=== PATIENT | female | born 1970 | race Caucasian/White ===

== ENCOUNTER 2016-06-10 16:37 | Emergency (ER) | payer OTHER ==
[~2016-06-10] VITALS: Ht 162.6 cm; Wt 97.0 kg
[~2016-06-10 16:37] MED LIST: ATV5X PO; GABA-112 PO; INSPMPNVLG SQ; MAGN400T6 PO; ONDA4TAB46 PO; OXYC-57 PO; PRLSR20 PO; SRQ400 PO; TRAM-10 PO
[2016-06-10 16:44] VITALS: TEMP 37.4; Ht 162.6 cm; Wt 97.0 kg
[2016-06-10] MEDS ORDERED: SODIUM CHLORIDE 0.9% 1000ML 1,000 ML IV STA (17:43)
[2016-06-10] MEDS ORDERED: METOCLOPRAMIDE HCL INJ 5 MG/ML 2 ML VIAL IM STA (17:48)
--- NOTE | 2016-06-10 17:48 | EMERGENCY ROOM VISIT NOTE ---
History Report prepared by Ingridibsharon: Aida Fry Under the Supervision of: Dr. Raoul Ayala D.O. First contact with patient: 17:39 Chief Complaint: URINARY SYMPTOMS Stated Complaint: BACK PAIN, CRAMPING, TROUBLE URINATING Nursing Triage Summary: Possible UTI. Has alot of pain in lower back, cramping, and trouble urinating. History of kidney stones. History of Present Illness The patient is a 45 year old female who presents to the Emergency Room with complaints of persistent urinary symptoms that started last night. She complains of increased urinary frequency, difficulty urinating and a feeling of incomplete emptying. She also complains of pain in her lower abdomen and bilateral low back. She rates her discomfort as a 9/10. She admits to a history of previous kidney stones, but states she has not had one in about 20 years. The patient also complains of nausea but has not vomited or experienced diarrhea. She has a history of cirrhosis and states that has been causing her pain recently as well. She has not noticed any gross hematuria. Source of History: patient Onset: last night Position: other (urinary system) Symptom Intensity: 9/10 Timing: other (persistent) Associated Symptoms: + nausea, No diarrhea, No vomiting Review of Systems See HPI for pertinent positives and negatives. A total of ten systems were reviewed and were otherwise negative. Past Medical & Surgical Medical Problems: [phone] [id number] (2) Abdominal pain (3) Abdominal pain (4) Abdominal pain (5) Abdominal pain (6) Abdominal pain (7) Back pain (8) Bipolar Disorder, Unspecified (9) Bronchitis (10) Change in mental status (11) Cirrhosis of liver (12) Diab Estelita Wo Compl, Type Ii Or Unspec Type, Not Uncntrld (13) Dizziness (14) Dysmetabolic Syndrome X (15) Dysthymic Disorder (16) Head ache (17) Headache (18) Hyperglycemia (19) Hyperglycemia (20) Hypertension Nos (21) Hypokalemia (22) Irritable Bowel Syndrome (23) Migraine (24) Migraine (25) Migraine Unspecified W/O Intractable Migraine (26) MENDEZ (27) Palpitations (28) Pancreatitis (29) Pneumonia (30) Reflux Esophagitis (31) right kidney fibrosis (32) Slurred speech (33) Syncopal episodes (34) Syncope (35) Vaginal spotting (36) Weakness Surgical Problems: (1) Port catheter in place (2) Tubal Ligation Status Family History Diabetes mellitus Hypertension Kidney disease Social History Smoking Status: Never Smoker Alcohol Use: none Drug Use: none Marital Status: Housing Status: lives with family Occupation Status: unemployed Current/Historical Medications Scheduled Atenolol (Tenormin), 100 MG PO BID Atorvastatin (Atorvastatin Calcium), 40 MG PO HS Gabapentin (Neurontin), 100 MG PO TID Insulin Aspart (novoLOG INSULIN PUMP ), UNITS SQ UD Lisinopril (Lisinopril), 10 MG PO HS Magnesium Oxide (Mag-Ox), 400 MG PO HS Meloxicam (Mobic), 7.5 MG PO HS Metformin Hcl (Glucophage), 1,000 MG PO BIDM Omeprazole (Prilosec), 20 MG PO BID Potassium Chloride (Micro-K Ext Rel), 10 MEQ PO BID Quetiapine Fumarate (Quetiapine Fumarate), 400 MG PO HS Quetiapine Fumarate (Seroquel), 50 MG PO HS Ranitidine Hcl (Zantac), 150 MG PO BID Sulfa/Trimethoprim (Bactrim Ds 800MG/160MG), 1 TAB PO BID Tramadol (Ultram), 200 MG PO HS Trazodone Hcl (Trazodone), 200 MG PO HS Scheduled PRN Furosemide (Lasix), 40 MG PO DAILY PRN for Fluid Retention Glucagon (Glucagon Emergency Kit), 1 MG INJ UD PRN for HYPOGLYCEMIA PROTOCOL Ibuprofen (Advil), 600 MG PO Q6H PRN for Pain Loratadine (Claritin), 10 MG PO DAILY PRN for Allergies Ondansetron (Ondansetron HCl), 4 MG PO Q6H PRN for Nausea Oxycodone/Acetaminophen 5MG/325MG (Percocet 5MG/325MG), 1-2 TABLETS PO Q4H PRN for Pain Polyethylene Glycol 3350 (Miralax), 1 TBS PO HS PRN for Severe constipation Allergies Coded Allergies: Naproxen (Verified Allergy, Unknown, BLEEDING, 06/10/16) Physical Exam Vital Signs Date Time Temp Pulse Resp B/P Pulse Ox O2 Delivery O2 Flow Rate FiO2 06/10/16 19:40 103 19 145/89 96 Room Air 06/10/16 18:16 104 14 136/90 96 Room Air 1/3/17 16:44 37.4 116 18 148/97 95 Room Air Physical Exam GENERAL: Awake, alert, well-appearing, in no acute distress HENT: Normocephalic, atraumatic. Oropharynx unremarkable. EYES: Normal conjunctiva. Sclera non-icteric. NECK: Supple. No nuchal rigidity. FROM. No JVD. RESPIRATORY: Clear to auscultation. CARDIAC: Regular rate, normal rhythm. Extremities warm and well perfused. Pulses equal. ABDOMEN: Soft, non-distended. Diffusely tender throughout entire abdomen. No rebound or guarding. No masses. Normo active bowel sounds. RECTAL: Deferred. MUSCULOSKELETAL: Chest examination reveals no tenderness. The back is symmetrical on inspection without obvious abnormality. CVA tenderness to palpation bilaterally. No joint edema. LOWER EXTREMITIES: Calves are equal size bilaterally and non-tender. No edema. No discoloration. NEURO: Normal sensorium. No sensory or motor deficits noted. SKIN: No rash or jaundice noted. Medical Decision & Procedures ER Provider Diagnostic Interpretation: This CT scan was reviewed and interpreted by the radiologist and reviewed by myself. ABDOMEN AND PELVIS CT WITHOUT CONTRAST IMPRESSION: 1. Left-sided nephrolithiasis. No right renal calculi. No hydronephrosis. 2. No definite bowel wall thickening or obstruction. 3. Normal appendix. 4. Cirrhotic liver is again noted. Electronically signed by: Rudy Borden M.D. 06/10/2016 6:49 PM Laboratory Results 06/10/16 18:20 Red Blood Count 4.62, Mean Corpuscular Volume 82.9, Mean Corpuscular Hemoglobin 28.6, Mean Corpuscular Hemoglobin Concent 34.5, Mean Platelet Volume 9.6, Neutrophils (%) (Auto) 72.9, Lymphocytes (%) (Auto) 18.1, Monocytes (%) (Auto) 6.7, Eosinophils (%) (Auto) 1.7, Basophils (%) (Auto) 0.3, Neutrophils # (Auto) 8.56, Lymphocytes # (Auto) 2.12, Monocytes # (Auto) 0.79, Eosinophils # (Auto) 0.20, Basophils # (Auto) 0.03 06/10/16 18:20 Test 06/10/16 18:15 06/10/16 18:20 Urine Color YELLOW Urine Appearance CLOUDY (CLEAR) Urine pH 5.5 (4.5-7.5) Urine Specific [place] 1.011 (1.000-1.030) Urine Protein TRACE (NEG) Urine Glucose (UA) NEG (NEG) Urine Ketones NEG (NEG) Urine Occult Blood 2+ (NEG) Urine Nitrite NEG (NEG) Urine Bilirubin NEG (NEG) Urine Urobilinogen NEG (NEG) Urine Leukocyte Esterase LARGE (NEG) Urine WBC (Auto) >30 /hpf (0-5) Urine RBC (Auto) 10-30 /hpf (0-4) Urine Hyaline Casts (Auto) 1-5 /lpf (0-5) Urine Epithelial Cells (Auto) 20-30 /lpf (0-5) Urine Bacteria (Auto) NEG (NEG) White Blood Count 11.73 K/uL (4.8-10.8) Red Blood Count 4.62 M/uL (4.2-5.4) Hemoglobin 13.2 g/dL (12.0-16.0) Hematocrit 38.3 % (37-47) Mean Corpuscular Volume 82.9 fL (80-100) Mean Corpuscular Hemoglobin 28.6 pg (25-34) Mean Corpuscular Hemoglobin Concent 34.5 g/dl (32-36) Platelet Count 163 K/uL (130-400) Mean Platelet Volume 9.6 fL (7.4-10.4) Neutrophils (%) (Auto) 72.9 % Lymphocytes (%) (Auto) 18.1 % Monocytes (%) (Auto) 6.7 % Eosinophils (%) (Auto) 1.7 % Basophils (%) (Auto) 0.3 % Neutrophils # (Auto) 8.56 K/uL (1.4-6.5) Lymphocytes # (Auto) 2.12 K/uL (1.2-3.4) Monocytes # (Auto) 0.79 K/uL (0.11-0.59) Eosinophils # (Auto) 0.20 K/uL (0-0.5) Basophils # (Auto) 0.03 K/uL (0-0.2) RDW Standard Deviation 42.6 fL (36.4-46.3) RDW Coefficient of Variation 14.2 % (11.5-14.5) Immature Granulocyte % (Auto) 0.3 % Immature Granulocyte # (Auto) 0.03 K/uL (0.00-0.02) Anion Gap 10.0 mmol/L (3-11) Est Creatinine Clear Calc Drug Dose 94.3 ml/min Estimated GFR () 94.6 Estimated GFR (Non- 81.6 BUN/Creatinine Ratio 11.6 (10-20) Calcium Level 9.2 mg/dl (8.5-10.1) Total Bilirubin 0.4 mg/dl (0.2-1) Direct Bilirubin 0.1 mg/dl (0-0.2) Aspartate Amino Transf (AST/SGOT) 42 U/L (15-37) Alanine Aminotransferase (ALT/SGPT) 28 U/L (12-78) Alkaline Phosphatase 143 U/L (45-117) Total Protein 8.1 gm/dl (6.4-8.2) Albumin 3.8 gm/dl (3.4-5.0) Laboratory results reviewed by me Medications Administered Medications (Trade) Dose Ordered Sig/Farzad Route Start Time Stop Time Status Last Admin Dose Admin Sodium Chloride (Nss 1000ml) 1,000 ml @ 999 mls/hr Q1H1M STAT IV 06/10/16 17:43 06/10/16 18:43 DC 06/10/16 18:13 999 MLS/HR Morphine Sulfate (MoRPHine SULFATE INJ) 8 mg Q1H PRN IV 06/10/16 18:00 06/10/16 20:31 DC 06/10/16 18:14 8 MG Metoclopramide HCl (Reglan Inj) 10 mg NOW STAT IV 06/10/16 18:14 06/10/16 18:16 DC 06/10/16 18:29 10 MG Morphine Sulfate (MoRPHine SULFATE INJ) 10 mg NOW STAT IV 06/10/16 19:10 06/10/16 19:11 DC 06/10/16 19:36 10 MG Trimethoprim/ Sulfamethoxazole (Septra Ds 800/ 160MG Tab) 1 tab NOW STAT PO 06/10/16 19:19 06/10/16 19:20 DC 06/10/16 19:36 1 TAB Trimethoprim/ Sulfamethoxazole (Sulfameth/ Trimeth Ds 800/ 160MG Home Pack) 1 homepack UD ONCE PO 06/10/16 19:30 06/10/16 19:31 DC 06/10/16 19:37 1 HOMEPACK Phenazopyridine HCl (Phenazopyridine HCl 200MG Home Pack) 1 homepack UD ONCE PO 06/10/16 19:30 06/10/16 19:31 DC 06/10/16 19:37 1 HOMEPACK Phenazopyridine HCl (Pyridium Tab) 200 mg NOW STAT PO 06/10/16 19:19 06/10/16 19:20 DC 06/10/16 19:37 200 MG ED Course 174: The patient was evaluated in room B8. A complete history and physical exam was performed. 1743: NSS 1000 ml @ 999 mls/hr IV. 174: Reglan 10 mg IV. 1800: Morphine Sulfate 8 mg IV. 1813: Reglan 10 mg IV. 1899: I reevaluated the patient. She states her pain is slightly better. I will order more medication. 1909: Morphine Sulfate 10 mg IV. 1918: Pyridium 200 mg PO, Septra Ds 800/160 mg 1 tab PO. 1929: Phenazopyridine 200 mg 1 home pack PO, Trimethoprim/Sulfamethoxazole 800/ 10 mg 1 home pack PO. 1934: I reevaluated the patient. She is feeling much better. I discussed her results and discharge instructions and she verbalized complete understanding and agreement. Medical Decision Prior records/ancillary studies reviewed. Triage Nursing notes reviewed and agree them. The patient's history was concerning for abdominal pain. Differential diagnosis: Etiologies such as appendicitis, diverticulitis, PUD, biliary pathology, UTI, pancreatitis, obstruction, mesenteric ischemia, aortic pathology, infections, inflammatory bowel disease, renal colic, as well as others were entertained. MDM: Patient is a 45-year-old female with a history of cirrhosis secondary to an MENDEZ. She comes in with a complaint of dysuria. Hesitancy and urinary frequency with abdominal pain. Patient was concern for a kidney stone. Lab CT scan and urinalysis review stable cirrhosis and a UTI. Pain was treated with morphine. She was made comfortable. She remained stable and was comfortable in the emergency room under my care she understands instructions take all of her medications as directed. She'll return to emergency department as needed and follow up with her primary care provider 2 days. The patient's presentation and history is c/w the impression provided. A partial list of DDx that has been considered is listed above. By the evaluation outlined above other emergent etiologies such as those listed in the differential, as well as others, were deemed relatively unlikely. The patient has been informed about today's findings. All questions were answered to satisfaction and understanding. They are pleased with the care provided. Patient education and return instructions were discussed as per my usual and the patient was discharged in stable condition as agreed upon by the patient. The patient was referred for close follow-up and informed that they will need to call to schedule appointment during the next business hours. The chart was completed utilizing a scribe and [employer] Speech voice recognition software. Utilizing these services results in errors at time as they are imperfect. Grammatical errors, random word insertions, pronoun errors, and incomplete sentences are an occasional consequence of this system due to software limitations, ambient noise, and hardware issues. Any formal questions or concerns about the content, text, or information contained within the body of this dictation should be directly addressed to the physician for clarification. Impression Primary Impression: Urinary tract infection Additional Impressions: Hemorrhagic cystitis, Symptoms of urinary tract infection, MENDEZ (nonalcoholic steatohepatitis), Liver cirrhosis secondary to MENDEZ, Abdominal pain Scribe Attestation The scribe's documentation has been prepared under my direction and personally reviewed by me in its entirety. I confirm that the note above accurately reflects all work, treatment, procedures, and medical decision making performed by me. Departure Information Dispostion Home / Self-Care Prescriptions Sulfa/Trimethoprim (Bactrim Ds 800MG/160MG) Tab 1 TAB PO BID, #14 TAB Prov: Raoul Ayala JR., DO 06/10/16 Referrals Scott Weldon M.D. (PCP) Patient Instructions A Signature Page, ED Abd Pain Cause Unkn Fem Ch, ED Hematuria, ED UTI Cystitis Female, My [facility] Additional Instructions Please take all medications as directed to completion. Please drink plenty of fluids. Return to the emergency department in 12 hours if pain is uncontrolled with medications or with vomiting and unable to keep medications in. CT scan shows stable cirrhosis.
[2016-06-10] MEDS ORDERED: MELO7.5T5 PO (17:56)
[2016-06-10] MEDS ORDERED: MoRPHine SULFATE 10 MG/ML CARP/VIAL IV PRN (18:00)
[2016-06-10] MEDS ORDERED: METOCLOPRAMIDE HCL INJ 5 MG/ML 2 ML VIAL IV STA (18:14)
[2016-06-10 18:38] LABS: BASO % 0.3 %; BASO ABS # 0.03 K/uL (0-0.2); COMPLETE YES; EOS % 1.7 %; HEMATOCRIT 38.3 % (37-47); IG% 0.3 %; LYMPH % 18.1 %; LYMPH ABS # 2.12 K/uL (1.2-3.4); MEAN CELL VOLUME 82.9 fL (80-100); MEAN CORPUSCULAR HEMOGLOBIN 28.6 pg (25-34); MEAN CORPUSCULAR HGB CONC 34.5 g/dl (32-36); MEAN PLATELET VOLUME 9.6 fL (7.4-10.4); MONO % 6.7 %; NEUT % 72.9 %; PLATELET COUNT 163 K/uL (130-400); RED BLOOD COUNT 4.62 M/uL (4.2-5.4); WHITE BLOOD COUNT 11.73 K/uL (4.8-10.8)
--- NOTE | 2016-06-10 18:51 | DIAGNOSTIC IMAGING REPORT ---
ABDOMEN AND PELVIS CT WITHOUT CONTRAST CT DOSE: 1668.16 mGy.cm HISTORY: Back pain. Difficulty urinating. ? Kidney stone, h/o stones and MENDEZ w/ cirrhosis TECHNIQUE: Multiaxial CT images of the abdomen and pelvis were performed without the use of intravenous and oral contrast according to the standard department stone protocol. COMPARISON STUDY: Abdomen and pelvis CT 11/22/2015. FINDINGS: The lung bases are clear. Calcified disc fragment at L4-L5 with mild central canal narrowing. This remains unchanged. The liver is mildly enlarged and diffusely heterogeneous. The liver demonstrates a nodular contour consistent with cirrhosis. There is a 5 mm hypodense lesion within the right hepatic lobe which is too small to characterize. The unenhanced spleen, gallbladder, adrenal glands, pancreas, and right kidney are unremarkable. There is a punctate stone within the upper pole of the left kidney. No hydronephrosis. The bladder is unremarkable. No ureteral calculi. No retroperitoneal lymphadenopathy. The uterus and bilateral adnexa are unremarkable. Suboptimal evaluation for bowel pathology due to the lack of intravenous and oral contrast. However, there is no definite bowel wall thickening or obstruction. Normal appendix. IMPRESSION: 1. Left-sided nephrolithiasis. No right renal calculi. No hydronephrosis. 2. No definite bowel wall thickening or obstruction. 3. Normal appendix. 4. Cirrhotic liver is again noted. Electronically signed by: Rudy Borden M.D. 06/10/2016 6:49 PM
[2016-06-10 19:00] LABS: BUN/CREATININE RATIO 11.6 (10-20); CALCIUM 9.2 mg/dl (8.5-10.1); CREATININE 0.87 mg/dl (0.60-1.20); POTASSIUM 4.1 mmol/L (3.5-5.1)
[2016-06-10 19:04] LABS: URINE APPEARANCE CLOUDY (CLEAR); URINE BILIRUBIN NEG (NEG); URINE COLOR YELLOW; URINE EPITHELIAL CELL AUTO 20-30 /lpf (0-5); URINE NITRITE NEG (NEG); URINE PH 5.5 (4.5-7.5); URINE SPECIFIC GRAVITY 1.011 (1.000-1.030); UROBILINOGEN NEG (NEG)
[2016-06-10 19:06] LABS: MANUAL MICROSCOPIC REQUIRED? NO; REVIEW REQ? NO
[2016-06-10] MEDS ORDERED: MoRPHine SULFATE 10 MG/ML CARP/VIAL IV STA (19:10)
[2016-06-10] MEDS ORDERED: PHENAZOPYRIDINE HCL 200 MG TAB PO STA (19:19)
[2016-06-10] MEDS ORDERED: SULFAMETHOXAZOLE/TRIMETHOPRIM DS 800/160MG TAB PO STA (19:19)
[2016-06-10] MEDS ORDERED: SULF800T23 PO (19:24)
[2016-06-10] MEDS ORDERED: PHENAZOPYRIDINE HOME PACK 200 MG VIAL PO ONE (19:30)
[2016-06-10] MEDS ORDERED: SEPTRA DS HOME PACK 1 EA VIAL PO ONE (19:30)
[2016-06-10 19:40] VITALS: BP 145/89; PULSE 103; O2SAT 96
[2016-07-02] MEDS ORDERED: TRAZ100T29 PO (11:23)
[2016-11-12] MEDS ORDERED: VITA400C3 PO (20:34)
[2016-11-12] MEDS ORDERED: ALBI1INJ2 INJ (20:34)
[2016-11-12] MEDS ORDERED: LORA-741 PO (20:34)
[2016-11-12] MEDS ORDERED: MILK250C PO (20:34)
[2016-11-13] MEDS ORDERED: CYCL10TA7 PO (15:43)
[2016-11-13] MEDS ORDERED: QUET1TAB13 PO (15:43)
[2016-12-04] MEDS ORDERED: POTA10CA28 PO (08:23)
== END 2016-06-10 19:59 | disposition home or self-care (01) ==
LOC: C.EDB 16:39
DX: N39.0 Urinary tract infection, site not specified (principal); K75.81 Nonalcoholic steatohepatitis (NASH); Z87.442 Personal history of urinary calculi; F31.9 Bipolar disorder, unspecified; K74.60 Unspecified cirrhosis of liver; E11.9 Type 2 diabetes mellitus without complications; K21.0 Gastro-esophageal reflux disease with esophagitis; I10 Essential (primary) hypertension; Z83.3 Family history of diabetes mellitus; Z79.4 Long term (current) use of insulin; Z79.899 Other long term (current) drug therapy; Z87.01 Personal history of pneumonia (recurrent); K58.9 Irritable bowel syndrome, unspecified; Z98.51 Tubal ligation status; Z82.49 Family history of ischemic heart disease and other diseases of the circulatory system

== ENCOUNTER 2016-06-19 18:55 | Emergency (ER) | payer OTHER ==
[~2016-06-19] VITALS: Ht 162.6 cm; Wt 98.0 kg
[~2016-06-19 18:55] MED LIST changes: -ATV5X PO; +MELO7.5T5 PO; -ONDA4TAB46 PO; +SULF800T23 PO
[2016-06-19 18:57] VITALS: Ht 162.6 cm; Wt 98.0 kg
[2016-06-19] MEDS ORDERED: MoRPHine SULFATE 10 MG/ML CARP/VIAL IV STA (19:18)
[2016-06-19] MEDS ORDERED: ONDANSETRON INJ 2 MG/ML 2 ML VIAL IV STA (19:18)
[2016-06-19 19:47] LABS: BASO % 0.4 %; BASO ABS # 0.05 K/uL (0-0.2); COMPLETE YES; EOS % 2.7 %; HEMATOCRIT 37.8 % (37-47); IG% 0.3 %; LYMPH % 22.9 %; LYMPH ABS # 2.84 K/uL (1.2-3.4); MEAN CELL VOLUME 82.4 fL (80-100); MEAN CORPUSCULAR HEMOGLOBIN 28.3 pg (25-34); MEAN CORPUSCULAR HGB CONC 34.4 g/dl (32-36); MEAN PLATELET VOLUME 9.4 fL (7.4-10.4); MONO % 7.6 %; NEUT % 66.1 %; PLATELET COUNT 191 K/uL (130-400); RED BLOOD COUNT 4.59 M/uL (4.2-5.4); WHITE BLOOD COUNT 12.39 K/uL (4.8-10.8)
[2016-06-19 20:05] LABS: BUN/CREATININE RATIO 11.7 (10-20); CALCIUM 8.8 mg/dl (8.5-10.1); CREATININE 0.88 mg/dl (0.60-1.20)
[2016-06-19 20:14] LABS: URINE APPEARANCE TURBID (CLEAR); URINE BILIRUBIN NEG (NEG); URINE COLOR YELLOW; URINE EPITHELIAL CELL AUTO 0-5 /lpf (0-5); URINE NITRITE NEG (NEG); URINE SPECIFIC GRAVITY 1.016 (1.000-1.030); UROBILINOGEN NEG (NEG); ZZUR CULT IF INDIC CLEAN CATCH YES
[2016-06-19 20:29] LABS: MANUAL MICROSCOPIC REQUIRED? NO; REVIEW REQ? YES
[2016-06-19] MEDS ORDERED: MoRPHine SULFATE 4 MG/ML 1 ML CARP\\VIAL IV STA (20:48)
[2016-06-19] MEDS ORDERED: CEFDINIR 250 MG/5 ML 60 ML PO STA ×2 (21:34→21:47)
[2016-06-19] MEDS ORDERED: CEFD250S3 PO (21:41)
--- NOTE | 2016-06-19 21:42 | EMERGENCY ROOM VISIT NOTE ---
History First contact with patient: 19:08 Chief Complaint: URINARY SYMPTOMS Stated Complaint: UTI, BLADDER Nursing Triage Summary: UTI symptoms since last Thursday despite being on antibiotics; cold History of Present Illness The patient is a 45 year old female who presents to the Emergency Room via private vehicle with complaints of "UTI, bladder". The patient states that she was here last Thursday and diagnosed with a UTI/bladder infection and took her last antibiotic pill last night. She states that she had resolution of her symptoms until around 10 AM today they begun to return. She states that the symptoms she has now are exactly the same that she had when she was here Thursday. Patient states she has cramping in the right lower quadrant region as well as morning when she is in cramping in the low back. She does have a history of 2 herniated discs of which cause her chronic pain. She states that she try to drink lots of water when the symptoms began again around 10 AM but that since she started with the dysuria. She states that she does not feel well. The pain in cramping in the pelvic region radiating into the back of which she rates the pain as a 9/10 in the pelvic region. There is urinary hesitancy. Patient again notes these are the same symptoms that she had on Thursday. She denies any chest pain, shortness of breath, fevers, chills, vaginal discharge, vaginal bleeding, lower extremity weakness, lower bladder incontinence, numbness or tingling in genital region Review of Systems A complete 10-point Review of Systems was discussed with the patient, with pertinent positives and negatives listed in the History of Present Illness. All remaining Review of Systems questions can be considered negative unless otherwise specified. Past Medical/Surgical History Medical Problems: (1) [address] (2) Abdominal pain (3) Abdominal pain (4) Abdominal pain (5) Abdominal pain (6) Abdominal pain (7) Back pain (8) Bipolar Disorder, Unspecified (9) Bronchitis (10) Change in mental status (11) Cirrhosis of liver (12) Diab Estelita Wo Compl, Type Ii Or Unspec Type, Not Uncntrld (13) Dizziness (14) Dysmetabolic Syndrome X (15) Dysthymic Disorder (16) Head ache (17) Headache (18) Hyperglycemia (19) Hyperglycemia (20) Hypertension Nos (21) Hypokalemia (22) Irritable Bowel Syndrome (23) Migraine (24) Migraine (25) Migraine Unspecified W/O Intractable Migraine (26) MENDEZ (27) Palpitations (28) Pancreatitis (29) Pneumonia (30) Reflux Esophagitis (31) right kidney fibrosis (32) Slurred speech (33) Syncopal episodes (34) Syncope (35) Vaginal spotting (36) Weakness Surgical Problems: (1) Port catheter in place (2) Tubal Ligation Status Family History Diabetes mellitus Hypertension Kidney disease Social History Smoking Status: Never Smoker Alcohol Use: none Drug Use: none Marital Status: Housing Status: lives with family Occupation Status: unemployed Current/Historical Medications Scheduled Atenolol (Tenormin), 100 MG PO BID Atorvastatin (Atorvastatin Calcium), 40 MG PO HS Cefdinir (Omnicef), 300 MG PO Q12H Gabapentin (Neurontin), 100 MG PO TID Insulin Aspart (novoLOG INSULIN PUMP ), UNITS SQ UD Lisinopril (Lisinopril), 10 MG PO HS Magnesium Oxide (Mag-Ox), 400 MG PO HS Meloxicam (Mobic), 7.5 MG PO HS Metformin Hcl (Glucophage), 1,000 MG PO BIDM Omeprazole (Prilosec), 20 MG PO BID Potassium Chloride (Micro-K Ext Rel), 10 MEQ PO BID Quetiapine Fumarate (Quetiapine Fumarate), 400 MG PO HS Quetiapine Fumarate (Seroquel), 50 MG PO HS Ranitidine Hcl (Zantac), 150 MG PO BID Sulfa/Trimethoprim (Bactrim Ds 800MG/160MG), 1 TAB PO BID Tramadol (Ultram), 200 MG PO HS Trazodone Hcl (Trazodone), 200 MG PO HS Scheduled PRN Furosemide (Lasix), 40 MG PO DAILY PRN for Fluid Retention Glucagon (Glucagon Emergency Kit), 1 MG INJ UD PRN for HYPOGLYCEMIA PROTOCOL Ibuprofen (Advil), 600 MG PO Q6H PRN for Pain Loratadine (Claritin), 10 MG PO DAILY PRN for Allergies Ondansetron (Ondansetron HCl), 4 MG PO Q6H PRN for Nausea Oxycodone/Acetaminophen 5MG/325MG (Percocet 5MG/325MG), 1-2 TABLETS PO Q4H PRN for Pain Polyethylene Glycol 3350 (Miralax), 1 TBS PO HS PRN for Severe constipation Allergies Coded Allergies: Naproxen (Verified Allergy, Unknown, BLEEDING, 06/19/16) Physical Exam Vital Signs Date Time Temp Pulse Resp B/P Pulse Ox O2 Delivery O2 Flow Rate FiO2 06/19/16 21:58 36.8 97 18 133/81 98 06/19/16 21:36 97 18 133/81 98 Room Air 06/19/16 18:57 36.8 114 20 137/85 96 Room Air Physical Exam VITAL SIGNS - Vital signs and nursing notes were reviewed. Patient is afebrile , normotensive, she is tachycardic and is saturating well on room air 96%. GENERAL -45-year-old female appearing her stated age who is in no acute distress. Communicates well with provider and answers questions appropriately. SKIN - Without rashes. HEAD - NC/AT. EYES - Sclera anicteric. Palpebral conjunctiva pink and moist with no injection noted. EARS - No deformities of external structures noted on gross examination bilaterally. NOSE - Midline and without cyanosis. MOUTH/OROPHARYNX - Without perioral cyanosis. LUNGS - Chest wall symmetric without accessory muscle use, intercostals retractions, or central cyanosis. Normal vesicular breath sounds CTA B/L. No wheezes, rales, or rhonchi appreciated. CARDIAC - RRR with S1/S2. No murmur, rubs, or gallops appreciated. ABDOMEN - Abdominal contour without pulsations or visible masses. BS normoactive all four quadrants. No identifiable tenderness, palpable masses, splenomegaly, or ascites noted. There is hepatomegaly noted this is chronic. EXTREMITIES - No clubbing or peripheral cyanosis. No pretibial edema present. +5 /5 strength noted in UE/LE bilaterally. NEUROLOGIC - Cranial nerves II through XII grossly intact. Sensory intact to light touch throughout. PSYCH - A&Ox3 and cooperates fully with examiner. Pt is very pleasant and interacts well with examiner. Patient respectfully declined pelvic exam. Medical Decision & Procedures Laboratory Results 06/19/16 19:37 Red Blood Count 4.59, Mean Corpuscular Volume 82.4, Mean Corpuscular Hemoglobin 28.3, Mean Corpuscular Hemoglobin Concent 34.4, Mean Platelet Volume 9.4, Neutrophils (%) (Auto) 66.1, Lymphocytes (%) (Auto) 22.9, Monocytes (%) (Auto) 7.6, Eosinophils (%) (Auto) 2.7, Basophils (%) (Auto) 0.4, Neutrophils # (Auto) 8.19, Lymphocytes # (Auto) 2.84, Monocytes # (Auto) 0.94, Eosinophils # (Auto) 0.33, Basophils # (Auto) 0.05 06/19/16 19:37 Test 06/19/16 19:37 06/19/16 19:51 White Blood Count 12.39 K/uL (4.8-10.8) Red Blood Count 4.59 M/uL (4.2-5.4) Hemoglobin 13.0 g/dL (12.0-16.0) Hematocrit 37.8 % (37-47) Mean Corpuscular Volume 82.4 fL (80-100) Mean Corpuscular Hemoglobin 28.3 pg (25-34) Mean Corpuscular Hemoglobin Concent 34.4 g/dl (32-36) Platelet Count 191 K/uL (130-400) Mean Platelet Volume 9.4 fL (7.4-10.4) Neutrophils (%) (Auto) 66.1 % Lymphocytes (%) (Auto) 22.9 % Monocytes (%) (Auto) 7.6 % Eosinophils (%) (Auto) 2.7 % Basophils (%) (Auto) 0.4 % Neutrophils # (Auto) 8.19 K/uL (1.4-6.5) Lymphocytes # (Auto) 2.84 K/uL (1.2-3.4) Monocytes # (Auto) 0.94 K/uL (0.11-0.59) Eosinophils # (Auto) 0.33 K/uL (0-0.5) Basophils # (Auto) 0.05 K/uL (0-0.2) RDW Standard Deviation 42.4 fL (36.4-46.3) RDW Coefficient of Variation 14.2 % (11.5-14.5) Immature Granulocyte % (Auto) 0.3 % Immature Granulocyte # (Auto) 0.04 K/uL (0.00-0.02) Anion Gap 10.0 mmol/L (3-11) Est Creatinine Clear Calc Drug Dose 93.7 ml/min Estimated GFR () 93.3 Estimated GFR (Non- 80.5 BUN/Creatinine Ratio 11.7 (10-20) Calcium Level 8.8 mg/dl (8.5-10.1) Urine Color YELLOW Urine Appearance TURBID (CLEAR) Urine pH 6.0 (4.5-7.5) Urine Specific [place] 1.016 (1.000-1.030) Urine Protein NEG (NEG) Urine Glucose (UA) 2+ (NEG) Urine Ketones NEG (NEG) Urine Occult Blood 3+ (NEG) Urine Nitrite NEG (NEG) Urine Bilirubin NEG (NEG) Urine Urobilinogen NEG (NEG) Urine Leukocyte Esterase LARGE (NEG) Urine WBC (Auto) >30 /hpf (0-5) Urine RBC (Auto) >30 /hpf (0-4) Urine Hyaline Casts (Auto) 1-5 /lpf (0-5) Urine Epithelial Cells (Auto) 0-5 /lpf (0-5) Urine Bacteria (Auto) 1+ (NEG) Medications Administered Medications (Trade) Dose Ordered Sig/Farzad Route Start Time Stop Time Status Last Admin Dose Admin Morphine Sulfate (MoRPHine SULFATE INJ) 6 mg NOW STAT IV 06/19/16 19:18 06/19/16 19:35 DC 06/19/16 19:46 6 MG Ondansetron HCl (Zofran Inj) 4 mg NOW STAT IV 06/19/16 19:18 06/19/16 19:35 DC 06/19/16 19:45 4 MG Morphine Sulfate (MoRPHine SULFATE INJ) 4 mg NOW STAT IV 06/19/16 20:48 06/19/16 20:49 DC 06/19/16 21:11 4 MG Cefdinir (Omnicef Susp) 300 mg NOW STAT PO 06/19/16 21:47 06/19/16 21:48 DC 06/19/16 21:50 300 MG Medical Decision Patient was seen and evaluated as above. I thoroughly reviewed the patient's previous visit to include the CT scan. The patient appears to have the same symptoms as when she was seen before and had a thorough workup. I did not feel that at this time benefits outweighed the risks of obtaining a new CT scan as there are no worsening of symptoms there just appeared to be a period of cessation and then return. She was noted to have slight leukocytosis last time. The CT scan did not reveal any emergent findings. I did elect to obtain IV access in order a CBC, PRP and UA clean catch culture if indicated. I unfortunately was unable to find a culture result from her previous visit as it appears she has failed upon Bactrim. In review the patient's blood work it appears that her glucose has been elevated above 200 but she notes this is normal for her. I'm concerned that she may develop recurrent UTIs secondary to this. The history I was concerned that there may be other abdominal etiologies however the exam reveals a non-distended, nontender abdomen that is not acute. I believe the pain is likely secondary to urethral burning from the UTI and cystitis. It is possible she is experiencing an early pyelonephritis however in the absence of fever, vomiting or any CVA tenderness this is unlikely. However, because the patient is felt upon one treatment I did find it important to identify the patient's urinalysis at this given time as well as CBC and PRP. The CBC reveals a leukocytosis of 12.39 with elevation of neutrophils which is slightly higher than when she was seen here before. PRP reveals random glucose of 260 and UA reveals 3+ occult blood, large leukocyte esterase, greater than 30 white blood cells and red blood cells and 1+ urine bacteria. This appears to be slightly progressed from the prior sample and believe that further antibiotic therapy is warranted for longer duration. I discussed the case with the in-house pharmacist who will provide recommendations and it was decided to treat the patient with Omnicef 300 mg twice a day for 14 days. I believe this is appropriate this time and do not feel that at this time the patient warrants admission. I do with leukocytosis at this time is minimal and does not represent a larger systemic infection. The patient appears likely stable and was instructed upon management and is to return if persistent or worsening. She was instructed that this medication may also not work well and that if she was to worsen anyway she is to return immediately and may need IV antibiotics at that time. She verbalizes understanding. The patient did request something for pain and was given morphine which I did see and she was given previously. This was given with Zofran as well. She did have good relief of her pain. Pelvic exam was respectfully declined. I did discuss the CT scan findings from previous visit and gave her report that she may discuss with her family doctor regarding the incidental findings. The patient was given the first dose of the antibiotic here with the remainder sent to her pharmacy. Initially was sent as a suspension but after talking with her was decided to do this via pill form. A new prescription was sent to the pharmacy for the pills. The patient was educated upon management and potential severity of the situation if she would worsen. She verbalizes understanding. She was instructed upon management of today's findings, had questions answered prior to discharge and was discharged home in good condition. I this time feel the patient is likely experiencing pain secondary to UTI however given that she is failed the first round of antibiotics do feel that a longer course is warranted from a different medication class. I believe that pyelonephritis is unlikely at this time as she states the pain is at the urethral region and she is getting slight pelvic cramping that radiates into her back. There was a mention of small kidney stone on the CT scan performed week ago but I do not feel that this is causing the patient's symptoms. The patient's symptoms are exactly the same as her previous visit and do agree that she likely is experiencing a UTI. I believe she was managed appropriately at this time patient and the patient seen With plan of care. I do not suspect any emergent or surgical nature to the patient's symptoms at this time. She is to follow-up with her family doctor regarding today's visit. In evaluation treatment this patient the following differential diagnoses were entertained: Appendicitis, UTI, pyelonephritis, sepsis, among others. Impression Primary Impression: UTI (urinary tract infection) Departure Information Dispostion Home / Self-Care Condition GOOD Prescriptions Cefdinir (OMNICEF) 300 Mg Cap 300 MG PO Q12H for 14 Days, #28 CAP Prov: Bert Barnes PA-C 06/19/16 Referrals Scott Weldon M.D. (PCP) Patient Instructions My [facility] Additional Instructions You were seen in the emergency Department for a urinary tract infection. This may be early onset pyelonephritis however I feel that this is unlikely at this time. You've been prescribed Omnicef. This is 300mg twice daily for 14 days. You were given you first dose here. This is to be 300 mg twice daily for 14 days. Please follow-up with your family doctor regarding today's visit. If you develop any worsening pain, fevers, chills, vomiting or any new/ concerning symptoms please return immediately.
[2016-06-19] MEDS ORDERED: CEFD300C2 PO (21:51)
[2016-06-19 21:58] VITALS: BP 133/81; PULSE 97; TEMP 36.8; O2SAT 98
[2016-07-02] MEDS ORDERED: TRAZ100T29 PO (11:23)
[2016-11-12] MEDS ORDERED: ALBI1INJ2 INJ (20:34)
[2016-11-12] MEDS ORDERED: LORA-741 PO (20:34)
[2016-11-12] MEDS ORDERED: VITA400C3 PO (20:34)
[2016-11-12] MEDS ORDERED: MILK250C PO (20:34)
[2016-11-13] MEDS ORDERED: CYCL10TA7 PO (15:43)
[2016-11-13] MEDS ORDERED: QUET1TAB13 PO (15:43)
[2016-12-04] MEDS ORDERED: POTA10CA28 PO (08:23)
== END 2016-06-19 21:58 | disposition home or self-care (01) ==
LOC: C.EDB 18:56 → C.EDD 21:58
DX: N39.0 Urinary tract infection, site not specified (principal); F31.9 Bipolar disorder, unspecified; E11.9 Type 2 diabetes mellitus without complications; I10 Essential (primary) hypertension; Z87.01 Personal history of pneumonia (recurrent); K21.0 Gastro-esophageal reflux disease with esophagitis; Z98.51 Tubal ligation status; Z83.3 Family history of diabetes mellitus; Z82.49 Family history of ischemic heart disease and other diseases of the circulatory system; Z79.4 Long term (current) use of insulin

== ENCOUNTER 2016-07-02 17:36 | Emergency (ER) | payer OTHER ==
[~2016-07-02] VITALS: Ht 162.6 cm; Wt 96.0 kg
[~2016-07-02 17:36] MED LIST changes: +CEFD300C2 PO; +TRAZ100T29 PO
[2016-07-02 17:39] VITALS: TEMP 37.1; Ht 162.6 cm; Wt 96.0 kg
[2016-07-02] MEDS ORDERED: ONDANSETRON INJ 2 MG/ML 2 ML VIAL IV STA ×2 (18:06→19:26)
[2016-07-02] MEDS ORDERED: TRAMADOL HCL 50 MG TAB PO STA (18:06)
[2016-07-02] MEDS ORDERED: ACETAMINOPHEN 500 MG TAB PO STA (18:06)
--- NOTE | 2016-07-02 18:11 | EMERGENCY ROOM VISIT NOTE ---
History Report prepared by Jaime: Jesse Sheth Under the Supervision of: Dr. Geovanni uCeto M.D. First contact with patient: 17:54 Chief Complaint: URINARY SYMPTOMS Stated Complaint: UTI,BLADDER/KIDNEY INFECTION, HEADACHE Nursing Triage Summary: see note History of Present Illness The patient is a 45 year old female who presents to the Emergency Room with complaints of persistent urinary tract infection symptoms that started around 3 weeks ago. The patient has been here 3 times this month for these symptoms. The first time she was here, she was diagnosed with a urinary tract infection and bladder infection. She was put on Bactrim. The patient was then here a couple weeks later with the same issues. Her white count was up and she was put on Cefprozil. The patient is continuing to be in discomfort, with bad back pain and a headache. She rates the pain as a 9 out of 10 in severity. She wants something for the pain. Source of History: patient, family Onset: Around 3 weeks ago Position: other (global - urinary tract infection symptoms) Symptom Intensity: 9 out of 10 in severity Timing: other (persistent) Associated Symptoms: + back pain, + headache Note: Associated symptoms: no other associated symptoms noted. Review of Systems See HPI for pertinent positives & negatives. A total of 10 systems reviewed and were otherwise negative. Past Medical & Surgical Medical Problems: (1) [id number] (2) Abdominal pain (3) Abdominal pain (4) Abdominal pain (5) Abdominal pain (6) Abdominal pain (7) Back pain (8) Bipolar Disorder, Unspecified (9) Bronchitis (10) Change in mental status (11) Cirrhosis of liver (12) Diab Estelita Wo Compl, Type Ii Or Unspec Type, Not Uncntrld (13) Dizziness (14) Dysmetabolic Syndrome X (15) Dysthymic Disorder (16) Head ache (17) Headache (18) Hyperglycemia (19) Hyperglycemia (20) Hypertension Nos (21) Hypokalemia (22) Irritable Bowel Syndrome (23) Migraine (24) Migraine (25) Migraine Unspecified W/O Intractable Migraine (26) MENDEZ (27) Palpitations (28) Pancreatitis (29) Pneumonia (30) Reflux Esophagitis (31) right kidney fibrosis (32) Slurred speech (33) Syncopal episodes (34) Syncope (35) Vaginal spotting (36) Weakness Surgical Problems: (1) Port catheter in place (2) Tubal Ligation Status Family History Diabetes mellitus Hypertension Kidney disease Social History Smoking Status: Never Smoker Alcohol Use: none Drug Use: none Marital Status: Housing Status: lives with family Occupation Status: unemployed Current/Historical Medications Scheduled Atenolol (Tenormin), 100 MG PO BID Atorvastatin (Atorvastatin Calcium), 40 MG PO HS Cefdinir (Omnicef), 300 MG PO Q12H Cyclobenzaprine HCl (Cyclobenzaprine HCl), 5-10 MG PO HS Gabapentin (Gabapentin), 100 MG PO TID Insulin Aspart (Novolog), 1 DOSE INJ UD Lisinopril (Lisinopril), 10 MG PO HS Magnesium Oxide (Mg Supplement (Magnesium Oxide), 241.3 MG PO HS Metformin Hcl (Glucophage), 1,000 MG PO BIDM Omeprazole (Prilosec), 20 MG PO BID Potassium Chloride (Micro-K Ext Rel), 10 MEQ PO BID Quetiapine Fumarate (Seroquel), 50 MG PO HS Quetiapine Fumarate (Seroquel), 400 MG PO HS Ranitidine Hcl (Zantac), 150 MG PO BID Tramadol HCl (Tramadol HCl), 100 MG PO HS Trazodone Hcl (Trazodone), 200 MG PO HS Scheduled PRN Furosemide (Lasix), 40 MG PO DAILY PRN for Fluid Retention Glucagon (Glucagon Emergency Kit), 1 MG INJ UD PRN for HYPOGLYCEMIA PROTOCOL Ibuprofen (Advil), 600 MG PO Q6H PRN for Pain Loratadine (Claritin), 10 MG PO DAILY PRN for Allergy Symptoms Ondansetron (Ondansetron HCl), 4 MG PO Q6H PRN for Nausea Polyethylene Glycol 3350 (Miralax), 1 TBS PO HS PRN for Severe constipation Allergies Coded Allergies: Naproxen (Verified Allergy, Unknown, BLEEDING, 06/19/16) Physical Exam Vital Signs Date Time Temp Pulse Resp B/P Pulse Ox O2 Delivery O2 Flow Rate FiO2 07/02/16 20:34 87 16 149/98 95 Room Air 07/02/16 19:07 104 16 180/108 95 Room Air 07/02/16 17:39 37.1 103 18 170/78 94 Room Air Physical Exam CONSTITUTIONAL: Mild painful distress. HEENT: No icterus, moist mucous membranes NECK: No meningismus, trachea is midline. CARDIOVASCULAR: Regular rate, normal perfusion RESPIRATORY: Unlabored breathing. Clear to auscultation. GASTROINTESTINAL: Non-tender GENITOURINARY: Mild bilateral flank tenderness. MUSCULOSKELETAL: Full range of motion NEUROLOGIC: No acute gross focal deficits. PSYCHIATRIC: Normal affect SKIN: Normal for ethnicity. Medical Decision & Procedures ER Provider Diagnostic Interpretation: CT results as stated below per my review and radiologist interpretation. CT SCAN OF THE ABDOMEN AND PELVIS WITH IV CONTRAST CLINICAL HISTORY: Generalized abdominal pain. Back pain. Urinary tract infection. COMPARISON STUDY: Multiple prior abdominal CT scans, most recently dated 06/10/2016. TECHNIQUE: Following the IV administration of 91 cc of Optiray 320, CT scan of the abdomen and pelvis is performed from the lung bases to the proximal femora. Images are reviewed in the axial, sagittal, and coronal planes. IV contrast was administered without complication. Automated dose control exposure was utilized. CT DOSE: 854.10 mGy.cm FINDINGS: Lung bases: The heart is normal in size and without pericardial effusion. The lung bases are clear. Liver: The contrast-enhanced liver is enlarged, measuring 22 cm in length. The liver demonstrates diffuse significant attenuation consistent with hepatic steatosis. There is nodularity of the hepatic surface contour suggesting early changes of cirrhosis. There is no intrahepatic biliary ductal dilatation. The hepatic veins and portal veins are patent. Gallbladder: Unremarkable. Spleen: Mildly enlarged, measuring 13.3 cm in length. Pancreas: Unremarkable. Adrenal glands: Unremarkable. Kidneys: The contrast enhanced kidneys are normal in size and without hydronephrosis. The kidneys enhance symmetrically. A punctate nonobstructing calculus is again seen in the upper pole of the left kidney on image #169 Abdominal vasculature: The abdominal aorta is normal in course and caliber. Bowel: The small bowel and colon are normal in course and caliber. There is mild colonic fecal retention. The appendix is well-visualized and normal. Peritoneum: There is no intraperitoneal free air or abdominal ascites. There is a fat-containing umbilical hernia. Lymphadenopathy: None. Pelvic viscera: The bladder, uterus, and adnexa are normal as visualized. There are small ovarian follicles. Numerous calcified phleboliths are noted in the pelvis. Skeletal structures: No lytic or blastic lesions are seen. A posterior disc osteophyte complex is noted at L4-L5. IMPRESSION: 1. There are no acute infectious or inflammatory findings in the abdomen or pelvis. 2. Hepatomegaly and hepatic steatosis with evidence of cirrhosis. 3. Mild splenomegaly. 4. Additional findings as above. Electronically signed by: Rickey Candelaria M.D. 07/02/2016 8:20 PM Dictated Date/Time: 07/02/2016 8:10 PM Laboratory Results 07/02/16 18:30 Red Blood Count 4.44, Mean Corpuscular Volume 83.1, Mean Corpuscular Hemoglobin 28.8, Mean Corpuscular Hemoglobin Concent 34.7, Mean Platelet Volume 9.7, Neutrophils (%) (Auto) 60.4, Lymphocytes (%) (Auto) 29.5, Monocytes (%) (Auto) 6.5, Eosinophils (%) (Auto) 2.9, Basophils (%) (Auto) 0.5, Neutrophils # (Auto) 5.06, Lymphocytes # (Auto) 2.47, Monocytes # (Auto) 0.54, Eosinophils # (Auto) 0.24, Basophils # (Auto) 0.04 07/02/16 18:30 Test 07/02/16 18:00 07/02/16 18:30 Urine Color YELLOW Urine Appearance CLEAR (CLEAR) Urine pH 6.5 (4.5-7.5) Urine Specific [place] 1.008 (1.000-1.030) Urine Protein NEG (NEG) Urine Glucose (UA) NEG (NEG) Urine Ketones NEG (NEG) Urine Occult Blood NEG (NEG) Urine Nitrite NEG (NEG) Urine Bilirubin NEG (NEG) Urine Urobilinogen NEG (NEG) Urine Leukocyte Esterase TRACE (NEG) Urine WBC (Auto) 1-5 /hpf (0-5) Urine RBC (Auto) 0-4 /hpf (0-4) Urine Hyaline Casts (Auto) 0 /lpf (0-5) Urine Epithelial Cells (Auto) >30 /lpf (0-5) Urine Bacteria (Auto) NEG (NEG) Urine Opiates Screen NEG (NEG) Urine Methadone, Qualitative NEG (NEG) Urine Barbiturates NEG (NEG) Urine Phencyclidine (PCP) Level NEG (NEG) Ur Amphetamine/Methamphetamine NEG (NEG) MDMA (Ecstasy) Screen NEG (NEG) Urine Benzodiazepines Screen NEG (NEG) Urine Cocaine Metabolite NEG (NEG) Urine Marijuana (THC) NEG (NEG) White Blood Count 8.37 K/uL (4.8-10.8) Red Blood Count 4.44 M/uL (4.2-5.4) Hemoglobin 12.8 g/dL (12.0-16.0) Hematocrit 36.9 % (37-47) Mean Corpuscular Volume 83.1 fL (80-100) Mean Corpuscular Hemoglobin 28.8 pg (25-34) Mean Corpuscular Hemoglobin Concent 34.7 g/dl (32-36) Platelet Count 161 K/uL (130-400) Mean Platelet Volume 9.7 fL (7.4-10.4) Neutrophils (%) (Auto) 60.4 % Lymphocytes (%) (Auto) 29.5 % Monocytes (%) (Auto) 6.5 % Eosinophils (%) (Auto) 2.9 % Basophils (%) (Auto) 0.5 % Neutrophils # (Auto) 5.06 K/uL (1.4-6.5) Lymphocytes # (Auto) 2.47 K/uL (1.2-3.4) Monocytes # (Auto) 0.54 K/uL (0.11-0.59) Eosinophils # (Auto) 0.24 K/uL (0-0.5) Basophils # (Auto) 0.04 K/uL (0-0.2) RDW Standard Deviation 42.9 fL (36.4-46.3) RDW Coefficient of Variation 14.3 % (11.5-14.5) Immature Granulocyte % (Auto) 0.2 % Immature Granulocyte # (Auto) 0.02 K/uL (0.00-0.02) Anion Gap 10.0 mmol/L (3-11) Est Creatinine Clear Calc Drug Dose 87.7 ml/min Estimated GFR () 87.2 Estimated GFR (Non- 75.3 BUN/Creatinine Ratio 11.9 (10-20) Calcium Level 9.1 mg/dl (8.5-10.1) Labs reviewed by ED physician. Medications Administered Medications (Trade) Dose Ordered Sig/Farzad Route Start Time Stop Time Status Last Admin Dose Admin Acetaminophen (Tylenol Tab) 1,000 mg NOW STAT PO 07/02/16 18:06 07/02/16 18:09 DC 07/02/16 18:42 1,000 MG Ondansetron HCl (Zofran Inj) 4 mg NOW STAT IV 07/02/16 18:06 07/02/16 18:09 DC 07/02/16 18:42 4 MG Tramadol HCl (Ultram Tab) 50 mg NOW STAT PO 07/02/16 18:06 07/02/16 18:09 DC 07/02/16 18:42 50 MG Hydromorphone HCl (Dilaudid Inj) 1 mg PRN STAT IV 07/02/16 18:58 07/02/16 18:59 DC 07/02/16 19:08 1 MG Ondansetron HCl (Zofran Inj) 4 mg NOW STAT IV 07/02/16 19:26 07/02/16 19:27 DC 07/02/16 19:56 4 MG Metoclopramide HCl (Reglan Inj) 10 mg Q6H IV 07/02/16 19:30 08/01/16 19:29 07/02/16 19:56 10 MG ED Course 1800: Past medical records reviewed. The patient was evaluated in room C10. A complete history and physical examination was performed. 1805: Ordered Ultram Tab 50 mg PO, Zofran Inj 4 mg IV, Tylenol Tab 1000 mg PO. 1857: Ordered Dilaudid Inj 1 mg IV PRN. 1925: Ordered Zofran Inj 4 mg IV. 1929: Ordered Reglan Inj 10 mg IV. 2039: I reevaluated the patient and she is resting comfortably. The patient verbally expressed agreement and understanding of the treatment plan. The patient will be discharged. 2044: Ordered Zofran ODT 4MG Home Pack 1 homepack PO. Medical Decision Differential diagnoses include: pyelonephritis, back pain, UTI. 45-year-old presented to the emergency department for concern over recurrent UTI and kidney infection. CAT scan was unremarkable and urine negative for signs of infectious processes. Prior to discharge patient appeared comfortable after analgesics and antiemetics at which time she noted a history of chronic back pain and herniated disks. Entertained the diagnosis of musculoskeletal etiologies and she understands to follow-up with her primary doctor tomorrow morning for analgesic needs. Impression Primary Impression: Flank pain Scribe Attestation The scribe's documentation has been prepared under my direction and personally reviewed by me in its entirety. I confirm that the note above accurately reflects all work, treatment, procedures, and medical decision making performed by me. Departure Information Dispostion Home / Self-Care Referrals Scott Weldon M.D. (PCP) Forms HOME CARE DOCUMENTATION FORM, IMPORTANT VISIT INFORMATION Patient Instructions ED Flank Pain Uncertain Cause, [facility]
[2016-07-02 18:45] LABS: BASO % 0.5 %; BASO ABS # 0.04 K/uL (0-0.2); COMPLETE YES; EOS % 2.9 %; HEMATOCRIT 36.9 % (37-47); IG% 0.2 %; LYMPH % 29.5 %; LYMPH ABS # 2.47 K/uL (1.2-3.4); MEAN CELL VOLUME 83.1 fL (80-100); MEAN CORPUSCULAR HEMOGLOBIN 28.8 pg (25-34); MEAN CORPUSCULAR HGB CONC 34.7 g/dl (32-36); MEAN PLATELET VOLUME 9.7 fL (7.4-10.4); MONO % 6.5 %; NEUT % 60.4 %; PLATELET COUNT 161 K/uL (130-400); RED BLOOD COUNT 4.44 M/uL (4.2-5.4); WHITE BLOOD COUNT 8.37 K/uL (4.8-10.8)
[2016-07-02 18:48] LABS: URINE APPEARANCE CLEAR (CLEAR); URINE BILIRUBIN NEG (NEG); URINE COLOR YELLOW; URINE EPITHELIAL CELL AUTO >30 /lpf (0-5); URINE NITRITE NEG (NEG); URINE PH 6.5 (4.5-7.5); URINE SPECIFIC GRAVITY 1.008 (1.000-1.030); UROBILINOGEN NEG (NEG); ZZUR CULT IF INDIC CLEAN CATCH NO
[2016-07-02 18:51] LABS: MANUAL MICROSCOPIC REQUIRED? NO; REVIEW REQ? NO
[2016-07-02] MEDS ORDERED: HYDROmorphone INJ 1 MG/ML SYR IV STA (18:58)
[2016-07-02] MEDS ORDERED: CYCL10TA7 PO (19:01)
[2016-07-02] MEDS ORDERED: QUET1TAB13 PO (19:01)
[2016-07-02] MEDS ORDERED: MAGN400T7 PO (19:08)
[2016-07-02 19:10] LABS: BUN/CREATININE RATIO 11.9 (10-20); CALCIUM 9.1 mg/dl (8.5-10.1); CREATININE 0.93 mg/dl (0.60-1.20); POTASSIUM 3.6 mmol/L (3.5-5.1)
[2016-07-02 19:12] LABS: BENZODIAZEPINE, URINE NEG (NEG); COCAINE,URINE NEG (NEG); PHENCYCLIDINE, URINE NEG (NEG)
[2016-07-02] MEDS ORDERED: METOCLOPRAMIDE HCL INJ 5 MG/ML 2 ML VIAL IV SCH (19:30)
[2016-07-02] MEDS ORDERED: OPTIRAY 320 IV PRN (19:45)
--- NOTE | 2016-07-02 20:22 | DIAGNOSTIC IMAGING REPORT ---
CT SCAN OF THE ABDOMEN AND PELVIS WITH IV CONTRAST CLINICAL HISTORY: Generalized abdominal pain. Back pain. Urinary tract infection. COMPARISON STUDY: Multiple prior abdominal CT scans, most recently dated 06/10/2016. TECHNIQUE: Following the IV administration of 91 cc of Optiray 320, CT scan of the abdomen and pelvis is performed from the lung bases to the proximal femora. Images are reviewed in the axial, sagittal, and coronal planes. IV contrast was administered without complication. Automated dose control exposure was utilized. CT DOSE: 854.10 mGy.cm FINDINGS: Lung bases: The heart is normal in size and without pericardial effusion. The lung bases are clear. Liver: The contrast-enhanced liver is enlarged, measuring 22 cm in length. The liver demonstrates diffuse significant attenuation consistent with hepatic steatosis. There is nodularity of the hepatic surface contour suggesting early changes of cirrhosis. There is no intrahepatic biliary ductal dilatation. The hepatic veins and portal veins are patent. Gallbladder: Unremarkable. Spleen: Mildly enlarged, measuring 13.3 cm in length. Pancreas: Unremarkable. Adrenal glands: Unremarkable. Kidneys: The contrast enhanced kidneys are normal in size and without hydronephrosis. The kidneys enhance symmetrically. A punctate nonobstructing calculus is again seen in the upper pole of the left kidney on image #169 Abdominal vasculature: The abdominal aorta is normal in course and caliber. Bowel: The small bowel and colon are normal in course and caliber. There is mild colonic fecal retention. The appendix is well-visualized and normal. Peritoneum: There is no intraperitoneal free air or abdominal ascites. There is a fat-containing umbilical hernia. Lymphadenopathy: None. Pelvic viscera: The bladder, uterus, and adnexa are normal as visualized. There are small ovarian follicles. Numerous calcified phleboliths are noted in the pelvis. Skeletal structures: No lytic or blastic lesions are seen. A posterior disc osteophyte complex is noted at L4-L5. IMPRESSION: 1. There are no acute infectious or inflammatory findings in the abdomen or pelvis. 2. Hepatomegaly and hepatic steatosis with evidence of cirrhosis. 3. Mild splenomegaly. 4. Additional findings as above. Electronically signed by: Rickey Candelaria M.D. 07/02/2016 8:20 PM Dictated Date/Time: 07/02/2016 8:10 PM
[2016-07-02] MEDS ORDERED: ONDANSETRON HOME PACK 4MG OD TAB PO ONE (20:45)
[2016-07-02] MEDS ORDERED: RANI150T3 PO (20:54)
[2016-07-02 21:02] VITALS: BP 149/98; PULSE 87; O2SAT 95
[2016-07-02] MEDS ORDERED: FURO40TA3 PO (21:27)
[2016-11-12] MEDS ORDERED: ALBI1INJ2 INJ (20:34)
[2016-11-12] MEDS ORDERED: LORA-741 PO (20:34)
[2016-11-12] MEDS ORDERED: MILK250C PO (20:34)
[2016-11-12] MEDS ORDERED: VITA400C3 PO (20:34)
[2016-11-13] MEDS ORDERED: CYCL10TA7 PO (15:43)
[2016-11-13] MEDS ORDERED: QUET1TAB13 PO (15:43)
[2016-12-04] MEDS ORDERED: POTA10CA28 PO (08:23)
== END 2016-07-02 21:00 | disposition home or self-care (01) ==
LOC: C.EDB 17:38 → C.EDC 21:00
DX: R10.9 Unspecified abdominal pain (principal); F31.9 Bipolar disorder, unspecified; E11.9 Type 2 diabetes mellitus without complications; I10 Essential (primary) hypertension; K58.9 Irritable bowel syndrome, unspecified; Z98.51 Tubal ligation status; Z79.4 Long term (current) use of insulin

== ENCOUNTER → 2016-07-16 | Outpatient (CLI) | payer OTHER ==
[~2016-07-16] MED LIST changes: +ALBI1INJ2 INJ; +ATEN100T PO; -CEFD300C2 PO; +CEPH500C PO; +CYCL10TA7 PO; +FURO40TA3 PO; -GABA-112 PO; +GADAVIST IV PRN; +GLGKIT INJ; +IBUP-1050 PO; +INSDGIPEN SC; -INSPMPNVLG SQ; +LISI-461 PO; +LORA-741 PO; +LORA10TA5 PO; +LPT40 PO; +MAGN400T7 PO; +MECL1TAB42 PO; -MELO7.5T5 PO; +METF-384 PO; +MILK250C PO; +NRN100 PO; +NVLG INJ; +OMEP20CA9 PO; +ONDA4TAB9 PO; -OXYC-57 PO; +OXYC1TAB3 PO; +POLY335025 PO; +POTA10CA28 PO; -PRLSR20 PO; +QUET1TAB13 PO; +QUET400T PO; +QUET5TAB PO; +RANI150T3 PO; -SRQ400 PO; -SULF800T23 PO; -TRAM-10 PO; +ULT50 PO; +VITA400C3 PO
--- NOTE | 2016-07-16 12:09 | DIAGNOSTIC IMAGING REPORT ---
MRI OF THE BRAIN WITHOUT AND WITH IV CONTRAST CLINICAL HISTORY: MIGRAINE headache COMPARISON STUDY: 10/21/2013 TECHNIQUE: Utilizing a 1.5 Maggie magnet and dedicated coil, multiplanar, multiecho imaging of the brain was performed pre and postcontrast administration. IV administration of 8 mL of Gadavist contrast was uneventful. FINDINGS: Diffusion-weighted images are unremarkable. Signal characteristics of the cerebellar as well as cerebral hemispheres are within normal limits. There is a described foci of increased signal within the deep white matter regions are no longer present. No evidence for abnormal postcontrast enhancement. IMPRESSION: Normal study. Electronically signed by: Clarence Taylor M.D. 07/16/2016 12:07 PM Dictated Date/Time: 07/16/2016 12:04 PM
== END | disposition home or self-care (01) ==
LOC: C.OPENMRI 10:40
PROVIDERS: ATTEND Psychiatry & Neurology Neurology
DX: G43.909 Migraine, unspecified, not intractable, without status migrainosus (principal)

== ENCOUNTER 2016-12-04 15:20 | Emergency (ER) | payer OTHER ==
[~2016-12-04] VITALS: Ht 162.6 cm; Wt 103.6 kg
[~2016-12-04 15:20] MED LIST changes: -ATEN100T PO; -CEPH500C PO; -GADAVIST IV PRN; -GLGKIT INJ; -IBUP-1050 PO; -INSDGIPEN SC; -LISI-461 PO; -LORA10TA5 PO; -LPT40 PO; -MAGN400T6 PO; -MAGN400T7 PO; -MECL1TAB42 PO; -METF-384 PO; -NRN100 PO; -NVLG INJ; -OMEP20CA9 PO; -ONDA4TAB9 PO; -OXYC1TAB3 PO; -POLY335025 PO; -QUET400T PO; -QUET5TAB PO; -ULT50 PO
[2016-12-04 15:22] VITALS: TEMP 36.9; Ht 162.6 cm; Wt 103.6 kg
[2016-12-04] MEDS ORDERED: HYDROmorphone INJ 1 MG/ML SYR IV STA ×2 (15:42→18:24)
[2016-12-04] MEDS ORDERED: ONDANSETRON INJ 2 MG/ML 2 ML VIAL IV STA ×2 (15:42→18:43)
[2016-12-04] MEDS ORDERED: OPTIRAY 320 IV PRN (16:00)
[2016-12-04] MEDS ORDERED: QUET400T PO (16:09)
--- NOTE | 2016-12-04 16:20 | DIAGNOSTIC IMAGING REPORT ---
CHEST ONE VIEW PORTABLE HISTORY: Generalized abdominal pain. COMPARISON: Chest 11/12/2016. FINDINGS: The lungs are clear. The heart remains top normal in size. No pleural effusions. No pneumothorax. Left subclavian Port-A-Cath terminates in the SVC. IMPRESSION: No acute process. Electronically signed by: Rudy Borden M.D. 12/04/2016 4:18 PM Dictated Date/Time: 12/04/2016 4:17 PM
[2016-12-04 16:55] LABS: BASO % 0.5 %; BASO ABS # 0.05 K/uL (0-0.2); COMPLETE YES; EOS % 7.1 %; HEMATOCRIT 34.7 % (37-47); IG% 0.4 %; LYMPH % 24.8 %; MEAN CELL VOLUME 86.8 fL (80-100); MEAN CORPUSCULAR HEMOGLOBIN 28.5 pg (25-34); MEAN CORPUSCULAR HGB CONC 32.9 g/dl (32-36); MEAN PLATELET VOLUME 9.8 fL (7.4-10.4); MONO % 6.2 %; PLATELET COUNT 135 K/uL (130-400); WHITE BLOOD COUNT 9.29 K/uL (4.8-10.8)
[2016-12-04 17:03] LABS: URINE APPEARANCE CLOUDY (CLEAR); URINE BILIRUBIN NEG (NEG); URINE COLOR YELLOW; URINE EPITHELIAL CELL AUTO >30 /lpf (0-5); URINE NITRITE NEG (NEG); URINE PH 6.5 (4.5-7.5); URINE SPECIFIC GRAVITY 1.024 (1.000-1.030); UROBILINOGEN NEG (NEG); ZZUR CULT IF INDIC CLEAN CATCH YES
[2016-12-04] MEDS ORDERED: METF-384 PO (17:03)
[2016-12-04 17:05] LABS: MANUAL MICROSCOPIC REQUIRED? NO; REVIEW REQ? NO
[2016-12-04] MEDS ORDERED: POLY335025 PO (17:12)
[2016-12-04] MEDS ORDERED: GLGKIT INJ (17:13)
[2016-12-04 17:18] LABS: ALT/SGPT 21 U/L (12-78); BLOOD UREA NITROGEN 8 mg/dl (7-18); BUN/CREATININE RATIO 10.1 (10-20); CARBON DIOXIDE 27 mmol/L (21-32); CHLORIDE 105 mmol/L (98-107); CREATININE 0.79 mg/dl (0.60-1.20); GLUCOSE 114 mg/dl (70-99); POTASSIUM 3.9 mmol/L (3.5-5.1); SODIUM 141 mmol/L (136-145)
[2016-12-04 17:21] LABS: ALKALINE PHOSPHATASE 121 U/L (45-117); AST/SGOT 37 U/L (15-37)
--- NOTE | 2016-12-04 17:28 | EMERGENCY ROOM VISIT NOTE ---
History First contact with patient: 15:28 Chief Complaint: EDEMA TO EXTREMITY Stated Complaint: EDEMA, PAIN History of Present Illness The patient is a 46 year old female who presents to the Emergency Room with complaints of abdominal pain, bloating and swelling of her legs. The patient states that for the past 6 days, she has had intermittent swelling of her legs and ankles. She does occasionally have swelling of her lower extremities and takes Lasix as needed. She states that the legs were swollen up to the knees and she took Lasix and has been elevating the legs with relief of the swelling. She states that yesterday, she developed abdominal pain and bloating. She does have a history of cirrhosis and chronic right upper quadrant pain, but states this pain is different. The pain is located across the center of her abdomen. She states her LFTs have been stable. She sees a gastrologist in [place] every 6 months. She also has routine MRIs for a lesion on her liver. She called her primary care provider who sent her here. She reports some nausea with no vomiting. She denies urinary symptoms, changes in bowel movements, chest pain or shortness of breath. She rates her discomfort a 7/10. Review of Systems A complete 10 point review of systems was reviewed with the patient with pertinent positives and negatives as per history of present illness. All else were negative. Past Medical/Surgical History Medical Problems: (1) [id number] (2) Abdominal pain (3) Abdominal pain (4) Abdominal pain (5) Abdominal pain (6) Abdominal pain (7) Back pain (8) Bipolar Disorder, Unspecified (9) Bronchitis (10) Change in mental status (11) Cirrhosis of liver (12) Diab Estelita Wo Compl, Type Ii Or Unspec Type, Not Uncntrld (13) Dizziness (14) Dysmetabolic Syndrome X (15) Dysthymic Disorder (16) Head ache (17) Headache (18) Hyperglycemia (19) Hyperglycemia (20) Hypertension Nos (21) Hypokalemia (22) Irritable Bowel Syndrome (23) Migraine (24) Migraine (25) Migraine Unspecified W/O Intractable Migraine (26) MENDEZ (27) Palpitations (28) Pancreatitis (29) Pneumonia (30) Reflux Esophagitis (31) right kidney fibrosis (32) Slurred speech (33) Syncopal episodes (34) Syncope (35) Vaginal spotting (36) Weakness Surgical Problems: (1) Port catheter in place (2) Tubal Ligation Status Family History Diabetes mellitus Hypertension Kidney disease Social History Smoking Status: Never Smoker Alcohol Use: none Drug Use: none Marital Status: Housing Status: lives with family Occupation Status: unemployed Current/Historical Medications Scheduled Albiglutide (Tanzeum), 50 MG INJ WK Atenolol (Tenormin), 100 MG PO BID Atorvastatin (Atorvastatin Calcium), 40 MG PO HS Cephalexin Monohydrate (Keflex), 500 MG PO TID Cyclobenzaprine HCl (Cyclobenzaprine HCl), 5 MG PO HS Gabapentin (Gabapentin), 100 MG PO TID Insulin Aspart (Novolog), 1 DOSE INJ UD Insulin Glargine (Lantus Solostar), 50 UNITS SC DAILY Lisinopril (Lisinopril), 10 MG PO HS Magnesium Oxide (Mag-Ox), 400 MG PO DAILY Metformin Hcl (Glucophage), 1,000 MG PO BIDM Omeprazole (Prilosec), 20 MG PO BID Potassium Chloride (Micro-K Ext Rel), 10 MEQ PO BID Quetiapine Fumarate (Seroquel), 50 MG PO HS Quetiapine Fumarate Xr (Seroquel Xr Tab), 400 MG PO DAILY Tramadol HCl (Tramadol HCl), 1 TAB PO BID Trazodone Hcl (Trazodone), 200 MG PO HS Scheduled PRN Furosemide (Lasix), 40 MG PO DAILY PRN for EDEMA Glucagon (Glucagon Emergency Kit), 1 MG INJ UD PRN for HYPOGLYCEMIA PROTOCOL Ibuprofen (Advil), 600 MG PO Q6H PRN for Pain Loratadine (Claritin), 10 MG PO DAILY PRN for Allergy Symptoms Meclizine Hcl (Meclizine Hcl), 1 TAB PO TID PRN for Dizziness or Vertigo Ondansetron (Ondansetron HCl), 4 MG PO Q6H PRN for Nausea Polyethylene Glycol 3350 (Miralax), 1 TBS PO HS PRN for Severe constipation Allergies Coded Allergies: Naproxen (Verified Allergy, Unknown, BLEEDING, 12/04/16) Physical Exam Vital Signs Date Time Temp Pulse Resp B/P (MAP) Pulse Ox O2 Delivery O2 Flow Rate FiO2 12/04/16 18:42 97 16 148/91 100 12/04/16 17:19 84 14 136/87 98 12/04/16 15:22 36.9 110 18 148/92 95 Room Air Physical Exam VITALS: Vitals are noted on the nurse's note and reviewed by myself. Vital signs stable. GENERAL: This is a 46-year-old female, in no acute distress, nondiaphoretic, well-developed well-nourished. SKIN: Capillary reflex less than 2 seconds. HEENT: Normocephalic. PERRLA. EOMI. Nares patent. Mucous membranes moist. Neck is supple without nuchal rigidity. HEART: Regular rate and rhythm without murmurs gallops or rubs. LUNGS: Clear to auscultation bilaterally without wheezes, rales or rhonchi. ABDOMEN: Positive bowel sounds x 4. Abdomen is moderately distended. There is tenderness to palpation throughout. No guarding or rebound tenderness. EXTREMITIES: No pitting edema noted to the lower extremities. NEURO: Patient was alert and oriented to person place and time. Medical Decision & Procedures ER Provider Diagnostic Interpretation: CHEST ONE VIEW PORTABLE FINDINGS: The lungs are clear. The heart remains top normal in size. No pleural effusions. No pneumothorax. Left subclavian Port-A-Cath terminates in the SVC. IMPRESSION: No acute process. CT OF THE ABDOMEN AND PELVIS WITH CONTRAST FINDINGS: Mild hepatosplenomegaly is unchanged. There is fatty infiltration liver. Nodularity of the liver surface is indicative of cirrhosis. No hepatic lesions are identified. Sensitivity for detection of hypervascular lesions is diminished on this portal venous study. The spleen, adrenal glands and kidneys are unremarkable with exception of a punctate left renal calculus. Hyperdensities within the right collecting system could reflect excreted contrast or tiny calculi. There are no ureteral calculi. There is no hydronephrosis. There is no evidence for a bowel obstruction. The appendix is normal. A 3 cm hypodense left ovarian lesion could reflect a cyst or dominant follicle. There is no suspicious skeletal lesions. Caliber and wall thickness of small and large bowel are normal. A small fat-containing umbilical hernia is noted. IMPRESSION: 1. No acute process within the abdomen or pelvis. 2. Cirrhosis with stable mild hepatosplenomegaly. 3. 3 cm left ovarian lesion which could reflect a cyst or dominant follicle. A follow-up pelvic ultrasound in 6 weeks to ensure resolution is recommended. Laboratory Results 12/04/16 16:20 Red Blood Count 4.00, Mean Corpuscular Volume 86.8, Mean Corpuscular Hemoglobin 28.5, Mean Corpuscular Hemoglobin Concent 32.9, Mean Platelet Volume 9.8, Neutrophils (%) (Auto) 61.0, Lymphocytes (%) (Auto) 24.8, Monocytes (%) (Auto) 6.2, Eosinophils (%) (Auto) 7.1, Basophils (%) (Auto) 0.5, Neutrophils # (Auto) 5.66, Lymphocytes # (Auto) 2.30, Monocytes # (Auto) 0.58, Eosinophils # (Auto) 0.66, Basophils # (Auto) 0.05 12/04/16 16:20 Test 12/04/16 00:00 12/04/16 16:20 Urine Color YELLOW Urine Appearance CLOUDY (CLEAR) Urine pH 6.5 (4.5-7.5) Urine Specific Beaver 1.024 (1.000-1.030) Urine Protein NEG (NEG) Urine Glucose (UA) NEG (NEG) Urine Ketones NEG (NEG) Urine Occult Blood NEG (NEG) Urine Nitrite NEG (NEG) Urine Bilirubin NEG (NEG) Urine Urobilinogen NEG (NEG) Urine Leukocyte Esterase MODERATE (NEG) Urine WBC (Auto) 10-30 /hpf (0-5) Urine RBC (Auto) 0-4 /hpf (0-4) Urine Hyaline Casts (Auto) 1-5 /lpf (0-5) Urine Epithelial Cells (Auto) >30 /lpf (0-5) Urine Bacteria (Auto) 2+ (NEG) Urine Test NEG (NEG) White Blood Count 9.29 K/uL (4.8-10.8) Red Blood Count 4.00 M/uL (4.2-5.4) Hemoglobin 11.4 g/dL (12.0-16.0) Hematocrit 34.7 % (37-47) Mean Corpuscular Volume 86.8 fL (80-100) Mean Corpuscular Hemoglobin 28.5 pg (25-34) Mean Corpuscular Hemoglobin Concent 32.9 g/dl (32-36) Platelet Count 135 K/uL (130-400) Mean Platelet Volume 9.8 fL (7.4-10.4) Neutrophils (%) (Auto) 61.0 % Lymphocytes (%) (Auto) 24.8 % Monocytes (%) (Auto) 6.2 % Eosinophils (%) (Auto) 7.1 % Basophils (%) (Auto) 0.5 % Neutrophils # (Auto) 5.66 K/uL (1.4-6.5) Lymphocytes # (Auto) 2.30 K/uL (1.2-3.4) Monocytes # (Auto) 0.58 K/uL (0.11-0.59) Eosinophils # (Auto) 0.66 K/uL (0-0.5) Basophils # (Auto) 0.05 K/uL (0-0.2) RDW Standard Deviation 45.5 fL (36.4-46.3) RDW Coefficient of Variation 14.4 % (11.5-14.5) Immature Granulocyte % (Auto) 0.4 % Immature Granulocyte # (Auto) 0.04 K/uL (0.00-0.02) Anion Gap 9.0 mmol/L (3-11) Est Creatinine Clear Calc Drug Dose 106.6 ml/min Estimated GFR () 105.5 Estimated GFR (Non- 91.0 BUN/Creatinine Ratio 10.1 (10-20) Calcium Level 9.0 mg/dl (8.5-10.1) Total Bilirubin 0.3 mg/dl (0.2-1) Direct Bilirubin < 0.1 mg/dl (0-0.2) Aspartate Amino Transf (AST/SGOT) 37 U/L (15-37) Alanine Aminotransferase (ALT/SGPT) 21 U/L (12-78) Alkaline Phosphatase 121 U/L (45-117) Total Protein 7.0 gm/dl (6.4-8.2) Albumin 3.2 gm/dl (3.4-5.0) Lipase 173 U/L (73-393) Medications Administered Medications (Trade) Dose Ordered Sig/Farzad Route Start Time Stop Time Status Last Admin Dose Admin Hydromorphone HCl (Dilaudid Inj) 1 mg NOW STAT IV 12/04/16 15:42 12/04/16 15:46 DC 12/04/16 16:37 1 MG Ondansetron HCl (Zofran Inj) 4 mg NOW STAT IV 12/04/16 15:42 12/04/16 15:46 DC 12/04/16 16:37 4 MG Hydromorphone HCl (Dilaudid Inj) 1 mg NOW STAT IV 12/04/16 18:24 12/04/16 18:25 DC 12/04/16 18:42 1 MG Ondansetron HCl (Zofran Inj) 4 mg NOW STAT IV 12/04/16 18:43 12/04/16 18:45 DC 12/04/16 18:52 4 MG Heparin Sodium (Porcine) (Heparin 100 Unit/ml 5ml Flush) 5 ml STK-MED ONCE .ROUTE 12/04/16 18:54 12/04/16 18:55 DC 12/04/16 18:57 5 ML ED Course The patient was evaluated as above. Labs were drawn and IV access was obtained. Patient was medicated with 1 mg Dilaudid IV and [address] scan of the abdomen and pelvis was performed and read by radiology as above. Patient was reevaluated and findings were discussed. The patient did have continued pain and was given additional doses of Dilaudid and Zofran. Discharge instructions were reviewed with the patient. The patient verbalized understanding of my assessment and treatment plan and was discharged home in good condition. Medical Decision Differential diagnosis includes ascites, cirrhosis, cholecystitis, pancreatitis , bowel obstruction, colitis, urinary tract infection, pyelonephritis, among others. The patient is a 46-year-old female who presents today complaining of with abdominal pain and bloating. Labs revealed no leukocytosis or concerning anemia. LFTs are mildly elevated and stable for the patient. Urinalysis was suggestive of possible infection. The patient will be placed on antibiotics pending the culture results. A CT scan shows no acute findings within the abdomen. I am unsure the cause of the patient's symptoms. She may have a UTI. She will need to follow-up with both her primary care provider and her direct care counselor for further evaluation of her symptoms. The patient's case was reviewed with Dr. Gaspar, ED attending physician, who agreed with my assessment and treatment plan. Based on the patient's presentation and work up, I feel the patient is stable for outpatient treatment. The patient was educated to return to the emergency department for any worsening of their current condition or new/concerning symptoms. She will follow up with her PCP and GI specialist. Medication reconciliation: I attest that I have personally reviewed the patient 's current medication list. Blood Pressure Screening: Patient was found to have a slightly elevated blood pressure due to circumstances. I do not believe that the patient requires hypertension monitoring. Impression Primary Impression: Abdominal pain Departure Information Dispostion Home / Self-Care Condition GOOD Prescriptions Cephalexin Monohydrate (Keflex) 500 Mg Cap 500 MG PO TID for 7 Days, #21 CAP Prov: Elina Young ., MARLON 12/04/16 Referrals Scott Weldon M.D. (PCP) Patient Instructions My [facility] Additional Instructions You were prescribed Keflex to be taken as prescribed. This is an antibiotic. All antibiotics have the potential to cause diarrhea. Stop this medication and contact a medical provider if you were to develop any significant adverse side effects including: wheezing, shortness of breath, passing out, vomiting, or a diffuse rash. Always take antibiotics as directed and COMPLETE the ENTIRE course regardless of the improvement of your symptoms. Call your primary care provider to schedule a follow-up appointment within 48 hours. Call your direct care counselor to schedule follow-up. Continue to elevate the legs and take Lasix as needed for swelling. Return to the emergency room with any worsening or new/concerning symptoms. Problem Qualifiers Primary Impression: Abdominal pain Abdominal location: generalized Qualified Codes: R10.84 - Generalized abdominal pain
--- NOTE | 2016-12-04 18:11 | DIAGNOSTIC IMAGING REPORT ---
CT OF THE ABDOMEN AND PELVIS WITH CONTRAST CLINICAL HISTORY: Abdominal pain. Cirrhosis. COMPARISON STUDY: CT of the abdomen and pelvis July 02, 2016. TECHNIQUE: Following IV administration of 94 mL of Optiray-320, axial images of the abdomen and pelvis were obtained from the lung bases to the proximal femurs. Images were reviewed in the axial, sagittal, and coronal planes. IV contrast was administered without complication. CT DOSE: 1253.80 mGy.cm FINDINGS: Mild hepatosplenomegaly is unchanged. There is fatty infiltration liver. Nodularity of the liver surface is indicative of cirrhosis. No hepatic lesions are identified. Sensitivity for detection of hypervascular lesions is diminished on this portal venous study. The spleen, adrenal glands and kidneys are unremarkable with exception of a punctate left renal calculus. Hyperdensities within the right collecting system could reflect excreted contrast or tiny calculi. There are no ureteral calculi. There is no hydronephrosis. There is no evidence for a bowel obstruction. The appendix is normal. A 3 cm hypodense left ovarian lesion could reflect a cyst or dominant follicle. There is no suspicious skeletal lesions. Caliber and wall thickness of small and large bowel are normal. A small fat-containing umbilical hernia is noted. IMPRESSION: 1. No acute process within the abdomen or pelvis. 2. Cirrhosis with stable mild hepatosplenomegaly. 3. 3 cm left ovarian lesion which could reflect a cyst or dominant follicle. A follow-up pelvic ultrasound in 6 weeks to ensure resolution is recommended. Electronically signed by: Pieter Garcia M.D. 12/04/2016 6:10 PM Dictated Date/Time: 12/04/2016 6:02 PM
[2016-12-04 18:42] VITALS: BP 148/91; PULSE 97; O2SAT 100
[2016-12-04] MEDS ORDERED: LISI-461 PO (18:43)
[2016-12-04] MEDS ORDERED: LPT40 PO (18:43)
[2016-12-04] MEDS ORDERED: ATEN100T PO (18:43)
[2016-12-04] MEDS ORDERED: QUET5TAB PO (18:43)
[2016-12-04] MEDS ORDERED: CEPH500C PO (18:46)
[2016-12-04] MEDS ORDERED: ULT50 PO (19:01)
[2016-12-04] MEDS ORDERED: OMEP20CA9 PO (19:01)
[2016-12-04] MEDS ORDERED: NRN100 PO (19:01)
[2016-12-04] MEDS ORDERED: NVLG INJ (19:03)
[2016-12-04] MEDS ORDERED: IBUP-1050 PO (19:23)
[2016-12-04] MEDS ORDERED: MECL1TAB42 PO (20:34)
[2016-12-04] MEDS ORDERED: INSDGIPEN SC (20:34)
[2016-12-04] MEDS ORDERED: MAGN400T6 PO (20:34)
[2016-12-04] MEDS ORDERED: LORA10TA5 PO (20:49)
[2016-12-04] MEDS ORDERED: ONDA4TAB9 PO (20:54)
== END 2016-12-04 19:00 | disposition home or self-care (01) ==
LOC: C.EDB 15:21
DX: R10.84 Generalized abdominal pain (principal); F31.9 Bipolar disorder, unspecified; E11.9 Type 2 diabetes mellitus without complications; F34.1 Dysthymic disorder; R73.9 Hyperglycemia, unspecified; I10 Essential (primary) hypertension; E87.6 Hypokalemia; Z83.3 Family history of diabetes mellitus; Z82.49 Family history of ischemic heart disease and other diseases of the circulatory system; Z79.4 Long term (current) use of insulin; K21.9 Gastro-esophageal reflux disease without esophagitis

== ENCOUNTER 2017-01-28 12:44 | Emergency (ER) | payer OTHER ==
[~2017-01-28] VITALS: Ht 162.6 cm; Wt 104.0 kg
[~2017-01-28 12:44] MED LIST changes: +ATEN100T PO; +GLGKIT INJ; +IBUP-1050 PO; +INSDGIPEN SC; +LISI-461 PO; -LORA-741 PO; +LORA10TA5 PO; +LPT40 PO; +MAGN400T6 PO; +MECL1TAB42 PO; +METF-384 PO; -MILK250C PO; +NRN100 PO; +NVLG INJ; +OMEP20CA9 PO; +ONDA4TAB9 PO; +POLY335025 PO; -QUET1TAB13 PO; +QUET400T PO; +QUET5TAB PO; -RANI150T3 PO; +ULT50 PO; -VITA400C3 PO
[2017-01-28 12:50] VITALS: TEMP 36.8; Ht 162.6 cm; Wt 104.0 kg
[2017-01-28] MEDS ORDERED: ONDANSETRON INJ 2 MG/ML 2 ML VIAL IV STA (13:02)
[2017-01-28] MEDS ORDERED: MoRPHine SULFATE 4 MG/ML 1 ML CARP\\VIAL IV STA (13:02)
--- NOTE | 2017-01-28 13:12 | EMERGENCY ROOM VISIT NOTE ---
History First contact with patient: 12:52 Chief Complaint: ABDOMINAL PAIN Stated Complaint: PAIN AND FLUID IN ABD AREA History of Present Illness The patient is a 46 year old female who presents to the Emergency Room via private vehicle with complaints of "pain and fluid in abdominal area". The patient states that she has a history of hypertension, as well as nonalcoholic liver cirrhosis. She follows in [place] with serial MRIs performed every 6 months to evaluate her liver. She states that over the past week she has been experiencing lower leg edema, as well as a sensation of abdominal distention. She felt as if she had a fever last week, found her temperature to be 101F orally. She notes pain in the abdomen radiating to the back. She is also gained 7 pounds over the past week. She points to the left upper and right upper quadrant as a location of pain that she currently rates as an 8/10. She also notes an insulin pump on the left side of the abdomen. Her sugars today have been in the 260 region. Her last A1c was 7.2. Today her abdominal pain acutely worsened, prompting her visit here to the emergency department. She follows with Dr. Morocho, who performed injections into her spine today for chronic low back pain. She notes that she does take Lasix for fluid retention, but did not take any today. She also has an indwelling port which she's had for 3 years secondary to poor intravenous access. Associated with the symptoms she has diarrhea and nausea. There is also associated shortness of breath. She denies any vomiting, urinary symptoms, chest pain or vaginal discharge. Review of Systems A complete 10-point Review of Systems was discussed with the patient, with pertinent positives and negatives listed in the History of Present Illness. All remaining Review of Systems questions can be considered negative unless otherwise specified. Past Medical/Surgical History Medical Problems: (1) [id number] (2) Abdominal pain (3) Abdominal pain (4) Abdominal pain (5) Abdominal pain (6) Abdominal pain (7) Back pain (8) Bipolar Disorder, Unspecified (9) Bronchitis (10) Change in mental status (11) Cirrhosis of liver (12) Diab Estelita Wo Compl, Type Ii Or Unspec Type, Not Uncntrld (13) Dizziness (14) Dysmetabolic Syndrome X (15) Dysthymic Disorder (16) Head ache (17) Headache (18) Hyperglycemia (19) Hyperglycemia (20) Hypertension Nos (21) Hypokalemia (22) Irritable Bowel Syndrome (23) Migraine (24) Migraine (25) Migraine Unspecified W/O Intractable Migraine (26) MENDEZ (27) Palpitations (28) Pancreatitis (29) Pneumonia (30) Reflux Esophagitis (31) right kidney fibrosis (32) Slurred speech (33) Syncopal episodes (34) Syncope (35) Vaginal spotting (36) Weakness Surgical Problems: (1) Port catheter in place (2) Tubal Ligation Status Family History Diabetes mellitus Hypertension Kidney disease Social History Smoking Status: Never Smoker Alcohol Use: none Drug Use: none Marital Status: Housing Status: lives with family Occupation Status: unemployed Current/Historical Medications Scheduled Albiglutide (Tanzeum), 50 MG INJ WK Atenolol (Tenormin), 100 MG PO BID Atorvastatin (Atorvastatin Calcium), 40 MG PO HS Cyclobenzaprine HCl (Cyclobenzaprine HCl), 5 MG PO HS Gabapentin (Gabapentin), 100 MG PO TID Insulin Aspart (Novolog), 1 DOSE INJ UD Insulin Glargine (Lantus Solostar), 50 UNITS SC DAILY Lisinopril (Lisinopril), 10 MG PO HS Magnesium Oxide (Mag-Ox), 400 MG PO DAILY Metformin Hcl (Glucophage), 1,000 MG PO BIDM Omeprazole (Prilosec), 20 MG PO BID Potassium Chloride (Micro-K Ext Rel), 10 MEQ PO BID Quetiapine Fumarate (Seroquel), 50 MG PO HS Quetiapine Fumarate Xr (Seroquel Xr Tab), 400 MG PO DAILY Tramadol HCl (Tramadol HCl), 1 TAB PO BID Trazodone Hcl (Trazodone), 200 MG PO HS Scheduled PRN Furosemide (Lasix), 40 MG PO DAILY PRN for EDEMA Glucagon (Glucagon Emergency Kit), 1 MG INJ UD PRN for HYPOGLYCEMIA PROTOCOL Ibuprofen (Advil), 600 MG PO Q6H PRN for Pain Loratadine (Claritin), 10 MG PO DAILY PRN for Allergy Symptoms Meclizine Hcl (Meclizine Hcl), 1 TAB PO TID PRN for Dizziness or Vertigo Ondansetron (Ondansetron HCl), 4 MG PO Q6H PRN for Nausea Oxycodone Ir (Roxicodone Ir), 1-2 TAB PO Q4H PRN for Pain Polyethylene Glycol 3350 (Miralax), 1 TBS PO HS PRN for Severe constipation Allergies Coded Allergies: Naproxen (Verified Allergy, Unknown, BLEEDING, 01/28/17) Physical Exam Vital Signs Date Time Temp Pulse Resp B/P (MAP) Pulse Ox O2 Delivery O2 Flow Rate FiO2 01/28/17 16:12 85 18 149/99 95 01/28/17 15:03 88 16 148/85 97 Room Air 01/28/17 13:39 87 01/28/17 13:35 Room Air 01/28/17 12:50 36.8 93 20 161/101 96 Room Air Physical Exam VITAL SIGNS - Vital signs and nursing notes were reviewed. Afebrile, hypertensive at 161/101, non-tachycardic and is saturating on room air 96%. GENERAL -46-year-old female appearing her stated age who is in no acute distress. Communicates well with provider and answers questions appropriately. SKIN - Without rashes. No petechial rashes. HEAD - NC/AT. EYES -Sclera anicteric. Palpebral conjunctiva pink and moist with no injection noted. EARS - No deformities of external structures noted on gross examination bilaterally. NOSE - Midline and without cyanosis. No epistaxis or purulent drainage noted. MOUTH/OROPHARYNX - Without perioral cyanosis. Buccal mucosa pink and moist and without leukoplakia. Tongue midline with equal elevation of palate bilaterally. No tonsillar hypertrophy, erythema, or exudates noted. Fair dentition noted. NECK - Neck with FROM. Supple to palpation. No lymphadenopathy noted. No nuchal rigidity. LUNGS - Chest wall symmetric without accessory muscle use, intercostals retractions, or central cyanosis. Normal vesicular breath sounds CTA B/L. No wheezes, rales, or rhonchi appreciated. CARDIAC - RRR with S1/S2. No murmur, rubs, or gallops appreciated. ABDOMEN - Abdominal contour without pulsations or visible masses. BS normoactive all four quadrants. The upper quadrants are distended, tense to palpation. The abdomen is not rigid. There is tenderness diffusely, but noted to be worsening of quadrants. EXTREMITIES - No clubbing or peripheral cyanosis. Edema noted to the lower extremity. +5/5 strength noted in UE/LE bilaterally. NEUROLOGIC - Cranial nerves II through XII grossly intact. Sensory intact to light touch throughout. PSYCH - Pt is very pleasant and interacts well with examiner. Medical Decision & Procedures ER Provider Diagnostic Interpretation: CHEST AND ABDOMEN 2 VIEWS HISTORY: Dyspnea, weight gain with fluid retention COMPARISON: Chest x-ray and abdomen and pelvis CT 12/04/2016. FINDINGS: The lungs are clear. The heart remains top normal in size. No pleural effusions. No pneumothorax. Left subclavian Port-A-Cath terminates in the SVC. No pneumoperitoneum. No pneumatosis. No renal or ureteral calculi. Calcifications in the deep pelvis likely represent phleboliths. A 1.3 cm oval-shaped density overlying the left sacroiliac joint likely represents ingested medication. The bowel gas pattern is unremarkable. No dilated loops of bowel to suggest an obstruction. IMPRESSION: No acute cardiopulmonary process. No evidence for bowel obstruction. Electronically signed by: Rudy Borden M.D. 01/28/2017 2:13 PM Dictated Date/Time: 01/28/2017 2:11 PM ABDOMINAL ULTRASOUND, RIGHT UPPER QUADRANT HISTORY: Right Upper quadrant abdominal pain. COMPARISON: Abdomen and pelvis CT 12/04/2016. FINDINGS: Pancreas: The pancreatic head and tail are obscured by overlying bowel gas. The remaining portions of the pancreas are within normal limits. Liver: Coarse echotexture. The liver is enlarged measuring 21 cm in length. No hepatic masses. Gallbladder: Borderline gallbladder wall thickening at 3 mm. No gallstones. CBD: 5 mm. Right kidney: No hydronephrosis. Spleen: Mildly enlarged measuring 13.5 cm in length. IMPRESSION: 1. Borderline gallbladder wall thickening. No gallstones. 2. Hepatosplenomegaly is again noted. 3. The pancreas was not well visualized. Electronically signed by: Rudy Borden M.D. 01/28/2017 2:23 PM Dictated Date/Time: 01/28/2017 2:21 PM Laboratory Results 01/28/17 13:17 Red Blood Count 4.17, Mean Corpuscular Volume 86.1, Mean Corpuscular Hemoglobin 28.1, Mean Corpuscular Hemoglobin Concent 32.6, Mean Platelet Volume 9.3, Neutrophils (%) (Auto) 59.5, Lymphocytes (%) (Auto) 28.9, Monocytes (%) (Auto) 7.1, Eosinophils (%) (Auto) 3.5, Basophils (%) (Auto) 0.6, Neutrophils # (Auto) 4.87, Lymphocytes # (Auto) 2.37, Monocytes # (Auto) 0.58, Eosinophils # (Auto) 0.29, Basophils # (Auto) 0.05 01/28/17 13:17 Test 01/28/17 13:17 01/28/17 13:20 White Blood Count 8.19 K/uL (4.8-10.8) Red Blood Count 4.17 M/uL (4.2-5.4) Hemoglobin 11.7 g/dL (12.0-16.0) Hematocrit 35.9 % (37-47) Mean Corpuscular Volume 86.1 fL (80-100) Mean Corpuscular Hemoglobin 28.1 pg (25-34) Mean Corpuscular Hemoglobin Concent 32.6 g/dl (32-36) Platelet Count 156 K/uL (130-400) Mean Platelet Volume 9.3 fL (7.4-10.4) Neutrophils (%) (Auto) 59.5 % Lymphocytes (%) (Auto) 28.9 % Monocytes (%) (Auto) 7.1 % Eosinophils (%) (Auto) 3.5 % Basophils (%) (Auto) 0.6 % Neutrophils # (Auto) 4.87 K/uL (1.4-6.5) Lymphocytes # (Auto) 2.37 K/uL (1.2-3.4) Monocytes # (Auto) 0.58 K/uL (0.11-0.59) Eosinophils # (Auto) 0.29 K/uL (0-0.5) Basophils # (Auto) 0.05 K/uL (0-0.2) RDW Standard Deviation 42.8 fL (36.4-46.3) RDW Coefficient of Variation 13.6 % (11.5-14.5) Immature Granulocyte % (Auto) 0.4 % Immature Granulocyte # (Auto) 0.03 K/uL (0.00-0.02) Prothrombin Time 11.2 SECONDS (9.0-12.0) Prothromb Time International Ratio 1.0 (0.9-1.1) Activated Partial Thromboplast Time 23.8 SECONDS (21.0-31.0) Partial Thromboplastin Ratio 0.9 Venous Blood pH 7.44 (7.36-7.41) Venous Blood Partial Pressure CO2 40 mmHg (38.0-50.0) Venous Blood Partial Pressure O2 47 mmHg Venous Blood HCO3 27 mmol/L Venous Blood Oxygen Saturation 82.1 % Venous Blood Base Excess 2.4 mEq/L Anion Gap 7.0 mmol/L (3-11) Est Creatinine Clear Calc Drug Dose 92.7 ml/min Estimated GFR () 88.9 Estimated GFR (Non- 76.7 BUN/Creatinine Ratio 13.4 (10-20) Lactic Acid Level 2.0 mmol/L (0.4-2.0) Calcium Level 8.6 mg/dl (8.5-10.1) Magnesium Level 1.7 mg/dl (1.8-2.4) Total Bilirubin 0.4 mg/dl (0.2-1) Aspartate Amino Transf (AST/SGOT) 65 U/L (15-37) Alanine Aminotransferase (ALT/SGPT) 35 U/L (12-78) Alkaline Phosphatase 152 U/L (45-117) Troponin I < 0.015 ng/ml (0-0.045) Pro-B-Type Natriuretic Peptide 210 pg/ml (0-450) Total Protein 7.3 gm/dl (6.4-8.2) Albumin 3.3 gm/dl (3.4-5.0) Globulin 4.0 gm/dl (2.5-4.0) Albumin/Globulin Ratio 0.8 (0.9-2) Lipase 186 U/L (73-393) Urine Color YELLOW Urine Appearance CLEAR (CLEAR) Urine pH 5.5 (4.5-7.5) Urine Specific [place] 1.022 (1.000-1.030) Urine Protein NEG (NEG) Urine Glucose (UA) NEG (NEG) Urine Ketones NEG (NEG) Urine Occult Blood NEG (NEG) Urine Nitrite NEG (NEG) Urine Bilirubin NEG (NEG) Urine Urobilinogen NEG (NEG) Urine Leukocyte Esterase SMALL (NEG) Urine WBC (Auto) 5-10 /hpf (0-5) Urine RBC (Auto) 0-4 /hpf (0-4) Urine Hyaline Casts (Auto) 1-5 /lpf (0-5) Urine Epithelial Cells (Auto) 20-30 /lpf (0-5) Urine Bacteria (Auto) NEG (NEG) Urine Test NEG (NEG) Medications Administered Medications (Trade) Dose Ordered Sig/Farzad Route Start Time Stop Time Status Last Admin Dose Admin Morphine Sulfate (MoRPHine SULFATE INJ) 4 mg NOW STAT IV 01/28/17 13:02 01/28/17 13:05 DC 01/28/17 13:36 4 MG Ondansetron HCl (Zofran Inj) 4 mg NOW STAT IV 01/28/17 13:02 01/28/17 13:05 DC 01/28/17 13:36 4 MG Hydromorphone HCl (Dilaudid Inj) 1 mg NOW STAT IV 01/28/17 14:25 01/28/17 14:26 DC 01/28/17 15:03 1 MG Heparin Sodium (Porcine) (Heparin 100 Unit/ml 5ml Flush) 5 ml STK-MED ONCE .ROUTE 01/28/17 15:38 01/28/17 15:39 DC 01/28/17 16:11 5 ML Medical Decision Patient was seen and evaluated as above. After obtaining a thorough history and physical examination previous visits were excessively reviewed. The patient has been here numerous times for similar complaint, and has had numerous CAT scans this year alone. Workup will begin with laboratory studies, as well as plain radiograph and ultrasound. Patient has documented history of nonalcoholic liver cirrhosis, a potential lesion on the liver, diabetes as well as previous history of stroke. At this time she has abdominal pain, fatigue, lower cavity swelling followed by shortness of breath. She has no chest pain. No history of blood clots. She denies chance of . Ultrasound is essentially negative for any emergent change in her previous imaging study. Chest x-ray with abdomen series is also essentially negative change compared to previous. There is slight gallbladder wall thickening. Bedside ultrasound reveals no ascites. She was given morphine for her pain, and Dilaudid. It is understood by myself that the patient was sent here by her family doctor and by GI. I did consult [facility], and spoke with Kajal COHEN. We reviewed the patient case, and it appears that at this time there is no emergent cause. Patient was offered inpatient management for further evaluation , pain management. She declined, noting that she would prefer to go home. She' ll be discharged home with a short course of pain medication. At this time the exact etiology of her pain is unclear, however this could be an acute exacerbation of her chronic pain, however this certainly or other nonemergent causes of which I recommend she follows up with her family doctor and GI specialist for. She is to return if worsening. She was educated upon worrisome symptoms which to return, had questions prior to discharge, and was discharged home in good condition. I personally reviewed the patient's medication list. Patient is hypertensive, I believe this is likely secondary to pain. In evaluation treatment this patient following differential diagnoses were entertained: Acute cholecystitis, ascites, peritonitis, among others. Impression Primary Impression: Abdominal pain Departure Information Dispostion Home / Self-Care Condition GOOD Prescriptions Oxycodone Ir (Roxicodone Ir) 5 Mg Tab 1-2 TAB PO Q4H Y for Pain, #15 TAB For Initial Treatment Prov: Bert Barnes PA-C 01/28/17 Referrals Scott Weldon M.D. (PCP) Patient Instructions My [facility] Additional Instructions You have been treated in the Emergency Department your Abdominal Pain. Laboratory results and imaging studies have ruled out any emergent causes for your abdominal pain which would warrant admission or surgery. You have been prescribed oxycodone to be used for pain control. This is a narcotic medication. You cannot drive or consume alcohol while on this medicine. This medicine should only be used for pain that cannot be controlled with [id number] pain medicines. Drink plenty of water and stay well hydrated. As with any trip to the Emergency Department, you should follow-up with your Primary Care Provider from today's visit. Please also follow-up with your GI specialist. Return to the emergency department if your symptoms persist despite treatment plan outlined above or if the following symptoms occur: increased fevers, chills , worsening nausea/vomiting, blood in your stool or urine. Thank you for your time. Problem Qualifiers Primary Impression: Abdominal pain Abdominal location: generalized Qualified Codes: R10.84 - Generalized abdominal pain
[2017-01-28 13:42] LABS: VEN BLD GAS O2 SATURATION 82.1 %; VEN BLOOD GAS BASE EXCESS 2.4 mEq/L
[2017-01-28 13:45] LABS: BASO % 0.6 %; BASO ABS # 0.05 K/uL (0-0.2); COMPLETE YES; EOS % 3.5 %; HEMATOCRIT 35.9 % (37-47); IG% 0.4 %; LYMPH % 28.9 %; LYMPH ABS # 2.37 K/uL (1.2-3.4); MEAN CELL VOLUME 86.1 fL (80-100); MEAN CORPUSCULAR HEMOGLOBIN 28.1 pg (25-34); MEAN CORPUSCULAR HGB CONC 32.6 g/dl (32-36); MEAN PLATELET VOLUME 9.3 fL (7.4-10.4); MONO % 7.1 %; NEUT % 59.5 %; PLATELET COUNT 156 K/uL (130-400); RED BLOOD COUNT 4.17 M/uL (4.2-5.4); WHITE BLOOD COUNT 8.19 K/uL (4.8-10.8)
[2017-01-28 13:58] LABS: URINE APPEARANCE CLEAR (CLEAR); URINE BILIRUBIN NEG (NEG); URINE COLOR YELLOW; URINE EPITHELIAL CELL AUTO 20-30 /lpf (0-5); URINE NITRITE NEG (NEG); URINE PH 5.5 (4.5-7.5); URINE SPECIFIC GRAVITY 1.022 (1.000-1.030); UROBILINOGEN NEG (NEG); ZZUR CULT IF INDIC CLEAN CATCH NO
[2017-01-28 14:01] LABS: PARTIAL THROMBOPLASTIN RATIO 0.9; PROTHROMBIN TIME (PATIENT) 11.2 SECONDS (9.0-12.0)
[2017-01-28 14:04] LABS: ALT/SGPT 35 U/L (12-78); AST/SGOT 65 U/L (15-37); BLOOD UREA NITROGEN 12 mg/dl (7-18); BUN/CREATININE RATIO 13.4 (10-20); CALCIUM 8.6 mg/dl (8.5-10.1); CARBON DIOXIDE 27 mmol/L (21-32); CHLORIDE 105 mmol/L (98-107); CREATININE 0.91 mg/dl (0.60-1.20); GLUCOSE 119 mg/dl (70-99); MAGNESIUM 1.7 mg/dl (1.8-2.4); POTASSIUM 3.9 mmol/L (3.5-5.1); SODIUM 139 mmol/L (136-145)
[2017-01-28 14:05] LABS: MANUAL MICROSCOPIC REQUIRED? NO; REVIEW REQ? NO
[2017-01-28 14:09] LABS: ALB/GLOB RATIO 0.8 (0.9-2); ALKALINE PHOSPHATASE 152 U/L (45-117)
--- NOTE | 2017-01-28 14:15 | DIAGNOSTIC IMAGING REPORT ---
CHEST AND ABDOMEN 2 VIEWS HISTORY: Dyspnea, weight gain with fluid retention COMPARISON: Chest x-ray and abdomen and pelvis CT 12/04/2016. FINDINGS: The lungs are clear. The heart remains top normal in size. No pleural effusions. No pneumothorax. Left subclavian Port-A-Cath terminates in the SVC. No pneumoperitoneum. No pneumatosis. No renal or ureteral calculi. Calcifications in the deep pelvis likely represent phleboliths. A 1.3 cm oval-shaped density overlying the left sacroiliac joint likely represents ingested medication. The bowel gas pattern is unremarkable. No dilated loops of bowel to suggest an obstruction. IMPRESSION: No acute cardiopulmonary process. No evidence for bowel obstruction. Electronically signed by: Rudy Borden M.D. 01/28/2017 2:13 PM Dictated Date/Time: 01/28/2017 2:11 PM
--- NOTE | 2017-01-28 14:24 | DIAGNOSTIC IMAGING REPORT ---
ABDOMINAL ULTRASOUND, RIGHT UPPER QUADRANT HISTORY: Right Upper quadrant abdominal pain. COMPARISON: Abdomen and pelvis CT 12/04/2016. FINDINGS: Pancreas: The pancreatic head and tail are obscured by overlying bowel gas. The remaining portions of the pancreas are within normal limits. Liver: Coarse echotexture. The liver is enlarged measuring 21 cm in length. No hepatic masses. Gallbladder: Borderline gallbladder wall thickening at 3 mm. No gallstones. CBD: 5 mm. Right kidney: No hydronephrosis. Spleen: Mildly enlarged measuring 13.5 cm in length. IMPRESSION: 1. Borderline gallbladder wall thickening. No gallstones. 2. Hepatosplenomegaly is again noted. 3. The pancreas was not well visualized. Electronically signed by: Rudy Borden M.D. 01/28/2017 2:23 PM Dictated Date/Time: 01/28/2017 2:21 PM
[2017-01-28] MEDS ORDERED: HYDROmorphone INJ 1 MG/ML SYR IV STA (14:25)
--- NOTE | 2017-01-28 14:42 | EMERGENCY ROOM VISIT NOTE ---
ED Visit Note First contact with patient: 12:52 HPI: PMHX of NALD p/w ABD distension/pain and SOB. PE: AFVSS, NAD NC/AT RRR, no murmurs CTAB Abd distended but soft mild upper ttp. Ext: 1+ edema, no erythema Neuro: grossly intact Plan: Labs unremarkable including INR wnl. US unchanged. Bedside US negative for appreciable ascites. PA d/w GI, recs for outpatient f/u. Patient agreeable. I reviewed the patient's past medical history, medications, and visit nursing notes. I discussed the case with the physician product safety technical assistant, examined the patient, and agree with the findings and plan as documented in the physician assistants note.
[2017-01-28] MEDS ORDERED: OXYC1TAB3 PO (15:49)
[2017-01-28 16:12] VITALS: BP 149/99; PULSE 85; O2SAT 95
== END 2017-01-28 16:13 | disposition home or self-care (01) ==
LOC: C.EDB 12:45
DX: R10.84 Generalized abdominal pain (principal); F31.9 Bipolar disorder, unspecified; K74.60 Unspecified cirrhosis of liver; E11.9 Type 2 diabetes mellitus without complications; E88.81 Metabolic syndrome and other insulin resistance; R73.9 Hyperglycemia, unspecified; I10 Essential (primary) hypertension; E87.6 Hypokalemia; K58.9 Irritable bowel syndrome, unspecified; Z83.3 Family history of diabetes mellitus; Z82.49 Family history of ischemic heart disease and other diseases of the circulatory system; Z79.4 Long term (current) use of insulin; K21.9 Gastro-esophageal reflux disease without esophagitis

== ENCOUNTER → 2017-04-26 | Outpatient (CLI) | payer OTHER ==
[~2017-04-26] MED LIST changes: +OXYC1TAB3 PO
--- NOTE | 2017-04-27 07:41 | SPLIT NIGHT TECHNICIAN REPORT ---
[facility] Split Night Polysomnogram - Product Transfer Pumper Report Study date: 04/26/2017 Referring Physician: Zaida Horan Name: JUDY TYSON Product Transfer Pumper: Nuha Welch, PSGT. Date of : 1970 Height: 46 years, Height 5' 4" Sex: Female Weight: 230 lbs Age: 46 Neck Circum: BMI: Medications: 39.48 SEE LIST OF 20 MEDICATIONS IN CHART. Patient History 46-YEAR-OLD FEMALE HERE FOR A TITRATION SLEEP STUDY IF AHI IS > 5 IN THE FIRST TWO HOURS OF SLEEP.PATIENT HAS A COMPLEX MEDICAL HISTORY, SEE CHART. SHE HAS USED C-PAP IN THE ON AND OFF FOR 6-7 YEARS.SHE ISNT ABLE TO TOLERATE A FULL-FACE MASK, EVEN THOUGH SHE KNOWS THAT SHE IS A MOUTH BREATHER.MERLIN IS WILLING TO TRY A FULL FACE TONIGHT, SINCE I TOLD HER THAT THEY HAVE COME ALONG WAY SINCE SHE FIRST TRIED ONE.ESS= 9, NECK = 17.25 INCHES. Parameters Monitored NPSG: E1-M2, E2-M1, Fp1-M2, Fp2-M1, F3-M2, F4-M2, F4-M1, C3-M2, C4-M2, C4-M1, O1-M2, O2-M2, O2-M1, T3-M2, T4-M1, P3-M2, P4-M1, CHIN1, CHIN2, HR, EKG, Legs, PFLOW, SNOR, FLOW, CFLOW, Tidal Volume, THOR, ABDO, SpO2, PLTH, CPRESS, ETCO2 Wave, ETCO2, pH SLEEP SUMMARY DATA DIAGNOSTIC TREATMENT Lights Out: 10:36:41 PM 1:40:11 AM Lights On: 1:33:41 AM 6:08:11 AM Total Recording Time (TRT): 177.4 min. 268.1 min. Total Sleep Time (TST): 145.0 min. 256.0 min. NREM Time: 130.0 min. 198.5 min. REM Time: 15.0 min. 57.5 min. Sleep Period Time (SPT): 145.0 min. 264.0 min. Sleep Efficiency (SE): 82 % 96 % Sleep Latency: 32.0 min. 4.0 min. Arousal Index: 43.4 4.5 PAP Treatment Levels: 4, 5, 6, 7, 8, 9 * Optimal Pressure(s) SLEEP STAGING DATA DIAGNOSTIC TREATMENT Duration (min) TST % Duration (min) TST % Stage Wake: 32.4 min. -- 11.6 min. -- WASO: 0.0 min. -- 8.0 min. -- NREM: 130.0 min. 90 % 198.5 min. 78 % Stage N1: 2.0 min. 1 % 5.5 min. 2 % Stage N2: 128.0 min. 88 % 150.0 min. 59 % Stage N3: 0.0 min. 0 % 43.0 min. 17 % REM: 15.0 min. 10 % 57.5 min. 22 % POSITIONAL DATA Event Count Index Event Count Index Supine: N/A N/A N/A N/A Supine NREM: N/A N/A N/A N/A Supine REM: N/A N/A N/A N/A Non-Supine: 107 44.3 1 0.2 Non-Supine NREM: 94 43.4 0 0.0 Non-Supine REM: 13 52.0 1 1.0 AROUSAL SUMMARY DATA: Event Count Index Event Count Index Apnea Arousals: 0 0.0 0 0.0 Hypopnea Arousals: 28 11.6 1 0.2 Snore Arousals: 16 6.6 3 0.7 PLM Arousals: 12 5.0 1 0.2 Non-Specific Arousals: 45 18.6 9 2.1 Total Arousals: 105 43.4 19 4.5 MYOCLONUS (PLM) Event Count Index Event Count Index PLM: 82 33.9 20 4.7 PLM AROUSAL: 12 5.0 1 0.2 PLM W/O AROUSAL 82 33.9 19 4.5 PLM W/RESP EVENT 10 0.0 0 0.0 MYOCLONUS (PLM) Event Count Index Event Count Index LM: 6 36.0 39 9.1 LM AROUSAL: 6 2.5 5 1.2 LM W/O AROUSAL LM W/RESP EVENT LM NON SPECIFIC 110 45.5 53 12.4 HEART RATE DATA DIAGNOSTIC TREATMENT Sleep (bpm): 83 81 REM (bpm): 91 93 NREM (bpm): 91 94 Tachycardia Count: 0 0 Tachycardia Duration: 0.00 0 Bradycardia Count: 0 0 Bradycardia Duration: 0.00 0 DIAGNOSTIC PORTION TREATMENT PORTION RESPIRATORY DATA Event Count Index Event Count Index AHI: -- 44.3 -- 0.2 RDI: -- 44.3 -- 0 Obstructive Apnea: 0 0.0 0 0.0 Central Apnea: 0 0.0 0 0.0 Mixed Apnea: 0 0.0 0 0.0 Hypopnea: 107 44.3 1 0.2 RERA: 0 0.0 0 0.0 Total Apneas: 0 0.0 0 0.0 RESPIRATORY DATA REM NREM SLEEP REM NREM SLEEP Supine Position: Obstructive Apneas: N/A N/A N/A N/A N/A N/A Central Apneas: N/A N/A N/A N/A N/A N/A Mixed Apneas: N/A N/A N/A N/A N/A N/A Hypopneas: N/A N/A N/A N/A N/A N/A RERA N/A N/A N/A N/A N/A N/A Total Supine Events: N/A N/A N/A N/A N/A N/A Supine AHI: N/A N/A N/A N/A N/A N/A Supine RDI: N/A N/A N/A N/A N/A N/A REM NREM SLEEP REM NREM SLEEP Non-Supine Position: Obstructive Apneas: 0 0 0 0 0 0 Central Apneas: 0 0 0 0 0 0 Mixed Apneas: 0 0 0 0 0 0 Hypopneas: 13 94 107 1 0 1 RERA 0 0 0 0 0 0 Total Supine Events: 13 94 107 1 0 1 Supine AHI: 52.0 43.4 44.3 1.0 0.0 0.2 Supine RDI: 52.0 43.4 44.3 1.0 0.0 0.2 OXYGEN DESTAURATION DATA: Event Count Index Event Count Index REM Desaturations: 32 128.0 8 8.3 NREM Desaturations: 175 80.8 0 0.0 SNORE DATA DIAGNOSTIC TREATMENT Snore Time: 14.3 1:44:11 AM Snore TST%: 4 14 Snore Arousal Count: 16 3 Snore Arousal Index: 6.6 0.7 Desaturation Event Summary: Minimum %SpO2 Event Count Mean/Min/Max Duration(sec.) Desaturation Index % Time In Bed > 90 215 21.2 / 6.3 / 60.0 34.0 85.6 86 - 90 13 14.5 / 8.0 / 30.5 12.3 14.4 81 - 85 0 N/A 0.0 0.0 76 - 80 0 N/A 0.0 0.0 71 - 75 0 N/A 0.0 0.0 66 - 70 0 N/A 0.0 0.0 61 - 65 0 N/A 0.0 0.0 56 - 60 0 N/A 0.0 0.0 51 - 55 0 N/A 0.0 0.0 < 50 0 N/A 0.0 0.0 OXYGEN SATURATION DATA DIAGNOSTIC TREATMENT SpO2 Mean Sleep: 91 % 94 % SpO2 Mean REM: 91 % 93 % SpO2 Mean NREM: 91 % 94 % SpO2 Minimum Sleep: 85 % 86 % SpO2 Minimum REM: 86 % 86 % SpO2 Minimum NREM: 85 % 90 % Time Below 90% (TST): 32.0 2.8 Time Below 88% (TST): 5.0 0.2 Total REM NREM Awake <50% 0.0 min. 0.0 min. 0.0 min. 0.0 min. 51 - 60% 0.0 min. 0.0 min. 0.0 min. 0.0 min. 61 - 70% 0.0 min. 0.0 min. 0.0 min. 0.0 min. 71 - 80% 0.0 min. 0.0 min. 0.0 min. 0.0 min. 81 - 90% 63.7 min. 12.1 min. 50.7 min. 0.8 min. 91 - 100% 378.9 min. 58.7 min. 277.7 min. 42.5 min. Average 93 93 93 93 Minimum SpO2 85 86 85 89 Desaturation Event Index 29.0 33.1 32.0 0.0 # Desat. Events below 89% 100 23 77 N/A Time(%) with Saturation below 89% 3.6 0.8 2.7 0.0 Time(min.) with Saturation below 89% 15.7 3.6 12.1 0.0 Recording Product Transfer Pumper Comments: Split -Night: MS. Tyson slept in the right, left, and supine positions. No cardiac arrhythmia . PLM's noted. No bruxism noted. Snoring was noted and scored as a 5 on a scale of 1 through 5. (0=no snoring, 5=snoring loud enough to be heard through a closed door or down the [address]raiza way) At 1:33 am, MS. Tyson has met specific Split-Night criteria during the diagnostic portion of this study. CPAP was initiated at +4 CMH2O and up-titrated to an optimal level of +8 CMH2O, which nearly eliminated all respiratory events and snoring. A small Res Med mirage quattro, was used during titration Ms. Tyson awoke to use the restroom zero times during the night. Ms. Tyson stated, I have a lot of nasal congestion this morning. The final report will be interpreted and signed by a sleep physician. The completed physician report will then be placed in the patient medical record. Patient was a split night, she is a mouth breather and loud snorer. She did agree to use a full-face mask after I explained to her that the nasal pillows would not work for a mouth breather. She tolerated the full-face mask well. Increases were made for respiratory events and snoring. Therapy Event: Therapy (cm H20) 0 4 5 6 7 8 9 Total Time at Pressure (min.) 177.0 22.0 60.4 80.5 42.0 30.3 32.4 TST at Pressure (min.) 145.0 18.0 59.9 80.5 35.0 30.3 32.4 # Periods 1 1 1 1 1 1 1 Sleep Onset (min.) 32.0 4.0 0.0 0.0 0.0 0.0 0.0 REM Onset (min.) 64.5 N/A 33.5 77.6 0.0 N/A 7.4 Sleep Efficiency % 81 81 99 100 83 100 100 Wakefulness (%) 18.1 18.2 0.8 0.0 16.7 0.0 0.0 Wakefulness (min.) 32.0 4.0 0.5 0.0 7.0 0.0 0.0 NREM 1 (%) 1.1 11.4 2.5 0.0 3.6 0.0 0.0 NREM 1 (min.) 2.0 2.5 1.5 0.0 1.5 0.0 0.0 NREM 2 (%) 72.3 56.9 13.1 80.2 65.2 100.0 22.7 NREM 2 (min.) 128.0 12.5 7.9 64.6 27.4 30.3 7.4 NREM 3 (%) 0.0 13.5 44.7 16.1 0.0 0.0 0.0 NREM 3 (min.) 0.0 3.0 27.0 13.0 0.0 0.0 0.0 REM (%) 8.5 0.0 38.9 3.6 14.5 0.0 77.3 REM (min.) 15.0 0.0 23.5 2.9 6.1 0.0 25.0 # Arousals 105 1 10 1 3 0 4 Arousal Index 43.4 3.3 10.0 0.7 5.1 0.0 7.4 # Snore 602 266 247 595 326 286 131 Snore Index 249.1 887.9 247.3 443.4 559.5 566.7 243.0 AHI 44.3 0.0 0.0 0.0 1.7 0.0 0.0 AHI Supine N/A N/A N/A N/A N/A N/A N/A AHI Non-Supine 44.3 0.0 0.0 0.0 1.7 0.0 0.0 NREM AHI 43.4 0.0 0.0 0.0 0.0 0.0 0.0 REM AHI 52.0 N/A 0.0 0.0 9.9 N/A 0.0 RDI 44.3 0.0 0.0 0.0 1.7 0.0 0.0 # Obstructive 0 0 0 0 0 0 0 # Central Ap 0 0 0 0 0 0 0 # Mixed 0 0 0 0 0 0 0 # Hypopneas 107 0 0 0 1 0 0 RERAS 0 0 0 0 0 0 0 Total Respiratory Events 107 0 0 0 1 0 0 Time Below SpO2 89.00% (min.) 15.0 0.0 0.5 0.0 0.1 0.0 0.2 Mean NREM SpO2 (%) 91 93 93 93 95 95 94 Mean REM SpO2 (%) 91 N/A 92 93 93 N/A 94 Mean Sleep SpO2 (%) 91 93 93 93 94 95 94 Min NREM SpO2 (%) 85 90 90 91 93 93 94 Min REM SpO2 (%) 86 N/A 86 91 88 N/A 88 Position Supine (min.) 0.0 0.0 0.0 0.0 0.0 0.0 0.0 Position Non-supine (min.) 145.0 18.0 59.9 80.5 35.0 30.3 32.4 LM Index Sleep 69.9 10.0 22.0 16.4 10.3 0.0 11.1 LM Index NREM 73.8 10.0 11.5 16.2 4.2 0.0 0.0 LM Index REM 36.0 N/A 38.3 20.6 39.4 N/A 14.4 Mean Heart Rate (bpm) 83 82 83 81 79 81 79 Min Heart Rate (bpm) 74 77 73 74 73 78 73
--- NOTE | 2017-04-28 15:28 | POLYSOMNOGRAPH REPORT ---
CLINICAL DATA: A 46-year-old female with BMI of 39.5 referred by NOEL Luz for a split night sleep study. She has previous history of sleep apnea and was on CPAP on and off for 6-7 years. Previously, she was unable to tolerate a full facemask. Her [place] sleeping score was 9/24. This was a split night study. SLEEP ARCHITECTURE: For the diagnostic portion of the study, sleep period time was 145 minutes. Total sleep time was 145 minutes divided between 130 minutes of non-REM sleep and 15 minutes of REM sleep. Sleep latency was 32 minutes. Sleep efficiency was 82%. Sleep consisted of stage N1 1%, stage N2 88%, REM 10%. For the treatment portion of the study, sleep period time was 264 minutes. Total sleep time was 256 minutes divided between 198.5 minutes of non-REM sleep and 57.5 minutes of REM sleep. Sleep latency was 4 minutes. Sleep efficiency was 96%. Sleep consisted of stage N1 2%, stage N2 59%, stage N3 17%, and REM 22%. AROUSAL DATA: Prior to treatment, 105 arousals were recorded for an index of 43.4 per hour. During treatment, 19 arousals were recorded for an index of 4.5 per hour. PLM DATA: Prior to treatment, 110 limb movements during sleep were noted for an index of 45.5 per hour. During treatment 53 limb movements during sleep were noted for an index of 12.4 per hour. EKG: Heart rates ranged from 81 to 94 beats per minute. No arrhythmias were noted. RESPIRATORY DATA: Prior to treatment, severe sleep apnea was diagnosed with diagnostic AHI of 44.3. There were 107 hypopneic episodes. The mean AHI during treatment was 0.2. There was 1 hypopneic episode during treatment. OXIMETRY DATA: Mild nocturnal hypoxemia was seen prior to treatment. Oxygen patricia was 85% during non-REM sleep prior to treatment. Mean saturation for the treatment was 94%. PRODUCTION WEIGHER'S COMMENTS AND TREATMENT SUMMARY: The patient slept in the right, left, and supine positions. Snoring was severe, rated 5 on a scale of 1-5. At 1:33 a.m. the patient met split night criteria. A small ResMed Mirage Quattro mask was used. She tolerated the full facemask well. She was started on CPAP and was titrated up to 9 cm of water pressure. At her final pressure setting, the patient slept for 32.4 minutes with an AHI of 0. IMPRESSION: Severe sleep apnea/hypopnea with diagnostic AHI of 44.3 corrected with CPAP 9 cm of water pressure, small ResMed Mirage Quattro full facemask. RECOMMENDATIONS: The patient should be started on the above noted treatment regimen and seen back in followup within 90 days to document efficacy and compliance. SAV
== END | disposition home or self-care (01) ==
LOC: C.NEUR 20:00
PROVIDERS: ATTEND Nurse Practitioner Family
DX: G47.33 Obstructive sleep apnea (adult) (pediatric) (principal)

== ENCOUNTER 2017-07-27 15:47 | Emergency (ER) | payer OTHER ==
[~2017-07-27] VITALS: Ht 162.6 cm; Wt 110.0 kg
[~2017-07-27 15:47] MED LIST changes: -LORA10TA5 PO; +LORA10TA6 PO
[2017-07-27 16:04] VITALS: Ht 162.6 cm; Wt 110.0 kg
[2017-07-27] MEDS ORDERED: HYDROmorphone INJ 1 MG/ML SYR IV STA ×2 (17:42→19:56)
[2017-07-27 18:02] LABS: BASO % 0.4 %; BASO ABS # 0.03 K/uL (0-0.2); EOS % 2.4 %; EOS ABS # 0.19 K/uL (0-0.5); HEMATOCRIT 35.7 % (37-47); HEMOGLOBIN 11.1 g/dL (12.0-16.0); IG# 0.03 K/uL (0.00-0.02); LYMPH % 24.2 %; MEAN CELL VOLUME 83.6 fL (80-100); MEAN CORPUSCULAR HGB CONC 31.1 g/dl (32-36); MEAN PLATELET VOLUME 9.7 fL (7.4-10.4); MONO % 7.8 %; MONO ABS # 0.61 K/uL (0.11-0.59); NEUT % 64.8 %; PLATELET COUNT 111 K/uL (130-400); RED CELL DISTRIBUTION WIDTH CV 15.1 % (11.5-14.5); RED CELL DISTRIBUTION WIDTH SD 45.8 fL (36.4-46.3); WHITE BLOOD COUNT 7.86 K/uL (4.8-10.8)
[2017-07-27] MEDS ORDERED: ONDANSETRON INJ 2 MG/ML 2 ML VIAL ONE (18:02)
[2017-07-27] MEDS ORDERED: ONDANSETRON INJ 2 MG/ML 2 ML VIAL IV STA ×2 (18:02→19:56)
[2017-07-27 18:20] LABS: CALCIUM 8.7 mg/dl (8.5-10.1); CREATININE 0.92 mg/dl (0.60-1.20)
[2017-07-27 18:25] LABS: TOTAL PROTEIN 7.5 gm/dl (6.4-8.2)
--- NOTE | 2017-07-27 18:29 | DIAGNOSTIC IMAGING REPORT ---
ABDOMEN 2VIEW W/PA CHEST RTN CLINICAL HISTORY: abdominal pain, distention, sob dyspnea COMPARISON STUDY: 01/28/2017 FINDINGS: Central catheter in the superior vena cava. Lungs are clear. Diaphragms are smooth. Bowel pattern is nonobstructive. IMPRESSION: No acute process. The above report was generated using voice recognition software. It may contain grammatical, syntax or spelling errors. Electronically signed by: Clarence Taylor M.D. 07/27/2017 6:28 PM Dictated Date/Time: 07/27/2017 6:27 PM
--- NOTE | 2017-07-27 19:06 | DIAGNOSTIC IMAGING REPORT ---
ASCITES-ABDOMEN LIMITED CLINICAL HISTORY: abdominal swelling, eval for ascites TECHNIQUE: Survey ultrasound COMPARISON STUDY: None FINDINGS: No evidence for ascites IMPRESSION: No evidence for ascites The above report was generated using voice recognition software. It may contain grammatical, syntax or spelling errors. Electronically signed by: Clarence Taylor M.D. 07/27/2017 7:04 PM Dictated Date/Time: 07/27/2017 7:04 PM
[2017-07-27 19:44] VITALS: TEMP 36.8
[2017-07-27 20:55] VITALS: BP 167/106; PULSE 99; O2SAT 96
--- NOTE | 2017-07-27 20:55 | EMERGENCY ROOM VISIT NOTE ---
History First contact with patient: 17:30 Chief Complaint: SHORTNESS OF BREATH Stated Complaint: TROUBLE BREATHING,MIGRAINE,FLUID IN LEGS AND BELLY Nursing Triage Summary: Swelling of ankles. Shortness of breath. Swelling began months ago but worsened this week. History of Present Illness The patient is a 47 year old female who presents to the Emergency Room with complaints of "retaining fluid." The patient states that she has noticed increased fluid in her legs and ankles for the past few weeks. She also reports chronic "swelling" of her abdomen but states this is feeling better today. She states that she sees [facility] for nonalcoholic cirrhosis and this is the cause of the swelling in her abdomen. She was seen cardiology today due to the chronic swelling in her legs. They did an echocardiogram and told her that this looked good, but sent her here for further evaluation of the swelling. She takes Lasix at home and states that her dosage was recently increased. She does note some shortness of breath with exertion. The patient also reports that she has a migraine which started this morning. She has a history of migraines and states this feels typical. The pain is located on the top of her head and she has associated nausea. She has tried ibuprofen without relief. The patient rates her overall discomfort in 8/10. She does report abdominal discomfort which is also chronic for her. She denies chest pain, cough, fever, neck pain/stiffness, diarrhea, urinary symptoms or vomiting. Review of Systems A complete 10 point review of systems was reviewed with the patient with pertinent positives and negatives as per history of present illness. All else were negative. Past Medical/Surgical History Medical Problems: (1) [id number] (2) Abdominal pain (3) Abdominal pain (4) Abdominal pain (5) Abdominal pain (6) Abdominal pain (7) Back pain (8) Bipolar Disorder, Unspecified (9) Bronchitis (10) Change in mental status (11) Cirrhosis of liver (12) Diab Estelita Wo Compl, Type Ii Or Unspec Type, Not Uncntrld (13) Dizziness (14) Dysmetabolic Syndrome X (15) Dysthymic Disorder (16) Head ache (17) Headache (18) Hyperglycemia (19) Hyperglycemia (20) Hypertension Nos (21) Hypokalemia (22) Irritable Bowel Syndrome (23) Migraine (24) Migraine (25) Migraine Unspecified W/O Intractable Migraine (26) MENDEZ (27) Palpitations (28) Pancreatitis (29) Pneumonia (30) Reflux Esophagitis (31) right kidney fibrosis (32) Slurred speech (33) Syncopal episodes (34) Syncope (35) Vaginal spotting (36) Weakness Surgical Problems: (1) Port catheter in place (2) Tubal Ligation Status Family History Diabetes mellitus Hypertension Kidney disease Social History Smoking Status: Never Smoker Alcohol Use: none Drug Use: none Marital Status: Housing Status: lives with family Occupation Status: unemployed Current/Historical Medications Scheduled Albiglutide (Tanzeum), 50 MG INJ WK Atenolol (Tenormin), 100 MG PO BID Atorvastatin (Lipitor), 40 MG PO HS Cyclobenzaprine HCl (Cyclobenzaprine HCl), 5 MG PO HS Gabapentin (Gabapentin), 100 MG PO TID Insulin Aspart (Novolog), 1 DOSE INJ UD Insulin Glargine (Lantus Solostar), 50 UNITS SC DAILY Lisinopril (Lisinopril), 10 MG PO HS Magnesium Oxide (Mag-Ox), 400 MG PO DAILY Metformin Hcl (Glucophage), 1,000 MG PO BIDM Omeprazole (Prilosec), 20 MG PO BID Potassium Chloride (Micro-K Ext Rel), 10 MEQ PO BID Quetiapine Fumarate (Seroquel), 50 MG PO HS Quetiapine Fumarate Xr (Seroquel Xr Tab), 400 MG PO DAILY Tramadol HCl (Tramadol HCl), 1 TAB PO BID Trazodone Hcl (Trazodone), 200 MG PO HS Scheduled PRN Furosemide (Lasix), 40 MG PO DAILY PRN for EDEMA Glucagon (Glucagon Emergency Kit), 1 MG INJ UD PRN for HYPOGLYCEMIA PROTOCOL Ibuprofen (Advil), 600 MG PO Q6H PRN for Pain Loratadine (Claritin), 10 MG PO DAILY PRN for Allergy Symptoms Meclizine Hcl (Meclizine Hcl), 1 TAB PO TID PRN for Dizziness or Vertigo Ondansetron (Ondansetron HCl), 4 MG PO Q6H PRN for Nausea Oxycodone Ir (Roxicodone Ir), 1-2 TAB PO Q4H PRN for Pain Polyethylene Glycol 3350 (Miralax), 1 TBS PO HS PRN for Severe constipation Physical Exam Vital Signs Date Time Temp Pulse Resp B/P (MAP) Pulse Ox O2 Delivery O2 Flow Rate FiO2 07/27/17 20:55 99 18 167/106 96 Room Air 07/27/17 19:44 36.8 98 18 167/104 96 Room Air 07/27/17 17:29 99 20 176/108 99 Nasal Cannula 07/27/17 16:04 36.6 102 20 167/86 97 Room Air Physical Exam VITALS: Vitals are noted on the nurse's note and reviewed by myself. Vital signs stable. GENERAL: This is a 47-year-old female, in no acute distress, nondiaphoretic, well-developed well-nourished. SKIN: The skin was without rashes. HEAD: Normocephalic atraumatic. EARS: External auditory canals clear, tympanic membranes pearly robles without erythema or effusion bilaterally. EYES: Pupils equal round and reactive to light and accommodation. Extraocular movements intact. MOUTH: Mucous membranes moist. Tonsils are not enlarged. Pharynx without erythema or exudate. NECK: Supple without nuchal rigidity. HEART: Regular rate and rhythm without murmurs gallops or rubs. LUNGS: Clear to auscultation bilaterally without wheezes, rales or rhonchi. No retractions or accessory muscle use. ABDOMEN: Abdomen is distended appearing. Positive bowel sounds x 4. Mild generalized abdominal tenderness. NEURO: Patient was alert and oriented to person place and time. Medical Decision & Procedures ER Provider Diagnostic Interpretation: ABDOMEN 2VIEW W/PA CHEST RTN FINDINGS: Central catheter in the superior vena cava. Lungs are clear. Diaphragms are smooth. Bowel pattern is nonobstructive. IMPRESSION: No acute process. ASCITES-ABDOMEN LIMITED FINDINGS: No evidence for ascites IMPRESSION: No evidence for ascites Laboratory Results 07/27/17 17:55 Red Blood Count 4.27, Mean Corpuscular Volume 83.6, Mean Corpuscular Hemoglobin 26.0, Mean Corpuscular Hemoglobin Concent 31.1, Mean Platelet Volume 9.7, Neutrophils (%) (Auto) 64.8, Lymphocytes (%) (Auto) 24.2, Monocytes (%) (Auto) 7.8, Eosinophils (%) (Auto) 2.4, Basophils (%) (Auto) 0.4, Neutrophils # (Auto) 5.10, Lymphocytes # (Auto) 1.90, Monocytes # (Auto) 0.61, Eosinophils # (Auto) 0.19, Basophils # (Auto) 0.03 07/27/17 17:55 Test 07/27/17 17:55 07/27/17 18:30 White Blood Count 7.86 K/uL (4.8-10.8) Red Blood Count 4.27 M/uL (4.2-5.4) Hemoglobin 11.1 g/dL (12.0-16.0) Hematocrit 35.7 % (37-47) Mean Corpuscular Volume 83.6 fL (80-100) Mean Corpuscular Hemoglobin 26.0 pg (25-34) Mean Corpuscular Hemoglobin Concent 31.1 g/dl (32-36) Platelet Count 111 K/uL (130-400) Mean Platelet Volume 9.7 fL (7.4-10.4) Neutrophils (%) (Auto) 64.8 % Lymphocytes (%) (Auto) 24.2 % Monocytes (%) (Auto) 7.8 % Eosinophils (%) (Auto) 2.4 % Basophils (%) (Auto) 0.4 % Neutrophils # (Auto) 5.10 K/uL (1.4-6.5) Lymphocytes # (Auto) 1.90 K/uL (1.2-3.4) Monocytes # (Auto) 0.61 K/uL (0.11-0.59) Eosinophils # (Auto) 0.19 K/uL (0-0.5) Basophils # (Auto) 0.03 K/uL (0-0.2) RDW Standard Deviation 45.8 fL (36.4-46.3) RDW Coefficient of Variation 15.1 % (11.5-14.5) Immature Granulocyte % (Auto) 0.4 % Immature Granulocyte # (Auto) 0.03 K/uL (0.00-0.02) D-Dimer 300 ug/L FEU (0-500) Anion Gap 9.0 mmol/L (3-11) Est Creatinine Clear Calc Drug Dose 93.7 ml/min Estimated GFR () 87.2 Estimated GFR (Non- 75.2 BUN/Creatinine Ratio 9.1 (10-20) Calcium Level 8.7 mg/dl (8.5-10.1) Total Bilirubin 0.4 mg/dl (0.2-1) Aspartate Amino Transf (AST/SGOT) 61 U/L (15-37) Alanine Aminotransferase (ALT/SGPT) 28 U/L (12-78) Alkaline Phosphatase 172 U/L (45-117) Troponin I < 0.015 ng/ml (0-0.045) Pro-B-Type Natriuretic Peptide 67 pg/ml (0-450) Total Protein 7.5 gm/dl (6.4-8.2) Albumin 3.0 gm/dl (3.4-5.0) Globulin 4.5 gm/dl (2.5-4.0) Albumin/Globulin Ratio 0.7 (0.9-2) Lipase 375 U/L (73-393) Beta-Hydroxybutyric Acid 1.20 mg/dL (0.2-2.81) Urine Color YELLOW Urine Appearance CLEAR (CLEAR) Urine pH 7.0 (4.5-7.5) Urine Specific [place] 1.025 (1.000-1.030) Urine Protein NEG (NEG) Urine Glucose (UA) 3+ (NEG) Urine Ketones NEG (NEG) Urine Occult Blood NEG (NEG) Urine Nitrite NEG (NEG) Urine Bilirubin NEG (NEG) Urine Urobilinogen NEG (NEG) Urine Leukocyte Esterase TRACE (NEG) Urine WBC (Auto) 5-10 /hpf (0-5) Urine RBC (Auto) 0-4 /hpf (0-4) Urine Hyaline Casts (Auto) 1-5 /lpf (0-5) Urine Epithelial Cells (Auto) >30 /lpf (0-5) Urine Bacteria (Auto) NEG (NEG) Medications Administered Medications (Trade) Dose Ordered Sig/Farzad Route Start Time Stop Time Status Last Admin Dose Admin Hydromorphone HCl (Dilaudid Inj) 1 mg NOW STAT IV 07/27/17 17:42 07/27/17 17:46 DC 07/27/17 18:01 1 MG Ondansetron HCl (Zofran Inj) 4 mg NOW STAT IV 07/27/17 18:02 07/27/17 18:03 DC 07/27/17 18:02 4 MG Hydromorphone HCl (Dilaudid Inj) 1 mg NOW STAT IV 07/27/17 19:56 07/27/17 19:57 DC 07/27/17 19:56 1 MG Ondansetron HCl (Zofran Inj) 4 mg NOW STAT IV 07/27/17 19:56 07/27/17 19:57 DC 07/27/17 20:11 4 MG ECG Per My Interpretation Rate (beats per minute): 96 Rhythm: normal sinus Findings: no acute ischemic change, no ectopy Change: no significant change ED Course The patient was evaluated as above. Labs were drawn and IV access was obtained. Patient was medicated with 1 mg Dilaudid and 4 mg Zofran IV. Abdominal series and abdominal ultrasound were performed and read by radiology as above. Patient was reevaluated and stated that she had increased pain. She was given an additional dose of Dilaudid and Zofran. Discharge instructions were reviewed with the patient. The patient verbalized understanding of my assessment and treatment plan and was discharged home in good condition. Medical Decision Differential diagnosis includes ascites, bowel obstruction, pulmonary embolism, pneumonia, electrolyte abnormality, ACS, among others. The patient is a 47-year-old female who presents today complaining of swelling and shortness of breath. Labs revealed no leukocytosis. There is a mild anemia. Mild thrombocytopenia with platelet count of 111. Patient reports this is similar to outpatient labs she had last week. Alk phos elevated at 172 AST elevated at 61, which patient reports is chronic. Troponin is not elevated. D-dimer is not elevated. Urinalysis was not suggestive of infection. EKG was interpreted by myself and shows a normal sinus rhythm, unchanged from previous EKG. abdominal series was unremarkable. Abdominal ultrasound showed no evidence of ascites. Patient felt much better after the above treatment. I had a lengthy discussion with the patient regarding her symptoms. Most of these are chronic. She is comfortable following up with her primary care provider and establish manager ob regarding her symptoms. She was encouraged to return here with any worsening or new/concerning symptoms. The patient's case was reviewed with Dr. Landers, ED attending physician, who agreed with my assessment and treatment plan. Based on the patient's presentation and work up, I feel the patient is stable for outpatient treatment. The patient was educated to return to the emergency department for any worsening of their current condition or new/concerning symptoms. She will follow up with her PCP and GI. Medication Reconcilliation Current Medication List: was personally reviewed by me Blood Pressure Screening Patient's blood pressure: Elevated blood pressure Blood pressure disposition: Referred to PCP Impression Primary Impression: Abdominal pain Departure Information Dispostion Home / Self-Care Condition GOOD Referrals Scott Weldon M.D. (PCP) Patient Instructions My [facility] [place] [employer] Additional Instructions Follow-up with your primary care provider and manager ob regarding your chronic abdominal pain. For pain control, you can use the following [id number] medicines (if >12 yo): - Regular strength (325mg/tab) Tylenol (acetaminophen) 2 tabs every 4-6 hours as needed. Do not exceed 12 tablets in a 24 hour period. Avoid taking more than 4 grams (4000 mg) of Tylenol per day. This includes any other sources of acetaminophen you may take on a regular basis. - Regular strength (200 mg/tab) Advil (ibuprofen) 1-2 tabs every 4-6 hours as needed. Do not exceed a dose of 3200 mg per day. Return to the emergency department with any worsening or new/concerning symptoms.
== END 2017-07-27 21:13 | disposition home or self-care (01) ==
LOC: C.EDB 15:49 → C.EDC 21:13
DX: R10.9 Unspecified abdominal pain (principal); E11.9 Type 2 diabetes mellitus without complications; I10 Essential (primary) hypertension; R56.9 Unspecified convulsions; Z83.3 Family history of diabetes mellitus; Z82.49 Family history of ischemic heart disease and other diseases of the circulatory system; Z79.4 Long term (current) use of insulin; E87.6 Hypokalemia

== ENCOUNTER 2017-09-08 16:30 | Emergency (ER) | payer OTHER ==
[~2017-09-08] VITALS: Ht 162.6 cm; Wt 105.9 kg
[~2017-09-08 16:30] MED LIST changes: -OXYC1TAB3 PO
[2017-09-08 16:48] VITALS: TEMP 37; Ht 162.6 cm; Wt 105.9 kg
[2017-09-08] MEDS ORDERED: SODIUM CHLORIDE 0.9% 1000ML 1,000 ML IV STA (18:26)
[2017-09-08] MEDS ORDERED: ONDANSETRON INJ 2 MG/ML 2 ML VIAL IV STA (18:26)
[2017-09-08] MEDS: HYDROmorphone INJ 2 MG/ML SYR/VIAL IV PRN ×2 (18:58→20:28)
[2017-09-08 19:06] LABS: BASO % 0.5 %; BASO ABS # 0.05 K/uL (0-0.2); EOS % 2.1 %; EOS ABS # 0.21 K/uL (0-0.5); HEMATOCRIT 34.9 % (37-47); HEMOGLOBIN 11.5 g/dL (12.0-16.0); IG# 0.03 K/uL (0.00-0.02); LYMPH % 19.4 %; LYMPH ABS # 1.97 K/uL (1.2-3.4); MEAN CELL VOLUME 81.4 fL (80-100); MEAN CORPUSCULAR HEMOGLOBIN 26.8 pg (25-34); MEAN PLATELET VOLUME 9.8 fL (7.4-10.4); MONO % 6.1 %; MONO ABS # 0.62 K/uL (0.11-0.59); NEUT % 71.6 %; NEUT ABS # 7.26 K/uL (1.4-6.5); PLATELET COUNT 139 K/uL (130-400); RED CELL DISTRIBUTION WIDTH CV 15.2 % (11.5-14.5); RED CELL DISTRIBUTION WIDTH SD 44.6 fL (36.4-46.3); WHITE BLOOD COUNT 10.14 K/uL (4.8-10.8)
[2017-09-08 19:30] LABS: ALBUMIN 3.3 gm/dl (3.4-5.0); CALCIUM 8.6 mg/dl (8.5-10.1); CREATININE 0.95 mg/dl (0.60-1.20); POTASSIUM 3.9 mmol/L (3.5-5.1); TOTAL PROTEIN 8.5 gm/dl (6.4-8.2)
--- NOTE | 2017-09-08 19:47 | DIAGNOSTIC IMAGING REPORT ---
CHEST AND ABDOMEN 2 VIEWS HISTORY: Generalized abdominal pain. COMPARISON: Chest and abdominal series 07/27/2017. FINDINGS: No pleural effusions. No pneumothorax. Left subclavian Port-A-Cath terminates at the SVC. The heart is normal in size. Stable mild elevation of the right hemidiaphragm. No focal lung consolidations. No evidence for pulmonary edema. No pneumoperitoneum. No pneumatosis. Calcifications in the deep pelvis favor phleboliths. No renal calculi identified. The bowel gas pattern is unremarkable. No evidence for bowel obstruction. No pneumoperitoneum. No pneumatosis. IMPRESSION: No acute cardiopulmonary process. No evidence for bowel obstruction. Electronically signed by: Rudy Borden M.D. 09/08/2017 7:46 PM Dictated Date/Time: 09/08/2017 7:41 PM
--- NOTE | 2017-09-08 19:57 | DIAGNOSTIC IMAGING REPORT ---
ABDOMINAL ULTRASOUND, RIGHT UPPER QUADRANT HISTORY: Generalized abdominal pain.. COMPARISON: Abdominal ultrasound 01/28/2017. FINDINGS: Pancreas: Obscured by overlying bowel gas. Liver: Nodular contour to the liver consistent with cirrhosis. Heterogeneous echotexture within the liver. No definite masses. Gallbladder: Poor visibility of the gallbladder. There may be gallbladder wall thickening of 6 mm adjacent to the hepatic surface. No definite gallstones. CBD: 5 mm. Right kidney: No hydronephrosis. IMPRESSION: 1. There appears to be thickening of the gallbladder wall adjacent to the hepatic surface. Therefore, this favors reactive change secondary to underlying hepatic pathology. No gallstones identified. 2. Enlarged and cirrhotic liver is again noted. 3. Normal caliber common bile duct. 4. The pancreas was obscured. Electronically signed by: Rudy Borden M.D. 09/08/2017 7:56 PM Dictated Date/Time: 09/08/2017 7:52 PM
[2017-09-08] MEDS ORDERED: ALUMINUM/MAGNESIUM SUSP 30 ML UDC PO STA (20:21)
[2017-09-08] MEDS ORDERED: LIDOCAINE HCL 2% VISC SOLN 20 ML UDC PO STA (20:21)
[2017-09-08] MEDS ORDERED: PROCHLORPERAZINE 5 MG/ML 2 ML VIAL IV STA (21:06)
[2017-09-08] MEDS ORDERED: HYDROmorphone INJ 0.5 MG/0.5 ML SYR IV STA (21:06)
--- NOTE | 2017-09-08 21:09 | EMERGENCY ROOM VISIT NOTE ---
History Report prepared by Jaime: Horace Tellez Under the Supervision of: Dr. Vishal Georges D.O. First contact with patient: 18:18 Chief Complaint: ABDOMINAL PAIN Stated Complaint: BLEEDING FROM STOMACH AND PAIN, VOMITING History of Present Illness The patient is a 47 year old female who presents to the Emergency Room with complaints of waxing/waning abdominal pain that started this morning. She rates her discomfort as a 9/10 in severity. She describes the pain as a stabbing and cramping sensation. The patient states that her last bowel movement was last night. She reports her bowel movement was not normal since she was constipated. The patient states that her abdominal pain was the first symptom that developed this morning. She reports that the pain improved and worsened throughout the day. She states that her pain has been accompanied by nausea. The patient states that starting four hours ago she started to experience episodes of emesis. She reports that her vomit had some red in some episodes and "coffee ground black" in others. The patient reports that she has been experiencing similar pain in the past month, which her physician believes could be due to gastroparesis. She denies any abdominal surgery due to a history of cirrhosis. She reports that she had an EGD done on 08/25 due to her history of trouble swallowing. The patient reports that she was told her esophagus was normal other than some residual food found. Source of History: patient Onset: this morning Position: abdomen Symptom Intensity: 9/10 Quality: stabbing, cramping Timing: waxes/wanes Associated Symptoms: + nausea, + vomiting Note: Associated symptoms: blood in vomit, constipation. Review of Systems See HPI for pertinent positives & negatives. A total of 10 systems reviewed and were otherwise negative. Past Medical & Surgical Medical Problems: (1) [id number] (2) Abdominal pain (3) Abdominal pain (4) Abdominal pain (5) Abdominal pain (6) Abdominal pain (7) Back pain (8) Bipolar Disorder, Unspecified (9) Bronchitis (10) Change in mental status (11) Cirrhosis of liver (12) Diab Estelita Wo Compl, Type Ii Or Unspec Type, Not Uncntrld (13) Dizziness (14) Dysmetabolic Syndrome X (15) Dysthymic Disorder (16) Head ache (17) Headache (18) Hyperglycemia (19) Hyperglycemia (20) Hypertension Nos (21) Hypokalemia (22) Irritable Bowel Syndrome (23) Migraine (24) Migraine (25) Migraine Unspecified W/O Intractable Migraine (26) MENDEZ (27) Palpitations (28) Pancreatitis (29) Pneumonia (30) Reflux Esophagitis (31) right kidney fibrosis (32) Slurred speech (33) Syncopal episodes (34) Syncope (35) Vaginal spotting (36) Weakness Surgical Problems: (1) Port catheter in place (2) Tubal Ligation Status Family History Diabetes mellitus Hypertension Kidney disease Social History Smoking Status: Never Smoker Alcohol Use: none Drug Use: none Marital Status: Housing Status: lives with family Occupation Status: unemployed Current/Historical Medications Scheduled Albiglutide (Tanzeum), 50 MG INJ WK Atenolol (Tenormin), 100 MG PO BID Atorvastatin (Lipitor), 40 MG PO HS Cyclobenzaprine HCl (Cyclobenzaprine HCl), 5 MG PO HS Gabapentin (Gabapentin), 100 MG PO TID Insulin Aspart (Novolog), 1 DOSE INJ UD Insulin Glargine (Lantus Solostar), 50 UNITS SC DAILY Lisinopril (Lisinopril), 10 MG PO HS Magnesium Oxide (Mag-Ox), 400 MG PO DAILY Metformin Hcl (Glucophage), 1,000 MG PO BIDM Omeprazole (Prilosec), 20 MG PO BID Potassium Chloride (Micro-K Ext Rel), 10 MEQ PO BID Quetiapine Fumarate (Seroquel), 50 MG PO HS Quetiapine Fumarate Xr (Seroquel Xr Tab), 400 MG PO DAILY Tramadol HCl (Tramadol HCl), 1 TAB PO BID Trazodone Hcl (Trazodone), 200 MG PO HS Scheduled PRN Furosemide (Lasix), 40 MG PO DAILY PRN for EDEMA Glucagon (Glucagon Emergency Kit), 1 MG INJ UD PRN for HYPOGLYCEMIA PROTOCOL Ibuprofen (Advil), 600 MG PO Q6H PRN for Pain Loratadine (Claritin), 10 MG PO DAILY PRN for Allergy Symptoms Meclizine Hcl (Meclizine Hcl), 1 TAB PO TID PRN for Dizziness or Vertigo Ondansetron (Ondansetron HCl), 4 MG PO Q6H PRN for Nausea Polyethylene Glycol 3350 (Miralax), 1 TBS PO HS PRN for Severe constipation Allergies Coded Allergies: Naproxen (Verified Allergy, Unknown, BLEEDING, 01/28/17) Physical Exam Vital Signs Date Time Temp Pulse Resp B/P (MAP) Pulse Ox O2 Delivery O2 Flow Rate FiO2 09/08/17 20:06 108 18 168/84 98 Room Air 09/08/17 18:35 115 164/104 96 Room Air 09/08/17 16:48 37.0 120 18 145/80 96 Room Air Physical Exam CONSTITUTIONAL/VITAL SIGNS: Reviewed / noted above. GENERAL: Non-toxic in appearance. INTEGUMENTARY: Warm, dry, and [place]. HEAD: Normocephalic. EYES: without scleral icterus or trauma. ENT/OROPHARYNX: clear and moist. LYMPHADENOPATHY/NECK: Is supple without lymphadenopathy or meningismus. RESPIRATORY: Lungs clear and equal. CARDIOVASCULAR: Regular rate and rhythm. GI/ABDOMEN: Soft and tender in the epigastric and RUQ region. No organomegaly or pulsatile mass. No rebound or guarding. Normal bowel sounds. EXTREMITIES: Warm and well perfused. BACK: No CVA tenderness. NEUROLOGICAL: Intact without focal deficits. PSYCHIATRIC: normal affect. MUSCULOSKELETAL: Normally developed with good muscle tone. Medical Decision & Procedures ER Provider Diagnostic Interpretation: Radiology results as stated below per my review and radiologist interpretation: ABDOMINAL ULTRASOUND, RIGHT UPPER QUADRANT HISTORY: Generalized abdominal pain.. COMPARISON: Abdominal ultrasound 01/28/2017. FINDINGS: Pancreas: Obscured by overlying bowel gas. Liver: Nodular contour to the liver consistent with cirrhosis. Heterogeneous echotexture within the liver. No definite masses. Gallbladder: Poor visibility of the gallbladder. There may be gallbladder wall thickening of 6 mm adjacent to the hepatic surface. No definite gallstones. CBD: 5 mm. Right kidney: No hydronephrosis. IMPRESSION: 1. There appears to be thickening of the gallbladder wall adjacent to the hepatic surface. Therefore, this favors reactive change secondary to underlying hepatic pathology. No gallstones identified. 2. Enlarged and cirrhotic liver is again noted. 3. Normal caliber common bile duct. 4. The pancreas was obscured. Electronically signed by: Rudy Borden M.D. 09/08/2017 7:56 PM Dictated Date/Time: 09/08/2017 7:52 PM CHEST AND ABDOMEN 2 VIEWS HISTORY: Generalized abdominal pain. COMPARISON: Chest and abdominal series 07/27/2017. FINDINGS: No pleural effusions. No pneumothorax. Left subclavian Port-A-Cath terminates at the SVC. The heart is normal in size. Stable mild elevation of the right hemidiaphragm. No focal lung consolidations. No evidence for pulmonary edema. No pneumoperitoneum. No pneumatosis. Calcifications in the deep pelvis favor phleboliths. No renal calculi identified. The bowel gas pattern is unremarkable. No evidence for bowel obstruction. No pneumoperitoneum. No pneumatosis. IMPRESSION: No acute cardiopulmonary process. No evidence for bowel obstruction. Electronically signed by: Rudy Borden M.D. 09/08/2017 7:46 PM Dictated Date/Time: 09/08/2017 7:41 PM Laboratory Results 09/08/17 18:20 Red Blood Count 4.29, Mean Corpuscular Volume 81.4, Mean Corpuscular Hemoglobin 26.8, Mean Corpuscular Hemoglobin Concent 33.0, Mean Platelet Volume 9.8, Neutrophils (%) (Auto) 71.6, Lymphocytes (%) (Auto) 19.4, Monocytes (%) (Auto) 6.1, Eosinophils (%) (Auto) 2.1, Basophils (%) (Auto) 0.5, Neutrophils # (Auto) 7.26, Lymphocytes # (Auto) 1.97, Monocytes # (Auto) 0.62, Eosinophils # (Auto) 0.21, Basophils # (Auto) 0.05 09/08/17 18:20 Test 09/08/17 18:20 09/08/17 18:50 White Blood Count 10.14 K/uL (4.8-10.8) Red Blood Count 4.29 M/uL (4.2-5.4) Hemoglobin 11.5 g/dL (12.0-16.0) Hematocrit 34.9 % (37-47) Mean Corpuscular Volume 81.4 fL (80-100) Mean Corpuscular Hemoglobin 26.8 pg (25-34) Mean Corpuscular Hemoglobin Concent 33.0 g/dl (32-36) Platelet Count 139 K/uL (130-400) Mean Platelet Volume 9.8 fL (7.4-10.4) Neutrophils (%) (Auto) 71.6 % Lymphocytes (%) (Auto) 19.4 % Monocytes (%) (Auto) 6.1 % Eosinophils (%) (Auto) 2.1 % Basophils (%) (Auto) 0.5 % Neutrophils # (Auto) 7.26 K/uL (1.4-6.5) Lymphocytes # (Auto) 1.97 K/uL (1.2-3.4) Monocytes # (Auto) 0.62 K/uL (0.11-0.59) Eosinophils # (Auto) 0.21 K/uL (0-0.5) Basophils # (Auto) 0.05 K/uL (0-0.2) RDW Standard Deviation 44.6 fL (36.4-46.3) RDW Coefficient of Variation 15.2 % (11.5-14.5) Immature Granulocyte % (Auto) 0.3 % Immature Granulocyte # (Auto) 0.03 K/uL (0.00-0.02) Prothrombin Time 11.0 SECONDS (9.0-12.0) Prothromb Time International Ratio 1.0 (0.9-1.1) Activated Partial Thromboplast Time 20.0 SECONDS (21.0-31.0) Partial Thromboplastin Ratio 0.8 Anion Gap 10.0 mmol/L (3-11) Est Creatinine Clear Calc Drug Dose 88.8 ml/min Estimated GFR () 83.8 Estimated GFR (Non- 72.3 BUN/Creatinine Ratio 13.4 (10-20) Calcium Level 8.6 mg/dl (8.5-10.1) Total Bilirubin 0.4 mg/dl (0.2-1) Direct Bilirubin 0.1 mg/dl (0-0.2) Aspartate Amino Transf (AST/SGOT) 58 U/L (15-37) Alanine Aminotransferase (ALT/SGPT) 29 U/L (12-78) Alkaline Phosphatase 172 U/L (45-117) Total Protein 8.5 gm/dl (6.4-8.2) Albumin 3.3 gm/dl (3.4-5.0) Lipase 431 U/L (73-393) Beta-Hydroxybutyric Acid 1.57 mg/dL (0.2-2.81) Human Chorionic Gonadotropin, Qual NEG (NEG) Urine Color YELLOW Urine Appearance CLEAR (CLEAR) Urine pH 5.0 (4.5-7.5) Urine Specific [place] 1.027 (1.000-1.030) Urine Protein NEG (NEG) Urine Glucose (UA) 3+ (NEG) Urine Ketones NEG (NEG) Urine Occult Blood NEG (NEG) Urine Nitrite NEG (NEG) Urine Bilirubin NEG (NEG) Urine Urobilinogen NEG (NEG) Urine Leukocyte Esterase NEG (NEG) Urine WBC (Auto) 1-5 /hpf (0-5) Urine RBC (Auto) 0-4 /hpf (0-4) Urine Hyaline Casts (Auto) 0 /lpf (0-5) Urine Epithelial Cells (Auto) 10-20 /lpf (0-5) Urine Bacteria (Auto) NEG (NEG) Laboratory results as stated above per my review. Medications Administered Medications (Trade) Dose Ordered Sig/Farzad Route Start Time Stop Time Status Last Admin Dose Admin Sodium Chloride 1,000 ml @ 999 mls/hr Q1H1M STAT IV 09/08/17 18:26 09/08/17 19:26 DC 09/08/17 18:58 999 MLS/HR Ondansetron HCl (Zofran Inj) 4 mg NOW STAT IV 09/08/17 18:26 09/08/17 18:29 DC 09/08/17 18:58 4 MG Hydromorphone HCl (Dilaudid Inj) 1 mg Q1H PRN IV 09/08/17 18:30 09/22/17 18:29 09/08/17 20:28 1 MG Al Hydroxide/Mg Hydroxide (Maalox Susp) 30 ml NOW STAT PO 09/08/17 20:21 09/08/17 20:23 DC 09/08/17 20:29 30 ML Lidocaine HCl (Viscous Lidocaine 2% Soln) 10 ml NOW STAT PO 09/08/17 20:21 09/08/17 20:23 DC 09/08/17 20:29 10 ML ED Course 182: Previous medical records were reviewed. The patient was evaluated in room C03. A complete history and physical examination was performed. 1825: Ordered Zofran Injection 4 mg IV, Sodium Chloride 1000 ml @ 999 mls/hr IV. 1829: Ordered Dilaudid Injection 1 mg IV. 2020: Ordered Lidocaine HCl 10 ml PO, Maalox Susp 30 ml PO. 2103: On reevaluation, the patient is resting comfortably. I discussed the results and findings with the patient. She verbalized agreement of the treatment plan. The patient was discharged home. 2105: Ordered Dilaudid Injection 0.5 mg IV, Compazine Injection 10 mg IV. Medical Decision Differential considered: pancreatitis, hepatitis, or acute cholecystitis, AAA, UTI, pyelonephritis, kidney stones, appendicitis, diverticulitis, shingles, bowel obstruction mesenteric ischemia, intussusception,hernia, ovarian torsion, ruptured ovarian cyst,ectopic , . This is a 47-year-old female who presents to the ED with a chief complaint of upper abdominal discomfort. The patient reports that she has had similar symptoms previously. She states the symptoms have been attributed to her gastroparesis. She had an EGD on the of last month. The esophagus appeared normal but there was some residual food in the esophagus at the time of the EGD. The patient reports a history of MENDEZ. She states that her upper abdominal pain started this morning and was associated with some vomiting. She states that she may have had a small amount of blood in the vomitus. She reports the pain as a cramping and stabbing type pain that comes and goes. She had a normal bowel movement yesterday evening. She states that she was slightly constipated. Denies any urinary symptoms. Her physical exam reveals a tachycardia. She also is noted to have some upper abdominal discomfort more so in the epigastric area but also in the right upper quadrant. The patient has minimal pedal edema. Exam was otherwise unremarkable. The patient's CBC is normal, glucose is elevated at 354, she is insulin-dependent diabetic and has a insulin pump. Lipase was 431, AST was 58 and ALT was 29. Alkaline phosphatase was 172 and albumin was 3.3. Urine did not show infection. Acute abdominal series did not show obstructive pattern or free air in the lungs were unremarkable. Gallbladder ultrasound shows expected findings with the known history of cirrhosis. The patient was treated with IV Dilaudid, IV Zofran, IV fluids, IV Compazine and a GI cocktail p.o. She was told the results of the test. Her symptoms did improve some. She was felt to be stable for discharge and outpatient follow-up. She states that her GI specialist think that the symptoms are related to her gastroparesis. Medication Reconcilliation Current Medication List: was personally reviewed by me Blood Pressure Screening Patient's blood pressure: Elevated blood pressure Blood pressure disposition: Elevated BP felt to be situational Impression Primary Impression: Epigastric abdominal pain Additional Impression: Vomiting Scribe Attestation The scribe's documentation has been prepared under my direction and personally reviewed by me in its entirety. I confirm that the note above accurately reflects all work, treatment, procedures, and medical decision making performed by me. Departure Information Dispostion Home / Self-Care Referrals No Doctor, Assigned (PCP) Patient Instructions Abdominal Pain, My [facility] Additional Instructions Follow-up with your doctor for further care and evaluation in 1-2 days. Return to the emergency department for worsening or new symptoms or any concerns. You have been examined and treated today on an emergency basis only. This is not a substitute for, or an effort to provide, complete comprehensive medical care. It is impossible to recognize and treat all injuries or illnesses in a single emergency department visit. It is therefore important that you follow up closely with your doctor. Call as soon as possible for an appointment. Problem Qualifiers
[2017-09-08 22:02] VITALS: BP 155/76; PULSE 116; O2SAT 95
== END 2017-09-08 22:04 | disposition home or self-care (01) ==
LOC: C.EDB 16:31 → C.EDC 22:04
DX: R10.13 Epigastric pain (principal); R10.11 Right upper quadrant pain; R11.10 Vomiting, unspecified; R00.0 Tachycardia, unspecified; R60.0 Localized edema; E11.65 Type 2 diabetes mellitus with hyperglycemia; E11.43 Type 2 diabetes mellitus with diabetic autonomic (poly)neuropathy; K31.84 Gastroparesis; Z79.4 Long term (current) use of insulin; Z96.41 Presence of insulin pump (external) (internal); K75.81 Nonalcoholic steatohepatitis (NASH); E88.81 Metabolic syndrome and other insulin resistance; G43.909 Migraine, unspecified, not intractable, without status migrainosus; I10 Essential (primary) hypertension; E87.6 Hypokalemia; F31.9 Bipolar disorder, unspecified; F34.1 Dysthymic disorder; N26.9 Renal sclerosis, unspecified; K58.9 Irritable bowel syndrome, unspecified; K21.9 Gastro-esophageal reflux disease without esophagitis; Z95.828 Presence of other vascular implants and grafts; Z88.6 Allergy status to analgesic agent

== ENCOUNTER 2019-02-13 21:12 | Inpatient (IN) ==
[2019-02-13] MEDS ORDERED: SODIUM CHLORIDE 0.9% 1000ML 1,000 ML IV SCH (22:15)
[2019-02-13] MEDS ORDERED: MoRPHine SULFATE 4 MG/ML 1 ML CARP\\VIAL IV STA (22:15)
[2019-02-13 22:33] LABS: Basophils # (auto) 0.02 K/uL (0-0.2); Basophils % (auto) 0.2 %; Eosinophils # (auto) 0.18 K/uL (0-0.5); Eosinophils % (auto) 2.1 %; Hematocrit (blood only) 32.9 % (37-47); Hemoglobin 11.1 g/dL (12.0-16.0); Immature Granulocytes # (auto) 0.01 K/uL (0.00-0.02); Immature Granulocytes % (auto) 0.1 %; Lymphocytes # (auto) 2.17 K/uL (1.2-3.4); Mean Corpuscular Hgb Conc 33.7 g/dL (32-36); Mean Corpuscular Volume 83.3 fL (80-100); Mean Platelet Volume 9.3 fL (7.4-10.4); Monocytes # (auto) 0.66 K/uL (0.11-0.59); Monocytes % (auto) 7.6 %; Neutrophils # (auto) 5.64 K/uL (1.4-6.5); Platelet Count 114 K/uL (130-400); RDW Coefficient of Variation 14.4 % (11.5-14.5); Red Blood Count 3.95 M/uL (4.2-5.4); White Blood Count 8.68 K/uL (4.8-10.8)
[2019-02-13 22:53] LABS: Albumin Level 3.1 gm/dl (3.4-5.0); BUN Creatinine Ratio 13.1 (10-20); Calcium 8.2 mg/dl (8.5-10.1); Creatinine Clr Calc Pharmacy 73.8 ml/min; Est GFR (African American) 72.9; Est GFR (Non-African American) 62.9; Potassium 4.1 mmol/L (3.5-5.1)
[2019-02-13 22:56] LABS: Albumin Globulin Ratio 0.8 (0.9-2); Bilirubin,Total 0.3 mg/dl (0.2-1); Globulin 4.1 gm/dl (2.5-4.0); Total Protein 7.2 gm/dl (6.4-8.2)
[2019-02-13] MEDS ORDERED: ACETAMINOPHEN 1,000 MG/100 ML VIAL IV STA (23:23)
--- NOTE | 2019-02-14 01:42 | Emergency Department Note ---
Entered by Gloria Shi acting as a scribe for History of Present Illness General Chief complaint: Seizure Stated complaint: SEIZURE, BACK SPASMS Source: patient History of Present Illness Onset (ago): hour(s) (earlier today) Location: head (general) Pain Consistency: + intermittent Maximum Pain Intensity: 9 Quality: + other (2 seizures) Associated symptoms: no chest pain and no shortness of breath The patient is a 48 year old female with a past medical history of thrombocytopenia, MENDEZ, diabetes, hypertension and bipolar who presents to the Emergency Room with complaints of 2 seizures. notes that today patient had an aura following which she had 2 seizures both which lasted about 2 minutes. She has returned to baseline. She follows with Yesenia Wayne and Dr. Briceno from neurology as she has had a previous stroke affecting her left side. She notes that she had an admission previously which they were unsure if it was a seizure and she has been seen here recently for a clear seizure and sent home without any medications. Patient does admit to a headache and chronic abdominal pain. No new weakness or numbness in her arms or legs. No chest pain or shortness of breath. Home Medications Home Medications Medication Instructions Recorded Confirmed Type alprazolam [Xanax] 0.5 mg PO UD PRN 10/02/18 02/13/19 History atenolol 100 mg PO BID 10/02/18 02/13/19 History atorvastatin [Lipitor] 40 mg PO DAILY 10/02/18 02/13/19 History dicyclomine 20 mg PO BID PRN 10/02/18 02/13/19 History furosemide [Lasix] 40 mg PO DAILY 10/02/18 02/13/19 History ibuprofen 600 mg PO UD PRN 10/02/18 02/13/19 History loratadine [Claritin] 10 mg PO DAILY 10/02/18 02/13/19 History losartan [Cozaar] 25 mg PO DAILY PRN 10/02/18 02/13/19 History magnesium oxide [MagOx] 400 mg PO DAILY 10/02/18 02/13/19 History meclizine 25 mg PO TID PRN 10/02/18 02/13/19 History metformin [Glucophage] 1,000 mg PO BIDM 10/02/18 02/13/19 History metoclopramide HCl [Reglan] 5 mg PO AC PRN 10/02/18 02/13/19 History omeprazole 20 mg PO BID 10/02/18 02/13/19 History ondansetron HCl [Zofran] 4 mg PO QID PRN 10/02/18 02/13/19 History potassium chloride 10 meq PO BID 10/02/18 02/13/19 History quetiapine [Seroquel] 50 mg PO HS 10/02/18 02/13/19 History quetiapine [Seroquel] 300 mg PO HS 10/02/18 02/13/19 History spironolactone [Aldactone] 50 mg PO DAILY 10/02/18 02/13/19 History trazodone 200 mg PO HS 10/02/18 02/13/19 History venlafaxine [Effexor XR] 37.5 mg PO DAILY 10/02/18 02/13/19 History gabapentin 300 mg PO TID 02/13/19 02/13/19 History hydrocodone-acetaminophen 1 tab PO Q6 PRN 02/13/19 02/13/19 History insulin regular human [Novolin R 0 unit CONTINUOUS SUBCUTANEOUS 02/13/19 02/13/19 History Regular U-100 Insuln] INFUSION DIRECTED Allergies Allergy/AdvReac Type Severity Reaction Status Date / Time naproxen Allergy Unknown BLEEDING Verified 02/13/19 23:06 Past Med/Surg History Medical History Thrombocytopenia T2DM (type 2 diabetes mellitus) (Chronic) GERD (gastroesophageal reflux disease) (Chronic) Bipolar disorder (Chronic) Chronic pain (Chronic) HTN (hypertension) (Chronic) HLD (hyperlipidemia) (Chronic) Depression (Chronic) DONNA (obstructive sleep apnea) (Chronic) Back pain (Chronic) Liver cirrhosis secondary to MENDEZ (Acute) H/O TIA (transient ischemic attack) and stroke History of hysterectomy Hypertension Liver cancer Seizure Stroke Vertigo Surgical History History of tubal ligation Family History Other No significant family history Social History Preferred Language: Hungarian Communication Ability: Effective Steward/Stewardess Tourist Class Required: No Beliefs That Will Affect Care: None Current Living Situation: Family Current Living Situation Comment: SON AND Feels Safe at Home: Yes Smoking Status: Never smoker Hx Alcohol Use: No Hx Substance Use: No Review of Systems See HPI for pertinent positives & negatives. and A total of 10 systems reviewed and were otherwise negative Physical Exam Vital Signs Vital Signs - 24 hr 02/13/19 21:21 02/13/19 21:30 02/13/19 21:39 Temperature 36.7 C Temperature Source Oral Sepsis Recent Fever Within 48 Hours No Sepsis New/Unexplained Change in Mental Status No Sepsis Action Taken by Nursing No Action Required Pulse Rate 85 79 82 Pulse Rate from SpO2 Sensor 80 81 Respiratory Rate 22 17 17 Blood Pressure 141/105 H 141/77 H Blood Pressure Mean 117 98 Pulse Oximetry 94 97 96 Oxygen Delivery Method Room Air 02/13/19 22:00 Temperature Temperature Source Sepsis Recent Fever Within 48 Hours Sepsis New/Unexplained Change in Mental Status Sepsis Action Taken by Nursing Pulse Rate 74 Pulse Rate from SpO2 Sensor 75 Respiratory Rate 23 Blood Pressure 129/86 Blood Pressure Mean 100 Pulse Oximetry 93 Oxygen Delivery Method GENERAL: Lying in bed chronically ill-appearing disheveled nontoxic EYE EXAM: normal conjunctiva. PERRL and EOM's grossly intact. OROPHARYNX: no exudate, no erythema, lips, buccal mucosa, and tongue normal and mucous membranes are moist NECK: supple, no nuchal rigidity, no adenopathy, non-tender LUNGS: Clear to auscultation. Normal chest wall mechanics HEART: no murmurs, S1 normal and S2 normal ABDOMEN: abdomen soft, non-tender, normo-active bowel sounds, no masses, no rebound or guarding. BACK: Back is symmetrical on inspection and there is no deformity, no midline tenderness, no CVA tenderness. SKIN: no rashes and no bruising UPPER EXTREMITIES: upper extremities are grossly normal. LOWER EXTREMITIES: No pitting edema. NEURO EXAM: Normal sensorium, cranial nerves II-XII grossly intact, normal speech, weakness in the left upper and left lower extremity which is old per p atient 4 out of 5. No weakness in the right upper extremity or right lower extremity as they are 5 out of 5. Course ED COURSE: Vital signs were reviewed and showed to be normal. The patients medical record was reviewed The above diagnostic studies were performed and reviewed. ED treatments and interventions as stated above. 2204: The patient was evaluated in room B05. A complete history and physical examination was performed. 0032: Upon reevaluation, the patient is resting more comfortably. I spoke with Dr. Bradford-[facility] Hospitalist who agrees to take the patient for further evaluation. I discussed my findings with the patient and she understands and agrees with the treatment plan. Based on the patients age, coexisting illnesses, exam and lab findings the decision to treat as an inpatient was made. The patient remained stable while under my care. The patient will be evaluated for further management. Administered Medications Discontinued Medications Sodium Chloride (Nss 1000ml) 1,000 mls @ 999 mls/hr IV .Q1H1M MARCIA Stop: 02/13/19 23:15 Last Infusion: 02/13/19 23:47 Dose: 0 mls/hr Documented by: [id number] Admin: 02/13/19 22:28 Dose: 999 mls/hr Documented by: [id number] Acetaminophen (Ofirmev) 1,000 mg in 100 mls @ 400 mls/hr IV NOW STA Stop: 02/13/19 23:37 Last Infusion: 02/14/19 00:07 Dose: 0 mls/hr Documented by: [id number] Admin: 02/13/19 23:47 Dose: 400 mls/hr Documented by: [id number] Levetiracetam 1,000 mg/ (Dextrose) 110 mls @ 440 mls/hr IV NOW STA Stop: 02/14/19 00:37 Last Admin: 02/14/19 00:49 Dose: 440 mls/hr Documented by: [id number] Morphine Sulfate (Morphine Sulfate) 4 mg IV NOW STA Stop: 02/13/19 22:16 Last Admin: 02/13/19 22:27 Dose: 4 mg Documented by: [id number] Medical Decision Making Differential Diagnosis Differential diagnosis includes etiologies such as infection, hypoglycemia, electrolyte abnormalities, cardiac sources, intracerebral event, trauma, toxicologic, neurologic, as well as others were entertained. Medical Records Attestation: I reviewed the patient's medical records. Home Medications Current Medication List: was personally reviewed by me Laboratory Data Attestation: I reviewed the patient's lab results. Result diagrams: 02/13/19 21:52 02/13/19 21:52 Lab Results 02/13/19 02/13/19 Range/Units 21:52 21:52 WBC 8.68 (4.8-10.8) K/uL RBC 3.95 L (4.2-5.4) M/uL Hgb 11.1 L (12.0-16.0) g/dL Hct 32.9 L (37-47) % MCV 83.3 (80-100) fL MCH 28.1 (25-34) pg MCHC 33.7 (32-36) g/dL RDW Std Deviation 44.0 (36.4-46.3) fL RDW Coeff of Bailey 14.4 (11.5-14.5) % Plt Count 114 L (130-400) K/uL MPV 9.3 (7.4-10.4) fL Immature Gran % (Auto) 0.1 % Neut % (Auto) 65.0 % Lymph % (Auto) 25.0 % Teton % (Auto) 7.6 % Eos % (Auto) 2.1 % Baso % (Auto) 0.2 % Immature Gran # (Auto) 0.01 (0.00-0.02) K/uL Neut # (Auto) 5.64 (1.4-6.5) K/uL Lymph # (Auto) 2.17 (1.2-3.4) K/uL Teton # (Auto) 0.66 H (0.11-0.59) K/uL Eos # (Auto) 0.18 (0-0.5) K/uL Baso # (Auto) 0.02 (0-0.2) K/uL Sodium 141 (136-145) mmol/L Potassium 4.1 (3.5-5.1) mmol/L Chloride 104 (98-107) mmol/L Carbon Dioxide 29 (21-32) mmol/L Anion Gap 8.0 (3-11) BUN 14 (7-18) mg/dl Creatinine 1.06 (0.6-1.2) mg/dl Est Cr Clr Drug Dosing 73.8 ml/min Est GFR ( Amer) 72.9 Est GFR (Non-Af Amer) 62.9 BUN/Creatinine Ratio 13.1 (10-20) Glucose 123 H (70-99) mg/dl Calcium 8.2 L (8.5-10.1) mg/dl Total Bilirubin 0.3 (0.2-1) mg/dl AST 29 (15-37) U/L ALT 11 L (12-78) U/L Alkaline Phosphatase 105 (45-117) U/L Total Protein 7.2 (6.4-8.2) gm/dl Albumin 3.1 L (3.4-5.0) gm/dl Globulin 4.1 H (2.5-4.0) gm/dl Albumin/Globulin Ratio 0.8 L (0.9-2) Imaging Data Radiologist's Impression: [facility]: CT HEAD: Comparison with 01/19/19 No ICH, mass effect or edema. No evidence of acute cortical stroke. Visualized sinuses and mastoid air cells are clear. Radiologist: Lanre Dunne M.D. Study ready at 23:47 and initial results transmitted at 00:13. ECG Data Attestation: I personally reviewed and interpreted this ECG as follows: Indication: other (seizure) Rate (beats per minute): 73 Rhythm: sinus rhythm Findings: + other (t wave flattening in anterior and lateral leads) Comparison ECG Date: from (01/19/2019) Change: no significant change Blood Pressure Blood Pressure Findings: Normal blood pressure MDM Narrative Patient is a 48-year-old female with a past medical history of nonalcoholic cirrhosis, hepatocellular carcinoma, thrombocytopenia, diabetes, hypertension and bipolar the presents the ER for 2 seizures. Per review of the notes she has had a seizure recently for which she was discharged with. She has had a previous MRI and EEG back in [id number]. IV was established blood work was obtained. Labs show no significant leukocytosis but a mild anemia. BMP along with LFTs bilirubin was unremarkable. CT of the head shows no acute pathology. EKG was nondiagnostic/unchanged from previous. Discussed case with neurology due to her comp gated history and they recommended IV Keppra and observation overnight with MRI. Patient was updated bedside. She was given 1 dose of IV narcotics followed by Tylenol for headache. Discussed with the hospitalist for observation. 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, Anemia Patient Disposition: Admitted As Inpatient Discharge Instructions Interventions: ED Discharge Assessment Last Done: 02/14/19 01:29 Discharge Problem: Epileptic seizure Qualifiers: Epilepsy type: unspecified Intractability: not intractable Status epilepticus: without status epilepticus Qualified Code(s): G40.909 - Epilepsy, unspecified, not intractable, without status epilepticus Back pain Qualifiers: Back pain location: low back pain Chronicity: chronic Back pain laterality: unspecified Sciatica presence: without sciatica Qualified Code(s): M54.5 - Low back pain Anemia Qualifiers: Anemia type: unspecified type Qualified Code(s): D64.9 - Anemia, unspecified The scribe's documentation has been prepared under my direction and personally reviewed by me in its entirety. I confirm that the note above accurately reflects all work, treatment, procedures, and medical decision making performed by me.
[2019-02-14] MEDS ORDERED: ACETAMINOPHEN 325 MG TAB PO PRN (02:00)
[2019-02-14] MEDS ORDERED: HYDROCODONE/ACETAMOPHEN 5/325MG TAB PO PRN (02:00)
[2019-02-14] MEDS ORDERED: METOCLOPRAMIDE HCL 5 MG TABLET PO PRN (02:00)
[2019-02-14] MEDS ORDERED: MECLIZINE HCL 25 MG TAB PO PRN (02:00)
[2019-02-14] MEDS ORDERED: DICYCLOMINE HCL 20 MG TAB PO PRN (02:00)
[2019-02-14] MEDS ORDERED: LOSARTAN POTASSIUM 25 MG TAB PO PRN (02:00)
[2019-02-14] MEDS ORDERED: ONDANSETRON INJ 2 MG/ML 2 ML VIAL IV PRN (02:00)
[2019-02-14] MEDS ORDERED: ALPRAZolam 0.5 MG TABLET PO PRN (02:00)
[2019-02-14] MEDS ORDERED: HYDROmorphone INJ 0.5 MG/0.5 ML SYR IV STA (02:00)
[2019-02-14] MEDS ORDERED: NITROGLYCERIN SL 0.4 MG/TAB TAB SL PRN (02:00)
[2019-02-14] MEDS ORDERED: SODIUM CHLORIDE 0.9% 1000ML 1,000 ML IV SCH (02:00)
[2019-02-14] MEDS ORDERED: PHARMACY GLYCEMIC MGMT CONSULT PRN (02:12)
[2019-02-14] MEDS ORDERED: CARBOHYDRATES FOR HYPOGLYCEMIA PO PRN (02:30)
[2019-02-14] MEDS ORDERED: DEXTROSE 50% 50 ML SYRINGE IV PRN (02:30)
[2019-02-14] MEDS ORDERED: GLUCOSE 40% GEL 15 GM TUBE PO PRN (02:30)
[2019-02-14] MEDS ORDERED: GLUCAGON FOR INJ 1 MG VIAL SQ PRN (02:30)
[2019-02-14] MEDS ORDERED: GLUCOSE 10 TABS/TUBE PO PRN (02:30)
--- NOTE | 2019-02-14 04:53 | History and Physical Report ---
DATE OF ADMISSION: 02/14/2019 CHIEF COMPLAINT: Seizures. HISTORY OF PRESENT ILLNESS: A 48-year-old female with past medical history significant for insulin-dependent diabetes type 2, on insulin pump, MENDEZ, cirrhosis, chronic pain, lumbago, obstructive sleep apnea on CPAP, bipolar disorder, hypertension, hyperlipidemia, hx of mesenteric lymphadenitis,history of liver lesions, used to get MRI every 2 months, last MRI was November 2018 and now they think it's hepatocellular carcinoma and she has an appointment next week at [facility] for injection of the chemo into the lesions, history of seizures, on gabapentin, presents with couple of episodes of seizures last evening around 8:00 p.m., when she taking her medications when she suddenly felt that she is going to pass out and she asked her family to take her to chair , she sat on the chair and she don't remember anything and she was told she shook her body and she bit her tongue and she had incontinence of bowel and bladder. It lasted for few minutes and after some time, it happened again and she was not as much confused as previous seizures and she was brought in here. Currently, she is alert and awake and oriented. Hemodynamics are stable. ER physician talked to neurologist supersonic engineer and advised to give Keppra and get MRI scan and the EEGs. She is getting loaded with 1 g of Keppra currently. The patient says that she has some generalized body aches because of her seizures and requests for pain medication. Has some headache, no blurred vision, no sore throat, no runny nose, no difficulty swallowing. Appetite is okay. She is trying to lose weight, sleeps okay. No chest pain or shortness of breath. No cough, has abdominal pain in right upper quadrant. No diarrhea, no constipation, no blood in the stools or black stools. No hematuria or dysuria. No swelling in the legs, no rash. Lately she is using cane while ambulating. Lives with her and son. ALLERGIES: ALEVE. PAST MEDICAL HISTORY: As mentioned above. PAST SURGICAL HISTORY: Colonoscopy, EGD with endoscopic ultrasound, hysteroscopy, lumbar spine injection, ligation of oviduct. MEDICATIONS: The patient currently on hydrocodone/acetaminophen 5/325 mg one tablet every 6 hours p.r.n., gabapentin 300 mg p.o. t.i.d., Ativan 1 tablet prior to MRI, trazodone 200 mg p.o. at bedtime, Bentyl 20 mg p.o. b.i.d. p.r.n., Effexor XR 37.5 mg p.o. daily, losartan 25 mg p.o. daily, Seroquel 350 mg p.o. at bedtime, magnesium oxide 400 mg p.o. daily, Zanaflex 1 tablet 4 mg at bedtime, potassium chloride 20 mEq p.o. b.i.d., Lasix 40 mg p.o. daily, metformin 1000 mg p.o. b.i.d., Reglan 5 mg p.o. a.c. p.r.n., spironolactone 50 mg p.o. daily, insulin pump, omeprazole 20 mg p.o. b.i.d., Zofran 4 mg p.o. q. 6 hours p.r.n., Lipitor 40 mg p.o. daily, Claritin 10 mg p.o. daily, atenolol 100 mg p.o. b.i.d., ibuprofen p.r.n., meclizine 25 mg p.o. t.i.d. p.r.n., Lantus 15 units daily in case of pump malfunctions, MiraLax p.r.n. FAMILY HISTORY: Significant for mother had COPD, eye problems, heart disorder, CAD Status post CABG, depression, emphysema. Father had stroke, passed at 32. He had CHF, eye problems, diabetes. Brother has diabetes, hypertension. SOCIAL HISTORY: , lives with her and son. No smoking. No drug use. No alcohol use. REVIEW OF SYMPTOMS: As per HPI. Rest of review of symptoms negative. PHYSICAL EXAMINATION: GENERAL: The patient is obese, not in acute distress. VITAL SIGNS: Temperature 36.7, pulse 74, respiratory rate 20, blood pressure 138/88, oxygen 94% room air. HEENT: No pallor, no icterus. Pupils equal, round, and reactive to light. NECK: No JVD, no neck masses, no carotid bruits. CARDIOVASCULAR: S1, S2 heard, regular rate and rhythm, no murmur, no gallop. RESPIRATORY SYSTEM: Normal AP diameter. No accessory muscle use. No wheezing, no crackles. ABDOMEN: Soft, bowel sounds present, nontender. No distention. CENTRAL NERVOUS SYSTEM: Cranial nerves II-XII grossly intact. Nonfocal. EXTREMITIES: No edema, no erythema. LABORATORY DATA: WBC 8.6, hemoglobin 11.1, hematocrit 32.9, platelets 114. Sodium 141, potassium 4.1, chloride 104, bicarbonate 29, BUN 14, creatinine 1.06, glucose 123, calcium 8.2, total bilirubin 0.3, AST 29, ALT 11, alkaline phosphatase 105. CT of the head unofficial report unremarkable. EKG: Normal sinus rhythm with rate of 73, nonspecific T-wave abnormality, no significant change was found. ASSESSMENT AND PLAN: This is a 48-year-old female who presents with seizures. 1. Seizures, history of seizures in the past, but EEG was unremarkable in the past. Currently, on 300mg p.o.tid, which we will continue. ER doctor called neurologist supersonic engineer and advised for Keppra. We will give 1 g Keppra now and then 500 mg b.i.d. Follow the EEG and MRI scans. Monitor in tele floor. Neurology consult. 2. liver lesions. Follows with [facility] at [place]. She gets MRI scan every 2 months, last done was in November and she is following next week for possible injection of chemo into the lesions. 3. MENDEZ/Cirrhosis, follows with [facility], and Aldactone and Lasix with potassium supplement. Low sodium diet. 3. Diabetes, on insulin pump. The patient will continue. I will place on sliding scale and consult glycemic pharmacy. 4. Hypertension, on atenolol. We will monitor the blood pressure. 5. Hyperlipidemia, on statin. 6. Bipolar disorder, on venlafaxine, trazodone, Seroquel. 7. Sleep apnea. CPAP at bedtime. 8. Chronic pain. Continue home pain medications of gabapentin,Zanaflex, Percocet prn 9. Thrombocytopenia secondary to cirrhosis. We will follow the labs. 10. Deep venous thrombosis prophylaxis, sequential compression devices for now. DISPOSITION: Close monitoring in the med/surg tele. Level 1 full code. MTDD
[2019-02-14 07:19] LABS: Hematocrit (blood only) 31.6 % (37-47); Hemoglobin 10.2 g/dL (12.0-16.0); Mean Corpuscular Hgb Conc 32.3 g/dL (32-36); Mean Corpuscular Volume 84.9 fL (80-100); RDW Coefficient of Variation 14.5 % (11.5-14.5); RDW Standard Deviation 44.9 fL (36.4-46.3); Red Blood Count 3.72 M/uL (4.2-5.4)
[2019-02-14] MEDS: GABAPENTIN 300 MG CAP PO SCH ×2 (07:28→13:38)
[2019-02-14] MEDS ORDERED: INSULIN ASPART 100 UNITS/ML 3 ML PEN SC SCH (07:30)
[2019-02-14 07:43] LABS: BUN Creatinine Ratio 16.6 (10-20); Calcium 7.6 mg/dl (8.5-10.1); Creatinine Clr Calc Pharmacy 85.6 ml/min; Est GFR (African American) 84.3; Est GFR (Non-African American) 72.8; Magnesium 1.8 mg/dl (1.8-2.4); Potassium 3.6 mmol/L (3.5-5.1)
[2019-02-14 07:59] LABS: Basophils # (auto) 0.03 K/uL (0-0.2); Basophils % (auto) 0.5 %; Eosinophils # (auto) 0.15 K/uL (0-0.5); Eosinophils % (auto) 2.3 %; Immature Granulocytes # (auto) 0.01 K/uL (0.00-0.02); Immature Granulocytes % (auto) 0.2 %; Lymphocytes # (auto) 2.05 K/uL (1.2-3.4); Lymphocytes % (auto) 31.5 %; Mean Platelet Volume 8.7 fL (7.4-10.4); Monocytes # (auto) 0.45 K/uL (0.11-0.59); Monocytes % (auto) 6.9 %; Neutrophils # (auto) 3.81 K/uL (1.4-6.5); Neutrophils % (auto) 58.6 %; Platelet Count 92 K/uL (130-400); Platelet Estimate Decreased (Normal)
[2019-02-14] MEDS ORDERED: HumuLIN-R 10 ML VIAL SC PRN (08:15)
[2019-02-14 08:28] LABS: Estimated Average Glucose 154 mg/dl
[2019-02-14] MEDS: INSULIN REGULAR PUMP SCH ×2 (08:30→11:10)
[2019-02-14] MEDS ORDERED: VENLAFAXINE HCL XR 37.5 MG CAPXR PO SCH (09:00)
[2019-02-14] MEDS ORDERED: SPIRONOLACTONE 25 MG TAB PO SCH (09:00)
[2019-02-14] MEDS ORDERED: LORATADINE 10 MG TAB PO SCH (09:00)
[2019-02-14] MEDS ORDERED: ATORVASTATIN 40 MG TAB PO SCH (09:00)
[2019-02-14] MEDS ORDERED: PANTOprazole 40 MG TAB PO SCH (09:00)
[2019-02-14] MEDS ORDERED: ATENOLOL 50 MG TABLET PO SCH (09:00)
[2019-02-14] MEDS ORDERED: FUROSEMIDE 40 MG TAB PO SCH (09:00)
[2019-02-14] MEDS ORDERED: MAGNESIUM OXIDE 400 MG TAB PO SCH (09:00)
[2019-02-14] MEDS ORDERED: POTASSIUM CHLORIDE 10 MEQ TABCR PO SCH (09:00)
--- NOTE | 2019-02-14 09:39 | CT Scan Report ---
CT OF THE HEAD WITHOUT CONTRAST CLINICAL HISTORY: Fall. Seizure. COMPARISON STUDY: Head CT January 19, 2019. CT DOSE: 537.48 mGy.cm TECHNIQUE: Helical axial images of the head were obtained without IV contrast. Automated exposure con trol was utilized for the study. A dose lowering technique was utilized adhering to the principles o f ALARA. FINDINGS: No acute intracranial hemorrhage, midline shift or mass effect is present. The ventricular system is unremarkable. The basilar cisterns are patent. No extra-axial collections are present. Ther e are no findings to suggest acute dural sinus thrombosis or acute territorial infarct. No significan t calvarial abnormalities are present. Visualized portions of the sinuses and mastoid air cells are c lear. IMPRESSION: No acute intracranial findings. Electronically signed by: Pieter Garcia M.D. 02/14/2019 9:38 AM
[2019-02-14] MEDS ORDERED: GADOBUTROL 65ML VIAL IV PRN (10:37)
--- NOTE | 2019-02-14 10:57 | Magnetic Resonance Report ---
MR brain seizure wo/w con CLINICAL HISTORY: seizure. liver cancer mental status change COMPARISON STUDY: 07/16/2016 TECHNIQUE: Utilizing a 1.5 Maggie magnet and dedicated coil, multiplanar, multiecho imaging of the br ain was performed pre and postcontrast administration. IV administration of 8 mL of Gadavist contras t was uneventful. Thin cut coronal T2 imaging was performed according to seizure protocol. FINDINGS: Diffusion-weighted images are normal no evidence for an acute ischemic event. Signal characteristics of the cerebellar as well as cerebral hemispheres are unremarkable. Post contrast enhanced images are considered negative for enhancing lesion. IMPRESSION: Normal study. The above report was generated using voice recognition software. It may contain grammatical, syntax or spelling errors. Electronically signed by: Clarence Taylor M.D. 02/14/2019 10:56 AM
--- NOTE | 2019-02-14 11:28 | Pharmacy Report ---
Glycemic Control Consultation - Date of Service February 14, 2019 - Scope Scope: Glycemic Pharmacist consulted by Dr Bradford on 02/14/19 for glycemic control and to write orders per [facility] inpatient glycemic control protocol - Objective Weight: 99.3 kg Accuchecks BSG (last 24hrs): 02/13/19 02/14/19 02/14/19 21:52 01:57 06:56 Glucose 123 H 67 L POC Glucose 112 H 02/14/19 02/14/19 07:38 10:59 Glucose POC Glucose 80 87 Laboratory Data (last 24hrs): 02/13/19 02/14/19 21:52 06:56 Potassium 4.1 3.6 Carbon Dioxide 29 27 Anion Gap 8.0 9.0 Creatinine 1.06 0.94 Est Cr Clr Drug Dosing 73.8 85.6 HbA1c: Hemoglobin A1c 7.0 % (4.5-5.6) H 02/14/19 06:56 - Recent Pertinent Medications Outpatient Anti-diabetic Regimen: * Regular insulin insulin pump * basal = 130 units/day * CF = 5 * CR = 3 * A1c = 7.0 % The patient is currently receiving: * Insulin pump Risk Factors for Insulin Resistance: * IVF: Keppra IV BID * Diet: T2DM - Assessment & Plan Assessment & Plan: ASSESSMENT: * Ms Tyson is a T2DM who presents with a seizure. She is managed by [facility] clinic - her HbA1C is much, much improved when using the insulin pump per patient report. * Patient's pump settings is as above. Concern about hypoglycemia with aggressive pump settings. Per patient she is observation and should be going home today. SHE DECLINES SETTING A TEMP BASAL RATE. Per patient she will eat gustavo crackers and drink soda if necessary. Changed diet to heart healthy. * Pt is to manage BSGs with insulin pump per outpatient settings. * RN will have patient read and sign agreement [id number] Insulin Pump Therapy Patient Agreement. * RN will provide and explain form [id number] Flowsheet for Patient * Patient will document their insulin dose given on [id number] which is kept at the bedside, available to caregivers upon request, and which becomes part of the permanent medical record. If at any time the patients condition evidences that he/she is not able to manage the insulin pump (i.e. frequent hypo/hyperglycemia) Pharmacy will assume glycemic control by discontinuing the pump & managing with SQ basal bolus insulin regimen for the interim. PLAN FOR INPATIENT GLYCEMIC CONTROL: * Continue insulin pump PLAN FOR INPATIENT GLYCEMIC CONTROL: * Continuing insulin pump OUTPATIENT RECOMMENDATIONS * Continue current management and f/u with outpatient [facility] clinic. Thank you.
--- NOTE | 2019-02-14 12:59 | Electroencephalogram ---
EEG Procedure Note Date of Service February 14, 2019 Start / End Times Start Time: 832 End Time: 0853 Referring Physician Yesenia Loaiza MD History Possible seizures Home Medication List Home Medications Medication Instructions Recorded Confirmed Type alprazolam [Xanax] 0.5 mg PO UD PRN 10/02/18 02/13/19 History atenolol 100 mg PO BID 10/02/18 02/13/19 History atorvastatin [Lipitor] 40 mg PO DAILY 10/02/18 02/13/19 History dicyclomine 20 mg PO BID PRN 10/02/18 02/13/19 History furosemide [Lasix] 40 mg PO DAILY 10/02/18 02/13/19 History ibuprofen 600 mg PO UD PRN 10/02/18 02/13/19 History loratadine [Claritin] 10 mg PO DAILY 10/02/18 02/13/19 History losartan [Cozaar] 25 mg PO DAILY PRN 10/02/18 02/13/19 History magnesium oxide [MagOx] 400 mg PO DAILY 10/02/18 02/13/19 History meclizine 25 mg PO TID PRN 10/02/18 02/13/19 History metformin [Glucophage] 1,000 mg PO BIDM 10/02/18 02/13/19 History metoclopramide HCl [Reglan] 5 mg PO AC PRN 10/02/18 02/13/19 History omeprazole 20 mg PO BID 10/02/18 02/13/19 History ondansetron HCl [Zofran] 4 mg PO QID PRN 10/02/18 02/13/19 History potassium chloride 10 meq PO BID 10/02/18 02/13/19 History quetiapine [Seroquel] 50 mg PO HS 10/02/18 02/13/19 History quetiapine [Seroquel] 300 mg PO HS 10/02/18 02/13/19 History spironolactone [Aldactone] 50 mg PO DAILY 10/02/18 02/13/19 History trazodone 200 mg PO HS 10/02/18 02/13/19 History venlafaxine [Effexor XR] 37.5 mg PO DAILY 10/02/18 02/13/19 History gabapentin 300 mg PO TID 02/13/19 02/13/19 History hydrocodone-acetaminophen 1 tab PO Q6 PRN 02/13/19 02/13/19 History insulin regular human [Novolin R 0 unit CONTINUOUS SUBCUTANEOUS 02/13/19 02/13/19 History Regular U-100 Insuln] INFUSION DIRECTED Inpatient Medication List Hydrocodone Bitart/Acetaminophen ([place] 5/325) 1 tab PO Q6 PRN PRN Reason: Pain Stop: 02/28/19 01:59 Last Admin: 02/14/19 07:37 Dose: 1 tab Documented by: [id number] Atenolol (Tenormin) 100 mg PO BID MARCIA Stop: 03/16/19 08:59 Last Admin: 02/14/19 07:27 Dose: 100 mg Documented by: [id number] Atorvastatin Calcium (Lipitor) 40 mg PO DAILY MARCIA Stop: 03/16/19 08:59 Last Admin: 02/14/19 07:28 Dose: 40 mg Documented by: [id number] Furosemide (Lasix) 40 mg PO DAILY MARCIA Stop: 03/16/19 08:59 Last Admin: 02/14/19 07:28 Dose: 40 mg Documented by: [id number] Gabapentin (Neurontin) 300 mg PO TID MARCIA Stop: 03/16/19 08:59 Last Admin: 02/14/19 07:28 Dose: 300 mg Documented by: [id number] Gadobutrol (Gadavist 65ml) 9.5 ml IV ONCE PRN PRN Reason: Interaction Checking Stop: 02/18/19 10:36 Last Admin: 02/14/19 10:37 Dose: 9.5 ml Documented by: [id number] Sodium Chloride (Nss 1000ml) 1,000 mls @ 80 mls/hr IV .[id number] MARCIA Stop: 03/16/19 16:00 Last Infusion: 02/14/19 10:57 Dose: 80 mls/hr Documented by: [id number] Infusion: 02/14/19 09:51 Dose: 0 mls/hr Documented by: [id number] Admin: 02/14/19 02:31 Dose: 80 mls/hr Documented by: [id number] Levetiracetam 500 mg/ Dextrose 105 mls @ 420 mls/hr IV Q12H MARCIA Stop: 03/16/19 08:59 Last Infusion: 02/14/19 07:48 Dose: 0 mls/hr Documented by: [id number] Admin: 02/14/19 07:29 Dose: 420 mls/hr Documented by: [id number] Insulin Human Regular (Insulin Regular Pump) 1 ea N/A ACHS [facility]; Protocol Stop: 03/16/19 08:29 Last Admin: 02/14/19 11:10 Dose: Not Given Documented by: [id number] Cosigned by: [id number] Admin: 02/14/19 08:30 Dose: 1 ea Documented by: [id number] Cosigned by: [id number] Loratadine (Claritin) 10 mg PO DAILY [facility] Stop: 03/16/19 08:59 Last Admin: 02/14/19 07:28 Dose: Not Given Documented by: [id number] Magnesium Oxide (Mag-Ox) 400 mg PO DAILY [facility] Stop: 03/16/19 08:59 Last Admin: 02/14/19 07:28 Dose: 400 mg Documented by: [id number] Pantoprazole Sodium (Protonix) 40 mg PO BID [facility] Stop: 03/16/19 08:59 Last Admin: 02/14/19 07:27 Dose: 40 mg Documented by: [id number] Potassium Chloride (Klor-Con M10) 10 meq PO BID [facility] Stop: 03/16/19 08:59 Last Admin: 02/14/19 07:28 Dose: 10 meq Documented by: [id number] Spironolactone (Aldactone) 50 mg PO DAILY [facility] Stop: 03/16/19 08:59 Last Admin: 02/14/19 07:29 Dose: 50 mg Documented by: [id number] Venlafaxine HCl (Effexor Extended Release) 37.5 mg PO DAILY [facility] Stop: 03/16/19 08:59 Last Admin: 02/14/19 07:28 Dose: 37.5 mg Documented by: [id number] Discontinued Medications Alprazolam (Xanax) 0.5 mg PO UD PRN PRN Reason: ANXIETY PRIOR TO MRI Stop: 02/14/19 11:00 Last Admin: 02/14/19 09:39 Dose: 0.5 mg Documented by: [id number] Hydromorphone HCl (Dilaudid) 0.5 mg IV NOW STA Stop: 02/14/19 02:01 Last Admin: 02/14/19 02:30 Dose: 0.5 mg Documented by: [id number] Sodium Chloride (Nss 1000ml) 1,000 mls @ 999 mls/hr IV .Q1H1M MARCIA Stop: 02/13/19 23:15 Last Infusion: 02/13/19 23:47 Dose: 0 mls/hr Documented by: [id number] Admin: 02/13/19 22:28 Dose: 999 mls/hr Documented by: [id number] Acetaminophen (Ofirmev) 1,000 mg in 100 mls @ 400 mls/hr IV NOW STA Stop: 02/13/19 23:37 Last Infusion: 02/14/19 00:07 Dose: 0 mls/hr Documented by: [id number] Admin: 02/13/19 23:47 Dose: 400 mls/hr Documented by: [id number] Levetiracetam 1,000 mg/ (Dextrose) 110 mls @ 440 mls/hr IV NOW STA Stop: 02/14/19 00:37 Last Infusion: 02/14/19 02:02 Dose: 0 mls/hr Documented by: [id number] Admin: 02/14/19 00:49 Dose: 440 mls/hr Documented by: [id number] Insulin Aspart (Novolog Flexpen) 0 units SC ACHS MARCIA Stop: 03/16/19 07:29 Last Admin: 02/14/19 07:39 Dose: Not Given Documented by: [id number] Cosigned by: [id number] Morphine Sulfate (Morphine Sulfate) 4 mg IV NOW STA Stop: 02/13/19 22:16 Last Admin: 02/13/19 22:27 Dose: 4 mg Documented by: [id number] Description This is a 21 electrode EEG with a single channel dedicated to limited EKG. The electrodes were placed in accordance with the International 10-20 system. This EEG was obtained during wakefulness with very brief duration drowsiness and was recorded on video. Photic stimulation was performed. Overall the tracing is of good technical quality with few or no muscle movement artifacts During wakefulness there is evidence for a normal background rhythm in the alpha range of up to 12 Hz and maximum frequency of up to 40 V maximum amplitude. This is maximum and posterior head regions and bilaterally symmetrical. Polymorphic mid to upper frequency modest voltage theta activity is seen over the central regions predominantly in a symmetrical fashion Beta activity is seen bifrontally Very brief duration drowsiness is accompanied by no important electroencephalographic Photic stimulation provokes a minimal driving response without a photo myogenic a photoparoxysmal component Interpretation This EEG is essentially normal during wakefulness without evidence for focal or generalized encephalopathy and without evidence for potentially epileptogenic activity. Brief duration drowsiness is not accompanied by any significant electroencephalographic changes Clinical Correlation This is a normal EEG without evidence generalized or focal encephalopathy or evidence for potentially epileptogenic activity but does not exclude the diagnosis of a seizure disorder and clinical correlation is required. Venu Briceno MD
--- NOTE | 2019-02-14 13:56 | Neurology Consultation ---
Date of Consultation February 14, 2019 Assessment & Plan (1) Epileptic seizure: 1. MRI brain - lesions or findings of stroke- no need to have out patient MRI previously scheduled 2. EEG- no seizure focus 3. Keppra 500 mg BID continue 4. gabepentin 300 mg TID- continue for now 5. no driving for 6 months post seizure event starts the 6 months with new seizure 6. no swimming bathing alone, no heights 7. follow up as out patient with hem/onc in [place] for liver disease 8. unable to start anitplt due to low platlets at this time 9. no cardio vascular work up done here or outpatient- no stroke on MRI 10. 72 hour EEG as outpatient or may need LTM to evaluate for seizures/vs /pseudoseizures neurology in 4-6 weeks after discharge Yesenia Wayne PAC schedule. Supervising Physician Co-Signing Physician Notes I have seen and discussed above patient with Dr Yesenia Loaiza, neurology. PT seen and examined. I discussed with Dr. Briceno who sees pt as an outpt. Pt gives hx of 2 gtc sz yesterday. Glucose was nml on admission.Pt given keppra in ER. Feels mildly sleepy. EEG normal. Pt gives hx of stroke with residual L hemiparesis, although MRI brain is normal. Exam notable for mild L arm, leg weakness with L drift without pronation and with symmetrical KAM. Imp, sz by hx. Continue Keppra, dc pt on Keppra 500 mg twice a day. There has been some question about non-electrical events. Ambulatory EEG will be done as outpt. MD Preston History of Present Illness Reason for Consultation: Seizures Requesting Physician: Maria Teresa Egan MD Attending Physician: Maria Teresa Egan MD History of Present Illness Carmne is a 48 year old female with PMH - insulin-dependent DM2, on insulin pump, MENDEZ, cirrhosis, chronic pain, lumbago, DONNA on CPAP, bipolar disorder, HTN, HLD, hx of mesenteric lymphadenitis,history of liver lesions, used to get MRI every 2 months, last MRI was November 2018 and now they think it's hepatocellular carcinoma and she has an appointment with [facility] for injection of the chemo into the lesions, history of seizures, on gabapentin, presents with couple of episodes of seizures last evening around 8:00 p.m., when she taking her medications when she suddenly felt that she is going to pass out and she asked her family to take her to chair , she sat on the chair and she don't remember anything and she was told she shook her body and she bit her tongue and she had incontinence of bowel and bladder. It lasted for few minutes and after some time, it happened again and she was not as much confused as previous seizures and she was brought in here. She was given Keppra 1g and continued on Keppra 500 mg BID. She has some generalized body aches because of her seizures and requests for pain medication. She is also still on gabapentin. She was sche duled for an outpatient MRI and 72 hour EEG which was not done. denies CP, SOB, abdominal pain (no new ongoing chronic liver tenderness), one sided weakness, numbness tingling, N, V, vision changes, swallowing issues. Allergies Allergy/AdvReac Type Severity Reaction Status Date / Time naproxen Allergy Unknown BLEEDING Verified 02/13/19 23:06 Home Medications Home Medications Medication Instructions Recorded Confirmed Type alprazolam [Xanax] 0.5 mg PO UD PRN 10/02/18 02/13/19 History atenolol 100 mg PO BID 10/02/18 02/13/19 History atorvastatin [Lipitor] 40 mg PO DAILY 10/02/18 02/13/19 History dicyclomine 20 mg PO BID PRN 10/02/18 02/13/19 History furosemide [Lasix] 40 mg PO DAILY 10/02/18 02/13/19 History ibuprofen 600 mg PO UD PRN 10/02/18 02/13/19 History loratadine [Claritin] 10 mg PO DAILY 10/02/18 02/13/19 History losartan [Cozaar] 25 mg PO DAILY PRN 10/02/18 02/13/19 History magnesium oxide [MagOx] 400 mg PO DAILY 10/02/18 02/13/19 History meclizine 25 mg PO TID PRN 10/02/18 02/13/19 History metformin [Glucophage] 1,000 mg PO BIDM 10/02/18 02/13/19 History metoclopramide HCl [Reglan] 5 mg PO AC PRN 10/02/18 02/13/19 History omeprazole 20 mg PO BID 10/02/18 02/13/19 History ondansetron HCl [Zofran] 4 mg PO QID PRN 10/02/18 02/13/19 History potassium chloride 10 meq PO BID 10/02/18 02/13/19 History quetiapine [Seroquel] 50 mg PO HS 10/02/18 02/13/19 History quetiapine [Seroquel] 300 mg PO HS 10/02/18 02/13/19 History spironolactone [Aldactone] 50 mg PO DAILY 10/02/18 02/13/19 History trazodone 200 mg PO HS 10/02/18 02/13/19 History venlafaxine [Effexor XR] 37.5 mg PO DAILY 10/02/18 02/13/19 History Novolin R Regular U-100 Insuln 0 unit CONTINUOUS SUBCUTANEOUS 02/13/19 02/13/19 History INFUSION DIRECTED gabapentin 300 mg PO TID 02/13/19 02/13/19 History hydrocodone-acetaminophen 1 tab PO Q6 PRN 02/13/19 02/13/19 History levetiracetam [Keppra] 500 mg PO BID #60 tab 02/14/19 Rx Patient History Medical History Thrombocytopenia T2DM (type 2 diabetes mellitus) (Chronic) GERD (gastroesophageal reflux disease) (Chronic) Bipolar disorder (Chronic) Chronic pain (Chronic) HTN (hypertension) (Chronic) HLD (hyperlipidemia) (Chronic) Depression (Chronic) DONNA (obstructive sleep apnea) (Chronic) Back pain (Chronic) Liver cirrhosis secondary to MENDEZ (Acute) H/O TIA (transient ischemic attack) and stroke History of hysterectomy Hypertension Liver cancer Seizure Stroke Vertigo Surgical History History of tubal ligation Family History Other No significant family history Social History Preferred Language: [place] Communication Ability: Effective Service Desk Director Required: No Beliefs That Will Affect Care: None Current Living Situation: Spouse and Family Current Living Situation Comment: SON AND Feels Safe at Home: Yes Safety Concerns: Feels Safe At This Time Smoking Status: Never smoker Hx Alcohol Use: No Hx Substance Use: No Physical Exam Physical Exam: Physical Exam: Constitutional: appearance over nourished, healthy Ears, Nose, Mouth and Throat: mucous membranes moist, no injection and skin normal, eyes normal Cardiovascular: normal S-1 and S-2 and regular rate and rhythm Respiratory: clear to auscultation (CTA) and no rales, ronchi or wheeze Musculoskeletal: no peripheral edema and good distal pulses Skin: no stigmata of neurocutaneous disease noted and normal and intact Eyes: extraocular muscles intact (EOMI) and pupils equal, round and reactive to light (PERRL) NEUROLOGIC EXAMINATION: Mental status: Alert and interactive Oriented to full date and location Oriented to person Speech fluent with no evidence of aphasia Cranial Nerves smile eye brow raise symmetric, tongue midline Reflexes: Deep tendon reflexes were symmetrical and graded 2/5. down going toes bilaterally Sensory: no deficit to light cool touch Coordination: finger to nose no bi pass Gait/Stance: Posture normal. sitting in bed repositions without difficulty Motor: Negative for pronator drift of out stretched arms with eyes closed. arm drift without pronator drift on left Strength: biceps triceps hand customer service manager right 5/5, left 4+/5, hip flex 5/5 plantar flex ext 5/5 Results & Data Vital Signs (Past 12 Hours) Vital Signs Temp Pulse Pulse Resp BP Pulse Ox 02/14/19 11:13 36.8 C 72 18 115/80 95 02/14/19 07:23 36.5 C 72 16 115/76 96 02/14/19 04:40 36.5 C 94 H 18 90/58 L 94 02/14/19 04:19 72 02/14/19 02:42 36.6 C 75 16 100/66 97 Laboratory Results Abnormal lab results 02/13/19 02/13/19 02/14/19 Range/Units 21:52 21:52 01:57 RBC 3.95 L (4.2-5.4) M/uL Hgb 11.1 L (12.0-16.0) g/dL Hct 32.9 L (37-47) % Plt Count 114 L (130-400) K/uL Isabela # (Auto) 0.66 H (0.11-0.59) K/uL Platelet Estimate (Normal) Glucose 123 H (70-99) mg/dl POC Glucose 112 H (70-99) Hemoglobin A1c (4.5-5.6) % Calcium 8.2 L (8.5-10.1) mg/dl ALT 11 L (12-78) U/L Albumin 3.1 L (3.4-5.0) gm/dl Globulin 4.1 H (2.5-4.0) gm/dl Albumin/Globulin Ratio 0.8 L (0.9-2) 02/14/19 02/14/19 02/14/19 Range/Units 06:56 06:56 06:56 RBC 3.72 L (4.2-5.4) M/uL Hgb 10.2 L (12.0-16.0) g/dL Hct 31.6 L (37-47) % Plt Count 92 L (130-400) K/uL Isabel[place] # (Auto) (0.11-0.59) K/uL Platelet Estimate Decreased L (Normal) Glucose 67 L (70-99) mg/dl POC Glucose (70-99) Hemoglobin A1c 7.0 H (4.5-5.6) % Calcium 7.6 L (8.5-10.1) mg/dl ALT (12-78) U/L Albumin (3.4-5.0) gm/dl Globulin (2.5-4.0) gm/dl Albumin/Globulin Ratio (0.9-2) Diagnostic Findings CT head- No acute intracranial findings. MRI brain- Normal study. EEG- his is a normal EEG without evidence generalized or focal encephalopathy or evidence for potentially epileptogenic activity but does not exclude the diagnosis of a seizure disorder and clinical correlation is required. (1) Epileptic seizure Epilepsy type: unspecified Intractability: not intractable Status epile pticus: without status epilepticus Qualified Code(s): G40.909 - Epilepsy, unspecified, not intractable, without status epilepticus
--- NOTE | 2019-02-14 16:39 | Discharge Summary ---
Date of Service February 14, 2019 Admission HPI Per Admitting Provider DICTATED BY: Daniel Bradford MD DATE OF ADMISSION: 02/14/2019 CHIEF COMPLAINT: Seizures. HISTORY OF PRESENT ILLNESS: A 48-year-old female with past medical history significant for insulin-dependent diabetes type 2, on insulin pump, PEARCE, cirrhosis, chronic pain, lumbago, obstructive sleep apnea on CPAP, bipolar disorder, hypertension, hyperlipidemia, hx of mesenteric lymphadenitis,history of liver lesions, used to get MRI every 2 months, last MRI was November 2018 and now they think it's hepatocellular carcinoma and she has an appointment next week at [facility] for injection of the chemo into the lesions, history of seizures, on gabapentin, presents with couple of episodes of seizures last evening around 8:00 p.m., when she taking her medications when she suddenly felt that she is going to pass out and she asked her family to take her to chair , she sat on the chair and she don't remember anything and she was told she shook her body and she bit her tongue and she had incontinence of bowel and bladder. It lasted for few minutes and after some time, it happened again and she was not as much confused as previous seizures and she was brought in here. Currently, she is alert and awake and oriented. Hemodynamics are stable. ER physician talked to neurologist document control specialist and advised to give Keppra and get MRI scan and the EEGs. She is getting loaded with 1 g of Keppra currently. The patient says that she has some generalized body aches because of her seizures and requests for pain medication. Has some headache, no blurred vision, no sore throat, no runny nose, no difficulty swallowing. Appetite is okay. She is trying to lose weight, sleeps okay. No chest pain or shortness of breath. No cough, has abdominal pain in right upper quadrant. No diarrhea, no constipation, no blood in the stools or black stools. No hematuria or dysuria. No swelling in the legs, no rash. Lately she is using cane while ambulating. Lives with her and son. Principal Diagnosis Seizure disorder Discharge Exam GENERAL: No sign of distress, HEENT: Sclera nonicteric, pink-purple bilateral equal reactive to light extraocular muscle intact Normal oral mucosa, neck: No JVD, no thyromegaly, trachea midline Lungs: Clear to auscultate, no wheeze or rales Cardiovascular: Regular S1 and S2, no murmur or gallop, no JVD, no lower extremity edema Abdomen: Soft, nontender, bowel sounds active, no hepatosplenomegaly Extremities: No rash or deformity, normal joint, Neuro: No focal neurological deficit, no dysarthria, no facial droop Psych: Alert awake oriented x3: Euthymic Skin: No rash LYMPH NODES: No cervical lymphadenopathy Discharge Data Allergies Allergy/AdvReac Type Severity Reaction Status Date / Time naproxen Allergy Unknown BLEEDING Verified 02/13/19 23:06 Consultations 02/14/19 00:33 ED Decision to Admit Stat 02/14/19 08:00 Consult Neurology Routine Ordered Studies 02/13/19 22:18 CT head/brain wo con Urgent 02/14/19 02:00 MR brain seizure wo/w con Routine Hospital Course (1) Epileptic seizure: Treated with seizure episode, was given loading dose of Keppra Did not had any further seizure activity since admission, She is alert and awake, oriented x3 conversing appropriately no confusion States that she feels tired and wiped up no headache no blurred vision no weakness or paresthesia Appreciate input from neurology MRI of brain shows no evidence of any acute change or stroke Stable to be discharged home with p.o. Keppra Patient will continue her outpatient medication of Neurontin for seizure prophylaxis Patient advised not to drive for next 6-month, DMV will be notified Patient needs to be seizure-free while on antiepileptic medication for at least 6-month, and needs EEG neurology clearance prior to have her driving privilege reinstated Patient is agreeable, and understands Stable to be discharged home today With follow-up with Dr. Yesenia Loaiza neurologist at [facility] in clinic (2) Thrombocytopenia: Chronic, secondary to history of liver cirrhosis Pearce, hepatocellular carcinoma No evidence of any active bleeding (3) Hepatocellular carcinoma: Follows with Hepatology in [place] CODE STATUS full code Disposition: Stable to be discharged home today Total Time Total Time Spent Total Time Spent (In Minutes): 35 minutes Total Time Includes: Examination of the Patient, Discharge Planning, Medication Reconciliation and Communication With Other Providers Discharge Plan Discharge Items Patient Disposition: Home - Self-Care Reason For Visit: SEIZURES Discharge Diagnosis: Seizure disorder Discharge Goals: Decrease discomfort, Diagnostic testing and Therapeutic intervention Activity: As commented below Activity Comment: Do not drive for 6-month, avoid swimming/bathing alone, avoid heights: High risk for fall or injury with abrupt seizure episode Driving/Machine Use Comment: Do not drive for at least 6 months, need to be seizure-free during that time to 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 Sebastian 02/18/2019 at 10:[address] for next 6 months, [facility] is notified already, Continue Keppra 500 mg twice daily-new drugs for seizure Continue gabapentin 300 mg 3 times daily Need to follow-up with neurology in 1 month Need to be seizure free while on taking antiseizure medication for the next 6 months to resume driving, Please follow-up with neurology clinic to get letter to DMV if your clinically stable to resume driving after 6 months Avoid swimming/bathing alone, high risk factor surrounding with abrupt onset of seizure Avoid heights, operating heavy missionaries, high risk for injury/fall: For sudden onset of seizure Continue to follow-up hematology oncology in [place] for your liver disease Prescriptions: New levetiracetam [Keppra] 500 mg tablet 500 mg PO BID Qty: 60 RF: 3 Continued furosemide [Lasix] 40 mg tablet 40 mg PO DAILY RF: 0 atorvastatin [Lipitor] 40 mg tablet 40 mg PO DAILY RF: 0 venlafaxine [Effexor XR] 37.5 mg capsule,extended release 24hr 37.5 mg PO DAILY RF: 0 quetiapine [Seroquel] 300 mg tablet 300 mg PO HS RF: 0 atenolol 100 mg Tablet 100 mg PO BID RF: 0 ondansetron HCl [Zofran] 4 mg Tablet 4 mg PO QID PRN (Reason: Nausea) RF: 0 potassium chloride 10 mEq Tablet Extended Release 10 meq PO BID RF: 0 alprazolam [Xanax] 0.5 mg Tablet 0.5 mg PO UD PRN (Reason: ANXIETY PRIOR TO MRI) RF: 0 magnesium oxide [MagOx] 400 mg (241.3 mg magnesium) tablet 400 mg PO DAILY RF: 0 metoclopramide HCl [Reglan] 5 mg Tablet 5 mg PO AC PRN (Reason: Nausea) RF: 0 trazodone 100 mg tablet 200 mg PO HS RF: 0 dicyclomine 20 mg tablet 20 mg PO BID PRN (Reason: PAIN/CRAMPING) RF: 0 meclizine 25 mg Tablet 25 mg PO TID PRN (Reason: DIZZYNESS) RF: 0 metformin [Glucophage] 1,000 mg tablet 1,000 mg PO BIDM RF: 0 losartan [Cozaar] 25 mg tablet 25 mg PO DAILY PRN (Reason: Congestion) RF: 0 ibuprofen 200 mg Tablet 600 mg PO UD PRN (Reason: Pain) RF: 0 omeprazole 20 mg capsule,delayed release(DR/EC) 20 mg PO BID RF: 0 loratadine [Claritin] 10 mg Tablet 10 mg PO DAILY RF: 0 spironolactone [Aldactone] 50 mg tablet 50 mg PO DAILY RF: 0 quetiapine [Seroquel] 50 mg tablet 50 mg PO HS RF: 0 hydrocodone-acetaminophen 5-325 mg tablet 1 tab PO Q6 PRN (Reason: Pain) RF: 0 Novolin R Regular U-100 Insuln 100 unit/mL solution continuous subcutaneous infusion DIRECTED RF: 0 gabapentin 300 mg Capsule 300 mg PO TID RF: 0 Stand-Alone Forms: [facility] Discharge Orders: Discharge Order (Routine); Ordered 02/14/19 Ordered By: Maria Teresa Egan Admission Data Admit Date/Time: 02/14/19 01:10 Attending Provider: Maria Teresa Egan Admit Provider: Daniel Bradford Primary Care Provider: Scott Weldon Other Providers: Daneil Bradford ; Yesenia Loaiza Service: Telemetry Medical Other Interventions: Discharge Summary Assessment (RN) Last Done: 02/14/19 17:37 DC Date/Time DO NOT enter until pt leaves facility: 02/14/19 18:00
[2019-02-14] MEDS ORDERED: TIZANIDINE HCL 4 MG TABLET PO SCH (21:00)
[2019-02-14] MEDS ORDERED: QUETIAPINE FUMARATE 300 MG TABLET PO SCH (21:00)
[2019-02-14] MEDS ORDERED: TRAZODONE HCL 100 MG TAB PO SCH (21:00)
[2019-02-14] MEDS ORDERED: QUETIAPINE FUMARATE 25 MG TABLET PO SCH (21:00)
== END 2019-02-14 18:00 | disposition home or self-care (01) | DRG 101 ==
LOC: ED 21:12 → 2N 02-14 01:10
DX: Z96.41 Presence of insulin pump (external) (internal); D69.59 Other secondary thrombocytopenia; C22.9 Malignant neoplasm of liver, not specified as primary or secondary; F31.9 Bipolar disorder, unspecified; Z86.69 Personal history of other diseases of the nervous system and sense organs; G40.909 Epilepsy, unspecified, not intractable, without status epilepticus; G89.29 Other chronic pain; E78.5 Hyperlipidemia, unspecified; K75.81 Nonalcoholic steatohepatitis (NASH); Z99.89 Dependence on other enabling machines and devices; I10 Essential (primary) hypertension; K21.9 Gastro-esophageal reflux disease without esophagitis; Z88.6 Allergy status to analgesic agent; Z79.4 Long term (current) use of insulin; G47.33 Obstructive sleep apnea (adult) (pediatric); K74.60 Unspecified cirrhosis of liver; E11.9 Type 2 diabetes mellitus without complications

== ENCOUNTER 2019-03-22 15:11 | Inpatient (IN) ==
[2019-03-22] MEDS ORDERED: ACETAMINOPHEN 500 MG TAB PO STA (15:46)
[2019-03-22] MEDS ORDERED: MoRPHine SULFATE 4 MG/ML 1 ML CARP\\VIAL IV STA (15:46)
[2019-03-22] MEDS ORDERED: SODIUM CHLORIDE 0.9% 1000ML 1,000 ML IV SCH (16:00)
[2019-03-22 16:20] LABS: Basophils # (auto) 0.03 K/uL (0-0.2); Basophils % (auto) 0.4 %; Eosinophils # (auto) 0.13 K/uL (0-0.5); Eosinophils % (auto) 1.6 %; Hematocrit (blood only) 34.8 % (37-47); Hemoglobin 11.1 g/dL (12.0-16.0); Immature Granulocytes # (auto) 0.01 K/uL (0.00-0.02); Immature Granulocytes % (auto) 0.1 %; Lymphocytes # (auto) 1.33 K/uL (1.2-3.4); Lymphocytes % (auto) 16.5 %; Mean Corpuscular Hemoglobin 27.2 pg (25-34); Mean Corpuscular Hgb Conc 31.9 g/dL (32-36); Mean Corpuscular Volume 85.3 fL (80-100); Mean Platelet Volume 9.5 fL (7.4-10.4); Monocytes # (auto) 0.54 K/uL (0.11-0.59); Monocytes % (auto) 6.7 %; Neutrophils # (auto) 6.01 K/uL (1.4-6.5); Neutrophils % (auto) 74.7 %; Platelet Count 101 K/uL (130-400); RDW Coefficient of Variation 14.5 % (11.5-14.5); RDW Standard Deviation 45.6 fL (36.4-46.3); Red Blood Count 4.08 M/uL (4.2-5.4); White Blood Count 8.05 K/uL (4.8-10.8)
[2019-03-22 16:42] LABS: Albumin Globulin Ratio 0.8 (0.9-2); Albumin Level 3.4 gm/dl (3.4-5.0); BUN Creatinine Ratio 10.8 (10-20); Bilirubin,Total 0.3 mg/dl (0.2-1); Calcium 8.7 mg/dl (8.5-10.1); Creatinine Clr Calc Pharmacy 68.5 ml/min; Est GFR (African American) 64.1; Est GFR (Non-African American) 55.3; Globulin 4.3 gm/dl (2.5-4.0); Magnesium 1.7 mg/dl (1.8-2.4); Phosphorus 2.8 mg/dl (2.5-4.9); Potassium 4.2 mmol/L (3.5-5.1); Total Protein 7.7 gm/dl (6.4-8.2)
[2019-03-22 16:54] LABS: Appearance Urine Cloudy (Clear); Bacteria Urine Automated 4+ (Negative); Bilirubin Urine Negative (Negative); Blood Urine Negative (Negative); Color Urine Yellow; Epithelial Cell Urine Auto >30 /lpf (0-5); Glucose Urine UA Negative (Negative); Ketones Urine Trace (Negative); Leukocyte Esterase Urine 2+ (Negative); Nitrite Urine Negative (Negative); Protein Urine Negative (Negative); RBC Urine Automated 0-4 /hpf (0-4); Specific Gravity Urine 1.018 (1.000-1.030); Urobilinogen Urine Negative (Negative); pH Urine 5.5 (4.5-7.5)
[2019-03-22 16:55] LABS: Beta-Hydroxybutyrate 1.17 mg/dl (0.2-2.81)
[2019-03-22] MEDS ORDERED: cefTRIAXone SODIUM 2,000 MG/70 ML BAG IV STA (17:06)
[2019-03-22] MEDS ORDERED: DIAZEPAM 5 MG/ML INJ 10ML VIAL IV STA (17:20)
[2019-03-22] MEDS ORDERED: MoRPHine SULFATE 4 MG/ML 1 ML CARP\\VIAL IV ONE (18:05)
--- NOTE | 2019-03-22 18:11 | CT Scan Report ---
CT head/brain wo con CLINICAL HISTORY: 48 years-old Female with seizure, L sided weakness, ?jan's paralysis. Acute seizu re with left-sided weakness TECHNIQUE: Multiple axial CT images of the head were obtained without contrast. A dose lowering tech nique was utilized adhering to the principles of ALARA. CT DOSE: 537.48 mGy.cm COMPARISON: Head CT 02/13/2019, brain MRI 02/14/2019. FINDINGS: No acute intracranial hemorrhage, midline shift, intracranial mass, hydrocephalus, territorial ischem ia or abnormal extra-axial collection. The calvarium is intact. The paranasal sinuses, mastoid air cells, and middle ear cavities are clear . IMPRESSION: No acute intracranial abnormality. The above report was generated using voice recognition software. It may contain grammatical, syntax o r spelling errors. Electronically signed by: Bertin Morris M.D. 03/22/2019 6:09 PM
--- NOTE | 2019-03-22 18:41 | XRay Report ---
XR lumbar spine 2-3V CLINICAL HISTORY: back pain COMPARISON STUDY: Lumbar spine radiographs November 12, 2016. FINDINGS: Alignment of the lumbar spine is anatomic. No fracture or osseous lesion is identified by r adiography. There is mild multilevel disc space narrowing, osteophytosis and facet arthrosis within t he lumbar spine. Sacroiliac joints are intact. IMPRESSION: 1. No lumbar spine fracture. 2. Mild multilevel degenerative disc disease and facet arthrosis within the lumbar spine. Electronically signed by: Pieter Garcia M.D. 03/22/2019 6:40 PM
[2019-03-22] MEDS ORDERED: LORazepam 1 MG/2 ML VIAL IV STA (18:57)
[2019-03-22] MEDS ORDERED: MAGNESIUM SULFATE / D5W 1 GM/100 ML BAG IV ONE (18:57)
[2019-03-22] MEDS ORDERED: SODIUM CHLORIDE 0.9% 500 ML IV SCH (19:00)
[2019-03-22] MEDS ORDERED: INSULIN GLARGINE SOLOSTAR 100 UNITS/ML 3 ML PEN SC STA (19:35)
[2019-03-22] MEDS ORDERED: OXYCODONE HCL IR 5 MG TAB (IMMEDIATE RELEASE) PO STA (20:12)
[2019-03-22] MEDS ORDERED: MoRPHine SULFATE 4 MG/ML 1 ML CARP\\VIAL IV PRN (20:15)
--- NOTE | 2019-03-22 20:15 | History & Physical Report ---
Date of Service March 22, 2019 Assessment & Plan (1) Seizure: Breakthrough seizure Worsening of chronic left-sided weakness (past history of CVA as per records) possible Rene's paresis Possibly precipitated by complicated UTI, no sepsis Rule out obstructive uropathy given flank discomfort symptoms hypertension, stable hx NAFLD cirrhosis, no overt decompensation liver lesions (possible malignancy as per patient) DM2 on insulin pump, well-controlled as of recent hemoglobin A1c of 12 February 2019 chronic pain as per records Chronic anemia, hemoglobin at baseline chronic thrombocytopenia secondary to cirrhosis OBS Medical telemetry Neurochecks Seizure precautions, Ativan as needed Neurology consult RE breakthrough seizures (ER provider already in touch with Dr. Romeo who recommends increasing maintenance Keppra to 750 twice daily.) May need MRI of the brain to rule out recurrent stroke if left-sided paresis does not improve to baseline by tomorrow a.m. Follow urine cultures, IV Ceftriaxone CT abdomen pelvis RE flank pain rule out obstructive uropathy pharmacy glycemic control consult, patient prefers to use her insulin pump inpatient DVT Prophylaxis. SCDs RE thrombocytopenia Full code History of Present Illness Chief Complaint: Breakthrough seizure, left-sided weakness Primary Care Provider: Scott Weldon MD History obtained from patient, family, and records. Medical history significant for seizure disorder, hypertension, hyperlipidemia, past hx of CVA, chronic left hemiparesis as per records, NAFLD cirrhosis, liver lesions (possible malignancy as per patient), DM2 on insulin pump, chronic pain as per records, mood disorder, chronic anemia (baseline hemoglobin of 11), chronic thrombocytopenia, DONNA on CPAP. Recent confinement last month for new onset seizures. Patient discharged on Keppra. Patient not feeling well the last week following in the family. Fair appetite. Bladder discomfort, strong smelling urine noted yesterday. No fever, no chills. Today patient passed out, felt like she had another seizure with loss of bladder control and tongue soreness on waking up. Patient complaining of worsening flank pain. No unusual headaches. Left-sided weakness worse than usual. At the ER, patient given IV Ceftriaxone for possible UTI and IV Keppra for possible breakthrough seizure. Medical History as above Surgical History : Hysteroscopy, vascular procedure, BTL Family History : COPD, diabetes, liver disease, heart disease Personal/Social history : Non-smoker, no EtOH intake, disabled Allergies Allergy/AdvReac Type Severity Reaction Status Date / Time naproxen Allergy Unknown BLEEDING Verified 03/22/19 16:17 Home Medications Home Medications Medication Instructions Recorded Confirmed Type alprazolam [Xanax] 0.5 mg PO UD PRN 10/02/18 03/22/19 History atenolol 100 mg PO BID 10/02/18 03/22/19 History atorvastatin [Lipitor] 40 mg PO DAILY 10/02/18 03/22/19 History dicyclomine 20 mg PO BID PRN 10/02/18 03/22/19 History furosemide [Lasix] 40 mg PO DAILY 10/02/18 03/22/19 History ibuprofen 600 mg PO UD PRN 10/02/18 03/22/19 History loratadine [Claritin] 10 mg PO DAILY 10/02/18 03/22/19 History losartan [Cozaar] 25 mg PO DAILY PRN 10/02/18 03/22/19 History magnesium oxide [MagOx] 400 mg PO DAILY 10/02/18 03/22/19 History meclizine 25 mg PO TID PRN 10/02/18 03/22/19 History metformin [Glucophage] 1,000 mg PO BIDM 10/02/18 03/22/19 History metoclopramide HCl [Reglan] 5 mg PO AC PRN 10/02/18 03/22/19 History omeprazole 20 mg PO BID 10/02/18 03/22/19 History ondansetron HCl [Zofran] 4 mg PO QID PRN 10/02/18 03/22/19 History potassium chloride 10 meq PO BID 10/02/18 03/22/19 History quetiapine [Seroquel] 50 mg PO HS 10/02/18 03/22/19 History quetiapine [Seroquel] 300 mg PO HS 10/02/18 03/22/19 History spironolactone [Aldactone] 50 mg PO DAILY 10/02/18 03/22/19 History trazodone 200 mg PO HS 10/02/18 03/22/19 History venlafaxine [Effexor XR] 37.5 mg PO DAILY 10/02/18 03/22/19 History Novolin R Regular U-100 Insuln 0 unit CONTINUOUS SUBCUTANEOUS 02/13/19 03/22/19 History INFUSION DIRECTED gabapentin 300 mg PO BID 02/13/19 03/22/19 History hydrocodone-acetaminophen 1 tab PO Q6 PRN 02/13/19 03/22/19 History levetiracetam [Keppra] 500 mg PO BID #60 tab 02/14/19 03/22/19 Rx Past Med/Surg History Medical History Thrombocytopenia T2DM (type 2 diabetes mellitus) (Chronic) GERD (gastroesophageal reflux disease) (Chronic) Bipolar disorder (Chronic) Chronic pain (Chronic) HTN (hypertension) (Chronic) HLD (hyperlipidemia) (Chronic) Depression (Chronic) DONNA (obstructive sleep apnea) (Chronic) Back pain (Chronic) Liver cirrhosis secondary to MENDEZ (Acute) H/O TIA (transient ischemic attack) and stroke History of hysterectomy Hypertension Liver cancer Seizure Stroke Vertigo Surgical History History of tubal ligation Family History Other No significant family history Social History Preferred Language: Georgian Communication Ability: Effective Steel Rule Inspector Required: No Beliefs That Will Affect Care: None Current Living Situation: Spouse Current Living Situation Comment: SON AND Other Information That Helps Us Care for You: No Feels Safe at Home: Yes Safety Concerns: Feels Safe At This Time Smoking Status: Never smoker Hx Alcohol Use: No Hx Substance Use: No Review of Systems Review of Systems: As per HPI, all 10 systems reviewed, all other ROS negative Physical Exam Physical Exam: GENERAL: Comfortable, slightly anxious, obese, no respiratory distress SKIN: Pallor, warm HEENT: Pale palpebral conjunctivae, no ptosis, dry buccal mucosa NECK : Supple, short neck, no tenderness CHEST : CTA, no tenderness HEART : RRR, no obvious murmurs ABDOMEN: Chronic distention, epigastric tenderness (chronic as per patient) EXTREMITIES : Bilateral LE swelling, no LE tenderness, no other conspicuous deformities noted NEUROLOGIC : Coherent, no facial asymmetry, MMTs RUE/RLE 4/5, LUE/LLE 3/5; pronator drift left Results & Data Vital Signs (Past 12 Hours) Vital Signs Temp Pulse Resp BP Pulse Ox 03/22/19 19:09 85 15 132/75 97 03/22/19 17:30 87 23 94 03/22/19 17:03 91 H 16 94 03/22/19 17:02 89 132/75 97 03/22/19 15:17 36.7 C 92 H 20 157/96 H 96 Laboratory Results Laboratory Results WBC 8.05 K/uL (4.8-10.8) 03/22/19 16:00 RBC 4.08 M/uL (4.2-5.4) L 03/22/19 16:00 Hgb 11.1 g/dL (12.0-16.0) L 03/22/19 16:00 Hct 34.8 % (37-47) L 03/22/19 16:00 MCV 85.3 fL (80-100) 03/22/19 16:00 MCH 27.2 pg (25-34) 03/22/19 16:00 MCHC 31.9 g/dL (32-36) L 03/22/19 16:00 RDW Std Deviation 45.6 fL (36.4-46.3) 03/22/19 16:00 RDW Coeff of Bailey 14.5 % (11.5-14.5) 03/22/19 16:00 Plt Count 101 K/uL (130-400) L 03/22/19 16:00 MPV 9.5 fL (7.4-10.4) 03/22/19 16:00 Immature Gran % (Auto) 0.1 % 03/22/19 16:00 Neut % (Auto) 74.7 % 03/22/19 16:00 Lymph % (Auto) 16.5 % 03/22/19 16:00 [place] % (Auto) 6.7 % 03/22/19 16:00 Eos % (Auto) 1.6 % 03/22/19 16:00 Baso % (Auto) 0.4 % 03/22/19 16:00 Immature Gran # (Auto) 0.01 K/uL (0.00-0.02) 03/22/19 16:00 Neut # (Auto) 6.01 K/uL (1.4-6.5) 03/22/19 16:00 Lymph # (Auto) 1.33 K/uL (1.2-3.4) 03/22/19 16:00 [place] # (Auto) 0.54 K/uL (0.11-0.59) 03/22/19 16:00 Eos # (Auto) 0.13 K/uL (0-0.5) 03/22/19 16:00 Baso # (Auto) 0.03 K/uL (0-0.2) 03/22/19 16:00 Sodium 136 mmol/L (136-145) 03/22/19 16:00 Potassium 4.2 mmol/L (3.5-5.1) 03/22/19 16:00 Chloride 101 mmol/L (98-107) 03/22/19 16:00 Carbon Dioxide 28 mmol/L (21-32) 03/22/19 16:00 Anion Gap 7.0 (3-11) 03/22/19 16:00 BUN 13 mg/dl (7-18) 03/22/19 16:00 Creatinine 1.18 mg/dl (0.6-1.2) 03/22/19 16:00 Est Cr Clr Drug Dosing 68.5 ml/min 03/22/19 16:00 Est GFR ( Amer) 64.1 03/22/19 16:00 Est GFR (Non-Af Amer) 55.3 03/22/19 16:00 BUN/Creatinine Ratio 10.8 (10-20) 03/22/19 16:00 Glucose 338 mg/dl (70-99) H* 03/22/19 16:00 POC Glucose 195 (70-99) H 03/22/19 19:38 Calcium 8.7 mg/dl (8.5-10.1) 03/22/19 16:00 Phosphorus 2.8 mg/dl (2.5-4.9) 03/22/19 16:00 Magnesium 1.7 mg/dl (1.8-2.4) L 03/22/19 16:00 Total Bilirubin 0.3 mg/dl (0.2-1) 03/22/19 16:00 AST 17 U/L (15-37) 03/22/19 16:00 ALT 13 U/L (12-78) 03/22/19 16:00 Alkaline Phosphatase 139 U/L (45-117) H 03/22/19 16:00 Total Protein 7.7 gm/dl (6.4-8.2) 03/22/19 16:00 Albumin 3.4 gm/dl (3.4-5.0) 03/22/19 16:00 Globulin 4.3 gm/dl (2.5-4.0) H 03/22/19 16:00 Albumin/Globulin Ratio 0.8 (0.9-2) L 03/22/19 16:00 Beta-Hydroxybutyric Acd 1.17 mg/dl (0.2-2.81) 03/22/19 16:00 Urine Color Yellow 03/22/19 16:40 Urine Appearance Cloudy (Clear) A 03/22/19 16:40 Urine pH 5.5 (4.5-7.5) 03/22/19 16:40 Ur Specific [place] 1.018 (1.000-1.030) 03/22/19 16:40 Urine Protein Negative (Negative) 03/22/19 16:40 Urine Glucose (UA) Negative (Negative) 03/22/19 16:40 Urine Ketones Trace (Negative) H 03/22/19 16:40 Urine Blood Negative (Negative) 03/22/19 16:40 Urine Nitrite Negative (Negative) 03/22/19 16:40 Urine Bilirubin Negative (Negative) 03/22/19 16:40 Urine Urobilinogen Negative (Negative) 03/22/19 16:40 Ur Leukocyte Esterase 2+ (Negative) H 03/22/19 16:40 Urine WBC (Auto) 10-30 /hpf (0-5) H 03/22/19 16:40 Urine RBC (Auto) 0-4 /hpf (0-4) 03/22/19 16:40 U Hyaline Cast (Auto) 1-5 /lpf (0-5) 03/22/19 16:40 U Epithel Cells (Auto) >30 /lpf (0-5) H 03/22/19 16:40 Urine Bacteria (Auto) 4+ (Negative) H 03/22/19 16:[address] head: No acute pathology LS XR: 1. No lumbar spine fracture. 2. Mild multilevel degenerative disc disease and facet arthrosis within the lumbar spine. EKG as per my interpretation: Rate 90, NSR, normal axis, diffuse T wave flattening
--- NOTE | 2019-03-22 20:39 | Emergency Department Note ---
Entered by Yumiko Wayne acting as a scribe for History of Present Illness General Chief complaint: Seizure Stated complaint: SEIZURE, PAIN, POSSIBLE MINI STROKE Time Seen by Provider: 03/22/19 15:33 Source: patient Limitations: no limitations History of Present Illness Onset (ago): hour(s) (1.5) Location: head Severity: similar to prior episodes Pain Consistency: + other (episode) Maximum Pain Intensity: 9 Quality: + other (seizure) Associated symptoms: + headaches, + nausea/vomiting and + other (left-sided weakness) The patient is a 48 year old female who presents to the Emergency Room with complaints of an episode of a seizure that occurred at 14:00 today, about 1.5 hours ago. The patient reports that she fell off her bed during the episode, not ing that her bed is only about 3 feet high. She states that this episode was similar to her previous seizures, noting that she was diagnosed with seizures last month. The patient complains of a headache. She complains of back pain that worsens with movement. The patient complains of left-sided weakness, noting that this is normal to experience after her seizures. She complains of intermittent nausea. The patient notes that she was incontinent during the episode and she bit her tongue. She notes that she takes Keppra and gabapentin. The patient reports that she has an appointment with her PCP tomorrow. Home Medications Home Medications Medication Instructions Recorded Confirmed Type alprazolam [Xanax] 0.5 mg PO UD PRN 10/02/18 03/22/19 History atenolol 100 mg PO BID 10/02/18 03/22/19 History atorvastatin [Lipitor] 40 mg PO DAILY 10/02/18 03/22/19 History dicyclomine 20 mg PO BID PRN 10/02/18 03/22/19 History furosemide [Lasix] 40 mg PO DAILY 10/02/18 03/22/19 History ibuprofen 600 mg PO UD PRN 10/02/18 03/22/19 History loratadine [Claritin] 10 mg PO DAILY 10/02/18 03/22/19 History losartan [Cozaar] 25 mg PO DAILY PRN 10/02/18 03/22/19 History magnesium oxide [MagOx] 400 mg PO DAILY 10/02/18 03/22/19 History meclizine 25 mg PO TID PRN 10/02/18 03/22/19 History metformin [Glucophage] 1,000 mg PO BIDM 10/02/18 03/22/19 History metoclopramide HCl [Reglan] 5 mg PO AC PRN 10/02/18 03/22/19 History omeprazole 20 mg PO BID 10/02/18 03/22/19 History ondansetron HCl [Zofran] 4 mg PO QID PRN 10/02/18 03/22/19 History potassium chloride 10 meq PO BID 10/02/18 03/22/19 History quetiapine [Seroquel] 50 mg PO HS 10/02/18 03/22/19 History quetiapine [Seroquel] 300 mg PO HS 10/02/18 03/22/19 History spironolactone [Aldactone] 50 mg PO DAILY 10/02/18 03/22/19 History trazodone 200 mg PO HS 10/02/18 03/22/19 History venlafaxine [Effexor XR] 37.5 mg PO DAILY 10/02/18 03/22/19 History Novolin R Regular U-100 Insuln 0 unit CONTINUOUS SUBCUTANEOUS 02/13/19 03/22/19 History INFUSION DIRECTED gabapentin 300 mg PO BID 02/13/19 03/22/19 History hydrocodone-acetaminophen 1 tab PO Q6 PRN 02/13/19 03/22/19 History levetiracetam [Keppra] 500 mg PO BID #60 tab 02/14/19 03/22/19 Rx Allergies Allergy/AdvReac Type Severity Reaction Status Date / Time naproxen Allergy Unknown BLEEDING Verified 03/22/19 16:17 Past Med/Surg History Medical History Thrombocytopenia T2DM (type 2 diabetes mellitus) (Chronic) GERD (gastroesophageal reflux disease) (Chronic) Bipolar disorder (Chronic) Chronic pain (Chronic) HTN (hypertension) (Chronic) HLD (hyperlipidemia) (Chronic) Depression (Chronic) DONNA (obstructive sleep apnea) (Chronic) Back pain (Chronic) Liver cirrhosis secondary to MENDEZ (Acute) H/O TIA (transient ischemic attack) and stroke History of hysterectomy Hypertension Liver cancer Seizure Stroke Vertigo Surgical History History of tubal ligation Family History Other No significant family history Social History Preferred Language: Georgian Communication Ability: Effective Environmental Manager Required: No Beliefs That Will Affect Care: None Current Living Situation: Spouse and Family Current Living Situation Comment: SON AND Feels Safe at Home: Yes Smoking Status: Never smoker Hx Alcohol Use: No Hx Substance Use: No Review of Systems See HPI for pertinent positives & negatives. and A total of 10 systems reviewed and were otherwise negative Physical Exam Vital Signs Vital Signs - 24 hr 03/22/19 15:17 03/22/19 17:02 03/22/19 17:03 Temperature 36.7 C Temperature Source Oral Sepsis Recent Fever Within 48 Hours No Sepsis New/Unexplained Change in Mental Status No Sepsis Action Taken by Nursing No Action Required Pulse Rate 92 H 89 91 H Pulse Rate from SpO2 Sensor 89 90 Respiratory Rate 20 16 Blood Pressure 157/96 H 132/75 Blood Pressure Mean 116 94 Blood Pressure Position Sitting Pulse Oximetry 96 97 94 Oxygen Delivery Method Room Air 03/22/19 17:30 03/22/19 19:09 Temperature Temperature Source Sepsis Recent Fever Within 48 Hours Sepsis New/Unexplained Change in Mental Status Sepsis Action Taken by Nursing Pulse Rate 87 85 Pulse Rate from SpO2 Sensor 87 84 Respiratory Rate 23 15 Blood Pressure 132/75 Blood Pressure Mean 94 Blood Pressure Position Pulse Oximetry 94 97 Oxygen Delivery Method GENERAL: Well appearing, well nourished, NAD, non-toxic. Wearing glasses. EYE EXAM: Normal conjunctiva. PERRL, no anisocoria and EOM's grossly intact w/o pain. OROPHARYNX: Moist mucous membranes. Grossly normal dentition. Abrasion to right lateral side of the tongue. NECK: Supple, no nuchal rigidity, no adenopathy, non-tender. No signs of meningismus. LUNGS: Clear to auscultation. Normal chest wall mechanics. HEART: NSR, no MRG. ABDOMEN: Abdomen soft, non-tender, normo-active bowel sounds, no masses, no rebound or guarding. BACK: No CVA TTP. SKIN: No rashes and no bruising. UPPER EXTREMITIES: Upper extremities are grossly normal. LOWER EXTREMITIES: No pitting edema. No calf pain. NEURO EXAM: A&O x3, 4/5 strength in the left upper and left lower extremities. No sensory deficit. Normal right sided strength. No facial droop. No slurred speech. Course 1535: I reviewed the patients EMR. Per the patients EMR, she was diagnosed with seizures during last admission. She had a negative EEG. She is supposed to be on Keppra 500 BID. She was discharged on 02/14/19. 1539: The patient was evaluated in room C10. A complete history and physical exam was performed. 1744: I reevaluated the patient, and she stated that her headache was gone and she felt better. She complained of some continuing back pain. 185: I spoke with Dr. Reyna, [facility] neurology, about the patients case. He recommended increasing the Keppra to 750 BID. 1921: I spoke with Dr. Latham, [facility] hospitalist, about the patient's case. He will further evaluate the patient. Administered Medications Discontinued Medications Acetaminophen (Tylenol) 1,000 mg PO NOW STA Stop: 03/22/19 15:47 Last Admin: 03/22/19 16:21 Dose: 1,000 mg Documented by: [id number] Diazepam (Valium) 5 mg IV NOW STA Stop: 03/22/19 17:21 Last Admin: 03/22/19 17:25 Dose: 5 mg Documented by: [id number] Levetiracetam 1,000 mg/ (Dextrose) 110 mls @ 440 mls/hr IV NOW STA Stop: 03/22/19 16:00 Last Infusion: 03/22/19 16:44 Dose: 0 mls/hr Documented by: [id number] Admin: 03/22/19 16:21 Dose: 440 mls/hr Documented by: [id number] Sodium Chloride (Nss 1000ml) 1,000 mls @ 999 mls/hr IV .Q1H1M MARCIA Stop: 03/22/19 17:00 Last Infusion: 03/22/19 18:04 Dose: 0 mls/hr Documented by: [id number] Admin: 03/22/19 16:44 Dose: 999 mls/hr Documented by: [id number] Ceftriaxone Sodium (Rocephin) 2,000 mg in 70 mls @ 140 mls/hr IV NOW STA Stop: 03/22/19 17:35 Last Infusion: 03/22/19 18:04 Dose: 0 mls/hr Documented by: [id number] Admin: 03/22/19 17:16 Dose: 140 mls/hr Documented by: [id number] Magnesium Sulfate/Dextrose (Magnesium Sulfate / D5w) 1 gm in 100 mls @ 100 mls/hr IV ONE ONE Stop: 03/22/19 19:56 Last Infusion: 03/22/19 20:25 Dose: 0 mls/hr Documented by: [id number] Admin: 03/22/19 19:12 Dose: 100 mls/hr Documented by: [id number] Sodium Chloride (Nss) 500 mls @ 250 mls/hr IV .Q2H MARCIA Stop: 04/21/19 18:59 Last Infusion: 03/22/19 21:16 Dose: 0 mls/hr Documented by: [id number] Admin: 03/22/19 19:11 Dose: 250 mls/hr Documented by: [id number] Lorazepam (Ativan) 1 mg in 2 mls @ 2 mls/min IV NOW STA Stop: 03/22/19 18:58 Last Admin: 03/22/19 19:12 Dose: 2 mls/min Documented by: [id number] Insulin Glargine (Lantus Solostar Pen) 10 units SC NOW STA Stop: 03/22/19 19:36 Last Admin: 03/22/19 20:02 Dose: Not Given Documented by: [id number] Cosigned by: [id number] Morphine Sulfate (Morphine Sulfate) 4 mg IV NOW STA Stop: 03/22/19 15:47 Last Admin: 03/22/19 16:21 Dose: 4 mg Documented by: [id number] Morphine Sulfate (Morphine Sulfate) 4 mg IV ONE ONE Stop: 03/22/19 18:06 Last Admin: 03/22/19 17:58 Dose: 4 mg Documented by: [id number] Oxycodone HCl (Roxicodone Immediate Rel) 5 mg PO NOW STA Stop: 03/22/19 20:13 Last Admin: 03/22/19 20:24 Dose: 5 mg Documented by: [id number] Medical Decision Making Differential Diagnosis Differential includes seizure, acute coronary syndrome, myocardial infarction, CVA, TIA, anemia, infection, pneumonia, UTI, pyelonephritis, poor nutrition, dehydration, electrolyte disturbance,hypoglycemia. Medical Records Attestation: I reviewed the patient's medical records. Home Medications Current Medication List: was personally reviewed by me Laboratory Data Attestation: I reviewed the patient's lab results. Result diagrams: 03/22/19 16:00 03/22/19 16:00 Lab Results 03/22/19 03/22/19 03/22/19 Range/Units 16:00 16:00 16:40 WBC 8.05 (4.8-10.8) K/uL RBC 4.08 L (4.2-5.4) M/uL Hgb 11.1 L (12.0-16.0) g/dL Hct 34.8 L (37-47) % MCV 85.3 (80-100) fL MCH 27.2 (25-34) pg MCHC 31.9 L (32-36) g/dL RDW Std Deviation 45.6 (36.4-46.3) fL RDW Coeff of Bailey 14.5 (11.5-14.5) % Plt Count 101 L (130-400) K/uL MPV 9.5 (7.4-10.4) fL Immature Gran % (Auto) 0.1 % Neut % (Auto) 74.7 % Lymph % (Auto) 16.5 % [place] % (Auto) 6.7 % Eos % (Auto) 1.6 % Baso % (Auto) 0.4 % Immature Gran # (Auto) 0.01 (0.00-0.02) K/uL Neut # (Auto) 6.01 (1.4-6.5) K/uL Lymph # (Auto) 1.33 (1.2-3.4) K/uL [place] # (Auto) 0.54 (0.11-0.59) K/uL Eos # (Auto) 0.13 (0-0.5) K/uL Baso # (Auto) 0.03 (0-0.2) K/uL Sodium 136 (136-145) mmol/L Potassium 4.2 (3.5-5.1) mmol/L Chloride 101 (98-107) mmol/L Carbon Dioxide 28 (21-32) mmol/L Anion Gap 7.0 (3-11) BUN 13 (7-18) mg/dl Creatinine 1.18 (0.6-1.2) mg/dl Est Cr Clr Drug Dosing 68.5 ml/min Est GFR ( Amer) 64.1 Est GFR (Non-Af Amer) 55.3 BUN/Creatinine Ratio 10.8 (10-20) Glucose 338 H* (70-99) mg/dl POC Glucose (70-99) Calcium 8.7 (8.5-10.1) mg/dl Phosphorus 2.8 (2.5-4.9) mg/dl Magnesium 1.7 L (1.8-2.4) mg/dl Total Bilirubin 0.3 (0.2-1) mg/dl AST 17 (15-37) U/L ALT 13 (12-78) U/L Alkaline Phosphatase 139 H (45-117) U/L Total Protein 7.7 (6.4-8.2) gm/dl Albumin 3.4 (3.4-5.0) gm/dl Globulin 4.3 H (2.5-4.0) gm/dl Albumin/Globulin Ratio 0.8 L (0.9-2) Beta-Hydroxybutyric Acd 1.17 (0.2-2.81) mg/dl Urine Color Yellow Urine Appearance Cloudy A (Clear) Urine pH 5.5 (4.5-7.5) Ur Specific [place] 1.018 (1.000-1.030) Urine Protein Negative (Negative) Urine Glucose (UA) Negative (Negative) Urine Ketones Trace H (Negative) Urine Blood Negative (Negative) Urine Nitrite Negative (Negative) Urine Bilirubin Negative (Negative) Urine Urobilinogen Negative (Negative) Ur Leukocyte Esterase 2+ H (Negative) Urine WBC (Auto) 10-30 H (0-5) /hpf Urine RBC (Auto) 0-4 (0-4) /hpf U Hyaline Cast (Auto) 1-5 (0-5) /lpf U Epithel Cells (Auto) >30 H (0-5) /lpf Urine Bacteria (Auto) 4+ H (Negative) 03/22/19 Range/Units 19:38 WBC (4.8-10.8) K/uL RBC (4.2-5.4) M/uL Hgb (12.0-16.0) g/dL Hct (37-47) % MCV (80-100) fL MCH (25-34) pg MCHC (32-36) g/dL RDW Std Deviation (36.4-46.3) fL RDW Coeff of Bailey (11.5-14.5) % Plt Count (130-400) K/uL MPV (7.4-10.4) fL Immature Gran % (Auto) % Neut % (Auto) % Lymph % (Auto) % [place] % (Auto) % Eos % (Auto) % Baso % (Auto) % Immature Gran # (Auto) (0.00-0.02) K/uL Neut # (Auto) (1.4-6.5) K/uL Lymph # (Auto) (1.2-3.4) K/uL [place] # (Auto) (0.11-0.59) K/uL Eos # (Auto) (0-0.5) K/uL Baso # (Auto) (0-0.2) K/uL Sodium (136-145) mmol/L Potassium (3.5-5.1) mmol/L Chloride (98-107) mmol/L Carbon Dioxide (21-32) mmol/L Anion Gap (3-11) BUN (7-18) mg/dl Creatinine (0.6-1.2) mg/dl Est Cr Clr Drug Dosing ml/min Est GFR ( Amer) Est GFR (Non-Af Amer) BUN/Creatinine Ratio (10-20) Glucose (70-99) mg/dl POC Glucose 195 H (70-99) Calcium (8.5-10.1) mg/dl Phosphorus (2.5-4.9) mg/dl Magnesium (1.8-2.4) mg/dl Total Bilirubin (0.2-1) mg/dl AST (15-37) U/L ALT (12-78) U/L Alkaline Phosphatase (45-117) U/L Total Protein (6.4-8.2) gm/dl Albumin (3.4-5.0) gm/dl Globulin (2.5-4.0) gm/dl Albumin/Globulin Ratio (0.9-2) Beta-Hydroxybutyric Acd (0.2-2.81) mg/dl Urine Color Urine Appearance (Clear) Urine pH (4.5-7.5) Ur Specific [place] (1.000-1.030) Urine Protein (Negative) Urine Glucose (UA) (Negative) Urine Ketones (Negative) Urine Blood (Negative) Urine Nitrite (Negative) Urine Bilirubin (Negative) Urine Urobilinogen (Negative) Ur Leukocyte Esterase (Negative) Urine WBC (Auto) (0-5) /hpf Urine RBC (Auto) (0-4) /hpf U Hyaline Cast (Auto) (0-5) /lpf U Epithel Cells (Auto) (0-5) /lpf Urine Bacteria (Auto) (Negative) Imaging Data Radiologist's Impression: Radiology results as stated below per my review and the radiologist's interpretation: CT head/brain wo con CLINICAL HISTORY: 48 years-old Female with seizure, L sided weakness, ?rene's paralysis. Acute seizure with left-sided weakness TECHNIQUE: Multiple axial CT images of the head were obtained without contrast. A dose lowering technique was utilized adhering to the principles of ALARA. CT DOSE: 537.48 mGy.cm COMPARISON: Head CT 02/13/2019, brain MRI 02/14/2019. FINDINGS: No acute intracranial hemorrhage, midline shift, intracranial mass, hydrocephalus, territorial ischemia or abnormal extra-axial collection. The calvarium is intact. The paranasal sinuses, mastoid air cells, and middle ear cavities are clear. IMPRESSION: No acute intracranial abnormality. The above report was generated using voice recognition software. It may contain grammatical, syntax or spelling errors. Electronically signed by: Bertin Morris M.D. 03/22/2019 6:09 PM XR lumbar spine 2-3V CLINICAL HISTORY: back pain COMPARISON STUDY: Lumbar spine radiographs November 12, 2016. FINDINGS: Alignment of the lumbar spine is anatomic. No fracture or osseous lesion is identified by radiography. There is mild multilevel disc space narrowing, osteophytosis and facet arthrosis within the lumbar spine. Sacroiliac joints are intact. IMPRESSION: 1. No lumbar spine fracture. 2. Mild multilevel degenerative disc disease and facet arthrosis within the lumbar spine. Electronically signed by: Pieter Garcia M.D. 03/22/2019 6:40 PM ECG Data Attestation: I personally reviewed and interpreted this ECG as follows: Indication: other (seizure) Rate (beats per minute): 90 Rhythm: normal sinus Findings: + other (normal interval and axis, TWI in th ehigh lateral leads) Comparison ECG Date: from (02/13/2019) Change: the following changes noted (T-wave flattening is present, TWI appear more pronounced ) Blood Pressure Blood Pressure Findings: Elevated blood pressure Blood Pressure Disposition: further management by hospitalist MDM Narrative The patient is a 48 year old female who presents to the Emergency Room with complaints of an episode of a seizure that occurred at 14:00 today, about 1.5 hours ago. Patient was seen and evaluated the bedside. The patient had a likely seizure prior to arrival. The patient does have a recent diagnosis of epilepsy. The patient is on Keppra 500 twice daily. The patient has had some increasing stress as the patient states that the family members recently diagnosed with cancer in the patient's mother recently . The patient has also complained of symptoms that may be consistent with UTI. Patient did a blood work completed. Patient was also noted to have some left-sided weakness 4 out of 5 and the patient states that she has had prior weakness with prior seizures in the past. Patient does not have any sensory deficits. Patient was loaded with a gram of Keppra. Patient also did have pain medication given. Patient's blood work did show hyperglycemia and hypomagnesemia. Patient does not have an anion gap or low bicarb. Patient not DKA. The patient did have a CT of the head which is negative. Lumbar spine films showed no fracture. Patient's urine did appear to be infected even though there are epithelials given the patient's presentation with leukocytes, whites, bacteria she was given Rocephin. I did speak with the on-call neurologist stated that the patient could increase the Keppra to 750 mg twice daily. I did speak with the on-call hospitalist agreed to further evaluate treat the patient given the patient's increasing seizure frequency and persistent tonsil paralysis. Of note the patient did have a recent negative brain MRI and EEG. Patient was admitted to the medicine service. Impression & Plan Seizure, UTI (urinary tract infection), Hypomagnesemia, Dehydration, Hyperglyc emia, Rene's paralysis Discharge Plan Visit Data Chief Complaint: Seizure Stated Complaint: SEIZURE, PAIN, POSSIBLE MINI STROKE ED Provider: Gabriel Oliver Discharge Problem: Seizure, UTI (urinary tract infection), Hypomagnesemia, Dehydration, Hyperglycemia, Rene's paralysis Patient Disposition: Being Evaluated by Hospitalist Discharge Instructions Interventions: ED Discharge Assessment Last Done: 03/22/19 20:52 Discharge Problem: UTI (urinary tract infection) Qualifiers: Urinary tract infection type: site unspecified Hematuria presence: without hematuria Qualified Code(s): N39.0 - Urinary tract infection, site not specified The scribe's documentation has been prepared under my direction and personally reviewed by me in its entirety. I confirm that the note above accurately reflects all work, treatment, procedures, and medical decision making performed by me.
--- NOTE | 2019-03-22 21:06 | CT Scan Report ---
ABDOMEN AND PELVIS CT WITHOUT CONTRAST CT DOSE: 947.17 mGy.cm HISTORY: Acute bilateral flank pain flank pain TECHNIQUE: Multiaxial CT images of the abdomen and pelvis were performed without contrast. A dose lo wering technique was utilized adhering to the principles of ALARA. COMPARISON STUDY: Radiographs of the lumbar spine of same day, CT abdomen and pelvis 01/19/2019 FINDINGS: Lung bases are generally clear. There is no pneumatosis or pneumoperitoneum. Imaged inferior cardiac chambers are unremarkable. Hepatomegaly with cirrhotic liver disease. Mild hepatic steatosis. No foca l hepatic mass lesion. Indeterminate 7 mm lesion of the subcapsular right hepatic lobe. Splenomegaly. Unremarkable pancreas. Mild gallbladder distention without cholelithiasis with suggestion of mild ga llbladder wall thickening. No biliary ductal dilation. Adrenal glands are within normal limits. Mild nonspecific bilateral perinephric stranding. Ureters are unremarkable. Punctate nonobstructing calcul us of the superior pole left kidney. No obstructive uropathy. Asymmetric prominence of the left adnex a. Uterus and right adnexum appear unremarkable. Aorta and IVC are within normal limits. There is no adenopathy. Mild nonspecific stranding of the presacral tissues with trace free pelvic fluid. No bowel obstruction or bowel wall thickening. Mild to moderate fecal retention. Terminal ileum and a ppendix are unremarkable. Small fat filled periumbilical hernia. Bones appear to be intact. Transitio nal lumbosacral anatomy with multilevel degenerative changes of the spine. IMPRESSION: 1. Nonobstructing left nephrolithiasis. No ureteral calculi or obstructive uropathy. 2. No bowel obstruction or bowel wall thickening. Normal appendix. 3. Mild to moderate fecal retention. 4. Hepatosplenomegaly with cirrhotic liver disease. 5. Trace free pelvic fluid. 6. Additional findings as above. Electronically signed by: Bertin Morris M.D. 03/22/2019 9:04 PM
[2019-03-22] MEDS ORDERED: LORazepam 1 MG/2 ML VIAL IV PRN (21:12)
[2019-03-22] MEDS ORDERED: ACETAMINOPHEN 325 MG TAB PO PRN (21:12)
[2019-03-22] MEDS ORDERED: METOCLOPRAMIDE HCL 5 MG TABLET PO PRN (21:12)
[2019-03-22] MEDS ORDERED: MECLIZINE HCL 25 MG TAB PO PRN (21:12)
[2019-03-22] MEDS ORDERED: PROMETHAZINE HCL 12.5 MG in SODIUM CHLORIDE 0.9% 50 ML IV PRN (21:12)
[2019-03-22] MEDS ORDERED: NovoLIN-R INSULIN PER UNIT CHARGE IV SCH (21:12)
[2019-03-22] MEDS ORDERED: PHARMACY GLYCEMIC MGMT CONSULT PRN (21:24)
[2019-03-22] MEDS: PANTOprazole 40 MG TAB PO SCH (22:06)
[2019-03-22] MEDS: QUETIAPINE FUMARATE 25 MG TABLET PO SCH (22:07)
[2019-03-22] MEDS: GABAPENTIN 300 MG CAP PO SCH (22:09)
[2019-03-22] MEDS: QUETIAPINE FUMARATE 300 MG TABLET PO SCH (22:09)
[2019-03-22] MEDS: TRAZODONE HCL 100 MG TAB PO SCH (22:11)
[2019-03-22] MEDS ORDERED: GLUCOSE 40% GEL 15 GM TUBE PO PRN (22:15)
[2019-03-22] MEDS ORDERED: DEXTROSE 50% 50 ML SYRINGE IV PRN (22:15)
[2019-03-22] MEDS ORDERED: GLUCAGON FOR INJ 1 MG VIAL SQ PRN (22:15)
[2019-03-22] MEDS ORDERED: GLUCOSE 10 TABS/TUBE PO PRN (22:15)
[2019-03-22] MEDS ORDERED: HumuLIN-R 10 ML VIAL SC PRN (22:15)
[2019-03-22] MEDS ORDERED: CARBOHYDRATES FOR HYPOGLYCEMIA PO PRN (22:15)
[2019-03-22] MEDS: DOCUSATE SODIUM/SENNA 50/8.6MG TAB PO SCH (22:15)
[2019-03-22] MEDS: OXYCODONE HCL IR 5 MG TAB (IMMEDIATE RELEASE) PO PRN (23:15)
[2019-03-22] MEDS ORDERED: MoRPHine SULFATE 2 MG/ML CARP IV PRN (23:28)
[2019-03-23] MEDS ORDERED: HEPARIN 100 UNIT/ML 5ML FLUSH ONE (04:08)
[2019-03-23] MEDS: OXYCODONE HCL IR 5 MG TAB (IMMEDIATE RELEASE) PO PRN ×3 (05:55→15:27)
[2019-03-23 06:08] LABS: Hematocrit (blood only) 31.9 % (37-47); Hemoglobin 10.4 g/dL (12.0-16.0); Mean Corpuscular Hemoglobin 27.6 pg (25-34); Mean Corpuscular Hgb Conc 32.6 g/dL (32-36); Mean Corpuscular Volume 84.6 fL (80-100); RDW Coefficient of Variation 14.6 % (11.5-14.5); RDW Standard Deviation 45.4 fL (36.4-46.3); Red Blood Count 3.77 M/uL (4.2-5.4); White Blood Count 5.57 K/uL (4.8-10.8)
[2019-03-23 06:33] LABS: Basophils # (auto) 0.03 K/uL (0-0.2); Basophils % (auto) 0.5 %; Eosinophils % (auto) 3.6 %; Immature Granulocytes # (auto) 0.01 K/uL (0.00-0.02); Immature Granulocytes % (auto) 0.2 %; Lymphocytes # (auto) 1.83 K/uL (1.2-3.4); Lymphocytes % (auto) 32.9 %; Mean Platelet Volume 9.6 fL (7.4-10.4); Monocytes # (auto) 0.49 K/uL (0.11-0.59); Monocytes % (auto) 8.8 %; Neutrophils # (auto) 3.01 K/uL (1.4-6.5); Ovalocytes 1+; Platelet Count 96 K/uL (130-400); Platelet Estimate Decreased (Normal)
[2019-03-23 06:50] LABS: BUN Creatinine Ratio 10.8 (10-20); Calcium 8.2 mg/dl (8.5-10.1); Creatinine Clr Calc Pharmacy 84.7 ml/min; Est GFR (African American) 84.3; Est GFR (Non-African American) 72.8; Potassium 3.5 mmol/L (3.5-5.1)
[2019-03-23] MEDS: ATENOLOL 25 MG TABLET PO SCH ×2 (08:46→20:18)
[2019-03-23] MEDS: PANTOprazole 40 MG TAB PO SCH ×2 (08:46→20:16)
[2019-03-23] MEDS: LORATADINE 10 MG TAB PO SCH (08:46)
[2019-03-23] MEDS: GABAPENTIN 300 MG CAP PO SCH ×3 (08:47→20:19)
[2019-03-23] MEDS: MAGNESIUM OXIDE 400 MG TAB PO SCH (08:47)
[2019-03-23] MEDS: levETIRAcetam 250 MG TAB PO SCH ×2 (08:47→20:14)
[2019-03-23] MEDS: ATORVASTATIN 40 MG TAB PO SCH (08:48)
[2019-03-23] MEDS: INSULIN REGULAR PUMP SCH ×3 (08:55→17:01)
[2019-03-23] MEDS: DOCUSATE SODIUM/SENNA 50/8.6MG TAB PO SCH (08:55)
[2019-03-23] MEDS ORDERED: VENLAFAXINE HCL XR 37.5 MG CAPXR PO SCH (09:00)
--- NOTE | 2019-03-23 09:24 | Pharmacy Report ---
Glycemic Control Consultation - Date of Service March 23, 2019 - Scope Scope: Glycemic Pharmacist consulted by Dr Latham on 03/22/19 for glycemic control and to write orders per [facility] inpatient glycemic control protocol - Objective Weight: 97.3 kg Accuchecks BSG (last 24hrs): 03/22/19 03/22/19 03/23/19 16:00 19:38 05:26 Glucose 338 H* 101 H POC Glucose 195 H Laboratory Data (last 24hrs): 03/22/19 03/23/19 16:00 05:26 Potassium 4.2 3.5 D Carbon Dioxide 28 30 Anion Gap 7.0 5.0 Creatinine 1.18 0.94 Est Cr Clr Drug Dosing 68.5 84.7 Beta-Hydroxybutyric Acd 1.17 - Recent Pertinent Medications Outpatient Anti-diabetic Regimen: * Novolin R via insulin pump * Basal: 130 units/day * CF: 5 * CR: 3 * Metformin 1 g PO BIDM * A1c = 7 % (02/14/19) * Patient follows with Karina at [facility] - Assessment & Plan Assessment & Plan: ASSESSMENT: * TB is a 48 year-old female who presented to [facility] with breakthrough seizure on 03/22/19 * Patient has PMH of type 2 DM (managed with insulin pump), chronic left-sided weakness, HTN, hx of NAFLD cirrhosis/liver lesions, and chronic anemia * Patient currently receiving ceftriaxone IV for treatment of possible UTI * Per interview with patient, she has a sporadic appetite with resultant hypoglycemia at times (symptomatic 50-60s mg/dL) * Patient has planned follow-up with Karina at [facility] next week * BSG on admission of 338 mg/dL -> down to 101 mg/dL this morning (will follow) * Plan was for patient to manage own insulin pump while inpatient, but glycemic pharmacist notified that patient was low on insulin and a family member wouldn't be able to bring in supplies this evening. Will transition to SC basal/bolus insulin regimen for the interim. * Pump site last changed on 03/22 -> Again, pump to be removed tonight at 1630 PLAN FOR INPATIENT GLYCEMIC CONTROL: * Due to patient reported lows at home - will empirically cut back basal needs by approximately 40% * Entered order to remove insulin pump at 1630 * Basal insulin * NPH 40 units SQ BID * Approximately 40% reduction from home basal of 130 units/day * Bolus insulin * NovoLog per scale ACHS or Q6hrs while NPO starting with dinner on 03/23/19 * Goal Range: Low 120 mg/dL - High 150 mg/dL * Correction Factor: 10 mg/dL/unit * Nutritional / Prandial insulin per carb ratio of 1 unit per 5 grams CHO consumed * Please note that the plan above was derived based on current level of insulin resistance and hospital stress. These recommendations are appropriate for inpatient admission only. Plan of care upon discharge will need to be reassessed to avoid potential outpatient hypo/hyperglycemia. Thank you.
[2019-03-23] MEDS ORDERED: CYCLOBENZAPRINE HCL 10 MG TAB PO PRN (11:56)
--- NOTE | 2019-03-23 12:11 | Hospitalist Progress Note ---
Date of Service March 23, 2019 Assessment & Plan (1) Seizure: This is a 48-year-old female with significant PMH of IDDM 2, HTN, HLD, diabetic gastroparesis, Pearce cirrhosis, [facility] DONNA on CPAP, chronic pain, bipolar disorder, anxiety, epilepsy who presented to [facility] ED on 03/22 secondary to breakthrough seizure and UTI- like symptoms. In ED patient was loaded with Keppra Treated empirically with IV ceftriaxone after acute appearing UTI In ED patient remained hemodynamically stable, afebrile, NH3 WNL, Glucose high 339 Mag low 1.[address] head w/o abnormality Pt has residual increased LUE/LLE weakness from baseline - felt possibly 2/2 todds paralysis pt admitted to med/surg telemetry Keppra increased to 750mg bid seizure precautions eeg ordered wait neuro recommendations for MRI - last done 02/2019 Tx UTI with IV rocephin pharmacy managing insulin regimen - appreciate their input will need to obtain PT/OT consults once medically stable Pain regimen -IV morphine prn, oxycodone prn, flexeril prn Pt on multiple psych meds - ? if polypharm playing a role here K 3.5 - will give KCL 40meq x 1 now (keep K > 4.0, mag > 2) (2) UTI (urinary tract infection): Initial urinalysis significant for UTI Continue treatment with IV Rocephin Await urine culture (3) Hypomagnesemia: repleted in ED Mag 2.0 monitor (4) Liver cirrhosis secondary to PEARCE: follows hepatology in [place] on aldactone and lasix for volume management no signs of volume overload, or H.E.- NH3 normal on admission pt reports hx of liver cancer hepatology notes reviewed - follow hepatic lesion with US/CT scan routinely, AFP wnl, un sure if actual dx of hepatocellular ca lasix and KCL on hold for now due to poor po intake monitor volume status (5) Anemia: H&H stable at 10.4 and 31.9 No Signs or symptoms of bleeding monitor h/h (6) Thrombocytopenia: plt ct stable at 96 coags normal likely in setting of liver dz monitor daily (7) T2DM (type 2 diabetes mellitus): insulin dependent on pump glycemic pharmacy consulted - appreciate their input hold metformin A1C 7.0 02/14/19 BSG 101 (8) Bipolar disorder: mood currently stable, but affect flat on trazodone, seroquel, venlafaxine (9) Chronic pain: pt on chronic hydrocodone and gabapentin at home hold hydrocodone PRN oxycodone, morphine for severe pain flexeril 10mg tid prn for muscle spasm warm compresses TID (10) DVT prophylaxis: SCD/TEDS hold chemical prophylaxis in setting of thrombocytopenia Disposition: pt admitted to med/surg telemetry, no plan for discharge at this time, will need to eventually get PT/OT involved when more medically stable Follow up: PCP Dr. Weldon upon discharge Patient was seen and examined in collaboration with Dr. Egan, please see addendum Supervising Physician Co-Signing Physician Notes ATTENDING ADDENDUM: Patient is seen and examined, care coordinated with Reena Garcia PA-C 48-year-old female admitted with breakthrough seizure, worsening of weakness, urinary tract infection Patient remains stable hemodynamically since admission, no further episode of seizure Afebrile Participated in PT OT, reports of weakness, tiredness Physical exam: General: No sign of distress, alert awake oriented x3, just returned from physical therapy, sitting on chair HEENT: Pupils equal reactive to light extraocular muscle intact Heart: Regular S1-S2 no murmur gallop Lungs: Clear to auscultate no wheeze or rales Extremities: No lower extremity edema Neuro: No dysarthria, chronic left-sided weakness from prior CVA, no seizure activity, no confusion, no complaint of headache Assessment and plan Breakthrough seizure: Patient admitted with seizure episode, Appreciate input from neurology, Keppra dose increased from 500 mg twice daily to 750 mg twice daily UTI Continue on IV Rocephin: Adjust antibiotics when cultures available Hepatocellular CA Follows at [facility] for treatment Continue PT OT Discharge home when medically stable Please refer to further documentation by Reena Garcia PA-C for discussion of other chronic issues Maria Teresa Egan MD Subjective Patient seen and examined in room 287-2. Follow-up breakthrough seizure and UTI. Patient was admitted overnight secondary to breakthrough seizure, increased left-sided weakness and UTI. Patient has been compliant with her Keppra. She admits to having seizure x1 approximately a week ago. Seizure presents with aura, "bright lights in eyes," and immediately goes into convulsions and loss of bowel or bladder. She is unsure duration of seizure 1 week ago, but did not seek medical treatment. Last evening her seizure did not present with aura, "I just went down." She describes seizure-like activity as convulsions, loss of bowel and bladder and tongue biting. She admits over the past few days to overall not feeling well, generalized malaise, fatigue, nausea, dysuria, flank pain, increased urgency with urination. Today she was to have outpatient EEG and she was going to request urinalysis due to symptoms, but has since presented to ED. Currently she continues to feel very fatigued and she did not sleep overnight. Complains of generalized pain all over and in back. Continues with left upper and lower extremity weakness, worse than usual. History of CVA in past with residual left-sided weakness, but now more pronounced. She continues to have right upper quadrant abdominal pain and suprapubic abdominal pain. Overall complains of lack of appetite and approximately 40 pound weight loss unintentional for the past 2 months. Has known history of liver CA diagnosed approximately 1 year ago. She is to begin treatments in May. She currently denies any fever, chills, sweats, lightheadedness, dizziness. She does have slight frontal headache, rated 4 out of 10, nonradiating, associated with aura, visual changes, hearing changes. She denies any kendra chest pain or shortness of breath, palpitations. She had BM last evening, normal for her. Denies diarrhea, melena, hematochezia. Pt admits to being very stressed. Mother 1 week ago, has cancer and pt dx 1 year ago with liver Ca. "Very stressful time right now." Review of Systems Review of Systems: All systems reviewed & are unremarkable except as noted in HPI & below Physical Exam Physical Exam: Gen: Chronically ill/fatigue appearing F, lying in bed, NAD, A&O x3 HEENT: Normocephalic, atraumatic, conjunctivae moist, sclerae anicteric, mucous membranes moist. PEERLA Lung: Clear to Auscultation bilaterally, no wheezes/rales/rhonchi Heart: Regular rate, regular rhythm, no murmurs, rubs, or gallops Abdomen: obese abd, Soft, Tender to palpation RUQ/Suprapubic region, no rebound/guarding or rigidity, ND +BS x 4 Extremities: No edema Skin: Warm, no rash, negative turgor. Neuro: LUE/LLE weakness, strength 3/5, RUE/RLE 5/5, PEERLA, EOMI, cran nerve 2- 12 intact grossly, moves all extremities actively x 4, point to point intact, decreased rapid alternating movements Results & Data Vital Signs (Past 12 Hours) Vital Signs Temp Pulse Resp BP Pulse Ox 03/23/19 07:59 36.5 C 98 H 20 131/84 96 03/23/19 03:19 36.7 C 96 H 20 104/69 95 Laboratory Results Short CBC 03/22/19 03/23/19 Range/Units 16:00 05:26 WBC 8.05 5.57 (4.8-10.8) K/uL Hgb 11.1 L 10.4 L (12.0-16.0) g/dL Hct 34.8 L 31.9 L (37-47) % Plt Count 101 L 96 L (130-400) K/uL BMP 03/22/19 03/23/19 16:00 05:26 Sodium 136 140 Potassium 4.2 3.5 D Chloride 101 105 Carbon Dioxide 28 30 BUN 13 10 Creatinine 1.18 0.94 Glucose 338 H* 101 H Calcium 8.7 8.2 L Liver Function 03/22/19 Range/Units 16:00 Total Bilirubin 0.3 (0.2-1) mg/dl AST 17 (15-37) U/L ALT 13 (12-78) U/L Alkaline Phosphatase 139 H (45-117) U/L Albumin 3.4 (3.4-5.0) gm/dl Urine 03/22/19 Range/Units 16:40 Urine Color Yellow Urine Appearance Cloudy A (Clear) Urine pH 5.5 (4.5-7.5) Ur Specific [place] 1.018 (1.000-1.030) Urine Protein Negative (Negative) Urine Glucose (UA) Negative (Negative) Medications Administered Atenolol (Tenormin) 25 mg PO BID [facility] Stop: 04/22/19 08:59 Last Admin: 03/23/19 08:46 Dose: 25 mg Documented by: [id number] Atorvastatin Calcium (Lipitor) 40 mg PO DAILY M[facility]IA Stop: 04/22/19 08:59 Last Admin: 03/23/19 08:48 Dose: 40 mg Documented by: [id number] Gabapentin (Neurontin) 300 mg PO BID [facility] Stop: 04/21/19 21:11 Last Admin: 03/23/19 08:47 Dose: 300 mg Documented by: [id number] Admin: 03/22/19 22:09 Dose: 300 mg Documented by: [id number] Insulin Human Regular (Insulin Regular Pump) 1 ea N/A ACHS [facility]; Protocol Stop: 04/22/19 07:29 Last Admin: 03/23/19 08:55 Dose: 1 ea Documented by: [id number] Cosigned by: [id number] Levetiracetam (Keppra) 750 mg PO BID [facility] Stop: 04/22/19 08:59 Last Admin: 03/23/19 08:47 Dose: 750 mg Documented by: [id number] Loratadine (Claritin) 10 mg PO DAILY [facility] Stop: 04/22/19 08:59 Last Admin: 03/23/19 08:46 Dose: 10 mg Documented by: [id number] Magnesium Oxide (Mag-Ox) 400 mg PO DAILY [facility] Stop: 04/22/19 08:59 Last Admin: 03/23/19 08:47 Dose: 400 mg Documented by: [id number] Morphine Sulfate (Morphine Sulfate) 2 mg IV Q6H PRN PRN Reason: Pain Stop: 04/05/19 20:14 Last Admin: 03/23/19 03:59 Dose: 2 mg Documented by: [id number] Oxycodone HCl (Roxicodone Immediate Rel) 5 - 10 mg PO Q4H PRN PRN Reason: Pain Stop: 04/05/19 21:11 Last Admin: 03/23/19 10:26 Dose: 10 mg Documented by: [id number] Admin: 03/23/19 05:55 Dose: 10 mg Documented by: [id number] Admin: 03/22/19 23:15 Dose: 10 mg Documented by: [id number] Pantoprazole Sodium (Protonix) 40 mg PO BID [facility] Stop: 04/21/19 21:11 Last Admin: 03/23/19 08:46 Dose: 40 mg Documented by: [id number] Admin: 03/22/19 22:06 Dose: 40 mg Documented by: [id number] Quetiapine Fumarate (Seroquel) 50 mg PO [facility] Stop: 04/21/19 21:11 Last Admin: 03/22/19 22:07 Dose: 50 mg Documented by: [id number] Quetiapine Fumarate (Seroquel) 300 mg PO HS MARCIA Stop: 04/21/19 21:11 Last Admin: 03/22/19 22:09 Dose: 300 mg Documented by: [id number] Senna/Docusate Sodium (Senokot S) 1 tab PO QAM MARCIA Stop: 04/21/19 21:59 Last Admin: 03/23/19 08:55 Dose: 1 tab Documented by: [id number] Admin: 03/22/19 22:15 Dose: Not Given Documented by: [id number] Trazodone HCl (Desyrel) 200 mg PO HS MARCIA Stop: 04/21/19 21:11 Last Admin: 03/22/19 22:11 Dose: 200 mg Documented by: [id number] Venlafaxine HCl (Effexor Extended Release) 37.5 mg PO DAILY MARCIA Stop: 04/22/19 08:59 Last Admin: 03/23/19 08:46 Dose: 37.5 mg Documented by: [id number] Discontinued Medications Acetaminophen (Tylenol) 1,000 mg PO NOW STA Stop: 03/22/19 15:47 Last Admin: 03/22/19 16:21 Dose: 1,000 mg Documented by: [id number] Diazepam (Valium) 5 mg IV NOW STA Stop: 03/22/19 17:21 Last Admin: 03/22/19 17:25 Dose: 5 mg Documented by: [id number] Heparin Sodium (Porcine) (Heparin Sod 100 Unit/Ml Flush) Confirm Administered Dose 5 ml .ROUTE .STK-MED ONE Stop: 03/23/19 04:09 Last Admin: 03/23/19 04:12 Dose: 5 ml Documented by: [id number] Levetiracetam 1,000 mg/ (Dextrose) 110 mls @ 440 mls/hr IV NOW STA Stop: 03/22/19 16:00 Last Infusion: 03/22/19 16:44 Dose: 0 mls/hr Documented by: [id number] Admin: 03/22/19 16:21 Dose: 440 mls/hr Documented by: [id number] Sodium Chloride (Nss 1000ml) 1,000 mls @ 999 mls/hr IV .Q1H1M MARCIA Stop: 03/22/19 17:00 Last Infusion: 03/22/19 18:04 Dose: 0 mls/hr Documented by: [id number] Admin: 03/22/19 16:44 Dose: 999 mls/hr Documented by: [id number] Ceftriaxone Sodium (Rocephin) 2,000 mg in 70 mls @ 140 mls/hr IV NOW STA Stop: 03/22/19 17:35 Last Infusion: 03/22/19 18:04 Dose: 0 mls/hr Documented by: [id number] Admin: 03/22/19 17:16 Dose: 140 mls/hr Documented by: [id number] Magnesium Sulfate/Dextrose (Magnesium Sulfate / D5w) 1 gm in 100 mls @ 100 mls/hr IV ONE ONE Stop: 03/22/19 19:56 Last Infusion: 03/22/19 20:25 Dose: 0 mls/hr Documented by: [id number] Admin: 03/22/19 19:12 Dose: 100 mls/hr Documented by: [id number] Sodium Chloride (Nss) 500 mls @ 250 mls/hr IV .Q2H MARCIA Stop: 04/21/19 18:59 Last Infusion: 03/22/19 21:16 Dose: 0 mls/hr Documented by: [id number] Admin: 03/22/19 19:11 Dose: 250 mls/hr Documented by: [id number] Lorazepam (Ativan) 1 mg in 2 mls @ 2 mls/min IV NOW STA Stop: 03/22/19 18:58 Last Admin: 03/22/19 19:12 Dose: 2 mls/min Documented by: [id number] Insulin Glargine (Lantus Solostar Pen) 10 units SC NOW STA Stop: 03/22/19 19:36 Last Admin: 03/22/19 20:02 Dose: Not Given Documented by: [id number] Cosigned by: [id number] Morphine Sulfate (Morphine Sulfate) 4 mg IV NOW STA Stop: 03/22/19 15:47 Last Admin: 03/22/19 16:21 Dose: 4 mg Documented by: [id number] Morphine Sulfate (Morphine Sulfate) 4 mg IV ONE ONE Stop: 03/22/19 18:06 Last Admin: 03/22/19 17:58 Dose: 4 mg Documented by: [id number] Morphine Sulfate (Morphine Sulfate) 4 mg IV Q6H PRN PRN Reason: Pain Stop: 04/05/19 20:14 Last Admin: 03/22/19 22:23 Dose: 4 mg Documented by: [id number] Oxycodone HCl (Roxicodone Immediate Rel) 5 mg PO NOW STA Stop: 03/22/19 20:13 Last Admin: 03/22/19 20:24 Dose: 5 mg Documented by: [id number] ECG Rate (beats per minute): 90 Rhythm: normal sinus Findings: + nonspecific-ST abn Comparison ECG Date: from (02/2019) (1) UTI (urinary tract infection) Hematuria presence: without hematuria Urinary tract infection type: site unspecified Qualified Code(s): N39.0 - Urinary tract infection, site not specified (2) Chronic pain Chronic pain type: other chronic pain Qualified Code(s): G89.29 - Other chronic pain (3) T2DM (type 2 diabetes mellitus) Diabetes mellitus complication status: without complication Diabetes mellitus long term acute care registered nurse insulin use: with custodial use Qualified Code(s): E11.9 - Type 2 diabetes mellitus without complications; Z79.4 - penitentiary (current) use of insulin (4) Anemia Anemia type: unspecified type Qualified Code(s): D64.9 - Anemia, unspecified
[2019-03-23] MEDS ORDERED: POTASSIUM CHLORIDE 20 MEQ TABCR PO STA (12:58)
--- NOTE | 2019-03-23 14:22 | Neurology Consultation ---
Date of Consultation March 23, 2019 Assessment & Plan (1) Seizure: 1. keppra 500 mg BID increased to 750 mg BID- further adjustments as needed as outpatient 2. UTI treat to culture 3. headache- gabepentin 300 mg TID - using for chronic pain and headache- continue mg++ ox 400 mg and riboflavin 400 mg daily 4. PT/OT for discharge needs 5. primary team for medical management 6. depression stress anxiety can lower seizure threshold and UTI also can reduce seizure threshold 7. would not use ultram for pain can lower seizure threshold follow up neurology Yesenia Wayne PAC 4-6 weeks Supervising Physician Co-Signing Physician Notes Patient was seen and examined. Agree with Yesenia Wayne PA-c. Patient ambulating with physical therapy on rounds this afternoon. Reports feeling malaise and tired. In summary she is a 48 year old woman with MENDEZ / cirrhosis admitted with probable break through seizure in the setting of infection (UTI). She follows with Yesenia Wayne PA-C as outpatient. She was on Keppra 500 mg BID at home and reports compliance. Urine cultures positive for E coli. Will defer to primary for treatment of UTI. Agree with increasing dose of Keppra to 750 mg BID. Would recommend STOPPING low dose Effexor due to history of seizures. History of Present Illness Reason for Consultation: break through seizure Requesting Physician: Maria Teresa Egan MD Attending Physician: Maria Teresa Egan MD History of Present Illness Carmen is a 48 year old female with seizure disorder, anemia, thrombocytopenia, GERD, DM2, HTN, HLD, depression who was seen in the ED for break through seizure, increased left-sided weakness and UTI. She has been taking Keppra 500 mg BID. She had a seizure 1 week prior to this episode. Seizure presents with aura, "bright lights in eyes," and immediately goes into convulsions and loss of bowel or bladder. She is unsure duration of seizure 1 week ago, but did not seek medical treatment. The seizure last night did not present with aura, "I just went down." She describes seizure-like activity as convulsions, loss of bowel and bladder and tongue biting. She admits over the past few days to overall not feeling well, generalized malaise, fatigue, nausea, dysuria, flank pain, increased urgency with urination. She continues to feel very fatigued and she did not sleep overnight. She has generalized pain and nothing is helping. She also states she has a headache. She state the left upper and lower extremity weakness is back to baseline. The left-sided weakness is a residual from a previous stroke. . She continues to have right upper quadrant abdominal pain and suprapubic abdominal pain. She has had a lack of appetite and approximately 40 pound weight loss unintentional for the past 2 months. She has known liver CA diagnosed approximately 1 year ago and will begin treatments in May. She feels depressed because her was diagnosed with multiple myeloma and her mother just passes several days ago. denies CP, SOB, abdominal pain, new one sided weakness, numbness tingling, N, V vision changes. Allergies Allergy/AdvReac Type Severity Reaction Status Date / Time naproxen Allergy Unknown BLEEDING Verified 03/22/19 16:17 Home Medications Home Medications Medication Instructions Recorded Confirmed Type alprazolam [Xanax] 0.5 mg PO UD PRN 10/02/18 03/22/19 History atenolol 100 mg PO BID 10/02/18 03/22/19 History atorvastatin [Lipitor] 40 mg PO DAILY 10/02/18 03/22/19 History dicyclomine 20 mg PO BID PRN 10/02/18 03/22/19 History furosemide [Lasix] 40 mg PO DAILY 10/02/18 03/22/19 History ibuprofen 600 mg PO UD PRN 10/02/18 03/22/19 History loratadine [Claritin] 10 mg PO DAILY 10/02/18 03/22/19 History losartan [Cozaar] 25 mg PO DAILY 10/02/18 03/22/19 History magnesium oxide [MagOx] 400 mg PO DAILY 10/02/18 03/22/19 History meclizine 25 mg PO TID PRN 10/02/18 03/22/19 History metformin [Glucophage] 1,000 mg PO BIDM 10/02/18 03/22/19 History metoclopramide HCl [Reglan] 5 mg PO AC PRN 10/02/18 03/22/19 History omeprazole 20 mg PO BID 10/02/18 03/22/19 History ondansetron HCl [Zofran] 4 mg PO QID PRN 10/02/18 03/22/19 History potassium chloride 10 meq PO BID 10/02/18 03/22/19 History quetiapine [Seroquel] 50 mg PO HS 10/02/18 03/22/19 History quetiapine [Seroquel] 300 mg PO HS 10/02/18 03/22/19 History spironolactone [Aldactone] 50 mg PO DAILY 10/02/18 03/22/19 History trazodone 200 mg PO HS 10/02/18 03/22/19 History venlafaxine [Effexor XR] 37.5 mg PO DAILY 10/02/18 03/22/19 History Novolin R Regular U-100 Insuln 0 unit CONTINUOUS SUBCUTANEOUS 02/13/19 03/22/19 History INFUSION DIRECTED gabapentin 300 mg PO TID 02/13/19 03/23/19 History hydrocodone-acetaminophen 1 tab PO Q6 PRN 02/13/19 03/22/19 History levetiracetam [Keppra] 500 mg PO BID #60 tab 02/14/19 03/22/19 Rx Patient History Medical History Thrombocytopenia T2DM (type 2 diabetes mellitus) (Chronic) GERD (gastroesophageal reflux disease) (Chronic) Bipolar disorder (Chronic) Chronic pain (Chronic) HTN (hypertension) (Chronic) HLD (hyperlipidemia) (Chronic) Depression (Chronic) DONNA (obstructive sleep apnea) (Chronic) Back pain (Chronic) Liver cirrhosis secondary to MENDEZ (Acute) H/O TIA (transient ischemic attack) and stroke History of hysterectomy Hypertension Liver cancer Seizure Stroke Vertigo Surgical History History of tubal ligation Family History Other No significant family history Social History Preferred Language: Greek Communication Ability: Effective Roller Picker Required: No Beliefs That Will Affect Care: None Current Living Situation: Spouse Current Living Situation Comment: SON AND Other Information That Helps Us Care for You: No Feels Safe at Home: Yes Safety Concerns: Feels Safe At This Time Smoking Status: Never smoker Hx Alcohol Use: No Hx Substance Use: No Physical Exam Physical Exam: Physical Exam: Constitutional: appearance nourished, healthy, fatigued, Ears, Nose, Mouth and Throat: mucous membranes moist, no injection and skin normal, eyes normal Cardiovascular: normal S-1 and S-2 and regular rate and rhythm Respiratory: clear to auscultation (CTA) and no rales, ronchi or wheeze Musculoskeletal: no peripheral edema and good distal pulses Skin: no stigmata of neurocutaneous disease noted and normal and intact Eyes: extraocular muscles intact (EOMI) and pupils equal, round and reactive to light (PERRL), right eye lid slightly edema NEUROLOGIC EXAMINATION: Mental status: Alert and interactive Oriented to full date and location Oriented to person Speech fluent with no evidence of aphasia Cranial Nerves smile eye brow raise symmetric Reflexes: Deep tendon reflexes were symmetrical and graded 2/5. Sensory: no deficit to light or cool touch Coordination: left pronator drift finger to nose no bi pass Gait/Stance: Posture lying in bed Strength: biceps triceps hand mechanic's assistant right 5/5, left 3/5, right hip flex 5/5, left 4/5 Results & Data Vital Signs (Past 12 Hours) Vital Signs Temp Pulse Resp BP Pulse Ox 03/23/19 12:20 37.0 C 83 18 119/66 95 03/23/19 07:59 36.5 C 98 H 20 131/84 96 03/23/19 03:19 36.7 C 96 H 20 104/69 95 Laboratory Results Abnormal lab results 03/22/19 03/22/19 03/22/19 Range/Units 16:00 16:00 16:40 RBC 4.08 L (4.2-5.4) M/uL Hgb 11.1 L (12.0-16.0) g/dL Hct 34.8 L (37-47) % MCHC 31.9 L (32-36) g/dL RDW Coeff of Bailey (11.5-14.5) % Plt Count 101 L (130-400) K/uL Platelet Estimate (Normal) Glucose 338 H* (70-99) mg/dl POC Glucose (70-99) Calcium (8.5-10.1) mg/dl Magnesium 1.7 L (1.8-2.4) mg/dl Alkaline Phosphatase 139 H (45-117) U/L Globulin 4.3 H (2.5-4.0) gm/dl Albumin/Globulin Ratio 0.8 L (0.9-2) Urine Appearance Cloudy A (Clear) Urine Ketones Trace H (Negative) Ur Leukocyte Esterase 2+ H (Negative) Urine WBC (Auto) 10-30 H (0-5) /hpf U Epithel Cells (Auto) >30 H (0-5) /lpf Urine Bacteria (Auto) 4+ H (Negative) 03/22/19 03/23/19 03/23/19 Range/Units 19:38 05:26 05:26 RBC 3.77 L (4.2-5.4) M/uL Hgb 10.4 L (12.0-16.0) g/dL Hct 31.9 L (37-47) % MCHC (32-36) g/dL RDW Coeff of Bailey 14.6 H (11.5-14.5) % Plt Count 96 L (130-400) K/uL Platelet Estimate Decreased L (Normal) Glucose 101 H (70-99) mg/dl POC Glucose 195 H (70-99) Calcium 8.2 L (8.5-10.1) mg/dl Magnesium (1.8-2.4) mg/dl Alkaline Phosphatase (45-117) U/L Globulin (2.5-4.0) gm/dl Albumin/Globulin Ratio (0.9-2) Urine Appearance (Clear) Urine Ketones (Negative) Ur Leukocyte Esterase (Negative) Urine WBC (Auto) (0-5) /hpf U Epithel Cells (Auto) (0-5) /lpf Urine Bacteria (Auto) (Negative) Diagnostic Findings CT head-No acute intracranial abnormality. lumbar spine xray-No lumbar spine fracture. Mild multilevel degenerative disc disease and facet arthrosis within the lumbar spine. CT abd/pelvis- Nonobstructing left nephrolithiasis. No ureteral calculi or obstructive uropathy. 2. No bowel obstruction or bowel wall thickening. Normal appendix. Mild to moderate fecal retention. Hepatosplenomegaly with cirrhotic liver disease. Trace free pelvic fluid.
[2019-03-23] MEDS: MoRPHine SULFATE 2 MG/ML CARP IV PRN ×2 (14:26→20:13)
[2019-03-23] MEDS: HEPARIN 100 UNIT/ML 5ML FLUSH FLUSH PRN (14:27)
[2019-03-23] MEDS ORDERED: cefTRIAXone SODIUM 2,000 MG in DEXTROSE 5% 50 ML IV SCH (16:00)
[2019-03-23] MEDS ORDERED: cefTRIAXone SODIUM 1,000 MG in DEXTROSE 5% 50 ML IV SCH (17:00)
[2019-03-23] MEDS ORDERED: INSULIN HUMAN NPH SC SCH (17:00)
[2019-03-23] MEDS: INSULIN ASPART 100 UNITS/ML 3 ML PEN SC SCH ×2 (17:50→20:23)
[2019-03-23] MEDS: QUETIAPINE FUMARATE 300 MG TABLET PO SCH (20:15)
[2019-03-23] MEDS: TRAZODONE HCL 100 MG TAB PO SCH (20:16)
[2019-03-23] MEDS: QUETIAPINE FUMARATE 25 MG TABLET PO SCH (20:17)
[2019-03-24] MEDS ORDERED: INSULIN ASPART 100 UNITS/ML 3 ML PEN SC SCH (02:00)
[2019-03-24 05:58] LABS: Hematocrit (blood only) 33.2 % (37-47); Hemoglobin 10.6 g/dL (12.0-16.0); Mean Corpuscular Hemoglobin 27.4 pg (25-34); Mean Corpuscular Hgb Conc 31.9 g/dL (32-36); Mean Corpuscular Volume 85.8 fL (80-100); RDW Coefficient of Variation 14.7 % (11.5-14.5); RDW Standard Deviation 45.9 fL (36.4-46.3); Red Blood Count 3.87 M/uL (4.2-5.4); White Blood Count 5.23 K/uL (4.8-10.8)
[2019-03-24 05:59] LABS: Mean Platelet Volume 9.3 fL (7.4-10.4); Platelet Count 98 K/uL (130-400)
[2019-03-24 06:45] LABS: Albumin Globulin Ratio 0.7 (0.9-2); Albumin Level 2.7 gm/dl (3.4-5.0); BUN Creatinine Ratio 14.1 (10-20); Bilirubin,Total 0.3 mg/dl (0.2-1); Calcium 8.2 mg/dl (8.5-10.1); Creatinine Clr Calc Pharmacy 80.4 ml/min; Est GFR (African American) 79.2; Est GFR (Non-African American) 68.3; Globulin 4.1 gm/dl (2.5-4.0); Potassium 4.3 mmol/L (3.5-5.1); Total Protein 6.8 gm/dl (6.4-8.2)
[2019-03-24] MEDS ORDERED: INSULIN HUMAN NPH SC SCH ×3 (07:30→16:30)
--- NOTE | 2019-03-24 08:03 | Pharmacy Report ---
Pharmacy Glycemic Short Note 2 - Date of Service March 24, 2019 - Glycemic Short BSG Results (Last 24 hours): 03/23/19 03/23/19 03/23/19 11:53 17:04 19:59 Glucose POC Glucose 75 104 H 109 H 03/24/19 03/24/19 03/24/19 01:52 05:42 07:32 Glucose 175 H POC Glucose 172 H 225 H OUTPATIENT ANTIDIABETIC REGIMEN: * Metformin 1 gm BID * Regular insulin continuous SC infusion via pump * Basal rates: 4.75 units/hr from 00-08, 5.75 units/hr from 08-00 (~130 units/day) * CF: 5 * CR: 3 * A1c = 7 % (02/14/19) * Patient follows with Karina at [facility] ASSESSMENT: 03/24 * Carmen was transitioned off her insulin pump to SQ injections yesterday d/t decreasing BSGs and unable to refill her pump without supplies here * BSGs overnight were stable (goal was NO hypoglycemia) but are starting to climb this AM * Fasting BSG = 225 mg/dL; initially increased basal by 20% but will add more with lunch as BSG has increased further. Patient concerned about elevated BSGs. * Pre-lunch BSG artificially elevated d/t late administration of AM Novolog. Recheck of BSG down to 180 mg/dL at 1430 (~2 hrs after additional dose of NPH given as well). * ZIGGY Pratt, spoke w/ outpatient pharmacist to obtain recs for new basal settings. She recommended overnight rate to decrease by 20% to 3.75 units/hr. Santa made these changes today in preparation for discharge. * Patient reports that her son will likely be in w/ pump supplies tonight so will plan to transition back to her pump to see how her new settings work prior to discharge 03/23 * TB is a 48 year-old female who presented to [facility] with breakthrough seizure on 03/22/19 * Patient has PMH of type 2 DM (managed with insulin pump), chronic left-sided weakness, HTN, hx of NAFLD cirrhosis/liver lesions, and chronic anemia * Patient currently receiving ceftriaxone IV for treatment of possible UTI * Per interview with patient, she has a sporadic appetite with resultant hypoglycemia at times (symptomatic 50-60s mg/dL) * Patient has planned follow-up with Karina at [facility] next week * BSG on admission of 338 mg/dL -> down to 101 mg/dL this morning (will follow) * Plan was for patient to manage own insulin pump while inpatient, but glycemic pharmacist notified that patient was low on insulin and a family member wouldn't be able to bring in supplies this evening. Will transition to SC basal/bolus insulin regimen for the interim. * Pump site last changed on 03/22 -> Again, pump to be removed tonight at 1630 PLAN FOR INPATIENT GLYCEMIC CONTROL: * Continue to hold outpatient oral diabetes medications * Basal insulin - increase AM doses * NPH 50 units this AM, additional 20 units w/ lunch (total equal to pump settings during the day) * NPH 40 units with dinner - will hold this until patient knows if son able to bring in pump supplies tonight * Bolus insulin - tighten slightly * NovoLog per scale ACHS or Q6hrs while NPO * Goal Range: Low 120 mg/dL - High 150 mg/dL * Correction Factor: 8 mg/dL/unit * Nutritional / Prandial insulin per carb ratio of 1 unit per 4 grams CHO consumed * If son able to bring in pump supplies, will NOT give NPH and have patient resume pump this evening with new settings that were changed by CDE today. Novolog can be discontinued at this time as well. PLAN FOR DISCHARGE: * CDE to speak with pharmacist at [facility], who manages outpatient insulin. Will plan to reduce basal settings on pump prior to discharge to prevent further overnight hypoglycemia at home. * Update -> patient can continue pump on discharge as basal settings have been reduced as noted above
--- NOTE | 2019-03-24 08:57 | Hospitalist Progress Note ---
Date of Service March 24, 2019 Subjective ATTENDING ADDENDUM Patient's urine culture: Specimen on 03/22/2019: Report available E. coli: Sensitive to ceftriaxone(has been on IV Rocephin since admission first dose on 03/23/2019 Antibiotic changed to p.o. Ceftin 250 mg mg twice daily-total 5 days of treatment(complicated UTI)-antibiotic day#2 Last day treatment Thursday03/27/2019 Maria Teresa Egan MD Results & Data Vital Signs (Past 12 Hours) Vital Signs Temp Pulse Pulse Resp BP Pulse Ox 03/24/19 07:00 36.8 C 84 16 118/75 94 03/24/19 04:22 36.7 C 73 18 92/56 L 95 03/24/19 00:57 85 03/23/19 22:51 36.4 C L 84 18 110/68 95 03/23/19 22:18 18 95
[2019-03-24] MEDS: INSULIN ASPART 100 UNITS/ML 3 ML PEN SC SCH ×3 (09:13→17:56)
[2019-03-24] MEDS: SPIRONOLACTONE 25 MG TAB PO SCH (09:16)
[2019-03-24] MEDS: LORATADINE 10 MG TAB PO SCH (09:17)
[2019-03-24] MEDS: levETIRAcetam 250 MG TAB PO SCH ×2 (09:18→20:38)
[2019-03-24] MEDS: MAGNESIUM OXIDE 400 MG TAB PO SCH (09:19)
[2019-03-24] MEDS: ATORVASTATIN 40 MG TAB PO SCH (09:19)
[2019-03-24] MEDS: DOCUSATE SODIUM/SENNA 50/8.6MG TAB PO SCH (09:20)
[2019-03-24] MEDS: GABAPENTIN 300 MG CAP PO SCH ×3 (09:20→20:42)
[2019-03-24] MEDS: PANTOprazole 40 MG TAB PO SCH ×2 (09:20→20:45)
[2019-03-24] MEDS: ATENOLOL 25 MG TABLET PO SCH ×2 (09:21→20:40)
[2019-03-24] MEDS: VENLAFAXINE HCL 50 MG TAB PO SCH (09:54)
[2019-03-24] MEDS: cefUROXime axetil 250 MG TABLET PO SCH ×2 (09:54→20:36)
[2019-03-24] MEDS: OXYCODONE HCL IR 5 MG TAB (IMMEDIATE RELEASE) PO PRN ×3 (09:57→21:55)
--- NOTE | 2019-03-24 11:58 | Hospitalist Progress Note ---
Date of Service March 24, 2019 Assessment & Plan (1) Seizure: This is a 48-year-old female with significant PMH of IDDM 2, HTN, HLD, diabetic gastroparesis, Pearce cirrhosis, liver lesions followed by [facility] [place], [place] on CPAP, chronic pain, bipolar disorder, anxiety, epilepsy who presented to [facility] ED on 03/22 secondary to breakthrough seizure and UTI- like symptoms. Keppra increased to 750mg bid seizure precautions Tx UTI with antibiotic pharmacy managing insulin regimen - appreciate their input Continue PT/OT Pain regimen -IV morphine prn, oxycodone prn, flexeril prn Pt on multiple psych meds - ? if polypharm playing a role here Taper venlafaxine given ability to lower seizure threshold Consult Psych for input regarding additional medication for bipolar depression (2) UTI (urinary tract infection): Urine culture + Ecoli Transition to oral ceftin 250mg bid x 5 days (3) Hypomagnesemia: repleted in ED Mag 2.0 monitor (4) Liver cirrhosis secondary to PEARCE: follows hepatology in [place] on aldactone and lasix for volume management no signs of volume overload, or H.E.- NH3 normal on admission pt reports hx of liver cancer hepatology notes reviewed - follow hepatic lesion with US/CT scan routinely, AFP wnl, un sure if actual dx of hepatocellular ca will resume lasix and KCL now that po intake improved monitor volume status (5) Anemia: H&H stable at 10.6 and 33.2 No Signs or symptoms of bleeding monitor h/h (6) Thrombocytopenia: plt ct stable at 98 coags normal likely in setting of liver dz monitor daily (7) T2DM (type 2 diabetes mellitus): insulin dependent on pump glycemic pharmacy consulted - appreciate their input hold metformin A1C 7.0 02/14/19 (8) Bipolar disorder: mood currently stable, but affect flat on trazodone, seroquel, venlafaxine taper venlafaxine secondary to ability to lower seizure threshold Psychiatry consult -patient uneasy about stopping venlafaxine and requesting possibility of additional agent due to bipolar depression and current multiple stressors in life with passing of mother and starting cancer tx (9) Chronic pain: pt on chronic hydrocodone and gabapentin at home hold hydrocodone PRN oxycodone, morphine for severe pain flexeril 10mg tid prn for muscle spasm warm compresses TID (10) DVT prophylaxis: SCD/TEDS hold chemical prophylaxis in setting of thrombocytopenia Disposition: pt admitted to med/surg telemetry, continue PT/OT, likely discharge tomorrow morning Follow up: PCP Dr. Weldon upon discharge Patient was seen and examined in collaboration with Dr. Egan, please see addendum Supervising Physician Co-Signing Physician Notes Attending addendum: Patient seen and examined, care coordinated with Reena Garcia PA-C This is a 48-year-old female with past medical history of seizure disorder hypertension, type 2 diabetes on insulin pump, Admitted with breakthrough seizure, Keppra dose increased to 750 mg twice daily, has been doing well, Awake and alert today feels energy is much better, generalized weakness has resolved Activity is back to baseline Patient reports she was doing well this morning, later walked on the hallway, noticed her back pain is worse than before, Also patient is updated her Effexor is tapered down to discontinue, as it associated with breakthrough seizure Patient is very concerned about her depression/anxiety attack, Psych consult requested to adjustment, recommendation of new antidepressant Physical exam: General: Very pleasant, no sign of distress HEENT: Sclera nonicteric, pupils bilateral equal reactive light extraocular muscles intact Heart: Regular S1 and S2 Lungs: Diminished, no wheeze or rales Abdomen: Soft nontender Extremities: No rash or deformity Neuro: Chronic left-sided weakness for prior CVA, normal strength on right upper and lower extremity, no other focal neurological deficit, patient is alert awake oriented x3 Breakthrough seizure Patient input from neurology, Keppra dose increased to 750 mg twice daily Patient has been tolerating well, no excessive sedation, No seizure episodes since admission Discharged with above dose of Keppra Outpatient follow-up with neurology narayan Bustamante for6 weeks UTI Urine culture: E. coli, Antibiotic changed to Ceftin per sensitivity complete total 5 days treatment Depression/anxiety disorder: She was on Effexor 37.5 mg daily, ordered to taper dose- 20 mg daily for 2 days- then discontinue (associated with breakthrough seizure) Psychiatric consulted for recommendation of SSRI Please refer to further documentation by Reena Garcia PA-C discussion of other chronic issues Maria Teresa Egan MD Subjective Patient was seen and examined in room 287 -2. Follow-up breakthrough seizure and UTI. Currently sitting up in bedside chair. Overall feels much improved this morning. Admits to being 90% better. Feels pain is much improved with warm compresses. Suprapubic pain has since resolved. Weakness is much improved. Has been ambulating to and from the bathroom without difficulty. Did participate with PT and OT yesterday. She is urging to be discharged so she is able to accompany her to first chemotherapy treatment tomorrow. Denies f/c/s, dizziness, chest pain, sob, n/v/d, abdominal pain. +Chronic low back pain. She feels back to baseline. Review of Systems Review of Systems: All systems reviewed & are unremarkable except as noted in HPI & below Physical Exam Physical Exam: Gen: WD/WN, female, sitting up in bedside chair, NAD, A&O x3 HEENT: Normocephalic, atraumatic, conjunctivae moist, sclerae anicteric, mucous membranes moist. Lung: Clear to Auscultation bilaterally, no wheezes/rales/rhonchi Heart: Regular rate, regular rhythm, no murmurs, rubs, or gallops, LACW venous access noted Abdomen: Soft, NT, ND +BS x 4 Extremities: No edema Skin: Warm, no rash, negative turgor. Results & Data Vital Signs (Past 12 Hours) Vital Signs Temp Pulse Pulse Resp BP Pulse Ox 03/24/19 11:33 89 16 138/85 96 03/24/19 07:00 36.8 C 84 16 118/75 94 03/24/19 04:22 36.7 C 73 18 92/56 L 95 03/24/19 00:57 85 Laboratory Results Short CBC 03/24/19 Range/Units 05:42 WBC 5.23 (4.8-10.8) K/uL Hgb 10.6 L (12.0-16.0) g/dL Hct 33.2 L (37-47) % Plt Count 98 L (130-400) K/uL BMP 03/24/19 05:42 Sodium 139 Potassium 4.3 D Chloride 104 Carbon Dioxide 28 BUN 14 Creatinine 0.99 Glucose 175 H Calcium 8.2 L Liver Function 03/24/19 Range/Units 05:42 Total Bilirubin 0.3 (0.2-1) mg/dl AST 22 (15-37) U/L ALT 12 (12-78) U/L Alkaline Phosphatase 105 (45-117) U/L Albumin 2.7 L (3.4-5.0) gm/dl Medications Administered Acetaminophen (Tylenol) 325 mg PO Q6H PRN PRN Reason: Pain or Fever Stop: 04/21/19 21:11 Last Admin: 03/23/19 20:51 Dose: 325 mg Documented by: [id number] Atenolol (Tenormin) 25 mg PO BID [facility] Stop: 04/22/19 08:59 Last Admin: 03/24/19 09:21 Dose: 25 mg Documented by: [id number] Admin: 03/23/19 20:18 Dose: 25 mg Documented by: [id number] Admin: 03/23/19 08:46 Dose: 25 mg Documented by: [id number] Atorvastatin Calcium (Lipitor) 40 mg PO DAILY [facility] Stop: 04/22/19 08:59 Last Admin: 03/24/19 09:19 Dose: 40 mg Documented by: [id number] Admin: 03/23/19 08:48 Dose: 40 mg Documented by: [id number] Cefuroxime Axetil (Ceftin) 250 mg PO BID [facility] Stop: 03/29/19 08:59 Last Admin: 03/24/19 09:54 Dose: 250 mg Documented by: [id number] Cyclobenzaprine HCl (Flexeril) 10 mg PO TID PRN PRN Reason: Muscle Spasm Stop: 04/22/19 11:55 Last Admin: 03/23/19 12:53 Dose: 10 mg Documented by: [id number] Gabapentin (Neurontin) 300 mg PO TID [facility] Stop: 04/22/19 13:59 Last Admin: 03/24/19 09:20 Dose: 300 mg Documented by: [id number] Admin: 03/23/19 20:19 Dose: 300 mg Documented by: [id number] Admin: 03/23/19 14:25 Dose: 300 mg Documented by: [id number] Heparin Sodium (Porcine) (Heparin Sod 100 Unit/Ml Flush) 5 ml FLUSH PRN PRN PRN Reason: Flush Stop: 04/22/19 04:08 Last Admin: 03/23/19 14:27 Dose: 5 ml Documented by: [id number] Insulin Aspart (Novolog Flexpen) 0 units SC [facility]; Protocol Stop: 04/22/19 16:29 Last Admin: 03/24/19 09:13 Dose: 22 units Documented by: [id number] Cosigned by: [id number] Admin: 03/23/19 20:23 Dose: Not Given Documented by: [id number] Cosigned by: [id number] Admin: 03/23/19 17:50 Dose: 13 units Documented by: [id number] Cosigned by: [id number] Insulin Human NPH (Novolin N Nph) 50 units SC QDB [facility]; Protocol Stop: 04/23/19 07:29 Last Admin: 03/24/19 09:15 Dose: 50 units Documented by: [id number] Cosigned by: [id number] Levetiracetam (Keppra) 750 mg PO BID [facility] Stop: 04/22/19 08:59 Last Admin: 03/24/19 09:18 Dose: 750 mg Documented by: [id number] Admin: 03/23/19 20:14 Dose: 750 mg Documented by: [id number] Admin: 03/23/19 08:47 Dose: 750 mg Documented by: [id number] Loratadine (Claritin) 10 mg PO DAILY [facility] Stop: 04/22/19 08:59 Last Admin: 03/24/19 09:17 Dose: 10 mg Documented by: [id number] Admin: 03/23/19 08:46 Dose: 10 mg Documented by: [id number] Magnesium Oxide (Mag-Ox) 400 mg PO DAILY [facility] Stop: 04/22/19 08:59 Last Admin: 03/24/19 09:19 Dose: 400 mg Documented by: [id number] Admin: 03/23/19 08:47 Dose: 400 mg Documented by: [id number] Morphine Sulfate (Morphine Sulfate) 2 mg IV Q6H PRN PRN Reason: Severe Pain Stop: 04/05/19 20:14 Last Admin: 03/23/19 20:13 Dose: 2 mg Documented by: [id number] Admin: 03/23/19 14:26 Dose: 2 mg Documented by: [id number] Oxycodone HCl (Roxicodone Immediate Rel) 5 - 10 mg PO Q4H PRN PRN Reason: Moderate Pain Stop: 04/05/19 21:11 Last Admin: 03/24/19 09:57 Dose: 10 mg Documented by: [id number] Admin: 03/23/19 15:27 Dose: 10 mg Documented by: [id number] Pantoprazole Sodium (Protonix) 40 mg PO BID [facility] Stop: 04/21/19 21:11 Last Admin: 03/24/19 09:20 Dose: 40 mg Documented by: [id number] Admin: 03/23/19 20:16 Dose: 40 mg Documented by: [id number] Admin: 03/23/19 08:46 Dose: 40 mg Documented by: [id number] Admin: 03/22/19 22:06 Dose: 40 mg Documented by: [id number] Quetiapine Fumarate (Seroquel) 50 mg PO [facility] Stop: 04/21/19 21:11 Last Admin: 03/23/19 20:17 Dose: 50 mg Documented by: [id number] Admin: 03/22/19 22:07 Dose: 50 mg Documented by: [id number] Quetiapine Fumarate (Seroquel) 300 mg PO [facility] Stop: 04/21/19 21:11 Last Admin: 03/23/19 20:15 Dose: 300 mg Documented by: [id number] Admin: 03/22/19 22:09 Dose: 300 mg Documented by: [id number] Senna/Docusate Sodium (Senokot S) 1 tab PO QAM [facility] Stop: 04/21/19 21:59 Last Admin: 03/24/19 09:20 Dose: 1 tab Documented by: [id number] Admin: 03/23/19 08:55 Dose: 1 tab Documented by: [id number] Admin: 03/22/19 22:15 Dose: Not Given Documented by: [id number] Spironolactone (Aldactone) 50 mg PO DAILY [facility] Stop: 04/23/19 08:59 Last Admin: 03/24/19 09:16 Dose: 50 mg Documented by: [id number] Trazodone HCl (Desyrel) 200 mg PO [facility] Stop: 04/21/19 21:11 Last Admin: 03/23/19 20:16 Dose: 200 mg Documented by: [id number] Admin: 03/22/19 22:11 Dose: 200 mg Documented by: [id number] Venlafaxine HCl (Effexor) 25 mg PO DAILY [facility] Stop: 03/25/19 09:01 Last Admin: 03/24/19 09:54 Dose: 25 mg Documented by: [id number] Discontinued Medications Acetaminophen (Tylenol) 1,000 mg PO NOW STA Stop: 03/22/19 15:47 Last Admin: 03/22/19 16:21 Dose: 1,000 mg Documented by: [id number] Diazepam (Valium) 5 mg IV NOW STA Stop: 03/22/19 17:21 Last Admin: 03/22/19 17:25 Dose: 5 mg Documented by: [id number] Gabapentin (Neurontin) 300 mg PO BID [facility] Stop: 04/21/19 21:11 Last Admin: 03/23/19 08:47 Dose: 300 mg Documented by: [id number] Admin: 03/22/19 22:09 Dose: 300 mg Documented by: [id number] Heparin Sodium (Porcine) (Heparin Sod 100 Unit/Ml Flush) Confirm Administered Dose 5 ml .ROUTE .STK-MED ONE Stop: 03/23/19 04:09 Last Admin: 03/23/19 04:12 Dose: 5 ml Documented by: [id number] Levetiracetam 1,000 mg/ (Dextrose) 110 mls @ 440 mls/hr IV NOW STA Stop: 03/22/19 16:00 Last Infusion: 03/22/19 16:44 Dose: 0 mls/hr Documented by: [id number] Admin: 03/22/19 16:21 Dose: 440 mls/hr Documented by: [id number] Sodium Chloride (Nss 1000ml) 1,000 mls @ 999 mls/hr IV .Q1H1M [facility]ARCIA Stop: 03/22/19 17:00 Last Infusion: 03/22/19 18:04 Dose: 0 mls/hr Documented by: [id number] Admin: 03/22/19 16:44 Dose: 999 mls/hr Documented by: [id number] Ceftriaxone Sodium (Rocephin) 2,000 mg in 70 mls @ 140 mls/hr IV NOW STA Stop: 03/22/19 17:35 Last Infusion: 03/22/19 18:04 Dose: 0 mls/hr Documented by: [id number] Admin: 03/22/19 17:16 Dose: 140 mls/hr Documented by: [id number] Magnesium Sulfate/Dextrose (Magnesium Sulfate / D5w) 1 gm in 100 mls @ 100 mls/hr IV ONE ONE Stop: 03/22/19 19:56 Last Infusion: 03/22/19 20:25 Dose: 0 mls/hr Documented by: [id number] Admin: 03/22/19 19:12 Dose: 100 mls/hr Documented by: [id number] Sodium Chloride (Nss) 500 mls @ 250 mls/hr IV .Q2H MARCIA Stop: 04/21/19 18:59 Last Infusion: 03/22/19 21:16 Dose: 0 mls/hr Documented by: [id number] Admin: 03/22/19 19:11 Dose: 250 mls/hr Documented by: [id number] Lorazepam (Ativan) 1 mg in 2 mls @ 2 mls/min IV NOW STA Stop: 03/22/19 18:58 Last Admin: 03/22/19 19:12 Dose: 2 mls/min Documented by: [id number] Ceftriaxone Sodium 2,000 mg/ (Dextrose) 70 mls @ 140 mls/hr IV Q24H MARCIA Stop: 03/31/19 16:29 Last Infusion: 03/23/19 17:16 Dose: 0 mls/hr Documented by: [id number] Admin: 03/23/19 16:41 Dose: 140 mls/hr Documented by: [id number] Insulin Aspart (Novolog Flexpen) 0 units SC 0200 [facility]; Protocol Stop: 03/24/19 02:01 Last Admin: 03/24/19 01:56 Dose: Not Given Documented by: [id number] Cosigned by: [id number] Insulin Glargine (Lantus Solostar Pen) 10 units SC NOW STA Stop: 03/22/19 19:36 Last Admin: 03/22/19 20:02 Dose: Not Given Documented by: [id number] Cosigned by: [id number] Insulin Human NPH (Novolin N Nph) 40 units SC BIDM [facility]; Protocol Stop: 04/22/19 16:59 Last Admin: 03/23/19 17:53 Dose: 40 units Documented by: [id number] Cosigned by: [id number] Insulin Human Regular (Insulin Regular Pump) 1 ea N/A ACHS [facility]; Protocol Stop: 03/23/19 16:30 Last Admin: 03/23/19 17:01 Dose: Not Given Documented by: [id number] Admin: 03/23/19 12:47 Dose: 1 ea Documented by: [id number] Cosigned by: [id number] Admin: 03/23/19 08:55 Dose: 1 ea Documented by: [id number] Cosigned by: [id number] Miscellaneous (Pending Order) 1 ea N/A TODAY@1630 [facility] Stop: 03/23/19 16:31 Last Admin: 03/23/19 17:02 Dose: 1 ea Documented by: [id number] Morphine Sulfate (Morphine Sulfate) 4 mg IV NOW STA Stop: 03/22/19 15:47 Last Admin: 03/22/19 16:21 Dose: 4 mg Documented by: [id number] Morphine Sulfate (Morphine Sulfate) 4 mg IV ONE ONE Stop: 03/22/19 18:06 Last Admin: 03/22/19 17:58 Dose: 4 mg Documented by: [id number] Morphine Sulfate (Morphine Sulfate) 4 mg IV Q6H PRN PRN Reason: Pain Stop: 04/05/19 20:14 Last Admin: 03/22/19 22:23 Dose: 4 mg Documented by: [id number] Morphine Sulfate (Morphine Sulfate) 2 mg IV Q6H PRN PRN Reason: Pain Stop: 04/05/19 20:14 Last Admin: 03/23/19 03:59 Dose: 2 mg Documented by: [id number] Oxycodone HCl (Roxicodone Immediate Rel) 5 mg PO NOW STA Stop: 03/22/19 20:13 Last Admin: 03/22/19 20:24 Dose: 5 mg Documented by: [id number] Oxycodone HCl (Roxicodone Immediate Rel) 5 - 10 mg PO Q4H PRN PRN Reason: Pain Stop: 04/05/19 21:11 Last Admin: 03/23/19 10:26 Dose: 10 mg Documented by: [id number] Admin: 03/23/19 05:55 Dose: 10 mg Documented by: [id number] Admin: 03/22/19 23:15 Dose: 10 mg Documented by: [id number] Potassium Chloride (Klor-Con M20) 40 meq PO NOW STA Stop: 03/23/19 12:59 Last Admin: 03/23/19 14:25 Dose: 40 meq Documented by: [id number] Venlafaxine HCl (Effexor Extended Release) 37.5 mg PO DAILY [facility] Stop: 04/22/19 08:59 Last Admin: 03/23/19 08:46 Dose: 37.5 mg Documented by: [id number] (1) UTI (urinary tract infection) Hematuria presence: without hematuria Urinary tract infection type: site unspecified Qualified Code(s): N39.0 - Urinary tract infection, site not specified (2) Chronic pain Chronic pain type: other chronic pain Qualified Code(s): G89.29 - Other chronic pain (3) T2DM (type 2 diabetes mellitus) Diabetes mellitus complication status: without complication Diabetes mellitus intel recruiter insulin use: with intel recruiter use Qualified Code(s): E11.9 - Type 2 diabetes mellitus without complications; Z79.4 - apprentice (current) use of insulin (4) Anemia Anemia type: unspecified type Qualified Code(s): D64.9 - Anemia, unspecified
[2019-03-24] MEDS: MoRPHine SULFATE 2 MG/ML CARP IV PRN ×2 (12:15→20:30)
[2019-03-24] MEDS ORDERED: INSULIN HUMAN NPH SC ONE (12:30)
[2019-03-24] MEDS: LOSARTAN POTASSIUM 25 MG TAB PO SCH (14:37)
[2019-03-24] MEDS: KETOROLAC 30 MG/ML VIAL IV PRN (14:39)
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
[2019-03-24] MEDS ORDERED: INSULIN HUMAN REGULAR SC PRN (18:14)
[2019-03-24] MEDS ORDERED: HumuLIN-R 10 ML VIAL SC PRN (18:15)
[2019-03-24] MEDS: TRAZODONE HCL 100 MG TAB PO SCH (20:40)
[2019-03-24] MEDS: QUETIAPINE FUMARATE 300 MG TABLET PO SCH (20:41)
[2019-03-24] MEDS: QUETIAPINE FUMARATE 25 MG TABLET PO SCH (20:44)
[2019-03-24] MEDS: INSULIN REGULAR PUMP SCH (20:46)
[2019-03-25] MEDS: MoRPHine SULFATE 2 MG/ML CARP IV PRN ×2 (04:03→12:33)
[2019-03-25] MEDS: INSULIN REGULAR PUMP SCH (08:37)
[2019-03-25] MEDS: OXYCODONE HCL IR 5 MG TAB (IMMEDIATE RELEASE) PO PRN (08:37)
[2019-03-25] MEDS: ATENOLOL 25 MG TABLET PO SCH (08:39)
[2019-03-25] MEDS: SPIRONOLACTONE 25 MG TAB PO SCH (08:42)
[2019-03-25] MEDS: cefUROXime axetil 250 MG TABLET PO SCH (08:43)
[2019-03-25] MEDS: LOSARTAN POTASSIUM 25 MG TAB PO SCH (08:44)
[2019-03-25] MEDS: VENLAFAXINE HCL 50 MG TAB PO SCH (08:44)
[2019-03-25] MEDS: LORATADINE 10 MG TAB PO SCH (08:44)
[2019-03-25] MEDS: MAGNESIUM OXIDE 400 MG TAB PO SCH (08:47)
[2019-03-25] MEDS: ATORVASTATIN 40 MG TAB PO SCH (08:47)
[2019-03-25] MEDS: DOCUSATE SODIUM/SENNA 50/8.6MG TAB PO SCH (08:48)
[2019-03-25] MEDS: PANTOprazole 40 MG TAB PO SCH (08:48)
[2019-03-25] MEDS: GABAPENTIN 300 MG CAP PO SCH (08:48)
[2019-03-25] MEDS ORDERED: FUROSEMIDE 40 MG TAB PO SCH (09:00)
--- NOTE | 2019-03-25 09:21 | Hospitalist Progress Note ---
Date of Service March 25, 2019 Assessment & Plan (1) Seizure: This is a 48-year-old female with significant PMH of IDDM 2, HTN, HLD, diabetic gastroparesis, Pearce cirrhosis, liver lesions followed by [facility], DONNA on CPAP, chronic pain, bipolar disorder, anxiety, epilepsy who presented to [facility] ED on 03/22 secondary to breakthrough seizure and UTI- like symptoms. Keppra increased to 750mg bid seizure precautions Tx UTI with antibiotic pharmacy managing insulin regimen - appreciate their input Continue PT/OT Pain regimen -IV morphine prn, oxycodone prn, flexeril prn Pt on multiple psych meds - ? 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: follows hepatology in [place] on aldactone and lasix for volume management no signs of volume overload, or H.E.- NH3 normal on admission pt reports hx of liver cancer hepatology notes reviewed - follow hepatic lesion with US/CT scan routinely, AFP wnl, un sure if actual dx of hepatocellular ca continue lasix and KCL monitor volume status (5) Anemia: H&H stable at 10.6 and 33.2 No Signs or symptoms of bleeding monitor h/h (6) Thrombocytopenia: plt ct stable at 98 coags normal likely in setting of liver dz monitor daily (7) T2DM (type 2 diabetes mellitus): insulin dependent on pump glycemic pharmacy consulted - appreciate their input pt back on insulin pump, resume metformin A1C 7.0 02/14/19 (8) Bipolar disorder: mood currently stable, but affect flat on trazodone, seroquel, venlafaxine taper venlafaxine secondary to ability to lower seizure threshold Psychiatry consult -patient uneasy about stopping venlafaxine and requesting possibility of additional agent due to bipolar depression and current multiple stressors in life with passing of mother and starting cancer tx apprecaite psych input pt will need to coordinate with outpt neurology and psychiatry to adjust regimen (9) Chronic pain: pt on chronic hydrocodone and gabapentin at home hold hydrocodone PRN oxycodone, morphine for severe pain flexeril 10mg tid prn for muscle spasm warm compresses TID (10) DVT prophylaxis: SCD/TEDS hold chemical prophylaxis in setting of thrombocytopenia Disposition:Medically stable to be discharged home today Follow up: PCP Dr. Weldon upon discharge Patient was seen and examined in collaboration with Dr. Egan, please see addendum Supervising Physician Co-Signing Physician Notes Attending addendum: Patient seen and examined, care coordinated with Reena Garcia PA-C This is a 48-year-old female with past medical history of seizure disorder hypertension, type 2 diabetes on insulin pump, Admitted with breakthrough seizure, Keppra dose increased to 750 mg twice daily, has been doing well, Awake and alert today feels energy is much better, generalized weakness has resolved Activity is back to baseline Effexor is tapered down to discontinue, as it associated with breakthrough seizure Psych consult appreciated Physical exam: General: Very pleasant, no sign of distress HEENT: Sclera nonicteric, pupils bilateral equal reactive light extraocular muscles intact Heart: Regular S1 and S2 Lungs: Diminished, no wheeze or rales Abdomen: Soft nontender Extremities: No rash or deformity Neuro: Chronic left-sided weakness for prior CVA, normal strength on right upper and lower extremity, no other focal neurological deficit, patient is alert awake oriented x3 Breakthrough seizure Patient input from neurology, Keppra dose increased to 750 mg twice daily Patient has been tolerating well, no excessive sedation, No seizure episodes since admission Discharged with above dose of Keppra Outpatient follow-up with neurology narayan Bustamante for6 weeks UTI Urine culture: E. coli, Antibiotic changed to Ceftin per sensitivity complete total 5 days treatment Depression/anxiety disorder: She was on Effexor 37.5 mg daily, ordered to taper dose- 20 mg daily for 2 days- then discontinue (associated with breakthrough seizure) Psychiatric consulted for recommendation appreciated ordered vistaril for Anxiety out pt follow up with Psychiatry and Psychotherapy recommended pt is medically stable to be discharged home today Maria Teresa Egan MD Subjective Patient was seen and examined in room 287 -2. Follow-up breakthrough seizure and UTI. Currently sitting up in bedside chair. Feels good this morning. Complains of increased low back pain and intermittent suprapubic pain/pressure. Slept better last night. Now has insulin pump in place and blood sugars controlled. Is anxious for her husbands first chemo treatment today. Denies f/c/s, dizziness, lightheaded, chest pain, sob, n/v. Good appetite and tolerating po intake. Still concerned regarding anxiety/depression and stressors. Review of Systems Review of Systems: All systems reviewed & are unremarkable except as noted in HPI & below Physical Exam Physical Exam: Gen: WD/WN, F, sitting up in bed, NAD, A&O x3 HEENT: Normocephalic, atraumatic, conjunctivae moist, sclerae anicteric, mucous membranes moist. Lung: Clear to Auscultation bilaterally, no wheezes/rales/rhonchi , LACW vascular access dressing CDI Heart: Regular rate, regular rhythm, no murmurs, rubs, or gallops Abdomen: Soft, NT, ND +BS x 4 Extremities: No edema Skin: Warm, no rash, negative turgor. Results & Data Vital Signs (Past 12 Hours) Vital Signs Temp Pulse Resp BP Pulse Ox 03/25/19 07:40 36.7 C 64 16 125/79 92 03/24/19 23:52 36.6 C 78 18 102/65 97 Medications Administered Acetaminophen (Tylenol) 325 mg PO Q6H PRN PRN Reason: Pain or Fever Stop: 04/21/19 21:11 Last Admin: 03/23/19 20:51 Dose: 325 mg Documented by: [id number] Atenolol (Tenormin) 25 mg PO BID [facility] Stop: 04/22/19 08:59 Last Admin: 03/25/19 08:39 Dose: 25 mg Documented by: [id number] Admin: 03/24/19 20:40 Dose: 25 mg Documented by: [id number] Admin: 03/24/19 09:21 Dose: 25 mg Documented by: [id number] Admin: 03/23/19 20:18 Dose: 25 mg Documented by: [id number] Admin: 03/23/19 08:46 Dose: 25 mg Documented by: [id number] Atorvastatin Calcium (Lipitor) 40 mg PO DAILY [facility] Stop: 04/22/19 08:59 Last Admin: 03/25/19 08:47 Dose: 40 mg Documented by: [id number] Admin: 03/24/19 09:19 Dose: 40 mg Documented by: [id number] Admin: 03/23/19 08:48 Dose: 40 mg Documented by: [id number] Cefuroxime Axetil (Ceftin) 250 mg PO BID [facility] Stop: 03/29/19 08:59 Last Admin: 03/25/19 08:43 Dose: 250 mg Documented by: [id number] Admin: 03/24/19 20:36 Dose: 250 mg Documented by: [id number] Admin: 03/24/19 09:54 Dose: 250 mg Documented by: [id number] Cyclobenzaprine HCl (Flexeril) 10 mg PO TID PRN PRN Reason: Muscle Spasm Stop: 04/22/19 11:55 Last Admin: 03/23/19 12:53 Dose: 10 mg Documented by: [id number] Furosemide (Lasix) 40 mg PO DAILY [facility] Stop: 04/24/19 08:59 Last Admin: 03/25/19 08:46 Dose: 40 mg Documented by: [id number] Gabapentin (Neurontin) 300 mg PO TID [facility] Stop: 04/22/19 13:59 Last Admin: 03/25/19 08:48 Dose: 300 mg Documented by: [id number] Admin: 03/24/19 20:42 Dose: 300 mg Documented by: [id number] Admin: 03/24/19 14:38 Dose: 300 mg Documented by: [id number] Admin: 03/24/19 09:20 Dose: 300 mg Documented by: [id number] Admin: 03/23/19 20:19 Dose: 300 mg Documented by: [id number] Admin: 03/23/19 14:25 Dose: 300 mg Documented by: [id number] Heparin Sodium (Porcine) (Heparin Sod 100 Unit/Ml Flush) 5 ml FLUSH PRN PRN PRN Reason: Flush Stop: 04/22/19 04:08 Last Admin: 03/23/19 14:27 Dose: 5 ml Documented by: [id number] Insulin Human Regular (Insulin Regular Pump) 1 ea N/A ACHS [facility]; Protocol Stop: 04/23/19 20:59 Last Admin: 03/25/19 08:37 Dose: 1 ea Documented by: [id number] Cosigned by: [id number] Admin: 03/24/19 20:46 Dose: 1 ea Documented by: [id number] Cosigned by: [id number] Ketorolac Tromethamine (Toradol) 30 mg IV Q6H PRN PRN Reason: Pain Stop: 03/29/19 13:38 Last Admin: 03/24/19 14:39 Dose: 30 mg Documented by: [id number] Levetiracetam (Keppra) 750 mg PO BID [facility] Stop: 04/22/19 08:59 Last Admin: 03/24/19 20:38 Dose: 750 mg Documented by: [id number] Admin: 03/24/19 09:18 Dose: 750 mg Documented by: [id number] Admin: 03/23/19 20:14 Dose: 750 mg Documented by: [id number] Admin: 03/23/19 08:47 Dose: 750 mg Documented by: [id number] Loratadine (Claritin) 10 mg PO DAILY [facility] Stop: 04/22/19 08:59 Last Admin: 03/25/19 08:44 Dose: 10 mg Documented by: [id number] Admin: 03/24/19 09:17 Dose: 10 mg Documented by: [id number] Admin: 03/23/19 08:46 Dose: 10 mg Documented by: [id number] Losartan Potassium (Cozaar) 25 mg PO DAILY [facility] Stop: 04/23/19 12:59 Last Admin: 03/25/19 08:44 Dose: 25 mg Documented by: [id number] Admin: 03/24/19 14:37 Dose: 25 mg Documented by: [id number] Magnesium Oxide (Mag-Ox) 400 mg PO DAILY [facility] Stop: 04/22/19 08:59 Last Admin: 03/25/19 08:47 Dose: 400 mg Documented by: [id number] Admin: 03/24/19 09:19 Dose: 400 mg Documented by: [id number] Admin: 03/23/19 08:47 Dose: 400 mg Documented by: [id number] Morphine Sulfate (Morphine Sulfate) 2 mg IV Q6H PRN PRN Reason: Severe Pain Stop: 04/05/19 20:14 Last Admin: 03/25/19 04:03 Dose: 2 mg Documented by: [id number] Admin: 03/24/19 20:30 Dose: 2 mg Documented by: [id number] Admin: 03/24/19 12:15 Dose: 2 mg Documented by: [id number] Admin: 03/23/19 20:13 Dose: 2 mg Documented by: [id number] Admin: 03/23/19 14:26 Dose: 2 mg Documented by: [id number] Oxycodone HCl (Roxicodone Immediate Rel) 5 - 10 mg PO Q4H PRN PRN Reason: Moderate Pain Stop: 04/05/19 21:11 Last Admin: 03/25/19 08:37 Dose: 10 mg Documented by: [id number] Admin: 03/24/19 21:55 Dose: 10 mg Documented by: [id number] Admin: 03/24/19 16:38 Dose: 10 mg Documented by: [id number] Admin: 03/24/19 09:57 Dose: 10 mg Documented by: [id number] Admin: 03/23/19 15:27 Dose: 10 mg Documented by: [id number] Pantoprazole Sodium (Protonix) 40 mg PO BID [facility] Stop: 04/21/19 21:11 Last Admin: 03/25/19 08:48 Dose: 40 mg Documented by: [id number] Admin: 03/24/19 20:45 Dose: 40 mg Documented by: [id number] Admin: 03/24/19 09:20 Dose: 40 mg Documented by: [id number] Admin: 03/23/19 20:16 Dose: 40 mg Documented by: [id number] Admin: 03/23/19 08:46 Dose: 40 mg Documented by: [id number] Admin: 03/22/19 22:06 Dose: 40 mg Documented by: [id number] Quetiapine Fumarate (Seroquel) 50 mg PO HS [facility] Stop: 04/21/19 21:11 Last Admin: 03/24/19 20:44 Dose: 50 mg Documented by: [id number] Admin: 03/23/19 20:17 Dose: 50 mg Documented by: [id number] Admin: 03/22/19 22:07 Dose: 50 mg Documented by: [id number] Quetiapine Fumarate (Seroquel) 300 mg PO HS [facility] Stop: 04/21/19 21:11 Last Admin: 03/24/19 20:41 Dose: 300 mg Documented by: [id number] Admin: 03/23/19 20:15 Dose: 300 mg Documented by: [id number] Admin: 03/22/19 22:09 Dose: 300 mg Documented by: [id number] Senna/Docusate Sodium (Senokot S) 1 tab PO QAM [facility] Stop: 04/21/19 21:59 Last Admin: 03/25/19 08:48 Dose: 1 tab Documented by: [id number] Admin: 03/24/19 09:20 Dose: 1 tab Documented by: [id number] Admin: 03/23/19 08:55 Dose: 1 tab Documented by: [id number] Admin: 03/22/19 22:15 Dose: Not Given Documented by: [id number] Spironolactone (Aldactone) 50 mg PO DAILY [facility] Stop: 04/23/19 08:59 Last Admin: 03/25/19 08:42 Dose: 50 mg Documented by: [id number] Admin: 03/24/19 09:16 Dose: 50 mg Documented by: [id number] Trazodone HCl (Desyrel) 200 mg PO HS [facility] Stop: 04/21/19 21:11 Last Admin: 03/24/19 20:40 Dose: 200 mg Documented by: [id number] Admin: 03/23/19 20:16 Dose: 200 mg Documented by: [id number] Admin: 03/22/19 22:11 Dose: 200 mg Documented by: [id number] Discontinued Medications Acetaminophen (Tylenol) 1,000 mg PO NOW STA Stop: 03/22/19 15:47 Last Admin: 03/22/19 16:21 Dose: 1,000 mg Documented by: [id number] Diazepam (Valium) 5 mg IV NOW STA Stop: 03/22/19 17:21 Last Admin: 03/22/19 17:25 Dose: 5 mg Documented by: [id number] Gabapentin (Neurontin) 300 mg PO BID [facility] Stop: 04/21/19 21:11 Last Admin: 03/23/19 08:47 Dose: 300 mg Documented by: [id number] Admin: 03/22/19 22:09 Dose: 300 mg Documented by: [id number] Heparin Sodium (Porcine) (Heparin Sod 100 Unit/Ml Flush) Confirm Administered Dose 5 ml .ROUTE .STK-MED ONE Stop: 03/23/19 04:09 Last Admin: 03/23/19 04:12 Dose: 5 ml Documented by: [id number] Levetiracetam 1,000 mg/ (Dextrose) 110 mls @ 440 mls/hr IV NOW STA Stop: 03/22/19 16:00 Last Infusion: 03/22/19 16:44 Dose: 0 mls/hr Documented by: [id number] Admin: 03/22/19 16:21 Dose: 440 mls/hr Documented by: [id number] Sodium Chloride (Nss 1000ml) 1,000 mls @ 999 mls/hr IV .Q1H1M [facility] Stop: 03/22/19 17:00 Last Infusion: 03/22/19 18:04 Dose: 0 mls/hr Documented by: [id number] Admin: 03/22/19 16:44 Dose: 999 mls/hr Documented by: [id number] Ceftriaxone Sodium (Rocephin) 2,000 mg in 70 mls @ 140 mls/hr IV NOW STA Stop: 03/22/19 17:35 Last Infusion: 03/22/19 18:04 Dose: 0 mls/hr Documented by: [id number] Admin: 03/22/19 17:16 Dose: 140 mls/hr Documented by: [id number] Magnesium Sulfate/Dextrose (Magnesium Sulfate / D5w) 1 gm in 100 mls @ 100 mls/hr IV ONE ONE Stop: 03/22/19 19:56 Last Infusion: 03/22/19 20:25 Dose: 0 mls/hr Documented by: [id number] Admin: 03/22/19 19:12 Dose: 100 mls/hr Documented by: [id number] Sodium Chloride (Nss) 500 mls @ 250 mls/hr IV .Q2H [facility] Stop: 04/21/19 18:59 Last Infusion: 03/22/19 21:16 Dose: 0 mls/hr Documented by: [id number] Admin: 03/22/19 19:11 Dose: 250 mls/hr Documented by: [id number] Lorazepam (Ativan) 1 mg in 2 mls @ 2 mls/min IV NOW STA Stop: 03/22/19 18:58 Last Admin: 03/22/19 19:12 Dose: 2 mls/min Documented by: [id number] Ceftriaxone Sodium 2,000 mg/ (Dextrose) 70 mls @ 140 mls/hr IV Q24H [facility] Stop: 03/31/19 16:29 Last Infusion: 03/23/19 17:16 Dose: 0 mls/hr Documented by: [id number] Admin: 03/23/19 16:41 Dose: 140 mls/hr Documented by: [id number] Insulin Aspart (Novolog Flexpen) 0 units SC ACHS [facility]; Protocol Stop: 04/22/19 16:29 Last Admin: 03/24/19 17:56 Dose: 13 units Documented by: [id number] Cosigned by: [id number] Admin: 03/24/19 12:13 Dose: 29 units Documented by: [id number] Cosigned by: [id number] Admin: 03/24/19 09:13 Dose: 22 units Documented by: [id number] Cosigned by: [id number] Admin: 03/23/19 20:23 Dose: Not Given Documented by: [id number] Cosigned by: [id number] Admin: 03/23/19 17:50 Dose: 13 units Documented by: [id number] Cosigned by: [id number] Insulin Aspart (Novolog Flexpen) 0 units SC 0200 [facility]; Protocol Stop: 03/24/19 02:01 Last Admin: 03/24/19 01:56 Dose: Not Given Documented by: [id number] Cosigned by: [id number] Insulin Glargine (Lantus Solostar Pen) 10 units SC NOW STA Stop: 03/22/19 19:36 Last Admin: 03/22/19 20:02 Dose: Not Given Documented by: [id number] Cosigned by: [id number] Insulin Human NPH (Novolin N Nph) 40 units SC BIDM [facility]; Protocol Stop: 04/22/19 16:59 Last Admin: 03/23/19 17:53 Dose: 40 units Documented by: [id number] Cosigned by: [id number] Insulin Human NPH (Novolin N Nph) 50 units SC QDB [facility]; Protocol Stop: 04/23/19 07:29 Last Admin: 03/24/19 09:15 Dose: 50 units Documented by: [id number] Cosigned by: [id number] Insulin Human NPH (Novolin N Nph) 20 units SC ONE ONE; Protocol Stop: 03/24/19 12:31 Last Admin: 03/24/19 12:43 Dose: 20 units Documented by: [id number] Cosigned by: [id number] Insulin Human Regular (Insulin Regular Pump) 1 ea N/A [facility]; Protocol Stop: 03/23/19 16:30 Last Admin: 03/23/19 17:01 Dose: Not Given Documented by: [id number] Admin: 03/23/19 12:47 Dose: 1 ea Documented by: [id number] Cosigned by: [id number] Admin: 03/23/19 08:55 Dose: 1 ea Documented by: [id number] Cosigned by: [id number] Miscellaneous (Pending Order) 1 ea N/A TODAY@1630 [facility] Stop: 03/23/19 16:31 Last Admin: 03/23/19 17:02 Dose: 1 ea Documented by: [id number] Miscellaneous (Pending Order) 1 ea N/A TODAY@1700 [facility] Stop: 03/24/19 20:00 Last Admin: 03/24/19 17:37 Dose: Not Given Documented by: [id number] Morphine Sulfate (Morphine Sulfate) 4 mg IV NOW STA Stop: 03/22/19 15:47 Last Admin: 03/22/19 16:21 Dose: 4 mg Documented by: [id number] Morphine Sulfate (Morphine Sulfate) 4 mg IV ONE ONE Stop: 03/22/19 18:06 Last Admin: 03/22/19 17:58 Dose: 4 mg Documented by: [id number] Morphine Sulfate (Morphine Sulfate) 4 mg IV Q6H PRN PRN Reason: Pain Stop: 04/05/19 20:14 Last Admin: 03/22/19 22:23 Dose: 4 mg Documented by: [id number] Morphine Sulfate (Morphine Sulfate) 2 mg IV Q6H PRN PRN Reason: Pain Stop: 04/05/19 20:14 Last Admin: 03/23/19 03:59 Dose: 2 mg Documented by: [id number] Oxycodone HCl (Roxicodone Immediate Rel) 5 mg PO NOW STA Stop: 03/22/19 20:13 Last Admin: 03/22/19 20:24 Dose: 5 mg Documented by: [id number] Oxycodone HCl (Roxicodone Immediate Rel) 5 - 10 mg PO Q4H PRN PRN Reason: Pain Stop: 04/05/19 21:11 Last Admin: 03/23/19 10:26 Dose: 10 mg Documented by: [id number] Admin: 03/23/19 05:55 Dose: 10 mg Documented by: [id number] Admin: 03/22/19 23:15 Dose: 10 mg Documented by: [id number] Potassium Chloride (Klor-Con M20) 40 meq PO NOW STA Stop: 03/23/19 12:59 Last Admin: 03/23/19 14:25 Dose: 40 meq Documented by: [id number] Venlafaxine HCl (Effexor Extended Release) 37.5 mg PO DAILY [facility] Stop: 04/22/19 08:59 Last Admin: 03/23/19 08:46 Dose: 37.5 mg Documented by: [id number] Venlafaxine HCl (Effexor) 25 mg PO DAILY [facility] Stop: 03/25/19 09:01 Last Admin: 03/25/19 08:44 Dose: 25 mg Documented by: [id number] Admin: 03/24/19 09:54 Dose: 25 mg Documented by: [id number] (1) UTI (urinary tract infection) Hematuria presence: without hematuria Urinary tract infection type: site unspecified Qualified Code(s): N39.0 - Urinary tract infection, site not specified (2) Chronic pain Chronic pain type: other chronic pain Qualified Code(s): G89.29 - Other chronic pain (3) T2DM (type 2 diabetes mellitus) Diabetes mellitus complication status: without complication Diabetes mellitus ocean transportation intermediary insulin use: with nursing home use Qualified Code(s): E11.9 - Type 2 diabetes mellitus without complications; Z79.4 - alf (current) use of insulin (4) Anemia Anemia type: unspecified type Qualified Code(s): D64.9 - Anemia, unspecified
--- NOTE | 2019-03-25 09:40 | Discharge Summary ---
Date of Service March 25, 2019 Admission HPI Per Admitting Provider Carmen Tyson is a 48-year-old female admitted medically on 03/22/19 after experiencing a breakthrough seizure. Pt was admitted for adjustment of seizure medications, and treatment for a UTI. Psychiatric consultation was requested to assist with medication for diagnoses of bipolar disorder and anxiety. After seen by neurology, it was recommended that the patient's dose of venlafaxine 37.5mg be discontinued. Pt is cooperative with psychiatric consultation to discuss these medication changes. Patient's case was reviewed with psychiatric nurse liaison and psychiatrist. Admission documentation reviewed. Pt was observed to be in bed finishing lunch upon this provider's arrival to her room. Pt shares with this provider the multiple stressors she has been managing over the past several months. She states she has been diagnosed with liver cancer, her was diagnosed with melanoma which has metastasized, and her mother had just over 1 week ago. Pt states, "that will be enough to make your head spin." When asked how patient felt she was managing these stressors, she states, "Seriously? I'm a mess, I hide it." She states that she cries "all day" and spends a lot of time in bed. She also reports panic attacks. Pt admits to sleeping well last evening in the hospital, but report poor sleep at home for the past 2 weeks, waking about every 2 hours. On top of the above stressors, she also admits to financial stress. Depressive symptoms include low mood, isolative behavior, increased desire to remain in bed, lower self-esteem, decreased appetite, and hopelessness. Pt adm its to thoughts to "escape", but denies active SI - stating, "the only positive thing is that I'm going to have my first grandbaby in August. That's enough to keep me going." Pt reports a diagnosis of bipolar disorder. During elevated mood phases, she endorses increased spending and more hyper behavior. She states this can last from 1 day to 1 week. She admits it has been "a long time" since her last manic episode. Pt also endorses diagnoses of bulimia and anorexia - stating she continues to purge at times. She admits to purging 3-4 times since her mother's 1 week ago. Pt admits that "the fact that I ate all of my lunch today freaks me out. Normally I don't eat. I cook for my family, but I don't eat." Pt denies HI, SIB, A/V hallucinations, paranoia, OCD, PTSD, and other specific psychiatric symptoms. Admission Exam Per Admitting Provider GENERAL: Comfortable, slightly anxious, obese, no respiratory distress SKIN: Pallor, warm HEENT: Pale palpebral conjunctivae, no ptosis, dry buccal mucosa NECK : Supple, short neck, no tenderness CHEST : CTA, no tenderness HEART : RRR, no obvious murmurs ABDOMEN: Chronic distention, epigastric tenderness (chronic as per patient) EXTREMITIES : Bilateral LE swelling, no LE tenderness, no other conspicuous deformities noted NEUROLOGIC : Coherent, no facial asymmetry, MMTs RUE/RLE 4/5, LUE/LLE 3/5; pronator drift left Principal Diagnosis Breakthrough seizure UTI Hypomagnesemia Insulin-dependent type 2 DM Chronic pain syndrome Bipolar disorder Anxiety Discharge Exam Gen: WD/WN, F, sitting up in bed, NAD, A&O x3 HEENT: Normocephalic, atraumatic, conjunctivae moist, sclerae anicteric, mucous membranes moist. Lung: Clear to Auscultation bilaterally, no wheezes/rales/rhonchi , LACW vascular access dressing CDI Heart: Regular rate, regular rhythm, no murmurs, rubs, or gallops Abdomen: Soft, NT, ND +BS x 4 Extremities: No edema Skin: Warm, no rash, negative turgor. Discharge Data Allergies Allergy/AdvReac Type Severity Reaction Status Date / Time naproxen Allergy Unknown BLEEDING Verified 03/22/19 16:17 Consultations Neurology Consultation: (1) Seizure: 1. keppra 500 mg BID increased to 750 mg BID- further adjustments as needed as outpatient 2. headache- gabepentin 300 mg TID - using for chronic pain and headache- continue mg++ ox 400 mg and riboflavin 400 mg daily would not use ultram for pain can lower seizure threshold follow up neurology Yesenia ESPINOSA 4-6 weeks Psych Consultation: Impression / Recommendations Impression 48-year-old female admitted medically on 03/22/19 s/p breakthrough seizure. Pt was admitted with complaints of weakness, found to also have a UTI which is being treated. Patient does have a reported history of anxiety and bipolar disorder, in regards to psychiatric diagnoses. Psychiatric consultation is requested for assistance with venlafaxine taper and discussion about supplemental medications for mood and anxiety. Documentation from neurology consult suggests discontinuation of venlafaxine due to risk of lowering seizure threshold. While this seems reasonable, it is difficult to discuss replacement antidepressant medications as all possibilities, with some risk of lowering seizure threshold. 37.5 mg of venlafaxine is a low dose, it is unclear how much this medication ventricular would be contributing to her breakthrough seizures. However if plan remains to taper the medication, agree with reducing dose to 25 mg for 2 days and then discontinue. Reviewed with patient signs and symptoms of discontinuation syndrome, and would recommend slower taper should these occur. As patient's primary concern at this time is management of breakthrough anxiety symptoms, we will defer initiation of a different antidepressant medication until patient's seizure disorder is better stabilized. Patient does admit to being able to manage anxiety behaviorally for the most part; however, does request medication that could be helpful on an as-needed basis for acute anxiety and panic attacks. Discussed multiple possibilities with this patient, but did discuss possibility of interactions with other medications and possible risk of lowering seizure threshold. There are multiple considerations that could be made if desires to stick with current medications. Could consider as needed dosing of quetiapine 12.5-25 mg every 6 hours as needed for acute anxiety. Could also consider low-dose trazodone 25 mg every 6 hours as needed for acute anxiety. It would also be possible to consider the use of hydroxyzine 25 mg as needed for acute anxiety as well. Titration of her current dosage of gabapentin may be another option, as this medication can reduce anxiety as well. Additional dosing of atenolol or propranolol may be another consideration if desiring to target acute anxiety. As discussed above, these medication adjustments would need to fit within the larger treatment goal for the patient, as many can contribute to lowering seizure threshold or may have interactions with other medications. Risks, benefits, and potential side effects of these considerations were reviewed with the patient, who verbalized understanding but desire for medications to be reviewed with the treatment team. While it would be ideal to streamline patient's medication regimen to reduce polypharmacy, this would require input from multiple services to coordinate appropriate medication regimens to meet all treatment goals. From a psychiatric perspective, levetiracetam is not a preferred antiepileptic medication due to it commonly contributing to worsened mood. Ideally, patient seizure disorder would be managed with an antiepileptic medication that would also provide mood benefit such as lamotrigine or gabapentin. It is possible to consider titration of gabapentin, which may provide multiple benefits to the seizure management, improve stability of mood, likely better pain control, and reduction of anxiety. Depending on anticipated duration of admission, we would be happy to work with the neurology service to coordinate these changes if desired. Patient does admit to prior history of overusing pain medication, therefore would use caution with continued prescribing of benzodiazepines or other medications with abuse potential. Ideally, patient's anxiety would be managed with medications that provide benefit for her mood disorder or seizure disorder as well. Dr. Bindu Carrasquillo was directly involved in review and discussion of the patient's case and participated in medical decision making regarding treatment recommendations. CONSIDERATIONS: - Can considering the following changes based on input from other services, and benefit to larger treatment goals - 1. Titration of gabapentin to target seizures, with likely benefit for anxiety management and mood stability 2. Low-dose trazodone or quetiapine q6h prn for acute anxiety 3. Use of hydroxyzine for prn anxiety 4. Additional dosing of atenolol or propranolol for anxiety Will not plan to restart antidepressant medications, as all are associated with some degree of risk of lowering seizure threshold - this can be considered on an outpatient basis once seizure disorder is better controlled. It is possible to better optimize patient's medication regimen to target seizure disorder, anxiety, and depression - though will likely take several adjustments. Would be happy to provide input if patient's hospitalization would allow for more significant medication adjustments. Ordered Studies CT Head: IMPRESSION: No acute intracranial abnormality. CT Abd/Pelvis: IMPRESSION: 1. Nonobstructing left nephrolithiasis. No ureteral calculi or obstructive uropathy. 2. No bowel obstruction or bowel wall thickening. Normal appendix. 3. Mild to moderate fecal retention. 4. Hepatosplenomegaly with cirrhotic liver disease. 5. Trace free pelvic fluid. 6. Additional findings as above. Lumbar Spine: IMPRESSION: 1. No lumbar spine fracture. 2. Mild multilevel degenerative disc disease and facet arthrosis within the lumbar spine. Hospital Course (1) Seizure: This is a 48-year-old female with significant PMH of IDDM 2, HTN, HLD, diabetic gastroparesis, Pearce cirrhosis, liver lesions [place] [facility] [place] on CPAP, chronic pain, bipolar disorder, anxiety, epilepsy who presented to [facility] ED on 03/22 secondary to breakthrough seizure and UTI- like symptoms. Patient received IV Keppra load in ED. Neurology recommended increasing Keppra to 700 mg twice daily. It was recommended to taper her off Effexor secondary to ability to lower seizure threshold. She was initially on 37.5 mg daily. She was tapered down to 25 mg x 2 days and then discontinued. Because of this inpatient psychiatry was consulted to assist with bipolar depression management. They feel her epilepsy may be better managed with medications that can also assist with mood disorder like Lamictal or titrating up of gabapentin. They did recommend hydroxyzine as needed for anxiety. She was found to have UTI which was treated empirically with IV Rocephin. Urine culture returned greater than 100 K E. coli. She was transitioned to oral Ceftin 250 mg to complete a 5-day course. Her magnesium was low and this was replaced. Her hospital course was complicated secondary to insulin-dependent diabetes. Her insulin pump was removed secondary to running out of supplies. Glycemic pharmacy was on board managing her blood sugars. She has history of chronic pain and this was exacerbated during her hospitalization requiring IV morphine, warm heat and Tylenol. At discharge patient was requesting changing her outpatient hydrocodone to something stronger. It was discussed that this was not recommended, and it is encouraged that she try to utilize [id number] ibuprofen 400 mg every 6 hours as needed, warm moist heat, stretching and strengthening exercises and as needed Tylenol (no more than 2g daily give liver disease.) Requesting patient follow-up with her primary care provider regarding additional narcotic supply. She was seen by PT/OT and felt patient safe to discharge home. 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: follows hepatology in [place] on aldactone and lasix for volume management no signs of volume overload, or H.E.- NH3 normal on admission pt reports hx of liver cancer hepatology notes reviewed - follow hepatic lesion with US/CT scan routinely, AFP wnl, un sure if actual dx of hepatocellular ca continue lasix and KCL (5) Anemia: H&H stable at 10.6 and 33.2 No Signs or symptoms of bleeding (6) Thrombocytopenia: plt ct stable at 98 coags normal likely in setting of liver dz (7) T2DM (type 2 diabetes mellitus): insulin dependent on pump glycemic pharmacy consulted - appreciate their input pt back on insulin pump, resume metformin on discharge A1C 7.0 02/14/19 (8) Bipolar disorder: mood currently stable, but affect flat on trazodone, seroquel, venlafaxine taper venlafaxine secondary to ability to lower seizure threshold Psychiatry consult -patient uneasy about stopping venlafaxine and requesting possibility of additional agent for depression and anxiety disorder pt feels overwhelmed with current multiple stressors in life with passing of mother and starting cancer tx apprecaite psych input consider the use of hydroxyzine 25 mg as needed for acute anxiety as well pt will need to coordinate with outpt neurology and psychiatry to adjust regimen (9) Chronic pain: pt on chronic hydrocodone and gabapentin at home hold hydrocodone PRN oxycodone, morphine for severe pain flexeril 10mg tid prn for muscle spasm warm compresses TID (10) DVT prophylaxis: SCD/TEDS hold chemical prophylaxis in setting of thrombocytopenia Disposition:Medically stable to be discharged home today Follow up: PCP Dr. Weldon upon discharge Patient was seen and examined in collaboration with Dr. Egan, please see addendum Total Time Total Time Spent Total Time Spent (In Minutes): 75 minutes Total Time Includes: Examination of the Patient, Discharge Planning, Medication Reconciliation and Communication With Other Providers Discharge Plan Discharge Items Patient Disposition: Home - Self-Care Reason For Visit: BREAKTHROUGH SEIZURE,L SIDED WEAKNESS Discharge Diagnosis: Breakthrough Seizure UTI Insulin dependent diabetes Bipolar Depression Anxiety Condition on Discharge: Good Activity: Resume your previous activity Lifting: None Bathing: No limitations Exercise/Sports: Gradually increase as tolerated Driving/Machine Use: Do not Drive until cleared from Neurology due to Seizure Weightbearing: Full weightbearing Non-emergency contact: Primary Care Provider, Hospitalist and Neurologist Call non-emergency contact if: you have any medication questions, your pain is not controlled, your pain is worsening, your pain is concerning for you and you have a fever Follow-up/Referrals: MTM, Pharmacy [Other] - 03/30/19 9:00 am (Diabetes management) Scott Weldon MD [Primary Care Provider] - 03/28/19 9:45 am Yesenia Wayne PA-C [Physician [employer] Supervisor] - 03/31/19 10:40 am Diet: Carb Consistent or DM2 Addtl Attending Provider Instructions: MEDICATION CHANGES: Keppra was increased to 750mg twice daily You were started on Cefuroxime 250mg twice daily for additional two days for UTI You were started on hydroxyzine 25mg bid as needed for anxiety SUMMARY OF TEST RESULTS/HOSPITAL COURSE You were admitted to [facility] secondary to breakthrough seizure and urinary tract infection. Your urine culture grew E. coli and you are being treated with the appropriate antibiotic. Due to breakthrough seizure you had CT scan of head that revealed no acute abnormality. It is felt that you had breakthrough seizure secondary to urinary tract infection as well as the medication Effexor. Effexor can lower your seizure threshold and therefore you were tapered off this medication. Psychiatry was consulted due to your bipolar depression and current life stressors - recommendations are to trial hydroxyzine as needed for anxiety Psych recommends follow up with outpatient psych and neurology to obtain better regimen to control Bipolar and Seizure disorder PENDING TEST RESULTS: None RECOMMENDATIONS FOR FOLLOW-UP: Complete your antibiotic as prescribed for treatment of your UTI. Take increased dose of Keppra 750mg twice daily. Take all other medications as prescribed. Please keep all of your follow up appointments with your Primary Doctor and Specialists. We recommend obtaining a Life Alert device due to your seizure history and you being alone at times Absolutely no driving until cleared by your neurologist due to seizure. OTHER INSTRUCTIONS: Seek medical attention if you have: * temperature above 101 * chest pain or trouble breathing * abdominal pain, nausea, vomiting * diarrhea, dark stools or bloody stools * any unanswered questions or concerns Call 911 if symptoms are severe. Please take good care of yourself. Call if you have any questions or problems. You can reach a [facility] hospitalist on duty at [facility] 24 hours a day by calling [phone]. My pager number # is [phone]. Pending Studies at Discharge: No Stand-Alone Forms: My [facility] Medications and DC Order Prescriptions: New cefuroxime axetil 250 mg Tablet 250 mg PO BID 2 Days Qty: 4 RF: 0 hydroxyzine HCl 25 mg tablet 25 mg PO BID PRN (Reason: anxiety) 7 Days Qty: 14 RF: 0 Continued furosemide [Lasix] 40 mg tablet 40 mg PO DAILY RF: 0 atorvastatin [Lipitor] 40 mg tablet 40 mg PO DAILY RF: 0 quetiapine [Seroquel] 300 mg tablet 300 mg PO HS RF: 0 atenolol 100 mg Tablet 100 mg PO BID RF: 0 ondansetron HCl [Zofran] 4 mg Tablet 4 mg PO QID PRN (Reason: Nausea) RF: 0 potassium chloride 10 mEq Tablet Extended Release 10 meq PO BID RF: 0 alprazolam [Xanax] 0.5 mg Tablet 0.5 mg PO UD PRN (Reason: ANXIETY PRIOR TO MRI) RF: 0 magnesium oxide [MagOx] 400 mg (241.3 mg magnesium) tablet 400 mg PO DAILY RF: 0 metoclopramide HCl [Reglan] 5 mg Tablet 5 mg PO AC PRN (Reason: Nausea) RF: 0 trazodone 100 mg tablet 200 mg PO HS RF: 0 dicyclomine 20 mg tablet 20 mg PO BID PRN (Reason: PAIN/CRAMPING) RF: 0 meclizine 25 mg Tablet 25 mg PO TID PRN (Reason: DIZZYNESS) RF: 0 metformin [Glucophage] 1,000 mg tablet 1,000 mg PO BIDM RF: 0 losartan [Cozaar] 25 mg tablet 25 mg PO DAILY RF: 0 ibuprofen 200 mg Tablet 600 mg PO UD PRN (Reason: Pain) RF: 0 omeprazole 20 mg capsule,delayed release(DR/EC) 20 mg PO BID RF: 0 loratadine [Claritin] 10 mg Tablet 10 mg PO DAILY RF: 0 spironolactone [Aldactone] 50 mg tablet 50 mg PO DAILY RF: 0 quetiapine [Seroquel] 50 mg tablet 50 mg PO HS RF: 0 hydrocodone-acetaminophen 5-325 mg tablet 1 tab PO Q6 PRN (Reason: Pain) RF: 0 Novolin R Regular U-100 Insuln 100 unit/mL solution continuous subcutaneous infusion DIRECTED RF: 0 gabapentin 300 mg Capsule 300 mg PO TID RF: 0 Changed levetiracetam [Keppra] 500 mg tablet 750 mg PO BID Qty: 60 RF: 3 Discontinued venlafaxine [Effexor XR] 37.5 mg capsule,extended release 24hr 37.5 mg PO DAILY RF: 0 Discharge Orders: Discharge Order (Routine); Ordered 03/25/19 Ordered By: Reena Mendoza Admission Data Admit Date/Time: 03/23/19 12:43 Attending Provider: Maria Teresa Egan Admit Provider: Jaun Latham Primary Care Provider: Scott Weldon Other Providers: Jaun Latham ; Alex Reyna ; Steffen Mccarty Other Interventions: Discharge Summary Assessment (RN) Last Done: 03/25/19 11:25 Supervising Physician Co-Signing Physician Notes Attending addendum: Patient seen and examined, care coordinated with Reena Garcia PA-C This is a 48-year-old female with past medical history of seizure disorder hypertension, type 2 diabetes on insulin pump, Admitted with breakthrough seizure, Keppra dose increased to 750 mg twice daily, has been doing well, Awake and alert today feels energy is much better, generalized weakness has resolved Activity is back to baseline Effexor is tapered down to discontinue, as it associated with breakthrough seizure Psych consult appreciated Physical exam: General: Very pleasant, no sign of distress HEENT: Sclera nonicteric, pupils bilateral equal reactive light extraocular muscles intact Heart: Regular S1 and S2 Lungs: Diminished, no wheeze or rales Abdomen: Soft nontender Extremities: No rash or deformity Neuro: Chronic left-sided weakness for prior CVA, normal strength on right upper and lower extremity, no other focal neurological deficit, patient is alert awake oriented x3 Breakthrough seizure Patient input from neurology, Keppra dose increased to 750 mg twice daily Patient has been tolerating well, no excessive sedation, No seizure episodes since admission Discharged with above dose of Keppra Outpatient follow-up with neurology narayan Bustamante for6 weeks UTI Urine culture: E. coli, Antibiotic changed to Ceftin per sensitivity complete total 5 days treatment Depression/anxiety disorder: She was on Effexor 37.5 mg daily, ordered to taper dose- 20 mg daily for 2 days- then discontinue (associated with breakthrough seizure) Psychiatric consulted for recommendation appreciated ordered vistaril for Anxiety out pt follow up with Psychiatry and Psychotherapy recommended pt is medically stable to be discharged home today Maria Teresa Egan MD
[2019-03-25] MEDS: HEPARIN 100 UNIT/ML 5ML FLUSH FLUSH PRN ×2 (09:50→12:54)
--- NOTE | 2019-03-25 10:17 | Pharmacy Report ---
Pharmacy Glycemic Short Note 2 - Date of Service March 25, 2019 - Glycemic Short BSG Results (Last 24 hours): 03/24/19 03/24/19 03/24/19 12:09 14:24 16:40 POC Glucose 270 H 180 H 132 H 03/24/19 03/25/19 20:26 07:23 POC Glucose 146 H 105 H OUTPATIENT ANTIDIABETIC REGIMEN: * Metformin 1 gm BID * Regular insulin continuous SC infusion via pump * Basal rates: 4.75 units/hr from 00-08, 5.75 units/hr from 08-00 (~130 units/day) * CF: 5 * CR: 3 * A1c = 7 % (02/14/19) * Patient follows with Karina at [facility] ASSESSMENT: 03/25 * Carmen was successfully transitioned back to her pump (with updated overnight basal rate of 3.75 units/hr) last evening once her son brought in supplies * No hypoglycemia overnight. Fasting BSG = 105 mg/dL. * Carmen is feeling great and anxious about discharge today 03/24 * Carmen was transitioned off her insulin pump to SQ injections yesterday d/t decreasing BSGs and unable to refill her pump without supplies here * BSGs overnight were stable (goal was NO hypoglycemia) but are starting to climb this AM * Fasting BSG = 225 mg/dL; initially increased basal by 20% but will add more with lunch as BSG has increased further. Patient concerned about elevated BS Gs. * Pre-lunch BSG artificially elevated d/t late administration of AM Novolog. Recheck of BSG down to 180 mg/dL at 1430 (~2 hrs after additional dose of NPH given as well). * ZIGGY Pratt, spoke w/ outpatient pharmacist to obtain recs for new basal settings. She recommended overnight rate to decrease by 20% to 3.75 units/hr. Santa made these changes today in preparation for discharge. * Patient reports that her son will likely be in w/ pump supplies tonight so will plan to transition back to her pump to see how her new settings work prior to discharge 03/23 * TB is a 48 year-old female who presented to [facility] with breakthrough seizure on 03/22/19 * Patient has PMH of type 2 DM (managed with insulin pump), chronic left-sided weakness, HTN, hx of NAFLD cirrhosis/liver lesions, and chronic anemia * Patient currently receiving ceftriaxone IV for treatment of possible UTI * Per interview with patient, she has a sporadic appetite with resultant hypoglycemia at times (symptomatic 50-60s mg/dL) * Patient has planned follow-up with Karina at [facility] next week * BSG on admission of 338 mg/dL -> down to 101 mg/dL this morning (will follow) * Plan was for patient to manage own insulin pump while inpatient, but glycemic pharmacist notified that patient was low on insulin and a family member wouldn't be able to bring in supplies this evening. Will transition to SC basal/bolus insulin regimen for the interim. * Pump site last changed on 03/22 -> Again, pump to be removed tonight at 1630 PLAN FOR INPATIENT GLYCEMIC CONTROL: * Continue to hold outpatient oral diabetes medications * Continue Regular insulin via pump * Basal 1: 0000 - 3.75 units/hr * Basal 2: 0800 - 5.75 units/hr * CF: 5 * CR: 3 PLAN FOR DISCHARGE: * CDE to speak with pharmacist at [facility], who manages outpatient insulin. Will plan to reduce basal settings on pump prior to discharge to prevent further overnight hypoglycemia at home. * Update -> patient can continue pump on discharge as basal settings have been reduced as noted above. Patient has f/u with Karina at [facility] next week.
[2019-03-25] MEDS: KETOROLAC 30 MG/ML VIAL IV PRN (10:23)
[2019-03-25] MEDS: levETIRAcetam 250 MG TAB PO SCH (10:25)
== END 2019-03-25 13:57 | disposition home or self-care (01) | DRG 101 ==
LOC: ED 15:11 → 2N 15:11

== ENCOUNTER 2019-04-18 19:17 | Inpatient (IN) ==
[2019-04-18] MEDS ORDERED: ONDANSETRON INJ 2 MG/ML 2 ML VIAL IV STA (19:42)
[2019-04-18] MEDS ORDERED: SODIUM CHLORIDE 0.9% 1000ML 1,000 ML IV SCH (19:45)
[2019-04-18] MEDS: HYDROmorphone INJ 1 MG/ML SYRINGE IV PRN ×3 (21:12→23:22)
[2019-04-18 21:28] LABS: Basophils # (auto) 0.02 K/uL (0-0.2); Basophils % (auto) 0.3 %; Eosinophils # (auto) 0.21 K/uL (0-0.5); Eosinophils % (auto) 3.1 %; Hematocrit (blood only) 35.8 % (37-47); Hemoglobin 11.5 g/dL (12.0-16.0); Immature Granulocytes # (auto) 0.01 K/uL (0.00-0.02); Immature Granulocytes % (auto) 0.1 %; Lymphocytes # (auto) 1.99 K/uL (1.2-3.4); Lymphocytes % (auto) 29.5 %; Mean Corpuscular Hemoglobin 26.9 pg (25-34); Mean Corpuscular Hgb Conc 32.1 g/dL (32-36); Mean Corpuscular Volume 83.8 fL (80-100); Mean Platelet Volume 9.1 fL (7.4-10.4); Monocytes # (auto) 0.63 K/uL (0.11-0.59); Monocytes % (auto) 9.3 %; Neutrophils # (auto) 3.89 K/uL (1.4-6.5); Neutrophils % (auto) 57.7 %; Platelet Count 114 K/uL (130-400); RDW Coefficient of Variation 14.6 % (11.5-14.5); RDW Standard Deviation 44.4 fL (36.4-46.3); Red Blood Count 4.27 M/uL (4.2-5.4); White Blood Count 6.75 K/uL (4.8-10.8)
[2019-04-18 21:34] LABS: Albumin Level 3.3 gm/dl (3.4-5.0); Calcium 8.8 mg/dl (8.5-10.1); Creatinine Clr Calc Pharmacy 63.1 ml/min; Est GFR (African American) 59.2; Est GFR (Non-African American) 51.1; Magnesium 1.8 mg/dl (1.8-2.4); Potassium 3.8 mmol/L (3.5-5.1)
[2019-04-18 21:37] LABS: Albumin Globulin Ratio 0.8 (0.9-2); Bilirubin,Total 0.3 mg/dl (0.2-1); Globulin 4.3 gm/dl (2.5-4.0); Total Protein 7.6 gm/dl (6.4-8.2)
[2019-04-19] MEDS: HYDROmorphone INJ 1 MG/ML SYRINGE IV PRN (01:34)
[2019-04-19] MEDS ORDERED: NITROGLYCERIN SL 0.4 MG/TAB TAB SL PRN (01:58)
[2019-04-19] MEDS ORDERED: ALPRAZolam 0.5 MG TABLET PO PRN (01:58)
[2019-04-19] MEDS ORDERED: HYDROmorphone INJ 0.5 MG/0.5 ML SYR IV STA (01:58)
[2019-04-19] MEDS ORDERED: DICYCLOMINE HCL 20 MG TAB PO PRN (01:58)
[2019-04-19] MEDS ORDERED: TIZANIDINE HCL 4 MG TABLET PO PRN (01:58)
[2019-04-19] MEDS ORDERED: LORATADINE 10 MG TAB PO PRN (01:58)
[2019-04-19] MEDS ORDERED: NovoLIN-R INSULIN PER UNIT CHARGE SQ SCH (01:58)
[2019-04-19] MEDS ORDERED: ONDANSETRON 4 MG TAB PO PRN (01:58)
[2019-04-19] MEDS ORDERED: LORazepam 1.5 MG/3 ML VIAL IV PRN (01:58)
[2019-04-19] MEDS ORDERED: ONDANSETRON INJ 2 MG/ML 2 ML VIAL IV PRN (01:58)
[2019-04-19] MEDS ORDERED: MECLIZINE HCL 25 MG TAB PO PRN (01:58)
[2019-04-19] MEDS ORDERED: METOCLOPRAMIDE HCL 5 MG TABLET PO PRN (01:58)
[2019-04-19] MEDS ORDERED: OXYCODONE HCL IR 5 MG TAB (IMMEDIATE RELEASE) ONE (03:20)
[2019-04-19] MEDS ORDERED: PHARMACY GLYCEMIC MGMT CONSULT PRN (04:24)
[2019-04-19] MEDS ORDERED: IBUPROFEN 600 MG TAB PO PRN (04:34)
--- NOTE | 2019-04-19 04:43 | History and Physical Report ---
DATE OF ADMISSION: 04/19/2019 CHIEF COMPLAINT: Seizures. HISTORY OF PRESENT ILLNESS: This is a 48-year-old female with past medical history significant for insulin-dependent diabetes type 2, on insulin pump, MENDEZ cirrhosis, chronic pain, lumbago, obstructive sleep apnea, on CPAP, bipolar disorder, hypertension, hyperlipidemia, history of liver lesions, getting frequent scans and follows with [facility], next scan is in May, history of seizures, who presents with seizure episode. The patient was seen in the hospital in February and March with seizure episodes and she is on gabapentin and also she was started on Keppra initially at 500 b.i.d., on last admission it was increased to 750 b.i.d. The patient says on Thursday she was feeling weak and tired and she slept whole day and yesterday, on Thursday, she had a seizure episode which was not noticed by anyone in the house. She does not know how long it lasted, but she bit her tongue.She lives with her and son. She had an episode of seizure again today in the house, her son thought it lasted about 2 minutes and she again bit her tongue and had urinary incontinence and she was confused for some time. At that time, they decided to bring her to the hospital and in the hospital parking area again she had 1 more episode, her noticed it, and she was brought into the hospital. Currently, she is alert and awake and oriented. She says during this episode also she bit her tongue, behind of the tongue, and also had some urinary incontinence. She says she is taking her seizure medication regularly. She was supposed to get eeg coming . She is feeling some dizziness on and off and some blurred visions on and off. Had some headache. She had some itchiness in the ears. Had some mild postnasal drip, no cough, no sore throat, no fever, no chills. No difficulty swallowing. Appetite is okay. No chest pain or shortness of breath. Was feeling nauseous, but no vomiting. Last Thursday, she had some abdominal pain in the epigastric region, but that is resolved now, but she always has some right upper quadrant abdominal pain and chronic back pain. Denies any diarrhea or constipation. No blood in the stools or black stools. Normal bladder movements. No burning micturition, no hematuria. No swelling in the legs. No rash seen. Currently resting comfortably and hemodynamically stable. The ER physician talked to the neurologist powder monkey and was recommended to give Keppra 1 gram b.i.d. ALLERGIES: ALEVE. PAST MEDICAL HISTORY: As mentioned above. PAST SURGICAL HISTORY: Colonoscopy, EGD with biopsy, did get endoscopic ultrasound, hysteroscopy, lumbar spinal shot, insertion of A-port, CT-guided needle aspiration biopsy, ligation of the oviduct. MEDICATIONS: Currently, the patient is on oxycodone IR 5 mg every 6 hours p.r.n., Seroquel 600 mg p.o. at bedtime, Zanaflex 4 mg p.o. q. 8 hours p.r.n., hydroxyzine 50 mg p.o. q.6h. p.r.n., gabapentin 300 mg p.o. t.i.d., Ativan 0.5 mg p.o. daily p.r.n., atorvastatin 40 mg p.o. daily, potassium chloride 10 mEq p.o. b.i.d., Claritin 10 mg p.o. daily p.r.n., Keppra 750 mg p.o. b.i.d., trazodone 200 mg at bedtime, Bentyl 20 mg p.o. b.i.d. p.r.n., losartan 25 mg p.o. daily, magnesium oxide 400 mg p.o. daily, Lasix 40 mg p.o. daily, metformin 1000 mg p.o. b.i.d., Reglan 5 mg p.o. a.c., spironolactone 50 mg p.o. daily, insulin pump, omeprazole 20 mg p.o. b.i.d., Zofran 4 mg p.o. q. 6 hours p.r.n., atenolol 100 mg p.o. b.i.d., ibuprofen 600 mg p.r.n., meclizine 25 mg p.o. t.i.d. p.r.n., MiraLax p.r.n. FAMILY HISTORY: Significant for mother had COPD, hypertension, depression, emphysema. Father had stroke in 30's smoked, diabetes, eye problems, CAD with CABG. Brother has hypertension, diabetes. SOCIAL HISTORY: , lives with and son. No smoking, no alcohol, no drug use. REVIEW OF SYSTEMS: As per HPI. Rest of review of systems negative. PHYSICAL EXAMINATION: GENERAL: The patient is obese, not in acute distress. VITAL SIGNS: Temperature 36.8, pulse 93, respiratory rate 22, blood pressure 137/92, oxygen 95% on room air. HEENT: No pallor, no icterus. Pupils equal, round, reactive to light. NECK: No JVD, no neck masses, no carotid bruits. CARDIOVASCULAR: S1, S2 heard, regular rate and rhythm, no murmur, no gallop. RESPIRATORY SYSTEM: Normal AP diameter. No accessory muscle use. No wheezing, no crackles. ABDOMEN: Soft, bowel sounds present. There is mild right upper quadrant tenderness. Mild guarding, no rigidity, no distention. CENTRAL NERVOUS SYSTEM: Cranial nerves II-XII grossly intact, nonfocal. EXTREMITIES: No edema, no erythema. LABORATORY DATA: WBC 6.7, hemoglobin 11.5, hematocrit 35.8, platelets 114. Sodium 138, potassium 3.8, chloride 100, bicarbonate 33, BUN 16, creatinine 1.6, serum glucose 124, calcium 8.8, magnesium 1.8, AST 26, ALT 17, alkaline phosphatase 125. EKG: Normal sinus rhythm with nonspecific T-wave abnormality at a rate of 90, no significant change from previous ECG. ASSESSMENT AND PLAN: This is a 48-year-old female who presents with seizures. 1. Breakthrough seizures. The patient is on Keppra 750 b.i.d. which was increased last admission. Presented with a few episodes of seizures at home, lasting approximately 2 minutes with biting of tongue and urinary incontinence as per the patient. Currently resting comfortably. ER called neurology powder monkey, increased Keppra to 1000 b.i.d. IV, one dose was given in the ER, will monitor. We will check the Keppra level. Seizure precautions. IV Ativan p.r.n. for breakthrough seizures. EEG in the a.m. Neurology consult. Closely monitor in the tele floor. 2. Liver lesions, follows with hepatology at [facility]. Gets scans every 2-3 months. Supposed to get a CAT scan in May. So far, stable since last 1 year. 3 MENDEZ cirrhosis on Lasix and Aldactone with potassium supplement. Low sodium diet. 3. Diabetes, on insulin pump.. The patient wants to continue on insulin pump. Also t will be placed on insulin sliding scale and consult glycemic pharmacy. 4. Hypertension, on atenolol and losartan. We will monitor the blood pressure. 5. Hyperlipidemia, on statin. 6. Bipolar disorder, venlafaxine was stopped last admission because it has seizure lowering potential,. Seroquel dose was increased, and also hydroxyzine was added.On Trazodone. 7. Sleep apnea, on CPAP at bedtime. 8. Chronic pain. Continue home pain medication of gabapentin, Zanaflex, and oxycodone p.r.n. 9. Acute kidney injury, creatinine of 1.2, baseline creatinine 0.9. We will follow the labs. If worsening, we will hold diuretics and losartan. 10. Thrombocytopenia from liver cirrhosis. Platelets are stable at 114. We will follow the labs. 11. Deep venous thrombosis prophylaxis, sequential compression devices for now. 12. Disposition: Closely monitor in tele floor. Level 1 full code. MTDD
[2019-04-19] MEDS ORDERED: OXYCODONE HCL IR 5 MG TAB (IMMEDIATE RELEASE) PO ONE (05:00)
[2019-04-19] MEDS ORDERED: Nursing to Pharmacy Communication ONE (05:12)
[2019-04-19] MEDS ORDERED: CARBOHYDRATES FOR HYPOGLYCEMIA PO PRN (05:30)
[2019-04-19] MEDS ORDERED: INSULIN REGULAR SC PRN (05:30)
[2019-04-19] MEDS ORDERED: GLUCOSE 10 TABS/TUBE PO PRN (05:30)
[2019-04-19] MEDS ORDERED: DEXTROSE 50% 50 ML SYRINGE IV PRN (05:30)
[2019-04-19] MEDS ORDERED: GLUCAGON FOR INJ 1 MG VIAL SQ PRN (05:30)
[2019-04-19] MEDS ORDERED: GLUCOSE 40% GEL 15 GM TUBE PO PRN (05:30)
[2019-04-19] MEDS ORDERED: HEPARIN 100 UNIT/ML 5ML FLUSH FLUSH PRN (06:11)
[2019-04-19 06:59] LABS: Basophils # (auto) 0.03 K/uL (0-0.2); Basophils % (auto) 0.4 %; Eosinophils # (auto) 0.22 K/uL (0-0.5); Eosinophils % (auto) 3.3 %; Hematocrit (blood only) 34.1 % (37-47); Immature Granulocytes # (auto) 0.02 K/uL (0.00-0.02); Immature Granulocytes % (auto) 0.3 %; Lymphocytes # (auto) 2.35 K/uL (1.2-3.4); Lymphocytes % (auto) 35.1 %; Mean Corpuscular Hemoglobin 27.4 pg (25-34); Mean Corpuscular Hgb Conc 32.3 g/dL (32-36); Mean Corpuscular Volume 84.8 fL (80-100); Mean Platelet Volume 9.2 fL (7.4-10.4); Monocytes # (auto) 0.52 K/uL (0.11-0.59); Monocytes % (auto) 7.8 %; Neutrophils # (auto) 3.56 K/uL (1.4-6.5); Neutrophils % (auto) 53.1 %; Platelet Count 109 K/uL (130-400); RDW Coefficient of Variation 14.4 % (11.5-14.5); RDW Standard Deviation 45.1 fL (36.4-46.3); Red Blood Count 4.02 M/uL (4.2-5.4)
[2019-04-19 07:04] LABS: Estimated Average Glucose 180 mg/dl; Hemoglobin A1C 7.9 % (4.5-5.6)
[2019-04-19] MEDS ORDERED: INSULIN HUMAN REGULAR SC SCH (07:30)
[2019-04-19] MEDS ORDERED: INSULIN ASPART 100 UNITS/ML 3 ML PEN SC SCH (07:30)
[2019-04-19 07:33] LABS: Est GFR (African American) 68.2; Potassium 4.2 mmol/L (3.5-5.1)
[2019-04-19 07:34] LABS: BUN Creatinine Ratio 17.4 (10-20); Calcium 8.3 mg/dl (8.5-10.1); Est GFR (Non-African American) 58.9
[2019-04-19] MEDS: OXYCODONE HCL IR 5 MG TAB (IMMEDIATE RELEASE) PO PRN ×2 (07:58→14:57)
[2019-04-19] MEDS ORDERED: FUROSEMIDE 40 MG TAB PO SCH (09:00)
[2019-04-19] MEDS ORDERED: SPIRONOLACTONE 25 MG TAB PO SCH (09:00)
[2019-04-19] MEDS ORDERED: LOSARTAN POTASSIUM 25 MG TAB PO SCH (09:00)
[2019-04-19] MEDS ORDERED: MAGNESIUM OXIDE 400 MG TAB PO SCH (09:00)
[2019-04-19] MEDS ORDERED: ATORVASTATIN 40 MG TAB PO SCH (09:00)
[2019-04-19] MEDS: INSULIN REGULAR PUMP SCH ×4 (09:41→20:31)
[2019-04-19] MEDS: GABAPENTIN 300 MG CAP PO SCH ×3 (09:43→20:09)
[2019-04-19] MEDS: PANTOprazole 40 MG TAB PO SCH ×2 (09:44→20:09)
[2019-04-19] MEDS: ATENOLOL 50 MG TABLET PO SCH ×2 (09:44→20:08)
[2019-04-19] MEDS: POTASSIUM CHLORIDE 10 MEQ TABCR PO SCH ×2 (09:47→20:10)
[2019-04-19] MEDS ORDERED: INSULIN HUMAN REGULAR SC PRN (10:45)
--- NOTE | 2019-04-19 11:46 | Pharmacy Report ---
Glycemic Control Consultation - Date of Service April 19, 2019 - Scope Scope: Glycemic Pharmacist consulted for glycemic control and to write orders per [facility] inpatient glycemic control protocol - Objective Weight: 97 kg Accjewelecks BSG (last 24hrs): 04/18/19 04/19/19 04/19/19 20:57 02:12 06:46 Glucose 124 H 114 H POC Glucose 147 H 04/19/19 04/19/19 07:16 11:16 Glucose POC Glucose 119 H 187 H Laboratory Data (last 24hrs): 04/18/19 04/19/19 20:57 06:46 Potassium 3.8 4.2 Carbon Dioxide 33 H 32 Anion Gap 5.0 4.0 Creatinine 1.26 H 1.12 Est Cr Clr Drug Dosing 63.1 71.0 HbA1c: Hemoglobin A1c 7.9 % (4.5-5.6) H 04/19/19 06:46 - Recent Pertinent Medications Outpatient Anti-diabetic Regimen: * Novolin-R insulin pump * Metformin 1 g po BIDM * A1c = 7.9 % on 04/19/19 The patient is currently receiving: * Home Novolin-R insulin pump Risk Factors for Insulin Resistance: * Diet: T2DM - Assessment & Plan Assessment & Plan: ASSESSMENT: * 48 yo F with adequate outpatient control of T2DM on Novolin-R insulin pump plus metformin * Admitted for seizure (not precipitated by hypoglycemic event per admission BSG's). * No significant physiologic stressors that would significantly alter inpatient as compared to outpatient insulin requirements - OK to continue patient's own insulin pump * Pharmacy to follow BSG and intervene in the event of significant hypo- or hyperglycemia * Nursing to follow Policy Number [id number].[id number] "Insulin Pump Policy", including the followin. Evaluate the patient for competency to use own insulin pump 2. Once competency has been established, admitting RN will have patient read and sign consent form CF [id number] Insulin Pump Therapy Patient Agreement. 3. Admitting RN will also provide and explain to patient form [id number] Flowsheet for Patient Performed Blood Glucose Monitoring 4. In the event that the patient becomes temporarily unable to manage their pump, the RN will notify the physician and obtain orders to 1) discontinue the pump, and 2) manage the patient with frequent BSG's guiding an adjusted scale of short or rapid acting insulin administered subcutaneous. 5. Document in nurses notes: patient assessment to use own pump completed, education provided on pump policy and medication, & required forms given and explained to patient PLAN FOR INPATIENT GLYCEMIC CONTROL: * Holding outpatient oral diabetes medications * Continue home insulin pump. Follow hospital insulin pump policy, including documentation of BSG and also bolus insulin from the pump * Please note that the plan above was derived based on current level of insulin resistance and hospital stress. These recommendations are appropriate for inpatient admission only. Plan of care upon discharge will need to be reassessed to avoid potential outpatient hypo/hyperglycemia. Thank you.
--- NOTE | 2019-04-19 14:36 | Hospitalist Progress Note ---
Date of Service April 19, 2019 Subjective 48 yo F with Results & Data Vital Signs (Past 12 Hours) Vital Signs Temp Pulse Pulse Resp BP Pulse Ox 04/19/19 11:02 36.5 C 79 18 99/66 L 92 04/19/19 07:46 97/64 L 04/19/19 07:37 36.4 C L 85 16 92 04/19/19 03:35 95 H 16 92
--- NOTE | 2019-04-19 14:54 | Discharge Summary ---
Date of Service April 19, 2019 Admission HPI Per Admitting Provider HISTORY OF PRESENT ILLNESS: This is a 48-year-old female with past medical history significant for insulin-dependent diabetes type 2, on insulin pump, MENDEZ cirrhosis, chronic pain, lumbago, obstructive sleep apnea, on CPAP, bipolar disorder, hypertension, hyperlipidemia, history of liver lesions, getting frequent scans and follows with [facility], next scan is in May, history of seizures, who presents with seizure episode. The patient was seen in the hospital in February and March with seizure episodes and she is on gabapentin and also she was started on Keppra initially at 500 b.i.d., on last admission it was increased to 750 b.i.d. The patient says on Thursday she was feeling weak and tired and she slept whole day and yesterday, on Thursday, she had a seizure episode which was not noticed by anyone in the house. She does not know how long it lasted, but she bit her tongue.She lives with her and son. She had an episode of seizure again today in the house, her son thought it lasted about 2 minutes and she again bit her tongue and had urinary incontinence and she was confused for some time. At that time, they decided to bring her to the hospital and in the hospital parking area again she had 1 more episode, her noticed it, and she was brought into the hospital. Currently, she is alert and awake and oriented. She says during this episode also she bit her tongue, behind of the tongue, and also had some urinary incontinence. She says she is taking her seizure medication regularly. She was supposed to get eeg coming . She is feeling some dizziness on and off and some blurred visions on and off. Had some headache. She had some itchiness in the ears. Had some mild postnasal drip, no cough, no sore throat, no fever, no chills. No difficulty swallowing. Appetite is okay. No chest pain or shortness of breath. Was feeling nauseous, but no vomiting. Last Thursday, she had some abdominal pain in the epigastric region, but that is resolved now, but she always has some right upper quadrant abdominal pain and chronic back pain. Denies any diarrhea or constipation. No blood in the stools or black stools. Normal bladder movements. No burning micturition, no hematuria. No swelling in the legs. No rash seen. Currently resting comfortably and hemodynamically stable. The ER physician talked to the neurologist operations program manager and was recommended to give Keppra 1 gram b.i.d. Admission Exam Per Admitting Provider PHYSICAL EXAMINATION: GENERAL: The patient is obese, not in acute distress. VITAL SIGNS: Temperature 36.8, pulse 93, respiratory rate 22, blood pressure 137/92, oxygen 95% on room air. HEENT: No pallor, no icterus. Pupils equal, round, reactive to light. NECK: No JVD, no neck masses, no carotid bruits. CARDIOVASCULAR: S1, S2 heard, regular rate and rhythm, no murmur, no gallop. RESPIRATORY SYSTEM: Normal AP diameter. No accessory muscle use. No wheezing, no crackles. ABDOMEN: Soft, bowel sounds present. There is mild right upper quadrant tenderness. Mild guarding, no rigidity, no distention. CENTRAL NERVOUS SYSTEM: Cranial nerves II-XII grossly intact, nonfocal. EXTREMITIES: No edema, no erythema. Principal Diagnosis recurrent breakthrough seizures cirrhosis with ascites and acute abdominal pain HCC Discharge Exam CONSTITUTIONAL: obese, vitals as above, generally well-appearing EYES: normal conjunctivae, no scleral icterus ENT: MMM NECK: trachea midline, no lymphadenopathy RESPIRATORY: clear to auscultation bilaterally, no crackles, rales or wheezes, normal respiratory effort CARDIOVASCULAR: regular rate and rhythm, S1 and 2 heard without murmurs, gallops or rubs, no JVD, no peripheral edema GASTROINTESTINAL: normal bowel sounds, soft, RUQ tenderness to palpation, not distended. MUSCULOSKELETAL: strength 5/5 throughout except for LUE which is 3/5, LLE 3/5 dorsiflexion . Head is normocephalic and atraumatic SKIN: warm and dry NEUROLOGIC: no facial palsy, no dysarthria. CN 2-12 grossly intact, no sen alton deficit, normal cognition, normal speech, no tremor PSYCHIATRIC: alert cooperative and oriented to person, place and time. Discharge Data Allergies Allergy/AdvReac Type Severity Reaction Status Date / Time naproxen Allergy Unknown BLEEDING Verified 03/22/19 16:17 Consultations 04/19/19 00:11 ED Decision to Admit Stat 04/19/19 08:00 Consult Neurology Routine Hospital Course (1) Seizure: (2) Hepatocellular carcinoma: (3) T2DM (type 2 diabetes mellitus): (4) Bipolar disorder: (5) Chronic pain: (6) DONNA (obstructive sleep apnea): (7) Liver cirrhosis secondary to MENDEZ: 48-year-old female with a history of seizures including recent hospitalizations in February and March 2019 with recurrent seizure episodes presented with breakthrough seizures. She is on Keppra 750 mg p.o. twice daily and gabapentin 300 mg p.o. 3 times daily and reports compliance. She denies any recent infectious symptoms. She was reporting multiple episodes in the last few days of breakthrough seizures. She was admitted to the telemetry service placed on Keppra 1000mg IV BID and remained hemodynamically stable, seizure-free and without events on telemetry throughout her admission. She has a history of MENDEZ cirrhosis with newly diagnosed hepatocellular carcinoma. She is under the care of [facility] in [place]. She recently reports increased swelling her abdomen with some intermittent right-sided abdominal pain for the past 2 days. She is on diuretics and compliant with those to assist with ascites. She is mentating clearly but reports only one BM every 1-2 days. Neurology was consulted and recommended transfer to tertiary care facility where she can undergo continuous EEG monitoring. She was transferred to [facility] in [place] in stable condition. Total Time Total Time Spent Total Time Spent (In Minutes): 60 Total Time Includes: Examination of the Patient, Discharge Planning, Medication Reconciliation, Communication With Other Providers and Other (orchestrate transfer) Discharge Plan Discharge Items Patient Disposition: Transfer Acute Care Hospital Reason For Visit: SEIZURE Discharge Diagnosis: recurrent breakthrough seizures cirrhosis with ascites and acute abdominal pain HCC Condition on Discharge: Fair Activity: As commented below Activity Comment: OOB with assistance Non-emergency contact: Primary Care Provider Call non-emergency contact if: you have any medication questions, your symptoms worsen, your pain is not controlled, your pain is worsening, your pain is unusual for you, your pain is concerning for you and you have a fever Follow-up/Referrals: Scott Weldon MD [Primary Care Provider] - Diet: Carb Consistent or DM2 and Low Sodium (2gm) Addtl Attending Provider Instructions: It is recommended that you follow-up with your primary care physician within one week of discharge from the receiving facility. You are being transferred to [facility] in order to pursue investigation with a continuous EEG monitoring system which will better help us understand about your recent seizure activity. It was a pleasure taking care of you! Please call if you have any questions or problems. You can reach a [facility] hospitalist on duty at [facility] 24 hours a day by calling [phone]. Take care of yourself. Sharri Wagner, DO [facility] Hospitalist Pending Studies at Discharge: No Stand-Alone Forms: My [facility] Skilled Items Patient informed of condition?: Yes DNR: No Discharge Level of Care: Other Communicable Disease: No Discharge Prognosis: Stable Lines: Peripheral IV Urinary Catheter: No Medications and DC Order Prescriptions: Continued furosemide [Lasix] 40 mg tablet 40 mg PO DAILY RF: 0 atorvastatin [Lipitor] 40 mg tablet 40 mg PO DAILY RF: 0 atenolol 100 mg Tablet 100 mg PO BID RF: 0 ondansetron HCl [Zofran] 4 mg Tablet 4 mg PO QID PRN (Reason: Nausea) RF: 0 potassium chloride 10 mEq Tablet Extended Release 10 meq PO BID RF: 0 alprazolam [Xanax] 0.5 mg Tablet 0.5 mg PO UD PRN (Reason: ANXIETY PRIOR TO MRI) RF: 0 magnesium oxide [MagOx] 400 mg (241.3 mg magnesium) tablet 400 mg PO DAILY RF: 0 metoclopramide HCl [Reglan] 5 mg Tablet 5 mg PO AC PRN (Reason: Nausea) RF: 0 trazodone 100 mg tablet 200 mg PO HS RF: 0 dicyclomine 20 mg tablet 20 mg PO BID PRN (Reason: PAIN/CRAMPING) RF: 0 meclizine 25 mg Tablet 25 mg PO TID PRN (Reason: DIZZYNESS) RF: 0 metformin [Glucophage] 1,000 mg tablet 1,000 mg PO BIDM RF: 0 losartan [Cozaar] 25 mg tablet 25 mg PO DAILY RF: 0 ibuprofen 200 mg Tablet 600 mg PO UD PRN (Reason: Pain) RF: 0 omeprazole 20 mg capsule,delayed release(DR/EC) 20 mg PO BID RF: 0 loratadine [Claritin] 10 mg Tablet 10 mg PO DAILY PRN (Reason: Allergy Symptoms) RF: 0 spironolactone [Aldactone] 50 mg tablet 50 mg PO DAILY RF: 0 Novolin R Regular U-100 Insuln 100 unit/mL solution 0 unit continuous subcutaneous infusion DIRECTED RF: 0 gabapentin 300 mg Capsule 300 mg PO TID RF: 0 levetiracetam [Keppra] 500 mg tablet 750 mg PO BID Qty: 60 RF: 3 quetiapine 300 mg tablet 600 mg PO HS RF: 0 tizanidine 4 mg tablet 4 mg PO Q8H PRN (Reason: Spasms) RF: 0 hydroxyzine HCl 25 mg tablet 50 mg PO Q6H PRN (Reason: Anxiety) RF: 0 oxycodone 5 mg tablet 5 mg PO Q6 PRN (Reason: Pain) RF: 0 Discharge Orders: Discharge Order (Routine); Ordered 04/19/19 Ordered By: Sharri Wagner Admission Data Admit Date/Time: 04/19/19 01:12 Attending Provider: Sharri Wagner Admit Provider: Daniel Bradford Primary Care Provider: Scott Weldon Other Providers: Daniel Bradford ; Yesenia Loaiza
--- NOTE | 2019-04-19 15:29 | Neurology Consultation ---
Date of Consultation April 19, 2019 Assessment & Plan (1) Seizure: 1. agree with transfer to [place] for further assessment 2. LTM - seizures need to be evaluated for either true seizure or pseudo seizure due to anxiety and stress of chronic illness 3. continue Keppra 1 g BID for now 4. continue gabepentin 300 mg TID 5. internal medicine has accepted for transfer due for management of chronic issues Supervising Physician Co-Signing Physician Notes I have seen and discussed above patient with Dr Yesenia Loaiza, neurology History of Present Illness Reason for Consultation: seizure Requesting Physician: Sharri Wagner DO Attending Physician: Sharri Wagner DO History of Present Illness Carmen is a 48 year old female with PMH insulin-dependent diabetes type 2, on insulin pump, MENDEZ cirrhosis, chronic pain, lumbago, obstructive sleep apnea, on CPAP, bipolar disorder, hypertension, hyperlipidemia, history of liver lesions, followed by [facility], She presents with several seizures. She presented with seizures in February and along with the gabepentin she was already taking she was started on keppra 500 mg BID, at the next admission she was increased to 750 mg BID. She presents on this admission with several seizure one unwitnessed and others witness with biting of tongue and incontinence. Her Keppra was increased to 1000 mg BID. She is also having increased ascites and abdominal pain. i Allergies Allergy/AdvReac Type Severity Reaction Status Date / Time naproxen Allergy Unknown BLEEDING Verified 03/22/19 16:17 Home Medications Home Medications Medication Instructions Recorded Confirmed Type alprazolam [Xanax] 0.5 mg PO UD PRN 10/02/18 04/18/19 History atenolol 100 mg PO BID 10/02/18 04/18/19 History atorvastatin [Lipitor] 40 mg PO DAILY 10/02/18 04/18/19 History dicyclomine 20 mg PO BID PRN 10/02/18 04/18/19 History furosemide [Lasix] 40 mg PO DAILY 10/02/18 04/18/19 History ibuprofen 600 mg PO UD PRN 10/02/18 04/18/19 History loratadine [Claritin] 10 mg PO DAILY PRN 10/02/18 04/18/19 History losartan [Cozaar] 25 mg PO DAILY 10/02/18 04/18/19 History magnesium oxide [MagOx] 400 mg PO DAILY 10/02/18 04/18/19 History meclizine 25 mg PO TID PRN 10/02/18 04/18/19 History metformin [Glucophage] 1,000 mg PO BIDM 10/02/18 04/18/19 History metoclopramide HCl [Reglan] 5 mg PO AC PRN 10/02/18 04/18/19 History omeprazole 20 mg PO BID 10/02/18 04/18/19 History ondansetron HCl [Zofran] 4 mg PO QID PRN 10/02/18 04/18/19 History potassium chloride 10 meq PO BID 10/02/18 04/18/19 History spironolactone [Aldactone] 50 mg PO DAILY 10/02/18 04/18/19 History trazodone 200 mg PO HS 10/02/18 04/18/19 History Novolin R Regular U-100 Insuln 0 unit CONTINUOUS SUBCUTANEOUS 02/13/19 04/18/19 History INFUSION DIRECTED gabapentin 300 mg PO TID 02/13/19 04/18/19 History levetiracetam [Keppra] 750 mg PO BID #60 tab 03/24/19 04/18/19 Rx hydroxyzine HCl 50 mg PO Q6H PRN 04/18/19 04/18/19 History oxycodone 5 mg PO Q6 PRN 04/18/19 04/18/19 History quetiapine 600 mg PO HS 04/18/19 04/18/19 History tizanidine 4 mg PO Q8H PRN 04/18/19 04/18/19 History Patient History Medical History Thrombocytopenia T2DM (type 2 diabetes mellitus) (Chronic) GERD (gastroesophageal reflux disease) (Chronic) Bipolar disorder (Chronic) Chronic pain (Chronic) HTN (hypertension) (Chronic) HLD (hyperlipidemia) (Chronic) Depression (Chronic) DONNA (obstructive sleep apnea) (Chronic) Back pain (Chronic) Liver cirrhosis secondary to MENDEZ (Acute) H/O TIA (transient ischemic attack) and stroke History of hysterectomy Hypertension Liver cancer Seizure Stroke Vertigo Surgical History History of tubal ligation Family History Other No significant family history Social History Preferred Language: Upper Sorbian Communication Ability: Effective Ranch Helper Required: No Beliefs That Will Affect Care: None Current Living Situation: Spouse Current Living Situation Comment: SON AND Feels Safe at Home: Yes Smoking Status: Never smoker Hx Alcohol Use: No Hx Substance Use: No Physical Exam Physical Exam: Gen: alert NAD lungs course breath sounds CV RRR abdomen distended with 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 5/5 bilaterally hip flex 5/5 Results & Data Vital Signs (Past 12 Hours) Vital Signs Temp Pulse Pulse Resp BP Pulse Ox 04/19/19 15:03 36.6 C 83 19 117/78 93 04/19/19 11:02 36.5 C 79 18 99/66 L 92 04/19/19 07:46 97/64 L 04/19/19 07:37 36.4 C L 85 16 92 04/19/19 03:35 95 H 16 92 Laboratory Results Abnormal lab results 04/18/19 04/18/19 04/19/19 Range/Units 20:57 20:57 02:12 RBC (4.2-5.4) M/uL Hgb 11.5 L (12.0-16.0) g/dL Hct 35.8 L (37-47) % RDW Coeff of Bailey 14.6 H (11.5-14.5) % Plt Count 114 L (130-400) K/uL Luna # (Auto) 0.63 H (0.11-0.59) K/uL Carbon Dioxide 33 H (21-32) mmol/L BUN (7-18) mg/dl Creatinine 1.26 H (0.6-1.2) mg/dl Glucose 124 H (70-99) mg/dl POC Glucose 147 H (70-99) Hemoglobin A1c (4.5-5.6) % Calcium (8.5-10.1) mg/dl Alkaline Phosphatase 125 H (45-117) U/L Albumin 3.3 L (3.4-5.0) gm/dl Globulin 4.3 H (2.5-4.0) gm/dl Albumin/Globulin Ratio 0.8 L (0.9-2) 04/19/19 04/19/19 04/19/19 Range/Units 06:46 06:46 06:46 RBC 4.02 L (4.2-5.4) M/uL Hgb 11.0 L (12.0-16.0) g/dL Hct 34.1 L (37-47) % RDW Coeff of Bailey (11.5-14.5) % Plt Count 109 L (130-400) K/uL Luna # (Auto) (0.11-0.59) K/uL Carbon Dioxide (21-32) mmol/L BUN 20 H (7-18) mg/dl Creatinine (0.6-1.2) mg/dl Glucose 114 H (70-99) mg/dl POC Glucose (70-99) Hemoglobin A1c 7.9 H (4.5-5.6) % Calcium 8.3 L (8.5-10.1) mg/dl Alkaline Phosphatase (45-117) U/L Albumin (3.4-5.0) gm/dl Globulin (2.5-4.0) gm/dl Albumin/Globulin Ratio (0.9-2) 04/19/19 04/19/19 Range/Units 07:16 11:16 RBC (4.2-5.4) M/uL Hgb (12.0-16.0) g/dL Hct (37-47) % RDW Coeff of Bailey (11.5-14.5) % Plt Count (130-400) K/uL Luna # (Auto) (0.11-0.59) K/uL Carbon Dioxide (21-32) mmol/L BUN (7-18) mg/dl Creatinine (0.6-1.2) mg/dl Glucose (70-99) mg/dl POC Glucose 119 H 187 H (70-99) Hemoglobin A1c (4.5-5.6) % Calcium (8.5-10.1) mg/dl Alkaline Phosphatase (45-117) U/L Albumin (3.4-5.0) gm/dl Globulin (2.5-4.0) gm/dl Albumin/Globulin Ratio (0.9-2) Diagnostic Findings no imaging
--- NOTE | 2019-04-19 20:51 | Progress Note ---
DATE: 04/19/2019 I have discussed the patient with Yesenia Wayne, who is familiar with the patient. Her impression was the patient was to be transferred that has not yet occurred due to patient waiting for a bed. The patient has a history of seizures. There is still a question as to whether or not the seizures were all electrical. She had 2 seizures on the day of admission one at home and one either en route to the Emergency Room or in the Emergency Room. She was given a gram of Keppra in the Emergency Room and her dose of Keppra was increased from 750 b.i.d. She is also on gabapentin for a variety of symptoms. Her medical history was reviewed with Yesenia. Hematology profile notable for a mildly low platelet count and mild anemia. PTT 20, PT 11. Labs on admission notable for CO2 of 33, creatinine of 1.26, glucose of 124, alkaline phosphatase 125, normal transaminases. Keppra level pending. IMPRESSION: This is a patient with seizures which have been incompletely controlled. There is a question as to whether or not they are all electrical. The plan is for transfer to [facility] for further inpatient EEG monitoring. In the interim, increase the Keppra to 1000 mg twice a day. The patient will need to follow up with Yesenia Wayne post-discharge.
[2019-04-19] MEDS ORDERED: TRAZODONE HCL 100 MG TAB PO SCH (21:00)
[2019-04-19] MEDS ORDERED: QUETIAPINE FUMARATE 300 MG TABLET PO SCH (21:00)
[2019-04-20] MEDS: OXYCODONE HCL IR 5 MG TAB (IMMEDIATE RELEASE) PO PRN (08:34)
--- NOTE | 2019-04-20 09:42 | Hospitalist Progress Note ---
Date of Service April 20, 2019 Assessment & Plan (1) Seizure: (2) Hepatocellular carcinoma: (3) T2DM (type 2 diabetes mellitus): (4) Bipolar disorder: (5) Chronic pain: (6) DONNA (obstructive sleep apnea): (7) Liver cirrhosis secondary to MENDEZ: 48-year-old female with a history of seizures including recent hospitalizations in February and March 2019 with recurrent seizure episodes presented with breakthrough seizures. She is on Keppra 750 mg p.o. twice daily and gabapentin 300 mg p.o. 3 times daily and reports compliance. She denies any recent infectious symptoms. She was reporting multiple episodes in the last few days of breakthrough seizures. She was admitted to the telemetry service placed on Keppra 1000mg IV BID and remained hemodynamically stable, seizure-free and without events on telemetry throughout her admission. She has a history of MENDEZ cirrhosis with newly diagnosed hepatocellular carcinoma. She is under the care of [facility] in [place]. She recently reports increased swelling her abdomen with some intermittent right-sided abdominal pain for the past 2 days. She is on diuretics and compliant with those to assist with ascites. She is mentating clearly but reports only one BM every 1-2 days. Neurology was consulted and recommended transfer to tertiary care facility where she can undergo continuous EEG monitoring. She will be transferred to [facility] in [place] when bed available ROS-No Headache, No Visual Changes, No Nausea, No Vomiting, No Fever, No Chills, No Neck Pain or Stiffness, No Chest Pain, No Palpitations, No SOB, No ZEPEDA, No Cough, No Sputum, No Wheezing, No Abdominal Pain, No Diarrhea, No Hematemesis, No Hemoptysis, No Unexpected Weight Loss, No Flank pain, No Melena, No Hematochezia, No Frequency, No Urgency, No Burning, No Hematuria, No Rashes, No Diaphoresis. Appetite is Normal Physical Exam Gen-AAO x 3, NAD, Afebrile Head-NCAT, EOMI, PERRLA, Anicteric Sclera, No Posterior Pharyngeal Erythema Neck-Supple, No JVD, No Thyromegaly, No Masses, No LAD, No Bruits Lungs-Clear to Auscultation Bilaterally, No Rales, No Rhonchi, No Wheezing, No Crepitus Chest-No S4, +S1, +S2, No S3, No Murmurs, No Rubs, No Gallops, No Ectopy Abdomen-Soft, Bowel Sounds Present, Non Tender, Non Distended, No Hepatomegaly, No Splenomegaly, No Palpable Masses, No Rebound, No Rigidity, No Guarding Musculoskeletal-Full Range of Motion Bilaterally, No CVAT Extremities-No Cyanosis, No Clubbing, No Edema Nuero-Cranial Nerves II-XII grossly intact, Motor WNL, DTRs WNL, Strength WNL, Non Focal Psych-Normal Mood. Awaiting transfer Results & Data Vital Signs (Past 12 Hours) Vital Signs Temp Pulse Resp BP BP Pulse Ox 04/20/19 08:40 36.7 C 78 18 116/77 125/82 92 04/20/19 07:30 36.7 C 78 18 116/77 92 04/20/19 03:41 36.6 C 76 76 H 111/74 90 04/19/19 23:08 36.9 C 84 19 111/74 94 Allergies naproxen Allergy (Unknown, Verified 03/22/19 16:17) BLEEDING Height/Weight/Isolation Height 5 ft 4 in Weight 97 kg Chemistry 04/18/19 04/19/19 20:57 06:46 Sodium 138 139 Potassium 3.8 4.2 Chloride 100 103 Carbon Dioxide 33 H 32 Anion Gap 5.0 4.0 BUN 16 20 H Creatinine 1.26 H 1.12 Glucose 124 H 114 H (1) T2DM (type 2 diabetes mellitus) Diabetes mellitus complication status: without complication 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
--- NOTE | 2019-04-20 14:07 | Electroencephalogram ---
EEG Procedure Note Date of Service April 20, 2019 Start / End Times Start Time: 921 End Time: 941 Referring Physician Yesenia Loaiza MD History possible seizures Home Medication List Home Medications Medication Instructions Recorded Confirmed Type alprazolam [Xanax] 0.5 mg PO UD PRN 10/02/18 04/18/19 History atenolol 100 mg PO BID 10/02/18 04/18/19 History atorvastatin [Lipitor] 40 mg PO DAILY 10/02/18 04/18/19 History dicyclomine 20 mg PO BID PRN 10/02/18 04/18/19 History furosemide [Lasix] 40 mg PO DAILY 10/02/18 04/18/19 History ibuprofen 600 mg PO UD PRN 10/02/18 04/18/19 History loratadine [Claritin] 10 mg PO DAILY PRN 10/02/18 04/18/19 History losartan [Cozaar] 25 mg PO DAILY 10/02/18 04/18/19 History magnesium oxide [MagOx] 400 mg PO DAILY 10/02/18 04/18/19 History meclizine 25 mg PO TID PRN 10/02/18 04/18/19 History metformin [Glucophage] 1,000 mg PO BIDM 10/02/18 04/18/19 History metoclopramide HCl [Reglan] 5 mg PO AC PRN 10/02/18 04/18/19 History omeprazole 20 mg PO BID 10/02/18 04/18/19 History ondansetron HCl [Zofran] 4 mg PO QID PRN 10/02/18 04/18/19 History potassium chloride 10 meq PO BID 10/02/18 04/18/19 History spironolactone [Aldactone] 50 mg PO DAILY 10/02/18 04/18/19 History trazodone 200 mg PO HS 10/02/18 04/18/19 History Novolin R Regular U-100 Insuln 0 unit CONTINUOUS SUBCUTANEOUS 02/13/19 04/18/19 History INFUSION DIRECTED gabapentin 300 mg PO TID 02/13/19 04/18/19 History levetiracetam [Keppra] 750 mg PO BID #60 tab 03/24/19 04/18/19 Rx hydroxyzine HCl 50 mg PO Q6H PRN 04/18/19 04/18/19 History oxycodone 5 mg PO Q6 PRN 04/18/19 04/18/19 History quetiapine 600 mg PO HS 04/18/19 04/18/19 History tizanidine 4 mg PO Q8H PRN 04/18/19 04/18/19 History Inpatient Medication List Discontinued Medications Atenolol (Tenormin) 100 mg PO BID MARCIA Stop: 05/19/19 08:59 Last Admin: 04/19/19 20:08 Dose: 100 mg Documented by: [id number] Admin: 04/19/19 09:44 Dose: Not Given Documented by: [id number] Atorvastatin Calcium (Lipitor) 40 mg PO DAILY MARCIA Stop: 05/19/19 08:59 Last Admin: 04/19/19 09:47 Dose: 40 mg Documented by: [id number] Cosigned by: [id number] Furosemide (Lasix) 40 mg PO DAILY MARCIA Stop: 05/19/19 08:59 Last Admin: 04/19/19 09:42 Dose: 40 mg Documented by: [id number] Cosigned by: [id number] Gabapentin (Neurontin) 300 mg PO TID MARCIA Stop: 05/19/19 08:59 Last Admin: 04/19/19 20:09 Dose: 300 mg Documented by: [id number] Admin: 04/19/19 14:47 Dose: 300 mg Documented by: [id number] Admin: 04/19/19 09:43 Dose: 300 mg Documented by: [id number] Cosigned by: [id number] Hydromorphone HCl (Dilaudid) 1 mg IV Q15M PRN PRN Reason: Pain Stop: 05/02/19 19:41 Last Admin: 04/19/19 01:34 Dose: 1 mg Documented by: [id number] Admin: 04/18/19 23:22 Dose: 1 mg Documented by: [id number] Admin: 04/18/19 22:08 Dose: 1 mg Documented by: [id number] Admin: 04/18/19 21:12 Dose: 1 mg Documented by: [id number] Hydromorphone HCl (Dilaudid) 0.5 mg IV NOW STA Stop: 04/19/19 01:59 Last Admin: 04/19/19 05:09 Dose: Not Given Documented by: [id number] Levetiracetam 1,000 mg/ (Dextrose) 110 mls @ 440 mls/hr IV NOW STA Stop: 04/18/19 19:56 Last Infusion: 04/18/19 22:07 Dose: 440 mls/hr Documented by: [id number] Admin: 04/18/19 21:12 Dose: 440 mls/hr Documented by: [id number] Sodium Chloride (Nss 1000ml) 1,000 mls @ 999 mls/hr IV .Q1H1M MARCIA Stop: 04/18/19 20:45 Last Infusion: 04/18/19 23:19 Dose: 0 mls/hr Documented by: [id number] Admin: 04/18/19 21:13 Dose: 999 mls/hr Documented by: [id number] Levetiracetam 1,000 mg/ (Dextrose) 110 mls @ 440 mls/hr IV BID [facility] Stop: 05/19/19 08:59 Last Infusion: 04/19/19 20:31 Dose: 0 mls/hr Documented by: [id number] Admin: 04/19/19 20:11 Dose: 440 mls/hr Documented by: [id number] Infusion: 04/19/19 10:05 Dose: 0 mls/hr Documented by: [id number] Admin: 04/19/19 09:48 Dose: 440 mls/hr Documented by: [id number] Cosigned by: [id number] Insulin Human Regular (Insulin Regular Pump) 1 ea N/A [facility]; Protocol Stop: 05/19/19 07:29 Last Admin: 04/19/19 20:31 Dose: 1 ea Documented by: [id number] Cosigned by: [id number] Admin: 04/19/19 18:06 Dose: 1 ea Documented by: [id number] Cosigned by: [id number] Admin: 04/19/19 12:52 Dose: 1 ea Documented by: [id number] Cosigned by: [id number] Admin: 04/19/19 09:41 Dose: 1 ea Documented by: [id number] Cosigned by: [id number] Losartan Potassium (Cozaar) 25 mg PO DAILY [facility] Stop: 05/19/19 08:59 Last Admin: 04/19/19 09:45 Dose: Not Given Documented by: [id number] Magnesium Oxide (Mag-Ox) 400 mg PO DAILY [facility] Stop: 05/19/19 08:59 Last Admin: 04/19/19 09:47 Dose: 400 mg Documented by: [id number] Cosigned by: [id number] Ondansetron HCl (Zofran) 4 mg IV NOW STA Stop: 04/18/19 19:43 Last Admin: 04/18/19 21:12 Dose: 4 mg Documented by: [id number] Oxycodone HCl (Roxicodone Immediate Rel) 5 mg PO Q6 PRN PRN Reason: Pain Stop: 05/03/19 04:31 Last Admin: 04/20/19 08:34 Dose: 5 mg Documented by: [id number] Admin: 04/19/19 14:57 Dose: 5 mg Documented by: [id number] Admin: 04/19/19 07:58 Dose: 5 mg Documented by: [id number] Oxycodone HCl (Roxicodone Immediate Rel) 10 mg PO ONE ONE Stop: 04/19/19 05:01 Last Admin: 04/19/19 05:16 Dose: Not Given Documented by: [id number] Oxycodone HCl (Roxicodone Immediate Rel) Confirm Administered Dose 10 mg .ROUTE .STK-MED ONE Stop: 04/19/19 03:21 Last Admin: 04/19/19 03:21 Dose: 10 mg Documented by: [id number] Pantoprazole Sodium (Protonix) 40 mg PO BID MARCIA Stop: 05/19/19 08:59 Last Admin: 04/19/19 20:09 Dose: 40 mg Documented by: [id number] Admin: 04/19/19 09:44 Dose: 40 mg Documented by: [id number] Cosigned by: [id number] Potassium Chloride (Klor-Con M10) 10 meq PO BID MARCIA Stop: 05/19/19 08:59 Last Admin: 04/19/19 20:10 Dose: 10 meq Documented by: [id number] Admin: 04/19/19 09:47 Dose: 10 meq Documented by: [id number] Cosigned by: [id number] Quetiapine Fumarate (Seroquel) 600 mg PO HS MARCIA Stop: 05/19/19 20:59 Last Admin: 04/19/19 20:11 Dose: 600 mg Documented by: [id number] Spironolactone (Aldactone) 50 mg PO DAILY MARCIA Stop: 05/19/19 08:59 Last Admin: 04/19/19 09:45 Dose: 50 mg Documented by: [id number] Cosigned by: [id number] Tizanidine HCl (Zanaflex) 4 mg PO Q8H PRN PRN Reason: Spasms Stop: 05/19/19 01:57 Last Admin: 04/19/19 20:42 Dose: 4 mg Documented by: [id number] Trazodone HCl (Desyrel) 200 mg PO HS MARCIA Stop: 05/19/19 20:59 Last Admin: 04/19/19 20:10 Dose: 200 mg Documented by: [id number] Description This is a 21 electrode EEG with a single channel dedicated to limited EKG. The electrodes were placed in accordance with the International 10-20 system This EEG was done is a bedside recording and is of good technical quality revealing a normal background alpha rhythm at about 10 hertz maximum frequency and maximum in posterior head regions, normal central theta activity pattern which is symmetrical at about 78 hertz and beta activity of low voltage in the bifrontal regions. Photic stimulation evokes a modest driving response At no time during waking tracing is or evidence for potentially epileptogenic activity Interpretation this is a normal EEG revealing no evidence for focal or generalized encephalopathy and no evidence for potentially epileptogenic activity during wakefulness Clinical Correlation this is a normal EEG during wakefulness without evidence for focal or generalized encephalopathy or potentially epileptogenic activity Venu Billings MD
--- NOTE | 2019-04-21 19:34 | Emergency Department Note ---
Entered by Eulalia Combs acting as a scribe for Venu Pak MD ED Provider Note CHIEF COMPLAINT: seizure HISTORY OF PRESENT ILLNESS: The patient is a 48 year old female who presents to the Emergency Room with complaints of seizure. The patient's medical records show that she was discharged from the hospital on 03/25/19 for break through seizures and a UTI. Since discharge, she states she experienced 3 additional seizures. 1 seizure occurred yesterday but the family is unsure how long it lasted as they found her during it. The patient states that she experienced numbness and tingling in her face after this particular seizure. She felt a second oncoming seizure today and stated to her that she needs to go to the ER. Her seizure occurred on the way to the ED. Her third seizure occurred about 1.5 hours ago inside her vehicle when she arrived at the ED. The states that it lasted about 2 minutes. The patient reports that she is currently experiencing nausea and abdominal pain. She takes Keppra daily and recently had her dose increased from 500mg twice daily to 750 mg twice daily. Her medication was increased during her recent hospital stay, not as an outpatient. The patient reports that she has not missed any Keppra doses. She states she had no additional seizures between time of discharge and yesterday. Additionally she reports increased chronic pain in her "liver" due to stress. She also reports that her abdominal pain radiates to her left shoulder. She currently takes hydrocodone for pain and reports taking 2 today. The patient also notes that she was diagnosed with liver cancer about 2 years ago but did not begin treatment since it is localized. She also explains that she has lesions on her liver and follows up with nephrology in [place] for this. Of note, she also follows up with a clinic at [facility] to receive lidocaine injections in her back for muscle spasms. She also reports that she has baseline weakness due to her history of CVA but explains that her weakness is exacerbated following a seizure. Pt denies any known allergies, headache, fevers, chills, diaphoresis, visual changes, neck pain, chest pain, breathing difficulties, vomiting, melena, hematochezia, urinary symptoms, lymphadenopathy, rash, or other complaints. REVIEW OF SYSTEMS: See HPI for pertinent positives and negatives. A total of ten systems were reviewed and were otherwise negative. PMHx/PSHx: seizure disorder, DM. cirrhosis secondary to MENDEZ, liver cancer, chronic pain, lesions on liver, lumbar deterioration, CVA SOCIAL HISTORY: Patient lives at home. PHYSICAL EXAM: GENERAL: Awake, alert, uncomfortable-appearing, in no distress HENT: Normocephalic, atraumatic. Oropharynx unremarkable. EYES: PERRL. Normal conjunctiva. Sclera non-icteric. NECK: Inspection normal. Non-tender. Supple. No nuchal rigidity. FROM. No masses. RESPIRATORY: Clear to auscultation. No wheezes. No rales. Normal respiratory effort. CARDIAC: Normal rate. Normal rhythm. No murmurs. No rubs. Extremities warm and well perfused. Pulses equal. No JVD. CHEST: port in left upper chest GI: Soft, non-distended. RUQ has right flank tenderness which pt notes is chron ic from liver issues. No rebound or guarding. No masses. RECTAL: Deferred. MUSCULOSKELETAL: Atraumatic. Chest examination reveals no tenderness. The back is symmetrical on inspection without obvious abnormality. There is no CVA tenderness to palpation. No joint edema. LOWER EXTREMITIES: Calves are equal size bilaterally and non-tender. No edema. No discoloration. NEURO: Normal sensorium. No sensory or motor deficits noted. Difficulty with KAM on left side, pt states this is chronic from hx CVA. SKIN: No rash or jaundice noted. EMERGENCY DEPARTMENT COURSE: 1933: The patient was evaluated in room A04A, and a complete history and physical examination were performed. 0011: Spoke with Dr. Loaiza, Neurologist for [facility] who recommends adm ission and to increase Keppra to 1,000 2x per day as well as an EEG in the morning 0025: Spoke with Dr. Bradford, [facility] Hospitalist who accepts the patient for admission. The patient verbally expressed understanding and agreement of the treatment plan. The patient will be evaluated for further treatment. MEDICAL DECISION MAKING: Prior records/ancillary studies reviewed. Patient placed in seizure precautions immediately upon arrival. Nursing notes reviewed and agree them. Additional history obtained from the patient's . The patient's history was concerning for a possible seizure. Differential diagnosis: Etiologies such as infection, hypoglycemia, electrolyte abnormalities, cardiac sources, intracerebral event, trauma, toxicologic, neurologic, as well as others were entertained. Physical examination: As above. No signs of trauma. ER treatment provided: IV Keppra IV Dilaudid IV Zofran On reassessment the patient felt better. Diagnostics interpretation by me: ECG: Normal sinus without acute ischemic change or dysrhythmia. The labs revealed a mild anemia on CBC. Chemistry panel unremarkable. Imaging studies: Deferred. The patient has a long history of seizures. Similar episodes occurred. She has had multiple imaging tests in the past. Consultation: A consultation was placed with the neurologist, Dr. Yesenia Loaiza. The case was discussed and diagnostics were reviewed. She recommended bringing the patient into the hospital for monitoring and EEG. She also recommended increasing the daily Keppra up to 1000 twice daily. Consultation was placed with the [facility] Hospitalist. Case was discussed. Diagnostics were reviewed. The patient was evaluated in ER for further management. IMPRESSION: seizure, right flank pain, history of liver cancer PLAN: Admitted. The scribe's documentation has been prepared under my direction and personally reviewed by me in its entirety. I confirm that the note above accurately reflects all work, treatment, procedures, and medical decision making performed by me. Impression & Plan Seizure, Right flank pain, History of liver cancer Past Med/Surg History Medical History Thrombocytopenia T2DM (type 2 diabetes mellitus) (Chronic) GERD (gastroesophageal reflux disease) (Chronic) Bipolar disorder (Chronic) Chronic pain (Chronic) HTN (hypertension) (Chronic) HLD (hyperlipidemia) (Chronic) Depression (Chronic) DONNA (obstructive sleep apnea) (Chronic) Back pain (Chronic) Liver cirrhosis secondary to MENDEZ (Acute) H/O TIA (transient ischemic attack) and stroke History of hysterectomy Hypertension Liver cancer Seizure Stroke Vertigo Surgical History History of tubal ligation Family History Other No significant family history Social History Preferred Language: [place] Communication Ability: Effective Supervisor Filtration Required: No Beliefs That Will Affect Care: None Current Living Situation: Spouse Current Living Situation Comment: SON AND Other Information That Helps Us Care for You: No Feels Safe at Home: Yes Safety Concerns: Feels Safe At This Time Smoking Status: Never smoker Hx Alcohol Use: No Hx Substance Use: No Results & Data Vital Signs Vital Signs - 24 hr 04/18/19 19:21 04/18/19 19:43 04/18/19 20:17 Temperature 36.8 C Temperature Source Oral Sepsis Recent Fever Within 48 Hours No Sepsis Action Taken by Nursing No Action Required Pulse Rate 94 H Pulse Rate [Right Finger] 86 Respiratory Rate 18 20 Respiratory Effort / Characteristics Non-Labored Spontaneous Non-Labored Spontaneous Respiratory Depth Normal Normal Respiratory Pattern Regular Regular Blood Pressure 118/83 Blood Pressure [Right Arm] 117/85 Blood Pressure Mean 94 Blood Pressure Mean [Right Arm] 95 Blood Pressure Position Sitting Blood Pressure Position [Right Arm] Lying Pulse Oximetry 93 94 94 Oxygen Delivery Method Room Air Room Air Room Air 04/18/19 22:11 Temperature Temperature Source Sepsis Recent Fever Within 48 Hours Sepsis Action Taken by Nursing Pulse Rate Pulse Rate [Right Finger] 93 H Respiratory Rate 22 Respiratory Effort / Characteristics Non-Labored Spontaneous Respiratory Depth Normal Respiratory Pattern Regular Blood Pressure Blood Pressure [Right Arm] 137/90 Blood Pressure Mean Blood Pressure Mean [Right Arm] 105 Blood Pressure Position Blood Pressure Position [Right Arm] Lying Pulse Oximetry 95 Oxygen Delivery Method Room Air Home Medications Current Medication List: was personally reviewed by me Laboratory Data Attestation: I reviewed the patient's lab results. Result diagrams: 04/19/19 06:46 04/19/19 06:46 Lab Results 04/18/19 04/18/19 Range/Units 20:57 20:57 WBC 6.75 (4.8-10.8) K/uL RBC 4.27 (4.2-5.4) M/uL Hgb 11.5 L (12.0-16.0) g/dL Hct 35.8 L (37-47) % MCV 83.8 (80-100) fL MCH 26.9 (25-34) pg MCHC 32.1 (32-36) g/dL RDW Std Deviation 44.4 (36.4-46.3) fL RDW Coeff of Bailey 14.6 H (11.5-14.5) % Plt Count 114 L (130-400) K/uL MPV 9.1 (7.4-10.4) fL Immature Gran % (Auto) 0.1 % Neut % (Auto) 57.7 % Lymph % (Auto) 29.5 % Dawson % (Auto) 9.3 % Eos % (Auto) 3.1 % Baso % (Auto) 0.3 % Immature Gran # (Auto) 0.01 (0.00-0.02) K/uL Neut # (Auto) 3.89 (1.4-6.5) K/uL Lymph # (Auto) 1.99 (1.2-3.4) K/uL Dawson # (Auto) 0.63 H (0.11-0.59) K/uL Eos # (Auto) 0.21 (0-0.5) K/uL Baso # (Auto) 0.02 (0-0.2) K/uL Sodium 138 (136-145) mmol/L Potassium 3.8 (3.5-5.1) mmol/L Chloride 100 (98-107) mmol/L Carbon Dioxide 33 H (21-32) mmol/L Anion Gap 5.0 (3-11) BUN 16 (7-18) mg/dl Creatinine 1.26 H (0.6-1.2) mg/dl Est Cr Clr Drug Dosing 63.1 ml/min Est GFR ( Amer) 59.2 Est GFR (Non-Af Amer) 51.1 BUN/Creatinine Ratio 13.0 (10-20) Glucose 124 H (70-99) mg/dl Calcium 8.8 (8.5-10.1) mg/dl Magnesium 1.8 (1.8-2.4) mg/dl Total Bilirubin 0.3 (0.2-1) mg/dl AST 26 (15-37) U/L ALT 17 (12-78) U/L Alkaline Phosphatase 125 H (45-117) U/L Total Creatine Kinase 71 (26-192) U/L Total Protein 7.6 (6.4-8.2) gm/dl Albumin 3.3 L (3.4-5.0) gm/dl Globulin 4.3 H (2.5-4.0) gm/dl Albumin/Globulin Ratio 0.8 L (0.9-2) Administered Medications Discontinued Medications Atenolol (Tenormin) 100 mg PO BID MARCIA Stop: 05/19/19 08:59 Last Admin: 04/19/19 20:08 Dose: 100 mg Documented by: [id number] Admin: 04/19/19 09:44 Dose: Not Given Documented by: [id number] Atorvastatin Calcium (Lipitor) 40 mg PO DAILY MARCIA Stop: 05/19/19 08:59 Last Admin: 04/19/19 09:47 Dose: 40 mg Documented by: [id number] Cosigned by: [id number] Furosemide (Lasix) 40 mg PO DAILY MARCIA Stop: 05/19/19 08:59 Last Admin: 04/19/19 09:42 Dose: 40 mg Documented by: [id number] Cosigned by: [id number] Gabapentin (Neurontin) 300 mg PO TID MARCIA Stop: 05/19/19 08:59 Last Admin: 04/19/19 20:09 Dose: 300 mg Documented by: [id number] Admin: 04/19/19 14:47 Dose: 300 mg Documented by: [id number] Admin: 04/19/19 09:43 Dose: 300 mg Documented by: [id number] Cosigned by: [id number] Hydromorphone HCl (Dilaudid) 1 mg IV Q15M PRN PRN Reason: Pain Stop: 05/02/19 19:41 Last Admin: 04/19/19 01:34 Dose: 1 mg Documented by: [id number] Admin: 04/18/19 23:22 Dose: 1 mg Documented by: [id number] Admin: 04/18/19 22:08 Dose: 1 mg Documented by: [id number] Admin: 04/18/19 21:12 Dose: 1 mg Documented by: [id number] Hydromorphone HCl (Dilaudid) 0.5 mg IV NOW STA Stop: 04/19/19 01:59 Last Admin: 04/19/19 05:09 Dose: Not Given Documented by: [id number] Levetiracetam 1,000 mg/ (Dextrose) 110 mls @ 440 mls/hr IV NOW STA Stop: 04/18/19 19:56 Last Infusion: 04/18/19 22:07 Dose: 440 mls/hr Documented by: [id number] Admin: 04/18/19 21:12 Dose: 440 mls/hr Documented by: [id number] Sodium Chloride (Nss 1000ml) 1,000 mls @ 999 mls/hr IV .Q1H1M MARCIA Stop: 04/18/19 20:45 Last Infusion: 04/18/19 23:19 Dose: 0 mls/hr Documented by: [id number] Admin: 04/18/19 21:13 Dose: 999 mls/hr Documented by: [id number] Levetiracetam 1,000 mg/ (Dextrose) 110 mls @ 440 mls/hr IV BID MARCIA Stop: 05/19/19 08:59 Last Infusion: 04/19/19 20:31 Dose: 0 mls/hr Documented by: [id number] Admin: 04/19/19 20:11 Dose: 440 mls/hr Documented by: [id number] Infusion: 04/19/19 10:05 Dose: 0 mls/hr Documented by: [id number] Admin: 04/19/19 09:48 Dose: 440 mls/hr Documented by: [id number] Cosigned by: [id number] Insulin Human Regular (Insulin Regular Pump) 1 ea N/A ACHS [facility]; Protocol Stop: 05/19/19 07:29 Last Admin: 04/19/19 20:31 Dose: 1 ea Documented by: [id number] Cosigned by: [id number] Admin: 04/19/19 18:06 Dose: 1 ea Documented by: [id number] Cosigned by: [id number] Admin: 04/19/19 12:52 Dose: 1 ea Documented by: [id number] Cosigned by: [id number] Admin: 04/19/19 09:41 Dose: 1 ea Documented by: [id number] Cosigned by: [id number] Losartan Potassium (Cozaar) 25 mg PO DAILY [facility] Stop: 05/19/19 08:59 Last Admin: 04/19/19 09:45 Dose: Not Given Documented by: [id number] Magnesium Oxide (Mag-Ox) 400 mg PO DAILY [facility] Stop: 05/19/19 08:59 Last Admin: 04/19/19 09:47 Dose: 400 mg Documented by: [id number] Cosigned by: [id number] Ondansetron HCl (Zofran) 4 mg IV NOW STA Stop: 04/18/19 19:43 Last Admin: 04/18/19 21:12 Dose: 4 mg Documented by: [id number] Oxycodone HCl (Roxicodone Immediate Rel) 5 mg PO Q6 PRN PRN Reason: Pain Stop: 05/03/19 04:31 Last Admin: 04/20/19 08:34 Dose: 5 mg Documented by: [id number] Admin: 04/19/19 14:57 Dose: 5 mg Documented by: [id number] Admin: 04/19/19 07:58 Dose: 5 mg Documented by: [id number] Oxycodone HCl (Roxicodone Immediate Rel) 10 mg PO ONE ONE Stop: 04/19/19 05:01 Last Admin: 04/19/19 05:16 Dose: Not Given Documented by: [id number] Oxycodone HCl (Roxicodone Immediate Rel) Confirm Administered Dose 10 mg .ROUTE .STK-MED ONE Stop: 04/19/19 03:21 Last Admin: 04/19/19 03:21 Dose: 10 mg Documented by: [id number] Pantoprazole Sodium (Protonix) 40 mg PO BID [facility] Stop: 05/19/19 08:59 Last Admin: 04/19/19 20:09 Dose: 40 mg Documented by: [id number] Admin: 04/19/19 09:44 Dose: 40 mg Documented by: [id number] Cosigned by: [id number] Potassium Chloride (Klor-Con M10) 10 meq PO BID [facility] Stop: 05/19/19 08:59 Last Admin: 04/19/19 20:10 Dose: 10 meq Documented by: [id number] Admin: 04/19/19 09:47 Dose: 10 meq Documented by: [id number] Cosigned by: [id number] Quetiapine Fumarate (Seroquel) 600 mg PO [facility] Stop: 05/19/19 20:59 Last Admin: 04/19/19 20:11 Dose: 600 mg Documented by: [id number] Spironolactone (Aldactone) 50 mg PO DAILY [facility] Stop: 05/19/19 08:59 Last Admin: 04/19/19 09:45 Dose: 50 mg Documented by: [id number] Cosigned by: [id number] Tizanidine HCl (Zanaflex) 4 mg PO Q8H PRN PRN Reason: Spasms Stop: 05/19/19 01:57 Last Admin: 04/19/19 20:42 Dose: 4 mg Documented by: [id number] Trazodone HCl (Desyrel) 200 mg PO HS [facility] Stop: 05/19/19 20:59 Last Admin: 04/19/19 20:10 Dose: 200 mg Documented by: [id number] ECG Data Attestation: I personally reviewed and interpreted this ECG as follows: Indication: + other (seizure) Rate (beats per minute): 90 Rhythm: normal sinus ECG Intervals/blocks: + Normal QRS and + Prolonged QT ECG [place]: + Normal ECG ST segments: no ST depression and no ST elevation ECG Findings: + Other (Nonspecific ST change) Blood Pressure Blood Pressure Findings: Normal blood pressure Blood Pressure Disposition: did not require urgent referral Discharge Plan Visit Data *Final* Discharge Date/Time: 04/19/19 01:49 Chief Complaint: Seizure Stated Complaint: SEIZURE ED Provider: Venu Pak Discharge Problem: Seizure, Right flank pain, History of liver cancer Patient Disposition: Admitted As Inpatient Condition: Fair Discharge Instructions Interventions: ED Discharge Assessment Last Done: 04/19/19 01:49 The scribe's documentation has been prepared under my direction and personally reviewed by me in its entirety. I confirm that the note above accurately reflects all work, treatment, procedures, and medical decision making performed by me.
== END 2019-04-20 08:40 | disposition short-term general hospital (02) | DRG 101 ==
LOC: ED 19:17 → 2S 04-19 01:12 → SUATTDRO 04-19 01:12 → 2S 04-19 01:49

== ENCOUNTER 2020-08-30 20:54 | Inpatient (IN) ==
[2020-08-30] MEDS ORDERED: SODIUM CHLORIDE 0.9% 500 ML IV ONE (21:48)
[2020-08-30] MEDS ORDERED: guaiFENesin 600 MG TABCR PO STA (21:48)
[2020-08-30] MEDS ORDERED: ALBUTEROL HFA 8 GM INHALER INH ONE (21:52)
[2020-08-30] MEDS ORDERED: dexAMETHasone**PF** 10 MG/ML VIAL IV ONE (21:52)
[2020-08-30 22:28] LABS: INR 1.1 (0.9-1.1); Prothrombin Time 11.5 Seconds (9.0-12.0)
--- NOTE | 2020-08-30 22:48 | Emergency Department Note ---
Impression & Plan Pneumonia due to COVID-19 virus, Hypoxia, Hypophosphatemia ED Provider Note NAME: JUDY CLAYTON AGE: 50 SEX: F ARRIVES VIA: Walk-In INFORMANT: Patient, ED PROVIDER(S): Yan Sparks MD CHIEF COMPLAINT: cough, body aches, Covid-19 exposures. PLAN: Disposition: Admit MEDICAL DECISION MAKING: The patient is a pleasant 50-year-old woman with a past medical history of hepatocellular carcinoma, Pearce cirrhosis, type 2 diabetes, GERD, hypertension, hyperlipidemia, bipolar disorder, seizure disorder who presents to the emergency department with worsening body aches, cough, congestion, shortness of breath, feverishness which has progressively worsened since 08/17 in setting of being exposed to her son who tested positive for COVID-19 as did his girlfriend and since then both the patient and her developed symptoms. She reports chest tightness but denies any chest pain per se. The patient reports getting tested early on when her symptoms and tested negative however they were aware that a negative test given her high risk exposure was likely a false negative. She reports they were supposed to get a repeat test tomorrow but because of her worsening symptoms presents to emergency department tonight. On arrival the patient is fatigued appearing, mildly dyspneic but no acute distress, afebrile with O2 saturation 91% on room air and vital signs otherwise stable. The patient appears clinically dry. She has a scant intermittent wheeze. Abdomen is benign. EKG without overt acute ischemia. Chest x-ray does demonstrate patchy infiltrates of lower lung hamm which is consistent with suspected COVID-19 infection/pneumonia. WBC, H/H within normal limits. Platelets 76K proximal to prior range of values in setting of cirrhosis. There is mild lymphopenia 0.74, consistent with suspected COVID-19. Glucose 200 however chemistry without metabolic acidosis. Phosphorus 1.8 with repletion initiated. LFTs without significant abnormality. Troponin negative/undetectable. BNP within normal limits. Lipase not elevated. Patient's COVID-19 PCR was positive. Influenza and RSV PCR negative. Upon reevaluation patient did report some improvement with initial IV fluid hydration, dexamethasone, guaifenesin and albuterol MDI. However given the patient's hypoxia down to 88% on room air at the lowest she was agreeable with recommendation for admission for further management. Case was discussed with Dr. Latham [facility], who will evaluate the patient for admission. Triage Nursing notes reviewed and agree them. Prior medical records reviewed Vital Signs: reviewed and remarkable for hypoxia. Differential diagnosis: Reactive airway disease, pneumonia, pneumothorax, COPD, CHF, infections, cardiac ischemia, pulmonary embolism, musculoskeletal, gastrointestinal, as well as other pathologies. ER treatment provided: See below. Diagnostics interpreted by me: ECG: Normal sinus rhythm, 93 bpm, no ectopy, nonspecific T wave abnormality, no overt ST elevation or depression, QTC 437, QRS 78. Cardiac Monitoring: An order for continuous cardiac monitoring was placed and demonstrated Normal sinus rhythm, 93 bpm, no ectopy. Laboratory studies: See below Imaging studies: CXR: Patchy infiltrates of lower lung hamm bilaterally per my preliminary review. Consultation(s): Case was discussed with Dr. Latham, [facility], who will evaluate the patient for admission. HPI: The patient is a pleasant 50-year-old woman with a past medical history of hepatocellular carcinoma, Pearce cirrhosis, type 2 diabetes, GERD, hypertension, hyperlipidemia, bipolar disorder, seizure disorder who presents to the emergency department with worsening body aches, cough, congestion, shortness of breath, feverishness which has progressively worsened since 08/17 in setting of being exposed to her son who tested positive for COVID-19 as did his girlfriend and since then both the patient and her developed symptoms. She reports chest tightness but denies any chest pain per se. The patient reports getting tested early on when her symptoms and tested negative however they were aware that a negative test given her high risk exposure was likely a false negative. She reports they were supposed to get a repeat test tomorrow but because of her worsening symptoms presents to emergency department tonight. ROS: See above HPI for pertinent positives & negatives. A total of 10 systems reviewed and were otherwise negative. PAST MEDICAL HISTORY:See Below PAST SURGICAL HISTORY:See Below FAMILY HISTORY:See Below SOCIAL HISTORY:See Below HOME MEDICATIONS:See Below ALLERGIES:See Below VITALS:See Below PHYSICAL EXAMINATION: GENERAL: Awake, alert, fatigued-appearing, in no distress HENT: Normocephalic, atraumatic. Oropharynx with dry mucous membranes and otherwise unremarkable. EYES: Normal conjunctiva. Sclera non-icteric. NECK: Supple. No nuchal rigidity. FROM. No JVD. RESPIRATORY: Scant intermittent wheeze otherwise clear. Mild dyspnea without increased work of breathing. CARDIAC: Regular rate, normal rhythm. Extremities warm and well perfused. Pulses equal. ABDOMEN: Soft, non-distended. No tenderness to palpation. No rebound or guarding. No masses. RECTAL: Deferred. MUSCULOSKELETAL: Chest examination reveals no tenderness. The back is symmetrical on inspection without obvious abnormality. There is no CVA tenderness to palpation. No joint edema. LOWER EXTREMITIES: Calves are equal size bilaterally and non-tender. No edema. No discoloration. NEURO: Normal sensorium. No sensory or motor deficits noted. SKIN: No rash or jaundice noted. 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 DONNA (obstructive sleep apnea) Seizure Stroke T2DM (type 2 diabetes mellitus) Thrombocytopenia Vertigo Surgical History History of hysterectomy History of tubal ligation Family History Other No significant family history Social History Smoking Status: Never smoker Second Hand Exposure: No; Do You Dip or Chew Tobacco: No; Tobacco Cessation Education Requested by Patient: No Hx Alcohol Use: No Hx Substance Use: No Preferred Language: Maltese Communication Ability: Effective Medical Practitioners Required: No Beliefs That Will Affect Care: None Current Living Situation: Spouse and Family Current Living Situation Comment: and a son Other Information That Helps Us Care for You: No Feels Safe at Home: Yes Safety Concerns: Feels Safe At This Time Assistive Devices: Cane, CPAP and Glasses Allergies Allergies Allergy/AdvReac Type Severity Reaction Status Date / Time naproxen Allergy Unknown BLEEDING Verified 08/31/20 00:11 Home Meds Home Medications Medication Instructions Recorded Confirmed atenolol 100 mg PO BID 10/02/18 08/31/20 atorvastatin [Lipitor] 40 mg PO QAM 10/02/18 08/31/20 dicyclomine 20 mg PO BID PRN 10/02/18 08/31/20 furosemide [Lasix] 40 mg PO QAM 10/02/18 08/31/20 loratadine [Claritin] 10 mg PO DAILY PRN 10/02/18 08/31/20 losartan [Cozaar] 25 mg PO QAM 10/02/18 08/31/20 magnesium oxide [MagOx] 400 mg PO QAM 10/02/18 08/31/20 meclizine 25 mg PO TID PRN 10/02/18 08/31/20 metformin [Glucophage] 1,000 mg PO BIDM 10/02/18 08/31/20 metoclopramide HCl [Reglan] 5 mg PO AC PRN 10/02/18 08/31/20 omeprazole 20 mg PO BID 10/02/18 08/31/20 potassium chloride 10 meq PO BID 10/02/18 08/31/20 spironolactone [Aldactone] 50 mg PO QAM 10/02/18 08/31/20 trazodone 200 mg PO HS 10/02/18 08/31/20 Novolin R Regular U-100 Insuln 0 unit CONTINUOUS SUBCUTANEOUS 02/13/19 08/31/20 INFUSION DIRECTED hydroxyzine HCl 50 mg PO Q6H PRN 04/18/19 08/31/20 baclofen 10 mg PO TID 03/07/20 08/31/20 duloxetine 60 mg PO QAM 03/07/20 08/31/20 eszopiclone 1 mg PO HS 03/07/20 08/31/20 pregabalin 75 mg PO TID 03/07/20 08/31/20 hydromorphone 4 mg PO BID PRN 08/31/20 08/31/20 ondansetron HCl 8 mg PO Q8 PRN 08/31/20 08/31/20 Results & Data (ED) Vital Signs Vital Signs - 24 hr 08/30/20 21:05 08/30/20 22:13 08/30/20 22:33 Temperature 37.5 C Temperature Source Temporal Artery Scan Pulse Rate 94 H Pulse Rate [Right Finger] 92 H Respiratory Rate 20 20 Respiratory Effort / Characteristics Non-Labored Spontaneous Respiratory Depth Normal Normal Blood Pressure 134/84 Blood Pressure [Right Arm] 132/90 Blood Pressure Mean 100 Blood Pressure Mean [Right Arm] 104 Blood Pressure Position Sitting Blood Pressure Position [Right Arm] Lying Pulse Oximetry 93 92 88 L Oxygen Delivery Method Room Air Room Air Room Air Oxygen Flow Rate Sepsis Recent Fever Within 48 Hours Yes Sepsis New/Unexplained Change in Mental Status No Sepsis Action Taken by Nursing No Action Required 08/31/20 00:00 Temperature Temperature Source Pulse Rate Pulse Rate [Right Finger] 90 Respiratory Rate 18 Respiratory Effort / Characteristics Respiratory Depth Blood Pressure Blood Pressure [Right Arm] 131/91 Blood Pressure Mean Blood Pressure Mean [Right Arm] 104 Blood Pressure Position Blood Pressure Position [Right Arm] Lying Pulse Oximetry 95 Oxygen Delivery Method Nasal Cannula Oxygen Flow Rate 2 Sepsis Recent Fever Within 48 Hours Sepsis New/Unexplained Change in Mental Status Sepsis Action Taken by Nursing Laboratory Data Attestation: I reviewed the patient's lab results. Result diagrams: 08/30/20 Unknown 08/30/20 22:10 Lab Results 08/30/20 08/30/20 08/30/20 Range/Units 22:06 22:06 22:10 WBC (4.8-10.8) K/uL RBC (4.2-5.4) M/uL Hgb (12.0-16.0) g/dL Hct (37-47) % MCV (80-100) fL MCH (25-34) pg MCHC (32-36) g/dL RDW Std Deviation (36.4-46.3) fL RDW Coeff of Bailey (11.5-14.5) % Plt Count (130-400) K/uL MPV (7.4-10.4) fL Immature Gran % (Auto) % Neut % (Auto) % Lymph % (Auto) % Wallace % (Auto) % Eos % (Auto) % Baso % (Auto) % Neut # (Auto) (1.4-6.5) K/uL Lymph # (Auto) (1.2-3.4) K/uL Wallace # (Auto) (0.11-0.59) K/uL Eos # (Auto) (0-0.5) K/uL Baso # (Auto) (0-0.2) K/uL Immature Gran # (Auto) (0.00-0.02) K/uL Platelet Estimate (Normal) PT (9.0-12.0) Seconds INR (0.9-1.1) Sodium 139 (136-145) mmol/L Potassium 4.5 (3.5-5.1) mmol/L Chloride 100 (98-107) mmol/L Carbon Dioxide 32 (21-32) mmol/L Anion Gap 8.0 (3-11) BUN 12 (7-18) mg/dl Creatinine 1.14 (0.6-1.2) mg/dl Est Cr Clr Drug Dosing Not Reportable Est GFR ( Amer) 65.9 Est GFR (Non-Af Amer) 56.8 BUN/Creatinine Ratio 10.2 (10-20) Glucose 200 H (70-99) mg/dl Calcium 8.4 L (8.5-10.1) mg/dl Phosphorus 1.8 L (2.5-4.9) mg/dl Magnesium 1.9 (1.8-2.4) mg/dl Total Bilirubin 0.8 (0.2-1) mg/dl Direct Bilirubin 0.2 (0-0.2) mg/dl AST 68 H (15-37) U/L ALT 25 (12-78) U/L Alkaline Phosphatase 168 H (45-117) U/L Total Creatine Kinase 58 (26-192) U/L Troponin I < 0.015 (0-0.045) ng/ml NT-Pro-B Natriuret Pep 286 (0-450) pg/ml Total Protein 7.3 (6.4-8.2) gm/dl Albumin 3.0 L (3.4-5.0) gm/dl Globulin 4.3 H (2.5-4.0) gm/dl Albumin/Globulin Ratio 0.7 L (0.9-2) Lipase 143 (73-393) U/L COVID-19 Eval Order CovFluRsv at [facility] SARS-CoV-2 (PCR) POSITIVE A* (Negative) Influenza Type A (PCR) Negative (Neg) Influenza Type B (PCR) Negative (Neg) RSV (RT-PCR) Negative (Neg) 08/30/20 08/30/20 Range/Units Unknown Unknown WBC 5.30 (4.8-10.8) K/uL RBC 4.62 (4.2-5.4) M/uL Hgb 13.1 (12.0-16.0) g/dL Hct 39.2 (37-47) % MCV 84.8 (80-100) fL MCH 28.4 (25-34) pg MCHC 33.4 (32-36) g/dL RDW Std Deviation 45.6 (36.4-46.3) fL RDW Coeff of Bailey 14.6 H (11.5-14.5) % Plt Count 76 L (130-400) K/uL MPV 9.5 (7.4-10.4) fL Immature Gran % (Auto) 0.4 % Neut % (Auto) 73.5 % Lymph % (Auto) 14.0 % Wallace % (Auto) 11.5 % Eos % (Auto) 0.4 % Baso % (Auto) 0.2 % Neut # (Auto) 3.90 (1.4-6.5) K/uL Lymph # (Auto) 0.74 L (1.2-3.4) K/uL Wallace # (Auto) 0.61 H (0.11-0.59) K/uL Eos # (Auto) 0.02 (0-0.5) K/uL Baso # (Auto) 0.01 (0-0.2) K/uL Immature Gran # (Auto) 0.02 (0.00-0.02) K/uL Platelet Estimate Decreased L (Normal) PT 11.5 (9.0-12.0) Seconds INR 1.1 (0.9-1.1) Sodium (136-145) mmol/L Potassium (3.5-5.1) mmol/L Chloride (98-107) mmol/L Carbon Dioxide (21-32) mmol/L Anion Gap (3-11) BUN (7-18) mg/dl Creatinine (0.6-1.2) mg/dl Est Cr Clr Drug Dosing Est GFR ( Amer) Est GFR (Non-Af Amer) BUN/Creatinine Ratio (10-20) Glucose (70-99) mg/dl Calcium (8.5-10.1) mg/dl Phosphorus (2.5-4.9) mg/dl Magnesium (1.8-2.4) mg/dl Total Bilirubin (0.2-1) mg/dl Direct Bilirubin (0-0.2) mg/dl AST (15-37) U/L ALT (12-78) U/L Alkaline Phosphatase (45-117) U/L Total Creatine Kinase (26-192) U/L Troponin I (0-0.045) ng/ml NT-Pro-B Natriuret Pep (0-450) pg/ml Total Protein (6.4-8.2) gm/dl Albumin (3.4-5.0) gm/dl Globulin (2.5-4.0) gm/dl Albumin/Globulin Ratio (0.9-2) Lipase (73-393) U/L COVID-19 Eval Order SARS-CoV-2 (PCR) (Negative) Influenza Type A (PCR) (Neg) Influenza Type B (PCR) (Neg) RSV (RT-PCR) (Neg) Administered Medications Remdesivir 200 mg/ Sodium (Chloride) 250 mls @ 125 mls/hr IV ONE STA; Protocol Stop: 08/31/20 04:09 Last Admin: 08/31/20 03:16 Dose: 125 mls/hr Documented by: [id number] Ceftriaxone Sodium 2,000 mg/ (Dextrose) 70 mls @ 100 mls/hr IV Q24H [facility]; Protocol Stop: 09/07/20 02:29 Last Admin: 08/31/20 03:13 Dose: 100 mls/hr Documented by: [id number] Discontinued Medications Albuterol (Albuterol Hfa 8 Gm Inhaler) 2 puffs INH NOW ONE Stop: 08/30/20 21:53 Last Admin: 08/30/20 22:07 Dose: 2 puffs Documented by: [id number] Baclofen (Baclofen 10 Mg Tab) 10 mg PO NOW STA Stop: 08/31/20 00:01 Last Admin: 08/31/20 00:52 Dose: 10 mg Documented by: [id number] Dexamethasone Sodium Phosphate (DexamethasonePf 10 Mg/Ml Vial) 10 mg IV NOW ONE Stop: 08/30/20 21:53 Last Admin: 08/30/20 22:07 Dose: 10 mg Documented by: [id number] Doxycycline Hyclate (Doxycycline Hyclate 100 Mg Cap) Confirm Administered Dose 100 mg PO .STK-MED ONE Stop: 08/31/20 01:25 Last Admin: 08/31/20 01:49 Dose: Not Given Documented by: [id number] Guaifenesin (Guaifenesin 600 Mg Tabcr) 600 mg PO NOW STA Stop: 08/30/20 21:49 Last Admin: 08/30/20 22:07 Dose: 600 mg Documented by: [id number] Hydromorphone HCl (Hydromorphone Hcl 2 Mg Tab) 4 mg PO NOW STA Stop: 08/31/20 00:01 Last Admin: 08/31/20 00:52 Dose: 4 mg Documented by: [id number] Sodium Chloride (Nss) 500 mls @ 999 mls/hr IV .Q31M ONE Stop: 08/30/20 22:18 Last Infusion: 08/30/20 23:45 Dose: 0 mls/hr Documented by: [id number] Admin: 08/30/20 22:07 Dose: 999 mls/hr Documented by: [id number] Sodium Chloride (Nss) 500 mls @ 125 mls/hr IV .Q4H MARCIA Stop: 09/29/20 23:44 Last Admin: 08/31/20 01:49 Dose: 125 mls/hr Documented by: [id number] Potassium Phosphate 6 mmol/ (Sodium Chloride) 102 mls @ 100 mls/hr IV ONE STA Stop: 08/31/20 01:08 Last Admin: 08/31/20 00:52 Dose: 100 mls/hr Documented by: [id number] Promethazine HCl (Phenergan) 12.5 mg in 50.5 mls @ 202 mls/hr IV NOW STA Stop: 08/31/20 00:55 Last Admin: 08/31/20 01:20 Dose: 202 mls/hr Documented by: [id number] Doxycycline Hyclate 100 mg/ (Dextrose) 110 mls @ 50 mls/hr IV NOW STA Stop: 08/31/20 03:00 Last Admin: 08/31/20 01:20 Dose: 50 mls/hr Documented by: [id number] Potassium Phosphate (Pot Phosphate Monobasic W/ Sod Tab) 2 tab PO NOW STA Stop: 08/30/20 23:56 Last Admin: 08/31/20 00:52 Dose: 2 tab Documented by: [id number] Discharge Plan Visit Data Chief Complaint: Illness Stated Complaint: COVID +, SOB ED Provider: Yan Sparks Discharge Problem: Pneumonia due to COVID-19 virus, Hypoxia, Hypophosphatemia Patient Disposition: Admitted As Inpatient Discharge Instructions Interventions: ED Discharge Assessment Last Done: 08/31/20 01:18
[2020-08-30 22:50] LABS: Alanine Aminotransferase 25 U/L (12-78); Albumin Globulin Ratio 0.7 (0.9-2); Alkaline Phosphatase 168 U/L (45-117); BUN Creatinine Ratio 10.2 (10-20); Bilirubin,Total 0.8 mg/dl (0.2-1); Blood Urea Nitrogen 12 mg/dl (7-18); Calcium 8.4 mg/dl (8.5-10.1); Carbon Dioxide 32 mmol/L (21-32); Chloride 100 mmol/L (98-107); Est GFR (African American) 65.9; Est GFR (Non-African American) 56.8; Globulin 4.3 gm/dl (2.5-4.0); Glucose 200 mg/dl (70-99); Lipase 143 U/L (73-393); NT Pro B Type Natriuretic Pept 286 pg/ml (0-450); Phosphorus 1.8 mg/dl (2.5-4.9); Potassium 4.5 mmol/L (3.5-5.1); Sodium 139 mmol/L (136-145); Total Protein 7.3 gm/dl (6.4-8.2); Troponin I < 0.015 ng/ml (0-0.045)
[2020-08-30 22:54] LABS: Hematocrit (blood only) 39.2 % (37-47); Hemoglobin 13.1 g/dL (12.0-16.0); Mean Corpuscular Hemoglobin 28.4 pg (25-34); Mean Corpuscular Hgb Conc 33.4 g/dL (32-36); Mean Corpuscular Volume 84.8 fL (80-100); Mean Platelet Volume 9.5 fL (7.4-10.4); Platelet Count 76 K/uL (130-400); RDW Coefficient of Variation 14.6 % (11.5-14.5); RDW Standard Deviation 45.6 fL (36.4-46.3); Red Blood Count 4.62 M/uL (4.2-5.4)
[2020-08-30 22:55] LABS: Basophils # (auto) 0.01 K/uL (0-0.2); Basophils % (auto) 0.2 %; Eosinophils # (auto) 0.02 K/uL (0-0.5); Eosinophils % (auto) 0.4 %; Immature Granulocytes # (auto) 0.02 K/uL (0.00-0.02); Immature Granulocytes % (auto) 0.4 %; Lymphocytes # (auto) 0.74 K/uL (1.2-3.4); Monocytes # (auto) 0.61 K/uL (0.11-0.59); Monocytes % (auto) 11.5 %; Neutrophils % (auto) 73.5 %; Platelet Estimate Decreased (Normal)
[2020-08-30 22:55] LABS: Aspartate Aminotransferase 68 U/L (15-37); Bilirubin Direct 0.2 mg/dl (0-0.2); Creatine Kinase 58 U/L (26-192); Magnesium 1.9 mg/dl (1.8-2.4)
[2020-08-30 23:31] LABS: Influenza A virus by PCR Negative (Neg); Influenza B virus by PCR Negative (Neg); RSV by PCR Negative (Neg)
[2020-08-30 23:33] LABS: SARS CoV2 RNA(COVID-19) InHosp POSITIVE (Negative)
[2020-08-30] MEDS ORDERED: SODIUM CHLORIDE 0.9% 500 ML IV SCH (23:45)
[2020-08-30] MEDS ORDERED: POT PHOSPHATE MONOBASIC W/ SOD TAB PO STA (23:55)
[2020-08-30] MEDS ORDERED: POTASSIUM PHOS 3 MMOL/1 ML INFUSION IV STA (23:55)
[2020-08-31] MEDS ORDERED: HYDROmorphone HCL 2 MG TAB PO STA
[2020-08-31] MEDS ORDERED: BACLOFEN 10 MG TAB PO STA
[2020-08-31] MEDS ORDERED: POTASSIUM PHOSPHATE 6 MMOL in 0.9 % SODIUM CHLORIDE 100 ML IV STA (00:07)
[2020-08-31] MEDS ORDERED: PROMETHAZINE 12.5 MG/50.5 ML BAG IV STA (00:41)
--- NOTE | 2020-08-31 00:41 | History & Physical Report ---
Date of Service August 31, 2020 Assessment & Plan (1) Acute hypoxemic respiratory failure: Secondary to severe COVID-19 pneumonia with superimposed bacterial infection No sepsis for now hypertension, stable hx NAFLD cirrhosis, no overt decompensation hx CVA as per records DM2 on insulin pump, suboptimal control as of recent hemoglobin A1c of 7.16 June 2020 chronic pain as per records chronic thrombocytopenia secondary to cirrhosis History possible seizures, stable off maintenance AED Rx as per patient Medical telemetry Supplemental O2 Baseline ABG Decadron indicated for severe COVID-19 pneumonia Ceftriaxone, Doxycycline for superimposed bacterial infection Remdesivir first dose now for severe COVID-19 pneumonia. Monitor LFTs after first dose given patient history of cirrhosis. AM provider to decide on subsequent dosing of antiviral medication. (Patient was counseled regarding potential adverse effects from Remdesivir therapy and provided with patient education sheet. Patient also agreeable to convalescent plasma if warranted. Verbal consent obtained for blood product administration.) Pulmonary consult if without improvement Pharmacy glycemic control consult Re: DM2 insulin pump DVT prophylaxis. SCDs Re: Thrombocytopenia Full code Text document was generated using [employer] voice recognition software. It may contain grammatical or spelling errors. Kindly contact undersigned for clarification of any documentation item in question. History of Present Illness Chief Complaint: Shortness of breath, possible Covid Primary Care Provider: Scott Weldon MD History obtained from patient and records. Medical history significant for seizure disorder, hypertension, hyperlipidemia, past hx of CVA, chronic left hemiparesis as per records, NAFLD cirrhosis, liver lesions (possible malignancy as per patient), DM2 on insulin pump, chronic pain as per records, mood disorder, chronic thrombocytopenia, possible seizures as per records, DONNA on CPAP. Last confinement April 2019 for breakthrough seizures. Patient transferred to [facility] for further evaluation. 2 weeks ago patient noted worsening body aches and flulike symptoms. COVID-19 contacts at home. Outpatient COVID-19 test from 2 weeks ago was negative. Patient noted cough symptoms productive of junky sputum with chest tightness fr om coughing and worsening shortness of breath in the last week. Denies aspiration. At the ER, O2 sats noted to be 80s. IV Decadron given at the ER. Medical History as above Surgical History : Hysteroscopy, vascular procedure, BTL Family History : COPD, diabetes, liver disease, heart disease Personal/Social history : Non-smoker, no EtOH intake, disabled Allergies Allergy/AdvReac Type Severity Reaction Status Date / Time naproxen Allergy Unknown BLEEDING Verified 08/31/20 00:11 Home Medications Medication Instructions Recorded Confirmed Type atenolol 100 mg PO BID 10/02/18 08/31/20 History atorvastatin [Lipitor] 40 mg PO QAM 10/02/18 08/31/20 History dicyclomine 20 mg PO BID PRN 10/02/18 08/31/20 History furosemide [Lasix] 40 mg PO QAM 10/02/18 08/31/20 History loratadine [Claritin] 10 mg PO DAILY PRN 10/02/18 08/31/20 History losartan [Cozaar] 25 mg PO QAM 10/02/18 08/31/20 History magnesium oxide [MagOx] 400 mg PO QAM 10/02/18 08/31/20 History meclizine 25 mg PO TID PRN 10/02/18 08/31/20 History metformin [Glucophage] 1,000 mg PO BIDM 10/02/18 08/31/20 History metoclopramide HCl [Reglan] 5 mg PO AC PRN 10/02/18 08/31/20 History omeprazole 20 mg PO BID 10/02/18 08/31/20 History potassium chloride 10 meq PO BID 10/02/18 08/31/20 History spironolactone [Aldactone] 50 mg PO QAM 10/02/18 08/31/20 History trazodone 200 mg PO HS 10/02/18 08/31/20 History Novolin R Regular U-100 Insuln 0 unit CONTINUOUS SUBCUTANEOUS 02/13/19 08/31/20 History INFUSION DIRECTED hydroxyzine HCl 50 mg PO Q6H PRN 04/18/19 08/31/20 History baclofen 10 mg PO TID 03/07/20 08/31/20 History duloxetine 60 mg PO QAM 03/07/20 08/31/20 History eszopiclone 1 mg PO HS 03/07/20 08/31/20 History pregabalin 75 mg PO TID 03/07/20 08/31/20 History hydromorphone 4 mg PO BID PRN 08/31/20 08/31/20 History ondansetron HCl 8 mg PO Q8 PRN 08/31/20 08/31/20 History Past Med/Surg History Medical History (Updated 08/31/20 @ 09:38 by Jaun Latham MD) Back pain Bipolar disorder Chronic pain Depression GERD (gastroesophageal reflux disease) H/O TIA (transient ischemic attack) and stroke HLD (hyperlipidemia) HTN (hypertension) Hypertension Liver cancer Liver cirrhosis secondary to MENDEZ DONNA (obstructive sleep apnea) Seizure Stroke T2DM (type 2 diabetes mellitus) Thrombocytopenia Vertigo Surgical History History of hysterectomy History of tubal ligation Family History Other No significant family history Social History Smoking Status: Never smoker Second Hand Exposure: No; Do You Dip or Chew Tobacco: No; Tobacco Cessation Education Requested by Patient: No Hx Alcohol Use: No Hx Substance Use: No Preferred Language: Tamazight Communication Ability: Effective Consumer Insights Intern Required: No Beliefs That Will Affect Care: None Current Living Situation: Spouse and Family Current Living Situation Comment: and a son Other Information That Helps Us Care for You: No Feels Safe at Home: Yes Safety Concerns: Feels Safe At This Time Assistive Devices: Cane and Oxygen - Continuous Review of Systems Review of Systems: As per HPI, all 10 systems reviewed, all other ROS negative Physical Exam Physical Exam: GENERAL: Comfortable, morbidly obese, slightly anxious, no respiratory distress SKIN: Normal color, warm HEENT: Bespectacled, Godfrey palpebral conjunctivae, no ptosis, dry buccal mucosa, nasal cannula in place NECK : Supple, short neck, no tenderness CHEST : Decreased breath sounds , no tenderness HEART : RRR, no obvious murmurs ABDOMEN: Some distention, nontender EXTREMITIES : Minimal LE swelling, no LE tenderness, no other conspicuous deformities noted NEUROLOGIC : Coherent, no facial asymmetry, gait and stance not assessed Results & Data Results & Data ([facility] [place]) Vital Signs (Past 12 Hours) Vital Signs Temp Pulse Pulse Resp BP BP Pulse Ox 08/31/20 00:00 90 18 131/91 95 08/30/20 22:33 92 H 20 132/90 88 L 08/30/20 22:13 92 08/30/20 21:05 37.5 C 94 H 20 134/84 93 Laboratory Results Laboratory Results WBC 5.30 K/uL (4.8-10.8) 08/30/20 Unknown RBC 4.62 M/uL (4.2-5.4) 08/30/20 Unknown Hgb 13.1 g/dL (12.0-16.0) 08/30/20 Unknown Hct 39.2 % (37-47) 08/30/20 Unknown MCV 84.8 fL (80-100) 08/30/20 Unknown MCH 28.4 pg (25-34) 08/30/20 Unknown MCHC 33.4 g/dL (32-36) 08/30/20 Unknown RDW Std Deviation 45.6 fL (36.4-46.3) 08/30/20 Unknown RDW Coeff of Bailey 14.6 % (11.5-14.5) H 08/30/20 Unknown Plt Count 76 K/uL (130-400) L 08/30/20 Unknown MPV 9.5 fL (7.4-10.4) 08/30/20 Unknown Immature Gran % (Auto) 0.4 % 08/30/20 Unknown Neut % (Auto) 73.5 % 08/30/20 Unknown Lymph % (Auto) 14.0 % 08/30/20 Unknown Union % (Auto) 11.5 % 08/30/20 Unknown Eos % (Auto) 0.4 % 08/30/20 Unknown Baso % (Auto) 0.2 % 08/30/20 Unknown Neut # (Auto) 3.90 K/uL (1.4-6.5) 08/30/20 Unknown Lymph # (Auto) 0.74 K/uL (1.2-3.4) L 08/30/20 Unknown Union # (Auto) 0.61 K/uL (0.11-0.59) H 08/30/20 Unknown Eos # (Auto) 0.02 K/uL (0-0.5) 08/30/20 Unknown Baso # (Auto) 0.01 K/uL (0-0.2) 08/30/20 Unknown Immature Gran # (Auto) 0.02 K/uL (0.00-0.02) 08/30/20 Unknown Platelet Estimate Decreased (Normal) L 08/30/20 Unknown PT 11.5 Seconds (9.0-12.0) 08/30/20 Unknown INR 1.1 (0.9-1.1) 08/30/20 Unknown Sodium 139 mmol/L (136-145) 08/30/20 22:10 Potassium 4.5 mmol/L (3.5-5.1) 08/30/20 22:10 Chloride 100 mmol/L (98-107) 08/30/20 22:10 Carbon Dioxide 32 mmol/L (21-32) 08/30/20 22:10 Anion Gap 8.0 (3-11) 08/30/20 22:10 BUN 12 mg/dl (7-18) 08/30/20 22:10 Creatinine 1.14 mg/dl (0.6-1.2) 08/30/20 22:10 Est Cr Clr Drug Dosing Not Reportable 08/30/20 22:10 Est GFR ( Amer) 65.9 08/30/20 22:10 Est GFR (Non-Af Amer) 56.8 08/30/20 22:10 BUN/Creatinine Ratio 10.2 (10-20) 08/30/20 22:10 Glucose 200 mg/dl (70-99) H 08/30/20 22:10 Calcium 8.4 mg/dl (8.5-10.1) L 08/30/20 22:10 Phosphorus 1.8 mg/dl (2.5-4.9) L 08/30/20 22:10 Magnesium 1.9 mg/dl (1.8-2.4) 08/30/20 22:10 Total Bilirubin 0.8 mg/dl (0.2-1) 08/30/20 22:10 Direct Bilirubin 0.2 mg/dl (0-0.2) 08/30/20 22:10 AST 68 U/L (15-37) H 08/30/20 22:10 ALT 25 U/L (12-78) 08/30/20 22:10 Alkaline Phosphatase 168 U/L (45-117) H 08/30/20 22:10 Total Creatine Kinase 58 U/L (26-192) 08/30/20 22:10 Troponin I < 0.015 ng/ml (0-0.045) 08/30/20 22:10 NT-Pro-B Natriuret Pep 286 pg/ml (0-450) 08/30/20 22:10 Total Protein 7.3 gm/dl (6.4-8.2) 08/30/20 22:10 Albumin 3.0 gm/dl (3.4-5.0) L 08/30/20 22:10 Globulin 4.3 gm/dl (2.5-4.0) H 08/30/20 22:10 Albumin/Globulin Ratio 0.7 (0.9-2) L 08/30/20 22:10 Lipase 143 U/L (73-393) 08/30/20 22:10 COVID-19 Eval Order CovFluRsv at [facility] 08/30/20 22:06 SARS-CoV-2 (PCR) POSITIVE (Negative) A* 08/30/20 22:06 Influenza Type A (PCR) Negative (Neg) 08/30/20 22:06 Influenza Type B (PCR) Negative (Neg) 08/30/20 22:06 RSV (RT-PCR) Negative (Neg) 08/30/20 22:06 Diagnostic Findings Chest x-ray as per my interpretation infiltrate right EKG as per my interpretation : Rate 95, NSR, LAD, LAFB, nonspecific T wave abnormalities
[2020-08-31] MEDS ORDERED: DOXYCYCLINE HYCLATE 100 MG in DEXTROSE 5% 100 ML IV STA (00:49)
[2020-08-31] MEDS ORDERED: DOXYCYCLINE HYCLATE 100 MG CAP PO ONE (01:24)
[2020-08-31] MEDS ORDERED: ACETAMINOPHEN 325 MG TAB PO PRN (01:56)
[2020-08-31] MEDS ORDERED: REMDESIVIR 200 MG in SODIUM CHLORIDE 0.9% 210 ML IV STA (02:10)
[2020-08-31] MEDS ORDERED: PHARMACY GLYCEMIC MGMT CONSULT PRN (02:12)
[2020-08-31] MEDS ORDERED: PATIENT'S WEIGHT NEEDED STA (02:20)
[2020-08-31] MEDS ORDERED: INSULIN HUMAN NPH SC ONE (03:00)
[2020-08-31] MEDS: cefTRIAXone SODIUM 2,000 MG in DEXTROSE 5% 50 ML IV SCH (03:13)
[2020-08-31 03:30] LABS: Appearance Urine Clear (Clear); Bilirubin Urine Negative (Negative); Blood Urine Negative (Negative); Color Urine Dark Yellow; Glucose Urine UA Negative (Negative); Ketones Urine Negative (Negative); Leukocyte Esterase Urine Negative (Negative); Nitrite Urine Negative (Negative); Protein Urine Negative (Negative); Specific Gravity Urine 1.021 (1.000-1.030); Urobilinogen Urine Negative (Negative); pH Urine 8.5 (4.5-7.5)
[2020-08-31] MEDS ORDERED: SODIUM CHLORIDE 0.9% 10ML FLUSH IV SCH (04:15)
[2020-08-31] MEDS: INSULIN ASPART 100 UNITS/ML 3 ML PEN SC SCH ×5 (04:18→21:07)
[2020-08-31 07:07] LABS: Hematocrit (blood only) 38.8 % (37-47); Hemoglobin 12.9 g/dL (12.0-16.0); Mean Corpuscular Hgb Conc 33.2 g/dL (32-36); Mean Corpuscular Volume 84.3 fL (80-100); RDW Coefficient of Variation 14.5 % (11.5-14.5); RDW Standard Deviation 44.7 fL (36.4-46.3); White Blood Count 4.37 K/uL (4.8-10.8)
[2020-08-31 07:30] LABS: Albumin Level 2.8 gm/dl (3.4-5.0); BUN Creatinine Ratio 12.5 (10-20); C Reactive Protein 9.3 mg/dl (0-0.29); Calcium 8.2 mg/dl (8.5-10.1); Creatinine Clr Calc Pharmacy 81.7 ml/min; Est GFR (African American) 77.2; Est GFR (Non-African American) 66.6; Potassium 4.4 mmol/L (3.5-5.1)
[2020-08-31 07:34] LABS: Mean Platelet Volume 9.8 fL (7.4-10.4); Platelet Count 71 K/uL (130-400)
[2020-08-31 07:35] LABS: Albumin Globulin Ratio 0.7 (0.9-2); Bilirubin,Total 0.5 mg/dl (0.2-1); Ferritin 293.6 ng/ml (8-388); Globulin 4.3 gm/dl (2.5-4.0); Total Protein 7.1 gm/dl (6.4-8.2)
[2020-08-31 07:38] LABS: Basophils # (auto) 0.01 K/uL (0-0.2); Basophils % (auto) 0.2 %; Immature Granulocytes # (auto) 0.01 K/uL (0.00-0.02); Immature Granulocytes % (auto) 0.2 %; Lymphocytes # (auto) 0.62 K/uL (1.2-3.4); Lymphocytes % (auto) 14.2 %; Monocytes # (auto) 0.13 K/uL (0.11-0.59); Neutrophils % (auto) 82.4 %
[2020-08-31] MEDS: LEVALBUTEROL TARTRATE 15 GM HFA.AER.AD INH SCH ×3 (07:49→19:22)
--- NOTE | 2020-08-31 07:54 | XRay Report ---
XR chest 1V portable CLINICAL HISTORY: Atypical chest pain COMPARISON STUDY: 03/07/2020 FINDINGS: The heart is enlarged. There is a left-sided A-Port catheter. Evaluation is somewhat limite d due to the patient's large body habitus. There are nonspecific right basilar opacities, atelectatic versus infectious/inflammatory. Clinical and radiographic follow-up is recommended. There is also a right upper lung zone density possibly representing a rib summation. Radiographic follow-up recommend ed. There are no large pleural effusions[ IMPRESSION: 1. Somewhat limited study due to the patient's large body habitus 2. Nonspecific right basilar opacities, atelectasis versus infectious/inflammatory. Clinical and radi ographic follow-up is recommended ACT 112: Negative or not required by law. Electronically signed by: Andrés Estevez M.D. 08/31/2020 7:53 AM
[2020-08-31] MEDS: BACLOFEN 10 MG TAB PO SCH ×3 (08:13→20:33)
[2020-08-31] MEDS: HYDROmorphone HCL 2 MG TAB PO PRN ×2 (08:13→20:36)
[2020-08-31] MEDS: PREGABALIN 75 MG CAP PO SCH ×3 (08:14→20:34)
[2020-08-31] MEDS: dexAMETHasone 6 MG in SYRINGE 0 ML IV SCH (08:14)
[2020-08-31] MEDS: ATORVASTATIN 40 MG TAB PO SCH (08:14)
[2020-08-31] MEDS: PANTOprazole 40 MG TAB PO SCH ×2 (08:14→20:34)
[2020-08-31] MEDS: LOSARTAN POTASSIUM 25 MG TAB PO SCH (08:14)
[2020-08-31] MEDS: DULoxetine HCL 60 MG CAP PO SCH (08:14)
[2020-08-31] MEDS: ATENOLOL 50 MG TABLET PO SCH ×2 (08:14→20:35)
[2020-08-31] MEDS ORDERED: PHARMACY GLYCEMIC MGMT CONSULT ONE (08:34)
[2020-08-31 08:56] LABS: Estimated Average Glucose 214 mg/dl; Hemoglobin A1C 9.1 % (4.5-5.6)
--- NOTE | 2020-08-31 08:59 | Pharmacy Report ---
Pharmacy Glycemic Short Note 2 - Date of Service August 31, 2020 - Glycemic Short BSG Results (Last 24 hours): 08/30/20 08/31/20 08/31/20 22:10 03:01 06:02 Glucose 200 H 262 H POC Glucose 170 H 08/31/20 07:19 Glucose POC Glucose 280 H OUTPATIENT ANTIDIABETIC REGIMEN: * Metformin 1000 mg PO BIDM * Novolin-R Medtronic 630G Minimed Insulin Pump * Basal Rate: 5 units/hr (5584-7460) and 7 units/hr (0860-9323) {Total Daily Basal Dose = 152 units/day} * Utilizes set Bolus doses: 15 units w/ breakfast & lunch, 22 units w/ dinner, 10 units w/ chocolate milk snack before bed * For Snacks only: carb ratio of 1:3 * Has a correction factor of 1:5 but should not be using * Goal BSG range = 100-140 mg/dL * Average Total Daily Dose (from 08/20/20): 204 units/day * HbA1c = 9.1% (08/31/20) RISK FACTORS FOR INSULIN RESISTANCE: * Steroids: Dexamethasone 10 mg IV x 1 last evening * Dexamethasone 6 mg IV daily x 10 days * COVID Infection: Remdesivir + Ceftriaxone + Doxycycline * Diet: Full liquid ASSESSMENT: * 50 yo F admitted secondary to COVID. Pharmacy has been consulted to assist with inpatient glycemic management. * Patient has a poor appetite and is nauseated so her insulin pump is currently off. Will manage with basal-bolus insulin for now. * BSGs since admission have been 170-280 mg/dL. She did received 10 units of IV dexamethasone last night and now will be started on the standard COVID therapy of 6 mg IV dexamethasone daily x 10 days. Patient received 50 units of NPH around 0400 this AM. * Believe patient will require very large doses of insulin inpatient given her home dosing as well as uncontrolled A1c, steroid use, and acute illness. * Will start patient on 75 units of Lantus BID (approximately home basal dose). Will monitor BSGs as this is an aggressive dose given her poor appetite. * Will continue with NPH 50 units daily for now to cover IV dexamethasone. * Will start Novolog based on total daily outpatient basal dose. PLAN FOR INPATIENT GLYCEMIC CONTROL: * Hold outpatient oral diabetes medications * Basal insulin * Lantus 75 units SQ BID * NPH 50 units SQ daily - to be given with dexamethasone * Bolus insulin * NovoLog per scale ACHS or Q6hrs while NPO * Goal Range: Low 110 mg/dL - High 140 mg/dL * Correction Factor: 6 mg/dL/unit * Nutritional / Prandial insulin per carb ratio of 1 unit per 3 grams CHO consumed PLAN FOR DISCHARGE: * HbA1c = 9.1% from 08/31/20. This has worsened from 7.9% in June 2020. Goal HbA1c for this patient would be < 7%. * Patient follows with [facility] as an outpatient for T2DM management. Her A1c from this admission aligns with pump data that was downloaded from 08/07- 08/20/20. Basal rates were recently adjusted at 08/20/20 visit. * Recommend continuing with current outpatient regimen upon discharge given recent change in basal rates. Patient should continue to follow with [facility].
[2020-08-31] MEDS: INSULIN GLARGINE 100 UNIT/ML VIAL SC SCH ×2 (09:46→21:08)
[2020-08-31] MEDS ORDERED: LORATADINE 10 MG TAB PO PRN (14:06)
--- NOTE | 2020-08-31 15:55 | Electrocardiogram Report ---
Test Reason : Blood Pressure : / mmHG Vent. Rate : 093 BPM Atrial Rate : 093 BPM P-R Int : 126 ms QRS Dur : 078 ms QT Int : 352 ms P-R-T Axes : 064 003 100 degrees QTc Int : 437 ms Normal sinus rhythm Nonspecific T wave abnormality Abnormal ECG When compared with ECG of 07-MAR-2020 15:27, Nonspecific T wave abnormality has replaced inverted T waves in Lateral leads Confirmed by Clark Kathleen ([id number]) on 08/31/2020 3:55:10 PM Referred By: REFERRED SELF Confirmed By:Jerrell Kathleen
--- NOTE | 2020-08-31 16:37 | Hospitalist Progress Note ---
Date of Service August 31, 2020 Assessment & Plan (1) Acute hypoxemic respiratory failure: Acute respiratory failure with hypoxia COVID pneumonia CXR:Nonspecific right basilar opacities, atelectasis versus infectious/inflammatory. Clinical and radiographic follow-up is recommended COVID Screen:Positive on 08/30/20 Symptoms Onset about 2 weeks ago Troponin negative CRP:9.3 Ferritin:293 Continue Dexamethasone Received 1st dose of Remdesivir, Patient would like not to complete entire course given her Cirrhosis history Isolation precautions--Airborne/Contact Consult Pulmonology/ID if needed Encourage frequent Proning Lasix, Nebs PRN Continue Supplemental Oxygen as needed DVT prophylaxis SCDs Re: Thrombocytopenia Monitor LFTs, renal function Check Procalcitonin in AM DM II HbA1C:9.1 Uncontrolled blood glucose levels secondary to steroids Continue insulin therapy Glycemic pharmacy consulted Hypertension stable Continue losartan, atenolol NAFLD Cirrhosis Continue home diuretics Monitor Chronic thrombocytopenia secondary to cirrhosis No bleeding issues Monitor platelet count H/O Possible seizures stable Currently not on meds DVT Px: SCDs Re: Thrombocytopenia Code Status Full code Admission and Anticipated Discharge Date Admission Date: August 31, 2020 Subjective Patient is seen and examined at bedside States feeling better today Less cough, SOB today Denies any chest pain, nausea, abd pain, dizziness Offers no other complaints Review of Systems Review of Systems: All systems reviewed & are unremarkable except as noted in HPI & below Physical Exam Physical Exam: Physical Exam: Vitals signs as noted above General Appearance:Morbidly Obese, no apparent distress Head: normocephalic, Atraumatic Eyes: normal inspection, EOMI Neck: supple, Trachea midline Respiratory/Chest: Decreased breath sounds, CTA, No accessory muscle use Cardiovascular: S1, S2, No murmur Abdomen/GI:Soft, Non tender, Bowel sounds present Extremities/Musculoskelatal:normal inspection, no edema Neurologic/Psych:AAOX3, grossly no focal neurological deficits Skin: normal color, warm Results & Data Results & Data ([facility]) Vital Signs (Past 12 Hours) Vital Signs Temp Pulse Pulse Resp BP Pulse Ox 08/31/20 15:06 36.8 C 72 18 126/71 92 08/31/20 12:58 76 18 124/69 93 08/31/20 12:22 86 18 96 08/31/20 08:08 36.6 C 78 18 148/86 H 91 08/31/20 07:59 83 08/31/20 07:50 75 18 95 Laboratory Results Short CBC 08/30/20 08/31/20 Range/Units Unknown 06:02 WBC 5.30 4.37 L (4.8-10.8) K/uL Hgb 13.1 12.9 (12.0-16.0) g/dL Hct 39.2 38.8 (37-47) % Plt Count 76 L 71 L (130-400) K/uL BMP 08/30/20 08/31/20 22:10 06:02 Sodium 139 134 L Potassium 4.5 4.4 Chloride 100 99 Carbon Dioxide 32 30 BUN 12 13 Creatinine 1.14 1.00 Glucose 200 H 262 H Calcium 8.4 L 8.2 L Cardiac Enzymes 08/30/20 Range/Units 22:10 Total Creatine Kinase 58 (26-192) U/L Troponin I < 0.015 (0-0.045) ng/ml Liver Function 08/30/20 08/31/20 Range/Units 22:10 06:02 Total Bilirubin 0.8 0.5 (0.2-1) mg/dl Direct Bilirubin 0.2 (0-0.2) mg/dl AST 68 H 69 H (15-37) U/L ALT 25 21 (12-78) U/L Alkaline Phosphatase 168 H 165 H (45-117) U/L Albumin 3.0 L 2.8 L (3.4-5.0) gm/dl Urine 08/31/20 Range/Units 02:00 Urine Color Dark Yellow Urine Appearance Clear (Clear) Urine pH 8.5 H (4.5-7.5) Ur Specific [place] 1.021 (1.000-1.030) Urine Protein Negative (Negative) Urine Glucose (UA) Negative (Negative)
[2020-08-31] MEDS: hydrOXYzine HCl 25 MG TAB PO PRN (17:34)
[2020-08-31] MEDS: FUROSEMIDE 40 MG TAB PO SCH (17:35)
[2020-08-31] MEDS: MAGNESIUM OXIDE 400 MG TAB PO SCH (17:35)
[2020-08-31] MEDS: SPIRONOLACTONE 25 MG TAB PO SCH (17:36)
[2020-08-31] MEDS: traZODone HCL 100 MG TAB PO SCH (20:32)
[2020-08-31] MEDS: POTASSIUM CHLORIDE 10 MEQ TABCR PO SCH (20:32)
[2020-08-31] MEDS: ESZOPICLONE 1 MG TAB PO SCH (20:34)
[2020-08-31] MEDS: DOXYCYCLINE HYCLATE 100 MG CAP PO SCH (20:36)
[2020-09-01] MEDS: LEVALBUTEROL TARTRATE 15 GM HFA.AER.AD INH SCH ×2 (00:45→07:50)
[2020-09-01] MEDS: INSULIN ASPART 100 UNITS/ML 3 ML PEN SC SCH ×6 (00:46→20:46)
[2020-09-01] MEDS: cefTRIAXone SODIUM 2,000 MG in DEXTROSE 5% 50 ML IV SCH (03:39)
[2020-09-01 06:53] LABS: Hematocrit (blood only) 41.1 % (37-47); Hemoglobin 13.7 g/dL (12.0-16.0); Mean Corpuscular Hemoglobin 27.6 pg (25-34); Mean Corpuscular Hgb Conc 33.3 g/dL (32-36); Mean Corpuscular Volume 82.9 fL (80-100); Mean Platelet Volume 10.1 fL (7.4-10.4); Platelet Count 100 K/uL (130-400); RDW Coefficient of Variation 14.3 % (11.5-14.5); RDW Standard Deviation 43.5 fL (36.4-46.3); Red Blood Count 4.96 M/uL (4.2-5.4); White Blood Count 9.94 K/uL (4.8-10.8)
[2020-09-01 07:20] LABS: Albumin Globulin Ratio 0.6 (0.9-2); Albumin Level 2.7 gm/dl (3.4-5.0); BUN Creatinine Ratio 24.1 (10-20); Bilirubin,Total 0.3 mg/dl (0.2-1); Calcium 8.3 mg/dl (8.5-10.1); Creatinine Clr Calc Pharmacy 86.8 ml/min; Est GFR (African American) 83.1; Est GFR (Non-African American) 71.7; Globulin 4.5 gm/dl (2.5-4.0); Magnesium 2.3 mg/dl (1.8-2.4); Potassium 4.7 mmol/L (3.5-5.1); Total Protein 7.2 gm/dl (6.4-8.2)
[2020-09-01] MEDS: ATENOLOL 50 MG TABLET PO SCH ×2 (08:23→20:22)
[2020-09-01] MEDS: dexAMETHasone 6 MG in SYRINGE 0 ML IV SCH (08:23)
[2020-09-01] MEDS: DOXYCYCLINE HYCLATE 100 MG CAP PO SCH ×2 (08:23→20:22)
[2020-09-01] MEDS: PANTOprazole 40 MG TAB PO SCH ×2 (08:24→20:22)
[2020-09-01] MEDS: BACLOFEN 10 MG TAB PO SCH ×3 (08:24→20:22)
[2020-09-01] MEDS: DULoxetine HCL 60 MG CAP PO SCH (08:24)
[2020-09-01] MEDS: POTASSIUM CHLORIDE 10 MEQ TABCR PO SCH ×2 (08:24→20:23)
[2020-09-01] MEDS: LOSARTAN POTASSIUM 25 MG TAB PO SCH (08:25)
[2020-09-01] MEDS: hydrOXYzine HCl 25 MG TAB PO PRN ×2 (08:25→20:24)
[2020-09-01] MEDS: SPIRONOLACTONE 25 MG TAB PO SCH (08:26)
[2020-09-01] MEDS: FUROSEMIDE 40 MG TAB PO SCH (08:26)
[2020-09-01] MEDS: ATORVASTATIN 40 MG TAB PO SCH (08:27)
[2020-09-01] MEDS: INSULIN GLARGINE 100 UNIT/ML VIAL SC SCH ×2 (08:28→20:49)
[2020-09-01] MEDS: INSULIN HUMAN NPH SC SCH (08:31)
[2020-09-01] MEDS: HYDROmorphone HCL 2 MG TAB PO PRN ×2 (09:04→20:36)
[2020-09-01] MEDS: PREGABALIN 75 MG CAP PO SCH ×3 (09:04→20:36)
--- NOTE | 2020-09-01 09:51 | Pharmacy Report ---
Pharmacy Glycemic Short Note 2 - Date of Service September 01, 2020 - Glycemic Short BSG Results (Last 24 hours): 08/31/20 08/31/20 08/31/20 11:00 11:02 11:02 Glucose POC Glucose 364 H* 309 H* 309 H* 08/31/20 08/31/20 08/31/20 11:06 16:26 20:27 Glucose POC Glucose 327 H* 269 H 196 H 09/01/20 09/01/20 09/01/20 00:14 04:09 05:14 Glucose POC Glucose 126 H 77 99 09/01/20 09/01/20 06:09 07:29 Glucose 92 POC Glucose 102 H OUTPATIENT ANTIDIABETIC REGIMEN: * Metformin 1000 mg PO BIDM * Novolin-R Medtronic 630G Minimed Insulin Pump * Basal Rate: 5 units/hr (9689-6271) and 7 units/hr (3793-3198) {Total Daily Basal Dose = 152 units/day} * Utilizes set Bolus doses: 15 units w/ breakfast & lunch, 22 units w/ dinner, 10 units w/ chocolate milk snack before bed * For Snacks only: carb ratio of 1:3 * Has a correction factor of 1:5 but should not be using * Goal BSG range = 100-140 mg/dL * Average Total Daily Dose (from 08/20/20): 204 units/day * HbA1c = 9.1% (08/31/20) RISK FACTORS FOR INSULIN RESISTANCE: * Steroids: Dexamethasone 10 mg IV x 1 last evening * Dexamethasone 6 mg IV daily x 10 days * COVID Infection: Remdesivir + Ceftriaxone + Doxycycline * Diet: Full liquid ASSESSMENT: 09/01: * Pt has received 349 units of insulin over the past 24hrs * 150 units of basal with Lantus * 50 units of NPH for steroid induced hyperglycemia * 149 units of bolus with NovoLog * BSGs [phone] mg/dl * Severe hyperglycemia yesterday secondary to insulin deficiency (turned off her pump yesterday), steroids, illness, and stress * AM fasting BSG in goal range this AM @ 102 mg/dl. However, concern for hypo over the next day or so if stressed insulin dosing is continued. Significant downward trend in BSGs so quickly warrant empiric dose decrease. Will lower basal insulin and loosen CF since likely too much basal insulin on board. No change to NPH since DXM continues at 6mg IV daily. 08/31: * 50 yo F admitted secondary to COVID. Pharmacy has been consulted to assist with inpatient glycemic management. * Patient has a poor appetite and is nauseated so her insulin pump is currently off. Will manage with basal-bolus insulin for now. * BSGs since admission have been 170-280 mg/dL. She did received 10 units of IV dexamethasone last night and now will be started on the standard COVID therapy of 6 mg IV dexamethasone daily x 10 days. Patient received 50 units of NPH around 0400 this AM. * Believe patient will require very large doses of insulin inpatient given her home dosing as well as uncontrolled A1c, steroid use, and acute illness. * Will start patient on 75 units of Lantus BID (approximately home basal dose). Will monitor BSGs as this is an aggressive dose given her poor appetite. * Will continue with NPH 50 units daily for now to cover IV dexamethasone. * Will start Novolog based on total daily outpatient basal dose. PLAN FOR INPATIENT GLYCEMIC CONTROL: * Hold outpatient oral diabetes medications * Basal insulin: decrease Lantus * Lantus 70 units SQ BID * NPH 50 units SQ daily - to be given with dexamethasone * Bolus insulin: loosen CF * NovoLog per scale ACHS or Q6hrs while NPO * Goal Range: Low 110 mg/dL - High 140 mg/dL * Correction Factor: 8 mg/dL/unit * Nutritional / Prandial insulin per carb ratio of 1 unit per 2 grams CHO consumed PLAN FOR DISCHARGE: * HbA1c = 9.1% from 08/31/20. This has worsened from 7.9% in June 2020. Goal HbA1c for this patient would be < 7%. * Patient follows with [facility] as an outpatient for T2DM management. Her A1c from this admission aligns with pump data that was downloaded from 08/07- 08/20/20. Basal rates were recently adjusted at 08/20/20 visit. * Recommend continuing with current outpatient regimen upon discharge given recent change in basal rates. Patient should continue to follow with [facility] clinic.
[2020-09-01] MEDS: PROMETHAZINE HCL 12.5 MG in SODIUM CHLORIDE 0.9% 50 ML IV PRN (10:02)
[2020-09-01] MEDS ORDERED: LEVALBUTEROL TARTRATE 15 GM HFA.AER.AD INH PRN (10:21)
[2020-09-01] MEDS ORDERED: REMDESIVIR 100 MG in SODIUM CHLORIDE 0.9% 230 ML IV SCH ×2 (12:00→20:00)
[2020-09-01] MEDS ORDERED: SODIUM CHLORIDE 0.9% 10ML FLUSH IV SCH (13:00)
--- NOTE | 2020-09-01 17:15 | Hospitalist Progress Note ---
Date of Service September 01, 2020 Assessment & Plan (1) Acute hypoxemic respiratory failure: Acute respiratory failure with hypoxia COVID pneumonia CXR:Nonspecific right basilar opacities, atelectasis versus infectious/inflammatory. Clinical and radiographic follow-up is recommended COVID Screen:Positive on 08/30/20 Symptoms Onset about 2 weeks ago Troponin negative CRP:9.3 Ferritin:293 Continue Dexamethasone Received 2 doses of Remdesivir, Patient would not like to complete entire course given her Cirrhosis history Isolation precautions--Airborne/Contact Consult Pulmonology/ID if needed Encourage frequent Proning Lasix, Nebs PRN Continue Supplemental Oxygen as needed DVT prophylaxis Lovenox Monitor LFTs, renal function Check Procalcitonin in AM Saturating low 90s on minimal supplemental oxygen Diarrhea Obtain stool for C. difficile if recurrent DM II HbA1C:9.1 Uncontrolled blood glucose levels secondary to steroids Continue insulin therapy Glycemic pharmacy consulted Hypertension stable Continue losartan, atenolol NAFLD Cirrhosis Continue home diuretics Monitor Chronic thrombocytopenia secondary to cirrhosis No bleeding issues Monitor platelet count H/O Possible seizures stable Currently not on meds DVT Px: Lovenox SQ Monitor for Thrombocytopenia Code Status Full code Admission and Anticipated Discharge Date Admission Date: August 31, 2020 Subjective Patient is seen and examined at bedside States having more dyspnea today Reports cough with expectoration Also states having diarrhea Denies any chest pain, nausea, abd pain, dizziness Offers no other complaints Saturating low 90s on minimal supplemental oxygen Review of Systems Review of Systems: All systems reviewed & are unremarkable except as noted in HPI & below Physical Exam Physical Exam: Physical Exam: Vitals signs as noted above General Appearance:Morbidly Obese, no apparent distress Head: normocephalic, Atraumatic Eyes: normal inspection, EOMI Neck: supple, Trachea midline Respiratory/Chest: Decreased breath sounds, CTA, No accessory muscle use Cardiovascular: S1, S2, No murmur Abdomen/GI:Soft, Non tender, Bowel sounds present Extremities/Musculoskelatal:normal inspection, no edema Neurologic/Psych:AAOX3, grossly no focal neurological deficits Skin: normal color, warm Results & Data Results & Data ([facility]) Vital Signs (Past 12 Hours) Vital Signs Temp Pulse Pulse Resp BP Pulse Ox 09/01/20 15:23 36.7 C 73 19 115/66 92 09/01/20 14:49 84 09/01/20 11:11 36.9 C 84 20 123/71 92 09/01/20 09:00 70 09/01/20 07:51 77 18 92 09/01/20 07:28 37.1 C 73 20 137/79 93 Laboratory Results Short CBC 09/01/20 Range/Units 06:09 WBC 9.94 (4.8-10.8) K/uL Hgb 13.7 (12.0-16.0) g/dL Hct 41.1 (37-47) % Plt Count 100 L (130-400) K/uL BMP 09/01/20 06:09 Sodium 142 D Potassium 4.7 Chloride 108 H Carbon Dioxide 29 BUN 23 H D Creatinine 0.94 Glucose 92 Calcium 8.3 L Liver Function 09/01/20 Range/Units 06:09 Total Bilirubin 0.3 (0.2-1) mg/dl AST 49 H (15-37) U/L ALT 21 (12-78) U/L Alkaline Phosphatase 158 H (45-117) U/L Albumin 2.7 L (3.4-5.0) gm/dl
[2020-09-01] MEDS: MAGNESIUM OXIDE 400 MG TAB PO SCH (18:19)
[2020-09-01] MEDS: ENOXAPARIN INJ 40 MG/0.4 ML SYR SQ SCH (18:27)
[2020-09-01] MEDS: traZODone HCL 100 MG TAB PO SCH (20:23)
[2020-09-01] MEDS: ESZOPICLONE 1 MG TAB PO SCH (20:36)
[2020-09-02] MEDS: cefTRIAXone SODIUM 2,000 MG in DEXTROSE 5% 50 ML IV SCH (02:56)
[2020-09-02 07:16] LABS: Hematocrit (blood only) 39.7 % (37-47); Hemoglobin 13.9 g/dL (12.0-16.0); Mean Corpuscular Volume 82.7 fL (80-100); Mean Platelet Volume 9.4 fL (7.4-10.4); Platelet Count 115 K/uL (130-400); RDW Coefficient of Variation 14.6 % (11.5-14.5); RDW Standard Deviation 44.4 fL (36.4-46.3)
[2020-09-02] MEDS: FUROSEMIDE 40 MG TAB PO SCH (07:36)
[2020-09-02] MEDS: PREGABALIN 75 MG CAP PO SCH ×3 (07:37→20:48)
[2020-09-02] MEDS: DULoxetine HCL 60 MG CAP PO SCH (07:37)
[2020-09-02] MEDS: POTASSIUM CHLORIDE 10 MEQ TABCR PO SCH ×2 (07:37→20:33)
[2020-09-02] MEDS: HYDROmorphone HCL 2 MG TAB PO PRN ×2 (07:37→20:48)
[2020-09-02] MEDS: ATORVASTATIN 40 MG TAB PO SCH (07:37)
[2020-09-02] MEDS: ATENOLOL 50 MG TABLET PO SCH ×2 (07:38→20:33)
[2020-09-02] MEDS: BACLOFEN 10 MG TAB PO SCH ×3 (07:38→20:33)
[2020-09-02] MEDS: SPIRONOLACTONE 25 MG TAB PO SCH (07:38)
[2020-09-02] MEDS: LOSARTAN POTASSIUM 25 MG TAB PO SCH (07:38)
[2020-09-02] MEDS: PANTOprazole 40 MG TAB PO SCH ×2 (07:38→20:32)
[2020-09-02] MEDS: DOXYCYCLINE HYCLATE 100 MG CAP PO SCH ×2 (07:38→20:32)
[2020-09-02] MEDS: hydrOXYzine HCl 25 MG TAB PO PRN ×3 (07:39→20:32)
[2020-09-02 07:50] LABS: Albumin Globulin Ratio 0.6 (0.9-2); Albumin Level 2.6 gm/dl (3.4-5.0); BUN Creatinine Ratio 21.5 (10-20); Bilirubin,Total 0.4 mg/dl (0.2-1); Calcium 8.5 mg/dl (8.5-10.1); Est GFR (African American) 82.1; Est GFR (Non-African American) 70.8; Globulin 4.4 gm/dl (2.5-4.0); Potassium 3.7 mmol/L (3.5-5.1)
[2020-09-02] MEDS: INSULIN GLARGINE 100 UNIT/ML VIAL SC SCH ×3 (07:59→20:56)
[2020-09-02] MEDS: INSULIN HUMAN NPH SC SCH (07:59)
[2020-09-02] MEDS: dexAMETHasone 6 MG in SYRINGE 0 ML IV SCH (08:05)
[2020-09-02] MEDS: INSULIN ASPART 100 UNITS/ML 3 ML PEN SC SCH ×4 (08:46→20:52)
--- NOTE | 2020-09-02 09:26 | Pharmacy Report ---
Pharmacy Glycemic Short Note 2 - Date of Service September 02, 2020 - Glycemic Short BSG Results (Last 24 hours): 09/01/20 09/01/20 09/01/20 11:44 16:19 20:37 Glucose POC Glucose 143 H 175 H 251 H 09/02/20 09/02/20 06:49 07:56 Glucose 94 POC Glucose 76 OUTPATIENT ANTIDIABETIC REGIMEN: * Metformin 1000 mg PO BIDM * Novolin-R Medtronic 630G Minimed Insulin Pump * Basal Rate: 5 units/hr (1608-7905) and 7 units/hr (5654-0135) {Total Daily Basal Dose = 152 units/day} * Utilizes set Bolus doses: 15 units w/ breakfast & lunch, 22 units w/ dinner, 10 units w/ chocolate milk snack before bed * For Snacks only: carb ratio of 1:3 * Has a correction factor of 1:5 but should not be using * Goal BSG range = 100-140 mg/dL * Average Total Daily Dose (from 08/20/20): 204 units/day * HbA1c = 9.1% (08/31/20) RISK FACTORS FOR INSULIN RESISTANCE: * Steroids: Dexamethasone 10 mg IV x 1 last evening * Dexamethasone 6 mg IV daily x 10 days * COVID Infection: Remdesivir + Ceftriaxone + Doxycycline * Diet: Full liquid ASSESSMENT: 09/02: * Pt has received 293 units of insulin over the past 24hrs * 140 units of basal with Lantus * 50 units of NPH for steroid induced hyperglycemia * 103 units of bolus with NovoLog * BSGs [phone] mg/dl * BSGs all in goal range yesterday with the exception of HS BSG. Do not want to adjust CF/CR based off of just one BSG - if this continues to be a trend will tighten dinner time CR to prevent high at HS * AM fasting BSG is below goal range this AM at 76 mg/dl. Fasting BSG still trending downwards. Will decrease basal insulin with Lantus 09/01: * Pt has received 349 units of insulin over the past 24hrs * 150 units of basal with Lantus * 50 units of NPH for steroid induced hyperglycemia * 149 units of bolus with NovoLog * BSGs [phone] mg/dl * Severe hyperglycemia yesterday secondary to insulin deficiency (turned off her pump yesterday), steroids, illness, and stress * AM fasting BSG in goal range this AM @ 102 mg/dl. However, concern for hypo over the next day or so if stressed insulin dosing is continued. Significant downward trend in BSGs so quickly warrant empiric dose decrease. Will lower basal insulin and loosen CF since likely too much basal insulin on board. No change to NPH since DXM continues at 6mg IV daily. 08/31: * 50 yo F admitted secondary to COVID. Pharmacy has been consulted to assist with inpatient glycemic management. * Patient has a poor appetite and is nauseated so her insulin pump is currently off. Will manage with basal-bolus insulin for now. * BSGs since admission have been 170-280 mg/dL. She did received 10 units of IV dexamethasone last night and now will be started on the standard COVID therapy of 6 mg IV dexamethasone daily x 10 days. Patient received 50 units of NPH around 0400 this AM. * Believe patient will require very large doses of insulin inpatient given her home dosing as well as uncontrolled A1c, steroid use, and acute illness. * Will start patient on 75 units of Lantus BID (approximately home basal dose). Will monitor BSGs as this is an aggressive dose given her poor appetite. * Will continue with NPH 50 units daily for now to cover IV dexamethasone. * Will start Novolog based on total daily outpatient basal dose. PLAN FOR INPATIENT GLYCEMIC CONTROL: * Hold outpatient oral diabetes medications * Basal insulin: decrease Lantus * Lantus 65 units SQ BID * No change to NPH 50 units SQ daily - to be given with dexamethasone * Bolus insulin: no change * NovoLog per scale ACHS or Q6hrs while NPO * Goal Range: Low 110 mg/dL - High 140 mg/dL * Correction Factor: 8 mg/dL/unit * Nutritional / Prandial insulin per carb ratio of 1 unit per 2 grams CHO consumed PLAN FOR DISCHARGE: * HbA1c = 9.1% from 08/31/20. This has worsened from 7.9% in June 2020. Goal HbA1c for this patient would be < 7%. * Patient follows with [facility] clinic as an outpatient for T2DM management. Her A1c from this admission aligns with pump data that was downloaded from 08/07- 08/20/20. Basal rates were recently adjusted at 08/20/20 visit. * Recommend continuing with current outpatient regimen upon discharge given recent change in basal rates. Patient should continue to follow with [facility].
--- NOTE | 2020-09-02 16:17 | Hospitalist Progress Note ---
Date of Service September 02, 2020 Assessment & Plan (1) Acute hypoxemic respiratory failure: Acute respiratory failure with hypoxia COVID pneumonia CXR:Nonspecific right basilar opacities, atelectasis versus infectious/inflammatory. Clinical and radiographic follow-up is recommended COVID Screen:Positive on 08/30/20 Symptoms Onset about 2 weeks ago Troponin negative CRP:9.3 Ferritin:293 Procalcitonin:0.14 Continue Dexamethasone as per protocol Received 2 doses of Remdesivir, Patient would not like to complete entire course given her Cirrhosis history Isolation precautions--Airborne/Contact Consult Pulmonology/ID if needed Encourage frequent Proning Lasix, Nebs PRN DVT prophylaxis Lovenox Wean off of oxygen as able Diarrhea Obtain stool for C. difficile if recurrent Improving DM II HbA1C:9.1 Uncontrolled blood glucose levels secondary to steroids Continue insulin therapy Glycemic pharmacy consulted Hypertension stable Continue losartan, atenolol NAFLD Cirrhosis Continue home diuretics Monitor Chronic thrombocytopenia secondary to cirrhosis No bleeding issues Monitor platelet count H/O Possible seizures stable Currently not on meds DVT Px: Lovenox SQ Monitor for Thrombocytopenia Code Status Full code Admission and Anticipated Discharge Date Admission Date: August 31, 2020 Subjective Patient is seen and examined at bedside No new complaints Subjectively feels doing well Tried to wean off of oxygen, but unsuccessful Minimal cough Less diarrhea today Denies any chest pain, nausea, abd pain, dizziness, dyspnea Review of Systems Review of Systems: All systems reviewed & are unremarkable except as noted in HPI & below Physical Exam Physical Exam: Physical Exam: Vitals signs as noted above General Appearance:Morbidly Obese, no apparent distress Head: normocephalic, Atraumatic Eyes: normal inspection, EOMI Neck: supple, Trachea midline Respiratory/Chest: Decreased breath sounds, Minimal basal crackles, No accessory muscle use Cardiovascular: S1, S2, No murmur Abdomen/GI:Soft, Non tender, Bowel sounds present Extremities/Musculoskelatal:normal inspection, no edema Neurologic/Psych:AAOX3, grossly no focal neurological deficits Skin: normal color, warm Results & Data Results & Data ([facility]) Vital Signs (Past 12 Hours) Vital Signs Temp Pulse Pulse Resp BP BP Pulse Ox 09/02/20 15:58 37.0 C 66 18 131/82 91 09/02/20 11:03 36.4 C L 67 18 119/75 91 09/02/20 08:00 68 09/02/20 07:07 36.7 C 65 18 129/78 91 Laboratory Results Short CBC 09/02/20 Range/Units 06:49 WBC 8.40 (4.8-10.8) K/uL Hgb 13.9 (12.0-16.0) g/dL Hct 39.7 (37-47) % Plt Count 115 L (130-400) K/uL BMP 09/02/20 06:49 Sodium 140 Potassium 3.7 D Chloride 106 Carbon Dioxide 30 BUN 21 H Creatinine 0.95 Glucose 94 Calcium 8.5 Liver Function 09/02/20 Range/Units 06:49 Total Bilirubin 0.4 (0.2-1) mg/dl AST 44 H (15-37) U/L ALT 19 (12-78) U/L Alkaline Phosphatase 141 H (45-117) U/L Albumin 2.6 L (3.4-5.0) gm/dl
[2020-09-02] MEDS: ENOXAPARIN INJ 40 MG/0.4 ML SYR SQ SCH (18:07)
[2020-09-02] MEDS: MAGNESIUM OXIDE 400 MG TAB PO SCH (18:07)
[2020-09-02] MEDS: traZODone HCL 100 MG TAB PO SCH (20:32)
[2020-09-02] MEDS: ESZOPICLONE 1 MG TAB PO SCH (20:48)
[2020-09-02] MEDS ORDERED: NITROGLYCERIN SL 0.4 MG/TAB TAB SL STA (22:54)
[2020-09-03 00:02] LABS: Partial Thromboplastin Ratio 1.1; Partial Thromboplastin Time 28.2 Seconds (21.0-31.0)
[2020-09-03] MEDS ORDERED: OPTIRAY 320 125ml IV ONE (00:05)
[2020-09-03] MEDS ORDERED: SODIUM CHLORIDE 0.9% 500 ML IV ONE (01:18)
[2020-09-03] MEDS: cefTRIAXone SODIUM 2,000 MG in DEXTROSE 5% 50 ML IV SCH (02:10)
[2020-09-03 06:09] LABS: Hemoglobin 13.2 g/dL (12.0-16.0); Mean Corpuscular Hemoglobin 27.5 pg (25-34); Mean Corpuscular Volume 83.3 fL (80-100); Platelet Count 111 K/uL (130-400); RDW Coefficient of Variation 14.3 % (11.5-14.5); RDW Standard Deviation 44.2 fL (36.4-46.3); White Blood Count 8.33 K/uL (4.8-10.8)
[2020-09-03 06:39] LABS: BUN Creatinine Ratio 22.5 (10-20); Blood Urea Nitrogen 22 mg/dl (7-18); Calcium 8.1 mg/dl (8.5-10.1); Carbon Dioxide 31 mmol/L (21-32); Chloride 106 mmol/L (98-107); Creatinine Clr Calc Pharmacy 81.5 ml/min; Est GFR (African American) 78.1; Est GFR (Non-African American) 67.4; Glucose 92 mg/dl (70-99); Magnesium 2.2 mg/dl (1.8-2.4); Potassium 3.8 mmol/L (3.5-5.1); Sodium 139 mmol/L (136-145)
[2020-09-03 06:44] LABS: Troponin I < 0.015 ng/ml (0-0.045)
--- NOTE | 2020-09-03 07:54 | CT Scan Report ---
CHEST CTA for PULMONARY ARTERIES CT DOSE: 809.86 mGy.cm HISTORY: Covid positive. Atypical chest pain. Shortness of breath. TECHNIQUE: Multiaxial CT images of the chest were performed following the intravenous administration of contrast to evaluate the pulmonary arteries. Maximal intensity projection images were also obtaine d. A dose lowering technique was utilized adhering to the principles of ALARA. COMPARISON STUDY: Chest CTA 10/02/2018. FINDINGS: Normal caliber thoracic aorta with no evidence for dissection. The heart is mildly enlarged . No pleural or pericardial effusions. Left subclavian Port-A-Cath terminates in the SVC. No filling defects within the pulmonary arteries to suggest pulmonary embolus. Limited views of the upper abdome n demonstrate a cirrhotic liver and splenomegaly. This remains unchanged. Normal adrenal glands. The esophagus is normal in caliber. No mediastinal lymphadenopathy. A few mildly enlarged hilar lymph nod es which may be reactive. No pneumothorax. Multifocal scattered patchy airspace opacities consistent with a viral pneumonia. IMPRESSION: 1. No evidence for pulmonary embolus. 2. Moderate multifocal pneumonia. 3. Cirrhotic liver with splenomegaly, unchanged. ACT 112: Negative or not required by law. Electronically signed by: Rudy Borden M.D. 09/03/2020 7:53 AM
[2020-09-03] MEDS: FUROSEMIDE 40 MG TAB PO SCH (08:11)
[2020-09-03] MEDS: DULoxetine HCL 60 MG CAP PO SCH (08:11)
[2020-09-03] MEDS: BACLOFEN 10 MG TAB PO SCH ×3 (08:12→20:16)
[2020-09-03] MEDS: POTASSIUM CHLORIDE 10 MEQ TABCR PO SCH ×2 (08:12→20:18)
[2020-09-03] MEDS: ATORVASTATIN 40 MG TAB PO SCH (08:12)
[2020-09-03] MEDS: PANTOprazole 40 MG TAB PO SCH ×2 (08:12→20:18)
[2020-09-03] MEDS: DOXYCYCLINE HYCLATE 100 MG CAP PO SCH ×2 (08:12→20:17)
[2020-09-03] MEDS: LOSARTAN POTASSIUM 25 MG TAB PO SCH (08:12)
[2020-09-03] MEDS: HYDROmorphone HCL 2 MG TAB PO PRN ×2 (08:13→20:16)
[2020-09-03] MEDS: ATENOLOL 50 MG TABLET PO SCH ×2 (08:13→20:18)
[2020-09-03] MEDS: SPIRONOLACTONE 25 MG TAB PO SCH (08:14)
[2020-09-03] MEDS: PREGABALIN 75 MG CAP PO SCH ×3 (08:14→20:16)
[2020-09-03] MEDS: dexAMETHasone 6 MG in SYRINGE 0 ML IV SCH (08:14)
[2020-09-03] MEDS: INSULIN ASPART 100 UNITS/ML 3 ML PEN SC SCH ×4 (08:29→21:04)
[2020-09-03] MEDS: INSULIN HUMAN NPH SC SCH (08:31)
[2020-09-03] MEDS ORDERED: INSULIN GLARGINE 100 UNIT/ML VIAL SC SCH ×3 (09:00→21:00)
[2020-09-03] MEDS: hydrOXYzine HCl 25 MG TAB PO PRN ×2 (09:38→20:30)
--- NOTE | 2020-09-03 11:27 | Pharmacy Report ---
Pharmacy Glycemic Short Note 2 - Date of Service September 03, 2020 - Glycemic Short BSG Results (Last 24 hours): 09/02/20 09/02/20 09/02/20 11:50 16:24 20:09 Glucose POC Glucose 81 136 H 147 H 09/03/20 09/03/20 09/03/20 05:54 08:05 08:07 Glucose 92 POC Glucose 55 L* 64 L* 09/03/20 08:27 Glucose POC Glucose 83 OUTPATIENT ANTIDIABETIC REGIMEN: * Metformin 1000 mg PO BIDM * Novolin-R Medtronic 630G Minimed Insulin Pump * Basal Rate: 5 units/hr (6531-8716) and 7 units/hr (7418-9247) {Total Daily Basal Dose = 152 units/day} * Utilizes set Bolus doses: 15 units w/ breakfast & lunch, 22 units w/ dinner, 10 units w/ chocolate milk snack before bed * For Snacks only: carb ratio of 1:3 * Has a correction factor of 1:5 but should not be using * Goal BSG range = 100-140 mg/dL * Average Total Daily Dose (from 08/20/20): 204 units/day * HbA1c = 9.1% (08/31/20) RISK FACTORS FOR INSULIN RESISTANCE: * Steroids: Dexamethasone 10 mg IV x 1 last evening * Dexamethasone 6 mg IV daily x 10 days * COVID Infection: Remdesivir + Ceftriaxone + Doxycycline * Diet: Full liquid ASSESSMENT: 09/03: * Patient received total of 214 units of insulin yesterday, BSGs much improved from day prior - of which 185 were basal * Appears PO intake decreasing yesterday. Fasting BSG low at 55 mg/dL, on recheck 83 mg/dL. Plan to decrease Lantus insulin ~40-50% today * Loosen CF/CR 09/02: * Pt has received 293 units of insulin over the past 24hrs * 140 units of basal with Lantus * 50 units of NPH for steroid induced hyperglycemia * 103 units of bolus with NovoLog * BSGs 48-501-382-175-251-76 mg/dl * BSGs all in goal range yesterday with the exception of HS BSG. Do not want to adjust CF/CR based off of just one BSG - if this continues to be a trend will tighten dinner time CR to prevent high at HS * AM fasting BSG is below goal range this AM at 76 mg/dl. Fasting BSG still trending downwards. Will decrease basal insulin with Lantus PLAN FOR INPATIENT GLYCEMIC CONTROL: * Hold outpatient oral diabetes medications * Basal insulin: decrease Lantus * Lantus 60 units Qam * Lantus 10-30 units Qpm * No change to NPH 50 units SQ daily - to be given with dexamethasone * Bolus insulin: no change * NovoLog per scale ACHS or Q6hrs while NPO * Goal Range: Low 110 mg/dL - High 140 mg/dL * Correction Factor: 12 mg/dL/unit * Nutritional / Prandial insulin per carb ratio of 1 unit per 3 grams CHO consumed PLAN FOR DISCHARGE: * HbA1c = 9.1% from 08/31/20. This has worsened from 7.9% in June 2020. Goal HbA1c for this patient would be < 7%. * Patient [facility] with [facility] as an outpatient for T2DM management. Her A1c from this admission aligns with pump data that was downloaded from 08/07- 08/20/20. Basal rates were recently adjusted at 08/20/20 visit. * Recommend continuing with current outpatient regimen upon discharge given recent change in basal rates. Patient should continue to follow with [facility].
[2020-09-03] MEDS ORDERED: DEXTROSE 50% 50 ML SYRINGE IV PRN (11:30)
[2020-09-03] MEDS ORDERED: CARBOHYDRATES FOR HYPOGLYCEMIA PO PRN (11:30)
[2020-09-03] MEDS ORDERED: GLUCAGON FOR INJ 1 MG VIAL IM PRN (11:30)
[2020-09-03] MEDS ORDERED: GLUCOSE 40% GEL 15 GM TUBE PO PRN (11:30)
[2020-09-03] MEDS ORDERED: GLUCOSE 10 TABS/TUBE PO PRN (11:30)
--- NOTE | 2020-09-03 12:27 | Electrocardiogram Report ---
Test Reason : Blood Pressure : / mmHG Vent. Rate : 059 BPM Atrial Rate : 059 BPM P-R Int : 126 ms QRS Dur : 080 ms QT Int : 406 ms P-R-T Axes : 047 000 044 degrees QTc Int : 401 ms Sinus bradycardia Nonspecific T wave abnormality Abnormal ECG When compared with ECG of 30-AUG-2020 22:05, Vent. rate has decreased BY 34 BPM Confirmed by Jh Nicholas ([id number]) on 09/03/2020 12:27:10 PM Referred By: REFERRED SELF Confirmed By:Jh Nicholas
[2020-09-03] MEDS: ENOXAPARIN INJ 40 MG/0.4 ML SYR SQ SCH (16:41)
[2020-09-03] MEDS: MAGNESIUM OXIDE 400 MG TAB PO SCH (16:42)
--- NOTE | 2020-09-03 17:33 | Hospitalist Progress Note ---
Date of Service September 03, 2020 Assessment & Plan (1) Acute hypoxemic respiratory failure: Acute respiratory failure with hypoxia COVID pneumonia CXR:Nonspecific right basilar opacities, atelectasis versus infectious/inflammatory. Clinical and radiographic follow-up is recommended COVID Screen:Positive on 08/30/20 Symptoms Onset about 2 weeks ago Troponin negative CRP:9.3 Ferritin:293 Procalcitonin:0.14 Continue Dexamethasone as per protocol Day # 4 Received 2 doses of Remdesivir, Patient would not like to complete entire course given her Cirrhosis history Isolation precautions--Airborne/Contact Consult Pulmonology/ID if needed Encourage frequent Proning Lasix, Nebs PRN DVT prophylaxis Lovenox Wean off of oxygen as able Requiring minimal supplemental oxygen to maintain saturation Continue current management Diarrhea Obtain stool for C. difficile if recurrent Improving DM II HbA1C:9.1 Uncontrolled blood glucose levels secondary to steroids Continue insulin therapy Glycemic pharmacy consulted Hypertension stable Continue losartan, atenolol NAFLD Cirrhosis Continue home diuretics Monitor Chronic thrombocytopenia secondary to cirrhosis No bleeding issues Monitor platelet count H/O Possible seizures stable Currently not on meds DVT Px: Lovenox SQ Monitor for Thrombocytopenia Code Status Full code Admission and Anticipated Discharge Date Admission Date: August 31, 2020 Subjective Patient is seen and examined at bedside Had an hypoglycemic episode this morning Shortness of breath, cough about the same as yesterday Reported chest pain overnight which currently resolved Denies any nausea, vomiting, abd pain, dizziness, dyspnea Review of Systems Review of Systems: As per HPI, all 10 systems reviewed, all other ROS negative Physical Exam Physical Exam: Physical Exam: Vitals signs as noted above General Appearance:Morbidly Obese, no apparent distress Head: normocephalic, Atraumatic Eyes: normal inspection, EOMI Neck: supple, Trachea midline Respiratory/Chest: Decreased breath sounds, Minimal basal crackles, No accessory muscle use Cardiovascular: S1, S2, No murmur Abdomen/GI:Soft, Non tender, Bowel sounds present Extremities/Musculoskelatal:normal inspection, no edema Neurologic/Psych:AAOX3, grossly no focal neurological deficits Skin: normal color, warm Results & Data Results & Data ([facility]) Vital Signs (Past 12 Hours) Vital Signs Temp Pulse Resp BP Pulse Ox 09/03/20 16:06 36.4 C L 60 19 121/70 93 09/03/20 12:01 36.4 C L 60 20 109/70 91 09/03/20 08:32 36.6 C 62 19 140/100 93 Laboratory Results Short CBC 09/03/20 Range/Units 05:54 WBC 8.33 (4.8-10.8) K/uL Hgb 13.2 (12.0-16.0) g/dL Hct 40.0 (37-47) % Plt Count 111 L (130-400) K/uL BMP 09/03/20 05:54 Sodium 139 Potassium 3.8 Chloride 106 Carbon Dioxide 31 BUN 22 H Creatinine 0.99 Glucose 92 Calcium 8.1 L Cardiac Enzymes 09/02/20 09/03/20 Range/Units 23:27 05:54 Troponin I < 0.015 < 0.015 (0-0.045) ng/ml
[2020-09-03] MEDS: traZODone HCL 100 MG TAB PO SCH (20:19)
[2020-09-03] MEDS: ESZOPICLONE 1 MG TAB PO SCH (20:29)
[2020-09-04] MEDS ORDERED: INSULIN ASPART 100 UNITS/ML 3 ML PEN SC SCH (02:00)
[2020-09-04] MEDS: cefTRIAXone SODIUM 2,000 MG in DEXTROSE 5% 50 ML IV SCH (03:22)
[2020-09-04 07:57] LABS: Hematocrit (blood only) 42.2 % (37-47); Hemoglobin 14.5 g/dL (12.0-16.0); Mean Corpuscular Hgb Conc 34.4 g/dL (32-36); Mean Corpuscular Volume 81.5 fL (80-100); Mean Platelet Volume 9.2 fL (7.4-10.4); Platelet Count 162 K/uL (130-400); RDW Coefficient of Variation 14.4 % (11.5-14.5); RDW Standard Deviation 43.6 fL (36.4-46.3); Red Blood Count 5.18 M/uL (4.2-5.4); White Blood Count 10.48 K/uL (4.8-10.8)
[2020-09-04] MEDS: dexAMETHasone 6 MG in SYRINGE 0 ML IV SCH (08:14)
[2020-09-04] MEDS: PANTOprazole 40 MG TAB PO SCH (08:16)
[2020-09-04] MEDS: DULoxetine HCL 60 MG CAP PO SCH (08:16)
[2020-09-04] MEDS: DOXYCYCLINE HYCLATE 100 MG CAP PO SCH (08:16)
[2020-09-04] MEDS: BACLOFEN 10 MG TAB PO SCH ×2 (08:16→14:05)
[2020-09-04] MEDS: SPIRONOLACTONE 25 MG TAB PO SCH (08:16)
[2020-09-04] MEDS: ATENOLOL 50 MG TABLET PO SCH (08:17)
[2020-09-04] MEDS: FUROSEMIDE 40 MG TAB PO SCH (08:17)
[2020-09-04] MEDS: LOSARTAN POTASSIUM 25 MG TAB PO SCH (08:17)
[2020-09-04] MEDS: POTASSIUM CHLORIDE 10 MEQ TABCR PO SCH (08:17)
[2020-09-04] MEDS: HYDROmorphone HCL 2 MG TAB PO PRN (08:21)
[2020-09-04] MEDS: ATORVASTATIN 40 MG TAB PO SCH (08:22)
[2020-09-04] MEDS: PREGABALIN 75 MG CAP PO SCH ×2 (08:22→14:05)
[2020-09-04 08:26] LABS: BUN Creatinine Ratio 20.5 (10-20); Calcium 8.4 mg/dl (8.5-10.1); Creatinine Clr Calc Pharmacy 80.4 ml/min; Est GFR (African American) 76.2; Est GFR (Non-African American) 65.8; Potassium 3.3 mmol/L (3.5-5.1)
[2020-09-04] MEDS ORDERED: POTASSIUM CHLORIDE CRTAB 20 MEQ TABCR PO ONE (08:32)
[2020-09-04] MEDS ORDERED: INSULIN GLARGINE 100 UNIT/ML VIAL SC SCH (09:00)
[2020-09-04] MEDS: hydrOXYzine HCl 25 MG TAB PO PRN (09:28)
[2020-09-04] MEDS: INSULIN ASPART 100 UNITS/ML 3 ML PEN SC SCH ×2 (09:35→13:21)
[2020-09-04] MEDS: INSULIN HUMAN NPH SC SCH (09:36)
[2020-09-04] MEDS: PROMETHAZINE HCL 12.5 MG in SODIUM CHLORIDE 0.9% 50 ML IV PRN (10:11)
--- NOTE | 2020-09-04 13:02 | Hospitalist Progress Note ---
Date of Service September 04, 2020 Assessment & Plan (1) Acute hypoxemic respiratory failure: Acute respiratory failure with hypoxia COVID pneumonia CXR:Nonspecific right basilar opacities, atelectasis versus infectious/inflammatory. Clinical and radiographic follow-up is recommended COVID Screen:Positive on 08/30/20 Symptoms Onset about 2 weeks ago Troponin negative CRP:9.3 Ferritin:293 Procalcitonin:0.14 Continue Dexamethasone as per protocol Day # 5 Received 2 doses of Remdesivir, Patient would not like to complete entire course given her Cirrhosis history Isolation precautions--Airborne/Contact Consult Pulmonology/ID if needed Encourage frequent Proning Lasix, Nebs PRN DVT prophylaxis Lovenox Saturating low 90s on room air 2 Step: Needs 2 liters of supplemental oxygen with activity Diarrhea Obtain stool for C. difficile if recurrent Resolved DM II HbA1C:9.1 Uncontrolled blood glucose levels secondary to steroids Continue insulin therapy Glycemic pharmacy consulted Hypertension stable Continue losartan, atenolol NAFLD Cirrhosis Continue home diuretics Monitor Chronic thrombocytopenia secondary to cirrhosis No bleeding issues Monitor platelet count H/O Possible seizures stable Currently not on meds DVT Px: Lovenox SQ Monitor for Thrombocytopenia Code Status Full code Admission and Anticipated Discharge Date Admission Date: August 31, 2020 Subjective Patient is seen and examined at bedside No new complaints Prefers to be discharged home today Cough continues to improve Denies any chest pain, dyspnea, nausea, vomiting, abd pain, dizziness Review of Systems Review of Systems: All systems reviewed & are unremarkable except as noted in HPI & below Physical Exam Physical Exam: Physical Exam: Vitals signs as noted above General Appearance:Morbidly Obese, no apparent distress Head: normocephalic, Atraumatic Eyes: normal inspection, EOMI Neck: supple, Trachea midline Respiratory/Chest: Decreased breath sounds, CTA, No accessory muscle use Cardiovascular: S1, S2, No murmur Abdomen/GI:Soft, Non tender, Bowel sounds present Extremities/Musculoskelatal:normal inspection, no edema Neurologic/Psych:AAOX3, grossly no focal neurological deficits Skin: normal color, warm Results & Data Results & Data ([facility]) Vital Signs (Past 12 Hours) Vital Signs Temp Pulse Pulse Resp BP BP Pulse Ox 09/04/20 11:27 36.8 C 66 20 116/84 93 09/04/20 07:31 36.3 C L 59 L 16 152/81 H 92 09/04/20 07:00 58 L 09/04/20 03:08 36.6 C 59 L 18 134/82 97 Laboratory Results Short CBC 09/04/20 Range/Units 07:32 WBC 10.48 (4.8-10.8) K/uL Hgb 14.5 (12.0-16.0) g/dL Hct 42.2 (37-47) % Plt Count 162 (130-400) K/uL BMP 09/04/20 07:32 Sodium 140 Potassium 3.3 L Chloride 107 Carbon Dioxide 28 BUN 21 H Creatinine 1.01 Glucose 62 L Calcium 8.4 L
--- NOTE | 2020-09-04 13:57 | Pharmacy Report ---
Pharmacy Glycemic Short Note 2 - Date of Service September 04, 2020 - Glycemic Short BSG Results (Last 24 hours): 09/03/20 09/03/20 09/04/20 16:40 20:32 01:59 Glucose POC Glucose 232 H 210 H 125 H 09/04/20 09/04/20 09/04/20 07:27 07:32 08:12 Glucose 62 L POC Glucose 63 L* 122 H 09/04/20 11:26 Glucose POC Glucose 78 OUTPATIENT ANTIDIABETIC REGIMEN: * Metformin 1000 mg PO BIDM * Novolin-R Medtronic 630G Minimed Insulin Pump * Basal Rate: 5 units/hr (0176-2480) and 7 units/hr (7718-7047) {Total Daily Basal Dose = 152 units/day} * Utilizes set Bolus doses: 15 units w/ breakfast & lunch, 22 units w/ dinner, 10 units w/ chocolate milk snack before bed * For Snacks only: carb ratio of 1:3 * Has a correction factor of 1:5 but should not be using * Goal BSG range = 100-140 mg/dL * Average Total Daily Dose (from 08/20/20): 204 units/day * HbA1c = 9.1% (08/31/20) RISK FACTORS FOR INSULIN RESISTANCE: * Steroids: Dexamethasone 10 mg IV x 1 last evening * Dexamethasone 6 mg IV daily x 10 days * COVID Infection: Remdesivir + Ceftriaxone + Doxycycline * Diet: Full liquid ASSESSMENT: 09/04: * Patient received total of 171 units of insulin yesterday, of which 130 were basal * Fasting BSG slightly under goal at 63 mg/dL, on recheck 112 mg/dL. Will eliminate evening Lantus to hopefully avoid lower BSGs in AM * Lunch BSG trending down at 78 mg/dL - plan to loosen CR 09/03: * Patient received total of 214 units of insulin yesterday, BSGs much improved from day prior - of which 185 were basal * Appears PO intake decreasing yesterday. Fasting BSG low at 55 mg/dL, on recheck 83 mg/dL. Plan to decrease Lantus insulin ~40-50% today * Loosen CF/CR PLAN FOR INPATIENT GLYCEMIC CONTROL: * Hold outpatient oral diabetes medications * Basal insulin: decrease Lantus * Lantus 40 units Qam * No change to NPH 50 units SQ daily - to be given with dexamethasone * Bolus insulin: no change * NovoLog per scale ACHS or Q6hrs while NPO * Goal Range: Low 110 mg/dL - High 140 mg/dL * Correction Factor: 12 mg/dL/unit * Nutritional / Prandial insulin per carb ratio of 1 unit per 3 grams CHO consumed PLAN FOR DISCHARGE: * HbA1c = 9.1% from 08/31/20. This has worsened from 7.9% in June 2020. Goal HbA1c for this patient would be < 7%. * Patient [facility] as an outpatient for T2DM management. Her A1c from this admission aligns with pump data that was downloaded from 08/07- 08/20/20. Basal rates were recently adjusted at 08/20/20 visit. * Recommend continuing with current outpatient regimen upon discharge given recent change in basal rates. Patient should continue to follow with [facility].
--- NOTE | 2020-09-04 14:16 | Discharge Summary ---
Date of Service September 04, 2020 Admission HPI Per Admitting Provider History obtained from patient and records. Medical history significant for seizure disorder, hypertension, hyperlipidemia, past hx of CVA, chronic left hemiparesis as per records, NAFLD cirrhosis, liver lesions (possible malignancy as per patient), DM2 on insulin pump, chronic pain as per records, mood disorder, chronic thrombocytopenia, possible seizures as per records, DONNA on CPAP. Last confinement April 2019 for breakthrough seizures. Patient transferred to [facility] for further evaluation. 2 weeks ago patient noted worsening body aches and flulike symptoms. COVID-19 contacts at home. Outpatient COVID-19 test from 2 weeks ago was negative. Patient noted cough symptoms productive of junky sputum with chest tightness from coughing and worsening shortness of breath in the last week. Denies aspiration. At the ER, O2 sats noted to be 80s. IV Decadron given at the ER. Medical History as above Surgical History : Hysteroscopy, vascular procedure, BTL Family History : COPD, diabetes, liver disease, heart disease Personal/Social history : Non-smoker, no EtOH intake, disabled Admission Exam Per Admitting Provider Physical Exam Physical Exam: GENERAL: Comfortable, morbidly obese, slightly anxious, no respiratory distress SKIN: Normal color, warm HEENT: Bespectacled, [place] palpebral conjunctivae, no ptosis, dry buccal mucosa, nasal cannula in place NECK : Supple, short neck, no tenderness CHEST : Decreased breath sounds , no tenderness HEART : RRR, no obvious murmurs ABDOMEN: Some distention, nontender EXTREMITIES : Minimal LE swelling, no LE tenderness, no other conspicuous deformities noted NEUROLOGIC : Coherent, no facial asymmetry, gait and stance not assessed Principal Diagnosis Acute respiratory failure with hypoxia COVID pneumonia Discharge Data Allergies Allergy/AdvReac Type Severity Reaction Status Date / Time naproxen Allergy Unknown BLEEDING Verified 08/31/20 00:11 Consultations 08/30/20 23:55 ED Decision to Admit Stat Procedures Performed CXR:Nonspecific right basilar opacities, atelectasis versus infectious/inflammatory. Clinical and radiographic follow-up is recommended Ordered Studies 09/02/20 23:11 CT angio chest PE protocol Urgent Hospital Course (1) Acute hypoxemic respiratory failure: Acute respiratory failure with hypoxia COVID pneumonia CXR:Nonspecific right basilar opacities, atelectasis versus infectious/inflammatory. Clinical and radiographic follow-up is recommended COVID Screen:Positive on 08/30/20 Symptoms Onset about 2 weeks ago Troponin negative CRP:9.3 Ferritin:293 Procalcitonin:0.14 Continue Dexamethasone as per protocol Day # 5 Received 2 doses of Remdesivir, Patient would not like to complete entire course given her Cirrhosis history Isolation precautions--Airborne/Contact Consult Pulmonology/ID if needed Encourage frequent Proning Lasix, Nebs PRN DVT prophylaxis Lovenox Saturating low 90s on room air 2 Step: Needs 2 liters of supplemental oxygen with activity Diarrhea Obtain stool for C. difficile if recurrent Resolved DM II HbA1C:9.1 Uncontrolled blood glucose levels secondary to steroids Continue insulin therapy Glycemic pharmacy consulted Hypertension stable Continue losartan, atenolol NAFLD Cirrhosis Continue home diuretics Monitor Chronic thrombocytopenia secondary to cirrhosis No bleeding issues Monitor platelet count H/O Possible seizures stable Currently not on meds DVT Px: Lovenox SQ Monitor for Thrombocytopenia Code Status Full code Total Time Total Time Spent Total Time Spent (In Minutes): 39 minutes Total Time Includes: Examination of the Patient, Discharge Planning, Medication Reconciliation, Communication With Other Providers and Other Discharge Plan Discharge Items Patient Disposition: Home - Self-Care Reason For Visit: RESP FAILURE Discharge Diagnosis: Acute respiratory failure with hypoxia COVID pneumonia Activity: Per Instructions section Exercise/Sports: Gradually increase as tolerated Non-emergency contact: Primary Care Provider Call non-emergency contact if: you have any medication questions, your symptoms worsen, your pain is not controlled, your pain is concerning for you and you have a fever Follow-up/Referrals: Scott Weldon MD [Primary Care Provider] - (Date & Time 09/10/2020 10:40 AM Provider Scott Weldon MD Department Family Practice [facility] PLEASE NOTE THAT THIS IS A TELEVIDEO APPOINTMENT. PLEASE FOLLOW THE INSTRUCTIONS PROVIDED IN YOUR EMAIL. IF YOU HAVE ANY QUESTIONS REGARDING THIS APPOINTMENT, PLEASE CALL ) Diet: Carb Consistent or DM2 and Heart Healthy Addtl Attending Provider Instructions: Follow up with your Primary Care Physician on 09/10/2020 10:40 AM Use 2 L of supplemental oxygen via nasal cannula with activity as advised. Seek immediate medical attention if your symptoms reoccur or worsen Home Isolation COVID-19 Instructions The following information about Home Isolation is from the CDC Website: https://www.cdc.gov/coronavirus/2019-ncov/hcp/hhtzxdbq-vhbhzvu-jtvyar.html Stay home except to get medical care People who are mildly ill with COVID-19 are able to isolate at home during their illness. You should restrict activities outside your home, except for getting medical care. Do not go to work, school, or public areas. Avoid using public transportation, ride-sharing, or taxis. Separate yourself from other people and animals in your home People: As much as possible, you should stay in a specific room and away from other people in your home. Also, you should use a separate bathroom, if available. Animals: You should restrict contact with pets and other animals while you are sick with COVID-19, just like you would around other people. Although there have not been reports of pets or other animals becoming sick with COVID-19, it is still recommended that people sick with COVID-19 limit contact with animals until more information is known about the virus. When possible, have another member of your household care for your animals while you are sick. If you are sick with COVID-19, avoid contact with your pet, including petting, snuggling, being kissed or licked, and sharing food. If you must care for your pet or be around animals while you are sick, wash your hands before and after you interact with pets and wear a face mask. Call ahead before visiting your doctor If you have a medical appointment, call the healthcare provider and tell them that you have or may have COVID-19. This will help the healthcare providers office take steps to keep other people from getting infected or exposed. Wear a face mask You should wear a face mask when you are around other people (e.g., sharing a room or vehicle) or pets and before you enter a healthcare providers office. If you are not able to wear a face mask (for example, because it causes trouble breathing), then people who live with you should not stay in the same room with you, or they should wear a face mask if they enter your room. Cover your coughs and sneezes Cover your mouth and nose with a tissue when you cough or sneeze. Throw used tissues in a lined trash can. Immediately wash your hands with soap and water for at least 20 seconds or, if soap and water are not available, clean your hands with an alcohol-based hand technical services representative that contains at least 60% alcohol. Clean your hands often Wash your hands often with soap and water for at least 20 seconds, especially after blowing your nose, coughing, or sneezing; going to the bathroom; and before eating or preparing food. If soap and water are not readily available, use an alcohol-based hand technical services representative with at least 60% alcohol, covering all surfaces of your hands and rubbing them together until they feel dry. Soap and water are the best option if hands are visibly dirty. Avoid touching your eyes, nose, and mouth with unwashed hands. Avoid sharing personal household items You should not share dishes, drinking glasses, cups, eating utensils, towels, or bedding with other people or pets in your home. After using these items, they should be washed thoroughly with soap and water. Clean all high-touch surfaces everyday High touch surfaces include counters, tabletops, doorknobs, bathroom fixtures, toilets, phones, keyboards, tablets, and bedside tables. Also, clean any surfaces that may have blood, stool, or body fluids on them. Use a household cleaning spray or wipe, according to the label instructions. Labels contain instructions for safe and effective use of the cleaning product including precautions you should take when applying the product, such as wearing gloves and making sure you have good ventilation during use of the product. Monitor your symptoms Seek prompt medical attention if your illness is worsening (e.g., difficulty breathing).Beforeseeking care, call your healthcare provider and tell them that you have, or are being evaluated for, COVID-19. Put on a face mask before you enter the facility. These steps will help the healthcare providers office to keep other people in the office or waiting room from getting infected or exposed. Ask your healthcare provider to call the local or state health department. Persons who are placed under active monitoring or facilitated self- monitoring should follow instructions provided by their local health department or occupational health professionals, as appropriate. When working with your local health department check their available hours. If you have a medical emergency and need to call 911, notify the dispatch personnel that you have, or are being evaluated for COVID-19. If possible, put on a face mask before emergency medical services arrive. Discontinuing home isolation Patients with confirmed COVID-19 should remain under home isolation precautions until the risk of secondary transmission to others is thought to be low. The decision to discontinue home isolation precautions should be made on a [id number] basis, in consultation with healthcare providers and state and local health departments. Coronavirus disease 2019 (COVID-19) is a virus that causes a respiratory illness. It is caused by a coronavirus called 2019 novel coronavirus (2019- nCoV). There are many types of coronavirus. Coronaviruses are a very common cause of bronchitis. They may sometimes cause lung infection(pneumonia). Symptoms can range from mild to severe respiratory illness. These viruses are also foundin some animals. COVID-19 was first found in people in [facility], in late 2019. In 2020, several cases of COVID-19 have been confirmed in the [place] Public health officials are working to find the source. How the virus spreads is not yet fully known. It may be spread through droplets of fluid that a person coughs or sneezes into the air. It may be spread if you touch a surface with virus on it, such as a handle or object, and then touch your mouth. What are the symptoms of COVID-19? Some people have no symptoms or mild symptoms. Symptoms may appear 2 to 14 days after contact with the virus. Symptoms can include: Fever Coughing Trouble breathing What are possible complications from COVID-19? In many cases, this virus can cause infection (pneumonia) in both lungs. In some cases, this can cause . How is COVID-19 diagnosed? Your healthcare provider will ask about your symptoms. He or she will also ask about your recent travel and contact with sick people. Testing for the virus is only done through the CDC. If yourhealthcare provider thinks you may have COVID- 19, he or she will work with your local health department and the CDC on testing. Follow all instructions from your healthcare provider. COVID-19 is diagnosed by: Nasal and throat swab. A cotton-tipped swab is wiped inside your nose or throat. This is done to check for viruses in your nasal mucus. Sputum culture. A small sample of mucus coughed from your lungs (sputum) is collected if you have a cough. It is checked for the virus. How is COVID-19 treated? There is currently no medicine to treat the virus. Treatment is done to help your body while it fights the virus. This is known as supportive care. Supportive care may include: Pain medicine. These include acetaminophen and ibuprofen. They are used to help ease pain and reduce fever. Bed rest. This helps your body fight the illness. For severe illness, you may need to stay in the hospital. Care during severe illness may include: IV (intravenous) fluids.These are given through a vein to help keep your body hydrated. Oxygen. Supplemental oxygen or ventilation with a breathing machine (ventilator) may be given. This is done to keep enough oxygen in your body. Are you at risk for COVID-19? If youve been to a place where people have been sick with this virus, you are at risk for infection. You are at risk if you: Recently traveled to an affected area Had contact with a sick person who recently traveled to this area Had contact with a person who was diagnosed with COVID-19 How can COVID-19 be prevented? There is no vaccine yet. The best prevention is to not have contact with the virus. The CDC advises that people should not travel to areas where there are COVID-19 outbreaks right now for any reason that is not urgent. To help prevent spreading the infection, wash your hands often, or use an alcohol-basedhand technical services representative. If you are in an area with COVID-19: Wash your hands often. Or use an alcohol-based hand technical services representative often. Only touch your eyes, nose, or mouth with clean hands. Dont have contact with people who are sick. Follow local instructions about being in public. For example, you may be told to not use public transport for a period of time. Stay away from markets that have live or animals. Wash your hands after touching any animals. Don't touch animals that may be sick. Dont share eating or drinking tools with sick people. Dont kiss someone who is sick. Clean surfaces often with disinfectant. If you were in an area with COVID-19 in the last 14 days: Call your healthcare provider. He or she can talk with local health staff to see what action may be needed. Follow all instructions from your provider. Take your temperature every morning and evening for at least 14 days. This is to check for fever. Keep a record of the readings. Keep watch for symptoms of the virus. Tell your provider right away if you have symptoms. If you were in an area with COVID-19 and have a fever or other symptoms: Dont panic. Keep in mind that other illnesses can cause similar symptoms. Stay away from work, school, and public places. Limit physical contact with family members. Don't kiss anyone or share eating or drinking utensils. Clean surfaces you touch with disinfectant. This is to help prevent the virus from spreading. Call your healthcare provider. Explain that you have been exposed to COVID-19 and have symptoms. Do this before going to any hospital. Wait for instructions. Keep in mind that healthcare staff may wear protective equipment such as masks, gowns, gloves, and eye protection. You may be put in a separate room. This is to prevent the possible virus from spreading. Tell the healthcare staff about recent travel. This includes local travel on public transport. Staff may need to find other people you have been in contact with. Follow all instructions the healthcare staff give you. If you have been diagnosed with COVID-19 Follow all instructions from your healthcare provider. Dont leave your home, except to get medical care. Call your healthcare providers office before going. They can prepare and give you instructions. This will help prevent the virus from spreading. Dont go to work, school, or public areas. Dont use public transport or taxis. Stay away from other people in your home. Have them wear face masks around you. Dont share household items or food. Wear a face mask if you can. This includes at home or in a medical facility. Cover your face with a tissue when you cough or sneeze. Throw the tissue away. Wash your hands. Wash your hands often. Caregivers should: Follow all instructions from healthcare staff. Wear a face mask and protective clothing as advised. Wash hands often. Keep track of the sick persons symptoms. Clean surfaces, fabrics, and laundry thoroughly. Keep other people away from the sick person. When to call your healthcare provider Call your healthcare provider: If youve recently traveled and have symptoms If you have been diagnosed with COVID-19 and your symptoms are worse To learn more To find out more about COVID-19, visit the CDC website at www.cdc.gov/coronavirus/2019-ncov/index.html. [employer]. [address] [place] [address], [place] [address]. All rights reserved. This information is not intended as a substitute for professional medical care. Always follow your healthcare professional's instructions. This information has been adapted from [employer] Pending Studies at Discharge: No Stand-Alone Forms: My [facility], Smoking Cessation Medications and DC Order Prescriptions: Continued furosemide [Lasix] 40 mg tablet 40 mg PO QAM RF: 0 atorvastatin [Lipitor] 40 mg tablet 40 mg PO QAM RF: 0 atenolol 100 mg Tablet 100 mg PO BID RF: 0 potassium chloride 10 mEq Tablet Extended Release 10 meq PO BID RF: 0 magnesium oxide [MagOx] 400 mg (241.3 mg magnesium) tablet 400 mg PO QAM RF: 0 metoclopramide HCl [Reglan] 5 mg Tablet 5 mg PO AC PRN (Reason: Nausea) RF: 0 trazodone 100 mg tablet 200 mg PO HS RF: 0 dicyclomine 20 mg tablet 20 mg PO BID PRN (Reason: PAIN/CRAMPING) RF: 0 meclizine 25 mg Tablet 25 mg PO TID PRN (Reason: DIZZYNESS) RF: 0 metformin [Glucophage] 1,000 mg tablet 1,000 mg PO BIDM RF: 0 losartan [Cozaar] 25 mg tablet 25 mg PO QAM RF: 0 omeprazole 20 mg capsule,delayed release(DR/EC) 20 mg PO BID RF: 0 loratadine [Claritin] 10 mg Tablet 10 mg PO DAILY PRN (Reason: Allergy Symptoms) RF: 0 spironolactone [Aldactone] 50 mg tablet 50 mg PO QAM RF: 0 Novolin R Regular U-100 Insuln 100 unit/mL solution 0 unit continuous subcutaneous infusion DIRECTED RF: 0 hydroxyzine HCl 25 mg tablet 50 mg PO Q6H PRN (Reason: Anxiety) RF: 0 baclofen 10 mg tablet 10 mg PO TID RF: 0 duloxetine 60 mg capsule,delayed release(DR/EC) 60 mg PO QAM RF: 0 eszopiclone 1 mg tablet 1 mg PO HS RF: 0 pregabalin 75 mg capsule 75 mg PO TID RF: 0 ondansetron HCl 8 mg tablet 8 mg PO Q8 PRN (Reason: Nausea And Vomiting) RF: 0 hydromorphone 4 mg tablet 4 mg PO BID PRN (Reason: Pain) RF: 0 Discharge Orders: Discharge Order (Routine); Ordered 09/04/20 Ordered By: Blake Natarajan Admission Data Admit Date/Time: 08/31/20 00:49 Attending Provider: Blake Natarajan Admit Provider: Jaun Latham Primary Care Provider: Scott Weldon Other Providers: Jaun Latham Other Interventions: Discharge Summary Assessment (RN) Last Done: 09/04/20 15:37
== END 2020-09-04 16:55 | disposition home or self-care (01) | DRG 177 ==
LOC: ED 20:54 → 2S 08-31 00:49

== ENCOUNTER 2023-08-11 18:19 | Inpatient (IN) ==
[2023-08-11] MEDS ORDERED: SODIUM CHLORIDE 0.9% 250 ML IV PRN (18:36)
--- NOTE | 2023-08-11 18:36 | ED Triage Note ---
Date of Service August 11, 2023 Provider in Triage Author: Elina Valdez History of Present Illness This patient was briefly evaluated while in triage. An abbreviated physical exam was performed. This patient is a 53-year-old Female who presents to the ED for evaluation of rectal bleeding x 2 weeks. She has had vomiting twice today with small amounts of blood. She has a history of cirrhosis and esophageal varices. She denies any history of these symptoms. Physical Exam GENERAL: Non-toxic and in no acute distress. HEENT: Pupils equal. No obvious scleral icterus. HEART: Regular rate and rhythm. LUNGS: Clear to auscultation. No accessory muscle use. ABDOMEN: Soft, mild epigastric tenderness to palpation. NEURO: Alert and oriented. No obvious neurological deficits on quick neuro exam. Initial orders for labs and / or imaging were placed and patient was placed in the waiting area until a bed is available. Please see further documentation for the full ED course.
[2023-08-11 19:17] LABS: Albumin Globulin Ratio 1.2 (0.9-2); Bilirubin,Total 0.5 mg/dl (0.2-1.0); Calcium 8.8 mg/dl (8.6-10.3); Creatinine Clr Calc Pharmacy 68.3 ml/min; Est GFR (African American) 62.5 ml/min; Est GFR (Non-African American) 53.9 ml/min; Globulin 3.4 gm/dl (2.5-4.0); Potassium 4.1 mmol/L (3.5-5.1); Total Protein 7.4 gm/dl (6.0-8.3)
[2023-08-11 19:20] LABS: Basophils # (auto) 0.05 K/uL (0.00-0.20); Basophils % (auto) 0.7 %; Eosinophils # (auto) 0.23 K/uL (0.00-0.50); Eosinophils % (auto) 3.4 %; Hematocrit (blood only) 38.3 % (37.0-47.0); Hemoglobin 12.2 g/dl (12.0-16.0); Immature Granulocytes # (auto) 0.02 K/uL (0.01-0.20); Immature Granulocytes % (auto) 0.3 %; Lymphocytes # (auto) 1.63 K/uL (1.20-3.40); Lymphocytes % (auto) 23.9 %; Mean Corpuscular Hgb Conc 31.9 g/dL (32.0-36.0); Mean Corpuscular Volume 87.8 fL (80.0-100.0); Mean Platelet Volume 9.8 fL (9.4-12.4); Monocytes # (auto) 0.52 K/uL (0.11-0.59); Monocytes % (auto) 7.6 %; Neutrophils # (auto) 4.38 K/uL (1.40-6.50); Neutrophils % (auto) 64.1 %; Platelet Count 98 K/uL (130-400); Platelet Estimate Decreased (Normal); RDW Coefficient of Variation 14.3 % (11.5-14.5); RDW Standard Deviation 45.7 fL (36.4-46.3); Red Blood Count 4.36 M/uL (4.20-5.40); White Blood Count 6.83 K/ul (4.8-10.8)
[2023-08-11 19:31] LABS: INR 1.1 (0.9-1.1); Partial Thromboplastin Ratio 0.9; Partial Thromboplastin Time 25 Seconds (21-31); Prothrombin Time 11.9 Seconds (9.0-12.0)
--- NOTE | 2023-08-11 19:55 | Emergency Department Note ---
Impression & Plan Abdominal pain, Bright red rectal bleeding, Hematemesis ED Provider Note ED Provider Note NAME: JUDY CLAYTON AGE:53 SEX: Female : 1970 ARRIVES VIA: EMS INFORMANT: Patient ED PROVIDER(s): Falguni Landers DO CHIEF COMPLAINT: Abdominal pain HPI: This is a 53-year-old female who presents emergency room due to concern for abdominal pain. Patient also complains of rectal bleeding and vomiting blood. She states 2 weeks ago she began noticing bright red blood per rectum every time she had a bowel movement. She states she has had this previously. She did not notice any pain or discomfort at that time. She states left-sided abdominal pain started yesterday, initially more inferiorly and then seem to come up under her left rib and in her left flank. She states no pain with position or exertion, however pain is constant and worsening. Patient does already take pain medication at home. Patient states today she had 2 episodes of vomiting and noticed bright red blood in her emesis as well. She denies fevers or chills. She states she does feel bloated. 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 She does not use any antiplatelet or anticoagulation medication. Patient does still take omeprazole daily. She states that her colonoscopy is scheduled with Dr. Pruett in September. PAST MEDICAL HISTORY:See Below PAST SURGICAL HISTORY:See Below FAMILY HISTORY:See Below SOCIAL HISTORY:See Below HOME MEDICATIONS:See Below ALLERGIES:See Below VITALS:See Below PHYSICAL EXAMINATION: GENERAL: alert, well appearing, well nourished, no distress, non-toxic EYE EXAM: normal conjunctiva, PERRL and EOM's grossly intact OROPHARYNX: no exudate, no erythema, lips, buccal mucosa, and tongue normal and mucous membranes are moist NECK: supple, no nuchal rigidity, no adenopathy, non-tender LUNGS: Clear to auscultation. Normal chest wall mechanics, no w/r/r HEART: no murmurs, S1 normal and S2 normal ABDOMEN: abdomen soft, left-sided abdominal pain, normo-active bowel sounds, no masses, no rebound or guarding. BACK: Back is symmetrical on inspection and there is no deformity, no midline tenderness, no CVA tenderness. SKIN: no rashes, petechiae, orbruising UPPER EXTREMITIES: upper extremities are grossly normal. FROM, nml pulses b/l. LOWER EXTREMITIES: No pitting edema. FROM, nml pulses b/l. NEURO EXAM: Normal sensorium, cranial nerves II-XII grossly intact, normal speech, no facial droop,nogross weakness of arms, no gross weakness of legs. Gross sensation intact. No ataxia. Vital Signs: reviewed and remarkable Differential Diagnosis: diverticulosis, AVM, coagulopathy, colitis, inflammatory bowel disease, malignancy, Denia-[place] tear, esophagitis, peptic ulcer disease, variceal bleed, gastritis, epistaxis, fissure, hemorrhoids, as well as others were entertained. MEDICAL DECISION MAKING: This is a 53-year-old female who presents emergency department due to concern for GI bleed. Patient was afebrile vital signs stable. Labs drawn and sent, IV established, and patient monitored on telemetry. Patient started on IV fluids and given initially IV Protonix bolus. She was given IV Dilaudid additionally for pain. Patient sent for CT of the abdomen and pelvis additionally. Due to concern for accompanying hematemesis in addition to 2 weeks of rectal bleeding as well as increased pain, we discussed additional inpatient management. She remained hemodynamically stable throughout. After additional discussion, Protonix bolus and drip added and case discussed with hospitalist team for additional evaluation and management. Consultation(s): 2300: Discussed with Dr. Bradford, [facility] hospitalist team, for additional evaluation. ER Treatment Provided: See below Diagnostics Interpreted By Me: -Cardiac Monitoring: An order was placed for continuous cardiac monitoring. The monitor shows a rate of 82 with normal sinus rhythm. -Laboratory studies: As stated above and show below. Triage Nursing Note Reviewed Prior/Outside Records Reviewed Critical Care: Critical care of 40 min performed to assess and manage high likelihood of life- threatening Gi bleed, involving labs and imaging performed with assessment to evaluate gi bleed diagnosis with frequent reassessment. This time includes bedside time, treatment discussions with patient/family/consultants, documentation time and excludes procedure time. 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 Back pain Surgical History History of tubal ligation History of hysterectomy Family History Other No significant family history Social History Smoking Status: Never smoker Second Hand Exposure: No; Do You Dip or Chew Tobacco: No; Hx Alcohol Use: No Hx Substance Use: No Preferred Language: Romansh Communication Ability: Effective Heel Shaver Required: No Beliefs That Will Affect Care: None Current Living Situation: Spouse Current Living Situation Comment: and a son Other Information That Helps Us Care for You: No Feels Safe at Home: Yes Safety Concerns: Feels Safe At This Time Assistive Devices: None Allergies Allergies Allergy/AdvReac Type Severity Reaction Status Date / Time naproxen Allergy Unknown BLEEDING Verified 08/11/23 20:32 Home Meds Home Medications Medication Instructions Recorded Confirmed albuterol sulfate 90 mcg/actuation 2 puff inhalation Q6 PRN Shortness 08/11/23 08/11/23 aerosol inhaler Of Breath Or Wheezing atenolol 100 mg tablet 100 mg PO BID 08/11/23 08/11/23 atorvastatin 40 mg tablet 40 mg PO DAILYBL 08/11/23 08/11/23 baclofen 10 mg tablet 10 mg PO TID 08/11/23 08/11/23 buprenorphine 5 mcg/hour weekly 1 patch topical WK 08/11/23 08/11/23 transdermal patch dicyclomine 20 mg tablet 20 mg PO HS 08/11/23 08/11/23 escitalopram oxalate 20 mg tablet 20 mg PO DAILY 08/11/23 08/11/23 eszopiclone 2 mg tablet 2 mg PO HS 08/11/23 08/11/23 furosemide 40 mg tablet 40 mg PO QAM 08/11/23 08/11/23 hydroxyzine HCl 25 mg tablet 25 mg PO TID 08/11/23 08/11/23 insulin regular human 100 unit/mL 0 unit continuous subcutaneous 08/11/23 08/11/23 injection solution (Novolin R infusion DIRECTED Regular U-100 Insulin) loratadine 10 mg tablet 10 mg PO QAM 08/11/23 08/11/23 losartan 25 mg tablet 25 mg PO HS 08/11/23 08/11/23 magnesium oxide 400 mg PO DAILY 08/11/23 08/11/23 meclizine 25 mg tablet 25 mg PO TID PRN .dizzy 08/11/23 08/11/23 metformin 1,000 mg tablet 1,000 mg PO BIDM 08/11/23 08/11/23 metoclopramide HCl 5 mg tablet 5 mg PO AC PRN Nausea 08/11/23 08/11/23 naloxone 4 mg/actuation nasal spray 4 mg intranasal DIRECTED PRN 08/11/23 08/11/23 opiod od omeprazole 20 mg capsule,delayed 20 mg PO BID 08/11/23 08/11/23 release ondansetron 8 mg disintegrating 8 mg translingual Q8 PRN Nausea 08/11/23 08/11/23 tablet potassium chloride 10 mEq 10 meq PO BID 08/11/23 08/11/23 tablet,extended release pregabalin 100 mg capsule 100 mg PO TID 08/11/23 08/11/23 semaglutide 2 mg/dose (8 mg/3 mL) 2 mg subcut .WEEKLY 08/11/23 08/11/23 subcutaneous pen injector (Ozempic) spironolactone 50 mg tablet 50 mg PO QAM 08/11/23 08/11/23 trazodone 100 mg tablet 100 - 200 mg PO HS 08/11/23 08/11/23 Results & Data (ED) Vital Signs Vital Signs - 24 hr 08/11/23 18:33 08/11/23 19:07 08/11/23 19:58 Temperature 36.5 C Temperature Source Temporal Artery Scan Pulse Rate 84 83 Pulse Rate [Apical] 82 Pulse Rhythm Regular Pulse Rhythm [Apical] Regular Pulse Strength [Apical] Normal Respiratory Rate 20 17 Respiratory Effort / Characteristics Non-Labored Spontaneous Non-Labored Spontaneous Respiratory Depth Normal Normal Respiratory Pattern Regular Blood Pressure 107/72 Blood Pressure [Right Arm] 130/77 Blood Pressure Mean 83 Blood Pressure Mean [Right Arm] 94 Blood Pressure Position [Right Arm] Semi-fowlers Pulse Oximetry 97 93 Oxygen Delivery Method Room Air Room Air Sepsis Recent Fever Within 48 Hours No Sepsis New/Unexplained Change in Mental Status No Sepsis Action Taken by Nursing No Action Required 08/11/23 20:57 08/11/23 23:00 Temperature Temperature Source Pulse Rate 73 Pulse Rate [Apical] 80 Pulse Rhythm Pulse Rhythm [Apical] Pulse Strength [Apical] Respiratory Rate 18 Respiratory Effort / Characteristics Non-Labored Respiratory Depth Normal Respiratory Pattern Blood Pressure Blood Pressure [Right Arm] 129/81 Blood Pressure Mean Blood Pressure Mean [Right Arm] 97 Blood Pressure Position [Right Arm] Pulse Oximetry 97 Oxygen Delivery Method Room Air Sepsis Recent Fever Within 48 Hours Sepsis New/Unexplained Change in Mental Status Sepsis Action Taken by Nursing Laboratory Data 08/12/23 23:00 08/12/23 06:07 Lab Results 08/11/23 08/11/23 Range/Units 18:41 21:35 WBC 6.83 (4.8-10.8) K/ul RBC 4.36 (4.20-5.40) M/uL Hgb 12.2 (12.0-16.0) g/dl Hct 38.3 (37.0-47.0) % MCV 87.8 (80.0-100.0) fL MCH 28.0 (25.0-34.0) pg MCHC 31.9 L (32.0-36.0) g/dL RDW Std Deviation 45.7 (36.4-46.3) fL RDW Coeff of Bailey 14.3 (11.5-14.5) % Plt Count 98 L (130-400) K/uL MPV 9.8 (9.4-12.4) fL Immature Gran % (Auto) 0.3 % Neut % (Auto) 64.1 % Lymph % (Auto) 23.9 % Phillips % (Auto) 7.6 % Eos % (Auto) 3.4 % Baso % (Auto) 0.7 % Neut # (Auto) 4.38 (1.40-6.50) K/uL Lymph # (Auto) 1.63 (1.20-3.40) K/uL Phillips # (Auto) 0.52 (0.11-0.59) K/uL Eos # (Auto) 0.23 (0.00-0.50) K/uL Baso # (Auto) 0.05 (0.00-0.20) K/uL Immature Gran # (Auto) 0.02 (0.01-0.20) K/uL Platelet Estimate Decreased L (Normal) PT 11.9 (9.0-12.0) Seconds INR 1.1 (0.9-1.1) APTT 25 (21-31) Seconds PTT Ratio 0.9 Sodium 141 (136-145) mmol/L Potassium 4.1 (3.5-5.1) mmol/L Chloride 103 (98-107) mmol/L Carbon Dioxide 33 H (21-32) mmol/L Anion Gap 5 (3-11) BUN 14 (6-23) mg/dl Creatinine 1.17 (0.6-1.2) mg/dl Est Cr Clr Drug Dosing 68.3 ml/min Est GFR ( Amer) 62.5 ml/min Est GFR (Non-Af Amer) 53.9 ml/min BUN/Creatinine Ratio 12.0 (10-20) Glucose 70 (70-99(Fasting)) mg/dl POC Glucose 134 H (70-99) mg/dl Calcium 8.8 (8.6-10.3) mg/dl Phosphorus 3.4 (2.5-4.9) mg/dl Total Bilirubin 0.5 (0.2-1.0) mg/dl AST 32 (13-39) U/L ALT 12 (7-52) U/L Alkaline Phosphatase 118 H (34-104) U/L Total Protein 7.4 (6.0-8.3) gm/dl Albumin 4.0 (3.4-5.0) gm/dl Globulin 3.4 (2.5-4.0) gm/dl Albumin/Globulin Ratio 1.2 (0.9-2) Blood Type A Negative Antibody Screen NEGATIVE Crossmatch See Detail Administered Medications Atenolol (Atenolol 50 Mg Tablet) 100 mg PO BID MARCIA Stop: 09/11/23 08:59 Last Admin: 08/12/23 21:27 Dose: 100 mg Documented By: Admin: 08/12/23 09:44 Dose: 100 mg Documented By: JILL Atorvastatin Calcium (Atorvastatin 40 Mg Tab) 40 mg PO DAILYBL [facility] Stop: 09/11/23 10:29 Last Admin: 08/12/23 09:43 Dose: 40 mg Documented By: JILL Baclofen (Baclofen 10 Mg Tab) 10 mg PO TID MARCIA Stop: 09/11/23 08:59 Last Admin: 08/12/23 21:27 Dose: 10 mg Documented By: Admin: 08/12/23 14:53 Dose: 10 mg Documented By: Admin: 08/12/23 09:43 Dose: 10 mg Documented By: JILL Dextrose (Dextrose 50% 50 Ml Syringe) 25 - 50 ml IV UD PRN; Protocol PRN Reason: Hypoglycemia Protocol Stop: 09/11/23 01:26 Last Admin: 08/12/23 08:31 Dose: 25 ml Documented By: JILL Dicyclomine HCl (Dicyclomine Hcl 20 Mg Tab) 20 mg PO HS MARCIA Stop: 09/11/23 20:59 Last Admin: 08/12/23 21:28 Dose: 20 mg Documented By: CHARLIE Escitalopram Oxalate (Escitalopram Oxalate 20 Mg Tab) 20 mg PO DAILY MARCIA Stop: 09/11/23 08:59 Last Admin: 08/12/23 09:45 Dose: 20 mg Documented By: JILL Furosemide (Furosemide 40 Mg Tab) 40 mg PO QAM MARCIA Stop: 09/11/23 08:59 Last Admin: 08/12/23 09:43 Dose: 40 mg Documented By: JILL Hydromorphone HCl (Hydromorphone Inj 0.5 Mg/0.5 Ml Syr) 0.5 mg IV Q4H PRN PRN Reason: Mod-Sev Pain (Scale 4-10) Stop: 08/26/23 01:26 Last Admin: 08/12/23 21:32 Dose: 0.5 mg Documented By: Admin: 08/12/23 12:01 Dose: 0.5 mg Documented By: Admin: 08/12/23 02:04 Dose: 0.5 mg Documented By: ESMER Hydroxyzine HCl (Hydroxyzine Hcl 25 Mg Tab) 25 mg PO TID MARCIA Stop: 09/11/23 08:59 Last Admin: 08/12/23 21:29 Dose: 25 mg Documented By: Admin: 08/12/23 14:53 Dose: 25 mg Documented By: Admin: 08/12/23 09:43 Dose: 25 mg Documented By: JILL Sodium Chloride (Nss) 1,000 mls @ 50 mls/hr IV .Q20H MARCIA Stop: 09/11/23 01:26 Last Admin: 08/12/23 23:49 Dose: 50 mls/hr Documented By: Infusion: 08/12/23 23:49 Dose: Infused Documented By: Infusion: 08/12/23 23:46 Dose: 50 mls/hr Documented By: Admin: 08/12/23 02:01 Dose: 50 mls/hr Documented By: ESMER Pantoprazole Sodium 40 mg/ (Dextrose) 100 mls @ 20 mls/hr IV Q5H MARCIA Stop: 09/11/23 15:29 Last Admin: 08/12/23 21:45 Dose: 8 mg/hr, 20 mls/hr Documented By: Infusion: 08/12/23 21:42 Dose: Infused Documented By: Admin: 08/12/23 16:49 Dose: 8 mg/hr, 20 mls/hr Documented By: DANNI Ciprofloxacin (Cipro / D5w) 400 mg in 200 mls @ 100 mls/hr IV Q12H MARCIA; Protocol Stop: 08/22/23 15:29 Last Infusion: 08/12/23 19:15 Dose: Infused Documented By: Admin: 08/12/23 16:54 Dose: 100 mls/hr Documented By: DANNI Metronidazole (Flagyl) 500 mg in 100 mls @ 100 mls/hr IV Q8H MARCIA; Protocol Stop: 08/22/23 15:29 Last Admin: 08/12/23 23:57 Dose: 100 mls/hr Documented By: Infusion: 08/12/23 18:35 Dose: Infused Documented By: Admin: 08/12/23 16:52 Dose: 100 mls/hr Documented By: DANNI Loratadine (Loratadine 10 Mg Tab) 10 mg PO QAM MARCIA Stop: 09/11/23 08:59 Last Admin: 08/12/23 09:44 Dose: Not Given Documented By: JILL Losartan Potassium (Losartan Potassium 25 Mg Tab) 25 mg PO HS MARCIA Stop: 09/11/23 20:59 Last Admin: 08/12/23 21:29 Dose: 25 mg Documented By: CHARLIE Magnesium Oxide (Magnesium Oxide 400 Mg Tab) 400 mg PO DAILY MARCIA Stop: 09/11/23 08:59 Last Admin: 08/12/23 09:44 Dose: 400 mg Documented By: JILL Miscellaneous (Check Buprenorphine Patch) 1 each N/A QS MARCIA Stop: 09/11/23 01:26 Last Admin: 08/12/23 18:36 Dose: 1 each Documented By: Admin: 08/12/23 08:37 Dose: 1 each Documented By: Admin: 08/12/23 02:02 Dose: 1 each Documented By: ESMER Potassium Chloride (Potassium Chloride 10 Meq Tabcr) 10 meq PO BID MARCIA Stop: 09/11/23 08:59 Last Admin: 08/12/23 21:30 Dose: 10 meq Documented By: Admin: 08/12/23 09:55 Dose: 10 meq Documented By: JILL Pregabalin (Pregabalin 100 Mg Cap) 100 mg PO TID MARCIA Stop: 09/11/23 08:59 Last Admin: 08/12/23 21:30 Dose: 100 mg Documented By: Admin: 08/12/23 15:10 Dose: 100 mg Documented By: Admin: 08/12/23 09:55 Dose: 100 mg Documented By: JILL Spironolactone (Spironolactone 25 Mg Tab) 50 mg PO QAM [facility] Stop: 09/11/23 08:59 Last Admin: 08/12/23 09:43 Dose: 50 mg Documented By: JILL Trazodone HCl (Trazodone Hcl 100 Mg Tab) 100 mg PO HS PRN PRN Reason: Sleep Stop: 09/11/23 20:59 Last Admin: 08/12/23 21:30 Dose: 100 mg Documented By: CHARLIE Discontinued Medications Dextrose (Dextrose 50% 50 Ml Syringe) 50 ml IV NOW ONE Stop: 08/11/23 20:17 Last Admin: 08/11/23 20:58 Dose: 50 ml Documented By: DUKE Hydromorphone HCl (Hydromorphone Inj 0.5 Mg/0.5 Ml Syr) 0.5 mg IV NOW STA Stop: 08/11/23 20:17 Last Admin: 08/11/23 20:58 Dose: 0.5 mg Documented By: DKUE Hydromorphone HCl (Hydromorphone Inj 0.5 Mg/0.5 Ml Syr) 0.5 mg IV Q15M PRN PRN Reason: Pain Stop: 08/25/23 22:35 Last Admin: 08/11/23 23:25 Dose: 0.5 mg Documented By: ESMER Pantoprazole Sodium 40 mg/ (Syringe) 10 mls @ 5 mls/min IV NOW ONE Stop: 08/11/23 19:47 Last Admin: 08/11/23 20:12 Dose: 5 mls/min Documented By: CELINA Sodium Chloride (Nss) 1,000 mls @ 125 mls/hr IV .Q8H [facility] Stop: 09/10/23 19:59 Last Infusion: 08/12/23 01:38 Dose: Infused Documented By: Infusion: 08/12/23 01:38 Dose: 0 mls/hr Documented By: Admin: 08/11/23 20:07 Dose: 125 mls/hr Documented By: CELINA Pantoprazole Sodium 80 mg/ (Dextrose) 120 mls @ 480 mls/hr IV NOW ONE Stop: 08/11/23 22:49 Last Infusion: 08/11/23 23:55 Dose: Infused Documented By: Admin: 08/11/23 23:20 Dose: 480 mls/hr Documented By: ESMER Pantoprazole Sodium 40 mg/ (Dextrose) 100 mls @ 20 mls/hr IV Q5H [facility] Stop: 09/10/23 22:59 Last Infusion: 08/12/23 02:30 Dose: Infused Documented By: Admin: 08/11/23 23:20 Dose: 8 mg/hr, 20 mls/hr Documented By: ESMER Ioversol (Optiray 320 500ml) 88 ml IV ONCE ONE Stop: 08/11/23 20:36 Last Admin: 08/11/23 20:35 Dose: 88 ml Documented By: DESTINI Metoclopramide HCl (Metoclopramide Hcl Inj 5 Mg/Ml 2 Ml Vial) 5 mg IV ONE ONE Stop: 08/11/23 19:47 Last Admin: 08/11/23 20:07 Dose: 5 mg Documented By: CELINA Pantoprazole Sodium (Pantoprazole Bolus/Drip) 1 each IV NOW STA Stop: 08/11/23 22:36 Last Admin: 08/11/23 23:35 Dose: 1 each Documented By: ESMER Imaging Data Radiologist's Impression: Abdomen/Pelvis CT 08/11/23 19:48 Exam(s): CT ABDOMEN + PELVIS With Contrast IV Amt: 88ml EXAM: CT Abdomen and Pelvis With Intravenous Contrast CLINICAL HISTORY: Reason for exam: left sided abd pain; hx MENDEZ/splenomegaly. TECHNIQUE: Axial computed tomography images of the abdomen and pelvis with intravenous contrast. CTDI is 27.44 mGy and DLP is 1511.06 mGy-cm. Automated exposure control was utilized for the study. A dose lowering technique was utilized adhering to the principles of ALARA. CONTRAST: Patient received 88ml of IV contrast COMPARISON: No relevant prior studies available. FINDINGS: Lung bases: Unremarkable. No mass. No consolidation. ABDOMEN: Liver: Fatty infiltration. Nodular liver contour, correlate for cirrhosis. No liver lesion. Gallbladder and bile ducts: Unremarkable. No calcified stones. No ductal dilation. Pancreas: Unremarkable. No mass. No ductal dilation. Spleen: Mild splenomegaly. Adrenals: Unremarkable. No mass. Kidneys and ureters: Unremarkable. No solid mass. No hydronephrosis. Stomach and bowel: Mild edema near the distal sigmoid colon, this could represent early colitis, there is no wall thickening of the sigmoid colon. No obstruction. PELVIS: Appendix: No appendicitis. No mass. Bladder: Unremarkable. No mass. Reproductive: Unremarkable as visualized. ABDOMEN and PELVIS: Intraperitoneal space: Unremarkable. No free air. No significant fluid collection. Bones/joints: Mild multilevel degenerative changes of the thoracolumbar spine. Spinal stimulator noted. No acute fracture. No dislocation. Soft tissues: Unremarkable. Vasculature: Unremarkable. No abdominal aortic aneurysm. Lymph nodes: Unremarkable. No enlarged lymph nodes. IMPRESSION: 1. Mild edema near the distal sigmoid colon, this could represent early colitis, there is no wall thickening of the sigmoid colon. 2. Fatty infiltration. Nodular liver contour, correlate for cirrhosis. Electronically signed by: Elli Murray MD 08/11/23 20:55 PM Discharge Plan Visit Data Chief Complaint: Vomiting Stated Complaint: VOMITING BLOOD, RECTAL BLEED ED Provider: Falguni Landers Discharge Problem: Abdominal pain, Bright red rectal bleeding, Hematemesis Patient Disposition: Admitted As Inpatient Discharge Instructions Interventions: ED Discharge Assessment Last Done: 08/12/23 01:28 Discharge Problem: Hematemesis Qualifiers: Nausea presence: without nausea Qualified Code(s): K92.0 - Hematemesis
[2023-08-11] MEDS: SODIUM CHLORIDE 0.9% 1,000 ML IV SCH (20:07)
[2023-08-11] MEDS: METOCLOPRAMIDE HCL INJ 5 MG/ML 2 ML VIAL IV ONE (20:07)
[2023-08-11] MEDS: PANTOprazole 40 MG in SYRINGE 0 ML IV ONE (20:12)
[2023-08-11 20:32] LABS: Phosphorus 3.4 mg/dl (2.5-4.9)
[2023-08-11] MEDS: OPTIRAY 320 500ml IV ONE (20:35)
--- NOTE | 2023-08-11 20:56 | CT Scan Report ---
Exam(s): CT ABDOMEN + PELVIS With Contrast IV Amt: 88ml EXAM: CT Abdomen and Pelvis With Intravenous Contrast CLINICAL HISTORY: Reason for exam: left sided abd pain; hx MENDEZ/splenomegaly. TECHNIQUE: Axial computed tomography images of the abdomen and pelvis with intravenous contrast. CTDI is 27.44 mGy and DLP is 1511.06 mGy-cm. Automated exposure control was utilized for the study. A dose lowering technique was utilized adhering to the principles of ALARA. CONTRAST: Patient received 88ml of IV contrast COMPARISON: No relevant prior studies available. FINDINGS: Lung bases: Unremarkable. No mass. No consolidation. ABDOMEN: Liver: Fatty infiltration. Nodular liver contour, correlate for cirrhosis. No liver lesion. Gallbladder and bile ducts: Unremarkable. No calcified stones. No ductal dilation. Pancreas: Unremarkable. No mass. No ductal dilation. Spleen: Mild splenomegaly. Adrenals: Unremarkable. No mass. Kidneys and ureters: Unremarkable. No solid mass. No hydronephrosis. Stomach and bowel: Mild edema near the distal sigmoid colon, this could represent early colitis, there is no wall thickening of the sigmoid colon. No obstruction. PELVIS: Appendix: No appendicitis. No mass. Bladder: Unremarkable. No mass. Reproductive: Unremarkable as visualized. ABDOMEN and PELVIS: Intraperitoneal space: Unremarkable. No free air. No significant fluid collection. Bones/joints: Mild multilevel degenerative changes of the thoracolumbar spine. Spinal stimulator noted. No acute fracture. No dislocation. Soft tissues: Unremarkable. Vasculature: Unremarkable. No abdominal aortic aneurysm. Lymph nodes: Unremarkable. No enlarged lymph nodes. IMPRESSION: 1. Mild edema near the distal sigmoid colon, this could represent early colitis, there is no wall thickening of the sigmoid colon. 2. Fatty infiltration. Nodular liver contour, correlate for cirrhosis. Electronically signed by: Elli Murray MD 08/11/23 20:55 PM
[2023-08-11] MEDS: DEXTROSE 50% 50 ML SYRINGE IV ONE (20:58)
[2023-08-11] MEDS: HYDROmorphone INJ 0.5 MG/0.5 ML SYR IV STA (20:58)
[2023-08-11] MEDS: PANTOprazole 80 MG in DEXTROSE 5% 100 ML IV ONE (23:20)
[2023-08-11] MEDS: PANTOprazole 40 MG in DEXTROSE 5% MINI-B 100 ML IV SCH (23:20)
[2023-08-11] MEDS: HYDROmorphone INJ 0.5 MG/0.5 ML SYR IV PRN (23:25)
[2023-08-11] MEDS: PANTOPRAZOLE BOLUS/DRIP IV STA (23:35)
--- NOTE | 2023-08-12 00:17 | History & Physical Report ---
Date of Service August 11, 2023 Assessment & Plan (1) Hematemesis: Plan: 53-year-old female with past medical history significant for type 2 diabetes, diabetic retinopathy, hyperlipidemia, diabetic gastroparesis, diabetic polyneuropathy, obstructive sleep apnea on CPAP, hypertension, portal hypertension, esophageal varices, cirrhosis of liver without ascites, GERD, morbid obesity, history of stroke with left-sided weakness ambulates with a cane, psychogenic nonepileptic seizures, chronic pain syndrome, thrombocytopenia, iron deficiency anemia, depression, PTSD, history of COVID comes because of having blood per rectum going on for last 2 weeks and today she had 2 episodes of hematemesis. Patient says she is on Ozempic since June 2022 she gets on and off diarrhea. Last 2 weeks she is noticing blood whenever she has diarrhea. Patient says she had history of bleeding from polyps in the past. And she has appointment for colonoscopy in September. She also has gastroparesis and some days she gets vomiting. Today she vomited couple of times and it was a bile and pink-colored vomitus which prompted her to come to the ER. Since yesterday she noticed pain in the left side of the abdomen traveling up to the rib cage and into the shoulder region on the left side. Denies any chest pain. No shortness of breath. Has a mild headache. No runny nose or sore throat. No cough. Micturating okay. No rash. She gets swelling in the legs on and off. Currently resting comfortably and hemodynamically stable. Hematemesis 2 episodes today Also ongoing blood per rectum for the last 2 weeks and there is a plan for colonoscopy in September as per patient. History of polyp bleed as per patient Patient has history of cirrhosis and esophageal varices and thrombocytopenia. Platelets 98 today Hemoglobin stable at 12.2 Started on Protonix drip Blood consent obtained N.p.o., gentle fluids GI consult in a.m. Close monitor Colitis On CT scan Will follow stool studies GI consulted Diabetes type 2 On insulin pump which patient is to keep on We will hold p.o. medications Sliding scale Close monitor Diabetic gastroparesis Antiemetics as needed Obstructive sleep apnea On CPAP Liver cirrhosis without ascites On Lasix and spironolactone which we will continued Getting gentle fluids Monitor for volume overload History of stroke and left-sided weakness Ambulates with cane On statin Hypertension On atenolol , losartan and diuretics Will monitor Hyperlipidemia On statin Chronic pain Continue buprenorphine patch Depression on Lexapro DVT prophylaxis SCDs Disposition Telemetry Full code History of Present Illness Chief Complaint: Hematemesis, blood per rectum Primary Care Provider: Scott Weldon MD 53-year-old female with past medical history significant for type 2 diabetes, diabetic retinopathy, hyperlipidemia, diabetic gastroparesis, diabetic polyneuropathy, obstructive sleep apnea on CPAP, hypertension, portal hypertension, esophageal varices, cirrhosis of liver without ascites, GERD, morbid obesity, history of stroke with left-sided weakness ambulates with a cane, psychogenic nonepileptic seizures, chronic pain syndrome, thrombocytopenia, iron deficiency anemia, depression, PTSD, history of COVID comes because of having blood per rectum going on for last 2 weeks and today she had 2 episodes of hematemesis. Patient says she is on Ozempic since June 2022 she gets on and off diarrhea. Last 2 weeks she is noticing blood whenever she has diarrhea. Patient says she had history of bleeding from polyps in the past. And she has appointment for colonoscopy in September. She also has gastroparesis and some days she gets vomiting. Today she vomited couple of times and it was a bile and pink-colored vomitus which prompted her to come to the ER. Since yesterday she noticed pain in the left side of the abdomen traveling up to the rib cage and into the shoulder region on the left side. Denies any chest pain. No shortness of breath. Has a mild headache. No runny nose or sore throat. No cough. Micturating okay. No rash. She gets swelling in the legs on and off. Currently resting comfortably and hemodynamically stable. Past medical history. As mentioned above Past surgical history. Colonoscopy. EGD. EGD with endoscopic ultrasound. EGD with biopsy. Neurostimulator. Endometrial ablation. Injection of lumbosacral spine. Ligation of oviducts. Social history. . No smoking. No alcohol use. No drug use. Family history. Mother had COPD. CAD and CABG. Depression. Father had diabetes. CHF. Stroke. Brother has hypertension. Brother has diabetes. Allergies Allergy/AdvReac Type Severity Reaction Status Date / Time naproxen Allergy Unknown BLEEDING Verified 08/11/23 20:32 Home Medications Medication Instructions Recorded Confirmed Type albuterol sulfate 90 mcg/actuation 2 puff inhalation Q6 PRN Shortness 08/11/23 08/11/23 History aerosol inhaler Of Breath Or Wheezing atenolol 100 mg tablet 100 mg PO BID 08/11/23 08/11/23 History atorvastatin 40 mg tablet 40 mg PO DAILYBL 08/11/23 08/11/23 History baclofen 10 mg tablet 10 mg PO TID 08/11/23 08/11/23 History buprenorphine 5 mcg/hour weekly 1 patch topical WK 08/11/23 08/11/23 History transdermal patch dicyclomine 20 mg tablet 20 mg PO HS 08/11/23 08/11/23 History escitalopram oxalate 20 mg tablet 20 mg PO DAILY 08/11/23 08/11/23 History eszopiclone 2 mg tablet 2 mg PO HS 08/11/23 08/11/23 History furosemide 40 mg tablet 40 mg PO QAM 08/11/23 08/11/23 History hydroxyzine HCl 25 mg tablet 25 mg PO TID 08/11/23 08/11/23 History insulin regular human 100 unit/mL 0 unit continuous subcutaneous 08/11/23 08/11/23 History injection solution (Novolin R infusion DIRECTED Regular U-100 Insulin) loratadine 10 mg tablet 10 mg PO QAM 08/11/23 08/11/23 History losartan 25 mg tablet 25 mg PO HS 08/11/23 08/11/23 History magnesium oxide 400 mg PO DAILY 08/11/23 08/11/23 History meclizine 25 mg tablet 25 mg PO TID PRN .dizzy 08/11/23 08/11/23 History metformin 1,000 mg tablet 1,000 mg PO BIDM 08/11/23 08/11/23 History metoclopramide HCl 5 mg tablet 5 mg PO AC PRN Nausea 08/11/23 08/11/23 History naloxone 4 mg/actuation nasal spray 4 mg intranasal DIRECTED PRN 08/11/23 08/11/23 History opiod od omeprazole 20 mg capsule,delayed 20 mg PO BID 08/11/23 08/11/23 History release ondansetron 8 mg disintegrating 8 mg translingual Q8 PRN Nausea 08/11/23 08/11/23 History tablet potassium chloride 10 mEq 10 meq PO BID 08/11/23 08/11/23 History tablet,extended release pregabalin 100 mg capsule 100 mg PO TID 08/11/23 08/11/23 History semaglutide 2 mg/dose (8 mg/3 mL) 2 mg subcut .WEEKLY 08/11/23 08/11/23 History subcutaneous pen injector (Ozempic) spironolactone 50 mg tablet 50 mg PO QAM 08/11/23 08/11/23 History trazodone 100 mg tablet 100 - 200 mg PO HS 08/11/23 08/11/23 History Past Med/Surg History Medical History (Updated 08/11/23 @ 19:55 by Falguni Landers DO) Stroke Seizure Vertigo Liver cancer Thrombocytopenia T2DM (type 2 diabetes mellitus) GERD (gastroesophageal reflux disease) Bipolar disorder Chronic pain HTN (hypertension) HLD (hyperlipidemia) Depression DONNA (obstructive sleep apnea) H/O TIA (transient ischemic attack) and stroke Hypertension Liver cirrhosis secondary to MENDEZ Back pain Surgical History History of tubal ligation History of hysterectomy Family History Other No significant family history Social History Smoking Status: Never smoker Second Hand Exposure: No; Do You Dip or Chew Tobacco: No; Hx Alcohol Use: No Hx Substance Use: No Preferred Language: Citizen Of [place] Communication Ability: Effective Communication Engineer Required: No Beliefs That Will Affect Care: None Current Living Situation: Spouse Current Living Situation Comment: and a son Other Information That Helps Us Care for You: No Feels Safe at Home: Yes Safety Concerns: Feels Safe At This Time Assistive Devices: Cane, Glasses and Walker Review of Systems Review of Systems: All systems reviewed & are unremarkable except as noted in HPI & below Physical Exam Physical Exam: General- Not in distress. Head- atraumatic Eyes- PERRL. ENT- oropharynx clear Neck- supple, no JVD. Lungs- clear to auscultation no wheezing or crackles. Heart- regular rhythm; no murmur, no gallop. Abdomen- normal bowel sounds, soft, diffuse tender more in LLQ mild guarding no distension. Extremities- mild pretibial edema, no erythema seen. Neuro- alert, oriented PERRL, no facial palsy; no dysarthria; moves extremities. Results & Data Results & Data Vital Signs (Past 12 Hours) Vital Signs Temp Pulse Pulse Resp BP BP Pulse Ox 08/11/23 23:23 72 16 145/89 H 100 08/11/23 23:00 73 08/11/23 20:57 80 18 129/81 97 08/11/23 19:58 82 17 130/77 93 08/11/23 19:07 83 08/11/23 18:33 36.5 C 84 20 107/72 97 O2 Del Method 08/11/23 23:23 Room Air 08/11/23 23:00 08/11/23 20:57 Room Air 08/11/23 19:58 Room Air 08/11/23 19:07 08/11/23 18:33 Room Air Diagnostic Findings Laboratory Results WBC 6.83 K/ul (4.8-10.8) 08/11/23 18:41 RBC 4.36 M/uL (4.20-5.40) 08/11/23 18:41 Hgb 12.2 g/dl (12.0-16.0) 08/11/23 18:41 Hct 38.3 % (37.0-47.0) 08/11/23 18:41 MCV 87.8 fL (80.0-100.0) 08/11/23 18:41 MCH 28.0 pg (25.0-34.0) 08/11/23 18:41 MCHC 31.9 g/dL (32.0-36.0) L 08/11/23 18:41 RDW Std Deviation 45.7 fL (36.4-46.3) 08/11/23 18:41 RDW Coeff of Bailey 14.3 % (11.5-14.5) 08/11/23 18:41 Plt Count 98 K/uL (130-400) L 08/11/23 18:41 MPV 9.8 fL (9.4-12.4) 08/11/23 18:41 Immature Gran % (Auto) 0.3 % 08/11/23 18:41 Neut % (Auto) 64.1 % 08/11/23 18:41 Lymph % (Auto) 23.9 % 08/11/23 18:41 King % (Auto) 7.6 % 08/11/23 18:41 Eos % (Auto) 3.4 % 08/11/23 18:41 Baso % (Auto) 0.7 % 08/11/23 18:41 Neut # (Auto) 4.38 K/uL (1.40-6.50) 08/11/23 18:41 Lymph # (Auto) 1.63 K/uL (1.20-3.40) 08/11/23 18:41 King # (Auto) 0.52 K/uL (0.11-0.59) 08/11/23 18:41 Eos # (Auto) 0.23 K/uL (0.00-0.50) 08/11/23 18:41 Baso # (Auto) 0.05 K/uL (0.00-0.20) 08/11/23 18:41 Immature Gran # (Auto) 0.02 K/uL (0.01-0.20) 08/11/23 18:41 Platelet Estimate Decreased (Normal) L 08/11/23 18:41 PT 11.9 Seconds (9.0-12.0) 08/11/23 18:41 INR 1.1 (0.9-1.1) 08/11/23 18:41 APTT 25 Seconds (21-31) 08/11/23 18:41 PTT Ratio 0.9 08/11/23 18:41 Sodium 141 mmol/L (136-145) 08/11/23 18:41 Potassium 4.1 mmol/L (3.5-5.1) 08/11/23 18:41 Chloride 103 mmol/L (98-107) 08/11/23 18:41 Carbon Dioxide 33 mmol/L (21-32) H 08/11/23 18:41 Anion Gap 5 (3-11) 08/11/23 18:41 BUN 14 mg/dl (6-23) 08/11/23 18:41 Creatinine 1.17 mg/dl (0.6-1.2) 08/11/23 18:41 Est Cr Clr Drug Dosing 68.3 ml/min 08/11/23 18:41 Est GFR ( Amer) 62.5 ml/min 08/11/23 18:41 Est GFR (Non-Af Amer) 53.9 ml/min 08/11/23 18:41 BUN/Creatinine Ratio 12.0 (10-20) 08/11/23 18:41 Glucose 70 mg/dl (70-99(Fasting)) 08/11/23 18:41 POC Glucose 134 mg/dl (70-99) H 08/11/23 21:35 Calcium 8.8 mg/dl (8.6-10.3) 08/11/23 18:41 Phosphorus 3.4 mg/dl (2.5-4.9) 08/11/23 18:41 Total Bilirubin 0.5 mg/dl (0.2-1.0) 08/11/23 18:41 AST 32 U/L (13-39) 08/11/23 18:41 ALT 12 U/L (7-52) 08/11/23 18:41 Alkaline Phosphatase 118 U/L (34-104) H 08/11/23 18:41 Total Protein 7.4 gm/dl (6.0-8.3) 08/11/23 18:41 Albumin 4.0 gm/dl (3.4-5.0) 08/11/23 18:41 Globulin 3.4 gm/dl (2.5-4.0) 08/11/23 18:41 Albumin/Globulin Ratio 1.2 (0.9-2) 08/11/23 18:41 Blood Type A Negative 08/11/23 18:41 Antibody Screen NEGATIVE 08/11/23 18:41 Crossmatch See Detail 08/11/23 18:41 Impressions Abdomen/Pelvis CT 08/11/23 19:48 Exam(s): CT ABDOMEN + PELVIS With Contrast IV Amt: 88ml EXAM: CT Abdomen and Pelvis With Intravenous Contrast CLINICAL HISTORY: Reason for exam: left sided abd pain; hx MENDEZ/splenomegaly. TECHNIQUE: Axial computed tomography images of the abdomen and pelvis with intravenous contrast. CTDI is 27.44 mGy and DLP is 1511.06 mGy-cm. Automated exposure control was utilized for the study. A dose lowering technique was utilized adhering to the principles of ALARA. CONTRAST: Patient received 88ml of IV contrast COMPARISON: No relevant prior studies available. FINDINGS: Lung bases: Unremarkable. No mass. No consolidation. ABDOMEN: Liver: Fatty infiltration. Nodular liver contour, correlate for cirrhosis. No liver lesion. Gallbladder and bile ducts: Unremarkable. No calcified stones. No ductal dilation. Pancreas: Unremarkable. No mass. No ductal dilation. Spleen: Mild splenomegaly. Adrenals: Unremarkable. No mass. Kidneys and ureters: Unremarkable. No solid mass. No hydronephrosis. Stomach and bowel: Mild edema near the distal sigmoid colon, this could represent early colitis, there is no wall thickening of the sigmoid colon. No obstruction. PELVIS: Appendix: No appendicitis. No mass. Bladder: Unremarkable. No mass. Reproductive: Unremarkable as visualized. ABDOMEN and PELVIS: Intraperitoneal space: Unremarkable. No free air. No significant fluid collection. Bones/joints: Mild multilevel degenerative changes of the thoracolumbar spine. Spinal stimulator noted. No acute fracture. No dislocation. Soft tissues: Unremarkable. Vasculature: Unremarkable. No abdominal aortic aneurysm. Lymph nodes: Unremarkable. No enlarged lymph nodes. IMPRESSION: 1. Mild edema near the distal sigmoid colon, this could represent early colitis, there is no wall thickening of the sigmoid colon. 2. Fatty infiltration. Nodular liver contour, correlate for cirrhosis. Electronically signed by: Elli Murray MD 08/11/23 20:55 PM Code Status & VTE Plan VTE Prophylaxis Plan VTE Prophylaxis will be ordered: Yes
[2023-08-12] MEDS ORDERED: PANTOPRAZOLE BOLUS/DRIP IV STA (01:27)
[2023-08-12] MEDS ORDERED: PANTOprazole 80 MG in DEXTROSE 5% 100 ML IV ONE (01:27)
[2023-08-12] MEDS ORDERED: NITROGLYCERIN SL 0.4 MG/TAB TAB SL PRN (01:27)
[2023-08-12] MEDS ORDERED: GLUCAGON FOR INJ 1 MG VIAL SQ PRN (01:27)
[2023-08-12] MEDS ORDERED: PHARMACY GLYCEMIC MGMT CONSULT PRN (01:27)
[2023-08-12] MEDS ORDERED: NovoLIN-R INSULIN PER UNIT CHARGE SQ SCH (01:27)
[2023-08-12] MEDS ORDERED: GLUCOSE 10 TAB/TUBE PO PRN (01:27)
[2023-08-12] MEDS ORDERED: CARBOHYDRATES FOR HYPOGLYCEMIA PO PRN (01:27)
[2023-08-12] MEDS ORDERED: INSULIN ASPART PER UNIT CHARGE SC SCH (01:27)
[2023-08-12] MEDS ORDERED: ALBUTEROL HFA 8 GM INHALER INH PRN (01:27)
[2023-08-12] MEDS ORDERED: MECLIZINE HCL 25 MG TAB PO PRN (01:27)
[2023-08-12] MEDS ORDERED: GLUCOSE 40% GEL 15 GM TUBE PO PRN (01:27)
[2023-08-12] MEDS ORDERED: METOCLOPRAMIDE HCL INJ 5 MG/ML 2 ML VIAL IV PRN (01:27)
[2023-08-12] MEDS ORDERED: INSULIN HUMAN REGULAR SC PRN (01:44)
[2023-08-12] MEDS ORDERED: INSULIN, Regular PUMP SC SCH (01:45)
[2023-08-12] MEDS ORDERED: ESZOPICLONE 1 MG TAB PO PRN (01:52)
[2023-08-12] MEDS: SODIUM CHLORIDE 0.9% 1,000 ML IV SCH (02:01)
[2023-08-12] MEDS: CHECK BUPRENORPHINE PATCH SCH (02:02)
[2023-08-12] MEDS: HYDROmorphone INJ 0.5 MG/0.5 ML SYR IV PRN (02:04)
[2023-08-12] MEDS ORDERED: PANTOprazole 40 MG in DEXTROSE 5% MINI-B 100 ML IV SCH (04:00)
[2023-08-12 06:43] LABS: Basophils # (auto) 0.03 K/uL (0.00-0.20); Basophils % (auto) 0.5 %; Eosinophils # (auto) 0.13 K/uL (0.00-0.50); Eosinophils % (auto) 2.4 %; Hematocrit (blood only) 37.2 % (37.0-47.0); Hemoglobin 11.9 g/dl (12.0-16.0); Immature Granulocytes # (auto) 0.02 K/uL (0.01-0.20); Immature Granulocytes % (auto) 0.4 %; Lymphocytes # (auto) 1.28 K/uL (1.20-3.40); Lymphocytes % (auto) 23.1 %; Mean Corpuscular Hemoglobin 27.7 pg (25.0-34.0); Mean Corpuscular Volume 86.7 fL (80.0-100.0); Mean Platelet Volume 9.4 fL (9.4-12.4); Monocytes # (auto) 0.37 K/uL (0.11-0.59); Monocytes % (auto) 6.7 %; Neutrophils % (auto) 66.9 %; Platelet Count 70 K/uL (130-400); RDW Coefficient of Variation 14.2 % (11.5-14.5); RDW Standard Deviation 44.5 fL (36.4-46.3); Red Blood Count 4.29 M/uL (4.20-5.40); White Blood Count 5.53 K/ul (4.8-10.8)
[2023-08-12 06:48] LABS: Calcium 8.2 mg/dl (8.6-10.3); Creatinine Clr Calc Pharmacy 79.9 ml/min; Est GFR (African American) 75.5 ml/min; Est GFR (Non-African American) 65.2 ml/min; Magnesium 1.7 mg/dl (1.7-2.4); Potassium 3.9 mmol/L (3.5-5.1)
[2023-08-12 07:00] LABS: Estimated Average Glucose 126 mg/dl
--- NOTE | 2023-08-12 08:23 | Gastrointestinal Consultation ---
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 H/H overall stable, BUN not elevated, and continues to have low MELD (7). VSS. She has suggestion of distal sigmoid colitis on CTAP. Abd soft, nontender. On exam no evidence for active GIB, no asterixis - no signs of HE or ascites. - Please send stool for C diff, GI pathogen Panel - will r/o infectious colitis - Please cover with empiric ABX - Continue IV PPI gtt - NPO for now and monitor for any recurrent bleeding - Trend H/H, transfuse PRN - For now would not plan inpt scope unless she has recurrent bleeding or significant drop in HGB; would keep plan for OP colonoscopy this spring and would add EGD to this - Avoid APAP > 2 gm daily, hepatotoxins, ETOH - Daily weights - Avoid NSAIDs - After DC pt should f/u with her regular filter washer as OP - hasn't seen since 11/2022 Thank you for allowing us to participate in the care of this patient. Please call with any acute changes, questions or concerns. Please see addendum below with additional recommendation from my supervising physician. Supervising Physician Co-Signing Physician Notes Agree with pe and plan as documented. Known kenney cirrhosis with small varices, obese now with reports of intermittent rectal bleeding- hematochezia at times, ? pink tinged emesis prior to admission, none since admission and no overt hematemesis. no bun rise noted on imaging or significant drop in hgb, bp/hr stable. Meld 7, low platelets. Concerns for possible colitis (sigmoid) on imaging - agree with abx, iv fluids. Agree with further plan of care as documented. History of Present Illness Reason for Consultation: hematemesis, blood per rectum Requesting Physician: Dr. Bradford Attending Physician: Becca Alcocer MD History of Present Illness This is a 53 y/o female with PMHx KENNEY cirrhosis c/w G1EV, PHG, low MELD, who follows with Dr. Fields in [place], also h/o gastroparesis, bipolar, chronic back pain w/ neurostimulator in place, HTN, HLD, depression, history of stroke with left-sided weakness ambulates with a cane, psychogenic nonepileptic seizures. She states she has chronic intermittent hematochezia since she was 16 years old and attributes this to "bleeding polyps." She is due for outpt Colonoscopy in the spring. 2 weeks ago started having more looser stool than normal, and having blood with each BM (bright red, no clots, sometimes small amts). Has 3 loose stools per day. Denies melena. She states she has intermittent vomiting with gastroparesis so that is not new, however yesterday she vomited pink-tinged vomit x 2. She states she became worried and came to the ER yesterday. No [place] ght/dark red and no clots, no coffee grounds. No preceding significant retching. Has not had any stool output or vomiting since yesterday. No abd pain. No CP, SOB, syncope, leg edema, abd distention. She has been eating normally. No fever, chills, dysuria, hematuria. No new meds. No sick contacts. Denies NSAID use; no Tylenol, APAP or tobacco, ETOH use. Labs with HGB 12 (baseline) upon arrival, today 11.3 s/p IVF, with normal BUN. INR, CR, LFTs WNL. MELD = 7 (baseline). CTAP suggestive of possible distal sigmoid colitis. VSS. Last MRI Liver 07/2023: Cirrhosis of the liver with portal hypertension. No observations suspicious for hepatocellular carcinoma is appreciated. Last EGD 10/2022: - Grade I esophageal varices with no bleeding and no stigmata of recent bleeding. - Portal hypertensive gastropathy. - A medium amount of food (residue) in the stomach. - No specimens collected. Last colonoscopy 2015: - Stool in the ascending colon and in the cecum. - Internal hemorrhoids. - The examination was otherwise normal. - No specimens collected. Allergies Allergy/AdvReac Type Severity Reaction Status Date / Time naproxen Allergy Unknown BLEEDING Verified 08/11/23 20:32 Home Medications Medication Instructions Recorded Confirmed Type albuterol sulfate 90 mcg/actuation 2 puff inhalation Q6 PRN Shortness 08/11/23 08/11/23 History aerosol inhaler Of Breath Or Wheezing atenolol 100 mg tablet 100 mg PO BID 08/11/23 08/11/23 History atorvastatin 40 mg tablet 40 mg PO DAILYBL 08/11/23 08/11/23 History baclofen 10 mg tablet 10 mg PO TID 08/11/23 08/11/23 History buprenorphine 5 mcg/hour weekly 1 patch topical WK 08/11/23 08/11/23 History transdermal patch dicyclomine 20 mg tablet 20 mg PO HS 08/11/23 08/11/23 History escitalopram oxalate 20 mg tablet 20 mg PO DAILY 08/11/23 08/11/23 History eszopiclone 2 mg tablet 2 mg PO HS 08/11/23 08/11/23 History furosemide 40 mg tablet 40 mg PO QAM 08/11/23 08/11/23 History hydroxyzine HCl 25 mg tablet 25 mg PO TID 08/11/23 08/11/23 History insulin regular human 100 unit/mL 0 unit continuous subcutaneous 08/11/23 08/11/23 History injection solution (Novolin R infusion DIRECTED Regular U-100 Insulin) loratadine 10 mg tablet 10 mg PO QAM 08/11/23 08/11/23 History losartan 25 mg tablet 25 mg PO HS 08/11/23 08/11/23 History magnesium oxide 400 mg PO DAILY 08/11/23 08/11/23 History meclizine 25 mg tablet 25 mg PO TID PRN .dizzy 08/11/23 08/11/23 History metformin 1,000 mg tablet 1,000 mg PO BIDM 08/11/23 08/11/23 History metoclopramide HCl 5 mg tablet 5 mg PO AC PRN Nausea 08/11/23 08/11/23 History naloxone 4 mg/actuation nasal spray 4 mg intranasal DIRECTED PRN 08/11/23 08/11/23 History opiod od omeprazole 20 mg capsule,delayed 20 mg PO BID 08/11/23 08/11/23 History release ondansetron 8 mg disintegrating 8 mg translingual Q8 PRN Nausea 08/11/23 08/11/23 History tablet potassium chloride 10 mEq 10 meq PO BID 08/11/23 08/11/23 History tablet,extended release pregabalin 100 mg capsule 100 mg PO TID 08/11/23 08/11/23 History semaglutide 2 mg/dose (8 mg/3 mL) 2 mg subcut .WEEKLY 08/11/23 08/11/23 History subcutaneous pen injector (Ozempic) spironolactone 50 mg tablet 50 mg PO QAM 08/11/23 08/11/23 History trazodone 100 mg tablet 100 - 200 mg PO HS 08/11/23 08/11/23 History Patient History Medical History (Updated 08/12/23 @ 12:09 by Kayla Bennett PA-C) Stroke Seizure Vertigo Liver cancer Thrombocytopenia T2DM (type 2 diabetes mellitus) GERD (gastroesophageal reflux disease) Bipolar disorder Chronic pain HTN (hypertension) HLD (hyperlipidemia) Depression DONNA (obstructive sleep apnea) H/O TIA (transient ischemic attack) and stroke Hypertension 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 Back pain Surgical History History of tubal ligation History of hysterectomy Family History Other No significant family history Social History Smoking Status: Never smoker Second Hand Exposure: No; Do You Dip or Chew Tobacco: No; Hx Alcohol Use: No Hx Substance Use: No Preferred Language: [place] Communication Ability: Effective [employer] Supervisor Required: No Beliefs That Will Affect Care: None Current Living Situation: Spouse Current Living Situation Comment: and a son Other Information That Helps Us Care for You: No Feels Safe at Home: Yes Safety Concerns: Feels Safe At This Time Assistive Devices: Cane, Glasses and Walker Review of Systems Review of Systems: All systems reviewed & are unremarkable except as noted in HPI & below Physical Exam Constitutional: well developed, well nourished and comfortable; no acute distress Eyes: Sclera anicteric, no conjunctival injection ENMT: moist mucous membranes, no pallor Neck: trachea midline supple Respiratory: normal respiratory effort, lungs clear to auscultation Cardiovascular: RRR, no murmur, no edema Gastrointestinal (Abdomen): normal bowel sounds, soft, nontender, no hepatosplenomegaly Inspection/Auscultation: abdomen not distended Skin: no rashes, warm and dry Neurologic: alert and oriented x 3, no obvious focal neuro deficit. No asterixis Psychiatric: normal mood and affect Results & Data Vital Signs (Past 12 Hours) Vital Signs Pulse Pulse Resp BP BP Pulse Ox O2 Del Method 08/12/23 07:57 77 08/12/23 03:00 80 15 96 Room Air 08/12/23 02:42 75 08/11/23 23:23 72 16 145/89 H 100 Room Air 08/11/23 23:00 71 20 145/89 H 99 Nasal Cannula 08/11/23 23:00 73 08/11/23 20:57 80 18 129/81 97 Room Air O2 Flow Rate 08/12/23 07:57 08/12/23 03:00 08/12/23 02:42 08/11/23 23:23 08/11/23 23:00 2 08/11/23 23:00 08/11/23 20:57 Laboratory Results 08/12/23 08/12/23 08/12/23 Range/Units 11:06 08:44 08:21 WBC (4.8-10.8) K/ul RBC (4.20-5.40) M/uL Hgb 11.3 L (12.0-16.0) g/dl Hct 35.2 L (37.0-47.0) % MCV (80.0-100.0) fL MCH (25.0-34.0) pg MCHC (32.0-36.0) g/dL RDW Std Deviation (36.4-46.3) fL RDW Coeff of Bailey (11.5-14.5) % Plt Count (130-400) K/uL MPV (9.4-12.4) fL Immature Gran % (Auto) % Neut % (Auto) % Lymph % (Auto) % [place] % (Auto) % Eos % (Auto) % Baso % (Auto) % Neut # (Auto) (1.40-6.50) K/uL Lymph # (Auto) (1.20-3.40) K/uL [place] # (Auto) (0.11-0.59) K/uL Eos # (Auto) (0.00-0.50) K/uL Baso # (Auto) (0.00-0.20) K/uL Immature Gran # (Auto) (0.01-0.20) K/uL Platelet Estimate (Normal) PT (9.0-12.0) Seconds INR (0.9-1.1) APTT (21-31) Seconds PTT Ratio Sodium (136-145) mmol/L Potassium (3.5-5.1) mmol/L Chloride (98-107) mmol/L Carbon Dioxide (21-32) mmol/L Anion Gap (3-11) BUN (6-23) mg/dl Creatinine (0.6-1.2) mg/dl Est Cr Clr Drug Dosing ml/min Est GFR ( Amer) ml/min Est GFR (Non-Af Amer) ml/min BUN/Creatinine Ratio (10-20) Glucose (70-99(Fasting)) mg/dl POC Glucose 106 H 53 L* (70-99) mg/dl Estimat Average Glucose mg/dl Hemoglobin A1c (4.5-5.6) % Calcium (8.6-10.3) mg/dl Phosphorus (2.5-4.9) mg/dl Magnesium (1.7-2.4) mg/dl Total Bilirubin (0.2-1.0) mg/dl AST (13-39) U/L ALT (7-52) U/L Alkaline Phosphatase (34-104) U/L Total Protein (6.0-8.3) gm/dl Albumin (3.4-5.0) gm/dl Globulin (2.5-4.0) gm/dl Albumin/Globulin Ratio (0.9-2) Blood Type Antibody Screen Crossmatch 08/12/23 08/11/23 08/11/23 Range/Units 06:07 21:35 18:41 WBC 5.53 6.83 (4.8-10.8) K/ul RBC 4.29 4.36 (4.20-5.40) M/uL Hgb 11.9 L 12.2 (12.0-16.0) g/dl Hct 37.2 38.3 (37.0-47.0) % MCV 86.7 87.8 (80.0-100.0) fL MCH 27.7 28.0 (25.0-34.0) pg MCHC 32.0 31.9 L (32.0-36.0) g/dL RDW Std Deviation 44.5 45.7 (36.4-46.3) fL RDW Coeff of Bailey 14.2 14.3 (11.5-14.5) % Plt Count 70 L 98 L (130-400) K/uL MPV 9.4 9.8 (9.4-12.4) fL Immature Gran % (Auto) 0.4 0.3 % Neut % (Auto) 66.9 64.1 % Lymph % (Auto) 23.1 23.9 % [place] % (Auto) 6.7 7.6 % Eos % (Auto) 2.4 3.4 % Baso % (Auto) 0.5 0.7 % Neut # (Auto) 3.70 4.38 (1.40-6.50) K/uL Lymph # (Auto) 1.28 1.63 (1.20-3.40) K/uL [place] # (Auto) 0.37 0.52 (0.11-0.59) K/uL Eos # (Auto) 0.13 0.23 (0.00-0.50) K/uL Baso # (Auto) 0.03 0.05 (0.00-0.20) K/uL Immature Gran # (Auto) 0.02 0.02 (0.01-0.20) K/uL Platelet Estimate Decreased L (Normal) PT 11.9 (9.0-12.0) Seconds INR 1.1 (0.9-1.1) APTT 25 (21-31) Seconds PTT Ratio 0.9 Sodium 140 141 (136-145) mmol/L Potassium 3.9 4.1 (3.5-5.1) mmol/L Chloride 103 103 (98-107) mmol/L Carbon Dioxide 33 H 33 H (21-32) mmol/L Anion Gap 4 5 (3-11) BUN 13 14 (6-23) mg/dl Creatinine 1.00 1.17 (0.6-1.2) mg/dl Est Cr Clr Drug Dosing 79.9 68.3 ml/min Est GFR ( Amer) 75.5 62.5 ml/min Est GFR (Non-Af Amer) 65.2 53.9 ml/min BUN/Creatinine Ratio 13.0 12.0 (10-20) Glucose 59 L 70 (70-99(Fasting)) mg/dl POC Glucose 134 H (70-99) mg/dl Estimat Average Glucose 126 mg/dl Hemoglobin A1c 6.0 H (4.5-5.6) % Calcium 8.2 L 8.8 (8.6-10.3) mg/dl Phosphorus 3.4 (2.5-4.9) mg/dl Magnesium 1.7 (1.7-2.4) mg/dl Total Bilirubin 0.5 (0.2-1.0) mg/dl AST 32 (13-39) U/L ALT 12 (7-52) U/L Alkaline Phosphatase 118 H (34-104) U/L Total Protein 7.4 (6.0-8.3) gm/dl Albumin 4.0 (3.4-5.0) gm/dl Globulin 3.4 (2.5-4.0) gm/dl Albumin/Globulin Ratio 1.2 (0.9-2) Blood Type A Negative Antibody Screen NEGATIVE Crossmatch See Detail Diagnostic Findings CTAP:FINDINGS: Lung bases: Unremarkable. No mass. No consolidation. ABDOMEN: Liver: Fatty infiltration. Nodular liver contour, correlate for cirrhosis. No liver lesion. Gallbladder and bile ducts: Unremarkable. No calcified stones. No ductal dilation. Pancreas: Unremarkable. No mass. No ductal dilation. Spleen: Mild splenomegaly. Adrenals: Unremarkable. No mass. Kidneys and ureters: Unremarkable. No solid mass. No hydronephrosis. Stomach and bowel: Mild edema near the distal sigmoid colon, this could represent early colitis, there is no wall thickening of the sigmoid colon. No obstruction. PELVIS: Appendix: No appendicitis. No mass. Bladder: Unremarkable. No mass. Reproductive: Unremarkable as visualized. ABDOMEN and PELVIS: Intraperitoneal space: Unremarkable. No free air. No significant fluid collection. Bones/joints: Mild multilevel degenerative changes of the thoracolumbar spine. Spinal stimulator noted. No acute fracture. No dislocation. Soft tissues: Unremarkable. Vasculature: Unremarkable. No abdominal aortic aneurysm. Lymph nodes: Unremarkable. No enlarged lymph nodes. IMPRESSION: 1. Mild edema near the distal sigmoid colon, this could represent early colitis, there is no wall thickening of the sigmoid colon. 2. Fatty infiltration. Nodular liver contour, correlate for cirrhosis. (1) Hematemesis Nausea presence: without nausea Qualified Code(s): K92.0 - Hematemesis
[2023-08-12] MEDS: DEXTROSE 50% 50 ML SYRINGE IV PRN (08:31)
--- OUTSIDE RECORDS SUMMARY | 2023-08-12 09:17 | External Medical Summary | Summary of Care ---
Author Name Unknown Organization [facility] Address [address] [place] [address] Phone [phone] Care Team Providers Care Crate Opener Name Role Phone Scott Weldon MD Primary Care Provider + Reason for Visit * Reason Comments eRx-Medication Refill Encounter Details Date Type Department Care Team (Late st Contact Info) Description 08/08/2023 Refill Family Practice [facility] [address] [facility] [place] [address] Scott Weldon MD [address] [facility] [place] [address] Allergies Active Allergy Reactions Criticality Noted Date Comments Naproxen Sodium Bleeding High 11/29/2013 Pollen 12/03/2022 Seasonal Food (See Comments) Anaphylaxis High 04/20/2019 Hot peppers (oils) Kiwi Extract Anaphylaxis High 04/20/2019 documented as of this encounter (statuses as of 08/10/2023) Medications Medication Sig Dispensed Refills Start Date End Date Status ONETOUCH ULTRASOFT LANCETS MISCIndications:DM type 2, not at goal (HCC) check FS 6 times daily 4 Box 5 06/22/19 15 Active Insulin Syringe-Needle U-100 (BD INSULIN SYRINGE) 30G X 1/2" 0.5 ML MISC 3 daily injection in case of pump malfunction 100 Box Dosing Unit 3 12/31/19 16 Active insulin glargine (LANTUS SOLOSTAR) 100 UNIT/ML SOPN 50 units daily in case of pump malfunction 5 Pre-filled Pen Syringe Dosing Unit 3 12/31/19 16 Active B-D Ultrafine III, 5MM, Pen MISC Use as directed. 100 Pre-filled Pen Syringe Dosing Unit 12/31/19 16 Active Glucose Blood (SYLVIA CONTOUR NEXT TEST) STRP Use to test blood sugar up to 6 times per day. E11.9 These are the ONLY test strips patient can use with insulin pump 200 Strip 5 02/18/20 17 Active Insulin Pen Needle (BD PEN NEEDLE MINI U/F) 31G X 5 MMIndications:Type 2 diabetes mellitus with hemoglobin A1c goal of less than 8.0% (HCC) Use with Victoza once daily 100 Each 5 06/15/19 18 Active Insulin Infusion Pump (MINIMED 630G INSULIN PUMP) KITIndications:Type 2 diabetes mellitus with hemoglobin A1c goal of less than 8.0% (HCC) Use as directed. 0 07/30/19 18 Active CPAP every night at bedtime. 0 Active Glucagon Emergency 1 MG Injection Kit As directed 1 Kit 09/05/19 23 Active Atorvastatin Calcium 40 MG Oral Tablet (Lipitor)Indication s:Dyslipidemia, goal LDL below 100 Take 1 Tablet by mouth in the morning. 90 Tablet 3 09/09/19 23 Active Additional Information Patient taking differently:40 mg OralHS, Reported on 10/06/2022 Magnesium Oxide 400 (240 Mg) MG Oral Tablet (Mag-Ox)Indications :Hypomagnesemia TAKE 1 TABLET BY MOUTH EVERY DAY 90 Tablet 3 10/06/19 23 Active Escitalopram Oxalate 20 MG Oral Tablet (Lexapro) Take 1 Tablet by mouth in the morning. 90 Tablet 1 11/05/19 23 Active Dicyclomine HCl 20 MG Oral Tablet (Bentyl) Take 1 Tablet by mouth 2 times a day as needed for Pain or Cramping. 180 Tablet 11/15/19 23 Active Naloxone HCl 4 MG/0.1ML Nasal Liquid (Narcan Nasal)Indications:C ontrolled substance agreement signed,Chronic pain syndrome Administer 1 spray into 1 nostril for suspected opioid overdose. Seek immediate medical attention. [email or web address]?[email or web address] 1 Each 11/28/19 23 Active hydrOXYzine HCl 25 MG Oral Tablet Take 1 tab during the day every 4-6 hours as needed for anxiety and take 2 tabs at bedtime as needed for anxiety 120 Tablet 3 02/03/20 23 Active Omeprazole 20 MG Oral Capsule Delayed Release (PriLOSEC)Indicatio ns:Gastroesophageal reflux disease without esophagitis TAKE 1 CAPSULE BY MOUTH TWICE A DAY 180 Capsule 1 03/05/20 23 Active Atenolol 100 MG Oral Tablet (Tenormin)Indicatio ns:Tachycardia TAKE 1 TABLET BY MOUTH TWICE A DAY 180 Tablet 3 04/09/20 23 Active Loratadine 10 MG Oral Tablet (Claritin)Indicatio ns:Allergic rhinitis TAKE 1 TABLET BY MOUTH IN THE MORNING FOR ALLERGIES. 90 Tablet 1 04/13/20 23 Active Metoclopramide HCl 5 MG Oral Tablet (Reglan) Take 1 Tablet by mouth in the morning and 1 Tablet at noon and 1 Tablet in the evening. Take before meals. If needed for nausea. 30 Tablet 0 04/15/20 23 Active Meclizine HCl 25 MG Oral Tablet (Antivert)Indicatio ns:Vertigo Take 1 Tablet by mouth 3 times a day as needed for Dizziness. 30 Tablet 1 04/15/20 23 Active Zoster Vac Recomb Adjuvanted 50 MCG/0.5ML Intramuscular Suspension Reconstituted (Shingrix)Indicatio ns:Need for vaccination for zoster Inject 0.5 mL into a large muscle now and repeat dose in 60 to 180 days 1 Each 1 04/16/20 23 Active Losartan Potassium 25 MG Oral Tablet (Cozaar)Indications :HTN, goal below 130/80 TAKE 1 TABLET BY MOUTH EVERYDAY AT BEDTIME 90 Tablet 1 04/17/20 23 Active Spironolactone 50 MG Oral Tablet (Aldactone)Indicati ons:Liver cirrhosis secondary to nonalcoholic steatohepatitis (MENDEZ) (HCC),Obesity, Class III, BMI 40-49.9 (morbid obesity) (HCC),Type 2 diabetes mellitus with hemoglobin A1c goal of less than 8.0% (HCC),HTN, goal below 130/80,Dyslipidemia , goal LDL below 100,Other ascites,Peripheral edema TAKE 1 TABLET BY MOUTH EVERY DAY IN THE MORNING 90 Tablet 1 04/20/20 23 Active Furosemide 40 MG Oral Tablet (Lasix)Indications: Other ascites,Cirrhosis of liver with ascites, unspecified hepatic cirrhosis type (HCC),Edema, unspecified type TAKE 1 TABLET BY MOUTH EVERY DAY IN THE MORNING 90 Tablet 1 04/17/20 23 Active NovoLIN R ReliOn 100 UNIT/ML Injection Solution (insulin REGULAR human)Indications:T ype 2 diabetes mellitus with hemoglobin A1c goal of less than 8.0% ([facility]),DM type 2, not at goal ([facility]) INJECT UP TO 200 UNITS SUBCUTANEOSULY ONCE DAILY VIA PUMP 60 mL 0 05/05/20 23 Active Pregabalin 100 MG Oral Capsule (Lyrica)Indications :Bilateral low back pain with sciatica, sciatica laterality unspecified, unspecified chronicity TAKE 1 CAPSULE BY MOUTH EVERY DAY IN THE MORNING , AT NOON, AND BEFORE BEDTIME 270 Capsule 1 06/05/20 23 Active Baclofen 10 MG Oral Tablet (Lioresal)Indicatio ns:muscle spasms Take 1 Tablet by mouth 3 times a day as needed for Muscle spasms. 90 Tablet 5 06/30/19 24 Active Potassium Chloride ER 10 MEQ Oral Tablet Extended ReleaseIndications: HTN, goal below 130/80 TAKE 1 TABLET BY MOUTH TWICE A DAY WITH FOOD 180 Tablet 1 07/17/19 24 Active Albuterol Sulfate HFA 108 (90 Base) MCG/ACT Inhalation Aerosol Solution INHALE 2 PUFFS BY MOUTH EVERY 6 HOURS NEEDED FOR SHORTNESS OF BREATH 18 g 2 07/17/19 24 Active metFORMIN HCl 1000 MG Oral Tablet (Glucophage)Indicat ions:DM type 2, not at goal ([facility]) TAKE 1 TABLET BY MOUTH 2 TIMES A DAY WITH MORNING AND EVENING MEALS 180 Tablet 1 07/17/19 24 Active Buprenorphine 5 MCG/HR Transdermal Patch Weekly (Butrans) Place 1 Patch topically on the skin once a week. 4 Patch 0 07/24/19 24 Active Eszopiclone 2 MG Oral Tablet (Lunesta) Take 1 Tablet by mouth at bedtime. 30 Tablet 1 07/29/19 24 Active traZODone HCl 100 MG Oral Tablet (Desyrel) Take 1-2 Tablets by mouth at bedtime. 180 Tablet 1 07/29/19 24 Active Ozempic (2 MG/DOSE) 8 MG/3ML Subcutaneous Solution Pen-injector (Semaglutide (2 MG/DOSE)) Take 2 mg weekly E11.9 0 08/06/19 24 Active Ondansetron 8 MG Oral Tablet Disintegrating (Zofran) PLACE 1 TABLET ON TONGUE AND DISSOLVE EVERY 8 HOURS NEEDED FOR NAUSEA 30 Tablet 0 08/10/19 24 Active Ondansetron 8 MG Oral Tablet Disintegrating (Zofran) Place 1 Tablet on tongue every 8 hours as needed for Nausea. dissolve on tongue. 90 Tablet 2 04/18/20 23 024 Discontinued documented as of this encounter (statuses as of 08/10/2023) Active Problems Problem Noted Date Diagnosed Date Esophageal varices without bleeding 09/08/2022 Hemiplegia and hemiparesis f ollowing cerebral infarction affecting unspecified side 08/19/2021 Diabetic retinopathy of both eyes without macular edema associated with type 2 diabetes mellitus 02/21/2021 Overview: Per retinal scan 12/14/2019 History of 2019 novel coronavirus disease (COVID -19) 09/03/2020 Major depressive disorder, recurrent episode, mo derate 07/10/2020 PTSD (post-traumatic stress disorder) 07/10/2020 Iron deficiency anemia 01/11/2020 Diabetes mellitus with background retinopathy Overview: 2020 telemed images, mild Encounter for venous access device care 12/23/19 Severe obesity (BMI 35.0-39.9) with comorbidity 11/07/2019 Diabetic polyneuropathy asso ciated with type 2 diabetes mellitus 08/24/2019 Generalized anxiety disorder 06/09/2019 Recurrent major depressive disorder, in partial remission 06/09/2019 Left hemiplegia 10/06/2018 Liver masses 09/02/2018 Overview: More specific code in use. Thrombocytopenia 07/12/2018 Diabetic gastroparalysis 07/12/2018 Portal hypertension 07/12/2018 Encounter for care related to vascular access po rt 01/21/2018 Overview: Acute. Gastroparesis 09/10/[address] 05/05/2017 Well adult exam 07/17/2016 Overview: Need pap/mammo. UTOX due 08/26 10/28 EGD-Mild portal hypertensive gastropathy was found in the entire examined stomach 01/25 EGD_- Non-bleeding grade I esophageal varices. - Portal hypertensive gastropathy. - Multiple gastric polyps. Biopsied. - A single gastric polyp. Biopsied. - Normal examined duodenum. 11/25 mild anemia, iron WNL. ?heme 07/2019 1y trigger shot/SI injection consent signed Family friend-Tony. Son Ricky-fall. Also son Hieu. Sim--2019 melanoma. . 12/24 EGD mild gastritis, krishna 1y 08/23 EGD--food in stomach. Krishna 1y. +gastroparesis? Rx reglan. Consider erythromycin Consent trigger good until Jul 201707/25 MRI brain WNL Cirrhosis of liver without ascites 02/07/2016 Chronic pain syndrome 11/28/2015 Controlled substance agreement signed 08/31/2015 Lumbago with sciatica 07/05/2015 Psychogenic nonepileptic seizure 03/21/2015 Type 2 diabetes mellitus wit h hemoglobin A1c goal of less than 8.0% 06/22/2014 Vitamin D deficiency 03/02/2012 HTN, goal below 130/80 01/26/2012 Overview: Per HTN Protocol #27. 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 documented as of this encounter (statuses as of 08/10/2023) Resolved Problems Problem Noted Date Diagnosed Date Resolved Date Protein-calorie malnutrition 10/03/2020 07/22/2021 Pneumonia due to COVID-19 virus 09/10/2020 02/17/2022 Diabetes mellitus with background retinopathy 02/28/2003/14/2020 Kidney disease, chronic, sta ge III (GFR 30-59 ml/min) 11/14/2019 01/12/2020 Overview: Per CKD protocol Severe obesity (BMI 35.0-39. 9) with comorbidity 11/07/2019 11/07/[address] 04/20/20192018 Nonintractable generalized i diopathic epilepsy without status epilepticus 03/09/201907/2019 Malignant neoplasm of liver 02/04/2019 07/10/2020 Obesity, Class III, BMI 40-4 9.9 (morbid obesity) 07/12/2018 12/07/2019 Overview: More specific code in use. Vertigo 02/19/2016 03/14/2023 Breast cancer screening 11/30/2015 05/0 06/2018 Vaginitis 05/18/2015 05/21/2016 Vaginitis 10/18/2014 01/24/2015 Vaginitis 09/18/2014 01/24/2015 Vaginitis 05/16/2014 09/15/2014 Vaginitis 04/12/2014 09/15/2014 Vaginitis 02/02/2014 09/15/2014 Weakness 10/26/2013 09/15/2014 Bipolar disorder 08/29/2013 06/09/2019 Overview: On Seroquel for years, meds here, prior [place] Palpitations 08/29/2013 09/15/2014 Malaise and fatigue 11/07/2012 09/16/19 15 Type 2 diabetes, HbA1c goal < 7% 11/04/2012 09/15/2014 Arthralgia of multiple joints 10/13/2012 01/24/2015 Abdominal pain, generalized 09/08/2012 05/06/2016 Ascites 09/08/2012 09/15/2014 Other psychological or physi eduardo stress, not elsewhere classified 08/19/2012 03/22/2013 Benign neoplasm of stomach 07/27/2012 0 09/15/2014 Overview: fundic polyp-repeat EGD in 1 yr Reflux 07/27/2012 09/15/2014 Lymphadenitis, unspecified, except mesenteric 05/14/20 12 10/06/2018 Pain of upper abdomen 03/03/20122018 Vaginitis 01/23/2012 09/15/2014 Vaginitis 09/18/2011 01/23/2012 OBSTIPATION 04/11/2011 09/15/2014 Dyslipidemia, goal LDL below 70 04/11/2011 05/13/2011 Need for vaccination for viral hepatitis 03/26/2011 08/19/2012 Type 2 diabetes mellitus wit h hemoglobin A1c goal of less than 7.0% 01/28/2011 03/22/2013 Overview: ICD-10 update of inactive term Abnormal results of liver function studies 01/22/2011 09/12/2019 Overview: Acute. Abdominal pain 01/21/2011 08/19/2012 OBESITY, BMI= 35.49 12/30/10 12/30/2010 08/19/2012 OBSTIPATION 12/30/2010 03/22/2013 Edema 12/30/2010 09/12/2019 Overview: Acute. Steatohepatitis, non-alcoholic 08/28/2010 09/15/2014 OBESITY, BMI= 36.56 08/16/10 08/16/2010 01/23/2012 OBESITY, BMI= 36.56 08/01/10 08/01/2010 01/23/2012 Acute conjunctivitis 04/30/2010 013 Abdominal pain, right upper quadrant 04/10/2010 01/24/2015 Cough 04/10/2010 01/23/2012 Myalgia and myositis 04/10/2010 013 Acute URI 04/10/2010 01/23/2012 Allergic rhinitis 04/10/2010 01/24/2015 Dyslipidemia, goal LDL below 70 03/06/2010 12/30/2010 DM type 2, not at goal 03/05/201005/13 HYPERGLYCEMIA 02/26/2010 12/30/2010 Abnormal results of liver function studies 02/26/2010 12/30/2010 HTN, goal below 130/80 02/25/201001/28 Overview: Per HTN Protocol #27. Obesity, Class II, BMI 35-39 .9, isolated (see actual BMI) 09/03/2009 02/25/2010 Overview: Per Obesity Taxonomy Acute bronchitis, antibiotics not indicated 08/09/2009 02/25/2010 Tietze's disease 08/02/2009 02/25/2010 Fever 03/19/2009 02/25/2010 Cough 03/19/2009 02/25/2010 Unspecified viral infection, in conditions classified elsewhere and of unspecified site 03/19/2009 02/25/2010 Abnormal weight gain 02/06/2009 012 Bipolar I disorder, most rec ent episode depressed, moderate 12/18/2008 08/19/2012 Tachycardia 11/01/2008 08/19/2012 ACUTE STRESS 11/01/2008 08/19/2012 Migraine variant, intractable 09/26/2008 08/19/2012 Backache 09/26/2008 08/19/2012 Overweight (BMI 25.0-29.9) 09/26/2008 0 09/03/2009 Overview: Per Obesity Taxonomy Coronary atherosclerosis of [place] coronary artery 09/15/2008 10/03/2008 Malaise and fatigue 09/15/2008 08/20/19 13 Dyslipidemia, goal to be determined 09/15/2008 02/25/2010 Chest pain 09/15/2008 08/19/2012 HTN, goal below 140/90 09/15/200802/25 Migraine with aura, intractable 08/24/2008 08/19/2012 Family history of ischemic heart disease 06/30/2008 08/19/2012 Acute URI 05/30/2008 06/30/2008 Cough 05/30/2008 06/30/2008 Syncope and collapse 05/12/2008 010 ADVANCE DIRECTIVE INFORMATION 02/28/2005 09/12/2019 Overview: no advance directive- info given Historical. ADV EFF MED-BIOL SUB NOS 07/02/2001 Major depressive disorder 07/02/2001 Overview: ICD-10 update of inactive term Insomnia 07/02/2001 07/05/2015 Overview: ICD-10 update of inactive term ANXIETY STATE NOS 07/02/2001 09/15/2014 Headache 07/02/2001 09/15/2014 Overview: ICD-10 update of inactive term ACUTE CYSTITIS 01/06/2001 10/02/2003 Candidal vulvovaginitis 01/06/200109/07 Constipation 09/02/2000 08/29/2013 Overview: ICD-10 update of inactive term ACUTE BRONCHITIS 07/04/1999 10/02/2003 Dyslipidemia, goal LDL below 100 03/06/2010 ASCVD 01/24/2015 Other specified disorders of liver 12/30/2010 Overview: fatty liver Kidney stone 09/15/2014 Overview: x 2 documented as of this encounter (statuses as of 08/10/2023) Immunizations Name Administration Dates Next Due COVID-19 mRNA, LNP-s, No Pre serve, 2-Dose Series ([employer] Mobile) 11/08/2020,10/11/2020 HEP A - Hepatitis A (Adult > 18 yrs) 04/11/2011, 09/20/2010 Hepatitis B, 20+ yrs 07/05/2015 Pneumococcal Conjugate Vacci ne, 20-valent ([id number]) 03/13/2023 Pneumococcal Polysaccharide PPV23 (Pneumovax) 02/19/2018,03/09/2007 Seasonal Influenza, PF, 6 M & above, IM , (FluLaval or Fluzone) 03/13/2023,03/01/2021,02/28/2020,03/09,02/19/2018,03/02/2017 Seasonal Influenza, Quadriva lent, No Preserve, IM 03/20/2016,07/05/2015 Seasonal Influenza, Split, I IV3, With Preserve, Inj 06/22/2014,03/03/2013,04/09/2012,04/11,02/25/2010,02/19/2009,05/17/2008 ,03/09/2007 TDAP (age 10 and older)(Boostrix) 08/05/2018 TDAP (age 11 and older)(Adacel) 05/15/2008 Zoster Vaccine Recombinant (Shingrix) 04/19/2023 documented as of this encounter Social History Tobacco Use Types Packs/Day Years Used Date Smoking Tobacco: Never Passive Smoke Exposure: Past Smokeless Tobacco: Never Alcohol Use Standard Drinks/Week Comments No 0 (1 standard drink = 0.6 oz pur e alcohol) PHQ-2 Answer Date Recorded PHQ Adult Total Score 0 03/13/2023 Hunger Vital Sign Answer Date Recorded Within the past 12 months, y ou worried that your food would run out before you got the money to buy more. Never true 03/13/20 23 Within the past 12 months, t he food you bought just didn't last and you didn't have money to get more. Never true 03/13/2023 Sex and Gender Information Value Date Recorded Sex Assigned at Female 05/08/2020 7:03 PM EST Gender Identity Female 05/08/2020 7:03 PM EST Sexual Orientation Straight 10/26/2019 3: 40 PM EDT Job Start Date Occupation Industry Not on file Not on file Not on file documented as of this encounter Functional Status Functional Status Response Date of Assess ment Are you deaf or do you have serious difficulty hearing? No 04/20/2019 Are you blind or do you have serious difficulty seeing, even when wearing glasses? No 04/20/2019 Do you have serious difficul ty walking or climbing stairs? (5 years old or older) Yes 04/20/2019 Do you have difficulty dress ing or bathing? (5 years old or older) No 04/20/2019 Because of a physical, menta l, or emotional condition, do you have difficulty doing errands alone such as visiting a doctor s office or shopping? (15 years old or older) Yes-no license 04/20/20 19 Cognitive Status Response Date of Assessm ent Because of a physical, menta l, or emotional condition, do you have serious difficulty concentrating, remembering, or making decisions? (5 years old or older) No 04/20/2019 documented as of this encounter Miscellaneous Notes * Telephone Encounter - Kavon Caro MD - 08/10/2023 10:33 PM EST Signed Prescriptions: Disp Refills Ondansetron 8 MG Oral Tablet Disintegratin*30 Tab*0 Sig: PLACE 1TABLET ON TONGUE AND DISSOLVE EVERY 8 HOURS NEEDED FOR NAUSEAAuthorizing Provider: KAVON CARO * Telephone Encounter - Yumiko Malone [facility] - 08/10/2023 12:12 PM ESTPending Prescriptions: Disp Refills Ondansetron 8 MG Oral Tablet Disintegratin*90 Tab*2 Sig: PLACE 1 TABLET ON TONGUE AND DISSOLVE EVERY 8 HOURS NEEDED FOR NAUSEA * Telephone Encounter - Yumiko Malone RPh - 08/10/2023 12:12 PM EST Please approve if patient is to continue. Did you pend patient's preferred pharmacy and medication before forwarding?1 Pharmacy: [id number] [address] [facility] Pending Prescriptions: Disp Refills Ondansetron 8 MG Oral Tablet Disintegrati*90 Tab*2 Sig: PLACE 1 TABLET ON TONGUE AND DISSOLVE EVERY 8 HOURS NEEDED FOR NAUSEA Last Visit: 03/13/2023 (in office), 09/08/2022 (telemedicine) Next Visit: Visit date not found If no future appointments scheduled, and last appointment is greater than a year ago, please schedule patient for a follow-up appointment Last date the medication was ordered: 04/18/23 Is this request for a controlled substance?No Urine Drug Screen: Results for orders placed or performed in visit on 03/11/22 PAIN MANAGEMENT DRUG PANEL, URINE W/ INTERPRETATION Result Value Compliance Interpretation Based on the medication information provided: The positive oxycodone screening result is CONSISTENT with recent oxycodone use. Confirmatory testing is available upon request. Amphetamines Screen, U Negative Benzodiazepines Screen, U Negative Cannabinoids Screen, U Negative Cocaine Metabolite Screen, U Negative Fentanyl Screen, U Negative Hydrocodone Screen, U Negative Methadone Metabolite Screen, U Negative Morphine/Codeine Screen, U Negative Oxycodone Screen, U Positive (A) Valid Interpretation Normal Creatinine, U 22 Narrative Cutoff Concentrations: Drug Level Amphetamines 500 ng/mL Benzodiazepines 100 ng/mL Cannabinoids 50 ng/mL Cocaine Metabolite 150 ng/mL Fentanyl 1 ng/mL Hydrocodone / Hydromorphone 300 ng/mL Methadone Metabolite 100 ng/mL Morphine / Codeine 300 ng/mL Oxycodone / Oxymorphone 100 ng/mL Screening results are presumptive and can only be used for medical purposes. Confirmatory testing is available upon request. *Note: Due to a large number of results and/or encounters for the requested time period, some results have not been displayed. A complete set of results can be found in Results Review. Patient Phone Numbers Labs: Lab Results Component Value Date/Time CREAT 1.3 (H) 07/23/2023 12:00 PM CREAT 1.1 (H) 06/14/2020 09:00 AM POTASSIUM 4.4 07/23/2023 12:00 PM POTASSIUM 4.2 06/14/2020 09:00 AM POTASSIUM 4.5 07/18/1996 10:50 AM TSH 0.73 04/06/2020 01:20 PM LDLCALC 54 07/23/2023 12:00 PM LDLCALC 62 12/12/2019 09:47 AM LDLDIRECT NOT APPLICABLE 12/12/2019 09:47 AM LDLDIRECT 72 11/28/2015 04:11 PM ALT 25 12/03/2022 03:43 PM ALT 17 06/14/2020 09:00 AM HGBA1C 5.8 (H) 07/23/2023 12:00 PM HGBA1C 7.9 (H) 06/14/2020 09:00 AM documented in this encounter Plan of Treatment Upcoming Encounters Date Type Department Care Team (Late st Contact Info) Description 08/14/2023 11:00 AM EST [facility] [place] [address] [facility] [address] [facility] [address] [facility] [facility] [address] 08/19/2023 2:15 PM EDT Office Visit Hematology/Oncology Roney Melendez [place] [address] [place] [phone] Sunil Bourgeois MD [address] [facility] [place] [address] 08/19/2023 3:00 PM EDT Immunization/Injection Hematology/Oncology Treatment, [place] [address] [facility] [phone] Nurse, Med [address] [facility] [place] [address] 08/25/2023 9:30 AM EDT Telemedicine Psychiatry, [facility] [address] [facility] [place] [address] Rj Mai MD [address] [place] [address] 09/16/2023 1:20 PM EDT Office Visit Neurology [facility] [address] [facility] [place] [address] Yesenia Wayne PA-C [address] [facility] [place] [address] 11/05/2023 1:00 PM EDT Telemedicine Pharmacy, [facility] [address] [place] [address] [facility] [address] [place] [address] 12/03/2023 9:30 AM EDT Procedure Only Endoscopy, [facility] [place] [address] [place] [address] Aj Pruett DO [address] [place] [address] Health Maintenance Due Date Last Done Comments HPV/Co-Test 2002 Cervical Cancer Screening 04/12/2018 Pap Smear 04/12/2018 04/12/2015, 10/2014, 09/28/2008, Additional history exists Mammogram 05/07/2019 05/07/2018, 01/21/2016 COLONOSCOPY-EVERY 5 YRS AGES 18-100 06/27/2020 06/27/2015, 06/27/2015, 06/06/2010, Additional history exists Diabetic Eye Exam 01/16/2023 01/16/2022, , 12/14/2019, Additional history exists COVID-19 Vaccine ( season) 2023 11/08/2020, 10/11/2020 B-12 06/11/2023 06/11/2022, 12/2020, 07/05/2019, Additional history exists Zoster Vaccines (2 of 2) 06/14/2023 04/19/2023 HbA1c 01/21/2024 07/23/2023, 02/06, 06/11/2022, Additional history exists Depression Screening 03/13/2024 03/13/2023, 10/01/2016 (Declined) Diabetic Foot Exam 03/13/2024 03/13/2023, 0 10/03/2021, 11/07/2019, Additional history exists Albumin/Creatinine Ratio 07/23/2024 024, 04/06/2023, 03/11/2022, Additional history exists GFR 07/23/2024 07/23/2023, 11/07, 06/11/2022, Additional history exists Lipid Panel 07/23/2028 07/23/2023, 09/2021, 12/12/2019, Additional history exists DTaP,Tdap,and Td Vaccines (3 - Td or Tdap) 08/05/2028 08/05/2018, 05/15/2008 Influenza Vaccine (FLU shot) Completed 11/2022, 03/01/2021, 02/28/2020, Additional history exists Pneumococcal Vaccine: Pediatrics (0 to 5 Years) and At-Risk Patients (6 to 64 Years) Completed 03/13/2023, 02/19/2018, 03/09/2007 GARDASIL-HPV IMMUNIZATION SERIES Aged Out No longer eligible based on patient's age to complete this topic MENINGOCOCCAL (MENACTRA/MENVEO) Aged Out No longer eligible based on patient's age to complete this topic documented as of this encounter Medical Devices Implanted Type Area Automatic Equipment Technician Device Identifier Shelf Expiration Date Model / Serial / Lot Neurostimul Intellis Adaptiv - [id number] - [id number] Implanted:Qty: 1 on 08/22/2022 by Rafia Small MD at OR [facility] N/A: Spine Lumbar [employer] 06/21/2023 [id number] / [id number] / Description:battery Medtronic Lead Kit 60 Cm Implanted:Qty: 1 on 08/22/2022 by Rafia Small MD at OR [facility] N/A: Spine Lumbar 02/01/2026 [id number] / / [id number] Medtronic Lead Kit 60cm Implanted:Qty: 1 on 08/22/2022 by Rafia Small MD at OR [facility] N/A: Spine Lumbar 03/21/2026 [id number] / / [id number] Envelope Tyrx Med Antibacteril - [id number] Implanted:Qty: 1 on 08/22/2022 by Rafia Small MD at OR [facility] N/A: Spine Lumbar [employer] 03/10/2023 [id number] / / [id number] documented as of this encounter Advance Directives Latest Code Status on File Code Status Date Activated Date Inactivated Comments Full Code 04/20/2019 11:06 AM 04/21/2019 6:32 PM Th is order reflects the patients wishes and were consensually agreed upon. Question Answer Comments Discussion of Advance Directives occurred with: Patient Does the patient have a Living Will? No Does the patient have Health Care Power of Roller Bearing Inspector? No Code Status History Code Status Date Activated Date Inactivated Comments Full Code 01/21/2011 12:12 PM 01/22/2011 8:48 PM This order reflects the patients wishes and were consensually agreed upon. Question Answer Comments Discussion of Advance Directives occurred with: Patient Does the patient have a Living Will? No Does the patient have Health Care Power of Roller Bearing Inspector? No Care Teams Crate Opener Relationship Specialty Start Date End Date Scott Weldon MD [address] [place] [address] PCP - General Family Medicine 08/03/18 documented as of this encounter
--- OUTSIDE RECORDS SUMMARY | 2023-08-12 09:17 | External Medical Summary | Summary of Care ---
Author Name Unknown Organization [facility] Address [address] [place] [address] Phone [phone] Care Team Providers Care Central Sterile Supply Technician Name Role Phone Scott Montoya MD Primary Care Provider + Reason for Referral * Evaluate & Treat - Unlimited Visits (Within 10 days (routine)) - Authorized Specialty Diagnoses / Procedures Referred By Dory t Referred To Contact HOME CARE / Home Care Diagnoses Chronic low back pain with sciatica, sciatica laterality unspecified, unspecified back pain laterality Scott Montoya MD [address] [place] [address] Referral ID Status Reason Start Date Expiration Date Visits Requested Visits Authorized [id number] Authorized Specialty Services Required 08/06/[phone] Question Answer Referral Priority Within 10 days (routine) Where should this appointment be scheduled? Noemi Comments Documentation of Susy-ik-Uuxs Encounter Addendum Patient Name: Carmen Tyson I certify that this patient is under my care and that I, or a nurse practitioner or physician's urology physician assistant working with me, had a wlla-bq-hxef encounter that meets the physician ubur-cg-gwqe encounter requirements with this patient on: 03/13/23 The encounter with the patient was in whole, or in part, for the following medical condition, which is the primary reason for home health care (List medical condition): Chronic LBP, s/p spinal stimulator. Please eval for home PT, for ROM back, stretching, stim I certify that, based on my findings, the following services are medically necessary home health services: Physical Therapy Primary Care Physician to follow home care plan of care after discharge: Scott Montoya MD My clinical findings support the need for the above services because: chronic severe back pain Further, I certify that my clinical findings support that this patient is homebound-- Absences from home require considerable and taxing effort and are for medical reasons or oriental orthodox services or infrequently or of short duration when for other reason) because: Of her chronic pain Physician Signature: Scott Montoya MD Date of Signature: Physician Printed Name: Scott Montoya MD Reason for Visit * Reason Onset Date Comments Referral 08/06/2023 Encounter Details Date Type Department Care Team (Late st Contact Info) Description 08/06/2023 Telephone Pharmacy, [address] [place] [address] [facility] [place] [address] Referral Allergies Active Allergy Reactions Criticality Noted Date Comments Naproxen Sodium Bleeding High 11/29/2013 Pollen 12/03/2022 Seasonal Food (See Comments) Anaphylaxis High 04/20/2019 Hot peppers (oils) Kiwi Extract Anaphylaxis High 04/20/2019 documented as of this encounter (statuses as of 08/06/2023) Medications Medication Sig Dispensed Refills Start Date End Date Status ONETOUCH ULTRASOFT LANCETS MISCIndications:DM type 2, not at goal (HCC) check FS 6 times daily 4 Box 5 5 Active Insulin Syringe-Needle U-100 (BD INSULIN SYRINGE) 30G X 1/2" 0.5 ML MISC 3 daily injection in case of pump malfunction 100 Box Dosing Unit 3 6 Active insulin glargine (LANTUS SOLOSTAR) 100 UNIT/ML SOPN 50 units daily in case of pump malfunction 5 Pre-filled Pen Syringe Dosing Unit 3 6 Active B-D Ultrafine III, 5MM, Pen MISC Use as directed. 100 Pre-filled Pen Syringe Dosing Unit 3 6 Active Glucose Blood ([employer] CONTOUR NEXT TEST) STRP Use to test blood sugar up to 6 times per day. E11.9 These are the ONLY test strips patient can use with insulin pump 200 Strip 5 7 Active Insulin Pen Needle (BD PEN NEEDLE MINI U/F) 31G X 5 MMIndications:Type 2 diabetes mellitus with hemoglobin A1c goal of less than 8.0% (HCC) Use with Victoza once daily 100 Each 5 8 Active Insulin Infusion Pump (MINIMED 630G INSULIN PUMP) KITIndications:Type 2 diabetes mellitus with hemoglobin A1c goal of less than 8.0% (HCC) Use as directed. 0 8 Active CPAP every night at bedtime. 0 Active Glucagon Emergency 1 MG Injection Kit As directed 1 Kit 3 3 Active Atorvastatin Calcium 40 MG Oral Tablet (Lipitor)Indication s:Dyslipidemia, goal LDL below 100 Take 1 Tablet by mouth in the morning. 90 Tablet 3 3 Active Additional Information Patient taking differently:40 mg OralHS, Reported on 10/06/2022 Magnesium Oxide 400 (240 Mg) MG Oral Tablet (Mag-Ox)Indications :Hypomagnesemia TAKE 1 TABLET BY MOUTH EVERY DAY 90 Tablet 3 3 Active Escitalopram Oxalate 20 MG Oral Tablet (Lexapro) Take 1 Tablet by mouth in the morning. 90 Tablet 1 3 Active Dicyclomine HCl 20 MG Oral Tablet (Bentyl) Take 1 Tablet by mouth 2 times a day as needed for Pain or Cramping. 180 Tablet 3 3 Active Naloxone HCl 4 MG/0.1ML Nasal Liquid (Narcan Nasal)Indications:C ontrolled substance agreement signed,Chronic pain syndrome Administer 1 spray into 1 nostril for suspected opioid overdose. Seek immediate medical attention. [email or web address] 1 Each 3 3 Active hydrOXYzine HCl 25 MG Oral Tablet Take 1 tab during the day every 4-6 hours as needed for anxiety and take 2 tabs at bedtime as needed for anxiety 120 Tablet 3 3 Active Omeprazole 20 MG Oral Capsule Delayed Release (PriLOSEC)Indicatio ns:Gastroesophageal reflux disease without esophagitis TAKE 1 CAPSULE BY MOUTH TWICE A DAY 180 Capsule 1 3 Active Atenolol 100 MG Oral Tablet (Tenormin)Indicatio ns:Tachycardia TAKE 1 TABLET BY MOUTH TWICE A DAY 180 Tablet 3 3 Active Loratadine 10 MG Oral Tablet (Claritin)Indicatio ns:Allergic rhinitis TAKE 1 TABLET BY MOUTH IN THE MORNING FOR ALLERGIES. 90 Tablet 1 3 Active Metoclopramide HCl 5 MG Oral Tablet (Reglan) Take 1 Tablet by mouth in the morning and 1 Tablet at noon and 1 Tablet in the evening. Take before meals. If needed for nausea. 30 Tablet 0 3 Active Meclizine HCl 25 MG Oral Tablet (Antivert)Indicatio ns:Vertigo Take 1 Tablet by mouth 3 times a day as needed for Dizziness. 30 Tablet 1 3 Active Zoster Vac Recomb Adjuvanted 50 MCG/0.5ML Intramuscular Suspension Reconstituted (Shingrix)Indicatio ns:Need for vaccination for zoster Inject 0.5 mL into a large muscle now and repeat dose in 60 to 180 days 1 Each 1 3 Active Losartan Potassium 25 MG Oral Tablet (Cozaar)Indications :HTN, goal below 130/80 TAKE 1 TABLET BY MOUTH EVERYDAY AT BEDTIME 90 Tablet 1 3 Active Spironolactone 50 MG Oral Tablet (Aldactone)Indicati ons:Liver cirrhosis secondary to nonalcoholic steatohepatitis (MENDEZ) (HCC),Obesity, Class III, BMI 40-49.9 (morbid obesity) (HCC),Type 2 diabetes mellitus with hemoglobin A1c goal of less than 8.0% (HCC),HTN, goal below 130/80,Dyslipidemia , goal LDL below 100,Other ascites,Peripheral edema TAKE 1 TABLET BY MOUTH EVERY DAY IN THE MORNING 90 Tablet 1 3 Active Furosemide 40 MG Oral Tablet (Lasix)Indications: Other ascites,Cirrhosis of liver with ascites, unspecified hepatic cirrhosis type (HCC),Edema, unspecified type TAKE 1 TABLET BY MOUTH EVERY DAY IN THE MORNING 90 Tablet 1 3 Active Ondansetron 8 MG Oral Tablet Disintegrating (Zofran) Place 1 Tablet on tongue every 8 hours as needed for Nausea. dissolve on tongue. 90 Tablet 2 3 Active NovoLIN R ReliOn 100 UNIT/ML Injection Solution (insulin REGULAR human)Indications:T ype 2 diabetes mellitus with hemoglobin A1c goal of less than 8.0% ([facility]),DM type 2, not at goal ([facility]) INJECT UP TO 200 UNITS SUBCUTANEOSULY ONCE DAILY VIA PUMP 60 mL 0 3 Active Pregabalin 100 MG Oral Capsule (Lyrica)Indications :Bilateral low back pain with sciatica, sciatica laterality unspecified, unspecified chronicity TAKE 1 CAPSULE BY MOUTH EVERY DAY IN THE MORNING , AT NOON, AND BEFORE BEDTIME 270 Capsule 1 3 Active Baclofen 10 MG Oral Tablet (Lioresal)Indicatio ns:muscle spasms Take 1 Tablet by mouth 3 times a day as needed for Muscle spasms. 90 Tablet 5 4 Active Potassium Chloride ER 10 MEQ Oral Tablet Extended ReleaseIndications: HTN, goal below 130/80 TAKE 1 TABLET BY MOUTH TWICE A DAY WITH FOOD 180 Tablet 1 4 Active Albuterol Sulfate HFA 108 (90 Base) MCG/ACT Inhalation Aerosol Solution INHALE 2 PUFFS BY MOUTH EVERY 6 HOURS NEEDED FOR SHORTNESS OF BREATH 18 g 2 4 Active metFORMIN HCl 1000 MG Oral Tablet (Glucophage)Indicat ions:DM type 2, not at goal ([facility]) TAKE 1 TABLET BY MOUTH 2 TIMES A DAY WITH MORNING AND EVENING MEALS 180 Tablet 1 4 Active Buprenorphine 5 MCG/HR Transdermal Patch Weekly (Butrans) Place 1 Patch topically on the skin once a week. 4 Patch 0 4 Active Eszopiclone 2 MG Oral Tablet (Lunesta) Take 1 Tablet by mouth at bedtime. 30 Tablet 1 4 Active traZODone HCl 100 MG Oral Tablet (Desyrel) Take 1-2 Tablets by mouth at bedtime. 180 Tablet 1 4 Active Ozempic (1 MG/DOSE) 4 MG/3ML Subcutaneous Solution Pen-injector (Semaglutide (1 MG/DOSE))Indication s:Type 2 diabetes mellitus with hemoglobin A1c goal of less than 8.0% (HCC) Inject 1 mg under the skin once a week. Dose increase 3 mL 1 3 08/06/19 24 Discontinu ed(Medicat ion/Dose Changed) LORazepam 1 MG Oral Tablet (Ativan)Indications :Anxiety Take 1 by mouth 60 minutes prior to procedure. Take second by mouth 30 minutes prior to procedure as needed for anxiety. 2 Tablet 0 4 08/06/19 24 Discontinu ed(Medicat ion/Dose Changed) documented as of this encounter (statuses as of 08/06/2023) Active Problems Problem Noted Date Diagnosed Date [...] as of this encounter (statuses as of 08/06/2023) Resolved Problems Problem Noted Date Diagnosed Date [...] use. Vertigo 02/19/2016 03/14/2023 Breast cancer screening 11/30/201506/2018 Vaginitis 05/18/2015 05/21/2016 Vaginitis 10/18/2014 01/24/2015 Vaginitis [...] Reflux 07/27/2012 09/15/2014 Lymphadenitis, unspecified, except mesenteric 12/0710/06/2018 Pain of upper abdomen 03/03/20122018 Vaginitis 01/23/2012 [...] Overview: Per Obesity Taxonomy Coronary atherosclerosis of [place] coronary artery 09/15/2008 10/03/2008 Malaise and fatigue [...] as of this encounter (statuses as of 08/06/2023) Immunizations Name Administration Dates Next Due COVID-19 mRNA, LNP-s, No Pre serve, 2-Dose Series (ExactCost) 11/08/2020,10/11/2020 HEP A - Hepatitis A (Adult > 18 yrs) 04/11/2011, 09/20/2010 Hepatitis B, 20+ yrs 07/05/2015 Pneumococcal Conjugate Vacci ne, 20-valent ([id number]) 03/13/2023 Pneumococcal Polysaccharide PPV23 (Pneumovax) 02/19/2018,03/09/2007 Seasonal [...] as of this encounter Miscellaneous Notes * Addendum Note - Scott Montoya MD - 08/06/2023 9:49 PM ESTAddended by: SCOTT MONTOYA on: 08/06/2023 09:49 PM Modules accepted: Orders * Telephone Encounter - Scott Monotya MD - 08/06/2023 9:44 PM EST Signed--nursing-please fax to home health. (Or if [facility] takes Noemi Rutledge, can do separate PT referral for them) Cc: MTM * Telephone Encounter - Radha Mckeon [facility] - 08/06/2023 1:39 PM EST Hello, Wondering if possible home PT would be appropriate for Carmen? I think a lot of deconditioning is adding to her lower back pain? If so can you please place referral? Thank you, Radha Mckeon, Pharm D, BCACP Clinical Pharmacist 08/06/2023, 1:43 PM documented in this encounter Plan of Treatment Upcoming Encounters Date Type Department Care Team (Late st Contact Info) Description 08/14/2023 11:00 AM EST Office Visit Pharmacy, [address] [address] [place], [facility] [address] [place] [address] 08/19/2023 2:15 PM EDT Office Visit Hematology/Oncology [address] [place] [id number] Sunil Bourgeois MD [address] [facility] [place], [place] [address] 08/25/2023 9:30 AM EDT Telemedicine Psychiatry, [facility] [address] [facility] [place] [address] Rj Mai MD [address] [place] [address] 09/16/2023 1:20 PM EDT Office Visit Neurology [facility] [address] [facility] [place], [place] [address] Yesenia Wayne PA-C [address] [place] [address] 11/05/2023 1:00 PM EDT Telemedicine Pharmacy, Health system [address] [place] [address] [facility] [address] [place] [address] 12/03/2023 9:30 AM EDT Procedure Only [facility] [address] [place] [address] Aj Pruett DO [address] [place] [address] Scheduled Referrals Name Type Priority Associated Diagnoses Orde r Schedule HOME HEALTH REFERRAL OP Referral Within 10 days (routine) Chronic low back pain with sciatica, sciatica laterality unspecified, unspecified back pain laterality Ordered: 08/06/2023 Health Maintenance Due Date Last Done Comments [...] this encounter Medical Devices Implanted Type Area Educator Senior Clinical Device Identifier Shelf Expiration Date Model / Serial / Lot Neurostimul Intellis Adaptiv - [id number] - [id number] Implanted:Qty: 1 on 08/22/2022 by Rafia Small MD at OR [facility] N/A: Spine Lumbar [employer] 06/21/2023 [id number] / [id number] / Description:battery Medtronic Lead Kit 60 Cm Implanted:Qty: 1 on 08/22/2022 by Rafia Small MD at OR [facility] N/A: Spine Lumbar 02/01/2026 [id number] / / [id number] Medtronic Lead Kit 60cm Implanted:Qty: 1 on 08/22/2022 by Rafia Small MD at OR [facility] N/A: Spine Lumbar 03/21/2026 [id number] / / [id number] Envelope Tyrx Med Antibacteril - [id number] Implanted:Qty: 1 on 08/22/2022 by Rafia Small MD at OR [facility] N/A: Spine Lumbar [employer] 03/10/2023 [id number] / / [id number] documented as of this encounter Visit Diagnoses Diagnosis Chronic low back pain with sciatica, sciatica laterality unspecified, unspecified back pain laterality- Primary documented in this encounter Advance Directives Latest Code Status on File Code Status Date Activated Date Inactivated Comments Full Code 04/20/2019 11:06 AM 04/21/2019 6:32 PM Th is order reflects the patients wishes and were consensually agreed upon. Question Answer Comments Discussion of Advance Directives occurred with: Patient Does the patient have a Living Will? No Does the patient have Health Care Power of Fancy Stitcher? No Code Status History Code Status Date Activated Date Inactivated Comments Full Code 01/21/2011 12:12 PM 01/22/2011 8:48 PM This order reflects the patients wishes and were consensually agreed upon. Question Answer Comments Discussion of Advance Directives occurred with: Patient Does the patient have a Living Will? No Does the patient have Health Care Power of Fancy Stitcher? No Care Teams Central Sterile Supply Technician Relationship Specialty Start Date End Date Scott Montoya MD [address] [address] PCP - General Family Medicine 08/03/18 documented as of this encounter
--- OUTSIDE RECORDS SUMMARY | 2023-08-12 09:17 | External Medical Summary | Summary of Care ---
Author Name Unknown Organization [facility] Address [address] [place] [address] Phone [phone] Care Team Providers Care Sustainability Consultant Name Role Phone Scott Montoya MD Primary Care Provider + Reason for Referral * Evaluate & Treat - Unlimited Visits (Within 10 days (routine)) - Authorized Specialty Diagnoses / Procedures Referred By Dory t Referred To Contact HOME CARE / Home Care Diagnoses Chronic low back pain with sciatica, sciatica laterality unspecified, unspecified back pain laterality Scott Montoya MD [address] [place] [address] Referral ID Status Reason Start Date Expiration Date Visits Requested Visits Authorized [id number] Authorized Specialty Services Required 08/06/2023 999 [id number] Question Answer Referral Priority Within 10 days (routine) Where should this appointment be scheduled? Noemi Comments Documentation of [id number]-[id number] Encounter Addendum Patient Name: Carmen Tyson I certify that this patient is under my care and that I, or a nurse practitioner or physician's preschool assistant working with me, had a [id number] encounter that meets the physician [id number] encounter requirements with this patient on: 03/13/23 [...] effort and are for medical reasons or anabaptist services or infrequently or of short duration when for other reason) because: Of her chronic pain Physician Signature: Scott Montoya MD Date of Signature: Physician Printed Name: Scott Montoya MD Reason for Visit * Reason Onset Date Comments Referral 08/06/2023 Encounter Details Date Type Department Care Team (Late st Contact Info) Description 08/06/2023 Telephone Pharmacy, [address] [place] [address] [facility] [place] [address] Referral Allergies Active Allergy Reactions Criticality Noted Date Comments Naproxen Sodium Bleeding High 11/29/2013 Pollen 12/03/2022 Seasonal Food (See Comments) Anaphylaxis High 04/20/2019 Hot peppers (oils) Kiwi Extract Anaphylaxis High 04/20/2019 documented as of this encounter (statuses as of 08/11/2023) Medications Medication Sig Dispensed Refills Start Date [...] 100 Pre-filled Pen Syringe Dosing Unit 3 12/31/19 16 Active Glucose Blood (Solar3D CONTOUR NEXT TEST) STRP Use to test [...] Insulin Infusion Pump (MINIMED 630G INSULIN PUMP) KITIndications:Typ e 2 diabetes mellitus with hemoglobin A1c goal of less than 8.0% (HCC) Use as directed. 0 07/30/19 18 Active CPAP every night at bedtime. 0 Active Glucagon Emergency 1 MG Injection Kit As directed 1 Kit 3 09/05/19 23 Active Atorvastatin Calcium 40 MG Oral Tablet (Lipitor)Indicatio ns:Dyslipidemia, goal LDL below 100 Take 1 Tablet by mouth in the morning. 90 Tablet 3 09/09/19 23 Active Additional Information Patient taking differently:40 mg OralHS, Reported on 10/06/2022 Magnesium Oxide 400 (240 Mg) MG Oral Tablet (Mag-Ox)Indication s:Hypomagnesemia TAKE 1 TABLET BY MOUTH EVERY DAY 90 Tablet 3 10/06/19 23 Active Escitalopram Oxalate 20 MG Oral Tablet (Lexapro) Take 1 Tablet by mouth in the morning. 90 Tablet 1 11/05/19 23 Active Dicyclomine HCl 20 MG Oral Tablet (Bentyl) Take 1 Tablet by mouth 2 times a day as needed for Pain or Cramping. 180 Tablet 3 11/15/19 23 Active Naloxone HCl 4 MG/0.1ML Nasal Liquid (Narcan Nasal)Indications: Controlled substance agreement signed,Chronic pain syndrome Administer 1 spray into 1 nostril for suspected opioid overdose. Seek immediate medical attention. [email or web address] 1 Each 3 11/28/19 Active hydrOXYzine HCl 25 MG Oral Tablet Take 1 tab during the day every 4-6 hours as needed for anxiety and take 2 tabs at bedtime as needed for anxiety 120 Tablet 3 02/03/20 23 Active Omeprazole 20 MG Oral Capsule Delayed Release (PriLOSEC)Indicati ons:Gastroesophage al reflux disease without esophagitis TAKE 1 CAPSULE BY MOUTH TWICE A DAY 180 Capsule 1 03/05/20 23 Active Atenolol 100 MG Oral Tablet (Tenormin)Indicati ons:Tachycardia TAKE 1 TABLET BY MOUTH TWICE A DAY 180 Tablet 3 04/09/20 23 Active Loratadine 10 MG Oral Tablet (Claritin)Indicati ons:Allergic rhinitis TAKE 1 TABLET BY MOUTH IN THE MORNING FOR ALLERGIES. 90 Tablet 1 04/13/20 23 Active Metoclopramide HCl 5 MG Oral Tablet (Reglan) Take 1 Tablet by mouth in the morning and 1 Tablet at noon and 1 Tablet in the evening. Take before meals. If needed for nausea. 30 Tablet 0 04/15/20 23 Active Meclizine HCl 25 MG Oral Tablet (Antivert)Indicati ons:Vertigo Take 1 Tablet by mouth 3 times a day as needed for Dizziness. 30 Tablet 1 04/15/20 23 Active Zoster Vac Recomb Adjuvanted 50 MCG/0.5ML Intramuscular Suspension Reconstituted (Shingrix)Indicati ons:Need for vaccination for zoster Inject 0.5 mL into a large muscle now and repeat dose in 60 to 180 days 1 Each 1 04/16/20 23 Active Losartan Potassium 25 MG Oral Tablet (Cozaar)Indication s:HTN, goal below 130/80 TAKE 1 TABLET BY MOUTH EVERYDAY AT BEDTIME 90 Tablet 1 04/17/20 23 Active Spironolactone 50 MG Oral Tablet (Aldactone)Indicat ions:Liver cirrhosis secondary to nonalcoholic steatohepatitis (MENDEZ) (HCC),Obesity, Class III, BMI 40-49.9 (morbid obesity) (HCC),Type 2 diabetes mellitus with hemoglobin A1c goal of less than 8.0% (HCC),HTN, goal below 130/80,Dyslipidemi a, goal LDL below 100,Other ascites,Peripheral edema TAKE 1 TABLET BY MOUTH EVERY DAY IN THE MORNING 90 Tablet 1 04/20/20 23 Active Furosemide 40 MG Oral Tablet (Lasix)Indications :Other ascites,Cirrhosis of liver with ascites, unspecified hepatic cirrhosis type (HCC),Edema, unspecified type TAKE 1 TABLET BY MOUTH EVERY DAY IN THE MORNING 90 Tablet 1 04/17/20 23 Active NovoLIN R ReliOn 100 UNIT/ML Injection Solution (insulin REGULAR human)Indications: Type 2 diabetes mellitus with hemoglobin A1c goal of less than 8.0% ([facility]),DM type 2, not at goal ([facility]) INJECT UP TO 200 UNITS SUBCUTANEOSULY ONCE DAILY VIA PUMP 60 mL 0 05/05/20 23 Active Pregabalin 100 MG Oral Capsule (Lyrica)Indication s:Bilateral low back pain with sciatica, sciatica laterality unspecified, unspecified chronicity TAKE 1 CAPSULE BY MOUTH EVERY DAY IN THE MORNING , AT NOON, AND BEFORE BEDTIME 270 Capsule 1 06/05/20 23 Active Baclofen 10 MG Oral Tablet (Lioresal)Indicati ons:muscle spasms Take 1 Tablet by mouth 3 times a day as needed for Muscle spasms. 90 Tablet 5 06/30/19 24 Active Potassium Chloride ER 10 MEQ Oral Tablet Extended ReleaseIndications :HTN, goal below 130/80 TAKE 1 TABLET BY MOUTH TWICE A DAY WITH FOOD 180 Tablet 1 07/17/19 24 Active Albuterol Sulfate HFA 108 (90 Base) MCG/ACT Inhalation Aerosol Solution INHALE 2 PUFFS BY MOUTH EVERY 6 HOURS NEEDED FOR SHORTNESS OF BREATH 18 g 2 07/17/19 24 Active metFORMIN HCl 1000 MG Oral Tablet (Glucophage)Indica tions:DM type 2, not at goal ([facility]) TAKE 1 TABLET BY MOUTH 2 TIMES [...] 180 Tablet 1 07/29/19 24 Active Ozempic (1 MG/DOSE) 4 MG/3ML Subcutaneous Solution Pen-injector (Semaglutide (1 MG/DOSE))Indicatio ns:Type 2 diabetes mellitus with hemoglobin A1c goal of less than 8.0% (HCC) Inject 1 mg under the skin once a week. Dose increase 3 mL 1 11/06/19 23 024 Discontinued(Me dication/Dose Changed) Ondansetron 8 MG Oral Tablet Disintegrating (Zofran) Place 1 Tablet on tongue every 8 hours as needed for Nausea. dissolve on tongue. 90 Tablet 2 04/18/20 23 024 Discontinued LORazepam 1 MG Oral Tablet (Ativan)Indication s:Anxiety Take 1 by mouth 60 minutes prior to procedure. Take second by mouth 30 minutes prior to procedure as needed for anxiety. 2 Tablet 0 07/01/19 24 024 Discontinued(Me dication/Dose Changed) documented as of this encounter (statuses as of 08/11/2023) Active Problems Problem Noted Date Diagnosed Date [...] as of this encounter (statuses as of 08/11/2023) Resolved Problems Problem Noted Date Diagnosed Date Resolved Date Protein-calorie malnutrition 10/03/2020 07/22/2021 Pneumonia due to COVID-19 virus 09/10/2020 02/17/2022 Diabetes mellitus with background retinopathy 02/28/20 20 03/14/2020 Kidney disease, chronic, sta ge III (GFR [...] use. Vertigo 02/19/2016 03/14/2023 Breast cancer screening 11/30/20150 06/2018 Vaginitis 05/18/2015 05/21/2016 Vaginitis 10/18/2014 01/24/2015 [...] Overview: Per Obesity Taxonomy Coronary atherosclerosis of [place] coronary artery 09/15/2008 10/03/2008 Malaise and fatigue [...] as of this encounter (statuses as of 08/11/2023) Immunizations Name Administration Dates Next Due COVID-19 mRNA, LNP-s, No Pre serve, 2-Dose Series (yWorld) 11/08/2020,10/11/2020 HEP A - Hepatitis A (Adult > 18 yrs) 04/11/2011, 09/20/2010 Hepatitis B, 20+ yrs 07/05/2015 Pneumococcal Conjugate Vacci ne, 20-valent ([id number]) 03/13/2023 Pneumococcal Polysaccharide PPV23 (Pneumovax) 02/19/2018,03/09/2007 Seasonal [...] accepted: Orders * Telephone Encounter - Scott Montoya MD - 08/06/2023 9:44 PM EST Signed--nursing-please fax to home health. (Or if [facility] takes [facility]emi Rutledge, can do separate PT referral for them) Cc: MTM * Telephone Encounter - Radha Mckeon [facility] - 08/06/2023 1:39 PM EST [...] 08/14/2023 11:00 AM EST Office Visit Pharmacy, [address] [address] [place], [facility] [address] [place] [address] 08/19/2023 2:15 PM EDT Office Visit Hematology/Oncology [address] [place], [place] [id number] Sunil Bourgeois MD [address] [place] [address] [place] [address] 08/19/2023 3:00 PM EDT Immunization/Injection Hematology/Oncology Treatment, [place] [address] [facility], [place] [phone] Nurse, Med [address] [place], [place] [address]corey Lu [place], [place] [address] 08/25/2023 9:30 AM EDT Telemedicine Psychiatry, [facility] [address] [facility] [place], [place] [address] Rj [facility] [address] [facility] [address] 09/16/2023 1:20 PM EDT Office Visit Neurology [facility] [place] [address] [facility] [place] [address] Yesenia Wayne PA-C [address] [facility] [place] [address] 11/05/2023 1:00 PM EDT Telemedicine Pharmacy, [facility] [address] [place] [address] [facility] [address] [place] [address] 12/03/2023 9:30 AM EDT Procedure Only Endoscopy, [facility] [address] [place] [address] Aj Pruett DO [address] [place] [address] Scheduled Referrals Name Type Priority Associated Diagnoses Orde r Schedule HOME HEALTH REFERRAL OP Referral Within 10 days (routine) Chronic low back pain with sciatica, sciatica laterality unspecified, unspecified back pain laterality Ordered: 08/06/2023 Health Maintenance Due Date Last Done Comments HPV/Co-Test 2002 Cervical Cancer Screening 04/12/2018 Pap Smear 04/12/2018 04/12/2015, 1110/2014, 09/28/2008, Additional history exists Mammogram 05/07/2019 05/07/2018, 01/21/2016 COLONOSCOPY-EVERY 5 YRS AGES 18-100 06/27/2020 06/27/2015, 06/27/2015, 06/06/2010, Additional history exists Diabetic Eye Exam 01/16/2023 01/16/2022, , 12/14/2019, Additional history exists COVID-19 Vaccine (2022-24 season) 2023 11/08/2020, 10/11/2020 B-12 06/11/2023 06/11/2022, [...] this encounter Medical Devices Implanted Type Area Gasoline Plant Operator Device Identifier Shelf Expiration Date Model / Serial / Lot Neurostimul Intellis Adaptiv - [id number] - [id number] Implanted:Qty: 1 on 08/22/2022 by Rafia Small MD at OR [facility] N/A: Spine Lumbar [employer] 06/21/2023 [id number] / [id number] / Description:battery Medtronic Lead Kit 60 Cm Implanted:Qty: 1 on 08/22/2022 by Rafia Small MD at OR [facility] N/A: Spine Lumbar 02/01/2026 [id number] / / [id number] Medtronic Lead Kit 60cm Implanted:Qty: 1 on 08/22/2022 by Rafia Small MD at OR [facility] N/A: Spine Lumbar 03/21/2026 [id number] / / [id number] Envelope Tyrx Med Antibacteril - [id number] Implanted:Qty: 1 on 08/22/2022 by Rafia Small MD at OR [facility] N/A: Spine Lumbar [employer] 03/10/2023 [id number] / / [id number] documented as of this encounter Visit Diagnoses [...] the patient have Health Care Power of Fleet Mechanic? No Code Status History Code Status Date Activated Date Inactivated Comments Full Code 01/21/2011 12:12 PM 01/22/2011 8:48 PM This order reflects the patients wishes and were consensually agreed upon. Question Answer Comments Discussion of Advance Directives occurred with: Patient Does the patient have a Living Will? No Does the patient have Health Care Power of Fleet Mechanic? No Care Teams Sustainability Consultant Relationship Specialty Start Date End Date Scott Montoya MD [address] [place] [address] PCP - General Family Medicine 08/03/18 documented as of this encounter
--- OUTSIDE RECORDS SUMMARY | 2023-08-12 09:18 | External Medical Summary | Summary of Care ---
Author Name Unknown Organization [facility] Address [address] [facility] [place] [address] Phone [phone] Care Team Providers Care Hand Alterations Tailor Name Role Phone cSott Weldon MD Primary Care Provider + Reason for Visit * Reason Onset Date Comments Appointment 08/03/2023 Encounter Details Date Type Department Care Team (Late st Contact Info) Description 08/03/2023 Telephone Radiology [address] [place] [address] Trinity Lopez, RT (R) Appointment Allergies Active Allergy Reactions Criticality Noted Date Comments Naproxen Sodium Bleeding High 11/29/2013 Pollen 12/03/2022 Seasonal Food (See Comments) Anaphylaxis High 04/20/2019 Hot peppers (oils) Kiwi Extract Anaphylaxis High 04/20/2019 documented as of this encounter (statuses as of 08/03/2023) Medications Medication Sig Dispensed Refills Start Date [...] Dosing Unit 3 6 Active Glucose Blood (SYLVIA CONTOUR NEXT TEST) [...] Each 5 8 Active Insulin Infusion Pump (MINIMInteractive Supercomputing 630G INSULIN PUMP) KITIndications:Type 2 diabetes mellitus with hemoglobin A1c goal of less than 8.0% (HCC) Use as directed. 0 8 Active CPAP every night at bedtime. 0 Active Glucagon Emergency 1 MG Injection Kit As directed 1 Kit 3 3 Active Atorvastatin Calcium 40 MG Oral Tablet (Lipitor)Indications :Dyslipidemia, goal LDL below 100 Take 1 Tablet by mouth in the morning. 90 Tablet 3 3 Active Additional Information Patient taking differently:40 mg OralHS, Reported on 10/06/2022 Magnesium Oxide 400 (240 Mg) MG Oral Tablet (Mag-Ox)Indications: Hypomagnesemia TAKE 1 TABLET BY MOUTH EVERY DAY 90 Tablet 3 3 Active Escitalopram Oxalate 20 MG Oral Tablet (Lexapro) Take 1 Tablet by mouth in the morning. 90 Tablet 1 3 Active Ozempic (1 MG/DOSE) 4 MG/3ML Subcutaneous Solution Pen-injector (Semaglutide (1 MG/DOSE))Indications :Type 2 diabetes mellitus with hemoglobin A1c goal of less than 8.0% (HCC) Inject 1 mg under the skin once a week. Dose increase 3 mL 1 3 Active Dicyclomine HCl 20 MG Oral Tablet (Bentyl) Take 1 Tablet by mouth 2 times a day as needed for Pain or Cramping. 180 Tablet 3 3 Active Naloxone HCl 4 MG/0.1ML Nasal Liquid (Narcan Nasal)Indications:Co ntrolled substance agreement signed,Chronic pain syndrome Administer 1 spray into 1 nostril for suspected opioid overdose. Seek immediate medical attention. [email or web address] 1 Each 3 3 Active hydrOXYzine HCl 25 MG Oral Tablet Take 1 tab during the day every 4-6 hours as needed for anxiety and take 2 tabs at bedtime as needed for anxiety 120 Tablet 3 3 Active Omeprazole 20 MG Oral Capsule Delayed Release (PriLOSEC)Indication s:Gastroesophageal reflux disease without esophagitis TAKE 1 CAPSULE BY MOUTH TWICE A DAY 180 Capsule 1 3 Active Atenolol 100 MG Oral Tablet (Tenormin)Indication s:Tachycardia TAKE 1 TABLET BY MOUTH TWICE A DAY 180 Tablet 3 3 Active Loratadine 10 MG Oral Tablet (Claritin)Indication s:Allergic rhinitis TAKE 1 TABLET BY MOUTH IN THE MORNING FOR ALLERGIES. 90 Tablet 1 3 Active Metoclopramide HCl 5 MG Oral Tablet (Reglan) Take 1 Tablet by mouth in the morning and 1 Tablet at noon and 1 Tablet in the evening. Take before meals. If needed for nausea. 30 Tablet 0 3 Active Meclizine HCl 25 MG Oral Tablet (Antivert)Indication s:Vertigo Take 1 Tablet by mouth 3 times a day as needed for Dizziness. 30 Tablet 1 3 Active Zoster Vac Recomb Adjuvanted 50 MCG/0.5ML Intramuscular Suspension Reconstituted (Shingrix)Indication s:Need for vaccination for zoster Inject 0.5 mL into a large muscle now and repeat dose in 60 to 180 days 1 Each 1 3 Active Losartan Potassium 25 MG Oral Tablet (Cozaar)Indications: HTN, goal below 130/80 TAKE 1 TABLET BY MOUTH EVERYDAY AT BEDTIME 90 Tablet 1 3 Active Spironolactone 50 MG Oral Tablet (Aldactone)Indicatio ns:Liver cirrhosis secondary to nonalcoholic steatohepatitis (MENDEZ) (HCC),Obesity, Class III, BMI 40-49.9 (morbid obesity) (HCC),Type 2 diabetes mellitus with hemoglobin A1c goal of less than 8.0% (HCC),HTN, goal below 130/80,Dyslipidemia, goal LDL below 100,Other ascites,Peripheral edema TAKE 1 TABLET BY MOUTH EVERY DAY IN THE MORNING 90 Tablet 1 3 Active Furosemide 40 MG Oral Tablet (Lasix)Indications:O ther ascites,Cirrhosis of liver with ascites, unspecified hepatic cirrhosis type (HCC),Edema, unspecified type TAKE 1 TABLET BY MOUTH EVERY DAY IN THE MORNING 90 Tablet 1 3 Active Ondansetron 8 MG Oral Tablet Disintegrating (Zofran) Place 1 Tablet on tongue every 8 hours as needed for Nausea. dissolve on tongue. 90 Tablet 2 3 Active NovoLIN R ReliOn 100 UNIT/ML Injection Solution (insulin REGULAR human)Indications:Ty pe 2 diabetes mellitus with hemoglobin A1c goal of less than 8.0% ([facility]),DM type 2, not at goal ([facility]) INJECT UP TO 200 UNITS SUBCUTANEOSULY ONCE DAILY VIA PUMP 60 mL 0 3 Active Pregabalin 100 MG Oral Capsule (Lyrica)Indications: Bilateral low back pain with sciatica, sciatica laterality unspecified, unspecified chronicity TAKE 1 CAPSULE BY MOUTH EVERY DAY IN THE MORNING , AT NOON, AND BEFORE BEDTIME 270 Capsule 1 3 Active Baclofen 10 MG Oral Tablet (Lioresal)Indication s:muscle spasms Take 1 Tablet by mouth 3 times a day as needed for Muscle spasms. 90 Tablet 5 4 Active LORazepam 1 MG Oral Tablet (Ativan)Indications: Anxiety Take 1 by mouth 60 minutes prior to procedure. Take second by mouth 30 minutes prior to procedure as needed for anxiety. 2 Tablet 0 4 Active Potassium Chloride ER 10 MEQ Oral Tablet Extended ReleaseIndications:H TN, goal below 130/80 TAKE 1 TABLET BY MOUTH TWICE A DAY WITH FOOD 180 Tablet 1 4 Active Albuterol Sulfate HFA 108 (90 Base) MCG/ACT Inhalation Aerosol Solution INHALE 2 PUFFS BY MOUTH EVERY 6 HOURS NEEDED FOR SHORTNESS OF BREATH 18 g 2 4 Active metFORMIN HCl 1000 MG Oral Tablet (Glucophage)Indicati ons:DM type 2, not at goal ([facility]) TAKE 1 TABLET BY MOUTH 2 TIMES [...] at bedtime. 180 Tablet 1 4 Active documented as of this encounter (statuses as of 08/03/2023) Active Problems Problem Noted Date Diagnosed Date [...] shot/SI injection consent signed Family friend-Tony. Son Ricky-thuding fall 2017. Also son Hieu. Sim--2019 melanoma. . 12/24 [...] as of this encounter (statuses as of 08/03/2023) Resolved Problems Problem Noted Date Diagnosed Date [...] site 03/19/2009 02/25/2010 Abnormal weight gain 02/06/2009 08/17/2 012 Bipolar I disorder, most rec ent episode depressed, moderate 12/18/2008 08/19/2012 Tachycardia 11/01/2008 08/19/2012 ACUTE STRESS 11/01/2008 08/19/2012 Migraine variant, intractable 09/26/2008 08/19/2012 Backache 09/26/2008 08/19/2012 Overweight (BMI 25.0-29.9) 09/26/2008 0 09/03/2009 Overview: Per Obesity Taxonomy Coronary atherosclerosis of [place] coronary artery 09/15/2008 10/03/2008 Malaise and fatigue [...] as of this encounter (statuses as of 08/03/2023) Immunizations Name Administration Dates Next Due COVID-19 mRNA, LNP-s, No Pre serve, 2-Dose Series (Pfizer) 11/08/2020,10/11/2020 HEP A - Hepatitis A (Adult > 18 yrs) 04/11/2011, 09/20/2010 Hepatitis B, 20+ yrs 07/05/2015 Pneumococcal Conjugate Vacci ne, 20-valent ([id number]) 03/13/2023 Pneumococcal Polysaccharide PPV23 (Pneumovax) 02/19/2018,03/09/2007 Seasonal Influenza, PF, 6 M & above, IM , (FluLaval or Fluzone) 03/13/2023,03/01/2021,02/28/2020,03/09,02/19/2018,03/02/2017 Seasonal Influenza, Quadriva lent, No Preserve, IM 03/20/2016,07/05/2015 Seasonal Influenza, Split, I IV3, With Preserve, Inj 06/22/2014,03/03/2013,04/09/2012,04/11,02/25/2010,02/19/2009,05/17/2008 ,03/09/2007 TDAP (age 10 and older)(Boostrix) 08/05/2018 TDAP (age 11 and older)(Adacel) 05/15/2008 documented as of this encounter Social History [...] encounter Miscellaneous Notes * Telephone Encounter - Trinity Lopez RT (R) - 08/03/2023 9:30 AM EST Name: Carmen Tyson Do you have any of the following: Pacemaker, stents, heart valves, aneurysm clips? No Have you ever worked with metal or have you ever gotten metal in your eyes? No Have you had a colonoscopy in the last 30 days? No On dialysis? No Do you have any dermals or body piercing's? No or ? Do you wear an insulin pump or diabetic monitor? Yes-will need removed Pt has neurostimulator- no falls since 11/26/22 when stimulator was last x-rayed. Pt aware to have device fully charged and bring remote and maintenance worker house trailer along. RT Liliana (R) documented in this encounter Plan of Treatment Upcoming Encounters Date Type Department Care Team (Late st Contact Info) Description 08/05/2023 8:45 AM EST Imaging Radiology [facility] [place] [address] 08/06/2023 1:00 PM EST Telemedicine Pharmacy, [address] [place] [address] [place] [address] 08/14/2023 11:00 AM EST Office Visit Pharmacy, [place] [address] [address] [facility] [place] [address] [place] [address] [address] [facility], [place] [address] 08/19/2023 2:15 PM EDT Office Visit Hematology/Oncology [facility] [address] [facility] [place] [phone] Sunil Bourgeois MD [address] [facility] [place] [address] 09/16/2023 1:20 PM EDT Office Visit Neurology [facility] [place] [address] [facility] [place] [address] Yesenia Wayne PA-C [address] [facility] [place] [address] 12/03/2023 9:30 AM EDT Procedure Only Endoscopy, [facility] [place] [address] [place] [address] Aj Pruett DO [address] [place] [address] Health Maintenance Due Date Last Done Comments HPV/Co-Test 2002 Cervical Cancer Screening 04/12/2018 Pap Smear 04/12/2018 04/12/2015, 10/2014, 09/28/2008, Additional history exists Mammogram 05/07/2019 05/07/2018, 01/21/2016 COLONOSCOPY-EVERY 5 YRS AGES 18-100 06/27/2020 06/27/2015, 06/27/2015, 06/06/2010, Additional history exists Diabetic Eye Exam 01/16/2023 01/16/2022, , 12/14/2019, Additional history exists COVID-19 Vaccine (3 - season) 2023 11/08/2020, 10/11/2020 B-12 06/11/2023 06/11/2022, [...] this encounter Medical Devices Implanted Type Area Post Office Clerk Device Identifier Shelf Expiration Date Model / Serial / Lot Neurostimul Intellis Adaptiv - [id number] - [id number] Implanted:Qty: 1 on 08/22/2022 by Rafia Small MD at [facility] N/A: Spine Lumbar [employer] 06/21/2023 [id number] / [id number] / Description:battery Medtronic Lead Kit 60 Cm Implanted:Qty: 1 on 08/22/2022 by Rafia Small MD at [facility] N/A: Spine Lumbar 02/01/2026 [id number] / / [id number] Medtronic Lead Kit 60cm Implanted:Qty: 1 on 08/22/2022 by Rafia Small MD at [facility] N/A: Spine Lumbar 03/21/2026 [id number] / / [id number] Envelope Tyrx Med Antibacteril - [id number] Implanted:Qty: 1 on 08/22/2022 by Rafia Small MD at [facility] N/A: Spine Lumbar [employer] 03/10/2023 [id number] / / [id number] documented as of this encounter Advance Directives [...] the patient have Health Care Power of Lease Purchase Driver? No Code Status History Code Status Date Activated Date Inactivated Comments Full Code 01/21/2011 12:12 PM 01/22/2011 8:48 PM This order reflects the patients wishes and were consensually agreed upon. Question Answer Comments Discussion of Advance Directives occurred with: Patient Does the patient have a Living Will? No Does the patient have Health Care Power of Lease Purchase Driver? No Care Teams Hand Alterations Tailor Relationship Specialty Start Date End Date Scott Weldon MD [address] [place] [address] PCP - General Family Medicine 08/03/18 documented as of this encounter
--- OUTSIDE RECORDS SUMMARY | 2023-08-12 09:18 | External Medical Summary | Summary of Care ---
Author Name Unknown Organization [facility] Address [address] [facility] [place] [address] Phone [phone] Care Team Providers Care Gis Geographer Name Role Phone Scott Weldon MD Primary Care Provider + Reason for Visit * Reason Onset Date Comments Referral 08/06/2023 Encounter Details Date Type Department Care Team (Late st Contact Info) Description 08/06/2023 Telephone Pharmacy, [facility] [address] [facility] [place] [address] Radha Mckeon, [facility] [address] [facility] [place] [address] Referral Allergies Active Allergy Reactions Criticality Noted [...] suspected opioid overdose. Seek immediate medical attention. [email or web address] 1 Each 3 3 Active [...] hemoglobin A1c goal of less than 8.0% ([facility]),DM type 2, not at goal ([facility]) INJECT UP TO 200 UNITS SUBCUTANEOSULY ONCE [...] (Glucophage)Indicati ons:DM type 2, not at goal ([facility]) TAKE 1 TABLET BY MOUTH 2 TIMES [...] Encounter for venous access device care 12/23/19 20 Severe obesity (BMI 35.0-39.9) with comorbidity 11/07/2019 [...] Overview: Per Obesity Taxonomy Coronary atherosclerosis of [place] coronary artery 09/15/2008 10/03/2008 Malaise and fatigue [...] mRNA, LNP-s, No Pre serve, 2-Dose Series (CADsurf) 11/08/2020,10/11/2020 HEP A - Hepatitis A (Adult > 18 yrs) 04/11/2011, 09/20/2010 Hepatitis B, 20+ yrs 07/05/2015 Pneumococcal Conjugate Vacci ne, 20-valent ([id number]) 03/13/2023 Pneumococcal Polysaccharide PPV23 (Pneumovax) 02/19/2018,03/09/2007 Seasonal [...] encounter Miscellaneous Notes * Telephone Encounter - Radha Mckeon RPh - 08/06/2023 1:39 PM EST Taz, Wondering if possible home PT would be [...] 08/14/2023 11:00 AM EST Office Visit Pharmacy, [place] [address] [place] [address] [place] [address] [place] [address] 08/19/2023 2:15 PM EDT Office Visit Hematology/Oncology [facility] [address] [facility] [place] [phone] Sunil Bourgeois MD [address] [facility] [place] [address] 08/25/2023 9:30 AM EDT Telemedicine Psychiatry, [facility] [address] [facility] [place] [address] Rj Mai MD [address] [place] [address] 09/16/2023 1:20 PM EDT Office Visit Neurology [facility] [address] [facility] [place] [address] Yesenia Wayne PA-C [address] [facility] [place] [address] 11/05/2023 1:00 PM EDT Telemedicine Pharmacy, [facility] [address] [place] [address] [facility] [address] [place] [address] 12/03/2023 9:30 AM EDT Procedure Only Endoscopy, [facility] [address] [place] [address] Aj Pruett DO [address] [place] [address] Health Maintenance Due Date Last Done Comments HPV/Co-Test 2002 Cervical Cancer Screening 04/12/2018 Pap Smear 04/12/2018 04/12/2015, 10/2014, 09/28/2008, Additional history exists Mammogram 05/07/2019 05/07/2018, 01/21/2016 COLONOSCOPY-EVERY 5 YRS AGES 18-100 06/27/2020 06/27/2015, 06/27/2015, 06/06/2010, Additional history exists Diabetic Eye Exam 01/16/2023 01/16/2022, , 12/14/2019, Additional history exists COVID-19 Vaccine (3 - 2022- season) 2023 11/08/2020, 10/11/2020 B-12 06/11/2023 06/11/2022, [...] this encounter Medical Devices Implanted Type Area Patent Agent Device Identifier Shelf Expiration Date Model / Serial / Lot Neurostimul Intellis Adaptiv - [id number] - [id number] Implanted:Qty: 1 on 08/22/2022 by Rafia Small MD at OR [facility] N/A: Spine Lumbar [employer] 06/21/2023 [id number] / [id number] / Description:battery Medtronic Lead Kit 60 Cm Implanted:Qty: 1 on 08/22/2022 by Rafia Small MD at OR [facility] N/A: Spine Lumbar 02/01/2026 [id number] / / [id number] Medtronic Lead Kit 60cm Implanted:Qty: 1 on 08/22/2022 by Rafia Small MD at OR [facility] N/A: Spine Lumbar 03/21/2026 [id number] / / [id number] Envelope Tyrx Med Antibacteril - [id number] Implanted:Qty: 1 on 08/22/2022 by Rafia Small MD at OR [facility] N/A: Spine Lumbar [employer] 03/10/2023 [id number] / / [id number] documented as of this encounter Advance Directives [...] the patient have Health Care Power of Enterer? No Code Status History Code Status Date Activated Date Inactivated Comments Full Code 01/21/2011 12:12 PM 01/22/2011 8:48 PM This order reflects the patients wishes and were consensually agreed upon. Question Answer Comments Discussion of Advance Directives occurred with: Patient Does the patient have a Living Will? No Does the patient have Health Care Power of Enterer? No Care Teams Gis Geographer Relationship Specialty Start Date End Date Scott Weldon MD [address] [place] [address] PCP - General Family Medicine 08/03/18 documented as of this encounter
--- OUTSIDE RECORDS SUMMARY | 2023-08-12 09:18 | External Medical Summary | Summary of Care ---
Author Name Unknown Organization [facility] Address [address] [facility] [place] [address] Phone [phone] Care Team Providers Care Aerial Gunner Name Role Phone Scott Weldon MD Primary Care Provider + Encounter Details Date Type Department Care Team (Late st Contact Info) Description 08/06/2023 1:00 PM EST Telemedicine Pharmacy, [facility] [address] [facility] [address] [facility] [address] [facility] [phone] Type 2 diabetes mellitus with hemoglobin A1c goal of less than 8.0% ([facility])* Allergies Active Allergy Reactions Criticality Noted Date Comments Naproxen Sodium Bleeding High 11/29/2013 Pollen 12/03/2022 Seasonal Food (See Comments) Anaphylaxis High 04/20/2019 Hot peppers (oils) Kiwi Extract Anaphylaxis High 04/20/2019 documented as of this encounter (statuses as of 08/06/2023) Medications Medication Sig Dispensed Refills Start Date End Date Status ONETOUCH ULTRASOFT LANCETS MISCIndications:DM type 2, not at goal ([facility]) check FS 6 times daily 4 Box [...] suspected opioid overdose. Seek immediate medical attention. [email or web address]?[email or web address] [email or web address] 1 Each 3 3 Active [...] hemoglobin A1c goal of less than 8.0% ([facility]),DM type 2, not at goal ([facility]) INJECT UP TO 200 UNITS [...] (Glucophage)Indicati ons:DM type 2, not at goal ([facility]) TAKE 1 TABLET BY MOUTH [...] Overview: Per Obesity Taxonomy Coronary atherosclerosis of [place] coronary artery 09/15/2008 10/03/2008 Malaise and fatigue [...] mRNA, LNP-s, No Pre serve, 2-Dose Series (Miaoyushang) 11/08/2020,10/11/2020 HEP A - Hepatitis A (Adult > 18 yrs) 04/11/2011, 09/20/2010 Hepatitis B, 20+ yrs 07/05/2015 Pneumococcal Conjugate Vacci ne, 20-valent ([id number]) 03/13/2023 Pneumococcal Polysaccharide PPV23 (Pneumovax) 02/19/2018,03/09/2007 Seasonal [...] No 04/20/2019 documented as of this encounter Progress Notes * Radha Mckeon, [facility] - 08/06/2023 12:49 PM EST After connecting to the patient via telephone, the patient was identified by name and date of . Patient was then informed that this was a telephone call only visit. The patient agreed to participate. Visit Disposition: Routine follow-up Total call duration was 12 minutes. Medication Therapy Disease Management Clinic - Chronic Pain Management Progress Note 08/06/2023 Carmen Tyson, identified by name and date of , is a 53 year old female being seen for chronic pain management/education. Patient presents to pain MTM clinic for return visit. Referring Physician: Dr. Weldon Medication Agreement: on file Patient's Pharmacy: [facility] CHIEF COMPLAINT: RUQ Pain and back pain (radiating from shoulder blade down) Interval History: Notes her lower back is hurting Notes the SCS is really helping her legs but not so much as with her back pain Notes also pain between her shoulder blades and up to neck Notes doing well with medications but notes does not want to change medications Pain described as: aching and dull, radiating, numbness Sleep: taking sleeping pills Palliating factors: heat/ice, position Exacerbating factors: activity or lying on area Other interventions tried: injections, possible surgery-consult to see, PT Worst time of day for pain: night time Imaging: see imaging tab Psych History: depression/anxiety, bipolar, ptsd 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 Cardiac Hx: stroke Renal Hx: stones Hepatic Hx: cirrhosis and liver cancer Other: none Illicit Substance/Rx/Alcohol Abuse: no CONTROLLED SUBSTANCE COMPLIANCE MONITORING: Opioid Risk Assessment Tool (BRQ): Total score: 0-2 points (Low risk) Daily MME: ~ 30 PDMP Reviewed (08/06/23): apprpriate Urine Toxicology Screen: 03/11/22-appropriate Pill Count: N/a Functional Goal: QOL Current Pain Level (08/06/23): worsening lower back pain Pain Level (05/07/23): stable Pain Level (02/12/23): stable Pain Level (11/27/22): average 5-6 (notes improvement from last time) Pain Level (10/16/22): improved, average 5-6 Pain Level (09/04/22): stable, increase with acute Pain Level (07/03/22): improvement Pain Level (06/05/22): stable Pain Level (03/20/22): worse Pain Level (02/06/22): Worse Pain Level (11/07/21): same Pain Level (09/12/2021): same Pain Level (07/11/21): improved Pain Level (06/05/2021): same Pain Level (04/04/2021): slightly increased Pain Level (12/04/20): stable Pain Level (10/18/2020): much worse Pain Level (05/30/20):stable Pain Level (02/29/20): 7-8/10 = stable Pain Level (01/18/20): Worse due to anemia Pain level (12/07/19):stable Pain Level (11/08/19):stable Pain Level (10/11/19):improved Pain Level (09/13/2019): discomforting Past Pain Medications: Opioids: Tylenol w/ codeine, hydrocodone, oxycodone, tramadol, hydromorphone NSAIDS: none Muscle relaxants: flexeril, tizanidine Antidepressants: amitriptyline, duloxetine (unsure why D/c) Anticonvulsants: gabapentin Current Pain Medications: Baclofen 10 mg BID prn- notes she is unsure if it helps Lyrica 100 mg TID Butrans 5 mcg/hr every week *lunesta, trazodone, escitalopram, hydroxyzine Creatinine Clearance: Serum creatinine: 1.3 mg/dL (H) 07/23/23 1200 Estimated creatinine clearance: 62.9 mL/min (A) Creatinine Results: Recent Labs Units 07/23/23 1200 12/03/22 1543 06/11/22 0948 CREATININE - [facility] mg/dL 1.3* 1.1* 1.1* Hepatic Function (ALT): Recent Labs Units 12/03/22 1543 03/11/22 1329 11/08/21 0849 ALT - [facility] U/L 25 23 21 Comprehensive Metabolic Panel Results: Results for orders placed or performed in visit on 12/03/22 COMPREHENSIVE METABOLIC PANEL Result Value Ref Range BUN 17 6 - 20 mg/dL Creatinine 1.1 (H) 0.5 - 1.0 mg/dL Estimated Glomerular Filtration Rate 65 >=60 mL/min Sodium 141 135 - 146 mmol/L Potassium 4.4 3.5 - 5.1 mmol/L Chloride 102 98 - 107 mmol/L CO2 29 22 - 32 mmol/L Anion Gap 10 7 - 15 mmol/L Glucose 68 (L) 70 - 120 mg/dL Albumin 4.2 3.8 - 5.0 g/dL AST 61 (H) 10 - 35 U/L Alkaline Phosphatase 186 (H) 35 - 130 U/L Bilirubin, Total 0.6 <=1.2 mg/dL Calcium 9.1 8.4 - 10.2 mg/dL Protein 7.1 6.0 - 8.3 g/dL ALT 25 10 - 35 U/L ASSESSMENT: Patient aware MTM is a clinical pharmacist visit, with focus on medication options for current diagnoses referred by Primary Care Provider for review and optimization. Focus of this visit is Medication Optimization. Current concerns: continued chronic pain Adherence: Reviewed current regimen, patient is adherent to regimen. Treatment options: will continue same medication, recommending possible in home PT? If affordable Treatment concerns: increased lower back pain to discuss with SCS managers Education provided: discussed PT help with strengthening and off setting pain I have evaluated the patient for the appropriateness and necessity of opioid pain medications. Patient has been educated towards the benefits and risks of opioid medications, including dependence, addiction, and overdose. Patient is aware of the requirements set out in the medication use agreement,including the need for routine urine drug screening. No red flags for abuse or misuse have been exhibited. PLAN: Continue current pain medications Consider home PT Medication changes: no change Pain Medications: Baclofen 10 mg BID prn Lyrica 100 mg TID Butrans 5 mcg/hr every week *lunesta, trazodone, escitalopram, hydroxyzine Patient verbalized understanding of the plan. Contact clinic with any issues. FOLLOW UP: Return to clinic in 12 weeks 11/05/2023 Radha Mckeon RP Clinical Pharmacist - [facility] 08/06/2023, 12:49 PM documented in this encounter Plan of Treatment Upcoming Encounters Date Type Department Care Team (Late st Contact Info) Description 08/14/2023 11:00 AM EST Office Visit Pharmacy, [address] [address] [facility] [address] [place] [id number] 08/19/2023 2:15 PM EDT Office Visit Hematology/Oncology [facility] [place] [address] [place] [phone] Sunil Bourgeois MD [address] [facility] [address] [place] [address] 08/25/2023 9:30 AM EDT Telemedicine Psychiatry, [facility] [address] [facility] [place] [address] Rj Mai MD [address] [place] [address] 09/16/2023 1:20 PM EDT Office Visit Neurology [facility] [place] [address] [place] [address] Yesenia Wayne PA-C [address] [place] [address] 11/05/2023 1:00 PM EDT Telemedicine Pharmacy, [facility] [address] [place] [address] [facility] [address] [place] [address] 12/03/2023 9:30 AM EDT Procedure Only Endoscopy, [facility] [address] [place] [address] Aj Pruett DO [address] [place] [address] Health Maintenance Due Date Last Done Comments [...] Additional history exists Lipid Panel 07/23/2028 07/23/2023, 1009/2021, 12/12/2019, Additional history exists DTaP,Tdap,and Td Vaccines [...] this encounter Medical Devices Implanted Type Area Branch Sales Manager Device Identifier Shelf Expiration Date Model / Serial / Lot Neurostimul Intellis Adaptiv - [id number] - [id number] Implanted:Qty: 1 on 08/22/2022 by Rafia Small MD at OR [facility] N/A: Spine Lumbar [employer] 06/21/2023 [id number] / [id number] / Description:battery Medtronic Lead Kit 60 Cm Implanted:Qty: 1 on 08/22/2022 by Rafia Small MD at OR [facility] N/A: Spine Lumbar 02/01/2026 [id number] / / [id number] Medtronic Lead Kit 60cm Implanted:Qty: 1 on 08/22/2022 by Rafia Small MD at OR [facility] N/A: Spine Lumbar 03/21/2026 [id number] / / [id number] Envelope Tyrx Med Antibacteril - [id number] Implanted:Qty: 1 on 08/22/2022 by Rafia Small MD at OR [facility] N/A: Spine Lumbar [employer] 03/10/2023 [id number] / / [id number] documented as of this encounter Visit Diagnoses Diagnosis Type 2 diabetes mellitus with hemoglobin A1c goal of less than 8.0% ([facility])- Primary documented in this encounter Advance Directives [...] the patient have Health Care Power of Sports Manager? No Code Status History Code Status Date Activated Date Inactivated Comments Full Code 01/21/2011 12:12 PM 01/22/2011 8:48 PM This order reflects the patients wishes and were consensually agreed upon. Question Answer Comments Discussion of Advance Directives occurred with: Patient Does the patient have a Living Will? No Does the patient have Health Care Power of Sports Manager? No Care Teams Aerial Gunner Relationship Specialty Start Date End Date Scott Weldon MD [address] [facility] [place] [address] PCP - General Family Medicine 08/03/18 documented as of this encounter
--- OUTSIDE RECORDS SUMMARY | 2023-08-12 09:18 | External Medical Summary | Summary of Care ---
Author Name Unknown Organization [facility] Address [address] [facility] [place] [address] Phone [phone] Care Team Providers Care Embedded Engineer Name Role Phone Scott Weldon MD Primary Care Provider + Encounter Details Date Type Department Care Team (Late st Contact Info) Description 08/05/2023 Documentation Radiology [address] [place] [address] Trinity Lopez, RT (R) Allergies Active Allergy Reactions Criticality Noted Date Comments Naproxen Sodium Bleeding High 11/29/2013 Pollen 12/03/2022 Seasonal Food (See Comments) Anaphylaxis High 04/20/2019 Hot peppers (oils) Kiwi Extract Anaphylaxis High 04/20/2019 documented as of this encounter (statuses as of 08/05/2023) Medications Medication Sig Dispensed Refills Start Date [...] Each 5 8 Active Insulin Infusion Pump (MINIMYecuris 630G INSULIN PUMP) KITIndications:Type 2 diabetes mellitus [...] suspected opioid overdose. Seek immediate medical attention. 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 03/09/2019/0 07/2019 Malignant neoplasm of liver 02/04/2019 07/10/2020 Obesity, [...] Overview: Per Obesity Taxonomy Coronary atherosclerosis of [place] coronary artery 09/15/2008 10/03/2008 Malaise and fatigue [...] as of this encounter (statuses as of 08/05/2023) Immunizations Name Administration Dates Next Due COVID-19 mRNA, LNP-s, No Pre serve, 2-Dose Series (Pfizer) 11/08/2020,10/11/2020 HEP A - Hepatitis A (Adult > 18 yrs) 04/11/2011, 09/20/2010 Hepatitis B, 20+ yrs 07/05/2015 Pneumococcal Conjugate Vacci ne, 20-valent ([id number]) 03/13/2023 Pneumococcal Polysaccharide PPV23 (Pneumovax) 02/19/2018,03/09/2007 Seasonal [...] as of this encounter Progress Notes * Trinity Lopez RT (R) - 08/05/2023 9:33 AM EST *pt has Medtronic Intellis Adaptiv Stimulator-Model # [id number], Leads x2- [id number]. Device was placed in MRI mode prior to scanning at 8:20am. Pt was monitored throughout scan and felt no warmth, burningor pulling. Device was successfully placed back into normal stimulation mode at 9:16am* documented in this encounter Plan of Treatment Upcoming Encounters Date Type Department Care Team (Late st Contact Info) Description 08/06/2023 1:00 PM EST Telemedicine Pharmacy, [facility] [address] [facility] [place] [address] [facility] [address] [facility] [place] [address] 08/14/2023 11:00 AM EST Office Visit Pharmacy, [place] [address] [facility] [address] [facility] [address] [address] 08/19/2023 2:15 PM EDT Office Visit Hematology/Oncology [facility] [address] [place] [phone] Sunil Bourgeois MD [address] [facility] [place] [address] 09/16/2023 1:20 PM EDT Office Visit Neurology [facility] [place] [address] [place] [address] Yesenia Wayne PA-C [address] [facility] [place] [address] 12/03/2023 9:30 AM EDT Procedure Only Endoscopy, [facility] [address] [place] [address] Aj Pruett DO [address] [place] [address] Health Maintenance Due Date Last Done Comments HPV/Co-Test 2002 Cervical Cancer Screening 04/12/2018 Pap Smear 04/12/2018 04/12/2015, 10/2014, 09/28/2008, Additional history exists Mammogram 05/07/2019 05/07/2018, 01/21/2016 COLONOSCOPY-EVERY 5 YRS AGES 18-100 06/27/2020 06/27/2015, 06/27/2015, 06/06/2010, Additional history exists Diabetic Eye Exam 01/16/2023 01/16/2022, , 12/14/2019, Additional history exists COVID-19 Vaccine ( season) 2023 11/08/2020, 10/11/2020 B-12 06/11/2023 06/11/2022, 0 12/2020, 07/05/2019, Additional history exists Zoster Vaccines [...] this encounter Medical Devices Implanted Type Area Instrument Technologist Device Identifier Shelf Expiration Date Model / Serial / Lot Neurostimul Intellis Adaptiv - [id number] - [id number] Implanted:Qty: 1 on 08/22/2022 by Rafia Small MD at OR [facility] N/A: Spine Lumbar [employer] 06/21/2023 [id number] / [id number] / Description:battery Medtronic Lead Kit 60 Cm Implanted:Qty: 1 on 08/22/2022 by Rafia Small MD at OR [facility] N/A: Spine Lumbar 02/01/2026 [id number] / / [id number] Medtronic Lead Kit 60cm Implanted:Qty: 1 on 08/22/2022 by Rafia Small MD at OR [facility] N/A: Spine Lumbar 03/21/2026 [id number] / / [id number] Envelope Tyrx Med Antibacteril - [id number] Implanted:Qty: 1 on 08/22/2022 by Rafia Small MD at OR [facility] N/A: Spine Lumbar [employer] 03/10/2023 [id number] / / [id number] documented as of this encounter Advance Directives [...] the patient have Health Care Power of Embedded Developer? No Code Status History Code Status Date Activated Date Inactivated Comments Full Code 01/21/2011 12:12 PM 01/22/2011 8:48 PM This order reflects the patients wishes and were consensually agreed upon. Question Answer Comments Discussion of Advance Directives occurred with: Patient Does the patient have a Living Will? No Does the patient have Health Care Power of Embedded Developer? No Care Teams Embedded Engineer Relationship Specialty Start Date End Date Scott Weldon MD [address] [facility] [place] [address] PCP - General Family Medicine 08/03/18 documented as of this encounter
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
--- OUTSIDE RECORDS SUMMARY | 2023-08-12 09:18 | External Medical Summary | Summary of Care ---
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 Seek immediate medical attention. [email or web address]?[email or web address] 1 Each 3 3 Active hydrOXYzine HCl [...] hemoglobin A1c goal of less than 8.0% ([facility]),DM type 2, not at goal ([facility]) INJECT UP TO 200 UNITS [...] (Glucophage)Indicat ions:DM type 2, not at goal ([facility]) TAKE 1 TABLET BY MOUTH [...] bedtime. 180 Tablet 1 4 Active Ozempic (2 MG/DOSE) 8 MG/3ML Subcutaneous Solution Pen-injector (Semaglutide (2 MG/DOSE)) Take 2 mg weekly E11.9 0 4 Active Ozempic (1 MG/DOSE) 4 MG/3ML [...] Overview: Per Obesity Taxonomy Coronary atherosclerosis of [place] coronary artery 09/15/2008 10/03/2008 Malaise and fatigue [...] mRNA, LNP-s, No Pre serve, 2-Dose Series (NewComLink) 11/08/2020,10/11/2020 HEP A - Hepatitis A (Adult > 18 yrs) 04/11/2011, 09/20/2010 Hepatitis B, 20+ yrs 07/05/2015 Pneumococcal Conjugate Vacci ne, 20-valent ([id number]) 03/13/2023 Pneumococcal Polysaccharide PPV23 (Pneumovax) 02/19/2018,03/09/2007 Seasonal [...] this encounter Progress Notes * Radha Mckeon, [facility] - 08/06/2023 3:28 PM EST Carmen Tyson is a 53 year old female. Objective: Review of patient's allergies indicates: Allergen Reactions Aleve [Naproxen Sodium] Bleeding Food (See Comments) Anaphylaxis Hot peppers (oils) Kiwi Extract Anaphylaxis Environmental [Pollen] Seasonal Current Outpatient Medications - WARNING: List may be incomplete due to filtering Medication Sig Dispense Refill Ozempic (2 MG/DOSE) 8 MG/3ML Subcutaneous Solution Pen-injector (Semaglutide (2 MG/DOSE)) Take 2 mgweekly E11.9 Eszopiclone 2 MG Oral Tablet (Lunesta) Take 1 Tablet by mouth at bedtime. 30 Tablet 1 traZODone HCl 100 MG Oral Tablet (Desyrel) Take 1-2 Tablets by mouth at bedtime. 180 Tablet 1 Buprenorphine 5 MCG/HR Transdermal Patch Weekly (Butrans) Place 1 Patch topically on the skin once a week. 4 Patch 0 Albuterol Sulfate HFA 108 (90 Base) MCG/ACT Inhalation Aerosol Solution INHALE 2 PUFFS BY MOUTH EVERY 6 HOURS NEEDED FOR SHORTNESS OF BREATH 18 g 2 metFORMIN HCl 1000 MG Oral Tablet (Glucophage) TAKE 1 TABLET BY MOUTH 2 TIMES A DAY WITH MORNING AND EVENING MEALS 180 Tablet 1 Potassium Chloride ER 10 MEQ Oral Tablet Extended Release TAKE 1 TABLET BY MOUTH TWICE A DAY WITH FOOD 180 Tablet 1 Baclofen 10 MG Oral Tablet (Lioresal) Take 1 Tablet by mouth 3 times a day as needed for Muscle spasms. 90 Tablet 5 Pregabalin 100 MG Oral Capsule (Lyrica) TAKE 1 CAPSULE BY MOUTH EVERY DAY IN THE MORNING , AT NOON,AND BEFORE BEDTIME 270 Capsule 1 NovoLIN R ReliOn 100 UNIT/ML Injection Solution (insulin REGULAR human) INJECT UP TO 200 UNITS SUBCUTANEOSULY ONCE DAILY VIA PUMP 60 mL 0 Spironolactone 50 MG Oral Tablet (Aldactone) TAKE 1 TABLET BY MOUTH EVERY DAY IN THE MORNING 90 Tablet 1 Ondansetron 8 MG Oral Tablet Disintegrating (Zofran) Place 1 Tablet on tongue every 8 hours as needed for Nausea. dissolve on tongue. 90 Tablet 2 Furosemide 40 MG Oral Tablet (Lasix) TAKE 1 TABLET BY MOUTH EVERY DAY IN THE MORNING 90 Tablet 1 Losartan Potassium 25 MG Oral Tablet (Cozaar) TAKE 1 TABLET BY MOUTH EVERYDAY AT BEDTIME 90 Tablet 1 Zoster Vac Recomb Adjuvanted 50 MCG/0.5ML Intramuscular Suspension Reconstituted (Shingrix) Inject 0.5 mL into a large muscle now and repeat dose in 60 to 180 days 1 Each 1 Meclizine HCl 25 MG Oral Tablet (Antivert) Take 1 Tablet by mouth 3 times a day as needed for Dizziness. 30 Tablet 1 Metoclopramide HCl 5 MG Oral Tablet (Reglan) Take 1 Tablet by mouth in the morning and 1 Tablet at noon and 1 Tablet in the evening. Take before meals. If needed for nausea. 30 Tablet 0 Loratadine 10 MG Oral Tablet (Claritin) TAKE 1 TABLET BY MOUTH IN THE MORNING FOR ALLERGIES. 90 Tablet 1 Atenolol 100 MG Oral Tablet (Tenormin) TAKE 1 TABLET BY MOUTH TWICE A DAY 180 Tablet 3 Omeprazole 20 MG Oral Capsule Delayed Release (PriLOSEC) TAKE 1 CAPSULE BY MOUTH TWICE A DAY 180 Capsule 1 hydrOXYzine HCl 25 MG Oral Tablet Take 1 tab during the day every 4-6 hours as needed for anxiety and take 2 tabs at bedtime as needed for anxiety 120 Tablet 3 Naloxone HCl 4 MG/0.1ML Nasal Liquid (Narcan Nasal) Administer 1 spray into 1 nostril for suspectedopioid overdose. Seek immediate medical attention. [email or web address]?v=[email or web address] 1 Each 3 Dicyclomine HCl 20 MG Oral Tablet (Bentyl) Take 1 Tablet by mouth 2 times a day as needed for Pain or Cramping. 180 Tablet 3 Escitalopram Oxalate 20 MG Oral Tablet (Lexapro) Take 1 Tablet by mouth in the morning. 90 Tablet 1 Magnesium Oxide 400 (240 Mg) MG Oral Tablet (Mag-Ox) TAKE 1 TABLET BY MOUTH EVERY DAY 90 Tablet 3 Atorvastatin Calcium 40 MG Oral Tablet (Lipitor) Take 1 Tablet by mouth in the morning. (Patient taking differently: Take 1 Tablet by mouth at bedtime.) 90 Tablet 3 Glucagon Emergency 1 MG Injection Kit As directed 1 Kit 3 CPAP every night at bedtime. Insulin Infusion Pump (MINIMKeko 630G INSULIN PUMP) KIT Use as directed. Insulin Pen Needle (BD PEN NEEDLE MINI U/F) 31G X 5 MM Use with Victoza once daily 100 Each 5 Glucose Blood (SYLVIA CONTOUR NEXT TEST) STRP Use to test blood sugar up to 6 times per day. E11.9 These are the ONLY test strips patient can use with insulin pump 200 Strip 5 B-D Ultrafine III, 5MM, Pen MISC Use as directed. 100 Pre-filled Pen Syringe Dosing Unit 3 insulin glargine (LANTUS SOLOSTAR) 100 UNIT/ML SOPN 50 units daily in case of pump malfunction 5 Pre-filled Pen Syringe Dosing Unit 3 Insulin Syringe-Needle U-100 (BD INSULIN SYRINGE) 30G X 1/2" 0.5 ML MISC 3 daily injection in case of pump malfunction 100 Box Dosing Unit 3 ONETOUCH ULTRASOFT LANCETS MISC check FS 6 times daily 4 Box 5 Immunization History Administered Date(s) Administered COVID-19 mRNA, LNP-s, No Preserve, 2-Dose Series (NewComLink) 10/11/2020, 11/08/2020 HEP A - Hepatitis A (Adult > 18 yrs) 09/20/2010, 04/11/2011 Hepatitis B, 20+ yrs 07/05/2015 Ketorolac Tromethamin Inj 03/17/2008, 08/29/2008, 09/26/2008, 10/03/2008 Pneumococcal Conjugate Vaccine, 20-valent ([id number]) 03/13/2023 Pneumococcal Polysaccharide PPV23 (Pneumovax) 03/09/2007, 02/19/2018 Seasonal Influenza, PF, 6 M & above, IM , (FluLaval or Fluzone) 03/02/2017, 02/19/2018, 03/09/2019, 02/28/2020, 03/01/2021, 03/13/2023 Seasonal Influenza, Quadrivalent, No Preserve, IM 07/05/2015, 03/20/2016 Seasonal Influenza, Split, IIV3, With Preserve, Inj 03/09/2007, 05/17/2008, 02/19/2009, 02/25/2010,04/11/2011, 04/09/2012, 03/03/2013, 06/22/2014 TDAP (age 10 and older)(Boostrix) 08/05/2018 TDAP (age 11 and older)(Adacel) 05/15/2008 Zoster Vaccine Recombinant (Shingrix) 04/19/2023 TMR Interventions TMR Drug Therapy - Naloxone (Opioid Therapy): BUPRENORPHIN DIS 5MCG/HR TMR Patient Education - Safe Medication Use (Opioid Therapy): BUPRENORPHIN DIS 5MCG/HR;BUPRENORPHINE,5 MCG/HR,EA Incomplete Medication Therapy Recommendations No medication therapy recommendations to display Completed Medication Therapy Recommendations Chronic pain syndrome Current Medication: Buprenorphine 5 MCG/HR Transdermal Patch Weekly (Butrans) Rationale: Patient Education Recommendation: Continue to Monitor Note: Patient follows with pain clinic for routine monitoring of pain medications including Butrans Current Medication: Naloxone HCl 4 MG/0.1ML Nasal Liquid (Narcan Nasal) Rationale: Patient Education Recommendation: Provide Education Note: Discussed rational for naltrexone prescription/product at home and when appropriate to use ifneeded Assessment & Plan Indication, effectiveness, safety and convenience of her medications were reviewed today. The patient's medical conditions were assessed, evaluated, and deemed meeting goals of drug therapy, with thefollowing exceptions. Additional Notes: Summary Time Spent: 1-15 min Supervising pharmacist who provided the service: Yimi Roman Information Who was the recipient of the CMR service: beneficiary Language Template for the Patient Takeaway: Pashto I attest that I have reviewed and updated the patient's conditions, allergies, and medications to the best of my ability. Radha Mckeon RPh 08/06/2023, 3:28 PM documented in this encounter Miscellaneous Notes * MTM Personal Medication List - Radha Mckeon RPh - 08/06/2023 3:23 PM EST Medication How I take it Why I use it Prescriber Albuterol Sulfate HFA 108 (90 Base) MCG/ACT Inhalation Aerosol Solution INHALE 2 PUFFS BY MOUTH EVERY 6 HOURS NEEDED FOR SHORTNESS OF BREATH Breathing Scott Weldon MD Atenolol 100 MG Oral Tablet (Tenormin) TAKE 1 TABLET BY MOUTH TWICE A DAY Tachycardia Scott Weldon MD Atorvastatin Calcium 40 MG Oral Tablet (Lipitor) Take 1 Tablet by mouth in the morning. CholesterolPazulma Weldon MD Baclofen 10 MG Oral Tablet (Lioresal) Take 1 Tablet by mouth 3 times a day as needed for Muscle spasms. Back spasm Scott Weldon MD Buprenorphine 5 MCG/HR Transdermal Patch Weekly (Butrans) Place 1 Patch topically on the skin once a week. Pain Scott Weldon MD Dicyclomine HCl 20 MG Oral Tablet (Bentyl) Take 1 Tablet by mouth 2 times a day as needed for Pain or Cramping. Stomach pain/cramping Scott Weldon MD Escitalopram Oxalate 20 MG Oral Tablet (Lexapro) Take 1 Tablet by mouth in the morning. Depression Rj Mai MD Eszopiclone 2 MG Oral Tablet (Lunesta) Take 1 Tablet by mouth at bedtime. Sleep Rj Mai MD Furosemide 40 MG Oral Tablet (Lasix) TAKE 1 TABLET BY MOUTH EVERY DAY IN THE MORNING Swelling Scott Weldon MD hydrOXYzine HCl 25 MG Oral Tablet Take 1 tablet during the day every 4-6 hours as needed for anxiety and take 2 tablets at bedtime as needed for anxiety Anxiety Rj Mai MD insulin glargine (LANTUS SOLOSTAR) 100 UNIT/ML SOPN 50 units daily in case of pump malfunction Insulin Winnies MD Cosmo Loratadine 10 MG Oral Tablet (Claritin) TAKE 1 TABLET BY MOUTH IN THE MORNING FOR ALLERGIES. Allergies Scott Weldon MD Losartan Potassium 25 MG Oral Tablet (Cozaar) TAKE 1 TABLET BY MOUTH EVERYDAY AT BEDTIME High bloodpressure Scott Weldon MD Magnesium Oxide 400 (240 Mg) MG Oral Tablet (Mag-Ox) TAKE 1 TABLET BY MOUTH EVERY DAY Hypomagnesemia Scott Weldon MD Meclizine HCl 25 MG Oral Tablet (Antivert) Take 1 Tablet by mouth 3 times a day as needed for Dizziness. Vertigo Scott Weldon MD metFORMIN HCl 1000 MG Oral Tablet (Glucophage) TAKE 1 TABLET BY MOUTH 2 TIMES A DAY WITH MORNING AND EVENING MEALS Diabetes Scott Weldon MD Metoclopramide HCl 5 MG Oral Tablet (Reglan) Take 1 Tablet by mouth in the morning and 1 Tablet at noon and 1 Tablet in the evening. Take before meals. If needed for nausea. Nausea Scott Weldon MD Naloxone HCl 4 MG/0.1ML Nasal Liquid (Narcan Nasal) Administer 1 spray into 1 nostril for suspectedopioid overdose. Seek immediate medical attention. [email or web address] Reversal of opioids Scott Weldon MD NovoLIN R ReliOn 100 UNIT/ML Injection Solution (insulin REGULAR human) INJECT UP TO 200 UNITS SUBCUTANEOSULY ONCE DAILY VIA PUMP Diabetes Scott Weldon MD Omeprazole 20 MG Oral Capsule Delayed Release (PriLOSEC) TAKE 1 CAPSULE BY MOUTH TWICE A DAY Heartburn Scott Weldon MD Ondansetron 8 MG Oral Tablet Disintegrating (Zofran) Place 1 Tablet on tongue every 8 hours as needed for Nausea. dissolve on tongue. Nausea Scott Weldon MD Ozempic (2 MG/DOSE) 8 MG/3ML Subcutaneous Solution Pen-injector (Semaglutide (2 MG/DOSE)) Take 2 mgweekly Diabetes Potassium Chloride ER 10 MEQ Oral Tablet Extended Release TAKE 1 TABLET BY MOUTH TWICE A DAY WITH FOOD Supplement Scott Weldon MD Pregabalin 100 MG Oral Capsule (Lyrica) TAKE 1 CAPSULE BY MOUTH EVERY DAY IN THE MORNING , AT NOON,AND BEFORE BEDTIME Pain Zulema Caro MD Spironolactone 50 MG Oral Tablet (Aldactone) TAKE 1 TABLET BY MOUTH EVERY DAY IN THE MORNING Liver Charlee Fields MD traZODone HCl 100 MG Oral Tablet (Desyrel) Take 1-2 Tablets by mouth at bedtime. Sleep Rj Mai MD * MTM To-Do-List - Radha Mckeon RPh - 08/06/2023 3:22 PM EST Images from the original note were not included. What we talked about: What I should do: The importance of taking your medication as prescribed Your medicine works best when taken as prescribed. It can be hard to remember to take daily medications. Consider making it a part of your daily routine. Pair taking your medication with something you do every day, like brushing your teeth or eating a meal. Consider setting daily alarms to help remind yourself when it is time to take your medicine. Using a pill box can also help you organize your medicines. Pill boxes allow you to fill each day slot with your daily medicine and help you track when your next dose is due. What we talked about: What I should do: Needing additional monitoring Continue to monitor continue to follow with pain clinic as scheduled What we talked about: What I should do: Needs Education Education: continue to keep naltrexone on hand for needed in case of an emergency documented in this encounter Plan of Treatment Upcoming Encounters Date Type Department Care Team (Late st Contact Info) Description 08/14/2023 11:00 AM EST [facility] [place] [address] [facility] [address] [place] [phone] [facility], [place] [address] 08/19/2023 2:15 PM EDT Office Visit Hematology/Oncology [facility] [address] [place] [phone] Sunil Bourgeois MD [address] [place] [address] 08/25/2023 9:30 AM EDT Telemedicine Psychiatry, [facility] [address] [place] [address] Rj Mai MD [address] [place] [address] 09/16/2023 1:20 PM EDT Office Visit Neurology [facility] [address] [place] [address] Yesenia Wayne PA-C [address] [facility] [place] [address] 11/05/2023 1:00 PM EDT Telemedicine Pharmacy, [facility] [address] [place] [address] [facility] [address] [place] [address] 12/03/2023 9:30 AM EDT Procedure Only Endoscopy, [facility] [address] [place] [address] Aj Pruett DO [address] [place] [address] Health Maintenance Due Date Last Done Comments [...] this encounter Medical Devices Implanted Type Area Teacher Vocational Training Device Identifier Shelf Expiration Date Model / Serial / Lot Neurostimul Intellis Adaptiv - [id number] - [id number] Implanted:Qty: 1 on 08/22/2022 by Rafia Small MD at OR [facility] N/A: Spine Lumbar [employer] 06/21/2023 [id number] / [id number] / Description:battery Medtronic Lead Kit 60 Cm Implanted:Qty: 1 on 08/22/2022 by Rafia Small MD at OR [facility] N/A: Spine Lumbar 02/01/2026 [id number] / / [id number] Medtronic Lead Kit 60cm Implanted:Qty: 1 on 08/22/2022 by Rafia Small MD at OR [facility] N/A: Spine Lumbar 03/21/2026 [id number] / / [id number] Envelope Tyrx Med Antibacteril - [id number] Implanted:Qty: 1 on 08/22/2022 by Rafia Small MD at OR [facility] N/A: Spine Lumbar [employer] 03/10/2023 [id number] / / [id number] documented as of this encounter Advance Directives [...] the patient have Health Care Power of Scanning Coordinator? No Code Status History Code Status Date Activated Date Inactivated Comments Full Code 01/21/2011 12:12 PM 01/22/2011 8:48 PM This order reflects the patients wishes and were consensually agreed upon. Question Answer Comments Discussion of Advance Directives occurred with: Patient Does the patient have a Living Will? No Does the patient have Health Care Power of Scanning Coordinator? 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
--- OUTSIDE RECORDS SUMMARY | 2023-08-12 09:19 | External Medical Summary | Summary of Care ---
Author Name Unknown Organization [facility] Address [address] [facility] [place] [address] Phone [phone] Care Team Providers Care Calculating Machine Mechanic Name Role Phone Scott Weldon MD Primary Care Provider + Reason for Visit * Reason Onset Date Comments Health Maintenance 07/31/2023 Encounter Details Date Type Department Care Team (Late st Contact Info) Description 07/31/2023 Telephone Family Practice [facility] [address] [place] [phone] Scott Weldon MD [address] [place] [address] Health Maintenance Allergies Active Allergy Reactions Criticality Noted Date Comments Naproxen Sodium Bleeding High 11/29/2013 Pollen 12/03/2022 Seasonal Food (See Comments) Anaphylaxis High 04/20/2019 Hot peppers (oils) Kiwi Extract Anaphylaxis High 04/20/2019 documented as of this encounter (statuses as of 07/31/2023) Medications Medication Sig Dispensed Refills Start Date [...] suspected opioid overdose. Seek immediate medical attention. [email or web address]://[email or web address]/[email or web address]?v=v26cDa [email or web address] 1 Each 3 3 Active [...] hemoglobin A1c goal of less than 8.0% ([facility]),DM type 2, not at goal ([facility]) INJECT UP TO 200 UNITS [...] (Glucophage)Indicati ons:DM type 2, not at goal ([facility]) TAKE 1 TABLET BY MOUTH [...] as of this encounter (statuses as of 07/31/2023) Active Problems Problem Noted Date Diagnosed Date [...] as of this encounter (statuses as of 07/31/2023) Resolved Problems Problem Noted Date Diagnosed Date Resolved Date Protein-calorie malnutrition 10/03/2020 07/22/2021 Pneumonia due to COVID-19 virus 09/10/2020 02/17/2022 Diabetes mellitus with background retinopathy 02/28/2003/14/2020 Kidney disease, chronic, sta ge III (GFR 30-59 ml/min) 11/14/2019 01/12/2020 Overview: Per CKD protocol Severe obesity (BMI 35.0-39. 9) with comorbidity 11/07/2019 11/07/[address] 04/20/20192018 Nonintractable generalized i diopathic epilepsy without status epilepticus 03/09/20190 07/2019 Malignant neoplasm of liver 02/04/2019 07/10/2020 Obesity, Class III, BMI 40-4 9.9 (morbid obesity) 07/12/2018 12/07/2019 Overview: More specific code in use. Vertigo 02/19/2016 03/14/2023 Breast cancer screening 11/30/2015 050 06/2018 Vaginitis 05/18/2015 05/21/2016 Vaginitis 10/18/2014 01/24/2015 [...] Per Obesity Taxonomy Coronary atherosclerosis of [place] coronary artery 09/15/2008 10/03/2008 Malaise and fatigue [...] as of this encounter (statuses as of 07/31/2023) Immunizations Name Administration Dates Next Due COVID-19 mRNA, LNP-s, No Pre serve, 2-Dose Series (OYO Sportstoys) 11/08/2020,10/11/2020 HEP A - Hepatitis A (Adult > 18 yrs) 04/11/2011, 09/20/2010 Hepatitis B, 20+ yrs 07/05/2015 Pneumococcal Conjugate Vacci ne, 20-valent ([id number]) 03/13/2023 Pneumococcal Polysaccharide PPV23 (Pneumovax) 02/19/2018,03/09/2007 Seasonal [...] encounter Miscellaneous Notes * Telephone Encounter - Jennifer Jean LPN - 07/31/2023 12:03 PM EST Care Gaps Comprehensive Care Outreach Last Office/Telemedicine Visit: 03/13/2023 (in office), 09/08/2022 (telemedicine) Next Office Visit: Visit date not found Hemoglobin AIC Results: Lab Results Component Value Date/Time HEMOGLOBIN A1C - [facility] 5.8 (H) 07/23/2023 12:00 PM HEMOGLOBIN A1C - [facility] 5.7 (H) 02/18/2023 01:26 PM HEMOGLOBIN A1C - [facility] 8.6 (H) 06/11/2022 09:48 AM HEMOGLOBIN A1C - [facility] 7.9 (H) 06/14/2020 09:00 AM HEMOGLOBIN A1C - [facility] 6.5 (H) 12/12/2019 09:47 AM HEMOGLOBIN A1C - [facility] 6.8 (H) 02/16/2019 09:09 AM BP Readings from Last 1 Encounters: 03/13/23 124/72 Reviewed Health Maintenance below: Health Maintenance Topic Date Due Cervical Cancer Screening 04/12/2018 Mammogram 05/07/2019 COLONOSCOPY-EVERY 5 YRS AGES 18-100 06/27/2020 Diabetic Eye Exam 01/16/2023 COVID-19 Vaccine ( season) 2023 B-12 06/11/2023 Zoster Vaccines (2 of 2) 06/14/2023 Pap Mamm Colon eye Care Gap Outreach Action Taken: Unable to reach documented in this encounter Plan of Treatment Upcoming Encounters Date Type Department Care Team (Late st Contact Info) Description 08/05/2023 8:45 AM EST Imaging Radiology [facility] [address] [place] [address] 08/06/2023 1:00 PM EST [address]med[address] [address] [address] [address] 08/14/2023 11:00 AM EST Office Visit Pharmacy, [address] [address] 08/19/2023 2:15 PM EDT Office Visit Hematology/Oncology [facility] [address] [place] [phone] Sunil Bourgeois MD [address] [place] [address] 09/16/2023 1:20 PM EDT Office Visit Neurology [facility] [address] [place] [address] Yesenia Wayne PA-C [address] [place] [address] 12/03/2023 9:30 AM EDT Procedure Only Endoscopy, [facility] [address] [place] [address] Aj Pruett DO [address] [place] [address] Health Maintenance Due Date Last Done Comments [...] this encounter Medical Devices Implanted Type Area Testing Manager Device Identifier Shelf Expiration Date Model / Serial / Lot Neurostimul Intellis Adaptiv - [id number] - [id number] Implanted:Qty: 1 on 08/22/2022 by Rafia Small MD at OR [facility] N/A: Spine Lumbar [employer] 06/21/2023 [id number] / [id number] / Description:battery Medtronic Lead Kit 60 Cm Implanted:Qty: 1 on 08/22/2022 by Rafia Small MD at OR [facility] N/A: Spine Lumbar 02/01/2026 [id number] / / [id number] Medtronic Lead Kit 60cm Implanted:Qty: 1 on 08/22/2022 by Rafia Small MD at OR [facility] N/A: Spine Lumbar 03/21/2026 [id number] / / [id number] Envelope Tyrx Med Antibacteril - [id number] Implanted:Qty: 1 on 08/22/2022 by Rafia Small MD at OR [facility] N/A: Spine Lumbar [employer] 03/10/2023 [id number] / / [id number] documented as of this encounter Advance Directives [...] the patient have Health Care Power of Paintless Dent Repair Technician? No Code Status History Code Status Date Activated Date Inactivated Comments Full Code 01/21/2011 12:12 PM 01/22/2011 8:48 PM This order reflects the patients wishes and were consensually agreed upon. Question Answer Comments Discussion of Advance Directives occurred with: Patient Does the patient have a Living Will? No Does the patient have Health Care Power of Paintless Dent Repair Technician? No Care Teams Calculating Machine Mechanic Relationship Specialty Start Date End Date Scott Weldon MD [address] [place] [address] PCP - General Family Medicine 08/03/18 documented as of this encounter
--- OUTSIDE RECORDS SUMMARY | 2023-08-12 09:19 | External Medical Summary ---
Author Name Unknown Address Unknown Organization K01:LAB[facility]ATORY [place] [address] [place] [address] Laboratory Report Ordering Provider Test Date Status DAT REINOSO 07/23/2023 12:00:24 Final Observation Date Value Abnormality Reference (Units ) Status BUN 07/23/2023 12:00:24 14 6-20 (mg/dL) Final Creatinine 07/23/2023 12:00:24 1.3 Above high normal 0.5-1.0 (mg/dL) Final Glomerular filtration rate/1.73 sq M.predicted [Volume Rate/Area] in Serum, Plasma or Blood by Creatinine-based formula (CKD-EPI) 07/23/2023 12:00:24 52 Below low normal >=60 (mL/min) Final eGFR is calculated based on the CKD-EPI 2020 equation SODIUM 07/23/2023 12:00:24 141 135-146 (m mol/L) Final Potassium 07/23/2023 12:00:24 4.4 3.5-5.1 (m mol/L) Final Cl 07/23/2023 12:00:24 101 98-107 (mm ol/L) Final CO2 07/23/2023 12:00:24 27 22-32 (mmo l/L) Final Anion gap 07/23/2023 12:00:24 13 7-15 (mmol /L) Final Glucose 07/23/2023 12:00:24 77 70-120 (mg /dL) Final Calcium 07/23/2023 12:00:24 9.0 8.4-10.2 ( mg/dL) Final Performing Location LABORATORY [facility] – [place] - [facility] [address] [place] [address]
--- OUTSIDE RECORDS SUMMARY | 2023-08-12 09:19 | External Medical Summary ---
Author Name Unknown Address Unknown Organization K01:[place] [place] [address] [place] [address] Laboratory Report Ordering Provider Test Date Status LUIS ANTONIO LEIVA 07/23/2023 12:00:24 Final Observation Date Value Abnormality Reference (Units ) Status Ferritin 07/23/2023 12:00:24 215 Above high normal 13 -150 (ng/mL) Final Postmenopausal women have hi gher ferritin levels than pre-menopausal women. The above reference interval is based on pre-menopausal women. Performing Location [facility] [place] [address] [place] [address]
--- OUTSIDE RECORDS SUMMARY | 2023-08-12 09:19 | External Medical Summary ---
Author Name Unknown Address Unknown Organization K01:[place] [place] [address] [facility] [address] Laboratory Report Ordering Provider Test Date Status DAT REINOSO 07/23/2023 12:00:24 Final Observation Date Value Abnormality Reference (Units ) Status HbA1C 07/23/2023 12:00:24 5.8 Above high normal 4. 0-5.6 (%) Final The use of HbA1c to monitor glycemic status is based on normal hemoglobin and HbA composition. This test should not be used in patients with abnormal hemoglobin that affects the half life of the red blood cell or the in vivo glycation rates. Glucose, estimated average 07/23/2023 12:00:24 120 <126 (mg/dL) Final Performing Location [place] [facility] [place] [facility] [place] [address]
--- OUTSIDE RECORDS SUMMARY | 2023-08-12 09:19 | External Medical Summary ---
Author Name Unknown Address Unknown Organization K01:[facility] [place] [facility] [place] [address] [facility] [place] [address] Laboratory Report Ordering Provider Test Date Status FRANCISCO JAVIER NEELY 07/23/2023 12:00:24 Final Observation Date Value Abnormality Reference (Units ) Status Triglyceride 07/23/2023 12:00:24 103 <=174 ( mg/dL) Final Triglyceride Reference Range s (mg/dL):
<150 Acceptable
150-174 Borderline high
175-499 High
>=500 Very high Cholesterol 07/23/2023 12:00:24 121 <200 (mg /dL) Final Total Cholesterol Reference Ranges (mg/dL):
<200 Desirable
200-239 Borderline high
>=240 High HDL 07/23/2023 12:00:24 46 Below low normal >49 (mg/dL) Final HDL Cholesterol Reference Ra nges (mg/dL):
>=60 High (Desirable)
<50 Low (Undesirable) For Females
<40 Low (Undesirable) For Males NON-HDL CHOLESTEROL 07/23/2023 12:00:24 75 <=159 (mg/dL) Final Non-HDL Cholesterol Referenc e Range (mg/dL):
<100 Target level for high risk ASCVD patient
<130 Optimal for general population
130-159 Near optimal for general population
160-189 Borderline High
190-219 High
>=220 Very High LDL, (calculated) 07/23/2023 12:00:24 54 <= 129 (mg/dL) Final LDL Cholesterol Reference Ra nges (mg/dL):
<70 Target level for high risk ASCVD patient
<100 Optimal for general population
100-129 Near optimal for general population
130-159 Borderline high
160-189 High
>=190 Very high Performing Location [facility]ORY [place] [facility] [place] - [address] [facility] [address]
--- OUTSIDE RECORDS SUMMARY | 2023-08-12 09:19 | External Medical Summary ---
Author Name Unknown Address Unknown Organization K01:[facility]ORY [place] [address] [place] [address] Laboratory Report Ordering Provider Test Date Status JAN RIBEIRO 07/23/2023 12:03:41 Final Normal: <30 mg/g creatinine< br/>High: 30-300 mg/g creatinine
Very High: >300 mg/g creatinine
Nephrotic: >2200 mg/g creatinine Observation Date Value Abnormality Reference (Units ) Status Albumin, Urine 07/23/2023 12:03:41 <1.20 (mg/dL) Final Creatinine, Urine 07/23/2023 12:03:41 58 (mg/dL) Final Albumin/Creatinine [Mass Ratio] in Urine 07/23/2023 12:03:41 <21 <30 (mg/g Creat) Final Performing Location LAB[facility]ATORY [place] [address] [place] [address]
--- OUTSIDE RECORDS SUMMARY | 2023-08-12 09:19 | External Medical Summary | Summary of Care ---
Author Name Unknown Organization [facility] Address [address] [facility] [place] [address] Phone [phone] Care Team Providers Care Proof Technician Name Role Phone Scott Montoya MD Primary Care Provider + Reason for Visit * Reason Onset Date Comments Medication Refill 07/21/2023 Encounter Details Date Type Department Care Team (Late st Contact Info) Description 07/21/2023 Refill Family Practice [facility] [address] [place] [address] Scott Montoya MD [address] [place] [address] Allergies Active Allergy Reactions Criticality Noted Date Comments Naproxen Sodium Bleeding High 11/29/2013 Pollen 12/03/2022 Seasonal Food (See Comments) Anaphylaxis High 04/20/2019 Hot peppers (oils) Kiwi Extract Anaphylaxis High 04/20/2019 documented as of this encounter (statuses as of 07/24/2023) Medications Medication Sig Dispensed Refills Start Date [...] suspected opioid overdose. Seek immediate medical attention. [email or web address] 1 Each 3 3 Active hydrOXYzine HCl [...] 8.0% (HCC),DM type 2, not at goal ([facility]) INJECT UP TO 200 UNITS SUBCUTANEOSULY ONCE DAILY VIA PUMP 60 mL 0 3 Active traZODone HCl 100 MG Oral Tablet (Desyrel) Take 1-2 Tablets by mouth at bedtime. 180 Tablet 1 3 Active Pregabalin 100 MG Oral Capsule [...] 4 Active LORazepam 1 MG Oral Tablet (Ativan)Indications :Anxiety [...] (Glucophage)Indicat ions:DM type 2, not at goal (HCC) TAKE 1 TABLET BY MOUTH 2 TIMES A DAY WITH MORNING AND EVENING MEALS 180 Tablet 1 4 Active Eszopiclone 1 MG Oral Tablet (Lunesta)Indication s:sleep Take 1 Tablet by mouth at bedtime. 30 Tablet 2 4 Active Buprenorphine 5 MCG/HR Transdermal Patch Weekly (Butrans) Place 1 Patch topically on the skin once a week. 4 Patch 0 4 Active Buprenorphine 5 MCG/HR Transdermal Patch Weekly (Butrans) Place 1 Patch topically on the skin once a week. 4 Patch 0 4 07/21/19 24 Discontinu ed(Refill) documented as of this encounter (statuses as of 07/24/2023) Active Problems Problem Noted Date Diagnosed Date [...] as of this encounter (statuses as of 07/24/2023) Resolved Problems Problem Noted Date Diagnosed Date [...] Overview: Per Obesity Taxonomy Coronary atherosclerosis of [place] coronary artery 09/15/2008 10/03/2008 Malaise and fatigue [...] term ACUTE CYSTITIS 01/06/2001 10/02/2003 Candidal vulvovaginitis 01/06/2001 0411/2003 Constipation 09/02/2000 08/29/2013 Overview: ICD-10 update of inactive term ACUTE BRONCHITIS 07/04/1999 10/02/2003 Dyslipidemia, goal LDL below 100 03/06/2010 ASCVD 01/24/2015 Other specified disorders of liver 12/30/2010 Overview: fatty liver Kidney stone 09/15/2014 Overview: x 2 documented as of this encounter (statuses as of 07/24/2023) Immunizations Name Administration Dates Next Due COVID-19 mRNA, LNP-s, No Pre serve, 2-Dose Series (DuraSweeper) 11/08/2020,10/11/2020 HEP A - Hepatitis A (Adult > 18 yrs) 04/11/2011, 09/20/2010 Hepatitis B, 20+ yrs 07/05/2015 Pneumococcal Conjugate Vacci ne, 20-valent ([id number]) 03/13/2023 Pneumococcal Polysaccharide PPV23 (Pneumovax) 02/19/2018,03/09/2007 Seasonal [...] encounter Miscellaneous Notes * Telephone Encounter - Scott Montoya MD - 07/24/2023 8:24 AM ESTSigned Prescriptions: Disp Refills Buprenorphine 5 MCG/HR Transdermal Patch W*4 Patch0 Sig: Place 1 Patch topically on the skin once a week. Authorizing Provider: SCOTT MONTOYA * Telephone Encounter - Sandra Griffin, [facility] - 07/24/2023 4:51 AM ESTPending Prescriptions: Disp Refills Buprenorphine 5 MCG/HR Transdermal Patch W*4 Patch0 Sig: Place 1 Patch topically on the skin once a week. * Telephone Encounter - Scott Baker, [facility] - 07/22/2023 12:53 PM EST Too soon until 07/24/23 I have reviewed the patients controlled substance dispensing history in the Prescription Drug Monitoring Program in compliance with the [facility] regulations before prescribing a controlled substance. PDMP checked on 07/22/2023. Pending Prescriptions: Disp Refills Buprenorphine 5 MCG/HR Transdermal Patch *4 Patch0 Sig: Place 1 Patch topically on the skin once a week. Last Visit: 03/13/2023 (in office), 09/08/2022 (telemedicine) Next Visit: Visit date not found Date medication was last filled: 07/01/23 Date medication is due for refill: 07/28/23 Pharmacy: [id number] Is this request for a controlled substance? Yes and Urine Drug Screen Not completed Toxicology results: Results for orders placed or performed in [...] results can be found in Results Review. Please approve if appropriate. Thanks, Scott Baker, PharmD Clinical Pharmacist [facility] ([facility]) (formerly Telepharmacy) [phone] 07/22/2023, 12:54 PM documented in this encounter Plan of Treatment Upcoming Encounters Date Type Department Care Team (Late st Contact Info) Description 07/29/2023 9:00 AM EST Telemedicine Psychiatry, [address] [place] [address] Rj Mai MD [address] [place] [address] 08/05/2023 8:45 AM EST Imaging Radiology [facility] [address]st [address] [address] 08/06/2023 1:00 PM EST [address]med[address], [address] [address] [address] [address] 08/14/2023 11:00 AM EST Pharmacy Pharmacy, [address] [address] 08/19/2023 2:15 PM EDT Office Visit Hematology/Oncology [facility] [place] [address] [place] [address] Sunil Bourgeois MD 200 [facility] [place] [address] 09/16/2023 1:20 PM EDT Office Visit Neurology [facility] [place] [address] [place] [address] Yesenia Wayne PA-C 200 [facility] [place] [address] 12/03/2023 9:30 AM EDT Procedure Only Endoscopy, [facility] [address] [place] [address] Aj Pruett DO [address] [place] [address] Health Maintenance Due Date Last Done Comments [...] this encounter Medical Devices Implanted Type Area Document Control Clerk Device Identifier Shelf Expiration Date Model / Serial / Lot Neurostimul Intellis Adaptiv - [id number] - [id number] Implanted:Qty: 1 on 08/22/2022 by Rafia Small MD at OR [facility] N/A: Spine Lumbar [employer] 06/21/2023 [id number] / [id number] / Description:battery Medtronic Lead Kit 60 Cm Implanted:Qty: 1 on 08/22/2022 by Rafia Small MD at OR [facility] N/A: Spine Lumbar 02/01/2026 [id number] / / [id number] Medtronic Lead Kit 60cm Implanted:Qty: 1 on 08/22/2022 by Rafia Small MD at OR [facility] N/A: Spine Lumbar 03/21/2026 [id number] / / [id number] Envelope Tyrx Med Antibacteril - [id number] Implanted:Qty: 1 on 08/22/2022 by Rafia Small MD at OR [facility] N/A: Spine Lumbar [employer] 03/10/2023 [id number] / / [id number] documented as of this encounter Advance Directives [...] the patient have Health Care Power of Frame Fixer? No Code Status History Code Status Date Activated Date Inactivated Comments Full Code 01/21/2011 12:12 PM 01/22/2011 8:48 PM This order reflects the patients wishes and were consensually agreed upon. Question Answer Comments Discussion of Advance Directives occurred with: Patient Does the patient have a Living Will? No Does the patient have Health Care Power of Frame Fixer? No Care Teams Proof Technician Relationship Specialty Start Date End Date Scott Montoya MD [address] [place] [address] PCP - General Family Medicine 08/03/18 documented as of this encounter
--- OUTSIDE RECORDS SUMMARY | 2023-08-12 09:19 | External Medical Summary | Summary of Care ---
Author Name Unknown Organization [facility] Address 100 [facility] [place] [address] Phone [phone] Care Team Providers Care Hedge Fund Accountant Name Role Phone Scott Weldon MD Primary Care Provider + Encounter Details Date Type Department Care Team (Late st Contact Info) Description 07/18/2023 Orders Only PATIENT PORTAL DO NOT DELETE THIS DEPT USED BY [place] [id number] Allergies Active Allergy Reactions Criticality Noted Date Comments Naproxen Sodium Bleeding High 11/29/2013 Pollen 12/03/2022 Seasonal Food (See Comments) Anaphylaxis High 04/20/2019 Hot peppers (oils) Kiwi Extract Anaphylaxis High 04/20/2019 documented as of this encounter (statuses as of 07/18/2023) Medications Medication Sig Dispensed Refills Start Date [...] suspected opioid overdose. Seek immediate medical attention. [email or web address] 1 Each 3 3 Active [...] BEFORE BEDTIME 270 Capsule 1 3 Active Buprenorphine 5 MCG/HR Transdermal Patch Weekly (Butrans) Place 1 Patch topically on the skin once a week. 4 Patch 0 4 Active Baclofen 10 MG Oral Tablet (Lioresal)Indication [...] (Glucophage)Indicati ons:DM type 2, not at goal ([facility]) TAKE 1 TABLET BY MOUTH 2 TIMES A DAY WITH MORNING AND EVENING MEALS 180 Tablet 1 4 Active Eszopiclone 1 MG Oral Tablet (Lunesta)Indications :sleep Take 1 Tablet by mouth at bedtime. 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 03/09/2019 01/0 07/2019 Malignant neoplasm of liver 02/04/2019 07/10/2020 [...] Overview: Per Obesity Taxonomy Coronary atherosclerosis of [place] coronary artery 09/15/2008 10/03/2008 Malaise and fatigue [...] as of this encounter (statuses as of 07/18/2023) Immunizations Name Administration Dates Next Due COVID-19 mRNA, LNP-s, No Pre serve, 2-Dose Series (Pfizer) 11/08/2020,10/11/2020 HEP A - Hepatitis A (Adult > 18 yrs) 04/11/2011, 09/20/2010 Hepatitis B, 20+ yrs 07/05/2015 Pneumococcal Conjugate Vacci ne, 20-valent ([id number]) 03/13/2023 Pneumococcal Polysaccharide PPV23 (Pneumovax) 02/19/2018,03/09/2007 Seasonal [...] No 04/20/2019 documented as of this encounter Plan of Treatment Upcoming Encounters Date Type Department Care Team (Latest Contact Info) Description 07/29/2023 9:00 AM [facility] Telemedicine Psychiatry, [address] [place] [address] Rj Mai MD [address] [place] [address] 07/29/2023 12:45 PM EST Hospital Encounter ENDO [facility], Endoscopy Room [facility] [address] [place] [phone] Aj Pruett, DO [address] [place] [address] 07/29/2023 12:45 PM EST - 07/29/2023 1:15 PM EST Surgery ENDO [facility], Endoscopy Room [facility] [address] [place] [phone] Aj Pruett, DO [address] [place] [address] COLONOSCOPY FLEXIBLE PROXIMAL DIAGNOSTIC 08/05/2023 8:45 AM EST Imaging Radiology [facility] [address] [place] [address] 08/06/2023 1:00 PM EST Telemedicine Pharmacy, [address] [place] [address] [address] [address] 08/14/2023 11:00 AM EST Pharmacy Pharmacy, [address] [address] [place] [address] [address] [facility] [place] [address] 08/19/2023 2:15 PM EDT Office Visit Hematology/Oncolog y [facility] [address] [facility] [address] [place] [address] Sunil Bourgeois MD [address] [facility] [place] [address] 09/16/2023 1:20 PM EDT Office Visit Neurology [facility] [address] [place] [address] Yesenia Wayne PA-C [address] [facility] [place] [address] Scheduled Procedures Name Priority Associated Diagnoses Date/Ti me COLONOSCOPY FLEXIBLE PROXIMAL DIAGNOSTIC Screen for colon cancer 07/29/2023 12:45 PM EST Health Maintenance Due Date Last Done Comments HPV/Co-Test 2002 Cervical Cancer Screening 04/12/2018 Pap Smear 04/12/2018 04/12/2015, 1110/2014, 09/28/2008, Additional history exists Mammogram 05/07/2019 05/07/2018, 01/21/2016 COLONOSCOPY-EVERY 5 YRS AGES 18-100 06/27/2020 06/27/2015, 06/27/2015, 06/06/2010, Additional history exists Diabetic Eye Exam 01/16/2023 01/16/2022, , 12/14/2019, Additional history exists COVID-19 Vaccine ( season) 2023 11/08/2020, 10/11/2020 B-12 06/11/2023 06/11/2022, 010 12/2020, 07/05/2019, Additional history exists Zoster Vaccines (2 of 2) 06/14/2023 04/19/2023 HbA1c 08/19/2023 02/18/2023, 0 09/2022, 05/03/2022, Additional history exists GFR 12/04/2023 12/03/2022, 0 09/2022, 03/11/2022, Additional history exists Depression Screening 03/13/2024 03/13/2023, 10/01/2016 (Declined) Diabetic Foot Exam 03/13/2024 03/13/2023, 0 10/03/2021, 11/07/2019, Additional history exists Albumin/Creatinine Ratio 04/06/2024 023, 03/11/2022, 11/08/2021, Additional history exists Lipid Panel 03/11/2027 03/11/2022, 070 11/2019, 08/18/2018, Additional history exists DTaP,Tdap,and Td Vaccines (3 [...] this encounter Medical Devices Implanted Type Area Pcb Design Engineer Device Identifier Shelf Expiration Date Model / Serial / Lot Envelope Tyrx Med Antibacteril - [id number] Implanted:Qty: 1 on 08/22/2022 by Rafia Small MD at OR [facility] N/A: Spine Lumbar [employer] 03/10/2023 [id number] / / [id number] documented as of this encounter Advance Directives [...] the patient have Health Care Power of Operator Assistant I Cementing? No Code Status History Code Status Date Activated Date Inactivated Comments Full Code 01/21/2011 12:12 PM 01/22/2011 8:48 PM This order reflects the patients wishes and were consensually agreed upon. Question Answer Comments Discussion of Advance Directives occurred with: Patient Does the patient have a Living Will? No Does the patient have Health Care Power of Operator Assistant I Cementing? No Care Teams Hedge Fund Accountant Relationship Specialty Start Date End Date Scott Weldon MD [address] [place] [address] PCP - General Family Medicine 08/03/18 documented as of this encounter
--- OUTSIDE RECORDS SUMMARY | 2023-08-12 09:19 | External Medical Summary | Summary of Care ---
Author Name Unknown Organization [facility] Address 100 [facility] [address] [place] [address] Phone [phone] Care Team Providers Care Clinical Dental Technician Name Role Phone Scott Weldon MD Primary Care Provider + Encounter Details Date Type Department Care Team (Late st Contact Info) Description 07/28/2023 Population Health External Data Unspecified Department Allergies Active Allergy Reactions Criticality Noted Date Comments Naproxen Sodium Bleeding High 11/29/2013 Pollen 12/03/2022 Seasonal Food (See Comments) Anaphylaxis High 04/20/2019 Hot peppers (oils) Kiwi Extract Anaphylaxis High 04/20/2019 documented as of this encounter (statuses as of 07/29/2023) Medications Medication Sig Dispensed Refills Start Date [...] Each 5 8 Active Insulin Infusion Pump (MINIMBuytech 630G INSULIN PUMP) KITIndications:Type 2 diabetes mellitus [...] 8.0% (HCC),DM type 2, not at goal ([facility]) INJECT UP TO 200 UNITS [...] (Glucophage)Indicati ons:DM type 2, not at goal ([facility]) TAKE 1 TABLET BY MOUTH 2 TIMES A DAY WITH MORNING AND EVENING MEALS 180 Tablet 1 4 Active Buprenorphine 5 MCG/HR Transdermal Patch Weekly (Butrans) Place 1 Patch topically on the skin once a week. 4 Patch 0 4 Active documented as of this encounter (statuses as of 07/29/2023) Active Problems Problem Noted Date Diagnosed Date [...] as of this encounter (statuses as of 07/29/2023) Resolved Problems Problem Noted Date Diagnosed Date [...] as of this encounter (statuses as of 07/29/2023) Immunizations Name Administration Dates Next Due COVID-19 mRNA, LNP-s, No Pre serve, 2-Dose Series (WearPoint) 11/08/2020,10/11/2020 HEP A - Hepatitis A (Adult > 18 yrs) 04/11/2011, 09/20/2010 Hepatitis B, 20+ yrs 07/05/2015 Pneumococcal Conjugate Vacci ne, 20-valent ([id number]) 03/13/2023 Pneumococcal Polysaccharide PPV23 (Pneumovax) 02/19/2018,03/09/2007 Seasonal [...] Description 08/05/2023 8:45 AM EST Imaging Radiology [facility] 1st [facility] [address] 08/06/2023 1:00 PM EST Telemedicine Pharmacy, [address] [place] [address] 08/14/2023 11:00 AM EST Office Visit Pharmacy, [address] [address] [place] [address] [place] [address] 08/19/2023 2:15 PM EDT Office Visit Hematology/Oncology [facility] [place] [address] [phone] Sunil Bourgeois MD [address] [address] 09/16/2023 1:20 PM EDT Office Visit Neurology [facility] [place] [address] [address] Yesenia Wayne PA-C 200 [place] [address] 12/03/2023 9:30 AM EDT Procedure Only Endoscopy, [facility] [address] [place] [address] Aj Pruett DO [address] [place] [address] Health Maintenance Due Date Last Done Comments [...] this encounter Medical Devices Implanted Type Area Freight Elevator Erector Device Identifier Shelf Expiration Date Model / Serial / Lot Neurostimul Intellis Adaptiv - [id number] - [id number] Implanted:Qty: 1 on 08/22/2022 by Rafia Small MD at OR [facility] N/A: Spine Lumbar [employer] 06/21/2023 [id number] / [id number] / Description:battery Medtronic Lead Kit 60 Cm Implanted:Qty: 1 on 08/22/2022 by Rafia Small MD at OR [facility] N/A: Spine Lumbar 02/01/2026 [id number] / / [id number] Medtronic Lead Kit 60cm Implanted:Qty: 1 on 08/22/2022 by Rafia Small MD at OR [facility] N/A: Spine Lumbar 03/21/2026 [id number] / / [id number] Envelope Tyrx Med Antibacteril - [id number] Implanted:Qty: 1 on 08/22/2022 by Rafia Small MD at OR [facility] N/A: Spine Lumbar [employer] 03/10/2023 [id number] / / [id number] documented as of this encounter Advance Directives [...] the patient have Health Care Power of Auto Painter Helper? No Code Status History Code Status Date Activated Date Inactivated Comments Full Code 01/21/2011 12:12 PM 01/22/2011 8:48 PM This order reflects the patients wishes and were consensually agreed upon. Question Answer Comments Discussion of Advance Directives occurred with: Patient Does the patient have a Living Will? No Does the patient have Health Care Power of Auto Painter Helper? No Care Teams Clinical Dental Technician Relationship Specialty Start Date End Date Scott Weldon MD [address] [place] [address] PCP - General Family Medicine 08/03/18 documented as of this encounter
--- OUTSIDE RECORDS SUMMARY | 2023-08-12 09:19 | External Medical Summary ---
Author Name Unknown Address Unknown Organization K01:LABORATORY [facility] - [address] [place] [address] Laboratory Report Ordering Provider Test Date Status LUIS ANTONIO LEIVA 07/23/2023 12:00:24 Final Observation Date Value Abnormality Reference (Units ) Status Iron 07/23/2023 12:00:24 53 33-151 (ug /dL) Final Iron-binding capacity 07/23/2023 12:00:24 289 250-425 (ug/dL) Final Transferrin Sat % 07/23/2023 12:00:24 18 15 -55 (%) Final Performing Location LABORATORY [facility] - [address] [place] [address]
--- OUTSIDE RECORDS SUMMARY | 2023-08-12 09:19 | External Medical Summary | Summary of Care ---
Author Name Unknown Organization [facility] Address [address] [place] [address] Phone [phone] Care Team Providers Care Elevator Examiner And Adjuster Name Role Phone Scott Weldon MD Primary Care Provider + Reason for Visit * Reason Comments Outpatient Testing Encounter Details Date Type Department Care Team (Late st Contact Info) Description 07/23/2023 12:00 PM EST Laboratory Laboratory, [facility] [address] [place] [address] [facility] [address] [place] [address] Iron deficiency anemia, unspecified iron deficiency anemia type; Type 2 diabetes mellitus with hemoglobin A1c goal of less than 8.0% ([facility]); DM type 2, not at goal ([facility]); Diabetic retinopathy of both eyes without macular edema associated with type 2 diabetes mellitus, unspecified retinopathy severity ([facility]) Allergies Active Allergy Reactions Criticality Noted Date Comments Naproxen Sodium Bleeding High 11/29/2013 Pollen 12/03/2022 Seasonal Food (See Comments) Anaphylaxis High 04/20/2019 Hot peppers (oils) Kiwi Extract Anaphylaxis High 04/20/2019 documented as of this encounter (statuses as of 07/23/2023) Medications Medication Sig Dispensed Refills Start Date [...] Dosing Unit 3 6 Active Glucose Blood (BrightBytes CONTOUR NEXT TEST) STRP Use to test [...] suspected opioid overdose. Seek immediate medical attention. [email or web address] 1 Each 3 3 Active [...] (Glucophage)Indicati ons:DM type 2, not at goal (HCC) TAKE 1 TABLET BY MOUTH 2 TIMES A DAY WITH MORNING AND EVENING MEALS 180 Tablet 1 4 Active Eszopiclone 1 MG Oral Tablet (Lunesta)Indications :sleep Take 1 Tablet by mouth at bedtime. 30 Tablet 2 4 Active documented as of this encounter (statuses as of 07/23/2023) Active Problems Problem Noted Date Diagnosed Date [...] as of this encounter (statuses as of 07/23/2023) Resolved Problems Problem Noted Date Diagnosed Date [...] Overview: Per Obesity Taxonomy Coronary atherosclerosis of [place] coronary artery 09/15/2008 10/03/2008 Malaise and fatigue [...] as of this encounter (statuses as of 07/23/2023) Immunizations Name Administration Dates Next Due COVID-19 mRNA, LNP-s, No Pre serve, 2-Dose Series ([id number]) 11/08/2020,10/11/2020 HEP A - Hepatitis A (Adult > 18 yrs) 04/11/2011, 09/20/2010 Hepatitis B, 20+ yrs 07/05/2015 Pneumococcal Conjugate Vacci ne, 20-valent ([id number]) 03/13/2023 Pneumococcal Polysaccharide PPV23 (Pneumovax) 02/19/2018,03/09/2007 Seasonal [...] Description 07/29/2023 9:00 AM EST Telemedicine Psychiatry, [facility] [place] [address] Rj Mai MD [address] [facility] [place] [address] 08/05/2023 8:45 AM EST Imaging Radiology [facility] [place] [facility] [place] [address] 08/06/2023 1:00 PM EST Telemedicine Pharmacy, [facility] [address] [facility] [place] [address] 08/14/2023 11:00 AM EST Pharmacy Pharmacy, [place] [address] [facility] [facility] [address] [facility] [address] [facility] [address] 08/19/2023 2:15 PM EDT Office Visit Hematology/Oncology [facility] [place] [address] [place] [address] Sunil Bourgeois MD [address] [place] [address] 09/16/2023 1:20 PM EDT Office Visit Neurology [facility] [place] [address] [place] [address] Yesenia Wayne PA-C 200 [facility] [place] [address] 12/03/2023 9:30 AM EDT Procedure Only Endoscopy, [facility] 132 [facility] [place] [address] Aj Pruett DO [facility] [place] [address] Pending Results Name Type Priority Associated Diagnoses Date /Time CBC WITH WBC DIFFERENTIAL Lab STAT Iron deficiency anemia, unspecified iron deficiency anemia type 07/23/2023 12:00 PM EST FERRITIN Lab STAT Iron deficiency anemia, unspecified iron deficiency anemia type 07/23/2023 12:00 PM EST IRON SCREEN, INCLUDING TIBC Lab STAT Iron deficiency anemia, unspecified iron deficiency anemia type 07/23/2023 12:00 PM EST HEMOGLOBIN A1C Lab Routine Type 2 diabetes mellitus with hemoglobin A1c goal of less than 8.0% ([facility]) 07/23/2023 12:00 PM EST BASIC METABOLIC PANEL Lab Routine Type 2 diabetes mellitus with hemoglobin A1c goal of less than 8.0% ([facility]) 07/23/2023 12:00 PM EST LIPID PANEL WITH DIRECT LDL IF TG IS HIGH Lab Routine DM type 2, not at goal ([facility]) 07/23/2023 12:00 PM EST CBC Lab STAT Iron deficiency anemia, unspecified iron deficiency anemia type 07/23/2023 12:00 PM EST DIFFERENTIAL, AUTOMATED Lab STAT Iron deficiency anemia, unspecified iron deficiency anemia type 07/23/2023 12:00 PM EST ALBUMIN / CREATININE RATIO, URINE Lab Routine Diabetic retinopathy of both eyes without macular edema associated with type 2 diabetes mellitus, unspecified retinopathy severity ([facility]) 07/23/2023 12:03 PM EST Health Maintenance Due Date Last [...] Additional history exists Lipid Panel 03/11/2027 03/11/2022, 07/0 11/2019, 08/18/2018, Additional history exists DTaP,Tdap,and Td [...] this encounter Medical Devices Implanted Type Area Overlock Operator Device Identifier Shelf Expiration Date Model / Serial / Lot Envelope Tyrx Med Antibacteril - [id number] Implanted:Qty: 1 on 08/22/2022 by Rafia Small MD at OR [facility] N/A: Spine Lumbar [employer] 03/10/2023 [id number] / / [id number] documented as of this encounter Visit Diagnoses Diagnosis Iron deficiency anemia, unspecified iron deficiency anemia type Type 2 diabetes mellitus with hemoglobin A1c goal of less than 8.0% (HCC) DM type 2, not at goal (HCC) Type II or unspecified type diabetes mellitus without mention of complication, not stated as uncontrolled Diabetic retinopathy of both eyes without macular edema associated with type 2 diabetes mellitus, unspecified retinopathy severity (HCC) documented in this encounter Advance Directives Latest [...] the patient have Health Care Power of Tamale Machine Feeder? No Code Status History Code Status Date Activated Date Inactivated Comments Full Code 01/21/2011 12:12 PM 01/22/2011 8:48 PM This order reflects the patients wishes and were consensually agreed upon. Question Answer Comments Discussion of Advance Directives occurred with: Patient Does the patient have a Living Will? No Does the patient have Health Care Power of Tamale Machine Feeder? No Care Teams Elevator Examiner And Adjuster Relationship Specialty Start Date End Date Scott Weldon MD [address] [place] [address] PCP - General Family Medicine 08/03/18 documented as of this encounter
--- OUTSIDE RECORDS SUMMARY | 2023-08-12 09:20 | External Medical Summary | Summary of Care ---
Author Name Unknown Organization [facility] Address 100 [facility] [place] [address] Phone [phone] Care Team Providers Care Gage Maker Name Role Phone Scott Weldon MD Primary Care Provider + Reason for Visit * Reason Onset Date Comments Forms Request 07/07/2023 [employer] Encounter Details Date Type Department Care Team (Late st Contact Info) Description 07/07/[address] [facility] [address] [place] [address] Scott Weldon MD [address] [place] [address] Forms Request ([employer] ) Allergies Active Allergy Reactions Criticality Noted Date Comments Naproxen Sodium Bleeding High 11/29/2013 Pollen 12/03/2022 Seasonal Food (See Comments) Anaphylaxis High 04/20/2019 Hot peppers (oils) Kiwi Extract Anaphylaxis High 04/20/2019 documented as of this encounter (statuses as of 07/07/2023) Medications Medication Sig Dispensed Refills Start Date [...] Dosing Unit 3 6 Active Glucose Blood ([employer] CONTOUR NEXT TEST) STRP Use to test [...] (HCC) Use as directed. 0 8 Active metFORMIN HCl 1000 MG Oral Tablet (Glucophage)Indicati ons:DM type 2, not at goal (HCC) TAKE 1 TABLET BY MOUTH 2 TIMES A DAY WITH MORNING AND EVENING MEALS 180 Tablet 3 3 Active CPAP every night at bedtime. 0 [...] suspected opioid overdose. Seek immediate medical attention. [email or web address] 1 Each 3 3 Active Potassium Chloride ER 10 MEQ Oral Tablet Extended ReleaseIndications:H TN, goal below 130/80 TAKE 1 TABLET BY MOUTH TWICE A DAY WITH FOOD 180 Tablet 1 3 Active hydrOXYzine HCl 25 MG Oral Tablet Take 1 tab during the day every 4-6 hours as needed for anxiety and take 2 tabs at bedtime as needed for anxiety 120 Tablet 3 3 Active Omeprazole 20 MG Oral Capsule Delayed Release (PriLOSEC)Indication s:Gastroesophageal reflux disease without esophagitis TAKE 1 CAPSULE BY MOUTH TWICE A DAY 180 Capsule 1 3 Active Eszopiclone 1 MG Oral Tablet (Lunesta)Indications :sleep Take 1 Tablet by mouth at bedtime. 30 Tablet 2 3 Active Atenolol 100 MG Oral Tablet [...] at bedtime. 180 Tablet 1 3 Active Albuterol Sulfate HFA 108 (90 Base) MCG/ACT Inhalation Aerosol Solution INHALE 2 PUFFS BY MOUTH EVERY 6 HOURS NEEDED FOR SHORTNESS OF BREATH 18 g 1 3 Active Pregabalin 100 MG Oral [...] for anxiety. 2 Tablet 0 4 Active documented as of this encounter (statuses as of 07/07/2023) Active Problems Problem Noted Date Diagnosed Date [...] as of this encounter (statuses as of 07/07/2023) Resolved Problems Problem Noted Date Diagnosed Date [...] Overview: Per Obesity Taxonomy Coronary atherosclerosis of [place] coronary artery 09/15/2008 10/03/2008 Malaise and fatigue [...] as of this encounter (statuses as of 07/07/2023) Immunizations Name Administration Dates Next Due COVID-19 mRNA, LNP-s, No Pre serve, 2-Dose Series (Gigaom) 11/08/2020,10/11/2020 HEP A - Hepatitis A (Adult > 18 yrs) 04/11/2011, 09/20/2010 Hepatitis B, 20+ yrs 07/05/2015 Pneumococcal Conjugate Vacci ne, 20-valent ([id number]) 03/13/2023 Pneumococcal Polysaccharide PPV23 (Pneumovax) 02/19/2018,03/09/2007 Seasonal [...] encounter Miscellaneous Notes * Telephone Encounter - Kathie Soares LPN - 07/07/2023 2:00 PM EST Form completed and faxed back with office notes. * Telephone Encounter - Kathie Soares LPN - 07/07/2023 8:06 AM EST Received fax from [employer] for patients Dexcom. Form needs PCP signature. Will fax once signed. documented in this encounter Plan of Treatment Upcoming Encounters Date Type Department Care Team (Latest Contact Info) Description 07/29/2023 9:00 AM EST Telemedicine Psychiatry, [facility] 200 [facility] [place] [address] Rj Mai MD [address] [place] [address] 07/29/2023 12:45 PM EST Hospital Encounter ENDO [facility], Endoscopy Room [facility] [address] [facility] [place] [address] Aj Pruett, DO [address] [place] [address] 07/29/2023 12:45 PM EST - 07/29/2023 1:15 PM EST Surgery ENDO [facility], Endoscopy Room [facility] 132 [facility] [place] [phone] Aj Pruett, DO [address] [place] [address] COLONOSCOPY FLEXIBLE PROXIMAL DIAGNOSTIC 08/05/2023 8:45 AM EST Imaging Radiology [facility] 1st [facility] 132 [facility] [place] [address] 08/06/2023 1:00 PM EST Telemedicine Pharmacy, [address] [place] [address] 08/14/2023 11:00 AM EST Pharmacy Pharmacy, [address] [address] 08/19/2023 2:15 PM EDT Office Visit Hematology/Oncolog y [facility] 200 [place] [address] Sunil Bourgeois MD 200 [facility] [place] [address] 09/16/2023 1:20 PM EDT Office Visit Neurology [facility] [address] [facility] [place] [address] Yesenia Wayne PA-C 200 [place] [address] Scheduled Procedures Name Priority Associated Diagnoses Date/Ti [...] exists Diabetic Eye Exam 01/16/2023 01/16/2022, , 02/12/2016, Additional history exists COVID-19 Vaccine ( season) 2023 11/08/2020, 10/11/2020 B-12 06/11/2023 06/11/2022, 010 12/2020, 07/05/2019, Additional history exists Zoster Vaccines (2 of 2) 06/14/2023 04/19/2023 HbA1c 08/19/2023 02/18/2023, 0 09/2022, 05/03/2022, Additional history exists GFR 12/04/2023 12/03/2022, 010 09/2022, 03/11/2022, Additional history exists Depression Screening [...] this encounter Medical Devices Implanted Type Area Foot Cutter Device Identifier Shelf Expiration Date Model / Serial / Lot Envelope Tyrx Med Antibacteril - [id number] Implanted:Qty: 1 on 08/22/2022 by Rafia Small MD at OR [facility] N/A: Spine Lumbar [employer] 03/10/2023 [id number] / / [id number] documented as of this encounter Advance Directives [...] the patient have Health Care Power of Clerk Secretary? No Code Status History Code Status Date Activated Date Inactivated Comments Full Code 01/21/2011 12:12 PM 01/22/2011 8:48 PM This order reflects the patients wishes and were consensually agreed upon. Question Answer Comments Discussion of Advance Directives occurred with: Patient Does the patient have a Living Will? No Does the patient have Health Care Power of Clerk Secretary? No Care Teams Gage Maker Relationship Specialty Start Date End Date Scott Weldon MD [address] [place] [address] PCP - General Family Medicine 08/03/18 documented as of this encounter
--- OUTSIDE RECORDS SUMMARY | 2023-08-12 09:20 | External Medical Summary | Summary of Care ---
Author Name Unknown Organization [facility] Address 100 [facility] [place] [address] Phone [phone] Care Team Providers Care Candy Feeder Name Role Phone Scott Montoya MD Primary Care Provider + Reason for Visit * Reason Onset Date Comments Medication Refill 06/30/2023 Encounter Details Date Type Department Care Team (Late st Contact Info) Description 06/30/2023 Refill Family Practice [facility] [address] [place] [address] Scott Montoya MD [address] [place] [address] Back spasm Allergies Active Allergy Reactions Criticality Noted Date Comments Naproxen Sodium Bleeding High 11/29/2013 Pollen 12/03/2022 Seasonal Food (See Comments) Anaphylaxis High 04/20/2019 Hot peppers (oils) Kiwi Extract Anaphylaxis High 04/20/2019 documented as of this encounter (statuses as of 06/30/2023) Medications Medication Sig Dispensed Refills Start Date [...] Dosing Unit 3 6 Active Glucose Blood ([employer] CONTOUR NEXT TEST) STRP Use to test [...] suspected opioid overdose. Seek immediate medical attention. [email or web address]?v=[email or web address] 1 Each 3 3 Active Potassium Chloride [...] 3 Active Eszopiclone 1 MG Oral Tablet (Lunesta)Indication [...] 4 Active Baclofen 10 MG Oral Tablet (Lioresal)Indicatio ns:muscle spasms Take 1 Tablet by mouth 3 times a day as needed for Muscle spasms. 90 Tablet 5 4 Active Baclofen 10 MG Oral Tablet (Lioresal)Indicatio ns:muscle spasms Take 1 Tablet by mouth 3 times a day as needed for Muscle spasms. 90 Tablet 5 3 06/30/19 24 Discontinu ed(Refill) documented as of this encounter (statuses as of 06/30/2023) Active Problems Problem Noted Date Diagnosed Date [...] as of this encounter (statuses as of 06/30/2023) Resolved Problems Problem Noted Date Diagnosed Date [...] Overview: Per Obesity Taxonomy Coronary atherosclerosis of [place] coronary artery 09/15/2008 10/03/2008 Malaise and fatigue [...] as of this encounter (statuses as of 06/30/2023) Immunizations Name Administration Dates Next Due COVID-19 mRNA, LNP-s, No Pre serve, 2-Dose Series (Seevibes) 11/08/2020,10/11/2020 HEP A - Hepatitis A (Adult > 18 yrs) 04/11/2011, 09/20/2010 Hepatitis B, 20+ yrs 07/05/2015 Pneumococcal Conjugate Vacci ne, 20-valent ([id number]) 03/13/2023 Pneumococcal Polysaccharide PPV23 (Pneumovax) 02/19/2018,03/09/2007 Seasonal [...] Telephone Encounter - Scott Montoya MD - 06/30/2023 10:50 PM EST Signed Prescriptions: Disp Refills Baclofen 10 MG Oral Tablet (Lioresal) 90 Tab*5 Sig: Take 1 Tablet by mouth 3 times a day as needed for Muscle spasms. Authorizing Provider: SCOTT MONTOYA * Telephone Encounter - Alison Ellison LPN - 06/30/2023 2:17 PM ESTPending Prescriptions: Disp Refills Baclofen 10 MG Oral Tablet (Lioresal) 90 Tab*5 Sig: Take 1 Tablet by mouth 3 times a day as needed for Muscle spasms. * Telephone Encounter - Kassandra Bauer OSA - 06/30/2023 12:41 PM EST Did you pend patient's preferred pharmacy and medication before forwarding?yes Pharmacy: [id number] [address] [facility] Pending Prescriptions: Disp Refills Baclofen 10 MG Oral Tablet (Lioresal) 90 Tab*5 Sig: Take 1 Tablet by mouth 3 times a day as needed for Muscle spasms. Last Visit: 03/13/2023 (in office), 09/08/2022 (telemedicine) Next Visit: Visit date not found If no future appointments scheduled, and last appointment is greater than a year ago, please schedule patient for a follow-up appointment Last date the medication was ordered: 05/04/2023 90 Day Request Is this request for a controlled substance?No [...] Labs: Lab Results Component Value Date/Time CREAT 1.1 (H) 12/03/2022 03:43 PM CREAT 1.1 (H) 06/14/2020 09:00 AM POTASSIUM 4.4 12/03/2022 03:43 PM POTASSIUM 4.2 06/14/2020 09:00 AM POTASSIUM 4.5 07/18/1996 10:50 AM TSH 0.73 04/06/2020 01:20 PM LDLCALC 80 03/11/2022 01:29 PM LDLCALC 62 12/12/2019 09:47 AM LDLDIRECT NOT APPLICABLE 12/12/2019 09:47 AM LDLDIRECT 72 11/28/2015 04:11 PM ALT 25 12/03/2022 03:43 PM ALT 17 06/14/2020 09:00 AM HGBA1C 5.7 (H) 02/18/2023 01:26 PM HGBA1C 7.9 (H) 06/14/2020 09:00 AM documented in this encounter Plan of Treatment Upcoming Encounters Date Type Department Care Team (Latest Contact Info) Description 07/02/2023 10:40 AM EST Office Visit Neurology [facility] [place] [address] [place] [address] Monica Shrestha MD 200 [facility] [place] [address] 07/06/2023 2:30 PM EST Imaging Radiology [facility] 1st [facility], [place] [address] [place] [address] 07/29/2023 9:00 AM EST Telemedicine Psychiatry, [facility] [address] [place] [address] Rj Mai MD [address] [place] [facility] [place] [address] 07/29/2023 12:45 PM EST Hospital Encounter ENDO [facility], Endoscopy Room [facility] [address] [place] [phone] Aj Pruett, DO [address] [place] [address] 07/29/2023 12:45 PM EST - 07/29/2023 1:15 PM EST Surgery ENDO [facility], Endoscopy Room [facility] [address] [place] [phone] Aj Pruett, DO [address] [place] [address] COLONOSCOPY FLEXIBLE PROXIMAL DIAGNOSTIC 08/06/2023 1:00 PM EST Telemedicine Pharmacy, [facility] [address] [facility] [address] [facility] [address] 08/14/2023 11:00 AM EST Pharmacy Pharmacy, [address] [address] 08/19/2023 2:15 PM EDT Office Visit Hematology/Oncolog y [facility] Nora [place] [address] [place] [address] Sunil Bourgeois MD [address] [place] [address] Scheduled Procedures Name Priority Associated Diagnoses Date/Ti [...] 02/12/2016, Additional history exists COVID-19 Vaccine ( - 2022- season) 2023 11/08/2020, 10/11/2020 B-12 06/11/2023 06/11/2022, 0 12/2020, 07/05/2019, Additional history exists Zoster Vaccines (2 of 2) 06/14/2023 04/19/2023 HbA1c 08/19/2023 02/18/2023, 0 09/2022, 05/03/2022, Additional history exists GFR 12/04/2023 12/03/2022, 010 09/2022, 03/11/2022, Additional history exists Depression Screening 03/13/2024 03/13/2023, 10/01/2016 (Declined) Diabetic Foot Exam 03/13/2024 03/13/2023, 0 10/03/2021, 11/07/2019, Additional history exists Albumin/Creatinine Ratio 04/06/202404/06/ 023, 03/11/2022, 11/08/2021, Additional history exists Lipid Panel 03/11/2027 03/11/2022, 0 11/2019, 08/18/2018, Additional history exists DTaP,Tdap,and Td [...] this encounter Medical Devices Implanted Type Area Fur Dresser Device Identifier Shelf Expiration Date Model / Serial / Lot Envelope Tyrx Med Antibacteril - [id number] Implanted:Qty: 1 on 08/22/2022 by Rafia Small MD at OR [facility] N/A: Spine Lumbar [employer] 03/10/2023 [id number] / [id number] documented as of this encounter Visit Diagnoses Diagnosis Back spasm Other symptoms referable to back Screen for colon cancer Special screening for malignant neoplasms, colon documented in this encounter Advance Directives Latest [...] the patient have Health Care Power of Clinical Abstractor? No Code Status History Code Status Date Activated Date Inactivated Comments Full Code 01/21/2011 12:12 PM 01/22/2011 8:48 PM This order reflects the patients wishes and were consensually agreed upon. Question Answer Comments Discussion of Advance Directives occurred with: Patient Does the patient have a Living Will? No Does the patient have Health Care Power of Clinical Abstractor? No Care Teams Candy Feeder Relationship Specialty Start Date End Date Scott Montoya MD [address] [place] [address] PCP - General Family Medicine 08/03/18 documented as of this encounter
--- OUTSIDE RECORDS SUMMARY | 2023-08-12 09:20 | External Medical Summary | Summary of Care ---
Author Name Unknown Organization [facility] Address [address] [facility] [place] [address] Phone [phone] Care Team Providers Care Rehabilitation Assistant Name Role Phone Scott Montoya MD Primary Care Provider + Reason for Visit * Reason Comments eRx-Medication Refill Encounter Details Date Type Department Care Team (Late st Contact Info) Description 07/16/2023 Refill Family Practice [facility] 132 [facility] [place] [address] Scott Montoya MD 132 [facility] [place] [address] HTN, goal below 130/80; DM type 2, not at goal (HCC) Allergies Active Allergy Reactions Criticality Noted Date Comments Naproxen Sodium Bleeding High 11/29/2013 Pollen 12/03/2022 Seasonal Food (See Comments) Anaphylaxis High 04/20/2019 Hot peppers (oils) Kiwi Extract Anaphylaxis High 04/20/2019 documented as of this encounter (statuses as of 07/17/2023) Medications Medication Sig Dispensed Refills Start Date [...] Unit 3 12/31/19 16 Active Glucose Blood (Core Oncology CONTOUR NEXT TEST) STRP Use to test [...] morning. 90 Tablet 1 11/05/19 23 Active Ozempic (1 MG/DOSE) 4 MG/3ML Subcutaneous Solution Pen-injector (Semaglutide (1 MG/DOSE))Indication s:Type 2 diabetes mellitus with hemoglobin A1c goal of less than 8.0% (HCC) Inject 1 mg under the skin once a week. Dose increase 3 mL 1 11/06/19 23 Active Dicyclomine HCl 20 MG Oral Tablet (Bentyl) Take 1 Tablet by mouth 2 times a day as needed for Pain or Cramping. 180 Tablet 3 11/15/19 23 Active Naloxone HCl 4 MG/0.1ML Nasal Liquid (Narcan Nasal)Indications:C ontrolled substance agreement signed,Chronic pain syndrome Administer 1 spray into 1 nostril for suspected opioid overdose. Seek immediate medical attention. [email or web address]?[email or web address] 1 Each 3 11/28/19 23 Active hydrOXYzine HCl 25 MG [...] DAY 180 Capsule 1 03/05/20 23 Active Eszopiclone 1 MG Oral Tablet (Lunesta)Indication s:sleep Take 1 Tablet by mouth at bedtime. 30 Tablet 2 04/06/20 23 Active Atenolol 100 MG Oral Tablet [...] PUMP 60 mL 0 05/05/20 23 Active traZODone HCl 100 MG Oral Tablet (Desyrel) Take 1-2 Tablets by mouth at bedtime. 180 Tablet 1 05/06/20 23 Active Pregabalin 100 MG Oral Capsule (Lyrica)Indications :Bilateral low back pain with sciatica, sciatica laterality unspecified, unspecified chronicity TAKE 1 CAPSULE BY MOUTH EVERY DAY IN THE MORNING , AT NOON, AND BEFORE BEDTIME 270 Capsule 1 06/05/20 23 Active Buprenorphine 5 MCG/HR Transdermal Patch Weekly (Butrans) Place 1 Patch topically on the skin once a week. 4 Patch 0 06/29/19 24 Active Baclofen 10 MG Oral Tablet (Lioresal)Indicatio ns:muscle spasms Take 1 Tablet by mouth 3 times a day as needed for Muscle spasms. 90 Tablet 5 06/30/19 24 Active LORazepam 1 MG Oral Tablet (Ativan)Indications [...] MEALS 180 Tablet 1 07/17/19 24 Active metFORMIN HCl 1000 MG Oral Tablet (Glucophage)Indicat ions:DM type 2, not at goal (HCC) TAKE 1 TABLET BY MOUTH 2 TIMES A DAY WITH MORNING AND EVENING MEALS 180 Tablet 3 07/03/19 23 024 Discontinued Potassium Chloride ER 10 MEQ Oral Tablet Extended ReleaseIndications: HTN, goal below 130/80 TAKE 1 TABLET BY MOUTH TWICE A DAY WITH FOOD 180 Tablet 1 01/16/20 23 024 Discontinued Albuterol Sulfate HFA 108 (90 Base) MCG/ACT Inhalation Aerosol Solution INHALE 2 PUFFS BY MOUTH EVERY 6 HOURS NEEDED FOR SHORTNESS OF BREATH 18 g 1 05/30/20 23 024 Discontinued documented as of this encounter (statuses as of 07/17/2023) Active Problems Problem Noted Date Diagnosed Date [...] as of this encounter (statuses as of 07/17/2023) Resolved Problems Problem Noted Date Diagnosed Date [...] Overview: Per Obesity Taxonomy Coronary atherosclerosis of [place] coronary artery 09/15/2008 10/03/2008 Malaise and fatigue [...] as of this encounter (statuses as of 07/17/2023) Immunizations Name Administration Dates Next Due COVID-19 mRNA, LNP-s, No Pre serve, 2-Dose Series (Tipzu) 11/08/2020,10/11/2020 HEP A - Hepatitis A (Adult > 18 yrs) 04/11/2011, 09/20/2010 Hepatitis B, 20+ yrs 07/05/2015 Pneumococcal Conjugate Vacci ne, 20-valent ([id number]) 03/13/2023 Pneumococcal Polysaccharide PPV23 (Pneumovax) 02/19/2018,03/09/2007 Seasonal [...] encounter Miscellaneous Notes * Telephone Encounter - Polly Mcintyre [facility] - 07/17/2023 6:34 AM ESTSigned Prescriptions: Disp Refills Potassium Chloride ER 10 MEQ Oral Tablet E*180 Ta*1 Sig: TAKE 1 TABLET BY MOUTH TWICE A DAY WITH FOODAuthorizing Provider: SCOTT MONTOYA User: POLLY MCINTYRE Albuterol Sulfate HFA 108 (90 Base) MCG/AC*18 g 2 Sig: INHALE 2 PUFFS BY MOUTH EVERY6 HOURS NEEDED FOR SHORTNESS OF BREATHAuthorizing Provider: SCOTT MONTOYAUser: POLLY MCINTYRE metFORMIN HCl 1000 MG Oral Tablet (Glucoph*180 Ta*1 Sig: TAKE 1 TABLET BY MOUTH 2 TIMES A DAY WITH MORNING AND EVENING MEALSAuthorizing Provider: SCOTT MONTOYA User: POLLY MCINTYRE documented in this encounter Plan of Treatment Upcoming Encounters Date Type Department Care Team (Latest Contact Info) Description 07/29/2023 9:00 AM EST Telemedicine Psychiatry, [address] [address] Rj Mai MD [address] [place] [address] 07/29/2023 12:45 PM EST Hospital Encounter ENDO [facility], Endoscopy Room [facility] [address] [place] [phone] Aj Pruett DO [address] [place] [address] 07/29/2023 12:45 PM EST - 07/29/2023 1:15 PM EST Surgery ENDO [facility], Endoscopy Room [facility] [place] [phone] Aj Pruett DO [address] [place] [address] COLONOSCOPY FLEXIBLE PROXIMAL DIAGNOSTIC 08/05/2023 8:45 AM EST Imaging Radiology [address] 132 [facility] [place] [address] 08/06/2023 1:00 PM EST Telemedicine Pharmacy, [facility] 132 [facility] [place] [address] [place] [address] 08/14/2023 11:00 AM EST Pharmacy Pharmacy, [place] [address] [place] [address] [facility] [address] [place] [address] 08/19/2023 2:15 PM EDT Office Visit Hematology/Oncolog y [facility] 200 [facility] [place] [address] Sunil Bourgeois MD 200 [facility] [place] [address] 09/16/2023 1:20 PM EDT Office Visit Neurology [facility] [place] [address] Yesenia Wayne PA-C 200 [facility] [place], [place] [address] Scheduled Orders Name Type Priority Associated Diagnoses Orde r Schedule LIPID PANEL WITH DIRECT LDL IF TG IS HIGH Lab Routine DM type 2, not at goal (HCC) Expected: 07/17/2023 (Approximate), Expires: 07/17/2024 Scheduled Procedures Name Priority Associated Diagnoses Date/Ti [...] of 2) 06/14/2023 04/19/2023 HbA1c 08/19/2023 02/18/2023, 010 09/2022, 05/03/2022, Additional history exists GFR 12/04/2023 [...] this encounter Medical Devices Implanted Type Area Communication Consultant Device Identifier Shelf Expiration Date Model / Serial / Lot Envelope Tyrx Med Antibacteril - [id number] Implanted:Qty: 1 on 08/22/2022 by Rafia Small MD at OR [facility] N/A: Spine Lumbar [employer] 03/10/2023 [id number] / / [id number] documented as of this encounter Visit Diagnoses Diagnosis HTN, goal below 130/80 Unspecified essential hypertension DM type 2, not at goal (HCC) Type II or unspecified type diabetes mellitus without mention of complication, not stated as uncontrolled Screen for colon cancer Special screening for [...] the patient have Health Care Power of Licensed Bondsman? No Code Status History Code Status Date Activated Date Inactivated Comments Full Code 01/21/2011 12:12 PM 01/22/2011 8:48 PM This order reflects the patients wishes and were consensually agreed upon. Question Answer Comments Discussion of Advance Directives occurred with: Patient Does the patient have a Living Will? No Does the patient have Health Care Power of Licensed Bondsman? No Care Teams Rehabilitation Assistant Relationship Specialty Start Date End Date Scott Montoya MD [address] [place] [address] PCP - General Family Medicine 08/03/18 documented as of this encounter
--- OUTSIDE RECORDS SUMMARY | 2023-08-12 09:20 | External Medical Summary | Summary of Care ---
Author Name Unknown Organization [facility] Address [address] [place] [address] Phone [phone] Care Team Providers Care Library Science Professor Name Role Phone Scott Weldon MD Primary Care Provider + Reason for Visit * Reason Onset Date Comments Medication Refill 07/17/2023 Encounter Details Date Type Department Care Team (Late st Contact Info) Description 07/17/2023 Refill Psychiatry, [address] [address] Rj Mai MD [address] [place] [address] Allergies Active Allergy Reactions Criticality Noted Date [...] Each 5 8 Active Insulin Infusion Pump (MINIMJack On Block 630G INSULIN PUMP) KITIndications:Type 2 diabetes mellitus [...] suspected opioid overdose. Seek immediate medical attention. [email or web address]?[email or web address] 1 Each 3 3 Active hydrOXYzine HCl [...] goal of less than 8.0% ([facility]),DM type 2, not at goal ([facility]) INJECT UP TO 200 UNITS SUBCUTANEOSULY [...] at bedtime. 30 Tablet 2 4 Active Eszopiclone 1 MG Oral Tablet (Lunesta)Indication s:sleep Take 1 Tablet by mouth at bedtime. 30 Tablet 2 3 07/17/19 24 Discontinu ed(Refill) documented as of this [...] Overview: Per Obesity Taxonomy Coronary atherosclerosis of [place] coronary artery 09/15/2008 10/03/2008 Malaise and fatigue [...] mRNA, LNP-s, No Pre serve, 2-Dose Series (tipple.me) 11/08/2020,10/11/2020 HEP A - Hepatitis A (Adult > 18 yrs) 04/11/2011, 09/20/2010 Hepatitis B, 20+ yrs 07/05/2015 Pneumococcal Conjugate Vacci ne, 20-valent (Ulpsrxk12) 03/13/2023 Pneumococcal Polysaccharide PPV23 (Pneumovax) 02/19/2018,03/09/2007 Seasonal [...] encounter Miscellaneous Notes * Telephone Encounter - Rolando Martines DO - 07/17/2023 12:25 PM ESTSigned Prescriptions: Disp Refills Eszopiclone 1 MG Oral Tablet (Lunesta) 30 Tab*2 Sig: Take 1 Tablet by mouth at bedtime.Authorizing Provider: ROLANDO MARTINES * Telephone Encounter - Prisca Orona MED ASSIST - 07/17/2023 11:59 AM EST Pharmacy requesting refill on Lunesta 1mg. Medication was last filled on 04/06/23 with 2 refills. Patient last seen on 02/02/23 with return appointment scheduled for 07/29/23. Patient had 0 cancelled appointments and 2 NO SHOW appointments. documented in this encounter Plan of Treatment Upcoming Encounters Date Type Department Care Team (Latest Contact Info) Description 07/29/2023 9:00 AM EST Telemedicine Psychiatry, [address] [place] [address] Rj Mai MD [address] [place] [address] 07/29/2023 12:45 PM EST Hospital Encounter ENDO [facility], Endoscopy Room [facility] [address] [place] [phone] Aj Pruett, [address] [place] [address] 07/29/2023 12:45 PM EST - 07/29/2023 1:15 PM EST Surgery ENDO [facility], Endoscopy Room [facility] [address] [place] [phone] Aj Pruett, [address] [place] [address] COLONOSCOPY FLEXIBLE PROXIMAL DIAGNOSTIC 08/05/2023 8:45 AM EST Imaging Radiology [address] [place] [address] 08/06/2023 1:00 PM EST Telemedicine Pharmacy, [facility] [place] [address] [facility] [address] 08/14/2023 11:00 AM EST Pharmacy Pharmacy, [place] [address] [facility], [place] [address] [facility] [address] [place] [facility] [address] 08/19/2023 2:15 PM EDT Office Visit Hematology/Oncolog y [facility] [place] [address] [place] [address] Sunil Bourgeois MD [address] [place] [address] 09/16/2023 1:20 PM EDT Office Visit Neurology [facility] [place] [address] [place] [address] Yesenia Wayne PA-C 200 [facility] [place] [address] Scheduled Procedures Name Priority Associated Diagnoses Date/Ti [...] season) 2023 11/08/2020, 10/11/2020 B-12 06/11/2023 06/11/2022, 01/0 12/2020, 07/05/2019, Additional history exists Zoster Vaccines (2 of 2) 06/14/2023 04/19/2023 HbA1c 08/19/2023 02/18/2023, 01/0 09/2022, 05/03/2022, Additional history exists GFR 12/04/2023 [...] this encounter Medical Devices Implanted Type Area Care Program Director Device Identifier Shelf Expiration Date Model / Serial / Lot Envelope Tyrx Med Antibacteril - [id number] Implanted:Qty: 1 on 08/22/2022 by Rafia Small MD at OR [facility] N/A: Spine Lumbar [employer] 03/10/2023 [id number] / / [id number] documented as of this encounter Advance Directives [...] the patient have Health Care Power of Lining Finisher? No Code Status History Code Status Date Activated Date Inactivated Comments Full Code 01/21/2011 12:12 PM 01/22/2011 8:48 PM This order reflects the patients wishes and were consensually agreed upon. Question Answer Comments Discussion of Advance Directives occurred with: Patient Does the patient have a Living Will? No Does the patient have Health Care Power of Lining Finisher? No Care Teams Library Science Professor Relationship Specialty Start Date End Date Scott Weldon MD [address] [place] [address] PCP - General Family Medicine 08/03/18 documented as of this encounter
--- OUTSIDE RECORDS SUMMARY | 2023-08-12 09:20 | External Medical Summary | Summary of Care ---
Author Name Unknown Organization [facility] Address 100 [facility] [place] [address] Phone [phone] Care Team Providers Care Rat Poisoner Name Role Phone Scott Weldon MD Primary Care Provider + Reason for Visit * Reason Onset Date Comments Appointment 07/04/2023 MRI Encounter Details Date Type Department Care Team (Late st Contact Info) Description 07/04/2023 Telephone Rad[address] 132 [facility] [place] [address] Nai Munguia, RT (R) Appointment (MRI) Allergies Active Allergy Reactions Criticality Noted Date Comments Naproxen Sodium Bleeding High 11/29/2013 Pollen 12/03/2022 Seasonal Food (See Comments) Anaphylaxis High 04/20/2019 Hot peppers (oils) Kiwi Extract Anaphylaxis High 04/20/2019 documented as of this encounter (statuses as of 07/04/2023) Medications Medication Sig Dispensed Refills Start Date [...] Each 5 8 Active Insulin Infusion Pump (MINIMBanyan 630G INSULIN PUMP) KITIndications:Type 2 diabetes mellitus [...] as of this encounter (statuses as of 07/04/2023) Active Problems Problem Noted Date Diagnosed Date [...] as of this encounter (statuses as of 07/04/2023) Resolved Problems Problem Noted Date Diagnosed Date [...] Overview: Per Obesity Taxonomy Coronary atherosclerosis of [place] coronary artery 09/15/2008 10/03/2008 Malaise and fatigue [...] as of this encounter (statuses as of 07/04/2023) Immunizations Name Administration Dates Next Due COVID-19 mRNA, LNP-s, No Pre serve, 2-Dose Series ([employer]) 11/08/2020,10/11/2020 HEP A - Hepatitis A (Adult > 18 yrs) 04/11/2011, 09/20/2010 Hepatitis B, 20+ yrs 07/05/2015 Pneumococcal Conjugate Vacci ne, 20-valent (Yobfyow44) 03/13/2023 Pneumococcal Polysaccharide PPV23 (Pneumovax) 02/19/2018,03/09/2007 Seasonal [...] encounter Miscellaneous Notes * Telephone Encounter - Nai Munguia RT (R) - 07/04/2023 4:09 PM EST Patient cannot come, no ride. Reminded her that stimulator will need to be charged when she is rescheduled. documented in this encounter Plan of Treatment Upcoming Encounters Date Type Department Care Team (Latest Contact Info) Description 07/06/2023 2:30 PM EST Imaging Radiology [facility]st [facility] [place] 132 [facility] [place] [address] 07/29/2023 9:00 AM EST Telemedicine [address]iatry, [address] [address] Rj Mai MD [address] [facility] [address] 07/29/2023 12:45 PM EST Hospital Encounter ENDO [facility], Endoscopy Room [facility] [address] [place], [place] [phone] Aj Pruett, DO [address] [place] [address] 07/29/2023 12:45 PM EST - 07/29/2023 1:15 PM EST Surgery ENDO [facility], Endoscopy Room [facility] [address] [place] [phone] Aj Pruett, DO [address] [place] [address] COLONOSCOPY FLEXIBLE PROXIMAL DIAGNOSTIC 08/06/2023 1:00 PM EST Telemedicine Pharmacy, [facility] [address] [facility] [address] 08/14/2023 11:00 AM EST Pharmacy Pharmacy, [address] [address] 08/19/2023 2:15 PM EDT Office Visit Hematology/Oncology [facility] [place] [address] [place] [address] Sunil Bourgeois MD [address] [place] [address] Scheduled Procedures Name Priority Associated Diagnoses Date/Ti me COLONOSCOPY FLEXIBLE PROXIMAL DIAGNOSTIC Screen for colon cancer 07/29/2023 12:45 PM EST Health Maintenance Due Date Last Done Comments HPV/Co-Test 2002 Cervical Cancer Screening 04/12/2018 Pap Smear 04/12/2018 04/12/2015, 110 10/2014, 09/28/2008, Additional history exists Mammogram 05/07/2019 05/07/2018, 01/21/2016 COLONOSCOPY-EVERY 5 YRS AGES 18-100 06/27/2020 06/27/2015, 06/27/2015, 06/06/2010, Additional history exists Diabetic Eye Exam 01/16/2023 01/16/2022, , 02/12/2016, Additional history exists COVID-19 Vaccine (3 - 2022- season) 2023 11/08/2020, 10/11/2020 B-12 06/11/2023 06/11/2022, 01/0 12/2020, 07/05/2019, Additional history exists Zoster Vaccines (2 of 2) 06/14/2023 04/19/2023 HbA1c 08/19/2023 02/18/2023, 01/0 09/2022, 05/03/2022, Additional history exists GFR 12/04/2023 12/03/2022, 01/0 09/2022, 03/11/2022, Additional history exists Depression Screening [...] this encounter Medical Devices Implanted Type Area Car Ferry Captain Device Identifier Shelf Expiration Date Model / Serial / Lot Envelope Tyrx Med Antibacteril - [id number] Implanted:Qty: 1 on 08/22/2022 by Rafia Small MD at OR [facility] N/A: Spine Lumbar [employer] 03/10/2023 [id number] / / [id number] documented as of this encounter Advance Directives [...] the patient have Health Care Power of Analytical Strategist? No Code Status History Code Status Date Activated Date Inactivated Comments Full Code 01/21/2011 12:12 PM 01/22/2011 8:48 PM This order reflects the patients wishes and were consensually agreed upon. Question Answer Comments Discussion of Advance Directives occurred with: Patient Does the patient have a Living Will? No Does the patient have Health Care Power of Analytical Strategist? No Care Teams Rat Poisoner Relationship Specialty Start Date End Date Scott Weldon MD [address] [place] [address] PCP - General Family Medicine 08/03/18 documented as of this encounter
--- OUTSIDE RECORDS SUMMARY | 2023-08-12 09:20 | External Medical Summary | Summary of Care ---
Author Name Unknown Organization [facility] Address 100 [facility] [place] [address] Phone [phone] Care Team Providers Care Gaggerman Name Role Phone Scott Weldon MD Primary Care Provider + Reason for Visit * Reason Onset Date Comments Medication Question 04/14/2023 Encounter Details Date Type Department Care Team (Late st Contact Info) Description 04/14/2023 Telephone Pharmacy Call Center [phone] [place] [address] [facility] 132 [facility] [place] [address] Medication Question Allergies Active Allergy Reactions Criticality Noted Date Comments Naproxen Sodium Bleeding High 11/29/2013 Pollen 12/03/2022 Seasonal Food (See Comments) Anaphylaxis High 04/20/2019 Hot peppers (oils) Kiwi Extract Anaphylaxis High 04/20/2019 documented as of this encounter (statuses as of 07/14/2023) Medications Medication Sig Dispensed Refills Start Date End Date Status ONETOUCH ULTRASOFT LANCETS MISCIndications:DM type 2, not at goal (HCC) check FS 6 times daily 4 Box 5 06/22/2014 Active Insulin Syringe-Needle U-100 (BD INSULIN SYRINGE) 30G X 1/2" 0.5 ML MISC 3 daily injection in case of pump malfunction 100 Box Dosing Unit 3 12/31/2015 Active insulin glargine (LANTUS SOLOSTAR) 100 UNIT/ML SOPN 50 units daily in case of pump malfunction 5 Pre-filled Pen Syringe Dosing Unit 3 12/31/2015 Active B-D Ultrafine III, 5MM, Pen MISC Use as directed. 100 Pre-filled Pen Syringe Dosing Unit 3 12/31/2015 Active Glucose Blood (SYLVIA CONTOUR NEXT TEST) STRP Use to test blood sugar up to 6 times per day. E11.9 These are the ONLY test strips patient can use with insulin pump 200 Strip 5 02/17/2017 Active Insulin Pen Needle (BD PEN NEEDLE MINI U/F) 31G X 5 MMIndications:Type 2 diabetes mellitus with hemoglobin A1c goal of less than 8.0% (HCC) Use with Victoza once daily 100 Each 5 06/15/2017 Active Insulin Infusion Pump (MINIMCogMetal 630G INSULIN PUMP) KITIndications:Type 2 diabetes mellitus with hemoglobin A1c goal of less than 8.0% (HCC) Use as directed. 0 07/30/2017 Active metFORMIN HCl 1000 MG Oral Tablet (Glucophage)Indicati ons:DM type 2, not at goal (HCC) TAKE 1 TABLET BY MOUTH 2 TIMES A DAY WITH MORNING AND EVENING MEALS 180 Tablet 3 07/03/2022 Active CPAP every night at bedtime. 0 Active Glucagon Emergency 1 MG Injection Kit As directed 1 Kit 3 09/04/2022 Active Atorvastatin Calcium 40 MG Oral Tablet (Lipitor)Indications :Dyslipidemia, goal LDL below 100 Take 1 Tablet by mouth in the morning. 90 Tablet 3 09/08/2022 Active Additional Information Patient taking differently:40 mg OralHS, Reported on 10/06/2022 Magnesium Oxide 400 (240 Mg) MG Oral Tablet (Mag-Ox)Indications: Hypomagnesemia TAKE 1 TABLET BY MOUTH EVERY DAY 90 Tablet 3 10/05/2022 Active Escitalopram Oxalate 20 MG Oral Tablet (Lexapro) Take 1 Tablet by mouth in the morning. 90 Tablet 1 11/04/2022 Active Ozempic (1 MG/DOSE) 4 MG/3ML Subcutaneous Solution Pen-injector (Semaglutide (1 MG/DOSE))Indications :Type 2 diabetes mellitus with hemoglobin A1c goal of less than 8.0% (HCC) Inject 1 mg under the skin once a week. Dose increase 3 mL 1 11/05/2022 Active Dicyclomine HCl 20 MG Oral Tablet (Bentyl) Take 1 Tablet by mouth 2 times a day as needed for Pain or Cramping. 180 Tablet 3 11/14/2022 Active Naloxone HCl 4 MG/0.1ML Nasal Liquid (Narcan Nasal)Indications:Co ntrolled substance agreement signed,Chronic pain syndrome Administer 1 spray into 1 nostril for suspected opioid overdose. Seek immediate medical attention. [email or web address]://[email or web address] 1 Each 3 11/27/2022 Active Potassium Chloride ER 10 MEQ Oral Tablet Extended ReleaseIndications:H TN, goal below 130/80 TAKE 1 TABLET BY MOUTH TWICE A DAY WITH FOOD 180 Tablet 1 01/15/2023 Active hydrOXYzine HCl 25 MG Oral Tablet Take 1 tab during the day every 4-6 hours as needed for anxiety and take 2 tabs at bedtime as needed for anxiety 120 Tablet 3 02/02/2023 Active Omeprazole 20 MG Oral Capsule Delayed Release (PriLOSEC)Indication s:Gastroesophageal reflux disease without esophagitis TAKE 1 CAPSULE BY MOUTH TWICE A DAY 180 Capsule 1 03/05/2023 Active Eszopiclone 1 MG Oral Tablet (Lunesta)Indications :sleep Take 1 Tablet by mouth at bedtime. 30 Tablet 2 04/06/2023 Active Atenolol 100 MG Oral Tablet (Tenormin)Indication s:Tachycardia TAKE 1 TABLET BY MOUTH TWICE A DAY 180 Tablet 3 04/09/2023 Active Loratadine 10 MG Oral Tablet (Claritin)Indication s:Allergic rhinitis TAKE 1 TABLET BY MOUTH IN THE MORNING FOR ALLERGIES. 90 Tablet 1 04/13/2023 Active Metoclopramide HCl 5 MG Oral Tablet (Reglan) Take 1 Tablet by mouth in the morning and 1 Tablet at noon and 1 Tablet in the evening. Take before meals. If needed for nausea. 30 Tablet 0 04/15/2023 Active Meclizine HCl 25 MG Oral Tablet (Antivert)Indication s:Vertigo Take 1 Tablet by mouth 3 times a day as needed for Dizziness. 30 Tablet 1 04/15/2023 Active Ondansetron 8 MG Oral Tablet Disintegrating (Zofran) Place 1 Tablet on tongue every 8 hours as needed for Nausea. dissolve on tongue. 90 Tablet 2 04/18/2023 Active documented as of this encounter (statuses as of 07/14/2023) Active Problems Problem Noted Date Diagnosed Date [...] as of this encounter (statuses as of 07/14/2023) Resolved Problems Problem Noted Date Diagnosed Date [...] Overview: Per Obesity Taxonomy Coronary atherosclerosis of [place] coronary artery 09/15/2008 10/03/2008 Malaise and fatigue [...] as of this encounter (statuses as of 07/14/2023) Immunizations Name Administration Dates Next Due COVID-19 mRNA, LNP-s, No Pre serve, 2-Dose Series (Pfizer) 11/08/2020,10/11/2020 HEP A - Hepatitis A (Adult > 18 yrs) 04/11/2011, 09/20/2010 Hepatitis B, 20+ yrs 07/05/2015 Pneumococcal Conjugate Vacci ne, 20-valent ([id number]) 03/13/2023 Pneumococcal Polysaccharide PPV23 (Pneumovax) 02/19/2018,03/09/2007 Seasonal [...] Telephone Encounter - Radha Mckeon RPh - 04/14/2023 9:49 AM EST Spoke to patient via phone. Patient potentially candidate for pace/pace net or other prescription medication help for the new year when her copay would triple. Pharmacy Reimbursement, can you please reach out to the patient to help with pace/pacenet? Thank you, Radha Mckeon, Pharm D, [facility] Clinical Pharmacist 04/14/2023, 9:49 AM * Telephone Encounter - Mayra Blake PHARM Tech - 04/14/2023 9:07 AM EST Caller's name: Pt Preferred call back number(OFFICE NUMBER FOR ): [phone] Reason for call: Pt inquiring what to do about her pain patch that is now going from a tier 2 to a tier 4 through SEVER[facility] Rutledge. Pt is asking if there is another drug that would be on a tier 2, for her pain. Please advise pt. Mayra Blake Banquet Waiter/Waitress Centralized Clinical Pharmacy Services (CCPS) (Formerly Telepharmacy) 04/14/2023, 9:07 AM documented in this encounter Plan of Treatment Upcoming Encounters Date Type Department Care Team (Latest Contact Info) Description 07/29/2023 9:00 AM EST Telemedicine Psychiatry, [address] [place] [address] Rj Mai MD [address] [place] [place] [place] [address] 07/29/2023 12:45 PM EST Hospital Encounter ENDO [facility], Endoscopy Room [facility] [address] [place] [address] Aj Pruett, DO [address] [place] [address] 07/29/2023 12:45 PM EST - 07/29/2023 1:15 PM EST Surgery ENDO [facility], Endoscopy Room [facility] [address] [place] [address] Aj Pruett, DO [address] [place] [address] COLONOSCOPY FLEXIBLE PROXIMAL DIAGNOSTIC 08/05/2023 8:45 AM EST Imaging Radiology [facility] 132 [facility] [place] [address] 08/06/2023 1:00 PM EST Telemedicine Pharmacy, [facility] 132 [facility] [place] [address] [place] [address] 08/14/2023 11:00 AM EST Pharmacy Pharmacy, [address] [place] [address] [place] [address] 08/19/2023 2:15 PM EDT Office Visit Hematology/Oncolog y [facility] 200 [facility] [place], [place] [address] Sunil Bourgeois MD [address] [place] [address] 09/16/2023 1:20 PM EDT Office Visit Neurology [facility] [place] [address] [facility] [place] [address] Yesenia Wayne PA-C 200 [facility] [place] [address] Scheduled Procedures Name Priority Associated Diagnoses Date/Ti [...] this encounter Medical Devices Implanted Type Area Tree Scout Device Identifier Shelf Expiration Date Model / Serial / Lot Envelope Tyrx Med Antibacteril - [id number] Implanted:Qty: 1 on 08/22/2022 by Rafia Small MD at OR [facility] N/A: Spine Lumbar [employer] 03/10/2023 [id number] / / [id number] documented as of this encounter Advance Directives [...] the patient have Health Care Power of Farm Truck Driver? No Code Status History Code Status Date Activated Date Inactivated Comments Full Code 01/21/2011 12:12 PM 01/22/2011 8:48 PM This order reflects the patients wishes and were consensually agreed upon. Question Answer Comments Discussion of Advance Directives occurred with: Patient Does the patient have a Living Will? No Does the patient have Health Care Power of Farm Truck Driver? No Care Teams Gaggerman Relationship Specialty Start Date End Date Scott Weldon MD 132 [place] [address] PCP - General Family Medicine 08/03/18 documented as of this encounter
--- OUTSIDE RECORDS SUMMARY | 2023-08-12 09:21 | External Medical Summary | Summary of Care ---
Author Name Unknown Organization [facility] Address 100 [facility] [place] [address] Phone [phone] Care Team Providers Care Preparation Supervisor Freezing Name Role Phone Scott Weldon MD Primary Care Provider + Encounter Details Date Type Department Care Team (Late st Contact Info) Description 06/18/2023 Population Health External Data Unspecified Department Allergies Active Allergy Reactions Criticality Noted Date Comments Naproxen Sodium Bleeding High 11/29/2013 Pollen 12/03/2022 Seasonal Food (See Comments) Anaphylaxis High 04/20/2019 Hot peppers (oils) Kiwi Extract Anaphylaxis High 04/20/2019 documented as of this encounter (statuses as of 06/22/2023) Medications Medication Sig Dispensed Refills Start Date [...] of liver with ascites, unspecified hepatic cirrhosis type,Edema, unspecified type TAKE 1 TABLET BY MOUTH EVERY DAY IN THE MORNING 90 Tablet 1 3 Active Ondansetron 8 MG Oral Tablet Disintegrating (Zofran) Place 1 Tablet on tongue every 8 hours as needed for Nausea. dissolve on tongue. 90 Tablet 2 3 Active Baclofen 10 MG Oral Tablet (Lioresal)Indication s:muscle spasms Take 1 Tablet by mouth 3 times a day as needed for Muscle spasms. 90 Tablet 5 3 Active NovoLIN R ReliOn 100 UNIT/ML Injection Solution (insulin REGULAR human)Indications:Ty pe 2 diabetes mellitus with hemoglobin A1c goal of less than 8.0% ([facility]),DM type 2, not at goal ([facility]) INJECT UP TO 200 UNITS SUBCUTANEOSULY ONCE DAILY VIA PUMP 60 mL 0 3 Active traZODone HCl 100 MG Oral Tablet (Desyrel) Take 1-2 Tablets by mouth at bedtime. 180 Tablet 1 3 Active Buprenorphine 5 MCG/HR Transdermal Patch Weekly (Butrans) Place 1 Patch topically on the skin once a week. 4 Patch 0 3 Active Albuterol Sulfate HFA 108 (90 [...] BEFORE BEDTIME 270 Capsule 1 3 Active documented as of this encounter (statuses as of 06/22/2023) Active Problems Problem Noted Date Diagnosed Date [...] as of this encounter (statuses as of 06/22/2023) Resolved Problems Problem Noted Date Diagnosed Date [...] Overview: Per Obesity Taxonomy Coronary atherosclerosis of [place] coronary artery 09/15/2008 10/03/2008 Malaise and fatigue [...] as of this encounter (statuses as of 06/22/2023) Immunizations Name Administration Dates Next Due COVID-19 mRNA, LNP-s, No Pre serve, 2-Dose Series (Pfizer) 11/08/2020,10/11/2020 HEP A - Hepatitis A (Adult > 18 yrs) 04/11/2011, 09/20/2010 Hepatitis B, 20+ yrs 07/05/2015 Pneumococcal Conjugate Vacci ne, 20-valent ([id number]) 03/13/2023 Pneumococcal Polysaccharide PPV23 (Pneumovax) 02/19/2018,03/09/2007 Seasonal [...] 07/02/2023 10:40 AM EST Office Visit Neurology [facility] 200 [facility] [place] [address] Monica Shrestha MD [address] [facility] [place] [address] 07/06/2023 2:30 PM EST Imaging Radiology [address] [place] [address] 07/29/2023 12:45 PM EST Hospital Encounter ENDO [facility], Endoscopy Room [facility] [address] [place] [phone] Aj Pruett, DO [address] [place] [address] 07/29/2023 12:45 PM EST - 07/29/2023 1:15 PM EST Surgery ENDO [facility], Endoscopy Room [facility] [address] [place] [phone] Aj Pruett, DO [address] [place] [address] COLONOSCOPY FLEXIBLE PROXIMAL DIAGNOSTIC 08/06/2023 1:00 PM EST Telemedicine Pharmacy, [facility] 132 [facility], [place] [address] [facility] [place] [address] 08/14/2023 11:00 AM EST Pharmacy Pharmacy, [place] [address] [facility] [address] [facility] [address] [facility], [place] [address] 08/19/2023 2:15 PM EDT Office Visit Hematology/Oncolog y [facility] [address] [place] [address] Sunil Bourgeois MD [address] [place] [address] Scheduled Procedures Name Priority Associated Diagnoses Date/Ti [...] Additional history exists Lipid Panel 03/11/2027 03/11/2022, 11/2019, 08/18/2018, Additional history exists DTaP,Tdap,and Td [...] this encounter Medical Devices Implanted Type Area Apartment House Manager Device Identifier Shelf Expiration Date Model / Serial / Lot Envelope Tyrx Med Antibacteril - [id number] Implanted:Qty: 1 on 08/22/2022 by Rafia Small MD at OR [facility] N/A: Spine Lumbar [employer] 03/10/2023 [id number] / / [id number] documented as of this encounter Advance Directives [...] the patient have Health Care Power of Automatic Lathe Tender? No Code Status History Code Status Date Activated Date Inactivated Comments Full Code 01/21/2011 12:12 PM 01/22/2011 8:48 PM This order reflects the patients wishes and were consensually agreed upon. Question Answer Comments Discussion of Advance Directives occurred with: Patient Does the patient have a Living Will? No Does the patient have Health Care Power of Automatic Lathe Tender? No Care Teams Preparation Supervisor Freezing Relationship Specialty Start Date End Date Scott Weldon MD [address] [place] [address] PCP - General Family Medicine 08/03/18 documented as of this encounter
--- OUTSIDE RECORDS SUMMARY | 2023-08-12 09:21 | External Medical Summary | Summary of Care ---
Author Name Unknown Organization [facility] Address 100 [facility] [place] [address] Phone [phone] Care Team Providers Care Supervisor Dimension Warehouse Name Role Phone Scott Montoya MD Primary Care Provider + Reason for Visit * Reason Onset Date Comments Medication Refill 06/28/2023 Encounter Details Date Type Department Care Team (Late st Contact Info) Description 06/28/2023 Refill Family Practice [facility] [address] [place] [address] Scott Montoya MD [address] [place] [address] Allergies Active Allergy Reactions Criticality Noted Date Comments Naproxen Sodium Bleeding High 11/29/2013 Pollen 12/03/2022 Seasonal Food (See Comments) Anaphylaxis High 04/20/2019 Hot peppers (oils) Kiwi Extract Anaphylaxis High 04/20/2019 documented as of this encounter (statuses as of 06/29/2023) Medications Medication Sig Dispensed Refills Start Date [...] suspected opioid overdose. Seek immediate medical attention. [email or web address]://[email or web address]/[email or web address]?v=[email or web address] 1 Each 3 3 Active Potassium Chloride [...] 8.0% (HCC),DM type 2, not at goal ([place] [facility] [...] once a week. 4 Patch 0 3 06/28/19 24 Discontinu ed(Refill) documented as of this encounter (statuses as of 06/29/2023) Active Problems Problem Noted Date Diagnosed Date [...] as of this encounter (statuses as of 06/29/2023) Resolved Problems Problem Noted Date Diagnosed Date [...] Per Obesity Taxonomy Coronary atherosclerosis of [place] coronary artery 09/15/2008 10/03/2008 Malaise and fatigue [...] as of this encounter (statuses as of 06/29/2023) Immunizations Name Administration Dates Next Due COVID-19 mRNA, LNP-s, No Pre serve, 2-Dose Series (Datezr) 11/08/2020,10/11/2020 HEP A - Hepatitis A (Adult > 18 yrs) 04/11/2011, 09/20/2010 Hepatitis B, 20+ yrs 07/05/2015 Pneumococcal Conjugate Vacci ne, 20-valent ([id number]) 03/13/2023 Pneumococcal Polysaccharide PPV23 (Pneumovax) 02/19/2018,03/09/2007 Seasonal [...] Telephone Encounter - Scott Montoya MD - 06/29/2023 10:47 PM EST Signed Prescriptions: Disp Refills Buprenorphine 5 MCG/HR Transdermal Patch W*4 Patch0 Sig: Place 1 Patch topically on the skin once a week. Authorizing Provider: SCOTT MONTOYA * Telephone Encounter - Gissel Gates, [facility] - 06/29/2023 4:06 PM ESTPending Prescriptions: Disp Refills Buprenorphine 5 MCG/HR Transdermal Patch W*4 Patch0 Sig: Place 1 Patch topically on the skin once a week. * Telephone Encounter - Gissel Gates [facility] - 06/29/2023 4:05 PM EST I have reviewed the patients controlled substance dispensing history in the Prescription Drug Monitoring Program in compliance with the [facility] regulations before prescribing a controlled substance. PDMP checked on 06/29/2023. Pending Prescriptions: Disp Refills Buprenorphine 5 MCG/HR Transdermal Patch *4 Patch0 Sig: Place 1 Patch topically on the skin once a week. Last Visit: 03/13/2023 (in office), 09/08/2022 (telemedicine) Next Visit: Visit date not found Date medication was last filled: 06/03/23 Date medication is due for refill: 06/30/23 Pharmacy: [id number] Is this request for a controlled [...] Results Review. Please approve if appropriate. Thanks, Gissel Gates, PharmD Clinical Pharmacist Centralized Clinical Pharmacy Services (CCPS - Formerly Telepharmacy) [phone] 06/29/2023 4:05 PM documented in this encounter Plan of Treatment Upcoming Encounters Date Type Department Care Team (Latest Contact Info) Description 07/02/2023 10:40 AM EST Office Visit Neurology [facility] [address] [facility] [place] [address] Monica Shrestha MD [address] [place] [address] 07/06/2023 2:30 PM EST Imaging Radiology [address] [facility] [place] [address] 07/29/2023 9:00 AM EST Telemedicine Psychiatry, [facility] [address] [facility] [place] [address] Rj Mai MD [address] [place] [address] 07/29/2023 12:45 PM EST Hospital Encounter ENDO [facility], Endoscopy Room [facility] [address] [place] [phone] Aj Pruett DO [address] [place] [address] 07/29/2023 12:45 PM EST - 07/29/2023 1:15 PM EST Surgery ENDO [facility], Endoscopy Room [facility] [address] [place], [place] [phone] Aj Pruett, [address] [place], [place] [address] COLONOSCOPY FLEXIBLE PROXIMAL DIAGNOSTIC 08/06/2023 1:00 PM EST Telemedicine Pharmacy, [facility] [address] [place] [address] [facility] [address] 08/14/2023 11:00 AM EST Pharmacy Pharmacy, [address] [address] [place] [address] [facility], [place] [address] 08/19/2023 2:15 PM EDT Office Visit Hematology/Oncolog y [facility] [place] [address] [place] [address] Sunil Bourgeois MD [address] [place] [address] Scheduled Procedures Name Priority Associated Diagnoses Date/Ti [...] this encounter Medical Devices Implanted Type Area Interior Decorator Paperhanging Device Identifier Shelf Expiration Date Model / Serial / Lot Envelope Tyrx Med Antibacteril - [id number] Implanted:Qty: 1 on 08/22/2022 by Rafia Small MD at OR [facility] N/A: Spine Lumbar [employer] 03/10/2023 [id number] / / [id number] documented as of this encounter Advance Directives [...] the patient have Health Care Power of Political Consultant? No Code Status History Code Status Date Activated Date Inactivated Comments Full Code 01/21/2011 12:12 PM 01/22/2011 8:48 PM This order reflects the patients wishes and were consensually agreed upon. Question Answer Comments Discussion of Advance Directives occurred with: Patient Does the patient have a Living Will? No Does the patient have Health Care Power of Political Consultant? No Care Teams Supervisor Dimension Warehouse Relationship Specialty Start Date End Date Scott Montoya MD [address] [place] [address] PCP - General Family Medicine 08/03/18 documented as of this encounter
--- OUTSIDE RECORDS SUMMARY | 2023-08-12 09:21 | External Medical Summary | Summary of Care ---
Author Name Unknown Organization [facility] Address [address] [facility] [place] [address] Phone [phone] Care Team Providers Care Hvac/R Instructor Name Role Phone Scott Weldon MD Primary Care Provider + Reason for Visit * Reason Onset Date Comments Pre Op Discussion 03/23/2023 Encounter Details Date Type Department Care Team (Late st Contact Info) Description 03/23/2023 Telephone OR [facility], Operating Room [facility] [address] [place] [address] Aj Pruett DO [address] [place] [address] Pre Op Discussion Allergies Active Allergy Reactions Criticality Noted Date [...] Each 5 06/15/2017 Active Insulin Infusion Pump (MINIMED 630G INSULIN [...] suspected opioid overdose. Seek immediate medical attention. [email or web address]?[email or web address] 1 Each 3 11/27/2022 Active Potassium Chloride [...] A DAY 180 Capsule 1 03/05/2023 Active documented as of this encounter (statuses [...] Overview: Per Obesity Taxonomy Coronary atherosclerosis of [place] coronary artery 09/15/2008 10/03/2008 Malaise and fatigue [...] mRNA, LNP-s, No Pre serve, 2-Dose Series ([employer]) 11/08/2020,10/11/2020 HEP A - Hepatitis A (Adult > 18 yrs) 04/11/2011, 09/20/2010 Hepatitis B, 20+ yrs 07/05/2015 Pneumococcal Conjugate Vacci ne, 20-valent ([id number]) 03/13/2023 Pneumococcal Polysaccharide PPV23 (Pneumovax) 02/19/2018,03/09/2007 Seasonal [...] encounter Miscellaneous Notes * Telephone Encounter - Leonarda Mccabe RN - 03/23/2023 8:54 AM EDT Called patient for pre anesthesia evaluation for upcoming procedure ,no answer/ unable to leave message/ sent My G documented in this encounter Plan of Treatment Upcoming Encounters Date Type Department Care Team (Latest Contact Info) Description 07/02/2023 10:40 AM EST Office Visit Neurology [facility] [address] [facility] [place] [address] Monica Shrestha MD 200 [facility] [place] [address] 07/06/2023 2:30 PM EST Imaging Radiology [address] [place] [address] 07/29/2023 12:45 PM EST Hospital Encounter ENDO [facility], Endoscopy Room [facility] [address] [place] [phone] Aj Pruett, DO [address] [place] [address] 07/29/2023 12:45 PM EST - 07/29/2023 1:15 PM EST Surgery ENDO [facility], Endoscopy Room [facility] [address] [place] [phone] Aj Pruett, DO [address] [place] [address] COLONOSCOPY FLEXIBLE PROXIMAL DIAGNOSTIC 08/06/2023 1:00 PM EST Telemedicine Pharmacy, [facility] [address] [place] [address] [facility] [address] [place] [address] 08/14/2023 11:00 AM EST Pharm[address] Pharmacy, [address] [address] [facility] [address] [place] [address] 08/19/2023 2:15 PM EDT Office Visit Hematology/Oncolog y [place] [facility] [place] [address] Sunil Bourgeois MD [address] [place] [address] Scheduled Procedures Name Priority Associated Diagnoses Date/Ti [...] , 02/12/2016, Additional history exists COVID-19 Vaccine (2022- season) [...] this encounter Medical Devices Implanted Type Area Middleware Administrator Device Identifier Shelf Expiration Date Model / Serial / Lot Envelope Tyrx Med Antibacteril - [id number] Implanted:Qty: 1 on 08/22/2022 by Rafia Small MD at OR [facility] N/A: Spine Lumbar [employer] 03/10/2023 [id number] / / [id number] documented as of this encounter Advance Directives [...] the patient have Health Care Power of Blood Donor Recruiter? No Code Status History Code Status Date Activated Date Inactivated Comments Full Code 01/21/2011 12:12 PM 01/22/2011 8:48 PM This order reflects the patients wishes and were consensually agreed upon. Question Answer Comments Discussion of Advance Directives occurred with: Patient Does the patient have a Living Will? No Does the patient have Health Care Power of Blood Donor Recruiter? No Care Teams Hvac/R Instructor Relationship Specialty Start Date End Date Scott Weldon MD 132 [place] [address] PCP - General Family Medicine 08/03/18 documented as of this encounter
--- OUTSIDE RECORDS SUMMARY | 2023-08-12 09:21 | External Medical Summary | Summary of Care ---
Author Name Unknown Organization [facility] Address [facility] [place] [address] Phone [phone] Care Team Providers Care Marketing Development Manager Name Role Phone Scott Weldon MD Primary Care Provider + Reason for Visit * Reason Onset Date Comments Medication Management 06/25/2023 Encounter Details Date Type Department Care Team (Late st Contact Info) Description 06/25/2023 Telephone Family Practice [facility] [address] [place] [address] Scott Weldon MD [address] [place] [address] Medication Management Allergies Active Allergy Reactions Criticality Noted Date Comments Naproxen Sodium Bleeding High 11/29/2013 Pollen 12/03/2022 Seasonal Food (See Comments) Anaphylaxis High 04/20/2019 Hot peppers (oils) Kiwi Extract Anaphylaxis High 04/20/2019 documented as of this encounter (statuses as of 06/25/2023) Medications Medication Sig Dispensed Refills Start Date [...] suspected opioid overdose. Seek immediate medical attention. https://www.[email or web address] .com/watch?v=v26cDa [email or web address] 1 Each 3 3 Active [...] 8.0% (HCC),DM type 2, not at goal ([facility]) INJECT UP TO 200 UNITS [...] as of this encounter (statuses as of 06/25/2023) Active Problems Problem Noted Date Diagnosed Date [...] as of this encounter (statuses as of 06/25/2023) Resolved Problems Problem Noted Date Diagnosed Date [...] Overview: Per Obesity Taxonomy Coronary atherosclerosis of [place] coronary artery 09/15/2008 10/03/2008 Malaise and fatigue [...] as of this encounter (statuses as of 06/25/2023) Immunizations Name Administration Dates Next Due COVID-19 mRNA, LNP-s, No Pre serve, 2-Dose Series ([employer]) 11/08/2020,10/11/2020 HEP A - Hepatitis A (Adult > 18 yrs) 04/11/2011, 09/20/2010 Hepatitis B, 20+ yrs 07/05/2015 Pneumococcal Conjugate Vacci ne, 20-valent (Oicnqij33) 03/13/2023 Pneumococcal Polysaccharide PPV23 (Pneumovax) 02/19/2018,03/09/2007 Seasonal [...] encounter Miscellaneous Notes * Telephone Encounter - Alison Ellison LPN - 06/25/2023 12:45 PM EST Pt's picked up pt assistance program medication ozempic and novolog today documented in this encounter Plan of Treatment Upcoming Encounters Date Type Department Care Team (Latest Contact Info) Description 07/02/2023 10:40 AM EST Office Visit Neurology [facility] [address] [place] [address] Monica Shrestha MD [address] [place] [address] 07/06/2023 2:30 PM EST Imaging Radiology [address] 132 [facility] [place] [address] 07/29/2023 9:00 AM EST Telemedicine Psychiatry, [facility] [address] [place] [address] Rj Mai MD [address] [place] [address] 07/29/2023 12:45 PM EST Hospital Encounter ENDO [facility], Endoscopy Room [facility] [address] [place], [place] [address] Aj Pruett, DO [address] [place] [address] 07/29/2023 12:45 PM EST - 07/29/2023 1:15 PM EST Surgery ENDO [facility], Endoscopy Room [facility] [address] [place] [place] [address] Aj Pruett, DO [address] [place] [address] COLONOSCOPY FLEXIBLE PROXIMAL DIAGNOSTIC 08/06/2023 1:00 PM EST Telemedicine Pharmacy, [facility] 132 [facility] [place] [address] [facility] 132 [place] [address] 08/14/2023 11:00 AM EST Pharmacy Pharmacy, [address] [address] 08/19/2023 2:15 PM EDT Office Visit Hematology/Oncolog y [facility] [place] [address] [place] [address] Sunil Bourgeois MD [address] [place] [place] [address] Scheduled Procedures Name Priority Associated Diagnoses Date/Ti [...] this encounter Medical Devices Implanted Type Area Copy Reader Device Identifier Shelf Expiration Date Model / Serial / Lot Envelope Tyrx Med Antibacteril - [id number] Implanted:Qty: 1 on 08/22/2022 by Rafia Small MD at OR [facility] N/A: Spine Lumbar [employer] 03/10/2023 [id number] / / [id number] documented as of this encounter Advance Directives [...] the patient have Health Care Power of Deployment Technician? No Code Status History Code Status Date Activated Date Inactivated Comments Full Code 01/21/2011 12:12 PM 01/22/2011 8:48 PM This order reflects the patients wishes and were consensually agreed upon. Question Answer Comments Discussion of Advance Directives occurred with: Patient Does the patient have a Living Will? No Does the patient have Health Care Power of Deployment Technician? No Care Teams Marketing Development Manager Relationship Specialty Start Date End Date Scott Weldon MD 132 [facility] [place] [address] PCP - General Family Medicine 08/03/18 documented as of this encounter
--- OUTSIDE RECORDS SUMMARY | 2023-08-12 09:21 | External Medical Summary | Summary of Care ---
Author Name Unknown Organization [facility] Address 100 [facility] [place] [address] Phone [phone] Care Team Providers Care Network Systems Administrator Name Role Phone Scott Weldon MD Primary Care Provider + Reason for Visit * Reason Onset Date Comments Medication Management 06/17/2023 Encounter Details Date Type Department Care Team (Late st Contact Info) Description 06/17/2023 Telephone Family Practice [facility] [address] [place] [address] Scott Weldon MD [address] [place] [address] Medication Management Allergies Active Allergy Reactions Criticality Noted Date Comments Naproxen Sodium Bleeding High 11/29/2013 Pollen 12/03/2022 Seasonal Food (See Comments) Anaphylaxis High 04/20/2019 Hot peppers (oils) Kiwi Extract Anaphylaxis High 04/20/2019 documented as of this encounter (statuses as of 06/19/2023) Medications Medication Sig Dispensed Refills Start Date [...] suspected opioid overdose. Seek immediate medical attention. https://www.youPoptipube .com/watch?v=v26cDa [email or web address] 1 Each 3 3 Active [...] hemoglobin A1c goal of less than 8.0% ([facility]),DM type 2, not at goal ([facility]) INJECT UP TO 200 UNITS SUBCUTANEOSULY ONCE [...] as of this encounter (statuses as of 06/19/2023) Active Problems Problem Noted Date Diagnosed Date [...] as of this encounter (statuses as of 06/19/2023) Resolved Problems Problem Noted Date Diagnosed Date [...] Overview: Per Obesity Taxonomy Coronary atherosclerosis of [place] coronary artery 09/15/2008 10/03/2008 Malaise and fatigue [...] as of this encounter (statuses as of 06/19/2023) Immunizations Name Administration Dates Next Due COVID-19 mRNA, LNP-s, No Pre serve, 2-Dose Series ([employer]) 11/08/2020,10/11/2020 HEP A - Hepatitis A (Adult > 18 yrs) 04/11/2011, 09/20/2010 Hepatitis B, 20+ yrs 07/05/2015 Pneumococcal Conjugate Vacci ne, 20-valent (Mcnylpx86) 03/13/2023 Pneumococcal Polysaccharide PPV23 (Pneumovax) 02/19/2018,03/09/2007 Seasonal [...] encounter Miscellaneous Notes * Telephone Encounter - Patrica Shane LPN - 06/17/2023 2:30 PM EST Received Novolin and Ozempic from pt assistance program. Placed in Refrigerator at [facility]. Called pt, aware and will pick today or tomorrow. documented in this encounter Plan of Treatment Upcoming Encounters Date Type Department Care Team (Latest Contact Info) Description 06/22/2023 12:30 PM EST Telemedicine Psychiatry, [facility] [address] [address] Rj Mai MD [address] [facility] [address] 07/02/2023 10:40 AM EST Office Visit Neurology [facility] [place] 200 [facility] [place] [address] Moinca Shrestha MD [address] [place] [address] 07/06/2023 2:30 PM EST Imaging Radiology [facility] [address] [place], [place] [address] 07/29/2023 12:45 PM EST Hospital Encounter ENDO [facility], Endoscopy Room [facility] [address] [place], [place] [address] Aj Pruett, DO [address] [place], [place] [address] 07/29/2023 12:45 PM EST - 07/29/2023 1:15 PM EST Surgery ENDO [facility], Endoscopy Room [facility] [address] [place], [place] [address] Aj Pruett, DO [address] [place] [address] COLONOSCOPY FLEXIBLE PROXIMAL DIAGNOSTIC 08/06/2023 1:00 PM EST Telemedicine Pharmacy, [facility] 132 [place] [address] [facility] [address] [facility] [address] 08/14/2023 11:00 AM EST Pharmacy Pharmacy, [address] [place] [address] [place] [address] 08/19/2023 2:15 PM EDT Office Visit Hematology/Oncolog y [place] [address] [place] [address] Sunil Bourgeois MD [address] [place] [address] Scheduled Procedures Name Priority Associated Diagnoses Date/Ti [...] Additional history exists COVID-19 Vaccine ( - season) 2023 11/08/2020, 10/11/2020 B-12 06/11/2023 [...] this encounter Medical Devices Implanted Type Area Telephone Order Clerk Room Service Device Identifier Shelf Expiration Date Model / Serial / Lot Envelope Tyrx Med Antibacteril - [id number] Implanted:Qty: 1 on 08/22/2022 by Rafia Small MD at OR [facility] N/A: Spine Lumbar [employer] 03/10/2023 [id number] / / [id number] documented as of this encounter Advance Directives [...] the patient have Health Care Power of Wall Man? No Code Status History Code Status Date Activated Date Inactivated Comments Full Code 01/21/2011 12:12 PM 01/22/2011 8:48 PM This order reflects the patients wishes and were consensually agreed upon. Question Answer Comments Discussion of Advance Directives occurred with: Patient Does the patient have a Living Will? No Does the patient have Health Care Power of Wall Man? No Care Teams Network Systems Administrator Relationship Specialty Start Date End Date Scott Weldon MD 132 [facility] [place] [address] PCP - General Family Medicine 08/03/18 documented as of this encounter
--- OUTSIDE RECORDS SUMMARY | 2023-08-12 09:21 | External Medical Summary | Summary of Care ---
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 03/09/2019/07/2019 Malignant neoplasm of liver 02/04/2019 07/10/2020 Obesity, [...] Overview: Per Obesity Taxonomy Coronary atherosclerosis of [place] coronary artery 09/15/2008 10/03/2008 Malaise and fatigue [...] mRNA, LNP-s, No Pre serve, 2-Dose Series ([employer]) 11/08/2020,10/11/2020 HEP A - Hepatitis A (Adult > 18 yrs) 04/11/2011, 09/20/2010 Hepatitis B, 20+ yrs 07/05/2015 Pneumococcal Conjugate Vacci ne, 20-valent (Agfknof87) 03/13/2023 Pneumococcal Polysaccharide PPV23 (Pneumovax) 02/19/2018,03/09/2007 Seasonal [...] Progress Notes * Rj Mai MD - 06/22/2023 1:24 PM EST Patient failed to keep appointment. documented in this encounter Plan of Treatment Upcoming Encounters Date Type Department Care Team (Latest Contact Info) Description 07/02/2023 10:40 AM EST Office Visit Neurology [facility] [address] [place] [address] Monica Shrestha MD [address] [place] [address] 07/06/2023 2:30 PM EST Imaging Radiology [address] 132 [facility] [place] [address] 07/29/2023 12:45 PM EST Hospital Encounter ENDO [facility], Endoscopy Room [facility] 132 [facility] [place] [address] Aj Pruett, DO [address] [place], [place] [address] 07/29/2023 12:45 PM EST - 07/29/2023 1:15 PM EST Surgery ENDO [facility], Endoscopy Room [facility] [address] [place], [place] [address] Aj Pruett, DO [address] [place] [address] COLONOSCOPY FLEXIBLE PROXIMAL DIAGNOSTIC 08/06/2023 1:00 PM EST Telemedicine Pharmacy, [facility] 132 [facility] [place] [address] [facility] [address] [place] [address] 08/14/2023 11:00 AM EST Pharmacy Pharmacy, [address] [address] [place] [address] [place] [address] 08/19/2023 2:15 PM EDT Office [facility] [place] [address] [place] [address] Sunil Bourgeois MD [address] [place], [place] [address] Scheduled Procedures Name Priority Associated Diagnoses Date/Ti [...] this encounter Medical Devices Implanted Type Area Services Manager Device Identifier Shelf Expiration Date Model / Serial / Lot Envelope Tyrx Med Antibacteril - [id number] Implanted:Qty: 1 on 08/22/2022 by Rafia Small MD at OR [facility] N/A: Spine Lumbar [employer] 03/10/2023 [id number] / / [id number] documented as of this encounter Visit Diagnoses Diagnosis No Show for psych appt- Primary Screen for colon cancer Special screening for [...] the patient have Health Care Power of Product Development Consultant? No Code Status History Code Status Date Activated Date Inactivated Comments Full Code 01/21/2011 12:12 PM 01/22/2011 8:48 PM This order reflects the patients wishes and were consensually agreed upon. Question Answer Comments Discussion of Advance Directives occurred with: Patient Does the patient have a Living Will? No Does the patient have Health Care Power of Product Development Consultant? No Care Teams Supervisor Hairspring Fabrication Relationship Specialty Start Date End Date Scott Weldon MD [address] [place] [address] PCP - General Family Medicine 08/03/18 documented as of this encounter
--- OUTSIDE RECORDS SUMMARY | 2023-08-12 09:21 | External Medical Summary | Summary of Care ---
Author Name Unknown Organization [facility] Address 100 [facility] [place] [address] Phone [phone] Care Team Providers Care Plant Security Guard Name Role Phone Scott Weldon MD Primary Care Provider + Reason for Visit * Reason Onset Date Comments Medication Management 06/17/2023 Encounter Details Date Type Department Care Team (Late st Contact Info) Description 06/17/2023 Telephone Family Practice [facility] [address] [place] [address] Scott Weldon MD [address] [place] [address] Medication Management Allergies Active Allergy Reactions Criticality [...] suspected opioid overdose. Seek immediate medical attention. [email or web address]://[email or web address]?v=v26cDa [email or web address] 1 Each 3 3 Active [...] hemoglobin A1c goal of less than 8.0% ([facility]),DM type 2, not at goal ([facility]) INJECT UP TO 200 UNITS [...] Overview: Per Obesity Taxonomy Coronary atherosclerosis of [place] coronary artery 09/15/2008 10/03/2008 Malaise and fatigue [...] yrs 07/05/2015 Pneumococcal Conjugate Vacci ne, 20-valent (Ymnmsnb12) 03/13/2023 Pneumococcal Polysaccharide PPV23 (Pneumovax) 02/19/2018,03/09/2007 Seasonal [...] pt assistance program. Placed in Refrigerator at [facility]. Called pt, aware and will pick today or tomorrow. documented in this encounter Plan of Treatment Upcoming Encounters Date Type Department Care Team (Latest Contact Info) Description 06/22/2023 12:30 PM EST Telemedicine Psychiatry, [facility] [address] [address] Rj Mai MD [address] [facility] [address] 07/02/2023 10:40 AM EST Office Visit Neurology [facility] [place] 200 [place] [address] Monica Shrestha MD [address] [place] [address] 07/06/2023 2:30 PM EST Imaging Radiology [facility] [address] [place], [place] [address] 07/29/2023 12:45 PM EST Hospital Encounter ENDO [facility], Endoscopy Room [facility] [address] [place], [place] [phone] Aj Pruett, DO [address] [place], [place] [address] 07/29/2023 12:45 PM EST - 07/29/2023 1:15 PM EST Surgery ENDO [facility], Endoscopy Room [facility] [address] [place], [place] [phone] Aj Pruett, DO [address] [place] [address] COLONOSCOPY FLEXIBLE PROXIMAL DIAGNOSTIC 08/06/2023 1:00 PM EST Telemedicine Pharmacy, [facility] 132 [place] [address] [facility] [address] [facility] [address] 08/14/2023 11:00 AM EST Pharmacy Pharmacy, [address] [place] [address] [place] [address] 08/19/2023 2:15 PM EDT Office Visit Hematology/Oncolog y [place] [address] [place] [address] Sunil Bourgeois MD [address] [place] [address] Scheduled Procedures Name Priority Associated Diagnoses Date/Ti [...] this encounter Medical Devices Implanted Type Area Dividend Deposit Voucher Clerk Device Identifier Shelf Expiration Date Model / Serial / Lot Envelope Tyrx Med Antibacteril - [id number] Implanted:Qty: 1 on 08/22/2022 by Rafia Small MD at OR [facility] N/A: Spine Lumbar [employer] 03/10/2023 [id number] / / [id number] documented as of this encounter Advance Directives [...] the patient have Health Care Power of Ceramic Painter? No Code Status History Code Status Date Activated Date Inactivated Comments Full Code 01/21/2011 12:12 PM 01/22/2011 8:48 PM This order reflects the patients wishes and were consensually agreed upon. Question Answer Comments Discussion of Advance Directives occurred with: Patient Does the patient have a Living Will? No Does the patient have Health Care Power of Ceramic Painter? No Care Teams Plant Security Guard Relationship Specialty Start Date End Date Scott Weldon MD 132 [facility] [place] [address] PCP - General Family Medicine 08/03/18 documented as of this encounter
--- OUTSIDE RECORDS SUMMARY | 2023-08-12 09:22 | External Medical Summary | Summary of Care ---
Author Name Unknown Organization [facility] Address [address] [facility] [address] Phone [phone] Care Team Providers Care Surveillance Director Name Role Phone Scott Weldon MD Primary Care Provider + Reason for Visit * Reason Comments eRx-Medication Refill Encounter Details Date Type Department Care Team (Late st Contact Info) Description 06/02/2023 Refill Family Practice [facility] [address] [facility] [place] [address] Scott Weldon MD 132 [facility] [place] [address] Bilateral low back pain with sciatica, sciatica laterality unspecified, unspecified chronicity Allergies Active Allergy Reactions Criticality Noted Date Comments Naproxen Sodium Bleeding High 11/29/2013 Pollen 12/03/2022 Seasonal Food (See Comments) Anaphylaxis High 04/20/2019 Hot peppers (oils) Kiwi Extract Anaphylaxis High 04/20/2019 documented as of this encounter (statuses as of 06/05/2023) Medications Medication Sig Dispensed Refills Start Date [...] Unit 3 12/31/19 16 Active Glucose Blood ([employer] CONTOUR NEXT TEST) STRP Use to test [...] Use as directed. 0 07/30/19 18 Active metFORMIN HCl 1000 MG Oral Tablet (Glucophage)Indicat ions:DM type 2, not at goal (HCC) TAKE 1 TABLET BY MOUTH 2 TIMES A DAY WITH MORNING AND EVENING MEALS 180 Tablet 3 07/03/19 23 Active CPAP every night at bedtime. 0 [...] suspected opioid overdose. Seek immediate medical attention. [email or web address]?[email or web address] 1 Each 3 11/28/19 Active Potassium Chloride ER 10 MEQ Oral Tablet Extended ReleaseIndications: HTN, goal below 130/80 TAKE 1 TABLET BY MOUTH TWICE A DAY WITH FOOD 180 Tablet 1 01/16/20 Active hydrOXYzine HCl 25 MG Oral Tablet [...] to 180 days 1 Each 1 04/16/20 Active Losartan Potassium 25 MG Oral Tablet (Cozaar)Indications :HTN, goal below 130/80 TAKE 1 TABLET BY MOUTH EVERYDAY AT BEDTIME 90 Tablet 1 04/17/20 Active Spironolactone 50 MG Oral Tablet (Aldactone)Indicati ons:Liver cirrhosis secondary to nonalcoholic steatohepatitis (MENDEZ) (HCC),Obesity, Class III, BMI 40-49.9 (morbid obesity) (HCC),Type 2 diabetes mellitus with hemoglobin A1c goal of less than 8.0% (HCC),HTN, goal below 130/80,Dyslipidemia , goal LDL below 100,Other ascites,Peripheral edema TAKE 1 TABLET BY MOUTH EVERY DAY IN THE MORNING 90 Tablet 1 04/20/20 Active Furosemide 40 MG Oral Tablet (Lasix)Indications: Other ascites,Cirrhosis of liver with ascites, unspecified hepatic cirrhosis type,Edema, unspecified type TAKE 1 TABLET BY MOUTH EVERY DAY IN THE MORNING 90 Tablet 1 04/17/20 23 Active Ondansetron 8 MG Oral Tablet Disintegrating (Zofran) Place 1 Tablet on tongue every 8 hours as needed for Nausea. dissolve on tongue. 90 Tablet 2 04/18/20 23 Active Baclofen 10 MG Oral Tablet (Lioresal)Indicatio ns:muscle spasms Take 1 Tablet by mouth 3 times a day as needed for Muscle spasms. 90 Tablet 5 05/04/20 23 Active NovoLIN R ReliOn 100 UNIT/ML Injection Solution (insulin REGULAR human)Indications:T ype 2 diabetes mellitus with hemoglobin A1c goal of less than 8.0% ([facility]),DM type 2, not at goal ([facility]) INJECT UP TO 200 UNITS SUBCUTANEOSULY ONCE DAILY VIA PUMP 60 mL 0 05/05/20 Active traZODone HCl 100 MG Oral Tablet (Desyrel) Take 1-2 Tablets by mouth at bedtime. 180 Tablet 1 05/06/20 23 Active Albuterol Sulfate HFA 108 (90 Base) MCG/ACT Inhalation Aerosol Solution INHALE 2 PUFFS BY MOUTH EVERY 6 HOURS NEEDED FOR SHORTNESS OF BREATH 18 g 1 05/30/20 23 Active Pregabalin 100 MG Oral Capsule (Lyrica)Indications :Bilateral low back pain with sciatica, sciatica laterality unspecified, unspecified chronicity TAKE 1 CAPSULE BY MOUTH EVERY DAY IN THE MORNING , AT NOON, AND BEFORE BEDTIME 270 Capsule 1 06/05/20 23 Active Pregabalin 100 MG Oral Capsule (Lyrica)Indications :Bilateral low back pain with sciatica, sciatica laterality unspecified, unspecified chronicity Take 1 Capsule by mouth in the morning and 1 Capsule at noon and 1 Capsule before bedtime. 270 Capsule 3 10/17/19 23 023 Discontinued documented as of this encounter (statuses as of 06/05/2023) Active Problems Problem Noted Date Diagnosed Date [...] as of this encounter (statuses as of 06/05/2023) Resolved Problems Problem Noted Date Diagnosed Date [...] Overview: Per Obesity Taxonomy Coronary atherosclerosis of hughes coronary artery 09/15/2008 10/03/2008 Malaise and fatigue [...] as of this encounter (statuses as of 06/05/2023) Immunizations Name Administration Dates Next Due COVID-19 mRNA, LNP-s, No Pre serve, 2-Dose Series ([employer]) 11/08/2020,10/11/2020 HEP A - Hepatitis A (Adult > 18 yrs) 04/11/2011, 09/20/2010 Hepatitis B, 20+ yrs 07/05/2015 Pneumococcal Conjugate Vacci ne, 20-valent ([id number]) 03/13/2023 Pneumococcal Polysaccharide PPV23 (Pneumovax) 02/19/2018,03/09/2007 Seasonal [...] Telephone Encounter - Kavon Caro MD - 06/05/2023 2:19 PM EST Signed Prescriptions: Disp Refills Pregabalin 100 MG Oral Capsule (Lyrica) 270 Ca*1 Sig: TAKE 1 CAPSULE BY MOUTH EVERY DAY IN THE MORNING , AT NOON, AND BEFORE BEDTIMEAuthorizing Provider: KAVON CARORefused Prescriptions: Disp Refills Buprenorphine 5 MCG/HR Transdermal Patch W*4 Ghmna2Lpo: PLACE 1 PATCH TOPICALLY ON THE SKIN ONCE A WEEK.Refused By: Kori TEIXEIRAon for Refusal: Duplicate Request * Telephone Encounter - Kavon Caro MD - 06/05/2023 2:18 PM EST I have reviewed the patient's controlled substance dispensing history in the Prescription Drug Monitoring Program in compliance with the [facility] regulations before prescribing a controlled substance. * Telephone Encounter - Rosalva Romero [facility] - 06/03/2023 11:05 AM ESTPending Prescriptions: Disp Refills Pregabalin 100 MG Oral Capsule (Lyrica) 270 Ca*1 Sig: TAKE 1 CAPSULE BY MOUTH EVERY DAY IN THE MORNING , AT NOON, AND BEFORE BEDTIME Refused Prescriptions: Disp Refills Buprenorphine 5 MCG/HR Transdermal Patch W*4 Patch0 Sig: PLACE 1 PATCH TOPICALLY ON THE SKIN ONCE A WEEK. Refused By: Lalo ROMERO for Refusal: Duplicate Request * Telephone Encounter - Rosalva Romero [facility] - 06/03/2023 11:05 AM ESTPending Prescriptions: Disp Refills Pregabalin 100 MG Oral Capsule (Lyrica) 270 Ca*1 Sig: TAKE 1 CAPSULE BY MOUTH EVERY DAY IN THE MORNING , AT NOON, AND BEFORE BEDTIME Refused Prescriptions: Disp Refills Buprenorphine 5 MCG/HR Transdermal Patch W*4 Patch0 Sig: PLACE 1 PATCH TOPICALLY ON THE SKIN ONCE A WEEK. Refused By: Lalo ROMERO for Refusal: Duplicate Request * Telephone Encounter - Rosalva Romero RP - 06/03/2023 11:03 AM EST I have reviewed the patients controlled substance dispensing history in the Prescription Drug Monitoring Program in compliance with the [facility] regulations before prescribing a controlled substance. PDMP checked on 06/03/2023. Pending Prescriptions: Disp Refills Pregabalin 100 MG Oral Capsule (Lyrica) [*270 Ca* 1 Sig: TAKE 1 CAPSULE BY MOUTH EVERY DAY IN THE MORNING , AT NOON, AND BEFORE BEDTIME Last Visit: 03/13/2023 (in office), 09/08/2022 (telemedicine) Next Visit: Visit date not found Date medication was last filled: 03/06 Date medication is due for refill: 06/03 Pharmacy: [id number] [address] [facility] Is this request for a controlled substance? Yes and Urine Drug Screen was completed Toxicology results: Results for orders placed [...] Results Review. Please approve if appropriate. Thanks, Rosalva Romero PharmD Clinical Pharmacist [facility] ([facility]) (formerly Telepharmacy) [phone] 06/03/2023 11:03 AM * Telephone Encounter - Zeinab Bautista PHARM Tech - 06/02/2023 12:21 PM EST Pharmacist said lyrica expires every 6 months since its a controlled substance. Did you pend patient's preferred pharmacy and medication before forwarding?yes Pharmacy: [id number] [address] [facility] Pending Prescriptions: Disp Refills Buprenorphine 5 MCG/HR Transdermal Patch *4 Patch0 Sig: PLACE 1 PATCH TOPICALLY ON THE SKIN ONCE A WEEK. Pregabalin 100 MG Oral Capsule (Lyrica) [*270 Ca* Sig: TAKE 1 CAPSULE BY MOUTH EVERY DAY IN THE MORNING , AT NOON, AND BEFORE BEDTIME Last Visit: 03/13/2023 (in office), 09/08/2022 (telemedicine) Next Visit: Visit date not found If no future appointments scheduled, and last appointment is greater than a year ago, please schedule patient for a follow-up appointment Last date the medication was ordered: 05/04/2023,10/16/2022 Is this request for a controlled substance?Yes, What was the last refill date 05/04/2023,10/16/2022 w/ quantity 4,270 and dosage 5mcg,100mg and Urine Drug Screen was completed Urine Drug Screen: Results for orders placed [...] Department Care Team (Latest Contact Info) Description 06/16/2023 3:40 PM EST Office Visit Neurology [facility] [address] [address] Monica Shrestha MD [address] [address] 06/22/2023 12:30 PM EST Telemedicine Psychiatry, [facility] [address] [place] [address] Rj Mai MD [address] [facility] [place] [address] 07/06/2023 2:30 PM EST Imaging Radiology [facility] [address] [place] [address] 07/29/2023 12:45 PM EST Hospital Encounter ENDO [facility], Endoscopy Room [facility] [address] [place] [phone] Aj Prutet, DO [address] [place] [address] 07/29/2023 12:45 PM EST - 07/29/2023 1:15 PM EST Surgery ENDO [facility], Endoscopy Room [facility] [address] [place] [address] Aj Pruett, DO [address] [place] [address] COLONOSCOPY FLEXIBLE PROXIMAL DIAGNOSTIC 08/06/2023 1:00 PM EST [facility]medicine [facility], [facility] [place] [address] [facility] [address] [place] [address] 08/14/2023 11:00 AM EST Pharmacy Pharmacy, [address] [place] [address], [place] [address] 08/19/2023 2:15 PM EDT Office Visit Hematology/Oncolog y [facility] [address] [place] [address] Sunil Bourgeois MD [address] [place], [place] [address] Scheduled Procedures Name Priority Associated Diagnoses Date/Ti [...] 10/03/2021, 11/07/2019, Additional history exists Albumin/Creatinine Ratio 04/06/202404/06/2 023, 03/11/2022, 11/08/2021, Additional history exists Lipid [...] this encounter Medical Devices Implanted Type Area Polish Maker Device Identifier Shelf Expiration Date Model / Serial / Lot Envelope Tyrx Med Antibacteril - [id number] Implanted:Qty: 1 on 08/22/2022 by Rafia Small MD at OR [facility] N/A: Spine Lumbar [employer] 03/10/2023 [id number] / / [id number] documented as of this encounter Visit Diagnoses Diagnosis Bilateral low back pain with sciatica, sciatica laterality unspecified, unspecified chronicity Screen for colon cancer Special screening for [...] the patient have Health Care Power of Compression Molding Machine Tender? No Code Status History Code Status Date Activated Date Inactivated Comments Full Code 01/21/2011 12:12 PM 01/22/2011 8:48 PM This order reflects the patients wishes and were consensually agreed upon. Question Answer Comments Discussion of Advance Directives occurred with: Patient Does the patient have a Living Will? No Does the patient have Health Care Power of Compression Molding Machine Tender? No Care Teams Surveillance Director Relationship Specialty Start Date End Date Scott Weldon MD 132 [facility] [place] [address] PCP - General Family Medicine 08/03/18 documented as of this encounter
--- OUTSIDE RECORDS SUMMARY | 2023-08-12 09:22 | External Medical Summary | Summary of Care ---
Author Name Unknown Organization [facility] Address [address] [facility] [address] Phone [phone] Care Team Providers Care Flotation Tender Name Role Phone Scott Weldon MD Primary Care Provider + Reason for Visit * Reason Onset Date Comments Appointment 06/02/2023 Encounter Details Date Type Department Care Team (Late st Contact Info) Description 06/02/2023 Telephone Radiology [address] [place] [address] Debbi Greene TECH Appointment Allergies Active Allergy Reactions Criticality Noted Date Comments Naproxen Sodium Bleeding High 11/29/2013 Pollen 12/03/2022 Seasonal Food (See Comments) Anaphylaxis High 04/20/2019 Hot peppers (oils) Kiwi Extract Anaphylaxis High 04/20/2019 documented as of this encounter (statuses as of 06/02/2023) Medications Medication Sig Dispensed Refills Start Date [...] Dosing Unit 3 6 Active Glucose Blood ([employer] CONTOUR NEXT TEST) STRP Use to test [...] Each 5 8 Active Insulin Infusion Pump (MINIMM2M Solution 630G INSULIN PUMP) KITIndications:Type 2 diabetes mellitus [...] EVERY DAY 90 Tablet 3 3 Active Pregabalin 100 MG Oral Capsule (Lyrica)Indications: Bilateral low back pain with sciatica, sciatica laterality unspecified, unspecified chronicity Take 1 Capsule by mouth in the morning and 1 Capsule at noon and 1 Capsule before bedtime. 270 Capsule 3 3 Active Escitalopram Oxalate 20 MG Oral Tablet (Lexapro) Take 1 Tablet by mouth in the morning. 90 Tablet 1 3 Active Ozempic (1 MG/DOSE) 4 MG/3ML Subcutaneous Solution Pen-injector (Semaglutide (1 MG/DOSE))Indications :Type 2 diabetes mellitus with hemoglobin A1c goal of less than 8.0% ([facility]) Inject 1 mg under the [...] suspected opioid overdose. Seek immediate medical attention. [email or web address]?v=[email or web address] 1 Each 3 3 Active [...] on tongue. 90 Tablet 2 3 Active Buprenorphine 5 MCG/HR Transdermal Patch Weekly (Butrans) Place 1 Patch topically on the skin once a week. 4 Patch 0 3 Active Baclofen 10 MG Oral Tablet (Lioresal)Indication s:muscle spasms Take 1 Tablet by mouth 3 times a day as needed for Muscle spasms. 90 Tablet 5 3 Active NovoLIN R ReliOn 100 UNIT/ML Injection Solution (insulin REGULAR human)Indications:Ty pe 2 diabetes mellitus with hemoglobin A1c goal of less than 8.0% ([facility]),DM type 2, not at goal ([facility] [...] OF BREATH 18 g 1 3 Active documented as of this encounter (statuses as of 06/02/2023) Active Problems Problem Noted Date Diagnosed Date [...] shot/SI injection consent signed Family friend-Tony. Son Ricky-wedding fall 2017. Also son Hieu. Sim--2019 melanoma. [...] as of this encounter (statuses as of 06/02/2023) Resolved Problems Problem Noted Date Diagnosed Date [...] Overview: Per Obesity Taxonomy Coronary atherosclerosis of augustine coronary artery 09/15/2008 10/03/2008 Malaise and fatigue 09/15/2008 08/20/19 Dyslipidemia, goal to be determined 09/15/2008 02/25/2010 [...] as of this encounter (statuses as of 06/02/2023) Immunizations Name Administration Dates Next Due COVID-19 mRNA, LNP-s, No Pre serve, 2-Dose Series (Pfizer) 11/08/2020,10/11/2020 HEP A - Hepatitis A (Adult > 18 yrs) 04/11/2011, 09/20/2010 Hepatitis B, 20+ yrs 07/05/2015 Pneumococcal Conjugate Vacci ne, 20-valent ([id number]) 03/13/2023 Pneumococcal Polysaccharide PPV23 (Pneumovax) 02/19/2018,03/09/2007 Seasonal [...] encounter Miscellaneous Notes * Telephone Encounter - Debbi Greene TECH - 06/02/2023 2:48 PM EST Name: Carmen Tyson Do you have any of the following: Pacemaker, stents, heart valves, aneurysm clips? Yes-stimulator Have you ever worked with metal or have you ever gotten metal in your eyes? No Have you had a colonoscopy in the last 30 days? No On dialysis? No Do you have any dermals or body piercing's? No or ? Do you wear an insulin pump or diabetic monitor? Insulin pump and diabetic monitor. No new tattoos GERARD Moran documented in this encounter Plan of Treatment Upcoming Encounters Date Type Department Care Team (Latest Contact Info) Description 06/04/2023 11:00 AM EST Imaging Radiology [address] 132 [facility] [place] [address] 06/16/2023 3:40 PM EST Office Visit Neurology [facility] [address] [place] [address] Monica Shrestha MD [address] [place] [address] 06/22/2023 12:30 PM EST Telemedicine Psychiatry, [facility] [address] [place] [address] Rj Mai MD [address] [place] [address] 07/29/2023 12:45 PM EST Hospital Encounter ENDO [facility], Endoscopy Room [facility] [address] [place] [phone] Aj Pruett, DO [address] [place] [address] 07/29/2023 12:45 PM EST - 07/29/2023 1:15 PM EST Surgery ENDO [facility], Endoscopy Room [facility] [address] [place] [address] Aj Pruett, DO [address] [place] [address] COLONOSCOPY FLEXIBLE PROXIMAL DIAGNOSTIC 08/06/2023 1:00 PM EST [facility] [address] [facility] [place] [address] [facility] [address] [place] [address] 08/14/2023 11:00 AM EST Pharmacy Pharmacy, [address] [place] [address] [place] [address] 08/19/2023 2:15 PM EDT Office Visit Hematology/Oncolog y [employer] [address] [place] [address] Sunil Bourgeois MD 200 [place] [address] Scheduled Procedures Name Priority Associated Diagnoses Date/Ti [...] this encounter Medical Devices Implanted Type Area Carbon Blocks Press Operator Device Identifier Shelf Expiration Date Model / Serial / Lot Envelope Tyrx Med Antibacteril - [id number] Implanted:Qty: 1 on 08/22/2022 by Rafia Small MD at OR [facility] N/A: Spine Lumbar [employer] 03/10/2023 [id number] / / [id number] documented as of this encounter Advance Directives [...] the patient have Health Care Power of Casting Technician? No Code Status History Code Status Date Activated Date Inactivated Comments Full Code 01/21/2011 12:12 PM 01/22/2011 8:48 PM This order reflects the patients wishes and were consensually agreed upon. Question Answer Comments Discussion of Advance Directives occurred with: Patient Does the patient have a Living Will? No Does the patient have Health Care Power of Casting Technician? No Care Teams Flotation Tender Relationship Specialty Start Date End Date Scott Weldon MD [address] [place] [address] PCP - General Family Medicine 08/03/18 documented as of this encounter
--- OUTSIDE RECORDS SUMMARY | 2023-08-12 09:22 | External Medical Summary | Summary of Care ---
Author Name Unknown Organization [facility] Address [address] [facility] [place] [address] Phone [phone] Care Team Providers Care Embedded Hardware Engineer Name Role Phone Scott Montoya MD Primary Care Provider + Reason for Visit * Reason Onset Date Comments Medication Refill 05/29/2023 Encounter Details Date Type Department Care Team (Late st Contact Info) Description 05/29/2023 Refill Family Practice [facility] [address] [place] [address] Scott Montoya MD [address] [place] [address] Allergies Active Allergy Reactions Criticality Noted Date [...] hemoglobin A1c goal of less than 8.0% ([facility]) Inject 1 mg under the skin once [...] suspected opioid overdose. Seek immediate medical attention. [email or web address]://www.[email or web address]/watch?v=v26c Rnv1BxZ 1 Each 3 3 Active Potassium Chloride [...] a week. 4 Patch 0 3 Active Buprenorphine 5 MCG/HR Transdermal Patch Weekly (Butrans) Place 1 Patch topically on the skin once a week. 4 Patch 0 3 05/29/20 23 Discontinu ed(Refill) documented as of this encounter [...] Overview: Per Obesity Taxonomy Coronary atherosclerosis of jackson coronary artery 09/15/2008 10/03/2008 Malaise and fatigue [...] mRNA, LNP-s, No Pre serve, 2-Dose Series (wireWAX) 11/08/2020,10/11/2020 HEP A - Hepatitis A (Adult > 18 yrs) 04/11/2011, 09/20/2010 Hepatitis B, 20+ yrs 07/05/2015 Pneumococcal Conjugate Vacci ne, 20-valent ([id number]) 03/13/2023 Pneumococcal Polysaccharide PPV23 (Pneumovax) 02/19/2018,03/09/2007 Seasonal [...] Telephone Encounter - Scott Montoya MD - 06/02/2023 10:01 PM EST Signed Prescriptions: Disp Refills Buprenorphine 5 MCG/HR Transdermal Patch W*4 Patch0 Sig: Place 1 Patch topically on the skin once a week. Authorizing Provider: SCOTT MONTOYA * Telephone Encounter - Ariana Quesada [facility] - 05/30/2023 5:43 PM EST Pending Prescriptions: Disp Refills Buprenorphine 5 MCG/HR Transdermal Patch W*4 Patch0 Sig: Place 1 Patch topically on the skin once a week. * Telephone Encounter - Ariana Quesada [facility] - 05/30/2023 5:42 PM EST I have reviewed the patients controlled substance dispensing history in the Prescription Drug Monitoring Program in compliance with the [facility] regulations before prescribing a controlled substance. PDMP checked on 05/30/2023. Pending Prescriptions: Disp Refills Buprenorphine 5 MCG/HR Transdermal Patch *4 Patch0 Sig: Place 1 Patch topically on the skin once a week. Last Visit: 03/13/2023 (in office), 09/08/2022 (telemedicine) Next Visit: Visit date not found Date medication was last filled: 05/05/23 Date medication is due for refill: 05/31/23 Pharmacy: [id number] [address] [place] [address] Is this request for a controlled substance? [...] in Results Review. Please approve if appropriate. Ariana Walters [facility] Clinical Pharmacist Centralized Clinical Pharmacy Services (CCPS) (Formerly Telepharmacy) [phone] documented in this encounter Plan of Treatment Upcoming Encounters Date Type Department Care Team (Latest Contact Info) Description 06/04/2023 11:00 AM EST Imaging Radiology [address] [place] [address] 06/16/2023 3:40 PM EST Office Visit Neurology [facility] [address] [facility] [place] [address] Monica hSrestha MD [address] [facility] [place] [address] 06/22/2023 12:30 PM EST Telemedicine Psychiatry, [facility] [address] [facility] [place] [address] Rj Mai MD [address] [place] [address] 07/29/2023 12:45 PM EST Hospital Encounter ENDO [facility], Endoscopy Room [facility] [address] [place] [phone] Aj Pruett, DO [address] [place] [address] 07/29/2023 12:45 PM EST - 07/29/2023 1:15 PM EST Surgery ENDO [facility], Endoscopy Room [facility] [address] [place] [phone] Aj Pruett, DO [address] [place] [address] COLONOSCOPY FLEXIBLE PROXIMAL DIAGNOSTIC 08/06/2023 1:00 PM EST Telemedicine Pharmacy, [facility] 132 [facility], [place] [address] [facility] [address] [facility], [place] [address] 08/14/2023 11:00 AM EST Pharmacy Pharmacy, [place] [address] [address] [facility], [place] [address] [facility] [address] [place] [address] 08/19/2023 2:15 PM EDT Office Visit Hematology/Oncolog y [facility] [address] [place] [address] Sunil Bourgeois MD [address] [place] [address] Scheduled Procedures Name Priority Associated Diagnoses Date/Ti [...] Additional history exists Lipid Panel 03/11/2027 03/11/2022, 0711/2019, 08/18/2018, Additional history exists DTaP,Tdap,and Td Vaccines [...] this encounter Medical Devices Implanted Type Area Improvement Director Device Identifier Shelf Expiration Date Model / Serial / Lot Envelope Tyrx Med Antibacteril - [id number] Implanted:Qty: 1 on 08/22/2022 by Rafia Small MD at OR [facility] N/A: Spine Lumbar [id number] 03/10/2023 [id number] / / [id number] documented as of this encounter Advance Directives [...] the patient have Health Care Power of Ship Unloader? No Code Status History Code Status Date Activated Date Inactivated Comments Full Code 01/21/2011 12:12 PM 01/22/2011 8:48 PM This order reflects the patients wishes and were consensually agreed upon. Question Answer Comments Discussion of Advance Directives occurred with: Patient Does the patient have a Living Will? No Does the patient have Health Care Power of Ship Unloader? No Care Teams Embedded Hardware Engineer Relationship Specialty Start Date End Date Scott Montoya MD [address] [place] [address] PCP - General Family Medicine 08/03/18 documented as of this encounter
--- OUTSIDE RECORDS SUMMARY | 2023-08-12 09:23 | External Medical Summary | Summary of Care ---
Author Name Unknown Organization [facility] Address [address] [facility] [address] Phone [phone] Care Team Providers Care Biomass Facilitator Name Role Phone Scott Weldon MD Primary Care Provider + Encounter Details Date Type Department Care Team (Late st Contact Info) Description 05/12/2023 Telephone Family Practice [facility] [address] [place] [address] Scott Weldon MD 132 [facility] [place] [address] Allergies Active Allergy Reactions Criticality Noted Date Comments Naproxen Sodium Bleeding High 11/29/2013 Pollen 12/03/2022 Seasonal Food (See Comments) Anaphylaxis High 04/20/2019 Hot peppers (oils) Kiwi Extract Anaphylaxis High 04/20/2019 documented as of this encounter (statuses as of 05/12/2023) Medications Medication Sig Dispensed Refills Start Date [...] suspected opioid overdose. Seek immediate medical attention. https://[email or web address] .com/watch?v=v26cDa [email or web address] 1 Each 3 3 Active [...] A DAY 180 Tablet 3 3 Active Albuterol Sulfate HFA 108 (90 Base) MCG/ACT Inhalation Aerosol Solution INHALE 2 PUFFS BY MOUTH EVERY 6 HOURS NEEDED FOR SHORTNESS OF BREATH 18 g 1 3 Active Loratadine 10 MG Oral Tablet [...] at bedtime. 180 Tablet 1 3 Active documented as of this encounter (statuses as of 05/12/2023) Active Problems Problem Noted Date Diagnosed Date [...] gastric polyp. Biopsied. - Normal examined duodenum. 6/20 mild anemia, iron WNL. ?heme 07/2019 1y trigger shot/SI injection consent signed Family friend-Tony. Son Ricky-fall. Also son Hieu. Sim--2019 melanoma. . 12/24 EGD mild gastritis, krihsna 1y 08/23 EGD--food in stomach. Krishna 1y. [...] as of this encounter (statuses as of 05/12/2023) Resolved Problems Problem Noted Date Diagnosed Date [...] Overview: Per Obesity Taxonomy Coronary atherosclerosis of picayune coronary artery 09/15/2008 10/03/2008 Malaise and fatigue [...] as of this encounter (statuses as of 05/12/2023) Immunizations Name Administration Dates Next Due COVID-19 mRNA, LNP-s, No Pre serve, 2-Dose Series (SoLatina) 11/08/2020,10/11/2020 HEP A - Hepatitis A (Adult > 18 yrs) 04/11/2011, 09/20/2010 Hepatitis B, 20+ yrs 07/05/2015 Pneumococcal Conjugate Vacci ne, 20-valent ([id number]) 03/13/2023 Pneumococcal Polysaccharide PPV23 (Pneumovax) 02/19/2018,03/09/2007 SEASONAL INFLUENZA, PF, 6 M & Above, IM , (FLULAVAL or FLUZONE) 03/13/2023,03/01/2021,02/28/2020,03/09,02/19/2018,03/02/2017 Seasonal Influenza, Quadriva lent, No Preserve, [...] encounter Miscellaneous Notes * Telephone Encounter - Venecia Chou LPN - 05/12/2023 3:52 PM EST Pts sim 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 documented in this encounter Plan of Treatment Upcoming Encounters Date Type Department Care Team (Latest Contact Info) Description 05/19/2023 3:40 PM EST Office Visit Neurology [facility] [address] [address] Monica Shrestha MD [address] [place] [address] 05/22/2023 11:30 AM EST Office Visit [facility] [place] [address] [facility] [address] [place], [facility] [address] [facility] [address] 06/04/2023 11:00 AM EST Imaging Radiology [facility] [facility] [address] [place] [address] 06/22/2023 12:30 PM EST Telemedicine Psychiatry, [facility] [address] [place] [address] Rj Mai MD [address] [place] [address] 07/29/2023 12:45 PM EST Hospital Encounter ENDO [facility], Endoscopy Room [facility] [address] [place] [phone] Aj Pruett, DO [address] [place] [address] 07/29/2023 12:45 PM EST - 07/29/2023 1:15 PM EST Surgery ENDO [facility], Endoscopy Room [facility] [address] [place] [phone] Aj Pruett, DO [address] [place] [address] COLONOSCOPY FLEXIBLE PROXIMAL DIAGNOSTIC 08/06/2023 1:00 PM EST Telemedicine Pharmacy, [facility] 132 [facility] [place] [address] [facility] [address] [place] [address] 08/19/2023 2:15 PM EDT Office Visit Hematology/Oncolog y [facility] [address] [place] [address] Sunil Bourgeois MD [address] [place] [address] Scheduled Procedures Name Priority Associated Diagnoses Date/Ti [...] this encounter Medical Devices Implanted Type Area Security Delivery Specialist Device Identifier Shelf Expiration Date Model / Serial / Lot Envelope Tyrx Med Antibacteril - [id number] Implanted:Qty: 1 on 08/22/2022 by Rafia Small MD at OR [facility] N/A: Spine Lumbar [employer] 03/10/2023 [id number] / / [id number] documented as of this encounter Advance Directives [...] the patient have Health Care Power of Welder Gun? No Code Status History Code Status Date Activated Date Inactivated Comments Full Code 01/21/2011 12:12 PM 01/22/2011 8:48 PM This order reflects the patients wishes and were consensually agreed upon. Question Answer Comments Discussion of Advance Directives occurred with: Patient Does the patient have a Living Will? No Does the patient have Health Care Power of Welder Gun? No Care Teams Biomass Facilitator Relationship Specialty Start Date End Date Scott Weldon MD [address] [facility] [place] [address] PCP - General Family Medicine 08/03/18 documented as of this encounter
--- OUTSIDE RECORDS SUMMARY | 2023-08-12 09:23 | External Medical Summary | Summary of Care ---
Author Name Unknown Organization [facility] Address [address] [place] [address] Phone [phone] Care Team Providers Care Ship Scraper Name Role Phone Scott Weldon MD Primary Care Provider + Reason for Visit * Reason Comments Dosage Adjustment In Person (Anticoag Cl inic) Diabetes Management Encounter Details Date Type Department Care Team (Late st Contact Info) Description 05/22/2023 11:30 AM EST Office Visit Pharmacy, [place] [address] [place] [address] [facility] [address] [place] [address] Type 2 diabetes mellitus with hemoglobin A1c goal of less than 8.0% ([facility])* Allergies Active Allergy Reactions Criticality Noted Date Comments Naproxen Sodium Bleeding High 11/29/2013 Pollen 12/03/2022 Seasonal Food (See Comments) Anaphylaxis High 04/20/2019 Hot peppers (oils) Kiwi Extract Anaphylaxis High 04/20/2019 documented as of this encounter (statuses as of 05/22/2023) Medications Medication Sig Dispensed Refills Start Date End Date Status ONETOUCH ULTRASOFT LANCETS MISCIndications:DM type 2, not at goal ([facility]) check FS 6 times daily [...] Dosing Unit 3 6 Active Glucose Blood (goBalto CONTOUR NEXT TEST) STRP Use to test [...] hemoglobin A1c goal of less than 8.0% ([facility]) Inject 1 mg under the [...] suspected opioid overdose. Seek immediate medical attention. [email or web address]://[email or web address]/watch?v=v26cDa [email or web address] 1 Each 3 3 Active [...] as of this encounter (statuses as of 05/22/2023) Active Problems Problem Noted Date Diagnosed Date [...] as of this encounter (statuses as of 05/22/2023) Resolved Problems Problem Noted Date Diagnosed Date [...] Overview: Per Obesity Taxonomy Coronary atherosclerosis of [place] coronary artery 09/15/2008 10/03/2008 Malaise and fatigue [...] as of this encounter (statuses as of 05/22/2023) Immunizations Name Administration Dates Next Due COVID-19 mRNA, LNP-s, No Pre serve, 2-Dose Series (Pfizer) 11/08/2020,10/11/2020 HEP A - Hepatitis A (Adult > 18 yrs) 04/11/2011, 09/20/2010 Hepatitis B, 20+ yrs 07/05/2015 Pneumococcal Conjugate Vacci ne, 20-valent ([id number]) 03/13/2023 Pneumococcal Polysaccharide PPV23 (Pneumovax) 02/19/2018,03/09/2007 Seasonal [...] as of this encounter Progress Notes * Clark Baltazar, [facility] - 05/22/2023 11:33 AM EST Images from the original note were not included. Medication Therapy [facility] - Diabetes Management Progress Note Carmen Tyson, identified by name and date of , is a 52 year old female being seen for diabetes management/education. Patient presents for return diabetic visit. DIABETES: Current diabetic medications: Metformin 1000mg twice a day INC Ozempic 2 mg once weekly eGFR 65 mL/min 12/03/22 Medtronic GucashG - [place] ([id number]) Infusion Set: Quick Set Insulin: Novolin R Basal Rate (both segments decreased) 12a-8a 3.8 u/hr 8a-12a 6.00 u/hr Bolus: hardly using (was 15 units for breakfast and lunch/ 22 units for supper- 10 units for chocolate milk snack before bed) Carb ratio 1:3 Bolus wizard: hardly using ISF: 1:10 (weakened) Blood Glucose Goals: 100-140 Active Insulin Time: 3 hours Medication Injection Site: Abdomen Lifestyle: Diet: unchanged Glucose Review/SMBG: Readings obtained from patient device Hypoglycemia: Does your blood sugar go below 70 mg/dL? No Hyperglycemia symptoms present: none Recent Labs Units 02/18/23 1326 06/11/22 0948 05/03/22 1235 HEMOGLOBIN A1C - [facility] % 5.7* 8.6* 9.6* Recent Labs Units 12/03/22 1543 06/11/22 0948 03/11/22 1329 ESTIMATED GLOMERULAR FILTRATION RATE - [facility] mL/min 65 60 78 CREATININE - [facility] mg/dL 1.1* 1.1* 0.9 HYPERTENSION: Patient on ACEi/ARB: yes BP Readings from Last 3 Encounters: 03/13/23 124/72 02/18/23 124/77 12/03/22 116/76 Blood pressure at goal: yes HYPERLIPIDEMIA: Patient is taking moderate or high intensity statin: N/A HEALTH MAINTENANCE REVIEW: Health Maintenance Due Topic Date Due Cervical Cancer Screening 04/12/2018 Mammogram 05/07/2019 COLONOSCOPY-EVERY 5 YRS AGES 18-100 06/27/2020 Diabetic Eye Exam 01/16/2023 COVID-19 Vaccine ( - 2022- season) 2023 Zoster Vaccines (2 of 2) 06/14/2023 ASSESSMENT & PLAN: ICD-10-CM 1. Type 2 diabetes mellitus with hemoglobin A1c goal of less than 8.0% ([facility]) E11.9 Considerations: - activity limited by chronic low back pain - obtaining ozempic and novolin R via PAP --> reapplied 03/27/23 - pt agreeable to jardiance in future BG Readings - Blood sugars controlled. BG averaging 148, A1c 5.7% at last check, Patient not havinglow BG readings now since the decrease of her basal rates. Medications - Reviewed current regimen, patient is adherent to regimen. No changes at this time. Diet, Exercise, Lifestyle - No significant lifestyle changes since last visit. Patient is agreeable to SMBG 4 time(s) daily. Patient aware to contact clinic if any hypoglycemia before next visit. MEDICATION CHANGES: no change Diabetic Medications: Metformin 1000mg twice a day Ozempic 2 mg once weekly eGFR 65 mL/min 12/03/22 Medtronic 630G - Minimed ([id number]) Infusion Set: Quick Set Insulin: Novolin R Basal Rate (both segments decreased) 12a-8a 3.8 u/hr 8a-12a 6.00 u/hr Bolus: hardly using (was 15 units for breakfast and lunch/ 22 units for supper- 10 units for chocolate milk snack before bed) Carb ratio 1:3 Bolus wizard: hardly using ISF: 1:10 (weakened) Blood Glucose Goals: 100-140 Active Insulin Time: 3 hours HEALTH MAINTENANCE INTERVENTIONS: Labs: Ordered & Scheduled: HgA1c and BMP/CMP Immunizations: Up to Date Foot Exam: Up to Date Eye Exam: Up to Date Annual Wellness Visit: N/A FOLLOW UP: Return to clinic in 12 weeks 08/14/2023 Clark Baltazar [facility] Clinical Pharmacist - News Production Supervisor Medication Therapy Management Clinic 05/22/2023, 11:33 AM documented in this encounter Plan of Treatment Upcoming Encounters Date Type Department Care Team (Latest Contact Info) Description 06/04/2023 11:00 AM EST Imaging Radiology [address] [facility] [place] [address] 06/16/2023 3:40 PM EST Office Visit [facility] [address] [facility] [place] [address] Monica Shrestha MD [address] [facility] [place] [address] 06/22/2023 12:30 PM EST Telemedicine Psychiatry, [facility] [address] [facility] [place] [address] Rj Mai MD [address] [facility] [address] 07/29/2023 12:45 PM EST Hospital Encounter ENDO [facility], Endoscopy Room [facility] [address] [place] [phone] Aj Pruett DO [address] [place] [address] 07/29/2023 12:45 PM EST - 07/29/2023 1:15 PM EST Surgery ENDO [facility], Endoscopy Room [facility] [address] [place] [phone] Aj Pruett DO [address] [place] [address] COLONOSCOPY FLEXIBLE PROXIMAL DIAGNOSTIC 08/06/2023 1:00 PM EST Telemedicine Pharmacy, [facility] 132 [facility] [place] [address] [facility] [place] [address] 08/14/2023 11:00 AM EST Pharmacy Pharmacy, [address] [address] [place] [address] [address] [facility] [place] [address] 08/19/2023 2:15 PM EDT Office Visit Hematology/Oncolog y [facility] [address] [facility] [place] [address] Sunil Bourgeois MD [address] [facility] [place] [address] Scheduled Orders Name Type Priority Associated Diagnoses Orde r Schedule HEMOGLOBIN A1C Lab Routine Type 2 diabetes mellitus with hemoglobin A1c goal of less than 8.0% (HCC) Expected: 05/22/2023 (Approximate), Expires: 05/22/2024 BASIC METABOLIC PANEL Lab Routine Type 2 diabetes mellitus with hemoglobin A1c goal of less than 8.0% (HCC) Expected: 05/22/2023 (Approximate), Expires: 05/22/2024 Scheduled Procedures Name Priority Associated Diagnoses Date/Ti [...] this encounter Medical Devices Implanted Type Area Swatch Maker Device Identifier Shelf Expiration Date Model / Serial / Lot Envelope Tyrx Med Antibacteril - [id number] Implanted:Qty: 1 on 08/22/2022 by Rafia Small MD at OR [facility] N/A: Spine Lumbar [employer] 03/10/2023 [id number] / / [id number] documented as of this encounter Visit Diagnoses Diagnosis Type 2 diabetes mellitus with hemoglobin A1c goal of less than 8.0% (HCC)- Primary Screen for colon cancer Special screening [...] the patient have Health Care Power of Child Care Education Coordinator? No Code Status History Code Status Date Activated Date Inactivated Comments Full Code 01/21/2011 12:12 PM 01/22/2011 8:48 PM This order reflects the patients wishes and were consensually agreed upon. Question Answer Comments Discussion of Advance Directives occurred with: Patient Does the patient have a Living Will? No Does the patient have Health Care Power of Child Care Education Coordinator? No Care Teams Ship Scraper Relationship Specialty Start Date End Date Scott Weldon MD 132 [facility] [place] [address] PCP - General Family Medicine 08/03/18 documented as of this encounter
--- OUTSIDE RECORDS SUMMARY | 2023-08-12 09:23 | External Medical Summary | Summary of Care ---
Author Name Unknown Organization [facility] Address [address] [facility] [address] Phone [phone] Care Team Providers Care Gis Software Engineer Name Role Phone Scott Montoya MD Primary Care Provider + Reason for Visit * Reason Comments eRx-Medication Refill Encounter Details Date Type Department Care Team (Late st Contact Info) Description 05/30/2023 Refill Family Practice [facility] [place] [address] Scott Montoya MD 132 [facility] [place] [address] Allergies Active Allergy Reactions Criticality Noted Date Comments Naproxen Sodium Bleeding High 11/29/2013 Pollen 12/03/2022 Seasonal Food (See Comments) Anaphylaxis High 04/20/2019 Hot peppers (oils) Kiwi Extract Anaphylaxis High 04/20/2019 documented as of this encounter (statuses as of 05/30/2023) Medications Medication Sig Dispensed Refills Start Date [...] Unit 3 12/31/19 16 Active Glucose Blood (SYLVIA CONTOUR [...] DAY 90 Tablet 3 10/06/19 23 Active Pregabalin 100 MG Oral Capsule (Lyrica)Indications :Bilateral low back pain with sciatica, sciatica laterality unspecified, unspecified chronicity Take 1 Capsule by mouth in the morning and 1 Capsule at noon and 1 Capsule before bedtime. 270 Capsule 3 10/17/19 23 Active Escitalopram Oxalate 20 MG Oral Tablet (Lexapro) Take 1 Tablet by mouth in the morning. 90 Tablet 1 11/05/19 23 Active Ozempic (1 MG/DOSE) 4 MG/3ML Subcutaneous Solution Pen-injector (Semaglutide (1 MG/DOSE))Indication s:Type 2 diabetes mellitus with hemoglobin A1c goal of less than 8.0% ([facility]) Inject 1 mg under the skin [...] suspected opioid overdose. Seek immediate medical attention. https://www.Endologix.com/watch?v=v26c [email or web address] 1 Each 3 11/28/19 23 Active Potassium Chloride ER 10 MEQ Oral Tablet Extended ReleaseIndications: HTN, goal below 130/80 TAKE 1 TABLET BY MOUTH TWICE A DAY WITH FOOD 180 Tablet 1 01/16/20 23 Active hydrOXYzine HCl 25 MG Oral [...] needed for Dizziness. 30 Tablet 1 04/15/20 Active Zoster Vac Recomb Adjuvanted 50 MCG/0.5ML [...] IN THE MORNING 90 Tablet 1 04/17/20 Active Ondansetron 8 MG Oral Tablet Disintegrating (Zofran) Place 1 Tablet on tongue every 8 hours as needed for Nausea. dissolve on tongue. 90 Tablet 2 04/18/20 Active Buprenorphine 5 MCG/HR Transdermal Patch Weekly (Butrans) Place 1 Patch topically on the skin once a week. 4 Patch 0 05/04/20 Active Baclofen 10 MG Oral Tablet (Lioresal)Indicatio ns:muscle spasms Take 1 Tablet by mouth 3 times a day as needed for Muscle spasms. 90 Tablet 5 05/04/20 Active NovoLIN R ReliOn 100 UNIT/ML Injection Solution (insulin REGULAR human)Indications:T ype 2 diabetes mellitus with hemoglobin A1c goal of less than 8.0% ([facility]),DM type 2, not at goal ([facility]) INJECT UP TO 200 UNITS SUBCUTANEOSULY ONCE DAILY VIA PUMP 60 mL 0 05/05/20 Active traZODone HCl 100 MG Oral Tablet (Desyrel) Take 1-2 Tablets by mouth at bedtime. 180 Tablet 1 05/06/20 Active Albuterol Sulfate HFA 108 (90 Base) MCG/ACT Inhalation Aerosol Solution INHALE 2 PUFFS BY MOUTH EVERY 6 HOURS NEEDED FOR SHORTNESS OF BREATH 18 g 1 05/30/20 Active Albuterol Sulfate HFA 108 (90 Base) MCG/ACT Inhalation Aerosol Solution INHALE 2 PUFFS BY MOUTH EVERY 6 HOURS NEEDED FOR SHORTNESS OF BREATH 18 g 1 04/09/20 23 023 Discontinued documented as of this encounter (statuses as of 05/30/2023) Active Problems Problem Noted Date Diagnosed Date [...] as of this encounter (statuses as of 05/30/2023) Resolved Problems Problem Noted Date Diagnosed Date [...] Overview: Per Obesity Taxonomy Coronary atherosclerosis of [place] coronary artery 09/15/2008 10/03/2008 Malaise and fatigue [...] as of this encounter (statuses as of 05/30/2023) Immunizations Name Administration Dates Next Due COVID-19 mRNA, LNP-s, No Pre serve, 2-Dose Series ([employer] 11/08/2020,10/11/2020 HEP A - Hepatitis A (Adult > 18 yrs) 04/11/2011, 09/20/2010 Hepatitis B, 20+ yrs 07/05/2015 Pneumococcal Conjugate Vacci ne, 20-valent ([id number]) 03/13/2023 Pneumococcal Polysaccharide PPV23 (Pneumovax) 02/19/2018,03/09/2007 Seasonal [...] encounter Miscellaneous Notes * Telephone Encounter - Savanah Winkler RPh - 05/30/2023 10:51 AM ESTSigned Prescriptions: Disp Refills Albuterol Sulfate HFA 108 (90 Base) MCG/AC*18 g 1 Sig: INHALE 2 PUFFS BY MOUTH EVERY 6 HOURS NEEDED FOR SHORTNESS OF BREATHAuthorizing Provider: SCOTT MONTOYA User: SAVANAH WINKLER documented in this encounter Plan of Treatment Upcoming Encounters Date Type Department Care Team (Latest Contact Info) Description 06/04/2023 11:00 AM EST Imaging Radiology [address] [place] [address] 06/16/2023 3:40 PM EST Office Visit Neurology [facility] [address] [place] [address] Monica Shrestha MD [address] [place] [address] 06/22/2023 12:30 PM EST Telemedicine Psychiatry, [facility] [address] [place] [address] Rj Mai MD [address] [place] [address] 07/29/2023 12:45 PM EST Hospital Encounter ENDO [facility], Endoscopy Room [facility] [address] [place] [phone] Aj Pruett, DO [address] [place], [place] [address] 07/29/2023 12:45 PM EST - 07/29/2023 1:15 PM EST Surgery ENDO [facility], Endoscopy Room [facility] [address] [place] [phone] Aj Pruett, DO [address] [place], [place] [address] COLONOSCOPY FLEXIBLE PROXIMAL DIAGNOSTIC 08/06/2023 1:00 PM EST Telemedicine Pharmacy, [facility] [address] [place] [address] [facility] [address] [place] [address] 08/14/2023 11:00 AM EST Pharmacy Pharmacy, [place] [address] [place] [facility] [place] [address] [place] [address] [place] [facility] [place] [address] 08/19/2023 2:15 PM EDT Office Visit Hematology/Oncolog y [facility]oney [facility]endez [place] [facility] [place] [address] Sunil Bourgeois MD [address] [place] [address] Scheduled Procedures Name Priority Associated Diagnoses Date/Ti [...] this encounter Medical Devices Implanted Type Area Technical Project Coordinator Device Identifier Shelf Expiration Date Model / Serial / Lot Envelope Tyrx Med Antibacteril - [id number] Implanted:Qty: 1 on 08/22/2022 by Rafia Small MD at OR [facility] N/A: Spine Lumbar [employer] 03/10/2023 [id number] / / [id number] documented as of this encounter Advance Directives [...] the patient have Health Care Power of Belting And Webbing Inspector? No Code Status History Code Status Date Activated Date Inactivated Comments Full Code 01/21/2011 12:12 PM 01/22/2011 8:48 PM This order reflects the patients wishes and were consensually agreed upon. Question Answer Comments Discussion of Advance Directives occurred with: Patient Does the patient have a Living Will? No Does the patient have Health Care Power of Belting And Webbing Inspector? No Care Teams Gis Software Engineer Relationship Specialty Start Date End Date Scott Montoya MD [address] [place] [address] PCP - General Family Medicine 08/03/18 documented as of this encounter
--- OUTSIDE RECORDS SUMMARY | 2023-08-12 09:23 | External Medical Summary | Summary of Care ---
Author Name Unknown Organization [facility] Address 100 [facility] [place] [address] Phone [phone] Care Team Providers Care Correctional Counselor Name Role Phone Scott Weldon MD Primary Care Provider + Reason for Visit * Reason Comments Dosage Adjustment In Person (Anticoag Cl inic) Pain Encounter Details Date Type Department Care Team (Late st Contact Info) Description 05/07/2023 1:00 PM [facility] Telemedicine Pharmacy, [facility] 132 [facility] [place] [address] [facility] 132 [facility] [place] [address] Chronic pain syndrome* Allergies Active Allergy Reactions Criticality Noted Date Comments Naproxen Sodium Bleeding High 11/29/2013 Pollen 12/03/2022 Seasonal Food (See Comments) Anaphylaxis High 04/20/2019 Hot peppers (oils) Kiwi Extract Anaphylaxis High 04/20/2019 documented as of this encounter (statuses as of 05/07/2023) Medications Medication Sig Dispensed Refills Start Date [...] A1c goal of less than 8.0% ([facility]) Inject 1 mg under the [...] suspected opioid overdose. Seek immediate medical attention. https://www.youTRData .com/watch?v=v26cDa o4AcI 1 Each 3 3 Active [...] as of this encounter (statuses as of 05/07/2023) Active Problems Problem Noted Date Diagnosed Date [...] as of this encounter (statuses as of 05/07/2023) Resolved Problems Problem Noted Date Diagnosed Date [...] Overview: Per Obesity Taxonomy Coronary atherosclerosis of [place] coronary artery 09/15/2008 10/03/2008 Malaise and fatigue [...] as of this encounter (statuses as of 05/07/2023) Immunizations Name Administration Dates Next Due COVID-19 mRNA, LNP-s, No Pre serve, 2-Dose Series ([employer]) 11/08/2020,10/11/2020 HEP A - Hepatitis A (Adult > 18 yrs) 04/11/2011, 09/20/2010 Hepatitis B, 20+ yrs 07/05/2015 Pneumococcal Conjugate Vacci ne, 20-valent ([id number]) 03/13/2023 Pneumococcal Polysaccharide PPV23 (Pneumovax) 02/19/2018,03/09/2007 SEASONAL [...] this encounter Progress Notes * Radha Mckeon, [facility] - 05/07/2023 12:56 PM EST Images from the original note were not included. After connecting to the patient via telephone, the patient was identified by name and date of . Patient was then informed that this was a telephone call only visit. The patient agreed to participate. Visit Disposition: Routine follow-up Total call duration was 12 minutes. Medication Therapy Disease Management Clinic - Chronic Pain Management Progress Note 05/07/2023 Carmen Tyson, identified by name and date of , is a 52 year old female being seen for chronic pain management/education. Patient presents to pain MTM clinic for return visit. Referring Physician: Dr. Weldon Medication Agreement: on file Patient's Pharmacy: [facility] Jayesh CHIEF COMPLAINT: RUQ Pain and back pain (radiating from shoulder blade down) Interval History: Patient notes she is decorating Notes she is trying to be more active Notes SCS is continuing to help Notes does still have pain but much less intense than previous Some days are worse than other Pain described as: aching and dull, radiating, [...] risk) Daily MME: ~ 30 PDMP Reviewed (05/07/23): Urine Toxicology Screen: 03/11/22-appropriate Pill Count: N/a Functional Goal: QOL Current Pain Level (05/07/23): stable Pain Level (02/12/23): [...] worse Pain Level (05/30/20):stable Pain Level (02/29/20): 7-01/15 = stable Pain Level (01/18/20): Worse due [...] trazodone, escitalopram, hydroxyzine Creatinine Clearance: Serum creatinine: 1.1 mg/dL (H) 12/03/22 1543 Estimated creatinine clearance: 75.1 mL/min (A) Creatinine Results: Recent Labs Units 12/03/22 1543 06/11/22 0948 03/11/22 1329 CREATININE - [facility] mg/dL 1.1* 1.1* 0.9 Hepatic Function (ALT): Recent Labs Units 12/03/22 [...] Medication Optimization. Current concerns: continued chronic pain but better controlled Adherence: Reviewed current regimen, patient is adherent to regimen. 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 PLAN: Continue current medications Medication changes: no change Pain Medications: Baclofen 10 mg BID prn- notes she is unsure if it helps Lyrica 100 mg TID Butrans 5 mcg/hr every week *lunesta, trazodone, escitalopram, hydroxyzine Patient verbalized understanding of the plan. Contact clinic with any issues. FOLLOW UP: Return to clinic in 12 weeks Visit date not found Radha Mckeon [facility] Clinical Pharmacist - Hospitality Director Medication Therapy Management Clinic 05/07/2023, 12:56 PM documented in this encounter Plan of Treatment Upcoming Encounters Date Type Department Care Team (Latest Contact Info) Description 05/19/2023 3:40 PM EST Office Visit Neurology [facility] [address] [place] [address] Monica Shrestha MD [address] [place] [address] 05/22/2023 11:30 AM EST Office Visit Pharmacy, [address] [address] [facility] [address] [place] [address] 06/04/2023 11:00 AM EST Imaging Radiology [facility] [place] [address] [facility] [place] [address] 06/22/2023 12:30 PM EST Telemedicine Psychiatry, [facility] [address] [place] [address] Rj Mai MD [address] [facility] [place] [address] 07/29/2023 12:45 PM EST Hospital Encounter ENDO [facility], Endoscopy Room [facility] [address] [place], [place] [phone] Aj Pruett, DO [address] [place] [address] 07/29/2023 12:45 PM EST - 07/29/2023 1:15 PM EST Surgery ENDO [facility], Endoscopy Room [facility] [address] [place] [address] Aj Pruett, DO [address] [place] [address] COLONOSCOPY FLEXIBLE PROXIMAL DIAGNOSTIC 08/06/2023 1:00 PM EST Telemedicine Pharmacy, [facility] [address] [place] [address] [facility] [address] [place] [address] 08/19/2023 2:15 PM EDT Office Visit Hematology/Oncolog y [facility] [place] [address] [place] [address] Sunil Bourgeois MD [address] [place] [address] Scheduled Procedures Name Priority Associated Diagnoses Date/Ti [...] 02/12/2016, Additional history exists COVID-19 Vaccine (3 season) 2023 11/08/2020, 10/11/2020 B-12 06/11/2023 06/11/2022, [...] this encounter Medical Devices Implanted Type Area Shearing Machine Operator Device Identifier Shelf Expiration Date Model / Serial / Lot Envelope Tyrx Med Antibacteril - [id number] Implanted:Qty: 1 on 08/22/2022 by Rafia Small MD at OR [facility] N/A: Spine Lumbar [employer] 03/10/2023 [id number] / / [id number] documented as of this encounter Visit Diagnoses Diagnosis Chronic pain syndrome- Primary Screen for colon cancer Special screening [...] the patient have Health Care Power of Traffic Control Specialist? No Code Status History Code Status Date Activated Date Inactivated Comments Full Code 01/21/2011 12:12 PM 01/22/2011 8:48 PM This order reflects the patients wishes and were consensually agreed upon. Question Answer Comments Discussion of Advance Directives occurred with: Patient Does the patient have a Living Will? No Does the patient have Health Care Power of Traffic Control Specialist? No Care Teams Correctional Counselor Relationship Specialty Start Date End Date Scott Weldon MD [address] [place] [address] PCP - General Family Medicine 08/03/18 documented as of this encounter
--- OUTSIDE RECORDS SUMMARY | 2023-08-12 09:24 | External Medical Summary | Summary of Care ---
Author Name Unknown Organization [facility] Address [address] [place] [address] Phone [phone] Care Team Providers Care Newscast Producer Name Role Phone Scott Weldon MD Primary Care Provider + Reason for Visit * Reason Onset Date Comments Medication Refill 05/06/2023 Encounter Details Date Type Department Care Team (Late st Contact Info) Description 05/06/2023 Refill Psychiatry, [address] [address] Kandace Avina MD [address] [place] [address] Allergies Active Allergy Reactions Criticality Noted Date Comments Naproxen Sodium Bleeding High 11/29/2013 Pollen 12/03/2022 Seasonal Food (See Comments) Anaphylaxis High 04/20/2019 Hot peppers (oils) Kiwi Extract Anaphylaxis High 04/20/2019 documented as of this encounter (statuses as of 05/06/2023) Medications Medication Sig Dispensed Refills Start Date [...] A1c goal of less than 8.0% ([facility]) Inject 1 mg under the skin once [...] suspected opioid overdose. Seek immediate medical attention. https://www.JAZD Markets.com/watch?v=v26c Jjp9UzU 1 Each 3 3 Active Potassium Chloride [...] A1c goal of less than 8.0% ([facility]),HTN, goal below 130/80,Dyslipidemia , goal LDL below [...] A1c goal of less than 8.0% ([facility]),DM type 2, not at goal ([facility]) INJECT UP TO 200 UNITS SUBCUTANEOSULY ONCE DAILY VIA PUMP 60 mL 0 3 Active traZODone HCl 100 MG Oral Tablet (Desyrel) Take 1-2 Tablets by mouth at bedtime. 180 Tablet 1 3 Active traZODone HCl 100 MG Oral Tablet (Desyrel) Take 1-2 Tablets by mouth at bedtime. 180 Tablet 0 3 05/06/20 23 Discontinu ed(Refill) documented as of this encounter (statuses as of 05/06/2023) Active Problems Problem Noted Date Diagnosed Date [...] as of this encounter (statuses as of 05/06/2023) Resolved Problems Problem Noted Date Diagnosed Date [...] Overview: Per Obesity Taxonomy Coronary atherosclerosis of [place] coronary artery 09/15/2008 10/03/2008 Malaise and fatigue [...] as of this encounter (statuses as of 05/06/2023) Immunizations Name Administration Dates Next Due COVID-19 mRNA, LNP-s, No Pre serve, 2-Dose Series ([employer]) 11/08/2020,10/11/2020 HEP A - Hepatitis A (Adult > 18 yrs) 04/11/2011, 09/20/2010 Hepatitis B, 20+ yrs 07/05/2015 Pneumococcal Conjugate Vacci ne, 20-valent ([id number]) 03/13/2023 Pneumococcal Polysaccharide PPV23 (Pneumovax) 02/19/2018,03/09/2007 SEASONAL [...] encounter Miscellaneous Notes * Telephone Encounter - Kandace Avina MD - 05/06/2023 1:01 PM EST Signed Prescriptions: Disp Refills traZODone HCl 100 MG Oral Tablet (Desyrel) 180 Ta*1 Sig: Take 1-2 Tablets by mouth at bedtime. Authorizing Provider: KANDACE AVINA * Telephone Encounter - Prisca Orona OSA - 05/06/2023 12:33 PM EST Pharmacy requesting refill on Trazodone 100mg. Medication was last filled on 01/15/23 with 0 refills. Patient last seen on 02/02/23 with return appointment scheduled for 06/22/23. Patient had 0 cancelled appointments and 1 NO SHOW appointments. documented in this encounter Plan of Treatment Upcoming Encounters Date Type Department Care Team (Latest Contact Info) Description 05/07/2023 1:00 PM EST [address] [place] [address] 05/07/2023 1:30 PM EST [address]med[address]acy, [address] [place] [address] 05/19/2023 3:40 PM EST Office Visit Neurology [facility] [address] [place] [address] Monica Shrestha MD [address] [place] [address] 05/22/2023 11:30 AM EST Office Visit Pharmacy, [address] [place] [address] [address] 06/04/2023 11:00 AM EST Imaging Radiology [facility] [address]st [address] [address] 06/22/2023 12:30 PM EST Telemedicine Psychiatry, [facility] [address] [facility] [place], [place] [address] Kandace Avina MD [address] [facility], [place] [address] 07/29/2023 12:45 PM EST Hospital Encounter ENDO [facility], Endoscopy Room [facility] [address] [place] [address] Aj Pruett, DO [address] [place], [place] [address] 07/29/2023 12:45 PM EST - 07/29/2023 1:15 PM EST Surgery ENDO [facility], Endoscopy Room [facility] [address] [place], [place] [phone] Aj Pruett, DO [address] [place], [place] [address] COLONOSCOPY FLEXIBLE PROXIMAL DIAGNOSTIC 08/19/2023 2:15 PM EDT Office Visit Hematology/Oncolog y Roney Melendez [place] [address] [facility] [place], [place] [address] Sunil oBurgeois MD [address] [facility] [place], [place] [address] Scheduled Procedures Name Priority Associated Diagnoses Date/Ti [...] this encounter Medical Devices Implanted Type Area Sales And Service Officer Device Identifier Shelf Expiration Date Model / Serial / Lot Envelope Tyrx Med Antibacteril - [id number] Implanted:Qty: 1 on 08/22/2022 by Rafia Small MD at OR [facility] N/A: Spine Lumbar [employer] 03/10/2023 [id number] / / [id number] documented as of this encounter Advance Directives [...] the patient have Health Care Power of Family Dinner Service Specialist? No Code Status History Code Status Date Activated Date Inactivated Comments Full Code 01/21/2011 12:12 PM 01/22/2011 8:48 PM This order reflects the patients wishes and were consensually agreed upon. Question Answer Comments Discussion of Advance Directives occurred with: Patient Does the patient have a Living Will? No Does the patient have Health Care Power of Family Dinner Service Specialist? No Care Teams Newscast Producer Relationship Specialty Start Date End Date Scott Weldon MD [address] [place] [address] PCP - General Family Medicine 08/03/18 documented as of this encounter
--- OUTSIDE RECORDS SUMMARY | 2023-08-12 09:24 | External Medical Summary | Summary of Care ---
Author Name Unknown Organization [facility] Address [address] [facility] [place] [address] Phone [phone] Care Team Providers Care Rocket Motor Tester Name Role Phone Scott Weldon MD Primary Care Provider + Reason for Visit * Reason Onset Date Comments Medication Management 05/06/2023 Encounter Details Date Type Department Care Team (Late st Contact Info) Description 05/06/2023 Telephone Family Practice [facility] [address] [place] [address] Scott Weldon MD [address] [place] [address] Medication Management Allergies Active Allergy Reactions Criticality [...] hemoglobin A1c goal of less than 8.0% ([facility]) Inject 1 mg under the skin [...] suspected opioid overdose. Seek immediate medical attention. https://www.youRundown [email or web address]/watch?v=v26cDa [email or web address] 1 Each 3 3 Active [...] Overview: Per Obesity Taxonomy Coronary atherosclerosis of sokaogon coronary artery 09/15/2008 10/03/2008 Malaise and fatigue [...] mRNA, LNP-s, No Pre serve, 2-Dose Series (Dermal Life) 11/08/2020,10/11/2020 HEP A - Hepatitis A (Adult > 18 yrs) 04/11/2011, 09/20/2010 Hepatitis B, 20+ yrs 07/05/2015 Pneumococcal Conjugate Vacci ne, 20-valent ([id number]) 03/13/2023 Pneumococcal Polysaccharide PPV23 (Pneumovax) 02/19/2018,03/09/2007 SEASONAL [...] encounter Miscellaneous Notes * Telephone Encounter - Danielle Anderson RPh - 05/06/2023 1:42 PM EST [facility] has sent faxes twice now to [email or web address] for the 2023 enrollment year for patient to receive ozempic 2 mg + her insulin from [facility]. There have been backlogs due to national shortages. Patient has been made aware of this (see TE from 04/20/23) and patient has been instructed that if she would like a timeline of when ozempic 2 mg will be coming, she may call the castings drafter. Will need to use ozempic 1 mg if that is what the castings drafter sent. Thanks! Danielle Anderson, PharmD, BCACP Clinical Pharmacist Medication Therapy Disease Management 05/06/2023, 1:44 PM * Telephone Encounter - Mila Sin LPN - 05/06/2023 1:32 PM EST Received pt assistance Ozempic. Called pt to notify who states MT was to increase dose to 2mg. Please advise on this Pt assistance Sanjayic 1mg in med room refrigerator documented in this encounter Plan of Treatment Upcoming Encounters Date Type Department Care Team (Latest Contact Info) Description 05/07/2023 1:00 PM EST Telemedicine Pharmacy, [facility] 132 [facility] [place] [address] [place] [address] 05/07/2023 1:30 PM EST Telemedicine Pharmacy, [address] [place] [address] [place] [address] 05/19/2023 3:40 PM EST Office Visit [facility]rology [facility] 200 [facility] [place] [address] Monica Shrestha MD 200 [facility] [place] [address] 05/22/2023 11:30 AM EST Office Visit Pharmacy, [address] [address] [address] [address] [place] [address] 06/04/2023 11:00 AM EST Imaging Radiology [facility] 1st [facility] 132 [facility] [address] 06/22/2023 12:30 PM EST Telemedicine Psychiatry, [facility] 200 [facility] [place] [address] Rj Mai MD [address] [place] [facility] [place] [address] 07/29/2023 12:45 PM EST Hospital Encounter ENDO [facility], Endoscopy Room [facility] [address] [place], [place] [phone] Aj Pruett, DO [address] [place] [address] 07/29/2023 12:45 PM EST - 07/29/2023 1:15 PM EST Surgery ENDO [facility], Endoscopy Room [facility] [address] [place] [phone] Aj Pruett, DO [address] [place] [address] COLONOSCOPY FLEXIBLE PROXIMAL DIAGNOSTIC 08/19/2023 2:15 PM EDT Office Visit Hematology/Oncolog y R[facility]endez [place] [address] [place] [address] Sunil Bourgeois MD [address] [place] [address] Scheduled Procedures Name Priority Associated Diagnoses Date/Ti [...] this encounter Medical Devices Implanted Type Area Port Crane Operator Device Identifier Shelf Expiration Date Model / Serial / Lot Envelope Tyrx Med Antibacteril - [id number] Implanted:Qty: 1 on 08/22/2022 by Rafia Small MD at OR [facility] N/A: Spine Lumbar [employer] 03/10/2023 [id number] / / [id number] documented as of this encounter Visit Diagnoses Diagnosis Type 2 diabetes mellitus with hemoglobin A1c goal of less than 8.0% ([facility])- Primary Screen for colon cancer Special screening [...] the patient have Health Care Power of Composition Molder? No Code Status History Code Status Date Activated Date Inactivated Comments Full Code 01/21/2011 12:12 PM 01/22/2011 8:48 PM This order reflects the patients wishes and were consensually agreed upon. Question Answer Comments Discussion of Advance Directives occurred with: Patient Does the patient have a Living Will? No Does the patient have Health Care Power of Composition Molder? No Care Teams Rocket Motor Tester Relationship Specialty Start Date End Date Scott Weldon MD [address] [place] [address] PCP - General Family Medicine 08/03/18 documented as of this encounter
--- OUTSIDE RECORDS SUMMARY | 2023-08-12 09:24 | External Medical Summary | Summary of Care ---
Author Name Unknown Organization [facility] Address [address] [place] [address] Phone [phone] Care Team Providers Care Vocational Aide Name Role Phone Scott Montoya MD Primary Care Provider + Reason for Visit * Reason Comments eRx-Medication Refill Encounter Details Date Type Department Care Team (Late st Contact Info) Description 05/05/2023 Refill Pharmacy, [address] [address] Scott Montoya MD 132 [place] [address] Type 2 diabetes mellitus with hemoglobin A1c goal of less than 8.0% ([facility]); DM type 2, not at goal ([facility]) Allergies Active Allergy Reactions Criticality Noted Date Comments Naproxen Sodium Bleeding High 11/29/2013 Pollen 12/03/2022 Seasonal Food (See Comments) Anaphylaxis High 04/20/2019 Hot peppers (oils) Kiwi Extract Anaphylaxis High 04/20/2019 documented as of this encounter (statuses as of 05/05/2023) Medications Medication Sig Dispensed Refills Start Date [...] Unit 3 12/31/19 16 Active Glucose Blood ([employer] CONTOUR NEXT TEST) STRP Use to [...] suspected opioid overdose. Seek immediate medical attention. [email or web address]://[email or web address].[email or web address]/watch?v=v26c [email or web address] 1 Each 3 11/28/19 23 Active Potassium Chloride ER 10 MEQ Oral Tablet Extended ReleaseIndications: HTN, goal below 130/80 TAKE 1 TABLET BY MOUTH TWICE A DAY WITH FOOD 180 Tablet 1 01/16/20 23 Active traZODone HCl 100 MG Oral Tablet (Desyrel) Take 1-2 Tablets by mouth at bedtime. 180 Tablet 0 01/16/20 23 Active hydrOXYzine HCl 25 MG [...] DAY 180 Tablet 3 04/09/20 23 Active Albuterol Sulfate HFA 108 (90 Base) MCG/ACT Inhalation Aerosol Solution INHALE 2 PUFFS BY MOUTH EVERY 6 HOURS NEEDED FOR SHORTNESS OF BREATH 18 g 1 04/09/20 23 Active Loratadine 10 MG Oral [...] tongue. 90 Tablet 2 04/18/20 23 Active Buprenorphine 5 MCG/HR Transdermal Patch Weekly (Butrans) Place 1 Patch topically on the skin once a week. 4 Patch 0 05/04/20 23 Active Baclofen 10 MG Oral Tablet [...] PUMP 60 mL 0 05/05/20 23 Active NovoLIN R ReliOn 100 UNIT/ML Injection Solution (insulin REGULAR human)Indications:T ype 2 diabetes mellitus with hemoglobin A1c goal of less than 8.0% (HCC),DM type 2, not at goal (HCC) INJECT UP TO 275 UNITS SUBCUTANEOUSLY ONCE DAILY, VIA PUMP 90 mL 3 09/20/19 23 023 Discontinued documented as of this encounter (statuses as of 05/05/2023) Active Problems Problem Noted Date Diagnosed Date [...] as of this encounter (statuses as of 05/05/2023) Resolved Problems Problem Noted Date Diagnosed Date [...] Overview: Per Obesity Taxonomy Coronary atherosclerosis of [place] coronary artery 09/15/2008 10/03/2008 Malaise and [...] as of this encounter (statuses as of 05/05/2023) Immunizations Name Administration Dates Next Due COVID-19 mRNA, LNP-s, No Pre serve, 2-Dose Series (Lecturio) 11/08/2020,10/11/2020 HEP A - Hepatitis A (Adult > 18 yrs) 04/11/2011, 09/20/2010 Hepatitis B, 20+ yrs 07/05/2015 Pneumococcal Conjugate Vacci ne, 20-valent ([id number]) 03/13/2023 Pneumococcal Polysaccharide PPV23 (Pneumovax) 02/19/2018,03/09/2007 SEASONAL [...] encounter Miscellaneous Notes * Telephone Encounter - Marcia Anderson [facility] - 05/05/2023 11:45 AM EST Signed Prescriptions: Disp Refills NovoLIN R ReliOn 100 UNIT/ML Injection Clare*60 mL 0 Sig: INJECT UP TO 200 UNITS SUBCUTANEOSULY ONCE DAILY VIA PUMPAuthorizing Provider: SCOTT MONTOYA User: MARCIA ANDERSON documented in this encounter Plan of Treatment Upcoming Encounters Date Type Department Care Team (Latest Contact Info) Description 05/07/2023 1:00 PM EST Telemedicine Pharmacy, [facility] 132 [place] [address] [address] 05/07/2023 1:30 PM EST Telemedicine Pharmacy, [address] [place] [address] [address] 05/19/2023 3:40 PM EST Office Visit [facility]rology [facility] 200 [facility] [place] [address] Monica Shrestha MD 200 [facility] [place] [address] 05/22/2023 11:30 AM EST Office Visit Pharmacy, [address] [address] 06/04/2023 11:00 AM EST Imaging Radiology [facility] 1st [facility] 132 [place] [address] 06/22/2023 12:30 PM EST Telemedicine Psychiatry, [facility] 200 [facility] [place] [address] Rj Mai MD [address] [place] [address] 07/29/2023 12:45 PM EST Hospital Encounter ENDO [facility], Endoscopy Room [facility] [address] [place], [place] [phone] Aj Pruett, DO [address] [place] [address] 07/29/2023 12:45 PM EST - 07/29/2023 1:15 PM EST Surgery ENDO [facility], Endoscopy Room [facility] [address] [place] [address] Aj Pruett, DO [address] [place] [address] COLONOSCOPY FLEXIBLE PROXIMAL DIAGNOSTIC 08/19/2023 2:15 PM EDT Office Visit Hematology/Oncolog y [facility] [address] [place] [address] Sunil Bourgeois MD [address] [place] [address] Scheduled Procedures Name Priority Associated Diagnoses Date/Ti [...] this encounter Medical Devices Implanted Type Area Wood Casket Assembler Device Identifier Shelf Expiration Date Model / Serial / Lot Envelope Tyrx Med Antibacteril - [id number] Implanted:Qty: 1 on 08/22/2022 by Rafia Small MD at OR [facility] N/A: Spine Lumbar [employer] 03/10/2023 [id number] / / [id number] documented as of this encounter Visit Diagnoses [...] the patient have Health Care Power of Yeast Cake Cutter? No Code Status History Code Status Date Activated Date Inactivated Comments Full Code 01/21/2011 12:12 PM 01/22/2011 8:48 PM This order reflects the patients wishes and were consensually agreed upon. Question Answer Comments Discussion of Advance Directives occurred with: Patient Does the patient have a Living Will? No Does the patient have Health Care Power of Yeast Cake Cutter? No Care Teams Vocational Aide Relationship Specialty Start Date End Date Scott Montoya MD 132 [facility] [place] [address] PCP - General Family Medicine 08/03/18 documented as of this encounter
--- OUTSIDE RECORDS SUMMARY | 2023-08-12 09:24 | External Medical Summary | Summary of Care ---
Author Name Unknown Organization [facility] Address [address] [place] [address] Phone [phone] Care Team Providers Care Loan Service Officer Name Role Phone Scott Weldon MD Primary Care Provider + Reason for Visit * Reason Onset Date Comments Patient Assistance Program 05/05/2023 Encounter Details Date Type Department Care Team (Late st Contact Info) Description 05/05/2023 Telephone Pharmacy, [address] [address] Danielle Anderson, [facility] 200 [place] [address] Patient Assistance Program Allergies Active Allergy Reactions Criticality Noted Date [...] Unit 3 12/31/19 16 Active Glucose Blood ([employer] CONTOUR NEXT TEST) STRP Use to test [...] suspected opioid overdose. Seek immediate medical attention. [email or web address]://[email or web address]/watch?v=[email or web address] 1 Each 3 11/28/19 23 Active Potassium [...] MORNING FOR ALLERGIES. 90 Tablet 1 04/13/20 Active Metoclopramide HCl 5 MG Oral Tablet (Reglan) Take 1 Tablet by mouth in the morning and 1 Tablet at noon and 1 Tablet in the evening. Take before meals. If needed for nausea. 30 Tablet 0 04/15/20 Active Meclizine HCl 25 MG Oral Tablet [...] Overview: Per Obesity Taxonomy Coronary atherosclerosis of kaibab coronary artery 09/15/2008 10/03/2008 Malaise and fatigue [...] mRNA, LNP-s, No Pre serve, 2-Dose Series (Studio Whale) 11/08/2020,10/11/2020 HEP A - Hepatitis A (Adult > 18 yrs) 04/11/2011, 09/20/2010 Hepatitis B, 20+ yrs 07/05/2015 Pneumococcal Conjugate Vacci ne, 20-valent ([id number]) 03/13/2023 Pneumococcal Polysaccharide PPV23 (Pneumovax) 02/19/2018,03/09/2007 SEASONAL [...] encounter Miscellaneous Notes * Telephone Encounter - Vera Hart [facility] - 05/05/2023 11:57 AM EST Faxed. 05/05/2023 * Telephone Encounter - Danielle Anderson RPh - 05/05/2023 11:41 AM EST Received refill request for patient's novolin. [facility] thought that patient was getting this from PAP. Called NovoNordisk and automated system indicates that form was not received for 2023. Routing to motel front desk clerk to refax to metal bench patternmaker. Danielle Anderson PharmD, BCACP Clinical Pharmacist Medication Therapy Disease Management 05/05/2023, 11:42 AM documented in this encounter Plan of Treatment Upcoming Encounters Date Type Department Care Team (Latest Contact Info) Description 05/07/2023 1:00 PM EST Telemedicine Pharmacy, [facility] 132 [facility] [place] [address] [facility] [address] 05/07/2023 1:30 PM EST Telemedicine Pharmacy, [facility] 132 [facility] [place] [address] [facility] 132 [facility] [place] [address] 05/19/2023 3:40 PM EST Office Visit Neurology [facility] [address] [place] [address] Monica Shrestha MD 200 [facility] [place] [address] 05/22/2023 11:30 AM EST Office Visit Pharmacy, [address] [address] 06/04/2023 11:00 AM EST [facility] 132 [facility] [place] [address] 06/22/2023 12:30 PM EST Telemedicine Psychiatry, [facility] [address] [place] [address] Rj Mai MD [address] [facility] [address] 07/29/2023 12:45 PM EST Hospital Encounter ENDO [facility], Endoscopy Room [facility] [address] [place] [phone] Aj Pruett DO [address] [place] [address] 07/29/2023 12:45 PM EST - 07/29/2023 1:15 PM EST Surgery ENDO [facility], Endoscopy Room [facility] [address] [place] [phone] Aj Pruett, [address] [place] [address] COLONOSCOPY FLEXIBLE PROXIMAL DIAGNOSTIC 08/19/2023 2:15 PM EDT Office Visit Hematology/Oncolog y [facility] [place] [address] [place] [address] Sunil Bourgeois MD [address] [place] [address] Scheduled Procedures Name Priority Associated Diagnoses Date/Ti [...] 05/03/2022, Additional history exists GFR 12/04/2023 12/03/2022, 0109/2022, 03/11/2022, Additional history exists Depression Screening 03/13/2024 [...] this encounter Medical Devices Implanted Type Area Chief Scientist Device Identifier Shelf Expiration Date Model / Serial / Lot Envelope Tyrx Med Antibacteril - [id number] Implanted:Qty: 1 on 08/22/2022 by Rafia Small MD at OR [facility] N/A: Spine Lumbar [employer] 03/10/2023 [id number] / / [id number] documented as of this encounter Visit Diagnoses Diagnosis Type 2 diabetes mellitus with hemoglobin A1c goal of less than 8.0% (HCC)- Primary Screen for colon cancer Special screening for malignant neoplasms, colon documented in this encounter Advance Directives Latest Code Status on File Code Status Date Activated Date Inactivated Comments Full Code 04/20/2019 11:06 AM 04/21/2019 6:32 PM T his order reflects the patients wishes and were consensually agreed upon. Question Answer Comments Discussion of Advance Directives occurred with: Patient Does the patient have a Living Will? No Does the patient have Health Care Power of Plastics Nurse? No Code Status History Code Status Date Activated Date Inactivated Comments Full Code 01/21/2011 12:12 PM 01/22/2011 8:48 PM This order reflects the patients wishes and were consensually agreed upon. Question Answer Comments Discussion of Advance Directives occurred with: Patient Does the patient have a Living Will? No Does the patient have Health Care Power of Plastics Nurse? No Care Teams Loan Service Officer Relationship Specialty Start Date End Date Scott Weldon MD [address] [place] [address] PCP - General Family Medicine 08/03/18 documented as of this encounter
--- OUTSIDE RECORDS SUMMARY | 2023-08-12 09:24 | External Medical Summary | Summary of Care ---
Author Name Unknown Organization [facility] Address [address] [place] [address] Phone [phone] Care Team Providers Care Cooperative Education Director Name Role Phone Scott Weldon MD Primary Care Provider + Reason for Visit * Reason Onset Date Comments Patient Assistance Program 05/05/2023 Encounter Details Date Type Department Care Team (Late st Contact Info) Description 05/05/2023 Telephone Pharmacy, [address] [address] Danielle Anderson, [facility] 200 [place] [address] Patient Assistance Program Allergies Active Allergy Reactions [...] Unit 3 12/31/19 16 Active Glucose Blood ([employer] CONTOUR NEXT TEST) STRP Use to test [...] suspected opioid overdose. Seek immediate medical attention. [email or web address]://[email or web address] [email or web address]/watch?v=v26c Civ7OkK 1 Each 3 11/28/19 23 Active Potassium [...] Overview: Per Obesity Taxonomy Coronary atherosclerosis of [place] coronary artery 09/15/2008 10/03/2008 Malaise and fatigue [...] mRNA, LNP-s, No Pre serve, 2-Dose Series (TriplePulse) 11/08/2020,10/11/2020 HEP A - Hepatitis A (Adult > 18 yrs) 04/11/2011, 09/20/2010 Hepatitis B, 20+ yrs 07/05/2015 Pneumococcal Conjugate Vacci ne, 20-valent ([id number]) 03/13/2023 Pneumococcal Polysaccharide PPV23 (Pneumovax) 02/19/2018,03/09/2007 SEASONAL [...] EST Received refill request for patient's novolin. [facility] thought that patient was getting this from [facility]AP. Called NovoNordisk and automated system indicates that form was not received for 2023. Routing to front office coordinator to refax to animal keeper. Danielle Anderson, PharmD, BCACP Clinical Pharmacist Medication Therapy Disease Management 05/05/2023, 11:42 AM documented in this encounter Plan of Treatment Upcoming Encounters Date Type Department Care Team (Latest Contact Info) Description 05/07/2023 1:00 PM EST Telemedicine Pharmacy, [address] [place] [address] [facility] [place] [address] 05/07/2023 1:30 PM EST Telemedicine Pharmacy, [facility] 132 [facility] [place], [place] [address] [facility] [place] [address] 05/19/2023 3:40 PM EST Office Visit Neurology [facility] [address] [place] [address] Monica Shrestha MD [address] [place] [address] 05/22/2023 11:30 AM EST Office Visit Pharmacy, [address] [place] [address] [address] [address] [place] [address] 06/04/2023 11:00 AM EST Imaging Radiology [facility] 1st [facility] 132 [facility] [place] [address] 06/22/2023 12:30 PM EST Telemedicine Psychiatry, [facility] 200 [facility] [place] [address] Rj Mai MD [address] [place] [address] 07/29/2023 12:45 PM EST Hospital Encounter ENDO [facility], [facility] [place] [phone] Aj Pruett DO [address] [place] [address] 07/29/2023 12:45 PM EST - 07/29/2023 1:15 PM EST Surgery ENDO [facility], Endoscopy Room [facility] [address] [place] [phone] Aj Pruett, DO [address] [place] [address] COLONOSCOPY FLEXIBLE PROXIMAL DIAGNOSTIC 08/19/2023 2:15 PM EDT Office Visit Hematology/Oncolog y [facility] [place] [place] 200 [facility] [place] [address] Sunil Bourgeois MD [address] [place] [address] Scheduled Procedures Name Priority Associated Diagnoses Date/Ti [...] this encounter Medical Devices Implanted Type Area Animal Doctor Device Identifier Shelf Expiration Date Model / Serial / Lot Envelope Tyrx Med Antibacteril - [id number] Implanted:Qty: 1 on 08/22/2022 by Rafia Small MD at OR [facility] N/A: Spine Lumbar [employer] 03/10/2023 [id number] / / [id number] documented as of this encounter Visit Diagnoses [...] the patient have Health Care Power of Crushing Foreman? No Code Status History Code Status Date Activated Date Inactivated Comments Full Code 01/21/2011 12:12 PM 01/22/2011 8:48 PM This order reflects the patients wishes and were consensually agreed upon. Question Answer Comments Discussion of Advance Directives occurred with: Patient Does the patient have a Living Will? No Does the patient have Health Care Power of Crushing Foreman? No Care Teams Cooperative Education Director Relationship Specialty Start Date End Date Scott Weldon MD 132 [place] [address] PCP - General Family Medicine 08/03/18 documented as of this encounter
--- OUTSIDE RECORDS SUMMARY | 2023-08-12 09:24 | External Medical Summary | Summary of Care ---
Author Name Unknown Organization [facility] Address [address] [place] [address] Phone [phone] Care Team Providers Care Overhead Line Worker Name Role Phone Scott Weldon MD Primary Care Provider + Reason for Visit * Reason Onset Date Comments Patient Assistance Program 05/05/2023 Encounter Details Date Type Department Care Team (Late st Contact Info) Description 05/05/2023 Telephone Pharmacy, [address] [address] Danielle Anderson, [facility] [address] [place] [address] Patient Assistance Program Allergies Active Allergy Reactions [...] Unit 3 12/31/19 16 Active Glucose Blood ([employer] CONTOUR NEXT TEST) STRP Use to test [...] hemoglobin A1c goal of less than 8.0% ([facility]) Inject 1 mg under the skin once [...] suspected opioid overdose. Seek immediate medical attention. [email or web address]?v=v26c [email or web address] 1 Each 3 11/28/19 23 Active Potassium [...] Overview: Per Obesity Taxonomy Coronary atherosclerosis of [place] coronary artery 09/15/2008 10/03/2008 Malaise and fatigue [...] mRNA, LNP-s, No Pre serve, 2-Dose Series (Aposense) 11/08/2020,10/11/2020 HEP A - Hepatitis A (Adult > 18 yrs) 04/11/2011, 09/20/2010 Hepatitis B, 20+ yrs 07/05/2015 Pneumococcal Conjugate Vacci ne, 20-valent ([id number]) 03/13/2023 Pneumococcal Polysaccharide PPV23 (Pneumovax) 02/19/2018,03/09/2007 SEASONAL [...] not received for 2023. Routing to front load trash truck driver to refax to marketing senior recruiter. Danielle Anderson PharmD, BCACP Clinical Pharmacist Medication Therapy Disease Management 05/05/2023, 11:42 AM documented in this encounter Plan of Treatment Upcoming Encounters Date Type Department Care Team (Latest Contact Info) Description 05/07/2023 1:00 PM EST Telemedicine Pharmacy, [facility] 132 [facility] [place] [address] [facility] [address] 05/07/2023 1:30 PM EST Telemedicine Pharmacy, [facility] 132 [facility] [place] [address] [facility] 132 [facility] [place] [address] 05/19/2023 3:40 PM EST Office Visit Neurology [facility] [address] [place] [address] Monica Shrestha MD 200 [facility] [place] [address] 05/22/2023 11:30 AM EST Office Visit Pharmacy, [address] [address] 06/04/2023 11:00 AM EST [facility] 132 [facility] [place] [address] 06/22/2023 12:30 PM EST Telemedicine Psychiatry, [facility] [address] [place] [address] Rj Mai MD [address] [facility] [address] 07/29/2023 12:45 PM EST Hospital Encounter ENDO [facility], Endoscopy Room [facility] [address] [place] [phone] Aj Pruett DO [address] [place] [address] 07/29/2023 12:45 PM EST - 07/29/2023 1:15 PM EST Surgery ENDO [facility], Endoscopy Room [facility] [address] [place] [phone] Aj Pruett, [address] [place] [address] COLONOSCOPY FLEXIBLE PROXIMAL DIAGNOSTIC 08/19/2023 2:15 PM EDT Office Visit Hematology/Oncolog y [facility] [place] [address] [place] [address] Sunil Bourgeois MD [address] [place] [address] Scheduled Procedures Name Priority Associated Diagnoses Date/Ti [...] this encounter Medical Devices Implanted Type Area Loans Officer Device Identifier Shelf Expiration Date Model / Serial / Lot Envelope Tyrx Med Antibacteril - [id number] Implanted:Qty: 1 on 08/22/2022 by Rafia Small MD at OR [facility] N/A: Spine Lumbar [employer] 03/10/2023 [id number] / / [id number] documented as of this encounter Visit Diagnoses [...] the patient have Health Care Power of Escalator Installer? No Code Status History Code Status Date Activated Date Inactivated Comments Full Code 01/21/2011 12:12 PM 01/22/2011 8:48 PM This order reflects the patients wishes and were consensually agreed upon. Question Answer Comments Discussion of Advance Directives occurred with: Patient Does the patient have a Living Will? No Does the patient have Health Care Power of Escalator Installer? No Care Teams Overhead Line Worker Relationship Specialty Start Date End Date Scott Weldon MD [address] [place] [address] PCP - General Family Medicine 08/03/18 documented as of this encounter
--- OUTSIDE RECORDS SUMMARY | 2023-08-12 09:25 | External Medical Summary | Summary of Care ---
Author Name Unknown Organization [facility] Address [address] [place] [address] Phone [phone] Care Team Providers Care Loom Tuner Name Role Phone Scott Weldon MD Primary Care Provider + Reason for Visit * Reason Comments eRx-Medication Refill Encounter Details Date Type Department Care Team (Late st Contact Info) Description 04/17/2023 Refill Gastroenterology, [place] [address] [place] [address] Charlee Marks MD [address] [place] [address] Liver cirrhosis secondary to nonalcoholic steatohepatitis (MENDEZ) (HCC); Obesity, Class III, BMI 40-49.9 (morbid obesity) (HCC); Type 2 diabetes mellitus with hemoglobin A1c goal of less than 8.0% (HCC); HTN, goal below 130/80; Dyslipidemia, goal LDL below 100; Other ascites; Peripheral edema Allergies Active Allergy Reactions Criticality Noted Date Comments Naproxen Sodium Bleeding High 11/29/2013 Pollen 12/03/2022 Seasonal Food (See Comments) Anaphylaxis High 04/20/2019 Hot peppers (oils) Kiwi Extract Anaphylaxis High 04/20/2019 documented as of this encounter (statuses as of 04/20/2023) Medications Medication Sig Dispensed Refills Start Date [...] Unit 3 12/31/19 16 Active Glucose Blood ([employer] CONTOUR NEXT TEST) STRP Use to test [...] taking differently:40 mg OralHS, Reported on 10/06/2022 NovoLIN R ReliOn 100 UNIT/ML Injection Solution (insulin REGULAR human)Indications:T ype 2 diabetes mellitus with hemoglobin A1c goal of less than 8.0% (HCC),DM type 2, not at goal (HCC) INJECT UP TO 275 UNITS SUBCUTANEOUSLY ONCE DAILY, VIA PUMP 90 mL 3 09/20/19 23 Active Magnesium Oxide 400 (240 Mg) MG Oral [...] suspected opioid overdose. Seek immediate medical attention. [email or web address]/watch?v=v26c [email or web address] 1 Each 3 11/28/19 23 Active Potassium [...] anxiety 120 Tablet 3 02/03/20 23 Active Baclofen 10 MG Oral Tablet (Lioresal)Indicatio ns:muscle spasms Take 1 Tablet by mouth 3 times a day as needed for Muscle spasms. 90 Tablet 5 02/13/20 23 Active Omeprazole 20 MG Oral Capsule Delayed Release (PriLOSEC)Indicatio ns:Gastroesophageal reflux disease without esophagitis TAKE 1 CAPSULE BY MOUTH TWICE A DAY 180 Capsule 1 03/05/20 Active Buprenorphine 5 MCG/HR Transdermal Patch Weekly (Butrans) Place 1 Patch topically on the skin once a week. 4 Patch 0 04/07/20 Active Eszopiclone 1 MG Oral Tablet (Lunesta)Indication s:sleep Take 1 Tablet by mouth at bedtime. 30 Tablet 2 04/06/20 Active Atenolol 100 MG Oral Tablet (Tenormin)Indicatio ns:Tachycardia TAKE 1 TABLET BY MOUTH TWICE A DAY 180 Tablet 3 04/09/20 Active Albuterol Sulfate HFA 108 (90 Base) MCG/ACT Inhalation Aerosol Solution INHALE 2 PUFFS BY MOUTH EVERY 6 HOURS NEEDED FOR SHORTNESS OF BREATH 18 g 1 04/09/20 Active Loratadine 10 MG Oral Tablet (Claritin)Indicatio [...] 180 days 1 Each 1 04/16/20 Active Spironolactone 50 MG Oral Tablet (Aldactone)Indicati ons:Liver cirrhosis secondary to nonalcoholic steatohepatitis (MENDEZ) (HCC),Obesity, Class III, BMI 40-49.9 (morbid obesity) (HCC),Type 2 diabetes mellitus with hemoglobin A1c goal of less than 8.0% (HCC),HTN, goal below 130/80,Dyslipidemia , goal LDL below 100,Other ascites,Peripheral edema TAKE 1 TABLET BY MOUTH EVERY DAY IN THE MORNING 90 Tablet 1 04/20/20 23 Active Spironolactone 50 MG Oral Tablet (Aldactone)Indicati ons:Liver cirrhosis secondary to nonalcoholic steatohepatitis (MENDEZ) (HCC),Obesity, Class III, BMI 40-49.9 (morbid obesity) (HCC),Type 2 diabetes mellitus with hemoglobin A1c goal of less than 8.0% (HCC),HTN, goal below 130/80,Dyslipidemia , goal LDL below 100,Other ascites,Peripheral edema TAKE 1 TABLET BY MOUTH EVERY DAY IN THE MORNING 90 Tablet 1 12/05/19 23 023 Discontinued documented as of this encounter (statuses as of 04/20/2023) Active Problems Problem Noted Date Diagnosed Date [...] as of this encounter (statuses as of 04/20/2023) Resolved Problems Problem Noted Date Diagnosed Date [...] Overview: Per Obesity Taxonomy Coronary atherosclerosis of [place] coronary artery 09/15/2008 10/03/2008 Malaise and fatigue [...] as of this encounter (statuses as of 04/20/2023) Immunizations Name Administration Dates Next Due COVID-19 mRNA, LNP-s, No Pre serve, 2-Dose Series ([employer]y) 11/08/2020,10/11/2020 HEP A - Hepatitis A (Adult > 18 yrs) 04/11/2011, 09/20/2010 Hepatitis B, 20+ yrs 07/05/2015 Pneumococcal Conjugate Vacci ne, 20-valent ([id number]) 03/13/2023 Pneumococcal Polysaccharide PPV23 (Pneumovax) 02/19/2018,03/09/2007 SEASONAL [...] encounter Miscellaneous Notes * Telephone Encounter - Charlee Marks MD - 04/20/2023 12:26 PM EST Signed Prescriptions: Disp Refills Spironolactone 50 MG Oral Tablet (Aldacton*90 Tab*1 Sig: TAKE 1 TABLET BY MOUTH EVERY DAY IN THE MORNING Authorizing Provider: CHARLEE MARKS * Telephone Encounter - Cassandra Bowers armored cable machine operator - 04/17/2023 9:43 AM EST Pending Prescriptions: Disp Refills Spironolactone 50 MG Oral Tablet [Pharmacy*90 Tab*1 Sig: TAKE 1 TABLET BY MOUTH EVERY DAY IN THE MORNING * Telephone Encounter - Cassandra Bowers armored cable machine operator - 04/17/2023 9:42 AM EST Patient is up to date for office visits. Pending Prescriptions: Disp Refills Spironolactone 50 MG Oral Tablet (Aldacto*90 Tab*1 Sig: TAKE 1 TABLET BY MOUTH EVERY DAY IN THE MORNING Last Visit: 05/15/2017 (in office), Visit date not found (telemedicine) Next Visit: Visit date not found If no future appointments scheduled, and last appointment is greater than a year ago, please schedule patient for a follow-up appointment Last date the medication was ordered: 12/04 Pharmacy: [id number] [address] [facility] Is this request for a controlled substance?No it is not controlled. Urine Drug Screen: Results for orders placed or performed in visit on 03/11/22 PAIN MANAGEMENT DRUG PANEL, URINE W/ INTERPRETATION Result Value Compliance Interpretation Based on the medication information provided: The positive oxycodone screening result is CONSISTENT with recent oxycodone use. Confirmatory testing is available upon request. Amphetamine Negative Benzodiazepines Negative Cannabinoids Negative Cocaine Metabolite Negative Fentanyl Negative Hydrocodone / Hydromorphone Negative Methadone Metabolite Negative Morphine / Codeine Negative Oxycodone / Oxymorphone Positive (A) Valid Interpretation Normal Creatinine ANN MARIE 22 Narrative Cutoff Concentrations: Drug Level Amphetamines [...] Department Care Team (Latest Contact Info) Description 04/24/2023 8:00 AM EST Office Visit General Surgery, [facility] [address] [place] [address] Kevin Wilhelm MD [address] [place] [address] 05/07/2023 1:00 PM EST Telemedicine Pharmacy, [facility] [address] [place] [address] [facility] [address] [place] [address] 05/07/2023 1:30 PM EST Telemedicine Pharmacy, [facility] 132 [facility] [address] [facility] [place] [address] 05/19/2023 3:40 PM EST Office Visit Neurology [facility] [address] [place] [address] Monica Shrestha MD [address] [place] [address] 05/22/2023 11:30 AM EST Office Visit Pharmacy, [place] [address] [place] [address] [place] [address] [place] [address] 06/04/2023 11:00 AM EST Imaging Radiology [facility] [address] [place] [address] 06/22/2023 12:30 PM EST Telemedicine Psychiatry, [facility] 200 [facility] [place] [address] Rj Mai MD [address] [place] [address] 07/29/2023 12:45 PM EST Hospital Encounter ENDO [facility], Endoscopy Room [facility] [address] [place] [address] Aj Pruett, [address] [place] [address] 07/29/2023 12:45 PM EST - 07/29/2023 1:15 PM EST Surgery ENDO [facility], Endoscopy Room [facility] [address] [place] [address] Aj Pruett, DO [address] [place] [address] COLONOSCOPY FLEXIBLE PROXIMAL DIAGNOSTIC 08/19/2023 2:15 PM EDT Office Visit Hematology/Oncolog y [facility] [address] [place] [address] Sunil Bourgeois MD [address] [place] [address] Scheduled Procedures Name Priority Associated Diagnoses Date/Ti me COLONOSCOPY FLEXIBLE PROXIMAL DIAGNOSTIC Screen for colon cancer 07/29/2023 12:45 PM EST Health Maintenance Due Date Last Done Comments HPV/Co-Test 2002 Cervical Cancer Screening 04/12/2018 Pap Smear 04/12/2018 04/12/2015, 10/2014, 09/28/2008, Additional history exists Mammogram 05/07/2019 05/07/2018, 01/21/2016 COLONOSCOPY-EVERY 5 YRS AGES 18-100 06/27/2020 06/27/2015, 06/27/2015, 06/06/2010, Additional history exists Zoster Vaccines (1 of 2) 2022 Diabetic Eye Exam 01/16/2023 01/16/2022, , 02/12/2016, Additional history exists COVID-19 Vaccine (2022- season) 2023 11/08/2020, 10/11/2020 B-12 06/11/2023 06/11/2022, 0 12/2020, 07/05/2019, Additional history exists HbA1c 08/19/2023 02/18/2023, 010 09/2022, 05/03/2022, Additional [...] this encounter Medical Devices Implanted Type Area Pilot Control Operator Device Identifier Shelf Expiration Date Model / Serial / Lot Envelope Tyrx Med Antibacteril - [id number] Implanted:Qty: 1 on 08/22/2022 by Rafia Small MD at OR [facility] N/A: Spine Lumbar [employer] 03/10/2023 [id number] / / [id number] documented as of this encounter Visit Diagnoses Diagnosis Liver cirrhosis secondary to nonalcoholic steatohepatitis (MENDEZ) (HCC) Obesity, Class III, BMI 40-49.9 (morbid obesity) (HCC) Morbid obesity Type 2 diabetes mellitus with hemoglobin A1c goal of less than 8.0% (HCC) HTN, goal below 130/80 Unspecified essential hypertension Dyslipidemia, goal LDL below 100 Other and unspecified hyperlipidemia Other ascites Peripheral edema Edema Screen for colon cancer Special screening for [...] the patient have Health Care Power of Community Service Manager? No Code Status History Code Status Date Activated Date Inactivated Comments Full Code 01/21/2011 12:12 PM 01/22/2011 8:48 PM This order reflects the patients wishes and were consensually agreed upon. Question Answer Comments Discussion of Advance Directives occurred with: Patient Does the patient have a Living Will? No Does the patient have Health Care Power of Community Service Manager? No Care Teams Loom Tuner Relationship Specialty Start Date End Date Scott Weldon MD [address] [place] [address] PCP - General Family Medicine 08/03/18 documented as of this encounter
--- OUTSIDE RECORDS SUMMARY | 2023-08-12 09:25 | External Medical Summary | Summary of Care ---
Author Name Unknown Organization [facility] Address 100 [facility] [place] [address] Phone [phone] Care Team Providers Care Biodiesel Product Manager Name Role Phone Scott Montoya MD Primary Care Provider + Reason for Visit * Reason Onset Date Comments Medication Refill 05/03/2023 Encounter Details Date Type Department Care Team (Late st Contact Info) Description 05/03/2023 Refill Family Practice [facility] [address] [place] [address] Scott Montoya MD [address] [place] [address] Allergies Active Allergy Reactions Criticality Noted Date Comments Naproxen Sodium Bleeding High 11/29/2013 Pollen 12/03/2022 Seasonal Food (See Comments) Anaphylaxis High 04/20/2019 Hot peppers (oils) Kiwi Extract Anaphylaxis High 04/20/2019 documented as of this encounter (statuses as of 05/04/2023) Medications Medication Sig Dispensed Refills Start Date [...] ONCE DAILY, VIA PUMP 90 mL 3 3 Active Magnesium Oxide 400 (240 Mg) MG [...] A1c goal of less than 8.0% ([facility]) Inject 1 mg under the [...] suspected opioid overdose. Seek immediate medical attention. [email or web address]?v=[email or web address] 1 Each 3 3 Active Potassium Chloride ER 10 MEQ Oral Tablet Extended ReleaseIndications: HTN, goal below 130/80 TAKE 1 TABLET BY MOUTH TWICE A DAY WITH FOOD 180 Tablet 1 3 Active traZODone HCl 100 MG Oral Tablet (Desyrel) Take 1-2 Tablets by mouth at bedtime. 180 Tablet 0 3 Active hydrOXYzine HCl 25 MG Oral [...] for Muscle spasms. 90 Tablet 5 3 05/04/20 23 Discontinu ed(Refill) Buprenorphine 5 MCG/HR Transdermal Patch Weekly (Butrans) Place 1 Patch topically on the skin once a week. 4 Patch 0 3 05/03/20 23 Discontinu ed(Refill) documented as of this encounter (statuses as of 05/04/2023) Active Problems Problem Noted Date Diagnosed Date [...] as of this encounter (statuses as of 05/04/2023) Resolved Problems Problem Noted Date Diagnosed Date [...] Overview: Per Obesity Taxonomy Coronary atherosclerosis of [place] coronary artery 09/15/2008 10/03/2008 Malaise and fatigue [...] as of this encounter (statuses as of 05/04/2023) Immunizations Name Administration Dates Next Due COVID-19 mRNA, LNP-s, No Pre serve, 2-Dose Series ([employer]) 11/08/2020,10/11/2020 HEP A - Hepatitis A (Adult > 18 yrs) 04/11/2011, 09/20/2010 Hepatitis B, 20+ yrs 07/05/2015 Pneumococcal Conjugate Vacci ne, 20-valent ([id number]) 03/13/2023 Pneumococcal Polysaccharide PPV23 (Pneumovax) 02/19/2018,03/09/2007 SEASONAL [...] Telephone Encounter - Scott Montoya MD - 05/04/2023 10:31 PM EST Signed Prescriptions: Disp Refills Buprenorphine 5 MCG/HR Transdermal Patch W*4 Patch0 Sig: Place 1 Patch topically on the skin once a week. Authorizing Provider: SCOTT MONTOYA * Telephone Encounter - Kim Slater RPh - 05/04/2023 12:52 PM ESTPending Prescriptions: Disp Refills Buprenorphine 5 MCG/HR Transdermal Patch W*4 Patch0 Sig: Place 1 Patch topically on the skin once a week. * Telephone Encounter - Kim Slater RPh - 05/04/2023 12:51 PM EST I have reviewed the patients controlled substance dispensing history in the Prescription Drug Monitoring Program in compliance with the [facility] regulations before prescribing a controlled substance. PDMP checked on 05/04/2023. Pending Prescriptions: Disp Refills Buprenorphine 5 MCG/HR Transdermal Patch *4 Patch0 Sig: Place 1 Patch topically on the skin once a week. Last Visit: 03/13/2023 (in office), 09/08/2022 (telemedicine) Next Visit: Visit date not found Date medication was last filled: 04/07/23 Date medication is due for refill: 05/04/23 Pharmacy: [id number] Is this request for a controlled [...] in Results Review. Please approve if appropriate. Kim Walters PharmD Clinical Pharmacist [facility] ([facility]) [phone] 05/04/2023, 12:51 PM documented in this encounter Plan of Treatment Upcoming Encounters Date Type Department Care Team (Latest Contact Info) Description 05/07/2023 1:00 PM EST Telemedicine Pharmacy, [address] [place] [address] [place] [address] 05/07/2023 1:30 PM EST Telemedicine Pharmacy, [address] [place] [address] [place] [address] 05/19/2023 3:40 PM EST Office Visit Neurology [facility] 200 [facility] [place] [address] Monica Shrestha MD 200 [facility] [place] [address] 05/22/2023 11:30 AM EST Office Visit Pharmacy, [address] [address] 06/04/2023 11:00 AM EST Imaging Radiology [facility] 1st [facility] 132 [facility] [address] 06/22/2023 12:30 PM EST Telemedicine Psychiatry, [facility] 200 [facility] [place], [place] [address] Rj Mai MD [address] [facility] [place] [address] 07/29/2023 12:45 PM EST Hospital Encounter ENDO [facility], Endoscopy Room [facility] [address] [place] [address] Aj Pruett, DO [address] [place] [address] 07/29/2023 12:45 PM EST - 07/29/2023 1:15 PM EST Surgery ENDO [facility], Endoscopy Room [facility] [address] [place] [phone] Aj Pruett, DO [address] [place] [address] COLONOSCOPY FLEXIBLE PROXIMAL DIAGNOSTIC 08/19/2023 2:15 PM EDT Office Visit Hematology/Oncolog y [facility] [place] 200 [facility] [place], [place] [address] Sunil Bourgeois MD [address] [place] [address] Scheduled Procedures Name Priority Associated Diagnoses Date/Ti [...] this encounter Medical Devices Implanted Type Area Staff Nurse Device Identifier Shelf Expiration Date Model / Serial / Lot Envelope Tyrx Med Antibacteril - [id number] Implanted:Qty: 1 on 08/22/2022 by Rafia Small MD at OR [facility] N/A: Spine Lumbar [employer] 03/10/2023 [id number] / / [id number] documented as of this encounter Advance Directives [...] patient have Health Care Power of Lining Scrubber? No Code Status History Code Status Date Activated Date Inactivated Comments Full Code 01/21/2011 12:12 PM 01/22/2011 8:48 PM This order reflects the patients wishes and were consensually agreed upon. Question Answer Comments Discussion of Advance Directives occurred with: Patient Does the patient have a Living Will? No Does the patient have Health Care Power of Lining Scrubber? No Care Teams Biodiesel Product Manager Relationship Specialty Start Date End Date Scott Montoya MD 132 [facility] [place] [address] PCP - General Family Medicine 08/03/18 documented as of this encounter
--- OUTSIDE RECORDS SUMMARY | 2023-08-12 09:25 | External Medical Summary | Summary of Care ---
Author Name Unknown Organization [facility] Address [address] [facility] [place] [address] Phone [phone] Care Team Providers Care Engineering Project Manager Name Role Phone Scott Montoya MD Primary Care Provider + Reason for Visit * Reason Comments eRx-Medication Refill Encounter Details Date Type Department Care Team (Late st Contact Info) Description 04/17/2023 Refill Family Practice [facility] [address] [facility] [place] [address] Scott Montoya MD 132 [facility] [place] [address] HTN, goal below 130/80; Other ascites; Cirrhosis of liver with ascites, unspecified hepatic cirrhosis type ; Edema, unspecified type Allergies Active Allergy Reactions Criticality Noted Date Comments Naproxen Sodium Bleeding High 11/29/2013 Pollen 12/03/2022 Seasonal Food (See Comments) Anaphylaxis High 04/20/2019 Hot peppers (oils) Kiwi Extract Anaphylaxis High 04/20/2019 documented as of this encounter (statuses as of 04/17/2023) Medications Medication Sig Dispensed Refills Start Date [...] Unit 3 12/31/19 16 Active Glucose Blood ([employer] CONTOUR NEXT TEST) STRP Use to test [...] 5 06/15/19 18 Active Insulin Infusion Pump (MINIMVyyo 630G INSULIN PUMP) KITIndications:Type 2 diabetes mellitus [...] and 1 Capsule before bedtime. 270 Capsule 10/17/19 Active Escitalopram Oxalate 20 MG Oral Tablet (Lexapro) Take 1 Tablet by mouth in the morning. 90 Tablet 11/05/19 Active Ozempic (1 MG/DOSE) 4 MG/3ML Subcutaneous Solution Pen-injector (Semaglutide (1 MG/DOSE))Indication s:Type 2 diabetes mellitus with hemoglobin A1c goal of less than 8.0% ([facility]) Inject 1 mg under the skin once a week. Dose increase 3 mL 11/06/19 Active Dicyclomine HCl 20 MG Oral Tablet (Bentyl) Take 1 Tablet by mouth 2 times a day as needed for Pain or Cramping. 180 Tablet 3 11/15/19 Active Naloxone HCl 4 MG/0.1ML Nasal Liquid (Narcan Nasal)Indications:C ontrolled substance agreement signed,Chronic pain syndrome Administer 1 spray into 1 nostril for suspected opioid overdose. Seek immediate medical attention. [email or web address]://[email or web address]/[email or web address]?v=[email or web address] 1 Each 3 11/28/19 Active Spironolactone 50 MG Oral Tablet (Aldactone)Indicati ons:Liver cirrhosis secondary to nonalcoholic steatohepatitis (MENDEZ) (HCC),Obesity, Class III, BMI 40-49.9 (morbid obesity) (HCC),Type 2 diabetes mellitus with hemoglobin A1c goal of less than 8.0% (HCC),HTN, goal below 130/80,Dyslipidemia , goal LDL below 100,Other ascites,Peripheral edema TAKE 1 TABLET BY MOUTH EVERY DAY IN THE MORNING 90 Tablet 1 12/05/19 Active Potassium Chloride ER 10 MEQ Oral Tablet Extended ReleaseIndications: HTN, goal below 130/80 TAKE 1 TABLET BY MOUTH TWICE A DAY WITH FOOD 180 Tablet 1 01/16/20 Active traZODone HCl 100 MG Oral Tablet [...] A DAY 180 Capsule 1 03/05/20 Active Ondansetron HCl 4 MG Oral Tablet Take 1 Tablet by mouth every 8 hours as needed for Nausea. 20 Tablet 0 03/24/20 Active Buprenorphine 5 MCG/HR Transdermal Patch Weekly [...] BEDTIME 90 Tablet 1 04/17/20 23 Active Furosemide 40 MG Oral Tablet (Lasix)Indications: Other ascites,Cirrhosis of liver with ascites, unspecified hepatic cirrhosis type,Edema, unspecified type TAKE 1 TABLET BY MOUTH EVERY DAY IN THE MORNING 90 Tablet 1 04/17/20 23 Active Losartan Potassium 25 MG Oral Tablet (Cozaar)Indications :HTN, goal below 130/80 Take 1 Tablet by mouth at bedtime. 90 Tablet 2 09/03/19 23 023 Discontinued Furosemide 40 MG Oral Tablet (Lasix)Indications: Other ascites,Cirrhosis of liver with ascites, unspecified hepatic cirrhosis type,Edema, unspecified type TAKE 1 TABLET BY MOUTH EVERY DAY IN THE MORNING 90 Tablet 1 11/06/19 23 023 Discontinued documented as of this encounter (statuses as of 04/17/2023) Active Problems Problem Noted Date Diagnosed Date [...] as of this encounter (statuses as of 04/17/2023) Resolved Problems Problem Noted Date Diagnosed Date [...] Overview: Per Obesity Taxonomy Coronary atherosclerosis of [place] coronary artery 09/15/2008 10/03/2008 Malaise and fatigue [...] as of this encounter (statuses as of 04/17/2023) Immunizations Name Administration Dates Next Due COVID-19 mRNA, LNP-s, No Pre serve, 2-Dose Series ([employer]) 11/08/2020,10/11/2020 HEP A - Hepatitis A (Adult > 18 yrs) 04/11/2011, 09/20/2010 Hepatitis B, 20+ yrs 07/05/2015 Pneumococcal Conjugate Vacci ne, 20-valent ([id number]) 03/13/2023 Pneumococcal Polysaccharide PPV23 (Pneumovax) 02/19/2018,03/09/2007 SEASONAL [...] or making decisions? (5 years old or older No 04/20/2019 documented as of this encounter Miscellaneous Notes * Telephone Encounter - Fito Fernandez, [facility] - 04/17/2023 3:41 PM ESTSigned Prescriptions: Disp Refills Losartan Potassium 25 MG Oral Tablet (Coza*90 Tab*1 Sig: TAKE 1 TABLET BY MOUTH EVERYDAY AT BEDTIMEAuthorizing Provider: SCOTT MONTOYA User: FITO HILLMAN Furosemide 40 MG Oral Tablet (Lasix) 90 Tab*1 Sig: TAKE 1 TABLET BY MOUTH EVERY DAY IN THE MORNINGAuthorizing Provider: SCOTT MONTOYA User: FITO HILLMAN documented in this encounter Plan of Treatment Upcoming Encounters Date Type Department Care Team (Latest Contact Info) Description 04/24/2023 8:00 AM EST Office Visit General Surgery, [facility] [address] [place] [address] Kevin Wilhelm MD [address] [facility] [place] [address] 05/07/2023 1:00 PM EST Telemedicine Pharmacy, [facility] [address] [place] [address] [facility] [address] [facility] [place] [address] 05/07/2023 1:30 PM EST Telemedicine Pharmacy, [facility] [address] [place] [address] [facility] [address] [facility] [place] [address] 05/19/2023 3:40 PM EST Office Visit Neurology [facility] [address] [place] [address] Monica Shrestha MD [address] [place] [address] 05/22/2023 11:30 AM EST Office Visit Pharmacy, [address] [place] [address] [place] [address] 06/04/2023 11:00 AM EST Imaging Radiology [facility] [address] [facility] [place] [address] 06/22/2023 12:30 PM EST Telemedicine Psychiatry, [facility] 200 [facility] [place], [place] [address] Rj Mai MD [address] [facility] [address] 07/29/2023 12:45 PM EST Hospital Encounter ENDO [facility], Endoscopy Room [facility] [address] [place] [phone] Aj Pruett, DO [address] [place] [address] 07/29/2023 12:45 PM EST - 07/29/2023 1:15 PM EST Surgery ENDO [facility], Endoscopy Room [facility] [address] [place] [address] Aj Pruett, DO [address] [place] [address] COLONOSCOPY FLEXIBLE PROXIMAL DIAGNOSTIC 08/19/2023 2:15 PM EDT Office Visit Hematology/Oncolog y [facility] 200 [facility] [place], [place] [address] Sunil Bourgeois MD 200 [facility] [place], [place] [address] Scheduled Procedures Name Priority Associated Diagnoses Date/Ti [...] 06/11/2022, 01/0 12/2020, 07/05/2019, Additional history exists HbA1c 08/19/2023 [...] this encounter Medical Devices Implanted Type Area Habitat Management Coordinator Device Identifier Shelf Expiration Date Model / Serial / Lot Envelope Tyrx Med Antibacteril - [id number] Implanted:Qty: 1 on 08/22/2022 by Rafia Small MD at OR [facility] N/A: Spine Lumbar [employer] 03/10/2023 [id number] / / [id number] documented as of this encounter Visit Diagnoses Diagnosis HTN, goal below 130/80 Unspecified essential hypertension Other ascites Cirrhosis of liver with ascites, unspecified hepatic cirrhosis type Edema, unspecified type Screen for colon cancer Special screening for [...] the patient have Health Care Power of Wafer Production Lead Worker? No Code Status History Code Status Date Activated Date Inactivated Comments Full Code 01/21/2011 12:12 PM 01/22/2011 8:48 PM This order reflects the patients wishes and were consensually agreed upon. Question Answer Comments Discussion of Advance Directives occurred with: Patient Does the patient have a Living Will? No Does the patient have Health Care Power of Wafer Production Lead Worker? No Care Teams Engineering Project Manager Relationship Specialty Start Date End Date Scott Montoya MD [address] [place] [address] PCP - General Family Medicine 08/03/18 documented as of this encounter
--- OUTSIDE RECORDS SUMMARY | 2023-08-12 09:25 | External Medical Summary | Summary of Care ---
Author Name Unknown Organization [facility] Address 100 [facility] [place] [address] Phone [phone] Care Team Providers Care Motor Coach Tour Operator Name Role Phone Scott Weldon MD Primary Care Provider + Reason for Visit * Reason Onset Date Comments Medication Question 04/20/2023 Encounter Details Date Type Department Care Team (Late st Contact Info) Description 04/20/2023 Telephone Pharmacy, [place] [address] [place] [address] [facility] [address] [place] [address] Medication Question Allergies Active Allergy Reactions Criticality [...] suspected opioid overdose. Seek immediate medical attention. [email or web address] 1 Each 3 3 Active [...] for anxiety 120 Tablet 3 3 Active Baclofen 10 MG Oral Tablet (Lioresal)Indication s:muscle spasms Take 1 Tablet by mouth 3 times a day as needed for Muscle spasms. 90 Tablet 5 3 Active Omeprazole 20 MG Oral Capsule Delayed Release (PriLOSEC)Indication s:Gastroesophageal reflux disease without esophagitis TAKE 1 CAPSULE BY MOUTH TWICE A DAY 180 Capsule 1 3 Active Buprenorphine 5 MCG/HR Transdermal Patch Weekly (Butrans) Place 1 Patch topically on the skin once a week. 4 Patch 0 3 Active Eszopiclone 1 MG Oral Tablet [...] on tongue. 90 Tablet 2 3 Active documented as of this encounter [...] Overview: Per Obesity Taxonomy Coronary atherosclerosis of [place] coronary artery 09/15/2008 10/03/2008 Malaise and fatigue [...] mRNA, LNP-s, No Pre serve, 2-Dose Series ([employer]) 11/08/2020,10/11/2020 HEP A - Hepatitis A (Adult > 18 yrs) 04/11/2011, 09/20/2010 Hepatitis B, 20+ yrs 07/05/2015 Pneumococcal Conjugate Vacci ne, 20-valent ([id number]) 03/13/2023 Pneumococcal Polysaccharide PPV23 (Pneumovax) 02/19/2018,03/09/2007 SEASONAL [...] Telephone Encounter - Radha Mckeon RPh - 04/20/2023 1:34 PM EST Patient Phone Numbers Spoke to patient via phone. Provided Green [employer] number, paperwork faxed to company on 03/27. Radha Mckeon, Pharm D, BCACP Clinical Pharmacist 04/20/2023, 1:39 PM * Telephone Encounter - Jill Clarke OSA - 04/20/2023 1:17 PM EST Caller's name: Carmen Preferred call back number(OFFICE NUMBER FOR ): [phone] Reason for call: Medication question: Patient was supposed to be prescribed the 2mg Ozempic and shehas not received it yet. Please advise and return her call. Thank you, Jill Clarke Press Loader [facility] 04/20/2023,1:18 PM documented in this encounter Plan of Treatment Upcoming Encounters Date Type Department Care Team (Latest Contact Info) Description 04/24/2023 8:00 AM EST Office Visit General Surgery, [facility] [address] [place] [address] Kevin Wilhelm MD [address] [facility] [place] [address] 05/02/2023 9:20 AM EST Office Visit Family Practice [facility] [address] [place] [address] Tatiana Noguera MD [address] [place] [address] 05/07/2023 1:00 PM EST Telemedicine Pharmacy, [facility] [address] [place] [address] [facility] [address] [place] [address] 05/07/2023 1:30 PM EST Telemedicine Pharmacy, [facility] [address] [place] [address] [facility] [address] [place] [address] 05/19/2023 3:40 PM EST Office [facility] [address] [place] [address] Monica Shrestha MD [address] [place] [address] 05/22/2023 11:30 AM EST Office Visit Pharmacy, [address] [address] [place], [facility] [address] [facility] [address] 06/04/2023 11:00 AM EST Imaging Radiology [address] [facility] [address] 06/22/2023 12:30 PM EST [facility] 200 [facility] [place], [place] [address] Rj Mai MD [address] [facility], [place] [address] 07/29/2023 12:45 PM EST Hospital Encounter ENDO [facility], Endoscopy Room [facility] [address] [place] [address] Aj Pruett, DO [address] [place] [address] 07/29/2023 12:45 PM EST - 07/29/2023 1:15 PM EST Surgery ENDO [facility], Endoscopy Room [facility] [address] [place] [phone] Aj Pruett, DO [address] [place] [address] COLONOSCOPY FLEXIBLE PROXIMAL DIAGNOSTIC 08/19/2023 2:15 PM EDT Office Visit Hematology/Oncolog y [facility] [place] 200 [facility] [place], [place] [address] Sunil Bourgeois MD [address] [place] [address] Scheduled Procedures Name Priority Associated Diagnoses Date/Ti [...] 07/05/2019, Additional history exists HbA1c 08/19/2023 02/18/2023, 01/0 09/2022, 05/03/2022, Additional [...] this encounter Medical Devices Implanted Type Area Photo Finisher Device Identifier Shelf Expiration Date Model / Serial / Lot Envelope Tyrx Med Antibacteril - [id number] Implanted:Qty: 1 on 08/22/2022 by Rafia Small MD at OR [facility] N/A: Spine Lumbar [employer] 03/10/2023 [id number] / / [id number] documented as of this encounter Advance Directives [...] the patient have Health Care Power of County Administrator? No Code Status History Code Status Date Activated Date Inactivated Comments Full Code 01/21/2011 12:12 PM 01/22/2011 8:48 PM This order reflects the patients wishes and were consensually agreed upon. Question Answer Comments Discussion of Advance Directives occurred with: Patient Does the patient have a Living Will? No Does the patient have Health Care Power of County Administrator? No Care Teams Motor Coach Tour Operator Relationship Specialty Start Date End Date Scott Weldon MD [address] [place] [address] PCP - General Family Medicine 08/03/18 documented as of this encounter
--- OUTSIDE RECORDS SUMMARY | 2023-08-12 09:25 | External Medical Summary | Summary of Care ---
Author Name Unknown Organization [facility] Address [address] [facility] [place] [address] Phone [phone] Care Team Providers Care Italian Teacher Name Role Phone Scott Montoya MD Primary Care Provider + Reason for Visit * Reason Onset Date Comments Medication Refill 05/04/2023 Encounter Details Date Type Department Care Team (Late st Contact Info) Description 05/04/2023 Refill Family Practice [facility] [address] [place] [address] Scott Montoya MD [address] [place] [address] Back spasm Allergies Active Allergy Reactions Criticality [...] Dosing Unit 3 6 Active Glucose Blood (authorGEN CONTOUR NEXT TEST) STRP Use to test [...] A1c goal of less than 8.0% ([facility]) Inject 1 mg under the [...] suspected opioid overdose. Seek immediate medical attention. [email or web address]://[email or web address]/[email or web address]?v=v26c [email or web address] 1 Each 3 3 Active Potassium Chloride [...] Muscle spasms. 90 Tablet 5 3 Active Baclofen 10 MG Oral Tablet (Lioresal)Indicatio ns:muscle spasms Take 1 Tablet by mouth 3 times a day as needed for Muscle spasms. 90 Tablet 5 3 05/04/20 23 Discontinu ed(Refill) documented as of this [...] Obesity Taxonomy Coronary atherosclerosis of [place] coronary artery 09/15/2008 10/03/2008 Malaise and fatigue [...] mRNA, LNP-s, No Pre serve, 2-Dose Series ([employer]) 11/08/2020,10/11/2020 HEP A - Hepatitis A (Adult > 18 yrs) 04/11/2011, 09/20/2010 Hepatitis B, 20+ yrs 07/05/2015 Pneumococcal Conjugate Vacci ne, 20-valent ([id number]) 03/13/2023 Pneumococcal Polysaccharide PPV23 (Pneumovax) 02/19/2018,03/09/2007 SEASONAL [...] the money to buy more. Never true 10/06/20 23 Within the past 12 months, t [...] Encounter - Scott Montoya MD - 05/04/2023 10:39 PM EST Signed Prescriptions: Disp Refills Baclofen 10 MG Oral Tablet (Lioresal) 90 Tab*5 Sig: Take 1 Tablet by mouth 3 times a day as needed for Muscle spasms. Authorizing Provider: SCOTT MONTOYA * Telephone Encounter - Alison Ellison LPN - 05/04/2023 12:33 PM ESTPending Prescriptions: Disp Refills Baclofen 10 MG Oral Tablet (Lioresal) 90 Tab*5 Sig: Take 1 Tablet by mouth 3 times a day as needed for Muscle spasms. * Telephone Encounter - Alison Ellison LPN - 05/04/2023 12:32 PM EST Is this something that you want changed to a 90 day fill? I did not change anything since not sure. * Telephone Encounter - Esther Borrero OSA - 05/04/2023 11:40 AM EST Did you pend patient's preferred pharmacy and medication before forwarding?no Pharmacy: [id number] [id number] [facility] Pending Prescriptions: Disp Refills Baclofen 10 MG [...] appointment Last date the medication was ordered: 02/12/2023 90 day request Is this request for a controlled substance?No [...] Description 05/07/2023 1:00 PM EST Telemedicine Pharmacy, [facility] 132 [facility] [place] [address] [facility] 132 [facility] [place] [address] 05/07/2023 1:30 PM EST Telemedicine Pharmacy, [facility] 132 [place] [address] [facility] [address] [facility] [place] [address] 05/19/2023 3:40 PM EST Office Visit Neurology [facility] [address] [place] [address] Monica Shrestha MD [address] [place] [address] 05/22/2023 11:30 AM EST Office Visit Pharmacy, [place] [address] [place] [address] [place] [address] [place] [address] 06/04/2023 11:00 AM EST Imaging Radiology [facility] 1st [facility] 132 [place] [address] 06/22/2023 12:30 PM EST Telemedicine Psychiatry, [facility] 200 [facility] [place] [address] Rj Mai MD [address] [place] [address] 07/29/2023 12:45 PM EST Hospital Encounter ENDO [facility], Endoscopy Room [facility] [address] [place] [address] Aj Pruett, DO [address] [place] [address] 07/29/2023 12:45 PM EST - 07/29/2023 1:15 PM EST Surgery ENDO [facility], Endoscopy Room [facility] [address] [place] [phone] Aj Pruett, DO [address] [place] [address] COLONOSCOPY FLEXIBLE PROXIMAL DIAGNOSTIC 08/19/2023 2:15 PM EDT Office Visit Hematology/Oncolog y [facility] 200 [facility] [place] [address] Sunil Bourgeois MD [address] [place] [address] Scheduled Procedures Name Priority Associated Diagnoses Date/Ti [...] this encounter Medical Devices Implanted Type Area Convention Planner Device Identifier Shelf Expiration Date Model / Serial / Lot Envelope Tyrx Med Antibacteril - [id number] Implanted:Qty: 1 on 08/22/2022 by Rafia Small MD at OR [facility] N/A: Spine Lumbar [employer] 03/10/2023 [id number] / / [id number] documented as of this encounter Visit Diagnoses [...] the patient have Health Care Power of Accounting Analyst? No Code Status History Code Status Date Activated Date Inactivated Comments Full Code 01/21/2011 12:12 PM 01/22/2011 8:48 PM This order reflects the patients wishes and were consensually agreed upon. Question Answer Comments Discussion of Advance Directives occurred with: Patient Does the patient have a Living Will? No Does the patient have Health Care Power of Accounting Analyst? No Care Teams Italian Teacher Relationship Specialty Start Date End Date Scott Montoya MD [address] [place] [address] PCP - General Family Medicine 08/03/18 documented as of this encounter
--- OUTSIDE RECORDS SUMMARY | 2023-08-12 09:25 | External Medical Summary | Summary of Care ---
Author Name Unknown Organization [facility] Address [address] [address] Phone [phone] Care Team Providers Care Culinary Arts Teacher Name Role Phone Scott Weldon MD Primary Care Provider + Reason for Visit * Reason Onset Date Comments Medication Question 04/20/2023 Ozempic Encounter Details Date Type Department Care Team (Late st Contact Info) Description 04/20/2023 Telephone Family Practice [facility] 132 [facility] [place] [address] Scott Weldon MD [address] [place] [address] Medication Question (Ozempic) Allergies Active Allergy Reactions Criticality Noted Date Comments Naproxen Sodium Bleeding High 11/29/2013 Pollen 12/03/2022 Seasonal Food (See Comments) Anaphylaxis High 04/20/2019 Hot peppers (oils) Kiwi Extract Anaphylaxis High 04/20/2019 documented as of this encounter (statuses as of 04/21/2023) Medications Medication Sig Dispensed Refills Start Date [...] Dosing Unit 3 6 Active Glucose Blood ([employer] CONTOUR NEXT TEST) STRP Use to test [...] goal of less than 8.0% ([facility]) Inject 1 mg under the skin [...] suspected opioid overdose. Seek immediate medical attention. [email or web address]?v=[email or web address] [email or web address] 1 Each 3 3 Active [...] as of this encounter (statuses as of 04/21/2023) Active Problems Problem Noted Date Diagnosed Date [...] as of this encounter (statuses as of 04/21/2023) Resolved Problems Problem Noted Date Diagnosed Date [...] Overview: Per Obesity Taxonomy Coronary atherosclerosis of [place] coronary artery 09/15/2008 10/03/2008 Malaise and fatigue [...] as of this encounter (statuses as of 04/21/2023) Immunizations Name Administration Dates Next Due COVID-19 mRNA, LNP-s, No Pre serve, 2-Dose Series (Eventifier) 11/08/2020,10/11/2020 HEP A - Hepatitis A (Adult > 18 yrs) 04/11/2011, 09/20/2010 Hepatitis B, 20+ yrs 07/05/2015 Pneumococcal Conjugate Vacci ne, 20-valent ([id number]) 03/13/2023 Pneumococcal Polysaccharide PPV23 (Pneumovax) 02/19/2018,03/09/2007 SEASONAL [...] Miscellaneous Notes * Telephone Encounter - Scott Weldon MD - 04/21/2023 1:05 PM EST See other MTM encounter from today. * Telephone Encounter - Patrica Shane LPN - 04/21/2023 11:42 AM EST We have no delivery for this pt as of yet. See question about dose. * Telephone Encounter - Gabi Briggs OSA - 04/20/2023 1:09 PM EST PT was calling to see if her Ozempic had been delivered to the clinic yet. She has it delivered to clinic and hasn't heard anything yet. She also questioned if the prescription had been increased as it was discussed to increase to 2 MG. documented in this encounter Plan of Treatment Upcoming Encounters Date Type Department Care Team (Latest Contact Info) Description 04/24/2023 8:00 AM EST Office Visit General Surgery, [facility] [address] [place] [address] Kevin Wilhelm MD [address] [place] [address] 05/02/2023 9:20 AM EST Office Visit Family Practice [facility] 132 [facility] [place] [address] Tatiana Noguera MD [address] [place] [address] 05/07/2023 1:00 PM EST Telemedicine Pharmacy, [facility] 132 [place] [address] [facility] 132 [place] [address] 05/07/2023 1:30 PM EST Telemedicine Pharmacy, [facility] 132 [place] [address] [facility] [address] [place] [address] 05/19/2023 3:40 PM EST Office Visit Neurology [facility] [place] [address] [place], [place] [address] Monica Shrestha MD [address] [place] [address] 05/22/2023 11:30 AM EST Office Visit Pharmacy, [address] [address] [place] [address] [place] [facility] [place] [address] 06/04/2023 11:00 AM EST Imaging Radiology [facility] [address] [facility] [address] [facility] [place] [address] 06/22/2023 12:30 PM EST Telemedicine Psychiatry, [facility] [address] [place] [address] Rj Mai MD [address] [facility], [place] [address] 07/29/2023 12:45 PM EST Hospital Encounter ENDO [facility], Endoscopy Room [facility] [address] [place] [place] [address] Aj Pruett, DO [address] [place] [address] 07/29/2023 12:45 PM EST - 07/29/2023 1:15 PM EST Surgery ENDO [facility], Endoscopy Room [facility] [address] [place] [address] Aj Pruett, DO [address] [place], [place] [address] COLONOSCOPY FLEXIBLE PROXIMAL DIAGNOSTIC 08/19/2023 2:15 PM EDT Office Visit [facility]ology[facility]olog [facility] [place] [address] [facility] [address] [place], [place] [address] Sunil Bourgeois MD 200 [facility] [place] [address] Scheduled Procedures Name Priority Associated Diagnoses Date/Ti [...] this encounter Medical Devices Implanted Type Area Computer Systems Manager Device Identifier Shelf Expiration Date Model / Serial / Lot Envelope Tyrx Med Antibacteril - [id number] Implanted:Qty: 1 on 08/22/2022 by Rafia Small MD at OR [facility] N/A: Spine Lumbar [employer] 03/10/2023 [id number] / / [id number] documented as of this encounter Advance Directives [...] the patient have Health Care Power of Tow Bar Driver? No Code Status History Code Status Date Activated Date Inactivated Comments Full Code 01/21/2011 12:12 PM 01/22/2011 8:48 PM This order reflects the patients wishes and were consensually agreed upon. Question Answer Comments Discussion of Advance Directives occurred with: Patient Does the patient have a Living Will? No Does the patient have Health Care Power of Tow Bar Driver? No Care Teams Culinary Arts Teacher Relationship Specialty Start Date End Date Scott Weldon MD 132 [facility] [place] [address] PCP - General Family Medicine 08/03/18 documented as of this encounter
--- OUTSIDE RECORDS SUMMARY | 2023-08-12 09:25 | External Medical Summary | Summary of Care ---
Author Name Unknown Organization [facility] Address 100 [facility] [place] [address] Phone [phone] Care Team Providers Care Plasterer Stucco Name Role Phone Scott Weldon MD Primary Care Provider + Encounter Details Date Type Department Care Team (Late st Contact Info) Description 04/28/2023 Population Health External Data Unspecified Department Allergies Active Allergy Reactions Criticality Noted Date Comments Naproxen Sodium Bleeding High 11/29/2013 Pollen 12/03/2022 Seasonal Food (See Comments) Anaphylaxis High 04/20/2019 Hot peppers (oils) Kiwi Extract Anaphylaxis High 04/20/2019 documented as of this encounter (statuses as of 04/28/2023) Medications Medication Sig Dispensed Refills Start Date [...] goal of less than 8.0% ([facility]) Inject 1 mg under the skin once [...] as of this encounter (statuses as of 04/28/2023) Active Problems Problem Noted Date Diagnosed Date [...] as of this encounter (statuses as of 04/28/2023) Resolved Problems Problem Noted Date Diagnosed Date [...] as of this encounter (statuses as of 04/28/2023) Immunizations Name Administration Dates Next Due COVID-19 mRNA, LNP-s, No Pre serve, 2-Dose Series ([employer]) 11/08/2020,10/11/2020 HEP A - Hepatitis A (Adult > 18 yrs) 04/11/2011, 09/20/2010 Hepatitis B, 20+ yrs 07/05/2015 Pneumococcal Conjugate Vacci ne, 20-valent ([id number]) 03/13/2023 Pneumococcal Polysaccharide PPV23 (Pneumovax) 02/19/2018,03/09/2007 SEASONAL [...] Department Care Team (Latest Contact Info) Description 05/02/2023 9:20 AM EST Office Visit Family Practice [facility] 132 [facility] [place] [address] Tatiana Noguera MD 9 [place] [address] 05/07/2023 1:00 PM EST Telemedicine Pharmacy, [facility] 132 [facility] [address] [facility] 132 [place] [address] 05/07/2023 1:30 PM EST Telemedicine Pharmacy, [facility] 132 [facility] [place] [address] [facility] [address] 05/19/2023 3:40 PM EST Office Visit Neurology [facility] [address] [place] [address] Monica Shrestha MD [address] [place] [address] 05/22/2023 11:30 AM EST Office Visit Pharmacy, [place] [address] [facility], [place] [address] [facility] [address] [facility], [place] [address] 06/04/2023 11:00 AM EST Imaging Radiology [address] [facility] [place] [address] 06/22/2023 12:30 PM EST Telemedicine Psychiatry, [facility] 200 [facility] [place] [address] Rj Mai MD [address] [facility] [address] 07/29/2023 12:45 PM EST Hospital Encounter ENDO [facility], Endoscopy Room [facility] [address] [place] [address] Aj Pruett, DO [address] [place] [address] 07/29/2023 12:45 PM EST - 07/29/2023 1:15 PM EST Surgery ENDO [facility], Endoscopy Room [facility] [address] [place] [address] Aj Pruett, DO [address] [place] [address] COLONOSCOPY FLEXIBLE PROXIMAL DIAGNOSTIC 08/19/2023 2:15 PM EDT Office Visit Hematology/Oncolog y [facility] [address] [place], [place] [address] Sunil Bourgeois MD [address] [place] [address] Scheduled Procedures Name Priority Associated Diagnoses Date/Ti [...] this encounter Medical Devices Implanted Type Area Stummel Selector Device Identifier Shelf Expiration Date Model / Serial / Lot Envelope Tyrx Med Antibacteril - [id number] Implanted:Qty: 1 on 08/22/2022 by Rafia Small MD at OR [facility] N/A: Spine Lumbar [employer] 03/10/2023 [id number] / / [id number] documented as of this encounter Advance Directives [...] the patient have Health Care Power of Hospice Executive Director? No Code Status History Code Status Date Activated Date Inactivated Comments Full Code 01/21/2011 12:12 PM 01/22/2011 8:48 PM This order reflects the patients wishes and were consensually agreed upon. Question Answer Comments Discussion of Advance Directives occurred with: Patient Does the patient have a Living Will? No Does the patient have Health Care Power of Hospice Executive Director? No Care Teams Plasterer Stucco Relationship Specialty Start Date End Date Scott Weldon MD 132 [facility] [place] [address] PCP - General Family Medicine 08/03/18 documented as of this encounter
--- OUTSIDE RECORDS SUMMARY | 2023-08-12 09:26 | External Medical Summary | Summary of Care ---
Author Name Unknown Organization [facility] Address [address] [place] [address] Phone [phone] Care Team Providers Care Skirt Panel Assembler Name Role Phone Scott Weldon MD Primary Care Provider + Encounter Details Date Type Department Care Team (Late st Contact Info) Description 04/13/2023 1:00 PM EST Telemedicine Psychiatry, [address] [address] Rj Mai MD [address] [place] [address] No Show for psych appt* Allergies Active Allergy Reactions Criticality Noted Date Comments Naproxen Sodium Bleeding High 11/29/2013 Pollen 12/03/2022 Seasonal Food (See Comments) Anaphylaxis High 04/20/2019 Hot peppers (oils) Kiwi Extract Anaphylaxis High 04/20/2019 documented as of this encounter (statuses as of 04/13/2023) Medications Medication Sig Dispensed Refills Start Date [...] Each 5 8 Active Insulin Infusion Pump ([employer] 630G INSULIN PUMP) KITIndications:Type 2 diabetes mellitus with hemoglobin A1c goal of less than 8.0% (HCC) Use as directed. 0 8 Active Metoclopramide HCl 5 MG Oral Tablet (Reglan) Take by mouth 1 Tablet three times a day before meals . If needed for nausea 30 Tablet 0 2 Active metFORMIN HCl 1000 MG Oral Tablet (Glucophage)Indicati ons:DM type 2, not at goal (HCC) TAKE 1 TABLET BY MOUTH 2 TIMES A DAY WITH MORNING AND EVENING MEALS 180 Tablet 3 3 Active CPAP every night at bedtime. 0 Active Losartan Potassium 25 MG Oral Tablet (Cozaar)Indications: HTN, goal below 130/80 Take 1 Tablet by mouth at bedtime. 90 Tablet 2 3 Active Glucagon Emergency 1 MG Injection Kit [...] EVERY DAY 90 Tablet 3 3 Active Meclizine HCl 25 MG Oral Tablet (Antivert)Indication s:Vertigo Take 1 Tablet by mouth 3 times a day as needed for Dizziness. 30 Tablet 1 3 Active Pregabalin 100 MG Oral Capsule (Lyrica)Indications: Bilateral low back pain with sciatica, sciatica laterality unspecified, unspecified chronicity Take 1 Capsule by mouth in the morning and 1 Capsule at noon and 1 Capsule before bedtime. 270 Capsule 3 3 Active Furosemide 40 MG Oral Tablet (Lasix)Indications:O ther ascites,Cirrhosis of liver with ascites, unspecified hepatic cirrhosis type,Edema, unspecified type TAKE 1 TABLET BY MOUTH EVERY DAY IN THE MORNING 90 Tablet 1 3 Active Escitalopram Oxalate 20 MG Oral [...] suspected opioid overdose. Seek immediate medical attention. [email or web address] 1 Each 3 3 Active Spironolactone 50 MG Oral Tablet (Aldactone)Indicatio ns:Liver cirrhosis secondary to nonalcoholic steatohepatitis (MENDEZ) (HCC),Obesity, Class III, BMI 40-49.9 (morbid obesity) (HCC),Type 2 diabetes mellitus with hemoglobin A1c goal of less than 8.0% (HCC),HTN, goal below 130/80,Dyslipidemia, goal LDL below 100,Other ascites,Peripheral edema TAKE 1 TABLET BY MOUTH EVERY DAY IN THE MORNING 90 Tablet 1 3 Active Potassium Chloride ER 10 MEQ [...] A DAY 180 Capsule 1 3 Active Ondansetron HCl 4 MG Oral Tablet Take 1 Tablet by mouth every 8 hours as needed for Nausea. 20 Tablet 0 3 Active Buprenorphine 5 MCG/HR Transdermal [...] FOR ALLERGIES. 90 Tablet 1 3 Active documented as of this encounter (statuses as of 04/13/2023) Active Problems Problem Noted Date Diagnosed Date [...] as of this encounter (statuses as of 04/13/2023) Resolved Problems Problem Noted Date Diagnosed Date [...] Overview: Per Obesity Taxonomy Coronary atherosclerosis of [place] coronary artery 09/15/2008 10/03/2008 Malaise and fatigue [...] as of this encounter (statuses as of 04/13/2023) Immunizations Name Administration Dates Next Due COVID-19 mRNA, LNP-s, No Pre serve, 2-Dose Series (Lucidux) 11/08/2020,10/11/2020 HEP A - Hepatitis A (Adult > 18 yrs) 04/11/2011, 09/20/2010 Hepatitis B, 20+ yrs 07/05/2015 Pneumococcal Conjugate Vacci ne, 20-valent ([id number]) 03/13/2023 Pneumococcal Polysaccharide PPV23 (Pneumovax) 02/19/2018,03/09/2007 SEASONAL [...] Progress Notes * Rj Mai MD - 04/13/2023 1:22 PM EST Patient failed to keep appointment. documented in this encounter Plan of Treatment Upcoming Encounters Date Type Department Care Team (Latest Contact Info) Description 04/24/2023 8:00 AM EST Office Visit General Surgery, [facility] [address] [place] [address] Kevin Wilhelm MD [address] [place] [address] 05/07/2023 1:00 PM EST Telemedicine Pharmacy, [facility] 132 [facility] [place] [address] [facility] [address] [place] [address] 05/07/2023 1:30 PM EST Telemedicine Pharmacy, [facility] [address] [place] [address] [facility] [address] [place] [address] 05/19/2023 3:40 PM EST Office Visit Neurology [place] [place] [address] [place], [place] [address] Monica Shrestha MD [address] [place] [address] 05/22/2023 11:30 AM EST Office Visit [facility] [address] [facility], [place] [address] [facility] [address] [facility], [place] [address] 06/04/2023 11:00 AM EST Imaging Radiology [address] [place] [address] 07/29/2023 12:45 PM EST Hospital Encounter ENDO [facility], Endoscopy Room [facility] [address] [place] [address] Aj Pruett, DO [address] [place] [address] 07/29/2023 12:45 PM EST - 07/29/2023 1:15 PM EST Surgery ENDO [facility], Endoscopy Room [facility] [address] [place] [address] Aj Pruett, DO [address] [place] [address] COLONOSCOPY FLEXIBLE PROXIMAL DIAGNOSTIC 08/19/2023 2:15 PM EDT Office Visit Hematology/Oncolog y [facility] [address] [place], [place] [address] Sunil Bourgeois MD [address] [place] [address] Scheduled Procedures Name Priority Associated Diagnoses Date/Ti [...] this encounter Medical Devices Implanted Type Area Cork Insulator Device Identifier Shelf Expiration Date Model / Serial / Lot Envelope Tyrx Med Antibacteril - [id number] Implanted:Qty: 1 on 08/22/2022 by Rafia Small MD at OR [facility] N/A: Spine Lumbar [employer] 03/10/2023 [id number] / / [id number] documented as of this encounter Visit Diagnoses [...] the patient have Health Care Power of First Officer And Flight Instructor? No Code Status History Code Status Date Activated Date Inactivated Comments Full Code 01/21/2011 12:12 PM 01/22/2011 8:48 PM This order reflects the patients wishes and were consensually agreed upon. Question Answer Comments Discussion of Advance Directives occurred with: Patient Does the patient have a Living Will? No Does the patient have Health Care Power of First Officer And Flight Instructor? No Care Teams Skirt Panel Assembler Relationship Specialty Start Date End Date Scott Weldon MD 132 [facility] [place] [address] PCP - General Family Medicine 08/03/18 documented as of this encounter
--- OUTSIDE RECORDS SUMMARY | 2023-08-12 09:26 | External Medical Summary | Summary of Care ---
Author Name Unknown Organization [facility] Address [address] [facility] [place] [address] Phone [phone] Care Team Providers Care Foundation Relations Manager Name Role Phone Scott Montoya MD Primary Care Provider + Reason for Visit * Reason Comments eRx-Medication Refill Encounter Details Date Type Department Care Team (Late st Contact Info) Description 04/12/2023 Refill Family Practice [facility] 132 [facility] [place] [address] Scott Montoya MD 132 [facility] [place] [address] Allergic rhinitis Allergies Active Allergy Reactions Criticality Noted Date [...] 5 06/15/19 18 Active Insulin Infusion Pump ([email or web address].net 630G INSULIN PUMP) KITIndications:Type 2 diabetes mellitus with hemoglobin A1c goal of less than 8.0% (HCC) Use as directed. 0 07/30/19 18 Active Metoclopramide HCl 5 MG Oral Tablet (Reglan) Take by mouth 1 Tablet three times a day before meals . If needed for nausea 30 Tablet 0 09/14/19 22 Active metFORMIN HCl 1000 MG Oral Tablet [...] at bedtime. 90 Tablet 2 09/03/19 23 Active Glucagon Emergency 1 MG Injection Kit [...] SUBCUTANEOUSLY ONCE DAILY, VIA PUMP 90 mL 09/20/19 Active Magnesium Oxide 400 (240 Mg) MG Oral Tablet (Mag-Ox)Indications :Hypomagnesemia TAKE 1 TABLET BY MOUTH EVERY DAY 90 Tablet 10/06/19 Active Meclizine HCl 25 MG Oral Tablet (Antivert)Indicatio ns:Vertigo Take 1 Tablet by mouth 3 times a day as needed for Dizziness. 30 Tablet 1 10/17/19 Active Pregabalin 100 MG Oral Capsule (Lyrica)Indications :Bilateral low back pain with sciatica, sciatica laterality unspecified, unspecified chronicity Take 1 Capsule by mouth in the morning and 1 Capsule at noon and 1 Capsule before bedtime. 270 Capsule 10/17/19 Active Furosemide 40 MG Oral Tablet (Lasix)Indications: Other ascites,Cirrhosis of liver with ascites, unspecified hepatic cirrhosis type,Edema, unspecified type TAKE 1 TABLET BY MOUTH EVERY DAY IN THE MORNING 90 Tablet 11/06/19 Active Escitalopram Oxalate 20 MG Oral Tablet [...] for Pain or Cramping. 180 Tablet 11/15/19 Active Naloxone HCl 4 MG/0.1ML Nasal Liquid (Narcan Nasal)Indications:C ontrolled substance agreement signed,Chronic pain syndrome Administer 1 spray into 1 nostril for suspected opioid overdose. Seek immediate medical attention. https://www.youtub e.com/watch?v=v26c Rls9QyX 1 Each 11/28/19 23 Active Spironolactone 50 MG Oral Tablet (Aldactone)Indicati ons:Liver cirrhosis secondary to nonalcoholic steatohepatitis (MENDEZ) (HCC),Obesity, Class III, BMI 40-49.9 (morbid obesity) (HCC),Type 2 diabetes mellitus with hemoglobin A1c goal of less than 8.0% (HCC),HTN, goal below 130/80,Dyslipidemia , goal LDL below 100,Other ascites,Peripheral edema TAKE 1 TABLET BY MOUTH EVERY DAY IN THE MORNING 90 Tablet 1 12/05/19 23 Active Potassium Chloride ER 10 MEQ [...] DAY 180 Capsule 1 03/05/20 23 Active Ondansetron HCl 4 MG Oral Tablet Take 1 Tablet by mouth every 8 hours as needed for Nausea. 20 Tablet 0 03/24/20 23 Active Buprenorphine 5 MCG/HR Transdermal Patch Weekly (Butheidys) Place 1 Patch topically on the skin once a week. 4 Patch 0 04/07/20 23 Active Eszopiclone 1 MG Oral Tablet [...] ALLERGIES. 90 Tablet 1 04/13/20 23 Active Loratadine 10 MG Oral Tablet (Claritin)Indicatio ns:Allergic rhinitis Take 1 Tablet by mouth in the morning. For allergies.. 90 Tablet 1 10/17/19 23 023 Discontinued documented as of [...] Overview: Per Obesity Taxonomy Coronary atherosclerosis of [place] coronary artery 09/15/2008 10/03/2008 Malaise and fatigue [...] yrs 07/05/2015 Pneumococcal Conjugate Vacci ne, 20-valent ([id number]) 03/13/2023 Pneumococcal Polysaccharide PPV23 (Pneumovax) 02/19/2018,03/09/2007 SEASONAL [...] Miscellaneous Notes * Telephone Encounter - [facility] - 04/13/2023 11:09 AM ESTSigned Prescriptions: Disp Refills Loratadine 10 MG Oral Tablet (Claritin) 90 Tab*1 Sig: TAKE 1 TABLET BY MOUTH IN THE MORNING FOR ALLERGIES.Authorizing Provider: SCOTT MONTOYA User: FITO HILLMAN * Telephone Encounter - [facility] - 04/13/2023 11:07 AM EST Pending Prescriptions: Disp Refills Loratadine 10 MG Oral Tablet (Claritin) [*90 Tab*1 Sig: TAKE 1 TABLET BY MOUTH IN THE MORNING FOR ALLERGIES. Last Visit: 03/13/2023 (in office), 09/08/2022 (telemedicine) Next Visit: Visit date not found If no future appointments scheduled, and last appointment is greater than a year ago, please schedule patient for a follow-up appointment Last date the medication was ordered: 10/16/22 Pharmacy: [id number] [address] [facility] Is this request for a controlled substance? No Urine Drug Screen: Results for orders placed [...] Department Care Team (Latest Contact Info) Description 04/13/2023 1:00 PM EST Telemedicine Psychiatry, [facility] 200 [facility] [place] [address] Rj Mai MD [address] [place] [address] 04/24/2023 8:00 AM EST Office Visit General Surgery, [facility] 132 [place] [address] Kevin Wilhelm MD 132 [place] [address] 05/07/2023 1:00 PM EST Telemedicine Pharmacy, [facility] 132 [place] [address] [facility] 132 [place] [address] 05/07/2023 1:30 PM EST Telemedicine Pharmacy, [facility] 132 [place] [address] [facility] 132 [place] [address] 05/19/2023 3:40 PM EST Office Visit Neurology [facility] [address] [place] [address] Monica Shrestha MD [address] [place] [address] 05/22/2023 11:30 AM EST Office Visit Pharmacy, [place] [address] [facility], [place] [address] [place], [facility] [address] [facility], [place] [address] 06/04/2023 11:00 AM EST Imaging Radiology [address], [place] [address] [place] [address] 07/29/2023 12:45 PM EST Hospital Encounter ENDO O[facility], Endoscopy Room [facility] [address] [place] [address] Aj Pruett, DO [address] [place] [address] 07/29/2023 12:45 PM EST - 07/29/2023 1:15 PM EST Surgery ENDO [facility], Endoscopy Room [facility] [address] [place] [address] Aj Pruett, DO [address] [place] [address] COLONOSCOPY FLEXIBLE PROXIMAL DIAGNOSTIC 08/19/2023 2:15 PM EDT Office [facility] [address] [place], [place] [address] Sunil Bourgeois MD [address] [place], [place] [address] Scheduled Procedures Name Priority Associated Diagnoses Date/Ti [...] this encounter Medical Devices Implanted Type Area Physical Education Aide Device Identifier Shelf Expiration Date Model / Serial / Lot Envelope Tyrx Med Antibacteril - [id number] Implanted:Qty: 1 on 08/22/2022 by Rafia Small MD at OR [facility] N/A: Spine Lumbar [employer] 03/10/2023 [id number] / / [id number] documented as of this encounter Visit Diagnoses Diagnosis Allergic rhinitis Allergic rhinitis, cause unspecified Screen for colon cancer Special screening for [...] the patient have Health Care Power of Hogshead Hooper? No Code Status History Code Status Date Activated Date Inactivated Comments Full Code 01/21/2011 12:12 PM 01/22/2011 8:48 PM This order reflects the patients wishes and were consensually agreed upon. Question Answer Comments Discussion of Advance Directives occurred with: Patient Does the patient have a Living Will? No Does the patient have Health Care Power of Hogshead Hooper? No Care Teams Foundation Relations Manager Relationship Specialty Start Date End Date Scott Montoya MD 132 [facility] [place] [address] PCP - General Family Medicine 08/03/18 documented as of this encounter
--- OUTSIDE RECORDS SUMMARY | 2023-08-12 09:26 | External Medical Summary | Summary of Care ---
Author Name Unknown Organization [facility] Address [address] [facility] [address] Phone [phone] Care Team Providers Care Radiator Cleaner Name Role Phone Scott Montoya MD Primary Care Provider + Reason for Visit * Reason Onset Date Comments Medication Refill 04/14/2023 Encounter Details Date Type Department Care Team (Late st Contact Info) Description 04/14/[address] [facility] [address] [place] [address] Scott Montoya MD [address] [place] [address] Vertigo Allergies Active Allergy Reactions Criticality Noted Date Comments Naproxen Sodium Bleeding High 11/29/2013 Pollen 12/03/2022 Seasonal Food (See Comments) Anaphylaxis High 04/20/2019 Hot peppers (oils) Kiwi Extract Anaphylaxis High 04/20/2019 documented as of this encounter (statuses as of 04/15/2023) Medications Medication Sig Dispensed Refills Start Date [...] Dosing Unit 3 6 Active Glucose Blood (Colored Solar CONTOUR NEXT TEST) STRP Use to test [...] overdose. Seek immediate medical attention. https://www.youtub [email or web address]/watch?v=v26c Mbi3ChA 1 Each 3 3 Active Spironolactone 50 [...] for Dizziness. 30 Tablet 1 3 Active Metoclopramide HCl 5 MG Oral Tablet (Reglan) Take by mouth 1 Tablet three times a day before meals . If needed for nausea 30 Tablet 0 2 04/14/20 23 Discontinu ed(Refill) Meclizine HCl 25 MG Oral Tablet (Antivert)Indicatio ns:Vertigo Take 1 Tablet by mouth 3 times a day as needed for Dizziness. 30 Tablet 1 3 04/14/20 23 Discontinu ed(Refill) documented as of this encounter (statuses as of 04/15/2023) Active Problems Problem Noted Date Diagnosed Date [...] as of this encounter (statuses as of 04/15/2023) Resolved Problems Problem Noted Date Diagnosed Date [...] Overview: Per Obesity Taxonomy Coronary atherosclerosis of [place] coronary artery 09/15/2008 10/03/2008 Malaise and fatigue [...] as of this encounter (statuses as of 04/15/2023) Immunizations Name Administration Dates Next Due COVID-19 mRNA, LNP-s, No Pre serve, 2-Dose Series ([employer]) 11/08/2020,10/11/2020 HEP A - Hepatitis A (Adult > 18 yrs) 04/11/2011, 09/20/2010 Hepatitis B, 20+ yrs 07/05/2015 Pneumococcal Conjugate Vacci ne, 20-valent ([id number]) 03/13/2023 Pneumococcal Polysaccharide PPV23 (Pneumovax) 02/19/2018,03/09/2007 SEASONAL [...] Telephone Encounter - Scott Montoya MD - 04/15/2023 10:55 PM EST Signed Prescriptions: Disp Refills Metoclopramide HCl 5 MG Oral Tablet (Darby*30 Tab*0 Sig: Take 1 Tablet by mouth in the morning and 1 Tablet at noon and 1 Tablet in the evening. Take before meals. If needed for nausea. Authorizing Provider: SCOTT MONTOYA Meclizine HCl 25 MG Oral Tablet (Antivert) 30 Tab*1 Sig: Take 1 Tablet by mouth 3 times a day a s needed for Dizziness. Authorizing Provider: SCOTT MONTOYA * Telephone Encounter - Syed Borja, [facility] - 04/15/2023 10:23 AM EST Pending Prescriptions: Disp Refills Metoclopramide HCl 5 MG Oral Tablet (Darby*30 Tab*0 Sig: Take 1 Tablet by mouth in the morning and 1 Tablet at noon and 1 Tablet in the evening. Take before meals. If needed for nausea. Meclizine HCl 25 MG Oral Tablet (Antivert) 30 Tab*1 Sig: Take 1 Tablet by mouth 3 times a day as needed for Dizziness. ---- * Telephone Encounter - Syed Borja [facility] - 04/15/2023 10:23 AM EST Pending Prescriptions: Disp Refills Metoclopramide HCl 5 MG Oral Tablet (Darby*30 Tab*0 Sig: Take 1 Tablet by mouth in the morning and 1 Tablet at noon and 1 Tablet in the evening. Take before meals. If needed for nausea. Meclizine HCl 25 MG Oral Tablet (Antivert) 30 Tab*1 Sig: Take 1 Tablet by mouth 3 times a day as needed for Dizziness. 03/13/2023 (in office), 09/08/2022 (telemedicine) Visit date not found If no future appointments scheduled, and last appointment is greater than a year ago, please schedule patient for a follow-up appointment Last date the medication was ordered: 09/13/21 Pharmacy: [id number] [address] [facility] Is this request for a controlled substance?No Patient Phone Numbers Labs: Lab Results Component [...] 8:00 AM EST Office Visit General Surgery, [facility] 132 [facility] [place] [address] Kevin Wilhelm MD 132 [facility] [place] [address] 05/07/2023 1:00 PM EST Telemedicine Pharmacy, [facility] 132 [facility] [place] [address] [facility] [address] [facility] [place] [address] 05/07/2023 1:30 PM EST Telemedicine Pharmacy, [facility] [address] [facility] [place] [address] [facility] 132 [facility] [place] [address] 05/19/2023 3:40 PM EST Office Visit Neurology [facility] [address] [place] [address] Monica Shrestha MD [address] [place] [address] 05/22/2023 11:30 AM EST Office Visit Pharmacy, [place] [address] [place] [facility] [address] [facility] [address] [place] [facility] [place] [address] 06/04/2023 11:00 AM EST Imaging Radiology [facility] [facility] [place] [address] [facility] [address] 06/22/2023 12:30 PM EST Telemedicine Psychiatry, [facility] [address] [place] [address] Rj Mai MD [address] [place] [address] 07/29/2023 12:45 PM EST Hospital Encounter ENDO OSSC, Endoscopy Room [facility] [address] [place], [place] [address] Aj Pruett, DO [address] [place] [address] 07/29/2023 12:45 PM EST - 07/29/2023 1:15 PM EST Surgery ENDO [facility], Endoscopy Room [facility] [address] [place] [address] jA Pruett, DO [address] [place] [address] COLONOSCOPY FLEXIBLE PROXIMAL DIAGNOSTIC 08/19/2023 2:15 PM EDT Office [facility] [place] [address] [place] [address] Sunil Bourgeois MD [address] [place] [address] Scheduled Procedures Name Priority Associated Diagnoses Date/Ti [...] this encounter Medical Devices Implanted Type Area Patternator Device Identifier Shelf Expiration Date Model / Serial / Lot Envelope Tyrx Med Antibacteril - [id number] Implanted:Qty: 1 on 08/22/2022 by Rafia Small MD at OR [facility] N/A: Spine Lumbar [employer] 03/10/2023 [id number] / / [id number] documented as of this encounter Visit Diagnoses Diagnosis Vertigo Dizziness and giddiness Screen for colon cancer Special screening for [...] the patient have Health Care Power of Concrete Float Maker? No Code Status History Code Status Date Activated Date Inactivated Comments Full Code 01/21/2011 12:12 PM 01/22/2011 8:48 PM This order reflects the patients wishes and were consensually agreed upon. Question Answer Comments Discussion of Advance Directives occurred with: Patient Does the patient have a Living Will? No Does the patient have Health Care Power of Concrete Float Maker? No Care Teams Radiator Cleaner Relationship Specialty Start Date End Date Scott Montoya MD [address] [place] [address] PCP - General Family Medicine 08/03/18 documented as of this encounter
--- OUTSIDE RECORDS SUMMARY | 2023-08-12 09:27 | External Medical Summary | Summary of Care ---
Author Name Unknown Organization [facility] Address [address] [place] [address] Phone [phone] Care Team Providers Care Management Accountant Name Role Phone Scott Weldon MD Primary Care Provider + Reason for Visit * Reason Onset Date Comments Medication Refill 04/06/2023 Encounter Details Date Type Department Care Team (Late st Contact Info) Description 04/06/2023 Refill Psychiatry, [address] [address] Kandace Avina MD [address] [place] [address] Allergies Active Allergy Reactions Criticality Noted Date Comments Naproxen Sodium Bleeding High 11/29/2013 Pollen 12/03/2022 Seasonal Food (See Comments) Anaphylaxis High 04/20/2019 Hot peppers (oils) Kiwi Extract Anaphylaxis High 04/20/2019 documented as of this encounter (statuses as of 04/06/2023) Medications Medication Sig Dispensed Refills Start Date [...] Each 5 8 Active Insulin Infusion Pump (MINIMWanamaker 630G INSULIN PUMP) KITIndications:Type 2 diabetes mellitus with hemoglobin A1c goal of less than 8.0% (HCC) Use as directed. 0 8 Active Metoclopramide HCl 5 MG Oral Tablet (Reglan) Take by mouth 1 Tablet three times a day before meals . If needed for nausea 30 Tablet 0 2 Active Atenolol 100 MG Oral Tablet (Tenormin)Indicatio ns:Tachycardia TAKE 1 TABLET BY MOUTH TWICE A DAY 180 Tablet 3 2 Active metFORMIN HCl 1000 MG Oral [...] goal of less than 8.0% ([facility]),DM type 2, not at goal ([facility]) INJECT UP TO 275 UNITS SUBCUTANEOUSLY ONCE DAILY, VIA PUMP 90 mL 3 3 Active Magnesium Oxide 400 (240 Mg) MG Oral Tablet (Mag-Ox)Indications :Hypomagnesemia TAKE 1 TABLET BY MOUTH EVERY DAY 90 Tablet 3 3 Active Loratadine 10 MG Oral Tablet (Claritin)Indicatio ns:Allergic rhinitis Take 1 Tablet by mouth in the morning. For allergies.. 90 Tablet 1 3 Active Additional Information Patient taking differently:10 mg Oral Daily(AM),As needed, Reported on 11/27/2022 Meclizine HCl 25 MG Oral Tablet (Antivert)Indicatio [...] goal of less than 8.0% ([facility]) Inject 1 mg under the skin once [...] suspected opioid overdose. Seek immediate medical attention. https://www.EuroCapital BITEX e.com/watch?v=v26c Mgp7MkU 1 Each 3 3 Active Spironolactone 50 [...] for anxiety 120 Tablet 3 3 Active Albuterol Sulfate HFA 108 (90 Base) MCG/ACT Inhalation Aerosol Solution INHALE 2 PUFFS BY MOUTH EVERY 6 HOURS NEEDED FOR SHORTNESS OF BREATH 18 g 1 3 Active Baclofen 10 MG Oral [...] a week. 4 Patch 0 3 Active Ondansetron HCl 4 MG Oral Tablet Take 1 Tablet by mouth every 8 hours as needed for Nausea. 20 Tablet 0 3 Active Eszopiclone 1 MG Oral Tablet (Lunesta)Indication s:sleep Take 1 Tablet by mouth at bedtime. 30 Tablet 2 3 Active Eszopiclone 1 MG Oral Tablet (Lunesta)Indication s:sleep Take 1 Tablet by mouth at bedtime. 30 Tablet 2 3 04/06/20 23 Discontinu ed(Refill) documented as of this encounter (statuses as of 04/06/2023) Active Problems Problem Noted Date Diagnosed Date [...] as of this encounter (statuses as of 04/06/2023) Resolved Problems Problem Noted Date Diagnosed Date [...] Overview: Per Obesity Taxonomy Coronary atherosclerosis of [place] coronary artery 09/15/2008 10/03/2008 Malaise and fatigue [...] as of this encounter (statuses as of 04/06/2023) Immunizations Name Administration Dates Next Due COVID-19 mRNA, LNP-s, No Pre serve, 2-Dose Series (Pfizer) 11/08/2020,10/11/2020 HEP A - Hepatitis A (Adult > 18 yrs) 04/11/2011, 09/20/2010 Hepatitis B, 20+ yrs 07/05/2015 Pneumococcal Conjugate Vacci ne, 20-valent ([id number]) 03/13/2023 Pneumococcal Polysaccharide PPV23 (Pneumovax) 02/19/2018,03/09/2007 SEASONAL [...] Telephone Encounter - Kandace Avina MD - 04/06/2023 2:54 PM EDT Signed Prescriptions: Disp Refills Eszopiclone 1 MG Oral Tablet (Lunesta) 30 Tab*2 Sig: Take 1 Tablet by mouth at bedtime.Authorizing Provider: KANDACE AVINA * Telephone Encounter - Santa Martin LPN - 04/06/2023 1:03 PM EDTPending Prescriptions: Disp Refills Eszopiclone 1 MG Oral Tablet (Lunesta) 30 Tab*2 Sig: Take 1 Tablet by mouth at bedtime. * Telephone Encounter - Santa Martin LPN - 04/06/2023 1:02 PM EDT Refill request from patient (Cristal) for Lunesta 1mg. Medication last filled on 01/07/23 with 2 refills. Patient last seen on 02/02/23 with return appointment scheduled for 04/13/23. Patient had 0 cancelled appointments and 0 NO SHOW appointments. documented in this encounter Plan of Treatment Upcoming Encounters Date Type Department Care Team (Latest Contact Info) Description 04/13/2023 1:00 PM EST Telemedicine Psychiatry, [address] [place] [address] Kandace Avina MD [address] [place] [address] 04/16/2023 11:00 AM EST Telemedicine Pharmacy, [facility] [address] [facility] 132 [facility] [place] [address] 04/16/2023 11:30 AM EST Telemedicine Pharmacy, [facility] [address] [place] [address] [facility] [place] [address] 04/24/2023 8:00 AM EST Office Visit General Surgery, [facility] 132 [facility] [place] [address] Kevin Wilhelm MD [address] [place] [address] 05/19/2023 3:40 PM EST Office Visit Neurology [facility] [place] [address] [place] [address] Monica Shrestha MD [address] [place] [address] 05/22/2023 11:30 AM EST Office Visit Pharmacy, [place] [address] [place] [facility] [address] [facility] [address] [place] [facility] [address] 06/04/2023 11:00 AM EST Imaging Radiology [address] [place] [address] 07/29/2023 12:45 PM EST Hospital Encounter ENDO [facility], Endoscopy Room [facility] [address] [place] [phone] Aj Pruett, DO [address] [place] [address] 07/29/2023 12:45 PM EST - 07/29/2023 1:15 PM EST Surgery ENDO [facility], Endoscopy Room [facility] [address] [place] [address] Aj Pruett, DO [address] [place] [address] COLONOSCOPY FLEXIBLE PROXIMAL DIAGNOSTIC 08/19/2023 2:15 PM EDT Office Visit Hematology/Oncolog y [facility] [place] [address] [place] [address] Sunil Bourgeois MD [address] [place] [address] Scheduled Procedures Name Priority Associated Diagnoses Date/Ti [...] COVID-19 Vaccine ( season) 2023 11/08/2020, 10/11/2020 Albumin/Creatinine Ratio 03/11/20232 022, 11/08/2021, 08/18/2018, Additional history exists B-12 06/11/2023 06/11/2022, 01/0 12/2020, 07/05/2019, Additional history exists HbA1c 08/19/2023 02/18/2023, 010 09/2022, 05/03/2022, Additional history exists GFR 12/04/2023 12/03/2022, 010 09/2022, 03/11/2022, Additional history exists Depression Screening 03/13/2024 03/13/2023, 10/01/2016 (Declined) Diabetic Foot Exam 03/13/2024 03/13/2023, 0 10/03/2021, 11/07/2019, Additional history exists Lipid Panel 03/11/2027 03/11/2022, [...] this encounter Medical Devices Implanted Type Area Steamer Gum Candy Device Identifier Shelf Expiration Date Model / Serial / Lot Envelope Tyrx Med Antibacteril - [id number] Implanted:Qty: 1 on 08/22/2022 by Rafia Small MD at OR [facility] N/A: Spine Lumbar [employer] 03/10/2023 [id number] / [id number] documented as of this encounter Advance Directives [...] the patient have Health Care Power of Geotechnical Operating Engineer? No Code Status History Code Status Date Activated Date Inactivated Comments Full Code 01/21/2011 12:12 PM 01/22/2011 8:48 PM This order reflects the patients wishes and were consensually agreed upon. Question Answer Comments Discussion of Advance Directives occurred with: Patient Does the patient have a Living Will? No Does the patient have Health Care Power of Geotechnical Operating Engineer? No Care Teams Management Accountant Relationship Specialty Start Date End Date Scott Weldon MD [address] [facility] [place] [address] PCP - General Family Medicine 08/03/18 documented as of this encounter
--- OUTSIDE RECORDS SUMMARY | 2023-08-12 09:27 | External Medical Summary | Summary of Care ---
Author Name Unknown Organization [facility] Address [address] [facility] [place] [address] Phone [phone] Care Team Providers Care Transportation Superintendent Name Role Phone Scott Montoya MD Primary Care Provider + Reason for Visit * Reason Onset Date Comments Medication Refill 04/06/2023 Encounter Details Date Type Department Care Team (Late st Contact Info) Description 04/06/2023 Refill Family Practice [facility] [address] [place] [address] Scott Montoya MD [address] [place] [address] Allergies Active Allergy Reactions Criticality Noted Date Comments Naproxen Sodium Bleeding High 11/29/2013 Pollen 12/03/2022 Seasonal Food (See Comments) Anaphylaxis High 04/20/2019 Hot peppers (oils) Kiwi Extract Anaphylaxis High 04/20/2019 documented as of this encounter (statuses as of 04/07/2023) Medications Medication Sig Dispensed Refills Start Date [...] A1c goal of less than 8.0% ([facility]),DM type 2, not at goal ([facility]) INJECT UP TO 275 UNITS SUBCUTANEOUSLY ONCE [...] A1c goal of less than 8.0% ([facility]) Inject 1 mg under [...] suspected opioid overdose. Seek immediate medical attention. https://[email or web address] [email or web address]?v=v26c [email or web address] 1 Each 3 3 Active Spironolactone 50 [...] at bedtime. 30 Tablet 2 3 Active Buprenorphine 5 MCG/HR Transdermal Patch Weekly (Butrans) Place 1 Patch topically on the skin once a week. 4 Patch 0 3 04/06/20 23 Discontinu ed(Refill) documented as of this encounter (statuses as of 04/07/2023) Active Problems Problem Noted Date Diagnosed Date [...] as of this encounter (statuses as of 04/07/2023) Resolved Problems Problem Noted Date Diagnosed Date [...] Overview: Per Obesity Taxonomy Coronary atherosclerosis of [place] coronary artery 09/15/2008 10/03/2008 Malaise and fatigue [...] as of this encounter (statuses as of 04/07/2023) Immunizations Name Administration Dates Next Due COVID-19 mRNA, LNP-s, No Pre serve, 2-Dose Series (Pfizer) 11/08/2020,10/11/2020 HEP A - Hepatitis A (Adult > 18 yrs) 04/11/2011, 09/20/2010 Hepatitis B, 20+ yrs 07/05/2015 Pneumococcal Conjugate Vacci ne, 20-valent ([id number]) 03/13/2023 Pneumococcal Polysaccharide PPV23 (Pneumovax) 02/19/2018,03/09/2007 SEASONAL [...] Telephone Encounter - Scott Montoya MD - 04/07/2023 3:46 PM EDTSigned Prescriptions: Disp Refills Buprenorphine 5 MCG/HR Transdermal Patch W*4 Patch0 Sig: Place 1 Patch topically on the skin once a week. Authorizing Provider: SCOTT MONTOYA * Telephone Encounter - Syed Borja [facility] - 04/07/2023 8:47 AM EDT Pending Prescriptions: Disp Refills Buprenorphine 5 MCG/HR Transdermal Patch W*4 Patch0 Sig: Place 1 Patch topically on the skin once a week. * Telephone Encounter - Syed Borja [facility] - 04/07/2023 8:46 AM EDT I have reviewed the patients controlled substance dispensing history in the Prescription Drug Monitoring Program in compliance with the [facility] regulations before prescribing a controlled substance. PDMP checked on 04/07/2023. Pending Prescriptions: Disp Refills Buprenorphine 5 MCG/HR Transdermal Patch *4 Patch0 Sig: Place 1 Patch topically on the skin once a week. Last Visit: 03/13/2023 (in office), 09/08/2022 (telemedicine) Next Visit: Visit date not found Date medication was last filled: 03/11/23 Date medication is due for refill: 04/06/23 Pharmacy: [id number] [address] [facility] Is this request for a controlled substance? Yes and Urine Drug Screen Not completed Please approve if appropriate. Thanks, Syed Borja, PharmD Clinical Pharmacist [facility] ([facility]) (formerly Telepharmacy) [phone] 04/07/2023, 8:46 AM documented in this encounter Plan of Treatment Upcoming Encounters Date Type Department Care Team (Latest Contact Info) Description 04/13/2023 1:00 PM EST Telemedicine Psychiatry, [facility] [address] [place] [address] Rj [facility] MD [address] [facility] [address] 04/24/2023 8:00 AM EST Office Visit General Surgery, [facility] [address] [facility] [place] [address] Kevin Wilhelm MD [address] [place], [place] [address] 05/07/2023 1:00 PM EST Telemedicine Pharmacy, [facility] [place] [address] [facility] [address] [facility] [place] [address] 05/07/2023 1:30 PM EST Telemedicine Pharmacy, [facility] [address] [facility] [place] [address] [facility] [address] [facility] [place] [address] 05/19/2023 3:40 PM EST Office Visit Neurology [facility] [address] [facility] [place] [address] Monica Shrestha MD [address] [facility] [address] 05/22/2023 11:30 AM EST Office Visit Pharmacy, [address] [address] [place] [address] [place] [address] 06/04/2023 11:00 AM EST Imaging Radiology [facility] [address] [facility] [place] [address] 07/29/2023 12:45 PM EST Hospital Encounter ENDO [facility], Endoscopy Room [facility] [address] [place] [id number] Aj Pruett DO [address] [place] [address] 07/29/2023 12:45 PM EST - 07/29/2023 1:15 PM EST Surgery ENDO [facility], Endoscopy Room [facility] [address] [place] [phone] Aj Pruett, [address] [place] [address] COLONOSCOPY FLEXIBLE PROXIMAL DIAGNOSTIC 08/19/2023 2:15 PM EDT Office [facility] [address] [place] [address] Sunil Bourgeois MD [address] [place] [address] Scheduled Procedures Name Priority Associated Diagnoses Date/Ti [...] (3 - 2022- season) 2023 11/08/2020, 10/11/2020 Albumin/Creatinine Ratio 03/11/20232 023, 03/11/2022, 11/08/2021, Additional history exists B-12 06/11/2023 06/11/2022, 0 12/2020, 07/05/2019, Additional history exists HbA1c 08/19/2023 02/18/2023, 0 09/2022, 05/03/2022, Additional [...] this encounter Medical Devices Implanted Type Area Swimmer Device Identifier Shelf Expiration Date Model / Serial / Lot Envelope Tyrx Med Antibacteril - [id number] Implanted:Qty: 1 on 08/22/2022 by Rafia Small MD at OR [facility] N/A: Spine Lumbar [employer] 03/10/2023 [id number] / / [id number] documented as of this encounter Advance Directives [...] the patient have Health Care Power of Dental Hygiene Instructor? No Code Status History Code Status Date Activated Date Inactivated Comments Full Code 01/21/2011 12:12 PM 01/22/2011 8:48 PM This order reflects the patients wishes and were consensually agreed upon. Question Answer Comments Discussion of Advance Directives occurred with: Patient Does the patient have a Living Will? No Does the patient have Health Care Power of Dental Hygiene Instructor? No Care Teams Transportation Superintendent Relationship Specialty Start Date End Date Scott Montoya MD [address] [place] [address] PCP - General Family Medicine 08/03/18 documented as of this encounter
--- OUTSIDE RECORDS SUMMARY | 2023-08-12 09:27 | External Medical Summary | Summary of Care ---
Author Name Unknown Organization [facility] Address [address] [facility] [place] [address] Phone [phone] Care Team Providers Care Emergency Specialist Name Role Phone Scott Weldon MD Primary Care Provider + Reason for Visit * Reason Comments Dosage Adjustment In Person (Anticoag Cl inic) Diabetes Follow-Up Insulin Pump Encounter Details Date Type Department Care Team Description 03/27/2023 Office Visit Pharmacy, [place] [address] [place] [address] [facility] [address] [place] [address] Type 2 diabetes mellitus with hemoglobin A1c goal of less than 8.0% ([facility])* Allergies Active Allergy Reactions Severity Noted Date Comments Naproxen Sodium Bleeding High 11/29/2013 Pollen 12/03/2022 Seasonal Food (See Comments) Anaphylaxis High 04/20/2019 Hot peppers (oils) Kiwi Extract Anaphylaxis High 04/20/2019 documented as of this encounter (statuses as of 03/27/2023) Medications Medication Sig Dispensed Refills Start Date End Date Status ONETOUCH ULTRASOFT LANCETS MISCIndications:DM type 2, not at goal ([facility]) check FS 6 times daily 4 Box [...] Dosing Unit 3 6 Active Glucose Blood (Gifts that Give CONTOUR NEXT TEST) STRP Use to test [...] 2 Active Atenolol 100 MG Oral Tablet (Tenormin)Indication [...] hemoglobin A1c goal of less than 8.0% ([facility]),DM type 2, not at goal ([facility]) INJECT UP TO 275 UNITS SUBCUTANEOUSLY ONCE DAILY, VIA PUMP 90 mL 3 3 Active Magnesium Oxide 400 (240 Mg) MG Oral Tablet (Mag-Ox)Indications: Hypomagnesemia TAKE 1 TABLET BY MOUTH EVERY DAY 90 Tablet 3 3 Active Loratadine 10 MG Oral Tablet (Claritin)Indication s:Allergic rhinitis Take 1 Tablet by mouth in the morning. For allergies.. 90 Tablet 1 3 Active Additional Information Patient taking differently:10 mg Oral Daily(AM),As needed, Reported on 11/27/2022 Meclizine HCl 25 MG Oral Tablet (Antivert)Indication [...] hemoglobin A1c goal of less than 8.0% ([facility]) Inject 1 mg under the skin [...] THE MORNING 90 Tablet 1 3 Active Eszopiclone 1 MG Oral Tablet (Lunesta)Indications :sleep Take 1 Tablet by mouth at bedtime. 30 Tablet 2 3 Active Potassium Chloride ER 10 MEQ [...] for Nausea. 20 Tablet 0 3 Active documented as of this encounter (statuses as of 03/27/2023) Active Problems Problem Noted Date Esophageal varices without bleeding 08/2022 Hemiplegia and hemiparesis f ollowing cerebral infarction affecting unspecified side 08/19/2021 Diabetic retinopathy of both eyes without macular edema associated with type 2 diabetes mellitus 02/21/2021 Overview: Per retinal scan 12/14/2019 History of 2019 novel coronavirus diseas e (COVID-19) 09/03/2020 Major depressive disorder, recurrent epi sode, moderate 07/10/2020 PTSD (post-traumatic stress disorder) Iron deficiency anemia 01/11/2020 Diabetes mellitus with background retino dionne 12/24/2019 Overview: 2020 telemed images, mild Encounter for venous access device care 12/23/2019 Severe obesity (BMI 35.0-39.9) with elias rbidity 11/07/2019 Diabetic polyneuropathy associated with type 2 diabetes mellitus 08/24/2019 Generalized anxiety disorder 06/09/2019 Recurrent major depressive disorder, in partial remission 06/09/2019 Left hemiplegia 10/06/2018 Liver masses 09/02/2018 Overview: More specific code in use. Thrombocytopenia 07/12/2018 Diabetic gastroparalysis 07/12/2018 Portal hypertension 07/12/2018 Encounter for care related to vascular a ccess port 01/21/2018 Overview: Acute. Gastroparesis 09/10/2017 Insulin pump [...] brain WNL Cirrhosis of liver without ascites 02/06 Chronic pain syndrome 11/28/2015 Controlled substance agreement signed Lumbago with sciatica 07/05/2015 Psychogenic nonepileptic seizure 015 Type 2 diabetes mellitus with hemoglobin A1c goal of less than 8.0% 06/22/2014 Vitamin D deficiency 03/02/2012 HTN, goal below 130/80 01/26/2012 Overview: Per HTN Protocol #27. 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 documented as of this encounter (statuses as of 03/27/2023) Resolved Problems Problem Noted Date Resolved Date Protein-calorie malnutrition 10/03/2020 Pneumonia due to COVID-19 virus 09/10/2020 02/17/2022 Diabetes mellitus with background retinopathy 03/14/2020 Kidney disease, chronic, stage III (GFR 30-59 ml /min) 11/14/2019 01/12/2020 Overview: Per CKD protocol Severe obesity (BMI 35.0-39.9) with comorbidity 11/07/2019 11/07/[address] 04/20/2019 05/26/2019 Nonintractable generalized i diopathic epilepsy without status epilepticus 03/09/2019 06/09/2019 Malignant neoplasm of liver 02/04/2019 02/07/2020 Obesity, Class III, BMI 40-49.9 (morbid obesity) 07/12/2018 12/07/2019 Overview: More specific code in use. Vertigo 02/19/2016 03/14/2023 Breast cancer screening 11/30/2015 10/07/19 19 Vaginitis 05/18/2015 05/21/2016 Vaginitis 10/18/2014 01/24/2015 Vaginitis 09/18/2014 01/24/2015 Vaginitis 05/16/2014 09/15/2014 Vaginitis 04/12/2014 09/15/2014 Vaginitis 02/02/2014 09/15/2014 Weakness 10/26/2013 09/15/2014 Bipolar disorder 08/29/2013 06/09/2019 Overview: On Seroquel for years, meds here, prior [place] Palpitations 08/29/2013 09/15/2014 Malaise and fatigue 11/07/2012 09/15/2014 Type 2 diabetes, HbA1c goal < 7% 11/04/2012 09/15/2014 Arthralgia of multiple joints 10/13/2012 Abdominal pain, generalized 09/08/201204/09 Ascites 09/08/2012 09/15/2014 Other psychological or physi eduardo stress, not elsewhere classified 08/19/2012 03/22/2013 Benign neoplasm of stomach 07/27/201209/15 Overview: fundic polyp-repeat EGD in 1 yr Reflux 07/27/2012 09/15/2014 Lymphadenitis, unspecified, except mesenteric 10/06/2018 Pain of upper abdomen 03/03/2012 03/23/2019 Vaginitis 01/23/2012 09/15/2014 Vaginitis 09/18/2011 01/23/2012 OBSTIPATION 04/11/2011 09/15/2014 Dyslipidemia, goal LDL below 70 04/11/2011 05/13/2011 Need for vaccination for viral hepatitis 011 08/19/2012 Type 2 diabetes mellitus wit h hemoglobin A1c goal of less than 7.0% 01/28/2011 03/22/2013 Overview: ICD-10 update of inactive term Abnormal results of liver function studies 01/2209/12/2019 Overview: Acute. Abdominal pain 01/21/2011 08/19/2012 OBESITY, BMI= 35.49 12/30/10 12/30/201008/06 OBSTIPATION 12/30/2010 03/22/2013 Edema 12/30/2010 09/12/2019 Overview: Acute. Steatohepatitis, non-alcoholic 08/28/2010 0 09/15/2014 OBESITY, BMI= 36.56 08/16/10 08/16/201001/06 OBESITY, BMI= 36.56 08/01/10 08/01/201001/06 Acute conjunctivitis 04/30/2010 08/19/2012 Abdominal pain, right upper quadrant 04/10/2010 01/24/2015 Cough 04/10/2010 01/23/2012 Myalgia and myositis 04/10/2010 08/19/2012 Acute URI 04/10/2010 01/23/2012 Allergic rhinitis 04/10/2010 01/24/2015 Dyslipidemia, goal LDL below 70 03/06/2010 12/30/2010 DM type 2, not at goal 03/05/2010 1 HYPERGLYCEMIA 02/26/2010 12/30/2010 Abnormal results of liver function studies 02/2612/30/2010 HTN, goal below 130/80 02/25/2010 2 Overview: Per HTN Protocol #27. Obesity, Class II, BMI 35-39.9, isolated (see ac tual BMI) 09/03/2009 02/25/2010 Overview: Per Obesity Taxonomy Acute bronchitis, antibiotics not indicated 09/200902/25/2010 Tietze's disease 08/02/2009 02/25/2010 Fever 03/19/2009 02/25/2010 Cough 03/19/2009 02/25/2010 Unspecified viral infection, in conditions classified elsewhere and of unspecified site 03/19/2009 02/25/2010 Abnormal weight gain 02/06/2009 01/23/2012 Bipolar I disorder, most recent episode depresse d, moderate 12/18/2008 08/19/2012 Tachycardia 11/01/2008 08/19/2012 ACUTE STRESS 11/01/2008 08/19/2012 Migraine variant, intractable 09/26/2008 Backache 09/26/2008 08/19/2012 Overweight (BMI 25.0-29.9) 09/26/200809/03 Overview: Per Obesity Taxonomy Coronary atherosclerosis of [place] coronary abdias ry 09/15/2008 10/03/2008 Malaise and fatigue 09/15/2008 08/19/2012 Dyslipidemia, goal to be determined 09/15/2008 02/25/2010 Chest pain 09/15/2008 08/19/2012 HTN, goal below 140/90 09/15/2008 0 Migraine with aura, intractable 08/24/2008 08/19/2012 Family history of ischemic heart disease 009 08/19/2012 Acute URI 05/30/2008 06/30/2008 Cough 05/30/2008 06/30/2008 Syncope and collapse 05/12/2008 02/25/2010 ADVANCE DIRECTIVE INFORMATION 02/28/2005 Overview: no advance directive- info given Historical. ADV EFF MED-BIOL SUB NOS 07/02/2001 004 Major depressive disorder 07/02/20012008 Overview: ICD-10 update of inactive term Insomnia 07/02/2001 07/05/2015 Overview: ICD-10 update of inactive term ANXIETY STATE NOS 07/02/2001 09/15/2014 Headache 07/02/2001 09/15/2014 Overview: ICD-10 update of inactive term ACUTE CYSTITIS 01/06/2001 10/02/2003 Candidal vulvovaginitis 01/06/2001 10/02/19 04 Constipation 09/02/2000 08/29/2013 Overview: ICD-10 update of inactive term ACUTE BRONCHITIS 07/04/1999 10/02/2003 Dyslipidemia, goal LDL below 100 03/06/2010 ASCVD 01/24/2015 Other specified disorders of liver 12/30/2010 Overview: fatty liver Kidney stone 09/15/2014 Overview: x 2 documented as of this encounter (statuses as of 03/27/2023) Immunizations Name Administration Dates Next Due COVID-19 mRNA, LNP-s, No Pre serve, 2-Dose Series (Pfizer) 11/08/2020,10/11/2020 HEP A - Hepatitis A (Adult > 18 yrs) 04/11/2011, 09/20/2010 Hepatitis B, 20+ yrs 07/05/2015 Pneumococcal Conjugate Vacci ne, 20-valent ([id number]) 03/13/2023 Pneumococcal Polysaccharide PPV23 (Pneumovax) 02/19/2018,03/09/2007 SEASONAL [...] drink = 0.6 oz pur e alcohol) Food Insecurity Answer Date Recorded Within the past 12 months, y ou worried that your food would run out before you got money to buy more. Never true 03/13/2023 Within the past 12 months, t he food you bought just didn't last and you didn't have money to get more. Never true 03/13/2023 Sex Assigned at Date Recorded Female 05/08/2020 7:[address] Job Start Date Occupation Industry Not on [...] as of this encounter Progress Notes * Danielle Anderson, [facility] - 03/27/2023 10:11 AM EDT Images from the original note were not included. Medication Therapy Disease Management [facility] - Diabetes Management Progress Note Carmen Tyson, identified by name and date of , is a 52 year old female being seen for diabetes management/education. Patient presents for return diabetic visit. DIABETES: Current diabetic medications: Metformin 1000mg twice a day INC Ozempic 1 mg once weekly eGFR 60 mL/min 06/11/22 MedMobileDataforceG - Fluidinfo ([id number]) Infusion Set: Quick Set Insulin: Novolin R Basal Rate (both segments decreased) 12a-8a 4.40 u/hr 8a-12a 6.80 u/hr Bolus: hardly using (was 15 units for breakfast and lunch/ 22 units for supper- 10 units for chocolate milk snack before bed) Carb ratio 1:3 Bolus wizard: hardly using ISF: 1:5 Blood Glucose Goals: 100-140 Active Insulin Time: 3 hours Medication Injection Site: Abdomen Lifestyle: Diet: unchanged Glucose Review/SMBG: Readings obtained from patient device Hypoglycemia: Does your blood sugar go below 70 mg/dL? Yes, see above Hyperglycemia symptoms present: none Recent Labs Units [...] is taking moderate or high intensity statin: yes HEALTH MAINTENANCE REVIEW: Health Maintenance Due Topic Date Due Cervical Cancer Screening 04/12/2018 Mammogram 05/07/2019 COLONOSCOPY-EVERY 5 YRS AGES 18-100 06/27/2020 Zoster Vaccines (1 of 2) Never done DIABETES-EYE EXAM 01/16/2023 COVID-19 Vaccine (2022- season) 2023 Albumin/Creatinine Ratio 03/11/2023 ASSESSMENT & PLAN: ICD-10-CM 1. Type 2 diabetes mellitus with hemoglobin A1c goal of less than 8.0% ([facility]) E11.9 Considerations: - activity limited by chronic low back pain - obtaining ozempic and novolin R via PAP --> reapplied 03/27/23 - pt agreeable to jardiance in future BG Readings - Blood sugars controlled. Having issues with lows. A1c shows great control. Patient notes that she purposefully will eat to keep her sugars up, even if she is not hungry. Patient agreeable to adjust medications as noted below. Will increase ozempic and greatly decrease basal settings in pump. Discussed jardiance therapy withpatient and she is agreeable to start likely at next visit considering the changes we are making today to her pump. Patient was instructed to continue ozempic 1 mg weekly until she physically has ozempic 2 mg pens, and then she may double up on ozempic 1 mg pens before going to ozempic 2 mg. Basal settings decreased as glucose is falling overnight and between meals. ICR/fixed dose continued as glucose is stable postprandially. ISF weakened as glucose is overcorrecting below goal range. Patient to SMBG at least 4 times daily, before each meal and at bedtime. Patient aware to contact clinic if any hypoglycemia before next visit. Reviewed rule of 15s. Reviewed appropriate management of hyperglycemia as noted in pump start documentation. MEDICATION CHANGES: Yes, see below Diabetic Medications: Metformin 1000mg twice a day INC Ozempic 2 mg once weekly eGFR 65 mL/min 12/03/22 Medtronic 630G - Fluidinfo ([id number]) Infusion Set: Quick Set Insulin: Novolin R Basal Rate (both segments decreased) 12a-8a 3.8 u/hr 8a-12a 6.00 u/hr Bolus: hardly using (was 15 units for breakfast and lunch/ 22 units for supper- 10 units for chocolate milk snack before bed) Carb ratio 1:3 Bolus wizard: hardly using ISF: 1:10 (weakened) Blood Glucose Goals: 100-140 Active Insulin Time: 3 hours HEALTH MAINTENANCE INTERVENTIONS: Labs: Up to Date Immunizations: recommended to receive shingrix and covid Foot Exam: Up to Date Eye Exam: due Annual Wellness Visit: N/A FOLLOW UP: Return to clinic in 8 weeks 05/22/2023 Danielle Anderson RPh Clinical Pharmacist - Senior Marketing Specialist Medication Therapy Management Clinic 03/27/2023, 10:11 AM documented in this encounter Plan of Treatment Upcoming Encounters Date Type Specialty Care Team Description 04/01/2023 Immunization/Injecti o n Hematology Oncology Nurse, Med [address] [place] [address] 04/06/2023 Office Visit General Surgery [facility] [id number] 04/13/2023 Telemedicine Psychiatry Rj Mai MD [address] [place], [place] [id number] 04/16/2023 Telemedicine Pharmacy [facility] 132 [facility] [place] [address] 04/16/2023 Telemedicine Pharmacy [facility] 132 [facility] [place] [address] 05/19/2023 Office Visit Neurology Monica Shrestha MD 200 [facility] [place], [place] [address] 05/22/2023 Office Visit Pharmacy [address] [place] [address] 06/04/2023 Imaging Radiology 07/29/2023 Hospital Encounter Endoscopy Aj Pruett, DO [address] [place] [address] 07/29/2023 Surgery Endoscopy Aj Pruett, DO [address] [place] [address] COLONOSCOPY FLEXIBLE PROXIMAL DIAGNOSTIC 08/19/2023 Office Visit Hematology Oncology Sunil Bourgeois MD 200 [facility] [place], [place] [address] Scheduled Procedures Name Priority Associated Diagnoses Date/Ti [...] exists Zoster Vaccines (1 of 2) 2022 DIABETES-EYE EXAM 01/16/2023 01/16/2022, , 02/12/2016, Additional history exists COVID-19 Vaccine (3 - 2022- season) 2023 11/08/2020, 10/11/2020 Albumin/Creatinine Ratio 03/11/2023 022, 11/08/2021, 08/18/2018, Additional history exists B-12 06/11/2023 06/11/2022, 0 [...] this encounter Medical Devices Implanted Type Area Cryptographer Device Identifier Shelf Expiration Date Model / Serial / Lot Envelope Tyrx Med Antibacteril - [id number] Implanted:Qty: 1 on 08/22/2022 by Rafia Small MD at OR [facility] N/A: Spine Lumbar [employer] 03/10/2023 [id number] / / [id number] documented as of this encounter Visit Diagnoses [...] the patient have Health Care Power of Show Dog Trainer? No Code Status History Code Status Date Activated Date Inactivated Comments Full Code 01/21/2011 12:12 PM 01/22/2011 8:48 PM This order reflects the patients wishes and were consensually agreed upon. Question Answer Comments Discussion of Advance Directives occurred with: Patient Does the patient have a Living Will? No Does the patient have Health Care Power of Show Dog Trainer? No Care Teams Emergency Specialist Relationship Specialty Start Date End Date Scott Weldon MD 132 [facility] [place] [address] PCP - General Family Medicine 08/03/18 documented as of this encounter
--- OUTSIDE RECORDS SUMMARY | 2023-08-12 09:27 | External Medical Summary ---
Author Name Unknown Address Unknown Organization K1H:[facility] - [address] [place] [id number] Laboratory Report Ordering Provider Test Date Status CHANTALCALVIN 04/06/2023 15:24:00 Final Normal: <30 mg/g creatinine< br/>High: 30-300 mg/g creatinine
Very High: >300 mg/g creatinine
Nephrotic: >2200 mg/g creatinine Observation Date Value Abnormality Reference (Units ) Status Albumin, Urine 04/06/2023 15:24:00 <1.20 (mg/d L) Final This testing was performed a s part of a [facility] Care-Gap fulfillment initiative Creatinine, Urine 04/06/2023 15:24:00 183 (m g/dL) Final Albumin/Creatinine [Mass Rat io] in Urine 04/06/2023 15:24:00 <7 <30 (mg/g Creat) Neha white Performing Location [facility] - [address] [facility] [address]
--- OUTSIDE RECORDS SUMMARY | 2023-08-12 09:27 | External Medical Summary | Summary of Care ---
Author Name Unknown Organization [facility] Address [address] [facility] [place] [address] Phone [phone] Care Team Providers Care Cake Puller Name Role Phone Scott Montoya MD Primary Care Provider + Reason for Visit * Reason Comments eRx-Medication Refill Encounter Details Date Type Department Care Team (Late st Contact Info) Description 04/08/2023 Refill Family Practice [facility] [place] [address] Scott Montoya MD 132 [facility] [place] [address] Tachycardia Allergies Active Allergy Reactions Criticality Noted Date Comments Naproxen Sodium Bleeding High 11/29/2013 Pollen 12/03/2022 Seasonal Food (See Comments) Anaphylaxis High 04/20/2019 Hot peppers (oils) Kiwi Extract Anaphylaxis High 04/20/2019 documented as of this encounter (statuses as of 04/09/2023) Medications Medication Sig Dispensed Refills Start Date End Date Status ONETOUCH ULTRASOFT LANCETS MISCIndications:DM type 2, not at goal (HCC) check FS 6 times daily 4 Box 5 06/22/19 15 Active Insulin Syringe-Needle U-100 (BD INSULIN SYRINGE) 30G X 1/2" 0.5 ML MISC 3 daily injection in case of pump malfunction 100 Box Dosing Unit 3 07/25/20 16 Active insulin glargine (LANTUS SOLOSTAR) 100 [...] 5 06/15/19 18 Active Insulin Infusion Pump (MINIMTucker Auto-Mation 630G INSULIN PUMP) KITIndications:Type 2 diabetes mellitus [...] (Glucophage)Indicat ions:DM type 2, not at goal ([facility] [...] DAILY, VIA PUMP 90 mL 3 09/20/19 Active Magnesium Oxide 400 (240 Mg) MG Oral Tablet (Mag-Ox)Indications :Hypomagnesemia TAKE 1 TABLET BY MOUTH EVERY DAY 90 Tablet 10/06/19 Active Loratadine 10 MG Oral Tablet (Claritin)Indicatio ns:Allergic rhinitis Take 1 Tablet by mouth in the morning. For allergies.. 90 Tablet 10/17/19 Active Additional Information Patient taking differently:10 mg Oral Daily(AM),As needed, Reported on 11/27/2022 Meclizine HCl 25 MG Oral Tablet (Antivert)Indicatio ns:Vertigo Take 1 Tablet by mouth 3 times a day as needed for Dizziness. 30 Tablet 10/17/19 Active Pregabalin 100 MG Oral Capsule [...] of less than 8.0% ([facility]) Inject 1 mg under the skin once [...] overdose. Seek immediate medical attention. [email or web address]://[email or web address]/watch?v=v26c [email or web address] 1 Each 3 06/22/20 23 Active Spironolactone 50 MG Oral Tablet [...] BREATH 18 g 1 04/09/20 23 Active Atenolol 100 MG Oral Tablet (Tenormin)Indicatio ns:Tachycardia TAKE 1 TABLET BY MOUTH TWICE A DAY 180 Tablet 3 05/29/20 22 023 Discontinued Albuterol Sulfate HFA 108 (90 Base) MCG/ACT Inhalation Aerosol Solution INHALE 2 PUFFS BY MOUTH EVERY 6 HOURS NEEDED FOR SHORTNESS OF BREATH 18 g 1 02/07/20 23 023 Discontinued documented as of this encounter (statuses as of 04/09/2023) Active Problems Problem Noted Date Diagnosed Date [...] as of this encounter (statuses as of 04/09/2023) Resolved Problems Problem Noted Date Diagnosed Date [...] Overview: Per Obesity Taxonomy Coronary atherosclerosis of shoshone-paiute coronary artery 09/15/2008 10/03/2008 Malaise and fatigue [...] as of this encounter (statuses as of 04/09/2023) Immunizations Name Administration Dates Next Due COVID-19 mRNA, LNP-s, No Pre serve, 2-Dose Series ([employer]) 11/08/2020,10/11/2020 HEP A - Hepatitis A (Adult > 18 yrs) 04/11/2011, 09/20/2010 Hepatitis B, 20+ yrs 07/05/2015 Pneumococcal Conjugate Vacci ne, 20-valent ([email or web address]) 03/13/2023 Pneumococcal Polysaccharide PPV23 (Pneumovax) 02/19/2018,03/09/2007 SEASONAL [...] Miscellaneous Notes * Telephone Encounter - Polly Mcintyre, [facility] - 04/09/2023 8:08 AM EDTSigned Prescriptions: Disp Refills Atenolol 100 MG Oral Tablet (Tenormin) 180 Ta*3 Sig: TAKE 1 TABLET BY MOUTH TWICE A DAYAuthorizing Provider: SCOTT MONTOYA User: POLLY MCINTYRE Albuterol Sulfate HFA 108 (90 Base) MCG/AC*18 g 1 Sig: INHALE 2 PUFFS BY MOUTH EVERY 6 HOURS NEEDED FOR SHORTNESS OF BREATHAuthorizing Provider: SCOTT MONTOYA User: POLLY MCINTYRE documented in this encounter Plan of Treatment Upcoming Encounters Date Type Department Care Team (Latest Contact Info) Description 04/13/2023 1:00 PM EST Telemedicine Psychiatry, [facility] [address] [address] Rj Mai MD [address] [place] [address] 04/24/2023 8:00 AM EST Office Visit General Surgery, [facility] [address] [place] [address] Kevin Wilhelm MD 132 [place] [address] 05/07/2023 1:00 PM EST Telemedicine Pharmacy, [facility] [address] [place] [address] [facility] 132 [place] [address] 05/07/2023 1:30 PM EST Telemedicine Pharmacy, [facility] [address] [place] [address] [facility] 132 [place] [address] 05/19/2023 3:40 PM EST Office Visit Neurology [facility] [address] [facility] [address] [place] [address] Monica Shrestha MD 200 [facility] [place] [address] 05/22/2023 11:30 AM EST Office Visit Pharmacy, [address] [place] [address] [facility], [place] [address] 06/04/2023 11:00 AM EST Imaging Radiology [address], [place] [address] [place] [address] 07/29/2023 12:45 PM EST Hospital Encounter ENDO [facility], Endoscopy Room [facility] [address] [place], [place] [phone] Aj Pruett, DO [address] [place] [address] 07/29/2023 12:45 PM EST - 07/29/2023 1:15 PM EST Surgery ENDO [facility], Endoscopy Room [facility] [address] [place], [place] [phone] Aj Pruett, DO [address] [place] [address] COLONOSCOPY FLEXIBLE PROXIMAL DIAGNOSTIC 08/19/2023 2:15 PM EDT Office Visit Hematology/Oncolog y Roney Melendez [place] [address] [place], [place] [address] Sunil Bourgeois MD [address] [place], [place] [address] Scheduled Procedures Name Priority Associated Diagnoses Date/Ti [...] this encounter Medical Devices Implanted Type Area Die Polisher Device Identifier Shelf Expiration Date Model / Serial / Lot Envelope Tyrx Med Antibacteril - [id number] Implanted:Qty: 1 on 08/22/2022 by Rafia Small MD at OR [facility] N/A: Spine Lumbar [employer] 03/10/2023 [id number] / / [id number] documented as of this encounter Visit Diagnoses Diagnosis Tachycardia Tachycardia, unspecified Screen for colon cancer Special screening [...] the patient have Health Care Power of Cigar Head Holer? No Code Status History Code Status Date Activated Date Inactivated Comments Full Code 01/21/2011 12:12 PM 01/22/2011 8:48 PM This order reflects the patients wishes and were consensually agreed upon. Question Answer Comments Discussion of Advance Directives occurred with: Patient Does the patient have a Living Will? No Does the patient have Health Care Power of Cigar Head Holer? No Care Teams Cake Puller Relationship Specialty Start Date End Date Scott Montoya MD 132 [facility] [place] [address] PCP - General Family Medicine 08/03/18 documented as of this encounter
--- OUTSIDE RECORDS SUMMARY | 2023-08-12 09:27 | External Medical Summary | Summary of Care ---
Author Name Unknown Organization [facility] Address [address] [place] [address] Phone [phone] Care Team Providers Care Tax Clerk Name Role Phone Scott Weldon MD Primary Care Provider + Reason for Visit * Reason Onset Date Comments Patient Assistance Program 03/27/2023 Ozemp ic and novolin R Encounter Details Date Type Department Care Team Description 03/27/2023 Telephone Pharmacy, [address] [address] Danielle Anderson, [facility] 200 [place] [address] Patient Assistance Program (Ozempic and no... Allergies Active Allergy Reactions Severity Noted Date [...] Dosing Unit 3 6 Active Glucose Blood (BigBad CONTOUR NEXT TEST) STRP Use to test [...] of less than 8.0% ([facility]),DM type 2, not at goal ([facility]) INJECT UP TO 275 [...] 1y trigger shot/SI injection consent signed Family friend-[facility]. Son Ricky-fall. Also son Hieu. Sim--2019 melanoma. [...] Overview: Per Obesity Taxonomy Coronary atherosclerosis of [place] coronary abdias ry 09/15/2008 10/03/2008 Malaise and [...] mRNA, LNP-s, No Pre serve, 2-Dose Series ([employer]) 11/08/2020,10/11/2020 HEP A - Hepatitis A (Adult > 18 yrs) 04/11/2011, 09/20/2010 Hepatitis B, 20+ yrs 07/05/2015 Pneumococcal Conjugate Vacci ne, 20-valent ([id number]) 03/13/2023 Pneumococcal Polysaccharide PPV23 (Pneumovax) 02/19/2018,03/09/2007 SEASONAL [...] Telephone Encounter - Danielle Anderson RPh - 03/27/2023 1:23 PM EDT Patient has Medicare part D ([email or web address]) and therefore needs to re-enroll in NovoNordisk PAP for 2023 year. Filled out and faxed documents for patient to receive Ozempic 2 mg and Novolin R (up to150 units daily) with successful confirmation of fax. Danielle Anderson, PharmD Clinical Pharmacist Medication Therapy Disease Management 03/27/2023, 1:24 PM Electronically signed by Danielle Anderson [facility] at 03/27/2023 1:25 PM EDT documented in this encounter Plan of Treatment Upcoming Encounters Date Type Specialty Care Team Description 04/01/2023 Immunization/Injecti o n Hematology Oncology Nurse, Med [address] [place] [address] 04/06/2023 Office Visit General Surgery Mariano Billingsley MD [address] [place] [address] 04/13/2023 Telemedicine Psychiatry Rj Mai MD [address] [facility] [address] 04/16/2023 Telemedicine Pharmacy [facility] [address] [facility] [place] [address] 04/16/2023 Telemedicine Pharmacy [facility] [address] [facility] [place] [address] 05/19/2023 Office Visit Neurology Monica Shrestha MD 200 [place] [address] 05/22/2023 Office Visit Pharmacy [address] [place] [address] 06/04/2023 Imaging Radiology 07/29/2023 Hospital Encounter Endoscopy Aj Pruett, DO [address] [place] [address] 07/29/2023 Surgery Endoscopy Aj Pruett, DO [address] [place] [address] COLONOSCOPY FLEXIBLE PROXIMAL DIAGNOSTIC 08/19/2023 Office Visit Hematology Oncology Sunil Bourgeois MD 200 [place] [address] Scheduled Procedures Name Priority Associated Diagnoses Date/Ti [...] ( season) 2023 11/08/2020, 10/11/2020 Albumin/Creatinine Ratio 03/11/2023 [...] this encounter Medical Devices Implanted Type Area Net Repairer Device Identifier Shelf Expiration Date Model / Serial / Lot Envelope Tyrx Med Antibacteril - [id number] Implanted:Qty: 1 on 08/22/2022 by Rafia Small MD at OR [facility] N/A: Spine Lumbar [employer] 03/10/2023 [id number] / / [id number] documented as of this encounter Visit Diagnoses [...] the patient have Health Care Power of Graduate Internship? No Code Status History Code Status Date Activated Date Inactivated Comments Full Code 01/21/2011 12:12 PM 01/22/2011 8:48 PM This order reflects the patients wishes and were consensually agreed upon. Question Answer Comments Discussion of Advance Directives occurred with: Patient Does the patient have a Living Will? No Does the patient have Health Care Power of Graduate Internship? No Care Teams Tax Clerk Relationship Specialty Start Date End Date Scott Weldon MD [address] [place] [address] PCP - General Family Medicine 08/03/18 documented as of this encounter
--- OUTSIDE RECORDS SUMMARY | 2023-08-12 09:27 | External Medical Summary | Summary of Care ---
Author Name Unknown Organization [facility] Address [address] [facility] [place] [address] Phone [phone] Care Team Providers Care Adolescent Specialist Name Role Phone Scott Weldon MD Primary Care Provider + Reason for Visit * Reason Onset Date Comments Advice 03/24/2023 Encounter Details Date Type Department Care Team Description 03/24/2023 Telephone OR [facility], Operating Room [facility] [address] [place] [phone] Aj Pruett, [address] [place] [address] Advice Allergies Active Allergy Reactions Severity Noted Date Comments Naproxen Sodium Bleeding High 11/29/2013 Pollen 12/03/2022 Seasonal Food (See Comments) Anaphylaxis High 04/20/2019 Hot peppers (oils) Kiwi Extract Anaphylaxis High 04/20/2019 documented as of this encounter (statuses as of 03/24/2023) Medications Medication Sig Dispensed Refills Start Date [...] 5 06/15/19 18 Active Insulin Infusion Pump (MINIMTidal 630G INSULIN PUMP) KITIndications:Type 2 diabetes mellitus with hemoglobin A1c goal of less than 8.0% (HCC) Use as directed. 0 07/30/19 18 Active Metoclopramide HCl 5 MG Oral Tablet (Reglan) Take by mouth 1 Tablet three times a day before meals . If needed for nausea 30 Tablet 0 09/14/19 22 Active Atenolol 100 MG Oral Tablet (Tenormin)Indicatio ns:Tachycardia TAKE 1 TABLET BY MOUTH TWICE A DAY 180 Tablet 3 05/29/20 22 Active metFORMIN HCl 1000 MG Oral [...] of less than 8.0% ([facility]),DM type 2, not at goal ([facility]) INJECT UP TO 275 UNITS SUBCUTANEOUSLY ONCE DAILY, VIA PUMP 90 mL 3 09/20/19 Active Magnesium Oxide 400 (240 Mg) MG Oral Tablet (Mag-Ox)Indications :Hypomagnesemia TAKE 1 TABLET BY MOUTH EVERY DAY 90 Tablet 3 10/06/19 Active Loratadine 10 MG Oral Tablet (Claritin)Indicatio ns:Allergic rhinitis Take 1 Tablet by mouth in the morning. For allergies.. 90 Tablet 1 10/17/19 Active Additional Information Patient taking differently:10 [...] of less than 8.0% ([facility]) Inject 1 mg under the skin once [...] suspected opioid overdose. Seek immediate medical attention. [email or web address]://[email or web address]?v=[email or web address] 1 Each 3 11/28/19 23 Active Spironolactone 50 MG Oral Tablet (Aldactone)Indicati ons:Liver cirrhosis secondary to nonalcoholic steatohepatitis (MENDEZ) (HCC),Obesity, Class III, BMI 40-49.9 (morbid obesity) (HCC),Type 2 diabetes mellitus with hemoglobin A1c goal of less than 8.0% (HCC),HTN, goal below 130/80,Dyslipidemia , goal LDL below 100,Other ascites,Peripheral edema TAKE 1 TABLET BY MOUTH EVERY DAY IN THE MORNING 90 Tablet 1 12/05/19 23 Active Eszopiclone 1 MG Oral Tablet (Lunesta)Indication s:sleep Take 1 Tablet by mouth at bedtime. 30 Tablet 2 01/08/20 23 Active Potassium Chloride ER 10 MEQ [...] anxiety 120 Tablet 3 02/03/20 23 Active Albuterol Sulfate HFA 108 (90 Base) MCG/ACT Inhalation Aerosol Solution INHALE 2 PUFFS BY MOUTH EVERY 6 HOURS NEEDED FOR SHORTNESS OF BREATH 18 g 1 02/07/20 23 Active Baclofen 10 MG Oral Tablet (Lioresal)Indicatio ns:muscle spasms Take 1 Tablet by mouth 3 times a day as needed for Muscle spasms. 90 Tablet 5 02/13/20 23 Active Omeprazole 20 MG Oral Capsule Delayed Release (PriLOSEC)Indicatio ns:Gastroesophageal reflux disease without esophagitis TAKE 1 CAPSULE BY MOUTH TWICE A DAY 180 Capsule 1 03/05/20 23 Active Buprenorphine 5 MCG/HR Transdermal Patch Weekly (Butrans) Place 1 Patch topically on the skin once a week. 4 Patch 0 03/10/20 23 Active Ondansetron HCl 4 MG Oral Tablet Take 1 Tablet by mouth every 8 hours as needed for Nausea. 20 Tablet 0 03/24/20 23 Active Ondansetron HCl 8 MG Oral Tablet (Zofran)Indications :Nausea and vomiting, intractability of vomiting not specified, unspecified vomiting type TAKE 1 TABLET BY MOUTH EVERY 8 HOURS NEEDED FOR NAUSEA 90 Tablet 1 07/17/19 22 023 Discontinued documented as of this encounter (statuses as of 03/24/2023) Active Problems Problem Noted Date Esophageal varices [...] as of this encounter (statuses as of 03/24/2023) Resolved Problems Problem Noted Date Resolved Date [...] Overview: Per Obesity Taxonomy Coronary atherosclerosis of paiute-shoshone coronary abdias ry 09/15/2008 10/03/2008 Malaise and [...] as of this encounter (statuses as of 03/24/2023) Immunizations Name Administration Dates Next Due COVID-19 mRNA, LNP-s, No Pre serve, 2-Dose Series ([employer]izer) 11/08/2020,10/11/2020 HEP A - Hepatitis A (Adult > 18 yrs) 04/11/2011, 09/20/2010 Hepatitis B, 20+ yrs 07/05/2015 Pneumococcal Conjugate Vacci ne, 20-valent ([id number]) 03/13/2023 Pneumococcal Polysaccharide PPV23 (Pneumovax) 02/19/2018,03/09/2007 SEASONAL [...] encounter Miscellaneous Notes * Telephone Encounter - Mary Gomez RN - 03/24/2023 3:07 PM EDT Called and notified pt that rx was sent. * Telephone Encounter - Aj Pruett DO - 03/24/2023 12:57 PM EDT Zofran 4 mg sent to pharmacy. Would suggest use of a dose 1 hour prior to each part of the bowel prepaation. * Telephone Encounter - DONNA Skelton - 03/24/2023 10:22 AM EDT Colon taylor'd to 07/29 tamika/ Flynn Pt requesting Reglan script be sent to [facility]. * Telephone Encounter - Leonarda Mccabe RN - 03/24/2023 10:04 AM EDT This patient is cancelling her colonoscopy scheduled for 03-26-23 due to not feeling well. She would like called back to reschedule.Patient is on ozempic so will need extended prep instruction sent to her and is requesting reglan called into pharmacy due to her hx of gastroparesis documented in this encounter Plan of Treatment Upcoming Encounters Date Type Specialty Care Team Description 03/27/2023 Office Visit Pharmacy [place] [address] [place] [address] 04/01/2023 Immunization/Injecti o n Hematology Oncology Nurse, [facility] [address] [facility] [place] [address] 04/06/2023 Office Visit General Surgery OliviertrMariano duke MD [address] [place] [address] 04/13/2023 Telemedicine Psychiatry Rj Mai MD [address] [place] [address] 04/16/2023 Telemedicine Pharmacy [facility] [address] [place] [address] 04/16/2023 Telemedicine Pharmacy [facility] [address] [facility] [place] [address] 05/19/2023 Office Visit Neurology Monica Shrestha MD 200 [facility] [place] [address] 06/04/2023 Imaging Radiology 07/29/2023 Hospital Encounter Endoscopy Aj Pruett DO [address] [place] [address] 07/29/2023 Surgery Endoscopy Aj Pruett, DO [address] [place] [address] COLONOSCOPY FLEXIBLE PROXIMAL DIAGNOSTIC 08/19/2023 Office Visit Hematology Oncology Sunil Bourgeois MD [address] [place] [address] Scheduled Procedures Name Priority Associated Diagnoses Date/Ti [...] Vaccine ( - season) 2023 11/08/2020, 10/11/2020 Albumin/Creatinine Ratio 03/11/2023 [...] this encounter Medical Devices Implanted Type Area Delicatessen Goods Stock Clerk Device Identifier Shelf Expiration Date Model / Serial / Lot Envelope Tyrx Med Antibacteril - [id number] Implanted:Qty: 1 on 08/22/2022 by Rafia Small MD at OR [facility] N/A: Spine Lumbar [employer] 03/10/2023 [id number] / / [id number] documented as of this encounter Advance Directives [...] the patient have Health Care Power of Emergency Communications Officer? No Code Status History Code Status Date Activated Date Inactivated Comments Full Code 01/21/2011 12:12 PM 01/22/2011 8:48 PM This order reflects the patients wishes and were consensually agreed upon. Question Answer Comments Discussion of Advance Directives occurred with: Patient Does the patient have a Living Will? No Does the patient have Health Care Power of Emergency Communications Officer? No Care Teams Adolescent Specialist Relationship Specialty Start Date End Date Scott Weldon MD [address] [place] [address] PCP - General Family Medicine 08/03/18 documented as of this encounter
--- OUTSIDE RECORDS SUMMARY | 2023-08-12 09:28 | External Medical Summary | Summary of Care ---
Author Name Unknown Organization [facility] Address [address] [facility] [address] Phone [phone] Care Team Providers Care Slitter Service And Setter Name Role Phone Scott Weldon MD Primary Care Provider + Reason for Referral * Evaluate & Treat - Unlimited Visits (Within 10 days (routine)) - Authorized Specialty Diagnoses / Procedures Referred By Dory payan Referred To Contact General Surgery Diagnoses Skin mass Scott Weldon MD [address] [place] [address] Referral ID Status Reason Start Date Expiration Date Visits Requested Visits Authorized [id number] Authorized Specialty Services Required 03/13/[phone] Question Answer Referral Priority Within 10 days (routine) Where should this appointment be scheduled? [facility] What condition is the patient being seen for? General Surgery Conditions What condition is the patient being seen for? Skin Lesions (SubQ Nodules) Comments Large skin tag/mass left posterior thigh, please eval for excision Reason for Visit * Reason Onset Date Comments Return Visit 6 month return Medication Administration 03/13/2023 Flu an d/or Pneumo Inj Encounter Details Date Type Department Care Team Description 03/13/2023 Office Visit [facility] [address] [place] [id number] Scott Weldon MD [address] [place] [address] Type II diabetes mellitus with neurological manifestations (HCC)*; Diabetic retinopathy of both eyes without macular edema associated with type 2 diabetes mellitus, unspecified retinopathy severity (HCC); Thrombocytopenia (HCC); HTN, goal below 130/80; Need for pneumococcal vaccination; Skin mass; Need for prophylactic vaccination and inoculation against influenza Allergies Active Allergy Reactions Severity Noted Date Comments Naproxen Sodium Bleeding High 11/29/2013 Pollen 12/03/2022 Seasonal Food (See Comments) Anaphylaxis High 04/20/2019 Hot peppers (oils) Kiwi Extract Anaphylaxis High 04/20/2019 documented as of this encounter (statuses as of 03/15/2023) Medications Medication Sig Dispensed Refills Start Date End Date Status ONETOUCH ULTRASOFT LANCETS MISCIndications:DM type 2, not at goal ([facility]) check FS 6 times daily 4 [...] directed. 100 Pre-filled Pen Syringe Dosing Unit 6 Active Glucose Blood (SYLVIA CONTOUR NEXT TEST) STRP Use to test blood sugar up to 6 times per day. E11.9 These are the ONLY test strips patient can use with insulin pump 200 Strip 5 7 Active Insulin Pen Needle (BD PEN NEEDLE MINI U/F) 31G X 5 MMIndications:Type 2 diabetes mellitus with hemoglobin A1c goal of less than 8.0% ([facility]) Use with Victoza once daily 100 Each 5 8 Active Insulin Infusion Pump (MINIMED 630G INSULIN PUMP) KITIndications:Type 2 diabetes mellitus with hemoglobin A1c goal of less than 8.0% ([facility]) Use as directed. 0 02/22/201 8 Active Ondansetron HCl 8 MG Oral Tablet (Zofran)Indications: Nausea and vomiting, intractability of vomiting not specified, unspecified vomiting type TAKE 1 TABLET BY MOUTH EVERY 8 HOURS NEEDED FOR NAUSEA 90 Tablet 1 2 Active Metoclopramide HCl 5 MG Oral Tablet [...] suspected opioid overdose. Seek immediate medical attention. [email or web address]?v=[email or web address] [email or web address] 1 Each 3 3 Active [...] a week. 4 Patch 0 3 Active documented as of this encounter (statuses as of 03/15/2023) Active Problems Problem Noted Date Esophageal varices [...] as of this encounter (statuses as of 03/15/2023) Resolved Problems Problem Noted Date Resolved Date [...] epilepticus 03/09/2019 06/09/2019 Malignant neoplasm of liver 02/04/201907/2020 Obesity, Class III, BMI 40-49.9 (morbid obesity) [...] of multiple joints 10/13/2012 Abdominal pain, generalized 09/08/2012 11/02/2016 Ascites 09/08/2012 09/15/2014 Other psychological or physi [...] Overview: Per Obesity Taxonomy Coronary atherosclerosis of [place] coronary abdias ry 09/15/2008 10/03/2008 Malaise and [...] as of this encounter (statuses as of 03/15/2023) Immunizations Name Administration Dates Next Due COVID-19 mRNA, LNP-s, No Pre serve, 2-Dose Series (Revelation) 11/08/2020,10/11/2020 HEP A - Hepatitis A (Adult > 18 yrs) 04/11/2011, 09/20/2010 Hepatitis B, 20+ yrs 07/05/2015 Pneumococcal Conjugate Vacci ne, 20-valent ([id number]) 03/13/2023 Pneumococcal Polysaccharide PPV23 (Pneumovax) 02/19/2018,03/09/2007 SEASONAL [...] Passive Smoke Exposure: Past Smokeless Tobacco: Never Tobacco Cessation:Counseling Given: Not Answered Alcohol Use Standard Drinks/Week Comments No 0 [...] on file documented as of this encounter Last Filed Vital Signs Vital Sign Reading Time Taken Comments Blood Pressure 124/72 03/13/2023 12:24 PM EDT Pulse 84 03/13/2023 12:24 PM EDT Temperature - - Respiratory Rate 16 03/13/2023 12:24 PM EDT Oxygen Saturation 94% 03/13/2023 12:24 PM EDT Inhaled Oxygen Concentration - - Weight 107.2 kg (236 lb 7 oz) 03/13/2023 12:24 P M EDT Height 166.4 cm (5' 5.51") 03/13/2023 12:24 PM E DT Body Mass Index 38.74 03/13/2023 12:24 PM EDT documented in this encounter Functional Status Functional Status Response [...] No 04/20/2019 documented as of this encounter Patient Instructions * Patient Instructions* Kathie Soares LPN - 03/13/2023 12:28 PM EDT Diabetes: Keeping Feet Healthy Inspect your feet every day for signs of a problem. Diabetes can damage nerves in your feet and cause neuropathy. This condition makes it hard for you to feel injuries or sore spots. Diabetes can also change blood flow, making it harder for small problems, like a blister, to heal properly. In fact, minor injuries can quickly become serious infections that send you to the hospital. Practice self-care to protect your feet and keep them healthy. Take Special Care Inspect your feet daily for problems such as redness, blisters, cracks, dry skin, or numbness. Use a mirror to see the bottoms of your feet. Or, ask for help. Manage your diabetes. Monitor and control your blood sugar. Take all your medications as prescribed. Avoid walking barefoot, even indoors. Wash your feet with warm water and mild soap. Dry well, especially between toes. Dont treat corns or calluses yourself. Talk to your doctor or wilton weaver (a doctor who specializes in foot care) if you need assistance trimming your toenails. Use moisturizing cream or lotion if you have dry skin, but dont use it between toes. Dont use heating pads on your feet. If you have neuropathy, you could get a burn and not feel it. Stop smoking. Smoking restricts blood flow and can make it harder for wounds to heal. Have Regular Checkups Foot problems can develop quickly. So be sure to follow your healthcare teams schedule for regular checkups. During office visits, take off your shoes and socks as soon as you get in the exam room. Ask your healthcare provider to examine your feet for problems. This will make it easier to find and treat small skin irritations before they get worse. Regular checkups can also help keep track of the blood flow and feeling in your feet. If you have neuropathy, you may need to have checkups more often. Wear Proper Footwear Wearing proper footwear is very important. If areas of your feet have been damaged by too much pressure, your healthcare provider may recommend changing your footwear. In some cases, avoiding high heels or tight work boots may be all thats needed. Or, your healthcare provider may recommend special shoes or custom inserts. These help protect your feet and keep existing irritations from getting worse. If you need special footwear, ask your healthcare provider if you qualify for [employer] diabetic shoe program. Make Sure Shoes and Socks Fit Any pair of shoes--new or old--should feel comfortable as soon as you put them on. There shouldnt be any rubbing when you walk. Wear the right shoe for any activity. For instance, a running shoe is designed to keep your feet injury-free while jogging. Buy shoes at the end of the day, when your feet are larger. Make sure they provide support without feeling too loose. Make sure your socks fit, t oo. Wear soft, seamless, well-padded socks for activity. Cotton or microfiber socks are best to help to absorb sweat. To protect your feet, avoid shoes that are open-toed or open-heeled. If you have questions about what kinds of shoes and socks are best, talk to your healthcare team. Get Regular Exercise Regular exercise improves blood flow in your feet. It also increases foot strength and flexibility.Gentle exercises, like walking or riding a stationary bicycle, are best. You can also do special foot exercises. Just be sure to talk with your healthcare provider before starting any exercise program. Also mention if any exercise causes pain, redness, or other signs of foot problems. Note: If you have any kind of break in the skin of your foot or ankle, keep the area clean. Then call your doctor--especially if the area doesnt appear to be healing. [phone] [employer], [address] [place] [address], [place] [address]. All rights reserved. This information is not intended as a substitute for professional medical care. Always follow your healthcare professional's instructions. documented in this encounter Progress Notes * Scott Weldon MD - 03/14/2023 12:12 PM EDT SUBJECTIVE: Carmen Tyson is a 52 year old female here for Return Visit (6 month return) and Medication Administration (Flu and/or Pneumo Inj) . Here for f/u Overall pain improved about 50% with spinal stimulator in back/legs. Neuropathy much improved, has regained feeling in feet. Abd pain off & on chronic. Butrans also helping a lot she thinks. Sees heme-s/p IV iron, monitoring platelets with her cirrhosis. No bleeds. No fever, chills, chest pain, shortness of breath, headache patient has experienced improvement in pain control and level of functioning well on Butrans The narcotic will be used in combination with tolerated non pharmacologic therapy and non opiate pharacologic therapy and I have reviewed her medical record documentation for urine drug screening testing for listed and illicit drugs with the potential for abuse consistent with prescribed controlled substances. Patient has tried and failed non-drug pain management modalities and non-opioid drugs, acetaminophen, nsaids, etc. It will be used in combination with tolerated non drug therapies and non-opioid meds. Patient was assessed for potential risk of misuse, abuse, and addiction based on family and social history. Patient was counseled regarding potential side effects of opioids including risk or misuse, abuse, addiction. Patient was assessed for recent (w/in 60d) opioid use. Patient was evaluated for risk factors for opioid related harm. If identified to be at high risk for Opioid -related harm, the prescribed considered naloxone. Scott Weldon MD Physical: BP 124/72 | Pulse 84 | Resp 16 | Ht 1.664 m (5' 5.51") | Wt 107.2 kg (236 lb 7 oz) | SpO2 94% | BMI38.74 kg/m | BSA 2.23 m General-No apparent Distress Head, Eyes, Ears, Nose, Throat--Normocephalic, atraumatic Neck-Supple Lymph-no lymphadenopathy Lungs-Clear to Auscultation bilaterally Cardiovascular--Regular rate & Rhythm, +s1, s2, no murmur Abdomen-soft, some LUQ/LLQ tender, nondistended + bowel sounds Extremities--no edema Neuro-alert & oriented x3 altered gait Skin-pendunculated skin mass left post thigh (E11.49) Type II diabetes mellitus with neurological manifestations (HCC) (primary encounter diagnosis) Plan: DIABETES FOOT EXAM Labs reviewed/ordered Cont mgmt Declined covid shot Flu today Prevnar 20 today Shingrix in future (E11.319) Diabetic retinopathy of both eyes without macular edema associated with type 2 diabetes mellitus, unspecified retinopathy severity (HCC) Plan: ALBUMIN / CREATININE RATIO, URINE (D69.6) Thrombocytopenia (HCC) Plan: monitoring w/heme. Likely due to liver (I10) HTN, goal below 130/80 Plan: cont mgmt (Z23) Need for pneumococcal vaccination Plan: PNEUMOCOCCAL VACC, PCV20, IM ([id number]) (R22.9) Skin mass Plan: SURGERY REFERRAL OP (Z23) Need for prophylactic vaccination and inoculation against influenza Plan: INFLUENZA VACC, QUAD, PF, 6 MONTHS & UP, 0.5 ML, IM I spent a total of 40-54 minutes (exact time 46 mins) on the date of service in preparation, delivery, and documentation of the care provided to Carmen Tyson excluding any time spent in the performance of separately billed services. (This note was completed using the dictation program Fluency Direct. As such, there may be misspellings, word substitutions, or other variations that should not change the essence of the clinical content of this encounter note.If there is need for further clarification, please direct questions to the provider listed above.) Scott Weldon MD * Kathie Soares LPN - 03/13/2023 1:01 PM EDT PRE - ADMINISTRATION DOCUMENTATION Are you experiencing any cold symptoms or fever? No Have you had Guillain-[place] Syndrome (an illness that causes paralysis) within the last 6 weeks? No Have you had the flu shot in the past? YES Have you ever had a reaction to the flu shot? No Kathie Soares LPN, 03/13/2023 1:01 PM Immunization Administration Documentation Time Out Procedure Performed: Yes Patient Identified (Ask Name/Date of ): Yes Does the patient have a fever greater than 101 degrees today? No Patient allergic to latex? No VFC Stock: No Immunization(s) verified: Yes, Immunization Name: Flu and Prevnar 20 (PCV20), VIS Sheet(s) given: Yes Verified Side and Site: Yes Verified Shot(s) with Parent(s)/Patient: Yes * Kathie Soares LPN - 03/13/2023 12:28 PM EDT DM Foot Exam completed today. Provider aware. Kathie Soares LPN Socks and Shoes Removed for Annual Diabetic Foot Screening RIGHT FOOT: Area of Concern: Dry cracking skin on heel RIGHT Dorsalis Pedis Pulse: Palpable RIGHT Posterior Tibial Pulse: Palpable RIGHT Monofilament:Patient reports feeling monofilament pressure on plantar surface of foot LEFT FOOT: Area of Concern Dry cracking skin on heel LEFT Dorsalis Pedis Pulse: Palpable LEFT Posterior Tibial Pulse: Palpable LEFT Monofilament:Patient reports feeling monofilament pressure on plantar surface of foot Do you need diabetic shoes: No documented in this encounter Nursing Notes * Kathie Soares LPN - 03/13/2023 12:24 PM EDT The patient has been properly identified by confirmation of name and date of . Chief Complaint Patient presents with Return Visit 6 month return documented in this encounter Plan of Treatment Upcoming Encounters Date Type Specialty Care Team Description 03/26/2023 Hospital Encounter Endoscopy Aj Pruett, DO [address] [place] [address] 03/26/2023 Surgery Endoscopy Aj Pruett, DO [address] [place] [address] COLONOSCOPY FLEXIBLE PROXIMAL DIAGNOSTIC 03/27/2023 Office Visit Pharmacy [facility] [address] [place] [address] 04/01/2023 Immunization/Injecti o n Hematology Oncology Nurse, [facility] [address] [facility] [place] [address] 04/13/2023 Telemedicine Psychiatry Rj Mai MD [address] [place] [address] 04/16/2023 Telemedicine [facility] [address] [place] [address] 05/19/2023 Office Visit Neurology Monica Shrestha MD [address] [facility] [place], [place] [address] 06/04/2023 Imaging Radiology 08/19/2023 Office Visit Hematology Oncology Sunil Bourgeois MD [address] [facility] [place], [place] [address] Scheduled Orders Name Type Priority Associated Diagnoses Orde r Schedule ALBUMIN / CREATININE RATIO, URINE Lab Routine Diabetic retinopathy of both eyes without macular edema associated with type 2 diabetes mellitus, unspecified retinopathy severity (HCC) Expected: 03/13/2023 (Approximate), Expires: 03/13/2024 Scheduled Procedures Name Priority Associated Diagnoses Date/Ti me COLONOSCOPY FLEXIBLE PROXIMAL DIAGNOSTIC Screen for colon cancer 03/26/2023 11:45 AM EDT Scheduled Referrals Name Type Priority Associated Diagnoses Orde r Schedule SURGERY REFERRAL OP Referral Within 10 da ys (routine) Skin mass Ordered: 03/13/2023 Health Maintenance Due Date Last Done Comments [...] 08/18/2018, Additional history exists B-12 06/11/2023 06/11/2022, 010 12/2020, 07/05/2019, Additional history exists HbA1c 08/19/2023 [...] this encounter Medical Devices Implanted Type Area Police Captain Device Identifier Shelf Expiration Date Model / Serial / Lot Envelope [employer] Med Antibacteril - [id number] Implanted:Qty: 1 on 08/22/2022 by Rafia Small MD at OR [facility] N/A: Spine Lumbar [employer] 03/10/2023 [id number] / / [id number] documented as of this encounter Visit Diagnoses Diagnosis Type II diabetes mellitus with neurological manifestations (HCC)- Primary Type II or unspecified type diabetes mellitus with neurological manifestations, not stated as uncontrolled Diabetic retinopathy of both eyes without macular edema associated with type 2 diabetes mellitus, unspecified retinopathy severity (HCC) Thrombocytopenia (HCC) Thrombocytopenia, unspecified HTN, goal below 130/80 Unspecified essential hypertension Need for pneumococcal vaccination Need for prophylactic vaccination against streptococcus pneumoniae (pneumococcus) Skin mass Localized superficial swelling, mass, or lump Need for prophylactic vaccination and inoculation against influenza Screen for colon cancer Special screening for [...] the patient have Health Care Power of Bulldozer Press Operator? No Code Status History Code Status Date Activated Date Inactivated Comments Full Code 01/21/2011 12:12 PM 01/22/2011 8:48 PM This order reflects the patients wishes and were consensually agreed upon. Question Answer Comments Discussion of Advance Directives occurred with: Patient Does the patient have a Living Will? No Does the patient have Health Care Power of Bulldozer Press Operator? No Care Teams Slitter Service And Setter Relationship Specialty Start Date End Date Scott Weldon MD [address] [place] [address] PCP - General Family Medicine 08/03/18 documented as of this encounter
--- OUTSIDE RECORDS SUMMARY | 2023-08-12 09:28 | External Medical Summary | Summary of Care ---
Author Name Unknown Organization [facility] Address [address] [facility] [place] [address] Phone [phone] Care Team Providers Care Coo & Co Founder Name Role Phone Scott Montoya MD Primary Care Provider + Reason for Visit * Reason Comments eRx-Medication Refill Encounter Details Date Type Department Care Team Description 03/04/2023 Refill Family Practice [facility] [address] [facility] [place] [address] Scott Montoya MD [address] [place] [address] Gastroesophageal reflux disease without esophagitis Allergies Active Allergy Reactions Severity Noted Date Comments Naproxen Sodium Bleeding High 11/29/2013 Pollen 12/03/2022 Seasonal Food (See Comments) Anaphylaxis High 04/20/2019 Hot peppers (oils) Kiwi Extract Anaphylaxis High 04/20/2019 documented as of this encounter (statuses as of 03/05/2023) Medications Medication Sig Dispensed Refills Start Date [...] of less than 8.0% ([facility]) Use with Victoza once daily 100 Each 5 06/15/19 18 Active Insulin Infusion Pump (MINIMED 630G INSULIN PUMP) KITIndications:Type 2 diabetes mellitus with hemoglobin A1c goal of less than 8.0% ([facility]) Use as directed. 0 07/30/19 18 Active Ondansetron HCl 8 MG Oral Tablet (Zofran)Indications :Nausea and vomiting, intractability of vomiting not specified, unspecified vomiting type TAKE 1 TABLET BY MOUTH EVERY 8 HOURS NEEDED FOR NAUSEA 90 Tablet 1 07/17/19 22 Active Metoclopramide HCl 5 MG Oral Tablet [...] in the morning. 90 Tablet 3 09/09/19 Active Additional Information Patient taking differently:40 mg OralHS, Reported on 10/06/2022 NovoLIN R ReliOn 100 UNIT/ML Injection Solution (insulin REGULAR human)Indications:T ype 2 diabetes mellitus with hemoglobin A1c goal of less than 8.0% ([facility]),DM type 2, not at goal (HCC) INJECT [...] suspected opioid overdose. Seek immediate medical attention. [email or web address] 1 Each 3 11/28/19 23 Active Spironolactone [...] BREATH 18 g 1 02/07/20 23 Active Buprenorphine 5 MCG/HR Transdermal Patch Weekly (Butrans) PLACE 1 PATCH TOPICALLY ON THE SKIN ONCE A WEEK. 4 Patch 0 02/11/20 23 Active Baclofen 10 MG Oral Tablet (Lioresal)Indicatio ns:muscle spasms Take 1 Tablet by mouth 3 times a day as needed for Muscle spasms. 90 Tablet 5 02/13/20 23 Active Omeprazole 20 MG Oral Capsule Delayed Release (PriLOSEC)Indicatio ns:Gastroesophageal reflux disease without esophagitis TAKE 1 CAPSULE BY MOUTH TWICE A DAY 180 Capsule 1 03/05/20 23 Active Omeprazole 20 MG Oral Capsule Delayed Release (PriLOSEC)Indicatio ns:Gastroesophageal reflux disease without esophagitis TAKE 1 CAPSULE BY MOUTH TWICE A DAY 180 Capsule 3 02/19/20 22 023 Discontinued documented as of this encounter (statuses as of 03/05/2023) Active Problems Problem Noted Date Esophageal varices [...] good until Jul 201707/25 MRI brain WNL Vertigo 02/19/2016 Cirrhosis of liver without ascites 02/06 Chronic [...] as of this encounter (statuses as of 03/05/2023) Resolved Problems Problem Noted Date Resolved Date [...] 12/07/2019 Overview: More specific code in use. Breast cancer screening 11/30/2015 10/07/19 19 Vaginitis [...] Coronary atherosclerosis of [place] coronary abdias ry 09/15/2008 10/03/2008 Malaise and [...] as of this encounter (statuses as of 03/05/2023) Immunizations Name Administration Dates Next Due COVID-19 mRNA, LNP-s, No Pre serve, 2-Dose Series (Greenscreen Animals) 11/08/2020,10/11/2020 HEP A - Hepatitis A (Adult > 18 yrs) 04/11/2011, 09/20/2010 Hepatitis B, 20+ yrs 07/05/2015 Pneumococcal Polysaccharide PPV23 (Pneumovax) 02/19/2018,03/09/2007 Seasonal Influenza, PF, 6 mo ns & Above, IM , (Flulaval) 03/01/2021,02/28/2020,03/09/2019,02/19,03/02/2017 Seasonal Influenza, Quadriva lent, No Preserve, IM [...] got money to buy more. Never true 08/24/2019 Within the past 12 months, t he food you bought just didn't last and you didn't have money to get more. Never true 08/24/2019 Sex Assigned at Date Recorded Female 05/08/2020 [...] years old or older) Yes-no license 04/20/20 Cognitive Status Response Date of Assessm ent Because of a physical, menta l, or emotional condition, do you have serious difficulty concentrating, remembering, or making decisions? (5 years old or older No 04/20/2019 documented as of this encounter Miscellaneous Notes * Telephone Encounter - Syed Borja RPh - 03/05/2023 11:09 AM EDT Signed Prescriptions: Disp Refills Omeprazole 20 MG Oral Capsule Delayed Rele*180 Ca*1 Sig: TAKE 1 CAPSULE BY MOUTH TWICE A DAYAuthorizing Provider: SCOTT MONTOYA User: SYED BORJA documented in this encounter Plan of Treatment Upcoming Encounters Date Type Specialty Care Team Description 03/13/2023 Office Visit Family Medicine Scott Montoya MD [address] [place] [address] 03/25/2023 Pharmacy Pharmacy [place] [place] [address] 03/26/2023 Hospital Encounter Endoscopy Aj Pruett, DO [address] [place], [place] [address] 03/26/2023 Surgery Endoscopy Aj Pruett, DO [address] [place], [place] [address] COLONOSCOPY FLEXIBLE PROXIMAL DIAGNOSTIC 04/01/2023 Immunization/Injecti o n Hematology Oncology Nurse, Med [address] [place], [place] [address] 04/13/2023 Telemedicine Psychiatry Rj Mai MD [address] [place] [address] 04/16/2023 Telemedicine [facility] [place] [address] [place] [address] 04/23/2023 Office Visit Neurology Yesenia Wayne PA-C [address] [place], [place] [address] 06/04/2023 Imaging Radiology 08/19/2023 Office Visit Hematology Oncology Sunil Bourgeois MD [address] [place], [place] [address] Scheduled Procedures Name Priority Associated Diagnoses Date/Ti me COLONOSCOPY FLEXIBLE PROXIMAL DIAGNOSTIC Screen for colon cancer 03/26/2023 11:45 AM EDT Health Maintenance Due Date Last Done Comments HPV/Co-Test 2002 Cervical Cancer Screening 04/12/2018 Pap Smear 04/12/2018 04/12/2015, 10/2014, 09/28/2008, Additional history exists Pneumococcal Vaccine: Pediatrics (0 to 5 Years) and At-Risk Patients (6 to 64 Years) (2 - PCV) 02/19/2019 02/19/2018, 03/09/2007 Mammogram 05/07/2019 05/07/2018, 01/21/2016 COLONOSCOPY-EVERY 5 YRS AGES 18-100 06/27/2020 06/27/2015, 06/27/2015, 06/06/2010, Additional history exists COVID-19 Vaccine (3 - Pfizer series) 01/03/2021 11/08/2020, 10/11/2020 Depression Screening 11/01/2021 11/01/2020, 10/01/2016 (Declined) Zoster Vaccines (1 of 2) 2022 Diabetic Foot Exam 10/03/2022 10/03/2021, 0 11/07/2019, 11/03/2018, Additional history exists DIABETES-EYE EXAM 01/16/2023 01/16/2022, , 02/12/2016, Additional history exists Influenza Vaccine (FLU shot) (#1) 2023 03/01/2021, 02/28/2020, 03/09/2019, Additional history exists Albumin/Creatinine Ratio 03/11/2023 022, 11/08/2021, 08/18/2018, Additional history exists B-12 06/11/2023 06/11/2022, 01/0 12/2020, 07/05/2019, Additional history exists HbA1c 08/19/2023 02/18/2023, 01/0 09/2022, 05/03/2022, Additional history exists GFR 12/04/2023 12/03/2022, 01/0 09/2022, 03/11/2022, Additional history exists Lipid Panel 03/11/2027 03/11/2022, 07/0 11/2019, 08/18/2018, Additional history exists DTaP,Tdap,and Td Vaccines (3 - Td or Tdap) 08/05/2028 08/05/2018, 05/15/2008 GARDASIL-HPV IMMUNIZATION SERIES Aged Out No longer eligible based on patient's age to complete this topic MENINGOCOCCAL (MENACTRA/MENVEO) Aged Out No longer eligible based on patient's age to complete this topic documented as of this encounter Medical Devices Implanted Type Area [employer] Worker Device Identifier Shelf Expiration Date Model / Serial / Lot Envelope Tyrx Med Antibacteril - [id number] Implanted:Qty: 1 on 08/22/2022 by Rafia Small MD at OR [facility] N/A: Spine Lumbar [employer] 03/10/2023 [id number] / / [id number] documented as of this encounter Visit Diagnoses Diagnosis Gastroesophageal reflux disease without esophagitis Esophageal reflux Screen for colon cancer Special screening for [...] the patient have Health Care Power of Cardio Clinician? No Code Status History Code Status Date Activated Date Inactivated Comments Full Code 01/21/2011 12:12 PM 01/22/2011 8:48 PM This order reflects the patients wishes and were consensually agreed upon. Question Answer Comments Discussion of Advance Directives occurred with: Patient Does the patient have a Living Will? No Does the patient have Health Care Power of Cardio Clinician? No Care Teams Coo & Co Founder Relationship Specialty Start Date End Date Scott Montoya MD [address] [place] [address] PCP - General Family Medicine 08/03/18 documented as of this encounter
--- OUTSIDE RECORDS SUMMARY | 2023-08-12 09:28 | External Medical Summary | Summary of Care ---
Author Name Unknown Organization [facility] Address [address] [facility] [place] [address] Phone [phone] Care Team Providers Care Product Lister Name Role Phone Scott Montoya MD Primary Care Provider + Reason for Visit * Reason Onset Date Comments Medication Refill 03/09/2023 Encounter Details Date Type Department Care Team Description 03/09/2023 Refill Family Practice [facility] [address] [facility] [place] [address] Nawfa Fernandez, DO [address] [place] [address] Allergies Active Allergy Reactions Severity Noted Date Comments Naproxen Sodium Bleeding High 11/29/2013 Pollen 12/03/2022 Seasonal Food (See Comments) Anaphylaxis High 04/20/2019 Hot peppers (oils) Kiwi Extract Anaphylaxis High 04/20/2019 documented as of this encounter (statuses as of 03/10/2023) Medications Medication Sig Dispensed Refills Start Date [...] (HCC) Use as directed. 0 8 Active Ondansetron HCl 8 MG Oral [...] of less than 8.0% ([facility]),DM type 2, not at goal ([facility]) INJECT UP TO 275 UNITS SUBCUTANEOUSLY [...] suspected opioid overdose. Seek immediate medical attention. [email or web address] 1 Each 3 3 Active Spironolactone 50 [...] SKIN ONCE A WEEK. 4 Patch 0 3 03/09/20 23 Discontinu ed(Refill) documented as of this encounter (statuses as of 03/10/2023) Active Problems Problem Noted Date Esophageal varices [...] as of this encounter (statuses as of 03/10/2023) Resolved Problems Problem Noted Date Resolved Date [...] in use. Breast cancer screening 11/30/2015 10/07/19 Vaginitis 05/18/2015 05/21/2016 Vaginitis 10/18/2014 01/24/2015 Vaginitis [...] Overview: Per Obesity Taxonomy Coronary atherosclerosis of [place] coronary abdias ry 09/15/2008 10/03/2008 Malaise and [...] as of this encounter (statuses as of 03/10/2023) Immunizations Name Administration Dates Next Due COVID-19 mRNA, LNP-s, No Pre serve, 2-Dose Series ([employer]) 11/08/2020,10/11/2020 HEP A - Hepatitis A (Adult > 18 yrs) 04/11/2011, 09/20/2010 Hepatitis B, 20+ yrs 07/05/2015 Pneumococcal Polysaccharide PPV23 (Pneumovax) 02/19/2018,03/09/2007 SEASONAL INFLUENZA, PF, 6 M & Above, IM , (FLULAVAL or FLUZONE) 03/01/2021,02/28/2020,03/09/2019,02/19,03/02/2017 Seasonal Influenza, Quadriva lent, No Preserve, [...] Telephone Encounter - Scott Montoya MD - 03/10/2023 10:34 PM EDTSigned Prescriptions: Disp Refills Buprenorphine 5 MCG/HR Transdermal Patch W*4 Patch0 Sig: Place 1 Patch topically on the skin once a week. Authorizing Provider: SCOTT MONTOYA * Telephone Encounter - Eulalia Narayanan RPh - 03/10/2023 11:55 AM EDT Pending Prescriptions: Disp Refills Buprenorphine 5 MCG/HR Transdermal Patch W*4 Patch0 Sig: Place 1 Patch topically on the skin once a week. * Telephone Encounter - Eulalia Narayanan [facility] - 03/10/2023 11:54 AM EDT I have reviewed the patients controlled substance dispensing history in the Prescription Drug Monitoring Program in compliance with the [facility] regulations before prescribing a controlled substance. PDMP checked on 03/10/2023. Pending Prescriptions: Disp Refills Buprenorphine 5 MCG/HR Transdermal Patch *4 Patch0 Sig: Place 1 Patch topically on the skin once a week. Last Visit: 12/04/2021 (in office), 09/08/2022 (telemedicine) Next Visit: 03/13/2023 Date medication was last filled: 02/10/23 Date medication is due for refill: 03/11/23 Pharmacy: [id number] [address] Is this request for a controlled substance? [...] in Results Review. Please approve if appropriate. Thank You Eulalia Narayanan PharmD Clinical Pharmacist [facility]ized Clinical [facility]acy Services ([facility]PS) (formerly Telepharmacy) [phone] / [phone] 03/10/2023, 11:54 AM documented in this encounter Plan of Treatment Upcoming Encounters Date Type Specialty Care Team Description 03/13/2023 Office Visit Family Medicine Scott Montoya MD [address] [facility] [place] [address] 03/25/[address] [address] 03/26/2023 Hospital Encounter Endoscopy Aj Pruett, DO [address] [place] [address] 03/26/2023 Surgery Endoscopy Aj Pruett, DO [address] [place] [address] COLONOSCOPY FLEXIBLE PROXIMAL DIAGNOSTIC 04/01/2023 Immunization/Injecti o n Hematology Oncology Nurse, Med [address] [place] [address] [address] 04/13/2023 Telemedicine Psychiatry Rj Mai MD [address] [place] [address] 04/16/2023 Telemedicine Pharmacy [facility] [place] [address] [place] [address] 05/19/2023 Office Visit Neurology Monica Shrestha MD [address] [place] [address] [address] 06/04/2023 Imaging Radiology 08/19/2023 Office Visit Hematology Oncology Sunil Bourgeois MD [address] [place] [address] [address] Scheduled Procedures Name Priority Associated Diagnoses Date/Ti me COLONOSCOPY FLEXIBLE PROXIMAL DIAGNOSTIC Screen for colon cancer 03/26/2023 11:45 AM EDT Health Maintenance Due Date Last Done Comments HPV/Co-Test 2002 Cervical Cancer Screening 04/12/2018 Pap Smear 04/12/2018 04/12/2015, 1110/2014, 09/28/2008, Additional history exists Pneumococcal Vaccine: Pediatrics (0 to 5 Years) and At-Risk Patients (6 to 64 Years) (2 - PCV) 02/19/2019 02/19/2018, 03/09/2007 Mammogram 05/07/2019 05/07/2018, 01/21/2016 COLONOSCOPY-EVERY 5 YRS AGES 18-100 06/27/2020 06/27/2015, 06/27/2015, 06/06/2010, Additional history exists Depression Screening 11/01/2021 11/01/2020, 10/01/2016 (Declined) Zoster Vaccines (1 of 2) 2022 Diabetic Foot Exam 10/03/2022 10/03/2021, 0 11/07/2019, 11/03/2018, Additional history exists DIABETES-EYE EXAM 01/16/2023 01/16/2022, , 02/12/2016, Additional history exists COVID-19 Vaccine ( season) 2023 11/08/2020, 10/11/2020 Influenza Vaccine (FLU shot) (#1) 2023 03/01/2021, 02/28/2020, 03/09/2019, Additional history exists Albumin/Creatinine Ratio 03/11/[address] 022, 11/08/2021, 08/18/2018, Additional [...] this encounter Medical Devices Implanted Type Area Service Order Clerk Device Identifier Shelf Expiration Date Model / Serial / Lot Envelope Tyrx Med Antibacteril - [id number] Implanted:Qty: 1 on 08/22/2022 by Rafia Small MD at OR [facility] N/A: Spine Lumbar [employer] 03/10/2023 [id number] / / [id number] documented as of this encounter Advance Directives [...] the patient have Health Care Power of Certified Ophthalmic Technician? No Code Status History Code Status Date Activated Date Inactivated Comments Full Code 01/21/2011 12:12 PM 01/22/2011 8:48 PM This order reflects the patients wishes and were consensually agreed upon. Question Answer Comments Discussion of Advance Directives occurred with: Patient Does the patient have a Living Will? No Does the patient have Health Care Power of Certified Ophthalmic Technician? No Care Teams Product Lister Relationship Specialty Start Date End Date Scott Montoya MD [address] [place] [address] PCP - General Family Medicine 08/03/18 documented as of this encounter
--- OUTSIDE RECORDS SUMMARY | 2023-08-12 09:28 | External Medical Summary | Summary of Care ---
Author Name Unknown Organization [facility] Address [address] [place] [address] Phone [phone] Care Team Providers Care Rip Sawyer Name Role Phone Scott Weldon MD Primary Care Provider + Reason for Visit * Reason Comments Appointment Encounter Details Date Type Department Care Team Description 02/25/2023 Pharmacy Pharmacy, [place] [address] [place] [address] [facility] [address] [place] [address] Type 2 diabetes mellitus with hemoglobin A1c goal of less than 8.0% ([facility])* Allergies Active Allergy Reactions Severity Noted Date Comments Naproxen Sodium Bleeding High 11/29/2013 Pollen 12/03/2022 Seasonal Food (See Comments) Anaphylaxis High 04/20/2019 Hot peppers (oils) Kiwi Extract Anaphylaxis High 04/20/2019 documented as of this encounter (statuses as of 02/25/2023) Medications Medication Sig Dispensed Refills Start Date End Date Status ONETOUCH ULTRASOFT LANCETS MISCIndications:DM type 2, not at goal ([facility]) check FS 6 times daily 4 Box [...] Dosing Unit 3 6 Active Glucose Blood ([employer] CONTOUR NEXT TEST) STRP Use to [...] for nausea 30 Tablet 0 2 Active Omeprazole 20 MG Oral Capsule Delayed Release (PriLOSEC)Indication s:Gastroesophageal reflux disease without esophagitis TAKE 1 CAPSULE BY MOUTH TWICE A DAY 180 Capsule 3 2 Active Atenolol 100 MG Oral Tablet [...] suspected opioid overdose. Seek immediate medical attention. [email or web address] 1 Each 3 3 Active [...] OF BREATH 18 g 1 3 Active Buprenorphine 5 MCG/HR Transdermal Patch Weekly (Butrans) PLACE 1 PATCH TOPICALLY ON THE SKIN ONCE A WEEK. 4 Patch 0 3 Active Baclofen 10 MG Oral Tablet (Lioresal)Indication s:muscle spasms Take 1 Tablet by mouth 3 times a day as needed for Muscle spasms. 90 Tablet 5 3 Active documented as of this encounter (statuses as of 02/25/2023) Active Problems Problem Noted Date Esophageal varices [...] care 12/23/2019 Severe obesity (BMI 35.0-39.9) with eilas rbidity 11/07/2019 Diabetic polyneuropathy associated with type [...] as of this encounter (statuses as of 02/25/2023) Resolved Problems Problem Noted Date Resolved Date [...] 03/09/2019 06/09/2019 Malignant neoplasm of liver 02/04/2019 02/0 07/2020 Obesity, Class III, BMI 40-49.9 (morbid obesity) [...] Obesity Taxonomy Coronary atherosclerosis of [place] coronary abdias ry 09/15/2008 10/03/2008 Malaise and [...] as of this encounter (statuses as of 02/25/2023) Immunizations Name Administration Dates Next Due COVID-19 [...] as of this encounter Progress Notes * SANTIAGO Pack - 02/25/2023 9:13 AM EDT Patient Phone Numbers Attempted to leave a message on patients answering machine to schedule [facility] appointment for DM management. VM was full and could not leave a message. [facility] message sent --no Clinic will follow up again in 4 week(s). [Attempt # 1] Mayra Mares [facility] Pharmacy Services ([facility]PS) (Formerly Telepharmacy) 02/25/2023, 9:13 AM documented in this encounter Plan of Treatment Upcoming Encounters Date Type Specialty Care Team Description 03/13/2023 Office Visit Family Medicine Scott Weldon MD [address] [place] [address] 03/25/2023 Pharmacy Pharmacy [place] [address] [place] [address] [place] [address] 03/26/2023 Hospital Encounter Endoscopy Aj Pruett, DO [address] [place] [address] 03/26/2023 Surgery Endoscopy Aj Pruett, DO [address] [place] [address] COLONOSCOPY FLEXIBLE PROXIMAL DIAGNOSTIC 04/01/2023 Immunization/Injecti o n Hematology Oncology Nurse, Med [address] [place] [address] 04/13/2023 Telemedicine Psychiatry Rj Mai MD [address] [place] [address] 04/16/2023 Telemedicine Pharmacy [facility] [place] [address] [place] [address] 04/23/2023 Office Visit Neurology Yesenia Wayne PA-C [address] [place] [address] 08/19/2023 Office Visit Hematology Oncology Sunil Bourgeois MD [address] [place] [address] Scheduled Procedures Name Priority Associated Diagnoses Date/Ti [...] - Td or Tdap) 08/05/2028 08/05/2018, 05/15/2008 Hepatitis C Screening Completed 11/08/2021 , 11/08/2021, 11/08/2021, Additional history exists GARDASIL-HPV IMMUNIZATION SERIES Aged Out No longer eligible based on patient's age to complete this topic MENINGOCOCCAL (MENACTRA/MENVEO) Aged Out No longer eligible based on patient's age to complete this topic documented as of this encounter Medical Devices Implanted Type Area Hemodialysis Charge Nurse Device Identifier Shelf Expiration Date Model / Serial / Lot Envelope Tyrx Med Antibacteril - [id number] Implanted:Qty: 1 on 08/22/2022 by Rafia Small MD at OR [facility] N/A: Spine Lumbar [employer] 03/10/2023 [id number] / / [id number] documented as of this encounter Visit Diagnoses [...] patient have Health Care Power of Clinical Engineer? No Code Status History Code Status Date Activated Date Inactivated Comments Full Code 01/21/2011 12:12 PM 01/22/2011 8:48 PM This order reflects the patients wishes and were consensually agreed upon. Question Answer Comments Discussion of Advance Directives occurred with: Patient Does the patient have a Living Will? No Does the patient have Health Care Power of Clinical Engineer? No Care Teams Rip Sawyer Relationship Specialty Start Date End Date Scott Weldon MD [address] [place] [address] PCP - General Family Medicine 08/03/18 documented as of this encounter
--- OUTSIDE RECORDS SUMMARY | 2023-08-12 09:28 | External Medical Summary | Summary of Care ---
Author Name Unknown Organization [facility] Address [address] [facility] [place] [address] Phone [phone] Care Team Providers Care Code Inspector Name Role Phone Scott Weldon MD Primary Care Provider + Reason for Visit * Reason Onset Date Comments Advice 03/24/2023 Encounter Details Date Type Department Care Team Description 03/24/2023 Telephone OR [facility], Operating Room [facility] [address] [place] [id number] Aj Pruett, [address] [place] [address] Advice Allergies Active Allergy Reactions Severity Noted [...] 5 06/15/19 18 Active Insulin Infusion Pump (MINIMRSB SPINE 630G INSULIN PUMP) KITIndications:Type 2 diabetes mellitus [...] suspected opioid overdose. Seek immediate medical attention. [email or web address]?[email or web address] 1 Each 3 11/28/19 23 Active Spironolactone [...] Overview: Per Obesity Taxonomy Coronary atherosclerosis of [place] coronary abdias ry 09/15/2008 10/03/2008 Malaise and [...] yrs 07/05/2015 Pneumococcal Conjugate Vacci ne, 20-valent ([id number]) 03/13/2023 Pneumococcal Polysaccharide PPV23 (Pneumovax) 02/19/2018,03/09/2007 SEASONAL [...] encounter Miscellaneous Notes * Telephone Encounter - Aj Pruett DO - 03/24/2023 12:57 PM EDT Zofran 4 mg sent to pharmacy. Would suggest use of a dose 1 hour prior to each part of the bowel prepaation. * Telephone Encounter - DONAN Skelton - 03/24/2023 10:22 AM EDT Colon taylor'd to 07/29 tamika/ Flynn Pt requesting Reglan script be sent to [facility]. * Telephone Encounter - Leonarda Mccabe RN [...] Care Team Description 03/27/2023 Office Visit Pharmacy [address] [address] 04/01/2023 Immunization/Injecti o n Hematology Oncology Nurse, Med 4 [address] [facility] [place], [place] [address] 04/06/2023 Office Visit General Surgery Mariano Billingsley MD [address] [place] [address] 04/13/2023 Telemedicine Psychiatry Rj Mai MD [address] [place], [place] [id number] 04/16/2023 Telemedicine Pharmacy [facility] [address] [place] [address] 05/19/2023 Office Visit Neurology Monica Shrestha MD [address] [facility] [place], [place] [address] 06/04/2023 Imaging Radiology 07/29/2023 Hospital Encounter Endoscopy Aj Pruett, DO [address] [place] [address] 07/29/2023 Surgery Endoscopy Aj Pruett, DO [address] [place] [address] COLONOSCOPY FLEXIBLE PROXIMAL DIAGNOSTIC 08/19/2023 Office Visit Hematology Oncology Sunil Bourgeois MD [address] [place] [address] Scheduled Procedures Name Priority Associated Diagnoses Date/Ti [...] this encounter Medical Devices Implanted Type Area Mail Handler Sorter Device Identifier Shelf Expiration Date Model / Serial / Lot Envelope Tyrx Med Antibacteril - [id number] Implanted:Qty: 1 on 08/22/2022 by Rafia Small MD at OR [facility] N/A: Spine Lumbar [employer] 03/10/2023 [id number] / / [id number] documented as of this encounter Advance Directives [...] the patient have Health Care Power of Data Officer? No Code Status History Code Status Date Activated Date Inactivated Comments Full Code 01/21/2011 12:12 PM 01/22/2011 8:48 PM This order reflects the patients wishes and were consensually agreed upon. Question Answer Comments Discussion of Advance Directives occurred with: Patient Does the patient have a Living Will? No Does the patient have Health Care Power of Data Officer? No Care Teams Code Inspector Relationship Specialty Start Date End Date Scott Weldon MD [address] [place] [address] PCP - General Family Medicine 08/03/18 documented as of this encounter
--- OUTSIDE RECORDS SUMMARY | 2023-08-12 09:28 | External Medical Summary | Summary of Care ---
Author Name Unknown Organization [facility] Address [address] [place] [address] Phone [phone] Care Team Providers Care Stove Mechanic Name Role Phone Scott Weldon MD Primary Care Provider + Encounter Details Date Type Department Care Team Description 03/12/2023 Orders Only Outcomes Research Department [address] [place], [place] [id number] Jill Duarte CHRA MyCode Research Other*[id number] Allergies Active Allergy Reactions Severity Noted Date Comments Naproxen Sodium Bleeding High 11/29/2013 Pollen 12/03/2022 Seasonal Food (See Comments) Anaphylaxis High 04/20/2019 Hot peppers (oils) Kiwi Extract Anaphylaxis High 04/20/2019 documented as of this encounter (statuses as of 03/12/2023) Medications Medication Sig Dispensed Refills Start Date [...] Each 5 8 Active Insulin Infusion Pump (MINIM[employer] 630G INSULIN PUMP) KITIndications:Type 2 diabetes mellitus [...] [facility]),DM type 2, not at goal (HCC) INJECT [...] goal of less than 8.0% ([facility]) Inject 1 mg under the [...] as of this encounter (statuses as of 03/12/2023) Active Problems Problem Noted Date Esophageal varices [...] as of this encounter (statuses as of 03/12/2023) Resolved Problems Problem Noted Date Resolved Date [...] pain 01/21/2011 08/19/2012 OBESITY, BMI= 35.49 12/30/10 12/30/2010/09/2012 OBSTIPATION 12/30/2010 03/22/2013 Edema 12/30/2010 09/12/2019 Overview: [...] Overview: Per Obesity Taxonomy Coronary atherosclerosis of [place] coronary abdias ry 09/15/2008 10/03/2008 Malaise and [...] as of this encounter (statuses as of 03/12/2023) Immunizations Name Administration Dates Next Due COVID-19 mRNA, LNP-s, No Pre serve, 2-Dose Series ([employer]) 11/08/2020,10/11/2020 HEP A - Hepatitis A (Adult [...] Family Medicine Scott Weldon MD [address] [place] [address] 03/26/2023 Hospital Encounter Endoscopy Aj Pruett, DO [address] [place] [address] 03/26/2023 Surgery Endoscopy Aj Pruett, DO [address] [place] [address] COLONOSCOPY FLEXIBLE PROXIMAL DIAGNOSTIC 03/27/2023 Office Visit Pharmacy [place] [address] [place] [address] 04/01/2023 Immunization/Injecti o n Hematology Oncology Nurse, [facility] [address] [place] [address] 04/13/2023 Telemedicine Psychiatry Rj Mai MD [address] [place] [address] 04/16/2023 Telemedicine Pharmacy [facility] [address] [place] [address] 05/19/2023 Office Visit Neurology Monica Shrestha MD [address] [place] [address] 06/04/2023 Imaging Radiology 08/19/2023 Office Visit Hematology Oncology Sunil Bourgeois MD 200 [place] [address] Scheduled Orders Name Type Priority Associated Diagnoses Orde r Schedule MYCODE SUBSEQUENT ADULT Lab Routine MyCode Research Other*[id number] Every 6 Months for 2 Occurrences starting 03/12/2023 until 03/31/2024 Scheduled Procedures Name Priority Associated Diagnoses Date/Ti [...] (3 - 2022- season) 2023 11/08/2020, 10/11/2020 Influenza Vaccine (FLU shot) (#1) 2023 03/01/2021, 02/28/2020, 03/09/2019, Additional history exists Albumin/Creatinine Ratio 03/11/202303/11/ 022, 11/08/2021, 08/18/2018, Additional history exists B-12 06/11/2023 06/11/2022, 0 12/2020, 07/05/2019, Additional history exists HbA1c 08/19/2023 02/18/2023, 0 09/2022, 05/03/2022, Additional history exists GFR 12/04/2023 12/03/2022, 0 09/2022, 03/11/2022, Additional history exists Lipid Panel [...] this encounter Medical Devices Implanted Type Area Window Glass Installer Device Identifier Shelf Expiration Date Model / Serial / Lot Envelope Tyrx Med Antibacteril - [id number] Implanted:Qty: 1 on 08/22/2022 by Rafia Small MD at OR [facility] N/A: Spine Lumbar [employer] 03/10/2023 [id number] / / [id number] documented as of this encounter Visit Diagnoses Diagnosis MyCode Research Other*[id number] Screen for colon cancer Special screening for [...] the patient have Health Care Power of Jigger Operator? No Code Status History Code Status Date Activated Date Inactivated Comments Full Code 01/21/2011 12:12 PM 01/22/2011 8:48 PM This order reflects the patients wishes and were consensually agreed upon. Question Answer Comments Discussion of Advance Directives occurred with: Patient Does the patient have a Living Will? No Does the patient have Health Care Power of Jigger Operator? No Care Teams Stove Mechanic Relationship Specialty Start Date End Date Scott Weldon MD [address] [place] [address] PCP - General Family Medicine 08/03/18 documented as of this encounter
--- OUTSIDE RECORDS SUMMARY | 2023-08-12 09:29 | External Medical Summary | Summary of Care ---
Author Name Unknown Organization [facility] Address [address] [facility] [place] [address] Phone [phone] Care Team Providers Care Steam Box Operator Name Role Phone Scott Weldon MD Primary Care Provider + Reason for Visit * Reason Onset Date Comments Follow Up 02/20/2023 Encounter Details Date Type Department Care Team Description 02/20/2023 Telephone Family Practice [facility] [address] [facility] [place] [address] Scott Weldon MD [address] [facility] [place] [address] Follow Up Allergies Active Allergy Reactions Severity Noted Date [...] hemoglobin A1c goal of less than 8.0% ([facility]),DM type 2, not at goal ([facility]) INJECT UP TO 275 UNITS SUBCUTANEOUSLY [...] hemoglobin A1c goal of less than 8.0% ([facility]) Inject 1 mg under the skin [...] suspected opioid overdose. Seek immediate medical attention. [email or web address]?v=v26cDa [email or web address] 1 Each 3 3 Active [...] Overview: Per Obesity Taxonomy Coronary atherosclerosis of [place] coronary abdias ry 09/15/2008 10/03/2008 Malaise and [...] Telephone Encounter - Kathie Soares LPN - 02/25/2023 8:35 AM EDT Form completed and faxed back to [facility]. * Telephone Encounter - Kathie Soares LPN - 02/24/2023 12:22 PM EDT Fax received. Will fax once signed. * Telephone Encounter - Kathie Soares LPN - 02/23/2023 8:36 AM EDT Will watch for fax * Telephone Encounter - DONNA Morgan - 02/20/2023 9:44 AM EDT Jeremias lundberg/ [employer] calling re: diabetic testing supplies. He faxed a DWO on 02/13. I don't see any record that this was recv'd, so he will refax it this AM to [phone]. Pls have PCP sign DWO once recv'd. Ty. documented in this encounter Plan of Treatment Upcoming Encounters Date Type Specialty Care Team Description 02/25/2023 Pharmacy Pharmacy [place] [address] [facility] [place] [address] 03/13/2023 Office Visit Family Medicine Scott Weldon MD [address] [place], [place] [address] 03/26/2023 Hospital Encounter Endoscopy Aj Pruett, DO [address] [place] [address] 03/26/2023 Surgery Endoscopy Aj Pruett, DO [address] [place] [address] COLONOSCOPY FLEXIBLE PROXIMAL DIAGNOSTIC 04/01/2023 Immunization/Injecti o n Hematology Oncology Nurse, Med [address] [place] [address] [address] 04/13/2023 Telemedicine Psychiatry Rj Mai MD [address] [place] [address] 04/16/2023 Telemedicine [facility] [address] [place] [address] 04/23/2023 Office Visit Neurology Yesenia Wayne PA-C [address] [place] [address] [address] 08/19/2023 Office Visit Hematology Oncology Sunil Bourgeois MD [address] [place] [address] [address] Scheduled Procedures Name Priority Associated Diagnoses Date/Ti [...] 12/03/2022, 010 09/2022, 03/11/2022, Additional history exists Lipid Panel [...] this encounter Medical Devices Implanted Type Area Echo Vascular Tech Device Identifier Shelf Expiration Date Model / Serial / Lot Envelope Tyrx Med Antibacteril - [id number] Implanted:Qty: 1 on 08/22/2022 by Rafia Small MD at OR [facility] N/A: Spine Lumbar [employer] 03/10/2023 [id number] / / [id number] documented as of this encounter Advance Directives [...] the patient have Health Care Power of Utility Forester? No Code Status History Code Status Date Activated Date Inactivated Comments Full Code 01/21/2011 12:12 PM 01/22/2011 8:48 PM This order reflects the patients wishes and were consensually agreed upon. Question Answer Comments Discussion of Advance Directives occurred with: Patient Does the patient have a Living Will? No Does the patient have Health Care Power of Utility Forester? No Care Teams Steam Box Operator Relationship Specialty Start Date End Date Scott Weldon MD [address] [place] [address] PCP - General Family Medicine 08/03/18 documented as of this encounter
--- OUTSIDE RECORDS SUMMARY | 2023-08-12 09:29 | External Medical Summary | Summary of Care ---
Author Name Unknown Organization [facility] Address [address] [facility] [place] [address] Phone [phone] Care Team Providers Care Instructional Technology Director Name Role Phone Scott Weldon MD Primary Care Provider + Reason for Visit * Reason Onset Date Comments Follow Up 02/20/2023 Encounter Details Date Type Department Care Team Description 02/20/2023 Telephone Family Practice [facility] [address] [facility] [place] [address] Scott Weldon MD 132 [facility] [place] [address] Follow Up Allergies Active Allergy Reactions Severity Noted Date Comments Naproxen Sodium Bleeding High 11/29/2013 Pollen 12/03/2022 Seasonal Food (See Comments) Anaphylaxis High 04/20/2019 Hot peppers (oils) Kiwi Extract Anaphylaxis High 04/20/2019 documented as of this encounter (statuses as of 02/24/2023) Medications Medication Sig Dispensed Refills Start Date [...] hemoglobin A1c goal of less than 8.0% ([facility]),DM type 2, not at goal ([facility]) INJECT UP TO 275 UNITS [...] hemoglobin A1c goal of less than 8.0% ([facility]) Inject 1 mg under the [...] suspected opioid overdose. Seek immediate medical attention. [email or web address]://www.youDigital [email or web address] [email or web address]/watch?v=v26cDa [email or web address] 1 Each 3 3 Active [...] as of this encounter (statuses as of 02/24/2023) Active Problems Problem Noted Date Esophageal varices [...] as of this encounter (statuses as of 02/24/2023) Resolved Problems Problem Noted Date Resolved Date [...] Overview: Per Obesity Taxonomy Coronary atherosclerosis of [place] coronary abdias ry 09/15/2008 10/03/2008 Malaise and [...] as of this encounter (statuses as of 02/24/2023) Immunizations Name Administration Dates Next Due COVID-19 [...] - 02/20/2023 9:44 AM EDT Jeremias lundberg/ [employer] calling re: diabetic testing supplies. He faxed a DWO on 02/13. I don't see any record that this was recv'd, so he will refax it this AM to [phone]. Pls have PCP sign DWO once recv'd. Ty. documented in this encounter Plan of Treatment Upcoming Encounters Date Type Specialty Care Team Description 02/25/2023 Pharmacy Pharmacy [address] [address] 03/13/2023 Office Visit Family Medicine Scott Weldon MD [address] [facility] [place] [address] 03/26/2023 Hospital Encounter Endoscopy Aj Pruett, DO [address] [place] [address] 03/26/2023 Surgery Endoscopy Aj Pruett, DO [address] [place] [address] COLONOSCOPY FLEXIBLE PROXIMAL DIAGNOSTIC 04/01/2023 Immunization/Injecti o n Hematology Oncology Nurse, Med 4 [address] [facility] [place] [address] 04/13/2023 Telemedicine Psychiatry Rj Mai MD [address] [place] [address] 04/16/2023 Telemedicine [facility] [address] [place] [address] 04/23/2023 Office Visit Neurology Yesenia Wayne PA-C [address] [facility] [place] [address] 08/19/2023 Office Visit Hematology Oncology Sunil Bourgeois MD [address] [facility] [place] [address] Scheduled Procedures Name Priority Associated Diagnoses Date/Ti [...] this encounter Medical Devices Implanted Type Area Scrap Shear Operator Device Identifier Shelf Expiration Date Model / Serial / Lot Envelope Tyrx Med Antibacteril - [id number] Implanted:Qty: 1 on 08/22/2022 by Rafia Small MD at OR [facility] N/A: Spine Lumbar [employer] 03/10/2023 [id number] / / [id number] documented as of this encounter Advance Directives [...] the patient have Health Care Power of Target Setter? No Code Status History Code Status Date Activated Date Inactivated Comments Full Code 01/21/2011 12:12 PM 01/22/2011 8:48 PM This order reflects the patients wishes and were consensually agreed upon. Question Answer Comments Discussion of Advance Directives occurred with: Patient Does the patient have a Living Will? No Does the patient have Health Care Power of Target Setter? No Care Teams Instructional Technology Director Relationship Specialty Start Date End Date Scott Weldon MD [address] [place] [address] PCP - General Family Medicine 08/03/18 documented as of this encounter
--- OUTSIDE RECORDS SUMMARY | 2023-08-12 09:29 | External Medical Summary | Summary of Care ---
Author Name Unknown Organization [facility] Address [address] [facility] [place] [address] Phone [phone] Care Team Providers Care Web Press Operator Apprentice Name Role Phone Scott Weldon MD Primary Care Provider + Reason for Visit * Reason Onset Date Comments Follow Up 02/20/2023 Encounter Details Date Type Department Care Team Description 02/20/2023 Telephone Family Practice [facility] 132 [facility] [place] [address] Scott Weldon MD 132 [facility] [place] [address] Follow Up Allergies Active Allergy Reactions Severity Noted Date Comments Naproxen Sodium Bleeding High 11/29/2013 Pollen 12/03/2022 Seasonal Food (See Comments) Anaphylaxis High 04/20/2019 Hot peppers (oils) Kiwi Extract Anaphylaxis High 04/20/2019 documented as of this encounter (statuses as of 02/23/2023) Medications Medication Sig Dispensed Refills Start Date [...] hemoglobin A1c goal of less than 8.0% ([facility]),DM type 2, not at goal ([facility]) INJECT UP TO 275 UNITS [...] hemoglobin A1c goal of less than 8.0% ([facility]) Inject 1 mg under the [...] suspected opioid overdose. Seek immediate medical attention. [email or web address]://[email or web address]-[email or web address]/watch?v=v26cDa [email or web address] 1 Each 3 3 Active [...] as of this encounter (statuses as of 02/23/2023) Active Problems Problem Noted Date Esophageal varices [...] as of this encounter (statuses as of 02/23/2023) Resolved Problems Problem Noted Date Resolved Date [...] Overview: Per Obesity Taxonomy Coronary atherosclerosis of [place] coronary abdias ry 09/15/2008 10/03/2008 Malaise and [...] as of this encounter (statuses as of 02/23/2023) Immunizations Name Administration Dates Next Due COVID-19 [...] - 02/20/2023 9:44 AM EDT Jeremias lundberg/ [employer] calling re: diabetic testing supplies. He faxed a DWO on 02/13. I don't see any record that this was recv'd, so he will refax it this AM to [phone]. Pls have PCP sign DWO once recv'd. Ty. documented in this encounter Plan of Treatment Upcoming Encounters Date Type Specialty Care Team Description 02/25/2023 Pharmacy Pharmacy [facility] [address] [facility] [address] 03/13/2023 Office Visit Family Medicine Scott Weldon MD [address] [place] [address] 03/26/2023 Hospital Encounter Endoscopy Aj Pruett DO [address] [place] [address] 03/26/2023 Surgery Endoscopy Aj Pruett DO [address] [place] [address] COLONOSCOPY FLEXIBLE PROXIMAL DIAGNOSTIC 04/01/2023 Immunization/Injecti o n Hematology Oncology Nurse, Med [address] [place] [address] 04/13/2023 Telemedicine Psychiatry Rj Mai MD [address] [place], [place] [address] 04/16/2023 Telemedicine Pharmacy [facility] [address] [place] [address] 04/23/2023 Office Visit Neurology Yesenia Wayne PA-C [address] [place] [address] 08/19/2023 Office Visit Hematology Oncology Sunil Bourgeois MD [address] [place] [address] Scheduled Procedures Name Priority Associated Diagnoses Date/Ti [...] this encounter Medical Devices Implanted Type Area Extension Service Advisor Device Identifier Shelf Expiration Date Model / Serial / Lot Envelope Tyrx Med Antibacteril - [id number] Implanted:Qty: 1 on 08/22/2022 by Rafia Small MD at OR [facility] N/A: Spine Lumbar [employer] 03/10/2023 [id number] / / [id number] documented as of this encounter Advance Directives [...] the patient have Health Care Power of Land Planner? No Code Status History Code Status Date Activated Date Inactivated Comments Full Code 01/21/2011 12:12 PM 01/22/2011 8:48 PM This order reflects the patients wishes and were consensually agreed upon. Question Answer Comments Discussion of Advance Directives occurred with: Patient Does the patient have a Living Will? No Does the patient have Health Care Power of Land Planner? No Care Teams Web Press Operator Apprentice Relationship Specialty Start Date End Date Scott Weldon MD [address] [place] [address] PCP - General Family Medicine 08/03/18 documented as of this encounter
--- OUTSIDE RECORDS SUMMARY | 2023-08-12 09:30 | External Medical Summary | Summary of Care ---
Author Name Unknown Organization [facility] Address [address] [facility] [place] [address] Phone [phone] Care Team Providers Care Signaler Name Role Phone Scott Weldon MD Primary Care Provider + Reason for Visit * Reason Comments Follow Up 6m Encounter Details Date Type Department Care Team Description 02/18/2023 Office Visit Hematology/Oncology [facility] [place] [address] [facility] [place] [address] Sunil Bourgeois MD [address] [facility] [place] [address] Other iron deficiency anemia* Allergies Active Allergy Reactions Severity Noted Date Comments Naproxen Sodium Bleeding High 11/29/2013 Pollen 12/03/2022 Seasonal Food (See Comments) Anaphylaxis High 04/20/2019 Hot peppers (oils) Kiwi Extract Anaphylaxis High 04/20/2019 documented as of this encounter (statuses as of 02/18/2023) Medications Medication Sig Dispensed Refills Start Date [...] as of this encounter (statuses as of 02/18/2023) Active Problems Problem Noted Date Esophageal varices [...] as of this encounter (statuses as of 02/18/2023) Resolved Problems Problem Noted Date Resolved Date [...] Per Obesity Taxonomy Coronary atherosclerosis of [place] coronary abdias ry 09/15/2008 10/03/2008 Malaise [...] as of this encounter (statuses as of 02/18/2023) Immunizations Name Administration Dates Next Due COVID-19 mRNA, LNP-s, No Pre serve, 2-Dose Series ([employer]) 11/08/2020,10/11/2020 HEP A - Hepatitis A (Adult [...] Sign Reading Time Taken Comments Blood Pressure 124/77 02/18/2023 1:34 PM EDT Pulse 96 02/18/2023 1:34 PM EDT Temperature 36.6 C (97.9 F) 02/18/2023 1:34 PM ED T Respiratory Rate 16 02/18/2023 1:34 PM EDT Oxygen Saturation 91% 02/18/2023 1:34 PM EDT Inhaled Oxygen Concentration - - Weight 107.1 kg (236 lb 3.2 oz) 02/18/2023 1:34 PM EDT Height - - Body Mass Index 38.69 10/09/2022 8:51 AM EDT documented in this encounter Functional Status [...] as of this encounter Progress Notes * Sunil Bourgeois MD - 02/18/2023 1:45 PM EDT Hematology/Oncology Outpatient Clinic note [facility] [address] [place] [address] Name: Carmen Tyson Date: 10/12/2020 CHIEF COMPLAINT: Carmen Tyson is a 52 year old female patient here today for f/u visit. DIAGNOSIS: Iron deficiency anemia -cirrhosis of liver, portal Hypertension, splenomegaly causing mild thrombocytopenia, she has esophageal varices which may be causing intermittent the upper GI bleed. -she had a uterine ablation several years back, no menstrual period since then. CURRENT TREATMENT: Observation. Could not tolerate oral iron treatment. -will check CBCD of Ferritin, iron profile every 3 monthly Port flush every 6 weekly PREVIOUS TREATMENT: -No blood transfusion the past. -IV iron the form of Venofer x4 between 01/19/2020-02/2020. - Venofer x4 between 08/18/2022 -09/29/2022. DIAGNOSTIC WORKUP: I reviewed her blood workup done over the last several years, earlier in 2018, Hemoglobin level wasslightly on the lower side around 11.5 g/dL, Platelet count is between 100,000-140,000 range. Diagnosed a case of cirrhosis of liver, she had several imaging studies done at [facility], no ETOH abuse, imaging study showed hepatomegaly and splenomegaly, spleen size measuring on 14 cm. She denies any obvious bleeding from any sites, has not seen any black stool. Presently she is not on any oral iron replacement therapy. She has several other comorbid conditions. -Ferritin level --> 16.2, Serum iron 58, TIBC 378, iron saturation 15% (12/12/2019) -Absolute reticulocyte count --> 74,000 Upper GI endoscopy done about a year back showed evidence of esophageal varices. OTHER IMPORTANT HISTORY: -Diabetes mellitus, nowadays she is on insulin pump -history of CV stroke, left sided weakness, 2012, ambulates with the help of the cane. -possible diabetic retinopathy High chronic back pain, she gets local injection periodically. -she has left-sided port perhaps since 2012, she has poor venous access. - cirrhosis of liver, nonalcoholic steatohepatitis. -seizure disorder. Presently she is not driving HISTORY OF PRESENT ILLNESS: She has come the clinic for the follow-up, she says that she is feeling weak and tired,she had a MRI of the liver, overall stable findings of cirrhosis, no focal liver lesion noted, splenomegaly noted, denies any new bleeding complications, , no blood in the stool. Some nausea present. She has underlying gastroparesis current weight 236 lb. Ambulates with the help of the cane. Stable left-sided weakness Past Medical History: Diagnosis Date Abdominal pain, generalized 09/08/2012 Ascites 09/08/2012 ASCVD (arteriosclerotic cardiovascular disease) Benign neoplasm of stomach 07/27/12 fundic polyp-repeat EGD in 1 yr Bipolar I disorder, most recent episode depressed, moderate (HCC) Dr Zoraida Hidalgo Chronic pain syndrome 11/28/2015 Cirrhosis of liver without ascites (HCC) 02/07/2016 Diabetes mellitus with background retinopathy (HCC) 12/24/2019 2020 telemed images, mild DM type 2, not at goal (HCC) 03/05/10 Encounter for care related to vascular access port 01/21/2018 Gastroparesis 09/10/2017 History of 2019 novel coronavirus disease (COVID-19) 09/03/2020 HTN, goal below 130/80 03/05/10 Insomnia, unspecified Insulin pump in place 05/05/2017 Kidney stone 2012 x 2 Left hemiplegia (HCC) 10/06/2018 Liver masses 09/02/2018 Migraine variant, intractable MENDEZ (nonalcoholic steatohepatitis) 11/22/2014 Nonintractable generalized idiopathic epilepsy without status epilepticus (HCC) 03/09/2019 OBSTRUCTIVE SLEEP APNEA (ADULT) - ON CPAP 12/1402/25/2010 Other specified disorders of liver 03/17 fatty liver Pain of upper abdomen 03/03/2012 Pneumonia due to COVID-19 virus 09/10/2020 Reflux 07/27/12 Stroke (HCC) 2013 Syncope and collapse Tachycardia Type 2 diabetes mellitus with hemoglobin A1c goal of less than 8.0% (HCC) 06/22/2014 Social History Socioeconomic History Marital status: Spouse name: Mathew Number of children: 2 Years of education: Not on file Highest education level: Not on file Occupational History Occupation: unemployed 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 . 2 sons--22at home 23 y engaged. Lifestyle Physical activity Days per week: Not on file Minutes per session: Not on file Stress: Not on file Relationships Social connections Talks on phone: Not on file Gets together: Not on file Attends sikhism service: Not on file Active member of club or organization: Not on file Attends meetings of clubs or organizations: Not on file Relationship status: Not on file Intimate partner violence Fear of current or ex partner: Not on file Emotionally abused: Not on file Physically abused: Not on file Forced sexual activity: Not on file Other Topics Concern Service Not Asked Blood Transfusions No Caffeine Concern No Occupational Exposure Not Asked Hobby Hazards Not Asked Sleep Concern Not Asked Stress Concern Not Asked Weight Concern Not Asked Special Diet No Back Care Not Asked Exercise Not Asked Bike Helmet Not Asked Seat Belt Yes Self-Exams Not Asked Social History Narrative Lives in [place] with , worked for the [employer] until 2010 Vaping/E-Cigarette Use Vaping/E-Cigarette Substances Vaping/E-Cigarette Devices Past Surgical History: Procedure Laterality Date COLONOSCOPY, DIAGNOSTIC (RECTUM) 06/06/2010 normal colon exam repeat in 5 years COLONOSCOPY, DIAGNOSTIC (RECTUM) 06/27/2015 retained stool, repeat/COLONOSCOPY FLEXIBLE PROXIMAL DIAGNOSTIC performed by Aj Pruett DO [facility] EGD, FLEXIBLE, DIAGNOSTIC 01/22/2011 UPPER GI ENDOSCOPY DIAGNOSTIC performed [place] STACEY BENNETT [place] [facility] [place], FLEXIBLE, DIAGNOSTIC 01/19/2014 portal hypertensive gastropathy, benign gastric polyp, repeat 2 yrs/done @ [facility] EGD, FLEXIBLE, DIAGNOSTIC 02/08/2016 normal bx, portal hypertensive gastropathy, repeat 1.5 yrs/[facility] EGD, FLEXIBLE, DIAGNOSTIC 08/25/2017 retained food, repeat 1 yr/ESOPHAGOGASTRODUODENOSCOPY (EGD), FLEXIBLE, TRANSORAL, DIAGNOSTIC performed by Aj Pruett DO at ENDOSCOPY [facility] EGD, FLEXIBLE, DIAGNOSTIC 12/15/2018 esophageal varices, gastritis, gastric polyp, repeat 1 yr/ESOPHAGOGASTRODUODENOSCOPY (EGD), FLEXIBLE, TRANSORAL, DIAGNOSTIC performed by Aj Pruett DO at ENDOSCOPY [facility] EGD, FLEXIBLE, DIAGNOSTIC 01/31/2020 fundic polyps, eso varices, portal hypertensive gastropathy, repeat 1 yr / ESOPHAGOGASTRODUODENOSCOPY (EGD), FLEXIBLE, TRANSORAL, DIAGNOSTIC performed by Aj Pruett DO at ENDOSCOPY [facility] EGD, FLEXIBLE, DIAGNOSTIC 10/09/2022 ESOPHAGOGASTRODUODENOSCOPY (EGD), FLEXIBLE, TRANSORAL, DIAGNOSTIC performed by Aj Pruett DO at ENDOSCOPY [facility] EGD, FLEXIBLE, W/BIOPSY 07/27/2012 small fundic stomach polyp/inflammation r/t reflux-repeat EGD in 1 yr EGD, W/ENDOSCOPIC US 01/22/2011 UPPER GI ENDOSCOPY ENDOSCOPIC ULTRASOUND performed [place] STACEY BENNETT [place] [facility] EVAL NEUROSTIM PULSE GEN, W/ REPROGRAM N/A 06/27/2022 NEUROSTIMULATOR PULSE GENERATOR/ TRANSMITTER, WITH INTRAOPERATIVE OR SUBSEQUENT PROGRAMMING performed by Rafia Small MD at OR [facility] EVAL NEUROSTIM PULSE GEN, W/ REPROGRAM N/A 08/22/2022 NEUROSTIMULATOR PULSE GENERATOR/ TRANSMITTER, WITH INTRAOPERATIVE OR SUBSEQUENT PROGRAMMING performed by Rafia Small MD at OR [facility] HYSTEROSCOPY,DIAGNOSTIC 07/16/2006 NovaSure endomentrial ablation IMPLANT EPIDURAL NEUROELECTRODES N/A 06/27/2022 PERCUTANEOUS IMPLANTATION NEUROSTIMULATOR EPIDURAL performed by Rafia Small MD at OR [facility] IMPLANT EPIDURAL NEUROELECTRODES N/A 08/22/2022 PERCUTANEOUS IMPLANTATION NEUROSTIMULATOR EPIDURAL performed by Rafia Small MD at OR [facility] IMPLANT SPINAL NEURORECEIVER N/A 08/22/2022 INSERTION OR REPLACEMENT SPINAL NEUROSTIMULATOR GENERATOR performed by Rafia Small MD [facility] INJECT DX/THER SUBSTANCE INTERLAMINAR LUMBAR/SACRAL W IMAGE GUIDE 04/13/2017 INJECTION SPINE LUMBAR OR SACRAL performed by Rene Kate DO at OR [facility] INJECT DX/THER SUBSTANCE INTERLAMINAR LUMBAR/SACRAL W IMAGE GUIDE 12/10/2017 INJECTION SPINE LUMBAR OR SACRAL performed by Rene Kate DO at OR [facility] INSER TUNN ACC DEV;5 YRS/OLDER 03/24/2013 03/24/2013 at [facility], Placement of A-Port central venous access catheter with port Dr. Renate MCGOWAN CT GUIDED NEEDLE BIOPSY 07/11/2010 CT GUIDED NEEDLE ASPIRATION BIOPSY performed by JAMILA SAWANT at [place] [facility] LIGATE/CUT OVIDUCT(S) 07/1995 Family History Problem Relation Age of Onset Mental Disorder Mother Depression, empysema Heart Disorder Mother CAD, with CABG Eye Problems Mother Glaucoma Other (COPD) Mother Diabetes Father on insulin- renal failure Heart Disorder Father enlarged heart, CHF - in january Stroke Father first at 32, smoked Eye Problems Father Glaucoma Eye Problems Grandmother (Maternal) Gastro-intestinal disorder Grandmother (Paternal) Liver disease Diabetes Brother Hypertension Brother Hypertension Brother No Past Hx Sister 15yo Review of patient's allergies indicates: Allergen Reactions Aleve [Naproxen Sodium] Bleeding Food (See Comments) Anaphylaxis Hot peppers (oils) Kiwi Extract Anaphylaxis Environmental [Pollen] Seasonal Current Outpatient Medications Medication Sig Dispense Refill [...] 630G INSULIN PUMP) KIT Use as directed. Ondansetron HCl 8 MG Oral Tablet (Zofran) TAKE 1 TABLET BY MOUTH EVERY 8 HOURS NEEDED FOR [id number] Tablet 1 Metoclopramide HCl 5 MG Oral Tablet (Reglan) Take by mouth 1 Tablet three times a day before meals . If needed for nausea 30 Tablet 0 Omeprazole 20 MG Oral Capsule Delayed Release (PriLOSEC) TAKE 1 CAPSULE BY MOUTH TWICE A DAY 180 Capsule 3 Atenolol 100 MG Oral Tablet (Tenormin) TAKE 1 TABLET BY MOUTH TWICE A DAY 180 Tablet 3 metFORMIN HCl 1000 MG Oral Tablet (Glucophage) TAKE 1 TABLET BY MOUTH 2 TIMES A DAY WITH MORNING AND EVENING MEALS 180 Tablet 3 CPAP every night at bedtime. Losartan Potassium 25 MG Oral Tablet (Cozaar) Take 1 Tablet by mouth at bedtime. 90 Tablet 2 Glucagon Emergency 1 MG Injection Kit As directed 1 Kit 3 Atorvastatin Calcium 40 MG Oral Tablet (Lipitor) Take 1 Tablet by mouth in the morning. (Patient taking differently: Take 1 Tablet by mouth at bedtime.) 90 Tablet 3 NovoLIN R ReliOn 100 UNIT/ML Injection Solution (insulin REGULAR human) INJECT UP TO 275 UNITS SUBCUTANEOUSLY ONCE DAILY, VIA PUMP 90 mL 3 Magnesium Oxide 400 (240 Mg) MG Oral Tablet (Mag-Ox) TAKE 1 TABLET BY MOUTH EVERY DAY 90 Tablet 3 Loratadine 10 MG Oral Tablet (Claritin) Take 1 Tablet by mouth in the morning. For allergies.. (Patient taking differently: Take 1 Tablet by mouth in the morning. As needed.) 90 Tablet 1 Meclizine HCl 25 MG Oral Tablet (Antivert) Take 1 Tablet by mouth 3 times a day as needed for Dizziness. 30 Tablet 1 Pregabalin 100 MG Oral Capsule (Lyrica) Take 1 Capsule by mouth in the morning and 1 Capsule at noon and 1 Capsule before bedtime. 270 Capsule 3 Furosemide 40 MG Oral Tablet (Lasix) TAKE 1 TABLET BY MOUTH EVERY DAY IN THE MORNING 90 Tablet 1 Escitalopram Oxalate 20 MG Oral Tablet (Lexapro) [...] for suspectedopioid overdose. Seek immediate medical attention. [email or web address] 1 Each 3 Spironolactone 50 MG Oral Tablet (Aldactone) TAKE 1 TABLET BY MOUTH EVERY DAY IN THE MORNING 90 Tablet 1 Eszopiclone 1 MG Oral Tablet (Lunesta) Take 1 Tablet by mouth at bedtime. 30 Tablet 2 Potassium Chloride ER 10 MEQ Oral Tablet Extended Release TAKE 1 TABLET BY MOUTH TWICE A DAY WITH FOOD 180 Tablet 1 traZODone HCl 100 MG Oral Tablet (Desyrel) Take 1-2 Tablets by mouth at bedtime. 180 Tablet 0 hydrOXYzine HCl 25 MG Oral Tablet Take 1 tab during the day every 4-6 hours as needed for anxiety and take 2 tabs at bedtime as needed for anxiety 120 Tablet 3 Albuterol Sulfate HFA 108 (90 Base) MCG/ACT Inhalation Aerosol Solution INHALE 2 PUFFS BY MOUTH EVERY 6 HOURS NEEDED FOR SHORTNESS OF BREATH 18 g 1 Buprenorphine 5 MCG/HR Transdermal Patch Weekly (Butrans) PLACE 1 PATCH TOPICALLY ON THE SKIN ONCE A WEEK. 4 Patch 0 Baclofen 10 MG Oral Tablet (Lioresal) Take 1 Tablet by mouth 3 times a day as needed for Muscle spasms. 90 Tablet 5 No current facility-administered medications for this visit. OBJECTIVE: BP 124/77 (BP Site: Left Arm, BP Position: Sitting, BP Cuff Size: Large) | Pulse 96 | Temp 36.6 C(97.9 F) (Tympanic) | Resp 16 | Wt 107.1 kg (236 lb 3.2 oz) | SpO2 91% | BMI 38.69 kg/m | BSA 2.22 m Constitutional: Patient is alert, cooperative and oriented x 3. Well built man, Patient is in no acute distress. HEENT:No icterus, no pallor, Throat and pharynx normal. Sinuses are non-tender. Neck: Supple and without lymphadenopathy or masses. No JVD. No Palpable supraclavicular lymph nodes. Lungs: Clear to auscultation. Bilateral symmetric air entry. No wheezing or rhonchi. Cardiovascular: Normal heart sounds, no murmurs.Regular rate and rhythm. Abdomen: soft, nontender, no hepatomegaly, no splenomegaly. Bowel sounds are normal. Neurological: Left-sided weakness, walks with the help of the cane. Extremities: No finger clubbing, No cyanosis. No leg edema. Skin:: No skin rash. SPINE: No spinal or paraspinal tenderness. LABS: Blood workup done on 01/15/2021: -Ferritin level --> 147 -Serum iron: 73, TIBC 337, iron saturation 22% -WBC 9000, H&H of 13/41.7, Platelet count of 126,000. Blood workup done on 08/01/2021: -WBC 7009, H&H of 12.6/39, Platelet 190,000 -ferritin level --> 81 -Serum iron 70, TIBC 313, iron saturation 22%. Blood workup done on 08/12/2022: -WBC 8200, H&H of 12/38.7, Platelet count [id number] -Ferritin level --> 29 -Serum iron: 48, TIBC 374, iron saturation 13%. Blood workup done on 12/03/2022: -WBC 7900, H&H of 13.6/42.5, Platelet count [id number] -alpha-fetoprotein level --> 1.4 -BUN/Creat: 17/1.1, Calcium 9.1 -AST 60, ALT 25, alkaline phosphatase 186, total bilirubin 0.6 IMPRESSION: History of LORAINE Cirrhosis of liver Portal HTN Mild thrombocytopenia Esophageal varices DM II For iron deficiency anemia, she had received intravenous iron in the form of Venofer, latest iron was received in September 2022. Subsequent blood workup showed improvement hemoglobin level and iron storage. Overall she is stable, tiredness present, denies any new bleeding complications. I would like to check CBCD, comprehensive metabolic panel, Ferritin, iron profile today and then every 3 monthly. Port flushed today and then every 6 weekly. It could not tolerate oral iron therapy, she has underlying gastroparesis. Will decide about additional need for IV iron based on the blood workup done today. I am planning to see her back in the clinic in about [address] Sunil Bourgeois Hem/Onc (This note was completed using the dictation program Fluency Direct. As such, there may be misspellings word substitutions, or other variations that should not change the essence of the clinical content of this encounter note. If there is need for further clarification, please direct questions to the provider listed above.) . She had received IV iron the form Venofer about 2 and half years back, now she is feeling somewhat weak and tired. I reviewed her blood workup done yesterday, hemoglobin level is around 12, Ferritin level progressively dropped down to around 29. Iron saturation dropped down to around 13%. It is likely that she isgoing to develop iron deficiency without iron supplementation. She could not tolerate oral iron replacement therapy in the past I would like to give her intravenous iron in the form Ferric Derisomaltose (Monoferric) x1 dose. If Ferric Derisomaltose (Monoferric) is not approved, will consider for Venofer. Will get CBCD Ferritin, iron profile about 6 weeks after the last IV iron treatment when she comes for the port flush. She says that she is going for spine stimulator surgery in about 2 weeks. I do not see any problem of having such surgery. Will see her back in the clinic about [address] Sunil Bourgeois Hem/Onc (This note was completed using the dictation program Fluency Direct. As such, there may be misspellings word substitutions, or other variations that should not change the essence of the clinical content of this encounter note. If there is need for further clarification, please direct questions to the provider listed above.) documented in this encounter Nursing Notes * Bronwyn Murcia CMA - 02/18/2023 1:37 PM EDT Patient identifed by name and birthdate Do you have any concerns about pain management for today's visit? Yes. Patient instructed to discuss pain concerns with provider during the visit today Living Will or Advance Directive for Health Care as noted on the problem list. [facility] is a way you can talk to your provider on line through e-mail. Would you like to sign up? I can activate it for you? ALREADY ACTIVE Filed Vitals: 02/18/23 1334 BP: 124/77 Pulse: 96 Resp: 16 Temp: 36.6 C (97.9 F) TempSrc: Tympanic SpO2: 91% Weight: 107.1 kg (236 lb 3.2 oz) Patient was instructed to not get up on the exam table/exam chair until directed and assisted by their provider; patient is to remain seated in the chair/ wheelchair/ exam table/ exam chair for fall prevention and safety reasons. Patient is aware to have assistance to step down off exam table/exam chair with personnel. Patient voiced full comprehension of instructions. documented in this encounter Plan of Treatment Upcoming Encounters Date Type Specialty Care Team Description 02/25/2023 Pharmacy Pharmacy [place] [id number] [place], [place] [phone] 03/13/2023 Office Visit Family Medicine Scott Weldon MD [address] [place] [address] 03/26/2023 Hospital Encounter Endoscopy Aj Pruett, DO [address] [place] [address] 03/26/2023 Surgery Endoscopy Aj Pruett, DO [address] [place] [address] COLONOSCOPY FLEXIBLE PROXIMAL DIAGNOSTIC 04/13/2023 Telemedicine Psychiatry Rj Mai MD [address] [place], [place] [id number] 04/16/2023 Telemedicine [facility] [address] [place] [address] Scheduled Procedures Name Priority Associated Diagnoses Date/Ti [...] 10/03/2021, 0 11/07/2019, 11/03/2018, Additional history exists HbA1c 12/09/2022 06/11/2022, 04/09, 03/11/2022, Additional history exists DIABETES-EYE EXAM 01/16/2023 01/16/2022, , 02/12/2016, Additional history exists Influenza Vaccine (FLU shot) (#1) 2023 03/01/2021, 02/28/2020, 03/09/2019, Additional history exists Albumin/Creatinine Ratio 03/11/2023 022, 11/08/2021, 08/18/2018, Additional history exists B-12 06/11/2023 06/11/2022, 0 12/2020, 07/05/2019, Additional history exists GFR 12/04/2023 12/03/2022, 0 [...] / Lot Envelope Tyrx Med Antibacteril - [id number] Implanted:Qty: 1 on 08/22/2022 by Rafia Small MD at OR [facility] N/A: Spine Lumbar [employer] 03/10/2023 [id number] / / [id number] documented as of this encounter Visit Diagnoses Diagnosis Other iron deficiency anemia- Primary Screen for colon cancer Special screening [...] the patient have Health Care Power of Graphic Arts Technician? No Code Status History Code Status Date Activated Date Inactivated Comments Full Code 01/21/2011 12:12 PM 01/22/2011 8:48 PM This order reflects the patients wishes and were consensually agreed upon. Question Answer Comments Discussion of Advance Directives occurred with: Patient Does the patient have a Living Will? No Does the patient have Health Care Power of Graphic Arts Technician? No Care Teams Signaler Relationship Specialty Start Date End Date Scott Weldon MD [address] [place] [address] PCP - General Family Medicine 08/03/18 documented as of this encounter
--- OUTSIDE RECORDS SUMMARY | 2023-08-12 09:30 | External Medical Summary | Summary of Care ---
Author Name Unknown Organization [facility] Address [address] [facility] [address] Phone [phone] Care Team Providers Care Culled Fruit Packer Name Role Phone Scott Weldon MD Primary Care Provider + Reason for Visit * Reason Comments Outpatient Testing Encounter Details Date Type Department Care Team Description 02/18/2023 Laboratory Laboratory [facility] [place] [address] [place] [address] [facility] [address] [place] [address] Type 2 diabetes mellitus with hemoglobin A1c goal of less than 8.0% ([facility]) Allergies Active Allergy Reactions Severity Noted Date Comments Naproxen Sodium Bleeding High 11/29/2013 Pollen 12/03/2022 Seasonal Food (See Comments) Anaphylaxis High 04/20/2019 Hot peppers (oils) Kiwi Extract Anaphylaxis High 04/20/2019 documented as of this encounter (statuses as of 02/18/2023) Medications Medication Sig Dispensed Refills Start Date End Date Status ONETOUCH ULTRASOFT LANCETS MISCIndications:DM type 2, not at goal ([facility]) check FS 6 times daily 4 [...] goal of less than 8.0% ([facility]) Inject 1 mg under the skin [...] suspected opioid overdose. Seek immediate medical attention. [email or web address]?v=v26cDa [email or web address] 1 Each 3 3 Active [...] Overview: Per Obesity Taxonomy Coronary atherosclerosis of [place] coronary abdias ry 09/15/2008 10/03/2008 Malaise and [...] mRNA, LNP-s, No Pre serve, 2-Dose Series (Re.Mu) 11/08/2020,10/11/2020 HEP A - Hepatitis A (Adult [...] Encounters Date Type Specialty Care Team Description 02/18/2023 Office Visit Hematology Oncology Sunil Bourgeois MD [address] [place] [address] Hematology/Oncology Outpatient Clinic note 02/18/2023 Immunization/Injecti o n Hematology Oncology Nurse, Med 4 [address] [place] [address] Arrived 02/25/2023 Pharmacy Pharmacy [address] [address] 03/13/2023 Office Visit Family Medicine Scott Weldon MD [address] [place] [address] 03/26/2023 Hospital Encounter Endoscopy Aj Pruett, DO [address] [place] [address] 03/26/2023 Surgery Endoscopy Aj Pruett, DO [address] [place] [address] COLONOSCOPY FLEXIBLE PROXIMAL DIAGNOSTIC 04/13/2023 Telemedicine Psychiatry Rj Mai MD [address] [place] [address] 04/16/2023 Telemedicine Pharmacy [address] [place] [address] Pending Results Name Type Priority Associated Diagnoses Date /Time HEMOGLOBIN A1C Lab Routine Type 2 diabetes mellitus with hemoglobin A1c goal of less than 8.0% ([facility]) 02/18/2023 1:26 PM EDT Scheduled Procedures Name Priority Associated Diagnoses Date/Ti [...] this encounter Medical Devices Implanted Type Area Apprentice Electrician Device Identifier Shelf Expiration Date Model / Serial / Lot Envelope Tyrx Med Antibacteril - [id number] Implanted:Qty: 1 on 08/22/2022 by Rafia Small MD at OR [facility] N/A: Spine Lumbar [employer] 03/10/2023 [id number] / / [id number] documented as of this encounter Visit Diagnoses Diagnosis Type 2 diabetes mellitus with hemoglobin A1c goal of less than 8.0% (HCC) Screen for colon cancer Special screening for [...] the patient have Health Care Power of Chopper Operator? No Code Status History Code Status Date Activated Date Inactivated Comments Full Code 01/21/2011 12:12 PM 01/22/2011 8:48 PM This order reflects the patients wishes and were consensually agreed upon. Question Answer Comments Discussion of Advance Directives occurred with: Patient Does the patient have a Living Will? No Does the patient have Health Care Power of Chopper Operator? No Care Teams Culled Fruit Packer Relationship Specialty Start Date End Date Scott Weldon MD [address] [place] [address] PCP - General Family Medicine 08/03/18 documented as of this encounter
--- OUTSIDE RECORDS SUMMARY | 2023-08-12 09:30 | External Medical Summary ---
Author Name Unknown Address Unknown Organization [id number][facility] [place] [address] Laboratory Report Ordering Provider Test Date Status LUIS ANTONIO LEIVA 02/18/2023 13:26:46 Final Observation Date Value Abnormality Reference (Units ) Status WBC, Total 02/18/2023 13:26:46 7.09 4.00-10.8 0 (K/uL) Final RBC 02/18/2023 13:26:46 4.35 3.85-5.15 (M/uL) Final Hemoglobin 02/18/2023 13:26:46 12.8 12.0-15.3 (g/dL) Final HCT 02/18/2023 13:26:46 40.1 36.0-45.2 (%) Final MCV 02/18/2023 13:26:46 92.2 81.5-97.5 (fL) Final MCH 02/18/2023 13:26:46 29.4 27.0-34.0 (pg) Final MCHC 02/18/2023 13:26:46 31.9 32.0-36.0 (g/dL) Final RDW 02/18/2023 13:26:46 14.1 11.5-15.5 (%) Final Platelets 02/18/2023 13:26:46 88 Below low normal 140 -400 (K/uL) Final MPV 02/18/2023 13:26:46 9.7 6.6-11.1 ( fL) Final Performing Location [facility] [place] [address]
--- OUTSIDE RECORDS SUMMARY | 2023-08-12 09:30 | External Medical Summary ---
Author Name Unknown Address Unknown Organization [id number][facility] [place] [address] Laboratory Report Ordering Provider Test Date Status LUIS ANTONIO LEIVA 02/18/2023 13:26:46 Final Observation Date Value Abnormality Reference (Units ) Status SYNC LEUKOCYTES IN BLOOD BY AUTOMATED COUNT 02/18/2023 13:26:46 7.09 4.00-10.80 (K/uL) Final Segs 02/18/2023 13:26:46 67.9 40.0-75.0 (%) Final Lymphs % 02/18/2023 13:26:46 21.4 18.0-42.0 (%) Final Monos 02/18/2023 13:26:46 7.5 1.0-11.0 (%) Final Eosinophils 02/18/2023 13:26:46 2.8 0.0-6.0 (%) Final Basos 02/18/2023 13:26:46 0.4 0.0-2.0 (%) Final Absolute Segs 02/18/2023 13:26:46 4.81 1.80-7.70 (K/uL) Final Lymphs, absolute 02/18/2023 13:26:46 1.52 1.00-4.80 (K/ul) Final Monos, Abs 02/18/2023 13:26:46 0.53 0.00-1.10 (K/uL) Final Eos, Abs 02/18/2023 13:26:46 0.20 0.00-0.70 (K/uL) Final Basos, Abs 02/18/2023 13:26:46 0.03 0.00-0.20 (K/uL) Final Performing Location [facility] [place] [address]
--- OUTSIDE RECORDS SUMMARY | 2023-08-12 09:30 | External Medical Summary ---
Author Name Unknown Address Unknown Organization [id number][facility] [place] [address] [place] [address] Laboratory Report Ordering Provider Test Date Status GUS KENNEDY 02/18/2023 13:26:46 Final Observation Date Value Abnormality Reference (Units ) Status HbA1C 02/18/2023 13:26:46 5.7 Above high normal 4. 0-5.6 (%) Final The use of HbA1c to monitor glycemic status is based on normal hemoglobin and HbA composition. This test should not be used in patients with abnormal hemoglobin that affects the half life of the red blood cell or the in vivo glycation rates. Glucose, estimated average 02/18/2023 13:26:46 117 <126 (mg/dL) Final Performing Location [facility] [place] [address] [place] [address]
--- OUTSIDE RECORDS SUMMARY | 2023-08-12 09:30 | External Medical Summary | Summary of Care ---
Author Name Unknown Organization [facility] Address [address] [facility] [place] [address] Phone [phone] Care Team Providers Care Moshgiach Name Role Phone Scott Weldon MD Primary Care Provider + Reason for Visit * Reason Onset Date Comments Outpatient Testing 02/19/2023 Test Results Lab 02/19/2023 Encounter Details Date Type Department Care Team Description 02/19/2023 Telephone Hematology/Oncology [facility] [place] [address] [place] [place] [address] Sunil Bourgeois MD [address] [place] [address] Outpatient Testing; Test Results Lab Allergies Active Allergy Reactions Severity Noted Date Comments Naproxen Sodium Bleeding High 11/29/2013 Pollen 12/03/2022 Seasonal Food (See Comments) Anaphylaxis High 04/20/2019 Hot peppers (oils) Kiwi Extract Anaphylaxis High 04/20/2019 documented as of this encounter (statuses as of 02/19/2023) Medications Medication Sig Dispensed Refills Start Date [...] Dosing Unit 3 6 Active Glucose Blood (Heekya CONTOUR NEXT TEST) STRP Use to test [...] suspected opioid overdose. Seek immediate medical attention. [email or web address] 1 Each 3 3 Active [...] as of this encounter (statuses as of 02/19/2023) Active Problems Problem Noted Date Esophageal varices [...] as of this encounter (statuses as of 02/19/2023) Resolved Problems Problem Noted Date Resolved Date [...] Overview: Per Obesity Taxonomy Coronary atherosclerosis of [place] coronary abdias ry 09/15/2008 10/03/2008 Malaise and [...] as of this encounter (statuses as of 02/19/2023) Immunizations Name Administration Dates Next Due COVID-19 [...] encounter Miscellaneous Notes * Telephone Encounter - Kerri Poe LPN - 02/19/2023 9:45 AM EDT Entered lab orders for every 3 months (12 weeks for every other port flush) Patient will need for May port flush. Notified patient per Jammit message, patient is active. ----- Message from Sunil Bourgeois MD sent at 02/19/2023 6:17 AM EDT ----- Blood workup done on 02/18/2023: -WBC 7000, H&H of 12.8/40, MCV 92, Platelet count 534[address] -Serum iron: 89, TIBC 290, iron saturation 31% -Ferritin level -> 244 -she received IV iron in the form Venofer x4 between 08/18/2022 -09/29/2022. Improvement of the iron storage noted, no anemia. Will check CBCD Ferritin, iron profile every other port flush. documented in this encounter Plan of Treatment Upcoming Encounters Date Type Specialty Care Team Description 02/25/2023 [facility] [address] [facility] [place] [address] 03/13/2023 Office Visit Family Medicine Scott Weldon MD [address] [place] [address] 03/26/2023 Hospital Encounter Endoscopy Aj Pruett, DO [address] [place], [place] [address] 03/26/2023 Surgery Endoscopy Aj Pruett, DO [address] [place], [place] [address] COLONOSCOPY FLEXIBLE PROXIMAL DIAGNOSTIC 04/01/2023 Immunization/Injecti o n Hematology Oncology Nurse, Med 4 [address] [facility] [address] [place], [place] [address] 04/13/2023 Telemedicine Psychiatry Rj Mai MD [address] [place] [address] 04/16/2023 Telemedicine [facility] [address] [place], [place] [address] 04/23/2023 Office Visit Neurology Yesenia Wayne PA-C [address] [place], [place] [address] 08/19/2023 Office Visit Hematology Oncology Sunil Bourgeois MD [address] [place], [place] [address] Scheduled Orders Name Type Priority Associated Diagnoses Orde r Schedule CBC WITH WBC DIFFERENTIAL Lab STAT Iron deficiency anemia, unspecified iron deficiency anemia type Every 3 Months for 4 Occurrences starting 02/19/2023 until 02/20/2024 FERRITIN Lab STAT Iron deficiency anemia, unspecified iron deficiency anemia type Every 3 Months for 4 Occurrences starting 02/19/2023 until 02/20/2024 IRON SCREEN, INCLUDING TIBC Lab STAT Iron deficiency anemia, unspecified iron deficiency anemia type Every 3 Months for 4 Occurrences starting 02/19/2023 until 02/20/2024 Scheduled Procedures Name Priority Associated Diagnoses Date/Ti [...] 02/28/2020, 03/09/2019, Additional history exists Albumin/Creatinine Ratio 03/11/202303/11/2 022, 11/08/2021, 08/18/2018, Additional history exists B-12 [...] this encounter Medical Devices Implanted Type Area Sausage Meat Trimmer Device Identifier Shelf Expiration Date Model / Serial / Lot Envelope Tyrx Med Antibacteril - [id number] Implanted:Qty: 1 on 08/22/2022 by Rafia Small MD at OR [facility] N/A: Spine Lumbar [employer] 03/10/2023 [id number] / / [id number] documented as of this encounter Visit Diagnoses Diagnosis Cirrhosis of liver without ascites, unspecified hepatic cirrhosis type (HCC)- Primary Iron deficiency anemia, unspecified iron deficiency anemia type Screen for colon cancer Special screening [...] the patient have Health Care Power of Molder Bench? No Code Status History Code Status Date Activated Date Inactivated Comments Full Code 01/21/2011 12:12 PM 01/22/2011 8:48 PM This order reflects the patients wishes and were consensually agreed upon. Question Answer Comments Discussion of Advance Directives occurred with: Patient Does the patient have a Living Will? No Does the patient have Health Care Power of Molder Bench? No Care Teams Moshgiach Relationship Specialty Start Date End Date Scott Weldon MD [address] [place] [address] PCP - General Family Medicine 08/03/18 documented as of this encounter
--- OUTSIDE RECORDS SUMMARY | 2023-08-12 09:30 | External Medical Summary | Summary of Care ---
Author Name Unknown Organization [facility] Address [address] [facility] [place] [address] Phone [phone] Care Team Providers Care Networks Software Consultant Name Role Phone Scott Weldon MD Primary Care Provider + Reason for Visit * Reason Comments Procedure Port flush Encounter Details Date Type Department Care Team Description 02/18/2023 Immunization/In jection Hematology/Oncology Treatment, [place] [address] [place] [address] Nurse, Med [address] [place] [address] Encounter for care related to vascular access port*; Encounter for venous access device care Allergies Active Allergy Reactions Severity Noted Date [...] goal of less than 8.0% ([facility]),DM type 2, not at goal ([facility]) INJECT UP TO 275 UNITS SUBCUTANEOUSLY [...] goal of less than 8.0% ([facility]) Inject 1 mg under the skin [...] suspected opioid overdose. Seek immediate medical attention. [email or web address]?v=[email or web address] [email or web address] 1 Each 3 3 Active [...] 03/09/2019 06/09/2019 Malignant neoplasm of liver 02/04/2019 0207/2020 Obesity, Class III, BMI 40-49.9 (morbid obesity) [...] Overview: Per Obesity Taxonomy Coronary atherosclerosis of [place] coronary abdias ry 09/15/2008 10/03/2008 Malaise and [...] No 04/20/2019 documented as of this encounter Nursing Notes * Amada Foote RN - 02/18/2023 3:30 PM EDT Chair 7. VAD (Venous Access Device) accessed with #20G 1" with some difficulty d/t the port positioning. VADflushed with 10 ml NSS, blood return present and flushed also with Heparin 5 ml (100 units/ml). Powell needle removed intact. documented in this encounter Plan of Treatment Upcoming Encounters Date Type Specialty Care Team Description 02/25/2023 Pharmacy Pharmacy [facility] [address] [place] [address] 03/13/2023 Office Visit Family Medicine Scott Weldon MD [address] [place] [address] 03/26/2023 Hospital Encounter Endoscopy Aj Pruett, DO [address] [place] [address] 03/26/2023 Surgery Endoscopy Aj Pruett, DO [address] [place] [address] COLONOSCOPY FLEXIBLE PROXIMAL DIAGNOSTIC 04/01/2023 Immunization/Injecti o n Hematology Oncology Nurse, Med 4 [address] [place] [address] 04/13/2023 Telemedicine Psychiatry Rj Mai MD [address] [facility] [place] [address] 04/16/2023 Telemedicine Pharmacy [facility] [address] [facility] [place] [address] 04/23/2023 Office Visit Neurology Yesenia Wayne PA-C [address] [place], [place] [address] 08/19/2023 Office Visit Hematology Oncology Sunil Bourgeois MD [address] [place], [place] [address] Scheduled Procedures Name Priority Associated Diagnoses Date/Ti [...] 06/11/2022, 010 12/2020, 07/05/2019, Additional history exists GFR 12/04/2023 [...] this encounter Medical Devices Implanted Type Area On Site Services Specialist Device Identifier Shelf Expiration Date Model / Serial / Lot Envelope Tyrx Med Antibacteril - [id number] Implanted:Qty: 1 on 08/22/2022 by Rafia Small MD at OR [facility] N/A: Spine Lumbar [employer] 03/10/2023 [id number] / / [id number] documented as of this encounter Visit Diagnoses Diagnosis Encounter for care related to vascular access port- Primary Fitting and adjustment of vascular catheter Encounter for venous access device care Fitting and adjustment of vascular catheter Screen for colon cancer Special screening for malignant neoplasms, colon documented in this encounter Administered Medications Active Administered Medications - up to 3 most recent administrations Medication Order MAR Action Action Date Dose Rate Site hEParin 100 UNIT/ML Lock Flush inj 500 Units 500 Units (5 mL), IV Lock, PRN Other, IV Flush, Starting on Thu02/18/23 at 1417, Until Coreen 02/19/23 at 1416, For 24 hours, Do not flush if lock, PICC, or central line not in place; IV infusing or unable to flush. Given 02/18/2023 2:45 PM EDT 500 Units sodium chloride 0.9 % flush central line 10 mL 10 mL, IV Push, PRN Other, IV Flush, Starting on Thu02/18/23 at 1417, Until Coreen 02/19/23 at 1416, For 24 hours, Do not flush if lock, PICC, or central line not in place; IV infusing or unable to flush. Given 02/18/2023 2:45 PM EDT 10 mL documented in this encounter Advance Directives Latest [...] the patient have Health Care Power of Senior Tax Accountant? No Code Status History Code Status Date Activated Date Inactivated Comments Full Code 01/21/2011 12:12 PM 01/22/2011 8:48 PM This order reflects the patients wishes and were consensually agreed upon. Question Answer Comments Discussion of Advance Directives occurred with: Patient Does the patient have a Living Will? No Does the patient have Health Care Power of Senior Tax Accountant? No Care Teams Networks Software Consultant Relationship Specialty Start Date End Date Scott Weldon MD [address] [place] [address] PCP - General Family Medicine 08/03/18 documented as of this encounter
--- OUTSIDE RECORDS SUMMARY | 2023-08-12 09:30 | External Medical Summary ---
Author Name Unknown Address Unknown Organization K09:[facility] [place] [address] Laboratory Report Ordering Provider Test Date Status LUIS ANTONIO LEIVA 02/18/2023 13:26:46 Final Observation Date Value Abnormality Reference (Units ) Status Nucleated erythrocytes/100 leukocytes [Ratio] in Blood by Automated count 02/18/2023 13:26:46 Final Performing Location [facility] [place] [address]
--- OUTSIDE RECORDS SUMMARY | 2023-08-12 09:30 | External Medical Summary ---
Author Name Unknown Address Unknown Organization K01:[facility] [place] - [address] [place] [address] Laboratory Report Ordering Provider Test Date Status LUIS ANTONIO LEIVA 02/18/2023 13:26:46 Final Observation Date Value Abnormality Reference (Units ) Status Ferritin 02/18/2023 13:26:46 244 Above high normal 13 -150 (ng/mL) Final Postmenopausal women have hi gher ferritin levels than pre-menopausal women. The above reference interval is based on pre-menopausal women. Performing Location [facility] - [address] [place] [address]
--- OUTSIDE RECORDS SUMMARY | 2023-08-12 09:30 | External Medical Summary ---
Author Name Unknown Address Unknown Organization K01:[facility] - [address] [place] [address] Laboratory Report Ordering Provider Test Date Status LUIS ANTONIO LEIVA 02/18/2023 13:26:46 Final Observation Date Value Abnormality Reference (Units ) Status Iron 02/18/2023 13:26:46 89 33-151 (ug /dL) Final Iron-binding capacity 02/18/2023 13:26:46 290 250-425 (ug/dL) Final Transferrin Sat % 02/18/2023 13:26:46 31 15 -55 (%) Final Performing Location [facility] - [address] [place] [address]
--- OUTSIDE RECORDS SUMMARY | 2023-08-12 09:31 | External Medical Summary | Summary of Care ---
Author Name Unknown Organization [facility] Address [address] [facility] [place] [address] Phone [phone] Care Team Providers Care Bagger Meat Name Role Phone Scott Montoya MD Primary Care Provider + Reason for Visit * Reason Onset Date Comments Medication Refill 02/12/2023 Encounter Details Date Type Department Care Team Description 02/12/2023 Refill Family Practice [facility] [address] [facility] [place] [address] Scott Montoya MD [address] [facility] [place] [address] Back spasm Allergies Active Allergy Reactions Severity Noted Date Comments Naproxen Sodium Bleeding High 11/29/2013 Pollen 12/03/2022 Seasonal Food (See Comments) Anaphylaxis High 04/20/2019 Hot peppers (oils) Kiwi Extract Anaphylaxis High 04/20/2019 documented as of this encounter (statuses as of 02/12/2023) Medications Medication Sig Dispensed Refills Start Date [...] goal of less than 8.0% ([facility]) Inject 1 mg under the [...] suspected opioid overdose. Seek immediate medical attention. [email or web address]?[email or web address] 1 Each 3 3 Active Spironolactone 50 [...] for Muscle spasms. 90 Tablet 5 3 02/13/20 23 Discontinu ed(Refill) documented as of this encounter (statuses as of 02/12/2023) Active Problems Problem Noted Date Esophageal varices [...] 07/17/2016 Overview: Need pap/mammo. UTOX due 08/26 01/25 EGD_- Non-bleeding grade I esophageal varices. [...] as of this encounter (statuses as of 02/12/2023) Resolved Problems Problem Noted Date Resolved Date [...] Overview: Per Obesity Taxonomy Coronary atherosclerosis of [place] coronary abdias ry 09/15/2008 10/03/2008 Malaise and [...] as of this encounter (statuses as of 02/12/2023) Immunizations Name Administration Dates Next Due COVID-19 mRNA, LNP-s, No Pre serve, 2-Dose Series ([employer]) 11/08/2020,10/11/2020 HEP A - Hepatitis A (Adult [...] Telephone Encounter - Scott Montoya MD - 02/12/2023 10:47 PM EDTSigned Prescriptions: Disp Refills Baclofen 10 MG Oral Tablet (Lioresal) 90 Tab*5 Sig: Take 1 Tablet by mouth 3 times a day as needed for Muscle spasms. Authorizing Provider: SCOTT MONTOYA * Telephone Encounter - Syed Reardon RN - 02/12/2023 3:25 PM EDTPending Prescriptions: Disp Refills Baclofen 10 MG Oral Tablet (Lioresal) 90 Tab*5 Sig: Take 1 Tablet by mouth 3 times a day as needed for Muscle spasms. * Telephone Encounter - Ioana Echevarria - 02/12/2023 2:55 PM EDT Did you pend patient's preferred pharmacy and medication before forwarding?yes Pharmacy: [id number] [address] [facility] Pending Prescriptions: Disp Refills Baclofen 10 MG Oral Tablet (Lioresal) 90 Tab*5 Sig: Take 1 Tablet by mouth 3 times a day as needed for Muscle spasms. Last Visit: 12/04/2021 (in office), 09/08/2022 (telemedicine) Next Visit: 03/13/2023 If no future appointments scheduled, and last appointment is greater than a year ago, please schedule patient for a follow-up appointment Last date the medication was ordered: 09.30.22 Is this request for a controlled substance?No 90 day refill request Urine Drug Screen: Results for orders placed [...] PM ALT 17 06/14/2020 09:00 AM HGBA1C 8.6 (H) 06/11/2022 09:48 AM HGBA1C 7.9 (H) 06/14/2020 09:00 AM documented in this encounter Plan of Treatment Upcoming Encounters Date Type Specialty Care Team Description 02/18/2023 Office Visit Hematology Oncology Sunil Bourgeois MD [address] [facility] [place] [address] 02/18/2023 Immunization/Injecti o n Hematology Oncology Nurse, Med 4 [address] [facility] [place] [address] 02/25/2023 Pharmacy Pharmacy [address] [address] 03/13/2023 Office Visit Family Medicine Scott Montoya MD [address] [place] [address] 03/26/2023 Hospital Encounter Endoscopy Aj Pruett, [address] [place] [address] 03/26/2023 Surgery Endoscopy Aj Pruett, DO [address] [place] [address] COLONOSCOPY FLEXIBLE PROXIMAL DIAGNOSTIC 04/13/2023 Telemedicine Psychiatry Rj Mai MD [address] [facility] [place] [address] 04/16/2023 Telemedicine Pharmacy [facility] [address] [place] [address] Scheduled Procedures Name Priority Associated Diagnoses Date/Ti [...] 11/03/2018, Additional history exists HbA1c 12/09/2022 06/11/2022, 11/2 11/2021, 03/11/2022, Additional history exists DIABETES-EYE EXAM 01/16/2023 [...] this encounter Medical Devices Implanted Type Area Wedding Transportation Driver Device Identifier Shelf Expiration Date Model / Serial / Lot Envelope Tyrx Med Antibacteril - [id number] Implanted:Qty: 1 on 08/22/2022 by Rafia Small MD at OR [facility] N/A: Spine Lumbar [employer] 03/10/2023 [id number] / / [id number] documented as of this encounter Visit Diagnoses [...] the patient have Health Care Power of Plumbing Instructor? No Code Status History Code Status Date Activated Date Inactivated Comments Full Code 01/21/2011 12:12 PM 01/22/2011 8:48 PM This order reflects the patients wishes and were consensually agreed upon. Question Answer Comments Discussion of Advance Directives occurred with: Patient Does the patient have a Living Will? No Does the patient have Health Care Power of Plumbing Instructor? No Care Teams Bagger Meat Relationship Specialty Start Date End Date Scott Montoya MD [address] [place] [address] PCP - General Family Medicine 08/03/18 documented as of this encounter
[2023-08-12] MEDS: BACLOFEN 10 MG TAB PO SCH (09:43)
[2023-08-12] MEDS: FUROSEMIDE 40 MG TAB PO SCH (09:43)
[2023-08-12] MEDS: ATORVASTATIN 40 MG TAB PO SCH (09:43)
[2023-08-12] MEDS: hydrOXYzine HCl 25 MG TAB PO SCH (09:43)
[2023-08-12] MEDS: SPIRONOLACTONE 25 MG TAB PO SCH (09:43)
[2023-08-12] MEDS: ATENOLOL 50 MG TABLET PO SCH (09:44)
[2023-08-12] MEDS: LORATADINE 10 MG TAB PO SCH (09:44)
[2023-08-12] MEDS: MAGNESIUM OXIDE 400 MG TAB PO SCH (09:44)
[2023-08-12] MEDS: ESCITALOPRAM OXALATE 20 MG TAB PO SCH (09:45)
[2023-08-12] MEDS: POTASSIUM CHLORIDE 10 MEQ TABCR PO SCH (09:55)
[2023-08-12] MEDS: PREGABALIN 100 MG CAP PO SCH (09:55)
[2023-08-12 11:39] LABS: Hematocrit (blood only) 35.2 % (37.0-47.0); Hemoglobin 11.3 g/dl (12.0-16.0)
[2023-08-12] MEDS: PANTOprazole 40 MG in DEXTROSE 5% MINI-B 100 ML IV SCH (16:49)
[2023-08-12] MEDS: metroNIDAZOLE 500 MG/100 ML BAG IV SCH (16:52)
[2023-08-12] MEDS: CIPROFLOXACIN / D5W 400 MG/200 ML BAG IV SCH (16:54)
[2023-08-12 17:35] LABS: Hematocrit (blood only) 34.8 % (37.0-47.0); Hemoglobin 11.5 g/dl (12.0-16.0)
[2023-08-12] MEDS ORDERED: traZODone HCL 100 MG TAB PO SCH (21:00)
[2023-08-12] MEDS: DICYCLOMINE HCL 20 MG TAB PO SCH (21:28)
[2023-08-12] MEDS: LOSARTAN POTASSIUM 25 MG TAB PO SCH (21:29)
[2023-08-12] MEDS: traZODone HCL 100 MG TAB PO PRN (21:30)
[2023-08-12 23:16] LABS: Hematocrit (blood only) 33.5 % (37.0-47.0); Hemoglobin 11.2 g/dl (12.0-16.0)
--- NOTE | 2023-08-13 01:09 | Hospitalist Progress Note ---
Date of Service August 12, 2023 Assessment & Plan (1) Hematemesis: Plan: 53-year-old female with past medical history significant for type 2 diabetes, diabetic retinopathy, hyperlipidemia, diabetic gastroparesis, diabetic polyneuropathy, obstructive sleep apnea on CPAP, hypertension, portal hypertension, esophageal varices, cirrhosis of liver without ascites, GERD, morbid obesity, history of stroke with left-sided weakness ambulates with a cane, psychogenic nonepileptic seizures, chronic pain syndrome, thrombocytopenia, iron deficiency anemia, depression, PTSD, history of COVID presenting with blood per rectum for 2 weeks with 2 episodes of hematemesis. Patient says she is on Ozempic since June 2022 she gets on and off diarrhea. Last 2 weeks she is noticing blood whenever she has diarrhea. Patient says she had history of bleeding from polyps in the past. And she has appointment for colonoscopy in September. She also has gastroparesis and some days she gets vomiting. Today she vomited couple of times and it was a bile and pink-colored vomitus which prompted her to come to the ER. Hematemesis Hx of MENDEZ Cirrhosis with Varices 2 episodes day of admission Also ongoing blood per rectum for the last 2 weeks and there is a plan for colonoscopy in September as per patient. History of polyp bleed as per patient Patient has history of cirrhosis and esophageal varices and thrombocytopenia. Hemoglobin stable at 12.2- has remained stable at about 11 on multiple repeats MELD 7 Continue Protonix drip N.p.o., gentle fluids GI consulted, appreciate recs (see below) -Keep NPO, trend h/h -scope only if significant drop in hgb -Keep outpt appt for colonoscopy and EGD otherwise -avoid NSAIDs, high dose tylenol, alcohol -daily weights -due for follow up with outpt video rental clerk on discharge On Lasix and spironolactone for cirrhosis which we will continue Monitor for volume overload Colitis Pt with reports of bloody diarrhea at home Abd/pelvis CT noting colitis, fatty liver infiltration GI consulted, appreciate recs -stool culture, still uncollected -empiric abx with cipro and flagyl -continue ppi drip Currently NPO, continue to monitor Pain control as needed Anemia Hgb decreased to 11 as above Anemia workup with iron studies, ferritin, b12 and folate pending Thrombocytopenia Platelets on lower end, 70K Peripheral smear pending Diabetes type 2 Hypoglycemia episodes On insulin pump which patient wants to keep on Reports on 08/11 that pt has been having hypoglycemic episodes while NPO Hold home po medications, also on ozempic at home ISS Received dextrose Close monitor Possible QT prolongation Pt on multiple qt prolonging meds Daily EKGS, continue to monitor Diabetic gastroparesis Antiemetics as needed Obstructive sleep apnea On CPAP CPAP qhs while here History of stroke and left-sided weakness Ambulates with cane On statin Hypertension On atenolol , losartan and diuretics Will monitor, currently well controlled Hyperlipidemia On statin Chronic pain Continue buprenorphine patch Depression on Lexapro DVT prophylaxis: SCDs, anemic and thrombocytopenic CODE STATUS: Full code Diet: currently NPO Dispo: PT/OT ordered Admission and Anticipated Discharge Date Admission Date: August 11, 2023 Subjective Pt was seen in the AM, while still down in the ED. Stated that she was "miserable". Wanted pain meds, stated that the bed was too small for her. Review of Systems Review of Systems: All systems reviewed & are unremarkable except as noted in Subjective Physical Exam Physical Exam: General: Alert, oriented. No acute distress Skin: No noted rashes or bruises Psych: tearful mood and affect Neuro: No gross deficits HEENT: NC/AT Chest: Nontender to palpation. CV: RRR, Normal s1, s2. No murmurs appreciated Resp: Breath sounds clear bilaterally, no increased effort of breathing. Abdomen: Soft, nontender, nondistended. Extremities: Trace edema in lower extremities bilaterally. Results & Data Results & Data Vital Signs (Past 12 Hours) Vital Signs Pulse Pulse Resp BP BP Pulse Ox O2 Del Method 08/12/23 12:08 81 18 110/70 94 Room Air 08/12/23 07:57 77 08/12/23 07:00 76 11 L 127/75 90 08/12/23 03:00 80 15 96 Room Air 08/12/23 02:42 75 (1) Hematemesis Nausea presence: without nausea Qualified Code(s): K92.0 - Hematemesis
[2023-08-13] MEDS ORDERED: PHARMACY GLYCEMIC MGMT CONSULT PRN (06:49)
--- NOTE | 2023-08-13 06:53 | Communication Note ---
Date of Service: August 13, 2023 Made aware by RN of BSG 47 this a.m. Patient home insulin pump ongoing despite n.p.o. status. AP Hypoglycemia DM2 on insulin pump Hold insulin pump Pharmacy glycemic control consultation Patient agreeable to above recommendations.
[2023-08-13 06:54] LABS: Basophils # (auto) 0.05 K/uL (0.00-0.20); Basophils % (auto) 0.9 %; Eosinophils # (auto) 0.14 K/uL (0.00-0.50); Eosinophils % (auto) 2.5 %; Hematocrit (blood only) 37.2 % (37.0-47.0); Hemoglobin 11.9 g/dl (12.0-16.0); Immature Granulocytes # (auto) 0.02 K/uL (0.01-0.20); Immature Granulocytes % (auto) 0.4 %; Lymphocytes # (auto) 0.81 K/uL (1.20-3.40); Lymphocytes % (auto) 14.5 %; Mean Corpuscular Hemoglobin 27.7 pg (25.0-34.0); Mean Corpuscular Volume 86.7 fL (80.0-100.0); Mean Platelet Volume 9.2 fL (9.4-12.4); Monocytes # (auto) 0.41 K/uL (0.11-0.59); Monocytes % (auto) 7.3 %; Neutrophils # (auto) 4.17 K/uL (1.40-6.50); Neutrophils % (auto) 74.4 %; Platelet Count 71 K/uL (130-400); RDW Coefficient of Variation 14.4 % (11.5-14.5); RDW Standard Deviation 45.3 fL (36.4-46.3); Red Blood Count 4.29 M/uL (4.20-5.40)
[2023-08-13 07:23] LABS: Albumin Globulin Ratio 1.2 (0.9-2); Albumin Level 3.6 gm/dl (3.4-5.0); BUN Creatinine Ratio 9.8 (10-20); Bilirubin,Total 0.6 mg/dl (0.2-1.0); Calcium 8.2 mg/dl (8.6-10.3); Creatinine Clr Calc Pharmacy 71.3 ml/min; Est GFR (African American) 65.9 ml/min; Est GFR (Non-African American) 56.8 ml/min; Magnesium 1.9 mg/dl (1.7-2.4); Phosphorus 4.1 mg/dl (2.5-4.9); Potassium 3.7 mmol/L (3.5-5.1); Total Protein 6.6 gm/dl (6.0-8.3)
[2023-08-13 07:27] LABS: Ovalocytes 1+
[2023-08-13 07:32] LABS: Folate (Folic Acid),Ser orPlas 6.92 ng/ml (>5.38)
--- NOTE | 2023-08-13 07:51 | Gastroenterology Progress Note ---
Date of Service August 13, 2023 Assessment & Plan (1) Hematemesis: (2) Bright red rectal bleeding: (3) Liver cirrhosis secondary to MENDEZ: Plan 53 y/o female with PMhx MENDEZ cirrhosis c/b G1EV, PHG, with low MELD, admitted after presenting with 2 weeks of BRBPR w/ loose stools (acute on chronic), and reports 2 episodes of pink-tinged emesis yesterday which has not recurred. H/H overall stable, BUN not elevated, and continues to have low MELD (7). VSS. She has suggestion of distal sigmoid colitis on CTAP. Abd soft, nontender. On exam no evidence for active GIB, no asterixis - no signs of HE or ascites. Overnight no GIB - no stool, no vomiting. Has intermittent nausea, pt reports chronic, has gastroparesis, and on Ozempic for DM. - When/if pt has stool, please send stool for C diff, GI pathogen Panel - will r/o infectious colitis - Please cover with empiric ABX - Continue IV PPI gtt - NPO for now but consider advancing to clears later today if no n/v - Trend H/H, transfuse PRN - For now would not plan inpt scope unless she has recurrent bleeding or significant drop in HGB; would keep plan for OP colonoscopy this spring and would add EGD to this - Avoid APAP > 2 gm daily, hepatotoxins, ETOH - Daily weights - Avoid NSAIDs - After DC pt should f/u with her regular garde manager as OP - hasn't seen since 11/2022 Thank you for allowing us to participate in the care of this patient. Please call with any acute changes, questions or concerns. Please see addendum below with additional recommendation from my supervising physician. Admission and Anticipated Discharge Date Admission Date: August 11, 2023 Supervising Physician Co-Signing Physician Notes I personally saw and evaluated the patient on 08/13/2023 with Kayla Bennett PA-C and agree with her findings and plan of care. Abdomen soft and non-tender. Known MENDEZ cirrhosis with small varices, obese now with reports of intermittent rectal bleeding- hematochezia at times, ? pink tinged emesis prior to admission, none since admission and no overt hematemesis. no bun rise noted or significant drop in hgb over the past 2 days, bp/hr stable. She has not had a bowel movement here. Meld 7, low platelets. Concerns for possible colitis (sigmoid) on imaging - send for C. diff and stool enteric panel to rule out any infectious etiologies. Advance diet as tolerated. Plan for outpatient EGD and colonoscopy. Given stable H/H and no overt bleeding here no plan for inpatient endoscopy. She should follow up with her garde manager as outpatient. Agree with further plan of care as documented. GI will sign off. Please call back with questions. Jazzy Chu, Gastroenterology and Hepatology Subjective Patient seen and examined, chart reviewed. Overnight pt w/o GIB - no hematemesis, melena, hematochezia. This AM after pills (she takes with chocolate milk) had some dry heaves. No vomiting. Pt asking for popscicle. Has chronic abd pain - unchanged. Labs stable - H/H, BUN. Review of Systems Review of Systems: All systems reviewed & are unremarkable except as noted in HPI & below Physical Exam Constitutional: well developed, well nourished and comfortable; no acute distress Neck: trachea midline Respiratory: normal respiratory effort, lungs clear to auscultation Cardiovascular: RRR, no murmur, no edema Gastrointestinal (Abdomen): Inspection/Auscultation: abdomen not distended bs x 4 quads, abd soft, mild diffuse tenderness, no rebound, guarding Skin: no rashes, warm and dry Results & Data Vital Signs (Past 12 Hours) Vital Signs Temp Pulse Pulse Resp BP Pulse Ox O2 Del Method 08/13/23 02:47 36.6 C 76 18 114/73 96 Nasal Cannula 08/13/23 01:42 76 08/13/23 01:32 Nasal Cannula 08/12/23 23:50 36.7 C 80 18 118/73 98 Nasal Cannula 08/12/23 23:07 78 08/12/23 21:21 74 19 136/84 92 Room Air O2 Flow Rate 08/13/23 02:47 08/13/23 01:42 08/13/23 01:32 2 08/12/23 23:50 2 08/12/23 23:07 08/12/23 21:21 Laboratory Results 08/13/23 08/13/23 08/13/23 Range/Units 06:29 06:19 05:57 WBC 5.60 (4.8-10.8) K/ul RBC 4.29 (4.20-5.40) M/uL Hgb 11.9 L (12.0-16.0) g/dl Hct 37.2 (37.0-47.0) % MCV 86.7 (80.0-100.0) fL MCH 27.7 (25.0-34.0) pg MCHC 32.0 (32.0-36.0) g/dL RDW Std Deviation 45.3 (36.4-46.3) fL RDW Coeff of Bailey 14.4 (11.5-14.5) % Plt Count 71 L (130-400) K/uL MPV 9.2 L (9.4-12.4) fL Immature Gran % (Auto) 0.4 % Neut % (Auto) 74.4 % Lymph % (Auto) 14.5 % [place] % (Auto) 7.3 % Eos % (Auto) 2.5 % Baso % (Auto) 0.9 % Neut # (Auto) 4.17 (1.40-6.50) K/uL Lymph # (Auto) 0.81 L (1.20-3.40) K/uL [place] # (Auto) 0.41 (0.11-0.59) K/uL Eos # (Auto) 0.14 (0.00-0.50) K/uL Baso # (Auto) 0.05 (0.00-0.20) K/uL Immature Gran # (Auto) 0.02 (0.01-0.20) K/uL Ovalocytes 1+ Peripher Smr Path Cons Pending Sodium 142 (136-145) mmol/L Potassium 3.7 (3.5-5.1) mmol/L Chloride 106 (98-107) mmol/L Carbon Dioxide 32 (21-32) mmol/L Anion Gap 4 (3-11) BUN 11 (6-23) mg/dl Creatinine 1.12 (0.6-1.2) mg/dl Est Cr Clr Drug Dosing 71.3 ml/min Est GFR ( Amer) 65.9 ml/min Est GFR (Non-Af Amer) 56.8 ml/min BUN/Creatinine Ratio 9.8 L (10-20) Glucose 145 H (70-99(Fasting)) mg/dl POC Glucose 159 H 47 L* (70-99) mg/dl Calcium 8.2 L (8.6-10.3) mg/dl Phosphorus 4.1 (2.5-4.9) mg/dl Magnesium 1.9 (1.7-2.4) mg/dl Iron 62 (35-150) mcg/dl TIBC 279 (250-450) mcg/dl Unsaturated IBC 217 (155-355) mcg/dl Transferrin % Sat 22 (15-50) % Ferritin 74.0 (8-388) ng/ml Total Bilirubin 0.6 (0.2-1.0) mg/dl AST 39 (13-39) U/L ALT 10 (7-52) U/L Alkaline Phosphatase 102 (34-104) U/L Total Protein 6.6 (6.0-8.3) gm/dl Albumin 3.6 (3.4-5.0) gm/dl Globulin 3.0 (2.5-4.0) gm/dl Albumin/Globulin Ratio 1.2 (0.9-2) Vitamin B12 279 (180-914) pg/ml Folate 6.92 (>5.38) ng/ml 08/13/23 08/12/23 08/12/23 Range/Units 00:58 23:53 23:00 WBC (4.8-10.8) K/ul RBC (4.20-5.40) M/uL Hgb 11.2 L (12.0-16.0) g/dl Hct 33.5 L (37.0-47.0) % MCV (80.0-100.0) fL MCH (25.0-34.0) pg MCHC (32.0-36.0) g/dL RDW Std Deviation (36.4-46.3) fL RDW Coeff of Bailey (11.5-14.5) % Plt Count (130-400) K/uL MPV (9.4-12.4) fL Immature Gran % (Auto) % Neut % (Auto) % Lymph % (Auto) % [place] % (Auto) % Eos % (Auto) % Baso % (Auto) % Neut # (Auto) (1.40-6.50) K/uL Lymph # (Auto) (1.20-3.40) K/uL [place] # (Auto) (0.11-0.59) K/uL Eos # (Auto) (0.00-0.50) K/uL Baso # (Auto) (0.00-0.20) K/uL Immature Gran # (Auto) (0.01-0.20) K/uL Ovalocytes Peripher Smr Path Cons Sodium (136-145) mmol/L Potassium (3.5-5.1) mmol/L Chloride (98-107) mmol/L Carbon Dioxide (21-32) mmol/L Anion Gap (3-11) BUN (6-23) mg/dl Creatinine (0.6-1.2) mg/dl Est Cr Clr Drug Dosing ml/min Est GFR ( Amer) ml/min Est GFR (Non-Af Amer) ml/min BUN/Creatinine Ratio (10-20) Glucose (70-99(Fasting)) mg/dl POC Glucose 79 69 L* (70-99) mg/dl Calcium (8.6-10.3) mg/dl Phosphorus (2.5-4.9) mg/dl Magnesium (1.7-2.4) mg/dl Iron (35-150) mcg/dl TIBC (250-450) mcg/dl Unsaturated IBC (155-355) mcg/dl Transferrin % Sat (15-50) % Ferritin (8-388) ng/ml Total Bilirubin (0.2-1.0) mg/dl AST (13-39) U/L ALT (7-52) U/L Alkaline Phosphatase (34-104) U/L Total Protein (6.0-8.3) gm/dl Albumin (3.4-5.0) gm/dl Globulin (2.5-4.0) gm/dl Albumin/Globulin Ratio (0.9-2) Vitamin B12 (180-914) pg/ml Folate (>5.38) ng/ml 08/12/23 08/12/23 08/12/23 Range/Units 21:26 17:07 15:30 WBC (4.8-10.8) K/ul RBC (4.20-5.40) M/uL Hgb 11.5 L (12.0-16.0) g/dl Hct 34.8 L (37.0-47.0) % MCV (80.0-100.0) fL MCH (25.0-34.0) pg MCHC (32.0-36.0) g/dL RDW Std Deviation (36.4-46.3) fL RDW Coeff of Bailey (11.5-14.5) % Plt Count (130-400) K/uL MPV (9.4-12.4) fL Immature Gran % (Auto) % Neut % (Auto) % Lymph % (Auto) % [place] % (Auto) % Eos % (Auto) % Baso % (Auto) % Neut # (Auto) (1.40-6.50) K/uL Lymph # (Auto) (1.20-3.40) K/uL [place] # (Auto) (0.11-0.59) K/uL Eos # (Auto) (0.00-0.50) K/uL Baso # (Auto) (0.00-0.20) K/uL Immature Gran # (Auto) (0.01-0.20) K/uL Ovalocytes Peripher Smr Path Cons Sodium (136-145) mmol/L Potassium (3.5-5.1) mmol/L Chloride (98-107) mmol/L Carbon Dioxide (21-32) mmol/L Anion Gap (3-11) BUN (6-23) mg/dl Creatinine (0.6-1.2) mg/dl Est Cr Clr Drug Dosing ml/min Est GFR ( Amer) ml/min Est GFR (Non-Af Amer) ml/min BUN/Creatinine Ratio (10-20) Glucose (70-99(Fasting)) mg/dl POC Glucose 70 96 (70-99) mg/dl Calcium (8.6-10.3) mg/dl Phosphorus (2.5-4.9) mg/dl Magnesium (1.7-2.4) mg/dl Iron (35-150) mcg/dl TIBC (250-450) mcg/dl Unsaturated IBC (155-355) mcg/dl Transferrin % Sat (15-50) % Ferritin (8-388) ng/ml Total Bilirubin (0.2-1.0) mg/dl AST (13-39) U/L ALT (7-52) U/L Alkaline Phosphatase (34-104) U/L Total Protein (6.0-8.3) gm/dl Albumin (3.4-5.0) gm/dl Globulin (2.5-4.0) gm/dl Albumin/Globulin Ratio (0.9-2) Vitamin B12 (180-914) pg/ml Folate (>5.38) ng/ml 08/12/23 08/12/23 08/12/23 Range/Units 11:06 08:44 08:21 WBC (4.8-10.8) K/ul RBC (4.20-5.40) M/uL Hgb 11.3 L (12.0-16.0) g/dl Hct 35.2 L (37.0-47.0) % MCV (80.0-100.0) fL MCH (25.0-34.0) pg MCHC (32.0-36.0) g/dL RDW Std Deviation (36.4-46.3) fL RDW Coeff of Bailey (11.5-14.5) % Plt Count (130-400) K/uL MPV (9.4-12.4) fL Immature Gran % (Auto) % Neut % (Auto) % Lymph % (Auto) % [place] % (Auto) % Eos % (Auto) % Baso % (Auto) % Neut # (Auto) (1.40-6.50) K/uL Lymph # (Auto) (1.20-3.40) K/uL [place] # (Auto) (0.11-0.59) K/uL Eos # (Auto) (0.00-0.50) K/uL Baso # (Auto) (0.00-0.20) K/uL Immature Gran # (Auto) (0.01-0.20) K/uL Ovalocytes Peripher Smr Path Cons Sodium (136-145) mmol/L Potassium (3.5-5.1) mmol/L Chloride (98-107) mmol/L Carbon Dioxide (21-32) mmol/L Anion Gap (3-11) BUN (6-23) mg/dl Creatinine (0.6-1.2) mg/dl Est Cr Clr Drug Dosing ml/min Est GFR ( Amer) ml/min Est GFR (Non-Af Amer) ml/min BUN/Creatinine Ratio (10-20) Glucose (70-99(Fasting)) mg/dl POC Glucose 106 H 53 L* (70-99) mg/dl Calcium (8.6-10.3) mg/dl Phosphorus (2.5-4.9) mg/dl Magnesium (1.7-2.4) mg/dl Iron (35-150) mcg/dl TIBC (250-450) mcg/dl Unsaturated IBC (155-355) mcg/dl Transferrin % Sat (15-50) % Ferritin (8-388) ng/ml Total Bilirubin (0.2-1.0) mg/dl AST (13-39) U/L ALT (7-52) U/L Alkaline Phosphatase (34-104) U/L Total Protein (6.0-8.3) gm/dl Albumin (3.4-5.0) gm/dl Globulin (2.5-4.0) gm/dl Albumin/Globulin Ratio (0.9-2) Vitamin B12 (180-914) pg/ml Folate (>5.38) ng/ml (1) Hematemesis Nausea presence: without nausea Qualified Code(s): K92.0 - Hematemesis
--- NOTE | 2023-08-13 08:08 | Electrocardiogram Report ---
Test Reason : Blood Pressure : / mmHG Vent. Rate : 080 BPM Atrial Rate : 080 BPM P-R Int : 156 ms QRS Dur : 090 ms QT Int : 418 ms P-R-T Axes : 057 000 121 degrees QTc Int : 482 ms Normal sinus rhythm Poor R wave progression, consider anterior SD vs. lead placement vs. LVH Diffuse Minor Nonspecific T wave abnormality Abnormal ECG When compared with ECG of 15-DEC-2020 03:11, No significant change was found Confirmed by Terence Almonte ([id number]) on 08/13/2023 8:08:06 AM Referred By: REFERRED SELF Confirmed By:Terence Almonte
[2023-08-13] MEDS: ONDANSETRON INJ 2 MG/ML 2 ML VIAL IV PRN (08:44)
--- NOTE | 2023-08-13 11:53 | Pharmacy Report ---
Pharmacy Glycemic Short Note 2 - Date of Service August 13, 2023 - Glycemic Short BSG Results (Last 24 hours): 08/12/23 08/12/23 08/12/23 15:30 21:26 23:53 Glucose POC Glucose 96 70 69 L* 08/13/23 08/13/23 08/13/23 00:58 05:57 06:19 Glucose POC Glucose 79 47 L* 159 H 08/13/23 06:29 Glucose 145 H POC Glucose OUTPATIENT ANTIDIABETIC REGIMEN: * Novolin R regular insulin pump * per recent [facility] notes * Basal rate: 3.8 units/hr from 12a-8a, 6 units/hr from 8a-12 (total ~ 126 units/day) * Bolus: hardly using (was 15 units for breakfast and lunch, 22 units for dinner, 10 units for chocolate milk snack before bed) * CR: 1:3 * metformin 1000 BIDM * Semaglutide 2mg SQ weekly * a1c: 6% 08/12/23 ASSESSMENT: * Patient currently NPO, presenting with 2 weeks loose stool and hematemesis. Patient's insulin pump turned off this morning due to persistent lows (likely due to dexcom issue), which were treated. * Upon review of May 2023 outpatient [facility] clinic managing insulin pump, it seems like total daily dose is basal heavy. Per patient she does still enter number of carbs (CR 1:3) when she eats for a prandial bolus. * As patient is NPO and given lows this morning, will await lunch BSG to ensure BSGs have stabilized and will proceed with a conservative basal regimen to start. Lunch BSG 88 mg/dL. Will hold off on any basal insulin for now and plan a scale for this evening based on BSG. PLAN FOR INPATIENT GLYCEMIC CONTROL: * Hold outpatient oral diabetes medications * Basal insulin * Lantus scale this evening (0, 15, 25) units SQ this evening based on BSG * Bolus insulin * NovoLog per scale ACHS or Q6hrs while NPO * Goal Range: Low 110 mg/dL - High 140 mg/dL * Correction Factor: 15 mg/dL/unit * Nutritional / Prandial insulin per carb ratio of 1 unit per 5 grams CHO consumed
[2023-08-13] MEDS: INSULIN ASPART PER UNIT CHARGE SC SCH ×2 (12:02→16:57)
[2023-08-13] MEDS: ACETAMINOPHEN 500 MG TAB PO ONE (16:11)
[2023-08-13] MEDS: LANTUS PER UNIT CHARGE SC SCH (20:44)
--- NOTE | 2023-08-13 21:41 | Hospitalist Progress Note ---
Date of Service August 13, 2023 Assessment & Plan (1) Hematemesis: Plan: 53-year-old female with past medical history significant for type 2 diabetes, diabetic retinopathy, hyperlipidemia, diabetic gastroparesis, diabetic polyneuropathy, obstructive sleep apnea on CPAP, hypertension, portal hypertension, esophageal varices, cirrhosis of liver without ascites, GERD, morbid obesity, history of stroke with left-sided weakness ambulates with a cane, psychogenic nonepileptic seizures, chronic pain syndrome, thrombocytopenia, iron deficiency anemia, depression, PTSD, history of COVID presenting with blood per rectum for 2 weeks with 2 episodes of hematemesis. Patient says she is on Ozempic since June 2022 she gets on and off diarrhea. Last 2 weeks she is noticing blood whenever she has diarrhea. Patient says she had history of bleeding from polyps in the past. And she has appointment for colonoscopy in September. She also has gastroparesis and some days she gets vomiting. On day of admission, she vomited couple of times and it was a bile and pink-colored vomitus which prompted her to come to the ER. Hematemesis Hx of MENDEZ Cirrhosis with Varices 2 episodes day of admission Also ongoing blood per rectum for the last 2 weeks and there is a plan for colonoscopy in September as per patient. History of polyp bleed as per patient Patient has history of cirrhosis and esophageal varices and thrombocytopenia. Hemoglobin stable at 12.2- has remained stable at about 11 on multiple repeats MELD 7 Continue Protonix drip Advancing diet, currently on clears. 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 brick veneer maker on discharge On Lasix and spironolactone for cirrhosis which we will continue Monitor for volume overload Colitis Pt with reports of bloody diarrhea at home Abd/pelvis CT noting colitis, fatty liver infiltration GI consulted, appreciate recs -stool culture, still uncollected -empiric abx with cipro and flagyl -continue ppi drip Currently NPO, continue to monitor Pain control as needed Anemia Hgb decreased to 11 as above Anemia workup with iron studies, ferritin, b12 and folate all normal Thrombocytopenia Platelets on lower end, 70K Peripheral smear reviewed Diabetes type 2 Hypoglycemia episodes On insulin pump which patient wants to keep on Reports on 08/11 that pt has been having hypoglycemic episodes while NPO Hold home po medications, also on ozempic at home ISS Currently on clears and advancing diet as tolerated. Possible QT prolongation Pt on multiple qt prolonging meds Daily EKGS, continue to monitor -qtc currently 482 Diabetic gastroparesis Antiemetics as needed Obstructive sleep apnea On CPAP CPAP qhs while here History of stroke and left-sided weakness Ambulates with cane On statin Hypertension On atenolol , losartan and diuretics Will monitor, currently well controlled Hyperlipidemia On statin Chronic pain Continue buprenorphine patch Depression on Lexapro DVT prophylaxis: SCDs, anemic and thrombocytopenic CODE STATUS: Full code Diet: advancing as tolerated Dispo: PT/OT ordered, recommending return home Admission and Anticipated Discharge Date Admission Date: August 11, 2023 Subjective States that she had an episode of vomitting. Has been taking meds with sips of water. Would like to advance diet. Had [place]. Review of Systems Review of Systems: All systems reviewed & are unremarkable except as noted in Subjective Physical Exam Physical Exam: General: Alert, oriented. No acute distress Skin: No noted rashes or bruises Psych:appropriate mood and affect Neuro: No gross deficits HEENT: NC/AT Chest: Nontender to palpation. CV: RRR, Normal s1, s2. No murmurs appreciated Resp: Breath sounds clear bilaterally, no increased effort of breathing. Abdomen: Soft, nontender, nondistended. Extremities: Trace edema in lower extremities bilaterally. Results & Data Results & Data Vital Signs (Past 12 Hours) Vital Signs Temp Pulse Resp BP Pulse Ox O2 Del Method O2 Flow Rate 08/13/23 15:51 36.9 C 83 18 132/78 94 Room Air 08/13/23 11:54 36.8 C 80 19 104/64 93 Nasal Cannula 2 08/13/23 08:34 36.8 C 78 18 133/73 98 Nasal Cannula 1 08/13/23 08:06 36.6 C 82 18 128/82 99 Nasal Cannula 2 (1) Hematemesis Nausea presence: without nausea Qualified Code(s): K92.0 - Hematemesis
[2023-08-14 06:11] LABS: Albumin Globulin Ratio 1.3 (0.9-2); Albumin Level 3.5 gm/dl (3.4-5.0); BUN Creatinine Ratio 9.8 (10-20); Bilirubin,Total 0.5 mg/dl (0.2-1.0); Calcium 7.9 mg/dl (8.6-10.3); Creatinine Clr Calc Pharmacy 65.1 ml/min; Est GFR (African American) 58.8 ml/min; Est GFR (Non-African American) 50.7 ml/min; Globulin 2.7 gm/dl (2.5-4.0); Magnesium 1.8 mg/dl (1.7-2.4); Phosphorus 4.5 mg/dl (2.5-4.9); Potassium 3.9 mmol/L (3.5-5.1); Total Protein 6.2 gm/dl (6.0-8.3)
[2023-08-14 06:30] LABS: Basophils # (auto) 0.04 K/uL (0.00-0.20); Basophils % (auto) 0.9 %; Eosinophils # (auto) 0.17 K/uL (0.00-0.50); Eosinophils % (auto) 3.8 %; Hematocrit (blood only) 35.2 % (37.0-47.0); Hemoglobin 11.3 g/dl (12.0-16.0); Immature Granulocytes # (auto) 0.01 K/uL (0.01-0.20); Immature Granulocytes % (auto) 0.2 %; Lymphocytes # (auto) 1.19 K/uL (1.20-3.40); Lymphocytes % (auto) 26.6 %; Mean Corpuscular Hemoglobin 28.2 pg (25.0-34.0); Mean Corpuscular Hgb Conc 32.1 g/dL (32.0-36.0); Mean Corpuscular Volume 87.8 fL (80.0-100.0); Mean Platelet Volume 9.6 fL (9.4-12.4); Monocytes # (auto) 0.41 K/uL (0.11-0.59); Monocytes % (auto) 9.2 %; Neutrophils # (auto) 2.65 K/uL (1.40-6.50); Neutrophils % (auto) 59.3 %; Platelet Count 62 K/uL (130-400); RDW Coefficient of Variation 14.5 % (11.5-14.5); RDW Standard Deviation 46.6 fL (36.4-46.3); Red Blood Count 4.01 M/uL (4.20-5.40); White Blood Count 4.47 K/ul (4.8-10.8)
[2023-08-14] MEDS: LANTUS PER UNIT CHARGE SC SCH (09:14)
--- NOTE | 2023-08-14 10:39 | Pharmacy Report ---
Pharmacy Glycemic Short Note 2 - Date of Service August 14, 2023 - Glycemic Short BSG Results (Last 24 hours): 08/13/23 08/13/23 08/13/23 11:56 15:50 20:17 Glucose POC Glucose 88 112 H 137 H 08/13/23 08/14/23 08/14/23 23:27 03:52 05:36 Glucose 141 H POC Glucose 156 H 142 H 08/14/23 07:18 Glucose POC Glucose 179 H OUTPATIENT ANTIDIABETIC REGIMEN: * Novolin R regular insulin pump * per recent [facility] notes * Basal rate: 3.8 units/hr from 12a-8a, 6 units/hr from 8a-12 (total ~ 126 units/day) * Bolus: hardly using (was 15 units for breakfast and lunch, 22 units for dinner, 10 units for chocolate milk snack before bed) * CR: 1:3 * metformin 1000 BIDM * Semaglutide 2mg SQ weekly * a1c: 6% 08/12/23 ASSESSMENT: * Patient currently NPO, presenting with 2 weeks loose stool and hematemesis. Patient's insulin pump turned off this morning due to persistent lows (likely due to dexcom issue), which were treated. * Upon review of May 2023 outpatient [facility] clinic managing insulin pump, it seems like total daily dose is basal heavy. Per patient she does still enter number of carbs (CR 1:3) when she eats for a prandial bolus. * As patient is NPO and given lows this morning, will await lunch BSG to ensure BSGs have stabilized and will proceed with a conservative basal regimen to start. Lunch BSG 88 mg/dL. Will hold off on any basal insulin for now and plan a scale for this evening based on BSG. 08/13: * Patient received a total of 17 units of insulin yesterday, 15 of which were basal. * BSGs over the past 24 hours (after pump stopped) were [phone] mg/dL. Given BSGs have stabilized and uptrended, will order an increased dose of lantus this morning and a scale this evening and monitor trend. This is still well below outpatient requirements. Patient is ordered a diet but is eating minimally given nausea. PLAN FOR INPATIENT GLYCEMIC CONTROL: * Hold outpatient oral diabetes medications * Basal insulin * Lantus 25 units X 1 this morning * Lantus scale this evening (0, 10, 20) units SQ this evening based on BSG * Bolus insulin * NovoLog per scale ACHS or Q6hrs while NPO * Goal Range: Low 110 mg/dL - High 140 mg/dL * Correction Factor: 15 mg/dL/unit * Nutritional / Prandial insulin per carb ratio of 1 unit per 5 grams CHO consumed
--- NOTE | 2023-08-14 10:52 | Electrocardiogram Report ---
Test Reason : Blood Pressure : / mmHG Vent. Rate : 082 BPM Atrial Rate : 082 BPM P-R Int : 140 ms QRS Dur : 078 ms QT Int : 462 ms P-R-T Axes : 052 -05 081 degrees QTc Int : 539 ms Normal sinus rhythm Poor R wave progression, consider anterior VT vs. lead placement vs. LVH Minor Diffuse Nonspecific T wave abnormality Abnormal ECG When compared with ECG of 13-AUG-2023 06:21, QT has lengthened Confirmed by Terence Almonte ([id number]) on 08/14/2023 10:52:09 AM Referred By: REFERRED SELF Confirmed By:Terence Almonte
[2023-08-14] MEDS: INSULIN ASPART PER UNIT CHARGE SC SCH (12:56)
--- NOTE | 2023-08-14 13:38 | Discharge Summary ---
Discharge Summary Date of Service August 14, 2023 Notes For Next Care Provider Pt on multiple qt prolonging meds, please monitor qtc. 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 Please ensure close follow up with Hepatology Medication Changes From Visit Flagyl 500mg q8h x 8 more days Cefdinir 300mg BID x 8 more days omeprazole switched to pantoprazole 40mg BID Admission HPI Per Admitting Provider 53-year-old female with past medical history significant for type 2 diabetes, diabetic retinopathy, hyperlipidemia, diabetic gastroparesis, diabetic polyneuropathy, obstructive sleep apnea on CPAP, hypertension, portal hyper tension, esophageal varices, cirrhosis of liver without ascites, GERD, morbid obesity, history of stroke with left-sided weakness ambulates with a cane, psychogenic nonepileptic seizures, chronic pain syndrome, thrombocytopenia, iron deficiency anemia, depression, PTSD, history of COVID comes because of having blood per rectum going on for last 2 weeks and today she had 2 episodes of hematemesis. Patient says she is on Ozempic since June 2022 she gets on and off diarrhea. Last 2 weeks she is noticing blood whenever she has diarrhea. Patient says she had history of bleeding from polyps in the past. And she has appointment for colonoscopy in September. She also has gastroparesis and some days she gets vomiting. Today she vomited couple of times and it was a bile and pink-colored vomitus which prompted her to come to the ER. Since yesterday she noticed pain in the left side of the abdomen traveling up to the rib cage and into the shoulder region on the left side. Denies any chest pain. No shortness of breath. Has a mild headache. No runny nose or sore throat. No cough. Micturating okay. No rash. She gets swelling in the legs on and off. Currently resting comfortably and hemodynamically stable. Past medical history. As mentioned above Past surgical history. Colonoscopy. EGD. EGD with endoscopic ultrasound. EGD with biopsy. Neurostimulator. Endometrial ablation. Injection of lumbosacral spine. Ligation of oviducts. Social history. . No smoking. No alcohol use. No drug use. Family history. Mother had COPD. CAD and CABG. Depression. Father had diabetes. CHF. Stroke. Brother has hypertension. Brother has diabetes. Principal Dx & Hospital Course #1 = Principal Diagnosis (1) Hematemesis: 53-year-old female with past medical history significant for type 2 diabetes, diabetic retinopathy, hyperlipidemia, diabetic gastroparesis, diabetic polyneuropathy, obstructive sleep apnea on CPAP, hypertension, portal hypertension, esophageal varices, cirrhosis of liver without ascites, GERD, morbid obesity, history of stroke with left-sided weakness ambulates with a cane, psychogenic nonepileptic seizures, chronic pain syndrome, thrombocytopenia, iron deficiency anemia, depression, PTSD, history of COVID presenting with blood per rectum for 2 weeks with 2 episodes of hematemesis. Patient says she is on Ozempic since June 2022 she gets on and off diarrhea. 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 Patient says she had history of bleeding from polyps in the past. And she has appointment for colonoscopy in September. She also has gastroparesis and some days she gets vomiting. On day of admission, she vomited couple of times and it was a bile and pink-colored vomitus which prompted her to come to the ER. Hematemesis Hx of MENDEZ Cirrhosis with Varices 2 episodes of hematemesis day of admission Also ongoing blood per rectum for the last 2 weeks and there is a plan for colonoscopy in September as per patient. History of polyp bleed as per patient Patient has history of cirrhosis and esophageal varices and thrombocytopenia. Hemoglobin stable at 12.2- has remained stable at about 11 on multiple repeats MELD 7 Protonix drip transitioned to pantoprazole 40mg BID Advanced diet GI consulted, recommended the following: -advance diet as tolerated -inpatient endoscopy/colonoscopy only if significant drop in hgb (remained stable) -Keep outpt appt for colonoscopy and EGD otherwise -avoid NSAIDs, high dose tylenol, alcohol -daily weights -due for follow up with outpt field irrigation worker on discharge On Lasix and spironolactone for cirrhosis which were continued Colitis Pt with reports of bloody diarrhea at home Abd/pelvis CT noting colitis, fatty liver infiltration GI consulted, appreciate recs -stool culture, remained uncollected -empiric abx with cipro and flagyl- discharged with 8 days of cefdinir and flagyl -continue ppi drip (transitioned to pantoprazole 40mg BID on discharge) Pain control as needed EVA Cr elevated at 1.2 on discharge PCP follow up for close monitoring in the week after discharge Anemia Hgb decreased to 11 as above Anemia workup with iron studies, ferritin, b12 and folate all normal Thrombocytopenia Platelets on lower end, 70K Peripheral smear reviewed PCP follow up Diabetes type 2 Hypoglycemia episodes On insulin pump which patient wants to keep on Reports on 08/11 that pt has been having hypoglycemic episodes while NPO ISS while hospitalized Resume home meds on discharge with pcp follow up. Possible QT prolongation Pt on multiple qt prolonging meds Daily EKGS, continue to monitor -qtc currently 482 PCP followup for polypharmacy Diabetic gastroparesis Antiemetics as needed Obstructive sleep apnea On CPAP CPAP qhs History of stroke and left-sided weakness Ambulates with cane On statin Hypertension On atenolol , losartan and diuretics Monitored, currently well controlled Hyperlipidemia On statin, continue Chronic pain Continue buprenorphine patch Depression on Lexapro, continue Discharge Exam General: Alert, oriented. No acute distress Skin: No noted rashes or bruises Psych:appropriate mood and affect Neuro: difficulty with movements in the bed. HEENT: NC/AT Chest: Nontender to palpation. CV: RRR, Normal s1, s2. No murmurs appreciated Resp: Breath sounds clear bilaterally, no increased effort of breathing. Abdomen: Soft, nontender, nondistended. Extremities: Trace edema in lower extremities bilaterally. Updated Medication List Medication Instructions Recorded Confirmed Type albuterol sulfate 90 mcg/actuation 2 puff inhalation Q6 PRN Shortness 08/11/23 08/11/23 History aerosol inhaler Of Breath Or Wheezing atenolol 100 mg tablet 100 mg PO BID 08/11/23 08/11/23 History atorvastatin 40 mg tablet 40 mg PO DAILYBL 08/11/23 08/11/23 History baclofen 10 mg tablet 10 mg PO TID 08/11/23 08/11/23 History buprenorphine 5 mcg/hour weekly 1 patch topical WK 08/11/23 08/11/23 History transdermal patch dicyclomine 20 mg tablet 20 mg PO HS 08/11/23 08/11/23 History escitalopram oxalate 20 mg tablet 20 mg PO DAILY 08/11/23 08/11/23 History eszopiclone 2 mg tablet 2 mg PO HS 08/11/23 08/11/23 History furosemide 40 mg tablet 40 mg PO QAM 08/11/23 08/11/23 History hydroxyzine HCl 25 mg tablet 25 mg PO TID 08/11/23 08/11/23 History insulin regular human 100 unit/mL 0 unit continuous subcutaneous 08/11/23 08/11/23 History injection solution (Novolin R infusion DIRECTED Regular U-100 Insulin) loratadine 10 mg tablet 10 mg PO QAM 08/11/23 08/11/23 History losartan 25 mg tablet 25 mg PO HS 08/11/23 08/11/23 History magnesium oxide 400 mg PO DAILY 08/11/23 08/11/23 History meclizine 25 mg tablet 25 mg PO TID PRN .dizzy 08/11/23 08/11/23 History metformin 1,000 mg tablet 1,000 mg PO BIDM 08/11/23 08/11/23 History metoclopramide HCl 5 mg tablet 5 mg PO AC PRN Nausea 08/11/23 08/11/23 History naloxone 4 mg/actuation nasal spray 4 mg intranasal DIRECTED PRN 08/11/23 08/11/23 History opiod od ondansetron 8 mg disintegrating 8 mg translingual Q8 PRN Nausea 08/11/23 08/11/23 History tablet potassium chloride 10 mEq 10 meq PO BID 08/11/23 08/11/23 History tablet,extended release pregabalin 100 mg capsule 100 mg PO TID 08/11/23 08/11/23 History semaglutide 2 mg/dose (8 mg/3 mL) 2 mg subcut .WEEKLY 08/11/23 08/11/23 History subcutaneous pen injector (Ozempic) spironolactone 50 mg tablet 50 mg PO QAM 08/11/23 08/11/23 History trazodone 100 mg tablet 100 - 200 mg PO HS 08/11/23 08/11/23 History cefdinir 300 mg capsule 300 mg PO BID #16 caps 08/14/23 Rx metronidazole 500 mg tablet 500 mg PO TID #24 tabs 08/14/23 Rx pantoprazole 40 mg tablet,delayed 40 mg PO BID #60 tabs 08/14/23 Rx release Hospital Stay Data Consultations 08/11/23 22:59 ED Decision to Admit Stat 08/12/23 08:00 Consult Gastroenterology Routine Diagnostic Imagining Performed 08/11/23 19:48 CT Abd and Pelvis [CT abd pelvis IV con only] Stat Abdomen/Pelvis CT 08/11/23 19:48 Exam(s): CT ABDOMEN + PELVIS With Contrast IV Amt: 88ml EXAM: CT Abdomen and Pelvis With Intravenous Contrast CLINICAL HISTORY: Reason for exam: left sided abd pain; hx MENDEZ/splenomegaly. TECHNIQUE: Axial computed tomography images of the abdomen and pelvis with intravenous contrast. CTDI is 27.44 mGy and DLP is 1511.06 mGy-cm. Automated exposure control was utilized for the study. A dose lowering technique was utilized adhering to the principles of ALARA. CONTRAST: Patient received 88ml of IV contrast COMPARISON: No relevant prior studies available. FINDINGS: Lung bases: Unremarkable. No mass. No consolidation. ABDOMEN: Liver: Fatty infiltration. Nodular liver contour, correlate for cirrhosis. No liver lesion. Gallbladder and bile ducts: Unremarkable. No calcified stones. No ductal dilation. Pancreas: Unremarkable. No mass. No ductal dilation. Spleen: Mild splenomegaly. Adrenals: Unremarkable. No mass. Kidneys and ureters: Unremarkable. No solid mass. No hydronephrosis. Stomach and bowel: Mild edema near the distal sigmoid colon, this could represent early colitis, there is no wall thickening of the sigmoid colon. No obstruction. PELVIS: Appendix: No appendicitis. No mass. Bladder: Unremarkable. No mass. Reproductive: Unremarkable as visualized. ABDOMEN and PELVIS: Intraperitoneal space: Unremarkable. No free air. No significant fluid collection. Bones/joints: Mild multilevel degenerative changes of the thoracolumbar spine. Spinal stimulator noted. No acute fracture. No dislocation. Soft tissues: Unremarkable. Vasculature: Unremarkable. No abdominal aortic aneurysm. Lymph nodes: Unremarkable. No enlarged lymph nodes. IMPRESSION: 1. Mild edema near the distal sigmoid colon, this could represent early colitis, there is no wall thickening of the sigmoid colon. 2. Fatty infiltration. Nodular liver contour, correlate for cirrhosis. Electronically signed by: Elli Murray MD 08/11/23 20:55 PM Discharge Instructions Given to Patient (Per Discharging Provider) Carmen, You were admitted as we were concerned that you were bleeding in your GI system with your underlying cirrhosis. Your hemoglobin remained stable and so that was less likely. it appears that you had a colitis. We recommend slowly advancing your diet at home and using your nausea medication to help with your symptoms. We are also discharging you home with 8 more days of antibiotics. Please take as prescribed. You were seen by the Personalized Living Manager who recommended: -advancing your diet as tolerated -pantoprazole use -EGD and colonoscopy this spring (your GI office will help you with this) -avoid tylenol, NSAIDs (such as motrin or advil or ibuprofen) and alcohol -follow up with your field irrigation worker who you have not seen since November 2022 Please keep close follow up with your primary care provider after discharge. Please do not hesitate to come back to the emergency room if your symptoms worsen or return. It was a pleasure taking care of you while you were here. Total Time Total Time Spent Total Time Spent (In Minutes): > 30 minutes
[2023-08-14] MEDS ORDERED: LANTUS PER UNIT CHARGE SC SCH (21:00)
[2023-08-15] MEDS ORDERED: INSULIN ASPART PER UNIT CHARGE SC SCH
[2023-08-16] MEDS ORDERED: BUPRENORPHINE 5 MCG/HR TDSY TD SCH (09:00)
--- NOTE | 2023-08-18 18:25 | Coding Query ---
CODING QUERY To promote full compliance with coding requirements relating to patient care, provider participation is requested in all cases of fire behavior analyst uncertainty. Please assist us with the question(s) below: Please clarify the meaning of EVA. EVA is not a valid abbreviation. Thank you. ( x ) Acute Kidney Injury ( ) Acute Kidney Insufficiency ( ) Other (Specify): Principal Diagnosis: "that condition established after study, to be chiefly responsible for occasioning the admission of the patient to the hospital for care." Co-Existing Principal Diagnosis: "when two or more diagnoses equally meet the criteria for principal diagnosis as determined by the circumstances of admission, diagnostic work up, and/or therapy provided, and the Alphabetic Index, Tabular List, or another coding guideline does not provide sequencing direction, any one of the diagnoses may be sequenced first." "When the physician has documented what appears to be a current diagnosis in the body of the record, but has not included the diagnosis in the final diagnostic statement, the physician should be asked whether the diagnosis should be added." (Source [facility]oding [facility] 2 QTR90. p3-4) SAV
== END 2023-08-14 18:01 | disposition home or self-care (01) | DRG 378 ==
LOC: ED 18:19 → SUATTDRO 23:55 → EDINP 23:55 → 2E 08-12 01:28

== ENCOUNTER 2024-02-01 22:06 | Inpatient (IN) ==
[2024-02-01 22:43] LABS: Basophils # (auto) 0.04 K/uL (0.00-0.20); Basophils % (auto) 0.7 %; Eosinophils # (auto) 0.24 K/uL (0.00-0.50); Hematocrit (blood only) 38.6 % (37.0-47.0); Hemoglobin 11.9 g/dl (12.0-16.0); Immature Granulocytes # (auto) 0.02 K/uL (0.01-0.20); Immature Granulocytes % (auto) 0.3 %; Lymphocytes # (auto) 1.31 K/uL (1.20-3.40); Mean Corpuscular Hemoglobin 26.5 pg (25.0-34.0); Mean Corpuscular Hgb Conc 30.8 g/dL (32.0-36.0); Mean Platelet Volume 10.3 fL (9.4-12.4); Monocytes # (auto) 0.49 K/uL (0.11-0.59); Monocytes % (auto) 8.2 %; Neutrophils # (auto) 3.86 K/uL (1.40-6.50); Neutrophils % (auto) 64.8 %; Platelet Count 87 K/uL (130-400); RDW Coefficient of Variation 14.4 % (11.5-14.5); RDW Standard Deviation 44.6 fL (36.4-46.3); Red Blood Count 4.49 M/uL (4.20-5.40); White Blood Count 5.96 K/ul (4.8-10.8)
[2024-02-01] MEDS: ONDANSETRON INJ 2 MG/ML 2 ML VIAL IV STA (22:43)
[2024-02-01 22:59] LABS: Alanine Aminotransferase 10 U/L (7-52); Albumin Globulin Ratio 1.2 (0.9-2); Albumin Level 4.2 gm/dl (3.4-5.0); Alkaline Phosphatase 139 U/L (34-104); Anion Gap 8 (3-11); Aspartate Aminotransferase 32 U/L (13-39); BUN Creatinine Ratio 12.4 (10-20); Bilirubin,Total 0.5 mg/dl (0.2-1.0); Blood Urea Nitrogen 29 mg/dl (6-23); Carbon Dioxide 30 mmol/L (21-32); Chloride 103 mmol/L (98-107); Est GFR (African American) 27.2 ml/min; Est GFR (Non-African American) 23.4 ml/min; Globulin 3.6 gm/dl (2.5-4.0); Glucose 154 mg/dl (70-99(Fasting)); Magnesium 2.1 mg/dl (1.7-2.4); Potassium 4.4 mmol/L (3.5-5.1); Sodium 141 mmol/L (136-145); Total Protein 7.8 gm/dl (6.0-8.3)
[2024-02-01 23:06] LABS: Troponin I High Sensitivity 2.6 pg/ml (0-14)
[2024-02-01 23:45] LABS: INR 1.1 (0.9-1.1); Partial Thromboplastin Ratio 0.9; Partial Thromboplastin Time 23 Seconds (21-31); Prothrombin Time 11.4 Seconds (9.0-12.0)
[2024-02-01] MEDS: SODIUM CHLORIDE 0.9% 1,000 ML IV ONE (23:45)
[2024-02-02] MEDS: METOCLOPRAMIDE HCL INJ 5 MG/ML 2 ML VIAL IV ONE (00:24)
--- NOTE | 2024-02-02 00:25 | Emergency Department Note ---
Impression & Plan Hypotension, EVA (acute kidney injury), Abdominal pain ED Provider Note ED Provider Note NAME: JUDY CLAYTON AGE:53 SEX: Female : 1970 ARRIVES VIA: private vehicle INFORMANT: Patient ED PROVIDER(s): Falguni Landers DO CHIEF COMPLAINT: abdominal pain, low blood pressure HPI: This is a 53-year-old female who presents emergency room due to concern for abdominal pain and low blood pressure. at bedside states she has been complaining of abdominal pain intermittently over the last several weeks. Patient states she has a history of cirrhosis, pancreatitis, gastroparesis and so it is not uncommon for her to have abdominal pain. She does wear pain patch and has a pain stimulator. She is a diabetic. She denies any recent change in medications. She states eating generally brings out pain and/or makes it worse. She states she felt unwell today with the pain, nausea although no vomiting, and lightheadedness. They checked her blood pressure this evening and found that it was low at home, 80s over 50s PAST MEDICAL HISTORY:See Below PAST SURGICAL HISTORY:See Below FAMILY HISTORY:See Below SOCIAL HISTORY:See Below HOME MEDICATIONS:See Below ALLERGIES:See Below VITALS:See Below PHYSICAL EXAMINATION: GENERAL: alert, well appearing, well nourished, no distress, non-toxic EYE EXAM: normal conjunctiva, PERRL and EOM's grossly intact OROPHARYNX: no exudate, no erythema, lips, buccal mucosa, and tongue normal and mucous membranes are moist NECK: supple, no nuchal rigidity, no adenopathy, non-tender LUNGS: Clear to auscultation. Normal chest wall mechanics, no w/r/r HEART: no murmurs, S1 normal and S2 normal ABDOMEN: abdomen soft, tenderness with palpation across central abdomen and b/l UQ's, normo-active bowel sounds, no masses, no rebound or guarding. BACK: Back is symmetrical on inspection and there is no deformity, no midline tenderness, no CVA tenderness. SKIN: no rashes, petechiae, orbruising UPPER EXTREMITIES: upper extremities are grossly normal. FROM, nml pulses b/l. LOWER EXTREMITIES: No pitting edema. FROM, nml pulses b/l. NEURO EXAM: Normal sensorium, cranial nerves II-XII grossly intact, normal speech, no facial droop,nogross weakness of arms, no gross weakness of legs. Gross sensation intact. No ataxia. Vital Signs: reviewed and remarkable Differential Diagnosis: gi bleed, sbo, perf, pancreatitis, cirrhosis, gerd, viral syndrome, eva dehydration, medication adr, aaa, mesenteric ischemia, as well as others were considered MEDICAL DECISION MAKING: This is a 53 yo female who presents to the ER due to abdominal pain and hypotension noted at home. Patient hypotensive on arrival, however other VS stable. Labs drawn and sent, IV established, EKG and CXR performed and interpreted at bedside, and patient placed on telemetry. She was started on IVF and given IV tylenol and IV morphine as well as IV reglan for her pain and nausea. She was sent for CT a/p additionally. Patient noted to have EVA. Her initial hypotension improved with IVF and after 1L bolus she was started on maintenance rate IVF. Given persistent pain and EVA, case discussed with the hospitalist team for additional evaluation and mgmt. Consultation(s): 0140: Discussed with Dr. Godfrey, [facility] hospitalist team, for additional evaluation and management. ER Treatment Provided: See below Diagnostics Interpreted By Me: -ECG: Normal sinus at 76, normal axis, normal intervals, no acute ST/T wave changes -Cardiac Monitoring: An order was placed for continuous cardiac monitoring. The monitor shows a rate of 70 with normal sinus rhythm. -Laboratory studies: As stated above and show below. -Imaging studies: ct a/p - no sbo, no perf Triage Nursing Note Reviewed Prior/Outside Records Reviewed Past Med/Surg History Problem List (Updated 02/02/24 @ 00:25 by Falguni Landers DO) Abdominal pain (Acute) EVA (acute kidney injury) (Acute) Hypotension (Acute) Hematemesis (Acute) Bright red rectal bleeding (Acute) Abdominal pain (Acute) Acute hypoxemic respiratory failure Hypoxia (Acute) Pneumonia due to COVID-19 virus (Acute) Hypophosphatemia (Acute) Seizure (Acute) Right flank pain (Acute) History of liver cancer (Acute) DVT prophylaxis Seizure (Acute) UTI (urinary tract infection) (Acute) Hypomagnesemia (Acute) Dehydration (Acute) Hyperglycemia (Acute) Rene's paralysis (Acute) Hepatocellular carcinoma Epileptic seizure (Acute) Anemia (Acute) Thrombocytopenia T2DM (type 2 diabetes mellitus) (Chronic) GERD (gastroesophageal reflux disease) (Chronic) Bipolar disorder (Chronic) Chronic pain (Chronic) HTN (hypertension) (Chronic) HLD (hyperlipidemia) (Chronic) Depression (Chronic) DONNA (obstructive sleep apnea) (Chronic) Back pain (Chronic) Liver cirrhosis secondary to MENDEZ (Acute) Medical History (Updated 02/02/24 @ 00:25 by Falguni Landers DO) Stroke Seizure Vertigo Liver cancer H/O TIA (transient ischemic attack) and stroke Hypertension Surgical History History of tubal ligation History of hysterectomy Family History Other No significant family history Social History Smoking Status: Current every day smoker Tobacco Type: Cigarettes Second Hand Exposure: No; Do You Dip or Chew Tobacco: No; Hx Alcohol Use: No Hx Substance Use: No Preferred Language: Malian Communication Ability: Effective Flight Attendant Ramp Required: No Beliefs That Will Affect Care: None Current Living Situation: Spouse Current Living Situation Comment: and a son Feels Safe at Home: Yes Safety Concerns: Feels Safe At This Time Assistive Devices: Cane and CPAP Allergies Allergies Allergy/AdvReac Type Severity Reaction Status Date / Time naproxen Allergy Unknown BLEEDING Verified 08/11/23 20:32 Home Meds Home Medications Medication Instructions Recorded Confirmed albuterol sulfate 90 mcg/actuation 2 puff inhalation Q6 PRN Shortness 08/11/23 02/02/24 aerosol inhaler Of Breath Or Wheezing atenolol 100 mg tablet 100 mg PO BID 08/11/23 02/02/24 atorvastatin 40 mg tablet 40 mg PO DAILYBL 08/11/23 02/02/24 baclofen 10 mg tablet 10 mg PO TID 08/11/23 02/02/24 buprenorphine 5 mcg/hour weekly 1 patch topical WK 08/11/23 02/02/24 transdermal patch dicyclomine 20 mg tablet 20 mg PO HS 08/11/23 08/11/23 escitalopram oxalate 20 mg tablet 20 mg PO DAILY 08/11/23 02/02/24 eszopiclone 2 mg tablet 2 mg PO HS 08/11/23 02/02/24 furosemide 40 mg tablet 40 mg PO BID 08/11/23 02/02/24 hydroxyzine HCl 25 mg tablet 25 mg PO TID PRN Anxiety 08/11/23 02/02/24 insulin regular human 100 unit/mL 0 unit continuous subcutaneous 08/11/23 08/11/23 injection solution (Novolin R infusion DIRECTED Regular U-100 Insulin) loratadine 10 mg tablet 10 mg PO QAM 08/11/23 02/02/24 losartan 25 mg tablet 25 mg PO HS 08/11/23 02/02/24 magnesium oxide 400 mg PO DAILY 08/11/23 02/02/24 meclizine 25 mg tablet 25 mg PO TID PRN .dizzy 08/11/23 08/11/23 metformin 1,000 mg tablet 1,000 mg PO DAILY 08/11/23 02/02/24 metoclopramide HCl 5 mg tablet 5 mg PO AC PRN Nausea 08/11/23 02/02/24 naloxone 4 mg/actuation nasal spray 4 mg intranasal DIRECTED PRN 08/11/23 08/11/23 opiod od ondansetron 8 mg disintegrating 8 mg translingual Q8 PRN Nausea 08/11/23 08/11/23 tablet potassium chloride 10 mEq 20 meq PO BID 08/11/23 02/02/24 tablet,extended release pregabalin 100 mg capsule 100 mg PO TID 08/11/23 02/02/24 semaglutide 2 mg/dose (8 mg/3 mL) 2 mg subcut .WEEKLY 08/11/23 02/02/24 subcutaneous pen injector (Ozempic) spironolactone 50 mg tablet 50 mg PO QAM 08/11/23 08/11/23 trazodone 100 mg tablet 100 - 200 mg PO HS 08/11/23 02/02/24 Jardiance 10 mg PO DAILY 02/02/24 02/02/24 pantoprazole 40 mg tablet,delayed 40 mg PO DAILY 02/02/24 02/02/24 release Previous Rx's Medication Instructions Recorded cefdinir 300 mg capsule 300 mg PO BID #16 caps 08/14/23 metronidazole 500 mg tablet 500 mg PO TID #24 tabs 08/14/23 Results & Data (ED) Vital Signs Vital Signs - 24 hr 02/01/24 22:10 02/01/24 23:22 02/01/24 23:22 Temperature 36.7 C Temperature Source Oral Pulse Rate 81 Pulse Rate [Apical] 76 Pulse Rhythm [Apical] Regular Pulse Strength [Apical] Normal Respiratory Rate 20 18 Respiratory Effort / Characteristics Non-Labored Spontaneous Non-Labored Respiratory Depth Normal Normal Blood Pressure 94/70 L Blood Pressure [Left Arm] 83/64 L Blood Pressure Mean 78 Blood Pressure Mean [Left Arm] 70 Blood Pressure Position Sitting Pulse Oximetry 94 96 95 Oxygen Delivery Method Room Air Room Air Room Air Sepsis Recent Fever Within 48 Hours No Sepsis New/Unexplained Change in Mental Status N/A Sepsis Action Taken by Nursing No Action Required 02/01/24 23:22 02/02/24 00:09 02/02/24 00:13 Temperature Temperature Source Pulse Rate 74 Pulse Rate [Apical] 77 Pulse Rhythm [Apical] Regular Pulse Strength [Apical] Normal Respiratory Rate 18 Respiratory Effort / Characteristics Non-Labored Respiratory Depth Normal Blood Pressure Blood Pressure [Left Arm] 106/63 Blood Pressure Mean Blood Pressure Mean [Left Arm] 77 Blood Pressure Position Pulse Oximetry 95 96 Oxygen Delivery Method Room Air Room Air Sepsis Recent Fever Within 48 Hours Sepsis New/Unexplained Change in Mental Status Sepsis Action Taken by Nursing Laboratory Data 02/03/24 05:44 02/03/24 05:44 Lab Results 02/01/24 Range/Units 22:25 WBC 5.96 (4.8-10.8) K/ul RBC 4.49 (4.20-5.40) M/uL Hgb 11.9 L (12.0-16.0) g/dl Hct 38.6 (37.0-47.0) % MCV 86.0 (80.0-100.0) fL MCH 26.5 (25.0-34.0) pg MCHC 30.8 L (32.0-36.0) g/dL RDW Std Deviation 44.6 (36.4-46.3) fL RDW Coeff of Bailey 14.4 (11.5-14.5) % Plt Count 87 L (130-400) K/uL MPV 10.3 (9.4-12.4) fL Immature Gran % (Auto) 0.3 % Neut % (Auto) 64.8 % Lymph % (Auto) 22.0 % [place] % (Auto) 8.2 % Eos % (Auto) 4.0 % Baso % (Auto) 0.7 % Neut # (Auto) 3.86 (1.40-6.50) K/uL Lymph # (Auto) 1.31 (1.20-3.40) K/uL [place] # (Auto) 0.49 (0.11-0.59) K/uL Eos # (Auto) 0.24 (0.00-0.50) K/uL Baso # (Auto) 0.04 (0.00-0.20) K/uL Immature Gran # (Auto) 0.02 (0.01-0.20) K/uL PT 11.4 (9.0-12.0) Seconds INR 1.1 (0.9-1.1) APTT 23 (21-31) Seconds PTT Ratio 0.9 Sodium 141 (136-145) mmol/L Potassium 4.4 (3.5-5.1) mmol/L Chloride 103 (98-107) mmol/L Carbon Dioxide 30 (21-32) mmol/L Anion Gap 8 (3-11) BUN 29 H (6-23) mg/dl Creatinine 2.33 H (0.6-1.2) mg/dl Est Cr Clr Drug Dosing Not Reportable Est GFR ( Amer) 27.2 ml/min Est GFR (Non-Af Amer) 23.4 ml/min BUN/Creatinine Ratio 12.4 (10-20) Glucose 154 H (70-99(Fasting)) mg/dl Lactate 1.7 (0.4-2.0) mmol/L Calcium 9.0 (8.6-10.3) mg/dl Magnesium 2.1 (1.7-2.4) mg/dl Total Bilirubin 0.5 (0.2-1.0) mg/dl AST 32 (13-39) U/L ALT 10 (7-52) U/L Alkaline Phosphatase 139 H (34-104) U/L Ammonia 22.0 (18-72) umol/L Troponin I High Sens 2.6 (0-14) pg/ml Total Protein 7.8 (6.0-8.3) gm/dl Albumin 4.2 (3.4-5.0) gm/dl Globulin 3.6 (2.5-4.0) gm/dl Albumin/Globulin Ratio 1.2 (0.9-2) Procalcitonin 0.08 (0-0.5) ng/ml Administered Medications Acetaminophen (Acetaminophen 500 Mg Tab) 500 mg PO Q6H PRN PRN Reason: fever/pain Stop: 03/03/24 02:50 Last Admin: 02/03/24 08:42 Dose: 500 mg Documented By: TMP Atenolol (Atenolol 25 Mg Tablet) 25 mg PO DAILY MARCIA Stop: 03/03/24 08:59 Last Admin: 02/03/24 08:29 Dose: 25 mg Documented By: Admin: 02/02/24 09:07 Dose: 25 mg Documented By: CC Atorvastatin Calcium (Atorvastatin 40 Mg Tab) 40 mg PO DAILYBL [facility] Stop: 03/03/24 10:29 Last Admin: 02/03/24 10:39 Dose: 40 mg Documented By: Admin: 02/02/24 10:18 Dose: 40 mg Documented By: CC Baclofen (Baclofen 10 Mg Tab) 10 mg PO TID [facility] Stop: 03/03/24 08:59 Last Admin: 02/03/24 21:27 Dose: 10 mg Documented By: Admin: 02/03/24 12:54 Dose: 10 mg Documented By: Admin: 02/03/24 08:29 Dose: 10 mg Documented By: Admin: 02/02/24 20:45 Dose: 10 mg Documented By: Admin: 02/02/24 15:39 Dose: 10 mg Documented By: Admin: 02/02/24 09:09 Dose: 10 mg Documented By: CC Escitalopram Oxalate (Escitalopram Oxalate 20 Mg Tab) 20 mg PO DAILY MARCIA Stop: 03/03/24 08:59 Last Admin: 02/03/24 08:29 Dose: 20 mg Documented By: Admin: 02/02/24 09:09 Dose: 20 mg Documented By: CC Hydroxyzine HCl (Hydroxyzine Hcl 25 Mg Tab) 25 mg PO TID PRN PRN Reason: Anxiety Stop: 03/03/24 06:32 Last Admin: 02/03/24 21:27 Dose: 25 mg Documented By: Admin: 02/03/24 12:59 Dose: 25 mg Documented By: TMP Promethazine HCl (Phenergan) 6.25 mg in 50.25 mls @ 201 mls/hr IV Q6H PRN PRN Reason: Nausea And Vomiting Stop: 03/03/24 02:50 Last Infusion: 02/03/24 08:42 Dose: Infused Documented By: Admin: 02/03/24 08:26 Dose: 201 mls/hr Documented By: Infusion: 02/02/24 20:08 Dose: Infused Documented By: Admin: 02/02/24 19:53 Dose: 201 mls/hr Documented By: Infusion: 02/02/24 05:10 Dose: Infused Documented By: Admin: 02/02/24 04:54 Dose: 201 mls/hr Documented By: WESLEY Pantoprazole Sodium 40 mg/ (Syringe) 10 mls @ 5 mls/min IV BID MARCIA Stop: 03/03/24 18:59 Last Admin: 02/03/24 21:18 Dose: 5 mls/min Documented By: Admin: 02/03/24 08:28 Dose: 5 mls/min Documented By: Admin: 02/02/24 20:22 Dose: 5 mls/min Documented By: ISAI Insulin Aspart (Insulin Aspart Per Unit Charge) 0 units SC ACHS MARCIA Stop: 03/03/24 07:29 Last Admin: 02/03/24 21:13 Dose: Not Given Documented By: Admin: 02/03/24 18:10 Dose: 7 units Documented By: RICKY Co-signed By: WARD Admin: 02/03/24 12:54 Dose: 11 units Documented By: RICKY Co-signed By: WARD Admin: 02/03/24 09:20 Dose: 8 units Documented By: RICKY Co-signed By: WARD Admin: 02/02/24 20:25 Dose: Not Given Documented By: Admin: 02/02/24 18:21 Dose: Not Given Documented By: Admin: 02/02/24 14:36 Dose: 1 units Documented By: DANNI Co-signed By: RHIANNA Admin: 02/02/24 09:52 Dose: Not Given Documented By: DANNI Co-signed By: TK Insulin Glargine (Lantus Per Unit Charge) 25 units SC DAILY@1700 MARCIA; Protocol Stop: 03/04/24 17:29 Last Admin: 02/03/24 18:10 Dose: 25 units Documented By: RICKY Co-signed By: WARD Loratadine (Loratadine 10 Mg Tab) 10 mg PO QAM MARCIA Stop: 03/03/24 08:59 Last Admin: 02/03/24 08:29 Dose: 10 mg Documented By: Admin: 02/02/24 09:10 Dose: 10 mg Documented By: DANNI Metoclopramide HCl (Metoclopramide Hcl 5 Mg Tablet) 5 mg PO ACHS MARCIA Stop: 03/04/24 11:29 Last Admin: 02/03/24 21:17 Dose: 5 mg Documented By: Admin: 02/03/24 16:17 Dose: 5 mg Documented By: Admin: 02/03/24 12:01 Dose: 5 mg Documented By: RICKY Miscellaneous (Check Buprenorphine Patch) 1 each N/A QS MARCIA Stop: 03/03/24 07:59 Last Admin: 02/03/24 16:16 Dose: 1 each Documented By: Admin: 02/03/24 08:30 Dose: 1 each Documented By: Admin: 02/03/24 00:23 Dose: 1 each Documented By: Admin: 02/02/24 15:31 Dose: 1 each Documented By: Admin: 02/02/24 09:06 Dose: 1 each Documented By: DANNI Pregabalin (Pregabalin 100 Mg Cap) 100 mg PO TID MARCIA Stop: 03/03/24 08:59 Last Admin: 02/03/24 21:27 Dose: 100 mg Documented By: Admin: 02/03/24 12:54 Dose: 100 mg Documented By: Admin: 02/03/24 08:34 Dose: 100 mg Documented By: Admin: 02/02/24 20:45 Dose: 100 mg Documented By: Admin: 02/02/24 15:39 Dose: 100 mg Documented By: Admin: 02/02/24 09:11 Dose: 100 mg Documented By: DANNI Trazodone HCl (Trazodone Hcl 100 Mg Tab) 100 mg PO HS MARCIA Stop: 03/03/24 20:59 Last Admin: 02/03/24 21:17 Dose: 100 mg Documented By: Admin: 02/02/24 21:00 Dose: Not Given Documented By: AMS Discontinued Medications Sodium Chloride (Nss) 1,000 mls @ 999 mls/hr IV .Q1H1M ONE Stop: 02/02/24 00:32 Last Infusion: 02/02/24 00:40 Dose: Infused Documented By: Admin: 02/01/24 23:45 Dose: 999 mls/hr Documented By: HB Sodium Chloride (Nss) 1,000 mls @ 125 mls/hr IV .Q8H MARCIA Stop: 03/03/24 00:59 Last Infusion: 02/02/24 10:27 Dose: Infused Documented By: Infusion: 02/02/24 02:54 Dose: 0 mls/hr Documented By: Admin: 02/02/24 01:23 Dose: 125 mls/hr Documented By: WESLEY Sodium Chloride (Nss) 1,000 mls @ 125 mls/hr IV .Q8H ONE Stop: 02/02/24 09:49 Last Infusion: 02/02/24 10:23 Dose: Infused Documented By: Admin: 02/02/24 02:53 Dose: 125 mls/hr Documented By: PIERRE Acetaminophen (Ofirmev) 1,000 mg in 100 mls @ 400 mls/hr IV NOW STA Stop: 02/02/24 02:54 Last Infusion: 02/02/24 03:13 Dose: Infused Documented By: Admin: 02/02/24 02:53 Dose: 400 mls/hr Documented By: PIERRE Sodium Chloride (Nss) 1,000 mls @ 80 mls/hr IV .[id number] MARCIA Stop: 03/03/24 14:59 Last Infusion: 02/03/24 10:11 Dose: Infused Documented By: Admin: 02/03/24 04:05 Dose: 80 mls/hr Documented By: Infusion: 02/03/24 04:05 Dose: Infused Documented By: Admin: 02/02/24 15:33 Dose: 80 mls/hr Documented By: KATHY Pantoprazole Sodium 40 mg/ (Syringe) 10 mls @ 5 mls/min IV BID MARCIA Stop: 03/03/24 18:44 Last Admin: 02/02/24 18:50 Dose: Not Given Documented By: JESSE Insulin Aspart (Insulin Aspart Per Unit Charge) 0 units SC 0000,0400 MARCIA Stop: 02/03/24 04:01 Last Admin: 02/03/24 04:04 Dose: Not Given Documented By: Admin: 02/03/24 00:24 Dose: Not Given Documented By: ISAI Co-signed By: PARDEEP Insulin Glargine (Lantus Per Unit Charge) 25 units SC ONE ONE Stop: 02/02/24 03:16 Last Admin: 02/02/24 04:25 Dose: 25 units Documented By: WESLEY Co-signed By: ESMER Insulin Glargine (Lantus Per Unit Charge) 0 units SC ONE ONE; Protocol Stop: 02/02/24 21:01 Last Admin: 02/02/24 20:26 Dose: Not Given Documented By: ISAI Metoclopramide HCl (Metoclopramide Hcl Inj 5 Mg/Ml 2 Ml Vial) 5 mg IV ONE ONE Stop: 02/02/24 00:18 Last Admin: 02/02/24 00:24 Dose: 5 mg Documented By: WESLEY Miscellaneous (Stop Order: Dc Insulin Pump) 1 each N/A ONE ONE Stop: 02/02/24 03:16 Last Admin: 02/02/24 04:31 Dose: 1 each Documented By: WESLEY Morphine Sulfate (Morphine Sulfate 4 Mg/Ml 1 Ml Carp\Vial) 4 mg IV NOW STA Stop: 02/02/24 00:18 Last Admin: 02/02/24 00:26 Dose: 4 mg Documented By: WESLEY Ondansetron HCl (Ondansetron Inj 2 Mg/Ml 2 Ml Vial) 4 mg IV NOW STA Stop: 02/01/24 22:39 Last Admin: 02/01/24 22:43 Dose: 4 mg Documented By: ESMER Oxycodone HCl (Oxycodone Hcl Ir 5 Mg Tab (Immediate Release)) 5 - 10 mg PO QID PRN PRN Reason: Pain Stop: 02/16/24 03:13 Last Admin: 02/02/24 18:30 Dose: 10 mg Documented By: Admin: 02/02/24 11:26 Dose: 10 mg Documented By: Admin: 02/02/24 04:54 Dose: 10 mg Documented By: WESLEY Pantoprazole Sodium (Pantoprazole 40 Mg Tab) 40 mg PO DAILY MARCIA Stop: 03/03/24 08:59 Last Admin: 02/02/24 09:10 Dose: 40 mg Documented By: DANNI Imaging Data Radiologist's Impression: Abdomen/Pelvis CT 02/01/24 23:32 Exam(s): CT ABDOMEN + PELVIS Without Contrast EXAM: CT Abdomen and Pelvis Without Intravenous Contrast CLINICAL HISTORY: Abdominal Pain hypotension. TECHNIQUE: Axial computed tomography images of the abdomen and pelvis without intravenous contrast. CTDI is 28.14 mGy and DLP is 1471.68 mGy-cm. Automated exposure control was utilized for the study. A dose lowering technique was utilized adhering to the principles of ALARA. COMPARISON: CT abdomen and pelvis 08/11/2023 FINDINGS: Lung bases: Unremarkable. No mass. No consolidation. ABDOMEN: Liver: Cirrhosis. Gallbladder and bile ducts: Unremarkable. No calcified stones. No ductal dilation. Pancreas: Unremarkable. No ductal dilation. Spleen: Mild nonspecific splenomegaly. Adrenals: Unremarkable. No mass. Kidneys and ureters: Unremarkable. No obstructing stones. No hydronephrosis. Stomach and bowel: Unremarkable. No obstruction. No mucosal thickening. PELVIS: Appendix: Normal appendix. Bladder: Unremarkable. No stones. Reproductive: Unremarkable as visualized. ABDOMEN and PELVIS: Intraperitoneal space: Unremarkable. No free air. No significant fluid collection. Bones/joints: There are degenerative changes of the spine. No acute fracture. No dislocation. Soft tissues: Unremarkable. Vasculature: Mild atherosclerosis. No abdominal aortic aneurysm. Lymph nodes: Unremarkable. No enlarged lymph nodes. IMPRESSION: 1. Cirrhosis. 2. Mild nonspecific splenomegaly. This could relate to portal hypertension. Electronically signed by: Destiny Knapp MD 02/02/24 01:[address] 02/01/24 23:32 Exam(s): CT HEAD Without Contrast EXAM: CT Head Without Intravenous Contrast CLINICAL HISTORY: Hypertension and dizziness. TECHNIQUE: Axial computed tomography images of the head/brain without intravenous contrast. CTDI is 36.55 mGy and DLP is 624.41 mGy-cm. Automated exposure control was utilized for the study. A dose lowering technique was utilized adhering to the principles of ALARA. COMPARISON: CT head 03/07/2020 FINDINGS: Brain: No intracranial hemorrhage, mass-effect or midline shift. No abnormal extra axial fluid. No evidence of acute infarct. Mild periventricular white matter hypodensities are most consistent with chronic microangiopathy. Ventricles: Unremarkable. No ventriculomegaly. Bones/joints: Unremarkable. No acute fracture. Soft tissues: Unremarkable. Sinuses: Unremarkable as visualized. No acute sinusitis. Mastoid air cells: Unremarkable as visualized. No mastoid effusion. IMPRESSION: No acute intracranial finding. Electronically signed by: Destiny Knapp MD 02/02/24 01:24 AM Discharge Plan Visit Data Chief Complaint: Hypotension Stated Complaint: LOW BP, UPPER ABD PAIN ED Provider: Falguni Landers Discharge Problem: Hypotension, EVA (acute kidney injury), Abdominal pain Patient Disposition: Admitted As Inpatient Discharge Instructions Interventions: ED Discharge Assessment Last Done: 02/02/24 04:52
[2024-02-02] MEDS: MoRPHine SULFATE 4 MG/ML 1 ML CARP\\VIAL IV STA (00:26)
[2024-02-02] MEDS: SODIUM CHLORIDE 0.9% 1,000 ML IV SCH ×2 (01:23→15:33)
--- NOTE | 2024-02-02 01:24 | CT Scan Report ---
Exam(s): CT HEAD Without Contrast EXAM: CT Head Without Intravenous Contrast CLINICAL HISTORY: Hypertension and dizziness. TECHNIQUE: Axial computed tomography images of the head/brain without intravenous contrast. CTDI is 36.55 mGy and DLP is 624.41 mGy-cm. Automated exposure control was utilized for the study. A dose lowering technique was utilized adhering to the principles of ALARA. COMPARISON: CT head 03/07/2020 FINDINGS: Brain: No intracranial hemorrhage, mass-effect or midline shift. No abnormal extra axial fluid. No evidence of acute infarct. Mild periventricular white matter hypodensities are most consistent with chronic microangiopathy. Ventricles: Unremarkable. No ventriculomegaly. Bones/joints: Unremarkable. No acute fracture. Soft tissues: Unremarkable. Sinuses: Unremarkable as visualized. No acute sinusitis. Mastoid air cells: Unremarkable as visualized. No mastoid effusion. IMPRESSION: No acute intracranial finding. Electronically signed by: Destiny Knapp MD 02/02/24 01:24 AM
--- NOTE | 2024-02-02 01:25 | CT Scan Report ---
Exam(s): CT ABDOMEN + PELVIS Without Contrast EXAM: CT Abdomen and Pelvis Without Intravenous Contrast CLINICAL HISTORY: Abdominal Pain hypotension. TECHNIQUE: Axial computed tomography images of the abdomen and pelvis without intravenous contrast. CTDI is 28.14 mGy and DLP is 1471.68 mGy-cm. Automated exposure control was utilized for the study. A dose lowering technique was utilized adhering to the principles of ALARA. COMPARISON: CT abdomen and pelvis 08/11/2023 FINDINGS: Lung bases: Unremarkable. No mass. No consolidation. ABDOMEN: Liver: Cirrhosis. Gallbladder and bile ducts: Unremarkable. No calcified stones. No ductal dilation. Pancreas: Unremarkable. No ductal dilation. Spleen: Mild nonspecific splenomegaly. Adrenals: Unremarkable. No mass. Kidneys and ureters: Unremarkable. No obstructing stones. No hydronephrosis. Stomach and bowel: Unremarkable. No obstruction. No mucosal thickening. PELVIS: Appendix: Normal appendix. Bladder: Unremarkable. No stones. Reproductive: Unremarkable as visualized. ABDOMEN and PELVIS: Intraperitoneal space: Unremarkable. No free air. No significant fluid collection. Bones/joints: There are degenerative changes of the spine. No acute fracture. No dislocation. Soft tissues: Unremarkable. Vasculature: Mild atherosclerosis. No abdominal aortic aneurysm. Lymph nodes: Unremarkable. No enlarged lymph nodes. IMPRESSION: 1. Cirrhosis. 2. Mild nonspecific splenomegaly. This could relate to portal hypertension. Electronically signed by: Destiny Knapp MD 02/02/24 01:25 AM
[2024-02-02] MEDS ORDERED: PHARMACY GLYCEMIC MGMT CONSULT PRN (02:46)
[2024-02-02] MEDS: SODIUM CHLORIDE 0.9% 1,000 ML IV ONE (02:53)
[2024-02-02] MEDS: ACETAMINOPHEN 1,000 MG/100 ML VIAL IV STA (02:53)
[2024-02-02] MEDS ORDERED: CARBOHYDRATES FOR HYPOGLYCEMIA PO PRN (03:30)
[2024-02-02] MEDS ORDERED: DEXTROSE 50% 50 ML SYRINGE IV PRN (03:30)
[2024-02-02] MEDS ORDERED: GLUCOSE 40% GEL 15 GM TUBE PO PRN (03:30)
[2024-02-02] MEDS ORDERED: GLUCAGON FOR INJ 1 MG VIAL IM PRN (03:30)
[2024-02-02] MEDS ORDERED: GLUCOSE 10 TAB/TUBE PO PRN (03:30)
--- NOTE | 2024-02-02 03:48 | History & Physical Report ---
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 nurse DM2 on insulin pump, well-controlled as of recent hemoglobin A1c of 6.3 last November 2023 chronic pain on Butrans patch chronic back pain status post surgery Anxiety/mood disorder, stable as per patient chronic anemia, hemoglobin at baseline chronic thrombocytopenia secondary liver disease LLE swelling, 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 SCDs Re: Thrombocytopenia Full code Text document was generated using [employer] voice recognition software. It may contain grammatical or spelling errors. Kindly contact undersigned for clarification of any documentation item in question. History of Present Illness Chief Complaint: Abdominal pain Primary Care Provider: Scott Weldon MD History obtained from patient and records. Medical history significant for seizure disorder, hypertension, hyperlipidemia, past hx of CVA, chronic left hemiparesis as per records, NAFLD cirrhosis, liver malignancy, DM2 on insulin pump,CRI (baseline creatinine 1.4-1.5), chronic pain on Butrans patch, chronic back pain status post surgery, mood disorder, chronic anemia (baseline hemoglobin of 11), chronic thrombocytopenia, DONNA on CPAP. Last confinement August 2023 for GI bleed. Patient has had achy upper abdominal pain symptoms for few months now. Attributes pain to pancreatitis. No chest pain, no SOB. Some nausea without emesis. Good BM. Fall from ladder 2 weeks ago with transient back pain and headache complaints. Seen at PCPs office last week. X-rays recommended by provider. Worsening abdominal pain today. [place] like she was going to pass out. BP noted to be low at home at 80s. Medical History as above Surgical History : Hysteroscopy, vascular procedure, BTL, back surgery/spinal stimulator placement Family History : COPD, diabetes, liver disease, heart disease Personal/Social history : Non-smoker, no EtOH intake, disabled Allergies Allergy/AdvReac Type Severity Reaction Status Date / Time naproxen Allergy Unknown BLEEDING Verified 08/11/23 20:32 Home Medications Medication Instructions Recorded Confirmed Type albuterol sulfate 90 mcg/actuation 2 puff inhalation Q6 PRN Shortness 08/11/23 02/02/24 History aerosol inhaler Of Breath Or Wheezing atenolol 100 mg tablet 100 mg PO BID 08/11/23 02/02/24 History atorvastatin 40 mg tablet 40 mg PO DAILYBL 08/11/23 02/02/24 History baclofen 10 mg tablet 10 mg PO TID 08/11/23 02/02/24 History buprenorphine 5 mcg/hour weekly 1 patch topical WK 08/11/23 02/02/24 History transdermal patch dicyclomine 20 mg tablet 20 mg PO HS 08/11/23 08/11/23 History escitalopram oxalate 20 mg tablet 20 mg PO DAILY 08/11/23 02/02/24 History eszopiclone 2 mg tablet 2 mg PO HS 08/11/23 02/02/24 History furosemide 40 mg tablet 40 mg PO BID 08/11/23 02/02/24 History hydroxyzine HCl 25 mg tablet 25 mg PO TID PRN Anxiety 08/11/23 02/02/24 History insulin regular human 100 unit/mL 0 unit continuous subcutaneous 08/11/23 08/11/23 History injection solution (Novolin R infusion DIRECTED Regular U-100 Insulin) loratadine 10 mg tablet 10 mg PO QAM 08/11/23 02/02/24 History losartan 25 mg tablet 25 mg PO HS 08/11/23 02/02/24 History magnesium oxide 400 mg PO DAILY 08/11/23 02/02/24 History meclizine 25 mg tablet 25 mg PO TID PRN .dizzy 08/11/23 08/11/23 History metformin 1,000 mg tablet 1,000 mg PO DAILY 08/11/23 02/02/24 History metoclopramide HCl 5 mg tablet 5 mg PO AC PRN Nausea 08/11/23 02/02/24 History naloxone 4 mg/actuation nasal spray 4 mg intranasal DIRECTED PRN 08/11/23 08/11/23 History opiod od ondansetron 8 mg disintegrating 8 mg translingual Q8 PRN Nausea 08/11/23 08/11/23 History tablet potassium chloride 10 mEq 20 meq PO BID 08/11/23 02/02/24 History tablet,extended release pregabalin 100 mg capsule 100 mg PO TID 08/11/23 02/02/24 History semaglutide 2 mg/dose (8 mg/3 mL) 2 mg subcut .WEEKLY 08/11/23 02/02/24 History subcutaneous pen injector (Ozempic) spironolactone 50 mg tablet 50 mg PO QAM 08/11/23 08/11/23 History trazodone 100 mg tablet 100 - 200 mg PO HS 08/11/23 02/02/24 History cefdinir 300 mg capsule 300 mg PO BID #16 caps 08/14/23 Rx metronidazole 500 mg tablet 500 mg PO TID #24 tabs 08/14/23 Rx Jardiance 10 mg PO DAILY 02/02/24 02/02/24 History pantoprazole 40 mg tablet,delayed 40 mg PO DAILY 02/02/24 02/02/24 History release Past Med/Surg History Problem List (Updated 02/02/24 @ 00:25 by Falguni Landers DO) Abdominal pain (Acute) EVA (acute kidney injury) (Acute) Hypotension (Acute) Hematemesis (Acute) Bright red rectal bleeding (Acute) Abdominal pain (Acute) Acute hypoxemic respiratory failure Hypoxia (Acute) Pneumonia due to COVID-19 virus (Acute) Hypophosphatemia (Acute) Seizure (Acute) Right flank pain (Acute) History of liver cancer (Acute) DVT prophylaxis Seizure (Acute) UTI (urinary tract infection) (Acute) Hypomagnesemia (Acute) Dehydration (Acute) Hyperglycemia (Acute) Rene's paralysis (Acute) Hepatocellular carcinoma Epileptic seizure (Acute) Anemia (Acute) Thrombocytopenia T2DM (type 2 diabetes mellitus) (Chronic) GERD (gastroesophageal reflux disease) (Chronic) Bipolar disorder (Chronic) Chronic pain (Chronic) HTN (hypertension) (Chronic) HLD (hyperlipidemia) (Chronic) Depression (Chronic) DONNA (obstructive sleep apnea) (Chronic) Back pain (Chronic) Liver cirrhosis secondary to MENDEZ (Acute) Medical History (Updated 02/02/24 @ 00:25 by Falguni Landers DO) Stroke Seizure Vertigo Liver cancer H/O TIA (transient ischemic attack) and stroke Hypertension Surgical History History of tubal ligation History of hysterectomy Family History Other No significant family history Social History Smoking Status: Current every day smoker Tobacco Type: Cigarettes Second Hand Exposure: No; Do You Dip or Chew Tobacco: No; Hx Alcohol Use: No Hx Substance Use: No Preferred Language: Korean Communication Ability: Effective Restaurant Inspector Required: No Beliefs That Will Affect Care: None Current Living Situation: Spouse Current Living Situation Comment: and a son Feels Safe at Home: Yes Safety Concerns: Feels Safe At This Time Assistive Devices: Cane, CPAP and Glasses Review of Systems Review of Systems: As per HPI, all other systems reviewed and negative Physical Exam Physical Exam: GENERAL: Lethargic, morbidly obese, no respiratory distress SKIN: Pallor, warm HEENT: Bespectacled, pale palpebral conjunctivae, no ptosis, dry buccal mucosa, nasal cannula in place NECK : Supple, short neck, no tenderness CHEST : Decreased breath sounds, no tenderness HEART : RRR, no obvious murmurs ABDOMEN: Chronic distention, epigastric tenderness EXTREMITIES :LLE swelling, no LE tenderness, no other conspicuous deformities n oted NEUROLOGIC : Coherent, no facial asymmetry, gait and stance not assessed Results & Data Results & Data Vital Signs (Past 12 Hours) Vital Signs Temp Pulse Pulse Resp BP BP Pulse Ox 02/02/24 00:13 74 02/02/24 00:09 77 18 106/63 96 02/01/24 23:22 95 02/01/24 23:22 76 18 83/64 L 95 02/01/24 23:22 96 02/01/24 22:10 36.7 C 81 20 94/70 L 94 O2 Del Method 02/02/24 00:13 02/02/24 00:09 Room Air 02/01/24 23:22 Room Air 02/01/24 23:22 Room Air 02/01/24 23:22 Room Air 02/01/24 22:10 Room Air Laboratory Results Laboratory Results WBC 5.96 K/ul (4.8-10.8) 02/01/24 22:25 RBC 4.49 M/uL (4.20-5.40) 02/01/24: Hgb 11.9 g/dl (12.0-16.0) L 02/01/24: Hct 38.6 % (37.0-47.0) 02/01/24: MCV 86.0 fL (80.0-100.0) 02/01/24: MCH 26.5 pg (25.0-34.0) 02/01/24: MCHC 30.8 g/dL (32.0-36.0) L 02/01/24: RDW Std Deviation 44.6 fL (36.4-46.3) 02/01/24: RDW Coeff of Bailey 14.4 % (11.5-14.5) 02/01/24: Plt Count 87 K/uL (130-400) L 02/01/24: MPV 10.3 fL (9.4-12.4) 02/01/24: Immature Gran % (Auto) 0.3 % 02/01/24: Neut % (Auto) 64.8 % 02/01/24: Lymph % (Auto) 22.0 % 02/01/24: [place] % (Auto) 8.2 % 02/01/24: Eos % (Auto) 4.0 % 02/01/24: Baso % (Auto) 0.7 % 02/01/24: Neut # (Auto) 3.86 K/uL (1.40-6.50) 02/01/24: Lymph # (Auto) 1.31 K/uL (1.20-3.40) 02/01/24: [place]rien # (Auto) 0.49 K/uL (0.11-0.59) 02/01/24: Eos # (Auto) 0.24 K/uL (0.00-0.50) 02/01/24: Baso # (Auto) 0.04 K/uL (0.00-0.20) 02/01/24: Immature Gran # (Auto) 0.02 K/uL (0.01-0.20) 02/01/24:25 PT 11.4 Seconds (9.0-12.0) 02/01/24 22:25 INR 1.1 (0.9-1.1) 02/01/24 22:25 APTT 23 Seconds (21-31) 02/01/24 22:25 PTT Ratio 0.9 02/01/24 22:25 Sodium 141 mmol/L (136-145) 02/01/24 22:25 Potassium 4.4 mmol/L (3.5-5.1) 02/01/24 22:25 Chloride 103 mmol/L (98-107) 02/01/24 22:25 Carbon Dioxide 30 mmol/L (21-32) 02/01/24 22:25 Anion Gap 8 (3-11) 02/01/24 22:25 BUN 29 mg/dl (6-23) H 02/01/24 22:25 Creatinine 2.33 mg/dl (0.6-1.2) H 02/01/24 22:25 Est Cr Clr Drug Dosing Not Reportable 02/01/24 22:25 Est GFR ( Amer) 27.2 ml/min 02/01/24 22:25 Est GFR (Non-Af Amer) 23.4 ml/min 02/01/24 22:25 BUN/Creatinine Ratio 12.4 (10-20) 02/01/24 22:25 Glucose 154 mg/dl (70-99(Fasting)) H 02/01/24 22:25 Lactate 1.7 mmol/L (0.4-2.0) 02/01/24 22: Calcium 9.0 mg/dl (8.6-10.3) 02/01/24 22: Magnesium 2.1 mg/dl (1.7-2.4) 02/01/24 22:25 Total Bilirubin 0.5 mg/dl (0.2-1.0) 02/01/24 22:25 AST 32 U/L (13-39) 02/01/24 22:25 ALT 10 U/L (7-52) 02/01/24 22:25 Alkaline Phosphatase 139 U/L (34-104) H 02/01/24 22:25 Ammonia 22.0 umol/L (18-72) 02/01/24 22:25 Troponin I High Sens 2.6 pg/ml (0-14) 02/01/24 22:25 Total Protein 7.8 gm/dl (6.0-8.3) 02/01/24 22:25 Albumin 4.2 gm/dl (3.4-5.0) 02/01/24 22:25 Globulin 3.6 gm/dl (2.5-4.0) 02/01/24 22:25 Albumin/Globulin Ratio 1.2 (0.9-2) 02/01/24 22:25 Procalcitonin 0.08 ng/ml (0-0.5) 02/01/24 22:25 Impressions Abdomen/Pelvis CT 02/01/24 23:32 Exam(s): CT ABDOMEN + PELVIS Without Contrast EXAM: CT Abdomen and Pelvis Without Intravenous Contrast CLINICAL HISTORY: Abdominal Pain hypotension. TECHNIQUE: Axial computed tomography images of the abdomen and pelvis without intravenous contrast. CTDI is 28.14 mGy and DLP is 1471.68 mGy-cm. Automated exposure control was utilized for the study. A dose lowering technique was utilized adhering to the principles of ALARA. COMPARISON: CT abdomen and pelvis 08/11/2023 FINDINGS: Lung bases: Unremarkable. No mass. No consolidation. ABDOMEN: Liver: Cirrhosis. Gallbladder and bile ducts: Unremarkable. No calcified stones. No ductal dilation. Pancreas: Unremarkable. No ductal dilation. Spleen: Mild nonspecific splenomegaly. Adrenals: Unremarkable. No mass. Kidneys and ureters: Unremarkable. No obstructing stones. No hydronephrosis. Stomach and bowel: Unremarkable. No obstruction. No mucosal thickening. PELVIS: Appendix: Normal appendix. Bladder: Unremarkable. No stones. Reproductive: Unremarkable as visualized. ABDOMEN and PELVIS: Intraperitoneal space: Unremarkable. No free air. No significant fluid collection. Bones/joints: There are degenerative changes of the spine. No acute fracture. No dislocation. Soft tissues: Unremarkable. Vasculature: Mild atherosclerosis. No abdominal aortic aneurysm. Lymph nodes: Unremarkable. No enlarged lymph nodes. IMPRESSION: 1. Cirrhosis. 2. Mild nonspecific splenomegaly. This could relate to portal hypertension. Electronically signed by: Destiny Knapp MD 02/02/24 01:[address] 02/01/24 23:32 Exam(s): CT HEAD Without Contrast EXAM: CT Head Without Intravenous Contrast CLINICAL HISTORY: Hypertension and dizziness. TECHNIQUE: Axial computed tomography images of the head/brain without intravenous contrast. CTDI is 36.55 mGy and DLP is 624.41 mGy-cm. Automated exposure control was utilized for the study. A dose lowering technique was utilized adhering to the principles of ALARA. COMPARISON: CT head 03/07/2020 FINDINGS: Brain: No intracranial hemorrhage, mass-effect or midline shift. No abnormal extra axial fluid. No evidence of acute infarct. Mild periventricular white matter hypodensities are most consistent with chronic microangiopathy. Ventricles: Unremarkable. No ventriculomegaly. Bones/joints: Unremarkable. No acute fracture. Soft tissues: Unremarkable. Sinuses: Unremarkable as visualized. No acute sinusitis. Mastoid air cells: Unremarkable as visualized. No mastoid effusion. IMPRESSION: No acute intracranial finding. Electronically signed by: Destiny Knapp MD 02/02/24 01:24 AM Diagnostic Findings Chest x-ray as per my interpretation cardiomegaly, atelectasis EKG as per my interpretation : Rate 75, NSR, normal axis, LVH, inferior infarct, nonspecific T wave abnormalities Code Status & VTE Plan VTE Prophylaxis Plan VTE Prophylaxis will be ordered: Yes
[2024-02-02 04:22] LABS: Basophils # (auto) 0.04 K/uL (0.00-0.20); Basophils % (auto) 0.7 %; Eosinophils % (auto) 3.6 %; Hematocrit (blood only) 33.1 % (37.0-47.0); Hemoglobin 10.3 g/dl (12.0-16.0); Immature Granulocytes # (auto) 0.02 K/uL (0.01-0.20); Immature Granulocytes % (auto) 0.4 %; Lymphocytes # (auto) 1.34 K/uL (1.20-3.40); Lymphocytes % (auto) 24.5 %; Mean Corpuscular Hemoglobin 26.9 pg (25.0-34.0); Mean Corpuscular Hgb Conc 31.1 g/dL (32.0-36.0); Mean Corpuscular Volume 86.4 fL (80.0-100.0); Mean Platelet Volume 9.9 fL (9.4-12.4); Monocytes # (auto) 0.48 K/uL (0.11-0.59); Monocytes % (auto) 8.8 %; Platelet Count 66 K/uL (130-400); RDW Coefficient of Variation 14.3 % (11.5-14.5); RDW Standard Deviation 44.7 fL (36.4-46.3); Red Blood Count 3.83 M/uL (4.20-5.40); White Blood Count 5.48 K/ul (4.8-10.8)
[2024-02-02] MEDS: LANTUS PER UNIT CHARGE SC ONE ×2 (04:25→20:26)
[2024-02-02] MEDS: [UNRECOGNIZED DRUG - REMARK] ONE (04:31)
[2024-02-02 04:44] LABS: BUN Creatinine Ratio 13.9 (10-20); Calcium 7.9 mg/dl (8.6-10.3); Creatinine Clr Calc Pharmacy 42.4 ml/min; Est GFR (African American) 33.9 ml/min; Est GFR (Non-African American) 29.3 ml/min; Potassium 4.2 mmol/L (3.5-5.1)
[2024-02-02] MEDS: oxyCODONE HCL IR 5 MG TAB (IMMEDIATE RELEASE) PO PRN (04:54)
[2024-02-02] MEDS: PROMETHAZINE 6.25 MG/50.25 ML BAG IV PRN (04:54)
[2024-02-02 05:20] LABS: Appearance Urine Clear (Clear); Bacteria Urine Automated None Seen (None Seen); Bilirubin Urine Negative (Negative); Blood Urine Negative (Negative); Color Urine Yellow; Epithelial Cell Urine Auto 0-2 /hpf (0-2); Glucose Urine UA 3+ (Negative); Ketones Urine Negative (Negative); Leukocyte Esterase Urine Trace (Negative); Nitrite Urine Negative (Negative); Protein Urine Negative (Negative); RBC Urine Automated 0-2 /hpf (0-2); Specific Gravity Urine 1.019 (1.000-1.030); Urobilinogen Urine Negative (Negative); WBC Urine Automated 0-5 /hpf (0-5)
--- NOTE | 2024-02-02 06:05 | Ultrasound Report ---
Exam(s): US VENOUS LEFT LOWER EXTREMITY EXAM: US Duplex Left Lower Extremity Veins CLINICAL HISTORY: Reason for exam: leg swelling. TECHNIQUE: Real-time duplex ultrasound scan of the left lower extremity veins integrating B-mode two-dimensional vascular structure, Doppler spectral analysis, color flow Doppler imaging and compression. COMPARISON: No relevant prior studies available. FINDINGS: Deep veins: Unremarkable. No DVT in the visualized common femoral, femoral, proximal deep femoral or popliteal veins. The veins demonstrate normal color flow, are normally compressible, with normal phasic flow and/or augmentation response. Superficial veins: Unremarkable. No thrombus in the visualized great saphenous vein. Soft tissues: No acute findings. No popliteal cyst. There is a 1.4 x 1.3 cm lymph node with an echogenic hilum and the popliteal fossa. Follow-up recommended. IMPRESSION: 1. Normal left lower extremity duplex venous ultrasound. 2. There is a small 1.4 x 1.3 x 0.9 cm probable left popliteal fossa lymph node. Follow-up recommended. Electronically signed by: Alexey Santamaria MD 02/02/24 06:04 AM
[2024-02-02] MEDS ORDERED: ESZOPICLONE 1 MG TAB PO PRN (06:48)
--- NOTE | 2024-02-02 07:19 | XRay Report ---
XR chest 1V not portable HISTORY: Sepsis COMPARISON: Chest 08/30/2020. FINDINGS: There are low lung volumes. No pneumothorax. No pleural effusions. The heart remains enlarg ed. A cardiac monitoring device overlies the mid chest. There is a left subclavian Port-A-Cath which terminates within the SVC. No evidence for pulmonary edema. No focal lung consolidations to suggest a pneumonia. No acute fractures. Degenerative changes within the shoulders. IMPRESSION: No significant change compared to the prior study. No acute process. Stable cardiomegaly. ACT 112: Negative or not required by law. Electronically signed by: Rudy Borden M.D. 02/02/2024 7:18 AM
--- OUTSIDE RECORDS SUMMARY | 2024-02-02 08:46 | External Medical Summary | Summary of Care ---
Author Name Unknown Organization [facility] Address [address] [facility] [facility] [place] [address] Phone [phone] Care Team Providers Care Integrated Marketing Manager Name Role Phone Scott Weldon MD Primary Care Provider + Reason for Visit * Reason Onset Date Comments Test Results 01/29/2024 Test Results Encounter Details Date Type Department Care Team (Late st Contact Info) Description 01/29/2024 Telephone Family Practice [facility] [address] [place] [id number] Scott Weldon MD [address] [place] [id number] Test Results (Test Results) Allergies Active Allergy Reactions Criticality Noted Date Comments Naproxen Sodium Bleeding High 11/29/2013 Pollen 12/03/2022 Seasonal Food (See Comments) Anaphylaxis High 04/20/2019 Hot peppers (oils) Kiwi Extract Anaphylaxis High 04/20/2019 documented as of this encounter (statuses as of 02/01/2024) Medications Medication Sig Dispensed Refills Start Date End Date Status ONETOUCH ULTRASOFT LANCETS MISCIndications:DM type 2, not at goal (HCC) check FS 6 times daily 4 Box 5 06/22/2014 Active insulin glargine (LANTUS SOLOSTAR) 100 UNIT/ML [...] pump 200 Strip 5 02/17/2017 Active Insulin Infusion Pump (MINIMRumgr 630G INSULIN PUMP) KITIndications:Type 2 diabetes mellitus with hemoglobin A1c goal of less than 8.0% ([facility]) Use as directed. 07/30/2017 Active CPAP every night at bedtime. Active Glucagon Emergency 1 MG Injection Kit As directed 1 Kit 3 09/04/2022 Active Dicyclomine HCl 20 MG Oral Tablet (Bentyl) Take 1 Tablet by mouth 2 times a day as needed for Pain or Cramping. 180 Tablet 3 11/14/2022 Active Naloxone HCl 4 MG/0.1ML Nasal Liquid (Narcan Nasal)Indications:C ontrolled substance agreement signed,Chronic pain syndrome Administer 1 spray into 1 nostril for suspected opioid overdose. Seek immediate medical attention. [email or web address] 1 Each 3 11/27/2022 Active Atenolol 100 MG Oral Tablet (Tenormin)Indicatio ns:Tachycardia TAKE 1 TABLET BY MOUTH TWICE A DAY 180 Tablet 3 04/09/2023 Active Loratadine 10 MG Oral Tablet (Claritin)Indicatio ns:Allergic rhinitis TAKE 1 TABLET BY MOUTH IN THE MORNING FOR ALLERGIES. 90 Tablet 1 04/13/2023 Active Additional Information Patient taking differently:10 mg Oral Daily(AM), For allergies.,Indications: as needed, Reported on 10/01/2023 NovoLIN R ReliOn 100 UNIT/ML Injection Solution (insulin REGULAR human)Indications:T ype 2 diabetes mellitus with hemoglobin A1c goal of less than 8.0% (HCC),DM type 2, not at goal (HCC) INJECT UP TO 200 UNITS SUBCUTANEOSULY ONCE DAILY VIA PUMP 60 mL 05/05/2023 Active Pregabalin 100 MG Oral Capsule (Lyrica)Indications :Bilateral low back pain with sciatica, sciatica laterality unspecified, unspecified chronicity TAKE 1 CAPSULE BY MOUTH EVERY DAY IN THE MORNING , AT NOON, AND BEFORE BEDTIME 270 Capsule 1 06/05/2023 Active traZODone HCl 100 MG Oral Tablet (Desyrel) Take 1-2 Tablets by mouth at bedtime. 180 Tablet 1 07/29/2023 Active Ozempic (2 MG/DOSE) 8 MG/3ML Subcutaneous Solution Pen-injector (Semaglutide (2 MG/DOSE)) 2 mg once. Ozempic weekly on Sundays08/06/2023 Active Ondansetron 8 MG Oral Tablet Disintegrating (Zofran) PLACE 1 TABLET ON TONGUE AND DISSOLVE EVERY 8 HOURS NEEDED FOR NAUSEA 30 Tablet 08/10/2023 Active Escitalopram Oxalate 20 MG Oral Tablet (Lexapro) Take 1 Tablet by mouth in the morning. 90 Tablet 1 08/25/2023 Active Pantoprazole Sodium 40 MG Oral Tablet Delayed Release (Protonix)Indicatio ns:Esophageal varices without bleeding, unspecified esophageal varices type (HCC),Colitis Take 1 Tablet by mouth in the morning. 90 Tablet 3 09/01/2023 Active Atorvastatin Calcium 40 MG Oral Tablet (Lipitor)Indication s:Dyslipidemia, goal LDL below 100 TAKE 1 TABLET BY MOUTH EVERY DAY IN THE MORNING 90 Tablet 3 09/14/2023 Active Additional Information Patient taking differently: 40 mg Oral HS, Reported on 10/01/2023 Furosemide 40 MG Oral Tablet (Lasix) Take 1 Tablet by mouth in the morning and 1 Tablet before bedtime. 10/13/2023 Active Magnesium Oxide -Mg Supplement 400 (240 Mg) MG Oral Tablet (Mag-Ox)Indications :Hypomagnesemia Take 1 Tablet by mouth in the morning. 90 Tablet 3 10/21/2023 Active Metoclopramide HCl 5 MG Oral Tablet (Reglan) Take 1 Tablet by mouth in the morning and 1 Tablet at noon and 1 Tablet in the evening. Take before meals. If needed for nausea. 30 Tablet 10/21/2023 Active Meclizine HCl 25 MG Oral Tablet (Antivert)Indicatio ns:Vertigo Take 1 Tablet by mouth 3 times a day as needed for Dizziness. 30 Tablet 1 11/17/2023 Active Losartan Potassium 25 MG Oral Tablet (Cozaar)Indications :HTN, goal below 130/80 Take 1 Tablet by mouth every night at bedtime. 90 Tablet 1 11/16/2023 Active Eszopiclone 2 MG Oral Tablet (Lunesta) Take 1 Tablet by mouth at bedtime. 30 Tablet 1 11/30/2023 Active Empagliflozin 10 MG Oral Tablet (Jardiance)Indicati ons:Type 2 diabetes mellitus with hemoglobin A1c goal of less than 8.0% (HCC) Take 1 Tablet by mouth in the morning. Please get blood work completed the week of December 06. 30 Tablet 5 12/14/2023 Active metFORMIN HCl 1000 MG Oral Tablet (Glucophage)Indicat ions:Type 2 diabetes mellitus with hemoglobin A1c goal of less than 8.0% (HCC) Take 1 Tablet by mouth daily. Dose decrease 90 Tablet 1 12/17/2023 Active Potassium Chloride Laura ER 20 MEQ Oral Tablet Extended Release Take 1 Tablet by mouth in the morning. 90 Tablet 1 12/31/2023 Active Albuterol Sulfate HFA 108 (90 Base) MCG/ACT Inhalation Aerosol Solution INHALE 2 PUFFS BY MOUTH EVERY 6 HOURS NEEDED FOR SHORTNESS OF BREATH 18 g 5 01/07/2024 Active Buprenorphine 5 MCG/HR Transdermal Patch Weekly (Butrans)Indication s:Controlled substance agreement signed,Chronic bilateral low back pain with sciatica, sciatica laterality unspecified,Chronic pain syndrome Place 1 Patch topically on the skin once a week. 4 Patch 01/11/2024 Active Baclofen 10 MG Oral Tablet (Lioresal)Indicatio ns:Back spasm Take 1 Tablet by mouth in the morning and 1 Tablet at noon and 1 Tablet before bedtime. 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 Krishna 5y per GI. EGD Grade II esoph varices, multiple gastric polyps hyperplastic. Need pap/mammo. UTOX due 08/26 10/28 EGD-Mild [...] A1c goal of less than 8.0% 06/22/2014 Stroke 06/08/2012 Vitamin D deficiency 03/02/2012 HTN, goal below 130/80 01/26/2012 Overview: Per HTN Protocol #27. 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 documented as of this encounter (statuses as of 02/01/2024) Resolved Problems Problem Noted Date Diagnosed Date [...] Overview: Per Obesity Taxonomy Coronary atherosclerosis of [place] coronary artery 09/15/2008 10/03/2008 Malaise and fatigue [...] as of this encounter (statuses as of 02/01/2024) Immunizations Name Administration Dates Next Due COVID-19 mRNA, LNP-s, No Pre serve, 2-Dose Series ([place] NetentSec) 11/08/2020,10/11/2020 HEP A - Hepatitis A (Adult > 18 yrs) 04/11/2011, 09/20/2010 Hepatitis B, 20+ yrs 07/05/2015 Pneumococcal Conjugate Vacci ne, 20-valent ([id number]) 03/13/2023 Pneumococcal Polysaccharide PPV23 (Pneumovax) 02/19/2018,03/09/2007 Seasonal Influenza, PF, 6 M & above, IM , (FluLaval or Fluzone) 03/13/2023,03/01/2021,02/28/2020,03/09,02/19/2018,03/02/2017 Seasonal Influenza, Quadriva lent, No Preserve, IM 03/20/2016,07/05/2015 Seasonal Influenza, Split, I IV3, With Preserve, Inj 06/22/2014,03/03/2013,04/09/2012,04/11,02/25/2010,02/19/2009,05/17/2008 ,03/09/2007 TDAP (age 10 and older)(Boostrix) 08/05/2018 TDAP, Age 7 and older, IM (Adacel) 05/15/2008 Zoster Vaccine Recombinant (Shingrix) 11/25/2023 ,04/19/2023 documented as of this encounter Social History [...] the money to buy more. Never true 10/07/19 24 Within the past 12 months, t he food you bought just didn't last and you didn't have money to get more. Never true 10/07/2023 Childcare Answer Date Recorded Do you feel overwhelmed with taking care of a child, family member or friend? No 10/07/2023 Does your family need help f inding childcare? (Household - for ages 0-17 years) Not on file 10/07/2023 Clothing Answer Date Recorded Have you been unable to get clothing when it was really needed? No 10/07/2023 Is your family able to get c lothes or diapers when needed? (Household - for ages 0-17 years) Not on file 10/07/2023 Personal Safety Answer Date Recorded Do you feel unsafe or have concerns for your saf ety? No 10/07/2023 Do you have concerns for you r family's safety? (Household - for ages 0-17 years) Not on file 10/07/2023 Utilities Answer Date Recorded Do you have trouble paying y our heating, water, or electric bill? No 10/07/2023 Is your family able to pay t he heat, water, or electric bill? (Household - for ages 0-17 years) Not on file 10/07/2023 Does your family have access to good internet? (Household - for ages 0-17 years) Not on file 10/07/2023 Employment Status Answer Date Recorded Are you unemployed or without regular income? No 10/07/2023 Does the household have a re gular source of income? (Household - for ages 0-17 years) Not on file 10/07/2023 Social Connections Answer Date Recorded How often do you feel lonely or isolated from those around you? Sometimes 10/07/2023 Financial Resource Strain Answer Date R ecorded Do you have any trouble payi ng for your medications, or do you think you might in the future? No 10/07/2023 Does your family have troubl e paying for medicine? (Household - for ages 0-17 years) Not on file 10/07/2023 Transportation Needs Answer Date Record ed READ ONLY Do you have troubl e getting a ride to medical visits or work? Sometimes True 10/07/2023 Does your family have a hard time getting a ride to doctors visits? (Household - for ages 0-17 years) Not on file 10/07/2023 Has lack of transportation k ept you from medical appointments, meetings, work, or from getting things needed for daily living? Check all that apply. (Adult - for ages 18 years and over) Not on file 10/07/2023 Do you (or your family) have trouble finding or paying for a ride (transportation)? (Household - for ages 0-17 years) Not on file 10/07/2023 Housing Stability Answer Date Recorded Do you currently live in a s helter or have no steady place to sleep at night? No 10/07/2023 READ ONLY Do you think you a re at risk of becoming homeless? No 10/07/2023 Does your family worry about paying for your home or becoming homeless? (Household - for ages 0-17 years) Not on file 0 10/07/2023 Are you homeless or worried that you might be in the future? (Adult - for ages 18 years and over) Not on file Are you (or your family) ruben eless or worried that you might be in the future? (Household - for ages 0-17 years) Not on file Food Insecurity Answer Date Recorded Do you need food for this week? No 10/07/2023 Are you able to get enough f ood for your family? (Household - for ages 0-17 years) Not on file 10/07/2023 Does your family need food t his week? (Household - for ages 0-17 years) Not on file 10/07/2023 Do you always have enough fo od for your family? (Household - for ages 0-17 years) Not on file 10/07/2023 Sex and Gender Information Value Date Recorded [...] Telephone Encounter - Venecia Chou LPN - 02/01/2024 11:23 AM EDT Sent my g * Telephone Encounter - Alison Ellison LPN - 01/30/2024 12:00 PM EDT Called pt an on home phone - no answer and vm is full and unable to leave message. * Telephone Encounter - Elisa Caldera CRNP - 01/29/2024 3:34 PM EDT Called patient -- no answer. Will send myG -- would like her to recheck lipase, CMP on Thursday. Labssuggest she may have been dehydrated as well and would encourage her to push fluids. * Telephone Encounter - Patrica Shane LPN - 01/29/2024 2:40 PM EDT Lab results? * Telephone Encounter - Tamera Baltazar OSA - 01/29/2024 1:07 PM EDT Who is Requesting Test Results: Pt , she says she is not feeling well still and would Like to know if PCP can call her and go over labs and next steps Primary Care Provider : Scott Weldon MD Tests Results Requested : Labs Date of Test : 01/28/2024 Location of Test: [facility] Ordering Provider: Elisa Caldera Patient has been made aware that the turnaround time for test results are typically as follows: Laboratory results = within 2-3 days ([facility]), 3-5 days (Non-[facility], ie. [facility]) Urine Cultures = within 2-3 days depending on growth within the culture Pathology results (biopsy results/PAP) = 1-2 weeks Radiology results = about 1 week Cologuard results = within 2 weeks from the shipment date COVID testing = about 24 hours documented in this encounter Plan of Treatment Upcoming Encounters Date Type Department Care Team (Latest Contact Info) Description 4 10:30 AM EDT Office Visit Pharmacy, [place] [address] [place] [address] [facility] [address] [place] [address] 4 2:15 PM EDT Office Visit [facility]ematology/[facility] [address] [facility] [place] [id number] Sunil Bourgeois MD [address] [facility] [place] [address] 4 12:00 PM EDT Telemedicine Psychiatry, [facility] [address] [facility] [place] [address] Rj Mai MD [address] [place] [address] 4 12:20 PM EDT Office Visit Family Practice [facility] [address] [facility] [place] [address] Scott Weldon MD [address] [facility] [place] [address] 4 12:30 PM EDT Office Visit Ophthalmology, [facility] [address] [facility] [place] [address] Rolan Self, DO [address] [facility] [place] [address] 4 11:15 AM EDT Hospital Encounter ENDO [facility], Endoscopy Room [facility] [address] [place], [place] [address] Aj Pruett, DO [address] [place] [address] 4 11:15 AM EDT - 4 11:45 AM EDT Surgery [facility], Endoscopy Room [facility] [address] [place] [phone] Aj Pruett, DO [address] [place] [address] ESOPHAGOGASTRODUODENOSCOPY (EGD), FLEXIBLE, TRANSORAL, DIAGNOSTIC 4 11:00 AM EST Telemedicine Pharmacy, [facility] [address] [place] [address] [facility] [address] [place] [address] 4 1:40 PM EST Office Visit Nephrology, [facility] [address] [facility] [place] [address] Jonathan Mathew MD [address] [facility] [place] [address] 5 8:00 AM EST Office Visit Family Practice [facility] [address] [place] [address] Scott Weldon MD [address] [place] [address] Scheduled Orders Name Type Priority Associated Diagnoses Orde r Schedule LIPASE Lab Routine Elevated lipase LUQ pain Expected: 01/29/2024 (Approximate), Expires: 01/28/2025 COMPREHENSIVE METABOLIC PANEL Lab Routine Elevated lipase LUQ pain Expected: 01/29/2024 (Approximate), Expires: 01/28/2025 Scheduled Procedures Name Priority Associated Diagnoses Date/Ti me ESOPHAGOGASTRODUODENOSCOPY ( EGD), FLEXIBLE, TRANSORAL, DIAGNOSTIC Portal hypertensive gastropathy (HCC) Multiple gastric polyps 03/25/2024 11:15 AM EDT COLONOSCOPY FLEXIBLE PROXIMA L DIAGNOSTIC Recall History of colonic polyps Health Maintenance Due Date Last Done Comments Cologuard 2017 Fecal Occult Blood Test 2017 Sigmoidoscopy 2017 Diabetic Eye Exam 01/16/2023 01/16/2022, , 12/14/2019, Additional history exists COVID-19 Vaccine ( season) 2023 11/08/2020, 10/11/2020 Influenza Vaccine (FLU shot) (#1) 2024 03/13/2023, 03/01/2021, 02/28/2020, Additional history exists Depression Monitoring 03/13/2024 03/13/2023 Diabetic Foot Exam 03/13/2024 03/13/2023, 0 10/03/2021, 11/07/2019, Additional history exists HbA1c 05/14/2024 11/13/2023, 07/09, 02/18/2023, Additional history exists Albumin/Creatinine Ratio 07/23/2024 024, 04/06/2023, 03/11/2022, Additional history exists Mammogram 09/01/2024 09/02/2023, 04/10, 01/21/2016 B-12 09/07/2024 09/08/2023, 09/2022, 06/14/2020, Additional history exists GFR 01/27/2025 01/28/2024, 01/06, 12/16/2023, Additional history exists Pap Smear 09/07/2026 09/08/2023, 10/2014, 04/12/2015, Additional history exists DTaP,Tdap,and Td Vaccines (3 - Td or Tdap) 08/05/2028 08/05/2018, 05/15/2008 Cervical Cancer Screening 09/07/2028 HPV/Co-Test 09/07/2028 09/08/2023 Colonoscopy 10/04/2028 10/05/2023, 09/07, 06/27/2015, Additional history exists Colorectal Cancer Screening 10/04/2028 Pneumococcal Vaccine: Pediatrics (0 to 5 Years) and At-Risk Patients (6 to 64 Years) Completed 03/13/2023, 02/19/2018, 03/09/2007 RETIRED - COLONOSCOPY-EVERY 5 YRS AGES 18-100 Discontinued 10/05/2023, 10/05/2023, 06/27/2015, Additional history exists Zoster Vaccines Completed 11/25/2023, 04/19/2023 HPV (Gardasil) Vaccine Aged Out No lo nger eligible based on patient's age to complete this topic MENINGOCOCCAL (MENACTRA/MENVEO) Aged Out No longer eligible based on patient's age to complete this topic documented as of this encounter Medical Devices Implanted Type Area Electric Stove Installer Device Identifier Shelf Expiration Date Model / Serial / Lot Neurostimul Intellis Adaptiv - [id number] - [id number] Implanted:Qty: 1 on 08/22/2022 by Rafia Small MD at OR [facility] N/A: Spine Lumbar [employer] 06/21/2023 [id number] / [id number] / Description:battery Medtronic Lead Kit 60 Cm Implanted:Qty: 1 on 08/22/2022 by Rafia Small MD at OR [facility] N/A: Spine Lumbar 02/01/2026 [id number] / / [id number] Medtronic Lead Kit 60cm Implanted:Qty: 1 on 08/22/2022 by aRfia Small MD at OR [facility] N/A: Spine Lumbar 03/21/2026 [id number] / / [id number] Envelope Tyrx Med Antibacteril - [id number] Implanted:Qty: 1 on 08/22/2022 by Rafia Small MD at OR [facility] N/A: Spine Lumbar [employer] 03/10/2023 [id number] / / [id number] Hemostatic Clip Res 235cm - [id number] Implanted:Qty: 4 on 10/05/2023 by Aj Pruett DO at ENDOSCOPY [facility] : ENDOSCOPY 02/03/2026 [id number] / / Hemostatic Clip Res 235cm - [id number] Implanted:Qty: 1 on 10/05/2023 by Aj Pruett, DO at ENDOSCOPY [facility] : ENDOSCOPY 02/02/2026 [id number] / / documented as of this encounter Visit Diagnoses Diagnosis Elevated lipase- Primary Other nonspecific abnormal serum enzyme levels LUQ pain Abdominal pain, left upper quadrant Portal hypertensive gastropathy (HCC) Other specified disorder of stomach and duodenum Multiple gastric polyps Benign neoplasm of stomach documented in this encounter Advance Directives * Full Code (Latest Code Status on File) Date Activated Date Inactivated Comments 04/20/2019 11:06 AM 04/21/2019 6:32 PM This orde r reflects the patients wishes and were consensually agreed upon. Question Answer Comments Discussion of Advance Directives occurred with: Patient Does the patient have a Living Will? No Does the patient have Health Care Power of Attor narda? No * Full Code Date Activated Date Inactivated Comments 01/21/2011 12:12 PM 01/22/2011 8:48 PM This order reflects the patients wishes and were consensually agreed upon. Question Answer Comments Discussion of Advance Directives occurred with: Patient Does the patient have a Living Will? No Does the patient have Health Care Power of Attor narda? No Care Teams Integrated Marketing Manager Relationship Specialty Start Date End Date Scott Wedlon MD [address] [place] [address] PCP - General Family Medicine 08/03/18 documented as of this encounter
--- OUTSIDE RECORDS SUMMARY | 2024-02-02 08:46 | External Medical Summary | Summary of Care ---
Author Name Unknown Organization [facility] Address [address] [place] [address] Phone [phone] Care Team Providers Care Rn Bone Marrow Transplant Name Role Phone Scott Weldon MD Primary Care Provider + Reason for Visit * Reason Onset Date Comments Medication Refill 02/01/2024 Encounter Details Date Type Department Care Team (Late st Contact Info) Description 02/01/2024 Refill Psychiatry, [address] [address] Rj Mai MD [address] [place] [address] Allergies Active Allergy Reactions Criticality [...] times daily 4 Box 5 5 Active insulin glargine (LANTUS SOLOSTAR) 100 UNIT/ML [...] pump 200 Strip 5 7 Active Insulin Infusion Pump (MINIMED 630G INSULIN PUMP) KITIndications:Type 2 diabetes mellitus with hemoglobin A1c goal of less than 8.0% (HCC) Use as directed. 8 Active CPAP every night at bedtime. Active Glucagon Emergency 1 MG Injection Kit As directed 1 Kit 3 3 Active Dicyclomine HCl 20 MG Oral Tablet (Bentyl) Take 1 Tablet by mouth 2 times a day as needed for Pain or Cramping. 180 Tablet 3 3 Active Naloxone HCl 4 MG/0.1ML Nasal Liquid (Narcan Nasal)Indications:C ontrolled substance agreement signed,Chronic pain syndrome Administer 1 spray into 1 nostril for suspected opioid overdose. Seek immediate medical attention. [email or web address] [email or web address]/[email or web address]?v=v26c [email or web address] 1 Each 3 3 Active Atenolol 100 MG Oral Tablet (Tenormin)Indicatio ns:Tachycardia TAKE 1 TABLET BY MOUTH TWICE A DAY 180 Tablet 3 3 Active Loratadine 10 MG Oral Tablet (Claritin)Indicatio ns:Allergic rhinitis TAKE 1 TABLET BY MOUTH IN THE MORNING FOR ALLERGIES. 90 Tablet 1 3 Active Additional Information Patient taking differently:10 mg Oral Daily(AM), For allergies.,Indications: as needed, Reported on 10/01/2023 NovoLIN R ReliOn 100 UNIT/ML Injection Solution (insulin REGULAR human)Indications:T ype 2 diabetes mellitus with hemoglobin A1c goal of less than 8.0% (HCC),DM type 2, not at goal (HCC) INJECT UP TO 200 UNITS SUBCUTANEOSULY ONCE DAILY VIA PUMP 60 mL 3 Active Pregabalin 100 MG Oral Capsule (Lyrica)Indications :Bilateral low back pain with sciatica, sciatica laterality unspecified, unspecified chronicity TAKE 1 CAPSULE BY MOUTH EVERY DAY IN THE MORNING , AT NOON, AND BEFORE BEDTIME 270 Capsule 1 3 Active traZODone HCl 100 MG Oral Tablet (Desyrel) Take 1-2 Tablets by mouth at bedtime. 180 Tablet 1 4 Active Ozempic (2 MG/DOSE) 8 MG/3ML Subcutaneous Solution Pen-injector (Semaglutide (2 MG/DOSE)) 2 mg once. Ozempic weekly on Sundays 4 Active Ondansetron 8 MG Oral Tablet Disintegrating (Zofran) PLACE 1 TABLET ON TONGUE AND DISSOLVE EVERY 8 HOURS NEEDED FOR NAUSEA 30 Tablet 4 Active Escitalopram Oxalate 20 MG Oral Tablet (Lexapro) Take 1 Tablet by mouth in the morning. 90 Tablet 1 4 Active Pantoprazole Sodium 40 MG Oral Tablet Delayed Release (Protonix)Indicatio ns:Esophageal varices without bleeding, unspecified esophageal varices type (HCC),Colitis Take 1 Tablet by mouth in the morning. 90 Tablet 3 4 Active Atorvastatin Calcium 40 MG Oral Tablet (Lipitor)Indication s:Dyslipidemia, goal LDL below 100 TAKE 1 TABLET BY MOUTH EVERY DAY IN THE MORNING 90 Tablet 3 4 Active Additional Information Patient taking differently: 40 mg Oral HS, Reported on 10/01/2023 Furosemide 40 MG Oral Tablet (Lasix) Take 1 Tablet by mouth in the morning and 1 Tablet before bedtime. 4 Active Magnesium Oxide -Mg Supplement 400 (240 Mg) MG Oral Tablet (Mag-Ox)Indications :Hypomagnesemia Take 1 Tablet by mouth in the morning. 90 Tablet 3 4 Active Metoclopramide HCl 5 MG Oral Tablet (Reglan) Take 1 Tablet by mouth in the morning and 1 Tablet at noon and 1 Tablet in the evening. Take before meals. If needed for nausea. 30 Tablet 4 Active Meclizine HCl 25 MG Oral Tablet (Antivert)Indicatio ns:Vertigo Take 1 Tablet by mouth 3 times a day as needed for Dizziness. 30 Tablet 1 4 Active Losartan Potassium 25 MG Oral Tablet (Cozaar)Indications :HTN, goal below 130/80 Take 1 Tablet by mouth every night at bedtime. 90 Tablet 1 4 Active Empagliflozin 10 MG Oral Tablet (Jardiance)Indicati ons:Type 2 diabetes mellitus with hemoglobin A1c goal of less than 8.0% (HCC) Take 1 Tablet by mouth in the morning. Please get blood work completed the week of December 06. 30 Tablet 5 4 Active metFORMIN HCl 1000 MG Oral Tablet (Glucophage)Indicat ions:Type 2 diabetes mellitus with hemoglobin A1c goal of less than 8.0% (HCC) Take 1 Tablet by mouth daily. Dose decrease 90 Tablet 1 4 Active Potassium Chloride Laura ER 20 MEQ Oral Tablet Extended Release Take 1 Tablet by mouth in the morning. 90 Tablet 1 4 Active Albuterol Sulfate HFA 108 (90 Base) MCG/ACT Inhalation Aerosol Solution INHALE 2 PUFFS BY MOUTH EVERY 6 HOURS NEEDED FOR SHORTNESS OF BREATH 18 g 5 4 Active Buprenorphine 5 MCG/HR Transdermal Patch Weekly (Butrans)Indication s:Controlled substance agreement signed,Chronic bilateral low back pain with sciatica, sciatica laterality unspecified,Chronic pain syndrome Place 1 Patch topically on the skin once a week. 4 Patch 4 Active Baclofen 10 MG Oral Tablet (Lioresal)Indicatio ns:Back spasm Take 1 Tablet by mouth in the morning and 1 Tablet at noon and 1 Tablet before bedtime. 90 Tablet 3 4 Active hydrOXYzine HCl 25 MG Oral Tablet TAKE 1 TAB DURING DAY EVERY 4-6 HOURS NEEDED AND TAKE 2 TABS AT BEDTIME NEEDED FOR ANXIETY 120 Tablet 1 4 Active Eszopiclone 2 MG Oral Tablet (Lunesta) Take 1 Tablet by mouth at bedtime. 30 Tablet 4 Active Eszopiclone 2 MG Oral Tablet (Lunesta) Take 1 Tablet by mouth at bedtime. 30 Tablet 1 4 02/01/20 24 Discontinu ed(Refill) documented as of this [...] 1y trigger shot/SI injection consent signed Family friend-[facility]. Son Ricky-fall. Also son Hieu. [...] Overview: Per Obesity Taxonomy Coronary atherosclerosis of [place] coronary artery 09/15/2008 10/03/2008 Malaise and [...] mRNA, LNP-s, No Pre serve, 2-Dose Series ([employer]) 11/08/2020,10/11/2020 HEP A - Hepatitis A (Adult > 18 yrs) 04/11/2011, 09/20/2010 Hepatitis B, 20+ yrs 07/05/2015 Pneumococcal Conjugate Vacci ne, 20-valent ([id number]) 03/13/2023 Pneumococcal Polysaccharide PPV23 (Pneumovax) 02/19/2018,03/09/2007 Seasonal [...] No 10/07/2023 Does the household have a [facility] income? (Household - for ages [...] encounter Miscellaneous Notes * Telephone Encounter - Grace Freeman MD - 02/01/2024 1:07 PM EDTSigned Prescriptions: Disp Refills Eszopiclone 2 MG Oral Tablet (Lunesta) 30 Tab*0 Sig: Take 1 Tablet by mouth at bedtime. Authorizing Provider: GRACE FREEMAN * Telephone Encounter - Gwen Falcon MED ASSIST - 02/01/2024 11:21 AM EDTPending Prescriptions: Disp Refills Eszopiclone 2 MG Oral Tablet (Lunesta) 30 Tab*1 Sig: Take 1 Tablet by mouth at bedtime. * Telephone Encounter - Gwen Falcon MED ASSIST - 02/01/2024 11:20 AM EDT Refill request from patient (MaryannG) for Lunesta. Medication last filled on 11/30/23 with 1 refills. Patient last seen on 01/27/24 with return appointment scheduled for 02/29/24. Patient had 0 cancelled appointments and 0 NO SHOW appointments. documented in this encounter Plan of Treatment Upcoming Encounters Date Type Department Care Team (Latest Contact Info) Description 09/05/202 4 10:30 AM EDT Office Visit Pharmacy, [place] [address] [place] [address] [facility] [address] [place] [address] 4 2:15 PM EDT Office Visit Hematology/Onco logy [facility] [address] [place] [id number] Sunil Bourgeois MD [address] [facility] [place] [address] 4 12:00 PM EDT Telemedicine Psychiatry, [facility] [address] [facility] [place] [address] Rj Mai MD [address] [place] [address] 4 12:20 PM EDT Office Visit Family Practice [facility] [address] [facility] [place] [address] Scott Weldon [facility] [place] [address] 4 12:30 PM EDT Office Visit Ophthalmology, [facility] [address] [facility] [place] [address] Rolan Self, DO [address] [place] [address] 4 11:15 AM EDT Hospital Encounter ENDO [facility], Endoscopy Room [facility] [address] [place] [id number] Aj Pruett, DO [address] [place] [address] 4 11:15 AM EDT - 4 11:45 AM EDT Surgery ENDO [facility], Endoscopy Room [facility] [address] [place] [id number] Aj Pruett DO [address] [place] [address] ESOPHAGOGASTRODUODENOSCOPY (EGD), FLEXIBLE, TRANSORAL, DIAGNOSTIC 4 11:00 AM EST Telemedicine Pharmacy, [facility] [address] [place] [address] [facility] [address] [place] [address] 4 1:40 PM EST Office Visit Nephrology, [facility] [address] [facility] [place] [address] Jonathan Mathew MD [address] [facility] [place] [address] 5 8:00 AM EST Office Visit Family Practice [facility] [address] [place] [address] Scott Weldon MD [address] [place] [address] Scheduled Procedures Name Priority Associated Diagnoses Date/Ti [...] this encounter Medical Devices Implanted Type Area Cane Weigher Device Identifier Shelf Expiration Date Model / Serial / Lot Neurostimul Bladeis [employer] - [id number] - [id number] Implanted:Qty: 1 on 08/22/2022 by Rafia Small MD at OR [facility] N/A: Spine Lumbar [employer] 06/21/2023 [id number] / [id number] / Description:battery Medtronic Lead Kit 60 Cm Implanted:Qty: 1 on 08/22/2022 by Rafia Small MD at OR [facility] N/A: Spine Lumbar 02/01/2026 [id number] / / [id number] Medtronic Lead Kit 60cm Implanted:Qty: 1 on 08/22/2022 by Rafia Small MD at OR [facility] N/A: Spine Lumbar 03/21/2026 [id number] / / [id number] Envelope Tyrx Med Antibacteril - [id number] Implanted:Qty: 1 on 08/22/2022 by Rafia Small MD at OR [facility] N/A: Spine Lumbar [employer] 03/10/2023 [id number] / / [id number] Hemostatic Clip Res 235cm - [id number] Implanted:Qty: 4 on 10/05/2023 by Aj Pruett DO at ENDOSCOPY [facility] ENDOSCOPY 02/03/2026 [id number] / / Hemostatic Clip Res 235cm - [id number] Implanted:Qty: 1 on 10/05/2023 by Aj Pruett DO at ENDOSCOPY [facility] [employer] : ENDOSCOPY 02/02/2026 [id number] / / documented as of this encounter Advance Directives * Full Code [...] Power of Attor narda? No Care Teams Rn Bone Marrow Transplant Relationship Specialty Start Date End Date Scott Weldon MD [address] [place] [address] PCP - General Family Medicine 08/03/18 documented as of this encounter
--- OUTSIDE RECORDS SUMMARY | 2024-02-02 08:47 | External Medical Summary | Summary of Care ---
Author Name Unknown Organization [facility] Address [address] [facility] [place] [address] Phone [phone] Care Team Providers Care Imaging Scheduler Name Role Phone Scott Montoya MD Primary Care Provider + Reason for Visit * Reason Comments eRx-Medication Refill Encounter Details Date Type Department Care Team (Late st Contact Info) Description 01/26/2024 Refill Family Practice [facility] [address] [facility] [place] [address] Scott Montoya MD 132 [facility] [place] [address] Allergies Active Allergy Reactions Criticality Noted Date Comments Naproxen Sodium Bleeding High 11/29/2013 Pollen 12/03/2022 Seasonal Food (See Comments) Anaphylaxis High 04/20/2019 Hot peppers (oils) Kiwi Extract Anaphylaxis High 04/20/2019 documented as of this encounter (statuses as of 01/28/2024) Medications Medication Sig Dispensed Refills Start Date End Date Status ONETOUCH ULTRASOFT LANCETS MISCIndications:DM type 2, not at goal (HCC) check FS 6 times daily 4 Box 5 06/22/19 15 Active insulin glargine (LANTUS SOLOSTAR) 100 UNIT/ML [...] 200 Strip 5 02/18/20 17 Active Insulin Infusion Pump (MINIMPowerMetal Technologies 630G INSULIN PUMP) KITIndications:Typ e 2 diabetes mellitus with hemoglobin A1c goal of less than 8.0% ([facility]) Use as directed. 07/30/19 18 Active CPAP every night at bedtime. Active Glucagon Emergency 1 MG Injection Kit As directed 1 Kit 3 09/05/19 23 Active Dicyclomine HCl 20 MG Oral Tablet (Bentyl) Take 1 Tablet by mouth 2 times a day as needed for Pain or Cramping. 180 Tablet 3 11/15/19 23 Active Naloxone HCl 4 MG/0.1ML Nasal Liquid (Narcan Nasal)Indications: Controlled substance agreement signed,Chronic pain syndrome Administer 1 spray into 1 nostril for suspected opioid overdose. Seek immediate medical attention. [email or web address] 1 Each 3 11/28/19 23 Active Atenolol 100 MG Oral Tablet (Tenormin)Indicati ons:Tachycardia TAKE 1 TABLET BY MOUTH TWICE A DAY 180 Tablet 3 04/09/20 23 Active Loratadine 10 MG Oral Tablet (Claritin)Indicati ons:Allergic rhinitis TAKE 1 TABLET BY MOUTH IN THE MORNING FOR ALLERGIES. 90 Tablet 1 04/13/20 23 Active Additional Information Patient taking differently:10 mg Oral Daily(AM), For allergies.,Indications: as needed, Reported on 10/01/2023 NovoLIN R ReliOn 100 UNIT/ML Injection Solution (insulin REGULAR human)Indications: Type 2 diabetes mellitus with hemoglobin A1c goal of less than 8.0% ([facility]),DM type 2, not at goal (HCC) INJECT UP TO 200 UNITS SUBCUTANEOSULY ONCE DAILY VIA PUMP 60 mL 05/05/20 23 Active Pregabalin 100 MG Oral Capsule (Lyrica)Indication s:Bilateral low back pain with sciatica, sciatica laterality unspecified, unspecified chronicity TAKE 1 CAPSULE BY MOUTH EVERY DAY IN THE MORNING , AT NOON, AND BEFORE BEDTIME 270 Capsule 1 06/05/20 23 Active traZODone HCl 100 MG Oral Tablet (Desyrel) Take 1-2 Tablets by mouth at bedtime. 180 Tablet 1 07/29/19 24 Active Ozempic (2 MG/DOSE) 8 MG/3ML Subcutaneous Solution Pen-injector (Semaglutide (2 MG/DOSE)) 2 mg once. Ozempic weekly on Sundays08/06/19 24 Active Ondansetron 8 MG Oral Tablet Disintegrating (Zofran) PLACE 1 TABLET ON TONGUE AND DISSOLVE EVERY 8 HOURS NEEDED FOR NAUSEA 30 Tablet 08/10/19 24 Active Escitalopram Oxalate 20 MG Oral Tablet (Lexapro) Take 1 Tablet by mouth in the morning. 90 Tablet 1 08/25/19 24 Active Pantoprazole Sodium 40 MG Oral Tablet Delayed Release (Protonix)Indicati ons:Esophageal varices without bleeding, unspecified esophageal varices type (HCC),Colitis Take 1 Tablet by mouth in the morning. 90 Tablet 3 09/01/19 24 Active Atorvastatin Calcium 40 MG Oral Tablet (Lipitor)Indicatio ns:Dyslipidemia, goal LDL below 100 TAKE 1 TABLET BY MOUTH EVERY DAY IN THE MORNING 90 Tablet 3 09/14/19 24 Active Additional Information Patient taking differently: 40 mg Oral HS, Reported on 10/01/2023 Furosemide 40 MG Oral Tablet (Lasix) Take 1 Tablet by mouth in the morning and 1 Tablet before bedtime. 10/13/19 24 Active Magnesium Oxide -Mg Supplement 400 (240 Mg) MG Oral Tablet (Mag-Ox)Indication s:Hypomagnesemia Take 1 Tablet by mouth in the morning. 90 Tablet 3 10/21/19 24 Active Metoclopramide HCl 5 MG Oral Tablet (Reglan) Take 1 Tablet by mouth in the morning and 1 Tablet at noon and 1 Tablet in the evening. Take before meals. If needed for nausea. 30 Tablet 10/21/19 24 Active Meclizine HCl 25 MG Oral Tablet (Antivert)Indicati ons:Vertigo Take 1 Tablet by mouth 3 times a day as needed for Dizziness. 30 Tablet 1 11/17/19 24 Active Losartan Potassium 25 MG Oral Tablet (Cozaar)Indication s:HTN, goal below 130/80 Take 1 Tablet by mouth every night at bedtime. 90 Tablet 1 11/16/19 24 Active Eszopiclone 2 MG Oral Tablet (Lunesta) Take 1 Tablet by mouth at bedtime. 30 Tablet 1 11/30/19 24 Active Empagliflozin 10 MG Oral Tablet (Jardiance)Indicat ions:Type 2 diabetes mellitus with hemoglobin A1c goal of less than 8.0% (HCC) Take 1 Tablet by mouth in the morning. Please get blood work completed the week of December 06. 30 Tablet 5 12/14/19 24 Active metFORMIN HCl 1000 MG Oral Tablet (Glucophage)Indica tions:Type 2 diabetes mellitus with hemoglobin A1c goal of less than 8.0% (HCC) Take 1 Tablet by mouth daily. Dose decrease 90 Tablet 1 12/17/19 24 Active Potassium Chloride Laura ER 20 MEQ Oral Tablet Extended Release Take 1 Tablet by mouth in the morning. 90 Tablet 1 12/31/19 24 Active Albuterol Sulfate HFA 108 (90 Base) MCG/ACT Inhalation Aerosol Solution INHALE 2 PUFFS BY MOUTH EVERY 6 HOURS NEEDED FOR SHORTNESS OF BREATH 18 g 5 01/07/20 24 Active Buprenorphine 5 MCG/HR Transdermal Patch Weekly (Butrans)Indicatio ns:Controlled substance agreement signed,Chronic bilateral low back pain with sciatica, sciatica laterality unspecified,Chroni c pain syndrome Place 1 Patch topically on the skin once a week. 4 Patch 01/11/20 24 Active Baclofen 10 MG Oral Tablet (Lioresal)Indicati ons:Back spasm Take 1 Tablet by mouth in the morning and 1 Tablet at noon and 1 Tablet before bedtime. 90 Tablet 3 01/25/20 24 Active hydrOXYzine HCl 25 MG Oral Tablet TAKE 1 TAB DURING DAY EVERY 4-6 HOURS NEEDED AND TAKE 2 TABS AT BEDTIME NEEDED FOR ANXIETY 120 Tablet 1 01/28/20 24 Active hydrOXYzine HCl 25 MG Oral Tablet Take 1 tab during the day every 4-6 hours as needed for anxiety and take 2 tabs at bedtime as needed for anxiety 450 Tablet 1 10/12/19 24 024 Discontinued documented as of this encounter (statuses as of 01/28/2024) Active Problems Problem Noted Date Diagnosed Date [...] shot/SI injection consent signed Family friend-Tony. Son Ricky-wedfall. Also son Hieu. Sim--2019 melanoma. . 12/24 EGD mild gastritis, krishna 1y 3/18 EGD--food in stomach. Krishna 1y. +gastroparesis? Rx [...] as of this encounter (statuses as of 01/28/2024) Resolved Problems Problem Noted Date Diagnosed Date [...] Taxonomy Coronary atherosclerosis of [place] coronary artery 09/15/2008 10/03/2008 Malaise and fatigue [...] as of this encounter (statuses as of 01/28/2024) Immunizations Name Administration Dates Next Due COVID-19 mRNA, LNP-s, No Pre serve, 2-Dose Series (Pfizer) 11/08/2020,10/11/2020 HEP A - Hepatitis A (Adult > 18 yrs) 04/11/2011, 09/20/2010 Hepatitis B, 20+ yrs 07/05/2015 Pneumococcal Conjugate Vacci ne, 20-valent ([id number]) 03/13/2023 Pneumococcal Polysaccharide PPV23 (Pneumovax) 02/19/2018,03/09/2007 Seasonal [...] No 10/07/2023 Does the household have a [facility] source of income? (Household - for [...] Telephone Encounter - Scott Montoya MD - 01/28/2024 3:27 PM EDTSigned Prescriptions: Disp Refills hydrOXYzine HCl 25 MG Oral Tablet 120 Ta*1 Sig: TAKE 1 TAB DURING DAY EVERY 4-6 HOURS NEEDED AND TAKE 2 TABS AT BEDTIME NEEDED FOR ANXIETY Authorizing Provider: SCOTT MONTOYA * Telephone Encounter - Rosalva Romero RP - 01/28/2024 10:31 AM EDTPending Prescriptions: Disp Refills hydrOXYzine HCl 25 MG Oral Tablet [Pharmac*120 Ta*1 Sig: TAKE 1 TAB DURING DAY EVERY 4-6 HOURS NEEDED AND TAKE 2 TABS AT BEDTIME NEEDED FOR ANXIETY * Telephone Encounter - Rosalva Romero RP - 01/28/2024 10:31 AM EDT [facility] is currently not authorized to approve refills for the pended medication(s) per refill protocol. Please approve if appropriate. Thanks, Rosalva Romero, PharmD Clinical Pharmacist Centralized Clinical Pharmacy Services ([facility]) [phone] 01/28/2024 10:31 AM * Telephone Encounter - Rosalva Romero RPh - 01/28/2024 10:31 AM EDT Pending Prescriptions: Disp Refills hydrOXYzine HCl 25 MG Oral Tablet [Pharma*120 Ta*1 Sig: TAKE 1 TAB DURING DAY EVERY 4-6 HOURS NEEDED AND TAKE 2 TABS AT BEDTIME NEEDED FOR ANXIETY Last Visit: 11/25/2023 (in office), 09/08/2022 (telemedicine) Next Visit: 01/28/2024 If no future appointments scheduled, and last appointment is greater than a year ago, please schedule patient for a follow-up appointment Last date the medication was ordered: 10/11 Pharmacy: [id number] [address] [facility] Is this request for a controlled substance? No Urine Drug Screen: Results for orders placed or performed in visit on 11/25/23 PAIN MANAGEMENT DRUG PANEL, URINE W/ INTERPRETATION Result Value Compliance Interpretation Based on the medication information provided: The negative screening results are CONSISTENT with the information provided. Confirmatory testing is available upon request. Please note Butrans compliance was not evaluated as laboratory testing does not have sufficient sensitivity to consistently detect buprenorphine from patch use. Recommend visual observation of patch use and patch counting as part of Butrans compliance monitoring. Amphetamines Screen, U Negative Benzodiazepines Screen, U Negative Cannabinoids Screen, U Negative Cocaine Metabolite Screen, U Negative Fentanyl Screen, U Negative Hydrocodone Screen, U Negative Methadone Metabolite Screen, U Negative Morphine/Codeine Screen, U Negative Oxycodone Screen, U Negative Valid Interpretation Normal Creatinine, U 65 Narrative Cutoff Concentrations: Drug Level Amphetamines 500 [...] Labs: Lab Results Component Value Date/Time CREAT 1.5 (H) 01/18/2024 11:05 AM CREAT 1.1 (H) 06/14/2020 09:00 AM POTASSIUM 4.1 01/18/2024 11:05 AM POTASSIUM 4.2 06/14/2020 09:00 AM POTASSIUM 4.5 07/18/1996 10:50 AM TSH 0.73 04/06/2020 01:20 PM LDLCALC 54 07/23/2023 12:00 PM LDLCALC 62 12/12/2019 09:47 AM LDLDIRECT NOT APPLICABLE 12/12/2019 09:47 AM LDLDIRECT 72 11/28/2015 04:11 PM ALT 14 08/20/2023 11:27 AM ALT 17 06/14/2020 09:00 AM HGBA1C 6.3 (H) 11/13/2023 10:07 AM HGBA1C 7.9 (H) 06/14/2020 09:00 AM documented in this encounter Plan of Treatment Upcoming Encounters Date Type Department Care Team (Latest Contact Info) Description 4 10:30 AM EDT Office Visit Pharmacy, [address] [address] [facility] [place] [address] 4 2:15 PM EDT Office Visit Hematology/Onco logy [facility] [place] [address] [place] [phone] Sunil Bourgeois MD 200 [facility] [place] [address] 4 12:00 PM EDT [facility] [place] [address] Rj Mai MD [address] [place] [address] 4 12:20 PM EDT Office Visit Family [facility] [address] [place] [address] Scott Montoya MD [address] [place] [address] 4 12:30 PM EDT Office Visit Ophthalmology, [facility] [address] [place] [address] Rolan Self, DO [address] [facility] [place] [address] 4 11:15 AM EDT Hospital Encounter ENDO [facility], Endoscopy Room [facility] [address] [place] [phone] Aj Pruett, DO [address] [place] [address] 4 11:15 AM EDT - 4 11:45 AM EDT Surgery ENDO [facility], Endoscopy Room [facility] [address] [place] [phone] Aj Pruett, DO [address] [place] [address] ESOPHAGOGASTRODUODENOSCOPY (EGD), FLEXIBLE, TRANSORAL, DIAGNOSTIC 4 11:00 AM EST Telemedicine Pharmacy, [facility] [address] [place] [address] [place] [facility] [address] [place] [address] 4 1:40 PM EST Office Visit Nephrology, [address] [place] [address] Jonathan Mathew MD [address] [place] [address] 8:00 AM EST Office Visit Family [facility] [address] [place] [address] Scott Montoya MD [address] [place] [address] Scheduled Procedures Name Priority Associated Diagnoses Date/Ti [...] 09/01/2024 09/02/2023, 04/10, 01/21/2016 B-12 09/07/2024 09/08/2023, /0 09/2022, 06/14/2020, Additional history exists GFR 01/27/2025 [...] this encounter Medical Devices Implanted Type Area Manager Business Development Hospice Device Identifier Shelf Expiration Date Model / Serial / Lot Neurostimul Intellis Adaptiv - [id number] - [id number] Implanted:Qty: 1 on 08/22/2022 by Rafia Small MD at OR [facility] N/A: Spine Lumbar [employer] 06/21/2023 [id number] / [id number] / Description:battery Medtronic Lead Kit 60 Cm Implanted:Qty: 1 on 08/22/2022 by Rafia Small MD at OR [facility] N/A: Spine Lumbar 02/01/2026 [id number] / / [id number] Medtronic Lead Kit 60cm Implanted:Qty: 1 on 08/22/2022 by Rafia Small MD at OR [facility] N/A: Spine Lumbar 03/21/2026 [id number] / / [id number] Envelope Tyrx Med Antibacteril - [id number] Implanted:Qty: 1 on 08/22/2022 by Rafia Small MD at OR [facility] N/A: Spine Lumbar [employer] 03/10/2023 [id number] / / [id number] Hemostatic Clip Res 235cm - [id number] Implanted:Qty: 4 on 10/05/2023 by Aj Pruett DO at ENDOSCOPY [facility] : ENDOSCOPY 02/03/2026 [id number] / / Hemostatic Clip Res 235cm - [id number] Implanted:Qty: 1 on 10/05/2023 by Aj Pruett DO at ENDOSCOPY [facility] : ENDOSCOPY 02/02/2026 [id number] / / documented as of this encounter [...] Power of Attor narda? No Care Teams Imaging Scheduler Relationship Specialty Start Date End Date Scott Montoya MD [address] [place] [address] PCP - General Family Medicine 08/03/18 documented as of this encounter
--- OUTSIDE RECORDS SUMMARY | 2024-02-02 08:47 | External Medical Summary | Summary of Care ---
Author Name Unknown Organization [facility] Address [address] [facility] [place] [address] Phone [phone] Care Team Providers Care Junior Systems Engineer Name Role Phone Scott Weldon MD Primary Care Provider + Reason for Visit * Reason Onset Date Comments Appointment 01/27/2024 Encounter Details Date Type Department Care Team (Late st Contact Info) Description 01/27/2024 Telephone Pharmacy, [facility] 132 [facility] [place] [address] Radha Mckeon, [facility] [address] [facility] [place] [address] Appointment Allergies Active Allergy Reactions Criticality Noted Date Comments Naproxen Sodium Bleeding High 11/29/2013 Pollen 12/03/2022 Seasonal Food (See Comments) Anaphylaxis High 04/20/2019 Hot peppers (oils) Kiwi Extract Anaphylaxis High 04/20/2019 documented as of this encounter (statuses as of 01/27/2024) Medications Medication Sig Dispensed Refills Start Date [...] Strip 5 02/17/2017 Active Insulin Infusion Pump (MINIMZebtab 630G INSULIN PUMP) KITIndications:Type 2 diabetes mellitus with hemoglobin A1c goal of less than 8.0% ([facility]) Use as directed. 07/30/2017 Active CPAP every [...] suspected opioid overdose. Seek immediate medical attention. [email or web address]?[email or web address] 1 Each 3 11/27/2022 Active [...] 40 mg Oral HS, Reported on 10/01/2023 hydrOXYzine HCl 25 MG Oral Tablet Take 1 tab during the day every 4-6 hours as needed for anxiety and take 2 tabs at bedtime as needed for anxiety 450 Tablet 1 10/12/2023 Active Furosemide 40 MG Oral Tablet (Lasix) Take [...] before bedtime. 90 Tablet 3 01/25/2024 Active documented as of this encounter (statuses as of 01/27/2024) Active Problems Problem Noted Date Diagnosed Date [...] as of this encounter (statuses as of 01/27/2024) Resolved Problems Problem Noted Date Diagnosed Date [...] Overview: Per Obesity Taxonomy Coronary atherosclerosis of [place] coronary artery 09/15/2008 10/03/2008 Malaise and fatigue [...] as of this encounter (statuses as of 01/27/2024) Immunizations Name Administration Dates Next Due COVID-19 mRNA, LNP-s, No Pre serve, 2-Dose Series ([employer]) 11/08/2020,10/11/2020 HEP A - Hepatitis A (Adult > 18 yrs) 04/11/2011, 09/20/2010 Hepatitis B, 20+ yrs 07/05/2015 Pneumococcal Conjugate Vacci ne, 20-valent (Mcnzden43) 03/13/2023 Pneumococcal Polysaccharide PPV23 (Pneumovax) 02/19/2018,03/09/2007 Seasonal [...] encounter Miscellaneous Notes * Telephone Encounter - Bindu Burkett OSA - 01/27/2024 9:02 AM EDT Declined going to [facility] for same day appt wanted to wait until tomorrow made appt with elisa at 11:40 * Telephone Encounter - Scott Weldon MD - 01/27/2024 8:30 AM EDT See if appts available any office today-if not, urgent care a good option for eval / xray ([facility] urgent care or [facility] as ours is closed this month) * Telephone Encounter - Radha Mckeon RPh - 01/27/2024 8:25 AM EDT Taz, Patient seen in [facility] Pain clinic today. Patient notes a fall last week from a ladder while hanging curtins onto a concrete floor. Notes worsening lower back pain and pain in her tail bone area since then. She is wondering if she should have an xray or other follow up? Thank you, Radha Mckeon, Pharm D, [facility] 01/27/2024, 8:26 AM documented in this encounter Plan of Treatment Upcoming Encounters Date Type Department Care Team (Latest Contact Info) Description 4 11:40 AM EDT Office Visit Family Practice [facility] [address] [place] [address] Elisa Caldera CRNP [address] [place] [address] 4 10:30 AM EDT Office Visit [facility] [address] [place] [address] [place], [facility] [address] [facility] [address] 4 2:15 PM EDT Office Visit Hematology/Onco logy [facility] [address] [place], [place] [phone] Sunil Bourgeois MD 200 [facility] [place] [address] 4 12:20 PM EDT Office Visit Family Practice [facility] [address] [place] [address] Scott Weldon MD [address] [place] [address] 4 12:30 PM EDT Office Visit Ophthalmology, [facility] [address] [place], [place] [address] Rolan Self, DO [address] [place] [address] 4 11:15 AM EDT Hospital Encounter ENDO [facility], Endoscopy Room [facility] [address] [place] [phone] Aj Pruett, DO [address] [place] [address] 4 11:15 AM EDT - 4 11:45 AM EDT Surgery ENDO [facility], Endoscopy Room [facility] [address] [place] [phone] Aj Pruett, DO [address] [place] [address] ESOPHAGOGASTRODUODENOSCOPY (EGD), FLEXIBLE, TRANSORAL, DIAGNOSTIC 4 11:00 AM EST Telemedicine Pharmacy, [facility] [place] [address] [place] [facility] [place] [address] 4 1:40 PM EST Office Visit Nephrology, [facility] [address] [place] [address] Jonathan Mathew MD [facility] [place] [address] 5 8:00 AM EST Office Visit Family Practice [facility] [address] [place] [address] Scott Weldon MD [address] [place] [address] Scheduled Procedures Name Priority Associated Diagnoses Date/Ti [...] 11/07/2019, Additional history exists HbA1c 05/14/2024 11/13/2023, 0210/2023, 02/18/2023, Additional history exists Albumin/Creatinine Ratio 07/23/2024 024, 04/06/2023, 03/11/2022, Additional history exists Mammogram 09/01/2024 09/02/2023, 04/10, 01/21/2016 B-12 09/07/2024 09/08/2023, 09/2022, 06/14/2020, Additional history exists GFR 01/17/2025 01/18/2024, 12/06, 11/13/2023, Additional history exists Pap Smear 09/07/2026 09/08/2023, [...] this encounter Medical Devices Implanted Type Area Juice Standardizer Device Identifier Shelf Expiration Date Model / Serial / Lot Neurostimul Intellis Adaptiv - [id number] - [id number] Implanted:Qty: 1 on 08/22/2022 by Rafia Small MD at OR [facility] N/A: Spine Lumbar [employer] 06/21/2023 [id number] / [id number] / Description:battery Medtronic Lead Kit 60 Cm Implanted:Qty: 1 on 08/22/2022 by Rafia Small MD at OR [facility] N/A: Spine Lumbar 02/01/2026 [id number] / / [id number] Medtronic Lead Kit 60cm Implanted:Qty: 1 on 08/22/2022 by Rafia Small MD at OR [facility] N/A: Spine Lumbar 03/21/2026 [id number] / / [id number] Envelope Tyrx Med Antibacteril - [id number] Implanted:Qty: 1 on 08/22/2022 by Rafia Small MD at OR [facility] N/A: Spine Lumbar [employer] 03/10/2023 [id number] / / [id number] Hemostatic Clip Res 235cm - [id number] Implanted:Qty: 4 on 10/05/2023 by Aj Pruett DO at ENDOSCOPY [facility] [employer] : ENDOSCOPY 02/03/2026 [id number] / / Hemostatic Clip Res 235cm - [id number] Implanted:Qty: 1 on 10/05/2023 by Aj Pruett DO at ENDOSCOPY [facility] [employer] : ENDOSCOPY 02/02/2026 [id number] / / documented as of this encounter [...] Power of Attor narda? No Care Teams Junior Systems Engineer Relationship Specialty Start Date End Date Scott Weldon MD 132 [facility] [place] [address] PCP - General Family Medicine 08/03/18 documented as of this encounter
--- OUTSIDE RECORDS SUMMARY | 2024-02-02 08:47 | External Medical Summary | Summary of Care ---
Author Name Unknown Organization [facility] Address [address] [facility] [place] [address] Phone [phone] Care Team Providers Care Cert Pharmacy Tech Name Role Phone Scott Weldon MD Primary Care Provider + Reason for Visit * Reason Comments Outpatient Testing Encounter Details Date Type Department Care Team (Late st Contact Info) Description 01/28/2024 12:50 PM EDT Laboratory Laboratory, [facility] [address] [facility] [place] [phone] [facility] [address] [facility] [place] [address] Malaise and fatigue; LUQ pain Allergies Active Allergy Reactions Criticality Noted Date [...] Strip 5 02/17/2017 Active Insulin Infusion Pump (MINIMUtiliData 630G INSULIN PUMP) KITIndications:Type 2 diabetes mellitus with hemoglobin A1c goal of less than 8.0% ([facility]) Use as directed. 07/30/2017 Active CPAP every [...] suspected opioid overdose. Seek immediate medical attention. [email or web address]/[email or web address]?v=v26cDa [email or web address] 1 Each 3 11/27/2022 Active [...] mRNA, LNP-s, No Pre serve, 2-Dose Series (Waggl) 11/08/2020,10/11/2020 HEP A - Hepatitis A (Adult > 18 yrs) 04/11/2011, 09/20/2010 Hepatitis B, 20+ yrs 07/05/2015 Pneumococcal Conjugate Vacci ne, 20-valent ([id number]) 03/13/2023 Pneumococcal Polysaccharide PPV23 (Pneumovax) 02/19/2018,03/09/2007 Seasonal [...] 4 10:30 AM EDT [facility] [address] [facility] [address] [facility] [address] [facility], [place] [address] 4 2:15 PM EDT Office Visit Hematology/Onco logy [facility] [address] [place] [phone] Sunil Bourgeois MD [address] [facility] [place] [address] 4 12:00 PM EDT Telemedicine Psychiatry, [facility] [address] [facility] [place] [address] Rj Mai MD [address] [place] [address] 4 12:20 PM EDT Office Visit Family Practice [facility] [address] [facility] [place] [address] Scott Weldon MD [address] [place] [address] 4 12:30 PM EDT Office Visit Ophthalmology, [facility] [address] [facility] [place] [address] Rolan Self, DO [address] [facility] [place] [address] 4 11:15 AM EDT Hospital Encounter ENDO [facility], Endoscopy Room [facility] [address] [place] [phone] Aj Pruett, DO [address] [place] [address] 4 11:15 AM EDT - 4 11:45 AM EDT Surgery ENDO [facility], Endoscopy Room [facility] [address] [place] [address] Aj Pruett DO [address] [place] [address] ESOPHAGOGASTRODUODENOSCOPY (EGD), FLEXIBLE, TRANSORAL, DIAGNOSTIC 4 11:00 AM EST Telemedicine Pharmacy, [facility] [address] [place] [address] [facility] [address] [place] [address] 4 1:40 PM EST Office Visit Nephrology, [facility] [address] [facility] [place] [address] Jonathan Mathew MD [address] [facility] [place] [address] 5 8:00 AM EST Office Visit Family Practice [facility] [address] [place] [address] Scott Weldon MD 132 [facility] [place] [address] Pending Results Name Type Priority Associated Diagnoses Date /Time LIPASE Lab Routine Malaise and fatigue LUQ pain 01/28/2024 12:32 PM EDT CBC WITH WBC DIFFERENTIAL Lab Routine Malaise and fatigue LUQ pain 01/28/2024 12:32 PM EDT COMPREHENSIVE METABOLIC PANEL Lab Routine Malaise and fatigue LUQ pain 01/28/2024 12:32 PM EDT CBC Lab Routine Malaise and fatigue LUQ pain 01/28/2024 12:32 PM EDT DIFFERENTIAL, AUTOMATED Lab Routine Malaise and fatigue LUQ pain 01/28/2024 12:32 PM EDT Scheduled Procedures Name Priority Associated [...] 09/01/2024 09/02/2023, 04/10, 01/21/2016 B-12 09/07/2024 09/08/2023, 0 09/2022, 06/14/2020, Additional history exists GFR 01/17/2025 [...] this encounter Medical Devices Implanted Type Area Bar Machine Operator Device Identifier Shelf Expiration Date Model / Serial / Lot Neurostimul Intellis Adaptiv - [id number] - [id number] Implanted:Qty: 1 on 08/22/2022 by Rafia Small MD at OR [facility] N/A: Spine Lumbar [employer] 06/21/2023 [id number] / [id number] / Description:battery Medtronic Lead Kit 60 Cm Implanted:Qty: 1 on 08/22/2022 by Rafia Small MD at OR [facility] N/A: Spine Lumbar 02/01/2026 [id number] / / [id number] Medtronic Lead Kit 60cm Implanted:Qty: 1 on 08/22/2022 by Rafia Small MD at OR [facility] N/A: Spine Lumbar 03/21/2026 [id number] / / [id number] Envelope Tyrx Med Antibacteril - [id number] Implanted:Qty: 1 on 08/22/2022 by Rafia Small MD at OR [facility] N/A: Spine Lumbar [employer] 03/10/2023 [id number] / / [id number] Hemostatic Clip Res 235cm - [id number] Implanted:Qty: 4 on 10/05/2023 by Aj Pruett DO at ENDOSCOPY [facility] [employer] : ENDOSCOPY 02/03/2026 [id number] / / Hemostatic Clip Res 235cm - [id number] Implanted:Qty: 1 on 10/05/2023 by Aj Pruett DO at ENDOSCOPY [facility] : ENDOSCOPY 02/02/2026 [id number] / / documented as of this encounter Visit Diagnoses Diagnosis Malaise and fatigue Other malaise and fatigue LUQ pain Abdominal pain, left upper quadrant [...] Power of Attor narda? No Care Teams Cert Pharmacy Tech Relationship Specialty Start Date End Date Scott Weldon MD [address] [place] [address] PCP - General Family Medicine 08/03/18 documented as of this encounter
--- OUTSIDE RECORDS SUMMARY | 2024-02-02 08:47 | External Medical Summary | Summary of Care ---
Author Name Unknown Organization [facility] Address [address] [facility] [address] Phone [phone] Care Team Providers Care Customer Sales Service Manager Name Role Phone Scott Weldon MD Primary Care Provider + Reason for Visit * Reason Comments Acute fall off ladder whil e hanging curtins lower back pain Encounter Details Date Type Department Care Team (Late st Contact Info) Description 01/28/2024 11:40 AM EDT Office Visit Family Practice [facility] [address] [facility] [place] [address] Elisa Caldera CRNP [address] [place] [address] Fall, initial encounter*; Acute low back pain due to trauma; Malaise and fatigue; LUQ pain Allergies Active [...] Strip 5 02/17/2017 Active Insulin Infusion Pump (MINIMRACTIV 630G INSULIN PUMP) KITIndications:Type 2 diabetes mellitus with hemoglobin A1c goal of less than 8.0% (HCC) Use as directed. 07/30/2017 Active CPAP every [...] attention. [email or web address]?v=[email or web address] [email or web address] 1 Each 3 11/27/2022 Active [...] Overview: Per Obesity Taxonomy Coronary atherosclerosis of crow coronary artery 09/15/2008 10/03/2008 Malaise and fatigue [...] mRNA, LNP-s, No Pre serve, 2-Dose Series (Usbek & Rica) 11/08/2020,10/11/2020 HEP A - Hepatitis A (Adult > 18 yrs) 04/11/2011, 09/20/2010 Hepatitis B, 20+ yrs 07/05/2015 Pneumococcal Conjugate Vacci ne, 20-valent ([id number]) 03/13/2023 Pneumococcal Polysaccharide PPV23 (Pneumovax) 02/19/2018,03/09/2007 Seasonal [...] No 10/07/2023 Does the household have a [facility] source of income? (Household - for [...] Sign Reading Time Taken Comments Blood Pressure 106/62 01/28/2024 11:42 AM EDT Pulse 79 01/28/2024 11:42 AM EDT Temperature 36.8 C (98.3 F) 01/28/2024 11:42 AM E DT Respiratory Rate - - Oxygen Saturation 95% 01/28/2024 11:42 AM EDT Inhaled Oxygen Concentration - - Weight - - Height - - Body Mass Index - - documented in this encounter Functional Status Functional [...] as of this encounter Progress Notes * Elisa Caldera CRNP - 01/28/2024 12:29 PM EDT Images from the original note were not included. History of Present Illness Carmen Tyson is a 53 year old female that presents for Acute (fall off ladder while hanging curtins lower back pain) HPI Carmen fell off of a ladder while hanging curtains 8 days ago. She is having low back pain and intermittent mild headaches since. She notes she was not feeling well for the week or so prior to the fall -- malaise, LUQ abdominal pain, fevers as high as 101F. She doesn't recall any dizziness or prescynope prior to the fall but she does think she lost consciousness -- "woke up to cat staring at me." There was no one there to witness the fall. She also has a large bruise on R anterior calf. Headaches are mild, intermittent, denies light sensitivity, confusion, unusual balance problems. Denies bowel/bladder dysfunction. Denies dysuria/UTI symptoms. She believes she had pancreatitis which she thinks she's had but has never been confirmed. States that it's hard to tell whether her nausea/vomiting or low back pain is worse than her baseline. She does not like to go to the ER because she is often admitted due to her medical complexity. Physical Exam Vitals: 01/28/24 1142 Temp: 36.8 C (98.3 F) Pulse: 79 SpO2: 95% BP: 106/62 Physical Exam Vitals reviewed. Constitutional: Appearance: Normal appearance. HENT: Head: Normocephalic and atraumatic. Right Ear: Tympanic membrane, ear canal and external ear normal. Left Ear: Tympanic membrane, ear canal and external ear normal. Nose: Nose normal. Mouth/Throat: Mouth: Mucous membranes are moist. Eyes: Extraocular Movements: Extraocular movements intact. Conjunctiva/sclera: Conjunctivae normal. Pupils: Pupils are equal, round, and reactive to light. Cardiovascular: Rate and Rhythm: Normal rate and regular rhythm. Heart sounds: Normal heart sounds. Pulmonary: Effort: Pulmonary effort is normal. Breath sounds: Normal breath sounds. Abdominal: General: There is no distension. Palpations: Abdomen is soft. Tenderness: There is abdominal tenderness (LUQ). Musculoskeletal: Cervical back: Neck supple. Back: Right lower leg: No edema. Left lower leg: No edema. Legs: Lymphadenopathy: Cervical: No cervical adenopathy. Skin: General: Skin is warm and dry. Capillary Refill: Capillary refill takes less than 2 seconds. Neurological: Mental Status: She is alert and oriented to person, place, and time. Sensory: Sensation is intact. Motor: Weakness (RUE and RLE 4/5 strength baseline per patient) present. Coordination: Romberg sign negative. Nlhprz-Qznj-Kajuum Test normal. Gait: Gait abnormal (uses cane at baseline). Psychiatric: Behavior: Behavior normal. Thought Content: Thought content normal. Assessment and Plan Fall, initial encounter Aware to go to ER if symptoms worsen - XR TIB/FIB 2 VIEWS Acute low back pain due to trauma - XR L SPINE AP AND LATERAL Malaise and fatigue - LIPASE; Future - CBC WITH WBC DIFFERENTIAL; Future - COMPREHENSIVE METABOLIC PANEL; Future LUQ pain Declines CT for now as pain is improving - LIPASE; Future - CBC WITH WBC DIFFERENTIAL; Future - COMPREHENSIVE METABOLIC PANEL; Future Wrap-Up Follow Up: Return if symptoms worsen or fail to improve. Time: I spent a total of 20-29 minutes (exact time 20 mins) on the date of service in preparation, delivery, and documentation of the care provided to Carmen Tyson excluding any time spent in the performance of separately billed services. documented in this encounter Nursing Notes * Venecia Chou LPN - 01/28/2024 11:39 AM EDT The patient has been properly identified by confirmation of name and date of . Chief Complaint Patient presents with Acute fall off ladder while hanging curtins lower back pain Fell right on back onto hard floor. X 8 days ago. Really sore in lower back. She did hit the back of her head, believe she lost consciousness. Dose not know how long she was out for. I asked if she went to the Er, she said no " I did not want to stay there". Having on and offheadaches, boggy minded, NO vision changes. N/V (states she always has this). Sore lower back, R irizarry bruising. documented in this encounter Plan of Treatment Upcoming Encounters Date Type Department Care Team (Latest Contact Info) Description 4 10:30 AM EDT Office Visit Pharmacy, [place] [address] [place] [address] [facility] [address] [place] [address] 4 2:15 PM EDT Office Visit Hematology/Onco log[facility] [address] [facility] [place] [phone] Sunil Bourgeois MD [address] [facility] [place] [address] 4 12:00 PM EDT Telemedicine Psychiatry, [facility] [address] [facility] [place] [address] Rj Mai MD [address] [place] [address] 4 12:20 PM EDT Office Visit Family Practice [facility] [address] [place] [address] Scott Weldon MD [address] [place] [address] 4 12:30 PM EDT Office Visit Ophthalmology, [facility] [address] [place] [address] Rolan Self, DO [facility] [place] [address] 4 11:15 AM EDT Hospital Encounter ENDO [facility], Endoscopy Room [facility] [address] [place] [phone] Aj Pruett, DO [address] [place] [address] 4 11:15 AM EDT - 4 11:45 AM EDT Surgery ENDO [facility], Endoscopy Room [facility] [address] [place] [phone] Aj Pruett, DO [address] [place] [address] ESOPHAGOGASTRODUODENOSCOPY (EGD), FLEXIBLE, TRANSORAL, DIAGNOSTIC 4 11:00 AM EST Telemedicine Pharmacy, [facility] [address] [facility] [place] [address] [facility] [address] [place] [address] 4 1:40 PM EST Office Visit Nephrology, [facility] [address] [place], [place] [address] Jonathan Mathew MD [address] [place] [address] 5 8:00 AM EST Office Visit Family Practice [facility] [address] [place] [address] Scott Weldon MD [address] [place] [address] Pending Results Name Type Priority Associated Diagnoses Date/Time LIPASE Lab Routine Malaise and fatigue LUQ pain 01/28/2024 12:32 PM EDT CBC WITH WBC DIFFERENTIAL Lab Routine Malaise and fatigue LUQ pain 01/28/2024 12:32 PM EDT COMPREHENSIVE METABOLIC PANEL Lab Routine Malaise and fatigue LUQ pain 01/28/2024 12:32 PM EDT XR TIB/FIB 2 VIEWS Medical Imaging STAT Fall, initial encounter 01/28/2024 12:26 PM EDT Scheduled Orders Name Type Priority Associated Diagnoses Orde r Schedule LIPASE Lab Routine Malaise and fatigue LUQ pain Expected: 01/28/2024 (Approximate), Expires: 01/27/2025 CBC WITH WBC DIFFERENTIAL Lab Routine Malaise and fatigue LUQ pain Expected: 01/28/2024 (Approximate), Expires: 01/27/2025 COMPREHENSIVE METABOLIC PANEL Lab Routine Malaise and fatigue LUQ pain Expected: 01/28/2024 (Approximate), Expires: 01/27/2025 Scheduled Procedures Name Priority Associated Diagnoses Date/Ti [...] this encounter Medical Devices Implanted Type Area Drier Tender Device Identifier Shelf Expiration Date Model / Serial / Lot Neurostimul Intellis Adaptiv - [id number] - [id number] Implanted:Qty: 1 on 08/22/2022 by Rafia Small MD at OR [facility] N/A: Spine Lumbar [employer] 06/21/2023 [id number] / [id number] / Description:battery Medtronic Lead Kit 60 Cm Implanted:Qty: 1 on 08/22/2022 by Rafia Small MD at OR [facility] N/A: Spine Lumbar 02/01/2026 [id number] / / [id number] Medtronic Lead Kit 60cm Implanted:Qty: 1 on 08/22/2022 by Rafia mSall MD at OR [facility] N/A: Spine Lumbar 03/21/2026 [id number] / / [id number] Envelope Tyrx Med Antibacteril - [id number] Implanted:Qty: 1 on 08/22/2022 by Rafia Small MD at OR [facility] N/A: Spine Lumbar [employer] 03/10/2023 [id number] / / [id number] Hemostatic Clip Res 235cm - [id number] Implanted:Qty: 4 on 10/05/2023 by Aj Pruett DO at ENDOSCOPY [facility] [employer] : ENDOSCOPY 02/03/2026 [id number] / / Hemostatic Clip Res 235cm - [id number] Implanted:Qty: 1 on 10/05/2023 by Aj Pruett DO at ENDOSCOPY [facility] [employer] : ENDOSCOPY 02/02/2026 [id number] / / documented as of this encounter Procedures Procedure Name Priority Date/Time Associated Diagnosis Comments XR L SPINE AP AND LATERAL STAT 01/28/2024 12:26 PM EDT Acute low back pain due to trauma documented in this encounter Results * XR L SPINE AP AND LATERAL (01/28/2024 12:26 PM EDT) Anatomical Region Laterality Modality Vertebra, Lspine Computed Radiog james 01/28/2024 12:5 7 PM EDT Impressions 01/28/2024 12:55 PM EDT IMPRESSION As above. Narrative 01/28/2024 12:55 PM EDT EXAM XR L SPINE AP AND LATERAL-01/28/2024 12:26 pm HISTORY pain and tenderness over R SI joint after fall TECHNIQUE XR L SPINE AP AND LATERAL COMPARISON 09/27/2019 x-ray. 04/25/2022 MRI. FINDINGS Transitional lumbosacral anatomy, with lumbarization of the S1 vertebral body. Rudimentary disc space at S1-S2. This numbering is consistent with prior x- ray and MRI. Recommend close attention to numbering scheme prior to any planned intervention. Alignment is maintained. Discovertebral degeneration, most prominent at L5-S1 where there is mild loss of disc space. No compression fracture. The sacrum is partially obscured by bowel gas. The sacroiliac joints are intact. Neurostimulator device battery pack, with wires coursing superiorly beyond the field of view. Procedure Note Marito Bush MD - 01/28/2024 EXAM XR L SPINE AP AND LATERAL-01/28/2024 12:26 pm HISTORY pain and tenderness over R SI joint after fall TECHNIQUE XR L SPINE AP AND LATERAL COMPARISON 09/27/2019 x-ray. 04/25/2022 MRI. FINDINGS Transitional lumbosacral anatomy, with lumbarization of the S1 vertebralbody. Rudimentary disc space at S1-S2. This numbering is consistent withprior x-ray and MRI. Recommend close attention to numbering scheme priorto any planned intervention. Alignment is maintained. Discovertebral degeneration, most prominent atL5-S1 where there is mild loss of disc space. No compression fracture. The sacrum is partially obscured by bowel gas. The sacroiliac joints areintact. Neurostimulator device battery pack, with wires coursingsuperiorly beyond the field of view. IMPRESSION IMPRESSION As above. Elisa COHEN RADIOLOGY (RAD GEN ERAL) documented in this encounter Visit Diagnoses Diagnosis Fall, initial encounter- Primary Acute low back pain due to trauma Lumbago Malaise and fatigue Other malaise and fatigue [...] Power of Attor narda? No Care Teams Customer Sales Service Manager Relationship Specialty Start Date End Date Scott Weldon MD [address] [place] [address] PCP - General Family Medicine 08/03/18 documented as of this encounter
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
--- OUTSIDE RECORDS SUMMARY | 2024-02-02 08:47 | External Medical Summary ---
Author Name Unknown Address Unknown Organization K[facility] - [address] [facility] [address] [place] [address] Laboratory Report Ordering Provider Test Date Status EAGLESWATHIArturo 01/28/2024 12:32:50 Final Observation Date Value Abnormality Reference (Units ) Status Nucleated erythrocytes/100 leukocytes [Ratio] in Blood by Automated count 01/28/2024 12:32:50 Final Performing Location [facility] 0 - [address] [place] [address]
--- OUTSIDE RECORDS SUMMARY | 2024-02-02 08:47 | External Medical Summary ---
Author Name Unknown Address Unknown Organization [facility]-[address] - [address] [place] [address] Laboratory Report Ordering Provider Test Date Status LINUS GUILLERMO 01/28/2024 12:32:50 Final Observation Date Value Abnormality Reference (Units ) Status WBC, Total 01/28/2024 12:32:50 5.18 4.00-10.8 0 (K/uL) Final RBC 01/28/2024 12:32:50 4.31 3.85-5.15 (M/uL) Final Hemoglobin 01/28/2024 12:32:50 11.8 Below low normal 12 .0-15.3 (g/dL) Final HCT 01/28/2024 12:32:50 37.9 36.0-45.2 (%) Final MCV 01/28/2024 12:32:50 87.9 81.5-97.5 (fL) Final MCH 01/28/2024 12:32:50 27.4 27.0-34.0 (pg) Final MCHC 01/28/2024 12:32:50 31.1 32.0-36.0 (g/dL) Final RDW 01/28/2024 12:32:50 14.1 11.5-15.5 (%) Final Platelets 01/28/2024 12:32:50 76 Below low normal 140 -400 (K/uL) Final MPV 01/28/2024 12:32:50 10.4 6.6-11.1 ( fL) Final [facility] [address] [place] [address]
--- OUTSIDE RECORDS SUMMARY | 2024-02-02 08:47 | External Medical Summary ---
Author Name Unknown Address Unknown Organization [facility] [address] [place] [address] Laboratory Report Ordering Provider Test Date Status LINUS GUILLERMO 01/28/2024 12:32:50 Final Observation Date Value Abnormality Reference (Units ) Status SYNC LEUKOCYTES IN BLOOD BY AUTOMATED COUNT 01/28/2024 12:32:50 5.18 4.00-10.80 (K/uL) Final Segs 01/28/2024 12:32:50 68.5 40.0-75.0 (%) Final Lymphs % 01/28/2024 12:32:50 19.7 18.0-42.0 (%) Final Monos 01/28/2024 12:32:50 8.3 1.0-11.0 (%) Final Eosinophils 01/28/2024 12:32:50 2.9 0.0-6.0 (%) Final Basos 01/28/2024 12:32:50 0.6 0.0-2.0 (%) Final Absolute Segs 01/28/2024 12:32:50 3.55 1.80-7.70 (K/uL) Final Lymphs, absolute 01/28/2024 12:32:50 1.02 1.00-4.80 (K/ul) Final Monos, Abs 01/28/2024 12:32:50 0.43 0.00-1.10 (K/uL) Final Eos, Abs 01/28/2024 12:32:50 0.15 0.00-0.70 (K/uL) Final Basos, Abs 01/28/2024 12:32:50 0.03 0.00-0.20 (K/uL) Final Performing Location [facility] - [address] [place] [address]
--- OUTSIDE RECORDS SUMMARY | 2024-02-02 08:47 | External Medical Summary ---
Author Name Unknown Address Unknown Organization [facility] 57-10 - [address] [place] [address] Laboratory Report Ordering Provider Test Date Status LINUS GUILLERMO 01/28/2024 12:32:50 Final Observation Date Value Abnormality Reference (Units ) Status BUN 01/28/2024 12:32:50 23 Above high normal 6-20 (mg/dL) Final Creatinine 01/28/2024 12:32:50 1.7 Above high normal 0.5-1.0 (mg/dL) Final Glomerular filtration rate/1.73 sq M.predicted [Volume Rate/Area] in Serum, Plasma or Blood by Creatinine-based formula (CKD-EPI) 01/28/2024 12:32:50 37 Below low normal >=60 (mL/min) Final eGFR is calculated based on the CKD-EPI 2020 equation. Sodium 01/28/2024 12:32:50 144 135-146 (m mol/L) Final Potassium 01/28/2024 12:32:50 4.5 3.5-5.1 (m mol/L) Final Cl 01/28/2024 12:32:50 103 98-107 (mm ol/L) Final CO2 01/28/2024 12:32:50 30 22-32 (mmo l/L) Final Anion gap 01/28/2024 12:32:50 11 7-15 (mmol /L) Final Glucose 01/28/2024 12:32:50 162 Above high normal 70 -120 (mg/dL) Final Albumin 01/28/2024 12:32:50 4.1 3.8-5.0 (g /dL) Final AST (Aspartate aminotransferase) 01/28/2024 12:32:50 36 Above high normal 10-35 (U/L) Final Alk Phos 01/28/2024 12:32:50 149 Above high normal 35 -130 (U/L) Final Bilirubin, Total 01/28/2024 12:32:50 0.4 <=1 .2 (mg/dL) Final Calcium 01/28/2024 12:32:50 9.2 8.4-10.2 ( mg/dL) Final Protein 01/28/2024 12:32:50 7.3 6.0-8.3 (g /dL) Final ALT (Alanine aminotransferase) 01/28/2024 12:32:50 11 10-35 (U/L) Jaswinder burns Performing Location [facility] 57-[address] 0 - [address] [facility] [place] [address]
--- OUTSIDE RECORDS SUMMARY | 2024-02-02 08:47 | External Medical Summary ---
Author Name Unknown Address Unknown Organization K01:[facility] [place] - [address] [place] [address] Laboratory Report Ordering Provider Test Date Status LINUS GUILLERMO 01/28/2024 12:32:50 Final Observation Date Value Abnormality Reference (Units ) Status Lipase 01/28/2024 12:32:50 74 Above high normal 13 -60 (U/L) Final Performing Location [facility] [place] - [address] [place] [address]
--- OUTSIDE RECORDS SUMMARY | 2024-02-02 08:48 | External Medical Summary | Summary of Care ---
Author Name Unknown Organization [facility] Address [address] [facility] [place] [address] Phone [phone] Care Team Providers Care Stock Repairer Name Role Phone Scott Weldon MD Primary Care Provider + Reason for Visit * Reason Comments Dosage Adjustment Via Phone (anticoag Cl inic) Pain Encounter Details Date Type Department Care Team (Late st Contact Info) Description 01/27/2024 8:00 AM EDT Telemedicine Pharmacy, [facility] [address] [facility] [place] [address] [facility] [address] [facility] [place] [address] Chronic pain syndrome* Allergies Active Allergy Reactions [...] Strip 5 02/17/2017 Active Insulin Infusion Pump (MINIMWander 630G INSULIN PUMP) KITIndications:Type 2 diabetes mellitus with hemoglobin A1c goal of less than 8.0% ([facility]) Use as directed. 07/30/2017 Active CPAP every [...] suspected opioid overdose. Seek immediate medical attention. [email or web address]://[email or web address] [employer] .com/watch?v=v26cDa o4AcI 1 Each 3 11/27/2022 Active [...] mRNA, LNP-s, No Pre serve, 2-Dose Series (SelectMinds) 11/08/2020,10/11/2020 HEP A - Hepatitis A (Adult > 18 yrs) 04/11/2011, 09/20/2010 Hepatitis B, 20+ yrs 07/05/2015 Pneumococcal Conjugate Vacci ne, 20-valent ([id number]) 03/13/2023 Pneumococcal Polysaccharide PPV23 (Pneumovax) 02/19/2018,03/09/2007 Seasonal [...] as of this encounter Progress Notes * Linda, Radha Dimple, [facility] - 01/27/2024 7:59 AM EDT Images from the original note were not included. After connecting to the patient via telephone, the patient was identified by name and date of . Patient was then informed that this was a telephone call only visit. The patient agreed to participate. Visit Disposition: Routine follow-up Total call duration was 16 minutes. Medication Therapy Disease Management Clinic - Chronic Pain Management Progress Note 01/27/2024 Carmen Tyson, identified by name and date of , is a 53 year old female being seen for chronic pain management/education. Patient presents to pain MTM clinic for return visit. Referring Physician: Dr. Weldon Medication Agreement: on file Patient's Pharmacy: [facility] [place] CHIEF COMPLAINT: RUQ Pain and back pain (radiating from shoulder blade down) Interval History: Notes had a fall last Thursday onto concrete floor Notes she continues with a lower back pain, helped by stimulator but still helping with pain Notes still has abdominal discomfort Concerned for displacement of leads with spinal cord stimulator Notes lower back pain feels like it is in her lower tailbone Pain described as: aching and dull, radiating, [...] risk) Daily MME: ~ 30 PDMP Reviewed (01/27/24): apprpriate Urine Toxicology Screen: 03/11/22-appropriate Pill Count: N/a Functional Goal: QOL Current Pain Level (01/27/24): lower back issue, recent fall Pain Level (11/05/23): stable Pain Level (08/06/23): worsening lower back pain [...] Pain Medications: Baclofen 10 mg BID prn- states taking BID-TID PRN and has been helpful Lyrica 100 mg TID Butrans 5 mcg/hr every week *lunesta, trazodone, escitalopram, hydroxyzine Creatinine Clearance: Serum creatinine: 1.5 mg/dL (H) 01/18/24 1105 Estimated creatinine clearance: 52.3 mL/min (A) Creatinine Results: Recent Labs Units 01/18/24 1105 12/16/23 1110 11/13/23 1007 CREATININE - [facility] mg/dL 1.5* 1.7* 1.4* Hepatic Function (ALT): Recent Labs Units 08/20/23 1127 12/03/22 1543 03/11/22 1329 ALT - [facility] U/L 14 25 23 Comprehensive Metabolic Panel Results: Results for orders placed or performed in visit on 08/20/23 COMPREHENSIVE METABOLIC PANEL Result Value Ref Range BUN 23 (H) 6 - 20 mg/dL Creatinine 1.5 (H) 0.5 - 1.0 mg/dL Estimated Glomerular Filtration Rate 43 (L) >=60 mL/min Sodium 140 135 - 146 mmol/L Potassium 4.6 3.5 - 5.1 mmol/L Chloride 100 98 - 107 mmol/L CO2 30 22 - 32 mmol/L Anion Gap 10 7 - 15 mmol/L Glucose 74 70 - 120 mg/dL Albumin 4.0 3.8 - 5.0 g/dL AST 40 (H) 10 - 35 U/L Alkaline Phosphatase 136 (H) 35 - 130 U/L Bilirubin, Total 0.5 <=1.2 mg/dL Calcium 9.2 8.4 - 10.2 mg/dL Protein 7.3 6.0 - 8.3 g/dL ALT 14 10 - 35 U/L ASSESSMENT: Patient aware MTM is a clinical pharmacist visit, with focus on medication options for current diagnoses referred by Primary Care Provider for review and optimization. Focus of this visit is Medication Optimization. Current concerns: continued abdominal pain and lower back pain Adherence: Reviewed current regimen, patient is adherent to regimen. Treatment options: continue current medications, follow up with pcp regarding lower back pain and fall Treatment concerns: concern for falling and possible new back issue given lower back pain Education provided: discussed following up with provider for lower back issue I have evaluated the patient for the [...] have been exhibited. PLAN: Continue current pain medication Discuss back issue/fall with pcp Medication changes: no change Pain Medications: Baclofen 10 mg BID prn- states taking BID-TID PRN and has been helpful Lyrica 100 mg TID Butrans 5 mcg/hr every week *lunesta, trazodone, escitalopram, hydroxyzine Patient verbalized understanding of the plan. Contact clinic with any issues. I spent a total of 20-29 minutes (exact time 27 mins) on the date of service in preparation, delivery, and documentation of the care provided to Carmen Tyson excluding any time spent in the performance of separately billed services or time spent by another provider/QHP. FOLLOW UP: Return to clinic in 12 weeks 04/28/2024 Radha Mckeon [facility] Clinical Pharmacist - [facility] Med[facility] Therapy Management [facility] 01/27/2024, 7:59 AM documented in this encounter Plan of Treatment Upcoming Encounters Date Type Department Care Team (Latest Contact Info) Description 4 9:00 AM EDT Telemedicine Psychiatry, [address] [place] [address] Rj Mai MD [address] [place] [address] Arrived 4 10:30 AM EDT Office Visit Pharmacy, [address] [address] 4 2:15 PM EDT Office Visit Hematology/Onco logy [facility] 200 [facility] [phone] Sunil Bourgeois MD 200 [facility] [place] [address] 4 12:20 PM EDT Office Visit Family Practice [facility] [address] [place] [address] Scott Weldon MD [address] [place] [address] 4 12:30 PM EDT Office Visit Ophthalmology, [facility] [address] [place] [address] Rolan Self, DO [address] [place] [address] 4 11:15 AM EDT Hospital Encounter ENDO [facility], Endoscopy Room [facility] [address] [place], [place] [phone] Aj Pruett, DO [address] [place], [place] [address] 4 11:15 AM EDT - 4 11:45 AM EDT Surgery ENDO [facility], Endoscopy Room [facility] [address] [place], [place] [phone] Aj Pruett, DO [address] [place] [address] ESOPHAGOGASTRODUODENOSCOPY (EGD), FLEXIBLE, TRANSORAL, DIAGNOSTIC 4 11:00 AM EST Telemedicine Pharmacy, [facility] [address] [place] [address] [facility] [address] [place] [address] 4 1:40 PM EST Office Visit Nephrology, [facility] [address] [place] [address] Jonathan Mathew MD [address] [place] [address] 5 8:00 AM EST Office Visit Family Practice [facility] [address] [place] [address] Scott Weldon MD [address] [place] [address] Scheduled Procedures Name Priority Associated Diagnoses Date/Ti [...] 03/11/2022, Additional history exists Mammogram 09/01/2024 09/02/2023, 3 , 01/21/2016 B-12 09/07/2024 09/08/2023, 09/2022, 06/14/2020, Additional history exists GFR 01/17/2025 01/18/2024, 12/06, 11/13/2023, Additional history exists Pap Smear 09/07/2026 09/08/2023, 110 10/2014, 04/12/2015, Additional history exists DTaP,Tdap,and Td Vaccines (3 - Td or Tdap) 08/05/2028 08/05/2018, 05/15/2008 Cervical Cancer Screening 09/07/2028 HPV/Co-Test 09/07/2028 09/08/2023 Colonoscopy 10/04/2028 10/05/2023, 2 02/2024, 06/27/2015, Additional history exists Colorectal Cancer Screening [...] this encounter Medical Devices Implanted Type Area Medical Record Clerk Device Identifier Shelf Expiration Date Model / Serial / Lot Neurostimul Intellis Adaptiv - [id number] - [id number] Implanted:Qty: 1 on 08/22/2022 by Rafia Small MD at OR [facility] N/A: Spine Lumbar [employer] 06/21/2023 [id number] / [id number] / Description:battery Medtronic Lead Kit 60 Cm Implanted:Qty: 1 on 08/22/2022 by Rafia Small MD at OR [facility] N/A: Spine Lumbar 02/01/2026 [id number] / / [id number] Medtronic Lead Kit 60cm Implanted:Qty: 1 on 08/22/2022 by Rafia Small MD at OR [facility] N/A: Spine Lumbar 03/21/2026 [id number] / / [id number] Envelope Tyrx Med Antibacteril - [id number] Implanted:Qty: 1 on 08/22/2022 by Rafia Small MD at OR [facility] N/A: Spine Lumbar [employer] 03/10/2023 [id number] / / [id number] Hemostatic Clip Res 235cm - [id number] Implanted:Qty: 4 on 10/05/2023 by Aj Pruett DO at ENDOSCOPY [facility] : ENDOSCOPY 02/03/2026 [id number] / / Hemostatic Clip Res 235cm - [id number] Implanted:Qty: 1 on 10/05/2023 by Aj Pruett DO at ENDOSCOPY [facility] : ENDOSCOPY 02/02/2026 [id number] / / documented as of this encounter Visit Diagnoses Diagnosis Chronic pain syndrome- Primary Portal hypertensive gastropathy (HCC) Other specified disorder [...] Power of Attor narda? No Care Teams Stock Repairer Relationship Specialty Start Date End Date Scott Weldon MD [address] [place] [address] PCP - General Family Medicine 08/03/18 documented as of this encounter
--- OUTSIDE RECORDS SUMMARY | 2024-02-02 08:48 | External Medical Summary ---
Author Name Unknown Address Unknown Organization K01:[facility] [place] [facility] [address] [place] [address] Laboratory Report Ordering Provider Test Date Status JAN RIBEIRO 01/18/2024 11:05:18 Final Observation Date Value Abnormality Reference (Units ) Status BUN 01/18/2024 11:05:18 18 6-20 (mg/dL) Final Creatinine 01/18/2024 11:05:18 1.5 Above high normal 0.5-1.0 (mg/dL) Final Glomerular filtration rate/1.73 sq M.predicted [Volume Rate/Area] in Serum, Plasma or Blood by Creatinine-based formula (CKD-EPI) 01/18/2024 11:05:18 42 Below low normal >=60 (mL/min) Final eGFR is calculated based on the CKD-EPI 2020 equation. Sodium 01/18/2024 11:05:18 142 135-146 (m mol/L) Final Potassium 01/18/2024 11:05:18 4.1 3.5-5.1 (m mol/L) Final Cl 01/18/2024 11:05:18 100 98-107 (mm ol/L) Final CO2 01/18/2024 11:05:18 30 22-32 (mmo l/L) Final Anion gap 01/18/2024 11:05:18 12 7-15 (mmol /L) Final Glucose 01/18/2024 11:05:18 125 Above high normal 70 -120 (mg/dL) Final Calcium 01/18/2024 11:05:18 9.0 8.4-10.2 ( mg/dL) Final Performing Location [facility] [place] [facility] [address] [place] [address]
--- OUTSIDE RECORDS SUMMARY | 2024-02-02 08:48 | External Medical Summary ---
Author Name Unknown Address Unknown Organization K01:[facility] [place] [address] [place] [address] Laboratory Report Ordering Provider Test Date Status LUIS ANTONIO LEIVA 01/18/2024 11:05:18 Final Observation Date Value Abnormality Reference (Units ) Status Ferritin 01/18/2024 11:05:18 34 13-150 (ng /mL) Final Postmenopausal women have hi gher ferritin levels than pre-menopausal women. The above reference interval is based on pre-menopausal women. Performing Location LABORATORY C - [address] [place] [address]
--- OUTSIDE RECORDS SUMMARY | 2024-02-02 08:48 | External Medical Summary ---
Author Name Unknown Address Unknown Organization K01[place] [facility] [place] [address] [place] [address] Laboratory Report Ordering Provider Test Date Status LUIS ANTONIO LEIVA 01/18/2024 11:05:18 Final Observation Date Value Abnormality Reference (Units ) Status WBC, Total 01/18/2024 11:05:18 5.54 4.00-10.80 (K/uL) Final RBC 01/18/2024 11:05:18 4.18 3.85-5.15 (M/uL) Final Hemoglobin 01/18/2024 11:05:18 11.5 Below low normal 12.0-15.3 (g/dL) Final HCT 01/18/2024 11:05:18 37.0 36.0-45.2 (%) Final MCV 01/18/2024 11:05:18 88.5 81.5-97.5 (fL) Final MCH 01/18/2024 11:05:18 27.5 27.0-34.0 (pg) Final MCHC 01/18/2024 11:05:18 31.1 32.0-36.0 (g/dL) Final RDW 01/18/2024 11:05:18 14.1 11.5-15.5 (%) Final Platelets 01/18/2024 11:05:18 79 Below low normal 140-400 (K/uL) Final MPV 01/18/2024 11:05:18 10.8 6.6-11.1 (fL) Final Nucleated erythrocytes/100 leukocytes [Ratio] in Blood by Automated count 01/18/2024 11:05:18 0 <=0 (/100 WBCs) Final Performing Location [place] [facility] [place] [address] [place] [address]
--- OUTSIDE RECORDS SUMMARY | 2024-02-02 08:48 | External Medical Summary ---
Author Name Unknown Address Unknown Organization K01[place] [place] [address] [facility] [place] [address] Laboratory Report Ordering Provider Test Date Status LUIS ANTONIO LEIVA 01/18/2024 11:05:18 Final Observation Date Value Abnormality Reference (Units ) Status SYNC LEUKOCYTES IN BLOOD BY AUTOMATED COUNT 01/18/2024 11:05:18 5.54 4.00-10.80 (K/uL) Final Segs 01/18/2024 11:05:18 63.8 40.0-75.0 (%) Final Lymphs % 01/18/2024 11:05:18 21.7 18.0-42.0 (%) Final Monos 01/18/2024 11:05:18 10.3 1.0-11.0 (%) Final Eosinophils 01/18/2024 11:05:18 2.7 0.0-6.0 (%) Final Basos 01/18/2024 11:05:18 1.1 0.0-2.0 (%) Final Immature Granulocyte, Percent 01/18/2024 11:05:18 0.4 0.0-2.0 (%) Final Absolute Segs 01/18/2024 11:05:18 3.54 1.80-7.70 (K/uL) Final Lymphs, absolute 01/18/2024 11:05:18 1.20 1.00-4.80 (K/ul) Final Monos, Abs 01/18/2024 11:05:18 0.57 0.00-1.10 (K/uL) Final Eos, Abs 01/18/2024 11:05:18 0.15 0.00-0.70 (K/uL) Final Basos, Abs 01/18/2024 11:05:18 0.06 0.00-0.20 (K/uL) Final Immature Granulocytes, Number 01/18/2024 11:05:18 0.02 0.00-0.20 (K/uL) Final Performing Location [facility] [place] [facility] [place] [address]
--- OUTSIDE RECORDS SUMMARY | 2024-02-02 08:48 | External Medical Summary | Summary of Care ---
Author Name Unknown Organization [facility] Address [address] [facility] [place] [address] Phone [phone] Care Team Providers Care Instrument Sterilizer Name Role Phone Scott Montoya MD Primary Care Provider + Reason for Visit * Reason Onset Date Comments Medication Refill 01/25/2024 Encounter Details Date Type Department Care Team (Late st Contact Info) Description 01/25/2024 Refill Family Practice [facility] [address] [place] [address] Scott Montoya MD [address] [place] [address] Back spasm Allergies Active Allergy Reactions Criticality Noted Date Comments Naproxen Sodium Bleeding High 11/29/2013 Pollen 12/03/2022 Seasonal Food (See Comments) Anaphylaxis High 04/20/2019 Hot peppers (oils) Kiwi Extract Anaphylaxis High 04/20/2019 documented as of this encounter (statuses as of 01/25/2024) Medications Medication Sig Dispensed Refills Start Date [...] Strip 5 7 Active Insulin Infusion Pump (MINIMSocial Rewards 630G INSULIN PUMP) KITIndications:Type 2 diabetes mellitus with hemoglobin A1c goal of less than 8.0% ([facility]) Use as directed. 8 Active CPAP every [...] suspected opioid overdose. Seek immediate medical attention. https://www.Cerora.com/watch?v=v26c Lyv5GmH 1 Each 3 3 Active Atenolol 100 [...] goal of less than 8.0% ([facility]),DM type 2, not at goal ([facility]) INJECT UP TO 200 UNITS SUBCUTANEOSULY ONCE [...] as needed for anxiety 450 Tablet 1 4 Active Furosemide 40 MG Oral Tablet (Lasix) [...] at bedtime. 90 Tablet 1 4 Active Eszopiclone 2 MG Oral Tablet (Lunesta) Take 1 Tablet by mouth at bedtime. 30 Tablet 1 4 Active Empagliflozin 10 MG [...] 90 Tablet 1 4 Active Potassium Chloride Alura ER 20 MEQ Oral Tablet Extended Release [...] before bedtime. 90 Tablet 3 4 Active Baclofen 10 MG Oral Tablet (Lioresal)Indicatio ns:Back spasm Take 1 Tablet by mouth in the morning and 1 Tablet at noon and 1 Tablet before bedtime. 90 Tablet 3 4 01/25/20 24 Discontinu ed(Refill) documented as of this encounter (statuses as of 01/25/2024) Active Problems Problem Noted Date Diagnosed Date [...] as of this encounter (statuses as of 01/25/2024) Resolved Problems Problem Noted Date Diagnosed Date [...] Vertigo 02/19/2016 03/14/2023 Breast cancer screening 11/30/2015 05/06/2018 Vaginitis 05/18/2015 05/21/2016 Vaginitis 10/18/2014 01/24/2015 Vaginitis [...] Overview: Per Obesity Taxonomy Coronary atherosclerosis of [place] coronary artery 09/15/2008 10/03/2008 Malaise and fatigue [...] as of this encounter (statuses as of 01/25/2024) Immunizations Name Administration Dates Next Due COVID-19 mRNA, LNP-s, No Pre serve, 2-Dose Series (Pfizer) 11/08/2020,10/11/2020 HEP A - Hepatitis A (Adult > 18 yrs) 04/11/2011, 09/20/2010 Hepatitis B, 20+ yrs 07/05/2015 Pneumococcal Conjugate Vacci ne, 20-valent ([id number]) 03/13/2023 Pneumococcal Polysaccharide PPV23 (Pneumovax) 02/19/2018,03/09/2007 Seasonal [...] 10/07/2023 Does the household have a re lar source of income? (Household - for ages [...] Telephone Encounter - Scott Montoya MD - 01/25/2024 2:56 PM EDTSigned Prescriptions: Disp Refills Baclofen 10 MG Oral Tablet (Lioresal) 90 Tab*3 Sig: Take 1 Tablet by mouth in the morning and 1 Tablet at noon and 1 Tablet before bedtime. Authorizing Provider: SCOTT MONTOYA * Telephone Encounter - Venecia Chou LPN - 01/25/2024 12:28 PM EDTPending Prescriptions: Disp Refills Baclofen 10 MG Oral Tablet (Lioresal) 90 Tab*3 Sig: Take 1 Tablet by mouth in the morning and 1 Tablet at noon and 1 Tablet before bedtime. * Telephone Encounter - Halina Ulloa OSA - 01/25/2024 12:19 PM EDT Did you pend patient's preferred pharmacy and medication before forwarding?yes Pharmacy: [id number] [address] [facility] Pending Prescriptions: Disp Refills Baclofen 10 MG Oral Tablet (Lioresal) 90 Tab*3 Sig: Take 1 Tablet by mouth in the morning and 1 Tablet at noon and 1 Tablet before bedtime. Last Visit: 11/25/2023 (in office), 09/08/2022 (telemedicine) Next Visit: 03/16/2024 If no future appointments scheduled, and last appointment is greater than a year ago, please schedule patient for a follow-up appointment Last date the medication was ordered: 11.05.23 Is this request for a controlled substance?No [...] Care Team (Latest Contact Info) Description 4 8:00 AM EDT Telemedicine Pharmacy, [address] [place] [address] [facility] 132 [place] [address] 4 9:00 AM EDT Telemedicine Psychiatry, [facility] [address] [place] [address] Rj Mai MD [address] [place] [address] 4 10:30 AM EDT Office Visit Pharmacy, [address] [address] 4 2:15 PM EDT [facility] [address] [place] [phone] Sunil Bourgeois MD 200 [facility] [place] [address] 4 12:20 PM EDT Office Visit [facility] [address] [place] [address] Scott Montoya MD [address] [place] [address] 4 12:30 PM EDT Office Visit Ophthalmology, [facility] [address] [place] [address] Rolan Self, DO [address] [place] [address] 4 11:15 AM EDT Hospital Encounter [facility]O [facility], Endoscopy Room [facility] [address] [place] [phone] Aj Pruett, DO [address] [place] [address] 4 11:15 AM EDT - 4 11:45 AM EDT Surgery ENDO [facility], Endoscopy Room [facility] [address] [place] [phone] Aj Pruett, DO [address] [place] [address] ESOPHAGOGASTRODUODENOSCOPY (EGD), FLEXIBLE, TRANSORAL, DIAGNOSTIC 4 1:40 PM EST Office Visit Nephrology, [facility] [address] [place] [address] Jonathan Mathew MD [address] [place] [address] 5 8:00 AM EST Office Visit [facility] [address] [place] [address] Scott Montoya MD [address] [place] [address] Scheduled Procedures Name Priority Associated Diagnoses Date/Ti [...] this encounter Medical Devices Implanted Type Area Candy Vendor Device Identifier Shelf Expiration Date Model / Serial / Lot Neurostimul Intellis Adaptiv - [id number] - [id number] Implanted:Qty: 1 on 08/22/2022 by Rafia Small MD at OR [facility] N/A: Spine Lumbar [employer] 06/21/2023 [id number] / [id number] / Description:battery Medtronic Lead Kit 60 Cm Implanted:Qty: 1 on 08/22/2022 by Rafia Small MD at OR [facility] N/A: Spine Lumbar 02/01/2026 [id number] / / [id number] Medtronic Lead Kit 60cm Implanted:Qty: 1 on 08/22/2022 by Rafia Small MD at OR [facility] N/A: Spine Lumbar 03/21/2026 [id number] / / [id number] Envelope Tyrx Med Antibacteril - [id number] Implanted:Qty: 1 on 08/22/2022 by Rafia Small MD at OR [facility] N/A: Spine Lumbar [employer] 03/10/2023 [id number] / / [id number] Hemostatic Clip Res 235cm - [id number] Implanted:Qty: 4 on 10/05/2023 by Aj Pruett DO at ENDOSCOPY [facility] : ENDOSCOPY 02/03/2026 [id number] / / Hemostatic Clip Res 235cm - [id number] Implanted:Qty: 1 on 10/05/2023 by Aj Pruett DO at ENDOSCOPY [facility] : ENDOSCOPY 02/02/2026 [id number] / / documented as of this encounter Visit Diagnoses Diagnosis Back spasm Other symptoms referable to back Portal hypertensive gastropathy (HCC) Other specified disorder [...] Power of Attor narda? No Care Teams Instrument Sterilizer Relationship Specialty Start Date End Date Scott Montoya MD [address] [place] [address] PCP - General Family Medicine 08/03/18 documented as of this encounter
--- OUTSIDE RECORDS SUMMARY | 2024-02-02 08:48 | External Medical Summary | Summary of Care ---
Author Name Unknown Organization [facility] Address 100 [facility] [place] [address] Phone [phone] Care Team Providers Care Head Silverman Name Role Phone Scott Weldon MD Primary Care Provider + Reason for Visit * Reason Comments Outpatient Testing Encounter Details Date Type Department Care Team (Late st Contact Info) Description 01/18/2024 11:00 AM EDT Laboratory Laboratory, [place] [address] [place] [address] [place], [facility] [address] [place] [address] Iron deficiency anemia, unspecified iron deficiency anemia type; HTN, goal below 130/80 Allergies Active Allergy Reactions Criticality Noted Date Comments Naproxen Sodium Bleeding High 11/29/2013 Pollen 12/03/2022 Seasonal Food (See Comments) Anaphylaxis High 04/20/2019 Hot peppers (oils) Kiwi Extract Anaphylaxis High 04/20/2019 documented as of this encounter (statuses as of 01/18/2024) Medications Medication Sig Dispensed Refills Start Date [...] Strip 5 02/17/2017 Active Insulin Infusion Pump (MINIMHeySpace 630G INSULIN PUMP) KITIndications:Type 2 diabetes mellitus [...] needed for nausea. 30 Tablet 10/21/2023 Active Baclofen 10 MG Oral Tablet (Lioresal)Indicatio ns:Back spasm Take 1 Tablet by mouth in the morning and 1 Tablet at noon and 1 Tablet before bedtime. 90 Tablet 3 11/05/2023 Active Meclizine HCl 25 MG Oral Tablet [...] once a week. 4 Patch 01/11/2024 Active documented as of this encounter (statuses as of 01/18/2024) Active Problems Problem Noted Date Diagnosed Date [...] as of this encounter (statuses as of 01/18/2024) Resolved Problems Problem Noted Date Diagnosed Date [...] Obesity Taxonomy Coronary atherosclerosis of [place] coronary artery 09/15/2008 10/03/2008 Malaise and fatigue [...] as of this encounter (statuses as of 01/18/2024) Immunizations Name Administration Dates Next Due COVID-19 mRNA, LNP-s, No Pre serve, 2-Dose Series (BondandDeni) 11/08/2020,10/11/2020 HEP A - Hepatitis A (Adult > 18 yrs) 04/11/2011, 09/20/2010 Hepatitis B, 20+ yrs 07/05/2015 Pneumococcal Conjugate Vacci ne, 20-valent ([id number]) 03/13/2023 Pneumococcal Polysaccharide PPV23 (Pneumovax) 02/19/2018,03/09/2007 Seasonal [...] Description 4 8:00 AM EDT Tele[address], [address] [place] [address] 4 9:00 AM EDT Telemedicine Psychiatry, [facility] 200 [facility] [place] [address] Rj Mai MD [address] [place] [address] 4 10:30 AM EDT Office Visit Pharmacy, [address] [address] 4 2:15 PM EDT Office Visit Hematology/Onco logy [facility] [address] [facility] [place] [phone] Sunil Bourgeois MD 200 [facility] [place] [address] 4 12:20 PM EDT Office Visit Family Practice [facility] 132 [facility] [place] [address] Scott Weldon MD 132 [facility] [place] [address] 4 12:30 PM EDT Office Visit Ophthalmology, [facility] 132 [facility] [place] [address] Rolan Self, DO 21 [facility] [place] [id number] 4 11:15 AM EDT Hospital Encounter ENDO [facility], Endoscopy Room [facility] [address] [place], [place] [phone] Aj Pruett, DO [address] [place] [address] 4 11:15 AM EDT - 4 11:45 AM EDT Surgery ENDO [facility], Endoscopy Room [facility] [address] [place] [phone] Aj Pruett, DO [address] [place] [address] ESOPHAGOGASTRODUODENOSCOPY (EGD), FLEXIBLE, TRANSORAL, DIAGNOSTIC 4 1:40 PM EST Office Visit Nephrology, [facility] [address] [facility] [place] [address] Jonathan Mathew MD 200 [facility] [place] [address] 5 8:00 AM EST Office Visit [facility] [address] [place] [address] Scott Weldon MD [address] [place] [address] Pending Results Name Type Priority Associated Diagnoses Date /Time CBC WITH WBC DIFFERENTIAL Lab STAT Iron deficiency anemia, unspecified iron deficiency anemia type 01/18/2024 11:05 AM EDT FERRITIN Lab STAT Iron deficiency anemia, unspecified iron deficiency anemia type 01/18/2024 11:05 AM EDT IRON SCREEN, INCLUDING TIBC Lab STAT Iron deficiency anemia, unspecified iron deficiency anemia type 01/18/2024 11:05 AM EDT BASIC METABOLIC PANEL Lab Routine HTN, goal below 130/80 01/18/2024 11:05 AM EDT CBC Lab STAT Iron deficiency anemia, unspecified iron deficiency anemia type 01/18/2024 11:05 AM EDT DIFFERENTIAL, AUTOMATED Lab STAT Iron deficiency anemia, unspecified iron deficiency anemia type 01/18/2024 11:05 AM EDT Scheduled Procedures Name Priority Associated Diagnoses [...] 09/02/2023, 3 , 01/21/2016 B-12 09/07/2024 09/08/2023, 0 09/2022, 06/14/2020, Additional history exists GFR 12/15/2024 12/16/2023, 060 12/2023, 10/22/2023, Additional history exists Pap Smear 09/07/2026 09/08/2023, [...] this encounter Medical Devices Implanted Type Area Operator Ground Based Air Defence Device Identifier Shelf Expiration Date Model / Serial / Lot Neurostimul Intellis Adaptiv - [id number] - [id number] Implanted:Qty: 1 on 08/22/2022 by Rafia Small MD at OR [facility] N/A: Spine Lumbar [employer] 06/21/2023 [id number] / [id number] / Description:battery Medtronic Lead Kit 60 Cm Implanted:Qty: 1 on 08/22/2022 by Rafia Small MD at OR [facility] N/A: Spine Lumbar 02/01/2026 [id number] / / [id number] Medtronic Lead Kit 60cm Implanted:Qty: 1 on 08/22/2022 by Rafia Small MD at OR [facility] N/A: Spine Lumbar 03/21/2026 [id number] / / [id number] Envelope Tyrx Med Antibacteril - [id number] Implanted:Qty: 1 on 08/22/2022 by Rafia Small MD at OR [facility] N/A: Spine Lumbar [employer] 03/10/2023 [id number] / / [id number] Hemostatic Clip Res 235cm - [id number] Implanted:Qty: 4 on 10/05/2023 by Aj Pruett, at ENDOSCOPY [facility] : ENDOSCOPY 02/03/2026 [id number] / / Hemostatic Clip Res 235cm - [id number] Implanted:Qty: 1 on 10/05/2023 by Aj Pruett, DO at ENDOSCOPY [facility] : ENDOSCOPY 02/02/2026 [id number] / / documented as of this encounter Visit Diagnoses Diagnosis Iron deficiency anemia, unspecified iron deficiency anemia type HTN, goal below 130/80 Unspecified essential hypertension Portal hypertensive gastropathy (HCC) Other specified disorder [...] Power of Attor narda? No Care Teams Head Silverman Relationship Specialty Start Date End Date Scott Weldon MD [address] [place] [address] PCP - General Family Medicine 08/03/18 documented as of this encounter
--- OUTSIDE RECORDS SUMMARY | 2024-02-02 08:48 | External Medical Summary ---
Author Name Unknown Address Unknown Organization K01:[facility] - [address] [place] [address] Laboratory Report Ordering Provider Test Date Status LUIS ANTONIO LEIVA 01/18/2024 11:05:18 Final Observation Date Value Abnormality Reference (Units ) Status Iron 01/18/2024 11:05:18 50 33-151 (ug/dL) Final Iron-binding capacity 01/18/2024 11:05:18 358 250-425 (ug/dL) Final Transferrin Sat % 01/18/2024 11:05:18 14 Below low normal 15-55 (%) Final Performing Location [facility] - [address] [place] [address]
--- OUTSIDE RECORDS SUMMARY | 2024-02-02 08:48 | External Medical Summary | Summary of Care ---
Author Name Unknown Organization [facility] Address 100 [facility] [place] [address] Phone [phone] Care Team Providers Care Toll Transmission Worker Name Role Phone Scott Weldon MD Primary Care Provider + Reason for Visit * Reason Onset Date Comments Test Results 01/19/2024 Encounter Details Date Type Department Care Team (Late st Contact Info) Description 01/19/2024 Telephone Hematology/Oncology [facility] 200 [facility] [place] [phone] Sunil Bourgeois MD 200 [place] [address] Test Results Allergies Active Allergy Reactions Criticality Noted Date Comments Naproxen Sodium Bleeding High 11/29/2013 Pollen 12/03/2022 Seasonal Food (See Comments) Anaphylaxis High 04/20/2019 Hot peppers (oils) Kiwi Extract Anaphylaxis High 04/20/2019 documented as of this encounter (statuses as of 01/19/2024) Medications Medication Sig Dispensed Refills Start Date [...] Strip 5 02/17/2017 Active Insulin Infusion Pump (MINIMTalasim 630G INSULIN PUMP) KITIndications:Type 2 diabetes mellitus with hemoglobin A1c goal of less than 8.0% ([facility]) Use as directed. 07/30/2017 Active [...] suspected opioid overdose. Seek immediate medical attention. [email or web address] 1 Each 3 11/27/2022 Active [...] as of this encounter (statuses as of 01/19/2024) Active Problems Problem Noted Date Diagnosed Date [...] as of this encounter (statuses as of 01/19/2024) Resolved Problems Problem Noted Date Diagnosed Date [...] Overview: Per Obesity Taxonomy Coronary atherosclerosis of [place] coronary artery 09/15/2008 10/03/2008 Malaise and fatigue [...] as of this encounter (statuses as of 01/19/2024) Immunizations Name Administration Dates Next Due COVID-19 mRNA, LNP-s, No Pre serve, 2-Dose Series (Acronis) 11/08/2020,10/11/2020 HEP A - Hepatitis A (Adult > 18 yrs) 04/11/2011, 09/20/2010 Hepatitis B, 20+ yrs 07/05/2015 Pneumococcal Conjugate Vacci ne, 20-valent ([id number]) 03/13/2023 Pneumococcal Polysaccharide PPV23 (Pneumovax) 02/19/2018,03/09/2007 Seasonal [...] encounter Miscellaneous Notes * Telephone Encounter - Jaja Murray LPN - 01/19/2024 12:24 PM EDT ----- Message from Sunil Bourgeois MD sent at 01/19/2024 8:09 AM EDT ----- Blood workup done on 01/18/2024: -hemoglobin level 11.5. MCV 88. Platelet count 985[address]. - Ferritin --> 34 -Serum iron: 50, TIBC 358, iron saturation 14%. Earlier she received intravenous iron in the form of Venofer x4 between 08/18/2022 - 09/29/2022. No need for IV iron therapy. Mild thrombocytopenia which is expected with the portal hypertension and splenomegaly. She comes for the port flushed every 6 weekly Will repeat CBCD Ferritin, iron profile every 6 weekly when she comes for the port flush documented in this encounter Plan of Treatment Upcoming Encounters Date Type Department Care Team (Latest Contact Info) Description 4 8:00 AM EDT Telemedicine Pharmacy, [facility] [address] [place] [address] [facility] 132 [place] [address] 4 9:00 AM EDT Telemedicine Psychiatry, [facility] 200 [facility] [place] [address] Rj Mai MD [address] [place] [address] 4 10:30 AM EDT Office Visit Pharmacy, [address] [address] [place], [place] [address] [place] [address] 4 2:15 PM EDT Office Visit Hematology/Onco logy [facility] [address] [place] [phone] Sunil Bourgeois MD [address] [place], [place] [address] 4 12:20 PM EDT Office Visit Family Practice [facility] [address] [place], [place] [address] Scott Weldon MD [address] [place] [address] 4 12:30 PM EDT Office Visit Ophthalmology, [facility] [address] [place], [place] [address] Rolan Self, DO [address] [place] [address] 4 11:15 AM EDT Hospital Encounter [facility], Endoscopy Room [facility] [address] [place], [place] [phone] Aj Pruett, DO [address] [place] [address] 4 11:15 AM EDT - 4 11:45 AM EDT Surgery ENDO [facility], Endoscopy Room [facility] [address] [place] [address] Aj Pruett, DO [address] [place] [address] ESOPHAGOGASTRODUODENOSCOPY (EGD), FLEXIBLE, TRANSORAL, DIAGNOSTIC 4 1:40 PM EST Office Visit Nephrology, [facility] [address] [place] [address] Jonathan Mathew MD [address] [place], [place] [address] 8:00 AM EST Office Visit Family Practice [facility] [address] [place] [address] Scott Weldon MD [address] [place] [address] Scheduled Procedures Name Priority Associated Diagnoses Date/Ti [...] this encounter Medical Devices Implanted Type Area Golf Ball Trimmer Device Identifier Shelf Expiration Date Model / Serial / Lot Neurostimul Intellis Adaptiv - [id number] - [id number] Implanted:Qty: 1 on 08/22/2022 by Rafia Small MD at OR [facility] N/A: Spine Lumbar [employer] 06/21/2023 [id number] / [id number] / Description:battery Medtronic Lead Kit 60 Cm Implanted:Qty: 1 on 08/22/2022 by Rafia Small MD at OR [facility] N/A: Spine Lumbar 02/01/2026 [id number] / / [id number] Medtronic Lead Kit 60cm Implanted:Qty: 1 on 08/22/2022 by Rafia Small MD at OR [facility] N/A: Spine Lumbar 03/21/2026 [id number] / / [id number] Envelope Tyrx Med Antibacteril - [id number] Implanted:Qty: 1 on 08/22/2022 by Rafia Small MD at OR [facility] N/A: Spine Lumbar [employer] 03/10/2023 [id number] / / [id number] Hemostatic Clip Res 235cm - [id number] Implanted:Qty: 4 on 10/05/2023 by Aj Pruett, DO at ENDOSCOPY [facility] : ENDOSCOPY 02/03/2026 [id number] / / Hemostatic Clip Res 235cm - [id number] Implanted:Qty: 1 on 10/05/2023 by Aj Pruett, DO at ENDOSCOPY [facility] : ENDOSCOPY 02/02/2026 [id number] / / documented as of this encounter [...] Power of Attor narda? No Care Teams Toll Transmission Worker Relationship Specialty Start Date End Date Scott Weldon MD 132 [facility] [place] [address] PCP - General Family Medicine 08/03/18 documented as of this encounter
--- OUTSIDE RECORDS SUMMARY | 2024-02-02 08:49 | External Medical Summary | Summary of Care ---
Author Name Unknown Organization [facility] Address 100 [facility] [place] [address] Phone [phone] Care Team Providers Care Hospital Fellow Name Role Phone Scott Weldon MD Primary Care Provider + Reason for Visit * Reason Comments eRx-Medication Refill Encounter Details Date Type Department Care Team (Late st Contact Info) Description 12/31/[address] [facility] 132 [facility] [place] [address] Scott Weldon MD 132 [facility] [place] [address] Type 2 diabetes mellitus with hemoglobin A1c goal of less than 8.0% ([facility]) Allergies Active Allergy Reactions Criticality Noted Date Comments Naproxen Sodium Bleeding High 11/29/2013 Pollen 12/03/2022 Seasonal Food (See Comments) Anaphylaxis High 04/20/2019 Hot peppers (oils) Kiwi Extract Anaphylaxis High 04/20/2019 documented as of this encounter (statuses as of 12/31/2023) Medications Medication Sig Dispensed Refills Start Date End Date Status ONETOUCH ULTRASOFT LANCETS MISCIndications:DM type 2, not at goal ([facility]) check FS 6 times daily [...] Strip 5 02/17/2017 Active Insulin Infusion Pump (MINIMiCreate 630G INSULIN PUMP) KITIndications:Type 2 diabetes mellitus [...] 40 mg Oral HS, Reported on 10/01/2023 Albuterol Sulfate HFA 108 (90 Base) MCG/ACT Inhalation Aerosol Solution INHALE 2 PUFFS BY MOUTH EVERY 6 HOURS NEEDED FOR SHORTNESS OF BREATH 18 g 2 09/16/2023 Active hydrOXYzine HCl 25 MG Oral Tablet [...] at bedtime. 30 Tablet 1 11/30/2023 Active Buprenorphine 5 MCG/HR Transdermal Patch Weekly (Butrans)Indication s:Controlled substance agreement signed,Chronic bilateral low back pain with sciatica, sciatica laterality unspecified,Chronic pain syndrome Place 1 Patch topically on the skin once a week. 4 Patch 12/15/2023 Active Empagliflozin 10 MG Oral Tablet (Jardiance)Indicati [...] the morning. 90 Tablet 1 12/31/2023 Active documented as of this encounter (statuses as of 12/31/2023) Active Problems Problem Noted Date Diagnosed Date [...] as of this encounter (statuses as of 12/31/2023) Resolved Problems Problem Noted Date Diagnosed Date [...] as of this encounter (statuses as of 12/31/2023) Immunizations Name Administration Dates Next Due COVID-19 mRNA, LNP-s, No Pre serve, 2-Dose Series (Noovo) 11/08/2020,10/11/2020 HEP A - Hepatitis A (Adult > 18 yrs) 04/11/2011, 09/20/2010 Hepatitis B, 20+ yrs 07/05/2015 Pneumococcal Conjugate Vacci ne, 20-valent (Bavfesx19) 03/13/2023 Pneumococcal Polysaccharide PPV23 (Pneumovax) 02/19/2018,03/09/2007 Seasonal [...] encounter Miscellaneous Notes * Telephone Encounter - Lainey Gates [facility] - 12/31/2023 12:45 PM EDTRefused Prescriptions: Disp Refills metFORMIN HCl 1000 MG Oral Tablet (Glucoph*180 Ta*1 Sig: TAKE 1 TABLET BY MOUTH 2 TIMES A DAY WITH MORNING AND EVENING MEALSRefused By: LAINEY GATESReason for Refusal: Dose needs clarificationReason for Refusal Comment: current dose sent 12/17/23 to [facility] documented in this encounter Plan of Treatment Upcoming Encounters Date Type Department Care Team (Latest Contact Info) Description 4 9:00 AM EDT Telemedicine Psychiatry, [address] [place] [address] Rj Mai MD [address] [place] [address] 4 10:00 AM EDT Telemedicine Pharmacy, [address] [address] [facility] 132 [place] [address] 4 8:00 AM EDT Telemedicine Gastroenterolog y, [facility] [address] [place], [place] [phone] Charlee Fields MD [address] [place] [address] 4 10:30 AM EDT Office Visit Pharmacy, [address] [address] [facility] [address] [facility] [place] [place] [address] 4 2:15 PM EDT Office Visit Hematology/Onco logy [facility] [address] [place] [phone] Sunil Bourgeois MD 200 [place] [address] 4 12:20 PM EDT Office Visit Family Practice [facility] [address] [place] [address] Scott Weldon MD [address] [place] [address] 4 12:30 PM EDT Office Visit Ophthalmology, [facility] [address] [place], [place] [address] Rolan Self, DO [address] [place] [address] 4 11:15 AM EDT Hospital Encounter ENDO [facility], Endoscopy Room [facility] [address] [place] [phone] Aj Pruett, DO [address] [place], [place] [address] 4 11:15 AM EDT - 4 11:45 AM EDT Surgery ENDO [facility], Endoscopy Room [facility] [address] [place] [phone] Aj Pruett, DO [address] [place] [address] ESOPHAGOGASTRODUODENOSCOPY (EGD), FLEXIBLE, TRANSORAL, DIAGNOSTIC 4 1:40 PM EST Office Visit Nephrology, [facility] [address] [place] [address] Jonathan Mathew MD 200 [facility] [place] [address] 5 8:00 AM EST Office Visit [facility] [address] [facility] [place] [address] Scott Weldon MD [address] [place] [address] Scheduled Procedures Name Priority Associated Diagnoses Date/Ti [...] 07/09, 02/18/2023, Additional history exists Albumin/Creatinine Ratio 07/23/20242 024, 04/06/2023, 03/11/2022, Additional history exists Mammogram 09/01/2024 09/02/2023, 04/10, 01/21/2016 B-12 09/07/2024 09/08/2023, 09/2022, 06/14/2020, Additional history exists GFR 12/15/2024 12/16/2023, 12/2023, 10/22/2023, Additional history exists Pap Smear [...] this encounter Medical Devices Implanted Type Area Bi Analyst Device Identifier Shelf Expiration Date Model / Serial / Lot Neurostimul Intellis Adaptiv - [id number] - [id number] Implanted:Qty: 1 on 08/22/2022 by Rafia Small MD at OR [facility] N/A: Spine Lumbar [employer] 06/21/2023 [id number] / [id number] / Description:battery Medtronic Lead Kit 60 Cm Implanted:Qty: 1 on 08/22/2022 by Rafia Small MD at OR [facility] N/A: Spine Lumbar 02/01/2026 [id number] / / [id number] Medtronic Lead Kit 60cm Implanted:Qty: 1 on 08/22/2022 by Rafia Small MD at OR [facility] N/A: Spine Lumbar 03/21/2026 [id number] / / [id number] Envelope Tyrx Med Antibacteril - [id number] Implanted:Qty: 1 on 08/22/2022 by Rafia Small MD at OR [facility] N/A: Spine Lumbar [employer] 03/10/2023 [id number] / / [id number] Hemostatic Clip Res 235cm - [id number] Implanted:Qty: 4 on 10/05/2023 by Aj Pruett DO at ENDOSCOPY [facility] : ENDOSCOPY 02/03/2026 [id number] / / Hemostatic Clip Res 235cm - [id number] Implanted:Qty: 1 on 10/05/2023 by Aj Pruett DO at ENDOSCOPY [facility] : ENDOSCOPY 02/02/2026 [id number] / / documented as of this encounter Visit Diagnoses Diagnosis Type 2 diabetes mellitus with hemoglobin A1c goal of less than 8.0% (HCC) Portal hypertensive gastropathy (HCC) Other specified disorder [...] Power of Attor narda? No Care Teams Hospital Fellow Relationship Specialty Start Date End Date Scott Weldon MD 132 [place] [address] PCP - General Family Medicine 08/03/18 documented as of this encounter
--- OUTSIDE RECORDS SUMMARY | 2024-02-02 08:49 | External Medical Summary | Summary of Care ---
Author Name Unknown Organization [facility] Address 100 [facility] [place] [address] Phone [phone] Care Team Providers Care Body Specialist Name Role Phone Scott Weldon MD Primary Care Provider + Encounter Details Date Type Department Care Team (Late st Contact Info) Description 01/02/2024 Orders Only PATIENT PORTAL DO NOT DELETE THIS DEPT USED BY [place] FRIEND [id number] Allergies Active Allergy Reactions Criticality Noted Date Comments Naproxen Sodium Bleeding High 11/29/2013 Pollen 12/03/2022 Seasonal Food (See Comments) Anaphylaxis High 04/20/2019 Hot peppers (oils) Kiwi Extract Anaphylaxis High 04/20/2019 documented as of this encounter (statuses as of 01/02/2024) Medications Medication Sig Dispensed Refills Start Date [...] Strip 5 02/17/2017 Active Insulin Infusion Pump (MINIMMalauzai Software 630G INSULIN PUMP) KITIndications:Type 2 diabetes mellitus with hemoglobin A1c goal of less than 8.0% ([facility]) Use as directed. 07/30/2017 Active CPAP every [...] suspected opioid overdose. Seek immediate medical attention. https://[email or web address] .com/watch?v=v26cDa [email or web address] 1 Each 3 11/27/2022 Active [...] BEHAVIORAL HEALTH),DM type 2, not at goal (HCC) INJECT [...] as of this encounter (statuses as of 01/02/2024) Active Problems Problem Noted Date Diagnosed Date [...] as of this encounter (statuses as of 01/02/2024) Resolved Problems Problem Noted Date Diagnosed Date [...] 36.56 08/01/10 08/01/2010 01/23/2012 Acute conjunctivitis 04/30/2010 03/14/2 013 Abdominal pain, right upper quadrant 04/10/2010 [...] Overview: Per Obesity Taxonomy Coronary atherosclerosis of [place] coronary artery 09/15/2008 10/03/2008 Malaise and fatigue [...] as of this encounter (statuses as of 01/02/2024) Immunizations Name Administration Dates Next Due COVID-19 mRNA, LNP-s, No Pre serve, 2-Dose Series (Turbogen) 11/08/2020,10/11/2020 HEP A - Hepatitis A (Adult > 18 yrs) 04/11/2011, 09/20/2010 Hepatitis B, 20+ yrs 07/05/2015 Pneumococcal Conjugate Vacci ne, 20-valent ([id number]) 03/13/2023 Pneumococcal Polysaccharide PPV23 (Pneumovax) 02/19/2018,03/09/2007 Seasonal [...] 18 years and over) Not on file 4 Are you (or your family) ruben eless [...] Description 4 9:00 AM EDT Telemedicine Psychiat[facility], [facility] 200 [facility] [address] Rj Mai MD [address] [place] [address] 4 10:00 AM EDT Telemedicine Pharmacy, [facility] 132 [place] [address] [facility] 132 [place] [address] 4 8:00 AM EDT Telemedicine Gastroenterolog y, [place] [id number] [place] [address] Charlee Fields MD [address] [place] [address] 4 10:30 AM EDT Office Visit Pharmacy, [address] [address] 4 2:15 PM EDT Office Visit Hematology/Onco logy [facility] 200 [facility] [place] [phone] Sunil Bourgeois MD 200 [facility] [place] [address] 4 12:20 PM EDT Office Visit Family Practice [facility] [address] Scott Weldon MD 132 [facility] [place] [address] 4 12:30 PM EDT Office Visit Ophthalmology, [facility] 132 [facility] [address] Rolan Self, DO [address] [place] [address] 4 11:15 AM EDT Hospital Encounter ENDO OSS, Endoscopy Room [facility] [address] [place], [place] [phone] Aj Pruett, DO [address] [place], [place] [address] 4 11:15 AM EDT - 4 11:45 AM EDT Surgery ENDO [facility], Endoscopy Room [facility] [address] [place] [phone] Aj Pruett, DO [address] [place], [place] [address] ESOPHAGOGASTRODUODENOSCOPY (EGD), FLEXIBLE, TRANSORAL, DIAGNOSTIC 4 1:40 PM EST Office Visit Nephrology, [facility] 200 [facility] [place] [address] Jonathan Mathew MD 200 [facility] [place] [address] 5 8:00 AM EST Office Visit [facility] [address] [place] [address] Scott Weldon MD [address] [place] [address] Scheduled Procedures Name Priority Associated Diagnoses Date/Ti [...] 09/01/2024 09/02/2023, 04/10, 01/21/2016 B-12 09/07/2024 09/08/2023, 010 09/2022, 06/14/2020, Additional history exists GFR 12/15/2024 12/16/2023, 06/0 12/2023, 10/22/2023, Additional history exists Pap Smear [...] this encounter Medical Devices Implanted Type Area Chili Pepper Grinder Device Identifier Shelf Expiration Date Model / Serial / Lot Neurostimul Intellis Adaptiv - [id number] - [id number] Implanted:Qty: 1 on 08/22/2022 by Rafia Small MD at OR [facility] N/A: Spine Lumbar [employer] 06/21/2023 [id number] / [id number] / Description:battery Medtronic Lead Kit 60 Cm Implanted:Qty: 1 on 08/22/2022 by Rafia Small MD at OR [facility] N/A: Spine Lumbar 02/01/2026 [id number] / / [id number] Medtronic Lead Kit 60cm Implanted:Qty: 1 on 08/22/2022 by Rafia Small MD at OR [facility] N/A: Spine Lumbar 03/21/2026 [id number] / / [id number] Envelope Tyrx Med Antibacteril - [id number] Implanted:Qty: 1 on 08/22/2022 by Rafia Small MD at OR [facility] N/A: Spine Lumbar [employer] 03/10/2023 [id number] / / [id number] Hemostatic Clip Res 235cm - [id number] Implanted:Qty: 4 on 10/05/2023 by Aj Pruett DO at ENDOSCOPY [facility] [employer] : ENDOSCOPY 02/03/2026 [id number] / / Hemostatic Clip Res 235cm - [id number] Implanted:Qty: 1 on 10/05/2023 by Aj Pruett DO at ENDOSCOPY [facility] [employer] : ENDOSCOPY 02/02/2026 [id number] / / documented as of this encounter [...] Power of Attor narda? No Care Teams Body Specialist Relationship Specialty Start Date End Date Scott Weldon MD [address] [place] [address] PCP - General Family Medicine 08/03/18 documented as of this encounter
--- OUTSIDE RECORDS SUMMARY | 2024-02-02 08:49 | External Medical Summary | Summary of Care ---
Author Name Unknown Organization [facility] Address 100 [facility] [place] [address] Phone [phone] Care Team Providers Care Crop Pest Control Specialist Name Role Phone Scott Montoya MD Primary Care Provider + Reason for Visit * Reason Comments eRx-Medication Refill Encounter Details Date Type Department Care Team (Late st Contact Info) Description 01/07/2024 Refill Family Practice [facility] 132 [facility] [place] [address] Scott Montoya MD 132 [facility] [place] [address] Allergies Active Allergy Reactions Criticality Noted Date Comments Naproxen Sodium Bleeding High 11/29/2013 Pollen 12/03/2022 Seasonal Food (See Comments) Anaphylaxis High 04/20/2019 Hot peppers (oils) Kiwi Extract Anaphylaxis High 04/20/2019 documented as of this encounter (statuses as of 01/07/2024) Medications Medication Sig Dispensed Refills Start Date [...] 5 02/18/20 17 Active Insulin Infusion Pump (MINIMEdventory 630G INSULIN PUMP) KITIndications:Typ e 2 diabetes mellitus with hemoglobin A1c goal of less than 8.0% ([facility]) Use as directed. 07/30/19 18 Active CPAP [...] suspected opioid overdose. Seek immediate medical attention. https://www.[email or web address]/watch?v=v26c [email or web address] 1 Each 3 11/28/19 23 Active Atenolol [...] A1c goal of less than 8.0% ([facility]),DM type 2, not at [...] for anxiety 450 Tablet 1 10/12/19 24 Active Furosemide 40 MG Oral Tablet (Lasix) [...] for nausea. 30 Tablet 10/21/19 24 Active Baclofen 10 MG Oral Tablet (Lioresal)Indicati ons:Back spasm Take 1 Tablet by mouth in the morning and 1 Tablet at noon and 1 Tablet before bedtime. 90 Tablet 3 11/05/19 24 Active Meclizine HCl 25 MG Oral [...] bedtime. 30 Tablet 1 11/30/19 24 Active Buprenorphine 5 MCG/HR Transdermal Patch Weekly (Butrans)Indicatio ns:Controlled substance agreement signed,Chronic bilateral low back pain with sciatica, sciatica laterality unspecified,Chroni c pain syndrome Place 1 Patch topically on the skin once a week. 4 Patch 12/15/19 24 Active Empagliflozin 10 MG Oral Tablet [...] BREATH 18 g 5 01/07/20 24 Active Albuterol Sulfate HFA 108 (90 Base) MCG/ACT Inhalation Aerosol Solution INHALE 2 PUFFS BY MOUTH EVERY 6 HOURS NEEDED FOR SHORTNESS OF BREATH 18 g 2 09/16/19 24 024 Discontinued documented as of this encounter (statuses as of 01/07/2024) Active Problems Problem Noted Date Diagnosed Date [...] Family friend-Tony. Son Ricky-fall. Also son Hieu. Tesha--2019 melanoma. . 12/24 EGD mild gastritis, krishna [...] as of this encounter (statuses as of 01/07/2024) Resolved Problems Problem Noted Date Diagnosed Date [...] Overview: Per Obesity Taxonomy Coronary atherosclerosis of [place] coronary artery 09/15/2008 10/03/2008 Malaise and fatigue [...] as of this encounter (statuses as of 01/07/2024) Immunizations Name Administration Dates Next Due COVID-19 mRNA, LNP-s, No Pre serve, 2-Dose Series (Pfizer) 11/08/2020,10/11/2020 HEP A - Hepatitis A (Adult > 18 yrs) 04/11/2011, 09/20/2010 Hepatitis B, 20+ yrs 07/05/2015 Pneumococcal Conjugate Vacci ne, 20-valent (Byucutw49) 03/13/2023 Pneumococcal Polysaccharide PPV23 (Pneumovax) 02/19/2018,03/09/2007 Seasonal [...] No 10/07/2023 Does the household have a [facility] source of income? (Household - for [...] encounter Miscellaneous Notes * Telephone Encounter - Tesha Hendrickson [facility] - 01/07/2024 9:33 AM EDTSigned Prescriptions: Disp Refills Albuterol Sulfate HFA 108 (90 Base) MCG/AC*18 g 5 Sig: INHALE 2 PUFFS BY MOUTH EVERY 6 HOURS NEEDED FOR SHORTNESS OF BREATHAuthorizing Provider: SCOTT MONTOYA User: TESHA HENDRICKSON Electronically signed by Tesha Hendrickson [facility] at 01/07/2024 9:33 AM EDT documented in this encounter Plan of Treatment Upcoming Encounters Date Type Department Care Team (Latest Contact Info) Description 4 9:00 AM EDT Telemedicine Psychiatry, [address] [address] Rj Mai MD [address] [place] [address] 4 10:00 AM EDT Telemedicine Pharmacy, [facility] 132 [place] [address] [address] 4 10:30 AM EDT Office Visit Pharmacy, [address] [address] 4 2:15 PM EDT Office Visit Hematology/Onco logy [place] [address] [place], [place] [phone] Sunil Bourgeois MD [address] [place] [address] 4 12:20 PM EDT Office Visit Family Practice [facility] [address] [place] [address] Scott Montoya MD [address] [place] [address] 4 12:30 PM EDT Office Visit Ophthalmology, [facility] [address] [place] [address] Rolan Self, DO [address] [place] [address] 4 11:15 AM EDT Hospital Encounter ENDO [facility], Endoscopy Room [facility] [address] [place] [phone] Aj Pruett, DO [address] [place] [address] 4 11:15 AM EDT - 4 11:45 AM EDT Surgery ENDO [facility], Endoscopy Room [facility] [address] [place] [address] Aj Pruett, DO [address] [place] [address] ESOPHAGOGASTRODUODENOSCOPY (EGD), FLEXIBLE, TRANSORAL, DIAGNOSTIC 4 1:40 PM EST Office Visit Nephrology, [place] [address] [place] [address] Jonathan Mathew MD [address] [place] [address] 8:00 AM EST Office Visit Family [facility] [address] [place] [address] Scott Montoya MD [address] [place] [address] Scheduled Procedures Name Priority Associated Diagnoses Date/Ti [...] /0 09/2022, 06/14/2020, Additional history exists GFR 12/15/2024 12/16/2023, 06/0 12/2023, 10/22/2023, Additional history exists Pap Smear 09/07/2026 09/08/2023, 0 10/2014, 04/12/2015, Additional history exists DTaP,Tdap,and Td [...] this encounter Medical Devices Implanted Type Area Exhibition Organiser Device Identifier Shelf Expiration Date Model / Serial / Lot Neurostimul Intellis Adaptiv - [id number] - [id number] Implanted:Qty: 1 on 08/22/2022 by Rafia Small MD at OR [facility] N/A: Spine Lumbar [employer] 06/21/2023 [id number] / [id number] / Description:battery Medtronic Lead Kit 60 Cm Implanted:Qty: 1 on 08/22/2022 by Rafia Small MD at OR [facility] N/A: Spine Lumbar 02/01/2026 [id number] / / [id number] Medtronic Lead Kit 60cm Implanted:Qty: 1 on 08/22/2022 by Rafia Small MD at OR [facility] N/A: Spine Lumbar 03/21/2026 [id number] / / [id number] Envelope Tyrx Med Antibacteril - [id number] Implanted:Qty: 1 on 08/22/2022 by Rafia Small MD at OR [facility] N/A: Spine Lumbar [employer] 03/10/2023 [id number] / / [id number] Hemostatic Clip Res 235cm - [id number] Implanted:Qty: 4 on 10/05/2023 by Aj Pruett, DO at ENDOSCOPY [facility] : ENDOSCOPY 02/03/2026 [id number] / / Hemostatic Clip Res 235cm - [id number] Implanted:Qty: 1 on 10/05/2023 by Aj Pruett, DO at ENDOSCOPY [facility] : ENDOSCOPY 02/02/2026 [id number] / / documented as of this encounter [...] Power of Attor narda? No Care Teams Crop Pest Control Specialist Relationship Specialty Start Date End Date Scott Montoya MD 132 [facility] [place] [address] PCP - General Family Medicine 08/03/18 documented as of this encounter
--- OUTSIDE RECORDS SUMMARY | 2024-02-02 08:49 | External Medical Summary | Summary of Care ---
Author Name Unknown Organization [facility] Address 100 [address] [facility] [place] [address] Phone [phone] Care Team Providers Care Airplane And Engine Inspector Name Role Phone Scott Weldon MD Primary Care Provider + Reason for Referral * Medication Prior Authorization - Closed Specialty Diagnoses / Procedures Referred By Dory payan Referred To Contact Diagnoses Controlled substance agreement signed Chronic bilateral low back pain with sciatica, sciatica laterality unspecified Chronic pain syndrome Vivian Campo CRNP [address] [place] [address] Referral ID Status Reason Start Date Expiration Date Visits Re quested Visits Authorized [id number] Closed 999 999 Reason for Visit * Reason Onset Date Comments Medication Refill 01/09/2024 Encounter Details Date Type Department Care Team (Late st Contact Info) Description 01/09/2024 Refill Family Practice [facility] [address] [place] [address] Scott Weldon MD [address] [place] [address] Controlled substance agreement signed; Chronic bilateral low back pain with sciatica, sciatica laterality unspecified; Chronic pain syndrome Allergies Active Allergy Reactions Criticality Noted Date Comments Naproxen Sodium Bleeding High 11/29/2013 Pollen 12/03/2022 Seasonal Food (See Comments) Anaphylaxis High 04/20/2019 Hot peppers (oils) Kiwi Extract Anaphylaxis High 04/20/2019 documented as of this encounter (statuses as of 01/11/2024) Medications Medication Sig Dispensed Refills Start Date [...] A1c goal of less than 8.0% ([facility]) Use as directed. 8 Active CPAP every [...] overdose. Seek immediate medical attention. https://www.youtub [email or web address]/watch?v=v26c Yeg7PiC 1 Each 3 3 Active Atenolol 100 [...] A1c goal of less than 8.0% ([facility]),DM type 2, not at goal ([facility]) INJECT UP TO 200 UNITS SUBCUTANEOSULY [...] needed for nausea. 30 Tablet 4 Active Baclofen 10 MG Oral Tablet (Lioresal)Indicatio ns:Back spasm Take 1 Tablet by mouth in the morning and 1 Tablet at noon and 1 Tablet before bedtime. 90 Tablet 3 4 Active Meclizine HCl 25 MG Oral [...] once a week. 4 Patch 4 Active Buprenorphine 5 MCG/HR Transdermal Patch Weekly (Butrans)Indication s:Controlled substance agreement signed,Chronic bilateral low back pain with sciatica, sciatica laterality unspecified,Chronic pain syndrome Place 1 Patch topically on the skin once a week. 4 Patch 4 01/09/20 24 Discontinu ed(Refill) documented as of this encounter (statuses as of 01/11/2024) Active Problems Problem Noted Date Diagnosed Date [...] as of this encounter (statuses as of 01/11/2024) Resolved Problems Problem Noted Date Diagnosed Date [...] Overview: Per Obesity Taxonomy Coronary atherosclerosis of [place] coronary artery 09/15/2008 10/03/2008 Malaise and fatigue [...] as of this encounter (statuses as of 01/11/2024) Immunizations Name Administration Dates Next Due COVID-19 mRNA, LNP-s, No Pre serve, 2-Dose Series (iMove) 11/08/2020,10/11/2020 HEP A - Hepatitis A (Adult > 18 yrs) 04/11/2011, 09/20/2010 Hepatitis B, 20+ yrs 07/05/2015 Pneumococcal Conjugate Vacci ne, 20-valent ([id number]) 03/13/2023 Pneumococcal Polysaccharide PPV23 (Pneumovax) 02/19/2018,03/09/2007 Seasonal [...] encounter Miscellaneous Notes * Telephone Encounter - Vivian Campo CRNP - 01/11/2024 11:02 AM EDTSigned Prescriptions: Disp Refills Buprenorphine 5 MCG/HR Transdermal Patch W*4 Patch0 Sig: Place 1 Patch topically on the skin once a week. Authorizing Provider: VIVIAN CAMPO * Telephone Encounter - Vivian Campo CRNP - 01/11/2024 11:[address] Weldon today I have reviewed the patients controlled substance dispensing history in the Prescription Drug Monitoring Program in compliance with the [facility] regulations before prescribing a controlled substance. Last Tox Screen Results: Results for orders placed or performed [...] results can be found in Results Review. * Telephone Encounter - Eulalia Narayanan RP - 01/11/2024 9:38 AM EDT Pending Prescriptions: Disp Refills Buprenorphine 5 MCG/HR Transdermal Patch W*4 Patch0 Sig: Place 1 Patch topically on the skin once a week. * Telephone Encounter - Eulalia Narayanan RP - 01/11/2024 9:37 AM EDT I have reviewed the patients controlled substance dispensing history in the Prescription Drug Monitoring Program in compliance with the [facility] regulations before prescribing a controlled substance. PDMP checked on 01/11/2024. Pending Prescriptions: Disp Refills Buprenorphine 5 MCG/HR Transdermal Patch *4 Patch0 Sig: Place 1 Patch topically on the skin once a week. Last Visit: 11/25/2023 (in office), 09/08/2022 (telemedicine) Next Visit: 03/16/2024 Date medication was last filled: 12/16/23 Date medication is due for refill: 01/12/24 Pharmacy: [id number] [address] [facility] Is this request for a controlled substance? [...] Clinical Pharmacist Central[facility] Pharmacy Services ([facility]) [phone] / [phone] 01/11/2024, 9:37 AM documented in this encounter Plan of Treatment Upcoming Encounters Date Type Department Care Team (Latest Contact Info) Description 4 11:00 AM EDT Laboratory Laboratory, [place] [address] [place] [address] [facility] [address] [place] [address] 4 9:00 AM EDT Telemedicine Psychiatry, [facility] [address] [place] [address] Rj Mai MD [address] [place] [address] 4 10:00 AM EDT Telemedicine Pharmacy, [facility] 132 [place] [address] [facility] 132 [place] [address] 4 10:30 AM EDT Office Visit Pharmacy, [place] [address] [place] [address] [place] [address] [place] [address] 4 2:15 PM EDT Office Visit Hematology/Onco logy [facility] 200 [facility] [place] [address] Sunil Bourgeois MD 200 [facility] [place] [address] 4 12:20 PM EDT Office Visit Family Practice [facility] 132 [facility] [address] Scott Weldon MD 132 [facility] [address] 4 12:30 PM EDT Office Visit Ophthalmology, [facility] [address] [place], [place] [address] Rolan Self, DO [address] [place] [address] 4 11:15 AM EDT Hospital Encounter ENDO [facility], Endoscopy Room [facility] [address] [place] [phone] Aj Pruett, DO [address] [place] [address] 4 11:15 AM EDT - 4 11:45 AM EDT Surgery ENDO [facility], Endoscopy Room [facility] [address] [place] [phone] Aj Pruett, DO [address] [place] [address] ESOPHAGOGASTRODUODENOSCOPY (EGD), FLEXIBLE, TRANSORAL, DIAGNOSTIC 4 1:40 PM EST Office Visit Nephrology, [facility] 200 [facility] [place] [address] Jonathan Mathew MD 200 [facility] [place] [address] 5 8:00 AM EST Office Visit Family Practice [facility] [address] [place] [address] Scott Weldon MD [address] [place] [address] Scheduled Procedures Name Priority Associated Diagnoses Date/Ti [...] this encounter Medical Devices Implanted Type Area Torpedo Shooter Device Identifier Shelf Expiration Date Model / Serial / Lot Neurostimul Intellis Adaptiv - [id number] - [id number] Implanted:Qty: 1 on 08/22/2022 by Rafia Small MD at OR [facility] N/A: Spine Lumbar [employer] 06/21/2023 [id number] / [id number] / Description:battery Medtronic Lead Kit 60 Cm Implanted:Qty: 1 on 08/22/2022 by Rafia Small MD at OR [facility] N/A: Spine Lumbar 02/01/2026 [id number] / / [id number] Medtronic Lead Kit 60cm Implanted:Qty: 1 on 08/22/2022 by Rafia Small MD at OR [facility] N/A: Spine Lumbar 03/21/2026 [id number] / / [id number] Envelope Tyrx Med Antibacteril - [id number] Implanted:Qty: 1 on 08/22/2022 by Rafia Small MD at OR [facility] N/A: Spine Lumbar [employer] 03/10/2023 [id number] / / [id number] Hemostatic Clip Res 235cm - [id number] Implanted:Qty: 4 on 10/05/2023 by Aj Pruett DO at ENDOSCOPY [facility] [employer] : ENDOSCOPY 02/03/2026 [id number] / / Hemostatic Clip Res 235cm - [id number] Implanted:Qty: 1 on 10/05/2023 by Aj Pruett DO at ENDOSCOPY [facility] [employer] : ENDOSCOPY 02/02/2026 [id number] / / documented as of this encounter Visit Diagnoses Diagnosis Controlled substance agreement signed Encounter for long-term (current) use of other medications Chronic bilateral low back pain with sciatica, sciatica laterality unspecified Chronic pain syndrome [place] hypertensive gastropathy (HCC) Other specified disorder [...] Power of Attor narda? No Care Teams Airplane And Engine Inspector Relationship Specialty Start Date End Date Scott Weldon MD 132 [facility] [place] [address] PCP - General Family Medicine 08/03/18 documented as of this encounter
--- OUTSIDE RECORDS SUMMARY | 2024-02-02 08:49 | External Medical Summary | Summary of Care ---
Author Name Unknown Organization [facility] Address [address] [facility] [place] [address] Phone [phone] Care Team Providers Care Corner Block Cutter Name Role Phone Scott Weldon MD Primary Care Provider + Reason for Visit * Reason Comments eRx-Medication Refill Encounter Details Date Type Department Care Team (Late st Contact Info) Description 01/15/2024 Refill Family Practice [facility] [address] [facility] [place] [address] Scott Weldon MD [address] [facility] [place] [address] Type 2 diabetes mellitus with hemoglobin A1c goal of less than 8.0% ([facility]) Allergies Active Allergy Reactions Criticality Noted Date Comments Naproxen Sodium Bleeding High 11/29/2013 Pollen 12/03/2022 Seasonal Food (See Comments) Anaphylaxis High 04/20/2019 Hot peppers (oils) Kiwi Extract Anaphylaxis High 04/20/2019 documented as of this encounter (statuses as of 01/17/2024) Medications Medication Sig Dispensed Refills Start Date End Date Status ONETOUCH ULTRASOFT LANCETS MISCIndications:DM type 2, not at goal ([facility]) check FS 6 times daily 4 Box [...] Strip 5 02/17/2017 Active Insulin Infusion Pump (MINIMSundia Corporation 630G INSULIN PUMP) KITIndications:Type 2 diabetes mellitus [...] as of this encounter (statuses as of 01/17/2024) Active Problems Problem Noted Date Diagnosed Date [...] as of this encounter (statuses as of 01/17/2024) Resolved Problems Problem Noted Date Diagnosed Date [...] Overview: Per Obesity Taxonomy Coronary atherosclerosis of [place] coronary artery 09/15/2008 10/03/2008 Malaise and fatigue [...] as of this encounter (statuses as of 01/17/2024) Immunizations Name Administration Dates Next Due COVID-19 mRNA, LNP-s, No Pre serve, 2-Dose Series (Intellikine) 11/08/2020,10/11/2020 HEP A - Hepatitis A (Adult > 18 yrs) 04/11/2011, 09/20/2010 Hepatitis B, 20+ yrs 07/05/2015 Pneumococcal Conjugate Vacci ne, 20-valent ([id number]) 03/13/2023 Pneumococcal Polysaccharide PPV23 (Pneumovax) 02/19/2018,03/09/2007 Seasonal [...] encounter Miscellaneous Notes * Telephone Encounter - Jose David Griffin [facility] - 01/17/2024 8:41 AM EDTRefused Prescriptions: Disp Refills metFORMIN HCl 1000 MG Oral Tablet (Glucoph*180 Ta*1 Sig: TAKE 1TABLET BY MOUTH 2 TIMES A DAY WITH MORNING AND EVENING MEALSRefused By: JOSE DAVID GRIFFIN LReason for Refusal: Too soonReason for Refusal Comment: 6 months sent 12/17/23 documented in this encounter Plan of Treatment Upcoming Encounters Date Type Department Care Team (Latest Contact Info) Description 4 11:00 AM EDT Laboratory Laboratory, [place] [address] [place] [address] [facility] [address] [place] [address] 4 8:00 AM EDT Telemedicine Pharmacy, [facility] [address] [place] [address] [facility] 132 [place] [address] 4 9:00 AM EDT Telemedicine Psychiatry, [address] [place] [address] Rj Mai MD [address] [place], [place] [address] 4 10:30 AM EDT Office Visit Pharmacy, [place] [address] [place] [address] [facility] [address] [facility], [place] [address] 4 2:15 PM EDT Office Visit Hematology/Onco logy [facility] [address] [place], [place] [phone] Sunil Bourgeois MD 200 [facility] [place], [place] [address] 4 12:20 PM EDT Office Visit Family Practice [facility] [address] [place] [address] Scott Weldon MD [address] [place] [address] 4 12:30 PM EDT Office Visit Ophthalmology, [facility] [address] [place] [address] Rolan Self, DO [address] [place] [address] 4 11:15 AM EDT Hospital Encounter ENDO [facility], Endoscopy Room [facility] [address] [place] [address] Aj Pruett, DO [address] [place] [address] 4 11:15 AM EDT - 4 11:45 AM EDT Surgery ENDO [facility], Endoscopy Room [facility] [address] [place] [phone] Aj Pruett, DO [address] [place] [address] ESOPHAGOGASTRODUODENOSCOPY (EGD), FLEXIBLE, TRANSORAL, DIAGNOSTIC 4 1:40 PM EST Office Visit Nephrology, Roney Melendez 200 [place] [address] Jonathan Mathew MD [address] [facility] [place] [address] 5 8:00 AM EST Office Visit [facility] [address] [place] [address] Scott Weldon MD [address] [place] [address] Scheduled Procedures Name Priority Associated Diagnoses Date/Ti [...] this encounter Medical Devices Implanted Type Area Residential Service Technician Device Identifier Shelf Expiration Date Model / Serial / Lot Neurostimul Intellis Adaptiv - [id number] - [id number] Implanted:Qty: 1 on 08/22/2022 by Rafia Small MD at OR [facility] N/A: Spine Lumbar [employer] 06/21/2023 [id number] / [id number] / Description:battery Medtronic Lead Kit 60 Cm Implanted:Qty: 1 on 08/22/2022 by Rafia Small MD at OR [facility] N/A: Spine Lumbar 02/01/2026 [id number] / / [id number] Medtronic Lead Kit 60cm Implanted:Qty: 1 on 08/22/2022 by Rafia Small MD at OR [facility] N/A: Spine Lumbar 03/21/2026 [id number] / / [id number] Envelope Tyrx Med Antibacteril - [id number] Implanted:Qty: 1 on 08/22/2022 by Rafia Small MD at OR [facility] N/A: Spine Lumbar [employer] 03/10/2023 [id number] / / [id number] Hemostatic Clip Res 235cm - [id number] Implanted:Qty: 4 on 10/05/2023 by Aj Pruett, DO at ENDOSCOPY [facility] : ENDOSCOPY 02/03/2026 [id number] / / Hemostatic Clip Res 235cm - [id number] Implanted:Qty: 1 on 10/05/2023 by Aj Pruett DO at ENDOSCOPY [facility] : ENDOSCOPY 02/02/2026 [id number] / / documented as of this encounter [...] Power of Attor narda? No Care Teams Corner Block Cutter Relationship Specialty Start Date End Date Scott Weldon MD [address] [place] [address] PCP - General Family Medicine 08/03/18 documented as of this encounter
--- OUTSIDE RECORDS SUMMARY | 2024-02-02 08:49 | External Medical Summary | Summary of Care ---
Author Name Unknown Organization [facility] Address 100 [facility] [place] [address] Phone [phone] Care Team Providers Care Olive Brine Tester Name Role Phone Scott Weldon MD Primary Care Provider + Encounter Details Date Type Department Care Team (Late st Contact Info) Description 12/29/2023 Population Health External Data Unspecified Department Allergies Active Allergy Reactions Criticality Noted Date Comments Naproxen Sodium Bleeding High 11/29/2013 Pollen 12/03/2022 Seasonal Food (See Comments) Anaphylaxis High 04/20/2019 Hot peppers (oils) Kiwi Extract Anaphylaxis High 04/20/2019 documented as of this encounter (statuses as of 01/01/2024) Medications Medication Sig Dispensed Refills Start Date [...] of less than 8.0% ([facility]) Use as directed. 07/30/2017 Active CPAP every [...] suspected opioid overdose. Seek immediate medical attention. [email or web address] 1 Each 3 11/27/2022 Active [...] 10/21/2023 Active Baclofen 10 MG Oral Tablet (Lioresal)Tongtio ns:Back spasm Take 1 Tablet by mouth in the morning and 1 Tablet at noon and 1 Tablet before bedtime. 90 Tablet 3 11/05/2023 Active Meclizine HCl 25 MG Oral Tablet (Antivert)Tongtio ns:Vertigo Take 1 Tablet by mouth 3 [...] as of this encounter (statuses as of 01/01/2024) Active Problems Problem Noted Date Diagnosed Date [...] as of this encounter (statuses as of 01/01/2024) Resolved Problems Problem Noted Date Diagnosed Date [...] as of this encounter (statuses as of 01/01/2024) Immunizations Name Administration Dates Next Due COVID-19 mRNA, LNP-s, No Pre serve, 2-Dose Series (Nevolution) 11/08/2020,10/11/2020 HEP A - Hepatitis A (Adult > 18 yrs) 04/11/2011, 09/20/2010 Hepatitis B, 20+ yrs 07/05/2015 Pneumococcal Conjugate Vacci ne, 20-valent ([id number]) 03/13/2023 Pneumococcal Polysaccharide PPV23 (Pneumovax) 02/19/2018,03/09/2007 Seasonal [...] 18 years and over) Not on file 05/01/202 4 Are you (or your family) ruben [...] 4 9:00 AM EDT Telemedicine Psychiatry, [address] [address] Rj Mai MD [address] [place] [address] 4 10:00 AM EDT Telemedicine Pharmacy, [facility] 132 [facility] [place] [address] [place] [address] 4 8:00 AM EDT [facility] [address] [place] [address] Charlee Fields MD [address] [place] [address] 4 10:30 AM EDT Office Visit Pharmacy, [address] [address] 4 2:15 PM EDT Office Visit Hematology/Onco logy [facility] 200 [facility] [address] Sunil Bourgeois MD 200 [facility] [place] [address] 4 12:20 PM EDT Office Visit Family Practice [facility] 132 [facility] [address] Scott Weldon MD 132 [facility] [address] 4 12:30 PM EDT Office Visit Ophthalmology, [facility] 132 [facility] [place] [address] Rolan Self, DO 21 [facility] [place] [address] 4 11:15 AM EDT Hospital Encounter ENDO [facility], Endoscopy Room [facility] [address] [place] [phone] Aj Pruett, DO [address] [place], [place] [address] 4 11:15 AM EDT - 4 11:45 AM EDT Surgery ENDO [facility], Endoscopy Room [facility] [address] [place] [address] Aj Pruett, DO [address] [place] [address] ESOPHAGOGASTRODUODENOSCOPY (EGD), FLEXIBLE, TRANSORAL, DIAGNOSTIC 4 1:40 PM EST Office Visit Nephrology, [facility] 200 [facility] [place] [address] Jonathan Mathew MD 200 [facility] [place] [address] 5 8:00 AM EST Office Visit [facility] [address] [place] [address] Scott Weldon MD [address] [place] [address] Scheduled Procedures Name Priority Associated Diagnoses Date/Ti sc ESOPHAGOGASTRODUODENOSCOPY ( EGD), FLEXIBLE, TRANSORAL, DIAGNOSTIC Portal [...] 09/01/2024 09/02/2023, 04/10, 01/21/2016 B-12 09/07/2024 09/08/2023, 01/0 09/2022, 06/14/2020, Additional history exists GFR 12/15/2024 [...] this encounter Medical Devices Implanted Type Area Cover Machine Operator Device Identifier Shelf Expiration Date Model / Serial / Lot Neurostimul Intellis Adaptiv - [id number] - [id number] Implanted:Qty: 1 on 08/22/2022 by Rafia Small MD at OR [facility] N/A: Spine Lumbar [employer] 06/21/2023 [id number] / [id number] / Description:battery Medtronic Lead Kit 60 Cm Implanted:Qty: 1 on 08/22/2022 by Rafia Small MD at OR [facility] N/A: Spine Lumbar 02/01/2026 [id number] / / [id number] Medtronic Lead Kit 60cm Implanted:Qty: 1 on 08/22/2022 by Rafia Small MD at OR [facility] N/A: Spine Lumbar 03/21/2026 [id number] / / [id number] Envelope Tyrx Med Antibacteril - [id number] Implanted:Qty: 1 on 08/22/2022 by Rafia Small MD at OR [facility] N/A: Spine Lumbar [employer] 03/10/2023 [id number] / / [id number] Hemostatic Clip Res 235cm - [id number] Implanted:Qty: 4 on 10/05/2023 by Aj Preutt DO at ENDOSCOPY [facility] : ENDOSCOPY 02/03/2026 [id number] / / Hemostatic Clip Res 235cm - [id number] Implanted:Qty: 1 on 10/05/2023 by Aj Pruett DO at ENDOSCOPY [facility] : ENDOSCOPY 02/02/2026 [id number] / / documented as of this encounter [...] Power of Attor narda? No Care Teams Olive Brine Tester Relationship Specialty Start Date End Date Scott Weldon MD [address] [place] [address] PCP - General Family Medicine 08/03/18 documented as of this encounter
--- OUTSIDE RECORDS SUMMARY | 2024-02-02 08:50 | External Medical Summary | Summary of Care ---
Author Name Unknown Organization [facility] Address 100 [facility] [place] [address] Phone [phone] Care Team Providers Care Mixer Machine Feeder Name Role Phone Scott Weldon MD Primary Care Provider + Reason for Visit * Reason Onset Date Comments Medication Update 12/17/2023 Encounter Details Date Type Department Care Team (Late st Contact Info) Description 12/17/2023 Telephone Pharmacy, [address] [address] [facility] [address] [place] [address] Medication Update Allergies Active Allergy Reactions Criticality Noted Date Comments Naproxen Sodium Bleeding High 11/29/2013 Pollen 12/03/2022 Seasonal Food (See Comments) Anaphylaxis High 04/20/2019 Hot peppers (oils) Kiwi Extract Anaphylaxis High 04/20/2019 documented as of this encounter (statuses as of 12/17/2023) Medications Medication Sig Dispensed Refills Start Date [...] Strip 5 02/17/2017 Active Insulin Infusion Pump (MINIMEnvox Group 630G INSULIN PUMP) KITIndications:Type 2 diabetes mellitus with hemoglobin A1c goal of less than 8.0% ([facility]) Use as directed. 07/30/2017 Active CPAP [...] suspected opioid overdose. Seek immediate medical attention. [email or web address] 1 Each 3 11/27/2022 Active [...] goal of less than 8.0% ([facility]),DM type 2, not at goal ([facility]) INJECT UP TO 200 UNITS SUBCUTANEOSULY [...] and 1 Tablet before bedtime. 10/13/2023 Active Potassium Chloride [facility] 20 MEQ Oral Tablet Extended Release Take 1 Tablet by mouth in the morning. 10/13/2023 Active Magnesium Oxide -Mg Supplement 400 [...] Dose decrease 90 Tablet 1 12/17/2023 Active documented as of this encounter (statuses as of 12/17/2023) Active Problems Problem Noted Date Diagnosed Date [...] as of this encounter (statuses as of 12/17/2023) Resolved Problems Problem Noted Date Diagnosed Date [...] Overview: Per Obesity Taxonomy Coronary atherosclerosis of [place] coronary artery 09/15/2008 10/03/2008 Malaise and fatigue [...] as of this encounter (statuses as of 12/17/2023) Immunizations Name Administration Dates Next Due COVID-19 mRNA, LNP-s, No Pre serve, 2-Dose Series (Finderly) 11/08/2020,10/11/2020 HEP A - Hepatitis A (Adult > 18 yrs) 04/11/2011, 09/20/2010 Hepatitis B, 20+ yrs 07/05/2015 Pneumococcal Conjugate Vacci ne, 20-valent (Gextemz13) 03/13/2023 Pneumococcal Polysaccharide PPV23 (Pneumovax) 02/19/2018,03/09/2007 Seasonal [...] Notes * Telephone Encounter - Danielle Anderson nadine - 12/17/2023 8:57 AM EDT Basic Panel Results: Results for orders placed or performed in visit on 12/16/23 BASIC METABOLIC PANEL Result Value Ref Range BUN 24 (H) 6 - 20 mg/dL Creatinine 1.7 (H) 0.5 - 1.0 mg/dL Estimated Glomerular Filtration Rate 37 (L) >=60 mL/min Sodium 144 135 - 146 mmol/L Potassium 4.3 3.5 - 5.1 mmol/L Chloride 102 98 - 107 mmol/L CO2 27 22 - 32 mmol/L Anion Gap 15 7 - 15 mmol/L Glucose 157 (H) 70 - 120 mg/dL Calcium 8.9 8.4 - 10.2 mg/dL eGFR is below 45 mL/min. Wireless EnvironmentG message sent to patient to make adjustments to DM medication. Diabetic Medications: DEC Metformin 1000mg once a day Ozempic 2 mg once weekly Jardiance 10 mg once daily eGFR 37 mL/min as of 12/16/23 [employer] D[employer] - [employer] ([id number]) Infusion Set: Quick Set Insulin: Novolin R Basal Rate 12a-8a 2.30 u/hr 8a-12a 4.00 u/hr Bolus: hardly using (was 15 units for breakfast and lunch/ 22 units for supper- 10 units for chocolate milk snack before bed) Carb ratio 1:3 Bolus wizard: hardly using ISF: 1:10 Blood Glucose Goals: 100-140 Active Insulin Time: 2 hours Follow up 12/25/2023 as scheduled. Danielle Anderson, PharmD, BCACP Clinical Pharmacist Medication Therapy Disease Management 12/17/2023, 8:59 AM documented in this encounter Plan of Treatment Upcoming Encounters Date Type Department Care Team (Latest Contact Info) Description 11:00 AM EDT Office Visit Pharmacy, [place] [address] [facility] [address] [place], [facility] [address] [facility] [address] 4 9:00 AM EDT Telemedicine Psychiatry, [facility] 200 [facility] [place] [address] Rj Mai MD [address] [place] [address] 4 12:00 PM EDT Immunization/Inje ction Hematology/Onco logy Treatment, [place] [address] [facility] [place] [phone] Nurse, Med 4 200 [facility] [place] [address] 4 10:00 AM EDT Telemedicine Pharmacy, [facility] 132 [place] [address] [facility] 132 [facility] [place] [address] 4 8:00 AM EDT Telemedicine Gastroenterolog y, [address] [address] Charlee Fields MD [address] [place] [address] 4 2:15 PM EDT Office Visit Hematology/Onco logy [facility] [place] 200 [facility] [place] [address] Sunil Bourgeois MD [address] [facility] [place] [address] 4 12:20 PM EDT Office Visit Family Practice [facility] 132 [facility] [address] Scott Weldon MD 132 [facility] [address] 4 12:30 PM EDT Office Visit Ophthalmology, [facility] [address] [place] [address] Rolan Self, DO [address] [place] [address] 4 11:15 AM EDT Hospital Encounter ENDO [facility], Endoscopy Room [facility] [address] [place] [phone] Aj Pruett, DO [address] [place] [address] 4 11:15 AM EDT - 4 11:45 AM EDT Surgery ENDO [facility], Endoscopy Room [facility] [address] [place] [phone] Aj Pruett, DO [address] [place] [address] ESOPHAGOGASTRODUODENOSCOPY (EGD), FLEXIBLE, TRANSORAL, DIAGNOSTIC 4 1:40 PM EST Office Visit Nephrology, [facility] 200 [facility] [place] [address] Jonathan Mathew MD 200 [facility] [place] [address] 5 8:00 AM EST Office Visit Family Practice [facility] [address] [place] [address] Scott Weldon MD [address] [place] [address] Scheduled Procedures Name Priority Associated Diagnoses Date/Ti [...] this encounter Medical Devices Implanted Type Area Maintenance Director Device Identifier Shelf Expiration Date Model / Serial / Lot Neurostimul Intellis Adaptiv - [id number] - [id number] Implanted:Qty: 1 on 08/22/2022 by Rafia Small MD at OR [facility] N/A: Spine Lumbar [employer] 06/21/2023 [id number] / [id number] / Description:battery Medtronic Lead Kit 60 Cm Implanted:Qty: 1 on 08/22/2022 by Rafia Small MD at OR [facility] N/A: Spine Lumbar 02/01/2026 [id number] / / [id number] Medtronic Lead Kit 60cm Implanted:Qty: 1 on 08/22/2022 by Rafia Small MD at OR [facility] N/A: Spine Lumbar 03/21/2026 [id number] / / [id number] Envelope Tyrx Med Antibacteril - [id number] Implanted:Qty: 1 on 08/22/2022 by Rafia Small MD at OR [facility] N/A: Spine Lumbar [employer] 03/10/2023 [id number] / / [id number] Hemostatic Clip Res 235cm - [id number] Implanted:Qty: 4 on 10/05/2023 by Aj Pruett DO at ENDOSCOPY [facility] ENDOSCOPY 02/03/2026 [id number] / / Hemostatic Clip Res 235cm - [id number] Implanted:Qty: 1 on 10/05/2023 by Aj Pruett DO at ENDOSCOPY [facility] : ENDOSCOPY 02/02/2026 [id number] / / documented as of this encounter Visit Diagnoses Diagnosis Type 2 diabetes mellitus with hemoglobin A1c goal of less than 8.0% (HCC)- Primary Portal hypertensive gastropathy (HCC) Other specified [...] Power of Attor narda? No Care Teams Mixer Machine Feeder Relationship Specialty Start Date End Date Scott Weldon MD [address] [place] [address] PCP - General Family Medicine 08/03/18 documented as of this encounter
--- OUTSIDE RECORDS SUMMARY | 2024-02-02 08:50 | External Medical Summary | Summary of Care ---
Author Name Unknown Organization [facility] Address [address] [place] [address] Phone [phone] Care Team Providers Care County Administrator Name Role Phone Scott Weldon MD Primary Care Provider + Reason for Visit * Reason Comments Outpatient Testing Encounter Details Date Type Department Care Team (Late st Contact Info) Description 12/16/2023 11:00 AM EDT Laboratory Laboratory, [facility] [place] [address] [place] [address] [place], [facility] [address] [place] [address] Iron deficiency anemia, unspecified iron deficiency anemia type; Type 2 diabetes mellitus with hemoglobin A1c goal of less than 8.0% ([facility]) Allergies Active Allergy Reactions Criticality Noted Date Comments Naproxen Sodium Bleeding High 11/29/2013 Pollen 12/03/2022 Seasonal Food (See Comments) Anaphylaxis High 04/20/2019 Hot peppers (oils) Kiwi Extract Anaphylaxis High 04/20/2019 documented as of this encounter (statuses as of 12/16/2023) Medications Medication Sig Dispensed Refills Start Date End Date Status ONETOUCH ULTRASOFT LANCETS MISCIndications:DM type 2, not at goal ([facility]) check FS 6 times daily 4 [...] Strip 5 02/17/2017 Active Insulin Infusion Pump ([employer] 630G INSULIN PUMP) KITIndications:Type 2 diabetes mellitus with hemoglobin A1c goal of less than 8.0% ([facility]) Use as directed. 07/30/2017 Active CPAP [...] goal of less than 8.0% ([facility]) Take 1 Tablet by mouth in the morning. Please get blood work completed the week of December 06. 30 Tablet 5 12/14/2023 Active documented as of this encounter (statuses as of 12/16/2023) Active Problems Problem Noted Date Diagnosed Date [...] as of this encounter (statuses as of 12/16/2023) Resolved Problems Problem Noted Date Diagnosed Date [...] Overview: Per Obesity Taxonomy Coronary atherosclerosis of [place] coronary artery 09/15/2008 10/03/2008 Malaise and fatigue [...] as of this encounter (statuses as of 12/16/2023) Immunizations Name Administration Dates Next Due COVID-19 mRNA, LNP-s, No Pre serve, 2-Dose Series (Bill.Forward) 11/08/2020,10/11/2020 HEP A - Hepatitis A (Adult > 18 yrs) 04/11/2011, 09/20/2010 Hepatitis B, 20+ yrs 07/05/2015 Pneumococcal Conjugate Vacci ne, 20-valent ([id number]) 03/13/2023 Pneumococcal Polysaccharide PPV23 (Pneumovax) 02/19/2018,03/09/2007 Seasonal [...] Contact Info) Description 4 11:00 AM EDT Office Visit Pharmacy, [place] [address] [place] [address] [facility] [address] [place] [address] 4 9:00 AM EDT Telemedicine Psychiatry, [facility] 200 [facility] [place] [address] Rj Mai MD [address] [place] [address] 4 12:00 PM EDT Immunization/Inje ction Hematology/Onco logy Treatment, [place] [facility] [phone] Nurse, Med 200 [facility] [place] [address] 4 10:00 AM EDT [facility] 132 [place] [address] [address] [place] [address] 4 8:00 AM EDT Telemedicine Gastroenterolog y, [address] [address] Charlee Fields MD [address] [place] [address] 4 2:15 PM EDT Office Visit Hematology/Onco logy [facility] Nora [place] [address] [place] [phone] Sunil Bourgeois MD [address] [place] [address] 4 12:20 PM EDT [facility] 132 [facility] [place] [address] Scott Weldon MD [address] [place] [address] 4 12:30 PM EDT Office Visit Ophthalmology, [facility] [address] [place] [address] Rolan Self, DO [address] [facility] [place] [address] 4 11:15 AM EDT Hospital Encounter ENDO [facility], Endoscopy Room [facility] [address] [place], [place] [phone] Aj Pruett, DO [address] [place] [address] 4 11:15 AM EDT - 4 11:45 AM EDT Surgery ENDO [facility], Endoscopy Room [facility] [address] [place] [phone] Aj Pruett, DO [address] [place] [address] ESOPHAGOGASTRODUODENOSCOPY (EGD), FLEXIBLE, TRANSORAL, DIAGNOSTIC 4 1:40 PM EST Office Visit Nephrology, [facility] [address] [place] [address] Jonathan Mathew MD [address] [place] [address] 5 8:00 AM EST Office Visit Family Practice [facility] [address] [place] [address] Scott Weldon MD [address] [place] [address] Pending Results Name Type Priority Associated Diagnoses Date /Time CBC WITH WBC DIFFERENTIAL Lab STAT Iron deficiency anemia, unspecified iron deficiency anemia type 12/16/2023 11:10 AM EDT FERRITIN Lab STAT Iron deficiency anemia, unspecified iron deficiency anemia type 12/16/2023 11:10 AM EDT IRON SCREEN, INCLUDING TIBC Lab STAT Iron deficiency anemia, unspecified iron deficiency anemia type 12/16/2023 11:10 AM EDT BASIC METABOLIC PANEL Lab Routine Type 2 diabetes mellitus with hemoglobin A1c goal of less than 8.0% (HCC) 12/16/2023 11:10 AM EDT CBC Lab STAT Iron deficiency anemia, unspecified iron deficiency anemia type 12/16/2023 11:10 AM EDT DIFFERENTIAL, AUTOMATED Lab STAT Iron deficiency anemia, unspecified iron deficiency anemia type 12/16/2023 11:10 AM EDT Scheduled Procedures Name Priority Associated [...] 07/09, 02/18/2023, Additional history exists Albumin/Creatinine Ratio 07/23/202407/23/2 024, 04/06/2023, 03/11/2022, Additional history exists Mammogram 09/01/2024 09/02/2023, 04/10, 01/21/2016 B-12 09/07/2024 09/08/2023, 09/2022, 06/14/2020, Additional history exists GFR 11/12/2024 11/13/2023, 10/06, 10/02/2023, Additional history exists Pap Smear 09/07/2026 09/08/2023, [...] encounter Medical Devices Implanted Type Area Technical Support Analyst Device Identifier Shelf Expiration Date Model / Serial / Lot Neurostimul Intellis Adaptiv - [id number] - [id number] Implanted:Qty: 1 on 08/22/2022 by Rafia Small MD at OR [facility] N/A: Spine Lumbar [employer] [place] [employer] 06/21/2023 [id number] / [id number] / Description:battery Medtronic Lead Kit 60 Cm Implanted:Qty: 1 on 08/22/2022 by Rafia Small MD at OR [facility] N/A: Spine Lumbar 02/01/2026 [id number] / / [id number] Medtronic Lead Kit 60cm Implanted:Qty: 1 on 08/22/2022 by Rafia Small MD at OR [facility] N/A: Spine Lumbar 03/21/2026 [id number] / / [id number] Envelope Tyrx Med Antibacteril - [id number] Implanted:Qty: 1 on 08/22/2022 by Rafia Small MD at OR [facility] N/A: Spine Lumbar [employer] 03/10/2023 [id number] / / [id number] Hemostatic Clip Res 235cm - [id number] Implanted:Qty: 4 on 10/05/2023 by Aj Pruett DO at ENDOSCOPY [facility] : ENDOSCOPY 02/03/2026 [id number] / / Hemostatic Clip Res 235cm - [id number] Implanted:Qty: 1 on 10/05/2023 by Aj Pruett DO at ENDOSCOPY [facility] : ENDOSCOPY 02/02/2026 [id number] / / documented as of this encounter [...] Power of Attor narda? No Care Teams County Administrator Relationship Specialty Start Date End Date Scott Weldon MD [address] [place] [address] PCP - General Family Medicine 08/03/18 documented as of this encounter
--- OUTSIDE RECORDS SUMMARY | 2024-02-02 08:50 | External Medical Summary | Summary of Care ---
Author Name Unknown Organization [facility] Address [address] [place] [address] Phone [phone] Care Team Providers Care Technical Developer Name Role Phone Scott Weldon MD Primary Care Provider + Encounter Details Date Type Department Care Team (Late st Contact Info) Description 12/30/2023 9:00 AM EDT Telemedicine Psychiatry, [address] [address] Rj Mai MD [address] [place] [address] MICHELLE (generalized anxiety disorder)* Allergies Active Allergy Reactions Criticality Noted Date Comments Naproxen Sodium Bleeding High 11/29/2013 Pollen 12/03/2022 Seasonal Food (See Comments) Anaphylaxis High 04/20/2019 Hot peppers (oils) Kiwi Extract Anaphylaxis High 04/20/2019 documented as of this encounter (statuses as of 12/30/2023) Medications Medication Sig Dispensed Refills Start Date [...] suspected opioid overdose. Seek immediate medical attention. [email or web address] Each 3 11/27/2022 Active [...] as of this encounter (statuses as of 12/30/2023) Active Problems Problem Noted Date Diagnosed Date [...] as of this encounter (statuses as of 12/30/2023) Resolved Problems Problem Noted Date Diagnosed Date [...] Overview: Per Obesity Taxonomy Coronary atherosclerosis of [place] coronary artery 09/15/2008 10/03/2008 Malaise and fatigue [...] as of this encounter (statuses as of 12/30/2023) Immunizations Name Administration Dates Next Due COVID-19 mRNA, LNP-s, No Pre serve, 2-Dose Series (NetMovie) 11/08/2020,10/11/2020 HEP A - Hepatitis A (Adult > 18 yrs) 04/11/2011, 09/20/2010 Hepatitis B, 20+ yrs 07/05/2015 Pneumococcal Conjugate Vacci ne, 20-valent ([id number]) 03/13/2023 Pneumococcal Polysaccharide PPV23 (Pneumovax) 02/19/2018,03/09/2007 Seasonal [...] Progress Notes * Rj Mai MD - 12/30/2023 9:01 AM EDT Patient location: HOME. I was not in a hospital or clinic location. After connecting through televSambazono, patient was verified with two unique identifiers. Patient (or authorized legal client representative) was then informed that this was a Telemedicine visit and being conducted confidentially over secure lines. Methods to assure confidentiality were taken. Patient acknowledged consent and understanding of privacy and security of the Telemedicine visit. The patient agreed to participate. PSYCHOTHERAPY & MEDICATION MANAGEMENT RETURN VISIT NOTE CHIEF COMPLAINT: f/u appt INTERVAL HISTORY: she states she is "ok". Has been having issues with kidneys (labs reviewed below). Feeling run down some days. States she can't help but worry about medical issues. Overall, "emotions are high". States she has been going to the [employer], which she is enjoying. She is also spending timein stores-- feels this is good exercise for her. Son's wedding in March is also source of stress.Some challenging dynamics with ROS EXAM: negative except as noted above [...] for suspectedopioid overdose. Seek immediate medical attention. [email or web address] 1 Each 3 Atenolol 100 MG Oral [...] by mouth at bedtime.) 90 Tablet 3 Albuterol Sulfate HFA 108 (90 Base) MCG/ACT Inhalation Aerosol Solution INHALE 2 PUFFS BY MOUTH EVERY 6 HOURS NEEDED FOR SHORTNESS OF BREATH 18 g 2 hydrOXYzine HCl 25 MG Oral Tablet Take 1 tab during the day every 4-6 hours as needed for anxiety and take 2 tabs at bedtime as needed for anxiety 450 Tablet 1 Furosemide 40 MG Oral Tablet (Lasix) Take 1 Tablet by mouth in the morning and 1 Tablet before bedtime. Potassium Chloride [facility] 20 MEQ Oral Tablet Extended Release Take 1 Tablet by mouth in the morning. Magnesium Oxide -Mg Supplement 400 (240 Mg) MG Oral Tablet (Mag-Ox) Take 1 Tablet by mouth in the morning. 90 Tablet 3 Metoclopramide HCl 5 MG Oral Tablet (Reglan) Take 1 Tablet by mouth in the morning and 1 Tablet at noon and 1 Tablet in the evening. Take before meals. If needed for nausea. 30 Tablet 0 Baclofen 10 MG Oral Tablet (Lioresal) Take 1 Tablet by mouth in the morning and 1 Tablet at noon and 1 Tablet before bedtime. 90 Tablet 3 Meclizine HCl 25 MG Oral Tablet (Antivert) [...] by mouth at bedtime. 30 Tablet 1 Buprenorphine 5 MCG/HR Transdermal Patch Weekly (Butrans) Place 1 Patch topically on the skin once a week. 4 Patch 0 Empagliflozin 10 MG Oral Tablet (Jardiance) Take 1 Tablet by mouth in the morning. Please get bloodwork completed the week of December 06. 30 Tablet 5 metFORMIN HCl 1000 MG Oral Tablet (Glucophage) Take 1 Tablet by mouth daily. Dose decrease 90 Tablet 1 No current facility-administered medications for this visit. [...] recurrent, in remission Generalized Anxiety Disorder PTSD PLAN : - Continue Lexapro 20 daily - cont hydroxyzine: 25mg TID PRN - Continue Trazodone 200 mg QHS - Cont Lunesta 2 mg QHS for sleep - Wearing CPAP each night for DONNA Return 4 weeks Risk/Benefits of Medication Discussed/Verbalized Understanding yes Time Spent on Visit: 30 minutes - including preparing to see the patient, reviewing history, performing evaluation, counseling/educating patient, ordering medications/tests, documenting clinical information. documented in this encounter Plan of Treatment Upcoming Encounters Date Type Department Care Team (Latest Contact Info) Description 4 12:00 PM EDT Immunization/Inje ction Hematology/Onco logy Treatment, [place] [address] [place] [address] Nora, Chair 5 Hem Onc [address] [place] [address] 4 9:00 AM EDT Telemedicine Psychiatry, [address] [place] [address] Rj Mai MD [address] [place] [address] 4 10:00 AM EDT Telemedicine Pharmacy, [facility] [address] [facility] 132 [place] [address] 4 8:00 AM EDT Telemedicine Gastroenterolog y, [address] [place] [address] Charlee Fields MD [address] [place] [address] 4 10:30 AM EDT Office Visit Pharmacy, [address] [address] 4 2:15 PM EDT Office Visit Hematology/Onco logy [facility] 200 [facility] [place] [phone] Sunil Bourgeois MD 200 [facility] [place] [address] 4 12:20 PM EDT Office Visit Family Practice [facility] 132 [facility] [place] [address] Scott Weldon MD 132 [facility] [place] [address] 4 12:30 PM EDT Office Visit Ophthalmology, [facility] 132 [facility] [place] [address] Rolan Self, DO 21 [facility] [place] [address] 4 11:15 AM EDT Hospital Encounter ENDO [facility], Endoscopy Room [facility] [address] [place], [place] [phone] Aj Pruett, DO [address] [place], [place] [address] 4 11:15 AM EDT - 4 11:45 AM EDT Surgery ENDO [facility], Endoscopy Room [facility] [address] [place] [phone] Aj Pruett, DO [address] [place], [place] [address] ESOPHAGOGASTRODUODENOSCOPY (EGD), FLEXIBLE, TRANSORAL, DIAGNOSTIC 4 1:40 PM EST Office Visit Nephrology, [facility] 200 [facility] [place] [address] Jonathan Mathew MD 200 [facility] [place], [place] [address] 5 8:00 AM EST Office Visit [facility] [address] [facility] [place] [address] Scott Weldon MD [address] [place] [address] Scheduled Procedures Name Priority Associated Diagnoses Date/Ti [...] Vaccine (3 - season) 2023 11/08/2020, 10/11/2020 Influenza Vaccine (FLU [...] this encounter Medical Devices Implanted Type Area Farm Machinery Mechanic Device Identifier Shelf Expiration Date Model / Serial / Lot Neurostimul Intellis Adaptiv - [id number] - [id number] Implanted:Qty: 1 on 08/22/2022 by Rafia Small MD at OR [facility] N/A: Spine Lumbar [employer] 06/21/2023 [id number] / [id number] / Description:battery Medtronic Lead Kit 60 Cm Implanted:Qty: 1 on 08/22/2022 by Rafia Small MD at OR [facility] N/A: Spine Lumbar 02/01/2026 [id number] / / [id number] Medtronic Lead Kit 60cm Implanted:Qty: 1 on 08/22/2022 by Rafia Small MD at OR [facility] N/A: Spine Lumbar 03/21/2026 [id number] / / [id number] Envelope Tyrx Med Antibacteril - [id number] Implanted:Qty: 1 on 08/22/2022 by Rafia Small MD at OR [facility] N/A: Spine Lumbar [employer] 03/10/2023 [id number] / / [id number] Hemostatic Clip Res 235cm - [id number] Implanted:Qty: 4 on 10/05/2023 by Aj Pruett DO at ENDOSCOPY [facility] : ENDOSCOPY 02/03/2026 [id number] / / Hemostatic Clip Res 235cm - [id number] Implanted:Qty: 1 on 10/05/2023 by Aj Pruett DO at ENDOSCOPY [facility] : ENDOSCOPY 02/02/2026 [id number] / / documented as of this encounter Visit Diagnoses Diagnosis MICHELLE (generalized anxiety disorder)- Primary Generalized anxiety disorder Portal hypertensive gastropathy (HCC) Other specified disorder of stomach and duodenum Multiple gastric polyps Benign neoplasm of stomach documented in this encounter Advance Directives * Full Code (Latest Code Status on File) Date Activated Date Inactivated Comments 04/20/2019 11:06 AM 04/21/2019 6:32 PM This ord er reflects the patients wishes and were consensually [...] Power of Attor narda? No Care Teams Technical Developer Relationship Specialty Start Date End Date Scott Weldon MD [address] [place] [address] PCP - General Family Medicine 08/03/18 documented as of this encounter
--- OUTSIDE RECORDS SUMMARY | 2024-02-02 08:50 | External Medical Summary | Summary of Care ---
Author Name Unknown Organization [facility] Address [address] [facility] [place] [address] Phone [phone] Care Team Providers Care Group Chief Operator Name Role Phone Scott [place] MD Primary Care Provider + Reason for Visit * Reason Onset Date Comments Pre Op Discussion 09/29/2023 Encounter Details Date Type Department Care Team (Late st Contact Info) Description 09/29/2023 Telephone OR [facility], Operating Room [facility] [address] [place] [phone] Aj Pruett DO [address] [place] [address] Pre Op Discussion Allergies Active Allergy Reactions Criticality Noted Date Comments Naproxen Sodium Bleeding High 11/29/2013 Pollen 12/03/2022 Seasonal Food (See Comments) Anaphylaxis High 04/20/2019 Hot peppers (oils) Kiwi Extract Anaphylaxis High 04/20/2019 documented as of this encounter (statuses as of 12/29/2023) Medications Medication Sig Dispensed Refills Start Date [...] Strip 5 7 Active Insulin Infusion Pump ([employer] 630G INSULIN PUMP) KITIndications:Type 2 diabetes mellitus with hemoglobin A1c goal of less than 8.0% ([facility]) Use as directed. 8 Active CPAP every [...] suspected opioid overdose. Seek immediate medical attention. [email or web address]?[email or web address] 1 Each 3 3 Active Atenolol 100 [...] OF BREATH 18 g 2 4 Active Magnesium Oxide 400 (240 Mg) MG Oral Tablet (Mag-Ox)Indications :Hypomagnesemia TAKE 1 TABLET BY MOUTH EVERY DAY 90 Tablet 3 3 10/19/19 24 Discontinu ed(Refill) Metoclopramide HCl 5 MG Oral Tablet (Reglan) Take 1 Tablet by mouth in the morning and 1 Tablet at noon and 1 Tablet in the evening. Take before meals. If needed for nausea. 30 Tablet 3 10/19/19 24 Discontinu ed(Refill) Meclizine HCl 25 MG Oral Tablet (Antivert)Indicatio ns:Vertigo Take 1 Tablet by mouth 3 times a day as needed for Dizziness. 30 Tablet 1 3 11/16/19 24 Discontinu ed(Refill) Zoster Vac Recomb Adjuvanted 50 MCG/0.5ML Intramuscular Suspension Reconstituted (Shingrix)Indicatio ns:Need for vaccination for zoster Inject 0.5 mL into a large muscle now and repeat dose in 60 to 180 days 1 Each 1 3 11/25/19 24 Discontinu ed(Medicat ion List Clean Up) metroNIDAZOLE 500 MG Oral Tablet Take 1 Tablet by mouth in the morning and 1 Tablet at noon and 1 Tablet before bedtime. 11/25/19 24 Discontinu ed(Medicat ion List Clean Up) Cefdinir 300 MG Oral Capsule (Omnicef) Take 1 Capsule by mouth in the morning and 1 Capsule before bedtime. 11/25/19 24 Discontinu ed(Medicat ion List Clean Up) hydrOXYzine HCl 25 MG Oral Tablet Take 1 tab during the day every 4-6 hours as needed for anxiety and take 2 tabs at bedtime as needed for anxiety 120 Tablet 1 4 10/12/19 24 Discontinu ed(Refill) Buprenorphine 5 MCG/HR Transdermal Patch Weekly (Butrans)Indication s:Controlled substance agreement signed,Chronic bilateral low back pain with sciatica, sciatica laterality unspecified,Chronic pain syndrome Place 1 Patch topically on the skin once a week. 4 Patch 4 10/19/19 24 Discontinu ed(Refill) Eszopiclone 2 MG Oral Tablet (Lunesta) Take 1 Tablet by mouth at bedtime. 30 Tablet 1 4 11/28/19 24 Discontinu ed(Refill) documented as of this encounter (statuses as of 12/29/2023) Active Problems Problem Noted Date Diagnosed Date [...] as of this encounter (statuses as of 12/29/2023) Resolved Problems Problem Noted Date Diagnosed Date [...] Overview: Per Obesity Taxonomy Coronary atherosclerosis of [place] coronary artery 09/15/2008 10/03/2008 Malaise and fatigue [...] as of this encounter (statuses as of 12/29/2023) Immunizations Name Administration Dates Next Due COVID-19 mRNA, LNP-s, No Pre serve, 2-Dose Series ([facility]) 11/08/2020,10/11/2020 HEP A - Hepatitis A (Adult > 18 yrs) 04/11/2011, 09/20/2010 Hepatitis B, 20+ yrs 07/05/2015 Pneumococcal Conjugate Vacci ne, 20-valent ([id number]) 03/13/2023 Pneumococcal Polysaccharide PPV23 (Pneumovax) 02/19/2018,03/09/2007 Seasonal Influenza, PF, 6 M & above, IM , (FluLaval or Fluzone) 03/13/2023,03/01/2021,02/28/2020,03/09,02/19/2018,03/02/2017 Seasonal Influenza, Quadriva lent, No Preserve, IM 03/20/2016,07/05/2015 Seasonal Influenza, Split, I IV3, With Preserve, Inj 06/22/2014,03/03/2013,04/09/2012,04/11,02/25/2010,02/19/2009,05/17/2008 ,03/09/2007 TDAP (age 10 and older)(Boostrix) 08/05/2018 TDAP, Age 7 and older, IM (Adacel) 05/15/2008 Zoster Vaccine Recombinant (Shingrix) 04/19/2023 documented [...] Telephone Encounter - Leonarda Mccabe RN - 10/01/2023 8:10 AM EDT Called patient for pre anesthesia evaluation for upcoming procedure ,no answer. Left message on home machine /request return call /cell # VM full/ unable to leave message * Telephone Encounter - Fiorella Gallegos RN - 09/30/2023 9:44 AM EDT Attempted to call for pre anesthesia evaluation. No answer. Voice mail full * Telephone Encounter - Leonarda Mccabe RN - 09/29/2023 10:43 AM EDT Called patient for pre anesthesia evaluation for upcoming procedure ,no answer. Left message on machine /request return call /sent My G documented in this encounter Plan of Treatment Upcoming Encounters Date Type Department Care Team (Latest Contact Info) Description 4 9:00 AM EDT Telemedicine Psychiatry, [address] [place] [address] Rj Mai MD [address] [place] [address] 4 12:00 PM EDT Immunization/Inje ction Hematology/Onco logy Treatment, [place] [facility] [phone] Nora, Chair 5 Hem Onc [facility] 200 [facility] [place] [address] 4 10:00 AM EDT Telemedicine Pharmacy, [facility] 132 [facility] [place] [address] [facility] 132 [facility] [place] [address] 4 8:00 AM EDT [facility] [address] [place] [address] Charlee Fields MD [address] [facility] [address] 4 10:30 AM EDT Office Visit Pharmacy, [place] [address] [place] [address] [facility] [address] [place] [address] 4 2:15 PM EDT Office Visit Hematology/[facility] [address] [place] [phone] Sunil Bourgeois MD [address] [place] [address] 4 12:20 PM EDT Office Visit Family Practice [facility] [address] [place] [address] Scott [place] MD [address] [place] [address] 4 12:30 PM EDT Office Visit Ophthalmology, [facility] [address] [place] [address] Rolan Self, DO [address] [facility] [place] [address] 4 11:15 AM EDT Hospital Encounter ENDO [facility], Endoscopy Room [facility] [address] [place] [phone] Aj Pruett DO [address] [place] [address] 4 11:15 AM EDT - 4 11:45 AM EDT Surgery ENDO [facility], Endoscopy Room [facility] [address] [place] [phone] Aj Pruett DO [address] [place] [address] ESOPHAGOGASTRODUODENOSCOPY (EGD), FLEXIBLE, TRANSORAL, DIAGNOSTIC 4 1:40 PM EST Office Visit Nephrology, [facility] 200 [facility] [place], [place] [address] Jonathan Mathew MD 200 [facility] [place] [address] 5 8:00 AM EST Office Visit [facility] [address] [place] [address] Scott [place] MD [address] [place] [address] Scheduled Procedures Name Priority Associated Diagnoses Date/Ti [...] this encounter Medical Devices Implanted Type Area Pollution Control Chemist Device Identifier Shelf Expiration Date Model / Serial / Lot Neurostimul Intellis Adaptiv - [id number] - [id number] Implanted:Qty: 1 on 08/22/2022 by Rafia Small MD at OR [facility] N/A: Spine Lumbar [employer] 06/21/2023 [id number] / [id number] / Description:battery Medtronic Lead Kit 60 Cm Implanted:Qty: 1 on 08/22/2022 by Rafia Small MD at OR [facility] N/A: Spine Lumbar 02/01/2026 [id number] / / [id number] Medtronic Lead Kit 60cm Implanted:Qty: 1 on 08/22/2022 by Rafia Small MD at OR [facility] N/A: Spine Lumbar 03/21/2026 [id number] / / [id number] Envelope Tyrx Med Antibacteril - [id number] Implanted:Qty: 1 on 08/22/2022 by Rafia Small MD at OR [facility] N/A: Spine Lumbar [employer] 03/10/2023 [id number] / / [id number] Hemostatic Clip Res 235cm - [id number] Implanted:Qty: 4 on 10/05/2023 by Aj Pruett DO at ENDOSCOPY [facility] : ENDOSCOPY 02/03/2026 [id number] / / Hemostatic Clip Res 235cm - [id number] Implanted:Qty: 1 on 10/05/2023 by Aj Pruett DO at ENDOSCOPY [facility] : ENDOSCOPY 02/02/2026 [id number] / / documented as of this encounter [...] Power of Attor narda? No Care Teams Group Chief Operator Relationship Specialty Start Date End Date Scott [place] MD [address] [place] [address] PCP - General Family Medicine 08/03/18 documented as of this encounter
--- OUTSIDE RECORDS SUMMARY | 2024-02-02 08:50 | External Medical Summary | Summary of Care ---
Author Name Unknown Organization [facility] Address 100 [place] [address] Phone [phone] Care Team Providers Care [place] Name Role Phone Scott [place] MD Primary Care Provider + Reason for Visit * Reason Comments Dosage Adjustment In Person (Anticoag Cl inic) Diabetes Follow-Up Insulin Pump Encounter Details Date Type Department Care Team (Late st Contact Info) Description 12/25/2023 11:00 AM EDT Office Visit Pharmacy, [place] [address] [place] [address] [facility] [address] [place] [address] Type 2 diabetes mellitus with hemoglobin A1c goal of less than 8.0% ([facility])* Allergies Active Allergy Reactions Criticality Noted Date Comments Naproxen Sodium Bleeding High 11/29/2013 Pollen 12/03/2022 Seasonal Food (See Comments) Anaphylaxis High 04/20/2019 Hot peppers (oils) Kiwi Extract Anaphylaxis High 04/20/2019 documented as of this encounter (statuses as of 12/25/2023) Medications Medication Sig Dispensed Refills Start Date End Date Status ONETOUCH ULTRASOFT LANCETS MISCIndications:DM type 2, not at goal ([facility]) check FS 6 times daily 4 [...] Strip 5 02/17/2017 Active Insulin Infusion Pump ([employer] 630G INSULIN PUMP) KITIndications:Type 2 diabetes mellitus [...] as of this encounter (statuses as of 12/25/2023) Active Problems Problem Noted Date Diagnosed Date [...] as of this encounter (statuses as of 12/25/2023) Resolved Problems Problem Noted Date Diagnosed Date [...] Overview: Per Obesity Taxonomy Coronary atherosclerosis of [place] coronary artery 09/15/2008 10/03/2008 Malaise and fatigue [...] as of this encounter (statuses as of 12/25/2023) Immunizations Name Administration Dates Next Due COVID-19 mRNA, LNP-s, No Pre serve, 2-Dose Series ([employer]) 11/08/2020,10/11/2020 HEP A - Hepatitis A (Adult > 18 yrs) 04/11/2011, 09/20/2010 Hepatitis B, 20+ yrs 07/05/2015 Pneumococcal Conjugate Vacci ne, 20-valent ([id number]) 03/13/2023 Pneumococcal Polysaccharide PPV23 (Pneumovax) 02/19/2018,03/09/2007 Seasonal [...] this encounter Progress Notes * Danielle Anderson, [facility] - 12/25/2023 11:01 AM EDT Images from the original note were not included. Medication Therapy Disease Management [facility] - Diabetes Management Progress Note Carmen Tyson, identified by name and date of , is a 53 year old female being seen for diabetes management/education. Patient presents for return diabetic visit. And insulin pump download DIABETES: Current diabetic medications: DEC Metformin 1000mg once a day Ozempic 2 mg once weekly Jardiance 10 mg once daily eGFR 37 mL/min as of 12/16/23 [employer] ([id number]) Infusion Set: Quick Set Insulin: Novolin R Basal Rate 12a-8a 2.30 u/hr 8a-12a 4.00 u/hr Bolus: hardly using (was 15 units for breakfast and lunch/ 22 units for supper- 10 units for chocolate milk snack before bed) Carb ratio 1:3 Bolus wizard: hardly using ISF: 1:10 Blood Glucose Goals: 100-140 Active Insulin Time: 2 hours Medication Injection Site: Abdomen Lifestyle: Diet: unchanged Glucose Review/SMBG: Readings obtained from patient device Hypoglycemia: Does your blood sugar go below 70 mg/dL? Yes see above Hyperglycemia symptoms present: none Recent Labs Units 11/13/23 1007 07/23/23 1200 02/18/23 1326 HEMOGLOBIN A1C - [facility] % 6.3* 5.8* 5.7* Recent Labs Units 12/16/23 1110 11/13/23 1007 10/22/23 1153 ESTIMATED GLOMERULAR FILTRATION RATE - [facility] mL/min 37* 46* 48* CREATININE - [facility] mg/dL 1.7* 1.4* 1.3* HYPERTENSION: Patient on ACEi/ARB: currently on hold due to kidney function BP Readings from Last 3 Encounters: 11/25/23 104/72 10/08/23 101/68 10/05/23 108/57 Blood pressure at goal: yes HYPERLIPIDEMIA: Patient is taking moderate or high intensity statin: yes HEALTH MAINTENANCE REVIEW: Health Maintenance Due Topic Date Due COLONOSCOPY-EVERY 5 YRS AGES 18-100 06/27/2020 Diabetic Eye Exam 01/16/2023 COVID-19 Vaccine (3 - 2022- season) 2023 Zoster Vaccines (2 of 2) 06/14/2023 ASSESSMENT & PLAN: ICD-10-CM 1. Type 2 diabetes mellitus with hemoglobin A1c goal of less than 8.0% ([facility]) E11.9 Considerations: - activity limited by chronic low back pain - obtaining ozempic and novolin R via PAP - prefers to use local pharmacy instead of O - RENAL function - Dexcom supplied by [facility] Medical Glycemic control is stable but not at goal Patient agreeable to adjust medications as noted below. Basal settings decreased as glucose is falling in the afternoon ICR/fixed dose weakened as glucose is falling postprandially. ISF continued as glucose is correcting to goal range. Patient to SMBG at least 4 times daily, before each meal and at bedtime. Patient aware to contact clinic if any hypoglycemia before next visit. Reviewed rule of 15s. Reviewed appropriate management of hyperglycemia as noted in pump start documentation. MEDICATION CHANGES: yes, see below; preferred pharmacy: [facility] Diabetic Medications: Metformin 1000mg once a day Ozempic 2 mg once weekly Jardiance 10 mg once daily eGFR 37 mL/min as of 12/16/23 [employer] - [employer] ([id number]) Infusion Set: Quick Set Insulin: Novolin R Basal Rate 12a-8a 2.30 u/hr 8a-1pm 4.00 u/hr 1pm - 3 pm 3.7 u/hr (decreased) 3p - 12a 4.00 u/hr Bolus: using bolus wizard Carb ratio 1:4 (weakened) Bolus wizard: on and using ISF: 1:10 Blood Glucose Goals: 100-140 Active Insulin Time: 2 hours FOLLOW UP: Return to clinic in 6 weeks 02/11/2024 Danielle Anderson RPh Clinical Pharmacist - Safety Companion Medication Therapy Management Clinic 11/13/23, 11/13/23 documented in this encounter Plan of Treatment Upcoming Encounters Date Type Department Care Team (Latest Contact Info) Description 9:00 AM EDT Telemedicine Psychiatry, [address] [place] [address] Rj Mai MD [address] [place] [address] 4 12:00 PM EDT Immunization/Inje ction Hematology/Onco logy Treatment, [place] [address] [place] [phone] Nora, Chair 5 Hem Onc [facility] 200 [facility] [place] [address] 4 10:00 AM EDT Telemedicine Pharmacy, [facility] [place] [address] [address] [place] [address] 4 8:00 AM EDT Telemedicine Gastroenterolog y, [address] [address] Charlee Fields MD [address] [place] [address] 4 10:30 AM EDT Office Visit Pharmacy, [address] [address] 4 2:15 PM EDT Office Visit Hematology/Onco logy [facility] [place] 200 [facility] [place] [phone] Sunil Bourgeois MD 200 [facility] [place] [address] 4 12:20 PM EDT Office Visit Family Practice [facility] 132 [facility] [place] [address] Scott [place] MD [address] [place] [address] 4 12:30 PM EDT Office Visit Ophthalmology, [facility] [address] [place] [address] Rolan Self, DO [address] [place] [address] 4 11:15 AM EDT Hospital Encounter ENDO [facility], Endoscopy Room [facility] [address] [place] [phone] Aj Pruett, DO [address] [place] [address] 4 11:15 AM EDT - 4 11:45 AM EDT Surgery ENDO [facility], Endoscopy Room [facility] [address] [place] [address] Aj Pruett, DO [address] [place] [address] ESOPHAGOGASTRODUODENOSCOPY (EGD), FLEXIBLE, TRANSORAL, DIAGNOSTIC 4 1:40 PM EST Office Visit Nephrology, [facility] 200 [facility] [place], [place] [address] Jonathan Mathew MD 200 [facility] [place] [address] 5 8:00 AM EST Office Visit Family Practice [facility] [address] [place] [address] Scott [place] MD [address] [place] [address] Scheduled Procedures Name Priority Associated Diagnoses Date/Ti [...] this encounter Medical Devices Implanted Type Area Compensation Advisor Device Identifier Shelf Expiration Date Model / Serial / Lot Neurostimul Intellis Adaptiv - [id number] - [id number] Implanted:Qty: 1 on 08/22/2022 by Rafia Small MD at OR [facility] N/A: Spine Lumbar [employer] 06/21/2023 [id number] / [id number] / Description:battery Medtronic Lead Kit 60 Cm Implanted:Qty: 1 on 08/22/2022 by Rafia Small MD at OR [facility] N/A: Spine Lumbar 02/01/2026 [id number] / / [id number] Medtronic Lead Kit 60cm Implanted:Qty: 1 on 08/22/2022 by Rafia Small MD at OR [facility] N/A: Spine Lumbar 03/21/2026 [id number] / / [id number] Envelope Tyrx Med Antibacteril - [id number] Implanted:Qty: 1 on 08/22/2022 by Rafia Small MD at OR [facility] N/A: Spine Lumbar [employer] 03/10/2023 [id number] / / [id number] Hemostatic Clip Res 235cm - [id number] Implanted:Qty: 4 on 10/05/2023 by Aj Pruett DO at ENDOSCOPY [facility] : ENDOSCOPY 02/03/2026 [id number] / / Hemostatic Clip Res 235cm - [id number] Implanted:Qty: 1 on 10/05/2023 by Aj Pruett DO at ENDOSCOPY [facility] : ENDOSCOPY 02/02/2026 [id number] / / documented as of this encounter [...] Power of Attor narda? No Care Teams [place] Relationship Specialty Start Date End Date Scott [place] MD [address] [place] [address] PCP - General Family Medicine 08/03/18 documented as of this encounter
--- OUTSIDE RECORDS SUMMARY | 2024-02-02 08:51 | External Medical Summary ---
Author Name Unknown Address Unknown Organization K01:[facility] - [address] [facility] [place] [address] Laboratory Report Ordering Provider Test Date Status LUIS ANTONIO LEIVA 12/16/2023 11:10:34 Final Observation Date Value Abnormality Reference (Units ) Status SYNC LEUKOCYTES IN BLOOD BY AUTOMATED COUNT 12/16/2023 11:10:34 7.54 4.00-10.80 (K/uL) Final Segs 12/16/2023 11:10:34 71.0 40.0-75.0 (%) Final Lymphs % 12/16/2023 11:10:34 17.5 Below low normal 18.0-42.0 (%) Final Monos 12/16/2023 11:10:34 7.8 1.0-11.0 (%) Final Eosinophils 12/16/2023 11:10:34 2.4 0.0-6.0 (%) Final Basos 12/16/2023 11:10:34 0.9 0.0-2.0 (%) Final Immature Granulocyte, Percent 12/16/2023 11:10:34 0.4 0.0-2.0 (%) Final Absolute Segs 12/16/2023 11:10:34 5.35 1.80-7.70 (K/uL) Final Lymphs, absolute 12/16/2023 11:10:34 1.32 1.00-4.80 (K/ul) Final Monos, Abs 12/16/2023 11:10:34 0.59 0.00-1.10 (K/uL) Final Eos, Abs 12/16/2023 11:10:34 0.18 0.00-0.70 (K/uL) Final Basos, Abs 12/16/2023 11:10:34 0.07 0.00-0.20 (K/uL) Final Immature Granulocytes, Number 12/16/2023 11:10:34 0.03 0.00-0.20 (K/uL) Final Performing Location [facility] - [facility] [place] [address]
--- OUTSIDE RECORDS SUMMARY | 2024-02-02 08:51 | External Medical Summary | Summary of Care ---
Author Name Unknown Organization [facility] Address [address] [facility] [place] [address] Phone [phone] Care Team Providers Care Polysomnography Technologist Name Role Phone Scott Montoya MD Primary Care Provider + Reason for Visit * Reason Onset Date Comments Medication Refill 12/14/2023 Encounter Details Date Type Department Care Team (Late st Contact Info) Description 12/14/2023 Refill Nephrology, [facility] [address] [place] [address] Scott Montoya MD [address] [place] [place] [address] Type 2 diabetes mellitus with hemoglobin A1c goal of less than 8.0% ([facility]) Allergies Active Allergy Reactions Criticality Noted Date Comments Naproxen Sodium Bleeding High 11/29/2013 Pollen 12/03/2022 Seasonal Food (See Comments) Anaphylaxis High 04/20/2019 Hot peppers (oils) Kiwi Extract Anaphylaxis High 04/20/2019 documented as of this encounter (statuses as of 12/14/2023) Medications Medication Sig Dispensed Refills Start Date [...] Strip 5 7 Active Insulin Infusion Pump ([email or web address] 630G INSULIN PUMP) KITIndications:Type 2 diabetes mellitus with hemoglobin A1c goal of less than 8.0% ([facility]) Use as directed. 8 Active CPAP every [...] suspected opioid overdose. Seek immediate medical attention. [email or web address]?v=[email or web address] 1 Each 3 3 Active Atenolol 100 [...] OF BREATH 18 g 2 4 Active hydrOXYzine HCl 25 MG Oral Tablet Take 1 tab during the day every 4-6 hours as needed for anxiety and take 2 tabs at bedtime as needed for anxiety 450 Tablet 1 4 Active Furosemide 40 MG Oral Tablet (Lasix) Take 1 Tablet by mouth in the morning and 1 Tablet before bedtime. 4 Active Potassium Chloride Laura ER 20 MEQ Oral Tablet Extended Release Take 1 Tablet by mouth in the morning. 4 Active Magnesium Oxide -Mg Supplement 400 [...] 4 Active Baclofen 10 MG Oral Tablet (Lioresal)Indicamodeo ns:Back spasm Take 1 Tablet by mouth in the morning and 1 Tablet at noon and 1 Tablet before bedtime. 90 Tablet 3 4 Active Meclizine HCl 25 MG Oral Tablet (Antivert)Leo ns:Vertigo Take 1 Tablet by mouth 3 times a day as needed for Dizziness. 30 Tablet 1 4 Active Buprenorphine 5 MCG/HR Transdermal Patch Weekly (Butrans)Indication s:Controlled substance agreement signed,Chronic bilateral low back pain with sciatica, sciatica laterality unspecified,Chronic pain syndrome Place 1 Patch topically on the skin once a week. 4 Patch 4 Active Losartan Potassium 25 MG Oral Tablet (Cozaar)Indications :HTN, goal below 130/80 Take 1 Tablet by mouth every night at bedtime. 90 Tablet 1 4 Active Eszopiclone 2 MG Oral Tablet (Lunesta) Take 1 Tablet by mouth at bedtime. 30 Tablet 1 4 Active Empagliflozin 10 MG Oral Tablet (Jardiance)Tongti ons:Type 2 diabetes mellitus with hemoglobin A1c goal of less than 8.0% (HCC) Take 1 Tablet by mouth in the morning. Please get blood work completed the week of December 06. 30 Tablet 5 4 Active Empagliflozin 10 MG Oral Tablet (Jardiance)Indicati ons:Type 2 diabetes mellitus with hemoglobin A1c goal of less than 8.0% (HCC) Take 1 Tablet by mouth in the morning. Please get blood work completed the week of December 06. 30 Tablet 4 12/14/19 24 Discontinu ed(Refill) documented as of this encounter (statuses as of 12/14/2023) Active Problems Problem Noted Date Diagnosed Date [...] as of this encounter (statuses as of 12/14/2023) Resolved Problems Problem Noted Date Diagnosed Date [...] Obesity Taxonomy Coronary atherosclerosis of [place] coronary artery 09/15/2008 10/03/2008 Malaise and fatigue [...] as of this encounter (statuses as of 12/14/2023) Immunizations Name Administration Dates Next Due COVID-19 mRNA, LNP-s, No Pre serve, 2-Dose Series (AdTotum) 11/08/2020,10/11/2020 HEP A - Hepatitis A (Adult > 18 yrs) 04/11/2011, 09/20/2010 Hepatitis B, 20+ yrs 07/05/2015 Pneumococcal Conjugate Vacci ne, 20-valent ([id number]) 03/13/2023 Pneumococcal Polysaccharide PPV23 (Pneumovax) 02/19/2018,03/09/2007 Seasonal [...] No 10/07/2023 Does the household have a select specialty hospitalr source of income? (Household - for [...] Telephone Encounter - Scott Montoya MD - 12/14/2023 10:40 PM EDT Signed Prescriptions: Disp Refills Empagliflozin 10 MG Oral Tablet (Jardiance)30 Tab*5 Sig: Take 1 Tablet by mouth in the morning. Please get blood work completed the week of December 06. Authorizing Provider: SCOTT MONTOYA * Telephone Encounter - Zora Nunn LPN - 12/14/2023 10:15 AM EDTPending Prescriptions: Disp Refills Empagliflozin 10 MG Oral Tablet (Jardiance)30 Tab*0 Sig: Take 1 Tablet by mouth in the morning. Please get blood work completed the week of December 06. * Telephone Encounter - Zora Nunn LPN - 12/14/2023 10:10 AM EDT See note from 10/28/[address] Priyanka Montoya is to decide if pt is to continue Will send to PCP documented in this encounter Plan of Treatment Upcoming Encounters Date Type Department Care Team (Latest Contact Info) Description 4 11:00 AM EDT Laboratory Laboratory, [place] [address] [place] [address] [facility] [address] [place] [address] 4 11:00 AM EDT Office Visit Pharmacy, [place] [address] [place] [address] [facility] [address] [place] [address] 4 9:00 AM EDT Telemedicine Psychiatry, [address] [place] [address] Rj Mai MD [address] [place] [address] 4 12:00 PM EDT Immunization/Inje ction Hematology/Onco logy Treatment, [place] [address] [place] [phone] Nurse, Med [address] [place] [address] [place] [address] 4 10:00 AM EDT Telemedicine Pharmacy, [address] [place] [address] [facility] 132 [facility] [place] [address] 4 8:00 AM EDT Telemedicine Gastroenterolog y, [address] [address] Charlee Fields MD [address] [place] [address] 4 2:15 PM EDT Office Visit Hematology/Onco logy [facility] [place] [address] [facility] [place] [address] Sunil Bourgeois MD [address] [place], [place] [address] 4 12:20 PM EDT Office Visit [facility] [address] [place] [address] Scott Montoya MD [address] [place], [place] [address] 4 12:30 PM EDT Office Visit Ophthalmology, [facility] [address] [facility] [place] [address] Rolan Self, DO [address] [place] [address] 4 11:15 AM EDT Hospital Encounter ENDO [facility], Endoscopy Room [facility] [address] [place] [place] [address] Aj Pruett, DO [address] [place] [address] 4 11:15 AM EDT - 4 11:45 AM EDT Surgery ENDO [facility], Endoscopy Room [facility] [address] [place] [place] [address] Aj Pruett, DO [address] [place] [address] ESOPHAGOGASTRODUODENOSCOPY (EGD), FLEXIBLE, TRANSORAL, DIAGNOSTIC 4 1:40 PM EST Office Visit Nephrology, [facility] Mel[facility] [address] [place] [address] Jonathan Mathew MD [address] [place] [address] 5 8:00 AM EST Office Visit Family Practice [facility] [address] [place] [address] Scott Montoya MD [address] [place] [address] Scheduled Procedures Name Priority Associated Diagnoses Date/Ti [...] encounter Medical Devices Implanted Type Area Medical Research Tech Device Identifier Shelf Expiration Date Model / Serial / Lot Neurostimul Intellis Adaptiv - [id number] - [id number] Implanted:Qty: 1 on 08/22/2022 by Rafia Small MD at OR [facility] N/A: Spine Lumbar [employer] 06/21/2023 [id number] / [id number] / Description:battery Medtronic Lead Kit 60 Cm Implanted:Qty: 1 on 08/22/2022 by Rafia Small MD at OR [facility] N/A: Spine Lumbar 02/01/2026 [id number] / / [id number] Medtronic Lead Kit 60cm Implanted:Qty: 1 on 08/22/2022 by Rafia Small MD at OR [facility] N/A: Spine Lumbar 03/21/2026 [id number] / / [id number] Envelope Tyrx Med Antibacteril - [id number] Implanted:Qty: 1 on 08/22/2022 by Rafia Small MD at OR [facility] N/A: Spine Lumbar [employer] 03/10/2023 [id number] / / [id number] Hemostatic Clip Res 235cm - [id number] Implanted:Qty: 4 on 10/05/2023 by Aj Pruett DO at ENDOSCOPY [facility] : ENDOSCOPY 02/03/2026 [id number] / / Hemostatic Clip Res 235cm - [id number] Implanted:Qty: 1 on 10/05/2023 by Aj Pruett DO at ENDOSCOPY [facility] : ENDOSCOPY 02/02/2026 [id number] / / documented as of this encounter [...] Power of Attor narda? No Care Teams Polysomnography Technologist Relationship Specialty Start Date End Date Scott Montoya MD [address] [place] [address] PCP - General Family Medicine 08/03/18 documented as of this encounter
--- OUTSIDE RECORDS SUMMARY | 2024-02-02 08:51 | External Medical Summary | Summary of Care ---
Author Name Unknown Organization [facility] Address 100 [facility] [place] [address] Phone [phone] Care Team Providers Care Mortuary Technician Name Role Phone Scott Weldon MD Primary Care Provider + Reason for Visit * Reason Onset Date Comments Other 12/04/2023 DME order Encounter Details Date Type Department Care Team (Late st Contact Info) Description 12/04/[address] [facility] [place] [address] Zaida Horan CRNP [address] [facility] [place] [address] Other (DME order ) Allergies Active Allergy Reactions Criticality Noted Date Comments Naproxen Sodium Bleeding High 11/29/2013 Pollen 12/03/2022 Seasonal Food (See Comments) Anaphylaxis High 04/20/2019 Hot peppers (oils) Kiwi Extract Anaphylaxis High 04/20/2019 documented as of this encounter (statuses as of 12/04/2023) Medications Medication Sig Dispensed Refills Start Date [...] Strip 5 02/17/2017 Active Insulin Infusion Pump (MINIMProxToMe 630G INSULIN PUMP) KITIndications:Type 2 diabetes mellitus with hemoglobin A1c goal of less than 8.0% ([facility]) Use as directed. 07/30/2017 Active CPAP [...] suspected opioid overdose. Seek immediate medical attention. [email or web address]://[email or web address]?v=v26cDa [email or web address] 1 Each 3 11/27/2022 Active [...] for Dizziness. 30 Tablet 1 11/17/2023 Active Buprenorphine 5 MCG/HR Transdermal Patch Weekly (Butrans)Indication s:Controlled substance agreement signed,Chronic bilateral low back pain with sciatica, sciatica laterality unspecified,Chronic pain syndrome Place 1 Patch topically on the skin once a week. 4 Patch 11/17/2023 Active Losartan Potassium 25 MG Oral Tablet (Cozaar)Indications :HTN, goal below 130/80 Take 1 Tablet by mouth every night at bedtime. 90 Tablet 1 11/16/2023 Active Empagliflozin 10 MG Oral Tablet (Jardiance)Indicati ons:Type 2 diabetes mellitus with hemoglobin A1c goal of less than 8.0% ([facility]) Take 1 Tablet by mouth in the morning. Please get blood work completed the week of December 06. 30 Tablet 11/16/2023 Active Eszopiclone 2 MG Oral Tablet (Lunesta) Take 1 Tablet by mouth at bedtime. 30 Tablet 1 11/30/2023 Active documented as of this encounter (statuses as of 12/04/2023) Active Problems Problem Noted Date Diagnosed Date [...] as of this encounter (statuses as of 12/04/2023) Resolved Problems Problem Noted Date Diagnosed Date [...] Overview: Per Obesity Taxonomy Coronary atherosclerosis of [place] coronary artery 09/15/2008 10/03/2008 Malaise and fatigue [...] as of this encounter (statuses as of 12/04/2023) Immunizations Name Administration Dates Next Due COVID-19 mRNA, LNP-s, No Pre serve, 2-Dose Series (Directed Edge) 11/08/2020,10/11/2020 HEP A - Hepatitis A (Adult > 18 yrs) 04/11/2011, 09/20/2010 Hepatitis B, 20+ yrs 07/05/2015 Pneumococcal Conjugate Vacci ne, 20-valent ([id number]) 03/13/2023 Pneumococcal Polysaccharide PPV23 (Pneumovax) 02/19/2018,03/09/2007 Seasonal [...] encounter Miscellaneous Notes * Telephone Encounter - Carmina Graves OSA - 12/04/2023 2:51 PM EDT DME order for settings change and ongoing supplies submitted to [email or web address]. documented in this encounter Plan of Treatment Upcoming Encounters Date Type Department Care Team (Latest Contact Info) Description 4 11:00 AM EDT Office Visit Pharmacy, [address] [address] [place] [address] [place] [address] 4 9:00 AM EDT Telemedicine Psychiatry, [address] [place] [address] Rj Mai MD [address] [place] [address] 4 12:00 PM EDT Immunization/Inje ction Hematology/Onco logy Treatment, [place] 200 [place] [address] Nurse, Med 200 [facility] [place] [address] 4 10:00 AM EDT Telemedicine Pharmacy, [address] [address] [facility] [address] [place] [address] 4 8:00 AM EDT Telemedicine Gastroenterolog y, [address] [address] Charlee Fields MD [address] [place], [place] [address] 4 2:15 PM EDT Office Visit Hematology/[facility]co logy [facility] 200 [place] [address] Sunil Bourgeois MD [address] [place] [address] 4 12:20 PM EDT Office Visit [facility] [address] [place], [place] [address] Scott Weldon MD [address] [place] [address] 4 12:30 PM EDT Office Visit Ophthalmology, [facility] [address] [place] [address] Rolan Self, DO [address] [place] [address] 4 11:15 AM EDT Hospital Encounter ENDO [facility], Endoscopy Room [facility] [address] [place] [address] Aj Pruett, DO [address] [place] [address] 4 11:15 AM EDT - 4 11:45 AM EDT Surgery ENDO [facility], Endoscopy Room [facility] [address] [place] [phone] Aj Pruett, DO [address] [place] [address] ESOPHAGOGASTRODUODENOSCOPY (EGD), FLEXIBLE, TRANSORAL, DIAGNOSTIC 4 1:40 PM EST Office Visit Nephrology, [place] Mel[place] [address] [place] [address] [address] Jonathan Mathew MD [address] [place] [address] 5 8:00 AM EST Office Visit [facility] [address] [place] [address] Scott Weldon MD [address] [place] [address] Scheduled Procedures Name Priority Associated Diagnoses Date/Ti [...] COVID-19 Vaccine ( season) 2023 11/08/2020, 10/11/2020 Depression Monitoring 03/13/2024 03/13/2023 Diabetic Foot Exam [...] Additional history exists Colorectal Cancer Screening 10/04/2028 Influenza Vaccine (FLU shot) Completed 03/13/2023, 03/01/2021, 02/28/2020, Additional history exists Pneumococcal Vaccine: Pediatrics (0 to 5 Years) and At-Risk Patients (6 to 64 Years) Completed 03/13/2023, 02/19/2018, 03/09/2007 RETIRED - COLONOSCOPY-EVERY 5 YRS AGES 18-100 Discontinued 10/05/2023, 10/05/2023, 06/27/2015, Additional history exists Zoster Vaccines Completed 11/25/2023, 04/19/2023 GARDASIL-HPV IMMUNIZATION SERIES Aged Out No longer eligible based on patient's age to complete this topic MENINGOCOCCAL (MENACTRA/MENVEO) Aged Out No longer eligible based on patient's age to complete this topic documented as of this encounter Medical Devices Implanted Type Area Cloth Measurer Machine Device Identifier Shelf Expiration Date Model / Serial / Lot Neurostimul Intellis Adaptiv - [id number] - [id number] Implanted:Qty: 1 on 08/22/2022 by Rafia Small MD at OR [facility] N/A: Spine Lumbar [employer] 06/21/2023 [id number] / [id number] / Description:battery Medtronic Lead Kit 60 Cm Implanted:Qty: 1 on 08/22/2022 by Rafia Small MD at OR [facility] N/A: Spine Lumbar 02/01/2026 [id number] / / [id number] Medtronic Lead Kit 60cm Implanted:Qty: 1 on 08/22/2022 by Rafia Small MD at OR [facility] N/A: Spine Lumbar 03/21/2026 [id number] / / [id number] Envelope Tyrx Med Antibacteril - [id number] Implanted:Qty: 1 on 08/22/2022 by Rafia Small MD at OR [facility] N/A: Spine Lumbar [employer] 03/10/2023 [id number] / / [id number] Hemostatic Clip Res 235cm - [id number] Implanted:Qty: 4 on 10/05/2023 by Aj Pruett, DO at ENDOSCOPY [facility] : ENDOSCOPY 02/03/2026 [id number] / / Hemostatic Clip Res 235cm - [id number] Implanted:Qty: 1 on 10/05/2023 by Aj Pruett, DO at ENDOSCOPY [facility] : ENDOSCOPY 02/02/2026 [id number] / / documented as of this encounter [...] Power of Attor narda? No Care Teams Mortuary Technician Relationship Specialty Start Date End Date Scott Weldon MD [address] [place] [address] PCP - General Family Medicine 08/03/18 documented as of this encounter
--- OUTSIDE RECORDS SUMMARY | 2024-02-02 08:51 | External Medical Summary ---
Author Name Unknown Address Unknown Organization K01:LABORATORY [facility] - [facility] [address] [place] [address] Laboratory Report Ordering Provider Test Date Status LUIS ANTONIO LEIVA 12/16/2023 11:10:34 Final Observation Date Value Abnormality Reference (Units ) Status WBC, Total 12/16/2023 11:10:34 7.54 4.00-10.80 (K/uL) Final RBC 12/16/2023 11:10:34 4.22 3.85-5.15 (M/uL) Final Hemoglobin 12/16/2023 11:10:34 11.8 Below low normal 12.0-15.3 (g/dL) Final HCT 12/16/2023 11:10:34 38.5 36.0-45.2 (%) Final MCV 12/16/2023 11:10:34 91.2 81.5-97.5 (fL) Final MCH 12/16/2023 11:10:34 28.0 27.0-34.0 (pg) Final MCHC 12/16/2023 11:10:34 30.6 32.0-36.0 (g/dL) Final RDW 12/16/2023 11:10:34 14.5 11.5-15.5 (%) Final Platelets 12/16/2023 11:10:34 97 Below low normal 140-400 (K/uL) Final MPV 12/16/2023 11:10:34 10.7 6.6-11.1 (fL) Final Nucleated erythrocytes/100 leukocytes [Ratio] in Blood by Automated count 12/16/2023 11:10:34 0 <=0 (/100 WBCs) Final Performing Location LABORATORY [facility] [place] - [address] [place] [address]
--- OUTSIDE RECORDS SUMMARY | 2024-02-02 08:51 | External Medical Summary | Summary of Care ---
Author Name Unknown Organization [facility] Address [address] [facility] [place] [address] Phone [phone] Care Team Providers Care Mechanical Field Engineer Name Role Phone cSott Montoya MD Primary Care Provider + Reason for Visit * Reason Onset Date Comments Medication Refill 12/13/2023 Encounter Details Date Type Department Care Team (Late st Contact Info) Description 12/13/2023 Refill Family Practice [facility] [address] [place] [phone] Scott Montoya MD [address] [place] [phone] Controlled substance agreement signed; Chronic bilateral low back pain with sciatica, sciatica laterality unspecified; Chronic pain syndrome Allergies Active Allergy Reactions Criticality Noted Date Comments Naproxen Sodium Bleeding High 11/29/2013 Pollen 12/03/2022 Seasonal Food (See Comments) Anaphylaxis High 04/20/2019 Hot peppers (oils) Kiwi Extract Anaphylaxis High 04/20/2019 documented as of this encounter (statuses as of 12/15/2023) Medications Medication Sig Dispensed Refills Start Date [...] suspected opioid overdose. Seek immediate medical attention. [email or web address]/[email or web address]?v=[email or web address] 1 Each 3 3 Active Atenolol 100 [...] at bedtime. 30 Tablet 1 4 Active Buprenorphine 5 [...] skin once a week. 4 Patch 4 12/13/19 24 Discontinu ed(Refill) documented as of this encounter (statuses as of 12/15/2023) Active Problems Problem Noted Date Diagnosed Date [...] as of this encounter (statuses as of 12/15/2023) Resolved Problems Problem Noted Date Diagnosed Date [...] Overview: Per Obesity Taxonomy Coronary atherosclerosis of [place] coronary artery 09/15/2008 10/03/2008 Malaise and [...] as of this encounter (statuses as of 12/15/2023) Immunizations Name Administration Dates Next Due COVID-19 mRNA, LNP-s, No Pre serve, 2-Dose Series (Dataslide) 11/08/2020,10/11/2020 HEP A - Hepatitis A (Adult > 18 yrs) 04/11/2011, 09/20/2010 Hepatitis B, 20+ yrs 07/05/2015 Pneumococcal Conjugate Vacci ne, 20-valent ([id number]) 03/13/2023 Pneumococcal Polysaccharide PPV23 (Pneumovax) 02/19/2018,03/09/2007 Seasonal [...] Telephone Encounter - Scott Montoya MD - 12/15/2023 9:56 PM EDTSigned Prescriptions: Disp Refills Buprenorphine 5 MCG/HR Transdermal Patch W*4 Patch0 Sig: Place 1 Patch topically on the skin once a week. Authorizing Provider: SCOTT MONTOYA * Telephone Encounter - Napoleon May [facility] - 12/15/2023 8:34 AM EDTPending Prescriptions: Disp Refills Buprenorphine 5 MCG/HR Transdermal Patch W*4 Patch0 Sig: Place 1 Patch topically on the skin once a week. * Telephone Encounter - Napoleon May [facility] - 12/15/2023 8:34 AM EDT I have reviewed the patients controlled substance dispensing history in the Prescription Drug Monitoring Program in compliance with the [facility] regulations before prescribing a controlled substance. PDMP checked on 12/15/2023. Pending Prescriptions: Disp Refills Buprenorphine 5 MCG/HR Transdermal Patch *4 Patch0 Sig: Place 1 Patch topically on the skin once a week. Last Visit: 11/25/2023 (in office), 09/08/2022 (telemedicine) Next Visit: 03/16/2024 Date medication was last filled: 11/18/2023 Date medication is due for refill: 12/15/2023 Pharmacy: [id number] [address] [facility] Is this request for a controlled [...] Results Review. Please approve if appropriate. Thanks, Napoleon May Pharm.D. Clinical Pharmacist [facility] ([facility]) [phone] 12/15/2023, 8:34 AM documented in this encounter Plan of Treatment Upcoming Encounters Date Type Department Care Team (Latest Contact Info) Description 4 11:00 AM EDT Laboratory [facility], [place] [address] [facility] [phone] Jay[place] [address] [place] [facility] [place] [address] 4 11:00 AM EDT Office Visit Pharmacy, [place] [facility] [address] [place] [address] 4 9:00 AM EDT Telemedicine Psychiatry, [facility] [address] [place] [address] Rj Mai MD [address] [place] [address] 4 12:00 PM EDT Immunization/Inje ction Hematology/Onco logy Treatment, [place] [address] [facility], [place] [phone] Nurse, Med [address] [place] [address] 4 10:00 AM EDT Telemedicine Pharmacy, [facility] [address] [facility] [place] [address] [facility] [address] [place] [address] 4 8:00 AM EDT Telemedicine Gastroenterolog y, [address] [address] Charlee Fields MD [address] [place] [address] 4 2:15 PM EDT Office Visit Hematology/Onco logy [facility] [place] [address] [facility] [place] [phone] Sunil Bourgeois MD [address] [place] [address] 4 12:20 PM EDT Office Visit Family Practice [facility] [address] [facility] [place] [address] Scott Montoya MD [address] [place] [address] 4 12:30 PM EDT Office Visit Ophthalmology, [facility] [address] [place] [address] Rolan Self, DO [address] [place] [address] 4 11:15 AM EDT Hospital Encounter ENDO [facility], Endoscopy Room [facility] [address] [place] [phone] Aj Pruett, DO [address] [place] [address] 4 11:15 AM EDT - 4 11:45 AM EDT Surgery ENDO [facility], Endoscopy Room [facility] [address] [place] [phone] Aj Pruett, DO [address] [place] [address] ESOPHAGOGASTRODUODENOSCOPY (EGD), FLEXIBLE, TRANSORAL, DIAGNOSTIC 4 1:40 PM EST [facility] [address] [place] [address] Jonathan Mathew MD [address] [place] [address] 5 8:00 AM EST Office Visit Family Practice [facility] [address] [place] [address] Scott Montoya MD [address] [place] [address] Scheduled Procedures Name Priority Associated Diagnoses Date/Ti [...] this encounter Medical Devices Implanted Type Area Picker Box Operator Device Identifier Shelf Expiration Date Model / Serial / Lot Neurostimul Intellis Adaptiv - [id number] - [id number] Implanted:Qty: 1 on 08/22/2022 by Rafia Small MD at OR [facility] N/A: Spine Lumbar [employer] 06/21/2023 [id number] / [id number] / Description:battery Medtronic Lead Kit 60 Cm Implanted:Qty: 1 on 08/22/2022 by Rafia Small MD at OR [facility] N/A: Spine Lumbar 02/01/2026 [id number] / / [id number] Medtronic Lead Kit 60cm Implanted:Qty: 1 on 08/22/2022 by Rafia Small MD at OR [facility] N/A: Spine Lumbar 03/21/2026 [id number] / / [id number] Envelope Tyrx Med Antibacteril - [id number] Implanted:Qty: 1 on 08/22/2022 by Rafia Small MD at OR [facility] N/A: Spine Lumbar [employer] 03/10/2023 [id number] / / [id number] Hemostatic Clip Res 235cm - [id number] Implanted:Qty: 4 on 10/05/2023 by Aj Pruett DO at ENDOSCOPY [facility] [employer] : ENDOSCOPY 02/03/2026 [id number] / / Hemostatic Clip Res 235cm - [id number] Implanted:Qty: 1 on 10/05/2023 by Aj Pruett DO at ENDOSCOPY [facility] : ENDOSCOPY 02/02/2026 [id number] / / documented as of this encounter [...] Power of Attor narda? No Care Teams Mechanical Field Engineer Relationship Specialty Start Date End Date Scott Montoya MD [address] [place] [address] PCP - General Family Medicine 08/03/18 documented as of this encounter
--- OUTSIDE RECORDS SUMMARY | 2024-02-02 08:51 | External Medical Summary ---
Author Name Unknown Address Unknown Organization K01:LABORATORY [facility] [place] - [address] [place] [address] Laboratory Report Ordering Provider Test Date Status LUIS ANTONIO LEIVA 12/16/2023 11:10:34 Final Observation Date Value Abnormality Reference (Units ) Status Ferritin 12/16/2023 11:10:34 53 13-150 (ng /mL) Final Postmenopausal women have hi gher ferritin levels than pre-menopausal women. The above reference interval is based on pre-menopausal women. Performing Location [facility]ORY [facility] - [address] [place] [address]
--- OUTSIDE RECORDS SUMMARY | 2024-02-02 08:51 | External Medical Summary ---
Author Name Unknown Address Unknown Organization K01:[facility]ATORY [facility] [place] - [address] [place] [address] Laboratory Report Ordering Provider Test Date Status LUIS ANTONIO LEIVA 12/16/2023 11:10:34 Final Observation Date Value Abnormality Reference (Units ) Status Iron 12/16/2023 11:10:34 52 33-151 (ug/dL) Final Iron-binding capacity 12/16/2023 11:10:34 361 250-425 (ug/dL) Final Transferrin Sat % 12/16/2023 11:10:34 14 Below low normal 15-55 (%) Final Performing Location LABORATORY [facility] [place] - [address] [place] [address]
--- OUTSIDE RECORDS SUMMARY | 2024-02-02 08:51 | External Medical Summary ---
Author Name Unknown Address Unknown Organization K01:[facility]ATORY [place] [address] [address] [place] [address] Laboratory Report Ordering Provider Test Date Status GUS KENNEDY 12/16/2023 11:10:34 Final Observation Date Value Abnormality Reference (Units ) Status BUN 12/16/2023 11:10:34 24 Above high normal 6-20 (mg/dL) Final Creatinine 12/16/2023 11:10:34 1.7 Above high normal 0.5-1.0 (mg/dL) Final Glomerular filtration rate/1.73 sq M.predicted [Volume Rate/Area] in Serum, Plasma or Blood by Creatinine-based formula (CKD-EPI) 12/16/2023 11:10:34 37 Below low normal >=60 (mL/min) Final eGFR is calculated based on the CKD-EPI 2020 equation Sodium 12/16/2023 11:10:34 144 135-146 (m mol/L) Final Potassium 12/16/2023 11:10:34 4.3 3.5-5.1 (m mol/L) Final Cl 12/16/2023 11:10:34 102 98-107 (mm ol/L) Final CO2 12/16/2023 11:10:34 27 22-32 (mmo l/L) Final Anion gap 12/16/2023 11:10:34 15 7-15 (mmol /L) Final Glucose 12/16/2023 11:10:34 157 Above high normal 70 -120 (mg/dL) Final Calcium 12/16/2023 11:10:34 8.9 8.4-10.2 ( mg/dL) Final Performing Location LABORATORY [place] [address] [place] [address]
--- OUTSIDE RECORDS SUMMARY | 2024-02-02 08:52 | External Medical Summary | Summary of Care ---
Author Name Unknown Organization [facility] Address [address] [facility] [place] [address] Phone [phone] Care Team Providers Care Air Twister Winder Name Role Phone Scott Weldon MD Primary Care Provider + Reason for Visit * Reason Comments NEW PATIENT * Evaluate & Treat - Unlimited Visits (Within 10 days (routine)) - Authorized Specialty Diagnoses / Procedures Referred By Contac t Referred To Contact Sleep Medicine / Sleep Disorders Diagnoses DONNA on CPAP Scott Weldon MD [address] [place] [address] Referral ID Status Reason Start Date Expiration Date Visits Requested Visits Authorized [id number] Authorized Specialty Services Required 09/01/2023 2 2 Encounter Details Date Type Department Care Team (Late st Contact Info) Description 12/04/2023 9:30 AM EDT Telemedicine Sleep Disorders Ctr [facility] [address] [place] [phone] Zaiad Horan CRNP [address] [place] [address] Obstructive sleep apnea* Allergies Active Allergy Reactions Criticality Noted Date [...] Unit 3 12/31/19 16 Active Glucose Blood (Ovo Cosmico CONTOUR NEXT TEST) STRP Use to test blood sugar up to 6 times per day. E11.9 These are the ONLY test strips patient can use with insulin pump 200 Strip 5 02/18/20 17 Active Insulin Infusion Pump ([employer] 630G INSULIN PUMP) KITIndications:Typ e 2 diabetes mellitus with hemoglobin A1c goal of less than 8.0% ([facility]) Use as directed. 07/30/19 18 Active CPAP [...] suspected opioid overdose. Seek immediate medical attention. [email or web address]?[email or web address] 1 Each 3 11/28/19 23 Active Atenolol [...] OF BREATH 18 g 2 09/16/19 24 Active hydrOXYzine HCl 25 MG Oral Tablet Take 1 tab during the day every 4-6 hours as needed for anxiety and take 2 tabs at bedtime as needed for anxiety 450 Tablet 1 10/12/19 24 Active Furosemide 40 MG Oral Tablet (Lasix) Take 1 Tablet by mouth in the morning and 1 Tablet before bedtime. 10/13/19 24 Active Potassium Chloride Laura ER 20 MEQ Oral Tablet Extended Release Take 1 Tablet by mouth in the morning. 10/13/19 24 Active Magnesium Oxide -Mg Supplement [...] Dizziness. 30 Tablet 1 11/17/19 24 Active Buprenorphine 5 MCG/HR Transdermal Patch Weekly (Butrans)Indicatio ns:Controlled substance agreement signed,Chronic bilateral low back pain with sciatica, sciatica laterality unspecified,Chroni c pain syndrome Place 1 Patch topically on the skin once a week. 4 Patch 11/17/19 24 Active Losartan Potassium 25 MG Oral Tablet (Cozaar)Indication s:HTN, goal below 130/80 Take 1 Tablet by mouth every night at bedtime. 90 Tablet 1 11/16/19 24 Active Empagliflozin 10 MG Oral Tablet (Jardiance)Indicat ions:Type 2 diabetes mellitus with hemoglobin A1c goal of less than 8.0% ([facility]) Take 1 Tablet by mouth in the morning. Please get blood work completed the week of December 06. 30 Tablet 11/16/19 24 Active Eszopiclone 2 MG Oral Tablet (Lunesta) Take 1 Tablet by mouth at bedtime. 30 Tablet 1 11/30/19 24 Active Sucralfate 1 GM Oral Tablet (Carafate) Take 1 Tablet by mouth in the morning and 1 Tablet before bedtime. 120 Tablet 10/05/19 24 024 Discontinued documented as of this [...] Taxonomy Coronary atherosclerosis of [place] coronary artery 09/15/2008 10/03/2008 Malaise and fatigue [...] mRNA, LNP-s, No Pre serve, 2-Dose Series (RevoLaze) 11/08/2020,10/11/2020 HEP A - Hepatitis A (Adult > 18 yrs) 04/11/2011, 09/20/2010 Hepatitis B, 20+ yrs 07/05/2015 Pneumococcal Conjugate Vacci ne, 20-valent ([id number]) 03/13/2023 Pneumococcal Polysaccharide PPV23 (Pneumovax) 02/19/2018,03/09/2007 Seasonal [...] on file Are you (or your family) rbuen eless or worried that you might be [...] Sign Reading Time Taken Comments Blood Pressure - - Pulse - - Temperature - - Respiratory Rate - - Oxygen Saturation - - Inhaled Oxygen Concentration - - Weight - - Height 162.6 cm (5' 4") 12/03/2023 2:23 PM EDT Body Mass Index - - documented in [...] as of this encounter Progress Notes * Zaida Horan CRNP - 12/04/2023 9:27 AM EDT Patient location: HOME. I was in a hospital or clinic location. After connecting through televideo,patient was verified with two unique identifiers. Patient (or authorized legal chemical sales representative) was then informed that this was a Telemedicine visit and being conducted confidentially over secure lines. Methods to assure confidentiality were taken. Patient acknowledged consent and understanding of pr ivacy and security of the Telemedicine visit. The patient agreed to participate. [facility] SLEEP MEDICINE CONSULTATION Mrs. Carmen Tyson is a 53 year old female seen at the request of Scott Weldon MD for evaluationand management of severe DONNA treated on CPAP. Medical history includes HTN, CVA, T2DM, liver cirrhosis, portal hypertension, chronic pain with stimulator, BMI 39.6. -PSG 2008: AHI 26 -> unable to tolerate PAP -Split PSG 04/25/2017 (wt 230 lb): AHI 44 (107 H), SpO2 patricia 85%; CPAP 9 x32 mins (25 mins REM) all non-supine, SpO2 patricia 88% -On CPAP 9 cmH2O since 2016 Carmen continues use of CPAP during overnight sleep noting ongoing benefit with use. She has not been able to get supplies for some time and her current head gear isn't staying attached. This is causing the mask to come off during use and impacting her sleep and daytime energy. Compliance Data: Report date endin days ending 11/30/2023 % total days used: 80 % days used > 4 hours: 60 Average hours per day used: 5 hours 41 mins Large leak: 2 mins AHI: 3.4 Equipment: DME Provider: [employer] Device: [employer] Device/settin cmH20 Interface Type: FFM Humidifier: used On treatment, the patient reports ("+" indicates reports, "-" indicates denies): (-) Snoring (+) Mouth breathing (-) Acid reflux at night (-) Nocturia (-) Morning headaches (-) Non refreshing sleep- mostly (-) Drowsy driving (+) Unintentional dozing or sleepy with sedentary activity (-) RLS symptoms: unusual sensation in arms/legs noted predominantly in evening, partially alleviated by movement and aggravated by immobility (-) Twitching and jerking of arms and legs while asleep (-) Parasomnias (somnambulism, dream enactment behavior, nightmares, nocturnal groaning, other) Bedroom environment: Lives with . Sleeps in bed propped up with 5 pillows in bed apart from . Mostly on her back. Electronics: may or may not have tv on Climate: cool, not sweaty Lighting: night lights Noise: cats Clock checking: no Pets: 2 cats, disruptive Sleep Schedule: Work: disabled Hypnotics/[employer] suppressants: eszopiclone 2 mg (recent dose increase), trazodone 200 mg, lyrica 100 mg, buprenorphine patch, baclofen, hydroxyzine Eszopiclone dose was increased recently as she was struggling to fall asleep and get back to sleep Using melatonin as needed, if she had been more active that day resulting in more pain Night time medications taken around 3678-9748 Routine prior to bed: reading or watching tv in living room while stimulator is charging, usually falls asleep from 5578-9196 until 0000. In bed 0000 Time to fall asleep Not long Nighttime awakenings/ Reason 2-3x Wake after sleep onset brief Awake Time/Alarm Perceived total sleep time 0800, out of bed 8 hours in bed, 2 on couch prior Naps Tries not to Hayden Sleepiness Scale Question 12/03/2023 2:26 PM EDT - Filed by Madonna Reyes LPN What is the chance you will doze off in the following situation? Sitting and reading High chance of dozing Watching TV Slight chance of dozing Sitting inactive in a public place, such as a theater or meeting Slight chance of dozing As a passenger in a car for an hour without a break Slight chance of dozing Lying down to rest in the afternoon when circumstances permit Slight chance of dozing When sitting and talking to someone No chance of dozing When sitting quietly after lunch without alcohol No chance of dozing In a car, while stopped for a few minutes in traffic No chance of dozing Score (range: 0 - 24) 7 Functional Outcomes Of Sleep Question 12/03/2023 2:28 PM EDT - Filed by Madonna Reyes LPN Please complete the following questions. Do you have difficulty concentrating because you are sleepy or tired? Yes, a little Do you have difficulty remembering things because you are sleepy or tired? Yes, a little Do you have difficulty operating a motor vehicle for short distances (less than 100 miles) because you become sleepy? No Do you have difficulty operating a motor vehicle for long distances (more than 100 miles) because you become sleepy? No Do you have difficulty visiting family or friends in their home because you become sleepy or tired?No Has your relationship with family, friends, or work colleagues been affected because you are sleepyor tired? No Do you have difficulty watching a movie or video because you become sleepy or tired? Yes, a little Do you have difficulty being as active as you want to be in the evening because you are tired or sleepy? Yes, a little Do you have difficulty being as active as you want to be in the morning because you are tired or sleepy? Yes, a little Has your mood been affected because you are sleepy or tired? Yes, a little Score (range: 10 - 40) 34 Medical History: Patient Active Problem List Diagnosis Organic sleep disorder DONNA on CPAP Dyslipidemia, goal LDL below 100 Gastroesophageal reflux disease without esophagitis HTN, goal below 130/80 Vitamin D deficiency Type 2 diabetes mellitus with hemoglobin A1c goal of less than 8.0% (HCC) Psychogenic nonepileptic seizure Lumbago with sciatica Controlled substance agreement signed Chronic pain syndrome Cirrhosis of liver without ascites (HCC) Well adult exam Insulin pump in place Gastroparesis Encounter for care related to vascular access port Thrombocytopenia (HCC) Diabetic gastroparalysis (HCC) Portal hypertension (HCC) Liver masses Left hemiplegia (HCC) Generalized anxiety disorder Recurrent major depressive disorder, in partial remission (HCC) Diabetic polyneuropathy associated with type 2 diabetes mellitus (HCC) Severe obesity (BMI 35.0-39.9) with comorbidity (HCC) Encounter for venous access device care Diabetes mellitus with background retinopathy (HCC) Iron deficiency anemia Major depressive disorder, recurrent episode, moderate (HCC) PTSD (post-traumatic stress disorder) History of 2019 novel coronavirus disease (COVID-19) Diabetic retinopathy of both eyes without macular edema associated with type 2 diabetes mellitus (HCC) Hemiplegia and 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 (HCC) Esophageal varices without bleeding (HCC) Type II diabetes mellitus with neurological manifestations (HCC) Hyperlipidemia Stroke (HCC) No personal history of head trauma resulting in LOC. No personal history of seizures; no nocturnal stereotypical movements. Surgical History: Past Surgical History: Procedure Laterality Date COLONOSCOPY, DIAGNOSTIC (RECTUM) 06/06/2010 normal colon exam repeat in 5 years COLONOSCOPY, DIAGNOSTIC (RECTUM) 06/27/2015 retained stool, repeat/COLONOSCOPY FLEXIBLE PROXIMAL DIAGNOSTIC performed by Aj Pruett DO atENDOSCOPY [facility] COLONOSCOPY, DIAGNOSTIC (RECTUM) 10/05/2023 hemorrhoids/biopsies show hyperplastic and inflammatory tissue/recall 5 years/COLONOSCOPY FLEXIBLE PROXIMAL DIAGNOSTIC performed by Aj Pruett DO at ENDOSCOPY [facility] EGD, FLEXIBLE, DIAGNOSTIC 01/22/2011 UPPER GI ENDOSCOPY DIAGNOSTIC performed by STACEY BENNETT [place] [facility] [place]GD, FLEXIBLE, DIAGNOSTIC 01/19/2014 portal hypertensive gastropathy, benign gastric polyp, repeat 2 yrs/done @ [facility] EGD, FLEXIBLE, DIAGNOSTIC 02/08/2016 normal bx, portal hypertensive gastropathy, repeat 1.5 yrs/[facility] EGD, FLEXIBLE, DIAGNOSTIC 08/25/2017 retained food, repeat 1 yr/ESOPHAGOGASTRODUODENOSCOPY (EGD), FLEXIBLE, TRANSORAL, DIAGNOSTIC performed by Aj Pruett DO at ENDOSCOPY [facility] EGD, FLEXIBLE, DIAGNOSTIC 12/15/2018 esophageal varices, gastritis, gastric polyp, repeat 1 yr/ESOPHAGOGASTRODUODENOSCOPY (EGD), FLEXIBLE, TRANSORAL, DIAGNOSTIC performed by Aj Pruett DO at ENDOSCOPY [facility] EGD, FLEXIBLE, DIAGNOSTIC 01/31/2020 fundic polyps, eso varices, portal hypertensive gastropathy, repeat 1 yr / ESOPHAGOGASTRODUODENOSCOPY (EGD), FLEXIBLE, TRANSORAL, DIAGNOSTIC performed by Aj Pruett DO at ENDOSCOPY [facility] EGD, FLEXIBLE, DIAGNOSTIC 10/09/2022 grade I esophageal varices/portal hypertension gastropathy/medium amount of food in stomach/ESOPHAGOGASTRODUODENOSCOPY (EGD), FLEXIBLE, TRANSORAL, DIAGNOSTIC performed by Aj Pruett DO at ENDOSCOPY [facility] EGD, FLEXIBLE, DIAGNOSTIC 10/05/2023 grade II esophageal varices/portal hypertensive gastropathy/multiple gastric polyps, resected and retrieved, clips placed/biopsies show fundic polyps/repeat 6 months/ESOPHAGOGASTRODUODENOSCOPY (EGD),FLEXIBLE, TRANSORAL, DIAGNOSTIC performed by Aj Pruett DO at ENDOSCOPY [facility] EGD, FLEXIBLE, W/BIOPSY 07/27/2012 small fundic stomach polyp/inflammation r/t reflux-repeat EGD in 1 yr EGD, W/ENDOSCOPIC US 01/22/2011 UPPER GI ENDOSCOPY ENDOSCOPIC ULTRASOUND performed by STACEY BENENTT at [place] [facility] EVAL NEUROSTIM PULSE GEN, W/ REPROGRAM N/A 06/27/2022 NEUROSTIMULATOR PULSE GENERATOR/ TRANSMITTER, WITH INTRAOPERATIVE OR SUBSEQUENT PROGRAMMING performed by Rafia Small MD at OR [facility] EVAL NEUROSTIM PULSE GEN, W/ REPROGRAM N/A 08/22/2022 NEUROSTIMULATOR PULSE GENERATOR/ TRANSMITTER, WITH INTRAOPERATIVE OR SUBSEQUENT PROGRAMMING performed by Rafia Small MD at OR [facility] HYSTEROSCOPY,DIAGNOSTIC 07/16/2006 NovaSure endomentrial ablation IMPLANT EPIDURAL NEUROELECTRODES N/A 06/27/2022 PERCUTANEOUS IMPLANTATION NEUROSTIMULATOR EPIDURAL performed by Rafia Small MD at OR [facility] IMPLANT EPIDURAL NEUROELECTRODES N/A 08/22/2022 PERCUTANEOUS IMPLANTATION NEUROSTIMULATOR EPIDURAL performed by Rafia Small MD at OR [facility] IMPLANT SPINAL NEURORECEIVER N/A 08/22/2022 INSERTION OR REPLACEMENT SPINAL NEUROSTIMULATOR GENERATOR performed by Rafia Small MD atOR [facility] INJECT DX/THER SUBSTANCE INTERLAMINAR LUMBAR/SACRAL W IMAGE GUIDE 04/13/2017 INJECTION SPINE LUMBAR OR SACRAL performed by Rene Kate DO at OR [facility] INJECT DX/THER SUBSTANCE INTERLAMINAR LUMBAR/SACRAL W IMAGE GUIDE 12/10/2017 INJECTION SPINE LUMBAR OR SACRAL performed by Rene Kate DO at OR [facility] INSER TUNN ACC DEV;5 YRS/OLDER 03/24/2013 03/24/2013 at [facility] [place], Placement of A-Port central venous access catheter with port Dr. Renate MCGOWAN CT GUIDED NEEDLE BIOPSY 07/11/2010 CT GUIDED NEEDLE ASPIRATION BIOPSY performed by JAMILA SAWANT at [place] [facility] LIGATE/CUT OVIDUCT(S) 07/1995 Denies history of sinus, jaw, palate or tonsil surgery Current Medications: Current Outpatient Medications Medication Sig Dispense Refill Eszopiclone 2 MG Oral Tablet (Lunesta) Take 1 Tablet by mouth at bedtime. 30 Tablet 1 Zoster Vac Recomb Adjuvanted 50 MCG/0.5ML Intramuscular Suspension Reconstituted (Shingrix) Inject 0.5 mL into a large muscle now and repeat dose in 60 to 180 days 1 Each 1 Buprenorphine 5 MCG/HR Transdermal Patch Weekly (Butrans) Place 1 Patch topically on the skin once a week. 4 Patch 0 Meclizine HCl 25 MG Oral Tablet (Antivert) Take 1 Tablet by mouth 3 times a day as needed for Dizziness. 30 Tablet 1 Empagliflozin 10 MG Oral Tablet (Jardiance) Take 1 Tablet by mouth in the morning. Please get bloodwork completed the week of December 06. 30 Tablet 0 Losartan Potassium 25 MG Oral Tablet (Cozaar) Take 1 Tablet by mouth every night at bedtime. 90 Tablet 1 Baclofen 10 MG Oral Tablet (Lioresal) Take 1 Tablet by mouth in the morning and 1 Tablet at noon and 1 Tablet before bedtime. 90 Tablet 3 Magnesium Oxide -Mg Supplement 400 (240 Mg) MG Oral Tablet (Mag-Ox) Take 1 Tablet by mouth in the morning. 90 Tablet 3 Metoclopramide HCl 5 MG Oral Tablet (Reglan) Take 1 Tablet by mouth in the morning and 1 Tablet at noon and 1 Tablet in the evening. Take before meals. If needed for nausea. 30 Tablet 0 Furosemide 40 MG Oral Tablet (Lasix) Take 1 Tablet by mouth in the morning and 1 Tablet before bedtime. Potassium Chloride Laura ER 20 MEQ Oral Tablet Extended Release Take 1 Tablet by mouth in the morning. hydrOXYzine HCl 25 MG Oral Tablet Take 1 tab during the day every 4-6 hours as needed for anxiety and take 2 tabs at bedtime as needed for anxiety 450 Tablet 1 Albuterol Sulfate HFA 108 (90 Base) MCG/ACT Inhalation Aerosol Solution INHALE 2 PUFFS BY MOUTH EVERY 6 HOURS NEEDED FOR SHORTNESS OF BREATH 18 g 2 Atorvastatin Calcium 40 MG Oral Tablet (Lipitor) TAKE 1 TABLET BY MOUTH EVERY DAY IN THE MORNING (Patient taking differently: Take 1 Tablet by mouth at bedtime.) 90 Tablet 3 Pantoprazole Sodium 40 MG Oral Tablet Delayed Release (Protonix) Take 1 Tablet by mouth in the morning. 90 Tablet 3 Escitalopram Oxalate 20 MG Oral Tablet (Lexapro) Take 1 Tablet by mouth in the morning. 90 Tablet 1 Ondansetron 8 MG Oral Tablet Disintegrating (Zofran) PLACE 1 TABLET ON TONGUE AND DISSOLVE EVERY 8 HOURS NEEDED FOR NAUSEA 30 Tablet 0 Ozempic (2 MG/DOSE) 8 MG/3ML Subcutaneous Solution Pen-injector (Semaglutide (2 MG/DOSE)) 2 mg once. Ozempic weekly on Sundays traZODone HCl 100 MG Oral Tablet (Desyrel) [...] ONCE DAILY VIA PUMP 60 mL 0 Loratadine 10 MG Oral Tablet (Claritin) TAKE 1 TABLET BY MOUTH IN THE MORNING FOR ALLERGIES. (Patient taking differently: Take 1 Tablet by mouth in the morning. For allergies..) 90 Tablet 1 Atenolol 100 MG Oral Tablet (Tenormin) TAKE 1 TABLET BY MOUTH TWICE A DAY 180 Tablet 3 Naloxone HCl 4 MG/0.1ML Nasal Liquid (Narcan Nasal) Administer 1 spray into 1 nostril for suspectedopioid overdose. Seek immediate medical attention. https://www.youtube.com/[email or web address]?[email or web address] 1 Each 3 Dicyclomine HCl 20 MG Oral Tablet (Bentyl) Take 1 Tablet by mouth 2 times a day as needed for Pain or Cramping. 180 Tablet 3 Glucagon Emergency 1 MG Injection Kit As directed 1 Kit 3 CPAP every night at bedtime. Insulin Infusion Pump (EasySize 630G INSULIN PUMP) KIT Use as directed. Glucose Blood (SYLVIA CONTOUR NEXT TEST) STRP [...] 5 Pre-filled Pen Syringe Dosing Unit 3 ONETOUCH ULTRASOFT LANCETS MISC check FS 6 times daily 4 Box 5 Sucralfate 1 GM Oral Tablet (Carafate) Take 1 Tablet by mouth in the morning and 1 Tablet before bedtime. 120 Tablet 0 No current facility-administered medications for this visit. Social History: Caffeine: 1 can soda/am Alcohol use: denies Nicotine use: denies Illicit drug use: denies Routine exercise: tries to walk daily "as much as I can" Family History: Family history of sleep related disorders: brother with DONNA Review of Systems HENT: Negative for congestion and postnasal drip. Respiratory: Negative for shortness of breath. Cardiovascular: Positive for leg swelling. Negative for chest pain. Musculoskeletal: Positive for arthralgias, back pain and neck pain. Impacts sleep quality causing her to reposition Allergic/Immunologic: Positive for environmental allergies (seasonal changes). Physical Exam: BMI 39.57 kg/m BP Readings from Last 3 Encounters: 11/25/23 104/72 10/08/23 101/68 10/05/23 108/57 Constitutional: No acute distress, accompanied by self Neuro: Alert, oriented, fluent/clear speech Psych: Appropriate mood and affect. Assessment/Plan: Severe obstructive sleep apnea based on AHI criteria Currently with low CPAP compliance with mask coming off during sleep due to worn out headgear Total sleep time is approximately 10 hours with average PAP use <6 hours -Discussed the pathophysiology, implications on short- and long-term health of DONNA -Compliant, therapeutic and benefiting from PAP but there is room for improvement -Resupplies ordered -Pressures adjusted to autoPAP 9-14 cm H2O, ramp to start at 6 over 15 minutes -Humidifier settings adjusted -Increase use of PAP to include all periods of sleep was encouraged given the severity of her sleepapnea and medical history. Advised to avoid sleeping without PAP. -Multiple [employer] FOR[employer] suppressants prescribed with airway not being protected with PAP for 4+ hours a night. At risk for respiratory suppression and . She is agreeable to changing her routine and placing CPAP earlier in the evening. -Routine cleaning and change of supplies as needed was encouraged. -Continue to avoid engaging in activities that require full alertness when feeling sleepy or tired. Follow-up in 6 months [facility] I spent a total of Greater than 55 mins (exact time 60 mins) on the date of service in preparation,delivery, and documentation of the care provided to Carmen Tyson excluding any time spent in theperformance of separately billed services. documented in this encounter Plan of Treatment Upcoming Encounters Date Type Department Care Team (Latest Contact Info) Description 4 11:00 AM EDT Office Visit Pharmacy, [address] [address] 4 9:00 AM EDT Telemedicine Psychiatry, [address] [place] [address] Rj Mai MD [address] [place] [address] 4 12:00 PM EDT Immunization/Inje ction Hematology/Onco logy Treatment, [place] [address] [place] [id number] Nurse, Med [address] [facility] [place] [address] 4 10:00 AM EDT Telemedicine Pharmacy, [facility] [address] [facility] [address] [facility] [address] [facility] [address] 4 8:00 AM EDT Telemedicine Gastroenterolog y, [facility] [address] [place] [address] Charlee Fields MD [address] [facility], [place] [address] 4 2:15 PM EDT Office Visit [facility] [address] [place] [phone] Sunil Bourgeois MD [address] [place] [address] 4 12:20 PM EDT Office Visit Family Practice [facility] [address] [place] [address] Scott Weldon MD [address] [place] [address] 4 12:30 PM EDT Office Visit Ophthalmology, [facility] [address] [place] [address] Rolan Self, DO [address] [place] [address] 4 11:15 AM EDT Hospital Encounter [facility]O [facility], Endoscopy Room [facility] [address] [place] [id number] Aj Pruett, DO [address] [place] [address] 4 11:15 AM EDT - 4 11:45 AM EDT Surgery ENDO [facility], Endoscopy Room [facility] [address] [place] [phone] Aj Pruett, DO [address] [place] [address] ESOPHAGOGASTRODUODENOSCOPY (EGD), FLEXIBLE, TRANSORAL, DIAGNOSTIC 4 1:40 PM EST Office Visit Nephrology, [facility] [address] [facility] [place] [address] Jonathan Mathew MD [address] [facility] [place] [address] 5 8:00 AM EST Office Visit [facility] [address] [place] [address] Scott Weldon MD [address] [place] [address] Scheduled Procedures Name Priority Associated Diagnoses Date/Ti [...] this encounter Medical Devices Implanted Type Area Exercise Instructor Device Identifier Shelf Expiration Date Model / Serial / Lot Neurostimul Intellis Adaptiv - [id number] - [id number] Implanted:Qty: 1 on 08/22/2022 by Rafia Small MD at OR [facility] N/A: Spine Lumbar [employer] 06/21/2023 [id number] / [id number] / Description:battery Medtronic Lead Kit 60 Cm Implanted:Qty: 1 on 08/22/2022 by Rafia Small MD at OR [facility] N/A: Spine Lumbar 02/01/2026 [id number] / / [id number] Medtronic Lead Kit 60cm Implanted:Qty: 1 on 08/22/2022 by Rafia Small MD at OR [facility] N/A: Spine Lumbar 03/21/2026 [id number] / / [id number] Envelope Tyrx Med Antibacteril - [id number] Implanted:Qty: 1 on 08/22/2022 by Rafia Small MD at OR [facility] N/A: Spine Lumbar [employer] 03/10/2023 [id number] / / [id number] Hemostatic Clip Res 235cm - [id number] Implanted:Qty: 4 on 10/05/2023 by Aj Pruett DO at ENDOSCOPY [facility] : ENDOSCOPY 02/03/2026 [id number] / / Hemostatic Clip Res 235cm - [id number] Implanted:Qty: 1 on 10/05/2023 by Aj Pruett DO at ENDOSCOPY [facility] : ENDOSCOPY 02/02/2026 [id number] / / documented as of this encounter Visit Diagnoses Diagnosis Obstructive sleep apnea- Primary Obstructive sleep apnea (adult) (pediatric) Portal hypertensive gastropathy (HCC) Other specified disorder [...] Power of Attor narda? No Care Teams Air Twister Winder Relationship Specialty Start Date End Date Scott Weldon MD [address] [place] [address] PCP - General Family Medicine 08/03/18 documented as of this encounter
--- OUTSIDE RECORDS SUMMARY | 2024-02-02 08:52 | External Medical Summary | Summary of Care ---
Author Name Unknown Organization [facility] Address [address] [place] [address] Phone [phone] Care Team Providers Care Rayon Tester Name Role Phone Scott Weldon MD Primary Care Provider + Reason for Visit * Reason Onset Date Comments Medication Refill 11/28/2023 Encounter Details Date Type Department Care Team (Late st Contact Info) Description 11/28/2023 Refill Psychiatry, [address] [address] Kandace Avina MD [address] [place] [address] Allergies Active Allergy Reactions Criticality Noted Date Comments Naproxen Sodium Bleeding High 11/29/2013 Pollen 12/03/2022 Seasonal Food (See Comments) Anaphylaxis High 04/20/2019 Hot peppers (oils) Kiwi Extract Anaphylaxis High 04/20/2019 documented as of this encounter (statuses as of 11/30/2023) Medications Medication Sig Dispensed Refills Start Date [...] suspected opioid overdose. Seek immediate medical attention. [email or web address] 1 Each 3 3 Active Atenolol 100 [...] OF BREATH 18 g 2 4 Active Sucralfate 1 GM Oral Tablet (Carafate) Take 1 Tablet by mouth in the morning and 1 Tablet before bedtime. 120 Tablet 4 Active hydrOXYzine HCl 25 MG Oral [...] of less than 8.0% ([facility]) Take 1 Tablet by mouth in the morning. Please get blood work completed the week of December 06. 30 Tablet 4 Active Eszopiclone 2 MG Oral Tablet (Lunesta) Take 1 Tablet by mouth at bedtime. 30 Tablet 1 4 Active Eszopiclone 2 MG Oral Tablet (Lunesta) Take 1 Tablet by mouth at bedtime. 30 Tablet 1 4 11/28/19 24 Discontinu ed(Refill) documented as of this encounter (statuses as of 11/30/2023) Active Problems Problem Noted Date Diagnosed Date [...] as of this encounter (statuses as of 11/30/2023) Resolved Problems Problem Noted Date Diagnosed Date [...] Overview: Per Obesity Taxonomy Coronary atherosclerosis of [place] coronary artery 09/15/2008 10/03/2008 Malaise and fatigue [...] as of this encounter (statuses as of 11/30/2023) Immunizations Name Administration Dates Next Due COVID-19 mRNA, LNP-s, No Pre serve, 2-Dose Series (Process Relations) 11/08/2020,10/11/2020 HEP A - Hepatitis A (Adult > 18 yrs) 04/11/2011, 09/20/2010 Hepatitis B, 20+ yrs 07/05/2015 Pneumococcal Conjugate Vacci ne, 20-valent ([id number]) 03/13/2023 Pneumococcal Polysaccharide PPV23 (Pneumovax) 02/19/2018,03/09/2007 Seasonal [...] Telephone Encounter - Kandace Avina MD - 11/30/2023 1:04 PM EDT Signed Prescriptions: Disp Refills Eszopiclone 2 MG Oral Tablet (Lunesta) 30 Tab*1 Sig: Take 1 Tablet by mouth at bedtime.Authorizing Provider: KANDACE AVINA * Telephone Encounter - Jesse Gruber CRNP - 11/30/2023 12:46 PM EDTPending Prescriptions: Disp Refills Eszopiclone 2 MG Oral Tablet (Lunesta) 30 Tab*1 Sig: Take 1 Tablet by mouth at bedtime. * Telephone Encounter - Kayla Lea LPN - 11/30/2023 8:46 AM EDTPending Prescriptions: Disp Refills Eszopiclone 2 MG Oral Tablet (Lunesta) 30 Tab*1 Sig: Take 1 Tablet by mouth at bedtime. * Telephone Encounter - Kayla Lea LPN - 11/30/2023 8:45 AM EDT Refill request from patient (Cristal) for Lunesta. Medication last filled on 09/28/23 with 1 refills. Patient last seen on 10/07/23 with return appointment scheduled for 12/30/23. Patient had 1 cancelled appointments and 0 NO SHOW appointments. documented in this encounter Plan of Treatment Upcoming Encounters Date Type Department Care Team (Latest Contact Info) Description 4 9:30 AM EDT Telemedicine Sleep Disorders Ctr [facility] [place] 132 [facility] [place] [address] Zaida Horan CRNP 132 [facility] [place] [address] 4 11:00 AM EDT Office Visit Pharmacy, [address] [address] [facility] [place] [address] 4 9:00 AM EDT Telemedicine Psychiatry, [address] [place] [address] Kandace Avina MD [address] [place] [address] 4 12:00 PM EDT Immunization/Inje ction Hematology/Onco logy Treatment, [place] 200 [facility] [place] [phone] Nurse, Med 200 [facility] [place] [address] 4 10:00 AM EDT Telemedicine Pharmacy, [address] [place] [address] [place] [facility] [address] [place] [address] 4 8:00 AM EDT Telemedicine Gastroenterolog y, [facility] [address] [place] [address] Charlee Fields MD [address] [place] [address] 4 2:15 PM EDT Office Visit Hematology/Onco logy [facility] [address] [place] [phone] Sunil Bourgeois MD [address] [place] [address] 4 12:20 PM EDT Office Visit Family Practice [facility] [address] [place] [address] Scott Weldon MD [address] [place] [address] 4 12:30 PM EDT Office Visit Ophthalmology, [facility] [address] [place] [address] Rolan Self, DO 21 [facility] [place] [address] 4 11:15 AM EDT Hospital Encounter ENDO [facility], Endoscopy Room [facility] [address] [place] [phone] Aj Pruett, DO [address] [place] [address] 4 11:15 AM EDT - 4 11:45 AM EDT Surgery ENDO [facility], Endoscopy Room [facility] [address] [place] [address] Aj Pruett DO [address] [place] [address] ESOPHAGOGASTRODUODENOSCOPY (EGD), FLEXIBLE, TRANSORAL, DIAGNOSTIC 4 1:40 PM EST Office Visit Nephrology, [facility] 200 [facility] [place], [place] [address] Jonathan Mathew MD 200 [facility] [place] [address] 5 8:00 AM EST Office Visit [facility] [address] [place] [address] Scott Weldon MD [address] [place] [address] Scheduled Procedures Name Priority Associated Diagnoses Date/Ti [...] this encounter Medical Devices Implanted Type Area Veterinarian Laboratory Animal Care Device Identifier Shelf Expiration Date Model / Serial / Lot Neurostimul Intellis Adaptiv - [id number] - [id number] Implanted:Qty: 1 on 08/22/2022 by Rafia Small MD at OR [facility] N/A: Spine Lumbar [employer] 06/21/2023 [id number] / [id number] / Description:battery Medtronic Lead Kit 60 Cm Implanted:Qty: 1 on 08/22/2022 by Rafia Small MD at OR [facility] N/A: Spine Lumbar 02/01/2026 [id number] / / [id number] Medtronic Lead Kit 60cm Implanted:Qty: 1 on 08/22/2022 by Rafia Small MD at OR [facility] N/A: Spine Lumbar 03/21/2026 [id number] / / [id number] Envelope Tyrx Med Antibacteril - [id number] Implanted:Qty: 1 on 08/22/2022 by Rafia Small MD at OR [facility] N/A: Spine Lumbar [employer] 03/10/2023 [id number] / / [id number] Hemostatic Clip Res 235cm - [id number] Implanted:Qty: 4 on 10/05/2023 by Aj Pruett DO at ENDOSCOPY [facility] : ENDOSCOPY 02/03/2026 [id number] / / Hemostatic Clip Res 235cm - [id number] Implanted:Qty: 1 on 10/05/2023 by Aj Pruett DO at ENDOSCOPY [facility] : ENDOSCOPY 02/02/2026 [id number] / / documented as of this encounter [...] Power of Attor narda? No Care Teams Rayon Tester Relationship Specialty Start Date End Date Scott Weldon MD [address] [place] [address] PCP - General Family Medicine 08/03/18 documented as of this encounter
--- OUTSIDE RECORDS SUMMARY | 2024-02-02 08:52 | External Medical Summary | Summary of Care ---
Author Name Unknown Organization [facility] Address [address] [facility] [place] [address] Phone [phone] Care Team Providers Care Qa Software Test Engineer Name Role Phone Scott Weldon MD Primary Care Provider + Reason for Visit * Reason Comments eRx-Medication Refill Encounter Details Date Type Department Care Team (Late st Contact Info) Description 11/28/2023 Refill Nephrology, [facility] [address] [place] [address] Scott Weldon MD [address] [place] [address] Type 2 diabetes mellitus with hemoglobin A1c goal of less than 8.0% ([facility]) Allergies Active Allergy Reactions Criticality Noted Date [...] Strip 5 02/17/2017 Active Insulin Infusion Pump (MINIMAAMPP 630G INSULIN PUMP) KITIndications:Type 2 diabetes mellitus with hemoglobin A1c goal of less than 8.0% ([facility]) Use as directed. 07/30/2017 Active CPAP every [...] suspected opioid overdose. Seek immediate medical attention. [email or web address] 1 Each 3 11/27/2022 Active [...] OF BREATH 18 g 2 09/16/2023 Active Eszopiclone 2 MG Oral Tablet (Lunesta) Take 1 Tablet by mouth at bedtime. 30 Tablet 1 09/28/2023 Active Sucralfate 1 GM Oral Tablet (Carafate) Take 1 Tablet by mouth in the morning and 1 Tablet before bedtime. 120 Tablet 10/05/2023 Active hydrOXYzine HCl 25 MG Oral Tablet [...] of December 06. 30 Tablet 11/16/2023 Active documented as of this encounter (statuses [...] Steatohepatitis, non-alcoholic 08/28/2010 09/15/2014 OBESITY, BMI= 36.56 308/16/2010 01/23/2012 OBESITY, BMI= 36.56 08/01/10 08/01/2010 01/23/2012 [...] Overview: Per Obesity Taxonomy Coronary atherosclerosis of [place] coronary artery 09/15/2008 10/03/2008 Malaise and fatigue [...] mRNA, LNP-s, No Pre serve, 2-Dose Series (Zipdial) 11/08/2020,10/11/2020 HEP A - Hepatitis A (Adult > 18 yrs) 04/11/2011, 09/20/2010 Hepatitis B, 20+ yrs 07/05/2015 Pneumococcal Conjugate Vacci ne, 20-valent (Obclnrj44) 03/13/2023 Pneumococcal Polysaccharide PPV23 (Pneumovax) 02/19/2018,03/09/2007 Seasonal [...] encounter Miscellaneous Notes * Telephone Encounter - Carmen Mondragon RN - 11/30/2023 8:28 AM EDTRefused Prescriptions: Disp Refills Jardiance 10 MG Oral Tablet (Empagliflozin)30 Tab*0 Sig: TAKE 1TABLET BY MOUTH IN THE MORNING. PLEASE GET BLOOD WORK COMPLETED THE WEEK OF DECEMBER 06.Refused By: Eloise MONDRAGON for Refusal: Managed by another physician documented in this encounter Plan of Treatment Upcoming Encounters Date Type Department Care Team (Latest Contact Info) Description 4 9:30 AM EDT Telemedicine Sleep Disorders Ctr Keith Rose [place] 132 [facility] [place] [phone] Zaida Horan CRNP 132 [facility] [place] [address] 4 11:00 AM EDT Office Visit Pharmacy, [address] [address] [facility] [address] [place] [address] 4 9:00 AM EDT Telemedicine Psychiatry, [facility] 200 [place] [address] Rj Mai MD [address] [place] [address] 4 12:00 PM EDT Immunization/Inje ction Hematology/Onco logy Treatment, [place] 200 [facility] [place] Rodgers [phone] Nurse, Med 200 [place] [address] 4 10:00 AM EDT Telemedicine Pharmacy, [facility] 132 [facility] [place] [address] [place] [facility] 132 [facility] [place] [address] 4 8:00 AM EDT Telemedicine Gastroenterolog y, [facility] [address] [place] [address] Charlee Fields MD [address] [place] [address] 4 2:15 PM EDT Office Visit Hematology/Onco logy [facility] [address] [place] [phone] Sunil Bourgeois MD [address] [place] [address] 4 12:20 PM EDT Office Visit Family Practice [facility] 132 [facility] [place] [address] Scott Weldon MD 132 [facility] [place] [address] 4 12:30 PM EDT Office Visit Ophthalmology, [facility] 132 [facility] [place] [address] Rolan Self, DO 21 [facility] [place] [address] 4 11:15 AM EDT Hospital Encounter ENDO [facility], Endoscopy Room [facility] [address] [place]i [phone] Aj Pruett, DO [address] [place] [address] 4 11:15 AM EDT - 4 11:45 AM EDT Surgery ENDO [facility], Endoscopy Room [facility] [address] [place] [address] Aj Pruett DO [address] [place] [address] ESOPHAGOGASTRODUODENOSCOPY (EGD), FLEXIBLE, TRANSORAL, DIAGNOSTIC 4 1:40 PM EST Office Visit Nephrology, [facility] 200 [facility] [place] [address] Jonathan Mathew MD [address] [place] [address] 5 8:00 AM EST Office Visit [facility] [address] [place] [address] Scott Weldon MD [address] [place] [address] Scheduled Procedures Name Priority Associated Diagnoses Date/Ti [...] this encounter Medical Devices Implanted Type Area Knife Blade Polisher Device Identifier Shelf Expiration Date Model / Serial / Lot Neurostimul Intellis Adaptiv - [id number] - [id number] Implanted:Qty: 1 on 08/22/2022 by Rafia Small MD at OR [facility] N/A: Spine Lumbar [employer] 06/21/2023 [id number] / [id number] / Description:battery Medtronic Lead Kit 60 Cm Implanted:Qty: 1 on 08/22/2022 by Rafia Small MD at OR [facility] N/A: Spine Lumbar 02/01/2026 [id number] / / [id number] Medtronic Lead Kit 60cm Implanted:Qty: 1 on 08/22/2022 by Rafia Small MD at OR [facility] N/A: Spine Lumbar 03/21/2026 [id number] / / [id number] Envelope Tyrx Med Antibacteril - [id number] Implanted:Qty: 1 on 08/22/2022 by Rafia Small MD at OR [facility] N/A: Spine Lumbar [employer] 03/10/2023 [id number] / / [id number] Hemostatic Clip Res 235cm - [id number] Implanted:Qty: 4 on 10/05/2023 by Aj Pruett DO at ENDOSCOPY [facility] : ENDOSCOPY 02/03/2026 [id number] / / Hemostatic Clip Res 235cm - [id number] Implanted:Qty: 1 on 10/05/2023 by Aj Pruett DO at ENDOSCOPY [facility] : ENDOSCOPY 02/02/2026 [id number] / / documented as of this encounter [...] Power of Attor narda? No Care Teams Qa Software Test Engineer Relationship Specialty Start Date End Date Scott Weldon MD [address] [place] [address] PCP - General Family Medicine 08/03/18 documented as of this encounter
--- OUTSIDE RECORDS SUMMARY | 2024-02-02 08:52 | External Medical Summary | Summary of Care ---
Author Name Unknown Organization [facility] Address 100 [facility] [place] [address] Phone [phone] Care Team Providers Care Wholesale Diamond Broker Name Role Phone Scott Weldon MD Primary Care Provider + Encounter Details Date Type Department Care Team (Late st Contact Info) Description 11/30/2023 Population Health External Data Unspecified Department Allergies Active Allergy Reactions Criticality Noted Date Comments Naproxen Sodium Bleeding High 11/29/2013 Pollen 12/03/2022 Seasonal Food (See Comments) Anaphylaxis High 04/20/2019 Hot peppers (oils) Kiwi Extract Anaphylaxis High 04/20/2019 documented as of this encounter (statuses as of 12/01/2023) Medications Medication Sig Dispensed Refills Start Date [...] less than 8.0% ([facility]) Use as directed. 07/30/2017 Active CPAP [...] suspected opioid overdose. Seek immediate medical attention. [email or web address] 1 Each 3 11/27/2022 Active [...] ([facility]) INJECT UP TO 200 UNITS SUBCUTANEOSULY [...] OF BREATH 18 g 2 09/16/2023 Active Sucralfate 1 GM Oral Tablet (Carafate) [...] as of this encounter (statuses as of 12/01/2023) Active Problems Problem Noted Date Diagnosed Date [...] as of this encounter (statuses as of 12/01/2023) Resolved Problems Problem Noted Date Diagnosed Date [...] Taxonomy Coronary atherosclerosis of [place] coronary artery 09/15/2008 10/03/2008 Malaise and fatigue [...] as of this encounter (statuses as of 12/01/2023) Immunizations Name Administration Dates Next Due COVID-19 mRNA, LNP-s, No Pre serve, 2-Dose Series (PayLease) 11/08/2020,10/11/2020 HEP A - Hepatitis A (Adult > 18 yrs) 04/11/2011, 09/20/2010 Hepatitis B, 20+ yrs 07/05/2015 Pneumococcal Conjugate Vacci ne, 20-valent (Cepydef40) 03/13/2023 Pneumococcal Polysaccharide PPV23 (Pneumovax) 02/19/2018,03/09/2007 Seasonal [...] AM EDT [facility]icine [facility] [place] [phone] Zaida Horan CRNP [address] [place] [address] 4 11:00 AM EDT Office Visit Pharmacy, [place] [address] [place] [address] [place] [address] [place] [address] 4 9:00 AM EDT Telemedicine Psychiatry, [facility] 200 [facility] [place] [address] Rj Mai MD [address] [place] [address] 4 12:00 PM EDT Immunization/Inje ction Hematology/Onco logy Treatment, [place] [address] [place] [phone] Nurse, Med 200 [facility] [place] [address] 4 10:00 AM EDT Telemedicine Pharmacy, [facility] [address] [place] [address] [facility] 132 [facility] [address] 4 8:00 AM EDT Telemedicine Gastroenterolog [address] [address] Charlee Fields MD [address] [place] [address] 4 2:15 PM EDT Office Visit Hematology/Onco logy [facility] [place] 200 [facility] [place] [phone] Sunil Bourgeois MD 200 [facility] [place] [address] 4 12:20 PM EDT Office Visit Family Practice [place], [place] [address] [place] [address] Scott Weldon MD [address] [place] [address] 4 12:30 PM EDT Office Visit Ophthalmology, [facility] [address] [place], [place] [address] Rolan Self, DO [address] [place] [address] 4 11:15 AM EDT Hospital Encounter ENDO [facility], Endoscopy Room [facility] [address] [place] [phone] Aj Pruett, DO [address] [place] [address] 4 11:15 AM EDT - 4 11:45 AM EDT Surgery ENDO [facility], Endoscopy Room [facility] [address] [place] [address] Aj Pruett, DO [address] [place] [address] ESOPHAGOGASTRODUODENOSCOPY (EGD), FLEXIBLE, TRANSORAL, DIAGNOSTIC 4 1:40 PM EST Office Visit Nephrology, [facility] [address] [place], [place] [address] Jonathan Mathew MD [address] [place] [address] 5 8:00 AM EST Office Visit [facility] [address] [place] [address] Scott Weldon MD [address] [place] [address] Scheduled Procedures Name Priority Associated Diagnoses Date/Ti [...] this encounter Medical Devices Implanted Type Area Rabbit Breeder Device Identifier Shelf Expiration Date Model / Serial / Lot Neurostimul Intellis Adaptiv - [id number] - [id number] Implanted:Qty: 1 on 08/22/2022 by Rafia Small MD at OR [facility] N/A: Spine Lumbar [employer] 06/21/2023 [id number] / [id number] / Description:battery Medtronic Lead Kit 60 Cm Implanted:Qty: 1 on 08/22/2022 by Rafia Small MD at OR [facility] N/A: Spine Lumbar 02/01/2026 [id number] / / [id number] Medtronic Lead Kit 60cm Implanted:Qty: 1 on 08/22/2022 by Rafia Small MD at OR [facility] N/A: Spine Lumbar 03/21/2026 [id number] / / [id number] Envelope Tyrx Med Antibacteril - [id number] Implanted:Qty: 1 on 08/22/2022 by Rafia Small MD at OR [facility] N/A: Spine Lumbar [employer] 03/10/2023 [id number] / / [id number] Hemostatic Clip Res 235cm - [id number] Implanted:Qty: 4 on 10/05/2023 by Aj Pruett DO at [facility]COPY [facility]COPY 02/03/2026 [id number] / / Hemostatic Clip Res 235cm - [id number] Implanted:Qty: 1 on 10/05/2023 by Aj Pruett DO at ENDOSCOPY [facility] : ENDOSCOPY 02/02/2026 [id number] / / documented as of this encounter [...] Power of Attor narda? No Care Teams Wholesale Diamond Broker Relationship Specialty Start Date End Date Scott Weldon MD [address] [place] [address] PCP - General Family Medicine 08/03/18 documented as of this encounter
--- OUTSIDE RECORDS SUMMARY | 2024-02-02 08:52 | External Medical Summary | Summary of Care ---
Author Name Unknown Organization [facility] Address 100 [facility] [place] [address] Phone [phone] Care Team Providers Care Hot Wort Settler Name Role Phone Scott Weldon MD Primary Care Provider + Reason for Visit * Reason Comments Outpatient Testing Encounter Details Date Type Department Care Team (Late st Contact Info) Description 11/25/2023 3:00 PM EDT Laboratory [facility], [facility] [address] [facility] [address] Chronic pain syndrome Allergies Active Allergy Reactions Criticality Noted Date Comments Naproxen Sodium Bleeding High 11/29/2013 Pollen 12/03/2022 Seasonal Food (See Comments) Anaphylaxis High 04/20/2019 Hot peppers (oils) Kiwi Extract Anaphylaxis High 04/20/2019 documented as of this encounter (statuses as of 11/25/2023) Medications Medication Sig Dispensed Refills Start Date [...] Strip 5 02/17/2017 Active Insulin Infusion Pump (MINIMTeensSuccess 630G INSULIN PUMP) KITIndications:Type 2 diabetes mellitus with hemoglobin A1c goal of less than 8.0% ([facility]) Use as directed. 07/30/2017 Active CPAP [...] suspected opioid overdose. Seek immediate medical attention. [email or web address]?v=[email or web address] [email or web address] 1 Each 3 11/27/2022 Active [...] hemoglobin A1c goal of less than 8.0% ([facility]) Take 1 Tablet by mouth in the morning. Please get blood work completed the week of December 06. 30 Tablet 11/16/2023 Active documented as of this encounter (statuses as of 11/25/2023) Active Problems Problem Noted Date Diagnosed Date [...] as of this encounter (statuses as of 11/25/2023) Resolved Problems Problem Noted Date Diagnosed Date [...] Overview: Per Obesity Taxonomy Coronary atherosclerosis of [place] coronary artery 09/15/2008 10/03/2008 Malaise and fatigue [...] as of this encounter (statuses as of 11/25/2023) Immunizations Name Administration Dates Next Due COVID-19 mRNA, LNP-s, No Pre serve, 2-Dose Series (ActivePath) 11/08/2020,10/11/2020 HEP A - Hepatitis A (Adult > 18 yrs) 04/11/2011, 09/20/2010 Hepatitis B, 20+ yrs 07/05/2015 Pneumococcal Conjugate Vacci ne, 20-valent ([id number]) 03/13/2023 Pneumococcal Polysaccharide PPV23 (Pneumovax) 02/19/2018,03/09/2007 Seasonal [...] AM EDT Telemedicine Sleep Disorders Ctr Keith Rose, [place] [facility] [phone] Zaida Horan CRNP [facility] [address] 4 11:00 AM EDT Office Visit Pharmacy, [address] [address] [address] [address] [place] [address] 4 9:00 AM EDT Telemedicine Psychiatry, [facility] 200 [place] [address] Rj Mai MD [address] [place] [address] 4 12:00 PM EDT Immunization/Inje ction Hematology/Onco logy Treatment, [place] 200 [place] [phone] Nurse, Med 200 [place] [address] 4 10:00 AM EDT Telemedicine Pharmacy, [facility] [place] 132 [facility] [address] [place] [address] 4 8:00 AM EDT Telemedicine Gastroenterolog y, [address] [place] [address] Charlee Fields MD [address] [place] [address] 4 2:15 PM EDT Office Visit Hematology/Onco logy [facility] [address] [place], [place] [phone] Sunil Bourgeois MD 200 [facility] [place], [place] [address] 4 12:20 PM EDT Office Visit Family Practice [facility] [address] [place], [place] [address] Scott Weldon MD [address] [place] [address] 4 12:30 PM EDT Office Visit Ophthalmology, [facility] [address] [place] [address] Rolan Self, DO [address] [place] [address] 4 11:15 AM EDT Hospital Encounter ENDO O[facility], Endoscopy Room [facility] [address] [place] [phone] Aj Pruett, DO [address] [place], [place] [address] 4 11:15 AM EDT - 4 11:45 AM EDT Surgery ENDO [facility], Endoscopy Room [facility] [address] [place] [address] Aj Pruett, DO [address] [place] [address] ESOPHAGOGASTRODUODENOSCOPY (EGD), FLEXIBLE, TRANSORAL, DIAGNOSTIC 4 1:40 PM EST Office Visit Nephrology, [facility] [address] [place] [address] Jonathan Mathew MD [address] [place], [place] [address] 8:00 AM EST Office Visit Family [facility] [address] [place] [address] Scott Weldon MD [address] [place] [address] Pending Results Name Type Priority Associated Diagnoses Date /Time PAIN MANAGEMENT DRUG PANEL, URINE W/ INTERPRETATION Lab Routine Chronic pain syndrome 11/25/2023 3:15 PM EDT Scheduled Procedures Name Priority Associated Diagnoses Date/Ti ut ESOPHAGOGASTRODUODENOSCOPY ( EGD), FLEXIBLE, TRANSORAL, DIAGNOSTIC Portal hypertensive gastropathy (HCC) Multiple gastric polyps 03/25/2024 11:15 AM EDT COLONOSCOPY FLEXIBLE PROXIMA L DIAGNOSTIC Recall History of colonic polyps Health Maintenance Due Date Last Done Comments Cologuard 2017 Fecal Occult Blood Test 2017 Sigmoidoscopy 2017 Diabetic Eye Exam 01/16/2023 01/16/2022, , 12/14/2019, Additional history exists COVID-19 Vaccine ( season) 2023 11/08/2020, 10/11/2020 Zoster Vaccines (2 of 2) 06/14/2023 11/25/2023, 04/08 Depression Monitoring 03/13/2024 03/13/2023 Diabetic Foot Exam 03/13/2024 03/13/2023, 0 10/03/2021, 11/07/2019, Additional history exists HbA1c 05/14/2024 11/13/2023, 07/09, 02/18/2023, Additional history exists Albumin/Creatinine Ratio 07/23/2024 024, 04/06/2023, 03/11/2022, Additional history exists Mammogram 09/01/2024 09/02/2023, 04/10, 01/21/2016 B-12 09/07/2024 09/08/2023, /0 09/2022, 06/14/2020, Additional history exists GFR 11/12/2024 [...] Discontinued 10/05/2023, 10/05/2023, 06/27/2015, Additional history exists GARDASIL-HPV IMMUNIZATION SERIES Aged Out No longer eligible based on patient's age to complete this topic MENINGOCOCCAL (MENACTRA/MENVEO) Aged Out No longer eligible based on patient's age to complete this topic documented as of this encounter Medical Devices Implanted Type Area Motor Generator Set Operator Device Identifier Shelf Expiration Date Model / Serial / Lot Neurostimul Intellis Adaptiv - [id number] - [id number] Implanted:Qty: 1 on 08/22/2022 by Rafia Small MD at OR [facility] N/A: Spine Lumbar [employer] 06/21/2023 [id number] / [id number] / Description:battery Medtronic Lead Kit 60 Cm Implanted:Qty: 1 on 08/22/2022 by Rafia Small MD at OR [facility] N/A: Spine Lumbar 02/01/2026 [id number] / / [id number] Medtronic Lead Kit 60cm Implanted:Qty: 1 on 08/22/2022 by Rafia Small MD at OR [facility] N/A: Spine Lumbar 03/21/2026 [id number] / / [id number] Envelope Tyrx Med Antibacteril - [id number] Implanted:Qty: 1 on 08/22/2022 by Rafia Small MD at [facility] N/A: Spine Lumbar [employer] 03/10/2023 [id number] / / [id number] Hemostatic Clip Res 235cm - [id number] Implanted:Qty: 4 on 10/05/2023 by Aj Pruett DO at ENDOSCOPY [facility]COPY 02/03/2026 [id number] / / Hemostatic Clip Res 235cm - [id number] Implanted:Qty: 1 on 10/05/2023 by Aj Pruett DO at ENDOSCOPY [facility] : ENDOSCOPY 02/02/2026 [id number] / / documented as of this encounter Visit Diagnoses Diagnosis Chronic pain syndrome Portal hypertensive gastropathy (HCC) [...] Power of Attor narda? No Care Teams Hot Wort Settler Relationship Specialty Start Date End Date Scott Weldon MD [address] [place] [address] PCP - General Family Medicine 08/03/18 documented as of this encounter
--- OUTSIDE RECORDS SUMMARY | 2024-02-02 08:53 | External Medical Summary ---
Author Name Unknown Address Unknown Organization K01:[facility] [address] [facility] [place] [address] Laboratory Report Ordering Provider Test Date Status LUIS ANTONIO LEIVA 11/13/2023 10:07:51 Final Observation Date Value Abnormality Reference (Units ) Status SYNC LEUKOCYTES IN BLOOD BY AUTOMATED COUNT 11/13/2023 10:07:51 6.29 4.00-10.80 (K/uL) Final Segs 11/13/2023 10:07:51 70.8 40.0-75.0 (%) Final Lymphs % 11/13/2023 10:07:51 17.6 Below low normal 18.0-42.0 (%) Final Monos 11/13/2023 10:07:51 7.0 1.0-11.0 (%) Final Eosinophils 11/13/2023 10:07:51 3.7 0.0-6.0 (%) Final Basos 11/13/2023 10:07:51 0.6 0.0-2.0 (%) Final Immature Granulocyte, Percent 11/13/2023 10:07:51 0.3 0.0-2.0 (%) Final Absolute Segs 11/13/2023 10:07:51 4.45 1.80-7.70 (K/uL) Final Lymphs, absolute 11/13/2023 10:07:51 1.11 1.00-4.80 (K/ul) Final Monos, Abs 11/13/2023 10:07:51 0.44 0.00-1.10 (K/uL) Final Eos, Abs 11/13/2023 10:07:51 0.23 0.00-0.70 (K/uL) Final Basos, Abs 11/13/2023 10:07:51 0.04 0.00-0.20 (K/uL) Final Immature Granulocytes, Number 11/13/2023 10:07:51 0.02 0.00-0.20 (K/uL) Final Performing Location [facility] - [facility] [place] [address]
--- OUTSIDE RECORDS SUMMARY | 2024-02-02 08:53 | External Medical Summary | Summary of Care ---
Author Name Unknown Organization [facility] Address [address] [place] [address] Phone [phone] Care Team Providers Care Chemical Dependency Nurse Name Role Phone Scott Weldon MD Primary Care Provider + Reason for Visit * Reason Comments Outpatient Testing Encounter Details Date Type Department Care Team (Late st Contact Info) Description 11/13/2023 10:10 AM EDT Laboratory Laboratory, [place] [address] [place] [address] [place], [facility] [address] [place] [address] Iron deficiency anemia, unspecified iron deficiency anemia type; Type 2 diabetes mellitus with hemoglobin A1c goal of less than 8.0% ([facility]) Allergies Active Allergy Reactions Criticality Noted Date Comments Naproxen Sodium Bleeding High 11/29/2013 Pollen 12/03/2022 Seasonal Food (See Comments) Anaphylaxis High 04/20/2019 Hot peppers (oils) Kiwi Extract Anaphylaxis High 04/20/2019 documented as of this encounter (statuses as of 11/13/2023) Medications Medication Sig Dispensed Refills Start Date End Date Status ONETOUCH ULTRASOFT LANCETS MISCIndications:DM type 2, not at goal ([facility]) check FS 6 times daily 4 Box [...] Strip 5 02/17/2017 Active Insulin Infusion Pump (MINIMClusterize 630G INSULIN PUMP) KITIndications:Type 2 diabetes mellitus with hemoglobin A1c goal of less than 8.0% ([facility]) Use as directed. 07/30/2017 Active CPAP every [...] .com/[email or web address]?[email or web address] [email or web address] 1 Each 3 11/27/2022 Active Additional Information Patient not taking.Reported on 10/05/2023 Atenolol 100 MG Oral Tablet (Tenormin)Indicatio ns:Tachycardia TAKE 1 TABLET BY MOUTH TWICE A DAY 180 Tablet 3 04/09/2023 Active Loratadine 10 MG Oral Tablet (Claritin)Indicatio ns:Allergic rhinitis TAKE 1 TABLET BY MOUTH IN THE MORNING FOR ALLERGIES. 90 Tablet 1 04/13/2023 Active Additional Information Patient taking differently:10 mg Oral Daily(AM), For allergies.,Indications: as needed, Reported on 10/01/2023 Meclizine HCl 25 MG Oral Tablet (Antivert)Indicatio ns:Vertigo Take 1 Tablet by mouth 3 times a day as needed for Dizziness. 30 Tablet 1 04/15/2023 Active Zoster Vac Recomb Adjuvanted 50 MCG/0.5ML Intramuscular Suspension Reconstituted (Shingrix)Indicatio ns:Need for vaccination for zoster Inject 0.5 mL into a large muscle now and repeat dose in 60 to 180 days 1 Each 1 04/16/2023 Active NovoLIN R ReliOn 100 UNIT/ML Injection Solution (insulin REGULAR human)Indications:T ype 2 diabetes mellitus with hemoglobin A1c goal of less than 8.0% ([facility]),DM type 2, not at goal ([facility]) INJECT UP TO 200 UNITS SUBCUTANEOSULY ONCE [...] NEEDED FOR NAUSEA 30 Tablet 08/10/2023 Active metroNIDAZOLE 500 MG Oral Tablet Take 1 Tablet by mouth in the morning and 1 Tablet at noon and 1 Tablet before bedtime. Active Cefdinir 300 MG Oral Capsule (Omnicef) Take 1 Capsule by mouth in the morning and 1 Capsule before bedtime. Active Escitalopram Oxalate 20 MG Oral Tablet [...] at bedtime. 30 Tablet 1 09/28/2023 Active Zinc Oxide 10 % External Cream Apply 1 [place] topically to affected area once. Apply to buttocks area as needed Active Sucralfate 1 GM Oral Tablet (Carafate) [...] needed for nausea. 30 Tablet 10/21/2023 Active Buprenorphine 5 MCG/HR Transdermal Patch Weekly (Butrans)Indication s:Controlled substance agreement signed,Chronic bilateral low back pain with sciatica, sciatica laterality unspecified,Chronic pain syndrome Place 1 Patch topically on the skin once a week. 4 Patch 10/21/2023 Active Baclofen 10 MG Oral Tablet (Lioresal)Indicatio ns:Back spasm Take 1 Tablet by mouth in the morning and 1 Tablet at noon and 1 Tablet before bedtime. 90 Tablet 3 11/05/2023 Active documented as of this encounter (statuses as of 11/13/2023) Active Problems Problem Noted Date Diagnosed Date [...] as of this encounter (statuses as of 11/13/2023) Resolved Problems Problem Noted Date Diagnosed Date [...] Overview: Per Obesity Taxonomy Coronary atherosclerosis of [place] coronary artery 09/15/2008 10/03/2008 Malaise and fatigue [...] as of this encounter (statuses as of 11/13/2023) Immunizations Name Administration Dates Next Due COVID-19 mRNA, LNP-s, No Pre serve, 2-Dose Series (Pfizer) 11/08/2020,10/11/2020 HEP A - Hepatitis A (Adult > 18 yrs) 04/11/2011, 09/20/2010 Hepatitis B, 20+ yrs 07/05/2015 Pneumococcal Conjugate Vacci ne, 20-valent ([id number]) 03/13/2023 Pneumococcal Polysaccharide PPV23 (Pneumovax) 02/19/2018,03/09/2007 Seasonal [...] money to get more. Never true 10/07/2023 Sex and Gender Information Value Date [...] Care Team (Latest Contact Info) Description 4 12:30 PM EDT Telemedicine Psychiatry, [address] [place] [address] Rj Mai MD [address] [place] [address] 4 9:20 AM EDT Office Visit Sleep Disorders Ctr [facility] [address] [place] [phone] Lakisha Murcia DO [address] [place] [address] 4 2:20 PM EDT Office Visit Family Practice [facility] [address] [place] [phone] Scott Weldon MD [address] [place] [address] 4 11:00 AM EDT Office Visit [address] [place] [address] [address] [address] [place] [address] 4 10:00 AM EDT Telemedicine Pharmacy, [facility] 132 [facility] [place] [address] [facility] 132 [facility] [place] [address] 4 8:00 AM EDT Telemedicine Gastroenterolog y, [facility] [address] [place] [address] Charlee Fields MD [address] [place] [address] 4 2:15 PM EDT Office Visit Hematology/Onco logy [facility] [address] [place] [address] Sunil Bourgeois MD [address] [place] [address] 4 12:20 PM EDT Office Visit Family Practice [facility] 132 [facility] [place] [address] Scott Weldon MD 132 [facility] [place] [address] 4 12:30 PM EDT Office Visit Ophthalmology, [facility] 132 [facility] [place] [address] Rolan Self, DO 21 [facility] [place] [address] 4 11:15 AM EDT Hospital Encounter ENDO [facility], Endoscopy Room [facility] [address] [place] [address] Aj Pruett, DO [address] [place] [address] 4 11:15 AM EDT - 4 11:45 AM EDT Surgery ENDO [facility], Endoscopy Room [facility] [address] [place] [phone] Aj Pruett, DO [address] [place] [address] ESOPHAGOGASTRODUODENOSCOPY (EGD), FLEXIBLE, TRANSORAL, DIAGNOSTIC 4 1:40 PM EST Office Visit Nephrology, [facility] 200 [facility] [place] [address] Jonathan Mathew MD [address] [facility] [address] [place] [address] Pending Results Name Type Priority Associated Diagnoses Date /Time CBC WITH WBC DIFFERENTIAL Lab STAT Iron deficiency anemia, unspecified iron deficiency anemia type 11/13/2023 10:07 AM EDT FERRITIN Lab STAT Iron deficiency anemia, unspecified iron deficiency anemia type 11/13/2023 10:07 AM EDT IRON SCREEN, INCLUDING TIBC Lab STAT Iron deficiency anemia, unspecified iron deficiency anemia type 11/13/2023 10:07 AM EDT BASIC METABOLIC PANEL Lab Routine Type 2 diabetes mellitus with hemoglobin A1c goal of less than 8.0% ([facility]) 11/13/2023 10:07 AM EDT HEMOGLOBIN A1C Lab Routine Type 2 diabetes mellitus with hemoglobin A1c goal of less than 8.0% (HCC) 11/13/2023 10:07 AM EDT CBC Lab STAT Iron deficiency anemia, unspecified iron deficiency anemia type 11/13/2023 10:07 AM EDT DIFFERENTIAL, AUTOMATED Lab STAT Iron deficiency anemia, unspecified iron deficiency anemia type 11/13/2023 10:07 AM EDT Scheduled Procedures Name Priority Associated [...] 12/14/2019, Additional history exists COVID-19 Vaccine (3 season) 2023 11/08/2020, 10/11/2020 Zoster Vaccines (2 of 2) 06/14/2023 04/19/2023 HbA1c 01/21/2024 07/23/2023, 02/06, 06/11/2022, Additional history exists Diabetic Foot Exam 03/13/2024 03/13/2023, 0 10/03/2021, 11/07/2019, Additional history exists Albumin/Creatinine Ratio 07/23/2024 024, 04/06/2023, 03/11/2022, Additional history exists Mammogram 09/01/2024 09/02/2023, 04/10, 01/21/2016 B-12 09/07/2024 09/08/2023, 09/2022, 06/14/2020, Additional history exists GFR 10/21/2024 10/22/2023, 09/07, 09/23/2023, Additional history exists Pap Smear 09/07/2026 09/08/2023, [...] this encounter Medical Devices Implanted Type Area Quality Assurance Group Leader Device Identifier Shelf Expiration Date Model / Serial / Lot Neurostimul Intellis Adaptiv - [id number] - [id number] Implanted:Qty: 1 on 08/22/2022 by Rafia Small MD at OR [facility] N/A: Spine Lumbar [employer] 06/21/2023 [id number] / [id number] / Description:battery Medtronic Lead Kit 60 Cm Implanted:Qty: 1 on 08/22/2022 by Rafia Small MD at OR [facility] N/A: Spine Lumbar 02/01/2026 [id number] / / [id number] Medtronic Lead Kit 60cm Implanted:Qty: 1 on 08/22/2022 by Rafia Small MD at OR [facility] N/A: Spine Lumbar 03/21/2026 [id number] / / [id number] Envelope Tyrx Med Antibacteril - [id number] Implanted:Qty: 1 on 08/22/2022 by Rafia Small MD at OR [facility] N/A: Spine Lumbar [employer] 03/10/2023 [id number] / / [id number] Hemostatic Clip Res 235cm - [id number] Implanted:Qty: 4 on 10/05/2023 by Aj Pruett DO at ENDOSCOPY [facility] : ENDOSCOPY 02/03/2026 [id number] / / Hemostatic Clip Res 235cm - [id number] Implanted:Qty: 1 on 10/05/2023 by Aj Pruett DO at END[facility] : ENDOSCOPY 02/02/2026 [id number] / / documented as of this encounter [...] patient have Health Care Power of Attor nadra? No Care Teams Chemical Dependency Nurse Relationship Specialty Start Date End Date Scott Weldon MD [address] [place] [address] PCP - General Family Medicine 08/03/18 documented as of this encounter
--- OUTSIDE RECORDS SUMMARY | 2024-02-02 08:53 | External Medical Summary ---
Author Name Unknown Address Unknown Organization K01:LABORATORY C - 100 [facility] [address] Laboratory Report Ordering Provider Test Date Status JAN RIBEIRO 11/25/2023 15:15:48 Final Drugs that require complianc e testing:

Opioids:
Buprenorphine: Quantity patch Date/Time of last Dose weekly patch

Benzodiazepines
None

Cutoff Concentrations:
Drug Level
Amphetamines 500 ng/mL
Benzodiazepines 100 ng/mL
Cannabinoids 50 ng/mL
Cocaine Metabolite 150 ng/mL
Fentanyl 1 ng/mL
Hydrocodone / Hydromorphone 300 ng/mL
Methadone Metabolite 100 ng/mL
Morphine / Codeine 300 ng/mL
Oxycodone / Oxymorphone 100 ng/mL

Screening results are presumptive and can only be used for medical purposes. Confirmatory testing is available upon request. Observation Date Value Abnormality Reference (Units) Status COMPLIANCE INTERPRETATION 11/25/2023 15:15:48 Based on the medication information provided: Final COMPLIANCE INTERPRETATION 11/25/2023 15:15:48 The negative screening results are CONSISTENT with the information provided. Confirmatory testing is available upon request. Final COMPLIANCE INTERPRETATION 11/25/2023 15:15:48 Please note Butrans compliance was not evaluated as laboratory testing does not have sufficient sensitivity to consistently detect buprenorphine from patch use. Recommend visual observation of patch use and patch counting as part of Butrans compliance monitoring. Final Changed Report: Previously r eported on 11/26/2023 at 1307 EDT. See Results History in EPIC for previous versions of the report. Amphetamines, Urine screen 11/25/2023 15:15:48 Negative Negative Final Benzodiazepines, Urine screen 11/25/2023 15:15:48 Negative Negative Final Cannabinoids, Urine screen 11/25/2023 15:15:48 Negative Negative Final Cocaine Metabolite, Urine screen 11/25/2023 15:15:48 Negativ e Negative Final fentaNYL [Presence] in Urine by Screen method 11/25/2023 15:15:48 Negative Negative Final HYDROcodone [Presence] in Ur ine by Screen method 11/25/2023 15:15:48 Negative Negative Final 1-Tgsprseyfl-6,0-Hkclllqa-7, 3-Diphenylp yrrolidine (EDDP) [Presence] in Urine 11/25/2023 15:15:48 Negative Negative Final Opiates, Urine screen 11/25/2023 15:15:48 Negative Negative Final oxyCODONE [Presence] in Urin e by Screen method 11/25/2023 15:15:48 Negative Negative Final FORENSIC VALID INTERPRETATION 11/25/2023 15:15:48 Normal Final Creatinine, Urine 11/25/2023 15:15:48 65 (m g/dL) Final Performing Location LAB[facility]ATORY [facility] - [address] [facility] [address]
--- OUTSIDE RECORDS SUMMARY | 2024-02-02 08:53 | External Medical Summary | Summary of Care ---
Author Name Unknown Organization [facility] Address [address] [facility] [place] [address] Phone [phone] Care Team Providers Care [place]an[place] Support Worker Name Role Phone Scott Weldon MD Primary Care Provider + Reason for Visit * Reason Comments Return Visit Follow up Encounter Details Date Type Department Care Team (Late st Contact Info) Description 11/25/2023 2:20 PM EDT Office Visit Family Practice [facility] [address] [place] [address] Scott Weldon MD [address] [place] [address] Cirrhosis of liver without ascites, unspecified hepatic cirrhosis type (HCC)*; Chronic pain syndrome; Type 2 diabetes mellitus with hemoglobin A1c goal of less than 8.0% (HCC); Iron deficiency anemia, unspecified iron deficiency anemia type; Type 2 diabetes mellitus with stage 3 chronic kidney disease, with long-term current use of insulin, unspecified whether stage 3a or 3b CKD (HCC) Allergies Active Allergy Reactions Criticality Noted [...] Dosing Unit 3 6 Active Glucose Blood (Bujbu CONTOUR NEXT TEST) STRP Use to test blood sugar up to 6 times per day. E11.9 These are the ONLY test strips patient can use with insulin pump 200 Strip 5 7 Active Insulin Infusion Pump (MINIMTus reQRdos 630G INSULIN PUMP) KITIndications:Type 2 diabetes mellitus with hemoglobin A1c goal of less than 8.0% ([facility]) Use as directed. 8 Active CPAP every [...] overdose. Seek immediate medical attention. [email or web address]?[email or web address] 1 Each 3 3 Active Atenolol 100 [...] goal of less than 8.0% ([facility]),DM type 2, not at goal ([facility]) INJECT UP TO 200 UNITS SUBCUTANEOSULY ONCE [...] varices without bleeding, unspecified esophageal varices type ([facility]),Colitis Take 1 Tablet by mouth in the [...] OF BREATH 18 g 2 4 Active Eszopiclone 2 MG Oral Tablet (Lunesta) Take 1 Tablet by mouth at bedtime. 30 Tablet 1 4 Active Sucralfate 1 GM Oral Tablet [...] goal of less than 8.0% ([facility]) Take 1 Tablet by mouth in the morning. Please get blood work completed the week of December 06. 30 Tablet 4 Active Zoster Vac Recomb Adjuvanted 50 MCG/0.5ML Intramuscular Suspension Reconstituted (Shingrix) Inject 0.5 mL into a large muscle now and repeat dose in 60 to 180 days 1 Each 1 4 Active Zoster Vac Recomb Adjuvanted 50 MCG/0.5ML Intramuscular Suspension Reconstituted (Shingrix)Indicatio ns:Need for vaccination for zoster Inject 0.5 mL into a large muscle now and repeat dose in 60 to 180 days 1 Each 1 3 11/25/19 Discontinu ed(Medicat ion List Clean Up) metroNIDAZOLE [...] 24 Discontinu ed(Medicat ion List Clean Up) Zinc Oxide 10 % External Cream Apply 1 Beverly topically to affected area once. Apply to buttocks area as needed 11/25/19 Discontinu ed(Medicat ion List Clean Up) documented as of this encounter (statuses as [...] Overview: Per Obesity Taxonomy Coronary atherosclerosis of [place] coronary artery 09/15/2008 10/03/2008 Malaise and fatigue [...] mRNA, LNP-s, No Pre serve, 2-Dose Series ([place]) 11/08/2020,10/11/2020 HEP A - Hepatitis A (Adult > 18 yrs) 04/11/2011, 09/20/2010 Hepatitis B, 20+ yrs 07/05/2015 Pneumococcal Conjugate Vacci ne, 20-valent ([id number]) 03/13/2023 Pneumococcal Polysaccharide PPV23 (Pneumovax) 02/19/2018,03/09/2007 Seasonal [...] Sign Reading Time Taken Comments Blood Pressure 104/72 11/25/2023 2:21 PM EDT Pulse 82 11/25/2023 2:21 PM EDT Temperature - - Respiratory Rate 18 11/25/2023 2:21 PM EDT Oxygen Saturation 95% 11/25/2023 2:21 PM EDT Inhaled Oxygen Concentration - - Weight 104.6 kg (230 lb 8 oz) 11/25/2023 2:21 PM EDT Height - - Body Mass Index 39.57 10/05/2023 7:43 AM EDT documented in this encounter Functional [...] as of this encounter Progress Notes * Scott Weldon MD - 11/25/2023 2:53 PM EDT SUBJECTIVE: Carmen Tyson is a 53 year old female here for Return Visit (Follow up) . Here w/ , Sim. Chronic abdominal and back pain controlled fairly well with her spinal stimulator and using buprenorphine patch weekly. She continues to see pain management MTM for this. Pain limits her ADLs. Also with chronic fatigue. She had a GI bleed and was hospitalized with colitis in August. Feels like she is slowly recovering from this. She had acute renal injury with that butthat is back down to her baseline creatinine now. Hematology is monitoring her for her anemia and th rombocytopenia. Iron levels have improved and anemia has improved as well. Platelets currently 80. No polyuria/dipsia. No fever, chills, chest pain, vomit, diarrhea, constipation or vision changes ZEPEDA stable Nausea stable. patient has experienced improvement in pain control and level of functioning well on Butrans patch The narcotic will be used in combination [...] considered naloxone. Scott Weldon MD Physical: BP 104/72 | Pulse 82 | Resp 18 | Wt 104.6 kg (230 lb 8 oz) | SpO2 95% | BMI 39.57 kg/m | BSA 2.17m General-No apparent Distress Head, Eyes, Ears, Nose, Throat--Normocephalic, atraumatic Neck-Supple Lymph-no lymphadenopathy Lungs-Clear to Auscultation bilaterally Cardiovascular--Regular rate & Rhythm, +s1, s2, no murmur Abdomen-soft, RUQ tender, nondistended + bowel sounds no rebound. Extremities--no edema Neuro-alert & oriented x3 altered gait, using cane (K74.60) Cirrhosis of liver without ascites, unspecified hepatic cirrhosis type (HCC) (primary encounter diagnosis) Plan: chronic f/u hepatology. Avoid ETOH (G89.4) Chronic pain syndrome Plan: PAIN MANAGEMENT DRUG PANEL, URINE W/ INTERPRETATION Cont current pain mgmt. Update Urine tox F/u MTM (E11.9) Type 2 diabetes mellitus with hemoglobin A1c goal of less than 8.0% (HCC) Plan: HEMOGLOBIN A1C, ALBUMIN / CREATININE RATIO, URINE, BASIC METABOLIC PANEL, LIPID PANEL WITH DIRECT LDL IF TG IS HIGH Cont mgmt (D50.9) Iron deficiency anemia, unspecified iron deficiency anemia type Plan: improved F/u heme Scopes are UTD (E11.22, N18.30, Z79.4) Type 2 diabetes mellitus with stage 3 chronic kidney disease, with long-term current use of insulin, unspecified whether stage 3a or 3b CKD (HCC) Plan: Coint mgmt Shingrix #2 today @[facility] (This note was completed using the dictation program Fluency Direct. As such, there may be misspellings, word substitutions, or other variations that should not change the essence of the clinical content of this encounter note.If there is need for further clarification, please direct questions to the provider listed above.) Scott Weldon MD documented in this encounter Nursing Notes * Kathie Soares LPN - 11/25/2023 2:21 PM EDT The patient has been properly identified by confirmation of name and date of . Chief Complaint Patient presents with Return Visit Follow up documented in this encounter Plan of Treatment Upcoming Encounters Date Type Department Care Team (Latest Contact Info) Description 4 9:30 AM EDT Telemedicine Sleep Disorders Ctr [facility] [address] [facility] [place] [address] Zaida Horan CRNP [address] [place] [address] 4 11:00 AM EDT Office Visit Pharmacy, [place] [address] [place] [address] [place], [place] [address] [place] [address] 4 9:00 AM EDT Telemedicine Psychiatry, [facility] [address] [facility] [place] [address] Rj Mai MD [address] [place] [address] 4 12:00 PM EDT Immunization/Inje ction Hematology/Onco logy Treatment, [place] [address] [place] [phone] Nurse, Med [address] [facility] [place] [address] 4 10:00 AM EDT [facility], [facility] 132 [place] [address] [place] [address] 4 8:00 AM EDT Telemedicine Gastroenterolog y, [address] [address] Charlee Fields MD [address] [place] [address] 4 2:15 PM EDT Office Visit [facility] [place] [address] [place] [phone] Sunil Bourgeois MD [address] [place] [address] 4 12:20 PM EDT Office Visit Family Practice [facility] [address] [facility] [place] [address] Scott Weldon MD [address] [place] [address] 4 12:30 PM EDT Office Visit Ophthalmology, [facility] [address] [place] [address] Rolan Self, DO [address] [place] [address] 4 11:15 AM EDT Hospital Encounter ENDO [facility], Endoscopy Room [facility] [address] [place] [phone] Aj Pruett, DO [address] [place] [address] 4 11:15 AM EDT - 4 11:45 AM EDT Surgery ENDO [facility], Endoscopy Room [facility] [address] [place] [phone] Aj Pruett, DO [address] [place] [address] ESOPHAGOGASTRODUODENOSCOPY (EGD), FLEXIBLE, TRANSORAL, DIAGNOSTIC 4 1:40 PM EST Office Visit Nephrology, [facility] [address] [place] [address] Jonathan Mathew MD [address] [place] [address] 5 8:00 AM EST Office Visit Family Practice [facility] [address] [place] [address] Scott Weldon MD [address] [place] [address] Scheduled Orders Name Type Priority Associated Diagnoses Orde r Schedule PAIN MANAGEMENT DRUG PANEL, URINE W/ INTERPRETATION Lab Routine Chronic pain syndrome Expected: 11/25/2023 (Approximate), Expires: 11/24/2024 HEMOGLOBIN A1C Lab Routine Type 2 diabetes mellitus with hemoglobin A1c goal of less than 8.0% (HCC) Expected: 05/17/2024 (Approximate), Expires: 11/24/2024 ALBUMIN / CREATININE RATIO, URINE Lab Routine Type 2 diabetes mellitus with hemoglobin A1c goal of less than 8.0% (HCC) Expected: 05/17/2024 (Approximate), Expires: 11/24/2024 BASIC METABOLIC PANEL Lab Routine Type 2 diabetes mellitus with hemoglobin A1c goal of less than 8.0% (HCC) Expected: 05/17/2024 (Approximate), Expires: 11/24/2024 LIPID PANEL WITH DIRECT LDL IF TG IS HIGH Lab Routine Type 2 diabetes mellitus with hemoglobin A1c goal of less than 8.0% (HCC) Expected: 05/17/2024 (Approximate), Expires: 11/24/2024 Scheduled Procedures Name Priority Associated Diagnoses Date/Ti [...] Zoster Vaccines (2 of 2) 06/14/2023 04/19/2023 Depression Monitoring 03/13/2024 03/13/2023 Diabetic Foot Exam [...] this encounter Medical Devices Implanted Type Area Workers' Compensation Magistrate Device Identifier Shelf Expiration Date Model / Serial / Lot Neurostimul Intellis Adaptiv - [id number] - [id number] Implanted:Qty: 1 on 08/22/2022 by Rafia Small MD at OR [facility] N/A: Spine Lumbar [employer] 06/21/2023 [id number] / [id number] / Description:battery Medtronic Lead Kit 60 Cm Implanted:Qty: 1 on 08/22/2022 by Rafia Small MD at OR [facility] N/A: Spine Lumbar 02/01/2026 [id number] / / [id number] Medtronic Lead Kit 60cm Implanted:Qty: 1 on 08/22/2022 by Rafia Small MD at OR [facility] N/A: Spine Lumbar 03/21/2026 [id number] / / [id number] Envelope Tyrx Med Antibacteril - [id number] Implanted:Qty: 1 on 08/22/2022 by Rafia Small MD at OR [facility] N/A: Spine Lumbar [employer] 03/10/2023 [id number] / / [id number] Hemostatic Clip Res 235cm - [id number] Implanted:Qty: 4 on 10/05/2023 by Aj Pruett DO at END[facility]COPY [facility] 02/03/2026 [id number] / / Hemostatic Clip Res 235cm - [id number] Implanted:Qty: 1 on 10/05/2023 by Aj Pruett DO at ENDOSCOPY [facility] : ENDOSCOPY 02/02/2026 [id number] / / documented as of this encounter Visit Diagnoses Diagnosis Cirrhosis of liver without ascites, unspecified hepatic cirrhosis type (HCC)- Primary Chronic pain syndrome Type 2 diabetes mellitus with hemoglobin A1c goal of less than 8.0% (HCC) Iron deficiency anemia, unspecified iron deficiency anemia type Type 2 diabetes mellitus with stage 3 chronic kidney disease, with long-term current use of insulin, unspecified whether stage 3a or 3b CKD (HCC) Portal hypertensive gastropathy (HCC) Other specified [...] Power of Attor narda? No Care Teams [place] Support Worker Relationship Specialty Start Date End Date Scott Weldon MD [address] [place] [address] PCP - General Family Medicine 08/03/18 documented as of this encounter"
--- OUTSIDE RECORDS SUMMARY | 2024-02-02 08:53 | External Medical Summary | Summary of Care ---
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 Scott Weldon MD Primary Care Provider + Reason for Visit * Reason Onset Date Comments Appointment 11/16/2023 Encounter Details Date Type Department Care Team (Late st Contact Info) Description 11/16/2023 Telephone Hematology/Oncology [facility] [address] [place] [address] Services, Scheduling [address] [place] [address] Appointment Allergies Active Allergy Reactions Criticality Noted Date Comments Naproxen Sodium Bleeding High 11/29/2013 Pollen 12/03/2022 Seasonal Food (See Comments) Anaphylaxis High 04/20/2019 Hot peppers (oils) Kiwi Extract Anaphylaxis High 04/20/2019 documented as of this encounter (statuses as of 11/16/2023) Medications Medication Sig Dispensed Refills Start Date [...] Strip 5 02/17/2017 Active Insulin Infusion Pump (handsomexcutive 630G INSULIN PUMP) KITIndications:Type 2 diabetes mellitus with hemoglobin A1c goal of less than 8.0% ([facility]) Use as directed. 07/30/2017 Active [...] suspected opioid overdose. Seek immediate medical attention. [email or web address]?v=[email or web address] 1 Each 3 11/27/2022 Active [...] varices without bleeding, unspecified esophageal varices type ([facility]),Colitis Take 1 Tablet by mouth in the [...] Oxide 10 % External Cream Apply 1 [place] topically to affected area once. Apply to [...] as of this encounter (statuses as of 11/16/2023) Active Problems Problem Noted Date Diagnosed Date [...] as of this encounter (statuses as of 11/16/2023) Resolved Problems Problem Noted Date Diagnosed Date [...] Overview: Per Obesity Taxonomy Coronary atherosclerosis of [place] coronary artery 09/15/2008 10/03/2008 Malaise and fatigue [...] as of this encounter (statuses as of 11/16/2023) Immunizations Name Administration Dates Next Due COVID-19 mRNA, LNP-s, No Pre serve, 2-Dose Series (Nexx Systems) 11/08/2020,10/11/2020 HEP A - Hepatitis A (Adult > 18 yrs) 04/11/2011, 09/20/2010 Hepatitis B, 20+ yrs 07/05/2015 Pneumococcal Conjugate Vacci ne, 20-valent ([id number]) 03/13/2023 Pneumococcal Polysaccharide PPV23 (Pneumovax) 02/19/2018,03/09/2007 Seasonal [...] encounter Miscellaneous Notes * Telephone Encounter - Jazzy Akers OSA - 11/16/2023 1:00 PM EDT Scheduled * Telephone Encounter - Iesha Newell OSA - 11/16/2023 12:13 PM EDT Pt needs to schedule her port-flush at [facility]. Pt prefers an appt mid- morning and possibly this week if available. Pt can be reached at [phone] Thank you! documented in this encounter Plan of Treatment Upcoming Encounters Date Type Department Care Team (Latest Contact Info) Description 4 11:00 AM EDT Immunization/Inje ction Hematology/Onco logy Treatment, [place] [address] [place] [phone] Nurse, Med 200 [facility] [place] [address] 4 12:30 PM EDT Telemedicine Psychiatry, [address] [place] [address] Rj Mai MD [address] [place] [address] 4 9:20 AM EDT Office Visit Sleep Disorders Ctr [facility] [address] [place] [phone] Lakisha Murcia DO [address] [place] [address] 4 2:20 PM EDT Office Visit Family Practice [facility] 132 [facility] [place] [address] Scott Weldon MD 132 [facility] [place] [address] 4 11:00 AM EDT Office Visit Pharmacy, [address] [address] 4 10:00 AM EDT Telemedicine Pharmacy, [facility] 132 [facility] [place] [address] [facility] 132 [place] [address] 4 8:00 AM EDT Telemedicine Gastroenterolog y, [address] [address] Charlee Fields MD [address] [place] [address] 4 2:15 PM EDT Office Visit Hematology/Onco logy [place] [place] [address] [place] [phone] Sunil Bourgeois MD [address] [place] [address] 4 12:20 PM EDT Office Visit Family Practice [facility] [address] [place], [place] [address] Scott Weldon MD [address] [place] [address] 4 12:30 PM EDT Office Visit Ophthalmology, [facility] [address] [place], [place] [address] Rolan Self, DO [address] [place] [address] 4 11:15 AM EDT Hospital Encounter ENDO [facility], Endoscopy Room [facility] [address] [place] [address] Aj Pruett, DO [address] [place], [place] [address] 4 11:15 AM EDT - 4 11:45 AM EDT Surgery ENDO [facility], Endoscopy Room [facility] [address] [place], [place] [phone] Aj Pruett, DO [address] [place] [address] ESOPHAGOGASTRODUODENOSCOPY (EGD), FLEXIBLE, TRANSORAL, DIAGNOSTIC 4 1:40 PM EST Office Visit [facility]rology[facility] [address] [address] Jonathan Mathew MD [address] [place] [address] Scheduled Procedures Name Priority Associated Diagnoses Date/Ti vt ESOPHAGOGASTRODUODENOSCOPY ( EGD), FLEXIBLE, TRANSORAL, DIAGNOSTIC Portal hypertensive gastropathy (HCC) Multiple gastric polyps 03/25/2024 11:15 AM EDT COLONOSCOPY FLEXIBLE PROXIMA L DIAGNOSTIC Recall History of colonic polyps Health Maintenance Due Date Last Done Comments Cologuard 2017 Fecal Occult Blood Test 2017 Sigmoidoscopy 2017 Diabetic Eye Exam 01/16/2023 01/16/2022, , 12/14/2019, Additional history exists COVID-19 Vaccine (3 - season) 2023 11/08/2020, 10/11/2020 Zoster Vaccines (2 [...] this encounter Medical Devices Implanted Type Area Shove Up Device Identifier Shelf Expiration Date Model / Serial / Lot Neurostimul Intellis Adaptiv - [id number] - [id number] Implanted:Qty: 1 on 08/22/2022 by Rafia Small MD at OR [facility] N/A: Spine Lumbar [employer] 06/21/2023 [id number] / [id number] / Description:battery Medtronic Lead Kit 60 Cm Implanted:Qty: 1 on 08/22/2022 by Rafia Small MD at OR [facility] N/A: Spine Lumbar 02/01/2026 [id number] / / [id number] Medtronic Lead Kit 60cm Implanted:Qty: 1 on 08/22/2022 by Rafia Small MD at OR [facility] N/A: Spine Lumbar 03/21/2026 [id number] / / [id number] Envelope Tyrx Med Antibacteril - [id number] Implanted:Qty: 1 on 08/22/2022 by Rafia Small MD at OR [facility] N/A: Spine Lumbar [employer] 03/10/2023 [id number] / / [id number] Hemostatic Clip Res 235cm - [id number] Implanted:Qty: 4 on 10/05/2023 by Aj Pruett DO at ENDOSCOPY [facility] 02/03/2026 [id number] / / Hemostatic Clip Res 235cm - [id number] Implanted:Qty: 1 on 10/05/2023 by Aj Pruett DO at ENDOSCOPY [facility] : ENDOSCOPY 02/02/2026 [id number] / / documented as of this encounter [...] Power of Attor narda? 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
--- OUTSIDE RECORDS SUMMARY | 2024-02-02 08:53 | External Medical Summary | Summary of Care ---
Author Name Unknown Organization [facility] Address [address] [facility] [address] Phone [phone] Care Team Providers Care Airline Operations Agent Name Role Phone Scott Weldon MD Primary Care Provider + Reason for Visit * Reason Comments Dosage Adjustment In Person (Anticoag Cl inic) Diabetes Follow-Up Insulin Pump Encounter Details Date Type Department Care Team (Late st Contact Info) Description 11/13/2023 9:10 AM EDT Office Visit Pharmacy, [place] [address] [place] [address] [facility] [address] [place] [address] Type 2 diabetes mellitus with hemoglobin A1c goal of less than 8.0% ([facility])* Allergies Active Allergy Reactions Criticality Noted Date Comments Naproxen Sodium Bleeding High 11/29/2013 Pollen 12/03/2022 Seasonal Food (See Comments) Anaphylaxis High 04/20/2019 Hot peppers (oils) Kiwi Extract Anaphylaxis High 04/20/2019 documented as of this encounter (statuses as of 11/13/2023) Medications Medication Sig Dispensed Refills Start Date End Date Status ONETOUCH ULTRASOFT LANCETS MISCIndications:DM type 2, not at goal ([facility]) check FS 6 times daily [...] Strip 5 02/17/2017 Active Insulin Infusion Pump ([employer] 630G INSULIN PUMP) KITIndications:Type 2 diabetes mellitus with hemoglobin A1c goal of less than 8.0% ([facility]) Use as directed. 07/30/2017 Active [...] hemoglobin A1c goal of less than 8.0% ([facility]),DM type 2, not at goal ([facility]) INJECT UP TO 200 UNITS [...] Oxide 10 % External Cream Apply 1 [place] topically to affected area once. Apply to [...] Overview: Per Obesity Taxonomy Coronary atherosclerosis of [place] coronary artery 09/15/2008 10/03/2008 Malaise and fatigue [...] yrs 07/05/2015 Pneumococcal Conjugate Vacci ne, 20-valent ([id number]) 03/13/2023 Pneumococcal Polysaccharide PPV23 (Pneumovax) 02/19/2018,03/09/2007 Seasonal [...] this encounter Progress Notes * Danielle Anderson, [facility] - 11/13/2023 9:15 AM EDT Images from the original note were not included. Medication Therapy Disease Management Clinic - Diabetes Management Progress Note Carmen Tyson, identified by name and date of , is a 53 year old female being seen for diabetes management/education. Patient presents for return diabetic visit. And insulin pump download DIABETES: Current diabetic medications: Metformin 1000mg twice a day Ozempic 2 mg once weekly HOLD Jardiance 10 mg once daily- started 09/07/23, Dc'd 09/24/23 eGFR 28 mL/min as of 09/23/23 Medtronic 630G - [employer]ipiaobao ([id number]) Infusion Set: Quick Set Insulin: Novolin R Basal Rate (both segments decreased) 12a-8a 2.00 u/hr 8a-12a 4.00 u/hr Bolus: hardly using (was 15 units for breakfast and lunch/ 22 units for supper- 10 units for chocolate milk snack before bed) Carb ratio 1:3 Bolus wizard: hardly using ISF: 1:10 Blood Glucose Goals: 100-140 Active Insulin Time: 2 hours Medication Injection Site: Abdomen Lifestyle: Diet: unchanged Glucose Review/SMBG: Readings obtained from patient device Dexcom has not been active due to issues with [employer] supplying patient. Hypoglycemia: Does your blood sugar go below 70 mg/dL? None reported by patient Hyperglycemia symptoms present: none Recent Labs Units 07/23/23 1200 02/18/23 1326 06/11/22 0948 HEMOGLOBIN A1C - [facility] % 5.8* 5.7* 8.6* Recent Labs Units 10/22/23 1153 10/02/23 1315 09/23/23 1427 ESTIMATED GLOMERULAR FILTRATION RATE - [facility] mL/min 48* 44* 28* CREATININE - [facility] mg/dL 1.3* 1.4* 2.1* HYPERTENSION: Patient on ACEi/ARB: currently on hold due to kidney function BP Readings from Last 3 Encounters: 10/08/23 101/68 10/05/23 108/57 09/16/23 106/62 Blood pressure at goal: yes HYPERLIPIDEMIA: Patient is taking moderate or high intensity statin: yes HEALTH MAINTENANCE REVIEW: Health Maintenance Due Topic Date Due COLONOSCOPY-EVERY 5 YRS AGES 18-100 06/27/2020 Diabetic Eye Exam 01/16/2023 COVID-19 Vaccine (2022- season) 2023 Zoster Vaccines (2 of 2) 06/14/2023 ASSESSMENT & PLAN: ICD-10-CM 1. Type 2 diabetes mellitus with hemoglobin A1c goal of less than 8.0% ([facility]) E11.9 Considerations: - activity limited by chronic low back pain - obtaining ozempic and novolin R via PAP - prefers to use local pharmacy instead of [facility] - RENAL function Glycemic control is unstable, trending high in the AM. Hard to fully assess her BG control because she has been without her dexcom for a few weeks now (supplied by [employer]). She would like a new supplier, and also to upgrade to dexcom g7 Patient agreeable to adjust medications as noted below. Basal settings increased overnight as glucose is rising overnight and BG in 180 range per patient in the AM ICR/fixed dose and ISF continued- patient hardly using this function of the pump. Hopeful to be able to change patient to just basal insulin injection and get her off the pump. Talked with patient that if she gets as low as 60 units daily on the pump, we will plan to transition her to basal insulin injections. Jardiance remains on hold due to issues with EVA etc. PCP informed patient that she can remain off of it because her A1c has been so good, but I sent a separate TE to pcp to request she be restarted on it in an effort to decrease insulin doses + provide renal and CV protection benefits. Will provide patient with updates on MyG. BMP to be completed today to get baseline. MEDICATION CHANGES: yes, see below; preferred pharmacy: [facility] Diabetic Medications: Metformin 1000mg twice a day Ozempic 2 mg once weekly HOLD Jardiance 10 mg once daily- started 09/07/23, Dc'd 09/24/23 eGFR 48 mL/min as of 10/22/23 [employer]G - [place] ([id number]) Infusion Set: Quick Set Insulin: Novolin R Basal Rate 12a-8a 2.30 u/hr (decreased) 8a-12a 4.00 u/hr Bolus: hardly using (was 15 units for breakfast and lunch/ 22 units for supper- 10 units for chocolate milk snack before bed) Carb ratio 1:3 Bolus wizard: hardly using ISF: 1:10 Blood Glucose Goals: 100-140 Active Insulin Time: 2 hours FOLLOW UP: Return to clinic in 6 weeks 12/25/2023 Danielle Anderson [facility] Clinical Pharmacist - [employer] Marketing Medication Therapy Management Clinic 11/13/23, 11/13/23 documented in this encounter Plan of Treatment Upcoming Encounters Date Type Department Care Team (Latest Contact Info) Description 4 10:10 AM EDT Laboratory Laboratory, [place] [facility] [address] [place] [address] [place], [facility] [address] [place], [place] [id number] Iron deficiency anemia, unspecified iron deficiency anemia type; Type 2 diabetes mellitus with hemoglobin A1c goal of less than 8.0% ([facility]) 4 12:30 PM EDT Telemedicine Psychiatry, [address] [place] [address] Rj Mai MD [address] [place] [address] 4 9:20 AM EDT Office Visit Sleep Disorders Ctr [facility] [address] [place] [address] Lakisha Murcia DO [address] [place] [address] 4 2:20 PM EDT Office Visit Family Practice [facility] [address] [place] [address] Scott Weldon MD [address] [place] [address] 4 11:00 AM EDT Office Visit Pharmacy, [address] [address] 4 10:00 AM EDT Telemedicine Pharmacy, [facility] [address] [place] [address] [facility] [address] [place] [address] 4 8:00 AM EDT Telemedicine Gastroenterolog y, [address] [address] Charlee Fields MD [address] [place] [address] 4 2:15 PM EDT Office Visit Hematology/Onco logy [facility] [place] [address] [place] [address] Sunil Bourgeois MD [address] [place] [address] 4 12:20 PM EDT Office Visit Family Practice [facility] [address] [place] [address] Scott Weldon MD [address] [place] [address] 4 12:30 PM EDT Office Visit Ophthalmology, [facility] [address] [place] [address] Rolan Self, DO [address] [place] [address] 4 11:15 AM EDT Hospital Encounter ENDO [facility], Endoscopy Room [facility] [address] [place] [address] Aj Pruett, DO [address] [place] [address] 4 11:15 AM EDT - 4 11:45 AM EDT Surgery ENDO [facility], Endoscopy Room [facility] [address] [place] [address] Aj Pruett, DO [address] [place], [place] [address] ESOPHAGOGASTRODUODENOSCOPY (EGD), FLEXIBLE, TRANSORAL, DIAGNOSTIC 4 1:40 PM EST Office Visit Nephrology, [facility] [address] [address] Jonathan Mathew MD [facility] [place] [address] Pending Results Name Type Priority Associated Diagnoses Date /Time BASIC METABOLIC PANEL Lab Routine Type 2 diabetes mellitus with hemoglobin A1c goal of less than 8.0% ([facility]) 11/13/2023 10:07 AM EDT HEMOGLOBIN A1C Lab Routine Type 2 diabetes mellitus with hemoglobin A1c goal of less than 8.0% ([facility]) 11/13/2023 10:07 AM EDT Scheduled Orders Name Type Priority Associated Diagnoses Orde r Schedule BASIC METABOLIC PANEL Lab Routine Type 2 diabetes mellitus with hemoglobin A1c goal of less than 8.0% ([facility]) Expected: 11/20/2023 (Approximate), Expires: 11/12/2024 HEMOGLOBIN A1C Lab Routine Type 2 diabetes mellitus with hemoglobin A1c goal of less than 8.0% ([facility]) Expected: 11/20/2023 (Approximate), Expires: 11/12/2024 Scheduled Procedures Name Priority Associated Diagnoses Date/Ti nc ESOPHAGOGASTRODUODENOSCOPY ( EGD), FLEXIBLE, TRANSORAL, DIAGNOSTIC Portal [...] 01/0 09/2022, 06/14/2020, Additional history exists GFR 10/21/2024 [...] this encounter Medical Devices Implanted Type Area Steaming Machine Operator Device Identifier Shelf Expiration Date Model / Serial / Lot Neurostimul Intellis Adaptiv - [id number] - [id number] Implanted:Qty: 1 on 08/22/2022 by Rafia Small MD at OR [facility] N/A: Spine Lumbar [employer] 06/21/2023 [id number] / [id number] / Description:battery Medtronic Lead Kit 60 Cm Implanted:Qty: 1 on 08/22/2022 by Rafia Small MD at OR [facility] N/A: Spine Lumbar 02/01/2026 [id number] / / [id number] Medtronic Lead Kit 60cm Implanted:Qty: 1 on 08/22/2022 by Rafia Small MD at OR [facility] N/A: Spine Lumbar 03/21/2026 [id number] / / [id number] Envelope Tyrx Med Antibacteril - [id number] Implanted:Qty: 1 on 08/22/2022 by Rafia Small MD at OR [facility] N/A: Spine Lumbar [employer] 03/10/2023 [id number] / / [id number] Hemostatic Clip Res 235cm - [id number] Implanted:Qty: 4 on 10/05/2023 by Aj Pruett DO at ENDOSCOPY [facility] : ENDOSCOPY 02/03/2026 [id number] / / Hemostatic Clip Res 235cm - [id number] Implanted:Qty: 1 on 10/05/2023 by Aj Pruett DO at ENDOSCOPY [facility] : ENDOSCOPY 02/02/2026 [id number] / / documented as of this encounter Visit Diagnoses Diagnosis Type 2 diabetes mellitus with hemoglobin A1c goal of less than 8.0% ([facility])- Primary Iron deficiency anemia, unspecified iron [...] Power of Attor narda? No Care Teams Airline Operations Agent Relationship Specialty Start Date End Date Scott Weldon MD [address] [place] [address] PCP - General Family Medicine 08/03/18 documented as of this encounter
--- OUTSIDE RECORDS SUMMARY | 2024-02-02 08:53 | External Medical Summary ---
Author Name Unknown Address Unknown Organization K01:[facility] [place] [address] [place] [address] Laboratory Report Ordering Provider Test Date Status GUS KENNEDY 11/13/2023 10:07:51 Final Observation Date Value Abnormality Reference (Units ) Status BUN 11/13/2023 10:07:51 20 6-20 (mg/dL) Final Creatinine 11/13/2023 10:07:51 1.4 Above high normal 0.5-1.0 (mg/dL) Final Glomerular filtration rate/1.73 sq M.predicted [Volume Rate/Area] in Serum, Plasma or Blood by Creatinine-based formula (CKD-EPI) 11/13/2023 10:07:51 46 Below low normal >=60 (mL/min) Final eGFR is calculated based on the CKD-EPI 2020 equation Sodium 11/13/2023 10:07:51 142 135-146 (m mol/L) Final Potassium 11/13/2023 10:07:51 4.2 3.5-5.1 (m mol/L) Final Cl 11/13/2023 10:07:51 101 98-107 (mm ol/L) Final CO2 11/13/2023 10:07:51 29 22-32 (mmo l/L) Final Anion gap 11/13/2023 10:07:51 12 7-15 (mmol /L) Final Glucose 11/13/2023 10:07:51 120 70-120 (mg /dL) Final Calcium 11/13/2023 10:07:51 9.0 8.4-10.2 ( mg/dL) Final Performing Location [facility] [place] [facility] [address] [place] [address]
--- OUTSIDE RECORDS SUMMARY | 2024-02-02 08:53 | External Medical Summary ---
Author Name Unknown Address Unknown Organization K01:[facility] [place] - [address] [place] [address] Laboratory Report Ordering Provider Test Date Status LUIS ANTONIO LEIVA 11/13/2023 10:07:51 Final Observation Date Value Abnormality Reference (Units ) Status Iron 11/13/2023 10:07:51 56 33-151 (ug /dL) Final Iron-binding capacity 11/13/2023 10:07:51 338 250-425 (ug/dL) Final Transferrin Sat % 11/13/2023 10:07:51 17 15 -55 (%) Final Performing Location LABORATORY [facility] [place] - [address] [place] [address]
--- OUTSIDE RECORDS SUMMARY | 2024-02-02 08:53 | External Medical Summary ---
Author Name Unknown Address Unknown Organization K01:[facility]ORY [facility] [place] - [address] [place] [address] Laboratory Report Ordering Provider Test Date Status LUIS ANTONIO LEIVA 11/13/2023 10:07:51 Final Observation Date Value Abnormality Reference (Units ) Status Ferritin 11/13/2023 10:07:51 84 13-150 (ng /mL) Final Postmenopausal women have hi gher ferritin levels than pre-menopausal women. The above reference interval is based on pre-menopausal women. Performing Location LABORATORY C - [address] [place] [address]
--- OUTSIDE RECORDS SUMMARY | 2024-02-02 08:54 | External Medical Summary | Summary of Care ---
Author Name Unknown Organization [facility] Address [address] [facility] [place] [address] Phone [phone] Care Team Providers Care Captain Airline Pilot Name Role Phone Scott Weldon MD Primary Care Provider + Reason for Visit * Reason Onset Date Comments Medication Refill 09/22/2023 Encounter Details Date Type Department Care Team (Late st Contact Info) Description 09/22/2023 Telephone Family Practice [facility] [address] [place] [address] Scott Weldon MD [address] [place] [address] Medication Refill Allergies Active Allergy Reactions Criticality Noted Date Comments Naproxen Sodium Bleeding High 11/29/2013 Pollen 12/03/2022 Seasonal Food (See Comments) Anaphylaxis High 04/20/2019 Hot peppers (oils) Kiwi Extract Anaphylaxis High 04/20/2019 documented as of this encounter (statuses as of 10/23/2023) Medications Medication Sig Dispensed Refills Start Date [...] Strip 5 02/17/2017 Active Insulin Infusion Pump ([facility] 630G INSULIN PUMP) KITIndications:Type 2 diabetes mellitus with hemoglobin A1c goal of less than 8.0% ([facility]) Use as directed. 0 07/30/2017 Active CPAP every night at bedtime. 0 [...] suspected opioid overdose. Seek immediate medical attention. [email or web address]?[email or web address] 1 Each 3 11/27/2022 Active [...] [facility]ICAL [facility]),DM type 2, not at goal ([facility]) INJECT UP TO 200 UNITS SUBCUTANEOSULY ONCE DAILY VIA PUMP 60 mL 0 05/05/2023 Active Pregabalin 100 MG Oral Capsule [...] 2 mg once. Ozempic weekly on Sundays 0 08/06/2023 Active Ondansetron 8 MG Oral Tablet Disintegrating (Zofran) PLACE 1 TABLET ON TONGUE AND DISSOLVE EVERY 8 HOURS NEEDED FOR NAUSEA 30 Tablet 0 08/10/2023 Active metroNIDAZOLE 500 MG Oral Tablet Take 1 Tablet by mouth in the morning and 1 Tablet at noon and 1 Tablet before bedtime. 0 Active Cefdinir 300 MG Oral Capsule (Omnicef) Take 1 Capsule by mouth in the morning and 1 Capsule before bedtime. 0 Active Escitalopram Oxalate 20 MG Oral Tablet (Lexapro) Take 1 Tablet by mouth in the morning. 90 Tablet 1 08/25/2023 Active Pantoprazole Sodium 40 MG Oral Tablet Delayed Release (Protonix)Indicatio ns:Esophageal varices without bleeding, unspecified esophageal varices type ([facility]),Colitis Take 1 Tablet by mouth [...] OF BREATH 18 g 2 09/16/2023 Active Zinc Oxide 10 % External Cream Apply 1 [place] topically to affected area once. Apply to buttocks area as needed 0 Active Sucralfate 1 GM Oral Tablet (Carafate) Take 1 Tablet by mouth in the morning and 1 Tablet before bedtime. 120 Tablet 0 10/05/2023 Active documented as of this encounter (statuses as of 10/23/2023) Active Problems Problem Noted Date Diagnosed Date [...] as of this encounter (statuses as of 10/23/2023) Resolved Problems Problem Noted Date Diagnosed Date [...] as of this encounter (statuses as of 10/23/2023) Immunizations Name Administration Dates Next Due COVID-19 mRNA, LNP-s, No Pre serve, 2-Dose Series (3rd Planet) 11/08/2020,10/11/2020 HEP A - Hepatitis A (Adult > 18 yrs) 04/11/2011, 09/20/2010 Hepatitis B, 20+ yrs 07/05/2015 Pneumococcal Conjugate Vacci ne, 20-valent ([id number]) 03/13/2023 Pneumococcal Polysaccharide PPV23 (Pneumovax) 02/19/2018,03/09/2007 Seasonal [...] encounter Miscellaneous Notes * Telephone Encounter - Mila Sin LPN - 09/22/2023 2:58 PM EDT Received pt assistance medication. 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 cloth Placed in med room refrigerator documented in this encounter Plan of Treatment Upcoming Encounters Date Type Department Care Team (Latest Contact Info) Description 4 11:00 AM EDT Office Visit General Surgery, [facility] [address] [place] [address] Mariano Billingsley MD [address] [place] [address] 4 2:30 PM EDT Office Visit Pharmacy, [place] [address] [place] [address] [facility] [address] [place] [address] 4 1:30 PM EDT Immunization/Inje ction Hematology/Onco logy Treatment, [place] [address] [facility] [address] [place] [phone] Nurse, Med [address] [facility] [place] [address] 4 1:00 PM EDT Telemedicine Pharmacy, [facility] [address] [place] [address] [facility] [address] [place] [address] 4 9:10 AM EDT Office Visit Pharmacy, [place] [address] [place] [address] [facility] [address] [place] [address] 4 12:30 PM EDT Telemedicine Psychiatry, [facility] [address] [facility] [place] [address] Rj Mai MD [address] [place] [address] 4 9:20 AM EDT Office Visit Sleep Disorders Ctr [facility] [address] [facility] [place] [address] Lakisha Murcia, DO [address] [place] [address] 4 2:20 PM EDT Office Visit [facility] [address] [place] [address] Scott Weldon MD [address] [place] [address] 4 8:00 AM EDT Telemedicine Gastroenterolog , [facility] [address] [place] [address] Charlee Fields MD [address] [place] [address] 4 2:15 PM EDT Office Visit Hematology/Onco logy [facility] [place] [address] [place] [address] Sunil Bourgeois MD [address] [place] [address] 4 12:20 PM EDT Office Visit [facility] [address] [facility] [place] [address] Scott Weldon MD [address] [place] [address] 4 12:30 PM EDT Office Visit Ophthalmology, [facility] [address] [facility] [place] [address] Rolan Self, DO [address] [place] [address] 4 11:15 AM EDT Hospital Encounter ENDO [facility], Endoscopy Room [facility] [address] [place] [address] Aj Pruett, DO [address] [place], [place] [address] 4 11:15 AM EDT - 4 11:45 AM EDT Surgery ENDO [facility], Endoscopy Room [facility] [address] [place] [address] Aj Pruett, DO [address] [place] [address] ESOPHAGOGASTRODUODENOSCOPY (EGD), FLEXIBLE, TRANSORAL, DIAGNOSTIC 4 1:40 PM EST Office Visit Nephrology, [facility] [address] [facility] [address] [place] [address] Jonathan Mathew MD [address] [facility] [place] [address] Scheduled Procedures Name Priority Associated Diagnoses Date/Ti [...] this encounter Medical Devices Implanted Type Area Perishable Fruit Inspector Device Identifier Shelf Expiration Date Model / Serial / Lot Neurostimul Intellis Adaptiv - [id number] - [id number] Implanted:Qty: 1 on 08/22/2022 by Rafia Small MD at OR [facility] N/A: Spine Lumbar [employer] 06/21/2023 [id number] / [id number] / Description:battery Medtronic Lead Kit 60 Cm Implanted:Qty: 1 on 08/22/2022 by Rafia Small MD at OR [facility] N/A: Spine Lumbar 02/01/2026 [id number] / / [id number] Medtronic Lead Kit 60cm Implanted:Qty: 1 on 08/22/2022 by Rafia Small MD at OR [facility] N/A: Spine Lumbar 03/21/2026 [id number] / / [id number] Envelope Tyrx Med Antibacteril - [id number] Implanted:Qty: 1 on 08/22/2022 by Rafia Small MD at OR [facility] N/A: Spine Lumbar [employer] 03/10/2023 [id number] / / [id number] Hemostatic Clip Res 235cm - [id number] Implanted:Qty: 4 on 10/05/2023 by Aj Pruett DO at ENDOSCOPY [facility] : ENDOSCOPY 02/03/2026 [id number] / / Hemostatic Clip Res 235cm - [id number] Implanted:Qty: 1 on 10/05/2023 by Aj Pruett DO at ENDOSCOPY [facility] [employer] : ENDOSCOPY 02/02/2026 [id number] / / documented as of this encounter [...] the patient have Health Care Power of Nail Kegger? No Code Status History Code Status Date Activated Date Inactivated Comments Full Code 01/21/2011 12:12 PM 01/22/2011 8:48 PM This order reflects the patients wishes and were consensually agreed upon. Question Answer Comments Discussion of Advance Directives occurred with: Patient Does the patient have a Living Will? No Does the patient have Health Care Power of Nail Kegger? No Care Teams Captain Airline Pilot Relationship Specialty Start Date End Date Scott Weldon MD [address] [place] [address] [place] [address] PCP - General Family Medicine 08/03/18 documented as of this encounter
--- OUTSIDE RECORDS SUMMARY | 2024-02-02 08:54 | External Medical Summary | Summary of Care ---
Author Name Unknown Organization [facility] Address [address] [facility] [place] [address] Phone [phone] Care Team Providers Care Veneer Sander Name Role Phone Scott Weldon MD Primary Care Provider + Reason for Visit * Reason Comments Pain Dosage Adjustment Via Phone (anticoag Cl inic) Encounter Details Date Type Department Care Team (Late st Contact Info) Description 11/05/2023 1:00 PM EDT Telemedicine Pharmacy, [facility] [address] [facility] 132 [facility] [place] [address] Chronic pain syndrome*; Back spasm Allergies Active Allergy Reactions Criticality Noted Date Comments Naproxen Sodium Bleeding High 11/29/2013 Pollen 12/03/2022 Seasonal Food (See Comments) Anaphylaxis High 04/20/2019 Hot peppers (oils) Kiwi Extract Anaphylaxis High 04/20/2019 documented as of this encounter (statuses as of 11/05/2023) Medications Medication Sig Dispensed Refills Start Date [...] Strip 5 02/17/2017 Active Insulin Infusion Pump (MINIMTheraVid 630G INSULIN PUMP) KITIndications:Type 2 diabetes mellitus with hemoglobin A1c goal of less than 8.0% ([facility]) Use as directed. 07/30/2017 Active CPAP [...] suspected opioid overdose. Seek immediate medical attention. [email or web address] [email or web address]?v=[email or web address] [email or web address] 1 Each 3 11/27/2022 Active [...] Oxide 10 % External Cream Apply 1 [place] topically to affected area once. Apply to [...] as of this encounter (statuses as of 11/05/2023) Active Problems Problem Noted Date Diagnosed Date [...] as of this encounter (statuses as of 11/05/2023) Resolved Problems Problem Noted Date Diagnosed Date [...] Overview: Per Obesity Taxonomy Coronary atherosclerosis of [place] coronary artery 09/15/2008 10/03/2008 Malaise and fatigue [...] as of this encounter (statuses as of 11/05/2023) Immunizations Name Administration Dates Next Due COVID-19 mRNA, LNP-s, No Pre serve, 2-Dose Series (Escapio) 11/08/2020,10/11/2020 HEP A - Hepatitis A (Adult > 18 yrs) 04/11/2011, 09/20/2010 Hepatitis B, 20+ yrs 07/05/2015 Pneumococcal Conjugate Vacci ne, 20-valent ([id number]) 03/13/2023 Pneumococcal Polysaccharide PPV23 (Pneumovax) 02/19/2018,03/09/2007 Seasonal [...] Progress Notes * Radha Mckeon, [facility] - 11/05/2023 1:47 PM EDT I agree with documented plan of care. Radha Mckeon, Pharm D, [facility] Clinical Pharmacist 11/05/2023, 1:47 PM * Madhuri Beach, [facility] - 11/05/2023 1:01 PM EDT Images from the original note were not included. After connecting to the patient via telephone, the patient was identified by name and date of . Patient was then informed that this was a telephone call only visit. The patient agreed to participate. Visit Disposition: Routine follow-up Total call duration was 20 minutes. Medication Therapy Disease Management [facility] - Chronic Pain Management Progress Note 11/05/2023 Carmen Tyson, identified by name and date of , is a 53 year old female being seen for chronic pain management/education. Patient presents to pain MTM clinic for return visit. Referring Physician: Dr. Weldon Medication Agreement: on file Patient's Pharmacy: [facility] CHIEF COMPLAINT: RUQ Pain and back pain (radiating from shoulder blade down) Interval History: Notes PT copay is too unaffordable at this time Notes she is getting outside and walking more Notes has pain but nothing like prior to stimulator; feels stimulator helped significantly Notes "pain patch" helps Notes with current regimen pain is tolerable; still has bad days though Notes bad days are associated with when she does activities such as walking or gardening Discussed baclofen temporarily stopped in September due to EVA. Pt since then restarted all medication beside Jardiance. Pt has MTM DM appt 11/12 in which she plans to discuss Jardiance restart further. Pain described as: aching and dull, radiating, [...] risk) Daily MME: ~ 30 PDMP Reviewed (11/05/23): apprpriate Urine Toxicology Screen: 03/11/22-appropriate Pill Count: N/a Functional Goal: QOL Current Pain Level (11/05/23): stable Pain Level (08/06/23): [...] Creatinine Clearance: Serum creatinine: 1.3 mg/dL (H) 10/22/23 1153 Estimated creatinine clearance: 60.7 mL/min (A) Creatinine Results: Recent Labs Units 10/22/23 1153 10/02/23 1315 09/23/23 1427 CREATININE - [facility] mg/dL 1.3* 1.4* 2.1* Hepatic Function (ALT): Recent Labs Units 08/20/23 1127 12/03/22 1543 03/11/22 1329 ALT - [facility] U/L Comprehensive Metabolic Panel Results: Results for orders [...] to regimen. Treatment options: will continue same medication Treatment concerns: none at this time; per TE from nephro on 09/23 pt advised to stop due to EVA; kidney fn returned to baseline and therefore pt restarted baclofen weeks ago however not on medicationlist. Scr and CrCl since then slightly improved. Per CrCl, pt appropriate to continue current dose. Education provided: educated pt on monitoring of kidneys with current medication regimen. BMP appropriate. I have evaluated the patient for the [...] been exhibited. PLAN: Continue current pain medications Medication changes: no change Pain Medications: Baclofen 10 mg TID prn Lyrica 100 mg TID Butrans 5 mcg/hr every week *lunesta, trazodone, escitalopram, hydroxyzine Patient verbalized understanding of the plan. Contact clinic with any issues. FOLLOW UP: Return to clinic in 12 weeks Visit date not found Madhuri Beach PharmD PGY1 Director Of Informatics 11/05/2023 1:03 PM documented in this encounter Plan of Treatment Upcoming Encounters Date Type Department Care Team (Latest Contact Info) Description 9:10 AM EDT [facility] [facility] [place] [facility] [place] [address] [facility] [address] [place] [address] 4 12:30 PM EDT Telemedicine Psychiatry, Jorge Nora [address] [place], [place] [address] Rj Mai MD [address] [place] [address] 4 9:20 AM EDT Office Visit Sleep Disorders Ctr [facility] 132 [facility] [place] [phone] Lakisha Murcia DO [address] [place] [address] 4 2:20 PM EDT Office Visit Family Practice [facility] 132 [place] [address] Scott Weldon MD [address] [place] [address] 4 10:00 AM EDT Telemedicine Pharmacy, [facility] 132 [place] [address] [place] [facility] 132 [facility] [place] [address] 4 8:00 AM EDT Telemedicine Gastroenterolog y, [address] [address] Charlee Fields MD [address] [place] [address] 4 2:15 PM EDT Office Visit Hematology/Onco logy [place] [address] [place] [phone] Sunil Bourgeois MD [address] [place] [address] 4 12:20 PM EDT Office Visit Family Practice [facility] [address] [place] [address] Scott Weldon MD [address] [place] [address] 4 12:30 PM EDT Office Visit Ophthalmology, [facility] [address] [place] [address] Rolan Self, DO [address] [place] [address] 4 11:15 AM EDT Hospital Encounter ENDO [facility], Endoscopy Room [facility] [address] [place] [phone] Aj Pruett, DO [address] [place] [address] 4 11:15 AM EDT - 4 11:45 AM EDT Surgery ENDO [facility], Endoscopy Room [facility] [address] [place] [phone] Aj Pruett, DO [address] [place], [place] [address] ESOPHAGOGASTRODUODENOSCOPY (EGD), FLEXIBLE, TRANSORAL, DIAGNOSTIC 4 1:40 PM EST Office Visit Nephrology, [facility] [address] [place], [place] [address] Jonathan Mathew MD [address] [place] [address] Scheduled Procedures Name Priority Associated Diagnoses Date/Ti [...] this encounter Medical Devices Implanted Type Area Insurance Coordinator Device Identifier Shelf Expiration Date Model / Serial / Lot Neurostimul Intellis Adaptiv - [id number] - [id number] Implanted:Qty: 1 on 08/22/2022 by Rafia Small MD at OR [facility] N/A: Spine Lumbar [employer] 06/21/2023 [id number] / [id number] / Description:battery Medtronic Lead Kit 60 Cm Implanted:Qty: 1 on 08/22/2022 by Rafia Small MD at OR [facility] N/A: Spine Lumbar 02/01/2026 [id number] / / [id number] Medtronic Lead Kit 60cm Implanted:Qty: 1 on 08/22/2022 by Rafia Small MD at OR [facility] N/A: Spine Lumbar 03/21/2026 [id number] / / [id number] Envelope Tyrx Med Antibacteril - [id number] Implanted:Qty: 1 on 08/22/2022 by Rafia Small MD at OR [facility] N/A: Spine Lumbar [employer] 03/10/2023 [id number] / / [id number] Hemostatic Clip Res 235cm - [id number] Implanted:Qty: 4 on 10/05/2023 by Aj Pruett DO at ENDOSCOPY [facility] [employer] : ENDOSCOPY 02/03/2026 [id number] / / Hemostatic Clip Res 235cm - [id number] Implanted:Qty: 1 on 10/05/2023 by Aj Pruett DO at ENDOSCOPY [facility] [employer] : ENDOSCOPY 02/02/2026 [id number] / / documented as of this encounter Visit Diagnoses Diagnosis Chronic pain syndrome- Primary Back spasm Other symptoms referable to back [...] Power of Attor narda? No Care Teams Veneer Sander Relationship Specialty Start Date End Date Scott Weldon MD 132 [facility] [place] [address] PCP - General Family Medicine 08/03/18 documented as of this encounter
--- OUTSIDE RECORDS SUMMARY | 2024-02-02 08:54 | External Medical Summary | Summary of Care ---
Author Name Unknown Organization [facility] Address [address] [place] [address] Phone [phone] Care Team Providers Care Shipyard Helper Name Role Phone Soctt Weldon MD Primary Care Provider + Reason for Visit * Reason Comments Outpatient Testing Encounter Details Date Type Department Care Team (Late st Contact Info) Description 10/22/2023 11:50 AM EDT Laboratory Laboratory, [place] [address] [place] [address] [place], [facility] [address] [place] [address] Iron deficiency anemia, unspecified iron deficiency anemia type; Stage 3b chronic kidney disease (HCC); HTN, goal below 130/80 Allergies Active Allergy Reactions Criticality Noted Date Comments Naproxen Sodium Bleeding High 11/29/2013 Pollen 12/03/2022 Seasonal Food (See Comments) Anaphylaxis High 04/20/2019 Hot peppers (oils) Kiwi Extract Anaphylaxis High 04/20/2019 documented as of this encounter (statuses as of 10/22/2023) Medications Medication Sig Dispensed Refills Start Date End Date Status ONETOUCH ULTRASOFT LANCETS MISCIndications:DM type 2, not at goal ([facility]) check FS 6 times daily 4 [...] Strip 5 02/17/2017 Active Insulin Infusion Pump (MINIMSoftGenetics 630G INSULIN PUMP) KITIndications:Type 2 diabetes mellitus with hemoglobin A1c goal of less than 8.0% ([facility]) Use as directed. 0 07/30/2017 Active CPAP [...] Oxide 10 % External Cream Apply 1 [place] topically to affected area once. Apply to buttocks area as needed 0 Active Sucralfate 1 GM Oral Tablet (Carafate) Take 1 Tablet by mouth in the morning and 1 Tablet before bedtime. 120 Tablet 0 10/05/2023 Active hydrOXYzine HCl 25 MG Oral Tablet Take 1 tab during the day every 4-6 hours as needed for anxiety and take 2 tabs at bedtime as needed for anxiety 450 Tablet 1 10/12/2023 Active Furosemide 40 MG Oral Tablet (Lasix) Take 1 Tablet by mouth in the morning and 1 Tablet before bedtime. 0 10/13/2023 Active Potassium Chloride Laura ER 20 MEQ Oral Tablet Extended Release Take 1 Tablet by mouth in the morning. 0 10/13/2023 Active Magnesium Oxide -Mg Supplement 400 (240 Mg) MG Oral Tablet (Mag-Ox)Indications :Hypomagnesemia Take 1 Tablet by mouth in the morning. 90 Tablet 3 10/21/2023 Active Metoclopramide HCl 5 MG Oral Tablet (Reglan) Take 1 Tablet by mouth in the morning and 1 Tablet at noon and 1 Tablet in the evening. Take before meals. If needed for nausea. 30 Tablet 0 10/21/2023 Active Buprenorphine 5 MCG/HR Transdermal Patch Weekly (Butrans)Indication s:Controlled substance agreement signed,Chronic bilateral low back pain with sciatica, sciatica laterality unspecified,Chronic pain syndrome Place 1 Patch topically on the skin once a week. 4 Patch 0 10/21/2023 Active documented as of this encounter (statuses as of 10/22/2023) Active Problems Problem Noted Date Diagnosed Date [...] as of this encounter (statuses as of 10/22/2023) Resolved Problems Problem Noted Date Diagnosed Date [...] Overview: Per Obesity Taxonomy Coronary atherosclerosis of [place] coronary artery 09/15/2008 10/03/2008 Malaise and fatigue [...] as of this encounter (statuses as of 10/22/2023) Immunizations Name Administration Dates Next Due COVID-19 mRNA, LNP-s, No Pre serve, 2-Dose Series ([employer]) 11/08/2020,10/11/2020 HEP A - Hepatitis A (Adult > 18 yrs) 04/11/2011, 09/20/2010 Hepatitis B, 20+ yrs 07/05/2015 Pneumococcal Conjugate Vacci ne, 20-valent ([id number]) 03/13/2023 Pneumococcal Polysaccharide PPV23 (Pneumovax) 02/19/2018,03/09/2007 Seasonal [...] 11:00 AM EDT Office Visit General Surgery, [facility] [address] [place] [address] Mariano Billingsley MD [address] [place] [address] 4 2:30 PM EDT Office Visit Pharmacy, [address] [address] 4 1:30 PM EDT Immunization/Inje ction Hematology/Onco logy Treatment, [place] [address] [place] [phone] Nurse, Med 4 [address] [facility] [address] [place] [address] 4 1:00 PM EDT Telemedicine Pharmacy, [facility] [address] [place] [address] [place] [address] [place] [address] 4 9:10 AM EDT Office Visit Pharmacy, [place] [address] [place] [address] [facility] [address] [place] [address] 4 12:30 PM EDT Telemedicine Psychiatry, [facility] [address] [facility] [place], [place] [address] Rj Mai MD [address] [place], [place] [phone] 4 9:20 AM EDT Office Visit Sleep Disorders Ctr [facility] 132 [facility] [place] [phone] Lakisha Murcia DO [facility] [place] [address] 4 2:20 PM EDT Office Visit Family Practice [facility] 132 [facility] [place] [address] Scott Weldon MD 132 [facility] [place] [address] 4 8:00 AM EDT Telemedicine Gastroenterolog y, [address] [address] Charlee Fields MD [address] [place] [address] 4 2:15 PM EDT Office Visit Hematology/Onco logy [place] [address] [place] [phone] Sunil Bourgeois MD [address] [place] [address] 4 12:20 PM EDT Office Visit Family Practice [facility] [address] [place] [address] Scott Weldon MD [address] [place] [address] 4 12:30 PM EDT Office Visit Ophthalmology, [facility] [address] [place] [address] Rolan Self, DO [address] [place] [address] 4 11:15 AM EDT Hospital Encounter ENDO [facility], Endoscopy Room [facility] [address] [place] [phone] Aj Pruett, DO [address] [place] [address] 4 11:15 AM EDT - 4 11:45 AM EDT Surgery ENDO [facility], Endoscopy Room [facility] [address] [place] [phone] Aj Pruett, DO [address] [place] [address] ESOPHAGOGASTRODUODENOSCOPY (EGD), FLEXIBLE, TRANSORAL, DIAGNOSTIC 4 1:40 PM EST Office Visit NephrologyRoney [address] [place] [address] Jonathan Mathew MD [address] [place] [address] Pending Results Name Type Priority Associated Diagnoses Date /Time CBC WITH WBC DIFFERENTIAL Lab STAT Iron deficiency anemia, unspecified iron deficiency anemia type 10/22/2023 11:53 AM EDT FERRITIN Lab STAT Iron deficiency anemia, unspecified iron deficiency anemia type 10/22/2023 11:53 AM EDT IRON SCREEN, INCLUDING TIBC Lab STAT Iron deficiency anemia, unspecified iron deficiency anemia type 10/22/2023 11:53 AM EDT RENAL FUNCTION PANEL Lab Routine Stage 3b chronic kidney disease (HCC) 10/22/2023 11:53 AM EDT CBC Lab STAT Iron deficiency anemia, unspecified iron deficiency anemia type 10/22/2023 11:53 AM EDT DIFFERENTIAL, AUTOMATED Lab STAT Iron deficiency anemia, unspecified iron deficiency anemia type 10/22/2023 11:53 AM EDT Scheduled Procedures Name Priority Associated [...] 0 09/2022, 06/14/2020, Additional history exists GFR 10/01/2024 10/02/2023, 09/06, 09/08/2023, Additional history exists Pap Smear 09/07/2026 09/08/2023, [...] this encounter Medical Devices Implanted Type Area Cook Helper Preserves Device Identifier Shelf Expiration Date Model / Serial / Lot Neurostimul Intellis Adaptiv - [id number] - [id number] Implanted:Qty: 1 on 08/22/2022 by Rafia Small MD at OR [facility] N/A: Spine Lumbar [employer] 06/21/2023 [id number] / [id number] / Description:battery Medtronic Lead Kit 60 Cm Implanted:Qty: 1 on 08/22/2022 by Rafia Small MD at OR [facility] N/A: Spine Lumbar 02/01/2026 [id number] / / [id number] Medtronic Lead Kit 60cm Implanted:Qty: 1 on 08/22/2022 by Rafia Small MD at OR [facility] N/A: Spine Lumbar 03/21/2026 [id number] / / [id number] Envelope Tyrx Med Antibacteril - [id number] Implanted:Qty: 1 on 08/22/2022 by Rafia Small MD at OR [facility] N/A: Spine Lumbar [employer] 03/10/2023 [id number] / / [id number] Hemostatic Clip Res 235cm - [id number] Implanted:Qty: 4 on 10/05/2023 by Aj Pruett, DO at ENDOSCOPY [facility] : ENDOSCOPY 02/03/2026 [id number] / / Hemostatic Clip Res 235cm - [id number] Implanted:Qty: 1 on 10/05/2023 by Aj Pruett, DO at ENDOSCOPY [facility] : ENDOSCOPY 02/02/2026 [id number] / / documented as of this encounter Visit Diagnoses Diagnosis Iron deficiency anemia, unspecified iron deficiency anemia type Stage 3b chronic kidney disease (HCC) HTN, goal below 130/80 Unspecified essential hypertension Portal hypertensive gastropathy (HCC) Other specified disorder of stomach and duodenum Multiple gastric polyps Benign neoplasm of stomach documented in this encounter Advance Directives Latest [...] the patient have Health Care Power of Wooden Fence Erector? No Code Status History Code Status Date Activated Date Inactivated Comments Full Code 01/21/2011 12:12 PM 01/22/2011 8:48 PM This order reflects the patients wishes and were consensually agreed upon. Question Answer Comments Discussion of Advance Directives occurred with: Patient Does the patient have a Living Will? No Does the patient have Health Care Power of Wooden Fence Erector? No Care Teams Shipyard Helper Relationship Specialty Start Date End Date Scott Weldon MD [address] [place] [address] PCP - General Family Medicine 08/03/18 documented as of this encounter
--- OUTSIDE RECORDS SUMMARY | 2024-02-02 08:54 | External Medical Summary | Summary of Care ---
Author Name Unknown Organization [facility] Address 100 [facility] [place] [address] Phone [phone] Care Team Providers Care Pocket Setter Lockstitch Name Role Phone Scott Weldon MD Primary Care Provider + Encounter Details Date Type Department Care Team (Late st Contact Info) Description 10/27/2023 Population Health External Data Unspecified Department Allergies Active Allergy Reactions Criticality Noted Date Comments Naproxen Sodium Bleeding High 11/29/2013 Pollen 12/03/2022 Seasonal Food (See Comments) Anaphylaxis High 04/20/2019 Hot peppers (oils) Kiwi Extract Anaphylaxis High 04/20/2019 documented as of this encounter (statuses as of 10/28/2023) Medications Medication Sig Dispensed Refills Start Date [...] 8.0% ([facility]) Use as directed. 07/30/2017 Active CPAP every [...] suspected opioid overdose. Seek immediate medical attention. [email or web address]://[email or web address]/watch?v=v26cDa [email or web address] 1 Each 3 11/27/2022 Active [...] 8.0% (HCC),DM type 2, not at goal ([facility] [...] Oxide 10 % External Cream Apply 1 [place] topically to affected area once. Apply to [...] once a week. 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 08/20/2023 Hyperlipidemia 08/20/2023 Esophageal varices without [...] as of this encounter (statuses as of 10/28/2023) Resolved Problems Problem Noted Date Diagnosed Date [...] Overview: Per Obesity Taxonomy Coronary atherosclerosis of [place] coronary artery 09/15/2008 10/03/2008 Malaise and fatigue [...] as of this encounter (statuses as of 10/28/2023) Immunizations Name Administration Dates Next Due COVID-19 mRNA, LNP-s, No Pre serve, 2-Dose Series ([email or web address]) 11/08/2020,10/11/2020 HEP A - Hepatitis A (Adult > 18 yrs) 04/11/2011, 09/20/2010 Hepatitis B, 20+ yrs 07/05/2015 Pneumococcal Conjugate Vacci ne, 20-valent ([id number]) 03/13/2023 Pneumococcal Polysaccharide PPV23 (Pneumovax) 02/19/2018,03/09/2007 Seasonal [...] Care Team (Latest Contact Info) Description 4 1:30 PM EDT Immunization/Inje ction Hematology/Onco logy Treatment, [place] 200 [facility] [place] [phone] Nurse, Med 200 [facility] [place] [address] 4 1:00 PM EDT Telemedicine Pharmacy, [facility] 132 PsychiatricDEBORAH [place] [address] [place] [address] 4 9:10 AM EDT Office Visit Pharmacy, [address] [address] 4 12:30 PM EDT Telemedicine Psychiatry, [facility] 200 [facility] [place] [address] Rj Mai MD [address] [place] [address] 4 9:20 AM EDT Office Visit Sleep Disorders Ctr Keith Rose [place] 132 [facility] [place] [phone] Lakisha Murcia DO [address] [place] [address] 4 2:20 PM EDT Office Visit Family Practice [facility] 132 [place] [address] Scott Weldon MD [address] [place] [address] 4 8:00 AM EDT Telemedicine Gastroenterolog y, [facility] 4200 [facility] [place] [address] Charlee Fields MD [address] [place] [address] 4 2:15 PM EDT Office Visit Hematology/Onco logy [facility] [address] [place] [phone] Sunil Bourgeois MD [address] [place] [address] 4 12:20 PM EDT Office Visit Family Practice [facility] [place] [address] Scott Weldon MD [address] [place] [address] 4 12:30 PM EDT Office Visit Ophthalmology, [facility] [address] [place] [address] Rolan Self, DO 21 [facility] [place] [address] 4 11:15 AM EDT Hospital Encounter ENDO [facility], Endoscopy Room [facility] [address] [phone] Aj Pruett, DO 132 [place] [address] 4 11:15 AM EDT - 4 11:45 AM EDT Surgery ENDO [facility], Endoscopy Room [facility] [address] [place] [address] Aj Pruett DO [address] [place] [address] ESOPHAGOGASTRODUODENOSCOPY (EGD), FLEXIBLE, TRANSORAL, DIAGNOSTIC 4 1:40 PM EST Office Visit Nephrology, [facility] 200 [facility] [place] [address] Jonathan Mathew MD 200 [facility] [place] [address] Scheduled Procedures Name Priority Associated Diagnoses Date/Ti [...] 03/11/2022, Additional history exists Mammogram 09/01/2024 09/02/2023, 11/, 01/21/2016 B-12 09/07/2024 09/08/2023, /0 09/2022, 06/14/2020, Additional history exists GFR 10/21/2024 [...] this encounter Medical Devices Implanted Type Area Top Precipitator Operator Helper Device Identifier Shelf Expiration Date Model / Serial / Lot Neurostimul Intellis Adaptiv - [id number] - [id number] Implanted:Qty: 1 on 08/22/2022 by Rafia Small MD at OR [facility] N/A: Spine Lumbar [employer] 06/21/2023 [id number] / [id number] / Description:battery Medtronic Lead Kit 60 Cm Implanted:Qty: 1 on 08/22/2022 by Rafia Small MD at OR [facility] N/A: Spine Lumbar 02/01/2026 [id number] / / [id number] Medtronic Lead Kit 60cm Implanted:Qty: 1 on 08/22/2022 by Rafia Small MD at OR [facility] N/A: Spine Lumbar 03/21/2026 [id number] / / [id number] Envelope Tyrx Med Antibacteril - [id number] Implanted:Qty: 1 on 08/22/2022 by Rafia Small MD at OR [facility] N/A: Spine Lumbar [employer] 03/10/2023 [id number] / / [id number] Hemostatic Clip Res 235cm - [id number] Implanted:Qty: 4 on 10/05/2023 by Aj Pruett DO at ENDOSCOPY [facility] : END[facility]COPY 02/03/2026 [id number] / / Hemostatic Clip Res 235cm - [id number] Implanted:Qty: 1 on 10/05/2023 by Aj Pruett DO at ENDOSCOPY [facility] : ENDOSCOPY 02/02/2026 [id number] / / documented as of this encounter [...] Power of Attor narda? No Care Teams Pocket Setter Lockstitch Relationship Specialty Start Date End Date Scott Weldon MD 132 [address] [address] PCP - General Family Medicine 08/03/18 documented as of this encounter
--- OUTSIDE RECORDS SUMMARY | 2024-02-02 08:54 | External Medical Summary | Summary of Care ---
Author Name Unknown Organization [facility] Address 100 [facility] [place] [address] Phone [phone] Care Team Providers Care Wellness Manager Name Role Phone Scott Weldon MD Primary Care Provider + Reason for Visit * Reason Onset Date Comments Test Results 10/23/2023 Encounter Details Date Type Department Care Team (Late st Contact Info) Description 10/23/2023 Telephone NephrologyRoney [address] [place] [address] Jonathan Mathew MD 200 [facility] [place] [address] Test Results Allergies Active Allergy Reactions Criticality [...] Strip 5 02/17/2017 Active Insulin Infusion Pump (MINIMCurex.Co 630G INSULIN PUMP) KITIndications:Type 2 diabetes mellitus with hemoglobin A1c goal of less than 8.0% ([facility]) Use as directed. 0 07/30/2017 [...] suspected opioid overdose. Seek immediate medical attention. [email or web address]?v=v26cDa [email or web address] 1 Each 3 11/27/2022 Active [...] 8.0% (HCC),DM type 2, not at goal ([facility] [...] Oxide 10 % External Cream Apply 1 [place] topically to affected area once. Apply to [...] Overview: Per Obesity Taxonomy Coronary atherosclerosis of [place] coronary artery 09/15/2008 10/03/2008 Malaise and fatigue [...] mRNA, LNP-s, No Pre serve, 2-Dose Series ([facility]) 11/08/2020,10/11/2020 HEP A - Hepatitis A (Adult > 18 yrs) 04/11/2011, 09/20/2010 Hepatitis B, 20+ yrs 07/05/2015 Pneumococcal Conjugate Vacci ne, 20-valent (Jbcozjx71) 03/13/2023 Pneumococcal Polysaccharide PPV23 (Pneumovax) 02/19/2018,03/09/2007 Seasonal [...] encounter Miscellaneous Notes * Telephone Encounter - Zora Nunn LPN - 10/23/2023 11:40 AM EDT Pt is aware * Telephone Encounter - Zora Nunn LPN - 10/23/2023 11:16 AM EDT Pt is advised of test results She has started both Lasix and Potasium as ordered She denies lower extremity edema States BP is improving "Not as low as before" Pt is advisedthat I will send this infoto DR Mathew for his further recommendations Pt is advised via MyG BP readings for review * Telephone Encounter - Zora Nunn LPN - 10/23/2023 11:16 AM EDT ----- Message from Jonathan Mathew MD sent at 10/23/2023 10:24 AM EDT ----- Kidney function even better. Confirm she started lasix and kcl as advised few days ago. Ask about edema and BP ? Further advice after that documented in this encounter Plan of Treatment Upcoming Encounters Date Type Department Care Team (Latest Contact Info) Description 11:00 AM EDT Office Visit General Surgery, [facility] 132 [place] [address] Mariano Billingsley MD 132 [facility] [address] 4 2:30 PM EDT Office Visit Pharmacy, [place] [address] [place] [address] [facility] [address] [place] [address] 4 1:30 PM EDT Immunization/Inje ction Hematology/Onco logy Treatment, [place] [address] [facility] [address] [place] [phone] Nurse, Med [address] [place] [address] [place] [address] 4 1:00 PM EDT Telemedicine Pharmacy, [facility] 132 [place] [address] [facility] 132 [place] [address] 4 9:10 AM EDT Office Visit Pharmacy, [place] [address] [place] [address] [facility] [address] [place] [address] 4 12:30 PM EDT Telemedicine Psychiatry, [facility] 200 [facility] [place] [address] Rj Mai MD [address] [place] [address] 4 9:20 AM EDT Office Visit Sleep Disorders Ctr [facility] 132 [facility] [place] [address] Lakisha Murcia, DO [address] [place] [address] 4 2:20 PM EDT Office Visit [facility] [address] [place] [address] Scott Weldon MD [address] [place] [address] 4 8:00 AM EDT Telemedicine Gastroenterolog , [facility] [address] [place] [address] Charlee Fiedls MD [address] [place] [address] 4 2:15 PM EDT Office Visit Hematology/Onco logy [place] Melendez [place] [address] [place] [address] Sunil Bourgeois MD [address] [place] [address] 4 12:20 PM EDT [facility] Visit [facility] 132 [facility] [place] [address] Scott Weldon MD [address] [place] [address] 4 12:30 PM EDT Office Visit Ophthalmology, [facility] 132 [facility] [place] [address] Rolan Self, DO [facility] [place] [address] 4 11:15 AM EDT Hospital Encounter ENDO [facility], Endoscopy Room [facility] [address] [place], [place] [address] Aj Pruett, DO [address] [place], [place] [address] 4 11:15 AM EDT - 4 11:45 AM EDT Surgery ENDO [facility], Endoscopy Room [facility] [address] [place] [address] Aj Pruett, DO [address] [place] [address] ESOPHAGOGASTRODUODENOSCOPY (EGD), FLEXIBLE, TRANSORAL, DIAGNOSTIC 4 1:40 PM EST Office Visit Nephrology, [facility] 200 [facility] [place] [address] Jonathan Mathew MD 200 [facility] [place] [address] Scheduled Procedures Name Priority Associated Diagnoses Date/Ti [...] this encounter Medical Devices Implanted Type Area Joint Cutter Machine Device Identifier Shelf Expiration Date Model / Serial / Lot Neurostimul Intellis Adaptiv - [id number] - [id number] Implanted:Qty: 1 on 08/22/2022 by Rafia Small MD at OR [facility] N/A: Spine Lumbar [employer] 06/21/2023 [id number] / [id number] / Description:battery Medtronic Lead Kit 60 Cm Implanted:Qty: 1 on 08/22/2022 by Rafia Small MD at OR [facility] N/A: Spine Lumbar 02/01/2026 [id number] / / [id number] Medtronic Lead Kit 60cm Implanted:Qty: 1 on 08/22/2022 by Rafia Small MD at OR [facility] N/A: Spine Lumbar 03/21/2026 [id number] / / [id number] Envelope Tyrx Med Antibacteril - [id number] Implanted:Qty: 1 on 08/22/2022 by Rafia Small MD at OR [facility] N/A: Spine Lumbar [employer] 03/10/2023 [id number] / / [id number] Hemostatic Clip Res 235cm - [id number] Implanted:Qty: 4 on 10/05/2023 by Aj Pruett DO at ENDOSCOPY [facility] : ENDOSCOPY 02/03/2026 [id number] / / Hemostatic Clip Res 235cm - [id number] Implanted:Qty: 1 on 10/05/2023 by Aj Pruett DO at ENDOSCOPY [facility] : ENDOSCOPY 02/02/2026 [id number] / / documented as of this encounter [...] the patient have Health Care Power of Adult Basic Studies Teacher? No Code Status History Code Status Date Activated Date Inactivated Comments Full Code 01/21/2011 12:12 PM 01/22/2011 8:48 PM This order reflects the patients wishes and were consensually agreed upon. Question Answer Comments Discussion of Advance Directives occurred with: Patient Does the patient have a Living Will? No Does the patient have Health Care Power of Adult Basic Studies Teacher? No Care Teams Wellness Manager Relationship Specialty Start Date End Date Scott Weldon MD [address] [place] [address] [place] [address] PCP - General Family Medicine 08/03/18 documented as of this encounter
--- OUTSIDE RECORDS SUMMARY | 2024-02-02 08:54 | External Medical Summary | Summary of Care ---
Author Name Unknown Organization [facility] Address 100 [facility] [place] [address] Phone [phone] Care Team Providers Care Shake Feeder Name Role Phone Scott Weldon MD Primary Care Provider + Reason for Visit * Reason Comments Pain Dosage Adjustment Via Phone (anticoag Cl inic) Encounter Details Date Type Department Care Team (Late st Contact Info) Description 11/05/2023 1:00 PM EDT Telemedicine Pharmacy, [facility] 132 [facility] [address] [facility] 132 [facility] [place] [address] Chronic pain syndrome*; Back spasm Allergies Active [...] Strip 5 02/17/2017 Active Insulin Infusion Pump (MINIMConversocial 630G INSULIN PUMP) KITIndications:Type 2 diabetes mellitus [...] suspected opioid overdose. Seek immediate medical attention. [email or web address] 1 Each 3 11/27/2022 Active [...] Oxide 10 % External Cream Apply 1 [place] topically to affected area once. Apply to [...] mRNA, LNP-s, No Pre serve, 2-Dose Series ([employer]Knows) 11/08/2020,10/11/2020 HEP A - Hepatitis A (Adult > 18 yrs) 04/11/2011, 09/20/2010 Hepatitis B, 20+ yrs 07/05/2015 Pneumococcal Conjugate Vacci ne, 20-valent (Tgojnmt21) 03/13/2023 Pneumococcal Polysaccharide PPV23 (Pneumovax) 02/19/2018,03/09/2007 Seasonal [...] this encounter Progress Notes * Radha Mckeon, [facility] - 11/05/2023 1:47 PM EDT I agree with documented plan of care. Radha Mckeon, Pharm D, [facility] Clinical Pharmacist 11/05/2023, 1:47 PM * Madhuri Beach, [facility] - 11/05/2023 1:01 PM EDT Images from [...] Weldon Medication Agreement: on file Patient's Pharmacy: [facility] CHIEF COMPLAINT: RUQ Pain and [...] date not found Madhuri Beach PharmD PGY1 Lime Burner 11/05/2023 1:03 PM documented in this encounter Plan of Treatment Upcoming Encounters Date Type Department Care Team (Latest Contact Info) Description 9:10 AM EDT [facility] [place] [address] Jay[facility] [address] [place] [address] 4 12:30 PM EDT Telemedicine Psychiatry, Jorge Nora [address] [place], [place] [address] Rj Mai MD [address] [place] [address] 4 9:20 AM EDT Office Visit Sleep Disorders Ctr [facility] 132 [place] [phone] Lakisha Murcia DO [address] [place] [address] 4 2:20 PM EDT Office Visit Family Practice [facility] 132 [facility] [place] [address] Scott Weldon MD [address] [place] [address] 4 10:00 AM EDT Telemedicine Pharmacy, [facility] 132 [facility] [place] [address] [facility] 132 [place] [address] 4 8:00 AM EDT Telemedicine Gastroenterolog y, [address] [address] Charlee Fields MD [address] [place] [address] 4 2:15 PM EDT Office Visit Hematology/Onco logy Roney [place] [address] [place] [phone] Sunil Bourgeois MD [address] [place] [address] 4 12:20 PM EDT Office Visit Family Practice [facility] [address] [place] [address] Scott Weldon MD [address] [place] [address] 4 12:30 PM EDT Office Visit Ophthalmology, [facility] [address] [place] [address] Rolan Self, DO [address] [place] [address] 4 11:15 AM EDT Hospital Encounter ENDO [facility], Endoscopy Room [facility] [address] [place] [phone] Aj Pruett, DO [address] [place] [address] 4 11:15 AM EDT - 4 11:45 AM EDT Surgery ENDO [facility], Endoscopy Room [facility] [address] [place] [phone] Aj Pruett, DO [address] [place], [place] [address] ESOPHAGOGASTRODUODENOSCOPY (EGD), FLEXIBLE, TRANSORAL, DIAGNOSTIC 4 1:40 PM EST Office Visit Nephrology, [facility] [address] [place], [place] [address] Jonathan Mathew MD [address] [place] [address] Scheduled Procedures Name Priority Associated Diagnoses Date/Ti [...] this encounter Medical Devices Implanted Type Area Take Up Supervisor Device Identifier Shelf Expiration Date Model / Serial / Lot Neurostimul Intellis Adaptiv - [id number] - [id number] Implanted:Qty: 1 on 08/22/2022 by Rafia Small MD at OR [facility] N/A: Spine Lumbar [employer] 06/21/2023 [id number] / [id number] / Description:battery Medtronic Lead Kit 60 Cm Implanted:Qty: 1 on 08/22/2022 by Rafia Small MD at OR [facility] N/A: Spine Lumbar 02/01/2026 [id number] / / [id number] Medtronic Lead Kit 60cm Implanted:Qty: 1 on 08/22/2022 by Rafia Small MD at OR [facility] N/A: Spine Lumbar 03/21/2026 [id number] / / [id number] Envelope Tyrx Med Antibacteril - [id number] Implanted:Qty: 1 on 08/22/2022 by Rafia Small MD at OR [facility] N/A: Spine Lumbar [employer] 03/10/2023 [id number] / / [id number] Hemostatic Clip Res 235cm - [id number] Implanted:Qty: 4 on 10/05/2023 by Aj Pruett DO at ENDOSCOPY [facility] : ENDOSCOPY 02/03/2026 [id number] / / Hemostatic Clip Res 235cm - [id number] Implanted:Qty: 1 on 10/05/2023 by Aj Pruett DO at ENDOSCOPY [facility] : ENDOSCOPY 02/02/2026 [id number] / / documented as of this encounter [...] Power of Attor narda? No Care Teams Shake Feeder Relationship Specialty Start Date End Date Scott Weldon MD 132 [facility] [place] [address] PCP - General Family Medicine 08/03/18 documented as of this encounter
--- OUTSIDE RECORDS SUMMARY | 2024-02-02 08:55 | External Medical Summary ---
Author Name Unknown Address Unknown Organization [id number]:[facility] [place] [address] [facility] [place] [address] Laboratory Report Ordering Provider Test Date Status LUIS ANTONIO LEIVA 10/22/2023 11:53:13 Final Observation Date Value Abnormality Reference (Units ) Status SYNC LEUKOCYTES IN BLOOD BY AUTOMATED COUNT 10/22/2023 11:53:13 8.00 4.00-10.80 (K/uL) Final Segs 10/22/2023 11:53:13 70.8 40.0-75.0 (%) Final Lymphs % 10/22/2023 11:53:13 18.4 18.0-42.0 (%) Final Monos 10/22/2023 11:53:13 7.0 1.0-11.0 (%) Final Eosinophils 10/22/2023 11:53:13 2.6 0.0-6.0 (%) Final Basos 10/22/2023 11:53:13 0.9 0.0-2.0 (%) Final Immature Granulocyte, Percent 10/22/2023 11:53:13 0.3 0.0-2.0 (%) Final Absolute Segs 10/22/2023 11:53:13 5.67 1.80-7.70 (K/uL) Final Lymphs, absolute 10/22/2023 11:53:13 1.47 1.00-4.80 (K/ul) Final Monos, Abs 10/22/2023 11:53:13 0.56 0.00-1.10 (K/uL) Final Eos, Abs 10/22/2023 11:53:13 0.21 0.00-0.70 (K/uL) Final Basos, Abs 10/22/2023 11:53:13 0.07 0.00-0.20 (K/uL) Final Immature Granulocytes, Number 10/22/2023 11:53:13 0.02 0.00-0.20 (K/uL) Final Performing Location [facility] [place] [facility] [place] [address]
--- OUTSIDE RECORDS SUMMARY | 2024-02-02 08:55 | External Medical Summary ---
Author Name Unknown Address Unknown Organization [id number]:[facility] [place] - [address] [facility] [place] [address] Laboratory Report Ordering Provider Test Date Status LUIS ANTONIO LEIVA 10/22/2023 11:53:13 Final Observation Date Value Abnormality Reference (Units ) Status Ferritin 10/22/2023 11:53:13 131 13-150 (ng /mL) Final Postmenopausal women have hi gher ferritin levels than pre-menopausal women. The above reference interval is based on pre-menopausal women. Performing Location LAB[facility]ORY [facility] [place] - [address] [place] [address]
--- OUTSIDE RECORDS SUMMARY | 2024-02-02 08:55 | External Medical Summary ---
Author Name Unknown Address Unknown Organization [id number]:[facility] [facility] [place] [facility] [address] [facility] [address] [place] [address] Laboratory Report Ordering Provider Test Date Status LUIS ANTONIO LEIVA 10/22/2023 11:53:13 Final Observation Date Value Abnormality Reference (Units ) Status WBC, Total 10/22/2023 11:53:13 8.00 4.00-10.80 (K/uL) Final RBC 10/22/2023 11:53:13 4.10 3.85-5.15 (M/uL) Final Hemoglobin 10/22/2023 11:53:13 11.6 Below low normal 12.0-15.3 (g/dL) Final HCT 10/22/2023 11:53:13 36.7 36.0-45.2 (%) Final MCV 10/22/2023 11:53:13 89.5 81.5-97.5 (fL) Final MCH 10/22/2023 11:53:13 28.3 27.0-34.0 (pg) Final MCHC 10/22/2023 11:53:13 31.6 32.0-36.0 (g/dL) Final RDW 10/22/2023 11:53:13 14.6 11.5-15.5 (%) Final Platelets 10/22/2023 11:53:13 105 Below low normal 140-400 (K/uL) Final MPV 10/22/2023 11:53:13 10.7 6.6-11.1 (fL) Final Nucleated erythrocytes/100 leukocytes [Ratio] in Blood by Automated count 10/22/2023 11:53:13 0 <=0 (/100 WBCs) Final Performing Location [facility] [place] [facility] [place] [address] [place] [address]
--- OUTSIDE RECORDS SUMMARY | 2024-02-02 08:55 | External Medical Summary | Summary of Care ---
Author Name Unknown Organization [facility] Address [address] [place] [place] [address] Phone [phone] Care Team Providers Care Longwall Shearer Operator Name Role Phone Scott Weldon MD Primary Care Provider + Reason for Visit * Reason Onset Date Comments Medication Discussion 10/14/2023 Encounter Details Date Type Department Care Team (Late st Contact Info) Description 10/14/2023 Telephone Pharmacy, [address] [address] [facility] [address] [place] [address] Medication Discussion Allergies Active Allergy Reactions Criticality Noted Date Comments Naproxen Sodium Bleeding High 11/29/2013 Pollen 12/03/2022 Seasonal Food (See Comments) Anaphylaxis High 04/20/2019 Hot peppers (oils) Kiwi Extract Anaphylaxis High 04/20/2019 documented as of this encounter (statuses as of 10/14/2023) Medications Medication Sig Dispensed Refills Start Date [...] Strip 5 02/17/2017 Active Insulin Infusion Pump ([email or web address] 630G INSULIN PUMP) KITIndications:Type 2 diabetes mellitus with hemoglobin A1c goal of less than 8.0% ([facility]) Use as directed. 0 07/30/2017 Active CPAP every night at bedtime. 0 Active Glucagon Emergency 1 MG Injection Kit As directed 1 Kit 3 09/04/2022 Active Magnesium Oxide 400 (240 Mg) MG Oral Tablet (Mag-Ox)Indications :Hypomagnesemia TAKE 1 TABLET BY MOUTH EVERY DAY 90 Tablet 3 10/05/2022 Active Dicyclomine HCl 20 MG Oral Tablet [...] For allergies.,Indications: as needed, Reported on 10/01/2023 Metoclopramide HCl 5 MG Oral Tablet (Reglan) [...] A1c goal of less than 8.0% ([facility]),DM type 2, not at goal ([facility]) INJECT UP TO 200 UNITS SUBCUTANEOSULY ONCE [...] OF BREATH 18 g 2 09/16/2023 Active Buprenorphine 5 MCG/HR Transdermal Patch Weekly (Butrans)Indication s:Controlled substance agreement signed,Chronic bilateral low back pain with sciatica, sciatica laterality unspecified,Chronic pain syndrome Place 1 Patch topically on the skin once a week. 4 Patch 0 09/23/2023 Active Additional Information Patient taking differently:1 Patch Transdermal QWEEK,Indications: on sundays, Reported on 10/01/2023 Eszopiclone 2 MG Oral Tablet (Lunesta) Take 1 Tablet by mouth at bedtime. 30 Tablet 1 09/28/2023 Active Zinc Oxide 10 % External Cream Apply 1 [place] topically to affected area once. Apply to [...] mouth in the morning. 0 10/13/2023 Active documented as of this encounter (statuses as of 10/14/2023) Active Problems Problem Noted Date Diagnosed Date [...] as of this encounter (statuses as of 10/14/2023) Resolved Problems Problem Noted Date Diagnosed Date [...] as of this encounter (statuses as of 10/14/2023) Immunizations Name Administration Dates Next Due COVID-19 mRNA, LNP-s, No Pre serve, 2-Dose Series (mobiliThink) 11/08/2020,10/11/2020 HEP A - Hepatitis A (Adult > 18 yrs) 04/11/2011, 09/20/2010 Hepatitis B, 20+ yrs 07/05/2015 Pneumococcal Conjugate Vacci ne, 20-valent ([id number]) 03/13/2023 Pneumococcal Polysaccharide PPV23 (Pneumovax) 02/19/2018,03/09/2007 Seasonal [...] Notes * Telephone Encounter - Danielle Anderson [facility] - 10/14/2023 8:[address] Mathew- I am reaching out to see if you would be agreeable to this patient resuming her jardiance? It was included in the medications patient was advised to stop when her BMP showed renal function decline on 09/23/23. Aldactone, losartan, and jardiance are curently still on hold. It looks like lasix and potassium were the only two that she was instructed to restart as of yesterday. She also remains on Baclofen. Please advise if patient is able to resume Jardiance. Thank you! Danielel Anderson, PharmD, BCACP Clinical Pharmacist Medication Therapy Disease Management 10/14/2023, 8:50 AM documented in this encounter Plan of Treatment Upcoming Encounters Date Type Department Care Team (Latest Contact Info) Description 4 3:15 PM EDT Office Visit General Surgery, [facility] [address] [place] [address] Mariano Billingsley MD [address] [place] [address] 4 9:00 AM EDT Office Visit Pharmacy, [place] [address] [facility], [place] [address] [facility] [address] [facility] [place] [address] 4 10:30 AM EDT Laboratory Laboratory, [place] [address] [facility], [place] [address] [facility] [address] [facility], [place] [address] 4 1:30 PM EDT Immunization/Inje ction Hematology/Onco logy Treatment, [place] [address] [facility] [address] [place] [address] Nurse, Med [address] [facility] [place] [address] 4 1:00 PM EDT Telemedicine Pharmacy, [facility] [address] [place] [address] 4 9:10 AM EDT Office Visit Pharmacy, [place] [address] [facility] [place] [address] [facility] [address] [facility] [place] [address] 4 12:30 PM EDT Telemedicine Psychiatry, [facility] [address] [facility] [place] [address] Rj Mai MD [address] [place] [address] 4 9:20 AM EDT Office Visit [facility] 132 [facility] [place] [address] Lakisha Murcia, DO 132 [facility] [place] [address] 4 2:20 PM EDT Office Visit [facility] 132 [facility] [place] [address] Scott Weldon MD 132 [facility] [place] [address] 4 8:00 AM EDT Telemedicine Gastroenterolog y, [address] [address] Charlee Fields MD [address] [place], [place] [address] 4 2:15 PM EDT Office Visit Hematology/Onco logy [facility] [address] [place] [address] Sunil Bourgeois MD [address] [place] [address] 4 12:20 PM EDT Office Visit [facility] 132 [facility] [place] [address] Scott Weldon MD 132 [facility] [place] [address] 4 12:30 PM EDT Office Visit Ophthalmology, [facility] 132 [facility] [place] [address] Rolan Self, DO [address] [facility] [place] [address] 4 11:15 AM EDT Hospital Encounter ENDO [facility], Endoscopy Room [facility] [address] [place], [place] [address] Aj Pruett, DO [address] [place], [place] [address] 4 11:15 AM EDT - 4 11:45 AM EDT Surgery ENDO [facility], Endoscopy Room [facility] [address] [place], [place] [address] Aj Pruett, DO [address] [place], [place] [address] ESOPHAGOGASTRODUODENOSCOPY (EGD), FLEXIBLE, TRANSORAL, DIAGNOSTIC 4 10:40 AM EST Office Visit Nephrology, [facility] [address] [facility] [place] [address] Jonathan Mathew MD [address] [facility] [place], [place] [address] Scheduled Procedures Name Priority Associated Diagnoses Date/Ti [...] (3 - 2022- season) 2023 11/08/2020, 10/11/2020 Zoster Vaccines (2 of 2) 06/14/2023 04/19/2023 HbA1c 01/21/2024 07/23/2023, 02/06, 06/11/2022, Additional history exists Diabetic Foot Exam 03/13/2024 03/13/2023, 0 10/03/2021, 11/07/2019, Additional history exists Albumin/Creatinine Ratio 07/23/2024 024, 04/06/2023, 03/11/2022, Additional history exists Mammogram 09/01/2024 09/02/2023, 04/10, 01/21/2016 B-12 09/07/2024 09/08/2023, 09/2022, 06/14/2020, Additional history exists GFR 10/01/2024 [...] this encounter Medical Devices Implanted Type Area Research Lab Assistant Device Identifier Shelf Expiration Date Model / Serial / Lot Neurostimul Intellis Adaptiv - [id number] - [id number] Implanted:Qty: 1 on 08/22/2022 by Rafia Small MD at OR [facility] N/A: Spine Lumbar [employer] 06/21/2023 [id number] / [id number] / Description:battery Medtronic Lead Kit 60 Cm Implanted:Qty: 1 on 08/22/2022 by Rafia Small MD at OR [facility] N/A: Spine Lumbar 02/01/2026 [id number] / / [id number] Medtronic Lead Kit 60cm Implanted:Qty: 1 on 08/22/2022 by Rafia Small MD at OR [facility] N/A: Spine Lumbar 03/21/2026 [id number] / / [id number] Envelope Tyrx Med Antibacteril - [id number] Implanted:Qty: 1 on 08/22/2022 by Rafia Small MD at OR [facility] N/A: Spine Lumbar [employer] 03/10/2023 [id number] / / [id number] Hemostatic Clip Res 235cm - [id number] Implanted:Qty: 4 on 10/05/2023 by Aj Pruett DO at ENDOSCOPY [facility] : ENDOSCOPY 02/03/2026 [id number] / / Hemostatic Clip Res 235cm - [id number] Implanted:Qty: 1 on 10/05/2023 by Aj Pruett DO at ENDOSCOPY [facility] : ENDOSCOPY 02/02/2026 [id number] / / documented as of this encounter [...] the patient have Health Care Power of Oil Burner Mechanic? No Code Status History Code Status Date Activated Date Inactivated Comments Full Code 01/21/2011 12:12 PM 01/22/2011 8:48 PM This order reflects the patients wishes and were consensually agreed upon. Question Answer Comments Discussion of Advance Directives occurred with: Patient Does the patient have a Living Will? No Does the patient have Health Care Power of Oil Burner Mechanic? No Care Teams Longwall Shearer Operator Relationship Specialty Start Date End Date Scott Weldon MD [address] [place] [address] PCP - General Family Medicine 08/03/18 documented as of this encounter
--- OUTSIDE RECORDS SUMMARY | 2024-02-02 08:55 | External Medical Summary ---
Author Name Unknown Address Unknown Organization K[facility] [place] [address] [place] [address] Laboratory Report Ordering Provider Test Date Status LUIS ANTONIO LEIVA 10/22/2023 11:53:13 Final Observation Date Value Abnormality Reference (Units ) Status Iron 10/22/2023 11:53:13 49 33-151 (ug /dL) Final Iron-binding capacity 10/22/2023 11:53:13 302 250-425 (ug/dL) Final Transferrin Sat % 10/22/2023 11:53:13 16 15 -55 (%) Final Performing Location [facility] [address] [place] [address]
--- OUTSIDE RECORDS SUMMARY | 2024-02-02 08:55 | External Medical Summary | Summary of Care ---
Author Name Unknown Organization [facility] Address [address] [facility] [place] [address] Phone [phone] Care Team Providers Care Car Dispatcher Name Role Phone Scott Weldon MD Primary Care Provider + Encounter Details Date Type Department Care Team (Late st Contact Info) Description 10/10/2023 Orders Only PATIENT PORTAL DO NOT DELETE THIS DEPT USED BY [place] FRIEND [id number] Allergies Active Allergy Reactions Criticality Noted Date Comments Naproxen Sodium Bleeding High 11/29/2013 Pollen 12/03/2022 Seasonal Food (See Comments) Anaphylaxis High 04/20/2019 Hot peppers (oils) Kiwi Extract Anaphylaxis High 04/20/2019 documented as of this encounter (statuses as of 10/10/2023) Medications Medication Sig Dispensed Refills Start Date [...] Strip 5 02/17/2017 Active Insulin Infusion Pump (MINIMUpTap 630G INSULIN PUMP) KITIndications:Type 2 diabetes mellitus with hemoglobin A1c goal of less than 8.0% ([facility]) Use as directed. 0 07/30/2017 Active [...] suspected opioid overdose. Seek immediate medical attention. [email or web address] 1 Each 3 11/27/2022 Active [...] A1c goal of less than 8.0% ([facility]),DM type 2, not at goal ([facility]) INJECT UP TO 200 UNITS SUBCUTANEOSULY [...] the morning. 90 Tablet 3 09/01/2023 Active hydrOXYzine HCl 25 MG Oral Tablet Take 1 tab during the day every 4-6 hours as needed for anxiety and take 2 tabs at bedtime as needed for anxiety 120 Tablet 1 09/09/2023 Active Atorvastatin Calcium 40 MG Oral Tablet [...] Oxide 10 % External Cream Apply 1 [place] topically to affected area once. Apply to buttocks area as needed 0 Active Sucralfate 1 GM Oral Tablet (Carafate) Take 1 Tablet by mouth in the morning and 1 Tablet before bedtime. 120 Tablet 0 10/05/2023 Active documented as of this encounter (statuses as of 10/10/2023) Active Problems Problem Noted Date Diagnosed Date [...] Overview: 09/29 colon + polyps PATH benign. EGD Grade II esoph varices, multiple gastric [...] as of this encounter (statuses as of 10/10/2023) Resolved Problems Problem Noted Date Diagnosed Date [...] Overview: Per Obesity Taxonomy Coronary atherosclerosis of iroquois coronary artery 09/15/2008 10/03/2008 Malaise and fatigue [...] as of this encounter (statuses as of 10/10/2023) Immunizations Name Administration Dates Next Due COVID-19 mRNA, LNP-s, No Pre serve, 2-Dose Series (Taskdoer) 11/08/2020,10/11/2020 HEP A - Hepatitis A (Adult > 18 yrs) 04/11/2011, 09/20/2010 Hepatitis B, 20+ yrs 07/05/2015 Pneumococcal Conjugate Vacci ne, 20-valent ([id number]) 03/13/2023 Pneumococcal Polysaccharide PPV23 (Pneumovax) 02/19/2018,03/09/2007 Seasonal [...] Care Team (Latest Contact Info) Description 4 2:30 PM EDT Office Visit General Surgery, [facility] [address] [place] [address] Mariano Billingsley MD [address] [place] [address] 4 1:30 PM EDT Immunization/Inje ction Hematology/Onco logy Treatment, [place] 200 [facility] [place] [phone] Nurse, Med 200 [facility] [place] [address] 4 1:00 PM EDT Telemedicine Pharmacy, [facility] 132 [facility] [place] [address] [place] [address] 4 9:10 AM EDT Office Visit Pharmacy, [address] [address] 4 12:30 PM EDT Telemedicine Psychiatry, [facility] 200 [facility] [place] [address] Rj Mai MD [address] [place] [address] 4 9:20 AM EDT [facility] [place] [address] [place] [address] Lakisha Murcia, DO [address] [place] [address] 4 2:20 PM EDT Office Visit [facility] [address] [place] [address] Scott Weldon MD [address] [place] [address] 4 8:00 AM EDT Telemedicine Gastroenterolog , [facility] [address] [place] [address] Charlee Fields MD [address] [place] [address] 4 2:15 PM EDT Office Visit Hematology/Onco logy [facility] [place] [address] [place] [address] Sunil Bourgeois MD [address] [place] [address] 4 12:20 PM EDT Office Visit [facility] 132 [facility] [place] [address] Scott Weldon MD [address] [place] [address] 4 12:30 PM EDT Office Visit Ophthalmology, [facility] 132 [facility] [place] [address] Rolan Self, DO [facility] [place] [address] 4 11:15 AM EDT Hospital Encounter ENDO [facility], Endoscopy Room [facility] [address] [place] [address] Aj Pruett, DO [address] [place], [place] [address] 4 11:15 AM EDT - 4 11:45 AM EDT Surgery ENDO [facility], Endoscopy Room [facility] [address] [place] [address] Aj Pruett, DO [address] [place] [address] ESOPHAGOGASTRODUODENOSCOPY (EGD), FLEXIBLE, TRANSORAL, DIAGNOSTIC 4 10:40 AM EST Office Visit Nephrology, [facility] [address] [facility] [address] [place] [address] Jonathan Mathew MD 200 [facility] [place] [address] Scheduled Procedures Name Priority Associated Diagnoses Date/Ti [...] this encounter Medical Devices Implanted Type Area Battery Assembler Plastic Device Identifier Shelf Expiration Date Model / Serial / Lot Neurostimul Intellis Adaptiv - [id number] - [id number] Implanted:Qty: 1 on 08/22/2022 by Rafia Small MD at OR [facility] N/A: Spine Lumbar [employer] 06/21/2023 [id number] / [id number] / Description:battery Medtronic Lead Kit 60 Cm Implanted:Qty: 1 on 08/22/2022 by Rafia Small MD at OR [facility] N/A: Spine Lumbar 02/01/2026 [id number] / / [id number] Medtronic Lead Kit 60cm Implanted:Qty: 1 on 08/22/2022 by Rafia Small MD at OR [facility] N/A: Spine Lumbar 03/21/2026 [id number] / / [id number] Envelope Tyrx Med Antibacteril - [id number] Implanted:Qty: 1 on 08/22/2022 by Rafia Small MD at OR [facility] N/A: Spine Lumbar [employer] 03/10/2023 [id number] / / [id number] Hemostatic Clip Res 235cm - [id number] Implanted:Qty: 4 on 10/05/2023 by Aj Pruett DO at ENDOSCOPY [facility] : ENDOSCOPY 02/03/2026 [id number] / / Hemostatic Clip Res 235cm - [id number] Implanted:Qty: 1 on 10/05/2023 by Aj Pruett DO at ENDOSCOPY [facility] : ENDOSCOPY 02/02/2026 [id number] / / documented as of this encounter [...] the patient have Health Care Power of Float Remover? No Code Status History Code Status Date Activated Date Inactivated Comments Full Code 01/21/2011 12:12 PM 01/22/2011 8:48 PM This order reflects the patients wishes and were consensually agreed upon. Question Answer Comments Discussion of Advance Directives occurred with: Patient Does the patient have a Living Will? No Does the patient have Health Care Power of Float Remover? No Care Teams Car Dispatcher Relationship Specialty Start Date End Date Scott Weldon MD [address] [place] [address] [place] [address] PCP - General Family Medicine 08/03/18 documented as of this encounter
--- OUTSIDE RECORDS SUMMARY | 2024-02-02 08:55 | External Medical Summary | Summary of Care ---
Author Name Unknown Organization [facility] Address [address] [facility] [place] [address] Phone [phone] Care Team Providers Care Viscose Department Worker Name Role Phone Scott Weldon MD Primary Care Provider + Reason for Visit * Reason Onset Date Comments Pre Op Discussion 07/16/2023 Encounter Details Date Type Department Care Team (Late st Contact Info) Description 07/16/2023 Telephone OR [facility], Operating Room [facility] [address] [place] [phone] Aj Pruett DO [address] [place] [address] Pre Op Discussion Allergies Active Allergy Reactions Criticality Noted Date Comments Naproxen Sodium Bleeding High 11/29/2013 Pollen 12/03/2022 Seasonal Food (See Comments) Anaphylaxis High 04/20/2019 Hot peppers (oils) Kiwi Extract Anaphylaxis High 04/20/2019 documented as of this encounter (statuses as of 10/15/2023) Medications Medication Sig Dispensed Refills Start Date [...] 5 02/18/20 17 Active Insulin Infusion Pump (MINIMMoneyMenttor 630G INSULIN PUMP) KITIndications:Typ e 2 diabetes mellitus with hemoglobin A1c goal of less than 8.0% ([facility]) Use as directed. 0 07/30/19 18 Active CPAP every night at bedtime. 0 Active Glucagon Emergency 1 MG Injection Kit As directed 1 Kit 3 09/05/19 23 Active Magnesium Oxide 400 (240 Mg) MG Oral Tablet (Mag-Ox)Indication s:Hypomagnesemia TAKE 1 TABLET BY MOUTH EVERY DAY 90 Tablet 3 10/06/19 23 Active Dicyclomine HCl 20 MG Oral Tablet (Bentyl) Take 1 Tablet by mouth 2 times a day as needed for Pain or Cramping. 180 Tablet 3 11/15/19 23 Active Naloxone HCl 4 MG/0.1ML Nasal Liquid (Narcan Nasal)Indications: Controlled substance agreement signed,Chronic pain syndrome Administer 1 spray into 1 nostril for suspected opioid overdose. Seek immediate medical attention. [email or web address] 1 Each 3 11/28/19 23 Active Additional Information Patient not taking.Reported on 10/05/2023 Atenolol 100 MG Oral Tablet (Tenormin)Indicati ons:Tachycardia [...] days 1 Each 1 04/16/20 23 Active NovoLIN R ReliOn 100 UNIT/ML [...] BEDTIME 270 Capsule 1 06/05/20 23 Active Insulin Syringe-Needle U-100 (BD INSULIN SYRINGE) 30G X 1/2" 0.5 ML MISC 3 daily injection in case of pump malfunction 100 Box Dosing Unit 3 12/31/19 16 024 Discontinued(En d of Procedure) Insulin Pen Needle (BD PEN NEEDLE MINI U/F) 31G X 5 MMIndications:Type 2 diabetes mellitus with hemoglobin A1c goal of less than 8.0% (HCC) Use with Victoza once daily 100 Each 5 06/15/19 18 024 Discontinued(En d of Procedure) Atorvastatin Calcium 40 MG Oral Tablet (Lipitor)Indicatio ns:Dyslipidemia, goal LDL below 100 Take 1 Tablet by mouth in the morning. 90 Tablet 3 09/09/19 23 024 Discontinued Escitalopram Oxalate 20 MG Oral Tablet (Lexapro) Take 1 Tablet by mouth in the morning. 90 Tablet 1 11/05/19 23 024 Discontinued(Re fill) Ozempic (1 MG/DOSE) 4 MG/3ML Subcutaneous Solution Pen-injector (Semaglutide (1 MG/DOSE))Indicatio ns:Type 2 diabetes mellitus with hemoglobin A1c goal of less than 8.0% (HCC) Inject 1 mg under the skin once a week. Dose increase 3 mL 1 11/06/19 23 024 Discontinued(Me dication/Dose Changed) hydrOXYzine HCl 25 MG Oral Tablet Take 1 tab during the day every 4-6 hours as needed for anxiety and take 2 tabs at bedtime as needed for anxiety 120 Tablet 3 02/03/20 23 024 Discontinued(Re fill) Omeprazole 20 MG Oral Capsule Delayed Release (PriLOSEC)Indicati ons:Gastroesophage al reflux disease without esophagitis TAKE 1 CAPSULE BY MOUTH TWICE A DAY 180 Capsule 1 03/05/20 23 024 Discontinued(Me dication/Dose Changed) Losartan Potassium 25 MG Oral Tablet (Cozaar)Indication s:HTN, goal below 130/80 TAKE 1 TABLET BY MOUTH EVERYDAY AT BEDTIME 90 Tablet 1 04/17/20 23 024 Discontinued(Jayson cardoza preference/disc ontinuation) Spironolactone 50 MG Oral Tablet (Aldactone)Indicat ions:Liver cirrhosis secondary to nonalcoholic steatohepatitis (MENDEZ) (HCC),Obesity, Class III, BMI 40-49.9 (morbid obesity) (HCC),Type 2 diabetes mellitus with hemoglobin A1c goal of less than 8.0% (HCC),HTN, goal below 130/80,Dyslipidemi a, goal LDL below 100,Other ascites,Peripheral edema TAKE 1 TABLET BY MOUTH EVERY DAY IN THE MORNING 90 Tablet 1 04/20/20 23 024 Discontinued Furosemide 40 MG Oral Tablet (Lasix)Indications :Other ascites,Cirrhosis of liver with ascites, unspecified hepatic cirrhosis type (HCC),Edema, unspecified type TAKE 1 TABLET BY MOUTH EVERY DAY IN THE MORNING 90 Tablet 1 04/17/20 23 024 Discontinued Ondansetron 8 MG Oral Tablet Disintegrating (Zofran) Place 1 Tablet on tongue every 8 hours as needed for Nausea. dissolve on tongue. 90 Tablet 2 04/18/20 23 024 Discontinued traZODone HCl 100 MG Oral Tablet (Desyrel) Take 1-2 Tablets by mouth at bedtime. 180 Tablet 1 05/06/20 23 024 Discontinued(Re fill) Buprenorphine 5 MCG/HR Transdermal Patch Weekly (Butrans) Place 1 Patch topically on the skin once a week. 4 Patch 0 06/29/19 24 024 Discontinued(Re fill) Baclofen 10 MG Oral Tablet (Lioresal)Indicati ons:muscle spasms Take 1 Tablet by mouth 3 times a day as needed for Muscle spasms. 90 Tablet 5 06/30/19 24 024 Discontinued(Jayson cardoza preference/disc ontinuation) LORazepam 1 MG Oral Tablet (Ativan)Indication s:Anxiety Take 1 by mouth 60 minutes prior to procedure. Take second by mouth 30 minutes prior to procedure as needed for anxiety. 2 Tablet 0 07/01/19 24 024 Discontinued(Me dication/Dose Changed) Potassium Chloride ER 10 MEQ Oral Tablet Extended ReleaseIndications :HTN, goal below 130/80 TAKE 1 TABLET BY MOUTH TWICE A DAY WITH FOOD 180 Tablet 1 07/17/19 24 024 Discontinued(Jayson cardoza preference/disc ontinuation) Albuterol Sulfate HFA 108 (90 Base) MCG/ACT Inhalation Aerosol Solution INHALE 2 PUFFS BY MOUTH EVERY 6 HOURS NEEDED FOR SHORTNESS OF BREATH 18 g 2 07/17/19 24 024 Discontinued metFORMIN HCl 1000 MG Oral Tablet (Glucophage)Indica tions:DM type 2, not at goal (HCC) TAKE 1 TABLET BY MOUTH 2 TIMES A DAY WITH MORNING AND EVENING MEALS 180 Tablet 1 07/17/19 24 024 Discontinued documented as of this encounter (statuses as of 10/15/2023) Active Problems Problem Noted Date Diagnosed Date [...] as of this encounter (statuses as of 10/15/2023) Resolved Problems Problem Noted Date Diagnosed Date [...] Overview: Per Obesity Taxonomy Coronary atherosclerosis of kot[place] coronary artery 09/15/2008 10/03/2008 Malaise and fatigue [...] as of this encounter (statuses as of 10/15/2023) Immunizations Name Administration Dates Next Due COVID-19 mRNA, LNP-s, No Pre serve, 2-Dose Series (YR Free) 11/08/2020,10/11/2020 HEP A - Hepatitis A (Adult > 18 yrs) 04/11/2011, 09/20/2010 Hepatitis B, 20+ yrs 07/05/2015 Pneumococcal Conjugate Vacci ne, 20-valent ([id number]) 03/13/2023 Pneumococcal Polysaccharide PPV23 (Pneumovax) 02/19/2018,03/09/2007 Seasonal [...] Telephone Encounter - Leonarda Mccabe RN - 07/16/2023 3:10 PM EST Called patient for pre anesthesia evaluation for upcoming procedure ,no answer. Left message on machine /request return call /sent MyG documented in this encounter Plan of Treatment Upcoming Encounters Date Type Department Care Team (Latest Contact Info) Description 4 9:00 AM EDT Office Visit Pharmacy, [place] [address] [place] [address] [facility] [address] [place] [address] 4 10:30 AM EDT Laboratory Laboratory, [place] [address] [place] [address] [facility] [address] [place] [address] 4 1:30 PM EDT Office Visit General Surgery, [facility] [address] [place] [address] Mariano Billingsley MD [address] [place] [address] 4 1:30 PM EDT Immunization/Inje ction Hematology/Onco logy Treatment, [place] [address] [place] [phone] Nurse, Med 4 [address] [facility] [place] [address] 4 1:00 PM EDT [facility]medicine Pharmacy, [facility] [address] [place] [address] 4 9:10 AM EDT Office Visit Pharmacy, [place] [address] [place] [address] [place] [address] [place] [address] 4 12:30 PM EDT Telemedicine Psychiatry, [facility] [address] [facility] [place] [address] Rj Mai MD [address] [place] [address] 4 9:20 AM EDT Office Visit [facility] [address] [facility] [phone] Lakisha Murcia DO 132 [facility] [place] [address] 4 2:20 PM EDT Office Visit Family Practice [facility] 132 [facility] [place] [address] Scott Weldon MD [address] [facility] [place] [address] 4 8:00 AM EDT Telemedicine Gastroenterolog y, [address] [address] Charlee Fields MD [address] [place] [address] 4 2:15 PM EDT Office Visit Hematology/Onco logy [facility] [address] [place], [place] [address] Sunil Bourgeois MD [address] [place] [address] 4 12:20 PM EDT Office Visit Family Practice [facility] [address] [place] [address] Scott Weldon MD [address] [place] [address] 4 12:30 PM EDT Office Visit Ophthalmology, [facility] [address] [place] [address] Rolan Self, DO [address] [place] [address] 4 11:15 AM EDT Hospital Encounter ENDO [facility], Endoscopy Room [facility] [address] [place] [address] Aj Pruett, DO [address] [place] [address] 4 11:15 AM EDT - 4 11:45 AM EDT Surgery ENDO [facility], Endoscopy Room [facility] [address] [place] [phone] Aj Pruett, DO [address] [place] [address] ESOPHAGOGASTRODUODENOSCOPY (EGD), FLEXIBLE, TRANSORAL, DIAGNOSTIC 4 1:40 PM EST Office Visit Nephrology, [facility] [address] [place], [place] [address] Jonathan Mathew MD [address] [facility] [place] [address] Scheduled Procedures Name Priority Associated Diagnoses Date/Ti [...] this encounter Medical Devices Implanted Type Area Plant Accountant Device Identifier Shelf Expiration Date Model / Serial / Lot Neurostimul Intellis Adaptiv - [id number] - [id number] Implanted:Qty: 1 on 08/22/2022 by Rafia Small MD at OR [facility] N/A: Spine Lumbar [employer] 06/21/2023 [id number] / [id number] / Description:battery Medtronic Lead Kit 60 Cm Implanted:Qty: 1 on 08/22/2022 by Rafia Small MD at OR [facility] N/A: Spine Lumbar 02/01/2026 [id number] / / [id number] Medtronic Lead Kit 60cm Implanted:Qty: 1 on 08/22/2022 by Rafia Small MD at OR [facility] N/A: Spine Lumbar 03/21/2026 [id number] / / [id number] Envelope Tyrx Med Antibacteril - [id number] Implanted:Qty: 1 on 08/22/2022 by Rafia Small MD at OR [facility] N/A: Spine Lumbar [employer] 03/10/2023 [id number] / / [id number] Hemostatic Clip Res 235cm - [id number] Implanted:Qty: 4 on 10/05/2023 by Aj Pruett, DO at ENDOSCOPY [facility] : ENDOSCOPY 02/03/2026 [id number] / / Hemostatic Clip Res 235cm - [id number] Implanted:Qty: 1 on 10/05/2023 by Aj Pruett, DO at ENDOSCOPY [facility] : ENDOSCOPY 02/02/2026 [id number] / / documented as of this encounter [...] the patient have Health Care Power of Law Writer? No Code Status History Code Status Date Activated Date Inactivated Comments Full Code 01/21/2011 12:12 PM 01/22/2011 8:48 PM This order reflects the patients wishes and were consensually agreed upon. Question Answer Comments Discussion of Advance Directives occurred with: Patient Does the patient have a Living Will? No Does the patient have Health Care Power of Law Writer? No Care Teams Viscose Department Worker Relationship Specialty Start Date End Date Scott Weldon MD [address] [place] [address] PCP - General Family Medicine 08/03/18 documented as of this encounter
--- OUTSIDE RECORDS SUMMARY | 2024-02-02 08:55 | External Medical Summary ---
Author Name Unknown Address Unknown Organization K01:[facility] [place] - [facility] [place] [address] [place] [address] Laboratory Report Ordering Provider Test Date Status LISA MARIE 10/22/2023 11:53:13 Final Observation Date Value Abnormality Reference (Units ) Status BUN 10/22/2023 11:53:13 20 6-20 (mg/dL) Final Creatinine 10/22/2023 11:53:13 1.3 Above high normal 0.5-1.0 (mg/dL) Final Glomerular filtration rate/1.73 sq M.predicted [Volume Rate/Area] in Serum, Plasma or Blood by Creatinine-based formula (CKD-EPI) 10/22/2023 11:53:13 48 Below low normal >=60 (mL/min) Final eGFR is calculated based on the CKD-EPI 2020 equation Sodium 10/22/2023 11:53:13 140 135-146 (m mol/L) Final Potassium 10/22/2023 11:53:13 4.3 3.5-5.1 (m mol/L) Final Cl 10/22/2023 11:53:13 100 98-107 (mm ol/L) Final CO2 10/22/2023 11:53:13 29 22-32 (mmo l/L) Final Anion gap 10/22/2023 11:53:13 11 7-15 (mmol /L) Final Glucose 10/22/2023 11:53:13 125 Above high normal 70 -120 (mg/dL) Final Calcium 10/22/2023 11:53:13 8.9 8.4-10.2 ( mg/dL) Final Albumin 10/22/2023 11:53:13 4.0 3.8-5.0 (g /dL) Final Phosphate 10/22/2023 11:53:13 3.1 2.5-4.8 (m g/dL) Final Performing Location [facility] [place] - [address] [place] [address]
--- OUTSIDE RECORDS SUMMARY | 2024-02-02 08:55 | External Medical Summary | Summary of Care ---
Author Name Unknown Organization [facility] Address [address] [facility] [place] [address] Phone [phone] Care Team Providers Care Reinforced Concrete Inspector Name Role Phone Scott Montoya MD Primary Care Provider + Reason for Visit * Reason Onset Date Comments Medication Refill 10/19/2023 Encounter Details Date Type Department Care Team (Late st Contact Info) Description 10/19/[address] [facility] [address] [place] [id number] Scott Montoya MD [address] [place] [address] Hypomagnesemia; Controlled substance agreement signed; Chronic bilateral low back pain with sciatica, sciatica laterality unspecified; Chronic pain syndrome Allergies Active Allergy Reactions Criticality Noted Date Comments Naproxen Sodium Bleeding High 11/29/2013 Pollen 12/03/2022 Seasonal Food (See Comments) Anaphylaxis High 04/20/2019 Hot peppers (oils) Kiwi Extract Anaphylaxis High 04/20/2019 documented as of this encounter (statuses as of 10/21/2023) Medications Medication Sig Dispensed Refills Start Date [...] Strip 5 7 Active Insulin Infusion Pump (MINIMcharming charlie 630G INSULIN PUMP) KITIndications:Type 2 diabetes mellitus with hemoglobin A1c goal of less than 8.0% ([facility]) Use as directed. 0 8 Active CPAP [...] suspected opioid overdose. Seek immediate medical attention. [email or web address] [email or web address]/[email or web address]?v=v26c [email or web address] 1 Each 3 3 Active Additional Information Patient not taking.Reported on [...] 180 days 1 Each 1 3 Active NovoLIN R ReliOn 100 UNIT/ML [...] mg once. Ozempic weekly on Sundays 0 4 Active Ondansetron 8 MG Oral Tablet Disintegrating (Zofran) PLACE 1 TABLET ON TONGUE AND DISSOLVE EVERY 8 HOURS NEEDED FOR NAUSEA 30 Tablet 0 4 Active metroNIDAZOLE 500 MG Oral Tablet Take [...] at bedtime. 30 Tablet 1 4 Active Zinc Oxide 10 % External Cream Apply 1 [place] topically to affected area once. Apply to buttocks area as needed 0 Active Sucralfate 1 GM Oral Tablet (Carafate) Take 1 Tablet by mouth in the morning and 1 Tablet before bedtime. 120 Tablet 0 4 Active hydrOXYzine HCl 25 MG Oral Tablet Take 1 tab during the day every 4-6 hours as needed for anxiety and take 2 tabs at bedtime as needed for anxiety 450 Tablet 1 4 Active Furosemide 40 MG Oral Tablet (Lasix) Take 1 Tablet by mouth in the morning and 1 Tablet before bedtime. 0 4 Active Potassium Chloride Laura ER 20 MEQ Oral Tablet Extended Release Take 1 Tablet by mouth in the morning. 0 4 Active Magnesium Oxide -Mg Supplement 400 (240 Mg) MG Oral Tablet (Mag-Ox)Indications :Hypomagnesemia Take 1 Tablet by mouth in the morning. 90 Tablet 3 4 Active Metoclopramide HCl 5 MG Oral Tablet (Reglan) Take 1 Tablet by mouth in the morning and 1 Tablet at noon and 1 Tablet in the evening. Take before meals. If needed for nausea. 30 Tablet 0 4 Active Buprenorphine 5 MCG/HR Transdermal Patch Weekly (Butrans)Indication s:Controlled substance agreement signed,Chronic bilateral low back pain with sciatica, sciatica laterality unspecified,Chronic pain syndrome Place 1 Patch topically on the skin once a week. 4 Patch 0 4 Active Magnesium Oxide 400 (240 Mg) [...] needed for nausea. 30 Tablet 0 3 10/19/19 24 Discontinu ed(Refill) Buprenorphine 5 MCG/HR Transdermal Patch Weekly (Butrans)Indication s:Controlled substance agreement signed,Chronic bilateral low back pain with sciatica, sciatica laterality unspecified,Chronic pain syndrome Place 1 Patch topically on the skin once a week. 4 Patch 0 4 10/19/19 24 Discontinu ed(Refill) documented as of this encounter (statuses as of 10/21/2023) Active Problems Problem Noted Date Diagnosed Date [...] as of this encounter (statuses as of 10/21/2023) Resolved Problems Problem Noted Date Diagnosed Date [...] Overview: Per Obesity Taxonomy Coronary atherosclerosis of [place] coronary artery 09/15/2008 10/03/2008 Malaise [...] as of this encounter (statuses as of 10/21/2023) Immunizations Name Administration Dates Next Due COVID-19 mRNA, LNP-s, No Pre serve, 2-Dose Series ([employer]) 11/08/2020,10/11/2020 HEP A - Hepatitis A (Adult > 18 yrs) 04/11/2011, 09/20/2010 Hepatitis B, 20+ yrs 07/05/2015 Pneumococcal Conjugate Vacci ne, 20-valent ([id number]) 03/13/2023 Pneumococcal Polysaccharide PPV23 (Pneumovax) 02/19/2018,03/09/2007 Seasonal [...] Telephone Encounter - Scott Montoya MD - 10/21/2023 8:49 AM EDTSigned Prescriptions: Disp Refills Magnesium Oxide -Mg Supplement 400 (240 Mg*90 Tab*3 Sig: Take 1 Tablet by mouth in the morning. Authorizing Provider: SCOTT MONTOYA Metoclopramide HCl 5 MG Oral Tablet ([place]*30 Tab*0 Sig: Take 1 Tablet by mouth in the morning and 1 Tablet at noon and 1 Tablet in the evening. Take before meals. If needed for nausea. Authorizing Provider: SCOTT MONTOYA Buprenorphine 5 MCG/HR Transdermal Patch W*4 Patch0 Sig: Place 1 Patch topically on the skin once a week. Authorizing Provider: SCOTT MONTOYA * Telephone Encounter - Polly Clarke [facility] - 10/21/2023 8:19 AM EDT Pending Prescriptions: Disp Refills Magnesium Oxide -Mg Supplement 400 (240 Mg*90 Tab*3 Sig: Take 1 Tablet by mouth in the morning. Metoclopramide HCl 5 MG Oral Tablet (Darby*30 Tab*0 Sig: Take 1 Tablet by mouth in the morning and 1 Tablet at noon and 1 Tablet in the evening. Take before meals. If needed for nausea. Buprenorphine 5 MCG/HR Transdermal Patch W*4 Patch0 Sig: Place 1 Patch topically on the skin once a week. * Telephone Encounter - Polly Clarke [facility] - 10/21/2023 8:18 AM EDT I have reviewed the patients controlled substance dispensing history in the Prescription Drug Monitoring Program in compliance with the [place] regulations before prescribing a controlled substance. PDMP checked on 10/21/2023. Pending Prescriptions: Disp Refills Buprenorphine 5 MCG/HR Transdermal Patch *4 Patch0 Sig: Place 1 Patch topically on the skin once a week. Last Visit: 09/08/2023 (in office), 09/08/2022 (telemedicine) Next Visit: 11/25/2023 Date medication was last filled: 09/22 Date medication is due for refill: 10/19 Pharmacy: [id number] [facility] Is this request for a controlled [...] Results Review. Please approve if appropriate. Thank you, Polly Clarke, YimiD. Clinical Pharmacist [facility] ([facility]) (formerly Telepharmacy) 10/21/2023, 8:19 AM documented in this encounter Plan of Treatment Upcoming Encounters Date Type Department Care Team (Latest Contact Info) Description 1:30 PM EDT Office Visit General Surgery, [facility] [address] [place] [address] Mariano Billingsley MD [address] [place] [address] 4 2:00 PM EDT Laboratory Laboratory, [facility] [address] [place] [phone] RoseGabriela alarcon [facility] [address] [place] [address] 4 2:30 PM EDT Office Visit Pharmacy, [place] [address] [place] [address] [facility] [address] [place] [address] 4 1:30 PM EDT Immunization/Inje ction Hematology/Onco logy Treatment, [place] [address] [place] [phone] Nurse, Med [address] [place] [address] [place] [address] 4 1:00 PM EDT Telemedicine Pharmacy, [facility] [address] [place] [address] [address] 4 9:10 AM EDT Office Visit Pharmacy, [place] [address] [place] [address] [facility] [address] [place] [address] 4 12:30 PM EDT Telemedicine Psychiatry, [facility] [address] [facility] [place] [address] Rj Mai MD [address] [place] [address] 4 9:20 AM EDT Office Visit [facility] [address] [facility] [place] [address] Lakisha Murcia, DO [address] [facility] [place] [address] 4 2:20 PM EDT Office Visit [facility] [address] [facility] [place] [address] Scott Montoya MD [address] [facility] [place] [address] 4 8:00 AM EDT Telemedicine Gastroenterolog y, [address] [address] Charlee Fields MD [address] [place] [address] 4 2:15 PM EDT Office [facility] [address] [place] [phone] Sunil Bourgeois MD [address] [place] [address] 4 12:20 PM EDT Office Visit [facility] [address] [facility] [place] [address] Scott Montoya MD [address] [facility] [place] [address] 4 12:30 PM EDT Office Visit Ophthalmology, [facility] [address] [facility] [place] [address] Rolan Self, DO [address] [facility] [place] [address] 4 11:15 AM EDT Hospital Encounter ENDO [facility], Endoscopy Room [facility] [address] [place], [place] [phone] Aj Pruett, DO [address] [place], [place] [address] 4 11:15 AM EDT - 4 11:45 AM EDT Surgery ENDO [facility], Endoscopy Room [facility] [address] [place], [place] [address] Aj Pruett, DO [address] [place] [address] ESOPHAGOGASTRODUODENOSCOPY (EGD), FLEXIBLE, TRANSORAL, DIAGNOSTIC 4 1:40 PM EST Office Visit Nephrology, [facility] [address] [facility] [place] [address] Jonathan Mathew MD [address] [facility] [place] [address] Scheduled Procedures Name Priority Associated Diagnoses Date/Ti [...] this encounter Medical Devices Implanted Type Area Wind Technician Device Identifier Shelf Expiration Date Model / Serial / Lot Neurostimul Intellis Adaptiv - [id number] - [id number] Implanted:Qty: 1 on 08/22/2022 by Rafia Small MD at OR [facility] N/A: Spine Lumbar [employer] 06/21/2023 [id number] / [id number] / Description:battery Medtronic Lead Kit 60 Cm Implanted:Qty: 1 on 08/22/2022 by Rafia Small MD at OR [facility] N/A: Spine Lumbar 02/01/2026 [id number] / / [id number] Medtronic Lead Kit 60cm Implanted:Qty: 1 on 08/22/2022 by Rafia Small MD at OR [facility] N/A: Spine Lumbar 03/21/2026 [id number] / / [id number] Envelope Tyrx Med Antibacteril - [id number] Implanted:Qty: 1 on 08/22/2022 by Rafia Small MD at OR [facility] N/A: Spine Lumbar [employer] 03/10/2023 [id number] / / [id number] Hemostatic Clip Res 235cm - [id number] Implanted:Qty: 4 on 10/05/2023 by Aj Pruett DO at ENDOSCOPY [facility] : ENDOSCOPY 02/03/2026 [id number] / / Hemostatic Clip Res 235cm - [id number] Implanted:Qty: 1 on 10/05/2023 by Aj Pruett DO at ENDOSCOPY [facility] : ENDOSCOPY 02/02/2026 [id number] / / documented as of this encounter Visit Diagnoses Diagnosis Hypomagnesemia Disorders of magnesium metabolism Controlled substance agreement signed Encounter for long-term [...] the patient have Health Care Power of Script Developer? No Code Status History Code Status Date Activated Date Inactivated Comments Full Code 01/21/2011 12:12 PM 01/22/2011 8:48 PM This order reflects the patients wishes and were consensually agreed upon. Question Answer Comments Discussion of Advance Directives occurred with: Patient Does the patient have a Living Will? No Does the patient have Health Care Power of Script Developer? No Care Teams Reinforced Concrete Inspector Relationship Specialty Start Date End Date Scott Montoya MD [address] [place] [address] PCP - General Family Medicine 08/03/18 documented as of this encounter
--- OUTSIDE RECORDS SUMMARY | 2024-02-02 08:55 | External Medical Summary | Summary of Care ---
Author Name Unknown Organization [facility] Address [address] [facility] [place] [address] Phone [phone] Care Team Providers Care Inside Wirer Name Role Phone Scott Weldon MD Primary Care Provider + Reason for Visit * Reason Onset Date Comments Medication Question 10/12/2023 Encounter Details Date Type Department Care Team (Late st Contact Info) Description 10/12/2023 Telephone [facility] Practice [facility] [place] [address] Scott Weldon MD [address] [place] [address] Medication Question Allergies Active Allergy Reactions Criticality Noted Date Comments Naproxen Sodium Bleeding High 11/29/2013 Pollen 12/03/2022 Seasonal Food (See Comments) Anaphylaxis High 04/20/2019 Hot peppers (oils) Kiwi Extract Anaphylaxis High 04/20/2019 documented as of this encounter (statuses as of 10/12/2023) Medications Medication Sig Dispensed Refills Start Date [...] hemoglobin A1c goal of less than 8.0% ([facility]) Use as directed. 0 8 Active CPAP every night at bedtime. 0 Active Glucagon Emergency 1 MG Injection Kit As directed 1 Kit 3 3 Active Magnesium Oxide 400 (240 Mg) MG Oral Tablet (Mag-Ox)Indications :Hypomagnesemia TAKE 1 TABLET BY MOUTH EVERY DAY 90 Tablet 3 3 Active Dicyclomine HCl 20 MG Oral Tablet (Bentyl) Take 1 Tablet by mouth 2 times a day as needed for Pain or Cramping. 180 Tablet 3 3 Active Naloxone HCl 4 MG/0.1ML Nasal Liquid (Narcan Nasal)Indications:C ontrolled substance agreement signed,Chronic pain syndrome Administer 1 spray into 1 nostril for suspected opioid overdose. Seek immediate medical attention. [email or web address]?[email or web address] 1 Each 3 3 Active Additional Information [...] hemoglobin A1c goal of less than 8.0% ([facility]),DM type 2, not at goal ([facility]) INJECT UP TO 200 UNITS [...] varices without bleeding, unspecified esophageal varices type ([facility]),Colitis Take 1 Tablet by mouth in the [...] OF BREATH 18 g 2 4 Active Buprenorphine 5 MCG/HR Transdermal Patch Weekly (Butrans)Indication s:Controlled substance agreement signed,Chronic bilateral low back pain with sciatica, sciatica laterality unspecified,Chronic pain syndrome Place 1 Patch topically on the skin once a week. 4 Patch 0 4 Active Additional Information Patient taking differently:1 Patch Transdermal QWEEK,Indications: on sundays, Reported on 10/01/2023 Eszopiclone 2 MG Oral Tablet (Lunesta) Take 1 Tablet by mouth at bedtime. 30 Tablet 1 4 Active Zinc Oxide 10 % External Cream Apply 1 [place] topically to affected area once. Apply to [...] for anxiety 450 Tablet 1 4 Active hydrOXYzine HCl 25 MG Oral Tablet Take 1 tab during the day every 4-6 hours as needed for anxiety and take 2 tabs at bedtime as needed for anxiety 120 Tablet 1 4 10/12/19 24 Discontinu ed(Refill) documented as of this encounter (statuses as of 10/12/2023) Active Problems Problem Noted Date Diagnosed Date [...] as of this encounter (statuses as of 10/12/2023) Resolved Problems Problem Noted Date Diagnosed Date [...] Overview: Per Obesity Taxonomy Coronary atherosclerosis of mi'kmaq coronary artery 09/15/2008 10/03/2008 Malaise and fatigue [...] as of this encounter (statuses as of 10/12/2023) Immunizations Name Administration Dates Next Due COVID-19 mRNA, LNP-s, No Pre serve, 2-Dose Series (AFFiRiS) 11/08/2020,10/11/2020 HEP A - Hepatitis A (Adult > 18 yrs) 04/11/2011, 09/20/2010 Hepatitis B, 20+ yrs 07/05/2015 Pneumococcal Conjugate Vacci ne, 20-valent ([id number]) 03/13/2023 Pneumococcal Polysaccharide PPV23 (Pneumovax) 02/19/2018,03/09/2007 Seasonal [...] encounter Miscellaneous Notes * Telephone Encounter - Kyra Park LPN - 10/12/2023 4:47 PM EDT Pended for 150 tablets if agreeable. Patient got 120 last fill. Please advise. 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 DONNA on CPAP G47.33 Dyslipidemia, goal LDL below 100 E78.5 Gastroesophageal reflux disease without esophagitis K21.9 HTN, goal below 130/80 I10 Vitamin D deficiency E55.9 Type 2 diabetes mellitus with hemoglobin A1c goal of less than 8.0% ([facility]) E11.9 Psychogenic nonepileptic seizure F44.5 Lumbago with sciatica M54.40 Controlled substance agreement signed Z79.899 Chronic pain syndrome G89.4 Cirrhosis of liver without ascites (HCC) K74.60 Well adult exam Z00.[address] Z96.41 Gastroparesis K31.84 Encounter for care related to vascular access port Z45.2 Thrombocytopenia (HCC) D69.6 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, 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 Portal hypertension (HCC) K76.6 Liver masses R16.0 Left hemiplegia (HCC) G81.94 Generalized anxiety disorder F41.1 Recurrent major depressive disorder, in partial remission (HCC) F33.41 Diabetic polyneuropathy associated with type 2 diabetes mellitus (HCC) E11.42 Severe obesity (BMI 35.0-39.9) with comorbidity (HCC) E66.01 Encounter for venous access device care Z45.2 Diabetes mellitus with background retinopathy (HCC) E11.3299 Iron deficiency anemia D50.9 Major depressive disorder, recurrent episode, moderate (HCC) F33.1 PTSD (post-traumatic stress disorder) F43.10 History of 2019 novel coronavirus disease (COVID-19) Z86.16 Diabetic retinopathy of both eyes without macular edema associated with type 2 diabetes mellitus (HCC) E11.319 Hemiplegia and 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 (HCC) I69.359 Esophageal varices without bleeding (HCC) I85.00 Type II diabetes mellitus with neurological manifestations (HCC) E11.49 Hyperlipidemia E78.5 Stroke (HCC) I63.9 Labs: Lab Results Component Value Date/Time CREATININE - [facility] 1.4 (H) 10/02/2023 01:15 PM CREATININE - [facility] 1.1 (H) 06/14/2020 09:00 AM CREATININE ANN MARIE 34 08/24/2019 11:14 AM CREATININE ANN MARIE - [facility] 22 03/11/2022 01:43 PM CREATININE, RANDOM URINE - [facility] 41 10/02/2023 01:15 PM CREATININE, RANDOM URINE - [facility] 133 08/18/2018 10:22 AM CREATININE-OUTSIDE LAB 0.98 10/02/2018 12:00 AM Lab Results Component Value Date/Time POTASSIUM 4.5 07/18/1996 10:50 AM POTASSIUM - [facility] 4.4 10/02/2023 01:15 PM POTASSIUM - [facility] 4.2 06/14/2020 09:00 AM POTASSIUM-OUTSIDE LAB 3.8 10/02/2018 12:00 AM Lab Results Component Value Date/Time TSH - [facility] 0.73 04/06/2020 01:20 PM Lab Results Component Value Date/Time LDL CHOLESTEROL (CALCULATED) - [facility] 54 07/23/2023 12:00 PM LDL CHOLESTEROL (CALCULATED) - [facility] 80 03/11/2022 01:29 PM LDL CHOLESTEROL (CALCULATED) - [facility] 62 12/12/2019 09:47 AM LDL CHOLESTEROL (CALCULATED) - [facility] 59 08/18/2018 10:07 AM LDL CHOLESTEROL (DIRECT MEASURE) - [facility] NOT APPLICABLE 12/12/2019 09:47 AM LDL CHOLESTEROL (DIRECT MEASURE) - [facility] NOT APPLICABLE 08/18/2018 10:07 AM LDL CHOLESTEROL (DIRECT MEASURE) - [facility] 72 11/28/2015 04:11 PM LDL CHOLESTEROL (DIRECT MEASURE) - [facility] 91 01/05/2014 08:47 AM Lab Results Component Value Date/Time ALT - [facility] 14 08/20/2023 11:27 AM ALT - [facility] 17 06/14/2020 09:00 AM ALT-OUTSIDE LAB 35 01/28/2017 12:00 AM Hemoglobin AIC Results: Lab Results Component Value Date/Time HEMOGLOBIN A1C - [facility] 5.8 (H) 07/23/2023 12:00 PM HEMOGLOBIN A1C - [facility] 5.7 (H) 02/18/2023 01:26 PM HEMOGLOBIN A1C - [facility] 8.6 (H) 06/11/2022 09:48 AM HEMOGLOBIN A1C - [facility] 7.9 (H) 06/14/2020 09:00 AM HEMOGLOBIN A1C - [facility] 6.5 (H) 12/12/2019 09:47 AM HEMOGLOBIN A1C - [facility] 6.8 (H) 02/16/2019 09:09 AM * Telephone Encounter - Sara Antony CPhT - 10/12/2023 1:04 PM EDT Pharmacy faxing to request a 90 day supply for hyrdoxyzine 25 mg. If agreeable please send to [id number] [address] [facility]. Thank you, Tisha Antony Director Of Content And Programming III [facility] ([facility]) 10/12/2023,1:04 PM documented in this encounter Plan of Treatment Upcoming Encounters Date Type Department Care Team (Latest Contact Info) Description 4 9:00 AM EDT Office Visit Pharmacy, [place] [address] [place] [address] [facility] [address] [place] [address] 4 3:15 PM EDT Office Visit General Surgery, [facility] [address] [facility] [place] [address] Mariano Billingsley MD [facility] [address] 4 11:00 AM EDT Laboratory Laboratory, [place] [address] [place] [facility] [place] [phone] [facility] Laboratory [place] [address] 4 1:30 PM EDT Immunization/Inje ction Hematology/Onco logy Treatment, [place] [address] [place] [phone] Nurse, Med [address] [place] [address] 4 1:00 PM EDT Telemedicine Pharmacy, Health system 132 [facility] [place] [address] [facility] 132 [facility] [place] [address] 4 9:10 AM EDT Office Visit Pharmacy, [place] [address] [place] [address] [facility] [address] [place] [address] 4 12:30 PM EDT Telemedicine Psychiatry, [place] Melendez [address] [place] [address] Rj Mai MD [address] [place] [address] 4 9:20 AM EDT Office Visit Sleep Disorders Ctr [facility] [address] [facility] [place] [phone] Lakisha Murcia DO [address] [place] [address] 4 2:20 PM EDT Office Visit Family Practice Health system [address] [place] [address] Scott Weldon MD [address] [facility] [place] [address] 4 8:00 AM EDT Telemedicine Gastroenterolog , [address] [address] Charlee Fields MD [address] [place] [facility] [address] 4 2:15 PM EDT Office Visit Hematology/Onco logy [place] [address] [place] [phone] Sunil Bourgeois MD [address] [place] [address] 4 12:20 PM EDT Office Visit Family Practice Health system [address] [place] [address] Scott Weldon MD [address] [place] [address] 4 12:30 PM EDT Office Visit Ophthalmology, Health system [address] [place] [address] Rolan Self, DO [address] [place] [address] 4 11:15 AM EDT Hospital Encounter ENDO [facility], Endoscopy Room [facility] [address] [place] [phone] Aj Pruett, DO [address] [place] [address] 4 11:15 AM EDT - 4 11:45 AM EDT Surgery ENDO [facility], Endoscopy Room [facility] [address] [place] [phone] Aj Pruett, DO [address] [place] [address] ESOPHAGOGASTRODUODENOSCOPY (EGD), FLEXIBLE, TRANSORAL, DIAGNOSTIC 4 10:40 AM EST Office Visit Nephrology, [facility] [address] [place] [address] Jonathan Mathew MD [address] [place], [place] [address] Scheduled Procedures Name Priority Associated Diagnoses Date/Ti [...] 010 09/2022, 06/14/2020, Additional history exists GFR 10/01/2024 [...] this encounter Medical Devices Implanted Type Area Civil Preparedness Officer Device Identifier Shelf Expiration Date Model / Serial / Lot Neurostimul Intellis Adaptiv - [id number] - [id number] Implanted:Qty: 1 on 08/22/2022 by Rafia Small MD at OR [facility] N/A: Spine Lumbar [employer] 06/21/2023 [id number] / [id number] / Description:battery Medtronic Lead Kit 60 Cm Implanted:Qty: 1 on 08/22/2022 by Rafia Small MD at OR [facility] N/A: Spine Lumbar 02/01/2026 [id number] / / [id number] Medtronic Lead Kit 60cm Implanted:Qty: 1 on 08/22/2022 by Rafia Small MD at OR [facility] N/A: Spine Lumbar 03/21/2026 [id number] / / [id number] Envelope Tyrx Med Antibacteril - [id number] Implanted:Qty: 1 on 08/22/2022 by Rafia Small MD at OR [facility] N/A: Spine Lumbar [employer] 03/10/2023 [id number] / / [id number] Hemostatic Clip Res 235cm - [id number] Implanted:Qty: 4 on 10/05/2023 by Aj Pruett DO at ENDOSCOPY [facility] [employer] [facility] ENDOSCOPY 02/03/2026 [id number] / / Hemostatic Clip Res 235cm - [id number] Implanted:Qty: 1 on 10/05/2023 by Aj Pruett DO at ENDOSCOPY [facility] [employer] : ENDOSCOPY 02/02/2026 [id number] / / documented as of this encounter [...] the patient have Health Care Power of Sterile Processing Technologist? No Code Status History Code Status Date Activated Date Inactivated Comments Full Code 01/21/2011 12:12 PM 01/22/2011 8:48 PM This order reflects the patients wishes and were consensually agreed upon. Question Answer Comments Discussion of Advance Directives occurred with: Patient Does the patient have a Living Will? No Does the patient have Health Care Power of Sterile Processing Technologist? No Care Teams Inside Wirer Relationship Specialty Start Date End Date Scott Weldon MD [address] [place] [address] PCP - General Family Medicine 08/03/18 documented as of this encounter
--- OUTSIDE RECORDS SUMMARY | 2024-02-02 08:56 | External Medical Summary | Summary of Care ---
Author Name Unknown Organization [facility] Address [address] [facility] [address] Phone [phone] Care Team Providers Care Warehouse Shipping Receiving Clerk Name Role Phone Scott Weldon MD Primary Care Provider + Reason for Visit * Reason Comments Blood Pressure Check Encounter Details Date Type Department Care Team (Late st Contact Info) Description 10/08/2023 11:00 AM EDT Nurse Only Nephrology, [facility] [address] [place] [address] Sp, Nurse Nephrology 200 [place] [address] Blood Pressure Check Allergies Active Allergy Reactions Criticality Noted Date Comments Naproxen Sodium Bleeding High 11/29/2013 Pollen 12/03/2022 Seasonal Food (See Comments) Anaphylaxis High 04/20/2019 Hot peppers (oils) Kiwi Extract Anaphylaxis High 04/20/2019 documented as of this encounter (statuses as of 10/08/2023) Medications Medication Sig Dispensed Refills Start Date [...] Strip 5 02/17/2017 Active Insulin Infusion Pump (MINIMYbrant Digital 630G INSULIN PUMP) KITIndications:Type 2 diabetes mellitus with hemoglobin A1c goal of less than 8.0% ([facility]) Use as directed. 0 [...] A1c goal of less than 8.0% ([facility]),DM type 2, not at goal ([facility]) INJECT UP TO 200 [...] Oxide 10 % External Cream Apply 1 [place] topically to affected area once. Apply to buttocks area as needed 0 Active Sucralfate 1 GM Oral Tablet (Carafate) Take 1 Tablet by mouth in the morning and 1 Tablet before bedtime. 120 Tablet 0 10/05/2023 Active documented as of this encounter (statuses as of 10/08/2023) Active Problems Problem Noted Date Diagnosed Date [...] as of this encounter (statuses as of 10/08/2023) Resolved Problems Problem Noted Date Diagnosed Date [...] Overview: Per Obesity Taxonomy Coronary atherosclerosis of mcgrath coronary artery 09/15/2008 10/03/2008 Malaise and fatigue [...] as of this encounter (statuses as of 10/08/2023) Immunizations Name Administration Dates Next Due COVID-19 mRNA, LNP-s, No Pre serve, 2-Dose Series ([employer]) 11/08/2020,10/11/2020 HEP A - Hepatitis A (Adult > 18 yrs) 04/11/2011, 09/20/2010 Hepatitis B, 20+ yrs 07/05/2015 Pneumococcal Conjugate Vacci ne, 20-valent ([id number]) 03/13/2023 Pneumococcal Polysaccharide PPV23 (Pneumovax) 02/19/2018,03/09/2007 Seasonal [...] Sign Reading Time Taken Comments Blood Pressure 101/68 10/08/2023 11:18 AM EDT Pulse 79 10/08/2023 11:18 AM EDT Temperature - - Respiratory Rate 18 10/08/2023 11:18 AM EDT Oxygen Saturation - - Inhaled Oxygen Concentration - - Weight 105.7 kg (233 lb) 10/08/2023 11:18 AM EDT Height - - Body Mass Index 39.99 10/05/2023 7:43 AM EDT documented in this [...] as of this encounter Nursing Notes * Carmen Ocasio RN - 10/08/2023 11:14 AM EDT Blood pressure and weight check today. Pt had multiple questions regarding her medications and concerned what will happen since she stopped her medications. Pt is requesting a bp cuff form home. Willorder through [employer]. documented in this encounter Plan of Treatment Upcoming Encounters Date Type Department Care Team (Late st Contact Info) Description 10/12/2023 2:30 PM EDT Office Visit General Surgery, [facility] [address] [place] [address] Mariano Billingsley MD 132 [place] [address] 11/04/2023 1:30 PM EDT Immunization/Injection Hematology/Oncology Treatment, [place] [address] [place] [phone] Nurse, Med [facility] [address] 11/05/2023 1:00 PM EDT Telemedicine Pharmacy, [facility] 132 [place] [address] [facility] [address] [facility] [address] 11/13/2023 9:10 AM EDT Office Visit Pharmacy, [place] [address] [place] [address] [place] [address] [place] [address] 11/23/2023 12:30 PM EDT Telemedicine Psychiatry, [address] [place] [address] Rj Mai MD [address] [place], [place] [phone] 11/24/2023 9:20 AM EDT Office Visit Sleep Disorders Ctr [facility] 132 [place] [phone] Lakisha Murcia DO [address] [facility] [place] [address] 11/25/2023 2:20 PM EDT Office Visit Family Practice [facility] 132 [facility] [place] [address] Scott Weldon MD [address] [facility] [place] [address] 02/09/2024 8:00 AM EDT Telemedicine Gastroenterology, [address] [address] Charlee Fields MD [address] [place] [address] 02/24/2024 2:15 PM EDT Office Visit Hematology/Oncology [facility] [address] [place] [address] Sunil Bourgeois MD [address] [facility] [place], [place] [address] 03/16/2024 12:20 PM EDT Office Visit Family Practice [facility] 132 [place] [address] Scott Weldon MD 132 [facility] [place] [address] 03/24/2024 12:30 PM EDT Office Visit Ophthalmology, [facility] 132 [place] [address] Rolan Self, [address] [place] [address] 06/03/2024 10:40 AM EST Office Visit Nephrology, [facility] 200 [facility] [place], [place] [address] Jonathan Mathew MD [address] [facility] [place], [place] [address] Health Maintenance Due Date Last Done Comments [...] this encounter Medical Devices Implanted Type Area Air Defence Officer Device Identifier Shelf Expiration Date Model / Serial / Lot Neurostimul Intellis Adaptiv - [id number] - [id number] Implanted:Qty: 1 on 08/22/2022 by Rafia Small MD at OR [facility] N/A: Spine Lumbar [employer] 06/21/2023 [id number] / [id number] / Description:battery Medtronic Lead Kit 60 Cm Implanted:Qty: 1 on 08/22/2022 by Rafia Small MD at OR [facility] N/A: Spine Lumbar 02/01/2026 [id number] / / [id number] Medtronic Lead Kit 60cm Implanted:Qty: 1 on 08/22/2022 by Rafia Small MD at OR [facility] N/A: Spine Lumbar 03/21/2026 [id number] / / [id number] Envelope Tyrx Med Antibacteril - [id number] Implanted:Qty: 1 on 08/22/2022 by Rafia Small MD at OR [facility] N/A: Spine Lumbar [employer] 03/10/2023 [id number] / / [id number] Hemostatic Clip Res 235cm - [id number] Implanted:Qty: 4 on 10/05/2023 by Aj Pruett DO at ENDOSCOPY [facility] [employer] : ENDOSCOPY 02/03/2026 [id number] / / Hemostatic Clip Res 235cm - [id number] Implanted:Qty: 1 on 10/05/2023 by Aj Pruett DO at ENDOSCOPY [facility] [employer] : ENDOSCOPY 02/02/2026 [id number] / / documented as of this encounter Visit Diagnoses Diagnosis HTN, goal below 130/80- Primary Unspecified essential hypertension documented in this encounter Advance Directives Latest [...] the patient have Health Care Power of Used Building Materials Yard Worker? No Code Status History Code Status Date Activated Date Inactivated Comments Full Code 01/21/2011 12:12 PM 01/22/2011 8:48 PM This order reflects the patients wishes and were consensually agreed upon. Question Answer Comments Discussion of Advance Directives occurred with: Patient Does the patient have a Living Will? No Does the patient have Health Care Power of Used Building Materials Yard Worker? No Care Teams Warehouse Shipping Receiving Clerk Relationship Specialty Start Date End Date Scott Weldon MD [address] [place] [address] PCP - General Family Medicine 08/03/18 documented as of this encounter
--- OUTSIDE RECORDS SUMMARY | 2024-02-02 08:56 | External Medical Summary | Summary of Care ---
Author Name Unknown Organization [facility] Address [address] [facility] [place] [address] Phone [phone] Care Team Providers Care Furniture Builder Name Role Phone Scott Weldon MD Primary Care Provider + Reason for Visit * Reason Onset Date Comments Test Results 10/08/2023 Encounter Details Date Type Department Care Team (Late st Contact Info) Description 10/08/2023 Telephone NephrologyRoney [address] [place] [address] Jonathan Mathew MD 200 [facility] [place] [address] Test Results Allergies Active Allergy Reactions Criticality [...] Strip 5 02/17/2017 Active Insulin Infusion Pump (MINIMShanxi Zinc [employer] 630G INSULIN PUMP) KITIndications:Type 2 diabetes [...] of less than 8.0% ([facility]),DM type 2, not at goal ([facility]) INJECT UP TO 200 UNITS SUBCUTANEOSULY [...] Oxide 10 % External Cream Apply 1 [place] topically to affected area once. Apply to [...] Overview: Per Obesity Taxonomy Coronary atherosclerosis of [place] coronary artery 09/15/2008 10/03/2008 Malaise and fatigue [...] mRNA, LNP-s, No Pre serve, 2-Dose Series (Helloworld) 11/08/2020,10/11/2020 HEP A - Hepatitis A (Adult > 18 yrs) 04/11/2011, 09/20/2010 Hepatitis B, 20+ yrs 07/05/2015 Pneumococcal Conjugate Vacci ne, 20-valent ([id number]) 03/13/2023 Pneumococcal Polysaccharide PPV23 (Pneumovax) 02/19/2018,03/09/2007 Seasonal [...] encounter Miscellaneous Notes * Addendum Note - Carmen Mondragon RN - 10/08/2023 4:00 PM EDTAddended by: CARMEN MONDRAGON on: 10/08/2023 04:00 PM Modules accepted: Orders * Telephone Encounter - Carmen Mondragon RN - 10/08/2023 3:57 PM EDT TE with pt regarding visit this AM> She confirmed that she has actually stopped listed medications including Jardiance. She is aware that bp cuff has been ordered and to repeat labs in 10 days. Orders are placed. * Telephone Encounter - Jonathan Mathew MD - 10/08/2023 3:50 PM EDT Stop taking Lasix,Aldactone,potassium and Losartan. Blood pressure is running kind of low. Repeat renal panel in about 10 days. Jonathan Mathew MD documented in this encounter Plan of Treatment Upcoming Encounters Date Type Department Care Team (Late st Contact Info) Description 10/12/2023 2:30 PM EDT Office Visit General Surgery, [facility] [address] [place] [address] Mariano Billingsley MD [address] [place] [address] 11/04/2023 1:30 PM EDT Immunization/Injection Hematology/Oncology Treatment, [place] [address] [place] [address] Nurse, Med 200 [facility] [place] [address] 11/05/2023 1:00 PM EDT [facility] 132 [facility] [place] [address] [facility] 132 [facility] [place] [address] 11/13/2023 9:10 AM EDT Office Visit Pharmacy, [address] [address] [address] [address] [place] [address] 11/23/2023 12:30 PM EDT Telemedicine Psychiatry, [facility] 200 [facility] [place] [address] Rj Mai MD [address] [place] [address] 11/24/2023 9:20 AM EDT Office Visit Sleep Disorders Ctr [facility] 132 [facility] [place] [phone] Lakisha Murcia DO 132 [facility] [place] [address] 11/25/2023 2:20 PM EDT Office Visit Family Practice [facility] 132 [facility] [place] [address] Scott Weldon MD [address] [place] [address] 02/09/2024 8:00 AM EDT Telemedicine Gastroenterology, [address] [address] Charlee Fields MD 100 [place] [facility] [place] [address] 02/24/2024 2:15 PM EDT Office Visit Hematology/Oncology [facility] [place] 200 [facility] [place] [phone] Sunil Bourgeois MD 200 [facility] [place] [address] 03/16/2024 12:20 PM EDT Office Visit Family Practice [facility] 132 [facility] [place] [address] Scott Weldon MD 132 [facility] [place] [address] 03/24/2024 12:30 PM EDT Office Visit Ophthalmology, [facility] 132 [facility] [place] [address] Rolan Self DO 21 [facility] [place] [address] 06/03/2024 10:40 AM EST Office Visit Nephrology, [facility] 200 [facility] [place] [address] Jonathan Mathew MD 200 [facility] [place] [address] Scheduled Orders Name Type Priority Associated Diagnoses Orde r Schedule RENAL FUNCTION PANEL Lab Routine Stage 3b chronic kidney disease (HCC) Expected: 10/15/2023 (Approximate), Expires: 10/07/2024 Health Maintenance Due Date Last Done Comments [...] this encounter Medical Devices Implanted Type Area Auto Apprentice Mechanic Device Identifier Shelf Expiration Date Model / Serial / Lot Neurostimul Intellis Adaptiv - [id number] - [id number] Implanted:Qty: 1 on 08/22/2022 by Rafia Small MD at OR [facility] N/A: Spine Lumbar [employer] 06/21/2023 [id number] / [id number] / Description:battery Medtronic Lead Kit 60 Cm Implanted:Qty: 1 on 08/22/2022 by Rafia Small MD at OR [facility] N/A: Spine Lumbar 02/01/2026 [id number] / / [id number] Medtronic Lead Kit 60cm Implanted:Qty: 1 on 08/22/2022 by Rafia Small MD at OR [facility] N/A: Spine Lumbar 03/21/2026 [id number] / / [id number] Envelope Tyrx Med Antibacteril - [id number] Implanted:Qty: 1 on 08/22/2022 by Rafia Small MD at OR [facility] N/A: Spine Lumbar [employer] 03/10/2023 [id number] / / [id number] Hemostatic Clip Res 235cm - [id number] Implanted:Qty: 4 on 10/05/2023 by Aj Pruett DO at [facility] ENDOSCOPY 02/03/2026 [id number] / / Hemostatic Clip Res 235cm - [id number] Implanted:Qty: 1 on 10/05/2023 by Aj Pruett DO at ENDOS[facility] : ENDOSCOPY 02/02/2026 [id number] / / documented as of this encounter Visit Diagnoses Diagnosis Stage 3b chronic kidney disease (HCC)- Primary documented in this encounter Advance Directives [...] the patient have Health Care Power of Hydrochloric Acid Operator? No Code Status History Code Status Date Activated Date Inactivated Comments Full Code 01/21/2011 12:12 PM 01/22/2011 8:48 PM This order reflects the patients wishes and were consensually agreed upon. Question Answer Comments Discussion of Advance Directives occurred with: Patient Does the patient have a Living Will? No Does the patient have Health Care Power of Hydrochloric Acid Operator? No Care Teams Furniture Builder Relationship Specialty Start Date End Date Scott Weldon MD [address] [place] [address] PCP - General Family Medicine 08/03/18 documented as of this encounter
--- OUTSIDE RECORDS SUMMARY | 2024-02-02 08:56 | External Medical Summary | Summary of Care ---
Author Name Unknown Organization [facility] Address 100 [facility] [place] [address] Phone [phone] Care Team Providers Care Curriculum And Assessment Director Name Role Phone Scott Weldon MD Primary Care Provider + Reason for Visit * Reason Onset Date Comments Test Results 10/08/2023 Encounter Details Date Type Department Care Team (Late st Contact Info) Description 10/08/2023 Telephone NephrologyRoney [address] [place] [address] Jonathan Mathew MD 200 [place] [address] Test Results Allergies Active Allergy Reactions Criticality [...] Strip 5 02/17/2017 Active Insulin Infusion Pump (MINIMLiftago 630G INSULIN PUMP) KITIndications:Type 2 diabetes mellitus [...] Oxide 10 % External Cream Apply 1 [place] topically to affected area once. Apply to [...] Overview: Per Obesity Taxonomy Coronary atherosclerosis of [place] coronary artery 09/15/2008 10/03/2008 Malaise and fatigue [...] mRNA, LNP-s, No Pre serve, 2-Dose Series (Antria) 11/08/2020,10/11/2020 HEP A - Hepatitis A (Adult > 18 yrs) 04/11/2011, 09/20/2010 Hepatitis B, 20+ yrs 07/05/2015 Pneumococcal Conjugate Vacci ne, 20-valent ([id number]) 03/13/2023 Pneumococcal Polysaccharide PPV23 (Pneumovax) 02/19/2018,03/09/2007 Seasonal [...] 2:30 PM EDT Office Visit General Surgery, [facility] [address] [place] [address] Mariano Billingsley MD [address] [place] [address] 11/04/2023 1:30 PM EDT Immunization/Injection Hematology/Oncology Treatment, [place] [address] [place] [address] Nurse, Med 200 [place] [address] 11/05/2023 1:00 PM EDT [facility], [facility] 132 [facility] [place] [address] [facility] 132 [facility] [place] [address] 11/13/2023 9:10 AM EDT Office Visit Pharmacy, [address] [address] [address] [place] [address] [place] [address] 11/23/2023 12:30 PM EDT Telemedicine Psychiatry, [facility] 200 [place] [address] Rj Mai MD [address] [place] [address] 11/24/2023 9:20 AM EDT Office Visit Sleep Disorders Ctr [facility] 132 [facility] [place] [phone] Lakisha Murcia DO 132 [facility] [place] [address] 11/25/2023 2:20 PM EDT Office Visit Family Practice [facility] 132 [facility] [place] [address] Scott Weldon MD [address] [place] [address] 02/09/2024 8:00 AM EDT Telemedicine Gastroenterology, [address] [address] Charlee Fields MD 100 [address] [facility] [place] [address] 02/24/2024 2:15 PM EDT Office Visit Hematology/Oncology [facility] [place] 200 [facility] [place] [phone] Sunil Bourgeois MD 200 [facility] [place] [address] 03/16/2024 12:20 PM EDT Office Visit Family Practice [facility] 132 [facility] [place] [address] Scott Weldon MD 132 [facility] [place] [address] 03/24/2024 12:30 PM EDT Office Visit Ophthalmology, [facility] 132 [facility] [place] [address] Rolan Self DO 21 [facility] [place] [address] 06/03/2024 10:40 AM EST Office Visit Nephrology, [facility] 200 [facility] [place] [address] Jonathan Mathew MD 200 [place] [address] Scheduled Orders Name Type Priority Associated Diagnoses [...] this encounter Medical Devices Implanted Type Area Soldering Machine Feeder Device Identifier Shelf Expiration Date Model / Serial / Lot Neurostimul Intellis Adaptiv - [id number] - [id number] Implanted:Qty: 1 on 08/22/2022 by Rafia Small MD at OR [facility] N/A: Spine Lumbar [employer] 06/21/2023 [id number] / [id number] / Description:battery Medtronic Lead Kit 60 Cm Implanted:Qty: 1 on 08/22/2022 by Rafia Small MD at OR [facility] N/A: Spine Lumbar 02/01/2026 [id number] / / [id number] Medtronic Lead Kit 60cm Implanted:Qty: 1 on 08/22/2022 by Rafia Small MD at OR [facility] N/A: Spine Lumbar 03/21/2026 [id number] / / [id number] Envelope Tyrx Med Antibacteril - [id number] Implanted:Qty: 1 on 08/22/2022 by Rafia Small MD at OR [facility] N/A: Spine Lumbar [employer] 03/10/2023 [id number] / / [id number] Hemostatic Clip Res 235cm - [id number] Implanted:Qty: 4 on 10/05/2023 by Aj Pruett DO at ENDOSCOPY [facility] : ENDOSCOPY 02/03/2026 [id number] / / Hemostatic Clip Res 235cm - [id number] Implanted:Qty: 1 on 10/05/2023 by Aj Pruett DO at ENDOSCOPY [facility] : ENDOSCOPY 02/02/2026 [id number] / / documented as of this encounter [...] the patient have Health Care Power of Program Proposals Coordinator? No Code Status History Code Status Date Activated Date Inactivated Comments Full Code 01/21/2011 12:12 PM 01/22/2011 8:48 PM This order reflects the patients wishes and were consensually agreed upon. Question Answer Comments Discussion of Advance Directives occurred with: Patient Does the patient have a Living Will? No Does the patient have Health Care Power of Program Proposals Coordinator? No Care Teams Curriculum And Assessment Director Relationship Specialty Start Date End Date Scott Weldon MD [address] [place] [address] PCP - General Family Medicine 08/03/18 documented as of this encounter
--- OUTSIDE RECORDS SUMMARY | 2024-02-02 08:56 | External Medical Summary | Summary of Care ---
Author Name Unknown Organization [facility] Address [address] [facility] [place] [address] Phone [phone] Care Team Providers Care Diploma Pharmacy Technician Name Role Phone Scott Weldon MD Primary Care Provider + Reason for Visit * Reason Onset Date Comments Advice 10/05/2023 Encounter Details Date Type Department Care Team (Late st Contact Info) Description 10/05/2023 Telephone NephrologyRoney [address] [place] [address] Jonathan Mathew MD 200 [facility] [place] [address] Advice Allergies Active Allergy Reactions Criticality Noted Date Comments Naproxen Sodium Bleeding High 11/29/2013 Pollen 12/03/2022 Seasonal Food (See Comments) Anaphylaxis High 04/20/2019 Hot peppers (oils) Kiwi Extract Anaphylaxis High 04/20/2019 documented as of this encounter (statuses as of 10/06/2023) Medications Medication Sig Dispensed Refills Start Date [...] Strip 5 02/17/2017 Active Insulin Infusion Pump (MINIMdot life, ltd. 630G INSULIN PUMP) KITIndications:Type 2 diabetes mellitus with hemoglobin A1c goal of less than 8.0% ([facility]) Use as directed. 0 [...] [facility]) INJECT UP TO 200 [...] Oxide 10 % External Cream Apply 1 [place] topically to affected area once. Apply to buttocks area as needed 0 Active Sucralfate 1 GM Oral Tablet (Carafate) Take 1 Tablet by mouth in the morning and 1 Tablet before bedtime. 120 Tablet 0 10/05/2023 Active documented as of this encounter (statuses as of 10/06/2023) Active Problems Problem Noted Date Diagnosed Date [...] 07/17/2016 Overview: 09/29 colon + polyps PATH PEND. EGD Grade II esoph varices, multiple gastric polyps Need pap/mammo. UTOX due 08/26 10/28 EGD-Mild [...] as of this encounter (statuses as of 10/06/2023) Resolved Problems Problem Noted Date Diagnosed Date [...] as of this encounter (statuses as of 10/06/2023) Immunizations Name Administration Dates Next Due COVID-19 mRNA, LNP-s, No Pre serve, 2-Dose Series (SidelineSwap) 11/08/2020,10/11/2020 HEP A - Hepatitis A (Adult > 18 yrs) 04/11/2011, 09/20/2010 Hepatitis B, 20+ yrs 07/05/2015 Pneumococcal Conjugate Vacci ne, 20-valent ([id number]) 03/13/2023 Pneumococcal Polysaccharide PPV23 (Pneumovax) 02/19/2018,03/09/2007 Seasonal [...] encounter Miscellaneous Notes * Telephone Encounter - Jonathan Mathew MD - 10/06/2023 11:35 AM EDT Will decide after nurse visit with edema and BP * Telephone Encounter - Zora Nunn LPN - 10/05/2023 4:10 PM EDT Pt has not stopped any rx that she was advised back on 09/24/23 States she can not stop the Baclofinor she will be miserable States the other she remembers getting the message but just forgot to stopPt is advised to keep weight/BP check Will advise Dr Mathew in regards to meds * Telephone Encounter - Santa Bee OSA - 10/05/2023 1:33 PM EDT Pt called back to talk about meds [phone] * Telephone Encounter - Zora Nunn LPN - 10/05/2023 1:11 PM EDT Pt is aware of lab results Pt notes edema to left ankle but states I usually always have it Pt justfinished colonoscopy and EGD today but appetite remains off Has not been weighed for awhile Pt willbe scheduled for a Nurse visit for weight check and BP on 10/08/23 @ 1100@ SP office * Telephone Encounter - Zora Nunn LPN - 10/05/2023 1:11 PM EDT ----- Message from Jonathan Mathew MD sent at 10/05/2023 12:48 PM EDT ----- Renal function substantially better up to 44 from 28. How are you feeling ? Edema, Appetite, BP wt loss etc. If possible would get a nephro nurse visit to have BP and wt checked. Will need some guidance as we have stopped a lot of meds currently. documented in this encounter Plan of Treatment Upcoming Encounters Date Type Department Care Team (Late st Contact Info) Description 10/07/2023 9:30 AM EDT Telemedicine Psychiatry, [address] [place] [address] Rj Mai MD [address] [place] [address] 10/08/2023 11:00 AM EDT Nurse Only Nephrology, [address] [place] [address] Sp, Nurse Nephrology 200 [facility] [place] [address] 10/12/2023 2:30 PM EDT Office Visit General Surgery, [facility] 132 [facility] [place] [address] Mariano Billingsley MD 132 [facility] [address] 11/04/2023 1:30 PM EDT Immunization/Injection Hematology/Oncology Treatment, [place] [facility] [phone] Nurse, Med 4 200 [facility] [place] [address] 11/05/2023 1:00 PM EDT Telemedicine Pharmacy, [facility] [place] [address] [facility] [place] [address] 11/13/2023 9:10 AM EDT Office Visit [facility], [place] [address] [facility], [place] [address] [facility] [address] [place] [place] [address] 11/24/2023 9:20 AM EDT Office Visit Sleep Disorders Ctr [facility] 132 [facility] [place] [phone] Lakisha Murcia DO [address] [place] [address] 11/25/2023 2:20 PM EDT Office Visit [facility] [place] [address] Scott Weldon MD 132 [facility] [place] [address] 02/09/2024 8:00 AM EDT Telemedicine Gastroenterology, [address] [phone] Charlee Fields MD [address] [place] [address] 02/24/2024 2:15 PM EDT Office Visit Hematology/Oncology [facility] [place] [address] [place] [phone] Sunil [place]geois MD [address] [place] [address] 03/16/2024 12:20 PM EDT Office Visit [facility] 132 [facility] [place] [address] Scott Weldon MD [address] [place] [address] 03/24/2024 12:30 PM EDT Office Visit Ophthalmology, [facility] 132 [facility] [place] [address] Rolan Self, DO [address] [place] [address] 06/03/2024 10:40 AM EST Office Visit Nephrology, [facility] [place] 200 [facility] [place] [address] Jonathan Mathew MD 200 [facility] [place] [address] Health Maintenance Due Date Last Done Comments [...] 01/0 09/2022, 06/14/2020, Additional history exists GFR 10/01/2024 10/02/2023, 09/06, 09/08/2023, Additional history exists Pap Smear 09/07/2026 09/08/2023, 10/2014, 04/12/2015, Additional history exists DTaP,Tdap,and Td Vaccines (3 - Td or Tdap) 08/05/2028 08/05/2018, 05/15/2008 Cervical Cancer Screening 09/07/2028 HPV/Co-Test 09/07/2028 09/08/2023 Colonoscopy 10/04/2028 10/05/2023, 06/09, 06/27/2015, Additional history exists Colorectal Cancer Screening 10/04/2028 Influenza Vaccine (FLU shot) Completed 03/13/2023, 03/01/2021, 02/28/2020, Additional history exists Pneumococcal Vaccine: Pediatrics (0 to 5 Years) and At-Risk Patients (6 to 64 Years) Completed 03/13/2023, 02/19/2018, 03/09/2007 RETIRED - COLONOSCOPY-EVERY 5 YRS AGES 18-100 Discontinued 10/05/2023, 06/27/2015, 06/27/2015, Additional history exists GARDASIL-HPV IMMUNIZATION SERIES Aged Out No longer eligible based on patient's age to complete this topic MENINGOCOCCAL (MENACTRA/MENVEO) Aged Out No longer eligible based on patient's age to complete this topic documented as of this encounter Medical Devices Implanted Type Area Monument Setter Helper Device Identifier Shelf Expiration Date Model / Serial / Lot Neurostimul Intellis Adaptiv - [id number] - [id number] Implanted:Qty: 1 on 08/22/2022 by Rafia Small MD at OR [facility] N/A: Spine Lumbar [employer] 06/21/2023 [id number] / [id number] / Description:battery Medtronic Lead Kit 60 Cm Implanted:Qty: 1 on 08/22/2022 by Rafia Small MD at OR [facility] N/A: Spine Lumbar 02/01/2026 [id number] / / [id number] Medtronic Lead Kit 60cm Implanted:Qty: 1 on 08/22/2022 by Rafia Small MD at OR [facility] N/A: Spine Lumbar 03/21/2026 [id number] / / [id number] Envelope Tyrx Med Antibacteril - [id number] Implanted:Qty: 1 on 08/22/2022 by Rafia Small MD at OR [facility] N/A: Spine Lumbar [employer] 03/10/2023 [id number] / / [id number] Hemostatic Clip Res 235cm - [id number] Implanted:Qty: 4 on 10/05/2023 by Aj Pruett DO at ENDOSCOPY [facility] : ENDOSCOPY 02/03/2026 [id number] / / Hemostatic Clip Res 235cm - [id number] Implanted:Qty: 1 on 10/05/2023 by Aj Pruett DO at ENDOSCOPY [facility] : ENDOSCOPY 02/02/2026 [id number] / / documented as of this encounter [...] the patient have Health Care Power of Isotope Hydrologist? No Code Status History Code Status Date Activated Date Inactivated Comments Full Code 01/21/2011 12:12 PM 01/22/2011 8:48 PM This order reflects the patients wishes and were consensually agreed upon. Question Answer Comments Discussion of Advance Directives occurred with: Patient Does the patient have a Living Will? No Does the patient have Health Care Power of Isotope Hydrologist? No Care Teams Diploma Pharmacy Technician Relationship Specialty Start Date End Date Scott Weldon MD [address] [place] [address] PCP - General Family Medicine 08/03/18 documented as of this encounter
--- OUTSIDE RECORDS SUMMARY | 2024-02-02 08:56 | External Medical Summary | Summary of Care ---
Author Name Unknown Organization [facility] Address [address] [place] [address] Phone [phone] Care Team Providers Care Diathermy Equipment Repairer Name Role Phone Scott Weldon MD Primary Care Provider + Encounter Details Date Type Department Care Team (Late st Contact Info) Description 10/07/2023 9:30 AM EDT Telemedicine Psychiatry, [address] [address] Rj Mai MD [address] [place] [address] MICHELLE (generalized anxiety disorder)* Allergies [...] Strip 5 02/17/2017 Active Insulin Infusion Pump (MINIM[employer] Micro[employer] 630G INSULIN PUMP) KITIndications:Type 2 diabetes mellitus [...] varices without bleeding, unspecified esophageal varices type ([facility]),Colitis Take 1 Tablet by mouth in [...] Oxide 10 % External Cream Apply 1 [place] topically to affected area once. Apply to [...] mRNA, LNP-s, No Pre serve, 2-Dose Series ([employer]) 11/08/2020,10/11/2020 HEP A - Hepatitis A (Adult > 18 yrs) 04/11/2011, 09/20/2010 Hepatitis B, 20+ yrs 07/05/2015 Pneumococcal Conjugate Vacci ne, 20-valent ([id number]) 03/13/2023 Pneumococcal Polysaccharide PPV23 (Pneumovax) 02/19/2018,03/09/2007 Seasonal [...] Progress Notes * Rj Mai MD - 10/07/2023 9:31 AM EDT Patient location: HOME. I was not in a hospital or clinic location. After connecting through televideo, patient was verified with two unique identifiers. Patient (or authorized legal computer help desk representative) was then informed that this was a Telemedicine visit and being conducted confidentially over secure lines. Methods to assure confidentiality were taken. Patient acknowledged consent and understanding of privacy and security of the Telemedicine visit. The patient agreed to participate. PSYCHOTHERAPY & MEDICATION MANAGEMENT RETURN VISIT NOTE CHIEF COMPLAINT: f/u appt INTERVAL HISTORY: she states she is "ok". Finally sleeping better-- discuss decrease Lunesta at future appt to minimize tolerance/dep. Notes ongoing family stressors especially with son's fiance. GotDL and has started driving again-- short trips. Feels this has been positive. Ongoing medical w/u for edema/fluid/renal issues. ROS EXAM: negative except as noted above [...] Injection Kit As directed 1 Kit 3 Magnesium Oxide 400 (240 Mg) MG Oral Tablet (Mag-Ox) TAKE 1 TABLET BY MOUTH EVERY DAY 90 Tablet 3 Dicyclomine HCl 20 MG Oral Tablet (Bentyl) Take 1 Tablet by mouth 2 times a day as needed for Pain or Cramping. 180 Tablet 3 Naloxone HCl 4 MG/0.1ML Nasal Liquid (Narcan Nasal) Administer 1 spray into 1 nostril for suspectedopioid overdose. Seek immediate medical attention. [email or web address]://[email or web address].com/[email or web address]?[email or web address] (Patient not taking: Reported on 10/05/2023) 1 Each 3 Atenolol 100 MG Oral Tablet (Tenormin) TAKE 1 TABLET BY MOUTH TWICE A DAY 180 Tablet 3 Loratadine 10 MG Oral Tablet (Claritin) TAKE 1 TABLET BY MOUTH IN THE MORNING FOR ALLERGIES. (Patient taking differently: Take 1 Tablet by mouth in the morning. For allergies..) 90 Tablet 1 Metoclopramide HCl 5 MG [...] 60 to 180 days 1 Each 1 NovoLIN R ReliOn 100 UNIT/ML Injection [...] HOURS NEEDED FOR NAUSEA 30 Tablet 0 metroNIDAZOLE 500 MG Oral Tablet Take 1 Tablet by mouth in the morning and 1 Tablet at noon and 1 Tablet before bedtime. (Patient not taking: Reported on 10/01/2023) Cefdinir 300 MG Oral Capsule (Omnicef) Take 1 Capsule by mouth in the morning and 1 Capsule before bedtime. (Patient not taking: Reported on 10/01/2023) Escitalopram Oxalate 20 MG Oral Tablet (Lexapro) Take 1 Tablet by mouth in the morning. 90 Tablet 1 Pantoprazole Sodium 40 MG Oral Tablet Delayed Release (Protonix) Take 1 Tablet by mouth in the morning. 90 Tablet 3 hydrOXYzine HCl 25 MG Oral Tablet Take 1 tab during the day every 4-6 hours as needed for anxiety and take 2 tabs at bedtime as needed for anxiety 120 Tablet 1 Atorvastatin Calcium 40 MG Oral Tablet (Lipitor) TAKE 1 TABLET BY MOUTH EVERY DAY IN THE MORNING (Patient taking differently: Take 1 Tablet by mouth at bedtime.) 90 Tablet 3 Albuterol Sulfate HFA 108 (90 Base) MCG/ACT Inhalation Aerosol Solution INHALE 2 PUFFS BY MOUTH EVERY 6 HOURS NEEDED FOR SHORTNESS OF BREATH 18 g 2 Buprenorphine 5 MCG/HR Transdermal Patch Weekly (Butrans) Place 1 Patch topically on the skin once a week. (Patient taking differently: Place 1 Patch topically on the skin once a week.) 4 Patch 0 Eszopiclone 2 MG Oral Tablet (Lunesta) Take 1 Tablet by mouth at bedtime. 30 Tablet 1 Zinc Oxide 10 % External Cream Apply 1 [place] topically to affected area once. Apply to buttocks area as needed Sucralfate 1 GM Oral Tablet (Carafate) Take 1 Tablet by mouth in the morning and 1 Tablet before bedtime. 120 Tablet 0 No current facility-administered medications for this visit. STRATEGIES: Supportive listening LABS: Component Latest Ref Rng 08/27/2023 BUN 6 - 20 mg/dL 18 Creatinine 0.5 - 1.0 mg/dL 1.4 (H) Estimated Glomerular Filtration Rate >=60 mL/min 45 (L) Sodium 135 - 146 mmol/L 141 Potassium 3.5 - 5.1 mmol/L 4.6 Chloride 98 - 107 mmol/L 102 CO2 22 - 32 mmol/L 30 Anion Gap 7 - 15 mmol/L 9 Glucose 70 - 120 mg/dL 151 (H) Calcium 8.4 - 10.2 mg/dL 8.8 Albumin 3.8 - 5.0 g/dL 4.0 MENTAL STATUS EVALUATION: Appearance: casually dressed Behavior: [...] Wearing CPAP each night for DONNA Return 6 weeks Risk/Benefits of Medication Discussed/Verbalized Understanding yes [...] 2:30 PM EDT Office Visit General Surgery, [facility] [address] [facility] [place] [address] Mariano Billingsley MD [address] [facility] [place] [address] 11/04/2023 1:30 PM EDT Immunization/Injection Hematology/Oncology Treatment, [place] [address] [place] [phone] [facility] [address] [facility] [address] 11/05/2023 1:00 PM EDT Telemedicine Pharmacy, [facility] [address] [facility] [place] [address] [address] [address] 11/13/2023 9:10 AM EDT Office Visit Pharmacy, [address] [address] 11/23/2023 12:30 PM EDT Telemedicine Psychiatry, [address], [place] [address] Rj Mai MD [address] [place] [address] 11/24/2023 9:20 AM EDT Office Visit Sleep Disorders Ctr [facility] [address] [facility] [place] [phone] Lakisha Murcia DO [address] [place] [address] 11/25/2023 2:20 PM EDT Office Visit Family Practice [facility] [address] [facility] [place] [address] Scott Weldon MD [address] [facility] [place] [address] 02/09/2024 8:00 AM EDT Telemedicine Gastroenterology, [facility] [address] [facility] [place] [address] Charlee Fields MD [address] [place] [address] 02/24/2024 2:15 PM EDT Office Visit Hematology/Oncology Roney Melendez [place] [address] [place] [phone] Sunil Bourgeois MD [address] [place] [address] 03/16/2024 12:20 PM EDT Office Visit Family Practice [facility] [address] [facility] [place] [address] Scott Weldon MD [address] [facility] [place] [address] 03/24/2024 12:30 PM EDT Office Visit Ophthalmology, [facility] [address] [facility] [place] [address] Rolan eSlf, DO [address] [place] [address] 06/03/2024 10:40 AM EST Office Visit Nephrology, [facility] [address] [place], [place] [address] Jonathan Mathew MD [address] [place] [address] Health Maintenance Due Date Last Done Comments Cologuard 2017 Fecal Occult Blood Test 2017 Sigmoidoscopy 2017 Diabetic Eye Exam 01/16/2023 01/16/2022, , 12/14/2019, Additional history exists COVID-19 Vaccine (3 - 2022-24 season) 2023 11/08/2020, 10/11/2020 Zoster Vaccines (2 [...] encounter Medical Devices Implanted Type Area Animal Assistant Device Identifier Shelf Expiration Date Model / Serial / Lot Neurostimul Intellis [employer]iv - [id number] - [id number] Implanted:Qty: 1 on 08/22/2022 by Rafia Small MD at OR [facility] N/A: Spine Lumbar [employer] 06/21/2023 [id number] / [id number] / Description:battery Medtronic Lead Kit 60 Cm Implanted:Qty: 1 on 08/22/2022 by Rafia Small MD at OR [facility] N/A: Spine Lumbar 02/01/2026 [id number] / / [id number] Medtronic Lead Kit 60cm Implanted:Qty: 1 on 08/22/2022 by Rafia Small MD at OR [facility] N/A: Spine Lumbar 03/21/2026 [id number] / / [id number] Envelope Tyrx Med Antibacteril - [id number] Implanted:Qty: 1 on 08/22/2022 by Rafia Small MD at OR [facility] N/A: Spine Lumbar [employer] 03/10/2023 [id number] / / [id number] Hemostatic Clip Res 235cm - [id number] Implanted:Qty: 4 on 10/05/2023 by Aj Pruett DO at END[facility]COPY [facility] 02/03/2026 [id number] / / Hemostatic Clip Res 235cm - [id number] Implanted:Qty: 1 on 10/05/2023 by Aj Pruett DO at [facility]COPY [facility] : END[facility] 02/02/2026 [id number] / / documented as of this encounter [...] the patient have Health Care Power of Flight Engineer Performance Qualified? No Code Status History Code Status Date Activated Date Inactivated Comments Full Code 01/21/2011 12:12 PM 01/22/2011 8:48 PM This order reflects the patients wishes and were consensually agreed upon. Question Answer Comments Discussion of Advance Directives occurred with: Patient Does the patient have a Living Will? No Does the patient have Health Care Power of Flight Engineer Performance Qualified? No Care Teams Diathermy Equipment Repairer Relationship Specialty Start Date End Date Scott Weldon MD [address] [facility] [place] [address] PCP - General Family Medicine 08/03/18 documented as of this encounter
--- OUTSIDE RECORDS SUMMARY | 2024-02-02 08:56 | External Medical Summary | Summary of Care ---
Author Name Unknown Organization [facility] Address [address] [facility] [place] [address] Phone [phone] Care Team Providers [employer] Executive [employer] Name Role Phone Scott Weldon MD Primary Care Provider + Reason for Visit * Auth/Cert Specialty Diagnoses / Procedures Referred By Dory payan Referred To Contact Diagnoses Colon cancer screening Hematemesis without nausea BRBPR (bright red blood per rectum) Colon cancer screening [Z12.11] Hematemesis without nausea [K92.0] BRBPR (bright red blood per rectum) [K62.5] Procedures COLONOSCOPY, DIAGNOSTIC (RECTUM) EGD, FLEXIBLE, DIAGNOSTIC COLONOSCOPY FLEXIBLE PROXIMAL DIAGNOSTIC ESOPHAGOGASTRODUODENOSCOPY (EGD), FLEXIBLE, TRANSORAL, DIAGNOSTIC Aj Pruett DO [address] [place] [address] [facility] [address] [place] [phone] Referral ID Status Reason Start Date Expiration Date Visits Re quested Visits Authorized [id number] [phone] Encounter Details Date Type Department Care Team (Latest Contact Info) Description 10/05/2023 6:56 AM EDT - 10/05/2023 9:26 AM EDT Hospital Encounter [facility], Endoscopy Room [facility] [address] [place] [phone] Aj Pruett DO [address] [place] [address] Various: GICOLON,UGI Discharge Disposition: Home - Self Care Allergies Active Allergy Reactions Criticality Noted Date Comments Naproxen Sodium Bleeding High 11/29/2013 Pollen 12/03/2022 Seasonal Food (See Comments) Anaphylaxis High 04/20/2019 Hot peppers (oils) Kiwi Extract Anaphylaxis High 04/20/2019 documented as of this encounter (statuses as of 10/05/2023) Medications Medication Sig Dispensed Refills Start Date End Date Status ONETOUCH ULTRASOFT LANCETS MISCIndications:DM type 2, not at goal ([facility]) check FS 6 times daily 4 Box [...] than 8.0% ([facility]) Use as directed. 0 07/30/2017 Active CPAP [...] than 8.0% ([facility]),DM type 2, not at goal ([facility]) INJECT UP TO 200 UNITS SUBCUTANEOSULY ONCE [...] 40 mg Oral HS, Reported on 10/01/2023 Buprenorphine 5 MCG/HR Transdermal Patch Weekly (Butrans)Indication [...] Oxide 10 % External Cream Apply 1 [place] topically to affected area once. Apply to buttocks area as needed 0 Active Sucralfate 1 GM Oral Tablet (Carafate) Take 1 Tablet by mouth in the morning and 1 Tablet before bedtime. 120 Tablet 0 10/05/2023 Active documented as of this encounter (statuses as of 10/05/2023) Active Problems Problem Noted Date Diagnosed Date [...] as of this encounter (statuses as of 10/05/2023) Resolved Problems Problem Noted Date Diagnosed Date [...] Overview: Per Obesity Taxonomy Coronary atherosclerosis of [place] coronary artery 09/15/2008 10/03/2008 Malaise and fatigue [...] as of this encounter (statuses as of 10/05/2023) Immunizations Name Administration Dates Next Due COVID-19 mRNA, LNP-s, No Pre serve, 2-Dose Series (Pfizer) 11/08/2020,10/11/2020 HEP A - Hepatitis A (Adult > 18 yrs) 04/11/2011, 09/20/2010 Hepatitis B, 20+ yrs 07/05/2015 Pneumococcal Conjugate Vacci ne, 20-valent ([id number]) 03/13/2023 Pneumococcal Polysaccharide PPV23 (Pneumovax) 02/19/2018,03/09/2007 Seasonal [...] Sign Reading Time Taken Comments Blood Pressure 108/57 10/05/2023 9:01 AM EDT Pulse 76 10/05/2023 9:01 AM EDT Temperature 36.3 C (97.3 F) 10/05/2023 9:01 AM ED T Respiratory Rate 16 10/05/2023 9:01 AM EDT Oxygen Saturation 96% 10/05/2023 9:01 AM EDT Inhaled Oxygen Concentration - - Weight 103 kg (227 lb) 10/05/2023 7:43 AM EDT Height 162.6 cm (5' 4") 10/05/2023 7:43 AM EDT Body Mass Index 38.96 10/05/2023 7:43 AM EDT documented in this [...] No 04/20/2019 documented as of this encounter H&P Notes * Aj Pruett DO - 10/05/2023 7:48 AM EDT Endoscopy Pre-Procedure Assessment Name: Carmen Tyson Date: 10/05/2023 Time: 7:48 AM Procedure(s): Colonoscopy; with Indication(s) of average risk screening Upper GI Endoscopy; with Indication(s) of evaluation and workup of portal hypertension (including varices) Endoscopy Pre-Procedure Assessment: Prior to the procedure, the patient is identified. The patient's history, medications and allergieshave been reviewed. The patient is competent. The risks and benefits of the proposed procedure and the planned sedation have been discussed with the patient. All questions have been answered and informed consent for the procedure has been obtained. Prior to Admission medications Medication Sig Last Dose Discont. Zinc Oxide 10 % External Cream Apply 1 [place] topically to affected area once. Apply to buttocks area as needed 10/04/2023 Eszopiclone 2 MG Oral Tablet (Lunesta) Take 1 Tablet by mouth at bedtime. 10/04/2023 Buprenorphine 5 MCG/HR Transdermal Patch Weekly (Butrans) Place 1 Patch topically on the skin once a week. Patient taking differently: Place 1 Patch topically on the skin once a week. 10/04/2023 Atorvastatin Calcium 40 MG Oral Tablet (Lipitor) TAKE 1 TABLET BY MOUTH EVERY DAY IN THE MORNING Patient taking differently: Take 1 Tablet by mouth at bedtime. 10/04/2023 hydrOXYzine HCl 25 MG Oral Tablet Take 1 tab during the day every 4-6 hours as needed for anxiety and take 2 tabs at bedtime as needed for anxiety 10/04/2023 Pantoprazole Sodium 40 MG Oral Tablet Delayed Release (Protonix) Take 1 Tablet by mouth in the morning. 10/04/2023 Escitalopram Oxalate 20 MG Oral Tablet (Lexapro) Take 1 Tablet by mouth in the morning. 10/04/2023 Ondansetron 8 MG Oral Tablet Disintegrating (Zofran) PLACE 1 TABLET ON TONGUE AND DISSOLVE EVERY 8 HOURS NEEDED FOR NAUSEA Past Month Ozempic (2 MG/DOSE) 8 MG/3ML Subcutaneous Solution Pen-injector (Semaglutide (2 MG/DOSE)) 2 mg once. Ozempic weekly on Sundays Past Week traZODone HCl 100 MG Oral Tablet (Desyrel) Take 1-2 Tablets by mouth at bedtime. 10/04/2023 Pregabalin 100 MG Oral Capsule (Lyrica) TAKE 1 CAPSULE BY MOUTH EVERY DAY IN THE MORNING , AT NOON,AND BEFORE BEDTIME 10/04/2023 NovoLIN R ReliOn 100 UNIT/ML Injection Solution (insulin REGULAR human) INJECT UP TO 200 UNITS SUBCUTANEOSULY ONCE DAILY VIA PUMP 10/05/2023 Meclizine HCl 25 MG Oral Tablet (Antivert) Take 1 Tablet by mouth 3 times a day as needed for Dizziness. Past Month Metoclopramide HCl 5 MG Oral Tablet (Reglan) Take 1 Tablet by mouth in the morning and 1 Tablet at noon and 1 Tablet in the evening. Take before meals. If needed for nausea. 10/04/2023 Atenolol 100 MG Oral Tablet (Tenormin) TAKE 1 TABLET BY MOUTH TWICE A DAY 10/04/2023 Dicyclomine HCl 20 MG Oral Tablet (Bentyl) Take 1 Tablet by mouth 2 times a day as needed for Pain or Cramping. 10/04/2023 Magnesium Oxide 400 (240 Mg) MG Oral Tablet (Mag-Ox) TAKE 1 TABLET BY MOUTH EVERY DAY 10/04/2023 CPAP every night at bedtime. 10/05/2023 Insulin Infusion Pump (MINIMProfind 630G INSULIN PUMP) KIT Use as directed. 10/05/2023 Glucose Blood (SYLVIA CONTOUR NEXT TEST) STRP Use to test blood sugar up to 6 times per day. E11.9 These are the ONLY test strips patient can use with insulin pump 10/04/2023 B-D Ultrafine III, 5MM, Pen MISC Use as directed. Unknown ONETOUCH ULTRASOFT LANCETS MISC check FS 6 times daily 10/04/2023 Albuterol Sulfate HFA 108 (90 Base) MCG/ACT Inhalation Aerosol Solution INHALE 2 PUFFS BY MOUTH EVERY 6 HOURS NEEDED FOR SHORTNESS OF BREATH Over 30 Days Fluconazole 150 MG Oral Tablet (Diflucan) Take 1 Tablet by mouth once for 1 dose. Cefdinir 300 MG Oral Capsule (Omnicef) Take 1 Capsule by mouth in the morning and 1 Capsule before bedtime. Patient not taking: Reported on 10/01/2023 Not Taking metroNIDAZOLE 500 MG Oral Tablet Take 1 Tablet by mouth in the morning and 1 Tablet at noon and 1 Tablet before bedtime. Patient not taking: Reported on 10/01/2023 Not Taking Zoster Vac Recomb Adjuvanted 50 MCG/0.5ML Intramuscular Suspension Reconstituted (Shingrix) Inject 0.5 mL into a large muscle now and repeat dose in 60 to 180 days Loratadine 10 MG Oral Tablet (Claritin) TAKE 1 TABLET BY MOUTH IN THE MORNING FOR ALLERGIES. Patient taking differently: Take 1 Tablet by mouth in the morning. For allergies.. Over 30 Days Naloxone HCl 4 MG/0.1ML Nasal Liquid (Narcan Nasal) Administer 1 spray into 1 nostril for suspectedopioid overdose. Seek immediate medical attention. [email or web address]://[email or web address].com/[email or web address] Patient not taking: Reported on 10/05/2023 Not Taking Glucagon Emergency 1 MG Injection Kit As directed insulin glargine (LANTUS SOLOSTAR) 100 UNIT/ML SOPN 50 units daily in case of pump malfunction Over30 Days Review of patient's allergies indicates: Allergen Reactions Aleve [Naproxen Sodium] Bleeding Food (See Comments) Anaphylaxis Hot peppers (oils) Kiwi Extract Anaphylaxis Environmental [Pollen] Seasonal BP 103/62 | Pulse 81 | Temp 36.1 C (97 F) (Tympanic) | Resp 20 | Ht 1.626 m (5' 4") | Wt 103 kg(227 lb) | SpO2 99% | BMI 38.96 kg/m | BSA 2.16 m Physical Exam: Mental Status Examination: alert and oriented. Airway Examination: normal oropharyngeal airway and neck mobility. Respiratory Examination: clear to auscultation. CV Examination: systolic murmur. ASA Grade: III - A patient with severe systemic disease. Abdomen: nontender Latest Reference Range & Units 10/02/23 13:15 Sodium 135 - 146 mmol/L 141 Potassium 3.5 - 5.1 mmol/L 4.4 Chloride 98 - 107 mmol/L 101 CO2 22 - 32 mmol/L 29 BUN 6 - 20 mg/dL 16 Creatinine 0.5 - 1.0 mg/dL 1.4 (H) Estimated Glomerular Filtration Rate >=60 mL/min 44 (L) Anion Gap 7 - 15 mmol/L 11 Glucose 70 - 120 mg/dL 159 (H) Calcium 8.4 - 10.2 mg/dL 8.7 Phosphorus 2.5 - 4.8 mg/dL 3.1 CBC Rpt ! WBC 4.00 - 10.80 K/uL 7.09 RBC 3.85 - 5.15 M/uL 4.18 HGB 12.0 - 15.3 g/dL 11.8 (L) HCT 36.0 - 45.2 % 38.6 MCV 81.5 - 97.5 fL 92.3 MCH 27.0 - 34.0 pg 28.2 MCHC 32.0 - 36.0 g/dL 30.6 RDW 11.5 - 15.5 % 15.4 PLT 140 - 400 K/uL 99 (L) MPV 6.6 - 11.1 fL 10.7 (H): Data is abnormally high (L): Data is abnormally low !: Data is abnormal Rpt: View report in Results Review for more information This patient has undergone a preprocedural evaluation. A determination has been made to proceed with the planned procedure under [facility] procedural guidelines and the [facility] Non-Emergent, Elective Medical Services and Treatment Recommendations (published on 09-13-19). The community and hospital prevalence of COVID-19 has been discussed as well as this patient's specific risks associated with SARS-CoV-19 infection. Based upon the clinical acuity and patient-specific care considerations, this procedure is deemed a Tier II - Intermediate acuity treatment or service with either progression or the threat of progressive disease related to the delay in treatment. Not providing the service has the potential for increasing morbidity or mortality. After reviewing the risks and benefits, the patient is deemed in satisfactory condition to undergo the procedure. The anesthesia plan is to use general anesthesia. We have discussed the risks and benefits of upper endoscopy to include bleeding, infection, perforation, discomfort, aspiration and need for follow-up studies. I have discussed the risks of colonoscopy to include bleeding, infection, perforation, pain, missedpolyps, and need for follow-up studies. Aj Pruett DO 10/05/2023 documented in this encounter Procedure Notes * Kayla Bennett PA-C - 10/05/2023 7:53 AM EDTAssociated Order(s): UPPER GI ENDOSCOPY [facility] Patient Name: Carmen Tyson Procedure Date: 10/05/2023 7:53 AM Date of : 1970 Admit Type: Outpatient Note Status: Finalized Date of : 1970 Admit Type: Outpatient Age: 53 Room: Advanced Endo Gender: Female Note Status: Finalized Procedure: Upper GI endoscopy Indications: Follow-up of esophageal varices Providers: Aj Pruett DO (Doctor) Referring MD: [place] Daredn (Referring MD), Scott Weldon MD (Referring MD), Charlee Fields MD (Referring MD) Medicines: See the Anesthesia note for documentation of the administered medications Complications: No immediate complications. Estimated blood loss: Minimal. Procedure: Pre-Anesthesia Assessment: - Prior to the procedure, a History and Physical was performed, and patient medications, allergies and sensitivities were reviewed. The patient's tolerance of previous anesthesia was reviewed. - The risks and benefits of the procedure and the sedation options and risks were discussed with the patient. All questions were answered and informed consent was obtained. - Patient identification and proposed procedure were verified prior to the procedure by the physician, the nurse and the consumer relations specialist. The procedure was verified in the procedure room. - Pre-procedure physical examination revealed no contraindications to sedation. - ASA Grade Assessment: III - A patient with severe systemic disease. - After reviewing the risks and benefits, the patient was deemed in satisfactory condition to undergo the procedure. - The anesthesia plan was to use general anesthesia. - Immediately prior to administration of medications, the patient was re- assessed for adequacy to receive sedatives. - The heart rate, respiratory rate, oxygen saturations, blood pressure, adequacy of pulmonary ventilation, and response to care were monitored throughout the procedure. - The physical status of the patient was re-assessed after the procedure. After obtaining informed consent, the endoscope was passed under direct vision. All instruments were visually inspected immediately before and after removal from the patient to ensure they are fully intact. Throughout the procedure, the patient's blood pressure, pulse, and oxygen saturations were monitored continuously. The PCF-H190L Colonoscope ([id number]) was introduced through the mouth, and advanced to the third part of duodenum. The upper GI endoscopy was accomplished without difficulty. The patient tolerated the procedure well. Findings & Specimens: Three columns of grade II varices with no bleeding and no stigmata of recent bleeding were found inthe lower third of the esophagus, 32 to 39 cm from the incisors. They were 4 mm in largest diameter. Nored sukhjinder signs were present. Moderate portal hypertensive gastropathy was found in the entire examined stomach. Multiple 5 to 7 mm semi-sessile polyps with bleeding and stigmata of recent bleeding were found in the gastric body and in the gastric antrum. Four polyps were removed with a hot snare. Resection and retrieval were complete using a suction (via the working channel). Five hemostatic clips were successfully placed (MR conditional, SnackFeed) to close the polypectomy site. The pathology specimen was placed into Bottle A. Estimated blood loss was minimal. The examined duodenum was normal. Impression: - Grade II esophageal varices with no bleeding and no stigmata of recent bleeding. - Portal hypertensive gastropathy. - Multiple gastric polyps. Resected and retrieved. Clips (MR conditional) were placed. - Normal examined duodenum. Recommendation: - The patient will be observed post-procedure, until all discharge criteria are met. - Advance diet as tolerated today. - Repeat upper endoscopy in 6 months for surveillance. Aj Pruett DO 10/05/2023 8:49:10 AM This report has been signed electronically. * Kayla Bennett PA-C - 10/05/2023 7:51 AM EDTAssociated Order(s): COLONOSCOPY [facility] Patient Name: Carmen Tyson Procedure Date: 10/05/2023 7:51 AM Date of : 1970 Admit Type: Outpatient Note Status: Finalized Date of : 1970 Admit Type: Outpatient Age: 53 Room: [facility] Gender: Female Note Status: Finalized Procedure: Colonoscopy Indications: Screening for colorectal malignant neoplasm, Last colonoscopy: June 2015 Providers: Aj Pruett DO (Doctor) Referring MD: [place] Waite (Referring MD), Scott Weldon MD (Referring MD) Complications: No immediate complications. Estimated blood loss: Minimal. Procedure: Pre-Anesthesia Assessment: - Prior to the procedure, a History and Physical was performed, and patient medications, allergies and sensitivities were reviewed. The patient's tolerance of previous anesthesia was reviewed. - The risks and benefits of the procedure and the sedation options and risks were discussed with the patient. All questions were answered and informed consent was obtained. - Patient identification and proposed procedure were verified prior to the procedure by the physician, the nurse and the consumer relations specialist. The procedure was verified in the procedure room. - Pre-procedure physical examination revealed no contraindications to sedation. - ASA Grade Assessment: III - A patient with severe systemic disease. - After reviewing the risks and benefits, the patient was deemed in satisfactory condition to undergo the procedure. - The anesthesia plan was to use general anesthesia. - Immediately prior to administration of medications, the patient was re- assessed for adequacy to receive sedatives. - The heart rate, respiratory rate, oxygen saturations, blood pressure, adequacy of pulmonary ventilation, and response to care were monitored throughout the procedure. - The physical status of the patient was re-assessed after the procedure. After I obtained informed consent, the scope was passed under direct vision. All instruments were visually inspected immediately before and after removal from the patient to ensure they are fully intact. Throughout the procedure, the patient's blood pressure, pulse, and oxygen saturations were monitored continuously. The PCF-H190L Colonoscope ([id number]) was introduced through the anus and advanced to the terminal ileum. The colonoscopy was performed without difficulty. The patient tolerated the procedure well. The quality of the bowel preparation was adequate to identify polyps 6 mm and larger in size. Findings & Specimens: Hemorrhoids were found on perianal exam. The terminal ileum appeared normal. A 5 mm polyp was found in the cecum. The polyp was sessile. The polyp was removed with a hot snare. Resection and retrieval were complete. The pathology specimen was placed into Bottle B. To prevent bleeding after the polypectomy, one hemostatic clip was successfully placed (MR conditional). Therewas no bleeding at the end of the procedure. A 3 mm polyp was found in the rectum. The polyp was sessile. The polyp was removed with a cold snare. Resection and retrieval were complete. The pathology specimen was placed into Bottle C. Estimated blood loss was minimal. Internal hemorrhoids were found during retroflexion. The hemorrhoids were mild. The exam was otherwise without abnormality. Impression: - Hemorrhoids found on perianal exam. - The examined portion of the ileum was normal. - One 5 mm polyp in the cecum, removed with a hot snare. Resected and retrieved. Clip (MR conditional) was placed. - One 3 mm polyp in the rectum, removed with a cold snare. Resected and retrieved. - Internal hemorrhoids. - The examination was otherwise normal. Recommendation: - The patient will be observed post-procedure, until all discharge criteria are met. - Advance diet as tolerated today. - Repeat colonoscopy in 3 - 5 years for surveillance based on pathology results. Aj Pruett DO 10/05/2023 8:45:10 AM This report has been signed electronically. documented in this encounter Nursing Notes * Carmelita Bone RN - 10/05/2023 9:25 AM EDT Patient is alert, pain free and tolerating po fluids prior to discharge. Patient has been visited by Dr. Aj Pruett. Patient has received and demonstrates understanding of discharge instructions. Patient is transported via w/c to private auto accompanied by endo staff into 's care. Pt's aware that pt has a rx to be picked up at [facility] in [place]. * Carmelita Bone RN - 10/05/2023 9:16 AM EDT Procedure findings and d/c instructions reviewed w/ pt. Copies given including info about colon polyps and hemorrhoids. Clip card provided and reviewed w/ pt. Pt instructed on use of Carafate 1gm am and hx. Rx to be picked up at [facility] in [place]. Verbalized understanding. Called to schedule pt's 6month f/u EGD, supervisor of way Santa aware and will eduardo pt back once the order has been placed in the chart. VSS. Monitor d/c'd. Assisted into chair to dress. Dressing indep at bedside. Call scott in reach. * Carmelita Bone RN - 10/05/2023 8:55 AM EDT HOB upright. Aakash liquids w/o problems. Glasses and upper partial returned to pt. Dr Pruett in to speak w/ pt regarding procedure findings. * Sly Funes RN - 10/05/2023 8:47 AM EDT Specimen(s) and location(s) verified with physician post procedure 8:47 AM Sly Funes RN Mid abdominal pressure given per Dr. Aj Pruett to assist with scope advancement. Pt tolerated well See anesthesia record for medication administered during procedure. Sly Funes RN Pre cleaning of scope at the bedside started by dental service technician. * Carmelita Bone RN - 10/05/2023 8:46 AM EDT Pt received in recovery lying on L side w/ HOB elevated. Abd soft. VSS. Call scott in reach. * Shelly Nolan RN - 10/05/2023 7:59 AM EDT Patient prepped and ready for procedure. Call scott in reach. * Shelly Nolan RN - 10/05/2023 7:20 AM EDT The following pt discharge instructions reviewed with pt prior to prodedure: No driving today. No alcohol today. No signing of legal documents. Rest as much as possible today and can return to normal activities tomorrow. No operating any heavy equipment today. Diet as tolerated. Pt verbalized understanding. Patient does not meet criteria for testing. documented in this encounter Plan of Treatment Upcoming Encounters Date Type Department Care Team (Late st Contact Info) Description 10/08/2023 11:00 AM EDT Nurse Only Nephrology, [place] [address] [place], [place] [address] Sp, Nurse Nephrology [address] [facility] [place], [place] [address] 10/12/2023 2:30 PM EDT Office Visit General Surgery, [facility] [address] [place] [address] Mariano Billingsley MD [address] [place] [address] 11/04/2023 1:30 PM EDT Immunization/Injection Hematology/Oncology Treatment, [place] [address] [place], [place] [id number] Nurse, Med [address] [facility] [place], [place] [address] 11/05/2023 1:00 PM EDT Telemedicine Pharmacy, [facility] [address] [place] [address] [place] [address] [facility] [place] [address] 11/13/2023 9:10 AM EDT Office Visit Pharmacy, [address] [address] 11/24/2023 9:20 AM EDT Office Visit Sleep Disorders Ctr [facility] [address] [place] [phone] Lakisha Murcia DO [address] [place] [address] 11/25/2023 2:20 PM EDT Office Visit Family Practice [facility] [address] [place] [address] Scott Weldon MD [address] [facility] [place] [address] 02/09/2024 8:00 AM EDT Telemedicine Gastroenterology, [facility] [address] [place] [address] Charlee Fields MD [address], [place] [id number] 02/24/2024 2:15 PM EDT Office Visit Hematology/Oncology [place] [address] [facility] [place] [id number] Sunil Bourgeois MD [address] [facility] [place] [address] 03/16/2024 12:20 PM EDT Office Visit Family Practice [facility] [address] [facility] [place] [address] Scott [facility] [address] 03/24/2024 12:30 PM EDT Office Visit Ophthalmology, [facility] 132 [facility] [place] [address] Rolan Self, DO [address] [place] [address] 06/03/2024 10:40 AM EST Office Visit Nephrology, [facility] [place] [address] Jonathan Mathew MD [address] [facility] [place] [address] Pending Results Name Type Priority Associated Diagnoses Date /Time SURGICAL PATHOLOGY Pathology Routine Colon cancer screening Hematemesis without nausea BRBPR (bright red blood per rectum) 10/05/2023 8:44 AM EDT Scheduled Orders Name Type Priority Associated Diagnoses Order Schedule GLUCOSE METER, POINT OF CARE (COMMUNICATION ORDER) Point of Care Testing Routine As Needed until discontinued starting 10/05/2023 SURGICAL PATHOLOGY Pathology Routine Colon cancer screening Hematemesis without nausea BRBPR (bright red blood per rectum) Release Upon Ordering for 1 Occurrences starting 10/05/2023 Scheduled Procedures Name Priority Associated Diagnoses Date/Ti me COLONOSCOPY FLEXIBLE PROXIMA L DIAGNOSTIC Colon cancer screening Hematemesis without nausea BRBPR (bright red blood per rectum) 10/05/2023 8:06 AM EDT ESOPHAGOGASTRODUODENOSCOPY ( EGD), FLEXIBLE, TRANSORAL, DIAGNOSTIC Colon cancer screening Hematemesis without nausea BRBPR (bright red blood per rectum) 10/05/2023 8:06 AM EDT Health Maintenance Due Date Last Done Comments Cologuard 2017 Fecal Occult Blood Test 2017 Sigmoidoscopy 2017 Diabetic Eye Exam 01/16/2023 01/16/2022, , 12/14/2019, Additional history exists COVID-19 Vaccine ( season) 2023 11/08/2020, 10/11/2020 Zoster Vaccines (2 of 2) 06/14/2023 04/19/2023 HbA1c 01/21/2024 07/23/2023, 02/06, 06/11/2022, Additional history exists Diabetic Foot Exam 03/13/2024 03/13/2023, 0 10/03/2021, 11/07/2019, Additional history exists Albumin/Creatinine Ratio 07/23/20242 024, [...] this encounter Medical Devices Implanted Type Area Packer Operator Automatic Device Identifier Shelf Expiration Date Model / Serial / Lot Neurostimul Intellis Adaptiv - [id number] - [id number] Implanted:Qty: 1 on 08/22/2022 by Rafia Small MD at OR [facility] N/A: Spine Lumbar [employer] 06/21/2023 [id number] / [id number] / Description:battery Medtronic Lead Kit 60 Cm Implanted:Qty: 1 on 08/22/2022 by Rafia Small MD at OR [facility] N/A: Spine Lumbar 02/01/2026 [id number] / / [id number] Medtronic Lead Kit 60cm Implanted:Qty: 1 on 08/22/2022 by Rafia Small MD at OR [facility] N/A: Spine Lumbar 03/21/2026 [id number] / / [id number] Envelope Tyrx Med Antibacteril - [id number] Implanted:Qty: 1 on 08/22/2022 by Rafia Small MD at OR [facility] N/A: Spine Lumbar [employer] 03/10/2023 [id number] / / [id number] Hemostatic Clip Res 235cm - [id number] Implanted:Qty: 4 on 10/05/2023 by Aj Pruett, DO at ENDOSCOPY [facility] : ENDOSCOPY 02/03/2026 [id number] / / Hemostatic Clip Res 235cm - [id number] Implanted:Qty: 1 on 10/05/2023 by Aj Pruett, DO at ENDOSCOPY [facility] [employer] : ENDOSCOPY 02/02/2026 [id number] / / documented as of this encounter Procedures Procedure Name Priority Date/Time Associated Diagnosis Comments GLUCOSE METER, POINT OF CARE CRISTELA 10/05/2023 7:55 AM EDT UPPER GI ENDOSCOPY 10/05/2023 7: 53 AM EDT COLONOSCOPY 10/05/2023 7:51 AM EDT documented in this encounter Results * GLUCOSE METER, POINT OF CARE (10/05/2023 7:55 AM EDT) Glucose Meter 99 70 - 120 mg/dL 10/05/2023 8:03 AM EDT LABORATORY PORT NED 57-00 Blood Whole blood specimen / Unknown 10/05/2023 7:55 AM EDT 10/05/2023 8:03 AM EDT Aj Pruett DO LAB POINT OF CARE TE ST DOCKED DEVICE UNSOLICITED RESULTS LABORATORY PORT NED 57-00 [address] [facility] [place] [address] * UPPER GI ENDOSCOPY (10/05/2023 7:53 AM EDT) 10/05/2023 7:53 AM EDT Narrative Procedure Note Kayla Bennett PA-C - 10/05/2023 7:[address] [facility] Patient Name: Carmen Tyson Procedure Date: 10/05/2023 7:53 AM Date of : 1970 Admit Type: Outpatient Note Status:Finalized Date of : 1970 Admit Type: Outpatient Age: 53 Room: Advanced Endo Gender: Female Note Status: Finalized Procedure: Upper GI endoscopy Indications: Follow-up of esophageal varices Providers: Aj Pruett DO (Doctor) Referring MD: DEBORAH Darden (Referring MD), Scott Weldon MD(Referring MD), Charlee Fields MD (Referring MD) Medicines: See the Anesthesia note for documentation of theadministered medications Complications: No immediate complications. Estimated blood loss:Minimal. Procedure: Pre-Anesthesia Assessment: - Prior to the procedure, a History and Physicalwas performed, and patient medications, allergies and sensitivities werereviewed. The patient's tolerance of previous anesthesia was reviewed. - The risks and benefits of the procedure and thesedation options and risks were discussed with the patient. All questions wereanswered and informed consent was obtained. - Patient identification and proposed procedurewere verified prior to the procedure by the physician, the nurse and the consumer relations specialist.The procedure was verified in the procedure room. - Pre-procedure physical examination revealed nocontraindications to sedation. - ASA Grade Assessment: III - A patient with severesystemic disease. - After reviewing the risks and benefits, thepatient was deemed in satisfactory condition to undergo the procedure. - The anesthesia plan was to use generalanesthesia. - Immediately prior to administration ofmedications, the patient was re-assessed for adequacy to receive sedatives. - The heart rate, respiratory rate, oxygensaturations, blood pressure, adequacy of pulmonary ventilation, and response to care weremonitored throughout the procedure. - The physical status of the patient wasre-assessed after the procedure. After obtaining informed consent, the endoscope waspassed under direct vision. All instruments were visually inspected immediatelybefore and after removal from the patient to ensure they are fully intact. Throughout the procedure, the patient's bloodpressure, pulse, and oxygen saturations were monitored continuously. The PCF-[id number] ([id number]) was introduced through the mouth, and advanced to the third partof duodenum. The upper GI endoscopy was accomplished without difficulty. The patienttolerated the procedure well. Findings & Specimens: Three columns of grade II varices with no bleeding and no stigmata ofrecent bleeding were found in the lower third of the esophagus, 32 to 39 cm from the incisors. Theywere 4 mm in largest diameter. No red sukhjinder signs were present. Moderate portal hypertensive gastropathy was found in the entireexamined stomach. Multiple 5 to 7 mm semi-sessile polyps with bleeding and stigmata ofrecent bleeding were found in the gastric body and in the gastric antrum. Four polyps were removed witha hot snare. Resection and retrieval were complete using a suction (via the working channel).Five hemostatic clips were successfully placed (MR [employer], [employer]) toclose the polypectomy site. The pathology specimen was placed into Bottle A. Estimated blood loss wasminimal. The examined duodenum was normal. Impression: - Grade II esophageal varices with no bleeding andno stigmata of recent bleeding. - Portal hypertensive gastropathy. - Multiple gastric polyps. Resected and retrieved.Clips (MR conditional) were placed. - Normal examined duodenum. Recommendation: - The patient will be observed post-procedure,until all discharge criteria are met. - Advance diet as tolerated today. - Repeat upper endoscopy in 6 months forsurveillance. Aj Pruett DO 10/05/2023 8:49:10 AM This report has been signed electronically. Kayla Bennett PA-C GASTRO UPPER * COLONOSCOPY (10/05/2023 7:51 AM EDT) 10/05/2023 7:51 AM EDT Narrative Procedure Note Kayla Bennett PA-C - 10/05/2023 7:[address] [facility] Patient Name: Cramen Tyson Procedure Date: 10/05/2023 7:51 AM Date of : 1970 Admit Type: Outpatient Note Status:Finalized Date of : 1970 Admit Type: Outpatient Age: 53 Room: [facility] Gender: Female Note Status: Finalized Procedure: Colonoscopy Indications: Screening for colorectal malignant neoplasm, Lastcolonoscopy: June 2015 Providers: Aj Pruett DO (Doctor) Referring MD: DEBORAH Waite (Referring MD), Scott Weldon MD (Referring MD) Complications: No immediate complications. Estimated blood loss:Minimal. Procedure: Pre-Anesthesia Assessment: - Prior to the procedure, a History and Physicalwas performed, and patient medications, allergies and sensitivities werereviewed. The patient's tolerance of previous anesthesia was reviewed. - The risks and benefits of the procedure and thesedation options and risks were discussed with the patient. All questions wereanswered and informed consent was obtained. - Patient identification and proposed procedurewere verified prior to the procedure by the physician, the nurse and the consumer relations specialist.The procedure was verified in the procedure room. - Pre-procedure physical examination revealed nocontraindications to sedation. - ASA Grade Assessment: III - A patient with severesystemic disease. - After reviewing the risks and benefits, thepatient was deemed in satisfactory condition to undergo the procedure. - The anesthesia plan was to use generalanesthesia. - Immediately prior to administration ofmedications, the patient was re-assessed for adequacy to receive sedatives. - The heart rate, respiratory rate, oxygensaturations, blood pressure, adequacy of pulmonary ventilation, and response to care weremonitored throughout the procedure. - The physical status of the patient wasre-assessed after the procedure. After I obtained informed consent, the scope waspassed under direct vision. All instruments were visually inspected immediatelybefore and after removal from the patient to ensure they are fully intact. Throughout the procedure, the patient's bloodpressure, pulse, and oxygen saturations were monitored continuously. The PCF-[id number] ([id number]) was introduced through the anus and advanced to the terminalileum. The colonoscopy was performed without difficulty. The patient tolerated theprocedure well. The quality of the bowel preparation was adequate to identify polyps 6mm and larger in size. Findings & Specimens: Hemorrhoids were found on perianal exam. The terminal ileum appeared normal. A 5 mm polyp was found in the cecum. The polyp was sessile. The polypwas removed with a hot snare. Resection and retrieval were complete. The pathology specimen wasplaced into Bottle B. To prevent bleeding after the polypectomy, one hemostatic clip was successfullyplaced (MR conditional). There was no bleeding at the end of the procedure. A 3 mm polyp was found in the rectum. The polyp was sessile. Thepolyp was removed with a cold snare. Resection and retrieval were complete. The pathology specimen wasplaced into Bottle C. Estimated blood loss was minimal. Internal hemorrhoids were found during retroflexion. The hemorrhoidswere mild. The exam was otherwise without abnormality. Impression: - Hemorrhoids found on perianal exam. - The examined portion of the ileum was normal. - One 5 mm polyp in the cecum, removed with a hotsnare. Resected and retrieved. Clip (MR conditional) was placed. - One 3 mm polyp in the rectum, removed with a coldsnare. Resected and retrieved. - Internal hemorrhoids. - The examination was otherwise normal. Recommendation: - The patient will be observed post-procedure,until all discharge criteria are met. - Advance diet as tolerated today. - Repeat colonoscopy in 3 - 5 years forsurveillance based on pathology results. Aj Pruett DO 10/05/2023 8:45:10 AM This report has been signed electronically. Kayla Bennett PA-C GASTRO LOWER documented in this encounter Visit Diagnoses Diagnosis Colon cancer screening Special screening for malignant neoplasms, colon Hematemesis without nausea BRBPR (bright red blood per rectum) Hemorrhage of rectum and anus documented in this encounter Administered Medications Inactive Administered Medications - up to 3 most recent administrations Medication Order MAR Action Action Date Dose Rate Site isolyte-S pH 7.4 infusion Intravenous, at 100 mL/hr, Plasma-LYTE 148, isolyte-S, and isolyte-S pH 7.4 are considered equivalent - including for MAR barcode scanning., CONTINUOUS, Starting on Thu10/05/23 at 0800, Until Thu10/05/23 at 1221, Pre-Op Continue from Pre-Op 10/05/2023 8:05 AM EDT 100 mL/hr New Bag 10/05/2023 7:55 AM EDT 100 mL/hr documented in this encounter Active and Recently Administered Medications Times are shown in EDT. Continuous Medication Order 10/03/2023 10/04/2023 10/05/2023 isolyte-S pH 7.4 infusion Intravenous, at 100 mL/hr, Plasma-LYTE 148, isolyte-S, and isolyte-S pH 7.4 are considered equivalent - including for MAR barcode scanning., CONTINUOUS, Starting on Thu10/05/23 at 0800, Until Thu10/05/23 at 1221, Pre-Op 0755 (New Bag - Prov ider: Shelly Nolan RN)0805 (Continue from Pre-Op - Provider: Carl Moncada CRNA)0836 (Anes Intra-Op Fluid - Provider: Carl Moncada CRNA) documented in this encounter Advance Directives Latest [...] the patient have Health Care Power of Door Machine Operator? No Code Status History Code Status Date Activated Date Inactivated Comments Full Code 01/21/2011 12:12 PM 01/22/2011 8:48 PM This order reflects the patients wishes and were consensually agreed upon. Question Answer Comments Discussion of Advance Directives occurred with: Patient Does the patient have a Living Will? No Does the patient have Health Care Power of Door Machine Operator? No Care Teams Solutions Executive Security Relationship Specialty Start Date End Date Scott Weldon MD [address] [place] [address] PCP - General Family Medicine 08/03/18 documented as of this encounter
--- OUTSIDE RECORDS SUMMARY | 2024-02-02 08:57 | External Medical Summary ---
Author Name Unknown Address Unknown Organization : Laboratory Report Ordering Provider Test Date Status KRISHAN WILLAMS 10/05/2023 07:55:17 Final Observation Date Value Abnormality Reference (Units ) Status Glucose Point of Care 10/05/2023 07:55:17 99 70-120 (mg/dL) Final Performing Location
--- OUTSIDE RECORDS SUMMARY | 2024-02-02 08:57 | External Medical Summary | Summary of Care ---
Author Name Unknown Organization [facility] Address [address] [facility] [address] Phone [phone] Care Team Providers Care Grinder Hand Name Role Phone Scott Weldon MD Primary Care Provider + Reason for Visit * Reason Onset Date Comments Advice 10/05/2023 Encounter Details Date Type Department Care Team (Late st Contact Info) Description 10/05/2023 Telephone NephrologyRoney [address] [place] [address] Jonathan Mathew MD [address] [facility] [place] [address] Advice Allergies Active Allergy Reactions Criticality Noted [...] Strip 5 02/17/2017 Active Insulin Infusion Pump (MINIMCydcor 630G INSULIN PUMP) KITIndications:Type 2 diabetes mellitus [...] Oxide 10 % External Cream Apply 1 Bondurant topically to affected area once. Apply to [...] Overview: Per Obesity Taxonomy Coronary atherosclerosis of yocha dehe coronary artery 09/15/2008 10/03/2008 Malaise and fatigue [...] mRNA, LNP-s, No Pre serve, 2-Dose Series (Clinical Insight) 11/08/2020,10/11/2020 HEP A - Hepatitis A (Adult > 18 yrs) 04/11/2011, 09/20/2010 Hepatitis B, 20+ yrs 07/05/2015 Pneumococcal Conjugate Vacci ne, 20-valent ([id number]) 03/13/2023 Pneumococcal Polysaccharide PPV23 (Pneumovax) 02/19/2018,03/09/2007 Seasonal [...] encounter Miscellaneous Notes * Telephone Encounter - Santa Bee OSA - 10/05/2023 1:33 PM EDT Pt called back to talk about meds [phone] * Telephone Encounter - Zora Nunn LPN [...] 11:00 AM EDT Nurse Only Nephrology, [place] [address] [place] [address] Sp, Nurse Nephrology [address] [facility] [place], [place] [address] 10/12/2023 2:30 PM EDT Office Visit General Surgery, [facility] [address] [place] [address] Mariano Billingsley MD [address] [place] [address] 11/04/2023 1:30 PM EDT Immunization/Injection Hematology/Oncology Treatment, [place] [address] [facility] [address] [place], [place] [phone] Nurse, Med 4 [address] [facility] [place] [address] 11/05/2023 1:00 PM EDT [facility]medicine Pharm[facility], [facility] [place] [address] [place] [address] [facility] [place] [address] 11/13/2023 9:10 AM EDT Office Visit Pharmacy, [address] [address] 11/24/2023 9:20 AM EDT Office Visit Sleep Disorders Ctr [facility] [address] [place] [phone] Lakisha Murcia DO [address] [place] [address] 11/25/2023 2:20 PM EDT Office Visit Family Practice [facility] [address] [place] [address] Scott Weldon MD [address] [facility] [place] [address] 02/09/2024 8:00 AM EDT Telemedicine Gastroenterology, [facility] [address] [place] [address] Charlee Fields MD [address], [place] [id number] 02/24/2024 2:15 PM EDT Office Visit Hematology/Oncology [address] [place] [address] [facility] [address] [place] [phone] Sunil Bourgeois MD [address] [facility] [place] [address] 03/16/2024 12:20 PM EDT Office Visit Family Practice [facility] [address] [facility] [place] [address] Scott Wel[facility] [address] [facility] [address] 03/24/2024 12:30 PM EDT Office Visit Ophthalmology, [facility] [address] [facility] [place] [address] Rolan Self, [address] [place] [address] 06/03/2024 10:40 AM EST Office Visit Nephrology, [facility] [address] [place], [place] [address] Jonathan Mathew MD [address] [facility] [place] [address] Scheduled Procedures Name Priority Associated Diagnoses Date/Ti [...] encounter Medical Devices Implanted Type Area Post Doc Fellowship Device Identifier Shelf Expiration Date Model / Serial / Lot Neurostimul Intellis Adaptiv - [id number] - [id number] Implanted:Qty: 1 on 08/22/2022 by Rafia Small MD at OR [facility] N/A: Spine Lumbar [employer] 06/21/2023 [id number] / [id number] / Description:battery Medtronic Lead Kit 60 Cm Implanted:Qty: 1 on 08/22/2022 by Rafia Small MD at OR [facility] N/A: Spine Lumbar 02/01/2026 [id number] / / [id number] Medtronic Lead Kit 60cm Implanted:Qty: 1 on 08/22/2022 by Rafia Small MD at OR [facility] N/A: Spine Lumbar 03/21/2026 [id number] / / [id number] Envelope Tyrx Med Antibacteril - [id number] Implanted:Qty: 1 on 08/22/2022 by Rafia Small MD at OR [facility] N/A: Spine Lumbar [employer] 03/10/2023 [id number] / / [id number] Hemostatic Clip Res 235cm - [id number] Implanted:Qty: 4 on 10/05/2023 by Aj Pruett DO at ENDOSCOPY [facility] [employer] : ENDOSCOPY 02/03/2026 [id number] / / Hemostatic Clip Res 235cm - [id number] Implanted:Qty: 1 on 10/05/2023 by Aj Pruett DO at ENDOSCOPY [facility] [employer] : ENDOSCOPY 02/02/2026 [id number] / / documented as of this encounter [...] the patient have Health Care Power of Agile Scrum Master? No Code Status History Code Status Date Activated Date Inactivated Comments Full Code 01/21/2011 12:12 PM 01/22/2011 8:48 PM This order reflects the patients wishes and were consensually agreed upon. Question Answer Comments Discussion of Advance Directives occurred with: Patient Does the patient have a Living Will? No Does the patient have Health Care Power of Agile Scrum Master? No Care Teams Grinder Hand Relationship Specialty Start Date End Date Scott Weldon MD [address] [facility] [place] [address] PCP - General Family Medicine 08/03/18 documented as of this encounter
--- OUTSIDE RECORDS SUMMARY | 2024-02-02 08:57 | External Medical Summary | Summary of Care ---
Author Name Unknown Organization [facility] Address [address] [facility] [place] [address] Phone [phone] Care Team Providers Care Sld Inclusion Teacher Name Role Phone Scott Weldon MD Primary Care Provider + Reason for Visit * Reason Comments Outpatient Testing Encounter Details Date Type Department Care Team (Late st Contact Info) Description 10/02/2023 12:00 PM EDT Laboratory Laboratory, [place] [address] [place] [address] [place] [address] [place] [address] Stage 3b chronic kidney disease (HCC); DM type 2, not at goal ([facility]) Allergies Active Allergy Reactions Criticality Noted Date Comments Naproxen Sodium Bleeding High 11/29/2013 Pollen 12/03/2022 Seasonal Food (See Comments) Anaphylaxis High 04/20/2019 Hot peppers (oils) Kiwi Extract Anaphylaxis High 04/20/2019 documented as of this encounter (statuses as of 10/02/2023) Medications Medication Sig Dispensed Refills Start Date [...] Strip 5 02/17/2017 Active Insulin Infusion Pump (MINIMiversity 630G INSULIN PUMP) KITIndications:Type 2 diabetes mellitus with hemoglobin A1c goal of less than 8.0% ([facility]) Use as directed. 0 07/30/2017 Active [...] suspected opioid overdose. Seek immediate medical attention. https://www.youCoupadube .com/watch?v=v26cDa [email or web address] 1 Each 3 11/27/2022 Active [...] A1c goal of less than 8.0% ([facility]),DM type 2, not at goal ([facility]) INJECT UP TO 200 UNITS SUBCUTANEOSULY [...] Oxide 10 % External Cream Apply 1 [place] topically to affected area once. 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 documented as of this encounter (statuses as of 10/02/2023) Resolved Problems Problem Noted Date Diagnosed Date [...] as of this encounter (statuses as of 10/02/2023) Immunizations Name Administration Dates Next Due COVID-19 mRNA, LNP-s, No Pre serve, 2-Dose Series ([email or web address]) 11/08/2020,10/11/2020 HEP A - Hepatitis A (Adult > 18 yrs) 04/11/2011, 09/20/2010 Hepatitis B, 20+ yrs 07/05/2015 Pneumococcal Conjugate Vacci ne, 20-valent ([email or web address]) 03/13/2023 Pneumococcal Polysaccharide PPV23 (Pneumovax) 02/19/2018,03/09/2007 Seasonal [...] Team (Late st Contact Info) Description 10/05/2023 8:00 AM EDT Hospital Encounter ENDO [facility], Endoscopy Room [facility] [address] [place] [phone] Aj Pruett, DO [address] [place] [address] 10/05/2023 8:00 AM EDT - 10/05/2023 9:00 AM EDT Surgery ENDO [facility], Endoscopy Room [facility] [address] [place] [phone] Aj Pruett, DO [address] [place] [address] COLONOSCOPY FLEXIBLE PROXIMAL DIAGNOSTIC 10/05/2023 12:00 PM EDT Telemedicine Psychiatry, [facility] [address] [facility] [place] [address] Rj Mai MD [address] [place] [address] 10/12/2023 2:30 PM EDT Office Visit General Surgery, [facility] [address] [place] [address] Mariano Billingsley MD [address] [place] [address] 11/04/2023 1:30 PM EDT Immunization/Injecti on Hematology/Oncolog y Treatment, [place] [facility] [place] [phone] Nurse, Med 200 [facility] [place] [address] 11/05/2023 1:00 PM EDT Telemedicine Pharmacy, [facility] [address] [facility] 132 [facility] [place] [address] 11/13/2023 9:10 AM EDT Office Visit Pharmacy, [address] [address] [place] [address] [facility], [place] [address] 11/24/2023 9:20 AM EDT Office Visit Sleep Disorders [facility] 132 [facility] [place] [phone] Lakisha Murcia DO 132 [facility] [place] [address] 11/25/2023 2:20 PM EDT Office Visit [facility] 132 [facility] [place] [address] Scott Weldon MD 132 [facility] [place] [address] 02/09/2024 8:00 AM EDT Telemedicine Gastroenterology, [address] [phone] Charlee Fields MD [address] [place] [address] 02/24/2024 2:15 PM EDT Office Visit Hematology/Oncolog y Roney Melendez [place] [address] [place] [phone] Sunil Bourgeois MD [address] [place] [address] 03/16/2024 12:20 PM EDT Office Visit Family Practice [facility] [place] [address] Scott Weldon MD [address] [place] [address] 03/24/2024 12:30 PM EDT Office Visit Ophthalmology, [facility] 132 [facility] [place] [address] Rolan Self, DO [facility] [place] [address] 06/03/2024 10:40 AM EST Office Visit Nephrology, [facility] 200 [facility] [place] [address] Jonathan Mathew MD 200 [facility] [place] [address] Pending Results Name Type Priority Associated Diagnoses Date /Time CBC WITH WBC DIFFERENTIAL Lab Routine Stage 3b chronic kidney disease (HCC) 10/02/2023 1:15 PM EDT RENAL FUNCTION PANEL Lab Routine Stage 3b chronic kidney disease (HCC) 10/02/2023 1:15 PM EDT URINALYSIS WITH MICROSCOPIC EXAM Lab Routine Stage 3b chronic kidney disease (HCC) 10/02/2023 1:15 PM EDT PROTEIN/ CREATININE RATIO, URINE Lab Routine Stage 3b chronic kidney disease (HCC) 10/02/2023 1:15 PM EDT CBC Lab Routine Stage 3b chronic kidney disease (HCC) 10/02/2023 1:15 PM EDT DIFFERENTIAL, AUTOMATED Lab Routine Stage 3b chronic kidney disease (HCC) 10/02/2023 1:15 PM EDT Scheduled Procedures Name Priority Associated Diagnoses Date/Ti me COLONOSCOPY FLEXIBLE PROXIMA L DIAGNOSTIC Colon cancer screening Hematemesis without nausea BRBPR (bright red blood per rectum) 10/05/2023 8:00 AM EDT ESOPHAGOGASTRODUODENOSCOPY ( EGD), FLEXIBLE, TRANSORAL, DIAGNOSTIC Colon cancer screening Hematemesis without nausea BRBPR (bright red blood per rectum) 10/05/2023 8:00 AM EDT Health Maintenance Due Date Last Done Comments COLONOSCOPY-EVERY 5 YRS AGES 18-100 06/27/2020 06/27/2015, [...] 010 09/2022, 06/14/2020, Additional history exists GFR 09/22/2024 09/23/2023, 040 07/2023, 08/27/2023, Additional history exists Pap Smear 09/07/2026 09/08/2023, 1110/2014, 04/12/2015, Additional history exists DTaP,Tdap,and Td Vaccines (3 - Td or Tdap) 08/05/2028 08/05/2018, 05/15/2008 Cervical Cancer Screening 09/07/2028 HPV/Co-Test 09/07/2028 09/08/2023 Influenza Vaccine (FLU shot) Completed 11/2022, 03/01/2021, [...] this encounter Medical Devices Implanted Type Area Business Division Chair Device Identifier Shelf Expiration Date Model / Serial / Lot Neurostimul Intellis Adaptiv - [id number] - [id number] Implanted:Qty: 1 on 08/22/2022 by Rafia Small MD at OR [facility] N/A: Spine Lumbar [employer] 06/21/2023 [id number] / [id number] / Description:battery Medtronic Lead Kit 60 Cm Implanted:Qty: 1 on 08/22/2022 by Rafia Small MD at OR [facility] N/A: Spine Lumbar 02/01/2026 [id number] / / [id number] Medtronic Lead Kit 60cm Implanted:Qty: 1 on 08/22/2022 by Rafia Small MD at OR [facility] N/A: Spine Lumbar 03/21/2026 [id number] / / [id number] Envelope Tyrx Med Antibacteril - [id number] Implanted:Qty: 1 on 08/22/2022 by Rafia Small MD at OR [facility] N/A: Spine Lumbar [employer] 03/10/2023 [id number] / / [id number] documented as of this encounter Visit Diagnoses Diagnosis Stage 3b chronic kidney disease (HCC) DM type 2, not at goal (HCC) Type II or unspecified type diabetes mellitus without mention of complication, not stated as uncontrolled Colon cancer screening Special screening for malignant neoplasms, colon Hematemesis without nausea BRBPR (bright red blood per rectum) Hemorrhage of rectum and anus documented in this encounter Advance Directives Latest [...] the patient have Health Care Power of Roentgenology Teacher? No Code Status History Code Status Date Activated Date Inactivated Comments Full Code 01/21/2011 12:12 PM 01/22/2011 8:48 PM This order reflects the patients wishes and were consensually agreed upon. Question Answer Comments Discussion of Advance Directives occurred with: Patient Does the patient have a Living Will? No Does the patient have Health Care Power of Roentgenology Teacher? No Care Teams Sld Inclusion Teacher Relationship Specialty Start Date End Date Scott Weldon MD [address] [place] [address] PCP - General Family Medicine 08/03/18 documented as of this encounter
--- OUTSIDE RECORDS SUMMARY | 2024-02-02 08:57 | External Medical Summary ---
Author Name Unknown Address Unknown Organization K01:[facility] [place] [facility] [address] [facility] [address] [place] [address] Laboratory Report Ordering Provider Test Date Status LISA MARIE 10/02/2023 13:15:19 Final Observation Date Value Abnormality Reference (Units ) Status BUN 10/02/2023 13:15:19 16 6-20 (mg/dL) Final Creatinine 10/02/2023 13:15:19 1.4 Above high normal 0.5-1.0 (mg/dL) Final Glomerular filtration rate/1.73 sq M.predicted [Volume Rate/Area] in Serum, Plasma or Blood by Creatinine-based formula (CKD-EPI) 10/02/2023 13:15:19 44 Below low normal >=60 (mL/min) Final eGFR is calculated based on the CKD-EPI 2020 equation Sodium 10/02/2023 13:15:19 141 135-146 (m mol/L) Final Potassium 10/02/2023 13:15:19 4.4 3.5-5.1 (m mol/L) Final Cl 10/02/2023 13:15:19 101 98-107 (mm ol/L) Final CO2 10/02/2023 13:15:19 29 22-32 (mmo l/L) Final Anion gap 10/02/2023 13:15:19 11 7-15 (mmol /L) Final Glucose 10/02/2023 13:15:19 159 Above high normal 70 -120 (mg/dL) Final Calcium 10/02/2023 13:15:19 8.7 8.4-10.2 ( mg/dL) Final Albumin 10/02/2023 13:15:19 4.1 3.8-5.0 (g /dL) Final Phosphate 10/02/2023 13:15:19 3.1 2.5-4.8 (m g/dL) Final Performing Location [facility] [place] [facility] [address] [place] [address]
--- OUTSIDE RECORDS SUMMARY | 2024-02-02 08:57 | External Medical Summary | Summary of Care ---
Author Name Unknown Organization [facility] Address [address] [place] [address] Phone [phone] Care Team Providers Care Security Monitor Name Role Phone Scott Weldon MD Primary Care Provider + Encounter Details Date Type Department Care Team (Late st Contact Info) Description 10/05/2023 12:00 PM EDT Telemedicine Psychiatry, [address] [address] Rj Mai MD [address] [place] [address] No Show for psych appt* [...] Strip 5 02/17/2017 Active Insulin Infusion Pump (MINIMKnova Software 630G INSULIN PUMP) KITIndications:Type 2 diabetes mellitus with hemoglobin A1c goal of less than 8.0% ([facility]) Use as directed. 0 07/30/2017 Active [...] goal of less than 8.0% ([facility]),DM type 2, not at goal ([facility]) INJECT UP TO 200 UNITS [...] varices without bleeding, unspecified esophageal varices type ([facility]),Colitis Take 1 Tablet by mouth [...] Oxide 10 % External Cream Apply 1 [place] topically to affected area once. Apply to [...] Overview: Per Obesity Taxonomy Coronary atherosclerosis of cherokee coronary artery 09/15/2008 10/03/2008 Malaise and fatigue [...] mRNA, LNP-s, No Pre serve, 2-Dose Series ([employer]) 11/08/2020,10/11/2020 HEP A - Hepatitis A (Adult > 18 yrs) 04/11/2011, 09/20/2010 Hepatitis B, 20+ yrs 07/05/2015 Pneumococcal Conjugate Vacci ne, 20-valent ([id number]) 03/13/2023 Pneumococcal Polysaccharide PPV23 (Pneumovax) 02/19/2018,03/09/2007 Seasonal [...] Progress Notes * Rj Mai MD - 10/05/2023 12:21 PM EDT Patient failed to keep appointment. documented in this encounter Plan of Treatment Upcoming Encounters Date Type Department Care Team (Late st Contact Info) Description 10/12/2023 2:30 PM EDT Office Visit General Surgery, [facility] [address] [place] [address] Mariano Billingsley MD [address] [place] [address] 11/04/2023 1:30 PM EDT Immunization/Injection Hematology/Oncology Treatment, [place] [address] [place] [phone] Nurse, Med 200 [facility] [place] [address] 11/05/2023 1:00 PM EDT Telemedicine Pharmacy, [facility] [address] [place] [address] [facility] [address] [place] [address] 11/13/2023 9:10 AM EDT Office [address], [address] [address] [address] [address] 11/24/2023 9:20 AM EDT Office Visit [facility] Disorders [facility] 132 [facility] [place] [phone] Lakisha Murcia, 132 [facility] [place] [address] 11/25/2023 2:20 PM EDT Office Visit [facility] [address] [facility] [place] [address] Scott Weldon MD 132 [facility] [place] [address] 02/09/2024 8:00 AM EDT Telemedicine Gastroenterology, [address] [phone] Charlee Fields MD [address] [place], [place] [phone] 02/24/2024 2:15 PM EDT Office Visit [facility]ology[facility] 200 [facility] [place] [phone] Sunil Bourgeois MD 200 [facility] [place] [address] 03/16/2024 12:20 PM EDT Office Visit [facility] [address] [facility] [place] [address] Scott Weldon MD 132 [facility] [place] [address] 03/24/2024 12:30 PM EDT Office Visit Ophthalmology, [facility] 132 [facility] [place] [address] Rolan Self, DO 21 [facility] [place] [address] 06/03/2024 10:40 AM EST Office Visit [facility] [address] [address] Jonathan Mathew MD [address] [address] Scheduled Procedures Name Priority Associated Diagnoses Date/Ti [...] this encounter Medical Devices Implanted Type Area Fire Control Technician G Device Identifier Shelf Expiration Date Model / Serial / Lot Neurostimul Intellis Adaptiv - [id number] - [id number] Implanted:Qty: 1 on 08/22/2022 by Rafia Small MD at OR [facility] N/A: Spine Lumbar [employer] 06/21/2023 [id number] / [id number] / Description:battery Medtronic Lead Kit 60 Cm Implanted:Qty: 1 on 08/22/2022 by Rafia Small MD at OR [facility] N/A: Spine Lumbar 02/01/2026 [id number] / / [id number] Medtronic Lead Kit 60cm Implanted:Qty: 1 on 08/22/2022 by Rafia Small MD at OR [facility] N/A: Spine Lumbar 03/21/2026 [id number] / / [id number] Envelope Tyrx Med Antibacteril - [id number] Implanted:Qty: 1 on 08/22/2022 by Rafia Small MD at OR [facility] N/A: Spine Lumbar [employer] 03/10/2023 [id number] / / [id number] Hemostatic Clip Res 235cm - [id number] Implanted:Qty: 4 on 10/05/2023 by Aj Pruett, DO at ENDOSCOPY [facility] ENDOSCOPY 02/03/2026 [id number] / / Hemostatic Clip Res 235cm - [id number] Implanted:Qty: 1 on 10/05/2023 by Aj Pruett, DO at END[facility]COPY [facility] : ENDOSCOPY 02/02/2026 [id number] / / documented as of this encounter Visit Diagnoses Diagnosis No Show for psych appt- Primary documented in this encounter Advance Directives [...] the patient have Health Care Power of Orange Picking Supervisor? No Code Status History Code Status Date Activated Date Inactivated Comments Full Code 01/21/2011 12:12 PM 01/22/2011 8:48 PM This order reflects the patients wishes and were consensually agreed upon. Question Answer Comments Discussion of Advance Directives occurred with: Patient Does the patient have a Living Will? No Does the patient have Health Care Power of Orange Picking Supervisor? No Care Teams Security Monitor Relationship Specialty Start Date End Date Scott Weldon MD 132 [facility] [place] [address] PCP - General Family Medicine 08/03/18 documented as of this encounter
--- OUTSIDE RECORDS SUMMARY | 2024-02-02 08:57 | External Medical Summary ---
Author Name Unknown Address Unknown Organization K01:[facility] [place] [address] [facility] [place] [address] Laboratory Report Ordering Provider Test Date Status LISA MARIE 10/02/2023 13:15:19 Final Observation Date Value Abnormality Reference (Units ) Status SYNC LEUKOCYTES IN BLOOD BY AUTOMATED COUNT 10/02/2023 13:15:19 7.09 4.00-10.80 (K/uL) Final Segs 10/02/2023 13:15:19 70.6 40.0-75.0 (%) Final Lymphs % 10/02/2023 13:15:19 19.6 18.0-42.0 (%) Final Monos 10/02/2023 13:15:19 6.8 1.0-11.0 (%) Final Eosinophils 10/02/2023 13:15:19 2.1 0.0-6.0 (%) Final Basos 10/02/2023 13:15:19 0.6 0.0-2.0 (%) Final Immature Granulocyte, Percent 10/02/2023 13:15:19 0.3 0.0-2.0 (%) Final Absolute Segs 10/02/2023 13:15:19 5.01 1.80-7.70 (K/uL) Final Lymphs, absolute 10/02/2023 13:15:19 1.39 1.00-4.80 (K/ul) Final Monos, Abs 10/02/2023 13:15:19 0.48 0.00-1.10 (K/uL) Final Eos, Abs 10/02/2023 13:15:19 0.15 0.00-0.70 (K/uL) Final Basos, Abs 10/02/2023 13:15:19 0.04 0.00-0.20 (K/uL) Final Immature Granulocytes, Number 10/02/2023 13:15:19 0.02 0.00-0.20 (K/uL) Final Performing Location [facility] [place] [facility] [place] [address]
--- OUTSIDE RECORDS SUMMARY | 2024-02-02 08:57 | External Medical Summary ---
Author Name Unknown Address Unknown Organization K01:[facility] [place] [address] [facility] [address] Laboratory Report Ordering Provider Test Date Status LISA MARIE 10/02/2023 13:15:19 Final Observation Date Value Abnormality Reference (Units ) Status Color of Urine by Auto 10/02/2023 13:15:19 Colorless Colorless, Light Yellow, Yellow, Dark Yellow Final Clarity, Urine 10/02/2023 13:15:19 Clear Clear Final Glucose [Mass/volume] in Urine by Automated test strip 10/02/2023 13:15:19 >=1000 Abnormal Negative (mg/dL) Final Bilirubin.total [Presence] in Urine by Automated test strip 10/02/2023 13:15:19 Negative Negative Final Ketones [Mass/volume] in Urine by Automated test strip 10/02/2023 13:15:19 Negative Negative (mg/dL) Final Specific gravity, Urine 10/02/2023 13:15:19 1.008 1.003-1.030 Final Hemoglobin [Presence] in Urine by Automated test strip 10/02/2023 13:15:19 Negative Negative Final pH, Urine 10/02/2023 13:15:19 5.5 5.0-7.5 (Units) Final Protein [Mass/volume] in Urine by Automated test strip 10/02/2023 13:15:19 Negative Negative (mg/dL) Final Urobilinogen [Mass/volume] in Urine by Automated test strip 10/02/2023 13:15:19 Normal Normal (mg/dL) Final Nitrite [Presence] in Urine by Automated test strip 10/02/2023 13:15:19 Negative Negative Final Leukocyte esterase [Presence] in Urine by Automated test strip 10/02/2023 13:15:19 Negative Negative Final RBC, Urine 10/02/2023 13:15:19 0-2 0-2 (/HPF) Final WBC, Urine 10/02/2023 13:15:19 0-2 0-2 (/HPF) Final Bacteria [#/area] in Urine sediment by Microscopy high power field 10/02/2023 13:15:19 0-25 0-25 (/HPF) Final Hyaline casts, Urine 10/02/2023 13:15:19 1-4 Abnormal None (/LPF) Final Performing Location [facility] [place] [facility] [address] [facility] [address]
--- OUTSIDE RECORDS SUMMARY | 2024-02-02 08:57 | External Medical Summary | Summary of Care ---
Author Name Unknown Organization [facility] Address [address] [facility] [address] Phone [phone] Care Team Providers Care Corporate Administrator Name Role Phone Scott Weldon MD Primary Care Provider + Reason for Visit * Reason Onset Date Comments Advice 10/05/2023 Encounter Details Date Type Department Care Team (Late st Contact Info) Description 10/05/2023 Telephone NephrologyRoney [address] [place] [address] Jonathan Mathew MD 200 [facility] [place] [address] Advice Allergies Active Allergy Reactions Criticality Noted [...] Strip 5 02/17/2017 Active Insulin Infusion Pump (MINIMSetMeUp 630G INSULIN PUMP) KITIndications:Type 2 diabetes mellitus [...] Oxide 10 % External Cream Apply 1 [place] topically to affected area once. Apply to [...] Overview: Per Obesity Taxonomy Coronary atherosclerosis of [place] coronary artery 09/15/2008 10/03/2008 Malaise and fatigue [...] mRNA, LNP-s, No Pre serve, 2-Dose Series (UroSens) 11/08/2020,10/11/2020 HEP A - Hepatitis A (Adult > 18 yrs) 04/11/2011, 09/20/2010 Hepatitis B, 20+ yrs 07/05/2015 Pneumococcal Conjugate Vacci ne, 20-valent ([id number]) 03/13/2023 Pneumococcal Polysaccharide PPV23 (Pneumovax) 02/19/2018,03/09/2007 Seasonal [...] Pt called back to talk about meds [phone] * Telephone Encounter - Zora Nunn LPN [...] 10/08/2023 11:00 AM EDT Nurse Only Nephrology, [facility] 200 [facility] [place] [address] Sp, Nurse Nephrology 200 [facility] [place] [address] 10/12/2023 2:30 PM EDT Office Visit General Surgery, [facility] [address] [place] [address] Mariano Billingsley MD [address] [place] [address] 11/04/2023 1:30 PM EDT Immunization/Injection Hematology/Oncology Treatment, [place] [facility] [phone] Nurse, Med 4 200 [facility] [place] [address] 11/05/2023 1:00 PM EDT Telemedicine Pharmacy, [facility] 132 [facility] [place] [address] [facility] [place] [address] 11/13/2023 9:10 AM EDT Office [address] [place] [address] 11/24/2023 9:20 AM EDT Office Visit Sleep Disorders Ctr [facility] 132 [facility] [place] [phone] Lakisha Murcia, [address] [place] [address] 11/25/2023 2:20 PM EDT Office Visit [facility] [address] [place] [address] Scott Weldon MD 132 [facility] [place] [address] 02/09/2024 8:00 AM EDT Telemedicine Gastroenterology, [address] [address] Charlee Fields MD [address] [place], [place] [id number] 02/24/2024 2:15 PM EDT Office Visit Hematology/Oncology [facility] 200 [facility] [phone] Sunil Bourgeois MD 200 [facility] [place] [address] 03/16/2024 12:20 PM EDT Office Visit [facility] [address] [place] [address] Scott Weldon MD 132 [facility] [place] [address] 03/24/2024 12:30 PM EDT Office Visit Ophthalmology, [facility] [place] [address] Rolan Self, DO [address] [facility] [place] [address] 06/03/2024 10:40 AM EST Office Visit Nephrology, [facility] [address] [address] Jonathan Mathew MD [facility] [place] [address] Scheduled Procedures Name Priority Associated Diagnoses Date/Ti [...] 12/14/2019, Additional history exists COVID-19 Vaccine ( - season) 2023 11/08/2020, 10/11/2020 Zoster Vaccines [...] this encounter Medical Devices Implanted Type Area Winch Truck Operator Device Identifier Shelf Expiration Date Model / Serial / Lot Neurostimul Intellis Adaptiv - [id number] - [id number] Implanted:Qty: 1 on 08/22/2022 by Rafia Small MD at OR [facility] N/A: Spine Lumbar [employer] 06/21/2023 [id number] / [id number] / Description:battery Medtronic Lead Kit 60 Cm Implanted:Qty: 1 on 08/22/2022 by Rafia Small MD at OR [facility] N/A: Spine Lumbar 02/01/2026 [id number] / / [id number] Medtronic Lead Kit 60cm Implanted:Qty: 1 on 08/22/2022 by Rafia Small MD at OR [facility] N/A: Spine Lumbar 03/21/2026 [id number] / / [id number] Envelope Tyrx Med Antibacteril - [id number] Implanted:Qty: 1 on 08/22/2022 by Rafia Small MD at OR [facility] N/A: Spine Lumbar [employer] 03/10/2023 [id number] / / [id number] Hemostatic Clip Res 235cm - [id number] Implanted:Qty: 4 on 10/05/2023 by Aj Pruett, DO at [facility] : ENDOSCOPY 02/03/2026 [id number] / / Hemostatic Clip Res 235cm - [id number] Implanted:Qty: 1 on 10/05/2023 by Aj Pruett, DO at ENDOSCOPY [facility] : ENDOSCOPY 02/02/2026 [id number] / / documented as of this encounter [...] the patient have Health Care Power of Metal Work Duct Installer? No Code Status History Code Status Date Activated Date Inactivated Comments Full Code 01/21/2011 12:12 PM 01/22/2011 8:48 PM This order reflects the patients wishes and were consensually agreed upon. Question Answer Comments Discussion of Advance Directives occurred with: Patient Does the patient have a Living Will? No Does the patient have Health Care Power of Metal Work Duct Installer? No Care Teams Corporate Administrator Relationship Specialty Start Date End Date Scott Weldon MD 132 [facility] [place] [address] PCP - General Family Medicine 08/03/18 documented as of this encounter
--- OUTSIDE RECORDS SUMMARY | 2024-02-02 08:58 | External Medical Summary | Summary of Care ---
Author Name Unknown Organization [facility] Address [address] [place] [address] Phone [phone] Care Team Providers Care Hide Worker Name Role Phone Scott Weldon MD Primary Care Provider + Reason for Visit * Reason Onset Date Comments Medication Refill 09/28/2023 Encounter Details Date Type Department Care Team (Late st Contact Info) Description 09/28/2023 Refill Psychiatry, [address] [address] Kandace Avina MD [address] [place] [address] Allergies Active Allergy Reactions Criticality Noted Date Comments Naproxen Sodium Bleeding High 11/29/2013 Pollen 12/03/2022 Seasonal Food (See Comments) Anaphylaxis High 04/20/2019 Hot peppers (oils) Kiwi Extract Anaphylaxis High 04/20/2019 documented as of this encounter (statuses as of 09/28/2023) Medications Medication Sig Dispensed Refills Start Date [...] [facility]) Use as directed. 0 8 Active CPAP [...] suspected opioid overdose. Seek immediate medical attention. [email or web address]?[email or web address] 1 Each 3 3 Active Atenolol 100 [...] 2 mg weekly E11.9 0 4 Active Ondansetron 8 MG Oral [...] the morning. 90 Tablet 3 4 Active hydrOXYzine HCl 25 MG Oral Tablet Take 1 tab during the day every 4-6 hours as needed for anxiety and take 2 tabs at bedtime as needed for anxiety 120 Tablet 1 4 Active Atorvastatin Calcium 40 MG Oral Tablet (Lipitor)Indication s:Dyslipidemia, goal LDL below 100 TAKE 1 TABLET BY MOUTH EVERY DAY IN THE MORNING 90 Tablet 3 4 Active Albuterol Sulfate HFA 108 (90 [...] mouth at bedtime. 30 Tablet 1 4 09/28/19 24 Discontinu ed(Refill) documented as of this encounter (statuses as of 09/28/2023) Active Problems Problem Noted Date Diagnosed Date [...] as of this encounter (statuses as of 09/28/2023) Resolved Problems Problem Noted Date Diagnosed Date [...] atherosclerosis of [place] coronary artery 09/15/2008 10/03/2008 Malaise and [...] as of this encounter (statuses as of 09/28/2023) Immunizations Name Administration Dates Next Due COVID-19 mRNA, LNP-s, No Pre serve, 2-Dose Series ([employer]) 11/08/2020,10/11/2020 HEP A - Hepatitis A (Adult > 18 yrs) 04/11/2011, 09/20/2010 Hepatitis B, 20+ yrs 07/05/2015 Pneumococcal Conjugate Vacci ne, 20-valent ([id number]) 03/13/2023 Pneumococcal Polysaccharide PPV23 (Pneumovax) 02/19/2018,03/09/2007 Seasonal [...] Telephone Encounter - Kandace Avina MD - 09/28/2023 12:26 PM EDT Signed Prescriptions: Disp Refills Eszopiclone 2 MG Oral Tablet (Lunesta) 30 Tab*1 Sig: Take 1 Tablet by mouth at bedtime.Authorizing Provider: KANDACE AVINA * Telephone Encounter - Prisca Orona MED ASSIST - 09/28/2023 12:04 PM EDTPending Prescriptions: Disp Refills Eszopiclone 2 MG Oral Tablet (Lunesta) 30 Tab*1 Sig: Take 1 Tablet by mouth at bedtime. * Telephone Encounter - Prisca Orona MED ASSIST - 09/28/2023 12:03 PM EDT Refill request from patient (MyG) for Lunesta 2mg. Medication last filled on 07/29/23 with 1 refills. Patient last seen on 08/25/23 with return appointment scheduled for 10/05/23. Patient had 0 cancelled appointments and 0 NO SHOW appointments. documented in this encounter Plan of Treatment Upcoming Encounters Date Type Department Care Team (Late st Contact Info) Description 09/30/2023 9:00 AM EDT Office Visit Pharmacy, [address] [place] [phone] [place], [facility] [address] [place] [facility] [place] [address] 10/05/2023 8:00 AM EDT Hospital Encounter ENDO [facility], Endoscopy Room [facility] [address] [place], [place] [phone] Aj Pruett, DO [address] [place], [place] [address] 10/05/2023 8:00 AM EDT - 10/05/2023 9:00 AM EDT Surgery ENDO [facility], Endoscopy Room [facility] [address] [place] [phone] Aj Pruett, DO [address] [place] [address] COLONOSCOPY [facility] 10/05/2023 12:00 PM EDT Telemedicine Psychiatry, [facility] [address] [facility] [place] [address] Kandace Avina MD [address] [place] [address] 10/12/2023 2:30 PM EDT Office Visit General Surgery, [facility] 132 [facility] [place] [address] Mariano Billingsley MD [address] [place] [address] 11/04/2023 1:30 PM EDT Immunization/Injecti on Hematology/Oncolog y Treatment, [place] [address] [facility] [address] [place] [phone] Nurse, Med [address] [facility] [place] [address] 11/05/2023 1:00 PM EDT Telemedicine Pharmacy, [facility] 132 [facility] [place] [address] [facility] [address] [place] [address] 11/24/2023 9:20 AM EDT Office Visit [facility] Disorders C[facility] [address] [place] [phone] Lakisha Murcia DO [address] [place] [address] 11/25/2023 2:20 PM EDT Office Visit [facility] [address] [place] [address] Scott Weldon MD [address] [place] [address] 02/09/2024 8:00 AM EDT Telemedicine Gastroenterology, [address] [address] Charlee Fields MD [address] [place] [address] 02/24/2024 2:15 PM EDT Office Visit Hematology/Oncolog y [facility] [address] [place] [phone] Sunil Bourgeois MD [address] [place] [address] 03/16/2024 12:20 PM EDT Office Visit [facility] [address] [place] [address] Scott Weldon MD [address] [place] [address] 03/24/2024 12:30 PM EDT Office Visit Ophthalmology, [facility] [address] [place] [address] Rolan Self, DO [address] [place] [address] 06/03/2024 10:40 AM EST Office Visit Nephrology, [place] [address] [facility] [place] [address] Jonathan Mathew MD [address] [place] [address] Scheduled Procedures Name Priority Associated Diagnoses Date/Ti [...] ( - 2022- season) 2023 11/08/2020, 10/11/2020 Zoster Vaccines (2 of 2) 06/14/2023 04/19/2023 HbA1c 01/21/2024 07/23/2023, 02/06, 06/11/2022, Additional history exists Diabetic Foot Exam 03/13/2024 03/13/2023, 0 10/03/2021, 11/07/2019, Additional history exists Albumin/Creatinine Ratio 07/23/2024 024, 04/06/2023, 03/11/2022, Additional history exists Mammogram 09/01/2024 09/02/2023, 04/10, 01/21/2016 B-12 09/07/2024 09/08/2023, 01/0 09/2022, 06/14/2020, Additional history exists GFR 09/22/2024 09/23/2023, 07/2023, 08/27/2023, Additional history exists Pap Smear [...] this encounter Medical Devices Implanted Type Area Education Consultant Device Identifier Shelf Expiration Date Model / Serial / Lot Neurostimul Intellis Adaptiv - [id number] - [id number] Implanted:Qty: 1 on 08/22/2022 by Rafia Small MD at OR [facility] N/A: Spine Lumbar [employer] 06/21/2023 [id number] / [id number] / Description:battery Medtronic Lead Kit 60 Cm Implanted:Qty: 1 on 08/22/2022 by Rafia Small MD at OR [facility] N/A: Spine Lumbar 02/01/2026 [id number] / / [id number] Medtronic Lead Kit 60cm Implanted:Qty: 1 on 08/22/2022 by Rafia Small MD at OR [facility] N/A: Spine Lumbar 03/21/2026 [id number] / / [id number] Envelope Tyrx Med Antibacteril - [id number] Implanted:Qty: 1 on 08/22/2022 by Rafia Small MD at OR [facility] N/A: Spine Lumbar [employer] 03/10/2023 [id number] / / [id number] documented as of this encounter Advance Directives [...] the patient have Health Care Power of Cattle Broker? No Code Status History Code Status Date Activated Date Inactivated Comments Full Code 01/21/2011 12:12 PM 01/22/2011 8:48 PM This order reflects the patients wishes and were consensually agreed upon. Question Answer Comments Discussion of Advance Directives occurred with: Patient Does the patient have a Living Will? No Does the patient have Health Care Power of Cattle Broker? No Care Teams Hide Worker Relationship Specialty Start Date End Date Scott Weldon MD 132 [facility] [place] [address] PCP - General Family Medicine 08/03/18 documented as of this encounter
--- OUTSIDE RECORDS SUMMARY | 2024-02-02 08:58 | External Medical Summary | Summary of Care ---
Author Name Unknown Organization [facility] Address [address] [facility] [place] [address] Phone [phone] Care Team Providers Care Machine Etcher Name Role Phone Scott Weldon MD Primary Care Provider + Reason for Visit * Reason Comments Dosage Adjustment In Person (Anticoag Cl inic) Diabetes Follow-Up Insulin Pump Encounter Details Date Type Department Care Team (Late st Contact Info) Description 09/30/2023 9:00 AM EDT Office Visit Pharmacy, [place] [address] [place] [address] [facility] [address] [place] [address] Type 2 diabetes mellitus with hemoglobin A1c goal of less than 8.0% ([facility])* Allergies Active Allergy Reactions Criticality Noted Date Comments Naproxen Sodium Bleeding High 11/29/2013 Pollen 12/03/2022 Seasonal Food (See Comments) Anaphylaxis High 04/20/2019 Hot peppers (oils) Kiwi Extract Anaphylaxis High 04/20/2019 documented as of this encounter (statuses as of 09/30/2023) Medications Medication Sig Dispensed Refills Start Date End Date Status ONETOUCH ULTRASOFT LANCETS MISCIndications:DM type 2, not at goal ([facility]) check FS 6 times daily [...] Strip 5 02/17/2017 Active Insulin Infusion Pump ([email or web address] 630G INSULIN PUMP) KITIndications:Type 2 diabetes mellitus with hemoglobin A1c goal of less than 8.0% ([facility]) Use as directed. 0 07/30/2017 [...] goal ([facility]) INJECT UP TO 200 UNITS [...] MG/DOSE)) Take 2 mg weekly E11.9 0 08/06/2023 Active Ondansetron 8 MG Oral [...] varices without bleeding, unspecified esophageal varices type ([facility]),Colitis Take 1 Tablet by mouth [...] THE MORNING 90 Tablet 3 09/14/2023 Active Albuterol Sulfate HFA 108 (90 Base) [...] a week. 4 Patch 0 09/23/2023 Active Eszopiclone 2 MG Oral Tablet (Lunesta) Take 1 Tablet by mouth at bedtime. 30 Tablet 1 09/28/2023 Active documented as of this encounter (statuses as of 09/30/2023) Active Problems Problem Noted Date Diagnosed Date [...] as of this encounter (statuses as of 09/30/2023) Resolved Problems Problem Noted Date Diagnosed Date [...] Overview: Per Obesity Taxonomy Coronary atherosclerosis of [place] coronary artery 09/15/2008 10/03/2008 Malaise and fatigue [...] as of this encounter (statuses as of 09/30/2023) Immunizations Name Administration Dates Next Due COVID-19 mRNA, LNP-s, No Pre serve, 2-Dose Series ([email or web address]) 11/08/2020,10/11/2020 HEP A - Hepatitis A (Adult > 18 yrs) 04/11/2011, 09/20/2010 Hepatitis B, 20+ yrs 07/05/2015 Pneumococcal Conjugate Vacci ne, 20-valent ([email or web address]) 03/13/2023 Pneumococcal Polysaccharide PPV23 (Pneumovax) 02/19/2018,03/09/2007 Seasonal [...] Progress Notes * Danielle Anderson, [facility] - 09/30/2023 9:00 AM EDT Images from the original note were not included. Medication Therapy Disease Management [facility] - Diabetes Management Progress Note Carmen Tyson, identified by name and date of , is a 53 year old female being seen for diabetes management/education. Patient presents for return diabetic visit. And insulin pump download DIABETES: Current diabetic medications: HOLD Metformin 1000mg once a day Ozempic 2 mg once weekly Jardiance 10 mg once daily- started 09/07/23, ON HOLD since 09/24/23 WeOrder LTDG - [employer] ([id number]) Infusion Set: Quick Set Insulin: Novolin R Basal Rate (both segments decreased) 12a-8a 3.00 u/hr 8a-12a 5.00 u/hr Bolus: hardly using (was 15 units [...] % 5.8* 5.7* 8.6* Recent Labs Units 09/23/23 1427 09/08/23 1509 08/27/23 0953 ESTIMATED GLOMERULAR FILTRATION RATE - [facility] mL/min 28* 41* 45* CREATININE - [facility] mg/dL 2.1* 1.53* 1.4* HYPERTENSION: Patient on ACEi/ARB: currently on hold due to kidney function BP Readings from Last 3 Encounters: 09/16/23 106/62 09/08/23 104/72 08/20/23 98/60 Blood pressure at goal: yes HYPERLIPIDEMIA: Patient is taking moderate or high intensity statin: yes HEALTH MAINTENANCE REVIEW: Health Maintenance Due Topic Date Due COLONOSCOPY-EVERY 5 YRS AGES 18-100 06/27/2020 Diabetic Eye Exam 01/16/2023 COVID-19 Vaccine ( season) 2023 Zoster Vaccines (2 of 2) 06/14/2023 ASSESSMENT & PLAN: ICD-10-CM 1. Type 2 diabetes mellitus with hemoglobin A1c goal of less than 8.0% ([facility]) E11.9 Considerations: - activity limited by chronic low back pain - obtaining ozempic and novolin R via PAP - prefers to use local pharmacy instead of O - RENAL function Glycemic control is unstable, trending low Patient agreeable to adjust medications as noted below. Basal settings decreased as glucose is falling overnight and between meals. ICR/fixed dose and ISF continued- patient hardly using this function of the pump. Hopeful to be able to change patient to just basal insulin injection and get her off the pump. Talked with patient that if she gets as low as 60 units daily on the pump, we will plan to transition her to basal insulin injections. Jardiance and metformin currently on hold due to kidney function results. Patient to have them repeated in a few days. 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 Unlikely for MTM to have patient restart metformin at this time. MEDICATION CHANGES: yes, see below; preferred pharmacy: [facility] Diabetic Medications: HOLD Metformin 1000mg once a day Ozempic 2 mg once weekly HOLD Jardiance 10 mg once daily- started 09/07/23, Dc'd 09/24/23 eGFR 28 mL/min as of 09/23/23 MedBioDigitalG - [employer] ([id number]) Infusion Set: Quick Set Insulin: Novolin R [...] UP: Return to clinic in 6 weeks Visit date not found Danielle Anderson RPh Clinical Pharmacist - [employer] Mill Lab Technician Medication Therapy Management [facility] 09/30/2023, 9:00 AM documented in this encounter Plan of Treatment Upcoming Encounters Date Type Department Care Team (Late st Contact Info) Description 10/05/2023 8:00 AM EDT Hospital Encounter ENDO [facility], Endoscopy Room [facility] [address] [place], [place] [phone] Aj Pruett, DO [address] [place] [address] 10/05/2023 8:00 AM EDT - 10/05/2023 9:00 AM EDT Surgery ENDO [facility], Endoscopy Room [facility] [address] [place] [phone] Aj Pruett, DO [address] [place] [address] COLONOSCOPY FLEXIBLE PROXIMAL DIAGNOSTIC 10/05/2023 12:00 PM EDT Telemedicine Psychiatry, [facility] [address] [facility] [place] [address] Rj Mai MD [address] [place] [address] 10/12/2023 2:30 PM EDT Office Visit General [facility], [facility] [place] [address] Mariano Billingsley MD [address] [place] [address] 11/04/2023 1:30 PM EDT Immunization/Injecti on Hematology/Oncolog y Treatment, [place] [facility] [phone] Nurse, Med [address] [facility] [place] [address] 11/05/2023 1:00 PM EDT Telemedicine Pharmacy, [facility] [address] [place] [address] [facility] [place] [address] 11/13/2023 9:10 AM EDT Office Visit Pharmacy, [place] [address] [place] [address] [place], [facility] [address] [place] [address] 11/24/2023 9:20 AM EDT Office Visit Sleep Disorders Ctr [facility] 132 [facility] [place] [address] Lakisha Murcia DO [address] [place] [address] 11/25/2023 2:20 PM EDT Office Visit [facility] [address] [facility] [place] [address] Scott Weldon MD 132 [facility] [place] [address] 02/09/2024 8:00 AM EDT Telemedicine Gastroenterology, [address] [address] Charlee Fields MD [address] [place] [address] 02/24/2024 2:15 PM EDT Office Visit Hematology/Oncolog y [facility] [place] [address] [place] [phone] Sunil Bourgeois MD [address] [place] [address] 03/16/2024 12:20 PM EDT Office Visit [facility] [place] [address] Scott Weldon MD 132 [facility] [place] [address] 03/24/2024 12:30 PM EDT Office Visit Ophthalmology, [facility] [address] [place] [address] Rolan Self, DO [address] [place] [address] 06/03/2024 10:40 AM EST Office Visit Nephrology, [facility] [address] [place] [address] Jonathan Mathew MD [address] [facility] [place] [address] Scheduled Procedures Name Priority Associated Diagnoses Date/Ti [...] 09/08/2023, 09/2022, 06/14/2020, Additional history exists GFR 09/22/2024 [...] this encounter Medical Devices Implanted Type Area Wharf Labourer Device Identifier Shelf Expiration Date Model / Serial / Lot Neurostimul Intellis Adaptiv - [id number] - [id number] Implanted:Qty: 1 on 08/22/2022 by Rafia Small MD at OR [facility] N/A: Spine Lumbar [employer] 06/21/2023 [id number] / [id number] / Description:battery Medtronic Lead Kit 60 Cm Implanted:Qty: 1 on 08/22/2022 by Rafia Small MD at OR [facility] N/A: Spine Lumbar 02/01/2026 [id number] / / [id number] Medtronic Lead Kit 60cm Implanted:Qty: 1 on 08/22/2022 by Rafia Small MD at OR [facility] N/A: Spine Lumbar 03/21/2026 [id number] / / [id number] Envelope Tyrx Med Antibacteril - [id number] Implanted:Qty: 1 on 08/22/2022 by Rafia Small MD at OR [facility] N/A: Spine Lumbar [employer] 03/10/2023 [id number] / / [id number] documented as of this encounter Visit Diagnoses Diagnosis Type 2 diabetes mellitus with hemoglobin A1c goal of less than 8.0% (HCC)- Primary Colon cancer screening Special screening for malignant [...] the patient have Health Care Power of Exterior Door Installer? No Code Status History Code Status Date Activated Date Inactivated Comments Full Code 01/21/2011 12:12 PM 01/22/2011 8:48 PM This order reflects the patients wishes and were consensually agreed upon. Question Answer Comments Discussion of Advance Directives occurred with: Patient Does the patient have a Living Will? No Does the patient have Health Care Power of Exterior Door Installer? No Care Teams Machine Etcher Relationship Specialty Start Date End Date Scott Weldon MD [address] [place] [address] PCP - General Family Medicine 08/03/18 documented as of this encounter
--- OUTSIDE RECORDS SUMMARY | 2024-02-02 08:58 | External Medical Summary ---
Author Name Unknown Address Unknown Organization K01:[facility] [place] [facility] [address] [place] [address] Laboratory Report Ordering Provider Test Date Status LISA MARIE 10/02/2023 13:15:19 Final Observation Date Value Abnormality Reference (Units ) Status WBC, Total 10/02/2023 13:15:19 7.09 4.00-10.80 (K/uL) Final RBC 10/02/2023 13:15:19 4.18 3.85-5.15 (M/uL) Final Hemoglobin 10/02/2023 13:15:19 11.8 Below low normal 12.0-15.3 (g/dL) Final HCT 10/02/2023 13:15:19 38.6 36.0-45.2 (%) Final MCV 10/02/2023 13:15:19 92.3 81.5-97.5 (fL) Final MCH 10/02/2023 13:15:19 28.2 27.0-34.0 (pg) Final MCHC 10/02/2023 13:15:19 30.6 32.0-36.0 (g/dL) Final RDW 10/02/2023 13:15:19 15.4 11.5-15.5 (%) Final Platelets 10/02/2023 13:15:19 99 Below low normal 140-400 (K/uL) Final MPV 10/02/2023 13:15:19 10.7 6.6-11.1 (fL) Final Nucleated erythrocytes/100 leukocytes [Ratio] in Blood by Automated count 10/02/2023 13:15:19 0 <=0 (/100 WBCs) Final Performing Location [facility] [place] [facility] [address] [place] [address]
--- OUTSIDE RECORDS SUMMARY | 2024-02-02 08:58 | External Medical Summary | Summary of Care ---
Author Name Unknown Organization [facility] Address [address] [facility] [place] [address] Phone [phone] Care Team Providers Care Fios Line Installer Name Role Phone Scott Weldon MD Primary Care Provider + Encounter Details Date Type Department Care Team (Late st Contact Info) Description 09/26/2023 Orders Only PATIENT PORTAL DO NOT DELETE THIS DEPT USED BY [place]END [id number] Allergies Active Allergy Reactions Criticality Noted Date Comments Naproxen Sodium Bleeding High 11/29/2013 Pollen 12/03/2022 Seasonal Food (See Comments) Anaphylaxis High 04/20/2019 Hot peppers (oils) Kiwi Extract Anaphylaxis High 04/20/2019 documented as of this encounter (statuses as of 09/26/2023) Medications Medication Sig Dispensed Refills Start Date [...] Strip 5 02/17/2017 Active Insulin Infusion Pump (MINIM[employer]ITY Mobile 630G INSULIN PUMP) KITIndications:Type 2 diabetes mellitus with hemoglobin A1c goal of less than 8.0% ([facility]) Use as directed. 0 07/30/2017 Active CPAP [...] suspected opioid overdose. Seek immediate medical attention. [email or web address]?v=[email or web address] 1 Each 3 11/27/2022 Active [...] 8.0% (HCC),DM type 2, not at goal ([facility]) INJECT UP TO 200 UNITS SUBCUTANEOSULY ONCE DAILY VIA PUMP 60 mL 0 05/05/2023 Active Pregabalin 100 MG Oral Capsule (Lyrica)Indications :Bilateral low back pain with sciatica, sciatica laterality unspecified, unspecified chronicity TAKE 1 CAPSULE BY MOUTH EVERY DAY IN THE MORNING , AT NOON, AND BEFORE BEDTIME 270 Capsule 1 06/05/2023 Active Eszopiclone 2 MG Oral Tablet (Lunesta) Take 1 Tablet by mouth at bedtime. 30 Tablet 1 07/29/2023 Active traZODone HCl 100 MG Oral Tablet [...] a week. 4 Patch 0 09/23/2023 Active documented as of this encounter (statuses as of 09/26/2023) Active Problems Problem Noted Date Diagnosed Date [...] as of this encounter (statuses as of 09/26/2023) Resolved Problems Problem Noted Date Diagnosed Date [...] as of this encounter (statuses as of 09/26/2023) Immunizations Name Administration Dates Next Due COVID-19 mRNA, LNP-s, No Pre serve, 2-Dose Series (NanoPotential) 11/08/2020,10/11/2020 HEP A - Hepatitis A (Adult > 18 yrs) 04/11/2011, 09/20/2010 Hepatitis B, 20+ yrs 07/05/2015 Pneumococcal Conjugate Vacci ne, 20-valent ([id number]) 03/13/2023 Pneumococcal Polysaccharide PPV23 (Pneumovax) 02/19/2018,03/09/2007 Seasonal [...] 09/30/2023 9:00 AM EDT Office Visit Pharmacy, [facility] [address] [place] [address] [facility] [address] [place] [address] 10/05/2023 8:00 AM EDT Hospital Encounter [facility], Endoscopy Room [facility] [address] [facility] [place] [address] Aj Pruett, DO [address] [place] [address] 10/05/2023 8:00 AM EDT - 10/05/2023 9:00 AM EDT Surgery ENDO [facility], Endoscopy Room [facility] [address] [place] [phone] Aj Pruett, DO [address] [place] [address] COLONOSCOPY FLEXIBLE PROXIMAL DIAGNOSTIC 10/05/2023 12:00 PM EDT Telemedicine Psychiatry, [facility] 200 [facility] [place] [address] Rj Mai MD [address] [place] [address] 10/12/2023 2:30 PM EDT Office Visit General Surgery, [facility] [address] [place] [address] Mariano Billingsley MD [address] [place] [address] 11/04/2023 1:30 PM EDT Immunization/Injecti on Hematology/Oncolog y Treatment, [place] 200 [facility] [place] [phone] Nurse, Med [address] [facility] [place] [address] 11/05/2023 1:00 PM EDT Telemedicine Pharmacy, [facility] [address] [place] [address] [facility] Sue Hearnil [place] [address] 11/24/2023 9:20 AM EDT Office Visit Sleep Disorders Ctr Keith Rose, [place] [address] [place] [phone] Lakisha Murcia, DO 132 [facility] [place] [address] 11/25/2023 2:20 PM EDT Office Visit [facility] 132 [facility] [place] [address] Scott Weldon MD 132 [facility] [place] [address] 02/09/2024 8:00 AM EDT Telemedicine Gastroenterology, [address] [address] Charlee Fields MD [address] [place] [address] 02/24/2024 2:15 PM EDT Office Visit Hematology/Oncolog y [facility] [address] [place] [address] Sunil Bourgeois MD [address] [place] [address] 03/16/2024 12:20 PM EDT Office Visit [facility] [address] [facility] [place] [address] Scott Weldon MD 132 [facility] [place] [address] 03/24/2024 12:30 PM EDT Office Visit Ophthalmology, [facility] 132 [facility] [place] [address] Rolan Self, DO [address] [facility] [place] [address] 06/03/2024 10:40 AM EST Office Visit Nephrology, [facility] [address] [address] Jonathan Mathew MD [address] [place], [place] [address] Scheduled Procedures Name Priority Associated Diagnoses Date/Ti [...] encounter Medical Devices Implanted Type Area Fire Alarm Dispatcher Device Identifier Shelf Expiration Date Model / Serial / Lot Neurostimul Intellis Adaptiv - [id number] - [id number] Implanted:Qty: 1 on 08/22/2022 by Rafia Small MD at OR [facility] N/A: Spine Lumbar [employer] 06/21/2023 [id number] / [id number] / Description:battery Medtronic Lead Kit 60 Cm Implanted:Qty: 1 on 08/22/2022 by Rafia Small MD at OR [facility] N/A: Spine Lumbar 02/01/2026 [id number] / / [id number] Medtronic Lead Kit 60cm Implanted:Qty: 1 on 08/22/2022 by Rafia Small MD at OR [facility] N/A: Spine Lumbar 03/21/2026 [id number] / / [id number] Envelope Tyrx Med Antibacteril - [id number] Implanted:Qty: 1 on 08/22/2022 by Rafia Small MD at OR [facility] N/A: Spine Lumbar [employer] 03/10/2023 [id number] / / [id number] documented as of this encounter Advance Directives [...] the patient have Health Care Power of Hydraulic Corrugating Machine Operator? No Code Status History Code Status Date Activated Date Inactivated Comments Full Code 01/21/2011 12:12 PM 01/22/2011 8:48 PM This order reflects the patients wishes and were consensually agreed upon. Question Answer Comments Discussion of Advance Directives occurred with: Patient Does the patient have a Living Will? No Does the patient have Health Care Power of Hydraulic Corrugating Machine Operator? No Care Teams Fios Line Installer Relationship Specialty Start Date End Date Scott Weldon MD [address] [facility] [place] [address] PCP - General Family Medicine 08/03/18 documented as of this encounter
--- OUTSIDE RECORDS SUMMARY | 2024-02-02 08:58 | External Medical Summary | Summary of Care ---
Author Name Unknown Organization [facility] Address [address] [facility] [place] [address] Phone [phone] Care Team Providers Care Change Attendant Name Role Phone Scott Weldon MD Primary Care Provider + Reason for Visit * Reason Onset Date Comments Medication Refill 09/28/2023 Encounter Details Date Type Department Care Team (Late st Contact Info) Description 09/28/2023 Refill Family Practice [facility] [address] [facility] [place] [address] Scott Weldon MD [address] [place] [address] Bilateral low back pain with sciatica, sciatica laterality unspecified, unspecified chronicity Allergies Active Allergy Reactions Criticality Noted Date Comments Naproxen Sodium Bleeding High 11/29/2013 Pollen 12/03/2022 Seasonal Food (See Comments) Anaphylaxis High 04/20/2019 Hot peppers (oils) Kiwi Extract Anaphylaxis High 04/20/2019 documented as of this encounter (statuses as of 09/29/2023) Medications Medication Sig Dispensed Refills Start Date [...] Strip 5 02/17/2017 Active Insulin Infusion Pump (MINIMTheStreet 630G INSULIN PUMP) KITIndications:Type 2 diabetes mellitus with hemoglobin A1c goal of less than 8.0% ([facility]) Use as directed. 0 07/30/2017 Active [...] as of this encounter (statuses as of 09/29/2023) Active Problems Problem Noted Date Diagnosed Date [...] Family friend-Tony. Son Ricky-fall. Also son Hieu. Sim--2018 melanoma. . 12/24 EGD mild gastritis, krishna [...] as of this encounter (statuses as of 09/29/2023) Resolved Problems Problem Noted Date Diagnosed Date [...] Overview: Per Obesity Taxonomy Coronary atherosclerosis of [place] coronary artery 09/15/2008 10/03/2008 Malaise and fatigue [...] as of this encounter (statuses as of 09/29/2023) Immunizations Name Administration Dates Next Due COVID-19 mRNA, LNP-s, No Pre serve, 2-Dose Series (JustPark) 11/08/2020,10/11/2020 HEP A - Hepatitis A (Adult > 18 yrs) 04/11/2011, 09/20/2010 Hepatitis B, 20+ yrs 07/05/2015 Pneumococcal Conjugate Vacci ne, 20-valent ([id number]) 03/13/2023 Pneumococcal Polysaccharide PPV23 (Pneumovax) 02/19/2018,03/09/2007 Seasonal [...] 09/30/2023 9:00 AM EDT Office Visit Pharmacy, [address] [place] [address] [facility] [address] [facility], [place] [address] 10/05/2023 8:00 AM EDT Hospital Encounter ENDO [facility], Endoscopy Room [facility] [address] [place], [place] [phone] Aj Pruett, DO [address] [place] [address] 10/05/2023 8:00 AM EDT - 10/05/2023 9:00 AM EDT Surgery ENDO [facility], Endoscopy Room [facility] [address] [place] [phone] Aj Pruett, DO [address] [place] [address] COLONOSCOPY FLEXIBLE PROXIMAL DIAGNOSTIC 10/05/2023 12:00 PM EDT Telemedicine Psychiatry, [facility] [address] [facility] [place] [address] Rj Mai MD [address] [place] [address] 10/12/2023 2:30 PM EDT Office Visit General Surgery, [facility] [address] [facility] [place] [address] Mariano Billingsley MD [address] [place] [address] 11/04/2023 1:30 PM EDT Immunization/Injecti on Hematology/Oncolog y Treatment, [place] [address] [facility] [place] [phone] Nurse, Med 200 [facility] [place] [address] 11/05/2023 1:00 PM EDT Telemedicine Pharmacy, [facility] [address] [place] [address] [place] [facility] [address] [place], [place] [address] 11/24/2023 9:20 AM EDT Office Visit Sleep Disorders Ctr [facility] [address] [facility] [place] [phone] Lakisha Murcia DO [address] [place] [address] 11/25/2023 2:20 PM EDT Office Visit [facility] [address] [place] [address] Scott Weldon MD [address] [place] [address] 02/09/2024 8:00 AM EDT Telemedicine Gastroenterology, [facility] [address] [place] [address] Charlee Fields MD [address] [place] [address] 02/24/2024 2:15 PM EDT Office Visit Hematology/Oncolog y [facility] [address] [place] [phone] Sunil Bourgeois MD [address] [place] [address] 03/16/2024 12:20 PM EDT Office Visit [facility] [address] [place] [address] Scott Weldon MD [address] [place] [address] 03/24/2024 12:30 PM EDT Office Visit Ophthalmology, [facility] [address] [place] [address] Rolan Self, DO [address] [place] [address] 06/03/2024 10:40 AM EST Office Visit Nephrology, [facility] [address] [facility] [place], [place] [address] Jonathan Mathew MD [address] [facility] [place], [place] [address] Scheduled Procedures Name Priority Associated Diagnoses Date/Ti [...] this encounter Medical Devices Implanted Type Area Model Artists' Device Identifier Shelf Expiration Date Model / Serial / Lot Neurostimul Intellis Adaptiv - [id number] - [id number] Implanted:Qty: 1 on 08/22/2022 by Rafia Small MD at OR [facility] N/A: Spine Lumbar [employer] 06/21/2023 [id number] / [id number] / Description:battery Medtronic Lead Kit 60 Cm Implanted:Qty: 1 on 08/22/2022 by Rafia Small MD at OR [facility] N/A: Spine Lumbar 02/01/2026 [id number] / / [id number] Medtronic Lead Kit 60cm Implanted:Qty: 1 on 08/22/2022 by Rafia Small MD at OR [facility] N/A: Spine Lumbar 03/21/2026 [id number] / / [id number] Envelope Tyrx Med Antibacteril - [id number] Implanted:Qty: 1 on 08/22/2022 by Rafia Small MD at OR [facility] N/A: Spine Lumbar [employer] 03/10/2023 [id number] / / [id number] documented as of this encounter Visit Diagnoses Diagnosis Bilateral low back pain with sciatica, sciatica laterality unspecified, unspecified chronicity Colon cancer screening Special screening for malignant [...] the patient have Health Care Power of Tile Classifier? No Code Status History Code Status Date Activated Date Inactivated Comments Full Code 01/21/2011 12:12 PM 01/22/2011 8:48 PM This order reflects the patients wishes and were consensually agreed upon. Question Answer Comments Discussion of Advance Directives occurred with: Patient Does the patient have a Living Will? No Does the patient have Health Care Power of Tile Classifier? No Care Teams Change Attendant Relationship Specialty Start Date End Date Scott Weldon MD [address] [place] [address] PCP - General Family Medicine 08/03/18 documented as of this encounter
--- OUTSIDE RECORDS SUMMARY | 2024-02-02 08:58 | External Medical Summary | Summary of Care ---
Author Name Unknown Organization [facility] Address 100 [facility] [place] [address] Phone [phone] Care Team Providers Care Terrazzo Polisher Helper Name Role Phone Scott Weldon MD Primary Care Provider + Reason for Visit * Reason Onset Date Comments Test Results 09/24/2023 Encounter Details Date Type Department Care Team (Late st Contact Info) Description 09/24/2023 Telephone [facility] [address] [place] [address] Jonathan Mathew MD 200 [facility] [place] [address] Test Results Allergies Active Allergy Reactions Criticality Noted Date Comments Naproxen Sodium Bleeding High 11/29/2013 Pollen 12/03/2022 Seasonal Food (See Comments) Anaphylaxis High 04/20/2019 Hot peppers (oils) Kiwi Extract Anaphylaxis High 04/20/2019 documented as of this encounter (statuses as of 09/24/2023) Medications Medication Sig Dispensed Refills Start Date [...] Strip 5 7 Active Insulin Infusion Pump (MINIMPubster 630G INSULIN PUMP) KITIndications:Type 2 diabetes mellitus with hemoglobin A1c goal of less than 8.0% ([facility]) Use as directed. 0 8 Active CPAP [...] suspected opioid overdose. Seek immediate medical attention. [email or web address]/[email or web address]?v=[email or web address] 1 Each 3 3 Active Atenolol 100 [...] BEFORE BEDTIME 270 Capsule 1 3 Active Eszopiclone 2 MG Oral Tablet (Lunesta) [...] a week. 4 Patch 0 4 Active Losartan Potassium 25 MG Oral Tablet (Cozaar)Indications :HTN, goal below 130/80 TAKE 1 TABLET BY MOUTH EVERYDAY AT BEDTIME 90 Tablet 1 3 09/24/19 24 Discontinu ed(Patient preference /discontin uation) Baclofen 10 MG Oral Tablet (Lioresal)Indicatio ns:muscle spasms Take 1 Tablet by mouth 3 times a day as needed for Muscle spasms. 90 Tablet 5 4 09/24/19 24 Discontinu ed(Patient preference /discontin uation) Potassium Chloride ER 10 MEQ Oral Tablet Extended ReleaseIndications: HTN, goal below 130/80 TAKE 1 TABLET BY MOUTH TWICE A DAY WITH FOOD 180 Tablet 1 4 09/24/19 24 Discontinu ed(Patient preference /discontin uation) Empagliflozin 10 MG Oral Tablet (Jardiance)Indicati ons:Type 2 diabetes mellitus with hemoglobin A1c goal of less than 8.0% ([facility]) Take 1 Tablet by mouth in the morning. 30 Tablet 0 4 09/24/19 24 Discontinu ed(Patient preference /discontin uation) Furosemide 20 MG Oral Tablet (Lasix) Take 1 Tablet by mouth in the morning. 30 Tablet 11 4 09/24/19 24 Discontinu ed(Patient preference /discontin uation) Spironolactone 25 MG Oral Tablet (Aldactone) Take 1 Tablet by mouth in the morning. 30 Tablet 5 4 09/24/19 24 Discontinu ed(Patient preference /discontin uation) documented as of this encounter (statuses as of 09/24/2023) Active Problems Problem Noted Date Diagnosed Date [...] as of this encounter (statuses as of 09/24/2023) Resolved Problems Problem Noted Date Diagnosed Date [...] as of this encounter (statuses as of 09/24/2023) Immunizations Name Administration Dates Next Due COVID-19 mRNA, LNP-s, No Pre serve, 2-Dose Series (Pfizer) 11/08/2020,10/11/2020 HEP A - Hepatitis A (Adult > 18 yrs) 04/11/2011, 09/20/2010 Hepatitis B, 20+ yrs 07/05/2015 Pneumococcal Conjugate Vacci ne, 20-valent ([id number]) 03/13/2023 Pneumococcal Polysaccharide PPV23 (Pneumovax) 02/19/2018,03/09/2007 Seasonal [...] Miscellaneous Notes * Telephone Encounter - Carmen Ocasio RN - 09/24/2023 11:43 AM EDT Message sent via Capical updated and lab orders placed. * Telephone Encounter - Carmen Ocasio RN - 09/24/2023 11:34 AM EDT ----- Message from Jonathan Mathew MD sent at 09/24/2023 11:30 AM EDT ----- Kidney function continues go low--lowish BP since being on Ozempic/wt loss So will have to use less BP lowering agents. Stop lasix, Aldactone, Stop K pill, Stop jardiance and Losartan. Also stop baclofen Repeat renal panel and UA and prot/creat again in about 10 days. documented in this encounter Plan of Treatment Upcoming Encounters Date Type Department Care Team (Late st Contact Info) Description 09/30/2023 9:00 AM EDT Office Visit Pharmacy, [place] [address] [facility], [place] [address] [place], [facility] [address] [facility], [place] [address] 10/05/2023 8:00 AM EDT Hospital Encounter [facility], Endoscopy Room [facility] [address] [place] [phone] Aj Pruett, DO [address] [place] [address] 10/05/2023 8:00 AM EDT - 10/05/2023 9:00 AM EDT Surgery ENDO [facility], Endoscopy Room [facility] [address] [place] [phone] Aj Pruett, DO [address] [place] [address] COLONOSCOPY FLEXIBLE PROXIMAL DIAGNOSTIC 10/05/2023 12:00 PM EDT Telemedicine Psychiatry, [facility] [address] [facility] [place] [address] Rj Mai MD [address] [place] [address] 10/12/2023 2:30 PM EDT Office Visit General Surgery, [facility] [address] [place] [address] Mariano Billingsley MD [address] [place] [address] 11/04/2023 1:30 PM EDT Immunization/Injecti on Hematology/Oncolog y Treatment, [place] [address] [facility] [address] [address] [place] [phone] Nurse, Med 200 [facility] [place] [address] 11/05/2023 1:00 PM EDT Telemedicine Pharmacy, [facility] [place] [address] [place] [facility] [address] [place] [address] 11/24/2023 9:20 AM EDT Office Visit Sleep Disorders Ctr [facility] [address] [place] [phone] Lakisha Murcia DO [address] [place] [address] 11/25/2023 2:20 PM EDT Office Visit [facility] [address] [facility] [place] [address] Scott Weldon MD [address] [place] [address] 02/09/2024 8:00 AM EDT Telemedicine Gastroenterology, [address] [address] Charlee Fields MD [address] [place] [address] 02/24/2024 2:15 PM EDT Office Visit Hematology/Oncolog y [place] [place] [address] [place] [phone] Sunil Bourgeois MD [address] [place] [address] 03/16/2024 12:20 PM EDT Office Visit [facility] [address] [place] [address] Scott Weldon MD [address] [place] [address] 03/24/2024 12:30 PM EDT Office Visit Ophthalmology, [facility] [address] [place] [address] Rolan Self, [address] [place] [address] 06/03/2024 10:40 AM EST Office Visit Nephrology, [facility] [address] [facility] [place] [address] Jonathan Mathew MD [address] [facility] [place] [address] Scheduled Orders Name Type Priority Associated Diagnoses Orde r Schedule RENAL FUNCTION PANEL Lab Routine Stage 3b chronic kidney disease (HCC) Expected: 10/01/2023 (Approximate), Expires: 09/23/2024 URINALYSIS WITH MICROSCOPIC EXAM Lab Routine Stage 3b chronic kidney disease (HCC) Expected: 10/01/2023 (Approximate), Expires: 09/23/2024 PROTEIN/ CREATININE RATIO, URINE Lab Routine Stage 3b chronic kidney disease (HCC) Expected: 10/01/2023 (Approximate), Expires: 09/23/2024 Scheduled Procedures Name Priority Associated Diagnoses Date/Ti [...] 0 09/2022, 06/14/2020, Additional history exists GFR 09/22/2024 09/23/2023, 0 07/2023, 08/27/2023, Additional history exists Pap Smear [...] this encounter Medical Devices Implanted Type Area Audio Installer Device Identifier Shelf Expiration Date Model / Serial / Lot Neurostimul Intellis Adaptiv - [id number] - [id number] Implanted:Qty: 1 on 08/22/2022 by Rafia Small MD at OR [facility] N/A: Spine Lumbar [employer] 06/21/2023 [id number] / [id number] / Description:battery Medtronic Lead Kit 60 Cm Implanted:Qty: 1 on 08/22/2022 by Rafia Small MD at OR [facility] N/A: Spine Lumbar 02/01/2026 [id number] / / [id number] Medtronic Lead Kit 60cm Implanted:Qty: 1 on 08/22/2022 by Rafia Small MD at OR [facility] N/A: Spine Lumbar 03/21/2026 [id number] / / [id number] Envelope Tyrx Med Antibacteril - [id number] Implanted:Qty: 1 on 08/22/2022 by Rafia Small MD at OR [facility] N/A: Spine Lumbar [employer] 03/10/2023 [id number] / / [id number] documented as of this encounter Visit Diagnoses Diagnosis Stage 3b chronic kidney disease (HCC)- Primary Colon cancer screening Special screening [...] the patient have Health Care Power of Mechanical Lead? No Code Status History Code Status Date Activated Date Inactivated Comments Full Code 01/21/2011 12:12 PM 01/22/2011 8:48 PM This order reflects the patients wishes and were consensually agreed upon. Question Answer Comments Discussion of Advance Directives occurred with: Patient Does the patient have a Living Will? No Does the patient have Health Care Power of Mechanical Lead? No Care Teams Terrazzo Polisher Helper Relationship Specialty Start Date End Date Scott Weldon MD [address] [place] [address] PCP - General Family Medicine 08/03/18 documented as of this encounter
--- OUTSIDE RECORDS SUMMARY | 2024-02-02 08:59 | External Medical Summary ---
Author Name Unknown Address Unknown Organization [id number][facility] [place] [address] Laboratory Report Ordering Provider Test Date Status LUIS ANTONIO LEIVA 09/23/2023 14:27:11 Final Observation Date Value Abnormality Reference (Units ) Status SYNC LEUKOCYTES IN BLOOD BY AUTOMATED COUNT 09/23/2023 14:27:11 6.96 4.00-10.80 (K/uL) Final Segs 09/23/2023 14:27:11 69.7 40.0-75.0 (%) Final Lymphs % 09/23/2023 14:27:11 19.1 18.0-42.0 (%) Final Monos 09/23/2023 14:27:11 7.9 1.0-11.0 (%) Final Eosinophils 09/23/2023 14:27:11 2.9 0.0-6.0 (%) Final Basos 09/23/2023 14:27:11 0.4 0.0-2.0 (%) Final Absolute Segs 09/23/2023 14:27:11 4.85 1.80-7.70 (K/uL) Final Lymphs, absolute 09/23/2023 14:27:11 1.33 1.00-4.80 (K/ul) Final Monos, Abs 09/23/2023 14:27:11 0.55 0.00-1.10 (K/uL) Final Eos, Abs 09/23/2023 14:27:11 0.20 0.00-0.70 (K/uL) Final Basos, Abs 09/23/2023 14:27:11 0.03 0.00-0.20 (K/uL) Final Performing Location [facility] [place] [address]
--- OUTSIDE RECORDS SUMMARY | 2024-02-02 08:59 | External Medical Summary ---
Author Name Unknown Address Unknown Organization [id number]:[facility] [place] [address] Laboratory Report Ordering Provider Test Date Status GUS KENNEDY 09/23/2023 14:27:11 Final Observation Date Value Abnormality Reference (Units ) Status BUN 09/23/2023 14:27:11 29 Above high normal 6-20 (mg/dL) Final Creatinine 09/23/2023 14:27:11 2.1 Above high normal 0.5-1.0 (mg/dL) Final Glomerular filtration rate/1.73 sq M.predicted [Volume Rate/Area] in Serum, Plasma or Blood by Creatinine-based formula (CKD-EPI) 09/23/2023 14:27:11 28 Below low normal >=60 (mL/min) Final eGFR is calculated based on the CKD-EPI 2020 equation Sodium 09/23/2023 14:27:11 141 135-146 (m mol/L) Final Potassium 09/23/2023 14:27:11 4.4 3.5-5.1 (m mol/L) Final Cl 09/23/2023 14:27:11 103 98-107 (mm ol/L) Final CO2 09/23/2023 14:27:11 26 22-32 (mmo l/L) Final Anion gap 09/23/2023 14:27:11 12 7-15 (mmol /L) Final Glucose 09/23/2023 14:27:11 102 70-120 (mg /dL) Final Calcium 09/23/2023 14:27:11 8.9 8.4-10.2 ( mg/dL) Final Performing Location [facility] [place] [address]
--- OUTSIDE RECORDS SUMMARY | 2024-02-02 08:59 | External Medical Summary ---
Author Name Unknown Address Unknown Organization K09:[facility] [place] [address] Laboratory Report Ordering Provider Test Date Status LUIS ANTONIO LEIVA 09/23/2023 14:27:11 Final Observation Date Value Abnormality Reference (Units ) Status WBC, Total 09/23/2023 14:27:11 6.96 4.00-10.8 0 (K/uL) Final RBC 09/23/2023 14:27:11 4.05 3.85-5.15 (M/uL) Final Hemoglobin 09/23/2023 14:27:11 11.4 Below low normal 12 .0-15.3 (g/dL) Final HCT 09/23/2023 14:27:11 35.5 Below low normal 36. 0-45.2 (%) Final MCV 09/23/2023 14:27:11 87.7 81.5-97.5 (fL) Final MCH 09/23/2023 14:27:11 28.1 27.0-34.0 (pg) Final MCHC 09/23/2023 14:27:11 32.1 32.0-36.0 (g/dL) Final RDW 09/23/2023 14:27:11 15.6 11.5-15.5 (%) Final Platelets 09/23/2023 14:27:11 89 Below low normal 140 -400 (K/uL) Final MPV 09/23/2023 14:27:11 9.8 6.6-11.1 ( fL) Final Performing Location [facility] [place] [address]
--- OUTSIDE RECORDS SUMMARY | 2024-02-02 08:59 | External Medical Summary ---
Author Name Unknown Address Unknown Organization K01:[facility] [address] [place] [address] Laboratory Report Ordering Provider Test Date Status LISA MARIE 09/23/2023 14:34:43 Final Normal: <150 mg/ g creatinine
High: 150-500 mg/g creatinine
Very High: >500 mg/g creatinine
Nephrotic: >3000 mg/g creatinine Observation Date Value Abnormality Reference (Units ) Status Protein/Creatinine [Ratio] in Urine 09/23/2023 14:34:43 62 <150 (mg/g ) Final Protein, Urine 09/23/2023 14:34:43 4 (mg/dL) Final Creatinine, Urine 09/23/2023 14:34:43 65 (mg/dL) Final Performing Location [facility] - [address] [place] [address]
--- OUTSIDE RECORDS SUMMARY | 2024-02-02 08:59 | External Medical Summary | Summary of Care ---
Author Name Unknown Organization [facility] Address [address] [facility] [place] [address] Phone [phone] Care Team Providers Care Business Loan Processor Name Role Phone Scott Montoya MD Primary Care Provider + Reason for Visit * Reason Onset Date Comments Medication Refill 09/21/2023 Encounter Details Date Type Department Care Team (Late st Contact Info) Description 09/21/2023 Refill Family Practice [facility] [address] [place] [address] Scott Montoya MD [address] [place] [address] Controlled substance agreement signed; Chronic bilateral low back pain with sciatica, sciatica laterality unspecified; Chronic pain syndrome Allergies Active Allergy Reactions Criticality Noted Date Comments Naproxen Sodium Bleeding High 11/29/2013 Pollen 12/03/2022 Seasonal Food (See Comments) Anaphylaxis High 04/20/2019 Hot peppers (oils) Kiwi Extract Anaphylaxis High 04/20/2019 documented as of this encounter (statuses as of 09/23/2023) Medications Medication Sig Dispensed Refills Start Date [...] of less than 8.0% ([facility]) Use as directed. 0 8 Active CPAP [...] suspected opioid overdose. Seek immediate medical attention. [email or web address] 1 Each 3 3 Active Atenolol 100 [...] AT BEDTIME 90 Tablet 1 3 Active NovoLIN R ReliOn 100 UNIT/ML Injection Solution (insulin REGULAR human)Indications:T ype 2 diabetes mellitus with hemoglobin A1c goal of less than 8.0% ([facility]),DM type 2, not at goal ([facility]) INJECT UP TO 200 UNITS SUBCUTANEOSULY [...] WITH FOOD 180 Tablet 1 4 Active Eszopiclone 2 MG [...] the morning. 90 Tablet 3 4 Active Empagliflozin 10 MG Oral Tablet (Jardiance)Indicati ons:Type 2 diabetes mellitus with hemoglobin A1c goal of less than 8.0% (HCC) Take 1 Tablet by mouth in the morning. 30 Tablet 0 4 Active hydrOXYzine HCl 25 MG Oral Tablet Take 1 tab during the day every 4-6 hours as needed for anxiety and take 2 tabs at bedtime as needed for anxiety 120 Tablet 1 4 Active metFORMIN HCl 1000 MG Oral Tablet (Glucophage)Indicat ions:DM type 2, not at goal (HCC) TAKE 1 TABLET BY MOUTH daily 0 4 Active Atorvastatin Calcium 40 MG Oral Tablet (Lipitor)Indication s:Dyslipidemia, goal LDL below 100 TAKE 1 TABLET BY MOUTH EVERY DAY IN THE MORNING 90 Tablet 3 4 Active Albuterol Sulfate HFA 108 (90 Base) MCG/ACT Inhalation Aerosol Solution INHALE 2 PUFFS BY MOUTH EVERY 6 HOURS NEEDED FOR SHORTNESS OF BREATH 18 g 2 4 Active Furosemide 20 MG Oral Tablet (Lasix) Take 1 Tablet by mouth in the morning. 30 Tablet 11 4 Active Spironolactone 25 MG Oral Tablet (Aldactone) Take 1 Tablet by mouth in the morning. 30 Tablet 5 4 Active Buprenorphine 5 MCG/HR Transdermal [...] once a week. 4 Patch 0 4 09/21/19 24 Discontinu ed(Refill) documented as of this encounter (statuses as of 09/23/2023) Active Problems Problem Noted Date Diagnosed Date [...] as of this encounter (statuses as of 09/23/2023) Resolved Problems Problem Noted Date Diagnosed Date [...] as of this encounter (statuses as of 09/23/2023) Immunizations Name Administration Dates Next Due COVID-19 mRNA, LNP-s, No Pre serve, 2-Dose Series ([employer]) 11/08/2020,10/11/2020 HEP A - Hepatitis A (Adult > 18 yrs) 04/11/2011, 09/20/2010 Hepatitis B, 20+ yrs 07/05/2015 Pneumococcal Conjugate Vacci ne, 20-valent ([id number]) 03/13/2023 Pneumococcal Polysaccharide PPV23 (Pneumovax) 02/19/2018,03/09/2007 Seasonal [...] Telephone Encounter - Scott Montoya MD - 09/23/2023 8:32 AM EDTSigned Prescriptions: Disp Refills Buprenorphine 5 MCG/HR Transdermal Patch W*4 Patch0 Sig: Place 1 Patch topically on the skin once a week. Authorizing Provider: SCOTT MONTOYA * Telephone Encounter - [facility] - 09/23/2023 5:18 AM EDTPending Prescriptions: Disp Refills Buprenorphine 5 MCG/HR Transdermal Patch W*4 Patch0 Sig: Place 1 Patch topically on the skin once a week. * Telephone Encounter - [facility] - 09/23/2023 5:16 AM EDT I have reviewed the patients controlled substance dispensing history in the Prescription Drug Monitoring Program in compliance with the [facility] regulations before prescribing a controlled substance. PDMP checked on 09/23/2023. Pending Prescriptions: Disp Refills Buprenorphine 5 MCG/HR Transdermal Patch *4 Patch0 Sig: Place 1 Patch topically on the skin once a week. Last Visit: 09/08/2023 (in office), 09/08/2022 (telemedicine) Next Visit: 11/25/2023 Date medication was last filled: 08/26/23 Date medication is due for refill: 09/23/23 Pharmacy: [id number] Is this request for a controlled [...] Results Review. Please approve if appropriate. Thank You, [facility] Clinical Pharmacist Centralized Clinical Pharmacy Services (CCPS) (formerly Telepharmacy) [phone] 09/23/2023, 5:17 AM documented in this encounter Plan of Treatment Upcoming Encounters Date Type Department Care Team (Late st Contact Info) Description 09/23/2023 2:00 PM EDT Immunization/Injecti on Hematology/Oncolog y Treatment, [place] [address] [place] [phone] Nurse, Med 200 [facility] [place] [address] 09/23/2023 2:30 PM EDT Laboratory Laboratory [facility] [place] [address] [facility] [place] [phone] [facility] [address] [facility] [place] [address] 09/30/2023 9:00 AM EDT Office Visit Pharmacy, [address] [address] [facility] [address] [place] [address] 10/05/2023 8:00 AM EDT Hospital Encounter ENDO [facility], Endoscopy Room [facility] [address] [place] [phone] Aj Pruett DO [address] [place] [address] 10/05/2023 8:00 AM EDT - 10/05/2023 9:00 AM EDT Surgery ENDO [facility], Endoscopy Room [facility] [address] [place] [phone] Aj Pruett, DO [address] [place] [address] COLONOSCOPY FLEXIBLE PROXIMAL DIAGNOSTIC 10/05/2023 12:00 PM EDT Telemedicine Psychiatry, [address] [place] [address] Rj Mai MD [address] [facility], [place] [id number] 10/12/2023 2:30 PM EDT Office Visit General Surgery, [facility] [address] [place] [address] Mariano Billingsley MD [address] [place] [address] 11/05/2023 1:00 PM EDT Telemedicine Pharmacy, [facility] [address] [place] [address] [facility] [address] [place] [address] 11/24/2023 9:20 AM EDT Office Visit Sleep Disorders Ctr [facility] [address] [place] [phone] Lakisha Murcia, DO [address] [place] [address] 11/25/2023 2:20 PM EDT Office Visit Family Practice [facility] [address] [place] [address] Scott Montoya MD [address] [place] [address] 02/09/2024 8:00 AM EDT Telemedicine Gastroenterology, [facility] [address] [place], [place] [phone] Charlee Fields MD [address] [place] [facility] [place] [address] 02/24/2024 2:15 PM EDT Office Visit Hematology/Oncolog y [facility] [place] [address] [phone] Sunil Bourgeois MD [facility] [place] [address] 03/16/2024 12:20 PM EDT Office Visit Family Practice [facility] 132 [place] [address] Scott Montoya MD 132 [facility] [place] [address] 03/24/2024 12:30 PM EDT Office Visit Ophthalmology, [facility] [address] [place] [address] Rolan Self DO 21 [facility] [place] [address] 06/03/2024 10:40 AM EST Office Visit Nephrology, [facility] [address] [address] Jonathan Mathew MD [address] [place] [address] Scheduled Procedures Name Priority Associated Diagnoses Date/Ti [...] 09/08/2023, 09/2022, 06/14/2020, Additional history exists GFR 09/07/2024 09/08/2023, 08/07, 08/20/2023, Additional history exists Pap Smear 09/07/2026 09/08/2023, [...] this encounter Medical Devices Implanted Type Area Supervisor Research Kennel Device Identifier Shelf Expiration Date Model / Serial / Lot Neurostimul Intellis Adaptiv - [id number] - [id number] Implanted:Qty: 1 on 08/22/2022 by Rafia Small MD at OR [facility] N/A: Spine Lumbar [employer] 06/21/2023 [id number] / [id number] / Description:battery Medtronic Lead Kit 60 Cm Implanted:Qty: 1 on 08/22/2022 by Rafia Small MD at OR [facility] N/A: Spine Lumbar 02/01/2026 [id number] / / [id number] Medtronic Lead Kit 60cm Implanted:Qty: 1 on 08/22/2022 by Rafia Small MD at OR [facility] N/A: Spine Lumbar 03/21/2026 [id number] / / [id number] Envelope Tyrx Med Antibacteril - [id number] Implanted:Qty: 1 on 08/22/2022 by Rafia Small MD at OR [facility] N/A: Spine Lumbar [employer] 03/10/2023 [id number] / / [id number] documented as of this encounter Visit Diagnoses Diagnosis Controlled substance agreement signed Encounter for long-term (current) use of other medications Chronic bilateral low back pain with sciatica, sciatica laterality unspecified Chronic pain syndrome Colon cancer screening Special screening for malignant [...] the patient have Health Care Power of Contract Attorney? No Code Status History Code Status Date Activated Date Inactivated Comments Full Code 01/21/2011 12:12 PM 01/22/2011 8:48 PM This order reflects the patients wishes and were consensually agreed upon. Question Answer Comments Discussion of Advance Directives occurred with: Patient Does the patient have a Living Will? No Does the patient have Health Care Power of Contract Attorney? No Care Teams Business Loan Processor Relationship Specialty Start Date End Date Scott Montoya MD [address] [place] [address] PCP - General Family Medicine 08/03/18 documented as of this encounter
--- OUTSIDE RECORDS SUMMARY | 2024-02-02 08:59 | External Medical Summary | Summary of Care ---
Author Name Unknown Organization [facility] Address 100 [facility] [place] [address] Phone [phone] Care Team Providers Care Custom Framing Specialist Name Role Phone Scott Weldon MD Primary Care Provider + Reason for Visit * Reason Comments Outpatient Testing Encounter Details Date Type Department Care Team (Late st Contact Info) Description 09/23/2023 2:30 PM EDT Laboratory Laboratory [facility] [address] [place] [phone] [facility] 200 [facility] [place] [address] Screening for STD (sexually transmitted disease); Stage 3b chronic kidney disease (HCC) Allergies Active Allergy Reactions Criticality Noted Date Comments Naproxen Sodium Bleeding High 11/29/2013 Pollen 12/03/2022 Seasonal Food (See Comments) Anaphylaxis High 04/20/2019 Hot peppers (oils) Kiwi Extract Anaphylaxis High 04/20/2019 documented as of this encounter (statuses as of 09/23/2023) Medications Medication Sig Dispensed Refills Start Date End Date Status ONETOUCH ULTRASOFT LANCETS MISCIndications:DM type 2, not at goal ([facility]) check FS 6 times daily [...] Strip 5 02/17/2017 Active Insulin Infusion Pump (MINIMKirondo 630G INSULIN PUMP) KITIndications:Type 2 diabetes mellitus with hemoglobin A1c goal of less than 8.0% ([facility]) Use as directed. 0 07/30/2017 [...] 180 days 1 Each 1 04/16/2023 Active Losartan Potassium 25 MG Oral Tablet (Cozaar)Indications :HTN, goal below 130/80 TAKE 1 TABLET BY MOUTH EVERYDAY AT BEDTIME 90 Tablet 1 04/17/2023 Active NovoLIN R ReliOn 100 UNIT/ML Injection Solution (insulin REGULAR human)Indications:T ype 2 diabetes mellitus with hemoglobin A1c goal of less than 8.0% ([facility]),DM type 2, not at goal ([facility]) INJECT UP TO 200 UNITS SUBCUTANEOSULY ONCE DAILY VIA PUMP 60 mL 0 05/05/2023 Active Pregabalin 100 MG Oral Capsule (Lyrica)Indications :Bilateral low back pain with sciatica, sciatica laterality unspecified, unspecified chronicity TAKE 1 CAPSULE BY MOUTH EVERY DAY IN THE MORNING , AT NOON, AND BEFORE BEDTIME 270 Capsule 1 06/05/2023 Active Baclofen 10 MG Oral Tablet (Lioresal)Indicatio ns:muscle spasms Take 1 Tablet by mouth 3 times a day as needed for Muscle spasms. 90 Tablet 5 06/30/2023 Active Potassium Chloride ER 10 MEQ Oral Tablet Extended ReleaseIndications: HTN, goal below 130/80 TAKE 1 TABLET BY MOUTH TWICE A DAY WITH FOOD 180 Tablet 1 07/17/2023 Active Eszopiclone 2 MG Oral Tablet (Lunesta) [...] the morning. 90 Tablet 3 09/01/2023 Active Empagliflozin 10 MG Oral Tablet (Jardiance)Indicati ons:Type 2 diabetes mellitus with hemoglobin A1c goal of less than 8.0% (HCC) Take 1 Tablet by mouth in the morning. 30 Tablet 0 09/02/2023 Active hydrOXYzine HCl 25 MG Oral Tablet Take 1 tab during the day every 4-6 hours as needed for anxiety and take 2 tabs at bedtime as needed for anxiety 120 Tablet 1 09/09/2023 Active metFORMIN HCl 1000 MG Oral Tablet (Glucophage)Indicat ions:DM type 2, not at goal (HCC) TAKE 1 TABLET BY MOUTH daily 0 09/09/2023 Active Atorvastatin Calcium 40 MG Oral Tablet (Lipitor)Indication s:Dyslipidemia, goal LDL below 100 TAKE 1 TABLET BY MOUTH EVERY DAY IN THE MORNING 90 Tablet 3 09/14/2023 Active Albuterol Sulfate HFA 108 (90 Base) MCG/ACT Inhalation Aerosol Solution INHALE 2 PUFFS BY MOUTH EVERY 6 HOURS NEEDED FOR SHORTNESS OF BREATH 18 g 2 09/16/2023 Active Furosemide 20 MG Oral Tablet (Lasix) Take 1 Tablet by mouth in the morning. 30 Tablet 11 09/15/2023 Active Spironolactone 25 MG Oral Tablet (Aldactone) Take 1 Tablet by mouth in the morning. 30 Tablet 5 09/15/2023 Active Buprenorphine 5 MCG/HR Transdermal Patch Weekly [...] Overview: Per Obesity Taxonomy Coronary atherosclerosis of [place] coronary artery 09/15/2008 10/03/2008 Malaise and fatigue [...] yrs 07/05/2015 Pneumococcal Conjugate Vacci ne, 20-valent ([id number]) 03/13/2023 Pneumococcal Polysaccharide PPV23 (Pneumovax) 02/19/2018,03/09/2007 Seasonal [...] 09/30/2023 9:00 AM EDT Office Visit Pharmacy, [place] [address] [place] [address] [facility] [address] [place] [address] 10/05/2023 8:00 AM EDT Hospital Encounter ENDO [facility], Endoscopy Room [facility] [address] [place] [phone] Aj Pruett, DO [address] [place] [address] 10/05/2023 8:00 AM EDT - 10/05/2023 9:00 AM EDT Surgery ENDO [facility], Endoscopy Room [facility] [address] [place] [phone] Aj Pruett, DO [address] [place] [address] COLONOSCOPY FLEXIBLE PROXIMAL DIAGNOSTIC 10/05/2023 12:00 PM EDT Telemedicine Psychiatry, [facility] 200 [facility] [place], [place] [address] Rj Mai MD [address] [place] [address] 10/12/2023 2:30 PM EDT Office Visit General Surgery, [facility] [address] [place] [address] Mariano Billingsley MD [address] [place] [address] 11/04/2023 1:30 PM EDT Immunization/Injecti on Hematology/Oncolog y Treatment, [place] [address] [place] [phone] Nurse, Med 200 [facility] [place] [address] 11/05/2023 1:00 PM EDT Telemedicine Pharmacy, [facility] [address] [place] [address] [facility] [address] [place] [address] 11/24/2023 9:20 AM EDT Office Visit Sleep Disorders Ctr [facility] [address] [place] [phone] Lakisha Murcia DO [address] [place] [address] 11/25/2023 2:20 PM EDT Office Visit Family Practice [facility] [address] [place] [address] Scott Weldon MD [address] [place] [address] 02/09/2024 8:00 AM EDT Telemedicine Gastroenterology, [address] [place] [address] Charlee Fields MD [address] [place] [address] 02/24/2024 2:15 PM EDT Office Visit Hematology/Oncolog y [employer] [address] [facility] [place] [phone] Sunil Bourgeois MD [address] [facility] [place] [address] 03/16/2024 12:20 PM EDT Office Visit Family Practice [facility] [address] Scott Weldon MD [address] [facility] [place] [address] 03/24/2024 12:30 PM EDT Office Visit Ophthalmology, [facility] 132 [place] [address] Rolan Self, DO 21 [place] [address] 06/03/2024 10:40 AM EST [facility] [address] [address] Jonathan Mathew MD [address] [facility] [place] [address] Pending Results Name Type Priority Associated Diagnoses Date /Time CHLAMYDIA TRACHOMATIS AND NEISSERIA GONORRHOEAE, AMPLIFIED PROBE Lab Routine Screening for STD (sexually transmitted disease) 09/23/2023 2:34 PM EDT PROTEIN/ CREATININE RATIO, URINE Lab Routine Stage 3b chronic kidney disease (HCC) 09/23/2023 2:34 PM EDT URINALYSIS WITH MICROSCOPIC EXAM Lab Routine Stage 3b chronic kidney disease (HCC) 09/23/2023 2:34 PM EDT Scheduled Procedures Name Priority Associated [...] encounter Medical Devices Implanted Type Area Manager Of Program Device Identifier Shelf Expiration Date Model / Serial / Lot Neurostimul Intellis Adaptiv - [id number] - [id number] Implanted:Qty: 1 on 08/22/2022 by Rafia Small MD at OR [facility] N/A: Spine Lumbar [employer] 06/21/2023 [id number] / [id number] / Description:battery Medtronic Lead Kit 60 Cm Implanted:Qty: 1 on 08/22/2022 by Rafia Small MD at OR [facility] N/A: Spine Lumbar 02/01/2026 [id number] / / [id number] Medtronic Lead Kit 60cm Implanted:Qty: 1 on 08/22/2022 by Rafia Small MD at OR [facility] N/A: Spine Lumbar 03/21/2026 [id number] / / [id number] Envelope Tyrx Med Antibacteril - [id number] Implanted:Qty: 1 on 08/22/2022 by Rafia Small MD at OR [facility] N/A: Spine Lumbar [employer] 03/10/2023 [id number] / / [id number] documented as of this encounter Visit Diagnoses Diagnosis Screening for STD (sexually transmitted disease) Screening examination for venereal disease Stage 3b chronic kidney disease (HCC) Colon cancer screening Special screening for malignant [...] the patient have Health Care Power of Explosive Ordnance Manager? No Code Status History Code Status Date Activated Date Inactivated Comments Full Code 01/21/2011 12:12 PM 01/22/2011 8:48 PM This order reflects the patients wishes and were consensually agreed upon. Question Answer Comments Discussion of Advance Directives occurred with: Patient Does the patient have a Living Will? No Does the patient have Health Care Power of Explosive Ordnance Manager? No Care Teams Custom Framing Specialist Relationship Specialty Start Date End Date Scott Weldon MD [address] [place] [address] PCP - General Family Medicine 08/03/18 documented as of this encounter
--- OUTSIDE RECORDS SUMMARY | 2024-02-02 08:59 | External Medical Summary ---
Author Name Unknown Address Unknown Organization [id number]:[facility] [place] [address] [place] [address] Laboratory Report Ordering Provider Test Date Status LISA MARIE 09/23/2023 14:27:11 Final Deficient: <20 ng/mL
Ins ufficient: 20-29 ng/mL
Recommended/Optimum:30-50 ng/mL

Vitamin D intoxication is rare. If suspicious of Vitamin D toxicity, evaluation of serum Calcium and PTH is recommended. Observation Date Value Abnormality Reference (Units ) Status 25-OH Vitamin D total 09/23/2023 14:27:11 32 >19 (ng/mL) Final Performing Location [facility] [place] [facility] [address] [place] [address]
--- OUTSIDE RECORDS SUMMARY | 2024-02-02 08:59 | External Medical Summary ---
Author Name Unknown Address Unknown Organization [id number]:[facility] [place] [address] [facility] [address] [facility] [address] Laboratory Report Ordering Provider Test Date Status ALBER PARK 09/23/2023 14:34:43 Final Observation Date Value Abnormality Reference (Units ) Status Chlamydia trachomatis rRNA [Presence] in Specimen by MILLIE with probe detection 09/23/2023 14:34:43 Negative Negative Final No Chlamydia trachomatis det ected by subscription agent-mediated nucleic acid amplification. Neisseria gonorrhoeae rRNA [ Presence] in Specimen by MILLIE with probe detection 09/23/2023 14:34:43 Negative Negative Final No Neisseria gonorrhoeae det ected by subscription agent-mediated nucleic acid amplification. Performing Location [facility] [place] [facility] [address] [facility] [address]
--- OUTSIDE RECORDS SUMMARY | 2024-02-02 08:59 | External Medical Summary ---
Author Name Unknown Address Unknown Organization K09:[facility] [place] [facility]- [address] [place] [address] Laboratory Report Ordering Provider Test Date Status LISA MAIRE 09/23/2023 14:34:43 Final Observation Date Value Abnormality Reference (Units ) Status Color of Urine by Auto 09/23/2023 14:34:43 Yellow Light Yellow, Yellow, Dark Yellow Final Clarity, Urine 09/23/2023 14:34:43 Clear Clear Final Glucose [Mass/volume] in Urine by Automated test strip 09/23/2023 14:34:43 250 Abnormal Negative (mg/dL) Final Bilirubin.total [Presence] in Urine by Automated test strip 09/23/2023 14:34:43 Negative Negative Final Ketones [Mass/volume] in Urine by Automated test strip 09/23/2023 14:34:43 Negative Negative (mg/dL) Final Specific gravity, Urine 09/23/2023 14:34:43 1.015 1.003-1.030 Final Hemoglobin [Presence] in Urine by Automated test strip 09/23/2023 14:34:43 Negative Negative Final pH, Urine 09/23/2023 14:34:43 5.0 5.0-7.5 (Units) Final Protein [Mass/volume] in Urine by Automated test strip 09/23/2023 14:34:43 Negative Negative (mg/dL) Final Urobilinogen [Mass/volume] in Urine by Automated test strip 09/23/2023 14:34:43 0.2 0.2, 1.0 (mg/dL) Final Nitrite [Presence] in Urine by Automated test strip 09/23/2023 14:34:43 Negative Negative Final Leukocyte esterase [Presence] in Urine by Automated test strip 09/23/2023 14:34:43 Negative Negative Final RBC, Urine 09/23/2023 14:34:43 0-2 0-2 (/HPF) Final WBC, Urine 09/23/2023 14:34:43 0-2 0-2 (/HPF) Final Bacteria [#/area] in Urine sediment by Microscopy high power field 09/23/2023 14:34:43 0-25 0-25 (/HPF) Final Performing Location [facility] [place] [address]
--- OUTSIDE RECORDS SUMMARY | 2024-02-02 08:59 | External Medical Summary ---
Author Name Unknown Address Unknown Organization K09:[facility] [place] [address] Laboratory Report Ordering Provider Test Date Status CYNTHIAJALENSALBADOR 09/23/2023 14:27:11 Final Observation Date Value Abnormality Reference (Units ) Status Magnesium 09/23/2023 14:27:11 1.9 1.5-2.6 (m g/dL) Final Performing Location [facility] [place] [address]
--- OUTSIDE RECORDS SUMMARY | 2024-02-02 08:59 | External Medical Summary ---
Author Name Unknown Address Unknown Organization K01[place] [place] [facility] [address] [place] [address] Laboratory Report Ordering Provider Test Date Status LISA MARIE 09/23/2023 14:27:11 Final Observation Date Value Abnormality Reference (Units ) Status Parathyrin.intact [Mass/volume] in Serum or Plasma 09/23/2023 14:27:11 102 Above high normal 15-65 (pg/mL) Final Performing Location [facility] [place] [facility] [address] [place] [address]
--- OUTSIDE RECORDS SUMMARY | 2024-02-02 08:59 | External Medical Summary | Summary of Care ---
Author Name Unknown Organization [facility] Address [address] [facility] [place] [address] Phone [phone] Care Team Providers Care Sorting Cows Worker Name Role Phone Scott Weldon MD Primary Care Provider + Reason for Visit * Reason Comments Return Neuro Encounter Details Date Type Department Care Team (Late st Contact Info) Description 09/16/2023 1:20 PM EDT Office Visit Neurology [facility] [address] [facility] [place] [address] Yesenia Wayne PA-C [address] [facility] [place] [address] Psychogenic syncope*; Left-sided weakness; Cerebrovascular disease, arteriosclerotic, post-stroke Allergies Active Allergy Reactions Criticality Noted Date Comments Naproxen Sodium Bleeding High 11/29/2013 Pollen 12/03/2022 Seasonal Food (See Comments) Anaphylaxis High 04/20/2019 Hot peppers (oils) Kiwi Extract Anaphylaxis High 04/20/2019 documented as of this encounter (statuses as of 09/16/2023) Medications Medication Sig Dispensed Refills Start Date [...] Strip 5 02/17/2017 Active Insulin Infusion Pump (MINIM[employer] 630G INSULIN PUMP) KITIndications:Type 2 diabetes mellitus with hemoglobin A1c goal of less than 8.0% ([facility]) Use as directed. 0 07/30/2017 Active [...] suspected opioid overdose. Seek immediate medical attention. [email or web address]?v=v26cDa [email or web address] 1 Each 3 11/27/2022 Active [...] of less than 8.0% ([facility]),DM type 2, not at goal ([facility]) INJECT UP TO 200 UNITS SUBCUTANEOSULY [...] FOR NAUSEA 30 Tablet 0 08/10/2023 Active Buprenorphine 5 MCG/HR Transdermal Patch Weekly (Butrans)Indication s:Controlled substance agreement signed,Chronic bilateral low back pain with sciatica, sciatica laterality unspecified,Chronic pain syndrome Place 1 Patch topically on the skin once a week. 4 Patch 0 08/20/2023 Active metroNIDAZOLE 500 MG Oral Tablet Take [...] the morning. 30 Tablet 5 09/15/2023 Active documented as of this encounter (statuses as of 09/16/2023) Active Problems Problem Noted Date Diagnosed Date [...] as of this encounter (statuses as of 09/16/2023) Resolved Problems Problem Noted Date Diagnosed Date [...] Overview: Per Obesity Taxonomy Coronary atherosclerosis of quileute coronary artery 09/15/2008 10/03/2008 Malaise and fatigue [...] as of this encounter (statuses as of 09/16/2023) Immunizations Name Administration Dates Next Due COVID-19 mRNA, LNP-s, No Pre serve, 2-Dose Series (Pfizer) 11/08/2020,10/11/2020 HEP A - Hepatitis A (Adult > 18 yrs) 04/11/2011, 09/20/2010 Hepatitis B, 20+ yrs 07/05/2015 Pneumococcal Conjugate Vacci ne, 20-valent ([id number]) 03/13/2023 Pneumococcal Polysaccharide PPV23 (Pneumovax) 02/19/2018,03/09/2007 Seasonal [...] Reading Time Taken Comments Blood Pressure 106/62 09/16/2023 1:24 PM EDT Pulse 88 09/16/2023 1:24 PM EDT Temperature 36.2 C (97.2 F) 09/16/2023 1:24 PM ED T Respiratory Rate - - Oxygen Saturation 97% 09/16/2023 1:24 PM EDT Inhaled Oxygen Concentration - - Weight 104 kg (229 lb 3.2 oz) 09/16/2023 1:24 PM EDT Height - - Body Mass Index 37.55 08/20/2023 10:48 AM EDT documented in this encounter Functional [...] as of this encounter Progress Notes * Yesenia Wayne PA-C - 09/16/2023 1:51 PM EDT Consult and H & P - NEUROLOGY Name: Carmen Tyson Date: 09/16/2023 Time: 1:51 PM Referring Provider: Scott Weldon MD Chief Complaint: Chief Complaint Patient presents with Return Neuro This is a 53 year old right handed woman new patient referred to me today for MV license renewal. HPI & Source of HPI The patient was the historian, and she is reliable. She was seen in the past by Dr Briceno for a questionable stroke and seizure. She had a work up and no abnormalities were found and she was not started on AED however she was taking gabapentin for pain issues 300 mg TID which could be used for seizure activity. She was seen at [facility] ED for possible seizure. At home she was walking to her chair and felt light headed she bit her tongue and had incontinence. She states she remembers the ambulance coming to get her and was told her BS and BP were in normal ranges but states she was still confused until she was seen in the ED. A CT head was done andshowed no hematoma or bleed. She has been watched by [facility] for HCC liver CA and she is scheduledto have infusion into the tumor with chemotherapy in February. She was still feels groggy after the seizure and is not sleeping well but admits to a lot of stress with her own health issues along with her mother having a stroke and now in a custodial. She was having a lot of back pain and injections into her muscles for spasm. She was restarted on Ultram by her PCP which may cause decrease in seizure threshold along with Effexor. She was sent to [facility] for 72 hour seizure evaluation and no seizures were found. She was very sick with covid and was found to have a stroke with residual left sided weakness. She as not had an episode for 4 years and would like to go back to driving. Denies CP, SOB, increased one sided weakness, numbness tingling, N, V, vision changes, +chronic left sided weakness, abdominal pain, back spasm. I have reviewed the patient's medications and allergies, past medical, surgical, social and family history, updating these as appropriate. See Histories section of the electronic medical record for adisplay of this information. 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 DONNA on CPAP G47.33 Dyslipidemia, goal LDL below 100 E78.5 Gastroesophageal reflux disease without esophagitis K21.9 HTN, goal below 130/80 I10 Vitamin D deficiency E55.9 Type 2 diabetes mellitus with hemoglobin A1c goal of less than 8.0% ([facility]) E11.9 Psychogenic nonepileptic seizure F44.5 Lumbago with sciatica M54.40 Controlled substance agreement signed Z79.899 Chronic pain syndrome G89.4 Cirrhosis of liver without ascites ([facility]) K74.60 Well adult exam Z00.00 Insulin pump [...] with neurological manifestations (HCC) E11.49 Hyperlipidemia E78.5 Family History Problem Relation Age of Onset [...] Hypertension Brother No Past Hx Sister 15yo Medications: Are you taking your medications? yes Current Outpatient Medications Medication Sig Dispense Refill [...] for suspectedopioid overdose. Seek immediate medical attention. [email or web address]?v=[email or web address] 1 Each 3 Atenolol 100 MG Oral [...] MOUTH EVERYDAY AT BEDTIME 90 Tablet 1 NovoLIN R ReliOn 100 [...] needed for Muscle spasms. 90 Tablet 5 Potassium Chloride ER 10 MEQ Oral Tablet Extended Release TAKE 1 TABLET BY MOUTH TWICE A DAY WITH FOOD 180 Tablet 1 Eszopiclone 2 MG Oral Tablet (Lunesta) Take 1 Tablet by mouth at bedtime. 30 Tablet 1 traZODone HCl 100 MG Oral Tablet (Desyrel) Take 1-2 Tablets by mouth at bedtime. 180 Tablet 1 Ozempic (2 MG/DOSE) 8 MG/3ML Subcutaneous Solution Pen-injector (Semaglutide (2 MG/DOSE)) Take 2 mgweekly E11.9 Ondansetron 8 MG Oral Tablet Disintegrating (Zofran) PLACE 1 TABLET ON TONGUE AND DISSOLVE EVERY 8 HOURS NEEDED FOR NAUSEA 30 Tablet 0 Buprenorphine 5 MCG/HR Transdermal Patch Weekly (Butrans) Place 1 Patch topically on the skin once a week. 4 Patch 0 metroNIDAZOLE 500 MG Oral Tablet Take 1 Tablet by mouth in the morning and 1 Tablet at noon and 1 Tablet before bedtime. Cefdinir 300 MG Oral Capsule (Omnicef) Take 1 Capsule by mouth in the morning and 1 Capsule before bedtime. Escitalopram Oxalate 20 MG Oral Tablet (Lexapro) Take 1 Tablet by mouth in the morning. 90 Tablet 1 Pantoprazole Sodium 40 MG Oral Tablet Delayed Release (Protonix) Take 1 Tablet by mouth in the morning. 90 Tablet 3 Empagliflozin 10 MG Oral Tablet (Jardiance) Take 1 Tablet by mouth in the morning. 30 Tablet 0 hydrOXYzine HCl 25 MG Oral Tablet Take 1 tab during the day every 4-6 hours as needed for anxiety and take 2 tabs at bedtime as needed for anxiety 120 Tablet 1 metFORMIN HCl 1000 MG Oral Tablet (Glucophage) TAKE 1 TABLET BY MOUTH daily Atorvastatin Calcium 40 MG Oral Tablet (Lipitor) TAKE 1 TABLET BY MOUTH EVERY DAY IN THE MORNING 90Tablet 3 Albuterol Sulfate HFA 108 (90 Base) MCG/ACT Inhalation Aerosol Solution INHALE 2 PUFFS BY MOUTH EVERY 6 HOURS NEEDED FOR SHORTNESS OF BREATH 18 g 2 Furosemide 20 MG Oral Tablet (Lasix) Take 1 Tablet by mouth in the morning. 30 Tablet 11 Spironolactone 25 MG Oral Tablet (Aldactone) Take 1 Tablet by mouth in the morning. 30 Tablet 5 No current facility-administered medications for this visit. Review of patient's allergies indicates: Allergen Reactions Aleve [Naproxen Sodium] Bleeding Food (See Comments) Anaphylaxis Hot peppers (oils) Kiwi Extract Anaphylaxis Environmental [Pollen] Seasonal Review of Systems: A total number of 10 systems were reviewed pertinent negative and positives not addressed in HPI are listed in the following review. Physical Exam: Constitutional: BP 106/62 (BP Site: Right Arm, BP Position: Sitting, BP Cuff Size: Regular) | Pulse88 | Temp 36.2 C (97.2 F) (Tympanic) | Wt 104 kg (229 lb 3.2 oz) | SpO2 97% | BMI 37.55 kg/m | BSA 2.19 m , appearance nourished and healthy Ears, Nose, Mouth and Throat: mucous membranes moist, no injection and skin normal, eyes normal Cardiovascular: normal S-1 and S-2 and regular rate and rhythm Respiratory: clear to auscultation (CTA) and no rales, ronchi or wheeze Musculoskeletal: no peripheral edema Skin: normal and intact Eyes: eyes normal and sclera clear, extraocular muscles intact (EOMI), and pupils equal, round and reactive to light (PERRL) NEUROLOGIC EXAMINATION: Mental status: Alert and interactive Oriented to person Speech fluent with no evidence of aphasia Cranial Nerves Normal findings for Cranial Nerves II - XII Coordination: on [id number]-mi-kfiu and no abnormal or extraneous movements Gait/Stance: Posture normal. Gait using cane, left sided dysmetric Motor: Negative for abnormal muscle tone. Strength: Normal - 5/5 all extremities, accept left biceps triceps hand moving worker, hip flex 4/5 LABORATORY: Recent labs reviewed Review of prior Studies: No recent imaging available. Impression: Carmen Tyson is a 53 year old woman with a history of psychogenic seizures and stroke. Her neurologic examination today reveals no new focal deficit. The history and examination are suggestive of diagnosis/problem list. Testing and Referrals ordered: none ICD-10-CM 1. Psychogenic syncope F48.8 2. Left-sided weakness R53.1 3. Cerebrovascular disease, arteriosclerotic, post-stroke I67.2 Z86.73 Return as needed Toribio Dot form filled out scanned and returned to patient Once return to driving small trips with someone in the car to practise Continue to optimize HTN HDL, LDL <70 Continue aspirin 81 mg for life if no contraindiction Fall precautions PCP for medical management 8. Call with questions or concerns. Medical Decision Making (determined by lowest of 2 of 3 elements): The medical decision making element of the number and complexity of problems addressed included at least 2 or more stable chronic illnesses (level 4). The medical decision making element of risk of complications, morbidity, and mortality of patient management is moderate (level 4) due to prescription drug management (moderate risk). The medical decision making element of the amount and complexity of data reviewed and analyzed included an independent interpretation of a test (level 4 at least). When 2 of 3 reach level 4, then this element is considered extensive (level 5). I personally spent a total of 30 minutes. This time was the total spent on the evaluation, interpretation, and documentation. Education / Consultation - Topics covered as I spent 30 minutes, which is greater than 50% of this visit, counseling the patient on: Diagnostic Results Prognosis Importance of compliance with chosen treatment options Risk factor reductions Patient and family education Consulted with physician: Alex Reyna DO was available for direct supervision. Copy of note sent to PCP and Referring Provider. Total time of visit: 40 minutes. Yesenia Wayne PA-C Neurology [address] [place] [address] 09/16/2023 1:51 PM documented in this encounter Nursing Notes * Amy Mejia LPN - 09/16/2023 1:24 PM EDT Chief Complaint Patient presents with Return Neuro Would like to discuss getting license back documented in this encounter Plan of Treatment Upcoming Encounters Date Type Department Care Team (Late st Contact Info) Description 09/23/2023 2:00 PM EDT Immunization/Injecti on Hematology/Oncolog y Treatment, [place] [facility] [id number] Nurse, Med [address] [place] [address] [place] [address] 09/30/2023 9:00 AM EDT [facility] [place] [address] [facility] [address] [facility] [address] [facility] [address] 10/05/2023 8:00 AM EDT Hospital Encounter ENDO [facility], Endoscopy Room [facility] [address] [place], [place] [phone] Aj Pruett, DO [address] [place] [address] 10/05/2023 8:00 AM EDT - 10/05/2023 9:00 AM EDT Surgery [facility], Endoscopy Room [facility] [address] [place] [phone] Aj Pruett, DO [address] [place] [address] COLONOSCOPY [facility]OXIMAL DIAGNOSTIC 10/05/2023 12:00 PM EDT Telemedicine Psychiatry, [address] [place] [address] Rj Mai MD [address] [place] [address] 10/12/2023 2:30 PM EDT Office Visit General Surgery, [facility] [address] [place] [address] Mariano Billingsley MD [address] [place] [address] 11/05/2023 1:00 PM EDT Telemedicine Pharmacy, [facility] [address] [place] [address] [facility] [address] [place] [address] 11/24/2023 9:20 AM EDT Office Visit Sleep Disorders Ctr [facility] [address] [place] [phone] Lakisha Murcia, DO [address] [place] [address] 11/25/2023 2:20 PM EDT Office Visit [facility] [address] [facility] [place] [address] Scott Weldon MD [address] [facility] [place] [address] 02/09/2024 8:00 AM EDT Telemedicine Gastroenterology, [facility] [address] [place] [address] Charlee Fields MD [address] [place] [address] 02/24/2024 2:15 PM EDT Office Visit Hematology/Oncolog y [facility] [address] [place] [phone] Sunil Bourgeois MD [address] [place] [address] 03/16/2024 12:20 PM EDT Office Visit [facility] [address] [facility] [place] [address] Scott Weldon MD [address] [facility] [place] [address] 03/24/2024 12:30 PM EDT Office Visit Ophthalmology, [facility] [address] [facility] [place] [address] Rolan Self, DO [address] [facility] [place] [address] Scheduled Procedures Name Priority Associated Diagnoses Date/Ti [...] 04/12/2018 04/12/2015, 10/2014, 09/28/2008, Additional history exists COLONOSCOPY-EVERY 5 YRS AGES 18-100 06/27/2020 06/27/2015, [...] 09/07/2024 09/08/2023, 08/07, 08/20/2023, Additional history exists Lipid Panel 07/23/2028 07/23/2023, [...] this encounter Medical Devices Implanted Type Area Military Analyst Device Identifier Shelf Expiration Date Model / Serial / Lot Neurostimul Intellis Adaptiv - [id number] - [id number] Implanted:Qty: 1 on 08/22/2022 by Rafia Small MD at OR [facility] N/A: Spine Lumbar [employer] 06/21/2023 [id number] / [id number] / Description:battery Medtronic Lead Kit 60 Cm Implanted:Qty: 1 on 08/22/2022 by Rafia Small MD at OR [facility] N/A: Spine Lumbar 02/01/2026 [id number] / / [id number] Medtronic Lead Kit 60cm Implanted:Qty: 1 on 08/22/2022 by Rafia Small MD at OR [facility] N/A: Spine Lumbar 03/21/2026 [id number] / / [id number] Envelope Tyrx Med Antibacteril - [id number] Implanted:Qty: 1 on 08/22/2022 by Rafia Small MD at OR [facility] N/A: Spine Lumbar [employer] 03/10/2023 [id number] / / [id number] documented as of this encounter Visit Diagnoses Diagnosis Psychogenic syncope- Primary Other somatoform disorders Left-sided weakness Muscle weakness (generalized) Cerebrovascular disease, arteriosclerotic, post-stroke Cerebral atherosclerosis Colon cancer screening Special screening for malignant [...] the patient have Health Care Power of Him Director? No Code Status History Code Status Date Activated Date Inactivated Comments Full Code 01/21/2011 12:12 PM 01/22/2011 8:48 PM This order reflects the patients wishes and were consensually agreed upon. Question Answer Comments Discussion of Advance Directives occurred with: Patient Does the patient have a Living Will? No Does the patient have Health Care Power of Him Director? No Care Teams Sorting Cows Worker Relationship Specialty Start Date End Date Scott Weldon MD [address] [place] [address] PCP - General Family Medicine 08/03/18 documented as of this encounter"
--- OUTSIDE RECORDS SUMMARY | 2024-02-02 08:59 | External Medical Summary ---
Author Name Unknown Address Unknown Organization K01:[facility] [place] [address] [place] [address] Laboratory Report Ordering Provider Test Date Status LUIS ANTONIO LEIVA 09/23/2023 14:27:11 Final Observation Date Value Abnormality Reference (Units ) Status Iron 09/23/2023 14:27:11 68 33-151 (ug /dL) Final Iron-binding capacity 09/23/2023 14:27:11 297 250-425 (ug/dL) Final Transferrin Sat % 09/23/2023 14:27:11 23 15 -55 (%) Final Performing Location [facility] [place] [address] [place] [address]
--- OUTSIDE RECORDS SUMMARY | 2024-02-02 08:59 | External Medical Summary | Summary of Care ---
Author Name Unknown Organization [facility] Address [address] [facility] [place] [address] Phone [phone] Care Team Providers Care Career Development Consultant Name Role Phone Scott Weldon MD Primary Care Provider + Reason for Visit * Reason Comments Procedure Port flush w/labs Encounter Details Date Type Department Care Team (Late st Contact Info) Description 09/23/2023 2:00 PM EDT Immunization/I njection Hematology/Oncology Treatment, [place] [address] [place] [address] Nurse, Med [address] [place] [phone] Encounter for care related to vascular access port*; Encounter for venous access device care; Iron deficiency anemia, unspecified iron deficiency anemia type; DM type 2, not at goal ([facility]); Stage 3b chronic kidney disease ([facility]) Allergies Active Allergy Reactions Criticality Noted Date Comments Naproxen Sodium Bleeding High 11/29/2013 Pollen 12/03/2022 Seasonal Food (See Comments) Anaphylaxis High 04/20/2019 Hot peppers (oils) Kiwi Extract Anaphylaxis High 04/20/2019 documented as of this encounter (statuses as of 09/23/2023) Medications Medication Sig Dispensed Refills Start Date End Date Status ONETOUCH ULTRASOFT LANCETS MISCIndications:DM type 2, not at goal ([facility]) check FS 6 times daily 4 Box [...] Strip 5 7 Active Insulin Infusion Pump (MINIMConfide 630G INSULIN PUMP) KITIndications:Type 2 diabetes mellitus with hemoglobin A1c goal of less than 8.0% ([facility]) Use as directed. 0 8 Active CPAP [...] overdose. Seek immediate medical attention. [email or web address]/[email or web address]?v=[email or web address] 1 Each 3 3 Active Atenolol 100 [...] goal of less than 8.0% ([facility]),DM type 2, not at goal ([facility]) INJECT UP TO 200 UNITS SUBCUTANEOSULY ONCE [...] a week. 4 Patch 0 4 Active metFORMIN HCl 1000 MG Oral Tablet (Glucophage)Indicat ions:DM type 2, not at goal (HCC) TAKE 1 TABLET BY MOUTH daily 0 4 09/23/19 24 Discontinu ed(End of Procedure) documented as of this encounter (statuses as [...] Overview: Per Obesity Taxonomy Coronary atherosclerosis of [place] coronary artery 09/15/2008 10/03/2008 Malaise and fatigue [...] mRNA, LNP-s, No Pre serve, 2-Dose Series (WellTek) 11/08/2020,10/11/2020 HEP A - Hepatitis A (Adult > 18 yrs) 04/11/2011, 09/20/2010 Hepatitis B, 20+ yrs 07/05/2015 Pneumococcal Conjugate Vacci ne, 20-valent ([id number]) 03/13/2023 Pneumococcal Polysaccharide PPV23 (Pneumovax) 02/19/2018,03/09/2007 Seasonal [...] as of this encounter Nursing Notes * Gabi Evans, RN - 09/23/2023 2:53 PM EDT Chair 7, port flush, labs from port. VAD (Venous Access Device) accessed with #20G 1" without difficulty. Specimen collected for ordered labs. VAD flushed with 10 ml NSS and Heparin 5 ml (100 units/ml). Powell needle removed intact. documented in this encounter Plan of Treatment Upcoming Encounters Date Type Department Care Team (Late st Contact Info) Description 09/30/2023 9:00 AM EDT Office Visit Pharmacy, [place] [address] [facility] [address] [place], [facility] [address] [facility] [address] 10/05/2023 8:00 AM EDT Hospital Encounter ENDO OSSC, Endoscopy Room [facility] [address] [place] [phone] Aj Pruett, DO [address] [place] [address] 10/05/2023 8:00 AM EDT - 10/05/2023 9:00 AM EDT Surgery ENDO [facility], Endoscopy Room [facility] [address] [place] [address] Aj Pruett, DO [address] [place] [address] COLONOSCOPY FLEXIBLE PROXIMAL DIAGNOSTIC 10/05/2023 12:00 PM EDT Telemedicine Psychiatry, [facility] 200 [facility] [place] [address] Rj Mai MD [address] [place] [address] 10/12/2023 2:30 PM EDT Office Visit General Surgery, [facility] [address] [place] [address] Mariano Billingsley MD [address] [place] [address] 11/04/2023 1:30 PM EDT Immunization/Injecti on Hematology/Oncolog y Treatment, [place] 200 [facility] [phone] Nurse, Med 200 [facility] [place] [address] 11/05/2023 1:00 PM EDT Telemedicine Pharmacy, [facility] [address] [place] [address] [place] [facility] [place] [address] 11/24/2023 9:20 AM EDT Office Visit Sleep Disorders Ctr [facility] [address] [facility] [employer] [place] [address] Lakisha Murcia, DO 132 [facility] [place] [address] 11/25/2023 2:20 PM EDT Office Visit [facility] 132 [facility] [place] [address] Scott Weldon MD 132 [facility] [place] [address] 02/09/2024 8:00 AM EDT Telemedicine Gastroenterology, [facility] [address] [place] [address] Charlee Fields MD [address] [place] [address] 02/24/2024 2:15 PM EDT Office Visit Hematology/Oncolog y [facility] [address] [place] [phone] Sunil Bourgeois MD [address] [facility] [place] [address] 03/16/2024 12:20 PM EDT Office Visit [facility] 132 [facility] [place] [address] Scott Weldon MD 132 [facility] [place] [address] 03/24/2024 12:30 PM EDT Office Visit Ophthalmology, [facility] 132 [facility] [place] [address] Rolan Self, DO 21 [facility] [place] [address] 06/03/2024 10:40 AM EST Office Visit Nephrology, [place] [address] [place] [address] Jonathan Mathew MD [address] [address] Pending Results Name Type Priority Associated Diagnoses Date /Time FERRITIN Lab STAT Iron deficiency anemia, unspecified iron deficiency anemia type 09/23/2023 2:27 PM EDT IRON SCREEN, INCLUDING TIBC Lab STAT Iron deficiency anemia, unspecified iron deficiency anemia type 09/23/2023 2:27 PM EDT PTH Lab Routine Stage 3b chronic kidney disease (HCC) 09/23/2023 2:27 PM EDT 25-HYDROXY VITAMIN D Lab Routine Stage 3b chronic kidney disease (HCC) 09/23/2023 2:27 PM EDT Scheduled Procedures Name Priority Associated [...] this encounter Medical Devices Implanted Type Area Rigger Chief Device Identifier Shelf Expiration Date Model / Serial / Lot Neurostimul Intellis Adaptiv - [id number] - [id number] Implanted:Qty: 1 on 08/22/2022 by Rafia Small MD at OR [facility] N/A: Spine Lumbar [employer] 06/21/2023 [id number] / [id number] / Description:battery Medtronic Lead Kit 60 Cm Implanted:Qty: 1 on 08/22/2022 by Rafia Small MD at OR [facility] N/A: Spine Lumbar 02/01/2026 [id number] / / [id number] Medtronic Lead Kit 60cm Implanted:Qty: 1 on 08/22/2022 by Rafia Small MD at OR [facility] N/A: Spine Lumbar 03/21/2026 [id number] / / [id number] Envelope Tyrx Med Antibacteril - [id number] Implanted:Qty: 1 on 08/22/2022 by Rafia Small MD at OR [facility] N/A: Spine Lumbar [employer] 03/10/2023 [id number] / / [id number] documented as of this encounter Procedures Procedure Name Priority Date/Time Associated Diagnosis Comments DIFFERENTIAL, AUTOMATED STAT 09/23/2023 2:27 PM EDT Iron deficiency anemia, unspecified iron deficiency anemia type BASIC METABOLIC PANEL Routine 09/23/2023 2:27 PM EDT DM type 2, not at goal (HCC) CBC STAT 09/23/2023 2:27 PM EDT Iron deficiency anemia, unspecified iron deficiency anemia type CBC STAT 09/23/2023 2:27 PM EDT Iron deficiency anemia, unspecified iron deficiency anemia type DIFFERENTIAL, TECHNOLOGIST REVIEW Routine 09/23/2023 2:27 PM EDT Iron deficiency anemia, unspecified iron deficiency anemia type MAGNESIUM Routine 09/23/2023 2:27 PM EDT Stage 3b chronic kidney disease (HCC) documented in this encounter Results * DIFFERENTIAL, TECHNOLOGIST REVIEW (09/23/2023 2:27 PM EDT) Pathologist [facility] nRBCs 09/23/2023 2:38 PM EDT [facility] 56- Blood Venous blood specimen / Unknown Central Line / Unknown 09/23/2023 2:27 PM EDT 09/23/2023 2:31 PM EDT Sunil Bourgeois MD LAB BLOOD ORDERABLES [facility] 56- [address] [place] [address] * DIFFERENTIAL, AUTOMATED (09/23/2023 2:27 PM EDT) [facility] [place] WBC 6.96 4.00 - 10.80 K/uL 09/23/2023 2:38 PM EDT [facility] 56-02 Neutrophils % 69.7 40.0 - 75.0 % 09/23/2023 2:38 PM EDT [facility] 56-02 Lymphocytes % 19.1 18.0 - 42.0 % 09/23/2023 2:38 PM EDT [facility] 56-02 Monocytes % 7.9 1.0 - 11.0 % 09/23/2023 2:38 PM EDT [facility] 56-02 Eosinophils % 2.9 0.0 - 6.0 % 09/23/2023 2:38 PM EDT [facility] 56-02 Basophils % 0.4 0.0 - 2.0 % 09/23/2023 2:38 PM EDT [facility] 56-02 Absolute Neutrophils 4.85 1.80 - 7.70 K/uL 09/23/2023 2:38 PM EDT [facility] 56-02 Absolute Lymphocytes 1.33 1.00 - 4.80 K/ul 09/23/2023 2:38 PM EDT [facility] 56-02 Absolute Monocytes 0.55 0.00 - 1.10 K/uL 09/23/2023 2:38 PM EDT [facility] 56-02 Absolute Eosinophils 0.20 0.00 - 0.70 K/uL 09/23/2023 2:38 PM EDT [facility] 56-02 Absolute Basophils 0.03 0.00 - 0.20 K/uL 09/23/2023 2:38 PM EDT [facility] 56-02 Blood Venous blood specimen / Unknown Central Line / Unknown 09/23/2023 2:27 PM EDT 09/23/2023 2:31 PM EDT Sunil Bourgeois MD LAB BLOOD ORDERABLES [facility] 56-[address] [place] [address] * (ABNORMAL) CBC (09/23/2023 2:27 PM EDT) WBC 6.96 4.00 - 10.80 K/uL 09/23/2023 2:38 PM EDT [facility] 56 RBC 4.05 3.85 - 5.15 M/uL 09/23/2023 2:38 PM EDT [facility] 56 HGB 11.4(L) 12.0 - 15.3 g/dL 09/23/2023 2:38 PM EDT [facility] 56 HCT 35.5(L) 36.0 - 45.2 % 09/23/2023 2:38 PM EDT [facility] 56 MCV 87.7 81.5 - 97.5 fL 09/23/2023 2:38 PM EDT [facility] 56 MCH 28.1 27.0 - 34.0 pg 09/23/2023 2:38 PM EDT [facility] 56 MCHC 32.1 32.0 - 36.0 g/dL 09/23/2023 2:38 PM EDT [facility] 56 RDW 15.6 11.5 - 15.5 % 09/23/2023 2:38 PM EDT [facility] 56 PLT 89(L) 140 - 400 K/uL 09/23/2023 2:38 PM EDT [facility] 56 MPV 9.8 6.6 - 11.1 fL 09/23/2023 2:38 PM EDT [facility] 56 Blood Venous blood specimen / Unknown Central Line / Unknown 09/23/2023 2:27 PM EDT 09/23/2023 2:31 PM EDT Sunil Bourgeois MD LAB BLOOD ORDERABLES [facility] [address] [place] [address] * MAGNESIUM (09/23/2023 2:27 PM EDT) Magnesium 1.9 1.5 - 2.6 mg/dL 09/23/2023 2:55 PM EDT [facility] 56 Blood Venous blood specimen / Unknown Central Line / Unknown 09/23/2023 2:27 PM EDT 09/23/2023 2:30 PM EDT Jonathan Mathew MD LAB BLOOD ORDERABLES [facility] 200 [facility] [place] [id number] * (ABNORMAL) BASIC METABOLIC PANEL (09/23/2023 2:27 PM EDT) BUN 29(H) 6 - 20 mg/dL 09/23/2023 2:55 PM EDT [facility] 56 Creatinine 2.1(H) 0.5 - 1.0 mg/dL 09/23/2023 2:55 PM EDT [facility] 56 Estimated Glomerular Filtration Rate 28(L) >=60 mL/min 09/23/2023 2:55 PM EDT [facility] 56 Comment:eGFR is calculated b ased on the CKD-EPI 2020 equation Sodium 141 135 - 146 mmol/L 09/23/2023 2:55 PM EDT [facility] 56 Potassium 4.4 3.5 - 5.1 mmol/L 09/23/2023 2:55 PM EDT [facility] 56- Chloride 103 98 - 107 mmol/L 09/23/2023 2:55 PM EDT [facility] 56 CO2 26 22 - 32 mmol/L 09/23/2023 2:55 PM EDT [facility] 56 Anion Gap 12 7 - 15 mmol/L 09/23/2023 2:55 PM EDT [facility] 56 Glucose 102 70 - 120 mg/dL 09/23/2023 2:55 PM EDT [facility] 56 Calcium 8.9 8.4 - 10.2 mg/dL 09/23/2023 2:55 PM EDT [facility] 56 Blood Venous blood specimen / Unknown Central Line / Unknown 09/23/2023 2:27 PM EDT 09/23/2023 2:30 PM EDT [facility] LAB BLOOD OR DERABLES [facility] [address] [facility] [address] documented in this encounter Visit Diagnoses Diagnosis Encounter for care related to vascular access port- Primary Fitting and adjustment of vascular catheter Encounter for venous access device care Fitting and adjustment of vascular catheter Iron deficiency anemia, unspecified iron deficiency anemia type DM type 2, not at goal (HCC) Type II or unspecified type diabetes mellitus without mention of complication, not stated as uncontrolled Stage 3b chronic kidney disease (HCC) Colon cancer screening Special screening for malignant neoplasms, colon Hematemesis without nausea BRBPR (bright red blood per rectum) Hemorrhage of rectum and anus documented in this encounter Administered Medications Active Administered Medications - up to 3 most recent administrations Medication Order MAR Action Action Date Dose Rate Site hEParin 100 UNIT/ML Lock Flush inj 500 Units 500 Units (5 mL), IV Lock, PRN Other, IV Flush, Starting on Thu09/23/23 at 1423, Until Coreen 09/24/23 at 1422, For 24 hours, Do not flush if lock, PICC, or central line not in place; IV infusing or unable to flush. Given 09/23/2023 2:24 PM EDT 500 Units sodium chloride 0.9 % flush central line 10 mL 10 mL, IV Push, PRN Other, IV Flush, Starting on Thu09/23/23 at 1423, Until Coreen 09/24/23 at 1422, For 24 hours, Do not flush if lock, PICC, or central line not in place; IV infusing or unable to flush. Given 09/23/2023 2:24 PM EDT 20 mL documented in this encounter Advance Directives [...] the patient have Health Care Power of Special Loan Officer? No Code Status History Code Status Date Activated Date Inactivated Comments Full Code 01/21/2011 12:12 PM 01/22/2011 8:48 PM This order reflects the patients wishes and were consensually agreed upon. Question Answer Comments Discussion of Advance Directives occurred with: Patient Does the patient have a Living Will? No Does the patient have Health Care Power of Special Loan Officer? No Care Teams Career Development Consultant Relationship Specialty Start Date End Date Scott Weldon MD [address] [place] [address] PCP - General Family Medicine 08/03/18 documented as of this encounter
--- OUTSIDE RECORDS SUMMARY | 2024-02-02 09:00 | External Medical Summary | Summary of Care ---
Author Name Unknown Organization [facility] Address [address] [facility] [place] [address] Phone [phone] Care Team Providers Care Music Journalist Name Role Phone Scott Weldon MD Primary Care Provider + Reason for Visit * Reason Onset Date Comments Forms Request 09/15/2023 Brooke Nordisk for m-Novolin & Ozempic Encounter Details Date Type Department Care Team (Late st Contact Info) Description 09/15/2023 Telephone Family Practice [facility] 132 [facility] [place] [address] Scott Weldon MD [address] [place] [address] Forms Request (Brooke Nordisk form-Novolin &... Allergies Active Allergy Reactions Criticality Noted Date Comments Naproxen Sodium Bleeding High 11/29/2013 Pollen 12/03/2022 Seasonal Food (See Comments) Anaphylaxis High 04/20/2019 Hot peppers (oils) Kiwi Extract Anaphylaxis High 04/20/2019 documented as of this encounter (statuses as of 09/15/2023) Medications Medication Sig Dispensed Refills Start Date [...] Strip 5 02/17/2017 Active Insulin Infusion Pump (MINIMTranserv 630G INSULIN PUMP) KITIndications:Type 2 diabetes mellitus [...] WITH FOOD 180 Tablet 1 07/17/2023 Active Albuterol Sulfate HFA 108 (90 Base) MCG/ACT Inhalation Aerosol Solution INHALE 2 PUFFS BY MOUTH EVERY 6 HOURS NEEDED FOR SHORTNESS OF BREATH 18 g 2 07/17/2023 Active Eszopiclone 2 MG Oral Tablet [...] THE MORNING 90 Tablet 3 09/14/2023 Active Furosemide 20 MG Oral Tablet (Lasix) Take 1 Tablet by mouth in the morning. 30 Tablet 11 09/15/2023 Active Spironolactone 25 MG Oral Tablet (Aldactone) Take 1 Tablet by mouth in the morning. 30 Tablet 5 09/15/2023 Active documented as of this encounter (statuses as of 09/15/2023) Active Problems Problem Noted Date Diagnosed Date [...] as of this encounter (statuses as of 09/15/2023) Resolved Problems Problem Noted Date Diagnosed Date [...] Overview: Per Obesity Taxonomy Coronary atherosclerosis of [place] coronary artery 09/15/2008 10/03/2008 Malaise and fatigue [...] as of this encounter (statuses as of 09/15/2023) Immunizations Name Administration Dates Next Due COVID-19 mRNA, LNP-s, No Pre serve, 2-Dose Series (TBi Connect) 11/08/2020,10/11/2020 HEP A - Hepatitis A (Adult > 18 yrs) 04/11/2011, 09/20/2010 Hepatitis B, 20+ yrs 07/05/2015 Pneumococcal Conjugate Vacci ne, 20-valent ([id number]) 03/13/2023 Pneumococcal Polysaccharide PPV23 (Pneumovax) 02/19/2018,03/09/2007 Seasonal [...] Telephone Encounter - Kathie Soares LPN - 09/15/2023 7:21 PM EDT Form completed and faxed back with confirmation receipt. * Telephone Encounter - Kathie Soares LPN - 09/15/2023 11:05 AM EDT Received form from Brooke nordisk assistance program for continuation. Form completed for Novolin ANDOzempic. Form placed in PCP mailbox for signature. documented in this encounter Plan of Treatment Upcoming Encounters Date Type Department Care Team (Late st Contact Info) Description 09/16/2023 1:20 PM EDT Office Visit Neurology [facility] [place] [address] [address] Yesenia [place] PA-C [address] [address] 09/23/2023 2:00 PM EDT Immunization/Injecti on Hematology/Oncolog y Treatment, [place] 200 [facility] [phone] Nurse, Med 200 [facility] [place] [address] 09/30/2023 9:00 AM EDT Office Visit Pharmacy, [place] [address] [facility] [place] [address] [facility] [address] [facility], [place] [address] 10/05/2023 8:00 AM EDT Hospital Encounter ENDO OSS, Endoscopy Room [facility] [address] [place] [phone] Aj Pruett, DO [address] [place] [address] 10/05/2023 8:00 AM EDT - 10/05/2023 9:00 AM EDT Surgery ENDO [facility], Endoscopy Room [facility] [address] [place] [phone] Aj Pruett, DO [address] [place] [address] COLONOSCOPY FLEXIBLE PROXIMAL DIAGNOSTIC 10/05/2023 12:00 PM EDT Telemedicine Psychiatry, [facility] 200 [facility] [place] [address] Rj Mai MD [address] [place] [facility] [place] [address] 10/12/2023 2:30 PM EDT Office Visit General Surgery, [facility] [address] [place] [address] Mariano Billingsley MD [address] [place] [address] 11/05/2023 1:00 PM EDT Telemedicine Pharmacy, [facility] 132 [facility] [place] [address] [facility] Keith [address] [place], [place] [address] 11/24/2023 9:20 AM EDT [facility] 132 [facility] [place] [phone] Lakisha Murcia DO [address] [place] [address] 11/25/2023 2:20 PM EDT Office Visit [facility] [place] [address] Scott Weldon MD [address] [facility] [place] [address] 02/09/2024 8:00 AM EDT Telemedicine Gastroenterology, [address] [phone] Charlee Fields MD [address] [place] [address] 02/24/2024 2:15 PM EDT Office Visit Hematology/Oncolog y [facility] [place] [address] [place], [place] [phone] Sunil Bourgeois MD [address] [place] [address] 03/16/2024 12:20 PM EDT Office Visit [facility] [address] [place] [address] Scott Weldon MD 132 [facility] [place] [address] 03/24/2024 12:30 PM EDT Office Visit Ophthalmology, [facility] [address] [place] [address] Rolan Self, DO [address] [place] [address] Scheduled Procedures Name Priority Associated Diagnoses Date/Ti [...] this encounter Medical Devices Implanted Type Area Surgical Instrument Mechanic Device Identifier Shelf Expiration Date Model / Serial / Lot Neurostimul Intellis Adaptiv - [id number] - [id number] Implanted:Qty: 1 on 08/22/2022 by Rafia Small MD at OR [facility] N/A: Spine Lumbar [employer] 06/21/2023 [id number] / [id number] / Description:battery Medtronic Lead Kit 60 Cm Implanted:Qty: 1 on 08/22/2022 by Rafia Small MD at OR [facility] N/A: Spine Lumbar 02/01/2026 [id number] / / [id number] Medtronic Lead Kit 60cm Implanted:Qty: 1 on 08/22/2022 by Rafia Small MD at OR [facility] N/A: Spine Lumbar 03/21/2026 [id number] / / [id number] Envelope Tyrx Med Antibacteril - [id number] Implanted:Qty: 1 on 08/22/2022 by Rafia Small MD at OR [facility] N/A: Spine Lumbar [employer] 03/10/2023 [id number] / / [id number] documented as of this encounter Advance Directives [...] the patient have Health Care Power of Linux System Administrator? No Code Status History Code Status Date Activated Date Inactivated Comments Full Code 01/21/2011 12:12 PM 01/22/2011 8:48 PM This order reflects the patients wishes and were consensually agreed upon. Question Answer Comments Discussion of Advance Directives occurred with: Patient Does the patient have a Living Will? No Does the patient have Health Care Power of Linux System Administrator? No Care Teams Music Journalist Relationship Specialty Start Date End Date Scott Weldon MD 132 [facility] [place] [address] PCP - General Family Medicine 08/03/18 documented as of this encounter
--- OUTSIDE RECORDS SUMMARY | 2024-02-02 09:00 | External Medical Summary | Summary of Care ---
Author Name Unknown Organization [facility] Address [address] [facility] [place] [address] Phone [phone] Care Team Providers Care Real Estate Broker Associate Name Role Phone Scott Montoya MD Primary Care Provider + Reason for Visit * Reason Comments eRx-Medication Refill Encounter Details Date Type Department Care Team (Late st Contact Info) Description 09/14/2023 Refill Family Practice [facility] [address] [facility] [place] [address] Scott Montoya MD [address] [facility] [place] [address] Allergies Active Allergy Reactions Criticality Noted Date [...] 5 02/18/20 17 Active Insulin Infusion Pump (MINIMWallstr 630G INSULIN PUMP) KITIndications:Typ e 2 diabetes mellitus with hemoglobin A1c goal of less than 8.0% ([facility]) Use as directed. 0 07/30/19 18 Active [...] suspected opioid overdose. Seek immediate medical attention. [email or web address] 1 Each 3 11/28/19 23 Active Atenolol [...] BEDTIME 90 Tablet 1 04/17/20 23 Active NovoLIN [...] FOOD 180 Tablet 1 07/17/19 24 Active Eszopiclone 2 MG Oral Tablet [...] NAUSEA 30 Tablet 0 08/10/19 24 Active Buprenorphine 5 MCG/HR Transdermal Patch Weekly (Butrans)Indicatio ns:Controlled substance agreement signed,Chronic bilateral low back pain with sciatica, sciatica laterality unspecified,Chroni c pain syndrome Place 1 Patch topically on the skin once a week. 4 Patch 0 08/20/19 24 Active metroNIDAZOLE 500 MG Oral Tablet Take [...] morning. 90 Tablet 3 09/01/19 24 Active Empagliflozin 10 MG Oral Tablet (Jardiance)Indicat ions:Type 2 diabetes mellitus with hemoglobin A1c goal of less than 8.0% (HCC) Take 1 Tablet by mouth in the morning. 30 Tablet 0 09/02/19 24 Active hydrOXYzine HCl 25 MG Oral Tablet Take 1 tab during the day every 4-6 hours as needed for anxiety and take 2 tabs at bedtime as needed for anxiety 120 Tablet 1 09/09/19 24 Active metFORMIN HCl 1000 MG Oral Tablet (Glucophage)Indica tions:DM type 2, not at goal (HCC) TAKE 1 TABLET BY MOUTH daily 0 09/09/19 24 Active Atorvastatin Calcium 40 MG Oral Tablet (Lipitor)Indicatio ns:Dyslipidemia, goal LDL below 100 TAKE 1 TABLET BY MOUTH EVERY DAY IN THE MORNING 90 Tablet 3 09/14/19 24 Active Albuterol Sulfate HFA 108 (90 Base) MCG/ACT Inhalation Aerosol Solution INHALE 2 PUFFS BY MOUTH EVERY 6 HOURS NEEDED FOR SHORTNESS OF BREATH 18 g 2 09/16/19 24 Active Albuterol Sulfate HFA 108 (90 Base) MCG/ACT Inhalation Aerosol Solution INHALE 2 PUFFS BY MOUTH EVERY 6 HOURS NEEDED FOR SHORTNESS OF BREATH 18 g 2 07/17/19 24 024 Discontinued documented as [...] Overview: Per Obesity Taxonomy Coronary atherosclerosis of [place] coronary artery 09/15/2008 10/03/2008 Malaise and fatigue [...] mRNA, LNP-s, No Pre serve, 2-Dose Series ([employer]) 11/08/2020,10/11/2020 HEP A - Hepatitis A (Adult > 18 yrs) 04/11/2011, 09/20/2010 Hepatitis B, 20+ yrs 07/05/2015 Pneumococcal Conjugate Vacci ne, 20-valent ([id number]) 03/13/2023 Pneumococcal Polysaccharide PPV23 (Pneumovax) 02/19/2018,03/09/2007 Seasonal [...] encounter Miscellaneous Notes * Telephone Encounter - Tam Malone RPh - 09/16/2023 6:03 AM EDTSigned Prescriptions: Disp Refills Albuterol Sulfate HFA 108 (90 Base) MCG/AC*18 g 2 Sig: INHALE 2 PUFFS BY MOUTH EVERY 6 HOURS NEEDED FOR SHORTNESS OF BREATHAuthorizing Provider: SCOTT MONTOYA User: TAM MALONE documented in this encounter Plan of Treatment Upcoming Encounters Date Type Department Care Team (Late st Contact Info) Description 09/16/2023 1:20 PM EDT Office Visit Neurology [facility] [place] [address] [phone] Yesenia Wayne PA-C [address] [phone] 09/23/2023 2:00 PM EDT Immunization/Injecti on Hematology/Oncolog y Treatment, [place] [address] [phone] Nurse, Med 4 [address] [facility] [place] [address] 09/30/2023 9:00 AM EDT Office Visit Pharmacy, [place] [address] [place] [facility] [address] [facility] [address] [place] [facility] [place] [address] 10/05/2023 8:00 AM EDT Hospital Encounter ENDO [facility], Endoscopy Room [facility] [address] [place] [phone] Aj Pruett, DO [address] [place] [address] 10/05/2023 8:00 AM EDT - 10/05/2023 9:00 AM EDT Surgery ENDO [facility], Endoscopy Room [facility] [address] [place] [phone] Aj Pruett, DO [address] [place] [address] COLONOSCOPY FLEXIBLE PROXIMAL DIAGNOSTIC 10/05/2023 12:00 PM EDT Telemedicine Psychiatry, [facility] [address] [facility] [place] [address] Rj Mai MD [address] [place] [address] 10/12/2023 2:30 PM EDT Office Visit General Surgery, [facility] [address] [place] [address] Mariano Billingsley MD [address] [place] [address] 11/05/2023 1:00 PM EDT Telemedicine Pharmacy, [facility] [address] [place], [place] [address] [facility] [address] [place], [place] [address] 11/24/2023 9:20 AM EDT Office Visit Sleep Disorders Ctr [place], [place] [address] [facility] [place] [place], [place] [phone] Lakisha Murcia DO [address] [place] [address] 11/25/2023 2:20 PM EDT [facility] [place] [address] Scott Montoya MD [address] [place] [address] 02/09/2024 8:00 AM EDT Telemedicine Gastroenterology, [address] [address] Charlee Fields MD [address] [place] [address] 02/24/2024 2:15 PM EDT Office Visit Hematology/Oncolog y Roney Mel[place] [address] [place] [phone] Sunil Bourgeois MD [address] [place] [address] 03/16/2024 12:20 PM EDT Office [facility] [address] [facility] [place] [address] Scott Montoya MD [address] [place] [address] 03/24/2024 12:30 PM EDT [facility] [address] [facility] [place] [address] Rolan Self, DO [address] [facility] [place] [address] Scheduled Procedures Name Priority Associated Diagnoses Date/Ti [...] COVID-19 Vaccine (2022- season) 2023 11/08/2020, 10/11/2020 Zoster Vaccines (2 [...] this encounter Medical Devices Implanted Type Area Ui Ux Developer Device Identifier Shelf Expiration Date Model / Serial / Lot Neurostimul Intellis Adaptiv - [id number] - [id number] Implanted:Qty: 1 on 08/22/2022 by Rafia Small MD at OR [facility] N/A: Spine Lumbar [employer] 06/21/2023 [id number] / [id number] / Description:battery Medtronic Lead Kit 60 Cm Implanted:Qty: 1 on 08/22/2022 by Rafia Small MD at OR [facility] N/A: Spine Lumbar 02/01/2026 [id number] / / [id number] Medtronic Lead Kit 60cm Implanted:Qty: 1 on 08/22/2022 by Rafia Small MD at OR [facility] N/A: Spine Lumbar 03/21/2026 [id number] / / [id number] Envelope Tyrx Med Antibacteril - [id number] Implanted:Qty: 1 on 08/22/2022 by Rafia Small MD at OR [facility] N/A: Spine Lumbar [employer] 03/10/2023 [id number] / / [id number] documented as of this encounter Advance Directives [...] the patient have Health Care Power of Motor Vehicle Salesperson? No Code Status History Code Status Date Activated Date Inactivated Comments Full Code 01/21/2011 12:12 PM 01/22/2011 8:48 PM This order reflects the patients wishes and were consensually agreed upon. Question Answer Comments Discussion of Advance Directives occurred with: Patient Does the patient have a Living Will? No Does the patient have Health Care Power of Motor Vehicle Salesperson? No Care Teams Real Estate Broker Associate Relationship Specialty Start Date End Date Scott Montoya MD [address] [place] [address] PCP - General Family Medicine 08/03/18 documented as of this encounter
--- OUTSIDE RECORDS SUMMARY | 2024-02-02 09:00 | External Medical Summary | Summary of Care ---
Author Name Unknown Organization [facility] Address [address] [facility] [place] [address] Phone [phone] Care Team Providers Care Assembly Cleaner Name Role Phone Scott Weldon MD Primary Care Provider + Reason for Visit * Reason Comments NEW PATIENT * Evaluate & Treat - Unlimited Visits (Within 10 days (routine)) - Authorized Specialty Diagnoses / Procedures Referred By Contac t Referred To Contact Nephrology Diagnoses Type 2 diabetes mellitus with stage 3 chronic kidney disease, with long-term current use of insulin, unspecified whether stage 3a or 3b CKD (HCC) Scott Weldon MD [address] [place] [address] Referral ID Status Reason Start Date Expiration Date Visits Requested Visits Authorized [id number] Authorized Specialty Services Required 09/10/[phone] Encounter Details Date Type Department Care Team (Late st Contact Info) Description 09/15/2023 9:00 AM EDT Telemedicine Nephrology, Roney Melendez [address] [phone] Jonathan Mathew MD [address] [phone] Stage 3b chronic kidney disease (HCC)* Allergies Active Allergy Reactions Criticality Noted Date Comments Naproxen Sodium Bleeding High 11/29/2013 Pollen 12/03/2022 Seasonal Food (See Comments) Anaphylaxis High 04/20/2019 Hot peppers (oils) Kiwi Extract Anaphylaxis High 04/20/2019 documented as of this encounter (statuses as of 09/15/2023) Medications Medication Sig Dispensed Refills Start Date End Date Status ONETOUCH ULTRASOFT LANCETS MISCIndications:DM type 2, not at goal ([facility]) check FS 6 times daily 4 Box 5 06/22/19 15 Active insulin glargine (LANTUS SOLOSTAR) 100 UNIT/ML SOPN 50 units daily in case of pump malfunction 5 Pre-filled Pen Syringe Dosing Unit 3 12/31/19 16 Active B-D Ultrafine III, 5MM, Pen MISC Use as directed. 100 Pre-filled Pen Syringe Dosing Unit 3 12/31/19 16 Active Glucose Blood (ProPerforma CONTOUR NEXT TEST) STRP Use to test blood sugar up to 6 times per day. E11.9 These are the ONLY test strips patient can use with insulin pump 200 Strip 5 02/18/20 17 Active Insulin Infusion Pump (MINIMLeonardo [employer] 630G INSULIN PUMP) KITIndications:Type 2 diabetes mellitus with hemoglobin A1c goal of less than 8.0% ([facility]) Use as directed. 0 07/30/19 18 Active [...] suspected opioid overdose. Seek immediate medical attention. [email or web address] 1 Each 3 11/28/19 23 Active Atenolol [...] goal of less than 8.0% ([facility]),DM type 2, not at goal ([facility]) INJECT UP TO 200 UNITS SUBCUTANEOSULY ONCE [...] BREATH 18 g 2 07/17/19 24 Active Eszopiclone 2 MG Oral [...] 24 Active Empagliflozin 10 MG Oral Tablet (Jardiance)Indicati [...] MORNING 90 Tablet 3 09/14/19 24 Active Furosemide 20 MG Oral Tablet (Lasix) Take 1 Tablet by mouth in the morning. 30 Tablet 11 09/15/19 24 Active Spironolactone 25 MG Oral Tablet (Aldactone) Take 1 Tablet by mouth in the morning. 30 Tablet 5 09/15/19 24 Active Spironolactone 50 MG Oral Tablet (Aldactone)Indicati [...] 024 Discontinued Furosemide 40 MG Oral Tablet (Lasix)Indications: Other ascites,Cirrhosis of liver with ascites, unspecified hepatic cirrhosis type (HCC),Edema, unspecified type TAKE 1 TABLET BY MOUTH EVERY DAY IN THE MORNING 90 Tablet 1 04/17/20 23 024 Discontinued documented as of this [...] Vertigo 02/19/2016 03/14/2023 Breast cancer screening 11/30/2015 0506/2018 Vaginitis 05/18/2015 05/21/2016 Vaginitis 10/18/2014 01/24/2015 Vaginitis [...] Overview: Per Obesity Taxonomy Coronary atherosclerosis of [place] coronary artery 09/15/2008 10/03/2008 Malaise and fatigue [...] mRNA, LNP-s, No Pre serve, 2-Dose Series (Playnery) 11/08/2020,10/11/2020 HEP A - Hepatitis A (Adult > 18 yrs) 04/11/2011, 09/20/2010 Hepatitis B, 20+ yrs 07/05/2015 Pneumococcal Conjugate Vacci ne, 20-valent ([id number]) 03/13/2023 Pneumococcal Polysaccharide PPV23 (Pneumovax) 02/19/2018,03/09/2007 Seasonal [...] as of this encounter Progress Notes * Mainali, Jonathan, MD - 09/15/2023 9:43 AM EDT Patient location: HOME. I was in a hospital or clinic location. After connecting through [employer],patient was verified with two unique identifiers. Patient (or authorized legal disability representative) was then informed that this was a Telemedicine visit and being conducted confidentially over secure lines. Methods to assure confidentiality were taken. Patient acknowledged consent and understanding of pr ivacy and security of the Telemedicine visit. The patient agreed to participate. Subjective: Carmen Tyson is a 53 year old female. Chief Complaint Patient presents with NEW PATIENT HPI: 53-year-old female with history of type 2 diabetes for 15+ years with diabetic retinopathy butas of now no proteinuria. At the time of initial diagnosis her A1c was 14% +but lately it is very well controlled specially after adding Ozempic June 2023. Other medical problems includes liver cirrhosis secondary to nonalcoholic fatty liver, hypertensionin the past but lately blood pressure running low obstructive sleep apnea history of stroke with left-sided weakness chronic pain syndrome migraine history of bipolar obesity. Her renal function for the last few months has been declining and is now down to 41 creatinine is 1.5. Before the Ozempic her creatinine was 1.1 GFR 65. [place] noting that her A1c is now down to 5% range and she is running low blood pressure. NSAID No Renal Stone yes . She had kidney stone 20+ years ago spontaneous passage. Never needed any surgery.No residual kidney stone on more recent imaging. Herbal Medication No Urinary Complaints No Current Outpatient Medications Medication Sig Dispense Refill insulin glargine (LANTUS SOLOSTAR) 100 UNIT/ML SOPN 50 units daily in case of pump malfunction 5 Pre-filled Pen Syringe Dosing Unit 3 CPAP every night at bedtime. Magnesium Oxide 400 (240 Mg) MG Oral [...] for suspectedopioid overdose. Seek immediate medical attention. [email or web address] 1 Each 3 Atenolol 100 MG Oral [...] FOR SHORTNESS OF BREATH 18 g 2 Eszopiclone 2 MG Oral Tablet (Lunesta) Take [...] skin once a week. 4 Patch 0 Escitalopram Oxalate 20 MG Oral Tablet [...] EVERY DAY IN THE MORNING 90Tablet 3 Furosemide 20 MG Oral Tablet (Lasix) Take 1 Tablet by mouth in the morning. 30 Tablet 11 Spironolactone 25 MG Oral Tablet (Aldactone) Take 1 Tablet by mouth in the morning. 30 Tablet 5 ONETOUCH ULTRASOFT LANCETS MISC check FS 6 times daily 4 Box 5 B-D Ultrafine III, 5MM, Pen MISC Use as directed. 100 Pre-filled Pen Syringe Dosing Unit 3 Glucose Blood (SYLVIA CONTOUR NEXT TEST) STRP Use to test blood sugar up to 6 times per day. E11.9 These are the ONLY test strips patient can use with insulin pump 200 Strip 5 Insulin Infusion Pump (MINIMLeonardo [employer] 630G INSULIN PUMP) KIT Use as directed. Glucagon Emergency 1 MG Injection Kit As directed 1 Kit 3 Zoster Vac Recomb Adjuvanted 50 MCG/0.5ML Intramuscular Suspension Reconstituted (Shingrix) Inject 0.5 mL into a large muscle now and repeat dose in 60 to 180 days 1 Each 1 metroNIDAZOLE 500 MG Oral Tablet Take 1 Tablet by mouth in the morning and 1 Tablet at noon and 1 Tablet before bedtime. (Patient not taking: Reported on 09/08/2023) Cefdinir 300 MG Oral Capsule (Omnicef) Take 1 Capsule by mouth in the morning and 1 Capsule before bedtime. (Patient not taking: Reported on 09/08/2023) No current facility-administered medications for this visit. Past Medical History: Diagnosis Date Abdominal pain, generalized 09/08/2012 Ascites 09/08/2012 ASCVD (arteriosclerotic cardiovascular disease) Benign neoplasm of stomach 07/27/12 fundic polyp-repeat EGD in 1 yr Bipolar I disorder, most recent episode depressed, moderate (HCC) Dr Zoraida Hidalgo Chronic pain syndrome 11/28/2015 Cirrhosis of liver without ascites (HCC) 02/07/2016 Diabetes mellitus with background retinopathy (HCC) 12/24/20192019 telemed images, mild DM type 2, not [...] goal of less than 8.0% (HCC) 06/22/2014 Past Surgical History: Procedure Laterality Date COLONOSCOPY, DIAGNOSTIC (RECTUM) 06/06/2010 normal colon exam repeat in 5 years COLONOSCOPY, DIAGNOSTIC (RECTUM) 06/27/2015 retained stool, repeat/COLONOSCOPY FLEXIBLE PROXIMAL DIAGNOSTIC performed by Aj Pruett DO atENDOSCOPY [facility] EGD, FLEXIBLE, DIAGNOSTIC 01/22/2011 UPPER GI ENDOSCOPY DIAGNOSTIC performed by STACEY BENNETT at ENDOSCOPY [facility] EGD, FLEXIBLE, DIAGNOSTIC 01/19/2014 portal hypertensive gastropathy, benign gastric polyp, repeat 2 yrs/done @ [facility] EGD, FLEXIBLE, DIAGNOSTIC 02/08/2016 normal bx, portal hypertensive gastropathy, repeat 1.5 yrs/[facility] EGD, FLEXIBLE, DIAGNOSTIC 08/25/2017 retained food, repeat 1 yr/ESOPHAGOGASTRODUODENOSCOPY (EGD), FLEXIBLE, TRANSORAL, DIAGNOSTIC performed by Aj Pruett DO at ENDOSCOPY [facility] EGD, FLEXIBLE, DIAGNOSTIC 12/15/2018 esophageal varices, gastritis, gastric polyp, repeat 1 yr/ESOPHAGOGASTRODUODENOSCOPY (EGD), FLEXIBLE, TRANSORAL, DIAGNOSTIC performed by Aj Pruett DO at ENDOSCOPY [facility] EGD, FLEXIBLE, DIAGNOSTIC 01/31/2020 fundic polyps, eso varices, portal hypertensive gastropathy, repeat 1 yr / ESOPHAGOGASTRODUODENOSCOPY (EGD), FLEXIBLE, TRANSORAL, DIAGNOSTIC performed by Aj Pruett DO at ENDOSCOPY [facility] EGD, FLEXIBLE, DIAGNOSTIC 10/09/2022 grade I esophageal varices/portal hypertension gastropathy/medium amount of food in stomach/ESOPHAGOGASTRODUODENOSCOPY (EGD), FLEXIBLE, TRANSORAL, DIAGNOSTIC performed by Aj Pruett DO at ENDOSCOPY [facility] EGD, FLEXIBLE, W/BIOPSY 07/27/2012 small fundic stomach polyp/inflammation r/t reflux-repeat EGD in 1 yr EGD, W/ENDOSCOPIC US 01/22/2011 UPPER GI ENDOSCOPY ENDOSCOPIC ULTRASOUND performed by STACEY BENNETT at ENDOSCOPY [facility] EVAL NEUROSTIM PULSE GEN, W/ REPROGRAM N/A 06/27/2022 NEUROSTIMULATOR PULSE GENERATOR/ TRANSMITTER, WITH INTRAOPERATIVE OR SUBSEQUENT PROGRAMMING performed by Rafia Small MD at OR [facility] EVAL NEUROSTIM PULSE GEN, W/ REPROGRAM N/A 08/22/2022 NEUROSTIMULATOR PULSE GENERATOR/ TRANSMITTER, WITH INTRAOPERATIVE OR SUBSEQUENT PROGRAMMING performed by Rafia Small MD at OR [facility] HYSTEROSCOPY,DIAGNOSTIC 07/16/2006 NovaSure endomentrial ablation IMPLANT EPIDURAL NEUROELECTRODES N/A 06/27/2022 PERCUTANEOUS IMPLANTATION NEUROSTIMULATOR EPIDURAL performed by Rafia Small MD at OR [facility] IMPLANT EPIDURAL NEUROELECTRODES N/A 08/22/2022 PERCUTANEOUS IMPLANTATION NEUROSTIMULATOR EPIDURAL performed by Rafia Small MD at OR [facility] IMPLANT SPINAL NEURORECEIVER N/A 08/22/2022 INSERTION OR REPLACEMENT SPINAL NEUROSTIMULATOR GENERATOR performed by Rafia Small MD atOR [facility] INJECT DX/THER SUBSTANCE INTERLAMINAR LUMBAR/SACRAL W IMAGE GUIDE 04/13/2017 INJECTION SPINE LUMBAR OR SACRAL performed by Rene Kate DO at OR [facility] INJECT DX/THER SUBSTANCE INTERLAMINAR LUMBAR/SACRAL W IMAGE GUIDE 12/10/2017 INJECTION SPINE LUMBAR OR SACRAL performed by Rene Kate DO at OR [facility] INSER TUNN ACC DEV;5 YRS/OLDER 03/24/2013 03/24/2013 at [facility], Placement of A-Port central venous access catheter with port Dr. Dewitt IOF CT GUIDED NEEDLE BIOPSY 07/11/2010 CT GUIDED NEEDLE ASPIRATION BIOPSY performed by JAMILA SAWANT at RADIOLOGY [facility] LIGATE/CUT OVIDUCT(S) 07/1995 Review of patient's allergies indicates: Allergen Reactions Aleve [Naproxen Sodium] Bleeding Food (See Comments) Anaphylaxis Hot peppers (oils) Kiwi Extract Anaphylaxis Environmental [Pollen] Seasonal Family History Problem Relation Age of Onset [...] Hypertension Brother No Past Hx Sister 15yo Family History of Renal Disease yes. Her father had kidney failure at the last stage of his life. Did not get on dialysis Social History Socioeconomic History Marital status: Spouse name: Scot Number of children: 2 Years of education: Not on file Highest education level: Not on file Occupational History Occupation: unemployed 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 . 2 sons--22at home 23 y engaged. Other Topics Concern Service Not Asked Blood Transfusions No Caffeine Concern No Occupational Exposure Not Asked Hobby Hazards Not Asked Sleep Concern Not Asked Stress Concern Not Asked Weight Concern Not Asked Special Diet No Back Care Not Asked Exercise Not Asked Bike Helmet Not Asked Seat Belt Yes Self-Exams Not Asked Social History Narrative Lives in [place] with , worked for the [employer] until 2010 Yanci (granddaughter 3 in '23) Social Determinants of Health Financial Resource Strain: Not on file Food Insecurity: No Food Insecurity (03/13/2023) Hunger Vital Sign Worried About Running Out of Food in the Last Year: Never true Ran Out of Food in the Last Year: Never true Transportation Needs: Not on file Physical Activity: Not on file Stress: Not on file Social Connections: Not on file Intimate Partner Violence: Not on file Housing Stability: Not on file Review of Systems: Patient does feel somewhat weak and lightheaded. She has very very poor appetite since being on Ozempic OBJECTIVE: PHYSICAL EXAM: This was a telemedicine visit Patient is awake alert normal speech and was able to give detailed account of her complicated medical history No respiratory distress Normal facial appearance BP Readings from Last 4 Encounters: 09/08/23 104/72 08/20/23 98/60 08/19/23 114/79 03/13/23 124/72 Wt Readings from Last 4 Encounters: 09/08/23 104.3 kg (230 lb) 08/20/23 104.3 kg (230 lb) 08/19/23 103.2 kg (227 lb 8 oz) 03/13/23 107.2 kg (236 lb 7 oz) Estimated body mass index is 37.68 kg/m as calculated from the following: Height as of 08/20/23: 1.664 m (5' 5.51"). Weight as of 09/08/23: 104.3 kg (230 lb). Recent Labs Units 09/08/23 1509 08/27/23 0953 08/20/23 1127 SODIUM - [facility] mmol/L 142 141 140 POTASSIUM - [facility] mmol/L 4.2 4.6 4.6 CHLORIDE - [facility] mmol/L 101 102 100 CO2 - [facility] mmol/L 29 30 30 BUN - [facility] mg/dL 22* 18 23* CREATININE - [facility] mg/dL 1.53* 1.4* 1.5* ESTIMATED GLOMERULAR FILTRATION RATE - [facility] mL/min 41* 45* 43* Recent Labs Units 08/27/23 0953 08/20/23 1127 07/23/23 1200 02/18/23 1326 HGB g/dL 12.3 13.3 13.2 12.8 FERRITIN - [facility] ng/mL 139 -- 215* 244* TRANSFERRIN SATURATION PERCENT - [facility] % 31 -- 18 31 Recent Labs Units 09/08/23 1509 08/27/23 0953 08/20/23 1127 CALCIUM - [facility] mg/dL 9.1 8.8 9.2 PHOSPHORUS - [facility] mg/dL -- 2.8 -- Recent Labs Units 07/23/23 1200 02/18/23 1326 06/11/22 0948 HEMOGLOBIN A1C - [facility] % 5.8* 5.7* 8.6* Recent Labs Units 02/15/24 1203 04/06/23 1524 03/11/22 1343 11/08/21 0900 ALBUMIN/CREATININE RATIO, HIDE mg/g Creat -- -- Uninterpretable Albumin/Creatinine ratio due to very low albumin and creatinine values. -- ALBUMIN / CREATININE RATIO, URINE - [facility] mg/g Creat <21 <7 -- <5 ASSESSMENT: Stage 3b chronic kidney disease (HCC) (Primary) 53-year-old female with complicated medical problems including longstanding diabetes which started at young age of onset and is already associated with retinopathy. On top of that she also has liver cirrhosis secondary to MENDEZ, obstructive sleep apnea. GFR has trended down in the last few months. I believe some of it is related with relative hypotension since being on Ozempic. Her appetite has dropped to extremely low level and she says she has not eating much at all. Her A1c is now down to 5% range and I think there is room to cut down on her diabetes medicine. There is room to cut down on the blood pressure medications/diuretics given massive drop in appetite. This was a telemedicine visit so I could not examine the edema but according to the patient she hasno edema. Also reviewed recent imaging and she does not have ascites Given this will lower the Lasix to 20 daily and spironolactone to 25 daily New prescription has been sent to her pharmacy Will do labs as below next week on September 22 to see if it makes any difference Given the nature and age of onset of her diabetes she is at high risk of diabetic nephropathy in the coming years Will continue to follow her in the clinic - CBC WITH WBC DIFFERENTIAL; Future; Expected date: 09/15/2023 - PTH; Future; Expected date: 09/15/2023 - RENAL FUNCTION PANEL; Future; Expected date: 09/15/2023 - PROTEIN/ CREATININE RATIO, URINE; Future; Expected date: 09/15/2023 - URINALYSIS WITH MICROSCOPIC EXAM; Future; Expected date: 09/15/2023 - 25-HYDROXY VITAMIN D; Future; Expected date: 09/15/2023 - MAGNESIUM; Future; Expected date: 09/15/2023 Other orders---dose lowered - Furosemide 20 MG Oral Tablet (Lasix); Take 1 Tablet by mouth in the morning. - Spironolactone 25 MG Oral Tablet (Aldactone); Take 1 Tablet by mouth in the morning. Follow Up: Return in about 6 months (around 03/16/2024) for Clinic Visit. | For: Clinic Visit Thanks for the consult MD Jonathan Escobar MD' documented in this encounter Nursing Notes * Carmen Ocasio RN - 09/15/2023 8:55 AM EDT New patient today for a video visit regarding CKD and hypertension referred by PCP. Pt identified by name and date of . She is aware to stay logged on to video visit. documented in this encounter Plan of Treatment Upcoming Encounters Date Type Department Care Team (Late st Contact Info) Description 09/16/2023 11:50 AM EDT Laboratory Laboratory, [place] [address] [place] [phone] [place] [address] [place] [address] 09/16/2023 1:20 PM EDT Office Visit Neurology [facility] [address] [facility] [place] [address] Yesenia Wayne PA-C [address] [facility] [place] [address] 09/23/2023 2:00 PM EDT Immunization/Injecti on Hematology/Oncolog y Treatment, [place] [address] [place] [phone] Nurse, Med 4 [address] [facility] [place] [address] 09/28/2023 2:45 PM EDT Imaging Radiology [facility], [place] [address] [facility] [place] [address] 09/30/2023 9:00 AM EDT Office Visit Pharmacy, [address], [place] [address] [place], [place] [address] [address] [facility], [place] [address] 10/05/2023 8:00 AM EDT Hospital Encounter ENDO [facility], Endoscopy Room [facility] [address] [place], [place] [id number] Aj Pruett, DO [address] [place] [address] 10/05/2023 8:00 AM EDT - 10/05/2023 9:00 AM EDT Surgery ENDO [facility], Endoscopy Room [facility] [address] [place] [phone] Aj Pruett, DO [address] [place] [address] COLONOSCOPY FLEXIBLE PROXIMAL DIAGNOSTIC 10/05/2023 12:00 PM EDT Telemedicine Psychiatry, [address] [place] [address] Rj Mai MD [address] [place] [address] 10/12/2023 2:30 PM EDT Office Visit General Surgery, [facility] [address] [place] [address] Mariano Billingsley MD [address] [place] [address] 11/05/2023 1:00 PM EDT Telemedicine Pharmacy, [facility] [address] [place] [address] [facility] [address] [place] [address] 11/24/2023 9:20 AM EDT Office Visit [facility] Disorders [facility] [address] [facility] [place] [phone] Lakisha Murcia, [address] [facility] [place] [address] 11/25/2023 2:20 PM EDT Office Visit [facility] [address] [facility] [place] [address] Scott Weldon MD [address] [facility] [place] [address] 02/09/2024 8:00 AM EDT Telemedicine Gastroenterology, [address] [address] Charlee Fields MD [address] [place], [place] [id number] 02/24/2024 2:15 PM EDT Office Visit Hematology/Oncolog y [facility] [address] [place] [phone] Sunil Bourgeois MD [address] [facility] [place] [address] 03/16/2024 12:20 PM EDT Office Visit [facility] [address] [facility] [place] [address] Scott Weldon MD [address] [facility] [place] [address] 03/24/2024 12:30 PM EDT Office Visit Ophthalmology, [facility] [address] [facility] [place] [address] Rolan Self, DO [address] [facility] [place] [address] Scheduled Orders Name Type Priority Associated Diagnoses Orde r Schedule CBC WITH WBC DIFFERENTIAL Lab Routine Stage 3b chronic kidney disease (HCC) Expected: 09/15/2023 (Approximate), Expires: 03/13/2024 PTH Lab Routine Stage 3b chronic kidney disease (HCC) Expected: 09/15/2023 (Approximate), Expires: 03/13/2024 RENAL FUNCTION PANEL Lab Routine Stage 3b chronic kidney disease (HCC) Expected: 09/15/2023 (Approximate), Expires: 03/13/2024 PROTEIN/ CREATININE RATIO, URINE Lab Routine Stage 3b chronic kidney disease (HCC) Expected: 09/15/2023 (Approximate), Expires: 03/13/2024 URINALYSIS WITH MICROSCOPIC EXAM Lab Routine Stage 3b chronic kidney disease (HCC) Expected: 09/15/2023 (Approximate), Expires: 03/13/2024 25-HYDROXY VITAMIN D Lab Routine Stage 3b chronic kidney disease (HCC) Expected: 09/15/2023 (Approximate), Expires: 03/13/2024 MAGNESIUM Lab Routine Stage 3b chronic kidney disease (HCC) Expected: 09/15/2023 (Approximate), Expires: 03/13/2024 Scheduled Procedures Name Priority [...] this encounter Medical Devices Implanted Type Area Double Cutter Device Identifier Shelf Expiration Date Model / Serial / Lot Neurostimul Intellis Adaptiv - [id number] - [id number] Implanted:Qty: 1 on 08/22/2022 by Rafia Small MD at OR [facility] N/A: Spine Lumbar [employer] 06/21/2023 [id number] / [id number] / Description:battery Medtronic Lead Kit 60 Cm Implanted:Qty: 1 on 08/22/2022 by Rafia Small MD at OR [facility] N/A: Spine Lumbar 02/01/2026 [id number] / / [id number] Medtronic Lead Kit 60cm Implanted:Qty: 1 on 08/22/2022 by Rafia Small MD at OR [facility] N/A: Spine Lumbar 03/21/2026 [id number] / / [id number] Envelope Tyrx Med Antibacteril - [id number] Implanted:Qty: 1 on 08/22/2022 by Rafia Small MD at OR [facility] N/A: Spine Lumbar [employer] 03/10/2023 [id number] / / [id number] documented as of this encounter Visit Diagnoses [...] the patient have Health Care Power of Cloth Sander? No Code Status History Code Status Date Activated Date Inactivated Comments Full Code 01/21/2011 12:12 PM 01/22/2011 8:48 PM This order reflects the patients wishes and were consensually agreed upon. Question Answer Comments Discussion of Advance Directives occurred with: Patient Does the patient have a Living Will? No Does the patient have Health Care Power of Cloth Sander? No Care Teams Assembly Cleaner Relationship Specialty Start Date End Date Scott Weldon MD [address] [place] [address] PCP - General Family Medicine 08/03/18 documented as of this encounter
--- OUTSIDE RECORDS SUMMARY | 2024-02-02 09:01 | External Medical Summary | Summary of Care ---
Author Name Unknown Organization [facility] Address [address] [facility] [place] [address] Phone [phone] Care Team Providers Care Librarian Head Name Role Phone Scott Montoya MD Primary Care Provider + Reason for Visit * Reason Comments eRx-Medication Refill Encounter Details Date Type Department Care Team (Late st Contact Info) Description 09/12/2023 Refill Family Practice [facility] [address] [facility] [place] [address] Scott Montoya MD 132 [facility] [place] [address] Dyslipidemia, goal LDL below 100 Allergies Active Allergy Reactions Criticality Noted Date Comments Naproxen Sodium Bleeding High 11/29/2013 Pollen 12/03/2022 Seasonal Food (See Comments) Anaphylaxis High 04/20/2019 Hot peppers (oils) Kiwi Extract Anaphylaxis High 04/20/2019 documented as of this encounter (statuses as of 09/14/2023) Medications Medication Sig Dispensed Refills Start Date [...] 5 02/18/20 17 Active Insulin Infusion Pump (MINIM[employer]ora [employer] 630G INSULIN PUMP) KITIndications:Type 2 diabetes mellitus with hemoglobin A1c goal of less than 8.0% ([facility]) Use as directed. 0 07/30/19 18 [...] suspected opioid overdose. Seek immediate medical attention. [email or web address] 1 Each 3 11/28/19 23 Active Atenolol [...] MORNING 90 Tablet 3 09/14/19 24 Active Atorvastatin Calcium 40 MG Oral Tablet (Lipitor)Indication s:Dyslipidemia, goal LDL below 100 Take 1 Tablet by mouth in the morning. 90 Tablet 3 09/09/19 23 024 Discontinued documented as of this encounter (statuses as of 09/14/2023) Active Problems Problem Noted Date Diagnosed Date [...] as of this encounter (statuses as of 09/14/2023) Resolved Problems Problem Noted Date Diagnosed Date [...] Overview: Per Obesity Taxonomy Coronary atherosclerosis of [place] coronary artery 09/15/2008 10/03/2008 Malaise and [...] as of this encounter (statuses as of 09/14/2023) Immunizations Name Administration Dates Next Due COVID-19 mRNA, LNP-s, No Pre serve, 2-Dose Series (Baxano) 11/08/2020,10/11/2020 HEP A - Hepatitis A (Adult > 18 yrs) 04/11/2011, 09/20/2010 Hepatitis B, 20+ yrs 07/05/2015 Pneumococcal Conjugate Vacci ne, 20-valent ([id number]) 03/13/2023 Pneumococcal Polysaccharide PPV23 (Pneumovax) 02/19/2018,03/09/2007 Seasonal [...] encounter Miscellaneous Notes * Telephone Encounter - Pricila Pineda [facility] - 09/14/2023 7:59 AM EDTSigned Prescriptions: Disp Refills Atorvastatin Calcium 40 MG Oral Tablet (Li*90 Tab*3 Sig: TAKE 1 TABLET BY MOUTH EVERY DAY IN THE MORNINGAuthorizing Provider: SCOTT MONTOYA User: PRICILA PINEDA documented in this encounter Plan of Treatment Upcoming Encounters Date Type Department Care Team (Late st Contact Info) Description 09/15/2023 9:00 AM EDT Telemedicine Nephrology, [facility] [address] [address] Jonathan Mathew MD [address] [address] 09/16/2023 11:50 AM EDT Laboratory Laboratory, [place] [address] [facility] [phone] [facility] [address] [place] [facility] [place] [address] 09/16/2023 1:20 PM EDT Office Visit Neurology [facility] [address] [facility] [place] [address] Yesenia Wayne PA-C [address] [address] 09/23/2023 2:00 PM EDT Immunization/Injecti on Hematology/Oncolog y Treatment, [place] [address] [place] [phone] Nurse, Med [address] [place] [address] 09/28/2023 2:45 PM EDT Imaging Radiology [facility] 2nd [facility], [place] 132 [facility] [place] [address] 09/30/2023 9:00 AM EDT Office Visit Pharmacy, [place] [address] [facility] [address] Jayesh [facility] [address] [facility] [address] 10/05/2023 8:00 AM EDT Hospital Encounter ENDO [facility], Endoscopy Room [facility] [address] [place]y [place], [place] [phone] Aj Pruett, DO [address] [place] [address] 10/05/2023 8:00 AM EDT - 10/05/2023 9:00 AM EDT Surgery ENDO [facility], Endoscopy Room [facility] [address] [place] [phone] Aj Pruett, DO [address] [place] [address] COLONOSCOPY FLEXIBLE PROXIMAL DIAGNOSTIC 10/05/2023 12:00 PM EDT Telemedicine Psychiatry, [address] [place] [address] Rj Mai MD [address] [place] [address] 10/12/2023 2:30 PM EDT Office Visit General Surgery, [facility] [address] [place] [address] Mariano Billingsley MD [address] [place] [address] 11/05/2023 1:00 PM EDT Telemedicine Pharmacy, [facility] [address] [place] [address] [facility] [address] [place] [address] 11/24/2023 9:20 AM EDT Office Visit [facility] Disorders Ctr [facility] [address] [place] [phone] Lakisha Murcia, DO [address] [place] [address] 11/25/2023 2:20 PM EDT Office Visit [facility] 132 [facility] [place] [address] Scott Montoya MD [address] [place] [address] 02/09/2024 8:00 AM EDT Telemedicine Gastroenterology, [facility] [address] [place] [address] Charlee Fields MD [address] [place] [facility] [place] [address] 02/24/2024 2:15 PM EDT Office Visit Hematology/Oncolog y [facility] [address] [place] [phone] Sunil Bourgeois MD [address] [place] [address] 03/16/2024 12:20 PM EDT Office Visit [facility] 132 [facility] [place] [address] Scott Montoya MD 132 [facility] [place] [address] 03/24/2024 12:30 PM EDT Office Visit Ophthalmology, [facility] 132 [facility] [place] [address] Rolan Self, DO [address] [facility] [place] [address] Scheduled Procedures Name Priority Associated Diagnoses Date/Ti [...] 0 09/2022, 06/14/2020, Additional history exists GFR 09/07/2024 09/08/2023, 0306/2023, 08/20/2023, Additional history exists Lipid Panel 07/23/2028 [...] this encounter Medical Devices Implanted Type Area Tack Picker Device Identifier Shelf Expiration Date Model / Serial / Lot Neurostimul Intellis Adaptiv - [id number] - [id number] Implanted:Qty: 1 on 08/22/2022 by Rafia Small MD at OR [facility] N/A: Spine Lumbar [employer] 06/21/2023 [id number] / [id number] / Description:battery Medtronic Lead Kit 60 Cm Implanted:Qty: 1 on 08/22/2022 by Rafia Small MD at OR [facility] N/A: Spine Lumbar 02/01/2026 [id number] / / [id number] Medtronic Lead Kit 60cm Implanted:Qty: 1 on 08/22/2022 by Rafia Small MD at OR [facility] N/A: Spine Lumbar 03/21/2026 [id number] / / [id number] Envelope Tyrx Med Antibacteril - [id number] Implanted:Qty: 1 on 08/22/2022 by Rafia Small MD at OR [facility] N/A: Spine Lumbar [employer] 03/10/2023 [id number] / / [id number] documented as of this encounter Visit Diagnoses Diagnosis Dyslipidemia, goal LDL below 100 Other and unspecified hyperlipidemia Colon cancer screening Special screening for malignant [...] the patient have Health Care Power of Receiving Inspector? No Code Status History Code Status Date Activated Date Inactivated Comments Full Code 01/21/2011 12:12 PM 01/22/2011 8:48 PM This order reflects the patients wishes and were consensually agreed upon. Question Answer Comments Discussion of Advance Directives occurred with: Patient Does the patient have a Living Will? No Does the patient have Health Care Power of Receiving Inspector? No Care Teams Librarian Head Relationship Specialty Start Date End Date Scott Montoya MD [address] [place] [address] PCP - General Family Medicine 08/03/18 documented as of this encounter
--- OUTSIDE RECORDS SUMMARY | 2024-02-02 09:01 | External Medical Summary | Summary of Care ---
Author Name Unknown Organization [facility] Address [address] [facility] [place] [address] Phone [phone] Care Team Providers Care Senior Stereo Compiler Team Lead Name Role Phone Scott Weldon MD Primary Care Provider + Encounter Details Date Type Department Care Team (Late st Contact Info) Description 09/11/2023 Orders Only PATIENT PORTAL DO NOT DELETE THIS DEPT USED BY [place] FRIEND [id number] Allergies Active Allergy Reactions Criticality Noted Date Comments Naproxen Sodium Bleeding High 11/29/2013 Pollen 12/03/2022 Seasonal Food (See Comments) Anaphylaxis High 04/20/2019 Hot peppers (oils) Kiwi Extract Anaphylaxis High 04/20/2019 documented as of this encounter (statuses as of 09/11/2023) Medications Medication Sig Dispensed Refills Start Date [...] Strip 5 7 Active Insulin Infusion Pump (MINIMLattice Power 630G INSULIN PUMP) KITIndications:Type 2 diabetes mellitus with hemoglobin A1c goal of less than 8.0% ([facility]) Use as directed. 0 8 Active CPAP [...] .[email or web address] 1 Each 3 3 Active Atenolol 100 [...] THE MORNING 90 Tablet 1 3 Active NovoLIN R [...] FOR NAUSEA 30 Tablet 0 4 Active Buprenorphine 5 MCG/HR Transdermal Patch Weekly (Butrans)Indications :Controlled substance agreement signed,Chronic bilateral low back pain with sciatica, sciatica laterality unspecified,Chronic pain syndrome Place 1 Patch topically on the skin once a week. 4 Patch 0 4 Active metroNIDAZOLE 500 MG Oral [...] Sodium 40 MG Oral Tablet Delayed Release (Protonix)Indication s:Esophageal varices without bleeding, unspecified esophageal varices type (HCC),Colitis Take 1 Tablet by mouth in the morning. 90 Tablet 3 4 Active Empagliflozin 10 MG Oral Tablet (Jardiance)Indicatio ns:Type 2 diabetes mellitus with hemoglobin A1c [...] TABLET BY MOUTH daily 0 4 Active documented as of this encounter (statuses as of 09/11/2023) Active Problems Problem Noted Date Diagnosed Date [...] as of this encounter (statuses as of 09/11/2023) Resolved Problems Problem Noted Date Diagnosed Date [...] Overview: Per Obesity Taxonomy Coronary atherosclerosis of [place] coronary artery 09/15/2008 10/03/2008 Malaise and fatigue [...] as of this encounter (statuses as of 09/11/2023) Immunizations Name Administration Dates Next Due COVID-19 mRNA, LNP-s, No Pre serve, 2-Dose Series (Pfizer) 11/08/2020,10/11/2020 HEP A - Hepatitis A (Adult > 18 yrs) 04/11/2011, 09/20/2010 Hepatitis B, 20+ yrs 07/05/2015 Pneumococcal Conjugate Vacci ne, 20-valent ([id number]) 03/13/2023 Pneumococcal Polysaccharide PPV23 (Pneumovax) 02/19/2018,03/09/2007 Seasonal [...] Description 09/15/2023 9:00 AM EDT [facility] [address] [address] Jonathan Mathew MD [address] [address] 09/16/2023 1:20 PM EDT [facility] [address] [address] Yesenia Wayne PA-C [address] [address] 09/23/2023 2:00 PM EDT Immunization/Injecti on Hematology/Oncolog y Treatment, [place] [address] [place] [phone] Nurse, Med [address] [address] 09/28/2023 2:45 PM EDT Imaging Radiology [facility] 2nd [facility] [address] [place] [address] 09/30/2023 9:00 AM EDT Office Visit Pharmacy, [place] [address] [address] [facility], [place] [address] [facility] [address] [place] [address] 10/05/2023 8:00 AM EDT Hospital Encounter [facility], Endoscopy Room [facility] [address] [place] [phone] Aj Pruett, DO [address] [place] [address] 10/05/2023 8:00 AM EDT - 10/05/2023 9:00 AM EDT Surgery [facility], Endoscopy Room [facility] [address] [place] [phone] Aj Pruett, DO [address] [place] [address] COLONOSCOPY FLEXIBLE PROXIMAL DIAGNOSTIC 10/05/2023 12:00 PM EDT Telemedicine Psychiatry, [address], [place] [address] Rj Mai MD [address] [place] [address] 10/12/2023 2:30 PM EDT Office Visit General Surgery, [facility] [address] [place] [address] Mariano Billingsley MD [address] [place] [address] 11/05/2023 1:00 PM EDT Telemedicine Pharmacy, [facility] [address] [place] [address] [facility] [address] Justen Chawla, [place] [address] 11/24/2023 9:20 AM EDT Office Visit Sleep Disorders Ctr [facility] 132 [facility] [place] [phone] Lakisha Murcia DO [address] [place] [address] 11/25/2023 2:20 PM EDT Office Visit [facility] [address] [place] [address] Scott Weldon MD [address] [place] [address] 02/09/2024 8:00 AM EDT Telemedicine Gastroenterology, [facility] [address] [place] [address] Charlee Fields MD [address] [place] [address] 02/24/2024 2:15 PM EDT Office Visit Hematology/Oncolog y [facility] [address] [place] [phone] Sunil Bourgeois MD [address] [place] [address] 03/16/2024 12:20 PM EDT Office Visit [facility] [address] [place] [address] Scott Weldon MD [address] [place] [address] 03/24/2024 12:30 PM EDT Office Visit Ophthalmology, [facility] [address] [address] Rolan Self, DO [address] [facility] [place] [phone] Scheduled Procedures Name Priority Associated Diagnoses Date/Ti [...] this encounter Medical Devices Implanted Type Area Landfill Gas Collection System Operator Device Identifier Shelf Expiration Date Model / Serial / Lot Neurostimul Intellis Adaptiv - [id number] - [id number] Implanted:Qty: 1 on 08/22/2022 by Rafia Small MD at OR [facility] N/A: Spine Lumbar [employer] 06/21/2023 [id number] / [id number] / Description:battery Medtronic Lead Kit 60 Cm Implanted:Qty: 1 on 08/22/2022 by Rafia Small MD at OR [facility] N/A: Spine Lumbar 02/01/2026 [id number] / / [id number] Medtronic Lead Kit 60cm Implanted:Qty: 1 on 08/22/2022 by Rafia Small MD at OR [facility] N/A: Spine Lumbar 03/21/2026 [id number] / / [id number] Envelope Tyrx Med Antibacteril - [id number] Implanted:Qty: 1 on 08/22/2022 by Rafia Small MD at OR [facility] N/A: Spine Lumbar [employer] 03/10/2023 [id number] / / [id number] documented as of this encounter Advance Directives [...] the patient have Health Care Power of Speed Winder? No Code Status History Code Status Date Activated Date Inactivated Comments Full Code 01/21/2011 12:12 PM 01/22/2011 8:48 PM This order reflects the patients wishes and were consensually agreed upon. Question Answer Comments Discussion of Advance Directives occurred with: Patient Does the patient have a Living Will? No Does the patient have Health Care Power of Speed Winder? No Care Teams Senior Stereo Compiler Team Lead Relationship Specialty Start Date End Date Scott Weldon MD [address] [place] [address] PCP - General Family Medicine 08/03/18 documented as of this encounter
--- OUTSIDE RECORDS SUMMARY | 2024-02-02 09:01 | External Medical Summary | Summary of Care ---
Author Name Unknown Organization [facility] Address [address] [facility] [place] [address] Phone [phone] Care Team Providers Care Pathologist Name Role Phone Scott Weldon MD Primary Care Provider + Reason for Visit * Reason Comments PAP Encounter Details Date Type Department Care Team (Late st Contact Info) Description 09/08/2023 2:40 PM EDT Office Visit Family Practice [facility] [address] [place] [address] Jadiel Epstein CRNP [address] [place] [address] Pap smear for cervical cancer screening*; HTN, goal below 130/80; Hemiplegia and 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 (HCC); Cirrhosis of liver without ascites, unspecified hepatic cirrhosis type (HCC) Allergies Active Allergy Reactions Criticality Noted Date Comments Naproxen Sodium Bleeding High 11/29/2013 Pollen 12/03/2022 Seasonal Food (See Comments) Anaphylaxis High 04/20/2019 Hot peppers (oils) Kiwi Extract Anaphylaxis High 04/20/2019 documented as of this encounter (statuses as of 09/08/2023) Medications Medication Sig Dispensed Refills Start Date [...] Strip 5 7 Active Insulin Infusion Pump ([id number] 630G INSULIN PUMP) KITIndications:Type 2 diabetes mellitus with hemoglobin A1c goal of less than 8.0% ([facility]) Use as directed. 0 8 [...] MEALS 180 Tablet 1 4 Active Eszopiclone 2 [...] a week. 4 Patch 0 4 Active hydrOXYzine HCl 25 MG Oral Tablet Take 1 tab during the day every 4-6 hours as needed for anxiety and take 2 tabs at bedtime as needed for anxiety 120 Tablet 1 4 Active metroNIDAZOLE 500 MG Oral Tablet [...] the morning. 30 Tablet 0 4 Active documented as of this encounter (statuses as of 09/08/2023) Active Problems Problem Noted Date Diagnosed Date [...] as of this encounter (statuses as of 09/08/2023) Resolved Problems Problem Noted Date Diagnosed Date [...] Overview: Per Obesity Taxonomy Coronary atherosclerosis of [place] coronary artery 09/15/2008 10/03/2008 Malaise and fatigue [...] as of this encounter (statuses as of 09/08/2023) Immunizations Name Administration Dates Next Due COVID-19 mRNA, LNP-s, No Pre serve, 2-Dose Series ([facility]) 11/08/2020,10/11/2020 HEP A - Hepatitis A (Adult > 18 yrs) 04/11/2011, 09/20/2010 Hepatitis B, 20+ yrs 07/05/2015 Pneumococcal Conjugate Vacci ne, 20-valent ([id number]) 03/13/2023 Pneumococcal Polysaccharide PPV23 (Pneumovax) 02/19/2018,03/09/2007 Seasonal [...] Reading Time Taken Comments Blood Pressure 104/72 09/08/2023 2:32 PM EDT Pulse 84 09/08/2023 2:32 PM EDT Temperature 36.6 C (97.8 F) 09/08/2023 2:32 PM ED T Respiratory Rate 16 09/08/2023 2:32 PM EDT Oxygen Saturation - - Inhaled Oxygen Concentration - - Weight 104.3 kg (230 lb) 09/08/2023 2:32 PM EDT Height - - Body Mass Index 37.68 08/20/2023 10:48 AM EDT documented in this [...] as of this encounter Progress Notes * Jadiel Epstein CRNP - 09/08/2023 2:32 PM EDT Images from the original note were not included. Well Woman Complete Physical History of Present Illness Carmen Tyson is a very pleasant 53 year old year old female presenting for well woman exam today. Screenings Family hx of CA - denies Hx of breast disease- denies Hx of abnormal pap- denies Hx of gynecology surgery - ablation 2006, ligate oviduct 1995 Last Mammo-08/2023 Last PAP- 2014 Colonoscopy-scheduled on 10/05/23 Screening labs for cholesterol and blood sugar UTD on vaccines- Menstruation Not since 2005. No bleeding. Had vasomotor symptoms in past, but not notice as much. Sexual Activities Sexually active with male partner # of partners last 12 months: 1 History of STI - Denies STI testing (Chlamydia, Gonorrhea, HIV, syphilis) - declines Social History Socioeconomic History Marital status: Spouse name: Mathew Number of children: 2 Occupational History Occupation: unemployed 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 [employer] Tobacco Use Smoking status: Never Passive exposure: Past Smokeless tobacco: Never Substance and Sexual Activity Alcohol use: No Drug use: No Sexual activity: Yes Partners: Male control/protection: Surgical Comment: tubal ligation. . 2 sons--22at home 23 y engaged. Other Topics Concern Blood Transfusions No Caffeine Concern No Special Diet No Seat Belt Yes Social History Narrative Lives in [place] with , worked for the [employer] until 2010 Yanci (granddaughter 3 in '23) Social Determinants of Health Food Insecurity: No Food Insecurity (03/13/2023) Hunger Vital Sign Worried About Running Out of Food in the Last Year: Never true Ran Out of Food in the Last Year: Never true Family History Problem Relation Age of Onset [...] Hypertension Brother No Past Hx Sister 15yo Past Medical History: Diagnosis Date Abdominal pain, [...] COVID-19 virus 09/10/2020 Reflux 07/27/12 Stroke (HCC) 2012 Syncope and collapse Tachycardia Type 2 diabetes mellitus with hemoglobin A1c goal of less than 8.0% (HCC) 06/22/2014 Physical Exam There were no vitals taken for this visit. Physical Exam Exam conducted with a fireman helper present. Constitutional: Appearance: Normal appearance. Cardiovascular: Rate and Rhythm: Normal rate and regular rhythm. Pulmonary: Effort: Pulmonary effort is normal. Breath sounds: Normal breath sounds. Abdominal: General: Bowel sounds are normal. Palpations: Abdomen is soft. Genitourinary: General: Normal vulva. Labia: Right: No rash, tenderness or lesion. Left: No rash, tenderness or lesion. Vagina: No erythema, tenderness or bleeding. Cervix: No discharge, lesion or erythema. Uterus: Normal. Adnexa: Right: No mass or tenderness. Left: No mass or tenderness. Rectum: No external hemorrhoid. Lymphadenopathy: Lower Body: No right inguinal adenopathy. No left inguinal adenopathy. Skin: General: Skin is warm. Neurological: Mental Status: She is alert. Psychiatric: Mood and Affect: Mood normal. Assessment and Plan 1. Pap smear for cervical cancer screening - [employer] PAP SCREEN; Future - [employer] PAP SCREEN 2. HTN, goal below 130/80 stable 3. Hemiplegia and 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 (HCC) Wrap-Up Anticipatory Guidance: Breast Screening recommendations: > 40 years for average risk patients Pap screening recommendation (Age 21-65): every 3 years with cervical cytology only or every 5 years cytology with high-risk human papilomavirus (hrHPV) testing. Bone Health Recommendation: > 65 years I spent a total of 30-39 minutes (exact time 30 mins) on the date of service in preparation, delivery, and documentation of the care provided to Carmen Tyson excluding any time spent in the performance of separately billed services. Jadiel Epstein, MSN, NOEL [facility] documented in this encounter Nursing Notes * Syed Reardon RN - 09/08/2023 2:35 PM EDT Chief Complaint Patient presents with PAP documented in this encounter Plan of Treatment Upcoming Encounters Date Type Department Care Team (Late st Contact Info) Description 09/09/2023 11:30 AM EDT Office Visit General Surgery, [facility] [address] [place] [address] Mariano Billingsley MD [address] [place] [address] 09/16/2023 1:20 PM EDT Office Visit Neurology [facility] [place] [address] [facility] [place] [address] Yesenia Wayne PA-C [address] [facility] [place] [address] 09/23/2023 2:00 PM EDT Immunization/Injecti on Hematology/Oncolog y Treatment, [place] [address] [place] [address] Nurse, Med 4 200 [facility] [place] [address] 09/30/2023 9:00 AM EDT Office Visit Pharmacy, [place] [address] [facility], [place] [address] [place] [address] [facility], [place] [address] 10/05/2023 8:00 AM EDT Hospital Encounter ENDO [facility], Endoscopy Room [facility] [address] [place] [phone] Aj Pruett, DO [address] [place] [address] 10/05/2023 8:00 AM EDT - 10/05/2023 9:00 AM EDT Surgery ENDO [facility], Endoscopy Room [facility] [address] [place] [address] Aj Pruett, DO [address] [place] [address] COLONOSCOPY FLEXIBLE PROXIMAL DIAGNOSTIC 10/05/2023 12:00 PM EDT Telemedicine Psychiatry, [facility] [address] [facility] [place] [address] Rj Mai MD [address] [place] [address] 11/05/2023 1:00 PM EDT Telemedicine Pharmacy, [facility] [place] [address] [place] [address] [facility] [address] [place] [address] 11/24/2023 9:20 AM EDT Office Visit Sleep Disorders Ctr Keith [facility] [place] [address] [place] [phone] Lakisha Murcia, [address] [place] [address] 02/09/2024 8:00 AM EDT Telemedicine Gastroenterology, [facility] [address] [place] [address] Charlee Fields MD [address] [place] [address] 02/24/2024 2:15 PM EDT Office Visit Hematology[facility]colog y [facility] [address] [place] [phone] Sunil Bourgeois MD [address] [place] [address] 03/16/2024 12:20 PM EDT Office Visit Family Practice [facility] [address] [place] [address] Scott Weldon MD 132 [facility] [place] [address] 03/24/2024 12:30 PM EDT Office Visit Ophthalmology, [facility] [address] [facility] [place] [address] Rolan Self, DO [address] [facility] [place] [address] Pending Results Name Type Priority Associated Diagnoses Date /Time [employer] PAP SCREEN Pathology Routine Pap smear for cervical cancer screening 09/08/2023 3:19 PM EDT Scheduled Orders Name Type Priority Associated Diagnoses Orde r Schedule [employer] PAP SCREEN Pathology Routine Pap smear for cervical cancer screening Expected: 09/08/2023, Expires: 10/07/2024 Scheduled Procedures Name Priority Associated Diagnoses Date/Ti [...] 024, 04/06/2023, 03/11/2022, Additional history exists GFR 08/26/2024 08/27/2023, 08/06, 07/23/2023, Additional history exists Mammogram 09/01/2024 09/02/2023, 04/10, 01/21/2016 Lipid Panel 07/23/2028 07/23/2023, 09/2021, 12/12/2019, Additional [...] this encounter Medical Devices Implanted Type Area Aircraft Captain Device Identifier Shelf Expiration Date Model / Serial / Lot Neurostimul Intellis Adaptiv - [id number] - [id number] Implanted:Qty: 1 on 08/22/2022 by Rafia Small MD at OR [facility] N/A: Spine Lumbar [employer] 06/21/2023 [id number] / [id number] / Description:battery Medtronic Lead Kit 60 Cm Implanted:Qty: 1 on 08/22/2022 by Rafia Small MD at OR [facility] N/A: Spine Lumbar 02/01/2026 [id number] / / [id number] Medtronic Lead Kit 60cm Implanted:Qty: 1 on 08/22/2022 by Rafia Small MD at OR [facility] N/A: Spine Lumbar 03/21/2026 [id number] / / [id number] Envelope Tyrx Med Antibacteril - [id number] Implanted:Qty: 1 on 08/22/2022 by Rafia Small MD at OR [facility] N/A: Spine Lumbar [employer] 03/10/2023 [id number] / / [id number] documented as of this encounter Visit Diagnoses Diagnosis Pap smear for cervical cancer screening- Primary Screening for malignant neoplasm of the cervix HTN, goal below 130/80 Unspecified essential hypertension Hemiplegia and 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 (HCC) Cirrhosis of liver without ascites, unspecified hepatic cirrhosis type (HCC) Colon cancer screening Special screening for [...] the patient have Health Care Power of Store Assistant? No Code Status History Code Status Date Activated Date Inactivated Comments Full Code 01/21/2011 12:12 PM 01/22/2011 8:48 PM This order reflects the patients wishes and were consensually agreed upon. Question Answer Comments Discussion of Advance Directives occurred with: Patient Does the patient have a Living Will? No Does the patient have Health Care Power of Store Assistant? No Care Teams Pathologist Relationship Specialty Start Date End Date Scott Weldon MD [address] [facility] [place] [address] PCP - General Family Medicine 08/03/18 documented as of this encounter
--- OUTSIDE RECORDS SUMMARY | 2024-02-02 09:01 | External Medical Summary | Summary of Care ---
Author Name Unknown Organization [facility] Address [address] [place] [address] Phone [phone] Care Team Providers Care Registered Dental Assistant Rda Name Role Phone Scott Montoya MD Primary Care Provider + Reason for Visit * Reason Onset Date Comments Medication Refill 09/09/2023 Encounter Details Date Type Department Care Team (Late st Contact Info) Description 09/09/2023 Refill [facility] [address] [place] [address] Ruby Penn CRNP [address] [place] [address] Allergies Active Allergy Reactions Criticality Noted Date Comments Naproxen Sodium Bleeding High 11/29/2013 Pollen 12/03/2022 Seasonal Food (See Comments) Anaphylaxis High 04/20/2019 Hot peppers (oils) Kiwi Extract Anaphylaxis High 04/20/2019 documented as of this encounter (statuses as of 09/09/2023) Medications Medication Sig Dispensed Refills Start Date [...] overdose. Seek immediate medical attention. [email or web address] 1 Each 3 3 Active Atenolol 100 [...] TABLET BY MOUTH daily 0 4 Active hydrOXYzine HCl 25 MG Oral Tablet Take 1 tab during the day every 4-6 hours as needed for anxiety and take 2 tabs at bedtime as needed for anxiety 120 Tablet 1 4 09/09/19 24 Discontinu ed(Refill) documented as of this encounter (statuses as of 09/09/2023) Active Problems Problem Noted Date Diagnosed Date [...] as of this encounter (statuses as of 09/09/2023) Resolved Problems Problem Noted Date Diagnosed Date [...] Overview: Per Obesity Taxonomy Coronary atherosclerosis of [place] coronary artery 09/15/2008 10/03/2008 Malaise and fatigue [...] as of this encounter (statuses as of 09/09/2023) Immunizations Name Administration Dates Next Due COVID-19 mRNA, LNP-s, No Pre serve, 2-Dose Series ([employer]) 11/08/2020,10/11/2020 HEP A - Hepatitis A (Adult > 18 yrs) 04/11/2011, 09/20/2010 Hepatitis B, 20+ yrs 07/05/2015 Pneumococcal Conjugate Vacci ne, 20-valent ([id number]) 03/13/2023 Pneumococcal Polysaccharide PPV23 (Pneumovax) 02/19/2018,03/09/2007 Seasonal [...] Telephone Encounter - Scott Montoya MD - 09/09/2023 10:46 PM EDT Signed Prescriptions: Disp Refills hydrOXYzine HCl 25 MG Oral Tablet 120 Ta*1 Sig: Take 1 tab during the day every 4-6 hours as needed for anxiety and take 2 tabs at bedtime as needed for anxiety Authorizing Provider: SCOTT MONTOYA * Telephone Encounter - Ruby Penn CRNP - 09/09/2023 6:24 PM EDT Pending Prescriptions: Disp Refills hydrOXYzine HCl 25 MG Oral Tablet 120 Ta*1 Sig: Take 1 tab during the day every 4-6 hours as needed for anxiety and take 2 tabs at bedtime as needed for anxiety * Telephone Encounter - Frank Morrissey, [employer] - 09/09/2023 3:28 PM EDT Pending Prescriptions: Disp Refills hydrOXYzine HCl 25 MG Oral Tablet 120 Ta*1 Sig: Take 1 tab during the day every 4-6 hours as needed for anxiety and take 2 tabs at bedtime as needed for anxiety * Telephone Encounter - Frank Morrissey, MED Branch - 09/09/2023 1:29 PM EDT Pending Prescriptions: Disp Refills hydrOXYzine HCl 25 MG Oral Tablet 120 Ta*1 Sig: Take 1 tab during the day every 4-6 hours as needed for anxiety and take 2 tabs at bedtime as needed for anxiety * Telephone Encounter - Debbi Montesinos OSA - 09/09/2023 11:41 AM EDT Did you pend patient's preferred pharmacy and medication before forwarding?yes Pharmacy: [id number] [address] [facility] Pending Prescriptions: Disp Refills hydrOXYzine HCl 25 MG Oral Tablet 120 Ta*1 Sig: Take 1 tab during the day every 4-6 hours as needed for anxiety and take 2 tabs at bedtime as needed for anxiety Last Visit: Visit date not found (in office), Visit date not found (telemedicine) Next Visit: Visit date not found If no future appointments scheduled, and last appointment is greater than a year ago, please schedule patient for a follow-up appointment Last date the medication was ordered: [id number] Is this request for a controlled substance?No [...] Labs: Lab Results Component Value Date/Time CREAT 1.53 (H) 09/08/2023 03:09 PM CREAT 1.1 (H) 06/14/2020 09:00 AM POTASSIUM 4.2 09/08/2023 03:09 PM POTASSIUM 4.2 06/14/2020 09:00 AM POTASSIUM 4.5 07/18/1996 10:50 AM TSH 0.73 04/06/2020 01:20 PM LDLCALC 54 07/23/2023 12:00 PM LDLCALC 62 12/12/2019 09:47 AM LDLDIRECT NOT APPLICABLE 12/12/2019 09:47 AM LDLDIRECT 72 11/28/2015 04:11 PM ALT 14 08/20/2023 11:27 AM ALT 17 06/14/2020 09:00 AM HGBA1C 5.8 (H) 07/23/2023 12:00 PM HGBA1C 7.9 (H) 06/14/2020 09:00 AM documented in this encounter Plan of Treatment Upcoming Encounters Date Type Department Care Team (Late st Contact Info) Description 09/16/2023 1:20 PM EDT Office Visit Neurology [facility] [address] [facility] [place] [address] Yesenia Wayne PA-C [address] [facility] [place] [address] 09/23/2023 2:00 PM EDT Immunization/Injecti on Hematology/Oncolog y Treatment, [place] [address] [place] [phone] Nurse, Med 4 200 [facility] [place] [address] 09/30/2023 9:00 AM EDT Office Visit Pharmacy, [place] [address] [place] [address] Jayesh [facility] [address] [facility] [address] 10/05/2023 8:00 AM EDT Hospital Encounter ENDO [facility], Endoscopy Room [facility] [address] [place], [place] [phone] Aj Pruett, DO [address] [place], [place] [address] 10/05/2023 8:00 AM EDT - 10/05/2023 9:00 AM EDT Surgery ENDO [facility], Endoscopy Room [facility] [address] [place] [address] Aj Pruett, DO [address] [place] [address] COLONOSCOPY FLEXIBLE PROXIMAL DIAGNOSTIC 10/05/2023 12:00 PM EDT Telemedicine Psychiatry, [address], [place] [address] Rj Mai MD [address] [place] [address] 10/12/2023 2:30 PM EDT Office Visit General Surgery, [facility] [address] [place] [address] Mariano Billingsley MD [address] [place] [address] 11/05/2023 1:00 PM EDT Telemedicine Pharmacy, [facility] [address] [place] [address] [facility] [address] [place] [address] 11/24/2023 9:20 AM EDT Office Visit Sleep Disorders Ctr [facility] [address] [place] [phone] Lakisha Murcia, DO [address] [place] [address] 02/09/2024 8:00 AM EDT Telemedicine Gastroenterology, [facility] [address] [place] [address] Charlee Fields MD [address] [place] [address] 02/24/2024 2:15 PM EDT Office Visit Hematology/Oncolog y [facility] [address] [place] [phone] Sunil Bourgeois MD [address] [place] [address] 03/16/2024 12:20 PM EDT Office Visit Family Practice [facility] 132 [facility] [place] [address] Scott Montoya MD 132 [facility] [place] [address] 03/24/2024 12:30 PM EDT Office Visit Ophthalmology, [facility] 132 [facility] [place] [address] Rolan Self, DO 21 [facility] [place] [address] Scheduled Procedures Name Priority Associated Diagnoses Date/Ti [...] 04/12/2018 04/12/2015, 1110/2014, 09/28/2008, Additional history exists COLONOSCOPY-EVERY 5 YRS [...] Additional history exists Lipid Panel 07/23/2028 07/23/2023, 100 09/2021, 12/12/2019, Additional history exists DTaP,Tdap,and Td [...] this encounter Medical Devices Implanted Type Area Associate Professor Of Mathematics Device Identifier Shelf Expiration Date Model / Serial / Lot Neurostimul Intellis Adaptiv - [id number] - [id number] Implanted:Qty: 1 on 08/22/2022 by Rafia Small MD at OR [facility] N/A: Spine Lumbar [employer] 06/21/2023 [id number] / [id number] / Description:battery Medtronic Lead Kit 60 Cm Implanted:Qty: 1 on 08/22/2022 by Rafia Small MD at OR [facility] N/A: Spine Lumbar 02/01/2026 [id number] / / [id number] Medtronic Lead Kit 60cm Implanted:Qty: 1 on 08/22/2022 by Rafia Small MD at OR [facility] N/A: Spine Lumbar 03/21/2026 [id number] / / [id number] Envelope Tyrx Med Antibacteril - [id number] Implanted:Qty: 1 on 08/22/2022 by Rafia Small MD at OR [facility] N/A: Spine Lumbar [employer] 03/10/2023 [id number] / / [id number] documented as of this encounter Advance Directives [...] the patient have Health Care Power of Earth Observations Chief Scientist? No Code Status History Code Status Date Activated Date Inactivated Comments Full Code 01/21/2011 12:12 PM 01/22/2011 8:48 PM This order reflects the patients wishes and were consensually agreed upon. Question Answer Comments Discussion of Advance Directives occurred with: Patient Does the patient have a Living Will? No Does the patient have Health Care Power of Earth Observations Chief Scientist? No Care Teams Registered Dental Assistant Rda Relationship Specialty Start Date End Date Scott Montoya MD [address] [place] [address] PCP - General Family Medicine 08/03/18 documented as of this encounter
--- OUTSIDE RECORDS SUMMARY | 2024-02-02 09:02 | External Medical Summary ---
Author Name Unknown Address Unknown Organization K01:LABORATORY [address] [facility] [address] Laboratory Report Ordering Provider Test Date Status [place] 09/08/2023 15:19:00 Final Observation Date Value Abnormality Reference (Units ) Status Human papilloma virus E6+E7 mRNA [Presence] in Cervix by MILLIE with probe detection 09/08/2023 15:19:00 Negative Not Applicable Final No high/intermediate-risk Hu man Papillomavirus (HPV E6/E7 messenger RNA) detected by nucleic acid amplification.

This assay looks for high/intermediate risk Human Papillomavirus (HPV E6/E7 messenger RNA) by nucleic acid amplification. This assay includes the qualitative detection of HPV types 16,18,31,33,35,39,45,51,52,56,58,59,66 and 68 from cervical specimens.
This assay has been FDA cleared for Thin prep collection vials.
This assay has not been approved for use as a primary screening test for HPV and should be tested in conjunction with a PAP screen.
If collected utilizing a Surepath vial, the collection and specimen preparation of this test was developed, and its performance characteristics determined by [employer]. It has not been cleared or approved by the U.S. Food and Drug Administration (FDA). The FDA has determined that such clearance or approval is not necessary.
This assay has been performed at [email or web address] [email or web address] Formerly [facility], [address] [place] [address], [place]. [address]. Performing Location LABORATORY [address] [facility] [address]
--- OUTSIDE RECORDS SUMMARY | 2024-02-02 09:02 | External Medical Summary ---
Author Name Unknown Address Unknown Organization [id number]:[facility] - [address] [place] [address] Laboratory Report Ordering Provider Test Date Status GUS KENNEDY 09/08/2023 15:09:43 Final
null Observation Date Value Abnormality Reference (Units ) Status BUN 09/08/2023 15:09:43 22 Above high normal 6-20 (mg/dL) Final Creatinine 09/08/2023 15:09:43 1.53 Above high normal 0.5-1.0 (mg/dL) Final Glomerular filtration rate/1.73 sq M.predicted [Volume Rate/Area] in Serum, Plasma or Blood by Creatinine-based formula (CKD-EPI) 09/08/2023 15:09:43 41 Below low normal >=60 (mL/min) Final eGFR is calculated based on the CKD-EPI 2020 equation Sodium 09/08/2023 15:09:43 142 135-146 (m mol/L) Final Potassium 09/08/2023 15:09:43 4.2 3.5-5.1 (m mol/L) Final Cl 09/08/2023 15:09:43 101 98-107 (mm ol/L) Final CO2 09/08/2023 15:09:43 29 22-32 (mmo l/L) Final Anion gap 09/08/2023 15:09:43 12 7-15 (mmol /L) Final Glucose 09/08/2023 15:09:43 85 70-120 (mg /dL) Final Calcium 09/08/2023 15:09:43 9.1 8.4-10.2 ( mg/dL) Final Performing Location [facility] 0 - [address] [place] [address]
--- OUTSIDE RECORDS SUMMARY | 2024-02-02 09:02 | External Medical Summary ---
Author Name Unknown Address Unknown Organization [id number]:[facility] [place] - [address] [place] [address] Laboratory Report Ordering Provider Test Date Status GUS KENNEDY 09/08/2023 15:09:43 Final Observation Date Value Abnormality Reference (Units ) Status Vitamin B12 09/08/2023 15:09:43 [phone] (pg/mL) Final Performing Location [facility] - [address] [place] [address]
--- OUTSIDE RECORDS SUMMARY | 2024-02-02 09:02 | External Medical Summary | Summary of Care ---
Author Name Unknown Organization [facility] Address [address] [facility] [place] [address] Phone [phone] Care Team Providers Care Wildlife Ecologist Name Role Phone Scott Weldon MD Primary Care Provider + Encounter Details Date Type Department Care Team (Late st Contact Info) Description 09/03/2023 Population Health External Data Unspecified Department Allergies [...] [facility]) Use as directed. 0 8 [...] Overview: Per Obesity Taxonomy Coronary atherosclerosis of [place] coronary artery 09/15/2008 10/03/2008 Malaise and fatigue [...] mRNA, LNP-s, No Pre serve, 2-Dose Series (Sassor) 11/08/2020,10/11/2020 HEP A - Hepatitis A (Adult > 18 yrs) 04/11/2011, 09/20/2010 Hepatitis B, 20+ yrs 07/05/2015 Pneumococcal Conjugate Vacci ne, 20-valent ([id number]) 03/13/2023 Pneumococcal Polysaccharide PPV23 (Pneumovax) 02/19/2018,03/09/2007 Seasonal [...] Department Care Team (Latest Contact Info) Description 09/08/2023 2:40 PM EDT Office Visit Family Practice [facility] [address] [place] [address] Jadiel Epstein CRNP [address] [place] [address] 09/16/2023 1:20 PM EDT Office Visit Neurology [facility] [place] [address] [address] Yesenia Wayne PA-C [address] [address] 09/23/2023 2:00 PM EDT Immunization/Injecti on Hematology/Oncolog y Treatment, [place] [address] [place] [phone] Nurse, Med [address] [address] 09/30/2023 9:00 AM EDT Office Visit Pharmacy, [address], [place] [address] [place] [address] [address] [facility], [place] [address] 10/05/2023 8:00 AM EDT Hospital Encounter ENDO [facility], Endoscopy Room [facility] [address] [place] [phone] Aj Pruett, DO [address] [place] [address] 10/05/2023 8:00 AM EDT - 10/05/2023 9:00 AM EDT Surgery ENDO [facility], Endoscopy Room [facility] [address] [place] [phone] Aj Pruett, DO [address] [place] [address] COLONOSCOPY FLEXIBLE PROXIMAL DIAGNOSTIC 10/05/2023 12:00 PM EDT Telemedicine Psychiatry, [address], [place] [address] Rj Mai MD [address] [place] [address] 11/05/2023 1:00 PM EDT Telemedicine Pharmacy, [facility] [address] [place] [address] [facility] [address] [place] [address] 11/24/2023 9:20 AM EDT Office Visit [facility] [place] [address] [place] [phone] Lakisha Murcia, DO [address] [place] [address] 02/09/2024 8:00 AM EDT Telemedicine Gastroenterology, [facility] [address] [place], [place] [phone] Charlee Fields MD [address] [facility], [place] [address] 02/24/2024 2:15 PM EDT Office Visit Hematology/Oncolog y [facility] [address] [place] [address] Sunil Bourgeois MD [address] [place] [address] 03/16/2024 12:20 PM EDT Office Visit Family Practice [facility] [address] [facility] [address] Scott Weldon MD [address] [place] [address] Scheduled Procedures Name Priority Associated Diagnoses Date/Ti [...] this encounter Medical Devices Implanted Type Area Bonderizer Operator Device Identifier Shelf Expiration Date Model / Serial / Lot Neurostimul Intellis Adaptiv - [id number] - [id number] Implanted:Qty: 1 on 08/22/2022 by Rafia Small MD at OR [facility] N/A: Spine Lumbar [employer] 06/21/2023 [id number] / [id number] / Description:battery Medtronic Lead Kit 60 Cm Implanted:Qty: 1 on 08/22/2022 by Rafia Small MD at OR [facility] N/A: Spine Lumbar 02/01/2026 [id number] / / [id number] Medtronic Lead Kit 60cm Implanted:Qty: 1 on 08/22/2022 by Rafia Small MD at OR [facility] N/A: Spine Lumbar 03/21/2026 [id number] / / [id number] Envelope Tyrx Med Antibacteril - [id number] Implanted:Qty: 1 on 08/22/2022 by Rafia Small MD at OR [facility] N/A: Spine Lumbar [employer] 03/10/2023 [id number] / / [id number] documented as of this encounter Advance Directives [...] the patient have Health Care Power of Drier Operator Helper? No Code Status History Code Status Date Activated Date Inactivated Comments Full Code 01/21/2011 12:12 PM 01/22/2011 8:48 PM This order reflects the patients wishes and were consensually agreed upon. Question Answer Comments Discussion of Advance Directives occurred with: Patient Does the patient have a Living Will? No Does the patient have Health Care Power of Drier Operator Helper? No Care Teams Wildlife Ecologist Relationship Specialty Start Date End Date Scott Weldon MD [address] [facility] [place] [address] PCP - General Family Medicine 08/03/18 documented as of this encounter
--- OUTSIDE RECORDS SUMMARY | 2024-02-02 09:02 | External Medical Summary | Summary of Care ---
Author Name Unknown Organization [facility] Address [address] [place] [address] Phone [phone] Care Team Providers Care Bag Bailer Name Role Phone Scott Weldon MD Primary Care Provider + Encounter Details Date Type Department Care Team (Late st Contact Info) Description 08/25/2023 9:30 AM EDT Telemedicine Psychiatry, [address] [address] Rj Mai MD [address] [place] [address] MICHELLE (generalized anxiety disorder)* Allergies Active Allergy Reactions Criticality Noted Date Comments Naproxen Sodium Bleeding High 11/29/2013 Pollen 12/03/2022 Seasonal Food (See Comments) Anaphylaxis High 04/20/2019 Hot peppers (oils) Kiwi Extract Anaphylaxis High 04/20/2019 documented as of this encounter (statuses as of 09/02/2023) Medications Medication Sig Dispensed Refills Start Date [...] hemoglobin A1c goal of less than 8.0% ([facility]) Use as directed. 0 8 Active CPAP [...] overdose. Seek immediate medical attention. https://www.youtub e.com/watch?v=v26c Bii8OoN 1 Each 3 3 Active Atenolol 100 [...] the morning. 90 Tablet 1 4 Active Insulin Syringe-Needle U-100 (BD INSULIN SYRINGE) 30G X 1/2" 0.5 ML MISC 3 daily injection in case of pump malfunction 100 Box Dosing Unit 3 6 09/02/19 24 Discontinu ed(End of Procedure) Insulin Pen Needle (BD PEN NEEDLE MINI U/F) 31G X 5 MMIndications:Type 2 diabetes mellitus with hemoglobin A1c goal of less than 8.0% ([facility]) Use with Victoza once daily 100 Each 5 8 09/02/19 24 Discontinu ed(End of Procedure) Omeprazole 20 MG Oral Capsule Delayed Release (PriLOSEC)Indicatio ns:Gastroesophageal reflux disease without esophagitis TAKE 1 CAPSULE BY MOUTH TWICE A DAY 180 Capsule 1 3 09/01/19 24 Discontinu ed(Medicat ion/Dose Changed) Escitalopram Oxalate 20 MG Oral Tablet (Lexapro) Take 1 Tablet by mouth in the morning. 90 Tablet 0 4 08/25/19 24 Discontinu ed(Refill) Pantoprazole Sodium 40 MG Oral Tablet Delayed Release (Protonix) Take 1 Tablet by mouth in the morning. 0 09/01/19 24 Discontinu ed(Refill) documented as of this encounter (statuses as of 09/02/2023) Active Problems Problem Noted Date Diagnosed Date [...] as of this encounter (statuses as of 09/02/2023) Resolved Problems Problem Noted Date Diagnosed Date [...] Overview: Per Obesity Taxonomy Coronary atherosclerosis of [place] coronary artery 09/15/2008 10/03/2008 Malaise and [...] as of this encounter (statuses as of 09/02/2023) Immunizations Name Administration Dates Next Due COVID-19 mRNA, LNP-s, No Pre serve, 2-Dose Series (BrandShield) 11/08/2020,10/11/2020 HEP A - Hepatitis A (Adult > 18 yrs) 04/11/2011, 09/20/2010 Hepatitis B, 20+ yrs 07/05/2015 Pneumococcal Conjugate Vacci ne, 20-valent ([id number]) 03/13/2023 Pneumococcal Polysaccharide PPV23 (Pneumovax) 02/19/2018,03/09/2007 Seasonal [...] Progress Notes * Rj Mai MD - 08/25/2023 9:30 AM EDT Patient location: HOME. I was not in a hospital or clinic location. After connecting through Chartio[employer], patient was verified with two unique identifiers. Patient (or authorized legal guest service representative) was then informed that this was a Telemedicine visit and being conducted confidentially over secure lines. Methods to assure confidentiality were taken. Patient acknowledged consent and understanding of privacy and security of the Telemedicine visit. The patient agreed to participate. PSYCHOTHERAPY & MEDICATION MANAGEMENT RETURN VISIT NOTE CHIEF COMPLAINT: f/u appt INTERVAL HISTORY: she states she is "not good". She states sleep is much better. She continues thather MIL moved out. She thinks this is positive overall; however, she does care about her and was helpful with transportation to [facility]. She shares some details about recent hospitalization-- admitted to [facility] 08/10-08/13 for hematemesis ROS EXAM: negative except as noted above [...] for suspectedopioid overdose. Seek immediate medical attention. https://www.youtube.com/watch?v=g67yGlv6YaW 1 Each 3 Omeprazole 20 MG Oral Capsule Delayed Release (PriLOSEC) TAKE 1 CAPSULE BY MOUTH TWICE A DAY (Patient not taking: Reported on 08/20/2023) 180 Capsule 1 Atenolol 100 MG Oral [...] DAY IN THE MORNING 90 Tablet 1 NovoLIN R ReliOn 100 [...] AND EVENING MEALS 180 Tablet 1 Eszopiclone 2 MG Oral [...] by mouth in the morning. 90 Tablet 0 hydrOXYzine HCl 25 MG Oral Tablet Take 1 tab during the day every 4-6 hours as needed for anxiety and take 2 tabs at bedtime as needed for anxiety 120 Tablet 1 metroNIDAZOLE 500 MG Oral Tablet Take 1 Tablet by mouth in the morning and 1 Tablet at noon and 1 Tablet before bedtime. Cefdinir 300 MG Oral Capsule (Omnicef) Take 1 Capsule by mouth in the morning and 1 Capsule before bedtime. Pantoprazole Sodium 40 MG Oral Tablet Delayed Release (Protonix) Take 1 Tablet by mouth in the morning. No current facility-administered medications for this visit. [...] PLAN : - Continue Lexapro 20 daily for depression [...] Department Care Team (Latest Contact Info) Description 09/02/2023 2:00 PM EDT Imaging Radiology [facility] [address] [place] [address] 09/08/2023 2:40 PM EDT Office Visit Family Practice [facility] [address] [place] [address] Jadiel Epstein CRNP [address] [place] [address] 09/16/2023 1:20 PM EDT Office Visit Neurology [facility] [address] [facility] [place] [address] Yesenia Wayne PA-C [address] [facility] [place] [address] 09/23/2023 2:00 PM EDT Immunization/Injecti on Hematology/Oncolog y Treatment, [place] [address] [place] [phone] Nurse, Med 200 [facility] [place] [address] 09/30/2023 9:00 AM EDT Office Visit Pharmacy, [address] [address] [place] [address] [place] [address] 10/05/2023 8:00 AM EDT Hospital Encounter [facility], Endoscopy Room [facility] [address] [place] [phone] Aj Pruett, DO [address] [place] [address] 10/05/2023 8:00 AM EDT - 10/05/2023 9:00 AM EDT Surgery ENDO [facility], Endoscopy Room [facility] [address] [place] [phone] Aj Pruett, DO [address] [place] [address] COLONOSCOPY FLEXIBLE PROXIMAL DIAGNOSTIC 10/05/2023 12:00 PM EDT Telemedicine Psychiatry, [facility] [address] [facility] [place] [address] Rj Mai MD [address] [place], [place] [phone] 11/05/2023 1:00 PM EDT Telemedicine Pharmacy, [facility] 132 [place] [address] [facility] 132 [place] [address] 02/09/2024 8:00 AM EDT Telemedicine Gastroenterology, [address] [address] Charlee Fields MD [address] [place] [address] 02/24/2024 2:15 PM EDT Office Visit Hematology/Oncolog y [facility] 200 [facility] [place] [phone] Sunil Bourgeois MD 200 [facility] [place] [address] 03/16/2024 12:20 PM EDT Office Visit Family Practice [facility] 132 [facility] [place] [address] Scott Weldon MD [facility] [place] [address] Scheduled Procedures Name Priority Associated Diagnoses Date/Ti [...] 08/26/2024 08/27/2023, 08/06, 07/23/2023, Additional history exists Lipid Panel 07/23/2028 07/23/2023, [...] this encounter Medical Devices Implanted Type Area Hydraulic Riveter Device Identifier Shelf Expiration Date Model / Serial / Lot Neurostimul Intellis Adaptiv - [id number] - [id number] Implanted:Qty: 1 on 08/22/2022 by Rafia Small MD at OR [facility] N/A: Spine Lumbar [employer] 06/21/2023 [id number] / [id number] / Description:battery Medtronic Lead Kit 60 Cm Implanted:Qty: 1 on 08/22/2022 by Rafia Small MD at OR [facility] N/A: Spine Lumbar 02/01/2026 [id number] / / [id number] Medtronic Lead Kit 60cm Implanted:Qty: 1 on 08/22/2022 by Rafia Small MD at OR [facility] N/A: Spine Lumbar 03/21/2026 [id number] / / [id number] Envelope Tyrx Med Antibacteril - [id number] Implanted:Qty: 1 on 08/22/2022 by Rafia Small MD at OR [facility] N/A: Spine Lumbar [employer] 03/10/2023 [id number] / / [id number] documented as of this encounter Visit Diagnoses Diagnosis MICHELLE (generalized anxiety disorder)- Primary Generalized anxiety disorder Colon cancer screening Special screening for malignant [...] the patient have Health Care Power of Tanning Salon Attendant? No Code Status History Code Status Date Activated Date Inactivated Comments Full Code 01/21/2011 12:12 PM 01/22/2011 8:48 PM This order reflects the patients wishes and were consensually agreed upon. Question Answer Comments Discussion of Advance Directives occurred with: Patient Does the patient have a Living Will? No Does the patient have Health Care Power of Tanning Salon Attendant? No Care Teams Bag Bailer Relationship Specialty Start Date End Date Scott Weldon MD [address] [place] [address] PCP - General Family Medicine 08/03/18 documented as of this encounter
--- OUTSIDE RECORDS SUMMARY | 2024-02-02 09:03 | External Medical Summary ---
Author Name Unknown Address Unknown Organization K01:[facility] - [facility] [address] [place] [address] Laboratory Report Ordering Provider Test Date Status MILA KNIGHT 08/27/2023 09:53:30 Final Observation Date Value Abnormality Reference (Units ) Status BUN 08/27/2023 09:53:30 18 6-20 (mg/dL) Final Creatinine 08/27/2023 09:53:30 1.4 Above high normal 0.5-1.0 (mg/dL) Final Glomerular filtration rate/1.73 sq M.predicted [Volume Rate/Area] in Serum, Plasma or Blood by Creatinine-based formula (CKD-EPI) 08/27/2023 09:53:30 45 Below low normal >=60 (mL/min) Final eGFR is calculated based on the CKD-EPI 2020 equation Sodium 08/27/2023 09:53:30 141 135-146 (m mol/L) Final Potassium 08/27/2023 09:53:30 4.6 3.5-5.1 (m mol/L) Final Cl 08/27/2023 09:53:30 102 98-107 (mm ol/L) Final CO2 08/27/2023 09:53:30 30 22-32 (mmo l/L) Final Anion gap 08/27/2023 09:53:30 9 7-15 (mmol /L) Final Glucose 08/27/2023 09:53:30 151 Above high normal 70 -120 (mg/dL) Final Calcium 08/27/2023 09:53:30 8.8 8.4-10.2 ( mg/dL) Final Albumin 08/27/2023 09:53:30 4.0 3.8-5.0 (g /dL) Final Phosphate 08/27/2023 09:53:30 2.8 2.5-4.8 (m g/dL) Final Performing Location [facility] - [address] [place] [address]
--- OUTSIDE RECORDS SUMMARY | 2024-02-02 09:03 | External Medical Summary ---
Author Name Unknown Address Unknown Organization K01:[facility] [place] - [address] [place] [address] Laboratory Report Ordering Provider Test Date Status LUIS ANTONIO LEIVA 08/27/2023 09:53:30 Final Observation Date Value Abnormality Reference (Units ) Status Ferritin 08/27/2023 09:53:30 139 13-150 (ng /mL) Final Postmenopausal women have hi gher ferritin levels than pre-menopausal women. The above reference interval is based on pre-menopausal women. Performing Location [facility] [place] - [address] [place] [address]
--- OUTSIDE RECORDS SUMMARY | 2024-02-02 09:03 | External Medical Summary ---
Author Name Unknown Address Unknown Organization K01:[facility] [place] - [address] [place] [address] Laboratory Report Ordering Provider Test Date Status LUIS ANTONIO LEIVA 08/27/2023 09:53:30 Final Observation Date Value Abnormality Reference (Units ) Status SYNC LEUKOCYTES IN BLOOD BY AUTOMATED COUNT 08/27/2023 09:53:30 5.65 4.00-10.80 (K/uL) Final Segs 08/27/2023 09:53:30 65.0 40.0-75.0 (%) Final Lymphs % 08/27/2023 09:53:30 23.2 18.0-42.0 (%) Final Monos 08/27/2023 09:53:30 7.3 1.0-11.0 (%) Final Eosinophils 08/27/2023 09:53:30 3.0 0.0-6.0 (%) Final Basos 08/27/2023 09:53:30 1.1 0.0-2.0 (%) Final Immature Granulocyte, Percent 08/27/2023 09:53:30 0.4 0.0-2.0 (%) Final Absolute Segs 08/27/2023 09:53:30 3.68 1.80-7.70 (K/uL) Final Lymphs, absolute 08/27/2023 09:53:30 1.31 1.00-4.80 (K/ul) Final Monos, Abs 08/27/2023 09:53:30 0.41 0.00-1.10 (K/uL) Final Eos, Abs 08/27/2023 09:53:30 0.17 0.00-0.70 (K/uL) Final Basos, Abs 08/27/2023 09:53:30 0.06 0.00-0.20 (K/uL) Final Immature Granulocytes, Number 08/27/2023 09:53:30 0.02 0.00-0.20 (K/uL) Final Performing Location LAB[facility]ORY [facility] - [facility] [place] [address]
--- OUTSIDE RECORDS SUMMARY | 2024-02-02 09:03 | External Medical Summary | Summary of Care ---
Author Name Unknown Organization [facility] Address [address] [facility] [place] [address] Phone [phone] Care Team Providers Care Grinder Needle Tip Name Role Phone Scott Weldon MD Primary Care Provider + Reason for Visit * Reason Onset Date Comments Outpatient Testing 08/12/2023 Encounter Details Date Type Department Care Team (Late st Contact Info) Description 08/12/2023 Telephone Gastroenterology, [address] [phone] Kayla Bennett PA-C [facility] [place] [address] Outpatient Testing Allergies Active Allergy Reactions Criticality Noted Date Comments Naproxen Sodium Bleeding High 11/29/2013 Pollen 12/03/2022 Seasonal Food (See Comments) Anaphylaxis High 04/20/2019 Hot peppers (oils) Kiwi Extract Anaphylaxis High 04/20/2019 documented as of this encounter (statuses as of 08/24/2023) Medications Medication Sig Dispensed Refills Start Date [...] suspected opioid overdose. Seek immediate medical attention. [email or web address] 1 Each 3 3 Active Omeprazole 20 MG Oral Capsule Delayed Release (PriLOSEC)Indicatio ns:Gastroesophageal reflux disease without esophagitis TAKE 1 CAPSULE BY MOUTH TWICE A DAY 180 Capsule 1 3 Active Additional Information Patient not taking.Reported on 08/20/2023 Atenolol 100 MG Oral Tablet (Tenormin)Indicatio ns:Tachycardia [...] (Glucophage)Indicat ions:DM type 2, not at goal ([facility]) TAKE 1 TABLET BY MOUTH 2 TIMES [...] FOR NAUSEA 30 Tablet 0 4 Active Escitalopram Oxalate 20 MG Oral Tablet (Lexapro) Take 1 Tablet by mouth in the morning. 90 Tablet 1 3 08/17/19 24 Discontinu ed(Refill) hydrOXYzine HCl 25 MG Oral Tablet Take 1 tab during the day every 4-6 hours as needed for anxiety and take 2 tabs at bedtime as needed for anxiety 120 Tablet 3 3 08/17/19 24 Discontinu ed(Refill) Buprenorphine 5 MCG/HR Transdermal Patch Weekly (Butrans) Place 1 Patch topically on the skin once a week. 4 Patch 0 4 08/17/19 24 Discontinu ed(Refill) documented as of this encounter (statuses as of 08/24/2023) Active Problems Problem Noted Date Diagnosed Date [...] as of this encounter (statuses as of 08/24/2023) Resolved Problems Problem Noted Date Diagnosed Date [...] Per Obesity Taxonomy Coronary atherosclerosis of [place] coronary artery 09/15/2008 10/03/2008 Malaise and fatigue [...] as of this encounter (statuses as of 08/24/2023) Immunizations Name Administration Dates Next Due COVID-19 mRNA, LNP-s, No Pre serve, 2-Dose Series ([employer]) 11/08/2020,10/11/2020 HEP A - Hepatitis A (Adult > 18 yrs) 04/11/2011, 09/20/2010 Hepatitis B, 20+ yrs 07/05/2015 Pneumococcal Conjugate Vacci ne, 20-valent ([id number]) 03/13/2023 Pneumococcal Polysaccharide PPV23 (Pneumovax) 02/19/2018,03/09/2007 Seasonal [...] encounter Miscellaneous Notes * Telephone Encounter - Isidra Allen OSA - 08/24/2023 10:58 AM EDT Pt is scheduled on 10/04 @ 7 AM with . Instructions were sent to [facility] and will be mailed. * Telephone Encounter - Kayla Bennett PA-C - 08/12/2023 2:57 PM EST Pt admitted to [facility] for hematemesis/BRBPR. Please schedule OP EGD/colonoscopy in approx 6-8 weeks - Please arrange OP hepatology follow-up for her liver disease - pt normally sees Dr. Fields in [place] and is over due to see him. Thanks, Kayla Bennett PA-C 08/12/2023 Department of Gastroenterology documented in this encounter Plan of Treatment Upcoming Encounters Date Type Department Care Team (Latest Contact Info) Description 08/25/2023 9:30 AM EDT Telemedicine Psychiatry, [facility] [address] [facility] [place] [address] Rj Mai MD [address] [place] [address] 08/31/2023 11:40 AM EDT Laboratory Laboratory, [place] [address] [place] [phone] [place], Laboratory [address] [place] [address] 08/31/2023 6:10 PM EDT Pharmacy Pharmacy, [place] [address] [place] [address] [facility] [address] [place] [address] 09/02/2023 2:00 PM EDT Imaging Radiology [facility], [place] [address] [facility] [place] [address] 09/16/2023 1:20 PM EDT Office Visit Neurology [facility] [place] [address] [facility] [place] [address] Yesenia Wayne PA-C [address] [facility] [place] [address] 09/23/2023 2:00 PM EDT Immunization/Injecti on Hematology/Oncolog y Treatment, [place] [address] [facility] [place] [phone] Nurse, Med 4 [facility] [place] [address] 10/05/2023 8:00 AM EDT Hospital Encounter ENDO [facility], Endoscopy Room [facility] [address] [place], [place] [phone] Aj Pruett, DO [address] [place] [address] 10/05/2023 8:00 AM EDT - 10/05/2023 9:00 AM EDT Surgery ENDO [facility], Endoscopy Room [facility] [address] [place] [phone] Aj Pruett, DO [address] [place] [address] COLONOSCOPY FLEXIBLE PROXIMAL DIAGNOSTIC 11/05/2023 1:00 PM EDT Telemedicine Pharmacy, [facility] [address] [place] [address] [facility] [address] [place] [address] 02/24/2024 2:15 PM EDT Office Visit Hematology/Oncolog y Roney Melendez [place] [facility] [place] [phone] Sunil Bourgeois MD [address] [facility] [place] [address] 03/16/2024 12:20 PM EDT Office Visit Family Practice [facility] [address] [place] [address] Scott Weldon MD [address] [place] [address] Scheduled Orders Name Type Priority Associated Diagnoses Orde r Schedule EGD, FLEXIBLE, DIAGNOSTIC Procedures Routine Hematemesis without nausea BRBPR (bright red blood per rectum) Ordered: 08/12/2023 COLONOSCOPY Gastro Lower Routine Hematemesis without nausea BRBPR (bright red blood per rectum) Ordered: 08/12/2023 Scheduled Procedures Name Priority Associated Diagnoses Date/Ti [...] 07/23/20242 024, 04/06/2023, 03/11/2022, Additional history exists GFR 08/19/2024 08/20/2023, 07/09, 12/03/2022, Additional history exists Lipid Panel 07/23/2028 07/23/2023, [...] this encounter Medical Devices Implanted Type Area Writer Producer Device Identifier Shelf Expiration Date Model / Serial / Lot Neurostimul Intellis Adaptiv - [id number] - [id number] Implanted:Qty: 1 on 08/22/2022 by Rafia Small MD at OR [facility] N/A: Spine Lumbar [employer] 06/21/2023 [id number] / [id number] / Description:battery Medtronic Lead Kit 60 Cm Implanted:Qty: 1 on 08/22/2022 by Rafia Small MD at OR [facility] N/A: Spine Lumbar 02/01/2026 [id number] / / [id number] Medtronic Lead Kit 60cm Implanted:Qty: 1 on 08/22/2022 by Rafia Small MD at OR [facility] N/A: Spine Lumbar 03/21/2026 [id number] / / [id number] Envelope Tyrx Med Antibacteril - [id number] Implanted:Qty: 1 on 08/22/2022 by Rafia Small MD at OR [facility] N/A: Spine Lumbar [employer] 03/10/2023 [id number] / / [id number] documented as of this encounter Visit Diagnoses Diagnosis Hematemesis without nausea- Primary BRBPR (bright red blood per rectum) Hemorrhage of rectum and anus Colon cancer screening Special screening for malignant [...] patient have Health Care Power of County Engineer? No Code Status History Code Status Date Activated Date Inactivated Comments Full Code 01/21/2011 12:12 PM 01/22/2011 8:48 PM This order reflects the patients wishes and were consensually agreed upon. Question Answer Comments Discussion of Advance Directives occurred with: Patient Does the patient have a Living Will? No Does the patient have Health Care Power of County Engineer? No Care Teams Grinder Needle Tip Relationship Specialty Start Date End Date Scott Weldon MD [address] [facility] [place] [address] PCP - General Family Medicine 08/03/18 documented as of this encounter
--- OUTSIDE RECORDS SUMMARY | 2024-02-02 09:03 | External Medical Summary ---
Author Name Unknown Address Unknown Organization [id number]:LABORATORY [facility] - [facility] [address] [place] [address] Laboratory Report Ordering Provider Test Date Status LUIS ANTONIO LEIVA 08/27/2023 09:53:30 Final Observation Date Value Abnormality Reference (Units ) Status WBC, Total 08/27/2023 09:53:30 5.65 4.00-10.80 (K/uL) Final RBC 08/27/2023 09:53:30 4.33 3.85-5.15 (M/uL) Final Hemoglobin 08/27/2023 09:53:30 12.3 12.0-15.3 (g/dL) Final HCT 08/27/2023 09:53:30 38.2 36.0-45.2 (%) Final MCV 08/27/2023 09:53:30 88.2 81.5-97.5 (fL) Final MCH 08/27/2023 09:53:30 28.4 27.0-34.0 (pg) Final MCHC 08/27/2023 09:53:30 32.2 32.0-36.0 (g/dL) Final RDW 08/27/2023 09:53:30 14.6 11.5-15.5 (%) Final Platelets 08/27/2023 09:53:30 94 Below low normal 140-400 (K/uL) Final MPV 08/27/2023 09:53:30 10.4 6.6-11.1 (fL) Final Nucleated erythrocytes/100 leukocytes [Ratio] in Blood by Automated count 08/27/2023 09:53:30 0 <=0 (/100 WBCs) Final Performing Location LABORATORY [facility] - [address] [place] [address]
--- OUTSIDE RECORDS SUMMARY | 2024-02-02 09:03 | External Medical Summary ---
Author Name Unknown Address Unknown Organization [id number]:LABORATORY [facility] - [facility] [address] [place] [address] Laboratory Report Ordering Provider Test Date Status LUIS ANTONIO LEIVA 08/27/2023 09:53:30 Final Observation Date Value Abnormality Reference (Units ) Status Iron 08/27/2023 09:53:30 76 33-151 (ug/dL) Final Iron-binding capacity 08/27/2023 09:53:30 248 Below low normal 250-425 (ug/dL) Final Transferrin Sat % 08/27/2023 09:53:30 31 15-55 (%) Final Performing Location LABORATORY [facility] - [facility] [address] [place] [address]
--- OUTSIDE RECORDS SUMMARY | 2024-02-02 09:03 | External Medical Summary | Summary of Care ---
Author Name Unknown Organization [facility] Address [address] [place] [address] Phone [phone] Care Team Providers Care Seo Analyst Name Role Phone Scott Weldon MD Primary Care Provider + Reason for Visit * Reason Comments Outpatient Testing Encounter Details Date Type Department Care Team (Late st Contact Info) Description 08/27/2023 10:00 AM EDT Laboratory Laboratory, [place] [address] [place] [address] [place], [facility] [address] [place] [address] Cirrhosis of liver without ascites, unspecified hepatic cirrhosis type (HCC); Iron deficiency anemia, unspecified iron deficiency anemia type; EVA (acute kidney injury) ([facility]) Allergies Active Allergy Reactions Criticality Noted Date Comments Naproxen Sodium Bleeding High 11/29/2013 Pollen 12/03/2022 Seasonal Food (See Comments) Anaphylaxis High 04/20/2019 Hot peppers (oils) Kiwi Extract Anaphylaxis High 04/20/2019 documented as of this encounter (statuses as of 08/27/2023) Medications Medication Sig Dispensed Refills Start Date End Date Status ONETOUCH ULTRASOFT LANCETS MISCIndications:DM type 2, not at goal ([facility]) check FS 6 times daily 4 Box [...] Dosing Unit 3 6 Active Glucose Blood ([employer] CONTOUR NEXT TEST) STRP Use to test [...] suspected opioid overdose. Seek immediate medical attention. [email or web address] 1 Each 3 3 Active Omeprazole 20 MG Oral Capsule Delayed Release (PriLOSEC)Indication s:Gastroesophageal reflux disease without esophagitis TAKE 1 CAPSULE BY MOUTH TWICE A DAY 180 Capsule 1 3 Active Additional Information Patient not taking.Reported on 08/20/2023 Atenolol 100 MG Oral Tablet (Tenormin)Indication s:Tachycardia [...] goal of less than 8.0% ([facility]),DM type 2, not at goal ([facility]) INJECT UP TO 200 UNITS SUBCUTANEOSULY ONCE [...] type 2, not at goal ([facility]) TAKE 1 TABLET BY MOUTH 2 TIMES [...] and 1 Capsule before bedtime. 0 Active Pantoprazole Sodium 40 MG Oral Tablet Delayed Release (Protonix) Take 1 Tablet by mouth in the morning. 0 Active Escitalopram Oxalate 20 MG Oral Tablet (Lexapro) Take 1 Tablet by mouth in the morning. 90 Tablet 1 4 Active documented as of this encounter (statuses as of 08/27/2023) Active Problems Problem Noted Date Diagnosed Date [...] as of this encounter (statuses as of 08/27/2023) Resolved Problems Problem Noted Date Diagnosed Date [...] Overview: Per Obesity Taxonomy Coronary atherosclerosis of [place] coronary artery 09/15/2008 10/03/2008 Malaise and fatigue [...] as of this encounter (statuses as of 08/27/2023) Immunizations Name Administration Dates Next Due COVID-19 mRNA, LNP-s, No Pre serve, 2-Dose Series ([employer]) 11/08/2020,10/11/2020 HEP A - Hepatitis A (Adult > 18 yrs) 04/11/2011, 09/20/2010 Hepatitis B, 20+ yrs 07/05/2015 Pneumococcal Conjugate Vacci ne, 20-valent ([id number]) 03/13/2023 Pneumococcal Polysaccharide PPV23 (Pneumovax) 02/19/2018,03/09/2007 Seasonal [...] Department Care Team (Latest Contact Info) Description 08/31/2023 11:40 AM EDT Laboratory Laboratory, [place] [address] [place] [phone] [place], [facility] [address] [place] [address] 09/02/2023 9:00 AM EDT Office [facility], [place] [address] [facility] [address] [facility] [address] [facility] [place] [address] 09/02/2023 2:00 PM EDT Imaging Radiology [facility] [address] [place] [address] 09/08/2023 2:40 PM EDT Office Visit Family Practice [facility] [address] [place] [address] Jadiel Epstein CRNP [address] [place] [address] 09/16/2023 1:20 PM EDT Office Visit Neurology [facility] [address] [facility] [place] [address] Yesenia Wayne PA-C [address] [facility] [place] [address] 09/23/2023 2:00 PM EDT Immunization/Injecti on Hematology/Oncolog y Treatment, [place] [address] [place] [address] Nurse, Med 4 [address] [facility] [place] [address] 10/05/2023 8:00 AM EDT Hospital Encounter ENDO [facility], Endoscopy Room [facility] [address] [place] [phone] Aj Pruett DO [address] [place] [address] 10/05/2023 8:00 AM EDT - 10/05/2023 9:00 AM EDT Surgery ENDO [facility], Endoscopy Room [facility] [address] [place], [place] [phone] Aj Pruett DO [address] [place], [place] [address] COLONOSCOPY FLEXIBLE PROXIMAL DIAGNOSTIC 10/05/2023 12:00 PM EDT Telemedicine Psychiatry, [facility] [address] [facility] [place] [address] Rj Mai MD [address] [place] [address] 11/05/2023 1:00 PM EDT Telemedicine Pharmacy, [facility] [address] [facility] [place] [address] [facility] [address] [place] [address] 02/09/2024 8:00 AM EDT Telemedicine Gastroenterology, [address] [place] [address] Charlee Fields MD [address] [place], [place] [address] 02/24/2024 2:15 PM EDT Office Visit Hematology/Oncolog y [facility] [place] [address] [facility] [place] [phone] Sunil Bourgeois MD [address] [facility] [place] [address] 03/16/2024 12:20 PM EDT Office Visit Family Practice [facility] [address] [facility] [place] [address] Scott Weldon MD [address] [facility] [place] [address] Pending Results Name Type Priority Associated Diagnoses Date /Time CBC WITH WBC DIFFERENTIAL Lab STAT Cirrhosis of liver without ascites, unspecified hepatic cirrhosis type (HCC) Iron deficiency anemia, unspecified iron deficiency anemia type 08/27/2023 9:53 AM EDT FERRITIN Lab Routine Cirrhosis of liver without ascites, unspecified hepatic cirrhosis type (HCC) Iron deficiency anemia, unspecified iron deficiency anemia type 08/27/2023 9:53 AM EDT IRON SCREEN, INCLUDING TIBC Lab Routine Cirrhosis of liver without ascites, unspecified hepatic cirrhosis type (HCC) Iron deficiency anemia, unspecified iron deficiency anemia type 08/27/2023 9:53 AM EDT RENAL FUNCTION PANEL Lab Routine EVA (acute kidney injury) (HCC) 08/27/2023 9:53 AM EDT CBC Lab STAT Cirrhosis of liver without ascites, unspecified hepatic cirrhosis type (HCC) Iron deficiency anemia, unspecified iron deficiency anemia type 08/27/2023 9:53 AM EDT DIFFERENTIAL, AUTOMATED Lab STAT Cirrhosis of liver without ascites, unspecified hepatic cirrhosis type (HCC) Iron deficiency anemia, unspecified iron deficiency anemia type 08/27/2023 9:53 AM EDT Scheduled Procedures Name Priority Associated [...] this encounter Medical Devices Implanted Type Area Electrical Continuity Tester Device Identifier Shelf Expiration Date Model / Serial / Lot Neurostimul Intellis Adaptiv - [id number] - [id number] Implanted:Qty: 1 on 08/22/2022 by Rafia Small MD at OR [facility] N/A: Spine Lumbar [employer] 06/21/2023 [id number] / [id number] / Description:battery Medtronic Lead Kit 60 Cm Implanted:Qty: 1 on 08/22/2022 by Rafia Small MD at OR [facility] N/A: Spine Lumbar 02/01/2026 [id number] / / [id number] Medtronic Lead Kit 60cm Implanted:Qty: 1 on 08/22/2022 by Rafia Small MD at OR [facility] N/A: Spine Lumbar 03/21/2026 [id number] / / [id number] Envelope Tyrx Med Antibacteril - [id number] Implanted:Qty: 1 on 08/22/2022 by Rafia Small MD at OR [facility] N/A: Spine Lumbar [employer] 03/10/2023 [id number] / / [id number] documented as of this encounter Visit Diagnoses Diagnosis Cirrhosis of liver without ascites, unspecified hepatic cirrhosis type (HCC) Iron deficiency anemia, unspecified iron deficiency anemia type EVA (acute kidney injury) (HCC) Acute kidney failure, unspecified Colon cancer screening Special screening for malignant [...] the patient have Health Care Power of Delivery Director? No Code Status History Code Status Date Activated Date Inactivated Comments Full Code 01/21/2011 12:12 PM 01/22/2011 8:48 PM This order reflects the patients wishes and were consensually agreed upon. Question Answer Comments Discussion of Advance Directives occurred with: Patient Does the patient have a Living Will? No Does the patient have Health Care Power of Delivery Director? No Care Teams Seo Analyst Relationship Specialty Start Date End Date Scott Weldon MD [address] [place] [address] PCP - General Family Medicine 08/03/18 documented as of this encounter
--- OUTSIDE RECORDS SUMMARY | 2024-02-02 09:03 | External Medical Summary | Summary of Care ---
Author Name Unknown Organization [facility] Address [address] [place] [address] Phone [phone] Care Team Providers Care Air And Hydronic Balancing Technician Name Role Phone Scott Weldon MD Primary Care Provider + Reason for Visit * Reason Comments Dosage Adjustment In Person (Anticoag Cl inic) Diabetes Follow-Up Insulin Pump Encounter Details Date Type Department Care Team (Late st Contact Info) Description 09/02/2023 9:00 AM EDT Office Visit Pharmacy, [place] [address] [place] [address] [facility] [address] [place] [address] Type 2 diabetes mellitus with hemoglobin A1c goal of less than 8.0% ([facility])* Allergies Active Allergy Reactions Criticality Noted Date Comments Naproxen Sodium Bleeding High 11/29/2013 Pollen 12/03/2022 Seasonal Food (See Comments) Anaphylaxis High 04/20/2019 Hot peppers (oils) Kiwi Extract Anaphylaxis High 04/20/2019 documented as of this encounter (statuses as of 09/02/2023) Medications Medication Sig Dispensed Refills Start Date End Date Status ONETOUCH ULTRASOFT LANCETS MISCIndications:DM type 2, not at goal ([facility]) check FS 6 times daily [...] Strip 5 7 Active Insulin Infusion Pump (MINIMBlue Pillar 630G INSULIN PUMP) KITIndications:Type 2 diabetes mellitus [...] overdose. Seek immediate medical attention. [email or web address]?v=[email or web address] 1 Each 3 3 Active Atenolol 100 [...] the morning. 30 Tablet 0 4 Active Insulin Syringe-Needle U-100 (BD INSULIN [...] 8 09/02/19 24 Discontinu ed(End of Procedure) documented as [...] Overview: Per Obesity Taxonomy Coronary atherosclerosis of [place] coronary artery 09/15/2008 10/03/2008 Malaise and fatigue [...] mRNA, LNP-s, No Pre serve, 2-Dose Series (Kobojo) 11/08/2020,10/11/2020 HEP A - Hepatitis A (Adult > 18 yrs) 04/11/2011, 09/20/2010 Hepatitis B, 20+ yrs 07/05/2015 Pneumococcal Conjugate Vacci ne, 20-valent ([id number]) 03/13/2023 Pneumococcal Polysaccharide PPV23 (Pneumovax) 02/19/2018,03/09/2007 Seasonal [...] encounter Progress Notes * Danielle Anderson, [facility] - 09/02/2023 8:59 AM EDT Images from the original note [...] mg once weekly eGFR 65 mL/min 12/03/22 TwelveG - MaistorPlus ([id number]) Infusion Set: Quick Set Insulin: Novolin R [...] % 5.8* 5.7* 8.6* Recent Labs Units 08/27/23 0953 08/20/23 1127 07/23/23 1200 ESTIMATED GLOMERULAR FILTRATION RATE - [facility] mL/min 45* 43* 52* CREATININE - [facility] mg/dL 1.4* 1.5* 1.3* HYPERTENSION: Patient on ACEi/ARB: yes BP Readings from Last 3 Encounters: 08/20/23 98/60 08/19/23 114/79 03/13/23 124/72 Blood pressure at goal: yes HYPERLIPIDEMIA: Patient is taking moderate or high intensity statin: yes HEALTH MAINTENANCE REVIEW: Health Maintenance Due Topic Date Due Cervical Cancer Screening 04/12/2018 Mammogram 05/07/2019 COLONOSCOPY-EVERY 5 YRS AGES 18-100 06/27/2020 Diabetic Eye Exam 01/16/2023 COVID-19 Vaccine () 02/06/2023 B-12 06/11/2023 Zoster Vaccines (2 of 2) 06/14/2023 ASSESSMENT & PLAN: ICD-10-CM 1. Type 2 diabetes mellitus with hemoglobin A1c goal of less than 8.0% ([facility]) E11.9 Considerations: - activity limited by chronic low back pain - obtaining ozempic and novolin R via PAP - prefers to use local pharmacy instead of [facility] Glycemic control is unstable and not at goal Patient agreeable to adjust medications as noted below. Basal settings decreased as glucose is falling overnight and between meals. ICR/fixed dose and ISF continued- patient hardly using this function of the pump. Educated patient on Jardiance. Instructed patient to start it in 2 weeks. Patient to monitor for signs of low blood pressure such as dizziness and lightheadedness. Instructed patient to monitor for signs of yeast and urinary tract infections. Patient was instructed to stay hydrated while taking this medication. Reviewed cardiovascular and renal benefits with patient. Patient's BP trends low- may need to decrease doses of BP meds (losartan, atenolol, spironolactone,furosemide) in future Patient to SMBG at least 4 times daily, before each meal and at bedtime. Patient aware to contact clinic if any hypoglycemia before next visit. Reviewed rule of 15s. Reviewed appropriate management of hyperglycemia as noted in pump start documentation. MEDICATION CHANGES: yes, see below; preferred pharmacy: [facility] Diabetic Medications: Metformin 1000mg twice a day Ozempic 2 mg once weekly Start Jardiance 10 mg once daily eGFR 65 mL/min 12/03/22 Medtronic [email or web address] - MaistorPlus ([id number]) Infusion Set: Quick Set Insulin: Novolin R [...] HEALTH MAINTENANCE INTERVENTIONS: Labs: Ordered & Scheduled: BMP/CMP and Vitamin B12 Immunizations: Up to Date Foot Exam: Up to Date Eye Exam: due, but pt has retinopathy so unable to use camera in clinic Annual Wellness Visit: Up to Date FOLLOW UP: Return to clinic in 4 weeks 09/30/2023 Danielle Anderson [facility] Clinical Pharmacist - Food Technologist Medication Therapy Management Clinic 09/02/2023, 8:59 AM documented in this encounter Plan of Treatment Upcoming Encounters Date Type Department Care Team (Latest Contact Info) Description 09/02/2023 2:00 PM EDT Imaging Radiology [facility] 1st [facility] [address] [place] [address] 09/08/2023 2:40 PM EDT Office Visit Family Practice [facility] [address] [place] [address] Jadiel Epstein CRNP [address] [place] [address] 09/16/2023 1:20 PM EDT Office Visit Neurology [facility] [address] [facility] [place] [address] Yesenia Wayne PA-C [address] [facility] [place] [address] 09/23/2023 2:00 PM EDT Immunization/Injecti on Hematology/Oncolog y Treatment, [place] [address] [place] [phone] Nurse, Med [address] [facility] [place] [address] 09/30/2023 9:00 AM EDT Office [facility] Pharmacy, [place] [address] [facility] [address] [facility] [address] [facility] [address] 10/05/2023 8:00 AM EDT Hospital Encounter [facility]O [facility], Endoscopy Room [facility] [address] [place] [phone] Pruett, Marten B, DO [address] [place] [address] 10/05/2023 8:00 AM EDT - 10/05/2023 9:00 AM EDT Surgery ENDO [facility], Endoscopy Room [facility] [address] [place], [place] [phone] Aj Pruett, DO [address] [place] [address] COLONOSCOPY FLEXIBLE PROXIMAL DIAGNOSTIC 10/05/2023 12:00 PM EDT Telemedicine Psychiatry, [facility] [address] [facility] [place] [address] Rj Mai MD [address] [place] [address] 11/05/2023 1:00 PM EDT Telemedicine Pharmacy, [facility] [place] [address] [facility] [address] [place] [address] 02/09/2024 8:00 AM EDT Telemedicine Gastroenterology, [address] [address] Charlee Fields MD [address] [place] [address] 02/24/2024 2:15 PM EDT Office Visit Hematology/Oncolog y [facility] [address] [facility] [place] [phone] Sunil Bourgeois MD [address] [facility] [place] [address] 03/16/2024 12:20 PM EDT Office Visit Family Practice [facility] [address] [place] [address] Scott Weldon MD [address] [place] [address] Scheduled Orders Name Type Priority Associated Diagnoses Orde r Schedule VITAMIN B12 Lab Routine Type 2 diabetes mellitus with hemoglobin A1c goal of less than 8.0% (HCC) Expected: 09/30/2023 (Approximate), Expires: 09/01/2024 BASIC METABOLIC PANEL Lab Routine Type 2 diabetes mellitus with hemoglobin A1c goal of less than 8.0% (HCC) Expected: 09/30/2023 (Approximate), Expires: 09/01/2024 Scheduled Procedures Name Priority Associated Diagnoses Date/Ti [...] this encounter Medical Devices Implanted Type Area Scow Derrick Operator Device Identifier Shelf Expiration Date Model / Serial / Lot Neurostimul Intellis Adaptiv - [id number] - [id number] Implanted:Qty: 1 on 08/22/2022 by Rafia Small MD at OR [facility] N/A: Spine Lumbar [employer] 06/21/2023 [id number] / [id number] / Description:battery Medtronic Lead Kit 60 Cm Implanted:Qty: 1 on 08/22/2022 by Rafia Small MD [facility] N/A: Spine Lumbar 02/01/2026 [id number] / / [id number] Medtronic Lead Kit 60cm Implanted:Qty: 1 on 08/22/2022 by Rafia Small MD at OR [facility] N/A: Spine Lumbar 03/21/2026 [id number] / / [id number] Envelope Tyrx Med Antibacteril - [id number] Implanted:Qty: 1 on 08/22/2022 by Rafia Small MD at [facility] N/A: Spine Lumbar [employer] 03/10/2023 [id number] / / [id number] documented as of this encounter Visit Diagnoses [...] the patient have Health Care Power of Machine I Coremaker? No Code Status History Code Status Date Activated Date Inactivated Comments Full Code 01/21/2011 12:12 PM 01/22/2011 8:48 PM This order reflects the patients wishes and were consensually agreed upon. Question Answer Comments Discussion of Advance Directives occurred with: Patient Does the patient have a Living Will? No Does the patient have Health Care Power of Machine I Coremaker? No Care Teams Air And Hydronic Balancing Technician Relationship Specialty Start Date End Date Scott Weldon MD [address] [place] [address] PCP - General Family Medicine 08/03/18 documented as of this encounter
--- OUTSIDE RECORDS SUMMARY | 2024-02-02 09:04 | External Medical Summary | Summary of Care ---
Author Name Unknown Organization [facility] Address [address] [place] [address] Phone [phone] Care Team Providers Care Distribution Technician Name Role Phone Scott Weldon MD Primary Care Provider + Reason for Visit * Reason Onset Date Comments Outpatient Testing 08/12/2023 Encounter Details Date Type Department Care Team (Late st Contact Info) Description 08/12/2023 Telephone Gastroenterology, [address] [phone] Kayla Bennett PA-C [facility] [place] [address] Outpatient Testing Allergies Active Allergy [...] suspected opioid overdose. Seek immediate medical attention. [email or web address]?[email or web address] 1 Each 3 3 Active Omeprazole 20 [...] than 8.0% ([facility]),DM type 2, not at goal ([facility] [...] ions:DM type 2, not at goal ([facility]) TAKE 1 TABLET BY MOUTH 2 TIMES [...] Overview: Per Obesity Taxonomy Coronary atherosclerosis of [place] coronary artery 09/15/2008 10/03/2008 Malaise and fatigue [...] mRNA, LNP-s, No Pre serve, 2-Dose Series (KODA) 11/08/2020,10/11/2020 HEP A - Hepatitis A (Adult > 18 yrs) 04/11/2011, 09/20/2010 Hepatitis B, 20+ yrs 07/05/2015 Pneumococcal Conjugate Vacci ne, 20-valent (Bbbqirl74) 03/13/2023 Pneumococcal Polysaccharide PPV23 (Pneumovax) 02/19/2018,03/09/2007 Seasonal [...] AM with . Instructions were sent to [facility] and will be mailed. * Telephone Encounter - Kayla Bennett PA-C - 08/12/2023 2:57 PM EST Pt admitted to [facility] for hematemesis/BRBPR. Please schedule OP EGD/colonoscopy in approx 6-8 weeks - Please arrange OP hepatology follow-up for her liver disease - pt normally sees Dr. Fields in [place] and is over due to see him. Thanks, Kayla Bennett PA-C 08/12/2023 Department of Gastroenterology documented in this encounter Plan of Treatment Upcoming Encounters Date Type Department Care Team (Latest Contact Info) Description 08/25/2023 9:30 AM EDT Telemedicine Psychiatry, [facility] [address] [facility] [place] [address] Rj Mai MD [address] [place] [address] 08/31/2023 11:40 AM EDT Laboratory Laboratory, [place] [address] [place] [phone] [facility] [address] [place] [address] 08/31/2023 6:10 PM EDT Pharmacy Pharmacy, [place] [address] [place] [address] [facility] [address] [place] [address] 09/02/2023 2:00 PM EDT Imaging Radiology [facility] 1st [facility] [place] [address] [facility] [place] [address] 09/16/2023 1:20 PM EDT Office Visit Neurology [facility] [place] [address] [facility] [place] [address] Yesenia Wayne PA-C [address] [facility] [place] [address] 09/23/2023 2:00 PM EDT Immunization/Injecti on Hematology/Oncolog y Treatment, [place] [address] [facility] [place] [phone] Nurse, Med 4 [address] [facility] [place] [address] 10/05/2023 8:00 AM EDT Hospital Encounter ENDO [facility], Endoscopy Room [facility] [address] [place], [place] [phone] Aj Pruett, DO [address] [place] [address] 10/05/2023 8:00 AM EDT - 10/05/2023 9:00 AM EDT Surgery ENDO [facility], Endoscopy Room [facility] [address] [place] [phone] Aj Pruett, DO [address] [place] [address] COLONOSCOPY FLEXIBLE PROXIMAL DIAGNOSTIC 11/05/2023 1:00 PM EDT Telemedicine Pharmacy, [facility] [address] [place] [address] [facility] [address] [place] [address] 02/24/2024 2:15 PM EDT Office Visit Hematology/Oncolog y [facility] [place] [address] [facility] [place] [phone] Sunil Bourgeois MD [address] [facility] [place] [address] 03/16/2024 12:20 PM EDT Office Visit Family Practice [facility] [address] [place] [address] Scott Weldon MD [address] [place] [address] Scheduled Orders Name Type Priority Associated Diagnoses [...] this encounter Medical Devices Implanted Type Area Spine Supervisor Device Identifier Shelf Expiration Date Model / Serial / Lot Neurostimul Intellis Adaptiv - [id number] - [id number] Implanted:Qty: 1 on 08/22/2022 by Rafia Small MD at OR [facility] N/A: Spine Lumbar [employer] 06/21/2023 [id number] / [id number] / Description:battery Medtronic Lead Kit 60 Cm Implanted:Qty: 1 on 08/22/2022 by Rafia Small MD at OR [facility] N/A: Spine Lumbar 02/01/2026 [id number] / / [id number] Medtronic Lead Kit 60cm Implanted:Qty: 1 on 08/22/2022 by Rafia Small MD at OR [facility] N/A: Spine Lumbar 03/21/2026 [id number] / / [id number] Envelope Tyrx Med Antibacteril - [id number] Implanted:Qty: 1 on 08/22/2022 by Rafia Small MD at OR [facility] N/A: Spine Lumbar [employer] 03/10/2023 [id number] / / [id number] documented as of this encounter Visit Diagnoses [...] the patient have Health Care Power of Hand Shoe Cutter? No Code Status History Code Status Date Activated Date Inactivated Comments Full Code 01/21/2011 12:12 PM 01/22/2011 8:48 PM This order reflects the patients wishes and were consensually agreed upon. Question Answer Comments Discussion of Advance Directives occurred with: Patient Does the patient have a Living Will? No Does the patient have Health Care Power of Hand Shoe Cutter? No Care Teams Distribution Technician Relationship Specialty Start Date End Date Scott Weldon MD [address] [facility] [place] [address] PCP - General Family Medicine 08/03/18 documented as of this encounter
--- OUTSIDE RECORDS SUMMARY | 2024-02-02 09:04 | External Medical Summary | Summary of Care ---
Author Name Unknown Organization [facility] Address [address] [facility] WERNERSELECT [facility] [address] Phone [phone] Care Team Providers Care Editor Name Role Phone Scott Weldon MD Primary Care Provider + Reason for Referral * Evaluate & Treat - Unlimited Visits (Within 10 days (routine)) - Authorized Specialty Diagnoses / Procedures Referred By Dory payan Referred To Contact Gastroenterology Diagnoses Cirrhosis of liver with ascites, unspecified hepatic cirrhosis type (HCC) Thrombocytopenia (HCC) EVA (acute kidney injury) (HCC) Colitis Hematemesis, unspecified whether nausea present Hematochezia Vera Rojo DO [address] [place] [address] Referral ID Status Reason Start Date Expiration Date Visits Requested Visits Authorized [id number] Authorized Specialty Services Required 08/20/2023 999 999 Question Answer For what condition is the patient being referred? Other Referral Priority Within 10 days (routine) Where should this appointment be scheduled? Noemi Comments overdue Reason for Visit * Reason Onset Date Comments Hospital Follow-Up Pt here for h ospital f/u apt, was seen for GI bleed, and other GI issues. Hospital Follow-Up 08/20/2023 Encounter Details Date Type Department Care Team (Latest Contact Info) Description 08/20/2023 11:20 AM EDT Office Visit [facility] [address] [place] [address] Vera Rojo DO [address] [place] [address] Hospital discharge follow-up*; Cirrhosis of liver with ascites, unspecified hepatic cirrhosis type (HCC); Thrombocytopenia (HCC); Esophageal varices without bleeding, unspecified esophageal varices type (HCC); EVA (acute kidney injury) (HCC); Colitis; Hematemesis, unspecified whether nausea present; Hematochezia; Hemiplegia and 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 (HCC); Portal hypertension (HCC); Major depressive disorder, recurrent episode, moderate (HCC); Morbid obesity, BMI not known (HCC); Type II diabetes mellitus with neurological manifestations (HCC); MICHELLE (generalized anxiety disorder); HTN, goal below 130/80; Hyperlipidemia, unspecified hyperlipidemia type Allergies Active Allergy Reactions Criticality Noted Date Comments Naproxen Sodium Bleeding High 11/29/2013 Pollen 12/03/2022 Seasonal Food (See Comments) Anaphylaxis High 04/20/2019 Hot peppers (oils) Kiwi Extract Anaphylaxis High 04/20/2019 documented as of this encounter (statuses as of 08/20/2023) Medications Medication Sig Dispensed Refills Start Date End Date Status ONETOUCH ULTRASOFT LANCETS MISCIndications:DM type 2, not at goal ([facility]) check FS 6 times daily 4 Box [...] a week. 4 Patch 0 4 Active Escitalopram Oxalate 20 MG Oral Tablet (Lexapro) Take 1 Tablet by mouth in the morning. 90 Tablet 0 4 Active hydrOXYzine HCl 25 [...] by mouth in the morning. 0 Active documented as of this encounter (statuses as of 08/20/2023) Active Problems Problem Noted Date Diagnosed Date [...] as of this encounter (statuses as of 08/20/2023) Resolved Problems Problem Noted Date Diagnosed Date [...] as of this encounter (statuses as of 08/20/2023) Immunizations Name Administration Dates Next Due COVID-19 mRNA, LNP-s, No Pre serve, 2-Dose Series (Pfizer) 11/08/2020,10/11/2020 HEP A - Hepatitis A (Adult > 18 yrs) 04/11/2011, 09/20/2010 Hepatitis B, 20+ yrs 07/05/2015 Pneumococcal Conjugate Vacci ne, 20-valent ([id number]) 03/13/2023 Pneumococcal Polysaccharide PPV23 (Pneumovax) 02/19/2018,03/09/2007 Seasonal [...] Sign Reading Time Taken Comments Blood Pressure 98/60 08/20/2023 10:48 AM EDT Pulse 73 08/20/2023 10:48 AM EDT Temperature 36.3 C (97.3 F) 08/20/2023 10:48 AM E DT Respiratory Rate 16 08/20/2023 10:48 AM EDT Oxygen Saturation - - Inhaled Oxygen Concentration - - Weight 104.3 kg (230 lb) 08/20/2023 10:48 AM EDT Height 166.4 cm (5' 5.51") 08/20/2023 10:48 AM E DT Body Mass Index 37.68 08/20/2023 10:48 AM [...] as of this encounter Progress Notes * Vera Rojo, - 08/20/2023 10:56 AM EDT Subjective: Carmen Tyson is a 53 year old female. Chief Complaint Patient presents with Hospital Follow-Up Pt here for hospital f/u apt, was seen for GI bleed, and other GI issues. Hospital Follow-Up There are no exam notes on file for this visit. HPI: This is a 53 year old female with PMHx as below presents with hospital follow up Admitted to [facility] [place] on 08/10 for hematochezia/hemetemesis Discharged to home 08/17 Needs: repeat renal labs Dx: colitis, eva. 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 with insulin pump- MTM following HTN - on meds DL - statin, hx of stroke [facility] - has appt next month Still not eating and drinking - advised on small sips - g2 gatorade, chicken broth, brat diet, zofran prn Dizzy Weakness Rash on buttocks - advised on barrier creams -- Health Maintenance Due Topic Date Due Cervical Cancer Screening 04/12/2018 Mammogram 05/07/2019 COLONOSCOPY-EVERY 5 YRS AGES 18-100 06/27/2020 Diabetic Eye Exam 01/16/2023 COVID-19 Vaccine (2022- season) 2023 B-12 06/11/2023 Zoster Vaccines (2 of 2) 06/14/2023 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 Seek immediate medical attention. [email or web address] 1 Each 3 Atenolol 100 MG Oral [...] 1 Tablet by mouth in the morning. Omeprazole 20 MG Oral Capsule Delayed Release (PriLOSEC) TAKE 1 CAPSULE BY MOUTH TWICE A DAY (Patient not taking: Reported on 08/20/2023) 180 Capsule 1 Zoster Vac Recomb Adjuvanted 50 MCG/0.5ML Intramuscular Suspension Reconstituted (Shingrix) Inject 0.5 mL into a large muscle now and repeat dose in 60 to 180 days 1 Each 1 No current facility-administered medications for this [...] DIAGNOSTIC performed by Aj Pruett [facility] EGD, FLEXIBLE, DIAGNOSTIC 01/22/2011 UPPER GI ENDOSCOPY DIAGNOSTIC performed by STACEY BENNETT at ENDOSCOPY [facility] EGD, FLEXIBLE, DIAGNOSTIC 01/19/2014 portal hypertensive gastropathy, benign gastric polyp, repeat 2 yrs/done @ [facility] [place] EGD, FLEXIBLE, DIAGNOSTIC 02/08/2016 normal bx, portal hypertensive gastropathy, repeat 1.5 yrs/[facility] [place] EGD, FLEXIBLE, DIAGNOSTIC 08/25/2017 retained food, repeat 1 yr/ESOPHAGOGASTRODUODENOSCOPY (EGD), FLEXIBLE, TRANSORAL, DIAGNOSTIC performed by Aj Pruett DO at ENDOSCOPY [facility] EGD, FLEXIBLE, DIAGNOSTIC 12/15/2018 esophageal varices, gastritis, gastric polyp, repeat 1 yr/ESOPHAGOGASTRODUODENOSCOPY (EGD), FLEXIBLE, TRANSORAL, DIAGNOSTIC performed by Aj Pruett DO at ENDOSCOPY [facility] EGD, FLEXIBLE, DIAGNOSTIC 01/31/2020 fundic polyps, eso varices, portal hypertensive gastropathy, repeat 1 yr / ESOPHAGOGASTRODUODENOSCOPY (EGD), FLEXIBLE, TRANSORAL, DIAGNOSTIC performed by Aj Pruett DO at ENDOSCOPY [facility] EGD, FLEXIBLE, DIAGNOSTIC 10/09/2022 grade I esophageal varices/portal hypertension gastropathy/medium amount of food in stomach/ESOPHAGOGASTRODUODENOSCOPY (EGD), FLEXIBLE, TRANSORAL, DIAGNOSTIC performed by Aj Pruett DO at ENDOSCOPY [facility] EGD, FLEXIBLE, W/BIOPSY 07/27/2012 small fundic stomach polyp/inflammation r/t reflux-repeat EGD in 1 yr EGD, W/ENDOSCOPIC US 01/22/2011 UPPER GI ENDOSCOPY ENDOSCOPIC ULTRASOUND performed by STACEY BENNETT at [facility]OSCOPY [facility] EVAL NEUROSTIM PULSE GEN, W/ REPROGRAM N/A 06/27/2022 NEUROSTIMULATOR PULSE GENERATOR/ TRANSMITTER, WITH INTRAOPERATIVE OR SUBSEQUENT PROGRAMMING performed by Rafia Small MD at OR [facility] EVAL NEUROSTIM PULSE GEN, W/ REPROGRAM N/A 08/22/2022 NEUROSTIMULATOR PULSE GENERATOR/ TRANSMITTER, WITH INTRAOPERATIVE OR SUBSEQUENT PROGRAMMING performed by Rafia Small MD at OR [facility] HYSTEROSCOPY,DIAGNOSTIC 07/16/2006 NovaSure endomentrial ablation IMPLANT EPIDURAL NEUROELECTRODES N/A 06/27/2022 PERCUTANEOUS IMPLANTATION NEUROSTIMULATOR EPIDURAL performed by Rafia Small MD at OR [facility] IMPLANT EPIDURAL NEUROELECTRODES N/A 08/22/2022 PERCUTANEOUS IMPLANTATION NEUROSTIMULATOR EPIDURAL performed by Rafia Small MD at OR [facility] IMPLANT SPINAL NEURORECEIVER N/A 08/22/2022 INSERTION OR REPLACEMENT SPINAL NEUROSTIMULATOR GENERATOR performed by Rafia Small MD [facility] INJECT DX/THER SUBSTANCE INTERLAMINAR LUMBAR/SACRAL W IMAGE GUIDE 04/13/2017 INJECTION SPINE LUMBAR OR SACRAL performed by Rene Kate DO at OR [facility] INJECT DX/THER SUBSTANCE INTERLAMINAR LUMBAR/SACRAL W IMAGE GUIDE 12/10/2017 INJECTION SPINE LUMBAR OR SACRAL performed by Rene Kate DO at OR [facility] INSER TUNN ACC DEV;5 YRS/OLDER 03/24/2013 03/24/2013 at [facility], Placement of A-Port central venous access catheter with port Dr. Renate MCGOWAN CT GUIDED NEEDLE BIOPSY 07/11/2010 CT GUIDED NEEDLE ASPIRATION BIOPSY performed by JAMILA SAWANT at RADIOLOGY [facility] LIGATE/CUT OVIDUCT(S) 07/1995 Review of patient's allergies [...] Brother No Past Hx Sister 15yo Family Status Relation Status Mo Fa at age 58 Kidney failure, dm, HEART Son Alive Bro Alive Bro Alive Sis Alive Son Alive MGMA (Not Specified) PGMA (Not Specified) Bro (Not Specified) Bro (Not Specified) Bro (Not Specified) Sis (Not Specified) Social History Socioeconomic History Marital status: Spouse name: Scot Number of children: 2 Years of education: Not on file Highest education level: Not on file Occupational History Occupation: unemployed 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 Wt Readings from Last 3 Encounters: 08/20/23 104.3 kg (230 lb) 03/13/24 103.2 kg (227 lb 8 oz) 03/13/23 107.2 kg (236 lb 7 oz) Results for orders placed or performed in visit on 07/23/23 FERRITIN Result Value Ref Range Ferritin 215 (H) 13 - 150 ng/mL IRON SCREEN, INCLUDING TIBC Result Value Ref Range Iron 53 33 - 151 ug/dL Iron Binding Capacity 289 250 - 425 ug/dL Transferrin Saturation Percent 18 15 - 55 % HEMOGLOBIN A1C Result Value Ref Range Hemoglobin A1C 5.8 (H) 4.0 - 5.6 % Estimated Average Glucose 120 <126 mg/dL BASIC METABOLIC PANEL Result Value Ref Range BUN 14 6 - 20 mg/dL Creatinine 1.3 (H) 0.5 - 1.0 mg/dL Estimated Glomerular Filtration Rate 52 (L) >=60 mL/min Sodium 141 135 - 146 mmol/L Potassium 4.4 3.5 - 5.1 mmol/L Chloride 101 98 - 107 mmol/L CO2 27 22 - 32 mmol/L Anion Gap 13 7 - 15 mmol/L Glucose 77 70 - 120 mg/dL Calcium 9.0 8.4 - 10.2 mg/dL LIPID PANEL WITH DIRECT LDL IF TG IS HIGH Result Value Ref Range Triglycerides 103 <=174 mg/dL Cholesterol 121 <200 mg/dL HDL Cholesterol 46 (L) >49 mg/dL Non-HDL Cholesterol 75 <=159 mg/dL LDL Cholesterol 54 <=129 mg/dL CBC Result Value Ref Range WBC 7.54 4.00 - 10.80 K/uL RBC 4.57 3.85 - 5.15 M/uL HGB 13.2 12.0 - 15.3 g/dL HCT 40.7 36.0 - 45.2 % MCV 89.1 81.5 - 97.5 fL MCH 28.9 27.0 - 34.0 pg MCHC 32.4 32.0 - 36.0 g/dL RDW 13.2 11.5 - 15.5 % PLT 112 (L) 140 - 400 K/uL MPV 10.8 6.6 - 11.1 fL nRBCs 0 <=0 /100 WBCs DIFFERENTIAL, AUTOMATED Result Value Ref Range WBC 7.54 4.00 - 10.80 K/uL Neutrophils % 70.0 40.0 - 75.0 % Lymphocytes % 18.2 18.0 - 42.0 % Monocytes % 7.6 1.0 - 11.0 % Eosinophils % 2.8 0.0 - 6.0 % Basophils % 0.9 0.0 - 2.0 % Immature Granulocytes % 0.5 0.0 - 2.0 % Absolute Neutrophils 5.28 1.80 - 7.70 K/uL Absolute Lymphocytes 1.37 1.00 - 4.80 K/ul Absolute Monocytes 0.57 0.00 - 1.10 K/uL Absolute Eosinophils 0.21 0.00 - 0.70 K/uL Absolute Basophils 0.07 0.00 - 0.20 K/uL Absolute Immature Granulocytes 0.04 0.00 - 0.20 K/uL ALBUMIN / CREATININE RATIO, URINE Result Value Ref Range Albumin, Random Urine <1.20 mg/dL Creatinine, Random Urine 58 mg/dL Albumin / Creatinine Ratio, Urine <21 <30 mg/g Creat *Note: Due to a large number of results and/or encounters for the requested time period, some results have not been displayed. A complete set of results can be found in Results Review. OBJECTIVE: Physical Exam: BP 98/60 | Pulse 73 | Temp 36.3 C (97.3 F) (Tympanic) | Resp 16 | Ht 1.664 m (5' 5.51") | Wt 104.3 kg (230 lb) | BMI 37.68 kg/m | BSA 2.2 m General: alert, healthy, and no distress Heart: regular rate & rhythm, no murmur, and no gallops Lungs: lungs clear to auscultation Abdomen: abdomen soft, non-tender, normal bowel sounds, and no masses or organomegaly Extremities: no joint deformities, effusion, or inflammation, no edema Hospital discharge follow-up (Primary) - DISCH MED RECON CUR MED LIS Cirrhosis of liver with ascites, unspecified hepatic cirrhosis type (HCC) - CBC WITH WBC DIFFERENTIAL; Future; Expected date: 08/20/2023 - COMPREHENSIVE METABOLIC PANEL; Future; Expected date: 08/20/2023 - HEPATOLOGY REFERRAL OP Thrombocytopenia (HCC) - CBC WITH WBC DIFFERENTIAL; Future; Expected date: 08/20/2023 - COMPREHENSIVE METABOLIC PANEL; Future; Expected date: 08/20/2023 - HEPATOLOGY REFERRAL OP Esophageal varices without bleeding, unspecified esophageal varices type (HCC) EVA (acute kidney injury) (HCC) - CBC WITH WBC DIFFERENTIAL; Future; Expected date: 08/20/2023 - COMPREHENSIVE METABOLIC PANEL; Future; Expected date: 08/20/2023 - HEPATOLOGY REFERRAL OP Colitis - CBC WITH WBC DIFFERENTIAL; Future; Expected date: 08/20/2023 - COMPREHENSIVE METABOLIC PANEL; Future; Expected date: 08/20/2023 - HEPATOLOGY REFERRAL OP Hematemesis, unspecified whether nausea present - CBC WITH WBC DIFFERENTIAL; Future; Expected date: 08/20/2023 - COMPREHENSIVE METABOLIC PANEL; Future; Expected date: 08/20/2023 - HEPATOLOGY REFERRAL OP Hematochezia - CBC WITH WBC DIFFERENTIAL; Future; Expected date: 08/20/2023 - COMPREHENSIVE METABOLIC PANEL; Future; Expected date: 08/20/2023 - HEPATOLOGY REFERRAL OP Hemiplegia and 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 (HCC) Portal hypertension (HCC) Major depressive disorder, recurrent episode, moderate (HCC) Morbid obesity, BMI not known (HCC) Type II diabetes mellitus with neurological manifestations (HCC) MICHELLE (generalized anxiety disorder) HTN, goal below 130/80 Hyperlipidemia, unspecified hyperlipidemia type Follow-up: Return if symptoms worsen or fail to improve. | Check-out note: Was supposed to have 6 mo follow up in September 2023 with PCP for routine care - please schedule Overdue to see hepatology was due 05/2023 Vera Rojo DO documented in this encounter Plan of Treatment Upcoming Encounters Date Type Department Care Team (Latest Contact Info) Description 08/20/2023 12:00 PM EDT Laboratory Laboratory, [facility] [place] [address] [phone] Gabriela [facility] [address] [address] [employer] Other*[id number]; Cirrhosis of liver with ascites, unspecified hepatic cirrhosis type (HCC); Thrombocytopenia (HCC); EVA (acute kidney injury) (HCC); Colitis; Hematemesis, unspecified whether nausea present; Hematochezia 08/25/2023 9:30 AM EDT Telemedicine [address]ry, [address] [address] Rj Mai MD [address] [place] [address] 08/31/2023 11:40 AM EDT Laboratory Laboratory, [place] [address] [place] [phone] [place], Laboratory [address] [place] [facility] [place] [address] 08/31/2023 6:10 PM EDT Pharmacy Pharmacy, [place] [address] [place] [address] [place] [address] [place] [address] 09/02/2023 2:00 PM EDT Imaging Radiology [facility] [address] [facility] [address] [place] [address] 09/16/2023 1:20 PM EDT Office Visit Neurology [facility] [address] [place] [address] Yesenia Wayne PA-C [address] [facility] [place] [address] 09/23/2023 2:00 PM EDT Immunization/Injecti on Hematology/Oncolog y Treatment, [place] [address] [place] [phone] Nurse, Med [address] [place] [address] 11/05/2023 1:00 PM EDT Telemedicine Pharm[facility], [facility] [address] [facility] [address] [place] [address] 12/03/2023 9:30 AM EDT Procedure Only Endoscopy, [facility] [address] [place] [address] Aj Pruett DO [address] [place] [address] 02/24/2024 2:15 PM EDT Office Visit Hematology/Oncolog y [facility] [address] [place] [phone] Sunil Bourgeois MD [address] [place], [place] [address] 03/16/2024 12:20 PM EDT Office Visit [facility] [address] [place] [address] Scott Weldon MD [address] [facility] [place] [address] Pending Results Name Type Priority Associated Diagnoses Date /Time CBC WITH WBC DIFFERENTIAL Lab Routine Cirrhosis of liver with ascites, unspecified hepatic cirrhosis type (HCC) Thrombocytopenia (HCC) EVA (acute kidney injury) (HCC) Colitis Hematemesis, unspecified whether nausea present Hematochezia 08/20/2023 11:27 AM EDT COMPREHENSIVE METABOLIC PANEL Lab Routine Cirrhosis of liver with ascites, unspecified hepatic cirrhosis type (HCC) Thrombocytopenia (HCC) EVA (acute kidney injury) (HCC) Colitis Hematemesis, unspecified whether nausea present Hematochezia 08/20/2023 11:27 AM EDT Scheduled Orders Name Type Priority Associated Diagnoses Orde r Schedule CBC WITH WBC DIFFERENTIAL Lab Routine Cirrhosis of liver with ascites, unspecified hepatic cirrhosis type (HCC) Thrombocytopenia (HCC) EVA (acute kidney injury) (HCC) Colitis Hematemesis, unspecified whether nausea present Hematochezia Expected: 08/20/2023 (Approximate), Expires: 08/19/2024 COMPREHENSIVE METABOLIC PANEL Lab Routine Cirrhosis of liver with ascites, unspecified hepatic cirrhosis type (HCC) Thrombocytopenia (HCC) EVA (acute kidney injury) (HCC) Colitis Hematemesis, unspecified whether nausea present Hematochezia Expected: 08/20/2023 (Approximate), Expires: 08/19/2024 Scheduled Referrals Name Type Priority Associated Diagnoses Orde r Schedule HEPATOLOGY REFERRAL OP Referral Within 10 days (routine) Cirrhosis of liver with ascites, unspecified hepatic cirrhosis type (HCC) Thrombocytopenia (HCC) EVA (acute kidney injury) (HCC) Colitis Hematemesis, unspecified whether nausea present Hematochezia Ordered: 08/20/2023 Health Maintenance Due Date Last Done Comments HPV/Co-Test 2002 Cervical Cancer Screening 04/12/2018 Pap Smear 04/12/2018 04/12/2015, 10/2014, 09/28/2008, Additional history exists Mammogram 05/07/2019 05/07/2018, 01/21/2016 COLONOSCOPY-EVERY 5 YRS AGES 18-100 06/27/2020 06/27/2015, 06/27/2015, 06/06/2010, Additional history exists Diabetic Eye Exam 01/16/2023 01/16/2022, , 12/14/2019, Additional history exists COVID-19 Vaccine (3 - 2022-24 season) 2023 11/08/2020, 10/11/2020 B-12 06/11/2023 06/11/2022, [...] this encounter Medical Devices Implanted Type Area Refrigeration Supervisor Device Identifier Shelf Expiration Date Model / Serial / Lot Neurostimul Intellis [employer] - [id number] - [id number] Implanted:Qty: 1 on 08/22/2022 by Rafia Small MD at OR [facility] N/A: Spine Lumbar [employer] 06/21/2023 [id number] / [id number] / Description:battery Medtronic Lead Kit 60 Cm Implanted:Qty: 1 on 08/22/2022 by Rafia Small MD at OR [facility] N/A: Spine Lumbar 02/01/2026 [id number] / / [id number] Medtronic Lead Kit 60cm Implanted:Qty: 1 on 08/22/2022 by Rafia Small MD at OR [facility] N/A: Spine Lumbar 03/21/2026 [id number] / / [id number] Envelope [employer]x Med Antibacteril - [id number] Implanted:Qty: 1 on 08/22/2022 by Rafia Small MD at OR [facility] N/A: Spine Lumbar [employer] 03/10/2023 [id number] / / [id number] documented as of this encounter Visit Diagnoses Diagnosis Hospital discharge follow-up- Primary Other follow-up examination Cirrhosis of liver with ascites, unspecified hepatic cirrhosis type (HCC) Thrombocytopenia (HCC) Thrombocytopenia, unspecified Esophageal varices without bleeding, unspecified esophageal varices type (HCC) EVA (acute kidney injury) (HCC) Acute kidney failure, unspecified Colitis Other and unspecified noninfectious gastroenteritis and colitis Hematemesis, unspecified whether nausea present Hematochezia Blood in stool Hemiplegia and 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 (HCC) Portal hypertension (HCC) Portal hypertension Major depressive disorder, recurrent episode, moderate (HCC) Major depressive disorder, recurrent episode, moderate Morbid obesity, BMI not known (HCC) Morbid obesity Type II diabetes mellitus with neurological manifestations (HCC) Type II or unspecified type diabetes mellitus with neurological manifestations, not stated as uncontrolled MICHELLE (generalized anxiety disorder) Generalized anxiety disorder HTN, goal below 130/80 Unspecified essential hypertension Hyperlipidemia, unspecified hyperlipidemia type [employer] Other*[id number] Cirrhosis of liver with ascites, unspecified hepatic cirrhosis type (HCC) Thrombocytopenia (HCC) Thrombocytopenia, unspecified EVA (acute kidney injury) (HCC) Acute kidney failure, unspecified Colitis Other and unspecified noninfectious gastroenteritis and colitis Hematemesis, unspecified whether nausea present Hematochezia Blood in stool documented in this encounter Advance Directives Latest [...] patient have Health Care Power of Machine Tracer? No Code Status History Code Status Date Activated Date Inactivated Comments Full Code 01/21/2011 12:12 PM 01/22/2011 8:48 PM This order reflects the patients wishes and were consensually agreed upon. Question Answer Comments Discussion of Advance Directives occurred with: Patient Does the patient have a Living Will? No Does the patient have Health Care Power of Machine Tracer? No Care Teams Editor Relationship Specialty Start Date End Date Scott Weldon MD [address] [place] [address] PCP - General Family Medicine 08/03/18 documented as of this encounter
--- OUTSIDE RECORDS SUMMARY | 2024-02-02 09:04 | External Medical Summary | Summary of Care ---
Author Name Unknown Organization [facility] Address [address] [facility] [place] [address] Phone [phone] Care Team Providers Care Trolley Car Operator Name Role Phone Scott Weldon MD Primary Care Provider + Reason for Visit * Reason Comments Outpatient Testing Encounter Details Date Type Department Care Team (Late st Contact Info) Description 08/20/2023 12:00 PM EDT Laboratory Laboratory, [facility] [address] [place] [address] [facility] [address] [place] [address] [employer] Other*[id number]; Cirrhosis of liver with ascites, unspecified hepatic cirrhosis type (HCC); Thrombocytopenia (HCC); EVA (acute kidney injury) (HCC); Colitis; Hematemesis, unspecified whether nausea present; Hematochezia Allergies Active Allergy Reactions Criticality Noted Date [...] Dosing Unit 3 6 Active Glucose Blood (Publisha CONTOUR NEXT TEST) STRP Use to test [...] [facility]),DM type 2, not at goal ([facility]) INJECT UP TO 200 UNITS SUBCUTANEOSULY ONCE [...] 2, not at goal ([facility]) TAKE 1 TABLET BY MOUTH 2 TIMES [...] Per Obesity Taxonomy Coronary atherosclerosis of [place] coronary artery 09/15/2008 10/03/2008 Malaise and fatigue [...] mRNA, LNP-s, No Pre serve, 2-Dose Series ([email or web address]) 11/08/2020,10/11/2020 HEP A - Hepatitis A (Adult > 18 yrs) 04/11/2011, 09/20/2010 Hepatitis B, 20+ yrs 07/05/2015 Pneumococcal Conjugate Vacci ne, 20-valent ([id number]) 03/13/2023 Pneumococcal Polysaccharide PPV23 (Pneumovax) 02/19/2018,03/09/2007 Seasonal [...] Description 08/25/2023 9:30 AM EDT Telemedicine Psychiatry, [address] [place] [address] Rj Mai MD [address] [facility] [place] [address] 08/31/2023 11:40 AM EDT Laboratory Laboratory, [place] [address] [place] [address] [place], [facility] [address] [place] [facility] [place] [address] 08/31/2023 6:10 PM EDT Pharmacy Pharmacy, [place] [address] [place] [address] [place] [address] [place] [address] 09/02/2023 2:00 PM EDT Imaging Radiology [facility] 1st [facility] 132 [facility] [place] [address] 09/16/2023 1:20 PM EDT Office Visit Neurology [facility] [address] [place] [address] Yesenia Wayne PA-C [address] [facility] [place] [address] 09/23/2023 2:00 PM EDT Immunization/Injection Hematology/Oncology Treatment, [place] [address] [place] [phone] Nurse, Med 4 200 [facility] [place] [address] 11/05/2023 1:00 PM EDT Telemedicine Pharmacy, [facility] 132 [facility] [place] [address] [place] [address] 12/03/2023 9:30 AM EDT Procedure Only Endoscopy, [facility] [address] [facility] [place] [address] Aj Pruett DO [address] [place] [address] 02/24/2024 2:15 PM EDT Office Visit Hematology/Oncology [facility] [address] [facility] [place] [phone] Sunil Bourgeois MD [address] [facility] [place] [address] 03/16/2024 12:20 PM EDT Office Visit Family [facility] [address] [place] [address] Scott Weldon MD [address] [place] [address] Pending Results Name Type Priority Associated Diagnoses Date /Time MYCODE SUBSEQUENT ADULT Lab Routine [employer] Other*[id number] 08/20/2023 11:27 AM EDT CBC WITH WBC DIFFERENTIAL Lab Routine Cirrhosis [...] nausea present Hematochezia 08/20/2023 11:27 AM EDT MYCODE SST1 Lab Routine [employer] Other*[id number] 08/20/2023 11:27 AM EDT MYCODE SST2 Lab Routine [employer] Other*[id number] 08/20/2023 11:27 AM EDT CBC Lab Routine Cirrhosis of liver with ascites, unspecified hepatic cirrhosis type (HCC) Thrombocytopenia (HCC) EVA (acute kidney injury) (HCC) Colitis Hematemesis, unspecified whether nausea present Hematochezia 08/20/2023 11:27 AM EDT DIFFERENTIAL, AUTOMATED Lab Routine Cirrhosis of liver with ascites, unspecified hepatic cirrhosis type (HCC) Thrombocytopenia (HCC) EVA (acute kidney injury) (HCC) Colitis Hematemesis, unspecified whether nausea present Hematochezia 08/20/2023 11:27 AM EDT Health Maintenance Due Date Last [...] this encounter Medical Devices Implanted Type Area Ice Sculptor Device Identifier Shelf Expiration Date Model / Serial / Lot Neurostimul Intellis Adaptiv - [id number] - [id number] Implanted:Qty: 1 on 08/22/2022 by Rafia Small MD at OR [facility] N/A: Spine Lumbar [employer] 06/21/2023 [id number] / [id number] / Description:battery Medtronic Lead Kit 60 Cm Implanted:Qty: 1 on 08/22/2022 by Rafia Small MD at OR [facility] N/A: Spine Lumbar 02/01/2026 [id number] / / [id number] Medtronic Lead Kit 60cm Implanted:Qty: 1 on 08/22/2022 by Rafia Small MD at OR [facility] N/A: Spine Lumbar 03/21/2026 [id number] / / [id number] Envelope Tyrx Med Antibacteril - [id number] Implanted:Qty: 1 on 08/22/2022 by Rafia Small MD at OR [facility] N/A: Spine Lumbar [employer] 03/10/2023 [id number] / / [id number] documented as of this encounter Visit Diagnoses Diagnosis [employer] Other*[id number] Cirrhosis of liver with ascites, unspecified hepatic [...] patient have Health Care Power of Concrete Wall Grinder Operator? No Code Status History Code Status Date Activated Date Inactivated Comments Full Code 01/21/2011 12:12 PM 01/22/2011 8:48 PM This order reflects the patients wishes and were consensually agreed upon. Question Answer Comments Discussion of Advance Directives occurred with: Patient Does the patient have a Living Will? No Does the patient have Health Care Power of Concrete Wall Grinder Operator? No Care Teams Trolley Car Operator Relationship Specialty Start Date End Date Scott Weldon MD [address] [place] [address] PCP - General Family Medicine 08/03/18 documented as of this encounter
--- OUTSIDE RECORDS SUMMARY | 2024-02-02 09:05 | External Medical Summary ---
Author Name Unknown Address Unknown Organization [facility] [address] [place] [id number] Laboratory Report Ordering Provider Test Date Status MILA KNIGHT 08/20/2023 11:27:13 Final Observation Date Value Abnormality Reference (Units ) Status WBC, Total 08/20/2023 11:27:13 8.82 4.00-10.8 0 (K/uL) Final RBC 08/20/2023 11:27:13 4.66 3.85-5.15 (M/uL) Final Hemoglobin 08/20/2023 11:27:13 13.3 12.0-15.3 (g/dL) Final HCT 08/20/2023 11:27:13 41.1 36.0-45.2 (%) Final MCV 08/20/2023 11:27:13 88.2 81.5-97.5 (fL) Final MCH 08/20/2023 11:27:13 28.5 27.0-34.0 (pg) Final MCHC 08/20/2023 11:27:13 32.4 32.0-36.0 (g/dL) Final RDW 08/20/2023 11:27:13 15.0 11.5-15.5 (%) Final Platelets 08/20/2023 11:27:13 109 Below low normal 140 -400 (K/uL) Final MPV 08/20/2023 11:27:13 10.0 6.6-11.1 ( fL) Final Performing Location LABORATORY [facility] N[facility] 57-1 0 - [address] [place] [address]
--- OUTSIDE RECORDS SUMMARY | 2024-02-02 09:05 | External Medical Summary | Summary of Care ---
Author Name Unknown Organization [facility] Address 100 [facility] [address] [address] [address] [place] [address] Phone [phone] Care Team Providers Care Behavioral Intervention Specialist Name Role Phone Scott Montoya MD Primary Care Provider + Reason for Referral * Medication Prior Authorization - Pending Review Specialty Diagnoses / Procedures Referred By Dory payan Referred To Contact Diagnoses Controlled substance agreement signed Chronic bilateral low back pain with sciatica, sciatica laterality unspecified Chronic pain syndrome Scott Montoya MD [address] [place] [address] Referral ID Status Reason Start Date Expiration Date V isits Requested Visits Authorized [id number] Pending Review 999 999 Reason for Visit * Reason Onset Date Comments Medication Refill 08/17/2023 Encounter Details Date Type Department Care Team (Late st Contact Info) Description 08/17/2023 Refill Family Practice [facility] [address] [place] [address] Scott Montoya MD [address] [place] [address] Controlled substance agreement signed*; Chronic bilateral low back pain with sciatica, [...] Dosing Unit 3 6 Active Glucose Blood (ActiveCloud CONTOUR NEXT TEST) STRP Use to test [...] suspected opioid overdose. Seek immediate medical attention. [email or web address]?v=[email or web address] 1 Each 3 3 Active Omeprazole 20 [...] hemoglobin A1c goal of less than 8.0% ([facility]),HTN, goal below 130/80,Dyslipidemia , goal LDL below [...] hemoglobin A1c goal of less than 8.0% ([facility]),DM type 2, not at goal ([facility]) INJECT UP TO 200 UNITS [...] (Glucophage)Indicat ions:DM type 2, not at goal ([facility]) TAKE 1 TABLET BY MOUTH [...] for anxiety 120 Tablet 1 4 Active Buprenorphine 5 MCG/HR [...] mRNA, LNP-s, No Pre serve, 2-Dose Series (Element [employer]) 11/08/2020,10/11/2020 HEP A - Hepatitis A (Adult > 18 yrs) 04/11/2011, 09/20/2010 Hepatitis B, 20+ yrs 07/05/2015 Pneumococcal Conjugate Vacci ne, 20-valent ([id number]) 03/13/2023 Pneumococcal Polysaccharide PPV23 (Pneumovax) 02/19/2018,03/09/2007 Seasonal [...] Telephone Encounter - Scott Montoya MD - 08/20/2023 8:55 AM EDTSigned Prescriptions: Disp Refills Buprenorphine 5 MCG/HR Transdermal Patch W*4 Patch0 Sig: Place 1Patch topically on the skin once a week.Authorizing Provider: SCOTT MONTOYA * Telephone Encounter - Polly Clarke, [facility] - 08/20/2023 5:42 AM EDT Pending Prescriptions: Disp Refills Buprenorphine 5 MCG/HR Transdermal Patch W*4 Patch0 Sig: Place 1 Patch topically on the skin once a week. * Telephone Encounter - Hunter Waldron, [facility] - 08/19/2023 10:56 AM EDT Pending Prescriptions: Disp Refills Buprenorphine 5 MCG/HR Transdermal Patch W*4 Patch0 Sig: Place 1 Patch topically on the skin once a week. * Telephone Encounter - Rosalva Romero, [facility] - 08/18/2023 2:27 PM EDT Postponed until due I have reviewed the patients controlled substance dispensing history in the Prescription Drug Monitoring Program in compliance with the [facility] regulations before prescribing a controlled substance. PDMP checked on 08/18/2023. Pending Prescriptions: Disp Refills Buprenorphine 5 MCG/HR Transdermal Patch *4 Patch0 Sig: Place 1 Patch topically on the skin once a week. Last Visit: 03/13/2023 (in office), 09/08/2022 (telemedicine) Next Visit: 08/20/2023 Date medication was last filled: 218 Date medication is due for refill: 08/22 Pharmacy: [id number] [address] [facility] Is this request for a [...] Review. Please approve if appropriate. Thanks, Rosalva Romero, PharmD Clinical Pharmacist [facility] ([facility]) (formerly Telepharmacy) [phone] 08/18/2023 2:27 PM documented in this encounter Plan of Treatment Upcoming Encounters Date Type Department Care Team (Late st Contact Info) Description 08/20/2023 11:20 AM EDT Office Visit Family Practice [facility] [address] [place] [address] Vera Rojo DO [address] [place] [address] 08/25/2023 9:30 AM EDT Telemedicine Psychiatry, [facility] 200 [facility] [place] [address] Rj Mai MD [address] [place] [address] 08/31/2023 11:40 AM EDT Laboratory Laboratory, [place] [address] [place] [phone] [facility] Laboratory [address] [place] [address] 08/31/2023 6:10 PM EDT Pharmacy Pharmacy, [place] [address] [place] [address] [facility] [address] [place] [address] 09/02/2023 2:00 PM EDT Imaging Radiology [facility] 1st [facility] [address] [place] [address] 09/16/2023 1:20 PM EDT Office Visit Neurology [facility] [address] [place] [address] Yesenia Wayne PA-C 200 [facility] [place] [address] 09/23/2023 2:00 PM EDT Immunization/Injection Hematology/Oncology Treatment, [place] 200 [facility] [place] [phone] Nurse, Med 4 200 [facility] [place], [place] [address] 11/05/2023 1:00 PM EDT Telemedicine Pharmacy, [facility] [address] [place] [address] [facility] [address] [place], [place] [address] 12/03/2023 9:30 AM EDT Procedure Only Endoscopy, [facility] [address] [place] [address] Aj Pruett DO [address] [place] [address] 02/24/2024 2:15 PM EDT Office Visit Hematology/Oncology [facility] [place] 200 [facility] [place] [phone] Sunil Bourgeois MD 200 [facility] [place], [place] [address] Health Maintenance Due Date Last Done Comments [...] this encounter Medical Devices Implanted Type Area Visual Associate Device Identifier Shelf Expiration Date Model / Serial / Lot Neurostimul Intellis Adaptiv - [id number] - [id number] Implanted:Qty: 1 on 08/22/2022 by Rafia Small MD at OR [facility] N/A: Spine Lumbar [employer] 06/21/2023 [id number] / [id number] / Description:battery Medtronic Lead Kit 60 Cm Implanted:Qty: 1 on 08/22/2022 by Rafia Small MD at OR [facility] N/A: Spine Lumbar 02/01/2026 [id number] / / [id number] Medtronic Lead Kit 60cm Implanted:Qty: 1 on 08/22/2022 by Rafia Small MD at OR [facility] N/A: Spine Lumbar 03/21/2026 [id number] / / [id number] Envelope Tyrx Med Antibacteril - [id number] Implanted:Qty: 1 on 08/22/2022 by Rafia Small MD at OR [facility] N/A: Spine Lumbar [employer] 03/10/2023 [id number] / / [id number] documented as of this encounter Visit Diagnoses Diagnosis Controlled substance agreement signed- Primary Encounter for long-term (current) use of other medications Chronic bilateral low back pain with sciatica, sciatica laterality unspecified Chronic pain syndrome documented in this encounter Advance Directives Latest [...] the patient have Health Care Power of Radiography Technician? No Code Status History Code Status Date Activated Date Inactivated Comments Full Code 01/21/2011 12:12 PM 01/22/2011 8:48 PM This order reflects the patients wishes and were consensually agreed upon. Question Answer Comments Discussion of Advance Directives occurred with: Patient Does the patient have a Living Will? No Does the patient have Health Care Power of Radiography Technician? No Care Teams Behavioral Intervention Specialist Relationship Specialty Start Date End Date Scott Montoya MD 132 [facility] [place] [address] PCP - General Family Medicine 08/03/18 documented as of this encounter
--- OUTSIDE RECORDS SUMMARY | 2024-02-02 09:05 | External Medical Summary ---
Author Name Unknown Address Unknown Organization K01:LAB[facility]ATORY [facility] - [address] [place] [address] Laboratory Report Ordering Provider Test Date Status LISY LESTER 08/20/2023 11:27:13 Final Observation Date Value Abnormality Reference (Units ) Status MYCODE SPECIMEN-SST 08/20/2023 11:27:13 Freezing of extracted DNA, whole blood and/or serum. Final Performing Location LABORATORY [facility] - [address] [place] [address]
--- OUTSIDE RECORDS SUMMARY | 2024-02-02 09:05 | External Medical Summary ---
Author Name Unknown Address Unknown Organization K0[facility] - [address] [place] [address] Laboratory Report Ordering Provider Test Date Status MILA KNIGHT 08/20/2023 11:27:13 Final Observation Date Value Abnormality Reference (Units ) Status SYNC LEUKOCYTES IN BLOOD BY AUTOMATED COUNT 08/20/2023 11:27:13 8.82 4.00-10.80 (K/uL) Final Segs 08/20/2023 11:27:13 68.9 40.0-75.0 (%) Final Lymphs % 08/20/2023 11:27:13 20.5 18.0-42.0 (%) Final Monos 08/20/2023 11:27:13 7.4 1.0-11.0 (%) Final Eosinophils 08/20/2023 11:27:13 2.7 0.0-6.0 (%) Final Basos 08/20/2023 11:27:13 0.5 0.0-2.0 (%) Final Absolute Segs 08/20/2023 11:27:13 6.08 1.80-7.70 (K/uL) Final Lymphs, absolute 08/20/2023 11:27:13 1.81 1.00-4.80 (K/ul) Final Monos, Abs 08/20/2023 11:27:13 0.65 0.00-1.10 (K/uL) Final Eos, Abs 08/20/2023 11:27:13 0.24 0.00-0.70 (K/uL) Final Basos, Abs 08/20/2023 11:27:13 0.04 0.00-0.20 (K/uL) Final Performing Location LABORATORY [facility] N[facility] 57-1 0 - [address] [place] [address]
--- OUTSIDE RECORDS SUMMARY | 2024-02-02 09:05 | External Medical Summary ---
Author Name Unknown Address Unknown Organization K0G:LABORATORY [facility] NED 57-[address] - [address] [place] [address] Laboratory Report Ordering Provider Test Date Status MILA KNIGHT 08/20/2023 11:27:13 Final Observation Date Value Abnormality Reference (Units ) Status BUN 08/20/2023 11:27:13 23 Above high normal 6-20 (mg/dL) Final Creatinine 08/20/2023 11:27:13 1.5 Above high normal 0.5-1.0 (mg/dL) Final Glomerular filtration rate/1.73 sq M.predicted [Volume Rate/Area] in Serum, Plasma or Blood by Creatinine-based formula (CKD-EPI) 08/20/2023 11:27:13 43 Below low normal >=60 (mL/min) Final eGFR is calculated based on the CKD-EPI 2020 equation SODIUM 08/20/2023 11:27:13 140 135-146 (m mol/L) Final Potassium 08/20/2023 11:27:13 4.6 3.5-5.1 (m mol/L) Final Cl 08/20/2023 11:27:13 100 98-107 (mm ol/L) Final CO2 08/20/2023 11:27:13 30 22-32 (mmo l/L) Final Anion gap 08/20/2023 11:27:13 10 7-15 (mmol /L) Final Glucose 08/20/2023 11:27:13 74 70-120 (mg /dL) Final Albumin 08/20/2023 11:27:13 4.0 3.8-5.0 (g /dL) Final AST (Aspartate aminotransferase) 08/20/2023 11:27:13 40 Above high normal 10-35 (U/L) Final Alk Phos 08/20/2023 11:27:13 136 Above high normal 35 -130 (U/L) Final Bilirubin, Total 08/20/2023 11:27:13 0.5 <=1 .2 (mg/dL) Final Calcium 08/20/2023 11:27:13 9.2 8.4-10.2 ( mg/dL) Final Protein 08/20/2023 11:27:13 7.3 6.0-8.3 (g /dL) Final ALT (Alanine aminotransferase) 08/20/2023 11:27:13 14 10-35 (U/L) Jaswinder burns Performing Location LABORATORY [place] 57-[address] 0 - [address] [place] [address]
--- OUTSIDE RECORDS SUMMARY | 2024-02-02 09:05 | External Medical Summary | Summary of Care ---
Author Name Unknown Organization [facility] Address [address] [facility] [place] [address] Phone [phone] Care Team Providers Care Ibm Websphere Portal Developer Name Role Phone Scott Weldon MD Primary Care Provider + Reason for Visit * Reason Comments Follow Up 6m Encounter Details Date Type Department Care Team (Late st Contact Info) Description 08/19/2023 2:15 PM EDT Office Visit Hematology/Oncology [facility] [address] [facility] [place] [phone] Sunil Bourgeois MD [address] [place] [address] Iron deficiency anemia, unspecified iron deficiency anemia type*; Cirrhosis of liver without ascites, unspecified hepatic cirrhosis type (HCC) Allergies Active Allergy Reactions Criticality Noted Date Comments Naproxen Sodium Bleeding High 11/29/2013 Pollen 12/03/2022 Seasonal Food (See Comments) Anaphylaxis High 04/20/2019 Hot peppers (oils) Kiwi Extract Anaphylaxis High 04/20/2019 documented as of this encounter (statuses as of 08/19/2023) Medications Medication Sig Dispensed Refills Start Date [...] Dosing Unit 3 6 Active Glucose Blood ([employer] CONTOUR NEXT TEST) STRP Use to [...] 2, not at goal ([facility]) TAKE 1 TABLET BY MOUTH 2 [...] as of this encounter (statuses as of 08/19/2023) Active Problems Problem Noted Date Diagnosed Date [...] as of this encounter (statuses as of 08/19/2023) Resolved Problems Problem Noted Date Diagnosed Date [...] Per Obesity Taxonomy Coronary atherosclerosis of [place] coronary artery 09/15/2008 10/03/2008 Malaise and fatigue [...] as of this encounter (statuses as of 08/19/2023) Immunizations Name Administration Dates Next Due COVID-19 mRNA, LNP-s, No Pre serve, 2-Dose Series (Beezag) 11/08/2020,10/11/2020 HEP A - Hepatitis A (Adult > 18 yrs) 04/11/2011, 09/20/2010 Hepatitis B, 20+ yrs 07/05/2015 Pneumococcal Conjugate Vacci ne, 20-valent ([id number]) 03/13/2023 Pneumococcal Polysaccharide PPV23 (Pneumovax) 02/19/2018,03/09/2007 Seasonal [...] Sign Reading Time Taken Comments Blood Pressure 114/79 08/19/2023 2:02 PM EDT Pulse 91 08/19/2023 2:02 PM EDT Temperature 36.4 C (97.5 F) 08/19/2023 2:02 PM ED T Respiratory Rate 16 08/19/2023 2:02 PM EDT Oxygen Saturation 94% 08/19/2023 2:02 PM EDT Inhaled Oxygen Concentration - - Weight 103.2 kg (227 lb 8 oz) 08/19/2023 2:02 PM EDT Height - - Body Mass Index 37.27 03/13/2023 12:24 PM EDT documented in this [...] Progress Notes * Sunil Bourgeois MD - 08/19/2023 2:15 PM EDT Hematology/Oncology Outpatient Clinic note [facility] [address] [place] [address] Name: Carmen Tyson Date: 10/12/2020 CHIEF COMPLAINT: Carmen Tyson is a 53 year old female patient here today for f/u visit. DIAGNOSIS: Iron deficiency anemia -cirrhosis of liver, portal Hypertension, splenomegaly causing mild thrombocytopenia, she has esophageal varices which may be causing intermittent the upper GI bleed. -she had a uterine ablation several years back, no menstrual period since then. CURRENT TREATMENT: Observation. Could not tolerate oral iron treatment. Port flush every 6 weekly Earlier we will checking blood workup every 3 monthly but recently in 08/2023 she was admitted at [facility] for upper GI bleed, planning to check blood workup every 6 weekly when she comes for the port flush ( CBCD, Ferritin, iron profile). PREVIOUS TREATMENT: -No blood transfusion the past. [...] she had several imaging studies done at [facility], no ETOH abuse, imaging study showed hepatomegaly [...] She has come the clinic for the follow-up Recently in early August of 2023, she was admitted at [facility] for few days, reviewed hospital records, she had upper GI bleed, she was seen by GI, hemoglobin level dropped down to around 11.2 g/dL Platelet count stayed around 60,000 range, normal PT and PTT., Stable and normal Kidney liver function test noted. -Ferritin level was around 74 (08/13/2023). She did not receive any blood transfusion. GI planning for endoscopic evaluation as an outpatient. Overall she has not feeling quite well, has some increasing dizziness, she has underlying gastroparesis, frequent nausea and vomiting, weight loss by about 10 lb, current weight around 227 lb, stableleft-sided weakness. She came to clinic in the wheelchair. 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 Social Needs Financial resource strain: Not on [...] file Gets together: Not on file Attends adventist service: Not on file Active member of [...] Not Asked Social History Narrative Lives in [place] with , worked for the [employer] until 2010 Vaping/E-Cigarette Use Vaping/E-Cigarette Substances Vaping/E-Cigarette Devices Past Surgical History: Procedure Laterality Date COLONOSCOPY, DIAGNOSTIC (RECTUM) 06/06/2010 normal colon exam repeat in 5 years COLONOSCOPY, DIAGNOSTIC (RECTUM) 06/27/2015 retained stool, repeat/COLONOSCOPY FLEXIBLE PROXIMAL DIAGNOSTIC performed by Aj Pruett DO atENDOSCOPY [facility] EGD, FLEXIBLE, DIAGNOSTIC 01/22/2011 UPPER GI ENDOSCOPY DIAGNOSTIC performed by STACEY BENNETT at ENDOSCOPY [facility] EGD, FLEXIBLE, DIAGNOSTIC 01/19/2014 portal hypertensive gastropathy, benign gastric polyp, repeat 2 yrs/done @ [facility] EGD, FLEXIBLE, DIAGNOSTIC 02/08/2016 normal bx, portal hypertensive gastropathy, repeat 1.5 yrs/[facility] EGD, FLEXIBLE, DIAGNOSTIC 08/25/2017 retained food, repeat 1 yr/ESOPHAGOGASTRODUODENOSCOPY (EGD), FLEXIBLE, TRANSORAL, DIAGNOSTIC performed by Aj Pruett DO at ENDOSCOPY [facility] EGD, FLEXIBLE, DIAGNOSTIC 12/15/2018 esophageal varices, gastritis, gastric polyp, repeat 1 yr/ESOPHAGOGASTRODUODENOSCOPY (EGD), FLEXIBLE, TRANSORAL, DIAGNOSTIC performed by Aj Pruett DO at ENDOSCOPY [facility] EGD, FLEXIBLE, DIAGNOSTIC 01/31/2020 fundic polyps, eso varices, portal hypertensive gastropathy, repeat 1 yr / ESOPHAGOGASTRODUODENOSCOPY (EGD), FLEXIBLE, TRANSORAL, DIAGNOSTIC performed by Aj Pruett DO at ENDOSCOPY [facility] EGD, FLEXIBLE, DIAGNOSTIC 10/09/2022 grade I esophageal varices/portal hypertension gastropathy/medium amount of food in stomach/ESOPHAGOGASTRODUODENOSCOPY (EGD), FLEXIBLE, TRANSORAL, DIAGNOSTIC performed by Aj Pruett DO at ENDOSCOPY [facility] EGD, FLEXIBLE, W/BIOPSY 07/27/2012 small fundic stomach polyp/inflammation r/t reflux-repeat EGD in 1 yr EGD, W/ENDOSCOPIC US 01/22/2011 UPPER GI ENDOSCOPY ENDOSCOPIC ULTRASOUND performed by STACEY BENNETT at ENDOSCOPY [facility] EVAL NEUROSTIM PULSE GEN, W/ REPROGRAM N/A 06/27/2022 NEUROSTIMULATOR PULSE GENERATOR/ TRANSMITTER, WITH INTRAOPERATIVE OR SUBSEQUENT PROGRAMMING performed by Rafia Small MD at OR [facility] EVAL NEUROSTIM PULSE GEN, W/ REPROGRAM N/A 08/22/2022 NEUROSTIMULATOR PULSE GENERATOR/ TRANSMITTER, WITH INTRAOPERATIVE OR SUBSEQUENT PROGRAMMING performed by Rafia Small MD at OR [facility] HYSTEROSCOPY,DIAGNOSTIC 07/16/2006 NovaSure endomentrial ablation IMPLANT EPIDURAL NEUROELECTRODES N/A 06/27/2022 PERCUTANEOUS IMPLANTATION NEUROSTIMULATOR EPIDURAL performed by Rafia Small MD at OR [facility] IMPLANT EPIDURAL NEUROELECTRODES N/A 08/22/2022 PERCUTANEOUS IMPLANTATION NEUROSTIMULATOR EPIDURAL performed by Rafia Small MD at OR [facility] IMPLANT SPINAL NEURORECEIVER N/A 08/22/2022 INSERTION OR REPLACEMENT SPINAL NEUROSTIMULATOR GENERATOR performed by Rafia Small MD [facility] INJECT DX/THER SUBSTANCE INTERLAMINAR LUMBAR/SACRAL W IMAGE GUIDE 04/13/2017 INJECTION SPINE LUMBAR OR SACRAL performed by Rene Kate DO at OR [facility] INJECT DX/THER SUBSTANCE INTERLAMINAR LUMBAR/SACRAL W IMAGE GUIDE 12/10/2017 INJECTION SPINE LUMBAR OR SACRAL performed by Rene Kate DO at OR [facility] INSER TUNN ACC DEV;5 YRS/OLDER 03/24/2013 03/24/2013 at [facility] Placement of A-Port central venous access catheter with port Dr. Dewitt IOF CT GUIDED NEEDLE BIOPSY 07/11/2010 CT GUIDED NEEDLE ASPIRATION BIOPSY performed by JAMILA SAWANT at RADIOLOGY [facility] LIGATE/CUT OVIDUCT(S) 07/1995 Family History Problem Relation [...] daily 100 Each 5 Insulin Infusion Pump ([employer] 630G INSULIN PUMP) KIT Use as directed. [...] for suspectedopioid overdose. Seek immediate medical attention. [email or web address] 1 Each 3 Omeprazole 20 MG Oral [...] MORNING AND EVENING MEALS 180 Tablet 1 Buprenorphine 5 MCG/HR Transdermal Patch Weekly (Butrans) Place 1 Patch topically on the skin once a week. 4 Patch 0 Eszopiclone 2 MG Oral [...] as needed for anxiety 120 Tablet 1 No current facility-administered medications for this visit. OBJECTIVE: BP 114/79 (BP Site: Left Arm, BP Position: Sitting, BP Cuff Size: Large) | Pulse 91 | Temp 36.4 C(97.5 F) (Tympanic) | Resp 16 | Wt 103.2 kg (227 lb 8 oz) | SpO2 94% | BMI 37.27 kg/m | BSA 2.18 m Constitutional: Patient is alert, cooperative and [...] -WBC 8200, H&H of 12/38.7, Platelet count 065373 -Ferritin level --> 29 -Serum iron: 48, TIBC 374, iron saturation 13%. Blood workup done on 12/03/2022: -WBC 7900, H&H of 13.6/42.5, Platelet count 456068 -alpha-fetoprotein level --> 1.4 -BUN/Creat: 17/1.1, Calcium 9.1 -AST 60, ALT 25, alkaline phosphatase 186, total bilirubin 0.6 Blood workup done on 07/23/2023: - WBC 7500, H&H of 13.2/40, platelet count of 112,000 - Ferritin level --> 215 - Serum iron: 53, TIBC 289, and saturation 18% .- BUN/Creat: 14/1.3, CT scan of the abdomen pelvis on 08/11/2023: 1. Mild edema near the distal sigmoid colon, this could represent early colitis, there is no wall thickening of the sigmoid colon. 2. Fatty infiltration. Nodular liver contour, correlate for cirrhosis. IMPRESSION: History of LORAINE Cirrhosis of liver Portal HTN Mild thrombocytopenia Esophageal varices DM II For iron deficiency anemia, she had received intravenous iron in the form of Venofer, latest iron was received in September 2022. Subsequent blood workup showed improvement hemoglobin level and iron storage And we were checking the blood workup every 3 monthly. She is having port flushed every 6 weekly Recently in early August of 2023, she was admitted at [facility] for upper GI bleed, hemoglobin level dropped down to around 11.2 g/dL, did not receive blood transfusion support, no coagulopathy, Ferritin level was around 74 at that time I would like to repeat CBCD Ferritin, iron profile in about 2 weeks' time. If she is further drop in hemoglobin or iron storage, will consider for intravenous iron therapy. She will have port flushed every 6 weekly She will continue to follow-up with primary-care provider regarding other medical problems. I am planning to see her back in the clinic about [...] this encounter Nursing Notes * Bronwyn Murcia LPN - 08/19/2023 2:05 PM EDT Patient identifed by name and birthdate Do you have any concerns about pain management for today's visit? Yes. Patient instructed to discuss pain concerns with provider during the visit today Living Will or Advance Directive for Health Care as noted on the problem list. [facility] is a way you can talk to your provider on line through e-mail. Would you like to sign up? I can activate it for you? ALREADY ACTIVE Filed Vitals: 08/19/23 1402 BP: 114/79 Pulse: 91 Resp: 16 Temp: 36.4 C (97.5 F) TempSrc: Tympanic SpO2: 94% Weight: 103.2 kg (227 lb 8 oz) Patient was instructed to not get [...] 08/20/2023 11:20 AM EDT Office Visit Family [facility] [address] [place] [address] Vera Rojo DO [address] [place] [address] 08/25/2023 9:30 AM EDT Telemedicine [address], [address] [address] Rj Mai MD [address] [place] [facility] [place] [address] 08/31/2023 11:40 AM EDT Laboratory Laboratory, [address] [phone] [facility] [address] [facility], [place] [address] 08/31/2023 6:10 PM EDT Pharmacy Pharmacy, [place] [address] [address] [facility] [address] [facility], [place] [address] 09/02/2023 2:00 PM EDT Imaging Radiology [facility] 1st [facility] [address] [facility] [place] [address] 09/16/2023 1:20 PM EDT Office Visit Neurology [facility] [address] [facility] [place] [address] Yesenia Wayne PA-C [address] [facility] [place] [address] 09/23/2023 2:00 PM EDT Immunization/Injection Hematology/Oncology Treatment, [place] [address] [facility] [address] [place] [phone] Nurse, Med 4 [address] [facility] [place] [address] 11/05/2023 1:00 PM EDT Telemedicine Pharmacy, [facility] [address] [facility] [place] [address] [facility] [address] [facility] [place] [address] 12/03/2023 9:30 AM EDT Procedure Only Endoscopy, [facility] [address] [place] [address] Aj Pruett DO [address] [place] [address] 02/24/2024 2:15 PM EDT Office Visit Hematology/Oncology [facility] [place] [address] [place] [phone] Sunil Bourgeois MD [address] [facility] [address] [place] [address] Scheduled Orders Name Type Priority Associated Diagnoses Orde r Schedule CBC WITH WBC DIFFERENTIAL Lab STAT Cirrhosis of liver without ascites, unspecified hepatic cirrhosis type (HCC) Iron deficiency anemia, unspecified iron deficiency anemia type Expected: 08/31/2023, Expires: 08/18/2024 FERRITIN Lab Routine Cirrhosis of liver without ascites, unspecified hepatic cirrhosis type (HCC) Iron deficiency anemia, unspecified iron deficiency anemia type Expected: 08/31/2023, Expires: 08/18/2024 IRON SCREEN, INCLUDING TIBC Lab Routine Cirrhosis of liver without ascites, unspecified hepatic cirrhosis type (HCC) Iron deficiency anemia, unspecified iron deficiency anemia type Expected: 08/31/2023, Expires: 08/18/2024 Health Maintenance Due Date Last Done Comments [...] this encounter Medical Devices Implanted Type Area Insulation Technician Device Identifier Shelf Expiration Date Model / Serial / Lot Neurostimul Intellis [employer]iv - [id number] - [id number] Implanted:Qty: 1 on 08/22/2022 by Rafia Small MD at OR [facility] N/A: Spine Lumbar [employer] 06/21/2023 [id number] / [id number] / Description:battery Medtronic Lead Kit 60 Cm Implanted:Qty: 1 on 08/22/2022 by Rafia Small MD at OR [facility] N/A: Spine Lumbar 02/01/2026 [id number] / / [id number] Medtronic Lead Kit 60cm Implanted:Qty: 1 on 08/22/2022 by Rafia Small MD at OR [facility] N/A: Spine Lumbar 03/21/2026 [id number] / / [id number] Envelope Tyrx Med Antibacteril - [id number] Implanted:Qty: 1 on 08/22/2022 by Rafia Small MD at OR [facility] N/A: Spine Lumbar [employer] 03/10/2023 [id number] / / [id number] documented as of this encounter Visit Diagnoses Diagnosis Iron deficiency anemia, unspecified iron deficiency anemia type- Primary Cirrhosis of liver without ascites, unspecified hepatic cirrhosis type (HCC) documented in this encounter Advance Directives [...] the patient have Health Care Power of Agricultural Commodities Grader? No Code Status History Code Status Date Activated Date Inactivated Comments Full Code 01/21/2011 12:12 PM 01/22/2011 8:48 PM This order reflects the patients wishes and were consensually agreed upon. Question Answer Comments Discussion of Advance Directives occurred with: Patient Does the patient have a Living Will? No Does the patient have Health Care Power of Agricultural Commodities Grader? No Care Teams Ibm Websphere Portal Developer Relationship Specialty Start Date End Date Scott Weldon MD [address] [place] [address] PCP - General Family Medicine 08/03/18 documented as of this encounter
--- OUTSIDE RECORDS SUMMARY | 2024-02-02 09:05 | External Medical Summary | Summary of Care ---
Author Name Unknown Organization [facility] Address [address] [facility] [place] [address] Phone [phone] Care Team Providers Care Ornamental Painter Name Role Phone Scott Weldon MD Primary Care Provider + Reason for Visit * Reason Onset Date Comments FYI 08/20/2023 Encounter Details Date Type Department Care Team (Late st Contact Info) Description 08/20/2023 Telephone Family Practice [facility] [address] [place] [address] Scott Weldon MD [address] [place] [address] FY Allergies Active Allergy Reactions Criticality Noted Date [...] suspected opioid overdose. Seek immediate medical attention. [email or web address] 1 Each 3 3 Active [...] not at goal ([facility]) TAKE 1 TABLET BY MOUTH 2 TIMES [...] Overview: Per Obesity Taxonomy Coronary atherosclerosis of [place] coronary artery 09/15/2008 10/03/2008 Malaise and fatigue [...] mRNA, LNP-s, No Pre serve, 2-Dose Series ([employer]) 11/08/2020,10/11/2020 HEP A - Hepatitis A (Adult > 18 yrs) 04/11/2011, 09/20/2010 Hepatitis B, 20+ yrs 07/05/2015 Pneumococcal Conjugate Vacci ne, 20-valent ([id number]) 03/13/2023 Pneumococcal Polysaccharide PPV23 (Pneumovax) 02/19/2018,03/09/2007 Seasonal [...] Miscellaneous Notes * Telephone Encounter - Trinity Frank shipping clerk/admin - 08/20/2023 9:14 AM EDT Jose from [facility] calling to advise Syed jones does not need a PA. [employer]inity [employer] [facility] ([facility]) 08/20/2023,9:14 AM documented in this encounter Plan of Treatment Upcoming Encounters Date Type Department Care Team (Late st Contact Info) Description 08/20/2023 11:20 AM EDT Office Visit Family Practice [facility] [address] [place] [address] Vera Rojo DO [address] [place] [address] 08/25/2023 9:30 AM EDT Telemedicine Psychiatry, [facility] [address] [place] [address] [address] Rj Mai MD [address] [place] [address] 08/31/2023 11:40 AM EDT Laboratory Laboratory, [place] [address] [place] [address] [facility] [address] [place] [address] 08/31/2023 6:10 PM EDT Pharmacy Pharmacy, [place] [address] [place] [address] [facility] [address] [place] [address] 09/02/2023 2:00 PM EDT Imaging Radiology [facility] 1st [facility] [address] [place] [address] 09/16/2023 1:20 PM EDT Office Visit Neurology [facility] [address] [place] [address] [address] Yesenia Wayne PA-C [address] [place] [address] 09/23/2023 2:00 PM EDT Immunization/Injection Hematology/Oncology Treatment, [place] [address] [facility] [place] [phone] Nurse, Med [address] [place] [address] 11/05/2023 1:00 PM EDT Telemedicine Pharmacy, [facility] [place] [address] [place] [address] [facility] [place] [address] [place] [address] 12/03/2023 9:30 AM EDT Procedure Only Endoscopy, [facility] [address] [place] [address] Aj Pruett DO [address] [place] [address] 02/24/2024 2:15 PM EDT Office Visit [facility] [place] [address] [facility] [place] [phone] Sunil Bourgeois MD [address] [facility] [place], [place] [address] Health Maintenance Due Date Last Done Comments [...] this encounter Medical Devices Implanted Type Area Platform Power Technician Device Identifier Shelf Expiration Date Model / Serial / Lot Neurostimul Intellis Adaptiv - [id number] - [id number] Implanted:Qty: 1 on 08/22/2022 by Rafia Small MD at OR [facility] N/A: Spine Lumbar [employer] 06/21/2023 [id number] / [id number] / Description:battery Medtronic Lead Kit 60 Cm Implanted:Qty: 1 on 08/22/2022 by Rafia Small MD at OR [facility] N/A: Spine Lumbar 02/01/2026 [id number] / / [id number] Medtronic Lead Kit 60cm Implanted:Qty: 1 on 08/22/2022 by Rafia Small MD at OR [facility] N/A: Spine Lumbar 03/21/2026 [id number] / / [id number] Envelope Tyrx Med Antibacteril - [id number] Implanted:Qty: 1 on 08/22/2022 by Rafia Small MD at OR [facility] N/A: Spine Lumbar [employer] 03/10/2023 [id number] / / [id number] documented as of this encounter Advance Directives [...] the patient have Health Care Power of Schedule Manager? No Code Status History Code Status Date Activated Date Inactivated Comments Full Code 01/21/2011 12:12 PM 01/22/2011 8:48 PM This order reflects the patients wishes and were consensually agreed upon. Question Answer Comments Discussion of Advance Directives occurred with: Patient Does the patient have a Living Will? No Does the patient have Health Care Power of Schedule Manager? No Care Teams Ornamental Painter Relationship Specialty Start Date End Date Scott Weldon MD [address] [facility] [place] [address] PCP - General Family Medicine 08/03/18 documented as of this encounter
--- OUTSIDE RECORDS SUMMARY | 2024-02-02 09:05 | External Medical Summary ---
Author Name Unknown Address Unknown Organization K01:[facility] - [address] [place] [address] Laboratory Report Ordering Provider Test Date Status LISY LESTER 08/20/2023 11:27:13 Final Observation Date Value Abnormality Reference (Units ) Status MYCODE SPECIMEN-SST 08/20/2023 11:27:13 Freezing of extracted DNA, whole blood and/or serum. Final Performing Location [facility] - [address] [place] [address]
[2024-02-02] MEDS: CHECK BUPRENORPHINE PATCH SCH (09:06)
--- OUTSIDE RECORDS SUMMARY | 2024-02-02 09:06 | External Medical Summary | Summary of Care ---
Author Name Unknown Organization [facility] Address [address] [facility] [place] [address] Phone [phone] Care Team Providers Care Electronics Installer Name Role Phone Scott Weldon MD Primary Care Provider + Reason for Visit * Reason Onset Date Comments Outpatient Testing 08/12/2023 Encounter Details Date Type Department Care Team (Late st Contact Info) Description 08/12/2023 Telephone Gastroenterology, [address] [phone] Kayla Bennett PA-C [facility] [place] [address] Outpatient Testing Allergies Active Allergy Reactions Criticality Noted Date Comments Naproxen Sodium Bleeding High 11/29/2013 Pollen 12/03/2022 Seasonal Food (See Comments) Anaphylaxis High 04/20/2019 Hot peppers (oils) Kiwi Extract Anaphylaxis High 04/20/2019 documented as of this encounter (statuses as of 08/12/2023) Medications Medication Sig Dispensed Refills Start Date [...] suspected opioid overdose. Seek immediate medical attention. [email or web address] .[email or web address]?v=[email or web address] [email or web address] 1 Each 3 3 Active [...] ons:DM type 2, not at goal ([facility]) TAKE 1 TABLET BY MOUTH 2 [...] FOR NAUSEA 30 Tablet 0 4 Active documented as of this encounter (statuses as of 08/12/2023) Active Problems Problem Noted Date Diagnosed Date [...] as of this encounter (statuses as of 08/12/2023) Resolved Problems Problem Noted Date Diagnosed Date [...] Overview: Per Obesity Taxonomy Coronary atherosclerosis of [place] coronary artery 09/15/2008 10/03/2008 Malaise and fatigue [...] as of this encounter (statuses as of 08/12/2023) Immunizations Name Administration Dates Next Due COVID-19 mRNA, LNP-s, No Pre serve, 2-Dose Series (TerraLUX) 11/08/2020,10/11/2020 HEP A - Hepatitis A (Adult > 18 yrs) 04/11/2011, 09/20/2010 Hepatitis B, 20+ yrs 07/05/2015 Pneumococcal Conjugate Vacci ne, 20-valent ([id number]) 03/13/2023 Pneumococcal Polysaccharide PPV23 (Pneumovax) 02/19/2018,03/09/2007 Seasonal [...] encounter Miscellaneous Notes * Telephone Encounter - Kayla Bennett PA-C - 08/12/2023 2:57 PM EST Pt admitted to [facility] for hematemesis/BRBPR. Please schedule OP EGD/colonoscopy in approx 6-8 weeks - Please arrange OP hepatology follow-up for her liver disease - pt normally sees Dr. Fields in [place] and is over due to see him. ThanksKayla PA-C 08/12/2023 Department of Gastroenterology documented in this encounter Plan of Treatment Upcoming Encounters Date Type Department Care Team (Late st Contact Info) Description 08/14/2023 11:00 AM EST Office Visit Pharmacy, [place] [facility] [address] [facility] [place] [address] [place], [facility] [address] [facility] [place] [address] 08/19/2023 2:15 PM EDT Office Visit Hematology/Oncology [facility] [address] [facility] [place] [phone] Sunil Bourgeois MD [address] [facility] [place] [address] 08/19/2023 3:00 PM EDT Immunization/Injection Hematology/Oncology Treatment, [place] [facility] [phone] Nurse, Med 4 [address] [facility] [place] [address] 08/25/2023 9:30 AM EDT Telemedicine Psychiatry, [facility] [address] [facility] [place] [address] Rj Mai MD [address] [place] [address] 09/16/2023 1:20 PM EDT Office Visit Neurology [facility] [place] [address] [facility] [place] [address] Yesenia Wayne PA-C [address] [facility] [place] [address] 11/05/2023 1:00 PM EDT Telemedicine Pharmacy, [facility] [address] [facility] [address] [facility] [address] 12/03/2023 9:30 AM EDT Procedure Only Endoscopy, [facility] [address] [place] [address] Aj Pruett DO [address] [place] [address] Scheduled Orders Name Type Priority Associated Diagnoses Orde r Schedule EGD, FLEXIBLE, DIAGNOSTIC Procedures Routine Hematemesis without nausea BRBPR (bright red blood per rectum) Ordered: 08/12/2023 COLONOSCOPY Gastro Lower Routine Hematemesis without nausea BRBPR (bright red blood per rectum) Ordered: 08/12/2023 Health Maintenance Due Date Last Done Comments [...] this encounter Medical Devices Implanted Type Area Normalizer Device Identifier Shelf Expiration Date Model / Serial / Lot Neurostimul Intellis Adaptiv - [id number] - [id number] Implanted:Qty: 1 on 08/22/2022 by Rafia Small MD at OR [facility] N/A: Spine Lumbar [employer] 06/21/2023 [id number] / [id number] / Description:battery Medtronic Lead Kit 60 Cm Implanted:Qty: 1 on 08/22/2022 by Rafia Small MD at OR [facility] N/A: Spine Lumbar 02/01/2026 [id number] / / [id number] Medtronic Lead Kit 60cm Implanted:Qty: 1 on 08/22/2022 by Rafia Small MD at OR [facility] N/A: Spine Lumbar 03/21/2026 [id number] / / [id number] Envelope Tyrx Med Antibacteril - [id number] Implanted:Qty: 1 on 08/22/2022 by Rafia Small MD at OR [facility] N/A: Spine Lumbar [employer] 03/10/2023 [id number] / / [id number] documented as of this encounter Visit Diagnoses [...] the patient have Health Care Power of [place]? No Code Status History Code Status Date Activated Date Inactivated Comments Full Code 01/21/2011 12:12 PM 01/22/2011 8:48 PM This order reflects the patients wishes and were consensually agreed upon. Question Answer Comments Discussion of Advance Directives occurred with: Patient Does the patient have a Living Will? No Does the patient have Health Care Power of [place]? No Care Teams Electronics Installer Relationship Specialty Start Date End Date Scott Weldon MD [address] [place] [address] PCP - General Family Medicine 08/03/18 documented as of this encounter
--- OUTSIDE RECORDS SUMMARY | 2024-02-02 09:06 | External Medical Summary | Summary of Care ---
Author Name Unknown Organization [facility] Address [address] [place] [address] Phone [phone] Care Team Providers Care Assistant Director Of Residence Life Name Role Phone Scott Weldon MD Primary Care Provider + Reason for Visit * Reason Onset Date Comments Medication Refill 08/17/2023 Encounter Details Date Type Department Care Team (Late st Contact Info) Description 08/17/2023 Telephone Psychiatry, [place] [address], [place] [id number] Services, [facility] [address] [place] [address] Medication Refill Allergies Active Allergy Reactions Criticality Noted Date Comments Naproxen Sodium Bleeding High 11/29/2013 Pollen 12/03/2022 Seasonal Food (See Comments) Anaphylaxis High 04/20/2019 Hot peppers (oils) Kiwi Extract Anaphylaxis High 04/20/2019 documented as of this encounter (statuses as of 08/17/2023) Medications Medication Sig Dispensed Refills Start Date [...] Each 5 8 Active Insulin Infusion Pump (MINIMDelphinus Medical Technologies 630G INSULIN PUMP) KITIndications:Type 2 diabetes mellitus [...] overdose. Seek immediate medical attention. [email or web address]?v=[email or web address] 1 Each 3 3 Active Omeprazole 20 [...] ions:DM type 2, not at goal ([facility] [...] for anxiety 120 Tablet 1 4 Active Escitalopram Oxalate 20 MG Oral Tablet (Lexapro) Take 1 Tablet by mouth in the morning. 90 Tablet 1 3 08/17/19 24 Discontinu ed(Refill) hydrOXYzine HCl 25 MG Oral Tablet Take 1 tab during the day every 4-6 hours as needed for anxiety and take 2 tabs at bedtime as needed for anxiety 120 Tablet 3 3 08/17/19 24 Discontinu ed(Refill) documented as of this encounter (statuses as of 08/17/2023) Active Problems Problem Noted Date Diagnosed Date [...] exam 07/17/2016 Overview: Need pap/mammo. UTOX due 3/21 5/23 EGD-Mild portal hypertensive gastropathy was found in [...] as of this encounter (statuses as of 08/17/2023) Resolved Problems Problem Noted Date Diagnosed Date [...] as of this encounter (statuses as of 08/17/2023) Immunizations Name Administration Dates Next Due COVID-19 mRNA, LNP-s, No Pre serve, 2-Dose Series ([employer]) 11/08/2020,10/11/2020 HEP A - Hepatitis A (Adult > 18 yrs) 04/11/2011, 09/20/2010 Hepatitis B, 20+ yrs 07/05/2015 Pneumococcal Conjugate Vacci ne, 20-valent (Urybwzn45) 03/13/2023 Pneumococcal Polysaccharide PPV23 (Pneumovax) 02/19/2018,03/09/2007 Seasonal [...] encounter Miscellaneous Notes * Telephone Encounter - Amber Shepherd OSA - 08/17/2023 10:25 AM EDT Pt. is calling to request medication refill for Lexapro 20 mg. And Hydroxyzine 25 mg. Pt. Is currently out of medication.Preferred Pharmacy is [facility]. Pt. has a return appt. scheduled for 08/25/23. Pt. Would like to be contact when order is sent. documented in this encounter Plan of Treatment Upcoming Encounters Date Type Department Care Team (Late st Contact Info) Description 08/19/2023 2:15 PM EDT Office Visit Hematology/Oncology [facility] [place] [address] [place] [phone] Sunil Bourgeois MD 200 [facility] [place] [address] 08/19/2023 3:00 PM EDT Immunization/Injection Hematology/Oncology Treatment, [place] 200 [facility] [place] [phone] Nurse, Med 4 200 [facility] [place] [address] 08/20/2023 11:20 AM EDT Office Visit Family Practice [facility] [place] [address] Vera Rojo DO [address] [facility] [place] [address] 08/25/2023 9:30 AM EDT Telemedicine Psychiatry, [facility] [address] [facility] [place] [address] Rj Mai MD [address] [place] [address] 08/31/2023 6:10 PM EDT Pharmacy Pharmacy, [address] [address] 09/16/2023 1:20 PM EDT Office Visit Neurology [facility] [address] [address] Yesenia Wayne PA-C [address] [facility] [place] [address] 11/05/2023 1:00 PM EDT Telemedicine Pharmacy, [facility] [place] [address] [place], [facility] [place] [address] [place] [address] 12/03/2023 9:30 AM EDT Procedure Only Endoscopy, [facility] [address] [place] [address] Aj Pruett DO [address] [place] [address] Health Maintenance Due Date Last Done Comments [...] this encounter Medical Devices Implanted Type Area Full Decator Operator Device Identifier Shelf Expiration Date Model / Serial / Lot Neurostimul Intellis Adaptiv - [id number] - [id number] Implanted:Qty: 1 on 08/22/2022 by Rafia Small MD at OR [facility] N/A: Spine Lumbar [employer] 06/21/2023 [id number] / [id number] / Description:battery Medtronic Lead Kit 60 Cm Implanted:Qty: 1 on 08/22/2022 by Rafia Small MD at OR [facility] N/A: Spine Lumbar 02/01/2026 [id number] / / [id number] Medtronic Lead Kit 60cm Implanted:Qty: 1 on 08/22/2022 by Rafia Small MD at OR [facility] N/A: Spine Lumbar 03/21/2026 [id number] / / [id number] Envelope Tyrx Med Antibacteril - [id number] Implanted:Qty: 1 on 08/22/2022 by Rafia Small MD at OR [facility] N/A: Spine Lumbar [employer] 03/10/2023 [id number] / / [id number] documented as of this encounter Advance Directives [...] the patient have Health Care Power of Obstetrics Specialist? No Code Status History Code Status Date Activated Date Inactivated Comments Full Code 01/21/2011 12:12 PM 01/22/2011 8:48 PM This order reflects the patients wishes and were consensually agreed upon. Question Answer Comments Discussion of Advance Directives occurred with: Patient Does the patient have a Living Will? No Does the patient have Health Care Power of Obstetrics Specialist? No Care Teams Assistant Director Of Residence Life Relationship Specialty Start Date End Date Scott Weldon MD [address] [place] [address] PCP - General Family Medicine 08/03/18 documented as of this encounter
--- OUTSIDE RECORDS SUMMARY | 2024-02-02 09:06 | External Medical Summary | Summary of Care ---
Author Name Unknown Organization [facility] Address [address] [facility] [place] [address] Phone [phone] Care Team Providers Care Concrete Engineer Name Role Phone Scott Weldon MD Primary Care Provider + Reason for Visit * Reason Onset Date Comments Health Maintenance 07/31/2023 Encounter Details Date Type Department Care Team (Late st Contact Info) Description 07/31/2023 Telephone Family Practice [facility] [address] [place] [address] Scott Weldon MD [address] [place] [address] Health Maintenance Allergies Active Allergy Reactions Criticality [...] suspected opioid overdose. Seek immediate medical attention. [email or web address] 1 Each 3 11/28/19 23 Active Omeprazole 20 MG Oral Capsule [...] 8.0% (HCC),DM type 2, not at goal ([facility]) INJECT UP TO 200 UNITS SUBCUTANEOSULY ONCE [...] (Glucophage)Indica tions:DM type 2, not at goal ([facility]) TAKE 1 TABLET BY MOUTH 2 TIMES [...] bedtime. 180 Tablet 1 07/29/19 24 Active Escitalopram Oxalate 20 MG Oral [...] Tablet 3 02/03/20 23 024 Discontinued(Re fill) Ondansetron 8 MG Oral Tablet Disintegrating (Zofran) [...] Overview: Per Obesity Taxonomy Coronary atherosclerosis of [place] coronary artery 09/15/2008 10/03/2008 Malaise and fatigue [...] mRNA, LNP-s, No Pre serve, 2-Dose Series ([employer]) 11/08/2020,10/11/2020 HEP A - Hepatitis A (Adult > 18 yrs) 04/11/2011, 09/20/2010 Hepatitis B, 20+ yrs 07/05/2015 Pneumococcal Conjugate Vacci ne, 20-valent (Ohwsdvy52) 03/13/2023 Pneumococcal Polysaccharide PPV23 (Pneumovax) 02/19/2018,03/09/2007 Seasonal [...] encounter Miscellaneous Notes * Addendum Note - Naren Wilson LPN - 08/17/2023 2:22 PM EDTAddended by: NAREN WILSON on: 08/17/2023 02:22 PM Modules accepted: Orders * Telephone Encounter - Naren Wilson LPN - 08/17/2023 2:21 PM EDT Opth referral placed.Would like to see Noemi for Diabetic eye exam. Please review and sign if appropriate. * Telephone Encounter - Naren Wilson LPN - 08/17/2023 2:20 PM EDT Spoke to patient. Mammogram scheduled. Would like referral for eye . Referral pended. * Telephone Encounter - Naren Wilson LPN - 07/31/2023 12:03 PM EST Care [...] - [facility] 6.8 (H) 02/16/2019 09:09 AM BP Readings from Last 1 Encounters: 03/13/23 124/72 Reviewed Health Maintenance below: Health Maintenance Topic Date Due Cervical Cancer Screening 04/12/2018 Mammogram 05/07/2019 COLONOSCOPY-EVERY 5 YRS AGES 18-100 06/27/2020 Diabetic Eye Exam 01/16/2023 COVID-19 Vaccine (3 - 2022-24 season) 2023 B-12 06/11/2023 Zoster Vaccines (2 of 2) 06/14/2023 Pap Mamm Colon eye Care Gap Outreach Action Taken: Unable to reach documented in this encounter Plan of Treatment Upcoming Encounters Date Type Department Care Team (Late st Contact Info) Description 08/19/2023 2:15 PM EDT Office Visit Hematology/Oncology [facility] 200 [facility] [place] [phone] Sunil Bourgeois MD 200 [facility] [place] [address] 08/19/2023 3:00 PM EDT Immunization/Injection Hematology/Oncology Treatment, [place] [facility] [phone] Nurse, Med 4 [address] [place] [address] 08/20/2023 11:20 AM EDT Office Visit Family Practice [facility] [place] [address] Vera Rojo DO 132 [facility] [place] [address] 08/25/2023 9:30 AM EDT Telemedicine Psychiatry, [facility] [address] [address] Rj Mai MD [address] [place] [address] 08/31/2023 6:10 PM EDT Pharmacy Pharmacy, [address] [address] [facility] [address] [place] [address] 09/02/2023 2:00 PM EDT Imaging Radiology [facility] [place] [address] 09/16/2023 1:20 PM EDT Office Visit Neurology [facility] [place] 200 [facility] [place] [address] Yesenia Wayne PA-C [address] [place] [address] 11/05/2023 1:00 PM EDT Telemedicine Pharmacy, [facility] [address] [place] [address] [facility] [address] [place] [address] 12/03/2023 9:30 AM EDT Procedure Only Endoscopy, [facility] [address] [place] [address] Aj Pruett DO [address] [place] [address] Scheduled Orders Name Type Priority Associated Diagnoses Orde r Schedule MAMMOGRAM SCREENING [place]ER[place] BILATERAL Medical Imaging Routine Encounter for screening mammogram for malignant neoplasm of breast Expected: 08/17/2023, Expires: 09/16/2024 Health Maintenance Due Date Last Done Comments [...] this encounter Medical Devices Implanted Type Area Pool Installer Device Identifier Shelf Expiration Date Model / Serial / Lot Neurostimul Intellis Adaptiv - [id number] - [id number] Implanted:Qty: 1 on 08/22/2022 by Rafia Small MD at OR [facility] N/A: Spine Lumbar [employer] 06/21/2023 [id number] / [id number] / Description:battery Medtronic Lead Kit 60 Cm Implanted:Qty: 1 on 08/22/2022 by Rafia Small MD at OR [facility] N/A: Spine Lumbar 02/01/2026 [id number] / / [id number] Medtronic Lead Kit 60cm Implanted:Qty: 1 on 08/22/2022 by Rafia Small MD at OR [facility] N/A: Spine Lumbar 03/21/2026 [id number] / / [id number] Envelope Tyrx Med Antibacteril - [id number] Implanted:Qty: 1 on 08/22/2022 by Rafia Small MD at OR [facility] N/A: Spine Lumbar [employer] 03/10/2023 [id number] / / [id number] documented as of this encounter Visit Diagnoses Diagnosis Encounter for screening mammogram for malignant neoplasm of breast- Primary Other screening mammogram documented in this encounter Advance Directives Latest [...] the patient have Health Care Power of Long Distance Billing Operator? No Code Status History Code Status Date Activated Date Inactivated Comments Full Code 01/21/2011 12:12 PM 01/22/2011 8:48 PM This order reflects the patients wishes and were consensually agreed upon. Question Answer Comments Discussion of Advance Directives occurred with: Patient Does the patient have a Living Will? No Does the patient have Health Care Power of Long Distance Billing Operator? No Care Teams Concrete Engineer Relationship Specialty Start Date End Date Scott Weldon MD [address] [place] [address] PCP - General Family Medicine 08/03/18 documented as of this encounter
--- OUTSIDE RECORDS SUMMARY | 2024-02-02 09:06 | External Medical Summary | Summary of Care ---
Author Name Unknown Organization [facility] Address [address] [facility] [place] [address] Phone [phone] Care Team Providers Care Flavoring Maker Name Role Phone Scott Montoya MD Primary Care Provider + Reason for Referral * Evaluate & Treat - Unlimited Visits (Within 30 days (routine)) - Authorized Specialty Diagnoses / Procedures Referred By Dory payan Referred To Contact Ophthalmology Diagnoses Type 2 diabetes mellitus with hemoglobin A1c goal of less than 8.0% ([facility]) Scott Montoya MD [address] [place] [address] Referral ID Status Reason Start Date Expiration Date Visits Requested Visits Authorized [id number] Authorized Specialty Services Required 08/17/[phone] Question Answer Referral Priority Within 30 days (routine) Where should this appointment be scheduled? samra Referring for: Optometry Conditions Optometry Conditions Diabetic Eye Exam without Retinopathy Comments Diabetic Eye Exam Reason for Visit * Reason Onset Date Comments Health Maintenance 07/31/2023 Encounter Details Date Type Department Care Team (Late st Contact Info) Description 07/31/2023 Telephone Family Practice [facility] [address] [place] [address] [address] Scott Montoya MD [address] [place] [address] Health Maintenance Allergies Active Allergy Reactions Criticality [...] suspected opioid overdose. Seek immediate medical attention. [email or web address] 1 Each 3 11/28/19 23 Active Omep[address] [...] [facility]) INJECT UP TO 200 UNITS SUBCUTANEOSULY [...] (Glucophage)Indica tions:DM type 2, not at goal ([facility]) TAKE 1 TABLET BY MOUTH 2 [...] mRNA, LNP-s, No Pre serve, 2-Dose Series ([employer]) 11/08/2020,10/11/2020 HEP A - Hepatitis A (Adult > 18 yrs) 04/11/2011, 09/20/2010 Hepatitis B, 20+ yrs 07/05/2015 Pneumococcal Conjugate Vacci ne, 20-valent ([id number]) 03/13/2023 Pneumococcal Polysaccharide PPV23 (Pneumovax) 02/19/2018,03/09/2007 Seasonal [...] Addendum Note - Scott Montoya MD - 08/17/2023 3:03 PM EDTAddended by: SCOTT MONTOYA on: 08/17/2023 03:03 PM Modules accepted: Orders * Addendum Note - Naren Wilson LPN - 08/17/2023 2:22 PM EDTAddended by: NAERN WILSON on: 08/17/2023 02:22 PM Modules accepted: [...] Results Component Value Date/Time [facility] 5.8 (H) 07/23/2023 12:00 PM HEMOGLOBIN A1C [...] COVID-19 Vaccine (3 - 2022- season) 2023 B-12 06/11/2023 Zoster Vaccines (2 of 2) 06/14/2023 Pap Mamm Colon eye Care Gap Outreach Action Taken: Unable to reach documented in this encounter Plan of Treatment Upcoming Encounters Date Type Department Care Team (Late st Contact Info) Description 08/19/2023 2:15 PM EDT Office Visit Hematology/Oncology [facility] [address] [facility] [place] [address] Sunil Bourgeois MD [address] [facility] [place] [address] 08/19/2023 3:00 PM EDT Immunization/Injection Hematology/Oncology Treatment, [place] [address] [facility] [place] [phone] Nurse, Med 4 [address] [place] [address] 08/20/2023 11:20 AM EDT Office Visit Family Practice [facility] [address] [place] [address] Vera Rojo DO [address] [place] [address] 08/25/2023 9:30 AM EDT Telemedicine Psychiatry, [facility] [address] [facility] [place] [address] Rj Mai MD [address] [place] [address] 08/31/2023 6:10 PM EDT Pharmacy Pharmacy, [address] [address] 09/02/2023 2:00 PM EDT Imaging Radiology [facility] [address] [facility] [place] [address] 09/16/2023 1:20 PM EDT Office Visit Neurology [facility] [address] [facility] [place] [address] Yesenia Wayne PA-C [address] [facility] [place] [address] 11/05/2023 1:00 PM EDT Telemedicine Pharmacy, [facility] 132 [facility] [place] [address] [facility] [address] [facility] [place] [address] 12/03/2023 9:30 AM EDT Procedure Only Endoscopy, [facility] [place] [address] Aj Pruett DO [address] [place] [address] Scheduled Orders Name Type Priority Associated Diagnoses Orde r Schedule MAMMOGRAM SCREENING FEDER[place] BILATERAL Medical Imaging Routine Encounter for screening mammogram for malignant neoplasm of breast Expected: 08/17/2023, Expires: 09/16/2024 Scheduled Referrals Name Type Priority Associated Diagnoses Orde r Schedule ADULT/PEDS OPHTHALMOLOGY/OPTOM ETRY REFERRAL OP Referral Within 30 days (routine) Type 2 diabetes mellitus with hemoglobin A1c goal of less than 8.0% ([facility]) Ordered: 08/17/2023 Health Maintenance Due Date Last Done Comments [...] this encounter Medical Devices Implanted Type Area Mechanical Planner Device Identifier Shelf Expiration Date Model / Serial / Lot Neurostimul Intellis Adaptiv - [id number] - [id number] Implanted:Qty: 1 on 08/22/2022 by Rafia Small MD at OR [facility] N/A: Spine Lumbar [employer] 06/21/2023 [id number] / [id number] / Description:battery Medtronic Lead Kit 60 Cm Implanted:Qty: 1 on 08/22/2022 by Rafia Small MD at OR [facility] N/A: Spine Lumbar 02/01/2026 [id number] / / [id number] Medtronic Lead Kit 60cm Implanted:Qty: 1 on 08/22/2022 by Rafia Small MD at OR [facility] N/A: Spine Lumbar 03/21/2026 [id number] / / [id number] Envelope Tyrx Med Antibacteril - [id number] Implanted:Qty: 1 on 08/22/2022 by Rafia Small MD at OR [facility] N/A: Spine Lumbar [employer] 03/10/2023 [id number] / / [id number] documented as of this encounter Visit Diagnoses Diagnosis Encounter for screening mammogram for malignant neoplasm of breast- Primary Other screening mammogram Type 2 diabetes mellitus with hemoglobin A1c goal of less than 8.0% (HCC) documented in this encounter Advance Directives [...] the patient have Health Care Power of Bmw Service Technician? No Code Status History Code Status Date Activated Date Inactivated Comments Full Code 01/21/2011 12:12 PM 01/22/2011 8:48 PM This order reflects the patients wishes and were consensually agreed upon. Question Answer Comments Discussion of Advance Directives occurred with: Patient Does the patient have a Living Will? No Does the patient have Health Care Power of Bmw Service Technician? No Care Teams Flavoring Maker Relationship Specialty Start Date End Date Scott Montoya MD [address] [place] [address] PCP - General Family Medicine 08/03/18 documented as of this encounter
[2024-02-02] MEDS: ATENOLOL 25 MG TABLET PO SCH (09:07)
[2024-02-02] MEDS: BACLOFEN 10 MG TAB PO SCH (09:09)
[2024-02-02] MEDS: ESCITALOPRAM OXALATE 20 MG TAB PO SCH (09:09)
[2024-02-02] MEDS: LORATADINE 10 MG TAB PO SCH (09:10)
[2024-02-02] MEDS: PANTOprazole 40 MG TAB PO SCH (09:10)
[2024-02-02] MEDS: PREGABALIN 100 MG CAP PO SCH (09:11)
[2024-02-02] MEDS: INSULIN ASPART PER UNIT CHARGE SC SCH (09:52)
--- OUTSIDE RECORDS SUMMARY | 2024-02-02 09:53 | External Medical Summary | Summary of Care ---
Author Name Unknown Organization [facility] Address 100 [facility] [place] [address] Phone [phone] Care Team Providers Care Payment Poster Name Role Phone Scott Weldon MD Primary Care Provider + Reason for Visit * Reason Onset Date Comments Lethargy 02/01/2024 Encounter Details Date Type Department Care Team (Late st Contact Info) Description 02/01/[address] [facility] [address] [place] [address] OctoberGabriel MD [address] [place] [address] Lethargy Allergies Active Allergy Reactions Criticality Noted Date [...] Strip 5 02/17/2017 Active Insulin Infusion Pump (MINIM2sms 630G INSULIN PUMP) KITIndications:Type 2 diabetes mellitus with hemoglobin A1c goal of less than 8.0% ([facility]) Use as directed. 07/30/2017 Active CPAP every [...] suspected opioid overdose. Seek immediate medical attention. [email or web address] 1 Each 3 11/27/2022 Active [...] FOR ANXIETY 120 Tablet 1 01/28/2024 Active Eszopiclone 2 MG Oral Tablet (Lunesta) Take 1 Tablet by mouth at bedtime. 30 Tablet 02/01/2024 Active documented as of this encounter (statuses [...] Overview: Per Obesity Taxonomy Coronary atherosclerosis of [place] coronary artery 09/15/2008 10/03/2008 Malaise and fatigue [...] mRNA, LNP-s, No Pre serve, 2-Dose Series ([employer]) 11/08/2020,10/11/2020 HEP A - Hepatitis A (Adult > 18 yrs) 04/11/2011, 09/20/2010 Hepatitis B, 20+ yrs 07/05/2015 Pneumococcal Conjugate Vacci ne, 20-valent ([id number]) 03/13/2023 Pneumococcal Polysaccharide PPV23 (Pneumovax) 02/19/2018,03/09/2007 Seasonal [...] encounter Miscellaneous Notes * Telephone Encounter - Gabriel Madrigal MD - 02/01/2024 9:37 PM EDT 53 year old female with complex medical history including type 2 diabetes, MENDEZ cirrhosis, HTN, history of CVA called into the emergency line with hypotension to 90/50 and lethargy. Denies fevers, chills, other signs of systemic infection. Reports eating well throughout the day today. No falls. Shedid take her atenolol and her losartan earlier this evening. Given lethargy and hypotension I did recommend ED evaluation. Patient refused ambulance transport but her is taking her to [facility] for evaluation. Gabriel Madrigal MD documented in this encounter Plan of Treatment Upcoming Encounters Date Type Department Care Team (Latest Contact Info) Description 4 10:30 AM EDT Office Visit Pharmacy, [address] [address] [facility] [address] [place] [address] 4 2:15 PM EDT Office Visit Hematology/Onco logy [facility] 200 [facility] [place] [phone] Sunil Bourgeois MD 200 [facility] [place] [address] 4 12:00 PM EDT Telemedicine Psychiatry, [facility] [address] [facility] [place] [address] Rj Mai MD [address] [place] [address] 4 12:20 PM EDT Office Visit Family [facility] 132 [facility] [place] [address] Scott Weldon MD 132 [facility] [place] [address] 4 12:30 PM EDT Office Visit Ophthalmology, [facility] [address] [place] [address] Rolan Self, DO [address] [place] [address] 4 11:15 AM EDT Hospital Encounter ENDO [facility], Endoscopy Room [facility] [address] [place] [phone] Aj Pruett, DO [address] [place] [address] 4 11:15 AM EDT - 4 11:45 AM EDT Surgery ENDO [facility], Endoscopy Room [facility] [address] [place] [address] Aj Pruett, DO [address] [place] [address] ESOPHAGOGASTRODUODENOSCOPY (EGD), FLEXIBLE, TRANSORAL, DIAGNOSTIC 4 11:00 AM EST Telemedicine Pharmacy, [facility] [place] [address] [facility] [address] [place] [address] 4 1:40 PM EST Office Visit Nephrology, [facility] [address] [place] [address] Jonathan Mathew MD [address] [address] 5 8:00 AM EST Office Visit Family Practice [facility] [address] [place] [address] Scott Blackburn MD [address] [place] [address] Scheduled Procedures Name Priority Associated Diagnoses Date/Ti [...] this encounter Medical Devices Implanted Type Area Bindery Supervisor Device Identifier Shelf Expiration Date Model / Serial / Lot Neurostimul Intellis Adaptiv - [id number] - [id number] Implanted:Qty: 1 on 08/22/2022 by Rafia Small MD at OR [facility] N/A: Spine Lumbar [employer] 06/21/2023 [id number] / [id number] / Description:battery Medtronic Lead Kit 60 Cm Implanted:Qty: 1 on 08/22/2022 by Rafia Small MD at OR [facility] N/A: Spine Lumbar 02/01/2026 [id number] / / [id number] Medtronic Lead Kit 60cm Implanted:Qty: 1 on 08/22/2022 by Rafia Small MD at OR [facility] N/A: Spine Lumbar 03/21/2026 [id number] / / [id number] Envelope Tyrx Med Antibacteril - [id number] Implanted:Qty: 1 on 08/22/2022 by Rafia Small MD at OR [facility] N/A: Spine Lumbar [employer] 03/10/2023 [id number] / / [id number] Hemostatic Clip Res 235cm - [id number] Implanted:Qty: 4 on 10/05/2023 by Aj Pruett, DO at ENDOSCOPY [facility] : ENDOSCOPY 02/03/2026 [id number] / / Hemostatic Clip Res 235cm - [id number] Implanted:Qty: 1 on 10/05/2023 by Aj Pruett, DO at ENDOSCOPY [facility] : ENDOSCOPY 02/02/2026 [id number] / / documented as of this encounter [...] Power of Attor narda? No Care Teams Payment Poster Relationship Specialty Start Date End Date Scott Weldon MD [address] [place] [address] PCP - General Family Medicine 08/03/18 documented as of this encounter
--- OUTSIDE RECORDS SUMMARY | 2024-02-02 09:53 | External Medical Summary | Summary of Care ---
Author Name Unknown Organization [facility] Address 100 [facility] [place] [address] Phone [phone] Care Team Providers Care Athletic Field Custodian Name Role Phone Scott Weldon MD Primary Care Provider + Reason for Visit * Reason Onset Date Comments Medication Refill 12/30/2023 Encounter Details Date Type Department Care Team (Late st Contact Info) Description 12/30/2023 Telephone Family Practice [facility] [address] [place] [address] Scott Weldon MD [address] [place] [address] Medication Refill Allergies Active Allergy Reactions Criticality [...] Strip 5 02/17/2017 Active Insulin Infusion Pump (MINIMStereomood 630G INSULIN PUMP) KITIndications:Type 2 diabetes mellitus with hemoglobin A1c goal of less than 8.0% ([facility]) Use as directed. 07/30/2017 Active CPAP [...] suspected opioid overdose. Seek immediate medical attention. [email or web address]?v=[email or web address] [email or web address] 1 Each 3 11/27/2022 Active [...] Reflux 07/27/2012 09/15/2014 Lymphadenitis, unspecified, except mesenteric 12/07/20 12 10/06/2018 Pain of upper abdomen 03/03/20122018 [...] mRNA, LNP-s, No Pre serve, 2-Dose Series ([employer]) 11/08/2020,10/11/2020 HEP A - Hepatitis A (Adult > 18 yrs) 04/11/2011, 09/20/2010 Hepatitis B, 20+ yrs 07/05/2015 Pneumococcal Conjugate Vacci ne, 20-valent ([id number]) 03/13/2023 Pneumococcal Polysaccharide PPV23 (Pneumovax) 02/19/2018,03/09/2007 Seasonal [...] Telephone Encounter - Mila Sin LPN - 12/30/2023 4:14 PM EDT Received pt assistance ozempic Called pt, aware Will parts picker tomorrow Placed in med room fridge documented in this encounter Plan of Treatment Upcoming Encounters Date Type Department Care Team (Latest Contact Info) Description 4 10:30 AM EDT Office Visit Pharmacy, [place] [address] [facility] [address] [facility] [address] [facility] [place] [address] 4 2:15 PM EDT Office Visit Hematology/Onco [facility] [address] [place] [address] Sunil Bourgeois MD [address] [place], [place] [address] 4 12:00 PM EDT Telemedicine Psychiatry, [facility] 200 [facility] [place], [place] [address] Rj Mai MD [address] [place] [address] 4 12:20 PM EDT Office Visit Family Practice [facility] [address] [place] [address] Scott Weldon MD [address] [facility] [place] [address] 4 12:30 PM EDT Office Visit Ophthalmology, [facility] [address] [facility], [place] [address] Rolan Self, DO [address] [place] [address] 4 11:15 AM EDT Hospital Encounter ENDO [facility], Endoscopy Room [facility] [address] [facility] [place] [phone] Aj Pruett, DO [address] [place], [place] [address] 4 11:15 AM EDT - 4 11:45 AM EDT Surgery ENDO [facility], Endoscopy Room [facility] [address] [place] [phone] Aj Pruett, DO [address] [place] [address] ESOPHAGOGASTRODUODENOSCOPY (EGD), FLEXIBLE, TRANSORAL, DIAGNOSTIC 4 11:00 AM EST Telemedicine Pharmacy, [facility] [place] [address] [facility] [place] [address] 4 1:40 PM EST Office Visit Nephrology, [facility] [address] [address] Jonathan Mathew MD 200 [facility] [place] [address] 5 8:00 AM EST Office Visit Family Practice [facility] [place] [address] Scott Weldon MD [address] [place] [address] Scheduled Procedures Name Priority Associated Diagnoses Date/Ti [...] this encounter Medical Devices Implanted Type Area Landing Support Specialist Device Identifier Shelf Expiration Date Model / Serial / Lot Neurostimul Intellis Adaptiv - [id number] - [id number] Implanted:Qty: 1 on 08/22/2022 by Rafia Small MD at OR [facility] N/A: Spine Lumbar [employer] 06/21/2023 [id number] / [id number] / Description:battery Medtronic Lead Kit 60 Cm Implanted:Qty: 1 on 08/22/2022 by Rafia Small MD at OR [facility] N/A: Spine Lumbar 02/01/2026 [id number] / / [id number] Medtronic Lead Kit 60cm Implanted:Qty: 1 on 08/22/2022 by Rafia Small MD at OR [facility] N/A: Spine Lumbar 03/21/2026 [id number] / / [id number] Envelope Tyrx Med Antibacteril - [id number] Implanted:Qty: 1 on 08/22/2022 by Rafia Small MD at OR [facility] N/A: Spine Lumbar [employer] 03/10/2023 [id number] / / [id number] Hemostatic Clip Res 235cm - [id number] Implanted:Qty: 4 on 10/05/2023 by Aj Pruett DO at ENDOSCOPY [facility]COPY 02/03/2026 [id number] / / Hemostatic Clip Res 235cm - [id number] Implanted:Qty: 1 on 10/05/2023 by Aj Pruett DO at ENDOSCOPY [facility] : ENDOSCOPY 02/02/2026 [id number] / / documented as of this encounter [...] Power of Attor narda? No Care Teams Athletic Field Custodian Relationship Specialty Start Date End Date Scott Weldon MD [address] [place] [address] PCP - General Family Medicine 08/03/18 documented as of this encounter
[2024-02-02] MEDS: ATORVASTATIN 40 MG TAB PO SCH (10:18)
--- NOTE | 2024-02-02 14:03 | Pharmacy Report ---
Pharmacy Glycemic Short Note 2 - Date of Service February 02, 2024 - Glycemic Short BSG Results (Last 24 hours): 02/01/24 02/02/24 02/02/24 22:25 04:11 08:09 Glucose 154 H 79 POC Glucose 76 02/02/24 12:30 Glucose POC Glucose 94 OUTPATIENT ANTIDIABETIC REGIMEN: * Jardiance 10 mg once daily * Ozempic 2 mg once weekly * Metformin 1000 mg once daily * Novolin R insulin pump ~ 81 total units daily (per [facility] notes on 11/13/23) * 12 AM - 8 AM : 2.3 u/hr * 8 AM - 1 PM : 4.0 u/hr * 1 PM - 3 PM : 3.7 u/hr * 3 PM - 12 AM : 4.0 u/hr * A1C: 6.3% (11/13/2023) ASSESSMENT: * Carmen is a 53 YO F admitted for hypotension and with a history of T2DM. Pharmacy has been consulted to assist with glycemic management while inpatient. * Fasting BSG this AM was low. Lantus was initiated at 25 units this morning with an evening scale due to low BSG this AM and at lunch. * Novolog was initiated at a weight based stress of 3, but loosened due to low BSG during this AM. * Patient has been changed from home Novolin R pump to subcutaneous basal/bolus dosing during inpatient stay. PLAN FOR INPATIENT GLYCEMIC CONTROL: * Hold outpatient oral diabetes medications * Basal insulin * Lantus 0-20 units SQ QHS, see order for details * Bolus insulin * NovoLog per scale ACHS or Q6hrs while NPO * Goal Range: Low 110 mg/dL - High 140 mg/dL * Correction Factor: 20 mg/dL/unit * Nutritional / Prandial insulin per carb ratio of 1 unit per 6 grams CHO consumed
--- NOTE | 2024-02-02 17:35 | Communication Note ---
Date of Service: February 02, 2024 Seen resting in bed, not in distress Feels about the same as when she was admitted Still having generalized abdominal discomfort, sharp/sore Still having intermittent nausea Reports 2 episodes of diarrhea today No fevers or chills Denies problems with voiding General- oriented x 3, not in distress, speaks in sentences with no effort or accessory muscle use Eyes- anicteric Neck- no JVD Lungs- clear breath sounds bilaterally, no rales/wheezes Heart- normal rate, regular rhythm; no murmurs Abdomen- normal bowel sounds, nondistended, soft, Mild tenderness in all quadrants Extremities- no pretibial edema, no calf tenderness Neuro- alert, oriented x 3; no gross focal neurologic deficits Skin- warm & dry CT abdomen pelvis: Cirrhosis, otherwise unremarkable Status post EGD and colonoscopy last September which revealed esophageal varices with no bleeding, hemorrhoids Check lipase Repeat CBC, BMP, liver panel in a.m. Protonix 40 mg IV twice daily Stool PCR panel, C. difficile ordered IV fluids GI consult N.p.o. postmidnight Creatinine improving Continue IV fluids Check CPK as patient had a fall a few days ago Doppler US: There is a small 1.4 x 1.3 x 0.9 cm probable left popliteal fossa lymph node. Follow-up recommended. Nile Willard MD
[2024-02-02] MEDS: PANTOprazole 40 MG in SYRINGE 0 ML IV SCH ×2 (18:50→20:22)
[2024-02-02] MEDS: traZODone HCL 100 MG TAB PO SCH (20:45)
[2024-02-02 22:37] LABS: Creatine Kinase 52 U/L (26-192); Lipase 57 U/L (11-82)
[2024-02-03] MEDS: INSULIN ASPART PER UNIT CHARGE SC SCH (00:24)
[2024-02-03 06:30] LABS: Basophils # (auto) 0.05 K/uL (0.00-0.20); Basophils % (auto) 0.7 %; Eosinophils # (auto) 0.18 K/uL (0.00-0.50); Eosinophils % (auto) 2.4 %; Hemoglobin 11.1 g/dl (12.0-16.0); Immature Granulocytes # (auto) 0.03 K/uL (0.01-0.20); Immature Granulocytes % (auto) 0.4 %; Lymphocytes # (auto) 0.84 K/uL (1.20-3.40); Lymphocytes % (auto) 11.3 %; Mean Corpuscular Hemoglobin 26.7 pg (25.0-34.0); Mean Corpuscular Hgb Conc 30.8 g/dL (32.0-36.0); Mean Corpuscular Volume 86.7 fL (80.0-100.0); Mean Platelet Volume 9.8 fL (9.4-12.4); Monocytes # (auto) 0.37 K/uL (0.11-0.59); Neutrophils # (auto) 5.98 K/uL (1.40-6.50); Neutrophils % (auto) 80.2 %; Platelet Count 68 K/uL (130-400); RDW Coefficient of Variation 14.2 % (11.5-14.5); RDW Standard Deviation 44.9 fL (36.4-46.3); Red Blood Count 4.15 M/uL (4.20-5.40); White Blood Count 7.45 K/ul (4.8-10.8)
[2024-02-03 06:57] LABS: Albumin Level 3.6 gm/dl (3.4-5.0); BUN Creatinine Ratio 15.1 (10-20); Bilirubin Direct 0.2 mg/dl (0-0.2); Bilirubin,Total 0.7 mg/dl (0.2-1.0); Calcium 8.3 mg/dl (8.6-10.3); Creatinine Clr Calc Pharmacy 56.2 ml/min; Est GFR (African American) 47.8 ml/min; Est GFR (Non-African American) 41.2 ml/min; Total Protein 6.7 gm/dl (6.0-8.3)
--- NOTE | 2024-02-03 07:02 | Electrocardiogram Report ---
Test Reason : Blood Pressure : */* mmHG Vent. Rate : 76 BPM Atrial Rate : 76 BPM P-R Int : 150 ms QRS Dur : 80 ms QT Int : 324 ms P-R-T Axes : -18 -10 220 degrees QTcB Int : 364 ms Normal sinus rhythm Minimal voltage criteria for LVH, may be normal variant ( R in aVL ) Inferior infarct , age undetermined Poor R wave progression, consider anterior RI vs. lead placement vs. LVH Nonspecific T wave abnormality Abnormal ECG When compared with ECG of 14-Aug-2023 06:30, Inferior infarct is now Present Confirmed by Jose Georges ([id number]) on 02/03/2024 7:02:11 AM Referred By: REFERRED SELF Confirmed By: Jose Georges
[2024-02-03] MEDS: ACETAMINOPHEN 500 MG TAB PO PRN (08:42)
--- NOTE | 2024-02-03 09:58 | Hospitalist Progress Note ---
Date of Service February 03, 2024 Assessment & Plan (1) Hypotension: (2) EVA (acute kidney injury): Plan Patient presented with worsening abdominal pain and presyncope Her blood pressure was noted to be low at SBP of 80s at home. Recently, her blood pressure has been on lower range as outpatient leading to decrease in her diuretic dose by her office clerk assistant. CT abdomen and pelvis on admission showed cirrhosis with mild nonspecific splenomegaly. Her creatinine was found to be 2.3 on admission Stop all antihypertensive for the time being Will hold off on additional IV fluids at this time GI consulted for persistent abdominal discomfort; appreciate recommendation Plan to continue Jardiance at discharge. Plan to decrease Lasix to 20 mg every other day and discontinue losartan. 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 SCDs Re: Thrombocytopenia Full code Time spent evaluating patient, direct bedside care, chart review, placing orders, interpretation of diagnostic studies, discussion with consultants, patient, and family members, as well as other required patient management activ ities is 50 minutes Please note the above document was generated using voice recognition software. It may contain grammatical, syntax or spelling errors. Any formal questions or concerns about the content, text or information contained within the body of this dictation should be directly addressed to the provider for clarification Admission and Anticipated Discharge Date Admission Date: February 02, 2024 Subjective Patient seen and examined at bedside. Comfortable; not in distress. Denies fever, chills, chest pain, shortness of breath, abdominal pain or urinary symptoms. No significant overnight events Review of Systems Review of Systems: All systems reviewed & are unremarkable except as noted in Subjective Physical Exam Physical Exam: GENERAL: Alert oriented x 3; not in distress. SKIN: Pallor, warm HEENT: Bespectacled, pale palpebral conjunctivae, no ptosis, dry buccal mucosa, nasal cannula in place NECK : Supple, short neck, no tenderness CHEST : Decreased breath sounds, no tenderness HEART : RRR, no obvious murmurs ABDOMEN: slightly distended, non-tender EXTREMITIES :LLE swelling, no LE tenderness, no other conspicuous deformities noted NEUROLOGIC : Coherent, no facial asymmetry, gait and stance not assessed Results & Data Results & Data Vital Signs (Past 12 Hours) Vital Signs Temp Pulse Pulse Resp BP Pulse Ox O2 Del Method 02/03/24 07:42 88 02/03/24 07:42 37.0 C 89 18 109/72 91 Room Air 02/03/24 03:38 37.2 C 99 H 20 149/83 H 93 BiPAP 02/03/24 03:34 85 12 95 02/02/24 23:00 37.2 C 89 20 126/80 95 BiPAP 02/02/24 22:06 87 13 97 O2 Flow Rate 02/03/24 07:42 02/03/24 07:42 02/03/24 03:38 2 02/03/24 03:34 2 02/02/24 23:00 2 02/02/24 22:06 2
--- NOTE | 2024-02-03 10:01 | Gastrointestinal Consultation ---
Date of Consultation February 03, 2024 Assessment & Plan (1) Abdominal pain: patient is a 53 year old female admitted with low blood pressure. GI consulted for for abdominal pain, nausea, and history of cirrhosis. She reports a history of gastroparesis and says that reglan has helped as an outpatient but she does not use this regularly. I suspect that her symptoms likely relate to gastroparesis. - can start her on reglan 5mg ACHS and see how she does. - continue with promethazine as needed for nausea/vomiting. - contine with protonix 40mg IV bid. - she tells me she is set up for outpatient endoscopy in the coming weeks with her regular GI at [facility]. she should keep this appointment and follow up with hepatology at [facility] on discharge. Supervising Physician Co-Signing Physician Notes I saw and examined this patient with our nurse practitioner and agree with her assessment and plan. Patient with chronic abdominal pain multifactorial in etiology. Element related to gastroparesis. She has had some response to intermittent use of metoclopramide. Recommend starting metoclopramide 5 mg before each meal. Discussed potential risk of tardive dyskinesia with her which is low. She has agreed to try on a regular basis and to discontinue the medicine if she experiences symptoms of tardive dyskinesia. History of Present Illness Reason for Consultation: intractable abdominal pain, nausea, history of cirrhosis. Requesting Physician: Nile Willard MD Attending Physician: Ruben Hayden MD History of Present Illness Patient is a 53 year old female who presented to the emergency room 02/01 due to concern for abdominal pain and low blood pressure. She tells me that abdominal pain has been bothering her intermittently over the last several weeks though this has been a chronic issue. Patient states she has a history of cirrhosis, pancreatitis, and gastroparesis and so it is not uncommon for her to have abdominal pain. She does wear pain patch and has a pain stimulator as she tells me she has chronic abdominal pain. She states eating generally brings out pain and/or makes it worse. She suspects that it is related to her gastroparesis. This morning, she was eating breakfast and had toast and started to feel nauseated. she also admits to acid reflux. No bowel movements since admission. no changes in bowels. She follows her GI care with [facility] as an outpatient. she had EGD and colonoscopy done in September 2023 and she tells me she had esophageal varices and hemorrhoids. she tells me that in the past she was prescribed reglan which does seem to help her symptoms but she does not take regularly. she denies any side effects to the medication and is aware of the side effects that can happen on the medication. CT 02/01/24 Cirrhosis. Mild nonspecific splenomegaly. This could relate to portal hypertension. Allergies Allergy/AdvReac Type Severity Reaction Status Date / Time naproxen Allergy Unknown BLEEDING Verified 08/11/23 20:32 Home Medications Medication Instructions Recorded Confirmed Type albuterol sulfate 90 mcg/actuation 2 puff inhalation Q6 PRN Shortness 08/11/23 02/02/24 History aerosol inhaler Of Breath Or Wheezing atenolol 100 mg tablet 100 mg PO BID 08/11/23 02/02/24 History atorvastatin 40 mg tablet 40 mg PO DAILYBL 08/11/23 02/02/24 History baclofen 10 mg tablet 10 mg PO TID 08/11/23 02/02/24 History buprenorphine 5 mcg/hour weekly 1 patch topical WK 08/11/23 02/02/24 History transdermal patch dicyclomine 20 mg tablet 20 mg PO HS 08/11/23 08/11/23 History escitalopram oxalate 20 mg tablet 20 mg PO DAILY 08/11/23 02/02/24 History eszopiclone 2 mg tablet 2 mg PO HS 08/11/23 02/02/24 History furosemide 40 mg tablet 40 mg PO BID 08/11/23 02/02/24 History hydroxyzine HCl 25 mg tablet 25 mg PO TID PRN Anxiety 08/11/23 02/02/24 History insulin regular human 100 unit/mL 0 unit continuous subcutaneous 08/11/23 08/11/23 History injection solution (Novolin R infusion DIRECTED Regular U-100 Insulin) loratadine 10 mg tablet 10 mg PO QAM 08/11/23 02/02/24 History losartan 25 mg tablet 25 mg PO HS 08/11/23 02/02/24 History magnesium oxide 400 mg PO DAILY 08/11/23 02/02/24 History meclizine 25 mg tablet 25 mg PO TID PRN .dizzy 08/11/23 08/11/23 History metformin 1,000 mg tablet 1,000 mg PO DAILY 08/11/23 02/02/24 History metoclopramide HCl 5 mg tablet 5 mg PO AC PRN Nausea 08/11/23 02/02/24 History naloxone 4 mg/actuation nasal spray 4 mg intranasal DIRECTED PRN 08/11/23 08/11/23 History opiod od ondansetron 8 mg disintegrating 8 mg translingual Q8 PRN Nausea 08/11/23 08/11/23 History tablet potassium chloride 10 mEq 20 meq PO BID 08/11/23 02/02/24 History tablet,extended release pregabalin 100 mg capsule 100 mg PO TID 08/11/23 02/02/24 History semaglutide 2 mg/dose (8 mg/3 mL) 2 mg subcut .WEEKLY 08/11/23 02/02/24 History subcutaneous pen injector (Ozempic) spironolactone 50 mg tablet 50 mg PO QAM 08/11/23 08/11/23 History trazodone 100 mg tablet 100 - 200 mg PO HS 08/11/23 02/02/24 History cefdinir 300 mg capsule 300 mg PO BID #16 caps 08/14/23 Rx metronidazole 500 mg tablet 500 mg PO TID #24 tabs 08/14/23 Rx Jardiance 10 mg PO DAILY 02/02/24 02/02/24 History pantoprazole 40 mg tablet,delayed 40 mg PO DAILY 02/02/24 02/02/24 History release Patient History Medical History (Updated 02/02/24 @ 00:25 by Falguni Landers DO) Stroke Seizure Vertigo Liver cancer H/O TIA (transient ischemic attack) and stroke Hypertension Surgical History History of tubal ligation History of hysterectomy Family History Other No significant family history Social History Smoking Status: Current every day smoker Tobacco Type: Cigarettes Second Hand Exposure: No; Do You Dip or Chew Tobacco: No; Hx Alcohol Use: No Hx Substance Use: No Preferred Language: Czech Communication Ability: Effective Statue Maker Required: No Beliefs That Will Affect Care: None Current Living Situation: Spouse Current Living Situation Comment: and a son Feels Safe at Home: Yes Safety Concerns: Feels Safe At This Time Assistive Devices: Cane and CPAP Review of Systems Review of Systems: All systems reviewed & are unremarkable except as noted in HPI & below Physical Exam Constitutional: WD/WN, vitals as above Respiratory: normal respiratory effort, lungs clear to auscultation Cardiovascular: Rate/Rhythm: regular rate and regular rhythm Gastrointestinal (Abdomen): epigastric tenderness to palpation, no guarding, soft, normal bowel sounds. Psychiatric: Orientation: alert and oriented x 3 Affect: euthymic affect Results & Data Vital Signs (Past 12 Hours) Vital Signs Temp Pulse Pulse Resp BP Pulse Ox O2 Del Method 02/03/24 07:42 88 02/03/24 07:42 98.6 F 89 18 109/72 91 Room Air 02/03/24 03:38 99.0 F 99 H 20 149/83 H 93 BiPAP 02/03/24 03:34 85 12 95 02/02/24 23:00 99.0 F 89 20 126/80 95 BiPAP 02/02/24 22:06 87 13 97 O2 Flow Rate 02/03/24 07:42 02/03/24 07:42 02/03/24 03:38 2 02/03/24 03:34 2 02/02/24 23:00 2 02/02/24 22:06 2 Laboratory Results Laboratory Results - last 48 hr 02/01/24 02/02/24 02/02/24 22:25 04:11 05:00 WBC 5.96 5.48 RBC 4.49 3.83 L Hgb 11.9 L 10.3 L Hct 38.6 33.1 L MCV 86.0 86.4 MCH 26.5 26.9 MCHC 30.8 L 31.1 L RDW Std Deviation 44.6 44.7 RDW Coeff of Bailey 14.4 14.3 Plt Count 87 L 66 L MPV 10.3 9.9 Immature Gran % (Auto) 0.3 0.4 Neut % (Auto) 64.8 62.0 Lymph % (Auto) 22.0 24.5 Harrison % (Auto) 8.2 8.8 Eos % (Auto) 4.0 3.6 Baso % (Auto) 0.7 0.7 Neut # (Auto) 3.86 3.40 Lymph # (Auto) 1.31 1.34 Harrison # (Auto) 0.49 0.48 Eos # (Auto) 0.24 0.20 Baso # (Auto) 0.04 0.04 Immature Gran # (Auto) 0.02 0.02 PT 11.4 INR 1.1 APTT 23 PTT Ratio 0.9 Sodium 141 142 Potassium 4.4 4.2 Chloride 103 107 Carbon Dioxide 30 30 Anion Gap 8 5 BUN 29 H 27 H Creatinine 2.33 H 1.94 H D Est Cr Clr Drug Dosing Not Reportable 42.4 Est GFR ( Amer) 27.2 33.9 Est GFR (Non-Af Amer) 23.4 29.3 BUN/Creatinine Ratio 12.4 13.9 Glucose 154 H 79 POC Glucose Lactate 1.7 Calcium 9.0 7.9 L Magnesium 2.1 Total Bilirubin 0.5 Direct Bilirubin AST 32 ALT 10 Alkaline Phosphatase 139 H Ammonia 22.0 Total Creatine Kinase Troponin I High Sens 2.6 Total Protein 7.8 Albumin 4.2 Globulin 3.6 Albumin/Globulin Ratio 1.2 Lipase Procalcitonin 0.08 Urine Color Yellow Urine Appearance Clear Urine pH 5.0 Ur Specific Paterson 1.019 Urine Protein Negative Urine Glucose (UA) 3+ H Urine Ketones Negative Urine Blood Negative Urine Nitrite Negative Urine Bilirubin Negative Urine Urobilinogen Negative Ur Leukocyte Esterase Trace H Urine WBC (Auto) 0-5 Urine RBC (Auto) 0-2 U Hyaline Cast (Auto) 3-5 H U Epithel Cells (Auto) 0-2 Urine Bacteria (Auto) None Seen 02/02/24 02/02/24 02/02/24 08:09 12:30 17:52 WBC RBC Hgb Hct MCV MCH MCHC RDW Std Deviation RDW Coeff of Bailey Plt Count MPV Immature Gran % (Auto) Neut % (Auto) Lymph % (Auto) Harrison % (Auto) Eos % (Auto) Baso % (Auto) Neut # (Auto) Lymph # (Auto) Harrison # (Auto) Eos # (Auto) Baso # (Auto) Immature Gran # (Auto) PT INR APTT PTT Ratio Sodium Potassium Chloride Carbon Dioxide Anion Gap BUN Creatinine Est Cr Clr Drug Dosing Est GFR ( Amer) Est GFR (Non-Af Amer) BUN/Creatinine Ratio Glucose POC Glucose 76 94 94 Lactate Calcium Magnesium Total Bilirubin Direct Bilirubin AST ALT Alkaline Phosphatase Ammonia Total Creatine Kinase Troponin I High Sens Total Protein Albumin Globulin Albumin/Globulin Ratio Lipase Procalcitonin Urine Color Urine Appearance Urine pH Ur Specific Paterson Urine Protein Urine Glucose (UA) Urine Ketones Urine Blood Urine Nitrite Urine Bilirubin Urine Urobilinogen Ur Leukocyte Esterase Urine WBC (Auto) Urine RBC (Auto) U Hyaline Cast (Auto) U Epithel Cells (Auto) Urine Bacteria (Auto) 02/02/24 02/02/24 02/02/24 18:14 20:22 21:32 WBC RBC Hgb Hct MCV MCH MCHC RDW Std Deviation RDW Coeff of Bailey Plt Count MPV Immature Gran % (Auto) Neut % (Auto) Lymph % (Auto) Harrison % (Auto) Eos % (Auto) Baso % (Auto) Neut # (Auto) Lymph # (Auto) Harrison # (Auto) Eos # (Auto) Baso # (Auto) Immature Gran # (Auto) PT INR APTT PTT Ratio Sodium Potassium Chloride Carbon Dioxide Anion Gap BUN Creatinine Est Cr Clr Drug Dosing Est GFR ( Amer) Est GFR (Non-Af Amer) BUN/Creatinine Ratio Glucose POC Glucose 96 104 H Lactate Calcium Magnesium Total Bilirubin Direct Bilirubin AST ALT Alkaline Phosphatase Ammonia Total Creatine Kinase 52 Troponin I High Sens Total Protein Albumin Globulin Albumin/Globulin Ratio Lipase 57 Procalcitonin Urine Color Urine Appearance Urine pH Ur Specific Paterson Urine Protein Urine Glucose (UA) Urine Ketones Urine Blood Urine Nitrite Urine Bilirubin Urine Urobilinogen Ur Leukocyte Esterase Urine WBC (Auto) Urine RBC (Auto) U Hyaline Cast (Auto) U Epithel Cells (Auto) Urine Bacteria (Auto) 02/03/24 02/03/24 02/03/24 00:10 04:02 05:44 WBC 7.45 RBC 4.15 L Hgb 11.1 L Hct 36.0 L MCV 86.7 MCH 26.7 MCHC 30.8 L RDW Std Deviation 44.9 RDW Coeff of Bailey 14.2 Plt Count 68 L MPV 9.8 Immature Gran % (Auto) 0.4 Neut % (Auto) 80.2 Lymph % (Auto) 11.3 Harrison % (Auto) 5.0 Eos % (Auto) 2.4 Baso % (Auto) 0.7 Neut # (Auto) 5.98 Lymph # (Auto) 0.84 L Harrison # (Auto) 0.37 Eos # (Auto) 0.18 Baso # (Auto) 0.05 Immature Gran # (Auto) 0.03 PT INR APTT PTT Ratio Sodium 141 Potassium 5.0 Chloride 106 Carbon Dioxide 29 Anion Gap 6 BUN 22 Creatinine 1.46 H D Est Cr Clr Drug Dosing 56.2 Est GFR ( Amer) 47.8 Est GFR (Non-Af Amer) 41.2 BUN/Creatinine Ratio 15.1 Glucose 152 H POC Glucose 119 H 136 H Lactate Calcium 8.3 L Magnesium Total Bilirubin 0.7 Direct Bilirubin 0.2 AST 23 ALT 8 Alkaline Phosphatase 115 H Ammonia Total Creatine Kinase Troponin I High Sens Total Protein 6.7 Albumin 3.6 Globulin Albumin/Globulin Ratio Lipase 68 Procalcitonin Urine Color Urine Appearance Urine pH Ur Specific Paterson Urine Protein Urine Glucose (UA) Urine Ketones Urine Blood Urine Nitrite Urine Bilirubin Urine Urobilinogen Ur Leukocyte Esterase Urine WBC (Auto) Urine RBC (Auto) U Hyaline Cast (Auto) U Epithel Cells (Auto) Urine Bacteria (Auto) 02/03/24 02/03/24 07:46 11:27 WBC RBC Hgb Hct MCV MCH MCHC RDW Std Deviation RDW Coeff of Bailey Plt Count MPV Immature Gran % (Auto) Neut % (Auto) Lymph % (Auto) Harrison % (Auto) Eos % (Auto) Baso % (Auto) Neut # (Auto) Lymph # (Auto) Harrison # (Auto) Eos # (Auto) Baso # (Auto) Immature Gran # (Auto) PT INR APTT PTT Ratio Sodium Potassium Chloride Carbon Dioxide Anion Gap BUN Creatinine Est Cr Clr Drug Dosing Est GFR ( Amer) Est GFR (Non-Af Amer) BUN/Creatinine Ratio Glucose POC Glucose 150 H 161 H Lactate Calcium Magnesium Total Bilirubin Direct Bilirubin AST ALT Alkaline Phosphatase Ammonia Total Creatine Kinase Troponin I High Sens Total Protein Albumin Globulin Albumin/Globulin Ratio Lipase Procalcitonin Urine Color Urine Appearance Urine pH Ur Specific Paterson Urine Protein Urine Glucose (UA) Urine Ketones Urine Blood Urine Nitrite Urine Bilirubin Urine Urobilinogen Ur Leukocyte Esterase Urine WBC (Auto) Urine RBC (Auto) U Hyaline Cast (Auto) U Epithel Cells (Auto) Urine Bacteria (Auto) Coding Level of Care Code 80756 IN/OBS CONSULT LVL 4,60M Diagnoses Abdominal pain R10.9
[2024-02-03] MEDS: METOCLOPRAMIDE HCL 5 MG TABLET PO SCH (12:01)
[2024-02-03] MEDS: hydrOXYzine HCl 25 MG TAB PO PRN (12:59)
--- NOTE | 2024-02-03 14:41 | Pharmacy Report ---
Pharmacy Glycemic Short Note 2 - Date of Service February 03, 2024 - Glycemic Short BSG Results (Last 24 hours): 02/02/24 02/02/24 02/02/24 17:52 18:14 20:22 Glucose POC Glucose 94 96 104 H 02/03/24 02/03/24 02/03/24 00:10 04:02 05:44 Glucose 152 H POC Glucose 119 H 136 H 02/03/24 02/03/24 07:46 11:27 Glucose POC Glucose 150 H 161 H OUTPATIENT ANTIDIABETIC REGIMEN: * Jardiance 10 mg once daily * Ozempic 2 mg once weekly * Metformin 1000 mg once daily * Novolin R insulin pump ~ 81 total units daily (per [facility] notes on 11/13/23) * 12 AM - 8 AM : 2.3 u/hr * 8 AM - 1 PM : 4.0 u/hr * 1 PM - 3 PM : 3.7 u/hr * 3 PM - 12 AM : 4.0 u/hr * A1C: 6.3% (11/13/2023) ASSESSMENT: 02/02 * Minimal PO intake yesterday. PO intake increased significantly today. * AM fasting BSG trending up after significant reduction yesterday. Will likely increase today, but still will be significantly below the reported outpatient basal provided by the patient's home pump. Will defer to evening pharmacist for dose selection, after assessment of the dinner BSG. * Novolog will also be slightly looser than outpatient regimen for now, but it worked well for the CHO consumed at breakfast today 02/01 * Carmen is a 53 YO F admitted for hypotension and with a history of T2DM. Pharmacy has been consulted to assist with glycemic management while inpatient. * Fasting BSG this AM was low. Lantus was initiated at 25 units this morning with an evening scale due to low BSG this AM and at lunch. * Novolog was initiated at a weight based stress of 3, but loosened due to low BSG during this AM. * Patient has been changed from home Novolin R pump to subcutaneous basal/bolus dosing during inpatient stay. PLAN FOR INPATIENT GLYCEMIC CONTROL: * Hold outpatient oral diabetes medications * Basal insulin * Lantus x1 at dinner tonight. Dose dependent on dinner BSG * Bolus insulin * NovoLog per scale ACHS or Q6hrs while NPO * Goal Range: Low 110 mg/dL - High 140 mg/dL * Correction Factor: 20 mg/dL/unit * Nutritional / Prandial insulin per carb ratio of 1 unit per 6 grams CHO consumed
[2024-02-03] MEDS: LANTUS PER UNIT CHARGE SC SCH (18:10)
[2024-02-04] MEDS: INSULIN ASPART PER UNIT CHARGE SC SCH (00:30)
[2024-02-04 04:57] VITALS: RESP 18
[2024-02-04 07:20] LABS: Basophils # (auto) 0.03 K/uL (0.00-0.20); Basophils % (auto) 0.7 %; Eosinophils # (auto) 0.22 K/uL (0.00-0.50); Eosinophils % (auto) 4.9 %; Hematocrit (blood only) 33.3 % (37.0-47.0); Hemoglobin 10.6 g/dl (12.0-16.0); Immature Granulocytes # (auto) 0.03 K/uL (0.01-0.20); Immature Granulocytes % (auto) 0.7 %; Lymphocytes # (auto) 1.35 K/uL (1.20-3.40); Lymphocytes % (auto) 29.8 %; Mean Corpuscular Hemoglobin 26.8 pg (25.0-34.0); Mean Corpuscular Hgb Conc 31.8 g/dL (32.0-36.0); Mean Corpuscular Volume 84.1 fL (80.0-100.0); Monocytes # (auto) 0.37 K/uL (0.11-0.59); Monocytes % (auto) 8.2 %; Neutrophils # (auto) 2.53 K/uL (1.40-6.50); Neutrophils % (auto) 55.7 %; Platelet Count 54 K/uL (130-400); RDW Coefficient of Variation 13.8 % (11.5-14.5); RDW Standard Deviation 42.5 fL (36.4-46.3); Red Blood Count 3.96 M/uL (4.20-5.40); White Blood Count 4.53 K/ul (4.8-10.8)
[2024-02-04 07:47] VITALS: TEMP 97.9
[2024-02-04 07:52] LABS: BUN Creatinine Ratio 16.7 (10-20); Calcium 8.5 mg/dl (8.6-10.3); Creatinine Clr Calc Pharmacy 56.8 ml/min; Est GFR (African American) 51.2 ml/min; Est GFR (Non-African American) 44.2 ml/min; Potassium 4.3 mmol/L (3.5-5.1)
--- NOTE | 2024-02-04 09:48 | Discharge Summary ---
Date of Service February 04, 2024 Admission HPI Per Admitting Provider History obtained from patient and records. Medical history significant for seizure disorder, hypertension, hyperlipidemia, past hx of CVA, chronic left hemiparesis as per records, NAFLD cirrhosis, liver malignancy, DM2 on insulin pump,CRI (baseline creatinine 1.4-1.5), chronic pain on Butrans patch, chronic back pain status post surgery, mood disorder, chronic anemia (baseline hemoglobin of 11), chronic thrombocytopenia, DONNA on CPAP. Last confinement August 2023 for GI bleed. Patient has had achy upper abdominal pain symptoms for few months now. Attributes pain to pancreatitis. No chest pain, no SOB. Some nausea without emesis. Good BM. Fall from ladder 2 weeks ago with transient back pain and headache complaints. Seen at PCPs office last week. X-rays recommended by provider. Worsening abdominal pain today. [place] like she was going to pass out. BP noted to be low at home at 80s. Medical History as above Surgical History : Hysteroscopy, vascular procedure, BTL, back surgery/spinal stimulator placement Family History : COPD, diabetes, liver disease, heart disease Personal/Social history : Non-smoker, no EtOH intake, disabled Admission Exam Per Admitting Provider GENERAL: Lethargic, morbidly obese, no respiratory distress SKIN: Pallor, warm HEENT: Bespectacled, pale palpebral conjunctivae, no ptosis, dry buccal mucosa, nasal cannula in place NECK : Supple, short neck, no tenderness CHEST : Decreased breath sounds, no tenderness HEART : RRR, no obvious murmurs ABDOMEN: Chronic distention, epigastric tenderness EXTREMITIES :LLE swelling, no LE tenderness, no other conspicuous deformities noted NEUROLOGIC : Coherent, no facial asymmetry, gait and stance not assessed Principal Diagnosis Transient hypotension Acute kidney injury Discharge Exam GENERAL: Alert oriented x 3; not in distress. SKIN: Pallor, warm HEENT: Bespectacled, pale palpebral conjunctivae, no ptosis, dry buccal mucosa, nasal cannula in place NECK : Supple, short neck, no tenderness CHEST : Decreased breath sounds, no tenderness HEART : RRR, no obvious murmurs ABDOMEN: slightly distended, non-tender EXTREMITIES :, no LE tenderness, no other conspicuous deformities noted NEUROLOGIC : Coherent, no facial asymmetry, gait and stance not assessed Discharge Data Allergies Allergy/AdvReac Type Severity Reaction Status Date / Time naproxen Allergy Unknown BLEEDING Verified 08/11/23 20:32 Consultations 02/02/24 03:11 ED Decision to Admit Stat 02/02/24 18:33 Consult Gastroenterology Routine Ordered Studies 02/01/24 23:32 CT abd pelvis wo con Stat CT head/brain wo con Stat 02/02/24 02:40 US venous doppler LE LT Stat Hospital Course (1) Hypotension: (2) EVA (acute kidney injury): Plan Patient presented with worsening abdominal pain and presyncope Her blood pressure was noted to be low at SBP of 80s at home. Recently, her blood pressure has been on lower range as outpatient leading to decrease in her diuretic dose by her mica plate layer. CT abdomen and pelvis on admission showed cirrhosis with mild nonspecific splenomegaly. Her creatinine was found to be 2.3 on admission Patient's antihypertensives were stopped during the hospitalization. She was given IV fluids with improvement in her creatinine. Her blood pressure also normalized. At discharge, patient's atenolol was decreased to 25 mg twice a d ay, Lasix frequency was decreased to every other day. Spironolactone and losartan were stopped. Patient was recommended to monitor her blood pressure at home and follow-up with her primary care doctor for adjustment Please note the above document was generated using voice recognition software. It may contain grammatical, syntax or spelling errors. Any formal questions or concerns about the content, text or information contained within the body of this dictation should be directly addressed to the provider for clarification Total Time Total Time Spent Total Time Spent (In Minutes): 35 Total Time Includes: Examination of the Patient, Discharge Planning, Medication Reconciliation, Communication With Other Providers and Other Discharge Plan Discharge Items Patient Disposition: Home - Self-Care Reason For Visit: TRANSIENT HYPOTENSION, ARF Discharge Diagnosis: Transient hypotension Acute kidney injury Activity: Resume your previous activity Non-emergency contact: Primary Care Provider Call non-emergency contact if: you have any medication questions and your symptoms worsen Follow-up/Referrals: Scott Weldon MD [Primary Care Provider] - (Date & Time 02/12/2024 10:40 AM Provider Scott Weldon MD Department Family Practice [facility] ) Diet: Regular Addtl Attending Provider Instructions: You were admitted to the hospital due to low blood pressure. The likely cause for the low blood pressure is multiple antihypertensive medication. Following changes have been made to your medication regimen: 1) Atenolol dose has been decreased to 25 mg twice a day 2) Lasix dosage decreased to 40 mg every other day. Potassium chloride 20 mg every day 3) stop losartan and spironolactone. Continue to measure blood pressure at home. Follow-up with your primary care doctor with the log. Dose of the medication may need to be titrated based on the response. An appointment with your primary care doctor will be made for you. Pending Studies at Discharge: No Stand-Alone Forms: My [facility], Smoking Cessation Medications and DC Order Prescriptions: New atenolol 25 mg tablet 25 mg PO BID Qty: 60 0RF Continued atorvastatin 40 mg tablet 40 mg PO DAILYBL ondansetron 8 mg tablet,disintegrating 8 mg translingual Q8 PRN (Reason: Nausea) metoclopramide HCl 5 mg tablet 5 mg PO AC PRN (Reason: Nausea) trazodone 100 mg tablet 100 - 200 mg PO HS dicyclomine 20 mg tablet 20 mg PO HS meclizine 25 mg Tablet 25 mg PO TID PRN (Reason: .dizzy) baclofen 10 mg tablet 10 mg PO TID metformin 1,000 mg tablet 1,000 mg PO DAILY Novolin R Regular U100 Insulin 100 unit/mL solution 0 unit continuous subcutaneous infusion DIRECTED hydroxyzine HCl 25 mg tablet 25 mg PO TID PRN (Reason: Anxiety) albuterol sulfate 90 mcg/actuation HFA aerosol inhaler 2 puff INHALATION Q6 PRN (Reason: Shortness Of Breath Or Wheezing) loratadine 10 mg tablet 10 mg PO QAM escitalopram oxalate 20 mg tablet 20 mg PO DAILY eszopiclone 2 mg tablet 2 mg PO HS pregabalin 100 mg capsule 100 mg PO TID buprenorphine 5 mcg/hour patch weekly 1 patch topical WK Rx Instructions: sun naloxone 4 mg/actuation spray,non-aerosol 4 mg INTRANASAL DIRECTED PRN (Reason: opiod od) magnesium oxide 400 mg magnesium Tablet 400 mg PO DAILY Ozempic 2 mg/dose (8 mg/3 mL) Pen Injector 2 mg SUBCUT .WEEKLY Rx Instructions: Sun pantoprazole 40 mg tablet,delayed release (DR/EC) 40 mg PO DAILY Jardiance 10 mg PO DAILY Changed furosemide 40 mg tablet 40 mg PO Q OTHER DAY Qty: 0 0RF potassium chloride 10 mEq tablet extended release 20 meq PO DAILY Qty: 0 0RF Rx Instructions: Take with food Discontinued atenolol 100 mg tablet 100 mg PO BID losartan 25 mg tablet 25 mg PO HS spironolactone 50 mg tablet 50 mg PO QAM metronidazole 500 mg tablet 500 mg PO TID Qty: 24 0RF cefdinir 300 mg capsule 300 mg PO BID Qty: 16 0RF Discharge Orders: Discharge Order (Routine); Ordered 02/04/24 Ordered By: Ruben Hayden Admission Data Admit Date/Time: 02/02/24 02:48 Attending Provider: Ruben Hayden Admit Provider: Jaun Latham Primary Care Provider: Scott Weldon Other Providers: Jaun Latham; Juan J French I Other Interventions: Discharge Summary Assessment (RN) Last Done: 02/04/24 12:13
--- NOTE | 2024-02-04 10:13 | Gastroenterology Progress Note ---
Date of Service February 04, 2024 Assessment & Plan (1) Abdominal pain: Plan: Patient is a 53 year old female admitted with low blood pressure. GI consulted for for abdominal pain, nausea, and history of cirrhosis. She reports a history of gastroparesis and says that reglan has helped as an outpatient but she does not use this regularly. I suspect that her symptoms likely relate to gastroparesis. she is eating better since the addition of reglan. - continue with reglan 5mg ACHS. she is aware of side effects to watch for. - continue with promethazine as needed for nausea/vomiting. - continue with protonix 40mg IV bid. - she tells me she is set up for outpatient endoscopy in the coming weeks with her regular GI at [facility]. she should keep this appointment and follow up with hepatology at [facility] on discharge. - we discussed adding miralax, linzess, or lactulose for constipation but she declines at this time. she just wishes to see how she does with stool softeners. Admission and Anticipated Discharge Date Admission Date: February 02, 2024 Supervising Physician Co-Signing Physician Notes I saw and examined this patient with our nurse practitioner and agree with her assessment and plan. Tolerating food today. Tolerating metoclopramide as well. Recommend continuing the metoclopramide as an outpatient she will follow-up with [facility] GI as an outpatient Subjective Patient tells me that she has had ongoing body pain. she also feels bloated today. No bowel movements since Thursday. she refuses miralax. she is only using stool softeners. she is eating better today. tolerated her breakfast. Review of Systems Review of Systems: All systems reviewed & are unremarkable except as noted in HPI & below Physical Exam Constitutional: WD/WN, vitals as above Respiratory: normal respiratory effort, lungs clear to auscultation Cardiovascular: Rate/Rhythm: regular rate and regular rhythm Gastrointestinal (Abdomen): mild diffuse abdominal tenderness, no guarding, soft, normal bowel sounds. Psychiatric: Orientation: alert and oriented x 3 Affect: euthymic affect Results & Data Results & Data Vital Signs (Past 12 Hours) Vital Signs Temp Pulse Pulse Pulse Resp BP BP 02/04/24 09:09 02/04/24 07:47 97.9 F 69 18 135/79 02/04/24 07:34 72 02/04/24 04:56 97.7 F 70 18 129/76 02/04/24 00:30 97.9 F 71 16 108/61 Pulse Ox O2 Del Method 02/04/24 09:09 Room Air 02/04/24 07:47 94 Room Air 02/04/24 07:34 02/04/24 04:56 96 Room Air 02/04/24 00:30 94 Room Air Coding Level of Care Code 28365 SUB INP/OBS CARE 07/02MIN Diagnoses Abdominal pain R10.9
[2024-02-04 11:33] VITALS: BP 120/75; O2SAT 95
[2024-02-04 12:14] VITALS: PULSE 70
[2024-02-04] MEDS ORDERED: HEPARIN 100 UNIT/ML 5ML FLUSH FLUSH STA (12:22)
[2024-02-07] MEDS ORDERED: BUPRENORPHINE 5 MCG/HR TDSY TD SCH (09:00)
== END 2024-02-04 15:21 | disposition home or self-care (01) | DRG 315 ==
LOC: ED 22:06 → EDINP 02-02 02:48 → SUATTDRO 02-02 02:48 → 2W 02-02 04:52

== ENCOUNTER 2024-05-10 17:38 | Inpatient (IN) ==
--- NOTE | 2024-05-10 18:00 | Emergency Department Note ---
Impression & Plan Falls, EVA (acute kidney injury), Dizziness, Drowsiness, Polypharmacy ED Provider Note Provider: Renaldo Silva MD CHIEF COMPLAINT: Low blood pressure, dizzy HISTORY OF PRESENT ILLNESS: Patient is a 53-year-old female past medical history significant for type 2 diabetes, seizure, cirrhosis secondary to Pear[place], chronic back pain with stimulator, and chronic kidney disease among others presenting via ambulance from nephrology office. Patient states for some time she has been unwell with particular over the past week or so. Had been feeling somewhat dizzy and lightheaded and found to be hypotensive 85 systolic in the nephrology office. Given 400 mL of normal saline and some Zofran for EMS and brought here. Patient denies syncope. States over the last week or 2 she has had a fall onto her back. Patient reports chronic back pain fairly well-controlled with her stimulator and Butrans patch. Denies significant new chest pain or trouble breathing. Endorses generalized fatigue and weakness. Some chronic numbness reported unchanged. Reviewed nephrology note from today. Patient found to be hypotensive and not feeling well and somewhat sluggish. Pilot Captain questioned if she was drowsy from polypharmacy. PAST MEDICAL HISTORY: As noted above MEDICATIONS: Reviewed home medications SOCIAL HISTORY: PHYSICAL EXAM: GENERAL: alert and oriented in no acute distress on stretcher Head: normocephalic and atraumatic EYES: No injection, discharge or icterus. PERRL, EOMI. NECK: Trachea midline. ENT: Mucous membranes pink and moist. LUNGS: Airway patent. No retractions. Breath sounds clear HEART: Regular rate and rhythm. No chest wall tenderness ABDOMEN: Soft and non-tender, without guarding or rebound. SKIN: Acyanotic, warm, dry, without rashes EXTREMITIES: Without swelling, tenderness or deformity NEUROLOGICAL: No focal deficits. No aphasia. No facial droop or slurred speech. Normal strength and tone in the extremities. Sensation to gross touch normal. EK bpm appears to be a sinus rhythm with significant artifact. No acute ST segment elevation or depression obvious with a QTc of 436. CONTINUOUS CARDIAC MONITORING: was ordered and showed a heart rate of 70s-80s bpm in normal sinus rhythm GCS 15. Patient's laboratory studies and imaging reviewed. Differential includes traumatic injury infection, dehydration, metabolic abnormality, hypo/hyperglycemia, electrolyte disturbance, anemia, hypoxia, cardiac sources, intracerebral event, toxicologic, neurologic, as well as other pathologies. IMPRESSION/MEDICAL DECISION MAKING: Patient with complex history. Similar dizziness and weakness 2 February. Patient without the best appetite by report and some worsening of her chronic back pain. Did have a recent fall by her report. As such we will obtain briggs scans without contrast given evidence of kidney dysfunction. Hemoglobin actually somewhat better than previous at 11.1. No leukocytosis today. No severe electrolyte abnormality. No evidence of acute hepatitis or pancreatitis. Patient requesting something for pain and given a small amount of additional fentanyl. Received some IV fluid and round in to be careful avoid fluid overload as her blood pressure is improved here in the low 100 systolic we will continue to monitor closely. Creatinine of 2.5 compared to most recent outpatient labs shows with creatinine 1.3 in March. Likely with worsened renal function some of her medications are accumulating. Negative respiratory viral panel. Procalcitonin not significantly elevated. CT reports of the head, cervical spine, chest abdomen pelvis per radiology Again has received a gentle fluid bolus of 400 mL normal saline from EMS and additional 250 here in the ER. Will bring in for further care and treatment for hopeful improvement of her renal function and improvement of her dizziness/fatigue symptoms. Patient on reassessment resting and is requiring little bit of oxygen after the fentanyl. She is asking for more pain medicine but given her drowsiness discussed with her cannot do this at this time. Discussed doing for further care of her symptoms and improvement of her renal function. Hospitalist contacted. DIAGNOSIS: EVA, falls, dizziness/weakness/drowsiness DISPOSITION: Hospitalist will evaluate Patient was agreeable with this plan. Past Med/Surg History Problem List (Updated 02/02/24 @ 00:25 by Falguni Landers DO) Abdominal pain (Acute) EVA (acute kidney injury) (Acute) Hypotension (Acute) Hematemesis (Acute) Bright red rectal bleeding (Acute) Abdominal pain (Acute) Acute hypoxemic respiratory failure Hypoxia (Acute) Pneumonia due to COVID-19 virus (Acute) Hypophosphatemia (Acute) Seizure (Acute) Right flank pain (Acute) History of liver cancer (Acute) DVT prophylaxis Seizure (Acute) UTI (urinary tract infection) (Acute) Hypomagnesemia (Acute) Dehydration (Acute) Hyperglycemia (Acute) Rene's paralysis (Acute) Hepatocellular carcinoma Epileptic seizure (Acute) Anemia (Acute) Thrombocytopenia T2DM (type 2 diabetes mellitus) (Chronic) GERD (gastroesophageal reflux disease) (Chronic) Bipolar disorder (Chronic) Chronic pain (Chronic) HTN (hypertension) (Chronic) HLD (hyperlipidemia) (Chronic) Depression (Chronic) DONNA (obstructive sleep apnea) (Chronic) Back pain (Chronic) Liver cirrhosis secondary to PEARCE (Acute) Medical History (Updated 02/02/24 @ 00:25 by Falguni Landers DO) Stroke Seizure Vertigo Liver cancer H/O TIA (transient ischemic attack) and stroke Hypertension Surgical History History of tubal ligation History of hysterectomy Family History Other No significant family history Social History Smoking Status: Never smoker Tobacco Type: Cigarettes Second Hand Exposure: No; Do You Dip or Chew Tobacco: No; Hx Alcohol Use: No Hx Substance Use: No Preferred Language: Serbian Communication Ability: Effective Cooler Operator Required: No Beliefs That Will Affect Care: None Current Living Situation: Spouse Current Living Situation Comment: and a son Feels Safe at Home: Yes Assistive Devices: Cane and CPAP Allergies Allergies Allergy/AdvReac Type Severity Reaction Status Date / Time naproxen Allergy Unknown BLEEDING Verified 08/11/23 20:32 Home Meds Home Medications Medication Instructions Recorded Confirmed albuterol sulfate 90 mcg/actuation 2 puff inhalation Q6 PRN Shortness 08/11/23 05/10/24 aerosol inhaler Of Breath Or Wheezing atorvastatin 40 mg tablet 40 mg PO DAILYBL 08/11/23 05/10/24 baclofen 10 mg tablet 10 mg PO TID 08/11/23 05/10/24 buprenorphine 5 mcg/hour weekly 1 patch topical WK 08/11/23 05/10/24 transdermal patch dicyclomine 20 mg tablet 20 mg PO HS 08/11/23 05/10/24 escitalopram oxalate 20 mg tablet 20 mg PO DAILY 08/11/23 05/10/24 eszopiclone 2 mg tablet 2 mg PO HS 08/11/23 05/10/24 hydroxyzine HCl 25 mg tablet 25 mg PO TID PRN Anxiety 08/11/23 05/10/24 insulin regular human 100 unit/mL 0 unit continuous subcutaneous 08/11/23 05/10/24 injection solution (Novolin R infusion DIRECTED Regular U-100 Insulin) loratadine 10 mg tablet 10 mg PO QAM 08/11/23 05/10/24 magnesium oxide 400 mg PO DAILY 08/11/23 05/10/24 meclizine 25 mg tablet 25 mg PO TID PRN .dizzy 08/11/23 05/10/24 metformin 1,000 mg tablet 1,000 mg PO DAILY 08/11/23 05/10/24 metoclopramide HCl 5 mg tablet 5 mg PO AC PRN Nausea 08/11/23 05/10/24 naloxone 4 mg/actuation nasal spray 4 mg intranasal DIRECTED PRN 08/11/23 05/10/24 opiod od ondansetron 8 mg disintegrating 8 mg translingual Q8 PRN Nausea 08/11/23 05/10/24 tablet pregabalin 100 mg capsule 100 mg PO TID 08/11/23 05/10/24 trazodone 100 mg tablet 100 - 200 mg PO HS 08/11/23 05/10/24 pantoprazole 40 mg tablet,delayed 40 mg PO DAILY 02/02/24 05/10/24 release Previous Rx's Medication Instructions Recorded atenolol 25 mg tablet 25 mg PO BID #60 tabs 02/04/24 furosemide 40 mg tablet 40 mg PO Q OTHER DAY #0 tabs 02/04/24 potassium chloride 10 mEq 20 meq (2 x 10 mEq) PO DAILY #0 02/04/24 tablet,extended release tabs Results & Data (ED) Vital Signs Vital Signs - 24 hr 05/10/24 17:30 05/10/24 17:30 05/10/24 17:30 Temperature 37 C Temperature Source Oral Pulse Rate 82 Respiratory Rate 18 Respiratory Effort / Characteristics Non-Labored Spontaneous Respiratory Depth Normal Respiratory Pattern Regular Blood Pressure 105/70 Blood Pressure Mean 81 Pulse Oximetry 94 94 94 Oxygen Delivery Method Room Air Room Air Room Air Oxygen Flow Rate Sepsis Recent Fever Within 48 Hours No Sepsis New/Unexplained Change in Mental Status N/A Sepsis Action Taken by Nursing No Action Required Oxygen Flow Rate - Titration Pulse Oximetry Post Tiitration 05/10/24 17:57 05/10/24 18:57 05/10/24 19:00 Temperature Temperature Source Pulse Rate 84 81 Respiratory Rate 14 Respiratory Effort / Characteristics Respiratory Depth Respiratory Pattern Blood Pressure 100/74 Blood Pressure Mean 82 Pulse Oximetry 91 96 Oxygen Delivery Method Room Air Room Air Oxygen Flow Rate Sepsis Recent Fever Within 48 Hours Sepsis New/Unexplained Change in Mental Status Sepsis Action Taken by Nursing Oxygen Flow Rate - Titration Pulse Oximetry Post Tiitration 05/10/24 20:15 05/10/24 20:16 05/10/24 20:36 Temperature Temperature Source Pulse Rate 79 78 78 Respiratory Rate 14 14 12 Respiratory Effort / Characteristics Respiratory Depth Respiratory Pattern Blood Pressure 108/71 117/70 Blood Pressure Mean 78 78 Pulse Oximetry 92 91 92 Oxygen Delivery Method Room Air Room Air Room Air Oxygen Flow Rate Sepsis Recent Fever Within 48 Hours Sepsis New/Unexplained Change in Mental Status Sepsis Action Taken by Nursing Oxygen Flow Rate - Titration Pulse Oximetry Post Tiitration 05/10/24 20:53 05/10/24 21:00 05/10/24 21:30 Temperature Temperature Source Pulse Rate 78 78 Respiratory Rate 18 12 Respiratory Effort / Characteristics Respiratory Depth Respiratory Pattern Blood Pressure 111/71 101/69 Blood Pressure Mean 84 79 Pulse Oximetry 87 L 97 96 Oxygen Delivery Method Room Air Nasal Cannula Room Air Nasal Cannula Oxygen Flow Rate 2 Sepsis Recent Fever Within 48 Hours Sepsis New/Unexplained Change in Mental Status Sepsis Action Taken by Nursing Oxygen Flow Rate - Titration 2 Pulse Oximetry Post Tiitration 98 05/10/24 21:46 05/10/24 22:00 Temperature Temperature Source Pulse Rate 77 75 Respiratory Rate 12 Respiratory Effort / Characteristics Respiratory Depth Respiratory Pattern Blood Pressure 125/91 Blood Pressure Mean 102 Pulse Oximetry 98 Oxygen Delivery Method Nasal Cannula Oxygen Flow Rate 2 Sepsis Recent Fever Within 48 Hours Sepsis New/Unexplained Change in Mental Status Sepsis Action Taken by Nursing Oxygen Flow Rate - Titration Pulse Oximetry Post Tiitration Laboratory Data 05/10/24 17:54 05/10/24 17:54 Lab Results 05/10/24 05/10/24 05/10/24 Range/Units 17:54 18:35 19:32 WBC 6.37 (4.8-10.8) K/ul RBC 4.15 L (4.20-5.40) M/uL Hgb 11.1 L (12.0-16.0) g/dl Hct 34.4 L (37.0-47.0) % MCV 82.9 (80.0-100.0) fL MCH 26.7 (25.0-34.0) pg MCHC 32.3 (32.0-36.0) g/dL RDW Std Deviation 49.4 H (36.4-46.3) fL RDW Coeff of Bailey 16.4 H (11.5-14.5) % Plt Count 73 L (130-400) K/uL MPV 10.3 (9.4-12.4) fL Immature Gran % (Auto) 0.3 % Neut % (Auto) 65.0 % Lymph % (Auto) 20.1 % [facility] % (Auto) 9.9 % Eos % (Auto) 3.9 % Baso % (Auto) 0.8 % Neut # (Auto) 4.14 (1.40-6.50) K/uL Lymph # (Auto) 1.28 (1.20-3.40) K/uL [facility] # (Auto) 0.63 H (0.11-0.59) K/uL Eos # (Auto) 0.25 (0.00-0.50) K/uL Baso # (Auto) 0.05 (0.00-0.20) K/uL Immature Gran # (Auto) 0.02 (0.01-0.20) K/uL PT Cancelled 12.0 INR Cancelled 1.1 APTT Cancelled 24 PTT Ratio Cancelled 0.9 Sodium 143 (136-145) mmol/L Potassium 4.0 (3.5-5.1) mmol/L Chloride 105 (98-107) mmol/L Carbon Dioxide 30 (21-32) mmol/L Anion Gap 8 (3-11) BUN 28 H (6-23) mg/dl Creatinine 2.57 H (0.6-1.2) mg/dl Est Cr Clr Drug Dosing 31.2 ml/min eGFR 21.97 BUN/Creatinine Ratio 10.9 (10-20) Glucose 117 H (70-99(Fasting)) mg/dl Calcium 8.4 L (8.6-10.3) mg/dl Magnesium 1.6 L (1.7-2.4) mg/dl Total Bilirubin 0.6 (0.2-1.0) mg/dl AST 36 (13-39) U/L ALT 16 (7-52) U/L Alkaline Phosphatase 147 H (34-104) U/L Total Creatine Kinase 55 (26-192) U/L Troponin I High Sens 2.5 (0-14) pg/ml Total Protein 6.7 (6.0-8.3) gm/dl Albumin 3.6 (3.4-5.0) gm/dl Globulin 3.1 (2.5-4.0) gm/dl Albumin/Globulin Ratio 1.2 (0.9-2) Lipase 70 (11-82) U/L Procalcitonin 0.13 (0-0.5) ng/ml Adenovirus (PCR) Not Detected (NotDetected) B. pertussis DNA (PCR) Not Detected (NotDetected) B.parapertussis DNA PCR Not Detected (NotDetected) C. pneumoniae DNA (PCR) Not Detected (NotDetected) Coronavirus OC43 (PCR) Not Detected (NotDetected) Coronavirus HKU1 (PCR) Not Detected (NotDetected) Coronavirus 229E (PCR) Not Detected (NotDetected) SARS-CoV-2 (PCR) Not Detected (NotDetected) Coronavirus NL63 (PCR) Not Detected (NotDetected) Human Metapneumovir PCR Not Detected (NotDetected) Influenza Type A (PCR) Not Detected (NotDetected) Influenza Type B (PCR) Not Detected (NotDetected) M. pneumoniae (PCR) Not Detected (NotDetected) Parainfluenza 1 (PCR) Not Detected (NotDetected) Parainfluenza 2 (PCR) Not Detected (NotDetected) Parainfluenza 3 (PCR) Not Detected (NotDetected) Parainfluenza 4 (PCR) Not Detected (NotDetected) RSV (PCR) Not Detected (NotDetected) Entero/Rhino (PCR) Not Detected (NotDetected) Administered Medications Magnesium Sulfate/Dextrose (Magnesium Sulfate / D5w) 1 gm in 100 mls @ 50 mls/hr IV ONE ONE Stop: 05/11/24 00:54 Last Admin: 05/10/24 23:43 Dose: 50 mls/hr Documented By: KMB Discontinued Medications Fentanyl Citrate (Fentanyl Citrate Pf 100 Mcg/2 Ml Vial) 50 mcg IV NOW STA Stop: 05/10/24 18:43 Last Admin: 05/10/24 19:35 Dose: 50 mcg Documented By: GIOVANNI Sodium Chloride (Nss) 250 mls @ 999 mls/hr IV .Q16M ONE Stop: 05/10/24 20:00 Last Infusion: 05/10/24 20:53 Dose: Infused Documented By: Admin: 05/10/24 20:11 Dose: 999 mls/hr Documented By: BREA Imaging Data Radiologist's Impression: Chest X-Ray 05/10/24 17:55 EXAM: X-ray chest 1 view not portable CLINICAL HISTORY: Cough PRIORS: 02/01/2024, 03/07/2020 TECHNIQUE: Upright AP view chest FINDINGS: Overlying certified medical transcriptionist is known projecting over the chest. Allowing for this, mildly diminished lung volumes noted. Cardiac silhouette moderately enlarged, unchanged. No airspace consolidation, effusion or congestive changes. No pneumothorax. Trachea is patent. Osseous structures demonstrate no acute abnormality. No radiopaque foreign body. IMPRESSION: Moderate enlargement of the cardiac silhouette, unchanged. Electronically signed by Tere Triana 05-10-2024 6:33 PM Abdomen/Pelvis CT 05/10/24 18:26 Exam(s): CT ABDOMEN + PELVIS Without Contrast EXAM: CT Abdomen and Pelvis Without Intravenous Contrast CLINICAL HISTORY: Reason for exam: falls, back/flank pain. TECHNIQUE: Axial computed tomography images of the abdomen and pelvis without intravenous contrast. CTDI is 24.07 mGy and DLP is 1679.95 mGy-cm. Automated exposure control was utilized for the study. A dose lowering technique was utilized adhering to the principles of ALARA. COMPARISON: 02/01/2024. FINDINGS: The exam is limited due to lack of contrast material Lung bases: No consolidation. ABDOMEN: Liver: The liver is enlarged and lobulated. Gallbladder and bile ducts: No calcified stones. No ductal dilation. Pancreas: The visualized portions of the pancreas, on this noncontrast study, are grossly unremarkable. Spleen: The spleen is moderately enlarged.. Adrenals: No mass. Kidneys and ureters: No obstructing stones. No hydronephrosis. Stomach and bowel: There are 2 high-density structures noted within the stomach. There is air and stool noted in the colon.. PELVIS: Appendix: Unremarkable CT scan appearance noted the appendix.. Bladder: The urinary bladder is distended. No bladder calculi are seen. . Reproductive: Unremarkable as visualized. ABDOMEN and PELVIS: Intraperitoneal space: No free air. No significant fluid collection. Bones/joints: There are degenerative changes in the spine. There is a neurostimulator device with its leads extending into the spinal canal.. Soft tissues: Unremarkable. Vasculature: No abdominal aortic aneurysm. Lymph nodes: No enlarged lymph nodes. IMPRESSION: Limited exam. No evidence of renal calculi or hydronephrosis. Liver is enlarged and lobulated suggesting cirrhotic changes. There is moderate splenomegaly. There are 2 high-density structures within the stomach which may represent ingested foreign bodies. Electronically signed by: Owen Liao MD 05/10/24 23:[address] 05/10/24 18:26 Exam(s): CT C SPINE EXAM: CT Cervical Spine Without Intravenous Contrast CLINICAL HISTORY: Reason for exam: fall. TECHNIQUE: Axial computed tomography images of the cervical spine without intravenous contrast. CTDI is 26.62 mGy and DLP is 576.01 mGy-cm. Automated exposure control was utilized for the study. A dose lowering technique was utilized adhering to the principles of ALARA. COMPARISON: No relevant prior studies available. FINDINGS: Vertebrae: Unremarkable. No acute fracture. Discs/spinal canal/neural foramina: No acute findings. No spinal canal stenosis. Soft tissues: Unremarkable. IMPRESSION: No evidence of acute cervical spine pathology. Electronically signed by: Pearl Hair MD 05/10/24 22:[address] 05/10/24 18:26 Exam(s): CT HEAD Without Contrast EXAM: CT Head Without Intravenous Contrast CLINICAL HISTORY: Reason for exam: fall, dizzy. TECHNIQUE: Axial computed tomography images of the head/brain without intravenous contrast. CTDI is 36.43 mGy and DLP is 624.41 mGy-cm. Automated exposure control was utilized for the study. A dose lowering technique was utilized adhering to the principles of ALARA. COMPARISON: Prior head CT from March 07, 2020. FINDINGS: Brain: Unremarkable. No hemorrhage. No significant white matter disease. No edema. Ventricles: Unremarkable. No ventriculomegaly. Bones/joints: Unremarkable. No acute fracture. Soft tissues: Unremarkable. Sinuses: Unremarkable as visualized. No acute sinusitis. Mastoid air cells: Unremarkable as visualized. No mastoid effusion. IMPRESSION: No evidence of acute intracranial pathology. Electronically signed by: eParl Hair MD 05/10/24 22:14 PM Discharge Plan Visit Data Chief Complaint: Syncope (Near Syncope) Stated Complaint: Syncope (Near Syncope) ED Provider: Renaldo Silva Prescriptions Prescriptions: No Action atorvastatin 40 mg tablet 40 mg PO DAILYBL ondansetron 8 mg tablet,disintegrating 8 mg translingual Q8 PRN (Reason: Nausea) metoclopramide HCl 5 mg tablet 5 mg PO AC PRN (Reason: Nausea) trazodone 100 mg tablet 100 - 200 mg PO HS dicyclomine 20 mg tablet 20 mg PO HS meclizine 25 mg Tablet 25 mg PO TID PRN (Reason: .dizzy) baclofen 10 mg tablet 10 mg PO TID metformin 1,000 mg tablet 1,000 mg PO DAILY Novolin R Regular U100 Insulin 100 unit/mL solution 0 unit continuous subcutaneous infusion DIRECTED hydroxyzine HCl 25 mg tablet 25 mg PO TID PRN (Reason: Anxiety) albuterol sulfate 90 mcg/actuation HFA aerosol inhaler 2 puff INHALATION Q6 PRN (Reason: Shortness Of Breath Or Wheezing) loratadine 10 mg tablet 10 mg PO QAM escitalopram oxalate 20 mg tablet 20 mg PO DAILY eszopiclone 2 mg tablet 2 mg PO HS pregabalin 100 mg capsule 100 mg PO TID buprenorphine 5 mcg/hour patch weekly 1 patch topical WK Rx Instructions: sun naloxone 4 mg/actuation spray,non-aerosol 4 mg INTRANASAL DIRECTED PRN (Reason: opiod od) magnesium oxide 400 mg magnesium Tablet 400 mg PO DAILY pantoprazole 40 mg tablet,delayed release (DR/EC) 40 mg PO DAILY furosemide 40 mg tablet 40 mg PO Q OTHER DAY Qty: 0 0RF potassium chloride 10 mEq tablet extended release 20 meq PO DAILY Qty: 0 0RF Rx Instructions: Take with food atenolol 25 mg tablet 25 mg PO BID Qty: 60 0RF
[2024-05-10 18:22] LABS: Basophils # (auto) 0.05 K/uL (0.00-0.20); Basophils % (auto) 0.8 %; Eosinophils # (auto) 0.25 K/uL (0.00-0.50); Eosinophils % (auto) 3.9 %; Hematocrit (blood only) 34.4 % (37.0-47.0); Hemoglobin 11.1 g/dl (12.0-16.0); Immature Granulocytes # (auto) 0.02 K/uL (0.01-0.20); Immature Granulocytes % (auto) 0.3 %; Lymphocytes # (auto) 1.28 K/uL (1.20-3.40); Lymphocytes % (auto) 20.1 %; Mean Corpuscular Hemoglobin 26.7 pg (25.0-34.0); Mean Corpuscular Hgb Conc 32.3 g/dL (32.0-36.0); Mean Corpuscular Volume 82.9 fL (80.0-100.0); Mean Platelet Volume 10.3 fL (9.4-12.4); Monocytes # (auto) 0.63 K/uL (0.11-0.59); Monocytes % (auto) 9.9 %; Neutrophils # (auto) 4.14 K/uL (1.40-6.50); Platelet Count 73 K/uL (130-400); RDW Coefficient of Variation 16.4 % (11.5-14.5); RDW Standard Deviation 49.4 fL (36.4-46.3); Red Blood Count 4.15 M/uL (4.20-5.40); White Blood Count 6.37 K/ul (4.8-10.8)
--- NOTE | 2024-05-10 18:33 | XRay Report ---
EXAM: X-ray chest 1 view not portable CLINICAL HISTORY: Cough PRIORS: 02/01/2024, 03/07/2020 TECHNIQUE: Upright AP view chest FINDINGS: Overlying medical professionals is known projecting over the chest. Allowing for this, mildly diminished lung volumes noted. Cardiac silhouette moderately enlarged, unchanged. No airspace consolidation, effusion or congestive changes. No pneumothorax. Trachea is patent. Osseous structures demonstrate no acute abnormality. No radiopaque foreign body. IMPRESSION: Moderate enlargement of the cardiac silhouette, unchanged. Electronically signed by Tere Triana 05-10-2024 6:33 PM
[2024-05-10 18:39] LABS: Albumin Globulin Ratio 1.2 (0.9-2); Albumin Level 3.6 gm/dl (3.4-5.0); BUN Creatinine Ratio 10.9 (10-20); Bilirubin,Total 0.6 mg/dl (0.2-1.0); Calcium 8.4 mg/dl (8.6-10.3); Creatinine Clr Calc Pharmacy 31.2 ml/min; Globulin 3.1 gm/dl (2.5-4.0); Total Protein 6.7 gm/dl (6.0-8.3)
[2024-05-10 18:44] LABS: Troponin I High Sensitivity 2.5 pg/ml (0-14)
[2024-05-10 18:52] LABS: Magnesium 1.6 mg/dl (1.7-2.4)
[2024-05-10] MEDS: fentaNYL citrate PF 100 MCG/2 ML VIAL IV STA (19:35)
[2024-05-10 19:38] LABS: Adenovirus PCR Not Detected (NotDetected); Bordetella parapertussis PCR Not Detected (NotDetected); Bordetella pertussis PCR Not Detected (NotDetected); Chlamydia pneumoniae PCR Not Detected (NotDetected); Coronavirus 229E PCR Not Detected (NotDetected); Coronavirus CoV-2 (COVID19)PCR Not Detected (NotDetected); Coronavirus HKU1 PCR Not Detected (NotDetected); Coronavirus NL63 PCR Not Detected (NotDetected); Coronavirus OC43PCR Not Detected (NotDetected); Human Metapneumovirus PCR Not Detected (NotDetected); Influenza A PCR Not Detected (NotDetected); Influenza B PCR Not Detected (NotDetected); Mycoplasma pneumoniae PCR Not Detected (NotDetected); Parainfluenza Virus 1 PCR Not Detected (NotDetected); Parainfluenza Virus 2 PCR Not Detected (NotDetected); Parainfluenza Virus 3 PCR Not Detected (NotDetected); Parainfluenza Virus 4 PCR Not Detected (NotDetected); Respiratory Syncytial VirusPCR Not Detected (NotDetected); Rhinovirus/Enterovirus PCR Not Detected (NotDetected)
[2024-05-10] MEDS: SODIUM CHLORIDE 0.9% 250 ML IV ONE (20:11)
[2024-05-10 20:27] LABS: INR 1.1 (0.9-1.1); Partial Thromboplastin Ratio 0.9; Partial Thromboplastin Time 24 Seconds (21-31)
--- NOTE | 2024-05-10 22:16 | CT Scan Report ---
Exam(s): CT HEAD Without Contrast EXAM: CT Head Without Intravenous Contrast CLINICAL HISTORY: Reason for exam: fall, dizzy. TECHNIQUE: Axial computed tomography images of the head/brain without intravenous contrast. CTDI is 36.43 mGy and DLP is 624.41 mGy-cm. Automated exposure control was utilized for the study. A dose lowering technique was utilized adhering to the principles of ALARA. COMPARISON: Prior head CT from March 07, 2020. FINDINGS: Brain: Unremarkable. No hemorrhage. No significant white matter disease. No edema. Ventricles: Unremarkable. No ventriculomegaly. Bones/joints: Unremarkable. No acute fracture. Soft tissues: Unremarkable. Sinuses: Unremarkable as visualized. No acute sinusitis. Mastoid air cells: Unremarkable as visualized. No mastoid effusion. IMPRESSION: No evidence of acute intracranial pathology. Electronically signed by: Pearl Hair MD 05/10/24 22:14 PM
--- NOTE | 2024-05-10 22:25 | CT Scan Report ---
Exam(s): CT C SPINE EXAM: CT Cervical Spine Without Intravenous Contrast CLINICAL HISTORY: Reason for exam: fall. TECHNIQUE: Axial computed tomography images of the cervical spine without intravenous contrast. CTDI is 26.62 mGy and DLP is 576.01 mGy-cm. Automated exposure control was utilized for the study. A dose lowering technique was utilized adhering to the principles of ALARA. COMPARISON: No relevant prior studies available. FINDINGS: Vertebrae: Unremarkable. No acute fracture. Discs/spinal canal/neural foramina: No acute findings. No spinal canal stenosis. Soft tissues: Unremarkable. IMPRESSION: No evidence of acute cervical spine pathology. Electronically signed by: Pearl Hair MD 05/10/24 22:24 PM
--- NOTE | 2024-05-10 23:16 | CT Scan Report ---
Exam(s): CT ABDOMEN + PELVIS Without Contrast EXAM: CT Abdomen and Pelvis Without Intravenous Contrast CLINICAL HISTORY: Reason for exam: falls, back/flank pain. TECHNIQUE: Axial computed tomography images of the abdomen and pelvis without intravenous contrast. CTDI is 24.07 mGy and DLP is 1679.95 mGy-cm. Automated exposure control was utilized for the study. A dose lowering technique was utilized adhering to the principles of ALARA. COMPARISON: 02/01/2024. FINDINGS: The exam is limited due to lack of contrast material Lung bases: No consolidation. ABDOMEN: Liver: The liver is enlarged and lobulated. Gallbladder and bile ducts: No calcified stones. No ductal dilation. Pancreas: The visualized portions of the pancreas, on this noncontrast study, are grossly unremarkable. Spleen: The spleen is moderately enlarged.. Adrenals: No mass. Kidneys and ureters: No obstructing stones. No hydronephrosis. Stomach and bowel: There are 2 high-density structures noted within the stomach. There is air and stool noted in the colon.. PELVIS: Appendix: Unremarkable CT scan appearance noted the appendix.. Bladder: The urinary bladder is distended. No bladder calculi are seen. . Reproductive: Unremarkable as visualized. ABDOMEN and PELVIS: Intraperitoneal space: No free air. No significant fluid collection. Bones/joints: There are degenerative changes in the spine. There is a neurostimulator device with its leads extending into the spinal canal.. Soft tissues: Unremarkable. Vasculature: No abdominal aortic aneurysm. Lymph nodes: No enlarged lymph nodes. IMPRESSION: Limited exam. No evidence of renal calculi or hydronephrosis. Liver is enlarged and lobulated suggesting cirrhotic changes. There is moderate splenomegaly. There are 2 high-density structures within the stomach which may represent ingested foreign bodies. Electronically signed by: Owen Liao MD 05/10/24 23:15 PM
--- NOTE | 2024-05-10 23:40 | History & Physical Report ---
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 DM2 on insulin pump, well-controlled as of recent hemoglobin A1c of 6.3 last November 2023, hypoglycemic episode documented at the ER chronic pain on Butrans patch chronic back pain status post surgery Anxiety/mood disorder, stable as per patient chronic anemia, hemoglobin at baseline chronic thrombocytopenia secondary liver disease OBS Medical telemetry Baseline UA, monitor creatinine response to IVF, hold home diuretic until creatinine back to baseline Hold home BP meds until BP stable Hold insulin pump for now given hypoglycemia Pharmacy glycemic control consult Re: DM2 insulin pump PT OT eval once medically stable DVT prophylaxis. SCDs Re: Thrombocytopenia Full code Text document was generated using [employer] voice recognition software. It may contain grammatical or spelling errors. Kindly contact undersigned for clarification of any documentation item in question. History of Present Illness Chief Complaint: Neuro syncope, low BP Primary Care Provider: Scott Weldon MD History obtained from patient and records. Medical history significant for seizure disorder, hypertension, hyperlipidemia, past hx of CVA, chronic left hemiparesis as per records, NAFLD cirrhosis, liver malignancy, DM2 on insulin pump,CRI (baseline creatinine 1.4-1.5), chronic pain on Butrans patch, chronic back pain status post surgery, mood disorder, chronic anemia (baseline hemoglobin of 11), chronic thrombocytopenia, DONNA on CPAP. Last confinement January 2024 for hypotension and ARF. BP meds adjusted on discharge. Spironolactone and losartan discontinued. Patient not feeling well for about a week. Dizziness described as lightheadedness without unusual headache symptoms. Fair appetite. Denies chest pain, SOB, abdominal pain. Chronic back pain. Not sure about sick contacts. Feeling sluggish. SBP 80s at during [facility] nephrology office visit yesterday. Patient brought to ER via EMS. Transient hypoglycemia at the ER 70s as per RN. Medical History as above Surgical History : Hysteroscopy, vascular procedure, BTL, back surgery/spinal stimulator placement Family History : COPD, diabetes, liver disease, heart disease Personal/Social history : Non-smoker, no EtOH intake, disabled Allergies Allergy/AdvReac Type Severity Reaction Status Date / Time naproxen Allergy Unknown BLEEDING Verified 08/11/23 20:32 Home Medications Medication Instructions Recorded Confirmed Type albuterol sulfate 90 mcg/actuation 2 puff inhalation Q6 PRN Shortness 08/11/23 05/10/24 History aerosol inhaler Of Breath Or Wheezing atorvastatin 40 mg tablet 40 mg PO DAILYBL 08/11/23 05/10/24 History baclofen 10 mg tablet 10 mg PO TID 08/11/23 05/10/24 History buprenorphine 5 mcg/hour weekly 1 patch topical WK 08/11/23 05/10/24 History transdermal patch dicyclomine 20 mg tablet 20 mg PO HS 08/11/23 05/10/24 History escitalopram oxalate 20 mg tablet 20 mg PO DAILY 08/11/23 05/10/24 History eszopiclone 2 mg tablet 2 mg PO HS 08/11/23 05/10/24 History hydroxyzine HCl 25 mg tablet 25 mg PO TID PRN Anxiety 08/11/23 05/10/24 History insulin regular human 100 unit/mL 0 unit continuous subcutaneous 08/11/23 05/10/24 History injection solution (Novolin R infusion DIRECTED Regular U-100 Insulin) loratadine 10 mg tablet 10 mg PO QAM 08/11/23 05/10/24 History magnesium oxide 400 mg PO DAILY 08/11/23 05/10/24 History meclizine 25 mg tablet 25 mg PO TID PRN .dizzy 08/11/23 05/10/24 History metformin 1,000 mg tablet 1,000 mg PO DAILY 08/11/23 05/10/24 History metoclopramide HCl 5 mg tablet 5 mg PO AC PRN Nausea 08/11/23 05/10/24 History naloxone 4 mg/actuation nasal spray 4 mg intranasal DIRECTED PRN 08/11/23 05/10/24 History opiod od ondansetron 8 mg disintegrating 8 mg translingual Q8 PRN Nausea 08/11/23 05/10/24 History tablet pregabalin 100 mg capsule 100 mg PO TID 08/11/23 05/10/24 History trazodone 100 mg tablet 100 - 200 mg PO HS 08/11/23 05/10/24 History pantoprazole 40 mg tablet,delayed 40 mg PO DAILY 02/02/24 05/10/24 History release atenolol 25 mg tablet 25 mg PO BID #60 tabs 02/04/24 05/10/24 Rx furosemide 40 mg tablet 40 mg PO Q OTHER DAY #0 tabs 02/04/24 05/10/24 Rx potassium chloride 10 mEq 20 meq (2 x 10 mEq) PO DAILY #0 02/04/24 05/10/24 Rx tablet,extended release tabs Past Med/Surg History Problem List (Updated 05/11/24 @ 10:01 by Jaun Latham MD) Near syncope Encephalopathy Polypharmacy (Acute) Drowsiness (Acute) Dizziness (Acute) EVA (acute kidney injury) (Acute) Falls (Acute) Abdominal pain (Acute) EVA (acute kidney injury) (Acute) Hypotension (Acute) Hematemesis (Acute) Bright red rectal bleeding (Acute) Abdominal pain (Acute) Acute hypoxemic respiratory failure Hypoxia (Acute) Pneumonia due to COVID-19 virus (Acute) Hypophosphatemia (Acute) Seizure (Acute) Right flank pain (Acute) History of liver cancer (Acute) DVT prophylaxis Seizure (Acute) UTI (urinary tract infection) (Acute) Hypomagnesemia (Acute) Dehydration (Acute) Hyperglycemia (Acute) Rene's paralysis (Acute) Hepatocellular carcinoma Epileptic seizure (Acute) Anemia (Acute) Thrombocytopenia T2DM (type 2 diabetes mellitus) (Chronic) GERD (gastroesophageal reflux disease) (Chronic) Bipolar disorder (Chronic) Chronic pain (Chronic) HTN (hypertension) (Chronic) HLD (hyperlipidemia) (Chronic) Depression (Chronic) DONNA (obstructive sleep apnea) (Chronic) Back pain (Chronic) Liver cirrhosis secondary to MENDEZ (Acute) Medical History (Updated 05/11/24 @ 10:01 by Jaun Latham MD) Stroke Seizure Vertigo Liver cancer H/O TIA (transient ischemic attack) and stroke Hypertension Surgical History History of tubal ligation History of hysterectomy Family History Other No significant family history Social History Smoking Status: Never smoker Tobacco Type: Cigarettes Second Hand Exposure: No; Do You Dip or Chew Tobacco: No; Hx Alcohol Use: No Hx Substance Use: No Preferred Language: [place] Communication Ability: Effective Car Sweeper Required: No Beliefs That Will Affect Care: None Current Living Situation: Spouse Current Living Situation Comment: and a son Feels Safe at Home: Yes Safety Concerns: Feels Safe At This Time Assistive Devices: Cane and Glasses Review of Systems Review of Systems: As per HPI, all other systems reviewed and negative Physical Exam Physical Exam: GENERAL: Lethargic, morbidly obese, no respiratory distress SKIN: Pallor, warm HEENT: Bespectacled, pale palpebral conjunctivae, no ptosis, dry buccal mucosa, nasal cannula in place NECK : Supple, short neck, no tenderness CHEST : Decreased breath sounds, no tenderness HEART : RRR, no obvious murmurs ABDOMEN: Chronic distention,no tenderness EXTREMITIES : Bilateral LE swelling, no LE tenderness, no other conspicuous deformities noted NEUROLOGIC : Lethargic, no facial asymmetry, gait and stance not assessed Results & Data Results & Data Vital Signs (Past 12 Hours) Vital Signs Temp Pulse Resp BP Pulse Ox O2 Del Method O2 Flow Rate 05/10/24 22:00 75 12 125/91 98 Nasal Cannula 2 05/10/24 21:46 77 05/10/24 21:30 78 12 101/69 96 Nasal Cannula 2 05/10/24 21:00 78 18 111/71 97 Room Air 05/10/24 20:53 87 L Room Air, Nasal Cannula 05/10/24 20:36 78 12 117/70 92 Room Air 05/10/24 20:16 78 14 108/71 91 Room Air 05/10/24 20:15 79 14 92 Room Air 05/10/24 19:00 81 14 100/74 96 Room Air 05/10/24 18:57 91 Room Air 05/10/24 17:57 84 05/10/24 17:30 94 Room Air 05/10/24 17:30 94 Room Air 05/10/24 17:30 37 C 82 18 105/70 94 Room Air Laboratory Results Laboratory Results WBC 6.37 K/ul (4.8-10.8) 05/10/24 17:54 RBC 4.15 M/uL (4.20-5.40) L 05/10/24 17:54 Hgb 11.1 g/dl (12.0-16.0) L 05/10/24 17:54 Hct 34.4 % (37.0-47.0) L 05/10/24 17:54 MCV 82.9 fL (80.0-100.0) 05/10/24 17:54 MCH 26.7 pg (25.0-34.0) 05/10/24 17:54 MCHC 32.3 g/dL (32.0-36.0) 05/10/24 17:54 RDW Std Deviation 49.4 fL (36.4-46.3) H 05/10/24 17:54 RDW Coeff of Bailey 16.4 % (11.5-14.5) H 05/10/24 17:54 Plt Count 73 K/uL (130-400) L 05/10/24 17:54 MPV 10.3 fL (9.4-12.4) 05/10/24 17:54 Immature Gran % (Auto) 0.3 % 05/10/24 17:54 Neut % (Auto) 65.0 % 05/10/24 17:54 Lymph % (Auto) 20.1 % 05/10/24 17:54 Sharp % (Auto) 9.9 % 05/10/24 17:54 Eos % (Auto) 3.9 % 05/10/24 17:54 Baso % (Auto) 0.8 % 05/10/24 17:54 Neut # (Auto) 4.14 K/uL (1.40-6.50) 05/10/24 17:54 Lymph # (Auto) 1.28 K/uL (1.20-3.40) 05/10/24 17:54 Sharp # (Auto) 0.63 K/uL (0.11-0.59) H 05/10/24 17:54 Eos # (Auto) 0.25 K/uL (0.00-0.50) 05/10/24 17:54 Baso # (Auto) 0.05 K/uL (0.00-0.20) 05/10/24 17:54 Immature Gran # (Auto) 0.02 K/uL (0.01-0.20) 05/10/24 17:54 PT 12.0 Seconds (9.0-12.0) 05/10/24 19:32 INR 1.1 (0.9-1.1) 05/10/24 19:32 APTT 24 Seconds (21-31) 05/10/24 19:32 PTT Ratio 0.9 05/10/24 19:32 Sodium 143 mmol/L (136-145) 05/10/24 17:54 Potassium 4.0 mmol/L (3.5-5.1) 05/10/24 17:54 Chloride 105 mmol/L (98-107) 05/10/24 17:54 Carbon Dioxide 30 mmol/L (21-32) 05/10/24 17:54 Anion Gap 8 (3-11) 05/10/24 17:54 BUN 28 mg/dl (6-23) H 05/10/24 17:54 Creatinine 2.57 mg/dl (0.6-1.2) H 05/10/24 17:54 Est Cr Clr Drug Dosing 31.2 ml/min 05/10/24 17:54 eGFR 21.97 05/10/24 17:54 BUN/Creatinine Ratio 10.9 (10-20) 05/10/24 17:54 Glucose 117 mg/dl (70-99(Fasting)) H 05/10/24 17:54 Calcium 8.4 mg/dl (8.6-10.3) L 05/10/24 17:54 Magnesium 1.6 mg/dl (1.7-2.4) L 05/10/24 17:54 Total Bilirubin 0.6 mg/dl (0.2-1.0) 05/10/24 17:54 AST 36 U/L (13-39) 05/10/24 17:54 ALT 16 U/L (7-52) 05/10/24 17:54 Alkaline Phosphatase 147 U/L (34-104) H 05/10/24 17:54 Total Creatine Kinase 55 U/L (26-192) 05/10/24 17:54 Troponin I High Sens 2.5 pg/ml (0-14) 05/10/24 17:54 Total Protein 6.7 gm/dl (6.0-8.3) 05/10/24 17:54 Albumin 3.6 gm/dl (3.4-5.0) 05/10/24 17:54 Globulin 3.1 gm/dl (2.5-4.0) 05/10/24 17:54 Albumin/Globulin Ratio 1.2 (0.9-2) 05/10/24 17:54 Lipase 70 U/L (11-82) 05/10/24 17:54 Procalcitonin 0.13 ng/ml (0-0.5) 05/10/24 17:54 Adenovirus (PCR) Not Detected (NotDetected) 05/10/24 18:35 B. pertussis DNA (PCR) Not Detected (NotDetected) 05/10/24 18:35 B.parapertussis DNA PCR Not Detected (NotDetected) 05/10/24 18:35 C. pneumoniae DNA (PCR) Not Detected (NotDetected) 05/10/24 18:35 Coronavirus OC43 (PCR) Not Detected (NotDetected) 05/10/24 18:35 Coronavirus HKU1 (PCR) Not Detected (NotDetected) 05/10/24 18:35 Coronavirus 229E (PCR) Not Detected (NotDetected) 05/10/24 18:35 SARS-CoV-2 (PCR) Not Detected (NotDetected) 05/10/24 18:35 Coronavirus NL63 (PCR) Not Detected (NotDetected) 05/10/24 18:35 Human Metapneumovir PCR Not Detected (NotDetected) 05/10/24 18:35 Influenza Type A (PCR) Not Detected (NotDetected) 05/10/24 18:35 Influenza Type B (PCR) Not Detected (NotDetected) 05/10/24 18:35 M. pneumoniae (PCR) Not Detected (NotDetected) 05/10/24 18:35 Parainfluenza 1 (PCR) Not Detected (NotDetected) 05/10/24 18:35 Parainfluenza 2 (PCR) Not Detected (NotDetected) 05/10/24 18:35 Parainfluenza 3 (PCR) Not Detected (NotDetected) 05/10/24 18:35 Parainfluenza 4 (PCR) Not Detected (NotDetected) 05/10/24 18:35 RSV (PCR) Not Detected (NotDetected) 05/10/24 18:35 Entero/Rhino (PCR) Not Detected (NotDetected) 05/10/24 18:35 Impressions Chest X-Ray 05/10/24 17:55 EXAM: X-ray chest 1 view not portable CLINICAL HISTORY: Cough PRIORS: 02/01/2024, 03/07/2020 TECHNIQUE: Upright AP view chest FINDINGS: Overlying medical imaging tech is known projecting over the chest. Allowing for this, mildly diminished lung volumes noted. Cardiac silhouette moderately enlarged, unchanged. No airspace consolidation, effusion or congestive changes. No pneumothorax. Trachea is patent. Osseous structures demonstrate no acute abnormality. No radiopaque foreign body. IMPRESSION: Moderate enlargement of the cardiac silhouette, unchanged. Electronically signed by Tere Triana 05-10-2024 6:33 PM Abdomen/Pelvis CT 05/10/24 18:26 Exam(s): CT ABDOMEN + PELVIS Without Contrast EXAM: CT Abdomen and Pelvis Without Intravenous Contrast CLINICAL HISTORY: Reason for exam: falls, back/flank pain. TECHNIQUE: Axial computed tomography images of the abdomen and pelvis without intravenous contrast. CTDI is 24.07 mGy and DLP is 1679.95 mGy-cm. Automated exposure control was utilized for the study. A dose lowering technique was utilized adhering to the principles of ALARA. COMPARISON: 02/01/2024. FINDINGS: The exam is limited due to lack of contrast material Lung bases: No consolidation. ABDOMEN: Liver: The liver is enlarged and lobulated. Gallbladder and bile ducts: No calcified stones. No ductal dilation. Pancreas: The visualized portions of the pancreas, on this noncontrast study, are grossly unremarkable. Spleen: The spleen is moderately enlarged.. Adrenals: No mass. Kidneys and ureters: No obstructing stones. No hydronephrosis. Stomach and bowel: There are 2 high-density structures noted within the stomach. There is air and stool noted in the colon.. PELVIS: Appendix: Unremarkable CT scan appearance noted the appendix.. Bladder: The urinary bladder is distended. No bladder calculi are seen. . Reproductive: Unremarkable as visualized. ABDOMEN and PELVIS: Intraperitoneal space: No free air. No significant fluid collection. Bones/joints: There are degenerative changes in the spine. There is a neurostimulator device with its leads extending into the spinal canal.. Soft tissues: Unremarkable. Vasculature: No abdominal aortic aneurysm. Lymph nodes: No enlarged lymph nodes. IMPRESSION: Limited exam. No evidence of renal calculi or hydronephrosis. Liver is enlarged and lobulated suggesting cirrhotic changes. There is moderate splenomegaly. There are 2 high-density structures within the stomach which may represent ingested foreign bodies. Electronically signed by: Owen Liao MD 05/10/24 23:[address] 05/10/24 18:26 Exam(s): CT C SPINE EXAM: CT Cervical Spine Without Intravenous Contrast CLINICAL HISTORY: Reason for exam: fall. TECHNIQUE: Axial computed tomography images of the cervical spine without intravenous contrast. CTDI is 26.62 mGy and DLP is 576.01 mGy-cm. Automated exposure control was utilized for the study. A dose lowering technique was utilized adhering to the principles of ALARA. COMPARISON: No relevant prior studies available. FINDINGS: Vertebrae: Unremarkable. No acute fracture. Discs/spinal canal/neural foramina: No acute findings. No spinal canal stenosis. Soft tissues: Unremarkable. IMPRESSION: No evidence of acute cervical spine pathology. Electronically signed by: Pearl Hair MD 05/10/24 22:[address] 05/10/24 18:26 Exam(s): CT HEAD Without Contrast EXAM: CT Head Without Intravenous Contrast CLINICAL HISTORY: Reason for exam: fall, dizzy. TECHNIQUE: Axial computed tomography images of the head/brain without intravenous contrast. CTDI is 36.43 mGy and DLP is 624.41 mGy-cm. Automated exposure control was utilized for the study. A dose lowering technique was utilized adhering to the principles of ALARA. COMPARISON: Prior head CT from March 07, 2020. FINDINGS: Brain: Unremarkable. No hemorrhage. No significant white matter disease. No edema. Ventricles: Unremarkable. No ventriculomegaly. Bones/joints: Unremarkable. No acute fracture. Soft tissues: Unremarkable. Sinuses: Unremarkable as visualized. No acute sinusitis. Mastoid air cells: Unremarkable as visualized. No mastoid effusion. IMPRESSION: No evidence of acute intracranial pathology. Electronically signed by: Pearl Hair MD 05/10/24 22:14 PM Diagnostic Findings EKG as per my interpretation :Rate 80, NSR, LAD, LAFB, incomplete RBBB, nonspecific T wave abnormalities
[2024-05-10] MEDS: MAGNESIUM SULFATE / D5W 1 GM/100 ML BAG IV ONE (23:43)
[2024-05-11] MEDS ORDERED: PHARMACY GLYCEMIC MGMT CONSULT PRN (00:15)
[2024-05-11] MEDS ORDERED: GLUCOSE 40% GEL 15 GM TUBE PO PRN (00:34)
[2024-05-11] MEDS ORDERED: DEXTROSE 50% 50 ML SYRINGE IV PRN (00:34)
[2024-05-11] MEDS ORDERED: GLUCAGON FOR INJ 1 MG VIAL SQ PRN (00:34)
[2024-05-11] MEDS ORDERED: CARBOHYDRATES FOR HYPOGLYCEMIA PO PRN (00:34)
[2024-05-11] MEDS ORDERED: GLUCOSE 10 TAB/TUBE PO PRN (00:34)
--- NOTE | 2024-05-11 00:54 | CT Scan Report ---
Exam(s): CT CHEST Without Contrast EXAM: CT Chest Without Intravenous Contrast CLINICAL HISTORY: Reason for exam: falls, back pain. TECHNIQUE: Axial computed tomography images of the chest without intravenous contrast. CTDI is 24.07 mGy and DLP is 1679.95 mGy-cm. Automated exposure control was utilized for the study. A dose lowering technique was utilized adhering to the principles of ALARA. COMPARISON: No relevant prior studies available. FINDINGS: Lungs: No mass. No consolidation. Pleural space: No pneumothorax. No significant effusion. Heart: The heart is normal in size.. Bones/joints: No acute fracture. No dislocation. There are degenerative changes in the spine and shoulders. There is a neurostimulator device with its leads extending into the spinal canal. Soft tissues: Unremarkable. Vasculature: No thoracic aortic aneurysm. A central line catheter is noted with its tip in the superior vena cava. Lymph nodes: No enlarged lymph nodes. IMPRESSION: Unremarkable noncontrast CT scan of the chest, as described above Electronically signed by: Owen Liao MD 05/11/24 00:53 AM
[2024-05-11] MEDS: INSULIN ASPART PER UNIT CHARGE SC SCH (01:48)
[2024-05-11] MEDS: SODIUM CHLORIDE 0.45 % 1,000 ML IV ONE (01:49)
[2024-05-11 02:09] LABS: Calcium 8.3 mg/dl (8.6-10.3); Potassium 3.9 mmol/L (3.5-5.1)
[2024-05-11 02:15] LABS: BUN Creatinine Ratio 12.7 (10-20); Creatinine Clr Calc Pharmacy 36.3 ml/min
[2024-05-11 06:49] LABS: Basophils # (auto) 0.03 K/uL (0.00-0.20); Basophils % (auto) 0.7 %; Eosinophils # (auto) 0.14 K/uL (0.00-0.50); Eosinophils % (auto) 3.2 %; Hematocrit (blood only) 33.4 % (37.0-47.0); Hemoglobin 10.3 g/dl (12.0-16.0); Immature Granulocytes # (auto) 0.02 K/uL (0.01-0.20); Immature Granulocytes % (auto) 0.5 %; Lymphocytes # (auto) 1.14 K/uL (1.20-3.40); Lymphocytes % (auto) 25.7 %; Mean Corpuscular Hemoglobin 25.9 pg (25.0-34.0); Mean Corpuscular Hgb Conc 30.8 g/dL (32.0-36.0); Mean Corpuscular Volume 84.1 fL (80.0-100.0); Mean Platelet Volume 9.7 fL (9.4-12.4); Monocytes # (auto) 0.43 K/uL (0.11-0.59); Monocytes % (auto) 9.7 %; Neutrophils # (auto) 2.67 K/uL (1.40-6.50); Neutrophils % (auto) 60.2 %; Platelet Count 50 K/uL (130-400); RDW Coefficient of Variation 16.4 % (11.5-14.5); Red Blood Count 3.97 M/uL (4.20-5.40); White Blood Count 4.43 K/ul (4.8-10.8)
[2024-05-11 07:08] LABS: Calcium 8.2 mg/dl (8.6-10.3); Magnesium 1.9 mg/dl (1.7-2.4); Potassium 4.1 mmol/L (3.5-5.1)
[2024-05-11 07:13] LABS: BUN Creatinine Ratio 13.3 (10-20); Creatinine Clr Calc Pharmacy 39.6 ml/min
[2024-05-11 07:19] LABS: Estimated Average Glucose 137 mg/dl; Hemoglobin A1C 6.4 % (4.5-5.6)
[2024-05-11] MEDS: PANTOprazole 40 MG TAB PO SCH (08:03)
[2024-05-11] MEDS: ESCITALOPRAM OXALATE 20 MG TAB PO SCH (08:03)
[2024-05-11] MEDS: LORATADINE 10 MG TAB PO SCH (08:03)
--- NOTE | 2024-05-11 09:51 | Electrocardiogram Report ---
Test Reason : Blood Pressure : */* mmHG Vent. Rate : 82 BPM Atrial Rate : * BPM P-R Int : * ms QRS Dur : 72 ms QT Int : 374 ms P-R-T Axes : * -1 118 degrees QTcB Int : 436 ms Poor data quality, interpretation may be adversely affected Normal sinus rhythm Poor R wave progression, consider anterior NJ vs. lead placement vs. LVH Abnormal ECG When compared with ECG of 01-Feb-2024 22:23, Criteria for Inferior infarct are no longer Present QT has lengthened Confirmed by Jh Nicholas ([id number]) on 05/11/2024 9:51:16 AM Referred By: REFERRED SELF Confirmed By: Jh Nicholas
[2024-05-11] MEDS: ATORVASTATIN 40 MG TAB PO SCH (10:02)
--- NOTE | 2024-05-11 13:47 | Hospitalist Progress Note ---
Date of Service May 11, 2024 Assessment & Plan (1) Near syncope: Plan: 53-year-old lady with PMH of seizure disorder, HTN, HLD, CVA, chronic left hemiparesis, NAFLD cirrhosis, liver malignancy, T2DM on insulin pump, CKD [baseline creatinine of 1.4-1.5], chronic pain on Butrans patch, chronic back pain status post surgery, mood disorder, chronic anemia [baseline hemoglobin of 11], chronic thrombocytopenia, DONNA on CPAP was sent from the nephrology office f or low blood pressure [SBP in 80s]. 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 Of note, patient was admitted in her last admission for hypotension and ARF, spironolactone and losartan were discontinued at that time. 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 Patient denies fever, cough. Respiratory pathogen panel at admission negative. Patient noted to be hypotensive at nephrology office. Admitting CTAP with cirrhotic liver and moderate splenomegaly. 2 high density structures noted within the stomach could be her clips from GI procedure last September. Rule out other infection/causes for hypotension: CT chest negative for infection, UA pending, urine drug screen pending Will get a stool PCR and C. difficile. Orthostatic vitals Continue to hold blood pressure medications IV fluids and encourage Pedialyte solution for now. Continue to follow. Fall precautions. Acute kidney injury over CKD stage III: Likely prerenal secondary to hypotension. Admitting CTAP with no evidence of obstruction. Baseline creat inine of 1.4-1.5. Admitting creatinine of 2.57. Continue with IV fluid, avoid nephrotoxins, creatinine downtrending, labs in AM. Metabolic Encephalopathy: secondary to illness, multiple neuropsychotropic medications contributory. CT head with no acute finding. Appears resolved at bedside exam. Hold neuropsy meds for now. Other chronic medical conditions: Continue with/resume home meds as and when able. 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 Hold insulin pump for now given hypoglycemia, gycemic pharmacy consult. chronic pain on Butrans patch chronic back pain status post surgery Anxiety/mood disorder, stable as per patient chronic anemia, hemoglobin at baseline chronic thrombocytopenia secondary liver disease PT OT eval once BP better. DVT prophylaxis. SCDs Re: Thrombocytopenia Full code Text document was generated using [employer] voice recognition software. It may contain grammatical or spelling errors. Kindly contact undersigned for clarification of any documentation item in question. Admission and Anticipated Discharge Date Admission Date: May 10, 2024 Subjective Patient was seen and examined at bedside. Patient was lying in bed, on room air, NAD, resting comfortably. Patient obvious weak/tired/lethargic, is oriented, reports chronic nausea, denies vomiting, reports dizziness and weakness, denies fever/sore throat/cough/chest pain. Patient reports eating at her baseline. Physical Exam Physical Exam: GENERAL: Lethargic, morbidly obese, no respiratory distress SKIN: Pallor, warm HEENT: Bespectacled, pale palpebral conjunctivae, no ptosis, moist buccal mucosa, on RA NECK : Supple, short neck, no tenderness CHEST : Decreased breath sounds 2/2 poor effort, no tenderness HEART : RRR, no obvious murmurs ABDOMEN: Chronic distention,no tenderness EXTREMITIES : Bilateral trace LE swelling, no LE tenderness, no other conspicuous deformities noted NEUROLOGIC : Lethargic, no facial asymmetry, gait and stance not assessed Results & Data Results & Data Vital Signs (Past 12 Hours) Vital Signs Pulse Pulse Resp BP BP Pulse Ox O2 Del Method 05/11/24 10:30 77 16 97 05/11/24 10:01 82 16 116/64 95 Nasal Cannula 05/11/24 10:00 74 12 98 05/11/24 10:00 116/64 05/11/24 10:00 116/64 05/11/24 09:30 73 15 99 05/11/24 09:00 74 97 05/11/24 08:48 73 14 05/11/24 08:03 77 13 98 05/11/24 07:39 78 16 99 05/11/24 07:39 142/97 H 05/11/24 07:39 142/97 H 05/11/24 07:38 70 16 142/97 H 98 Nasal Cannula 05/11/24 07:12 74 12 98 05/11/24 06:56 73 05/11/24 06:50 129/103 H 05/11/24 06:50 129/103 H 05/11/24 06:42 74 99 05/11/24 06:30 73 97 05/11/24 06:12 72 12 98 05/11/24 05:39 73 13 98 05/11/24 05:00 106/80 05/11/24 05:00 106/80 05/11/24 05:00 106/80 05/11/24 05:00 74 98 05/11/24 04:36 74 13 98 05/11/24 04:30 111/80 05/11/24 04:27 74 13 97 05/11/24 04:06 74 97 05/11/24 03:56 74 05/11/24 03:33 75 12 99 05/11/24 03:31 105/84 05/11/24 03:31 105/84 05/11/24 03:31 105/84 05/11/24 03:15 73 13 97 05/11/24 03:09 74 13 97 05/11/24 03:03 78 16 114/65 98 05/11/24 02:30 74 13 109/70 97 Nasal Cannula 05/11/24 02:22 Nasal Cannula 05/11/24 02:12 76 16 97 Nasal Cannula 05/11/24 02:00 78 17 115/72 100 Nasal Cannula O2 Flow Rate 05/11/24 10:30 05/11/24 10:01 2 05/11/24 10:00 05/11/24 10:00 05/11/24 10:00 05/11/24 09:30 05/11/24 09:00 05/11/24 08:48 05/11/24 08:03 05/11/24 07:39 05/11/24 07:39 05/11/24 07:39 05/11/24 07:38 2 05/11/24 07:12 05/11/24 06:56 05/11/24 06:50 05/11/24 06:50 05/11/24 06:42 05/11/24 06:30 05/11/24 06:12 05/11/24 05:39 05/11/24 05:00 05/11/24 05:00 05/11/24 05:00 05/11/24 05:00 05/11/24 04:36 05/11/24 04:30 05/11/24 04:27 05/11/24 04:06 05/11/24 03:56 05/11/24 03:33 05/11/24 03:31 05/11/24 03:31 05/11/24 03:31 05/11/24 03:15 05/11/24 03:09 05/11/24 03:03 05/11/24 02:30 2 05/11/24 02:22 2 05/11/24 02:12 2 05/11/24 02:00 2
[2024-05-11] MEDS: ACETAMINOPHEN 500 MG TAB PO PRN (14:15)
--- NOTE | 2024-05-11 14:52 | Pharmacy Report ---
Pharmacy Glycemic Short Note 2 - Date of Service May 11, 2024 - Glycemic Short BSG Results (Last 24 hours): 05/10/24 05/11/24 05/11/24 17:54 00:19 01:46 Glucose 117 H POC Glucose 115 H 102 H 05/11/24 05/11/24 05/11/24 01:48 06:35 08:01 Glucose 105 H 109 H POC Glucose 103 H 05/11/24 13:20 Glucose POC Glucose 140 H OUTPATIENT ANTIDIABETIC REGIMEN: * Insulin pump - basal ~73 units/day, CF 10, CR 4 - per outpatient [facility] records ASSESSMENT: * 53 year old admitted with AMS, EVA, gastroenteritis concerns. Pharmacy consulted for glycemic management. Patient typically on insulin pump, however per notes was experiencing low BSGs so insulin pump taken off early this morning. * BSGs in lower 100s this AM - no po intake documented for breakfast or lunch. BSGs still in range with no basal insulin ordered. * Will have conservative scale for Lantus at HS in case BSGs start to increase/PO intake improves PLAN FOR INPATIENT GLYCEMIC CONTROL: * Hold outpatient oral diabetes medications * Basal insulin * Lantus 0-15 units HS * Bolus insulin * NovoLog per scale ACHS or Q6hrs while NPO * Goal Range: Low 110 mg/dL - High 140 mg/dL * Correction Factor: 25 mg/dL/unit * Nutritional / Prandial insulin per carb ratio of 1 unit per 10 grams CHO consumed
[2024-05-11] MEDS: SODIUM CHLORIDE 0.9% 1,000 ML IV SCH (15:54)
[2024-05-11 19:18] LABS: Appearance Urine Cloudy (Clear); Bacteria Urine Automated 1+ (None Seen); Bilirubin Urine Negative (Negative); Blood Urine Negative (Negative); Color Urine Yellow; Glucose Urine UA Negative (Negative); Ketones Urine Negative (Negative); Leukocyte Esterase Urine 3+ (Negative); Nitrite Urine Negative (Negative); Protein Urine Negative (Negative); RBC Urine Automated 0-2 /hpf (0-2); Specific Gravity Urine 1.017 (1.000-1.030); Urobilinogen Urine Negative (Negative); WBC Urine Automated >50 /hpf (0-5); pH Urine 5.5 (4.5-7.5)
[2024-05-11 20:38] LABS: Amphetamines+Metham, Urine Neg (Neg); Barbiturates, Urine Neg (Neg); Benzodiazepine, Urine Neg (Neg); Cocaine, Urine Neg (Neg); Fentanyl, Urine Pos (Neg); MDMA (Ecstacy), Urine Pos (Neg); Marijuana, Urine Neg (Neg); Methadone, Urine Neg (Neg); Opiate, Urine Neg (Neg); Phencyclidine, Urine Neg (Neg)
[2024-05-11] MEDS: traMADol HCL 50 MG TABLET PO STA (20:39)
[2024-05-11] MEDS: LANTUS PER UNIT CHARGE SC SCH (20:39)
[2024-05-11] MEDS: hydrOXYzine HCl 25 MG TAB PO STA (23:06)
[2024-05-11] MEDS: traZODone HCL 100 MG TAB PO STA (23:06)
[2024-05-12 10:18] LABS: Hematocrit (blood only) 32.4 % (37.0-47.0); Hemoglobin 10.5 g/dl (12.0-16.0); Mean Corpuscular Hemoglobin 26.9 pg (25.0-34.0); Mean Corpuscular Hgb Conc 32.4 g/dL (32.0-36.0); Mean Corpuscular Volume 83.1 fL (80.0-100.0); Mean Platelet Volume 9.6 fL (9.4-12.4); Platelet Count 52 K/uL (130-400); RDW Coefficient of Variation 16.1 % (11.5-14.5); White Blood Count 4.01 K/ul (4.8-10.8)
[2024-05-12 10:31] LABS: BUN Creatinine Ratio 15.3 (10-20); Calcium 8.1 mg/dl (8.6-10.3); Creatinine Clr Calc Pharmacy 58.5 ml/min; Magnesium 1.5 mg/dl (1.7-2.4); Phosphorus 3.1 mg/dl (2.5-4.9); Potassium 4.5 mmol/L (3.5-5.1)
[2024-05-12] MEDS: MAGNESIUM SULFATE / D5W 1 GM/100 ML BAG IV ONE (11:09)
[2024-05-12] MEDS: BUTALBITAL/ACETAMIN/CAFFEINE TAB PO STA (11:10)
[2024-05-12] MEDS ORDERED: dexAMETHasone**PF** 10 MG/ML VIAL IV ONE (12:13)
[2024-05-12] MEDS: dexAMETHasone 10 MG in SYRINGE 0 ML IV ONE (12:56)
[2024-05-12] MEDS: LANTUS PER UNIT CHARGE SC ONE (12:56)
[2024-05-12] MEDS: INFLUENZA VACC TS2024-25(6m+)/PF (IIV3) 0.5mL Syr IM ONE (12:58)
[2024-05-12] MEDS: PREGABALIN 75 MG CAP PO SCH (13:51)
[2024-05-12] MEDS: BACLOFEN 10 MG TAB PO SCH (13:51)
--- NOTE | 2024-05-12 14:58 | Pharmacy Report ---
Pharmacy Glycemic Short Note 2 - Date of Service May 12, 2024 - Glycemic Short BSG Results (Last 24 hours): 05/11/24 05/11/24 05/12/24 17:00 20:12 08:11 Glucose POC Glucose 126 H 150 H 125 H 05/12/24 05/12/24 09:51 11:54 Glucose 176 H POC Glucose 146 H OUTPATIENT ANTIDIABETIC REGIMEN: * Insulin pump - basal ~73 units/day, CF 10, CR 4 - per outpatient [facility] records * HbA1c 6.4% (05/10/24) ASSESSMENT: 05/12 * Carmen received 6 units of correctional insulin yesterday * Fasting BSG this AM acceptable, BSGs creeping up, patient with complaints of headache treated with 10mg IV dexamethasone, initiated 0.4 units/kg of basal insulin to cover steroid induced hyperglycemia and any other basal needs while off of insulin pump. Reassess basal in AM. Will allow for basal this evening again to be given if BSGs elevated. * Will tighten correction factor slightly to a weight based stress of 2 with steroids, appetite poor per nursing notes. 05/11 * 53 year old admitted with AMS, EVA, gastroenteritis concerns. Pharmacy consulted for glycemic management. Patient typically on insulin pump, however per notes was experiencing low BSGs so insulin pump taken off early this morning. * BSGs in lower 100s this AM - no po intake documented for breakfast or lunch. BSGs still in range with no basal insulin ordered. * Will have conservative scale for Lantus at HS in case BSGs start to incr ease/PO intake improves PLAN FOR INPATIENT GLYCEMIC CONTROL: * Hold outpatient oral diabetes medications * Basal insulin * Lantus 40 units SQ now x1 with dexamethasone * Lantus 0-15 units SQ HS * Bolus insulin * NovoLog per scale ACHS or Q6hrs while NPO * Goal Range: Low 110 mg/dL - High 140 mg/dL * Correction Factor: 25 mg/dL/unit * Nutritional / Prandial insulin per carb ratio of 1 unit per 7 grams CHO consumed
[2024-05-12] MEDS: hydrOXYzine HCl 25 MG TAB PO PRN (17:12)
[2024-05-12] MEDS: LORazepam 2 MG/1 ML VIAL IV STA (17:45)
--- NOTE | 2024-05-12 18:08 | Hospitalist Progress Note ---
Date of Service May 12, 2024 Assessment & Plan (1) Near syncope: Plan: 53-year-old lady with PMH of seizure disorder, HTN, HLD, CVA, chronic left hemiparesis, NAFLD cirrhosis, liver malignancy, T2DM on insulin pump, CKD [baseline creatinine of 1.4-1.5], chronic pain on Butrans patch, chronic back pain status post surgery, mood disorder, chronic anemia [baseline hemoglobin of 11], chronic thrombocytopenia, DONNA on CPAP was sent from the nephrology office f or low blood pressure [SBP in 80s]. Patient reports feeling not well for about a week, reports baseline appetite, reports feeling sluggish, reports having loose stools about 4 times a day since last 3 days ago [employer]. Of note, patient was admitted in her last admission for hypotension and ARF, spironolactone and losartan were discontinued at that time. She is being managed for the following: Diarrhea Possible viral gastroenteritis Hypotension resolved Patient reports not feeling well and feeling sluggish for about a week [employer], is having multiple loose stools for 3 days [employer]. Patient denies fever, cough. Respiratory pathogen panel at admission negative. Patient noted to be hypotensive at nephrology office. Admitting CTAP with cirrhotic liver and moderate splenomegaly. 2 high density structures noted within the stomach could be her clips from GI procedure last September. Rule out other infection/causes for hypotension: CT chest negative for infection, UA negative, urine drug screen fentanyl/mdma --received fent in ED, mdma false positive no further diarrhea Orthostatic vitals negative resume atenolol as BP improving and intake improving likely dispo tomorrow Acute kidney injury over CKD stage III resolving: Likely prerenal secondary to hypotension. Admitting CTAP with no evidence of obstruction. Baseline creatinine of 1.4-1.5. Admitting creatinine of 2.57. Continue to encourgae po, avoid nephrotoxins, creatinine downtrending, labs in AM. Metabolic Encephalopathy: secondary to illness, multiple neuropsychotropic medications contributory. CT head with no acute finding. Appears resolved at bedside exam. resume home medications Other chronic medical conditions: Continue with/resume home meds as and when able. seizure disorder, stable off maintenance AED Rx hyperlipidemia, on statin Rx hx of CVA, chronic left hemiparesis as per records NAFLD cirrhosis, liver malignancy, compensated liver disease, patient follows with [facility] DM2 on insulin pump, well-controlled as of recent hemoglobin A1c of 6.3 last November 2023, hypoglycemic episode documented at the ER. Hold insulin pump for now given hypoglycemia, gycemic pharmacy consult. chronic pain on Butrans patch chronic back pain status post surgery Anxiety/mood disorder, stable as per patient chronic anemia, hemoglobin at baseline chronic thrombocytopenia secondary liver disease PT OT eval once BP better. DVT prophylaxis. SCDs Re: Thrombocytopenia Full code Admission and Anticipated Discharge Date Admission Date: May 10, 2024 Subjective NAEO reported bad headache, but notes it resolved with IV meds and resumption of home regimen Then with anxiety attack in afternoon, resolved with small dose of ativan and h ome hydroxyzine Eating dinner without difficulty and hopeful for discharge in am Physical Exam Constitutional: WD/WN, vitals as above Respiratory: normal respiratory effort, lungs clear to auscultation Cardiovascular: RRR, no murmur, no edema Gastrointestinal (Abdomen): normal bowel sounds, soft, nontender, no hepatosplenomegaly Results & Data Results & Data Vital Signs (Past 12 Hours) Vital Signs Temp Pulse Pulse Resp BP Pulse Ox O2 Del Method 05/12/24 15:53 36.9 C 70 20 154/90 H 92 Room Air 05/12/24 15:16 70 05/12/24 11:21 36.7 C 115 H 20 136/83 95 Room Air 05/12/24 07:58 36.6 C 75 16 122/76 92 Room Air 05/12/24 07:10 69 Laboratory Results Short CBC 05/12/24 Range/Units 09:51 WBC 4.01 L (4.8-10.8) K/ul Hgb 10.5 L (12.0-16.0) g/dl Hct 32.4 L (37.0-47.0) % Plt Count 52 L (130-400) K/uL BMP 05/12/24 09:51 Sodium 140 Potassium 4.5 Chloride 104 Carbon Dioxide 31 BUN 21 Creatinine 1.37 H D Glucose 176 H Calcium 8.1 L Urine 05/11/24 Range/Units 19:00 Urine Color Yellow Urine Appearance Cloudy A (Clear) Urine pH 5.5 (4.5-7.5) Ur Specific [place] 1.017 (1.000-1.030) Urine Protein Negative (Negative) Urine Glucose (UA) Negative (Negative) Medications Administered Home Medications Medication Instructions Recorded Confirmed Last Taken albuterol sulfate 90 mcg/actuation 2 puff inhalation Q6 PRN Shortness 08/11/23 05/10/24 Unknown aerosol inhaler Of Breath Or Wheezing atorvastatin 40 mg tablet 40 mg PO DAILYBL 08/11/23 05/10/24 05/09/24 baclofen 10 mg tablet 10 mg PO TID 08/11/23 05/10/24 05/10/24 buprenorphine 5 mcg/hour weekly 1 patch topical WK 08/11/23 05/10/24 Unknown transdermal patch dicyclomine 20 mg tablet 20 mg PO HS 08/11/23 05/10/24 05/09/24 escitalopram oxalate 20 mg tablet 20 mg PO DAILY 08/11/23 05/10/24 05/10/24 eszopiclone 2 mg tablet 2 mg PO HS 08/11/23 05/10/24 05/09/24 hydroxyzine HCl 25 mg tablet 25 mg PO TID PRN Anxiety 08/11/23 05/10/24 05/10/24 insulin regular human 100 unit/mL 0 unit continuous subcutaneous 08/11/23 05/10/24 Unknown injection solution (Novolin R infusion DIRECTED Regular U-100 Insulin) loratadine 10 mg tablet 10 mg PO QAM 08/11/23 05/10/24 Unknown magnesium oxide 400 mg PO DAILY 08/11/23 05/10/24 05/10/24 meclizine 25 mg tablet 25 mg PO TID PRN .dizzy 08/11/23 05/10/24 Unknown metformin 1,000 mg tablet 1,000 mg PO DAILY 08/11/23 05/10/24 05/10/24 metoclopramide HCl 5 mg tablet 5 mg PO AC PRN Nausea 08/11/23 05/10/24 Unknown naloxone 4 mg/actuation nasal spray 4 mg intranasal DIRECTED PRN 08/11/23 05/10/24 Unknown opiod od ondansetron 8 mg disintegrating 8 mg translingual Q8 PRN Nausea 08/11/23 05/10/24 Unknown tablet pregabalin 100 mg capsule 100 mg PO TID 08/11/23 05/10/24 05/10/24 trazodone 100 mg tablet 100 - 200 mg PO HS 08/11/23 05/10/24 05/09/24 pantoprazole 40 mg tablet,delayed 40 mg PO DAILY 02/02/24 05/10/24 05/10/24 release atenolol 25 mg tablet 25 mg PO BID #60 tabs 02/04/24 05/10/24 05/10/24 furosemide 40 mg tablet 40 mg PO Q OTHER DAY #0 tabs 02/04/24 05/10/24 05/10/24 potassium chloride 10 mEq 20 meq (2 x 10 mEq) PO DAILY #0 02/04/24 05/10/24 05/10/24 tablet,extended release tabs Active Medications Generic Name Dose Route Start Last Admin Trade Name Freq PRN Reason Stop Dose Admin Acetaminophen 500 mg 05/10/24 23:02 05/12/24 09:01 Acetaminophen 500 Mg Tab PO 06/09/24 23:01 500 mg Q6H PRN Administration fever/pain Atorvastatin Calcium 40 mg 05/11/24 10:30 05/12/24 09:01 Atorvastatin 40 Mg Tab PO 06/10/24 10:29 40 mg DAILYBL MARCIA Administration Baclofen 10 mg 05/12/24 14:00 05/12/24 13:51 Baclofen 10 Mg Tab PO 06/11/24 13:59 10 mg TID MARCIA Administration Escitalopram Oxalate 20 mg 05/11/24 09:00 05/12/24 09:01 Escitalopram Oxalate 20 Mg Tab PO 06/10/24 08:59 20 mg DAILY MARCIA Administration Hydroxyzine HCl 25 mg 05/12/24 12:17 05/12/24 17:12 Hydroxyzine Hcl 25 Mg Tab PO 06/11/24 12:16 25 mg TID PRN Administration Anxiety/Insomnia Insulin Aspart 0 units 05/11/24 01:45 05/12/24 12:59 Insulin Aspart Per Unit Charge SC 06/10/24 00:34 1 units ACHS MARCIA Administration Insulin Glargine 0 units 05/11/24 21:00 05/11/24 20:39 Lantus Per Unit Charge SC 06/10/24 20:59 Not Given HS [facility] Protocol Loratadine 10 mg 05/11/24 09:00 05/12/24 09:01 Loratadine 10 Mg Tab PO 06/10/24 08:59 10 mg QAM MARCIA Administration Pantoprazole Sodium 40 mg 05/11/24 09:00 05/12/24 09:01 Pantoprazole 40 Mg Tab PO 06/10/24 08:59 40 mg DAILY MARCIA Administration Pregabalin 75 mg 05/12/24 14:00 05/12/24 13:51 Pregabalin 75 Mg Cap PO 06/11/24 13:59 75 mg TID MARCIA Administration
[2024-05-12] MEDS: DICYCLOMINE HCL 20 MG TAB PO SCH (20:28)
[2024-05-12] MEDS: ATENOLOL 25 MG TABLET PO SCH (20:28)
[2024-05-12] MEDS: ESZOPICLONE 1 MG TAB PO SCH (21:50)
[2024-05-13 04:18] VITALS: RESP 18; O2SAT 95
--- OUTSIDE RECORDS SUMMARY | 2024-05-13 05:08 | External Medical Summary | Summary of Care ---
Author Name Unknown Organization [facility] Address [address] [facility] [place] [address] Phone [phone] Care Team Providers Care Tinware Lithograph Press Operator Name Role Phone Scott Weldon MD Primary Care Provider + Reason for Visit * Reason Onset Date Comments Test Results Lab 04/18/2024 Encounter Details Date Type Department Care Team (Late st Contact Info) Description 04/18/2024 Telephone Hematology/Oncology [facility] [address] [facility] [place] [phone] Sunil Bourgeois MD [address] [place] [address] Test Results Lab Allergies Active Allergy Reactions Criticality Noted Date Comments Naproxen Sodium Bleeding High 11/29/2013 Pollen 12/03/2022 Seasonal Food (See Comments) Anaphylaxis High 04/20/2019 Hot peppers (oils) Kiwi Extract Anaphylaxis High 04/20/2019 documented as of this encounter (statuses as of 04/21/2024) Medications ONETOUCH ULTRASOFT LANCETS MISCIndications:DM type 2, not [...] 5 02/18/20 17 Active Insulin Infusion Pump (MINIMED 630G INSULIN PUMP) KITIndications:Typ e 2 diabetes mellitus with hemoglobin A1c goal of less than 8.0% ([facility]) Use as directed. 07/30/19 18 Active [...] suspected opioid overdose. Seek immediate medical attention. [email or web address] 1 Each 3 11/28/19 23 Active Loratadine 10 MG Oral Tablet [...] of less than 8.0% ([facility]),DM type 2, not at goal (HCC) INJECT UP TO 200 UNITS SUBCUTANEOSULY ONCE DAILY VIA PUMP 60 mL 05/05/20 23 Active Ondansetron 8 MG Oral Tablet Disintegrating (Zofran) PLACE 1 TABLET ON TONGUE AND DISSOLVE EVERY 8 HOURS NEEDED FOR NAUSEA 30 Tablet 08/10/19 24 Active Meclizine HCl 25 MG Oral Tablet (Antivert)Indicati ons:Vertigo Take 1 Tablet by mouth 3 times a day as needed for Dizziness. 30 Tablet 1 02/03/20 24 Active Atenolol 25 MG Oral Tablet (Tenormin) Take 1 Tablet by mouth in the morning and 1 Tablet before bedtime. Active Potassium Chloride Laura ER 20 MEQ Oral Tablet Extended Release Take 1 Tablet by mouth in the morning. 90 Tablet 3 4 6:06 PM EDT 02/12/20 24 Active Magnesium Oxide -Mg Supplement 400 (240 Mg) MG Oral Tablet (Mag-Ox)Indication s:Hypomagnesemia Take 1 Tablet by mouth in the morning. 90 Tablet 3 4 6:26 PM EDT 02/12/20 24 Active Atorvastatin Calcium 40 MG Oral Tablet (Lipitor)Indicatio ns:Dyslipidemia, goal LDL below 100 Take 1 Tablet by mouth at bedtime. 90 Tablet 3 4 1:51 PM EDT 02/12/20 24 Active Pantoprazole Sodium 40 MG Oral Tablet Delayed Release (Protonix)Indicati ons:Esophageal varices without bleeding, unspecified esophageal varices type (HCC),Colitis Take 1 Tablet by mouth in the morning. 90 Tablet 3 4 5:34 PM EDT 02/12/20 24 Active Pregabalin 100 MG Oral Capsule (Lyrica)Indication s:Bilateral low back pain with sciatica, sciatica laterality unspecified, unspecified chronicity Take 1 Capsule by mouth in the morning and 1 Capsule at noon and 1 Capsule before bedtime. 300 Capsule 1 02/13/20 24 Active metFORMIN HCl 1000 MG Oral Tablet (Glucophage)Indica tions:Type 2 diabetes mellitus with hemoglobin A1c goal of less than 8.0% (HCC) Take 1 Tablet by mouth daily with breakfast. 90 Tablet 3 4 10:37 AM EDT 02/14/20 24 Active Baclofen 10 MG Oral Tablet (Lioresal)Indicati ons:Back spasm Take 1 Tablet by mouth in the morning and 1 Tablet at noon and 1 Tablet before bedtime. 90 Tablet 2 4 4:50 PM EDT 02/18/20 24 Active Furosemide 40 MG Oral Tablet (Lasix) Take 1 Tablet by mouth every other day. 50 Tablet 1 4 3:21 PM EDT 02/19/20 24 Active Empagliflozin 10 MG Oral Tablet (Jardiance)Indicat ions:Type 2 diabetes mellitus with hemoglobin A1c goal of less than 8.0% (HCC) Take 1 Tablet by mouth in the morning. 90 Tablet 3 02/26/20 24 Active Additional Information Patient not taking.Reported on 03/22/2024 Metoclopramide HCl 5 MG Oral Tablet (Reglan) Take 1 Tablet by mouth in the morning and 1 Tablet at noon and 1 Tablet in the evening. Take before meals. If needed for nausea. 300 Tablet 1 4 1:51 PM EDT 02/26/20 24 Active Albuterol Sulfate HFA 108 (90 Base) MCG/ACT Inhalation Aerosol Solution Inhale 2 Puffs by mouth every 6 hours as needed for Shortness of Breath. 18 g 5 4 7:18 AM EDT 03/19/20 24 Active Buprenorphine 5 MCG/HR Transdermal Patch Weekly (Butrans)Indicatio ns:Controlled substance agreement signed,Chronic bilateral low back pain with sciatica, sciatica laterality unspecified,Chroni c pain syndrome Place 1 Patch topically on the skin once a week. 4 Patch 04/05/20 24 Active traZODone HCl 100 MG Oral Tablet (Desyrel) Take 1-2 Tablets by mouth at bedtime. 180 Tablet 1 04/14/20 24 Active Escitalopram Oxalate 20 MG Oral Tablet (Lexapro) Take 1 Tablet by mouth in the morning. 90 Tablet 1 04/14/20 24 Active hydrOXYzine HCl 25 MG Oral Tablet TAKE 1 TABLET BY MOUTH DURING DAY EVERY 4-6 HOURS NEEDED FOR ANXIETY 450 Tablet 1 4 1:53 PM EST 04/14/20 24 Active Eszopiclone 2 MG Oral Tablet (Lunesta) Take 1 Tablet by mouth at bedtime. Do not start before May 04, 2024. 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 08/20/2023 Esophageal varices without bleeding 09/08/2022 Hemiplegia and hemiparesis f ollowing cerebral infarction affecting unspecified side 08/19/2021 Diabetic retinopathy of both eyes without macular edema associated with type 2 diabetes mellitus 02/21/2021 Overview (02/21/2021): Per retinal scan 12/14/2019 History of 2019 novel coronavirus disease (COVID -19) 09/03/2020 Major depressive disorder, recurrent episode, mo derate 07/10/2020 PTSD (post-traumatic stress disorder) 07/10/2020 Iron deficiency anemia 01/11/2020 Diabetes mellitus with background retinopathy Overview (12/24/2019): 2020 telemed images, mild Encounter for venous access device care 12/23/19 Severe obesity (BMI 35.0-39.9) with comorbidity 11/07/2019 Diabetic polyneuropathy asso ciated with type 2 diabetes mellitus 08/24/2019 MICHELLE (generalized anxiety disorder) 06/09/2019 Recurrent major depressive disorder, in partial remission 06/09/2019 Left hemiplegia 10/06/2018 Liver masses 09/02/2018 Overview (09/12/2019): More specific code in use. Thrombocytopenia 07/12/2018 Diabetic gastroparalysis 07/12/2018 Portal hypertension 07/12/2018 Encounter for care related to vascular access po rt 01/21/2018 Overview (10/10/2019): Acute. Gastroparesis 09/10/[address] 05/05/2017 Well adult exam 07/17/2016 Overview (03/30/2024): 03/31 EGD +Grade 2 varices, gastropathy +gastric polyps & endoclips krishna 12-18 mos w/her cirrhosis. Polyps benign. 09/29 colon + polyps PATH benign. 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 Vertigo 02/19/2016 03/14/2023 Breast cancer screening 11/30/2015 05/0 06/2018 Vaginitis 05/18/2015 05/21/2016 Vaginitis 10/18/2014 01/24/2015 Vaginitis 09/18/2014 01/24/2015 Vaginitis 05/16/2014 09/15/2014 Vaginitis 04/12/2014 09/15/2014 Vaginitis 02/02/2014 09/15/2014 Weakness 10/26/2013 09/15/2014 Bipolar disorder 08/29/2013 06/09/2019 Overview (06/25/2017): On Seroquel for years, meds here, prior [place] Palpitations 08/29/2013 09/15/2014 Malaise and fatigue 11/07/2012 09/16/19 15 Type 2 diabetes, HbA1c goal < 7% 11/04/2012 09/15/2014 Arthralgia of multiple joints 10/13/2012 01/24/2015 Abdominal pain, generalized 09/08/2012 05/06/2016 Ascites 09/08/2012 09/15/2014 Other psychological or physi eduardo stress, not elsewhere classified 08/19/2012 03/22/2013 Benign neoplasm of stomach 07/27/2012 0 09/15/2014 Overview (08/05/2012): fundic polyp-repeat EGD in 1 yr Reflux 07/27/2012 09/15/2014 Stroke 06/08/2012 02/05/2024 Overview (02/05/2024): 02/18/23 Hem/Onc note "-history of CV stroke, left sided weakness, 2012, ambulates with the help of the cane." Lymphadenitis, unspecified, except mesenteric 05/14/20 12 10/06/2018 Pain of upper abdomen 03/03/20122018 Vaginitis 01/23/2012 09/15/2014 Vaginitis 09/18/2011 01/23/2012 OBSTIPATION 04/11/2011 09/15/2014 Dyslipidemia, goal LDL below 70 04/11/2011 05/13/2011 Need for vaccination for viral hepatitis 03/26/2011 08/19/2012 Type 2 diabetes mellitus wit h hemoglobin A1c goal of less than 7.0% 01/28/2011 03/22/2013 Overview (10/02/2015): ICD-10 update of inactive term Abnormal results of liver function studies 01/22/2011 09/12/2019 Overview (09/12/2019): Acute. Abdominal pain 01/21/2011 08/19/2012 OBESITY, BMI= 35.49 12/30/10 12/30/2010 08/19/2012 OBSTIPATION 12/30/2010 03/22/2013 Edema 12/30/2010 09/12/2019 Overview (09/12/2019): Acute. Steatohepatitis, non-alcoholic 08/28/2010 09/15/2014 OBESITY, BMI= [...] .9, isolated (see actual BMI) 09/03/2009 02/25/2010 Overview (09/03/2009): Per Obesity Taxonomy Acute bronchitis, antibiotics not [...] 08/19/2012 Overweight (BMI 25.0-29.9) 09/26/2008 0 09/03/2009 Overview (09/03/2009): Per Obesity Taxonomy Coronary atherosclerosis of [place] coronary artery 09/15/2008 10/03/2008 Malaise and fatigue 09/15/2008 08/20/19 13 Dyslipidemia, goal to be determined 09/15/2008 02/25/2010 Chest pain 09/15/2008 08/19/2012 HTN, goal below 140/90 09/15/200802/25 Migraine with aura, intractable 08/24/2008 08/19/2012 Family history of ischemic heart disease 06/30/2008 08/19/2012 Acute URI 05/30/2008 06/30/2008 Cough 05/30/2008 06/30/2008 Syncope and collapse 05/12/2008 010 ADVANCE DIRECTIVE INFORMATION 02/28/2005 09/12/2019 Overview (09/12/2019): no advance directive- info given Historical. ADV EFF MED-BIOL SUB NOS 07/02/2001 Major depressive disorder 07/02/2001 Overview (03/31/2017): ICD-10 update of inactive term Insomnia 07/02/2001 07/05/2015 Overview (03/09/2017): ICD-10 update of inactive term ANXIETY STATE NOS 07/02/2001 09/15/2014 Headache 07/02/2001 09/15/2014 Overview (08/29/2015): ICD-10 update of inactive term ACUTE CYSTITIS 01/06/2001 10/02/2003 Candidal vulvovaginitis 01/06/200109/07 Constipation 09/02/2000 08/29/2013 Overview (08/30/2015): ICD-10 update of inactive term ACUTE BRONCHITIS 07/04/1999 10/02/2003 Dyslipidemia, goal LDL below 100 03/06/2010 ASCVD 01/24/2015 Other specified disorders of liver 12/30/2010 Overview (03/12/2010): fatty liver Kidney stone 09/15/2014 Overview (05/14/2012): x 2 documented as of this encounter (statuses as of 04/21/2024) Immunizations Name Administration Dates Next Due COVID-19 mRNA, LNP-s, No Pre serve, 2-Dose Series ([employer]) 11/08/2020,10/11/2020 HEP A - Hepatitis A (Adult > 18 yrs) 04/11/2011, 09/20/2010 Hepatitis B, 20+ yrs 07/05/2015 Pneumococcal Conjugate Vacci ne, 20-valent ([id number]) 03/13/2023 Pneumococcal Polysaccharide PPV23 (Pneumovax) 02/19/2018,03/09/2007 Seasonal Influenza Vac., MDV , IM, 0.5 mL (Fluzone) 06/22/2014,03/03/2013,04/09/2012,04/11,02/25/2010,02/19/2009,05/17/2008 ,03/09/2007 Seasonal Influenza, PF, 6 M & above, IM , (FluLaval or Fluzone) 03/13/2023,03/01/2021,02/28/2020,03/09,02/19/2018,03/02/2017 Seasonal Influenza, Quadriva lent, No Preserve, IM 03/20/2016,07/05/2015 TDAP (age 10 and older)(Boostrix) 08/05/2018 TDAP, [...] ages 0-17 years) Not on file 10/07/2023 Comments No Sex and Gender Information Value Date Recorded Sex Assigned at Female 05/08/2020 7:03 PM EST Legal Sex Female 6:04 AM EST Gender Identity Female 05/08/2020 7:03 PM EST Sexual Orientation Straight 10/26/2019 3: 40 PM EDT Occupation Industry Job Start Date Job End Date unemployed Not on file Not on file Not on file documented as of this encounter Functional Status * Are you deaf or do you have serious difficulty hearing? Answer Date of Assessment Author No 04/20/2019 10:25 AM EST Venhuize Teresa noel LPN * Are you blind or do you have serious difficulty seeing, even when wearing glasses? Answer Date of Assessment Author No 04/20/2019 10:25 AM EST Naunhuize Teresa noel LPN * Do you have serious difficulty walking or climbing stairs? (5 years old or older) Answer Date of Assessment Author Yes 04/20/2019 10:25 AM EST Naunhuize Teresa noel LPN * Do you have difficulty dressing or bathing? (5 years old or older) Answer Date of Assessment Author No 04/20/2019 10:25 AM EST Venhuize Teresa noel LPN * Because of a physical, mental, or emotional condition, do you have difficulty doing errands alone such as visiting a doctors office or shopping? (15 years old or older) Answer Date of Assessment Author Yes 04/20/2019 10:25 AM EST Venhuize Teresa noel LPN documented as of this encounter Mental Status * Because of a physical, mental, or emotional condition, do you have serious difficulty concentrating, remembering, or making decisions? (5 years old or older) Answer Entry Date Author No 04/20/2019 10:25 AM EST Venhuize Teresa noel LPN documented in this encounter Miscellaneous Notes * Telephone Encounter - Tamera Henry RN - 04/21/2024 1:51 PM EST Patient is due 05/13/24 for 2 hour appt "lashawn " (Bourgeois). Thanks! * Telephone Encounter - Alla Casas OSA - 04/21/2024 1:09 PM EST Pt calling in to schedule her iron treatment om May, please advise. * Telephone Encounter - Jaja Murray LPN - 04/18/2024 10:28 AM EST My G sent. * Telephone Encounter - Jaja Murray LPN - 04/18/2024 10:20 AM EST ----- Message from Sunil Bourgeois MD sent at 04/17/2024 11:12 AM EST ----- Blood workup done on 04/15/2024: -WBC 4100, Hemoglobin and hematocrit -35.4, [place] [address]. -Ferritin level--> 117 -Serum iron: 80, TIBC 329, iron saturation 24%. Overall stable hemoglobin level. She has a case of cirrhosis of liver, portal hypertension, splenomegaly. Ordered IV iron in the form of Venofer every monthly on 04/21/2024. Last IV iron received on 04/15/2024. Will continue every monthly IV iron therapy. Will check every monthly CBCD, Ferritin, iron profile. documented in this encounter Plan of Treatment Upcoming Encounters Date Type Department Care Team (Late st Contact Info) Description 04/28/2024 11:00 AM EST Telemedicine Pharmacy, [facility] [address] [place] [address] [facility] [address] [facility] [place] [address] 05/10/2024 4:00 PM EST Office Visit Nephrology, [facility] [address] [place] [address] Jonathan Mathew MD [address] [place] [address] 05/12/2024 8:00 AM EST [facility] [address] [facility] [place] [phone] 05/16/2024 1:00 PM EST Office Visit Pharmacy, [place] [address] [facility], [place] [address] [place], [facility] [address] [facility], [place] [address] 06/30/2024 8:00 AM EST Office Visit Family Practice [facility] [address] [facility] [place] [address] Scott Weldon MD [address] [place] [address] 06/30/2024 1:20 PM EST Office Visit Hepatology, [facility] [address] [facility] [place] [address] Jazzy Chu DO [address] [facility] [address] 07/07/2024 9:30 AM EST Telemedicine Psychiatry [place] [address] [place] [phone] Nhi Fritz CRNP [address] [place] [address] 07/08/2024 10:30 AM EST Telemedicine Gastroenterology, [facility] [address] [facility] [place] [address] Adam Bradshaw CRNP [address] [place] [address] 09/14/2024 2:00 PM EDT Office Visit Hematology/Oncology [facility] [address] [facility] [place], [place] [phone] Sunil Bourgeois MD [address] [facility] [place], [place] [address] 12/14/2024 12:20 PM EDT Office Visit Family [facility] [address] [place] [address] Scott Weldon MD [address] [place] [address] Scheduled Procedures Name Priority Associated Diagnoses Date/Ti me ESOPHAGOGASTRODUODENOSCOPY ( EGD), FLEXIBLE, TRANSORAL, DIAGNOSTIC Recall Gastric polyps Esophageal varices (HCC) COLONOSCOPY FLEXIBLE PROXIMAL DIAGNOSTIC Recall History of colonic polyps Health Maintenance Due Date Last Done Comments Cologuard 2017 Fecal Occult Blood Test 2017 Sigmoidoscopy 2017 COVID-19 Vaccine ( season) 2024 11/08/2020, 10/11/2020 Influenza Vaccine (FLU shot) (#1) 2024 03/13/2023, 03/01/2021, 02/28/2020, Additional history exists Depression Monitoring 03/13/2024 03/13/2023 Diabetic Foot Exam 03/13/2024 03/13/2023, 0 10/03/2021, 11/07/2019, Additional history exists HbA1c 05/14/2024 11/13/2023, 07/09, 02/18/2023, Additional history exists Albumin/Creatinine Ratio 07/23/20242 024, 04/06/2023, 03/11/2022, Additional history exists Mammogram 09/01/2024 09/02/2023, 04/10, 01/21/2016 B-12 09/07/2024 09/08/2023, 0 09/2022, 06/14/2020, Additional history exists GFR 03/10/2025 03/10/2024, 10/2023, 02/03/2024, Additional history exists Diabetic Eye Exam 03/24/2025 03/24/2024, , 03/24/2024, Additional history exists Pap Smear 09/07/2026 09/08/2023, 10/2014, 04/12/2015, Additional history exists Lipid Panel 07/23/2028 07/23/2023, 09/2021, 12/12/2019, Additional history exists DTap/Tdap Vaccines (3 - Td or Tdap) 08/05/2028 [...] this encounter Medical Devices Implanted Type Area Laborer Shellfish Processing Device Identifier Shelf Expiration Date Model / Serial / Lot Neurostimul Intellis Adaptiv - [id number] - [id number] Implanted:Qty: 1 on 08/22/2022 by Rafia Small MD at OR [facility] N/A: Spine Lumbar [employer] 06/21/2023 [id number] / [id number] / Description:battery Medtronic Lead Kit 60 Cm Implanted:Qty: 1 on 08/22/2022 by Rafia Small MD at OR [facility] N/A: Spine Lumbar 02/01/2026 [id number] / / [id number] Medtronic Lead Kit 60cm Implanted:Qty: 1 on 08/22/2022 by Rafia Small MD at OR [facility] N/A: Spine Lumbar 03/21/2026 [id number] / / [id number] Envelope Tyrx Med Antibacteril - [id number] Implanted:Qty: 1 on 08/22/2022 by Rafia Small MD at OR [facility] N/A: Spine Lumbar [employer] 03/10/2023 [id number] / / [id number] Hemostatic Clip Res 235cm - [id number] Implanted:Qty: 4 on 10/05/2023 by Aj Pruett DO at ENDOSCOPY [facility]COPY 02/03/2026 [id number] / / Hemostatic Clip Res 235cm - [id number] Implanted:Qty: 1 on 10/05/2023 by Aj Pruett DO at ENDOSCOPY [facility] [employer] : ENDOSCOPY 02/02/2026 [id number] / / documented as of this encounter [...] Power of Attor narda? No Care Teams Tinware Lithograph Press Operator Relationship Specialty Start Date End Date Scott Weldon MD [address] [place] [address] PCP - General Family Medicine 08/03/18 documented as of this encounter
--- OUTSIDE RECORDS SUMMARY | 2024-05-13 05:08 | External Medical Summary | Summary of Care ---
Author Name Unknown Organization [facility] Address [address] [facility] [place] [address] Phone [phone] Care Team Providers Care Communication Instructor Name Role Phone Scott Weldon MD Primary Care Provider + Reason for Visit * Reason Onset Date Comments Test Results Lab 04/18/2024 Encounter Details Date Type Department Care Team (Late st Contact Info) Description 04/18/2024 Telephone Hematology/Oncology [facility] 200 [facility] [place] [address] Sunil Bourgeois MD 200 [facility] [place] [address] Test Results Lab Allergies Active Allergy Reactions [...] 8.0% ([facility]) Use as directed. 07/30/19 18 [...] suspected opioid overdose. Seek immediate medical attention. [email or web address]://[email or web address]?v=[email or web address] 1 Each 3 11/28/19 23 Active Loratadine [...] goal of less than 8.0% ([facility]),DM type 2, not at goal [...] (09/03/2009): Per Obesity Taxonomy Coronary atherosclerosis of [place] [...] mRNA, LNP-s, No Pre serve, 2-Dose Series ([employer]) 11/08/2020,10/11/2020 HEP A - Hepatitis A (Adult > 18 yrs) 04/11/2011, 09/20/2010 Hepatitis B, 20+ yrs 07/05/2015 Pneumococcal Conjugate Vacci ne, 20-valent ([id number]) 03/13/2023 Pneumococcal Polysaccharide PPV23 (Pneumovax) 02/19/2018,03/09/2007 Seasonal [...] of Assessment Author No 04/20/2019 10:25 AM Teresa Gonzalez LPN * Do you have serious difficulty walking or climbing stairs? (5 years old or older) Answer Date of Assessment Author Yes 04/20/2019 10:25 AM Teresa Gonzalez LPN * Do you have difficulty dressing [...] Assessment Author Yes 04/20/2019 10:25 AM EST CathyhuTeresa cifuentes LPN documented as of this encounter Mental Status * Because of a physical, mental, or emotional condition, do you have serious difficulty concentrating, remembering, or making decisions? (5 years old or older) Answer Entry Date Author No 04/20/2019 10:25 AM EST Venhuize Teresa noel LPN documented in this encounter Miscellaneous Notes * Telephone Encounter - Jazzy Hogan OSA - 04/21/2024 1:53 PM EST Pt is scheduled and aware * Telephone Encounter - Tamera Henry RN - 04/21/2024 1:51 PM EST Patient is due 05/13/24 for 2 hour appt "cathyofer " (Bk). Thanks! * Telephone Encounter - Alla Casas [...] Hemoglobin and hematocrit -35.4, [place] [address]. -Ferritin level--> 117 -Serum iron: 80, TIBC [...] Description 04/28/2024 11:00 AM EST Telemedicine Pharmacy, [facility] 132 [facility] [place] [address] [facility] 132 [facility] [place] [address] 05/10/2024 4:00 PM EST Office Visit Nephrology, [facility] [address] [place] [address] Jonathan Mathew MD [address] [place] [address] 05/12/2024 8:00 AM EST Imaging [facility] 2nd Floor Cardiology, [place] 132 [facility] [place] [phone] 05/13/2024 2:00 PM EST Hem/Onc Treatment Hematology/Oncology Treatment, [place] [address] [place] [phone] Nora, Chair 6 Hem Onc [address] [place] [address] 05/16/2024 1:00 PM EST Office Visit Pharmacy, [place] [address] [place] [address] [facility] [address] [place] [address] 06/30/2024 8:00 AM EST Office Visit Family Practice [facility] [address] [place] [address] Scott Weldon MD 132 [facility] [place] [address] 06/30/2024 1:20 PM EST Office Visit Hepatology, [facility] [address] [place] [address] Jazzy Chu DO [address] [place] [address] 07/07/2024 9:30 AM EST Telemedicine Psychiatry [facility] [place] [address] [place] [phone] Nhi Fritz CRNP [address] [place] [address] 07/08/2024 10:30 AM EST Telemedicine Gastroenterology, [facility] 132 [facility] [place] [address] Adam Bradshaw CRNP 132 [facility] [address] 09/14/2024 2:00 PM EDT Office Visit Hematology/Oncology [facility] 200 [facility] [place] [phone] Sunil Bourgeois MD 200 [facility] [address] 12/14/2024 12:20 PM EDT Office Visit Family Practice [facility] 132 [facility] [place] [address] Scott Weldon MD 132 [facility] [place] [address] Scheduled Procedures Name Priority Associated Diagnoses Date/Ti [...] 09/08/2023, 09/2022, 06/14/2020, Additional history exists GFR 03/10/2025 [...] this encounter Medical Devices Implanted Type Area Catering Assistant Device Identifier Shelf Expiration Date Model / Serial / Lot Neurostimul Intellis Adaptiv - [id number] - [id number] Implanted:Qty: 1 on 08/22/2022 by Rafia Small MD at OR [facility] N/A: Spine Lumbar [employer] 06/21/2023 [id number] / [id number] / Description:battery Medtronic Lead Kit 60 Cm Implanted:Qty: 1 on 08/22/2022 by Rafia Small MD at OR [facility] N/A: Spine Lumbar 02/01/2026 [id number] / / [id number] Medtronic Lead Kit 60cm Implanted:Qty: 1 on 08/22/2022 by Rafia Small MD at OR [facility] N/A: Spine Lumbar 03/21/2026 [id number] / / [id number] Envelope Tyrx Med Antibacteril - [id number] Implanted:Qty: 1 on 08/22/2022 by Rafia Small MD at OR [facility] N/A: Spine Lumbar [employer] 03/10/2023 [id number] / / [id number] Hemostatic Clip Res 235cm - [id number] Implanted:Qty: 4 on 10/05/2023 by Aj Pruett DO at [facility] END[facility]COPY 02/03/2026 [id number] / / Hemostatic Clip Res 235cm - [id number] Implanted:Qty: 1 on 10/05/2023 by Aj Pruett DO at [facility] : ENDOSCOPY 02/02/2026 [id number] / / documented as of this encounter [...] Power of Attor narda? No Care Teams Communication Instructor Relationship Specialty Start Date End Date Scott Weldon MD [address] [place] [address] PCP - General Family Medicine 08/03/18 documented as of this encounter
--- OUTSIDE RECORDS SUMMARY | 2024-05-13 05:08 | External Medical Summary | Summary of Care ---
Author Name Unknown Organization [facility] Address [address] [facility] [place] [address] Phone [phone] Care Team Providers Care Transfer Pumper Name Role Phone Scott Weldon MD Primary Care Provider + Reason for Visit * Reason Onset Date Comments Medication Refill 05/03/2024 Encounter Details Date Type Department Care Team (Late st Contact Info) Description 05/03/2024 Refill Family Practice [facility] 132 [facility] [place] [address] Scott Weldon MD 132 [facility] [place] [address] Controlled substance agreement signed; Chronic bilateral low back pain with sciatica, sciatica laterality unspecified; Chronic pain syndrome Allergies Active Allergy Reactions Criticality Noted Date Comments Naproxen Sodium Bleeding High 11/29/2013 Pollen 12/03/2022 Seasonal Food (See Comments) Anaphylaxis High 04/20/2019 Hot peppers (oils) Kiwi Extract Anaphylaxis High 04/20/2019 documented as of this encounter (statuses as of 05/04/2024) Medications ONETOUCH ULTRASOFT LANCETS MISCIndications:DM type 2, [...] 5 02/18/20 17 Active Insulin Infusion Pump (MINIMAppDirect 630G INSULIN PUMP) KITIndications:Typ e 2 diabetes mellitus with hemoglobin A1c goal of less than 8.0% ([facility]) Use as directed. 07/30/19 18 Active [...] suspected opioid overdose. Seek immediate medical attention. https://[email or web address] [email or web address]/watch?v=[email or web address] 1 Each 3 11/28/19 23 Active Loratadine [...] 1 Capsule before bedtime. 300 Capsule 1 4 4:07 PM EST 02/13/20 24 Active metFORMIN HCl 1000 MG [...] 8.0% ([facility]) Take 1 Tablet by mouth in the morning. 90 Tablet 3 02/26/20 24 Active Additional Information Patient not taking.Reported on 03/22/2024 Metoclopramide HCl 5 MG Oral Tablet (Reglan) Take 1 Tablet by mouth in the morning and 1 Tablet at noon and 1 Tablet in the evening. Take before meals. If needed for nausea. 300 Tablet 1 4 1:51 PM EDT 02/26/20 Active Albuterol Sulfate HFA 108 (90 Base) MCG/ACT Inhalation Aerosol Solution Inhale 2 Puffs by mouth every 6 hours as needed for Shortness of Breath. 18 g 5 4 7:18 AM EDT 03/19/20 Active traZODone HCl 100 MG Oral Tablet [...] before May 04, 2024. 30 Tablet 2 4 9:24 AM EST 05/04/20 Active Buprenorphine 5 MCG/HR Transdermal Patch Weekly (Butrans)Indicatio ns:Controlled substance agreement signed,Chronic bilateral low back pain with sciatica, sciatica laterality unspecified,Chroni c pain syndrome Place 1 Patch topically on the skin once a week. 4 Patch 05/04/20 24 Active documented as of this encounter (statuses as of 05/04/2024) Active Problems Problem Noted Date Diagnosed Date [...] as of this encounter (statuses as of 05/04/2024) Resolved Problems Problem Noted Date Diagnosed Date [...] (09/03/2009): Per Obesity Taxonomy Coronary atherosclerosis of [place] coronary artery 09/15/2008 10/03/2008 Malaise and fatigue [...] as of this encounter (statuses as of 05/04/2024) Immunizations Name Administration Dates Next Due COVID-19 mRNA, LNP-s, No Pre serve, 2-Dose Series (CONSTRVCT) 11/08/2020,10/11/2020 HEP A - Hepatitis A (Adult > 18 yrs) 04/11/2011, 09/20/2010 Hepatitis B, 20+ yrs 07/05/2015 Pneumococcal Conjugate Vacci ne, 20-valent (Vredawj32) 03/13/2023 Pneumococcal Polysaccharide PPV23 (Pneumovax) 02/19/2018,03/09/2007 Seasonal [...] 04/20/2019 10:25 AM Teresa Gonzalez LPN * Are you blind or do [...] 04/20/2019 10:25 AM Teresa Gonzalez LPN * Because of a physical, mental, or emotional condition, do you have difficulty doing errands alone such as visiting a doctors office or shopping? (15 years old or older) Answer Date of Assessment Author Yes 04/20/2019 10:25 AM Teresa Gonzalez LPN documented as of this encounter Mental Status * Because of a physical, mental, or emotional condition, do you have serious difficulty concentrating, remembering, or making decisions? (5 years old or older) Answer Entry Date Author No 04/20/2019 10:25 AM Teresa Gonzalez LPN documented in this encounter Miscellaneous Notes * Telephone Encounter - Christo Trinidad [facility] - 05/04/2024 1:52 PM ESTRefused Prescriptions: Disp Refills Buprenorphine 5 MCG/HR Transdermal Patch W*4 Patch0 Sig: Place1 Patch topically on the skin once a week.Refused By: CHRISTO TRINIDAD for Refusal: Duplicate Request documented in this encounter Plan of Treatment Upcoming Encounters Date Type Department Care Team (Late st Contact Info) Description 05/10/2024 4:00 PM EST Office Visit Nephrology, [facility] [place] [address] [place] [address] Jonathan Mathew MD [address] [facility] [place] [address] 05/12/2024 8:00 AM EST Imaging [facility] 2nd Floor Cardiology, [address] [phone] 05/13/2024 2:00 PM EST Hem/Onc Treatment Hematology/Oncology Treatment, [place] 200 [facility], [place] [phone] Nora, Chair 6 Hem On[address] [place] [address] 05/16/2024 1:00 PM EST Office Visit Pharmacy, [facility] [phone] [address] [place] [address] 06/16/2024 8:30 AM EST Telemedicine Pharmacy, [facility] [address] [address] [address] 06/30/2024 8:00 AM EST Office Visit [facility] 132 [facility] [place] [address] Scott Weldon MD [address] [place] [address] 06/30/2024 1:20 PM EST Office Visit Hepatology, [facility] 132 [facility] [place] [address] Jazzy Chu DO [facility] [place] [address] 07/07/2024 9:30 AM EST Telemedicine Psychiatry [address] [phone] Nhi Fritz CRNP [address] [place] [address] 07/08/2024 10:30 AM EST Telemedicine Gastroenterology, [facility] 132 [facility] [place] [address] Adam Bradshaw CRNP 132 [facility] [place] [address] 09/14/2024 2:00 PM EDT Office Visit Hematology/Oncology [facility] 200 [facility] [place] [phone] Sunil Bourgeois MD [address] [facility] [place] [address] 12/14/2024 12:20 PM EDT Office Visit [facility] [place] [address] Scott Weldon MD 132 [facility] [place] [address] Scheduled Procedures Name Priority Associated Diagnoses Date/Ti [...] 02/03/2024, Additional history exists Diabetic Eye Exam 04/20/2025 04/20/2024, , 03/24/2024, Additional history exists Pap Smear 09/07/2026 09/08/2023, 0 10/2014, 04/12/2015, Additional history exists Lipid Panel [...] encounter Medical Devices Implanted Type Area Middleware Systems Architect Device Identifier Shelf Expiration Date Model / Serial / Lot Neurostimul Intellis Adaptiv - [id number] - [id number] Implanted:Qty: 1 on 08/22/2022 by Rafia Small MD at OR [facility] N/A: Spine Lumbar [employer] 06/21/2023 [id number] / [id number] / Description:battery Medtronic Lead Kit 60 Cm Implanted:Qty: 1 on 08/22/2022 by Rafia Small MD at OR [facility] N/A: Spine Lumbar 02/01/2026 [id number] / / [id number] Medtronic Lead Kit 60cm Implanted:Qty: 1 on 08/22/2022 by Rafia Small MD at OR [facility] N/A: Spine Lumbar 03/21/2026 [id number] / / [id number] Envelope Tyrx Med Antibacteril - [id number] Implanted:Qty: 1 on 08/22/2022 by Rafia Small MD at OR [facility] N/A: Spine Lumbar [employer] 03/10/2023 [id number] / / [id number] Hemostatic Clip Res 235cm - [id number] Implanted:Qty: 4 on 10/05/2023 by Aj Pruett DO at ENDOSCOPY [facility] : ENDOSCOPY 02/03/2026 [id number] / / Hemostatic Clip Res 235cm - [id number] Implanted:Qty: 1 on 10/05/2023 by Aj Pruett, DO at ENDOSCOPY [facility] : ENDOSCOPY 02/02/2026 [id number] / / documented as of this encounter Visit Diagnoses Diagnosis Controlled substance agreement signed Encounter for long-term (current) use of other medications Chronic bilateral low back pain with sciatica, sciatica laterality unspecified Chronic pain syndrome documented in this encounter Advance Directives * [...] Power of Attor narda? No Care Teams Transfer Pumper Relationship Specialty Start Date End Date Scott Weldon MD 132 [place] [address] PCP - General Family Medicine 08/03/18 documented as of this encounter
--- OUTSIDE RECORDS SUMMARY | 2024-05-13 05:08 | External Medical Summary | Summary of Care ---
Author Name Unknown Organization [facility] Address [address] [facility] [place] [address] Phone [phone] Care Team Providers Care Chemical Research Technician Name Role Phone Scott Weldon MD Primary Care Provider + Reason for Visit * Reason Onset Date Comments Test Results Lab 04/18/2024 Encounter Details Date Type Department Care Team (Late st Contact Info) Description 04/18/2024 Telephone Hematology/Oncology [facility] 200 [facility] [place] [phone] Sunil Bourgeois MD 200 [place] [address] Test Results Lab Allergies Active Allergy Reactions [...] [facility]) Use as directed. 07/30/19 [...] suspected opioid overdose. Seek immediate medical attention. [email or web address]://[email or web address]?v=[email or web address] 1 Each 3 11/28/19 23 Active Loratadine [...] (09/03/2009): Per Obesity Taxonomy Coronary atherosclerosis of [place] coronary artery 09/15/2008 10/03/2008 Malaise and [...] mRNA, LNP-s, No Pre serve, 2-Dose Series (Microarrays) 11/08/2020,10/11/2020 HEP A - Hepatitis A (Adult > 18 yrs) 04/11/2011, 09/20/2010 Hepatitis B, 20+ yrs 07/05/2015 Pneumococcal Conjugate Vacci ne, 20-valent (Cbdionr52) 03/13/2023 Pneumococcal Polysaccharide PPV23 (Pneumovax) 02/19/2018,03/09/2007 Seasonal [...] of Assessment Author No 04/20/2019 10:25 AM JOANIE VenTeresa gillette LPN * Are you blind or do [...] Assessment Author No 04/20/2019 10:25 AM EST VenhuTeresa cifuentes LPN * Because of a physical, mental, [...] Date Author No 04/20/2019 10:25 AM EST Teresa Moore LPN documented in this encounter Miscellaneous Notes * Telephone Encounter - Alla Casas OSA [...] Hemoglobin and hematocrit -35.4, [place] [address]. -Ferritin level--> 117 -Serum iron: 80, TIBC [...] Description 04/28/2024 11:00 AM EST Telemedicine Pharmacy, [address] [place] [address] [facility] [address] [place] [address] 05/10/2024 4:00 PM EST Office Visit Nephrology, [facility] [address] [place] [address] Jonathan Mathew MD [address] [place] [address] 05/12/2024 8:00 AM EST Imaging [facility] 2nd Floor Cardiology, [address] [place] [phone] 05/16/2024 1:00 PM EST Office Visit Pharmacy[address] [place] [address] Jayesh [facility] [address] [facility] [address] 06/30/2024 8:00 AM EST Office Visit [facility] [address] [facility] [place] [address] Scott Weldon MD [address] [facility] [place] [address] 06/30/2024 1:20 PM EST Office Visit Hepatology, [facility] [address] [facility] [place] [address] Jazzy Chu DO [address] [facility] [place] [address] 07/07/2024 9:30 AM EST Telemedicine Psychiatry [facility] 9 [place] [phone] Nhi Fritz CRNP [address] [place] [address] 07/08/2024 10:30 AM EST Telemedicine Gastroenterology, [facility] [address] [facility] [place] [address] Adam Bradshaw CRNP [address] [facility] [place] [address] 09/14/2024 2:00 PM EDT Office Visit Hematology/Oncology [facility] [place] [address] [place] [phone] Sunil Bourgeois MD [address] [place] [address] 12/14/2024 12:20 PM EDT Office Visit [facility] [address] [place] [address] Scott Weldon MD [address] [place] [address] Scheduled Procedures Name Priority Associated Diagnoses Date/Ti [...] 06/14/2020, Additional history exists GFR 03/10/2025 03/10/2024, 0 10/2023, 02/03/2024, Additional history exists Diabetic Eye [...] this encounter Medical Devices Implanted Type Area Financial Auditor Device Identifier Shelf Expiration Date Model / Serial / Lot Neurostimul Intellis Adaptiv - [id number] - [id number] Implanted:Qty: 1 on 08/22/2022 by Rafia Small MD at OR [facility] N/A: Spine Lumbar [employer] 06/21/2023 [id number] / [id number] / Description:battery Medtronic Lead Kit 60 Cm Implanted:Qty: 1 on 08/22/2022 by Rafia Small MD at OR [facility] N/A: Spine Lumbar 02/01/2026 [id number] / / [id number] Medtronic Lead Kit 60cm Implanted:Qty: 1 on 08/22/2022 by Rafia Small MD at OR [facility] N/A: Spine Lumbar 03/21/2026 [id number] / / [id number] Envelope Tyrx Med Antibacteril - [id number] Implanted:Qty: 1 on 08/22/2022 by Rafia Small MD at OR [facility] N/A: Spine Lumbar [employer] 03/10/2023 [id number] / / [id number] Hemostatic Clip Res 235cm - [id number] Implanted:Qty: 4 on 10/05/2023 by Aj Pruett, DO at [facility] 02/03/2026 [id number] / / Hemostatic Clip Res 235cm - [id number] Implanted:Qty: 1 on 10/05/2023 by Aj Pruett, DO at [facility] : ENDOSCOPY 02/02/2026 [id number] / / documented as of this encounter [...] Power of Attor narda? No Care Teams Chemical Research Technician Relationship Specialty Start Date End Date Scott Weldon MD [address] [place] [address] PCP - General Family Medicine 08/03/18 documented as of this encounter
--- OUTSIDE RECORDS SUMMARY | 2024-05-13 05:08 | External Medical Summary | Summary of Care ---
Author Name Unknown Organization [facility] Address [address] [facility] [address] Phone [phone] Care Team Providers Care Ergonomics Technician Name Role Phone Scott Montoya MD Primary Care Provider + Reason for Visit * Reason Onset Date Comments Medication Refill 05/01/2024 Encounter Details Date Type Department Care Team (Late st Contact Info) Description 05/01/2024 Refill Family Practice [facility] 132 [facility] [place] [address] Scott Montoya MD 132 [facility] [place] [address] Controlled substance agreement signed; Chronic bilateral low back pain with sciatica, sciatica laterality unspecified; Chronic pain syndrome Allergies Active Allergy Reactions Criticality Noted Date Comments Naproxen Sodium Bleeding High 11/29/2013 Pollen 12/03/2022 Seasonal Food (See Comments) Anaphylaxis High 04/20/2019 Hot peppers (oils) Kiwi Extract Anaphylaxis High 04/20/2019 documented as of this encounter (statuses as of 05/04/2024) Medications ONETOUCH ULTRASOFT LANCETS MISCIndications:D M type 2, not at goal (HCC) check [...] 5 02/18/20 17 Active Insulin Infusion Pump (MINIMGoojet 630G INSULIN PUMP) KITIndications:Ty pe 2 diabetes mellitus with hemoglobin A1c goal of less than 8.0% ([facility]) Use as directed. 07/30/19 18 Active CPAP every night at bedtime. Active Glucagon Emergency 1 MG Injection Kit As directed 1 Kit 3 09/05/19 23 Active Dicyclomine HCl 20 MG Oral Tablet (Bentyl) Take 1 Tablet by mouth 2 times a day as needed for Pain or Cramping. 180 Tablet 3 11/15/19 23 Active Naloxone HCl 4 MG/0.1ML Nasal Liquid (Narcan Nasal)Indications :Controlled substance agreement signed,Chronic pain syndrome Administer 1 spray into 1 nostril for suspected opioid overdose. Seek immediate medical attention. [email or web address]://[email or web address] [email or web address]/watch?v=[email or web address] 1 Each 3 11/28/19 23 Active Loratadine 10 MG Oral Tablet (Claritin)Indicat ions:Allergic rhinitis TAKE 1 TABLET BY MOUTH IN THE MORNING FOR ALLERGIES. 90 Tablet 1 04/13/20 23 Active Additional Information Patient taking differently:10 mg Oral Daily(AM), For allergies.,Indications: as needed, Reported on 10/01/2023 NovoLIN R ReliOn 100 UNIT/ML Injection Solution (insulin REGULAR human)Indications :Type 2 diabetes mellitus with hemoglobin A1c [...] Active Meclizine HCl 25 MG Oral Tablet (Antivert)Indicat ions:Vertigo Take 1 Tablet by mouth 3 times [...] Supplement 400 (240 Mg) MG Oral Tablet (Mag-Ox)Indicatio ns:Hypomagnesemia Take 1 Tablet by mouth in the morning. 90 Tablet 3 4 6:26 PM EDT 02/12/20 24 Active Atorvastatin Calcium 40 MG Oral Tablet (Lipitor)Indicati ons:Dyslipidemia, goal LDL below 100 Take 1 Tablet by mouth at bedtime. 90 Tablet 3 4 1:51 PM EDT 02/12/20 24 Active Pantoprazole Sodium 40 MG Oral Tablet Delayed Release (Protonix)Indicat ions:Esophageal varices without bleeding, unspecified esophageal varices type (HCC),Colitis Take 1 Tablet by mouth in the morning. 90 Tablet 3 4 5:34 PM EDT 02/12/20 24 Active Pregabalin 100 MG Oral Capsule (Lyrica)Indicatio ns:Bilateral low back pain with sciatica, sciatica laterality unspecified, unspecified chronicity Take 1 Capsule by mouth in the morning and 1 Capsule at noon and 1 Capsule before bedtime. 300 Capsule 1 4 4:07 PM EST 02/13/20 24 Active metFORMIN HCl 1000 MG Oral Tablet (Glucophage)Indic ations:Type 2 diabetes mellitus with hemoglobin A1c goal of less than 8.0% (HCC) Take 1 Tablet by mouth daily with breakfast. 90 Tablet 3 4 10:37 AM EDT 02/14/20 24 Active Baclofen 10 MG Oral Tablet (Lioresal)Indicat ions:Back spasm Take 1 Tablet by mouth in the morning and 1 Tablet at noon and 1 Tablet before bedtime. 90 Tablet 2 4 4:50 PM EDT 02/18/20 24 Active Furosemide 40 MG Oral Tablet (Lasix) Take 1 Tablet by mouth every other day. 50 Tablet 1 4 3:21 PM EDT 02/19/20 24 Active Empagliflozin 10 MG Oral Tablet (Jardiance)Indica tions:Type 2 diabetes mellitus with hemoglobin A1c goal of less than 8.0% ([facility]) Take 1 Tablet by mouth in the [...] 4 7:18 AM EDT 03/19/20 24 Active traZODone HCl 100 MG Oral [...] Tablet 2 4 9:24 AM EST 05/04/20 24 Active Buprenorphine 5 MCG/HR Transdermal Patch Weekly (Butrans)Indicati ons:Controlled substance agreement signed,Chronic bilateral low back pain with sciatica, sciatica laterality unspecified,Chron ic pain syndrome Place 1 Patch topically on the skin once a week. 4 Patch 05/04/20 24 Active Buprenorphine 5 MCG/HR Transdermal Patch Weekly (Butrans)Indicati ons:Controlled substance agreement signed,Chronic bilateral low back pain with sciatica, sciatica laterality unspecified,Chron ic pain syndrome Place 1 Patch topically on the skin once a week. 4 Patch 04/05/20 24 024 Disconti nued(Ref ill) documented as of this encounter (statuses as [...] (09/03/2009): Per Obesity Taxonomy Coronary atherosclerosis of [place] coronary artery 09/15/2008 10/03/2008 Malaise and fatigue [...] mRNA, LNP-s, No Pre serve, 2-Dose Series (FIGS) 11/08/2020,10/11/2020 HEP A - Hepatitis A (Adult > 18 yrs) 04/11/2011, 09/20/2010 Hepatitis B, 20+ yrs 07/05/2015 Pneumococcal Conjugate Vacci ne, 20-valent ([id number]) 03/13/2023 Pneumococcal Polysaccharide PPV23 (Pneumovax) 02/19/2018,03/09/2007 Seasonal [...] Telephone Encounter - Scott Montoya MD - 05/04/2024 9:02 AM ESTSigned Prescriptions: Disp Refills Buprenorphine 5 MCG/HR Transdermal Patch W*4 Patch0 Sig: Place 1Patch topically on the skin once a week.Authorizing Provider: SCOTT MONTOYA * Telephone Encounter - Polly Clarke [facility] - 05/03/2024 7:45 AM EST Pending Prescriptions: Disp Refills Buprenorphine 5 MCG/HR Transdermal Patch W*4 Patch0 Sig: Place 1 Patch topically on the skin once a week. * Telephone Encounter - Polly Clarke [facility] - 05/03/2024 7:45 AM EST I have reviewed the patients controlled substance dispensing history in the Prescription Drug Monitoring Program in compliance with the [facility] regulations before prescribing a controlled substance. PDMP checked on 05/03/2024. Pending Prescriptions: Disp Refills Buprenorphine 5 MCG/HR Transdermal Patch *4 Patch0 Sig: Place 1 Patch topically on the skin once a week. Last Visit: 02/12/2024 (in office), 03/16/2024 (telemedicine) Next Visit: 06/30/2024 Date medication was last filled: 04/05 Date medication is due for refill: 05/02 Pharmacy: [id number] [address] [facility] Is this request for a [...] approve if appropriate. Thank you, Polly Clarke, PharmD. Clinical Pharmacist [facility] ([facility]) 05/03/2024, 7:45 AM documented in this encounter Plan of Treatment Upcoming Encounters Date Type Department Care Team (Late st Contact Info) Description 05/10/2024 4:00 PM EST Office Visit Nephrology, [facility] [address] [address] Jonathan Mathew MD 200 [facility] [place] [address] 05/12/2024 8:00 AM EST Imaging [facility] 2nd Floor Cardiology, [place] [address] [facility] [place] [phone] 05/13/2024 2:00 PM EST Hem/Onc Treatment Hematology/Oncology Treatment, [place] [address] [place], [place] [address] Park, Chair 6 Hem Onc Scenery [address] [place], [place] [address] 05/16/2024 1:00 PM EST Office Visit [facility] [phone] [address] [place] [address] 06/16/2024 8:30 AM EST Telemedicine Pharmacy, [facility] 132 [facility] [place] [address] [facility] [address] [facility] [place] [address] 06/30/2024 8:00 AM EST Office Visit Family Practice [facility] [address] [facility] [place] [address] Scott Montoya MD [address] [place] [address] 06/30/2024 1:20 PM EST Office Visit Hepatology, [facility] [address] [facility] [place] [address] Jazzy Chu DO [address] [place] [address] 07/07/2024 9:30 AM EST Telemedicine Psychiatry [facility] [address] [place] [address] Nhi Fritz CRNP [address] [facility] [place] [address] 07/08/2024 10:30 AM EST Telemedicine Gastroenterology, [facility] 132 [facility] [place] [address] Adam Bradshaw CRNP 132 [place] [address] 09/14/2024 2:00 PM EDT Office Visit Hematology/Oncology [facility] [address] [facility] [place] [phone] Sunil Bourgeois MD [address] [facility] [place] [address] 12/14/2024 12:20 PM EDT Office Visit Family Practice [facility] 132 [facility] [place] [address] Scott Montoya MD 132 [facility] [place] [address] Scheduled Procedures Name Priority Associated Diagnoses Date/Ti [...] this encounter Medical Devices Implanted Type Area Network Technology Instructor Device Identifier Shelf Expiration Date Model / Serial / Lot Neurostimul Intellis Adaptiv - [id number] - [id number] Implanted:Qty: 1 on 08/22/2022 by Rafia Small MD at OR [facility] N/A: Spine Lumbar [employer] 06/21/2023 [id number] / [id number] / Description:battery Medtronic Lead Kit 60 Cm Implanted:Qty: 1 on 08/22/2022 by Rafia Small MD at OR [facility] N/A: Spine Lumbar 02/01/2026 [id number] / / [id number] Medtronic Lead Kit 60cm Implanted:Qty: 1 on 08/22/2022 by Rafia Small MD at OR [facility] N/A: Spine Lumbar 03/21/2026 [id number] / / [id number] Envelope Tyrx Med Antibacteril - [id number] Implanted:Qty: 1 on 08/22/2022 by Rafia Small MD at OR [facility] N/A: Spine Lumbar [employer] 03/10/2023 [id number] / / [id number] Hemostatic Clip Res 235cm - [id number] Implanted:Qty: 4 on 10/05/2023 by Aj Pruett DO at ENDOSCOPY [facility] : ENDOSCOPY 02/03/2026 [id number] / / Hemostatic Clip Res 235cm - [id number] Implanted:Qty: 1 on 10/05/2023 by Aj Pruett DO at ENDOSCOPY [facility] : ENDOSCOPY 02/02/2026 [id number] / / documented as of this encounter [...] Power of Attor narda? No Care Teams Ergonomics Technician Relationship Specialty Start Date End Date Scott Montoya MD [address] [place] [address] PCP - General Family Medicine 08/03/18 documented as of this encounter
--- OUTSIDE RECORDS SUMMARY | 2024-05-13 05:09 | External Medical Summary | Summary of Care ---
Author Name Unknown Organization [facility] Address [address] [facility] [place] [address] Phone [phone] Care Team Providers Care Roll Forming Supervisor Name Role Phone Scott Weldon MD Primary Care Provider + Reason for Visit * Reason Comments IV Therapy venofer Encounter Details Date Type Department Care Team (Latest Contact Info) Description 03/21/2024 1:00 PM EDT Hem/Onc Treatment Hematology/Oncology Treatment, [address] [phone] Park, Chair [address] [address] Iron deficiency anemia due to chronic blood loss*; Cirrhosis of liver without ascites, unspecified hepatic cirrhosis type (HCC) Allergies Active Allergy Reactions Criticality Noted Date Comments Naproxen Sodium Bleeding High 11/29/2013 Pollen 12/03/2022 Seasonal Food (See Comments) Anaphylaxis High 04/20/2019 Hot peppers (oils) Kiwi Extract Anaphylaxis High 04/20/2019 documented as of this encounter (statuses as of 04/20/2024) Medications ONETOUCH ULTRASOFT LANCETS MISCIndications:D M type [...] 5 02/18/20 17 Active Insulin Infusion Pump (MINIMEcomsual 630G INSULIN PUMP) KITIndications:Ty pe 2 diabetes mellitus with hemoglobin A1c goal of less than 8.0% ([facility]) Use as directed. 07/30/19 18 Active CPAP [...] suspected opioid overdose. Seek immediate medical attention. [email or web address]://[email or web address]?v=[email or web address] 1 Each 3 11/28/19 23 Active Loratadine [...] A1c goal of less than 8.0% ([facility]) Take 1 Tablet by mouth in the morning. 90 Tablet 3 02/26/20 24 Active Metoclopramide HCl 5 MG Oral Tablet (Reglan) Take 1 Tablet by mouth in the morning and 1 Tablet at noon and 1 Tablet in the evening. Take before meals. If needed for nausea. 300 Tablet 1 4 1:51 PM EDT 02/26/20 24 Active hydrOXYzine HCl 25 MG Oral TabletIndications :Anxiety TAKE 1 TABLET BY MOUTH DURING DAY EVERY 4-6 HOURS NEEDED FOR ANXIETY & 2 TABLETS AT BEDTIME NEEDED FOR ANXIETY 450 Tablet 1 02/14/20 24 024 Disconti nued(Ref ill) Escitalopram Oxalate 20 MG Oral Tablet (Lexapro) Take 1 Tablet by mouth in the morning. 90 Tablet 1 4 1:45 PM EDT 02/18/20 24 024 Disconti nued(Ref ill) traZODone HCl 100 MG Oral Tablet (Desyrel) Take 1-2 Tablets by mouth at bedtime. 180 Tablet 1 4 5:34 PM EDT 02/18/20 24 024 Disconti nued(Ref ill) Eszopiclone 2 MG Oral Tablet (Lunesta) Take 1 Tablet by mouth at bedtime. 30 Tablet 2 02/29/20 24 024 Disconti nued(Ref ill) Buprenorphine 5 MCG/HR Transdermal Patch Weekly (Butrans)Indicati ons:Controlled substance agreement signed,Chronic bilateral low back pain with sciatica, sciatica laterality unspecified,Chron ic pain syndrome Place 1 Patch topically on the skin once a week. 4 Patch 03/10/20 24 024 Disconti nued(Ref ill) documented as of this encounter (statuses as of 04/20/2024) Active Problems Problem Noted Date Diagnosed Date [...] as of this encounter (statuses as of 04/20/2024) Resolved Problems Problem Noted Date Diagnosed Date [...] (09/03/2009): Per Obesity Taxonomy Coronary atherosclerosis of [place] [...] as of this encounter (statuses as of 04/20/2024) Immunizations Name Administration Dates Next Due COVID-19 mRNA, LNP-s, No Pre serve, 2-Dose Series (Cuiker) 11/08/2020,10/11/2020 HEP A - Hepatitis A (Adult > 18 yrs) 04/11/2011, 09/20/2010 Hepatitis B, 20+ yrs 07/05/2015 Pneumococcal Conjugate Vacci ne, 20-valent (Oqclbpc23) 03/13/2023 Pneumococcal Polysaccharide PPV23 (Pneumovax) 02/19/2018,03/09/2007 Seasonal [...] Sign Reading Time Taken Comments Blood Pressure 109/59 03/21/2024 1:20 PM EDT Pulse 86 03/21/2024 1:20 PM EDT Temperature 36.7 C (98.1 F) 03/21/2024 1:20 PM ED T Respiratory Rate 16 03/21/2024 1:20 PM EDT Oxygen Saturation - - Inhaled Oxygen Concentration - - Weight - - Height - - Body Mass Index - - documented in this encounter Functional Status * Are you [...] of Assessment Author Yes 04/20/2019 10:25 AM Tersea Gonzalez LPN documented as of this encounter Mental Status * Because of a physical, mental, or emotional condition, do you have serious difficulty concentrating, remembering, or making decisions? (5 years old or older) Answer Entry Date Author No 04/20/2019 10:25 AM EST Teresa Moore LPN documented in this encounter Nursing Notes * Amada Foote RN - 03/21/2024 3:27 PM EDT Goals: Patient will remain free from injury. Possible barriers to meeting goals: ambulating with IV pole Stability of the patient: Moderately stable - low risk of patient condition declining or worsening Summary regarding today's goals: Met: pt remained free of harm today Patient tolerated treatment well without any acute issues or problems. Patient left facility in stable condition and denied any further needs. * Amada Foote RN - 03/21/2024 2:31 PM EDT Chair 12. Port accessed with 1 inch needle. No issues with port. Patient here for Venofer 06/13, patient will continue monthly infusions at this point, labs will be rechecked before next IV iron infusion. Patient instructed on use of heat and massage functions where applicable. Patient shown how to operate the heat function of the chair and to alert nursing staff if the chair feels too warm. Patient instructed on the risk of potential burgess while using the heat function. Safety and Risk for Injury Patient will remain free from injury. Ensure appropriate safety devices are available. Provide and maintain safe environment. documented in this encounter Plan of Treatment Upcoming Encounters Date Type Department Care Team (Late st Contact Info) Description 04/21/2024 1:00 PM EST Office Visit Pharmacy, [place] [address] [facility] [address] [place] [address] [address] [facility] [address] 04/28/2024 11:00 AM EST [facility] 132 [facility] [place] [address] [facility] 132 [facility] [place] [address] 05/10/2024 4:00 PM EST Office Visit Nephrology, [facility] [address] [place] [address] Jonathan Mathew MD [address] [place] [address] 05/12/2024 8:00 AM EST Imaging [facility] 2nd Floor Cardiology, [place] [facility] [place] [phone] 06/30/2024 8:00 AM EST Office Visit Family Practice [facility] [address] [facility] [place] [address] Scott Weldon MD [address] [facility] [place] [address] 06/30/2024 1:20 PM EST Office Visit Hepatology, [facility] 132 [facility] [place] [address] Jazzy Chu DO [address] [place] [address] 07/07/2024 9:30 AM EST Telemedicine Psychiatry [facility] [address] [facility] [place] [address] Nhi Fritz CRNP [address] [place] [address] 07/08/2024 10:30 AM EST Telemedicine Gastroenterology, [facility] 132 [facility] [place] [address] Adam Bradshaw CRNP [address] [facility] [place] [address] 09/14/2024 2:00 PM EDT Office Visit Hematology/Oncology [facility] [address] [place] [address] Sunil Bourgeois MD [address] [place] [address] 12/14/2024 12:20 PM EDT Office Visit [facility] [address] [place] [address] Scott Weldon MD [address] [place] [address] Scheduled Procedures Name Priority Associated Diagnoses Date/Ti [...] 06/14/2020, Additional history exists GFR 03/10/2025 03/10/2024, 090 10/2023, 02/03/2024, Additional history exists Diabetic Eye [...] encounter Medical Devices Implanted Type Area Hydraulic Assembler Device Identifier Shelf Expiration Date Model / Serial / Lot Neurostimul Intellis Adaptiv - [id number] - [id number] Implanted:Qty: 1 on 08/22/2022 by Rafia Small MD at OR [facility] N/A: Spine Lumbar [employer] 06/21/2023 [id number] / [id number] / Description:battery Medtronic Lead Kit 60 Cm Implanted:Qty: 1 on 08/22/2022 by Rafia Small MD at OR [facility] N/A: Spine Lumbar 02/01/2026 [id number] / / [id number] Medtronic Lead Kit 60cm Implanted:Qty: 1 on 08/22/2022 by Rafia Small MD at OR [facility] N/A: Spine Lumbar 03/21/2026 [id number] / / [id number] Envelope Tyrx Med Antibacteril - [id number] Implanted:Qty: 1 on 08/22/2022 by Rafia Small MD at OR [facility] N/A: Spine Lumbar [employer] 03/10/2023 [id number] / / [id number] Hemostatic Clip Res 235cm - [id number] Implanted:Qty: 4 on 10/05/2023 by Aj Pruett DO at ENDOSCOPY [facility] [employer] : ENDOSCOPY 02/03/2026 [id number] / / Hemostatic Clip Res 235cm - [id number] Implanted:Qty: 1 on 10/05/2023 by Aj Pruett DO at ENDOSCOPY [facility] [employer] : ENDOSCOPY 02/02/2026 [id number] / / documented as of this encounter Visit Diagnoses Diagnosis Iron deficiency anemia due to chronic blood loss- Primary Iron deficiency anemia secondary to blood loss (chronic) Cirrhosis of liver without ascites, unspecified hepatic cirrhosis type (HCC) documented in this encounter Administered Medications Inactive Administered Medications - up to 3 most recent administrations Medication Order MAR Action Action Date Dose Rate Site hEParin 100 UNIT/ML Lock Flush inj 500 Units 500 Units (5 mL), IV Lock, PRN Other, IV Flush, Starting on Thu03/21/24 at 1337, Until Thu03/21/24 at 1933, For 24 hours, Do not flush if lock, PICC, or central line not in place; IV infusing or unable to flush.Indications:Iron deficiency anemia due to chronic blood loss,Cirrhosis of liver without ascites, unspecified hepatic cirrhosis type (HCC) Given 03/21/2024 3:21 PM EDT 500 Units Iron Sucrose (Venofer) 300 mg in NSS 250 mL ivpb 300 mg, IV Piggyback, ONCE, 1 dose, On Thu03/21/24 at 1515, Administer over 90 MinutesIndications:Iron deficiency anemia due to chronic blood loss,Cirrhosis of liver without ascites, unspecified hepatic cirrhosis type (HCC) Start Infusion 03/21/2024 1:38 PM EDT 300 mg 180 mL/hr NSS infusion 500 mL, Intravenous, at 50 mL/hr, CONTINUOUS, Starting on Thu03/21/24 at 1445, Until Thu03/21/24 at 1933Indications:Iron deficiency anemia due to chronic blood loss,Cirrhosis of liver without ascites, unspecified hepatic cirrhosis type (HCC) Start Infusion 03/21/2024 1:37 PM EDT 500 mL 50 mL/hr sodium chloride 0.9 % flush central line 10 mL 10 mL, IV Push, PRN Other, IV Flush, Starting on Thu03/21/24 at 1337, Until Thu03/21/24 at 1933, For 24 hours, Do not flush if lock, PICC, or central line not in place; IV infusing or unable to flush.Indications:Iron deficiency anemia due to chronic blood loss,Cirrhosis of liver without ascites, unspecified hepatic cirrhosis type (HCC) Given 03/21/2024 3:21 PM EDT 10 mL documented in this encounter Advance Directives * [...] Power of Attor narda? No Care Teams Roll Forming Supervisor Relationship Specialty Start Date End Date Scott Weldon MD 132 [facility] [place] [address] PCP - General Family Medicine 08/03/18 documented as of this encounter
--- OUTSIDE RECORDS SUMMARY | 2024-05-13 05:09 | External Medical Summary | Summary of Care ---
Author Name Unknown Organization [facility] Address [address] [facility] [place] [address] Phone [phone] Care Team Providers Care Assembler Fluorescent Lights Name Role Phone Scott Weldon MD Primary Care Provider + Encounter Details Date Type Department Care Team (Late st Contact Info) Description 04/14/2024 Population Health External Data Unspecified Department Allergies [...] 8.0% ([facility]) Use as directed. 07/30/19 18 [...] suspected opioid overdose. Seek immediate medical attention. https://www.edo.com/watch?v=[email or web address] 1 Each 3 11/28/19 23 Active Loratadine [...] Diabetes mellitus with background retinopathy Overview (12/24/2019): 2019 telemed images, mild Encounter for venous [...] (09/03/2009): Per Obesity Taxonomy Coronary atherosclerosis of [place] coronary artery 09/15/2008 10/03/2008 Malaise and fatigue [...] mRNA, LNP-s, No Pre serve, 2-Dose Series ([employer] 11/08/2020,10/11/2020 HEP A - Hepatitis A (Adult > 18 yrs) 04/11/2011, 09/20/2010 Hepatitis B, 20+ yrs 07/05/2015 Pneumococcal Conjugate Vacci ne, 20-valent ([id number]) 03/13/2023 Pneumococcal Polysaccharide PPV23 (Pneumovax) 02/19/2018,03/09/2007 Seasonal [...] Teresa Gonzalez LPN documented in this encounter Plan of Treatment Upcoming Encounters Date Type Department Care Team (Late st Contact Info) Description 04/21/2024 1:00 PM EST Office Visit Pharmacy, [place] [address] [facility] [place] [address] [facility] [address] [facility] [place] [address] 04/28/2024 11:00 AM EST Telemedicine Pharmacy, [facility] [address] [facility] [place] [address] [facility] [address] [facility] [place] [address] 05/10/2024 4:00 PM EST Office Visit Nephrology, [facility] [address] [place], [place] [address] Jonathan Mathew MD [address] [place] [address] 05/12/2024 8:00 AM EST Imaging [facility] 2nd Floor Cardiology, [place] [address] [facility] [place] [address] 06/30/2024 8:00 AM EST Office Visit Family Practice [facility] [address] [place] [address] Scott Weldon MD [address] [place] [place] [address] 06/30/2024 1:20 PM EST Office Visit Hepatology, [facility] [address] [facility] [address] Jazzy Chu DO [address] [place] [address] 07/07/2024 9:30 AM EST Telemedicine Psychiatry [facility] [address] [place] [phone] Nhi Fritz CRNP [address] [place] [address] 07/08/2024 10:30 AM EST Telemedicine Gastroenterology, [facility] [address] [place] [address] Adam Bradshaw CRNP [address] [place] [address] 09/14/2024 2:00 PM EDT Office Visit Hematology/Oncology [facility] [address] [place] [address] Sunil Bourgeois MD [address] [place] [address] 12/14/2024 12:20 PM EDT Office Visit Family [facility] [address] [place] [address] Scott Weldon MD [address] [place] [address] Scheduled Procedures Name Priority Associated Diagnoses Date/Ti [...] 03/11/2022, Additional history exists Mammogram 09/01/2024 09/02/2023, 11/3 , 01/21/2016 B-12 09/07/2024 09/08/2023, 09/2022, 06/14/2020, [...] this encounter Medical Devices Implanted Type Area Crm Developer Device Identifier Shelf Expiration Date Model / Serial / Lot Neurostimul Intellis Adaptiv - [id number] - [id number] Implanted:Qty: 1 on 08/22/2022 by Rafia Small MD at OR [facility] N/A: Spine Lumbar [employer] 06/21/2023 [id number] / [id number] / Description:battery Medtronic Lead Kit 60 Cm Implanted:Qty: 1 on 08/22/2022 by Rafia Small MD at OR [facility] N/A: Spine Lumbar 02/01/2026 [id number] / / [id number] Medtronic Lead Kit 60cm Implanted:Qty: 1 on 08/22/2022 by Rafia Small MD at OR [facility] N/A: Spine Lumbar 03/21/2026 [id number] / / [id number] Envelope Tyrx Med Antibacteril - [id number] Implanted:Qty: 1 on 08/22/2022 by Rafia Small MD at OR [facility] N/A: Spine Lumbar [employer] 03/10/2023 [id number] / / [id number] Hemostatic Clip Res 235cm - [id number] Implanted:Qty: 4 on 10/05/2023 by Aj Pruett DO at ENDOSCOPY [facility] : ENDOSCOPY 02/03/2026 [id number] / / Hemostatic Clip Res 235cm - [id number] Implanted:Qty: 1 on 10/05/2023 by Aj Pruett DO at ENDOSCOPY [facility] : ENDOSCOPY 02/02/2026 [id number] / / documented as of this encounter [...] Power of Attor narda? No Care Teams Assembler Fluorescent Lights Relationship Specialty Start Date End Date Scott Weldon MD [address] [place] [address] PCP - General Family Medicine 08/03/18 documented as of this encounter
--- OUTSIDE RECORDS SUMMARY | 2024-05-13 05:09 | External Medical Summary | Summary of Care ---
Author Name Unknown Organization [facility] Address [address] [facility] [place] [address] Phone [phone] Care Team Providers Care Passenger Brakeman Name Role Phone Scott Weldon MD Primary Care Provider + Reason for Visit * Reason Comments IV Therapy venofer Encounter Details Date Type Department Care Team (Latest Contact Info) Description 03/21/2024 1:00 PM EDT Hem/Onc Treatment Hematology/Oncology Treatment, [address] [phone] [place], Chair 6 Hem Onc [address] [address] Iron deficiency anemia due to chronic blood [...] 5 02/18/20 17 Active Insulin Infusion Pump (MINIMNaviscan 630G INSULIN PUMP) KITIndications:Ty pe 2 diabetes mellitus with hemoglobin A1c goal of less than 8.0% ([facility]) Use as directed. 07/30/19 18 Active CPAP [...] suspected opioid overdose. Seek immediate medical attention. https://www.Arts & Analyticstu be.com/watch?v=[email or web address] [email or web address] 1 Each 3 11/28/19 23 Active Loratadine [...] ([facility]) Take 1 Tablet by mouth in the [...] (09/03/2009): Per Obesity Taxonomy Coronary atherosclerosis of [place] [...] mRNA, LNP-s, No Pre serve, 2-Dose Series (Any.DO) 11/08/2020,10/11/2020 HEP A - Hepatitis A (Adult > 18 yrs) 04/11/2011, 09/20/2010 Hepatitis B, 20+ yrs 07/05/2015 Pneumococcal Conjugate Vacci ne, 20-valent (Agzlvfk97) 03/13/2023 Pneumococcal Polysaccharide PPV23 (Pneumovax) 02/19/2018,03/09/2007 Seasonal [...] 04/21/2024 1:00 PM EST Office Visit Pharmacy, [place] [address] [facility] [address] [place] [address] [facility] [address] 04/28/2024 11:00 AM EST [facility] 132 [facility] [place] [address] [facility] 132 [facility] [place] [address] 05/10/2024 4:00 PM EST Office Visit Nephrology, [facility] [address] [place] [address] Jonathan Mathew MD [address] [place] [address] 05/12/2024 8:00 AM EST Imaging [facility] 2nd Floor Cardiology, [place] [facility] [place] [phone] 06/30/2024 8:00 AM EST Office Visit Family Practice [facility] 132 [facility] [place] [address] Scott Weldon MD [address] [facility] [place] [address] 06/30/2024 1:20 PM EST Office Visit Hepatology, [facility] 132 [facility] [place] [address] Jazzy Chu DO [address] [place] [address] 07/07/2024 9:30 AM EST Telemedicine Psychiatry [facility] [address] [facility] [address] Nhi Fritz CRNP [address] [place] [address] 07/08/2024 10:30 AM EST Telemedicine Gastroenterology, [facility] 132 [facility] [place] [address] Adam Bradshaw CRNP [address] [facility] [place] [address] 09/14/2024 2:00 PM EDT Office Visit Hematology/Oncology [facility] [address] [place] [address] Sunil Bourgeois MD [address] [place] [address] 12/14/2024 12:20 PM EDT Office Visit [facility] [address] [place] [address] Scott Weldon MD [address] [place] [address] Scheduled Procedures Name Priority Associated Diagnoses Date/Ti [...] this encounter Medical Devices Implanted Type Area Flame Degreaser Device Identifier Shelf Expiration Date Model / Serial / Lot Neurostimul Intellis Adaptiv - [id number] - [id number] Implanted:Qty: 1 on 08/22/2022 by Rafia Small MD at OR [facility] N/A: Spine Lumbar [employer] 06/21/2023 [id number] / [id number] / Description:battery Medtronic Lead Kit 60 Cm Implanted:Qty: 1 on 08/22/2022 by Rafia Small MD at OR [facility] N/A: Spine Lumbar 02/01/2026 [id number] / / [id number] Medtronic Lead Kit 60cm Implanted:Qty: 1 on 08/22/2022 by Rafia Small MD at OR [facility] N/A: Spine Lumbar 03/21/2026 [id number] / / [id number] Envelope Tyrx Med Antibacteril - [id number] Implanted:Qty: 1 on 08/22/2022 by Rafia Small MD at OR [facility] N/A: Spine Lumbar [employer] 03/10/2023 [id number] / / [id number] Hemostatic Clip Res 235cm - [id number] Implanted:Qty: 4 on 10/05/2023 by Aj Pruett DO at ENDOSCOPY [facility] : ENDOSCOPY 02/03/2026 [id number] / / Hemostatic Clip Res 235cm - [id number] Implanted:Qty: 1 on 10/05/2023 by Aj Pruett DO at ENDOSCOPY [facility] : ENDOSCOPY 02/02/2026 [id number] / / documented as of this encounter [...] Power of Attor narda? No Care Teams Passenger Brakeman Relationship Specialty Start Date End Date Scott Weldon MD 132 [facility] [place] [address] PCP - General Family Medicine 08/03/18 documented as of this encounter
--- OUTSIDE RECORDS SUMMARY | 2024-05-13 05:10 | External Medical Summary | Summary of Care ---
Author Name Unknown Organization [facility] Address [address] [facility] [place] [address] Phone [phone] Care Team Providers Care Funeral Planner Name Role Phone Scott Weldon MD Primary Care Provider + Reason for Visit * Reason Onset Date Comments Test Results Lab 04/18/2024 Encounter Details Date Type Department Care Team (Late st Contact Info) Description 04/18/2024 Telephone Hematology/Oncology [facility] [address] [place] [address] Sunil Bourgeois MD 200 [place] [address] Test Results Lab Allergies Active Allergy Reactions Criticality Noted Date Comments Naproxen Sodium Bleeding High 11/29/2013 Pollen 12/03/2022 Seasonal Food (See Comments) Anaphylaxis High 04/20/2019 Hot peppers (oils) Kiwi Extract Anaphylaxis High 04/20/2019 documented as of this encounter (statuses as of 04/18/2024) Medications ONETOUCH ULTRASOFT LANCETS MISCIndications:DM type 2, [...] 8.0% ([facility]) Use as directed. 07/30/19 18 Active CPAP [...] suspected opioid overdose. Seek immediate medical attention. https://www.WALTOP.com/watch?v=[email or web address] 1 Each 3 11/28/19 23 Active Loratadine [...] [facility]),DM type 2, not at goal (HCC) INJECT [...] HOURS NEEDED FOR ANXIETY 450 Tablet 1 04/14/20 24 Active Eszopiclone 2 MG Oral Tablet (Lunesta) Take 1 Tablet by mouth at bedtime. Do not start before May 04, 2024. 30 Tablet 2 05/04/20 24 Active documented as of this encounter (statuses as of 04/18/2024) Active Problems Problem Noted Date Diagnosed Date [...] as of this encounter (statuses as of 04/18/2024) Resolved Problems Problem Noted Date Diagnosed Date [...] (09/03/2009): Per Obesity Taxonomy Coronary atherosclerosis of [place] coronary artery 09/15/2008 10/03/2008 Malaise and fatigue [...] ACUTE CYSTITIS 01/06/2001 10/02/2003 Candidal vulvovaginitis 01/06/2001 04/11/2003 Constipation 09/02/2000 08/29/2013 Overview (08/30/2015): ICD-10 update of inactive term ACUTE BRONCHITIS 07/04/1999 10/02/2003 Dyslipidemia, goal LDL below 100 03/06/2010 ASCVD 01/24/2015 Other specified disorders of liver 12/30/2010 Overview (03/12/2010): fatty liver Kidney stone 09/15/2014 Overview (05/14/2012): x 2 documented as of this encounter (statuses as of 04/18/2024) Immunizations Name Administration Dates Next Due COVID-19 mRNA, LNP-s, No Pre serve, 2-Dose Series (hetras) 11/08/2020,10/11/2020 HEP A - Hepatitis A (Adult > 18 yrs) 04/11/2011, 09/20/2010 Hepatitis B, 20+ yrs 07/05/2015 Pneumococcal Conjugate Vacci ne, 20-valent (Avpvnmh33) 03/13/2023 Pneumococcal Polysaccharide PPV23 (Pneumovax) 02/19/2018,03/09/2007 Seasonal [...] of Assessment Author Yes 04/20/2019 10:25 AM Teersa Gonzalez LPN documented as of this encounter Mental Status * Because of a physical, mental, or emotional condition, do you have serious difficulty concentrating, remembering, or making decisions? (5 years old or older) Answer Entry Date Author No 04/20/2019 10:25 AM Teresa Gonzalez LPN documented in this encounter Miscellaneous Notes * Telephone Encounter - Jaaj Murray LPN - 04/18/2024 10:28 AM EST My G sent. * Telephone Encounter - Jaja Murray LPN - 04/18/2024 10:20 AM EST ----- Message from Sunil Bourgeois MD sent at 04/17/2024 11:12 AM EST ----- Blood workup done on 04/15/2024: -WBC 4100, Hemoglobin and hematocrit -35.4, [place] [address]. -Ferritin level--> 117 -Serum iron: 80, TIBC [...] 04/21/2024 1:00 PM EST Office Visit Pharmacy, [address] [address] 04/28/2024 11:00 AM EST [address]med[address] Pharmacy, [address] [place] [address] 05/12/2024 8:00 AM EST Imaging [facility] 2nd Floor Cardiology, [address] [place] [phone] 06/03/2024 1:40 PM EST Office Visit Nephrology, [facility] [address] [place] [address] Jonathan Mathew MD [address] [place] [address] 06/30/2024 8:00 AM EST Office Visit Family Practice [facility] 132 [facility] [place] [address] Scott Weldon MD [address] [place] [address] 06/30/2024 1:20 PM EST Office Visit Hepatology, [facility] [address] [facility] [place] [address] Jazzy Chu DO [address] [place] [address] 07/07/2024 9:30 AM EST [facility]medicine [facility] [address] [place] [address] Nhi Fritz CRNP [address] [place] [address] 07/08/2024 10:30 AM EST Telemedicine Gastroenterology, [facility] [address] [facility] [place], [place] [address] Adam Bradshaw CRNP [address] [place] [address] 09/14/2024 2:00 PM EDT Office [facility] [address] [facility] [place] [phone] Sunil Bourgeois MD [address] [facility] [place] [address] 12/14/2024 12:20 PM EDT Office Visit Family Practice [facility] [address] [place] [address] Scott Weldon MD [address] [facility] [place] [address] Scheduled Procedures Name Priority Associated Diagnoses Date/Ti [...] 09/08/2023, 110 10/2014, 04/12/2015, Additional history exists Lipid Panel 07/23/2028 07/23/2023, 0 09/2021, 12/12/2019, Additional history exists DTap/Tdap Vaccines [...] Medical Devices Implanted Type Area Manager Of Case Management Device Identifier Shelf Expiration Date Model / Serial / Lot Neurostimul Intellis Adaptiv - [id number] - [id number] Implanted:Qty: 1 on 08/22/2022 by Rafia Small MD at OR [facility] N/A: Spine Lumbar [employer] 06/21/2023 [id number] / [id number] / Description:battery Medtronic Lead Kit 60 Cm Implanted:Qty: 1 on 08/22/2022 by Rafia Small MD at OR [facility] N/A: Spine Lumbar 02/01/2026 [id number] / / [id number] Medtronic Lead Kit 60cm Implanted:Qty: 1 on 08/22/2022 by Rafia Small MD at OR [facility] N/A: Spine Lumbar 03/21/2026 [id number] / / [id number] Envelope Tyrx Med Antibacteril - [id number] Implanted:Qty: 1 on 08/22/2022 by Rafia Small MD at OR [facility] N/A: Spine Lumbar [employer] 03/10/2023 [id number] / / [id number] Hemostatic Clip Res 235cm - [id number] Implanted:Qty: 4 on 10/05/2023 by Aj Pruett DO at ENDOSCOPY [facility] : ENDOSCOPY 02/03/2026 [id number] / / Hemostatic Clip Res 235cm - [id number] Implanted:Qty: 1 on 10/05/2023 by Aj Pruett DO at ENDOSCOPY [facility] : ENDOSCOPY 02/02/2026 [id number] / / documented as of this encounter [...] Power of Attor narda? No Care Teams Funeral Planner Relationship Specialty Start Date End Date Scott Weldon MD 132 [facility] [place] [address] PCP - General Family Medicine 08/03/18 documented as of this encounter
--- OUTSIDE RECORDS SUMMARY | 2024-05-13 05:10 | External Medical Summary ---
Author Name Unknown Address Unknown Organization K09:[facility] [address] Laboratory Report Ordering Provider Test Date Status LUIS ANTONIO LEIVA 04/15/2024 11:12:42 Final Observation Date Value Abnormality Reference (Units ) Status Nucleated erythrocytes/100 leukocytes [Ratio] in Blood by Automated count 04/15/2024 11:12:42 Final Elliptocytes [Presence] in Blood by Light microscopy 04/15/2024 11:12:42 Moderate Abnormal None Seen Final Performing Location [facility] [place] [address]
--- OUTSIDE RECORDS SUMMARY | 2024-05-13 05:10 | External Medical Summary ---
Author Name Unknown Address Unknown Organization K01:[facility] [place] [address] [place] [address] Laboratory Report Ordering Provider Test Date Status LUIS ANTONIO LEIVA 04/15/2024 11:12:42 Final Observation Date Value Abnormality Reference (Units ) Status Iron 04/15/2024 11:12:42 80 33-151 (ug /dL) Final Iron-binding capacity 04/15/2024 11:12:42 329 250-425 (ug/dL) Final Transferrin Sat % 04/15/2024 11:12:42 24 15 -55 (%) Final Performing Location [facility] [place] [address] [place] [address]
--- OUTSIDE RECORDS SUMMARY | 2024-05-13 05:10 | External Medical Summary ---
Author Name Unknown Address Unknown Organization [id number][place] [place] [address] [facility] [place] [address] Laboratory Report Ordering Provider Test Date Status LUIS ANTONIO LEIVA 04/15/2024 11:12:42 Final Observation Date Value Abnormality Reference (Units ) Status Ferritin 04/15/2024 11:12:42 117 13-150 (ng /mL) Final Postmenopausal women have hi gher ferritin levels than pre-menopausal women. The above reference interval is based on pre-menopausal women. Performing Location [facility] [place] [address] [place] [address]
--- OUTSIDE RECORDS SUMMARY | 2024-05-13 05:10 | External Medical Summary | Summary of Care ---
Author Name Unknown Organization [facility] Address [address] [facility] [place] [address] Phone [phone] Care Team Providers Care Social Sciences Department Chair Name Role Phone Scott Weldon MD Primary Care Provider + Reason for Visit * Reason Comments IV Therapy Venofer Encounter Details Date Type Department Care Team (Late st Contact Info) Description 04/15/2024 11:00 AM EST Nurse Only Hematology/Oncology Treatment, [address] [phone] [place], Chair 3 Hem Onc [address] [id number] IV Therapy (Venofer) Allergies Active Allergy Reactions Criticality Noted Date Comments Naproxen Sodium Bleeding High 11/29/2013 Pollen 12/03/2022 Seasonal Food (See Comments) Anaphylaxis High 04/20/2019 Hot peppers (oils) Kiwi Extract Anaphylaxis High 04/20/2019 documented as of this encounter (statuses as of 04/15/2024) Medications ONETOUCH ULTRASOFT LANCETS MISCIndications:DM type 2, [...] goal of less than 8.0% ([facility]) Use as directed. 07/30/19 18 Active [...] suspected opioid overdose. Seek immediate medical attention. https://www.[employer].com/watch?v=v2 4jGry7UwN 1 Each 3 11/28/19 23 Active Loratadine [...] goal of less than 8.0% ([facility]),DM type 2, not at goal ([facility]) INJECT UP TO 200 UNITS SUBCUTANEOSULY ONCE [...] skin once a week. 4 Patch 04/05/20 Active documented as of this encounter (statuses as of 04/15/2024) Active Problems Problem Noted Date Diagnosed Date [...] as of this encounter (statuses as of 04/15/2024) Resolved Problems Problem Noted Date Diagnosed Date [...] (09/03/2009): Per Obesity Taxonomy Coronary atherosclerosis of [place] coronary artery 09/15/2008 10/03/2008 Malaise and [...] as of this encounter (statuses as of 04/15/2024) Immunizations Name Administration Dates Next Due COVID-19 mRNA, LNP-s, No Pre serve, 2-Dose Series (Continuum) 11/08/2020,10/11/2020 HEP A - Hepatitis A (Adult > 18 yrs) 04/11/2011, 09/20/2010 Hepatitis B, 20+ yrs 07/05/2015 Pneumococcal Conjugate Vacci ne, 20-valent ([id number]) 03/13/2023 Pneumococcal Polysaccharide PPV23 (Pneumovax) 02/19/2018,03/09/2007 Seasonal [...] Sign Reading Time Taken Comments Blood Pressure 108/73 04/15/2024 11:10 AM EST Pulse 86 04/15/2024 11:10 AM EST Temperature 37 C (98.6 F) 04/15/2024 11:10 AM EST Respiratory Rate 18 04/15/2024 11:10 AM EST Oxygen Saturation 93% 04/15/2024 11:10 AM EST Inhaled Oxygen Concentration - - Weight - - Height - - Body Mass Index - - documented in this encounter Functional Status * Are you deaf or do you have serious difficulty hearing? Answer Date of Assessment Author No 04/20/2019 10:25 AM EST Teresa Moore LPN * Are you blind or do you have serious difficulty seeing, even when wearing glasses? Answer Date of Assessment Author No 04/20/2019 10:25 AM EST Venhuize Teresa noel LPN * Do you have serious difficulty walking or climbing stairs? (5 years old or older) Answer Date of Assessment Author Yes 04/20/2019 10:25 AM EST Teresa Moore LPN * Do you have difficulty dressing or bathing? (5 years old or older) Answer Date of Assessment Author No 04/20/2019 10:25 AM EST Teresa Moore LPN * Because of a physical, mental, or emotional condition, do you have difficulty doing errands alone such as visiting a doctors office or shopping? (15 years old or older) Answer Date of Assessment Author Yes 04/20/2019 10:25 AM EST Teresa Moore LPN documented as of this encounter Mental Status * Because of a physical, mental, or emotional condition, do you have serious difficulty concentrating, remembering, or making decisions? (5 years old or older) Answer Entry Date Author No 04/20/2019 10:25 AM Teresa Gonzalez LPN documented in this encounter Nursing Notes * Valorie Toro RN - 04/15/2024 2:45 PM EST Patient tolerated infusion without difficulty. She had one episode of nausea, but it resolved with praneeth adebayo. VAD with brisk blood return and flushed with 10 ml NSS and Heparin 5 ml (100 units/ml). Powell needle removed intact. Goals: Patient will remain free from injury Possible barriers to meeting goals: Ambulating with IV pole Stability of the patient: Moderately stable - low risk of patient condition declining or worsening Summary regarding today's goals: Met: Patient remained free from harm. Pt discharged in stable condition. * Valorie Toro RN - 04/15/2024 2:37 PM EST Chair 1 Patient here for infusion. Patient complained of being fatigued but nothing more that normal. Port accessed with brisk blood return. Patient instructed on use of heat in chair. Patient shown how to operate the heat [...] Description 04/21/2024 1:00 PM EST Office Visit Pharmacy[address] [address] 04/28/2024 11:00 AM EST Telemedicine Pharmacy, [facility] [address] [address] [place] [address] 05/12/2024 8:00 AM EST Imaging [facility] 2nd Floor Cardiology, [place] [address] [facility] [place] [phone] 06/03/2024 1:40 PM EST Office Visit [facility] [address] [place] [address] Jonathan Mathew MD [address] [place] [address] 06/30/2024 8:00 AM EST Office Visit Family Practice [facility] [address] [facility] [place] [address] Scott Weldon MD [address] [place] [address] 06/30/2024 1:20 PM EST Office Visit Hepatology, [facility] [place] [address] Jazzy Chu DO [address] [place] [address] 07/07/2024 9:30 AM EST Telemedicine [facility]iat[facility] [address] [place] [address] Nhi Fritz CRNP [address] [place] [address] 07/08/2024 10:30 AM EST Telemedicine Gastroenterology, [facility] [address] [facility] [place] [address] Adam Bradshaw CRNP [address] [place], [place] [address] 09/14/2024 2:00 PM EDT Office Visit Hematology/Oncology [facility] [address] [facility] [phone] Sunil Bourgeois MD [address] [facility] [place] [address] 12/14/2024 12:20 PM EDT Office Visit Family Practice [facility] [place] [address] Scott Weldon MD [address] [facility] [address] Pending Results Name Type Priority Associated Diagnoses Date /Time FERRITIN Lab STAT Iron deficiency anemia, unspecified iron deficiency anemia type 04/15/2024 11:12 AM EST IRON SCREEN, INCLUDING TIBC Lab STAT Iron deficiency anemia, unspecified iron deficiency anemia type 04/15/2024 11:12 AM EST Scheduled Procedures Name Priority Associated Diagnoses Date/Ti [...] this encounter Medical Devices Implanted Type Area Byproducts Supervisor Device Identifier Shelf Expiration Date Model / Serial / Lot Neurostimul Intellis Adaptiv - [id number] - [id number] Implanted:Qty: 1 on 08/22/2022 by Rafia Small MD at OR [facility] N/A: Spine Lumbar [employer] 06/21/2023 [id number] / [id number] / Description:battery Medtronic Lead Kit 60 Cm Implanted:Qty: 1 on 08/22/2022 by Rafia Small MD at OR [facility] N/A: Spine Lumbar 02/01/2026 [id number] / / [id number] Medtronic Lead Kit 60cm Implanted:Qty: 1 on 08/22/2022 by Rafia Small MD at OR [facility] N/A: Spine Lumbar 03/21/2026 [id number] / / [id number] Envelope Tyrx Med Antibacteril - [id number] Implanted:Qty: 1 on 08/22/2022 by Rafia Small MD at OR [facility] N/A: Spine Lumbar [employer] 03/10/2023 [id number] / / [id number] Hemostatic Clip Res 235cm - [id number] Implanted:Qty: 4 on 10/05/2023 by Aj Pruett, at [facility]COPY 02/03/2026 [id number] / / Hemostatic Clip Res 235cm - [id number] Implanted:Qty: 1 on 10/05/2023 by Aj Pruett, DO at ENDOSCOPY [facility] : ENDOSCOPY 02/02/2026 [id number] / / documented as of this encounter Procedures Procedure Name Priority Date/Time Associated Diagnosis Comments DIFFERENTIAL, AUTOMATED STAT 04/15/2024 11:12 AM EST Iron deficiency anemia, unspecified iron deficiency anemia type CBC STAT 04/15/2024 11:12 AM EST Iron deficiency anemia, unspecified iron deficiency anemia type CBC STAT 04/15/2024 11:12 AM EST Iron deficiency anemia, unspecified iron deficiency anemia type DIFFERENTIAL, TECHNOLOGIST REVIEW Routine 04/15/2024 11:12 AM EST Iron deficiency anemia, unspecified iron deficiency anemia type documented in this encounter Results * (ABNORMAL) DIFFERENTIAL, TECHNOLOGIST REVIEW (04/15/2024 11:12 AM EST) Pathologist [facility] 04/15/2024 11:55 AM EST [facility] 56-02 Elliptocytes Moderate(A ) None Seen 04/15/2024 11:55 AM EST [facility] 56-02 Blood Venous blood specimen / Unknown Central Line / Unknown 04/15/2024 11:12 AM EST 04/15/2024 11:39 AM EST us Sunil Bourgeois MD LAB BLOOD ORDERABLES Final Res ult [facility] 56-[address] [place] [address] * DIFFERENTIAL, AUTOMATED (04/15/2024 11:12 AM EST) Pathologist [facility] WBC 4.13 4.00 - 10.80 K/uL 04/15/2024 11:55 AM [facility] 56-02 Neutrophils % 61.5 40.0 - 75.0 % 04/15/2024 11:55 AM [facility] 56-02 Lymphocytes % 24.7 18.0 - 42.0 % 04/15/2024 11:55 AM [facility] 56-02 Monocytes % 8.7 1.0 - 11.0 % 04/15/2024 11:55 AM [facility] 56-02 Eosinophils % 4.4 0.0 - 6.0 % 04/15/2024 11:55 AM [facility] 56-02 Basophils % 0.7 0.0 - 2.0 % 04/15/2024 11:55 AM [facility] 56-02 Absolute Neutrophils 2.54 1.80 - 7.70 K/uL 04/15/2024 11:55 AM [facility] 56-02 Absolute Lymphocytes 1.02 1.00 - 4.80 K/ul 04/15/2024 11:55 AM [facility] 56-02 Absolute Monocytes 0.36 0.00 - 1.10 K/uL 04/15/2024 11:55 AM [facility] 56-02 Absolute Eosinophils 0.18 0.00 - 0.70 K/uL 04/15/2024 11:55 AM [facility] 56-02 Absolute Basophils 0.03 0.00 - 0.20 K/uL 04/15/2024 11:55 AM [facility] 56-02 Blood Venous blood specimen / Unknown Central Line / Unknown 04/15/2024 11:12 AM EST 04/15/2024 11:39 AM EST us Sunil Bourgeois MD LAB BLOOD ORDERABLES Final Res ult [facility] 56-[address] [place] [address] * (ABNORMAL) CBC (04/15/2024 11:12 AM EST) WBC 4.13 4.00 - 10.80 K/uL 04/15/2024 11:55 AM [facility] 56 RBC 4.14 3.85 - 5.15 M/uL 04/15/2024 11:55 AM [facility] 56 HGB 11.0(L) 12.0 - 15.3 g/dL 04/15/2024 11:55 AM [facility] 56 HCT 35.4(L) 36.0 - 45.2 % 04/15/2024 11:55 AM [facility] 56 MCV 85.5 81.5 - 97.5 fL 04/15/2024 11:55 AM [facility] 56 MCH 26.6 27.0 - 34.0 pg 04/15/2024 11:55 AM [facility] 56 MCHC 31.1 32.0 - 36.0 g/dL 04/15/2024 11:55 AM [facility] 56 RDW 16.7 11.5 - 15.5 % 04/15/2024 11:55 AM [facility] 56 PLT 71(L) 140 - 400 K/uL 04/15/2024 11:55 AM [facility] 56 MPV 10.0 6.6 - 11.1 fL 04/15/2024 11:55 AM [facility] 56 Blood Venous blood specimen / Unknown Central Line / Unknown 04/15/2024 11:12 AM EST 04/15/2024 11:39 AM EST us Sunil Bourgeois MD LAB BLOOD ORDERABLES Final Res ult [facility] 56- [address] [place] [address] documented in this encounter Visit Diagnoses Diagnosis Iron deficiency anemia due to chronic blood loss- Primary Iron deficiency anemia secondary to blood loss (chronic) Iron deficiency anemia, unspecified iron deficiency anemia type Cirrhosis of liver without ascites, unspecified hepatic cirrhosis type (HCC) documented in this encounter Administered Medications Active Administered Medications - up to 3 most recent administrations Medication Order MAR Action Action Date Dose Rate Site diphenhydrAMINE (Benadryl) inj 50 mg 50 mg, IV Push, ONCE PRN Other, Hypersensitivity Reaction, Starting on Thu04/15/24 at 1130, Until 04/16/24 at 1129, For 24 hoursIndications:Iron deficiency anemia due to chronic blood loss,Cirrhosis of liver without ascites, unspecified hepatic cirrhosis type (HCC) EPINEPHrine 1 MG/ML inj 0.3 mg 0.3 mg, Intramuscular, ONCE PRN Other, Hypersensitivity Reaction or Anaphylaxis, Starting on Thu04/15/24 at 1130, Until 04/16/24 at 1129, For 24 hoursIndications:Iron deficiency anemia due to chronic blood loss,Cirrhosis of liver without ascites, unspecified hepatic cirrhosis type (HCC) hEParin 100 UNIT/ML Lock Flush inj 500 Units 500 Units (5 mL), IV Lock, PRN Other, IV Flush, Starting on Thu04/15/24 at 1130, Until Thu04/16/24 at 1129, For 24 hours, Do not flush if lock, PICC, or central line not in place; IV infusing or unable to flush.Indications:Iron deficiency anemia due to chronic blood loss,Cirrhosis of liver without ascites, unspecified hepatic cirrhosis type (HCC) Given 04/15/2024 1:17 PM EST 500 Units Hydrocortisone Sod Suc (PF) (Solu-Cortef) inj 100 mg 100 mg, IV Push, ONCE PRN Other, Hypersensitivity Reaction, Starting on Thu04/15/24 at 1130, Until 04/16/24 at 1129, For 24 hoursIndications:Iron deficiency anemia due to chronic blood loss,Cirrhosis of liver without ascites, unspecified hepatic cirrhosis type (HCC) NSS infusion 500 mL, Intravenous, at 50 mL/hr, CONTINUOUS, Starting on Thu04/15/24 at 1245, Until Thu04/15/24 at 2244Indications:Iron deficiency anemia due to chronic blood loss,Cirrhosis of liver without ascites, unspecified hepatic cirrhosis type (HCC) Start Infusion 04/15/2024 11:32 AM EST 500 mL 50 mL/hr oxygen GAS Inhalation, OXYGEN, First dose on Thu04/15/24 at 1600, Until Discontinued, Device/Managed by: Low Flow Device, Goal SPO2 (%): 91-95, Starting Device: Nasal Cannula, Initial Flow Rate (LPM): 2, Lowest Support: Nasal Cannula: Flow 0-6 LPM. Titrate up/down by 1 LPM., Higher Support: Non-Rebreather (NRB) Mask: Minimum of 10 LPM. Titrate to maintain bag inflation., Titration Interval: Q2 minutes and as needed., Notify Provider: For sudden DECREASE in resting SPO2 to less than 85% and when escalating delivery device., Wean patient off Oxygen when the oxygen saturation is greater than or equal to 93%Indications:Iron deficiency anemia due to chronic blood loss,Cirrhosis of liver without ascites, unspecified hepatic cirrhosis type (HCC) sodium chloride 0.9 % flush central line 10 mL 10 mL, IV Push, PRN Other, IV Flush, Starting on Thu04/15/24 at 1130, Until 04/16/24 at 1129, For 24 hours, Do not flush if lock, PICC, or central line not in place; IV infusing or unable to flush.Indications:Iron deficiency anemia due to chronic blood loss,Cirrhosis of liver without ascites, unspecified hepatic cirrhosis type (HCC) Given 04/15/2024 1:17 PM EST 10 mL Inactive Administered Medications - up to 3 most recent administrations Medication Order MAR Action Action Date Dose Rate Site Iron Sucrose (Venofer) 300 mg in NSS 250 mL ivpb 300 mg, IV Piggyback, ONCE, 1 dose, On Thu04/15/24 at 1315, Administer over 90 MinutesIndications:Iron deficiency anemia due to chronic blood loss,Cirrhosis of liver without ascites, unspecified hepatic cirrhosis type (HCC) Start Infusion 04/15/2024 11:34 AM EST 300 mg 180 mL/hr documented in this encounter Advance Directives * [...] Power of Attor narda? No Care Teams Social Sciences Department Chair Relationship Specialty Start Date End Date Scott Weldon MD [address] [place] [address] PCP - General Family Medicine 08/03/18 documented as of this encounter
--- OUTSIDE RECORDS SUMMARY | 2024-05-13 05:10 | External Medical Summary ---
Author Name Unknown Address Unknown Organization K09:[facility] [place] [address] Laboratory Report Ordering Provider Test Date Status LUIS ANTONIO LEIVA 04/15/2024 11:12:42 Final Observation Date Value Abnormality Reference (Units ) Status SYNC LEUKOCYTES IN BLOOD BY AUTOMATED COUNT 04/15/2024 11:12:42 4.13 4.00-10.80 (K/uL) Final Segs 04/15/2024 11:12:42 61.5 40.0-75.0 (%) Final Lymphs % 04/15/2024 11:12:42 24.7 18.0-42.0 (%) Final Monos 04/15/2024 11:12:42 8.7 1.0-11.0 (%) Final Eosinophils 04/15/2024 11:12:42 4.4 0.0-6.0 (%) Final Basos 04/15/2024 11:12:42 0.7 0.0-2.0 (%) Final Absolute Segs 04/15/2024 11:12:42 2.54 1.80-7.70 (K/uL) Final Lymphs, absolute 04/15/2024 11:12:42 1.02 1.00-4.80 (K/ul) Final Monos, Abs 04/15/2024 11:12:42 0.36 0.00-1.10 (K/uL) Final Eos, Abs 04/15/2024 11:12:42 0.18 0.00-0.70 (K/uL) Final Basos, Abs 04/15/2024 11:12:42 0.03 0.00-0.20 (K/uL) Final Performing Location [facility] [place] [address]
--- OUTSIDE RECORDS SUMMARY | 2024-05-13 05:10 | External Medical Summary | Summary of Care ---
Author Name Unknown Organization [facility] Address [address] [place] [address] Phone [phone] Care Team Providers Care Ict Business Development Manager Name Role Phone Scott Weldon MD Primary Care Provider + Reason for Visit * Reason Comments Evaluation Psychiatric Encounter Details Date Type Department Care Team (Late st Contact Info) Description 04/14/2024 10:00 AM EST Telemedicine Psychiatry [facility] [address] [place] [address] Nhi Fritz CRNP [address] [place] [address] MICHELLE (generalized anxiety disorder)*; MDD (major depressive disorder), recurrent, in full remission ([facility]); PTSD (post-traumatic stress disorder) Allergies Active Allergy Reactions Criticality Noted Date Comments Naproxen Sodium Bleeding High 11/29/2013 Pollen 12/03/2022 Seasonal Food (See Comments) Anaphylaxis High 04/20/2019 Hot peppers (oils) Kiwi Extract Anaphylaxis High 04/20/2019 documented as of this encounter (statuses as of 04/14/2024) Medications Medication Sig Dispensed Refills Start Date End Date Status ONETOUCH ULTRASOFT LANCETS MISCIndications:DM type 2, not at goal ([facility]) check FS 6 times daily 4 Box [...] Strip 5 7 Active Insulin Infusion Pump (MINIMStrongSteam 630G INSULIN PUMP) KITIndications:Type 2 diabetes mellitus [...] suspected opioid overdose. Seek immediate medical attention. [email or web address] 1 Each 3 3 Active Loratadine 10 MG Oral [...] DAILY VIA PUMP 60 mL 3 Active Ondansetron 8 MG Oral Tablet Disintegrating (Zofran) PLACE 1 TABLET ON TONGUE AND DISSOLVE EVERY 8 HOURS NEEDED FOR NAUSEA 30 Tablet 4 Active Meclizine HCl 25 MG Oral Tablet (Antivert)Indicatio ns:Vertigo Take 1 Tablet by mouth 3 times a day as needed for Dizziness. 30 Tablet 1 4 Active Atenolol 25 MG Oral Tablet (Tenormin) Take 1 Tablet by mouth in the morning and 1 Tablet before bedtime. Active Potassium Chloride Laura ER 20 MEQ Oral Tablet Extended Release Take 1 Tablet by mouth in the morning. 90 Tablet 3 4 Active Magnesium Oxide -Mg Supplement 400 (240 Mg) MG Oral Tablet (Mag-Ox)Indications :Hypomagnesemia Take 1 Tablet by mouth in the morning. 90 Tablet 3 4 Active Atorvastatin Calcium 40 MG Oral Tablet (Lipitor)Indication s:Dyslipidemia, goal LDL below 100 Take 1 Tablet by mouth at bedtime. 90 Tablet 3 4 Active Pantoprazole Sodium 40 MG Oral Tablet Delayed Release (Protonix)Indicatio ns:Esophageal varices without bleeding, unspecified esophageal varices type (HCC),Colitis Take 1 Tablet by mouth in the morning. 90 Tablet 3 4 Active Pregabalin 100 MG Oral Capsule (Lyrica)Indications :Bilateral low back pain with sciatica, sciatica laterality unspecified, unspecified chronicity Take 1 Capsule by mouth in the morning and 1 Capsule at noon and 1 Capsule before bedtime. 300 Capsule 1 4 Active metFORMIN HCl 1000 MG Oral Tablet (Glucophage)Indicat ions:Type 2 diabetes mellitus with hemoglobin A1c goal of less than 8.0% (HCC) Take 1 Tablet by mouth daily with breakfast. 90 Tablet 3 4 Active Baclofen 10 MG Oral Tablet (Lioresal)Indicatio ns:Back spasm Take 1 Tablet by mouth in the morning and 1 Tablet at noon and 1 Tablet before bedtime. 90 Tablet 2 4 Active Furosemide 40 MG Oral Tablet (Lasix) Take 1 Tablet by mouth every other day. 50 Tablet 1 4 Active Empagliflozin 10 MG Oral Tablet (Jardiance)Indicati ons:Type 2 diabetes mellitus with hemoglobin A1c goal of less than 8.0% (HCC) Take 1 Tablet by mouth in the morning. 90 Tablet 3 4 Active Additional Information Patient not taking.Reported on 03/22/2024 Metoclopramide HCl 5 MG Oral Tablet (Reglan) Take 1 Tablet by mouth in the morning and 1 Tablet at noon and 1 Tablet in the evening. Take before meals. If needed for nausea. 300 Tablet 1 4 Active Albuterol Sulfate HFA 108 (90 Base) MCG/ACT Inhalation Aerosol Solution Inhale 2 Puffs by mouth every 6 hours as needed for Shortness of Breath. 18 g 5 4 Active Buprenorphine 5 MCG/HR Transdermal Patch Weekly (Butrans)Indication s:Controlled substance agreement signed,Chronic bilateral low back pain with sciatica, sciatica laterality unspecified,Chronic pain syndrome Place 1 Patch topically on the skin once a week. 4 Patch 4 Active traZODone HCl 100 MG Oral Tablet (Desyrel) Take 1-2 Tablets by mouth at bedtime. 180 Tablet 1 4 Active Escitalopram Oxalate 20 MG Oral Tablet (Lexapro) Take 1 Tablet by mouth in the morning. 90 Tablet 1 4 Active hydrOXYzine HCl 25 MG Oral Tablet TAKE 1 TABLET BY MOUTH DURING DAY EVERY 4-6 HOURS NEEDED FOR ANXIETY 450 Tablet 1 4 Active Eszopiclone 2 MG Oral Tablet (Lunesta) Take 1 Tablet by mouth at bedtime. Do not start before May 04, 2024. 30 Tablet 2 4 Active hydrOXYzine HCl 25 MG Oral TabletIndications:A nxiety TAKE 1 TABLET BY MOUTH DURING DAY EVERY 4-6 HOURS NEEDED FOR ANXIETY & 2 TABLETS AT BEDTIME NEEDED FOR ANXIETY 450 Tablet 1 4 04/14/20 24 Discontinu ed(Refill) Escitalopram Oxalate 20 MG Oral Tablet (Lexapro) Take 1 Tablet by mouth in the morning. 90 Tablet 1 4 04/14/20 24 Discontinu ed(Refill) traZODone HCl 100 MG Oral Tablet (Desyrel) Take 1-2 Tablets by mouth at bedtime. 180 Tablet 1 4 04/14/20 24 Discontinu ed(Refill) Eszopiclone 2 MG Oral Tablet (Lunesta) Take 1 Tablet by mouth at bedtime. 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 09/15/2008 10/03/2008 Malaise and fatigue [...] as of this encounter (statuses as of 04/14/2024) Immunizations Name Administration Dates Next Due COVID-19 mRNA, LNP-s, No Pre serve, 2-Dose Series ([facility]) 11/08/2020,10/11/2020 HEP A - Hepatitis A (Adult > 18 yrs) 04/11/2011, 09/20/2010 Hepatitis B, 20+ yrs 07/05/2015 Pneumococcal Conjugate Vacci ne, 20-valent ([id number]) 03/13/2023 Pneumococcal Polysaccharide PPV23 (Pneumovax) 02/19/2018,03/09/2007 Seasonal [...] as of this encounter Progress Notes * Nhi Fritz CRNP - 04/14/2024 10:00 AM EST OUTPATIENT BEHAVIORAL HEALTH INITIAL EVALUATION Patient location: HOME. I was not in a hospital or clinic location. After connecting through televideo, patient was verified with two unique identifiers. Patient (or authorized legal bilingual sales representative) was then informed that this was a Telemedicine visit and being conducted confidentially over secure lines. Methods to assure confidentiality were taken. Patient acknowledged consent and understanding of privacy and security of the Telemedicine visit. The patient agreed to participate. Provider determined this patient has capacity to receive and benefit from telehealth services. Face to Face Start Time: 9:56 AM Face to Face Stop Time: 10:56 Referral Source: was under the care of Rj Mai MD who left the practice Risk Assessment: No acute safety concerns History of Present Illness: Carmen Tyson is a 53 year old person who presented for a psych eval , she was under the care of Rj Mai MD who left the practice. Pt reported h/o anxiety and depression. She said after she had her now adult son, she had depression which wasn't properly treated so it worsened her mental health and that she has family h/o MH issues. Pt was guarded through out this encounter. She doesn't have a therapist because she doesn't like talking about her past. When asked about trauma, she said that she prefers not to talk about it. She denied any nightmares and flashbacks and said , "I suppressed it". She reported h/o taking [place]("Iwas afraid of it because of blood work"), and wellbutirn("I didn't like it, it made anxiety worse"). Per chart review, she has tried xanax, duloxetine, zoloft, gabapentin(h/o psuedo sz ), ativan (while IP), seroquel, effexor, depakote, celexa, and restoril. She has h/o inpt hospitalization x 3 for "what was going on at my job at the time, I didn't like the girls at my job" and have h/o SIB last was over 15 years ago. She deneid feeling depressed, rated it 0/10, and anxiety =4/10 which she said is manageable. She denied si, hi, VH, paranoia , and delusion. She reported when her blood pressure drops, she experiences AH, denied any today. She denied h/o tremaine and hypomania. Her appetite is poor and sleep is appropriate on current med regimen and c-pap. Pt experiences pain which is chronic , "is every where lately, am on uterine patches". She rated body pain 7/10. Pt has h/o liver cirrhosis. For pain, she uses Buprenorphine patch, and pregabalin. Per pdmp no red flag. She was last seen by Rj Mai MD care on 02/29/24, at that appointment, she felt stable likewise today's encounter. She takes Lexapro 20 daily, hydroxyzine: 25mg TID PRN-take up to thee times a day, Trazodone 200 mg QHS- used to take 400mg hs in the past, Lunesta 2 mg QHS for sleep picked on 04/05/24 per pdmp and she wear CPAP each night for DONNA. Plan to continue meds as is no change. She takes them and denied any s/e. Patient's last PHQ-9 score (Adult) - 0 and Patient's last MICHELLE-7 score - Total:7 Psychiatry Review of Systems: PSYCHIATRY REVIEW OF SYSTEMS Pain screening: Is patient experiencing any pain related to today's visit? Yes - chronic pain , every where lately on uterine patches, rated 7/10 Nutritional Screening: eats one meal a day Past Psychiatric History: Outpatient Treatment: H/o therapy, last was 15 year ago , "I dont trust people so much enough to open up' Inpatient Treatment: 3 times r/t "what was going on at my job at the time, I didn't like the girls at my job", last was years ago Self injury and suicide attempts: H/o SIB, last was 20 years Prior psychotropic medical trials: [place] Lawn("I was afraid of it because of blood work"), wellbutirn("I didn't like it, it made anxiety worse") , xanax, duloxetine, zoloft, gabapentin(h/o psuedo sz ), ativan (while IP), seroquel, effexor, depakote, celexa, restoril History of trauma, abuse, exploitation or trafficking: "I dont talk about it" Substance Use History: Denied substance and alcohol and cigg use Family Psychiatric History: Psychiatric diagnoses: Mother- had mental illness Attempted suicides/ by suicide:None Drug and alcohol abuse: None Personal, Family and Social History: Living situation: Education/Employment: SSDI since 2010 History: None Legal History: None Intellectual Disability Diagnosis: No Activities of Daily Living: Good Additional community service involvement: None Leisure and recreational interest: goal : "get through every day situation and life"-feels meds arehelping her at this time, coping skills : in summer, will lay in sun, in winter "I fight a little harder to do something, I joined [employer] club, and in the mall, I walk with my mother in law, and I got approved for Navigator[employer] walker" Adventist/Spiritual Orientation: [employer] Medical History: I have reviewed the patient's allergies, past medical/surgical history, and current medications. Past Medical History: Diagnosis Date Abdominal pain, generalized 09/08/2012 Ascites 09/08/2012 ASCVD (arteriosclerotic cardiovascular disease) Benign neoplasm of stomach 07/27/2012 fundic polyp-repeat EGD in 1 yr Bipolar I disorder, most recent episode depressed, moderate (HCC) Dr Zoraida Hidalgo Chronic pain syndrome 11/28/2015 Cirrhosis of liver without ascites (HCC) 02/07/2016 Diabetes mellitus with background retinopathy (HCC) 12/24/20192019 telemed images, mild DM type 2, not at goal (HCC) 03/05/2010 Encounter for care related to vascular access port 01/21/2018 Gastroparesis 09/10/2017 History of 2019 novel coronavirus disease (COVID-19) 09/03/2020 HTN, goal below 130/80 03/05/2010 Insomnia, unspecified Insulin pump in place 05/05/2017 Kidney stone 2012 x 2 Left hemiplegia (HCC) 10/06/2018 Liver masses 09/02/2018 Migraine variant, intractable MENDEZ (nonalcoholic steatohepatitis) 11/22/2014 Nonintractable generalized idiopathic epilepsy without status epilepticus (HCC) 03/09/2019 OBSTRUCTIVE SLEEP APNEA (ADULT) - ON CPAP 12/1402/25/2010 Other specified disorders of liver 03/2010 fatty liver Pain of upper abdomen 03/03/2012 Pneumonia due to COVID-19 virus 09/10/2020 Reflux 07/27/2012 Sleep apnea, obstructive Stroke (HCC) 2012 Syncope and collapse Tachycardia Type 2 diabetes mellitus with hemoglobin A1c goal of less than 8.0% (HCC) 06/22/2014 , Past Surgical History: Procedure Laterality Date COLONOSCOPY, DIAGNOSTIC (RECTUM) 06/06/2010 normal colon exam repeat in 5 years COLONOSCOPY, DIAGNOSTIC (RECTUM) 06/27/2015 retained stool, repeat/COLONOSCOPY FLEXIBLE PROXIMAL DIAGNOSTIC performed by Aj Pruett DO at[facility] COLONOSCOPY, DIAGNOSTIC (RECTUM) 10/05/2023 hemorrhoids/biopsies show hyperplastic and inflammatory tissue/recall 5 years/COLONOSCOPY FLEXIBLE PROXIMAL DIAGNOSTIC performed by Aj Pruett DO at ENDOSCOPY [facility] EGD, FLEXIBLE, DIAGNOSTIC 01/22/2011 UPPER GI ENDOSCOPY DIAGNOSTIC performed by STACEY BENNETT at [facility] EGD, FLEXIBLE, DIAGNOSTIC 01/19/2014 portal hypertensive gastropathy, benign gastric polyp, repeat 2 yrs/done @ [facility] EGD, FLEXIBLE, DIAGNOSTIC 02/08/2016 normal bx, portal hypertensive gastropathy, repeat 1.5 yrs/[facility] EGD, FLEXIBLE, DIAGNOSTIC 08/25/2017 retained food, repeat 1 yr/ESOPHAGOGASTRODUODENOSCOPY (EGD), FLEXIBLE, TRANSORAL, DIAGNOSTIC performed by Aj Pruett DO at ENDOSCOPY [facility] EGD, FLEXIBLE, DIAGNOSTIC 12/15/2018 esophageal varices, gastritis, gastric polyp, repeat 1 yr/ESOPHAGOGASTRODUODENOSCOPY (EGD), FLEXIBLE, TRANSORAL, DIAGNOSTIC performed by Aj Pruett DO at [facility]COPY [facility] EGD, FLEXIBLE, DIAGNOSTIC 01/31/2020 fundic polyps, eso varices, portal hypertensive gastropathy, repeat 1 yr / ESOPHAGOGASTRODUODENOSCOPY (EGD), FLEXIBLE, TRANSORAL, DIAGNOSTIC performed by Aj Pruett DO at ENDOSCOPY [facility] EGD, FLEXIBLE, DIAGNOSTIC 10/09/2022 grade I esophageal varices/portal hypertension gastropathy/medium amount of food in stomach/ESOPHAGOGASTRODUODENOSCOPY (EGD), FLEXIBLE, TRANSORAL, DIAGNOSTIC performed by Aj Pruett DO at ENDOSCOPY [facility] EGD, FLEXIBLE, DIAGNOSTIC 10/05/2023 grade II esophageal varices/portal hypertensive gastropathy/multiple gastric polyps, resected and retrieved, clips placed/biopsies show fundic polyps/repeat 6 months/ESOPHAGOGASTRODUODENOSCOPY (EGD),FLEXIBLE, TRANSORAL, DIAGNOSTIC performed by Aj Pruett DO at [facility]COPY [facility] EGD, FLEXIBLE, DIAGNOSTIC 03/25/2024 grade II esophageal varices/portal hypertensive gastropathy/several endoclips stomach/multiple gastric polyps/biopsies show fundic polyps/recall 12-18 months/ESOPHAGOGASTRODUODENOSCOPY (EGD), FLEXIBLE, TRANSORAL, DIAGNOSTIC performed by Aj Pruett DO at [facility]COPY [facility] EGD, FLEXIBLE, W/BIOPSY 07/27/2012 small fundic stomach polyp/inflammation r/t reflux-repeat EGD in 1 yr EGD, W/ENDOSCOPIC US 01/22/2011 UPPER GI ENDOSCOPY ENDOSCOPIC ULTRASOUND performed by STACEY BENNETT at [facility] EVAL NEUROSTIM PULSE GEN, W/ REPROGRAM N/A 06/27/2022 NEUROSTIMULATOR PULSE GENERATOR/ TRANSMITTER, WITH INTRAOPERATIVE OR SUBSEQUENT PROGRAMMING performed by Rafia Small MD at [facility] EVAL NEUROSTIM PULSE GEN, W/ REPROGRAM N/A 08/22/2022 NEUROSTIMULATOR PULSE GENERATOR/ TRANSMITTER, WITH INTRAOPERATIVE OR SUBSEQUENT PROGRAMMING performed by Rafia Small MD at [facility] HYSTEROSCOPY,DIAGNOSTIC 07/16/2006 NovaSure endomentrial ablation IMPLANT EPIDURAL NEUROELECTRODES N/A 06/27/2022 PERCUTANEOUS IMPLANTATION NEUROSTIMULATOR EPIDURAL performed by Rafia Small MD at OR [facility] IMPLANT EPIDURAL NEUROELECTRODES N/A 08/22/2022 PERCUTANEOUS IMPLANTATION NEUROSTIMULATOR EPIDURAL performed by Rafia Small MD at OR [facility] IMPLANT SPINAL NEURORECEIVER N/A 08/22/2022 INSERTION OR REPLACEMENT SPINAL NEUROSTIMULATOR GENERATOR performed by Rafia Small MD [facility] INJECT DX/THER SUBSTANCE INTERLAMINAR LUMBAR/SACRAL W IMAGE GUIDE 04/13/2017 INJECTION SPINE LUMBAR OR SACRAL performed by Rene Kate DO at OR [facility] INJECT DX/THER SUBSTANCE INTERLAMINAR LUMBAR/SACRAL W IMAGE GUIDE 12/10/2017 INJECTION SPINE LUMBAR OR SACRAL performed by Rene Kate DO at OR [facility] INSER TUNN ACC DEV;5 YRS/OLDER 03/24/2013 03/24/2013 at [facility], Placement of A-Port central venous access catheter with port Dr. Dewitt IOF CT GUIDED NEEDLE BIOPSY 07/11/2010 CT GUIDED NEEDLE ASPIRATION BIOPSY performed by JAMILA SAWANT at [facility] LIGATE/CUT OVIDUCT(S) 07/1995 , and Review of patient's allergies indicates: Allergen Reactions Aleve [Naproxen Sodium] Bleeding Food (See Comments) Anaphylaxis Hot peppers (oils) Kiwi Extract Anaphylaxis Environmental [Pollen] Seasonal Cardiac History: Yes H/o tachycardia Head Injury: Yes h/o stroke in 2012 Seizures: No Uses a cane to ambulate Recent labs/imaging: Relevant labs reviewed Mental Status Evaluation: Appearance: Well groomed, casually dressed, appearing stated age Abnormal Movement: No abnormal movements noted Behavior: Calm, cooperative and appropriate Speech and Language: Normal in rate, rhythm, volume and tone Mood: Euthymic Affect: Appropriate to context and mood-congruent Thought Process: Logical, linear and goal directed Thought Content: No abnormal thought content Hallucinations: No perceptual disturbances Suicidality: No suicidal ideations, intent, method or plan or passive wish Homicidality: No homicidal ideations, intent, plan or target Orientation: Oriented to self, time, place and circumstances Attention: Intact Recent and Remote memory:Intact Insight: Good Judgement: Good Fund of Knowledge: Good Assessment/Formulation: Patient presented with symptoms sig for PTSD, MICHELLE and MDD, in remission Diagnosis: PTSD, MICHELLE and MDD, in remission Plan: Medications: continue Lexapro 20 daily, hydroxyzine: 25mg TID PRN-take up to thee times a day, Trazodone 200 mg QHS, Lunesta 2 mg QHS and on lyrica and buprenorphine patch for pain, Therapy: declined need for therapy, finds it hard to open up to people, will continue to encourage Community Resources: n/a Lab tests/Medical: none ordered Safety: no safety concern, in case of emergency, call 911 or go to the nearest ER or CRC Return in: 4-8 weeks and earlier as needed Continue to f/u with pcp regularly Information about current meds reviewed/provided /offered. Provider reviewed risks/benefits/side effects and potential complications. Recommended to not change meds/dosage without medical advise. Treatment options and recommendations/interventions reviewed. Patient and/or caregiver verbalize understanding and agrees to plan with explanation of risks/benefits, aware of how to contact clinic with questions. documented in this encounter Plan of Treatment Upcoming Encounters Date Type Department Care Team (Late st Contact Info) Description 04/15/2024 11:00 AM EST Nurse Only Hematology/Oncology Treatment, [address] [place] [address] Nora, Chair 3 Hem Onc [address] [place] [address] 04/21/2024 1:00 PM EST Office Visit Pharmacy, [address] [place] [address] [address] 04/28/2024 11:00 AM EST Telemedicine Pharmacy, [facility] [address] [place] [address] [facility] [address] [facility] [place] [address] 05/12/2024 8:00 AM EST Imaging [facility]nd [facility] [address] [facility] [place] [phone] 06/03/2024 1:40 PM EST Office Visit Nephrology, [facility] [address] [place] [address] Jonathan Mathew MD [address] [place] [address] 06/30/2024 8:00 AM EST Office Visit Family Practice [facility] [address] [facility] [place] [address] Scott Weldon MD [address] [facility] [place] [address] 06/30/2024 1:20 PM EST Office Visit Hepatology, [facility] [address] [facility] [place] [address] Jazzy Chu DO [address] [place] [address] 07/07/2024 9:30 AM EST Telemedicine Psychiatry [facility] [address] [place] [phone] Nhi Fritz CRNP [address] [place] [address] 07/08/2024 10:30 AM EST Telemedicine Gastroenterology, [facility] [address] [facility] [place] [address] dAam Bradshaw CRNP [address] [place] [address] 09/14/2024 2:00 PM EDT Office Visit Hematology/Oncology [facility] [address] [place] [phone] Sunil Bourgeois MD [address] [place] [address] 12/14/2024 12:20 PM EDT Office Visit Family [facility] [address] [place] [address] Scott Weldon MD [address] [place] [address] Scheduled Procedures Name Priority Associated Diagnoses Date/Ti [...] this encounter Medical Devices Implanted Type Area Necktie Operator Pockets And Pieces Device Identifier Shelf Expiration Date Model / Serial / Lot Neurostimul Intellis Adaptiv - [id number] - [id number] Implanted:Qty: 1 on 08/22/2022 by Rafia Small MD at [facility] N/A: Spine Lumbar [employer] 06/21/2023 [id number] / [id number] / Description:battery Medtronic Lead Kit 60 Cm Implanted:Qty: 1 on 08/22/2022 by Rafia Small MD at OR [facility] N/A: Spine Lumbar 02/01/2026 [id number] / / [id number] Medtronic Lead Kit 60cm Implanted:Qty: 1 on 08/22/2022 by Rafia Small MD at OR [facility] N/A: Spine Lumbar 03/21/2026 [id number] / / [id number] Envelope Tyrx Med Antibacteril - [id number] Implanted:Qty: 1 on 08/22/2022 by Rafia Small MD at OR [facility] N/A: Spine Lumbar [employer] 03/10/2023 [id number] / / [id number] Hemostatic Clip Res 235cm - [id number] Implanted:Qty: 4 on 10/05/2023 by Aj Pruett DO at [facility]COPY [facility] END[facility]COPY 02/03/2026 [id number] / / Hemostatic Clip Res 235cm - [id number] Implanted:Qty: 1 on 10/05/2023 by Aj Pruett DO at ENDOSCOPY [facility] : ENDOSCOPY 02/02/2026 [id number] / / documented as of this encounter Visit Diagnoses Diagnosis MICHELLE (generalized anxiety disorder)- Primary Generalized anxiety disorder MDD (major depressive disorder), recurrent, in full remission (HCC) Major depressive disorder, recurrent episode, in full remission PTSD (post-traumatic stress disorder) Posttraumatic stress disorder documented in this encounter Advance Directives * [...] Power of Attor narda? No Care Teams Ict Business Development Manager Relationship Specialty Start Date End Date Scott Weldon MD [address] [place] [address] PCP - General Family Medicine 08/03/18 documented as of this encounter
--- OUTSIDE RECORDS SUMMARY | 2024-05-13 05:10 | External Medical Summary | Summary of Care ---
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) Use as directed. 07/30/19 18 Active [...] suspected opioid overdose. Seek immediate medical attention. [email or web address]?[email or web address] 1 Each 3 11/28/19 23 Active Loratadine [...] ciated with type 2 diabetes mellitus 08/24/2019 MIHCELLE (generalized anxiety disorder) 06/09/2019 Recurrent major depressive [...] (09/03/2009): Per Obesity Taxonomy Coronary atherosclerosis of [place] coronary artery 09/15/2008 10/03/2008 Malaise and fatigue [...] mRNA, LNP-s, No Pre serve, 2-Dose Series (Signiant) 11/08/2020,10/11/2020 HEP A - Hepatitis A (Adult > 18 yrs) 04/11/2011, 09/20/2010 Hepatitis B, 20+ yrs 07/05/2015 Pneumococcal Conjugate Vacci ne, 20-valent ([id number]) 03/13/2023 Pneumococcal Polysaccharide PPV23 (Pneumovax) 02/19/2018,03/09/2007 Seasonal [...] Description 04/21/2024 1:00 PM EST Office Visit Pharmacy[address] [address] 04/28/2024 11:00 AM EST Telemedicine Pharmacy, [facility] [address] [address] [place] [address] 05/12/2024 8:00 AM EST Imaging [facility] 2nd Floor Cardiology, [place] 132 [facility] [place] [phone] 06/03/2024 1:40 PM EST Office Visit NephrologyRoney [address] [place] [address] Jonathan Mathew MD [address] [place] [address] 06/30/2024 8:00 AM EST Office Visit Family Practice [facility] 132 [facility] [place] [address] Scott Weldon MD [address] [place] [address] 06/30/2024 1:20 PM EST Office Visit Hepatology, [facility] [place] [address] Jazzy Chu DO [address] [place] [address] 07/07/2024 9:30 AM EST [facility]icine [facility] [address] [place] [address] Nhi Fritz CRNP [address] [place] [address] 07/08/2024 10:30 AM EST Telemedicine Gastroenterology, [facility] 132 [facility] [place] [address] Adam Bradshaw CRNP [address] [place], [place] [address] 09/14/2024 2:00 PM EDT Office Visit Hematology/Oncology [facility] [address] [place] [phone] Sunil Bourgeois MD [address] [facility] [place] [address] 12/14/2024 12:20 PM EDT Office Visit Family Practice [facility] [place] [address] Scott Weldon MD [address] [facility] [place] [address] Pending Results Name Type Priority Associated Diagnoses [...] this encounter Medical Devices Implanted Type Area Administrative Volunteer Device Identifier Shelf Expiration Date Model / Serial / Lot Neurostimul Intellis Adaptiv - [id number] - [id number] Implanted:Qty: 1 on 08/22/2022 by Rafia Small MD at OR [facility] N/A: Spine Lumbar [employer] 06/21/2023 [id number] / [id number] / Description:battery Medtronic Lead Kit 60 Cm Implanted:Qty: 1 on 08/22/2022 by Rafia Small MD at OR [facility] N/A: Spine Lumbar 02/01/2026 [id number] / / [id number] Medtronic Lead Kit 60cm Implanted:Qty: 1 on 08/22/2022 by Rafia Small MD at OR [facility] N/A: Spine Lumbar 03/21/2026 [id number] / / [id number] Envelope Tyrx Med Antibacteril - [id number] Implanted:Qty: 1 on 08/22/2022 by Raifa Small MD at OR [facility] N/A: Spine Lumbar [employer] 03/10/2023 [id number] / / [id number] Hemostatic Clip Res 235cm - [id number] Implanted:Qty: 4 on 10/05/2023 by Aj Pruett, at ENDOSCOPY [facility] : ENDOSCOPY 02/03/2026 [id number] / / Hemostatic Clip Res 235cm - [id number] Implanted:Qty: 1 on 10/05/2023 by Aj Pruett, DO at ENDOSCOPY [facility] [employer] : ENDOSCOPY 02/02/2026 [id number] / / documented as of this encounter [...] TECHNOLOGIST REVIEW (04/15/2024 11:12 AM EST) Pathologist [facility] 04/15/2024 11:55 AM EST [facility] 56-02 Elliptocytes Moderate(A ) None Seen 04/15/2024 11:55 AM EST [facility] 56-02 Blood Venous blood specimen / Unknown Central Line / Unknown 04/15/2024 11:12 AM EST 04/15/2024 11:39 AM EST us Sunil Bourgeois MD LAB BLOOD ORDERABLES Final Res ult [facility] 56-[address] [place] [address] * DIFFERENTIAL, AUTOMATED (04/15/2024 11:12 AM EST) Pathologist [facility] WBC 4.13 4.00 - 10.80 K/uL 04/15/2024 11:55 AM [facility] 56-02 Neutrophils % 61.5 40.0 - 75.0 % 04/15/2024 11:55 AM [facility] 56-02 Lymphocytes % 24.7 18.0 - 42.0 % 04/15/2024 11:55 AM [facility] 56-02 Monocytes % 8.7 1.0 - 11.0 % 04/15/2024 11:55 AM [facility] 56-02 Eosinophils % 4.4 0.0 - 6.0 % 04/15/2024 11:55 AM [facility] 56-02 Basophils % 0.7 0.0 - 2.0 % 04/15/2024 11:55 AM [facility] 56-02 Absolute Neutrophils 2.54 1.80 - 7.70 K/uL 04/15/2024 11:55 AM [facility] 56-02 Absolute Lymphocytes 1.02 1.00 - 4.80 K/ul 04/15/2024 11:55 AM [facility] 56-02 Absolute Monocytes 0.36 0.00 - 1.10 K/uL 04/15/2024 11:55 AM [facility] 56-02 Absolute Eosinophils 0.18 0.00 - 0.70 K/uL 04/15/2024 11:55 AM [facility] 56-02 Absolute Basophils 0.03 0.00 - 0.20 K/uL 04/15/2024 11:55 AM [facility] 56-02 Blood Venous blood specimen / Unknown Central Line / Unknown 04/15/2024 11:12 AM EST 04/15/2024 11:39 AM EST us Sunil Bourgeois MD LAB BLOOD ORDERABLES Final Res ult [facility] 56-[address] [place] [address] * (ABNORMAL) CBC (04/15/2024 11:12 AM EST) WBC 4.13 4.00 - 10.80 K/uL 04/15/2024 11:55 AM [facility] 56 RBC 4.14 3.85 - 5.15 M/uL 04/15/2024 11:55 AM [facility] 56 HGB 11.0(L) 12.0 - 15.3 g/dL 04/15/2024 11:55 AM [facility] 56 HCT 35.4(L) 36.0 - 45.2 % 04/15/2024 11:55 AM [facility] 56 MCV 85.5 81.5 - 97.5 fL 04/15/2024 11:55 AM [facility] 56 MCH 26.6 27.0 - 34.0 pg 04/15/2024 11:55 AM [facility] 56 MCHC 31.1 32.0 - 36.0 g/dL 04/15/2024 11:55 AM [facility] 56 RDW 16.7 11.5 - 15.5 % 04/15/2024 11:55 AM [facility] 56 PLT 71(L) 140 - 400 K/uL 04/15/2024 11:55 AM [facility] 56 MPV 10.0 6.6 - 11.1 fL 04/15/2024 11:55 AM [facility] 56 Blood Venous blood specimen / Unknown Central Line / Unknown 04/15/2024 11:12 AM EST 04/15/2024 11:39 AM EST us Sunil Bourgeois MD LAB BLOOD ORDERABLES Final Res ult [facility] 56- 200 [place] [address] documented in this encounter Visit [...] Power of Attor narda? 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
--- OUTSIDE RECORDS SUMMARY | 2024-05-13 05:10 | External Medical Summary | Summary of Care ---
Author Name Unknown Organization [facility] Address [address] [facility] [place] [address] Phone [phone] Care Team Providers Care Repertoire Manager Name Role Phone Scott Weldon MD Primary Care Provider + Reason for Visit * Reason Comments IV Therapy Venofer Encounter Details Date Type Department Care Team (Late st Contact Info) Description 04/15/2024 11:00 AM EST Nurse Only Hematology/Oncology Treatment, [address] [address] [place], Chair [address] Hem On[address] [phone] IV Therapy (Venofer) Allergies Active Allergy Reactions [...] [facility]) Use as directed. 07/30/19 18 Active CPAP [...] suspected opioid overdose. Seek immediate medical attention. [email or web address]?[email or web address] 1 Each 3 11/28/19 23 Active Loratadine [...] mRNA, LNP-s, No Pre serve, 2-Dose Series (Mobile Automation) 11/08/2020,10/11/2020 HEP A - Hepatitis A (Adult > 18 yrs) 04/11/2011, 09/20/2010 Hepatitis B, 20+ yrs 07/05/2015 Pneumococcal Conjugate Vacci ne, 20-valent ([id number]) 03/13/2023 Pneumococcal Polysaccharide PPV23 (Pneumovax) 02/19/2018,03/09/2007 Seasonal [...] Author Yes 04/20/2019 10:25 AM EST Teresa Mooer LPN * Do you have difficulty dressing [...] Description 04/21/2024 1:00 PM EST Office Visit Pharmacy[address] [address] 04/28/2024 11:00 AM EST Telemedicine Pharmacy, [facility] [address] [address] [place] [address] 05/12/2024 8:00 AM EST Imaging [facility] 2nd Floor Cardiology, [place] 132 [facility] [place] [address] 06/03/2024 1:40 PM EST Office Visit NephrologyRoney [address] [place] [address] Jonathan Mathew MD [address] [place] [address] 06/30/2024 8:00 AM EST Office Visit Family Practice [facility] [address] [facility] [place] [address] Scott Weldon MD [address] [place] [address] 06/30/2024 1:20 PM EST Office Visit Hepatology, [facility] [address] [facility] [address] Jazzy Chu DO [address] [place] [address] 07/07/2024 9:30 AM EST [facility]icine [facility] [address] [place] [address] Nhi Fritz CRNP [address] [place] [address] 07/08/2024 10:30 AM EST Telemedicine Gastroenterology, [facility] 132 [facility] [place] [address] Adam Bradshaw CRNP [address] [place], [place] [address] 09/14/2024 2:00 PM EDT Office Visit Hematology/Oncology [facility] 200 [facility] [place] [phone] Sunil Bourgeois MD 200 [facility] [place] [address] 12/14/2024 12:20 PM EDT Office Visit Family Practice [facility] [place] [address] Scott Weldon MD [address] [facility] [place] [address] Pending Results Name Type Priority Associated Diagnoses [...] this encounter Medical Devices Implanted Type Area Machine Specialist Device Identifier Shelf Expiration Date Model / Serial / Lot Neurostimul Intellis Adaptiv - [id number] - [id number] Implanted:Qty: 1 on 08/22/2022 by Rafia Small MD at OR [facility] N/A: Spine Lumbar [employer] 06/21/2023 [id number] / [id number] / Description:battery Medtronic Lead Kit 60 Cm Implanted:Qty: 1 on 08/22/2022 by Rafia Small MD at OR [facility] N/A: Spine Lumbar 02/01/2026 [id number] / / [id number] Medtronic Lead Kit 60cm Implanted:Qty: 1 on 08/22/2022 by Rafia Small MD at OR [facility] N/A: Spine Lumbar 03/21/2026 [id number] / / [id number] Envelope Tyrx Med Antibacteril - [id number] Implanted:Qty: 1 on 08/22/2022 by Rafia Small MD at OR [facility] N/A: Spine Lumbar [employer] 03/10/2023 [id number] / / [id number] Hemostatic Clip Res 235cm - [id number] Implanted:Qty: 4 on 10/05/2023 by Aj Pruett, at ENDOSCOPY [facility] [employer] : ENDOSCOPY 02/03/2026 [id number] / / Hemostatic Clip Res 235cm - [id number] Implanted:Qty: 1 on 10/05/2023 by Aj Pruett, DO at ENDOSCOPY [facility] [employer] : ENDOSCOPY 02/02/2026 [id number] / / documented as of this encounter [...] TECHNOLOGIST REVIEW (04/15/2024 11:12 AM EST) Pathologist [facility] 04/15/2024 11:55 AM EST [facility] 56-02 Elliptocytes Moderate(A ) None Seen 04/15/2024 11:55 AM EST [facility] 56-02 Blood Venous blood specimen / Unknown Central Line / Unknown 04/15/2024 11:12 AM EST 04/15/2024 11:39 AM EST us Sunil Bourgeois MD LAB BLOOD ORDERABLES Final Res ult [facility] 56-[address] [place] [address] * DIFFERENTIAL, AUTOMATED (04/15/2024 11:12 AM EST) Pathologist [facility] WBC 4.13 4.00 - 10.80 K/uL 04/15/2024 11:55 AM [facility] 56-02 Neutrophils % 61.5 40.0 - 75.0 % 04/15/2024 11:55 AM [facility] 56-02 Lymphocytes % 24.7 18.0 - 42.0 % 04/15/2024 11:55 AM [facility] 56-02 Monocytes % 8.7 1.0 - 11.0 % 04/15/2024 11:55 AM [facility] 56-02 Eosinophils % 4.4 0.0 - 6.0 % 04/15/2024 11:55 AM [facility] 56-02 Basophils % 0.7 0.0 - 2.0 % 04/15/2024 11:55 AM [facility] 56-02 Absolute Neutrophils 2.54 1.80 - 7.70 K/uL 04/15/2024 11:55 AM [facility] 56-02 Absolute Lymphocytes 1.02 1.00 - 4.80 K/ul 04/15/2024 11:55 AM [facility] 56-02 Absolute Monocytes 0.36 0.00 - 1.10 K/uL 04/15/2024 11:55 AM [facility] 56-02 Absolute Eosinophils 0.18 0.00 - 0.70 K/uL 04/15/2024 11:55 AM [facility] 56-02 Absolute Basophils 0.03 0.00 - 0.20 K/uL 04/15/2024 11:55 AM [facility] 56-02 Blood Venous blood specimen / Unknown Central Line / Unknown 04/15/2024 11:12 AM EST 04/15/2024 11:39 AM EST us Sunil Bourgeois MD LAB BLOOD ORDERABLES Final Res ult [facility] 56-[address] [place] [address] * (ABNORMAL) CBC (04/15/2024 11:12 AM EST) WBC 4.13 4.00 - 10.80 K/uL 04/15/2024 11:55 AM [facility] 56 RBC 4.14 3.85 - 5.15 M/uL 04/15/2024 11:55 AM [facility] 56 HGB 11.0(L) 12.0 - 15.3 g/dL 04/15/2024 11:55 AM [facility] 56 HCT 35.4(L) 36.0 - 45.2 % 04/15/2024 11:55 AM [facility] 56 MCV 85.5 81.5 - 97.5 fL 04/15/2024 11:55 AM [facility] 56 MCH 26.6 27.0 - 34.0 pg 04/15/2024 11:55 AM [facility] 56 MCHC 31.1 32.0 - 36.0 g/dL 04/15/2024 11:55 AM [facility] 56 RDW 16.7 11.5 - 15.5 % 04/15/2024 11:55 AM [facility] 56 PLT 71(L) 140 - 400 K/uL 04/15/2024 11:55 AM [facility] 56 MPV 10.0 6.6 - 11.1 fL 04/15/2024 11:55 AM [facility] 56 Blood Venous blood specimen / Unknown Central Line / Unknown 04/15/2024 11:12 AM EST 04/15/2024 11:39 AM EST us Sunil Bourgeois MD LAB BLOOD ORDERABLES Final Res ult [facility] 56- [address] [place] [address] documented in this encounter Visit [...] Power of Attor narda? No Care Teams Repertoire Manager Relationship Specialty Start Date End Date Scott Weldon MD [address] [place] [address] PCP - General Family Medicine 08/03/18 documented as of this encounter
--- OUTSIDE RECORDS SUMMARY | 2024-05-13 05:11 | External Medical Summary | Summary of Care ---
Author Name Unknown Organization [facility] Address [address] [facility] [place] [address] Phone [phone] Care Team Providers Care [employer] Name Role Phone Scott Weldon MD Primary Care Provider + Reason for Visit * Auth/Cert Specialty Diagnoses / Procedures Referred By Dory payan Referred To Contact Diagnoses Portal hypertensive gastropathy (HCC) Multiple gastric polyps Portal hypertensive gastropathy (HCC) [K76.6, K31.89] Multiple gastric polyps [K31.7] Procedures EGD, FLEXIBLE, DIAGNOSTIC ESOPHAGOGASTRODUODENOSCOPY (EGD), FLEXIBLE, TRANSORAL, DIAGNOSTIC Aj Pruett DO [address] [place] [address] [facility] [address] [place] [phone] Referral ID Status Reason Start Date Expiration Date Visits Re quested Visits Authorized [id number] Encounter Details Date Type Department Care Team (Latest Contact Info) Description 03/25/2024 10:31 AM EDT - 03/25/2024 12:00 PM EDT Hospital Encounter [facility], Endoscopy Room [facility] [address] [place] [phone] Aj Pruett DO [address] [place] [address] Upper GI Endoscopy Discharge Disposition: Home - Self Care Allergies Active Allergy Reactions Criticality Noted Date Comments Naproxen Sodium Bleeding High 11/29/2013 Pollen 12/03/2022 Seasonal Food (See Comments) Anaphylaxis High 04/20/2019 Hot peppers (oils) Kiwi Extract Anaphylaxis High 04/20/2019 documented as of this encounter (statuses as of 03/26/2024) Medications Medication Sig Dispensed Refills Start Date [...] Strip 5 02/17/2017 Active Insulin Infusion Pump ([id number] 630G INSULIN PUMP) KITIndications:Type 2 diabetes mellitus with hemoglobin A1c goal of less than 8.0% ([facility]) Use as directed. 07/30/2017 Active CPAP every [...] suspected opioid overdose. Seek immediate medical attention. [email or web address]://[email or web address] .com/watch?v=v26cDa [email or web address] 1 Each 3 11/27/2022 Active Loratadine 10 MG Oral Tablet (Claritin)Indicatio [...] DAILY VIA PUMP 60 mL 05/05/2023 Active Ondansetron 8 MG Oral Tablet Disintegrating (Zofran) PLACE 1 TABLET ON TONGUE AND DISSOLVE EVERY 8 HOURS NEEDED FOR NAUSEA 30 Tablet 08/10/2023 Active Meclizine HCl 25 MG Oral Tablet (Antivert)Indicatio ns:Vertigo Take 1 Tablet by mouth 3 times a day as needed for Dizziness. 30 Tablet 1 02/03/2024 Active Atenolol 25 MG Oral Tablet (Tenormin) Take 1 Tablet by mouth in the morning and 1 Tablet before bedtime. Active Potassium Chloride Laura ER 20 MEQ Oral Tablet Extended Release Take 1 Tablet by mouth in the morning. 90 Tablet 3 02/12/2024 Active Magnesium Oxide -Mg Supplement 400 (240 Mg) MG Oral Tablet (Mag-Ox)Indications :Hypomagnesemia Take 1 Tablet by mouth in the morning. 90 Tablet 3 02/12/2024 Active Atorvastatin Calcium 40 MG Oral Tablet (Lipitor)Indication s:Dyslipidemia, goal LDL below 100 Take 1 Tablet by mouth at bedtime. 90 Tablet 3 02/12/2024 Active Pantoprazole Sodium 40 MG Oral Tablet Delayed Release (Protonix)Indicatio ns:Esophageal varices without bleeding, unspecified esophageal varices type (HCC),Colitis Take 1 Tablet by mouth in the morning. 90 Tablet 3 02/12/2024 Active Pregabalin 100 MG Oral Capsule (Lyrica)Indications :Bilateral low back pain with sciatica, sciatica laterality unspecified, unspecified chronicity Take 1 Capsule by mouth in the morning and 1 Capsule at noon and 1 Capsule before bedtime. 300 Capsule 1 02/13/2024 Active hydrOXYzine HCl 25 MG Oral TabletIndications:A nxiety TAKE 1 TABLET BY MOUTH DURING DAY EVERY 4-6 HOURS NEEDED FOR ANXIETY & 2 TABLETS AT BEDTIME NEEDED FOR ANXIETY 450 Tablet 1 02/14/2024 Active metFORMIN HCl 1000 MG Oral Tablet (Glucophage)Indicat ions:Type 2 diabetes mellitus with hemoglobin A1c goal of less than 8.0% (HCC) Take 1 Tablet by mouth daily with breakfast. 90 Tablet 3 02/14/2024 Active Escitalopram Oxalate 20 MG Oral Tablet (Lexapro) Take 1 Tablet by mouth in the morning. 90 Tablet 1 02/18/2024 Active Baclofen 10 MG Oral Tablet (Lioresal)Indicatio ns:Back spasm Take 1 Tablet by mouth in the morning and 1 Tablet at noon and 1 Tablet before bedtime. 90 Tablet 2 02/18/2024 Active traZODone HCl 100 MG Oral Tablet (Desyrel) Take 1-2 Tablets by mouth at bedtime. 180 Tablet 1 02/18/2024 Active Furosemide 40 MG Oral Tablet (Lasix) Take 1 Tablet by mouth every other day. 50 Tablet 1 02/19/2024 Active Empagliflozin 10 MG Oral Tablet (Jardiance)Indicati ons:Type 2 diabetes mellitus with hemoglobin A1c goal of less than 8.0% (HCC) Take 1 Tablet by mouth in the morning. 90 Tablet 3 02/26/2024 Active Additional Information Patient not taking.Reported on 03/22/2024 Metoclopramide HCl 5 MG Oral Tablet (Reglan) Take 1 Tablet by mouth in the morning and 1 Tablet at noon and 1 Tablet in the evening. Take before meals. If needed for nausea. 300 Tablet 1 02/26/2024 Active Eszopiclone 2 MG Oral Tablet (Lunesta) Take 1 Tablet by mouth at bedtime. 30 Tablet 2 02/29/2024 Active Buprenorphine 5 MCG/HR Transdermal Patch Weekly (Butrans)Indication s:Controlled substance agreement signed,Chronic bilateral low back pain with sciatica, sciatica laterality unspecified,Chronic pain syndrome Place 1 Patch topically on the skin once a week. 4 Patch 03/10/2024 Active Albuterol Sulfate HFA 108 (90 Base) MCG/ACT Inhalation Aerosol Solution Inhale 2 Puffs by mouth every 6 hours as needed for Shortness of Breath. 18 g 5 03/19/2024 Active documented as of this encounter (statuses as of 03/26/2024) Active Problems Problem Noted Date Diagnosed Date [...] as of this encounter (statuses as of 03/26/2024) Resolved Problems Problem Noted Date Diagnosed Date [...] 08/29/2013 09/15/2014 Malaise and fatigue 11/07/2012 09/16/19 Type 2 diabetes, HbA1c goal < 7% [...] Obesity Taxonomy Coronary atherosclerosis of [place] coronary artery 09/15/2008 10/03/2008 Malaise and fatigue [...] as of this encounter (statuses as of 03/26/2024) Immunizations Name Administration Dates Next Due COVID-19 mRNA, LNP-s, No Pre serve, 2-Dose Series ([place]) 11/08/2020,10/11/2020 HEP A - Hepatitis A (Adult > 18 yrs) 04/11/2011, 09/20/2010 Hepatitis B, 20+ yrs 07/05/2015 Pneumococcal Conjugate Vacci ne, 20-valent ([id number]) 03/13/2023 Pneumococcal Polysaccharide PPV23 (Pneumovax) 02/19/2018,03/09/2007 Seasonal [...] Sign Reading Time Taken Comments Blood Pressure 109/68 03/25/2024 11:40 AM EDT Pulse 81 03/25/2024 11:40 AM EDT Temperature 36.3 C (97.3 F) 03/25/2024 11:40 AM E DT Respiratory Rate 14 03/25/2024 11:40 AM EDT Oxygen Saturation 94% 03/25/2024 11:40 AM EDT Inhaled Oxygen Concentration - - Weight 105.2 kg (232 lb) 03/25/2024 10:47 AM EDT Height 162.6 cm (5' 4.02") 03/25/2024 10:47 AM E DT Body Mass Index 39.8 03/25/2024 10:47 AM EDT documented in this encounter Functional [...] of this encounter H&P Notes * Aj Pruett, - 03/25/2024 10:49 AM EDT Endoscopy Pre-Procedure Assessment Name: Carmen Tyson Date: 03/25/2024 Time: 10:49 AM Procedure(s): Upper GI Endoscopy; with Indication(s) of evaluation and workup of portal hypertension (including varices) and gastric polyps Endoscopy Pre-Procedure Assessment: Prior to the procedure, [...] Admission medications Medication Sig Last Dose Discont. Buprenorphine 5 MCG/HR Transdermal Patch Weekly (Butrans) Place 1 Patch topically on the skin once a week. Past Week Eszopiclone 2 MG Oral Tablet (Lunesta) Take 1 Tablet by mouth at bedtime. 03/24/2024 Furosemide 40 MG Oral Tablet (Lasix) Take 1 Tablet by mouth every other day. 03/24/2024 Baclofen 10 MG Oral Tablet (Lioresal) Take 1 Tablet by mouth in the morning and 1 Tablet at noon and 1 Tablet before bedtime. 03/24/2024 Escitalopram Oxalate 20 MG Oral Tablet (Lexapro) Take 1 Tablet by mouth in the morning. 03/25/2024 traZODone HCl 100 MG Oral Tablet (Desyrel) Take 1-2 Tablets by mouth at bedtime. 03/24/2024 hydrOXYzine HCl 25 MG Oral Tablet TAKE 1 TABLET BY MOUTH DURING DAY EVERY 4-6 HOURS NEEDED FOR ANXIETY & 2 TABLETS AT BEDTIME NEEDED FOR ANXIETY 03/25/2024 metFORMIN HCl 1000 MG Oral Tablet (Glucophage) Take 1 Tablet by mouth daily with breakfast. 03/24/2024 Pregabalin 100 MG Oral Capsule (Lyrica) Take 1 Capsule by mouth in the morning and 1 Capsule at noon and 1 Capsule before bedtime. 03/24/2024 Atenolol 25 MG Oral Tablet (Tenormin) Take 1 Tablet by mouth in the morning and 1 Tablet before bedtime. 03/25/2024 Atorvastatin Calcium 40 MG Oral Tablet (Lipitor) Take 1 Tablet by mouth at bedtime. 03/24/2024 Magnesium Oxide -Mg Supplement 400 (240 Mg) MG Oral Tablet (Mag-Ox) Take 1 Tablet by mouth in the morning. 03/24/2024 Pantoprazole Sodium 40 MG Oral Tablet Delayed Release (Protonix) Take 1 Tablet by mouth in the morning. 03/24/2024 Potassium Chloride Laura ER 20 MEQ Oral Tablet Extended Release Take 1 Tablet by mouth in the morning. 03/24/2024 Ondansetron 8 MG Oral Tablet Disintegrating (Zofran) PLACE 1 TABLET ON TONGUE AND DISSOLVE EVERY 8 HOURS NEEDED FOR NAUSEA Past Week NovoLIN R ReliOn 100 UNIT/ML Injection Solution (insulin REGULAR human) INJECT UP TO 200 UNITS SUBCUTANEOSULY ONCE DAILY VIA PUMP 03/25/2024 Loratadine 10 MG Oral Tablet (Claritin) TAKE 1 TABLET BY MOUTH IN THE MORNING FOR ALLERGIES. Patient taking differently: Take 1 Tablet by mouth in the morning. For allergies.. 03/22/2024 CPAP every night at bedtime. 03/24/2024 insulin glargine (LANTUS SOLOSTAR) 100 UNIT/ML SOPN 50 units daily in case of pump malfunction 03/24/2024 Albuterol Sulfate HFA 108 (90 Base) MCG/ACT Inhalation Aerosol Solution Inhale 2 Puffs by mouth every 6 hours as needed for Shortness of Breath. Over 30 Days Empagliflozin 10 MG Oral Tablet (Jardiance) Take 1 Tablet by mouth in the morning. Patient not taking: Reported on 03/22/2024 Not Taking Metoclopramide HCl 5 MG Oral Tablet (Reglan) Take 1 Tablet by mouth in the morning and 1 Tablet at noon and 1 Tablet in the evening. Take before meals. If needed for nausea. Over 30 Days Meclizine HCl 25 MG Oral Tablet (Antivert) Take 1 Tablet by mouth 3 times a day as needed for Dizziness. Over 30 Days Naloxone HCl 4 MG/0.1ML Nasal Liquid (Narcan Nasal) Administer 1 spray into 1 nostril for suspectedopioid overdose. Seek immediate medical attention. [email or web address]://www.S[employer]che[employer].com/watch?v=[email or web address] Dicyclomine HCl 20 MG Oral Tablet (Bentyl) Take 1 Tablet by mouth 2 times a day as needed for Pain or Cramping. Over 30 Days Glucagon Emergency 1 MG Injection Kit As directed Insulin Infusion Pump (MINIMED 630G INSULIN PUMP) KIT Use as directed. Glucose Blood (SYLVIA CONTOUR NEXT TEST) STRP Use to test blood sugar up to 6 times per day. E11.9 These are the ONLY test strips patient can use with insulin pump B-D Ultrafine III, 5MM, Pen MISC Use as directed. ONETOUCH ULTRASOFT LANCETS MISC check FS 6 times daily Review of patient's allergies indicates: Allergen Reactions Aleve [Naproxen Sodium] Bleeding Food (See Comments) Anaphylaxis Hot peppers (oils) Kiwi Extract Anaphylaxis Environmental [Pollen] Seasonal BP 115/65 | Pulse 81 | Temp 36.7 C (98 F) (Tympanic) | Resp 18 | Ht 1.626 m (5' 4.02") | Wt 105.2 kg (232 lb) | SpO2 97% | BMI 39.80 kg/m | BSA 2.18 m Physical Exam: Mental Status Examination: alert and oriented. Airway Examination: normal oropharyngeal airway and neck mobility. Respiratory Examination: clear to auscultation. CV Examination: regular rate and rhythm and systolic murmur. ASA Grade: III - A patient with severe systemic disease. Abdomen: negative This patient has undergone a preprocedural evaluation. A determination has been made to proceed with the planned procedure under [facility] procedural guidelines and the [facility] Non-Emergent, Elective Medical Services and Treatment Recommendations [...] the risks and benefits of upper endoscopy and possible EMR to include bleeding, infection, perforation, discomfort, aspiration and need for follow-up studies. Aj Pruett DO 03/25/2024 documented in this encounter Procedure Notes * Scott Weldon MD - 03/25/2024 10:51 AM EDTAssociated Order(s): UPPER GI ENDOSCOPY [facility] Patient Name: Carmen Tyson Procedure Date: 03/25/2024 10:51 AM Date of : 1970 Admit Type: Outpatient Note Status: Finalized Date of : 1970 Admit Type: Outpatient Age: 53 Room: [facility] Gender: Female Note Status: Finalized Procedure: Upper GI endoscopy Indications: Follow-up of gastric tumor of uncertain behavior, Follow-up of esophageal varices Providers: Aj Pruett DO (Doctor) Referring MD: Scott Weldon MD (Referring MD), [place] Waite (Referring MD) Medicines: General Anesthesia Complications: No immediate complications. Estimated blood loss: [...] by the physician, the nurse and the financial supervisor. The procedure was verified in the procedure [...] and oxygen saturations were monitored continuously. The upper GI endoscopy was accomplished without difficulty. The patient tolerated the procedure well. The [id number]-[id number] Endoscope ([id number]) was introduced through the mouth, and advanced to the third part of duodenum. Findings & Specimens: Three columns of grade II varices with no bleeding and no stigmata of recent bleeding were found inthe lower third of the esophagus, 35 to 40 cm from the incisors. They were 4 mm in largest diameter. Nored sukhjinder signs were present. Mild portal hypertensive gastropathy was found in the entire examined stomach. An endoclip was found in the gastric body. Multiple 5 to 6 mm semi-sessile polyps with no bleeding and no stigmata of recent bleeding were found in the gastric body. Three of the larger polyps were removed with a cold snare. Resection and retrieval were complete using a suction (via the working channel). The pathology specimen was placed into Bottle Number 1. Estimated blood loss was minimal. The examined duodenum was normal. Impression: - Grade II esophageal varices with no bleeding and no stigmata of recent bleeding. - Portal hypertensive gastropathy. - Several endoclips were found in the stomach from prior endoscopic mucosal resection. - Multiple gastric polyps. Three polyps were Resected and retrieved. - Normal examined duodenum. Recommendation: - The patient will be observed post-procedure, until all discharge criteria are met. - Advance diet as tolerated today. - Await pathology results. - Repeat upper endoscopy in 1 year for surveillance of varices. Aj Pruett DO 03/25/2024 11:27:12 AM This report has been signed electronically. documented in this encounter Nursing Notes * Elmira Randle RN - 03/25/2024 11:58 AM EDT Patient is alert, pain free and tolerating po fluids prior to discharge. Patient has been visited by Dr. Aj Pruett. Patient has received and demonstrates understanding of discharge instructions. Patient Escorted to private auto accompanied by staff. * Elmira Randle RN - 03/25/2024 11:23 AM EDT Patient transferred to post endo s/p EGD. Patient remains drowsy, but arousable - exhibits no signs of pain. Respirations are even and unlabored on room air. NSR in the 70s on the monitor. Abdomen soft and non distended. Vital signs stable. * Sly Funes RN - 03/25/2024 11:22 AM EDT Specimen(s) and location(s) verified with physician post procedure 11:22 AM Sly Funes RN See anesthesia record for medication administered during procedure. Sly Funes RN Pre cleaning of scope at the bedside started by scrub technician. * Ariana York RN - 03/25/2024 10:52 AM EDT The following pt discharge instructions reviewed with pt prior to prodedure: No driving today. No alcohol today. No signing of legal documents. Rest as much as possible today and can return to normal activities tomorrow. No operating any heavy equipment today. Diet as tolerated. Pt verbalized understanding. documented in this encounter Plan of Treatment Upcoming Encounters Date Type Department Care Team (Late st Contact Info) Description 04/14/2024 10:00 AM EST Telemedicine Psychiatry [facility], [place] [address] [place] [address] Nhi Fritz CRNP [address] [place] [address] 04/15/2024 11:00 AM EST Nurse Only Hematology/Oncology Treatment, [place] [address] [place] [phone] Nora, Chair 3 Hem Onc [address] [address] 04/21/2024 1:00 PM EST Office Visit Pharmacy, [address] [address] [facility] [address] [place] [address] 04/28/2024 11:00 AM EST Telemedicine Pharmacy, [facility] [address] [place] [address] [place] [address] 05/12/2024 8:00 AM EST Imaging [facility] 2nd Floor Cardiology, [address] [place] [phone] 06/03/2024 1:40 PM EST Office Visit Nephrology, [address], [place] [address] Jonathan Mathew MD [address] [facility] [place], [place] [address] 06/30/2024 8:00 AM EST Office Visit [facility] [address] [facility] [place] [address] Scott Weldon MD [address] [place] [address] 06/30/2024 1:20 PM EST Office Visit Hepatology, [facility] [address] [place] [address] Jazzy Chu DO [address] [place] [address] 07/08/2024 10:30 AM EST Telemedicine Gastroenterology, [facility] [address] [place] [address] Adam Bradshaw CRNP [address] [place] [address] 09/14/2024 1:45 PM EDT Office Visit Hematology/Oncology [facility] [address] [facility] [place], [place] [phone] Sunil Bourgeois MD [address] [facility] [place], [place] [address] 12/14/2024 12:20 PM EDT Office Visit [facility] [address] [place] [address] Scott Weldon MD [address] [place] [address] Pending Results Name Type Priority Associated Diagnoses Date /Time SURGICAL PATHOLOGY Pathology Routine Portal hypertensive gastropathy (HCC) Multiple gastric polyps 03/25/2024 11:22 AM EDT Scheduled Orders Name Type Priority Associated Diagnoses Orde r Schedule GLUCOSE METER, POINT OF CARE (COMMUNICATION ORDER) Point of Care Testing Routine Perform Now for 1 Occurrences starting 03/25/2024 until 03/25/2024 SURGICAL PATHOLOGY Pathology Routine Portal hypertensive gastropathy (HCC) Multiple gastric polyps Release Upon Ordering for 1 Occurrences starting 03/25/2024, 1 completed Scheduled Procedures Name Priority Associated Diagnoses Date/Ti me COLONOSCOPY FLEXIBLE PROXIMA L DIAGNOSTIC Recall History [...] 07/23/2028 07/23/2023, 1009/2021, 12/12/2019, Additional history exists DTap/Tdap Vaccines (3 [...] this encounter Medical Devices Implanted Type Area Reduction Plant Supervisor Device Identifier Shelf Expiration Date Model / Serial / Lot Neurostimul Intellis Adaptiv - [id number] - [id number] Implanted:Qty: 1 on 08/22/2022 by Rafia Small MD at OR [facility] N/A: Spine Lumbar [employer] 06/21/2023 [id number] / [id number] / Description:battery Medtronic Lead Kit 60 Cm Implanted:Qty: 1 on 08/22/2022 by Rafia Small MD at OR [facility] N/A: Spine Lumbar 02/01/2026 [id number] / / [id number] Medtronic Lead Kit 60cm Implanted:Qty: 1 on 08/22/2022 by Rafia Small MD at OR [facility] N/A: Spine Lumbar 03/21/2026 [id number] / / [id number] Envelope Tyrx Med Antibacteril - [id number] Implanted:Qty: 1 on 08/22/2022 by Rafia Small MD at OR [facility] N/A: Spine Lumbar [employer] 03/10/2023 [id number] / / [id number] Hemostatic Clip Res 235cm - [id number] Implanted:Qty: 4 on 10/05/2023 by Aj Pruett DO at ENDOSCOPY [facility] [employer] : ENDOSCOPY 02/03/2026 [id number] / / Hemostatic Clip Res 235cm - [id number] Implanted:Qty: 1 on 10/05/2023 by Aj Pruett DO at ENDOSCOPY [facility] [employer] : ENDOSCOPY 02/02/2026 [id number] / / documented as of this encounter Procedures Procedure Name Priority Date/Time Associated Diagnosis Comments GLUCOSE METER, POINT OF CARE CRISTELA 03/25/2024 10:55 AM EDT UPPER GI ENDOSCOPY 03/25/2024 10 :51 AM EDT documented in this encounter Results * GLUCOSE METER, POINT OF CARE (03/25/2024 10:55 AM EDT) [facility] GLUCOSE - POCT 112 70 - 120 mg/dL 03/25/2024 10:58 AM EDT LABORATORY [place] 57-00 Blood Whole blood specimen / Unknown 03/25/2024 10:55 AM EDT 03/25/2024 10:58 AM EDT Aj Pruett DO LAB POINT OF CARE TE ST DOCKED DEVICE UNSOLICITED RESULTS LABORATORY [place] 57-[address] [place], [place] [address] [id number] * UPPER GI ENDOSCOPY (03/25/2024 10:51 AM EDT) 03/25/2024 10:5 1 AM EDT Narrative Procedure Note Scott Weldon MD - 03/25/2024 10:51 AM EDT [facility] Patient Name: Carmen Tyson Procedure Date: 03/25/2024 10:51 AM Date of : 1970 Admit Type: Outpatient Note Status:Finalized Date of : 1970 Admit Type: Outpatient Age: 53 Room: [facility] Gender: Female Note Status: Finalized Procedure: Upper GI endoscopy Indications: Follow-up of gastric tumor of uncertain behavior,Follow-up of esophageal varices Providers: Aj Pruett DO (Doctor) Referring MD: Scott Weldon MD (Referring MD), [place] Waite (Referring MD) Medicines: General Anesthesia Complications: No immediate complications. Estimated blood loss:Minimal. [...] by the physician, the nurse and the financial supervisor.The procedure was verified in the procedure room. [...] and oxygen saturations were monitored continuously. The upper GI endoscopywas accomplished without difficulty. The patient tolerated the procedurewell. The GIF-HQ190 Endoscope ([id number]) was introduced through the mouth, andadvanced to the third part of duodenum. Findings & Specimens: Three columns of grade II varices with no bleeding and no stigmata ofrecent bleeding were found in the lower third of the esophagus, 35 to 40 cm from the incisors. Theywere 4 mm in largest diameter. No red sukhjinder signs were present. Mild portal hypertensive gastropathy was found in the entire examinedstomach. An endoclip was found in the gastric body. Multiple 5 to 6 mm semi-sessile polyps with no bleeding and nostigmata of recent bleeding were found in the gastric body. Three of the larger polyps were removed with acold snare. Resection and retrieval were complete using a suction (via the working channel). Thepathology specimen was placed into Bottle Number 1. Estimated blood loss was minimal. The examined duodenum was normal. Impression: - Grade II esophageal varices with no bleeding andno stigmata of recent bleeding. - Portal hypertensive gastropathy. - Several endoclips were found in the stomach fromprior endoscopic mucosal resection. - Multiple gastric polyps. Three polyps wereResected and retrieved. - Normal examined duodenum. Recommendation: - The patient will be observed post-procedure,until all discharge criteria are met. - Advance diet as tolerated today. - Await pathology results. - Repeat upper endoscopy in 1 year for surveillanceof varices. Aj Pruett DO 03/25/2024 11:27:12 AM This report has been signed electronically. Scott Weldon MD GASTRO UPPER documented in this encounter Visit Diagnoses Diagnosis Portal hypertensive gastropathy (HCC) Other specified disorder of stomach and duodenum Multiple gastric polyps Benign neoplasm of stomach documented in this encounter Administered Medications Inactive Administered Medications - up to 3 most recent administrations Medication Order MAR Action Action Date Dose Rate Site isolyte-S pH 7.4 infusion Intravenous, at 100 mL/hr, Plasma-LYTE 148, isolyte-S, and isolyte-S pH 7.4 are considered equivalent - including for MAR barcode scanning., CONTINUOUS, Starting on Thu03/25/24 at 1115, Until Thu03/25/24 at 1600, Pre-Op Continue from Pre-Op 03/25/2024 11:06 AM EDT 100 mL/hr New Bag 03/25/2024 10:56 AM EDT 100 mL/hr documented in this encounter Active and Recently Administered Medications Times are shown in EDT. Continuous Medication Order 03/23/2024 03/24/2024 03/25/2024 isolyte-S pH 7.4 infusion Intravenous, at 100 mL/hr, Plasma-LYTE 148, isolyte-S, and isolyte-S pH 7.4 are considered equivalent - including for MAR barcode scanning., CONTINUOUS, Starting on Thu03/25/24 at 1115, Until Thu03/25/24 at 1600, Pre-Op 1056 (New Bag - Prov ider: Ariana York RN)1106 (Continue from Pre-Op - Provider: Aurelia Longo CRNA)1121 (Anes Intra-Op Fluid - Provider: Aurelia Longo CRNA) documented in this encounter Advance Directives * [...] Power of Attor narda? No Care Teams [employer] Sales Relationship Specialty Start Date End Date Scott Weldon MD 132 [facility] [place] [address] PCP - General Family Medicine 08/03/18 documented as of this encounter
--- OUTSIDE RECORDS SUMMARY | 2024-05-13 05:11 | External Medical Summary | Summary of Care ---
Author Name Unknown Organization [facility] Address [address] [facility] [place] [address] Phone [phone] Care Team Providers Care Computer Hardware Developer Name Role Phone Scott Weldon MD Primary Care Provider + Reason for Visit * Reason Comments eRx-Medication Refill Encounter Details Date Type Department Care Team (Late st Contact Info) Description 04/05/2024 Refill Family Practice [facility] 132 [facility] [place] [address] Scott Weldon MD 132 [place] [address] Controlled substance agreement signed; Chronic bilateral low back pain with sciatica, sciatica laterality unspecified; Chronic pain syndrome Allergies Active Allergy Reactions Criticality Noted Date Comments Naproxen Sodium Bleeding High 11/29/2013 Pollen 12/03/2022 Seasonal Food (See Comments) Anaphylaxis High 04/20/2019 Hot peppers (oils) Kiwi Extract Anaphylaxis High 04/20/2019 documented as of this encounter (statuses as of 04/06/2024) Medications Medication Sig Dispensed Refills Start Date [...] Strip 5 02/17/2017 Active Insulin Infusion Pump (MINIMTamatem Inc. 630G INSULIN PUMP) KITIndications:Type 2 diabetes [...] suspected opioid overdose. Seek immediate medical attention. [email or web address]?v=[email or web address] [email or web address] 1 Each 3 11/27/2022 Active [...] at bedtime. 30 Tablet 2 02/29/2024 Active Albuterol Sulfate HFA 108 (90 Base) MCG/ACT Inhalation Aerosol Solution Inhale 2 Puffs by mouth every 6 hours as needed for Shortness of Breath. 18 g 5 03/19/2024 Active Buprenorphine 5 MCG/HR Transdermal Patch Weekly (Butrans)Indication s:Controlled substance agreement signed,Chronic bilateral low back pain with sciatica, sciatica laterality unspecified,Chronic pain syndrome Place 1 Patch topically on the skin once a week. 4 Patch 04/05/2024 Active documented as of this encounter (statuses as of 04/06/2024) Active Problems Problem Noted Date Diagnosed Date [...] as of this encounter (statuses as of 04/06/2024) Resolved Problems Problem Noted Date Diagnosed Date [...] as of this encounter (statuses as of 04/06/2024) Immunizations Name Administration Dates Next Due COVID-19 mRNA, LNP-s, No Pre serve, 2-Dose Series (Nixon) 11/08/2020,10/11/2020 HEP A - Hepatitis A (Adult > 18 yrs) 04/11/2011, 09/20/2010 Hepatitis B, 20+ yrs 07/05/2015 Pneumococcal Conjugate Vacci ne, 20-valent ([id number]) 03/13/2023 Pneumococcal Polysaccharide PPV23 (Pneumovax) 02/19/2018,03/09/2007 Seasonal [...] encounter Miscellaneous Notes * Telephone Encounter - Ignacia Raygoza, [facility] - 04/06/2024 4:07 PM EDTRefused Prescriptions: Disp Refills Buprenorphine 5 MCG/HR Transdermal Patch W*4 Patch0 Sig: PLACE 1 PATCH TOPICALLY ON THE SKIN ONCE A WEEK.Refused By: IGNACIA RAYGOZAason for Refusal: Duplicate Request documented in this encounter Plan of Treatment Upcoming Encounters Date Type Department Care Team (Late st Contact Info) Description 04/14/2024 10:00 AM EST [facility]medicine [facility] [address] [place] [address] Nhi Fritz CRNP [address] [place] [address] 04/15/2024 11:00 AM EST Nurse Only Hematology/Oncology Treatment, [address] [phone] Nora, Chair 3 Hem Onc [address] [address] 04/21/2024 1:00 PM EST Office Visit Pharmacy, [address] [address] 04/28/2024 11:00 AM EST Telemedicine Pharmacy, [facility] [address] [facility] [address] 05/12/2024 8:00 AM EST Imaging [facility] 2nd Floor Cardiology, [place] 132 [place] [address] 06/03/2024 1:40 PM EST Office Visit Nephrology, [facility] [address] [place], [place] [address] Jonathan Mathew MD [address] [place], [place] [address] 06/30/2024 8:00 AM EST Office Visit [facility] [address] [place] [address] Scott Weldon MD [address] [place] [place] [address] 06/30/2024 1:20 PM EST Office Visit Hepatology, [facility] [address] [facility] [place] [address] Jazzy Chu DO [address] [place] [address] 07/08/2024 10:30 AM EST Telemedicine Gastroenterology, [facility] [address] [facility] [place] [address] Adam Bradshaw CRNP [address] [place] [address] 09/14/2024 1:45 PM EDT Office Visit Hematology/Oncology [facility] [address] [place], [place] [phone] Sunil Bourgeois MD [address] [place], [place] [address] 12/14/2024 12:20 PM EDT Office Visit [facility] [address] [facility] [place] [address] Scott Weldon MD [address] [place] [address] Scheduled Procedures Name Priority Associated Diagnoses Date/Ti [...] this encounter Medical Devices Implanted Type Area Head Men'S Golf Coach Device Identifier Shelf Expiration Date Model / Serial / Lot Neurostimul Intellis Adaptiv - [id number] - [id number] Implanted:Qty: 1 on 08/22/2022 by Rafia Small MD at OR [facility] N/A: Spine Lumbar [employer] 06/21/2023 [id number] / [id number] / Description:battery Medtronic Lead Kit 60 Cm Implanted:Qty: 1 on 08/22/2022 by Rafia Small MD at OR [facility] N/A: Spine Lumbar 02/01/2026 [id number] / / [id number] Medtronic Lead Kit 60cm Implanted:Qty: 1 on 08/22/2022 by Rafia Small MD at OR [facility] N/A: Spine Lumbar 03/21/2026 [id number] / / [id number] Envelope Tyrx Med Antibacteril - [id number] Implanted:Qty: 1 on 08/22/2022 by Rafia Small MD at OR [facility] N/A: Spine Lumbar [employer] 03/10/2023 [id number] / / [id number] Hemostatic Clip Res 235cm - [id number] Implanted:Qty: 4 on 10/05/2023 by Aj Pruett, DO at ENDOSCOPY [facility] : ENDOSCOPY 02/03/2026 [id number] / / Hemostatic Clip Res 235cm - [id number] Implanted:Qty: 1 on 10/05/2023 by Aj Pruett, DO at ENDOSCOPY [facility] : ENDOSCOPY 02/02/2026 [id number] / / documented as of this encounter [...] Power of Attor narda? No Care Teams Computer Hardware Developer Relationship Specialty Start Date End Date Scott Weldon MD 132 [facility] [place] [address] PCP - General Family Medicine 08/03/18 documented as of this encounter
--- OUTSIDE RECORDS SUMMARY | 2024-05-13 05:11 | External Medical Summary | Summary of Care ---
Author Name Unknown Organization [facility] Address [address] [facility] [place] [address] Phone [phone] Care Team Providers Care Blueprinting And Photocopy Supervisor Name Role Phone Scott Weldon MD Primary Care Provider + Reason for Visit * Reason Comments NEW PATIENT Diabetic Exam * Evaluate & Treat - Unlimited Visits (Within 30 days (routine)) - Authorized Specialty Diagnoses / Procedures Referred By Dory payan Referred To Contact Ophthalmology Diagnoses Type 2 diabetes mellitus with hemoglobin A1c goal of less than 8.0% (HCC) Scott Weldon MD [address] [place] [address] Referral ID Status Reason Start Date Expiration Date Visits Requested Visits Authorized [id number] Authorized Specialty Services Required 08/17/[phone] Encounter Details Date Type Department Care Team (Late st Contact Info) Description 03/24/2024 12:30 PM EDT Office Visit Ophthalmology, [facility] [address] [place] [address] Rolan Self DO 21 [facility] [address] [place] [address] Type 2 diabetes mellitus with hemoglobin A1c goal of less than 7.0% (HCC)*; Diabetic eye exam (HCC); Dry eyes, bilateral; Combined forms of age-related cataract of both eyes; Mild nonproliferative diabetic retinopathy of both eyes without macular edema associated with type 2 diabetes mellitus (HCC); Open angle with borderline findings and low glaucoma risk in both eyes Allergies Active Allergy Reactions Criticality Noted Date Comments Naproxen Sodium Bleeding High 11/29/2013 Pollen 12/03/2022 Seasonal Food (See Comments) Anaphylaxis High 04/20/2019 Hot peppers (oils) Kiwi Extract Anaphylaxis High 04/20/2019 documented as of this encounter (statuses as of 03/24/2024) Medications Medication Sig Dispensed Refills Start Date [...] Strip 5 02/17/2017 Active Insulin Infusion Pump (MINIMWarranty Life 630G INSULIN PUMP) KITIndications:Type 2 diabetes mellitus with hemoglobin A1c goal of less than 8.0% ([facility]) Use as directed. 07/30/2017 Active CPAP every [...] suspected opioid overdose. Seek immediate medical attention. [email or web address] 1 Each 3 11/27/2022 Active [...] hemoglobin A1c goal of less than 8.0% ([facility]),DM type 2, not at goal ([facility]) INJECT UP TO 200 UNITS SUBCUTANEOSULY ONCE [...] varices without bleeding, unspecified esophageal varices type ([facility]),Colitis Take 1 Tablet by mouth in the [...] as of this encounter (statuses as of 03/24/2024) Active Problems Problem Noted Date Diagnosed Date [...] as of this encounter (statuses as of 03/24/2024) Resolved Problems Problem Noted Date Diagnosed Date [...] as of this encounter (statuses as of 03/24/2024) Immunizations Name Administration Dates Next Due COVID-19 mRNA, LNP-s, No Pre serve, 2-Dose Series (Pfizer) 11/08/2020,10/11/2020 HEP A - Hepatitis A (Adult > 18 yrs) 04/11/2011, 09/20/2010 Hepatitis B, 20+ yrs 07/05/2015 Pneumococcal Conjugate Vacci ne, 20-valent (Vcojomu24) 03/13/2023 Pneumococcal Polysaccharide PPV23 (Pneumovax) 02/19/2018,03/09/2007 Seasonal [...] as of this encounter Progress Notes * Rolan Self, DO - 03/24/2024 12:30 PM EDT 03/24/2024 [facility] [address] [facility] Ophthalmology Clinic Note HPI: Carmen Tyson is a 53 year old pt who presents to the eye clinic today as a new patient to me for evaluation. Location: OU Severity: Mild Quality: May need new glasses Exacerbating/Remitting Factors: Denies Associated Sx: Denies Past Ocular History: POAG OU Pigment dispersion syndrome T2DM w/o hx of retinopathy Cataract OU Eye Medications:Denies Family Ocular History: Father - glaucoma ROS: Pt denies acute vision changes Pt denies new onset double vision Pt denies new [place] Pt denies new issues surrounding eyes Pt admits to above Please see below for full exam details. Base Eye Exam Visual Acuity (Snellen - Linear) Right Left Dist cc 20/50 20/40 -1 Dist ph cc 20/40 20/25 Correction: Glasses Tonometry (Tonopen, 12:45 PM) Right Left Pressure 19 20 Pupils Pupils Shape React APD Right PERRL Round Slow None Left PERRL Round Slow None Visual Roman (Counting fingers) Right Left Full Restrictions Partial outer inferior nasal deficiency Extraocular Movement Right Left Full, Ortho Full, Ortho Neuro/Psych Oriented x3: Yes Mood/Affect: Normal Dilation Both eyes: 0.5% Proparacaine @ 12:44 PM Dilation #2 Both eyes: 1.0% Mydriacyl @ 12:49 PM Additional Tests Keratometry K1 [place] K2 [place] Right 45.00 172 46.25 082 Left 44.50 180 44.50 090 Slit Lamp and Fundus Exam External Exam Right Left External Normal Normal Slit Lamp Exam Right Left Lids/Lashes Ptosis Ptosis Conjunctiva/Sclera White and quiet White and quiet Cornea Clear Clear Anterior Chamber Deep and quiet Deep and quiet Iris Round and reactive Round and reactive Lens 1.5+ NSC, vacuoles, pinpoint PSC 1.5+ NSC, vacuoles Fundus Exam Right Left Vitreous Normal Normal Disc Normal Normal C/D Ratio 0.4 0.5 Macula MA's MA's Vessels Normal Normal Periphery Normal Normal Refraction Wearing Rx Sphere Cylinder [place] Add Right -3.50 +0.25 159 +2.00 Left -2.75 +0.50 012 +2.00 Age: 4yrs Type: Bifocal Manifest Refraction (Auto) Sphere Cylinder [place] Right -2.75 Left -2.25 +0.50 178 A/P: Diabetic Eye Exam Mild NPDR OU -Mild diabetic findings OU -Cont blood glucose control and HTN control -RTC in 1 year for routine f/u Last performed 03/2024 Due next 03/2025 Dry Eyes, OU -Recommend artificial tears up to 4 times daily -Brand names given - Refresh Cataract, OU -If unable to improve vision with glasses, consider cataract surgery Refractive error -Follow with optometry Glaucoma suspect, OU -No obvious signs of glaucoma currently, monitor *Carmen levy f/u with optometry for all needs at this time RTC 1 year - optometry or sooner prn. Rolan Self DO 03/24/24 I spent a total of 20-29 minutes (exact time 20 mins) on the date of service in preparation, delivery, and documentation of the care provided to Carmen Tyson excluding any time spent in the performance of separately billed services or time spent by another provider/QHP. documented in this encounter Nursing Notes * Jill Travis TECH - 03/24/2024 12:47 PM EDT Pt presents to clinic for new pt diabetic eye exam. States she been seen previously at [facility] (Dr. Lopez). DM for 14 years Last FBS: did not check this morning. Was 120 last evening (830 pm) Hemoglobin AIC Results: Lab Results Component Value Date/Time HEMOGLOBIN A1C - [facility] 6.3 (H) 11/13/2023 10:07 AM HEMOGLOBIN A1C - [facility] 5.8 (H) 07/23/2023 12:00 PM HEMOGLOBIN A1C - [facility] 5.7 (H) 02/18/2023 01:26 PM HEMOGLOBIN A1C - [facility] 7.9 (H) 06/14/2020 09:00 AM HEMOGLOBIN A1C - [facility] 6.5 (H) 12/12/2019 09:47 AM HEMOGLOBIN A1C - [facility] 6.8 (H) 02/16/2019 09:09 AM documented in this encounter Plan of Treatment Upcoming Encounters Date Type Department Care Team (Latest Contact Info) Description 4 11:15 AM EDT Hospital Encounter ENDO [facility], Endoscopy Room [facility] [address] [place] [phone] Aj Pruett, [address] [place] [address] 4 11:15 AM EDT - 4 11:45 AM EDT Surgery ENDO [facility], Endoscopy Room [facility] [address] [place] [phone] Aj Pruett DO [address] [place] [address] ESOPHAGOGASTRODUODENOSCOPY (EGD), FLEXIBLE, TRANSORAL, DIAGNOSTIC 4 10:00 AM EST Telemedicine Psychiatry [place] [address] [place] [address] Nhi Fritz, NOEL [address] [place] [address] 4 11:00 AM EST Nurse Only Hematology/Onco logy Treatment, [place] [address] [place] [facility] [place] [phone] Nora, Chair 3 Hem Onc [facility] [address] [place] [address] 4 1:00 PM EST Office Visit Pharmacy, [place] [address] [place] [facility] [address] [place] [address] [place] [facility] [place] [address] 4 11:00 AM EST Telemedicine Pharmacy, [facility] [address] [facility] [place] [address] [facility] [place] [address] 4 8:00 AM EST Imaging [facility] 2nd Floor Cardiology, [place] [address] [facility] [place] [phone] 4 1:40 PM EST Office Visit Nephrology, [facility] [address] [place] [address] Jonathan Mathew MD 200 [facility] [place] [address] 5 8:00 AM EST Office Visit Family Practice [facility] [address] [place] [address] Scott Weldon MD [address] [place] [address] 5 1:20 PM EST Office Visit Hepatology, [facility] [address] [place] [address] Jazzy Chu DO [address] [place] [address] 5 10:30 AM EST Telemedicine Gastroenterolog y, [facility] [address] [place] [address] Adam Bradshaw CRNP [address] [place] [address] 5 1:45 PM EDT Office Visit Hematology/Onco logy [facility] [address] [facility] [place] [address] Sunil Bourgeois MD 200 [facility] [place] [address] 5 12:20 PM EDT Office Visit Family Practice [facility] [place] [address] Scott Weldon MD 132 [facility] [place] [address] Scheduled Procedures Name Priority Associated Diagnoses Date/Ti [...] this encounter Medical Devices Implanted Type Area Neuropsychiatrist Device Identifier Shelf Expiration Date Model / Serial / Lot Neurostimul Intellis Adaptiv - [id number] - [id number] Implanted:Qty: 1 on 08/22/2022 by Rafia Small MD at OR [facility] N/A: Spine Lumbar [employer] 06/21/2023 [id number] / [id number] / Description:battery Medtronic Lead Kit 60 Cm Implanted:Qty: 1 on 08/22/2022 by Rafia Small MD at OR [facility] N/A: Spine Lumbar 02/01/2026 [id number] / / [id number] Medtronic Lead Kit 60cm Implanted:Qty: 1 on 08/22/2022 by Rafia Small MD at OR [facility] N/A: Spine Lumbar 03/21/2026 [id number] / / [id number] Envelope Tyrx Med Antibacteril - [id number] Implanted:Qty: 1 on 08/22/2022 by Rafia Small MD at OR [facility] N/A: Spine Lumbar [employer] 03/10/2023 [id number] / / [id number] Hemostatic Clip Res 235cm - [id number] Implanted:Qty: 4 on 10/05/2023 by Aj Pruett DO at ENDOSCOPY [facility] : END[facility]COPY 02/03/2026 [id number] / / Hemostatic Clip Res 235cm - [id number] Implanted:Qty: 1 on 10/05/2023 by Aj Pruett DO at ENDOSCOPY [facility] : END[facility]COPY 02/02/2026 [id number] / / documented as of this encounter Visit Diagnoses Diagnosis Type 2 diabetes mellitus with hemoglobin A1c goal of less than 7.0% ([facility])- Primary Diabetic eye exam (HCC) Type II or unspecified type diabetes mellitus without mention of complication, not stated as uncontrolled Dry eyes, bilateral Tear film insufficiency, unspecified Combined forms of age-related cataract of both eyes Other and combined forms of senile cataract Mild nonproliferative diabetic retinopathy of both eyes without macular edema associated with type 2 diabetes mellitus (HCC) Open angle with borderline findings and low glaucoma risk in both eyes Open angle with borderline findings, low risk Portal hypertensive gastropathy (HCC) Other specified disorder [...] Power of Attor narda? No Care Teams Blueprinting And Photocopy Supervisor Relationship Specialty Start Date End Date Scott Weldon MD [address] [place] [address] PCP - General Family Medicine 08/03/18 documented as of this encounter
--- OUTSIDE RECORDS SUMMARY | 2024-05-13 05:11 | External Medical Summary | Summary of Care ---
Author Name Unknown Organization [facility] Address [address] [place] [address] Phone [phone] Care Team Providers Care Income Tax Auditor Name Role Phone Scott Weldon MD Primary Care Provider + Reason for Visit * Reason Onset Date Comments Patient Assistance Program 03/29/2024 Encounter Details Date Type Department Care Team (Late st Contact Info) Description [facility] [address] [place] [phone] Danielle Anderson, [facility] [address] [place] [address] Patient Assistance Program Allergies Active Allergy Reactions Criticality Noted Date Comments Naproxen Sodium Bleeding High 11/29/2013 Pollen 12/03/2022 Seasonal Food (See Comments) Anaphylaxis High 04/20/2019 Hot peppers (oils) Kiwi Extract Anaphylaxis High 04/20/2019 documented as of this encounter (statuses as of 03/29/2024) Medications Medication Sig Dispensed Refills Start Date [...] Strip 5 02/17/2017 Active Insulin Infusion Pump (MINIMPreciouStatus 630G INSULIN PUMP) KITIndications:Type 2 diabetes mellitus with hemoglobin A1c goal of less than 8.0% ([facility]) Use as directed. 07/30/2017 Active CPAP [...] suspected opioid overdose. Seek immediate medical attention. [email or web address]://[email or web address] .[email or web address]/watch?v=v26cDa [email or web address] 1 Each 3 11/27/2022 Active [...] less than 8.0% ([facility]),DM type 2, not at goal ([facility]) INJECT UP TO 200 UNITS SUBCUTANEOSULY [...] as of this encounter (statuses as of 03/29/2024) Active Problems Problem Noted Date Diagnosed Date [...] 2 varices, gastropathy +gastric polyps & endoclips 09/29 colon + polyps PATH benign. Krishna [...] as of this encounter (statuses as of 03/29/2024) Resolved Problems Problem Noted Date Diagnosed Date [...] Overview: Per Obesity Taxonomy Coronary atherosclerosis of [place] coronary artery 09/15/2008 10/03/2008 Malaise and fatigue [...] as of this encounter (statuses as of 03/29/2024) Immunizations Name Administration Dates Next Due COVID-19 mRNA, LNP-s, No Pre serve, 2-Dose Series (Contests4Causes) 11/08/2020,10/11/2020 HEP A - Hepatitis A (Adult > 18 yrs) 04/11/2011, 09/20/2010 Hepatitis B, 20+ yrs 07/05/2015 Pneumococcal Conjugate Vacci ne, 20-valent (Elsykna51) 03/13/2023 Pneumococcal Polysaccharide PPV23 (Pneumovax) 02/19/2018,03/09/2007 Seasonal [...] Miscellaneous Notes * Telephone Encounter - Danielle Anderson, [facility] - 03/29/2024 11:48 AM EDT Patient is unable to afford their prescription and would like assistance in getting this medication. Please see the following for further information regarding this request: Medication: Novolin R vials already enrolled in [employer] P[employer], just needs to re-enroll for 2024 Clinic location: [facility] Reason pt cannot pick-up: n/a Initial therapy?: no Has pt been without med?: no Patient's contact #: [phone] Pt would like to explore their options for obtaining this medication. Please advise pt at the phonenumber listed above. Thank you. Thanks, Danielle Anderson, PharmD, BCACP Clinical Pharmacist Medication Therapy Disease Management 03/29/2024, 11:49 AM documented in this encounter Plan of Treatment Upcoming Encounters Date Type Department Care Team (Late st Contact Info) Description 04/14/2024 10:00 AM EST Telemedicine Psychiatry [place] [address] [place] [address] Nhi Fritz CRNP [address] [place] [address] 04/15/2024 11:00 AM EST Nurse Only Hematology/Oncology Treatment, [place] [address] [place] [address] Nora, Chair 3 Hem Onc [place] [address] [place] [address] 04/21/2024 1:00 PM EST Office Visit Pharmacy, [address] [address] 04/28/2024 11:00 AM EST Telemedicine Pharmacy, [address] [address] [address] [place] [address] 05/12/2024 8:00 AM EST Imaging [facility] 2nd Floor Cardiology, [place] 132 [facility] [place] [phone] 06/03/2024 1:40 PM EST Office Visit Nephrology, [facility] [address] [place] [address] Jonathan Mathew MD 200 [facility] [place] [address] 06/30/2024 8:00 AM EST Office Visit Family [facility] 132 [facility] [place] [address] Scott Weldon MD [facility] [address] 06/30/2024 1:20 PM EST Office Visit Hepatology, [facility] [address] Jazzy Chu DO [address] [facility] [address] 07/08/2024 10:30 AM EST Telemedicine Gastroenterology, [facility] 132 [facility] [place] [address] Adam Bradshaw CRNP [address] [place] [address] 09/14/2024 1:45 PM EDT Office Visit Hematology/Oncology [facility] [place] [address] [place] [phone] Sunil Bourgeois MD [address] [place] [address] 12/14/2024 12:20 PM EDT Office Visit Family [facility] 132 [place] [address] Scott Weldon MD [address] [place] [address] Scheduled Procedures Name Priority Associated Diagnoses Date/Ti [...] this encounter Medical Devices Implanted Type Area Outcomes Manager Device Identifier Shelf Expiration Date Model / Serial / Lot Neurostimul Intellis Adaptiv - [id number] - [id number] Implanted:Qty: 1 on 08/22/2022 by Rafia Small MD at OR [facility] N/A: Spine Lumbar [employer] 06/21/2023 [id number] / [id number] / Description:battery Medtronic Lead Kit 60 Cm Implanted:Qty: 1 on 08/22/2022 by Rafia Small MD at OR [facility] N/A: Spine Lumbar 02/01/2026 [id number] / / [id number] Medtronic Lead Kit 60cm Implanted:Qty: 1 on 08/22/2022 by Rafia Small MD at OR [facility] N/A: Spine Lumbar 03/21/2026 [id number] / / [id number] Envelope Tyrx Med Antibacteril - [id number] Implanted:Qty: 1 on 08/22/2022 by Rafia Small MD at OR [facility] N/A: Spine Lumbar [employer] 03/10/2023 [id number] / / [id number] Hemostatic Clip Res 235cm - [id number] Implanted:Qty: 4 on 10/05/2023 by Aj Pruett, DO at ENDOSCOPY [facility] : ENDOSCOPY 02/03/2026 [id number] / / Hemostatic Clip Res 235cm - [id number] Implanted:Qty: 1 on 10/05/2023 by Aj Pruett, DO at ENDOSCOPY [facility] : ENDOSCOPY 02/02/2026 [id number] / / documented as of this encounter Visit Diagnoses Diagnosis Type 2 diabetes mellitus with hemoglobin A1c goal of less than 8.0% (HCC)- Primary documented in this encounter Advance Directives * [...] Power of Attor narda? No Care Teams Income Tax Auditor Relationship Specialty Start Date End Date Scott Weldon MD [address] [address] PCP - General Family Medicine 08/03/18 documented as of this encounter
--- OUTSIDE RECORDS SUMMARY | 2024-05-13 05:11 | External Medical Summary | Summary of Care ---
Author Name Unknown Organization [facility] Address [address] [place] [address] Phone [phone] Care Team Providers Care Food Or Baggage Handling Rampman Name Role Phone Scott Weldon MD Primary Care Provider + Encounter Details Date Type Department Care Team (Late st Contact Info) Description 04/04/2024 Orders Only Outcomes Research Department [address] [place] [address] Jill Duarte CHRA MyCVuclip Research Other*[id number] Allergies Active Allergy Reactions Criticality Noted Date Comments Naproxen Sodium Bleeding High 11/29/2013 Pollen 12/03/2022 Seasonal Food (See Comments) Anaphylaxis High 04/20/2019 Hot peppers (oils) Kiwi Extract Anaphylaxis High 04/20/2019 documented as of this encounter (statuses as of 04/04/2024) Medications Medication Sig Dispensed Refills Start Date [...] Strip 5 02/17/2017 Active Insulin Infusion Pump (MINIMCranberry Chic 630G INSULIN PUMP) KITIndications:Type 2 diabetes mellitus with hemoglobin A1c goal of less than 8.0% ([facility]) Use as directed. 07/30/2017 Active [...] suspected opioid overdose. Seek immediate medical attention. [email or web address]://www.[email or web address] [email or web address] .com/watch?v=v26cDa [email or web address] 1 Each 3 11/27/2022 Active [...] as of this encounter (statuses as of 04/04/2024) Active Problems Problem Noted Date Diagnosed Date [...] as of this encounter (statuses as of 04/04/2024) Resolved Problems Problem Noted Date Diagnosed Date [...] Overview: Per Obesity Taxonomy Coronary atherosclerosis of [place] coronary artery 09/15/2008 10/03/2008 Malaise and [...] as of this encounter (statuses as of 04/04/2024) Immunizations Name Administration Dates Next Due COVID-19 mRNA, LNP-s, No Pre serve, 2-Dose Series (GCommerce) 11/08/2020,10/11/2020 HEP A - Hepatitis A (Adult > 18 yrs) 04/11/2011, 09/20/2010 Hepatitis B, 20+ yrs 07/05/2015 Pneumococcal Conjugate Vacci ne, 20-valent (Tzspfnr32) 03/13/2023 Pneumococcal Polysaccharide PPV23 (Pneumovax) 02/19/2018,03/09/2007 Seasonal [...] Description 04/14/2024 10:00 AM EST Telemedicine Psychiatry [place] [address] [place] [address] Nhi Fritz CRNP [address] [place] [address] 04/15/2024 11:00 AM EST Nurse Only Hematology/Oncology Treatment, [place] [address] [place] [phone] Nora, Chair 3 Hem Onc [facility] 200 [place] [address] 04/21/2024 1:00 PM EST Office Visit Pharmacy, [address] [place] [address] [address] 04/28/2024 11:00 AM EST Telemedicine Pharmacy, [facility] 132 [facility] [place] [address] [place] [address] 05/12/2024 8:00 AM EST Imaging [facility] 2nd Floor Cardiology, [place] [address] [place] [phone] 06/03/2024 1:40 PM EST Office Visit Nephrology, [facility] [address] [facility] [place] [address] Jonathan Mathew MD 200 [facility] [place] [address] 06/30/2024 8:00 AM EST Office Visit Family Practice [facility] [address] [place] [address] Scott Weldon MD [address] [place] [address] 06/30/2024 1:20 PM EST Office Visit Hepatology, [facility] [address] [place] [address] Jazzy Chu DO [address] [place] [address] 07/08/2024 10:30 AM EST Telemedicine Gastroenterology, [facility] [address] [place] [address] Adam Bradshaw CRNP [address] [place] [address] 09/14/2024 1:45 PM EDT Office Visit Hematology/Oncology [facility] [address] [facility] [place], [place] [phone] Sunil Bourgeois MD 200 [facility] [place] [address] 12/14/2024 12:20 PM EDT Office Visit Family Practice [facility] [place] [address] Scott Weldon MD 132 [facility] [place] [address] Scheduled Orders Name Type Priority Associated Diagnoses Orde r Schedule MYCODE SUBSEQUENT ADULT Lab Routine MyCode Research Other*[id number] Every 6 Months for 2 Occurrences starting 04/04/2024 until 04/24/2025 Scheduled Procedures Name Priority Associated Diagnoses Date/Ti [...] this encounter Medical Devices Implanted Type Area Hvac Operations Technician Device Identifier Shelf Expiration Date Model / Serial / Lot Neurostimul Intellis Adaptiv - [id number] - [id number] Implanted:Qty: 1 on 08/22/2022 by Rafia Small MD at OR [facility] N/A: Spine Lumbar [employer] 06/21/2023 [id number] / [id number] / Description:battery Medtronic Lead Kit 60 Cm Implanted:Qty: 1 on 08/22/2022 by Rafia Small MD at OR [facility] N/A: Spine Lumbar 02/01/2026 [id number] / / [id number] Medtronic Lead Kit 60cm Implanted:Qty: 1 on 08/22/2022 by Rafia Small MD at OR [facility] N/A: Spine Lumbar 03/21/2026 [id number] / / [id number] Envelope Tyrx Med Antibacteril - [id number] Implanted:Qty: 1 on 08/22/2022 by Rafia Small MD at OR [facility] N/A: Spine Lumbar [employer] 03/10/2023 [id number] / / [id number] Hemostatic Clip Res 235cm - [id number] Implanted:Qty: 4 on 10/05/2023 by Aj Pruett DO at ENDOSCOPY [facility] [employer] : ENDOSCOPY 02/03/2026 [id number] / / Hemostatic Clip Res 235cm - [id number] Implanted:Qty: 1 on 10/05/2023 by Aj Pruett DO at ENDOSCOPY [facility] [facility] ENDOSCOPY 02/02/2026 [id number] / / documented as of this encounter Visit Diagnoses Diagnosis MyCode Research Other*[id number] documented in this encounter Advance Directives * [...] Power of Attor narda? No Care Teams Food Or Baggage Handling Rampman Relationship Specialty Start Date End Date Scott Weldon MD [address] [place] [address] PCP - General Family Medicine 08/03/18 documented as of this encounter
--- OUTSIDE RECORDS SUMMARY | 2024-05-13 05:11 | External Medical Summary ---
Author Name Unknown Address Unknown Organization : Laboratory Report Ordering Provider Test Date Status KRISHAN WILLAMS 03/25/2024 10:55:26 Final Observation Date Value Abnormality Reference (Units ) Status Glucose Point of Care 03/25/2024 10:55:26 112 70-120 (mg/dL) Final Performing Location
--- OUTSIDE RECORDS SUMMARY | 2024-05-13 05:11 | External Medical Summary | Summary of Care ---
Author Name Unknown Organization [facility] Address [address] [facility] [place] [address] Phone [phone] Care Team Providers Care Galvanizer Name Role Phone Scott Montoya MD Primary Care Provider + Reason for Visit * Reason Onset Date Comments Medication Refill 04/03/2024 Encounter Details Date Type Department Care Team (Late st Contact Info) Description 04/03/2024 Refill Family Practice [facility] 132 [facility] [place] [address] Scott Montoya MD 132 [facility] [place] [address] Controlled substance agreement signed; Chronic bilateral low back pain with sciatica, sciatica laterality unspecified; Chronic pain syndrome Allergies Active Allergy Reactions Criticality Noted Date Comments Naproxen Sodium Bleeding High 11/29/2013 Pollen 12/03/2022 Seasonal Food (See Comments) Anaphylaxis High 04/20/2019 Hot peppers (oils) Kiwi Extract Anaphylaxis High 04/20/2019 documented as of this encounter (statuses as of 04/05/2024) Medications Medication Sig Dispensed Refills Start Date [...] Strip 5 7 Active Insulin Infusion Pump (MINIMInVivo Therapeutics 630G INSULIN PUMP) KITIndications:Type 2 diabetes mellitus with hemoglobin A1c goal of less than 8.0% ([facility]) Use as directed. 8 Active CPAP every [...] suspected opioid overdose. Seek immediate medical attention. [email or web address]/watch?v=v26c [email or web address] 1 Each 3 3 Active Loratadine 10 [...] before bedtime. 300 Capsule 1 4 Active hydrOXYzine HCl 25 MG Oral TabletIndications:A nxiety TAKE 1 TABLET BY MOUTH DURING DAY EVERY 4-6 HOURS NEEDED FOR ANXIETY & 2 TABLETS AT BEDTIME NEEDED FOR ANXIETY 450 Tablet 1 4 Active metFORMIN HCl 1000 MG Oral Tablet (Glucophage)Indicat ions:Type 2 diabetes mellitus with hemoglobin A1c goal of less than 8.0% ([facility]) Take 1 Tablet by mouth daily with breakfast. 90 Tablet 3 4 Active Escitalopram Oxalate 20 MG Oral Tablet (Lexapro) Take 1 Tablet by mouth in the morning. 90 Tablet 1 4 Active Baclofen 10 MG Oral Tablet (Lioresal)Indicatio ns:Back spasm Take 1 Tablet by mouth in the morning and 1 Tablet at noon and 1 Tablet before bedtime. 90 Tablet 2 4 Active traZODone HCl 100 MG Oral Tablet (Desyrel) Take 1-2 Tablets by mouth at bedtime. 180 Tablet 1 4 Active Furosemide 40 MG [...] for nausea. 300 Tablet 1 4 Active Eszopiclone 2 MG Oral Tablet (Lunesta) Take 1 Tablet by mouth at bedtime. 30 Tablet 2 4 Active Albuterol Sulfate HFA 108 (90 [...] skin once a week. 4 Patch 4 04/03/20 24 Discontinu ed(Refill) documented as of this encounter (statuses as of 04/05/2024) Active Problems Problem Noted Date Diagnosed Date [...] as of this encounter (statuses as of 04/05/2024) Resolved Problems Problem Noted Date Diagnosed Date [...] as of this encounter (statuses as of 04/05/2024) Immunizations Name Administration Dates Next Due COVID-19 mRNA, LNP-s, No Pre serve, 2-Dose Series (Pfizer) 11/08/2020,10/11/2020 HEP A - Hepatitis A (Adult > 18 yrs) 04/11/2011, 09/20/2010 Hepatitis B, 20+ yrs 07/05/2015 Pneumococcal Conjugate Vacci ne, 20-valent (Jdazdgn13) 03/13/2023 Pneumococcal Polysaccharide PPV23 (Pneumovax) 02/19/2018,03/09/2007 Seasonal [...] Telephone Encounter - Scott Montoya MD - 04/05/2024 1:54 PM EDTSigned Prescriptions: Disp Refills Buprenorphine 5 MCG/HR Transdermal Patch W*4 Patch0 Sig: Place 1Patch topically on the skin once a week.Authorizing Provider: SCOTT MONTOYA * Telephone Encounter - [facility] - 04/05/2024 10:32 AM EDT Pending Prescriptions: Disp Refills Buprenorphine 5 MCG/HR Transdermal Patch W*4 Patch0 Sig: Place 1 Patch topically on the skin once a week. Electronically signed by [facility] at 04/05/2024 10:32 AM EDT * Telephone Encounter - [facility] - 04/05/2024 10:30 AM EDT I have reviewed the patients controlled substance dispensing history in the Prescription Drug Monitoring Program in compliance with the [facility] regulations before prescribing a controlled substance. PDMP checked on 04/05/2024. Pending Prescriptions: Disp Refills Buprenorphine 5 MCG/HR Transdermal Patch *4 Patch0 Sig: Place 1 Patch topically on the skin once a week. Last Visit: 02/12/2024 (in office), 03/16/2024 (telemedicine) Next Visit: 06/30/2024 Date medication was last filled: 03/10/24 Date medication is due for refill: 04/06/24 Pharmacy: [id number] [address] [facility] Is this request for a controlled [...] Review. Please approve if appropriate. Thank you, Debbi William, PharmD Clinical Pharmacist [facility] ([facility]) 04/05/24 10:30 AM [phone] Electronically signed by [facility] at 04/05/2024 10:32 AM EDT documented in this encounter Plan of Treatment Upcoming Encounters Date Type Department Care Team (Late st Contact Info) Description 04/14/2024 10:00 AM EST Telemedicine Psychiatry [place] [address] [place] [phone] Nhi Fritz, MARKING MACHINE OPERATOR [address] [place] [address] 04/15/2024 11:00 AM EST Nurse Only Hematology/Oncology Treatment, [place] [address] [place] [phone] Nora, Chair [address] [facility] 200 [facility] [place] [address] 04/21/2024 1:00 PM EST Office Visit Pharmacy, [address] [address] [place] [address] [place] [address] 04/28/2024 11:00 AM EST Telemedicine Pharmacy, [facility] [address] [place] [address] 05/12/2024 8:00 AM EST Imaging [facility] 2nd Floor Cardiology, [place] 132 [facility] [phone] 06/03/2024 1:40 PM EST Office Visit Nephrology, [facility] 200 [facility] [place] [address] Jonathan Mathew MD 200 [facility] [place] [address] 06/30/2024 8:00 AM EST Office Visit Family Practice [facility] 132 [facility] [place] [address] Scott Montoya MD 132 [facility] [place] [address] 06/30/2024 1:20 PM EST Office Visit Hepatology, [facility] [address] [place] [address] Jazzy Chu DO [address] [place] [address] 07/08/2024 10:30 AM EST Telemedicine Gastroenterology, [facility] [address] [place] [address] Adam Bradshaw CRNP [address] [place] [address] 09/14/2024 1:45 PM EDT Office Visit Hematology/Oncology [facility] 200 [facility] [place] [phone] Sunil Bourgeois MD 200 [facility] [place] [address] 12/14/2024 12:20 PM EDT Office Visit Family Practice [facility] [address] [place] [address] Scott Montoya MD [address] [place] [address] Scheduled Procedures Name Priority Associated Diagnoses Date/Ti [...] this encounter Medical Devices Implanted Type Area Clinic Cma Device Identifier Shelf Expiration Date Model / Serial / Lot Neurostimul Intellis Adaptiv - [id number] - [id number] Implanted:Qty: 1 on 08/22/2022 by Rafia Small MD at OR [facility] N/A: Spine Lumbar [employer] 06/21/2023 [id number] / [id number] / Description:battery Medtronic Lead Kit 60 Cm Implanted:Qty: 1 on 08/22/2022 by Rafia Small MD at OR [facility] N/A: Spine Lumbar 02/01/2026 [id number] / / [id number] Medtronic Lead Kit 60cm Implanted:Qty: 1 on 08/22/2022 by Rafia Small MD at OR [facility] N/A: Spine Lumbar 03/21/2026 [id number] / / [id number] Envelope Tyrx Med Antibacteril - [id number] Implanted:Qty: 1 on 08/22/2022 by Rafia Small MD at OR [facility] N/A: Spine Lumbar [employer] 03/10/2023 [id number] / / [id number] Hemostatic Clip Res 235cm - [id number] Implanted:Qty: 4 on 10/05/2023 by Aj Pruett DO at ENDOSCOPY [facility] [employer] [facility] ENDOSCOPY 02/03/2026 [id number] / / Hemostatic Clip Res 235cm - [id number] Implanted:Qty: 1 on 10/05/2023 by Aj Pruett DO at ENDOSCOPY [facility] [employer] : ENDOSCOPY 02/02/2026 [id number] / / documented as of this encounter [...] Power of Attor narda? No Care Teams Galvanizer Relationship Specialty Start Date End Date Scott Montoya MD 132 [facility] [place] [address] PCP - General Family Medicine 08/03/18 documented as of this encounter
--- OUTSIDE RECORDS SUMMARY | 2024-05-13 05:12 | External Medical Summary | Summary of Care ---
Author Name Unknown Organization [facility] Address [address] [facility] [place] [address] Phone [phone] Care Team Providers Care Painter Supervisor Name Role Phone Scott Montoya MD Primary Care Provider + Reason for Visit * Reason Onset Date Comments Medication Refill 03/18/2024 Encounter Details Date Type Department Care Team (Late st Contact Info) Description 03/18/2024 Refill Family Practice [facility] 132 [facility] [place] [address] Scott Montoya MD 132 [employer] [place] [address] Allergies Active Allergy Reactions Criticality Noted Date Comments Naproxen Sodium Bleeding High 11/29/2013 Pollen 12/03/2022 Seasonal Food (See Comments) Anaphylaxis High 04/20/2019 Hot peppers (oils) Kiwi Extract Anaphylaxis High 04/20/2019 documented as of this encounter (statuses as of 03/19/2024) Medications Medication Sig Dispensed Refills Start Date [...] ([facility]) Use as directed. 8 Active [...] suspected opioid overdose. Seek immediate medical attention. https://www.Independent [email or web address]/watch?v=v26c Yre6KuE 1 Each 3 3 Active Loratadine 10 [...] less than 8.0% ([facility]) Take 1 Tablet by mouth [...] once a week. 4 Patch 4 Active Albuterol Sulfate HFA 108 (90 Base) MCG/ACT Inhalation Aerosol Solution Inhale 2 Puffs by mouth every 6 hours as needed for Shortness of Breath. 18 g 5 4 Active Albuterol Sulfate HFA 108 (90 Base) MCG/ACT Inhalation Aerosol Solution INHALE 2 PUFFS BY MOUTH EVERY 6 HOURS NEEDED FOR SHORTNESS OF BREATH 18 g 5 4 03/18/20 24 Discontinu ed(Refill) documented as of this encounter (statuses as of 03/19/2024) Active Problems Problem Noted Date Diagnosed Date [...] as of this encounter (statuses as of 03/19/2024) Resolved Problems Problem Noted Date Diagnosed Date [...] Overview: Per Obesity Taxonomy Coronary atherosclerosis of [place] coronary artery 09/15/2008 10/03/2008 Malaise and fatigue [...] as of this encounter (statuses as of 03/19/2024) Immunizations Name Administration Dates Next Due COVID-19 mRNA, LNP-s, No Pre serve, 2-Dose Series (Re-vinyl) 11/08/2020,10/11/2020 HEP A - Hepatitis A (Adult > 18 yrs) 04/11/2011, 09/20/2010 Hepatitis B, 20+ yrs 07/05/2015 Pneumococcal Conjugate Vacci ne, 20-valent ([id number]) 03/13/2023 Pneumococcal Polysaccharide PPV23 (Pneumovax) 02/19/2018,03/09/2007 Seasonal [...] encounter Miscellaneous Notes * Telephone Encounter - Glen Ahumada [facility] - 03/19/2024 7:54 PM EDT Signed Prescriptions: Disp Refills Albuterol Sulfate HFA 108 (90 Base) MCG/AC*18 g 5 Sig: Inhale 2 Puffs by mouth every 6 hours as needed for Shortness of Breath.Authorizing Provider: SCOTT MONTOYA User: GLEN AHUMADA documented in this encounter Plan of Treatment Upcoming Encounters Date Type Department Care Team (Latest Contact Info) Description 4 1:00 PM EDT Hem/Onc Treatment Hematology/Onco logy Treatment, [address] [place] [address] Nora, Chair 6 Hem Onc [address] [address] 4 12:30 PM EDT Office Visit Ophthalmology, [facility] [address] [place] [address] Rolan Self DO 21 [facility] [place] [address] 4 11:15 AM EDT Hospital Encounter ENDO [facility], Endoscopy Room [facility] [address] [place] [phone] Aj Pruett DO 132 [place] [address] 4 11:15 AM EDT - 4 11:45 AM EDT Surgery ENDO OSSC, Endoscopy Room [facility] [address] [place] [phone] Aj Pruett DO [address] [place] [address] ESOPHAGOGASTRODUODENOSCOPY (EGD), FLEXIBLE, TRANSORAL, DIAGNOSTIC 4 10:00 AM EST Telemedicine Psychiatry [address], [place] [address] [place] [address] Nhi Fritz CRNP [address] [place] [address] 4 1:00 PM EST Office Visit Pharmacy, [place] [address] [place] [address] [place] [address] [place] [address] 4 11:00 AM EST Telemedicine Pharmacy, [facility] 132 [facility] [address] [facility] 132 [facility] [place] [address] 4 8:00 AM EST Imaging [facility] 2nd Floor Cardiology, [place] 132 [facility] [place] [address] 4 1:40 PM EST Office Visit Nephrology, [facility] [address] [place], [place] [address] Jonathan Mathew MD [address] [place] [address] 5 8:00 AM EST Office Visit Family Practice [facility] [address] [facility] [place] [address] Scott Montoya MD [address] [place] [address] 5 1:20 PM EST Office Visit Hepatology, [facility] 132 [facility] [place], [place] [address] Jazzy Chu DO [address] [place] [address] 5 10:30 AM EST Telemedicine Gastroenterolog y, [facility] 132 [place] [address] Adam Bradshaw CRNP 132 [facility] [place] [address] 5 1:45 PM EDT Office Visit Hematology/[facility]co logy [facility] [address] [place] [phone] Sunil Bourgeois MD [address] [place] [address] 5 12:20 PM EDT Office Visit Family Practice [facility] 132 [facility] [place] [address] Scott Montoya MD 132 [employer] [place] [address] Scheduled Procedures Name Priority Associated Diagnoses Date/Ti [...] Additional history exists COVID-19 Vaccine ( season) 2024 11/08/2020, 10/11/2020 [...] 03/10/2024, 0 10/2023, 02/03/2024, Additional history exists Pap Smear 09/07/2026 09/08/2023, [...] this encounter Medical Devices Implanted Type Area Ell Teacher Device Identifier Shelf Expiration Date Model / Serial / Lot Neurostimul Intellis Adaptiv - [id number] - [id number] Implanted:Qty: 1 on 08/22/2022 by Rafia Small MD at OR [facility] N/A: Spine Lumbar [employer] 06/21/2023 [id number] / [id number] / Description:battery Medtronic Lead Kit 60 Cm Implanted:Qty: 1 on 08/22/2022 by Rafia Small MD at OR [facility] N/A: Spine Lumbar 02/01/2026 [id number] / / [id number] Medtronic Lead Kit 60cm Implanted:Qty: 1 on 08/22/2022 by Raifa Small MD at OR [facility] N/A: Spine Lumbar 03/21/2026 [id number] / / [id number] Envelope Tyrx Med Antibacteril - [id number] Implanted:Qty: 1 on 08/22/2022 by Rafia Small MD at OR [facility] N/A: Spine Lumbar [employer] 03/10/2023 [id number] / / [id number] Hemostatic Clip Res 235cm - [id number] Implanted:Qty: 4 on 10/05/2023 by Aj Purett DO at ENDOSCOPY [facility] [employer] : ENDOSCOPY 02/03/2026 [id number] / / Hemostatic Clip Res 235cm - [id number] Implanted:Qty: 1 on 10/05/2023 by Aj Pruett DO at ENDOSCOPY [facility] : ENDOSCOPY 02/02/2026 [id number] / / documented as of this encounter [...] Power of Attor narda? No Care Teams Painter Supervisor Relationship Specialty Start Date End Date Scott Montoya MD [address] [place] [address] PCP - General Family Medicine 08/03/18 documented as of this encounter
--- OUTSIDE RECORDS SUMMARY | 2024-05-13 05:12 | External Medical Summary | Summary of Care ---
Author Name Unknown Organization [facility] Address [address] [facility] [place] [address] Phone [phone] Care Team Providers Care Precision Instrument And Tool Maker Name Role Phone Scott Weldon MD Primary Care Provider + Encounter Details Date Type Department Care Team (Late st Contact Info) Description 03/22/2024 Population Health External Data Unspecified Department Allergies Active Allergy Reactions Criticality Noted Date Comments Naproxen Sodium Bleeding High 11/29/2013 Pollen 12/03/2022 Seasonal Food (See Comments) Anaphylaxis High 04/20/2019 Hot peppers (oils) Kiwi Extract Anaphylaxis High 04/20/2019 documented as of this encounter (statuses as of 03/23/2024) Medications Medication Sig Dispensed Refills Start Date [...] hemoglobin A1c goal of less than 8.0% ([facility]) Use as directed. 07/30/2017 Active [...] suspected opioid overdose. Seek immediate medical attention. https://www.youtFindTheBest .com/watch?v=v26cDa [email or web address] 1 Each 3 11/27/2022 Active [...] hemoglobin A1c goal of less than 8.0% ([facility]),DM type 2, not at goal ([facility]) INJECT UP TO 200 [...] as of this encounter (statuses as of 03/23/2024) Active Problems Problem Noted Date Diagnosed Date [...] as of this encounter (statuses as of 03/23/2024) Resolved Problems Problem Noted Date Diagnosed Date [...] Historical. ADV EFF MED-BIOL SUB NOS 07/02/2001 04/ Major depressive disorder 07/02/2001 Overview: ICD-10 update [...] as of this encounter (statuses as of 03/23/2024) Immunizations Name Administration Dates Next Due COVID-19 mRNA, LNP-s, No Pre serve, 2-Dose Series ([employer]s) 11/08/2020,10/11/2020 HEP A - Hepatitis A (Adult > 18 yrs) 04/11/2011, 09/20/2010 Hepatitis B, 20+ yrs 07/05/2015 Pneumococcal Conjugate Vacci ne, 20-valent (Zudmjic13) 03/13/2023 Pneumococcal Polysaccharide PPV23 (Pneumovax) 02/19/2018,03/09/2007 Seasonal [...] Contact Info) Description 4 12:30 PM EDT Office Visit Ophthalmology, [facility] 132 [place] [phone] Rolan Self, DO 21 [place] [address] 4 11:15 AM EDT Hospital Encounter ENDO [facility], Endoscopy Room [facility] 132 [place] [phone] Aj Pruett, DO [address] [place] [address] 4 11:15 AM EDT - 4 11:45 AM EDT Surgery ENDO OSS, Endoscopy Room [facility] [address], [place] [address] Aj Pruett, DO [address] [place] [address] ESOPHAGOGASTRODUODENOSCOPY (EGD), FLEXIBLE, TRANSORAL, DIAGNOSTIC 4 10:00 AM EST Telemedicine Psychiatry [place] , [place] 9 [facility] [address] Nhi Fritz, MORTGAGE LOAN COORDINATOR [address] [place] [address] 4 11:00 AM EST Nurse Only Hematology/Onco logy Treatment, [place] [address] [place] [phone] Nora, Chair 3 Hem Onc Sc[address]ery [address] [place] [address] 4 1:00 PM EST Office Visit Pharmacy, [address] [address] [place] [address] [place] [address] 4 11:00 AM EST Telemedicine Pharmacy, [facility] 132 [facility] [place] [address] [place] [address] 4 8:00 AM EST Imaging [facility] 2nd Floor Cardiology, [place] 132 [facility] [address] 4 1:40 PM EST Office Visit Nephrology, [facility] Nora [address] [place], [place] [address] Jonathan Mathew MD [address] [place] [address] 5 8:00 AM EST Office Visit [facility] 132 [place] [address] Scott Weldon MD 132 [place] [address] 5 1:20 PM EST Office Visit Hepatology, [facility] 132 [place] [address] Jazzy Chu DO 132 [facility] [address] 5 10:30 AM EST Telemedicine Gastroenterolog y, [facility] 132 [place] [address] Adam Bradshaw CRNP 132 [place] [address] 5 1:45 PM EDT Office Visit [facility] [place] [address] [place], [place] [phone] Sunil Bourgeois MD [address] [place], [place] [address] 5 12:20 PM EDT Office Visit [facility] [address] [facility] [place] [address] Scott Weldon MD [address] [place] [place] [address] Scheduled Procedures Name Priority Associated Diagnoses Date/Ti [...] 03/10/2025 03/10/2024, 10/2023, 02/03/2024, Additional history exists Pap Smear [...] this encounter Medical Devices Implanted Type Area Cardiothoracic Anesthesia Technician Device Identifier Shelf Expiration Date Model / Serial / Lot Neurostimul Intellis Adaptiv - [id number] - [id number] Implanted:Qty: 1 on 08/22/2022 by Rafia Small MD at OR [facility] N/A: Spine Lumbar [employer] 06/21/2023 [id number] / [id number] / Description:battery Medtronic Lead Kit 60 Cm Implanted:Qty: 1 on 08/22/2022 by Rafia Small MD at OR [facility] N/A: Spine Lumbar 02/01/2026 [id number] / / [id number] Medtronic Lead Kit 60cm Implanted:Qty: 1 on 08/22/2022 by Rafia Small MD at OR [facility] N/A: Spine Lumbar 03/21/2026 [id number] / / [id number] Envelope Tyrx Med Antibacteril - [id number] Implanted:Qty: 1 on 08/22/2022 by Rafia Small MD at OR [facility] N/A: Spine Lumbar [employer] 03/10/2023 [id number] / / [id number] Hemostatic Clip Res 235cm - [id number] Implanted:Qty: 4 on 10/05/2023 by Aj Pruett, DO at ENDOSCOPY [facility] : ENDOSCOPY 02/03/2026 [id number] / / Hemostatic Clip Res 235cm - [id number] Implanted:Qty: 1 on 10/05/2023 by Aj Pruett, DO at ENDOSCOPY [facility] : ENDOSCOPY 02/02/2026 [id number] / / documented as of this encounter [...] Power of Attor narda? No Care Teams Precision Instrument And Tool Maker Relationship Specialty Start Date End Date Scott Weldon MD [address] [place] [address] PCP - General Family Medicine 08/03/18 documented as of this encounter
--- OUTSIDE RECORDS SUMMARY | 2024-05-13 05:12 | External Medical Summary | Summary of Care ---
Author Name Unknown Organization [facility] Address [address] [facility] [place] [address] Phone [phone] Care Team Providers Care Nurses Superintendent Name Role Phone Scott Weldon MD Primary Care Provider + Reason for Visit * Reason Comments IV Therapy venofer Encounter Details Date Type Department Care Team (Latest Contact Info) Description 03/21/2024 1:00 PM EDT Hem/Onc Treatment Hematology/Oncology Treatment, [address] [address] Park, Chair [address] [address] Iron deficiency anemia due to chronic blood loss*; Cirrhosis of liver without ascites, unspecified hepatic cirrhosis type (HCC) Allergies Active Allergy Reactions Criticality Noted Date Comments Naproxen Sodium Bleeding High 11/29/2013 Pollen 12/03/2022 Seasonal Food (See Comments) Anaphylaxis High 04/20/2019 Hot peppers (oils) Kiwi Extract Anaphylaxis High 04/20/2019 documented as of this encounter (statuses as of 03/21/2024) Medications Medication Sig Dispensed Refills Start Date [...] Strip 5 02/17/2017 Active Insulin Infusion Pump (MINIMBrass Monkey 630G INSULIN PUMP) KITIndications:Type 2 diabetes mellitus [...] suspected opioid overdose. Seek immediate medical attention. https://www.[email or web address] [email or web address]/watch?v=v26cDa [email or web address] 1 Each 3 11/27/2022 Active [...] the morning. 90 Tablet 3 02/26/2024 Active Metoclopramide HCl 5 MG Oral Tablet [...] once a week. 4 Patch 03/10/2024 Active documented as of this encounter (statuses as of 03/21/2024) Active Problems Problem Noted Date Diagnosed Date [...] as of this encounter (statuses as of 03/21/2024) Resolved Problems Problem Noted Date Diagnosed Date [...] Overview: Per Obesity Taxonomy Coronary atherosclerosis of cabazon coronary artery 09/15/2008 10/03/2008 Malaise and fatigue [...] as of this encounter (statuses as of 03/21/2024) Immunizations Name Administration Dates Next Due COVID-19 mRNA, LNP-s, No Pre serve, 2-Dose Series (Guzu) 11/08/2020,10/11/2020 HEP A - Hepatitis A (Adult > 18 yrs) 04/11/2011, 09/20/2010 Hepatitis B, 20+ yrs 07/05/2015 Pneumococcal Conjugate Vacci ne, 20-valent (Xmsnwvf78) 03/13/2023 Pneumococcal Polysaccharide PPV23 (Pneumovax) 02/19/2018,03/09/2007 Seasonal [...] 4 12:30 PM EDT Office Visit Ophthalmology, [facility] [address] [place] [address] Rolan eSlf, DO [address] [place] [address] 4 11:15 AM EDT Hospital Encounter ENDO O[facility], Endoscopy Room [facility] [address] [place] [phone] Aj Pruett, [address] [place] [address] 4 11:15 AM EDT - 4 11:45 AM EDT Surgery ENDO [facility], Endoscopy Room [facility] [address] [place] [phone] Aj Pruett DO [address] [place] [address] ESOPHAGOGASTRODUODENOSCOPY (EGD), FLEXIBLE, TRANSORAL, DIAGNOSTIC 4 10:00 AM EST Telemedicine Psychiatry [facility] [address] [place] [address] Nhi Fritz CRNP 1800 [place] [address] 4 11:00 AM EST Nurse Only Hematology/Onco logy Treatment, [employer] [place] [address] [facility] [place] [address] Nora, Chair 3 Hem Onc Scenery 200 [facility] [place] [place] [address] 4 1:00 PM EST Office Visit Pharmacy, [address] [address] [facility] [place] [address] 4 11:00 AM EST Telemedicine Pharmacy, [facility] [place] [address] [facility] 132 [facility] [place] [address] 4 8:00 AM EST Imaging [facility] 2nd Floor Cardiology, [employer] [place] [address] [facility] [place] [phone] 4 1:40 PM EST Office Visit Nephrology, [facility] [address] [employer] [place], [place] [address] Jonathan Mathew MD [address] [employer] [place], [place] [address] 5 8:00 AM EST Office Visit [facility] [address] [facility] [place] [address] Scott Weldon MD [address] [place] [address] 5 1:20 PM EST Office Visit Hepatology, [facility] [place] [address] Jazzy Chu DO [address] [place] [address] 5 10:30 AM EST Telemedicine Gastroenterolog y, [facility] 132 [facility] [place] [address] Adam Bradshaw CRNP [address] [place] [address] 5 1:45 PM EDT Office Visit Hematology/Onco logy [facility] [address] [place] [phone] Sunil Bourgeois MD [address] [place] [address] 5 12:20 PM EDT Office Visit [facility] [address] [facility] [place] [address] Scott Weldon MD [address] [place] [address] Scheduled Procedures Name Priority Associated Diagnoses Date/Ti [...] this encounter Medical Devices Implanted Type Area Metal Smelter Device Identifier Shelf Expiration Date Model / Serial / Lot Neurostimul Intellis Adaptiv - [id number] - [id number] Implanted:Qty: 1 on 08/22/2022 by Rafia Small MD at OR [facility] N/A: Spine Lumbar [employer] 06/21/2023 [id number] / [id number] / Description:battery Medtronic Lead Kit 60 Cm Implanted:Qty: 1 on 08/22/2022 by Rafia Small MD at OR [facility] N/A: Spine Lumbar 02/01/2026 [id number] / / [id number] Medtronic Lead Kit 60cm Implanted:Qty: 1 on 08/22/2022 by Rafia Small MD at OR [facility] N/A: Spine Lumbar 03/21/2026 [id number] / / [id number] Envelope Tyrx Med Antibacteril - [id number] Implanted:Qty: 1 on 08/22/2022 by Rafia Small MD at OR [facility] N/A: Spine Lumbar [employer] 03/10/2023 [id number] / / [id number] Hemostatic Clip Res 235cm - [id number] Implanted:Qty: 4 on 10/05/2023 by Aj Pruett DO at ENDOSCOPY [facility] : ENDOSCOPY 02/03/2026 [id number] / / Hemostatic Clip Res 235cm - [id number] Implanted:Qty: 1 on 10/05/2023 by Aj Pruett DO at ENDOSCOPY [facility] : ENDOSCOPY 02/02/2026 [id number] / / documented as of this encounter Visit Diagnoses Diagnosis Iron deficiency anemia due to chronic blood loss- Primary Iron deficiency anemia secondary to blood loss (chronic) Cirrhosis of liver without ascites, unspecified hepatic cirrhosis type (HCC) [place] hypertensive gastropathy (HCC) Other specified disorder of stomach and duodenum Multiple gastric polyps Benign neoplasm of stomach documented in this encounter Administered Medications Active Administered Medications - up to 3 most recent administrations Medication Order MAR Action Action Date Dose Rate Site diphenhydrAMINE (Benadryl) inj 50 mg 50 mg, IV Push, ONCE PRN Other, Hypersensitivity Reaction, Starting on Thu03/21/24 at 1337, Until Thu03/22/24 at 1336, For 24 hours EPINEPHrine 1 MG/ML inj 0.3 mg 0.3 mg, Intramuscular, ONCE PRN Other, Hypersensitivity Reaction or Anaphylaxis, Starting on Thu03/21/24 at 1337, Until Thu03/22/24 at 1336, For 24 hours hEParin 100 UNIT/ML Lock Flush inj 500 Units 500 Units (5 mL), IV Lock, PRN Other, IV Flush, Starting on Thu03/21/24 at 1337, Until Thu03/22/24 at 1336, For 24 hours, Do not flush if lock, PICC, or central line not in place; IV infusing or unable to flush. Given 03/21/2024 3:21 PM EDT 500 Units Hydrocortisone Sod Suc (PF) (Solu-Cortef) inj 100 mg 100 mg, IV Push, ONCE PRN Other, Hypersensitivity Reaction, Starting on Thu03/21/24 at 1337, Until Thu03/22/24 at 1336, For 24 hours NSS infusion 500 mL, Intravenous, at 50 mL/hr, CONTINUOUS, Starting on Thu03/21/24 at 1445, Until Thu03/22/24 at 0044 Start Infusion 03/21/2024 1:37 PM EDT 500 mL 50 mL/hr oxygen GAS Inhalation, OXYGEN, First dose on Thu03/21/24 at 1600, Until Discontinued, Device/Managed by: Low [...] saturation is greater than or equal to 93% sodium chloride 0.9 % flush central line 10 mL 10 mL, IV Push, PRN Other, IV Flush, Starting on Thu03/21/24 at 1337, Until Thu03/22/24 at 1336, For 24 hours, Do not flush if lock, PICC, or central line not in place; IV infusing or unable to flush. Given 03/21/2024 3:21 PM EDT 10 mL Inactive Administered Medications - up to 3 most recent administrations Medication Order MAR Action Action Date Dose Rate Site Iron Sucrose (Venofer) 300 mg in NSS 250 mL ivpb 300 mg, IV Piggyback, ONCE, 1 dose, On Thu03/21/24 at 1515, Administer over 90 Minutes Start Infusion 03/21/2024 1:38 PM EDT 300 mg 180 mL/hr documented in this [...] Power of Attor narda? No Care Teams Nurses Superintendent Relationship Specialty Start Date End Date Damaske, Scott Enio, MD 132 [place] [address] PCP - General Family Medicine 08/03/18 documented as of this encounter
--- OUTSIDE RECORDS SUMMARY | 2024-05-13 05:13 | External Medical Summary | Summary of Care ---
Author Name Unknown Organization [facility] Address [address] [facility] [place] [address] Phone [phone] Care Team Providers Care Tailings Dam Pumper Name Role Phone Scott Weldon MD Primary Care Provider + Reason for Visit * Reason Onset Date Comments Appointment 03/16/2024 [place] HEPATOBILIARY SYSTEM WITH PHARMACOLOGIC INTERVENTION Encounter Details Date Type Department Care Team (Late st Contact Info) Description 03/16/2024 Telephone Family Practice [facility] [address] [facility] [place] [address] Scott Weldon MD 132 [facility] [place] [address] Appointment (NM HEPATOBILIARY SYSTEM WITH ... Allergies Active Allergy Reactions Criticality Noted Date Comments Naproxen Sodium Bleeding High 11/29/2013 Pollen 12/03/2022 Seasonal Food (See Comments) Anaphylaxis High 04/20/2019 Hot peppers (oils) Kiwi Extract Anaphylaxis High 04/20/2019 documented as of this encounter (statuses as of 03/16/2024) Medications Medication Sig Dispensed Refills Start Date [...] Strip 5 02/17/2017 Active Insulin Infusion Pump (MINIMMultiply 630G INSULIN PUMP) KITIndications:Type 2 diabetes mellitus [...] suspected opioid overdose. Seek immediate medical attention. [email or web address] 1 Each 3 11/27/2022 Active [...] NEEDED FOR NAUSEA 30 Tablet 08/10/2023 Active Albuterol Sulfate HFA 108 (90 Base) MCG/ACT Inhalation Aerosol Solution INHALE 2 PUFFS BY MOUTH EVERY 6 HOURS NEEDED FOR SHORTNESS OF BREATH 18 g 5 01/07/2024 Active Meclizine HCl 25 MG Oral Tablet [...] as of this encounter (statuses as of 03/16/2024) Active Problems Problem Noted Date Diagnosed Date [...] as of this encounter (statuses as of 03/16/2024) Resolved Problems Problem Noted Date Diagnosed Date [...] Overview: Per Obesity Taxonomy Coronary atherosclerosis of [place] coronary artery 09/15/2008 10/03/2008 Malaise [...] as of this encounter (statuses as of 03/16/2024) Immunizations Name Administration Dates Next Due COVID-19 mRNA, LNP-s, No Pre serve, 2-Dose Series (Semantics3) 11/08/2020,10/11/2020 HEP A - Hepatitis A (Adult > 18 yrs) 04/11/2011, 09/20/2010 Hepatitis B, 20+ yrs 07/05/2015 Pneumococcal Conjugate Vacci ne, 20-valent ([id number]) 03/13/2023 Pneumococcal Polysaccharide PPV23 (Pneumovax) 02/19/2018,03/09/2007 Seasonal [...] encounter Miscellaneous Notes * Telephone Encounter - Zainab Murcia OSA - 03/16/2024 1:12 PM EDT NM HEPATOBILIARY SYSTEM WITH PHARMACOLOGIC INTERVENTION documented in this encounter Plan of Treatment Upcoming Encounters Date Type Department Care Team (Latest Contact Info) Description 4 1:00 PM EDT Hem/Onc Treatment Hematology/Onco logy Treatment, [place] [address] [place] [phone] Park, Chair 6 Hem Onc Scenery [address] [place] [address] 4 12:30 PM EDT Office Visit Ophthalmology, [facility] [address] [place] [address] Rolan Self, DO [address] [place] [address] 4 11:15 AM EDT Hospital Encounter ENDO [facility], Endoscopy Room [facility] [address] [place] [phone] Aj Pruett, DO [address] [place] [address] 4 11:15 AM EDT - 4 11:45 AM EDT Surgery ENDO [facility], Endoscopy Room [facility] [address] [place] [phone] Aj Pruett, DO [address] [place] [address] ESOPHAGOGASTRODUODENOSCOPY (EGD), FLEXIBLE, TRANSORAL, DIAGNOSTIC 4 10:00 AM EST Telemedicine Psychiatry [facility] [place] [address] [place] [address] Nhi Fritz, POSITIVE PRINTER OPERATOR [address] [place] [address] 4 1:00 PM EST Office Visit [address], [place] [address] [place] [address] [address] [facility], [place] [address] 4 11:00 AM EST Telemedicine Pharmacy, [facility] [address] [facility] [place] [address] 4 1:40 PM EST Office Visit Nephrology, [facility] [address] [place] [address] Jonathan Mathew MD [address] [place] [address] 5 8:00 AM EST Office Visit Family Practice [facility] [place] [address] Scott Weldon MD [address] [facility] [place] [address] 5 1:20 PM EST Office Visit Hepatology, [facility] [address] [facility] [place] [address] Jazzy Chu DO [address] [facility] [place] [address] 5 10:30 AM EST Telemedicine Gastroenterolog y, [facility] [address] [facility] [place] [address] Adam Bradshaw CRNP [address] [place] [address] 5 1:45 PM EDT Office Visit Hematology/Onco logy [facility] [address] [place] [address] Sunil Bourgeois MD [address] [place] [address] 12:20 PM EDT Office Visit Family [facility] [address] [place] [address] Scott Weldon MD [address] [place] [address] Scheduled Procedures Name Priority Associated Diagnoses Date/Ti [...] this encounter Medical Devices Implanted Type Area Sinker Puller Device Identifier Shelf Expiration Date Model / Serial / Lot Neurostimul Intellis Adaptiv - [id number] - [id number] Implanted:Qty: 1 on 08/22/2022 by Rafia Small MD at OR [facility] N/A: Spine Lumbar [employer] 06/21/2023 [id number] / [id number] / Description:battery Medtronic Lead Kit 60 Cm Implanted:Qty: 1 on 08/22/2022 by Rafia Small MD at OR [facility] N/A: Spine Lumbar 02/01/2026 [id number] / / [id number] Medtronic Lead Kit 60cm Implanted:Qty: 1 on 08/22/2022 by Rafia Small MD at OR [facility] N/A: Spine Lumbar 03/21/2026 [id number] / / [id number] Envelope Tyrx Med Antibacteril - [id number] Implanted:Qty: 1 on 08/22/2022 by Rafia Small MD at OR [facility] N/A: Spine Lumbar [employer] 03/10/2023 [id number] / / [id number] Hemostatic Clip Res 235cm - [id number] Implanted:Qty: 4 on 10/05/2023 by Aj Pruett DO at ENDOSCOPY [facility] [employer] [facility] ENDOSCOPY 02/03/2026 [id number] / / Hemostatic Clip Res 235cm - [id number] Implanted:Qty: 1 on 10/05/2023 by Aj Pruett DO at ENDOSCOPY [facility] [employer] [facility] ENDOSCOPY 02/02/2026 [id number] / / documented as of this encounter [...] Power of Attor narda? No Care Teams T[place]ings [place] Pumper Relationship Specialty Start Date End Date Scott Weldon MD [address] [place] [address] PCP - General Family Medicine 08/03/18 documented as of this encounter
--- OUTSIDE RECORDS SUMMARY | 2024-05-13 05:13 | External Medical Summary | Summary of Care ---
Author Name Unknown Organization [facility] Address [address] [facility] [place] [address] Phone [phone] Care Team Providers Care Ship Rigger Apprentice Name Role Phone Scott Weldon MD Primary Care Provider + Reason for Visit * Reason Onset Date Comments Medication Management 03/15/2024 Venofer Encounter Details Date Type Department Care Team (Late st Contact Info) Description 03/15/2024 Telephone Hematology/Oncology Treatment, [place] [address] [place] [address] Sunil Bourgeois MD 200 [place] [address] Medication Management (Venofer) Allergies Active Allergy Reactions Criticality Noted Date Comments Naproxen Sodium Bleeding High 11/29/2013 Pollen 12/03/2022 Seasonal Food (See Comments) Anaphylaxis High 04/20/2019 Hot peppers (oils) Kiwi Extract Anaphylaxis High 04/20/2019 documented as of this encounter (statuses as of 03/15/2024) Medications Medication Sig Dispensed Refills Start Date [...] Strip 5 02/17/2017 Active Insulin Infusion Pump (MINIMShowKit 630G INSULIN PUMP) KITIndications:Type 2 diabetes mellitus with hemoglobin A1c goal of less than 8.0% ([facility]) Use as directed. 07/30/2017 Active [...] suspected opioid overdose. Seek immediate medical attention. [email or web address]?v=[email or web address] 1 Each 3 11/27/2022 Active [...] as of this encounter (statuses as of 03/15/2024) Active Problems Problem Noted Date Diagnosed Date [...] as of this encounter (statuses as of 03/15/2024) Resolved Problems Problem Noted Date Diagnosed Date [...] Overview: Per Obesity Taxonomy Coronary atherosclerosis of [place] coronary artery 09/15/2008 10/03/2008 Malaise and fatigue [...] as of this encounter (statuses as of 03/15/2024) Immunizations Name Administration Dates Next Due COVID-19 mRNA, LNP-s, No Pre serve, 2-Dose Series (Spatial Photonics) 11/08/2020,10/11/2020 HEP A - Hepatitis A (Adult > 18 yrs) 04/11/2011, 09/20/2010 Hepatitis B, 20+ yrs 07/05/2015 Pneumococcal Conjugate Vacci ne, 20-valent (Qyifyuz50) 03/13/2023 Pneumococcal Polysaccharide PPV23 (Pneumovax) 02/19/2018,03/09/2007 Seasonal [...] Telephone Encounter - Jazzy Hogan OSA - 03/15/2024 1:59 PM EDT Pt is scheduled and aware * Telephone Encounter - Tamera Henry RN - 03/15/2024 12:23 PM EDT Scheduling: please call patient to schedule 2 hour appt "venofer" (Bk). Patient will need this once a month until follow up appt. With all future appts (except first one),appt note will need to state "draw CBCd, ferritin, iron screen with IV start". Thanks! * Telephone Encounter - Jaja Murray LPN - 03/15/2024 10:45 AM EDT Order received for Venofer [place] plan built and routed to provider No prior authorization required documented in this encounter Plan of Treatment Upcoming Encounters Date Type Department Care Team (Latest Contact Info) Description 4 12:20 PM EDT Office Visit Family Practice [facility] [address] [place] [address] Scott Weldon MD [address] [place] [address] 4 1:00 PM EDT Hem/Onc Treatment Hematology/Onco logy Treatment, [place] [address] [facility] [address] [place] [phone] [place], Chair 6 Hem Onc Scenery [address] [place] [address] 4 12:30 PM EDT Office Visit Ophthalmology, [facility] [address] [place] [address] Rolan Self, DO [address] [place] [address] 4 11:15 AM EDT Hospital Encounter ENDO [facility], Endoscopy Room [facility] [address] [place] [address] Aj Pruett, DO [address] [place] [address] 4 11:15 AM EDT - 4 11:45 AM EDT Surgery ENDO [facility], Endoscopy Room [facility] [address] [place] [address] Aj Pruett, DO [address] [place] [address] ESOPHAGOGASTRODUODENOSCOPY (EGD), FLEXIBLE, TRANSORAL, DIAGNOSTIC 4 10:00 AM EST Telemedicine Psychiatry [facility] [address] [place] [address] Nhi Fritz CRNP [address] [place] [address] 4 1:00 PM EST Office Visit Pharmacy, [address] [address] [place] [address] [place] [address] 4 11:00 AM EST Telemedicine Pharmacy, [facility] [address] [facility] 132 [place] [address] 4 1:40 PM EST Office Visit Nephrology, [place] [address] [place] [address] Jonathan Mathew MD [address] [place] [address] 5 8:00 AM EST Office Visit Family Practice [facility] [place] [address] Scott Weldon MD [address] [place] [address] 5 1:20 PM EST Office Visit Hepatology, [facility] 132 [place] [address] Jazzy Chu DO [address] [place] [address] 5 10:30 AM EST Telemedicine Gastroenterolog y, [facility] 132 [facility] [place] [address] Adam Bradshaw CRNP [address] [facility] [place] [address] 5 1:45 PM EDT Office Visit Hematology/Onco logy [facility] 200 [facility] [place] [phone] Sunil Bourgeois MD [address] [place], [place] [address] Scheduled Procedures Name Priority Associated Diagnoses Date/Ti [...] this encounter Medical Devices Implanted Type Area Engineering Writer Device Identifier Shelf Expiration Date Model / Serial / Lot Neurostimul Intellis Adaptiv - [id number] - [id number] Implanted:Qty: 1 on 08/22/2022 by Rafia Small MD at OR [facility] N/A: Spine Lumbar [employer] 06/21/2023 [id number] / [id number] / Description:battery Medtronic Lead Kit 60 Cm Implanted:Qty: 1 on 08/22/2022 by Rafia Small MD at OR [facility] N/A: Spine Lumbar 02/01/2026 [id number] / / [id number] Medtronic Lead Kit 60cm Implanted:Qty: 1 on 08/22/2022 by Rafia Small MD at OR [facility] N/A: Spine Lumbar 03/21/2026 [id number] / / [id number] Envelope Tyrx Med Antibacteril - [id number] Implanted:Qty: 1 on 08/22/2022 by Rafia Small MD at OR [facility] N/A: Spine Lumbar [employer] 03/10/2023 [id number] / / [id number] Hemostatic Clip Res 235cm - [id number] Implanted:Qty: 4 on 10/05/2023 by Aj Pruett DO at ENDOSCOPY [facility] [employer] ENDOSCOPY 02/03/2026 [id number] / / Hemostatic Clip Res 235cm - [id number] Implanted:Qty: 1 on 10/05/2023 by Aj Pruett DO at ENDOSCOPY [facility] [employer] [facility] ENDOSCOPY 02/02/2026 [id number] / / documented as of this encounter [...] Power of Attor narda? No Care Teams Ship Rigger Apprentice Relationship Specialty Start Date End Date Scott Weldon MD [address] [place] [address] PCP - General Family Medicine 08/03/18 documented as of this encounter
--- OUTSIDE RECORDS SUMMARY | 2024-05-13 05:13 | External Medical Summary | Summary of Care ---
Author Name Unknown Organization [facility] Address [address] [facility] [place] [address] Phone [phone] Care Team Providers Care Broiler Supervisor Name Role Phone Scott Weldon MD Primary Care Provider + Reason for Visit * Reason Comments Follow Up Encounter Details Date Type Department Care Team (Late st Contact Info) Description 03/15/2024 8:45 AM EDT Office Visit [facility]ology[facility] [place] [address] [facility] [place] [phone] Sunil Bourgeois MD [address] [facility] [place] [address] Iron deficiency anemia due to chronic blood [...] Strip 5 02/17/2017 Active Insulin Infusion Pump ([employer] 630G INSULIN PUMP) KITIndications:Type 2 diabetes mellitus with hemoglobin A1c goal of less than 8.0% ([facility]) Use as directed. 07/30/2017 Active [...] suspected opioid overdose. Seek immediate medical attention. [email or web address]://[email or web address] [email or web address]/[email or web address]?v=v26cDa [email or web address] 1 Each 3 11/27/2022 Active [...] Overview: Per Obesity Taxonomy Coronary atherosclerosis of [place] coronary artery 09/15/2008 10/03/2008 Malaise and fatigue [...] mRNA, LNP-s, No Pre serve, 2-Dose Series (Kiwilogic) 11/08/2020,10/11/2020 HEP A - Hepatitis A (Adult > 18 yrs) 04/11/2011, 09/20/2010 Hepatitis B, 20+ yrs 07/05/2015 Pneumococcal Conjugate Vacci ne, 20-valent ([id number]) 03/13/2023 Pneumococcal Polysaccharide PPV23 (Pneumovax) 02/19/2018,03/09/2007 Seasonal [...] Sign Reading Time Taken Comments Blood Pressure 111/74 03/15/2024 8:44 AM EDT Pulse 84 03/15/2024 8:44 AM EDT Temperature 36.7 C (98.1 F) 03/15/2024 8:44 AM ED T Respiratory Rate - - Oxygen Saturation 92% 03/15/2024 8:44 AM EDT Inhaled Oxygen Concentration - - Weight 105.2 kg (232 lb) 03/15/2024 8:44 AM EDT Height - - Body Mass Index 39.82 02/12/2024 10:50 AM EDT documented in this encounter Functional [...] Progress Notes * Sunil Bourgeois MD - 03/15/2024 8:45 AM EDT Hematology/Oncology Outpatient Clinic note [facility] [address] [place] [address] Name: Carmen Tyson Date: 10/12/2020 CHIEF COMPLAINT: [...] Observation. Could not tolerate oral iron treatment. - Planning for IV iron with Venofer every 4 weekly and she will have port flush at the same time x6. Will check CBCD Ferritin, iron profile every 4 weekly. PREVIOUS TREATMENT: -No blood transfusion the past. [...] she had several imaging studies done at [facility], no ETOH abuse, imaging study showed [...] August of 2023, she was admitted at [facility] for few days, reviewed hospital records, she had upper GI bleed, she was seen by GI, hemoglobin level dropped down to around 11.2 g/dL Platelet count stayed around 60,000 range, normal PT and PTT., Stable and normal Kidney liver function test noted. -Ferritin level was around 74 (08/13/2023). She did not receive any blood transfusion. Recently she was admitted for low blood pressure, antihypertensives discontinued since then. Reviewed hospital records. Now has come the clinic for the follow-up, her main symptoms are excessive tiredness, has some intermittent blood in the stool mainly black stool, sometimes bright red blood stool, perhaps once a week. No nausea, no vomiting, current weight 222 lb. Ambulates slowly with the help of the cane. 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 Social Needs Financial resource strain: Not on [...] file Gets together: Not on file Attends nondenominational service: Not on file Active member of [...] Not Asked Social History Narrative Lives in [place] with , worked for the [employer] until 2010 Vaping/E-Cigarette Use Vaping/E-Cigarette Use Never User Vaping/E-Cigarette Substances Vaping/E-Cigarette Devices Past Surgical History: Procedure Laterality Date COLONOSCOPY, DIAGNOSTIC (RECTUM) 06/06/2010 normal colon exam repeat in 5 years COLONOSCOPY, DIAGNOSTIC (RECTUM) 06/27/2015 retained stool, repeat/COLONOSCOPY FLEXIBLE PROXIMAL DIAGNOSTIC performed by Aj Pruett DO atENDOSCOPY [facility] COLONOSCOPY, DIAGNOSTIC (RECTUM) 10/05/2023 hemorrhoids/biopsies show hyperplastic and inflammatory tissue/recall 5 years/COLONOSCOPY FLEXIBLE PROXIMAL DIAGNOSTIC performed by Aj Pruett DO at ENDOSCOPY [facility] EGD, FLEXIBLE, DIAGNOSTIC 01/22/2011 UPPER GI ENDOSCOPY DIAGNOSTIC performed by STACEY BENNETT at [facility] [place]GD, FLEXIBLE, DIAGNOSTIC 01/19/2014 portal hypertensive gastropathy, benign gastric polyp, repeat 2 yrs/done @ [facility] EGD, FLEXIBLE, DIAGNOSTIC 02/08/2016 normal bx, portal hypertensive gastropathy, repeat 1.5 yrs/[facility] EGD, FLEXIBLE, DIAGNOSTIC 08/25/2017 retained food, repeat 1 yr/ESOPHAGOGASTRODUODENOSCOPY (EGD), FLEXIBLE, TRANSORAL, DIAGNOSTIC performed by Aj Pruett DO at ENDOSCOPY [facility] EGD, FLEXIBLE, DIAGNOSTIC 12/15/2018 esophageal varices, gastritis, gastric polyp, repeat 1 yr/ESOPHAGOGASTRODUODENOSCOPY (EGD), FLEXIBLE, TRANSORAL, DIAGNOSTIC performed by Aj Pruett DO at ENDOSCOPY [facility] EGD, FLEXIBLE, DIAGNOSTIC 01/31/2020 fundic polyps, eso varices, portal hypertensive gastropathy, repeat 1 yr / ESOPHAGOGASTRODUODENOSCOPY (EGD), FLEXIBLE, TRANSORAL, DIAGNOSTIC performed by Aj Pruett DO at ENDOSCOPY [facility] EGD, FLEXIBLE, DIAGNOSTIC 10/09/2022 grade I esophageal varices/portal hypertension gastropathy/medium amount of food in stomach/ESOPHAGOGASTRODUODENOSCOPY (EGD), FLEXIBLE, TRANSORAL, DIAGNOSTIC performed by Aj Pruett DO at ENDOSCOPY [facility] EGD, FLEXIBLE, DIAGNOSTIC 10/05/2023 grade II esophageal varices/portal hypertensive gastropathy/multiple gastric polyps, resected and retrieved, clips placed/biopsies show fundic polyps/repeat 6 months/ESOPHAGOGASTRODUODENOSCOPY (EGD),FLEXIBLE, TRANSORAL, DIAGNOSTIC performed by Aj Pruett DO at ENDOSCOPY [facility] EGD, FLEXIBLE, W/BIOPSY 07/27/2012 small fundic stomach polyp/inflammation r/t reflux-repeat EGD in 1 yr EGD, W/ENDOSCOPIC US 01/22/2011 UPPER GI ENDOSCOPY ENDOSCOPIC ULTRASOUND performed by STACEY BENNETT at [facility] EVAL NEUROSTIM PULSE GEN, W/ REPROGRAM N/A 06/27/2022 NEUROSTIMULATOR PULSE GENERATOR/ TRANSMITTER, WITH INTRAOPERATIVE OR SUBSEQUENT PROGRAMMING performed by Rafia Small MD at OR [facility] EVAL NEUROSTIM PULSE GEN, W/ REPROGRAM N/A 08/22/2022 NEUROSTIMULATOR PULSE GENERATOR/ TRANSMITTER, WITH INTRAOPERATIVE OR SUBSEQUENT PROGRAMMING performed by Rafia Small MD at OR [facility] HYSTEROSCOPY,DIAGNOSTIC 07/16/2006 NovaSure endomentrial ablation IMPLANT EPIDURAL NEUROELECTRODES N/A 06/27/2022 PERCUTANEOUS IMPLANTATION NEUROSTIMULATOR EPIDURAL performed by Rafia Small MD at OR [facility] IMPLANT EPIDURAL NEUROELECTRODES N/A 08/22/2022 PERCUTANEOUS IMPLANTATION NEUROSTIMULATOR EPIDURAL performed by Rafia Small MD at OR [facility] IMPLANT SPINAL NEURORECEIVER N/A 08/22/2022 INSERTION OR REPLACEMENT SPINAL NEUROSTIMULATOR GENERATOR performed by Rafia Small MD [facility] INJECT DX/THER SUBSTANCE INTERLAMINAR LUMBAR/SACRAL W IMAGE GUIDE 04/13/2017 INJECTION SPINE LUMBAR OR SACRAL performed by Rene Kate DO at OR [facility] INJECT DX/THER SUBSTANCE INTERLAMINAR LUMBAR/SACRAL W IMAGE GUIDE 12/10/2017 INJECTION SPINE LUMBAR OR SACRAL performed by Rene Kate DO at OR [facility] INSER TUNN ACC DEV;5 YRS/OLDER 03/24/2013 03/24/2013 at [facility] Placement of A-Port central venous access catheter with port Dr. Dewitt IOF CT GUIDED NEEDLE BIOPSY 07/11/2010 CT GUIDED NEEDLE ASPIRATION BIOPSY performed by JAMILA SAWANT at [facility] LIGATE/CUT OVIDUCT(S) 07/1995 Family History Problem Relation Name Age of Onset Mental Disorder Mother Depression, [...] for suspectedopioid overdose. Seek immediate medical attention. [email or web address] 1 Each 3 Loratadine 10 MG Oral Tablet (Claritin) TAKE 1 TABLET BY MOUTH IN THE MORNING FOR ALLERGIES. (Patient taking differently: Take 1 Tablet by mouth in the morning. For allergies..) 90 Tablet 1 NovoLIN R ReliOn 100 UNIT/ML Injection Solution (insulin REGULAR human) INJECT UP TO 200 UNITS SUBCUTANEOSULY ONCE DAILY VIA PUMP 60 mL 0 Ondansetron 8 MG Oral Tablet Disintegrating (Zofran) PLACE 1 TABLET ON TONGUE AND DISSOLVE EVERY 8 HOURS NEEDED FOR NAUSEA 30 Tablet 0 Albuterol Sulfate HFA 108 (90 Base) MCG/ACT Inhalation Aerosol Solution INHALE 2 PUFFS BY MOUTH EVERY 6 HOURS NEEDED FOR SHORTNESS OF BREATH 18 g 5 Meclizine HCl 25 MG Oral Tablet (Antivert) Take 1 Tablet by mouth 3 times a day as needed for Dizziness. 30 Tablet 1 Atenolol 25 MG Oral Tablet (Tenormin) Take 1 Tablet by mouth in the morning and 1 Tablet before bedtime. Potassium Chloride Laura ER 20 MEQ Oral Tablet Extended Release Take 1 Tablet by mouth in the morning. 90 Tablet 3 Magnesium Oxide -Mg Supplement 400 (240 Mg) MG Oral Tablet (Mag-Ox) Take 1 Tablet by mouth in the morning. 90 Tablet 3 Atorvastatin Calcium 40 MG Oral Tablet (Lipitor) Take 1 Tablet by mouth at bedtime. 90 Tablet 3 Pantoprazole Sodium 40 MG Oral Tablet Delayed Release (Protonix) Take 1 Tablet by mouth in the morning. 90 Tablet 3 Pregabalin 100 MG Oral Capsule (Lyrica) Take 1 Capsule by mouth in the morning and 1 Capsule at noon and 1 Capsule before bedtime. 300 Capsule 1 hydrOXYzine HCl 25 MG Oral Tablet TAKE 1 TABLET BY MOUTH DURING DAY EVERY 4-6 HOURS NEEDED FOR ANXIETY & 2 TABLETS AT BEDTIME NEEDED FOR ANXIETY 450 Tablet 1 metFORMIN HCl 1000 MG Oral Tablet (Glucophage) Take 1 Tablet by mouth daily with breakfast. 90 Tablet 3 Escitalopram Oxalate 20 MG Oral Tablet (Lexapro) Take 1 Tablet by mouth in the morning. 90 Tablet 1 Baclofen 10 MG Oral Tablet (Lioresal) Take 1 Tablet by mouth in the morning and 1 Tablet at noon and 1 Tablet before bedtime. 90 Tablet 2 traZODone HCl 100 MG Oral Tablet (Desyrel) Take 1-2 Tablets by mouth at bedtime. 180 Tablet 1 Furosemide 40 MG Oral Tablet (Lasix) Take 1 Tablet by mouth every other day. 50 Tablet 1 Empagliflozin 10 MG Oral Tablet (Jardiance) Take 1 Tablet by mouth in the morning. 90 Tablet 3 Metoclopramide HCl 5 MG Oral Tablet (Reglan) Take 1 Tablet by mouth in the morning and 1 Tablet at noon and 1 Tablet in the evening. Take before meals. If needed for nausea. 300 Tablet 1 Eszopiclone 2 MG Oral Tablet (Lunesta) Take 1 Tablet by mouth at bedtime. 30 Tablet 2 Buprenorphine 5 MCG/HR Transdermal Patch Weekly (Butrans) Place 1 Patch topically on the skin once a week. 4 Patch 0 No current facility-administered medications for this visit. OBJECTIVE: BP 111/74 (BP Site: Left Arm, BP Position: Sitting, BP Cuff Size: Large) | Pulse 84 | Temp 36.7 C(98.1 F) (Tympanic) | Wt 105.2 kg (232 lb) | SpO2 92% | BMI 39.82 kg/m | BSA 2.18 m Constitutional: Patient [...] -WBC 8200, H&H of 12/38.7, Platelet count 634340 -Ferritin level --> 29 -Serum iron: 48, TIBC 374, iron saturation 13%. Blood workup done on 12/03/2022: -WBC 7900, H&H of 13.6/42.5, Platelet count 656785 -alpha-fetoprotein level --> 1.4 -BUN/Creat: 17/1.1, Calcium 9.1 -AST 60, ALT 25, alkaline phosphatase 186, total bilirubin 0.6 Blood workup done on 07/23/2023: - WBC 7500, H&H of 13.2/40, platelet count of 112,000 - Ferritin level --> 215 - Serum iron: 53, TIBC 289, and saturation 18% .- BUN/Creat: 14/1.3, Blood workup done on 03/10/2024: - Absolute reticulocyte count --> 90,000 -WBC 6100, H&H of 11.4/37, MCV 86, platelet count of 93,000 - Ferritin level --> 41 - Serum iron: 51, TIBC 3 and 74, iron saturation 14%. - BUN/Creat: 50 cell 1.3, AST 41, ALT 11, alkaline phosphatase 157, bilirubin level 0.5. - AFP --> 1.8 CT scan of the abdomen pelvis on 08/11/2023: 1. Mild edema near the distal sigmoid colon, this could represent early colitis, there is no wall thickening of the sigmoid colon. 2. Fatty infiltration. Nodular liver contour, correlate for cirrhosis. MRI of the liver on 08/05/2023: - Cirrhosis of the liver with portal hypertension, no suspicious finding noted in the liver for HCC. IMPRESSION: History of LORAINE Cirrhosis of liver [...] August of 2023, she was admitted at [facility] for upper GI bleed, hemoglobin level dropped down to around 11.2 g/dL, did not receive blood transfusion support, no coagulopathy, Ferritin level was around 74 at that time I reviewed her recent blood workup, Ferritin level has been staying on lower side on 30/5 - 40 range, hemoglobin slightly low. Recently she was admitted for low blood pressure, Anti-hypertensive medication has been discontinued. I would like to start IV iron the form of Venofer every 4 weekly and have port flush at the same time Will get CBCD Ferritin, iron profile every 4 weekly. Will see her in about [address] Sunil Bourgeois [...] documented in this encounter Nursing Notes * Kayla Haynes MED ASSIST - 03/15/2024 8:45 AM EDT Patient identifed by name and birthdate [...] it for you? ALREADY ACTIVE Filed Vitals: 03/15/24 0844 BP: 111/74 Pulse: 84 Temp: 36.7 C (98.1 F) TempSrc: Tympanic SpO2: 92% Weight: 105.2 kg (232 lb) Patient was instructed to not get up [...] 12:20 PM EDT Office Visit Family Practice [facility] [address] [place] [address] Scott Weldon MD [address] [place] [address] 4 1:00 PM EDT Hem/Onc Treatment Hematology/Onco logy Treatment, [place] [address] [place], [place] [phone] Nora, Chair 6 Hem Onc Scenery [address] [place] [address] 4 12:30 PM EDT Office Visit Ophthalmology, [facility] [address] [place] [address] Rolan Self, DO [address] [facility] [place] [address] 4 11:15 AM EDT Hospital Encounter ENDO [facility], Endoscopy Room [facility] [address] [place] [phone] Aj Pruett, DO [address] [place] [address] 4 11:15 AM EDT - 4 11:45 AM EDT Surgery ENDO [facility], Endoscopy Room [facility] [address] [place] [phone] Aj Pruett, DO [address] [place] [address] ESOPHAGOGASTRODUODENOSCOPY (EGD), FLEXIBLE, TRANSORAL, DIAGNOSTIC 4 10:00 AM EST Telemedicine Psychiatry [facility] [place] [address] [place] [phone] Nhi Fritz, MACHINE COREMAKER [address] [place] [address] 4 1:00 PM EST Office Visit Pharmacy, [place] [address] [place] [address] [place] [address] [place] [address] 4 11:00 AM EST Telemedicine Pharmacy, [facility] [address] [facility] [place] [address] [facility] [address] [facility] [place] [address] 4 1:40 PM EST Office Visit Nephrology, [facility] [address] [facility] [place] [address] Jonathan Mathew MD [address] [facility] [place] [address] 5 8:00 AM EST Office Visit Family Practice [facility] [address] [facility] [place] [address] Scott Weldon MD [facility] [place] [address] 5 1:20 PM EST Office Visit Hepatology, [facility] [address] [facility] [place] [address] Jazzy Chu DO [address] [facility] [place] [address] 5 10:30 AM EST Telemedicine Gastroenterolog y, [facility] [address] [facility] [place] [address] Adam Bradshaw CRNP [address] [place] [address] 5 1:45 PM EDT Office Visit Hematology/Onco logy [place] [place] [address] [place] [phone] Sunil Bourgeois MD [address] [place] [address] Scheduled Procedures Name Priority Associated Diagnoses Date/Ti [...] this encounter Medical Devices Implanted Type Area Mountain Or Glacier Guide Device Identifier Shelf Expiration Date Model / Serial / Lot Neurostimul Intellis Adaptiv - [id number] - [id number] Implanted:Qty: 1 on 08/22/2022 by Rafia Small MD at OR [facility] N/A: Spine Lumbar [employer] 06/21/2023 [id number] / [id number] / Description:battery Medtronic Lead Kit 60 Cm Implanted:Qty: 1 on 08/22/2022 by Rafia Small MD at OR [facility] N/A: Spine Lumbar 02/01/2026 [id number] / / [id number] Medtronic Lead Kit 60cm Implanted:Qty: 1 on 08/22/2022 by Rafia Small MD at OR [facility] N/A: Spine Lumbar 03/21/2026 [id number] / / [id number] Envelope Tyrx Med Antibacteril - [id number] Implanted:Qty: 1 on 08/22/2022 by Rafia Small MD at OR [facility] N/A: Spine Lumbar [employer] 03/10/2023 [id number] / / [id number] Hemostatic Clip Res 235cm - [id number] Implanted:Qty: 4 on 10/05/2023 by Aj Pruett DO at ENDOSCOPY [facility] : ENDOSCOPY 02/03/2026 [id number] / / Hemostatic Clip Res 235cm - [id number] Implanted:Qty: 1 on 10/05/2023 by Aj Pruett DO at ENDOSCOPY [facility] : ENDOSCOPY 02/02/2026 [id number] / / documented as of this encounter [...] Power of Attor narda? No Care Teams Broiler Supervisor Relationship Specialty Start Date End Date Scott Weldon MD [address] [place] [address] PCP - General Family Medicine 08/03/18 documented as of this encounter
--- OUTSIDE RECORDS SUMMARY | 2024-05-13 05:13 | External Medical Summary | Summary of Care ---
Author Name Unknown Organization [facility] Address [address] [facility] [place] [address] Phone [phone] Care Team Providers Care Systems Navigator Name Role Phone Scott Weldon MD Primary Care Provider + Reason for Visit * Reason Comments eRx-Medication Refill Encounter Details Date Type Department Care Team (Late st Contact Info) Description 03/10/2024 Refill Family Practice [facility] 132 [facility] [place] [address] Scott Weldon MD 132 [place] [address] Controlled substance agreement signed; Chronic bilateral low back pain with sciatica, sciatica laterality unspecified; Chronic pain syndrome Allergies Active Allergy Reactions Criticality Noted Date Comments Naproxen Sodium Bleeding High 11/29/2013 Pollen 12/03/2022 Seasonal Food (See Comments) Anaphylaxis High 04/20/2019 Hot peppers (oils) Kiwi Extract Anaphylaxis High 04/20/2019 documented as of this encounter (statuses as of 03/11/2024) Medications Medication Sig Dispensed Refills Start Date [...] Strip 5 02/17/2017 Active Insulin Infusion Pump (MINIMCITIA 630G INSULIN PUMP) KITIndications:Type 2 diabetes mellitus [...] suspected opioid overdose. Seek immediate medical attention. [email or web address] 1 Each 3 11/27/2022 Active [...] as of this encounter (statuses as of 03/11/2024) Active Problems Problem Noted Date Diagnosed Date [...] as of this encounter (statuses as of 03/11/2024) Resolved Problems Problem Noted Date Diagnosed Date [...] Overview: Per Obesity Taxonomy Coronary atherosclerosis of [place] coronary artery 09/15/2008 10/03/2008 Malaise and fatigue [...] as of this encounter (statuses as of 03/11/2024) Immunizations Name Administration Dates Next Due COVID-19 mRNA, LNP-s, No Pre serve, 2-Dose Series ([employer]) 11/08/2020,10/11/2020 HEP A - Hepatitis A (Adult > 18 yrs) 04/11/2011, 09/20/2010 Hepatitis B, 20+ yrs 07/05/2015 Pneumococcal Conjugate Vacci ne, 20-valent ([id number]) 03/13/2023 Pneumococcal Polysaccharide PPV23 (Pneumovax) 02/19/2018,03/09/2007 Seasonal [...] encounter Miscellaneous Notes * Telephone Encounter - Lelo Husain, [facility] - 03/11/2024 11:05 AM EDTRefused Prescriptions: Disp Refills Buprenorphine 5 MCG/HR Transdermal Patch W*4 Patch0 Sig: PLACE1 PATCH TOPICALLY ON THE SKIN ONCE A WEEK.Refused By: LELO HUSAIN for Refusal: Duplicate Request documented in this encounter Plan of Treatment Upcoming Encounters Date Type Department Care Team (Latest Contact Info) Description 4 11:15 AM EDT Imaging Radiology[address] [address] 4 8:45 AM EDT Office Visit Hematology/Onco logy [facility] [address] [place] [phone] Sunil Bourgeois MD [address] [place] [address] [place] [address] 4 9:30 AM EDT Nurse Only Hematology/Onco logy Treatment, [address] [place] [phone] Nora, Chair 2 Hem Onc [address] [place] [address] 4 12:20 PM EDT Office Visit Family Practice [facility] 132 [facility] [place] [address] Scott Weldon MD [address] [place] [address] 4 12:30 PM EDT Office Visit Ophthalmology, [facility] [address] [place] [address] Rolan Self, DO [facility] [place] [address] 4 11:15 AM EDT Hospital Encounter ENDO OSSC, Endoscopy Room [facility] [address] [place], [place] [phone] Aj Preutt, DO [address] [place], [place] [address] 4 11:15 AM EDT - 4 11:45 AM EDT Surgery ENDO OSSC, Endoscopy Room [facility] [address] [place], [place] [phone] Aj Pruett, DO [address] [place], [place] [address] ESOPHAGOGASTRODUODENOSCOPY (EGD), FLEXIBLE, TRANSORAL, DIAGNOSTIC 4 10:00 AM EST [facility]medicine [facility] [address] [place] [phone] Nhi Fritz, FREELANCE [address] REPORTER [address] [place] [address] 4 1:00 PM EST Office Visit Pharmacy, [address] [address] [place] [address] [place] [address] 4 11:00 AM EST Telemedicine Pharmacy, [facility] 132 [facility] [place] [address] [facility] 132 [facility] [place] [address] 4 1:40 PM EST Office Visit Nephrology, [facility] [address] [place] [address] Jonathan Mathew MD [address] [place] [address] 5 8:00 AM EST Office Visit Family Practice [facility] [address] [facility] [place] [address] Scott Weldon MD [address] [facility] [place] [address] 5 1:20 PM EST Office Visit Hepatology, [facility] [place] [address] Jazzy Chu DO [address] [place] [address] 5 10:30 AM EST Telemedicine Gastroenterolog y, [facility] 132 [facility] [place] [address] Adam Bradshaw CRNP [address] [place] [address] Scheduled Procedures Name Priority Associated Diagnoses Date/Ti [...] this encounter Medical Devices Implanted Type Area Patient Biller Device Identifier Shelf Expiration Date Model / Serial / Lot Neurostimul Intellis Adaptiv - [id number] - [id number] Implanted:Qty: 1 on 08/22/2022 by Rafia Small MD at OR [facility] N/A: Spine Lumbar [employer] 06/21/2023 [id number] / [id number] / Description:battery Medtronic Lead Kit 60 Cm Implanted:Qty: 1 on 08/22/2022 by Rafia Small MD at OR [facility] N/A: Spine Lumbar 02/01/2026 [id number] / / [id number] Medtronic Lead Kit 60cm Implanted:Qty: 1 on 08/22/2022 by Rafia Small MD at OR [facility] N/A: Spine Lumbar 03/21/2026 [id number] / / [id number] Envelope Tyrx Med Antibacteril - [id number] Implanted:Qty: 1 on 08/22/2022 by Rafia Small MD at OR [facility] N/A: Spine Lumbar [employer] 03/10/2023 [id number] / / [id number] Hemostatic Clip Res 235cm - [id number] Implanted:Qty: 4 on 10/05/2023 by Aj Pruett DO at ENDOSCOPY [facility] : ENDOSCOPY 02/03/2026 [id number] / / Hemostatic Clip Res 235cm - [id number] Implanted:Qty: 1 on 10/05/2023 by Aj Pruett DO at ENDOSCOPY [facility] : ENDOSCOPY 02/02/2026 [id number] / / documented as of this encounter [...] Power of Attor narda? No Care Teams Systems Navigator Relationship Specialty Start Date End Date Scott Weldon MD [address] [place] [address] PCP - General Family Medicine 08/03/18 documented as of this encounter
--- OUTSIDE RECORDS SUMMARY | 2024-05-13 05:13 | External Medical Summary | Summary of Care ---
Author Name Unknown Organization [facility] Address [address] [facility] [place] [address] Phone [phone] Care Team Providers Care Field Application Engineer Name Role Phone Scott Weldon MD Primary Care Provider + Reason for Visit * Reason Onset Date Comments Appointment 03/16/2024 [place] HEPATOBILIARY SYSTEM WITH PHARMACOLOGIC INTERVENTION Encounter Details Date Type Department Care Team (Late st Contact Info) Description 03/16/2024 Telephone Family Practice [facility] 132 [facility] [place] [address] Scott Weldon MD 132 [facility] [place] [address] Appointment ([place] HEPATOBILIARY SYSTEM WITH ... Allergies Active Allergy Reactions Criticality Noted Date Comments Naproxen Sodium Bleeding High 11/29/2013 Pollen 12/03/2022 Seasonal Food (See Comments) Anaphylaxis High 04/20/2019 Hot peppers (oils) Kiwi Extract Anaphylaxis High 04/20/2019 documented as of this encounter (statuses as of 03/17/2024) Medications Medication Sig Dispensed Refills Start Date [...] Strip 5 02/17/2017 Active Insulin Infusion Pump ([place] 630G INSULIN PUMP) KITIndications:Type 2 diabetes mellitus [...] suspected opioid overdose. Seek immediate medical attention. [email or web address] 1 Each 3 11/27/2022 Active [...] as of this encounter (statuses as of 03/17/2024) Active Problems Problem Noted Date Diagnosed Date [...] as of this encounter (statuses as of 03/17/2024) Resolved Problems Problem Noted Date Diagnosed Date [...] Per Obesity Taxonomy Coronary atherosclerosis of [place] coronary artery 09/15/2008 10/03/2008 Malaise and fatigue [...] as of this encounter (statuses as of 03/17/2024) Immunizations Name Administration Dates Next Due COVID-19 mRNA, LNP-s, No Pre serve, 2-Dose Series (Remote Assistant) 11/08/2020,10/11/2020 HEP A - Hepatitis A (Adult > 18 yrs) 04/11/2011, 09/20/2010 Hepatitis B, 20+ yrs 07/05/2015 Pneumococcal Conjugate Vacci ne, 20-valent ([id number]) 03/13/2023 Pneumococcal Polysaccharide PPV23 (Pneumovax) 02/19/2018,03/09/2007 Seasonal [...] Miscellaneous Notes * Telephone Encounter - Tamera Lay OSA - 03/17/2024 4:23 PM EDT PT IS SCHEDULED ON 05/12/24 * Telephone Encounter - Zainab Murcia OSA - 03/16/2024 1:12 PM EDT [place] HEPATOBILIARY SYSTEM WITH PHARMACOLOGIC INTERVENTION documented in this encounter Plan of Treatment Upcoming Encounters Date Type Department Care Team (Latest Contact Info) Description 4 1:00 PM EDT Hem/Onc Treatment Hematology/Onco logy Treatment, [place] [address] [place] [address] Nora, Chair 6 Hem Onc [address] [place] [address] 4 12:30 PM EDT Office Visit Ophthalmology, [facility] [address] [place] [address] Rolan Self, DO [address] [address] [place] [address] 4 11:15 AM EDT Hospital Encounter ENDO OSSC, Endoscopy Room [facility] [address] [place] [phone] Aj Pruett, DO [address] [place] [address] 4 11:15 AM EDT - 4 11:45 AM EDT Surgery ENDO OSSC, Endoscopy Room [facility] [address] [place] [phone] Aj Pruett, DO [address] [place] [address] ESOPHAGOGASTRODUODENOSCOPY (EGD), FLEXIBLE, TRANSORAL, DIAGNOSTIC 4 10:00 AM EST Telemedicine Psychiatry [place] [address] [place] [phone] Nhi Fritz, MARINE EQUIPMENT ENGINEER [address] [place] [address] 4 1:00 PM EST Office Visit Pharmacy, [place] [address] [place] [facility] [place] [place] [address] [place] [address] [place] [facility] [place] [address] 4 11:00 AM EST Telemedicine Pharmacy, [facility] 132 [facility] [address] [facility] 132 [facility] [place] [address] 4 8:00 AM EST Imaging [facility] 2nd Floor Cardiology, [place] 132 [facility] [place] [address] 4 1:40 PM EST Office Visit Nephrology, [facility] [address] [place] [address] Jonathan Mathew MD [address] [place] [address] 5 8:00 AM EST Office Visit Family Practice [facility] 132 [facility] [place] [address] Scott Weldon MD [address] [place] [address] 5 1:20 PM EST Office Visit Hepatology, [facility] 132 [facility] [place] [address] Jazzy Chu DO [address] [place] [address] 5 10:30 AM EST Telemedicine Gastroenterolog y, [facility] [address] [place] [address] Adam Bradshaw CRNP [address] [place] [address] 5 1:45 PM EDT Office [facility] [address] [place] [phone] Sunil Bourgeois MD 200 [facility] [place] [address] 5 12:20 PM EDT Office Visit Family Practice [facility] [address] [place] [address] Scott Weldon MD [address] [facility] [place] [address] Scheduled Procedures Name Priority Associated Diagnoses Date/Ti [...] this encounter Medical Devices Implanted Type Area Chromosomal Disorders Counselor Device Identifier Shelf Expiration Date Model / Serial / Lot Neurostimul Intellis Adaptiv - [id number] - [id number] Implanted:Qty: 1 on 08/22/2022 by Rafia Small MD at OR [facility] N/A: Spine Lumbar [employer] 06/21/2023 [id number] / [id number] / Description:battery Medtronic Lead Kit 60 Cm Implanted:Qty: 1 on 08/22/2022 by Rafia Small MD at OR [facility] N/A: Spine Lumbar 02/01/2026 [id number] / / [id number] Medtronic Lead Kit 60cm Implanted:Qty: 1 on 08/22/2022 by Rafia Small MD at OR [facility] N/A: Spine Lumbar 03/21/2026 [id number] / / [id number] Envelope Tyrx Med Antibacteril - [id number] Implanted:Qty: 1 on 08/22/2022 by Rafia Small MD at OR [facility] N/A: Spine Lumbar [employer] 03/10/2023 [id number] / / [id number] Hemostatic Clip Res 235cm - [id number] Implanted:Qty: 4 on 10/05/2023 by Aj Pruett DO at ENDOSCOPY [facility] : ENDOSCOPY 02/03/2026 [id number] / / Hemostatic Clip Res 235cm - [id number] Implanted:Qty: 1 on 10/05/2023 by Aj Pruett DO at ENDOSCOPY [facility] : ENDOSCOPY 02/02/2026 [id number] / / documented as of this encounter [...] Power of Attor narda? No Care Teams Field Application Engineer Relationship Specialty Start Date End Date Scott Weldon MD 132 [place] [address] PCP - General Family Medicine 08/03/18 documented as of this encounter
--- OUTSIDE RECORDS SUMMARY | 2024-05-13 05:13 | External Medical Summary | Summary of Care ---
Author Name Unknown Organization [facility] Address [address] [facility] [address] Phone [phone] Care Team Providers Care State Tested Nursing Assistant Name Role Phone Scott Weldon MD Primary Care Provider + Reason for Referral * Precert (Within 10 days (routine)) - Authorized Specialty Diagnoses / Procedures Referred By Contgeorgia t Referred To Contact Radiology Diagnoses Chronic RUQ pain Procedures NM HEPATOBILIARY SYSTEM WITH PHARMACOLOGIC INTERVENTION Scott Weldon MD [address] [place] [address] Referral ID Status Reason Start Date Expiration Date V isits Requested Visits Authorized [id number] Authorized 03/16/2024 999 999 Reason for Visit * Reason Comments Re-Check Encounter Details Date Type Department Care Team (Latest Contact Info) Description 03/16/2024 12:20 PM EDT Telemedicine Family Practice [facility] [address] [place] [address] Scott Weldon MD [address] [place] [address] Malaise and fatigue*; Diabetic polyneuropathy associated with type 2 diabetes mellitus (HCC); Chronic RUQ pain; Iron deficiency anemia, unspecified iron deficiency anemia type; Cirrhosis of liver without ascites, unspecified hepatic cirrhosis type (HCC); Type II diabetes mellitus with neurological manifestations (HCC); Chronic low back pain with sciatica, sciatica laterality unspecified, unspecified back pain laterality Allergies Active Allergy Reactions Criticality Noted Date Comments Naproxen Sodium Bleeding High 11/29/2013 Pollen 12/03/2022 Seasonal Food (See Comments) Anaphylaxis High 04/20/2019 Hot peppers (oils) Kiwi Extract Anaphylaxis High 04/20/2019 documented as of this encounter (statuses as of 03/16/2024) Medications Medication Sig Dispensed Refills Start Date End Date Status ONETOUCH ULTRASOFT LANCETS MISCIndications:DM type 2, not at goal ([facility]) check FS 6 times daily 4 Box [...] Strip 5 02/17/2017 Active Insulin Infusion Pump (MINIMYappn 630G INSULIN PUMP) KITIndications:Type 2 diabetes mellitus [...] suspected opioid overdose. Seek immediate medical attention. [email or web address] 1 Each 3 11/27/2022 Active [...] yrs 07/05/2015 Pneumococcal Conjugate Vacci ne, 20-valent ([id number]) 03/13/2023 Pneumococcal Polysaccharide PPV23 (Pneumovax) 02/19/2018,03/09/2007 Seasonal [...] Progress Notes * Scott Weldon MD - 03/16/2024 12:48 PM EDT Images from the original note were not included. Patient location: HOME. I was in a hospital or clinic location. After connecting through [employer],patient was verified with two unique identifiers. Patient (or authorized legal shipping services sales representative) was then informed that this was a Telemedicine visit and being conducted confidentially over secure lines. Methods to assure confidentiality were taken. Patient acknowledged consent and understanding of pr ivacy and security of the Telemedicine visit. The patient agreed to participate. Subjective Carmen Tyson is a 53 year old female presenting for Re-Check History of Present Illness The patient, with a history of liver disease, presents with general malaise and right upper quadrant pain. She reports feeling 'wiped out' and experiencing body aches, including skin sensitivity. These symptoms have been ongoing since a hospital admission in August, with fluctuating severity. The patient notes that cold weather exacerbates her discomfort. The patient also reports right upper quadrant pain, described as 'stabbing' or 'throbbing.' This pain is distinct from her usual right-sided discomfort and is exacerbated by the consumption of fatty foods, such as Mauritanian fries. In addition to these symptoms, the patient is scheduled to begin iron infusions due to low iron levels. Has repeat scope scheduled Objective not currently . Physical Exam General: alert, healthy, and no distress Results RADIOLOGY Liver ultrasound: No evidence of hepatic malignancy; gallbladder wall slightly thickened; no cholelithiasis (03/14/2024) Assessment and Plan Assessment & Plan Chronic Fatigue Persistent fatigue since hospitalization in August. No clear etiology identified. Does have low iron. F/u IV iron as sched -Continue supportive care and monitoring. Gallbladder Dysfunction Right upper quadrant pain, particularly after fatty meals. Recent ultrasound showed thickened gallbladder wall, but no gallstones. -Order HIDA scan to assess for gallbladder dysfunction. -Discussed potential cholecystectomy if HIDA scan shows gallbladder dysfunction. Iron Deficiency Anemia Scheduled for iron infusions due to persistent low iron levels. -Start iron infusions on 03/21/2024, Mobility Issues Difficulty walking without support, particularly in winter months. Hx sciatica. Plans to walk at mall in winter -Order rollator (wheeled walker with seat and brakes) through [employer]. Follow-up -Continue with scheduled appointments in June and summer. -Check labs regularly to monitor complete blood count, kidney function, and A1C. -Continue monitoring liver function with new manufacturing controller in June. Malaise and fatigue (Primary) Diabetic polyneuropathy associated with type 2 diabetes mellitus (HCC) Chronic RUQ pain - NM HEPATOBILIARY SYSTEM WITH PHARMACOLOGIC INTERVENTION Iron deficiency anemia, unspecified iron deficiency anemia type Cirrhosis of liver without ascites, unspecified hepatic cirrhosis type (HCC) Type II diabetes mellitus with neurological manifestations (HCC) Chronic low back pain with sciatica, sciatica laterality unspecified, unspecified back pain laterality - DURABLE MEDICAL EQUIPMENT Wrap-Up Follow Up: Return in about 9 months (around 12/14/2024) for Return with Physician. | For: Return withPhysician | Check-out note: Keep Nabil. Time: I spent a total of 20-29 minutes (exact time 23 mins) on the date of service in preparation, delivery, and documentation of the care provided to Carmen Tyson excluding any time spent in the performance of separately billed services. Text in this note was generated using an ambient documentation service. I discussed the use of a device to record and summarize our discussion today. All persons present during the encounter consented to its use. Telemedicine: Patient location: HOME. I was in a hospital or clinic location. After connecting through televideo,patient was verified with two unique identifiers. Patient (or authorized legal shipping services sales representative) was then informed that this was a Telemedicine visit and being conducted confidentially over secure lines. Methods to assure confidentiality were taken. Patient acknowledged consent and understanding of pr ivacy and security of the Telemedicine visit. The patient agreed to participate. documented in this encounter Plan of Treatment Upcoming Encounters Date Type Department Care Team (Latest Contact Info) Description 4 1:00 PM EDT Hem/Onc Treatment Hematology/Onco logy Treatment, [place] [address] [place] [phone] Nora, Chair 6 Hem Onc [place] [address] [place] [address] 4 12:30 PM EDT Office Visit Ophthalmology, [facility] [place] [address] [place] [address] Rolan Self, DO [address] [place] [address] 4 11:15 AM EDT Hospital Encounter ENDO [facility], Endoscopy Room [facility] [address] [place] [place] [phone] Aj Pruett, DO [address] [place] [address] 4 11:15 AM EDT - 4 11:45 AM EDT Surgery ENDO [facility], Endoscopy Room [facility] [address] [place] [phone] Aj Pruett, DO [address] [place] [address] ESOPHAGOGASTRODUODENOSCOPY (EGD), FLEXIBLE, TRANSORAL, DIAGNOSTIC 4 10:00 AM EST Telemedicine Psychiatry [place] [address] [place] [phone] Nhi Fritz, NOEL [address] [place] [address] 4 1:00 PM EST Office Visit Pharmacy[address] [address] [address] [address] 4 11:00 AM EST Telemedicine Pharmacy, [facility] [place] [address] [facility] [address] [facility] [place] [address] 4 1:40 PM EST Office Visit Nephrology, [facility] [address] [place], [place] [address] Jonathan Mathew MD [address] [place], [place] [address] 5 8:00 AM EST Office Visit Family Practice [facility] [address] [facility] [place], [place] [address] Scott Weldon MD [address] [place] [address] 5 1:20 PM EST Office Visit Hepatology, [facility] 132 [facility] [place], [place] [address] Jazzy Chu DO [address] [place] [address] 5 10:30 AM EST Telemedicine Gastroenterolog y, [facility] 132 [facility] [place] [address] Adam Bradshaw CRNP [address] [place] [address] 5 1:45 PM EDT Office Visit Hematology/Onco logy [facility] [address] [place], [place] [phone] Sunil Bourgeois MD 200 [place] [address] Scheduled Orders Name Type Priority Associated Diagnoses Orde r Schedule NM HEPATOBILIARY SYSTEM WITH PHARMACOLOGIC INTERVENTION Medical Imaging Routine Chronic RUQ pain Ordered: 03/16/2024 Scheduled Procedures Name Priority Associated Diagnoses Date/Ti [...] 07/23/2023, 10/0 09/2021, 12/12/2019, Additional history exists DTap/Tdap Vaccines [...] encounter Medical Devices Implanted Type Area Manager House Device Identifier Shelf Expiration Date Model / Serial / Lot Neurostimul Intellis Adaptiv - [id number] - [id number] Implanted:Qty: 1 on 08/22/2022 by Rafia Small MD at OR [facility] N/A: Spine Lumbar [employer] 06/21/2023 [id number] / [id number] / Description:battery Medtronic Lead Kit 60 Cm Implanted:Qty: 1 on 08/22/2022 by Rafia Small MD at OR [facility] N/A: Spine Lumbar 02/01/2026 [id number] / / [id number] Medtronic Lead Kit 60cm Implanted:Qty: 1 on 08/22/2022 by Rafia Small MD at OR [facility] N/A: Spine Lumbar 03/21/2026 [id number] / / [id number] Envelope Tyrx Med Antibacteril - [id number] Implanted:Qty: 1 on 08/22/2022 by Rafia Small MD at OR [facility] N/A: Spine Lumbar [employer] 03/10/2023 [id number] / / [id number] Hemostatic Clip Res 235cm - [id number] Implanted:Qty: 4 on 10/05/2023 by Aj Pruett, DO at ENDOSCOPY [facility] ENDOSCOPY 02/03/2026 [id number] / / Hemostatic Clip Res 235cm - [id number] Implanted:Qty: 1 on 10/05/2023 by Aj Pruett, DO at ENDOSCOPY [facility] : ENDOSCOPY 02/02/2026 [id number] / / documented as of this encounter Visit Diagnoses Diagnosis Malaise and fatigue- Primary Other malaise and fatigue Diabetic polyneuropathy associated with type 2 diabetes mellitus (HCC) Chronic RUQ pain Abdominal pain, right upper quadrant Iron deficiency anemia, unspecified iron deficiency anemia type Cirrhosis of liver without ascites, unspecified hepatic cirrhosis type (HCC) Type II diabetes mellitus with neurological manifestations (HCC) Type II or unspecified type diabetes mellitus with neurological manifestations, not stated as uncontrolled Chronic low back pain with sciatica, sciatica laterality unspecified, unspecified back pain laterality Portal hypertensive gastropathy (HCC) Other specified disorder [...] Power of Attor narda? No Care Teams State Tested Nursing Assistant Relationship Specialty Start Date End Date Scott Weldon MD [address] [place] [address] PCP - General Family Medicine 08/03/18 documented as of this encounter
--- OUTSIDE RECORDS SUMMARY | 2024-05-13 05:14 | External Medical Summary ---
Author Name Unknown Address Unknown Organization [id number]:[facility] [place] [address] [place] [address] Laboratory Report Ordering Provider Test Date Status LUIS ANTONIO LEIVA 03/10/2024 14:08:06 Final Observation Date Value Abnormality Reference (Units ) Status Iron 03/10/2024 14:08:06 51 33-151 (ug/dL) Final Iron-binding capacity 03/10/2024 14:08:06 374 250-425 (ug/dL) Final Transferrin Sat % 03/10/2024 14:08:06 14 Below low normal 15-55 (%) Final Performing Location [facility] [place] [address] [place] [address]
--- OUTSIDE RECORDS SUMMARY | 2024-05-13 05:14 | External Medical Summary | Summary of Care ---
Author Name Unknown Organization [facility] Address [address] [facility] [place] [address] Phone [phone] Care Team Providers Care Car Wiper Name Role Phone Scott Weldon MD Primary Care Provider + Encounter Details Date Type Department Care Team (Late st Contact Info) Description 10/29/2023 Orders Only Hematology/Oncology [facility] [place] 200 [facility] [place] [address] Sunil Bourgeois MD 200 [facility] [place] [address] Allergies Active Allergy Reactions Criticality Noted Date Comments Naproxen Sodium Bleeding High 11/29/2013 Pollen 12/03/2022 Seasonal Food (See Comments) Anaphylaxis High 04/20/2019 Hot peppers (oils) Kiwi Extract Anaphylaxis High 04/20/2019 documented as of this encounter (statuses as of 03/10/2024) Medications Medication Sig Dispensed Refills Start Date [...] Strip 5 02/17/2017 Active Insulin Infusion Pump (MINIMLittle Bird 630G INSULIN PUMP) KITIndications:Type 2 diabetes mellitus with hemoglobin A1c goal of less than 8.0% ([facility]) Use as directed. 07/30/2017 Active CPAP every [...] suspected opioid overdose. Seek immediate medical attention. [email or web address]?[email or web address] 1 Each 3 11/27/2022 Active [...] NEEDED FOR NAUSEA 30 Tablet 08/10/2023 Active documented as of this encounter (statuses as of 03/10/2024) Active Problems Problem Noted Date Diagnosed Date [...] as of this encounter (statuses as of 03/10/2024) Resolved Problems Problem Noted Date Diagnosed Date [...] Overview: Per Obesity Taxonomy Coronary atherosclerosis of agdaagux coronary artery 09/15/2008 10/03/2008 Malaise and fatigue [...] as of this encounter (statuses as of 03/10/2024) Immunizations Name Administration Dates Next Due COVID-19 mRNA, LNP-s, No Pre serve, 2-Dose Series ([email or web address].ru) 11/08/2020,10/11/2020 HEP A - Hepatitis A (Adult > 18 yrs) 04/11/2011, 09/20/2010 Hepatitis B, 20+ yrs 07/05/2015 Pneumococcal Conjugate Vacci ne, 20-valent (Nehoenh69) 03/13/2023 Pneumococcal Polysaccharide PPV23 (Pneumovax) 02/19/2018,03/09/2007 Seasonal [...] No 10/07/2023 Does the household have a [facility] source of income? (Household - for ages [...] Contact Info) Description 4 1:00 PM EDT Office Visit Pharmacy, [place] [address] [place] [address] [place] [facility] [address] [place] [address] 4 11:15 AM EDT Imaging Radiology, [place] [address] [place] [address] 4 8:45 AM EDT Office Visit Hematology/Onco logy [facility] 200 [facility] [place] [address] Sunil Bourgeois MD 200 [facility] [place] [address] 4 9:30 AM EDT Nurse Only Hematology/[facility] [place] [address] [facility] [address] [place] [phone] Nora, Chair 2 Hem Onc [address] [place] [address] 4 12:20 PM EDT Office Visit [facility] [address] [place] [address] Scott Weldon MD [address] [place] [address] 4 12:30 PM EDT Office Visit Ophthalmology, [facility] [address] [place] [address] Rolan Self, DO [address] [place] [address] 4 11:15 AM EDT Hospital Encounter ENDO [facility], Endoscopy Room [facility] [address] [place] [phone] Aj Pruett, DO [address] [place] [address] 4 11:15 AM EDT - 4 11:45 AM EDT Surgery ENDO [facility], Endoscopy Room [facility] [address] [place] [phone] Aj Pruett, DO [address] [place] [address] ESOPHAGOGASTRODUODENOSCOPY (EGD), FLEXIBLE, TRANSORAL, DIAGNOSTIC 4 10:00 AM EST Telemedicine Psychiatry [address], [place] 9 [facility] [place] [phone] Nhi Fritz, SEPH[employer]A [employer] CONSULTANT [address] [place] [address] 4 11:00 AM EST Telemedicine Pharmacy, [facility] [address] [place] [address] [facility] [address] [place] [address] 4 1:40 PM EST Office Visit Nephrology, [place] [address] [place], [place] [address] Jonathan Mathew MD [address] [place], [place] [address] 5 8:00 AM EST Office Visit Family Practice [facility] [address] [facility] [place] [address] Scott Weldon MD [address] [place] [address] 5 1:20 PM EST Office Visit Hepatology, [facility] [address] [place] [address] Jazzy Chu DO [address] [place] [address] 5 10:30 AM EST Telemedicine Gastroenterolog y, [facility] [address] [place] [address] Adam Bradshaw CRNP [address] [place] [address] Scheduled Procedures Name Priority Associated Diagnoses Date/Ti [...] 09/08/2023, 09/2022, 06/14/2020, Additional history exists GFR 02/10/2025 02/11/2024, 01/07, 01/28/2024, Additional history exists Pap Smear 09/07/2026 09/08/2023, [...] this encounter Medical Devices Implanted Type Area Carding Machine Operator Device Identifier Shelf Expiration Date Model / Serial / Lot Neurostimul Intellis Adaptiv - [id number] - [id number] Implanted:Qty: 1 on 08/22/2022 by Rafia Small MD at OR [facility] N/A: Spine Lumbar [employer] 06/21/2023 [id number] / [id number] / Description:battery Medtronic Lead Kit 60 Cm Implanted:Qty: 1 on 08/22/2022 by Rafia Small MD at OR [facility] N/A: Spine Lumbar 02/01/2026 [id number] / / [id number] Medtronic Lead Kit 60cm Implanted:Qty: 1 on 08/22/2022 by Rafia Small MD at OR [facility] N/A: Spine Lumbar 03/21/2026 [id number] / / [id number] Envelope Tyrx Med Antibacteril - [id number] Implanted:Qty: 1 on 08/22/2022 by Rafia Small MD at OR [facility] N/A: Spine Lumbar [employer] 03/10/2023 [id number] / / [id number] Hemostatic Clip Res 235cm - [id number] Implanted:Qty: 4 on 10/05/2023 by Aj Pruett DO at END[facility] : ENDOSCOPY 02/03/2026 [id number] / / Hemostatic Clip Res 235cm - [id number] Implanted:Qty: 1 on 10/05/2023 by Aj Pruett DO at ENDOSCOPY [facility] : END[facility] 02/02/2026 [id number] / / documented as of this encounter [...] Power of Attor narda? No Care Teams Car Wiper Relationship Specialty Start Date End Date Scott Weldon MD [address] [place] [address] PCP - General Family Medicine 08/03/18 documented as of this encounter
--- OUTSIDE RECORDS SUMMARY | 2024-05-13 05:14 | External Medical Summary ---
Author Name Unknown Address Unknown Organization K01:[facility] [place] [facility] [place] [address] Laboratory Report Ordering Provider Test Date Status JAN RIBEIRO 03/10/2024 14:08:06 Final Observation Date Value Abnormality Reference (Units ) Status Alpha-Fetoprotein 03/10/2024 14:08:06 1.8 0. 0-8.3 (ng/mL) Final Performing Location [facility] [place] [facility] [place] [address]
--- OUTSIDE RECORDS SUMMARY | 2024-05-13 05:14 | External Medical Summary ---
Author Name Unknown Address Unknown Organization K01:[facility] [place] [address] [facility]. [place] [address] Laboratory Report Ordering Provider Test Date Status JAN RIBEIRO 03/10/2024 14:08:06 Final Observation Date Value Abnormality Reference (Units ) Status BUN 03/10/2024 14:08:06 15 6-20 (mg/dL) Final Creatinine 03/10/2024 14:08:06 1.3 Above high normal 0.5-1.0 (mg/dL) Final Glomerular filtration rate/1.73 sq M.predicted [Volume Rate/Area] in Serum, Plasma or Blood by Creatinine-based formula (CKD-EPI) 03/10/2024 14:08:06 51 Below low normal >=60 (mL/min) Final eGFR is calculated based on the CKD-EPI 2020 equation. Sodium 03/10/2024 14:08:06 141 135-146 (m mol/L) Final Potassium 03/10/2024 14:08:06 4.5 3.5-5.1 (m mol/L) Final Cl 03/10/2024 14:08:06 101 98-107 (mm ol/L) Final CO2 03/10/2024 14:08:06 30 22-32 (mmo l/L) Final Anion gap 03/10/2024 14:08:06 10 7-15 (mmol /L) Final Glucose 03/10/2024 14:08:06 143 Above high normal 70 -120 (mg/dL) Final Albumin 03/10/2024 14:08:06 4.1 3.8-5.0 (g /dL) Final AST (Aspartate aminotransferase) 03/10/2024 14:08:06 41 Above high normal 10-35 (U/L) Final Alk Phos 03/10/2024 14:08:06 157 Above high normal 35 -130 (U/L) Final Bilirubin, Total 03/10/2024 14:08:06 0.5 <=1 .2 (mg/dL) Final Calcium 03/10/2024 14:08:06 9.2 8.4-10.2 ( mg/dL) Final Protein 03/10/2024 14:08:06 6.9 6.0-8.3 (g /dL) Final ALT (Alanine aminotransferase) 03/10/2024 14:08:06 11 10-35 (U/L) Jaswinder burns Performing Location [facility] [place] - [address] [facility] [place] [address]
--- OUTSIDE RECORDS SUMMARY | 2024-05-13 05:14 | External Medical Summary | Summary of Care ---
Author Name Unknown Organization [facility] Address [address] [facility] [place] [address] Phone [phone] Care Team Providers Care Warp Knitter Name Role Phone Scott Weldon MD Primary Care Provider + Reason for Visit * Reason Comments Dosage Adjustment In Person (Anticoag Cl inic) Diabetes Management Encounter Details Date Type Department Care Team (Late st Contact Info) Description 03/10/2024 1:00 PM EDT Office Visit Pharmacy, [place] [address] [place] [address] [facility] [address] [place] [address] Type 2 diabetes mellitus with hemoglobin A1c goal of less than 8.0% ([facility])* Allergies Active Allergy Reactions Criticality Noted Date Comments Naproxen Sodium Bleeding High 11/29/2013 Pollen 12/03/2022 Seasonal Food (See Comments) Anaphylaxis High 04/20/2019 Hot peppers (oils) Kiwi Extract Anaphylaxis High 04/20/2019 documented as of this encounter (statuses as of 03/10/2024) Medications Medication Sig Dispensed Refills Start Date End Date Status ONETOUCH ULTRASOFT LANCETS MISCIndications:DM type 2, not at goal ([facility]) check FS 6 times daily [...] Strip 5 02/17/2017 Active Insulin Infusion Pump (MINIMRelcy 630G INSULIN PUMP) KITIndications:Type 2 diabetes mellitus [...] Overview: Per Obesity Taxonomy Coronary atherosclerosis of [place] coronary artery 09/15/2008 10/03/2008 Malaise and fatigue [...] mRNA, LNP-s, No Pre serve, 2-Dose Series (HackHands) 11/08/2020,10/11/2020 HEP A - Hepatitis A (Adult > 18 yrs) 04/11/2011, 09/20/2010 Hepatitis B, 20+ yrs 07/05/2015 Pneumococcal Conjugate Vacci ne, 20-valent (Kdxucly85) 03/13/2023 Pneumococcal Polysaccharide PPV23 (Pneumovax) 02/19/2018,03/09/2007 Seasonal [...] as of this encounter Progress Notes * Guadalupe Robbins, [facility] - 03/10/2024 1:10 PM EDT Images from the original note were not included. Medication Therapy Disease Management Clinic - Diabetes Management Progress Note Carmen Tyson, identified by name and date of , is a 53 year old female being seen for diabetes management/education. Patient presents for return diabetic visit. DIABETES: Current diabetic medications: Metformin 1000mg once a day Jardiance 10 mg once daily - Not taking at the moment; Applying for coverage eGFR 37 mL/min as of 01/28/24 Medtronic TubettG - Koduco ([id number]) Infusion Set: Quick Set Insulin: Novolin R Basal Rate (decreased at all times of the day) 12a-8a 2.30 u/hr 8a-1pm 3.6 u/hr 1pm - 3 pm 3.5 u/hr 3p - 12a 3.6 u/hr Bolus: using bolus wizard Carb ratio 1:4 Bolus wizard: on and using ISF: 1:10 Blood Glucose Goals: 100-140 Active Insulin Time: 2 hours Medication Injection Site: Abdomen Lifestyle: Diet: unchanged Glucose Review/SMBG: Readings obtained from patient device Hypoglycemia: Does your blood sugar go below 70 mg/dL? Yes, Patient states that it is not bothersome for her. Hyperglycemia symptoms present: none Recent Labs Units 11/13/23 1007 07/23/23 1200 02/18/23 1326 HEMOGLOBIN A1C - [facility] % 6.3* 5.8* 5.7* Recent Labs Units 02/11/24 1119 02/03/24 0000 01/28/24 1232 ESTIMATED GLOMERULAR FILTRATION RATE - [facility] mL/min 38* 41.2 37* CREATININE - [facility] mg/dL 1.6* 1.45* 1.7* HYPERTENSION: Patient on ACEi/ARB: no, Not needed BP Readings from Last 3 Encounters: 02/12/24 100/68 01/28/24 106/62 11/25/23 104/72 Blood pressure at goal: yes HYPERLIPIDEMIA: Recent Labs Units 07/23/23 1200 03/11/22 1329 LDL CHOLESTEROL (CALCULATED) - [facility] mg/dL 54 80 Does patient have clinical ASCVD? No, is patient LDL less than 70mg/dL? Yes HEALTH MAINTENANCE REVIEW: Health Maintenance Due Topic Date Due Diabetic Eye Exam 01/16/2023 Influenza Vaccine (FLU shot) (1) 02/07/2024 COVID-19 Vaccine ( season) 2024 Diabetic Foot Exam 03/13/2024 ASSESSMENT & PLAN: ICD-10-CM 1. Type 2 diabetes mellitus with hemoglobin A1c goal of less than 8.0% ([facility]) E11.9 Considerations: - activity limited by chronic low back pain - obtaining ozempic and novolin R via PAP - prefers to use local pharmacy instead of [facility] - RENAL function - Dexcom supplied by [facility] Medical BG Readings - Blood sugars uncontrolled. Patient it having consistent lows in the hospital aides and assistants teacher andsometimes in the early after noon if she does not eat a lot. When assessing if the patient correctsthe morning lows she sometimes does but does tend to fall back asleep since she does not feel much different. Counseled the patient to treat true lows and to double check with a finger stick. Medications - Reviewed current regimen, patient is adherent to regimen. Patient was taken off of ozempic due to concern for potential pancreatitis with increased lipase. Jardiance is also too expensive for the patient and the reimbursement team is working on payment options so the patient is not currently taking right now. Due to the low blood glucose readings in the hospital aides and assistants teacher counseled the patient on decreasing the basal rate at this time. Patient was eventually agreeable and it was decreased to 2 units/hr. A preset bolus dose was created for the patient to start taking with her chocolate milk that she drinks in the morning. Patient is familiar with this, as she has done this in the past. Pre-set bolus was set to 10 units. Diet, Exercise, Lifestyle - No significant lifestyle changes since last visit. The patient is goingthrough a lot at this time in terms of personal events and stressors. Patient is agreeable to SMBG daily with Dexcom Patient aware to contact clinic if any hypoglycemia before next visit. MEDICATION CHANGES: yes Diabetic Medications: Metformin 1000mg once a day Jardiance 10 mg once daily - Applying for coverage eGFR 37 mL/min as of 01/28/24 Medtronic TubettG - Koduco ([id number]) Infusion Set: Quick Set Insulin: Novolin R Basal Rate (decreased) 12a-8a 2.0 u/hr 8a-1pm 3.6 u/hr 1pm - 3 pm 3.5 u/hr 3p - 12a 3.6 u/hr Bolus: using bolus wizard Carb ratio 1:4 Bolus wizard: on and using ISF: 1:10 Blood Glucose Goals: 100-140 Active Insulin Time: 2 hours HEALTH MAINTENANCE INTERVENTIONS: Labs: Up to Date Immunizations: Due for Flu Foot Exam: Up to Date Eye Exam: Up to Date Annual Wellness Visit: N/A FOLLOW UP: Return to clinic in 6 weeks 04/21/2024 I spent a total of 30-39 minutes (exact time 32 mins) on the date of service in preparation, delivery, and documentation of the care provided to Carmen Tyson excluding any time spent in the performance of separately billed services. Guadalupe Robbins [facility] Clinical Pharmacist - Verification Lead Medication Therapy Management Clinic 03/10/2024, 1:11 PM documented in this encounter Plan of Treatment Upcoming Encounters Date Type Department Care Team (Latest Contact Info) Description 4 11:15 AM EDT Imaging [address] [address] 4 8:45 AM EDT Office Visit Hematology/Onco logy [address] [place] [phone] Sunil Bourgeois MD [address] [place] [address] [place] [address] 4 9:30 AM EDT Nurse Only Hematology/[address] [phone] Nora, Chair 2 Hem Onc [address] [place] [address] 4 12:20 PM EDT Office Visit Family Practice Health system [address] [place] [address] Scott Weldon MD [address] [place] [address] 4 12:30 PM EDT Office Visit Ophthalmology, Health system [address] [facility] [place], [place] [address] Rolan Self, DO [address] [place] [address] 4 11:15 AM EDT Hospital Encounter ENDO [facility], Endoscopy Room [facility] [address] [place], [place] [phone] Aj Pruett, DO [address] [place] [address] 4 11:15 AM EDT - 4 11:45 AM EDT Surgery ENDO [facility], Endoscopy Room [facility] [address] [place] [phone] Aj Pruett, DO [address] [place] [address] ESOPHAGOGASTRODUODENOSCOPY (EGD), FLEXIBLE, TRANSORAL, DIAGNOSTIC 4 10:00 AM EST Telemedicine Psychiatry [facility] [address] [place] [address] Nhi Fritz, DIRECTOR OF CONSTRUCTION [address] [place] [address] 4 1:00 PM EST Office Visit Pharmacy, [address] [address] 4 11:00 AM EST Telemedicine Pharmacy, Health system [address] [employer] [place] [address] [facility] 132 [facility] [place] [address] 4 1:40 PM EST Office Visit Nephrology, [facility] [address] [place] [address] Jonathan Mathew MD 200 [facility] [place] [address] 5 8:00 AM EST Office Visit Family Practice Health system [address] [facility] [place] [address] cSott Weldon MD [address] [facility] [place] [address] 5 1:20 PM EST Office Visit [facility]atology, [facility] [place] [address] Jazzy Chu DO [address] [place] [address] 5 10:30 AM EST Telemedicine Gastroenterolog y, Health [facility] [place] [address] Adam Bradshaw CRNP [address] [place] [address] Scheduled Procedures Name Priority Associated Diagnoses Date/Ti [...] encounter Medical Devices Implanted Type Area Research Support Specialist Device Identifier Shelf Expiration Date Model / Serial / Lot Neurostimul Intellis Adaptiv - [id number] - [id number] Implanted:Qty: 1 on 08/22/2022 by Rafia Small MD at OR [facility] N/A: Spine Lumbar [employer] 06/21/2023 [id number] / [id number] / Description:battery Medtronic Lead Kit 60 Cm Implanted:Qty: 1 on 08/22/2022 by Rafia Small MD at OR [facility] N/A: Spine Lumbar 02/01/2026 [id number] / / [id number] Medtronic Lead Kit 60cm Implanted:Qty: 1 on 08/22/2022 by Rafia Small MD at OR [facility] N/A: Spine Lumbar 03/21/2026 [id number] / / [id number] Envelope Tyrx Med Antibacteril - [id number] Implanted:Qty: 1 on 08/22/2022 by Rafia Small MD at OR [facility] N/A: Spine Lumbar [employer] 03/10/2023 [id number] / / [id number] Hemostatic Clip Res 235cm - [id number] Implanted:Qty: 4 on 10/05/2023 by Aj Pruett DO at ENDOSCOPY [facility] : ENDOSCOPY 02/03/2026 [id number] / / Hemostatic Clip Res 235cm - [id number] Implanted:Qty: 1 on 10/05/2023 by Aj Pruett DO at ENDOSCOPY [facility] : ENDOSCOPY 02/02/2026 [id number] / / documented as of this encounter [...] Power of Attor narda? No Care Teams Warp Knitter Relationship Specialty Start Date End Date Scott Weldon MD [address] [place] [address] PCP - General Family Medicine 08/03/18 documented as of this encounter
--- OUTSIDE RECORDS SUMMARY | 2024-05-13 05:14 | External Medical Summary ---
Author Name Unknown Address Unknown Organization K01:[facility] [place] [address] [place] [address] Laboratory Report Ordering Provider Test Date Status LUIS ANTONIO LEIVA 03/10/2024 14:08:06 Final Observation Date Value Abnormality Reference (Units ) Status Ferritin 03/10/2024 14:08:06 41 13-150 (ng /mL) Final Postmenopausal women have hi gher ferritin levels than pre-menopausal women. The above reference interval is based on pre-menopausal women. Performing Location [facility] [place] [address] [place] [address]
--- OUTSIDE RECORDS SUMMARY | 2024-05-13 05:14 | External Medical Summary | Summary of Care ---
Author Name Unknown Organization [facility] Address [address] [facility] [place] [address] Phone [phone] Care Team Providers Care Psychiatric Assistant Name Role Phone Scott Montoya MD Primary Care Provider + Reason for Visit * Reason Onset Date Comments Medication Refill 03/08/2024 Encounter Details Date Type Department Care Team (Late st Contact Info) Description 03/08/2024 Refill Family Practice [facility] [address] [facility] [place] [address] Scott Montoya MD [address] [place] [address] Controlled substance agreement signed; Chronic bilateral low [...] Strip 5 7 Active Insulin Infusion Pump (MINIMMassively Parallel Technologies 630G INSULIN PUMP) KITIndications:Type 2 diabetes mellitus with hemoglobin A1c goal of less than 8.0% ([facility]) Use as directed. 8 Active CPAP [...] suspected opioid overdose. Seek immediate medical attention. [email or web address]?[email or web address] 1 Each 3 3 Active Loratadine 10 [...] NEEDED FOR NAUSEA 30 Tablet 4 Active Albuterol Sulfate HFA 108 (90 Base) MCG/ACT Inhalation Aerosol Solution INHALE 2 PUFFS BY MOUTH EVERY 6 HOURS NEEDED FOR SHORTNESS OF BREATH 18 g 5 4 Active Meclizine HCl 25 MG Oral [...] skin once a week. 4 Patch 4 03/08/20 24 Discontinu ed(Refill) documented as of this [...] Overview: Per Obesity Taxonomy Coronary atherosclerosis of [place] coronary artery 09/15/2008 10/03/2008 Malaise and fatigue [...] mRNA, LNP-s, No Pre serve, 2-Dose Series (Evermede) 11/08/2020,10/11/2020 HEP A - Hepatitis A (Adult > 18 yrs) 04/11/2011, 09/20/2010 Hepatitis B, 20+ yrs 07/05/2015 Pneumococcal Conjugate Vacci ne, 20-valent (Oqzaity85) 03/13/2023 Pneumococcal Polysaccharide PPV23 (Pneumovax) 02/19/2018,03/09/2007 Seasonal [...] Telephone Encounter - Alison Ellison LPN - 03/10/2024 12:07 PM EDT Called and notified pt, pt voiced understanding. * Telephone Encounter - Scott Montoya MD - 03/10/2024 11:31 AM EDT Signed Prescriptions: Disp Refills Buprenorphine 5 MCG/HR Transdermal Patch W*4 Patch0 Sig: Place 1 Patch topically on the skin once a week. Authorizing Provider: SCOTT MONTOYA * Telephone Encounter - Scott Montoya MD - 03/10/2024 11:30 AM EDT Refill sent notify pt "I have reviewed the patient's controlled substance dispensing history in the Prescription Drug Monitoring Program in compliance with the [facility] regulations before prescribing a controlled substance." * Telephone Encounter - Francois Álvarez pastry baker - 03/10/2024 9:41 AM EDT Needs this before Thursday03/11/24, will be at a wedding all day thursday Pt calling to check on status of Buprenorphine 5 MCG/HR Transdermal Patch Weekly (Syed) . Callercan be reached at [phone]. Thank you, Francois Álvarez Special Agent Secret Service I [facility] ([facility]) 03/10/2024,9:41 AM * Telephone Encounter - Pricila Cho [facility] - 03/10/2024 7:21 AM EDT Pending Prescriptions: Disp Refills Buprenorphine 5 MCG/HR Transdermal Patch W*4 Patch0 Sig: Place 1 Patch topically on the skin once a week. * Telephone Encounter - Pricila Cho [facility] - 03/10/2024 7:20 AM EDT I have reviewed the patients controlled substance dispensing history in the Prescription Drug Monitoring Program in compliance with the [facility] regulations before prescribing a controlled substance. PDMP checked on 03/10/2024. Pending Prescriptions: Disp Refills Buprenorphine 5 MCG/HR Transdermal Patch *4 Patch0 Sig: Place 1 Patch topically on the skin once a week. Last Visit: 02/12/2024 (in office), 09/08/2022 (telemedicine) Next Visit: 03/16/2024 Date medication was last filled: 02/09/24 Date medication is due for refill: 03/07/24 Pharmacy: [id number] [id number] [facility] Is this request for a controlled substance? [...] Review. Please approve if appropriate. Thank you, Pricila Cho, PharmD Clinical Pharmacist [facility] ([facility]) [phone] 03/10/2024, 7:21 AM documented in this encounter Plan of Treatment Upcoming Encounters Date Type Department Care Team (Latest Contact Info) Description 4 1:00 PM EDT Office Visit Pharmacy, [place] [address] [place] [address] [facility] [address] 4 11:15 AM EDT Imaging Radiology, [place] [address] [place] [address] 4 8:45 AM EDT Office Visit Hematology/Onco logy Roney Melendez [place] [address] [place] [address] Sunil Bourgeois MD 200 [facility] [place] [address] 4 9:30 AM EDT Nurse Only Hematology/Onco logy Mis[place] 200 [facility] [place] [phone] Park, Chair 2 Hem Onc [place] [address] [place] [address] 4 12:20 PM EDT Office Visit Family Practice [facility] [address] [place] [address] Scott Montoya MD [address] [facility] [place] [address] 4 12:30 PM EDT Office Visit Ophthalmology, [facility] [address] [place] [address] Rolan Self, DO [address] [place] [address] 4 11:15 AM EDT Hospital Encounter ENDO [facility], Endoscopy Room [facility] [address] [facility] [phone] Aj Pruett, DO [address] [place] [address] 4 11:15 AM EDT - 4 11:45 AM EDT Surgery ENDO [facility], Endoscopy Room [facility] [place] [phone] Aj Pruett, DO [address] [facility] [place] [address] ESOPHAGOGASTRODUODENOSCOPY (EGD), FLEXIBLE, TRANSORAL, DIAGNOSTIC 4 10:00 AM EST Telemedicine Psychiatry [place] [address] [place] [address] Nhi Fritz, SACK SEWER [address] [place] [address] 4 11:00 AM EST Telemedicine Pharmacy, [facility] 132 [facility] [place] [address] [facility] [place], [place] [address] 4 1:40 PM EST Office Visit Nephrology, [facility] 200 [facility] [place] [address] Jonathan Mathew MD 200 [facility] [place] [address] 5 8:00 AM EST Office Visit Family Practice [facility] [address] [facility] [address] Scott Montoya MD [address] [place] [address] 5 1:20 PM EST Office Visit Hepatology, [facility] 132 [facility] [place] [address] Jazzy Chu DO [address] [place] [address] 5 10:30 AM EST Telemedicine Gastroenterolog y, [facility] 132 [facility] [place] [address] Adam Bradshaw CRNP [address] [place] [address] Scheduled Procedures Name Priority Associated Diagnoses Date/Ti [...] this encounter Medical Devices Implanted Type Area Senior Climate Advisor Device Identifier Shelf Expiration Date Model / Serial / Lot Neurostimul Intellis Adaptiv - [id number] - [id number] Implanted:Qty: 1 on 08/22/2022 by Rafia Small MD at OR [facility] N/A: Spine Lumbar [employer] 06/21/2023 [id number] / [id number] / Description:battery Medtronic Lead Kit 60 Cm Implanted:Qty: 1 on 08/22/2022 by Rafia Small MD at OR [facility] N/A: Spine Lumbar 02/01/2026 [id number] / / [id number] Medtronic Lead Kit 60cm Implanted:Qty: 1 on 08/22/2022 by Rafia Small MD at OR [facility] N/A: Spine Lumbar 03/21/2026 [id number] / / [id number] Envelope Tyrx Med Antibacteril - [id number] Implanted:Qty: 1 on 08/22/2022 by Rafia Small MD at OR [facility] N/A: Spine Lumbar [employer] 03/10/2023 [id number] / / [id number] Hemostatic Clip Res 235cm - [id number] Implanted:Qty: 4 on 10/05/2023 by Aj Pruett DO at ENDOSCOPY [facility] : ENDOSCOPY 02/03/2026 [id number] / / Hemostatic Clip Res 235cm - [id number] Implanted:Qty: 1 on 10/05/2023 by Aj Pruett DO at ENDOSCOPY [facility] : ENDOSCOPY 02/02/2026 [id number] / / documented as of this encounter [...] Power of Attor narda? No Care Teams Psychiatric Assistant Relationship Specialty Start Date End Date Scott Montoya MD [address] [address] PCP - General Family Medicine 08/03/18 documented as of this encounter
--- OUTSIDE RECORDS SUMMARY | 2024-05-13 05:14 | External Medical Summary ---
Author Name Unknown Address Unknown Organization K01:LABORATORY C - [address] [facility] [place] [address] Laboratory Report Ordering Provider Test Date Status GEMAJAN 03/10/2024 14:08:06 Final Observation Date Value Abnormality Reference (Units ) Status SYNC LEUKOCYTES IN BLOOD BY AUTOMATED COUNT 03/10/2024 14:08:06 6.18 4.00-10.80 (K/uL) Final Segs 03/10/2024 14:08:06 65.4 40.0-75.0 (%) Final Lymphs % 03/10/2024 14:08:06 19.7 18.0-42.0 (%) Final Monos 03/10/2024 14:08:06 7.6 1.0-11.0 (%) Final Eosinophils 03/10/2024 14:08:06 5.7 0.0-6.0 (%) Final Basos 03/10/2024 14:08:06 1.1 0.0-2.0 (%) Final Immature Granulocyte, Percent 03/10/2024 14:08:06 0.5 0.0-2.0 (%) Final Absolute Segs 03/10/2024 14:08:06 4.04 1.80-7.70 (K/uL) Final Lymphs, absolute 03/10/2024 14:08:06 1.22 1.00-4.80 (K/ul) Final Monos, Abs 03/10/2024 14:08:06 0.47 0.00-1.10 (K/uL) Final Eos, Abs 03/10/2024 14:08:06 0.35 0.00-0.70 (K/uL) Final Basos, Abs 03/10/2024 14:08:06 0.07 0.00-0.20 (K/uL) Final Immature Granulocytes, Number 03/10/2024 14:08:06 0.03 0.00-0.20 (K/uL) Final Performing Location LAB[facility]ATORY [facility] [place] - [address] [facility] [place] [address]
--- OUTSIDE RECORDS SUMMARY | 2024-05-13 05:14 | External Medical Summary | Summary of Care ---
Author Name Unknown Organization [facility] Address [address] [place] [address] Phone [phone] Care Team Providers Care Story Reader Name Role Phone Scott Weldon MD Primary Care Provider + Reason for Visit * Reason Comments Outpatient Testing Encounter Details Date Type Department Care Team (Late st Contact Info) Description 03/10/2024 2:10 PM EDT Laboratory Laboratory, [place] [address] [place] [address] [place], Laboratory [address] [place] [address] Iron deficiency anemia, unspecified iron deficiency anemia type; Cirrhosis of liver without ascites, unspecified hepatic cirrhosis type (HCC); Type 2 diabetes mellitus with hemoglobin A1c goal of less than 8.0% (HCC); Thrombocytopenia ([facility]) Allergies Active Allergy Reactions Criticality Noted Date Comments Naproxen Sodium Bleeding High 11/29/2013 Pollen 12/03/2022 Seasonal Food (See Comments) Anaphylaxis High 04/20/2019 Hot peppers (oils) Kiwi Extract Anaphylaxis High 04/20/2019 documented as of this encounter (statuses as of 03/10/2024) Medications Medication Sig Dispensed Refills Start Date End Date Status ONETOUCH ULTRASOFT LANCETS MISCIndications:DM type 2, not at goal ([facility]) check FS 6 times daily [...] Strip 5 02/17/2017 Active Insulin Infusion Pump (MINIMDrug Response Dx 630G INSULIN PUMP) KITIndications:Type 2 diabetes mellitus [...] Overview: Per Obesity Taxonomy Coronary atherosclerosis of [place] coronary artery 09/15/2008 10/03/2008 Malaise and fatigue [...] mRNA, LNP-s, No Pre serve, 2-Dose Series ([employer]) 11/08/2020,10/11/2020 HEP A - Hepatitis A (Adult > 18 yrs) 04/11/2011, 09/20/2010 Hepatitis B, 20+ yrs 07/05/2015 Pneumococcal Conjugate Vacci ne, 20-valent ([id number]) 03/13/2023 Pneumococcal Polysaccharide PPV23 (Pneumovax) 02/19/2018,03/09/2007 Seasonal [...] ages 0-17 years) Not on file 10/07/2023 Are you homeless or worried that [...] Info) Description 4 11:15 AM EDT Imaging Rad[facility], [place] [address] [facility] [address] 4 8:45 AM EDT Office Visit Hematology/Onco logy [place] [address] [place] [phone] Sunil Bourgeois MD [address] [place] [address] 4 9:30 AM EDT Nurse Only Hematology/Onco logy Treatment, [place] [address] [place], [place] [phone] Nora, Chair 2 Hem Onc Scene [address] [place] [address] 4 12:20 PM EDT Office Visit Family Practice [facility] [address] [place] [address] Scott Weldon MD [address] [place] [address] 4 12:30 PM EDT Office Visit Ophthalmology, [facility] [address] [place] [address] Rolan Self, DO [address] [place] [address] 4 11:15 AM EDT Hospital Encounter ENDO [facility], Endoscopy Room [facility] [address] [place] [phone] Aj Pruett, DO [address] [place] [address] 4 11:15 AM EDT - 4 11:45 AM EDT Surgery ENDO [facility], Endoscopy Room [facility] [address] [place] [phone] Aj Pruett, DO [address] [place] [address] ESOPHAGOGASTRODUODENOSCOPY (EGD), FLEXIBLE, TRANSORAL, DIAGNOSTIC 4 10:00 AM EST Telemedicine Psychiatry [address], [place] [address] [place] [address] Nhi Fritz CRNP [address] [place] [address] 4 1:00 PM EST Office Visit Pharmacy, [address] [address] [place] [address] [place] [address] 4 11:00 AM EST Telemedicine Pharmacy, [facility] [place] [address] [facility] [address] [place] [address] 4 1:40 PM EST Office Visit Nephrology, [facility] [address] [place] [address] Jonathan Mathew MD [address] [place] [address] 5 8:00 AM EST Office Visit Family Practice [facility] [address] [place] [address] Scott Weldon MD [address] [place] [address] 5 1:20 PM EST Office Visit Hepatology, [facility] [address] [place] [address] Jazzy Chu, [address] [place] [address] 10:30 AM EST Telemedicine Gastroenterolog y, [facility] [address] [place] [address] Adam Bradshaw CRNP [address] [place] [address] Pending Results Name Type Priority Associated Diagnoses Date /Time FERRITIN Lab STAT Iron deficiency anemia, unspecified iron deficiency anemia type 03/10/2024 2:08 PM EDT IRON SCREEN, INCLUDING TIBC Lab STAT Iron deficiency anemia, unspecified iron deficiency anemia type 03/10/2024 2:08 PM EDT CBC WITH WBC DIFFERENTIAL AND ANEMIA REFLEX WORKUP Lab STAT Cirrhosis of liver without ascites, unspecified hepatic cirrhosis type (HCC) Type 2 diabetes mellitus with hemoglobin A1c goal of less than 8.0% (HCC) Thrombocytopenia (HCC) 03/10/2024 2:08 PM EDT COMPREHENSIVE METABOLIC PANEL Lab Routine Cirrhosis of liver without ascites, unspecified hepatic cirrhosis type (HCC) Type 2 diabetes mellitus with hemoglobin A1c goal of less than 8.0% (HCC) Thrombocytopenia (HCC) 03/10/2024 2:08 PM EDT LIPASE Lab Routine Cirrhosis of liver without ascites, unspecified hepatic cirrhosis type (HCC) Type 2 diabetes mellitus with hemoglobin A1c goal of less than 8.0% (HCC) Thrombocytopenia (HCC) 03/10/2024 2:08 PM EDT ALPHA-FETOPROTEIN TUMOR MARKER Lab Routine Cirrhosis of liver without ascites, unspecified hepatic cirrhosis type (HCC) 03/10/2024 2:08 PM EDT ANEMIA CBC Lab STAT Cirrhosis of liver without ascites, unspecified hepatic cirrhosis type (HCC) Type 2 diabetes mellitus with hemoglobin A1c goal of less than 8.0% (HCC) Thrombocytopenia (HCC) 03/10/2024 2:08 PM EDT DIFFERENTIAL, AUTOMATED Lab STAT Cirrhosis of liver without ascites, unspecified hepatic cirrhosis type (HCC) Type 2 diabetes mellitus with hemoglobin A1c goal of less than 8.0% (HCC) Thrombocytopenia (HCC) 03/10/2024 2:08 PM EDT ANEMIA REFLEX CHEMISTRY HOLD Lab STAT Cirrhosis of liver without ascites, unspecified hepatic cirrhosis type (HCC) Type 2 diabetes mellitus with hemoglobin A1c goal of less than 8.0% (HCC) Thrombocytopenia (HCC) 03/10/2024 2:08 PM EDT Scheduled Procedures Name Priority Associated [...] this encounter Medical Devices Implanted Type Area Cherry Sorter Device Identifier Shelf Expiration Date Model / Serial / Lot Neurostimul Intellis Adaptiv - [id number] - [id number] Implanted:Qty: 1 on 08/22/2022 by Rafia Small MD at OR [facility] N/A: Spine Lumbar [employer] 06/21/2023 [id number] / [id number] / Description:battery Medtronic Lead Kit 60 Cm Implanted:Qty: 1 on 08/22/2022 by Rafia Small MD at OR [facility] N/A: Spine Lumbar 02/01/2026 [id number] / / [id number] Medtronic Lead Kit 60cm Implanted:Qty: 1 on 08/22/2022 by Rafia Small MD at OR [facility] N/A: Spine Lumbar 03/21/2026 [id number] / / [id number] Envelope Tyrx Med Antibacteril - [id number] Implanted:Qty: 1 on 08/22/2022 by Rafia Small MD at OR [facility] N/A: Spine Lumbar [employer] 03/10/2023 [id number] / / [id number] Hemostatic Clip Res 235cm - [id number] Implanted:Qty: 4 on 10/05/2023 by Aj Pruett DO at ENDOSCOPY [facility] : ENDOSCOPY 02/03/2026 [id number] / / Hemostatic Clip Res 235cm - [id number] Implanted:Qty: 1 on 10/05/2023 by Aj Pruett DO at ENDOSCOPY [facility] : ENDOSCOPY 02/02/2026 [id number] / / documented as of this encounter Visit Diagnoses Diagnosis Iron deficiency anemia, unspecified iron deficiency anemia type Cirrhosis of liver without ascites, unspecified hepatic cirrhosis type (HCC) Type 2 diabetes mellitus with hemoglobin A1c goal of less than 8.0% (HCC) Thrombocytopenia (HCC) Thrombocytopenia, unspecified Portal hypertensive gastropathy (HCC) Other specified disorder [...] Power of Attor narda? No Care Teams Story Reader Relationship Specialty Start Date End Date Scott Weldon MD [address] [place] [address] PCP - General Family Medicine 08/03/18 documented as of this encounter
--- OUTSIDE RECORDS SUMMARY | 2024-05-13 05:14 | External Medical Summary ---
Author Name Unknown Address Unknown Organization K01:LABORATORY [facility] - [address] [place], [place] [address] [address] Laboratory Report Ordering Provider Test Date Status JAN RIBEIRO 03/10/2024 14:08:06 Final Observation Date Value Abnormality Reference (Units ) Status WBC, Total 03/10/2024 14:08:06 6.18 4.00-10.8 0 (K/uL) Final RBC 03/10/2024 14:08:06 4.30 3.85-5.15 (M/uL) Final Hemoglobin 03/10/2024 14:08:06 11.4 Below low normal 12 .0-15.3 (g/dL) Final Anemia reflex testing trigge rs on a HGB < 12.0 for Females and HGB < 13.0 for Males in accordance with the WHO Anemia Guidelines
Anemia reflex testing triggers on a HGB < 12.0 for Females and HGB < 13.0 for Males in accordance with the WHO Anemia Guidelines HCT 03/10/2024 14:08:06 37.1 36.0-45.2 (%) Final MCV 03/10/2024 14:08:06 86.3 81.5-97.5 (fL) Final MCH 03/10/2024 14:08:06 26.5 27.0-34.0 (pg) Final MCHC 03/10/2024 14:08:06 30.7 32.0-36.0 (g/dL) Final RDW 03/10/2024 14:08:06 14.9 11.5-15.5 (%) Final Platelets 03/10/2024 14:08:06 93 Below low normal 140 -400 (K/uL) Final MPV 03/10/2024 14:08:06 10.7 6.6-11.1 ( fL) Final Nucleated erythrocytes/100 leukocytes [Ratio] in Blood by Automated count 03/10/2024 14:08:06 0 <=0 (/100 WBCs) Final Performing Location [facility] - [address] [facility] [address]
--- OUTSIDE RECORDS SUMMARY | 2024-05-13 05:15 | External Medical Summary | Summary of Care ---
Author Name Unknown Organization [facility] Address [address] [facility] [place] [address] Phone [phone] Care Team Providers Care Button Decorating Machine Operator Name Role Phone Scott Weldon MD Primary Care Provider + Encounter Details Date Type Department Care Team (Late st Contact Info) Description 02/25/2024 Population Health External Data Unspecified Department Allergies Active Allergy Reactions Criticality Noted Date Comments Naproxen Sodium Bleeding High 11/29/2013 Pollen 12/03/2022 Seasonal Food (See Comments) Anaphylaxis High 04/20/2019 Hot peppers (oils) Kiwi Extract Anaphylaxis High 04/20/2019 documented as of this encounter (statuses as of 02/29/2024) Medications Medication Sig Dispensed Refills Start Date [...] 8.0% ([facility]) Use as directed. 07/30/2017 Active CPAP every [...] suspected opioid overdose. Seek immediate medical attention. [email or web address] 1 Each 3 11/27/2022 Active [...] for Dizziness. 30 Tablet 1 02/03/2024 Active Buprenorphine 5 MCG/HR Transdermal Patch Weekly (Butrans)Indication s:Controlled substance agreement signed,Chronic bilateral low back pain with sciatica, sciatica laterality unspecified,Chronic pain syndrome Place 1 Patch topically on the skin once a week. 4 Patch 02/04/2024 Active Eszopiclone 2 MG Oral Tablet (Lunesta) Take 1 Tablet by mouth at bedtime. 30 Tablet 02/01/2024 Active Atenolol 25 MG Oral Tablet (Tenormin) [...] the morning. 90 Tablet 3 02/26/2024 Active documented as of this encounter (statuses as of 02/29/2024) Active Problems Problem Noted Date Diagnosed Date [...] as of this encounter (statuses as of 02/29/2024) Resolved Problems Problem Noted Date Diagnosed Date [...] as of this encounter (statuses as of 02/29/2024) Immunizations Name Administration Dates Next Due COVID-19 mRNA, LNP-s, No Pre serve, 2-Dose Series ([employer]) 11/08/2020,10/11/2020 HEP A - Hepatitis A (Adult > 18 yrs) 04/11/2011, 09/20/2010 Hepatitis B, 20+ yrs 07/05/2015 Pneumococcal Conjugate Vacci ne, 20-valent ([id number]) 03/13/2023 Pneumococcal Polysaccharide PPV23 (Pneumovax) 02/19/2018,03/09/2007 Seasonal Influenza, PF, 6 M & above, IM , (FluLaval or Fluzone) 03/13/2023,03/01/2021,02/28/2020,03/09,02/19/2018,03/02/2017 Seasonal Influenza, Quadriva lent, No Preserve, IM 03/20/2016,07/05/2015 Seasonal Influenza, Trivalen t, (IIV3), with Preserv, (Fluzone) 06/22/2014,03/03/2013,04/09/2012,04/11,02/25/2010,02/19/2009,05/17/2008 ,03/09/2007 TDAP (age 10 and older)(Boostrix) [...] Contact Info) Description 4 12:00 PM EDT Telemedicine Psychiatry, [address] [address] Rj Mai MD [address] [place] [address] 4 11:00 AM EDT Laboratory Laboratory, [place] [address] [place] [phone] [facility] [address] [place] [address] 4 11:15 AM EDT Imaging Radiology, [place] [address] [place] [address] 4 1:00 PM EDT Office Visit Pharmacy, [place] [address] [facility], [place] [address] Jayesh [facility] [address] [facility], [place] [address] 4 8:45 AM EDT Office [facility] [address] [place] [phone] Sunil Bourgeois MD [address] [place] [address] 4 12:20 PM EDT Office Visit Family Practice [facility] [address] [place] [address] Scott Weldon MD [address] [place] [address] 4 12:30 PM EDT Office Visit Ophthalmology, [facility] [address] [place] [address] Rolan Self, DO [address] [place] [address] 4 11:15 AM EDT Hospital Encounter ENDO [facility], Endoscopy Room [facility] [address] [place] [phone] Aj Pruett, DO [address] [place] [address] 4 11:15 AM EDT - 4 11:45 AM EDT Surgery ENDO [facility], Endoscopy Room [facility] [address] [place] [phone] Aj Pruett, DO [address] [place] [address] ESOPHAGOGASTRODUODENOSCOPY (EGD), FLEXIBLE, TRANSORAL, DIAGNOSTIC 4 11:00 AM EST Telemedicine Pharmacy, [facility] [address] [facility] [place] [address] [facility] [address] [facility] [place] [address] 4 1:40 PM EST Office Visit Nephrology, [facility] [address] [facility] [place], [place] [address] Jonathan Mathew MD [address] [facility] [place] [address] 5 8:00 AM EST Office Visit Family Practice [facility] [address] [facility] [place] [address] Scott Weldon MD [address] [facility] [place] [address] 5 1:20 PM EST Office Visit Hepatology, [facility] [address] [facility] [place] [address] Jazzy Chu DO [facility] [place] [address] 5 10:30 AM EST Telemedicine Gastroenterolog y, [facility] [address] [facility] [place] [address] Adam Bradshaw CRNP [address] [place] [address] Scheduled Procedures Name Priority Associated Diagnoses Date/Ti [...] 07/23/2023, 100 09/2021, 12/12/2019, Additional history exists DTap/Tdap Vaccines [...] this encounter Medical Devices Implanted Type Area Pulley Worker Device Identifier Shelf Expiration Date Model / Serial / Lot Neurostimul Intellis Adaptiv - [id number] - [id number] Implanted:Qty: 1 on 08/22/2022 by Rafia Small MD at OR [facility] N/A: Spine Lumbar [employer] 06/21/2023 [id number] / [id number] / Description:battery Medtronic Lead Kit 60 Cm Implanted:Qty: 1 on 08/22/2022 by Rafia Small MD at OR [facility] N/A: Spine Lumbar 02/01/2026 [id number] / / [id number] Medtronic Lead Kit 60cm Implanted:Qty: 1 on 08/22/2022 by Rafia Small MD at OR [facility] N/A: Spine Lumbar 03/21/2026 [id number] / / [id number] Envelope Tyrx Med Antibacteril - [id number] Implanted:Qty: 1 on 08/22/2022 by Rafia Small MD at OR [facility] N/A: Spine Lumbar [employer] 03/10/2023 [id number] / / [id number] Hemostatic Clip Res 235cm - [id number] Implanted:Qty: 4 on 10/05/2023 by Aj Pruett DO at ENDOSCOPY [facility] [employer] : ENDOSCOPY 02/03/2026 [id number] / / Hemostatic Clip Res 235cm - [id number] Implanted:Qty: 1 on 10/05/2023 by Aj Pruett DO at ENDOSCOPY [facility] : ENDOSCOPY 02/02/2026 [id number] / / documented as of this encounter [...] Power of Attor narda? No Care Teams Button Decorating Machine Operator Relationship Specialty Start Date End Date Scott Weldon MD [address] [facility] [place] [address] PCP - General Family Medicine 08/03/18 documented as of this encounter
--- OUTSIDE RECORDS SUMMARY | 2024-05-13 05:15 | External Medical Summary | Summary of Care ---
Author Name Unknown Organization [facility] Address [address] [place] [address] Phone [phone] Care Team Providers Care Motor Vehicle Operator Road Supervisor Name Role Phone Scott Weldon MD Primary Care Provider + Encounter Details Date Type Department Care Team (Late st Contact Info) Description 02/29/2024 12:00 PM EDT Telemedicine Psychiatry, [address] [address] Rj Mai MD [address] [place] [address] MICHELLE (generalized anxiety disorder)* Allergies [...] suspected opioid overdose. Seek immediate medical attention. [email or web address] 1 Each 3 3 Active Loratadine 10 [...] less than 8.0% ([facility]),DM type 2, not at goal ([facility]) INJECT UP TO 200 UNITS [...] once a week. 4 Patch 4 Active Atenolol 25 MG Oral Tablet [...] bedtime. 30 Tablet 2 4 Active Eszopiclone 2 MG Oral Tablet (Lunesta) Take 1 Tablet by mouth at bedtime. 30 Tablet 4 02/29/20 24 Discontinu ed(Refill) documented as of this [...] Overview: Per Obesity Taxonomy Coronary atherosclerosis of [place] coronary artery 09/15/2008 10/03/2008 Malaise and fatigue [...] mRNA, LNP-s, No Pre serve, 2-Dose Series (Altierre) 11/08/2020,10/11/2020 HEP A - Hepatitis A (Adult > 18 yrs) 04/11/2011, 09/20/2010 Hepatitis B, 20+ yrs 07/05/2015 Pneumococcal Conjugate Vacci ne, 20-valent ([id number]) 03/13/2023 Pneumococcal Polysaccharide PPV23 (Pneumovax) 02/19/2018,03/09/2007 Seasonal [...] Progress Notes * Rj Mai MD - 02/29/2024 12:01 PM EDT Patient location: HOME. I was not in a hospital or clinic location. After connecting through [employer], patient was verified with two unique identifiers. Patient (or authorized legal dental detail representative) was then informed that this was a Telemedicine visit and being conducted confidentially over secure lines. Methods to assure confidentiality were taken. Patient acknowledged consent and understanding of privacy and security of the Telemedicine visit. The patient agreed to participate. PSYCHOTHERAPY & MEDICATION MANAGEMENT RETURN VISIT NOTE CHIEF COMPLAINT: f/u appt INTERVAL HISTORY: she states she is "ok". States she is experiencing a lot of stressors. Found out son who is about to get is expecting a baby. Feels family overall does not care about her orhealth issues. Discuss complicated dynamics with . ROS EXAM: negative except as noted above [...] for suspectedopioid overdose. Seek immediate medical attention. [email or web address] 1 Each 3 Loratadine 10 MG Oral [...] as needed for Dizziness. 30 Tablet 1 Buprenorphine 5 MCG/HR Transdermal Patch Weekly (Butrans) Place 1 Patch topically on the skin once a week. 4 Patch 0 Eszopiclone 2 MG Oral Tablet (Lunesta) Take 1 Tablet by mouth at bedtime. 30 Tablet 0 Atenolol 25 MG Oral Tablet (Tenormin) Take [...] If needed for nausea. 300 Tablet 1 No current facility-administered medications for this visit. STRATEGIES: Supportive listening LABS: Component Latest Ref Rng 02/11/2024 BUN 6 - 20 mg/dL 20 CREATININE 0.5 - 1.0 mg/dL 1.6 (H) EGFR >=60 mL/min 38 (L) SODIUM 135 - 146 mmol/L 141 POTASSIUM 3.5 - 5.1 mmol/L 4.0 CHLORIDE 98 - 107 mmol/L 99 CO2 22 - 32 mmol/L 30 ANION GAP 7 - 15 mmol/L 12 GLUCOSE 70 - 120 mg/dL 101 Albumin 3.8 - 5.0 g/dL 4.2 AST 10 - 35 U/L 47 (H) Alkaline Phosphatase 35 - 130 U/L 234 (H) Bilirubin, Total <=1.2 mg/dL 0.5 CALCIUM 8.4 - 10.2 mg/dL 9.1 Protein 6.0 - 8.3 g/dL 7.2 ALT 10 - 35 U/L 22 Legend: (H) High (L) Low MENTAL STATUS EVALUATION: Appearance: casually dressed Behavior: [...] CPAP each night for DONNA Return 6 weeks; aware she will be transferred to new provider Risk/Benefits of Medication Discussed/Verbalized Understanding yes Time Spent on Visit: 30 minutes - including preparing to see the patient, reviewing history, performing evaluation, counseling/educating patient, ordering medications/tests, documenting clinical information. > 16 minutes spent on supportive psychotherapy documented in this encounter Plan of Treatment Upcoming Encounters Date Type Department Care Team (Latest Contact Info) Description 4 11:00 AM EDT Laboratory Laboratory, [place] [address] [place] [facility] [place] [id number] [facility] [address] [place] [address] 4 11:15 AM EDT Imaging Radiology, [place] [address] [place] [address] 4 1:00 PM EDT Office Visit Pharmacy, [place] [address] [place] [address] [facility] [address] [place] [address] 4 8:45 AM EDT Office Visit Hematology/Onco logy [place] [address] [place], [place] [address] Sunil Bourgeois MD [address] [place] [address] 4 12:20 PM EDT Office Visit Family Practice [facility] [address] [place], [place] [address] Scott Weldon MD [address] [place] [address] 4 12:30 PM EDT Office Visit Ophthalmology, [facility] [address] [place] [address] Rolan Self, DO [address] [place] [address] 4 11:15 AM EDT Hospital Encounter ENDO O[facility], Endoscopy Room [facility] [address] [place] [address] Aj Pruett, DO [address] [place] [address] 4 11:15 AM EDT - 4 11:45 AM EDT Surgery ENDO [facility], Endoscopy Room [facility] [address] [place] [address] Aj Pruett, DO [address] [place] [address] ESOPHAGOGASTRODUODENOSCOPY (EGD), FLEXIBLE, TRANSORAL, DIAGNOSTIC 4 11:00 AM EST Telemedicine Pharmacy, [facility] [address] [place] [address] [facility] [address] [place] [address] 4 1:40 PM EST Office Visit Nephrology, [facility] [address] [place] [address] Jonathan Mathew MD [address] [place] [address] 5 8:00 AM EST Office Visit Family Practice [facility] [address] [facility] [address] Scott Weldon MD [address] [place] [address] 5 1:20 PM EST Office Visit Hepatology, [facility] [address] [facility] [place] [address] Jazzy Chu DO [address] [place] [address] 5 10:30 AM EST Telemedicine Gastroenterolog y, [facility] [address] [facility] [place] [place] [address] Adam Bradshaw CRNP [address] [place] [address] Scheduled Procedures Name Priority Associated Diagnoses Date/Ti [...] this encounter Medical Devices Implanted Type Area Cartography Professor Device Identifier Shelf Expiration Date Model / Serial / Lot Neurostimul Intellis Adaptiv - [id number] - [id number] Implanted:Qty: 1 on 08/22/2022 by Rafia Small MD at OR [facility] N/A: Spine Lumbar [employer] 06/21/2023 [id number] / [id number] / Description:battery Medtronic Lead Kit 60 Cm Implanted:Qty: 1 on 08/22/2022 by Rafia Small MD at OR [facility] N/A: Spine Lumbar 02/01/2026 [id number] / / [id number] Medtronic Lead Kit 60cm Implanted:Qty: 1 on 08/22/2022 by Rafia Small MD at OR [facility] N/A: Spine Lumbar 03/21/2026 [id number] / / [id number] Envelope Tyrx Med Antibacteril - [id number] Implanted:Qty: 1 on 08/22/2022 by Rafia Small MD at OR [facility] N/A: Spine Lumbar [employer] 03/10/2023 [id number] / / [id number] Hemostatic Clip Res 235cm - [id number] Implanted:Qty: 4 on 10/05/2023 by Aj Pruett DO at ENDOSCOPY [facility] [employer] : ENDOSCOPY 02/03/2026 [id number] / / Hemostatic Clip Res 235cm - [id number] Implanted:Qty: 1 on 10/05/2023 by Aj Pruett DO at ENDOSCOPY [facility] [employer] : ENDOSCOPY 02/02/2026 [id number] / / documented as of this encounter [...] Power of Attor narda? No Care Teams Motor Vehicle Operator Road Supervisor Relationship Specialty Start Date End Date Scott Weldon MD [address] [place] [address] PCP - General Family Medicine 08/03/18 documented as of this encounter
--- OUTSIDE RECORDS SUMMARY | 2024-05-13 05:15 | External Medical Summary | Summary of Care ---
Author Name Unknown Organization [facility] Address [address] [facility] [place] [address] Phone [phone] Care Team Providers Care Roller Printer Name Role Phone Scott Weldon MD Primary Care Provider + Encounter Details Date Type Department Care Team (Late st Contact Info) Description 03/02/2024 Telephone Gastroenterology, [facility] [address] [place] [address] Aj Pruett DO [address] [place] [address] Allergies Active Allergy Reactions Criticality Noted Date Comments Naproxen Sodium Bleeding High 11/29/2013 Pollen 12/03/2022 Seasonal Food (See Comments) Anaphylaxis High 04/20/2019 Hot peppers (oils) Kiwi Extract Anaphylaxis High 04/20/2019 documented as of this encounter (statuses as of 03/02/2024) Medications Medication Sig Dispensed Refills Start Date [...] Strip 5 02/17/2017 Active Insulin Infusion Pump (MINIMMedArkive 630G INSULIN PUMP) KITIndications:Type 2 diabetes mellitus with hemoglobin A1c goal of less than 8.0% ([facility]) Use as directed. 07/30/2017 Active [...] suspected opioid overdose. Seek immediate medical attention. [email or web address]=[email or web address] 1 Each 3 11/27/2022 Active [...] goal of less than 8.0% ([facility]),DM type 2, not at goal ([facility]) INJECT UP TO 200 UNITS [...] once a week. 4 Patch 02/04/2024 Active Atenolol 25 MG Oral Tablet (Tenormin) [...] at bedtime. 30 Tablet 2 02/29/2024 Active documented as of this encounter (statuses as of 03/02/2024) Active Problems Problem Noted Date Diagnosed Date [...] as of this encounter (statuses as of 03/02/2024) Resolved Problems Problem Noted Date Diagnosed Date [...] Per Obesity Taxonomy Coronary atherosclerosis of [place] coronary artery 09/15/2008 10/03/2008 Malaise and fatigue [...] as of this encounter (statuses as of 03/02/2024) Immunizations Name Administration Dates Next Due COVID-19 mRNA, LNP-s, No Pre serve, 2-Dose Series (Sprint Nextel) 11/08/2020,10/11/2020 HEP A - Hepatitis A (Adult > 18 yrs) 04/11/2011, 09/20/2010 Hepatitis B, 20+ yrs 07/05/2015 Pneumococcal Conjugate Vacci ne, 20-valent ([id number]) 03/13/2023 Pneumococcal Polysaccharide PPV23 (Pneumovax) 02/19/2018,03/09/2007 Seasonal [...] Description 4 11:00 AM EDT Laboratory Laboratory, [place] [address] [place] [address] [place], [facility] [address] [facility] [id number] 4 11:15 AM EDT Imaging Radiology, [place] [address] [facility], [place] [address] 4 1:00 PM EDT Office Visit Pharmacy, [place] [address] [facility], [place] [address] [facility] [address] [facility], [place] [address] 4 8:45 AM EDT Office Visit Hematology/Onco logy [facility] [address] [place] [phone] Sunil Bourgeois MD [address] [place] [address] 4 12:20 PM EDT Office Visit Family Practice [facility] [address] [facility] [place] [address] Scott Weldon MD [address] [place] [address] 4 12:30 PM EDT Office Visit Ophthalmology, [facility] [address] [place] [address] Rolan Self, DO [address] [place] [address] 4 11:15 AM EDT Hospital Encounter ENDO OSSC, Endoscopy Room [facility] [address] [place] [phone] Aj Pruett, DO [address] [place] [address] 4 11:15 AM EDT - 4 11:45 AM EDT Surgery ENDO O[facility], Endoscopy Room [facility] [address] [place] [address] Aj Pruett, DO [address] [place], [place] [address] ESOPHAGOGASTRODUODENOSCOPY (EGD), FLEXIBLE, TRANSORAL, DIAGNOSTIC 4 11:00 AM EST Telemedicine Pharmacy, [facility] [address] [facility] [place] [address] [facility] [place] [address] 4 1:40 PM EST Office Visit Nephrology, [facility] [place] [address] Jonathan Mathew MD 200 [facility] [place], [place] [address] 5 8:00 AM EST Office Visit Family Practice [facility] 132 [facility] [place] [address] Scott Weldon MD 132 [facility] [place] [address] 5 1:20 PM EST Office Visit Hepatology, [facility] [address] [facility] [place] [address] Jazzy Chu, DO [facility] [place] [address] 5 10:30 AM EST Telemedicine Gastroenterolog y, [facility] [address] [facility] [place] [address] Adam Bradshaw CRNP [address] [place] [address] Scheduled Procedures Name Priority Associated Diagnoses Date/Ti [...] encounter Medical Devices Implanted Type Area Associate Program Manager Device Identifier Shelf Expiration Date Model / Serial / Lot Neurostimul Intellis Adaptiv - [id number] - [id number] Implanted:Qty: 1 on 08/22/2022 by Rafia Small MD at OR [facility] N/A: Spine Lumbar [employer] 06/21/2023 [id number] / [id number] / Description:battery Medtronic Lead Kit 60 Cm Implanted:Qty: 1 on 08/22/2022 by Rafia Small MD at OR [facility] N/A: Spine Lumbar 02/01/2026 [id number] / / [id number] Medtronic Lead Kit 60cm Implanted:Qty: 1 on 08/22/2022 by Rafia Small MD at OR [facility] N/A: Spine Lumbar 03/21/2026 [id number] / / [id number] Envelope Tyrx Med Antibacteril - [id number] Implanted:Qty: 1 on 08/22/2022 by Rafia Small MD at OR [facility] N/A: Spine Lumbar [employer] 03/10/2023 [id number] / / [id number] Hemostatic Clip Res 235cm - [id number] Implanted:Qty: 4 on 10/05/2023 by Aj Pruett DO at ENDOSCOPY [facility] [facility] : ENDOSCOPY 02/03/2026 [id number] / / Hemostatic Clip Res 235cm - [id number] Implanted:Qty: 1 on 10/05/2023 by Aj Pruett, DO at ENDOSCOPY [facility] : ENDOSCOPY 02/02/2026 [id number] / / documented as of this encounter [...] Power of Attor narda? No Care Teams Roller Printer Relationship Specialty Start Date End Date Scott Weldon MD [address] [place] [address] PCP - General Family Medicine 08/03/18 documented as of this encounter
--- OUTSIDE RECORDS SUMMARY | 2024-05-13 05:15 | External Medical Summary | Summary of Care ---
Author Name Unknown Organization [facility] Address [address] [facility] [place] [address] Phone [phone] Care Team Providers Care Pill Maker Name Role Phone Scott Weldon MD Primary Care Provider + Encounter Details Date Type Department Care Team (Late st Contact Info) Description 02/02/2024 Result Scan Unspecified Department <No scans attached> Allergies Active Allergy Reactions Criticality Noted Date [...] less than 8.0% ([facility]) Use as directed. 07/30/2017 Active [...] suspected opioid overdose. Seek immediate medical attention. [email or web address] 1 Each 3 11/27/2022 Active [...] Overview: Per Obesity Taxonomy Coronary atherosclerosis of [place] coronary artery 09/15/2008 10/03/2008 Malaise and fatigue [...] mRNA, LNP-s, No Pre serve, 2-Dose Series (Unsilo) 11/08/2020,10/11/2020 HEP A - Hepatitis A (Adult > 18 yrs) 04/11/2011, 09/20/2010 Hepatitis B, 20+ yrs 07/05/2015 Pneumococcal Conjugate Vacci ne, 20-valent ([id number]) 03/13/2023 Pneumococcal Polysaccharide PPV23 (Pneumovax) 02/19/2018,03/09/2007 Seasonal [...] Description 4 12:00 PM EDT Telemedicine Psychiatry, [address] [address] Rj Mia MD [address] [place] [address] 4 11:00 AM EDT Laboratory Laboratory, [place] [address] [place] [address] [place], [facility] [address] [place] [address] 4 11:15 AM EDT Imaging Radiology, [place] [address] [place] [facility] [place] [address] 4 1:00 PM EDT Office Visit Pharmacy, [place] [address] [place] [facility] [place] [address] [place] [address] [facility] [address] 4 8:45 AM EDT Office Visit Hematology/Onco logy [place] [address] [place] [address] Sunil Bourgeois MD [address] [place], [place] [address] 4 12:20 PM EDT Office Visit Family Practice [facility] [address] [place] [address] Scott Weldon MD [address] [place] [address] 4 12:30 PM EDT Office Visit Ophthalmology, [facility] [address] [place] [address] Rolan Self, DO [address] [place] [address] 4 11:15 AM EDT Hospital Encounter ENDO OSSC, Endoscopy Room [facility] [address] [place] [address] Aj Pruett, DO [address] [place] [address] 4 11:15 AM EDT - 4 11:45 AM EDT Surgery ENDO O[facility], Endoscopy Room [facility] [address] [place] [phone] Aj Pruett, DO [address] [place] [address] ESOPHAGOGASTRODUODENOSCOPY (EGD), FLEXIBLE, TRANSORAL, DIAGNOSTIC 4 11:00 AM EST Telemedicine Pharmacy, [facility] 132 [place] [address] [facility] 132 [facility] [place] [address] 4 1:40 PM EST Office Visit Nephrology, [facility] [address] [place], [place] [address] Jonathan Mathew MD [address] [facility] [place], [place] [address] 5 8:00 AM EST Office Visit Family Practice [facility] [address] [facility] [place] [address] Scott Weldon MD [address] [place] [address] 5 1:20 PM EST Office Visit Hepatology, [facility] [address] [place] [address] Jazzy Chu DO [address] [place] [address] 5 10:30 AM EST Telemedicine Gastroenterolog y, [facility] [address] [place] [address] Adam Bradshaw CRNP [address] [place] [address] Scheduled Procedures Name Priority Associated Diagnoses Date/Ti fl ESOPHAGOGASTRODUODENOSCOPY ( EGD), FLEXIBLE, TRANSORAL, DIAGNOSTIC Portal hypertensive gastropathy (HCC) Multiple gastric polyps 03/25/2024 11:15 AM EDT COLONOSCOPY FLEXIBLE PROXIMA L DIAGNOSTIC Recall History of colonic polyps Health Maintenance Due Date Last Done Comments Cologuard 2017 Fecal Occult Blood Test 2017 Sigmoidoscopy 2017 Diabetic Eye Exam 01/16/2023 01/16/2022, , 12/14/2019, Additional history exists COVID-19 Vaccine (3 season) 2024 11/08/2020, 10/11/2020 Influenza Vaccine (FLU [...] this encounter Medical Devices Implanted Type Area Radio Television Announcer Device Identifier Shelf Expiration Date Model / Serial / Lot Neurostimul Intellis Adaptiv - [id number] - [id number] Implanted:Qty: 1 on 08/22/2022 by Rafia Small MD at OR [facility] N/A: Spine Lumbar [employer] 06/21/2023 [id number] / [id number] / Description:battery Medtronic Lead Kit 60 Cm Implanted:Qty: 1 on 08/22/2022 by Rafia Small MD at OR [facility] N/A: Spine Lumbar 02/01/2026 [id number] / / [id number] Medtronic Lead Kit 60cm Implanted:Qty: 1 on 08/22/2022 by Rafia Small MD at OR [facility] N/A: Spine Lumbar 03/21/2026 [id number] / / [id number] Envelope Tyrx Med Antibacteril - [id number] Implanted:Qty: 1 on 08/22/2022 by Rafia Small MD at OR [facility] N/A: Spine Lumbar [employer] 03/10/2023 [id number] / / [id number] Hemostatic Clip Res 235cm - [id number] Implanted:Qty: 4 on 10/05/2023 by Aj Pruett DO at ENDOSCOPY [facility] [employer] [facility] ENDOSCOPY 02/03/2026 [id number] / / Hemostatic Clip Res 235cm - [id number] Implanted:Qty: 1 on 10/05/2023 by Aj Pruett DO at ENDOSCOPY [facility] [employer] ENDOSCOPY 02/02/2026 [id number] / / documented as of this encounter Procedures Procedure Name Priority Date/Time Associated Diagnosis Comments OUTSIDE LAB RESULTS 02/02/2024 documented in this encounter Results * OUTSIDE LAB RESULTS (02/02/2024) 02/02/2024 No Physician Data Unknown LABORATORY documented in this encounter Advance Directives * [...] Power of Attor narda? No Care Teams Pill Maker Relationship Specialty Start Date End Date Scott Weldon MD [address] [place] [address] PCP - General Family Medicine 08/03/18 documented as of this encounter
--- OUTSIDE RECORDS SUMMARY | 2024-05-13 05:15 | External Medical Summary | Summary of Care ---
Author Name Unknown Organization [facility] Address [address] [facility] [place] [address] Phone [phone] Care Team Providers Care Portable Pinch Riveter Name Role Phone Scott Montoya MD Primary Care Provider + Reason for Visit * Reason Onset Date Comments Medication Refill 02/26/2024 Encounter Details Date Type Department Care Team (Late st Contact Info) Description 02/26/2024 Refill Family Practice [facility] [address] [facility] [place] [address] Scott Montoya MD 132 [facility] [place] [address] Allergies Active Allergy Reactions Criticality Noted Date Comments Naproxen Sodium Bleeding High 11/29/2013 Pollen 12/03/2022 Seasonal Food (See Comments) Anaphylaxis High 04/20/2019 Hot peppers (oils) Kiwi Extract Anaphylaxis High 04/20/2019 documented as of this encounter (statuses as of 02/26/2024) Medications Medication Sig Dispensed Refills Start Date [...] Strip 5 7 Active Insulin Infusion Pump (MINIMFitLinxx 630G INSULIN PUMP) KITIndications:Type 2 diabetes mellitus with hemoglobin A1c goal of less than 8.0% ([facility]) Use as directed. 8 [...] suspected opioid overdose. Seek immediate medical attention. [email or web address]/watch?v=v26c [email or web address] 1 Each 3 3 Active Loratadine 10 [...] once a week. 4 Patch 4 Active Eszopiclone 2 MG Oral Tablet (Lunesta) Take 1 Tablet by mouth at bedtime. 30 Tablet 4 Active Atenolol 25 MG Oral Tablet [...] than 8.0% ([facility]) Take 1 Tablet by mouth in the morning. 90 Tablet 3 4 Active Metoclopramide HCl 5 MG Oral Tablet (Reglan) Take 1 Tablet by mouth in the morning and 1 Tablet at noon and 1 Tablet in the evening. Take before meals. If needed for nausea. 300 Tablet 1 4 Active Metoclopramide HCl 5 MG Oral Tablet (Reglan) Take 1 Tablet by mouth in the morning and 1 Tablet at noon and 1 Tablet in the evening. Take before meals. If needed for nausea. 30 Tablet 4 02/26/20 24 Discontinu ed(Refill) documented as of this encounter (statuses as of 02/26/2024) Active Problems Problem Noted Date Diagnosed Date [...] as of this encounter (statuses as of 02/26/2024) Resolved Problems Problem Noted Date Diagnosed Date [...] Obesity Taxonomy Coronary atherosclerosis of [place] coronary artery 09/15/2008 10/03/2008 Malaise and fatigue [...] as of this encounter (statuses as of 02/26/2024) Immunizations Name Administration Dates Next Due COVID-19 mRNA, LNP-s, No Pre serve, 2-Dose Series (oohilove) 11/08/2020,10/11/2020 HEP A - Hepatitis A (Adult > 18 yrs) 04/11/2011, 09/20/2010 Hepatitis B, 20+ yrs 07/05/2015 Pneumococcal Conjugate Vacci ne, 20-valent ([id number]) 03/13/2023 Pneumococcal Polysaccharide PPV23 (Pneumovax) 02/19/2018,03/09/2007 Seasonal [...] Telephone Encounter - Scott Montoya MD - 02/26/2024 3:41 PM EDTSigned Prescriptions: Disp Refills Metoclopramide HCl 5 MG Oral Tablet (Darby*300 Ta*1 Sig: Take 1 Tablet by mouth in the morning and 1 Tablet at noon and 1 Tablet in the evening. Take before meals. If needed for nausea. Authorizing Provider: SCOTT MONTOYA * Telephone Encounter - Alison Ellison LPN - 02/26/2024 3:29 PM EDTPending Prescriptions: Disp Refills Metoclopramide HCl 5 MG Oral Tablet (Darby*30 Tab*0 Sig: Take 1 Tablet by mouth in the morning and 1 Tablet at noon and 1 Tablet in the evening. Take before meals. If needed for nausea. * Telephone Encounter - Alison Ellison LPN - 02/26/2024 3:29 PM EDT Did you pend patient's preferred pharmacy and medication before forwarding?yes Pharmacy: [facility] Pending Prescriptions: Disp Refills Metoclopramide HCl 5 MG Oral Tablet (Regl*30 Tab*0 Sig: Take 1 Tablet by mouth in the morning and 1 Tablet at noon and 1 Tablet in the evening. Take before meals. If needed for nausea. Last Visit: 02/12/2024 (in office), 09/08/2022 (telemedicine) Next Visit: 03/16/2024 If no future appointments scheduled, and last appointment is greater than a year ago, please schedule patient for a follow-up appointment Last date the medication was ordered: 10/21/23 Is this request for a controlled substance?No [...] Labs: Lab Results Component Value Date/Time CREAT 1.6 (H) 02/11/2024 11:19 AM CREAT 1.45 (A) 02/03/2024 12:00 AM CREAT 1.1 (H) 06/14/2020 09:00 AM POTASSIUM 4.0 02/11/2024 11:19 AM POTASSIUM 5.0 02/03/2024 12:00 AM POTASSIUM 4.2 06/14/2020 09:00 AM POTASSIUM 4.5 07/18/1996 10:50 AM TSH 0.73 04/06/2020 01:20 PM LDL 54 07/23/2023 12:00 PM LDL 62 12/12/2019 09:47 AM LDL NOT APPLICABLE 12/12/2019 09:47 AM ALT 22 02/11/2024 11:19 AM ALT 17 06/14/2020 09:00 AM HGBA1C 6.3 (H) 11/13/2023 10:07 AM HGBA1C 7.9 (H) 06/14/2020 09:00 AM * Telephone Encounter - Angel Turner - 02/26/2024 3:04 PM EDTPending Prescriptions: Disp Refills Metoclopramide HCl 5 MG Oral Tablet (Darby*30 Tab*0 Sig: Take 1Tablet by mouth in the morning and 1 Tablet at noon and 1 Tablet in the evening. Take before meals.If needed for nausea. documented in this encounter Plan of Treatment Upcoming Encounters Date Type Department Care Team (Latest Contact Info) Description 4 12:00 PM EDT Telemedicine Psychiatry, [address] [address] Rj Mai MD [address] [place] [address] 4 11:00 AM EDT Laboratory Laboratory, [place] [address] [place] [id number] [place], [facility] [address] [place] [address] 4 11:15 AM EDT Imaging Radiology, [place] [address] [place] [address] 4 1:00 PM EDT Office Visit Pharmacy, [place] [address] [facility], [place] [address] [facility] [address] [facility], [place] [address] 4 8:45 AM EDT Office [facility] [address] [place] [address] Sunil Bourgeois MD [address] [place] [address] 4 12:20 PM EDT Office Visit Family Practice [facility] [address] [place] [address] Scott Montoya MD [address] [place] [address] 4 12:30 PM EDT Office Visit Ophthalmology, [facility] [address] [place] [address] Rolan Self, DO [address] [place] [address] 4 11:15 AM EDT Hospital Encounter [facility]O [facility], Endoscopy Room [facility] [address] [place] [address] Aj Pruett, DO [address] [place] [address] 4 11:15 AM EDT - 4 11:45 AM EDT Surgery ENDO [facility], Endoscopy Room [facility] [address] [place] [phone] Aj Pruett, DO [address] [place] [address] ESOPHAGOGASTRODUODENOSCOPY (EGD), FLEXIBLE, TRANSORAL, DIAGNOSTIC 4 11:00 AM EST Telemedicine Pharmacy, [facility] [address] [facility] [place] [address] [facility] [address] [facility] [place] [address] 4 1:40 PM EST Office Visit Nephrology, [facility] [address] [place] [address] Jonathan Mathew MD [address] [place], [place] [address] 5 8:00 AM EST Office Visit Family Practice [facility] [address] [facility] [place] [address] Scott Montoya MD [address] [facility] [place] [address] 5 1:20 PM EST Office Visit Hepatology, [facility] [address] [facility] [place] [address] Jazzy Chu DO [facility] [place] [address] 5 10:30 AM EST Telemedicine Gastroenterolog y, [facility] 132 [facility] [place] [address] Adam Bradshaw CRNP [address] [place] [address] Scheduled Procedures Name Priority Associated Diagnoses Date/Ti [...] encounter Medical Devices Implanted Type Area Maintenance Tech Device Identifier Shelf Expiration Date Model / Serial / Lot Neurostimul Intellis Adaptiv - [id number] - [id number] Implanted:Qty: 1 on 08/22/2022 by Rafia Small MD at OR [facility] N/A: Spine Lumbar [employer] 06/21/2023 [id number] / [id number] / Description:battery Medtronic Lead Kit 60 Cm Implanted:Qty: 1 on 08/22/2022 by Rafia Small MD at OR [facility] N/A: Spine Lumbar 02/01/2026 [id number] / / [id number] Medtronic Lead Kit 60cm Implanted:Qty: 1 on 08/22/2022 by Rafia Small MD at OR [facility] N/A: Spine Lumbar 03/21/2026 [id number] / / [id number] Envelope Tyrx Med Antibacteril - [id number] Implanted:Qty: 1 on 08/22/2022 by Rafia Small MD at OR [facility] N/A: Spine Lumbar [employer] 03/10/2023 [id number] / / [id number] Hemostatic Clip Res 235cm - [id number] Implanted:Qty: 4 on 10/05/2023 by Aj Pruett DO at ENDOSCOPY [facility] [employer] : ENDOSCOPY 02/03/2026 [id number] / / Hemostatic Clip Res 235cm - [id number] Implanted:Qty: 1 on 10/05/2023 by Aj Pruett DO at ENDOSCOPY [facility] : ENDOSCOPY 02/02/2026 [id number] / / documented as of this encounter [...] Power of Attor narda? No Care Teams Portable Pinch Riveter Relationship Specialty Start Date End Date Scott Montoay MD 132 [facility] [place] [address] PCP - General Family Medicine 08/03/18 documented as of this encounter
--- OUTSIDE RECORDS SUMMARY | 2024-05-13 05:16 | External Medical Summary | Summary of Care ---
Author Name Unknown Organization [facility] Address [address] [facility] [place] [address] Phone [phone] Care Team Providers Care Command And Control Name Role Phone Scott Weldon MD Primary Care Provider + Reason for Visit * Reason Onset Date Comments Med Request 02/18/2024 Encounter Details Date Type Department Care Team (Late st Contact Info) Description 02/18/2024 Telephone Family Practice [facility] [address] [place] [address] Scott Weldon MD [address] [place] [address] Med Request Allergies Active Allergy Reactions Criticality Noted Date Comments Naproxen Sodium Bleeding High 11/29/2013 Pollen 12/03/2022 Seasonal Food (See Comments) Anaphylaxis High 04/20/2019 Hot peppers (oils) Kiwi Extract Anaphylaxis High 04/20/2019 documented as of this encounter (statuses as of 02/19/2024) Medications Medication Sig Dispensed Refills Start Date [...] of less than 8.0% ([facility]) Use as directed. 8 Active [...] suspected opioid overdose. Seek immediate medical attention. [email or web address]://www.Pattern [email or web address]/watch?v=v26c [email or web address] 1 Each 3 3 Active Loratadine 10 [...] NEEDED FOR NAUSEA 30 Tablet 4 Active Metoclopramide HCl 5 MG Oral Tablet (Reglan) Take 1 Tablet by mouth in the morning and 1 Tablet at noon and 1 Tablet in the evening. Take before meals. If needed for nausea. 30 Tablet 4 Active Albuterol Sulfate HFA [...] with breakfast. 90 Tablet 3 4 Active Furosemide 40 MG Oral Tablet (Lasix) Take 1 Tablet by mouth every other day. 50 Tablet 1 4 Active Furosemide 40 MG Oral Tablet (Lasix) Take 1 Tablet by mouth every other day. 4 02/19/20 24 Discontinu ed(Refill) documented as of this encounter (statuses as of 02/19/2024) Active Problems Problem Noted Date Diagnosed Date [...] as of this encounter (statuses as of 02/19/2024) Resolved Problems Problem Noted Date Diagnosed Date [...] Overview: Per Obesity Taxonomy Coronary atherosclerosis of [place] coronary artery 09/15/2008 10/03/2008 Malaise and fatigue [...] as of this encounter (statuses as of 02/19/2024) Immunizations Name Administration Dates Next Due COVID-19 mRNA, LNP-s, No Pre serve, 2-Dose Series ([employer]) 11/08/2020,10/11/2020 HEP A - Hepatitis A (Adult > 18 yrs) 04/11/2011, 09/20/2010 Hepatitis B, 20+ yrs 07/05/2015 Pneumococcal Conjugate Vacci ne, 20-valent ([id number]) 03/13/2023 Pneumococcal Polysaccharide PPV23 (Pneumovax) 02/19/2018,03/09/2007 Seasonal [...] encounter Miscellaneous Notes * Telephone Encounter - Lisandra Aponte, [facility] - 02/18/2024 11:07 AM EDT Patient calling requesting the following medication below that is listed as "Historical". The following information was provided: Medication Name: Furosemide Strength: 40mg Directions: 1 tablet every other day Preferred Quantity: 45 Previous Prescriber: Fatemeh Preferred Pharmacy: [facility] Please review and approve if appropriate. Thank you, Lisandra Aponte Etiology Teacher II [facility] ([facility]) (formerly Telepharmacy) 02/18/2024 11:08 AM documented in this encounter Plan of Treatment Upcoming Encounters Date Type Department Care Team (Latest Contact Info) Description 4 11:00 AM EDT Laboratory Laboratory, [place] [address] [place] [address] [facility] [address] [place] [address] 4 2:15 PM EDT Office Visit Hematology/Onco logy [facility] [address] [facility] [place] [phone] Sunil Bourgeois MD [address] [facility] [place] [address] 4 12:00 PM EDT Telemedicine Psychiatry, [facility] [address] [facility] [place] [address] Rj Mai MD [address] [place] [address] 4 1:00 PM EDT Office Visit Pharmacy, [place] [address] [place] [address] [facility] [address] [place] [address] 4 12:20 PM EDT Office Visit Family Practice [facility] [address] [place] [address] Scott Weldon MD 132 [place] [address] 4 12:30 PM EDT Office Visit Ophthalmology, [facility] [address] [place] [address] Rolan Self, DO [address] [place] [address] 4 11:15 AM EDT Hospital Encounter ENDO [facility], Endoscopy Room [facility] [address] [place] [phone] Aj Pruett, DO [address] [place], [place] [address] 4 11:15 AM EDT - 4 11:45 AM EDT Surgery ENDO [facility], Endoscopy Room [facility] [address] [place], [place] [phone] Aj Pruett, DO [address] [place], [place] [address] ESOPHAGOGASTRODUODENOSCOPY (EGD), FLEXIBLE, TRANSORAL, DIAGNOSTIC 4 11:00 AM EST Telemedicine Pharmacy, [facility] [place] [address] [facility] [address] [place] [address] 4 1:40 PM EST Office Visit Nephrology, [facility] [address] [place] [address] Jonathan Mathew MD [address] [place] [address] 5 8:00 AM EST Office Visit Family Practice [facility] [address] [place] [address] Scott Weldon MD [address] [place] [address] 5 1:20 PM EST Office Visit Hepatology, [facility] [address] [place] [address] Jazzy ChuDO [address] [place] [address] Scheduled Procedures Name Priority Associated Diagnoses Date/Ti [...] Additional history exists GFR 02/10/2025 02/11/2024, 01/07, 01/18/2024, Additional history exists Pap Smear 09/07/2026 09/08/2023, [...] this encounter Medical Devices Implanted Type Area Reconstructive Surgeon Device Identifier Shelf Expiration Date Model / Serial / Lot Neurostimul Intellis Adaptiv - [id number] - [id number] Implanted:Qty: 1 on 08/22/2022 by Rafia Small MD at OR [facility] N/A: Spine Lumbar [employer] 06/21/2023 [id number] / [id number] / Description:battery Medtronic Lead Kit 60 Cm Implanted:Qty: 1 on 08/22/2022 by Rfaia Small MD at OR [facility] N/A: Spine Lumbar 02/01/2026 [id number] / / [id number] Medtronic Lead Kit 60cm Implanted:Qty: 1 on 08/22/2022 by Rafia Small MD at OR [facility] N/A: Spine Lumbar 03/21/2026 [id number] / / [id number] Envelope Tyrx Med Antibacteril - [id number] Implanted:Qty: 1 on 08/22/2022 by Rafia Small MD at OR [facility] N/A: Spine Lumbar [employer] 03/10/2023 [id number] / / [id number] Hemostatic Clip Res 235cm - [id number] Implanted:Qty: 4 on 10/05/2023 by Aj Pruett, DO at ENDOSCOPY [facility] [employer] : ENDOSCOPY 02/03/2026 [id number] / / Hemostatic Clip Res 235cm - [id number] Implanted:Qty: 1 on 10/05/2023 by Aj Pruett, DO at ENDOSCOPY [facility] : ENDOSCOPY 02/02/2026 [id number] / / documented as of this encounter [...] Power of Attor narda? No Care Teams Command And Control Relationship Specialty Start Date End Date Scott Weldon MD 132 [facility] [place] [address] PCP - General Family Medicine 08/03/18 documented as of this encounter
--- OUTSIDE RECORDS SUMMARY | 2024-05-13 05:16 | External Medical Summary | Summary of Care ---
Author Name Unknown Organization [facility] Address [address] [place] [address] Phone [phone] Care Team Providers Care Shoe Turner Name Role Phone Scott Weldon MD Primary Care Provider + Reason for Visit * Reason Onset Date Comments Medication Refill 02/18/2024 Encounter Details Date Type Department Care Team (Late st Contact Info) Description 02/18/2024 Refill Psychiatry, [address] [address] Jamila Lovell CRNP [address] [place] [address] Allergies Active Allergy Reactions Criticality Noted Date Comments Naproxen Sodium Bleeding High 11/29/2013 Pollen 12/03/2022 Seasonal Food (See Comments) Anaphylaxis High 04/20/2019 Hot peppers (oils) Kiwi Extract Anaphylaxis High 04/20/2019 documented as of this encounter (statuses as of 02/18/2024) Medications Medication Sig Dispensed Refills Start Date [...] [facility]) Use as directed. 8 Active [...] suspected opioid overdose. Seek immediate medical attention. https://www.Yeahka.com/watch?v=v26c Tzi5TpM 1 Each 3 3 Active Loratadine 10 [...] NEEDED FOR NAUSEA 30 Tablet 4 Active Furosemide 40 MG Oral Tablet (Lasix) Take 1 Tablet by mouth every other day. 4 Active Metoclopramide HCl 5 MG Oral [...] with breakfast. 90 Tablet 3 4 Active traZODone HCl 100 MG Oral Tablet (Desyrel) Take 1-2 Tablets by mouth at bedtime. 180 Tablet 1 4 Active Escitalopram Oxalate 20 MG Oral Tablet (Lexapro) Take 1 Tablet by mouth in the morning. 90 Tablet 1 4 02/18/20 24 Discontinu ed(Refill) traZODone HCl 100 MG Oral Tablet (Desyrel) Take 1-2 Tablets by mouth at bedtime. 180 Tablet 1 4 02/18/20 24 Discontinu ed(Refill) documented as of this encounter (statuses as of 02/18/2024) Active Problems Problem Noted Date Diagnosed Date [...] as of this encounter (statuses as of 02/18/2024) Resolved Problems Problem Noted Date Diagnosed Date [...] Overview: Per Obesity Taxonomy Coronary atherosclerosis of [place] coronary artery 09/15/2008 10/03/2008 Malaise and fatigue [...] as of this encounter (statuses as of 02/18/2024) Immunizations Name Administration Dates Next Due COVID-19 mRNA, LNP-s, No Pre serve, 2-Dose Series ([employer]) 11/08/2020,10/11/2020 HEP A - Hepatitis A (Adult > 18 yrs) 04/11/2011, 09/20/2010 Hepatitis B, 20+ yrs 07/05/2015 Pneumococcal Conjugate Vacci ne, 20-valent ([id number]) 03/13/2023 Pneumococcal Polysaccharide PPV23 (Pneumovax) 02/19/2018,03/09/2007 Seasonal [...] Notes * Telephone Encounter - Fito Fernandez, [facility] - 02/18/2024 11:28 AM EDTSigned Prescriptions: Disp Refills traZODone HCl 100 MG Oral Tablet (Desyrel) 180 Ta*1 Sig: Take 1-2 Tablets by mouth at bedtime. Authorizing Provider: JAMILA LOVELL Ordering User: FITO HILLMAN * Telephone Encounter - Lisandra Aponte CPhT - 02/18/2024 11:06 AM EDT Please reroute Rx to [facility]. Pending Prescriptions: Disp Refills traZODone HCl 100 MG Oral Tablet (Desyrel)180 Ta*1 Sig: Take 1-2 Tablets by mouth at bedtime. Last Visit: Visit date not found (in office), Visit date not found (telemedicine) Visit date not found If no future appointments scheduled, and last appointment is greater than a year ago, please schedule patient for a follow-up appointment Last date the medication was ordered: [id number] Patient Phone Numbers Labs: Lab Results Component Value Date/Time CREAT 1.6 (H) 02/11/2024 11:19 AM CREAT 1.1 (H) 06/14/2020 09:00 AM POTASSIUM 4.0 02/11/2024 11:19 AM POTASSIUM 4.2 06/14/2020 09:00 AM POTASSIUM [...] Description 4 11:00 AM EDT Laboratory Laboratory, [place] [address] [place] [address] [facility] [address] [place] [address] 4 2:15 PM EDT Office Visit Hematology/Onco logy [facility] 200 [facility] [place] [address] Sunil Bourgeois MD [address] [facility] [place] [address] 4 12:00 PM EDT Telemedicine Psychiatry, [facility] [address] [facility] [place] [address] Rj Mai MD [address] [place] [address] 4 1:00 PM EDT Office Visit Pharmacy, [place] [address] [place] [address] [facility] [address] [place] [address] 4 12:20 PM EDT Office Visit Family Practice [facility] 132 [facility] [place] [address] Scott Weldon MD 132 [facility] [place] [address] 4 12:30 PM EDT Office Visit Ophthalmology, [facility] 132 [facility] [place] [address] Rolan Self, DO 21 [facility] [place] [address] 4 11:15 AM EDT Hospital Encounter ENDO [facility], Endoscopy Room [facility] [address] [place], [place] [address] Aj Pruett, DO [address] [place], [place] [address] 4 11:15 AM EDT - 4 11:45 AM EDT Surgery ENDO [facility], Endoscopy Room [facility] [address] [place], [place] [phone] Aj Pruett, DO [address] [place], [place] [address] ESOPHAGOGASTRODUODENOSCOPY (EGD), FLEXIBLE, TRANSORAL, DIAGNOSTIC 4 11:00 AM EST [facility] [address] [place] [address] [facility] [address] [place], [place] [address] 4 1:40 PM EST Office Visit Nephrology, [facility] [address] [facility] [place] [address] Jonathan Mathew MD [address] [facility] [place] [address] 5 8:00 AM EST Office Visit Family Practice [facility] [address] [place] [address] Scott Weldon MD [address] [place] [address] Scheduled Procedures Name Priority Associated Diagnoses Date/Ti [...] this encounter Medical Devices Implanted Type Area Sap Sd Analyst Device Identifier Shelf Expiration Date Model / Serial / Lot Neurostimul Intellis Adaptiv - [id number] - [id number] Implanted:Qty: 1 on 08/22/2022 by Rafia Small MD at OR [facility] N/A: Spine Lumbar [employer] 06/21/2023 [id number] / [id number] / Description:battery Medtronic Lead Kit 60 Cm Implanted:Qty: 1 on 08/22/2022 by Rafia Small MD at OR [facility] N/A: Spine Lumbar 02/01/2026 [id number] / / [id number] Medtronic Lead Kit 60cm Implanted:Qty: 1 on 08/22/2022 by Rafia Small MD at OR [facility] N/A: Spine Lumbar 03/21/2026 [id number] / / [id number] Envelope Tyrx Med Antibacteril - [id number] Implanted:Qty: 1 on 08/22/2022 by Rafia Small MD at OR [facility] N/A: Spine Lumbar [employer] 03/10/2023 [id number] / / [id number] Hemostatic Clip Res 235cm - [id number] Implanted:Qty: 4 on 10/05/2023 by Aj Pruett DO at ENDOSCOPY [facility] [employer] : ENDOSCOPY 02/03/2026 [id number] / / Hemostatic Clip Res 235cm - [id number] Implanted:Qty: 1 on 10/05/2023 by Aj Pruett DO at ENDOSCOPY [facility] : ENDOSCOPY 02/02/2026 [id number] / / documented as of this encounter [...] Power of Attor narda? No Care Teams Shoe Turner Relationship Specialty Start Date End Date Scott Weldon MD 132 [facility] [place] [address] PCP - General Family Medicine 08/03/18 documented as of this encounter
--- OUTSIDE RECORDS SUMMARY | 2024-05-13 05:16 | External Medical Summary | Summary of Care ---
Author Name Unknown Organization [facility] Address [address] [place] [address] Phone [phone] Care Team Providers Care Frame Changer Name Role Phone Scott Weldon MD Primary Care Provider + Reason for Visit * Reason Onset Date Comments Medication Refill 02/18/2024 Encounter Details Date Type Department Care Team (Late st Contact Info) Description 02/18/2024 Refill Psychiatry, [address] [address] Kandace Avina MD [address] [place] [address] Allergies Active Allergy Reactions Criticality [...] hemoglobin A1c goal of less than 8.0% ([facility]) Use as directed. 8 Active CPAP [...] suspected opioid overdose. Seek immediate medical attention. [email or web address]?v=v26c [email or web address] 1 Each 3 3 Active Loratadine 10 [...] hemoglobin A1c goal of less than 8.0% ([facility]),DM type 2, not at goal (HCC) [...] the morning. 90 Tablet 1 4 Active Escitalopram Oxalate 20 [...] Overview: Per Obesity Taxonomy Coronary atherosclerosis of [place] coronary artery 09/15/2008 10/03/2008 Malaise and fatigue [...] mRNA, LNP-s, No Pre serve, 2-Dose Series (SportP[employer]uit) 11/08/2020,10/11/2020 HEP A - Hepatitis A (Adult > 18 yrs) 04/11/2011, 09/20/2010 Hepatitis B, 20+ yrs 07/05/2015 Pneumococcal Conjugate Vacci ne, 20-valent ([id number]) 03/13/2023 Pneumococcal Polysaccharide PPV23 (Pneumovax) 02/19/2018,03/09/2007 Seasonal [...] Telephone Encounter - Kandace Avina MD - 02/18/2024 11:36 AM EDT Signed Prescriptions: Disp Refills Escitalopram Oxalate 20 MG Oral Tablet (Le*90 Tab*1 Sig: Take 1 Tablet by mouth in the morning. Authorizing Provider: KANDACE AVINA * Telephone Encounter - Mariano Fernandez [facility] - 02/18/2024 11:26 AM EDTPending Prescriptions: Disp Refills Escitalopram Oxalate 20 MG Oral Tablet (Le*90 Tab*1 Sig: Take 1 Tablet by mouth in the morning. * Telephone Encounter - Mariano Fernandez [facility] - 02/18/2024 11:[address] [facility] is not delegated to approve refills for medications from this specialty. Please approve if appropriate. Thank You, Mariano Patel [facility] Clinical Pharmacist Centralized Clinical Pharmacy Services (CCPS) 02/18/2024, 11:26 AM * Telephone Encounter - Lisandra Aponte CPhT - 02/18/2024 11:03 AM EDT Patient needs ordered today for expedited delivery Did you pend patient's preferred pharmacy and medication before forwarding?yes Pharmacy: [facility] Pending Prescriptions: Disp Refills Escitalopram Oxalate 20 MG Oral Tablet (L*90 Tab*1 Sig: Take 1 Tablet by mouth in the morning. Last Visit: 02/12/2024 (in office), 09/08/2022 (telemedicine) Next Visit: 03/16/2024 If no future appointments scheduled, and last appointment is greater than a year ago, please schedule patient for a follow-up appointment Last date the medication was ordered: [id number] Is this request for a controlled substance?No [...] Description 4 11:00 AM EDT Laboratory Laboratory, [facility] [address] [place] [phone] [facility] [address] [place] [address] 4 2:15 PM EDT Office Visit Hematology/Onco logy [facility] [address] [facility] [place] [phone] Sunil Bourgeois MD [address] [facility] [place] [address] 4 12:00 PM EDT Telemedicine Psychiatry, [facility] [address] [facility] [place] [address] Kandace Avina MD [address] [place] [address] 4 1:00 PM EDT Office Visit Pharmacy, [facility] [address] [place] [address] [facility] [address] [place] [address] 4 12:20 PM EDT Office Visit Family Practice [facility] 132 [facility] [place] [address] Scott Weldon MD [address] [place] [address] 4 12:30 PM EDT Office Visit Ophthalmology, [facility] [address] [place] [address] Rolan Self, DO [address] [place] [address] 4 11:15 AM EDT Hospital Encounter ENDO [facility], Endoscopy Room [facility] [address] [place], [place] [phone] Aj Pruett, DO [address] [place] [address] 4 11:15 AM EDT - 4 11:45 AM EDT Surgery ENDO [facility], Endoscopy Room [facility] [address] [place] [phone] Aj Pruett, DO [address] [place] [address] ESOPHAGOGASTRODUODENOSCOPY (EGD), FLEXIBLE, TRANSORAL, DIAGNOSTIC 4 11:00 AM EST Telemedicine Pharmacy, [facility] [address] [place] [address] [facility] [address] [place] [address] 4 1:40 PM EST Office Visit Nephrology, [facility] [address] [place] [address] Jonathan Mathew MD [address] [place] [address] 5 8:00 AM EST Office Visit Family Practice [facility] [address] [place] [address] Scott Weldon MD [address] [place] [address] Scheduled Procedures Name Priority Associated Diagnoses Date/Ti [...] encounter Medical Devices Implanted Type Area Senior Portfolio Manager Device Identifier Shelf Expiration Date Model / Serial / Lot Neurostimul Intellis Adaptiv - [id number] - [id number] Implanted:Qty: 1 on 08/22/2022 by Rafia Small MD at OR [facility] N/A: Spine Lumbar [employer] 06/21/2023 [id number] / [id number] / Description:battery Medtronic Lead Kit 60 Cm Implanted:Qty: 1 on 08/22/2022 by Rafia Small MD at OR [facility] N/A: Spine Lumbar 02/01/2026 [id number] / / [id number] Medtronic Lead Kit 60cm Implanted:Qty: 1 on 08/22/2022 by Rafia Small MD at OR [facility] N/A: Spine Lumbar 03/21/2026 [id number] / / [id number] Envelope Tyrx Med Antibacteril - [id number] Implanted:Qty: 1 on 08/22/2022 by Rafia Small MD at OR [facility] N/A: Spine Lumbar [employer] 03/10/2023 [id number] / / [id number] Hemostatic Clip Res 235cm - [id number] Implanted:Qty: 4 on 10/05/2023 by Aj Pruett DO at ENDOSCOPY [facility] : ENDOSCOPY 02/03/2026 [id number] / / Hemostatic Clip Res 235cm - [id number] Implanted:Qty: 1 on 10/05/2023 by Aj Pruett, DO at ENDOSCOPY [facility] : ENDOSCOPY 02/02/2026 [id number] / / documented as of this encounter [...] Power of Attor narda? No Care Teams Frame Changer Relationship Specialty Start Date End Date Scott Weldon MD 132 [facility] [place] [address] PCP - General Family Medicine 08/03/18 documented as of this encounter
--- OUTSIDE RECORDS SUMMARY | 2024-05-13 05:16 | External Medical Summary | Summary of Care ---
Author Name Unknown Organization [facility] Address [address] [facility] [place] [address] Phone [phone] Care Team Providers Care Administrative Services Director Name Role Phone Scott Montoya MD Primary Care Provider + Reason for Visit * Reason Comments eRx-Medication Refill Encounter Details Date Type Department Care Team (Late st Contact Info) Description 02/11/2024 Refill Family Practice [facility] 132 [facility] [place] [address] Zulema Caro MD 132 [facility] [place] [address] Anxiety*; Bilateral low back pain with sciatica, sciatica laterality unspecified, unspecified chronicity; Type 2 diabetes mellitus with hemoglobin A1c goal of less than 8.0% ([facility]) Allergies Active Allergy Reactions Criticality Noted Date Comments Naproxen Sodium Bleeding High 11/29/2013 Pollen 12/03/2022 Seasonal Food (See Comments) Anaphylaxis High 04/20/2019 Hot peppers (oils) Kiwi Extract Anaphylaxis High 04/20/2019 documented as of this encounter (statuses as of 02/14/2024) Medications Medication Sig Dispensed Refills Start Date End Date Status ONETOUCH ULTRASOFT LANCETS MISCIndications:DM type 2, not at goal ([facility]) check FS 6 times [...] Strip 5 7 Active Insulin Infusion Pump (MINIMHealthcentrix 630G INSULIN PUMP) KITIndications:Type 2 diabetes mellitus with hemoglobin A1c goal of less than 8.0% ([facility]) Use as directed. 8 [...] suspected opioid overdose. Seek immediate medical attention. [email or web address] [email or web address]/[email or web address]?v=[email or web address] 1 Each 3 3 Active Loratadine 10 [...] the morning. 90 Tablet 1 4 Active Furosemide 40 MG [...] OF BREATH 18 g 5 4 Active Baclofen 10 MG Oral [...] mouth at bedtime. 30 Tablet 4 Active Pregabalin 100 MG Oral Capsule (Lyrica)Indications :Bilateral low back pain with sciatica, sciatica laterality unspecified, unspecified chronicity Take 1 Capsule by mouth in the morning and 1 Capsule at noon and 1 Capsule before bedtime. 300 Capsule 1 4 Active hydrOXYzine HCl 25 MG Oral TabletIndications:A nxiety TAKE 1 TAB DURING DAY EVERY 4-6 HOURS NEEDED FOR ANXIETY &2 TABS AT BEDTIME NEEDED FOR ANXIETY 450 Tablet 1 4 Active metFORMIN HCl 1000 MG Oral Tablet (Glucophage)Indicat ions:Type 2 diabetes mellitus with hemoglobin A1c goal of less than 8.0% ([facility]) Take 1 Tablet by mouth daily with breakfast. 90 Tablet 3 4 Active Pantoprazole Sodium 40 MG Oral Tablet Delayed Release (Protonix)Indicatio ns:Esophageal varices without bleeding, unspecified esophageal varices type (HCC),Colitis Take 1 Tablet by mouth in the morning. 90 Tablet 3 4 02/12/20 24 Discontinu ed(Refill) Atorvastatin Calcium 40 MG Oral Tablet (Lipitor)Indication s:Dyslipidemia, goal LDL below 100 TAKE 1 TABLET BY MOUTH EVERY DAY IN THE MORNING 90 Tablet 3 4 02/12/20 24 Discontinu ed(Refill) Magnesium Oxide -Mg Supplement 400 (240 Mg) MG Oral Tablet (Mag-Ox)Indications :Hypomagnesemia Take 1 Tablet by mouth in the morning. 90 Tablet 3 4 02/12/20 24 Discontinu ed(Refill) Empagliflozin 10 MG Oral Tablet (Jardiance)Indicati ons:Type 2 diabetes mellitus with hemoglobin A1c goal of less than 8.0% (HCC) Take 1 Tablet by mouth in the morning. Please get blood work completed the week of December 06. 30 Tablet 5 4 02/12/20 24 Discontinu ed(Refill) Potassium Chloride Laura ER 20 MEQ Oral Tablet Extended Release Take 1 Tablet by mouth in the morning. 90 Tablet 1 4 02/12/20 24 Discontinu ed(Refill) metFORMIN HCl 1000 MG Oral Tablet (Glucophage)Indicat ions:Type 2 diabetes mellitus with hemoglobin A1c goal of less than 8.0% (HCC) Take 1 Tablet by mouth daily with breakfast. 90 Tablet 1 4 02/13/20 24 Discontinu ed(Refill) Pregabalin 100 MG Oral Capsule (Lyrica)Indications :Bilateral low back pain with sciatica, sciatica laterality unspecified, unspecified chronicity TAKE 1 CAPSULE BY MOUTH EVERY DAY IN THE MORNING , AT NOON, AND BEFORE BEDTIME 270 Capsule 1 4 02/13/20 24 Discontinu ed(Refill) hydrOXYzine HCl 25 MG Oral Tablet TAKE 1 TAB DURING DAY EVERY 4-6 HOURS NEEDED FOR ANXIETY &2 TABS AT BEDTIME NEEDED FOR ANXIETY 450 Tablet 1 4 02/13/20 24 Discontinu ed(Refill) documented as of this encounter (statuses as of 02/14/2024) Active Problems Problem Noted Date Diagnosed Date [...] as of this encounter (statuses as of 02/14/2024) Resolved Problems Problem Noted Date Diagnosed Date [...] Overview: Per Obesity Taxonomy Coronary atherosclerosis of ewiiaapaayp coronary artery 09/15/2008 10/03/2008 Malaise and fatigue [...] as of this encounter (statuses as of 02/14/2024) Immunizations Name Administration Dates Next Due COVID-19 mRNA, LNP-s, No Pre serve, 2-Dose Series (Weixinhai) 11/08/2020,10/11/2020 HEP A - Hepatitis A (Adult > 18 yrs) 04/11/2011, 09/20/2010 Hepatitis B, 20+ yrs 07/05/2015 Pneumococcal Conjugate Vacci ne, 20-valent (Cyucbpk55) 03/13/2023 Pneumococcal Polysaccharide PPV23 (Pneumovax) 02/19/2018,03/09/2007 Seasonal [...] Telephone Encounter - Scott Montoya MD - 02/14/2024 9:31 PM EDTSigned Prescriptions: Disp Refills Pregabalin 100 MG Oral Capsule (Lyrica) 300 Ca*1 Sig: Take 1 Capsule by mouth in the morning and 1 Capsule at noon and 1 Capsule before bedtime.Authorizing Provider: SCOTT MONTOYA hydrOXYzine HCl 25 MG Oral Tablet 450 Ta*1 Sig: TAKE 1 TAB DURING DAY EVERY4-6 HOURS NEEDED FOR ANXIETY &2 TABS AT BEDTIME NEEDED FOR ANXIETYAuthorizing Provider: SCOTT MONTOYA metFORMIN HCl 1000 MG Oral Tablet (Glucoph*90 Tab*3 Sig: Take 1 Tablet by mouth daily with breakfast.Authorizing Provider: SCOTT MONTOYA * Telephone Encounter - Kathie Hills RN - 02/13/2024 4:11 PM EDT Called pt, She does want Metformin and Hydroxyzine to go to mail order as well . pended * Telephone Encounter - Scott Montoya MD - 02/13/2024 3:04 PM EDT [facility]. Is that where she wanted Hydroxyzine and metformin sent as well? (Sent to [facility] 02/11) * Telephone Encounter - Lola Land CPhT - 02/13/2024 9:01 AM EDT Patient confirmed she is still taking this medication and needs it resent to the [facility] Thank you, Lola Land [facility] Set Illustrator Centralized Clinical Pharmacy Services ([facility]PS) 02/13/2024, 9:01 AM * Telephone Encounter - Kathie Hills RN - 02/13/2024 8:22 AM EDT Called and left message on cell phone for return call. * Telephone Encounter - Scott Montoya MD - 02/12/2024 5:16 PM EDTSigned Prescriptions: Disp Refills Pregabalin 100 MG Oral Capsule (Lyrica) 270 Ca*1 Sig: TAKE 1 CAPSULE BY MOUTH EVERY DAY IN THE MORNING , AT NOON, AND BEFORE BEDTIME Authorizing Provider: SCOTT MONTOYA * Telephone Encounter - Scott Montoya MD - 02/12/2024 5:14 PM EDT Nursing-please double check with patient that she is still taking. I think she is. If she is not, cancel w/pharmacy. * Telephone Encounter - Glenis Gregorio, [facility] - 02/12/2024 3:45 PM EDTPending Prescriptions: Disp Refills Pregabalin 100 MG Oral Capsule [Pharmacy M*270 Ca* Sig: TAKE 1 CAPSULE BY MOUTH EVERY DAY IN THE MORNING , AT NOON, AND BEFORE BEDTIME * Telephone Encounter - Glenis Gregorio [facility] - 02/12/2024 3:41 PM EDT Pharmacy requesting new rx for Pregabalin Medication d/c'ed today for reason 'med list cleanup' by [employer] Please approve if continuation is appropriate. I have reviewed the patients controlled substance dispensing history in the Prescription Drug Monitoring Program in compliance with the [facility] regulations before prescribing a controlled substance. PDMP checked on 02/12/2024. Pending Prescriptions: Disp Refills Pregabalin 100 MG Oral Capsule (Lyrica) [*270 Ca* Sig: TAKE 1 CAPSULE BY MOUTH EVERY DAY IN THE MORNING , AT NOON, AND BEFORE BEDTIME Last Visit: 01/28/2024 (in office), 09/08/2022 (telemedicine) Next Visit: 03/16/2024 Date medication was last filled:10/20 Date medication is due for refill: 01/17 Pharmacy: [id number] [address] [facility] Is this request for a controlled substance? [...] Review. Please approve if appropriate. Thank you, Glenis Gregorio, PharmD Clinical Pharmacist Centralized Clinical Pharmacy Services ([facility]PS) 02/12/24 3:45 PM [phone] documented in this encounter Plan of Treatment Upcoming Encounters Date Type Department Care Team (Latest Contact Info) Description 4 11:00 AM EDT Laboratory Laboratory, [facility] [address] [place] [facility] [place] [phone] [facility] [address] [place] [address] 4 2:15 PM EDT Office Visit Hematology/Onco logy [facility] [place] [address] [place] [phone] Sunil Bourgeois MD [address] [place], [place] [address] 4 12:00 PM EDT Telemedicine Psychiatry, [facility] 200 [facility] [place], [place] [address] Rj Mai MD [address] [place] [address] 4 1:00 PM EDT Office Visit Pharmacy, [place] [address] [place] [address] [facility] [address] [place] [address] 4 12:20 PM EDT Office Visit Family Practice [facility] [address] [facility] [address] Scott Montoya MD [address] [facility] [place] [address] 4 12:30 PM EDT Office Visit Ophthalmology, [facility] [address] [facility] [place] [address] Rolan Self DO [address] [place] [address] 4 11:15 AM EDT Hospital Encounter ENDO [facility], Endoscopy Room [facility] [address] [place] [phone] Aj Pruett DO [address] [place] [address] 4 11:15 AM EDT - 4 11:45 AM EDT Surgery ENDO [facility], Endoscopy Room [facility] [address] [place] [phone] Aj Pruett DO [address] [place] [address] ESOPHAGOGASTRODUODENOSCOPY (EGD), FLEXIBLE, TRANSORAL, DIAGNOSTIC 4 11:00 AM EST Telemedicine Pharmacy, [facility] 132 [facility] [place] [address] [facility] 132 [facility] [place] [address] 4 1:40 PM EST Office Visit Nephrology, [facility] [address] [place] [address] Jonathan Mathew MD [address] [place] [address] 5 8:00 AM EST Office Visit Family Practice [facility] 132 [facility] [place] [address] Scott Montoya MD 132 [facility] [place] [address] Scheduled Procedures Name Priority Associated Diagnoses Date/Ti [...] this encounter Medical Devices Implanted Type Area Chestnut Tanner Device Identifier Shelf Expiration Date Model / Serial / Lot Neurostimul Intellis Adaptiv - [id number] - [id number] Implanted:Qty: 1 on 08/22/2022 by Rafia Small MD at OR [facility] N/A: Spine Lumbar [employer] 06/21/2023 [id number] / [id number] / Description:battery Medtronic Lead Kit 60 Cm Implanted:Qty: 1 on 08/22/2022 by Rafia Small MD at OR [facility] N/A: Spine Lumbar 02/01/2026 [id number] / / [id number] Medtronic Lead Kit 60cm Implanted:Qty: 1 on 08/22/2022 by Rafia Small MD at OR [facility] N/A: Spine Lumbar 03/21/2026 [id number] / / [id number] Envelope Tyrx Med Antibacteril - [id number] Implanted:Qty: 1 on 08/22/2022 by Rafia Small MD at OR [facility] N/A: Spine Lumbar [employer] 03/10/2023 [id number] / / [id number] Hemostatic Clip Res 235cm - [id number] Implanted:Qty: 4 on 10/05/2023 by Aj Pruett DO at ENDOSCOPY [facility] : ENDOSCOPY 02/03/2026 [id number] / / Hemostatic Clip Res 235cm - [id number] Implanted:Qty: 1 on 10/05/2023 by Aj Pruett DO at ENDOSCOPY [facility] : ENDOSCOPY 02/02/2026 [id number] / / documented as of this encounter Visit Diagnoses Diagnosis Anxiety- Primary Anxiety state, unspecified Bilateral low back pain with sciatica, sciatica laterality unspecified, unspecified chronicity Type 2 diabetes mellitus with hemoglobin A1c [...] Power of Attor narda? No Care Teams Administrative Services Director Relationship Specialty Start Date End Date Scott Montoya MD [address] [place] [address] PCP - General Family Medicine 08/03/18 documented as of this encounter
--- OUTSIDE RECORDS SUMMARY | 2024-05-13 05:16 | External Medical Summary | Summary of Care ---
Author Name Unknown Organization [facility] Address [address] [facility] [place] [address] Phone [phone] Care Team Providers Care Assistant Plant Control Operator Name Role Phone Scott Montoya MD Primary Care Provider + Reason for Visit * Reason Onset Date Comments Medication Refill 02/18/2024 Encounter Details Date Type Department Care Team (Late st Contact Info) Description 02/18/2024 Refill Family Practice [facility] [address] [place] [address] Scott Montoya MD [address] [place] [address] Back spasm Allergies Active Allergy Reactions Criticality [...] Strip 5 7 Active Insulin Infusion Pump (MINIMKonoz 630G INSULIN PUMP) KITIndications:Type 2 diabetes mellitus [...] suspected opioid overdose. Seek immediate medical attention. [email or web address] 1 Each 3 3 Active Loratadine 10 [...] 8.0% (HCC),DM type 2, not at goal ([facility]) INJECT UP TO 200 [...] before bedtime. 90 Tablet 2 4 Active Escitalopram Oxalate 20 MG Oral Tablet (Lexapro) Take 1 Tablet by mouth in the morning. 90 Tablet 1 4 02/18/20 24 Discontinu ed(Refill) Baclofen 10 MG Oral Tablet (Lioresal)Indicatio ns:Back spasm Take 1 Tablet by mouth in the morning and 1 Tablet at noon and 1 Tablet before bedtime. 90 Tablet 3 4 02/18/20 24 Discontinu ed(Refill) traZODone HCl [...] Overview: Per Obesity Taxonomy Coronary atherosclerosis of [place] coronary artery 09/15/2008 10/03/2008 Malaise and fatigue [...] mRNA, LNP-s, No Pre serve, 2-Dose Series (NaturVention) 11/08/2020,10/11/2020 HEP A - Hepatitis A (Adult > 18 yrs) 04/11/2011, 09/20/2010 Hepatitis B, 20+ yrs 07/05/2015 Pneumococcal Conjugate Vacci ne, 20-valent (Taeiimv12) 03/13/2023 Pneumococcal Polysaccharide PPV23 (Pneumovax) 02/19/2018,03/09/2007 Seasonal [...] Notes * Telephone Encounter - Fito Fernandez [facility] - 02/18/2024 11:26 AM EDTSigned Prescriptions: Disp Refills Baclofen 10 MG Oral Tablet (Lioresal) 90 Tab*2 Sig: Take 1 Tablet by mouth in the morning and 1 Tablet at noon and 1 Tablet before bedtime. Authorizing Provider: SCOTT MONTOYA Ordering User: FITO HILLMAN Electronically signed by Fito Fernandez [facility] at 02/18/2024 11:26 AM EDT * Telephone Encounter - Lisandra Aponte [facility] - 02/18/2024 11:05 AM EDT Please reroute Rx to [facility]. Pending Prescriptions: Disp Refills Baclofen 10 MG Oral Tablet (Lioresal) 90 Tab*2 Sig: Take 1 Tablet by mouth in the morning and 1 Tablet at noon and 1 Tablet before bedtime. Last Visit: 02/12/2024 (in office), 09/08/2022 (telemedicine) 03/16/2024 If no future appointments scheduled, and last appointment is greater than a year ago, please schedule patient for a follow-up appointment Last date the medication was ordered: [id number] Patient Phone Numbers Labs: Lab Results Component [...] Description 4 11:00 AM EDT Laboratory Laboratory, [place] [address] [place] [id number] [facility] [address] [place] [address] 4 2:15 PM EDT Office Visit Hematology/Onco logy [facility] [address] [facility] [place] [address] Sunil Bourgeois MD [address] [facility] [place] [address] 4 12:00 PM EDT Telemedicine Psychiatry, [facility] [address] [facility] [place] [address] Rj Mai MD [address] [place] [address] 4 1:00 PM EDT Office Visit Pharmacy, [place] [address] [place] [address] [facility] [address] [place] [address] 4 12:20 PM EDT Office Visit Family [facility] [address] [facility] [place] [address] Scott Montoya MD [address] [place] [address] 4 12:30 PM EDT Office Visit Ophthalmology, [facility] [address] [place] [address] Rolan Self, DO [address] [place] [address] 4 11:15 AM EDT Hospital Encounter ENDO [facility], Endoscopy Room [facility] [address] [place] [phone] Aj Pruett, DO [address] [place] [address] 4 11:15 AM EDT - 4 11:45 AM EDT Surgery ENDO [facility], Endoscopy Room [facility] [address] [place] [phone] Aj Purett, DO [address] [place] [address] ESOPHAGOGASTRODUODENOSCOPY (EGD), FLEXIBLE, TRANSORAL, DIAGNOSTIC 4 11:00 AM EST Telemedicine Pharmacy, [facility] [address] [place] [address] [facility] [address] [place] [address] 4 1:40 PM EST Office Visit Nephrology, [facility] [address] [place] [address] Jonathan Mathew MD [address] [place] [address] 5 8:00 AM EST Office Visit Family Practice [facility] [address] [place] [address] Scott Montoya MD [address] [place] [address] Scheduled Procedures Name Priority Associated Diagnoses Date/Ti [...] 0 09/2022, 06/14/2020, Additional history exists GFR 02/10/2025 [...] this encounter Medical Devices Implanted Type Area Chassis Mechanic Device Identifier Shelf Expiration Date Model / Serial / Lot Neurostimul Intellis Adaptiv - [id number] - [id number] Implanted:Qty: 1 on 08/22/2022 by Rafia Small MD at OR [facility] N/A: Spine Lumbar [employer] 06/21/2023 [id number] / [id number] / Description:battery Medtronic Lead Kit 60 Cm Implanted:Qty: 1 on 08/22/2022 by Rafia Small MD at OR [facility] N/A: Spine Lumbar 02/01/2026 [id number] / / [id number] Medtronic Lead Kit 60cm Implanted:Qty: 1 on 08/22/2022 by Rafia Small MD at OR [facility] N/A: Spine Lumbar 03/21/2026 [id number] / / [id number] Envelope Tyrx Med Antibacteril - [id number] Implanted:Qty: 1 on 08/22/2022 by Rafia Small MD at OR [facility] N/A: Spine Lumbar [employer] 03/10/2023 [id number] / / [id number] Hemostatic Clip Res 235cm - [id number] Implanted:Qty: 4 on 10/05/2023 by Aj Pruett, DO at ENDOSCOPY [facility] : ENDOSCOPY 02/03/2026 [id number] / / Hemostatic Clip Res 235cm - [id number] Implanted:Qty: 1 on 10/05/2023 by Aj Pruett, DO at ENDOSCOPY [facility] : ENDOSCOPY 02/02/2026 [id number] / / documented as of this encounter [...] Power of Attor narda? No Care Teams Assistant Plant Control Operator Relationship Specialty Start Date End Date Scott Montoya MD [address] [place] [address] PCP - General Family Medicine 08/03/18 documented as of this encounter
--- OUTSIDE RECORDS SUMMARY | 2024-05-13 05:16 | External Medical Summary | Summary of Care ---
Author Name Unknown Organization [facility] Address [address] [facility] [place] [address] Phone [phone] Care Team Providers Care Skimmer Scoop Operator Name Role Phone Scott Weldon MD Primary Care Provider + Encounter Details Date Type Department Care Team (Late st Contact Info) Description 02/25/2024 Orders Only Family Practice [facility] [address] [place] [address] Scott Weldon MD [address] [facility] [place] [address] Allergies Active Allergy Reactions Criticality Noted Date Comments Naproxen Sodium Bleeding High 11/29/2013 Pollen 12/03/2022 Seasonal Food (See Comments) Anaphylaxis High 04/20/2019 Hot peppers (oils) Kiwi Extract Anaphylaxis High 04/20/2019 documented as of this encounter (statuses as of 02/25/2024) Medications Medication Sig Dispensed Refills Start Date [...] Strip 5 02/17/2017 Active Insulin Infusion Pump (MINIMGRIDiant Corporation 630G INSULIN PUMP) KITIndications:Type 2 diabetes mellitus with hemoglobin A1c goal of less than 8.0% ([facility]) Use as directed. 07/30/2017 Active [...] suspected opioid overdose. Seek immediate medical attention. [email or web address]?v=v26cDa [email or web address] 1 Each 3 11/27/2022 Active [...] A1c goal of less than 8.0% ([facility]),DM type 2, not at goal ([facility]) INJECT UP TO 200 UNITS SUBCUTANEOSULY ONCE DAILY VIA PUMP 60 mL 05/05/2023 Active Ondansetron 8 MG Oral Tablet Disintegrating (Zofran) PLACE 1 TABLET ON TONGUE AND DISSOLVE EVERY 8 HOURS NEEDED FOR NAUSEA 30 Tablet 08/10/2023 Active Metoclopramide HCl 5 MG Oral Tablet (Reglan) Take 1 Tablet by mouth in the morning and 1 Tablet at noon and 1 Tablet in the evening. Take before meals. If needed for nausea. 30 Tablet 10/21/2023 Active Albuterol Sulfate HFA 108 (90 Base) [...] the morning. 90 Tablet 3 02/12/2024 Active Empagliflozin 10 MG Oral Tablet (Jardiance)Indicati [...] other day. 50 Tablet 1 02/19/2024 Active documented as of this encounter (statuses as of 02/25/2024) Active Problems Problem Noted Date Diagnosed Date [...] 1y trigger shot/SI injection consent signed Family friend-[facility]. Son Ricky-fall. Also son Hieu. Sim--2019 [...] as of this encounter (statuses as of 02/25/2024) Resolved Problems Problem Noted Date Diagnosed Date [...] Overview: Per Obesity Taxonomy Coronary atherosclerosis of [place] coronary artery 09/15/2008 10/03/2008 Malaise and fatigue [...] as of this encounter (statuses as of 02/25/2024) Immunizations Name Administration Dates Next Due COVID-19 mRNA, LNP-s, No Pre serve, 2-Dose Series (Factual) 11/08/2020,10/11/2020 HEP A - Hepatitis A (Adult > 18 yrs) 04/11/2011, 09/20/2010 Hepatitis B, 20+ yrs 07/05/2015 Pneumococcal Conjugate Vacci ne, 20-valent (Knniial08) 03/13/2023 Pneumococcal Polysaccharide PPV23 (Pneumovax) 02/19/2018,03/09/2007 Seasonal [...] Description 4 12:00 PM EDT Telemedicine Psychiatry, [address] [address] Rj Mai MD [address] [place] [address] 4 11:00 AM EDT Laboratory Laboratory, [place] [address] [facility], [place] [address] [place], [facility] [address] [place] [place] [address] 4 11:15 AM EDT Imaging Radiology, [place] [address] [facility] [place] [address] 4 1:00 PM EDT Office Visit Pharmacy, [place] [address] [place] [facility] [place] [address] [place] [facility] [address] [place] [facility] [address] 4 8:45 AM EDT Office Visit Hematology/Onco logy [facility] [address] [place] [phone] Sunil Bourgeois MD [address] [place] [address] 4 12:20 PM EDT Office Visit Family Practice [facility] [address] [facility] [place] [address] Scott Weldon MD [address] [facility] [place] [address] 4 12:30 PM EDT Office Visit Ophthalmology, [facility] [place] [address] Rolan Self, DO [address] [place] [address] 4 11:15 AM EDT Hospital Encounter ENDO [facility], Endoscopy Room [facility] [address] [place] [phone] Aj Pruett, DO [address] [place], [place] [address] 4 11:15 AM EDT - 4 11:45 AM EDT Surgery ENDO [facility], Endoscopy Room [facility] [address] [place], [place] [address] Aj Pruett, DO [address] [place], [place] [address] ESOPHAGOGASTRODUODENOSCOPY (EGD), FLEXIBLE, TRANSORAL, DIAGNOSTIC 4 11:00 AM EST Telemedicine Pharmacy, [facility] [address] [facility] [place] [address] [facility] [address] [place] [address] 4 1:40 PM EST Office Visit Nephrology, [facility] [address] [facility] [place] [address] Jonathan Mathew MD [address] [facility] [place], [place] [address] 5 8:00 AM EST Office Visit Family Practice [facility] [address] [facility] [place] [address] Scott Weldon MD [address] [place] [address] 5 1:20 PM EST Office Visit Hepatology, [facility] [address] [facility] [place] [address] Jazzy Chu, DO [address] [place] [address] 5 10:30 AM EST Telemedicine Gastroenterolog y, [facility] [address] [place] [address] Adam Bradshaw CRNP [address] [place] [address] Scheduled Procedures Name Priority Associated Diagnoses Date/Ti [...] this encounter Medical Devices Implanted Type Area Glass Mold Repairer Device Identifier Shelf Expiration Date Model / Serial / Lot Neurostimul Intellis Adaptiv - [id number] - [id number] Implanted:Qty: 1 on 08/22/2022 by Rafia Small MD at OR [facility] N/A: Spine Lumbar [employer] 06/21/2023 [id number] / [id number] / Description:battery Medtronic Lead Kit 60 Cm Implanted:Qty: 1 on 08/22/2022 by Rafia Small MD at OR [facility] N/A: Spine Lumbar 02/01/2026 [id number] / / [id number] Medtronic Lead Kit 60cm Implanted:Qty: 1 on 08/22/2022 by Rafia Small MD at OR [facility] N/A: Spine Lumbar 03/21/2026 [id number] / / [id number] Envelope Tyrx Med Antibacteril - [id number] Implanted:Qty: 1 on 08/22/2022 by Rafia Small MD at OR [facility] N/A: Spine Lumbar [employer] 03/10/2023 [id number] / / [id number] Hemostatic Clip Res 235cm - [id number] Implanted:Qty: 4 on 10/05/2023 by Aj Pruett DO at ENDOSCOPY [facility] : ENDOSCOPY 02/03/2026 [id number] / / Hemostatic Clip Res 235cm - [id number] Implanted:Qty: 1 on 10/05/2023 by Aj Pruett, DO at ENDOSCOPY [facility] : ENDOSCOPY 02/02/2026 [id number] / / documented as of this encounter Procedures Procedure Name Priority Date/Time Associated Diagnosis Comments CHEMISTRY-OUTSIDE Routine 02/03/2024 documented in this encounter Results * (ABNORMAL) CHEMISTRY-OUTSIDE (02/03/2024) Not all results display below - see scan for full detail OUTSIDE LAB (SEE SCANNED REPORT) Comment:SCAN INCLUDES - CK, LIPASE, CMP CREATININE 1.45(A) 0.6 - 1.2 MG/DL OUTSIDE LAB (SEE SCANNED REPORT) EGFR 41.2 ML/MIN OUTSIDE LA B (SEE SCANNED REPORT) POTASSIUM 5.0 3.5 - 5.1 MMOL/L OUTSIDE LAB (SEE SCANNED REPORT) GLUCOSE 152(A) 70 - 99 MG/DL OUTSIDE LAB (SEE SCANNED REPORT) HOURS FASTING OUTSID E LAB (SEE SCANNED REPORT) TRIGLYCERIDES-OUT SIDE LAB OUTSIDE LAB (SEE SCANNED REPORT) CHOLESTEROL-OUTSI DE LAB OUTSIDE LAB (SEE SCANNED REPORT) HDL-OUTSIDE LAB OUTS [place] LAB (SEE SCANNED REPORT) CHOL/HDL RATIO-OUTSIDE LAB OUTSIDE LA B (SEE SCANNED REPORT) LDL (CALCULATED)-OUTS [place] LAB OUTSIDE LAB (SEE SCANNED REPORT) LDL (DIRECT MEASURE)-OUTSIDE LAB OUTSIDE LAB (SEE SCANNED REPORT) HEMOGLOBIN, O2X-HWHUYSB LAB OUTSIDE LAB (SEE SCANNED REPORT) PHOSPHORUS-OUTSID E LAB OUTSIDE LAB (SEE SCANNED REPORT) PTH-OUTSIDE LAB OUTS [place] LAB (SEE SCANNED REPORT) MICROALBUMIN RATIO-OUTSIDE LAB OUTSIDE LA B (SEE SCANNED REPORT) PROTEIN, UA-OUTSIDE LAB OUTSIDE LAB (SEE SCANNED REPORT) HGB OUTSIDE LA B (SEE SCANNED REPORT) 02/03/2024 Nile Willard MD LABORATORY OUTSIDE LAB (SEE SCANNED REPORT) documented in this encounter Advance Directives * [...] Power of Attor narda? No Care Teams Skimmer Scoop Operator Relationship Specialty Start Date End Date Scott Weldon MD [address] [place] [address] PCP - General Family Medicine 08/03/18 documented as of this encounter
--- OUTSIDE RECORDS SUMMARY | 2024-05-13 05:16 | External Medical Summary | Summary of Care ---
Author Name Unknown Organization [facility] Address [address] [facility] [place] [address] Phone [phone] Care Team Providers Care Churn Driller Helper Name Role Phone Scott Montoya MD Primary Care Provider + Reason for Visit * Reason Comments eRx-Medication Refill Encounter Details Date Type Department Care Team (Late st Contact Info) Description 02/11/[address] [facility] [address] [facility] [place] [address] Scott Montoya MD 132 [facility] [place] [address] Type 2 diabetes mellitus with hemoglobin A1c goal of less than 8.0% ([facility]) Allergies Active Allergy Reactions Criticality Noted Date Comments Naproxen Sodium Bleeding High 11/29/2013 Pollen 12/03/2022 Seasonal Food (See Comments) Anaphylaxis High 04/20/2019 Hot peppers (oils) Kiwi Extract Anaphylaxis High 04/20/2019 documented as of this encounter (statuses as of 02/12/2024) Medications Medication Sig Dispensed Refills Start Date [...] 5 02/18/20 17 Active Insulin Infusion Pump ([employer] 630G INSULIN PUMP) KITIndications:Typ e 2 diabetes mellitus with hemoglobin A1c goal of less than 8.0% ([facility]) Use as directed. 07/30/19 18 Active [...] overdose. Seek immediate medical attention. [email or web address]://www.youtu [email or web address]/watch?v=[email or web address] 1 Each 3 11/28/19 23 Active Loratadine [...] less than 8.0% ([facility]),DM type 2, not at goal (HCC) [...] morning. 90 Tablet 1 08/25/19 24 Active Furosemide 40 MG Oral Tablet (Lasix) Take 1 Tablet by mouth every other day. 10/13/19 24 Active Metoclopramide HCl 5 MG Oral Tablet (Reglan) Take 1 Tablet by mouth in the morning and 1 Tablet at noon and 1 Tablet in the evening. Take before meals. If needed for nausea. 30 Tablet 10/21/19 24 Active Albuterol Sulfate HFA 108 (90 Base) MCG/ACT Inhalation Aerosol Solution INHALE 2 PUFFS BY MOUTH EVERY 6 HOURS NEEDED FOR SHORTNESS OF BREATH 18 g 5 01/07/20 24 Active Baclofen 10 MG Oral Tablet (Lioresal)Indicati ons:Back spasm Take 1 Tablet by mouth in the morning and 1 Tablet at noon and 1 Tablet before bedtime. 90 Tablet 3 01/25/20 24 Active Meclizine HCl 25 MG Oral Tablet (Antivert)Indicati ons:Vertigo Take 1 Tablet by mouth 3 times a day as needed for Dizziness. 30 Tablet 1 02/03/20 24 Active Buprenorphine 5 MCG/HR Transdermal Patch Weekly (Butrans)Indicatio ns:Controlled substance agreement signed,Chronic bilateral low back pain with sciatica, sciatica laterality unspecified,Chroni c pain syndrome Place 1 Patch topically on the skin once a week. 4 Patch 02/04/20 24 Active Eszopiclone 2 MG Oral Tablet (Lunesta) Take 1 Tablet by mouth at bedtime. 30 Tablet 02/01/20 24 Active metFORMIN HCl 1000 MG Oral Tablet (Glucophage)Indica tions:Type 2 diabetes mellitus with hemoglobin A1c goal of less than 8.0% ([facility]) Take 1 Tablet by mouth daily with breakfast. 90 Tablet 1 02/12/20 24 Active hydrOXYzine HCl 25 MG Oral Tablet TAKE 1 TAB DURING DAY EVERY 4-6 HOURS NEEDED FOR ANXIETY &2 TABS AT BEDTIME NEEDED FOR ANXIETY 450 Tablet 1 02/12/20 24 Active Pregabalin 100 MG Oral Capsule (Lyrica)Indication s:Bilateral low back pain with sciatica, sciatica laterality unspecified, unspecified chronicity TAKE 1 CAPSULE BY MOUTH EVERY DAY IN THE MORNING , AT NOON, AND BEFORE BEDTIME 270 Capsule 1 06/05/20 23 024 Discontinued(Ne dication List Clean Up) traZODone HCl 100 MG Oral Tablet (Desyrel) Take 1-2 Tablets by mouth at bedtime. 180 Tablet 1 07/29/19 24 024 Discontinued(Re fill) Ozempic (2 MG/DOSE) 8 MG/3ML Subcutaneous Solution Pen-injector (Semaglutide (2 MG/DOSE)) 2 mg once. Ozempic weekly on Sundays08/06/19 24 024 Discontinued(En d of Procedure) Pantoprazole Sodium 40 MG Oral Tablet Delayed Release (Protonix)Indicati ons:Esophageal varices without bleeding, unspecified esophageal varices type (HCC),Colitis Take 1 Tablet by mouth in the morning. 90 Tablet 3 09/01/19 24 024 Discontinued(Re fill) Atorvastatin Calcium 40 MG Oral Tablet (Lipitor)Indicatio ns:Dyslipidemia, goal LDL below 100 TAKE 1 TABLET BY MOUTH EVERY DAY IN THE MORNING 90 Tablet 3 09/14/19 24 024 Discontinued(Re fill) Magnesium Oxide -Mg Supplement 400 (240 Mg) MG Oral Tablet (Mag-Ox)Indication s:Hypomagnesemia Take 1 Tablet by mouth in the morning. 90 Tablet 3 10/21/19 24 024 Discontinued(Re fill) Empagliflozin 10 MG Oral Tablet (Jardiance)Indicat ions:Type 2 diabetes mellitus with hemoglobin A1c goal of less than 8.0% (HCC) Take 1 Tablet by mouth in the morning. Please get blood work completed the week of December 06. 30 Tablet 5 12/14/19 24 024 Discontinued(Re fill) metFORMIN HCl 1000 MG Oral Tablet (Glucophage)Indica tions:Type 2 diabetes mellitus with hemoglobin A1c goal of less than 8.0% (HCC) Take 1 Tablet by mouth daily. Dose decrease 90 Tablet 1 12/17/19 24 024 Discontinued Potassium Chloride Laura ER 20 MEQ Oral Tablet Extended Release Take 1 Tablet by mouth in the morning. 90 Tablet 1 12/31/19 24 024 Discontinued(Re fill) hydrOXYzine HCl 25 MG Oral Tablet TAKE 1 TAB DURING DAY EVERY 4-6 HOURS NEEDED AND TAKE 2 TABS AT BEDTIME NEEDED FOR ANXIETY 120 Tablet 1 01/28/20 24 024 Discontinued documented as of this encounter (statuses as of 02/12/2024) Active Problems Problem Noted Date Diagnosed Date [...] as of this encounter (statuses as of 02/12/2024) Resolved Problems Problem Noted Date Diagnosed Date [...] Overview: Per Obesity Taxonomy Coronary atherosclerosis of [place] coronary artery 09/15/2008 10/03/2008 Malaise and fatigue [...] as of this encounter (statuses as of 02/12/2024) Immunizations Name Administration Dates Next Due COVID-19 mRNA, LNP-s, No Pre serve, 2-Dose Series (Pfizer) 11/08/2020,10/11/2020 HEP A - Hepatitis A (Adult > 18 yrs) 04/11/2011, 09/20/2010 Hepatitis B, 20+ yrs 07/05/2015 Pneumococcal Conjugate Vacci ne, 20-valent ([id number]) 03/13/2023 Pneumococcal Polysaccharide PPV23 (Pneumovax) 02/19/2018,03/09/2007 Seasonal [...] Encounter - Scott Montoya MD - 02/12/2024 5:13 PM EDTSigned Prescriptions: Disp Refills metFORMIN HCl 1000 MG Oral Tablet (Glucoph*90 Tab*1 Sig: Take 1 Tablet by mouth daily with breakfast. Authorizing Provider: SCOTT MONTOYA Ordering User: JOSE CATES hydrOXYzine HCl 25 MG Oral Tablet 450 Ta*1 Sig: TAKE 1 TAB DURING DAY EVERY 4-6 HOURS NEEDED FOR ANXIETY &2 TABS AT BEDTIME NEEDED FOR ANXIET Y Authorizing Provider: SCOTT MONTOYA * Telephone Encounter - Jose Cates [facility] - 02/12/2024 1:06 PM EDTPending Prescriptions: Disp Refills hydrOXYzine HCl 25 MG Oral Tablet 450 Ta*1 Sig: TAKE 1 TAB DURING DAY EVERY 4-6 HOURS NEEDED FOR ANXIETY &2 TABS AT BEDTIME NEEDED FOR ANXIETY Signed Prescriptions: Disp Refills metFORMIN HCl 1000 MG Oral Tablet (Glucoph*90 Tab*1 Sig: Take 1 Tablet by mouth daily with breakfast. Author izing Provider: SCOTT MONTOYA Ordering User: JOSE CATES * Telephone Encounter - oJse Cates [facility] - 02/12/2024 1:05 PM EDT Patient requesting 90 day supply. Pleast send if appropriate. Thanks, Jose Cates PharmD Clinical Pharmacist [facility] [phone] 02/12/2024, 1:05 PM * Telephone Encounter - Jose Cates RPh - 02/12/2024 1:04 PM EDT Pending Prescriptions: Disp Refills metFORMIN HCl 1000 MG Oral Tablet (Glucop*90 Tab*1 Sig: Take 1 Tablet by mouth daily with breakfast. hydrOXYzine HCl 25 MG Oral Tablet [Pharma*450 Ta*1 Sig: TAKE 1 TAB DURING DAY EVERY 4-6 HOURS NEEDED FOR ANXIETY &2 TABS AT BEDTIME NEEDED FOR ANXIETY Last Visit: 01/28/2024 (in office), 09/08/2022 (telemedicine) Next Visit: 03/16/2024 If no future appointments scheduled, and last appointment is greater than a year ago, please schedule patient for a follow-up appointment Last date the medication was ordered: 01/28/24 Pharmacy: [id number] [address] [facility] Is this request for a controlled [...] (Latest Contact Info) Description 11:00 AM EDT Laboratory Laboratory, [place] [address] [place] [phone] [facility] [address] [place] [address] 4 2:15 PM EDT Office Visit Hematology/Onco logy [facility] [address] [place] [phone] Sunli Bourgeois MD 200 [facility] [place] [address] 4 12:00 PM EDT Telemedicine Psychiatry, [facility] [address] [facility] [place] [address] Rj Mai MD [address] [place] [address] 4 1:00 PM EDT Office Visit Pharmacy, [place] [address] [place] [address] [facility] [address] [place] [address] 4 12:20 PM EDT Office Visit Family Practice [facility] 132 [facility] [place] [address] Scott Montoya MD 132 [facility] [place] [address] 4 12:30 PM EDT Office Visit Ophthalmology, [facility] 132 [facility] [place] [address] Rolan Self, DO [facility] [place] [address] 4 11:15 AM EDT Hospital Encounter ENDO [facility], [facility] [place] [address] Aj Pruett, DO [address] [place] [address] 4 11:15 AM EDT - 4 11:45 AM EDT Surgery ENDO [facility], Endoscopy Room [facility] [address] [place] [address] Aj Pruett, DO [address] [place] [address] ESOPHAGOGASTRODUODENOSCOPY (EGD), FLEXIBLE, TRANSORAL, DIAGNOSTIC 4 11:00 AM EST Telemedicine Pharmacy, [facility] [address] [place] [address] [facility] [address] [place] [address] 4 1:40 PM EST Office Visit Nephrology, [facility] 200 [facility] [place] [address] Jonathan Mathew MD 200 [facility] [place] [address] 5 8:00 AM EST Office Visit Family Practice [facility] [address] [place] [address] Scott Montoya MD [address] [place] [address] Scheduled Procedures Name Priority Associated Diagnoses Date/Ti [...] exists COVID-19 Vaccine (3 - 2022- season) 2024 11/08/2020, 10/11/2020 Influenza Vaccine (FLU [...] this encounter Medical Devices Implanted Type Area Paradichlorobenzene Machine Operator Device Identifier Shelf Expiration Date Model / Serial / Lot Neurostimul Intellis Adaptiv - [id number] - [id number] Implanted:Qty: 1 on 08/22/2022 by Rafia Small MD at OR [facility] N/A: Spine Lumbar [employer] 06/21/2023 [id number] / [id number] / Description:battery Medtronic Lead Kit 60 Cm Implanted:Qty: 1 on 08/22/2022 by Rafia Small MD at OR [facility] N/A: Spine Lumbar 02/01/2026 [id number] / / [id number] Medtronic Lead Kit 60cm Implanted:Qty: 1 on 08/22/2022 by Rafia Small MD at OR [facility] N/A: Spine Lumbar 03/21/2026 [id number] / / [id number] Envelope Tyrx Med Antibacteril - [id number] Implanted:Qty: 1 on 08/22/2022 by Rafia Small MD at OR [facility] N/A: Spine Lumbar [employer] 03/10/2023 [id number] / / [id number] Hemostatic Clip Res 235cm - [id number] Implanted:Qty: 4 on 10/05/2023 by Aj Pruett DO at ENDOSCOPY [facility] : ENDOSCOPY 02/03/2026 [id number] / / Hemostatic Clip Res 235cm - [id number] Implanted:Qty: 1 on 10/05/2023 by Aj Pruett DO at ENDOSCOPY [facility] : ENDOSCOPY 02/02/2026 [id number] / / documented as of this encounter [...] Power of Attor narda? No Care Teams Churn Driller Helper Relationship Specialty Start Date End Date Scott Montoya MD [address] [facility] [place] [address] PCP - General Family Medicine 08/03/18 documented as of this encounter
--- OUTSIDE RECORDS SUMMARY | 2024-05-13 05:17 | External Medical Summary | Summary of Care ---
Author Name Unknown Organization [facility] Address [address] [facility] [place] [address] Phone [phone] Care Team Providers Care Parquetry Floor Layer Name Role Phone Scott Weldon MD Primary Care Provider + Reason for Visit * Reason Onset Date Comments Advice 02/12/2024 Encounter Details Date Type Department Care Team (Late st Contact Info) Description 02/12/2024 Telephone Family Practice [facility] [place] [address] Scott Weldon MD [address] [facility] [place] [address] Advice Allergies Active Allergy Reactions Criticality Noted [...] 5 Pre-filled Pen Syringe Dosing Unit 3 07/25/201 6 Active B-D Ultrafine III, 5MM, Pen [...] 8.0% ([facility]) Use as directed. 8 Active [...] suspected opioid overdose. Seek immediate medical attention. [email or web address]://[email or web address]/[email or web address]?v=[email or web address] 1 Each 3 3 Active Loratadine 10 [...] by mouth every other day. 4 Active Magnesium Oxide -Mg Supplement 400 [...] needed for nausea. 30 Tablet 4 Active Empagliflozin 10 MG Oral Tablet (Jardiance)Indicati ons:Type 2 diabetes mellitus with hemoglobin A1c goal of less than 8.0% ([facility]) Take 1 Tablet by mouth in the morning. Please get blood work completed the week of December 06. 30 Tablet 5 4 Active Potassium Chloride Laura ER 20 [...] FOR ANXIETY 120 Tablet 1 4 Active Meclizine HCl 25 MG Oral [...] mouth at bedtime. 30 Tablet 4 Active metFORMIN HCl 1000 MG Oral Tablet (Glucophage)Indicat ions:Type 2 diabetes mellitus with hemoglobin A1c goal of less than 8.0% (HCC) Take 1 Tablet by mouth daily with breakfast. 90 Tablet 1 4 Active Atenolol 25 MG Oral Tablet (Tenormin) Take 1 Tablet by mouth in the morning and 1 Tablet before bedtime. Active traZODone HCl 100 MG Oral Tablet (Desyrel) Take 1-2 Tablets by mouth at bedtime. 180 Tablet 1 4 Active Pregabalin 100 MG Oral Capsule (Lyrica)Indications :Bilateral low back pain with sciatica, sciatica laterality unspecified, unspecified chronicity TAKE 1 CAPSULE BY MOUTH EVERY DAY IN THE MORNING , AT NOON, AND BEFORE BEDTIME 270 Capsule 1 3 02/12/20 24 Discontinu ed(Medicat ion List Clean Up) documented [...] mRNA, LNP-s, No Pre serve, 2-Dose Series (Geminare) 11/08/2020,10/11/2020 HEP A - Hepatitis A (Adult > 18 yrs) 04/11/2011, 09/20/2010 Hepatitis B, 20+ yrs 07/05/2015 Pneumococcal Conjugate Vacci ne, 20-valent ([id number]) 03/13/2023 Pneumococcal Polysaccharide PPV23 (Pneumovax) 02/19/2018,03/09/2007 Seasonal [...] Telephone Encounter - Kathie Soares LPN - 02/12/2024 2:56 PM EDT Called and spoke with patient. Notified of information from PCP (see other tele enc). Pt verbalizedunderstanding. * Telephone Encounter - Luisana Mcclain OSA - 02/12/2024 2:31 PM EDT Patient is calling because Dr. Weldon stopped her Ozempic and Jardiance today at her appointment and she doesn't want to do that. She thinks it may have been done by mistake. She thinks he must havemeant to stop Atenolol. Please call her to discuss and explain. It needs to be fixed today or she will lose help with her insulin. documented in this encounter Plan of Treatment Upcoming Encounters Date Type Department Care Team (Latest Contact Info) Description 4 11:00 AM EDT Laboratory Laboratory, [place] [address] [place] [address] [place] [address] [place] [address] 4 2:15 PM EDT Office Visit Hematology/[facility] [place] [address] [place] [phone] Sunil Bourgeois MD [address] [place] [address] 4 12:00 PM EDT Telemedicine Psychiatry, [facility] 200 [facility] [place] [address] Rj Mai MD [address] [place] [address] 4 1:00 PM EDT Office Visit Pharmacy, [address] [address] [address] [place] [address] 4 12:20 PM EDT Office Visit Family Practice [facility] [address] [place] [address] Scott Weldon MD [address] [place] [address] 4 12:30 PM EDT Office Visit Ophthalmology, [facility] [address] [place] [address] Rolan Self, DO [address] [place] [address] 4 11:15 AM EDT Hospital Encounter ENDO [facility], Endoscopy Room [facility] [address] [place] [address] Aj Pruett, DO [address] [place] [address] 4 11:15 AM EDT - 4 11:45 AM EDT Surgery ENDO [facility], Endoscopy Room [facility] [address] [place] [phone] Aj Pruett, DO [address] [place] [address] ESOPHAGOGASTRODUODENOSCOPY (EGD), FLEXIBLE, TRANSORAL, DIAGNOSTIC 4 11:00 AM EST Telemedicine Pharmacy, [facility] [address] [place] [address] [facility] [address] [place] [address] 4 1:40 PM EST Office Visit Nephrology, [facility] [place] [address] [place] [address] Jonathan Mathew MD 200 [facility] [place] [address] 5 8:00 AM EST Office Visit [facility] [address] [place] [address] Scott Weldon MD [address] [place] [address] Scheduled Procedures Name Priority Associated Diagnoses Date/Ti [...] Medical Devices Implanted Type Area Manager Of Financial Device Identifier Shelf Expiration Date Model / Serial / Lot Neurostimul Intellis Adaptiv - [id number] - [id number] Implanted:Qty: 1 on 08/22/2022 by Rafia Small MD at OR [facility] N/A: Spine Lumbar [employer] 06/21/2023 [id number] / [id number] / Description:battery Medtronic Lead Kit 60 Cm Implanted:Qty: 1 on 08/22/2022 by Rafia Small MD at OR [facility] N/A: Spine Lumbar 02/01/2026 [id number] / / [id number] Medtronic Lead Kit 60cm Implanted:Qty: 1 on 08/22/2022 by Rafia Small MD at OR [facility] N/A: Spine Lumbar 03/21/2026 [id number] / / [id number] Envelope Tyrx Med Antibacteril - [id number] Implanted:Qty: 1 on 08/22/2022 by Rafia Small MD at OR [facility] N/A: Spine Lumbar [employer] 03/10/2023 [id number] / / [id number] Hemostatic Clip Res 235cm - [id number] Implanted:Qty: 4 on 10/05/2023 by Aj Pruett DO at ENDOSCOPY [facility] : ENDOSCOPY 02/03/2026 [id number] / / Hemostatic Clip Res 235cm - [id number] Implanted:Qty: 1 on 10/05/2023 by Aj Pruett DO at ENDOSCOPY [facility] : ENDOSCOPY 02/02/2026 [id number] / / documented as of this encounter [...] Power of Attor narda? No Care Teams Parquetry Floor Layer Relationship Specialty Start Date End Date Scott Weldon MD [address] [facility] [place] [address] PCP - General Family Medicine 08/03/18 documented as of this encounter
--- OUTSIDE RECORDS SUMMARY | 2024-05-13 05:17 | External Medical Summary | Summary of Care ---
Author Name Unknown Organization [facility] Address [address] [facility] [place] [address] Phone [phone] Care Team Providers Care Business Analytics Specialist Name Role Phone Scott Weldon MD Primary Care Provider + Reason for Visit * Reason Onset Date Comments Test Results 02/12/2024 Encounter Details Date Type Department Care Team (Late st Contact Info) Description 02/12/2024 Telephone Family Practice [facility] [place] [address] Scott Weldon MD [address] [place] [address] Test Results Allergies Active Allergy Reactions Criticality [...] suspected opioid overdose. Seek immediate medical attention. [email or web address] 1 Each 3 3 Active Loratadine 10 [...] BEFORE BEDTIME 270 Capsule 1 3 Active Ondansetron 8 MG Oral [...] less than 8.0% ([facility]) Take 1 Tablet by mouth in [...] less than 8.0% ([facility]) Take 1 Tablet by mouth daily [...] mg once. Ozempic weekly on Sundays 4 02/12/20 24 Discontinu ed(End of Procedure) documented as [...] mRNA, LNP-s, No Pre serve, 2-Dose Series ([employer]) 11/08/2020,10/11/2020 HEP A - Hepatitis A (Adult > 18 yrs) 04/11/2011, 09/20/2010 Hepatitis B, 20+ yrs 07/05/2015 Pneumococcal Conjugate Vacci ne, 20-valent ([id number]) 03/13/2023 Pneumococcal Polysaccharide PPV23 (Pneumovax) 02/19/2018,03/09/2007 Seasonal [...] Encounter - Kathie Soares LPN - 02/12/2024 3:09 PM EDT Patient notified. No further questions at this time. * Telephone Encounter - Danielle Anderson [facility] - 02/12/2024 2:15 PM EDT Called [employer] and spoke to sales representative supervisor to stop ozempic shipments from [employer]. Pt may send me a e|tab message for sooner appt availability if need be. Thanks, Danielle Anderson, PharmD, BCACP Clinical Pharmacist Medication Therapy Disease Management 02/12/2024, 2:15 PM * Telephone Encounter - Scott Weldon MD - 02/12/2024 2:05 PM EDT Nursing-please Call pt Her labs show her lipase (pancreas test) is higher now than it was in hospital. I'd like her to stop her Ozempic. Likely is causing her stomach symptoms, gas/belching, and likely causing her pancreas inflammation. If sugars spike over 300s, please call MTM to notify Cc: Danielle Anderson MTM documented in this encounter Plan of Treatment Upcoming Encounters Date Type Department Care Team (Latest Contact Info) Description 4 11:00 AM EDT Laboratory Laboratory, [facility] [address] [place] [phone] [facility] [address] [place] [address] 4 2:15 PM EDT Office Visit Hematology/Onco logy [place] [place] [address] [place] [address] Sunil Bourgeois MD [address] [place] [address] 4 12:00 PM EDT Telemedicine Psychiatry, [facility] [address] [facility] [place], [place] [address] Rj Mai MD [address] [place] [address] 4 1:00 PM EDT Office Visit Pharmacy, [place] [address] [place] [address] [facility] [address] [place] [address] 4 12:20 PM EDT Office Visit Family Practice [facility] [address] [facility] [place] [address] Scott Weldon MD [address] [facility] [place] [address] 4 12:30 PM EDT Office Visit Ophthalmology, [facility] [address] [place] [address] Rolan Self, DO [address] [facility] [place] [address] 4 11:15 AM EDT Hospital Encounter ENDO O[facility], Endoscopy Room [facility] [address] [place] [phone] Aj Pruett, [address] [place] [address] 4 11:15 AM EDT - 4 11:45 AM EDT Surgery ENDO OSSC, Endoscopy Room [facility] [address] [place] [address] Aj Pruett, [address] [place], [place] [address] ESOPHAGOGASTRODUODENOSCOPY (EGD), FLEXIBLE, TRANSORAL, DIAGNOSTIC 4 11:00 AM EST Telemedicine Pharmacy, [facility] [place] [address] [facility] [place] [address] 4 1:40 PM EST Office Visit Nephrology, [facility] [address] [facility] [place] [address] Jonathan Mathew MD [address] [facility] [place] [address] 5 8:00 AM EST Office Visit Family Practice [facility] [address] [place] [address] Scott Weldon MD [address] [facility] [place] [address] Scheduled Procedures Name Priority Associated Diagnoses Date/Ti [...] this encounter Medical Devices Implanted Type Area Hand Outside Cutter Device Identifier Shelf Expiration Date Model / Serial / Lot Neurostimul Intellis Adaptiv - [id number] - [id number] Implanted:Qty: 1 on 08/22/2022 by Rafia Small MD at OR [facility] N/A: Spine Lumbar [employer] 06/21/2023 [id number] / [id number] / Description:battery Medtronic Lead Kit 60 Cm Implanted:Qty: 1 on 08/22/2022 by Rafia Small MD at OR [facility] N/A: Spine Lumbar 02/01/2026 [id number] / / [id number] Medtronic Lead Kit 60cm Implanted:Qty: 1 on 08/22/2022 by Rafia Small MD at OR [facility] N/A: Spine Lumbar 03/21/2026 [id number] / / [id number] Envelope Tyrx Med Antibacteril - [id number] Implanted:Qty: 1 on 08/22/2022 by Rafia Small MD at OR [facility] N/A: Spine Lumbar [employer] 03/10/2023 [id number] / / [id number] Hemostatic Clip Res 235cm - [id number] Implanted:Qty: 4 on 10/05/2023 by Aj Pruett DO at ENDOSCOPY [facility] : ENDOSCOPY 02/03/2026 [id number] / / Hemostatic Clip Res 235cm - [id number] Implanted:Qty: 1 on 10/05/2023 by Aj Pruett DO at ENDOSCOPY [facility] : ENDOSCOPY 02/02/2026 [id number] / / documented as of this encounter [...] Power of Attor narda? No Care Teams Business Analytics Specialist Relationship Specialty Start Date End Date Scott Weldon MD [address] [facility] [place] [address] PCP - General Family Medicine 08/03/18 documented as of this encounter
--- OUTSIDE RECORDS SUMMARY | 2024-05-13 05:17 | External Medical Summary | Summary of Care ---
Author Name Unknown Organization [facility] Address [address] [facility] [address] Phone [phone] Care Team Providers Care [employer] Special Education Teacher Name Role Phone Scott Weldon MD Primary Care Provider + Encounter Details Date Type Department Care Team (Late st Contact Info) Description 02/12/2024 Telephone Family Practice [facility] [address] [place] [address] Scott Weldon MD 132 [facility] [place] [address] Allergies Active Allergy Reactions Criticality Noted Date [...] A1c goal of less than 8.0% ([facility]) Use as directed. 8 Active [...] suspected opioid overdose. Seek immediate medical attention. [email or web address]?[email or web address] 1 Each 3 3 Active Loratadine 10 [...] A1c goal of less than 8.0% ([facility]),DM type 2, not at goal ([facility]) INJECT UP TO 200 UNITS [...] A1c goal of less than 8.0% ([facility]) Take 1 Tablet by mouth [...] Steatohepatitis, non-alcoholic 08/28/2010 09/15/2014 OBESITY, BMI= 36.56 3/04/1808/16/2010 01/23/2012 OBESITY, BMI= 36.56 08/01/10 08/01/2010 01/23/2012 [...] mRNA, LNP-s, No Pre serve, 2-Dose Series (MediTAP) 11/08/2020,10/11/2020 HEP A - Hepatitis A (Adult > 18 yrs) 04/11/2011, 09/20/2010 Hepatitis B, 20+ yrs 07/05/2015 Pneumococcal Conjugate Vacci ne, 20-valent (Bhtcgwc22) 03/13/2023 Pneumococcal Polysaccharide PPV23 (Pneumovax) 02/19/2018,03/09/2007 Seasonal [...] Notes * Telephone Encounter - Danielle Anderson, [facility] - 02/12/2024 2:15 PM EDT Called [employer] and spoke to sales representative leather goods to stop ozempic shipments from [facility]. Pt may send me a MyG message for sooner appt availability if need [...] Description 4 11:00 AM EDT Laboratory Laboratory, [facility] [address] [place] [address] [facility] Laboratory [address] [place] [address] 4 2:15 PM EDT Office Visit Hematology/Onco logy [place] [address] [place] [phone] Sunil Bourgeois MD [address] [address] 4 12:00 PM EDT Telemedicine Psychiatry, [place] [place] [address] [place] [address] Rj Mai MD [address] [place] [facility] [place] [address] 4 1:00 PM EDT Office Visit Pharmacy, [place] [address] [facility] [address] [facility] [address] [place] [facility] [address] 4 12:20 PM EDT Office Visit Family Practice [facility] [address] [place] [address] Scott Weldon MD [address] [place] [address] 4 12:30 PM EDT Office Visit Ophthalmology, [facility] [address] [place] [address] Rolan Self, DO [address] [place] [address] 4 11:15 AM EDT Hospital Encounter ENDO OSS, Endoscopy Room [facility] [address] [place] [address] Aj Pruett, DO [address] [place] [address] 4 11:15 AM EDT - 4 11:45 AM EDT Surgery ENDO [facility], Endoscopy Room [facility] [address] [place] [phone] Aj Pruett, DO [address] [place] [address] ESOPHAGOGASTRODUODENOSCOPY (EGD), FLEXIBLE, TRANSORAL, DIAGNOSTIC 4 11:00 AM EST Telemedicine Pharmacy, [facility] [place] [address] [facility] [place] [address] 4 1:40 PM EST Office Visit Nephrology, [facility] 200 [facility] [place] [address] Jonathan Mathew MD [address] [facility] [place] [address] 5 8:00 AM EST Office Visit Family Practice [facility] [address] [place] [address] Scott Weldon MD [address] [place] [address] Scheduled Procedures Name Priority Associated Diagnoses Date/Ti [...] this encounter Medical Devices Implanted Type Area Real Estate Associate Attorney Device Identifier Shelf Expiration Date Model / Serial / Lot Neurostimul Intellis Adaptiv - [id number] - [id number] Implanted:Qty: 1 on 08/22/2022 by Rafia Small MD at OR [facility] N/A: Spine Lumbar [employer] 06/21/2023 [id number] / [id number] / Description:battery Medtronic Lead Kit 60 Cm Implanted:Qty: 1 on 08/22/2022 by Rafia Small MD at OR [facility] N/A: Spine Lumbar 02/01/2026 [id number] / / [id number] Medtronic Lead Kit 60cm Implanted:Qty: 1 on 08/22/2022 by Rafia Small MD at OR [facility] N/A: Spine Lumbar 03/21/2026 [id number] / / [id number] Envelope Tyrx Med Antibacteril - [id number] Implanted:Qty: 1 on 08/22/2022 by Rafia Small MD at OR [facility] N/A: Spine Lumbar [employer] 03/10/2023 [id number] / / [id number] Hemostatic Clip Res 235cm - [id number] Implanted:Qty: 4 on 10/05/2023 by Aj Pruett DO at ENDOSCOPY [facility] : ENDOSCOPY 02/03/2026 [id number] / / Hemostatic Clip Res 235cm - [id number] Implanted:Qty: 1 on 10/05/2023 by Aj Pruett DO at ENDOSCOPY [facility] : ENDOSCOPY 02/02/2026 [id number] / / documented as of this encounter [...] Power of Attor narda? No Care Teams [employer] Special [employer] Teacher Relationship Specialty Start Date End Date Scott Weldon MD [address] [place] [address] PCP - General Family Medicine 08/03/18 documented as of this encounter
--- OUTSIDE RECORDS SUMMARY | 2024-05-13 05:18 | External Medical Summary | Summary of Care ---
Author Name Unknown Organization [facility] Address [address] [place] [address] Phone [phone] Care Team Providers Care Brick Handler Name Role Phone Scott Weldon MD Primary Care Provider + Reason for Visit * Reason Comments Dosage Adjustment In Person (Anticoag Cl inic) Diabetes Follow-Up Insulin Pump Encounter Details Date Type Department Care Team (Late st Contact Info) Description 02/11/2024 10:30 AM EDT Office Visit Pharmacy, [place] [address] [place] [address] [facility] [address] [place] [address] Type 2 diabetes mellitus with hemoglobin A1c goal of less than 8.0% ([facility])* Allergies Active Allergy Reactions Criticality Noted Date Comments Naproxen Sodium Bleeding High 11/29/2013 Pollen 12/03/2022 Seasonal Food (See Comments) Anaphylaxis High 04/20/2019 Hot peppers (oils) Kiwi Extract Anaphylaxis High 04/20/2019 documented as of this encounter (statuses as of 02/11/2024) Medications Medication Sig Dispensed Refills Start Date End Date Status ONETOUCH ULTRASOFT LANCETS MISCIndications:DM type 2, not at goal ([facility]) check FS 6 times daily 4 [...] Strip 5 02/17/2017 Active Insulin Infusion Pump ([facility] 630G INSULIN PUMP) KITIndications:Type 2 diabetes mellitus [...] needed for nausea. 30 Tablet 10/21/2023 Active Losartan Potassium 25 MG Oral Tablet [...] OF BREATH 18 g 5 01/07/2024 Active Baclofen 10 MG Oral Tablet (Lioresal)Indicatio ns:Back spasm Take 1 Tablet by mouth in the morning and 1 Tablet at noon and 1 Tablet before bedtime. 90 Tablet 3 01/25/2024 Active hydrOXYzine HCl 25 MG Oral Tablet TAKE 1 TAB DURING DAY EVERY 4-6 HOURS NEEDED AND TAKE 2 TABS AT BEDTIME NEEDED FOR ANXIETY 120 Tablet 1 01/28/2024 Active Meclizine HCl 25 MG Oral Tablet [...] as of this encounter (statuses as of 02/11/2024) Active Problems Problem Noted Date Diagnosed Date [...] as of this encounter (statuses as of 02/11/2024) Resolved Problems Problem Noted Date Diagnosed Date [...] Overview: Per Obesity Taxonomy Coronary atherosclerosis of kake coronary artery 09/15/2008 10/03/2008 Malaise and fatigue [...] as of this encounter (statuses as of 02/11/2024) Immunizations Name Administration Dates Next Due COVID-19 mRNA, LNP-s, No Pre serve, 2-Dose Series (Pfizer) 11/08/2020,10/11/2020 HEP A - Hepatitis A (Adult > 18 yrs) 04/11/2011, 09/20/2010 Hepatitis B, 20+ yrs 07/05/2015 Pneumococcal Conjugate Vacci ne, 20-valent (Hwmdvvr30) 03/13/2023 Pneumococcal Polysaccharide PPV23 (Pneumovax) 02/19/2018,03/09/2007 Seasonal [...] this encounter Progress Notes * Danielle Anderson, [facility] - 02/11/2024 10:36 AM EDT Images from the original note were not included. Medication Therapy Disease Management Clinic - Diabetes Management Progress Note Carmen Tyson, identified by name and date of , is a 53 year old female being seen for diabetes management/education. Patient presents for return diabetic visit. And insulin pump download DIABETES: Current diabetic medications: Metformin 1000mg once a day Ozempic 2 mg once weekly Jardiance 10 mg once daily eGFR 37 mL/min as of 01/28/24 MedElysiaG - LurnQ ([id number]) Infusion Set: Quick Set Insulin: Novolin R Basal Rate 12a-8a 2.60 u/hr 8a-1pm 4.00 u/hr 1pm - 3 [...] % 6.3* 5.8* 5.7* Recent Labs Units 01/28/24 1232 01/18/24 1105 12/16/23 1110 ESTIMATED GLOMERULAR FILTRATION RATE - [facility] mL/min 37* 42* 37* CREATININE - [facility] mg/dL 1.7* 1.5* 1.7* HYPERTENSION: Patient on ACEi/ARB: currently on hold due to kidney function BP Readings from Last 3 Encounters: 01/28/24 106/62 11/25/23 104/72 10/08/23 101/68 Blood pressure at goal: yes HYPERLIPIDEMIA: Patient [...] of less than 8.0% ([facility]) E11.9 Considerations: - activity limited by chronic low back pain - obtaining ozempic and novolin R via [facility] - prefers to use local pharmacy instead of O - RENAL function - Dexcom supplied by [facility] Medical Glycemic control is unstable and not at goal Patient agreeable to adjust medications as noted below. Basal settings decreased as glucose is falling overnight and between meals. ICR/fixed dose continued - pt is not using this functionality ISF continued - pt advised to start using this if BG is higher once jardiance is not in use. Pt informed me that she is in the donut hole and jardiance is not affordable. TE [facility]. Patient to SMBG at least 4 times daily, before each meal and at bedtime. Patient aware to contact clinic if any hypoglycemia before next visit. Reviewed rule of 15s. Reviewed appropriate management of hyperglycemia as noted in pump start documentation. MEDICATION CHANGES: yes, see below; preferred pharmacy: [facility] Diabetic Medications: Metformin 1000mg once a day Ozempic 2 mg once weekly Jardiance 10 mg once daily eGFR 37 mL/min as of 01/28/24 Medtronic VNGG - LurnQ ([id number]) Infusion Set: Quick Set Insulin: Novolin R Basal Rate (decreased at all times of the day) 12a-8a 2.30 u/hr 8a-1pm 3.6 u/hr 1pm - 3 pm 3.5 u/hr 3p - 12a 3.6 u/hr Bolus: using bolus wizard Carb ratio 1:4 Bolus wizard: on and using ISF: 1:10 Blood Glucose Goals: 100-140 Active Insulin Time: 2 hours FOLLOW UP: Return to clinic in 4 weeks 03/10/2024 I spent a total of 30-39 minutes (exact time 38 mins) on the date of service in preparation, delivery, and documentation of the care provided to Carmen Tyson excluding any time spent in the performance of separately billed services. Danielle Anderson [facility] Clinical Pharmacist - Cardiac Specialist Medication Therapy Management Clinic 02/11/24, 10:37 AM documented in this encounter Plan of Treatment Upcoming Encounters Date Type Department Care Team (Latest Contact Info) Description 4 10:40 AM EDT Office Visit [place] [address] [place] [address] Scott Weldon MD [address] [place] [address] 4 2:15 PM EDT Office Visit Hematology/Onco logy [facility] [address] [place] [phone] Sunil Bourgeois MD [address] [place] [address] 4 12:00 PM EDT Telemedicine Psychiatry, [address] [place] [address] Rj Mai MD [address] [place] [address] 4 1:00 PM EDT Office Visit Pharmacy, [address] [address] [place], [facility] [address] [place] [address] 4 12:20 PM EDT Office Visit [place] [address] [place] [address] Scott Weldon MD [address] [place] [address] 4 12:30 PM EDT Office Visit Ophthalmology, [facility] [address] [place] [address] Rolan Self, DO [address] [place] [address] 4 11:15 AM EDT Hospital Encounter ENDO OSSC, Endoscopy Room [facility] [address] [place] [phone] Aj Pruett, DO [address] [place] [address] 4 11:15 AM EDT - 4 11:45 AM EDT Surgery ENDO O[facility], Endoscopy Room [facility] [address] [place] [address] Aj Pruett, DO [address] [place] [address] ESOPHAGOGASTRODUODENOSCOPY (EGD), FLEXIBLE, TRANSORAL, DIAGNOSTIC 4 11:00 AM EST Telemedicine Pharmacy, [facility] [address] [place] [address] [facility] [address] [place] [address] 4 1:40 PM EST Office Visit Nephrology, [place] [address] [place] [address] Jonathan Mathew MD [address] [address] 5 8:00 AM EST Office Visit Family Practice [facility] [address] [place] [address] Scott Weldon MD [address] [place] [address] Scheduled Procedures Name Priority Associated Diagnoses Date/Ti [...] this encounter Medical Devices Implanted Type Area Physician Assistant Psychiatry Device Identifier Shelf Expiration Date Model / Serial / Lot Neurostimul Intellis Adaptiv - [id number] - [id number] Implanted:Qty: 1 on 08/22/2022 by Rafia Small MD at OR [facility] N/A: Spine Lumbar [employer] 06/21/2023 [id number] / [id number] / Description:battery Medtronic Lead Kit 60 Cm Implanted:Qty: 1 on 08/22/2022 by Rafia Small MD at OR [facility] N/A: Spine Lumbar 02/01/2026 [id number] / / [id number] Medtronic Lead Kit 60cm Implanted:Qty: 1 on 08/22/2022 by Rafia Small MD at OR [facility] N/A: Spine Lumbar 03/21/2026 [id number] / / [id number] Envelope Tyrx Med Antibacteril - [id number] Implanted:Qty: 1 on 08/22/2022 by Rafia Small MD at OR [facility] N/A: Spine Lumbar [employer] 03/10/2023 [id number] / / [id number] Hemostatic Clip Res 235cm - [id number] Implanted:Qty: 4 on 10/05/2023 by Aj Pruett DO at ENDOSCOPY [facility] : ENDOSCOPY 02/03/2026 [id number] / / Hemostatic Clip Res 235cm - [id number] Implanted:Qty: 1 on 10/05/2023 by Aj Pruett DO at ENDOSCOPY [facility] : ENDOSCOPY 02/02/2026 [id number] / / documented as of this encounter [...] Power of Attor narda? No Care Teams Brick Handler Relationship Specialty Start Date End Date Scott Weldon MD [address] [place] [address] PCP - General Family Medicine 08/03/18 documented as of this encounter
--- OUTSIDE RECORDS SUMMARY | 2024-05-13 05:18 | External Medical Summary | Summary of Care ---
Author Name Unknown Organization [facility] Address [address] [place] [address] Phone [phone] Care Team Providers Care Loan Approver Name Role Phone Scott Weldon MD Primary Care Provider + Reason for Visit * Reason Onset Date Comments Patient Assistance Program 02/11/2024 Sangeeta mckeon Encounter Details Date Type Department Care Team (Late st Contact Info) Description 02/11/2024 Telephone Pharmacy, [address] [address] [facility] [address] [place] [address] Patient Assistance Program (Christiano) Allergies Active Allergy Reactions Criticality Noted Date [...] Strip 5 02/17/2017 Active Insulin Infusion Pump (MINIMLicense Buddy 630G INSULIN PUMP) KITIndications:Type 2 diabetes mellitus with hemoglobin A1c goal of less than 8.0% ([facility] [place]) Use as directed. 07/30/2017 Active CPAP every [...] suspected opioid overdose. Seek immediate medical attention. [email or web address]://[email or web address] .[email or web address]/watch?v=v26cDa [email or web address] 1 Each 3 11/27/2022 Active [...] - [place]) Take 1 Tablet by mouth daily. Dose [...] yrs 07/05/2015 Pneumococcal Conjugate Vacci ne, 20-valent ([id number]) 03/13/2023 Pneumococcal Polysaccharide PPV23 (Pneumovax) 02/19/2018,03/09/2007 Seasonal [...] No 10/07/2023 Does the household have a [facility] source [facility] income? (Household - for [...] encounter Miscellaneous Notes * Telephone Encounter - Alissa Pendleton OSA - 02/11/2024 1:35 PM EDT Patient Assistance Name of Medication: Jardiance Was patient spoken to: : YES Type of assistance: Pharmacy Liane Applications mailed: : YES Follow up: Called and spoke to member, applications sent and I will FU in 2 weeks to make sure theywere received Alissa Pendleton Medication Agricultural Technician II [facility] 02/11/2024,1:35 PM * Telephone Encounter - Danielle Anderson RPh - 02/11/2024 10:44 AM EDT Patient is unable to afford their prescription and would like assistance in getting this medication. Please see the following for further information regarding this request: Medication: Jardiance 10 mg Clinic location: [facility] Reason pt cannot pick-up: cost- in donut hole Initial therapy?: no Has pt been without med?: she has 3 pills left Patient's contact #: [phone]; or [facility] Pt would like to explore their options for obtaining this medication. Please advise pt at the phonenumber listed above. Thank you. Thanks, Danielle Anderson, PharmD, BCACP Clinical Pharmacist Medication Therapy Disease Management 02/11/2024, 10:45 AM documented in this encounter Plan of Treatment Upcoming Encounters Date Type Department Care Team (Latest Contact Info) Description 10:40 AM EDT Office Visit [address] [place] [address] Scott Weldon MD [address] [place] [address] 4 2:15 PM EDT Office Visit Hematology/[facility]co [facility] [address] [place] [phone] Sunil Bourgeois MD [address] [place] [address] 4 12:00 PM EDT Telemedicine Psychiatry, [facility] [address] [place], [place] [address] Rj Mai MD [address] [place] [address] 4 1:00 PM EDT Office Visit Pharmacy, [place] [address] [place] [address] [facility] [address] [place] [address] 4 12:20 PM EDT Office Visit Family Practice [facility] 132 [facility] [place] [address] Scott Weldon MD 132 [facility] [place] [address] 4 12:30 PM EDT Office Visit Ophthalmology, [facility] [place] [address] Rolan Self, DO [address] [place] [address] 4 11:15 AM EDT Hospital Encounter ENDO [facility], Endoscopy Room [facility] [address] [place] [phone] Aj Pruett, DO [address] [place] [address] 4 11:15 AM EDT - 4 11:45 AM EDT Surgery ENDO [facility], Endoscopy Room [facility] [address] [place] [phone] Aj Pruett, DO [address] [place] [address] ESOPHAGOGASTRODUODENOSCOPY (EGD), FLEXIBLE, TRANSORAL, DIAGNOSTIC 4 11:00 AM EST Telemedicine Pharmacy, [facility] [address] [place] [address] [facility] [address] [place] [address] 4 1:40 PM EST Office Visit Nephrology, [facility] 200 [facility] [place] [address] Jonathan Mathew MD [address] [place] [address] 5 8:00 AM EST Office Visit Family Practice [facility] [address] [place] [address] Scott Weldon MD [address] [place] [address] Scheduled Procedures Name Priority Associated Diagnoses Date/Ti ri ESOPHAGOGASTRODUODENOSCOPY ( EGD), FLEXIBLE, TRANSORAL, DIAGNOSTIC Portal [...] this encounter Medical Devices Implanted Type Area Millwright Instructor Device Identifier Shelf Expiration Date Model / Serial / Lot Neurostimul Intellis Adaptiv - [id number] - [id number] Implanted:Qty: 1 on 08/22/2022 by Rafia Small MD at OR [facility] N/A: Spine Lumbar [employer] 06/21/2023 [id number] / [id number] / Description:battery Medtronic Lead Kit 60 Cm Implanted:Qty: 1 on 08/22/2022 by Rafia Small MD at [facility] N/A: Spine Lumbar 02/01/2026 [id number] / / [id number] Medtronic Lead Kit 60cm Implanted:Qty: 1 on 08/22/2022 by Rafia Small MD at OR [facility] N/A: Spine Lumbar 03/21/2026 [id number] / / [id number] Envelope Tyrx Med Antibacteril - [id number] Implanted:Qty: 1 on 08/22/2022 by Rafia Small MD at OR [facility] N/A: Spine Lumbar [employer] 03/10/2023 [id number] / / [id number] Hemostatic Clip Res 235cm - [id number] Implanted:Qty: 4 on 10/05/2023 by Aj Pruett DO at ENDOSCOPY [facility] ENDOSCOPY 02/03/2026 [id number] / / Hemostatic Clip Res 235cm - [id number] Implanted:Qty: 1 on 10/05/2023 by Aj Pruett DO at ENDOSCOPY [facility] : ENDOSCOPY 02/02/2026 [id number] / / documented as of this encounter [...] Power of Attor narda? No Care Teams Loan Approver Relationship Specialty Start Date End Date Scott Weldon MD [address] [place] [address] PCP - General Family Medicine 08/03/18 documented as of this encounter
--- OUTSIDE RECORDS SUMMARY | 2024-05-13 05:18 | External Medical Summary | Summary of Care ---
Author Name Unknown Organization [facility] Address [address] [place] [address] Phone [phone] Care Team Providers Care Undercollar Maker Name Role Phone Scott Weldon MD Primary Care Provider + Reason for Visit * Reason Onset Date Comments Patient Assistance Program 02/11/2024 Sangeeta mckeon Encounter Details Date Type Department Care Team (Late st Contact Info) Description 02/11/2024 Telephone Pharmacy, [address] [address] [facility] [address] [place] [address] Patient Assistance Program (Christiano) Allergies Active Allergy [...] Strip 5 02/17/2017 Active Insulin Infusion Pump (MINIMManaged Methods 630G INSULIN PUMP) KITIndications:Type 2 diabetes mellitus with hemoglobin A1c goal of less than 8.0% ([facility]) Use as directed. 07/30/2017 Active CPAP [...] suspected opioid overdose. Seek immediate medical attention. [email or web address]?v=v26cDa [email or web address] 1 Each 3 11/27/2022 Active [...] than 8.0% ([facility]) Take 1 Tablet by mouth daily. Dose [...] yrs 07/05/2015 Pneumococcal Conjugate Vacci ne, 20-valent (Iiwwyen51) 03/13/2023 Pneumococcal Polysaccharide PPV23 (Pneumovax) 02/19/2018,03/09/2007 Seasonal [...] Does the household have a [facility] source of income? (Household - for ages [...] Notes * Telephone Encounter - Danielle Anderson [facility] - 02/11/2024 10:44 AM EDT Patient is unable to afford their prescription and would like assistance in getting this medication. Please see the following for further information regarding this request: Medication: Jardiance 10 mg Clinic location: [facility] Reason pt cannot pick-up: cost- in donut hole Initial therapy?: no Has pt been without med?: she has 3 pills left Patient's contact #: [phone]; or [facility] Pt would like to explore their options for obtaining this medication. Please advise pt at the phonenumber listed above. Thank you. Thanks, Danielle Anderson, PharmD, BCACP Clinical Pharmacist Medication Therapy Disease Management 02/11/2024, 10:45 AM documented in this encounter Plan of Treatment Upcoming Encounters Date Type Department Care Team (Latest Contact Info) Description 4 10:40 AM EDT Office Visit Family [facility] [address] [address] Scott Weldon MD [address] [place] [address] 4 2:15 PM EDT Office Visit Hematology/[place] [facility] [address] [place] [phone] Sunil Bourgeois MD [address] [place] [address] 4 12:00 PM EDT Telemedicine Psychiatry, R[facility] Melendez [address] [place] [address] Rj Mai MD [address] [place] [facility] [address] 4 1:00 PM EDT Office Visit [place] [address] [address] [facility] [place] [address] [facility] [address] [place] [facility] [place] [address] 4 12:20 PM EDT Office Visit Family Practice [facility] [address] [place] [address] Scott Weldon MD [address] [facility] [place] [address] 4 12:30 PM EDT Office Visit Ophthalmology, [facility] [address] [facility] [place] [address] Rolan Self, DO [address] [facility] [address] 4 11:15 AM EDT Hospital Encounter [facility], Endoscopy Room [facility] [address] [place] [address] Aj Pruett, DO [address] [place], [place] [address] 4 11:15 AM EDT - 4 11:45 AM EDT Surgery ENDO [facility], Endoscopy Room [facility] [address] [place] [address] Aj Pruett, DO [address] [place] [address] ESOPHAGOGASTRODUODENOSCOPY (EGD), FLEXIBLE, TRANSORAL, DIAGNOSTIC 4 11:00 AM EST Telemedicine Pharmacy, [facility] [place] [address] [facility] [place] [address] 4 1:40 PM EST Office Visit Nephrology, [facility] [address] [place] [address] Jonathan Mathew MD 200 [facility] [place] [address] 5 8:00 AM EST Office Visit Family Practice [facility] [place] [address] Scott Weldon MD [address] [place] [address] Scheduled Procedures Name Priority Associated Diagnoses Date/Ti [...] this encounter Medical Devices Implanted Type Area Ed Physicians Device Identifier Shelf Expiration Date Model / Serial / Lot Neurostimul Intellis Adaptiv - [id number] - [id number] Implanted:Qty: 1 on 08/22/2022 by Rafia Small MD at OR [facility] N/A: Spine Lumbar [employer] 06/21/2023 [id number] / [id number] / Description:battery Medtronic Lead Kit 60 Cm Implanted:Qty: 1 on 08/22/2022 by Rafia Small MD at OR [facility] N/A: Spine Lumbar 02/01/2026 [id number] / / [id number] Medtronic Lead Kit 60cm Implanted:Qty: 1 on 08/22/2022 by Rafia Small MD at OR [facility] N/A: Spine Lumbar 03/21/2026 [id number] / / [id number] Envelope Tyrx Med Antibacteril - [id number] Implanted:Qty: 1 on 08/22/2022 by Rafia Small MD at OR [facility] N/A: Spine Lumbar [employer] 03/10/2023 [id number] / / [id number] Hemostatic Clip Res 235cm - [id number] Implanted:Qty: 4 on 10/05/2023 by Aj Pruett DO at ENDOSCOPY [facility] END[facility] 02/03/2026 [id number] / / Hemostatic Clip Res 235cm - [id number] Implanted:Qty: 1 on 10/05/2023 by Aj Pruett DO at ENDOSCOPY [facility] : ENDOSCOPY 02/02/2026 [id number] / / documented as of this encounter [...] Power of Attor narda? No Care Teams Undercollar Maker Relationship Specialty Start Date End Date Scott Weldon MD [address] [place] [address] PCP - General Family Medicine 08/03/18 documented as of this encounter
--- OUTSIDE RECORDS SUMMARY | 2024-05-13 05:18 | External Medical Summary | Summary of Care ---
Author Name Unknown Organization [facility] Address [address] [address] [address] Phone [phone] Care Team Providers Care Fisher Spear Name Role Phone Scott Weldon MD Primary Care Provider + Reason for Visit * Reason Comments Hospital Follow-Up [facility] 02/01-02/03: Hypo tension, EVA Encounter Details Date Type Department Care Team (Late st Contact Info) Description 02/12/2024 10:40 AM EDT Office Visit [facility] [address] [place] [id number] Scott Weldon MD [address] [address] Hypotension, unspecified hypotension type*; Cirrhosis of liver without ascites, unspecified hepatic cirrhosis type (HCC); Elevated lipase; Type 2 diabetes mellitus with hemoglobin A1c goal of less than 8.0% (HCC); Thrombocytopenia (HCC) Allergies Active Allergy Reactions Criticality Noted Date Comments Naproxen Sodium Bleeding High 11/29/2013 Pollen 12/03/2022 Seasonal Food (See Comments) Anaphylaxis High 04/20/2019 Hot peppers (oils) Kiwi Extract Anaphylaxis High 04/20/2019 documented as of this encounter (statuses as of 02/12/2024) Medications Medication Sig Dispensed Refills Start Date End Date Status ONETOUCH ULTRASOFT LANCETS MISCIndications:DM type 2, not at goal ([facility]) check FS 6 times daily 4 Box 5 5 Active insulin glargine (LANTUS SOLOSTAR) 100 UNIT/ML SOPN 50 units daily in case of pump malfunction 5 Pre-filled Pen Syringe Dosing Unit 3 6 Active B-D Ultrafine III, 5MM, Pen MISC Use as directed. 100 Pre-filled Pen Syringe Dosing Unit 3 6 Active Glucose Blood (WhipCar CONTOUR NEXT TEST) STRP Use to test blood sugar up to 6 times per day. E11.9 These are the ONLY test strips patient can use with insulin pump 200 Strip 5 7 Active Insulin Infusion Pump ([employer] 630G INSULIN PUMP) KITIndications:Type 2 diabetes mellitus with hemoglobin A1c goal of less than 8.0% ([facility]) Use as directed. 8 Active CPAP [...] suspected opioid overdose. Seek immediate medical attention. [email or web address]://[email or web address]/watch?v=[email or web address] 1 Each 3 3 Active Loratadine 10 [...] less than 8.0% ([facility]) Take 1 Tablet by mouth daily. [...] morning and 1 Tablet before bedtime. Active Atenolol 100 MG Oral Tablet (Tenormin)Indicatio ns:Tachycardia TAKE 1 TABLET BY MOUTH TWICE A DAY 180 Tablet 3 3 02/12/20 24 Discontinu ed(Medicat ion/Dose Changed) Losartan Potassium 25 MG Oral Tablet (Cozaar)Indications :HTN, goal below 130/80 Take 1 Tablet by mouth every night at bedtime. 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 09/15/2008 10/03/2008 Malaise and fatigue [...] mRNA, LNP-s, No Pre serve, 2-Dose Series (Superplayer) 11/08/2020,10/11/2020 HEP A - Hepatitis A (Adult > 18 yrs) 04/11/2011, 09/20/2010 Hepatitis B, 20+ yrs 07/05/2015 Pneumococcal Conjugate Vacci ne, 20-valent ([id number]) 03/13/2023 Pneumococcal Polysaccharide PPV23 (Pneumovax) 02/19/2018,03/09/2007 Seasonal [...] Sign Reading Time Taken Comments Blood Pressure 100/68 02/12/2024 10:50 AM EDT Pulse 86 02/12/2024 10:50 AM EDT Temperature 36.7 C (98 F) 02/12/2024 10: 50 AM EDT Respiratory Rate 18 02/12/2024 10:5 0 AM EDT Oxygen Saturation 95% 02/12/2024 10: 50 AM EDT Inhaled Oxygen Concentration - - Weight 104.9 kg (231 lb 3.2 oz) 024 10:50 AM EDT Height 162.6 cm (5' 4") 02/12/2024 10:5 0 AM EDT Body Mass Index 39.69 02/12/2024 10:50 AM EDT documented in this [...] Progress Notes * Scott Weldon MD - 02/12/2024 11:29 AM EDT SUBJECTIVE: Carmen Tyson is a 53 year old female here for Hospital Follow-Up ([facility] 02/01- 02/03: Hypotension, EVA) . For evaluation hospital follow-up. She was admitted on February 01 and discharged on February 03. Patient had several days of increasing upper abdominal pain left and right-sided. Her usual chronic pain in his right upper quadrant but she has had history of pancreatitis with some left and upper back pain in the past as well. [place] somewhat similar to that. She had also fallen from a ladder 2 weeksprior. She had worsening abdominal pain and lightheaded. Blood pressure systolic was low at home inthe 80s so was brought to the Emergency Room. In the hospital she was found to have acute kidney insufficiency creatinine was 2.3 on admission. Her antihypertensives were stopped during hospitalization given IV fluids. She was decreased on her atenolol to 25 mg twice a day and Lasix was decreased to every other day. Spironolactone and losartan were both stopped. She has not been checking blood pressures at home. She continues to feel very fatigued. Still with upper abdominal pain bilateral withback pain. Butrans patches somewhat helpful for pain she thinks. Has been the best thing for pain past. No fever. Occasional chills. Chronic nausea little worse than normal. Occasional loose stools occasional constipation. She has been burping and passing gas more than normal. ROS: Negative except above. Past Medical History: Diagnosis Date Abdominal pain, [...] Insulin pump in place 05/05/2017 Kidney stone 2011 x 2 Left hemiplegia (HCC) 10/06/2018 Liver [...] DIAGNOSTIC performed by Aj Pruett DO at[facility]COPY [facility] COLONOSCOPY, DIAGNOSTIC (RECTUM) 10/05/2023 hemorrhoids/biopsies show hyperplastic and inflammatory tissue/recall 5 years/COLONOSCOPY FLEXIBLE PROXIMAL DIAGNOSTIC performed by Aj Pruett DO at ENDOSCOPY [facility] EGD, FLEXIBLE, DIAGNOSTIC 01/22/2011 UPPER GI ENDOSCOPY DIAGNOSTIC performed by STACEY BENNETT at ENDOSCOPY [facility] EGD, FLEXIBLE, DIAGNOSTIC 01/19/2014 portal hypertensive gastropathy, benign gastric polyp, repeat 2 yrs/done @ [facility] EGD, FLEXIBLE, DIAGNOSTIC 02/08/2016 normal bx, portal hypertensive gastropathy, repeat 1.5 yrs/[facility] EGD, FLEXIBLE, DIAGNOSTIC 08/25/2017 retained food, repeat 1 yr/ESOPHAGOGASTRODUODENOSCOPY (EGD), FLEXIBLE, TRANSORAL, DIAGNOSTIC performed by Aj Pruett DO at ENDOSCOPY [facility] EGD, FLEXIBLE, DIAGNOSTIC 12/15/2018 esophageal varices, gastritis, gastric polyp, repeat 1 yr/ESOPHAGOGASTRODUODENOSCOPY (EGD), FLEXIBLE, TRANSORAL, DIAGNOSTIC performed by Aj Pruett DO at ENDOSCOPY [facility] EGD, FLEXIBLE, DIAGNOSTIC 01/31/2020 fundic polyps, eso varices, portal hypertensive gastropathy, repeat 1 yr / ESOPHAGOGASTRODUODENOSCOPY (EGD), FLEXIBLE, TRANSORAL, DIAGNOSTIC performed by Aj Pruett DO at ENDOSCOPY [facility] EGD, FLEXIBLE, DIAGNOSTIC 10/09/2022 grade I esophageal varices/portal hypertension gastropathy/medium amount of food in stomach/ESOPHAGOGASTRODUODENOSCOPY (EGD), FLEXIBLE, TRANSORAL, DIAGNOSTIC performed by Aj Pruett DO at ENDOSCOPY [facility] EGD, FLEXIBLE, DIAGNOSTIC 10/05/2023 grade II esophageal varices/portal hypertensive gastropathy/multiple gastric polyps, resected and retrieved, clips placed/biopsies show fundic polyps/repeat 6 months/ESOPHAGOGASTRODUODENOSCOPY (EGD),FLEXIBLE, TRANSORAL, DIAGNOSTIC performed by Aj Pruett DO at ENDOSCOPY [facility] EGD, FLEXIBLE, W/BIOPSY 07/27/2012 small fundic stomach polyp/inflammation r/t reflux-repeat EGD in 1 yr EGD, W/ENDOSCOPIC US 01/22/2011 UPPER GI ENDOSCOPY ENDOSCOPIC ULTRASOUND performed by STACEY BENNETT at ENDOSCOPY [facility] EVAL NEUROSTIM PULSE GEN, W/ REPROGRAM N/A 06/27/2022 NEUROSTIMULATOR PULSE GENERATOR/ TRANSMITTER, WITH INTRAOPERATIVE OR SUBSEQUENT PROGRAMMING performed by Rafia Small MD at OR [facility] EVAL NEUROSTIM PULSE GEN, W/ REPROGRAM N/A 08/22/2022 NEUROSTIMULATOR PULSE GENERATOR/ TRANSMITTER, WITH INTRAOPERATIVE OR SUBSEQUENT PROGRAMMING performed by Rafia Small MD at OR [facility] HYSTEROSCOPY,DIAGNOSTIC 07/16/2006 NovaSure endomentrial ablation IMPLANT EPIDURAL NEUROELECTRODES N/A 06/27/2022 PERCUTANEOUS IMPLANTATION NEUROSTIMULATOR EPIDURAL performed by Rafia Small MD at [facility] IMPLANT EPIDURAL NEUROELECTRODES N/A 08/22/2022 PERCUTANEOUS IMPLANTATION NEUROSTIMULATOR EPIDURAL performed by Rafia Small MD at OR [facility] IMPLANT SPINAL NEURORECEIVER N/A 08/22/2022 INSERTION OR REPLACEMENT SPINAL NEUROSTIMULATOR GENERATOR performed by Rafia Small MD at[facility] INJECT DX/THER SUBSTANCE INTERLAMINAR LUMBAR/SACRAL W IMAGE GUIDE 04/13/2017 INJECTION SPINE LUMBAR OR SACRAL performed by Rene Kate DO at OR [facility] INJECT DX/THER SUBSTANCE INTERLAMINAR LUMBAR/SACRAL W IMAGE GUIDE 12/10/2017 INJECTION SPINE LUMBAR OR SACRAL performed by Rene Kate DO at OR [facility] INSER TUNN ACC DEV;5 YRS/OLDER 03/24/2013 03/24/2013 at [facility], Placement of A-Port central venous access catheter with port Dr. 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 (Adult - for ages 18 years and over): No Does your family have trouble paying for medicine? (Household - for ages 0-17 years): Not on file Food Insecurity: No Food Insecurity (10/07/2023) Food Insecurity Do you need food for this week? (Adult - for ages 18 years and over): No Are you able to get enough food for your family? (Household - for ages 0-17 years): Not on file Does your family need food this week? (Household - for ages 0-17 years): Not on file Do you always have enough food for your family? (Household - for ages 0-17 years): Not on file Transportation Needs: Unmet Transportation Needs (10/07/2023) Transportation Needs Do you have trouble getting a ride to medical visits or work? (Adult - for ages 18 years and over):Sometimes True Does your family have a hard time getting a ride to doctors visits? (Household - for ages 0-17 years): Not on file Has lack of transportation kept you from medical appointments, meetings, work, or from getting things needed for daily living? Check all that apply. (Adult - for ages 18 years and over): Not on file Do you (or your family) have trouble finding or paying for a ride (transportation)? (Household - for ages 0-17 years): Not on file Social Connections: Socially Integrated (10/07/2023) Social Connections How often do you feel lonely or isolated from those around you? (Adult - for ages 18 years and over): Sometimes Housing Stability: Low Risk (10/07/2023) Housing Stability Do you currently live in a fpc or have no steady place to sleep at night? (Adult - for ages 18 years and over): No Do you think you are at risk of becoming homeless? (Adult - for ages 18 years and over): No Does your family worry about paying for your home or becoming homeless? (Household - for ages 0-17 years): Not on file Are you homeless or worried that you might be in the future? (Adult - for ages 18 years and over): Not on file Are you (or your family) homeless or worried that you might be in the future? (Household - for ages0-17 years): Not on file Family History Problem Relation Name Age of [...] Hypertension Brother No Past Hx Sister 15yo Current Outpatient Medications Medication Sig Dispense Refill Atenolol 25 MG Oral Tablet (Tenormin) Take 1 Tablet by mouth in the morning and 1 Tablet before bedtime. ONETOUCH ULTRASOFT LANCETS MISC check FS 6 [...] pump 200 Strip 5 Insulin Infusion Pump ([employer] 630G INSULIN PUMP) KIT Use as directed. [...] for suspectedopioid overdose. Seek immediate medical attention. https://www.youtube.com/[email or web address]?v=[email or web address] 1 Each 3 Loratadine 10 MG Oral [...] by mouth at bedtime.) 90 Tablet 3 Furosemide 40 MG Oral Tablet (Lasix) Take 1 Tablet by mouth every other day. Magnesium Oxide -Mg Supplement 400 (240 Mg) MG Oral Tablet (Mag-Ox) Take 1 Tablet by mouth in the morning. 90 Tablet 3 Metoclopramide HCl 5 MG Oral Tablet (Reglan) Take 1 Tablet by mouth in the morning and 1 Tablet at noon and 1 Tablet in the evening. Take before meals. If needed for nausea. 30 Tablet 0 Empagliflozin 10 MG Oral Tablet (Jardiance) [...] FOR SHORTNESS OF BREATH 18 g 5 Baclofen 10 MG Oral Tablet (Lioresal) Take 1 Tablet by mouth in the morning and 1 Tablet at noon and 1 Tablet before bedtime. 90 Tablet 3 hydrOXYzine HCl 25 MG Oral Tablet TAKE 1 TAB DURING DAY EVERY 4-6 HOURS NEEDED AND TAKE 2 TABS AT BEDTIME NEEDED FOR ANXIETY 120 Tablet 1 Meclizine HCl 25 MG Oral Tablet (Antivert) Take 1 Tablet by mouth 3 times a day as needed for Dizziness. 30 Tablet 1 Buprenorphine 5 MCG/HR Transdermal Patch Weekly (Butrans) Place 1 Patch topically on the skin once a week. 4 Patch 0 Eszopiclone 2 MG Oral Tablet (Lunesta) Take 1 Tablet by mouth at bedtime. 30 Tablet 0 No current facility-administered medications for this visit. Physical: BP 100/68 | Pulse 86 | Temp 36.7 C (98 F) (Tympanic) | Resp 18 | Ht 1.626 m (5' 4") | Wt 104.9 kg (231 lb 3.2 oz) | SpO2 95% | BMI 39.69 kg/m | BSA 2.18 m General-No apparent Distress Head, Eyes, Ears, Nose, Throat--Normocephalic, atraumatic Neck-Supple Lymph-no lymphadenopathy Lungs-Clear to Auscultation bilaterally Cardiovascular--Regular rate & Rhythm, +s1, s2, no murmur Abdomen-soft, +general b/l UQ tender, nondistended + bowel sounds NO rebound Extremities--no edema Neuro-alert & oriented x3 (I95.9) Hypotension, unspecified hypotension type (primary encounter diagnosis) Plan: d/c atenolol--BP remains low. Cont lasix every other day Labs reviewed. Cr improved (K74.60) Cirrhosis of liver without ascites, unspecified hepatic cirrhosis type (HCC) Plan: cont mgmt F/u GI (R74.8) Elevated lipase Plan: borderline--GI f/u Cont Butrans for pain mgt (E11.9) Type 2 diabetes mellitus with hemoglobin A1c goal of less than 8.0% (HCC) Plan: cont mgmt, f/u MTM (D69.6) Thrombocytopenia (HCC) Plan: CBC shows plat now in 60s--has heme f/u in 2 weeks. Krishna labs 1mo before visit (This note was completed using the dictation program Fluency Direct. As such, there may be misspellings, word substitutions, or other variations that should not change the essence of the clinical content of this encounter note.If there is need for further clarification, please direct questions to the provider listed above.) Scott Weldon MD documented in this encounter Nursing Notes * Kathie Soares LPN - 02/12/2024 10:50 AM EDT The patient has been properly identified by confirmation of name and date of . Chief Complaint Patient presents with Hospital Follow-Up [facility] 02/01-02/03: Hypotension, EVA documented in this encounter Plan of Treatment Upcoming Encounters Date Type Department Care Team (Latest Contact Info) Description 4 11:00 AM EDT Laboratory Laboratory, [place] [address] [place] [phone] [facility] [address] [place] [address] 4 2:15 PM EDT Office Visit Hematology/[place] Michelle [address] [phone] Sunil Bourgeois MD [address] [facility] [place] [address] [place] [address] 4 12:00 PM EDT [facility] [address] [address] Rj Mai MD [address] [place] [address] 4 1:00 PM EDT Office Visit Pharmacy, [place] [address] [facility] [place] [address] [facility] [address] [place] [facility] [place] [address] 4 12:20 PM EDT Office Visit Family Practice [facility] [address] [place] [address] Scott Weldon MD [address] [place] [address] 4 12:30 PM EDT Office Visit Ophthalmology, [facility] [address] [place] [address] Rolan Self, DO [address] [place] [address] 4 11:15 AM EDT Hospital Encounter ENDO [facility], Endoscopy Room [facility] [address] [place] [phone] Aj Pruett, DO [address] [place] [address] 4 11:15 AM EDT - 4 11:45 AM EDT Surgery ENDO [facility], Endoscopy Room [facility] [address] [place] [phone] Aj Pruett, DO [address] [place], [place] [address] ESOPHAGOGASTRODUODENOSCOPY (EGD), FLEXIBLE, TRANSORAL, DIAGNOSTIC 4 11:00 AM EST Telemedicine Pharmacy, [facility] [address] [place] [address] [facility] [address] [place] [address] 4 1:40 PM EST Office Visit Nephrology, [facility] [address] [facility] [place] [address] Jonathan Mathew MD [address] [facility] [place] [address] 5 8:00 AM EST Office Visit Family Practice [facility] [address] [place] [address] Scott Weldon MD [address] [place] [address] Scheduled Orders Name Type Priority Associated Diagnoses Orde r Schedule CBC WITH WBC DIFFERENTIAL AND ANEMIA REFLEX WORKUP Lab Routine Cirrhosis of liver without ascites, unspecified hepatic cirrhosis type (HCC) Type 2 diabetes mellitus with hemoglobin A1c goal of less than 8.0% (HCC) Thrombocytopenia (HCC) Expected: 03/09/2024 (Approximate), Expires: 02/11/2025 COMPREHENSIVE METABOLIC PANEL Lab Routine Cirrhosis of liver without ascites, unspecified hepatic cirrhosis type (HCC) Type 2 diabetes mellitus with hemoglobin A1c goal of less than 8.0% (HCC) Thrombocytopenia (HCC) Expected: 03/09/2024 (Approximate), Expires: 02/11/2025 LIPASE Lab Routine Cirrhosis of liver without ascites, unspecified hepatic cirrhosis type (HCC) Type 2 diabetes mellitus with hemoglobin A1c goal of less than 8.0% (HCC) Thrombocytopenia (HCC) Expected: 03/09/2024 (Approximate), Expires: 02/11/2025 Scheduled Procedures Name Priority Associated Diagnoses Date/Ti [...] this encounter Medical Devices Implanted Type Area Yield Improvement Engineer Device Identifier Shelf Expiration Date Model / Serial / Lot Neurostimul Intellis Adaptiv - [id number] - [id number] Implanted:Qty: 1 on 08/22/2022 by Rafia Small MD at OR [facility] N/A: Spine Lumbar [employer] 06/21/2023 [id number] / [id number] / Description:battery Medtronic Lead Kit 60 Cm Implanted:Qty: 1 on 08/22/2022 by Rafia Small MD at OR [facility] N/A: Spine Lumbar 02/01/2026 [id number] / / [id number] Medtronic Lead Kit 60cm Implanted:Qty: 1 on 08/22/2022 by Rafia Small MD at OR [facility] N/A: Spine Lumbar 03/21/2026 [id number] / / [id number] Envelope Tyrx Med Antibacteril - [id number] Implanted:Qty: 1 on 08/22/2022 by Rafia Small MD at OR [facility] N/A: Spine Lumbar [employer] 03/10/2023 [id number] / / [id number] Hemostatic Clip Res 235cm - [id number] Implanted:Qty: 4 on 10/05/2023 by Aj Pruett DO at ENDOSCOPY [facility] ENDOSCOPY 02/03/2026 [id number] / / Hemostatic Clip Res 235cm - [id number] Implanted:Qty: 1 on 10/05/2023 by Aj Pruett DO at ENDOSCOPY [facility] [employer] : ENDOSCOPY 02/02/2026 [id number] / / documented as of this encounter Visit Diagnoses Diagnosis Hypotension, unspecified hypotension type- Primary Cirrhosis of liver without ascites, unspecified hepatic cirrhosis type (HCC) Elevated lipase Other nonspecific abnormal serum enzyme levels Type 2 diabetes mellitus with hemoglobin A1c [...] Power of Attor narda? No Care Teams Fisher Spear Relationship Specialty Start Date End Date Scott Weldon MD [address] [address] PCP - General Family Medicine 08/03/18 documented as of this encounter
--- OUTSIDE RECORDS SUMMARY | 2024-05-13 05:18 | External Medical Summary | Summary of Care ---
Author Name Unknown Organization [facility] Address [address] [facility] [address] Phone [phone] Care Team Providers Care Bell Hole Digger Name Role Phone Scott Weldon MD Primary Care Provider + Reason for Visit * Reason Comments Outpatient Testing Encounter Details Date Type Department Care Team (Late st Contact Info) Description 02/11/2024 11:30 AM EDT Laboratory Laboratory, [place] [address] [place] [address] [place], [facility] [address] [place] [address] Elevated lipase; LUQ pain Allergies Active Allergy Reactions Criticality [...] Strip 5 02/17/2017 Active Insulin Infusion Pump (MINIMDeskarma 630G INSULIN PUMP) KITIndications:Type 2 diabetes mellitus with hemoglobin A1c goal of less than 8.0% ([facility]) Use as directed. 07/30/2017 Active CPAP [...] suspected opioid overdose. Seek immediate medical attention. [email or web address]/watch?v=v26cDa [email or web address] 1 Each 3 11/27/2022 Active [...] ([facility]) Take 1 Tablet by mouth daily. [...] yrs 07/05/2015 Pneumococcal Conjugate Vacci ne, 20-valent ([id number]) 03/13/2023 Pneumococcal Polysaccharide PPV23 (Pneumovax) 02/19/2018,03/09/2007 Seasonal [...] No 10/07/2023 Does the household have a [facility] source of income? (Household - for [...] Description 4 10:40 AM EDT Office Visit [facility] [address] [place] [address] Scott Weldon MD [address] [place] [address] 4 2:15 PM EDT Office Visit Hematology/Onco logy [facility] [address] [place] [phone] Sunil Bourgeois MD [address] [place] [address] 4 12:00 PM EDT Telemedicine Psychiatry, [facility] 200 [facility] [place] [address] Rj Mai MD [address] [place] [address] 4 1:00 PM EDT Office Visit Pharmacy, [place] [address] [place] [address] [facility] [address] [place] [address] 4 12:20 PM EDT Office Visit [facility] [address] [place] [address] Scott Weldon MD [address] [place] [address] 4 12:30 PM EDT Office Visit Ophthalmology, [facility] [address] [place], [place] [address] Rolan Self, DO [address] [place] [address] 4 11:15 AM EDT Hospital Encounter ENDO [facility], Endoscopy Room [facility] [address] [place] [phone] Aj Pruett, DO [address] [place] [address] 4 11:15 AM EDT - 4 11:45 AM EDT Surgery ENDO [facility], Endoscopy Room [facility] [address] [place] [phone] Aj Pruett, DO [address] [place] [address] ESOPHAGOGASTRODUODENOSCOPY (EGD), FLEXIBLE, TRANSORAL, DIAGNOSTIC 4 11:00 AM EST Telemedicine Pharmacy, [facility] [place] [address] [facility] [address] [place] [address] 4 1:40 PM EST Office Visit Nephrology, [facility] [address] [place] [address] Jonathan Mathew MD [address] [place] [address] 5 8:00 AM EST Office Visit Family Practice [facility] [address] [place] [address] Scott Weldon MD [address] [place] [address] Pending Results Name Type Priority Associated Diagnoses Date /Time LIPASE Lab Routine Elevated lipase LUQ pain 02/11/2024 11:19 AM EDT COMPREHENSIVE METABOLIC PANEL Lab Routine Elevated lipase LUQ pain 02/11/2024 11:19 AM EDT Scheduled Procedures Name Priority Associated [...] this encounter Medical Devices Implanted Type Area Tariff Publishing Agent Device Identifier Shelf Expiration Date Model / Serial / Lot Neurostimul Intellis Adaptiv - [id number] - [id number] Implanted:Qty: 1 on 08/22/2022 by Rafia Small MD at OR [facility] N/A: Spine Lumbar [employer] 06/21/2023 [id number] / [id number] / Description:battery Medtronic Lead Kit 60 Cm Implanted:Qty: 1 on 08/22/2022 by Rafia Small MD at OR [facility] N/A: Spine Lumbar 02/01/2026 [id number] / / [id number] Medtronic Lead Kit 60cm Implanted:Qty: 1 on 08/22/2022 by Rafia Small MD at OR [facility] N/A: Spine Lumbar 03/21/2026 [id number] / / [id number] Envelope Tyrx Med Antibacteril - [id number] Implanted:Qty: 1 on 08/22/2022 by Rafia Small MD at OR [facility] N/A: Spine Lumbar [employer] 03/10/2023 [id number] / / [id number] Hemostatic Clip Res 235cm - [id number] Implanted:Qty: 4 on 10/05/2023 by Aj Pruett DO at ENDOSCOPY [facility] : ENDOSCOPY 02/03/2026 [id number] / / Hemostatic Clip Res 235cm - [id number] Implanted:Qty: 1 on 10/05/2023 by Aj Pruett DO at ENDOSCOPY [facility] : ENDOSCOPY 02/02/2026 [id number] / / documented as of this encounter Visit Diagnoses Diagnosis Elevated lipase Other nonspecific abnormal serum enzyme levels LUQ [...] Power of Attor narda? No Care Teams Bell Hole Digger Relationship Specialty Start Date End Date Scott Weldon MD [address] [place] [address] PCP - General Family Medicine 08/03/18 documented as of this encounter
--- OUTSIDE RECORDS SUMMARY | 2024-05-13 05:18 | External Medical Summary | Summary of Care ---
Author Name Unknown Organization [facility] Address [address] [place] [address] Phone [phone] Care Team Providers Care Independent Living Specialist Name Role Phone Scott Weldon MD Primary Care Provider + Reason for Visit * Reason Onset Date Comments Medication Refill 02/12/2024 Encounter Details Date Type Department Care Team (Late st Contact Info) Description 02/12/2024 Refill Psychiatry, [address] [address] Rj Mai MD [address] [place] [address] Allergies Active Allergy Reactions Criticality [...] hemoglobin A1c goal of less than 8.0% ([facility]) Use as directed. 8 Active CPAP every [...] suspected opioid overdose. Seek immediate medical attention. [email or web address]?v=v26c [email or web address] 1 Each 3 3 Active Loratadine 10 [...] hemoglobin A1c goal of less than 8.0% ([facility]) Take 1 Tablet by mouth in the [...] hemoglobin A1c goal of less than 8.0% ([facility]) Take 1 Tablet by mouth daily with breakfast. 90 Tablet 1 4 Active Atenolol 25 MG Oral Tablet (Tenormin) Take 1 Tablet by mouth in the morning and 1 Tablet before bedtime. Active traZODone HCl 100 MG Oral Tablet (Desyrel) Take 1-2 Tablets by mouth at bedtime. 180 Tablet 1 4 Active traZODone HCl 100 MG Oral Tablet (Desyrel) Take 1-2 Tablets by mouth at bedtime. 180 Tablet 1 4 02/12/20 24 Discontinu ed(Refill) Ozempic (2 MG/DOSE) 8 MG/3ML Subcutaneous Solution [...] yrs 07/05/2015 Pneumococcal Conjugate Vacci ne, 20-valent ([id number]) 03/13/2023 Pneumococcal Polysaccharide PPV23 (Pneumovax) 02/19/2018,03/09/2007 Seasonal [...] No 10/07/2023 Does the household have a [facility] source of income? (Household - for [...] encounter Miscellaneous Notes * Telephone Encounter - Jamila Lovell CRNP - 02/12/2024 2:07 PM EDTSigned Prescriptions: Disp Refills traZODone HCl 100 MG Oral Tablet (Desyrel) 180 Ta*1 Sig: Take 1-2 Tablets by mouth at bedtime. Authorizing Provider: JAMILA LOVELL * Telephone Encounter - Kayla Baron LPN - 02/12/2024 1:10 PM EDT Pharmacy requesting refill on trazodone. Medication was last filled on 07/29/23 with 1 refills. Patient last seen on 01/27/24 with return appointment scheduled for 02/29/24. Patient had 0 cancelled appointments and 0 NO SHOW appointments. documented in this encounter Plan of Treatment Upcoming Encounters Date Type Department Care Team (Latest Contact Info) Description 4 11:00 AM EDT Laboratory Laboratory, [place] [address] [place] [phone] Gianni Mcconnell [address] [facility] [place] [address] 4 2:15 PM EDT Office Visit Hematology/Onco logy [facility] [place] [address] [place] [address] Sunil Bourgeois MD 200 [facility] [place], [place] [address] 4 12:00 PM EDT Telemedicine Psychiatry, [facility] 200 [facility] [place], [place] [address] Rj Mai MD [address] [place] [facility] [address] 4 1:00 PM EDT Office Visit Pharmacy, [place] [address] [place] [address] [facility] [address] [place] [address] 4 12:20 PM EDT Office Visit Family Practice [facility] [address] [facility] [place] [address] Scott Weldon MD [address] [place] [address] 4 12:30 PM EDT Office Visit Ophthalmology, [facility] [address] [place] [address] Rolan Self, DO [address] [facility] [place] [address] 4 11:15 AM EDT Hospital Encounter ENDO [facility], Endoscopy Room [facility] [address] [place] [phone] Aj Pruett DO [address] [place] [address] 4 11:15 AM EDT - 4 11:45 AM EDT Surgery ENDO [facility], Endoscopy Room [facility] [address] [place] [phone] Aj Pruett DO 132 [facility] [place] [address] ESOPHAGOGASTRODUODENOSCOPY (EGD), FLEXIBLE, TRANSORAL, DIAGNOSTIC 4 11:00 AM EST Telemedicine Pharmacy, [facility] 132 [facility] [place] [address] [facility] [address] [facility] [address] 4 1:40 PM EST Office Visit Nephrology, [facility] [address] [place] [address] Jonathan Mathew MD [address] [place] [address] 5 8:00 AM EST Office Visit Family Practice [facility] 132 [facility] [place] [address] Scott Weldon MD 132 [facility] [place] [address] Scheduled Procedures Name Priority Associated Diagnoses Date/Ti [...] Medical Devices Implanted Type Area Sales And Marketing Coordinator Device Identifier Shelf Expiration Date Model / Serial / Lot Neurostimul Intellis Adaptiv - [id number] - [id number] Implanted:Qty: 1 on 08/22/2022 by Rafia Small MD at OR [facility] N/A: Spine Lumbar [employer] 06/21/2023 [id number] / [id number] / Description:battery Medtronic Lead Kit 60 Cm Implanted:Qty: 1 on 08/22/2022 by Rafia Small MD at OR [facility] N/A: Spine Lumbar 02/01/2026 [id number] / / [id number] Medtronic Lead Kit 60cm Implanted:Qty: 1 on 08/22/2022 by Rafia Small MD at OR [facility] N/A: Spine Lumbar 03/21/2026 [id number] / / [id number] Envelope Tyrx Med Antibacteril - [id number] Implanted:Qty: 1 on 08/22/2022 by Rafia Small MD at OR [facility] N/A: Spine Lumbar [employer] 03/10/2023 [id number] / / [id number] Hemostatic Clip Res 235cm - [id number] Implanted:Qty: 4 on 10/05/2023 by Aj Pruett DO at ENDOSCOPY [facility] : [facility]COPY 02/03/2026 [id number] / / Hemostatic Clip Res 235cm - [id number] Implanted:Qty: 1 on 10/05/2023 by Aj Pruett DO at ENDOSCOPY [facility] : [facility]COPY 02/02/2026 [id number] / / documented as of this encounter [...] Power of Attor narda? No Care Teams Independent Living Specialist Relationship Specialty Start Date End Date Scott Weldon MD [address] [place] [address] PCP - General Family Medicine 08/03/18 documented as of this encounter
--- OUTSIDE RECORDS SUMMARY | 2024-05-13 05:19 | External Medical Summary | Summary of Care ---
Author Name Unknown Organization [facility] Address [address] [facility] [address] Phone [phone] Care Team Providers Care Highway Engineering Technician Name Role Phone Scott Montoya MD Primary Care Provider + Reason for Visit * Reason Onset Date Comments Medication Refill 02/01/2024 Encounter Details Date Type Department Care Team (Late st Contact Info) Description 02/01/2024 Refill Family Practice [facility] 132 [facility] [place] [address] Scott Montoya MD [address] [place] [address] Vertigo; Controlled substance agreement signed; Chronic bilateral low back pain with sciatica, sciatica laterality unspecified; Chronic pain syndrome Allergies Active Allergy Reactions Criticality Noted Date Comments Naproxen Sodium Bleeding High 11/29/2013 Pollen 12/03/2022 Seasonal Food (See Comments) Anaphylaxis High 04/20/2019 Hot peppers (oils) Kiwi Extract Anaphylaxis High 04/20/2019 documented as of this encounter (statuses as of 02/04/2024) Medications Medication Sig Dispensed Refills Start Date [...] Strip 5 7 Active Insulin Infusion Pump (MINIMStion 630G INSULIN PUMP) KITIndications:Type 2 diabetes mellitus [...] suspected opioid overdose. Seek immediate medical attention. [email or web address]?v=v26c [email or web address] 1 Each 3 3 Active Atenolol 100 [...] needed for nausea. 30 Tablet 4 Active Losartan Potassium 25 MG Oral [...] mouth at bedtime. 30 Tablet 4 Active Meclizine HCl 25 MG Oral Tablet (Antivert)Indicatio ns:Vertigo Take 1 Tablet by mouth 3 times a day as needed for Dizziness. 30 Tablet 1 4 02/01/20 24 Discontinu ed(Refill) Buprenorphine 5 MCG/HR Transdermal Patch Weekly (Butrans)Indication s:Controlled substance agreement signed,Chronic bilateral low back pain with sciatica, sciatica laterality unspecified,Chronic pain syndrome Place 1 Patch topically on the skin once a week. 4 Patch 4 02/01/20 24 Discontinu ed(Refill) documented as of this encounter (statuses as of 02/04/2024) Active Problems Problem Noted Date Diagnosed Date [...] as of this encounter (statuses as of 02/04/2024) Resolved Problems Problem Noted Date Diagnosed Date [...] Overview: Per Obesity Taxonomy Coronary atherosclerosis of [place] [...] as of this encounter (statuses as of 02/04/2024) Immunizations Name Administration Dates Next Due COVID-19 mRNA, LNP-s, No Pre serve, 2-Dose Series (Pfizer) 11/08/2020,10/11/2020 HEP A - Hepatitis A (Adult > 18 yrs) 04/11/2011, 09/20/2010 Hepatitis B, 20+ yrs 07/05/2015 Pneumococcal Conjugate Vacci ne, 20-valent (Mzhcxst81) 03/13/2023 Pneumococcal Polysaccharide PPV23 (Pneumovax) 02/19/2018,03/09/2007 Seasonal [...] Telephone Encounter - Scott Montoya MD - 02/04/2024 10:47 PM EDT Signed Prescriptions: Disp Refills Meclizine HCl 25 MG Oral Tablet (Antivert) 30 Tab*1 Sig: Take 1 Tablet by mouth 3 times a day as needed for Dizziness. Authorizing Provider: SCOTT MONTOYA Ordering User: JOSE CATES Buprenorphine 5 MCG/HR Transdermal Patch W*4 Patch0 Sig: Place 1 Patch topically on the skin once a week. Authorizing Provider: NISHA MONTOYA * Telephone Encounter - Jose Cates [facility] - 02/03/2024 9:31 AM EDTPending Prescriptions: Disp Refills Buprenorphine 5 MCG/HR Transdermal Patch W*4 Patch0 Sig: Place 1 Patch topically on the skin once a week. Signed Prescriptions: Disp Refills Meclizine HCl 25 MG Oral Tablet (Antivert) 30 Tab*1 Sig: Take 1 Tablet by mouth 3 times a day as needed for Dizziness. Authorizing Provider: SCOTT MONTOYAOrdering User: JOSE CATES * Telephone Encounter - Jose Cates RPh - 02/03/2024 9:29 AM EDT I have reviewed the patients controlled substance dispensing history in the Prescription Drug Monitoring Program in compliance with the [facility] regulations before prescribing a controlled substance. PDMP checked on 02/03/2024. Pending Prescriptions: Disp Refills Meclizine HCl 25 MG Oral Tablet (Antivert)30 Tab*1 Sig: Take 1 Tablet by mouth 3 times a day as needed for Dizziness. Buprenorphine 5 MCG/HR Transdermal Patch *4 Patch0 Sig: Place 1 Patch topically on the skin once a week. Last Visit: 01/28/2024 (in office), 09/08/2022 (telemedicine) Next Visit: 03/16/2024 Date medication was last filled: 01/11/24 Date medication is due for refill: 02/07/24 Pharmacy: [id number] Is this request for a controlled [...] in Results Review. Please approve if appropriate. ThanksJose PharmD Clinical Pharmacist [facility] ([facility]) [phone] 02/03/2024, 9:29 AM documented in this encounter Plan of Treatment Upcoming Encounters Date Type Department Care Team (Latest Contact Info) Description 4 10:30 AM EDT Office Visit Pharmacy, [address] [address] [facility] [address] [place] [address] 4 10:40 AM EDT Office Visit [facility] [address] [place] [address] Scott Montoya MD [address] [place] [address] 4 2:15 PM EDT Office Visit Hematology/Onco logy [place] 200 [facility] [place] [phone] Sunil Bourgeois MD 200 [facility] [place] [address] 4 12:00 PM EDT Telemedicine Psychiatry, [facility] 200 [facility] [place] [address] Rj Mai MD [address] [place] [address] 4 12:20 PM EDT Office Visit Family Practice [facility] [address] [place] [address] Scott Montoya MD [address] [place] [address] 4 12:30 PM EDT Office Visit Ophthalmology, [facility] [address] [place] [address] Rolan Self, DO [address] [place] [address] 4 11:15 AM EDT Hospital Encounter ENDO OSS, Endoscopy Room [facility] [address] [place] [phone] Aj Pruett, DO [address] [place] [address] 4 11:15 AM EDT - 4 11:45 AM EDT Surgery ENDO [facility], Endoscopy Room [facility] [address] [place] [phone] Aj Pruett, DO [address] [place] [address] ESOPHAGOGASTRODUODENOSCOPY (EGD), FLEXIBLE, TRANSORAL, DIAGNOSTIC 4 11:00 AM EST Telemedicine Pharmacy, [facility] [address] [place] [address] [facility] [address] [place] [address] 4 1:40 PM EST Office Visit Nephrology, [address] [place] [address] Jonathan Mathew MD [address] [place] [address] 8:00 AM EST Office Visit [facility] [address] [place] [address] Scott Montoya MD [address] [place] [address] Scheduled Procedures Name Priority Associated Diagnoses Date/Ti [...] 09/07/2026 09/08/2023, 10/2014, 04/12/2015, Additional history exists DTap/Tdap Vaccines (3 - [...] this encounter Medical Devices Implanted Type Area District Fire Management Officer Device Identifier Shelf Expiration Date Model / Serial / Lot Neurostimul Intellis Adaptiv - [id number] - [id number] Implanted:Qty: 1 on 08/22/2022 by Rafia Small MD at OR [facility] N/A: Spine Lumbar [employer] 06/21/2023 [id number] / [id number] / Description:battery Medtronic Lead Kit 60 Cm Implanted:Qty: 1 on 08/22/2022 by Rafia Small MD at OR [facility] N/A: Spine Lumbar 02/01/2026 [id number] / / [id number] Medtronic Lead Kit 60cm Implanted:Qty: 1 on 08/22/2022 by Rafia Small MD at OR [facility] N/A: Spine Lumbar 03/21/2026 [id number] / / [id number] Envelope Tyrx Med Antibacteril - [id number] Implanted:Qty: 1 on 08/22/2022 by Rafia Small MD at OR [facility] N/A: Spine Lumbar [employer] 03/10/2023 [id number] / / [id number] Hemostatic Clip Res 235cm - [id number] Implanted:Qty: 4 on 10/05/2023 by Aj Pruett DO at END[facility]COPY [facility] : [facility] 02/03/2026 [id number] / / Hemostatic Clip Res 235cm - [id number] Implanted:Qty: 1 on 10/05/2023 by Aj Pruett DO at ENDOSCOPY [facility] : ENDOSCOPY 02/02/2026 [id number] / / documented as of this encounter Visit Diagnoses Diagnosis Vertigo Dizziness and giddiness Controlled substance agreement signed Encounter for long-term [...] Power of Attor narda? No Care Teams Highway Engineering Technician Relationship Specialty Start Date End Date Scott Montoya MD [address] [place] [address] PCP - General Family Medicine 08/03/18 documented as of this encounter
--- OUTSIDE RECORDS SUMMARY | 2024-05-13 05:19 | External Medical Summary | Summary of Care ---
Author Name Unknown Organization [facility] Address 100 [facility] [place] [address] Phone [phone] Care Team Providers Care Installation Technician Name Role Phone Scott Weldon MD Primary Care Provider + Encounter Details Date Type Department Care Team (Late st Contact Info) Description 02/02/2024 Orders Only PATIENT PORTAL DO NOT DELETE THIS DEPT USED BY [place] FRIEND [id number] Allergies Active Allergy Reactions Criticality Noted Date Comments Naproxen Sodium Bleeding High 11/29/2013 Pollen 12/03/2022 Seasonal Food (See Comments) Anaphylaxis High 04/20/2019 Hot peppers (oils) Kiwi Extract Anaphylaxis High 04/20/2019 documented as of this encounter (statuses as of 02/02/2024) Medications Medication Sig Dispensed Refills Start Date [...] Strip 5 02/17/2017 Active Insulin Infusion Pump (MINIMGrab Media 630G INSULIN PUMP) KITIndications:Type 2 diabetes mellitus with hemoglobin A1c goal of less than 8.0% ([facility]) Use as directed. 07/30/2017 Active CPAP [...] suspected opioid overdose. Seek immediate medical attention. [email or web address]/watch?v=v26cDa [email or web address] 1 Each 3 11/27/2022 Active [...] [facility]),DM type 2, not at goal (HCC) INJECT [...] 8.0% ([facility]) Take 1 Tablet by mouth daily. Dose [...] as of this encounter (statuses as of 02/02/2024) Active Problems Problem Noted Date Diagnosed Date [...] as of this encounter (statuses as of 02/02/2024) Resolved Problems Problem Noted Date Diagnosed Date [...] Overview: Per Obesity Taxonomy Coronary atherosclerosis of [place] coronary artery 09/15/2008 10/03/2008 Malaise and [...] as of this encounter (statuses as of 02/02/2024) Immunizations Name Administration Dates Next Due COVID-19 mRNA, LNP-s, No Pre serve, 2-Dose Series ([employer]) 11/08/2020,10/11/2020 HEP A - Hepatitis A (Adult > 18 yrs) 04/11/2011, 09/20/2010 Hepatitis B, 20+ yrs 07/05/2015 Pneumococcal Conjugate Vacci ne, 20-valent ([id number]) 03/13/2023 Pneumococcal Polysaccharide PPV23 (Pneumovax) 02/19/2018,03/09/2007 Seasonal [...] 7:03 PM EST Sexual Orientation Straight 10/26/2019 3 :40 PM EDT Job Start Date Occupation Industry [...] Description 4 10:30 AM EDT [facility] [place] [address] [facility] [address] [place] [address] 4 2:15 PM EDT Office Visit Hematology/Onco logy [facility]oney [place] [address] [place] [address] Sunil Bourgeois MD [address] [place] [address] 4 12:00 PM EDT Telemedicine Psychiatry, Roney Nora [address] [place] [address] Rj Mai MD [address] [place] [address] 4 12:20 PM EDT Office Visit Family Practice [facility] [address] [place] [address] Scott Weldon MD [address] [place] [address] 4 12:30 PM EDT Office Visit Ophthalmology, [facility] [address] [place] [address] Rolan Self, DO [facility] [address] 4 11:15 AM EDT Hospital Encounter ENDO OSSC, Endoscopy Room [facility] [address] [place] [phone] Aj Pruett DO [address] [place] [address] 4 11:15 AM EDT - 4 11:45 AM EDT Surgery ENDO OSSC, Endoscopy Room [facility] [address] [place] [phone] Aj Pruett DO [address] [facility] [place] [address] ESOPHAGOGASTRODUODENOSCOPY (EGD), FLEXIBLE, TRANSORAL, DIAGNOSTIC 4 11:00 AM EST Telemedicine Pharmacy, [facility] 132 [facility] [address] [facility] [address] [place] [address] 4 1:40 PM EST Office Visit Nephrology, [facility] [address] [place] [address] Jonathan Mathew MD [address] [place] [address] 5 8:00 AM EST Office Visit Family Practice [facility] 132 [facility] [address] Scott Weldon MD 132 [facility] [place] [address] Scheduled Procedures Name Priority Associated Diagnoses Date/Ti [...] this encounter Medical Devices Implanted Type Area Malt House Supervisor Device Identifier Shelf Expiration Date Model / Serial / Lot Neurostimul Intellis Adaptiv - [id number] - [id number] Implanted:Qty: 1 on 08/22/2022 by Rafia Small MD at [facility] N/A: Spine Lumbar [employer] 06/21/2023 [id number] / [id number] / Description:battery Medtronic Lead Kit 60 Cm Implanted:Qty: 1 on 08/22/2022 by Rafia Small MD at OR [facility] N/A: Spine Lumbar 02/01/2026 [id number] / / [id number] Medtronic Lead Kit 60cm Implanted:Qty: 1 on 08/22/2022 by Rafia Small MD at OR [facility] N/A: Spine Lumbar 03/21/2026 [id number] / / [id number] Envelope Tyrx Med Antibacteril - [id number] Implanted:Qty: 1 on 08/22/2022 by Rafia Small MD at OR [facility] N/A: Spine Lumbar [employer] 03/10/2023 [id number] / / [id number] Hemostatic Clip Res 235cm - [id number] Implanted:Qty: 4 on 10/05/2023 by Aj Pruett DO at ENDOSCOPY [facility] : ENDOSCOPY 02/03/2026 [id number] / / Hemostatic Clip Res 235cm - [id number] Implanted:Qty: 1 on 10/05/2023 by Aj Pruett DO at ENDOSCOPY [facility] : ENDOSCOPY 02/02/2026 [id number] / / documented as of this encounter [...] Power of Attor narda? No Care Teams Installation Technician Relationship Specialty Start Date End Date Scott Weldon MD 132 [place] [address] PCP - General Family Medicine 08/03/18 documented as of this encounter
--- OUTSIDE RECORDS SUMMARY | 2024-05-13 05:19 | External Medical Summary | Summary of Care ---
Author Name Unknown Organization [facility] Address 100 [place] [address] Phone [phone] Care Team Providers Care Software Licensing Analyst Name Role Phone Scott Weldon MD Primary Care Provider + Reason for Visit * Reason Onset Date Comments Patient Assistance Program 02/11/2024 Sangeeta mckeon Encounter Details Date Type Department Care Team (Late st Contact Info) Description 02/11/2024 Telephone Pharmacy, [address] [address] [facility] [address] [place] [address] Patient Assistance Program (Christiano) Allergies Active Allergy [...] Strip 5 02/17/2017 Active Insulin Infusion Pump (MINIMWAKU WAKU ? 630G INSULIN PUMP) KITIndications:Type 2 diabetes mellitus [...] suspected opioid overdose. Seek immediate medical attention. [email or web address]://www.[email or web address]/watch?v=v26cDa [email or web address] 1 Each 3 11/27/2022 Active [...] [facility]) Take 1 Tablet by mouth daily. Dose [...] yrs 07/05/2015 Pneumococcal Conjugate Vacci ne, 20-valent ([id number]) 03/13/2023 Pneumococcal Polysaccharide PPV23 (Pneumovax) 02/19/2018,03/09/2007 Seasonal [...] No 10/07/2023 Does the household have a [facility] cent[facility] source of income? (Household - for ages [...] Notes * Telephone Encounter - Danielle Anderson [facility] - 02/11/2024 10:44 AM EDT Patient is unable to afford their prescription and would like assistance in getting this medication. Please see the following for further information regarding this request: Medication: Jardiance 10 mg Clinic location: [facility] Reason pt cannot pick-up: cost- in donut hole Initial therapy?: no Has pt been without med?: she has 3 pills left Patient's contact #: [phone]; or MyG Pt would like to explore their options for obtaining this medication. Please advise pt at the phonenumber listed above. Thank you. Thanks, Danielle Anderson, PharmD, BCACP Clinical Pharmacist Medication Therapy Disease Management 02/11/2024, 10:45 AM documented in this encounter Plan of Treatment Upcoming Encounters Date Type Department Care Team (Latest Contact Info) Description 4 10:40 AM EDT Office Visit Family [facility] [address] [place] [address] Scott Weldon MD 132 [place] [address] 4 2:15 PM EDT Office Visit Hematology/Onco log[place] [address] [place] [phone] Sunil Bourgeois MD [address] [place] [address] 4 12:00 PM EDT Telemedicine Psychiatry, Roney Melendez [address] [place] [address] Rj Mai MD [address] [place] [facility] [place] [address] 4 12:20 PM EDT Office Visit Family Practice [facility] [address] [place] [address] Scott Weldon MD [address] [place] [address] 4 12:30 PM EDT Office Visit Ophthalmology, [facility] [address] [place] [address] Rolan Self, DO [address] [place] [address] 4 11:15 AM EDT Hospital Encounter ENDO OSS, Endoscopy Room [facility] [address] [place] [phone] Aj Pruett, DO [address] [place] [address] 4 11:15 AM EDT - 4 11:45 AM EDT Surgery ENDO [facility], Endoscopy Room [facility] [address] [place] [phone] Aj Pruett, DO [address] [place] [address] ESOPHAGOGASTRODUODENOSCOPY (EGD), FLEXIBLE, TRANSORAL, DIAGNOSTIC 4 11:00 AM EST Telemedicine Pharmacy, [facility] [address] [place] [address] [facility] [address] [place] [address] 4 1:40 PM EST Office Visit Nephrology, [facility] [place] [address] [place], [place] [address] Jonathan Mathew MD [address] [place] [address] 8:00 AM EST Office Visit Family [facility] [address] [place] [address] Scott Weldon MD [address] [place] [address] Scheduled Procedures Name Priority Associated Diagnoses Date/Ti [...] this encounter Medical Devices Implanted Type Area Customer Service Advocate Device Identifier Shelf Expiration Date Model / Serial / Lot Neurostimul Intellis Adaptiv - [id number] - [id number] Implanted:Qty: 1 on 08/22/2022 by Rafia Small MD at OR [facility] N/A: Spine Lumbar [employer]TR[employer]IC [employer] 06/21/2023 [id number] / [id number] / Description:battery Medtronic Lead Kit 60 Cm Implanted:Qty: 1 on 08/22/2022 by Rafia Small MD at OR [facility] N/A: Spine Lumbar 02/01/2026 [id number] / / [id number] Medtronic Lead Kit 60cm Implanted:Qty: 1 on 08/22/2022 by Rafia Small MD at OR [facility] N/A: Spine Lumbar 03/21/2026 [id number] / / [id number] Envelope Tyrx Med Antibacteril - [id number] Implanted:Qty: 1 on 08/22/2022 by Rafia Small MD at OR [facility] N/A: Spine Lumbar [employer] 03/10/2023 [id number] / / [id number] Hemostatic Clip Res 235cm - [id number] Implanted:Qty: 4 on 10/05/2023 by Aj Pruett DO at ENDOSCOPY [facility] : ENDOSCOPY 02/03/2026 [id number] / / Hemostatic Clip Res 235cm - [id number] Implanted:Qty: 1 on 10/05/2023 by Aj Pruett DO at ENDOSCOPY [facility] : ENDOSCOPY 02/02/2026 [id number] / / documented as of this encounter [...] Power of Attor narda? No Care Teams Software Licensing Analyst Relationship Specialty Start Date End Date Scott Weldon MD [address] [place] [address] PCP - General Family Medicine 08/03/18 documented as of this encounter
--- OUTSIDE RECORDS SUMMARY | 2024-05-13 05:19 | External Medical Summary | Summary of Care ---
Author Name Unknown Organization [facility] Address 100 [facility] [place] [address] Phone [phone] Care Team Providers Care Auto Refinisher Name Role Phone Scott Weldon MD Primary Care Provider + Reason for Visit * Reason Onset Date Comments Test Results 01/29/2024 Test Results Encounter Details Date Type Department Care Team (Late st Contact Info) Description 01/29/2024 Telephone Family Practice [facility] [address] [place] [address] Scott Weldon MD [address] [place] [address] Test Results (Test Results) Allergies Active Allergy Reactions Criticality Noted Date Comments Naproxen Sodium Bleeding High 11/29/2013 Pollen 12/03/2022 Seasonal Food (See Comments) Anaphylaxis High 04/20/2019 Hot peppers (oils) Kiwi Extract Anaphylaxis High 04/20/2019 documented as of this encounter (statuses as of 02/03/2024) Medications Medication Sig Dispensed Refills Start Date [...] Strip 5 7 Active Insulin Infusion Pump (MINIMPlaynomics 630G INSULIN PUMP) KITIndications:Type 2 diabetes mellitus with hemoglobin A1c goal of less than 8.0% ([facility]) Use as directed. 8 Active [...] suspected opioid overdose. Seek immediate medical attention. [email or web address]://[email or web address] [email or web address]/watch?v=v26c [email or web address] 1 Each 3 3 Active Atenolol 100 [...] hemoglobin A1c goal of less than 8.0% ([facility]) Take 1 Tablet by mouth daily. Dose [...] Tablet 1 4 02/01/20 24 Discontinu ed(Refill) Eszopiclone 2 MG Oral Tablet (Lunesta) Take 1 Tablet by mouth at bedtime. 30 Tablet 1 4 02/01/20 24 Discontinu ed(Refill) documented as of this encounter (statuses as of 02/03/2024) Active Problems Problem Noted Date Diagnosed Date [...] as of this encounter (statuses as of 02/03/2024) Resolved Problems Problem Noted Date Diagnosed Date [...] as of this encounter (statuses as of 02/03/2024) Immunizations Name Administration Dates Next Due COVID-19 mRNA, LNP-s, No Pre serve, 2-Dose Series ([employer]) 11/08/2020,10/11/2020 HEP A - Hepatitis A (Adult > 18 yrs) 04/11/2011, 09/20/2010 Hepatitis B, 20+ yrs 07/05/2015 Pneumococcal Conjugate Vacci ne, 20-valent ([id number]) 03/13/2023 Pneumococcal Polysaccharide PPV23 (Pneumovax) 02/19/2018,03/09/2007 Seasonal [...] No 10/07/2023 Does the household have a [facility] source of income? (Household - for [...] of Test : 01/28/2024 Location of Test: [facility] Ordering Provider: Elisa Caldera Patient has been [...] 4 10:30 AM EDT Office Visit Pharmacy, [place] [address] [place] [address] [facility] [address] [place] [address] 4 2:15 PM EDT Office Visit Hematology/Onco logy [facility] [address] [place] [address] Sunil Bourgeois MD [address] [place] [address] 4 12:00 PM EDT Telemedicine Psychiatry, [facility] [address] [place] [address] Rj Mai MD [address] [place] [address] 4 12:20 PM EDT Office Visit Family Practice [facility] 132 [facility] [address] [facility] [place] [address] Scott Weldon MD [address] [place] [address] 4 12:30 PM EDT Office Visit Ophthalmology, [facility] [address] [place] [address] Rolan Self, DO [address] [place] [address] 4 11:15 AM EDT Hospital Encounter ENDO OSSC, Endoscopy Room [facility] [address] [place], [place] [phone] Aj Pruett, DO [address] [place] [address] 4 11:15 AM EDT - 4 11:45 AM EDT Surgery ENDO [facility], Endoscopy Room [facility] [address] [place], [place] [phone] Aj Pruett, DO [address] [place] [address] ESOPHAGOGASTRODUODENOSCOPY (EGD), FLEXIBLE, TRANSORAL, DIAGNOSTIC 4 11:00 AM EST Telemedicine Pharmacy, [facility] [address] [place] [address] [facility] [address] [place] [address] 4 1:40 PM EST Office Visit Nephrology, [facility] [address] [facility] [place] [address] Jonathan Mathew MD 200 [facility] [place] [address] 5 8:00 AM EST Office Visit Family Practice [facility] [address] [place] [address] Scott Weldon MD [address] [place] [address] Scheduled Orders Name Type Priority Associated Diagnoses [...] 09/08/2023, 110 10/2014, 04/12/2015, Additional history exists DTap/Tdap Vaccines [...] Medical Devices Implanted Type Area Manager Of Supply Chain Device Identifier Shelf Expiration Date Model / Serial / Lot Neurostimul Intellis Adaptiv - [id number] - [id number] Implanted:Qty: 1 on 08/22/2022 by Rafia Small MD at OR [facility] N/A: Spine Lumbar [employer] 06/21/2023 [id number] / [id number] / Description:battery Medtronic Lead Kit 60 Cm Implanted:Qty: 1 on 08/22/2022 by Rafia Small MD at OR [facility] N/A: Spine Lumbar 02/01/2026 [id number] / / [id number] Medtronic Lead Kit 60cm Implanted:Qty: 1 on 08/22/2022 by Rafia Small MD at OR [facility] N/A: Spine Lumbar 03/21/2026 [id number] / / [id number] Envelope Tyrx Med Antibacteril - [id number] Implanted:Qty: 1 on 08/22/2022 by Rafia Small MD at OR [facility] N/A: Spine Lumbar [employer] 03/10/2023 [id number] / / [id number] Hemostatic Clip Res 235cm - [id number] Implanted:Qty: 4 on 10/05/2023 by Aj Pruett, DO at ENDOSCOPY [facility] : ENDOSCOPY 02/03/2026 [id number] / / Hemostatic Clip Res 235cm - [id number] Implanted:Qty: 1 on 10/05/2023 by Aj Pruett, DO at ENDOSCOPY [facility] : ENDOSCOPY 02/02/2026 [id number] / / documented as of this encounter [...] Power of Attor narda? No Care Teams Auto Refinisher Relationship Specialty Start Date End Date Scott Weldon MD [address] [place] [address] PCP - General Family Medicine 08/03/18 documented as of this encounter
--- OUTSIDE RECORDS SUMMARY | 2024-05-13 05:19 | External Medical Summary ---
Author Name Unknown Address Unknown Organization K01:[facility] - [address] [place] [address] Laboratory Report Ordering Provider Test Date Status LINUS GUILLERMO 02/11/2024 11:19:28 Final Observation Date Value Abnormality Reference (Units ) Status BUN 02/11/2024 11:19:28 20 6-20 (mg/dL) Final Creatinine 02/11/2024 11:19:28 1.6 Above high normal 0.5-1.0 (mg/dL) Final Glomerular filtration rate/1.73 sq M.predicted [Volume Rate/Area] in Serum, Plasma or Blood by Creatinine-based formula (CKD-EPI) 02/11/2024 11:19:28 38 Below low normal >=60 (mL/min) Final eGFR is calculated based on the CKD-EPI 2020 equation. Sodium 02/11/2024 11:19:28 141 135-146 (m mol/L) Final Potassium 02/11/2024 11:19:28 4.0 3.5-5.1 (m mol/L) Final Cl 02/11/2024 11:19:28 99 98-107 (mm ol/L) Final CO2 02/11/2024 11:19:28 30 22-32 (mmo l/L) Final Anion gap 02/11/2024 11:19:28 12 7-15 (mmol /L) Final Glucose 02/11/2024 11:19:28 101 70-120 (mg /dL) Final Albumin 02/11/2024 11:19:28 4.2 3.8-5.0 (g /dL) Final AST (Aspartate aminotransferase) 02/11/2024 11:19:28 47 Above high normal 10-35 (U/L) Final Alk Phos 02/11/2024 11:19:28 234 Above high normal 35 -130 (U/L) Final Bilirubin, Total 02/11/2024 11:19:28 0.5 <=1 .2 (mg/dL) Final Calcium 02/11/2024 11:19:28 9.1 8.4-10.2 ( mg/dL) Final Protein 02/11/2024 11:19:28 7.2 6.0-8.3 (g /dL) Final ALT (Alanine aminotransferase) 02/11/2024 11:19:28 22 10-35 (U/L) Jaswinder burns Performing Location [facility] - [facility] [place][note 2] [address]. [facility] [place] [address]
--- OUTSIDE RECORDS SUMMARY | 2024-05-13 05:19 | External Medical Summary ---
Author Name Unknown Address Unknown Organization K01:[facility] - [address] [place] [address] Laboratory Report Ordering Provider Test Date Status LINUS GUILLERMO 02/11/2024 11:19:28 Final Observation Date Value Abnormality Reference (Units ) Status Lipase 02/11/2024 11:19:28 104 Above high normal 13 -60 (U/L) Final Performing Location [facility] - [address] [place] [address]
[2024-05-13 06:32] LABS: Albumin Globulin Ratio 1.2 (0.9-2); Albumin Level 3.8 gm/dl (3.4-5.0); BUN Creatinine Ratio 15.4 (10-20); Bilirubin,Total 0.9 mg/dl (0.2-1.0); Calcium 8.7 mg/dl (8.6-10.3); Creatinine Clr Calc Pharmacy 58.2 ml/min; Globulin 3.1 gm/dl (2.5-4.0); Potassium 4.8 mmol/L (3.5-5.1); Total Protein 6.9 gm/dl (6.0-8.3)
[2024-05-13 07:47] VITALS: PULSE 72; TEMP 97.9
[2024-05-13] MEDS: METOCLOPRAMIDE HCL 5 MG TABLET PO PRN (08:39)
[2024-05-13] MEDS: LANTUS PER UNIT CHARGE SC SCH (09:04)
--- NOTE | 2024-05-13 09:05 | Discharge Summary ---
Discharge Summary Date of Service May 13, 2024 Principal Dx & Hospital Course #1 = Principal Diagnosis (1) Near syncope: 53-year-old lady with PMH of seizure disorder, HTN, HLD, CVA, chronic left hemiparesis, NAFLD cirrhosis, liver malignancy, T2DM on insulin pump, CKD [baseline creatinine of 1.4-1.5], chronic pain on Butrans patch, chronic back pain status post surgery, mood disorder, chronic anemia [baseline hemoglobin of 11], chronic thrombocytopenia, DONNA on CPAP was sent from the nephrology office for low blood pressure [SBP in 80s]. Patient reports feeling not well for about a week, reports baseline appetite, reports feeling sluggish, reports having loose stools about 4 times a day since last 3 days ago [employer]. Of note, patient was admitted in her last admission for hypotension and ARF, spironolactone and losartan were discontinued at that time. Patient doing better and medications resumed as tolerated. suspect majority of symptoms related to dehydration due to GI symptoms and continued water pill. Discussed holding water pill for 2-3 days until po intake at baseline. #Diarrhea Possible viral gastroenteritis Hypotension resolved Patient reports not feeling well and feeling sluggish for about a week [employer], is having multiple loose stools for 3 days [employer]. Patient denies fever, cough. Respiratory pathogen panel at admission negative. Patient noted to be hypotensive at nephrology office. Admitting CTAP with cirrhotic liver and moderate splenomegaly. 2 high density structures noted within the stomach could be her clips from GI procedure last September. Rule out other infection/causes for hypotension: CT chest negative for infection, UA negative, urine drug screen fentanyl/mdma --received fent in ED, mdma false positive no further diarrhea Orthostatic vitals negative resume atenolol as BP improving and intake improving Acute kidney injury over CKD stage III resolving: Likely prerenal secondary to hypotension. Admitting CTAP with no evidence of obstruction. Baseline creatinine of 1.4-1.5. Admitting creatinine of 2.57. Continue to encourgae po, avoid nephrotoxins, creatinine downtrending, labs in AM. Metabolic Encephalopathy: secondary to illness, multiple neuropsychotropic medications contributory. CT head with no acute finding. Appears resolved at bedside exam. resume home medications Other chronic medical conditions: Continue with/resume home meds as and when able. seizure disorder, stable off maintenance AED Rx hyperlipidemia, on statin Rx hx of CVA, chronic left hemiparesis as per records NAFLD cirrhosis, liver malignancy, compensated liver disease, patient follows with [facility] [place] [facility] systems specialist DM2 on insulin pump, well-controlled as of recent hemoglobin A1c of 6.3 last November 2023, hypoglycemic episode documented at the ER. Hold insulin pump for now given hypoglycemia, gycemic pharmacy consult. chronic pain on Butrans patch chronic back pain status post surgery Anxiety/mood disorder, stable as per patient chronic anemia, hemoglobin at baseline chronic thrombocytopenia secondary liver disease Notes For Next Care Provider Medication Changes From Visit Hold lasix until home intake stable Admission HPI Per Admitting Provider History obtained from patient and records. Medical history significant for seizure disorder, hypertension, hyperlipidemia, past hx of CVA, chronic left hemiparesis as per records, NAFLD cirrhosis, liver malignancy, DM2 on insulin pump,CRI (baseline creatinine 1.4-1.5), chronic pain on Butrans patch, chronic back pain status post surgery, mood disorder, chronic anemia (baseline hemoglobin of 11), chronic thrombocytopenia, DONNA on CPAP. Last confinement January 2024 for hypotension and ARF. BP meds adjusted on discharge. Spironolactone and losartan discontinued. Patient not feeling well for about a week. Dizziness described as lightheadedness without unusual headache symptoms. Fair appetite. Denies chest pain, SOB, abdominal pain. Chronic back pain. Not sure about sick contacts. Feeling sluggish. SBP 80s at during [facility] nephrology office visit yesterday. Patient brought to ER via EMS. Transient hypoglycemia at the ER 70s as per RN. Medical History as above Surgical History : Hysteroscopy, vascular procedure, BTL, back surgery/spinal stimulator placement Family History : COPD, diabetes, liver disease, heart disease Personal/Social history : Non-smoker, no EtOH intake, disabled Admission Exam Per Admitting Provider GENERAL: Lethargic, morbidly obese, no respiratory distress SKIN: Pallor, warm HEENT: Bespectacled, pale palpebral conjunctivae, no ptosis, dry buccal mucosa, nasal cannula in place NECK : Supple, short neck, no tenderness CHEST : Decreased breath sounds, no tenderness HEART : RRR, no obvious murmurs ABDOMEN: Chronic distention,no tenderness EXTREMITIES : Bilateral LE swelling, no LE tenderness, no other conspicuous deformities noted NEUROLOGIC : Lethargic, no facial asymmetry, gait and stance not assessed Discharge Exam Constitutional WD/WN, vitals as above Respiratory normal respiratory effort, lungs clear to auscultation Cardiovascular RRR, no murmur, no edema Gastrointestinal (Abdomen) normal bowel sounds, soft, nontender, no hepatosplenomegaly Updated Medication List Medication Instructions Recorded Confirmed Type albuterol sulfate 90 mcg/actuation 2 puff inhalation Q6 PRN Shortness 08/11/23 05/10/24 History aerosol inhaler Of Breath Or Wheezing atorvastatin 40 mg tablet 40 mg PO DAILYBL 08/11/23 05/10/24 History baclofen 10 mg tablet 10 mg PO TID 08/11/23 05/10/24 History buprenorphine 5 mcg/hour weekly 1 patch topical WK 08/11/23 05/10/24 History transdermal patch dicyclomine 20 mg tablet 20 mg PO HS 08/11/23 05/10/24 History escitalopram oxalate 20 mg tablet 20 mg PO DAILY 08/11/23 05/10/24 History eszopiclone 2 mg tablet 2 mg PO HS 08/11/23 05/10/24 History hydroxyzine HCl 25 mg tablet 25 mg PO TID PRN Anxiety 08/11/23 05/10/24 History insulin regular human 100 unit/mL 0 unit continuous subcutaneous 08/11/23 05/10/24 History injection solution (Novolin R infusion DIRECTED Regular U-100 Insulin) loratadine 10 mg tablet 10 mg PO QAM 08/11/23 05/10/24 History magnesium oxide 400 mg PO DAILY 08/11/23 05/10/24 History meclizine 25 mg tablet 25 mg PO TID PRN .dizzy 08/11/23 05/10/24 History metformin 1,000 mg tablet 1,000 mg PO DAILY 08/11/23 05/10/24 History metoclopramide HCl 5 mg tablet 5 mg PO AC PRN Nausea 08/11/23 05/10/24 History naloxone 4 mg/actuation nasal spray 4 mg intranasal DIRECTED PRN 08/11/23 05/10/24 History opiod od ondansetron 8 mg disintegrating 8 mg translingual Q8 PRN Nausea 08/11/23 05/10/24 History tablet pregabalin 100 mg capsule 100 mg PO TID 08/11/23 05/10/24 History trazodone 100 mg tablet 100 - 200 mg PO HS 08/11/23 05/10/24 History pantoprazole 40 mg tablet,delayed 40 mg PO DAILY 02/02/24 05/10/24 History release atenolol 25 mg tablet 25 mg PO BID #60 tabs 02/04/24 05/10/24 Rx furosemide 40 mg tablet 40 mg PO Q OTHER DAY #0 tabs 02/04/24 05/10/24 Rx potassium chloride 10 mEq 20 meq (2 x 10 mEq) PO DAILY #0 02/04/24 05/10/24 Rx tablet,extended release tabs Hospital Stay Data Consultations 05/10/24 22:40 ED Decision to Admit Stat Diagnostic Imagining Performed 05/10/24 18:26 CT abd pelvis wo con Stat CT cervical spine wo con Stat CT chest diagnostic wo con Stat CT head/brain wo con Stat Pending Results Patient Have Any Pending Studies at Discharge: No Discharge Instructions Given to Patient (Per Discharging Provider) You were admitted for low blood pressure and confusion. You were noted to have kidney injury which was likely due to low blood pressure and dehydration from the diarrhea you reported. You did not have further episodes of diarrhea while admitted. All your home medicines were resumed with the exception of furosemide and your kidney function returned to baseline. Please resume your lasix when you feel your appetite has resumed back to normal or when your PCP tells you to resume. Total Time Total Time Spent Total Time Spent (In Minutes): 45
[2024-05-13 09:51] VITALS: BP 123/82
[2024-05-13] MEDS: HEPARIN 100 UNIT/ML 5ML FLUSH FLUSH PRN (10:46)
--- NOTE | 2024-05-13 11:36 | Electrocardiogram Report ---
Test Reason : Blood Pressure : */* mmHG Vent. Rate : 70 BPM Atrial Rate : 70 BPM P-R Int : 142 ms QRS Dur : 82 ms QT Int : 394 ms P-R-T Axes : 51 -11 92 degrees QTcB Int : 425 ms Normal sinus rhythm Nonspecific T wave abnormality Abnormal ECG When compared with ECG of 10-May-2024 18:19, Sinus rhythm has replaced Junctional rhythm ST no longer depressed in Inferior leads Confirmed by Jh Nicholas [id number]) on 05/13/2024 11:35:38 AM Referred By: REFERRED SELF Confirmed By: Jh Nicholas
--- OUTSIDE RECORDS SUMMARY | 2024-05-13 23:19 | External Medical Summary | Summary of Care ---
Author Name Unknown Organization [facility] Address [address] [facility] [place] [address] Phone [phone] Care Team Providers Care Rn Ostomy Name Role Phone Scott Weldon MD Primary Care Provider + Reason for Visit * Reason Comments Chronic Kidney Disease (CKD) Encounter Details Date Type Department Care Team (Late st Contact Info) Description 05/10/2024 4:00 PM EST Office Visit Nephrology, [facility] Mel[facility] [address] [place] [address] Jonathan Mathew MD [address] [facility] [place] [address] Stage 3b chronic kidney disease (HCC)*; Type 2 diabetes mellitus with hemoglobin A1c goal of less than 8.0% (HCC); HTN, goal below 130/80 Allergies Active Allergy Reactions Criticality Noted Date Comments Naproxen Sodium Bleeding High 11/29/2013 Pollen 12/03/2022 Seasonal Food (See Comments) Anaphylaxis High 04/20/2019 Hot peppers (oils) Kiwi Extract Anaphylaxis High 04/20/2019 documented as of this encounter (statuses as of 05/11/2024) Medications ONETOUCH ULTRASOFT LANCETS MISCIndications:D M type 2, not at goal (HCC) check FS 6 times daily 4 Box 5 015 Active insulin glargine (LANTUS SOLOSTAR) 100 UNIT/ML SOPN 50 units daily in case of pump malfunction 5 Pre-filled Pen Syringe Dosing Unit 3 016 Active B-D Ultrafine III, 5MM, Pen MISC Use as directed. 100 Pre-filled Pen Syringe Dosing Unit 3 016 Active Glucose Blood (SYLVIA CONTOUR NEXT TEST) STRP Use to test blood sugar up to 6 times per day. E11.9 These are the ONLY test strips patient can use with insulin pump 200 Strip 5 017 Active Insulin Infusion Pump (MINIMED 630G INSULIN PUMP) KITIndications:Ty pe 2 diabetes mellitus with hemoglobin A1c goal of less than 8.0% (HCC) Use as directed. 018 Active CPAP every night at bedtime. Active Glucagon Emergency 1 MG Injection Kit As directed 1 Kit 3 023 Active Dicyclomine HCl 20 MG Oral Tablet (Bentyl) Take 1 Tablet by mouth 2 times a day as needed for Pain or Cramping. 180 Tablet 3 023 Active Naloxone HCl 4 MG/0.1ML Nasal Liquid (Narcan Nasal)Indications :Controlled substance agreement signed,Chronic pain syndrome Administer 1 spray into 1 nostril for suspected opioid overdose. Seek immediate medical attention. [email or web address] 1 Each 3 023 Active Loratadine 10 MG Oral Tablet (Claritin)Indicat ions:Allergic rhinitis TAKE 1 TABLET BY MOUTH IN THE MORNING FOR ALLERGIES. 90 Tablet 1 023 Active Additional Information Patient taking differently:10 mg Oral Daily(AM), For allergies.,Indications: as needed, Reported on 05/10/2024 NovoLIN R ReliOn 100 UNIT/ML Injection Solution (insulin REGULAR human)Indications :Type 2 diabetes mellitus with hemoglobin A1c goal of less than 8.0% (HCC),DM type 2, not at goal (HCC) INJECT UP TO 200 UNITS SUBCUTANEOSULY ONCE DAILY VIA PUMP 60 mL 023 Active Ondansetron 8 MG Oral Tablet Disintegrating (Zofran) PLACE 1 TABLET ON TONGUE AND DISSOLVE EVERY 8 HOURS NEEDED FOR NAUSEA 30 Tablet 024 Active Meclizine HCl 25 MG Oral Tablet (Antivert)Indicat ions:Vertigo Take 1 Tablet by mouth 3 times a day as needed for Dizziness. 30 Tablet 1 024 Active Atenolol 25 MG Oral Tablet (Tenormin) Take 1 Tablet by mouth in the morning and 1 Tablet before bedtime. Active Potassium Chloride Laura ER 20 MEQ Oral Tablet Extended Release Take 1 Tablet by mouth in the morning. 90 Tablet 3 03/17/20 24 6:06 PM EDT 024 Active Magnesium Oxide -Mg Supplement 400 (240 Mg) MG Oral Tablet (Mag-Ox)Indicatio ns:Hypomagnesemia Take 1 Tablet by mouth in the morning. 90 Tablet 3 04/07/20 24 6:26 PM EDT 024 Active Atorvastatin Calcium 40 MG Oral Tablet (Lipitor)Indicati ons:Dyslipidemia, goal LDL below 100 Take 1 Tablet by mouth at bedtime. 90 Tablet 3 02/27/20 24 1:51 PM EDT 024 Active Pantoprazole Sodium 40 MG Oral Tablet Delayed Release (Protonix)Indicat ions:Esophageal varices without bleeding, unspecified esophageal varices type (HCC),Colitis Take 1 Tablet by mouth in the morning. 90 Tablet 3 05/07/20 24 9:54 AM EST 024 Active Pregabalin 100 MG Oral Capsule (Lyrica)Indicatio ns:Bilateral low back pain with sciatica, sciatica laterality unspecified, unspecified chronicity Take 1 Capsule by mouth in the morning and 1 Capsule at noon and 1 Capsule before bedtime. 300 Capsule 1 04/25/20 24 4:07 PM EST 024 Active metFORMIN HCl 1000 MG Oral Tablet (Glucophage)Indic ations:Type 2 diabetes mellitus with hemoglobin A1c goal of less than 8.0% (HCC) Take 1 Tablet by mouth daily with breakfast. 90 Tablet 3 02/16/20 24 10:37 AM EDT 024 Active Baclofen 10 MG Oral Tablet (Lioresal)Indicat ions:Back spasm Take 1 Tablet by mouth in the morning and 1 Tablet at noon and 1 Tablet before bedtime. 90 Tablet 2 02/23/20 24 4:50 PM EDT 024 Active Furosemide 40 MG Oral Tablet (Lasix) Take 1 Tablet by mouth every other day. 50 Tablet 1 02/19/20 24 3:21 PM EDT Active Empagliflozin 10 MG Oral Tablet (Jardiance)Indica tions:Type 2 diabetes mellitus with hemoglobin A1c goal of less than 8.0% ([facility]) Take 1 Tablet by mouth in the morning. 90 Tablet 3 Active Additional Information Patient not taking.Reported on 05/10/2024 Metoclopramide HCl 5 MG Oral Tablet (Reglan) Take 1 Tablet by mouth in the morning and 1 Tablet at noon and 1 Tablet in the evening. Take before meals. If needed for nausea. 300 Tablet 1 02/27/20 24 1:51 PM EDT Active traZODone HCl 100 MG Oral Tablet (Desyrel) Take 1-2 Tablets by mouth at bedtime. 180 Tablet 1 05/06/20 24 1:57 PM EST Active Escitalopram Oxalate 20 MG Oral Tablet (Lexapro) Take 1 Tablet by mouth in the morning. 90 Tablet 1 Active hydrOXYzine HCl 25 MG Oral Tablet TAKE 1 TABLET BY MOUTH DURING DAY EVERY 4-6 HOURS NEEDED FOR ANXIETY 450 Tablet 1 04/19/20 24 1:53 PM EST Active Eszopiclone 2 MG Oral Tablet (Lunesta) Take 1 Tablet by mouth at bedtime. Do not start before May 04, 2024. 30 Tablet 2 04/29/20 24 9:24 AM EST Active Buprenorphine 5 MCG/HR Transdermal Patch Weekly (Butrans)Indicati ons:Controlled substance agreement signed,Chronic bilateral low back pain with sciatica, sciatica laterality unspecified,Chron ic pain syndrome Place 1 Patch topically on the skin once a week. 4 Patch Active Albuterol Sulfate HFA 108 (90 Base) MCG/ACT Inhalation Aerosol Solution Inhale 2 Puffs by mouth every 6 hours as needed for Shortness of Breath. 18 g 5 03/22/20 24 7:18 AM EDT 2023 Discontinued documented as of this encounter (statuses as of 05/11/2024) Active Problems Problem Noted Date Diagnosed Date [...] as of this encounter (statuses as of 05/11/2024) Resolved Problems Problem Noted Date Diagnosed Date [...] (09/03/2009): Per Obesity Taxonomy Coronary atherosclerosis of [place] coronary artery 09/15/2008 10/03/2008 Malaise and fatigue [...] as of this encounter (statuses as of 05/11/2024) Immunizations Name Administration Dates Next Due COVID-19 mRNA, LNP-s, No Pre serve, 2-Dose Series (Allozyne) 11/08/2020,10/11/2020 HEP A - Hepatitis A (Adult > 18 yrs) 04/11/2011, 09/20/2010 Hepatitis B, 20+ yrs 07/05/2015 Pneumococcal Conjugate Vacci ne, 20-valent ([id number]) 03/13/2023 Pneumococcal Polysaccharide PPV23 (Pneumovax) 02/19/2018,03/09/2007 Seasonal [...] Sign Reading Time Taken Comments Blood Pressure 85/58 05/10/2024 4:43 PM EST Pulse 90 05/10/2024 4:43 PM EST Temperature 36.2 C (97.1 F) 05/10/2024 3:59 PM ES T Respiratory Rate 18 05/10/2024 3:59 PM EST Oxygen Saturation 96% 05/10/2024 3:59 PM EST Inhaled Oxygen Concentration - - Weight 104.8 kg (231 lb) 05/10/2024 3:59 PM EST Height - - Body Mass Index 39.63 03/25/2024 10:47 AM EDT documented in this encounter Functional Status * [...] Teresa Gonzalez LPN documented in this encounter Progress Notes * Jonathan Mathew MD - 05/10/2024 4:01 PM EST Subjective: Carmen Tyson is a 53 year old female. Chief Complaint Patient presents with Chronic Kidney Disease (CKD) HPI: 53-year-old female with history of type [...] pain syndrome migraine history of bipolar obesity. Since last visit----more medications has been taken off. No longer on spironolactone. She was takenoff Lasix also but then she complained about having lower extremity edema and she is on 40 every other day. She does not feel good at this time and has very low blood pressure NSAID No Renal Stone yes . She had kidney stone 20+ years ago spontaneous passage. Never needed any surgery.No residual kidney stone on more recent imaging. Herbal Medication No Urinary Complaints No Current Outpatient Medications Medication Sig Dispense Refill Insulin Infusion Pump (MINIMED 630G INSULIN PUMP) KIT Use as directed. CPAP every night at bedtime. Dicyclomine HCl 20 MG Oral Tablet (Bentyl) Take 1 Tablet by mouth 2 times a day as needed for Pain or Cramping. 180 Tablet 3 Naloxone HCl 4 MG/0.1ML Nasal Liquid (Narcan Nasal) Administer 1 spray into 1 nostril for suspectedopioid overdose. Seek immediate medical attention. [email or web address]://[email or web address].com/[email or web address]?[email or web address] 1 Each 3 Loratadine 10 MG Oral Tablet (Claritin) TAKE 1 TABLET BY MOUTH IN THE MORNING FOR ALLERGIES. (Patient taking differently: Take 1 Tablet by mouth in the morning. For allergies..) 90 Tablet 1 NovoLIN R ReliOn 100 UNIT/ML Injection Solution (insulin REGULAR human) INJECT UP TO 200 UNITS SUBCUTANEOSULY ONCE DAILY VIA PUMP 60 mL 0 Atenolol 25 MG Oral Tablet (Tenormin) [...] 1 Capsule before bedtime. 300 Capsule 1 metFORMIN HCl 1000 MG Oral Tablet (Glucophage) Take 1 Tablet by mouth daily with breakfast. 90 Tablet 3 Baclofen 10 MG Oral Tablet (Lioresal) Take 1 Tablet by mouth in the morning and 1 Tablet at noon and 1 Tablet before bedtime. 90 Tablet 2 Furosemide 40 MG Oral Tablet (Lasix) Take 1 Tablet by mouth every other day. 50 Tablet 1 Metoclopramide HCl 5 MG Oral Tablet (Reglan) Take 1 Tablet by mouth in the morning and 1 Tablet at noon and 1 Tablet in the evening. Take before meals. If needed for nausea. 300 Tablet 1 Albuterol Sulfate HFA 108 (90 Base) MCG/ACT Inhalation Aerosol Solution Inhale 2 Puffs by mouth every 6 hours as needed for Shortness of Breath. 18 g 5 traZODone HCl 100 MG Oral Tablet (Desyrel) Take 1-2 Tablets by mouth at bedtime. 180 Tablet 1 Escitalopram Oxalate 20 MG Oral Tablet (Lexapro) Take 1 Tablet by mouth in the morning. 90 Tablet 1 Eszopiclone 2 MG Oral Tablet (Lunesta) Take 1 Tablet by mouth at bedtime. Do not start before May 04, 2024. 30 Tablet 2 Buprenorphine 5 MCG/HR Transdermal Patch Weekly (Butrans) Place 1 Patch topically on the skin once a week. 4 Patch 0 ONETOUCH ULTRASOFT LANCETS MISC check FS 6 times daily 4 Box 5 insulin glargine (LANTUS SOLOSTAR) 100 UNIT/ML SOPN 50 units daily in case of pump malfunction 5 Pre-filled Pen Syringe Dosing Unit 3 B-D Ultrafine III, 5MM, Pen MISC Use as directed. 100 Pre-filled Pen Syringe Dosing Unit 3 Glucose Blood (Cogo CONTOUR NEXT TEST) STRP Use to test blood sugar up to 6 times per day. E11.9 These are the ONLY test strips patient can use with insulin pump 200 Strip 5 Glucagon Emergency 1 MG Injection Kit As directed 1 Kit 3 Ondansetron 8 MG Oral Tablet Disintegrating (Zofran) PLACE 1 TABLET ON TONGUE AND DISSOLVE EVERY 8 HOURS NEEDED FOR NAUSEA 30 Tablet 0 Meclizine HCl 25 MG Oral Tablet (Antivert) Take 1 Tablet by mouth 3 times a day as needed for Dizziness. 30 Tablet 1 Empagliflozin 10 MG Oral Tablet (Jardiance) Take 1 Tablet by mouth in the morning. (Patient not taking: Reported on 05/10/2024) 90 Tablet 3 hydrOXYzine HCl 25 MG Oral Tablet TAKE 1 TABLET BY MOUTH DURING DAY EVERY 4-6 HOURS NEEDED FOR ANXIETY 450 Tablet 1 No current facility-administered medications for [...] DIAGNOSTIC performed by Aj Pruett DO [facility] COLONOSCOPY, DIAGNOSTIC (RECTUM) 10/05/2023 hemorrhoids/biopsies show hyperplastic and inflammatory tissue/recall 5 years/COLONOSCOPY FLEXIBLE PROXIMAL DIAGNOSTIC performed by Aj Pruett DO at ENDOSCOPY [facility] EGD, FLEXIBLE, DIAGNOSTIC 01/22/2011 UPPER GI ENDOSCOPY DIAGNOSTIC performed by STACEY BENNETT at ENDOSCOPY [facility] EGD, FLEXIBLE, DIAGNOSTIC 01/19/2014 portal hypertensive gastropathy, benign gastric polyp, repeat 2 yrs/done @ [facility] EGD, FLEXIBLE, DIAGNOSTIC 02/08/2016 normal bx, portal hypertensive gastropathy, repeat 1.5 yrs/[facility] EGD, FLEXIBLE, DIAGNOSTIC 08/25/2017 retained food, repeat 1 yr/ESOPHAGOGASTRODUODENOSCOPY (EGD), FLEXIBLE, TRANSORAL, DIAGNOSTIC performed by Aj Pruett DO at ENDOSCOPY [facility] EGD, FLEXIBLE, DIAGNOSTIC 12/15/2018 esophageal varices, gastritis, gastric polyp, repeat 1 yr/ESOPHAGOGASTRODUODENOSCOPY (EGD), FLEXIBLE, TRANSORAL, DIAGNOSTIC performed by Aj Pruett DO at ENDOSCOPY [facility] EGD, FLEXIBLE, DIAGNOSTIC 01/31/2020 fundic polyps, eso varices, portal hypertensive gastropathy, repeat 1 yr / ESOPHAGOGASTRODUODENOSCOPY (EGD), FLEXIBLE, TRANSORAL, DIAGNOSTIC performed by Aj Pruett DO at ENDOSCOPY [facility] EGD, FLEXIBLE, DIAGNOSTIC 10/09/2022 grade I esophageal varices/portal hypertension gastropathy/medium amount of food in stomach/ESOPHAGOGASTRODUODENOSCOPY (EGD), FLEXIBLE, TRANSORAL, DIAGNOSTIC performed by Aj Pruett DO at ENDOSCOPY [facility] EGD, FLEXIBLE, DIAGNOSTIC 10/05/2023 grade II esophageal varices/portal hypertensive gastropathy/multiple gastric polyps, resected and retrieved, clips placed/biopsies show fundic polyps/repeat 6 months/ESOPHAGOGASTRODUODENOSCOPY (EGD),FLEXIBLE, TRANSORAL, DIAGNOSTIC performed by Aj Pruett DO at ENDOSCOPY [facility] EGD, FLEXIBLE, DIAGNOSTIC 03/25/2024 grade II esophageal varices/portal hypertensive gastropathy/several endoclips stomach/multiple gastric polyps/biopsies show fundic polyps/recall 12-18 months/ESOPHAGOGASTRODUODENOSCOPY (EGD), FLEXIBLE, TRANSORAL, DIAGNOSTIC performed by Aj Pruett DO at ENDOSCOPY [facility] EGD, FLEXIBLE, W/BIOPSY 07/27/2012 small fundic stomach polyp/inflammation r/t reflux-repeat EGD in 1 yr EGD, W/ENDOSCOPIC US 01/22/2011 UPPER GI ENDOSCOPY ENDOSCOPIC ULTRASOUND performed by STACEY BENNETT at ENDOSCOPY [facility] EVAL NEUROSTIM PULSE GEN, W/ REPROGRAM N/A 06/27/2022 NEUROSTIMULATOR PULSE GENERATOR/ TRANSMITTER, WITH INTRAOPERATIVE OR SUBSEQUENT PROGRAMMING performed by Rafia Small MD at OR [facility] EVAL NEUROSTIM PULSE GEN, W/ REPROGRAM N/A 08/22/2022 NEUROSTIMULATOR PULSE GENERATOR/ TRANSMITTER, WITH INTRAOPERATIVE OR SUBSEQUENT PROGRAMMING performed by Rafia Small MD at OR [facility] HYSTEROSCOPY,DIAGNOSTIC 07/16/2006 NovaSure endomentrial ablation IMPLANT EPIDURAL NEUROELECTRODES N/A 06/27/2022 PERCUTANEOUS IMPLANTATION NEUROSTIMULATOR EPIDURAL performed by Rafia Small MD at OR [facility] IMPLANT EPIDURAL NEUROELECTRODES N/A 08/22/2022 PERCUTANEOUS IMPLANTATION NEUROSTIMULATOR EPIDURAL performed by Rafia Small MD at OR [facility] IMPLANT SPINAL NEURORECEIVER N/A 08/22/2022 INSERTION OR REPLACEMENT SPINAL NEUROSTIMULATOR GENERATOR performed by Rafia Small MD atOR [facility] INJECT DX/THER SUBSTANCE INTERLAMINAR LUMBAR/SACRAL W IMAGE GUIDE 04/13/2017 INJECTION SPINE LUMBAR OR SACRAL performed by Rene Kate, DO at OR [facility] INJECT DX/THER SUBSTANCE INTERLAMINAR LUMBAR/SACRAL W IMAGE GUIDE 12/10/2017 INJECTION SPINE LUMBAR OR SACRAL performed by Rene Kate, DO at [facility] INSER TUNN ACC DEV;5 YRS/OLDER 03/24/2013 03/24/2013 [place] [facility]acement of A-Port central venous access catheter with port Dr. Dewitt IOF CT GUIDED NEEDLE BIOPSY 07/11/2010 CT GUIDED NEEDLE ASPIRATION BIOPSY performed by JAMILA SAWANT at RADIOLOGY [facility] LIGATE/CUT OVIDUCT(S) 07/1995 Review of patient's allergies indicates: Allergen Reactions Aleve [Naproxen Sodium] Bleeding Food (See Comments) Anaphylaxis Hot peppers (oils) Kiwi Extract Anaphylaxis Environmental [Pollen] Seasonal Family History Problem Relation Name Age of Onset Mental Disorder Mother Depression, empysema Heart Disorder Mother CAD, with CABG Eye Problems Mother Glaucoma Other (COPD) Mother Glaucoma Father Diabetes Father on insulin- renal failure Heart Disorder Father enlarged heart, CHF - in january Stroke Father first at 32, smoked Eye Problems Father Glaucoma No Past Hx Sister 15yo Diabetes Brother Hypertension Brother Hypertension Brother Eye Problems Grandmother (Maternal) Gastro-intestinal disorder Grandmother (Paternal) Liver disease Family History of Renal Disease yes. Her father had kidney failure at the last stage of his life. 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 She has very very poor appetite since being on Ozempic OBJECTIVE: PHYSICAL EXAM: This was a telemedicine visit Patient is awake alert normal speech and was able to give detailed account of her complicated medical history No respiratory distress Normal facial appearance BP Readings from Last 4 Encounters: 05/10/24 86/54 04/15/24 108/73 03/25/24 109/68 03/21/24 109/59 Wt Readings from Last 4 Encounters: 05/10/24 104.8 kg (231 lb) 03/25/24 105.2 kg (232 lb) 03/15/24 105.2 kg (232 lb) 02/12/24 104.9 kg (231 lb 3.2 oz) Estimated body mass index is 39.63 kg/m as calculated from the following: Height as of 03/25/24: 1.626 m (5' 4.02"). Weight as of this encounter: 104.8 kg (231 lb). Recent Labs Units 03/10/24 1408 02/11/24 1119 02/03/24 0000 01/28/24 1232 SODIUM - [facility] mmol/L 141 141 -- 144 POTASSIUM - [facility] mmol/L 4.5 4.0 5.0 4.5 CHLORIDE - [facility] mmol/L 101 99 -- 103 CO2 - [facility] mmol/L 30 30 -- 30 ESTIMATED GLOMERULAR FILTRATION RATE - [facility] mL/min 51* 38* 41.2 37* BUN - [facility] mg/dL 15 20 -- 23* CREATININE - [facility] mg/dL 1.3* 1.6* 1.45* 1.7* Recent Labs Units 04/15/24 1112 03/10/24 1408 01/28/24 1232 01/18/24 1105 HGB g/dL 11.0* 11.4* 11.8* 11.5* FERRITIN - [facility] ng/mL 117 41 -- 34 TRANSFERRIN SATURATION PERCENT - [facility] % 24 14* -- 14* Recent Labs Units 03/10/24 1408 02/11/24 1119 01/28/24 1232 11/13/23 1007 10/22/23 1153 10/02/23 1315 09/23/23 1427 09/08/23 1509 08/27/23 0953 CALCIUM - [facility] mg/dL 9.2 9.1 9.2 < > 8.9 8.7 8.9 < > 8.8 PHOSPHORUS - [facility] mg/dL -- -- -- -- 3.1 3.1 -- -- 2.8 25-HYDROXY VITAMIN D - [facility] ng/mL -- -- -- -- -- -- 32 -- -- PTH - [facility] pg/mL -- -- -- -- -- -- 102* -- -- < > = values in this interval not displayed. Recent Labs Units 11/13/23 1007 07/23/23 1200 02/18/23 1326 HEMOGLOBIN A1C - [facility] % 6.3* 5.8* 5.7* Recent Labs Units 10/02/23 1315 09/23/23 1434 07/23/23 1203 04/06/23 1524 ALBUMIN / CREATININE RATIO, URINE - [facility] mg/g Creat -- -- <21 <7 PROTEIN/ CREATININE RATIO, URINE - [facility] mg/g <98 62 -- -- ASSESSMENT: Stage 3b chronic kidney disease (HCC) (Primary) 53-year-old female with complicated medical problems including longstanding diabetes which started at young age of onset and is already associated with retinopathy. On top of that she also has liver cirrhosis secondary to MENDEZ, obstructive sleep apnea. GFR has trended down in the last few months. Will do labs as below with her labs that she is regularly gets through Hematology - NEPHROLOGY FOLLOW UP APPT (DEPARTMENT USE ONLY); Future; Expected date: 11/08/2024 Type 2 diabetes mellitus with hemoglobin A1c goal of less than 8.0% ([facility]) Diabetes is completely at goal with the last A1c of 6.3%. HTN, goal below 130/80 Her blood pressure is very low today. She feels lightheaded and sluggish. She can keep her eyes open also and seems like having somewhat slurred speech. She is on many medications which can affect in this way. I do not feel comfortable and safe to send her home by herself. We tried to call her . We then called her son. I think she is having effects of polypharmacy and we seriously need to deescalate multiple medication she is on We will observe her for sometime and decide whether she can go home with family attendant or whether we need to send her to the emergency department. She wants to go home by herself but she is not clem shape to drive her car Finally we did get hold of her and he is going to come to pick her up. I spent a total of 40-54 minutes (exact time 42 mins) on the date of service in preparation, delivery, and documentation of the care provided to Carmen Tyson excluding any time spent in the performance of separately billed services or time spent by another provider/QHP. Jonathan Mathew MD documented in this encounter Nursing Notes * Carmen Ocasio RN - 05/11/2024 8:07 AM EST Late entry note for 05/10/24- After further discussion with pt,she was in agreement for me to activate 911 as she was feeling very weak. Blood pressure remained 85/50. arrived at the clinic and EMS arrived at the same time. Pt complained of seeing black spots when she was assisted to litter for transfer. Pt was transported from Nephrology Clinic via EMS to [facility] ER. * Carmen Ocasio RN - 05/10/2024 4:51 PM EST updated regarding pt request to call 911. is enroute. Pt remains alert. Refusing tolie down due to weakness needed to transfer. This nurse remains with pt . Offered water to drink but she states she is nauseous and would not drink. She is diabetic. Her glucose monitor is showing 154. * Carmen Ocasio RN - 05/10/2024 4:38 PM EST Pt is having slurred speech and feels she is unable to walk at this time. Due to lethargy,pt advised to not drive home. Sim notified that he will need to pick pt up due to hypotension and feeling lightheaded. Offered pt to go to ER. Initially refused. Pt reports that she feels funny. After brief conversation, pt does feel it to be in her best interest if I called the ambulance. Will update that I have called 911. * Carmen Ocasio RN - 05/10/2024 4:05 PM EST Pt states she was dizzy when she stood up. * Carmen Ocasio RN - 05/10/2024 4:01 PM EST Follow up visit today. States she is feeling funny right now. States she did eat and drink today. documented in this encounter Plan of Treatment Upcoming Encounters Date Type Department Care Team (Late st Contact Info) Description 05/12/2024 8:00 AM EST Imaging [facility] 2nd Floor Cardiology, [place] [address] [facility] [place] [phone] 05/13/2024 2:00 PM EST Hem/Onc Treatment Hematology/Oncology Treatment, [place] [address] [place] [phone] Nora, Chair 6 Hem Onc Scenery [address] [place] [address] 05/16/2024 1:00 PM EST Office Visit Pharmacy, [address] [facility] [place] [phone] Jayesh [address] [place] [address] 06/16/2024 8:30 AM EST Telemedicine Pharmacy, [facility] [address] [facility] [place] [address] [facility] [address], [place] [address] 06/30/2024 8:00 AM EST Office Visit Family Practice [facility] [address] [facility] [place] [address] Scott Weldon MD [address] [facility] [place] [address] 06/30/2024 1:20 PM EST Office Visit [facility]atology, [facility] [address] [facility] [place] [address] Jazzy Chu DO [address] [facility] [address] 07/07/2024 9:30 AM EST Telemedicine Psychiatry [facility] [address] [place] [address] Nhi Fritz CRNP [address] [place] [address] 07/08/2024 10:30 AM EST Telemedicine Gastroenterology, [facility] [address] [facility] [place] [address] Adam Bradshaw CRNP [address] [place] [address] 09/14/2024 2:00 PM EDT Office Visit Hematology/Oncology [facility] [place]az [address] [facility] [place] [place] [id number] Sunil Bourgeois MD [address] [facility] [place] [address] 12/14/2024 12:20 PM EDT Office Visit Family Practice [facility] [address] [place] [id number] Scott Weldon MD [address] [place] [id number] Scheduled Orders Name Type Priority Associated Diagnoses Orde r Schedule CBC WITH WBC DIFFERENTIAL Lab Routine Stage 3b chronic kidney disease (HCC) Expected: 05/10/2024 (Approximate), Expires: 11/06/2024 PTH Lab Routine Stage 3b chronic kidney disease (HCC) Expected: 05/10/2024 (Approximate), Expires: 11/06/2024 PROTEIN/ CREATININE RATIO, URINE Lab Routine Stage 3b chronic kidney disease (HCC) Expected: 05/10/2024 (Approximate), Expires: 11/06/2024 RENAL FUNCTION PANEL Lab Routine Stage 3b chronic kidney disease (HCC) Expected: 05/10/2024 (Approximate), Expires: 11/06/2024 URINALYSIS WITH MICROSCOPIC EXAM Lab Routine Stage 3b chronic kidney disease (HCC) Expected: 05/10/2024 (Approximate), Expires: 11/06/2024 25-HYDROXY VITAMIN D Lab Routine Stage 3b chronic kidney disease (HCC) Expected: 05/10/2024 (Approximate), Expires: 11/06/2024 MAGNESIUM Lab Routine Stage 3b chronic kidney disease (HCC) Expected: 05/10/2024 (Approximate), Expires: 11/06/2024 Scheduled Procedures Name Priority Associated Diagnoses Date/Ti [...] encounter Medical Devices Implanted Type Area Cloth Covered Helmet Puller Device Identifier Shelf Expiration Date Model / Serial / Lot Neurostimul Intellis [employer]iv - [id number] - [id number] Implanted:Qty: 1 on 08/22/2022 by Rafia Small MD at OR [facility] N/A: Spine Lumbar [employer] 06/21/2023 [id number] / [id number] / Description:battery Medtronic Lead Kit 60 Cm Implanted:Qty: 1 on 08/22/2022 by Rafia Small MD at OR [facility] N/A: Spine Lumbar 02/01/2026 [id number] / / [id number] Medtronic Lead Kit 60cm Implanted:Qty: 1 on 08/22/2022 by Rafia Small MD at OR [facility] N/A: Spine Lumbar 03/21/2026 [id number] / / [id number] Envelope Tyrx Med Antibacteril - [id number] Implanted:Qty: 1 on 08/22/2022 by Rafia Small MD at OR [facility] N/A: Spine Lumbar [employer] 03/10/2023 [id number] / / [id number] Hemostatic Clip Res 235cm - [id number] Implanted:Qty: 4 on 10/05/2023 by Aj Pruett DO at ENDOSCOPY [facility] [employer] [facility] ENDOSCOPY 02/03/2026 [id number] / / Hemostatic Clip Res 235cm - [id number] Implanted:Qty: 1 on 10/05/2023 by Aj Pruett DO at ENDOSCOPY [facility] [employer] : ENDOSCOPY 02/02/2026 [id number] / / documented as of this encounter Visit Diagnoses Diagnosis Stage 3b chronic kidney disease (HCC)- Primary Type 2 diabetes mellitus with hemoglobin A1c goal of less than 8.0% (HCC) HTN, goal below 130/80 Unspecified essential hypertension documented in this encounter Advance Directives * [...] of Attor narda? No Care Teams Rn Ostomy Relationship Specialty Start Date End Date Scott Weldon MD [address] [place] [address] PCP - General Family Medicine 08/03/18 documented as of this encounter
[2024-05-17 11:42] LABS: Fentanyl, Urine 0.6 ng/mL (<0.5); MDA negative; MDEA negative; MDMA (Ecstasy) Urine, Confirm negative; Norfentanyl, Urine 3.8 ng/mL (<0.5); medMATCH Fentanyl, Urine DNR; medMATCH Norfentanyl, Urine DNR
== END 2024-05-13 11:14 | disposition home or self-care (01) | DRG 391 ==
LOC: ED 17:38 → EDINP 17:38 → SUATTDRO 23:41 → EDINP 05-11 00:02 → 2N 05-11 14:51

== ENCOUNTER 2024-05-28 10:07 | Inpatient (IN) ==
--- NOTE | 2024-05-28 10:15 | Emergency Department Note ---
Impression & Plan EVA (acute kidney injury), Abdominal pain, Pancytopenia, NAFLD (nonalcoholic fatty liver disease) ED Provider Note NAME: JUDY CLAYTON AGE: 53 SEX: F : 1970 ARRIVES VIA: Ambulance INFORMANT: Patient, nursing report ED PROVIDER(S): Gabriel Oliver MD CHIEF COMPLAINT: Abdominal pain MEDICAL DECISION MAKING: Patient presented due to concern for abdominal pain. IV was established and blood work was obtained. Patient's blood work showed a leukopenia anemia and thrombocytopenia. Patient has had lower counts in the past. Patient's kidney function shows EVA. LFTs unremarkable exception of mild ovation alk phos. Patient CT shows the possibility of gallbladder distention. Cirrhosis and splenomegaly noted. The patient's gallbladder ultrasound was ordered patient was ordered additional IV pain medication. The patient did wear require some oxygen due to concerns for hypoxia in the high 80s. Patient's ultrasound is negative. Given the patient's EVA and associated pain it is with the on-call hospital service and the patient was admitted to the medicine service. Discussion w/ other healthcare providers: Dr. Marvin Franklin inpatient service Prior /Outside records reviewed: I reviewed part of a discharge summary from May 13, [address] Johnson. The patient was admitted for near syncope. Known history of seizure disorder hypertension hyperlipidemia CVA chronic left-sided hemiparesis NAFLD cirrhosis liver malignancy type 2 diabetes CKD baseline creatinine 1.4 chronic pain on [place]. Prior to this admission the patient had been admitted for hypotension and acute renal failure and at that time Aldactone and losartan were discontinued. Patient thought to have diarrhea possible viral gastroenteritis and hypotension which has since resolved at time of her admission. Differential diagnosis: Appendicitis, ovarian cyst, ovarian torsion, ectopic , TOA, PID, diverticulitis, UTI, obstruction, inflammatory bowel disease, renal colic, PUD, pancreatitis, biliary pathology, hernia, volvulus, constipation, as well as other pathologies were considered. Wearing glasses. Diagnostics, as interpreted by me: ECG: None Cardiac monitoring: An order was placed for continuous cardiac monitoring. The monitor shows a rate of 85 with sinus rhythm. Patient was placed on pulse oximetry Medical decision rules: None Imaging studies: I informally interpreted the patient's CT abdomen pelvis does not show evidence of obvious obstruction with formal report to follow. HPI: Patient presents due to concern for abdominal pain which began last evening. She also did notice some lower extremity swelling. No history of liver disease and a recent admission for kidney dysfunction dehydration. Patient states that her pain has been intermittent is more in the bilateral lower abdomen. Patient has had associated nausea but no vomiting. No fevers or chills. No cough. Patient states that she did have some blood in the stool on but does have a known history of internal hemorrhoids. Patient states that her pain is worsened with movement. Patient did not take her morning medications. She does follow with Dr. Pruett with GI. Patient did apply a buprenorphine patch and does wear them changing them weekly. Patient denies any falls or trauma. No heavy lifting twisting or turning. No overt masses that she has noticed. Patient denies any dysuria. PAST MEDICAL HISTORY: See Below PAST SURGICAL HISTORY: See Below SOCIAL HISTORY: See Below HOME MEDICATIONS: See Below ALLERGIES: See Below VITALS: See Below PHYSICAL EXAMINATION: GENERAL: N fatigued but nontoxic in appearance. EYE EXAM: Normal conjunctiva. PERRL, no anisocoria and EOM's grossly intact w/o pain. OROPHARYNX: Dry mucus membranes, grossly normal dentition. NECK: Trachea midline, no stridor. Supple, no nuchal rigidity, no adenopathy, non-tender. No signs of meningismus. FROM of the neck with good chin to chest and neck extension. LUNGS: Clear to auscultation. Normal chest wall mechanics. HEART: NSR, no MRG. ABDOMEN: Abdomen soft, mild distention, right-sided upper and lower abdominal pain, also left lower abdominal pain, no epigastric or suprapubic pain. No masses, no rebound or guarding. BACK: No CVA TTP. SKIN: No rashes and no bruising. UPPER EXTREMITIES: Upper extremities are grossly normal. LOWER EXTREMITIES: Grossly normal, no edema. NEURO EXAM: A&O x3, cranial nerves II-XII grossly intact, normal speech, moves all 4 extremities. Past Med/Surg History Problem List (Updated 05/28/24 @ 15:44 by Gabriel Oliver MD) NAFLD (nonalcoholic fatty liver disease) (Acute) Pancytopenia (Acute) Abdominal pain (Acute) Near syncope Encephalopathy Polypharmacy (Acute) Drowsiness (Acute) Dizziness (Acute) EVA (acute kidney injury) (Acute) Falls (Acute) Abdominal pain (Acute) EVA (acute kidney injury) (Acute) Hypotension (Acute) Hematemesis (Acute) Bright red rectal bleeding (Acute) Abdominal pain (Acute) Acute hypoxemic respiratory failure Hypoxia (Acute) Pneumonia due to COVID-19 virus (Acute) Hypophosphatemia (Acute) Seizure (Acute) Right flank pain (Acute) History of liver cancer (Acute) DVT prophylaxis Seizure (Acute) UTI (urinary tract infection) (Acute) Hypomagnesemia (Acute) Dehydration (Acute) Hyperglycemia (Acute) Rene's paralysis (Acute) Hepatocellular carcinoma Epileptic seizure (Acute) Anemia (Acute) Thrombocytopenia T2DM (type 2 diabetes mellitus) (Chronic) GERD (gastroesophageal reflux disease) (Chronic) Bipolar disorder (Chronic) Chronic pain (Chronic) HTN (hypertension) (Chronic) HLD (hyperlipidemia) (Chronic) Depression (Chronic) DONNA (obstructive sleep apnea) (Chronic) Back pain (Chronic) Liver cirrhosis secondary to MENDEZ (Acute) Medical History (Updated 05/28/24 @ 15:44 by Gabriel Oliver MD) Stroke Seizure Vertigo Liver cancer H/O TIA (transient ischemic attack) and stroke Hypertension Surgical History History of tubal ligation History of hysterectomy Family History Other No significant family history Social History Smoking Status: Never smoker Tobacco Type: Cigarettes Second Hand Exposure: No; Do You Dip or Chew Tobacco: No; Hx Alcohol Use: No Hx Substance Use: No Preferred Language: Greenlandic Communication Ability: Effective Bilingual Operator Required: No Beliefs That Will Affect Care: None Current Living Situation: Spouse Current Living Situation Comment: and a son Feels Safe at Home: Yes Assistive Devices: Cane and Glasses Allergies Allergies Allergy/AdvReac Type Severity Reaction Status Date / Time naproxen Allergy Unknown BLEEDING Verified 08/11/23 20:32 Home Meds Home Medications Medication Instructions Recorded Confirmed albuterol sulfate 90 mcg/actuation 2 puff inhalation Q6 PRN Shortness 08/11/23 05/28/24 aerosol inhaler Of Breath Or Wheezing atorvastatin 40 mg tablet 40 mg PO DAILYBL 08/11/23 05/28/24 baclofen 10 mg tablet 10 mg PO TID 08/11/23 05/28/24 buprenorphine 5 mcg/hour weekly 1 patch topical WK 08/11/23 05/28/24 transdermal patch dicyclomine 20 mg tablet 20 mg PO HS 08/11/23 05/28/24 escitalopram oxalate 20 mg tablet 20 mg PO DAILY 08/11/23 05/28/24 eszopiclone 2 mg tablet 2 mg PO HS 08/11/23 05/28/24 hydroxyzine HCl 25 mg tablet 25 mg PO UD Anxiety 08/11/23 05/28/24 insulin regular human 100 unit/mL 0 unit continuous subcutaneous 08/11/23 05/28/24 injection solution (Novolin R infusion DIRECTED Regular U-100 Insulin) loratadine 10 mg tablet 10 mg PO QAM PRN Other 08/11/23 05/28/24 magnesium oxide 400 mg PO DAILY 08/11/23 05/28/24 meclizine 25 mg tablet 25 mg PO TID PRN .dizzy 08/11/23 05/28/24 metformin 1,000 mg tablet 1,000 mg PO DAILY 08/11/23 05/28/24 metoclopramide HCl 5 mg tablet 5 mg PO AC PRN Nausea 08/11/23 05/28/24 naloxone 4 mg/actuation nasal spray 4 mg intranasal DIRECTED PRN 08/11/23 05/28/24 opiod od ondansetron 8 mg disintegrating 8 mg translingual Q8 PRN Nausea 08/11/23 05/28/24 tablet pregabalin 100 mg capsule 100 mg PO TID 08/11/23 05/28/24 trazodone 100 mg tablet 100 - 200 mg PO HS 08/11/23 05/28/24 pantoprazole 40 mg tablet,delayed 40 mg PO DAILY 02/02/24 05/28/24 release Previous Rx's Medication Instructions Recorded atenolol 25 mg tablet 25 mg PO BID #60 tabs 02/04/24 furosemide 40 mg tablet 40 mg PO Q OTHER DAY #0 tabs 02/04/24 potassium chloride 10 mEq 20 meq (2 x 10 mEq) PO DAILY #0 02/04/24 tablet,extended release tabs Results & Data (ED) Vital Signs Vital Signs - 24 hr 05/28/24 10:17 05/28/24 10:20 05/28/24 10:28 Temperature 36.7 C Temperature Source Oral Pulse Rate 81 77 Pulse Rate [Finger] Pulse Rate from SpO2 Sensor Respiratory Rate 15 Respiratory Effort / Characteristics Respiratory Depth Blood Pressure 139/91 Blood Pressure [Left Arm] Blood Pressure Mean 107 Blood Pressure Mean [Left Arm] Pulse Oximetry 97 96 Oxygen Delivery Method Room Air Room Air Oxygen Flow Rate Sepsis Recent Fever Within 48 Hours No Sepsis New/Unexplained Change in Mental Status N/A Sepsis Action Taken by Nursing No Action Required 05/28/24 10:30 05/28/24 10:33 05/28/24 10:39 Temperature Temperature Source Pulse Rate 81 78 Pulse Rate [Finger] Pulse Rate from SpO2 Sensor 80 77 Respiratory Rate 17 14 Respiratory Effort / Characteristics Respiratory Depth Blood Pressure 141/84 H Blood Pressure [Left Arm] Blood Pressure Mean 101 Blood Pressure Mean [Left Arm] Pulse Oximetry 95 94 Oxygen Delivery Method Oxygen Flow Rate Sepsis Recent Fever Within 48 Hours Sepsis New/Unexplained Change in Mental Status Sepsis Action Taken by Nursing 05/28/24 11:08 05/28/24 11:31 05/28/24 13:00 Temperature Temperature Source Pulse Rate Pulse Rate [Finger] Pulse Rate from SpO2 Sensor Respiratory Rate Respiratory Effort / Characteristics Respiratory Depth Blood Pressure 123/87 117/76 126/78 Blood Pressure [Left Arm] Blood Pressure Mean 98 90 99 Blood Pressure Mean [Left Arm] Pulse Oximetry Oxygen Delivery Method Oxygen Flow Rate Sepsis Recent Fever Within 48 Hours Sepsis New/Unexplained Change in Mental Status Sepsis Action Taken by Nursing 05/28/24 13:00 05/28/24 13:18 05/28/24 13:21 Temperature Temperature Source Pulse Rate 82 88 Pulse Rate [Finger] Pulse Rate from SpO2 Sensor 84 84 Respiratory Rate 18 18 Respiratory Effort / Characteristics Respiratory Depth Blood Pressure 126/78 Blood Pressure [Left Arm] Blood Pressure Mean 99 Blood Pressure Mean [Left Arm] Pulse Oximetry 91 90 Oxygen Delivery Method Oxygen Flow Rate Sepsis Recent Fever Within 48 Hours Sepsis New/Unexplained Change in Mental Status Sepsis Action Taken by Nursing 05/28/24 13:57 05/28/24 14:00 05/28/24 14:00 Temperature Temperature Source Pulse Rate 82 Pulse Rate [Finger] Pulse Rate from SpO2 Sensor 79 Respiratory Rate 18 Respiratory Effort / Characteristics Respiratory Depth Blood Pressure 119/86 119/86 Blood Pressure [Left Arm] Blood Pressure Mean 98 98 Blood Pressure Mean [Left Arm] Pulse Oximetry 93 Oxygen Delivery Method Oxygen Flow Rate Sepsis Recent Fever Within 48 Hours Sepsis New/Unexplained Change in Mental Status Sepsis Action Taken by Nursing 05/28/24 14:00 05/28/24 14:00 05/28/24 14:21 Temperature Temperature Source Pulse Rate 77 86 Pulse Rate [Finger] Pulse Rate from SpO2 Sensor 78 86 Respiratory Rate 11 L 12 Respiratory Effort / Characteristics Respiratory Depth Blood Pressure 119/86 Blood Pressure [Left Arm] Blood Pressure Mean 98 Blood Pressure Mean [Left Arm] Pulse Oximetry 94 92 Oxygen Delivery Method Oxygen Flow Rate Sepsis Recent Fever Within 48 Hours Sepsis New/Unexplained Change in Mental Status Sepsis Action Taken by Nursing 05/28/24 14:26 05/28/24 14:30 05/28/24 14:30 Temperature Temperature Source Pulse Rate 76 79 Pulse Rate [Finger] Pulse Rate from SpO2 Sensor 78 Respiratory Rate 17 Respiratory Effort / Characteristics Respiratory Depth Blood Pressure Blood Pressure [Left Arm] Blood Pressure Mean Blood Pressure Mean [Left Arm] Pulse Oximetry 85 L 97 Oxygen Delivery Method Room Air Oxygen Flow Rate Sepsis Recent Fever Within 48 Hours Sepsis New/Unexplained Change in Mental Status Sepsis Action Taken by Nursing 05/28/24 14:32 05/28/24 14:48 05/28/24 15:00 Temperature Temperature Source Pulse Rate 80 Pulse Rate [Finger] 82 Pulse Rate from SpO2 Sensor 82 Respiratory Rate 16 18 Respiratory Effort / Characteristics Non-Labored Spontaneous Respiratory Depth Normal Blood Pressure Blood Pressure [Left Arm] 132/81 Blood Pressure Mean Blood Pressure Mean [Left Arm] 98 Pulse Oximetry 95 99 98 Oxygen Delivery Method Nasal Cannula Nasal Cannula Oxygen Flow Rate 2 2 Sepsis Recent Fever Within 48 Hours Sepsis New/Unexplained Change in Mental Status Sepsis Action Taken by Correction Medications Current Medication List: was personally reviewed by me Laboratory Data Attestation: I reviewed the patient's lab results. 05/28/24 10:16 05/28/24 10:16 Lab Results 05/28/24 05/28/24 05/28/24 Range/Units 10:16 10:32 10:39 WBC 4.41 L (4.8-10.8) K/ul RBC 4.01 L (4.20-5.40) M/uL Hgb 11.0 L (12.0-16.0) g/dl POC Hgb 10.9 L (12.0-16.0) g/dl Hct 33.7 L (37.0-47.0) % POC Hct 32 L (37-47) % MCV 84.0 (80.0-100.0) fL MCH 27.4 (25.0-34.0) pg MCHC 32.6 (32.0-36.0) g/dL RDW Std Deviation 53.1 H (36.4-46.3) fL RDW Coeff of Bailey 17.2 H (11.5-14.5) % Plt Count 62 L (130-400) K/uL MPV 9.7 (9.4-12.4) fL Immature Gran % (Auto) 0.5 % Neut % (Auto) 67.0 % Lymph % (Auto) 19.7 % Morris % (Auto) 7.3 % Eos % (Auto) 4.8 % Baso % (Auto) 0.7 % Neut # (Auto) 2.96 (1.40-6.50) K/uL Lymph # (Auto) 0.87 L (1.20-3.40) K/uL Morris # (Auto) 0.32 (0.11-0.59) K/uL Eos # (Auto) 0.21 (0.00-0.50) K/uL Baso # (Auto) 0.03 (0.00-0.20) K/uL Immature Gran # (Auto) 0.02 (0.01-0.20) K/uL PT 11.8 (9.0-12.0) Seconds INR 1.1 (0.9-1.1) APTT 26 (21-31) Seconds PTT Ratio 1.0 POC Sodium 144 (135-144) mmol/L Sodium 144 (136-145) mmol/L POC Potassium 4.2 (3.3-5.0) mmol/L Potassium 4.4 (3.5-5.1) mmol/L POC Chloride 104 (101-112) mmol/L Chloride 106 (98-107) mmol/L Carbon Dioxide 32 (21-32) mmol/L POC Total CO2 29 (24-31) mmol/L Anion Gap 6 (3-11) POC Anion Gap 16.0 (16-25) mmol/L POC BUN 33 H (7-18) mg/dl BUN 33 H (6-23) mg/dl Creatinine 2.09 H (0.6-1.2) mg/dl POC Creatinine 2.0 H (0.6-1.3) mg/dl Est Cr Clr Drug Dosing 38.6 ml/min eGFR 28.16 BUN/Creatinine Ratio 15.8 (10-20) Glucose 123 H (70-99(Fasting)) mg/dl POC Glucose (other) 119 H (70-99) mg/dl Calcium 8.9 (8.6-10.3) mg/dl POC Ioniz Calcium Mikhail 1.12 (1.12-1.32) mmol/l Total Bilirubin 0.6 (0.2-1.0) mg/dl AST 26 (13-39) U/L ALT 18 (7-52) U/L Alkaline Phosphatase 191 H (34-104) U/L Ammonia 19.0 (18-72) umol/L Total Protein 6.8 (6.0-8.3) gm/dl Albumin 3.4 (3.4-5.0) gm/dl Globulin 3.4 (2.5-4.0) gm/dl Albumin/Globulin Ratio 1.0 (0.9-2) Lipase 52 (11-82) U/L Administered Medications Discontinued Medications Fentanyl Citrate (Fentanyl Citrate Pf 100 Mcg/2 Ml Vial) 50 mcg IV NOW STA Stop: 05/28/24 11:15 Last Admin: 05/28/24 11:26 Dose: 50 mcg Documented By: ML Fentanyl Citrate (Fentanyl Citrate Pf 100 Mcg/2 Ml Vial) 50 mcg IV NOW STA Stop: 05/28/24 14:03 Last Admin: 05/28/24 14:15 Dose: 50 mcg Documented By: AMS Sodium Chloride (Nss) 250 mls @ 999 mls/hr IV .Q16M ONE Stop: 05/28/24 10:39 Last Infusion: 05/28/24 11:06 Dose: Infused Documented By: Admin: 05/28/24 10:37 Dose: 999 mls/hr Documented By: ML Sodium Chloride (Nss) 500 mls @ 999 mls/hr IV .Q31M ONE Stop: 05/28/24 11:21 Last Infusion: 05/28/24 11:39 Dose: Infused Documented By: Admin: 05/28/24 11:08 Dose: 999 mls/hr Documented By: ML Morphine Sulfate (Morphine Sulfate 4 Mg/Ml 1 Ml Carp\Vial) 4 mg IV NOW STA Stop: 12/21/24 10:23 Last Admin: 05/28/24 10:37 Dose: 4 mg Documented By: ML Ondansetron HCl (Ondansetron Inj 2 Mg/Ml 2 Ml Vial) 4 mg IV NOW STA Stop: 05/28/24 10:25 Last Admin: 05/28/24 10:37 Dose: 4 mg Documented By: ML Imaging Data Radiologist's Impression: Abdomen/Pelvis CT 05/28/24 10:51 EXAM: CT Abdomen and Pelvis Without Intravenous Contrast INDICATION: Right abdominal pain. TECHNIQUE: Axial computed tomography images of the abdomen and pelvis without intravenous contrast. Sagittal and coronal reformatted images were created and reviewed. This CT exam was performed using one or more of the following dose reduction techniques: automated exposure control, adjustment of the mA and/or kV according to patient size, and/or use of iterative reconstruction technique. COMPARISON: 05/10/2024 FINDINGS: Limitations: None. Lung bases: No abnormality noted. Pleural space: No visualized pleural effusion or pneumothorax. Heart: No abnormality noted. Mediastinum: No abnormality noted. ABDOMEN: Liver: Cirrhotic liver unchanged. No visible mass or ductal dilatation. Gallbladder and bile ducts: The gallbladder is mildly distended and may be mildly inflamed. No calcified stones. Pancreas: No pancreatic mass, calcification, inflammation or ductal dilation noted. Spleen: Stable splenomegaly-15.2 cm long. Adrenals: No significant abnormality noted. Kidneys and ureters: Stable mild bilateral perinephric scarring. No stones or hydronephrosis. Stomach and bowel: No change mild increased density in the paracolic fact presumably scarring. No obstruction. No intestinal thickening. PELVIS: Appendix: Well seen and appears normal. Bladder: Appears normal for the degree of filling. No stones or inflammation. No large mass. Masses may not be detected in the absence of opacification. Reproductive: No abnormalities noted. ABDOMEN and PELVIS: Intraperitoneal space: No free air. No significant fluid collection. Bones/joints: No acute changes. Soft tissues: No significant abnormality noted. Vasculature: No abdominal aortic aneurysm. Lymph nodes: No pathologically enlarged lymph nodes. Tubes, lines and devices: Dorsal column electrode terminates in the mid thoracic canal. IMPRESSION: 1. The gallbladder is mildly distended and may be mildly inflamed. No calcified stones. Consider sonography. 2. Cirrhosis and splenomegaly. ACT 112: Negative or not required by law. Electronically signed by Helen Falcon 05-28-2024 11:17 AM Gallbladder Ultrasound 05/28/24 11:28 EXAM:US Abdomen Limited Gallbladder INDICATION: Right abdominal pain. TECHNIQUE: Real-time ultrasound of the gallbladder with image documentation. COMPARISON: No relevant prior studies available. FINDINGS: Liver: Enlarged to 18.1 cm long and is mildly heterogeneous and echogenic. Smooth contour. No ductal dilatation or mass. Gallbladder: No gallstones, wall thickening or surrounding fluid. Common bile duct: No significant abnormality noted. No stones. No dilation. IMPRESSION: 1. Large fatty liver. 2. Normal sonographic appearance of the gallbladder. ACT 112: Negative or not required by law. Electronically signed by Helen Falcon 05-28-2024 12:32 PM Discharge Plan Visit Data Chief Complaint: Abdominal Pain Stated Complaint: AB PAIN ED Provider: Gabriel Oliver Discharge Problem: EVA (acute kidney injury), Abdominal pain, Pancytopenia, NAFLD (nonalcoholic fatty liver disease) Patient Disposition: Admitted As Inpatient Discharge Instructions Interventions: ED Discharge Assessment Last Done: 05/28/24 15:33 Forms Stand Alone Forms: [facility] [employer] Prescriptions Prescriptions: No Action atorvastatin 40 mg tablet 40 mg PO DAILYBL ondansetron 8 mg tablet,disintegrating 8 mg translingual Q8 PRN (Reason: Nausea) metoclopramide HCl 5 mg tablet 5 mg PO AC PRN (Reason: Nausea) trazodone 100 mg tablet 100 - 200 mg PO HS dicyclomine 20 mg tablet 20 mg PO HS meclizine 25 mg Tablet 25 mg PO TID PRN (Reason: .dizzy) baclofen 10 mg tablet 10 mg PO TID metformin 1,000 mg tablet 1,000 mg PO DAILY Novolin R Regular U100 Insulin 100 unit/mL solution 0 unit continuous subcutaneous infusion DIRECTED hydroxyzine HCl 25 mg tablet 25 mg PO UD Rx Instructions: original: 25 mg po tid prn. Per pt she does 2 tablets (50 mg) po tid albuterol sulfate 90 mcg/actuation HFA aerosol inhaler 2 puff INHALATION Q6 PRN (Reason: Shortness Of Breath Or Wheezing) loratadine 10 mg tablet 10 mg PO QAM PRN (Reason: Other) escitalopram oxalate 20 mg tablet 20 mg PO DAILY eszopiclone 2 mg tablet 2 mg PO HS pregabalin 100 mg capsule 100 mg PO TID Rx Instructions: per pt she's trying to reduce her dosing. buprenorphine 5 mcg/hour patch weekly 1 patch topical WK Rx Instructions: sun naloxone 4 mg/actuation spray,non-aerosol 4 mg INTRANASAL DIRECTED PRN (Reason: opiod od) magnesium oxide 400 mg magnesium Tablet 400 mg PO DAILY pantoprazole 40 mg tablet,delayed release (DR/EC) 40 mg PO DAILY furosemide 40 mg tablet 40 mg PO Q OTHER DAY Qty: 0 0RF Hold Instructions: Until eating/drinking at your baseline potassium chloride 10 mEq tablet extended release 20 meq PO DAILY Qty: 0 0RF Rx Instructions: Take with food atenolol 25 mg tablet 25 mg PO BID Qty: 60 0RF Referrals Referrals: Scott Weldon MD [Primary Care Provider] - Discharge Problem: Abdominal pain Qualifiers: Abdominal location: lower abdomen, unspecified Qualified Code(s): R10.30 - Lower abdominal pain, unspecified
--- OUTSIDE RECORDS SUMMARY | 2024-05-28 10:23 | External Medical Summary | Summary of Care ---
Author Name Unknown Organization [facility] Address [address] [place] [address] Phone [phone] Care Team Providers Care Quality Process Lead Name Role Phone Scott Weldon MD Primary Care Provider + Encounter Details Date Type Department Care Team (Late st Contact Info) Description 05/24/2024 2:15 PM EST Scheduled Telephone Care Coordination and Integration [address], [place] [id number] Tania Dove, Community Health Yarding Engineer [address], [place] [phone] Allergies Active Allergy Reactions Criticality Noted Date Comments Naproxen Sodium Bleeding High 11/29/2013 Pollen 12/03/2022 Seasonal Food (See Comments) Anaphylaxis High 04/20/2019 Hot peppers (oils) Kiwi Extract Anaphylaxis High 04/20/2019 documented as of this encounter (statuses as of 05/24/2024) Medications insulin glargine (LANTUS SOLOSTAR) 100 UNIT/ML SOPN [...] 5 02/18/20 17 Active Insulin Infusion Pump ([email or web address] 630G INSULIN PUMP) KITIndications:Typ e 2 diabetes [...] suspected opioid overdose. Seek immediate medical attention. [email or web address] 1 Each 3 11/28/19 23 Active Loratadine 10 MG Oral Tablet (Claritin)Indicati ons:Allergic rhinitis TAKE 1 TABLET BY MOUTH IN THE MORNING FOR ALLERGIES. 90 Tablet 1 04/13/20 23 Active Additional Information Patient taking differently:10 mg Oral Daily(AM), For allergies.,Indications: as needed, Reported on 05/18/2024 NovoLIN R ReliOn 100 UNIT/ML Injection Solution [...] Dizziness. 30 Tablet 1 02/03/20 24 Active Potassium Chloride Laura ER 20 [...] mouth at bedtime. 90 Tablet 3 4 11:12 AM EST 02/12/20 24 Active Pantoprazole Sodium 40 MG Oral Tablet Delayed Release (Protonix)Indicati ons:Esophageal varices without bleeding, unspecified esophageal varices type (HCC),Colitis Take 1 Tablet by mouth in the morning. 90 Tablet 3 4 9:54 AM EST 02/12/20 24 Active Pregabalin 100 MG Oral Capsule (Lyrica)Indication s:Bilateral low back pain with sciatica, sciatica laterality unspecified, unspecified chronicity Take 1 Capsule by mouth in the morning and 1 Capsule at noon and 1 Capsule before bedtime. 300 Capsule 1 4 4:07 PM EST 02/13/20 24 Active Furosemide 40 MG Oral Tablet (Lasix) Take 1 Tablet by mouth every other day. 50 Tablet 1 4 8:54 AM EST 02/19/20 24 Active Empagliflozin 10 MG Oral Tablet (Jardiance)Indicat ions:Type 2 diabetes mellitus with hemoglobin A1c goal of less than 8.0% (HCC) Take 1 Tablet by mouth in the morning. 90 Tablet 3 02/26/20 24 Active Additional Information Patient not taking.Reported on 05/18/2024 Metoclopramide HCl 5 MG Oral Tablet (Reglan) Take 1 Tablet by mouth in the morning and 1 Tablet at noon and 1 Tablet in the evening. Take before meals. If needed for nausea. 300 Tablet 1 4 1:51 PM EDT 02/26/20 24 Active traZODone HCl 100 MG Oral Tablet (Desyrel) Take 1-2 Tablets by mouth at bedtime. 180 Tablet 1 4 1:57 PM EST 04/14/20 24 Active Escitalopram Oxalate 20 MG Oral Tablet (Lexapro) Take 1 Tablet by mouth in the morning. 90 Tablet 1 4 5:54 PM EST 04/14/20 24 Active Eszopiclone 2 [...] a week. 4 Patch 05/04/20 24 Active Albuterol Sulfate HFA 108 (90 Base) MCG/ACT Inhalation Aerosol Solution Inhale 2 puffs by mouth every 6 hours as needed for shortness of breath 20.1 g 03/19/20 24 Active Baclofen 10 MG Oral Tablet (Lioresal)Indicati ons:Back spasm Take 1 Tablet by mouth in the morning and 1 Tablet at noon and 1 Tablet before bedtime. 90 Tablet 2 4 1:21 PM EST 05/16/20 24 Active Ozempic (2 MG/DOSE) 8 MG/3ML Subcutaneous Solution Pen-injector (Semaglutide (2 MG/DOSE)) Inject under the skin. Obtaining from [employer] Active documented as of this encounter (statuses as of 05/24/2024) Active Problems Problem Noted Date Diagnosed Date [...] as of this encounter (statuses as of 05/24/2024) Resolved Problems Problem Noted Date Diagnosed Date [...] (09/03/2009): Per Obesity Taxonomy Coronary atherosclerosis of [place] [...] as of this encounter (statuses as of 05/24/2024) Immunizations Name Administration Dates Next Due COVID-19 mRNA, LNP-s, No Pre serve, 2-Dose Series (Pfizer) 11/08/2020,10/11/2020 HEP A - Hepatitis A (Adult > 18 yrs) 04/11/2011, 09/20/2010 Hepatitis B, 20+ yrs 07/05/2015 Pneumococcal Conjugate Vacci ne, 20-valent ([id number]) 03/13/2023 Pneumococcal Polysaccharide PPV23 (Pneumovax) 02/19/2018,03/09/2007 Seasonal [...] Answer Date Recorded PHQ Adult Total Score 1 05/17/2024 Hunger Vital Sign Answer Date Recorded Within the past 12 months, y ou worried that your food would run out before you got the money to buy more. Never true 05/17/20 24 Within the past 12 months, t he food you bought just didn't last and you didn't have money to get more. Never true 05/17/2024 Childcare Answer Date Recorded Do you feel overwhelmed with taking care of a child, family member or friend? No 05/17/2024 Does your family need help f inding childcare? (Household - for ages 0-17 years) Not on file 05/17/2024 Clothing Answer Date Recorded Have you been unable to get clothing when it was really needed? No 05/17/2024 Is your family able to get c lothes or diapers when needed? (Household - for ages 0-17 years) Not on file 05/17/2024 Personal Safety Answer Date Recorded Do you feel unsafe or have concerns for your saf ety? No 05/17/2024 Do you have concerns for you r family's safety? (Household - for ages 0-17 years) Not on file 05/17/2024 Utilities Answer Date Recorded Do you have trouble paying y our heating, water, or electric bill? No 05/17/2024 Is your family able to pay t he heat, water, or electric bill? (Household - for ages 0-17 years) Not on file 05/17/2024 Does your family have access to good internet? (Household - for ages 0-17 years) Not on file 05/17/2024 Employment Status Answer Date Recorded Are you unemployed or without regular income? No 05/17/2024 Does the household have a re lar source of income? (Household - for ages 0-17 years) Not on file 05/17/2024 Social Connections Answer Date Recorded How often do you feel lonely or isolated from th ose around you? Never 05/17/2024 Financial Resource Strain Answer Date R ecorded Do you have any trouble payi ng for your medications, or do you think you might in the future? No 05/17/2024 Does your family have troubl e paying for medicine? (Household - for ages 0-17 years) Not on file 05/17/2024 Transportation Needs Answer Date Record ed READ ONLY Do you have troubl e getting a ride to medical visits or work? Sometimes True 05/17/2024 Does your family have a hard time getting a ride to doctors visits? (Household - for ages 0-17 years) Not on file 05/17/2024 Has lack of transportation k ept you from medical appointments, meetings, work, or from getting things needed for daily living? Check all that apply. No 024 Do you (or your family) have trouble finding or paying for a ride (transportation)? (Household - for ages 0-17 years) Not on file 05/17/2024 Housing Stability Answer Date Recorded Do you currently live in a s helter or have no steady place to sleep at night? No 05/17/2024 READ ONLY Do you think you a re at risk of becoming homeless? No 05/17/2024 Does your family worry about paying for your home or becoming homeless? (Household - for ages 0-17 years) Not on file 1 07/18/2023 Are you homeless or worried that you might be in the future? No 05/17/2024 Are you (or your family) ruben eless or worried that you might be in the future? (Household - for ages 0-17 years) Not on file Food Insecurity Answer Date Recorded Do you need food for this week? No 05/17/2024 Are you able to get enough f ood for your family? (Household - for ages 0-17 years) Not on file 05/17/2024 Does your family need food t his week? (Household - for ages 0-17 years) Not on file 05/17/2024 Do you always have enough fo od for your family? (Household - for ages 0-17 years) Not on file 05/17/2024 Comments No Sex and Gender Information Value [...] documented in this encounter Progress Notes * Tania Dove, Community Health Yarding Engineer - 05/24/2024 3:47 PM EST Telemedicine visit: No Community Health Yarding Engineer (CARMEN) documentation: [facility] outbound call per Loly MANRIQUEZ Patient is not feeling well having pain cramping on right side , about a 7 feels like a muscle spasm, really bothers her when she gets out of bed Had a bout of colitis in August patient is not sure if the pain could be that Denies falls since she has been home BP patient has not been taking them Blood Sugar has been up in the 200 and 300, she started back on her metformin Denies Falls since she has been home Has no energy Denies Lightheadedness and dizziness Not much of an appetite Has nausea Denies Vomiting Some constipation and at times diarrhea Teams messaged Loly Dao due to the right sided pain Loly suggested for patient to take tylenol or advil Patient is going to take 2 500 mg of Tylenol Educated her that she can not exceed 6 pills per day And to call Loly if she is still having pain tomorrow or if it gets worse go to the emergency room Reviewed Red Flags/ Patient voiced understanding Tania Dove [facility] Community Health Worker Call or Text- [phone] documented in this encounter Plan of Treatment Upcoming Encounters Date Type Department Care Team (Late st Contact Info) Description 05/31/2024 12:15 PM EST Scheduled Telephone Care Coordination and Integration [address] [place] [facility] [place] [address] Tania Dove, Community Health Yarding Engineer [address] [place] [address] 06/07/2024 11:00 AM EST Scheduled Telephone Care Coordination and Integration [address] [place] [place] [address] Tania Dove, Community Health Yarding Engineer [address] [place] [address] 06/13/2024 10:00 AM EST Hem/Onc Treatment Hematology/Oncology Treatment, [place] [address] [place] [id number] Nora, Chair 1 Hem Onc [address] [place] [address] 06/14/2024 9:15 AM EST Scheduled Telephone Care Coordination and Integration [address] [place] [address] Tania Dove, Community Health Yarding Engineer [address] [place] [address] 06/16/2024 8:30 AM EST [facility] [address] [facility] [place] [address] [facility] [address] [facility] [place] [address] 06/27/2024 1:00 PM EST [facility] [address] [facility] [phone] [facility] [address] [place] [address] 06/30/2024 8:00 AM EST Office Visit [facility] [address] [facility] [place] [address] Scott Weldon MD [address] [facility] [place] [address] 06/30/2024 1:20 PM EST Office Visit Hepatology, [facility] [address] [facility] [place] [address] Jazzy Chu DO [address] [place] [address] 07/07/2024 9:30 AM EST Telemedicine Psychiatry [address] [phone] Nhi Fritz CRNP [address] [place] [address] 07/08/2024 10:30 AM EST Telemedicine Gastroenterology, [facility] [address] [facility] [place] [address] Adam Bradshaw CRNP [address] [facility] [place] [address] 09/14/2024 2:00 PM EDT Office Visit Hematology/Oncology Roney Melendez [place] [address] [place] [phone] Sunil Bourgeois MD [address] [place] [address] 12/14/2024 12:20 PM EDT Office Visit [facility] [address] [place] [address] Scott Weldon MD [address] [place] [address] 06/16/2025 11:40 AM EST Office Visit [facility] [address] [place] [address] Scott Weldon MD [address] [place] [address] Scheduled Procedures Name Priority Associated Diagnoses Date/Ti me ESOPHAGOGASTRODUODENOSCOPY ( EGD), FLEXIBLE, TRANSORAL, DIAGNOSTIC Recall Gastric polyps Esophageal varices (HCC) COLONOSCOPY FLEXIBLE PROXIMAL DIAGNOSTIC Recall History of colonic polyps Health Maintenance Due Date Last Done Comments Cologuard 2017 Fecal Occult Blood Test 2017 Sigmoidoscopy 2017 COVID-19 Vaccine ( season) 2024 11/08/2020, 10/11/2020 Diabetic Foot Exam 03/13/2024 03/13/2023, 0 10/03/2021, 11/07/2019, Additional history exists Mammogram 09/01/2024 09/02/2023, 04/10, 01/21/2016 B-12 09/07/2024 09/08/2023, 0 09/2022, 06/14/2020, Additional history exists HbA1c 11/14/2024 05/16/2024, 060 12/2023, 07/23/2023, Additional history exists Diabetic Eye Exam 04/20/2025 04/20/2024, , 03/24/2024, Additional history exists Albumin/Creatinine Ratio 05/16/20252 024, 07/23/2023, 04/06/2023, Additional history exists GFR 05/16/2025 05/16/2024, 100 08/2023, 02/11/2024, Additional history exists Depression Monitoring 05/17/2025 05/17/2024 Pap Smear 09/07/2026 09/08/2023, 11/10/2014, 04/12/2015, Additional history exists DTap/Tdap Vaccines (3 - Td or Tdap) 08/05/2028 08/05/2018, 05/15/2008 Cervical Cancer Screening 09/07/2028 HPV/Co-Test 09/07/2028 09/08/2023 Colonoscopy 10/04/2028 10/05/2023, 09/07, 06/27/2015, Additional history exists Colorectal Cancer Screening 10/04/2028 Lipid Panel 05/16/2029 05/16/2024, 07/09, 03/11/2022, Additional history exists Pneumococcal Vaccine: Pediatrics (0 to 5 Years) and At-Risk Patients (6 to 64 Years) Completed 03/13/2023, 02/19/2018, 03/09/2007 RETIRED - COLONOSCOPY-EVERY 5 YRS AGES 18-100 Discontinued 10/05/2023, 10/05/2023, 06/27/2015, Additional history exists Zoster Vaccines Completed 11/25/2023, 04/19/2023 Influenza Vaccine (FLU shot) Completed 05/12/2024, 03/13/2023, 03/01/2021, Additional history exists HPV (Gardasil) Vaccine Aged Out No lo nger eligible based on patient's age to complete this topic MENINGOCOCCAL (MENACTRA/MENVEO) Aged Out No longer eligible based on patient's age to complete this topic documented as of this encounter Medical Devices Implanted Type Area Scene And Lighting Design Lecturer Device Identifier Shelf Expiration Date Model / Serial / Lot Neurostimul Intellis Adaptiv - [id number] - [id number] Implanted:Qty: 1 on 08/22/2022 by Rafia Small MD at OR [facility] N/A: Spine Lumbar [employer] 06/21/2023 [id number] / [id number] / Description:battery Medtronic Lead Kit 60 Cm Implanted:Qty: 1 on 08/22/2022 by Rafia Small MD at OR [facility] N/A: Spine Lumbar 02/01/2026 [id number] / / [id number] Medtronic Lead Kit 60cm Implanted:Qty: 1 on 08/22/2022 by Rafia Small MD at OR [facility] N/A: Spine Lumbar 03/21/2026 [id number] / / [id number] Envelope Tyrx Med Antibacteril - [id number] Implanted:Qty: 1 on 08/22/2022 by Rafia Small MD at OR [facility] N/A: Spine Lumbar [employer] 03/10/2023 [id number] / / [id number] Hemostatic Clip Res 235cm - [id number] Implanted:Qty: 4 on 10/05/2023 by Aj Pruett DO at ENDOSCOPY [facility] SCIENT[employer] : ENDOSCOPY 02/03/2026 [id number] / / Hemostatic Clip Res 235cm - [id number] Implanted:Qty: 1 on 10/05/2023 by Aj Pruett DO at ENDOSCOPY [facility] SCIENT[employer] : ENDOSCOPY 02/02/2026 [id number] / / documented as of this encounter [...] Power of Attor narda? No Care Teams Quality Process Lead Relationship Specialty Start Date End Date Scott Weldon MD [address] [place] [address] PCP - General Family Medicine 08/03/18 documented as of this encounter
--- OUTSIDE RECORDS SUMMARY | 2024-05-28 10:24 | External Medical Summary | Summary of Care ---
Author Name Unknown Organization [facility] Address [address] [facility] [place] [address] Phone [phone] Care Team Providers Care Filenet Admin Name Role Phone Scott Weldon MD Primary Care Provider + Reason for Visit * Reason Comments Infusion Venofer Encounter Details Date Type Department Care Team (Latest Contact Info) Description 05/16/2024 2:30 PM EST Hem/Onc Treatment Hematology/Oncology Treatment, [address] [phone] Nora, Chair 1 Hem Onc [address] [address] Iron deficiency anemia due to chronic blood loss*; Cirrhosis of liver without ascites, unspecified hepatic cirrhosis type (HCC); Iron deficiency anemia, unspecified iron deficiency anemia type; Type 2 diabetes mellitus with hemoglobin A1c goal of less than 8.0% ([facility]); Stage 3b chronic kidney disease (HCC) Allergies Active Allergy Reactions Criticality Noted Date Comments Naproxen Sodium Bleeding High 11/29/2013 Pollen 12/03/2022 Seasonal Food (See Comments) Anaphylaxis High 04/20/2019 Hot peppers (oils) Kiwi Extract Anaphylaxis High 04/20/2019 documented as of this encounter (statuses as of 05/16/2024) Medications ONETOUCH ULTRASOFT LANCETS MISCIndications:DM type 2, not at goal ([facility]) check FS 6 times daily 4 Box [...] 5 02/18/20 17 Active Insulin Infusion Pump (MINIMLivra Panels 630G INSULIN PUMP) KITIndications:Typ e 2 diabetes [...] suspected opioid overdose. Seek immediate medical attention. [email or web address] 1 Each 3 11/28/19 23 Active Loratadine [...] 4 4:07 PM EST 02/13/20 24 Active Baclofen 10 MG Oral Tablet [...] Active Additional Information Patient not taking.Reported on 05/16/2024 Metoclopramide HCl 5 MG Oral Tablet (Reglan) [...] of breath 20.1 g 03/19/20 24 Active documented as of this encounter (statuses as of 05/16/2024) Active Problems Problem Noted Date Diagnosed Date [...] as of this encounter (statuses as of 05/16/2024) Resolved Problems Problem Noted Date Diagnosed Date [...] (09/03/2009): Per Obesity Taxonomy Coronary atherosclerosis of [place] coronary artery 09/15/2008 10/03/2008 Malaise and fatigue [...] as of this encounter (statuses as of 05/16/2024) Immunizations Name Administration Dates Next Due COVID-19 mRNA, LNP-s, No Pre serve, 2-Dose Series (Prime Advantage) 11/08/2020,10/11/2020 HEP A - Hepatitis A (Adult > 18 yrs) 04/11/2011, 09/20/2010 Hepatitis B, 20+ yrs 07/05/2015 Pneumococcal Conjugate Vacci ne, 20-valent ([id number]) 03/13/2023 Pneumococcal Polysaccharide PPV23 (Pneumovax) 02/19/2018,03/09/2007 Seasonal [...] Sign Reading Time Taken Comments Blood Pressure 125/79 05/16/2024 2:49 PM EST Pulse 85 05/16/2024 2:49 PM EST Temperature 36.5 C (97.7 F) 05/16/2024 2:49 PM ES T Respiratory Rate 16 05/16/2024 2:49 PM EST Oxygen Saturation 92% 05/16/2024 2:49 PM EST Inhaled Oxygen Concentration - - [...] in this encounter Nursing Notes * Kayla Resendez LPN - 05/16/2024 4:28 PM EST 1440: Pt arrived for Venofer infusion. Port accessed by RN. Pt tolerated well. Positive blood return. VSS. Patient instructed on use of heat and massage functions where applicable. Patient shown how to operate the heat function of the chair and to alert nursing staff if the chair feels too warm. Patient instructed on the risk of potential burgess while using the heat function. Pt has no complaints at this time. 1625: Pt tolerated Venofer infusion well. Port de-accessed by RN. Pt tolerated well. To return in 4weeks. Discharged in stable condition. documented in this encounter Plan of Treatment Upcoming Encounters Date Type Department Care Team (Late st Contact Info) Description 05/18/2024 2:40 PM EST Office Visit Family Practice [facility] [address] [place] [phone] Scott Weldon MD [address] [facility] [place] [address] 06/13/2024 10:00 AM EST Hem/Onc Treatment Hematology/Oncology Treatment, [place] [address] [place] [phone] Nora, Chair 1 Hem Onc [place] [address] [place] [address] 06/16/2024 8:30 AM EST Telemedicine Pharmacy, [facility] [address] [place] [address] [facility] [address] [place] [address] 06/27/2024 1:00 PM EST Office [address] [place] [phone] [facility] [address] [facility] [address] 06/30/2024 8:00 AM EST Office Visit [facility] [address] [place] [address] Scott Weldon MD [address] [facility] [place] [address] 06/30/2024 1:20 PM EST Office Visit Hepatology, [facility] [address] [facility] [place] [address] Jazzy Chu DO [address] [place] [address] 07/07/2024 9:30 AM EST Telemedicine Psychiatry [address] [phone] Nhi Fritz CRNP [address] [place] [address] 07/08/2024 10:30 AM EST Telemedicine Gastroenterology, [facility] [address] [facility] [place] [address] Adam Bradshaw CRNP [address] [place] [address] 09/14/2024 2:00 PM EDT Office Visit Hematology/Oncology [place] [address] [place] [phone] Sunil Bourgeois MD [address] [place] [address] 12/14/2024 12:20 PM EDT Office Visit [facility] [address] [place] [address] Scott Weldon MD [address] [place] [address] Pending Results Name Type Priority Associated Diagnoses Date /Time FERRITIN Lab STAT Iron deficiency anemia, unspecified iron deficiency anemia type 05/16/2024 2:33 PM EST IRON SCREEN, INCLUDING TIBC Lab STAT Iron deficiency anemia, unspecified iron deficiency anemia type 05/16/2024 2:33 PM EST HEMOGLOBIN A1C Lab Routine Type 2 diabetes mellitus with hemoglobin A1c goal of less than 8.0% ([facility]) 05/16/2024 2:33 PM EST LIPID PANEL WITH DIRECT LDL IF TG IS HIGH Lab Routine Type 2 diabetes mellitus with hemoglobin A1c goal of less than 8.0% ([facility]) 05/16/2024 2:33 PM EST PTH Lab Routine Stage 3b chronic kidney disease ([facility]) 05/16/2024 2:33 PM EST 25-HYDROXY VITAMIN D Lab Routine Stage 3b chronic kidney disease (HCC) 05/16/2024 2:33 PM EST ALBUMIN / CREATININE RATIO, URINE Lab Routine Type 2 diabetes mellitus with hemoglobin A1c goal of less than 8.0% ([facility]) 05/16/2024 3:57 PM EST PROTEIN/ CREATININE RATIO, URINE Lab Routine Stage 3b chronic kidney disease (HCC) 05/16/2024 3:57 PM EST URINALYSIS WITH MICROSCOPIC EXAM Lab Routine Stage 3b chronic kidney disease (HCC) 05/16/2024 3:57 PM EST Scheduled Procedures Name Priority Associated Diagnoses Date/Ti me ESOPHAGOGASTRODUODENOSCOPY ( EGD), FLEXIBLE, TRANSORAL, DIAGNOSTIC Recall Gastric polyps Esophageal varices (HCC) COLONOSCOPY FLEXIBLE PROXIMAL DIAGNOSTIC Recall History of colonic polyps Health Maintenance Due Date Last Done Comments Cologuard 2017 Fecal Occult Blood Test 2017 Sigmoidoscopy 2017 COVID-19 Vaccine ( season) 2024 11/08/2020, 10/11/2020 Depression Monitoring 03/13/2024 03/13/2023 Diabetic Foot Exam 03/13/2024 03/13/2023, 0 10/03/2021, 11/07/2019, Additional history exists HbA1c 05/14/2024 11/13/2023, 07/09, 02/18/2023, Additional history exists Albumin/Creatinine Ratio 07/23/2024 024, 04/06/2023, 03/11/2022, Additional history exists Mammogram 09/01/2024 09/02/2023, 04/10, 01/21/2016 B-12 09/07/2024 09/08/2023, 09/2022, 06/14/2020, Additional history exists Diabetic Eye Exam 04/20/2025 04/20/2024, , 03/24/2024, Additional history exists GFR 05/16/2025 05/16/2024, 08/2023, 02/11/2024, Additional history exists Pap Smear 09/07/2026 09/08/2023, [...] this encounter Medical Devices Implanted Type Area Strip Tank Tender Device Identifier Shelf Expiration Date Model / Serial / Lot Neurostimul Intellis Adaptiv - [id number] - [id number] Implanted:Qty: 1 on 08/22/2022 by Rafia Small MD at OR [facility] N/A: Spine Lumbar [employer] 06/21/2023 [id number] / [id number] / Description:battery Medtronic Lead Kit 60 Cm Implanted:Qty: 1 on 08/22/2022 by Rafia Small MD at OR [facility] N/A: Spine Lumbar 02/01/2026 [id number] / / [id number] Medtronic Lead Kit 60cm Implanted:Qty: 1 on 08/22/2022 by Rafia Small MD at OR [facility] N/A: Spine Lumbar 03/21/2026 [id number] / / [id number] Envelope Tyrx Med Antibacteril - [id number] Implanted:Qty: 1 on 08/22/2022 by Rafia Small MD at OR [facility] N/A: Spine Lumbar [employer] 03/10/2023 [id number] / / [id number] Hemostatic Clip Res 235cm - [id number] Implanted:Qty: 4 on 10/05/2023 by Aj Pruett DO at ENDOSCOPY [facility] [employer] : ENDOSCOPY 02/03/2026 [id number] / / Hemostatic Clip Res 235cm - [id number] Implanted:Qty: 1 on 10/05/2023 by Aj Pruett DO at ENDOSCOPY [facility] [employer] : ENDOSCOPY 02/02/2026 [id number] / / documented as of this encounter Procedures Procedure Name Priority Date/Time Associated Diagnosis Comments DIFFERENTIAL, AUTOMATED STAT 05/16/2024 2:33 PM EST Iron deficiency anemia, unspecified iron deficiency anemia type RENAL FUNCTION PANEL Routine 05/16/2024 2:33 PM EST Stage 3b chronic kidney disease (HCC) CBC STAT 05/16/2024 2:33 PM EST Iron deficiency anemia, unspecified iron deficiency anemia type CBC STAT 05/16/2024 2:33 PM EST Iron deficiency anemia, unspecified iron deficiency anemia type DIFFERENTIAL, TECHNOLOGIST REVIEW Routine 05/16/2024 2:33 PM EST Iron deficiency anemia, unspecified iron deficiency anemia type MAGNESIUM Routine 05/16/2024 2:33 PM EST Stage 3b chronic kidney disease (HCC) documented in this encounter Results * DIFFERENTIAL, TECHNOLOGIST REVIEW (05/16/2024 2:33 PM EST) nRs 05/16/2024 3:02 PM EST [facility] 56-02 Blood Venous blood specimen / Unknown Venipuncture / Unknown 05/16/2024 2:33 PM EST 05/16/2024 2:47 PM EST Sunil Bourgeois MD LAB BLOOD ORDERABLES Final Res ult [facility] 56-[address] [place] [address] * DIFFERENTIAL, AUTOMATED (05/16/2024 2:33 PM EST) WBC 6.97 4.00 - 10.80 K/uL 05/16/2024 3:02 PM EST [facility] 56-02 Neutrophils % 66.3 40.0 - 75.0 % 05/16/2024 3:02 PM EST [facility] 56-02 Lymphocytes % 20.4 18.0 - 42.0 % 05/16/2024 3:02 PM EST [facility] 56-02 Monocytes % 8.8 1.0 - 11.0 % 05/16/2024 3:02 PM EST [facility] 56-02 Eosinophils % 4.2 0.0 - 6.0 % 05/16/2024 3:02 PM EST [facility] 56-02 Basophils % 0.3 0.0 - 2.0 % 05/16/2024 3:02 PM EST [facility] 56-02 Absolute Neutrophils 4.63 1.80 - 7.70 K/uL 05/16/2024 3:02 PM [facility] 56- Absolute Lymphocytes 1.42 1.00 - 4.80 K/ul 05/16/2024 3:02 PM [facility] 56- Absolute Monocytes 0.61 0.00 - 1.10 K/uL 05/16/2024 3:02 PM [facility] 56- Absolute Eosinophils 0.29 0.00 - 0.70 K/uL 05/16/2024 3:02 PM [facility] 56- Absolute Basophils 0.02 0.00 - 0.20 K/uL 05/16/2024 3:02 PM [facility] 56 Blood Venous blood specimen / Unknown Venipuncture / Unknown 05/16/2024 2:33 PM EST 05/16/2024 2:47 PM EST us Sunil Bourgeois MD LAB BLOOD ORDERABLES Final Res ult [facility] [address] [place] [address] * (ABNORMAL) CBC (05/16/2024 2:33 PM EST) WBC 6.97 4.00 - 10.80 K/uL 05/16/2024 3:02 PM [facility] 56 RBC 4.16 3.85 - 5.15 M/uL 05/16/2024 3:02 PM [facility] 56- HGB 11.3(L) 12.0 - 15.3 g/dL 05/16/2024 3:02 PM [facility] 56- HCT 35.1(L) 36.0 - 45.2 % 05/16/2024 3:02 PM [facility] 56- MCV 84.4 81.5 - 97.5 fL 05/16/2024 3:02 PM [facility] 56 MCH 27.2 27.0 - 34.0 pg 05/16/2024 3:02 PM [facility] 56 MCHC 32.2 32.0 - 36.0 g/dL 05/16/2024 3:02 PM EST [facility] 56 RDW 17.2 11.5 - 15.5 % 05/16/2024 3:02 PM EST [facility] 56 PLT 71(L) 140 - 400 K/uL 05/16/2024 3:02 PM [facility] 56 MPV 9.6 6.6 - 11.1 fL 05/16/2024 3:02 PM EST [facility] 56 Blood Venous blood specimen / Unknown Venipuncture / Unknown 05/16/2024 2:33 PM EST 05/16/2024 2:47 PM EST us Sunil Bourgeois MD LAB BLOOD ORDERABLES Final Res ult [facility] [address] [place] [address] * MAGNESIUM (05/16/2024 2:33 PM EST) Magnesium 1.5 1.5 - 2.6 mg/dL 05/16/2024 3:35 PM [facility] 56 Blood Venous blood specimen / Unknown Venipuncture / Unknown 05/16/2024 2:33 PM EST 05/16/2024 2:47 PM EST us Jonathan Mathew MD LAB BLOOD ORDERABLES Final Res ult [facility] [address] [place] [address] * (ABNORMAL) RENAL FUNCTION PANEL (05/16/2024 2:33 PM EST) BUN 21(H) 6 - 20 mg/dL 05/16/2024 3:35 PM [facility] 56 CREATININE 1.4(H) 0.5 - 1.0 mg/dL 05/16/2024 3:35 PM EST [facility] 56 EGFR 47(L) >=60 mL/min 05/16/2024 3:35 PM [facility] 56 Comment:eGFR is calculated b ased on the CKD-EPI 2020 equation. SODIUM 142 135 - 146 mmol/L 05/16/2024 3:35 PM EST [facility] 56- POTASSIUM 3.9 3.5 - 5.1 mmol/L 05/16/2024 3:35 PM EST [facility] 56- CHLORIDE 104 98 - 107 mmol/L 05/16/2024 3:35 PM EST [facility] 56- CO2 26 22 - 32 mmol/L 05/16/2024 3:35 PM EST [facility] 56- ANION GAP 12 7 - 15 mmol/L 05/16/2024 3:35 PM EST [facility] 56- GLUCOSE 92 70 - 120 mg/dL 05/16/2024 3:35 PM EST [facility] 56- CALCIUM 9.0 8.4 - 10.2 mg/dL 05/16/2024 3:35 PM [facility] 56- Albumin 3.9 3.8 - 5.0 g/dL 05/16/2024 3:35 PM [facility] 56- Phosphorus 3.5 2.5 - 4.8 mg/dL 05/16/2024 3:35 PM [facility] 56- Blood Venous blood specimen / Unknown Venipuncture / Unknown 05/16/2024 2:33 PM EST 05/16/2024 2:47 PM EST us Jonathan Mathew MD LAB BLOOD ORDERABLES Final Res ult [facility] 56- [address] [place] [address] documented in this encounter Visit Diagnoses Diagnosis Iron deficiency anemia due to chronic blood loss- Primary Iron deficiency anemia secondary to blood loss (chronic) Cirrhosis of liver without ascites, unspecified hepatic cirrhosis type (HCC) Iron deficiency anemia, unspecified iron deficiency anemia type Type 2 diabetes mellitus with hemoglobin A1c goal of less than 8.0% (HCC) Stage 3b chronic kidney disease (HCC) documented in this encounter Administered Medications Active Administered Medications - up to 3 most recent administrations Medication Order MAR Action Action Date Dose Rate Site diphenhydrAMINE (Benadryl) inj 50 mg 50 mg, IV Push, ONCE PRN Other, Hypersensitivity Reaction, Starting on Thu05/16/24 at 1427, Until Thu05/17/24 at 1426, For 24 hoursIndications:Iron deficiency anemia due to chronic blood loss,Cirrhosis of liver without ascites, unspecified hepatic cirrhosis type (HCC) EPINEPHrine 1 MG/ML inj 0.3 mg 0.3 mg, Intramuscular, ONCE PRN Other, Hypersensitivity Reaction or Anaphylaxis, Starting on Thu05/16/24 at 1427, Until Thu05/17/24 at 1426, For 24 hoursIndications:Iron deficiency anemia due to chronic blood loss,Cirrhosis of liver without ascites, unspecified hepatic cirrhosis type (HCC) hEParin 100 UNIT/ML Lock Flush inj 500 Units 500 Units (5 mL), IV Lock, PRN Other, IV Flush, Starting on Thu05/16/24 at 1427, Until Thu05/17/24 at 1426, For 24 hours, Do not flush if lock, PICC, or central line not in place; IV infusing or unable to flush.Indications:Iron deficiency anemia due to chronic blood loss,Cirrhosis of liver without ascites, unspecified hepatic cirrhosis type (HCC) Given 05/16/2024 4:23 PM EST 500 Units Hydrocortisone Sod Suc (PF) (Solu-Cortef) inj 100 mg 100 mg, IV Push, ONCE PRN Other, Hypersensitivity Reaction, Starting on Thu05/16/24 at 1427, Until Thu05/17/24 at 1426, For 24 hoursIndications:Iron deficiency anemia due to chronic blood loss,Cirrhosis of liver without ascites, unspecified hepatic cirrhosis type (HCC) NSS infusion 500 mL, Intravenous, at 50 mL/hr, CONTINUOUS, Starting on Thu05/16/24 at 1530, Until Thu05/17/24 at 0[address]Indications:Iron deficiency anemia due to chronic blood loss,Cirrhosis of liver without ascites, unspecified hepatic cirrhosis type (HCC) Start Infusion 05/16/2024 2:42 PM EST 500 mL 50 mL/hr oxygen GAS Inhalation, OXYGEN, First dose on Thu05/16/24 at 1600, Until Discontinued, Device/Managed by: Low [...] Push, PRN Other, IV Flush, Starting on Thu05/16/24 at 1427, Until Thu05/17/24 at 1426, For 24 hours, Do not flush if lock, PICC, or central line not in place; IV infusing or unable to flush.Indications:Iron deficiency anemia due to chronic blood loss,Cirrhosis of liver without ascites, unspecified hepatic cirrhosis type (HCC) Given 05/16/2024 4:23 PM EST 10 mL Inactive Administered Medications - up to 3 most recent administrations Medication Order MAR Action Action Date Dose Rate Site Iron Sucrose (Venofer) 300 mg in NSS 250 mL ivpb 300 mg, IV Piggyback, ONCE, 1 dose, On Thu05/16/24 at 1600, Administer over 90 MinutesIndications:Iron deficiency anemia due to chronic blood loss,Cirrhosis of liver without ascites, unspecified hepatic cirrhosis type (HCC) Start Infusion 05/16/2024 2:51 PM EST 300 mg 180 mL/hr documented in [...] Power of Attor narda? No Care Teams Filenet Admin Relationship Specialty Start Date End Date Scott Weldon MD [address] [place] [address] PCP - General Family Medicine 08/03/18 documented as of this encounter
--- OUTSIDE RECORDS SUMMARY | 2024-05-28 10:24 | External Medical Summary ---
Author Name Unknown Address Unknown Organization [id number]:LABORATORY [facility] - [facility] [place] [address] Laboratory Report Ordering Provider Test Date Status LISA MARIE 05/16/2024 15:57:00 Final Normal: <150 mg/ g creatinine
High: 150-500 mg/g creatinine
Very High: >500 mg/g creatinine
Nephrotic: >3000 mg/g creatinine Observation Date Value Abnormality Reference (Units ) Status Protein/Creatinine [Ratio] in Urine 05/16/2024 15:57:00 <316 Above high normal <150 (mg/g ) Final Protein, Urine 05/16/2024 15:57:00 <6 (mg/dL) Final Creatinine, Urine 05/16/2024 15:57:00 19 (mg/dL) Final Performing Location LABORATORY [facility] - [facility] [place] [address]
--- OUTSIDE RECORDS SUMMARY | 2024-05-28 10:24 | External Medical Summary ---
Author Name Unknown Address Unknown Organization [id number]:LABORATORY C - [address] [facility] [place] [place] [address] Laboratory Report Ordering Provider Test Date Status LISA MARIE 05/16/2024 15:57:00 Final Observation Date Value Abnormality Reference (Units ) Status Color of Urine by Auto 05/16/2024 15:57:00 Colorless Colorless, Light Yellow, Yellow, Dark Yellow Final Clarity, Urine 05/16/2024 15:57:00 Clear Clear Final Glucose [Mass/volume] in Urine by Automated test strip 05/16/2024 15:57:00 Negative Negative (mg/dL) Final Bilirubin.total [Presence] in Urine by Automated test strip 05/16/2024 15:57:00 Negative Negative Final Ketones [Mass/volume] in Urine by Automated test strip 05/16/2024 15:57:00 Negative Negative (mg/dL) Final Specific gravity, Urine 05/16/2024 15:57:00 1.009 1.003-1.030 Final Hemoglobin [Presence] in Urine by Automated test strip 05/16/2024 15:57:00 Negative Negative Final pH, Urine 05/16/2024 15:57:00 6.0 5.0-7.5 (Units) Final Protein [Mass/volume] in Urine by Automated test strip 05/16/2024 15:57:00 Negative Negative (mg/dL) Final Urobilinogen [Mass/volume] in Urine by Automated test strip 05/16/2024 15:57:00 Normal Normal (mg/dL) Final Nitrite [Presence] in Urine by Automated test strip 05/16/2024 15:57:00 Negative Negative Final Leukocyte esterase [Presence] in Urine by Automated test strip 05/16/2024 15:57:00 Negative Negative Final RBC, Urine 05/16/2024 15:57:00 0-2 0-2 (/HPF) Final WBC, Urine 05/16/2024 15:57:00 0-2 0-2 (/HPF) Final Bacteria [#/area] in Urine sediment by Microscopy high power field 05/16/2024 15:57:00 0-25 0-25 (/HPF) Final Performing Location LABORATORY [facility] - [facility] [address] [facility] [place] [address]
--- OUTSIDE RECORDS SUMMARY | 2024-05-28 10:24 | External Medical Summary | Summary of Care ---
Author Name Unknown Organization [facility] Address [address] [facility] [place] [address] Phone [phone] Care Team Providers Care Supervisor Blasting Name Role Phone Scott Montoya MD Primary Care Provider + Reason for Visit * Reason Comments Medication Refill Encounter Details Date Type Department Care Team (Late st Contact Info) Description 05/15/2024 Refill Family Practice [facility] [address] [place] [address] Scott Montoya MD 132 [facility] [place] [address] Back spasm Allergies Active Allergy Reactions Criticality Noted Date Comments Naproxen Sodium Bleeding High 11/29/2013 Pollen 12/03/2022 Seasonal Food (See Comments) Anaphylaxis High 04/20/2019 Hot peppers (oils) Kiwi Extract Anaphylaxis High 04/20/2019 documented as of this encounter (statuses as of 05/16/2024) Medications ONETOUCH ULTRASOFT LANCETS MISCIndications:D M type [...] 5 02/18/20 17 Active Insulin Infusion Pump (MINIMJobool 630G INSULIN PUMP) KITIndications:Ty pe 2 diabetes [...] suspected opioid overdose. Seek immediate medical attention. [email or web address] 1 Each 3 11/28/19 23 Active Loratadine [...] of less than 8.0% ([facility]),DM type 2, not at goal ([facility]) INJECT UP TO 200 UNITS SUBCUTANEOSULY [...] 1 Tablet before bedtime. 90 Tablet 2 05/16/20 24 Active metFORMIN HCl 1000 MG Oral Tablet (Glucophage)Indic ations:Type 2 diabetes mellitus with hemoglobin A1c goal of less than 8.0% ([facility]) Take 1 Tablet by mouth daily with breakfast. 90 Tablet 3 4 11:28 AM EST 02/14/20 24 024 Disconti nued(End of Procedur e) Baclofen 10 MG Oral Tablet (Lioresal)Indicat ions:Back spasm Take 1 Tablet by mouth in the morning and 1 Tablet at noon and 1 Tablet before bedtime. 90 Tablet 2 4 4:50 PM EDT 02/18/20 24 024 Disconti nued(Ref ill) documented as [...] (09/03/2009): Per Obesity Taxonomy Coronary atherosclerosis of [place] coronary artery 09/15/2008 10/03/2008 Malaise and fatigue [...] mRNA, LNP-s, No Pre serve, 2-Dose Series (Camero) 11/08/2020,10/11/2020 HEP A - Hepatitis A (Adult > 18 yrs) 04/11/2011, 09/20/2010 Hepatitis B, 20+ yrs 07/05/2015 Pneumococcal Conjugate Vacci ne, 20-valent ([id number]) 03/13/2023 Pneumococcal Polysaccharide PPV23 (Pneumovax) 02/19/2018,03/09/2007 Seasonal [...] Telephone Encounter - Scott Montoya MD - 05/16/2024 10:43 PM EST Signed Prescriptions: Disp Refills Baclofen 10 MG Oral Tablet (Lioresal) 90 Tab*2 Sig: Take 1 Tablet by mouth in the morning and 1 Tablet at noon and 1 Tablet before bedtime. Authorizing Provider: SCOTT MONTOYA * Telephone Encounter - Loly Dugan LPN - 05/16/2024 8:23 AM ESTPending Prescriptions: Disp Refills Baclofen 10 MG Oral Tablet (Lioresal) 90 Tab*2 Sig: Take 1 Tablet by mouth in the morning and 1 Tablet at noon and 1 Tablet before bedtime. * Telephone Encounter - Angel Turner - 05/15/2024 5:39 AM ESTPending Prescriptions: Disp Refills Baclofen 10 MG Oral Tablet (Lioresal) 90 Tab*2 Sig: Take 1 Tablet by mouth in the morning and 1 Tablet at noon and 1 Tablet before bedtime. documented in this encounter Plan of Treatment Upcoming Encounters Date Type Department Care Team (Late st Contact Info) Description 05/18/2024 2:40 PM EST Office Visit Family [facility] [address] [place] [address] Scott Montoya MD [address] [place] [address] 06/13/2024 10:00 AM EST Hem/Onc Treatment Hematology/Oncology Treatment, [place] [address] [place] [address] Nora, Chair 1 Hem Onc Scenery [address] [place] [address] 06/16/2024 8:30 AM EST Telemedicine Pharmacy, [facility] [address] [facility] [place] [address] [facility] [place] [address] 06/27/2024 1:00 PM EST Office Visit Pharmacy, [address] [place] [phone] [address] [address] 06/30/2024 8:00 AM EST Office Visit [facility] [address] [place] [address] Scott Montoya MD [address] [place] [address] 06/30/2024 1:20 PM EST Office Visit Hepatology, [facility] [address] [place] [address] Jazzy Chu DO [address] [place] [address] 07/07/2024 9:30 AM EST Telemedicine Psychiatry [facility] [address] [place] [phone] Nhi Fritz CRNP [address] [place] [address] 07/08/2024 10:30 AM EST Telemedicine Gastroenterology, [facility] [place] [address] Adam Bradshaw CRNP [address] [facility] [address] 09/14/2024 2:00 PM EDT Office Visit Hematology/Oncology [facility] [address] [place] [phone] Sunil Bourgeois MD 200 [place] [address] 12/14/2024 12:20 PM EDT Office Visit Family Practice [facility] 132 [facility] [place] [address] Scott Montoya MD 132 [place] [address] Scheduled Procedures Name Priority Associated Diagnoses Date/Ti [...] encounter Medical Devices Implanted Type Area Cloth Handler Device Identifier Shelf Expiration Date Model / Serial / Lot Neurostimul Intellis Adaptiv - [id number] - [id number] Implanted:Qty: 1 on 08/22/2022 by Rafia Small MD at OR [facility] N/A: Spine Lumbar [employer] 06/21/2023 [id number] / [id number] / Description:battery Medtronic Lead Kit 60 Cm Implanted:Qty: 1 on 08/22/2022 by Rafia Small MD at OR [facility] N/A: Spine Lumbar 02/01/2026 [id number] / / [id number] Medtronic Lead Kit 60cm Implanted:Qty: 1 on 08/22/2022 by Rafia Small MD at OR [facility] N/A: Spine Lumbar 03/21/2026 [id number] / / [id number] Envelope Tyrx Med Antibacteril - [id number] Implanted:Qty: 1 on 08/22/2022 by Rafia Small MD at OR [facility] N/A: Spine Lumbar [employer] 03/10/2023 [id number] / / [id number] Hemostatic Clip Res 235cm - [id number] Implanted:Qty: 4 on 10/05/2023 by Aj Pruett DO at [facility] 02/03/2026 [id number] / / Hemostatic Clip Res 235cm - [id number] Implanted:Qty: 1 on 10/05/2023 by Aj Pruett DO at [facility] END[facility]COPY 02/02/2026 [id number] / / documented as of this encounter Visit Diagnoses Diagnosis Back spasm Other symptoms referable to back documented in this encounter Advance Directives * [...] Power of Attor narda? No Care Teams Supervisor Blasting Relationship Specialty Start Date End Date Scott Montoya MD [address] [place] [address] PCP - General Family Medicine 08/03/18 documented as of this encounter
--- OUTSIDE RECORDS SUMMARY | 2024-05-28 10:24 | External Medical Summary | Summary of Care ---
Author Name Unknown Organization [facility] Address [address] [place] [address] Phone [phone] Care Team Providers Care Spinner Cap Frame Name Role Phone Scott Weldon MD Primary Care Provider + Reason for Visit * Reason Comments Dosage Adjustment In Person (Anticoag Cl inic) Insulin Pump Diabetes Follow-Up Encounter Details Date Type Department Care Team (Late st Contact Info) Description 05/16/2024 1:00 PM EST [facility] [address] [facility] [place] [address] [facility] [address] [place] [address] Type 2 diabetes mellitus with hemoglobin A1c goal of less than 8.0% ([facility])* Allergies Active Allergy Reactions Criticality Noted Date Comments Naproxen Sodium Bleeding High 11/29/2013 Pollen 12/03/2022 Seasonal Food (See Comments) Anaphylaxis High 04/20/2019 Hot peppers (oils) Kiwi Extract Anaphylaxis High 04/20/2019 documented as of this encounter (statuses as of 05/16/2024) Medications ONETOUCH ULTRASOFT LANCETS MISCIndications:D M type 2, not at goal ([facility]) check FS 6 times daily [...] 5 02/18/20 17 Active Insulin Infusion Pump (MINIMAdvanced Oncotherapy 630G INSULIN PUMP) KITIndications:Ty pe 2 diabetes mellitus with hemoglobin A1c goal of less than 8.0% ([facility]) Use as directed. 07/30/19 18 Active CPAP [...] suspected opioid overdose. Seek immediate medical attention. [email or web address] 1 Each 3 11/28/19 23 Active Loratadine [...] of breath 20.1 g 03/19/20 24 Active Ozempic (2 MG/DOSE) 8 MG/3ML Subcutaneous Solution Pen-injector (Semaglutide (2 MG/DOSE)) Inject under the skin. Obtaining from [employer]oNoTrendrating PAP Active metFORMIN HCl 1000 MG Oral Tablet (Glucophage)Indic ations:Type 2 diabetes mellitus with hemoglobin A1c goal of less than 8.0% ([facility]) Take 1 Tablet by mouth daily with breakfast. 90 Tablet 3 4 11:28 AM EST 02/14/20 24 024 Discjonei jodi(End of Procedur e) documented as of this encounter (statuses as [...] (09/03/2009): Per Obesity Taxonomy Coronary atherosclerosis of [place] coronary artery 09/15/2008 10/03/2008 Malaise and [...] mRNA, LNP-s, No Pre serve, 2-Dose Series (Quintic) 11/08/2020,10/11/2020 HEP A - Hepatitis A (Adult > 18 yrs) 04/11/2011, 09/20/2010 Hepatitis B, 20+ yrs 07/05/2015 Pneumococcal Conjugate Vacci ne, 20-valent (Pdggyah96) 03/13/2023 Pneumococcal Polysaccharide PPV23 (Pneumovax) 02/19/2018,03/09/2007 Seasonal [...] Teresa Moore LPN documented in this encounter Progress Notes * Danielle Anderson, [facility] - 05/16/2024 1:01 PM EST Medication Therapy Disease Management Clinic - Diabetes Management Progress Note Carmen Tyson, identified by name and date of , is a 53 year old female being seen for diabetes management/education. Patient presents for return diabetic visit. DIABETES: Current diabetic medications: Metformin 1000mg once a day Jardiance 10 mg once daily - Applying for coverage; waiting for new year eGFR 21.9 mL/min as of 05/10/24 at [facility] Ozempic 2 mg once weekly pt still taking despite PCP advising she stop MedArdica [employer] ([id number]) Infusion Set: Quick Set Insulin: Novolin R Basal Rate (decreased) 12a-8a 2.0 u/hr 8a-1pm 3.6 u/hr 1pm - 3 pm 3.5 u/hr 3p - 12a 3.6 u/hr Bolus: using bolus wizard Carb ratio 1:4 Bolus wizard: on and using ISF: 1:10 Blood Glucose Goals: 100-140 Active Insulin Time: 4 hours Medication Injection Site: Abdomen Lifestyle: Diet: unchanged Glucose Review/SMBG: Readings obtained from patient device Hypoglycemia: Does your blood sugar go below 70 mg/dL? Yes, had an occurrence while at the ER for an unrelated issue last week Hyperglycemia symptoms present: none Recent Labs Units 11/13/23 1007 07/23/23 1200 02/18/23 1326 HEMOGLOBIN A1C - [facility] % 6.3* 5.8* 5.7* Recent Labs Units 03/10/24 1408 02/11/24 1119 02/03/24 0000 ESTIMATED GLOMERULAR FILTRATION RATE - [facility] mL/min 51* 38* 41.2 CREATININE - [facility] mg/dL 1.3* 1.6* 1.45* HYPERTENSION: Patient on ACEi/ARB: no, not taking, BP low BP Readings from Last 3 Encounters: 05/16/24 125/79 05/10/24 85/58 04/15/24 108/73 Blood pressure at goal: yes HYPERLIPIDEMIA: Recent Labs Units 07/23/23 1200 LDL CHOLESTEROL (CALCULATED) - [facility] mg/dL 54 Does patient have clinical ASCVD? Yes, is patient LDL less than 55 mg/dL? Yes HEALTH MAINTENANCE REVIEW: Health Maintenance Due Topic Date Due COVID-19 Vaccine () 02/07/2024 Diabetic Foot Exam 03/13/2024 Depression Monitoring 03/13/2024 HbA1c 05/14/2024 Albumin/Creatinine Ratio 07/23/2024 ASSESSMENT & PLAN: ICD-10-CM 1. Type 2 diabetes mellitus with hemoglobin A1c goal of less than 8.0% ([facility]) E11.9 Considerations: - activity limited by chronic low back pain - obtaining ozempic and novolin R via PAP - prefers to use local pharmacy instead of [facility] - RENAL function - Dexcom supplied by [facility] Medical BG Readings - Blood sugars controlled. No changes recommended at this time. She brought a letter from [employer] about not being able to fulfill her re-enrollment. I scanned this to [employer] to see if they are able to assist. Patient reports to me today that she never stopped taking the ozempic as was instructed by her PCP due to elevated lipase levels. May be a candidate for OP5 in the future-- her pump is out of warranty with medtronic in January. Will discontinue metformin today due to renal function. Pt reports that dr. Mathew advised she is okay to resume jardiance, but she currently is unable toafford it as she is in the donut hole. Patient is agreeable to SMBG with dexcom g7 daily. Patient aware to contact clinic if any hypoglycemia before next visit. MEDICATION CHANGES: yes, see below; preferred pharmacy: local Diabetic Medications: STOP Metformin 1000mg once a day NOT CURRENTLY TAKING DUE TO $$ Jardiance 10 mg once daily - waiting for new year eGFR 21.9 mL/min as of 05/10/24 at [facility] Ozempic 2 mg once weekly pt still taking despite PCP advising she stop Medtronic 630G - [employer] ([id number]) Infusion Set: Quick Set Insulin: Novolin R Basal Rate 12a-8a 2.0 u/hr 8a-1pm 3.6 u/hr 1pm - 3 pm 3.5 u/hr 3p - 12a 3.6 u/hr Bolus: using bolus wizard Carb ratio 1:4 Bolus wizard: on and using ISF: 1:10 Blood Glucose Goals: 100-140 Active Insulin Time: 4 hours HEALTH MAINTENANCE INTERVENTIONS: Labs: Up to Date Immunizations: Up to Date Foot Exam: Up to Date Eye Exam: Up to Date Annual Wellness Visit: N/A FOLLOW UP: Return to clinic in 6 weeks 06/27/2024 I spent a total of 30-39 minutes (exact time 36 mins) on the date of service in preparation, delivery, and documentation of the care provided to Carmen Tyson excluding any time spent in the performance of separately billed services. Danielle Anderson [facility] Clinical Pharmacist - Ultrasound Applications Specialist Medication Therapy Management Clinic 05/16/2024, 1:01 PM documented in this encounter Plan of Treatment Upcoming Encounters Date Type Department Care Team (Late st Contact Info) Description 05/18/2024 2:40 PM EST Office Visit Family Practice [facility] [address] [place] [address] Scott Weldon MD [address] [facility] [place] [address] 06/13/2024 10:00 AM EST Hem/Onc Treatment Hematology/[facility] [place] [facility] [phone] Nora, Chair 1 Hem Onc Scene [address] [facility] [address] 06/16/2024 8:30 AM EST Telemedicine Pharmacy, [facility] [address] [place] [address] [facility] [address] [facility] [place] [address] 06/27/2024 1:00 PM EST [facility] [phone] [place], [address] [address] 06/30/2024 8:00 AM EST Office Visit [facility] [address] [place] [address] Scott Weldon MD [address] [facility] [place] [address] 06/30/2024 1:20 PM EST Office Visit Hepatology, [facility] [address] [place] [address] Jazzy Chu DO [address] [place] [address] 07/07/2024 9:30 AM EST Telemedicine Psychiatry [address] [phone] Nhi Fritz CRNP [address] [place] [address] 07/08/2024 10:30 AM EST Telemedicine Gastroenterology, [facility] [address] [place] [address] Adam Bradshaw CRNP [address] [place] [address] 09/14/2024 2:00 PM EDT Office Visit Hematology/Oncology [facility] [address] [facility] [place] [address] Sunil Bourgeois MD [address] [place] [address] 12/14/2024 12:20 PM EDT Office Visit [facility] [address] [facility] [place] [address] Scott Weldon MD [address] [facility] [place] [address] Scheduled Procedures Name Priority Associated Diagnoses Date/Ti [...] 09/2022, 06/14/2020, Additional history exists GFR 03/10/2025 05/16/2024, 08/2023, 02/11/2024, Additional history exists Diabetic Eye Exam 04/20/2025 [...] this encounter Medical Devices Implanted Type Area Data Support Specialist Device Identifier Shelf Expiration Date Model / Serial / Lot Neurostimul Intellis Adaptiv - [id number] - [id number] Implanted:Qty: 1 on 08/22/2022 by Rafia Small MD at OR [facility] N/A: Spine Lumbar [employer] 06/21/2023 [id number] / [id number] / Description:battery Medtronic Lead Kit 60 Cm Implanted:Qty: 1 on 08/22/2022 by Rafia Small MD at OR [facility] N/A: Spine Lumbar 02/01/2026 [id number] / / [id number] Medtronic Lead Kit 60cm Implanted:Qty: 1 on 08/22/2022 by Rafia Small MD at OR [facility] N/A: Spine Lumbar 03/21/2026 [id number] / / [id number] Envelope Tyrx Med Antibacteril - [id number] Implanted:Qty: 1 on 08/22/2022 by Rafia Small MD at OR [facility] N/A: Spine Lumbar [employer] 03/10/2023 [id number] / / [id number] Hemostatic Clip Res 235cm - [id number] Implanted:Qty: 4 on 10/05/2023 by Aj Pruett, DO at [facility] : ENDOSCOPY 02/03/2026 [id number] / / Hemostatic Clip Res 235cm - [id number] Implanted:Qty: 1 on 10/05/2023 by Aj Pruett, DO at [facility] : ENDOSCOPY 02/02/2026 [id number] / / documented as of this encounter [...] Power of Attor narda? No Care Teams Spinner Cap Frame Relationship Specialty Start Date End Date Scott Weldon MD [address] [place] [address] PCP - General Family Medicine 08/03/18 documented as of this encounter
--- OUTSIDE RECORDS SUMMARY | 2024-05-28 10:24 | External Medical Summary ---
Author Name Unknown Address Unknown Organization K01:[facility] [address] [place] [address] Laboratory Report Ordering Provider Test Date Status AJN RIBEIRO 05/16/2024 15:57:00 Final Normal: <30 mg/g creatinine< br/>High: 30-300 mg/g creatinine
Very High: >300 mg/g creatinine
Nephrotic: >2200 mg/g creatinine Observation Date Value Abnormality Reference (Units) Status Albumin, Urine 05/16/2024 15:57:00 <1.20 (mg/dL) Final Creatinine, Urine 05/16/2024 15:57:00 18 (mg/dL) Final ALBUMIN/CREATININE RATIO, HIDE 05/16/2024 15:57:00 Uninterpretable Albumin/Creatinine ratio due to very low albumin and creatinine values. <30 (mg/g Creat) Final Performing Location [facility] [place] [address]
--- OUTSIDE RECORDS SUMMARY | 2024-05-28 10:24 | External Medical Summary ---
Author Name Unknown Address Unknown Organization K09:[facility] [place] [address] Laboratory Report Ordering Provider Test Date Status LUIS ANTONIO LEIVA 05/16/2024 14:33:10 Final Observation Date Value Abnormality Reference (Units ) Status Nucleated erythrocytes/100 leukocytes [Ratio] in Blood by Automated count 05/16/2024 14:33:10 Final Performing Location [facility] [place] [address]
--- OUTSIDE RECORDS SUMMARY | 2024-05-28 10:24 | External Medical Summary | Summary of Care ---
Author Name Unknown Organization [facility] Address [address] [facility] [place] [address] Phone [phone] Care Team Providers Care Group Captain Name Role Phone Scott Weldon MD Primary Care Provider + Reason for Visit * Reason Comments IV Therapy Venofer Encounter Details Date Type Department Care Team (Late st Contact Info) Description 04/15/2024 11:00 AM EST Nurse Only Hematology/Oncology Treatment, [address] [address] [place], Chair 3 Hem Onc [address] [id number] IV Therapy (Venofer) Allergies Active Allergy Reactions Criticality Noted Date Comments Naproxen Sodium Bleeding High 11/29/2013 Pollen 12/03/2022 Seasonal Food (See Comments) Anaphylaxis High 04/20/2019 Hot peppers (oils) Kiwi Extract Anaphylaxis High 04/20/2019 documented as of this encounter (statuses as of 05/17/2024) Medications ONETOUCH ULTRASOFT LANCETS MISCIndications: DM type 2, not at goal (HCC) check FS 6 times daily 4 Box 5 06/22/ 015 Active insulin glargine (LANTUS SOLOSTAR) 100 [...] Insulin Infusion Pump (MINIMED 630G INSULIN PUMP) KITIndications:T ype 2 diabetes mellitus with hemoglobin A1c goal of less than 8.0% ([facility]) Use as directed. 018 Active CPAP every night at bedtime. Active Glucagon Emergency 1 MG Injection Kit As directed 1 Kit 3 023 Active Dicyclomine HCl 20 MG Oral Tablet (Bentyl) Take 1 Tablet by mouth 2 times a day as needed for Pain or Cramping. 180 Tablet 3 023 Active Naloxone HCl 4 MG/0.1ML Nasal Liquid (Narcan Nasal)Indication s:Controlled substance agreement signed,Chronic pain syndrome Administer 1 spray into 1 nostril for suspected opioid overdose. Seek immediate medical attention. [email or web address] 1 Each 3 023 Active Loratadine 10 MG Oral Tablet (Claritin)Indica tions:Allergic rhinitis TAKE 1 TABLET BY MOUTH IN THE MORNING FOR ALLERGIES. 90 Tablet 1 023 Active Additional Information Patient taking differently:10 mg Oral Daily(AM), For allergies.,Indications: as needed, Reported on 10/01/2023 NovoLIN R ReliOn 100 UNIT/ML Injection Solution (insulin REGULAR human)Indication s:Type 2 diabetes mellitus with hemoglobin A1c goal of less than 8.0% ([facility]),DM type 2, not at goal (HCC) INJECT UP TO 200 UNITS SUBCUTANEOSULY ONCE DAILY VIA PUMP 60 mL 023 Active Ondansetron 8 MG Oral Tablet Disintegrating (Zofran) PLACE 1 TABLET ON TONGUE AND DISSOLVE EVERY 8 HOURS NEEDED FOR NAUSEA 30 Tablet 024 Active Meclizine HCl 25 MG Oral Tablet (Antivert)Indica tions:Vertigo Take 1 Tablet by mouth 3 times [...] Supplement 400 (240 Mg) MG Oral Tablet (Mag-Ox)Indicati ons:Hypomagnesem ia Take 1 Tablet by mouth in the morning. 90 Tablet 3 04/07/20 24 6:26 PM EDT 024 Active Atorvastatin Calcium 40 MG Oral Tablet (Lipitor)Indicat ions:Dyslipidemi a, goal LDL below 100 Take 1 Tablet by mouth at bedtime. 90 Tablet 3 02/27/20 24 1:51 PM EDT 024 Active Pantoprazole Sodium 40 MG Oral Tablet Delayed Release (Protonix)Indica tions:Esophageal varices without bleeding, unspecified esophageal varices type (HCC),Colitis Take 1 Tablet by mouth in the morning. 90 Tablet 3 05/07/20 24 9:54 AM EST 024 Active Pregabalin 100 MG Oral Capsule (Lyrica)Indicati ons:Bilateral low back pain with sciatica, sciatica laterality unspecified, unspecified chronicity Take 1 Capsule by mouth in the morning and 1 Capsule at noon and 1 Capsule before bedtime. 300 Capsule 1 04/25/20 24 4:07 PM EST 024 Active Furosemide 40 MG Oral Tablet (Lasix) Take 1 Tablet by mouth every other day. 50 Tablet 1 05/14/20 24 8:54 AM EST 024 Active Empagliflozin 10 MG Oral Tablet (Jardiance)Indic ations:Type 2 diabetes mellitus with hemoglobin A1c goal of less than 8.0% (HCC) Take 1 Tablet by mouth in the morning. 90 Tablet 3 024 Active Additional Information Patient not taking.Reported on 03/22/2024 Metoclopramide HCl 5 MG Oral Tablet (Reglan) Take 1 Tablet by mouth in the morning and 1 Tablet at noon and 1 Tablet in the evening. Take before meals. If needed for nausea. 300 Tablet 1 02/27/20 24 1:51 PM EDT 024 Active metFORMIN HCl 1000 MG Oral Tablet (Glucophage)Darlyn cations:Type 2 diabetes mellitus with hemoglobin A1c goal of less than 8.0% (HCC) Take 1 Tablet by mouth daily with breakfast. 90 Tablet 3 05/11/20 24 11:28 AM EST 2023 Discontinued(E nd of Procedure) Baclofen 10 MG Oral Tablet (Lioresal)Indica tions:Back spasm Take 1 Tablet by mouth in the morning and 1 Tablet at noon and 1 Tablet before bedtime. 90 Tablet 2 02/23/20 24 4:50 PM EDT 024 2023 Discontinued(R efill) Albuterol Sulfate HFA 108 (90 Base) MCG/ACT Inhalation Aerosol Solution Inhale 2 Puffs by mouth every 6 hours as needed for Shortness of Breath. 18 g 5 03/22/20 24 7:18 AM EDT 024 2023 Discontinued Buprenorphine 5 MCG/HR Transdermal Patch Weekly (Butrans)Indicat ions:Controlled substance agreement signed,Chronic bilateral low back pain with sciatica, sciatica laterality unspecified,Machine I Cutter sada pain syndrome Place 1 Patch topically on the skin once a week. 4 Patch 024 2023 Discontinued(R efill) documented as of this encounter (statuses as of 05/17/2024) Active Problems Problem Noted Date Diagnosed Date [...] as of this encounter (statuses as of 05/17/2024) Resolved Problems Problem Noted Date Diagnosed Date [...] (09/03/2009): Per Obesity Taxonomy Coronary atherosclerosis of [place] coronary artery 09/15/2008 10/03/2008 Malaise and fatigue [...] as of this encounter (statuses as of 05/17/2024) Immunizations Name Administration Dates Next Due COVID-19 mRNA, LNP-s, No Pre serve, 2-Dose Series (Archivas) 11/08/2020,10/11/2020 HEP A - Hepatitis A (Adult > 18 yrs) 04/11/2011, 09/20/2010 Hepatitis B, 20+ yrs 07/05/2015 Pneumococcal Conjugate Vacci ne, 20-valent ([id number]) 03/13/2023 Pneumococcal Polysaccharide PPV23 (Pneumovax) 02/19/2018,03/09/2007 Seasonal [...] in this encounter Nursing Notes * Valorie Toro, BENITA - 04/15/2024 2:45 PM EST Patient tolerated [...] 2:40 PM EST Office Visit Family Practice [facility] [address] [place] [phone] Scott Weldon MD [address] [facility] [place] [address] 06/13/2024 10:00 AM EST Hem/Onc Treatment Hematology/Oncology Treatment, [place] [address] [place] [phone] [place], Chair 1 Hem Onc Sc[place] [address] [place] [address] 06/16/2024 8:30 AM EST Telemedicine Pharmacy, [facility] [address] [place] [address] [facility] [address] [place] [address] 06/27/2024 1:00 PM EST [facility] [address] [facility] [phone] [facility] [address] [facility] [address] 06/30/2024 8:00 AM EST Office Visit Family Practice [facility] [address] [place] [address] Scott Weldon MD [address] [place] [address] 06/30/2024 1:20 PM EST Office Visit [facility], [facility] [place] [address] Jazzy Chu DO [address] [place] [address] 07/07/2024 9:30 AM EST Telemedicine Psychiatry [address] [phone] Nhi Fritz CRNP [address] [place] [address] 07/08/2024 10:30 AM EST Telemedicine Gastroenterology, [facility] [address] [facility] [place] [address] Adam Bradshaw CRNP [address] [place] [address] 09/14/2024 2:00 PM EDT Office Visit Hematology/Oncology Roney Melendez [place] [address] [place] [phone] Sunil Bourgeois MD [address] [facility] [place] [address] 12/14/2024 12:20 PM EDT Office Visit Family Practice [facility] [address] [place] [address] Scott Weldon MD [address] [place] [address] Scheduled Procedures Name Priority Associated Diagnoses Date/Ti [...] 09/07/2024 09/08/2023, 09/2022, 06/14/2020, Additional history exists HbA1c 11/14/2024 05/16/2024, 12/2023, 07/23/2023, Additional history exists Diabetic Eye Exam 04/20/2025 04/20/2024, , 03/24/2024, Additional history exists Albumin/Creatinine Ratio 05/16/2025 024, 07/23/2023, 04/06/2023, Additional history exists GFR 05/16/2025 05/16/2024, 08/2023, 02/11/2024, Additional history exists Pap Smear 09/07/2026 09/08/2023, 10/2014, 04/12/2015, Additional history exists Lipid Panel 07/23/2028 05/16/2024, 07/09, 03/11/2022, Additional history exists DTap/Tdap Vaccines (3 - [...] this encounter Medical Devices Implanted Type Area Marketing Liaison Device Identifier Shelf Expiration Date Model / Serial / Lot Neurostimul Intellis Adaptiv - [id number] - [id number] Implanted:Qty: 1 on 08/22/2022 by Rafia Small MD at OR [facility] N/A: Spine Lumbar [employer] 06/21/2023 [id number] / [id number] / Description:battery Medtronic Lead Kit 60 Cm Implanted:Qty: 1 on 08/22/2022 by Rafia Small MD at OR [facility] N/A: Spine Lumbar 02/01/2026 [id number] / / [id number] Medtronic Lead Kit 60cm Implanted:Qty: 1 on 08/22/2022 by Rafia Small MD at OR [facility] N/A: Spine Lumbar 03/21/2026 [id number] / / [id number] Envelope Tyrx Med Antibacteril - [id number] Implanted:Qty: 1 on 08/22/2022 by Rafia Small MD at OR [facility] N/A: Spine Lumbar [employer] 03/10/2023 [id number] / / [id number] Hemostatic Clip Res 235cm - [id number] Implanted:Qty: 4 on 10/05/2023 by Aj Pruett, DO at ENDOSCOPY [facility] [employer] : ENDOSCOPY 02/03/2026 [id number] / / Hemostatic Clip Res 235cm - [id number] Implanted:Qty: 1 on 10/05/2023 by Aj Pruett, DO at ENDOSCOPY [facility] [employer] : ENDOSCOPY 02/02/2026 [id number] / / documented as of this encounter Procedures Procedure Name Priority Date/Time Associated Diagnosis Comments DIFFERENTIAL, AUTOMATED STAT 04/15/2024 11:12 AM EST Iron deficiency anemia, unspecified iron deficiency anemia type IRON SCREEN, INCLUDING TIBC STAT 04/15/2024 11:12 AM EST Iron deficiency anemia, unspecified iron deficiency anemia type CBC STAT 04/15/2024 11:12 AM EST Iron deficiency anemia, unspecified iron deficiency anemia type CBC STAT 04/15/2024 11:12 AM EST Iron deficiency anemia, unspecified iron deficiency anemia type DIFFERENTIAL, TECHNOLOGIST REVIEW Routine 04/15/2024 11:12 AM EST Iron deficiency anemia, unspecified iron deficiency anemia type FERRITIN STAT 04/15/2024 11:12 AM EST Iron deficiency anemia, unspecified iron deficiency anemia type documented in this encounter Results * (ABNORMAL) DIFFERENTIAL, TECHNOLOGIST REVIEW (04/15/2024 11:12 AM EST) nRBCs 04/15/2024 11:55 AM EST [facility] 56-02 Elliptocytes Moderate(A ) None Seen 04/15/2024 11:55 AM EST [facility] 56-02 Blood Venous blood specimen / Unknown Central Line / Unknown 04/15/2024 11:12 AM EST 04/15/2024 11:39 AM EST us Sunil Bourgeois MD LAB BLOOD ORDERABLES Final Res ult [facility] 56-[address] [place], [place] [phone] * DIFFERENTIAL, AUTOMATED (04/15/2024 11:12 AM EST) WBC 4.13 4.00 - 10.80 K/uL 04/15/2024 11:55 AM EST [facility] 56-02 Neutrophils % 61.5 40.0 - 75.0 % 04/15/2024 11:55 AM [facility] 56-02 Lymphocytes % 24.7 18.0 - 42.0 % 04/15/2024 11:55 AM EST [facility] 56-02 Monocytes % 8.7 1.0 - 11.0 % 04/15/2024 11:55 AM [facility] 56-02 Eosinophils % 4.4 0.0 - 6.0 % 04/15/2024 11:55 AM EST [facility] 56-02 Basophils % 0.7 0.0 - 2.0 % 04/15/2024 11:55 AM [facility] 56-02 Absolute Neutrophils 2.54 1.80 - 7.70 K/uL 04/15/2024 11:55 AM [facility] 56-02 Absolute Lymphocytes 1.02 1.00 - 4.80 K/ul 04/15/2024 11:55 AM [facility] 56-02 Absolute Monocytes 0.36 0.00 - 1.10 K/uL 04/15/2024 11:55 AM [facility] 56-02 Absolute Eosinophils 0.18 0.00 - 0.70 K/uL 04/15/2024 11:55 AM [facility] 56-02 Absolute Basophils 0.03 0.00 - 0.20 K/uL 04/15/2024 11:55 AM [facility] 56-02 Blood Venous blood specimen / Unknown Central Line / Unknown 04/15/2024 11:12 AM EST 04/15/2024 11:39 AM EST us Sunil Bourgeois MD LAB BLOOD ORDERABLES Final Res ult [facility] 56 [address] [place] [address] * (ABNORMAL) CBC (04/15/2024 11:12 AM EST) WBC 4.13 4.00 - 10.80 K/uL 04/15/2024 11:55 AM EST [facility] 56 RBC 4.14 3.85 - 5.15 M/uL 04/15/2024 11:55 AM [facility] HGB 11.0(L) 12.0 - 15.3 g/dL 04/15/2024 11:55 AM [facility] 56 HCT 35.4(L) 36.0 - 45.2 % 04/15/2024 11:55 AM [facility] 56 MCV 85.5 81.5 - 97.5 fL 04/15/2024 11:[address] MCH 26.6 27.0 - 34.0 pg 04/15/2024 11:55 AM [facility] 56 MCHC 31.1 32.0 - 36.0 g/dL 04/15/2024 11:55 AM [facility] 56 RDW 16.7 11.5 - 15.5 % 04/15/2024 11:55 AM [facility] 56 PLT 71(L) 140 - 400 K/uL 04/15/2024 11:55 AM [facility] 56 MPV 10.0 6.6 - 11.1 fL 04/15/2024 11:55 AM [facility] 5602 Blood Venous blood specimen / Unknown Central Line / Unknown 04/15/2024 11:12 AM EST 04/15/2024 11:39 AM EST us Sunil Bourgeois MD LAB BLOOD ORDERABLES Final Res ult [facility] [address] [place] [address] * IRON SCREEN, INCLUDING TIBC (04/15/2024 11:12 AM EST) Iron 80 33 - 151 ug/dL 04/15/2024 8:13 PM EST [facility] Iron Binding Capacity 329 250 - 425 ug/dL 04/15/2024 8:13 PM EST [facility] Transferrin Saturation Percent 24 15 - 55 % 04/15/2024 8:13 PM EST [facility] Blood Venous blood specimen / Unknown Central Line / Unknown 04/15/2024 11:12 AM EST 04/15/2024 11:39 AM EST Sunil Bourgeois MD LAB BLOOD ORDERABLES Final Res ult Performing Organization Address City/[facility] Co de Phone Number LAB[facility]ATORY [facility] [address] [place] [address] * FERRITIN (04/15/2024 11:12 AM EST) Ferritin 117 13 - 150 ng/mL 04/15/2024 8:43 PM EST [facility] Comment:Postmenopausal women have higher ferritin levels than pre-menopausal women. The above reference interval is based on pre-menopausal women. Blood Venous blood specimen / Unknown Central Line / Unknown 04/15/2024 11:12 AM EST 04/15/2024 11:39 AM EST Sunil Bourgeois MD LAB BLOOD ORDERABLES Final Res ult Performing Organization Address City/[facility] de Phone Number [facility]ORY [facility] [address] [place] [address] documented in this encounter Visit Diagnoses Diagnosis [...] Flush, Starting on Thu04/15/24 at 1130, Until Thu04/15/24 at 1848, For 24 hours, Do not flush if lock, PICC, or central line not in place; IV infusing or unable to flush.Indications:Iron deficiency anemia due to chronic blood loss,Cirrhosis of liver without ascites, unspecified hepatic cirrhosis type (HCC) Given 04/15/2024 1:17 PM EST 500 Units Iron Sucrose (Venofer) 300 mg in NSS 250 mL ivpb 300 mg, IV Piggyback, ONCE, 1 dose, On Thu04/15/24 at 1315, Administer over 90 MinutesIndications:Iron deficiency anemia due to chronic blood loss,Cirrhosis of liver without ascites, unspecified hepatic cirrhosis type (HCC) Start Infusion 04/15/2024 11:34 AM EST 300 mg 180 mL/hr NSS infusion 500 mL, Intravenous, at 50 mL/hr, CONTINUOUS, Starting on Thu04/15/24 at 1245, Until Thu04/15/24 at 1848Indications:Iron deficiency anemia due to chronic blood loss,Cirrhosis of liver without ascites, unspecified hepatic cirrhosis type (HCC) Start Infusion 04/15/2024 11:32 AM EST 500 mL 50 mL/hr sodium chloride 0.9 % flush central line 10 mL 10 mL, IV Push, PRN Other, IV Flush, Starting on Thu04/15/24 at 1130, Until Thu04/15/24 at 1848, For 24 hours, Do not flush if lock, PICC, or central line not in place; IV infusing or unable to flush.Indications:Iron deficiency anemia due to chronic blood loss,Cirrhosis of liver without ascites, unspecified hepatic cirrhosis type (HCC) Given 04/15/2024 1:17 PM EST 10 mL documented in this encounter Advance [...] of Attor narda? No Care Teams Group Captain Relationship Specialty Start Date End Date Scott Weldon MD [address] [place] [address] PCP - General Family Medicine 08/03/18 documented as of this encounter
--- OUTSIDE RECORDS SUMMARY | 2024-05-28 10:24 | External Medical Summary ---
Author Name Unknown Address Unknown Organization K01:[facility] [place] [facility] [address] [facility] [address] Laboratory Report Ordering Provider Test Date Status JAN RIBEIRO 05/16/2024 14:33:10 Final Observation Date Value Abnormality Reference (Units ) Status HbA1C 05/16/2024 14:33:10 6.5 Above high normal 4. 0-5.6 (%) Final The use of HbA1c to monitor glycemic status is based on normal hemoglobin and HbA composition. This test should not be used in patients with abnormal hemoglobin that affects the half life of the red blood cell or the in vivo glycation rates. Glucose, estimated average 05/16/2024 14:33:10 140 Above high normal <126 (mg/dL) Jaswinder burns Performing Location LAB[facility] [address] [facility] [address]
--- OUTSIDE RECORDS SUMMARY | 2024-05-28 10:24 | External Medical Summary | Summary of Care ---
Author Name Unknown Organization [facility] Address [address] [facility] [place] [address] Phone [phone] Care Team Providers Care Auto Refinisher Name Role Phone Scott Weldon MD Primary Care Provider + Reason for Visit * Reason Comments IV Therapy Venofer Encounter Details Date Type Department Care Team (Late st Contact Info) Description 04/15/2024 11:00 AM EST Nurse Only Hematology/Oncology Treatment, [address] [address] Park, Chair 3 Hem Onc [address] [phone] IV Therapy (Venofer) Allergies Active Allergy Reactions [...] than 8.0% ([facility]) Use as directed. 018 Active CPAP every [...] suspected opioid overdose. Seek immediate medical attention. https://[email or web address] [email or web address]/watch?v= [email or web address] 1 Each 3 023 Active Loratadine 10 [...] less than 8.0% ([facility]),DM type 2, not at goal (HCC) [...] low back pain with sciatica, sciatica laterality unspecified,Disabilities Caregiver sada pain syndrome Place 1 Patch topically [...] mRNA, LNP-s, No Pre serve, 2-Dose Series (HashParade) 11/08/2020,10/11/2020 HEP A - Hepatitis A (Adult > 18 yrs) 04/11/2011, 09/20/2010 Hepatitis B, 20+ yrs 07/05/2015 Pneumococcal Conjugate Vacci ne, 20-valent ([id number]) 03/13/2023 Pneumococcal Polysaccharide PPV23 (Pneumovax) 02/19/2018,03/09/2007 Seasonal [...] 2:40 PM EST Office Visit Family Practice [facility] [address] [place] [address] Scott Weldon MD 132 [facility] [place] [address] 06/13/2024 10:00 AM EST Hem/Onc Treatment Hematology/Oncology Treatment, [place] [address] [place] [phone] Nora, Chair 1 Hem Onc Scenery [address] [place] [address] 06/16/2024 8:30 AM EST Telemedicine Pharmacy, [facility] [address] [place] [address] [facility] [address] [place] [address] 06/27/2024 1:00 PM EST [facility] [phone] [facility] [address] [facility] [address] 06/30/2024 8:00 AM EST Office Visit Family Practice [facility] [address] [place] [address] Scott Weldon MD [address] [place] [address] 06/30/2024 1:20 PM EST Office Visit Hepatology, [facility] [place] [address] Jazzy Chu DO [address] [place] [address] 07/07/2024 9:30 AM EST Telemedicine Psychiatry [address] [phone] Nhi Fritz CRNP 1800 [place] [address] 07/08/2024 10:30 AM EST Telemedicine Gastroenterology, [facility] 132 [facility] [place] [address] Adam Bradshaw CRNP [address] [place] [address] 09/14/2024 2:00 PM EDT Office Visit Hematology/Oncology Roney Melendez [place] [address] [place] [phone] Sunil Bourgeois MD 200 [facility] [place] [address] 12/14/2024 12:20 PM EDT Office Visit Family Practice [facility] [address] [place] [address] Scott Weldon MD [address] [place] [address] Scheduled Procedures Name Priority Associated Diagnoses Date/Ti [...] this encounter Medical Devices Implanted Type Area Cylinder Machine Operator Device Identifier Shelf Expiration Date Model / Serial / Lot Neurostimul Intellis Adaptiv - [id number] - [id number] Implanted:Qty: 1 on 08/22/2022 by Rafia Small MD at OR [facility] N/A: Spine Lumbar [employer] 06/21/2023 [id number] / [id number] / Description:battery Medtronic Lead Kit 60 Cm Implanted:Qty: 1 on 08/22/2022 by Rafia Small MD at OR [facility] N/A: Spine Lumbar 02/01/2026 [id number] / / [id number] Medtronic Lead Kit 60cm Implanted:Qty: 1 on 08/22/2022 by Rafia Small MD at OR [facility] N/A: Spine Lumbar 03/21/2026 [id number] / / [id number] Envelope Tyrx Med Antibacteril - [id number] Implanted:Qty: 1 on 08/22/2022 by Rafia Small MD at OR [facility] N/A: Spine Lumbar [employer] 03/10/2023 [id number] / / [id number] Hemostatic Clip Res 235cm - [id number] Implanted:Qty: 4 on 10/05/2023 by Aj Pruett, DO at ENDOSCOPY [facility] 02/03/2026 [id number] / / Hemostatic Clip Res 235cm - [id number] Implanted:Qty: 1 on 10/05/2023 by Aj Pruett, DO at [facility] ENDOSCOPY 02/02/2026 [id number] / / documented as of this encounter [...] AM EST) nRBCs 04/15/2024 11:55 AM EST [facility] 56-02 Elliptocytes Moderate(A ) None Seen 04/15/2024 11:55 AM EST [facility] 56-02 Blood Venous blood specimen / Unknown Central Line / Unknown 04/15/2024 11:12 AM EST 04/15/2024 11:39 AM EST us Sunil Bourgeois MD LAB BLOOD ORDERABLES Final Res ult [facility] 56-[address] [place], [place] [phone] * DIFFERENTIAL, AUTOMATED (04/15/2024 11:12 AM EST) WBC 4.13 4.00 - 10.80 K/uL 04/15/2024 11:55 AM EST [facility] 56-02 Neutrophils % 61.5 40.0 - 75.0 % 04/15/2024 11:55 AM [facility] 56-02 Lymphocytes % 24.7 18.0 - 42.0 % 04/15/2024 11:55 AM EST [facility] 56-02 Monocytes % 8.7 1.0 - 11.0 % 04/15/2024 11:55 AM [facility] 56-02 Eosinophils % 4.4 0.0 - 6.0 % 04/15/2024 11:55 AM EST [facility] 56-02 Basophils % 0.7 0.0 - 2.0 % 04/15/2024 11:55 AM [facility] 56-02 Absolute Neutrophils 2.54 1.80 - 7.70 K/uL 04/15/2024 11:55 AM [facility] 56-02 Absolute Lymphocytes 1.02 1.00 - 4.80 K/ul 04/15/2024 11:55 AM [facility] 56-02 Absolute Monocytes 0.36 0.00 - 1.10 K/uL 04/15/2024 11:55 AM [facility] 56-02 Absolute Eosinophils 0.18 0.00 - 0.70 K/uL 04/15/2024 11:55 AM [facility] 56-02 Absolute Basophils 0.03 0.00 - 0.20 K/uL 04/15/2024 11:55 AM [facility] 56-02 Blood Venous blood specimen / Unknown Central Line / Unknown 04/15/2024 11:12 AM EST 04/15/2024 11:39 AM EST us Sunil Bourgeois MD LAB BLOOD ORDERABLES Final Res ult [facility] 56 [address] [place] [address] * (ABNORMAL) CBC (04/15/2024 11:12 AM EST) WBC 4.13 4.00 - 10.80 K/uL 04/15/2024 11:55 AM EST [facility] 56 RBC 4.14 3.85 - 5.15 M/uL 04/15/2024 11:55 AM [facility] HGB 11.0(L) 12.0 - 15.3 g/dL 04/15/2024 11:55 AM [facility] 56 HCT 35.4(L) 36.0 - 45.2 % 04/15/2024 11:55 AM [facility] 56 MCV 85.5 81.5 - 97.5 fL 04/15/2024 11:[address] MCH 26.6 27.0 - 34.0 pg 04/15/2024 11:55 AM [facility] 56 MCHC 31.1 32.0 - 36.0 g/dL 04/15/2024 11:55 AM [facility] 56 RDW 16.7 11.5 - 15.5 % 04/15/2024 11:55 AM [facility] 56 PLT 71(L) 140 - 400 K/uL 04/15/2024 11:55 AM [facility] 56 MPV 10.0 6.6 - 11.1 fL 04/15/2024 11:55 AM [facility] 5602 Blood Venous blood specimen / Unknown Central Line / Unknown 04/15/2024 11:12 AM EST 04/15/2024 11:39 AM EST us Sunil Bourgeois MD LAB BLOOD ORDERABLES Final Res ult [facility] 56 [address] [place] [address] * IRON SCREEN, INCLUDING TIBC (04/15/2024 11:12 AM EST) Iron 80 33 - 151 ug/dL 04/15/2024 8:13 PM EST [facility] [place] Iron Binding Capacity 329 250 - 425 ug/dL 04/15/2024 8:13 PM EST [facility] [place] Transferrin Saturation Percent 24 15 - 55 % 04/15/2024 8:13 PM EST [facility] [place] Blood Venous blood specimen / Unknown Central Line / Unknown 04/15/2024 11:12 AM EST 04/15/2024 11:39 AM EST Sunil Bourgeois MD LAB BLOOD ORDERABLES Final Res ult Performing Organization Address City/[facility] Co de Phone Number [facility] [place] [address] [place] [address] * FERRITIN (04/15/2024 11:12 AM EST) Ferritin 117 13 - 150 ng/mL 04/15/2024 8:43 PM EST [facility] [place] Comment:Postmenopausal women have higher ferritin levels than pre-menopausal women. The above reference interval is based on pre-menopausal women. Blood Venous blood specimen / Unknown Central Line / Unknown 04/15/2024 11:12 AM EST 04/15/2024 11:39 AM EST Sunil Bourgeois MD LAB BLOOD ORDERABLES Final Res ult Performing Organization Address City/[facility] de Phone Number [facility] [place] [address] [place] [address] documented in this encounter Visit Diagnoses Diagnosis [...] Weldon MD [address] [place] [address] PCP - General Family Medicine 08/03/18 documented as of this encounter
--- OUTSIDE RECORDS SUMMARY | 2024-05-28 10:24 | External Medical Summary | Summary of Care ---
Author Name Unknown Organization [facility] Address [address] [facility] [place] [address] Phone [phone] Care Team Providers Care Acid Painter Name Role Phone Scott Weldon MD Primary Care Provider + Reason for Visit * Reason Onset Date Comments Test Results 05/17/2024 Encounter Details Date Type Department Care Team (Late st Contact Info) Description 05/17/2024 Telephone NephrologyRoney 200 [place] [address] Jonathan Mathew MD 200 [place] [address] Test Results Allergies Active Allergy Reactions Criticality Noted Date Comments Naproxen Sodium Bleeding High 11/29/2013 Pollen 12/03/2022 Seasonal Food (See Comments) Anaphylaxis High 04/20/2019 Hot peppers (oils) Kiwi Extract Anaphylaxis High 04/20/2019 documented as of this encounter (statuses as of 05/17/2024) Medications ONETOUCH ULTRASOFT LANCETS MISCIndications:DM type 2, [...] less than 8.0% ([facility]) Use as directed. 07/30/19 18 [...] suspected opioid overdose. Seek immediate medical attention. https://www.Visible Light Solar Technologies.com/watch?v=v2 [email or web address] 1 Each 3 11/28/19 23 Active Loratadine [...] of less than 8.0% ([facility]),DM type 2, not at goal ([facility]) INJECT UP TO 200 UNITS [...] bedtime. 90 Tablet 2 05/16/20 24 Active Ozempic (2 MG/DOSE) 8 MG/3ML Subcutaneous Solution Pen-injector (Semaglutide (2 MG/DOSE)) Inject under the skin. Obtaining from [employer] PAP Active documented as of this encounter (statuses [...] (09/03/2009): Per Obesity Taxonomy Coronary atherosclerosis of [place] coronary artery 09/15/2008 10/03/2008 Malaise and [...] mRNA, LNP-s, No Pre serve, 2-Dose Series ([employer]) 11/08/2020,10/11/2020 HEP A - Hepatitis A (Adult > 18 yrs) 04/11/2011, 09/20/2010 Hepatitis B, 20+ yrs 07/05/2015 Pneumococcal Conjugate Vacci ne, 20-valent ([id number]) 03/13/2023 Pneumococcal Polysaccharide PPV23 (Pneumovax) 02/19/2018,03/09/2007 Seasonal [...] 05/17/2024 Does the household have a re gular [...] Telephone Encounter - Zora Nunn LPN - 05/17/2024 3:22 PM EST Pt is advised of results and to continue same * Telephone Encounter - Zora Nunn LPN - 05/17/2024 3:21 PM EST ----- Message from Jonathan Mathew MD sent at 05/17/2024 3:19 PM EST ----- Labs stable. Continue same documented in this encounter Plan of Treatment Upcoming Encounters Date Type Department Care Team (Late st Contact Info) Description 05/18/2024 2:40 PM EST Office Visit [facility] [address] [place] [address] Scott Weldon MD [address] [place] [address] 06/13/2024 10:00 AM EST Hem/Onc Treatment Hematology/Oncology Treatment, [place] [address] [place], [place] [phone] Nora, Chair 1 Hem Onc Scenery [address] [place], [place] [address] 06/16/2024 8:30 AM EST Telemedicine Pharmacy, [facility] 132 [facility] [place] [address] [facility] 132 [facility] [place] [address] 06/27/2024 1:00 PM EST Office Visit Pharmacy, [facility] [address] [place] [phone] [address] [address] 06/30/2024 8:00 AM EST Office Visit [facility] 132 [facility] [place] [address] Scott Weldon MD [address] [place] [address] 06/30/2024 1:20 PM EST Office Visit Hepatology, [facility] 132 [facility] [place] [address] Jazzy Chu DO [address] [place] [address] 07/07/2024 9:30 AM EST Telemedicine Psychiatry [facility] [address] [place] [address] Nhi Fritz CRNP 1800 [place] [address] 07/08/2024 10:30 AM EST Telemedicine Gastroenterology, [facility] [place] [address] Adam Bradshaw CRNP [address] [place] [address] 09/14/2024 2:00 PM EDT Office Visit Hematology/Oncology [facility] 200 [place] [address] Sunil Bourgeois MD 200 [facility], [place] [address] 12/14/2024 12:20 PM EDT Office Visit Family Practice [facility] 132 [facility] [place] [address] Scott Weldon MD [address] [facility] [place] [address] Scheduled Procedures Name Priority Associated Diagnoses Date/Ti [...] 05/16/2025 05/16/2024, 08/2023, 02/11/2024, Additional history exists Depression Monitoring 05/17/2025 05/17/2024 Pap Smear 09/07/2026 09/08/2023, 10/2014, 04/12/2015, Additional [...] this encounter Medical Devices Implanted Type Area Java Project Manager Device Identifier Shelf Expiration Date Model / Serial / Lot Neurostimul Intellis Adaptiv - [id number] - [id number] Implanted:Qty: 1 on 08/22/2022 by Rafia Small MD at OR [facility] N/A: Spine Lumbar [employer] 06/21/2023 [id number] / [id number] / Description:battery Medtronic Lead Kit 60 Cm Implanted:Qty: 1 on 08/22/2022 by Rafia Small MD at OR [facility] N/A: Spine Lumbar 02/01/2026 [id number] / / [id number] Medtronic Lead Kit 60cm Implanted:Qty: 1 on 08/22/2022 by Rafia Small MD at OR [facility] N/A: Spine Lumbar 03/21/2026 [id number] / / [id number] Envelope Tyrx Med Antibacteril - [id number] Implanted:Qty: 1 on 08/22/2022 by Rafia Small MD at OR [facility] N/A: Spine Lumbar [employer] 03/10/2023 [id number] / / [id number] Hemostatic Clip Res 235cm - [id number] Implanted:Qty: 4 on 10/05/2023 by Aj Pruett DO at ENDOSCOPY [facility] : ENDOSCOPY 02/03/2026 [id number] / / Hemostatic Clip Res 235cm - [id number] Implanted:Qty: 1 on 10/05/2023 by Aj Pruett DO at ENDOSCOPY [facility] ENDOSCOPY 02/02/2026 [id number] / / documented as of this encounter [...] Power of Attor narda? No Care Teams Acid Painter Relationship Specialty Start Date End Date Scott Weldon MD [address] [place] [address] PCP - General Family Medicine 08/03/18 documented as of this encounter
--- OUTSIDE RECORDS SUMMARY | 2024-05-28 10:25 | External Medical Summary ---
Author Name Unknown Address Unknown Organization K01:[facility] - [address] [place] [address] Laboratory Report Ordering Provider Test Date Status LISA MARIE 05/16/2024 14:33:10 Final Deficient: <20 ng/mL
Ins ufficient: 20-29 ng/mL
Recommended/Optimum:30-50 ng/mL

Vitamin D intoxication is rare. If suspicious of Vitamin D toxicity, evaluation of serum Calcium and PTH is recommended. Observation Date Value Abnormality Reference (Units ) Status 25-OH Vitamin D total 05/16/2024 14:33:10 35 >19 (ng/mL) Final Performing Location [facility] - [address] [place] [address]
--- OUTSIDE RECORDS SUMMARY | 2024-05-28 10:25 | External Medical Summary | Summary of Care ---
Author Name Unknown Organization [facility] Address [address] [facility] [place] [address] Phone [phone] Care Team Providers Care Order Detailer Name Role Phone Scott Weldon MD Primary Care Provider + Reason for Visit * Reason Onset Date Comments Appointment 05/13/2024 Encounter Details Date Type Department Care Team (Late st Contact Info) Description 05/13/2024 Telephone Hematology/Oncology [facility] [place] [address] [facility] [place] [phone] Sunil Bourgeois MD 200 [facility] [address] Appointment Allergies Active Allergy Reactions Criticality Noted Date Comments Naproxen Sodium Bleeding High 11/29/2013 Pollen 12/03/2022 Seasonal Food (See Comments) Anaphylaxis High 04/20/2019 Hot peppers (oils) Kiwi Extract Anaphylaxis High 04/20/2019 documented as of this encounter (statuses as of 05/13/2024) Medications ONETOUCH ULTRASOFT LANCETS MISCIndications:DM type 2, [...] 5 02/18/20 17 Active Insulin Infusion Pump (MINIMWeblicon Technologies 630G INSULIN PUMP) KITIndications:Typ e 2 diabetes mellitus with hemoglobin A1c goal of less than 8.0% ([facility]) Use as directed. 07/30/19 18 Active CPAP [...] suspected opioid overdose. Seek immediate medical attention. https://www.Wine [email or web address]/watch?v=v2 [email or web address] 1 Each 3 11/28/19 23 Active Loratadine [...] 3 4 11:28 AM EST 02/14/20 24 Active Baclofen 10 MG Oral [...] skin once a week. 4 Patch 05/04/20 Active Albuterol Sulfate HFA 108 (90 Base) MCG/ACT Inhalation Aerosol Solution Inhale 2 puffs by mouth every 6 hours as needed for shortness of breath 20.1 g 03/19/20 24 Active documented as of this encounter (statuses as of 05/13/2024) Active Problems Problem Noted Date Diagnosed Date [...] as of this encounter (statuses as of 05/13/2024) Resolved Problems Problem Noted Date Diagnosed Date [...] (09/03/2009): Per Obesity Taxonomy Coronary atherosclerosis of [place] coronary artery 09/15/2008 10/03/2008 Malaise and fatigue [...] as of this encounter (statuses as of 05/13/2024) Immunizations Name Administration Dates Next Due COVID-19 mRNA, LNP-s, No Pre serve, 2-Dose Series ([employer]) 11/08/2020,10/11/2020 HEP A - Hepatitis A (Adult > 18 yrs) 04/11/2011, 09/20/2010 Hepatitis B, 20+ yrs 07/05/2015 Pneumococcal Conjugate Vacci ne, 20-valent (Lsoktuk19) 03/13/2023 Pneumococcal Polysaccharide PPV23 (Pneumovax) 02/19/2018,03/09/2007 Seasonal [...] encounter Miscellaneous Notes * Telephone Encounter - Bronwyn Murcia LPN - 05/13/2024 10:05 AM EST Patient had called stated she wanted to come early for Venofer infusion instead of waiting until 2pm. At that time was advised to come at 1045am. After discussion, the patient needs to be rescheduleddue to the fact that she was admitting and being discharged today from [facility]. Due to billing/coding patient cannot be billed on the same day from 2 different providers. Called and spoke with Sim who was getting ready to go pick her up. Advised we would need to reschedule the infusion to next week due to the above billing/coding reason. He stated he would let her know when he picks her up that she is scheduled for 05/17 at 230pm. Sim understood and agreed. documented in this encounter Plan of Treatment Upcoming Encounters Date Type Department Care Team (Late st Contact Info) Description 05/16/2024 1:00 PM EST [facility] [phone] [place] [address] 05/16/2024 2:30 PM EST Hem/Onc Treatment Hematology/Oncology Treatment, [place] 200 [place] [address] Nora, Chair [address] [facility] 200 [facility], [place] [address] 06/16/2024 8:30 AM EST Telemedicine Pharmacy, [facility] 132 [facility] [place] [address] [facility] 132 [facility] [place] [address] 06/30/2024 8:00 AM EST Office Visit Family Practice [facility] [place] [address] [place] [address] Scott Weldon MD [address] [place] [address] 06/30/2024 1:20 PM EST [facility] 132 [facility] [place], [place] [address] Jazzy Chu DO [facility] [place] [address] 07/07/2024 9:30 AM EST Telemedicine Psychiatry [facility] [address] [place] [address] Nhi Fritz CRNP 1800 [place] [address] 07/08/2024 10:30 AM EST Telemedicine Gastroenterology, [facility] [place] [address] Adam Bradshaw CRNP 132 [facility] [place] [address] 09/14/2024 2:00 PM EDT Office Visit Hematology/Oncology [facility] [address] [facility] [place] [address] Sunil Bourgeois MD 200 [facility] [address] 12/14/2024 12:20 PM EDT Office Visit Family Practice [facility] 132 [facility] [place] [address] Scott Weldon MD 132 [facility] [place] [address] Scheduled Procedures Name Priority Associated Diagnoses [...] encounter Medical Devices Implanted Type Area Radio Station Manager Device Identifier Shelf Expiration Date Model / Serial / Lot Neurostimul Intellis Adaptiv - [id number] - [id number] Implanted:Qty: 1 on 08/22/2022 by Rafia Small MD at OR [facility] N/A: Spine Lumbar [employer] 06/21/2023 [id number] / [id number] / Description:battery Medtronic Lead Kit 60 Cm Implanted:Qty: 1 on 08/22/2022 by Rafia Small MD at OR [facility] N/A: Spine Lumbar 02/01/2026 [id number] / / [id number] Medtronic Lead Kit 60cm Implanted:Qty: 1 on 08/22/2022 by Rafia Small MD at OR [facility] N/A: Spine Lumbar 03/21/2026 [id number] / / [id number] Envelope Tyrx Med Antibacteril - [id number] Implanted:Qty: 1 on 08/22/2022 by Rafia Small MD at OR [facility] N/A: Spine Lumbar [employer] 03/10/2023 [id number] / / [id number] Hemostatic Clip Res 235cm - [id number] Implanted:Qty: 4 on 10/05/2023 by Aj Pruett DO at ENDOSCOPY [facility] 02/03/2026 [id number] / / Hemostatic Clip Res 235cm - [id number] Implanted:Qty: 1 on 10/05/2023 by Aj Pruett DO at ENDOSCOPY [facility] : ENDOSCOPY 02/02/2026 [id number] / / documented as of this encounter [...] Power of Attor narda? No Care Teams Order Detailer Relationship Specialty Start Date End Date Scott Weldon MD 132 [facility] [place] [address] PCP - General Family Medicine 08/03/18 documented as of this encounter
--- OUTSIDE RECORDS SUMMARY | 2024-05-28 10:25 | External Medical Summary ---
Author Name Unknown Address Unknown Organization K09:[facility] [place] [address] Laboratory Report Ordering Provider Test Date Status LUIS ANTONIO LEIVA 05/16/2024 14:33:10 Final Observation Date Value Abnormality Reference (Units ) Status WBC, Total 05/16/2024 14:33:10 6.97 4.00-10.8 0 (K/uL) Final RBC 05/16/2024 14:33:10 4.16 3.85-5.15 (M/uL) Final Hemoglobin 05/16/2024 14:33:10 11.3 Below low normal 12 .0-15.3 (g/dL) Final HCT 05/16/2024 14:33:10 35.1 Below low normal 36. 0-45.2 (%) Final MCV 05/16/2024 14:33:10 84.4 81.5-97.5 (fL) Final MCH 05/16/2024 14:33:10 27.2 27.0-34.0 (pg) Final MCHC 05/16/2024 14:33:10 32.2 32.0-36.0 (g/dL) Final RDW 05/16/2024 14:33:10 17.2 11.5-15.5 (%) Final Platelets 05/16/2024 14:33:10 71 Below low normal 140 -400 (K/uL) Final MPV 05/16/2024 14:33:10 9.6 6.6-11.1 ( fL) Final Performing Location [facility] [place] [address]
--- OUTSIDE RECORDS SUMMARY | 2024-05-28 10:25 | External Medical Summary ---
Author Name Unknown Address Unknown Organization [id number]:LABORATORY [facility] [place] - [facility] [address] [place] [address] Laboratory Report Ordering Provider Test Date Status JAN RIBEIRO 05/16/2024 14:33:10 Final Observation Date Value Abnormality Reference (Units ) Status Triglyceride 05/16/2024 14:33:10 171 <=174 ( mg/dL) Final Triglyceride Reference Range s (mg/dL):
<150 Acceptable
150-174 Borderline high
175-499 High
>=500 Very high Cholesterol 05/16/2024 14:33:10 142 <200 (mg /dL) Final Total Cholesterol Reference Ranges (mg/dL):
<200 Desirable
200-239 Borderline high
>=240 High HDL 05/16/2024 14:33:10 52 >49 (mg/dL ) Final HDL Cholesterol Reference Ra nges (mg/dL):
>=60 High (Desirable)
<50 Low (Undesirable) For Females
<40 Low (Undesirable) For Males NON-HDL CHOLESTEROL 05/16/2024 14:33:10 90 <=159 (mg/dL) Final Non-HDL Cholesterol Referenc e Range (mg/dL):
<100 Target level for high risk ASCVD patient
<130 Optimal for general population
130-159 Near optimal for general population
160-189 Borderline High
190-219 High
>=220 Very High Performing Location LABORATORY [facility] [place] - [address] [place] [address]
--- OUTSIDE RECORDS SUMMARY | 2024-05-28 10:25 | External Medical Summary ---
Author Name Unknown Address Unknown Organization [id number]:[facility] [place] [address] Laboratory Report Ordering Provider Test Date Status LISA MARIE 05/16/2024 14:33:10 Final Observation Date Value Abnormality Reference (Units ) Status Magnesium 05/16/2024 14:33:10 1.5 1.5-2.6 (m g/dL) Final Performing Location [facility] [place] [address]
--- OUTSIDE RECORDS SUMMARY | 2024-05-28 10:25 | External Medical Summary ---
Author Name Unknown Address Unknown Organization [id number][place] [facility] [place] [facility] [address] [place] [address] Laboratory Report Ordering Provider Test Date Status LISA MARIE 05/16/2024 14:33:10 Final Observation Date Value Abnormality Reference (Units ) Status Parathyrin.intact [Mass/volume] in Serum or Plasma 05/16/2024 14:33:10 156 Above high normal 15-65 (pg/mL) Final Performing Location [place] [facility] [place] [facility] [place] [address]
--- OUTSIDE RECORDS SUMMARY | 2024-05-28 10:25 | External Medical Summary | Summary of Care ---
Author Name Unknown Organization [facility] Address [address] [facility] [place] [address] Phone [phone] Care Team Providers Care Video Game Animator Name Role Phone Scott Weldon MD Primary Care Provider + Encounter Details Date Type Department Care Team (Late st Contact Info) Description 05/16/2024 Orders Only Hematology/Oncology Treatment, [place] [address] [place] [address] Sunil Bourgeois MD [address] [place] [address] Allergies Active Allergy Reactions Criticality Noted Date [...] less than 8.0% ([facility]) Use as directed. 07/30/19 18 [...] suspected opioid overdose. Seek immediate medical attention. [email or web address] 1 Each 3 11/28/19 23 Active Loratadine [...] ([facility]) INJECT UP TO 200 UNITS [...] shot/SI injection consent signed Family friend-Tony. Son Ricky-fall 2018. Also son Hieu. Sim--2019 melanoma. . 12/24 [...] (09/03/2009): Per Obesity Taxonomy Coronary atherosclerosis of [place] coronary artery 09/15/2008 10/03/2008 Malaise and fatigue [...] mRNA, LNP-s, No Pre serve, 2-Dose Series (Reebonz) 11/08/2020,10/11/2020 HEP A - Hepatitis A (Adult > 18 yrs) 04/11/2011, 09/20/2010 Hepatitis B, 20+ yrs 07/05/2015 Pneumococcal Conjugate Vacci ne, 20-valent (Dscphin66) 03/13/2023 Pneumococcal Polysaccharide PPV23 (Pneumovax) 02/19/2018,03/09/2007 Seasonal [...] EST Office Visit Pharmacy, Jayesh Regan [address] [phone] [facility] [address] [facility] [place] [address] 05/16/2024 2:30 PM EST Hem/Onc Treatment Hematology/Oncology Treatment, [place] [address] [place] [phone] Nora, Chair 1 Hem On[facility] [address] [place] [address] 05/18/2024 2:40 PM EST Office Visit [facility] [address] [place] [address] Scott Weldon MD [address] [place] [address] 06/16/2024 8:30 AM EST Telemedicine Pharmacy, [facility] [address] [place] [address] [facility] [address] [place] [address] 06/30/2024 8:00 AM EST Office Visit [facility] [address] [place] [address] Scott Weldon MD [address] [place] [address] 06/30/2024 1:20 PM EST Office Visit Hepatology, [facility] [address] [place] [address] Jazzy Chu DO [address] [place] [address] 07/07/2024 9:30 AM EST Telemedicine Psychiatry [facility] [address] [place] [address] Nhi Fritz, DIRECTOR OF INSTRUCTIONAL TECHNOLOGY [address] [place] [address] 07/08/2024 10:30 AM EST Telemedicine Gastroenterology, [facility] [address] [facility] [place] [address] Adam Bradshaw CRNP [address] [facility] [place] [address] 09/14/2024 2:00 PM EDT Office Visit Hematology/Oncology [facility] [address] [facility] [place] [address] Sunil Bourgeois MD [address] [place] [address] 12/14/2024 12:20 PM EDT Office Visit Family Practice [facility] [address] [facility] [place] [address] Scott Weldon MD [address] [place] [address] Scheduled Procedures Name Priority Associated Diagnoses Date/Ti [...] this encounter Medical Devices Implanted Type Area Energy Economist Device Identifier Shelf Expiration Date Model / Serial / Lot Neurostimul Intellis Adaptiv - [id number] - [id number] Implanted:Qty: 1 on 08/22/2022 by Rafia Small MD at OR [facility] N/A: Spine Lumbar [employer] 06/21/2023 [id number] / [id number] / Description:battery Medtronic Lead Kit 60 Cm Implanted:Qty: 1 on 08/22/2022 by Rafia Small MD at OR [facility] N/A: Spine Lumbar 02/01/2026 [id number] / / [id number] Medtronic Lead Kit 60cm Implanted:Qty: 1 on 08/22/2022 by Rafia Small MD at OR [facility] N/A: Spine Lumbar 03/21/2026 [id number] / / [id number] Envelope Tyrx Med Antibacteril - [id number] Implanted:Qty: 1 on 08/22/2022 by Rafia Small MD at OR [facility] N/A: Spine Lumbar [employer] 03/10/2023 [id number] / / [id number] Hemostatic Clip Res 235cm - [id number] Implanted:Qty: 4 on 10/05/2023 by Aj Pruett DO at [facility]COPY [facility] : ENDOSCOPY 02/03/2026 [id number] / / Hemostatic Clip Res 235cm - [id number] Implanted:Qty: 1 on 10/05/2023 by Aj Pruett DO at [facility] : ENDOSCOPY 02/02/2026 [id number] / / documented as of this encounter [...] Power of Attor narda? No Care Teams Video Game Animator Relationship Specialty Start Date End Date Scott Weldon MD [address] [place] [address] PCP - General Family Medicine 08/03/18 documented as of this encounter
--- OUTSIDE RECORDS SUMMARY | 2024-05-28 10:25 | External Medical Summary ---
Author Name Unknown Address Unknown Organization K01:[place] [place] [address] [place] [address] Laboratory Report Ordering Provider Test Date Status LUIS ANTONIO LEIVA 05/16/2024 14:33:10 Final Observation Date Value Abnormality Reference (Units ) Status Iron 05/16/2024 14:33:10 52 33-151 (ug /dL) Final Iron-binding capacity 05/16/2024 14:33:10 281 250-425 (ug/dL) Final Transferrin Sat % 05/16/2024 14:33:10 19 15 -55 (%) Final Performing Location [facility] [place] [facility] [place] [address]
--- OUTSIDE RECORDS SUMMARY | 2024-05-28 10:25 | External Medical Summary ---
Author Name Unknown Address Unknown Organization K01:[facility]ORY [facility] [place] [address] [place] [address] Laboratory Report Ordering Provider Test Date Status JAN RIBEIRO 05/16/2024 14:33:10 Final Observation Date Value Abnormality Reference (Units ) Status LDL, (direct) 05/16/2024 14:33:10 65 <=129 (mg/dL) Final LDL Cholesterol Reference Ra nges (mg/dL):
<70 Target level for high risk ASCVD patient
<100 Optimal for general population
100-129 Near optimal for general population
130-159 Borderline high
160-189 High
>=190 Very high Performing Location LABORATORY C - [address] [place] [address]
--- OUTSIDE RECORDS SUMMARY | 2024-05-28 10:25 | External Medical Summary ---
Author Name Unknown Address Unknown Organization K01:LABORATORY [facility] [place] - [address] [place] [address] Laboratory Report Ordering Provider Test Date Status LUIS ANTONIO LEIVA 05/16/2024 14:33:10 Final Observation Date Value Abnormality Reference (Units ) Status Ferritin 05/16/2024 14:33:10 257 Above high normal 13 -150 (ng/mL) Final Postmenopausal women have hi gher ferritin levels than pre-menopausal women. The above reference interval is based on pre-menopausal women. Performing Location LABORATORY [facility] [place] - [address] [place] [address]
--- OUTSIDE RECORDS SUMMARY | 2024-05-28 10:25 | External Medical Summary ---
Author Name Unknown Address Unknown Organization K01:LAB[facility]ATORY [facility] [place] - [address] [place] [address] Laboratory Report Ordering Provider Test Date Status JAN RIBEIRO 05/16/2024 14:33:10 Final Observation Date Value Abnormality Reference (Units ) Status Lipase 05/16/2024 14:33:10 69 Above high normal 13 -60 (U/L) Final Performing Location LABORATORY C - [address] [place] [address]
--- OUTSIDE RECORDS SUMMARY | 2024-05-28 10:25 | External Medical Summary ---
Author Name Unknown Address Unknown Organization K09:[facility]ORY [facility] [place] [address] Laboratory Report Ordering Provider Test Date Status LUIS ANTONIO LEIVA 05/16/2024 14:33:10 Final Observation Date Value Abnormality Reference (Units ) Status SYNC LEUKOCYTES IN BLOOD BY AUTOMATED COUNT 05/16/2024 14:33:10 6.97 4.00-10.80 (K/uL) Final Segs 05/16/2024 14:33:10 66.3 40.0-75.0 (%) Final Lymphs % 05/16/2024 14:33:10 20.4 18.0-42.0 (%) Final Monos 05/16/2024 14:33:10 8.8 1.0-11.0 (%) Final Eosinophils 05/16/2024 14:33:10 4.2 0.0-6.0 (%) Final Basos 05/16/2024 14:33:10 0.3 0.0-2.0 (%) Final Absolute Segs 05/16/2024 14:33:10 4.63 1.80-7.70 (K/uL) Final Lymphs, absolute 05/16/2024 14:33:10 1.42 1.00-4.80 (K/ul) Final Monos, Abs 05/16/2024 14:33:10 0.61 0.00-1.10 (K/uL) Final Eos, Abs 05/16/2024 14:33:10 0.29 0.00-0.70 (K/uL) Final Basos, Abs 05/16/2024 14:33:10 0.02 0.00-0.20 (K/uL) Final Performing Location [facility] [address]
--- OUTSIDE RECORDS SUMMARY | 2024-05-28 10:25 | External Medical Summary ---
Author Name Unknown Address Unknown Organization K09:[facility] [place] [address] Laboratory Report Ordering Provider Test Date Status LISA MARIE 05/16/2024 14:33:10 Final Observation Date Value Abnormality Reference (Units ) Status BUN 05/16/2024 14:33:10 21 Above high normal 6-20 (mg/dL) Final Creatinine 05/16/2024 14:33:10 1.4 Above high normal 0.5-1.0 (mg/dL) Final Glomerular filtration rate/1.73 sq M.predicted [Volume Rate/Area] in Serum, Plasma or Blood by Creatinine-based formula (CKD-EPI) 05/16/2024 14:33:10 47 Below low normal >=60 (mL/min) Final eGFR is calculated based on the CKD-EPI 2020 equation. Sodium 05/16/2024 14:33:10 142 135-146 (m mol/L) Final Potassium 05/16/2024 14:33:10 3.9 3.5-5.1 (m mol/L) Final Cl 05/16/2024 14:33:10 104 98-107 (mm ol/L) Final CO2 05/16/2024 14:33:10 26 22-32 (mmo l/L) Final Anion gap 05/16/2024 14:33:10 12 7-15 (mmol /L) Final Glucose 05/16/2024 14:33:10 92 70-120 (mg /dL) Final Calcium 05/16/2024 14:33:10 9.0 8.4-10.2 ( mg/dL) Final Albumin 05/16/2024 14:33:10 3.9 3.8-5.0 (g /dL) Final Phosphate 05/16/2024 14:33:10 3.5 2.5-4.8 (m g/dL) Final Performing Location [facility] [address]
[2024-05-28] MEDS: MoRPHine SULFATE 4 MG/ML 1 ML CARP\\VIAL IV STA (10:37)
[2024-05-28] MEDS: ONDANSETRON INJ 2 MG/ML 2 ML VIAL IV STA (10:37)
[2024-05-28] MEDS: SODIUM CHLORIDE 0.9% 250 ML IV ONE (10:37)
[2024-05-28 10:41] LABS: Basophils # (auto) 0.03 K/uL (0.00-0.20); Basophils % (auto) 0.7 %; Eosinophils # (auto) 0.21 K/uL (0.00-0.50); Eosinophils % (auto) 4.8 %; Hematocrit (blood only) 33.7 % (37.0-47.0); Immature Granulocytes # (auto) 0.02 K/uL (0.01-0.20); Immature Granulocytes % (auto) 0.5 %; Lymphocytes # (auto) 0.87 K/uL (1.20-3.40); Lymphocytes % (auto) 19.7 %; Mean Corpuscular Hemoglobin 27.4 pg (25.0-34.0); Mean Corpuscular Hgb Conc 32.6 g/dL (32.0-36.0); Mean Platelet Volume 9.7 fL (9.4-12.4); Monocytes # (auto) 0.32 K/uL (0.11-0.59); Monocytes % (auto) 7.3 %; Neutrophils # (auto) 2.96 K/uL (1.40-6.50); Platelet Count 62 K/uL (130-400); RDW Coefficient of Variation 17.2 % (11.5-14.5); RDW Standard Deviation 53.1 fL (36.4-46.3); Red Blood Count 4.01 M/uL (4.20-5.40); White Blood Count 4.41 K/ul (4.8-10.8)
[2024-05-28 10:46] LABS: iSTAT Hemoglobin 10.9 g/dl (12.0-16.0); iSTAT Ionized Calcium 1.12 mmol/l (1.12-1.32); iSTAT Potassium 4.2 mmol/L (3.3-5.0)
[2024-05-28 10:53] LABS: Albumin Level 3.4 gm/dl (3.4-5.0); BUN Creatinine Ratio 15.8 (10-20); Bilirubin,Total 0.6 mg/dl (0.2-1.0); Calcium 8.9 mg/dl (8.6-10.3); Creatinine Clr Calc Pharmacy 38.6 ml/min; Globulin 3.4 gm/dl (2.5-4.0); Potassium 4.4 mmol/L (3.5-5.1); Total Protein 6.8 gm/dl (6.0-8.3)
[2024-05-28 11:07] LABS: INR 1.1 (0.9-1.1); Partial Thromboplastin Time 26 Seconds (21-31); Prothrombin Time 11.8 Seconds (9.0-12.0)
[2024-05-28] MEDS: SODIUM CHLORIDE 0.9% 500 ML IV ONE ×2 (11:08→16:19)
--- NOTE | 2024-05-28 11:18 | CT Scan Report ---
EXAM: CT Abdomen and Pelvis Without Intravenous Contrast INDICATION: Right abdominal pain. TECHNIQUE: Axial computed tomography images of the abdomen and pelvis without intravenous contrast. Sagittal and coronal reformatted images were created and reviewed. This CT exam was performed using one or more of the following dose reduction techniques: automated exposure control, adjustment of the mA and/or kV according to patient size, and/or use of iterative reconstruction technique. COMPARISON: 05/10/2024 FINDINGS: Limitations: None. Lung bases: No abnormality noted. Pleural space: No visualized pleural effusion or pneumothorax. Heart: No abnormality noted. Mediastinum: No abnormality noted. ABDOMEN: Liver: Cirrhotic liver unchanged. No visible mass or ductal dilatation. Gallbladder and bile ducts: The gallbladder is mildly distended and may be mildly inflamed. No calcified stones. Pancreas: No pancreatic mass, calcification, inflammation or ductal dilation noted. Spleen: Stable splenomegaly-15.2 cm long. Adrenals: No significant abnormality noted. Kidneys and ureters: Stable mild bilateral perinephric scarring. No stones or hydronephrosis. Stomach and bowel: No change mild increased density in the paracolic fact presumably scarring. No obstruction. No intestinal thickening. PELVIS: Appendix: Well seen and appears normal. Bladder: Appears normal for the degree of filling. No stones or inflammation. No large mass. Masses may not be detected in the absence of opacification. Reproductive: No abnormalities noted. ABDOMEN and PELVIS: Intraperitoneal space: No free air. No significant fluid collection. Bones/joints: No acute changes. Soft tissues: No significant abnormality noted. Vasculature: No abdominal aortic aneurysm. Lymph nodes: No pathologically enlarged lymph nodes. Tubes, lines and devices: Dorsal column electrode terminates in the mid thoracic canal. IMPRESSION: 1. The gallbladder is mildly distended and may be mildly inflamed. No calcified stones. Consider sonography. 2. Cirrhosis and splenomegaly. ACT 112: Negative or not required by law. Electronically signed by Helen Falcon 05-28-2024 11:17 AM
[2024-05-28] MEDS: fentaNYL citrate PF 100 MCG/2 ML VIAL IV STA ×2 (11:26→14:15)
--- NOTE | 2024-05-28 12:33 | Ultrasound Report ---
EXAM:US Abdomen Limited Gallbladder INDICATION: Right abdominal pain. TECHNIQUE: Real-time ultrasound of the gallbladder with image documentation. COMPARISON: No relevant prior studies available. FINDINGS: Liver: Enlarged to 18.1 cm long and is mildly heterogeneous and echogenic. Smooth contour. No ductal dilatation or mass. Gallbladder: No gallstones, wall thickening or surrounding fluid. Common bile duct: No significant abnormality noted. No stones. No dilation. IMPRESSION: 1. Large fatty liver. 2. Normal sonographic appearance of the gallbladder. ACT 112: Negative or not required by law. Electronically signed by Helen Falcon 05-28-2024 12:32 PM
--- NOTE | 2024-05-28 14:49 | History & Physical Report ---
Date of Service May 28, 2024 Assessment & Plan (1) Abdominal pain: Plan #Severe abdominal pain refractory to fentanyl given in the ED #Chronic pain 2/2 chronic low back pain s/p surgery on buprenorphine patch #NAFLD cirrhosis #Liver malignancy c/b pancytopenia -I will cautiously prescribe IV dilaudid and IV tylenol with parameters to hold for respiratory compromise -query etiology, mesenteric ischemia vs. portal vein thrombus vs. other -doppler U/S abd -monitor oxygenation -continue home buprenorphine patch -UA w/cx, blood culture -trend LA #Htn -home meds -prn hydralazine as needed #DM2 on insulin pump -continue home pump #DONNA on CPAP -QHS CPAP #EVA on CKD likely pre-renal -fluids #Seizure d/o #HLD #CVA c/b chronic L hemiparesis #Mood d/o -home meds Fluids, NPO for now, will hold pharmacologic dvt PPX given thrombocytopenia History of Present Illness Chief Complaint: uncontrolled pain Primary Care Provider: Scott Weldon MD 53F pmh seizure d/o, htn, hld, CVA, chronic left hemiparesis, NAFLD cirrhosis, liver malignancy, T2DM on insulin pump, CKD [baseline creatinine of 1.4-1.5], chronic pain on Butrans patch, chronic back pain status post surgery, mood disorder, chronic anemia [baseline hemoglobin of 11], chronic thrombocytopenia, DONNA on CPAP who presents to the ED with severe lower abdominal pain. CT abd without contrast as well as U/S RUQ negative, patient given fentanyl in the ED without resolution of her pain. States this pain is new for her, she has never had it before and is unsure of what is causing it. Has a long history of chronic pain 2/2 chronic back pain s/p surgery for which she is managed by her PCP. She does not currently menstruate, had an ablation which caused that to cease. Of her home medications since she was discharged, she has stopped her atenolol, baclofen and lyrica. Of note was previously seen at this hospital for hypotension/pre-syncope and EVA likely 2/2 excess antihypertensives as well as diarrhea in the setting of viral gastroenteritis. In the ED patient slightly hypoxic to 90% on my evaluation, but RR is normal, and she states that when she gets severe pain she stops breathing to brace herself for the pain. Pain comes in pulses. Allergies Allergy/AdvReac Type Severity Reaction Status Date / Time naproxen Allergy Unknown BLEEDING Verified 08/11/23 20:32 Home Medications Medication Instructions Recorded Confirmed Type albuterol sulfate 90 mcg/actuation 2 puff inhalation Q6 PRN Shortness 08/11/23 05/28/24 History aerosol inhaler Of Breath Or Wheezing atorvastatin 40 mg tablet 40 mg PO DAILYBL 08/11/23 05/28/24 History baclofen 10 mg tablet 10 mg PO TID 08/11/23 05/28/24 History buprenorphine 5 mcg/hour weekly 1 patch topical WK 08/11/23 05/28/24 History transdermal patch dicyclomine 20 mg tablet 20 mg PO HS 08/11/23 05/28/24 History escitalopram oxalate 20 mg tablet 20 mg PO DAILY 08/11/23 05/28/24 History eszopiclone 2 mg tablet 2 mg PO HS 08/11/23 05/28/24 History hydroxyzine HCl 25 mg tablet 25 mg PO UD Anxiety 08/11/23 05/28/24 History insulin regular human 100 unit/mL 0 unit continuous subcutaneous 08/11/23 05/28/24 History injection solution (Novolin R infusion DIRECTED Regular U-100 Insulin) loratadine 10 mg tablet 10 mg PO QAM PRN Other 08/11/23 05/28/24 History magnesium oxide 400 mg PO DAILY 08/11/23 05/28/24 History meclizine 25 mg tablet 25 mg PO TID PRN .dizzy 08/11/23 05/28/24 History metformin 1,000 mg tablet 1,000 mg PO DAILY 08/11/23 05/28/24 History metoclopramide HCl 5 mg tablet 5 mg PO AC PRN Nausea 08/11/23 05/28/24 History naloxone 4 mg/actuation nasal spray 4 mg intranasal DIRECTED PRN 08/11/23 05/28/24 History opiod od ondansetron 8 mg disintegrating 8 mg translingual Q8 PRN Nausea 08/11/23 05/28/24 History tablet pregabalin 100 mg capsule 100 mg PO TID 08/11/23 05/28/24 History trazodone 100 mg tablet 100 - 200 mg PO HS 08/11/23 05/28/24 History pantoprazole 40 mg tablet,delayed 40 mg PO DAILY 02/02/24 05/28/24 History release atenolol 25 mg tablet 25 mg PO BID #60 tabs 02/04/24 05/28/24 Rx furosemide 40 mg tablet 40 mg PO Q OTHER DAY #0 tabs 02/04/24 05/28/24 Rx potassium chloride 10 mEq 20 meq (2 x 10 mEq) PO DAILY #0 02/04/24 05/28/24 Rx tablet,extended release tabs Past Med/Surg History Problem List (Updated 05/11/24 @ 10:01 by Jaun Latham MD) Near syncope Encephalopathy Polypharmacy (Acute) Drowsiness (Acute) Dizziness (Acute) EVA (acute kidney injury) (Acute) Falls (Acute) Abdominal pain (Acute) EVA (acute kidney injury) (Acute) Hypotension (Acute) Hematemesis (Acute) Bright red rectal bleeding (Acute) Abdominal pain (Acute) Acute hypoxemic respiratory failure Hypoxia (Acute) Pneumonia due to COVID-19 virus (Acute) Hypophosphatemia (Acute) Seizure (Acute) Right flank pain (Acute) History of liver cancer (Acute) DVT prophylaxis Seizure (Acute) UTI (urinary tract infection) (Acute) Hypomagnesemia (Acute) Dehydration (Acute) Hyperglycemia (Acute) Rene's paralysis (Acute) Hepatocellular carcinoma Epileptic seizure (Acute) Anemia (Acute) Thrombocytopenia T2DM (type 2 diabetes mellitus) (Chronic) GERD (gastroesophageal reflux disease) (Chronic) Bipolar disorder (Chronic) Chronic pain (Chronic) HTN (hypertension) (Chronic) HLD (hyperlipidemia) (Chronic) Depression (Chronic) DONNA (obstructive sleep apnea) (Chronic) Back pain (Chronic) Liver cirrhosis secondary to MENDEZ (Acute) Medical History (Updated 05/11/24 @ 10:01 by Jaun Latham MD) Stroke Seizure Vertigo Liver cancer H/O TIA (transient ischemic attack) and stroke Hypertension Surgical History History of tubal ligation History of hysterectomy Family History Other No significant family history Social History Smoking Status: Never smoker Tobacco Type: Cigarettes Second Hand Exposure: No; Do You Dip or Chew Tobacco: No; Hx Alcohol Use: No Hx Substance Use: No Preferred Language: Icelandic Communication Ability: Effective Pulp Drier Firer Required: No Beliefs That Will Affect Care: None Current Living Situation: Spouse Current Living Situation Comment: and a son Feels Safe at Home: Yes Assistive Devices: Cane and Glasses Review of Systems Constitutional: + body aches; no fever and no chills Gastrointestinal: + abdominal pain and + cramping; no naus ea Musculoskeletal: + back pain Physical Exam Constitutional: WD/WN, vitals as above appears uncomfortable Gastrointestinal (Abdomen): Percussion/Palpation: + abdomen tender and abdomen soft mainly in the lower abdomen, with some guarding Results & Data Results & Data Vital Signs (Past 12 Hours) Vital Signs Temp Pulse Resp BP Pulse Ox O2 Del Method 05/28/24 14:26 76 05/28/24 13:18 82 18 91 05/28/24 13:00 126/78 05/28/24 13:00 126/78 05/28/24 11:31 117/76 05/28/24 11:08 123/87 05/28/24 10:39 78 14 94 05/28/24 10:33 81 17 95 05/28/24 10:30 141/84 H 05/28/24 10:28 96 Room Air 05/28/24 10:20 77 05/28/24 10:17 36.7 C 81 15 139/91 97 Room Air Laboratory Results Abnormal lab results 05/28/24 05/28/24 Range/Units 10:16 10:32 WBC 4.41 L (4.8-10.8) K/ul RBC 4.01 L (4.20-5.40) M/uL Hgb 11.0 L (12.0-16.0) g/dl POC Hgb 10.9 L (12.0-16.0) g/dl Hct 33.7 L (37.0-47.0) % POC Hct 32 L (37-47) % RDW Std Deviation 53.1 H (36.4-46.3) fL RDW Coeff of Bailey 17.2 H (11.5-14.5) % Plt Count 62 L (130-400) K/uL Lymph # (Auto) 0.87 L (1.20-3.40) K/uL POC BUN 33 H (7-18) mg/dl BUN 33 H (6-23) mg/dl Creatinine 2.09 H (0.6-1.2) mg/dl POC Creatinine 2.0 H (0.6-1.3) mg/dl Glucose 123 H (70-99(Fasting)) mg/dl POC Glucose (other) 119 H (70-99) mg/dl Alkaline Phosphatase 191 H (34-104) U/L Diagnostic Findings Abdomen/Pelvis CT 05/28/24 10:51 EXAM: CT Abdomen and Pelvis Without Intravenous Contrast INDICATION: Right abdominal pain. TECHNIQUE: Axial computed tomography images of the abdomen and pelvis without intravenous contrast. Sagittal and coronal reformatted images were created and reviewed. This CT exam was performed using one or more of the following dose reduction techniques: automated exposure control, adjustment of the mA and/or kV according to patient size, and/or use of iterative reconstruction technique. COMPARISON: 05/10/2024 FINDINGS: Limitations: None. Lung bases: No abnormality noted. Pleural space: No visualized pleural effusion or pneumothorax. Heart: No abnormality noted. Mediastinum: No abnormality noted. ABDOMEN: Liver: Cirrhotic liver unchanged. No visible mass or ductal dilatation. Gallbladder and bile ducts: The gallbladder is mildly distended and may be mildly inflamed. No calcified stones. Pancreas: No pancreatic mass, calcification, inflammation or ductal dilation noted. Spleen: Stable splenomegaly-15.2 cm long. Adrenals: No significant abnormality noted. Kidneys and ureters: Stable mild bilateral perinephric scarring. No stones or hydronephrosis. Stomach and bowel: No change mild increased density in the paracolic fact presumably scarring. No obstruction. No intestinal thickening. PELVIS: Appendix: Well seen and appears normal. Bladder: Appears normal for the degree of filling. No stones or inflammation. No large mass. Masses may not be detected in the absence of opacification. Reproductive: No abnormalities noted. ABDOMEN and PELVIS: Intraperitoneal space: No free air. No significant fluid collection. Bones/joints: No acute changes. Soft tissues: No significant abnormality noted. Vasculature: No abdominal aortic aneurysm. Lymph nodes: No pathologically enlarged lymph nodes. Tubes, lines and devices: Dorsal column electrode terminates in the mid thoracic canal. IMPRESSION: 1. The gallbladder is mildly distended and may be mildly inflamed. No calcified stones. Consider sonography. 2. Cirrhosis and splenomegaly. ACT 112: Negative or not required by law. Electronically signed by Helen Falcon 05-28-2024 11:17 AM Gallbladder Ultrasound 05/28/24 11:28 EXAM:US Abdomen Limited Gallbladder INDICATION: Right abdominal pain. TECHNIQUE: Real-time ultrasound of the gallbladder with image documentation. COMPARISON: No relevant prior studies available. FINDINGS: Liver: Enlarged to 18.1 cm long and is mildly heterogeneous and echogenic. Smooth contour. No ductal dilatation or mass. Gallbladder: No gallstones, wall thickening or surrounding fluid. Common bile duct: No significant abnormality noted. No stones. No dilation. IMPRESSION: 1. Large fatty liver. 2. Normal sonographic appearance of the gallbladder. ACT 112: Negative or not required by law. Electronically signed by Helen Falcon 05-28-2024 12:32 PM
[2024-05-28] MEDS ORDERED: GLUCAGON FOR INJ 1 MG VIAL SQ PRN (14:53)
[2024-05-28] MEDS ORDERED: hydrALAZINE HCL 20 MG/ML VIAL IV PRN (14:53)
[2024-05-28] MEDS ORDERED: GLUCOSE 10 TAB/TUBE PO PRN (14:53)
[2024-05-28] MEDS ORDERED: GLUCOSE 40% GEL 15 GM TUBE PO PRN (14:53)
[2024-05-28] MEDS ORDERED: DEXTROSE 50% 50 ML SYRINGE IV PRN (14:53)
[2024-05-28] MEDS ORDERED: HYDROmorphone INJ 1 MG/ML SYRINGE IV PRN (14:57)
[2024-05-28] MEDS ORDERED: NALOXONE NASAL SPRAY 4 MG ER HOMEPACK PRN (16:08)
[2024-05-28] MEDS ORDERED: METOCLOPRAMIDE HCL 5 MG TABLET PO PRN (16:08)
[2024-05-28] MEDS ORDERED: ALBUTEROL HFA 8 GM INHALER INH PRN (16:08)
[2024-05-28] MEDS ORDERED: MECLIZINE HCL 25 MG TAB PO PRN (16:08)
[2024-05-28] MEDS ORDERED: LORATADINE 10 MG TAB PO PRN (16:08)
[2024-05-28] MEDS: HYDROmorphone INJ 1 MG/ML SYRINGE IV PRN (16:17)
[2024-05-28] MEDS: CHECK BUPRENORPHINE PATCH SCH (16:18)
[2024-05-28] MEDS: SODIUM CHLORIDE 0.9% 1,000 ML IV SCH (16:19)
[2024-05-28] MEDS ORDERED: NALOXONE HCL 0.4 MG/1 ML VIAL/CARP IV PRN (16:33)
[2024-05-28 17:04] LABS: Appearance Urine Clear (Clear); Bacteria Urine Automated None Seen (None Seen); Bilirubin Urine Negative (Negative); Blood Urine Negative (Negative); Color Urine Yellow; Glucose Urine UA Negative (Negative); Ketones Urine Trace (Negative); Leukocyte Esterase Urine 2+ (Negative); Nitrite Urine Negative (Negative); Protein Urine Negative (Negative); RBC Urine Automated 0-2 /hpf (0-2); Urobilinogen Urine Negative (Negative); WBC Urine Automated 21-50 /hpf (0-5)
[2024-05-28] MEDS: DEXTROSE 5% 1,000 ML IV SCH (17:17)
[2024-05-28] MEDS ORDERED: INSULIN ASPART 100 UNITS/ML VIAL SC PRN (17:24)
[2024-05-28] MEDS ORDERED: PHARMACY GLYCEMIC MGMT CONSULT PRN (17:26)
[2024-05-28] MEDS ORDERED: cefTRIAXone SODIUM 1,000 MG/50 ML BAG IV SCH (18:00)
[2024-05-28] MEDS: INSULIN, Rapid-Acting PUMP SC SCH (18:22)
[2024-05-28] MEDS: ACETAMINOPHEN 1,000 MG/100 ML VIAL IV PRN (18:27)
[2024-05-28] MEDS: cefTRIAXone SODIUM 2,000 MG/50 ML BAG IV SCH (19:08)
[2024-05-28] MEDS: DICYCLOMINE HCL 20 MG TAB PO SCH (20:42)
[2024-05-28] MEDS: hydrOXYzine HCl 25 MG TAB PO PRN (21:00)
[2024-05-28] MEDS ORDERED: NON-FORMULARY MEDICATION (Eszopiclone 2 mg tablet) PO SCH (21:00)
[2024-05-28] MEDS ORDERED: MELATONIN 3 MG TAB PO PRN (21:05)
[2024-05-29] MEDS: traZODone HCL 100 MG TAB PO SCH (01:13)
[2024-05-29 06:45] LABS: Basophils # (auto) 0.03 K/uL (0.00-0.20); Basophils % (auto) 0.8 %; Eosinophils # (auto) 0.17 K/uL (0.00-0.50); Eosinophils % (auto) 4.6 %; Hemoglobin 9.9 g/dl (12.0-16.0); Immature Granulocytes # (auto) 0.01 K/uL (0.01-0.20); Immature Granulocytes % (auto) 0.3 %; Lymphocytes # (auto) 0.85 K/uL (1.20-3.40); Lymphocytes % (auto) 23.1 %; Mean Corpuscular Hgb Conc 31.9 g/dL (32.0-36.0); Mean Corpuscular Volume 84.5 fL (80.0-100.0); Mean Platelet Volume 9.9 fL (9.4-12.4); Monocytes # (auto) 0.35 K/uL (0.11-0.59); Monocytes % (auto) 9.5 %; Neutrophils # (auto) 2.27 K/uL (1.40-6.50); Neutrophils % (auto) 61.7 %; Platelet Count 55 K/uL (130-400); RDW Coefficient of Variation 16.7 % (11.5-14.5); RDW Standard Deviation 51.7 fL (36.4-46.3); Red Blood Count 3.67 M/uL (4.20-5.40); White Blood Count 3.68 K/ul (4.8-10.8)
[2024-05-29 07:07] LABS: Albumin Level 3.1 gm/dl (3.4-5.0); BUN Creatinine Ratio 17.8 (10-20); Bilirubin,Total 0.4 mg/dl (0.2-1.0); Calcium 8.2 mg/dl (8.6-10.3); Creatinine Clr Calc Pharmacy 58.9 ml/min; Globulin 3.1 gm/dl (2.5-4.0); Magnesium 1.6 mg/dl (1.7-2.4); Phosphorus 4.2 mg/dl (2.5-4.9); Potassium 4.5 mmol/L (3.5-5.1); Total Protein 6.2 gm/dl (6.0-8.3)
--- NOTE | 2024-05-29 07:48 | Hospitalist Progress Note ---
Date of Service May 29, 2024 Assessment & Plan (1) Abdominal pain: Plan Ms. Tyson is a 53-year-old lady with PMH of seizure disorder, HTN, HLD, CVA, chronic left hemiparesis, NAFLD cirrhosis, liver malignancy, T2DM on insulin pump, CKD [baseline creatinine of 1.4-1.5], chronic pain on Butrans patch, chronic back pain status post surgery, mood disorder, chronic anemia [baseline hemoglobin of 11], chronic thrombocytopenia, DONNA on CPAP admitted for severe lower abdominal pain CT imaging unrevealing outside of questionable gallbladder. US of gallbladder was normal. Mesenteric US poor quality Will trial regimen previosuly that worked in 01/2024. Patient with relief on scheduled reglan but never continued as op #pancytopenia with chronic thrombocytopenia history of cirrhosis, malignancy will order anemia studies and smear #Severe abdominal pain refractory to fentanyl given in the ED #Chronic pain 2/2 chronic low back pain s/p surgery on buprenorphine patch #NAFLD cirrhosis #Liver malignancy c/b pancytopenia -query etiology, mesenteric ischemia vs. portal vein thrombus vs. other -History of extensive work up including EGD previously in 03/202424 Grade II esophageal varices with no bleeding and no stigmata of recent bleeding. - Portal hypertensive gastropathy. - Several endoclips were found in the stomach from prior endoscopic mucosal resection. - Multiple gastric polyps. Three polyps were Resected and retrieved. - Normal examined duodenum. -continue home buprenorphine patch -UA w/cx WNL, no need for abx (asymptomatic) Previously seen by GI for similar concerns -can start her on reglan 5mg ACHS and see how she does. - start with protonix 40mg IV bid. #Htn -home meds -prn hydralazine as needed #DM2 on insulin pump -continue home pump #DONNA on CPAP -QHS CPAP #EVA on CKD likely pre-renal -fluids #Seizure d/o #HLD #CVA c/b chronic L hemiparesis #Mood d/o -home meds Advance diet as tolerated SCDS CTM Admission and Anticipated Discharge Date Admission Date: May 28, 2024 Subjective Evaluated at bedside reports pain she feels is the same discomfort she has previously felt and been evaluated for and recalls the discomfort resolved with reglan She notes that the pain didn't go away with opioids entirely Denies any nausea or other concerns Physical Exam Constitutional: WD/WN, vitals as above Respiratory: normal respiratory effort, lungs clear to auscultation Cardiovascular: RRR, no murmur, no edema Gastrointestinal (Abdomen): normal bowel sounds, soft, nontender, no hepatosplenomegaly Results & Data Results & Data Vital Signs (Past 12 Hours) Vital Signs Temp Pulse Pulse Resp BP Pulse Ox O2 Del Method 05/29/24 03:22 36.7 C 73 18 100/74 91 Room Air 05/28/24 22:42 36.6 C 76 18 128/67 94 Room Air 05/28/24 21:48 76 Diagnostic Findings reviewed mesenteric us which was not revealing reviewed gallbladder us with normal gallbladder Medications Administered Home Medications Medication Instructions Recorded Confirmed Last Taken albuterol sulfate 90 mcg/actuation 2 puff inhalation Q6 PRN Shortness 08/11/23 05/28/24 Unknown aerosol inhaler Of Breath Or Wheezing atorvastatin 40 mg tablet 40 mg PO DAILYBL 08/11/23 05/28/24 05/09/24 baclofen 10 mg tablet 10 mg PO TID 08/11/23 05/28/24 05/10/24 buprenorphine 5 mcg/hour weekly 1 patch topical WK 08/11/23 05/28/24 Unknown transdermal patch dicyclomine 20 mg tablet 20 mg PO HS 08/11/23 05/28/24 05/09/24 escitalopram oxalate 20 mg tablet 20 mg PO DAILY 08/11/23 05/28/24 05/10/24 eszopiclone 2 mg tablet 2 mg PO HS 08/11/23 05/28/24 05/09/24 hydroxyzine HCl 25 mg tablet 25 mg PO UD Anxiety 08/11/23 05/28/24 05/10/24 insulin regular human 100 unit/mL 0 unit continuous subcutaneous 08/11/23 05/28/24 Unknown injection solution (Novolin R infusion DIRECTED Regular U-100 Insulin) loratadine 10 mg tablet 10 mg PO QAM PRN Other 08/11/23 05/28/24 Unknown magnesium oxide 400 mg PO DAILY 08/11/23 05/28/24 05/10/24 meclizine 25 mg tablet 25 mg PO TID PRN .dizzy 08/11/23 05/28/24 Unknown metformin 1,000 mg tablet 1,000 mg PO DAILY 08/11/23 05/28/2424 metoclopramide HCl 5 mg tablet 5 mg PO AC PRN Nausea 08/11/23 05/28/24 Unknown naloxone 4 mg/actuation nasal spray 4 mg intranasal DIRECTED PRN 08/11/23 05/28/24 Unknown opiod od ondansetron 8 mg disintegrating 8 mg translingual Q8 PRN Nausea 08/11/23 05/28/24 Unknown tablet pregabalin 100 mg capsule 100 mg PO TID 08/11/23 05/28/24 05/10/24 trazodone 100 mg tablet 100 - 200 mg PO HS 08/11/23 05/28/24 05/09/24 pantoprazole 40 mg tablet,delayed 40 mg PO DAILY 02/02/24 05/28/24 05/10/24 release atenolol 25 mg tablet 25 mg PO BID #60 tabs 02/04/24 05/28/24 05/10/24 furosemide 40 mg tablet 40 mg PO Q OTHER DAY #0 tabs 02/04/24 05/28/24 05/10/24 potassium chloride 10 mEq 20 meq (2 x 10 mEq) PO DAILY #0 02/04/24 05/28/24 05/10/24 tablet,extended release tabs Active Medications Generic Name Dose Route Start Last Admin Trade Name Freq PRN Reason Stop Dose Admin Atorvastatin Calcium 40 mg 05/29/24 10:30 05/29/24 09:02 Atorvastatin 40 Mg Tab PO 06/28/24 10:29 40 mg DAILYBL MARCIA Administration Dicyclomine HCl 20 mg 05/28/24 21:00 05/28/24 20:42 Dicyclomine Hcl 20 Mg Tab PO 06/27/24 20:59 20 mg HS MARCIA Administration Escitalopram Oxalate 20 mg 05/29/24 09:00 05/29/24 09:05 Escitalopram Oxalate 20 Mg Tab PO 06/28/24 08:59 20 mg DAILY MARCIA Administration Furosemide 40 mg 05/29/24 09:00 05/29/24 09:04 Furosemide 40 Mg Tab PO 06/28/24 08:59 40 mg Q2D MARCIA Administration Hydromorphone HCl 1 mg 05/28/24 15:04 05/29/24 14:03 Hydromorphone Inj 1 Mg/Ml Syringe IV 06/11/24 15:03 1 mg Q6H PRN Administration Pain Hydroxyzine HCl 50 mg 05/28/24 16:08 05/29/24 09:03 Hydroxyzine Hcl 25 Mg Tab PO 06/27/24 16:07 50 mg TID PRN Administration Anxiety Acetaminophen 1,000 mg in 100 mls @ 400 mls/hr 05/28/24 14:57 05/29/24 11:54 Ofirmev IV 05/31/24 14:56 Infused Q8H PRN Infusion Severe Pain (Scale 7, 8, 9,10) Sodium Chloride 1,000 mls @ 125 mls/hr 05/28/24 15:00 05/28/24 17:14 Nss IV 06/27/24 14:59 Infused .Q8H MARCIA Infusion Dextrose 1,000 mls @ 125 mls/hr 05/28/24 17:00 05/29/24 09:13 D5w IV 05/29/24 16:59 125 mls/hr .Q8H MARCIA Administration Ceftriaxone Sodium 2,000 mg in 50 mls @ 100 mls/hr 05/28/24 18:00 05/28/24 19:39 Rocephin IV 05/30/24 17:59 Infused Q24H MARCIA Infusion Insulin Aspart 1 each 05/28/24 17:30 05/29/24 12:18 Insulin, Rapid-Acting Pump SC 06/27/24 17:29 1 each ACHS MARCIA Administration Protocol Magnesium Oxide 400 mg 05/29/24 09:00 05/29/24 09:10 Magnesium Oxide 400 Mg Tab PO 06/28/24 08:59 400 mg DAILY MARCIA Administration Metoclopramide HCl 5 mg 05/29/24 11:30 05/29/24 11:40 Metoclopramide Hcl 5 Mg Tablet PO 06/28/24 11:29 5 mg ACHS MARCIA Administration Miscellaneous 1 each 05/28/24 16:08 05/29/24 08:45 Check Buprenorphine Patch N/A 06/27/24 16:07 1 each QS MARCIA Administration Ondansetron HCl 8 mg 05/28/24 16:08 05/29/24 08:47 Ondansetron 8mg Od Tab PO 06/27/24 16:07 8 mg Q8 PRN Administration Nausea Pantoprazole Sodium 40 mg 05/29/24 09:00 05/29/24 09:05 Pantoprazole 40 Mg Tab PO 06/28/24 08:59 40 mg DAILY MARCIA Administration Potassium Chloride 20 meq 05/29/24 09:00 05/29/24 09:10 Potassium Chloride Crtab 20 Meq Tabcr PO 06/28/24 08:59 20 meq DAILY MARCIA Administration Trazodone HCl 200 mg 05/28/24 21:00 05/29/24 01:13 Trazodone Hcl 100 Mg Tab PO 06/27/24 20:59 200 mg HS MARCIA Administration
--- NOTE | 2024-05-29 08:18 | Ultrasound Report ---
EXAM: US duplex mesenteric CLINICAL HISTORY: Severe abdominal pain. TECHNIQUE: An ultrasound Doppler examination of the aorta and mesenteric arteries was performed. Scanning was performed with the patient in the supine position. COMPARISON: None available. FINDINGS: Suboptimal study due to excessive bowel gases and patient body habitus. The abdominal aorta, celiac artery, mesenteric arteries, and bilateral common iliac arteries are not visualized properly in the available images due to excessive bowel gases. The visualised left lobe of the liver showed cirrhotic parenchyma IMPRESSION: 1. Suboptimal study due to excessive bowel gases and patient body habitus. 2. The abdominal aorta, celiac artery, mesentric arteries and bilateral common iliac arteries are not visualised properly in the availabe images due to excessive bowel gases. 3. Visualised left lobe of liver showed cirrhotic parenchyma RECOMMENDATIONS: Clinical correlation with symptoms and further evaluation by CT angiography abdomen/pelvis if indicated. Electronically signed by Ben Schultz 05-29-2024 08:18 AM
[2024-05-29] MEDS: ONDANSETRON 8MG OD TAB PO PRN (08:47)
[2024-05-29] MEDS ORDERED: BUPRENORPHINE 5 MCG/HR TDSY TD SCH (09:00)
[2024-05-29] MEDS ORDERED: Nursing to Pharmacy Communication SCH (09:00)
[2024-05-29] MEDS: ATORVASTATIN 40 MG TAB PO SCH (09:02)
[2024-05-29] MEDS: FUROSEMIDE 40 MG TAB PO SCH (09:04)
[2024-05-29] MEDS: PANTOprazole 40 MG TAB PO SCH (09:05)
[2024-05-29] MEDS: ESCITALOPRAM OXALATE 20 MG TAB PO SCH (09:05)
[2024-05-29] MEDS: POTASSIUM CHLORIDE CRTAB 20 MEQ TABCR PO SCH (09:10)
[2024-05-29] MEDS: MAGNESIUM OXIDE 400 MG TAB PO SCH (09:10)
[2024-05-29] MEDS: METOCLOPRAMIDE HCL INJ 5 MG/ML 2 ML VIAL IV ONE (10:14)
[2024-05-29] MEDS: METOCLOPRAMIDE HCL 5 MG TABLET PO SCH (11:40)
[2024-05-29] MEDS ORDERED: HYDROmorphone INJ 1 MG/ML SYRINGE IV PRN (14:19)
[2024-05-29] MEDS ORDERED: Continuous Glucose Monitor SCH ×2 (16:30)
[2024-05-29] MEDS: Continuous Glucose Monitor SCH (17:04)
[2024-05-29] MEDS: MAGNESIUM SULFATE / D5W 1 GM/100 ML BAG IV ONE (17:07)
[2024-05-29] MEDS: CARBOHYDRATES FOR HYPOGLYCEMIA PO PRN (18:48)
[2024-05-29] MEDS ORDERED: GLUCOSE 40% GEL 15 GM TUBE PO PRN (19:53)
[2024-05-29] MEDS ORDERED: GLUCOSE 10 TAB/TUBE PO PRN (19:53)
[2024-05-29] MEDS ORDERED: GLUCAGON FOR INJ 1 MG VIAL SQ PRN (19:53)
[2024-05-29] MEDS ORDERED: PHARMACY GLYCEMIC MGMT CONSULT PRN (19:53)
[2024-05-29] MEDS ORDERED: CARBOHYDRATES FOR HYPOGLYCEMIA PO PRN (19:53)
[2024-05-29] MEDS ORDERED: DEXTROSE 50% 50 ML SYRINGE IV PRN (19:53)
[2024-05-29] MEDS: PANTOprazole 40 MG/10 ML SYR IV SCH (20:26)
[2024-05-29] MEDS: INSULIN ASPART PER UNIT CHARGE SC SCH (20:41)
[2024-05-30] MEDS ORDERED: DEXTROSE 50% 50 ML SYRINGE IV PRN (07:44)
[2024-05-30] MEDS ORDERED: CARBOHYDRATES FOR HYPOGLYCEMIA PO PRN (07:44)
[2024-05-30] MEDS: PROCHLORPERAZINE 5 MG in SYRINGE 4 ML IV ONE (08:06)
[2024-05-30 08:10] LABS: Hemoglobin 10.8 g/dl (12.0-16.0); Mean Corpuscular Hemoglobin 27.3 pg (25.0-34.0); Mean Corpuscular Hgb Conc 32.7 g/dL (32.0-36.0); Mean Corpuscular Volume 83.3 fL (80.0-100.0); Mean Platelet Volume 9.5 fL (9.4-12.4); Platelet Count 52 K/uL (130-400); RDW Coefficient of Variation 16.5 % (11.5-14.5); RDW Standard Deviation 50.1 fL (36.4-46.3); Red Blood Count 3.96 M/uL (4.20-5.40); White Blood Count 4.22 K/ul (4.8-10.8)
[2024-05-30 08:26] LABS: BUN Creatinine Ratio 11.9 (10-20); Calcium 8.4 mg/dl (8.6-10.3); Creatinine Clr Calc Pharmacy 58.8 ml/min; Magnesium 1.6 mg/dl (1.7-2.4); Phosphorus 3.6 mg/dl (2.5-4.9); Potassium 4.9 mmol/L (3.5-5.1)
[2024-05-30 08:30] VITALS: BP 136/88; PULSE 83; RESP 18; TEMP 98.1; O2SAT 95
[2024-05-30] MEDS ORDERED: INSULIN HUMAN REGULAR SC PRN (08:43)
[2024-05-30] MEDS ORDERED: INSULIN, Regular PUMP SC SCH ×2 (08:45→11:30)
[2024-05-30 08:46] LABS: Ferritin 196.6 ng/ml (8-388)
[2024-05-30 08:53] LABS: Folate (Folic Acid),Ser orPlas 11.71 ng/ml (>5.38)
--- NOTE | 2024-05-30 09:23 | Gastrointestinal Consultation ---
Date of Consultation May 30, 2024 Assessment & Plan (1) NAFLD (nonalcoholic fatty liver disease): Plan 53 year old female w/ history of HTN, dyslipidemia, CVA, chronic left hemiparesis, NAFLD cirrhosis MELD 10, T2DM on insulin pump, CKD, chronic pain on Butrans patch, s/p back surgery, mood disorder, chronic anemia and chronic thrombocytopenia, DONNA on CPAP admitted through the ED w/ abd pain and nausea. Pain, nausea and decreased appetite have been chronic, undergoing outpatient evaluation. An EGD in 2018 showed a large amount of food in stomach. If not previously arranged, recommend a GES to rule out gastroparesis. She is requesting discharge when I evaluated her this AM as she is feeling improved. Anti-emetics PRN. Bowel regimen to avoid constipation, Miralax 1 capful daily. Low fiber/residue diet as tolerated. Smaller more frequent meals. She follows w/ [facility]. MELD labs every 6 months. ABD imaging w/ AFP every 6 months. EGD every 1-2 years. No ETOH. No NSAIDs. Avoid hepatotoxin. Low NA diet, less than 2G daily. Less than 2G acetaminophen containing products daily. I spent a total of 60 minutes on the date of service in review of patient's record, and previously obtained information in person and appropriate medical visit, discussion and education of plan, with patient and/or caregiver, placing orders for tests/referral/procedures as medically necessary and documentation of pertinent clinical information in patient's medical records for their visit today. Supervising Physician Co-Signing Physician Notes Patient was discharged before I could personally see her myself however patient was evaluated by the [facility] and in discussion with her I agree with her evaluation but did not physically see the patient History of Present Illness Reason for Consultation: persistent nausea Requesting Physician: Irma Johnson MD Attending Physician: Irma Johnson MD History of Present Illness 53 year old female w/ history of HTN, dyslipidemia, CVA, chronic left hemiparesis, NAFLD cirrhosis, T2DM on insulin pump, CKD, chronic pain on Butrans patch, s/p back surgery, mood disorder, chronic anemia and chronic thrombocytopenia, DONNA on CPAP admitted through the ED w/ abd pain and nausea. GI was asked to evaluate. She endorses decreased appetite and nausea for many years. Largely unchanged. She notes abd pain developed around February and has been more or less intermittent. Reports bilateral lower abd cramping. Not associated w/ oral intake. Sometime associated w/ need to move her bowels. Occasional constipation. No black or bloody stools. MELD 10 Mesenteric US 2023: Suboptimal study due to excessive bowel gases and patient body habitus. The abdominal aorta, celiac artery, mesentric arteries and bilateral common iliac arteries are not visualised properly in the availabe images due to excessive bowel gases. ABD US 2023: Large fatty liver. Normal sonographic appearance of the gallbladder. CTAP 2023: The gallbladder is mildly distended and may be mildly inflamed. No calcified stones. Consider sonography. Cirrhosis and splenomegaly. HIDA 2023: ordered at [facility], not yet obtained ABD US 2023: Nonspecific mild gallbladder wall thickening. Nonspecific hepatic findings compatible with patient's clinical diagnosis of cirrhosis EGD 2023: Grade II esophageal varices with no bleeding and no stigmata of rec ent bleeding. - Portal hypertensive gastropathy. - Several endoclips were found in the stomach from prior endoscopic mucosal resection. - Multiple gastric polyps. Three polyps were Resected and retrieved. - Normal examined duodenum. EGD 2023: Grade II esophageal varices with no bleeding and no stigmata of recent bleeding. - Portal hypertensive gastropathy. - Multiple gastric polyps. Resected and retrieved. Clips (MR conditional) were placed. - Normal examined duodenum. Colonoscopy 2023: Hemorrhoids found on perianal exam. - The examined portion of the ileum was normal. - One 5 mm polyp in the cecum, removed with a hot snare. Resected and retrieved. Clip (MR conditional) was placed. - One 3 mm polyp in the rectum, removed with a cold sn are. Resected and retrieved. - Internal hemorrhoids. - The examination was otherwise normal. Allergies Allergy/AdvReac Type Severity Reaction Status Date / Time naproxen Allergy Unknown BLEEDING Verified 08/11/23 20:32 Home Medications Medication Instructions Recorded Confirmed Type albuterol sulfate 90 mcg/actuation 2 puff inhalation Q6 PRN Shortness 08/11/23 05/28/24 History aerosol inhaler Of Breath Or Wheezing atorvastatin 40 mg tablet 40 mg PO DAILYBL 08/11/23 05/28/24 History baclofen 10 mg tablet 10 mg PO TID 08/11/23 05/28/24 History buprenorphine 5 mcg/hour weekly 1 patch topical WK 08/11/23 05/28/24 History transdermal patch dicyclomine 20 mg tablet 20 mg PO HS 08/11/23 05/28/24 History escitalopram oxalate 20 mg tablet 20 mg PO DAILY 08/11/23 05/28/24 History eszopiclone 2 mg tablet 2 mg PO HS 08/11/23 05/28/24 History hydroxyzine HCl 25 mg tablet 25 mg PO UD Anxiety 08/11/23 05/28/24 History insulin regular human 100 unit/mL 0 unit continuous subcutaneous 08/11/2305/28 History injection solution (Novolin R infusion DIRECTED Regular U-100 Insulin) loratadine 10 mg tablet 10 mg PO QAM PRN Other 08/11/23 05/28/24 History magnesium oxide 400 mg PO DAILY 08/11/23 05/28/24 History meclizine 25 mg tablet 25 mg PO TID PRN .dizzy 08/11/23 05/28/24 History metformin 1,000 mg tablet 1,000 mg PO DAILY 08/11/23 05/28/24 History naloxone 4 mg/actuation nasal spray 4 mg intranasal DIRECTED PRN 08/11/23 05/28/24 History opiod od ondansetron 8 mg disintegrating 8 mg translingual Q8 PRN Nausea 08/11/23 05/28/24 History tablet pregabalin 100 mg capsule 100 mg PO TID 08/11/23 05/28/24 History trazodone 100 mg tablet 100 - 200 mg PO HS 08/11/23 05/28/24 History pantoprazole 40 mg tablet,delayed 40 mg PO DAILY 02/02/24 05/28/24 History release atenolol 25 mg tablet 25 mg PO BID #60 tabs 02/04/24 05/28/24 Rx furosemide 40 mg tablet 40 mg PO Q OTHER DAY #0 tabs 02/04/24 05/28/24 Rx potassium chloride 10 mEq 20 meq (2 x 10 mEq) PO DAILY #0 02/04/24 05/28/24 Rx tablet,extended release tabs metoclopramide HCl 5 mg tablet 5 mg PO ACHS 30 days #90 tabs 05/30/24 Rx prochlorperazine maleate 5 mg 5 mg PO Q6H PRN nausea and 05/30/24 Rx tablet vomiting #60 tabs Patient History Medical History (Updated 05/28/24 @ 15:44 by Gabriel Oliver MD) Stroke Seizure Vertigo Liver cancer H/O TIA (transient ischemic attack) and stroke Hypertension Surgical History History of tubal ligation History of hysterectomy Family History Other No significant family history Social History Smoking Status: Never smoker Tobacco Type: Cigarettes Second Hand Exposure: No; Do You Dip or Chew Tobacco: No; Hx Alcohol Use: No Hx Substance Use: No Preferred Language: Georgian Communication Ability: Effective Water Maintenance Supervisor Required: No Beliefs That Will Affect Care: None Current Living Situation: Family Current Living Situation Comment: and a son Feels Safe at Home: Yes Assistive Devices: Cane Review of Systems Review of Systems: All other findings negative except as noted in HPI. Physical Exam Constitutional: WD/WN, vitals as above Respiratory: normal respiratory effort, lungs clear to auscultation Cardiovascular: Rate/Rhythm: regular rate and regular rhythm Gastrointestinal (Abdomen): normal bowel sounds, soft, nontender, no hepatosplenomegaly Skin: no rashes, warm and dry Results & Data Vital Signs (Past 12 Hours) Vital Signs Temp Pulse Pulse Resp BP Pulse Ox O2 Del Method 05/30/24 08:26 36.7 C 83 18 136/88 95 Nasal Cannula 05/30/24 07:21 90 05/30/24 03:09 36.8 C 86 14 133/82 97 Room Air 05/29/24 23:24 36.6 C 83 16 111/69 94 Room Air 05/29/24 21:44 79 O2 Flow Rate 05/30/24 08:26 1.0 05/30/24 07:21 05/30/24 03:09 05/29/24 23:24 05/29/24 21:44 Laboratory Results 05/30/24 05/30/24 05/29/24 Range/Units 07:48 07:23 19:05 WBC 4.22 L (4.8-10.8) K/ul RBC 3.96 L (4.20-5.40) M/uL Hgb 10.8 L (12.0-16.0) g/dl Hct 33.0 L (37.0-47.0) % MCV 83.3 (80.0-100.0) fL MCH 27.3 (25.0-34.0) pg MCHC 32.7 (32.0-36.0) g/dL RDW Std Deviation 50.1 H (36.4-46.3) fL RDW Coeff of Bailey 16.5 H (11.5-14.5) % Plt Count 52 L (130-400) K/uL MPV 9.5 (9.4-12.4) fL Peripher Smr Path Cons Pending Sodium 141 (136-145) mmol/L Potassium 4.9 (3.5-5.1) mmol/L Chloride 103 (98-107) mmol/L Carbon Dioxide 33 H (21-32) mmol/L Anion Gap 5 (3-11) BUN 16 (6-23) mg/dl Creatinine 1.34 H (0.6-1.2) mg/dl Est Cr Clr Drug Dosing 58.8 ml/min eGFR 48.01 BUN/Creatinine Ratio 11.9 (10-20) Glucose 104 H (70-99(Fasting)) mg/dl POC Glucose 93 102 H (70-99) mg/dl Calcium 8.4 L (8.6-10.3) mg/dl Phosphorus 3.6 (2.5-4.9) mg/dl Magnesium 1.6 L (1.7-2.4) mg/dl Iron 46 (35-150) mcg/dl TIBC 284 (250-450) mcg/dl Transferrin 203 (200-360) mg/dl Transferrin % Sat 16 (15-50) % Ferritin 196.6 (8-388) ng/ml Vitamin B12 265 (180-914) pg/ml Folate 11.71 (>5.38) ng/ml 05/29/24 Range/Units 18:46 WBC (4.8-10.8) K/ul RBC (4.20-5.40) M/uL Hgb (12.0-16.0) g/dl Hct (37.0-47.0) % MCV (80.0-100.0) fL MCH (25.0-34.0) pg MCHC (32.0-36.0) g/dL RDW Std Deviation (36.4-46.3) fL RDW Coeff of Bailey (11.5-14.5) % Plt Count (130-400) K/uL MPV (9.4-12.4) fL Peripher Smr Path Cons Sodium (136-145) mmol/L Potassium (3.5-5.1) mmol/L Chloride (98-107) mmol/L Carbon Dioxide (21-32) mmol/L Anion Gap (3-11) BUN (6-23) mg/dl Creatinine (0.6-1.2) mg/dl Est Cr Clr Drug Dosing ml/min eGFR BUN/Creatinine Ratio (10-20) Glucose (70-99(Fasting)) mg/dl POC Glucose 56 L* (70-99) mg/dl Calcium (8.6-10.3) mg/dl Phosphorus (2.5-4.9) mg/dl Magnesium (1.7-2.4) mg/dl Iron (35-150) mcg/dl TIBC (250-450) mcg/dl Transferrin (200-360) mg/dl Transferrin % Sat (15-50) % Ferritin (8-388) ng/ml Vitamin B12 (180-914) pg/ml Folate (>5.38) ng/ml PG Care Time/CCT Total # of Minutes Spent Total Time Spent with Patient: Total time spent is greater than 50% in coordination of care (as documented) at patient's floor/unit and/or counseling patient: Coding Level of Care Code 47347 INT INP/OBS CARE 2/55MIN Diagnoses NAFLD (nonalcoholic fatty liver disease) K76.0
[2024-05-30] MEDS ORDERED: PROCHLORPERAZINE MALEATE 5 MG TAB PO PRN (09:28)
[2024-05-30] MEDS: ATENOLOL 25 MG TABLET PO SCH (10:35)
[2024-05-30] MEDS ORDERED: Continuous Glucose Monitor SCH ×2 (11:30)
[2024-05-30] MEDS: INSULIN ASPART PER UNIT CHARGE SC SCH (12:02)
--- NOTE | 2024-05-30 13:36 | Discharge Summary ---
Discharge Summary Date of Service May 30, 2024 Principal Dx & Hospital Course #1 = Principal Diagnosis (1) Abdominal pain: Plan Ms. yTson is a 53-year-old lady with PMH of seizure disorder, HTN, HLD, CVA, chronic left hemiparesis, NAFLD cirrhosis, liver malignancy, T2DM on insulin pump, CKD [baseline creatinine of 1.4-1.5], chronic pain on Butrans patch, chronic back pain status post surgery, mood disorder, chronic anemia [baseline hemoglobin of 11], chronic thrombocytopenia, DONNA on CPAP admitted for severe lower abdominal pain CT imaging unrevealing outside of questionable gallbladder. US of gallbladder was normal. Mesenteric US poor quality Patient did well with regimen previously that worked in 01/2024. Patient with relief on scheduled reglan but never continued as op--encouraged conitnuing this regimen. GI evaluated patient--recommends follow up with OP services and continue prn antiemetic On day of discharge, pain resolved, patient tolerating diet without difficult and eager for discharge home. Patient verbalized understanding of considering a low fiber diet and the need to follow up with GES #pancytopenia with chronic thrombocytopenia history of cirrhosis, malignancy will order anemia studies and smear #Severe abdominal pain refractory to fentanyl given in the ED #Chronic pain 2/2 chronic low back pain s/p surgery on buprenorphine patch #NAFLD cirrhosis #Liver malignancy c/b pancytopenia -query etiology, mesenteric ischemia vs. portal vein thrombus vs. other -History of extensive work up including EGD previously in 03/202424 Grade II esophageal varices with no bleeding and no stigmata of recent bleeding. - Portal hypertensive gastropathy. - Several endoclips were found in the stomach from prior endoscopic mucosal resection. - Multiple gastric polyps. Three polyps were Resected and retrieved. - Normal examined duodenum. -continue home buprenorphine patch -UA w/cx WNL, no need for abx (asymptomatic) Previously seen by GI for similar concerns -continue with reglan 5mg ACHS Follow up OP GI #Htn -home meds -prn hydralazine as needed #DM2 on insulin pump -continue home pump #DONNA on CPAP -QHS CPAP #EVA on CKD likely pre-renal -fluids #Seizure d/o #HLD #CVA c/b chronic L hemiparesis #Mood d/o -home meds Notes For Next Care Provider Medication Changes From Visit Prochlorperazine 5mg q6h prn Metochlorpromide 5mg ACHS Admission HPI Per Admitting Provider 53F pmh seizure d/o, htn, hld, CVA, chronic left hemiparesis, NAFLD cirrhosis, liver malignancy, T2DM on insulin pump, CKD [baseline creatinine of 1.4-1.5], chronic pain on Butrans patch, chronic back pain status post surgery, mood disorder, chronic anemia [baseline hemoglobin of 11], chronic thrombocytopenia, DONNA on CPAP who presents to the ED with severe lower abdominal pain. CT abd without contrast as well as U/S RUQ negative, patient given fentanyl in the ED without resolution of her pain. States this pain is new for her, she has never had it before and is unsure of what is causing it. Has a long history of chronic pain 2/2 chronic back pain s/p surgery for which she is managed by her PCP. She does not currently menstruate, had an ablation which caused that to cease. Of her home medications since she was discharged, she has stopped her atenolol, baclofen and lyrica. Of note was previously seen at this hospital for hypotension/pre-syncope and EVA likely 2/2 excess antihypertensives as well as diarrhea in the setting of viral gastroenteritis. In the ED patient slightly hypoxic to 90% on my evaluation, but RR is normal, and she states that when she gets severe pain she stops breathing to brace herself for the pain. Pain comes in pulses. Admission Exam Per Admitting Provider Constitutional: WD/WN, vitals as above appears uncomfortable Gastrointestinal (Abdomen): Percussion/Palpation: + abdomen tender and abdomen soft mainly in the lower abdomen, with some guarding Discharge Exam Constitutional WD/WN, vitals as above Respiratory normal respiratory effort, lungs clear to auscultation Cardiovascular RRR, no murmur, no edema Gastrointestinal (Abdomen) normal bowel sounds, soft, nontender, no hepatosplenomegaly Updated Medication List Medication Instructions Recorded Confirmed Type albuterol sulfate 90 mcg/actuation 2 puff inhalation Q6 PRN Shortness 08/11/23 05/28/24 History aerosol inhaler Of Breath Or Wheezing atorvastatin 40 mg tablet 40 mg PO DAILYBL 08/11/23 05/28/24 History baclofen 10 mg tablet 10 mg PO TID 08/11/23 05/28/24 History buprenorphine 5 mcg/hour weekly 1 patch topical WK 08/11/23 05/28/24 History transdermal patch dicyclomine 20 mg tablet 20 mg PO HS 08/11/23 05/28/24 History escitalopram oxalate 20 mg tablet 20 mg PO DAILY 08/11/23 05/28/24 History eszopiclone 2 mg tablet 2 mg PO HS 08/11/23 05/28/24 History hydroxyzine HCl 25 mg tablet 25 mg PO UD Anxiety 08/11/23 05/28/24 History insulin regular human 100 unit/mL 0 unit continuous subcutaneous 08/11/23 05/28/24 History injection solution (Novolin R infusion DIRECTED Regular U-100 Insulin) loratadine 10 mg tablet 10 mg PO QAM PRN Other 08/11/23 05/28/24 History magnesium oxide 400 mg PO DAILY 08/11/23 05/28/24 History meclizine 25 mg tablet 25 mg PO TID PRN .dizzy 08/11/23 05/28/24 History metformin 1,000 mg tablet 1,000 mg PO DAILY 08/11/23 05/28/24 History naloxone 4 mg/actuation nasal spray 4 mg intranasal DIRECTED PRN 08/11/23 05/28/24 History opiod od ondansetron 8 mg disintegrating 8 mg translingual Q8 PRN Nausea 08/11/23 05/28/24 History tablet pregabalin 100 mg capsule 100 mg PO TID 08/11/23 05/28/24 History trazodone 100 mg tablet 100 - 200 mg PO HS 08/11/23 05/28/24 History pantoprazole 40 mg tablet,delayed 40 mg PO DAILY 02/02/24 05/28/24 History release atenolol 25 mg tablet 25 mg PO BID #60 tabs 02/04/24 05/28/24 Rx furosemide 40 mg tablet 40 mg PO Q OTHER DAY #0 tabs 02/04/24 05/28/24 Rx potassium chloride 10 mEq 20 meq (2 x 10 mEq) PO DAILY #0 02/04/24 05/28/24 Rx tablet,extended release tabs metoclopramide HCl 5 mg tablet 5 mg PO ACHS 30 days #90 tabs 05/30/24 Rx prochlorperazine maleate 5 mg 5 mg PO Q6H PRN nausea and 05/30/24 Rx tablet vomiting #60 tabs Hospital Stay Data Consultations 05/28/24 12:57 ED Decision to Admit Stat 05/30/24 07:46 Consult Gastroenterology Routine Diagnostic Imagining Performed 05/28/24 10:51 CT abd pelvis wo con Stat 05/28/24 11:28 US gallbladder Stat 05/28/24 14:53 US duplex mesenteric Stat Pending Results Patient Have Any Pending Studies at Discharge: No Discharge Instructions Given to Patient (Per Discharging Provider) You were admitted for abdominal pain and nausea Your symptoms resolved with the initiation of metoclopramide 5mg with meals (three times a day, 15-30minutes before a meal) It is recommended you follow up with [facility] with [facility]. You should implement a bowel regimen to avoid constipation, Miralax 1 capful daily. Consider following a low fiber/residue diet as tolerated and ensure smaller more frequent meals. You can use compazine 5mg every 6 hours as needed for break through nause a/symptoms Total Time Total Time Spent Total Time Spent (In Minutes): 45
--- NOTE | 2024-05-30 14:39 | Pharmacy Report ---
Pharmacy Glycemic Short Note 2 - Date of Service May 30, 2024 - Glycemic Short BSG Results (Last 24 hours): 05/29/24 05/29/24 05/30/24 18:46 19:05 07:23 Glucose POC Glucose 56 L* 102 H 93 05/30/24 05/30/24 07:48 11:30 Glucose 104 H POC Glucose 221 H OUTPATIENT ANTIDIABETIC REGIMEN: * Novolin R insulin pump: * basal: ~ 73 unit/day * Carb ratio: 4gm/unit * Correction factor: 10mg/dl/unit * metformin 1gm PO daily HbA1C: 6.4% (05/10/24) ASSESSMENT: * Pt is a 53 year old female admitted with abdominal pain. History of DM2 on insulin pump therapy at home. Pharmacy consulted last evening to assist with glycemic management. * This AM patient own insulin pump still running. D/w hospitalist -CGM was not correlating with POC BSGs and therefore plan for CGM to be discontinued. Discovered this AM that patient ran out of insulin for pump and did not have some of her pump supplies. Therefore, plan to d/c insulin pump and proceed with SQ basal/bolus insulin. * Diet advanced today, although patient w/nausea. Other stressors stable. * Insulin pump discontinued late this AM and SQ Novolog orders placed for lunch. Plan for reduced scale ACHS given decreased PO for now and will titrate to usual home regimen if appropriate. Plan for reduced dose HS scaled Lantus depending on BSG until more consistent PO intake. PLAN FOR INPATIENT GLYCEMIC CONTROL: * Hold outpatient oral diabetes medications * Basal insulin * Lantus 0/10/15 units SQ HS per scale based upon BSG * Bolus insulin * NovoLog per scale ACHS or Q6hrs while NPO * Goal Range: Low 110 mg/dL - High 140 mg/dL * Correction Factor: 25 mg/dL/unit * Nutritional / Prandial insulin per carb ratio of 1 unit per 10 grams CHO consumed
[2024-05-30] MEDS ORDERED: LANTUS PER UNIT CHARGE SC SCH (21:00)
--- NOTE | 2024-06-03 14:43 | Coding Query ---
CODING QUERY To promote full compliance with coding requirements relating to patient care, provider participation is requested in all cases of economic research analyst uncertainty. Please assist us with the question(s) below: Coding Question(s): There is documentation of abdominal pain and documentation in chart and Discharge Summary of, "#Severe abdominal pain refractory to fentanyl given in the ED #Chronic pain 2/2 chronic low back pain s/p surgery on buprenorphine patch #NAFLD cirrhosis #Liver malignancy c/b pancytopenia -query etiology, mesenteric ischemia vs. portal vein thrombus vs. other", and the Gastrointestinal Consultation documents, "Pain, nausea and decreased appetite have been chronic, undergoing outpatient evaluation. An EGD in 2018 showed a large amount of food in stomach. If not previously arranged, recommend a GES to rule out gastroparesis", and the Discharge Summary documents, " Patient did well with regimen previously that worked in 01/2024. Patient with relief on scheduled reglan but never continued as op--encouraged conitnuing this regimen. GI evaluated patient--recommends follow up with OP services and continue prn antiemetic On day of discharge, pain resolved, patient tolerating diet without difficult and eager for discharge home. Patient verbalized understanding of considering a low fiber diet and the need to follow up with [facility]ES", and, " You were admitted for abdominal pain and nausea Your symptoms resolved with the initiation of metoclopramide 5mg with meals (three times a day, 15-30minutes before a meal)". Please specify below, in your clinical opinion, the possible source(s) of the abdominal pain that was treated and evaluated during this admission: ( x ) Abdominal pain is most likely from possible Gastroparesis, and the mesenteric ischemia and portal vein thrombosis are ruled out. ( ) Abdominal pain is most likely from mesenteric ischemia vs portal vein thrombosis ( ) Abdominal Pain is most likely from Other: Please specify ( ) Abdominal Pain is from Unknown likely source Physician's Response(s): Thank you Rachael Rayo Principal Diagnosis: "that condition established after study, to be chiefly responsible for occasioning the admission of the patient to the hospital for care." Co-Existing Principal Diagnosis: "when two or more diagnoses equally meet the criteria for principal diagnosis as determined by the circumstances of admission, diagnostic work up, and/or therapy provided, and the Alphabetic Index, Tabular List, or another coding guideline does not provide sequencing direction, any one of the diagnoses may be sequenced first." "When the physician has documented what appears to be a current diagnosis in the body of the record, but has not included the diagnosis in the final diagnostic statement, the physician should be asked whether the diagnosis should be added." (Source Coding [facility] 2 QTR90. p3-4) SAV
[2024-06-05] MEDS ORDERED: BUPRENORPHINE 5 MCG/HR TDSY TD SCH (09:00)
== END 2024-05-30 15:28 | disposition home or self-care (01) | DRG 74 ==
LOC: ED 10:07 → SUATTDRO 14:48 → 2E 14:48

== ENCOUNTER 2024-09-10 21:04 | Inpatient (IN) ==
--- OUTSIDE RECORDS SUMMARY | 2024-09-10 21:13 | External Medical Summary | Summary of Care ---
Author Name Unknown Organization [facility] Address [address] [facility] [place] [address] Phone [phone] Care Team Providers Care Motorcycle Tester Name Role Phone Scott Weldon MD Primary Care Provider + Reason for Visit * Reason Comments Acute Worsening skin ulcer ation on lower abd. Seen Dr. Dao on 08/12/2024-- not using any topicals, or oral meds. Can not afford the muprocin ointment he Rx. Encounter Details Date Type Department Care Team (Late st Contact Info) Description 08/24/2024 2:20 PM EDT Office Visit Family Practice [facility] [address] [facility] [place] [address] Vera Rojo DO [address] [facility] [place] [address] Cellulitis of abdominal wall*; Stage 3b chronic kidney disease (HCC) Allergies Active Allergy Reactions Criticality Noted Date Comments Naproxen Sodium Bleeding High 11/29/2013 Pollen 12/03/2022 Seasonal Food (See Comments) Anaphylaxis High 04/20/2019 Hot peppers (oils) Kiwi Extract Anaphylaxis High 04/20/2019 documented as of this encounter (statuses as of 08/24/2024) Medications insulin glargine (LANTUS SOLOSTAR) 100 UNIT/ML [...] 5 02/18/20 17 Active Insulin Infusion Pump (MINIMLendingRobot 630G INSULIN PUMP) KITIndications:Typ e 2 diabetes mellitus with hemoglobin A1c goal of less than 8.0% (HCC) Use as directed. 07/30/19 18 Active CPAP every night at bedtime. Active Glucagon Emergency 1 MG Injection Kit As directed 1 Kit 3 09/05/19 23 Active Naloxone HCl 4 MG/0.1ML Nasal Liquid (Narcan Nasal)Indications: Controlled substance agreement signed,Chronic pain syndrome Administer 1 spray into 1 nostril for suspected opioid overdose. Seek immediate medical attention. https://www.American Board of Addiction Medicine (ABAM).com/watch?v=[email or web address] 1 Each 3 11/28/19 23 Active NovoLIN R ReliOn 100 UNIT/ML [...] FOR NAUSEA 30 Tablet 08/10/19 24 Active Ozempic (2 MG/DOSE) 8 MG/3ML Subcutaneous Solution Pen-injector (Semaglutide (2 MG/DOSE)) Inject under the skin. Obtaining from [employer] Active Atorvastatin Calcium 40 MG Oral Tablet (Lipitor)Indicatio ns:Dyslipidemia, goal LDL below 100 Take 1 Tablet by mouth at bedtime. 90 Tablet 2 06/11/19 25 Active Empagliflozin 10 MG Oral Tablet (Jardiance)Indicat ions:Type 2 diabetes mellitus with hemoglobin A1c goal of less than 8.0% (HCC) Take 1 Tablet by mouth in the morning. 90 Tablet 2 06/11/19 25 Active Magnesium Oxide -Mg Supplement 400 (240 Mg) MG Oral Tablet (Mag-Ox)Indication s:Hypomagnesemia Take 1 Tablet by mouth in the morning. 90 Tablet 2 06/11/19 25 Active Pregabalin 100 MG Oral Capsule (Lyrica)Indication s:Bilateral low back pain with sciatica, sciatica laterality unspecified, unspecified chronicity Take 1 Capsule by mouth in the morning and 1 Capsule at noon and 1 Capsule before bedtime. 300 Capsule 1 07/25/19 25 Active Pantoprazole Sodium 40 MG Oral Tablet Delayed Release (Protonix)Indicati ons:Esophageal varices without bleeding, unspecified esophageal varices type (HCC),Colitis Take 1 Tablet by mouth in the morning. 90 Tablet 2 06/11/19 25 Active Potassium Chloride Laura ER 20 MEQ Oral Tablet Extended Release Take 1 Tablet by mouth in the morning. 90 Tablet 2 06/11/19 25 Active traZODone HCl 100 MG Oral Tablet (Desyrel) Take 1-2 Tablets by mouth at bedtime. 180 Tablet 06/11/19 25 Active Baclofen 10 MG Oral Tablet (Lioresal)Indicati ons:Back spasm Take 1 Tablet by mouth in the morning and 1 Tablet at noon and 1 Tablet before bedtime. 270 Tablet 1 06/11/19 25 Active Albuterol Sulfate HFA 108 (90 Base) MCG/ACT Inhalation Aerosol Solution Inhale 2 puffs by mouth every 6 hours as needed for shortness of breath 20.1 g 06/11/19 25 Active Metoclopramide HCl 5 MG Oral Tablet (Reglan) Take 1 Tablet by mouth in the morning and 1 Tablet at noon and 1 Tablet in the evening. Take before meals. If needed for nausea. 300 Tablet 06/11/19 25 Active Furosemide 40 MG Oral Tablet (Lasix) Take 1 Tablet by mouth every other day. 50 Tablet 3 06/11/19 25 Active Meclizine HCl 25 MG Oral Tablet (Antivert)Indicati ons:Vertigo Take 1 Tablet by mouth 3 times a day as needed for Dizziness. 30 Tablet 06/11/19 25 Active Loratadine 10 MG Oral Tablet (Claritin)Indicati ons:Allergic rhinitis Take 1 Tablet by mouth in the morning. For allergies.. 90 Tablet 3 06/11/19 25 Active Dicyclomine HCl 20 MG Oral Tablet (Bentyl) Take 1 Tablet by mouth 2 times a day as needed (pain or cramping). 180 Tablet 2 06/29/19 25 Active Eszopiclone 2 MG Oral Tablet (Lunesta) Take 1 Tablet by mouth at bedtime. 30 Tablet 1 07/06/19 25 Active Escitalopram Oxalate 20 MG Oral Tablet (Lexapro) Take 1 Tablet by mouth in the morning. 90 Tablet 2 07/07/19 25 Active hydrOXYzine HCl 25 MG Oral Tablet Take 1 Tablet by mouth 3 times a day as needed for Anxiety. 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 180 Tablet 4 08/12/19 25 Active Mupirocin 2 % External Ointment (Bactroban)Indicat ions:Cellulitis of abdominal wall Apply topically to affected area 3 times a day. To affected area (sores on stomach) for up to 14 days. 22 g 1 08/22/19 25 Active Buprenorphine 5 MCG/HR Transdermal Patch Weekly (Butrans)Indicatio ns:Controlled substance agreement signed,Chronic bilateral low back pain with sciatica, sciatica laterality unspecified,Chroni c pain syndrome Place 1 Patch topically on the skin once a week. 4 Patch 08/24/19 25 Active Doxycycline Hyclate 100 MG Oral CapsuleIndications :Cellulitis of abdominal wall Take 1 Capsule by mouth in the morning and 1 Capsule before bedtime. Do all this for 10 days. Until gone.. 20 Capsule 08/25/19 25 025 Active documented as of this encounter (statuses as of 08/24/2024) Active Problems Problem Noted Date Diagnosed Date Stage 3b chronic kidney disease 08/24/2024 Stage 3b chronic kidney disease 08/24/2024 Seasonal affective disorder 08/11/2024 Other pancytopenia 06/30/2024 Hemiplegia and hemiparesis f ollowing cerebral infarction affecting left non-dominant side 06/30/2024 MDD (major depressive disord er), recurrent, in [...] place 05/05/2017 Well adult exam 07/17/2016 Overview (07/09/2024): 07/02 home FARZANEH WNL. 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 Insomnia 07/02/2001 Overview (03/09/2017): ICD-10 update of inactive term documented as of this encounter (statuses as of 08/24/2024) Resolved Problems Problem Noted Date Diagnosed Date [...] (09/03/2009): Per Obesity Taxonomy Coronary atherosclerosis of [place] coronary artery 09/15/2008 10/03/2008 Malaise and fatigue [...] Overview (03/31/2017): ICD-10 update of inactive term ANXIETY STATE [...] as of this encounter (statuses as of 08/24/2024) Immunizations Name Administration Dates Next Due COVID-19 mRNA, LNP-s, No Pre serve, 2-Dose Series (CENTERSONIC) 11/08/2020,10/11/2020 HEP A - Hepatitis A (Adult > 18 yrs) 04/11/2011, 09/20/2010 Hepatitis B, 20+ yrs 07/05/2015 Pneumococcal Conjugate Vacci ne, 20-valent ([id number]) 03/13/2023 Pneumococcal Polysaccharide PPV23 (Pneumovax) 02/19/2018,03/09/2007 Seasonal Influenza Vac., MDV , IM, 0.5 mL (Fluzone) 06/22/2014,03/03/2013,04/09/2012,04/11,02/25/2010,02/19/2009,05/17/2008 ,03/09/2007 Seasonal Influenza, PF, 6 M & above, IM , (FluLaval or Fluzone) 03/13/2023,03/01/2021,02/28/2020,03/09,02/19/2018,03/02/2017 Seasonal Influenza, Quadriva lent, No Preserve, IM 03/20/2016,07/05/2015 Seasonal Influenza, Trivalen t, (IIV3), PF, (Fluzone) 05/12/2024 TDAP (age 10 and older)(Boostrix) 08/05/2018 TDAP, [...] ages 0-17 years) Not on file 05/17/2024 Food Insecurity Answer Date Recorded Within the past 12 months, y ou worried that your food would run out before you got the money to buy more. Never true 05/17/20 24 Within the past 12 months, t he food you bought just didn't last and you didn't have money to get more. Never true 05/17/2024 Do you need food for this week? No 05/17/2024 Comments No Sex and Gender Information [...] Sign Reading Time Taken Comments Blood Pressure 118/80 08/24/2024 2:31 PM EDT Pulse 89 08/24/2024 2:31 PM EDT Temperature 36.9 °C (98.4 °F) 08/24/2024 2:31 PM ED T Respiratory Rate - - Oxygen Saturation 98% 08/24/2024 2:31 PM EDT Inhaled Oxygen Concentration - - Weight - - Height - - Body Mass Index - - documented in this encounter Functional Status * Are you deaf or do you have serious difficulty hearing? Answer Date of Assessment Author No 04/20/2019 10:25 AM eTresa Gonzalez LPN * Are you blind or [...] doing errands alone such as visiting a doctor’s office or shopping? (15 years old or [...] documented in this encounter Progress Notes * Vera Rojo, - 08/24/2024 2:36 PM EDT Subjective: Carmen Tyson is a 54 year old female. Chief Complaint Patient presents with Acute Worsening skin ulceration on lower abd. Seen Dr. Dao on 08/12/2024-- not using any topicals, or oral meds. Can not afford the muprocin ointment he Rx. Nursing Notes: Venecia Chou LPN 08/24/24 1434 Signed The patient has been properly identified by confirmation of name and date of . Chief Complaint Patient presents with Acute Worsening skin ulceration on lower abd. Seen Dr. Dao on 08/12/2024-- not using any topicals, or oral meds. Can not afford the muprocin ointment he Rx. Sores are getting more painful, drainage, larger in size, and spreading up her abd. HPI: This is a 54 year old female with PMHx as below presents with acute illness Pmhx - CKD Health Maintenance Due Topic Date Due COVID-19 Vaccine ( season) 2024 Diabetic Foot Exam 03/13/2024 Patient Active Problem List Diagnosis Insomnia Organic sleep disorder DONNA on CPAP Dyslipidemia, goal LDL below 100 Gastroesophageal reflux disease without esophagitis HTN, goal below 130/80 Vitamin D deficiency Type 2 diabetes mellitus with hemoglobin A1c goal of less than 8.0% ([facility]) Psychogenic nonepileptic seizure Lumbago with sciatica Controlled substance agreement signed Chronic pain syndrome Cirrhosis of liver without ascites (HCC) Well adult exam Insulin pump in place Gastroparesis Encounter for care related to vascular access port Thrombocytopenia (HCC) Diabetic gastroparalysis (HCC) Portal hypertension (HCC) Liver masses Left hemiplegia (HCC) MICHELLE (generalized anxiety disorder) Recurrent major depressive disorder, in partial remission [...] II diabetes mellitus with neurological manifestations (HCC) MDD (major depressive disorder), recurrent, in full remission (HCC) Other pancytopenia (HCC) Hemiplegia and hemiparesis following cerebral infarction affecting left non- dominant side (HCC) Seasonal affective disorder (HCC) Stage 3b chronic kidney disease (HCC) Current Outpatient Medications Medication Sig Dispense Refill [...] Injection Kit As directed 1 Kit 3 Naloxone HCl 4 MG/0.1ML Nasal Liquid (Narcan Nasal) Administer 1 spray into 1 nostril for suspectedopioid overdose. Seek immediate medical attention. https://www.youtube.com/watch?v=[email or web address] 1 Each 3 NovoLIN R ReliOn 100 UNIT/ML Injection [...] MG/DOSE)) Inject under the skin. Obtaining from [employer] Atorvastatin Calcium 40 MG Oral Tablet (Lipitor) Take 1 Tablet by mouth at bedtime. 90 Tablet 2 Empagliflozin 10 MG Oral Tablet (Jardiance) Take 1 Tablet by mouth in the morning. 90 Tablet 2 Magnesium Oxide -Mg Supplement 400 (240 Mg) MG Oral Tablet (Mag-Ox) Take 1 Tablet by mouth in the morning. 90 Tablet 2 Pregabalin 100 MG Oral Capsule (Lyrica) Take 1 Capsule by mouth in the morning and 1 Capsule at noon and 1 Capsule before bedtime. 300 Capsule 1 Pantoprazole Sodium 40 MG Oral Tablet Delayed Release (Protonix) Take 1 Tablet by mouth in the morning. 90 Tablet 2 Potassium Chloride Laura ER 20 MEQ Oral Tablet Extended Release Take 1 Tablet by mouth in the morning. 90 Tablet 2 traZODone HCl 100 MG Oral Tablet (Desyrel) Take 1-2 Tablets by mouth at bedtime. 180 Tablet 0 Baclofen 10 MG Oral Tablet (Lioresal) Take 1 Tablet by mouth in the morning and 1 Tablet at noon and 1 Tablet before bedtime. 270 Tablet 1 Albuterol Sulfate HFA 108 (90 Base) MCG/ACT Inhalation Aerosol Solution Inhale 2 puffs by mouth every 6 hours as needed for shortness of breath 20.1 g 0 Metoclopramide HCl 5 MG Oral Tablet (Reglan) Take 1 Tablet by mouth in the morning and 1 Tablet at noon and 1 Tablet in the evening. Take before meals. If needed for nausea. 300 Tablet 0 Furosemide 40 MG Oral Tablet (Lasix) Take 1 Tablet by mouth every other day. 50 Tablet 3 Meclizine HCl 25 MG Oral Tablet (Antivert) Take 1 Tablet by mouth 3 times a day as needed for Dizziness. 30 Tablet 0 Loratadine 10 MG Oral Tablet (Claritin) Take 1 Tablet by mouth in the morning. For allergies.. 90 Tablet 3 Dicyclomine HCl 20 MG Oral Tablet (Bentyl) Take 1 Tablet by mouth 2 times a day as needed (pain or cramping). 180 Tablet 2 Eszopiclone 2 MG Oral Tablet (Lunesta) Take 1 Tablet by mouth at bedtime. 30 Tablet 1 Escitalopram Oxalate 20 MG Oral Tablet (Lexapro) Take 1 Tablet by mouth in the morning. 90 Tablet 2 hydrOXYzine HCl 25 MG Oral Tablet Take 1 Tablet by mouth 3 times a day as needed for Anxiety. 90 Tablet 3 metFORMIN HCl ER 500 MG Oral Tablet Extended Release 24 Hour (Glucophage XR) Take 1 Tablet by mouth2 times a day with morning and evening meals. 180 Tablet 4 Mupirocin 2 % External Ointment (Bactroban) Apply topically to affected area 3 times a day. To affected area (sores on stomach) for up to 14 days. 22 g 1 Buprenorphine 5 MCG/HR Transdermal Patch [...] Reflux 07/27/2012 Sleep apnea, obstructive Stroke (HCC) 2013 Syncope and collapse Tachycardia Type 2 diabetes mellitus with hemoglobin A1c goal of less than 8.0% (HCC) 06/22/2014 Past Surgical History: Procedure Laterality Date COLONOSCOPY, DIAGNOSTIC (RECTUM) 06/06/2010 normal colon exam repeat in 5 years COLONOSCOPY, DIAGNOSTIC (RECTUM) 06/27/2015 retained stool, repeat/COLONOSCOPY FLEXIBLE PROXIMAL DIAGNOSTIC performed by Aj Pruett DO at[facility] COLONOSCOPY, DIAGNOSTIC (RECTUM) 10/05/2023 hemorrhoids/biopsies show hyperplastic and inflammatory tissue/recall 5 years/COLONOSCOPY FLEXIBLE PROXIMAL DIAGNOSTIC performed by Aj Pruett DO at ENDOSCOPY [facility] EGD, FLEXIBLE, DIAGNOSTIC 01/22/2011 UPPER GI ENDOSCOPY DIAGNOSTIC performed by STACEY BENNETT at ENDOSCOPY [facility] EGD, FLEXIBLE, DIAGNOSTIC 01/19/2014 portal hypertensive gastropathy, benign gastric polyp, repeat 2 yrs/done @ [facility] EGD, FLEXIBLE, DIAGNOSTIC 02/08/2016 normal bx, portal hypertensive gastropathy, repeat 1.5 yrs/[facility] EGD, FLEXIBLE, DIAGNOSTIC 08/25/2017 retained food, repeat 1 yr/ESOPHAGOGASTRODUODENOSCOPY (EGD), FLEXIBLE, TRANSORAL, DIAGNOSTIC performed by Aj Pruett DO at ENDOSCOPY [facility] EGD, FLEXIBLE, DIAGNOSTIC 12/15/2018 esophageal varices, gastritis, gastric polyp, repeat 1 yr/ESOPHAGOGASTRODUODENOSCOPY (EGD), FLEXIBLE, TRANSORAL, DIAGNOSTIC performed by Aj Pruett DO at ENDOSCOPY [facility] EGD, FLEXIBLE, DIAGNOSTIC 01/31/2020 fundic polyps, eso varices, portal hypertensive gastropathy, repeat 1 yr / ESOPHAGOGASTRODUODENOSCOPY (EGD), FLEXIBLE, TRANSORAL, DIAGNOSTIC performed by Aj Pruett DO at ENDOSCOPY [facility] EGD, FLEXIBLE, DIAGNOSTIC 10/09/2022 grade I esophageal varices/portal hypertension gastropathy/medium amount of food in stomach/ESOPHAGOGASTRODUODENOSCOPY (EGD), FLEXIBLE, TRANSORAL, DIAGNOSTIC performed by Aj Pruett DO at ENDOSCOPY [facility] EGD, FLEXIBLE, DIAGNOSTIC 10/05/2023 grade II esophageal varices/portal hypertensive gastropathy/multiple gastric polyps, resected and retrieved, clips placed/biopsies show fundic polyps/repeat 6 months/ESOPHAGOGASTRODUODENOSCOPY (EGD),FLEXIBLE, TRANSORAL, DIAGNOSTIC performed by Aj Pruett DO at ENDOSCOPY [facility] EGD, FLEXIBLE, DIAGNOSTIC 03/25/2024 grade II esophageal varices/portal hypertensive gastropathy/several endoclips stomach/multiple gastric polyps/biopsies show fundic polyps/recall 12-18 months/ESOPHAGOGASTRODUODENOSCOPY (EGD), FLEXIBLE, TRANSORAL, DIAGNOSTIC performed by Aj Pruett DO at ENDOSCOPY [facility] EGD, FLEXIBLE, W/BIOPSY 07/27/2012 small fundic stomach polyp/inflammation r/t reflux-repeat EGD in 1 yr EGD, W/ENDOSCOPIC US 01/22/2011 UPPER GI ENDOSCOPY ENDOSCOPIC ULTRASOUND performed by STACEY BENNETT at [facility]COPY [facility] EVAL NEUROSTIM PULSE GEN, W/ REPROGRAM N/A 06/27/2022 NEUROSTIMULATOR PULSE GENERATOR/ TRANSMITTER, WITH INTRAOPERATIVE OR SUBSEQUENT PROGRAMMING performed by Rafia Small MD at OR [facility] EVAL NEUROSTIM PULSE GEN, W/ REPROGRAM N/A 08/22/2022 NEUROSTIMULATOR PULSE GENERATOR/ TRANSMITTER, WITH INTRAOPERATIVE OR SUBSEQUENT PROGRAMMING performed by Rafia Small MD at OR [facility] HYSTEROSCOPY,DIAGNOSTIC 07/16/2006 NovaSure endomentrial ablation IMPLANT EPIDURAL NEUROELECTRODES N/A 06/27/2022 PERCUTANEOUS IMPLANTATION NEUROSTIMULATOR EPIDURAL performed by Rafia Small MD at [facility] IMPLANT EPIDURAL NEUROELECTRODES N/A 08/22/2022 PERCUTANEOUS IMPLANTATION NEUROSTIMULATOR EPIDURAL performed by Rafia Small MD at OR [facility] IMPLANT SPINAL NEURORECEIVER N/A 08/22/2022 INSERTION OR REPLACEMENT SPINAL NEUROSTIMULATOR GENERATOR performed by Rafia Small MD [facility] INJECT DX/THER SUBSTANCE INTERLAMINAR LUMBAR/SACRAL W IMAGE GUIDE 04/13/2017 INJECTION SPINE LUMBAR OR SACRAL performed by Rene Kate DO at OR [facility] INJECT DX/THER SUBSTANCE INTERLAMINAR LUMBAR/SACRAL W IMAGE GUIDE 12/10/2017 INJECTION SPINE LUMBAR OR SACRAL performed by Rene Kate DO at OR [facility] INSER TUNN ACC DEV;5 YRS/OLDER 03/24/2013 03/24/2013 at [facility], Placement of A-Port central venous access catheter with port Dr. Renate WOODF CT GUIDED NEEDLE BIOPSY 07/11/2010 CT GUIDED NEEDLE ASPIRATION BIOPSY performed by JAMILA SAWANT at RADIOLOGY [facility] LIGATE/CUT OVIDUCT(S) 07/1995 Review of patient's allergies [...] Gastro-intestinal disorder Grandmother (Paternal) Liver disease Family Status Relation Status Mo Fa at age 58 Kidney failure, dm, HEART Sis Alive Sis (Not Specified) Bro Alive Bro Alive Bro (Not Specified) Bro (Not Specified) Bro (Not Specified) MGMA (Not Specified) PGMA (Not Specified) Son Alive Son Alive Social History Socioeconomic History Marital status: Spouse name: Mathew Number of children: 2 Years of education: Not on file Highest education level: Not on file Occupational History Occupation: unemployed 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 (Adult - for ages 18 years and over): No Does your family have trouble paying for medicine? (Household - for ages 0-17 years): Not on file Food Insecurity: No Food Insecurity (05/17/2024) Food Insecurity Worried About Running Out of Food in the Last Year: Never true Ran Out of Food in the Last Year: Never true Do you need food for this week? (Adult - for ages 18 years and over): No Transportation Needs: Unmet Transportation Needs (05/17/2024) Transportation Needs Do you have trouble getting a ride to medical visits or work? (Adult - for ages 18 years and over):Sometimes True Does your family have a hard time getting a ride to doctors’ visits? (Household - for ages 0-17 years): Not on file Has lack of transportation kept you from medical appointments, meetings, work, or from getting things needed for daily living? Check all that apply. (Adult - for ages 18 years and over): No Do you (or your family) have trouble finding or paying for a ride (transportation)? (Household - for ages 0-17 years): Not on file Social Connections: Socially Integrated (05/17/2024) Social Connections How often do you feel lonely or isolated from those around you? (Adult - for ages 18 years and over): Never Housing Stability: Low Risk (05/17/2024) Housing Stability Do you currently live in a longterm or have no steady place to sleep [...] 18 years and over): No Are you (or your family) homeless or worried that you might be in the future? (Household - for ages0-17 years): Not on file Review of Systems: As per HPI all other ROS negative. Wt Readings from Last 3 Encounters: 08/12/24 236 lb 4.8 oz (107.2 kg) 05/18/24 231 lb (104.8 kg) 05/10/24 231 lb (104.8 kg) Results for orders placed or performed in visit on 08/22/24 FERRITIN Result Value Ref Range Ferritin 315 (H) 13 - 150 ng/mL IRON SCREEN, INCLUDING TIBC Result Value Ref Range Iron 61 33 - 151 ug/dL Iron Binding Capacity 258 250 - 425 ug/dL Transferrin Saturation Percent 24 15 - 55 % GGTP Result Value Ref Range GGTP 289 (H) <=40 U/L LIPASE Result Value Ref Range Lipase 55 13 - 60 U/L CBC Result Value Ref Range WBC 5.02 4.00 - 10.80 K/uL RBC 4.19 3.85 - 5.15 M/uL HGB 11.8 (L) 12.0 - 15.3 g/dL HCT 36.8 36.0 - 45.2 % MCV 87.8 81.5 - 97.5 fL MCH 28.2 27.0 - 34.0 pg MCHC 32.1 32.0 - 36.0 g/dL RDW 14.1 11.5 - 15.5 % PLT 68 (L) 140 - 400 K/uL MPV 10.1 6.6 - 11.1 fL DIFFERENTIAL, AUTOMATED Result Value Ref Range WBC 5.02 4.00 - 10.80 K/uL Neutrophils % 64.7 40.0 - 75.0 % Lymphocytes % 20.3 18.0 - 42.0 % Monocytes % 9.8 1.0 - 11.0 % Eosinophils % 4.6 0.0 - 6.0 % Basophils % 0.6 0.0 - 2.0 % Absolute Neutrophils 3.25 1.80 - 7.70 K/uL Absolute Lymphocytes 1.02 1.00 - 4.80 K/ul Absolute Monocytes 0.49 0.00 - 1.10 K/uL Absolute Eosinophils 0.23 0.00 - 0.70 K/uL Absolute Basophils 0.03 0.00 - 0.20 K/uL DIFFERENTIAL, TECHNOLOGIST REVIEW Result Value Ref Range nRBCs *Note: Due to a large number of results and/or encounters for the requested time period, some results have not been displayed. A complete set of results can be found in Results Review. OBJECTIVE: Physical Exam: BP 118/80 | Pulse 89 | Temp 98.4 °F (36.9 °C) (Tympanic) | SpO2 98% General: alert, healthy, and no distress SKin: abdominal lower - circular erythematous lesions scattered - up to 1.5cm Cellulitis of abdominal wall (Primary) - Doxycycline Hyclate 100 MG Oral Capsule; Take 1 Capsule by mouth in the morning and 1 Capsule before bedtime. Do all this for 10 days. Until gone.. Stage 3b chronic kidney disease (HCC) Start doxy, soap and water, betadine, 1 week follow up Vera Rojo DO documented in this encounter Nursing Notes * Venecia Chou LPN - 08/24/2024 2:29 PM EDT The patient has been properly identified by confirmation of name and date of . Chief Complaint Patient presents with Acute Worsening skin ulceration on lower abd. Seen Dr. Dao on 08/12/2024-- not using any topicals, or oral meds. Can not afford the muprocin ointment he Rx. Sores are getting more painful, drainage, larger in size, and spreading up her abd. documented in this encounter Plan of Treatment Upcoming Encounters Date Type Department Care Team (Late st Contact Info) Description 09/08/2024 8:00 AM EDT [facility] [address] [phone] 09/09/2024 8:00 AM EDT Office Visit Family Practice [facility] [address] [address] Vera Rojo DO [address] [address] 09/13/2024 1:00 PM EDT Office Visit Pharmacy, [address] [phone] [facility] [address] [place] [address] [place] [address] 09/13/2024 2:00 PM EDT Laboratory Laboratory, [address] [place] [phone] [facility] [address] [place] [address] 09/15/2024 9:30 AM EDT Telemedicine Pharmacy, [facility] [address] [facility] [place] [address] [facility] 132 [facility] [place], [place] [address] 09/15/2024 11:30 AM EDT Office Visit Hematology/Oncology [facility] 200 [facility] [place] [address] Miesha Dawson CRNP [address] [place] [address] 09/29/2024 1:00 PM EDT Office Visit Family Practice [facility] [address] [facility] [place], [place] [address] Jadiel Epstein CRNP 132 [facility] [address] 10/18/2024 2:20 PM EDT Telemedicine Hepatology, [place] [address] [place] [address] Enid Saldana [address] [place] [address] 11/10/2024 12:30 PM EDT Telemedicine Psychiatry [facility] [address] [place] [address] Nhi Fritz CRNP [address] [place] [phone] 11/18/2024 2:40 PM EDT Office Visit Nephrology, [facility] [address] [place] [address] Jonathan Mathew MD 200 [facility] [place] [address] 12/14/2024 12:20 PM EDT Office Visit [facility] [address] [place] [address] Scott Weldon MD [address] [place] [address] 06/16/2025 11:40 AM EST Office Visit [facility] [address] [place] [address] Scott Weldon MD [address] [place] [address] Scheduled Procedures Name Priority Associated Diagnoses Date/Ti me ESOPHAGOGASTRODUODENOSCOPY ( EGD), FLEXIBLE, TRANSORAL, DIAGNOSTIC Recall Gastric polyps Esophageal varices (HCC) COLONOSCOPY FLEXIBLE PROXIMAL DIAGNOSTIC Recall History of colonic polyps Health Maintenance Due Date Last Done Comments Cologuard 2017 Fecal Occult Blood Test 2017 Sigmoidoscopy 2017 COVID-19 Vaccine ( season) 2024 11/08/2020, 10/11/2020 Mammogram 09/01/2024 09/02/2023, 04/10, 01/21/2016 B-12 09/07/2024 09/08/2023, 0 09/2022, 06/14/2020, Additional history exists HbA1c 11/14/2024 05/16/2024, 0 12/2023, 07/23/2023, Additional history exists Diabetic Foot Exam 12/21/2024 03/13/2023, 0 10/03/2021, 11/07/2019, Additional history exists Postponed from 03/13/2024 (Acute Illness) GFR 01/08/2025 07/11/2024, 0 12/2024, 05/16/2024, Additional history exists Diabetic Eye Exam 04/20/2025 04/20/2024, , 04/20/2024, Additional history exists Albumin/Creatinine Ratio 05/16/2025 024, 07/23/2023, 04/06/2023, Additional history exists CKD PHOS USE SMARTSET 93322 05/16/202502/2024, 10/22/2023, 10/02/2023, Additional history exists Depression Monitoring 05/17/2025 05/17/2024 CKD HGB USE SMARTSET 32683 08/22/202508/22, 08/22/2024, 07/11/2024, Additional history exists Pap Smear 09/07/2026 09/08/2023, 10/2014, 04/12/2015, Additional history exists DTap/Tdap Vaccines (3 - Td or Tdap) 08/05/2028 08/05/2018, 05/15/2008 Cervical Cancer Screening 09/07/2028 HPV/Co-Test 09/07/2028 09/08/2023 Colonoscopy 10/04/2028 10/05/2023, 09/07, 06/27/2015, Additional history exists Colorectal Cancer Screening 10/04/2028 Lipid Panel 05/16/2029 05/16/2024, 07/09, 03/11/2022, Additional history exists Pneumococcal Vaccine: 50+ Years Completed 03/13/2023, 02/19/2018, 03/09/2007 RETIRED - COLONOSCOPY-EVERY [...] on patient's age to complete this topic Meningitis B Vaccine (Bexsero/Trumemba) Aged Out No longer eligible based on patient's age to complete this topic documented as of this encounter Medical Devices Implanted Type Area Therapeutic Dietitian Device Identifier Shelf Expiration Date Model / Serial / Lot Neurostimul Intellis Adaptiv - [id number] - [id number] Implanted:Qty: 1 on 08/22/2022 by Rafia Small MD at OR [facility] N/A: Spine Lumbar [employer] 06/21/2023 [id number] / [id number] / Description:battery Medtronic Lead Kit 60 Cm Implanted:Qty: 1 on 08/22/2022 by Rafia Small MD at OR [facility] N/A: Spine Lumbar 02/01/2026 [id number] / / [id number] Medtronic Lead Kit 60cm Implanted:Qty: 1 on 08/22/2022 by Rafia Small MD at OR [facility] N/A: Spine Lumbar 03/21/2026 [id number] / / [id number] Envelope Tyrx Med Antibacteril - [id number] Implanted:Qty: 1 on 08/22/2022 by Rafia Small MD at OR [facility] N/A: Spine Lumbar [employer] 03/10/2023 [id number] / / [id number] Hemostatic Clip Res 235cm - [id number] Implanted:Qty: 4 on 10/05/2023 by Aj Pruett DO at [facility]COPY [facility] : END[facility]COPY 02/03/2026 [id number] / / Hemostatic Clip Res 235cm - [id number] Implanted:Qty: 1 on 10/05/2023 by Aj Pruett DO at END[facility]COPY [facility] : ENDOSCOPY 02/02/2026 [id number] / / documented as of this encounter Visit Diagnoses Diagnosis Cellulitis of abdominal wall- Primary Cellulitis and abscess of trunk Stage 3b chronic kidney disease (HCC) documented in this encounter Advance Directives * [...] Power of Attor narda? No Care Teams Motorcycle Tester Relationship Specialty Start Date End Date Scott Weldon MD [address] [place] [address] PCP - General Family Medicine 08/03/18 documented as of this encounter
--- OUTSIDE RECORDS SUMMARY | 2024-09-10 21:13 | External Medical Summary | Summary of Care ---
Author Name Unknown Organization [facility] Address [address] [facility] [place] [address] Phone [phone] Care Team Providers Care Childrens Club Attendant Name Role Phone Scott Weldon MD [...] 2:20 PM EDT Office Visit Family Practice [facility] 132 [facility] [place] [address] Vera Rojo DO 132 [facility] [place] [address] Cellulitis of abdominal wall*; Stage 3b chronic [...] 5 02/18/20 17 Active Insulin Infusion Pump (MINIMBrainomix 630G INSULIN PUMP) KITIndications:Typ e 2 diabetes [...] suspected opioid overdose. Seek immediate medical attention. [email or web address]?[email or web address] 1 Each 3 11/28/19 23 Active NovoLIN [...] MG/DOSE)) Inject under the skin. Obtaining from [employer] Active Atorvastatin Calcium 40 MG Oral Tablet [...] (09/03/2009): Per Obesity Taxonomy Coronary atherosclerosis of [place] [...] mRNA, LNP-s, No Pre serve, 2-Dose Series (Liazon) 11/08/2020,10/11/2020 HEP A - Hepatitis A (Adult > 18 yrs) 04/11/2011, 09/20/2010 Hepatitis B, 20+ yrs 07/05/2015 Pneumococcal Conjugate Vacci ne, 20-valent (Ywlytih76) 03/13/2023 Pneumococcal Polysaccharide PPV23 (Pneumovax) 02/19/2018,03/09/2007 Seasonal [...] less than 8.0% ([facility]) Psychogenic nonepileptic seizure Lumbago with sciatica Controlled [...] for suspectedopioid overdose. Seek immediate medical attention. [email or web address]?v=[email or web address] 1 Each 3 NovoLIN R ReliOn 100 [...] MG/DOSE)) Inject under the skin. Obtaining from [employer] Atorvastatin Calcium 40 MG Oral Tablet (Lipitor) [...] most recent episode depressed, moderate (HCC) Dr Zoarida Hidalgo Chronic pain syndrome 11/28/2015 Cirrhosis of [...] DIAGNOSTIC performed by Aj Pruett DO at[facility]COPY [facility] COLONOSCOPY, DIAGNOSTIC (RECTUM) 10/05/2023 hemorrhoids/biopsies show hyperplastic and inflammatory tissue/recall 5 years/COLONOSCOPY FLEXIBLE PROXIMAL DIAGNOSTIC performed by Aj Pruett DO at ENDOSCOPY [facility] EGD, FLEXIBLE, DIAGNOSTIC 01/22/2011 UPPER GI ENDOSCOPY DIAGNOSTIC performed by STACEY BENNETT at ENDOSCOPY [place] EGD, FLEXIBLE, DIAGNOSTIC 01/19/2014 portal hypertensive gastropathy, benign gastric polyp, repeat 2 yrs/done @ [facility] EGD, FLEXIBLE, DIAGNOSTIC 02/08/2016 normal bx, portal hypertensive gastropathy, repeat 1.5 yrs/[facility] EGD, FLEXIBLE, DIAGNOSTIC 08/25/2017 retained food, repeat 1 yr/ESOPHAGOGASTRODUODENOSCOPY (EGD), FLEXIBLE, TRANSORAL, DIAGNOSTIC performed by Aj Pruett DO at ENDOSCOPY [facility] EGD, FLEXIBLE, DIAGNOSTIC 12/15/2018 esophageal varices, gastritis, gastric polyp, repeat 1 yr/ESOPHAGOGASTRODUODENOSCOPY (EGD), FLEXIBLE, TRANSORAL, DIAGNOSTIC performed by Aj Pruett DO at ENDOSCOPY [facility] EGD, FLEXIBLE, DIAGNOSTIC 01/31/2020 fundic polyps, eso varices, portal hypertensive gastropathy, repeat 1 yr / ESOPHAGOGASTRODUODENOSCOPY (EGD), FLEXIBLE, TRANSORAL, DIAGNOSTIC performed by Aj Pruett DO at ENDOSCOPY [facility] EGD, FLEXIBLE, DIAGNOSTIC 10/09/2022 grade I esophageal varices/portal hypertension gastropathy/medium amount of food in stomach/ESOPHAGOGASTRODUODENOSCOPY (EGD), FLEXIBLE, TRANSORAL, DIAGNOSTIC performed by Aj Pruett DO at ENDOSCOPY [facility] EGD, FLEXIBLE, DIAGNOSTIC 10/05/2023 grade II esophageal varices/portal hypertensive gastropathy/multiple gastric polyps, resected and retrieved, clips placed/biopsies show fundic polyps/repeat 6 months/ESOPHAGOGASTRODUODENOSCOPY (EGD),FLEXIBLE, TRANSORAL, DIAGNOSTIC performed by Aj Pruett DO at ENDOSCOPY [facility] EGD, FLEXIBLE, DIAGNOSTIC 03/25/2024 grade II esophageal varices/portal hypertensive gastropathy/several endoclips stomach/multiple gastric polyps/biopsies show fundic polyps/recall 12-18 months/ESOPHAGOGASTRODUODENOSCOPY (EGD), FLEXIBLE, TRANSORAL, DIAGNOSTIC performed by Aj Pruett DO at ENDOSCOPY [facility] EGD, FLEXIBLE, W/BIOPSY 07/27/2012 small fundic stomach polyp/inflammation r/t reflux-repeat EGD in 1 yr EGD, W/ENDOSCOPIC US 01/22/2011 UPPER GI ENDOSCOPY ENDOSCOPIC ULTRASOUND performed by STACEY BENNETT at [facility] [place] EVAL NEUROSTIM PULSE GEN, W/ REPROGRAM N/A 06/27/2022 NEUROSTIMULATOR PULSE GENERATOR/ TRANSMITTER, WITH INTRAOPERATIVE OR SUBSEQUENT PROGRAMMING performed by Rafia Small MD at OR [facility] EVAL NEUROSTIM PULSE GEN, W/ REPROGRAM N/A 08/22/2022 NEUROSTIMULATOR PULSE GENERATOR/ TRANSMITTER, WITH INTRAOPERATIVE OR SUBSEQUENT PROGRAMMING performed by Rafia Small MD at OR [facility] HYSTEROSCOPY,DIAGNOSTIC 07/16/2006 NovaSure endomentrial ablation IMPLANT EPIDURAL NEUROELECTRODES N/A 06/27/2022 PERCUTANEOUS IMPLANTATION NEUROSTIMULATOR EPIDURAL performed by Rafia Small MD at OR [facility] IMPLANT EPIDURAL NEUROELECTRODES N/A 08/22/2022 PERCUTANEOUS IMPLANTATION NEUROSTIMULATOR EPIDURAL performed by Rafia Small MD at OR [facility] IMPLANT SPINAL NEURORECEIVER N/A 08/22/2022 INSERTION OR REPLACEMENT SPINAL NEUROSTIMULATOR GENERATOR performed by Rafia Small MD at[facility] INJECT DX/THER SUBSTANCE INTERLAMINAR LUMBAR/SACRAL W IMAGE GUIDE 04/13/2017 INJECTION SPINE LUMBAR OR SACRAL performed by Rene Kate DO at OR [facility] INJECT DX/THER SUBSTANCE INTERLAMINAR LUMBAR/SACRAL W IMAGE GUIDE 12/10/2017 INJECTION SPINE LUMBAR OR SACRAL performed by Rene Kate DO at OR [facility] INSER TUNN ACC DEV;5 YRS/OLDER 03/24/2013 03/24/2013 at [facility], Placement of A-Port central venous access catheter with port Dr. 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 Tobacco Use Smoking status: Never Passive exposure: [...] Not Asked Social History Narrative Lives in [place] with , worked for the [employer] until 2010 Yanci (granddaughter 4 in ) [...] Stability Do you currently live in a [place] or have no steady place to sleep [...] Info) Description 09/08/2024 8:00 AM EDT Imaging [facility] [address] [place] [phone] 09/09/2024 8:00 AM EDT Office Visit Family Practice [facility] [address] [place] [address] Vera Rojo DO 132 [place] [address] 09/13/2024 1:00 PM EDT Office Visit Pharmacy, [address] [place] [phone] [facility] [address] [place] [address] [place] [address] 09/13/2024 2:00 PM EDT Laboratory Laboratory, [address] [place] [phone] Gianni [facility] [address] [place] [address] 09/15/2024 9:30 AM EDT Telemedicine Pharmacy, [facility] 132 [facility] [place] [address] [facility] 132 [facility] [place], [place] [address] 09/15/2024 11:30 AM EDT Office Visit Hematology/Oncology [facility] 200 [facility] [place] [address] Miesha Dawson CRNP 400 [place] [address] 09/29/2024 1:00 PM EDT Office Visit Family Practice [facility] [address] [facility] [place], [place] [address] Jadiel Epstein CRNP 132 [facility] [address] 10/18/2024 2:20 PM EDT Telemedicine Hepatology, [place] [address] [place] [address] Enid Saldana [address] [place] [address] 11/10/2024 12:30 PM EDT Telemedicine Psychiatry [facility] [address] [place] [address] Nhi Fritz CRNP 68 [place] [address] 11/18/2024 2:40 PM EDT Office Visit Nephrology, [facility] [address] [place] [address] Jonathan Mathew MD [address] [place] [address] 12/14/2024 12:20 PM EDT Office Visit [facility] [address] [place] [address] Scott Weldon MD [address] [place] [address] 06/16/2025 11:40 AM EST Office Visit [facility] [address] [place] [address] Scott Weldon MD [address] [place] [address] Scheduled Procedures Name Priority Associated Diagnoses Date/Ti [...] Additional history exists CKD PHOS USE SMARTSET 01635 05/16/202502/2024, 10/22/2023, 10/02/2023, Additional history exists Depression Monitoring 05/17/2025 05/17/2024 CKD HGB USE SMARTSET 19014 08/22/202508/22, 08/22/2024, 07/11/2024, Additional history exists Pap [...] this encounter Medical Devices Implanted Type Area Planning Technician Device Identifier Shelf Expiration Date Model / Serial / Lot Neurostimul Intellis Adaptiv - [id number] - [id number] Implanted:Qty: 1 on 08/22/2022 by Rafia Small MD at OR [facility] N/A: Spine Lumbar [employer] 06/21/2023 [id number] / [id number] / Description:battery Medtronic Lead Kit 60 Cm Implanted:Qty: 1 on 08/22/2022 by Rafia Small MD at OR [facility] N/A: Spine Lumbar 02/01/2026 [id number] / / [id number] Medtronic Lead Kit 60cm Implanted:Qty: 1 on 08/22/2022 by Rafia Small MD at OR [facility] N/A: Spine Lumbar 03/21/2026 [id number] / / [id number] Envelope Tyrx Med Antibacteril - [id number] Implanted:Qty: 1 on 08/22/2022 by Rafia Small MD at OR [facility] N/A: Spine Lumbar [employer] 03/10/2023 [id number] / / [id number] Hemostatic Clip Res 235cm - [id number] Implanted:Qty: 4 on 10/05/2023 by Aj Pruett DO at [facility] : [facility] 02/03/2026 [id number] / / Hemostatic Clip Res 235cm - [id number] Implanted:Qty: 1 on 10/05/2023 by Aj Pruett DO at END[facility]COPY [facility] : ENDOSCOPY 02/02/2026 [id number] / / documented as of this encounter [...] Power of Attor narda? No Care Teams Childrens Club Attendant Relationship Specialty Start Date End Date Scott Weldon MD [address] [place] [address] PCP - General Family Medicine 08/03/18 documented as of this encounter
--- OUTSIDE RECORDS SUMMARY | 2024-09-10 21:13 | External Medical Summary | Summary of Care ---
Author Name Unknown Organization [facility] Address [address] [facility] [place] [address] Phone [phone] Care Team Providers Care Public Health Aides Teacher Name Role Phone Scott Weldon MD Primary Care Provider + Reason for Visit * Reason Onset Date Comments Medication Refill 08/27/2024 Encounter Details Date Type Department Care Team (Late st Contact Info) Description 08/27/2024 Refill Family Practice [facility] [address] [place] [address] Scott Weldon MD 132 [place] [address] Controlled substance agreement signed; Chronic bilateral low back pain with sciatica, sciatica laterality unspecified; Chronic pain syndrome Allergies Active Allergy Reactions Criticality Noted Date Comments Naproxen Sodium Bleeding High 11/29/2013 Pollen 12/03/2022 Seasonal Food (See Comments) Anaphylaxis High 04/20/2019 Hot peppers (oils) Kiwi Extract Anaphylaxis High 04/20/2019 documented as of this encounter (statuses as of 08/28/2024) Medications insulin glargine (LANTUS SOLOSTAR) 100 UNIT/ML [...] 5 02/18/20 17 Active Insulin Infusion Pump (MINIMThe Pyromaniac 630G INSULIN PUMP) KITIndications:Typ e 2 diabetes [...] suspected opioid overdose. Seek immediate medical attention. [email or web address] 1 Each 3 11/28/19 23 Active NovoLIN [...] MG/DOSE)) Inject under the skin. Obtaining from [employer] Active Atorvastatin Calcium 40 MG Oral Tablet [...] as of this encounter (statuses as of 08/28/2024) Active Problems Problem Noted Date Diagnosed Date [...] as of this encounter (statuses as of 08/28/2024) Resolved Problems Problem Noted Date Diagnosed Date [...] (09/03/2009): Per Obesity Taxonomy Coronary atherosclerosis of resighini coronary artery 09/15/2008 10/03/2008 Malaise and fatigue [...] as of this encounter (statuses as of 08/28/2024) Immunizations Name Administration Dates Next Due COVID-19 mRNA, LNP-s, No Pre serve, 2-Dose Series ([employer]) 11/08/2020,10/11/2020 HEP A - Hepatitis A (Adult > 18 yrs) 04/11/2011, 09/20/2010 Hepatitis B, 20+ yrs 07/05/2015 Pneumococcal Conjugate Vacci ne, 20-valent (Rfviboo90) 03/13/2023 Pneumococcal Polysaccharide PPV23 (Pneumovax) 02/19/2018,03/09/2007 Seasonal [...] Teresa Moore LPN documented in this encounter Plan of Treatment Upcoming Encounters Date Type Department Care Team (Late st Contact Info) Description 09/08/2024 8:00 AM EDT Imaging [facility] 2nd Floor Cardiology, [place] [address] [place] [phone] 09/09/2024 8:00 AM EDT Office Visit Family Practice [facility] [address] [place] [address] Vera Rojo DO [address] [place] [address] 09/13/2024 1:00 PM EDT Office Visit Pharmacy, [place] 226 [facility] [place] [place] [phone] [address] [address] 09/13/2024 2:00 PM EDT Laboratory Laboratory, Jayesh [place] [address] [place] [phone] [place] [address] 09/15/2024 9:30 AM EDT Telemedicine Pharmacy, [facility] [address] [place] [address] [facility] [address] [place] [address] 09/15/2024 11:30 AM EDT Office Visit Hematology/Oncology [facility] 200 [facility] [phone] Miesha Dawson, NOEL [address] [place], [place] [address] [address] 09/29/2024 1:00 PM EDT Office Visit [facility] [address] [place] [address] Jadiel Epstein CRNP [address] [place] [address] 10/18/2024 2:20 PM EDT Telemedicine Hepatology, [place] [address] [place], [place] [phone] Enid [place], [address] [place] [address] 11/10/2024 12:30 PM EDT Telemedicine Psychiatry [facility] [address] [place] [address] Nhi Fritz CRNP [address] [place] [address] 11/18/2024 2:40 PM EDT Office Visit Nephrology, [facility] 200 [facility] [place] [address] Jonathan Mathew MD 200 [facility] [place] [address] 12/14/2024 12:20 PM EDT Office Visit [facility] [address] [place] [address] Scott Weldon MD [address] [place] [address] 06/16/2025 11:40 AM EST Office Visit [facility] [address] [place] [address] Scott Weldon MD [address] [place] [address] Scheduled Procedures Name Priority Associated Diagnoses Date/Ti [...] 05/16/2024, 12/2023, 07/23/2023, Additional history exists Diabetic Foot Exam 12/21/2024 03/13/2023, 0 10/03/2021, 11/07/2019, Additional history exists Postponed from 03/13/2024 (Acute Illness) GFR 01/08/2025 07/11/2024, 12/2024, 05/16/2024, Additional history exists Diabetic Eye Exam 04/20/2025 04/20/2024, , 04/20/2024, Additional history exists Albumin/Creatinine Ratio 05/16/202505/16/2 024, 07/23/2023, 04/06/2023, Additional history exists CKD PHOS USE SMARTSET 52207 05/16/20250 02/2024, 10/22/2023, 10/02/2023, Additional history exists Depression Monitoring 05/17/2025 05/17/2024 CKD HGB USE SMARTSET 43336 08/22/202508/22, 08/22/2024, 07/11/2024, Additional history exists Pap [...] this encounter Medical Devices Implanted Type Area Elastic Assembler Device Identifier Shelf Expiration Date Model / Serial / Lot Neurostimul Intellis Adaptiv - [id number] - [id number] Implanted:Qty: 1 on 08/22/2022 by Rafia Small MD at OR [facility] N/A: Spine Lumbar [employer] 06/21/2023 [id number] / [id number] / Description:battery Medtronic Lead Kit 60 Cm Implanted:Qty: 1 on 08/22/2022 by Rafia Small MD at OR [facility] N/A: Spine Lumbar 02/01/2026 [id number] / / [id number] Medtronic Lead Kit 60cm Implanted:Qty: 1 on 08/22/2022 by Rafia Small MD at OR [facility] N/A: Spine Lumbar 03/21/2026 [id number] / / [id number] Envelope Tyrx Med Antibacteril - [id number] Implanted:Qty: 1 on 08/22/2022 by Rafia Small MD at OR [facility] N/A: Spine Lumbar [employer] 03/10/2023 [id number] / / [id number] Hemostatic Clip Res 235cm - [id number] Implanted:Qty: 4 on 10/05/2023 by Aj Pruett DO at ENDOSCOPY [facility] : ENDOSCOPY 02/03/2026 [id number] / / Hemostatic Clip Res 235cm - [id number] Implanted:Qty: 1 on 10/05/2023 by Aj Pruett DO at ENDOSCOPY [facility] : ENDOSCOPY 02/02/2026 [id number] / / documented as of this encounter [...] Power of Attor narda? No Care Teams Public Health Aides Teacher Relationship Specialty Start Date End Date Scott Weldon MD [address] [place] [address] PCP - General Family Medicine 08/03/18 documented as of this encounter
--- OUTSIDE RECORDS SUMMARY | 2024-09-10 21:13 | External Medical Summary | Summary of Care ---
Author Name Unknown Organization [facility] Address [address] [facility] [facility] [address] Phone [phone] Care Team Providers Care Property Management Coordinator Name Role Phone Scott Weldon MD Primary Care Provider + Encounter Details Date Type Department Care Team (Late st Contact Info) Description 08/30/2024 Orders Only Pharmacy, [facility] [address] [facility] [place] [address] Radha Mckeon, [facility] 21 [facility] [place] [address] Called insurance at . Prior authorization denied, appeal Allergies Active Allergy Reactions Criticality Noted Date Comments Naproxen Sodium Bleeding High 11/29/2013 Pollen 12/03/2022 Seasonal Food (See Comments) Anaphylaxis High 04/20/2019 Hot peppers (oils) Kiwi Extract Anaphylaxis High 04/20/2019 documented as of this encounter (statuses as of 08/30/2024) Medications insulin glargine (LANTUS SOLOSTAR) 100 UNIT/ML [...] suspected opioid overdose. Seek immediate medical attention. [email or web address]?v=[email or web address] 1 Each 3 11/28/19 23 Active NovoLIN R ReliOn 100 UNIT/ML Injection Solution (insulin REGULAR human)Indications: Type 2 diabetes mellitus with hemoglobin A1c goal of less than 8.0% ([facility]),DM type 2, not at goal ([facility] [...] MG/DOSE)) Inject under the skin. Obtaining from [employer] Active Atorvastatin Calcium 40 MG Oral Tablet [...] as of this encounter (statuses as of 08/30/2024) Active Problems Problem Noted Date Diagnosed Date [...] as of this encounter (statuses as of 08/30/2024) Resolved Problems Problem Noted Date Diagnosed Date [...] (09/03/2009): Per Obesity Taxonomy Coronary atherosclerosis of [place] coronary artery 09/15/2008 10/03/2008 Malaise and fatigue [...] as of this encounter (statuses as of 08/30/2024) Immunizations Name Administration Dates Next Due COVID-19 mRNA, LNP-s, No Pre serve, 2-Dose Series ([employer]) 11/08/2020,10/11/2020 HEP A - Hepatitis A (Adult > 18 yrs) 04/11/2011, 09/20/2010 Hepatitis B, 20+ yrs 07/05/2015 Pneumococcal Conjugate Vacci ne, 20-valent ([id number]) 03/13/2023 Pneumococcal Polysaccharide PPV23 (Pneumovax) 02/19/2018,03/09/2007 Seasonal [...] documented in this encounter Progress Notes * Radha Mckeon RPh - 08/30/2024 3:06 PM EDT Called insurance at . Prior authorization denied, appeal started yesterday 08/29, appeal will be due for decision by 09/03. Reference number: [id number] Radha Mckeon, Pharm D, BCACP Clinical Pharmacist 08/30/2024, 3:07 PM documented in this encounter Plan of Treatment Upcoming Encounters Date Type Department Care Team (Late st Contact Info) Description 09/08/2024 8:00 AM EDT Imaging [facility] [address] [place] [phone] 09/09/2024 8:00 AM EDT Office Visit Family Practice [facility] [address] [place] [address] [address] Vera Rojo DO [address] [place] Perez [address] 09/13/2024 1:00 PM EDT Office Visit Pharmacy, Jayesh Moy [address] [place] [address] [phone] [facility] [address] [place], [place] [address] herrera [address] 09/13/2024 2:00 PM EDT Laboratory Laboratory, Jayesh Moy [address] [place] [address] [phone] [facility] [address] [place] [address] 09/15/2024 9:30 AM EDT Telemedicine Pharmacy, [facility] 132 [facility] [place] [address] [facility] 132 [facility] [place] [address] 09/15/2024 11:30 AM EDT Office Visit Hematology/Oncology [facility] [address] [phone] Miesha Dawson CRNP 400 [place] [address] 09/29/2024 1:00 PM EDT Office Visit Family [facility] 132 [facility] [place] [address] Jadiel Epstein CRNP 132 [facility] [place] [address] 10/18/2024 2:20 PM EDT Telemedicine Hepatology, [place] [address] [place], [place] [phone] Enid Saldnaa, [address], [place] [phone] 11/10/2024 12:30 PM EDT Telemedicine Psychiatry [facility] [address] [place] [address] Nhi Fritz CRNP [address] [place] [address] 11/18/2024 2:40 PM EDT Office Visit Nephrology, [facility] [address] [address] Jonathan Mathew MD [address] [place] [address] 12/14/2024 12:20 PM EDT Office Visit [facility] 132 [facility] [place] [address] Scott Weldon MD [address] [place] [address] 06/16/2025 11:40 AM EST Office Visit Family [facility] [address] [place] [address] Scott Weldon MD [address] [place] [address] Scheduled Procedures Name Priority Associated Diagnoses Date/Ti [...] , 04/20/2024, Additional history exists Albumin/Creatinine Ratio 05/16/20252 024, 07/23/2023, 04/06/2023, Additional history exists CKD PHOS USE SMARTSET 84536 05/16/2025 12/0 02/2024, 10/22/2023, 10/02/2023, Additional history exists Depression Monitoring 05/17/2025 05/17/2024 CKD HGB USE SMARTSET 54067 08/22/202508/22, 08/22/2024, 07/11/2024, Additional history exists Pap Smear 09/07/2026 09/08/2023, 1110/2014, 04/12/2015, Additional history exists DTap/Tdap Vaccines (3 [...] this encounter Medical Devices Implanted Type Area Cosmetology Instructor Device Identifier Shelf Expiration Date Model / Serial / Lot Neurostimul Intellis Adaptiv - [id number] - [id number] Implanted:Qty: 1 on 08/22/2022 by Rafia Small MD at OR [facility] N/A: Spine Lumbar [employer] 06/21/2023 [id number] / [id number] / Description:battery Medtronic Lead Kit 60 Cm Implanted:Qty: 1 on 08/22/2022 by Rafia Small MD at OR [facility] N/A: Spine Lumbar 02/01/2026 [id number] / / [id number] Medtronic Lead Kit 60cm Implanted:Qty: 1 on 08/22/2022 by Rafia Small MD at OR [facility] N/A: Spine Lumbar 03/21/2026 [id number] / / [id number] Envelope Tyrx Med Antibacteril - [id number] Implanted:Qty: 1 on 08/22/2022 by Rafia Small MD at OR [facility] N/A: Spine Lumbar [employer] 03/10/2023 [id number] / / [id number] Hemostatic Clip Res 235cm - [id number] Implanted:Qty: 4 on 10/05/2023 by Aj Pruett DO at ENDOSCOPY [facility] ENDOSCOPY 02/03/2026 [id number] / / Hemostatic Clip Res 235cm - [id number] Implanted:Qty: 1 on 10/05/2023 by Aj Pruett DO at ENDOSCOPY [facility] : ENDOSCOPY 02/02/2026 [id number] / / documented as of this encounter [...] Power of Attor narda? No Care Teams Property Management Coordinator Relationship Specialty Start Date End Date Scott Weldon MD 132 [place] [address] PCP - General Family Medicine 08/03/18 documented as of this encounter
--- OUTSIDE RECORDS SUMMARY | 2024-09-10 21:13 | External Medical Summary | Summary of Care ---
Author Name Unknown Organization [facility] Address [address] [place] [address] Phone [phone] Care Team Providers Care Child And Family Services Specialist Name Role Phone Scott Weldon MD Primary Care Provider + Reason for Visit * Reason Onset Date Comments Patient Assistance Program 07/12/2024 Sangeeta mckeon Encounter Details Date Type Department Care Team (Late st Contact Info) Description 07/12/2024 Telephone Pharmacy, [facility]esh [facility] [address] [facility] [phone] Danielle Anderson, [facility] 200 [facility] [place] [address] Patient Assistance Program (Jardiance) Allergies Active Allergy Reactions Criticality Noted Date Comments Naproxen Sodium Bleeding High 11/29/2013 Pollen 12/03/2022 Seasonal Food (See Comments) Anaphylaxis High 04/20/2019 Hot peppers (oils) Kiwi Extract Anaphylaxis High 04/20/2019 documented as of this encounter (statuses as of 08/29/2024) Medications insulin glargine (LANTUS SOLOSTAR) 100 UNIT/ML [...] 5 02/18/20 17 Active Insulin Infusion Pump ([employer] 630G INSULIN PUMP) KITIndications:Ty pe 2 diabetes [...] suspected opioid overdose. Seek immediate medical attention. [email or web address] [email or web address]/[email or web address]?v=[email or web address] 1 Each 3 11/28/19 23 Active NovoLIN [...] MG/DOSE)) Inject under the skin. Obtaining from [employer] Active Atorvastatin Calcium 40 MG Oral Tablet (Lipitor)Indicati ons:Dyslipidemia, goal LDL below 100 Take 1 Tablet by mouth at bedtime. 90 Tablet 2 06/11/19 25 Active Empagliflozin 10 MG Oral Tablet (Jardiance)Indica tions:Type 2 diabetes mellitus with hemoglobin A1c goal of less than 8.0% (HCC) Take 1 Tablet by mouth in the morning. 90 Tablet 2 06/11/19 25 Active Magnesium Oxide -Mg Supplement 400 (240 Mg) MG Oral Tablet (Mag-Ox)Indicatio ns:Hypomagnesemia Take 1 Tablet by mouth in the morning. 90 Tablet 2 06/11/19 25 Active Pantoprazole Sodium 40 MG Oral [...] 25 Active Baclofen 10 MG Oral Tablet (Lioresal)Indicat [...] 25 Active Loratadine 10 MG Oral Tablet (Claritin)Indicat ions:Allergic rhinitis Take 1 Tablet by mouth in [...] Anxiety. 90 Tablet 3 07/07/19 25 Active Pregabalin 100 MG Oral Capsule (Lyrica)Indicatio ns:Bilateral low back pain with sciatica, sciatica laterality unspecified, unspecified chronicity Take 1 Capsule by mouth in the morning and 1 Capsule at noon and 1 Capsule before bedtime. 300 Capsule 1 4 4:07 PM EST 02/13/20 24 025 Disconti nued(Ref ill) Buprenorphine 5 MCG/HR Transdermal Patch Weekly (Butrans)Indicati ons:Controlled substance agreement signed,Chronic bilateral low back pain with sciatica, sciatica laterality unspecified,Chron ic pain syndrome Place 1 Patch topically on the skin once a week. 4 Patch 06/11/19 25 025 Disconti nued(Ref ill) metFORMIN HCl ER 500 MG Oral Tablet Extended Release 24 Hour (Glucophage XR) Take 2 Tablets by mouth daily. 025 Disconti nued(Ref ill) documented as of this encounter (statuses as of 08/29/2024) Active Problems Problem Noted Date Diagnosed Date [...] 1y trigger shot/SI injection consent signed Family friend[facility]. Son Ricky-fall. Also son Hieu. [...] as of this encounter (statuses as of 08/29/2024) Resolved Problems Problem Noted Date Diagnosed Date [...] (09/03/2009): Per Obesity Taxonomy Coronary atherosclerosis of [place] coronary artery 09/15/2008 10/03/2008 Malaise and fatigue [...] as of this encounter (statuses as of 08/29/2024) Immunizations Name Administration Dates Next Due COVID-19 mRNA, LNP-s, No Pre serve, 2-Dose Series (Ventrix) 11/08/2020,10/11/2020 HEP A - Hepatitis A (Adult > 18 yrs) 04/11/2011, 09/20/2010 Hepatitis B, 20+ yrs 07/05/2015 Pneumococcal Conjugate Vacci ne, 20-valent (Fymlipz02) 03/13/2023 Pneumococcal Polysaccharide PPV23 (Pneumovax) 02/19/2018,03/09/2007 Seasonal [...] * Telephone Encounter - Danielle Anderson, [facility] - 08/29/2024 1:20 PM EDT Pt recently denied [employer] Cares PAP. Please call patient to discuss other options. Preference would be farxiga 10 mg daily. Thank you Danielle Anderson PharmD, BCACP Clinical Pharmacist Medication Therapy Disease Management 08/29/2024, 1:20 PM * Telephone Encounter - Danielle Anderson RPh - 07/12/2024 1:46 PM EST Filled out and faxed enrollment forms for patient to get Jardiance 10 mg from [employer] [facility]. Received successful confirmation of fax. Forms scanned into chart. Danielle Anderson PharmD Clinical Pharmacist Medication Therapy Disease Management 07/12/2024, 1:55 PM documented in this encounter Plan of Treatment Upcoming Encounters Date Type Department Care Team (Late st Contact Info) Description 09/08/2024 8:00 AM EDT Imaging [facility] [address] [place] [phone] 09/09/2024 8:00 AM EDT Office Visit Family Practice [facility] [address] [place] [address] Vera Rojo DO [address] [place] [address] [address] 09/13/2024 1:00 PM EDT Office Visit Pharmacy, Jayesh [address] [place] [phone] Jay[facility] [address] [facility] [place] [address] 09/13/2024 2:00 PM EDT Laboratory Laboratory, Jayesh Moy [address] [place] [address] [phone] [facility] [address] [place] [address] [address] 09/15/2024 9:30 AM EDT Telemedicine Pharmacy, [facility] 132 [facility] [place] [address] [facility] 132 [facility] [address] 09/15/2024 11:30 AM EDT Office Visit Hematology/Oncology [facility] 200 [facility] [place] Cooper [phone] Miesha Dawson CRNP 400 [facility] [address] 09/29/2024 1:00 PM EDT Office Visit Family Practice [facility] 132 [facility] [place] [address] Jadiel Epstein CRNP [facility] [address] 10/18/2024 2:20 PM EDT Telemedicine Hepatology, [place] [address] [place], [place] [phone] Enid Saldana, [address] [place] [address] 11/10/2024 12:30 PM EDT Telemedicine Psychiatry [facility] [address] [place] [address] Nhi Fritz CRNP [address] [place] [address] 11/18/2024 2:40 PM EDT Office Visit Nephrology, [facility] 200 [facility] [place] [address] Jonathan Mathew MD [address] [place] [address] 12/14/2024 12:20 PM EDT Office Visit [facility] [address] [place] [address] Scott Weldon MD [address] [place] [address] 06/16/2025 11:40 AM EST Office Visit [facility] [address] [place] [address] Scott Weldon MD [address] [place] [address] Scheduled Procedures Name Priority Associated Diagnoses Date/Ti [...] , 04/20/2024, Additional history exists Albumin/Creatinine Ratio 05/16/202505/16/ 024, 07/23/2023, 04/06/2023, Additional history exists CKD PHOS USE SMARTSET 43100 05/16/202502/2024, 10/22/2023, 10/02/2023, Additional history exists Depression Monitoring 05/17/2025 05/17/2024 CKD HGB USE SMARTSET 78381 08/22/202508/22, 08/22/2024, 07/11/2024, Additional history exists Pap [...] this encounter Medical Devices Implanted Type Area Shear Helper Device Identifier Shelf Expiration Date Model / Serial / Lot Neurostimul Intellis Adaptiv - [id number] - [id number] Implanted:Qty: 1 on 08/22/2022 by Rafia Small MD at OR [facility] N/A: Spine Lumbar [employer] 06/21/2023 [id number] / [id number] / Description:battery Medtronic Lead Kit 60 Cm Implanted:Qty: 1 on 08/22/2022 by Rafia Small MD at OR [facility] N/A: Spine Lumbar 02/01/2026 [id number] / / [id number] Medtronic Lead Kit 60cm Implanted:Qty: 1 on 08/22/2022 by Rafia Small MD at OR [facility] N/A: Spine Lumbar 03/21/2026 [id number] / / [id number] Envelope Tyrx Med Antibacteril - [id number] Implanted:Qty: 1 on 08/22/2022 by Rafia Small MD at OR [facility] N/A: Spine Lumbar [employer] 03/10/2023 [id number] / / [id number] Hemostatic Clip Res 235cm - [id number] Implanted:Qty: 4 on 10/05/2023 by Aj Pruett DO at ENDOSCOPY [facility] : ENDOSCOPY 02/03/2026 [id number] / / Hemostatic Clip Res 235cm - [id number] Implanted:Qty: 1 on 10/05/2023 by Aj Pruett DO at ENDOSCOPY [facility] : ENDOSCOPY 02/02/2026 [id number] / / documented as of this encounter Visit Diagnoses Diagnosis Type 2 diabetes mellitus with hemoglobin A1c goal of less than 8.0% ([facility])- Primary documented in this encounter Advance Directives [...] Power of Attor narda? No Care Teams Child And Family Services Specialist Relationship Specialty Start Date End Date Scott Weldon MD [address] [place] [address] PCP - General Family Medicine 08/03/18 documented as of this encounter
--- OUTSIDE RECORDS SUMMARY | 2024-09-10 21:14 | External Medical Summary | Summary of Care ---
Author Name Unknown Organization [facility] Address [address] [facility] [place] [address] Phone [phone] Care Team Providers Care Scientific Technical Writer Name Role Phone Scott Weldon MD Primary Care Provider + Encounter Details Date Type Department Care Team (Late st Contact Info) Description 08/05/2024 Orders Only Hematology/Oncology [facility] [place] 200 [facility] [place] [phone] Sunil Bourgeois MD 200 [facility] [place] [address] Allergies Active Allergy Reactions Criticality Noted Date Comments Naproxen Sodium Bleeding High 11/29/2013 Pollen 12/03/2022 Seasonal Food (See Comments) Anaphylaxis High 04/20/2019 Hot peppers (oils) Kiwi Extract Anaphylaxis High 04/20/2019 documented as of this encounter (statuses as of 08/19/2024) Medications insulin glargine (LANTUS SOLOSTAR) 100 UNIT/ML [...] suspected opioid overdose. Seek immediate medical attention. [email or web address]://[email or web address]?v=[email or web address] 1 Each 3 11/28/19 23 Active NovoLIN [...] MG/DOSE)) Inject under the skin. Obtaining from [employer] Active Atorvastatin Calcium 40 MG Oral Tablet [...] Anxiety. 90 Tablet 3 07/07/19 25 Active Buprenorphine 5 MCG/HR Transdermal Patch Weekly (Butrans)Indicatio ns:Controlled substance agreement signed,Chronic bilateral low back pain with sciatica, sciatica laterality unspecified,Chroni c pain syndrome Place 1 Patch topically on the skin once a week. 4 Patch 07/27/19 25 Active documented as of this encounter (statuses as of 08/19/2024) Active Problems Problem Noted Date Diagnosed Date Seasonal affective disorder 08/11/2024 Other pancytopenia 06/30/2024 [...] as of this encounter (statuses as of 08/19/2024) Resolved Problems Problem Noted Date Diagnosed Date [...] (09/03/2009): Per Obesity Taxonomy Coronary atherosclerosis of [place] coronary artery 09/15/2008 10/03/2008 Malaise and fatigue [...] as of this encounter (statuses as of 08/19/2024) Immunizations Name Administration Dates Next Due COVID-19 mRNA, LNP-s, No Pre serve, 2-Dose Series (Pfizer) 11/08/2020,10/11/2020 HEP A - Hepatitis A (Adult > 18 yrs) 04/11/2011, 09/20/2010 Hepatitis B, 20+ yrs 07/05/2015 Pneumococcal Conjugate Vacci ne, 20-valent (Tbdzrvl40) 03/13/2023 Pneumococcal Polysaccharide PPV23 (Pneumovax) 02/19/2018,03/09/2007 Seasonal [...] No 05/17/2024 Does the household have a unm cancer centerlar source of income? (Household - for [...] Care Team (Late st Contact Info) Description 08/22/2024 3:00 PM EDT Hem/Onc Treatment Hematology/Oncology Treatment, [place] [address] [place] [address] 09/08/2024 8:00 AM EDT Imaging [facility] 2nd Floor [facility]iology, [place] [facility] [place] [phone] 09/13/2024 1:00 PM EDT Office Visit Pharmacy, Jayesh Regan [address] [place] [address] [phone] [facility] [address] [place] [address] [place] Mcconnell [address] 09/15/2024 9:30 AM EDT Telemedicine Pharmacy, [facility] 132 [facility] [address] [facility] 132 [facility] [address] 09/15/2024 11:30 AM EDT Office [facility] [address] [phone] Miesha Dawson CRNP 400 [place] [address] 09/29/2024 1:00 PM EDT Office Visit [facility] 132 [facility] [address] Jadiel Epstein CRNP 132 [facility] [address] 10/18/2024 2:20 PM EDT Telemedicine Hepatology, [place] [address] [place] [address] Enid Saldana, [address], [place] [phone] 11/10/2024 12:30 PM EDT Telemedicine Psychiatry [facility] 68 [place] [address] Nhi Fritz CRNP 68 [place] [address] 11/18/2024 2:40 PM EDT Office Visit Nephrology, [facility] [address] [address] Jonathan Mathew MD [address] [place] [address] 12/14/2024 12:20 PM EDT Office Visit [facility] 132 [facility] [place] [address] Scott Weldon MD [address] [place] [address] 06/16/2025 11:40 AM EST Office Visit [facility] [address] [place] [address] Scott Weldon MD [address] [place] [address] Scheduled Procedures Name Priority Associated Diagnoses Date/Ti [...] 05/16/2025 024, 07/23/2023, 04/06/2023, Additional history exists Depression Monitoring 05/17/2025 05/17/2024 GFR 07/11/2025 07/11/2024, 01/0 12/2024, 05/16/2024, Additional history exists Pap Smear 09/07/2026 09/08/2023, 11/0 10/2014, 04/12/2015, Additional history exists DTap/Tdap Vaccines [...] this encounter Medical Devices Implanted Type Area Precision Assembly Inspector Device Identifier Shelf Expiration Date Model / Serial / Lot Neurostimul Intellis Adaptiv - [id number] - [id number] Implanted:Qty: 1 on 08/22/2022 by Rafia Small MD at OR [facility] N/A: Spine Lumbar [employer] 06/21/2023 [id number] / [id number] / Description:battery Medtronic Lead Kit 60 Cm Implanted:Qty: 1 on 08/22/2022 by Rafia Small MD at OR [facility] N/A: Spine Lumbar 02/01/2026 [id number] / / [id number] Medtronic Lead Kit 60cm Implanted:Qty: 1 on 08/22/2022 by Rafia Small MD at OR [facility] N/A: Spine Lumbar 03/21/2026 [id number] / / [id number] Envelope Tyrx Med Antibacteril - [id number] Implanted:Qty: 1 on 08/22/2022 by Rafia Small MD at OR [facility] N/A: Spine Lumbar [employer] 03/10/2023 [id number] / / [id number] Hemostatic Clip Res 235cm - [id number] Implanted:Qty: 4 on 10/05/2023 by Aj Pruett DO at ENDOSCOPY [facility] : ENDOSCOPY 02/03/2026 [id number] / / Hemostatic Clip Res 235cm - [id number] Implanted:Qty: 1 on 10/05/2023 by Aj Pruett DO at ENDOSCOPY [facility] : ENDOSCOPY 02/02/2026 [id number] / / documented as of this encounter [...] Power of Attor narda? No Care Teams Scientific Technical Writer Relationship Specialty Start Date End Date Scott Weldon MD [address] [place] [address] PCP - General Family Medicine 08/03/18 documented as of this encounter
--- OUTSIDE RECORDS SUMMARY | 2024-09-10 21:14 | External Medical Summary ---
Author Name Unknown Address Unknown Organization K09:[facility] [place] [address] Laboratory Report Ordering Provider Test Date Status ABBIE,SALMON 08/22/2024 15:11:26 Final Observation Date Value Abnormality Reference (Units ) Status Nucleated erythrocytes/100 leukocytes [Ratio] in Blood by Automated count 08/22/2024 15:11:26 Final Performing Location [facility] [place] [address]
--- OUTSIDE RECORDS SUMMARY | 2024-09-10 21:14 | External Medical Summary ---
Author Name Unknown Address Unknown Organization K01:LABORATORY C - [address] [place] [address] Laboratory Report Ordering Provider Test Date Status MARY LOUIE 08/22/2024 15:11:26 Final Observation Date Value Abnormality Reference (Units ) Status GGT 08/22/2024 15:11:26 289 Above high normal <= 40 (U/L) Final Performing Location [facility] - [address] [place] [address]
--- OUTSIDE RECORDS SUMMARY | 2024-09-10 21:14 | External Medical Summary ---
Author Name Unknown Address Unknown Organization K09:[facility] [place] [address] Laboratory Report Ordering Provider Test Date Status LUIS ANTONIO LEIVA 08/22/2024 15:11:26 Final Observation Date Value Abnormality Reference (Units ) Status WBC, Total 08/22/2024 15:11:26 5.02 4.00-10.8 0 (K/uL) Final RBC 08/22/2024 15:11:26 4.19 3.85-5.15 (M/uL) Final Hemoglobin 08/22/2024 15:11:26 11.8 Below low normal 12 .0-15.3 (g/dL) Final HCT 08/22/2024 15:11:26 36.8 36.0-45.2 (%) Final MCV 08/22/2024 15:11:26 87.8 81.5-97.5 (fL) Final MCH 08/22/2024 15:11:26 28.2 27.0-34.0 (pg) Final MCHC 08/22/2024 15:11:26 32.1 32.0-36.0 (g/dL) Final RDW 08/22/2024 15:11:26 14.1 11.5-15.5 (%) Final Platelets 08/22/2024 15:11:26 68 Below low normal 140 -400 (K/uL) Final Consistent with previous res ults. MPV 08/22/2024 15:11:26 10.1 6.6-11.1 ( fL) Final Performing Location [facility] [place] [address]
--- OUTSIDE RECORDS SUMMARY | 2024-09-10 21:14 | External Medical Summary ---
Author Name Unknown Address Unknown Organization K01:LABORATORY [facility] [place] - [address] [place] [address] Laboratory Report Ordering Provider Test Date Status NAJMA JACOBSON 08/22/2024 15:11:26 Final Observation Date Value Abnormality Reference (Units ) Status Lipase 08/22/2024 15:11:26 55 13-60 (U/L ) Final Performing Location LABORATORY C - [address] [place] [address]
--- OUTSIDE RECORDS SUMMARY | 2024-09-10 21:14 | External Medical Summary | Summary of Care ---
Author Name Unknown Organization [facility] Address [address] [facility] [place] [address] Phone [phone] Care Team Providers Care Taxation Economist Name Role Phone Scott Weldon MD Primary Care Provider + Reason for Visit * Reason Onset Date Comments Advice 08/18/2024 Encounter Details Date Type Department Care Team (Late st Contact Info) Description 08/18/2024 Telephone Family Practice [facility] [address] [place] [address] Scott Weldon MD [address] [place] [address] Advice Allergies Active Allergy Reactions Criticality Noted Date Comments Naproxen Sodium Bleeding High 11/29/2013 Pollen 12/03/2022 Seasonal Food (See Comments) Anaphylaxis High 04/20/2019 Hot peppers (oils) Kiwi Extract Anaphylaxis High 04/20/2019 documented as of this encounter (statuses as of 08/23/2024) Medications insulin glargine (LANTUS SOLOSTAR) 100 UNIT/ML [...] As directed 1 Kit 3 023 Active Naloxone HCl 4 MG/0.1ML Nasal Liquid (Narcan Nasal)Indication s:Controlled substance agreement signed,Chronic pain syndrome Administer 1 spray into 1 nostril for suspected opioid overdose. Seek immediate medical attention. [email or web address] 1 Each 3 023 Active NovoLIN R ReliOn 100 UNIT/ML Injection [...] NEEDED FOR NAUSEA 30 Tablet 024 Active Ozempic (2 MG/DOSE) 8 MG/3ML Subcutaneous Solution Pen-injector (Semaglutide (2 MG/DOSE)) Inject under the skin. Obtaining from [employer] Active Atorvastatin Calcium 40 MG Oral Tablet (Lipitor)Indicat ions:Dyslipidemi a, goal LDL below 100 Take 1 Tablet by mouth at bedtime. 90 Tablet 2 025 Active Empagliflozin 10 MG Oral Tablet (Jardiance)Indic ations:Type 2 diabetes mellitus with hemoglobin A1c goal of less than 8.0% (HCC) Take 1 Tablet by mouth in the morning. 90 Tablet 2 025 Active Magnesium Oxide -Mg Supplement 400 (240 Mg) MG Oral Tablet (Mag-Ox)Indicati ons:Hypomagnesem ia Take 1 Tablet by mouth in the morning. 90 Tablet 2 025 Active Pregabalin 100 MG Oral Capsule (Lyrica)Indicati ons:Bilateral low back pain with sciatica, sciatica laterality unspecified, unspecified chronicity Take 1 Capsule by mouth in the morning and 1 Capsule at noon and 1 Capsule before bedtime. 300 Capsule 1 025 Active Pantoprazole Sodium 40 MG Oral Tablet Delayed Release (Protonix)Indica tions:Esophageal varices without bleeding, unspecified esophageal varices type (HCC),Colitis Take 1 Tablet by mouth in the morning. 90 Tablet 2 025 Active Potassium Chloride Laura ER 20 MEQ Oral Tablet Extended Release Take 1 Tablet by mouth in the morning. 90 Tablet 2 025 Active traZODone HCl 100 MG Oral Tablet (Desyrel) Take 1-2 Tablets by mouth at bedtime. 180 Tablet 025 Active Baclofen 10 MG Oral Tablet (Lioresal)Indica tions:Back spasm Take 1 Tablet by mouth in the morning and 1 Tablet at noon and 1 Tablet before bedtime. 270 Tablet 1 025 Active Albuterol Sulfate HFA 108 (90 Base) MCG/ACT Inhalation Aerosol Solution Inhale 2 puffs by mouth every 6 hours as needed for shortness of breath 20.1 g 025 Active Metoclopramide HCl 5 MG Oral Tablet (Reglan) Take 1 Tablet by mouth in the morning and 1 Tablet at noon and 1 Tablet in the evening. Take before meals. If needed for nausea. 300 Tablet 025 Active Furosemide 40 MG Oral Tablet (Lasix) Take 1 Tablet by mouth every other day. 50 Tablet 3 025 Active Meclizine HCl 25 MG Oral Tablet (Antivert)Indica tions:Vertigo Take 1 Tablet by mouth 3 times a day as needed for Dizziness. 30 Tablet 025 Active Loratadine 10 MG Oral Tablet (Claritin)Indica tions:Allergic rhinitis Take 1 Tablet by mouth in the morning. For allergies.. 90 Tablet 3 025 Active Dicyclomine HCl 20 MG Oral Tablet (Bentyl) Take 1 Tablet by mouth 2 times a day as needed (pain or cramping). 180 Tablet 2 025 Active Eszopiclone 2 MG Oral Tablet (Lunesta) Take 1 Tablet by mouth at bedtime. 30 Tablet 1 025 Active Escitalopram Oxalate 20 MG Oral Tablet (Lexapro) Take 1 Tablet by mouth in the morning. 90 Tablet 2 025 Active hydrOXYzine HCl 25 MG Oral Tablet Take 1 Tablet by mouth 3 times a day as needed for Anxiety. 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 180 Tablet 4 025 Active Mupirocin 2 % External Ointment (Bactroban)Indic ations:Celluliti s of abdominal wall Apply topically to affected area 3 times a day. To affected area (sores on stomach) for up to 14 days. 22 g 1 025 Active Buprenorphine 5 MCG/HR Transdermal Patch Weekly (Butrans)Indicat ions:Controlled substance agreement signed,Chronic bilateral low back pain with sciatica, sciatica laterality unspecified,Truant Officer sada pain syndrome Place 1 Patch topically on the skin once a week. 4 Patch 025 2024 Discontinued(R efill) Mupirocin Calcium 2 % External Cream (Bactroban)Indic ations:Celluliti s of abdominal wall Apply topically to affected area 3 times a day. Apply for 14 days 30 g 1 025 2024 Discontinued documented as of this encounter (statuses as of 08/23/2024) Active Problems Problem Noted Date Diagnosed Date [...] as of this encounter (statuses as of 08/23/2024) Resolved Problems Problem Noted Date Diagnosed Date [...] (09/03/2009): Per Obesity Taxonomy Coronary atherosclerosis of northway coronary artery 09/15/2008 10/03/2008 Malaise and fatigue [...] as of this encounter (statuses as of 08/23/2024) Immunizations Name Administration Dates Next Due COVID-19 mRNA, LNP-s, No Pre serve, 2-Dose Series (bead Button) 11/08/2020,10/11/2020 HEP A - Hepatitis A (Adult > 18 yrs) 04/11/2011, 09/20/2010 Hepatitis B, 20+ yrs 07/05/2015 Pneumococcal Conjugate Vacci ne, 20-valent ([id number]) 03/13/2023 Pneumococcal Polysaccharide PPV23 (Pneumovax) 02/19/2018,03/09/2007 Seasonal [...] encounter Miscellaneous Notes * Telephone Encounter - Ayah Abrams CRNP - 08/23/2024 3:08 PM EDT Inboxologist Covering Provider See TE for today All replies or additional communication must be routed to the PCP * Telephone Encounter - Josselyn Tellez LPN - 08/22/2024 8:56 AM EDT Pt notified ointment sent to replace cream. Pt denies fever, but does c/o increased pain and redness of lower abdomen. Has iron infusion scheduled today at 3 PM. Requesting to be contacted at cell [phone] with anyadditional recommendations. * Telephone Encounter - Zulema Caro MD - 08/21/2024 6:07 PM EDT Appears Rx was sent for mupirocin cream. Ointment is significantly less expensive. Please call patient to make sure does not have worsening signs/sx: -- increase in pain -- spreading redness -- fever Rx sent for ointment. * Telephone Encounter - Angeli Carrillo OSA - 08/19/2024 2:53 PM EDT Carmen calling back in Following up The Cream is too expensive. Please would someone give her a callback or call something different in. 24-48 Hour * Telephone Encounter - Madelyn Leonard OSA - 08/18/2024 12:23 PM EDT Carmen wanted to let you know she didn't get the cream because it was too expensive and now she has discharge coming from her belly. documented in this encounter Plan of Treatment Upcoming Encounters Date Type Department Care Team (Late st Contact Info) Description 09/08/2024 8:00 AM EDT Imaging [facility] 2nd Floor Cardiology, [place] [address] [place] [phone] 09/13/2024 1:00 PM EDT [facility] [phone] [address] [address] 09/13/2024 2:00 PM EDT [facility] [address] [facility] [place] [phone] [place] Laboratory [address] [facility] [address] 09/15/2024 9:30 AM EDT Telemedicine Pharmacy, [facility] [address] [facility] [place] [address] [place] [address] 09/15/2024 11:30 AM EDT Office Visit Hematology/Oncology [facility] [address] [facility] [place] [phone] Miesha Dawson CRNP [address] [place] [address] 09/29/2024 1:00 PM EDT Office Visit Family Practice [facility] [address] [place] [address] Jadiel Epstein CRNP [address] [facility] [place] [address] 10/18/2024 2:20 PM EDT Telemedicine Hepatology, [place] [address] [place], [place] [phone] Enid Saldana, DO [address] [place], [place] [id number] 11/10/2024 12:30 PM EDT Telemedicine Psychiatry [facility] [address] [place] [address] Nhi Fritz CRNP [address] [place] [address] 11/18/2024 2:40 PM EDT Office Visit Nephrology, [facility] [address] [facility] [place] [address] Jonathan Mathew MD [address] [facility] [place] [place] [address] 12/14/2024 12:20 PM EDT Office Visit [facility] [address] [place] [address] Scott Weldon MD [address] [facility] [place] [address] 06/16/2025 11:40 AM EST Office Visit [facility] [address] [place] [address] Scott Weldon MD 132 [facility] [place] [address] Scheduled Procedures Name Priority Associated Diagnoses Date/Ti [...] 0 12/2023, 07/23/2023, Additional history exists Diabetic Eye Exam 04/20/2025 04/20/2024, , 04/20/2024, Additional history exists Albumin/Creatinine Ratio 05/16/2025 024, 07/23/2023, 04/06/2023, Additional history exists Depression Monitoring 05/17/2025 05/17/2024 GFR 07/11/2025 07/11/2024, 010 12/2024, 05/16/2024, Additional history exists Pap Smear [...] this encounter Medical Devices Implanted Type Area Dry Can Tender Device Identifier Shelf Expiration Date Model / Serial / Lot Neurostimul Intellis Adaptiv - [id number] - [id number] Implanted:Qty: 1 on 08/22/2022 by Rafia Small MD at OR [facility] N/A: Spine Lumbar [employer] 06/21/2023 [id number] / [id number] / Description:battery Medtronic Lead Kit 60 Cm Implanted:Qty: 1 on 08/22/2022 by Rafia Small MD at OR [facility] N/A: Spine Lumbar 02/01/2026 [id number] / / [id number] Medtronic Lead Kit 60cm Implanted:Qty: 1 on 08/22/2022 by Rafia Small MD at OR [facility] N/A: Spine Lumbar 03/21/2026 [id number] / / [id number] Envelope Tyrx Med Antibacteril - [id number] Implanted:Qty: 1 on 08/22/2022 by Rafia Small MD at OR [facility] N/A: Spine Lumbar [employer] 03/10/2023 [id number] / / [id number] Hemostatic Clip Res 235cm - [id number] Implanted:Qty: 4 on 10/05/2023 by Aj Pruett DO at ENDOSCOPY [facility]COPY 02/03/2026 [id number] / / Hemostatic Clip Res 235cm - [id number] Implanted:Qty: 1 on 10/05/2023 by Aj Pruett DO at ENDOSCOPY [facility] [facility] ENDOSCOPY 02/02/2026 [id number] / / documented as of this encounter Visit Diagnoses Diagnosis Cellulitis of abdominal wall- Primary Cellulitis and abscess of trunk documented in this encounter Advance Directives * [...] Power of Attor narda? No Care Teams Taxation Economist Relationship Specialty Start Date End Date Scott Weldon MD [address] [facility] [place] [address] PCP - General Family Medicine 08/03/18 documented as of this encounter
--- OUTSIDE RECORDS SUMMARY | 2024-09-10 21:14 | External Medical Summary | Summary of Care ---
Author Name Unknown Organization [facility] Address [address] [place] [facility] [place] [address] Phone [phone] Care Team Providers Care Imaging Account Manager Name Role Phone Scott Weldon MD Primary Care Provider + Reason for Visit * Reason Onset Date Comments Medication Discussion 08/12/2024 Ozempic re start? Encounter Details Date Type Department Care Team (Late st Contact Info) Description 08/12/2024 Telephone Pharmacy, Jayesh Regan [address] [place] [phone] Danielle Anderson, formerly [facility] [address] [place] [address] Medication Discussion (Ozempic restart?) Allergies Active Allergy Reactions Criticality Noted Date [...] 5 02/18/20 17 Active Insulin Infusion Pump (MINIMMicroinox 630G INSULIN PUMP) KITIndications:Typ e 2 diabetes [...] suspected opioid overdose. Seek immediate medical attention. [email or web address] 1 Each 3 11/28/19 23 Active NovoLIN [...] MG/DOSE)) Inject under the skin. Obtaining from [employer] Active Atorvastatin Calcium 40 MG Oral Tablet [...] a week. 4 Patch 07/27/19 25 Active metFORMIN HCl ER 500 MG Oral Tablet Extended Release 24 Hour (Glucophage XR)Indications:Typ e II diabetes mellitus with neurological manifestations (HCC) Take 1 Tablet by mouth 2 times a day with morning and evening meals. 180 Tablet 4 08/12/19 25 Active Mupirocin Calcium 2 % External Cream (Bactroban)Indicat ions:Cellulitis of abdominal wall Apply topically to affected area 3 times a day. Apply for 14 days 30 g 1 08/13/19 25 Active documented as of this encounter [...] mRNA, LNP-s, No Pre serve, 2-Dose Series ([employer]) 11/08/2020,10/11/2020 HEP A - Hepatitis A (Adult > 18 yrs) 04/11/2011, 09/20/2010 Hepatitis B, 20+ yrs 07/05/2015 Pneumococcal Conjugate Vacci ne, 20-valent (Wzepaki14) 03/13/2023 Pneumococcal Polysaccharide PPV23 (Pneumovax) 02/19/2018,03/09/2007 Seasonal [...] encounter Miscellaneous Notes * Telephone Encounter - Aries Hidalgo LPN - 08/19/2024 11:16 AM EDT I spoke to the patient and explained the providers message to her. * Telephone Encounter - Danielle Anderson RPh - 08/16/2024 3:07 PM EDT Noted by [facility]. I have been making adjustments to her pump to help combat the higher blood sugars. Will await decision about ozempic. Thank you! Danielle Anderson, PharmD, BCACP Clinical Pharmacist Medication Therapy Disease Management 08/16/2024, 3:07 PM * Telephone Encounter - Kathie Soares LPN - 08/16/2024 1:01 PM EDT Sent MyG message to patient regarding message from provider. * Addendum Note - Kavon Caro MD - 08/16/2024 12:04 PM EDTAddended by: KAVON CARO on: 08/16/2024 12:04 PM Modules accepted: Orders * Telephone Encounter - Kavon Caro MD - 08/16/2024 11:48 AM EDT Pancreatitis is generally considered a contraindication to GLP-1 agonists list Ozempic. Lipase mildly elevated at last check in May. Recommend repeating lipase off Ozempic to see if it has changed. Ordered. Defer decision on re-starting Ozempic to PCP when he returns. Works with [facility] pharmacist -message forwarded to them to adjust insulin dosing in the meantime. * Telephone Encounter - Danielle Anderson RPh - 08/12/2024 7:34 PM EST Patient is wondering if ozempic can be restarted. States that ozempic has not been taken for 4+ weeks and she has had no changes in her stomach pain/discomfort. States that she has pains that are likely pancreatitis (most recently in the last week or so) but she avoids and refuses going to the ER for it. These have not improved since stopping ozempic. Her sugars have been uncontrolled since stopping the ozempic with her dexcom showing an average of 270 for the last 14 days. I will notify patient with whatever you decide. Thank you! Danielle Anderson, PharmD, BCACP Clinical Pharmacist Medication Therapy Disease Management 08/12/2024, 7:36 PM documented in this encounter Plan of Treatment Upcoming Encounters Date Type Department Care Team (Late st Contact Info) Description 08/22/2024 3:00 PM EDT Hem/Onc Treatment Hematology/Oncology [address], [address] [address] 09/08/2024 8:00 AM EDT Imaging [facility] 2nd Floor Cardiology, [place] [address] [facility] [address] [place] [phone] 09/13/2024 1:00 PM EDT Office Visit Pharmacy, [place] [facility] [address] [facility] [place] [phone] [place], [address] [address] 09/15/2024 9:30 AM EDT Telemedicine Pharmacy, [facility] [address] [facility] [place] [address] [facility] [address] [place] [address] 09/15/2024 11:30 AM EDT Office Visit Hematology/Oncology [facility] [address] [facility] [phone] Miesha Dawson CRNP [address] [place] [address] 09/29/2024 1:00 PM EDT Office Visit [facility] [address] [place] [address] Jadiel Epstein CRNP [address] [place] [address] 10/18/2024 2:20 PM EDT Telemedicine Hepatology, [place] [address] [place], [place] [phone] Enid Saldana, [address] [place] [address] 11/10/2024 12:30 PM EDT Telemedicine Psychiatry [facility] [address] [place] [phone] Nhi Fritz CRNP [address] [place] [address] 11/18/2024 2:40 PM EDT Office Visit Nephrology, [facility] [address] [place] [address] Jonathan Mathew MD [address] [place] [address] 12/14/2024 12:20 PM EDT Office Visit [facility] [address] [place] [address] Scott Weldon MD [address] [place] [address] 06/16/2025 11:40 AM EST Office Visit [facility] [address] [place] [address] Scott Weldon MD [address] [place] [address] Scheduled Orders Name Type Priority Associated Diagnoses Orde r Schedule LIPASE Lab Routine Elevated lipase Expected: 08/16/2024 (Approximate), Expires: 08/16/2025 Scheduled Procedures Name Priority Associated Diagnoses Date/Ti [...] 09/08/2023, 010 09/2022, 06/14/2020, Additional history exists HbA1c 11/14/2024 05/16/2024, 0 12/2023, 07/23/2023, Additional history exists Diabetic Eye Exam 04/20/2025 04/20/2024, , 04/20/2024, Additional history exists Albumin/Creatinine Ratio 05/16/20252 024, 07/23/2023, 04/06/2023, Additional history exists Depression [...] encounter Medical Devices Implanted Type Area [employer] Program Coordinator Device Identifier Shelf Expiration Date Model / Serial / Lot Neurostimul Intellis Adaptiv - [id number] - [id number] Implanted:Qty: 1 on 08/22/2022 by Rafia Small MD at OR [facility] N/A: Spine Lumbar [employer] 06/21/2023 [id number] / [id number] / Description:battery Medtronic Lead Kit 60 Cm Implanted:Qty: 1 on 08/22/2022 by Rafia Small MD at OR [facility] N/A: Spine Lumbar 02/01/2026 [id number] / / [id number] Medtronic Lead Kit 60cm Implanted:Qty: 1 on 08/22/2022 by Rafia Small MD at OR [facility] N/A: Spine Lumbar 03/21/2026 [id number] / / [id number] Envelope Tyrx Med Antibacteril - [id number] Implanted:Qty: 1 on 08/22/2022 by Rafia Small MD at OR [facility] N/A: Spine Lumbar [employer] 03/10/2023 [id number] / / [id number] Hemostatic Clip Res 235cm - [id number] Implanted:Qty: 4 on 10/05/2023 by Aj Pruett, DO at [facility]COPY [facility] : ENDOSCOPY 02/03/2026 [id number] / / Hemostatic Clip Res 235cm - [id number] Implanted:Qty: 1 on 10/05/2023 by Aj Pruett, DO at ENDOSCOPY [facility] : ENDOSCOPY 02/02/2026 [id number] / / documented as of this encounter Visit Diagnoses Diagnosis Type 2 diabetes mellitus with hemoglobin A1c goal of less than 8.0% (HCC)- Primary Elevated lipase Other nonspecific abnormal serum enzyme levels documented in this encounter Advance Directives * [...] of Attor narda? No Care Teams Imaging Account Manager Relationship Specialty Start Date End Date Scott Weldon MD [address] [place] [address] PCP - General Family Medicine 08/03/18 documented as of this encounter
--- OUTSIDE RECORDS SUMMARY | 2024-09-10 21:14 | External Medical Summary ---
Author Name Unknown Address Unknown Organization K09:[facility] [place] [address] Laboratory Report Ordering Provider Test Date Status LUIS ANTONIO LEIVA 08/22/2024 15:11:26 Final Observation Date Value Abnormality Reference (Units ) Status SYNC LEUKOCYTES IN BLOOD BY AUTOMATED COUNT 08/22/2024 15:11:26 5.02 4.00-10.80 (K/uL) Final Segs 08/22/2024 15:11:26 64.7 40.0-75.0 (%) Final Lymphs % 08/22/2024 15:11:26 20.3 18.0-42.0 (%) Final Monos 08/22/2024 15:11:26 9.8 1.0-11.0 (%) Final Eosinophils 08/22/2024 15:11:26 4.6 0.0-6.0 (%) Final Basos 08/22/2024 15:11:26 0.6 0.0-2.0 (%) Final Absolute Segs 08/22/2024 15:11:26 3.25 1.80-7.70 (K/uL) Final Lymphs, absolute 08/22/2024 15:11:26 1.02 1.00-4.80 (K/ul) Final Monos, Abs 08/22/2024 15:11:26 0.49 0.00-1.10 (K/uL) Final Eos, Abs 08/22/2024 15:11:26 0.23 0.00-0.70 (K/uL) Final Basos, Abs 08/22/2024 15:11:26 0.03 0.00-0.20 (K/uL) Final Performing Location [facility] [address]
--- OUTSIDE RECORDS SUMMARY | 2024-09-10 21:14 | External Medical Summary | Summary of Care ---
Author Name Unknown Organization [facility] Address [address] [facility] [address] Phone [phone] Care Team Providers Care Artificial Flowers Supervisor Name Role Phone Scott Weldon MD Primary Care Provider + Reason for Visit * Reason Comments IV Therapy Venofer Medication Administration Labs from port Encounter Details Date Type Department Care Team (Latest Contact Info) Description 08/22/2024 3:00 PM EDT Hem/Onc Treatment Hematology/Oncology Treatment, [address] [address] Nora, Chair 10 Hem Onc [address] [address] Iron deficiency anemia due to chronic blood loss*; Iron deficiency anemia, unspecified iron deficiency anemia type; Alkaline phosphatase elevation; Elevated lipase; Cirrhosis of liver without ascites, unspecified hepatic [...] 5 02/18/20 17 Active Insulin Infusion Pump (MINIMCornice 630G INSULIN PUMP) KITIndications:Typ e 2 diabetes [...] suspected opioid overdose. Seek immediate medical attention. [email or web address] 1 Each 3 11/28/19 23 Active NovoLIN [...] MG/DOSE)) Inject under the skin. Obtaining from BioStable Active Atorvastatin Calcium 40 MG Oral Tablet [...] days. 22 g 1 08/22/19 25 Active documented as of this encounter [...] (09/03/2009): Per Obesity Taxonomy Coronary atherosclerosis of [place] coronary artery 09/15/2008 10/03/2008 Malaise and fatigue [...] mRNA, LNP-s, No Pre serve, 2-Dose Series (J[employer]) 11/08/2020,10/11/2020 HEP A - Hepatitis A (Adult > 18 yrs) 04/11/2011, 09/20/2010 Hepatitis B, 20+ yrs 07/05/2015 Pneumococcal Conjugate Vacci ne, 20-valent ([id number]) 03/13/2023 Pneumococcal Polysaccharide PPV23 (Pneumovax) 02/19/2018,03/09/2007 Seasonal [...] Sign Reading Time Taken Comments Blood Pressure 124/71 08/22/2024 3:08 PM EDT Pulse 68 08/22/2024 3:08 PM EDT Temperature 36.1 °C (97 °F) 08/22/2024 3:08 PM EDT Respiratory Rate 16 08/22/2024 3:08 PM EDT Oxygen Saturation 95% 08/22/2024 3:08 PM EDT Inhaled Oxygen Concentration - - [...] documented in this encounter Nursing Notes * Aracelis Lisa, BENITA - 08/22/2024 5:20 PM EDT Infusion complete. Patient tolerated well. No complaints at this time. Port needle flushed with 10 ml NSS, blood return noted, and port locked with additional 10 ml NSS. Powell needle removed, intact, gauze dressing applied. Goals: Patient will remain free from injury. Possible barriers to meeting goals: ambulating with IV pole, use of cane Stability of the patient: Moderately stable - low risk of patient condition declining or worsening Summary regarding today's goals: Met: Patient remained free from harm/injury during treatment. Patient left facility in stable condition. * Amada Foote RN - 08/22/2024 3:59 PM EDT Chair 4. Port accessed, some difficulty. 2 RNs needed to access/re-access port and both RNs had difficulty getting into port. Sterile technique was maintained throughout procedure. Once into port, able to flush freely with positive blood return. Labs drawn from port per protocol. While accessing port, patient began to complain of itching and discomfort on her lower abdomen. Shepulled her pants down below naval and has several open areas that were reddened and dry/crusty, some yellowing around the edges. Patient states there had been some pus that had come out of one spot on it, and at that time, it did have an odor. It no longer has an odor now but patient reports it seems like it is getting worse. And it itchy and bothersome to her. She states that her pants get stuckto the sores and the pants end of ripping skin off the sites and making it worse again. She says sometimes the sores have skin that hangs off the tops and it hurts, so she peels it off. RN educated she should not pick skin off the top and she may need a protective layer between pants and sores to prevent it from sticking and peeling off. RN placed TE in chart and routed to Dr. Alvarado since he had previously seen patient, assessed the sores and ordered the Mupirocin cream to use. Patient hs not been using the cream because she reportsthe copay is too expensive and she cannot afford to get the cream to use. Patient is comfortable at this point and denies further needs. Patient instructed on use of heat and [...] Info) Description 09/08/2024 8:00 AM EDT Imaging [facility] [place] [phone] 09/13/2024 1:00 PM EDT Office Visit Pharmacy, Jayesh Moy [facility] [place]én[place] [phone] Jayesh [facility] [address] [place] [address] [place]on[place] [address] 09/13/2024 2:00 PM EDT Laboratory Laboratory, Jayesh Moy [address] [place]én[place] [phone] [facility] [address] [place] [address] 09/15/2024 9:30 AM EDT Telemedicine Pharmacy, [address] [place] [address] [facility] [address] 09/15/2024 11:30 AM EDT Office Visit Hematology/Oncology [facility] [address] [place] [phone] Miesha Dawson CRNP [address] [facility] [place] [address] 09/29/2024 1:00 PM EDT Office Visit [facility] [address] [facility] [place] [address] Jadiel Epstein CRNP 132 [facility] [place] [address] 10/18/2024 2:20 PM EDT Telemedicine Hepatology, [place] [address] [place], [place] [phone] Enid Saldana, [address] [place] [address] 11/10/2024 12:30 PM EDT Telemedicine Psychiatry [facility] [address] [place] [address] Nhi Fritz CRNP [address] [place] [address] 11/18/2024 2:40 PM EDT Office Visit Nephrology, [facility] 200 [facility] [place], [place] [address] Jonathan Mathew MD [facility] [place] [address] 12/14/2024 12:20 PM EDT Office Visit [facility] [address] [facility] [place] [address] Scott Weldon MD [address] [place] [address] 06/16/2025 11:40 AM EST Office Visit Family [facility] [address] [place] [address] Scott Weldon MD [address] [place] [address] Pending Results Name Type Priority Associated Diagnoses Date /Time FERRITIN Lab STAT Iron deficiency anemia, unspecified iron deficiency anemia type 08/22/2024 3:11 PM EDT IRON SCREEN, INCLUDING TIBC Lab STAT Iron deficiency anemia, unspecified iron deficiency anemia type 08/22/2024 3:11 PM EDT GGTP Lab Routine Alkaline phosphatase elevation 08/22/2024 3:11 PM EDT 5' NUCLEOTIDASE Lab Routine Alkaline phosphatase elevation 08/22/2024 3:11 PM EDT LIPASE Lab Routine Elevated lipase 08/22/2024 3:11 PM EDT Scheduled Procedures Name Priority Associated [...] Depression Monitoring 05/17/2025 05/17/2024 GFR 07/11/2025 07/11/2024, 12/2024, 05/16/2024, Additional history exists Pap Smear [...] this encounter Medical Devices Implanted Type Area Field Merchandiser Device Identifier Shelf Expiration Date Model / Serial / Lot Neurostimul Intellis Adaptiv - [id number] - [id number] Implanted:Qty: 1 on 08/22/2022 by Rafia Small MD at OR [facility] N/A: Spine Lumbar [employer] 06/21/2023 [id number] / [id number] / Description:battery Medtronic Lead Kit 60 Cm Implanted:Qty: 1 on 08/22/2022 by Rafia Small MD at OR [facility] N/A: Spine Lumbar 02/01/2026 [id number] / / [id number] Medtronic Lead Kit 60cm Implanted:Qty: 1 on 08/22/2022 by Rafia Small MD at OR [facility] N/A: Spine Lumbar 03/21/2026 [id number] / / [id number] Envelope Tyrx Med Antibacteril - [id number] Implanted:Qty: 1 on 08/22/2022 by Rafia Small MD at OR [facility] N/A: Spine Lumbar [employer] 03/10/2023 [id number] / / [id number] Hemostatic Clip Res 235cm - [id number] Implanted:Qty: 4 on 10/05/2023 by Aj Pruett DO at ENDOSCOPY [facility] END[facility]COPY 02/03/2026 [id number] / / Hemostatic Clip Res 235cm - [id number] Implanted:Qty: 1 on 10/05/2023 by Aj Pruett DO at ENDOSCOPY [facility] : ENDOSCOPY 02/02/2026 [id number] / / documented as of this encounter Procedures Procedure Name Priority Date/Time Associated Diagnosis Comments DIFFERENTIAL, AUTOMATED STAT 08/22/2024 3:11 PM EDT Iron deficiency anemia, unspecified iron deficiency anemia type CBC STAT 08/22/2024 3:11 PM EDT Iron deficiency anemia, unspecified iron deficiency anemia type CBC STAT 08/22/2024 3:11 PM EDT Iron deficiency anemia, unspecified iron deficiency anemia type DIFFERENTIAL, TECHNOLOGIST REVIEW Routine 08/22/2024 3:11 PM EDT Iron deficiency anemia, unspecified iron deficiency anemia type documented in this encounter Results * DIFFERENTIAL, TECHNOLOGIST REVIEW (08/22/2024 3:11 PM EDT) Pathologist [facility] nRBCs 08/22/2024 4:05 PM EDT [facility] 56-02 Blood Venous blood specimen / Unknown Central Line / Unknown 08/22/2024 3:11 PM EDT 08/22/2024 3:45 PM EDT Sunil Bourgeois MD LAB BLOOD ORDERABLES Final Res ult [facility] [address]- [address] [place] [address] * DIFFERENTIAL, AUTOMATED (08/22/2024 3:11 PM EDT) [facility] WBC 5.02 4.00 - 10.80 K/uL 08/22/2024 4:05 PM EDT [facility] 56-02 Neutrophils % 64.7 40.0 - 75.0 % 08/22/2024 4:05 PM EDT [facility] 56-02 Lymphocytes % 20.3 18.0 - 42.0 % 08/22/2024 4:05 PM EDT [facility] 56-02 Monocytes % 9.8 1.0 - 11.0 % 08/22/2024 4:05 PM EDT [facility] 56-02 Eosinophils % 4.6 0.0 - 6.0 % 08/22/2024 4:05 PM EDT [facility] 56-02 Basophils % 0.6 0.0 - 2.0 % 08/22/2024 4:05 PM EDT [facility] 56-02 Absolute Neutrophils 3.25 1.80 - 7.70 K/uL 08/22/2024 4:05 PM EDT [facility] 56-02 Absolute Lymphocytes 1.02 1.00 - 4.80 K/ul 08/22/2024 4:05 PM EDT [facility] 56-02 Absolute Monocytes 0.49 0.00 - 1.10 K/uL 08/22/2024 4:05 PM EDT [facility] 56-02 Absolute Eosinophils 0.23 0.00 - 0.70 K/uL 08/22/2024 4:05 PM EDT [facility] 56-02 Absolute Basophils 0.03 0.00 - 0.20 K/uL 08/22/2024 4:05 PM EDT [facility] 56 Blood Venous blood specimen / Unknown Central Line / Unknown 08/22/2024 3:11 PM EDT 08/22/2024 3:45 PM EDT us Sunil Bourgeois MD LAB BLOOD ORDERABLES Final Res ult [address] [place], [place] [id number] * (ABNORMAL) CBC (08/22/2024 3:11 PM EDT) WBC 5.02 4.00 - 10.80 K/uL 08/22/2024 4:[address] RBC 4.19 3.85 - 5.15 M/uL 08/22/2024 4:[address] HGB 11.8(L) 12.0 - 15.3 g/dL 08/22/2024 4:[address] HCT 36.8 36.0 - 45.2 % 08/22/2024 4:[address] MCV 87.8 81.5 - 97.5 fL 08/22/2024 4:[address] MCH 28.2 27.0 - 34.0 pg 08/22/2024 4:05 PM EDT [facility] 56 MCHC 32.1 32.0 - 36.0 g/dL 08/22/2024 4:05 PM EDT [facility] 56 RDW 14.1 11.5 - 15.5 % 08/22/2024 4:05 PM EDT [facility] 56 PLT 68(L) 140 - 400 K/uL 08/22/2024 4:05 PM EDT [facility] 56 Comment: Consistent with previous results. MPV 10.1 6.6 - 11.1 fL 08/22/2024 4:05 PM EDT [facility] 56 Blood Venous blood specimen / Unknown Central Line / Unknown 08/22/2024 3:11 PM EDT 08/22/2024 3:45 PM EDT Sunil Bourgeois MD LAB BLOOD ORDERABLES Final Res ult [facility] [address] [place] [address] documented in this encounter Visit Diagnoses Diagnosis Iron deficiency anemia due to chronic blood loss- Primary Iron deficiency anemia secondary to blood loss (chronic) Iron deficiency anemia, unspecified iron deficiency anemia type Alkaline phosphatase elevation Other nonspecific abnormal serum enzyme levels Elevated lipase Other nonspecific abnormal serum enzyme levels Cirrhosis of liver without ascites, unspecified hepatic cirrhosis type (HCC) documented in this encounter Administered Medications Inactive Administered Medications - up to 3 most recent administrations Medication Order MAR Action Action Date Dose Rate Site Iron Sucrose (Venofer) 300 mg in NSS 250 mL ivpb 300 mg, IV Piggyback, ONCE, 1 dose, On Thu08/22/24 at 1715, Administer over 90 MinutesIndications:Iron deficiency anemia due to chronic blood loss,Cirrhosis of liver without ascites, unspecified hepatic cirrhosis type (HCC) Start Infusion 08/22/2024 3:38 PM EDT 300 mg 180 mL/hr NSS infusion 500 mL, Intravenous, at 50 mL/hr, CONTINUOUS, Starting on Thu08/22/24 at 1645, Until Thu08/22/24 at 2122Indications:Iron deficiency anemia due to chronic blood loss,Cirrhosis of liver without ascites, unspecified hepatic cirrhosis type (HCC) Start Infusion 08/22/2024 3:36 PM EDT 500 mL 50 mL/hr sodium chloride 0.9 % flush/inj 20 mL 20 mL, IV Push, PRN IV Flush and Lock, Starting on Thu08/22/24 at 1534, Until Thu08/22/24 at 2122, Do not flush if lock, PICC, or central line not in place; IV infusing or unable to flush. For midlines and central lines. For IV Flush and Lock, IVAD is flushed with a total of 20 mL Normal Saline, 10 mL of Normal Saline Flush with 10 mL of Normal Saline acting as IV LOCK.Indications:Iron deficiency anemia due to chronic blood loss,Cirrhosis of liver without ascites, unspecified hepatic cirrhosis type (HCC) Given 08/22/2024 5:13 PM EDT 20 mL documented in this [...] Power of Attor narda? No Care Teams Artificial Flowers Supervisor Relationship Specialty Start Date End Date Scott Weldon MD [address] [place] [address] PCP - General Family Medicine 08/03/18 documented as of this encounter
--- OUTSIDE RECORDS SUMMARY | 2024-09-10 21:14 | External Medical Summary | Summary of Care ---
Author Name Unknown Organization [facility] Address [address] [place] [address] Phone [phone] Care Team Providers Care Swing Saw Operator Name Role Phone Scott Weldon MD Primary Care Provider + Encounter Details Date Type Department Care Team (Late st Contact Info) Description 08/22/2024 Telephone Hematology/Oncology Treatment, [place] [address] [place] [address] Clarence Alvarado MD [address] [place] [address] Allergies Active Allergy Reactions Criticality Noted Date [...] suspected opioid overdose. Seek immediate medical attention. [email or web address] 1 Each 3 11/28/19 23 Active NovoLIN [...] MG/DOSE)) Inject under the skin. 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 180 Tablet 4 08/12/19 25 Active Mupirocin 2 % External Ointment (Bactroban)Indica tions:Cellulitis of abdominal wall Apply topically to affected [...] once a week. 4 Patch 07/27/19 25 025 Disconti nued(Ref ill) documented as of [...] (09/03/2009): Per Obesity Taxonomy Coronary atherosclerosis of [place] coronary artery 09/15/2008 10/03/2008 Malaise and [...] mRNA, LNP-s, No Pre serve, 2-Dose Series (eKonnekt) 11/08/2020,10/11/2020 HEP A - Hepatitis A (Adult > 18 yrs) 04/11/2011, 09/20/2010 Hepatitis B, 20+ yrs 07/05/2015 Pneumococcal Conjugate Vacci ne, 20-valent ([id number]) 03/13/2023 Pneumococcal Polysaccharide PPV23 (Pneumovax) 02/19/2018,03/09/2007 Seasonal [...] of Assessment Author Yes 04/20/2019 10:25 AM Treesa Gonzalez LPN * Do you have difficulty [...] Telephone Encounter - Patrica Shane LPN - 08/24/2024 7:37 AM EDT Scheduled appt today to have rash looked at again, might need oral abx. Alia: 220 pm * Telephone Encounter - Ayah Abrams CRNP - 08/23/2024 3:07 PM EDT Inboxologist Note: Recommend acute appt or urgent care today Inboxologist Covering Provider All replies or additional communication must be routed to the PCP * Telephone Encounter - Patrica Shane LPN - 08/23/2024 2:46 PM EDT Pt returned call. Hari is red, seeping sometimes, cannot afford the ointment, was over $153, and she cannot get that. "Think that I need an oral medication". I suggested that she send us a picture, she can't her applephone and [employer] won't let her download the TheraCoat maranda. I suggested that she will most likelyneed an appt to have someone look at it before an oral abx is prescribed. Could a abx be considered for a skin infection? And be tried? * Telephone Encounter - Patrica Shane LPN - 08/23/2024 2:18 PM EDT Called pt, left detailed message to see how her rash area was on abd and if she had picked up the Mupirocin ointment sent in on 08/21, and if she did, had she started using it on that area? Asked thatshe call us back. * Telephone Encounter - Tamera Henry RN - 08/23/2024 7:22 AM EDT Theres a TE with notes from yesterday morning that the cream was changed to ointment by Dr Caro due to cost. Patient did not mention this at infusion visit, unsure if she meant that both cream and ointment were too expensive or if she did not go to pharmacy yet. FP: please follow up with patient. Thanks! * Telephone Encounter - Amada Foote RN - 08/22/2024 4:22 PM EDT Patient arrived at facility for Venofer infusion which she has been receiving Q4 weekly form 6 doses now. See below from nurse note about open sores on lower abdomen. "While accessing port, patient began to complain of itching and superficial pain on her lower abdomen. She pulled her pants down below naval and has several open areas that were reddened and dry/crusty, some yellowing around the edges. Patient states there had been some pus that had come out of onespot on it, and at that time, it did have an odor. It no longer has an odor or pus now but patient reports it seems like it is getting worse. And it itchy and bothersome to her. She states that her pants get stuck to the sores and the pants end of ripping skin off the sites and making it worse again. She says sometimes the sores have skin that hangs off the tops and it hurts, so she peels it off.RN educated she should not pick skin off [...] cannot afford to get the cream to use." Dr. Alvarado: Patient had seen you 08/12 regarding these sores present on her lower abdomen. She is unable to afford the mupirocin cream to apply to the sites. Is there any other option for topical or oral medications that could help with these sores? Patient feels they have been getting worse and she has not been using anything. If nothing else, would she benefit from any kind of referral to cake press operator helper in healing/any other suggestions? documented in this encounter Plan of Treatment Upcoming Encounters Date Type Department Care Team (Late st Contact Info) Description 08/24/2024 2:20 PM EDT Office Visit Family Practice [facility] [address] [place] [address] Vera Rojo DO [address] [place] [address] 09/08/2024 8:00 AM EDT Imaging [facility] 2nd Floor Cardiology, [place] [address] [place] [phone] 09/13/2024 1:00 PM EDT Office [facility], [place] [facility] [place] [phone] [address] [address] 09/13/2024 2:00 PM EDT Laboratory Laboratory, [address] [facility] [place] [phone] Jayesh [facility] [address] 09/15/2024 9:30 AM EDT Telemedicine Pharmacy, [facility] [address] [place] [address] [facility] [address] [place] [address] 09/15/2024 11:30 AM EDT Office Visit Hematology/Oncology [facility] [phone] Miesha Dawson CRNP [address] [place] [address] [place] [address] 09/29/2024 1:00 PM EDT Office Visit [facility] [address] [place] [address] Jadiel Epstein CRNP [address] [place] [address] 10/18/2024 2:20 PM EDT Telemedicine Hepatology, [place] [address], [place] [phone] Enid Saldana, [address], [place] [phone] 11/10/2024 12:30 PM EDT Telemedicine Psychiatry [facility] [address] [place] [address] Nhi Fritz CRNP [address] [place] [address] 11/18/2024 2:40 PM EDT Office Visit Nephrology, [facility] 200 [facility] [place] [address] Jonathan Mathew MD 200 [place] [address] 12/14/2024 12:20 PM EDT Office Visit [facility] [address] [place] [address] Scott Weldon MD [address] [place] [address] 06/16/2025 11:40 AM EST Office Visit [facility] [address] [place] [address] Scott Weldon MD [address] [place] [address] Scheduled Procedures Name Priority Associated Diagnoses Date/Ti [...] Depression Monitoring 05/17/2025 05/17/2024 GFR 07/11/2025 07/11/2024, 0 12/2024, 05/16/2024, Additional history exists Pap Smear [...] encounter Medical Devices Implanted Type Area Animal Groomer Device Identifier Shelf Expiration Date Model / Serial / Lot Neurostimul Intellis Adaptiv - [id number] - [id number] Implanted:Qty: 1 on 08/22/2022 by Rafia Small MD at OR [facility] N/A: Spine Lumbar [employer] 06/21/2023 [id number] / [id number] / Description:battery Medtronic Lead Kit 60 Cm Implanted:Qty: 1 on 08/22/2022 by Rafia Small MD at OR [facility] N/A: Spine Lumbar 02/01/2026 [id number] / / [id number] Medtronic Lead Kit 60cm Implanted:Qty: 1 on 08/22/2022 by Rafia Small MD at OR [facility] N/A: Spine Lumbar 03/21/2026 [id number] / / [id number] Envelope Tyrx Med Antibacteril - [id number] Implanted:Qty: 1 on 08/22/2022 by Rafia Small MD at OR [facility] N/A: Spine Lumbar [employer] 03/10/2023 [id number] / / [id number] Hemostatic Clip Res 235cm - [id number] Implanted:Qty: 4 on 10/05/2023 by Aj Pruett, DO at ENDOSCOPY [facility] : ENDOSCOPY 02/03/2026 [id number] / / Hemostatic Clip Res 235cm - [id number] Implanted:Qty: 1 on 10/05/2023 by Aj Pruett, DO at [facility] : ENDOSCOPY 02/02/2026 [id number] / / documented as of this encounter [...] Power of Attor narda? No Care Teams Swing Saw Operator Relationship Specialty Start Date End Date Scott Weldon MD 132 [facility] [place] [address] PCP - General Family Medicine 08/03/18 documented as of this encounter
--- OUTSIDE RECORDS SUMMARY | 2024-09-10 21:14 | External Medical Summary ---
Author Name Unknown Address Unknown Organization K01:[facility] - [address] [facility] [address] Laboratory Report Ordering Provider Test Date Status LUIS ANTONIO LEIVA 08/22/2024 15:11:26 Final Observation Date Value Abnormality Reference (Units ) Status Ferritin 08/22/2024 15:11:26 315 Above high normal 13 -150 (ng/mL) Final Postmenopausal women have hi gher ferritin levels than pre-menopausal women. The above reference interval is based on pre-menopausal women. Performing Location [facility] [address] [facility] [address]
--- OUTSIDE RECORDS SUMMARY | 2024-09-10 21:15 | External Medical Summary | Summary of Care ---
Author Name Unknown Organization [facility] Address [address] [place] [place] [address] Phone [phone] Care Team Providers Care Missionary Coordinator Name Role Phone Scott Weldon MD Primary Care Provider + Reason for Visit * Reason Onset Date Comments Medication Discussion 08/12/2024 Ozempic re start? Encounter Details Date Type Department Care Team (Late st Contact Info) Description 08/12/2024 Telephone Pharmacy, Jayesh Regan [address] [phone] Danielle Anderson, [facility] 200 [facility] [place] [address] Medication Discussion (Ozempic restart?) Allergies Active Allergy Reactions Criticality Noted Date Comments Naproxen Sodium Bleeding High 11/29/2013 Pollen 12/03/2022 Seasonal Food (See Comments) Anaphylaxis High 04/20/2019 Hot peppers (oils) Kiwi Extract Anaphylaxis High 04/20/2019 documented as of this encounter (statuses as of 08/16/2024) Medications insulin glargine (LANTUS SOLOSTAR) 100 UNIT/ML [...] 5 02/18/20 17 Active Insulin Infusion Pump (MINIMGenizon Bio[employer]iences 630G INSULIN PUMP) KITIndications:Typ e 2 diabetes [...] suspected opioid overdose. Seek immediate medical attention. [email or web address] 1 Each 3 11/28/19 23 Active NovoLIN [...] MG/DOSE)) Inject under the skin. Obtaining from SET Active Atorvastatin Calcium 40 MG Oral Tablet [...] as of this encounter (statuses as of 08/16/2024) Active Problems Problem Noted Date Diagnosed Date [...] as of this encounter (statuses as of 08/16/2024) Resolved Problems Problem Noted Date Diagnosed Date [...] (09/03/2009): Per Obesity Taxonomy Coronary atherosclerosis of lac [...] as of this encounter (statuses as of 08/16/2024) Immunizations Name Administration Dates Next Due COVID-19 mRNA, LNP-s, No Pre serve, 2-Dose Series (Leikr) 11/08/2020,10/11/2020 HEP A - Hepatitis A (Adult > 18 yrs) 04/11/2011, 09/20/2010 Hepatitis B, 20+ yrs 07/05/2015 Pneumococcal Conjugate Vacci ne, 20-valent ([id number]) 03/13/2023 Pneumococcal Polysaccharide PPV23 (Pneumovax) 02/19/2018,03/09/2007 Seasonal [...] Notes * Telephone Encounter - Danielle Anderson, [facility] - 08/12/2024 7:34 PM EST Patient is [...] 3:00 PM EDT Hem/Onc Treatment Hematology/Oncology Treatment, [place] [address] [facility] [phone] 09/08/2024 8:00 AM EDT Imaging [facility] 2nd Floor Cardiology, [place] 132 [facility] [place] [phone] 09/13/2024 1:00 PM EDT Office Visit Pharmacy, [facility] [phone] [address] [address] 09/14/2024 2:00 PM EDT Office Visit Hematology/Oncology [address] [place] [phone] Sunil Bourgeois MD 200 [facility] [place] [address] 09/15/2024 9:30 AM EDT Telemedicine Pharmacy, [facility] 132 [facility] [place] [address] [address] [address] 09/29/2024 1:00 PM EDT Office Visit Family Practice [facility] [address] [place] [address] Jadiel Epstein CRNP [address] [address] 10/18/2024 2:20 PM EDT Telemedicine Hepatology, [place] [address] [place], [place] [phone] Enid Saldana, [address] [place], [place] [phone] 11/10/2024 12:30 PM EDT Telemedicine Psychiatry [facility] [address] [place] [address] Nhi Fritz CRNP [address] [place] [address] 12/14/2024 12:20 PM EDT [facility] [place] [address] Scott Weldon MD [address] [facility] [address] 03/13/2025 2:00 PM EDT Office Visit [facility] [address] [place] [address] Jonathan Mathew MD [address] [place] [address] 06/16/2025 11:40 AM EST Office Visit [facility] [address] [facility] [place] [address] Scott Weldon MD 132 [facility] [place] [address] Scheduled Procedures Name Priority Associated Diagnoses Date/Ti [...] this encounter Medical Devices Implanted Type Area Dieing Out Machine Operator Device Identifier Shelf Expiration Date Model / Serial / Lot Neurostimul Intellis Adaptiv - [id number] - [id number] Implanted:Qty: 1 on 08/22/2022 by Rafia Small MD at OR [facility] N/A: Spine Lumbar [employer] 06/21/2023 [id number] / [id number] / Description:battery Medtronic Lead Kit 60 Cm Implanted:Qty: 1 on 08/22/2022 by Rafia Small MD at OR [facility] N/A: Spine Lumbar 02/01/2026 [id number] / / [id number] Medtronic Lead Kit 60cm Implanted:Qty: 1 on 08/22/2022 by Rafia Small MD at OR [facility] N/A: Spine Lumbar 03/21/2026 [id number] / / [id number] Envelope Tyrx Med Antibacteril - [id number] Implanted:Qty: 1 on 08/22/2022 by Rafia Small MD at OR [facility] N/A: Spine Lumbar [employer] 03/10/2023 [id number] / / [id number] Hemostatic Clip Res 235cm - [id number] Implanted:Qty: 4 on 10/05/2023 by Aj Pruett, DO at END[facility]COPY [facility] : ENDOSCOPY 02/03/2026 [id number] / / Hemostatic Clip Res 235cm - [id number] Implanted:Qty: 1 on 10/05/2023 by Aj Pruett, DO at [facility] : ENDOSCOPY 02/02/2026 [id number] / / documented as of this encounter [...] Power of Attor narda? No Care Teams Missionary Coordinator Relationship Specialty Start Date End Date Scott Weldon MD [address] [address] PCP - General Family Medicine 08/03/18 documented as of this encounter
--- OUTSIDE RECORDS SUMMARY | 2024-09-10 21:15 | External Medical Summary | Summary of Care ---
Author Name Unknown Organization [facility] Address [address] [place] [place] [place] [address] Phone [phone] Care Team Providers Care Account Support Rep Name Role Phone Scott Weldon MD Primary Care Provider + Reason for Visit * Reason Comments IV Therapy Venofer Procedure Labs from [facility], [facility] Encounter Details Date Type Department Care Team (Latest Contact Info) Description 07/11/2024 10:00 AM EST Hem/Onc Treatment Hematology/Oncology Treatment, [place] [address] [place] [address] Iron deficiency anemia due to chronic blood loss*; Iron deficiency anemia, unspecified iron deficiency anemia type; Cirrhosis of liver with ascites, unspecified hepatic cirrhosis type (HCC); Cirrhosis of liver without ascites, unspecified hepatic cirrhosis type (HCC); Encounter for care related to vascular access port Allergies Active Allergy Reactions Criticality Noted Date Comments Naproxen Sodium Bleeding High 11/29/2013 Pollen 12/03/2022 Seasonal Food (See Comments) Anaphylaxis High 04/20/2019 Hot peppers (oils) Kiwi Extract Anaphylaxis High 04/20/2019 documented as of this encounter (statuses as of 08/17/2024) Medications insulin glargine (LANTUS SOLOSTAR) 100 UNIT/ML [...] 5 02/18/20 17 Active Insulin Infusion Pump (MINIMZero Emission Energy Plants (ZEEP) 630G INSULIN PUMP) KITIndications:Ty pe 2 diabetes [...] suspected opioid overdose. Seek immediate medical attention. [email or web address] 1 Each 3 11/28/19 23 Active NovoLIN [...] MG/DOSE)) Inject under the skin. Obtaining from [employer] ([employer]) Active Atorvastatin Calcium 40 MG Oral Tablet [...] Patch 06/11/19 25 025 Disconti nued(Ref ill) documented as of this encounter (statuses as of 08/17/2024) Active Problems Problem Noted Date Diagnosed Date Other pancytopenia 06/30/2024 Hemiplegia and hemiparesis f [...] mild Encounter for venous access device care 07/17/20 20 Severe obesity (BMI 35.0-39.9) with comorbidity [...] as of this encounter (statuses as of 08/17/2024) Resolved Problems Problem Noted Date Diagnosed Date [...] (09/03/2009): Per Obesity Taxonomy Coronary atherosclerosis of [place] [...] as of this encounter (statuses as of 08/17/2024) Immunizations Name Administration Dates Next Due COVID-19 mRNA, LNP-s, No Pre serve, 2-Dose Series (PlayMobs) 11/08/2020,10/11/2020 HEP A - Hepatitis A (Adult > 18 yrs) 04/11/2011, 09/20/2010 Hepatitis B, 20+ yrs 07/05/2015 Pneumococcal Conjugate Vacci ne, 20-valent ([id number]) 03/13/2023 Pneumococcal Polysaccharide PPV23 (Pneumovax) 02/19/2018,03/09/2007 Seasonal [...] No 05/17/2024 Does the household have a [facility] facility[facility] source of income? (Household - for ages [...] Sign Reading Time Taken Comments Blood Pressure 126/71 07/11/2024 10:14 AM EST Pulse 80 07/11/2024 10:14 AM EST Temperature 36.5 °C (97.7 °F) 07/11/2024 10:[address] Respiratory Rate 18 07/11/2024 10:14 AM EST Oxygen Saturation 95% 07/11/2024 10:14 AM EST Inhaled Oxygen Concentration - - [...] Teresa Moore LPN * Do you have serious difficulty [...] Entry Date Author No 04/20/2019 10:25 AM eTresa Gonzalez LPN documented in this encounter Nursing Notes * Amada Foote RN - 07/11/2024 2:03 PM EST Goals: Patient will remain free from injury. Possible barriers to meeting goals: ambulating with IV pole, nausea, use of cane Stability of the patient: Moderately stable - low risk of patient condition declining or worsening Summary regarding today's goals: Met: pt remained free of harm today Patient tolerated treatment well without any acute issues or problems. Patient left facility in stable condition and denied any further needs. * Amada Foote RN - 07/11/2024 12:40 PM EST TPA removed at 11:35 am - took about 50 minutes for effectiveness, appropriate waste drawn for labs. Licensed Nursing Assistant came to drawn peripheral PT/INR. Venofer started, mother in law here with patient now. Patient states she forgot to take her Zofran today and is having some nausea - ordered by NOEL Vicente. Patient is comfortable and denies any further needs. * Amada Foote RN - 07/11/2024 10:59 AM EST Chair 8. Port accessed with 1 inch needle. Port typically is tilted but port is flushing freely without resistance or swelling around port site. Patient denies any pain or discomfort with flushing and states she is slightly tasting the saline flushes. No blood returned and RN was to draw labs from port today as well. Second RN came to assess port site to ensure proper placement as well, seemed to be correct. Patient attempted to be repositioned to get blood return from port but no blood return still. Patient agreeable to TPA today before giving Venofer. TPA instilled at 1045. Patient is comfortable and denies further needs at this time. Provided with blanket and call scott within reach. Patient instructed on use of heat and [...] 3:00 PM EDT Hem/Onc Treatment Hematology/Oncology Treatment, [place] [facility] [phone] 09/08/2024 8:00 AM EDT Imaging [facility] 2nd Floor Cardiology, [place] 132 [facility] [place] [phone] 09/13/2024 1:00 PM EDT [facility] [place] [facility] [phone] [place] [address] 09/14/2024 2:00 PM EDT Office Visit Hematology/Oncology [facility] 200 [facility] [place] [phone] Sunil Bourgeois MD 200 [facility] [address] 09/15/2024 9:30 AM EDT Telemedicine Pharmacy, [facility] 132 [facility] [place] [address] [facility] 132 [facility] [place] [address] 09/29/2024 1:00 PM EDT Office Visit Family Practice [facility] 132 [facility] [place] [address] Jadiel Epstein CRNP 132 [facility] [place] [address] 10/18/2024 2:20 PM EDT Telemedicine Hepatology, [address] [place] [address] Enid Saldana DO [place] [address] [place], [place] [phone] 11/10/2024 12:30 PM EDT Telemedicine Psychiatry [facility] [address] [place] [address] Nhi Fritz CRNP [address] [place] [address] 11/18/2024 2:40 PM EDT Office Visit Nephrology, [place] 200 [facility] [place] [phone] Jonathan Mathew MD 200 [facility] [place] [address] 12/14/2024 12:20 PM EDT Office Visit [facility] [address] [place] [place] [address] Scott Weldon MD [address] [place] [address] 06/16/2025 11:40 AM EST Office Visit [facility] [place] [address] Scott Weldon MD 132 [place] [address] Scheduled Procedures Name Priority Associated Diagnoses Date/Ti [...] this encounter Medical Devices Implanted Type Area Ad Operations Intern Device Identifier Shelf Expiration Date Model / Serial / Lot Neurostimul Intellis Adaptiv - [id number] - [id number] Implanted:Qty: 1 on 08/22/2022 by Rafia Small MD at OR [facility] N/A: Spine Lumbar [employer] 06/21/2023 [id number] / [id number] / Description:battery Medtronic Lead Kit 60 Cm Implanted:Qty: 1 on 08/22/2022 by Rafia Small MD at OR [facility] N/A: Spine Lumbar 02/01/2026 [id number] / / [id number] Medtronic Lead Kit 60cm Implanted:Qty: 1 on 08/22/2022 by Rafia Small MD at OR [facility] N/A: Spine Lumbar 03/21/2026 [id number] / / [id number] Envelope Tyrx Med Antibacteril - [id number] Implanted:Qty: 1 on 08/22/2022 by Rafia Small MD at OR [facility] N/A: Spine Lumbar [employer] 03/10/2023 [id number] / / [id number] Hemostatic Clip Res 235cm - [id number] Implanted:Qty: 4 on 10/05/2023 by Aj Pruett DO at [facility] : ENDOSCOPY 02/03/2026 [id number] / / Hemostatic Clip Res 235cm - [id number] Implanted:Qty: 1 on 10/05/2023 by Aj rPuett DO at [facility] : ENDOSCOPY 02/02/2026 [id number] / / documented as of this encounter Procedures Procedure Name Priority Date/Time Associated Diagnosis Comments PT INR Routine 07/11/2024 10:12 AM EST Cirrhosis of liver with ascites, unspecified hepatic cirrhosis type (HCC) DIFFERENTIAL, AUTOMATED STAT 07/11/2024 10:00 AM EST Iron deficiency anemia, unspecified iron deficiency anemia type IRON SCREEN, INCLUDING TIBC STAT 07/11/2024 10:00 AM EST Iron deficiency anemia, unspecified iron deficiency anemia type CBC STAT 07/11/2024 10:00 AM EST Iron deficiency anemia, unspecified iron deficiency anemia type CBC STAT 07/11/2024 10:00 AM EST Iron deficiency anemia, unspecified iron deficiency anemia type DIFFERENTIAL, TECHNOLOGIST REVIEW Routine 07/11/2024 10:00 AM EST Iron deficiency anemia, unspecified iron deficiency anemia type FERRITIN STAT 07/11/2024 10:00 AM EST Iron deficiency anemia, unspecified iron deficiency anemia type documented in this encounter Results * PT INR (07/11/2024 10:12 AM EST) [facility] Prothrombin Time 14.7 11.6 - 15.2 seconds 07/11/2024 12:15 PM EST [facility] 56-02 INR 1.1 0.8 - 1.2 07/11/2024 12:15 PM EST [facility] 56-02 Blood Venous blood specimen / Unknown Central Line / Unknown 07/11/2024 10:12 AM EST 07/11/2024 11:48 AM EST Narrative [facility] 56-02 - 07/11/2024 12:15 PM EST Warfarin Therapy INR: 2.0-3.0 conventional anticoagulation INR: 2.5-3.5 high intensity anticoagulation us Adam COHEN LAB BLOOD ORDERABLES Final Result [facility] [address] [place] [address] * DIFFERENTIAL, TECHNOLOGIST REVIEW (07/11/2024 10:00 AM EST) Pathologist [facility] nRBCs 07/11/2024 12:06 PM [facility] 56-02 Blood Venous blood specimen / Unknown Central Line / Unknown 07/11/2024 10:00 AM EST 07/11/2024 11:48 AM EST us Sunil Bourgeois MD LAB BLOOD ORDERABLES Final Res ult [facility] [address]- [address] [place], [place] [phone] * (ABNORMAL) DIFFERENTIAL, AUTOMATED (07/11/2024 10:00 AM EST) Pathologist [facility] WBC 4.47 4.00 - 10.80 K/uL 07/11/2024 12:06 PM [facility] 56-02 Neutrophils % 68.8 40.0 - 75.0 % 07/11/2024 12:06 PM [facility] 56-02 Lymphocytes % 18.3 18.0 - 42.0 % 07/11/2024 12:06 PM [facility] 56-02 Monocytes % 7.4 1.0 - 11.0 % 07/11/2024 12:06 PM [facility] 56-02 Eosinophils % 5.1 0.0 - 6.0 % 07/11/2024 12:06 PM [facility] 56-02 Basophils % 0.4 0.0 - 2.0 % 07/11/2024 12:06 PM [facility] 56-02 Absolute Neutrophils 3.07 1.80 - 7.70 K/uL 07/11/2024 12:06 PM [facility] 56-02 Absolute Lymphocytes 0.82(L) 1.00 - 4.80 K/ul 07/11/2024 12:06 PM [facility] 56-02 Absolute Monocytes 0.33 0.00 - 1.10 K/uL 07/11/2024 12:06 PM [facility] 56-02 Absolute Eosinophils 0.23 0.00 - 0.70 K/uL 07/11/2024 12:06 PM [facility] 56-02 Absolute Basophils 0.02 0.00 - 0.20 K/uL 07/11/2024 12:06 PM [facility] 56-02 Blood Venous blood specimen / Unknown Central Line / Unknown 07/11/2024 10:00 AM EST 07/11/2024 11:48 AM EST Sunil Bourgeois MD LAB BLOOD ORDERABLES Final Res ult [facility] [address]- [address] [place], [place] [phone] * (ABNORMAL) CBC (07/11/2024 10:00 AM EST) WBC 4.47 4.00 - 10.80 K/uL 07/11/2024 12:06 PM [facility] 56 RBC 4.05 3.85 - 5.15 M/uL 07/11/2024 12:06 PM [facility] 56 HGB 11.4(L) 12.0 - 15.3 g/dL 07/11/2024 12:06 PM [facility] 56 HCT 35.2(L) 36.0 - 45.2 % 07/11/2024 12:06 PM [facility] 56 MCV 86.9 81.5 - 97.5 fL 07/11/2024 12:06 PM [facility] 56 MCH 28.1 27.0 - 34.0 pg 07/11/2024 12:06 PM [facility] 56-02 MCHC 32.4 32.0 - 36.0 g/dL 07/11/2024 12:06 PM [facility] 56-02 RDW 15.5 11.5 - 15.5 % 07/11/2024 12:06 PM [facility] 56-02 PLT 48(L) 140 - 400 K/uL 07/11/2024 12:06 PM [facility] 56-02 MPV 9.9 6.6 - 11.1 fL 07/11/2024 12:06 PM [facility] 56-02 Blood Venous blood specimen / Unknown Central Line / Unknown 07/11/2024 10:00 AM EST 07/11/2024 11:48 AM EST us Sunil Bourgeois MD LAB BLOOD ORDERABLES Final Res ult Performing Organization Address City/[facility]/ZIP Co de Phone Number [facility]AT[facility] [address] [place] [address] * IRON SCREEN, INCLUDING TIBC (07/11/2024 10:00 AM EST) Iron 77 33 - 151 ug/dL 07/12/2024 12:46 AM EST [facility] Iron Binding Capacity 258 250 - 425 ug/dL 07/12/2024 12:46 AM EST [facility] Transferrin Saturation Percent 30 15 - 55 % 07/12/2024 12:46 AM EST [facility] Blood Venous blood specimen / Unknown Central Line / Unknown 07/11/2024 10:00 AM EST 07/11/2024 11:48 AM EST Sunil Bourgeois MD LAB BLOOD ORDERABLES Final Res ult Performing Organization Address [facility] de Phone Number LABORATORY [facility] [address] [place] [address] * (ABNORMAL) FERRITIN (07/11/2024 10:00 AM EST) Ferritin 306(H) 13 - 150 ng/mL 07/12/2024 1:19 AM EST LABORATORY [facility] Comment:Postmenopausal women have higher ferritin levels than pre-menopausal women. The above reference interval is based on pre-menopausal women. Blood Venous blood specimen / Unknown Central Line / Unknown 07/11/2024 10:00 AM EST 07/11/2024 11:48 AM EST Sunil Bourgeois MD LAB BLOOD ORDERABLES Final Res ult Performing Organization Address [facility] Co de Phone Number LABORATORY [facility] [address] [place] [address] documented in this encounter Visit Diagnoses Diagnosis Iron deficiency anemia due to chronic blood loss- Primary Iron deficiency anemia secondary to blood loss (chronic) Iron deficiency anemia, unspecified iron deficiency anemia type Cirrhosis of liver with ascites, unspecified hepatic cirrhosis type (HCC) Cirrhosis of liver without ascites, unspecified hepatic cirrhosis type (HCC) Encounter for care related to vascular access port Fitting and adjustment of vascular catheter documented in this encounter Administered Medications Inactive Administered Medications - up to 3 most recent administrations Medication Order MAR Action Action Date Dose Rate Site Alteplase (Cathflo Activase) inj 2 mg 2 mg, IV Push, ONCE, On Thu07/11/24 at 1130, For 1 dose, Reconstitute Alteplase (CathFlo Activase) 2mg in 2.2ml sterile water. Do not use Bacteriostatic Water for injection. Instill the 2.2 mL of Sterile Water for Injection, FPC, into the vial, directing the diluent stream into the powder. Slight foaming is not unusual; let the vial stand undisturbed to allow large bubbles to dissipate. Mix by gently whirling until the contents are completely dissolved, complete dissolution should occur within 3 minutes. DO NOT SHAKE! The reconstituted preparation resulting in a colorless to pale yellow transparent solution containing 1m/1mL Cathflow Activase at a pH of approximately 7.3. The solution may be used for intracatheter instillation within 8 hours following reconstitution when stored at 2-30 degrees C.Indications:Iron deficiency anemia, unspecified iron deficiency anemia type,Encounter for care related to vascular access port Given 07/11/2024 10:45 AM EST 2 mg Iron Sucrose (Venofer) 300 mg in NSS 250 mL ivpb 300 mg, IV Piggyback, ONCE, 1 dose, On Thu07/11/24 at 1200, Administer over 90 MinutesIndications:Iron deficiency anemia due to chronic blood loss,Cirrhosis of liver without ascites, unspecified hepatic cirrhosis type (HCC) Start Infusion 07/11/2024 11:38 AM EST 300 mg 180 mL/hr NSS infusion 500 mL, Intravenous, at 50 mL/hr, CONTINUOUS, Starting on Thu07/11/24 at 1130, Until Thu07/11/24 at 1817Indications:Iron deficiency anemia due to chronic blood loss,Cirrhosis of liver without ascites, unspecified hepatic cirrhosis type (HCC) Start Infusion 07/11/2024 11:37 AM EST 500 mL 50 mL/hr ondansetron (Zofran) tab 8 mg 8 mg, Oral, ONCE, On Thu07/11/24 at 1300, For 1 doseIndications:Iron deficiency anemia due to chronic blood loss,Cirrhosis of liver without ascites, unspecified hepatic cirrhosis type (HCC) Given 07/11/2024 12:33 PM EST 8 mg sodium chloride 0.9 % flush/inj 20 mL 20 mL, IV Push, PRN IV Flush and Lock, Starting on Thu07/11/24 at 1055, Until Thu07/11/24 at 1817, Do not flush if lock, PICC, or central line not in place; IV infusing or unable to flush. For midlines and central lines. For IV Flush and Lock, IVAD is flushed with a total of 20 mL Normal Saline, 10 mL of Normal Saline Flush with 10 mL of Normal Saline acting as IV LOCK.Indications:Iron deficiency anemia, unspecified iron deficiency anemia type,Encounter for care related to vascular access port Given 07/11/2024 1:20 PM EST 20 mL documented in this encounter Advance [...] Power of Attor narda? No Care Teams Account Support Rep Relationship Specialty Start Date End Date Scott Weldon MD [address] [place] [address] PCP - General Family Medicine 08/03/18 documented as of this encounter
--- OUTSIDE RECORDS SUMMARY | 2024-09-10 21:15 | External Medical Summary | Summary of Care ---
Author Name Unknown Organization [facility] Address [address] [place] [facility] [place] [address] Phone [phone] Care Team Providers Care Hydrographer Name Role Phone Scott Weldon MD Primary Care Provider + Reason for Visit * Reason Onset Date Comments Medication Discussion 08/12/2024 Ozempic re start? Encounter Details Date Type Department Care Team (Late st Contact Info) Description 08/12/2024 Telephone Pharmacy, Jayesh Regan [address] [phone] Danielle Anderson, [facility] 200 [facility] [place] [address] Medication Discussion (Ozempic restart?) Allergies Active Allergy [...] 5 02/18/20 17 Active Insulin Infusion Pump (MINIMFlirq 630G INSULIN PUMP) KITIndications:Typ e 2 diabetes [...] suspected opioid overdose. Seek immediate medical attention. [email or web address] 1 Each 3 11/28/19 23 Active NovoLIN [...] MG/DOSE)) Inject under the skin. Obtaining from [employer] Active Atorvastatin Calcium 40 MG Oral Tablet [...] (09/03/2009): Per Obesity Taxonomy Coronary atherosclerosis of [place] [...] mRNA, LNP-s, No Pre serve, 2-Dose Series ([employer] 11/08/2020,10/11/2020 HEP A - Hepatitis A (Adult > 18 yrs) 04/11/2011, 09/20/2010 Hepatitis B, 20+ yrs 07/05/2015 Pneumococcal Conjugate Vacci ne, 20-valent ([id number]) 03/13/2023 Pneumococcal Polysaccharide PPV23 (Pneumovax) 02/19/2018,03/09/2007 Seasonal [...] Notes * Telephone Encounter - Danielle Anderson, [facility] - 08/16/2024 3:07 PM EDT Noted by MTM. I have been making adjustments to her pump to help combat the higher blood sugars. Will await decision about ozempic. Thank you! Danielle Anderson, PharmD, BCACP Clinical Pharmacist Medication Therapy Disease Management 08/16/2024, 3:07 PM * Telephone Encounter - Kathie Soares LPN - 08/16/2024 1:01 PM EDT Sent MDCapsule message to patient regarding message from provider. [...] 3:00 PM EDT Hem/Onc Treatment Hematology/[facility], [place] [facility] [address] 09/08/2024 8:00 AM EDT Imaging [facility] 2nd Floor Cardiology, [place] [address] [place] [phone] 09/13/2024 1:00 PM EDT Office Visit Pharmacy, [facility] [address] [address] 09/14/2024 2:00 PM EDT Office Visit Hematology/Oncology [address] [place] [phone] Sunil Bourgeois MD [address] [facility] [address] 09/15/2024 9:30 AM EDT Telemedicine Pharmacy, [facility] [address] [place] [address] [place] [address] 09/29/2024 1:00 PM EDT Office Visit Family Practice [facility] [address] [place] [address] Jadiel Epstein CRNP [address] [place] [address] 10/18/2024 2:20 PM EDT Telemedicine Hepatology, [place] [address] [place] [address] [place] Olya Becerril, DO [address] [facility] [place], [place] [phone] 11/10/2024 12:30 PM EDT Telemedicine Psychiatry [facility] [address] [place] [address] Nhi Fritz CRNP [address] [place] [address] 11/18/2024 2:40 PM EDT Office Visit Nephrology, [facility] 200 [place] [phone] Jonathan Mathew MD 200 [place] [address] 12/14/2024 12:20 PM EDT Office Visit [facility] [address] [place] [address] Scott Weldon MD 132 [facility] [place] [address] 06/16/2025 11:40 AM EST Office Visit [facility] [address] [place] [address] Scott Weldon MD 132 [facility] [place] [address] Scheduled Orders Name Type Priority Associated Diagnoses [...] this encounter Medical Devices Implanted Type Area Judo Teacher Device Identifier Shelf Expiration Date Model / Serial / Lot Neurostimul Intellis Adaptiv - [id number] - [id number] Implanted:Qty: 1 on 08/22/2022 by Rafia Small MD at OR [facility] N/A: Spine Lumbar [employer] 06/21/2023 [id number] / [id number] / Description:battery Medtronic Lead Kit 60 Cm Implanted:Qty: 1 on 08/22/2022 by Rafia Small MD at OR [facility] N/A: Spine Lumbar 02/01/2026 [id number] / / [id number] Medtronic Lead Kit 60cm Implanted:Qty: 1 on 08/22/2022 by Rafia Small MD at OR [facility] N/A: Spine Lumbar 03/21/2026 [id number] / / [id number] Envelope Tyrx Med Antibacteril - [id number] Implanted:Qty: 1 on 08/22/2022 by Rafia Small MD at OR [facility] N/A: Spine Lumbar [employer] 03/10/2023 [id number] / / [id number] Hemostatic Clip Res 235cm - [id number] Implanted:Qty: 4 on 10/05/2023 by Aj Pruett DO at ENDOSCOPY [facility] : ENDOSCOPY 02/03/2026 [id number] / / Hemostatic Clip Res 235cm - [id number] Implanted:Qty: 1 on 10/05/2023 by Aj Pruett DO at ENDOSCOPY [facility] : ENDOSCOPY 02/02/2026 [id number] / / documented as of this encounter [...] Power of Attor narda? No Care Teams Hydrographer Relationship Specialty Start Date End Date Scott Weldon MD [address] [address] PCP - General Family Medicine 08/03/18 documented as of this encounter
--- OUTSIDE RECORDS SUMMARY | 2024-09-10 21:15 | External Medical Summary | Summary of Care ---
Author Name Unknown Organization [facility] Address [address] [place] [facility] [place] [address] Phone [phone] Care Team Providers Care Associate Counsel Name Role Phone Scott Weldon MD Primary Care Provider + Reason for Visit * Reason Onset Date Comments Medication Discussion 08/12/2024 Ozempic re start? Encounter Details Date Type Department Care Team (Late st Contact Info) Description 08/12/2024 Telephone Pharmacy, Jayesh Regan [address] [phone] Danielle Anderson, [facility] 200 [facility] [place] [address] Medication Discussion (Ozempic restart?) Allergies Active Allergy [...] 5 02/18/20 17 Active Insulin Infusion Pump (MINIMLanier Parking [employer] 630G INSULIN PUMP) KITIndications:Typ e 2 diabetes [...] suspected opioid overdose. Seek immediate medical attention. [email or web address] 1 Each 3 11/28/19 23 Active NovoLIN [...] MG/DOSE)) Inject under the skin. Obtaining from [employer] Active Atorvastatin Calcium 40 MG Oral Tablet [...] Obesity Taxonomy Coronary atherosclerosis of [place] coronary artery 09/15/2008 10/03/2008 Malaise and fatigue [...] mRNA, LNP-s, No Pre serve, 2-Dose Series ([employer] 11/08/2020,10/11/2020 HEP A - Hepatitis A (Adult > 18 yrs) 04/11/2011, 09/20/2010 Hepatitis B, 20+ yrs 07/05/2015 Pneumococcal Conjugate Vacci ne, 20-valent ([id number]) 03/13/2023 Pneumococcal Polysaccharide PPV23 (Pneumovax) 02/19/2018,03/09/2007 Seasonal [...] Notes * Telephone Encounter - Danielle Anderson, [facility] - 08/16/2024 3:07 PM EDT Noted by MTM. I have been making adjustments to her pump to help combat the higher blood sugars. Will await decision about ozempic. Thank you! Danielle Anderson, PharmD, BCACP Clinical Pharmacist Medication Therapy Disease Management 08/16/2024, 3:07 PM * Telephone Encounter - Kathie Soares LPN - 08/16/2024 1:01 PM EDT Sent Newtron message to patient regarding message from provider. [...] 3:00 PM EDT Hem/Onc Treatment Hematology/Oncology Treatment, [place] [facility] [address] 09/08/2024 8:00 AM EDT Imaging [facility] 2nd Floor Cardiology, [place] [address] [place] [phone] 09/13/2024 1:00 PM EDT Office Visit Pharmacy, [facility] [address] [address] 09/14/2024 2:00 PM EDT Office Visit Hematology/Oncology [address] [place] [address] Sunil Bourgeois MD 200 [facility] [address] 09/15/2024 9:30 AM EDT Telemedicine Pharmacy, [facility] [address] [place] [address] [place] [address] 09/29/2024 1:00 PM EDT Office Visit Family Practice [facility] [address] [place] [address] Jadiel Epstein CRNP [address] [place] [address] 10/18/2024 2:20 PM EDT Telemedicine Hepatology, [place] [address] [place] [address] Les En[place] Olya Becerril, DO [address] [facility], [place] [address] 11/10/2024 12:30 PM EDT Telemedicine Psychiatry [facility] 68 [place] [address] Nhi Fritz CRNP [address] [place] [address] 11/18/2024 2:40 PM EDT Office Visit Nephrology, [facility] 200 [place] [address] Jonathan Mathew MD 200 [place] [address] 12/14/2024 12:20 PM EDT Office Visit [facility] [address] [place] [address] Scott Weldon MD 132 [facility] [place] [address] 06/16/2025 11:40 AM EST Office Visit [facility] [address] [place] [address] Scott Weldon MD 132 [facility] [place] [address] Scheduled Orders Name Type Priority Associated Diagnoses [...] encounter Medical Devices Implanted Type Area Telephone Supervisor Device Identifier Shelf Expiration Date Model / Serial / Lot Neurostimul Intellis Adaptiv - [id number] - [id number] Implanted:Qty: 1 on 08/22/2022 by Rafia Small MD at OR [facility] N/A: Spine Lumbar [employer] 06/21/2023 [id number] / [id number] / Description:battery Medtronic Lead Kit 60 Cm Implanted:Qty: 1 on 08/22/2022 by Rafia Small MD at OR [facility] N/A: Spine Lumbar 02/01/2026 [id number] / / [id number] Medtronic Lead Kit 60cm Implanted:Qty: 1 on 08/22/2022 by Rafia Small MD at OR [facility] N/A: Spine Lumbar 03/21/2026 [id number] / / [id number] Envelope Tyrx Med Antibacteril - [id number] Implanted:Qty: 1 on 08/22/2022 by Rafia Small MD at OR [facility] N/A: Spine Lumbar [employer] 03/10/2023 [id number] / / [id number] Hemostatic Clip Res 235cm - [id number] Implanted:Qty: 4 on 10/05/2023 by Aj Pruett DO at ENDOSCOPY [facility] : ENDOSCOPY 02/03/2026 [id number] / / Hemostatic Clip Res 235cm - [id number] Implanted:Qty: 1 on 10/05/2023 by Aj Pruett DO at ENDOSCOPY [facility] : ENDOSCOPY 02/02/2026 [id number] / / documented as of this encounter [...] Power of Attor narda? No Care Teams Associate Counsel Relationship Specialty Start Date End Date Scott Weldon MD [address] [address] PCP - General Family Medicine 08/03/18 documented as of this encounter
--- OUTSIDE RECORDS SUMMARY | 2024-09-10 21:15 | External Medical Summary | Summary of Care ---
Author Name Unknown Organization [facility] Address [address] [facility] [address] Phone [phone] Care Team Providers Care Clinical Project Manager Name Role Phone Scott Weldon MD Primary Care Provider + Reason for Visit * Reason Comments IV Therapy Venofer Procedure Labs from [facility], [facility] Encounter Details Date Type Department Care Team (Latest Contact Info) Description 07/11/2024 10:00 AM EST Hem/Onc Treatment Hematology/Oncology Treatment, [place] [address] [place] [address] Iron deficiency anemia due to [...] 5 02/18/20 17 Active Insulin Infusion Pump (MINIMLingdong.com 630G INSULIN PUMP) KITIndications:Ty pe 2 diabetes [...] suspected opioid overdose. Seek immediate medical attention. [email or web address] 1 Each 3 11/28/19 23 Active NovoLIN [...] MG/DOSE)) Inject under the skin. Obtaining from [employer] Active Atorvastatin Calcium 40 MG Oral Tablet [...] (09/03/2009): Per Obesity Taxonomy Coronary atherosclerosis of [place] [...] mRNA, LNP-s, No Pre serve, 2-Dose Series ([employer]) 11/08/2020,10/11/2020 HEP A - Hepatitis A (Adult > 18 yrs) 04/11/2011, 09/20/2010 Hepatitis B, 20+ yrs 07/05/2015 Pneumococcal Conjugate Vacci ne, 20-valent (Ufffsuu94) 03/13/2023 Pneumococcal Polysaccharide PPV23 (Pneumovax) 02/19/2018,03/09/2007 Seasonal [...] No 05/17/2024 Does the household have a [facility] source of income? (Household - [...] for effectiveness, appropriate waste drawn for labs. Hand Roller came to drawn peripheral PT/INR. Venofer started, [...] 3:00 PM EDT Hem/Onc Treatment Hematology/Oncology Treatment, [place] [facility] [phone] 09/08/2024 8:00 AM EDT Imaging [facility] 2nd Floor Cardiology, [place] 132 [facility] [place] [address] 09/13/2024 1:00 PM EDT [facility] [address] [place] [address] 09/14/2024 2:00 PM EDT Office Visit Hematology/Oncology [facility] 200 [facility] [phone] Sunil Bourgeois MD 200 [facility] [address] 09/15/2024 9:30 AM EDT Telemedicine Pharmacy, [facility] 132 [facility] [place] [address] [facility] 132 [facility] [place] [address] 09/29/2024 1:00 PM EDT Office Visit Family Practice [facility] 132 [facility] [place] [address] Jadiel Epstein CRNP 132 [facility] [place] [address] 10/18/2024 2:20 PM EDT Telemedicine Hepatology, [address] [place] [address] Enid Saldana , DO [address] [place], [place] [address] 11/10/2024 12:30 PM EDT Telemedicine Psychiatry [facility] [address] [place] [address] Nhi Fritz CRNP [address] [place] [address] 12/14/2024 12:20 PM EDT Office Visit [facility] 132 [facility] [place] [address] Scott Weldon MD 132 [facility] [place] [address] 03/13/2025 2:00 PM EDT Office Visit Nephrology, [facility] 200 [place] [address] Jonathan Mathew MD 200 [place] [address] 06/16/2025 11:40 AM EST Office Visit [facility] 132 [facility] [place] [address] Scott Weldon MD 132 [facility] [address] Scheduled Procedures Name Priority Associated Diagnoses Date/Ti [...] this encounter Medical Devices Implanted Type Area Client Services Director Device Identifier Shelf Expiration Date Model / Serial / Lot Neurostimul Intellis Adaptiv - [id number] - [id number] Implanted:Qty: 1 on 08/22/2022 by Rafia Small MD at OR [facility] N/A: Spine Lumbar [employer] 06/21/2023 [id number] / [id number] / Description:battery Medtronic Lead Kit 60 Cm Implanted:Qty: 1 on 08/22/2022 by Rafia Small MD at OR [facility] N/A: Spine Lumbar 02/01/2026 [id number] / / [id number] Medtronic Lead Kit 60cm Implanted:Qty: 1 on 08/22/2022 by Rafia Small MD at OR [facility] N/A: Spine Lumbar 03/21/2026 [id number] / / [id number] Envelope Tyrx Med Antibacteril - [id number] Implanted:Qty: 1 on 08/22/2022 by Rafia Small MD at OR [facility] N/A: Spine Lumbar [employer] 03/10/2023 [id number] / / [id number] Hemostatic Clip Res 235cm - [id number] Implanted:Qty: 4 on 10/05/2023 by Aj Pruett DO at ENDOSCOPY [facility] : ENDOSCOPY 02/03/2026 [id number] / / Hemostatic Clip Res 235cm - [id number] Implanted:Qty: 1 on 10/05/2023 by Aj Pruett DO at ENDOSCOPY [facility] : ENDOSCOPY 02/02/2026 [id number] / / documented as of this encounter [...] * PT INR (07/11/2024 10:12 AM EST) Pathologist [facility] Prothrombin Time 14.7 11.6 - 15.2 seconds 07/11/2024 12:15 PM EST [facility] 56-02 INR 1.1 0.8 - 1.2 07/11/2024 12:15 PM EST [facility] 56-02 Blood Venous blood specimen / Unknown Central Line / Unknown 07/11/2024 10:12 AM EST 07/11/2024 11:48 AM EST Narrative [facility] 56-02 - 07/11/2024 12:15 PM EST Warfarin Therapy INR: 2.0-3.0 conventional anticoagulation INR: 2.5-3.5 high intensity anticoagulation us Adam COHEN LAB BLOOD ORDERABLES Final Result [facility] [address] [place] [address] * DIFFERENTIAL, TECHNOLOGIST REVIEW (07/11/2024 10:00 AM EST) Pathologist [facility] nRBCs 07/11/2024 12:06 PM EST [facility] 56-02 Blood Venous blood specimen / Unknown Central Line / Unknown 07/11/2024 10:00 AM EST 07/11/2024 11:48 AM EST us Sunil Bourgeois MD LAB BLOOD ORDERABLES Final Res ult [facility] 56- [address] [place], [place] [phone] * (ABNORMAL) DIFFERENTIAL, AUTOMATED (07/11/2024 10:00 AM EST) Pathologist [facility] WBC 4.47 4.00 - 10.80 K/uL 07/11/2024 12:06 PM [facility] 56-02 Neutrophils % 68.8 40.0 - 75.0 % 07/11/2024 12:06 PM [facility] 56-02 Lymphocytes % 18.3 18.0 - 42.0 % 07/11/2024 12:06 PM [facility] 56-02 Monocytes % 7.4 1.0 - 11.0 % 07/11/2024 12:06 PM [facility] 56-02 Eosinophils % 5.1 0.0 - 6.0 % 07/11/2024 12:06 PM [facility] 56-02 Basophils % 0.4 0.0 - 2.0 % 07/11/2024 12:06 PM [facility] 56-02 Absolute Neutrophils 3.07 1.80 - 7.70 K/uL 07/11/2024 12:06 PM [facility] 56-02 Absolute Lymphocytes 0.82(L) 1.00 - 4.80 K/ul 07/11/2024 12:06 PM [facility] 56-02 Absolute Monocytes 0.33 0.00 - 1.10 K/uL 07/11/2024 12:06 PM [facility] 56-02 Absolute Eosinophils 0.23 0.00 - 0.70 K/uL 07/11/2024 12:06 PM [facility] 56-02 Absolute Basophils 0.02 0.00 - 0.20 K/uL 07/11/2024 12:06 PM [facility] 56-02 Blood Venous blood specimen / Unknown Central Line / Unknown 07/11/2024 10:00 AM EST 07/11/2024 11:48 AM EST Sunil Bourgeois MD LAB BLOOD ORDERABLES Final Res ult [facility] 56[facility] [address] [place], [place] [address] * (ABNORMAL) CBC (07/11/2024 10:00 AM EST) Pathologist [facility] WBC 4.47 4.00 - 10.80 K/uL 07/11/2024 12:06 PM EST [address] RBC 4.05 3.85 - 5.15 M/uL 07/11/2024 12:[address] HGB 11.4(L) 12.0 - 15.3 g/dL 07/11/2024 12:[address] HCT 35.2(L) 36.0 - 45.2 % 07/11/2024 12:06 PM [facility] 56 MCV 86.9 81.5 - 97.5 fL 07/11/2024 12:06 PM [facility] 56 MCH 28.1 27.0 - 34.0 pg 07/11/2024 12:06 PM [facility] 56 MCHC 32.4 32.0 - 36.0 g/dL 07/11/2024 12:06 PM [facility] 56 RDW 15.5 11.5 - 15.5 % 07/11/2024 12:06 PM [facility] 56 PLT 48(L) 140 - 400 K/uL 07/11/2024 12:06 PM [facility] 56 MPV 9.9 6.6 - 11.1 fL 07/11/2024 12:06 PM [facility] 5602 Blood Venous blood specimen / Unknown Central Line / Unknown 07/11/2024 10:00 AM EST 07/11/2024 11:48 AM EST Sunil Bourgeois MD LAB BLOOD ORDERABLES Final Res ult Performing Organization Address City/[facility]/ZIP Co de Phone Number [facility] [place] 56-[address] [place] [address] * IRON SCREEN, INCLUDING TIBC (07/11/2024 10:00 [...] ORDERABLES Final Res ult Performing Organization Address [facility] de Phone Number LABORATORY [facility] [place] [address] [place] [address] * (ABNORMAL) FERRITIN (07/11/2024 10:00 AM EST) Ferritin 306(H) 13 - 150 ng/mL 07/12/2024 1:19 AM EST [facility] [place] Comment:Postmenopausal women have higher ferritin levels than pre-menopausal women. The above reference interval is based on pre-menopausal women. Blood Venous blood specimen / Unknown Central Line / Unknown 07/11/2024 10:00 AM EST 07/11/2024 11:48 AM EST Sunil Bourgeois MD LAB BLOOD ORDERABLES Final Res ult Performing Organization Address [facility] Co de Phone Number LABORATORY [facility] [place] [address] [place] [address] documented in this encounter Visit Diagnoses Diagnosis [...] 2.2 mL of Sterile Water for Injection, LONG TERM, into the vial, directing the diluent stream [...] Power of Attor narda? No Care Teams Clinical Project Manager Relationship Specialty Start Date End Date Scott Weldon MD [address] [place] [address] PCP - General Family Medicine 08/03/18 documented as of this encounter
--- OUTSIDE RECORDS SUMMARY | 2024-09-10 21:15 | External Medical Summary | Summary of Care ---
Author Name Unknown Organization [facility] Address [address] [facility] [place] [address] Phone [phone] Care Team Providers Care Tobacco Drier Operator Name Role Phone Scott Weldon MD Primary Care Provider + Reason for Visit * Reason Onset Date Comments Medication Discussion 08/12/2024 Ozempic re start? Encounter Details Date Type Department Care Team (Late st Contact Info) Description 08/12/2024 Telephone Pharmacy, Jayesh Regan [address] [address] Danielle Anderson, [facility] [address] [facility] [place] [address] Medication Discussion (Ozempic restart?) Allergies Active Allergy [...] 5 02/18/20 17 Active Insulin Infusion Pump (MINIMBeintoo 630G INSULIN PUMP) KITIndications:Typ e 2 diabetes [...] suspected opioid overdose. Seek immediate medical attention. [email or web address] 1 Each 3 11/28/19 23 Active NovoLIN [...] MG/DOSE)) Inject under the skin. Obtaining from [employer] Active Atorvastatin Calcium 40 MG Oral Tablet [...] Per Obesity Taxonomy Coronary atherosclerosis of [place] coronary artery 09/15/2008 10/03/2008 Malaise and fatigue [...] mRNA, LNP-s, No Pre serve, 2-Dose Series (Yapta) 11/08/2020,10/11/2020 HEP A - Hepatitis A (Adult > 18 yrs) 04/11/2011, 09/20/2010 Hepatitis B, 20+ yrs 07/05/2015 Pneumococcal Conjugate Vacci ne, 20-valent ([id number]) 03/13/2023 Pneumococcal Polysaccharide PPV23 (Pneumovax) 02/19/2018,03/09/2007 Seasonal [...] Notes * Telephone Encounter - Danielle Anderson, [facility] - 08/16/2024 3:07 PM EDT Noted by MTM. I have been making adjustments to her pump to help combat the higher blood sugars. Will await decision about ozempic. Thank you! Danielle Anderson, PharmD, BCACP Clinical Pharmacist Medication Therapy Disease Management 08/16/2024, 3:07 PM * Telephone Encounter - Kathie Soares LPN - 08/16/2024 1:01 PM EDT Sent [employer] message to patient regarding message from provider. [...] 3:00 PM EDT Hem/Onc Treatment Hematology/[facility] [place] [facility] [address] 09/08/2024 8:00 AM EDT Imaging [facility] 2nd Floor Cardiology, [place] [address] [place] [address] 09/13/2024 1:00 PM EDT Office Visit Pharmacy, [facility] [address] [address] 09/14/2024 2:00 PM EDT Office Visit Hematology/Oncology [address] [place] [phone] Sunil Bourgeois MD [address] [facility] [address] 09/15/2024 9:30 AM EDT Telemedicine Pharmacy, [facility] [address] [place] [address] [place] [address] 09/29/2024 1:00 PM EDT Office Visit Family Practice [facility] [address] [place] [address] Jadiel Epstein CRNP [address] [place] [address] 10/18/2024 2:20 PM EDT Telemedicine Hepatology, [place] [address] [place] [address] Les Enid Olya Becerril, DO [address] [facility], [place] [id number] 11/10/2024 12:30 PM EDT Telemedicine Psychiatry [facility] [address] [place] [address] Nhi Fritz CRNP [address] [place] [address] 11/18/2024 2:40 PM EDT Office Visit Nephrology, [facility] 200 [facility] [place] [address] Jonathan Mathew MD 200 [place] [address] 12/14/2024 12:20 PM EDT Office Visit [facility] [address] [place] [address] Scott Weldon MD [address] [facility] [place] [address] 06/16/2025 11:40 AM EST Office Visit [facility] [address] [place] [address] Scott Weldon MD [address] [facility] [place] [address] Scheduled Orders Name Type Priority Associated Diagnoses [...] this encounter Medical Devices Implanted Type Area Cement Paver Device Identifier Shelf Expiration Date Model / Serial / Lot Neurostimul Intellis Adaptiv - [id number] - [id number] Implanted:Qty: 1 on 08/22/2022 by Rafia Small MD at OR [facility] N/A: Spine Lumbar [employer] 06/21/2023 [id number] / [id number] / Description:battery Medtronic Lead Kit 60 Cm Implanted:Qty: 1 on 08/22/2022 by Rafia Small MD at OR [facility] N/A: Spine Lumbar 02/01/2026 [id number] / / [id number] Medtronic Lead Kit 60cm Implanted:Qty: 1 on 08/22/2022 by Rafia Small MD at OR [facility] N/A: Spine Lumbar 03/21/2026 [id number] / / [id number] Envelope Tyrx Med Antibacteril - [id number] Implanted:Qty: 1 on 08/22/2022 by Rafia Small MD at OR [facility] N/A: Spine Lumbar [employer] 03/10/2023 [id number] / / [id number] Hemostatic Clip Res 235cm - [id number] Implanted:Qty: 4 on 10/05/2023 by Aj Pruett DO at ENDOSCOPY [facility] [employer] : ENDOSCOPY 02/03/2026 [id number] / / Hemostatic Clip Res 235cm - [id number] Implanted:Qty: 1 on 10/05/2023 by Aj Pruett DO at ENDOSCOPY [facility] : ENDOSCOPY 02/02/2026 [id number] / / documented as of this encounter [...] Power of Attor narda? No Care Teams Tobacco Drier Operator Relationship Specialty Start Date End Date Scott Weldon MD [address] [address] PCP - General Family Medicine 08/03/18 documented as of this encounter
--- OUTSIDE RECORDS SUMMARY | 2024-09-10 21:16 | External Medical Summary | Summary of Care ---
Author Name Unknown Organization [facility] Address [address] [facility] [place] [address] Phone [phone] Care Team Providers Care Research & Insights Executive Name Role Phone Scott Weldon MD Primary Care Provider + Reason for Visit * Reason Onset Date Comments Medication Refill 08/15/2024 Encounter Details Date Type Department Care Team (Late st Contact Info) Description 08/15/2024 Telephone Family Practice [facility] [address] [facility] [place] [address] Scott Weldon MD [address] [place] [address] Medication Refill Allergies Active Allergy Reactions Criticality Noted Date Comments Naproxen Sodium Bleeding High 11/29/2013 Pollen 12/03/2022 Seasonal Food (See Comments) Anaphylaxis High 04/20/2019 Hot peppers (oils) Kiwi Extract Anaphylaxis High 04/20/2019 documented as of this encounter (statuses as of 08/15/2024) Medications insulin glargine (LANTUS SOLOSTAR) 100 UNIT/ML [...] 5 02/18/20 17 Active Insulin Infusion Pump (MINIMAdviqo 630G INSULIN PUMP) KITIndications:Typ e 2 diabetes [...] suspected opioid overdose. Seek immediate medical attention. [email or web address] 1 Each 3 11/28/19 23 Active NovoLIN [...] MG/DOSE)) Inject under the skin. Obtaining from [employer] Active Atorvastatin Calcium 40 MG Oral Tablet [...] as of this encounter (statuses as of 08/15/2024) Active Problems Problem Noted Date Diagnosed Date [...] as of this encounter (statuses as of 08/15/2024) Resolved Problems Problem Noted Date Diagnosed Date [...] (09/03/2009): Per Obesity Taxonomy Coronary atherosclerosis of [place] coronary artery 09/15/2008 10/03/2008 Malaise and fatigue [...] as of this encounter (statuses as of 08/15/2024) Immunizations Name Administration Dates Next Due COVID-19 mRNA, LNP-s, No Pre serve, 2-Dose Series (Ziebel) 11/08/2020,10/11/2020 HEP A - Hepatitis A (Adult > 18 yrs) 04/11/2011, 09/20/2010 Hepatitis B, 20+ yrs 07/05/2015 Pneumococcal Conjugate Vacci ne, 20-valent ([id number]) 03/13/2023 Pneumococcal Polysaccharide PPV23 (Pneumovax) 02/19/2018,03/09/2007 Seasonal [...] Telephone Encounter - Mila Sin LPN - 08/15/2024 11:21 AM EDT Received pt assistance medication Novolin Placed in med room fridge Called pt, aware documented in this encounter Plan of Treatment Upcoming Encounters Date Type Department Care Team (Late st Contact Info) Description 08/22/2024 3:00 PM EDT Hem/Onc Treatment Hematology/Oncology Treatment, [place] [address] [place] [address] 09/08/2024 8:00 AM EDT Imaging [facility] 2nd Floor Cardiology, [place] [address] [place] [phone] 09/13/2024 1:00 PM EDT Office Visit Pharmacy, [place] [address] [place] [address] Jayesh [address] [address] 09/14/2024 2:00 PM EDT Office Visit Hematology/Oncology [facility] [address] [facility] [place] [phone] Sunil Bourgeois MD [address] [facility] [place] [address] 09/15/2024 9:30 AM EDT Telemedicine Pharmacy, [facility] [address] [place] [address] [facility] [place] [address] 09/29/2024 1:00 PM EDT Office Visit Family Practice [facility] [address] [place] [address] Jadiel Epstein CRNP [address] [place] [address] 10/18/2024 2:20 PM EDT Telemedicine Hepatology, [place] [address] [facility] [place] [address] Enid Saldana DO [address] [place] [address] 11/10/2024 12:30 PM EDT Telemedicine Psychiatry [facility] 68 [place] [address] Lam Nhi NOEL Oro 68 [place] [address] 12/14/2024 12:20 PM EDT Office Visit [facility] [address] [facility] [place] [address] Scott Weldon MD [address] [facility] [address] 03/13/2025 2:00 PM EDT Office Visit Nephrology, [facility] [address] [place] [address] Jonathan Mathew MD [address] [facility] [place] [address] 06/16/2025 11:40 AM EST Office Visit [facility] [address] [facility] [place] [address] Scott Weldon MD 132 [place] [address] Scheduled Procedures Name Priority Associated Diagnoses Date/Ti [...] this encounter Medical Devices Implanted Type Area Test Operator Device Identifier Shelf Expiration Date Model / Serial / Lot Neurostimul Intellis Adaptiv - [id number] - [id number] Implanted:Qty: 1 on 08/22/2022 by Rafia Small MD at OR [facility] N/A: Spine Lumbar [employer] 06/21/2023 [id number] / [id number] / Description:battery Medtronic Lead Kit 60 Cm Implanted:Qty: 1 on 08/22/2022 by Rafia Small MD at OR [facility] N/A: Spine Lumbar 02/01/2026 [id number] / / [id number] Medtronic Lead Kit 60cm Implanted:Qty: 1 on 08/22/2022 by Rafia Small MD at OR [facility] N/A: Spine Lumbar 03/21/2026 [id number] / / [id number] Envelope Tyrx Med Antibacteril - [id number] Implanted:Qty: 1 on 08/22/2022 by Rafia Small MD at OR [facility] N/A: Spine Lumbar [employer] 03/10/2023 [id number] / / [id number] Hemostatic Clip Res 235cm - [id number] Implanted:Qty: 4 on 10/05/2023 by Aj Pruett DO at ENDOSCOPY [facility] [employer] : ENDOSCOPY 02/03/2026 [id number] / / Hemostatic Clip Res 235cm - [id number] Implanted:Qty: 1 on 10/05/2023 by Aj Pruett DO at ENDOSCOPY [facility] [employer] : ENDOSCOPY 02/02/2026 [id number] / / documented as of this encounter [...] Power of Attor narda? No Care Teams Research & Insights Executive Relationship Specialty Start Date End Date Scott Weldon MD [address] [place] [address] PCP - General Family Medicine 08/03/18 documented as of this encounter
--- OUTSIDE RECORDS SUMMARY | 2024-09-10 21:16 | External Medical Summary | Summary of Care ---
Author Name Unknown Organization [facility] Address [address] [place] [facility] [place] [place] [address] Phone [phone] Care Team Providers Care Receptionist Scheduler Name Role Phone Scott Weldon MD Primary Care Provider + Reason for Visit * Reason Onset Date Comments Medication Discussion 08/12/2024 Ozempic re start? Encounter Details Date Type Department Care Team (Late st Contact Info) Description 08/12/2024 Telephone Pharmacy, Jayesh Regan [address] [address] Danielle Anderson, [facility] 200 [place] [address] Medication Discussion (Ozempic restart?) Allergies Active Allergy Reactions Criticality Noted Date Comments Naproxen Sodium Bleeding High 11/29/2013 Pollen 12/03/2022 Seasonal Food (See Comments) Anaphylaxis High 04/20/2019 Hot peppers (oils) Kiwi Extract Anaphylaxis High 04/20/2019 documented as of this encounter (statuses as of 08/13/2024) Medications insulin glargine (LANTUS SOLOSTAR) 100 UNIT/ML [...] 5 02/18/20 17 Active Insulin Infusion Pump ([employer] 630G INSULIN PUMP) KITIndications:Typ e 2 diabetes [...] suspected opioid overdose. Seek immediate medical attention. [email or web address] 1 Each 3 11/28/19 23 Active NovoLIN [...] MG/DOSE)) Inject under the skin. Obtaining from [employer] Active Atorvastatin Calcium 40 MG Oral Tablet [...] as of this encounter (statuses as of 08/13/2024) Active Problems Problem Noted Date Diagnosed Date [...] as of this encounter (statuses as of 08/13/2024) Resolved Problems Problem Noted Date Diagnosed Date [...] (09/03/2009): Per Obesity Taxonomy Coronary atherosclerosis of [place] coronary artery 09/15/2008 10/03/2008 Malaise and fatigue [...] as of this encounter (statuses as of 08/13/2024) Immunizations Name Administration Dates Next Due COVID-19 mRNA, LNP-s, No Pre serve, 2-Dose Series (Whitevector) 11/08/2020,10/11/2020 HEP A - Hepatitis A (Adult > 18 yrs) 04/11/2011, 09/20/2010 Hepatitis B, 20+ yrs 07/05/2015 Pneumococcal Conjugate Vacci ne, 20-valent (Drezdra90) 03/13/2023 Pneumococcal Polysaccharide PPV23 (Pneumovax) 02/19/2018,03/09/2007 Seasonal [...] Orientation Straight 10/26/2019 3 :40 PM EDT Occupation Industry Job Start Date [...] Notes * Telephone Encounter - Danielle Anderson, [facility] - 08/12/2024 7:34 PM EST [...] 3:00 PM EDT Hem/Onc Treatment Hematology/Oncology Treatment, [place] [facility] [phone] 09/08/2024 8:[address] [facility] 2nd Floor Cardiology, [place] 132 [facility] [place] [address] 09/13/2024 1:00 PM EDT Office Visit Pharmacy, [facility] [address] [facility] [phone] [address] [address] 09/14/2024 2:00 PM EDT Office Visit Hematology/Oncology [address] [place] [phone] Sunil Bourgeois MD 200 [facility] [place] [address] 09/15/2024 9:30 AM EDT Telemedicine Pharmacy, [facility] 132 [facility] [place] [address] [address] [address] 09/29/2024 1:00 PM EDT Office Visit Family Practice [facility] [address] [place] [address] Jadiel Epstein CRNP [address] [place] [address] 10/18/2024 2:20 PM EDT Telemedicine Hepatology, [place] [address] [place], [place] [phone] Enid Saldana, [address] [place], [place] [address] 11/10/2024 12:30 PM EDT Telemedicine Psychiatry [facility] 68 [place] [address] Nhi Fritz CRNP 68 [place] [address] 12/14/2024 12:20 PM EDT Office Visit [facility] [place] [address] Scott Weldon MD 132 [facility] [place] [address] 03/13/2025 2:00 PM EDT Office Visit [facility] [address] [place] [address] Jonathan Mathew MD [address] [place] [address] 06/16/2025 11:40 AM EST Office Visit [facility] [address] [facility] [place] [address] Scott Weldon MD 132 [facility] [place] [address] Scheduled Procedures Name Priority Associated Diagnoses Date/Ti [...] this encounter Medical Devices Implanted Type Area Stereo Operator Device Identifier Shelf Expiration Date Model / Serial / Lot Neurostimul Intellis Adaptiv - [id number] - [id number] Implanted:Qty: 1 on 08/22/2022 by Rafia Small MD at OR [facility] N/A: Spine Lumbar [employer] 06/21/2023 [id number] / [id number] / Description:battery Medtronic Lead Kit 60 Cm Implanted:Qty: 1 on 08/22/2022 by Rafia Small MD at OR [facility] N/A: Spine Lumbar 02/01/2026 [id number] / / [id number] Medtronic Lead Kit 60cm Implanted:Qty: 1 on 08/22/2022 by Rafia Small MD at OR [facility] N/A: Spine Lumbar 03/21/2026 [id number] / / [id number] Envelope [employer]x Med Antibacteril - [id number] Implanted:Qty: 1 on 08/22/2022 by Rafia Small MD at OR [facility] N/A: Spine Lumbar [employer] 03/10/2023 [id number] / / [id number] Hemostatic Clip Res 235cm - [id number] Implanted:Qty: 4 on 10/05/2023 by Aj Pruett, DO at ENDOSCOPY [facility] : ENDOSCOPY 02/03/2026 [id number] / / Hemostatic Clip Res 235cm - [id number] Implanted:Qty: 1 on 10/05/2023 by Aj Pruett, DO at ENDOSCOPY [facility] : ENDOSCOPY 02/02/2026 [id number] / / documented as of this encounter [...] Power of Attor narda? No Care Teams Receptionist Scheduler Relationship Specialty Start Date End Date Scott Weldon MD [address] [place] [address] PCP - General Family Medicine 08/03/18 documented as of this encounter
--- OUTSIDE RECORDS SUMMARY | 2024-09-10 21:16 | External Medical Summary | Summary of Care ---
Author Name Unknown Organization [facility] Address [address] [place] [address] Phone [phone] Care Team Providers Care Veneer Clipper Name Role Phone Scott Weldon MD Primary Care Provider + Reason for Visit * Reason Comments Acute Patient is here toda y as an acute walk in due to sore on the lower abdomen that have been present for over a month. She states that they have become painful and draining. Encounter Details Date Type Department Care Team (Late st Contact Info) Description 08/12/2024 11:20 AM EST Office Visit [facility] [address] [facility] [place] [phone] Clarence Alvarado MD [address] [place] [address] Cellulitis of abdominal wall* Allergies Active Allergy Reactions Criticality Noted Date [...] 5 02/18/20 17 Active Insulin Infusion Pump (MINIMRadiospire Networks 630G INSULIN PUMP) KITIndications:Typ e 2 [...] suspected opioid overdose. Seek immediate medical attention. [email or web address] 1 Each 3 11/28/19 23 Active NovoLIN [...] MG/DOSE)) Inject under the skin. Obtaining from IdeaString Active Atorvastatin Calcium 40 MG Oral Tablet [...] mRNA, LNP-s, No Pre serve, 2-Dose Series (FlatClub) 11/08/2020,10/11/2020 HEP A - Hepatitis A (Adult > 18 yrs) 04/11/2011, 09/20/2010 Hepatitis B, 20+ yrs 07/05/2015 Pneumococcal Conjugate Vacci ne, 20-valent ([id number]) 03/13/2023 Pneumococcal Polysaccharide PPV23 (Pneumovax) 02/19/2018,03/09/2007 Seasonal [...] Sign Reading Time Taken Comments Blood Pressure 128/88 08/12/2024 11:42 AM EST Pulse 66 08/12/2024 11:42 AM EST Temperature 36.4 °C (97.5 °F) 08/12/2024 1 1:42 AM EST Respiratory Rate 16 08/12/2024 11:4 2 AM EST Oxygen Saturation 96% 08/12/2024 11: 42 AM EST Inhaled Oxygen Concentration - - Weight 107.2 kg (236 lb 4.8 oz) 025 11:42 AM EST Height 162.6 cm (5' 4") 08/12/2024 11:4 2 AM EST Body Mass Index 40.56 08/12/2024 11:42 AM EST documented in this encounter Functional Status * [...] documented in this encounter Progress Notes * Clarence Alvarado MD - 08/12/2024 11:57 AM EST Subjective: Carmen Tyson is a 54 year old female. Chief Complaint Patient presents with Acute Patient is here today as an acute walk in due to sore on the lower abdomen that have been present for over a month. She states that they have become painful and draining. HPI: 54-year-old with known diabetes as well as cirrhosis seen today because of some skin ulcerations on her lower abdomen. She does have an insulin pump which is in place in the the left mid abdomen. She tells me she never has the pump located any lower than the level of the umbilicus. Her ulcerations are lower. She knows that she has scratched the area and she knows that her cats at home have crawled over her abdomen. She has not had fever. 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 CPAP every night at bedtime. Glucagon Emergency 1 MG Injection Kit As directed 1 Kit 3 Naloxone HCl 4 MG/0.1ML Nasal Liquid (Narcan Nasal) Administer 1 spray into 1 nostril for suspectedopioid overdose. Seek immediate medical attention. [email or web address]?v=[email or web address] 1 Each 3 NovoLIN R ReliOn 100 [...] MG/DOSE)) Inject under the skin. Obtaining from IdeaString Atorvastatin Calcium 40 MG Oral Tablet (Lipitor) [...] as needed for Anxiety. 90 Tablet 3 Buprenorphine 5 MCG/HR Transdermal Patch Weekly (Butrans) Place 1 Patch topically on the skin once a week. 4 Patch 0 metFORMIN HCl ER 500 MG Oral Tablet Extended Release 24 Hour (Glucophage XR) Take 1 Tablet by mouth2 times a day with morning and evening meals. 180 Tablet 4 No current facility-administered medications for this visit. Review of patient's allergies indicates: Allergen Reactions Aleve [Naproxen Sodium] Bleeding Food (See Comments) Anaphylaxis Hot peppers (oils) Kiwi Extract Anaphylaxis Environmental [Pollen] Seasonal Objective: BP 128/88 (BP Site: Left Arm, BP Position: Sitting, BP Cuff Size: Regular) | Pulse 66 | Temp 97.5 °F (36.4 °C) (Tympanic) | Resp 16 | Ht 5' 4" (1.626 m) | Wt 236 lb 4.8 oz (107.2 kg) | SpO2 96% | BMI 40.56 kg/m² | BSA 2.2 m² Physical Exam: CONST: alert, pleasant, no acute distress HEAD: normocephalic, atraumatic SKIN there are 4 separate ulcerations measuring about a cm and a half that are shallow with well demarcated edges and without evidence of spreading erythema or drainage on the lower abdomen ASSESSMENT/PLAN: Cellulitis of abdominal wall (Primary)/skin ulcers abdominal wall-treat mupirocin cream 3 times daily for up to 14 days. If lesions appeared to be worsening, she needs to be seen again. Clarence Alvarado MD documented in this encounter Nursing Notes * Diana Mustafa LPN - 08/12/2024 11:41 AM EST The patient has been properly identified by confirmation of name and date of . Chief Complaint Patient presents with Acute Patient is here today as an acute walk in due to sore on the lower abdomen that have been present for over a month. She states that they have become painful and draining. documented in this encounter Plan of Treatment Upcoming Encounters Date Type Department Care Team (Late st Contact Info) Description 08/22/2024 3:00 PM EDT Hem/Onc Treatment Hematology/Oncology Treatment, [place] [address] [place] [address] 09/08/2024 8:00 AM EDT Imaging [facility] 2nd Floor Cardiology, [place] [facility] [place] [phone] 09/13/2024 1:00 PM EDT [facility] [place] [facility] [address] [facility] [place] [phone] [address] 09/14/2024 2:00 PM EDT Office Visit [facility] [address] [facility] [place] [phone] Sunil Bourgeois MD [address] [facility] [place] [address] 09/15/2024 9:30 AM EDT [facility]icine [facility]acy, [facility] [address] [facility] 132 [place] [address] 09/29/2024 1:00 PM EDT Office Visit Family Practice [facility] [address] [place] [address] Jadiel Epstein CRNP [facility] [address] 10/18/2024 2:20 PM EDT Telemedicine Hepatology, [place] [address] [place] [address] Enid Saldana DO [address] [place] [address] 11/10/2024 12:30 PM EDT Telemedicine Psychiatry [facility] [address] [place] [address] Nhi Fritz CRNP [address] [place] [address] 12/14/2024 12:20 PM EDT Office Visit [facility] [address] [place] [address] Scott Weldon MD [address] [place] [address] 03/13/2025 2:00 PM EDT Office Visit Nephrology, [facility] [address] [facility] [place] [address] Jonathan Mathew MD [address] [facility] [place] [address] 06/16/2025 11:40 AM EST Office Visit [facility] [address] [place] [address] Scott Weldon MD [facility] [place] [address] Scheduled Procedures Name Priority Associated Diagnoses Date/Ti [...] encounter Medical Devices Implanted Type Area Audio Video Technician Device Identifier Shelf Expiration Date Model / Serial / Lot Neurostimul Intellis Adaptiv - [id number] - [id number] Implanted:Qty: 1 on 08/22/2022 by Rafia Small MD at OR [facility] N/A: Spine Lumbar [employer] 06/21/2023 [id number] / [id number] / Description:battery Medtronic Lead Kit 60 Cm Implanted:Qty: 1 on 08/22/2022 by Rafia Small MD at OR [facility] N/A: Spine Lumbar 02/01/2026 [id number] / / [id number] Medtronic Lead Kit 60cm Implanted:Qty: 1 on 08/22/2022 by Rafia Small MD at OR [facility] N/A: Spine Lumbar 03/21/2026 [id number] / / [id number] Envelope Tyrx Med Antibacteril - [id number] Implanted:Qty: 1 on 08/22/2022 by Rafia Small MD at OR [facility] N/A: Spine Lumbar [employer] 03/10/2023 [id number] / / [id number] Hemostatic Clip Res 235cm - [id number] Implanted:Qty: 4 on 10/05/2023 by Aj Pruett DO at [facility] : ENDOSCOPY 02/03/2026 [id number] / / Hemostatic Clip Res 235cm - [id number] Implanted:Qty: 1 on 10/05/2023 by Aj Pruett DO at [facility] : ENDOSCOPY 02/02/2026 [id number] / / documented as of this encounter [...] of Attor narda? No Care Teams Veneer Clipper Relationship Specialty Start Date End Date Scott Weldon MD [address] [place] [address] PCP - General Family Medicine 08/03/18 documented as of this encounter
--- OUTSIDE RECORDS SUMMARY | 2024-09-10 21:16 | External Medical Summary | Summary of Care ---
Author Name Unknown Organization [facility] Address [address] [place] [address] Phone [phone] Care Team Providers Care Hospitality Coordinator Name Role Phone Scott Weldon MD Primary Care Provider + Reason for Visit * Reason Comments Dosage Adjustment In Person (Anticoag Cl inic) Diabetes Follow-Up Insulin Pump Encounter Details Date Type Department Care Team (Late st Contact Info) Description 08/12/2024 10:30 AM EST [facility] [place] [facility] [address] [place] [phone] [facility] [address] [place] [address] Type 2 diabetes mellitus with hemoglobin A1c goal of less than 8.0% ([facility])* Allergies Active Allergy Reactions Criticality Noted Date [...] suspected opioid overdose. Seek immediate medical attention. [email or web address] 1 Each 3 11/28/19 23 Active NovoLIN [...] MG/DOSE)) Inject under the skin. Obtaining from Drik Active Atorvastatin Calcium 40 MG Oral Tablet [...] meals. 180 Tablet 4 08/12/19 25 Active documented as of this encounter [...] Obesity Taxonomy Coronary atherosclerosis of [place] coronary artery 09/15/2008 10/03/2008 Malaise and fatigue [...] mRNA, LNP-s, No Pre serve, 2-Dose Series (OpenRent) 11/08/2020,10/11/2020 HEP A - Hepatitis A (Adult > 18 yrs) 04/11/2011, 09/20/2010 Hepatitis B, 20+ yrs 07/05/2015 Pneumococcal Conjugate Vacci ne, 20-valent ([id number]) 03/13/2023 Pneumococcal Polysaccharide PPV23 (Pneumovax) 02/19/2018,03/09/2007 Seasonal [...] this encounter Progress Notes * Danielle Anderson, [facility] - 08/12/2024 10:37 AM EST Images from the original note were not included. Medication Therapy Disease Management Clinic - Diabetes Management Progress Note Carmen Tyson, identified by name and date of , is a 53 year old female being seen for diabetes management/education. Patient presents for return diabetic visit. And pump download DIABETES: Current diabetic medications: Metformin 1000mg once a day NOT CURRENTLY TAKING DUE TO $$ Jardiance 10 mg once daily eGFR 46 mL/min as of 07/11/24 at [facility] Ozempic 2 mg once weekly- pt has been off for 4+ weeks now PCP advising she stop to see if stomach pain improves Medtronic 630G - Minimed ([id number]) Infusion Set: Quick Set Insulin: Novolin R Basal Rate 12a-8a 2.0 u/hr 8a-1pm 3.6 u/hr 1pm - 3 pm 3.5 u/hr 3p - 12a 3.6 u/hr Bolus: preset 10 units with chocolate milk and 12 units with supper Carb ratio 1:4 Bolus wizard: on and using ISF: 1:10 Blood Glucose Goals: 100-140 Active Insulin Time: 2 hours Lifestyle: Diet: unchanged Glucose Review/SMBG: Readings obtained from patient device Hypoglycemia: Does your blood sugar go below 70 mg/dL? No Hyperglycemia symptoms present: Fatigue, irritability, polydipsia polyurea Recent Labs Units 05/16/24 1433 11/13/23 1007 07/23/23 1200 HEMOGLOBIN A1C - [facility] % 6.5* 6.3* 5.8* Recent Labs Units 07/11/24 1020 06/14/24 1420 05/16/24 1433 ESTIMATED GLOMERULAR FILTRATION RATE - [facility] mL/min 46* 41* 47* CREATININE - [facility] mg/dL 1.4* 1.5* 1.4* HYPERTENSION: Patient on ACEi/ARB: no, not taking BP Readings from Last 3 Encounters: 08/12/24 128/88 07/11/24 126/71 06/30/24 108/66 Blood pressure at goal: yes HYPERLIPIDEMIA: Recent Labs Units 05/16/24 1433 07/23/23 1200 LDL CHOLESTEROL (CALCULATED) - [facility] mg/dL -- 54 LDL CHOLESTEROL (DIRECT MEASURE) - [facility] mg/dL 65 -- Does patient have clinical ASCVD? Yes, is patient LDL less than 55 mg/dL? No: consider switching torosuvastatin in future. Address after more acute/urgent issues with BG are resolved. HEALTH MAINTENANCE REVIEW: Health Maintenance Due Topic Date Due COVID-19 Vaccine ( season) 2024 Diabetic Foot Exam 03/13/2024 ASSESSMENT & PLAN: ICD-10-CM 1. Type 2 diabetes mellitus with hemoglobin A1c goal of less than 8.0% ([facility]) E11.9 Considerations: - activity limited by chronic low back pain - obtaining ozempic and novolin R via PAP - RENAL function - Dexcom supplied by [facility] Medical Glycemic control is unstable and not at goal Patient agreeable to adjust medications as noted below. Basal settings increased as glucose is rising overnight and between meals. ICR/fixed dose continued. ISF strengthened as glucose is not correcting to goal range. Pt agreeable to increase metformin dose today- last eGFR supports higher dose and pt agreeable. States that ozempic has not been taken for 4+ weeks and she has had no changes in her stomach pain/discomfort. States that she has pains that are likely pancreatitis (most recently in the last week or so) but she avoids going to the ER for it. She also showed me numerous lesions/sores on her stomach that did look to be infected and I was able to facilitate an acute visit with a provider today. We called [facility] and were informed that we need income documents for her jardiance application. She will send via [employer] or drop off to clinic at her convenience. We will then need to fax to [facility] rodriguez with id #: [id number]. She has not gotten novolin yet this year, e-secure email sent to [employer]. Patient to SMBG at least 4 times daily, before each meal and at bedtime. Patient aware to contact clinic if any hypoglycemia before next visit. Reviewed rule of 15s. Reviewed appropriate management of hyperglycemia as noted in pump start documentation. MEDICATION CHANGES: yes, see below; [facility] pharmacy[facility] Diabetic Medications: INC Metformin 1000mg twice a day NEED TO GET UPDATED INCOME DOCUMENTS FOR PAP Jardiance 10 mg once daily eGFR 46 mL/min as of 07/11/24 at [facility] Medtronic [employer], LLCG - TechflakesGB ([id number]) Infusion Set: Quick Set Insulin: Novolin R Basal Rate 12a-8a 3.00 u/hr (strengthened) 8a-1pm 3.75 u/hr (strengthened) 1pm - 3 pm 3.5 u/hr 3p - 12a 3.6 u/hr Bolus: preset 10 units with chocolate milk and 12 units with supper Carb ratio 1:4 Bolus wizard: on and using ISF: 1:8 (strengthened) Blood Glucose Goals: 100-140 Active Insulin Time: 2 hours HEALTH MAINTENANCE INTERVENTIONS: Labs: Up to Date Immunizations: Up to Date Foot Exam: due Eye Exam: Up to Date Annual Wellness Visit: Up to Date FOLLOW UP: Return to clinic in 4 weeks 09/13/2024 I spent a total of 40-54 minutes (exact time 54 mins) on the date of service in preparation, delivery, and documentation of the care provided to Carmen Tyson excluding any time spent in the performance of separately billed services. Danielle Anderson, PharmD, BCACP Clinical Pharmacist Medication Therapy Disease Management 08/12/2024, 10:37 AM documented in this encounter Plan of Treatment Upcoming Encounters Date Type Department Care Team (Late st Contact Info) Description 08/22/2024 3:00 PM EDT Hem/Onc Treatment Hematology/Oncology Treatment, [place] [address] [facility] [address] 09/08/2024 8:00 AM EDT [facility] [address] [facility] [place] [phone] 09/13/2024 1:00 PM EDT Office Visit Pharmacy, [facility] [address] [place] [phone] [facility] [address] [place] [address] 09/14/2024 2:00 PM EDT Office Visit Hematology/Oncology [facility] [address] [facility] [place] [phone] Sunil Bourgeois MD [address] [facility] [place] [address] 09/15/2024 9:30 AM EDT Telemedicine Pharmacy, [facility] [address] [place] [address] [facility] [address] [place] [address] 09/29/2024 1:00 PM EDT Office Visit [facility] [address] [place] [address] Jadiel Epstein CRNP [address] [place] [address] 10/18/2024 2:20 PM EDT Telemedicine Hepatology, [place] [address] [place], [place] [phone] Enid Saldana, [address] [place] [address] 11/10/2024 12:30 PM EDT Telemedicine Psychiatry [facility] [address] [place] [address] Nhi Fritz CRNP [address] [place] [address] 12/14/2024 12:20 PM EDT Office Visit [facility] [address] [place] [address] Scott Weldon MD [address] [facility] [place] [address] 03/13/2025 2:00 PM EDT Office Visit Nephrology, [facility] [address] [place], [place] [address] Jonathan Mathew MD [address] [place] [address] 06/16/2025 11:40 AM EST Office Visit [facility] [address] [place] [address] Scott Weldon MD 132 [place] [address] Scheduled Procedures Name Priority Associated Diagnoses Date/Ti [...] this encounter Medical Devices Implanted Type Area Area Coordinator Device Identifier Shelf Expiration Date Model / Serial / Lot Neurostimul Intellis Adaptiv - [id number] - [id number] Implanted:Qty: 1 on 08/22/2022 by Rafia Small MD at OR [facility] N/A: Spine Lumbar [employer] 06/21/2023 [id number] / [id number] / Description:battery Medtronic Lead Kit 60 Cm Implanted:Qty: 1 on 08/22/2022 by Rafia Small MD at OR [facility] N/A: Spine Lumbar 02/01/2026 [id number] / / [id number] Medtronic Lead Kit 60cm Implanted:Qty: 1 on 08/22/2022 by Rafia Small MD at OR [facility] N/A: Spine Lumbar 03/21/2026 [id number] / / [id number] Envelope Tyrx Med Antibacteril - [id number] Implanted:Qty: 1 on 08/22/2022 by Rafia Small MD at OR [facility] N/A: Spine Lumbar [employer] 03/10/2023 [id number] / / [id number] Hemostatic Clip Res 235cm - [id number] Implanted:Qty: 4 on 10/05/2023 by Aj Pruett, DO at ENDOSCOPY [facility] : ENDOSCOPY 02/03/2026 [id number] / / Hemostatic Clip Res 235cm - [id number] Implanted:Qty: 1 on 10/05/2023 by Aj Pruett, DO at [facility]OSCOPY [facility] : ENDOSCOPY 02/02/2026 [id number] / / documented as of this encounter [...] Power of Attor narda? No Care Teams Hospitality Coordinator Relationship Specialty Start Date End Date Scott Weldon MD [address] [place] [address] PCP - General Family Medicine 08/03/18 documented as of this encounter
--- OUTSIDE RECORDS SUMMARY | 2024-09-10 21:16 | External Medical Summary | Summary of Care ---
Author Name Unknown Organization [facility] Address [address] [facility] [place] [address] Phone [phone] Care Team Providers Care Microsoft Systems Engineer Name Role Phone Scott Montoya MD Primary Care Provider + Reason for Visit * Reason Comments New Med Request Encounter Details Date Type Department Care Team (Late st Contact Info) Description 08/10/2024 Refill Family Practice [facility] [address] [facility] [place] [address] Scott Montoya MD [address] [place] [phone] Type II diabetes mellitus with neurological manifestations (HCC)* Allergies Active Allergy Reactions Criticality Noted Date Comments Naproxen Sodium Bleeding High 11/29/2013 Pollen 12/03/2022 Seasonal Food (See Comments) Anaphylaxis High 04/20/2019 Hot peppers (oils) Kiwi Extract Anaphylaxis High 04/20/2019 documented as of this encounter (statuses as of 08/11/2024) Medications insulin glargine (LANTUS SOLOSTAR) 100 UNIT/ML [...] suspected opioid overdose. Seek immediate medical attention. [email or web address]://www.Wallit.com/[email or web address]?v=[email or web address] 1 Each 3 11/28/19 23 Active NovoLIN [...] MG/DOSE)) Inject under the skin. Obtaining from [employer] Active Atorvastatin Calcium 40 MG Oral Tablet [...] meals. 180 Tablet 4 08/12/19 25 Active metFORMIN HCl ER 500 MG Oral Tablet Extended Release 24 Hour (Glucophage XR) Take 2 Tablets by mouth daily. 025 Disconti nued(Ref ill) documented as of this encounter (statuses as of 08/11/2024) Active Problems Problem Noted Date Diagnosed Date [...] as of this encounter (statuses as of 08/11/2024) Resolved Problems Problem Noted Date Diagnosed Date [...] (09/03/2009): Per Obesity Taxonomy Coronary atherosclerosis of [place] coronary artery 09/15/2008 10/03/2008 Malaise and fatigue [...] as of this encounter (statuses as of 08/11/2024) Immunizations Name Administration Dates Next Due COVID-19 mRNA, LNP-s, No Pre serve, 2-Dose Series ([employer]) 11/08/2020,10/11/2020 HEP A - Hepatitis A (Adult > 18 yrs) 04/11/2011, 09/20/2010 Hepatitis B, 20+ yrs 07/05/2015 Pneumococcal Conjugate Vacci ne, 20-valent ([id number]) 03/13/2023 Pneumococcal Polysaccharide PPV23 (Pneumovax) 02/19/2018,03/09/2007 Seasonal [...] Miscellaneous Notes * Telephone Encounter - Marcia Weber, [facility] - 08/11/2024 2:27 PM EST Signed Prescriptions: Disp Refills metFORMIN HCl ER 500 MG Oral Tablet Extend*180 Ta*4 Sig: Take 1 Tablet by mouth 2 times a day with morning and evening meals.Authorizing Provider: SCOTT MONTOYA User: MARCIA WEBER * Telephone Encounter - Marcia Weber [facility] - 08/11/2024 2:25 PM EST eGFR above 45. Script sent. Marcia Weber PharmD, [facility] Clinical Pharmacist Medication Therapy Disease Management 08/11/2024, 2:25 PM * Telephone Encounter - Kami Mohr [facility] - 08/11/2024 1:43 PM EST Pending Prescriptions: Disp Refills metFORMIN HCl 1000 MG Oral Tablet [Pharmac* 0 * Telephone Encounter - Kami Mohr [facility] - 08/11/2024 1:29 PM EST Forwarding to [facility] clinic for review. Metformin 1000mg one tab daily previously stopped on 05/16/24 due to renal function. On 07/12/24, metformin re-entered as a historical med (500mg ER take 2 tabs daily). Please advise on tablet formulation and strength. Thank you, Kami Mohr PharmD Clinical Pharmacist [facility] [phone] 08/11/2024 1:34 PM documented in this encounter Plan of Treatment Upcoming Encounters Date Type Department Care Team (Late st Contact Info) Description 08/12/2024 10:30 AM EST Office Visit Pharmacy, [facility] [address] [facility] [phone] [facility] [address] [facility] [place] [address] 08/16/2024 2:30 PM EDT Hem/Onc Treatment Hematology/Oncology Treatment, [place] [address] [place] [phone] Nora, Chair [address] [place] [address] 09/08/2024 8:00 AM EDT Imaging [facility] 2nd Floor Cardiology, [place] [address] [place] [phone] 09/14/2024 2:00 PM EDT Office Visit Hematology/Oncology [facility] [place] [address] [place] [phone] Sunil Bourgeois MD [address] [place] [address] 09/15/2024 9:30 AM EDT Telemedicine Pharmacy, [facility] [address] [place] [address] [facility] [address] [place] [address] 09/29/2024 1:00 PM EDT Office Visit Family Practice [facility] [address] [place] [address] Jadiel Epstein CRNP [address] [place] [address] 10/18/2024 2:20 PM EDT Telemedicine Hepatology, [place] [address] [place] [address] Enid Saldana, [address] [place], [place] [phone] 11/10/2024 12:30 PM EDT Telemedicine Psychiatry [facility] [address] [place] [address] Nhi Fritz CRNP [address] [place] [address] 12/14/2024 12:20 PM EDT Office Visit [facility] [address] [facility] [place] [address] Scott Montoya MD [address] [place] [address] 03/13/2025 2:00 PM EDT Office Visit Nephrology, [facility] [address] [facility] [place] [address] Jonathan Mathew MD 200 [facility] [place] [address] 06/16/2025 11:40 AM EST Office Visit [facility] [address] [place] [address] Scott Montoya MD [address] [place] [place] [address] Scheduled Procedures Name Priority Associated Diagnoses Date/Ti [...] this encounter Medical Devices Implanted Type Area Tax Intern Device Identifier Shelf Expiration Date Model / Serial / Lot Neurostimul Intellis Adaptiv - [id number] - [id number] Implanted:Qty: 1 on 08/22/2022 by Rafia Small MD at OR [facility] N/A: Spine Lumbar [employer] 06/21/2023 [id number] / [id number] / Description:battery Medtronic Lead Kit 60 Cm Implanted:Qty: 1 on 08/22/2022 by Rafia Small MD at OR [facility] N/A: Spine Lumbar 02/01/2026 [id number] / / [id number] Medtronic Lead Kit 60cm Implanted:Qty: 1 on 08/22/2022 by Rafia Small MD at OR [facility] N/A: Spine Lumbar 03/21/2026 [id number] / / [id number] Envelope Tyrx Med Antibacteril - [id number] Implanted:Qty: 1 on 08/22/2022 by Rafia Small MD at OR [facility] N/A: Spine Lumbar [employer] 03/10/2023 [id number] / / [id number] Hemostatic Clip Res 235cm - [id number] Implanted:Qty: 4 on 10/05/2023 by Aj Pruett DO at ENDOSCOPY [facility] ENDOSCOPY 02/03/2026 [id number] / / Hemostatic Clip Res 235cm - [id number] Implanted:Qty: 1 on 10/05/2023 by Aj Pruett DO at ENDOSCOPY [facility] [employer] : ENDOSCOPY 02/02/2026 [id number] / / documented as of this encounter Visit Diagnoses Diagnosis Type II diabetes mellitus with neurological manifestations (HCC)- Primary Type II or unspecified type diabetes mellitus with neurological manifestations, not stated as uncontrolled documented in this encounter Advance Directives * [...] Power of Attor narda? No Care Teams Microsoft Systems Engineer Relationship Specialty Start Date End Date Scott Montoya MD [address] [place] [address] PCP - General Family Medicine 08/03/18 documented as of this encounter
--- OUTSIDE RECORDS SUMMARY | 2024-09-10 21:16 | External Medical Summary | Summary of Care ---
Author Name Unknown Organization [facility] Address [address] [place] [facility] [place] [address] Phone [phone] Care Team Providers Care Astronomy Department Chair Name Role Phone Scott Weldon MD Primary Care Provider + Reason for Visit * Reason Comments IV Therapy Venofer Procedure [facility] Encounter Details Date Type Department Care Team (Latest Contact Info) Description 07/11/2024 10:00 AM EST Hem/Onc Treatment Hematology/Oncology Treatment, [place] [address] [place] [address] Iron deficiency anemia due to [...] 5 02/18/20 17 Active Insulin Infusion Pump (MINIMknowNormal 630G INSULIN PUMP) KITIndications:Ty pe 2 diabetes [...] suspected opioid overdose. Seek immediate medical attention. [email or web address] [email or web address] [email or web address]/[email or web address]?v=[email or web address] 1 Each 3 11/28/19 23 Active NovoLIN [...] MG/DOSE)) Inject under the skin. Obtaining from [employer] Active Atorvastatin Calcium 40 MG Oral Tablet [...] (09/03/2009): Per Obesity Taxonomy Coronary atherosclerosis of [place] coronary artery 09/15/2008 10/03/2008 Malaise and fatigue [...] mRNA, LNP-s, No Pre serve, 2-Dose Series (Briggo) 11/08/2020,10/11/2020 HEP A - Hepatitis A (Adult > 18 yrs) 04/11/2011, 09/20/2010 Hepatitis B, 20+ yrs 07/05/2015 Pneumococcal Conjugate Vacci ne, 20-valent ([id number]) 03/13/2023 Pneumococcal Polysaccharide PPV23 (Pneumovax) 02/19/2018,03/09/2007 Seasonal [...] No 05/17/2024 Does the household have a [facility] general hospitall[facility] source of income? (Household - for ages [...] for effectiveness, appropriate waste drawn for labs. Insurance Salesman came to drawn peripheral PT/INR. Venofer started, [...] 3:00 PM EDT Hem/Onc Treatment [facility]ematology[facility] [place] [facility] [phone] 09/08/2024 8:00 AM EDT Imaging [facility] 2nd Floor Cardiology, [place] 132 [facility] [place] [phone] 09/13/2024 1:00 PM EDT [facility] [phone] [address] [address] 09/14/2024 2:00 PM EDT Office Visit Hematology/Oncology [facility] [address] [facility] [place] [phone] Sunil Bourgeois MD [facility] [address] 09/15/2024 9:30 AM EDT Telemedicine Pharmacy, [facility] 132 [facility] [place] [address] [facility] 132 [facility] [place] [address] 09/29/2024 1:00 PM EDT Office Visit Family Practice [facility] 132 [facility] [place] [address] Jadiel Epstein CRNP 132 [facility] [place] [address] 10/18/2024 2:20 PM EDT Telemedicine Hepatology, [address] [place] [address] Enid Saldana , DO [address] [place], [place] [phone] 11/10/2024 12:30 PM EDT Telemedicine Psychiatry [facility] [address] [place] [address] Nhi Fritz CRNP [address] [place] [address] 12/14/2024 12:20 PM EDT Office Visit [facility] 132 [facility] [place] [address] Scott Weldon MD 132 [facility] [address] 03/13/2025 2:00 PM EDT Office Visit Nephrology, [facility] 200 [facility] [place] [address] Jonathan Mathew MD 200 [facility] [place] [address] 06/16/2025 11:40 AM EST Office Visit [facility] 132 [facility] [place] [address] Scott Weldon MD 132 [facility] [address] Scheduled Procedures Name Priority Associated Diagnoses Date/Ti [...] this encounter Medical Devices Implanted Type Area Web Ui Software Engineer Device Identifier Shelf Expiration Date Model / Serial / Lot Neurostimul Intellis Adaptiv - [id number] - [id number] Implanted:Qty: 1 on 08/22/2022 by Rafia Small MD at OR [facility] N/A: Spine Lumbar [employer] 06/21/2023 [id number] / [id number] / Description:battery Medtronic Lead Kit 60 Cm Implanted:Qty: 1 on 08/22/2022 by Rafia Small MD at OR [facility] N/A: Spine Lumbar 02/01/2026 [id number] / / [id number] Medtronic Lead Kit 60cm Implanted:Qty: 1 on 08/22/2022 by Rafia Small MD at OR [facility] N/A: Spine Lumbar 03/21/2026 [id number] / / [id number] Envelope Tyrx Med Antibacteril - [id number] Implanted:Qty: 1 on 08/22/2022 by Rafia Small MD at OR [facility] N/A: Spine Lumbar [employer] 03/10/2023 [id number] / / [id number] Hemostatic Clip Res 235cm - [id number] Implanted:Qty: 4 on 10/05/2023 by Aj Pruett DO at ENDOSCOPY [facility] [employer] : ENDOSCOPY 02/03/2026 [id number] / / Hemostatic Clip Res 235cm - [id number] Implanted:Qty: 1 on 10/05/2023 by Aj Pruett DO at ENDOSCOPY [facility] : ENDOSCOPY 02/02/2026 [id number] / / documented as of this encounter [...] PT INR (07/11/2024 10:12 AM EST) Pathologist [facility] Prothrombin Time 14.7 11.6 - 15.2 seconds 07/11/2024 12:15 PM EST [facility] 56-02 INR 1.1 0.8 - 1.2 07/11/2024 12:15 PM EST [facility] 56-02 Blood Venous blood specimen / Unknown Central Line / Unknown 07/11/2024 10:12 AM EST 07/11/2024 11:48 AM EST Narrative [facility] 56-02 - 07/11/2024 12:15 PM EST Warfarin Therapy INR: 2.0-3.0 conventional anticoagulation INR: 2.5-3.5 high intensity anticoagulation us Adam COHEN LAB BLOOD ORDERABLES Final Result [facility] [address] [place] [address] * DIFFERENTIAL, TECHNOLOGIST REVIEW (07/11/2024 10:00 AM EST) Pathologist [facility] nRBCs 07/11/2024 12:06 PM EST [facility] 56-02 Blood Venous blood specimen / Unknown Central Line / Unknown 07/11/2024 10:00 AM EST 07/11/2024 11:48 AM EST us Sunil Bourgeois MD LAB BLOOD ORDERABLES Final Res ult [facility] [address]- [address] [place], [place] [address] * (ABNORMAL) DIFFERENTIAL, AUTOMATED (07/11/2024 10:00 AM EST) Pathologist [facility] WBC 4.47 4.00 - 10.80 K/uL 07/11/2024 12:06 PM [facility] 56-02 Neutrophils % 68.8 40.0 - 75.0 % 07/11/2024 12:06 PM [facility] 56-02 Lymphocytes % 18.3 18.0 - 42.0 % 07/11/2024 12:06 PM [facility] 56-02 Monocytes % 7.4 1.0 - 11.0 % 07/11/2024 12:06 PM [facility] 56-02 Eosinophils % 5.1 0.0 - 6.0 % 07/11/2024 12:06 PM [facility] 56-02 Basophils % 0.4 0.0 - 2.0 % 07/11/2024 12:06 PM [facility] 56-02 Absolute Neutrophils 3.07 1.80 - 7.70 K/uL 07/11/2024 12:06 PM [facility] 56-02 Absolute Lymphocytes 0.82(L) 1.00 - 4.80 K/ul 07/11/2024 12:06 PM [facility] 56-02 Absolute Monocytes 0.33 0.00 - 1.10 K/uL 07/11/2024 12:06 PM [facility] 56-02 Absolute Eosinophils 0.23 0.00 - 0.70 K/uL 07/11/2024 12:06 PM [facility] 56-02 Absolute Basophils 0.02 0.00 - 0.20 K/uL 07/11/2024 12:06 PM [facility] 56-02 Blood Venous blood specimen / Unknown Central Line / Unknown 07/11/2024 10:00 AM EST 07/11/2024 11:48 AM EST Sunil Bourgeois MD LAB BLOOD ORDERABLES Final Res ult [facility] 56[facility] [address] [place], [place] [phone] * (ABNORMAL) CBC (07/11/2024 10:00 AM EST) Pathologist [facility] WBC 4.47 4.00 - 10.80 K/uL 07/11/2024 12:06 PM EST [address] RBC 4.05 3.85 - 5.15 M/uL 07/11/2024 12:[address] HGB 11.4(L) 12.0 - 15.3 g/dL 07/11/2024 12:[address] HCT 35.2(L) 36.0 - 45.2 % 07/11/2024 12:06 PM [facility] 56 MCV 86.9 81.5 - 97.5 fL 07/11/2024 12:06 PM [facility] 56 MCH 28.1 27.0 - 34.0 pg 07/11/2024 12:06 PM [facility] 56 MCHC 32.4 32.0 - 36.0 g/dL 07/11/2024 12:06 PM [facility] 56 RDW 15.5 11.5 - 15.5 % 07/11/2024 12:06 PM [facility] 56 PLT 48(L) 140 - 400 K/uL 07/11/2024 12:06 PM [facility] 56 MPV 9.9 6.6 - 11.1 fL 07/11/2024 12:06 PM [facility] 5602 Blood Venous blood specimen / Unknown Central Line / Unknown 07/11/2024 10:00 AM EST 07/11/2024 11:48 AM EST Sunil Bourgeois MD LAB BLOOD ORDERABLES Final Res ult Performing Organization Address City/[facility]/ZIP Co de Phone Number [facility] [address] [place] [address] * IRON SCREEN, INCLUDING TIBC (07/11/2024 10:00 [...] ORDERABLES Final Res ult Performing Organization Address [facility] de Phone Number [facility] [address] [place] [address] * (ABNORMAL) FERRITIN (07/11/2024 10:00 AM EST) Ferritin 306(H) 13 - 150 ng/mL 07/12/2024 1:19 AM EST [facility] Comment:Postmenopausal women have higher ferritin levels than pre-menopausal women. The above reference interval is based on pre-menopausal women. Blood Venous blood specimen / Unknown Central Line / Unknown 07/11/2024 10:00 AM EST 07/11/2024 11:48 AM EST Sunil Bourgeois MD LAB BLOOD ORDERABLES Final Res ult Performing Organization Address [facility] Co de Phone Number [facility] [address] [place] [address] documented in this encounter Visit Diagnoses Diagnosis [...] 2.2 mL of Sterile Water for Injection, RETIREMENT, into the vial, directing the diluent stream [...] Power of Attor narda? No Care Teams Astronomy Department Chair Relationship Specialty Start Date End Date Scott Weldon MD [address] [place] [address] PCP - General Family Medicine 08/03/18 documented as of this encounter
--- OUTSIDE RECORDS SUMMARY | 2024-09-10 21:17 | External Medical Summary | Summary of Care ---
Author Name Unknown Organization [facility] Address [address] [place] [facility] [place] [place] [address] Phone [phone] Care Team Providers Care Physician Scribe Name Role Phone Scott Weldon MD Primary Care Provider + Reason for Visit * Reason Onset Date Comments Advice 08/08/2024 Encounter Details Date Type Department Care Team (Late st Contact Info) Description 08/08/2024 Telephone Hematology/Oncology Treatment, [place] 200 [place] [address] Sunil Bourgeois MD 200 [place] [address] Advice Allergies Active Allergy Reactions Criticality Noted Date Comments Naproxen Sodium Bleeding High 11/29/2013 Pollen 12/03/2022 Seasonal Food (See Comments) Anaphylaxis High 04/20/2019 Hot peppers (oils) Kiwi Extract Anaphylaxis High 04/20/2019 documented as of this encounter (statuses as of 08/09/2024) Medications insulin glargine (LANTUS SOLOSTAR) 100 UNIT/ML [...] [facility]) Use as directed. 07/30/19 18 Active CPAP every night at bedtime. Active Glucagon Emergency 1 MG Injection Kit As directed 1 Kit 3 09/05/19 23 Active Naloxone HCl 4 MG/0.1ML Nasal Liquid (Narcan Nasal)Indications: Controlled substance agreement signed,Chronic pain syndrome Administer 1 spray into 1 nostril for suspected opioid overdose. Seek immediate medical attention. [email or web address] 1 Each 3 11/28/19 23 Active NovoLIN [...] MG/DOSE)) Inject under the skin. Obtaining from MiniMonos Active Atorvastatin Calcium 40 MG Oral Tablet [...] XR) Take 2 Tablets by mouth daily. Active Buprenorphine 5 MCG/HR Transdermal Patch Weekly (Butrans)Indicatio ns:Controlled substance agreement signed,Chronic bilateral low back pain with sciatica, sciatica laterality unspecified,Chroni c pain syndrome Place 1 Patch topically on the skin once a week. 4 Patch 07/27/19 25 Active documented as of this encounter (statuses as of 08/09/2024) Active Problems Problem Noted Date Diagnosed Date [...] as of this encounter (statuses as of 08/09/2024) Resolved Problems Problem Noted Date Diagnosed Date [...] Abdominal pain 01/21/2011 08/19/2012 OBESITY, BMI= 35.49 712/30/2010 08/19/2012 OBSTIPATION 12/30/2010 03/22/2013 Edema 12/30/2010 09/12/2019 [...] (09/03/2009): Per Obesity Taxonomy Coronary atherosclerosis of [place] coronary artery 09/15/2008 10/03/2008 Malaise and fatigue [...] as of this encounter (statuses as of 08/09/2024) Immunizations Name Administration Dates Next Due COVID-19 mRNA, LNP-s, No Pre serve, 2-Dose Series (Beam Express) 11/08/2020,10/11/2020 HEP A - Hepatitis A (Adult > 18 yrs) 04/11/2011, 09/20/2010 Hepatitis B, 20+ yrs 07/05/2015 Pneumococcal Conjugate Vacci ne, 20-valent ([id number]) 03/13/2023 Pneumococcal Polysaccharide PPV23 (Pneumovax) 02/19/2018,03/09/2007 Seasonal [...] Assessment Author Yes 04/20/2019 10:25 AM EST Tanize Teresa noel LPN * Do you have [...] Telephone Encounter - Jazzy Hogan OSA - 08/09/2024 10:16 AM EST The number we have been calling is the home phone. Called again via home phone no one answered and will try again later. * Telephone Encounter - Alla Casas OSA - 08/09/2024 9:46 AM EST Pt returning call to reschedule her [place]. Please advise. Do not call cell phone on fill call home phone. * Telephone Encounter - Jazzy Hogan OSA - 08/09/2024 8:17 AM EST Called unable to leave VM as it is full 2nd attempt * Telephone Encounter - Jazzy Hogan OSA - 08/08/2024 3:26 PM EST My g sent * Telephone Encounter - Amada Foote RN - 08/08/2024 3:19 PM EST Patient did not show to scheduled Venofer infusion today. Scheduling: Please reach out to patient and get her scheduled for "Venofer 11/11 (port)" for 2 hours,when patient is able to come in next. Thanks! documented in this encounter Plan of Treatment Upcoming Encounters Date Type Department Care Team (Late st Contact Info) Description 08/11/2024 12:30 PM EST Telemedicine Psychiatry [facility] [address] [place] [phone] Nhi Fritz CRNP [address] [place] [address] 08/12/2024 10:30 AM EST Office Visit Pharmacy, [place] [facility] [facility] [place] [phone] [facility] E [facility] [place] [address] 09/08/2024 8:00 AM EDT Imaging [facility] 2nd Floor Cardiology, [address] [place] [phone] 09/14/2024 2:00 PM EDT Office Visit Hematology/Oncology [facility] [address] [place], [place] [address] Sunil Bourgeois MD [address] [place] [address] 09/15/2024 9:30 AM EDT Telemedicine Pharmacy, [facility] 132 [facility] [place] [address] [facility] [place], [place] [address] 09/29/2024 1:00 PM EDT Office Visit [facility] 132 [facility] [place] [address] Jadiel Epstein CRNP [address] [place] [address] 10/18/2024 2:20 PM EDT Telemedicine Hepatology, [place] [address] [place], [place] [phone] Enid Saldana [address] [place], [place] [phone] 12/14/2024 12:20 PM EDT Office Visit [facility] 132 [facility] [place] [address] Scott Weldon MD [address] [facility] [place] [address] 03/13/2025 2:00 PM EDT Office Visit [facility]rology, [facility] [address] [place], [place] [address] Jonathan Mathew MD [address] [place] [address] 06/16/2025 11:40 AM EST Office Visit [facility] 132 [facility] [place] [address] Scott Weldon MD [address] [place] [address] Scheduled Procedures Name Priority Associated Diagnoses Date/Ti [...] this encounter Medical Devices Implanted Type Area Parts Salesman Device Identifier Shelf Expiration Date Model / Serial / Lot Neurostimul Intellis Adaptiv - [id number] - [id number] Implanted:Qty: 1 on 08/22/2022 by Rafia Small MD at OR [facility] N/A: Spine Lumbar [employer] 06/21/2023 [id number] / [id number] / Description:battery Medtronic Lead Kit 60 Cm Implanted:Qty: 1 on 08/22/2022 by Rafia Small MD at OR [facility] N/A: Spine Lumbar 02/01/2026 [id number] / / [id number] Medtronic Lead Kit 60cm Implanted:Qty: 1 on 08/22/2022 by Rafia Small MD at OR [facility] N/A: Spine Lumbar 03/21/2026 [id number] / / [id number] Envelope Tyrx Med Antibacteril - [id number] Implanted:Qty: 1 on 08/22/2022 by Rafia Small MD at OR [facility] N/A: Spine Lumbar [employer] 03/10/2023 [id number] / / [id number] Hemostatic Clip Res 235cm - [id number] Implanted:Qty: 4 on 10/05/2023 by Aj Pruett, DO at ENDOSCOPY [facility] : ENDOSCOPY 02/03/2026 [id number] / / Hemostatic Clip Res 235cm - [id number] Implanted:Qty: 1 on 10/05/2023 by Aj Pruett, DO at ENDOSCOPY [facility] : ENDOSCOPY 02/02/2026 [id number] / / documented as of this encounter [...] Power of Attor narda? No Care Teams Physician Scribe Relationship Specialty Start Date End Date Scott Weldon MD 132 [place] [address] PCP - General Family Medicine 08/03/18 documented as of this encounter
--- OUTSIDE RECORDS SUMMARY | 2024-09-10 21:17 | External Medical Summary | Summary of Care ---
Author Name Unknown Organization [facility] Address [address] [facility] [place] [address] Phone [phone] Care Team Providers Care Epic Trainer Name Role Phone Scott Weldon MD Primary Care Provider + Encounter Details Date Type Department Care Team (Late st Contact Info) Description 08/08/2024 Telephone Hematology/Oncology Treatment, [place] [address] [place] [address] Sunil Bourgeois MD 200 [place] [address] Allergies Active Allergy Reactions Criticality Noted Date [...] suspected opioid overdose. Seek immediate medical attention. [email or web address] 1 Each 3 11/28/19 23 Active NovoLIN [...] MG/DOSE)) Inject under the skin. Obtaining from [employer] Active Atorvastatin Calcium 40 MG Oral [...] (09/03/2009): Per Obesity Taxonomy Coronary atherosclerosis of los [...] yrs 07/05/2015 Pneumococcal Conjugate Vacci ne, 20-valent (Yrnlyqj65) 03/13/2023 Pneumococcal Polysaccharide PPV23 (Pneumovax) 02/19/2018,03/09/2007 Seasonal [...] No 05/17/2024 Does the household have a [facility] source of income? (Household - [...] Care Team (Late st Contact Info) Description 08/09/2024 1:00 PM EST Telemedicine [facility], [facility] 132 [facility] [place] [address] Sharon Cabello, RDN 132 [facility] [place] [address] 08/11/2024 12:30 PM EST Telemedicine Psychiatry [facility] [address] [place] [address] Nhi Fritz CRNP [address] [place] [address] 08/12/2024 10:30 AM EST Office Visit Pharmacy, [place] [facility] 226 PsychiatricDEBORAH [phone] Leobardo [address]cconnell[address] [address] 09/08/2024 8:00 AM EDT Imaging [facility] 2nd Floor Cardiology, [place] 132 [facility] [place] [address] 09/14/2024 2:00 PM EDT Office Visit Hematology/Oncology [place] [address] [place] [phone] Sunil Bourgeois MD [address] [place] [address] 09/15/2024 9:30 AM EDT Telemedicine Pharmacy, [facility] 132 [facility] [place] [address] [facility] [address] [place] [address] 09/29/2024 1:00 PM EDT Office Visit [facility] [address] [place] [address] Lucian JadielNOEL [address] [place] [address] 10/18/2024 2:20 PM EDT Telemedicine Hepatology, [place] [address] [place], [place] [phone] [facility] [address] [place], [place] [phone] 12/14/2024 12:20 PM EDT Office Visit [facility] [address] [place] [address] Scott Weldon MD 132 [facility] [address] 03/13/2025 2:00 PM EDT Office Visit Nephrology, [facility] 200 [facility] [place] [address] Jonathan Mathew MD 200 [facility] [place] [address] 06/16/2025 11:40 AM EST Office Visit [facility] [place] [address] Scott Weldon MD 132 [facility] [place] [address] Scheduled Procedures Name Priority Associated Diagnoses Date/Ti [...] this encounter Medical Devices Implanted Type Area Inside Technical Sales Representative Device Identifier Shelf Expiration Date Model / Serial / Lot Neurostimul Intellis Adaptiv - [id number] - [id number] Implanted:Qty: 1 on 08/22/2022 by Rafia Small MD at OR [facility] N/A: Spine Lumbar [employer] 06/21/2023 [id number] / [id number] / Description:battery Medtronic Lead Kit 60 Cm Implanted:Qty: 1 on 08/22/2022 by Rafia Small MD at OR [facility] N/A: Spine Lumbar 02/01/2026 [id number] / / [id number] Medtronic Lead Kit 60cm Implanted:Qty: 1 on 08/22/2022 by Rafia Small MD at OR [facility] N/A: Spine Lumbar 03/21/2026 [id number] / / [id number] Envelope Tyrx Med Antibacteril - [id number] Implanted:Qty: 1 on 08/22/2022 by Rafia Small MD at OR [facility] N/A: Spine Lumbar [employer] 03/10/2023 [id number] / / [id number] Hemostatic Clip Res 235cm - [id number] Implanted:Qty: 4 on 10/05/2023 by Aj Pruett DO at END[facility]COPY [facility] 02/03/2026 [id number] / / Hemostatic Clip Res 235cm - [id number] Implanted:Qty: 1 on 10/05/2023 by jA Pruett DO at [facility]COPY [facility] 02/02/2026 [id number] / / documented as of this encounter [...] Power of Attor narda? No Care Teams Epic Trainer Relationship Specialty Start Date End Date Scott Weldon MD 132 [facility] [place] [address] PCP - General Family Medicine 08/03/18 documented as of this encounter
--- OUTSIDE RECORDS SUMMARY | 2024-09-10 21:17 | External Medical Summary | Summary of Care ---
Author Name Unknown Organization [facility] Address [address] [facility] [place] [address] Phone [phone] Care Team Providers Care Train Braker Name Role Phone Scott Weldon MD Primary Care Provider + Reason for Visit * Reason Onset Date Comments Advice 08/08/2024 Encounter Details Date Type Department Care Team (Late st Contact Info) Description 08/08/2024 Telephone Hematology/Oncology Treatment, [place] 200 [place] [address] Sunil Bourgeois MD 200 [place] [address] Advice Allergies Active Allergy Reactions Criticality Noted [...] suspected opioid overdose. Seek immediate medical attention. [email or web address] 1 Each 3 11/28/19 23 Active NovoLIN [...] MG/DOSE)) Inject under the skin. Obtaining from [employer] Active Atorvastatin Calcium 40 MG Oral Tablet [...] Per Obesity Taxonomy Coronary atherosclerosis of [place] coronary artery 09/15/2008 [...] mRNA, LNP-s, No Pre serve, 2-Dose Series (Cloudability) 11/08/2020,10/11/2020 HEP A - Hepatitis A (Adult > 18 yrs) 04/11/2011, 09/20/2010 Hepatitis B, 20+ yrs 07/05/2015 Pneumococcal Conjugate Vacci ne, 20-valent (Nevkrnt35) 03/13/2023 Pneumococcal Polysaccharide PPV23 (Pneumovax) 02/19/2018,03/09/2007 Seasonal [...] Author No 04/20/2019 10:25 AM EST Teresa Moroe LPN * Because of a physical, mental, [...] Description 08/11/2024 12:30 PM EST Telemedicine Psychiatry [facility] 68 [place] [phone] Nhi Fritz CRNP 68 [place] [address] 08/12/2024 10:30 AM EST Office Visit Pharmacy, [place] [facility] [place] [phone] Jayesh [facility] E [facility] [place] [address] 09/08/2024 8:00 AM EDT Imaging [facility] 2nd Floor Cardiology, [address] [place] [phone] 09/14/2024 2:00 PM EDT Office Visit Hematology/Oncology [facility] [address] [place], [place] [address] Sunil Bourgeois MD [address] [place] [address] 09/15/2024 9:30 AM EDT Telemedicine Pharmacy, [facility] 132 [facility] [place] [address] [facility] [place], [place] [address] 09/29/2024 1:00 PM EDT Office Visit [facility] 132 [facility] [place] [address] Jadiel Epstein CRNP [address] [place] [address] 10/18/2024 2:20 PM EDT Telemedicine Hepatology, [place] [address] [place], [place] [phone] Enid Saldana [address] [place], [place] [address] 12/14/2024 12:20 PM EDT Office Visit [facility] 132 [facility] [place] [address] Scott Weldon MD [address] [place] [address] 03/13/2025 2:00 PM EDT Office [facility], [facility] [address] [place], [place] [address] Jonathan Mathew MD [address] [place] [address] 06/16/2025 11:40 AM EST Office Visit [facility] 132 [facility] [place] [address] Scott Weldon MD [address] [place] [address] Scheduled Procedures Name Priority Associated Diagnoses Date/Ti [...] this encounter Medical Devices Implanted Type Area Aerial Hurricane Hunter Device Identifier Shelf Expiration Date Model / Serial / Lot Neurostimul Intellis Adaptiv - [id number] - [id number] Implanted:Qty: 1 on 08/22/2022 by Rafia Small MD at OR [facility] N/A: Spine Lumbar [employer] 06/21/2023 [id number] / [id number] / Description:battery Medtronic Lead Kit 60 Cm Implanted:Qty: 1 on 08/22/2022 by Rafia Small MD at OR [facility] N/A: Spine Lumbar 02/01/2026 [id number] / / [id number] Medtronic Lead Kit 60cm Implanted:Qty: 1 on 08/22/2022 by Rafia Small MD at OR [facility] N/A: Spine Lumbar 03/21/2026 [id number] / / [id number] Envelope Tyrx Med Antibacteril - [id number] Implanted:Qty: 1 on 08/22/2022 by Rafia Small MD at OR [facility] N/A: Spine Lumbar [employer] 03/10/2023 [id number] / / [id number] Hemostatic Clip Res 235cm - [id number] Implanted:Qty: 4 on 10/05/2023 by Aj Pruett, DO at ENDOSCOPY [facility] ENDOSCOPY 02/03/2026 [id number] / / Hemostatic Clip Res 235cm - [id number] Implanted:Qty: 1 on 10/05/2023 by Aj Pruett, DO at ENDOSCOPY [facility] ENDOSCOPY 02/02/2026 [id number] / / documented as of this encounter [...] Power of Attor narda? No Care Teams Train Braker Relationship Specialty Start Date End Date Scott Weldon MD 132 [place] [address] PCP - General Family Medicine 08/03/18 documented as of this encounter
--- OUTSIDE RECORDS SUMMARY | 2024-09-10 21:17 | External Medical Summary | Summary of Care ---
Author Name Unknown Organization [facility] Address [address] [place] [address] Phone [phone] Care Team Providers Care Resource Analyst Name Role Phone Scott Weldon MD Primary Care Provider + Encounter Details Date Type Department Care Team (Late st Contact Info) Description 08/08/2024 Telephone Hematology/Oncology Treatment, [place] 200 [place] [address] Sunil Bourgeois MD 200 [place] [address] Allergies Active Allergy Reactions Criticality Noted Date Comments Naproxen Sodium Bleeding High 11/29/2013 Pollen 12/03/2022 Seasonal Food (See Comments) Anaphylaxis High 04/20/2019 Hot peppers (oils) Kiwi Extract Anaphylaxis High 04/20/2019 documented as of this encounter (statuses as of 08/08/2024) Medications insulin glargine (LANTUS SOLOSTAR) 100 UNIT/ML [...] suspected opioid overdose. Seek immediate medical attention. [email or web address] 1 Each 3 11/28/19 23 Active NovoLIN [...] MG/DOSE)) Inject under the skin. Obtaining from [employer] Active Atorvastatin Calcium 40 MG Oral Tablet [...] as of this encounter (statuses as of 08/08/2024) Active Problems Problem Noted Date Diagnosed Date [...] as of this encounter (statuses as of 08/08/2024) Resolved Problems Problem Noted Date Diagnosed Date [...] (09/03/2009): Per Obesity Taxonomy Coronary atherosclerosis of [place] coronary artery 09/15/2008 10/03/2008 Malaise and fatigue [...] as of this encounter (statuses as of 08/08/2024) Immunizations Name Administration Dates Next Due COVID-19 mRNA, LNP-s, No Pre serve, 2-Dose Series (Pfizer) 11/08/2020,10/11/2020 HEP A - Hepatitis A (Adult > 18 yrs) 04/11/2011, 09/20/2010 Hepatitis B, 20+ yrs 07/05/2015 Pneumococcal Conjugate Vacci ne, 20-valent (Zjrlndv66) 03/13/2023 Pneumococcal Polysaccharide PPV23 (Pneumovax) 02/19/2018,03/09/2007 Seasonal [...] No 05/17/2024 Does the household have a [facility] source of income? (Household - for ages [...] Description 08/09/2024 1:00 PM EST Telemedicine Nutrition, [facility] 132 [facility] [place] [address] Sharon Cabello, GROVERN [address] [place] [address] 08/11/2024 12:30 PM EST Telemedicine Psychiatry [facility] 68 [place] [address] Nhi Fritz, NOEL 68 [place] [address] 08/12/2024 10:30 AM EST Office Visit Pharmacy, [facility] 226 [facility] [phone] [address] [address] 09/08/2024 8:00 AM EDT Imaging [facility] 2nd Floor Cardiology, [place] 132 [facility] [place] [phone] 09/14/2024 2:00 PM EDT Office [facility] [address] [place] [phone] Sunil Bourgeois MD [address] [facility] [place] [address] 09/15/2024 9:30 AM EDT Telemedicine Pharmacy, [facility] 132 [facility] [place] [address] [facility] 132 [facility] [place] [address] 09/29/2024 1:00 PM EDT Office Visit Family [facility] 132 [facility] [place] [address] Jadiel Epstein CRNP [address] [place] [address] 10/18/2024 2:20 PM EDT Telemedicine Hepatology, [place] [address] [place], [place] [phone] Les Enidjose Becerril DO [address] [place], [place] [phone] 12/14/2024 12:20 PM EDT Office Visit [facility] 132 [place] [address] Scott Weldon MD 132 [place] [address] 03/13/2025 2:00 PM EDT Office Visit Nephrology, [facility] [address] [facility] [place] [address] Jonathan Mathew MD [address] [facility] [place] [place] [address] 06/16/2025 11:40 AM EST Office Visit [facility] 132 [facility] [place] [address] Scott Weldon MD 132 [facility] [place] [address] Scheduled Procedures Name Priority Associated Diagnoses Date/Ti [...] this encounter Medical Devices Implanted Type Area Header Boss Device Identifier Shelf Expiration Date Model / Serial / Lot Neurostimul Intellis Adaptiv - [id number] - [id number] Implanted:Qty: 1 on 08/22/2022 by Rafia Small MD at OR [facility] N/A: Spine Lumbar [employer] 06/21/2023 [id number] / [id number] / Description:battery Medtronic Lead Kit 60 Cm Implanted:Qty: 1 on 08/22/2022 by Rafia Small MD at OR [facility] N/A: Spine Lumbar 02/01/2026 [id number] / / [id number] Medtronic Lead Kit 60cm Implanted:Qty: 1 on 08/22/2022 by Rafia Small MD at OR [facility] N/A: Spine Lumbar 03/21/2026 [id number] / / [id number] Envelope Tyrx Med Antibacteril - [id number] Implanted:Qty: 1 on 08/22/2022 by Rafia Small MD at OR [facility] N/A: Spine Lumbar [employer] 03/10/2023 [id number] / / [id number] Hemostatic Clip Res 235cm - [id number] Implanted:Qty: 4 on 10/05/2023 by Aj Pruett DO at ENDOSCOPY [facility] ENDOSCOPY 02/03/2026 [id number] / / Hemostatic Clip Res 235cm - [id number] Implanted:Qty: 1 on 10/05/2023 by Aj Pruett DO at ENDOSCOPY [facility] ENDOSCOPY 02/02/2026 [id number] / / documented as of this encounter [...] Power of Attor narda? No Care Teams Resource Analyst Relationship Specialty Start Date End Date Scott Weldon MD [address] [place] [address] PCP - General Family Medicine 08/03/18 documented as of this encounter
--- OUTSIDE RECORDS SUMMARY | 2024-09-10 21:17 | External Medical Summary | Summary of Care ---
Author Name Unknown Organization [facility] Address [address] [place] [address] Phone [phone] Care Team Providers Care Senior Wind Turbine Technician Name Role Phone Scott Weldon MD Primary Care Provider + Reason for Visit * Reason Onset Date Comments Advice 08/08/2024 Encounter Details Date Type Department Care Team (Late st Contact Info) Description 08/08/2024 Telephone Hematology/Oncology Treatment, [place] [address] [place] [address] Sunil Bourgeois MD [address] [place] [address] Advice Allergies Active Allergy Reactions Criticality Noted Date Comments Naproxen Sodium Bleeding High 11/29/2013 Pollen 12/03/2022 Seasonal Food (See Comments) Anaphylaxis High 04/20/2019 Hot peppers (oils) Kiwi Extract Anaphylaxis High 04/20/2019 documented as of this encounter (statuses as of 08/10/2024) Medications insulin glargine (LANTUS SOLOSTAR) 100 UNIT/ML [...] ([facility]) Use as directed. 07/30/19 18 Active CPAP every night at bedtime. Active Glucagon Emergency 1 MG Injection Kit As directed 1 Kit 3 09/05/19 23 Active Naloxone HCl 4 MG/0.1ML Nasal Liquid (Narcan Nasal)Indications: Controlled substance agreement signed,Chronic pain syndrome Administer 1 spray into 1 nostril for suspected opioid overdose. Seek immediate medical attention. [email or web address]://[email or web address]?[email or web address] 1 Each 3 11/28/19 23 Active NovoLIN [...] MG/DOSE)) Inject under the skin. Obtaining from [employer] Active Atorvastatin Calcium 40 MG Oral Tablet [...] as of this encounter (statuses as of 08/10/2024) Active Problems Problem Noted Date Diagnosed Date [...] as of this encounter (statuses as of 08/10/2024) Resolved Problems Problem Noted Date Diagnosed Date [...] (09/03/2009): Per Obesity Taxonomy Coronary atherosclerosis of tlingit & ha[place] coronary artery 09/15/2008 10/03/2008 Malaise and fatigue [...] as of this encounter (statuses as of 08/10/2024) Immunizations Name Administration Dates Next Due COVID-19 mRNA, LNP-s, No Pre serve, 2-Dose Series ([employer]) 11/08/2020,10/11/2020 HEP A - Hepatitis A (Adult > 18 yrs) 04/11/2011, 09/20/2010 Hepatitis B, 20+ yrs 07/05/2015 Pneumococcal Conjugate Vacci ne, 20-valent ([id number]) 03/13/2023 Pneumococcal Polysaccharide PPV23 (Pneumovax) 02/19/2018,03/09/2007 Seasonal [...] Telephone Encounter - Jazzy Hogan OSA - 08/10/2024 8:58 AM EST Pt Is scheduled and is aware * Telephone Encounter - Jazzy Hogan OSA [...] Description 08/11/2024 12:30 PM EST Telemedicine Psychiatry [facility] [phone] Nhi Fritz [facility] [phone] 08/12/2024 10:30 AM EST Office Visit [facility], [address] [place] [phone] Jayesh [place] [phone] [facility] [place] [place] [id number] 08/16/2024 2:30 PM EDT Hem/Onc Treatment Hematology/Oncology Treatment, [place] [address] [place] [phone] Nora, Chair [address] Hem [address] [place] [address] 09/08/2024 8:00 AM EDT Imaging [facility] 2nd Floor Cardiology, [place] [address] [facility] [place] [phone] 09/14/2024 2:00 PM EDT Office Visit Hematology/Oncology [facility] [place] [address] [place] [phone] Sunil Bourgeois MD [address] [place] [address] 09/15/2024 9:30 AM EDT Telemedicine Pharmacy, [facility] 132 [facility] [place] [address] [facility] 132 [facility] [place] [address] 09/29/2024 1:00 PM EDT Office Visit [facility] [address] [facility] [place] [address] Jadiel Epstein CRNP [address] [facility] [place] [address] 10/18/2024 2:20 PM EDT Telemedicine Hepatology, [place] [address] [place] [address] Enid Saldana DO [address] [facility] [place] [address] 12/14/2024 12:20 PM EDT Office Visit [facility] [address] [facility] [place] [address] Scott Weldon MD [address] [place] [address] 03/13/2025 2:00 PM EDT Office Visit Nephrology, [place] 200 [facility] [place] [address] Jonathan Mathew MD 200 [facility] [place] [address] 06/16/2025 11:40 AM EST Office Visit Family Practice [facility] [address] [place] [address] Scott Weldon MD [address] [place] [address] Scheduled Procedures Name Priority Associated Diagnoses Date/Ti [...] encounter Medical Devices Implanted Type Area Java Technical Architect Device Identifier Shelf Expiration Date Model / Serial / Lot Neurostimul Intellis Adaptiv - [id number] - [id number] Implanted:Qty: 1 on 08/22/2022 by Rafia Small MD at OR [facility] N/A: Spine Lumbar [employer] 06/21/2023 [id number] / [id number] / Description:battery Medtronic Lead Kit 60 Cm Implanted:Qty: 1 on 08/22/2022 by Rafia Small MD at OR [facility] N/A: Spine Lumbar 02/01/2026 [id number] / / [id number] Medtronic Lead Kit 60cm Implanted:Qty: 1 on 08/22/2022 by Rafia Small MD at OR [facility] N/A: Spine Lumbar 03/21/2026 [id number] / / [id number] Envelope Tyrx Med Antibacteril - [id number] Implanted:Qty: 1 on 08/22/2022 by Rafia Small MD at OR [facility] N/A: Spine Lumbar [employer] 03/10/2023 [id number] / / [id number] Hemostatic Clip Res 235cm - [id number] Implanted:Qty: 4 on 10/05/2023 by Aj Pruett DO at [facility] : ENDOSCOPY 02/03/2026 [id number] / / Hemostatic Clip Res 235cm - [id number] Implanted:Qty: 1 on 10/05/2023 by Aj Pruett DO at [facility] : ENDOSCOPY 02/02/2026 [id number] / / documented as of this encounter [...] Power of Attor narda? No Care Teams Senior Wind Turbine Technician Relationship Specialty Start Date End Date Scott Weldon MD [address] [facility] [place] [address] PCP - General Family Medicine 08/03/18 documented as of this encounter
--- OUTSIDE RECORDS SUMMARY | 2024-09-10 21:17 | External Medical Summary | Summary of Care ---
Author Name Unknown Organization [facility] Address [address] [place] [address] Phone [phone] Care Team Providers Care Demurrage Man Name Role Phone Scott Weldon MD Primary Care Provider + Reason for Visit * Reason Onset Date Comments Advice 08/08/2024 Encounter Details Date Type Department Care Team (Late st Contact Info) Description 08/08/2024 Telephone Hematology/Oncology Treatment, [place] [address] [place] [address] Sunil Bourgeois MD 200 [place] [address] Advice Allergies Active Allergy Reactions Criticality Noted [...] ([facility]) Use as directed. 07/30/19 18 Active CPAP every night at bedtime. Active Glucagon Emergency 1 MG Injection Kit As directed 1 Kit 3 09/05/19 23 Active Naloxone HCl 4 MG/0.1ML Nasal Liquid (Narcan Nasal)Indications: Controlled substance agreement signed,Chronic pain syndrome Administer 1 spray into 1 nostril for suspected opioid overdose. Seek immediate medical attention. [email or web address]://[email or web address]/[email or web address]?v=[email or web address] 1 Each 3 11/28/19 23 Active NovoLIN [...] MG/DOSE)) Inject under the skin. Obtaining from [employer] Active Atorvastatin Calcium 40 MG Oral Tablet [...] (09/03/2009): Per Obesity Taxonomy Coronary atherosclerosis of unga coronary artery 09/15/2008 10/03/2008 Malaise and fatigue [...] mRNA, LNP-s, No Pre serve, 2-Dose Series ([email or web address]) 11/08/2020,10/11/2020 HEP A - Hepatitis A (Adult > 18 yrs) 04/11/2011, 09/20/2010 Hepatitis B, 20+ yrs 07/05/2015 Pneumococcal Conjugate Vacci ne, 20-valent ([id number]) 03/13/2023 Pneumococcal Polysaccharide PPV23 (Pneumovax) 02/19/2018,03/09/2007 Seasonal [...] 08/11/2024 12:30 PM EST Telemedicine Psychiatry [facility] [address] [place] [phone] Nhi Fritz CRNP [address] [place] [phone] 08/12/2024 10:30 AM EST Office Visit Pharmacy, [place] [address] [facility] [place] [phone] Jayesh [facility] [place] [address] 09/08/2024 8:00 AM EDT Imaging [facility] 2nd Floor Cardiology, [address] [place] [phone] 09/14/2024 2:00 PM EDT Office Visit Hematology[facility]On[facility] [address] [place], [place] [address] Sunil Bourgeois MD [address] [place] [address] 09/15/2024 9:30 AM EDT Telemedicine Pharmacy, [facility] 132 [facility] [place] [address] [facility] [place] [place] [address] 09/29/2024 1:00 PM EDT Office Visit [facility] 132 [facility] [place] [address] Jadiel Epstein CRNP [address] [place] [address] 10/18/2024 2:20 PM EDT Telemedicine Hepatology, [place] [address] [place], [place] [phone] Enid Saldana [address] [place], [place] [phone] 12/14/2024 12:20 PM EDT Office Visit [facility] [address] [facility] [place] [address] Scott Weldon MD [address] [facility] [place] [address] 03/13/2025 2:00 PM EDT Office Visit [facility]phrology, [facility] [address] [place], [place] [address] Jonathan Mathew MD [address] [place] [address] 06/16/2025 11:40 AM EST Office Visit [facility] 132 [facility] [place] [address] Scott Weldon MD [address] [place] [address] Scheduled Procedures Name Priority Associated Diagnoses Date/Ti [...] this encounter Medical Devices Implanted Type Area Acoustical Tile Carpenters Supervisor Device Identifier Shelf Expiration Date Model / Serial / Lot Neurostimul Intellis Adaptiv - [id number] - [id number] Implanted:Qty: 1 on 08/22/2022 by Rafia Small MD at OR [facility] N/A: Spine Lumbar [employer] 06/21/2023 [id number] / [id number] / Description:battery Medtronic Lead Kit 60 Cm Implanted:Qty: 1 on 08/22/2022 by Rafia Small MD at OR [facility] N/A: Spine Lumbar 02/01/2026 [id number] / / [id number] Medtronic Lead Kit 60cm Implanted:Qty: 1 on 08/22/2022 by Rafia Small MD at OR [facility] N/A: Spine Lumbar 03/21/2026 [id number] / / [id number] Envelope Tyrx Med Antibacteril - [id number] Implanted:Qty: 1 on 08/22/2022 by Rafia Small MD at OR [facility] N/A: Spine Lumbar [employer] 03/10/2023 [id number] / / [id number] Hemostatic Clip Res 235cm - [id number] Implanted:Qty: 4 on 10/05/2023 by Aj Pruett, DO at ENDOSCOPY [facility] : ENDOSCOPY 02/03/2026 [id number] / / Hemostatic Clip Res 235cm - [id number] Implanted:Qty: 1 on 10/05/2023 by Aj Pruett, DO at ENDOSCOPY [facility] : ENDOSCOPY 02/02/2026 [id number] / / documented as of this encounter [...] Power of Attor narda? No Care Teams Demurrage Man Relationship Specialty Start Date End Date Scott Weldon MD [address] [place] [address] PCP - General Family Medicine 08/03/18 documented as of this encounter
--- OUTSIDE RECORDS SUMMARY | 2024-09-10 21:17 | External Medical Summary | Summary of Care ---
Author Name Unknown Organization [facility] Address [address] [place] [address] Phone [phone] Care Team Providers Care Cardiology Teacher Name Role Phone Scott Weldon MD Primary Care Provider + Reason for Visit * Reason Comments Follow Up Encounter Details Date Type Department Care Team ([facility] st Contact Info) Description 08/11/2024 12:30 PM EST Telemedicine Psychiatry [facility] [address] [place] [address] Nhi Fritz CRNP [address] [place] [address] MICHELLE (generalized anxiety disorder)*; PTSD (post-traumatic stress disorder); Seasonal affective disorder (HCC) Allergies Active Allergy Reactions Criticality Noted [...] 5 02/18/20 17 Active Insulin Infusion Pump (MINIMData Driven Delivery System 630G INSULIN PUMP) KITIndications:Ty pe 2 diabetes [...] suspected opioid overdose. Seek immediate medical attention. [email or web address]?[email or web address] 1 Each 3 11/28/19 23 Active NovoLIN [...] MG/DOSE)) Inject under the skin. Obtaining from [employer] Active Atorvastatin Calcium 40 MG Oral Tablet [...] (09/03/2009): Per Obesity Taxonomy Coronary atherosclerosis of kiana coronary artery 09/15/2008 10/03/2008 Malaise and fatigue [...] yrs 07/05/2015 Pneumococcal Conjugate Vacci ne, 20-valent ([id number]) 03/13/2023 Pneumococcal Polysaccharide PPV23 (Pneumovax) 02/19/2018,03/09/2007 Seasonal [...] documented in this encounter Progress Notes * Nhi Fritz CRNP - 08/11/2024 12:30 PM EST OUTPATIENT PSYCHIATRY RETURN VISIT DIVISION OF PSYCHIATRY [address] [address] Name: Carmen Tyson : 1970 Date and Time Patient was Seen: 08/11/2024 at 12:33 PM Patient location: HOME. I was not in a hospital or clinic location. After connecting through televideo, patient was verified with two unique identifiers. Patient (or authorized legal customer support representative) was then informed that this was a Telemedicine visit and being conducted confidentially over secure lines. Methods to assure confidentiality were taken. Patient acknowledged consent and understanding of privacy and security of the Telemedicine visit. The patient agreed to participate. Start Time:12:33PM Stop Time: Total direct [id number] time: Physical Location of patient: home CC: f/u INITIAL History of Present Illness: Carmen Tyson is [...] "I suppressed it". She reported h/o taking Hodgen("Iwas afraid of it because of blood work"), [...] She takes them and denied any s/e. PRIOR INTERVAL HISTORY: Pt sent a message that she wants lunesta sent to [facility] and that she has insurance issues. It was sentto [facility] and a message was sent to her that maybe insurance doesn't cover it any more. During this encounter , she informed this data analyst report writer that she changed insurance and have issues with getting some of her other meds. Pt said lunesta works so wants to continue it. She doesn't want to try any other sleep aid. She also takes trazodone 200mg hs which alone doesn't manage her sleep.Have tried trazodone 400mg in the past w/o benefit prior to starting care with this data analyst report writer. Been taking lunesta for 2 years. Have tried restoril in the past w/o benefit. Other meds that she has tried are : Hodgen("I was afraid of it because of blood work"), wellbutirn("I didn't like it, it made anxiety worse") , xanax, duloxetine, zoloft, gabapentin(h/o psuedo sz ), ativan (while IP), seroquel, effexor, depakote, and celexa. Pt have tried so many meds, and been feeling relatively stable on this current med combo that there is high risk of decompensation if meds are changed due to insurance issues. She has enough un til Thursday. Discussed options and pt prefers prior auth be completed for her to continue lunesta. Pt reports good adherence with medication and denies side effects. Pt denies SI. No manic symptoms, psychotic symptoms, AH, VH or HI elicited. Anxiety and depression are at baseline. She denied any PTSD symptoms. No red flag per pdmp CURRENT INTERVAL HISTORY When asked how she is doing, pt said , 'it is starting to become a little better. The weather is getting better, being outside helps. I am ready for summer". She reported that during winter period, her symptoms tends to slightly increase. She said it occurred this winter period and since the weather starts to improve, she noticed her symptoms improved. She said that when the weather is nice, [place] so looking forward to doing that. Discussed ways to manage seasonal affective d/o, using therapy, increasing her antidepressant and engaging in behavioral activation. Informed her that before the weather changes towards January/February, we can add 10mg lexapro, and she should start therapy. Pt agreed to discuss further during November appointment. She showed this provider about 3 wounds on her lower quadrant of her abd. Informed her the need to call her pcp and schedule to be seen jamey because pt is diabetic. The wound bed is red. She stated that sometimes her under wear gots stuck on it and was told to put the under wear under it not over it and need to air it. Pt agreed to call her pcp. Pt reports good adherence with medication and denies side effects. Pt denies SI. No manic symptoms, psychotic symptoms, AH, VH or HI elicited. Anxiety and depression are at baseline. She denied any PTSD symptoms. [place]-SUICIDE SEVERITY RATING SCALE Frequent Screener Ask questions that are bold and underlined Since Last Contact (Clarence with an X) YES NO Have you actually had thoughts about killing yourself? x If YES, ask the following questions. If NO, go directly to the last question Have you been thinking about how you might do this? Have you had these thoughts and had some intention of acting on them? E.g. “I thought about taking an overdose, but I never made a specific plan as to when where or how I would actually do it….and I would never go through with it.” Have you started to work out or worked out the details of how to kill yourself? Do you intend to carry out this plan? As opposed to “I have the thoughts, but I definitely will not do anything about them.” Have you done anything, started to do anything, or prepared to do anything to end your life? Examples: Collected pills, obtained a gun, gave away valuables, wrote a will or suicide note, took out pills but didn't swallow any, held a gun but changed your mind or it was grabbed from your hand,went to the roof but didn't jump; or actually took pills, tried to shoot yourself, cut yourself, tried to hang yourself, etc. x Low Risk Complete or review crisis plan with patient Discuss risk/protective factors and reasons for living Moderate Risk Complete or review crisis plan with patient Discuss risk/protective factors and reasons for living Discuss removal of means High Risk Maintain 1 to 1 monitoring until assessment is completed Evaluate for higher level of care (Inpatient or PHP) Consultation with Emergency Services as appropriate If patient not admitted: Complete or review crisis plan with patient Discuss risk/protective factors and reasons for living Advise removal of means Consider family or collateral contact to promote safety Schedule follow up care consistent with assessment ALLERGIES Review of patient's allergies indicates: Allergen Reactions Aleve [Naproxen Sodium] Bleeding Food (See Comments) Anaphylaxis Hot peppers (oils) Kiwi Extract Anaphylaxis Environmental [Pollen] Seasonal CURRENT MEDICATIONS: Current Outpatient Medications Medication Sig Dispense Refill [...] for suspectedopioid overdose. Seek immediate medical attention. https://www.[email or web address].com/watch?v=[email or web address] 1 Each 3 NovoLIN R ReliOn 100 [...] MG/DOSE)) Inject under the skin. Obtaining from [employer] (Patient not taking: Reported on 07/12/2024) Atorvastatin Calcium 40 MG Oral Tablet (Lipitor) [...] XR) Take 2 Tablets by mouth daily. Buprenorphine 5 MCG/HR Transdermal Patch Weekly (Butrans) Place 1 Patch topically on the skin once a week. 4 Patch 0 No current facility-administered medications for this visit. RECENT LABS/IMAGING: No results found for this or any previous visit (from the past 4 weeks). VITALS There were no vitals filed for this visit. Wt Readings from Last 3 Encounters: 05/18/24 104.8 kg (231 lb) 05/10/24 104.8 kg (231 lb) 03/25/24 105.2 kg (232 lb) There is no height or weight on file to calculate BMI. CURRENT MEDICATIONS: Current Outpatient Medications Medication Sig Dispense Refill [...] for suspectedopioid overdose. Seek immediate medical attention. https://www.youtube.com/watch?v=[email or web address] 1 Each 3 NovoLIN R ReliOn 100 [...] MG/DOSE)) Inject under the skin. Obtaining from [employer] (Patient not taking: Reported on 07/12/2024) Atorvastatin Calcium 40 MG Oral Tablet (Lipitor) [...] XR) Take 2 Tablets by mouth daily. Buprenorphine 5 MCG/HR Transdermal Patch Weekly (Butrans) Place 1 Patch topically on the skin once a week. 4 Patch 0 No current facility-administered medications for this visit. FAMILY HISTORY: Family History Problem Relation Name Age of [...] (Maternal) Gastro-intestinal disorder Grandmother (Paternal) Liver disease PAST MEDICAL HISTORY: Past Medical History: Diagnosis Date Abdominal pain, [...] 8.0% ([facility]) 06/22/2014 SUMMARY OF/CHANGES TO PAST PSYCHIATRIC, MEDICAL, FAMILY, OR SOCIAL HISTORY: See interval history MEDICAL REVIEW OF SYSTEMS: Constitutional: (-) fever chills sweats or weight loss Eyes: (-) negative, no amaurosis fugax, pain, blurred vision, or redness Cardiovascular: (-) negative: no chest pain, dyspnea, syncope, or palpitations Pulmonary: (-) negative: no cough, wheezing, or shortness of breath Abdominal/GI: (-) negative: no pain, heartburn, dysphagia, bleeding, change in bowel habits, nauseaor vomiting Musculoskeletal: (+) uses cane to ambulate, h/o stroke , pt has about 3 open areas on the lower quadrants of her abd Endocrine: (-) negative: no weight change, heat or cold intolerance, polyuria Skin: (-) negative: no rash or new or changing moles Neurology: (-) negative: no focal neurologic defect MENTAL STATUS EVALUATION: Appearance: age-appropriate Muscle strength and tone: no abnormal involuntary movements noticeable Gait and Station: not assessed, patient seen via teleconference Behavior: appropriate within the milieu Speech: normal, rate, tone and volume Mood: "am ok " Affect: type - euthymic; range - full range; lability - no Associations: intact Thought Process: goal directed Abstract Reasoning: intact Thought Content: denies suicidal ideations, homicidal ideations, auditory hallucinations, visual hallucinations, delusions, impulsivity to act out or preoccupation with violence Orientation: alert and oriented to person, place, time and situation Attention span/concentration as evidenced by: ability to sustain attention to examiner - intact Insight: age appropriate Judgment: age appropriate Labs/Outcomes 05/17/2024 13:25 Labs/Outcomes PHQ Score 1 PHQ Score Description No Depression ASSESSMENT AND PLAN: PTSD, MICHELLE and seasonal affective d/c, h/o MDD Plan: Medications: continue Lexapro 20 daily, hydroxyzine: 25mg TID PRN-take up to thee times a day, Trazodone 200 mg QHS, Lunesta 2 mg QHS and on lyrica and buprenorphine patch for pain, plan to discuss adding lexapro 10mg daily , add therapy and start indoor activities Therapy: declined need for therapy, finds it hard to open up to people, will continue to encourage,plans to start therapy later in the year Community Resources: n/a Lab tests/Medical: none ordered Safety: no safety concern, in case of emergency, call 911 or go to the nearest ER or CRC Return in: 12 weeks and earlier as needed Continue to f/u with pcp regularly Treatment options and alternatives reviewed with patient who agrees with the above plan. Information about current medications was provided to the patient including reasons why medications are being used. Patient understood the risks, benefits, side-effects, and potential complications associated with changes in medications being proposed (both medications being started, and medications being discontinued or having dose changed). Patient is making an informed medical decision to follow the recommendations outlined in this note. Directed pt to call with any questions or concerns, worsening symptoms and/or ask for earlier appointment. Greater than 50% of the time was spent counseling or coordinating the care of the patient Risk assessment was performed. This is a patient being treated for chronic mental health conditionsand/or substance use disorder as characterized above; at the time of this visit, there was no indication that this patient was either a risk to self, others, or gravely disabled by symptoms of a mental illness or substance use disorder. At the time of this evaluation, pt did not appear to be an acute risk to self or others, there were enough protective factors in place, and it was deemed safe andappropriate to continue with treatment on an outpatient basis with return to clinic in the timeframe described above. We reviewed previous crisis plan should he/she experience worsening of symptoms before next follow-up appointment, including being aware of what resources to use according to the urgency and severityof symptoms. Carmen Tyson was able to verbalize understanding of the steps necessary to obtain help between appointments should be needed, from requesting a phone call, to requesting an appointment sooner, including reaching clinic after hours, accessing our system, and accessing emergency mental health and medical services, either at a local emergency department or by activating mobile crisis teams and EMS. NOEL Vallada[facility] 08/11/2024 documented in this encounter Plan of Treatment Upcoming Encounters Date Type Department Care Team (Late st Contact Info) Description 08/12/2024 10:30 AM EST Office Visit Pharmacy, [facility]esh [facility] [address] [facility] [address] [place] [phone] [facility] [address] [facility] [place] [address] 08/16/2024 2:30 PM EDT Hem/Onc Treatment Hematology/Oncology Treatment, [place] [address] [place] [phone] Nora, Chair [address] [place] [address] 09/08/2024 8:00 AM EDT Imaging [facility] 2nd Floor Cardiology, [place] [address] [place] [phone] 09/14/2024 2:00 PM EDT Office Visit Hematology/Oncology [facility] [place] [address] [place] [phone] Sunil Bourgeois MD [address] [place] [address] 09/15/2024 9:30 AM EDT Telemedicine Pharmacy[facility] [address] [place] [address] [facility] [address] [place] [address] 09/29/2024 1:00 PM EDT Office Visit Family [facility] [address] [place] [address] Jadiel Epstein CRNP [address] [place] [address] 10/18/2024 2:20 PM EDT Telemedicine Hepatology, [place] [address], [place] [phone] Enid Saldana, DO [address], [place] [id number] 11/10/2024 12:30 PM EDT Telemedicine Psychiatry [facility] [address] [place] [address] Nhi Fritz CRNP [address] [place] [address] 12/14/2024 12:20 PM EDT Office Visit [facility] [address] [facility] [place] [address] Scott Weldon MD [address] [facility] [place] [address] 03/13/2025 2:00 PM EDT Office Visit Nephrology, [facility] [address] [place] [address] Jonathan Mathew MD [address] [place] [address] 06/16/2025 11:40 AM EST Office Visit [facility] [address] [place] [address] Scott Weldon MD [address] [facility] [address] Scheduled Procedures Name Priority Associated Diagnoses Date/Ti [...] encounter Medical Devices Implanted Type Area Engineering Psychologist Device Identifier Shelf Expiration Date Model / Serial / Lot Neurostimul Intellis Adaptiv - [id number] - [id number] Implanted:Qty: 1 on 08/22/2022 by Rafia Small MD at OR [facility] N/A: Spine Lumbar [employer] 06/21/2023 [id number] / [id number] / Description:battery Medtronic Lead Kit 60 Cm Implanted:Qty: 1 on 08/22/2022 by Rafia Small MD at OR [facility] N/A: Spine Lumbar 02/01/2026 [id number] / / [id number] Medtronic Lead Kit 60cm Implanted:Qty: 1 on 08/22/2022 by Rafia Small MD at OR [facility] N/A: Spine Lumbar 03/21/2026 [id number] / / [id number] Envelope Tyrx Med Antibacteril - [id number] Implanted:Qty: 1 on 08/22/2022 by Rafia Small MD at OR [facility] N/A: Spine Lumbar [employer] 03/10/2023 [id number] / / [id number] Hemostatic Clip Res 235cm - [id number] Implanted:Qty: 4 on 10/05/2023 by jA Pruett DO at ENDOSCOPY [facility] [employer] [facility] ENDOSCOPY 02/03/2026 [id number] / / Hemostatic Clip Res 235cm - [id number] Implanted:Qty: 1 on 10/05/2023 by Aj Pruett DO at ENDOSCOPY [facility] [employer] : ENDOSCOPY 02/02/2026 [id number] / / documented as of this encounter Visit Diagnoses Diagnosis MICHELLE (generalized anxiety disorder)- Primary Generalized anxiety disorder PTSD (post-traumatic stress disorder) Posttraumatic stress disorder Seasonal affective disorder (HCC) Other specified episodic mood disorder documented in this encounter Advance Directives [...] Power of Attor narda? No Care Teams Cardiology Teacher Relationship Specialty Start Date End Date Scott Weldon MD [address] [facility] [place] [address] PCP - General Family Medicine 08/03/18 documented as of this encounter
--- OUTSIDE RECORDS SUMMARY | 2024-09-10 21:18 | External Medical Summary | Summary of Care ---
Author Name Unknown Organization [facility] Address [address] [facility] [place] [address] Phone [phone] Care Team Providers Care Operational Risk Manager Name Role Phone Scott Montoya MD Primary Care Provider + Reason for Visit * Reason Onset Date Comments Medication Refill 06/09/2024 Encounter Details Date Type Department Care Team (Late st Contact Info) Description 06/09/2024 Refill Family Practice [facility] [address] [place] [address] Scott Montoya MD [address] [place] [address] Dyslipidemia, goal LDL below 100; Type 2 diabetes mellitus with hemoglobin A1c goal of less than 8.0% ([facility]); Hypomagnesemia; Bilateral low back pain with sciatica, sciatica laterality unspecified, unspecified chronicity; Esophageal varices without bleeding, unspecified esophageal varices type ([facility]); Colitis Allergies Active Allergy Reactions Criticality Noted Date Comments Naproxen Sodium Bleeding High 11/29/2013 Pollen 12/03/2022 Seasonal Food (See Comments) Anaphylaxis High 04/20/2019 Hot peppers (oils) Kiwi Extract Anaphylaxis High 04/20/2019 documented as of this encounter (statuses as of 07/26/2024) Medications insulin glargine (LANTUS SOLOSTAR) 100 UNIT/ML [...] 5 02/18/20 17 Active Insulin Infusion Pump (MINIMVimagino 630G INSULIN PUMP) KITIndications:Ty pe 2 diabetes [...] suspected opioid overdose. Seek immediate medical attention. [email or web address] 1 Each 3 11/28/19 23 Active NovoLIN [...] MG/DOSE)) Inject under the skin. Obtaining from NovoNoGlassy Pro Active Atorvastatin Calcium 40 MG Oral Tablet [...] morning. 90 Tablet 2 06/11/19 25 Active Dicyclomine HCl 20 MG Oral Tablet (Bentyl) Take 1 Tablet by mouth 2 times a day as needed for Pain or Cramping. 180 Tablet 3 11/15/19 23 025 Disconti nued(Ref ill) Loratadine 10 MG Oral Tablet (Claritin)Indicat ions:Allergic rhinitis TAKE 1 TABLET BY MOUTH IN THE MORNING FOR ALLERGIES. 90 Tablet 1 04/13/20 23 025 Disconti nued(Ref ill) Meclizine HCl 25 MG Oral Tablet (Antivert)Indicat ions:Vertigo Take 1 Tablet by mouth 3 times a day as needed for Dizziness. 30 Tablet 1 02/03/20 24 025 Disconti nued(Ref ill) Potassium Chloride Laura ER 20 MEQ Oral Tablet Extended Release Take 1 Tablet by mouth in the morning. 90 Tablet 3 4 6:06 PM EDT 02/12/20 24 025 Disconti nued(Ref ill) Magnesium Oxide -Mg Supplement 400 (240 Mg) MG Oral Tablet (Mag-Ox)Indicatio ns:Hypomagnesemia Take 1 Tablet by mouth in the morning. 90 Tablet 3 4 6:26 PM EDT 02/12/20 24 01/02/2 025 Disconti nued(Ref ill) Atorvastatin Calcium 40 MG Oral Tablet (Lipitor)Indicati ons:Dyslipidemia, goal LDL below 100 Take 1 Tablet by mouth at bedtime. 90 Tablet 3 4 11:12 AM EST 02/12/20 24 025 Disconti nued(Ref ill) Pantoprazole Sodium 40 MG Oral Tablet Delayed Release (Protonix)Indicat ions:Esophageal varices without bleeding, unspecified esophageal varices type (HCC),Colitis Take 1 Tablet by mouth in the morning. 90 Tablet 3 4 9:54 AM EST 02/12/20 24 025 Disconti nued(Ref ill) Pregabalin 100 MG Oral Capsule (Lyrica)Indicatio ns:Bilateral low back pain with sciatica, sciatica laterality unspecified, unspecified chronicity Take 1 Capsule by mouth in the morning and 1 Capsule at noon and 1 Capsule before bedtime. 300 Capsule 1 4 4:07 PM EST 02/13/20 24 025 Disconti nued(Ref ill) Furosemide 40 MG Oral Tablet (Lasix) Take 1 Tablet by mouth every other day. 50 Tablet 1 4 8:54 AM EST 02/19/20 24 025 Disconti nued(Ref ill) Empagliflozin 10 MG Oral Tablet (Jardiance)Indica tions:Type 2 diabetes mellitus with hemoglobin A1c goal of less than 8.0% ([facility]) Take 1 Tablet by mouth in the morning. 90 Tablet 3 02/26/20 24 025 Disconti nued(Ref ill) Metoclopramide HCl 5 MG Oral Tablet (Reglan) Take 1 Tablet by mouth in the morning and 1 Tablet at noon and 1 Tablet in the evening. Take before meals. If needed for nausea. 300 Tablet 1 4 1:51 PM EDT 02/26/20 24 025 Disconti nued(Ref ill) Escitalopram Oxalate 20 MG Oral Tablet (Lexapro) Take 1 Tablet by mouth in the morning. 90 Tablet 1 4 5:54 PM EST 04/14/20 24 025 Disconti nued(Ref ill) Eszopiclone 2 MG Oral Tablet (Lunesta) Take 1 Tablet by mouth at bedtime. Do not start before May 04, 2024. 30 Tablet 2 4 11:35 AM EST 05/04/20 24 025 Disconti nued(Ref ill) Albuterol Sulfate HFA 108 (90 Base) MCG/ACT Inhalation Aerosol Solution Inhale 2 puffs by mouth every 6 hours as needed for shortness of breath 20.1 g 4 6:37 PM EST 03/19/20 24 025 Disconti nued(Ref ill) Baclofen 10 MG Oral Tablet (Lioresal)Indicat ions:Back spasm Take 1 Tablet by mouth in the morning and 1 Tablet at noon and 1 Tablet before bedtime. 90 Tablet 2 4 1:21 PM EST 05/16/20 24 025 Disconti nued(Ref ill) Buprenorphine 5 MCG/HR Transdermal Patch Weekly (Butrans)Indicati ons:Controlled substance agreement signed,Chronic bilateral low back pain with sciatica, sciatica laterality unspecified,Chron ic pain syndrome Place 1 Patch topically on the skin once a week. 4 Patch 06/03/20 24 025 Disconti nued(Ref ill) Escitalopram Oxalate 20 MG Oral Tablet (Lexapro) Take 1 Tablet by mouth in the morning. 90 Tablet 06/11/19 25 025 Disconti nued(Ref ill) documented as of this encounter (statuses as of 07/26/2024) Active Problems Problem Noted Date Diagnosed Date [...] as of this encounter (statuses as of 07/26/2024) Resolved Problems Problem Noted Date Diagnosed Date [...] as of this encounter (statuses as of 07/26/2024) Immunizations Name Administration Dates Next Due COVID-19 mRNA, LNP-s, No Pre serve, 2-Dose Series ([employer]) 11/08/2020,10/11/2020 HEP A - Hepatitis A (Adult > 18 yrs) 04/11/2011, 09/20/2010 Hepatitis B, 20+ yrs 07/05/2015 Pneumococcal Conjugate Vacci ne, 20-valent ([id number]) 03/13/2023 Pneumococcal Polysaccharide PPV23 (Pneumovax) 02/19/2018,03/09/2007 Seasonal [...] Assessment Author No 04/20/2019 10:25 AM Teresa Gonzalze LPN * Do you have serious difficulty [...] Telephone Encounter - Scott Montoya MD - 07/25/2024 4:54 PM ESTSigned Prescriptions: Disp Refills Atorvastatin Calcium 40 MG Oral Tablet (Li*90 Tab*2 Sig: Take 1 Tablet by mouth at bedtime. Authorizing Provider: SCOTT MONTOYA Ordering User: FITO HILLMAN Empagliflozin 10 MG Oral Tablet (Jardiance)90 Tab*2 Sig: Take 1 Tablet by mouth in the morning. Authorizing Provider: SCOTT MONTOYA Ordering User: FITO HILLMAN Magnesium Oxide -Mg Supplement 400 (240 Mg*90 Tab*2 Sig: Take 1 Tablet by mouth in the morning. Authorizing Provider: SCOTT MONTOYA Ordering User: FITO HILLMAN Pregabalin 100 MG Oral Capsule (Lyrica) 300 Ca*1 Sig: Take 1 Capsule by mouth in the morning and 1 Capsule at noon and 1 Capsule before bedtime. Authorizing Provider: SCOTT MONTOYA Pantoprazole Sodium 40 MG Oral Tablet Tisha*90 Tab*2 Sig: Take 1 Tablet by mouth in the morning. Authorizing Provider: SCOTT MONTOYA Ordering User: FITO HILLMAN Potassium Chloride Laura ER 20 MEQ Oral Tab*90 Tab*2 Sig: Take 1 Tablet by mouth in the morning. Authorizing Provider: SCOTT MONTOYA Ordering User: FITO HILLMAN * Telephone Encounter - Tricia Pollyngozi Box [facility] - 07/25/2024 5:34 AM EST Pending Prescriptions: Disp Refills Pregabalin 100 MG Oral Capsule (Lyrica) 300 Ca*1 Sig: Take 1 Capsule by mouth in the morning and 1 Capsule at noon and 1 Capsule before bedtime. Signed Prescriptions: Disp Refills Atorvastatin Calcium 40 MG Oral Tablet (Li*90 Tab*2 Sig: Take 1 Tablet by mouth at bedtime. Authorizing Provider: SCOTT MONTOYA Ordering User: FITO HILLMAN Empagliflozin 10 MG Oral Tablet (Jardiance)90 Tab*2 Sig: Take 1 Tablet by mouth in the morning. Authorizing Provider: SCOTT MONTOYA Ordering User: FITO HILLMAN Magnesium Oxide -Mg Supplement 400 (240 Mg*90 Tab*2 Sig: Take 1 Tablet by mouth in the morning. Authorizing Provider: SCOTT MONTOYA Ordering User: FITO HILLMAN Pantoprazole Sodium 40 MG Oral Tablet Tisha*90 Tab*2 Sig: Take 1 Tablet by mouth in the morning. Authorizing Provider: SCOTT MONTOYA Ordering User: FITO HILLMAN Potassium Chloride Laura ER 20 MEQ Oral Tab*90 Tab*2 Sig: Take 1 Tablet by mouth in the morning. Authorizing Provider: SCOTT MONTOYA Ordering User: FITO HILLMAN * Telephone Encounter - Sandra Griffin [facility] - 07/18/2024 4:11 AM EST Postponed until 07/25/24 100 day supply filled 04/25/24 Not due until 08/03/24 * Telephone Encounter - Fito Fernandez [facility] - 06/11/2024 10:08 AM EST Postponed until 07/18/24 I have reviewed the patient’s controlled substance dispensing history in the Prescription Drug Monitoring Program in compliance with the [facility] regulations before prescribing a controlled substance. PDMP checked on 06/11/2024. Pending Prescriptions: Disp Refills Pregabalin 100 MG Oral Capsule (Lyrica) 300 Ca*1 Sig: Take 1 Capsule by mouth in the morning and 1 Capsule at noon and 1 Capsule before bedtime. Signed Prescriptions: Disp Refills Atorvastatin Calcium 40 MG Oral Tablet (Li*90 Tab*2 Sig: Take 1 Tablet by mouth at bedtime. Authorizing Provider: SCOTT MONTOYA Ordering User: FITO HILLMAN Escitalopram Oxalate 20 MG Oral Tablet (Le*90 Tab*0 Sig: Take 1 Tablet by mouth in the morning. Authorizing Provider: SCOTT MONTOYA Ordering User: FITO HILLMAN Empagliflozin 10 MG Oral Tablet (Jardiance)90 Tab*2 Sig: Take 1 Tablet by mouth in the morning. Authorizing Provider: SCOTT MONTOYA Ordering User: FITO HILLMAN Magnesium Oxide -Mg Supplement 400 (240 Mg*90 Tab*2 Sig: Take 1 Tablet by mouth in the morning. Authorizing Provider: SCOTT MONTOYA Ordering User: FITO HILLMAN Pantoprazole Sodium 40 MG Oral Tablet Tisha*90 Tab*2 Sig: Take 1 Tablet by mouth in the morning. Authorizing Provider: SCOTT MONTOYA Ordering User: FITO HILLMAN Potassium Chloride Laura ER 20 MEQ Oral Tab*90 Tab*2 Sig: Take 1 Tablet by mouth in the morning. Authorizing Provider: SCOTT MONTOYA Ordering User: FITO HILLMAN Last Visit: 05/18/2024 (in office), 03/16/2024 (telemedicine) Next Visit: 06/30/2024 Date medication was last filled: 04/25/24 Date medication is due for refill: 07/24/24 Pharmacy: [facility] [place] [facility] Is this request for a controlled [...] Review. Please approve if appropriate. Thank You, Fito Hillman [facility] Clinical Pharmacist [facility] ([facility]) 06/11/2024, 10:09 AM * Telephone Encounter - Arianne Ruff CPhT - 06/09/2024 2:59 PM EST Please reroute Rx to [facility] Pending Prescriptions: Disp Refills Atorvastatin Calcium 40 MG Oral Tablet (L*90 Tab*2 Sig: Take 1 Tablet by mouth at bedtime. Escitalopram Oxalate 20 MG Oral Tablet (L*90 Tab*0 Sig: Take 1 Tablet by mouth in the morning. Empagliflozin 10 MG Oral Tablet (Jardianc*90 Tab*3 Sig: Take 1 Tablet by mouth in the morning. Magnesium Oxide -Mg Supplement 400 (240 M*90 Tab*3 Sig: Take 1 Tablet by mouth in the morning. Pregabalin 100 MG Oral Capsule (Lyrica) 300 Ca*1 Sig: Take 1 Capsule by mouth in the morning and 1 Capsule at noon and 1 Capsule before bedtime. Pantoprazole Sodium 40 MG Oral Tablet Del*90 Tab*2 Sig: Take 1 Tablet by mouth in the morning. Potassium Chloride Laura ER 20 MEQ Oral Ta*90 Tab*2 Sig: Take 1 Tablet by mouth in the morning. Last Visit: 05/18/2024 (in office), 03/16/2024 (telemedicine) 06/30/2024 If no future appointments scheduled, and last appointment is greater than a year ago, please schedule patient for a follow-up appointment Last date the medication was ordered: 02/12/2024, 02/13/2024, 04/14/2024 Patient Phone Numbers Labs: Lab Results Component Value Date/Time CREAT 1.4 (H) 05/16/2024 02:33 PM CREAT 1.45 (A) 02/03/2024 12:00 AM CREAT 1.1 (H) 06/14/2020 09:00 AM POTASSIUM 3.9 05/16/2024 02:33 PM POTASSIUM 5.0 02/03/2024 12:00 AM POTASSIUM 4.2 06/14/2020 09:00 AM POTASSIUM 4.5 07/18/1996 10:50 AM TSH 0.73 04/06/2020 01:20 PM LDL 65 05/16/2024 02:33 PM LDL 54 07/23/2023 12:00 PM LDL 62 12/12/2019 09:47 AM LDL NOT APPLICABLE 12/12/2019 09:47 AM ALT 11 03/10/2024 02:08 PM ALT 17 06/14/2020 09:00 AM HGBA1C 6.5 (H) 05/16/2024 02:33 PM HGBA1C 7.9 (H) 06/14/2020 09:00 AM documented in this encounter Plan of Treatment Upcoming Encounters Date Type Department Care Team (Late st Contact Info) Description 07/29/2024 8:00 AM EST Imaging Radiology [facility] [address] [place] [address] 07/29/2024 8:45 AM EST Imaging Radiology [facility] [facility] [address] [place] [phone] 08/08/2024 10:30 AM EST Hem/Onc Treatment Hematology/Oncology Treatment, [place] [address] [place] [phone] 08/09/2024 1:00 PM EST Telemedicine Nutrition, [facility] [address] [place] [address] Sharon Cabello RDN [address] [place] [address] 08/11/2024 12:30 PM EST Telemedicine Psychiatry [facility] [address] [place] [phone] Nhi Fritz CRNP [address] [facility] [place] [phone] 08/12/2024 10:30 AM EST [facility] [phone] [address] [address] 09/08/2024 8:00 AM EDT Imaging [facility] 2nd Floor Cardiology, [place] [address] [facility] [place] [phone] 09/14/2024 2:00 PM EDT Office Visit Hematology/Oncology [facility] [address] [place] [phone] Sunil Bourgeois MD [address] [facility] [place] [address] 09/15/2024 9:30 AM EDT Telemedicine Pharmacy, [facility] [address] [facility] [place] [address] [facility] [place] [address] 09/29/2024 1:00 PM EDT Office Visit Family Practice [facility] [address] [facility] [place] [address] Jadiel Epstein CRNP [address] [place] [address] 10/18/2024 2:20 PM EDT Telemedicine Hepatology, [place] [address] [place], [place] [phone] eLs Enidjose Becerril DO [address] [place], [place] [phone] 12/14/2024 12:20 PM EDT Office Visit [facility] [address] [facility] [place] [address] Scott Montoya MD [address] [facility] [place] [address] 03/13/2025 2:00 PM EDT [facility] [address] [facility] [place] [address] Jonathan Mathew MD [address] [facility] [place] [address] 06/16/2025 11:40 AM EST Office Visit [facility] [address] [place] [address] Scott [facility] [address] [facility] [address] Scheduled Procedures Name Priority Associated Diagnoses [...] this encounter Medical Devices Implanted Type Area Warp Doffer Device Identifier Shelf Expiration Date Model / Serial / Lot Neurostimul Intellis Adapt[employer] - [id number] - [id number] Implanted:Qty: 1 on 08/22/2022 by Rafia Small MD at OR [facility] N/A: Spine Lumbar [employer] 06/21/2023 [id number] / [id number] / Description:battery Medtronic Lead Kit 60 Cm Implanted:Qty: 1 on 08/22/2022 by Rafia Small MD at OR [facility] N/A: Spine Lumbar 02/01/2026 [id number] / / [id number] Medtronic Lead Kit 60cm Implanted:Qty: 1 on 08/22/2022 by Rafia Small MD at OR [facility] N/A: Spine Lumbar 03/21/2026 [id number] / / [id number] Envelope Tyrx Med Antibacteril - [id number] Implanted:Qty: 1 on 08/22/2022 by Rafia Small MD at OR [facility] N/A: Spine Lumbar [employer] 03/10/2023 [id number] / / [id number] Hemostatic Clip Res 235cm - [id number] Implanted:Qty: 4 on 10/05/2023 by Aj Pruett DO at [facility] 02/03/2026 [id number] / / Hemostatic Clip Res 235cm - [id number] Implanted:Qty: 1 on 10/05/2023 by Aj Pruett DO at [facility] : ENDOSCOPY 02/02/2026 [id number] / / documented as of this encounter Visit Diagnoses Diagnosis Dyslipidemia, goal LDL below 100 Other and unspecified hyperlipidemia Type 2 diabetes mellitus with hemoglobin A1c goal of less than 8.0% (HCC) Hypomagnesemia Disorders of magnesium metabolism Bilateral low back pain with sciatica, sciatica laterality unspecified, unspecified chronicity Esophageal varices without bleeding, unspecified esophageal varices type (HCC) Colitis Other and unspecified noninfectious gastroenteritis and colitis documented in this encounter Advance Directives * [...] Power of Attor narda? No Care Teams Operational Risk Manager Relationship Specialty Start Date End Date Scott Montoya MD [address] [facility] [place] [address] PCP - General Family Medicine 08/03/18 documented as of this encounter
--- OUTSIDE RECORDS SUMMARY | 2024-09-10 21:18 | External Medical Summary | Summary of Care ---
Author Name Unknown Organization [facility] Address [address] [facility] [place] [address] Phone [phone] Care Team Providers Care Channel Development Director Name Role Phone Scott Montoya MD Primary Care Provider + Reason for Referral * Medication Prior Authorization - Closed Specialty Diagnoses / Procedures Referred By Dory payan Referred To Contact Diagnoses Controlled substance agreement signed Chronic bilateral low back pain with sciatica, sciatica laterality unspecified Chronic pain syndrome Scott Montoya MD [address] [place] [address] Phone: tel: fax: Referral ID Status Reason Start Date Expiration Date Visits Re quested Visits Authorized [id number] Closed 999 999 Reason for Visit * Reason Onset Date Comments Medication Refill 07/25/2024 Encounter Details Date Type Department Care Team (Late st Contact Info) Description 07/25/2024 Refill Family Practice [facility] [address] [address] Scott Montoya MD [address] [place] [id number] Controlled substance agreement signed; Chronic bilateral low back pain with sciatica, sciatica laterality unspecified; Chronic pain syndrome Allergies Active Allergy Reactions Criticality Noted Date Comments Naproxen Sodium Bleeding High 11/29/2013 Pollen 12/03/2022 Seasonal Food (See Comments) Anaphylaxis High 04/20/2019 Hot peppers (oils) Kiwi Extract Anaphylaxis High 04/20/2019 documented as of this encounter (statuses as of 07/28/2024) Medications insulin glargine (LANTUS SOLOSTAR) 100 UNIT/ML SOPN 50 units daily in case of pump malfunction 5 Pre-filled Pen Syringe Dosing Unit 3 12/31/19 16 Active B-D Ultrafine III, 5MM, Pen MISC Use as directed. 100 Pre-filled Pen Syringe Dosing Unit 3 12/31/19 16 Active Glucose Blood ([employer] CONTOUR NEXT TEST) STRP Use to test blood sugar up to 6 times per day. E11.9 These are the ONLY test strips patient can use with insulin pump 200 Strip 5 02/18/20 17 Active Insulin Infusion Pump (MINIMOnyvax 630G INSULIN PUMP) KITIndications:Ty pe 2 diabetes mellitus with hemoglobin A1c goal of less than 8.0% ([facility]) Use as directed. 07/30/19 18 Active CPAP every night at bedtime. Active Glucagon Emergency 1 MG Injection Kit As directed 1 Kit 3 09/05/19 23 Active Naloxone HCl 4 MG/0.1ML Nasal Liquid (Narcan Nasal)Indications :Controlled substance agreement signed,Chronic pain syndrome Administer 1 spray into 1 nostril for suspected opioid overdose. Seek immediate medical attention. https://www.youtu be.com/watch?v=[email or web address] 1 Each 3 11/28/19 23 Active NovoLIN [...] MG/DOSE)) Inject under the skin. Obtaining from [employer] Active Atorvastatin Calcium 40 MG Oral Tablet [...] a week. 4 Patch 07/27/19 25 Active Buprenorphine 5 MCG/HR Transdermal Patch Weekly (Butrans)Indicati ons:Controlled substance agreement signed,Chronic bilateral low back pain with sciatica, sciatica laterality unspecified,Chron ic pain syndrome Place 1 Patch topically on the skin once a week. 4 Patch 06/11/19 25 025 Disconti nued(Ref ill) documented as of this encounter (statuses as of 07/28/2024) Active Problems Problem Noted Date Diagnosed Date [...] as of this encounter (statuses as of 07/28/2024) Resolved Problems Problem Noted Date Diagnosed Date [...] as of this encounter (statuses as of 07/28/2024) Immunizations Name Administration Dates Next Due COVID-19 mRNA, LNP-s, No Pre serve, 2-Dose Series (Picatic) 11/08/2020,10/11/2020 HEP A - Hepatitis A (Adult > 18 yrs) 04/11/2011, 09/20/2010 Hepatitis B, 20+ yrs 07/05/2015 Pneumococcal Conjugate Vacci ne, 20-valent ([id number]) 03/13/2023 Pneumococcal Polysaccharide PPV23 (Pneumovax) 02/19/2018,03/09/2007 Seasonal [...] Telephone Encounter - Scott Montoya MD - 07/27/2024 10:57 PM EST Signed Prescriptions: Disp Refills Buprenorphine 5 MCG/HR Transdermal Patch W*4 Patch0 Sig: Place 1 Patch topically on the skin once a week. Authorizing Provider: SCOTT MONTOYA * Telephone Encounter - Gissel Prather [facility] - 07/26/2024 12:26 PM ESTPending Prescriptions: Disp Refills Buprenorphine 5 MCG/HR Transdermal Patch W*4 Patch0 Sig: Place 1 Patch topically on the skin once a week. * Telephone Encounter - Gissel Prather [facility] - 07/26/2024 12:25 PM EST I have reviewed the patient’s controlled substance dispensing history in the Prescription Drug Monitoring Program in compliance with the [facility] regulations before prescribing a controlled substance. PDMP checked on 07/26/2024. Pending Prescriptions: Disp Refills Buprenorphine 5 MCG/HR Transdermal Patch *4 Patch0 Sig: Place 1 Patch topically on the skin once a week. Last Visit: 06/30/2024 (in office), 03/16/2024 (telemedicine) Next Visit: 09/29/2024 Date medication was last filled: 06/29/24 Date medication is due for refill: 07/26/24 [facility]acy: [id number] [address] [facility] Is this request for a controlled substance? Yes and Urine Drug Screen was completed Toxicology results: Results for orders placed or performed in visit on 11/25/23 PAIN MANAGEMENT DRUG PANEL, URINE W/ INTERPRETATION Result Value Pain Management Interpretation Based on the medication information provided: [...] Screen, U Negative Oxycodone Screen, U Negative Specimen Validity Interpretation Normal Creatinine, U 65 Narrative Cutoff [...] Review. Please approve if appropriate. Thanks, Gissel Prather, PharmD Clinical Pharmacist [facility] [phone] 07/26/2024 12:25 PM documented in this encounter Plan of Treatment Upcoming Encounters Date Type Department Care Team (Late st Contact Info) Description 07/29/2024 8:00 AM EST Imaging Radiology [facility] [address] [place] [address] 07/29/2024 8:45 AM EST Imaging Radiology [facility] 1st Floor, [place] [address] [place] [address] 08/08/2024 10:30 AM EST Hem/Onc Treatment Hematology/Oncology Treatment, [place] [address] [place] [address] 08/09/2024 1:00 PM EST Telemedicine Nutrition, [facility] [address] [facility] [place] [address] Sharon Cabello, RDN [address] [facility] [place] [address] 08/11/2024 12:30 PM EST Telemedicine Psychiatry [facility] [address] [place] [address] Nhi Fritz CRNP [address] [place] [address] 08/12/2024 10:30 AM EST [facility] [place] [facility] [address] [facility] [phone] [address]esh [address] [address] 09/08/2024 8:00 AM EDT Imaging [facility] 2nd Floor Cardiology, [place] [address] [facility] [place] [address] 09/14/2024 2:00 PM EDT Office Visit Hematology/Oncology [facility] [address] [place] [phone] Sunil Bourgeois MD [address] [facility] [place] [address] 09/15/2024 9:30 AM EDT Telemedicine Pharmacy, [facility] [address] [facility] [place] [address] [facility] [address] [place] [address] 09/29/2024 1:00 PM EDT Office Visit [facility] [address] [place] [address] Jadiel Epstein CRNP [address] [place] [address] 10/18/2024 2:20 PM EDT Telemedicine Hepatology, [place] [address], [place] [id number] Enid Saldana [address], [place] [id number] 12/14/2024 12:20 PM EDT Office Visit [facility] [address] [place] [address] Scott Montoya MD [address] [place] [address] 03/13/2025 2:00 PM EDT Office Visit Nephrology, [facility] [address] [facility] [place] [address] Jonathan Mathew MD [address] [facility] [place] [address] 06/16/2025 11:40 AM EST Office Visit [facility] [address] [place] [address] Scott Montoya MD [address] [place] [address] Scheduled Procedures Name Priority Associated Diagnoses Date/Ti [...] this encounter Medical Devices Implanted Type Area Application Packager Device Identifier Shelf Expiration Date Model / Serial / Lot Neurostimul Intellis [employer] - [id number] - [id number] Implanted:Qty: 1 on 08/22/2022 by Rafia Small MD at OR [facility] N/A: Spine Lumbar [employer] 06/21/2023 [id number] / [id number] / Description:battery Medtronic Lead Kit 60 Cm Implanted:Qty: 1 on 08/22/2022 by Rafia Small MD at OR [facility] N/A: Spine Lumbar 02/01/2026 [id number] / / [id number] Medtronic Lead Kit 60cm Implanted:Qty: 1 on 08/22/2022 by Rafia Small MD at OR [facility] N/A: Spine Lumbar 03/21/2026 [id number] / / [id number] Envelope [employer] Med Antibacteril - [id number] Implanted:Qty: 1 on 08/22/2022 by Rafia Small MD at OR [facility] N/A: Spine Lumbar [employer] 03/10/2023 [id number] / / [id number] Hemostatic Clip Res 235cm - [id number] Implanted:Qty: 4 on 10/05/2023 by Aj Pruett DO at ENDOSCOPY [facility] 02/03/2026 [id number] / / Hemostatic Clip Res 235cm - [id number] Implanted:Qty: 1 on 10/05/2023 by Aj Pruett DO at ENDOSCOPY [facility] : ENDOSCOPY 02/02/2026 [id number] / / documented as of this encounter [...] Power of Attor narda? No Care Teams Channel Development Director Relationship Specialty Start Date End Date Scott Montoya MD [address] [place] [address] PCP - General Family Medicine 08/03/18 documented as of this encounter
--- OUTSIDE RECORDS SUMMARY | 2024-09-10 21:18 | External Medical Summary | Summary of Care ---
Author Name Unknown Organization [facility] Address [address] [facility] [address] Phone [phone] Care Team Providers Care Display Designer Outside Name Role Phone Scott Wledon MD Primary Care Provider + Reason for Visit * Reason Comments Infusion C1 D85 Venofer Encounter Details Date Type Department Care Team (Latest Contact Info) Description 06/14/2024 2:00 PM EST Hem/Onc Treatment Hematology/Oncology Treatment, [address] [address] Nora, Chair 2 Hem Onc [address] [address] Iron deficiency anemia due to chronic blood loss*; Cirrhosis of liver without ascites, unspecified hepatic cirrhosis type (HCC); Iron deficiency anemia, unspecified iron deficiency anemia type; Type 2 diabetes mellitus with hemoglobin A1c goal of less than 8.0% (HCC) Allergies Active Allergy Reactions Criticality Noted Date Comments Naproxen Sodium Bleeding High 11/29/2013 Pollen 12/03/2022 Seasonal Food (See Comments) Anaphylaxis High 04/20/2019 Hot peppers (oils) Kiwi Extract Anaphylaxis High 04/20/2019 documented as of this encounter (statuses as of 07/20/2024) Medications insulin glargine (LANTUS SOLOSTAR) 100 UNIT/ML [...] 5 02/18/20 17 Active Insulin Infusion Pump (MINIMFuzmo 630G INSULIN PUMP) KITIndications:Ty pe 2 diabetes [...] suspected opioid overdose. Seek immediate medical attention. [email or web address] 1 Each 3 11/28/19 23 Active NovoLIN [...] FOR NAUSEA 30 Tablet 08/10/19 24 Active Pregabalin 100 MG Oral Capsule (Lyrica)Indicatio ns:Bilateral low back pain with sciatica, sciatica laterality unspecified, unspecified chronicity Take 1 Capsule by mouth in the morning and 1 Capsule at noon and 1 Capsule before bedtime. 300 Capsule 1 4 4:07 PM EST 02/13/20 24 Active Ozempic (2 MG/DOSE) 8 MG/3ML Subcutaneous Solution Pen-injector (Semaglutide (2 MG/DOSE)) Inject under the skin. Obtaining from eOriginal Active Atorvastatin Calcium 40 MG Oral Tablet [...] allergies.. 90 Tablet 3 06/11/19 25 Active Buprenorphine 5 MCG/HR Transdermal Patch Weekly (Butrans)Indicati ons:Controlled substance agreement signed,Chronic bilateral low back pain with sciatica, sciatica laterality unspecified,Chron ic pain syndrome Place 1 Patch topically on the skin once a week. 4 Patch 06/11/19 25 Active Dicyclomine HCl 20 MG Oral Tablet (Bentyl) Take 1 Tablet by mouth 2 times a day as needed for Pain or Cramping. 180 Tablet 3 11/15/19 23 025 Disconti nued(Ref ill) Escitalopram Oxalate 20 MG Oral Tablet (Lexapro) Take 1 Tablet by mouth in the morning. 90 Tablet 06/11/19 25 025 Disconti nued(Ref ill) Eszopiclone 2 MG Oral Tablet (Lunesta) Take 1 Tablet by mouth at bedtime. 30 Tablet 1 06/13/19 25 025 Disconti nued(Ref ill) documented as of this encounter (statuses as of 07/20/2024) Active Problems Problem Noted Date Diagnosed Date [...] as of this encounter (statuses as of 07/20/2024) Resolved Problems Problem Noted Date Diagnosed Date [...] (09/03/2009): Per Obesity Taxonomy Coronary atherosclerosis of [place] coronary artery 09/15/2008 10/03/2008 Malaise and [...] as of this encounter (statuses as of 07/20/2024) Immunizations Name Administration Dates Next Due COVID-19 mRNA, LNP-s, No Pre serve, 2-Dose Series (VisibleGains) 11/08/2020,10/11/2020 HEP A - Hepatitis A (Adult > 18 yrs) 04/11/2011, 09/20/2010 Hepatitis B, 20+ yrs 07/05/2015 Pneumococcal Conjugate Vacci ne, 20-valent ([id number]) 03/13/2023 Pneumococcal Polysaccharide PPV23 (Pneumovax) 02/19/2018,03/09/2007 Seasonal [...] Sign Reading Time Taken Comments Blood Pressure 95/64 06/14/2024 2:11 PM EST Pulse 96 06/14/2024 2:11 PM EST Temperature 36.5 °C (97.7 °F) 06/14/2024 2:11 PM ES T Respiratory Rate 16 06/14/2024 2:11 PM EST Oxygen Saturation 93% 06/14/2024 2:11 PM EST Inhaled Oxygen Concentration - - [...] this encounter Nursing Notes * Valorie Toro, RN - 06/14/2024 4:20 PM EST Patient tolerated treatment without issue. VAD with brisk blood return and flushed [...] stable condition. * Valorie Toro RN - 06/14/2024 4:17 PM EST Chair 5 Patient here for venofer infusion. Port accessed with brisk blood return. Patient [...] Team (Late st Contact Info) Description 08/08/2024 10:30 AM EST Hem/Onc Treatment Hematology/Oncology Treatment, [place] [address] [place] [phone] 08/09/2024 1:00 PM EST Telemedicine [facility] [address] [facility] [place] [address] Sharon Cabello RDN [address] [place] [address] 08/11/2024 12:30 PM EST Telemedicine Psychiatry [facility] [place] [facility] [phone] Nhi Fritz CRNP 68 [facility] [place] [phone] 08/12/2024 10:30 AM EST Office Visit Pharmacy, [address] [facility] [place] [phone] [address] 09/14/2024 2:00 PM EDT Office Visit Hematology/Oncology [facility] [place] [address] [place] [phone] Sunil Bourgeois MD 200 [facility] [place] [address] 09/15/2024 9:30 AM EDT Telemedicine Pharmacy, [facility] [address] [facility] [place] [address] [facility] [address] [facility] [place] [address] 09/29/2024 1:00 PM EDT Office Visit [facility] [address] [facility] [place], [place] [address] Jadiel Epstein CRNP [address] [place] [address] 10/18/2024 2:20 PM EDT Telemedicine Hepatology, [place] [address] [place] [address] Enid Saldana [address] [place] [address] 12/14/2024 12:20 PM EDT Office Visit [facility] [address] [facility] [place] [address] Scott Weldon MD [address] [facility] [place] [address] 03/13/2025 2:00 PM EDT Office Visit Nephrology, [facility] [address] [place], [place] [address] Jonathan Mathew MD [address] [place] [address] 06/16/2025 11:40 AM EST Office Visit Family Practice [facility] [address] [place] [address] Scott Weldon MD [address] [place] [address] Scheduled Procedures Name Priority Associated Diagnoses Date/Ti [...] this encounter Medical Devices Implanted Type Area Electromyographic Technician Device Identifier Shelf Expiration Date Model / Serial / Lot Neurostimul Intellis Adaptiv - [id number] - [id number] Implanted:Qty: 1 on 08/22/2022 by Rafia Small MD at OR [facility] N/A: Spine Lumbar [employer] 06/21/2023 [id number] / [id number] / Description:battery Medtronic Lead Kit 60 Cm Implanted:Qty: 1 on 08/22/2022 by Rafia Small MD at OR [facility] N/A: Spine Lumbar 02/01/2026 [id number] / / [id number] Medtronic Lead Kit 60cm Implanted:Qty: 1 on 08/22/2022 by Rafia Small MD at OR [facility] N/A: Spine Lumbar 03/21/2026 [id number] / / [id number] Envelope Tyrx Med Antibacteril - [id number] Implanted:Qty: 1 on 08/22/2022 by Rafia Small MD at OR [facility] N/A: Spine Lumbar [employer] 03/10/2023 [id number] / / [id number] Hemostatic Clip Res 235cm - [id number] Implanted:Qty: 4 on 10/05/2023 by Aj Pruett, DO at ENDOSCOPY [facility] [employer] : ENDOSCOPY 02/03/2026 [id number] / / Hemostatic Clip Res 235cm - [id number] Implanted:Qty: 1 on 10/05/2023 by Aj Pruett, DO at ENDOSCOPY [facility] [employer] : ENDOSCOPY 02/02/2026 [id number] / / documented as of this encounter Procedures Procedure Name Priority Date/Time Associated Diagnosis Comments DIFFERENTIAL, AUTOMATED STAT 06/14/2024 2:20 PM EST Iron deficiency anemia, unspecified iron deficiency anemia type BASIC METABOLIC PANEL Routine 06/14/2024 2:20 PM EST Type 2 diabetes mellitus with hemoglobin A1c goal of less than 8.0% (HCC) IRON SCREEN, INCLUDING TIBC STAT 06/14/2024 2:20 PM EST Iron deficiency anemia, unspecified iron deficiency anemia type CBC STAT 06/14/2024 2:20 PM EST Iron deficiency anemia, unspecified iron deficiency anemia type CBC STAT 06/14/2024 2:20 PM EST Iron deficiency anemia, unspecified iron deficiency anemia type DIFFERENTIAL, TECHNOLOGIST REVIEW Routine 06/14/2024 2:20 PM EST Iron deficiency anemia, unspecified iron deficiency anemia type FERRITIN STAT 06/14/2024 2:20 PM EST Iron deficiency anemia, unspecified iron deficiency anemia type documented in this encounter Results * (ABNORMAL) DIFFERENTIAL, TECHNOLOGIST REVIEW (06/14/2024 2:20 PM EST) Pathologist [facility] 06/14/2024 2:50 PM EST [facility] 56-02 Elliptocytes Moderate(A ) None Seen 06/14/2024 2:50 PM EST [facility] 56-02 Blood Venous blood specimen / Unknown Central Line / Unknown 06/14/2024 2:20 PM EST 06/14/2024 2:33 PM EST us Sunil Bourgeois MD LAB BLOOD ORDERABLES Final Res ult [facility] 56-[address] [place] [address] * DIFFERENTIAL, AUTOMATED (06/14/2024 2:20 PM EST) WBC 5.96 4.00 - 10.80 K/uL 06/14/2024 2:50 PM EST [facility] 56-02 Neutrophils % 67.3 40.0 - 75.0 % 06/14/2024 2:50 PM [facility] 56-02 Lymphocytes % 18.6 18.0 - 42.0 % 06/14/2024 2:50 PM [facility] 56-02 Monocytes % 8.1 1.0 - 11.0 % 06/14/2024 2:50 PM [facility] 56-02 Eosinophils % 5.5 0.0 - 6.0 % 06/14/2024 2:50 PM EST [facility] 56-02 Basophils % 0.5 0.0 - 2.0 % 06/14/2024 2:50 PM [facility] 56-02 Absolute Neutrophils 4.01 1.80 - 7.70 K/uL 06/14/2024 2:50 PM [facility] 56-02 Absolute Lymphocytes 1.11 1.00 - 4.80 K/ul 06/14/2024 2:50 PM EST [facility] 56-02 Absolute Monocytes 0.48 0.00 - 1.10 K/uL 06/14/2024 2:50 PM [facility] 56-02 Absolute Eosinophils 0.33 0.00 - 0.70 K/uL 06/14/2024 2:50 PM EST [facility] 56-02 Absolute Basophils 0.03 0.00 - 0.20 K/uL 06/14/2024 2:50 PM EST [facility] 56- Blood Venous blood specimen / Unknown Central Line / Unknown 06/14/2024 2:20 PM EST 06/14/2024 2:33 PM EST us Sunil Bourgeois MD LAB BLOOD ORDERABLES Final Res ult [address] [place], [place] [phone] * (ABNORMAL) CBC (06/14/2024 2:20 PM EST) WBC 5.96 4.00 - 10.80 K/uL 06/14/2024 2:50 PM EST [facility] 56 RBC 4.03 3.85 - 5.15 M/uL 06/14/2024 2:[address] HGB 11.2(L) 12.0 - 15.3 g/dL 06/14/2024 2:50 PM [facility] 56 HCT 35.1(L) 36.0 - 45.2 % 06/14/2024 2:50 PM [facility] 56 MCV 87.1 81.5 - 97.5 fL 06/14/2024 2:50 PM [facility] 56- MCH 27.8 27.0 - 34.0 pg 06/14/2024 2:50 PM [facility] 56 MCHC 31.9 32.0 - 36.0 g/dL 06/14/2024 2:50 PM [facility] 56- RDW 17.3 11.5 - 15.5 % 06/14/2024 2:50 PM [facility] 56- PLT 71(L) 140 - 400 K/uL 06/14/2024 2:50 PM [facility] 56- MPV 10.4 6.6 - 11.1 fL 06/14/2024 2:50 PM [facility] 56- Blood Venous blood specimen / Unknown Central Line / Unknown 06/14/2024 2:20 PM EST 06/14/2024 2:33 PM EST us Sunil Bourgeois MD LAB BLOOD ORDERABLES Final Res ult [facility] [address] [place] [address] * (ABNORMAL) BASIC METABOLIC PANEL (06/14/2024 2:20 PM EST) BUN 25(H) 6 - 20 mg/dL 06/14/2024 2:58 PM EST [facility] 56 CREATININE 1.5(H) 0.5 - 1.0 mg/dL 06/14/2024 2:58 PM EST [facility] 56- EGFR 41(L) >=60 mL/min 06/14/2024 2:58 PM EST [facility] 56- Comment:eGFR is calculated b ased on the CKD-EPI 2020 equation. SODIUM 140 135 - 146 mmol/L 06/14/2024 2:58 PM EST [facility] 56- POTASSIUM 4.2 3.5 - 5.1 mmol/L 06/14/2024 2:58 PM EST [facility] 56- CHLORIDE 101 98 - 107 mmol/L 06/14/2024 2:58 PM EST [facility] 56- CO2 27 22 - 32 mmol/L 06/14/2024 2:58 PM EST [facility] 56- ANION GAP 12 7 - 15 mmol/L 06/14/2024 2:58 PM EST [facility] 56- GLUCOSE 204(H) 70 - 120 mg/dL 06/14/2024 2:58 PM EST [facility] 56- CALCIUM 8.8 8.4 - 10.2 mg/dL 06/14/2024 2:58 PM EST [facility] 56- Blood Venous blood specimen / Unknown Central Line / Unknown 06/14/2024 2:20 PM EST 06/14/2024 2:33 PM EST Scott Weldon MD LAB BLOOD ORDERABLES Fin al Result [facility] [address] [place] [address] * IRON SCREEN, INCLUDING TIBC (06/14/2024 2:20 PM EST) Iron 67 33 - 151 ug/dL 06/15/2024 1:09 AM EST LAB[facility]ORY [facility] Iron Binding Capacity 272 250 - 425 ug/dL 06/15/2024 1:09 AM EST LAB[facility]ATORY [facility] Transferrin Saturation Percent 25 15 - 55 % 06/15/2024 1:09 AM EST LAB[facility]ORY [facility] Blood Venous blood specimen / Unknown Central Line / Unknown 06/14/2024 2:20 PM EST 06/14/2024 2:33 PM EST Sunil Bourgeois MD LAB BLOOD ORDERABLES Final Res t Performing Organization Address City/[facility]/ZIP Co de Phone Number LABORATORY [facility] [address] [place] [address] * (ABNORMAL) FERRITIN (06/14/2024 2:20 PM EST) Ferritin 239(H) 13 - 150 ng/mL 06/15/2024 2:58 AM EST [facility]ORY [facility] Comment:Postmenopausal women have higher ferritin levels than pre-menopausal women. The above reference interval is based on pre-menopausal women. Blood Venous blood specimen / Unknown Central Line / Unknown 06/14/2024 2:20 PM EST 06/14/2024 2:33 PM EST Sunil Bourgeois MD LAB BLOOD ORDERABLES Final Res t Performing Organization Address City/[facility]/ZIP Co de Phone Number LABORATORY [facility] [address] [place] [address] documented in this encounter Visit Diagnoses Diagnosis Iron deficiency anemia due to chronic blood loss- Primary Iron deficiency anemia secondary to blood loss (chronic) Cirrhosis of liver without ascites, unspecified hepatic cirrhosis type (HCC) Iron deficiency anemia, unspecified iron deficiency anemia type Type 2 diabetes mellitus with hemoglobin A1c goal of less than 8.0% (HCC) documented in this encounter Administered Medications Inactive Administered Medications - up to 3 most recent administrations Medication Order MAR Action Action Date Dose Rate Site hEParin 100 UNIT/ML Lock Flush inj 500 Units 500 Units (5 mL), IV Lock, PRN Other, IV Flush, Starting on Thu06/14/24 at 1406, Until Thu06/14/24 at 2022, For 24 hours, Do not flush if lock, PICC, or central line not in place; IV infusing or unable to flush.Indications:Iron deficiency anemia due to chronic blood loss,Cirrhosis of liver without ascites, unspecified hepatic cirrhosis type (HCC) Given 06/14/2024 4:11 PM EST 500 Units Iron Sucrose (Venofer) 300 mg in NSS 250 mL ivpb 300 mg, IV Piggyback, ONCE, 1 dose, On Thu06/14/24 at 1545, Administer over 90 MinutesIndications:Iron deficiency anemia due to chronic blood loss,Cirrhosis of liver without ascites, unspecified hepatic cirrhosis type (HCC) Start Infusion 06/14/2024 2:31 PM EST 300 mg 180 mL/hr NSS infusion 500 mL, Intravenous, at 50 mL/hr, CONTINUOUS, Starting on Thu06/14/24 at 1515, Until Thu06/14/24 at 2022Indications:Iron deficiency anemia due to chronic blood loss,Cirrhosis of liver without ascites, unspecified hepatic cirrhosis type (HCC) Start Infusion 06/14/2024 2:27 PM EST 500 mL 50 mL/hr sodium chloride 0.9 % flush central line 10 mL 10 mL, IV Push, PRN Other, IV Flush, Starting on Thu06/14/24 at 1406, Until Thu06/14/24 at 202, For 24 hours, Do not flush if lock, PICC, or central line not in place; IV infusing or unable to flush.Indications:Iron deficiency anemia due to chronic blood loss,Cirrhosis of liver without ascites, unspecified hepatic cirrhosis type (HCC) Given 06/14/2024 4:11 PM EST 10 mL documented in this [...] Power of Attor narda? No Care Teams Display Designer Outside Relationship Specialty Start Date End Date Scott Weldon MD [address] [place] [address] PCP - General Family Medicine 08/03/18 documented as of this encounter
--- OUTSIDE RECORDS SUMMARY | 2024-09-10 21:18 | External Medical Summary | Summary of Care ---
Author Name Unknown Organization [facility] Address [address] [facility] [address] Phone [phone] Care Team Providers Care Media Center Specialist Name Role Phone Scott Weldon MD Primary Care Provider + Reason for Visit * Reason Onset Date Comments Test Results 08/05/2024 Encounter Details Date Type Department Care Team (Late st Contact Info) Description 08/05/2024 Telephone Gastroenterology, [facility] [address] [facility] [address] Adam Bradshaw CRNP [address] [facility] [address] Test Results Allergies Active Allergy Reactions Criticality Noted Date Comments Naproxen Sodium Bleeding High 11/29/2013 Pollen 12/03/2022 Seasonal Food (See Comments) Anaphylaxis High 04/20/2019 Hot peppers (oils) Kiwi Extract Anaphylaxis High 04/20/2019 documented as of this encounter (statuses as of 08/05/2024) Medications insulin glargine (LANTUS SOLOSTAR) 100 UNIT/ML [...] suspected opioid overdose. Seek immediate medical attention. [email or web address] 1 Each 3 11/28/19 23 Active NovoLIN [...] MG/DOSE)) Inject under the skin. Obtaining from [facility] Active Atorvastatin Calcium 40 MG Oral Tablet [...] as of this encounter (statuses as of 08/05/2024) Active Problems Problem Noted Date Diagnosed Date [...] as of this encounter (statuses as of 08/05/2024) Resolved Problems Problem Noted Date Diagnosed Date [...] as of this encounter (statuses as of 08/05/2024) Immunizations Name Administration Dates Next Due COVID-19 mRNA, LNP-s, No Pre serve, 2-Dose Series ([employer]) 11/08/2020,10/11/2020 HEP A - Hepatitis A (Adult > 18 yrs) 04/11/2011, 09/20/2010 Hepatitis B, 20+ yrs 07/05/2015 Pneumococcal Conjugate Vacci ne, 20-valent (Sstobgs98) 03/13/2023 Pneumococcal Polysaccharide PPV23 (Pneumovax) 02/19/2018,03/09/2007 Seasonal [...] encounter Miscellaneous Notes * Telephone Encounter - Jessie Upton CMA - 08/05/2024 9:55 AM EST Pt notified of ENTRY PROCESSOR note and voiced understanding. * Telephone Encounter - Jessie Upton CMA - 08/05/2024 9:54 AM EST ----- Message from Adam Bradshaw sent at 08/04/2024 4:53 PM EST ----- CT for cirrhosis, no focal liver lesions. documented in this encounter Plan of Treatment Upcoming Encounters Date Type Department Care Team (Late st Contact Info) Description 08/08/2024 1:30 PM EST Hem/Onc Treatment Hematology/Oncology Treatment, [place] [address] [place] [phone] Nora, Chair 11 Hem Onc Scenery [address] [place] [address] 08/09/2024 1:00 PM EST Telemedicine Nutrition, [facility] 132 [facility] [place] [address] Sharon Cabello, RDN [address] [facility] [place] [address] 08/11/2024 12:30 PM EST Telemedicine Psychiatry [facility] [address] [place] [address] Nhi Fritz CRNP [address] [place] [address] 08/12/2024 10:30 AM EST Office Visit Pharmacy, [facility]esh Regan [facility] [phone] [facility] [address] [place] [address] 09/08/2024 8:00 AM EDT Imaging [facility] 2nd Floor Cardiology, [place] 132 [facility] [place] [phone] 09/14/2024 2:00 PM EDT Office Visit Hematology/Oncology [facility] [place] [address] [place] [phone] Suinl Bourgeois MD [address] [place] [address] 09/15/2024 9:30 AM EDT Telemedicine Pharmacy, [facility] [address] [place] [address] [facility] [address] [place] [address] 09/29/2024 1:00 PM EDT Office Visit [facility] [address] [place] [address] Jadiel Epstein CRNP [address] [place] [address] 10/18/2024 2:20 PM EDT Telemedicine Hepatology, [place] [address] [place], [place] [phone] Enid Saldana [address] [place], [place] [phone] 12/14/2024 12:20 PM EDT Office Visit [facility] [address] [facility] [place] [address] Scott Weldon MD [address] [place] [address] 03/13/2025 2:00 PM EDT Office Visit Nephrology, [facility] [place] [address] Jonathan Mathew MD 200 [place] [address] 06/16/2025 11:40 AM EST Office Visit [facility] [address] [facility] [place] [address] Scott Weldon MD [address] [place] [address] Scheduled Procedures Name Priority Associated Diagnoses Date/Ti [...] this encounter Medical Devices Implanted Type Area Boring Mill Set Up Operator Device Identifier Shelf Expiration Date Model / Serial / Lot Neurostimul Intellis Adaptiv - [id number] - [id number] Implanted:Qty: 1 on 08/22/2022 by Rafia Small MD at OR [facility] [place] N/A: Spine Lumbar [employer] 06/21/2023 [id number] / [id number] / Description:battery Medtronic Lead Kit 60 Cm Implanted:Qty: 1 on 08/22/2022 by Rafia Small MD at OR [facility] N/A: Spine Lumbar 02/01/2026 [id number] / / [id number] Medtronic Lead Kit 60cm Implanted:Qty: 1 on 08/22/2022 by Rafia Small MD at OR [facility] N/A: Spine Lumbar 03/21/2026 [id number] / / [id number] Envelope Tyrx Med Antibacteril - [id number] Implanted:Qty: 1 on 08/22/2022 by Rafia Small MD at OR [facility] N/A: Spine Lumbar [employer] 03/10/2023 [id number] / / [id number] Hemostatic Clip Res 235cm - [id number] Implanted:Qty: 4 on 10/05/2023 by Aj Pruett DO at ENDOSCOPY [facility] [employer] : ENDOSCOPY 02/03/2026 [id number] / / Hemostatic Clip Res 235cm - [id number] Implanted:Qty: 1 on 10/05/2023 by Aj Pruett DO at ENDOSCOPY [facility] : ENDOSCOPY 02/02/2026 [id number] / / documented as of this encounter [...] Power of Attor narda? No Care Teams Media Center Specialist Relationship Specialty Start Date End Date Scott Weldon MD 132 [facility] [place] [address] PCP - General Family Medicine 08/03/18 documented as of this encounter
--- OUTSIDE RECORDS SUMMARY | 2024-09-10 21:18 | External Medical Summary | Summary of Care ---
Author Name Unknown Organization [facility] Address [address] [facility] [place] [address] Phone [phone] Care Team Providers Care Trolley Wire Installer Name Role Phone Scott Weldon MD Primary Care Provider + Reason for Visit * Reason Onset Date Comments Advice 07/25/2024 CT for cirrhosis Encounter Details Date Type Department Care Team (Late st Contact Info) Description 07/25/2024 Telephone Radiology [address] [place] [address] Tiffany Skinner, RT (R) Advice (CT for cirrhosis) Allergies Active Allergy Reactions Criticality Noted Date [...] 5 02/18/20 17 Active Insulin Infusion Pump (MINIMSemantra 630G INSULIN PUMP) KITIndications:Ty pe 2 diabetes [...] suspected opioid overdose. Seek immediate medical attention. [email or web address] 1 Each 3 11/28/19 23 Active NovoLIN [...] MG/DOSE)) Inject under the skin. Obtaining from [facility] Active Atorvastatin Calcium 40 MG Oral Tablet [...] Take 2 Tablets by mouth daily. Active Pregabalin 100 MG Oral Capsule (Lyrica)Indicatio ns:Bilateral low back pain with sciatica, sciatica laterality unspecified, unspecified chronicity Take 1 Capsule by mouth in the morning and 1 Capsule at noon and 1 Capsule before bedtime. 300 Capsule 1 4 4:07 PM EST 02/13/20 24 025 Disconti nued(Ref ill) documented as of [...] (09/03/2009): Per Obesity Taxonomy Coronary atherosclerosis of [place] coronary artery 09/15/2008 10/03/2008 Malaise and fatigue [...] yrs 07/05/2015 Pneumococcal Conjugate Vacci ne, 20-valent ([id number]) 03/13/2023 Pneumococcal Polysaccharide PPV23 (Pneumovax) 02/19/2018,03/09/2007 Seasonal [...] encounter Miscellaneous Notes * Telephone Encounter - Tiffany Skinner RT (R) - 07/25/2024 3:27 PM EST Ok. No contrast. Thanks. * Telephone Encounter - Tiffany Skinner RT (R) - 07/25/2024 12:37 PM EST Taz, Pt is scheduled for CT abd/pel wo IV contrast due to creatinine. If you want a CT abd/pel for cirrhosis, her creatinine is within limits. I would need you to changeCT to 4 phase liver. Pt scheduled for tomorrow. Pls let me know jamey. Thank you, Tiffany documented in this encounter Plan of Treatment Upcoming Encounters Date Type Department Care Team (Late st Contact Info) Description 07/29/2024 8:00 AM EST Imaging Radiology [facility] [address] [place] [address] 07/29/2024 8:45 AM EST Imaging Radiology [facility] 1st Floor, [place] [address] [facility] [place] [address] 08/08/2024 10:30 AM EST Hem/Onc Treatment Hematology/Oncology Treatment, [place] [address] [place] [address] 08/09/2024 1:00 PM EST Telemedicine Nutrition, [facility] 132 [facility] [place] [address] Sharon Cabello, RDN [address] [facility] [place] [address] 08/11/2024 12:30 PM EST Telemedicine Psychiatry [facility] [address] [place] [address] Nhi Fritz, NOEL [address] [place] [address] 08/12/2024 10:30 AM EST Office Visit Pharmacy, [facility] [address] [facility] [address] [place], [place] [address] [address] 09/08/2024 8:00 AM EDT Imaging [facility] 2nd Floor Cardiology, [place] 132 [facility] [place] [address] 09/14/2024 2:00 PM EDT Office Visit Hematology/Oncology [facility] [address] [place], [place] [phone] Sunil Bourgeois MD [address] [place], [place] [address] 09/15/2024 9:30 AM EDT Telemedicine Pharmacy, [facility] [address] [facility] [place] [address] 09/29/2024 1:00 PM EDT Office Visit [facility] [address] [facility] [place] [address] Jadiel Epstein CRNP 132 [facility] [address] 10/18/2024 2:20 PM EDT Telemedicine Hepatology, [place] [address] [place], [place] [phone] Enid Saldana [address] [place], [place] [address] 12/14/2024 12:20 PM EDT Office Visit [facility] [address] [facility] [place] [address] Scott Weldon MD 132 [facility] [place] [address] 03/13/2025 2:00 PM EDT Office Visit Nephrology, [facility] [address] [place], [place] [address] Jonathan Mathew MD [address] [place] [address] 06/16/2025 11:40 AM EST Office Visit [facility] 132 [facility] [place] [address] Scott Weldon MD [address] [place] [address] Scheduled Procedures Name Priority Associated Diagnoses Date/Ti [...] Medical Devices Implanted Type Area Sales And Support Center Agent Device Identifier Shelf Expiration Date Model / Serial / Lot Neurostimul Intellis Adaptiv - [id number] - [id number] Implanted:Qty: 1 on 08/22/2022 by Rafia Small MD at OR [facility] N/A: Spine Lumbar [employer] 06/21/2023 [id number] / [id number] / Description:battery Medtronic Lead Kit 60 Cm Implanted:Qty: 1 on 08/22/2022 by Rafia Small MD at OR [facility] N/A: Spine Lumbar 02/01/2026 [id number] / / [id number] Medtronic Lead Kit 60cm Implanted:Qty: 1 on 08/22/2022 by Rafia Small MD at OR [facility] N/A: Spine Lumbar 03/21/2026 [id number] / / [id number] Envelope Tyrx Med Antibacteril - [id number] Implanted:Qty: 1 on 08/22/2022 by Rafia Small MD at OR [facility] N/A: Spine Lumbar [employer] 03/10/2023 [id number] / / [id number] Hemostatic Clip Res 235cm - [id number] Implanted:Qty: 4 on 10/05/2023 by Aj Pruett, DO at ENDOSCOPY [facility] 02/03/2026 [id number] / / Hemostatic Clip Res 235cm - [id number] Implanted:Qty: 1 on 10/05/2023 by Aj Pruett, DO at [facility]COPY [facility] : ENDOSCOPY 02/02/2026 [id number] / / documented as of this encounter [...] Power of Attor narda? No Care Teams Trolley Wire Installer Relationship Specialty Start Date End Date Scott Weldon MD 132 [facility] [place] [address] PCP - General Family Medicine 08/03/18 documented as of this encounter
--- OUTSIDE RECORDS SUMMARY | 2024-09-10 21:18 | External Medical Summary | Summary of Care ---
Author Name Unknown Organization [facility] Address [address] [facility] [place] [address] Phone [phone] Care Team Providers Care Instrument Repair Technician Name Role Phone Scott Weldon MD Primary Care Provider + Reason for Visit * Reason Onset Date Comments Advice 07/25/2024 CT for cirrhosis Encounter Details Date Type Department Care Team (Late st Contact Info) Description 07/25/2024 Telephone Radiology [address] [place] [address] Tiffany Skinner, RT (R) Advice (CT for cirrhosis) Allergies Active Allergy Reactions Criticality Noted Date Comments Naproxen Sodium Bleeding High 11/29/2013 Pollen 12/03/2022 Seasonal Food (See Comments) Anaphylaxis High 04/20/2019 Hot peppers (oils) Kiwi Extract Anaphylaxis High 04/20/2019 documented as of this encounter (statuses as of 07/25/2024) Medications insulin glargine (LANTUS SOLOSTAR) 100 UNIT/ML [...] 5 02/18/20 17 Active Insulin Infusion Pump (MINIMToutApp 630G INSULIN PUMP) KITIndications:Ty pe 2 diabetes [...] suspected opioid overdose. Seek immediate medical attention. [email or web address]/watch?v=[email or web address] 1 Each 3 11/28/19 23 Active NovoLIN [...] MG/DOSE)) Inject under the skin. Obtaining from NovoNordVudu Active Atorvastatin Calcium 40 MG Oral Tablet [...] as of this encounter (statuses as of 07/25/2024) Active Problems Problem Noted Date Diagnosed Date [...] as of this encounter (statuses as of 07/25/2024) Resolved Problems Problem Noted Date Diagnosed Date [...] (09/03/2009): Per Obesity Taxonomy Coronary atherosclerosis of [place] coronary artery 09/15/2008 10/03/2008 Malaise and fatigue [...] as of this encounter (statuses as of 07/25/2024) Immunizations Name Administration Dates Next Due COVID-19 mRNA, LNP-s, No Pre serve, 2-Dose Series (Pfizer) 11/08/2020,10/11/2020 HEP A - Hepatitis A (Adult > 18 yrs) 04/11/2011, 09/20/2010 Hepatitis B, 20+ yrs 07/05/2015 Pneumococcal Conjugate Vacci ne, 20-valent ([id number]) 03/13/2023 Pneumococcal Polysaccharide PPV23 (Pneumovax) 02/19/2018,03/09/2007 Seasonal [...] Description 07/29/2024 8:00 AM EST Imaging Radiology [facility] [address] [place] [address] 07/29/2024 8:45 AM EST Imaging Radiology [facility] 1st Floor, [place] [address] [place] [address] 08/08/2024 10:30 AM EST Hem/Onc Treatment Hematology/Oncology Treatment, [place] [address] [place] [address] 08/09/2024 1:00 PM EST Telemedicine Nutrition, [facility] 132 [facility] [place] [address] Sharon Cabello, RDN [address] [place] [address] 08/11/2024 12:30 PM EST Telemedicine Psychiatry [facility] 68 [place] [address] Nhi Fritz, NOEL [address] [place] [address] 08/12/2024 10:30 AM EST Office Visit [facility], [facility] [address] [facility] [address] [place], [place] [address] [address] 09/08/2024 8:00 AM EDT Imaging [facility] II 2nd Floor Cardiology, [place] 132 [facility] [place] [address] 09/14/2024 2:00 PM EDT Office Visit Hematology/Oncology [facility] [address] [place], [place] [phone] Sunil Bourgeois MD [address] [place], [place] [address] 09/15/2024 9:30 AM EDT Telemedicine Pharmacy, [facility] [address] [facility] 132 [facility] [place] [address] 09/29/2024 1:00 PM EDT Office Visit [facility] 132 [facility] [place] [address] Jadiel Epstein CRNP 132 [facility] [place] [address] 10/18/2024 2:20 PM EDT Telemedicine Hepatology, [place] [address] [place], [place] [phone] Enid Saldana [address] [place], [place] [phone] 12/14/2024 12:20 PM EDT Office Visit [facility] 132 [facility] [place] [address] Scott Weldon MD 132 [facility] [place] [address] 03/13/2025 2:00 PM EDT Office Visit Nephrology, [facility] [address] [place], [place] [address] Jonathan Mathew MD [address] [place] [address] 06/16/2025 11:40 AM EST Office Visit [facility] 132 [facility] [place] [address] Scott Weldon MD [address] [place] [address] Scheduled Procedures Name Priority Associated Diagnoses Date/Ti [...] this encounter Medical Devices Implanted Type Area Agent Device Identifier Shelf Expiration Date Model / Serial / Lot Neurostimul Intellis Adaptiv - [id number] - [id number] Implanted:Qty: 1 on 08/22/2022 by Rafia Small MD at OR [facility] N/A: Spine Lumbar [employer] 06/21/2023 [id number] / [id number] / Description:battery Medtronic Lead Kit 60 Cm Implanted:Qty: 1 on 08/22/2022 by Rafia Small MD at OR [facility] N/A: Spine Lumbar 02/01/2026 [id number] / / [id number] Medtronic Lead Kit 60cm Implanted:Qty: 1 on 08/22/2022 by Rafia Small MD at OR [facility] N/A: Spine Lumbar 03/21/2026 [id number] / / [id number] Envelope Tyrx Med Antibacteril - [id number] Implanted:Qty: 1 on 08/22/2022 by Rafia Small MD at OR [facility] N/A: Spine Lumbar [employer] 03/10/2023 [id number] / / [id number] Hemostatic Clip Res 235cm - [id number] Implanted:Qty: 4 on 10/05/2023 by Aj Pruett, DO at ENDOSCOPY [facility] : END[facility]COPY 02/03/2026 [id number] / / Hemostatic Clip Res 235cm - [id number] Implanted:Qty: 1 on 10/05/2023 by Aj Pruett, DO at END[facility] : [facility]OS[facility] 02/02/2026 [id number] / / documented as of this encounter [...] of Attor narda? No Care Teams Instrument Repair Technician Relationship Specialty Start Date End Date Scott Weldon MD 132 [facility] [place] [address] PCP - General Family Medicine 08/03/18 documented as of this encounter
--- OUTSIDE RECORDS SUMMARY | 2024-09-10 21:19 | External Medical Summary | Summary of Care ---
Author Name Unknown Organization [facility] Address [address] [facility] [address] Phone [phone] Care Team Providers Care Employee Wellness/Fitness Coordinator Name Role Phone Scott Weldon MD Primary Care Provider + Reason for Visit * Reason Onset Date Comments Precert In Process 2024 06 Rosales PingStampmelania Eszopiclone 2MG Encounter Details Date Type Department Care Team ([facility] st Contact Info) Description 2024 Telephone Psychiatry [facility] [address] [place] [address] Nhi Fritz CRNP [address] [place] [address] Precert In Process ( Rosales Odonnell... Allergies Active Allergy Reactions Criticality Noted Date Comments Naproxen Sodium Bleeding High 11/29/2013 Pollen 12/03/2022 Seasonal Food (See Comments) Anaphylaxis High 04/20/2019 Hot peppers (oils) Kiwi Extract Anaphylaxis High 04/20/2019 documented as of this encounter (statuses as of 07/14/2024) Medications insulin glargine (LANTUS SOLOSTAR) 100 UNIT/ML [...] 5 02/18/20 17 Active Insulin Infusion Pump (MINIMLookingglass Cyber Solutions 630G INSULIN PUMP) KITIndications:Typ e 2 [...] suspected opioid overdose. Seek immediate medical attention. [email or web address]/watch?v=[email or web address] 1 Each 3 11/28/19 23 Active NovoLIN [...] MG/DOSE)) Inject under the skin. Obtaining from [employer] Active Atorvastatin Calcium 40 MG Oral Tablet [...] Take 2 Tablets by mouth daily. Active documented as of this encounter (statuses as of 07/14/2024) Active Problems Problem Noted Date Diagnosed Date [...] as of this encounter (statuses as of 07/14/2024) Resolved Problems Problem Noted Date Diagnosed Date [...] (09/03/2009): Per Obesity Taxonomy Coronary atherosclerosis of [place] [...] as of this encounter (statuses as of 07/14/2024) Immunizations Name Administration Dates Next Due COVID-19 mRNA, LNP-s, No Pre serve, 2-Dose Series (Pfizer) 11/08/2020,10/11/2020 HEP A - Hepatitis A (Adult > 18 yrs) 04/11/2011, 09/20/2010 Hepatitis B, 20+ yrs 07/05/2015 Pneumococcal Conjugate Vacci ne, 20-valent ([id number]) 03/13/2023 Pneumococcal Polysaccharide PPV23 (Pneumovax) 02/19/2018,03/09/2007 Seasonal [...] encounter Miscellaneous Notes * Telephone Encounter - Yelitza Larson OSA - 07/14/2024 8:38 AM EST [facility] Authorization Submission Submission Information: Medication: Eszopiclone 2MG tablets Portal used: [facility] Insurance: [id number] Authorization #/Duque: [id number] [place] Yelitza Larson Medication Development Associate [facility] 07/14/24,8:37 AM * Telephone Encounter - Marily Hopkins LPN - 2024 7:51 AM EST Psychiatry Pre-Cert Request Medication/Disease State Information: Medication: Eszopiclone 2 MG Oral Tablet (Lunesta) Diagnosis (including ICD-10): G47.00 Medication(s) Tried/Failed/Contraindicated: [place]("I was afraid of it because of blood work"), wellbutirn("I didn't like it, it made anxiety worse") , xanax, duloxetine, zoloft, gabapentin(h/o psuedo sz ), ativan (while IP), seroquel, effexor, depakote, celexa, restoril See corresponding visit note(s) for additional supporting clinical information. Office Information: Prescriber: Nhi Fritz CRNP SIG Take 1 Tablet by mouth at bedtime. PDMP 07/07/24 documented in this encounter Plan of Treatment Upcoming Encounters Date Type Department Care Team (Late st Contact Info) Description 07/19/2024 8:30 AM EST Imaging Radiology [facility], [place] [address] [place] [address] 07/19/2024 9:30 AM EST Imaging Radiology [facility] 1st Floor, [place] [address] [place] [address] 07/20/2024 10:00 AM EST Imaging [facility] II 2nd Floor Cardiology, [place] [address] [place] [address] 08/08/2024 10:30 AM EST Hem/Onc Treatment Hematology/Oncology Treatment, [place] [address] [place] [address] 08/09/2024 1:00 PM EST Telemedicine Nutrition, [facility] 132 [facility] [place] [address] Sharon Cabello, HUBERT [address] [place] [address] 08/11/2024 12:30 PM EST Telemedicine Psychiatry [facility] [address] [place] [address] Nhi Fritz CRNP [address] [place] [address] 08/12/2024 10:30 AM EST Office Visit Pharmacy, [facility] 226 [place] [address] [address] [address] 09/14/2024 2:00 PM EDT Office Visit Hematology/Oncology [facility] 200 [facility] [place] [address] Sunil Bourgeois MD 200 [facility] [place] [address] 09/15/2024 9:30 AM EDT Telemedicine Pharmacy, [facility] 132 [facility] [address] [facility] [address] [facility] [place] [address] 09/29/2024 1:00 PM EDT Office Visit Family Practice [facility] [address] Josué [facility] SAENZ [address] Jadiel Epstein CRNP [address] [place] [address] 10/18/2024 2:20 PM EDT Telemedicine Hepatology, [place] [address] [place], [place] [phone] Enid Saldana DO [address] [place] [address] 12/14/2024 12:20 PM EDT Office Visit [facility] [address] [place] [address] Scott Weldon MD [address] [email or web address] [place] [address] 03/13/2025 2:00 PM EDT Office Visit Nephrology, [facility] 200 [facility] [place] [address] Jonathan Mathew MD 200 [facility] [place] [address] 06/16/2025 11:40 AM EST Office Visit [facility] [address] [place] [address] Scott Weldon MD [facility] [place] [address] Scheduled Procedures Name Priority Associated Diagnoses Date/Ti [...] this encounter Medical Devices Implanted Type Area Poultry Cleaner Device Identifier Shelf Expiration Date Model / Serial / Lot Neurostimul Intellis Adaptiv - [id number] - [id number] Implanted:Qty: 1 on 08/22/2022 by Rafia Small MD at OR [facility] N/A: Spine Lumbar [employer] 06/21/2023 [id number] / [id number] / Description:battery Medtronic Lead Kit 60 Cm Implanted:Qty: 1 on 08/22/2022 by Rafia Small MD at OR [facility] N/A: Spine Lumbar 02/01/2026 [id number] / / [id number] Medtronic Lead Kit 60cm Implanted:Qty: 1 on 08/22/2022 by Rafia Small MD at OR [facility] N/A: Spine Lumbar 03/21/2026 [id number] / / [id number] Envelope Tyrx Med Antibacteril - [id number] Implanted:Qty: 1 on 08/22/2022 by Rafia Small MD at OR [facility] N/A: Spine Lumbar [employer] 03/10/2023 [id number] / / [id number] Hemostatic Clip Res 235cm - [id number] Implanted:Qty: 4 on 10/05/2023 by Aj Pruett DO at ENDOSCOPY [facility] : ENDOSCOPY 02/03/2026 [id number] / / Hemostatic Clip Res 235cm - [id number] Implanted:Qty: 1 on 10/05/2023 by Aj Pruett DO at ENDOSCOPY [facility] : ENDOSCOPY 02/02/2026 [id number] / / documented as of this encounter [...] Power of Attor narda? No Care Teams Employee Wellness/Fitness Coordinator Relationship Specialty Start Date End Date Scott Weldon MD [address] [place] [address] PCP - General Family Medicine 08/03/18 documented as of this encounter
--- OUTSIDE RECORDS SUMMARY | 2024-09-10 21:19 | External Medical Summary | Summary of Care ---
Author Name Unknown Organization [facility] Address 100 [facility] KALLI [facility] [address] Phone [phone] Care Team Providers Care Basket Mender Name Role Phone Scott Weldon MD Primary Care Provider + Reason for Visit * Reason Onset Date Comments Precert In Process 2024 06 Rosales TappnGomelania Eszopiclone 2MG Encounter Details Date Type Department Care Team ([facility] st Contact Info) Description 2024 Telephone Psychiatry [facility] [address] [place] [address] Nhi Fritz CRNP [address] [place] [address] Precert In Process (06 Rosales Odonnell... Allergies Active Allergy Reactions Criticality Noted Date Comments Naproxen Sodium Bleeding High 11/29/2013 Pollen 12/03/2022 Seasonal Food (See Comments) Anaphylaxis High 04/20/2019 Hot peppers (oils) Kiwi Extract Anaphylaxis High 04/20/2019 documented as of this encounter (statuses as of 07/18/2024) Medications insulin glargine (LANTUS SOLOSTAR) 100 UNIT/ML [...] 5 02/18/20 17 Active Insulin Infusion Pump (MINIMZootcard 630G INSULIN PUMP) KITIndications:Typ e 2 diabetes [...] suspected opioid overdose. Seek immediate medical attention. [email or web address]?v=[email or web address] 1 Each 3 11/28/19 23 Active NovoLIN R ReliOn 100 UNIT/ML Injection Solution (insulin REGULAR human)Indications: Type 2 diabetes mellitus with hemoglobin A1c goal of less than 8.0% ([facility]),DM type 2, not at goal ([facility]) INJECT UP TO 200 [...] MG/DOSE)) Inject under the skin. Obtaining from Diabetica Active Atorvastatin Calcium 40 MG Oral Tablet [...] as of this encounter (statuses as of 07/18/2024) Active Problems Problem Noted Date Diagnosed Date [...] benign. 09/29 colon + polyps PATH benign. Kirshna 5y per GI. EGD Grade II esoph [...] as of this encounter (statuses as of 07/18/2024) Resolved Problems Problem Noted Date Diagnosed Date [...] (09/03/2009): Per Obesity Taxonomy Coronary atherosclerosis of [place] coronary artery 09/15/2008 10/03/2008 Malaise and fatigue [...] as of this encounter (statuses as of 07/18/2024) Immunizations Name Administration Dates Next Due COVID-19 mRNA, LNP-s, No Pre serve, 2-Dose Series (Pfizer) 11/08/2020,10/11/2020 HEP A - Hepatitis A (Adult > 18 yrs) 04/11/2011, 09/20/2010 Hepatitis B, 20+ yrs 07/05/2015 Pneumococcal Conjugate Vacci ne, 20-valent ([id number]) 03/13/2023 Pneumococcal Polysaccharide PPV23 (Pneumovax) 02/19/2018,03/09/2007 Seasonal [...] Larson OSA - 07/14/2024 8:38 AM EST [facility] Authorization Submission Submission Information: Medication: Eszopiclone 2MG tablets Portal used: [facility] Insurance: [employer] Authorization #/Duque: [id number] [place] Yelitza Larson Medication Casino Cage Supervisor [facility] 07/14/24,8:37 AM * Telephone Encounter - Marily Hopkins LPN - 2024 7:51 AM EST Psychiatry Pre-Cert Request Medication/Disease State Information: Medication: Eszopiclone 2 MG Oral Tablet (Lunesta) Diagnosis (including ICD-10): G47.00 Medication(s) Tried/Failed/Contraindicated: [place]("I was afraid of it because of blood [...] Description 07/19/2024 8:30 AM EST Imaging Radiology [facility], [place] [address] [place] [address] 07/19/2024 9:30 AM EST Imaging Radiology [facility] 1st Floor, [place] [address] [place] [address] 07/20/2024 10:[address] [facility] 2nd Floor Cardiology, [place] [address] [place] [address] 08/08/2024 10:30 AM EST Hem/Onc Treatment Hematology/Oncology Treatment, [place] [address] [place] [address] 08/09/2024 1:00 PM EST Telemedicine Nutrition, [facility] 132 [facility] [place] [address] Sharon Cabello, HUBERT [address] [place] [address] 08/11/2024 12:30 PM EST Telemedicine Psychiatry [facility] [address] [place] [address] Nhi Fritz CRNP [address] [place] [address] 08/12/2024 10:30 AM EST Office Visit Pharmacy, [facility] [address] [place] [phone] [address] [address] 09/14/2024 2:00 PM EDT Office Visit Hematology/Oncology [facility] 200 [facility] [place] [phone] Sunil Bourgeois MD 200 [facility] [place] [address] 09/15/2024 9:30 AM EDT Telemedicine Pharmacy, [facility] 132 [facility] [address] [facility] [address] [place] [address] 09/29/2024 1:00 PM EDT Office Visit Family Practice [facility] [address] Josué [facility] [place] [address] Jadiel Epstein CRNP [address] [place] [address] 10/18/2024 2:20 PM EDT Telemedicine Hepatology, [place] [address] [place], [place] [phone] Enid Saldana DO [address] [place] [address] 12/14/2024 12:20 PM EDT Office Visit [facility] [address] [place] [address] Scott Weldon MD [address] [facility] [place] [address] 03/13/2025 2:00 PM EDT Office Visit Nephrology, [facility] 200 [facility] [place] [address] Jonathan Mathew MD 200 [facility] [place] [address] 06/16/2025 11:40 AM EST Office Visit [facility] [address] [place] [address] Scott Weldon MD [facility] [place] [address] Scheduled Procedures Name Priority Associated Diagnoses Date/Ti [...] this encounter Medical Devices Implanted Type Area Groundman Device Identifier Shelf Expiration Date Model / Serial / Lot Neurostimul Intellis Adaptiv - [id number] - [id number] Implanted:Qty: 1 on 08/22/2022 by Rafia Small MD at OR [facility] N/A: Spine Lumbar [employer] 06/21/2023 [id number] / [id number] / Description:battery Medtronic Lead Kit 60 Cm Implanted:Qty: 1 on 08/22/2022 by Rafia Small MD at OR [facility] N/A: Spine Lumbar 02/01/2026 [id number] / / [id number] Medtronic Lead Kit 60cm Implanted:Qty: 1 on 08/22/2022 by Rafia Small MD at OR [facility] N/A: Spine Lumbar 03/21/2026 [id number] / / [id number] Envelope Tyrx Med Antibacteril - [id number] Implanted:Qty: 1 on 08/22/2022 by Rafia Small MD at OR [facility] N/A: Spine Lumbar [employer] 03/10/2023 [id number] / / [id number] Hemostatic Clip Res 235cm - [id number] Implanted:Qty: 4 on 10/05/2023 by Aj Pruett DO at ENDOSCOPY [facility] : ENDOSCOPY 02/03/2026 [id number] / / Hemostatic Clip Res 235cm - [id number] Implanted:Qty: 1 on 10/05/2023 by Aj Pruett DO at ENDOSCOPY [facility] : ENDOSCOPY 02/02/2026 [id number] / / documented as of this encounter [...] Power of Attor narda? No Care Teams Basket Mender Relationship Specialty Start Date End Date Scott Weldon MD [address] [place] [address] PCP - General Family Medicine 08/03/18 documented as of this encounter
--- OUTSIDE RECORDS SUMMARY | 2024-09-10 21:19 | External Medical Summary | Summary of Care ---
Author Name Unknown Organization [facility] Address 100 [facility] KALLI [place] [address] Phone [phone] Care Team Providers Care Electrical Timing Device Calibrator Name Role Phone Scott Weldon MD Primary Care Provider + Reason for Visit * Reason Onset Date Comments Precert Denied 2024 Eszopiclone 2MG Encounter Details Date Type Department Care Team ([facility] st Contact Info) Description 2024 Telephone Psychiatry [facility] [address] [place] [address] Nhi Fritz CRNP [address] [place] [address] Precert Denied (Eszopiclone 2MG) Allergies Active Allergy Reactions Criticality Noted Date Comments Naproxen Sodium Bleeding High 11/29/2013 Pollen 12/03/2022 Seasonal Food (See Comments) Anaphylaxis High 04/20/2019 Hot peppers (oils) Kiwi Extract Anaphylaxis High 04/20/2019 documented as of this encounter (statuses as of 07/19/2024) Medications insulin glargine (LANTUS SOLOSTAR) 100 UNIT/ML [...] 5 02/18/20 17 Active Insulin Infusion Pump (MINIMOn-Ramp Wireless 630G INSULIN PUMP) KITIndications:Typ e 2 diabetes [...] suspected opioid overdose. Seek immediate medical attention. [email or web address]://[email or web address]?v=[email or web address] 1 Each 3 11/28/19 23 Active NovoLIN [...] MG/DOSE)) Inject under the skin. Obtaining from Runa Active Atorvastatin Calcium 40 MG Oral Tablet [...] as of this encounter (statuses as of 07/19/2024) Active Problems Problem Noted Date Diagnosed Date [...] as of this encounter (statuses as of 07/19/2024) Resolved Problems Problem Noted Date Diagnosed Date [...] (09/03/2009): Per Obesity Taxonomy Coronary atherosclerosis of [place] coronary artery 09/15/2008 10/03/2008 Malaise and fatigue [...] as of this encounter (statuses as of 07/19/2024) Immunizations Name Administration Dates Next Due COVID-19 mRNA, LNP-s, No Pre serve, 2-Dose Series (Pfizer) 11/08/2020,10/11/2020 HEP A - Hepatitis A (Adult > 18 yrs) 04/11/2011, 09/20/2010 Hepatitis B, 20+ yrs 07/05/2015 Pneumococcal Conjugate Vacci ne, 20-valent (Cmfbjfp94) 03/13/2023 Pneumococcal Polysaccharide PPV23 (Pneumovax) 02/19/2018,03/09/2007 Seasonal [...] encounter Miscellaneous Notes * Telephone Encounter - Marily Hopkins LPN - 07/19/2024 11:40 AM EST Images from the original note were not included. * Telephone Encounter - Yelitza Larson OSA - 07/14/2024 8:38 AM EST [facility] Authorization Submission Submission Information: Medication: Eszopiclone 2MG tablets Portal used: [facility] Insurance: [employer] Authorization #/Duque: [id number] DEBORAH Yelitza Larson Medication Parks Recreation Coordinator [facility] 07/14/24,8:37 AM * Telephone Encounter - Marily Hopkins LPN - 2024 7:51 AM EST Psychiatry Pre-Cert Request Medication/Disease State Information: Medication: Eszopiclone 2 MG Oral Tablet (Lunesta) Diagnosis (including ICD-10): G47.00 Medication(s) Tried/Failed/Contraindicated: [place]("I was afraid of it because of blood [...] Upcoming Encounters Date Type Department Care Team ([facility] st Contact Info) Description 08/08/2024 10:30 AM EST Hem/Onc Treatment Hematology/Oncology Treatment, [place] [address] [place] [address] 08/09/2024 1:00 PM EST Telemedicine [place], Keith Rose [address] [place] [address] Sharon Cabello RDN [address] [place] [address] 08/11/2024 12:30 PM EST Telemedicine Psychiatry [facility] 68 [facility] [place]el [address] Nhi Fritz CRNP [address] [place] [address] 08/12/2024 10:30 AM EST Office Visit Pharmacy, [facility] [address] [place] [phone] [address] [address] 09/14/2024 2:00 PM EDT Office Visit Hematology/Oncology [facility] 200 [facility] [place] [address] Sunil Bourgeois MD 200 [facility] [place] [address] 09/15/2024 9:30 AM EDT Telemedicine Pharmacy, [facility] 132 [facility] [address] [facility] 132 [place] [address] 09/29/2024 1:00 PM EDT Office Visit [facility] 132 [facility] [address] Jadiel Epstein CRNP 132 [facility] [address] 10/18/2024 2:20 PM EDT Telemedicine Hepatology, [place] [employer] [address] [place], [place] [phone] Enid Saldana DO [address] [place] [address] 12/14/2024 12:20 PM EDT Office Visit [facility] 132 [facility] [address] Scott Weldon MD [address] [place] [address] 03/13/2025 2:00 PM EDT Office Visit Nephrology, [place]oney Melendez 200 [facility] [place] [address] Jonathan Mathew MD 200 [facility] [place] [address] 06/16/2025 11:40 AM EST Office Visit Family Practice [facility] [address] [place] [address] Scott Weldon MD [address] [place] [address] Scheduled Procedures Name Priority Associated Diagnoses Date/Ti [...] this encounter Medical Devices Implanted Type Area Molasses Coloring Operator Device Identifier Shelf Expiration Date Model / Serial / Lot Neurostimul Intellis Adaptiv - [id number] - [id number] Implanted:Qty: 1 on 08/22/2022 by Rafia Small MD at OR [facility] N/A: Spine Lumbar [employer] 06/21/2023 [id number] / [id number] / Description:battery Medtronic Lead Kit 60 Cm Implanted:Qty: 1 on 08/22/2022 by Rafia Small MD at OR [facility] N/A: Spine Lumbar 02/01/2026 [id number] / / [id number] Medtronic Lead Kit 60cm Implanted:Qty: 1 on 08/22/2022 by Rafia Small MD at OR [facility] N/A: Spine Lumbar 03/21/2026 [id number] / / [id number] Envelope Tyrx Med Antibacteril - [id number] Implanted:Qty: 1 on 08/22/2022 by Rafia Small MD at OR [facility] N/A: Spine Lumbar [employer] 03/10/2023 [id number] / / [id number] Hemostatic Clip Res 235cm - [id number] Implanted:Qty: 4 on 10/05/2023 by Aj Pruett DO at ENDOSCOPY [facility] : ENDOSCOPY 02/03/2026 [id number] / / Hemostatic Clip Res 235cm - [id number] Implanted:Qty: 1 on 10/05/2023 by Aj Pruett DO at ENDOSCOPY [facility] : ENDOSCOPY 02/02/2026 [id number] / / documented as of this encounter [...] Power of Attor narda? No Care Teams Electrical Timing Device Calibrator Relationship Specialty Start Date End Date Scott Weldon MD [address] [address] PCP - General Family Medicine 08/03/18 documented as of this encounter
--- OUTSIDE RECORDS SUMMARY | 2024-09-10 21:19 | External Medical Summary | Summary of Care ---
Author Name Unknown Organization [facility] Address 100 [facility] [place] [address] Phone [phone] Care Team Providers Care Lead Fire Protection Engineer Name Role Phone Scott Weldon MD Primary Care Provider + Reason for Visit * Reason Onset Date Comments Precert Denied 2024 Eszopiclone 2MG Encounter Details Date Type Department Care Team ([facility] st Contact Info) Description 2024 Telephone Psychiatry [facility] [address] [place] [address] Nhi Fritz CRNP [address] [place] [address] Precert Denied (Eszopiclone 2MG) Allergies [...] 5 02/18/20 17 Active Insulin Infusion Pump (MINIMZeeVee 630G INSULIN PUMP) KITIndications:Typ e 2 diabetes [...] suspected opioid overdose. Seek immediate medical attention. [email or web address]?v=[email or web address] 1 Each 3 11/28/19 23 Active NovoLIN [...] MG/DOSE)) Inject under the skin. Obtaining from DescribeMe Active Atorvastatin Calcium 40 MG Oral Tablet [...] Per Obesity Taxonomy Coronary atherosclerosis of [place] coronary artery 09/15/2008 10/03/2008 Malaise and fatigue [...] yrs 07/05/2015 Pneumococcal Conjugate Vacci ne, 20-valent (Bzyjssl27) 03/13/2023 Pneumococcal Polysaccharide PPV23 (Pneumovax) 02/19/2018,03/09/2007 Seasonal [...] of Assessment Author No 04/20/2019 10:25 AM Tersea Gonzalez LPN * Do you have serious [...] Larson OSA - 07/14/2024 8:38 AM EST [facility] Authorization Submission Submission Information: Medication: Eszopiclone 2MG tablets Portal used: [facility] Insurance: [employer] Authorization #/Duque: [id number] DEBORAH Yelitza Larson Medication Family Dinner Service Specialist [facility] Hub 07/14/24,8:37 AM * Telephone Encounter - Marily Hopkins LPN - 2024 7:51 AM EST Psychiatry Pre-Cert Request Medication/Disease State Information: Medication: Eszopiclone 2 MG Oral Tablet (Lunesta) Diagnosis (including ICD-10): G47.00 Medication(s) Tried/Failed/Contraindicated: [place]("I was afraid of it because of blood [...] Upcoming Encounters Date Type Department Care Team ([facility] st Contact Info) Description 08/08/2024 10:30 AM EST Hem/Onc Treatment Hematology/Oncology Treatment, [place] [address] [place] [address] 08/09/2024 1:00 PM EST Telemedicine [place], Keith Rose [address] [place] [address] Sharon Cabello RDN [address] [place] [address] 08/11/2024 12:30 PM EST Telemedicine Psychiatry [facility] 68 [facility] noel [address] Nhi Fritz CRNP [address] [place] [address] 08/12/2024 10:30 AM EST Office Visit Pharmacy, [facility] [address] [place] [phone] [address] [address] 09/14/2024 2:00 PM EDT Office Visit Hematology/Oncology [facility] 200 [facility] [place] [address] Sunil Bourgeois MD 200 [facility] [place] [address] 09/15/2024 9:30 AM EDT Telemedicine Pharmacy, [facility] 132 [facility] [address] [facility] 132 [place] [address] 09/29/2024 1:00 PM EDT Office Visit [facility] 132 [facility] [address] Jadiel Epstein CRNP 132 [facility] [address] 10/18/2024 2:20 PM EDT Telemedicine Hepatology, [place] [address] [place], [place] [address] Enid Saldana DO [address] [place] [address] 12/14/2024 12:20 PM EDT Office Visit [facility] 132 [facility] [place] [address] Scott Weldon MD [address] [place] [address] 03/13/2025 2:00 PM EDT Office Visit Nephrology, Roney Melendez 200 [facility] [place] [address] Jonathan Mathew MD 200 [facility] [place] [address] 06/16/2025 11:40 AM EST Office Visit Family Practice [facility] [address] [place] [address] Scott Weldon MD [address] [place] [address] Scheduled Procedures Name Priority Associated Diagnoses Date/Ti [...] this encounter Medical Devices Implanted Type Area Neuroscience Specialist Device Identifier Shelf Expiration Date Model / Serial / Lot Neurostimul Intellis Adaptiv - [id number] - [id number] Implanted:Qty: 1 on 08/22/2022 by Rafia Small MD at OR [facility] N/A: Spine Lumbar [employer] 06/21/2023 [id number] / [id number] / Description:battery Medtronic Lead Kit 60 Cm Implanted:Qty: 1 on 08/22/2022 by Rafia Small MD at OR [facility] N/A: Spine Lumbar 02/01/2026 [id number] / / [id number] Medtronic Lead Kit 60cm Implanted:Qty: 1 on 08/22/2022 by Rafia Small MD at OR [facility] N/A: Spine Lumbar 03/21/2026 [id number] / / [id number] Envelope Tyrx Med Antibacteril - [id number] Implanted:Qty: 1 on 08/22/2022 by Rafia Small MD at OR [facility] N/A: Spine Lumbar [employer] 03/10/2023 [id number] / / [id number] Hemostatic Clip Res 235cm - [id number] Implanted:Qty: 4 on 10/05/2023 by Aj Pruett DO at ENDOSCOPY [facility] : ENDOSCOPY 02/03/2026 [id number] / / Hemostatic Clip Res 235cm - [id number] Implanted:Qty: 1 on 10/05/2023 by Aj Pruett DO at ENDOSCOPY [facility] : ENDOSCOPY 02/02/2026 [id number] / / documented as of this encounter [...] Power of Attor narda? No Care Teams Lead Fire Protection Engineer Relationship Specialty Start Date End Date Scott Weldon MD [address] [address] PCP - General Family Medicine 08/03/18 documented as of this encounter
--- OUTSIDE RECORDS SUMMARY | 2024-09-10 21:19 | External Medical Summary | Summary of Care ---
Author Name Unknown Organization [facility] Address [address] [facility] [place] [address] Phone [phone] Care Team Providers Care Lens Hardener Name Role Phone Scott Weldon MD Primary Care Provider + Reason for Visit * Reason Onset Date Comments Pre Cert/Prior Auth 07/14/2024 Peer to peer Encounter Details Date Type Department Care Team (Late st Contact Info) Description 07/14/2024 Telephone Gastroenterology, [facility] [address] [place] [address] Adam Bradshaw CRNP [address] [place] [address] Pre Cert/Prior Auth (Peer to peer) Allergies Active Allergy Reactions Criticality Noted Date [...] 5 02/18/20 17 Active Insulin Infusion Pump (MINIMQuality Solicitors 630G INSULIN PUMP) KITIndications:Typ e 2 diabetes [...] suspected opioid overdose. Seek immediate medical attention. [email or web address] 1 Each 3 11/28/19 23 Active NovoLIN R ReliOn 100 UNIT/ML Injection Solution (insulin REGULAR human)Indications: Type 2 diabetes mellitus with hemoglobin A1c goal of less than 8.0% ([facility]),DM type 2, not at goal ([facility]) INJECT UP TO 200 UNITS SUBCUTANEOSULY [...] MG/DOSE)) Inject under the skin. Obtaining from Btiques Active Atorvastatin Calcium 40 MG Oral Tablet [...] (09/03/2009): Per Obesity Taxonomy Coronary atherosclerosis of [place] coronary artery 09/15/2008 10/03/2008 Malaise and fatigue [...] yrs 07/05/2015 Pneumococcal Conjugate Vacci ne, 20-valent (Txdifli74) 03/13/2023 Pneumococcal Polysaccharide PPV23 (Pneumovax) 02/19/2018,03/09/2007 Seasonal [...] the money to buy more. Never true 12/10/20 24 Within the past 12 months, t [...] Assessment Author No 04/20/2019 10:25 AM EST Venjose manuelize Teresa noel LPN * Are you blind [...] encounter Miscellaneous Notes * Telephone Encounter - Adam Bradshaw CRNP - 07/14/2024 2:37 PM EST Completed Peer to Peer w Dr. Dawn. Covered (obesity, elevated ALk Phos). No contrast because Cr. 1.4, eGFR 46. 47574, CTAP Approved. Auth # [id number] * Telephone Encounter - Jessie Upton, RANCH SUPERVISOR - 07/14/2024 1:23 PM EST P2P schedule for today at 2:[address] Jodi Dawn. Provider aware. * Telephone Encounter - Jill Saleem OSA - 07/14/2024 11:53 AM EST Pt is scheduled 07/19 The 32105.1 (CPT®) - CT ABD/PELVIS WO IV/ORAL CONTRAST requested for Carmen Tyson is currently awaiting Bxvs-lg-Dfra Review with [employer]. We kindly request a Nurse, MARLON, NOEL, or Physician, [phone] and reference tracking # [id number] to engage in a discussion with a Physician Reviewer to obtain the necessary authorization. Based on the clinical documentation provided, the approval of the requested imaging study is contingent upon the completion of a Qjqc-mh-Lkfa Review. We urge you to initiate this review process promptly, adhering to any specified timeframes, or at your earliest convenience if no specific timeframe has been provided. In the event that a Nuld-rf-Rvxy Review cannot be conducted, we kindly request that a Clinician contact the patient to discuss and propose an alternative treatment plan. Your prompt attention to thismatter is greatly appreciated. Denial Rationale: Your doctor told us that you have liver disease. An imaging study was asked for. We cannot approve this request because: Imaging can be done for one of these reasons. -You have a body mass index (BMI) of at least 35 or more. BMI is a measure of body fat based on your height and weight. -There are liver changes on an ultrasound (US) that were not normal. -Results of an US noted that the spot the doctor needed to see could not be seen clearly. Notes sent from your doctor do not show that one of these reasons. This finding was based on review of Medicare National Coverage Determinations (NCD): 220.1 Computed Tomography and eviCore Abdomen Imaging Guidelines Section(s): Chronic Liver Disease, Cirrhosis and Screening for HCC (AB 26.1) DONNA Rodrigues 07/14/24, 11:51 AM documented in this encounter Plan of Treatment Upcoming Encounters Date Type Department Care Team (Late st Contact Info) Description 07/19/2024 8:30 AM EST Imaging Radiology [facility] [address] [place] [address] 07/19/2024 9:30 AM EST Imaging Radiology [facility] 1st Floor, [place] [address] [place] [address] 07/20/2024 10:00 AM EST Imaging [facility] 2nd Floor Cardiology, [place] [address] [place] [address] 08/08/2024 10:30 AM EST Hem/Onc Treatment Hematology/Oncology [facility], [place] [facility] [phone] 08/09/2024 1:00 PM EST Telemedicine Nutrition, [facility] [address] [facility] [place] [address] Sharon Cabello, HUBERT [address] [place] [address] 08/11/2024 12:30 PM EST Telemedicine Psychiatry [facility] [address] [place] [address] Nhi Fritz CRNP [address] [place] [address] 08/12/2024 10:30 AM EST [facility] [place] [facility] [phone] [facility] [address] [facility] [place] [address] 09/14/2024 2:00 PM EDT Office Visit Hematology/Oncology [facility] 200 [facility] [place] [phone] Sunil Bourgeois MD 200 [facility] [place] [address] 09/15/2024 9:30 AM EDT Telemedicine Pharmacy, [facility] [address] [place] [address] [facility] [address] [place] [address] 09/29/2024 1:00 PM EDT Office Visit [facility] [address] [place] [address] Jadiel Epstein CRNP [facility] [place] [address] 10/18/2024 2:20 PM EDT Telemedicine Hepatology, [place] [address] [place], [place] [phone] Enid Saldana [address], [place] [phone] 12/14/2024 12:20 PM EDT Office Visit [facility] [address] [place] [address] Scott Weldon MD [facility] [place] [address] 03/13/2025 2:00 PM EDT Office Visit Nephrology, [facility] [address] [place] [address] Jonathan Mathew MD [address] [place] [address] 06/16/2025 11:40 AM EST Office Visit [facility] [address] [place] [address] Scott Weldon MD [address] [facility] [place] [address] Scheduled Procedures Name Priority Associated Diagnoses Date/Ti [...] this encounter Medical Devices Implanted Type Area Exhaust Equipment Operator Device Identifier Shelf Expiration Date Model / Serial / Lot Neurostimul Intellis Adaptiv - [id number] - [id number] Implanted:Qty: 1 on 08/22/2022 by Rafia Small MD at OR [facility] N/A: Spine Lumbar [employer] 06/21/2023 [id number] / [id number] / Description:battery Medtronic Lead Kit 60 Cm Implanted:Qty: 1 on 08/22/2022 by Rafia Small MD at OR [facility] N/A: Spine Lumbar 02/01/2026 [id number] / / [id number] Medtronic Lead Kit 60cm Implanted:Qty: 1 on 08/22/2022 by Rafia Small MD at OR [facility] N/A: Spine Lumbar 03/21/2026 [id number] / / [id number] Envelope Tyrx Med Antibacteril - [id number] Implanted:Qty: 1 on 08/22/2022 by Rafia Small MD at OR [facility] N/A: Spine Lumbar [employer] 03/10/2023 [id number] / / [id number] Hemostatic Clip Res 235cm - [id number] Implanted:Qty: 4 on 10/05/2023 by Aj Pruett DO at ENDOSCOPY [facility] [employer] : ENDOSCOPY 02/03/2026 [id number] / / Hemostatic Clip Res 235cm - [id number] Implanted:Qty: 1 on 10/05/2023 by Aj Pruett DO at ENDOSCOPY [facility] : ENDOSCOPY 02/02/2026 [id number] / / documented as of this encounter [...] Power of Attor narda? No Care Teams Lens Hardener Relationship Specialty Start Date End Date Scott Weldon MD 132 [facility] [place] [address] PCP - General Family Medicine 08/03/18 documented as of this encounter
--- OUTSIDE RECORDS SUMMARY | 2024-09-10 21:19 | External Medical Summary | Summary of Care ---
Author Name Unknown Organization [facility] Address [address] [facility] [place] [address] Phone [phone] Care Team Providers Care Calculating Machine Mechanic Name Role Phone Scott Weldon MD Primary Care Provider + Reason for Visit * Reason Onset Date Comments Pre Cert/Prior Auth 07/14/2024 Peer to peer Encounter Details Date Type Department Care Team (Late st Contact Info) Description 07/14/2024 Telephone Gastroenterology, [facility] [address] [place] [address] Adam Bradshaw CRNP [address] [place] [address] Pre Cert/Prior Auth (Peer to peer) Allergies [...] 5 02/18/20 17 Active Insulin Infusion Pump (MINIMKeyLemon 630G INSULIN PUMP) KITIndications:Typ e 2 diabetes [...] suspected opioid overdose. Seek immediate medical attention. [email or web address] 1 Each 3 11/28/19 23 Active NovoLIN [...] MG/DOSE)) Inject under the skin. Obtaining from GroupCharger Active Atorvastatin Calcium 40 MG Oral Tablet [...] yrs 07/05/2015 Pneumococcal Conjugate Vacci ne, 20-valent (Fbgouha87) 03/13/2023 Pneumococcal Polysaccharide PPV23 (Pneumovax) 02/19/2018,03/09/2007 Seasonal [...] No contrast because Cr. 1.4, eGFR 46. 24242, CTAP Approved. Auth # [id number] * Telephone Encounter - Jessie Upton, PACK WORKER SUPERVISOR - 07/14/2024 1:23 PM EST P2P schedule for today at 2:[address] Jodi Dawn. Provider aware. * Telephone Encounter - Jill Saleem OSA - 07/14/2024 11:53 AM EST Pt is scheduled 07/19 The 89081.1 (CPT®) - CT ABD/PELVIS WO IV/ORAL CONTRAST requested for Carmen Tyson is currently awaiting Hrem-ie-Iyvt Review with [employer]. We kindly request a Nurse, MARLON, NOEL, or Physician, [phone] and reference tracking # [id number] to engage in a discussion with a Physician Reviewer to obtain the necessary authorization. Based on the clinical documentation provided, the approval of the requested imaging study is contingent upon the completion of a Oqab-hl-Lvfo Review. We urge you to initiate this review process promptly, adhering to any specified timeframes, or at your earliest convenience if no specific timeframe has been provided. In the event that a Rhif-dp-Llyf Review cannot be conducted, we kindly request [...] Description 07/19/2024 8:30 AM EST Imaging Radiology [facility] [address] [place] [address] 07/19/2024 9:30 AM EST Imaging Radiology [facility] 1st Floor, [place] [address] [place] [address] 07/20/2024 10:00 AM EST Imaging [facility] 2nd Floor Cardiology, [place] [address] [place] [address] 08/08/2024 10:30 AM EST Hem/Onc Treatment Hematology/Oncology Treatment, [place] [facility] [phone] 08/09/2024 1:00 PM EST Telemedicine Nutrition, [facility] [address] [facility] [place] [address] Sharon Cabello, HUBERT [address] [place] [address] 08/11/2024 12:30 PM EST Telemedicine Psychiatry [facility] [address] [place] [address] Nhi Fritz CRNP [address] [place] [address] 08/12/2024 10:30 AM EST [facility] [place] [facility] [phone] [address] [address] [facility] [place] [address] 09/14/2024 2:00 PM EDT Office Visit Hematology/Oncology [facility] [address] [facility] [place] [phone] Sunil Bourgeois MD [address] [facility] [place] [address] 09/15/2024 9:30 AM EDT Telemedicine Pharmacy, [facility] [address] [place] [address] [facility] [address] [place] [address] 09/29/2024 1:00 PM EDT Office Visit [facility] [address] [place] [address] Jadiel Epstein CRNP [address] [facility] [place] [address] 10/18/2024 2:20 PM EDT Telemedicine Hepatology, [place] [address] [place], [place] [phone] Enid Saldana [address] [place], [place] [phone] 12/14/2024 12:20 PM EDT Office Visit [facility] [address] [place] [address] Scott Weldon MD [address] [facility] [place] [address] 03/13/2025 2:00 PM EDT Office Visit Nephrology, [facility] [address] [place] [address] Jonathan Mathew MD [address] [place] [address] 06/16/2025 11:40 AM EST Office Visit [facility] [address] [place] [address] Scott Weldon MD [address] [facility] [place] [address] Scheduled Procedures Name Priority Associated Diagnoses Date/Ti [...] encounter Medical Devices Implanted Type Area Care Assistant Device Identifier Shelf Expiration Date Model / Serial / Lot Neurostimul Intellis Adaptiv - [id number] - [id number] Implanted:Qty: 1 on 08/22/2022 by Rafia Small MD at OR [facility] N/A: Spine Lumbar [employer] 06/21/2023 [id number] / [id number] / Description:battery Medtronic Lead Kit 60 Cm Implanted:Qty: 1 on 08/22/2022 by Rafia Small MD at OR [facility] N/A: Spine Lumbar 02/01/2026 [id number] / / [id number] Medtronic Lead Kit 60cm Implanted:Qty: 1 on 08/22/2022 by Rafia Small MD at OR [facility] N/A: Spine Lumbar 03/21/2026 [id number] / / [id number] Envelope Tyrx Med Antibacteril - [id number] Implanted:Qty: 1 on 08/22/2022 by Rafia Small MD at OR [facility] N/A: Spine Lumbar [employer] 03/10/2023 [id number] / / [id number] Hemostatic Clip Res 235cm - [id number] Implanted:Qty: 4 on 10/05/2023 by Aj Pruett DO at ENDOSCOPY [facility] : ENDOSCOPY 02/03/2026 [id number] / / Hemostatic Clip Res 235cm - [id number] Implanted:Qty: 1 on 10/05/2023 by Aj Pruett DO at ENDOSCOPY [facility] : ENDOSCOPY 02/02/2026 [id number] / / documented as of this encounter [...] Power of Attor narda? No Care Teams Calculating Machine Mechanic Relationship Specialty Start Date End Date Scott Weldon MD 132 [facility] [place] [address] PCP - General Family Medicine 08/03/18 documented as of this encounter
--- OUTSIDE RECORDS SUMMARY | 2024-09-10 21:20 | External Medical Summary | Summary of Care ---
Author Name Unknown Organization [facility] Address [address] [facility] [address] Phone [phone] Care Team Providers Care Casino Gaming Worker Name Role Phone Scott Weldon MD Primary Care Provider + Reason for Visit * Reason Onset Date Comments Precert In Process 2024 06 Rosales Stalactite 3D Printersmelania Eszopiclone 2MG Encounter Details Date Type Department Care Team ([facility] st Contact Info) Description 2024 Telephone Psychiatry [facility] [address] [place] [address] Nhi Fritz CRNP [address] [place] [address] Precert In Process ( Rosales [...] 5 02/18/20 17 Active Insulin Infusion Pump (MINIMBubok 630G INSULIN PUMP) KITIndications:Typ e 2 diabetes [...] suspected opioid overdose. Seek immediate medical attention. [email or web address] 1 Each 3 11/28/19 23 Active NovoLIN [...] MG/DOSE)) Inject under the skin. Obtaining from Yodo1 Active Atorvastatin Calcium 40 MG Oral Tablet [...] (09/03/2009): Per Obesity Taxonomy Coronary atherosclerosis of [place] coronary artery 09/15/2008 10/03/2008 Malaise and fatigue [...] yrs 07/05/2015 Pneumococcal Conjugate Vacci ne, 20-valent (Dznaxrx67) 03/13/2023 Pneumococcal Polysaccharide PPV23 (Pneumovax) 02/19/2018,03/09/2007 Seasonal [...] Larson OSA - 07/14/2024 8:38 AM EST [facility] Authorization Submission Submission Information: Medication: Eszopiclone 2MG tablets Portal used: [facility] Insurance: [employer] Authorization #/Duque: [id number] [place] Yelitza Larson Medication Internal Medicine Physician Assistant [facility] 07/14/24,8:37 AM * Telephone Encounter - Marily Hopkins LPN - 2024 7:51 AM EST Psychiatry Pre-Cert Request Medication/Disease State Information: Medication: Eszopiclone 2 MG Oral Tablet (Lunesta) Diagnosis (including ICD-10): G47.00 Medication(s) Tried/Failed/Contraindicated: Ty Ty("I was afraid of it because of blood [...] Description 07/19/2024 8:30 AM EST Imaging Radiology [facility], [place] [address] [place] [address] 07/19/2024 9:30 AM EST Imaging Radiology [facility] 1st Floor, [place] [address] [place] [address] 07/20/2024 10:00 AM EST Imaging [facility] 2nd Floor Cardiology, [place] [address] [place] [address] 08/08/2024 10:30 AM EST Hem/Onc Treatment Hematology/Oncology Treatment, [place] [address] [place] [address] 08/09/2024 1:00 PM EST Telemedicine Nutrition, [facility] 132 [facility] [place] [address] Sharon Cabello, HUBERT [address] [place] [address] 08/11/2024 12:30 PM EST Telemedicine Psychiatry [facility] [address] [place] [address] Nhi Fritz CRNP [address] [place] [address] 08/12/2024 10:30 AM EST Office Visit Pharmacy, [facility] [address] [place] [phone] [address] [address] 09/14/2024 2:00 PM EDT Office Visit Hematology/Oncology [facility] [address] [facility] [place] [address] Sunil Bourgeois MD [address] [facility] [place] [address] 09/15/2024 9:30 AM EDT Telemedicine Pharmacy, [facility] 132 [facility] [address] [facility] [address] [facility] [place] [address] 09/29/2024 1:00 PM EDT Office Visit Family Practice [facility] [address] [facility] [address] Jadiel Epstein CRNP [address] [place] [address] 10/18/2024 2:20 PM EDT Telemedicine Hepatology, [place] [address] [place], [place] [phone] Enid Saldana DO [address] [place] [address] 12/14/2024 12:20 PM EDT Office Visit [facility] [address] [place] [address] Scott Weldon MD [address] [facility] [place] [address] 03/13/2025 2:00 PM EDT Office Visit Nephrology, [facility] [address] [facility] [place] [address] Jonathan Mathew MD 200 [facility] [place] [address] 06/16/2025 11:40 AM EST Office Visit [facility] [address] [place] [address] Scott Weldon MD [facility] [place] [address] Scheduled Procedures Name Priority Associated Diagnoses Date/Ti [...] this encounter Medical Devices Implanted Type Area Director Of Nursing Device Identifier Shelf Expiration Date Model / Serial / Lot Neurostimul Intellis Adaptiv - [id number] - [id number] Implanted:Qty: 1 on 08/22/2022 by Rafia Small MD at OR [facility] N/A: Spine Lumbar [employer] 06/21/2023 [id number] / [id number] / Description:battery Medtronic Lead Kit 60 Cm Implanted:Qty: 1 on 08/22/2022 by Rafia Small MD at OR [facility] N/A: Spine Lumbar 02/01/2026 [id number] / / [id number] Medtronic Lead Kit 60cm Implanted:Qty: 1 on 08/22/2022 by Rafia Small MD at OR [facility] N/A: Spine Lumbar 03/21/2026 [id number] / / [id number] Envelope Tyrx Med Antibacteril - [id number] Implanted:Qty: 1 on 08/22/2022 by Rafia Small MD at OR [facility] N/A: Spine Lumbar [employer] 03/10/2023 [id number] / / [id number] Hemostatic Clip Res 235cm - [id number] Implanted:Qty: 4 on 10/05/2023 by Aj Pruett DO at ENDOSCOPY [facility] : ENDOSCOPY 02/03/2026 [id number] / / Hemostatic Clip Res 235cm - [id number] Implanted:Qty: 1 on 10/05/2023 by Aj Pruett DO at ENDOSCOPY [facility] : ENDOSCOPY 02/02/2026 [id number] / / documented as of this encounter [...] Power of Attor narda? No Care Teams Casino Gaming Worker Relationship Specialty Start Date End Date Scott Weldon MD [address] [place] [address] PCP - General Family Medicine 08/03/18 documented as of this encounter
--- OUTSIDE RECORDS SUMMARY | 2024-09-10 21:20 | External Medical Summary | Summary of Care ---
Author Name Unknown Organization [facility] Address [address] [facility] K[facility] [place] [address] Phone [phone] Care Team Providers Care Vice President Safety Name Role Phone Scott Weldon MD Primary Care Provider + Reason for Visit * Reason Onset Date Comments Medication Problem 07/12/2024 Encounter Details Date Type Department Care Team ([facility] st Contact Info) Description 07/12/2024 Telephone Psychiatry [facility] [address] [place] [address] Nhi Fritz CRNP [address] [place] [address] Medication Problem Allergies Active Allergy Reactions Criticality Noted Date Comments Naproxen Sodium Bleeding High 11/29/2013 Pollen 12/03/2022 Seasonal Food (See Comments) Anaphylaxis High 04/20/2019 Hot peppers (oils) Kiwi Extract Anaphylaxis High 04/20/2019 documented as of this encounter (statuses as of 2024) Medications insulin glargine (LANTUS SOLOSTAR) 100 UNIT/ML [...] suspected opioid overdose. Seek immediate medical attention. [email or web address]?[email or web address] 1 Each 3 11/28/19 23 Active NovoLIN [...] MG/DOSE)) Inject under the skin. Obtaining from iHigh Active Atorvastatin Calcium 40 MG Oral Tablet [...] as of this encounter (statuses as of 2024) Active Problems Problem Noted Date Diagnosed Date [...] adult exam 07/17/2016 Overview (07/09/2024): 07/02 home FARZNAEH WNL. 03/31 EGD +Grade 2 varices, gastropathy [...] as of this encounter (statuses as of 2024) Resolved Problems Problem Noted Date Diagnosed Date [...] (09/03/2009): Per Obesity Taxonomy Coronary atherosclerosis of jamul coronary artery 09/15/2008 10/03/2008 Malaise and fatigue [...] as of this encounter (statuses as of 2024) Immunizations Name Administration Dates Next Due COVID-19 mRNA, LNP-s, No Pre serve, 2-Dose Series (Primordial) 11/08/2020,10/11/2020 HEP A - Hepatitis A (Adult > 18 yrs) 04/11/2011, 09/20/2010 Hepatitis B, 20+ yrs 07/05/2015 Pneumococcal Conjugate Vacci ne, 20-valent ([id number]) 03/13/2023 Pneumococcal Polysaccharide PPV23 (Pneumovax) 02/19/2018,03/09/2007 Seasonal [...] Telephone Encounter - Marily Hopkins LPN - 07/12/2024 2:[address] Fritz Which dx are you using for the PA of lunkelsiea? She would need something sleep related I believe Thank you! documented in this encounter Plan of Treatment Upcoming Encounters Date Type Department Care Team (Late st Contact Info) Description 07/19/2024 8:30 AM EST Imaging Radiology [facility] [address] [place] [address] 07/19/2024 9:30 AM EST Imaging Radiology [facility] 1st Floor, [place] [address] [place] [address] 07/20/2024 10:00 AM EST Imaging [facility] 2nd Floor Cardiology, [place] 132 [facility] [place] [address] 08/08/2024 10:30 AM EST Hem/Onc Treatment Hematology/Oncology Treatment, [place] [address] [place] [address] 08/09/2024 1:00 PM EST Telemedicine Nutrition, [facility] 132 [facility] [place] [address] Sharon Cabello, RDN [address] [place] [address] 08/11/2024 12:30 PM EST Telemedicine Psychiatry [facility] [address] [place] [address] Nhi Fritz, POWDER COAT PAINTER [address] [place] [address] 08/12/2024 10:30 AM EST Office Visit Pharmacy, [facility] [address] [place] [address] Jayesh [address] [address] 09/14/2024 2:00 PM EDT Office Visit Hematology/Oncology [facility] 200 [facility] [place] [phone] Sunil Bourgeois MD [facility] [address] 09/15/2024 9:30 AM EDT Telemedicine Pharmacy, [facility] 132 [facility] [place] [address] [place] [facility] [address] [place] [address] 09/29/2024 1:00 PM EDT Office Visit [facility] [address] [place] [address] Jadiel Epstein CRNP [address] [place] [address] 10/18/2024 2:20 PM EDT Telemedicine Hepatology, [place] [address] [place], [place] [phone] Enid Saldana [address] [place], [place] [phone] 12/14/2024 12:20 PM EDT Office Visit [facility] [address] [place] [address] Scott Weldon MD [address] [place] [address] 03/13/2025 2:00 PM EDT Office Visit Nephrology, [facility] 200 [place] [address] Jonathan Mathew MD 200 [place] [place] [address] 06/16/2025 11:40 AM EST Office Visit [facility] [address] [place] [address] Scott Weldon MD [address] [place] [address] Scheduled Procedures Name Priority Associated Diagnoses Date/Ti [...] this encounter Medical Devices Implanted Type Area Tail Worker Device Identifier Shelf Expiration Date Model / Serial / Lot Neurostimul Intellis Adaptiv - [id number] - [id number] Implanted:Qty: 1 on 08/22/2022 by Rafia Small MD at OR [facility] N/A: Spine Lumbar [employer] 06/21/2023 [id number] / [id number] / Description:battery Medtronic Lead Kit 60 Cm Implanted:Qty: 1 on 08/22/2022 by Rafia Small MD at OR [facility] N/A: Spine Lumbar 02/01/2026 [id number] / / [id number] Medtronic Lead Kit 60cm Implanted:Qty: 1 on 08/22/2022 by Rafia Small MD at OR [facility] N/A: Spine Lumbar 03/21/2026 [id number] / / [id number] Envelope Tyrx Med Antibacteril - [id number] Implanted:Qty: 1 on 08/22/2022 by Rafia Small MD at OR [facility] N/A: Spine Lumbar [employer] 03/10/2023 [id number] / / [id number] Hemostatic Clip Res 235cm - [id number] Implanted:Qty: 4 on 10/05/2023 by Aj Pruett DO at ENDOSCOPY [facility] [employer] : ENDOSCOPY 02/03/2026 [id number] / / Hemostatic Clip Res 235cm - [id number] Implanted:Qty: 1 on 10/05/2023 by Aj Pruett DO at ENDOSCOPY [facility] [employer] : ENDOSCOPY 02/02/2026 [id number] / / documented as of this encounter [...] Power of Attor narda? No Care Teams Vice President Safety Relationship Specialty Start Date End Date Scott Weldon MD [address] [place] [address] PCP - General Family Medicine 08/03/18 documented as of this encounter
--- OUTSIDE RECORDS SUMMARY | 2024-09-10 21:20 | External Medical Summary | Summary of Care ---
Author Name Unknown Organization [facility] Address [address] [facility] [address] Phone [phone] Care Team Providers Care Adult Nurse Practitioner Name Role Phone Scott Weldon MD Primary Care Provider + Reason for Visit * Reason Comments IV Therapy Venofer Procedure Labs from port, TPA Encounter Details Date Type Department Care Team (Latest Contact Info) Description 07/11/2024 10:00 AM EST Hem/Onc Treatment Hematology/Oncology Treatment, [place] [address] [place] [address] Iron deficiency anemia due to [...] 5 02/18/20 17 Active Insulin Infusion Pump (MINIMLiveAir Networks 630G INSULIN PUMP) KITIndications:Typ e 2 [...] suspected opioid overdose. Seek immediate medical attention. [email or web address] 1 Each 3 11/28/19 23 Active NovoLIN [...] MG/DOSE)) Inject under the skin. Obtaining from [employer] Active Atorvastatin Calcium 40 MG Oral [...] Anxiety. 90 Tablet 3 07/07/19 25 Active documented as of this encounter [...] (09/03/2009): Per Obesity Taxonomy Coronary atherosclerosis of paimiut coronary artery 09/15/2008 10/03/2008 Malaise and fatigue [...] yrs 07/05/2015 Pneumococcal Conjugate Vacci ne, 20-valent (Iekfmxh54) 03/13/2023 Pneumococcal Polysaccharide PPV23 (Pneumovax) 02/19/2018,03/09/2007 Seasonal [...] for effectiveness, appropriate waste drawn for labs. Accounts Payable Or Receivable Clerk came to drawn peripheral PT/INR. Venofer started, mother in law here with patient now. Patient states she forgot to take her Zofran today and is having some nausea - ordered by NOEL Vicente. Patient is comfortable and denies any further needs. * Amada Foote, RN - 07/11/2024 10:59 AM EST Chair [...] Description 07/19/2024 8:30 AM EST Imaging Radiology [facility] [address] [place] [address] 07/19/2024 9:30 AM EST Imaging Radiology [facility] 1st [facility], [place] [address] [place] [address] 07/20/2024 10:[address] [facility] II 2nd Floor Cardiology, [place] [address] [place] [address] 08/08/2024 10:30 AM EST Hem/Onc Treatment Hematology/Oncology Treatment, [place] [address] [place] [address] 08/09/2024 1:00 PM EST Telemedicine Nutrition, [facility] [address] [place] [address] Sharon Cabello, RDN [address] [place] [address] 08/11/2024 12:30 PM EST Telemedicine Psychiatry [facility] [address] [place] [address] Nhi Fritz CRNP [address] [place] [address] 08/12/2024 10:30 AM EST [facility] [phone] [address] [address] 09/14/2024 2:00 PM EDT Office Visit Hematology/Oncology [facility] [address] [place] [address] Sunil Bourgeois MD [address] [place] [address] 09/15/2024 9:30 AM EDT Telemedicine Pharmacy, [facility] 132 [facility] [place] [address] [place] [address] 09/29/2024 1:00 PM EDT Office Visit [facility] [place] [address] Jadiel Epstein CRNP [address] [place] [address] 10/18/2024 2:20 PM EDT Telemedicine Hepatology, [place] [address] [place], [place] [phone] Enid Saldana [address] [place], [place] [phone] 12/14/2024 12:20 PM EDT Office Visit [facility] [place] [address] Scott Weldon MD 132 [facility] [place] [address] 03/13/2025 2:00 PM EDT Office Visit Nephrology, [facility] [address] [place] [address] Jonathan Mathew MD 200 [facility] [place] [address] 06/16/2025 11:40 AM EST Office Visit [facility] 132 [facility] [place] [address] Scott Weldon MD 132 [facility] [place] [address] Scheduled Procedures Name Priority Associated Diagnoses Date/Ti [...] this encounter Medical Devices Implanted Type Area Prop Cutter Device Identifier Shelf Expiration Date Model / Serial / Lot Neurostimul Intellis Adaptiv - [id number] - [id number] Implanted:Qty: 1 on 08/22/2022 by Rafia Small MD at OR [facility] N/A: Spine Lumbar [employer] 06/21/2023 [id number] / [id number] / Description:battery Medtronic Lead Kit 60 Cm Implanted:Qty: 1 on 08/22/2022 by Rafia Small MD at OR [facility] N/A: Spine Lumbar 02/01/2026 [id number] / / [id number] Medtronic Lead Kit 60cm Implanted:Qty: 1 on 08/22/2022 by Rafia Small MD at OR [facility] N/A: Spine Lumbar 03/21/2026 [id number] / / [id number] Envelope Tyrx Med Antibacteril - [id number] Implanted:Qty: 1 on 08/22/2022 by Rafia Small MD at OR [facility] N/A: Spine Lumbar [employer] 03/10/2023 [id number] / / [id number] Hemostatic Clip Res 235cm - [id number] Implanted:Qty: 4 on 10/05/2023 by Aj Pruett DO at ENDOSCOPY [facility] [employer] [facility] ENDOSCOPY 02/03/2026 [id number] / / Hemostatic Clip Res 235cm - [id number] Implanted:Qty: 1 on 10/05/2023 by Aj Pruett DO at ENDOSCOPY [facility] [employer] [facility] ENDOSCOPY 02/02/2026 [id number] / / documented as of this encounter [...] PT INR (07/11/2024 10:12 AM EST) Pathologist [facility] Prothrombin Time 14.7 11.6 - 15.2 seconds 07/11/2024 12:15 PM EST [facility] 56-02 INR 1.1 0.8 - 1.2 07/11/2024 12:15 PM EST [facility] 56-02 Blood Venous blood specimen / Unknown Central Line / Unknown 07/11/2024 10:12 AM EST 07/11/2024 11:48 AM EST Narrative [facility] 56-02 - 07/11/2024 12:15 PM EST Warfarin Therapy INR: 2.0-3.0 conventional anticoagulation INR: 2.5-3.5 high intensity anticoagulation us Adam COHEN LAB BLOOD ORDERABLES Final Result [facility] 56-[address] [place] [address] * DIFFERENTIAL, TECHNOLOGIST REVIEW (07/11/2024 10:00 AM EST) Pathologist [facility] nRBCs 07/11/2024 12:06 PM [facility] 56-02 Blood Venous blood specimen / Unknown Central Line / Unknown 07/11/2024 10:00 AM EST 07/11/2024 11:48 AM EST us Sunil Bourgeois MD LAB BLOOD ORDERABLES Final Res ult [facility] [address] [place], [place] [phone] * (ABNORMAL) DIFFERENTIAL, AUTOMATED (07/11/2024 10:00 AM EST) Pathologist [facility] WBC 4.47 4.00 - 10.80 K/uL 07/11/2024 12:06 PM [facility] 56-02 Neutrophils % 68.8 40.0 - 75.0 % 07/11/2024 12:06 PM [facility] 56-02 Lymphocytes % 18.3 18.0 - 42.0 % 07/11/2024 12:06 PM [facility] 56-02 Monocytes % 7.4 1.0 - 11.0 % 07/11/2024 12:06 PM [facility] 56-02 Eosinophils % 5.1 0.0 - 6.0 % 07/11/2024 12:06 PM [facility] 56-02 Basophils % 0.4 0.0 - 2.0 % 07/11/2024 12:06 PM [facility] 56-02 Absolute Neutrophils 3.07 1.80 - 7.70 K/uL 07/11/2024 12:06 PM [facility] 56-02 Absolute Lymphocytes 0.82(L) 1.00 - 4.80 K/ul 07/11/2024 12:06 PM [facility] 56-02 Absolute Monocytes 0.33 0.00 - 1.10 K/uL 07/11/2024 12:06 PM [facility] 56-02 Absolute Eosinophils 0.23 0.00 - 0.70 K/uL 07/11/2024 12:06 PM [facility] 56-02 Absolute Basophils 0.02 0.00 - 0.20 K/uL 07/11/2024 12:06 PM [facility] 56-02 Blood Venous blood specimen / Unknown Central Line / Unknown 07/11/2024 10:00 AM EST 07/11/2024 11:48 AM EST Sunil Bourgeois MD LAB BLOOD ORDERABLES Final Res ult [facility] 56- [address] [place], [place] [phone] * (ABNORMAL) CBC (07/11/2024 10:00 AM EST) WBC 4.47 4.00 - 10.80 K/uL 07/11/2024 12:06 PM [facility] 56 RBC 4.05 3.85 - 5.15 M/uL 07/11/2024 12:06 PM [facility] 56 HGB 11.4(L) 12.0 - 15.3 g/dL 07/11/2024 12:06 PM [facility] 56 HCT 35.2(L) 36.0 - 45.2 % 07/11/2024 12:06 PM [facility] 56 MCV 86.9 81.5 - 97.5 fL 07/11/2024 12:06 PM [facility] 56 MCH 28.1 27.0 - 34.0 pg 07/11/2024 12:06 PM [facility] 5602 MCHC 32.4 32.0 - 36.0 g/dL 07/11/2024 12:06 PM [facility] 56 RDW 15.5 11.5 - 15.5 % 07/11/2024 12:06 PM [facility] 56 PLT 48(L) 140 - 400 K/uL 07/11/2024 12:06 PM [facility] 56 MPV 9.9 6.6 - 11.1 fL 07/11/2024 12:06 PM [facility] 56-02 Blood Venous blood specimen / Unknown Central Line / Unknown 07/11/2024 10:00 AM EST 07/11/2024 11:48 AM EST us Sunil Bourgeois MD LAB BLOOD ORDERABLES Final Res ult Performing Organization Address City/[facility]/ZIP Co de Phone Number LABORATORY [place] 56-[address] [place] [address] * IRON SCREEN, INCLUDING TIBC (07/11/2024 10:00 [...] ORDERABLES Final Res ult Performing Organization Address [facility] Co de Phone Number [facility] [address] [place] [address] * (ABNORMAL) FERRITIN (07/11/2024 10:00 AM EST) Ferritin 306(H) 13 - 150 ng/mL 07/12/2024 1:19 AM EST [facility] Comment:Postmenopausal women have higher ferritin levels than pre-menopausal women. The above reference interval is based on pre-menopausal women. Blood Venous blood specimen / Unknown Central Line / Unknown 07/11/2024 10:00 AM EST 07/11/2024 11:48 AM EST Sunil Bourgeois MD LAB BLOOD ORDERABLES Final Res ult Performing Organization Address [facility] Co de Phone Number [facility] [address] [place] [address] documented in this encounter Visit Diagnoses Diagnosis [...] 2.2 mL of Sterile Water for Injection, [facility], into the vial, directing the diluent stream [...] Power of Attor narda? No Care Teams Adult Nurse Practitioner Relationship Specialty Start Date End Date Scott Weldon MD [address] [place] [address] PCP - General Family Medicine 08/03/18 documented as of this encounter
--- OUTSIDE RECORDS SUMMARY | 2024-09-10 21:20 | External Medical Summary | Summary of Care ---
Author Name Unknown Organization [facility] Address 100 [facility] [address] Phone [phone] Care Team Providers Care [employer]obbies [employer] Crafts Sales Representative Name Role Phone Scott Weldon MD Primary Care Provider + Reason for Visit * Reason Onset Date Comments Precert In Process 2024 06 Rosales [employer] Eszopiclone 2MG Encounter Details Date Type Department Care Team ([facility] st Contact Info) Description 2024 Telephone Psychiatry [facility] [address] [place] [address] Nhi Fritz CRNP [address] [place] [address] Precert In Process ( Rosales [...] 5 02/18/20 17 Active Insulin Infusion Pump ([employer]IM[employer] 630G INSULIN PUMP) KITIndications:Typ e 2 diabetes [...] suspected opioid overdose. Seek immediate medical attention. [email or web address] 1 Each 3 11/28/19 23 Active NovoLIN R ReliOn 100 UNIT/ML Injection Solution (insulin REGULAR human)Indications: Type 2 diabetes mellitus with hemoglobin A1c goal of less than 8.0% ([facility]),DM type 2, not at goal ([facility]) INJECT UP TO 200 UNITS [...] MG/DOSE)) Inject under the skin. Obtaining from [address] Active Atorvastatin Calcium 40 MG Oral Tablet [...] (09/03/2009): Per Obesity Taxonomy Coronary atherosclerosis of iroquois [...] yrs 07/05/2015 Pneumococcal Conjugate Vacci ne, 20-valent (Cmwadlc30) 03/13/2023 Pneumococcal Polysaccharide PPV23 (Pneumovax) 02/19/2018,03/09/2007 Seasonal [...] Larson OSA - 07/14/2024 8:38 AM EST [facility] Authorization Submission Submission Information: Medication: Eszopiclone 2MG tablets Portal used: [facility] Insurance: [employer] Authorization #/Duque: [id number] [place] Yelitza Larson Medication Medical Device Sales [facility] 07/14/24,8:37 AM * Telephone Encounter - Marily Hopkins LPN - 2024 7:51 AM EST Psychiatry Pre-Cert Request Medication/Disease State Information: Medication: Eszopiclone 2 MG Oral Tablet (Lunesta) Diagnosis (including ICD-10): G47.00 Medication(s) Tried/Failed/Contraindicated: [place]("I was afraid of it because of blood [...] Description 07/19/2024 8:30 AM EST Imaging Radiology [facility], [place] [address] [place] [address] 07/19/2024 9:30 AM EST Imaging Radiology [facility] 1st Floor, [place] [address] [place] [address] 07/20/2024 10:00 AM EST Imaging [facility] II 2nd Floor Cardiology, [place] [address] [place] [address] 08/08/2024 10:30 AM EST Hem/Onc Treatment Hematology/Oncology Treatment, [place] [address] [place] [address] 08/09/2024 1:00 PM EST Telemedicine Nutrition, [facility] 132 [facility] [place] [address] Sharon Cabello, HUBERT [address] [place] [address] 08/11/2024 12:30 PM EST Telemedicine Psychiatry [facility] [address] [place] [address] Nhi Fritz CRNP [address] [place] [address] 08/12/2024 10:30 AM EST Office Visit Pharmacy, [facility] [address] [place] [address] [address] [address] 09/14/2024 2:00 PM EDT Office Visit Hematology/Oncology [facility] 200 [facility] [place] [address] Sunil Bourgeois MD 200 [facility] [place] [address] 09/15/2024 9:30 AM EDT Telemedicine Pharmacy, [facility] 132 [facility] [address] [facility] [address] [facility] [place] [address] 09/29/2024 1:00 PM EDT Office Visit Family Practice [facility] [address] [facility] [address] Jadiel Epstein CRNP [address] [place] [address] 10/18/2024 2:20 PM EDT Telemedicine Hepatology, [place] [address] [place], [place] [phone] Enid Saldana DO [address] [place] [address] 12/14/2024 12:20 PM EDT Office Visit [facility] [address] [place] [address] Scott Weldon MD [address] [facility] [place] [address] 03/13/2025 2:00 PM EDT Office Visit Nephrology, [facility] 200 [facility] [place] [address] Jonathan Mathew MD 200 [facility] [place] [address] 06/16/2025 11:40 AM EST Office Visit [facility] [address] [place] [address] Scott Weldon MD [facility] [place] [address] Scheduled Procedures Name Priority Associated Diagnoses Date/Ti [...] this encounter Medical Devices Implanted Type Area Laundry Bag Punch Operator Device Identifier Shelf Expiration Date Model / Serial / Lot Neurostimul Intellis Adaptiv - [id number] - [id number] Implanted:Qty: 1 on 08/22/2022 by Rafia Small MD at OR [facility] N/A: Spine Lumbar [employer] 06/21/2023 [id number] / [id number] / Description:battery Medtronic Lead Kit 60 Cm Implanted:Qty: 1 on 08/22/2022 by Rafia Small MD at OR [facility] N/A: Spine Lumbar 02/01/2026 [id number] / / [id number] Medtronic Lead Kit 60cm Implanted:Qty: 1 on 08/22/2022 by Rafia Small MD at OR [facility] N/A: Spine Lumbar 03/21/2026 [id number] / / [id number] Envelope Tyrx Med Antibacteril - [id number] Implanted:Qty: 1 on 08/22/2022 by Rafia Small MD at OR [facility] N/A: Spine Lumbar [employer] 03/10/2023 [id number] / / [id number] Hemostatic Clip Res 235cm - [id number] Implanted:Qty: 4 on 10/05/2023 by Aj Pruett DO at ENDOSCOPY [facility] [employer] : ENDOSCOPY 02/03/2026 [id number] / / Hemostatic Clip Res 235cm - [id number] Implanted:Qty: 1 on 10/05/2023 by Aj Pruett DO at ENDOSCOPY [facility] [employer] : ENDOSCOPY 02/02/2026 [id number] / / documented as of this encounter [...] Power of Attor narda? No Care Teams [employer] Sales Representative Relationship Specialty Start Date End Date Scott Weldon MD [address] [place] [address] PCP - General Family Medicine 08/03/18 documented as of this encounter
--- OUTSIDE RECORDS SUMMARY | 2024-09-10 21:20 | External Medical Summary | Summary of Care ---
Author Name Unknown Organization [facility] Address [address] [facility] [address] Phone [phone] Care Team Providers Care Industrial Twisting Machine Operator Name Role Phone Scott Weldon MD Primary Care Provider + Reason for Visit * Reason Onset Date Comments Pre Cert/Prior Auth 2024 Encounter Details Date Type Department Care Team ([facility] st Contact Info) Description 2024 Telephone Psychiatry [facility] [address] [place] [address] Nhi Fritz CRNP [address] [place] [address] Pre Cert/Prior Auth Allergies Active Allergy Reactions Criticality Noted Date [...] 8.0% ([facility]) Use as directed. 07/30/19 18 Active CPAP every night at bedtime. Active Glucagon Emergency 1 MG Injection Kit As directed 1 Kit 3 09/05/19 23 Active Naloxone HCl 4 MG/0.1ML Nasal Liquid (Narcan Nasal)Indications: Controlled substance agreement signed,Chronic pain syndrome Administer 1 spray into 1 nostril for suspected opioid overdose. Seek immediate medical attention. [email or web address] 1 Each 3 11/28/19 23 Active NovoLIN R ReliOn 100 UNIT/ML Injection Solution (insulin REGULAR human)Indications: Type 2 diabetes mellitus with hemoglobin A1c goal of less than 8.0% ([facility]),DM type 2, not at goal ([facility]) INJECT UP TO 200 UNITS [...] MG/DOSE)) Inject under the skin. Obtaining from [employer] Active Atorvastatin Calcium 40 MG Oral Tablet [...] (09/03/2009): Per Obesity Taxonomy Coronary atherosclerosis of kashia coronary artery 09/15/2008 10/03/2008 Malaise and fatigue [...] mRNA, LNP-s, No Pre serve, 2-Dose Series (ScubaTribe) 11/08/2020,10/11/2020 HEP A - Hepatitis A (Adult > 18 yrs) 04/11/2011, 09/20/2010 Hepatitis B, 20+ yrs 07/05/2015 Pneumococcal Conjugate Vacci ne, 20-valent ([id number]) 03/13/2023 Pneumococcal Polysaccharide PPV23 (Pneumovax) 02/19/2018,03/09/2007 Seasonal [...] (Lunesta) Diagnosis (including ICD-10): G47.00 Medication(s) Tried/Failed/Contraindicated: Edgeworth("I was afraid of it because of blood [...] Description 07/19/2024 8:30 AM EST Imaging Radiology [facility] [address] [place] [address] 07/19/2024 9:30 AM EST Imaging Radiology [facility] 1st Floor, [place] [address] [facility] [place] [address] 07/20/2024 10:00 AM EST Imaging [facility] II 2nd Floor Cardiology, [place] 132 [facility] [place] [address] 08/08/2024 10:30 AM EST Hem/Onc Treatment Hematology/Oncology Treatment, [place] [address] [place], [place] [phone] 08/09/2024 1:00 PM EST Telemedicine Nutrition, [facility] [address] [facility] [place] [address] Sharon Cabello, HUBERT [address] [place] [address] 08/11/2024 12:30 PM EST Telemedicine Psychiatry [facility] [address] [facility] [place] [address] Nhi Fritz CRNP [address] [place] [address] 08/12/2024 10:30 AM EST Office Visit Pharmacy, [facility] Regan [address] [facility] [place] [address] [place] [address] [place] [address] 09/14/2024 2:00 PM EDT Office Visit Hematology/Oncology [facility] [address] [place] [phone] Sunil Bourgeois MD [address] [place] [address] 09/15/2024 9:30 AM EDT Telemedicine Pharmacy, [facility] 132 [place] [address] [facility] [place] [address] 09/29/2024 1:00 PM EDT Office Visit Family Practice [facility] [address] [facility] [place] [address] Jadiel Epstein CRNP [address] [place] [address] 10/18/2024 2:20 PM EDT Telemedicine Hepatology, [place] [address] [place] [address] Enid Saldana DO [address] [place] [address] 12/14/2024 12:20 PM EDT Office Visit [facility] [address] [place] [address] Scott Weldon MD [address] [facility] [place] [address] 03/13/2025 2:00 PM EDT Office Visit Nephrology, [facility] [address] [place] [address] Jonathan Mathew MD [address] [place], [place] [address] 06/16/2025 11:40 AM EST Office Visit Family [facility] [address] [place] [address] Scott Weldon MD [address] [place] [address] Scheduled Procedures Name Priority Associated Diagnoses Date/Ti [...] 09/08/2023, 0 10/2014, 04/12/2015, Additional history exists DTap/Tdap Vaccines [...] encounter Medical Devices Implanted Type Area Data Warehousing Engineer Device Identifier Shelf Expiration Date Model / Serial / Lot Neurostimul Intellis Adaptiv - [id number] - [id number] Implanted:Qty: 1 on 08/22/2022 by Rafia Small MD at OR [facility] N/A: Spine Lumbar [employer] 06/21/2023 [id number] / [id number] / Description:battery Medtronic Lead Kit 60 Cm Implanted:Qty: 1 on 08/22/2022 by Rafia Small MD at OR [facility] N/A: Spine Lumbar 02/01/2026 [id number] / / [id number] Medtronic Lead Kit 60cm Implanted:Qty: 1 on 08/22/2022 by Rafia Small MD at OR [facility] N/A: Spine Lumbar 03/21/2026 [id number] / / [id number] Envelope Tyrx Med Antibacteril - [id number] Implanted:Qty: 1 on 08/22/2022 by Rafia Small MD at OR [facility] N/A: Spine Lumbar [employer] 03/10/2023 [id number] / / [id number] Hemostatic Clip Res 235cm - [id number] Implanted:Qty: 4 on 10/05/2023 by Aj Pruett, DO at ENDOSCOPY [facility] : ENDOSCOPY 02/03/2026 [id number] / / Hemostatic Clip Res 235cm - [id number] Implanted:Qty: 1 on 10/05/2023 by Aj Pruett, DO at ENDOSCOPY [facility] : ENDOSCOPY 02/02/2026 [id number] / / documented as of this encounter [...] Power of Attor narda? No Care Teams Industrial Twisting Machine Operator Relationship Specialty Start Date End Date Scott Weldon MD [address] [facility] [place] [address] PCP - General Family Medicine 08/03/18 documented as of this encounter
--- OUTSIDE RECORDS SUMMARY | 2024-09-10 21:20 | External Medical Summary | Summary of Care ---
Author Name Unknown Organization [facility] Address [address] [facility] [place] [address] Phone [phone] Care Team Providers Care It Infrastructure Architect Name Role Phone Scott Weldon MD Primary Care Provider + Reason for Visit * Reason Comments Follow Up Encounter Details Date Type Department Care Team ([facility] Contact Info) Description 07/07/2024 9:30 AM EST Telemedicine Psychiatry [facility] [address] [place] [address] Nhi Fritz CRNP [address] [place] [address] PTSD (post-traumatic stress disorder)*; MDD (major depressive disorder), recurrent, in full remission (HCC); MICHELLE (generalized anxiety disorder); Insomnia, unspecified type Allergies Active Allergy Reactions Criticality [...] 5 02/18/20 17 Active Insulin Infusion Pump (MINIMFood Quality Sensor International 630G INSULIN PUMP) KITIndications:Ty pe 2 diabetes [...] suspected opioid overdose. Seek immediate medical attention. [email or web address]?v=[email or web address] 1 Each 3 11/28/19 23 Active NovoLIN [...] MG/DOSE)) Inject under the skin. Obtaining from [employer] Active Atorvastatin Calcium 40 MG Oral Tablet (Lipitor)Indicati ons:Dyslipidemia, goal LDL below 100 Take 1 Tablet by mouth at bedtime. 90 Tablet 2 01/04/20 25 Active Empagliflozin 10 MG Oral Tablet [...] Anxiety. 90 Tablet 3 07/07/19 25 Active Escitalopram Oxalate 20 MG Oral [...] (09/03/2009): Per Obesity Taxonomy Coronary atherosclerosis of elem coronary artery 09/15/2008 10/03/2008 Malaise and fatigue [...] yrs 07/05/2015 Pneumococcal Conjugate Vacci ne, 20-valent ([id number]) 03/13/2023 Pneumococcal Polysaccharide PPV23 (Pneumovax) 02/19/2018,03/09/2007 Seasonal [...] Progress Notes * Nhi Fritz CRNP - 07/07/2024 9:30 AM EST OUTPATIENT PSYCHIATRY RETURN VISIT DIVISION OF PSYCHIATRY [place] [address] Name: Carmen Tyson : 1970 Date and Time Patient was Seen: 07/07/2024 at 9:27am Patient location: HOME. I was not in a hospital or clinic location. After connecting through televideo, patient was verified with two unique identifiers. 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 Methods to assure confidentiality were taken. Patient acknowledged consent and understanding of privacy and security of the Telemedicine visit. The patient agreed to participate. Start Time: 9:27 am Stop Time: Total direct obja-yh-eyjh time: Physical Location of patient: home CC: [...] "I suppressed it". She reported h/o taking Crest("Iwas afraid of it because of blood work"), [...] She takes them and denied any s/e. INTERVAL HISTORY: Pt sent a message that she wants lunesta sent to [email or web address] and that she has insurance issues. It was sentto [email or web address] and a message was sent to her that maybe insurance doesn't cover it any more. During this encounter , she informed this typewriter assembler that she changed insurance and have issues with getting some of her other meds. Pt said lunesta works so wants to continue it. She doesn't want to try any other sleep aid. She also takes trazodone 200mg hs which alone doesn't manage her sleep.Have tried trazodone 400mg in the past w/o benefit prior to starting care with this typewriter assembler. Been taking lunesta for 2 years. Have tried restoril in the past w/o benefit. Other meds that she has tried are : Crest("I was afraid of it because of blood [...] PTSD symptoms. No red flag per pdmp [place]-SUICIDE SEVERITY RATING SCALE Frequent Screener Ask [...] for suspectedopioid overdose. Seek immediate medical attention. [email or web address]://[email or web address]/[email or web address]?v=[email or web address] 1 Each 3 NovoLIN R ReliOn 100 UNIT/ML Injection Solution (insulin REGULAR human) INJECT UP TO 200 UNITS SUBCUTANEOSULY ONCE DAILY VIA PUMP 60 mL 0 Ondansetron 8 MG Oral Tablet Disintegrating (Zofran) PLACE 1 TABLET ON TONGUE AND DISSOLVE EVERY 8 HOURS NEEDED FOR NAUSEA 30 Tablet 0 Pregabalin 100 MG Oral Capsule (Lyrica) Take 1 Capsule by mouth in the morning and 1 Capsule at noon and 1 Capsule before bedtime. 300 Capsule 1 Ozempic (2 MG/DOSE) 8 MG/3ML Subcutaneous Solution Pen-injector (Semaglutide (2 MG/DOSE)) Inject under the skin. Obtaining from [employer] Atorvastatin Calcium 40 MG Oral Tablet (Lipitor) Take 1 Tablet by mouth at bedtime. 90 Tablet 2 Escitalopram Oxalate 20 MG Oral Tablet (Lexapro) Take 1 Tablet by mouth in the morning. 90 Tablet 0 Empagliflozin 10 MG Oral Tablet (Jardiance) Take 1 Tablet by mouth in the morning. 90 Tablet 2 Magnesium Oxide -Mg Supplement 400 (240 Mg) MG Oral Tablet (Mag-Ox) Take 1 Tablet by mouth in the morning. 90 Tablet 2 Pantoprazole Sodium 40 MG Oral Tablet Delayed [...] the morning. For allergies.. 90 Tablet 3 Buprenorphine 5 MCG/HR Transdermal Patch Weekly (Butrans) Place 1 Patch topically on the skin once a week. 4 Patch 0 Dicyclomine HCl 20 MG Oral Tablet (Bentyl) Take 1 Tablet by mouth 2 times a day as needed (pain or cramping). 180 Tablet 2 Eszopiclone 2 MG Oral Tablet (Lunesta) Take 1 Tablet by mouth at bedtime. 30 Tablet 1 No current facility-administered medications for this visit. RECENT LABS/IMAGING: Recent Results (from the past 4 weeks) FERRITIN Collection Time: 06/14/24 2:20 PM Result Value Ref Range Ferritin 239 (H) 13 - 150 ng/mL IRON SCREEN, INCLUDING TIBC Collection Time: 06/14/24 2:20 PM Result Value Ref Range Iron 67 33 - 151 ug/dL Iron Binding Capacity 272 250 - 425 ug/dL Transferrin Saturation Percent 25 15 - 55 % BASIC METABOLIC PANEL Collection Time: 06/14/24 2:20 PM Result Value Ref Range BUN 25 (H) 6 - 20 mg/dL CREATININE 1.5 (H) 0.5 - 1.0 mg/dL EGFR 41 (L) >=60 mL/min SODIUM 140 135 - 146 mmol/L POTASSIUM 4.2 3.5 - 5.1 mmol/L CHLORIDE 101 98 - 107 mmol/L CO2 27 22 - 32 mmol/L ANION GAP 12 7 - 15 mmol/L GLUCOSE 204 (H) 70 - 120 mg/dL CALCIUM 8.8 8.4 - 10.2 mg/dL CBC Collection Time: 06/14/24 2:20 PM Result Value Ref Range WBC 5.96 4.00 - 10.80 K/uL RBC 4.03 3.85 - 5.15 M/uL HGB 11.2 (L) 12.0 - 15.3 g/dL HCT 35.1 (L) 36.0 - 45.2 % MCV 87.1 81.5 - 97.5 fL MCH 27.8 27.0 - 34.0 pg MCHC 31.9 32.0 - 36.0 g/dL RDW 17.3 11.5 - 15.5 % PLT 71 (L) 140 - 400 K/uL MPV 10.4 6.6 - 11.1 fL DIFFERENTIAL, AUTOMATED Collection Time: 06/14/24 2:20 PM Result Value Ref Range WBC 5.96 4.00 - 10.80 K/uL Neutrophils % 67.3 40.0 - 75.0 % Lymphocytes % 18.6 18.0 - 42.0 % Monocytes % 8.1 1.0 - 11.0 % Eosinophils % 5.5 0.0 - 6.0 % Basophils % 0.5 0.0 - 2.0 % Absolute Neutrophils 4.01 1.80 - 7.70 K/uL Absolute Lymphocytes 1.11 1.00 - 4.80 K/ul Absolute Monocytes 0.48 0.00 - 1.10 K/uL Absolute Eosinophils 0.33 0.00 - 0.70 K/uL Absolute Basophils 0.03 0.00 - 0.20 K/uL DIFFERENTIAL, TECHNOLOGIST REVIEW Collection Time: 06/14/24 2:20 PM Result Value Ref Range nRBCs Elliptocytes Moderate (A) None Seen VITALS There were no vitals filed for [...] pump 200 Strip 5 Insulin Infusion Pump (MINIMFood Quality Sensor International 630G INSULIN PUMP) KIT Use as directed. CPAP every night at bedtime. Glucagon Emergency 1 MG Injection Kit As directed 1 Kit 3 Naloxone HCl 4 MG/0.1ML Nasal Liquid (Narcan Nasal) Administer 1 spray into 1 nostril for suspectedopioid overdose. Seek immediate medical attention. [email or web address] 1 Each 3 NovoLIN R ReliOn 100 UNIT/ML Injection Solution (insulin REGULAR human) INJECT UP TO 200 UNITS SUBCUTANEOSULY ONCE DAILY VIA PUMP 60 mL 0 Ondansetron 8 MG Oral Tablet Disintegrating (Zofran) PLACE 1 TABLET ON TONGUE AND DISSOLVE EVERY 8 HOURS NEEDED FOR NAUSEA 30 Tablet 0 Pregabalin 100 MG Oral Capsule (Lyrica) Take 1 Capsule by mouth in the morning and 1 Capsule at noon and 1 Capsule before bedtime. 300 Capsule 1 Ozempic (2 MG/DOSE) 8 MG/3ML Subcutaneous Solution Pen-injector (Semaglutide (2 MG/DOSE)) Inject under the skin. Obtaining from [employer] Atorvastatin Calcium 40 MG Oral Tablet (Lipitor) Take 1 Tablet by mouth at bedtime. 90 Tablet 2 Escitalopram Oxalate 20 MG Oral Tablet (Lexapro) Take 1 Tablet by mouth in the morning. 90 Tablet 0 Empagliflozin 10 MG Oral Tablet (Jardiance) Take 1 Tablet by mouth in the morning. 90 Tablet 2 Magnesium Oxide -Mg Supplement 400 (240 Mg) MG Oral Tablet (Mag-Ox) Take 1 Tablet by mouth in the morning. 90 Tablet 2 Pantoprazole Sodium 40 MG Oral Tablet Delayed [...] the morning. For allergies.. 90 Tablet 3 Buprenorphine 5 MCG/HR Transdermal Patch Weekly (Butrans) Place 1 Patch topically on the skin once a week. 4 Patch 0 Dicyclomine HCl 20 MG Oral Tablet (Bentyl) Take 1 Tablet by mouth 2 times a day as needed (pain or cramping). 180 Tablet 2 Eszopiclone 2 MG Oral Tablet (Lunesta) Take 1 Tablet by mouth at bedtime. 30 Tablet 1 No current facility-administered medications for [...] goal of less than 8.0% (HCC) 06/22/2014 SUMMARY OF/CHANGES TO PAST PSYCHIATRIC, MEDICAL, [...] (+) uses cane to ambulate, h/o stroke Endocrine: (-) negative: no weight change, heat [...] rate, tone and volume Mood: "am ok except this insurance stuff" Affect: type - euthymic; range - full [...] Depression ASSESSMENT AND PLAN: PTSD, MICHELLE and MDD, in remission Plan: Medications: continue Lexapro 20 daily, hydroxyzine: 25mg TID PRN-take up to thee times a day, Trazodone 200 mg QHS, Lunesta 2 mg QHS and on lyrica and buprenorphine patch for pain Therapy: declined need for therapy, finds it [...] by activating mobile crisis teams and EMS. Nhi Fritz, TREER [facility] 07/07/2024 documented in this encounter Plan of Treatment Upcoming Encounters Date Type Department Care Team (Late st Contact Info) Description 07/19/2024 8:30 AM EST Imaging Radiology [facility] [place] [address] [place] [address] 07/19/2024 9:30 AM EST Imaging Radiology [facility] 1st Floor, [place] [address] [place] [address] 07/20/2024 10:00 AM EST Imaging [facility] II 2nd Floor Cardiology, [place] [address] [place] [address] 08/08/2024 10:30 AM EST Hem/Onc Treatment Hematology/Oncology Treatment, [place] [address] [place] [address] 08/09/2024 1:00 PM EST Telemedicine Nutrition, [facility] [address] [place] [address] Sharon Cabello RDN [address] [facility] [place] [address] 08/11/2024 12:30 PM EST Telemedicine Psychiatry [facility] [address] [place] [phone] Nhi Fritz CRNP 68 [place] [address] 08/12/2024 10:30 AM EST Office Visit Pharmacy, Jayesh Regan [address] [place] [phone] Jayesh [facility] [address] [place], [place] [address] [address] 09/14/2024 2:00 PM EDT Office Visit Hematology/Oncology [facility] [address] [place], [place] [address] Sunil Bourgeois MD [address] [place] [address] 09/15/2024 9:30 AM EDT Telemedicine Pharmacy, [facility] 132 [facility] [place] [address] [facility] [place] [address] 09/29/2024 1:00 PM EDT Office Visit [facility] [address] [facility] [place] [address] Jadiel Epstein CRNP [address] [facility] [place] [address] 10/18/2024 2:20 PM EDT Telemedicine Hepatology, [facility] [address] [place], [place] [phone] [facility] [address] [place], [place] [phone] 12/14/2024 12:20 PM EDT Office Visit [facility] [address] [facility] [place] [address] Scott Weldon MD [address] [facility] [place] [address] 03/13/2025 2:00 PM EDT Office Visit [facility]ph[facility], [facility] [address] [place] [address] Jonathan Mathew MD [address] [place] [address] 06/16/2025 11:40 AM EST Office Visit [facility] [address] [facility] [place] [address] Scott Weldon MD [address] [place] [address] Scheduled Procedures Name Priority Associated Diagnoses Date/Ti [...] encounter Medical Devices Implanted Type Area Sap Portal Consultant Device Identifier Shelf Expiration Date Model / Serial / Lot Neurostimul Intellis Adaptiv - [id number] - [id number] Implanted:Qty: 1 on 08/22/2022 by Rafia Small MD at OR [facility] N/A: Spine Lumbar [employer] 06/21/2023 [id number] / [id number] / Description:battery Medtronic Lead Kit 60 Cm Implanted:Qty: 1 on 08/22/2022 by Rafia Small MD at OR [facility] N/A: Spine Lumbar 02/01/2026 [id number] / / [id number] Medtronic Lead Kit 60cm Implanted:Qty: 1 on 08/22/2022 by Rafia Small MD at OR [facility] N/A: Spine Lumbar 03/21/2026 [id number] / / [id number] Envelope Tyrx Med Antibacteril - [id number] Implanted:Qty: 1 on 08/22/2022 by Rafia Small MD at OR [facility] N/A: Spine Lumbar [employer] 03/10/2023 [id number] / / [id number] Hemostatic Clip Res 235cm - [id number] Implanted:Qty: 4 on 10/05/2023 by Aj Pruett, DO at ENDOSCOPY [facility] : ENDOSCOPY 02/03/2026 [id number] / / Hemostatic Clip Res 235cm - [id number] Implanted:Qty: 1 on 10/05/2023 by Aj Pruett, DO at ENDOSCOPY [facility] : ENDOSCOPY 02/02/2026 [id number] / / documented as of this encounter Visit Diagnoses Diagnosis PTSD (post-traumatic stress disorder)- Primary Posttraumatic stress disorder MDD (major depressive disorder), recurrent, in full remission (HCC) Major depressive disorder, recurrent episode, in full remission MICHELLE (generalized anxiety disorder) Generalized anxiety disorder Insomnia, unspecified type documented in this encounter Advance Directives * [...] Power of Attor narda? No Care Teams It Infrastructure Architect Relationship Specialty Start Date End Date Scott Weldon MD 132 [facility] [place] [address] PCP - General Family Medicine 08/03/18 documented as of this encounter
--- OUTSIDE RECORDS SUMMARY | 2024-09-10 21:21 | External Medical Summary | Summary of Care ---
Author Name Unknown Organization [facility] Address [address] [facility] [place] [address] Phone [phone] Care Team Providers Care Back Grinder Name Role Phone Scott Weldon MD Primary Care Provider + Encounter Details Date Type Department Care Team (Late st Contact Info) Description 07/11/2024 Orders Only PATIENT PORTAL DO NOT DELETE THIS DEPT USED BY [place] FRIEND [phone] Allergies Active Allergy Reactions Criticality Noted Date Comments Naproxen Sodium Bleeding High 11/29/2013 Pollen 12/03/2022 Seasonal Food (See Comments) Anaphylaxis High 04/20/2019 Hot peppers (oils) Kiwi Extract Anaphylaxis High 04/20/2019 documented as of this encounter (statuses as of 07/11/2024) Medications insulin glargine (LANTUS SOLOSTAR) 100 UNIT/ML [...] suspected opioid overdose. Seek immediate medical attention. [email or web address]://[email or web address]/[email or web address]?v=[email or web address] 1 Each 3 11/28/19 23 Active NovoLIN [...] MG/DOSE)) Inject under the skin. Obtaining from [place] Active Atorvastatin Calcium 40 MG Oral Tablet [...] as of this encounter (statuses as of 07/11/2024) Active Problems Problem Noted Date Diagnosed Date [...] as of this encounter (statuses as of 07/11/2024) Resolved Problems Problem Noted Date Diagnosed Date [...] (09/03/2009): Per Obesity Taxonomy Coronary atherosclerosis of [place] [...] as of this encounter (statuses as of 07/11/2024) Immunizations Name Administration Dates Next Due COVID-19 mRNA, LNP-s, No Pre serve, 2-Dose Series ([employer]) 11/08/2020,10/11/2020 HEP A - Hepatitis A (Adult > 18 yrs) 04/11/2011, 09/20/2010 Hepatitis B, 20+ yrs 07/05/2015 Pneumococcal Conjugate Vacci ne, 20-valent ([id number]) 03/13/2023 Pneumococcal Polysaccharide PPV23 (Pneumovax) 02/19/2018,03/09/2007 Seasonal [...] No 05/17/2024 Does the household have a [facility] source of income? (Household - for [...] Entry Date Author No 04/20/2019 10:25 AM Tersea Gonzalez LPN documented in this encounter Plan of Treatment Upcoming Encounters Date Type Department Care Team (Late st Contact Info) Description 07/12/2024 10:10 AM EST [facility] [phone] Jayesh [facility] [address] [facility] [address] 07/20/2024 10:00 AM EST Imaging [facility] 2nd Floor Cardiology, [place] [address] [facility] [place] [phone] 08/08/2024 10:30 AM EST Hem/Onc Treatment Hematology/Oncology Treatment, [place] [address] [place] [address] 08/11/2024 12:30 PM EST Telemedicine [facility]iatry [facility] [phone] Nhi Fritz CRNP 68 [facility] [place] [phone] 09/14/2024 2:00 PM EDT Office Visit Hematology/Oncology [facility] [address] [facility] [place] [address] Sunil Bourgeois MD [address] [facility] [address] 09/15/2024 9:30 AM EDT Telemedicine Pharmacy, [facility] [address] [place] [address] [facility] [address] [place], [place] [address] 09/29/2024 1:00 PM EDT Office Visit [facility] [address] [place] [address] Jadiel Epstein CRNP [address] [place] [address] 10/18/2024 2:20 PM EDT Telemedicine Hepatology, [place] [address] [place], [place] [phone] [facility] [address] [place], [place] [phone] 12/14/2024 12:20 PM EDT Office Visit [facility] [address] [place] [address] Scott Weldon MD [facility] [place] [address] 03/13/2025 2:00 PM EDT Office Visit Nephrology, [facility] [address] [place] [address] Jonathan Mathew MD [address] [place] [address] 06/16/2025 11:40 AM EST Office Visit [facility] [address] [place] [address] Scott Weldon MD [address] [place] [address] Scheduled Procedures Name Priority Associated Diagnoses Date/Ti [...] this encounter Medical Devices Implanted Type Area Centrifugal Casting Machine Operator Device Identifier Shelf Expiration Date Model / Serial / Lot Neurostimul Intellis Adaptiv - [id number] - [id number] Implanted:Qty: 1 on 08/22/2022 by Rafia Small MD at OR [facility] N/A: Spine Lumbar [employer] 06/21/2023 [id number] / [id number] / Description:battery Medtronic Lead Kit 60 Cm Implanted:Qty: 1 on 08/22/2022 by Rafia Small MD at OR [facility] N/A: Spine Lumbar 02/01/2026 [id number] / / [id number] Medtronic Lead Kit 60cm Implanted:Qty: 1 on 08/22/2022 by Rafia Small MD at OR [facility] N/A: Spine Lumbar 03/21/2026 [id number] / / [id number] Envelope Tyrx Med Antibacteril - [id number] Implanted:Qty: 1 on 08/22/2022 by Rafia Small MD at OR [facility] N/A: Spine Lumbar [employer] 03/10/2023 [id number] / / [id number] Hemostatic Clip Res 235cm - [id number] Implanted:Qty: 4 on 10/05/2023 by Aj Pruett DO at ENDOSCOPY [facility] : ENDOSCOPY 02/03/2026 [id number] / / Hemostatic Clip Res 235cm - [id number] Implanted:Qty: 1 on 10/05/2023 by Aj Pruett DO at ENDOSCOPY [facility] : ENDOSCOPY 02/02/2026 [id number] / / documented as of this encounter [...] Power of Attor narda? No Care Teams Back Grinder Relationship Specialty Start Date End Date Scott Weldon MD 132 [facility] [place] [address] PCP - General Family Medicine 08/03/18 documented as of this encounter
--- OUTSIDE RECORDS SUMMARY | 2024-09-10 21:21 | External Medical Summary | Summary of Care ---
Author Name Unknown Organization [facility] Address [address] [place] [address] Phone [phone] Care Team Providers Care Tool Tender Name Role Phone Scott Weldon MD Primary Care Provider + Reason for Referral * Precert (Within 10 days (routine)) - Pending Review Specialty Diagnoses / Procedures Referred By Dory t Referred To Contact Radiology Diagnoses Alkaline phosphatase elevation Cirrhosis of liver with ascites, unspecified hepatic cirrhosis type (HCC) Procedures CT ABD/PELVIS WO IV/ORAL CONTRAST Adam Bradshaw CRNP [address] [place] [address] Phone: tel: fax: Referral ID Status Reason Start Date Expiration Date V isits Requested Visits Authorized [id number] Pending Review 07/18/2024 999 999 Reason for Visit * Reason Onset Date Comments Test Results Lab 07/11/2024 Encounter Details Date Type Department Care Team (Late st Contact Info) Description 07/11/2024 Telephone Gastroenterology, [facility] [address] [place] [address] Adam Bradshaw CRNP [address] [place] [id number] Test Results Lab Allergies Active Allergy Reactions Criticality Noted Date Comments Naproxen Sodium Bleeding High 11/29/2013 Pollen 12/03/2022 Seasonal Food (See Comments) Anaphylaxis High 04/20/2019 Hot peppers (oils) Kiwi Extract Anaphylaxis High 04/20/2019 documented as of this encounter (statuses as of 07/12/2024) Medications insulin glargine (LANTUS SOLOSTAR) 100 UNIT/ML SOPN 50 units daily in case of pump malfunction 5 Pre-filled Pen Syringe Dosing Unit 3 12/31/19 16 Active B-D Ultrafine III, 5MM, Pen MISC Use as directed. 100 Pre-filled Pen Syringe Dosing Unit 3 12/31/19 16 Active Glucose Blood (GLSS CONTOUR NEXT TEST) STRP Use to test blood sugar up to 6 times per day. E11.9 These are the ONLY test strips patient can use with insulin pump 200 Strip 5 02/18/20 17 Active Insulin Infusion Pump (MINIMBusuu 630G INSULIN PUMP) KITIndications:Typ e 2 diabetes mellitus with hemoglobin A1c goal of less than 8.0% ([facility]) Use as directed. 07/30/19 18 Active CPAP every night at bedtime. Active Glucagon Emergency 1 MG Injection Kit As directed 1 Kit 3 09/05/19 23 Active Naloxone HCl 4 MG/0.1ML Nasal Liquid (Narcan Nasal)Indications: Controlled substance agreement signed,Chronic pain syndrome Administer 1 spray into 1 nostril for suspected opioid overdose. Seek immediate medical attention. [email or web address]://[email or web address] [email or web address]/[email or web address]?v=[email or web address] 1 Each 3 11/28/19 23 Active NovoLIN [...] MG/DOSE)) Inject under the skin. Obtaining from Tk20 Active Atorvastatin Calcium 40 MG Oral Tablet [...] as of this encounter (statuses as of 07/12/2024) Active Problems Problem Noted Date Diagnosed Date [...] as of this encounter (statuses as of 07/12/2024) Resolved Problems Problem Noted Date Diagnosed Date [...] (09/03/2009): Per Obesity Taxonomy Coronary atherosclerosis of [place] coronary artery 09/15/2008 10/03/2008 Malaise and [...] as of this encounter (statuses as of 07/12/2024) Immunizations Name Administration Dates Next Due COVID-19 mRNA, LNP-s, No Pre serve, 2-Dose Series ([employer]) 11/08/2020,10/11/2020 HEP A - Hepatitis A (Adult > 18 yrs) 04/11/2011, 09/20/2010 Hepatitis B, 20+ yrs 07/05/2015 Pneumococcal Conjugate Vacci ne, 20-valent ([id number]) 03/13/2023 Pneumococcal Polysaccharide PPV23 (Pneumovax) 02/19/2018,03/09/2007 Seasonal [...] do you feel lonely or isolated from ose around you? Never 05/17/2024 Financial Resource [...] Telephone Encounter - Adam Bradshaw CRNP - 07/11/2024 3:00 PM EST Pt w cirrhosis. Labs w sig elevated Alk Phos. 5nucleotidase, ggt and CTAP ordered. Unable to get IV contrast. Schedulers - please reach out to arrange US liver, non contrast CTAP. documented in this encounter Plan of Treatment Upcoming Encounters Date Type Department Care Team (Late st Contact Info) Description 07/12/2024 10:10 AM EST Office Visit Pharmacy, Jayesh Miller [address] [place] [phone] Jayesh [facility] [address] [place] [address] [place] [address] 07/19/2024 8:30 AM EST Imaging Radiology [facility], [place] [address] [facility] [place] [address] 07/19/2024 9:30 AM EST Imaging Radiology [facility] 1st Floor, [place] [address] [place] [address] 07/20/2024 10:00 AM EST Imaging [facility] 2nd Floor Cardiology, [place] 132 [facility] [place] [address] 08/08/2024 10:30 AM EST Hem/Onc Treatment Hematology/Oncology Treatment, [place] [address] [place], [place] [phone] 08/11/2024 12:30 PM EST Telemedicine Psychiatry [facility] [address] [place] [phone] Nhi Fritz CRNP [address] [place] [address] 09/14/2024 2:00 PM EDT Office Visit Hematology/Oncology [facility] [address] [place] [phone] Sunil Bourgeois MD [address] [place] [address] 09/15/2024 9:30 AM EDT Telemedicine Pharmacy, [facility] [address] [facility] [place] [address] [place] [address] 09/29/2024 1:00 PM EDT Office Visit [facility] [address] [place] [address] Lucian JadielNOEL [address] [place] [address] 10/18/2024 2:20 PM EDT Telemedicine Hepatology, [place] [address] [place], [place] [phone] Enid Saldana [address] [place], [place] [phone] 12/14/2024 12:20 PM EDT Office Visit [facility] [address] [place] [address] Scott Weldon MD [facility] [place] [address] 03/13/2025 2:00 PM EDT Office Visit Nephrology, [facility] 200 [facility] [place] [address] Jonathan Mathew MD 200 [facility] [place] [address] 06/16/2025 11:40 AM EST Office Visit [facility] [address] [place] [address] Scott Weldon MD 132 [facility] [place] [address] Scheduled Orders Name Type Priority Associated Diagnoses Orde r Schedule GGTP Lab Routine Alkaline phosphatase elevation Expected: 07/11/2024, Expires: 07/11/2025 5' NUCLEOTIDASE Lab Routine Alkaline phosphatase elevation Expected: 07/11/2024, Expires: 07/11/2025 CT ABD/PELVIS WO IV/ORAL CONTRAST Medical Imaging Routine Alkaline phosphatase elevation Cirrhosis of liver with ascites, unspecified hepatic cirrhosis type (HCC) Expected: 07/18/2024, Expires: 08/08/2025 Scheduled Procedures Name Priority Associated Diagnoses Date/Ti [...] 09/08/2023, 01/0 09/2022, 06/14/2020, Additional history exists HbA1c 11/14/2024 05/16/2024, 06/0 12/2023, 07/23/2023, Additional history exists Diabetic Eye [...] this encounter Medical Devices Implanted Type Area Longshore Equipment Operator Device Identifier Shelf Expiration Date Model / Serial / Lot Neurostimul Intellis Adaptiv - [id number] - [id number] Implanted:Qty: 1 on 08/22/2022 by Rafia Small MD at OR [facility] N/A: Spine Lumbar [employer] 06/21/2023 [id number] / [id number] / Description:battery Medtronic Lead Kit 60 Cm Implanted:Qty: 1 on 08/22/2022 by Rafia Small MD at OR [facility] N/A: Spine Lumbar 02/01/2026 [id number] / / [id number] Medtronic Lead Kit 60cm Implanted:Qty: 1 on 08/22/2022 by Rafia Small MD at OR [facility] N/A: Spine Lumbar 03/21/2026 [id number] / / [id number] Envelope Tyrx Med Antibacteril - [id number] Implanted:Qty: 1 on 08/22/2022 by Rafia Small MD at OR [facility] N/A: Spine Lumbar [employer] 03/10/2023 [id number] / / [id number] Hemostatic Clip Res 235cm - [id number] Implanted:Qty: 4 on 10/05/2023 by Aj Pruett, DO at ENDOSCOPY [facility] : ENDOSCOPY 02/03/2026 [id number] / / Hemostatic Clip Res 235cm - [id number] Implanted:Qty: 1 on 10/05/2023 by Aj Pruett, DO at ENDOSCOPY [facility] : ENDOSCOPY 02/02/2026 [id number] / / documented as of this encounter Visit Diagnoses Diagnosis Alkaline phosphatase elevation- Primary Other nonspecific abnormal serum enzyme levels Cirrhosis of liver with ascites, unspecified hepatic cirrhosis type (HCC) documented [...] Power of Attor narda? No Care Teams Tool Tender Relationship Specialty Start Date End Date Scott Weldon MD [address] [place] [address] PCP - General Family Medicine 08/03/18 documented as of this encounter
--- OUTSIDE RECORDS SUMMARY | 2024-09-10 21:21 | External Medical Summary | Summary of Care ---
Author Name Unknown Organization [facility] Address [address] [facility] [address] Phone [phone] Care Team Providers Care Eligibility And Occupancy Interviewer Name Role Phone Scott Weldon MD Primary Care Provider + Reason for Visit * Reason Comments IV Therapy Venofer Procedure Labs from port, TPA Encounter Details Date Type Department Care Team (Latest Contact Info) Description 07/11/2024 10:00 AM EST Hem/Onc Treatment Hematology/Oncology Treatment, [place] [address] [place] [address] Iron deficiency anemia due to [...] 5 02/18/20 17 Active Insulin Infusion Pump (MINIMCloutex 630G INSULIN PUMP) KITIndications:Typ e 2 diabetes [...] suspected opioid overdose. Seek immediate medical attention. [email or web address] 1 Each 3 11/28/19 23 Active NovoLIN [...] MG/DOSE)) Inject under the skin. Obtaining from We[employer] Active Atorvastatin Calcium 40 MG Oral Tablet [...] (09/03/2009): Per Obesity Taxonomy Coronary atherosclerosis of summit [...] yrs 07/05/2015 Pneumococcal Conjugate Vacci ne, 20-valent ([id number]) 03/13/2023 Pneumococcal Polysaccharide PPV23 (Pneumovax) 02/19/2018,03/09/2007 Seasonal [...] for effectiveness, appropriate waste drawn for labs. Field Representative/Health Education came to drawn peripheral PT/INR. Venofer started, [...] Description 07/12/2024 10:10 AM EST Office [facility] [address] [facility] [phone] Jayesh [place] [phone] [facility] [place] [address] 07/19/2024 8:30 AM EST Imaging Radiology [facility] [address] [place] [phone] 07/19/2024 9:30 AM EST Imaging Radiology [facility] 1st Floor, [place] [address] [place] [phone] 07/20/2024 10:00 AM EST Imaging [facility] II 2nd Floor Cardiology, [place] [address] [place] [phone] 08/08/2024 10:30 AM EST Hem/Onc Treatment Hematology/Oncology Treatment, [place] [address] [place] [phone] 08/11/2024 12:30 PM EST Telemedicine Psychiatry [facility] [address] [place] [phone] Nhi Fritz CRNP [address] [place] [address] 09/14/2024 2:00 PM EDT Office Visit Hematology/Oncology [facility] [address] [facility] [place] [phone] Sunil Bourgeois MD 200 [facility] [address] 09/15/2024 9:30 AM EDT Telemedicine Pharmacy, [facility] [address] [place] [address] [facility] [place] [address] 09/29/2024 1:00 PM EDT Office Visit Family Practice [facility] [address] [place] [address] Jadiel Epstein CRNP [address] [place] [address] 10/18/2024 2:20 PM EDT Telemedicine Hepatology, [place] [address] [place] [address] Enid Saldana DO [address] [place] [address] 12/14/2024 12:20 PM EDT Office Visit [facility] [address] [place] [address] Scott Weldon MD 132 [facility] [place] [address] 03/13/2025 2:00 PM EDT Office Visit Nephrology, [facility] [address] [place] [address] Jonathan Mathew MD [address] [facility] [place] [address] 06/16/2025 11:40 AM EST Office Visit [facility] [address] [place] [address] Scott Weldon MD 132 [facility] [place] [address] Scheduled Procedures Name Priority Associated Diagnoses Date/Ti [...] 11/07/2019, Additional history exists Mammogram 09/01/2024 09/02/2023, 11, 01/21/2016 B-12 09/07/2024 09/08/2023, 0 09/2022, 06/14/2020, [...] this encounter Medical Devices Implanted Type Area Phlebotomist Prn Device Identifier Shelf Expiration Date Model / Serial / Lot Neurostimul Intellis Adaptiv - [id number] - [id number] Implanted:Qty: 1 on 08/22/2022 by Rafia Small MD at OR [facility] N/A: Spine Lumbar [employer] 06/21/2023 [id number] / [id number] / Description:battery Medtronic Lead Kit 60 Cm Implanted:Qty: 1 on 08/22/2022 by Rafia Small MD at OR [facility] N/A: Spine Lumbar 02/01/2026 [id number] / / [id number] Medtronic Lead Kit 60cm Implanted:Qty: 1 on 08/22/2022 by Rafia Small MD at OR [facility] N/A: Spine Lumbar 03/21/2026 [id number] / / [id number] Envelope Tyrx Med Antibacteril - [id number] Implanted:Qty: 1 on 08/22/2022 by Rafia Small MD at OR [facility] N/A: Spine Lumbar [employer] 03/10/2023 [id number] / / [id number] Hemostatic Clip Res 235cm - [id number] Implanted:Qty: 4 on 10/05/2023 by Aj Pruett DO at END[facility]COPY [facility] 02/03/2026 [id number] / / Hemostatic Clip Res 235cm - [id number] Implanted:Qty: 1 on 10/05/2023 by Aj Pruett DO at [facility] : ENDOSCOPY 02/02/2026 [id number] / / documented as of this encounter [...] - 15.2 seconds 07/11/2024 12:15 PM EST [facility] 56- INR 1.1 0.8 - 1.2 07/11/2024 12:15 PM EST [facility] 56- Blood Venous blood specimen / Unknown Central Line / Unknown 07/11/2024 10:12 AM EST 07/11/2024 11:48 AM EST Narrative [facility] 56-02 - 07/11/2024 12:15 PM EST Warfarin Therapy INR: 2.0-3.0 conventional anticoagulation INR: 2.5-3.5 high intensity anticoagulation us Adam COHEN LAB BLOOD ORDERABLES Final Result [facility] 56-02 [address] [place] [address] * DIFFERENTIAL, TECHNOLOGIST REVIEW (07/11/2024 10:00 AM EST) nRBCs 07/11/2024 12:06 PM EST [facility] 56-02 Blood Venous blood specimen / Unknown Central Line / Unknown 07/11/2024 10:00 AM EST 07/11/2024 11:48 AM EST us Sunil Bourgeois MD LAB BLOOD ORDERABLES Final Res ult [facility] 56-[address] [place] [address] * (ABNORMAL) DIFFERENTIAL, AUTOMATED (07/11/2024 10:00 AM EST) WBC 4.47 4.00 - 10.80 K/uL 07/11/2024 12:06 PM EST [facility] 56-02 Neutrophils % 68.8 40.0 - 75.0 % 07/11/2024 12:06 PM EST [facility] 56-02 Lymphocytes % 18.3 18.0 - 42.0 % 07/11/2024 12:06 PM EST [facility] 56-02 Monocytes % 7.4 1.0 - 11.0 % 07/11/2024 12:06 PM EST [facility] 56-02 Eosinophils % 5.1 0.0 - 6.0 % 07/11/2024 12:06 PM EST [facility] 56-02 Basophils % 0.4 0.0 - 2.0 % 07/11/2024 12:06 PM EST [facility] 56-02 Absolute Neutrophils 3.07 1.80 - 7.70 K/uL 07/11/2024 12:06 PM EST [facility] 56-02 Absolute Lymphocytes 0.82(L) 1.00 - 4.80 K/ul 07/11/2024 12:06 PM EST [facility] 56-02 Absolute Monocytes 0.33 0.00 - 1.10 K/uL 07/11/2024 12:06 PM EST [facility] 56-02 Absolute Eosinophils 0.23 0.00 - 0.70 K/uL 07/11/2024 12:06 PM EST [facility] 56-02 Absolute Basophils 0.02 0.00 - 0.20 K/uL 07/11/2024 12:06 PM EST [facility] 56-02 Blood Venous blood specimen / Unknown Central Line / Unknown 07/11/2024 10:00 AM EST 07/11/2024 11:48 AM EST Sunil Bourgeois MD LAB BLOOD ORDERABLES Final Res ult [facility] 56- [address] [facility] [place] [address] * (ABNORMAL) CBC (07/11/2024 10:00 AM EST) Pathologist [facility] WBC 4.47 4.00 - 10.80 K/uL 07/11/2024 12:06 PM EST [facility] 56- RBC 4.05 3.85 - 5.15 M/uL 07/11/2024 12:06 PM EST [facility] 56 HGB 11.4(L) 12.0 - 15.3 g/dL 07/11/2024 12:06 PM [facility] 56- HCT 35.2(L) 36.0 - 45.2 % 07/11/2024 12:06 PM [facility] 56- MCV 86.9 81.5 - 97.5 fL 07/11/2024 12:06 PM [facility] 56- MCH 28.1 27.0 - 34.0 pg 07/11/2024 12:06 PM EST [facility] 5602 MCHC 32.4 32.0 - 36.0 g/dL 07/11/2024 12:06 PM [facility] 56- RDW 15.5 11.5 - 15.5 % 07/11/2024 12:06 PM [facility] 56-02 PLT 48(L) 140 - 400 K/uL 07/11/2024 12:06 PM [facility] 56- MPV 9.9 6.6 - 11.1 fL 07/11/2024 12:06 PM [facility] 56-02 Blood Venous blood specimen / Unknown Central Line / Unknown 07/11/2024 10:00 AM EST 07/11/2024 11:48 AM EST us Sunil Bourgeois MD LAB BLOOD ORDERABLES Final Res ult [facility] 56- [address] [facility] [place] [address] * IRON SCREEN, INCLUDING TIBC (07/11/2024 10:00 AM EST) Iron 77 33 - 151 ug/dL 07/12/2024 12:46 AM EST LAB[facility]ORY [facility] Iron Binding Capacity 258 250 - 425 ug/dL 07/12/2024 12:46 AM EST LABOR[facility]ORY [facility] Transferrin Saturation Percent 30 15 - 55 % 07/12/2024 12:46 AM EST [facility]ORY [facility] Blood Venous blood specimen / Unknown Central Line / Unknown 07/11/2024 10:00 AM EST 07/11/2024 11:48 AM EST Sunil Buorgeois MD LAB BLOOD ORDERABLES Final Res t [facility]OR[facility] [address] [place] [address] * (ABNORMAL) FERRITIN (07/11/2024 10:00 AM EST) Pathologist [facility] Ferritin 306(H) 13 - 150 ng/mL 07/12/2024 1:19 AM EST [facility]OR[facility]ORY [facility] Comment:Postmenopausal women have higher ferritin levels than pre-menopausal women. The above reference interval is based on pre-menopausal women. Blood Venous blood specimen / Unknown Central Line / Unknown 07/11/2024 10:00 AM EST 07/11/2024 11:48 AM EST Sunil Bourgeois MD LAB BLOOD ORDERABLES Final Res t LABORATORY [facility] [address] [place] [address] documented in this encounter Visit Diagnoses Diagnosis [...] 2.2 mL of Sterile Water for Injection, CARE HOME, into the vial, directing the diluent stream [...] patient have Health Care Power of Attor nrada? No Care Teams Eligibility And Occupancy Interviewer Relationship Specialty Start Date End Date Scott Weldon MD [address] [place] [address] PCP - General Family Medicine 08/03/18 documented as of this encounter
--- OUTSIDE RECORDS SUMMARY | 2024-09-10 21:21 | External Medical Summary | Summary of Care ---
Author Name Unknown Organization [facility] Address [address] [facility] [place] [address] Phone [phone] Care Team Providers Care Aircraft Instrument Repairer Name Role Phone Scott Weldon MD Primary Care Provider + Reason for Visit * Reason Comments Dosage Adjustment In Person (Anticoag Cl inic) Diabetes Follow-Up Insulin Pump Encounter Details Date Type Department Care Team (Late st Contact Info) Description 07/12/2024 10:10 AM EST [facility] [place] [facility] [address] [place] [address] Jayesh [facility] [address] [place] [address] Type 2 diabetes mellitus with hemoglobin A1c goal of less than 8.0% ([facility])* Allergies Active Allergy Reactions Criticality Noted Date [...] 5 02/18/20 17 Active Insulin Infusion Pump (MINIMHigher Learning Technologies 630G INSULIN PUMP) KITIndications:Typ e 2 [...] suspected opioid overdose. Seek immediate medical attention. [email or web address] 1 Each 3 11/28/19 23 Active NovoLIN R ReliOn 100 UNIT/ML Injection Solution (insulin REGULAR human)Indications: Type 2 diabetes mellitus with hemoglobin A1c goal of less than 8.0% (HCC),DM type 2, not at goal ([facility]) INJECT UP TO 200 UNITS SUBCUTANEOSULY ONCE [...] MG/DOSE)) Inject under the skin. Obtaining from [employer]only Active Atorvastatin Calcium 40 MG Oral Tablet [...] yrs 07/05/2015 Pneumococcal Conjugate Vacci ne, 20-valent ([id number]) 03/13/2023 Pneumococcal Polysaccharide PPV23 (Pneumovax) 02/19/2018,03/09/2007 Seasonal [...] of Assessment Author No 04/20/2019 10:25 AM Treesa Gonzalez LPN * Do you have serious [...] this encounter Progress Notes * Danielle Anderson, [facility] - 07/12/2024 10:15 AM EST Images from the original note [...] daily - waiting for new year eGFR 46 mL/min as of 07/11/24 at [facility] Ozempic 2 mg once weekly- pt has been off for 2 weeks now PCP advising she stop to see if stomach pain improves MedNapera Networks 630G - Schedule C Systems ([id number]) Infusion Set: Quick Set Insulin: Novolin R [...] Hyperglycemia symptoms present: none Recent Labs Units 05/16/24 1433 11/13/23 1007 07/23/23 1200 HEMOGLOBIN A1C - [facility] % 6.5* 6.3* 5.8* Recent Labs Units 07/11/24 1020 06/14/24 1420 05/16/24 1433 ESTIMATED GLOMERULAR FILTRATION RATE - [facility] mL/min 46* 41* 47* CREATININE - [facility] mg/dL 1.4* 1.5* 1.4* HYPERTENSION: Patient on ACEi/ARB: no, not taking BP Readings from Last 3 Encounters: 07/11/24 126/71 06/30/24 108/66 06/14/24 95/64 Blood pressure at goal: yes HYPERLIPIDEMIA: Recent [...] Vaccine () 02/07/2024 Diabetic Foot Exam 03/13/2024 ASSESSMENT & PLAN: ICD-10-CM 1. Type 2 diabetes mellitus with hemoglobin A1c goal of less than 8.0% ([facility]) E11.9 Considerations: - activity limited by chronic low back pain - obtaining ozempic and novolin R via PAP - RENAL function - Dexcom supplied by [facility] Medical Glycemic control is unstable and not at goal Patient agreeable to adjust medications as noted below. Basal settings continued although BG is above goal during the day, but I do not want to increase risk of lows. Will try to target BG control solely surrounding meals. ICR/fixed dose continued- patient is not carb counting, she was asked to start giving 12 unit preset bolus before supper and 10 unit preset bolus before her chocolate milk in the AM. ISF continued and patient encouraged to continue to give correction doses as needed. PCP has her off of ozempic for a month to see if her stomach problems improve. She will let me knowif she is to resume it, in which case we will need to apply for PAP. She is unable to afford her jardiance, will attempt to get it through PAP, and if denied, will try to get farxiga. Patient to SMBG at least 4 times daily, before each meal and at bedtime. Patient aware to contact clinic if any hypoglycemia before next visit. Reviewed rule of 15s. Reviewed appropriate management of hyperglycemia as noted in pump start documentation. MEDICATION CHANGES: yes, see below; preferred pharmacy[facility] Diabetic Medications: Metformin 1000mg once a day NOT CURRENTLY TAKING DUE TO $$ Jardiance 10 mg once daily - waiting for new year eGFR 46 mL/min as of 07/11/24 at [facility] Ozempic 2 mg once weekly- pt has been off for 2 weeks now PCP advising she stop to see if stomach pain improves [employer] ([id number]) Infusion Set: Quick Set Insulin: Novolin R [...] UP: Return to clinic in 4 weeks 08/12/2024 I spent a total of 40-54 minutes (exact time 54 mins) on the date of service in preparation, delivery, and documentation of the care provided to Carmen Tyson excluding any time spent in the performance of separately billed services. Danielle Anderson RPh Clinical Pharmacist - [facility] 07/12/2024, 10:15 AM documented in this encounter Plan of Treatment Upcoming Encounters Date Type Department Care Team (Late st Contact Info) Description 07/19/2024 8:30 AM EST Imaging Radiology [facility] [address] [place] [address] 07/19/2024 9:30 AM EST Imaging Radiology [facility] 1st Floor, [place] [address] [place] [address] 07/20/2024 10:00 AM EST Imaging [facility] II 2nd Floor Cardiology, [place] [address] [place] [address] 08/08/2024 10:30 AM EST Hem/Onc Treatment Hematology/Oncology Treatment, [place] [address] [facility] [phone] 08/09/2024 1:00 PM EST Telemedicine Nutrition, [facility] [address] [place] [address] Sharon Cabello, RDN [address] [place] [address] 08/11/2024 12:30 PM EST Telemedicine Psychiatry [facility] [address] [place] [phone] Nhi Fritz CRNP [address] [place] [address] 08/12/2024 10:30 AM EST Office Visit Pharmacy, Jayesh Regan [address] [facility] [place] [phone] Jayesh [facility] [address] [facility] [place] [address] 09/14/2024 2:00 PM EDT Office Visit Hematology/Oncology [facility] [address] [facility] [address] [place] [phone] Sunil Bourgeois MD [address] [place], [place] [address] 09/15/2024 9:30 AM EDT Telemedicine Pharmacy, [facility] [address] [place] [address] [facility] [address] [place] [address] 09/29/2024 1:00 PM EDT Office Visit [facility] [address] [place] [address] Jadiel Epstein CRNP [address] [place] [address] 10/18/2024 2:20 PM EDT Telemedicine Hepatology, [place] [address] [place], [place] [id number] Enid Saldana [address] [place] [address] 12/14/2024 12:20 PM EDT Office Visit [facility] [address] [place] [address] Scott Weldon MD [address] [place] [address] 03/13/2025 2:00 PM EDT Office Visit Nephrology, [facility] [place] [address] [place], [place] [address] Jonathan Mathew MD [address] [place], [place] [address] 06/16/2025 11:40 AM EST Office Visit [facility] [address] [place] [address] Scott Weldon MD [address] [place] [address] Scheduled Procedures Name Priority Associated Diagnoses Date/Ti [...] this encounter Medical Devices Implanted Type Area Saxophone Player Device Identifier Shelf Expiration Date Model / Serial / Lot Neurostimul Intellis Adaptiv - [id number] - [id number] Implanted:Qty: 1 on 08/22/2022 by Rafia Small MD at OR [facility] N/A: Spine Lumbar [employer] 06/21/2023 [id number] / [id number] / Description:battery Medtronic Lead Kit 60 Cm Implanted:Qty: 1 on 08/22/2022 by Rafia Small MD at OR [facility] N/A: Spine Lumbar 02/01/2026 [id number] / / [id number] Medtronic Lead Kit 60cm Implanted:Qty: 1 on 08/22/2022 by Rafia Small MD at OR [facility] N/A: Spine Lumbar 03/21/2026 [id number] / / [id number] Envelope Tyrx Med Antibacteril - [id number] Implanted:Qty: 1 on 08/22/2022 by Rafia Small MD at OR [facility] N/A: Spine Lumbar [employer] 03/10/2023 [id number] / / [id number] Hemostatic Clip Res 235cm - [id number] Implanted:Qty: 4 on 10/05/2023 by Aj Pruett, DO at [facility] 02/03/2026 [id number] / / Hemostatic Clip Res 235cm - [id number] Implanted:Qty: 1 on 10/05/2023 by Aj Pruett, DO at [facility] : ENDOSCOPY 02/02/2026 [id number] / / documented as of this encounter [...] Power of Attor narda? No Care Teams Aircraft Instrument Repairer Relationship Specialty Start Date End Date Scott Weldon MD [address] [place] [address] PCP - General Family Medicine 08/03/18 documented as of this encounter
--- OUTSIDE RECORDS SUMMARY | 2024-09-10 21:21 | External Medical Summary | Summary of Care ---
Author Name Unknown Organization [facility] Address [address] [place] [facility] [place] [address] Phone [phone] Care Team Providers Care Behavioral Geneticist Name Role Phone Scott Weldon MD Primary Care Provider + Reason for Visit * Reason Onset Date Comments Patient Assistance Program 07/12/2024 Jardi ancsharon Encounter Details Date Type Department Care Team (Late st Contact Info) Description 07/12/2024 Telephone Pharmacy, Jayesh Regan [address] [facility] [place] [address] Danielle Anderson, [facility] [address] [place] [address] Patient Assistance Program (Jardiance) Allergies Active Allergy [...] 02/18/20 17 Active Insulin Infusion Pump (MINIMAdvanced Chip Express 630G INSULIN PUMP) KITIndications:Typ e 2 diabetes [...] suspected opioid overdose. Seek immediate medical attention. [email or web address]?[email or web address] 1 Each 3 11/28/19 23 Active NovoLIN [...] MG/DOSE)) Inject under the skin. Obtaining from [facility] Active Atorvastatin Calcium 40 MG Oral Tablet [...] yrs 07/05/2015 Pneumococcal Conjugate Vacci ne, 20-valent (Tkkfdyn44) 03/13/2023 Pneumococcal Polysaccharide PPV23 (Pneumovax) 02/19/2018,03/09/2007 Seasonal [...] patient to get Jardiance 10 mg from [facility] [employer] PAP. Received successful confirmation of fax. Forms scanned into chart. Danielle Anderson, PharmD Clinical Pharmacist Medication Therapy Disease Management 07/12/2024, 1:55 PM documented in this encounter Plan of Treatment Upcoming Encounters Date Type Department Care Team (Late st Contact Info) Description 07/19/2024 8:30 AM EST Imaging Radiology [facility] [address] [place] [address] 07/19/2024 9:30 AM EST Imaging Radiology [facility] 1st [facility] [address] [place] [address] 07/20/2024 10:00 AM EST Imaging [facility] 2nd Floor [facility]iology, [place] [facility] [place] [address] 08/08/2024 10:30 AM EST Hem/Onc Treatment Hematology/Oncology Treatment, [place] [address] [place], [place] [address] 08/09/2024 1:00 PM EST Telemedicine Nutrition, [facility] [address] [facility] [place] [address] Sharon Cabello, RDN [address] [place] [address] 08/11/2024 12:30 PM EST Telemedicine Psychiatry [facility] [address] [place] [address] Nhi Fritz CRNP [address] [place] [address] 08/12/2024 10:30 AM EST Office Visit Pharmacy, [facility] [address] [place] [phone] [address] [address] 09/14/2024 2:00 PM EDT Office Visit Hematology/Oncology [facility] 200 [facility] [place], [place] [phone] Sunil Bourgeois MD 200 [facility] [place], [place] [address] 09/15/2024 9:30 AM EDT Telemedicine Pharmacy, [facility] 132 [facility] [place] [address] [place] [address] 09/29/2024 1:00 PM EDT Office Visit [facility] [address] [place] [address] Jadiel Epstein CRNP [address] [place] [address] 10/18/2024 2:20 PM EDT Telemedicine Hepatology, [place] [address] [place], [place] [phone] Enid Saldana, [address] [place] [address] 12/14/2024 12:20 PM EDT Office Visit [facility] [address] [facility] [place] [address] Scott Weldon MD 132 [facility] [place] [address] 03/13/2025 2:00 PM EDT Office Visit Nephrology, [facility] 200 [facility] [place] [address] Jonathan Mathew MD 200 [facility] [place] [address] 06/16/2025 11:40 AM EST Office Visit [facility] 132 [facility] [place] [address] Scott Weldon MD 132 [facility] [place] [address] Scheduled Procedures Name Priority Associated Diagnoses Date/Ti [...] this encounter Medical Devices Implanted Type Area Annual Giving Manager Device Identifier Shelf Expiration Date Model / Serial / Lot Neurostimul Intellis Adaptiv - [id number] - [id number] Implanted:Qty: 1 on 08/22/2022 by Rafia Small MD at OR [facility] N/A: Spine Lumbar [employer] 06/21/2023 [id number] / [id number] / Description:battery Medtronic Lead Kit 60 Cm Implanted:Qty: 1 on 08/22/2022 by Rafia Small MD at OR [facility] N/A: Spine Lumbar 02/01/2026 [id number] / / [id number] Medtronic Lead Kit 60cm Implanted:Qty: 1 on 08/22/2022 by Rafia Small MD at OR [facility] N/A: Spine Lumbar 03/21/2026 [id number] / / [id number] Envelope Tyrx Med Antibacteril - [id number] Implanted:Qty: 1 on 08/22/2022 by Rafia Small MD at OR [facility] N/A: Spine Lumbar [employer] 03/10/2023 [id number] / / [id number] Hemostatic Clip Res 235cm - [id number] Implanted:Qty: 4 on 10/05/2023 by Aj Pruett DO at ENDOSCOPY [facility] [employer] : ENDOSCOPY 02/03/2026 [id number] / / Hemostatic Clip Res 235cm - [id number] Implanted:Qty: 1 on 10/05/2023 by Aj Pruett DO at ENDOSCOPY [facility] [employer] : ENDOSCOPY 02/02/2026 [id number] / / documented as of this encounter Visit Diagnoses Diagnosis Type 2 diabetes mellitus with hemoglobin A1c goal of less than 8.0% ([facility])- Primary documented in this encounter Advance Directives [...] Power of Attor narda? No Care Teams Behavioral Geneticist Relationship Specialty Start Date End Date Scott Weldon MD [address] [address] PCP - General Family Medicine 08/03/18 documented as of this encounter
--- OUTSIDE RECORDS SUMMARY | 2024-09-10 21:21 | External Medical Summary | Summary of Care ---
Author Name Unknown Organization [facility] Address [address] [place] [place] [address] Phone [phone] Care Team Providers Care Workers Compensation Adjuster Name Role Phone Scott Weldon MD Primary Care Provider + Reason for Referral * Precert (Within 10 days (routine)) - Pending Review Specialty Diagnoses / Procedures Referred By Dory t Referred To Contact Radiology Diagnoses Alkaline phosphatase elevation Cirrhosis of liver with ascites, unspecified hepatic cirrhosis type (HCC) Procedures CT ABD/PELVIS WO IV/ORAL CONTRAST Adam Bradshaw CRNP [address] [place] [address] Phone: tel: fax: Referral ID Status Reason Start Date Expiration Date Visits Requested Visits Authorized [id number] Pending Review Precert 07/18/[phone] Reason for Visit * Reason Onset Date Comments Test Results Lab 07/11/2024 Encounter Details Date Type Department Care Team (Late st Contact Info) Description 07/11/2024 Telephone Gastroenterology, [facility] [address] [address] Adam Bradshaw CRNP [address] [place] [address] Test Results Lab Allergies Active Allergy Reactions [...] Unit 3 12/31/19 16 Active Glucose Blood (Celsense CONTOUR NEXT TEST) STRP Use to test blood sugar up to 6 times per day. E11.9 These are the ONLY test strips patient can use with insulin pump 200 Strip 5 02/18/20 17 Active Insulin Infusion Pump (MINIMAmedica 630G INSULIN PUMP) KITIndications:Typ e 2 diabetes mellitus with hemoglobin A1c goal of less than 8.0% ([facility]) Use as directed. 07/30/19 18 Active CPAP every night at bedtime. Active Glucagon Emergency 1 MG Injection Kit As directed 1 Kit 3 09/05/19 23 Active Naloxone HCl 4 MG/0.1ML Nasal Liquid (Narcan Nasal)Indications: Controlled substance agreement signed,Chronic pain syndrome Administer 1 spray into 1 nostril for suspected opioid overdose. Seek immediate medical attention. [email or web address]?v=[email or web address] 1 Each 3 11/28/19 23 Active NovoLIN [...] MG/DOSE)) Inject under the skin. Obtaining from [employer] Active Atorvastatin Calcium 40 MG Oral [...] (09/03/2009): Per Obesity Taxonomy Coronary atherosclerosis of [place] coronary artery 09/15/2008 10/03/2008 Malaise and fatigue [...] mRNA, LNP-s, No Pre serve, 2-Dose Series (Boxever) 11/08/2020,10/11/2020 HEP A - Hepatitis A (Adult > 18 yrs) 04/11/2011, 09/20/2010 Hepatitis B, 20+ yrs 07/05/2015 Pneumococcal Conjugate Vacci ne, 20-valent (Qidhaft64) 03/13/2023 Pneumococcal Polysaccharide PPV23 (Pneumovax) 02/19/2018,03/09/2007 Seasonal [...] Miscellaneous Notes * Telephone Encounter - Lisandra Tello OSA - 07/12/2024 10:55 AM EST Pt is already dustin'd 07/19/24. * Telephone Encounter - Adam Bradshaw CRNP [...] Description 07/19/2024 8:30 AM EST Imaging Radiology [facility] [place] [address] [facility] [place] [address] 07/19/2024 9:30 AM EST Imaging Radiology [facility] 1st Floor, [place] 132 [facility] [place] [address] 07/20/2024 10:00 AM EST Imaging [facility] II 2nd Floor Cardiology, [place] 132 [facility] [place] [address] 08/08/2024 10:30 AM EST Hem/Onc Treatment Hematology/Oncology Treatment, [place] [address] [place] [address] 08/09/2024 1:00 PM EST Telemedicine Nutrition, [facility] 132 [facility] [place] [address] Sharon Cabello, HUBERT [address] [facility] [place] [address] 08/11/2024 12:30 PM EST Telemedicine Psychiatry [facility] [address] [facility] [address] Nhi Fritz CRNP [address] [place] [address] 08/12/2024 10:30 AM EST [facility] [phone] [place]esh [place] [phone] [facility] [address] 09/14/2024 2:00 PM EDT Office Visit Hematology/Oncology [place] [address] [place] [phone] Sunil Bourgeois MD [address] [place] [address] 09/15/2024 9:30 AM EDT Telemedicine Pharmacy, [facility] [place] [address] [facility] [place] [address] 09/29/2024 1:00 PM EDT Office Visit Family [facility] [address] [place] [address] Jadiel Epstein CRNP [address] [place] [address] 10/18/2024 2:20 PM EDT Telemedicine Hepatology, [place] [address] [place] [address] Enid Saldana [address] [place] [address] 12/14/2024 12:20 PM EDT Office Visit [facility] 132 [facility] [place] [address] Scott Weldon MD [address] [facility] [place] [address] 03/13/2025 2:00 PM EDT Office Visit Nephrology, [facility] [address] [place], [place] [address] Jonathan Mathew MD [address] [place] [address] 06/16/2025 11:40 AM EST Office Visit Family Practice [facility] [address] [place] [address] Scott Weldon MD [address] [place] [address] Scheduled Orders Name Type Priority Associated Diagnoses [...] 05/16/202505/16/2 024, 07/23/2023, 04/06/2023, Additional history exists Depression [...] this encounter Medical Devices Implanted Type Area Hydropulper Operator Device Identifier Shelf Expiration Date Model / Serial / Lot Neurostimul Intellis Adaptiv - [id number] - [id number] Implanted:Qty: 1 on 08/22/2022 by Rafia Small MD at OR [facility] N/A: Spine Lumbar [employer] 06/21/2023 [id number] / [id number] / Description:battery Medtronic Lead Kit 60 Cm Implanted:Qty: 1 on 08/22/2022 by Rafia Small MD at OR [facility] N/A: Spine Lumbar 02/01/2026 [id number] / / [id number] Medtronic Lead Kit 60cm Implanted:Qty: 1 on 08/22/2022 by Rafia Small MD at OR [facility] N/A: Spine Lumbar 03/21/2026 [id number] / / [id number] Envelope Tyrx Med Antibacteril - [id number] Implanted:Qty: 1 on 08/22/2022 by Rafia Small MD at OR [facility] N/A: Spine Lumbar [employer] 03/10/2023 [id number] / / [id number] Hemostatic Clip Res 235cm - [id number] Implanted:Qty: 4 on 10/05/2023 by Aj Pruett DO at ENDOSCOPY [facility] [employer] : ENDOSCOPY 02/03/2026 [id number] / / Hemostatic Clip Res 235cm - [id number] Implanted:Qty: 1 on 10/05/2023 by Aj Pruett DO at ENDOSCOPY [facility] [employer] : ENDOSCOPY 02/02/2026 [id number] / / documented as of this encounter [...] Power of Attor narda? No Care Teams Workers Compensation Adjuster Relationship Specialty Start Date End Date Scott Weldon MD [address] [place] [address] PCP - General Family Medicine 08/03/18 documented as of this encounter
--- OUTSIDE RECORDS SUMMARY | 2024-09-10 21:21 | External Medical Summary | Summary of Care ---
Author Name Unknown Organization [facility] Address [address] [facility] [place] [address] Phone [phone] Care Team Providers Care Sql Developer Dba Name Role Phone Scott Weldon MD Primary Care Provider + Encounter Details Date Type Department Care Team (Late st Contact Info) Description 07/11/2024 Telephone Hematology/Oncology Treatment, [place] [address] [place] [address] Sunil Bourgeois MD 200 [place] [address] Allergies Active Allergy Reactions Criticality Noted Date [...] 5 02/18/20 17 Active Insulin Infusion Pump (MINIMAskablogr 630G INSULIN PUMP) KITIndications:Typ e 2 diabetes [...] suspected opioid overdose. Seek immediate medical attention. [email or web address] 1 Each 3 11/28/19 23 Active NovoLIN [...] MG/DOSE)) Inject under the skin. Obtaining from [employer] Active Atorvastatin Calcium 40 MG Oral Tablet [...] (09/03/2009): Per Obesity Taxonomy Coronary atherosclerosis of [place] coronary artery 09/15/2008 10/03/2008 Malaise and fatigue [...] yrs 07/05/2015 Pneumococcal Conjugate Vacci ne, 20-valent (Unepprv38) 03/13/2023 Pneumococcal Polysaccharide PPV23 (Pneumovax) 02/19/2018,03/09/2007 Seasonal [...] Miscellaneous Notes * Telephone Encounter - Bindu Bradshaw CRNP - 07/11/2024 12:57 PM EST Order placed * Telephone Encounter - Amada Foote RN - 07/11/2024 12:02 PM EST Patient here for Vemofer today and usually has nausea, even before infusion starts. She informed RNshe forgot to take her nausea pill this morning and was hoping to get one today for her infusion. It looks like they discontinued the Compazine and now takes Zofran for nausea PRN. Bindu: Please order Zofran for patient today. Thanks! NS: Please add to [place] plan thanks! documented in this encounter Plan of Treatment Upcoming Encounters Date Type Department Care Team (Late st Contact Info) Description 07/12/2024 10:10 AM EST Office Visit Pharmacy, [address] [place] [address] Jayesh [facility] [address] [facility] [place] [address] 07/19/2024 8:30 AM EST Imaging Radiology [facility] [address] [place] [phone] 07/19/2024 9:30 AM EST Imaging Radiology [facility] 1st Floor, [place] [address] [place] [address] 07/20/2024 10:00 AM EST Imaging [facility] II 2nd Floor Cardiology, [place] [address] [place] [address] 08/08/2024 10:30 AM EST Hem/Onc Treatment Hematology/Oncology Treatment, [place] [address] [place] [address] 08/11/2024 12:30 PM EST Telemedicine Psychiatry [facility] [address] [place] [address] Nhi Fritz CRNP [address] [place] [address] 09/14/2024 2:00 PM EDT Office Visit Hematology/Oncology [facility] [address] [place] [phone] Sunil Bourgeois MD 200 [facility] [address] 09/15/2024 9:30 AM EDT Telemedicine Pharmacy, [facility] [address] [place] [address] [facility] 132 [facility] [place] [address] 09/29/2024 1:00 PM EDT Office Visit Family Practice [facility] [address] [place] [address] Jadiel Epstein CRNP [address] [place] [address] 10/18/2024 2:20 PM EDT Telemedicine Hepatology, [place] [address] [place] [address] Enid Saldana, [address] [place] [address] 12/14/2024 12:20 PM EDT Office Visit [facility] [address] [place] [address] Scott Weldon MD 132 [facility] [place] [address] 03/13/2025 2:00 PM EDT Office Visit Nephrology, [facility] 200 [facility] [place] [address] Jonathan Mathew MD 200 [facility] [place] [address] 06/16/2025 11:40 AM EST Office Visit [facility] [address] [place] [address] Scott Weldon MD 132 [facility] [place] [address] Scheduled Procedures Name Priority Associated Diagnoses Date/Ti [...] encounter Medical Devices Implanted Type Area Therapeutic Recreation Assistant Device Identifier Shelf Expiration Date Model / Serial / Lot Neurostimul Intellis Adaptiv - [id number] - [id number] Implanted:Qty: 1 on 08/22/2022 by Rafia Small MD at OR [facility] N/A: Spine Lumbar [employer] 06/21/2023 [id number] / [id number] / Description:battery Medtronic Lead Kit 60 Cm Implanted:Qty: 1 on 08/22/2022 by Rafia Small MD at OR [facility] N/A: Spine Lumbar 02/01/2026 [id number] / / [id number] Medtronic Lead Kit 60cm Implanted:Qty: 1 on 08/22/2022 by Rafia Small MD at OR [facility] N/A: Spine Lumbar 03/21/2026 [id number] / / [id number] Envelope Tyrx Med Antibacteril - [id number] Implanted:Qty: 1 on 08/22/2022 by Rafia Small MD at OR [facility] N/A: Spine Lumbar [employer] 03/10/2023 [id number] / / [id number] Hemostatic Clip Res 235cm - [id number] Implanted:Qty: 4 on 10/05/2023 by Aj Pruett DO at ENDOSCOPY [facility] [employer] : ENDOSCOPY 02/03/2026 [id number] / / Hemostatic Clip Res 235cm - [id number] Implanted:Qty: 1 on 10/05/2023 by Aj Pruett DO at [facility] [employer] : ENDOSCOPY 02/02/2026 [id number] / / documented as of this encounter Visit Diagnoses Diagnosis Iron deficiency anemia, unspecified iron deficiency anemia type- Primary documented in this encounter Advance Directives [...] Power of Attor narda? No Care Teams Sql Developer Dba Relationship Specialty Start Date End Date Scott Weldon MD [address] [place] [address] PCP - General Family Medicine 08/03/18 documented as of this encounter
--- OUTSIDE RECORDS SUMMARY | 2024-09-10 21:22 | External Medical Summary ---
Author Name Unknown Address Unknown Organization K01:[facility] - [address] [place] [address] Laboratory Report Ordering Provider Test Date Status LUIS ANTONIO LEIVA 07/11/2024 10:00:38 Final Observation Date Value Abnormality Reference (Units ) Status Iron 07/11/2024 10:00:38 77 33-151 (ug /dL) Final Iron-binding capacity 07/11/2024 10:00:38 258 250-425 (ug/dL) Final Transferrin Sat % 07/11/2024 10:00:38 30 15 -55 (%) Final Performing Location [facility] - [address] [place] [address]
--- OUTSIDE RECORDS SUMMARY | 2024-09-10 21:22 | External Medical Summary ---
Author Name Unknown Address Unknown Organization K09:[facility] - [address] [place] [address] Laboratory Report Ordering Provider Test Date Status MARY LOUIE 07/11/2024 10:20:51 Final Observation Date Value Abnormality Reference (Units ) Status BUN 07/11/2024 10:20:51 22 Above high normal 6-20 (mg/dL) Final Creatinine 07/11/2024 10:20:51 1.4 Above high normal 0.5-1.0 (mg/dL) Final Glomerular filtration rate/1.73 sq M.predicted [Volume Rate/Area] in Serum, Plasma or Blood by Creatinine-based formula (CKD-EPI) 07/11/2024 10:20:51 46 Below low normal >=60 (mL/min) Final eGFR is calculated based on the CKD-EPI 2020 equation. Sodium 07/11/2024 10:20:51 143 135-146 (m mol/L) Final Potassium 07/11/2024 10:20:51 3.8 3.5-5.1 (m mol/L) Final Cl 07/11/2024 10:20:51 102 98-107 (mm ol/L) Final CO2 07/11/2024 10:20:51 31 22-32 (mmo l/L) Final Anion gap 07/11/2024 10:20:51 10 7-15 (mmol /L) Final Glucose 07/11/2024 10:20:51 186 Above high normal 70 -120 (mg/dL) Final Albumin 07/11/2024 10:20:51 3.8 3.8-5.0 (g /dL) Final AST (Aspartate aminotransferase) 07/11/2024 10:20:51 38 Above high normal 10-35 (U/L) Final Alk Phos 07/11/2024 10:20:51 200 Above high normal 35 -130 (U/L) Final Bilirubin, Total 07/11/2024 10:20:51 0.5 <=1 .2 (mg/dL) Final Calcium 07/11/2024 10:20:51 8.9 8.4-10.2 ( mg/dL) Final Protein 07/11/2024 10:20:51 7.2 6.0-8.3 (g /dL) Final ALT (Alanine aminotransferase) 07/11/2024 10:20:51 15 10-35 (U/L) Jaswinder burns Performing Location [facility] [address] [place] [address]
--- OUTSIDE RECORDS SUMMARY | 2024-09-10 21:22 | External Medical Summary | Summary of Care ---
Author Name Unknown Organization [facility] Address [address] [place] [address] Phone [phone] Care Team Providers Care Crook Operator Name Role Phone Scott Weldon MD Primary Care Provider + Reason for Referral * Evaluate & Treat - Unlimited Visits (Within 30 days (routine)) - Authorized Specialty Diagnoses / Procedures Referred By Contac t Referred To Contact Dietitian / Nutrition Services Diagnoses Cirrhosis of liver with ascites, unspecified hepatic cirrhosis type (HCC) Liban Hernandez CRNP [address] [place] [address] Phone: tel: fax: Referral ID Status Reason Start Date Expiration Date Visits Requested Visits Authorized [id number] Authorized Specialty Services Required 07/08/2024 [id number] Question Answer Referral Priority Within 30 days (routine) Where should this appointment be scheduled? Noemi What condition is the patient being seen for? All other conditions Other: GI conditions/ symptoms - cirrhosis w ascites, diabetes Comments Diet education on the low salt diet for cirrhosis. 2Gm sodium or less. Pt has cirrhosis Reason for Visit * Reason Comments Cirrhosis * Evaluate & Treat - Unlimited Visits (Within 30 days (routine)) - Authorized Specialty Diagnoses / Procedures Referred By Contac t Referred To Contact Gastroenterology Diagnoses Cirrhosis of liver without ascites, unspecified hepatic cirrhosis type (HCC) Colitis Gastroparesis Scott Weldon MD [address] [place] [address] Phone: tel: fax: Referral ID Status Reason Start Date Expiration Date Visits Requested Visits Authorized [id number] Authorized Specialty Services Required 02/24/2024 [id number] Encounter Details Date Type Department Care Team (Latest Contact Info) Description 07/08/2024 10:30 AM EST Telemedicine Gastroenterology, [facility] [address] [place] [address] Liban Hernandez CRNP [address] [place] [address] Cirrhosis of liver with ascites, unspecified hepatic cirrhosis type (HCC)*; Liver cirrhosis secondary to nonalcoholic steatohepatitis (MENDEZ) (HCC) Allergies Active Allergy Reactions Criticality Noted Date Comments Naproxen Sodium Bleeding High 11/29/2013 Pollen 12/03/2022 Seasonal Food (See Comments) Anaphylaxis High 04/20/2019 Hot peppers (oils) Kiwi Extract Anaphylaxis High 04/20/2019 documented as of this encounter (statuses as of 07/08/2024) Medications insulin glargine (LANTUS SOLOSTAR) 100 UNIT/ML [...] less than 8.0% ([facility]) Use as directed. 07/30/19 18 Active CPAP every night at bedtime. Active Glucagon Emergency 1 MG Injection Kit As directed 1 Kit 3 09/05/19 23 Active Naloxone HCl 4 MG/0.1ML Nasal Liquid (Narcan Nasal)Indications: Controlled substance agreement signed,Chronic pain syndrome Administer 1 spray into 1 nostril for suspected opioid overdose. Seek immediate medical attention. https://[email or web address].com/watch?v=[email or web address] 1 Each 3 11/28/19 23 Active NovoLIN [...] MG/DOSE)) Inject under the skin. Obtaining from [employer] Active Atorvastatin Calcium 40 MG Oral Tablet [...] as of this encounter (statuses as of 07/08/2024) Active Problems Problem Noted Date Diagnosed Date [...] as of this encounter (statuses as of 07/08/2024) Resolved Problems Problem Noted Date Diagnosed Date [...] (09/03/2009): Per Obesity Taxonomy Coronary atherosclerosis of kalispel [...] as of this encounter (statuses as of 07/08/2024) Immunizations Name Administration Dates Next Due COVID-19 mRNA, LNP-s, No Pre serve, 2-Dose Series (Webspy) 11/08/2020,10/11/2020 HEP A - Hepatitis A (Adult > 18 yrs) 04/11/2011, 09/20/2010 Hepatitis B, 20+ yrs 07/05/2015 Pneumococcal Conjugate Vacci ne, 20-valent ([id number]) 03/13/2023 Pneumococcal Polysaccharide PPV23 (Pneumovax) 02/19/2018,03/09/2007 Seasonal [...] documented in this encounter Progress Notes * Liban Hernandez CRNP - 07/08/2024 10:50 AM EST Telemedicine Visit 07/08/2024: REFERRING PHYSICIAN: Scott Weldon MD Patient location: HOME. I was in a hospital or clinic location. After connecting through televideo,patient was verified with two unique identifiers. Patient (or authorized legal insurance service representative) was then informed that this was a Telemedicine visit and being conducted confidentially over secure lines. Methods to assure confidentiality were taken. Patient acknowledged consent and understanding of pr ivacy and security of the Telemedicine visit. The patient agreed to participate. CC: [facility] Cirrhosis f/u c/o bloating, worsening ascites (though admits has been larger in the past).Patient initially unsure why this appt was scheduled but believes because she missed her most recent hepatology appt. HPI: Ms. Carmen Tyson presents for cirrhosis w ascites, previously followed by Dr. Bishop most recently in 2022. Has bloating, alternating constipation, diarrhea. Has some dark BMs sometimes, but hasn't seen blood in BMs. + tiredness, fatigue, poor concentration but no confusion. + bleeds easily. + dizziness at times from low BP: this week BP 81/45, 90/54, 97/61. Wt today at home is 228, typical weight is 231. Screenings: For HCC: Liver US Mar 2024: Nonspecific mild gallbladder wall thickening. Nonspecific hepatic findings compatible with patient's clinical diagnosis of cirrhosis Complications: Ascites: on furosemide 40mg every other day. Esophageal varcies. Most recent EGD Mar 2024 Grade II EV. Other testing, a review of [facility] records shows an ED visit for abd pain 05/28/24: Non contrast CTAP 05/28/24 1. The gallbladder is mildly distended and may be mildly inflamed. No calcified stones. Consider sonography. 2. Cirrhosis and splenomegaly. US 05/28/24: 1. Large fatty liver. 2. Normal sonographic appearance of the gallbladder. Messenteric US 05/28/24: 1. Suboptimal study due to excessive bowel gases and patient body habitus. 2. The abdominal aorta, celiac artery, mesentric arteries and bilateral common iliac arteries are not visualised properly in the availabe images due to excessive bowel gases. 3. Visualised left lobe of liver showed cirrhotic parenchyma Past Medical History: Diagnosis Date Abdominal pain, [...] goal of less than 8.0% (HCC) 06/22/2014 Family History Problem Relation Name Age of [...] (Maternal) Gastro-intestinal disorder Grandmother (Paternal) Liver disease Past Surgical History: Procedure Laterality Date COLONOSCOPY, DIAGNOSTIC (RECTUM) 06/06/2010 normal colon exam repeat in 5 years COLONOSCOPY, DIAGNOSTIC (RECTUM) 06/27/2015 retained stool, repeat/COLONOSCOPY FLEXIBLE PROXIMAL DIAGNOSTIC performed by Aj Pruett DO atENDOSCOPY [facility] COLONOSCOPY, DIAGNOSTIC (RECTUM) 10/05/2023 hemorrhoids/biopsies show hyperplastic and inflammatory tissue/recall 5 years/COLONOSCOPY FLEXIBLE PROXIMAL DIAGNOSTIC performed by Aj Pruett DO at ENDOSCOPY [facility] EGD, FLEXIBLE, DIAGNOSTIC 01/22/2011 UPPER GI ENDOSCOPY DIAGNOSTIC performed by STACEY BENNETT at [place] [facility] [place]GD, FLEXIBLE, DIAGNOSTIC 01/19/2014 portal hypertensive gastropathy, benign gastric polyp, repeat 2 yrs/done @ [facility] EGD, FLEXIBLE, DIAGNOSTIC 02/08/2016 normal bx, portal hypertensive gastropathy, repeat 1.5 yrs/[facility] EGD, FLEXIBLE, DIAGNOSTIC 08/25/2017 retained food, repeat 1 yr/ESOPHAGOGASTRODUODENOSCOPY (EGD), FLEXIBLE, TRANSORAL, DIAGNOSTIC performed by Aj Pruett DO at ENDOSCOPY [facility] EGD, FLEXIBLE, DIAGNOSTIC 12/15/2018 esophageal varices, gastritis, gastric polyp, repeat 1 yr/ESOPHAGOGASTRODUODENOSCOPY (EGD), FLEXIBLE, TRANSORAL, DIAGNOSTIC performed by Aj Pruett DO at [facility] EGD, FLEXIBLE, DIAGNOSTIC 01/31/2020 fundic polyps, eso varices, portal hypertensive gastropathy, repeat 1 yr / ESOPHAGOGASTRODUODENOSCOPY (EGD), FLEXIBLE, TRANSORAL, DIAGNOSTIC performed by Aj Pruett DO at ENDOSCOPY [facility] EGD, FLEXIBLE, DIAGNOSTIC 10/09/2022 grade I esophageal varices/portal hypertension gastropathy/medium amount of food in stomach/ESOPHAGOGASTRODUODENOSCOPY (EGD), FLEXIBLE, TRANSORAL, DIAGNOSTIC performed by Aj Pruett DO at ENDOSCOPY [facility] EGD, FLEXIBLE, DIAGNOSTIC 10/05/2023 grade II esophageal varices/portal hypertensive gastropathy/multiple gastric polyps, resected and retrieved, clips placed/biopsies show fundic polyps/repeat 6 months/ESOPHAGOGASTRODUODENOSCOPY (EGD),FLEXIBLE, TRANSORAL, DIAGNOSTIC performed by Aj Pruett DO at ENDOSCOPY [facility] EGD, FLEXIBLE, DIAGNOSTIC 03/25/2024 grade II esophageal varices/portal hypertensive gastropathy/several endoclips stomach/multiple gastric polyps/biopsies show fundic polyps/recall 12-18 months/ESOPHAGOGASTRODUODENOSCOPY (EGD), FLEXIBLE, TRANSORAL, DIAGNOSTIC performed by Aj Pruett DO at ENDOSCOPY [facility] EGD, FLEXIBLE, W/BIOPSY 07/27/2012 small fundic stomach polyp/inflammation r/t reflux-repeat EGD in 1 yr EGD, W/ENDOSCOPIC US 01/22/2011 UPPER GI ENDOSCOPY ENDOSCOPIC ULTRASOUND performed by STACEY BENNETT at [facility] EVAL NEUROSTIM PULSE GEN, W/ REPROGRAM N/A 06/27/2022 NEUROSTIMULATOR PULSE GENERATOR/ TRANSMITTER, WITH INTRAOPERATIVE OR SUBSEQUENT PROGRAMMING performed by Rafia Small MD at [facility] EVAL NEUROSTIM PULSE GEN, W/ REPROGRAM N/A 08/22/2022 NEUROSTIMULATOR PULSE GENERATOR/ TRANSMITTER, WITH INTRAOPERATIVE OR SUBSEQUENT PROGRAMMING performed by Rafia Small MD at OR [facility] HYSTEROSCOPY,DIAGNOSTIC 07/16/2006 NovaSure endomentrial ablation IMPLANT EPIDURAL NEUROELECTRODES N/A 06/27/2022 PERCUTANEOUS IMPLANTATION NEUROSTIMULATOR EPIDURAL performed by Rafia Small MD at OR [facility] IMPLANT EPIDURAL NEUROELECTRODES N/A 08/22/2022 PERCUTANEOUS IMPLANTATION NEUROSTIMULATOR EPIDURAL performed by Rafia Small MD at [facility] IMPLANT SPINAL NEURORECEIVER N/A 08/22/2022 INSERTION OR REPLACEMENT SPINAL NEUROSTIMULATOR GENERATOR performed by Rafia Small MD at[facility] INJECT DX/THER SUBSTANCE INTERLAMINAR LUMBAR/SACRAL W IMAGE GUIDE 04/13/2017 INJECTION SPINE LUMBAR OR SACRAL performed by Rene Kate DO at OR [facility] INJECT DX/THER SUBSTANCE INTERLAMINAR LUMBAR/SACRAL W IMAGE GUIDE 12/10/2017 INJECTION SPINE LUMBAR OR SACRAL performed by Rene Kate DO at [facility] INSER TUNN ACC DEV;5 YRS/OLDER 03/24/2013 03/24/2013 [place] [facility]acement of A-Port central venous access catheter with port Dr. Dewitt IOF CT GUIDED NEEDLE BIOPSY 07/11/2010 CT GUIDED NEEDLE ASPIRATION BIOPSY performed by JAMILA SAWANT at [facility] LIGATE/CUT OVIDUCT(S) 07/1995 Social History Tobacco Use Smoking status: Never Passive exposure: Past Smokeless tobacco: Never Vaping Use Vaping status: Never Used Substance Use Topics Alcohol use: No Drug use: No Review of patient's allergies indicates: Allergen Reactions [...] pump 200 Strip 5 Insulin Infusion Pump (MINIMEndoart 630G INSULIN PUMP) KIT Use as directed. CPAP every night at bedtime. Glucagon Emergency 1 MG Injection Kit As directed 1 Kit 3 Naloxone HCl 4 MG/0.1ML Nasal Liquid (Narcan Nasal) Administer 1 spray into 1 nostril for suspectedopioid overdose. Seek immediate medical attention. https://www.youtube.com/[email or web address]?v=[email or web address] 1 Each 3 NovoLIN R ReliOn 100 [...] MG/DOSE)) Inject under the skin. Obtaining from [employer] Atorvastatin Calcium 40 MG Oral Tablet (Lipitor) [...] as needed for Anxiety. 90 Tablet 3 No current facility-administered medications for this visit. REVIEW OF SYSTEMS: A total of 12 systems were reviewed. All other findings negative except as noted in HPI. EXAM: GENERAL: Appears stated age, well developed, well nourished in no acute distress. SKIN: No apparent rashes, jaundice, ecchymosis, oral lesions. HEENT: Neck supple. Normocephalic, sclera non-icteric LUNGS: No respiratory distress or apparent accessory muscles used. Normal chest excursion. No audible wheezing NEURO: No lateralizing findings. Cranial nerves IV, V, , VII, XI and XII in tact. Motor grossly normal. PSYCHOSOCIAL: Appropriate affect, normal memory recall, ASSESSMENT AND PLAN: Baseline hypotension precludes the use of a BB for prevention of variceal bleeding. Cirrhosis of liver with ascites, unspecified hepatic cirrhosis type (HCC) (Primary) - PT INR; Future; Expected date: 07/08/2024 - COMPREHENSIVE METABOLIC PANEL - US ABDOMEN LIMITED - CBC WITH WBC DIFFERENTIAL; Future; Expected date: 07/08/2024 - GI NUTRITION REFERRAL OP Liver cirrhosis secondary to nonalcoholic steatohepatitis (MENDEZ) (HCC) - GI NUTRITION REFERRAL OP Due for EGD in Mar 2025. Due for colonoscopy in 2026. Low salt diet, diet referral for teaching (pt tells me that she salts her foods), I explained that the fluid on the abdomen and lower legs are caused by salting food, that she needs to stop using salt, and not eat chips/pretzels or other salty foods. - ED for emergencies - Please call with any questions or concerns I spent a total of 30 minutes on the date of service in review of patient's record, and previously obtained information in person and appropriate medical visit, discussion and education of plan, withpatient and/or caregiver, placing orders for tests/referral/procedures as medically necessary and documentation of pertinent clinical information in patient's medical records for their visit today. A review of records after the pt's departure shows that she also has gastroparesis and is on reglanfrom her PCP. Will have schedulers reach out to the pt for gastroparesis f/u in 6m RETURN TO CLINIC: Pt has hepatology f/u in [place] in October 2024. NOEL Bustos 07/08/2024 10:52 AM R: 07/08/2024 documented in this encounter Miscellaneous Notes * Addendum Note - Liban Hernandez CRNP - 07/08/2024 2:43 PM ESTAddended by: LIBAN HERNANDEZ on: 07/08/2024 02:43 PM Modules accepted: Orders documented in this encounter Plan of Treatment Upcoming Encounters Date Type Department Care Team (Late st Contact Info) Description 07/11/2024 10:00 AM EST Hem/Onc Treatment Hematology/Oncology Treatment, [place] [address] [facility] [phone] 07/12/2024 10:10 AM EST [facility] [address] [facility] [phone] [facility] [address] 07/20/2024 10:00 AM EST Imaging [facility] 2nd Floor Cardiology, [place] [address] [facility] [place] [phone] 08/11/2024 12:30 PM EST Telemedicine Psychiatry [facility] [address] [place] [phone] Nhi Fritz CRNP [address] [place] [address] 09/14/2024 2:00 PM EDT Office Visit Hematology/Oncology [facility] [address] [facility] [place] [phone] Sunil Bourgeois MD [address] [facility] [place] [address] 09/15/2024 9:30 AM EDT Telemedicine Pharmacy, [facility] [address] [facility] [place] [address] [facility] [address] [phone] 09/29/2024 1:00 PM EDT Office Visit [facility] [address] [place] [address] Jadiel Epstein CRNP [address] [place] [address] 10/18/2024 2:20 PM EDT Telemedicine Hepatology, [place] [address], [place] [phone] Enid Saldana [address], [place] [phone] 12/14/2024 12:20 PM EDT Office Visit [facility] [address] [place] [address] Scott Weldon MD [address] [place] [address] 03/13/2025 2:00 PM EDT Office Visit Nephrology, [facility] [address] [place] [address] Jonathan Mathew MD [address] [place] [address] 06/16/2025 11:40 AM EST Office Visit [facility] [address] [facility] [place] [address] Scott Weldon MD [address] [place] [address] Scheduled Orders Name Type Priority Associated Diagnoses Orde r Schedule PT INR Lab Routine Cirrhosis of liver with ascites, unspecified hepatic cirrhosis type (HCC) Expected: 07/08/2024, Expires: 07/08/2025 COMPREHENSIVE METABOLIC PANEL Lab Routine Cirrhosis of liver with ascites, unspecified hepatic cirrhosis type (HCC) Ordered: 07/08/2024 US ABDOMEN LIMITED Medical Imaging Routine Cirrhosis of liver with ascites, unspecified hepatic cirrhosis type (HCC) Ordered: 07/08/2024 CBC WITH WBC DIFFERENTIAL Lab Routine Cirrhosis of liver with ascites, unspecified hepatic cirrhosis type (HCC) Expected: 07/08/2024, Expires: 07/08/2025 Scheduled Procedures Name Priority Associated Diagnoses Date/Ti me ESOPHAGOGASTRODUODENOSCOPY ( EGD), FLEXIBLE, TRANSORAL, DIAGNOSTIC Recall Gastric polyps Esophageal varices (HCC) COLONOSCOPY FLEXIBLE PROXIMAL DIAGNOSTIC Recall History of colonic polyps Scheduled Referrals Name Type Priority Associated Diagnoses Orde r Schedule NUTRITION-CLINICAL DIETITIAN REFERRAL OP Referral Within 30 days (routine) Cirrhosis of liver with ascites, unspecified hepatic cirrhosis type (HCC) Ordered: 07/08/2024 Health Maintenance Due Date Last Done Comments [...] history exists Depression Monitoring 05/17/2025 05/17/2024 GFR 06/14/2025 06/14/2024, 0 02/2024, 03/10/2024, Additional history exists Pap Smear 09/07/2026 09/08/2023, [...] this encounter Medical Devices Implanted Type Area Utilities And Maintenance Supervisor Device Identifier Shelf Expiration Date Model / Serial / Lot Neurostimul Intellis Adaptiv - [id number] - [id number] Implanted:Qty: 1 on 08/22/2022 by Rafia Small MD at OR [facility] N/A: Spine Lumbar [employer] 06/21/2023 [id number] / [id number] / Description:battery Medtronic Lead Kit 60 Cm Implanted:Qty: 1 on 08/22/2022 by Rafia Small MD at OR [facility] N/A: Spine Lumbar 02/01/2026 [id number] / / [id number] Medtronic Lead Kit 60cm Implanted:Qty: 1 on 08/22/2022 by Rafia Small MD at OR [facility] N/A: Spine Lumbar 03/21/2026 [id number] / / [id number] Envelope Tyrx Med Antibacteril - [id number] Implanted:Qty: 1 on 08/22/2022 by Rafia Small MD at OR [facility] N/A: Spine Lumbar [employer] 03/10/2023 [id number] / / [id number] Hemostatic Clip Res 235cm - [id number] Implanted:Qty: 4 on 10/05/2023 by Aj Pruett, at ENDOSCOPY [facility] : ENDOSCOPY 02/03/2026 [id number] / / Hemostatic Clip Res 235cm - [id number] Implanted:Qty: 1 on 10/05/2023 by Aj Pruett DO at ENDOSCOPY [facility] : ENDOSCOPY 02/02/2026 [id number] / / documented as of this encounter Visit Diagnoses Diagnosis Cirrhosis of liver with ascites, unspecified hepatic cirrhosis type (HCC)- Primary Liver cirrhosis secondary to nonalcoholic steatohepatitis (MENDEZ) (HCC) documented in this encounter Advance Directives [...] Power of Attor narda? No Care Teams Crook Operator Relationship Specialty Start Date End Date Scott Weldon MD [address] [place] [address] PCP - General Family Medicine 08/03/18 documented as of this encounter
--- OUTSIDE RECORDS SUMMARY | 2024-09-10 21:22 | External Medical Summary ---
Author Name Unknown Address Unknown Organization K09[facility] [place] [address] Laboratory Report Ordering Provider Test Date Status LUIS ANTONIO LEIVA 07/11/2024 10:00:38 Final Observation Date Value Abnormality Reference (Units ) Status WBC, Total 07/11/2024 10:00:38 4.47 4.00-10.8 0 (K/uL) Final RBC 07/11/2024 10:00:38 4.05 3.85-5.15 (M/uL) Final Hemoglobin 07/11/2024 10:00:38 11.4 Below low normal 12 .0-15.3 (g/dL) Final HCT 07/11/2024 10:00:38 35.2 Below low normal 36. 0-45.2 (%) Final MCV 07/11/2024 10:00:38 86.9 81.5-97.5 (fL) Final MCH 07/11/2024 10:00:38 28.1 27.0-34.0 (pg) Final MCHC 07/11/2024 10:00:38 32.4 32.0-36.0 (g/dL) Final RDW 07/11/2024 10:00:38 15.5 11.5-15.5 (%) Final Platelets 07/11/2024 10:00:38 48 Below low normal 140 -400 (K/uL) Final MPV 07/11/2024 10:00:38 9.9 6.6-11.1 ( fL) Final Performing Location [facility] [place] [address]
--- OUTSIDE RECORDS SUMMARY | 2024-09-10 21:22 | External Medical Summary ---
Author Name Unknown Address Unknown Organization K09[facility] [address] [place] [address] Laboratory Report Ordering Provider Test Date Status LUIS ANTONIO LEIVA 07/11/2024 10:00:38 Final Observation Date Value Abnormality Reference (Units ) Status SYNC LEUKOCYTES IN BLOOD BY AUTOMATED COUNT 07/11/2024 10:00:38 4.47 4.00-10.80 (K/uL) Final Segs 07/11/2024 10:00:38 68.8 40.0-75.0 (%) Final Lymphs % 07/11/2024 10:00:38 18.3 18.0-42.0 (%) Final Monos 07/11/2024 10:00:38 7.4 1.0-11.0 (%) Final Eosinophils 07/11/2024 10:00:38 5.1 0.0-6.0 (%) Final Basos 07/11/2024 10:00:38 0.4 0.0-2.0 (%) Final Absolute Segs 07/11/2024 10:00:38 3.07 1.80-7.70 (K/uL) Final Lymphs, absolute 07/11/2024 10:00:38 0.82 Below low normal 1.00-4.80 (K/ul) Final Monos, Abs 07/11/2024 10:00:38 0.33 0.00-1.10 (K/uL) Final Eos, Abs 07/11/2024 10:00:38 0.23 0.00-0.70 (K/uL) Final Basos, Abs 07/11/2024 10:00:38 0.02 0.00-0.20 (K/uL) Final Performing Location [facility] [place] [address]
--- OUTSIDE RECORDS SUMMARY | 2024-09-10 21:22 | External Medical Summary | Summary of Care ---
Author Name Unknown Organization [facility] Address [address] [facility] [place] [address] Phone [phone] Care Team Providers Care Crane Man Name Role Phone Scott Weldon MD Primary Care Provider + Reason for Visit * Reason Comments Follow Up Encounter Details Date Type Department Care Team ([facility] Contact Info) Description 07/07/2024 9:30 AM EST Telemedicine Psychiatry [facility] [address] [place] [address] Nhi Fritz CRNP [address] [place] [address] PTSD (post-traumatic stress disorder)*; MDD (major depressive disorder), recurrent, in full remission (HCC); MICHELLE (generalized anxiety disorder) Allergies Active Allergy Reactions Criticality Noted Date Comments Naproxen Sodium Bleeding High 11/29/2013 Pollen 12/03/2022 Seasonal Food (See Comments) Anaphylaxis High 04/20/2019 Hot peppers (oils) Kiwi Extract Anaphylaxis High 04/20/2019 documented as of this encounter (statuses as of 07/07/2024) Medications insulin glargine (LANTUS SOLOSTAR) 100 UNIT/ML [...] suspected opioid overdose. Seek immediate medical attention. [email or web address]?v=[email or web address] 1 Each 3 11/28/19 23 Active NovoLIN [...] MG/DOSE)) Inject under the skin. Obtaining from [employer] (formerly [employer]) Active Atorvastatin Calcium 40 MG Oral Tablet [...] as of this encounter (statuses as of 07/07/2024) Active Problems Problem Noted Date Diagnosed Date [...] as of this encounter (statuses as of 07/07/2024) Resolved Problems Problem Noted Date Diagnosed Date [...] (09/03/2009): Per Obesity Taxonomy Coronary atherosclerosis of [place] coronary artery 09/15/2008 10/03/2008 Malaise and fatigue [...] as of this encounter (statuses as of 07/07/2024) Immunizations Name Administration Dates Next Due COVID-19 mRNA, LNP-s, No Pre serve, 2-Dose Series (BlueConic) 11/08/2020,10/11/2020 HEP A - Hepatitis A (Adult > 18 yrs) 04/11/2011, 09/20/2010 Hepatitis B, 20+ yrs 07/05/2015 Pneumococcal Conjugate Vacci ne, 20-valent ([id number]) 03/13/2023 Pneumococcal Polysaccharide PPV23 (Pneumovax) 02/19/2018,03/09/2007 Seasonal [...] OUTPATIENT PSYCHIATRY RETURN VISIT DIVISION OF PSYCHIATRY [place] [address] Name: Carmen Tyson : 1970 Date and Time Patient was Seen: 07/07/2024 at 9:27am Patient location: HOME. I was not in a hospital or clinic location. After connecting through televideo, patient was verified with two unique identifiers. Patient (or authorized legal insurance account representative) was then informed that this was a Telemedicine visit and being conducted confidentially over secure lines. Methods to assure confidentiality were taken. Patient acknowledged consent and understanding of privacy and security of the Telemedicine visit. The patient agreed to participate. Start Time: 9:27 am Stop Time: Total direct [id number] time: Physical Location of patient: home CC: [...] "I suppressed it". She reported h/o taking [place]("Iwas afraid of it because of blood work"), [...] message that she wants lunesta sent to [facility] and that she has insurance issues. It was sentto [facility] and a message was sent to her that maybe insurance doesn't cover it any more. During this encounter , she informed this scientific writer that she changed insurance and have issues with getting some of her other meds. Pt said lunesta works so wants to continue it. She doesn't want to try any other sleep aid. She also takes trazodone 200mg hs which alone doesn't manage her sleep.Have tried trazodone 400mg in the past w/o benefit prior to starting care with this scientific writer. Been taking lunesta for 2 years. Have tried restoril in the past w/o benefit. Other meds that she has tried are : [place]("I was afraid of it because of blood [...] pump 200 Strip 5 Insulin Infusion Pump ([employer] 630G INSULIN PUMP) KIT Use as directed. CPAP every night at bedtime. Glucagon Emergency 1 MG Injection Kit As directed 1 Kit 3 Naloxone HCl 4 MG/0.1ML Nasal Liquid (Narcan Nasal) Administer 1 spray into 1 nostril for suspectedopioid overdose. Seek immediate medical attention. https://[email or web address]/watch?v=[email or web address] 1 Each 3 NovoLIN R ReliOn 100 [...] MG/DOSE)) Inject under the skin. Obtaining from [employer] (formerly [employer]) Atorvastatin Calcium 40 MG Oral Tablet (Lipitor) [...] pump 200 Strip 5 Insulin Infusion Pump ([employer] 630G INSULIN PUMP) KIT Use as directed. CPAP every night at bedtime. Glucagon Emergency 1 MG Injection Kit As directed 1 Kit 3 Naloxone HCl 4 MG/0.1ML Nasal Liquid (Narcan Nasal) Administer 1 spray into 1 nostril for suspectedopioid overdose. Seek immediate medical attention. https://www.youtube.com/[email or web address]?v=[email or web address] 1 Each 3 NovoLIN R ReliOn 100 [...] MG/DOSE)) Inject under the skin. Obtaining from [employer] (formerly [employer]) Atorvastatin Calcium 40 MG Oral Tablet (Lipitor) [...] by activating mobile crisis teams and EMS. [facility] documented in this encounter Plan of Treatment Upcoming Encounters Date Type Department Care Team (Late st Contact Info) Description 07/08/2024 10:30 AM EST Telemedicine Gastroenterology, [facility] [address] [facility] [place] [address] Adam Bradshaw CRNP 132 [facility] [place] [address] 07/11/2024 10:00 AM EST Hem/Onc Treatment Hematology/Oncology [facility] [place] [facility] [phone] 07/12/2024 10:10 AM EST [facility] [phone] [address] [address] 07/20/2024 10:00 AM EST Imaging [facility] 2nd Floor Cardiology, [place] [address] [facility] [place] [phone] 08/11/2024 12:30 PM EST Telemedicine Psychiatry [facility] [address] [place] [phone] Nhi Fritz CRNP [address] [place] [address] 09/14/2024 2:00 PM EDT Office Visit Hematology/Oncology [facility] [place] [address] [facility] [place] [phone] Sunil Bourgeois [facility] [address] [facility] [address] 09/15/2024 9:30 AM EDT Telemedicine Pharmacy, [facility] [address] [place] [address] [facility] [address] [place] [address] 09/29/2024 1:00 PM EDT Office Visit [facility], [place] [address] [place] [address] Jadiel Epstein CRNP [address] [place] [address] 10/18/2024 2:20 PM EDT Telemedicine Hepatology, [place] [address] [place], [place] [phone] [place] Sald[place] [address] [place] [address] 12/14/2024 12:20 PM EDT Office [facility] [place] [place] [address] Scott Weldon MD 132 [place] [address] 03/13/2025 2:00 PM EDT Office Visit Nephrology, [facility] [address] [place] [address] Jonathan Mathew MD [address] [place] [address] 06/16/2025 11:40 AM EST Office [facility] [place] [place] [address] Scott Weldon MD [address] [facility] [place] [address] Scheduled Procedures Name Priority Associated Diagnoses Date/Ti [...] Depression Monitoring 05/17/2025 05/17/2024 GFR 06/14/2025 06/14/2024, 02/2024, 03/10/2024, Additional history exists Pap Smear [...] this encounter Medical Devices Implanted Type Area Chemical Cell Changer Device Identifier Shelf Expiration Date Model / Serial / Lot Neurostimul Intellis Adaptiv - [id number] - [id number] Implanted:Qty: 1 on 08/22/2022 by Rafia Small MD at OR [facility] N/A: Spine Lumbar [employer] 06/21/2023 [id number] / [id number] / Description:battery Medtronic Lead Kit 60 Cm Implanted:Qty: 1 on 08/22/2022 by Rafia Small MD at OR [facility] N/A: Spine Lumbar 02/01/2026 [id number] / / [id number] Medtronic Lead Kit 60cm Implanted:Qty: 1 on 08/22/2022 by Rafia Small MD at OR [facility] N/A: Spine Lumbar 03/21/2026 [id number] / / [id number] Envelope Tyrx Med Antibacteril - [id number] Implanted:Qty: 1 on 08/22/2022 by Rafia Small MD at OR [facility] N/A: Spine Lumbar [employer] 03/10/2023 [id number] / / [id number] Hemostatic Clip Res 235cm - [id number] Implanted:Qty: 4 on 10/05/2023 by Aj Pruett DO at ENDOSCOPY [facility]COPY 02/03/2026 [id number] / / Hemostatic Clip Res 235cm - [id number] Implanted:Qty: 1 on 10/05/2023 by Aj Pruett DO at ENDOSCOPY [facility] : ENDOSCOPY 02/02/2026 [id number] / / documented as of this encounter Visit Diagnoses Diagnosis PTSD (post-traumatic stress disorder)- Primary Posttraumatic stress disorder MDD (major depressive disorder), recurrent, in full remission (HCC) Major depressive disorder, recurrent episode, in full remission MICHELLE (generalized anxiety disorder) Generalized anxiety disorder documented in this encounter [...] Power of Attor narda? No Care Teams Crane Man Relationship Specialty Start Date End Date Scott Weldon MD [address] [place] [address] PCP - General Family Medicine 08/03/18 documented as of this encounter
--- OUTSIDE RECORDS SUMMARY | 2024-09-10 21:22 | External Medical Summary | Summary of Care ---
Author Name Unknown Organization [facility] Address [address] [facility] [address] Phone [phone] Care Team Providers Care Set Up Mold Technician Name Role Phone Scott Weldon MD Primary Care Provider + Encounter Details Date Type Department Care Team (Late st Contact Info) Description 06/17/2024 Result Scan Unspecified Department <No scans attached> [...] 5 02/18/20 17 Active Insulin Infusion Pump (MIN[employer]ks [employer]ors 630G INSULIN PUMP) KITIndications:Typ e 2 diabetes [...] suspected opioid overdose. Seek immediate medical attention. [email or web address] 1 Each 3 11/28/19 23 Active NovoLIN [...] MG/DOSE)) Inject under the skin. Obtaining from [employer] Active Atorvastatin Calcium 40 MG Oral Tablet [...] a week. 4 Patch 06/11/19 25 Active documented as of this encounter [...] (09/03/2009): Per Obesity Taxonomy Coronary atherosclerosis of [place] coronary artery 09/15/2008 10/03/2008 Malaise and fatigue [...] mRNA, LNP-s, No Pre serve, 2-Dose Series (Snapflow) 11/08/2020,10/11/2020 HEP A - Hepatitis A (Adult > 18 yrs) 04/11/2011, 09/20/2010 Hepatitis B, 20+ yrs 07/05/2015 Pneumococcal Conjugate Vacci ne, 20-valent ([id number]) 03/13/2023 Pneumococcal Polysaccharide PPV23 (Pneumovax) 02/19/2018,03/09/2007 Seasonal [...] 10:00 AM EST Hem/Onc Treatment Hematology/Oncology Treatment, [place] [address] [place], [place] [phone] 07/12/2024 10:10 AM EST [facility] [place] [facility] [address] [facility] [place] [phone] [place], [facility] [address] [place], [place] [address] [address] 07/20/2024 10:00 AM EST Imaging [facility] 2nd Floor Cardiology, [place] [address] [facility] [place] [phone] 08/11/2024 12:30 PM EST Telemedicine Psychiatry [facility] [address] [place] [phone] Nhi Fritz CRNP [address] [place] [address] 09/14/2024 2:00 PM EDT Office Visit Hematology/Oncology [facility] 200 [facility] [place] [phone] Sunil Bourgeois MD [address] [facility] [place] [address] 09/15/2024 9:30 AM EDT Telemedicine Pharmacy, [facility] [address] [place] [address] [facility] [place] [address] 09/29/2024 1:00 PM EDT Office Visit Family Practice [facility] [address] [place] [address] Jadiel Epstein CRNP [address] [place] [address] 10/18/2024 2:20 PM EDT Telemedicine Hepatology, [place] [address] [place] [address] [place] [address] [place], [place] [address] 12/14/2024 12:20 PM EDT Office Visit [facility] [address] [place] [address] Scott Weldon MD 132 [facility] [place] [address] 03/13/2025 2:00 PM EDT Office Visit Nephrology, [facility] [address] [place] [address] Jonathan Mathew MD [address] [place] [address] 06/16/2025 11:40 AM EST Office Visit [facility] [address] [place] [address] Scott Weldon MD 132 [facility] [place] [address] Scheduled Procedures Name Priority Associated Diagnoses Date/Ti [...] 11/07/2019, Additional history exists Mammogram 09/01/2024 09/02/2023, 11/3 [...] this encounter Medical Devices Implanted Type Area Sand Bobber Device Identifier Shelf Expiration Date Model / Serial / Lot Neurostimul Intellis Adaptiv - [id number] - [id number] Implanted:Qty: 1 on 08/22/2022 by Rafia Small MD at OR [facility] N/A: Spine Lumbar [employer] 06/21/2023 [id number] / [id number] / Description:battery Medtronic Lead Kit 60 Cm Implanted:Qty: 1 on 08/22/2022 by Rafia Small MD at OR [facility] N/A: Spine Lumbar 02/01/2026 [id number] / / [id number] Medtronic Lead Kit 60cm Implanted:Qty: 1 on 08/22/2022 by Rafia Small MD at OR [facility] N/A: Spine Lumbar 03/21/2026 [id number] / / [id number] Envelope Tyrx Med Antibacteril - [id number] Implanted:Qty: 1 on 08/22/2022 by Rafia Small MD at OR [facility] N/A: Spine Lumbar [employer] 03/10/2023 [id number] / / [id number] Hemostatic Clip Res 235cm - [id number] Implanted:Qty: 4 on 10/05/2023 by Aj Pruett DO at ENDOSCOPY [facility] [employer] : ENDOSCOPY 02/03/2026 [id number] / / Hemostatic Clip Res 235cm - [id number] Implanted:Qty: 1 on 10/05/2023 by Aj Pruett DO at ENDOSCOPY [facility] [employer] : ENDOSCOPY 02/02/2026 [id number] / / documented as of this encounter Procedures Procedure Name Priority Date/Time Associated Diagnosis Comments RADIOLOGY SCANNED RESULT 06/17/2024 documented in this encounter Results * RADIOLOGY SCANNED RESULT (06/17/2024) 06/17/2024 us No Physician Data Unknown DIAGNOSTIC RADIOLOGY S ERVICES Final Result documented in this encounter Advance Directives * [...] Power of Attor narda? No Care Teams Set Up Mold Technician Relationship Specialty Start Date End Date Scott Weldon MD [address] [place] [address] PCP - General Family Medicine 08/03/18 documented as of this encounter
--- OUTSIDE RECORDS SUMMARY | 2024-09-10 21:22 | External Medical Summary ---
Author Name Unknown Address Unknown Organization [id number]:[facility] [place] [address] [place] [address] Laboratory Report Ordering Provider Test Date Status LUIS ANTONIO LEIVA 07/11/2024 10:00:38 Final Observation Date Value Abnormality Reference (Units ) Status Ferritin 07/11/2024 10:00:38 306 Above high normal 13 -150 (ng/mL) Final Postmenopausal women have hi gher ferritin levels than pre-menopausal women. The above reference interval is based on pre-menopausal women. Performing Location [facility] [place] [address] [place] [address]
--- OUTSIDE RECORDS SUMMARY | 2024-09-10 21:22 | External Medical Summary ---
Author Name Unknown Address Unknown Organization K09:[facility] [place] [address] Laboratory Report Ordering Provider Test Date Status LUIS ANTONIO LEIVA 07/11/2024 10:00:38 Final Observation Date Value Abnormality Reference (Units ) Status Nucleated erythrocytes/100 leukocytes [Ratio] in Blood by Automated count 07/11/2024 10:00:38 Final Performing Location [facility] [place] [address]
--- OUTSIDE RECORDS SUMMARY | 2024-09-10 21:22 | External Medical Summary ---
Author Name Unknown Address Unknown Organization K09:[facility] [place] [address] Laboratory Report Ordering Provider Test Date Status MARY LOUIE 07/11/2024 10:12:55 Final Warfarin Therapy
INR: 2 .0-3.0 conventional anticoagulation
INR: 2.5- 3.5 high intensity anticoagulation Observation Date Value Abnormality Reference (Units ) Status PT 07/11/2024 10:12:55 14.7 11.6-15.2 (seconds) Final INR 07/11/2024 10:12:55 1.1 0.8-1.2 Final Performing Location [facility] [place] [address]
--- OUTSIDE RECORDS SUMMARY | 2024-09-10 21:22 | External Medical Summary | Summary of Care ---
Author Name Unknown Organization [facility] Address [address] [place] [address] Phone [phone] Care Team Providers Care Electric Motor Winder Name Role Phone Scott Weldon MD Primary Care Provider + Reason for Referral * Evaluate & Treat - Unlimited Visits (Within 30 days (routine)) - Authorized Specialty Diagnoses / Procedures Referred By Contac t Referred To Contact Dietitian / Nutrition Services Diagnoses Cirrhosis of liver with ascites, unspecified hepatic cirrhosis type (HCC) Liban Hernandez CRNP [address] [place] [address] Phone: tel: fax: Referral ID Status Reason Start Date Expiration Date Visits Requested Visits Authorized [id number] Authorized Specialty Services Required 07/08/[phone] [...] Weldon MD [address] [place] [address] Phone: tel: fax: Referral ID Status Reason Start Date Expiration Date Visits Requested Visits Authorized [id number] Authorized Specialty Services Required 02/24/[phone] Encounter Details Date Type Department Care Team (Latest Contact Info) Description 07/08/2024 10:30 AM EST Telemedicine Gastroenterology, [facility] [address] [place] [address] Liban Hernandez CRNP [address] [place] [address] Cirrhosis of liver with ascites, unspecified hepatic [...] suspected opioid overdose. Seek immediate medical attention. [email or web address] 1 Each 3 11/28/19 23 Active NovoLIN [...] MG/DOSE)) Inject under the skin. Obtaining from [employer] Active Atorvastatin Calcium 40 MG Oral Tablet [...] mRNA, LNP-s, No Pre serve, 2-Dose Series (Band Metrics) 11/08/2020,10/11/2020 HEP A - Hepatitis A (Adult > 18 yrs) 04/11/2011, 09/20/2010 Hepatitis B, 20+ yrs 07/05/2015 Pneumococcal Conjugate Vacci ne, 20-valent ([id number]) 03/13/2023 Pneumococcal Polysaccharide PPV23 (Pneumovax) 02/19/2018,03/09/2007 Seasonal [...] two unique identifiers. Patient (or authorized legal pharmacy sales representative) was then informed that this was a Telemedicine visit and being conducted confidentially over secure lines. Methods to assure confidentiality were taken. Patient acknowledged consent and understanding of pr ivacy and security of the Telemedicine visit. The patient agreed to participate. CC: [facility] Cirrhosis f/u c/o bloating, worsening ascites (though [...] II EV. Other testing, a review of [facility] records shows an ED visit [...] DIAGNOSTIC performed by Aj Pruett DO atENDOSCOPY [facility] COLONOSCOPY, DIAGNOSTIC (RECTUM) 10/05/2023 hemorrhoids/biopsies show hyperplastic and inflammatory tissue/recall 5 years/COLONOSCOPY FLEXIBLE PROXIMAL DIAGNOSTIC performed by Aj Pruett DO at ENDOSCOPY [facility] EGD, FLEXIBLE, DIAGNOSTIC 01/22/2011 UPPER GI ENDOSCOPY DIAGNOSTIC performed by STACEY BENNETT at ENDOSCOPY [facility] EGD, FLEXIBLE, DIAGNOSTIC 01/19/2014 portal hypertensive gastropathy, benign gastric polyp, repeat 2 yrs/done @ [facility] EGD, FLEXIBLE, DIAGNOSTIC 02/08/2016 normal bx, portal hypertensive gastropathy, repeat 1.5 yrs/[facility] EGD, FLEXIBLE, DIAGNOSTIC 08/25/2017 retained food, repeat 1 yr/ESOPHAGOGASTRODUODENOSCOPY (EGD), FLEXIBLE, TRANSORAL, DIAGNOSTIC performed by Aj Pruett DO at ENDOSCOPY [facility] EGD, FLEXIBLE, DIAGNOSTIC 12/15/2018 esophageal varices, gastritis, gastric polyp, repeat 1 yr/ESOPHAGOGASTRODUODENOSCOPY (EGD), FLEXIBLE, TRANSORAL, DIAGNOSTIC performed by Aj Pruett DO at [facility] EGD, FLEXIBLE, DIAGNOSTIC 01/31/2020 fundic polyps, eso varices, portal hypertensive gastropathy, repeat 1 yr / ESOPHAGOGASTRODUODENOSCOPY (EGD), FLEXIBLE, TRANSORAL, DIAGNOSTIC performed by Aj Pruett DO at ENDOSCOPY [facility] EGD, FLEXIBLE, DIAGNOSTIC 10/09/2022 grade I esophageal varices/portal hypertension gastropathy/medium amount of food in stomach/ESOPHAGOGASTRODUODENOSCOPY (EGD), FLEXIBLE, TRANSORAL, DIAGNOSTIC performed by Aj Pruett DO at ENDOSCOPY [facility] EGD, FLEXIBLE, DIAGNOSTIC 10/05/2023 grade II esophageal varices/portal hypertensive gastropathy/multiple gastric polyps, resected and retrieved, clips placed/biopsies show fundic polyps/repeat 6 months/ESOPHAGOGASTRODUODENOSCOPY (EGD),FLEXIBLE, TRANSORAL, DIAGNOSTIC performed by Aj Pruett DO at ENDOSCOPY [facility] EGD, FLEXIBLE, DIAGNOSTIC 03/25/2024 grade II esophageal varices/portal hypertensive gastropathy/several endoclips stomach/multiple gastric polyps/biopsies show fundic polyps/recall 12-18 months/ESOPHAGOGASTRODUODENOSCOPY (EGD), FLEXIBLE, TRANSORAL, DIAGNOSTIC performed by Aj Pruett DO at ENDOSCOPY [facility] EGD, FLEXIBLE, W/BIOPSY 07/27/2012 small fundic stomach polyp/inflammation r/t reflux-repeat EGD in 1 yr EGD, W/ENDOSCOPIC US 01/22/2011 UPPER GI ENDOSCOPY ENDOSCOPIC ULTRASOUND performed by STACEY BENNETT at ENDOSCOPY [facility] EVAL NEUROSTIM PULSE GEN, W/ REPROGRAM N/A 06/27/2022 NEUROSTIMULATOR PULSE GENERATOR/ TRANSMITTER, WITH INTRAOPERATIVE OR SUBSEQUENT PROGRAMMING performed by Rafia Small MD at [facility] EVAL NEUROSTIM PULSE GEN, W/ REPROGRAM N/A 08/22/2022 NEUROSTIMULATOR PULSE GENERATOR/ TRANSMITTER, WITH INTRAOPERATIVE OR SUBSEQUENT PROGRAMMING performed by Rafia Small MD at OR [facility] HYSTEROSCOPY,DIAGNOSTIC 07/16/2006 NovaSure endomentrial ablation IMPLANT EPIDURAL NEUROELECTRODES N/A 06/27/2022 PERCUTANEOUS IMPLANTATION NEUROSTIMULATOR EPIDURAL performed by Rafia Small MD at OR [facility] IMPLANT EPIDURAL NEUROELECTRODES N/A 08/22/2022 PERCUTANEOUS IMPLANTATION NEUROSTIMULATOR EPIDURAL performed by Rafia Small MD at [facility] IMPLANT SPINAL NEURORECEIVER N/A 08/22/2022 INSERTION OR REPLACEMENT SPINAL NEUROSTIMULATOR GENERATOR performed by [facility] INJECT DX/THER SUBSTANCE INTERLAMINAR LUMBAR/SACRAL W IMAGE GUIDE 04/13/2017 INJECTION SPINE LUMBAR OR SACRAL performed by Rene Kate DO at OR [facility] INJECT DX/THER SUBSTANCE INTERLAMINAR LUMBAR/SACRAL W IMAGE GUIDE 12/10/2017 INJECTION SPINE LUMBAR OR SACRAL performed by Rene Kate DO at [facility] INSER TUNN ACC DEV;5 YRS/OLDER 03/24/2013 03/24/2013 at [facility], Placement of A-Port central venous access catheter with port Dr. Dewitt IOF CT GUIDED NEEDLE BIOPSY 07/11/2010 CT GUIDED NEEDLE ASPIRATION BIOPSY performed by JAMILA SAWANT at RADIOLOGY [facility] LIGATE/CUT OVIDUCT(S) 07/1995 Social History Tobacco Use [...] pump 200 Strip 5 Insulin Infusion Pump (MINIMTrialBee 630G INSULIN PUMP) KIT Use as directed. CPAP every night at bedtime. Glucagon Emergency 1 MG Injection Kit As directed 1 Kit 3 Naloxone HCl 4 MG/0.1ML Nasal Liquid (Narcan Nasal) Administer 1 spray into 1 nostril for suspectedopioid overdose. Seek immediate medical attention. [email or web address] 1 Each 3 NovoLIN R ReliOn 100 [...] MG/DOSE)) Inject under the skin. Obtaining from [employer] Atorvastatin Calcium 40 MG Oral Tablet (Lipitor) [...] TO CLINIC: Pt has hepatology f/u in [place] in October 2024. NOEL Bustos 07/08/2024 10:52 [...] 10:00 AM EST Hem/Onc Treatment Hematology/Oncology Treatment, [place] [address] [facility] [address] 07/12/2024 10:10 AM EST Office Visit Pharmacy, [place] [facility] [address] [facility] [address] [place] [address] 07/20/2024 10:00 AM EST Imaging [facility] 2nd Floor Cardiology, [place] [address] [facility] [place] [phone] 08/11/2024 12:30 PM EST Telemedicine Psychiatry [facility] [address] [place] [address] Nhi Fritz CRNP [address] [place] [address] 09/14/2024 2:00 PM EDT Office Visit Hematology/Oncology [facility] [address] [facility] [place] [phone] Sunil Bourgeois MD [address] [facility] [place] [address] 09/15/2024 9:30 AM EDT Telemedicine Pharmacy, [facility] [address] [facility] [place] [address] [facility] [address] [address] 09/29/2024 1:00 PM EDT Office Visit [facility] [address] [place] [address] Jadiel Epstein CRNP [address] [place] [address] 10/18/2024 2:20 PM EDT Telemedicine Hepatology, [place] [address] [place], [place] [id number] Enid Saldana [address] [place], [place] [phone] 12/14/2024 12:20 PM EDT Office Visit [facility] [address] [facility] [place] [address] Scott Weldon MD [address] [facility] [place] [address] 03/13/2025 2:00 PM EDT Office Visit Nephrology, [facility] [address] [facility] [place] [address] Jonathan Mathew MD [address] [facility] [place] [address] 06/16/2025 11:40 AM EST [facility] [place] [address] Scott Weldon MD [address] [place] [address] Scheduled Orders Name Type Priority Associated Diagnoses [...] this encounter Medical Devices Implanted Type Area Contract Negotiation Manager Device Identifier Shelf Expiration Date Model / Serial / Lot Neurostimul Intellis Adaptiv - [id number] - [id number] Implanted:Qty: 1 on 08/22/2022 by Rafia Small MD at OR [facility] N/A: Spine Lumbar [employer] 06/21/2023 [id number] / [id number] / Description:battery Medtronic Lead Kit 60 Cm Implanted:Qty: 1 on 08/22/2022 by Rafia Small MD at OR [facility] N/A: Spine Lumbar 02/01/2026 [id number] / / [id number] Medtronic Lead Kit 60cm Implanted:Qty: 1 on 08/22/2022 by Rafia Small MD at OR [facility] N/A: Spine Lumbar 03/21/2026 [id number] / / [id number] Envelope Tyrx Med Antibacteril - [id number] Implanted:Qty: 1 on 08/22/2022 by Rafia Small MD at OR [facility] N/A: Spine Lumbar [employer] 03/10/2023 [id number] / / [id number] Hemostatic Clip Res 235cm - [id number] Implanted:Qty: 4 on 10/05/2023 by Aj Pruett, at ENDOSCOPY [facility] ENDOSCOPY 02/03/2026 [id number] / / Hemostatic Clip Res 235cm - [id number] Implanted:Qty: 1 on 10/05/2023 by Aj Pruett DO at ENDOSCOPY [facility] : ENDOSCOPY 02/02/2026 [id number] / / documented as of this encounter [...] Power of Attor narda? No Care Teams Electric Motor Winder Relationship Specialty Start Date End Date Scott Weldon MD [address] [place] [address] PCP - General Family Medicine 08/03/18 documented as of this encounter
--- OUTSIDE RECORDS SUMMARY | 2024-09-10 21:23 | External Medical Summary | Summary of Care ---
Author Name Unknown Organization [facility] Address [address] [facility] [place] [address] Phone [phone] Care Team Providers Care Yarn Spooler Name Role Phone Scott Montoya MD Primary Care Provider + Reason for Visit * Reason Onset Date Comments Medication Refill 06/23/2024 Encounter Details Date Type Department Care Team (Late st Contact Info) Description 06/23/2024 Refill Family Practice [facility] [address] [place] [address] Scott Montoya MD [address] [place] [address] Hypomagnesemia; Controlled substance agreement signed; Chronic bilateral low back pain with sciatica, sciatica laterality unspecified; Chronic pain syndrome Allergies Active Allergy Reactions Criticality Noted Date Comments Naproxen Sodium Bleeding High 11/29/2013 Pollen 12/03/2022 Seasonal Food (See Comments) Anaphylaxis High 04/20/2019 Hot peppers (oils) Kiwi Extract Anaphylaxis High 04/20/2019 documented as of this encounter (statuses as of 06/29/2024) Medications insulin glargine (LANTUS SOLOSTAR) 100 UNIT/ML SOPN 50 units daily in case of pump malfunction 5 Pre-filled Pen Syringe Dosing Unit 3 07/25/20 16 Active B-D Ultrafine III, 5MM, Pen [...] suspected opioid overdose. Seek immediate medical attention. [email or web address] 1 Each 3 11/28/19 23 Active NovoLIN [...] MG/DOSE)) Inject under the skin. Obtaining from [employer] Active Atorvastatin Calcium 40 MG Oral Tablet (Lipitor)Indicati ons:Dyslipidemia, goal LDL below 100 Take 1 Tablet by mouth at bedtime. 90 Tablet 2 06/11/19 25 Active Escitalopram Oxalate 20 MG Oral Tablet (Lexapro) Take 1 Tablet by mouth in the morning. 90 Tablet 06/11/19 25 Active Empagliflozin 10 MG Oral Tablet (Jardiance)Indica tions:Type 2 diabetes mellitus with hemoglobin A1c goal of less than 8.0% ([facility]) Take 1 Tablet by [...] morning. 90 Tablet 2 06/11/19 25 Active Eszopiclone 2 MG Oral Tablet (Lunesta) Take 1 Tablet by mouth at bedtime. 30 Tablet 1 06/13/19 25 Active traZODone HCl 100 MG Oral [...] for Pain or Cramping. 180 Tablet 3 06/24/19 25 Active Dicyclomine HCl 20 MG Oral Tablet (Bentyl) Take 1 Tablet by mouth 2 times a day as needed for Pain or Cramping. 180 Tablet 3 11/15/19 23 025 Disconti nued(Ref ill) documented as of this encounter (statuses as of 06/29/2024) Active Problems Problem Noted Date Diagnosed Date [...] as of this encounter (statuses as of 06/29/2024) Resolved Problems Problem Noted Date Diagnosed Date [...] (09/03/2009): Per Obesity Taxonomy Coronary atherosclerosis of port [...] as of this encounter (statuses as of 06/29/2024) Immunizations Name Administration Dates Next Due COVID-19 mRNA, LNP-s, No Pre serve, 2-Dose Series (Pfizer) 11/08/2020,10/11/2020 HEP A - Hepatitis A (Adult > 18 yrs) 04/11/2011, 09/20/2010 Hepatitis B, 20+ yrs 07/05/2015 Pneumococcal Conjugate Vacci ne, 20-valent ([id number]) 03/13/2023 Pneumococcal Polysaccharide PPV23 (Pneumovax) 02/19/2018,03/09/2007 Seasonal [...] No 05/17/2024 Does the household have a [facility] hospit[facility] source of income? (Household - [...] Miscellaneous Notes * Telephone Encounter - Scott oMntoya MD - 06/24/2024 5:05 PM ESTSigned Prescriptions: Disp Refills Dicyclomine HCl 20 MG Oral Tablet (Bentyl) 180 Ta*3 Sig: Take 1 Tablet by mouth 2 times a day as needed for Pain or Cramping. Authorizing Provider: SCOTT MONTOYA Refused Prescriptions: Disp Refills Magnesium Oxide -Mg Supplement 400 (240 Mg*90 Tab*2 Sig: Take 1 Tablet by mouth in the morning. R efused By: FITO HILLMAN Reason for Refusal: Too soon Reason for Refusal Comment: pt advised Potassium Chloride Laura ER 20 MEQ Oral Tab*90 Tab*2 Sig: Take 1 Tablet by mouth in the morning. Refused By: FITO HILLMAN Reason for Refusal: Too soon Buprenorphine 5 MCG/HR Transdermal Patch W*4 Patch0 Sig: Place 1 Patch topically on the skin once a week. Refused By: FITO HILLMAN Reason for Refusal: Too soon * Telephone Encounter - Fito Fernandez [facility] - 06/24/2024 7:17 AM ESTPending Prescriptions: Disp Refills Dicyclomine HCl 20 MG Oral Tablet (Bentyl) 180 Ta*3 Sig: Take 1 Tablet by mouth 2 times a day as needed for Pain or Cramping. Refused Prescriptions: Disp Refills Magnesium Oxide -Mg Supplement 400 (240 Mg*90 Tab*2 Sig: Take 1 Tablet by mouth in the morning. Refused By: FITO HILLMAN Reason for Refusal: Too soon Reason for Refusal Comment: pt advised Potassium Chloride Laura ER 20 MEQ Oral Tab*90 Tab*2 Sig: Take 1 Tablet by mouth in the morning. Refused By: FITO HILLMAN Reason for Refusal: Too soon Buprenorphine 5 MCG/HR Transdermal Patch W*4 Patch0 Sig: Place 1 Patch topically on the skin once a week. Refused By: FITO HILLMAN Reason for Refusal: Too soon * Telephone Encounter - Fito Fernandez [facility] - 06/24/2024 7:17 AM EST [facility] is currently not authorized to approve refills for the pended medication(s) per refill protocol. Please approve if appropriate. Thank You, Fito Hillman [facility] Clinical Pharmacist [facility] ([facility]) 06/24/2024, 7:17 AM * Telephone Encounter - Fito Fernandez [facility] - 06/24/2024 7:13 AM EST Pending Prescriptions: Disp Refills Dicyclomine HCl 20 MG Oral Tablet (Bentyl)180 Ta*3 Sig: Take 1 Tablet by mouth 2 times a day as needed for Pain or Cramping. Magnesium Oxide -Mg Supplement 400 (240 M*90 Tab*2 Sig: Take 1 Tablet by mouth in the morning. Potassium Chloride Laura ER 20 MEQ Oral Ta*90 Tab*2 Sig: Take 1 Tablet by mouth in the morning. Buprenorphine 5 MCG/HR Transdermal Patch *4 Patch0 Sig: Place 1 Patch topically on the skin once a week. Last Visit: 05/18/2024 (in office), 03/16/2024 (telemedicine) Next Visit: 06/30/2024 If no future appointments scheduled, and last appointment is greater than a year ago, please schedule patient for a follow-up appointment Last date the medication was ordered: 11/14/22, 06/11/24, Pharmacy: [id number] [address] [facility] Is this request for a controlled [...] Results Component Value Date/Time CREAT 1.5 (H) 06/14/2024 02:20 PM CREAT 1.45 (A) 02/03/2024 12:00 AM CREAT 1.1 (H) 06/14/2020 09:00 AM POTASSIUM 4.2 06/14/2024 02:20 PM POTASSIUM 5.0 02/03/2024 12:00 AM POTASSIUM [...] Care Team (Late st Contact Info) Description 06/30/2024 8:00 AM EST Office Visit Family Practice [facility] [address] [place] [address] Scott Montoya MD [address] [place] [address] 06/30/2024 1:20 PM EST Office Visit Hepatology, [facility] [address] [place] [address] Jazzy Chu DO [address] [place] [address] 07/05/2024 9:10 AM EST Office Visit Pharmacy, [facility] [address] [place] [phone] [facility] [address] [facility], [place] [address] 07/07/2024 9:30 AM EST Telemedicine Psychiatry [facility] [address] [place] [address] Nhi Fritz CRNP [address] [place] [address] 07/08/2024 10:30 AM EST Telemedicine Gastroenterology, [facility] 132 [facility] [place] [address] Adam Bradshaw CRNP [address] [place] [address] 07/11/2024 10:00 AM EST Hem/Onc Treatment Hematology/Oncology Treatment, [place] [address] [facility] [address] 07/20/2024 10:00 AM EST Imaging [facility] 2nd Floor Cardiology, [place] [address] [facility] [place] [phone] 09/14/2024 2:00 PM EDT Office Visit Hematology/Oncology [facility] 200 [facility] [place] [phone] Sunil Bourgeois MD 200 [facility] [place] [address] 09/15/2024 9:30 AM EDT Telemedicine Pharmacy, [facility] [address] [place] [address] [facility] [address] [place] [address] 12/14/2024 12:20 PM EDT Office Visit Family Practice [facility] [address] [place] [address] Scott Montoya MD [address] [place] [address] 06/16/2025 11:40 AM EST Office Visit Family [facility] [address] [place] [address] Scott Montoya MD [address] [place] [address] Scheduled Procedures Name Priority Associated Diagnoses Date/Ti [...] this encounter Medical Devices Implanted Type Area Tavern Operator Device Identifier Shelf Expiration Date Model / Serial / Lot Neurostimul Intellis Adaptiv - [id number] - [id number] Implanted:Qty: 1 on 08/22/2022 by Rafia Small MD at OR [facility] N/A: Spine Lumbar [employer] 06/21/2023 [id number] / [id number] / Description:battery Medtronic Lead Kit 60 Cm Implanted:Qty: 1 on 08/22/2022 by Rafia Small MD at OR [facility] N/A: Spine Lumbar 02/01/2026 [id number] / / [id number] Medtronic Lead Kit 60cm Implanted:Qty: 1 on 08/22/2022 by Rafia Small MD at OR [facility] N/A: Spine Lumbar 03/21/2026 [id number] / / [id number] Envelope Tyrx Med Antibacteril - [id number] Implanted:Qty: 1 on 08/22/2022 by Rafia Small MD at OR [facility] N/A: Spine Lumbar [employer] 03/10/2023 [id number] / / [id number] Hemostatic Clip Res 235cm - [id number] Implanted:Qty: 4 on 10/05/2023 by Aj Pruett DO at END[facility]COPY [facility] 02/03/2026 [id number] / / Hemostatic Clip Res 235cm - [id number] Implanted:Qty: 1 on 10/05/2023 by Aj Pruett DO at ENDOSCOPY [facility] : ENDOSCOPY 02/02/2026 [id number] / / documented as of this encounter [...] Power of Attor narda? No Care Teams Yarn Spooler Relationship Specialty Start Date End Date Scott Montoya MD [address] [place] [address] PCP - General Family Medicine 08/03/18 documented as of this encounter
--- OUTSIDE RECORDS SUMMARY | 2024-09-10 21:23 | External Medical Summary | Summary of Care ---
Author Name Unknown Organization [facility] Address [address] [place] [address] Phone [phone] Care Team Providers Care Book Coverer Name Role Phone Scott Weldon MD Primary Care Provider + Reason for Visit * Reason Comments Return Visit 6 month return Hospital Follow-Up [facility] 05/28-05/30: ab dominal pain Encounter Details Date Type Department Care Team (Latest Contact Info) Description 06/30/2024 8:00 AM EST Office Visit Family [facility] [address] [address] Scott Weldon MD [address] [place] [address] Diabetes mellitus due to underlying condition with stage 3a chronic kidney disease, without long-term current use of insulin (HCC)*; Other pancytopenia (HCC); Esophageal varices without bleeding, unspecified esophageal varices type (HCC); Hemiplegia and hemiparesis following cerebral infarction affecting left non-dominant side (HCC); Major depressive disorder, recurrent episode, moderate (HCC); Severe obesity (BMI 35.0-39.9) with comorbidity (HCC); Diabetic gastroparalysis (HCC) Allergies Active Allergy Reactions Criticality Noted Date Comments Naproxen Sodium Bleeding High 11/29/2013 Pollen 12/03/2022 Seasonal Food (See Comments) Anaphylaxis High 04/20/2019 Hot peppers (oils) Kiwi Extract Anaphylaxis High 04/20/2019 documented as of this encounter (statuses as of 06/30/2024) Medications insulin glargine (LANTUS SOLOSTAR) 100 UNIT/ML [...] 5 02/18/20 17 Active Insulin Infusion Pump (MINIMChallengePost 630G INSULIN PUMP) KITIndications:Ty pe 2 diabetes [...] suspected opioid overdose. Seek immediate medical attention. [email or web address]://[email or web address]?v=[email or web address] 1 Each 3 11/28/19 23 Active NovoLIN R ReliOn 100 UNIT/ML Injection Solution (insulin REGULAR human)Indications :Type 2 diabetes mellitus with hemoglobin A1c goal of less than 8.0% ([facility]),DM type 2, not at goal ([facility]) INJECT UP TO 200 UNITS [...] MG/DOSE)) Inject under the skin. Obtaining from [employer] Active Atorvastatin Calcium 40 MG Oral Tablet [...] cramping). 180 Tablet 2 06/29/19 25 Active Prochlorperazine Maleate 5 MG Oral Tablet (Compazine) Take 1 Tablet by mouth every 6 hours as needed for Nausea. 05/30/20 24 025 [facility]conti nued([facility] documented as of this encounter (statuses as of 06/30/2024) Active Problems Problem Noted Date Diagnosed Date [...] as of this encounter (statuses as of 06/30/2024) Resolved Problems Problem Noted Date Diagnosed Date [...] as of this encounter (statuses as of 06/30/2024) Immunizations Name Administration Dates Next Due COVID-19 mRNA, LNP-s, No Pre serve, 2-Dose Series (BioStratum) 11/08/2020,10/11/2020 HEP A - Hepatitis A (Adult > 18 yrs) 04/11/2011, 09/20/2010 Hepatitis B, 20+ yrs 07/05/2015 Pneumococcal Conjugate Vacci ne, 20-valent ([id number]) 03/13/2023 Pneumococcal Polysaccharide PPV23 (Pneumovax) 02/19/2018,03/09/2007 Seasonal [...] Sign Reading Time Taken Comments Blood Pressure 108/66 06/30/2024 8:03 AM EST Pulse 76 06/30/2024 8:03 AM EST Temperature - - Respiratory Rate 12 06/30/2024 8:03 AM EST Oxygen Saturation 92% 06/30/2024 8:03 AM EST Inhaled Oxygen Concentration - - [...] Progress Notes * Scott Weldon MD - 06/30/2024 8:40 AM EST Images from the original note were not included. Subjective Carmen Tyson is a 53 year old female presenting for Return Visit (6 month return) and Hospital Follow-Up ([facility] 05/28-05/30: abdominal pain) Here w/FLORESITA Luna Jah History of Present Illness The patient, with a history of esophageal varices, cirrhosis, chronic back and abd pain, portal hypertensive gastropathy, and multiple gastro polyps, presents for a follow-up visit after a recent hospital admission due to a flare-up of chronic abdominal pain. The patient reports that the pain was severe and debilitating, still present,often preventing her from engaging in regular activities. The pain is accompanied by nausea, which the patient describes as a constant presence. The patient also reports episodes of vomiting that occurred over the past weekend x2d. She had imaging CT & US noinfection noted. Pain in ER was more suprapubic. Reg abd pain can be lower, often chronic RUQ. Eating makes worse. Doesn't think had compazine mentioned in hosp notes. Reglan has been more helpful than zofran. Does not take Miralax--makes her feel sick doesn't like taste/texture. In addition to the abdominal pain and nausea, the patient has been dealing with chronic back pain. Despite being on pain management medication, including a Butrans patch, Lyrica, and baclofen, the patient reports that the back pain has not improved significantly. The patient also mentions chronic fatigue, which she believes may be a side effect of the baclofen. The patient is currently on Ozempic for diabetes management. Has been helpful for DM control & wt loss. She has had Nausea that pre-dated ozempic starting. Objective Blood pressure 108/66, pulse 76, resp. rate 12, SpO2 92%, not currently . Physical Exam Physical: BP 108/66 | Pulse 76 | Resp 12 | SpO2 92% General-No apparent Distress sitting. Pain with walking. Head, Eyes, Ears, Nose, Throat--Normocephalic, atraumatic Neck-Supple Lymph-no lymphadenopathy Lungs-Clear to Auscultation bilaterally Cardiovascular--Regular rate & Rhythm, +s1, s2, no murmurs Abdomen-soft, generally tender, nondistended + bowel sounds no rebound Extremities--no edema Neuro-alert & oriented x3 Results RADIOLOGY reviewed DIAGNOSTIC EGD: Grade 2 esophageal varices with no bleeding, portal hypertensive gastropathy, multiple gastricpolyps. Three polyps resected and retrieved. Several endoclips from prior polyp resection. (03/2024) Assessment and Plan Assessment & Plan Chronic Abdominal Pain Recent hospitalization for flare up. CT imaging and ultrasound of gallbladder were normal. Possiblecolitis symptoms reported. Pain worsens with eating. -Continue as needed antiemetic nausea medicines. - trial off Ozempic for one month to assess impact on abdominal pain and nausea. Chronic Back Pain Ongoing despite current pain management regimen including Butrans patch, Lyrica, and Baclofen. -Continue current pain management regimen. -Consider consultation with pain management for further evaluation and treatment options. Hypertension Reports of low blood pressure readings at home. -Monitor blood pressure at home and report readings to the office, especially if readings are low. Consider Rx to boost BP, but declines for now. Diabetes Currently on Ozempic. Concerns about potential side effects contributing to abdominal pain and nausea. -Trial off Ozempic for one month to assess impact on symptoms. -Continue monitoring blood glucose levels at home. General Health Maintenance -Declined shingles and flu vaccines. -Schedule follow-up appointment in three months. -Order labs in six months. -f/u Hepatology today as sched Diabetes mellitus due to underlying condition with stage 3a chronic kidney disease, without long-term current use of insulin (HCC) (Primary) - HEMOGLOBIN A1C; Future; Expected date: 12/28/2024 Other pancytopenia (HCC) Esophageal varices without bleeding, unspecified esophageal varices type (HCC) Hemiplegia and hemiparesis following cerebral infarction affecting left non- dominant side (HCC) Major depressive disorder, recurrent episode, moderate (HCC) Severe obesity (BMI 35.0-39.9) with comorbidity (HCC) Diabetic gastroparalysis (HCC) Wrap-Up Follow Up: Return in about 3 months (around 09/28/2024) for Return with Physician. | For: Return with Physician | Check-out note: Labs in 6 months Time: I spent a total of 40-54 minutes (exact time 44 mins) on the date of service in preparation, delivery, and documentation of the care provided to Carmen Tyson excluding any time spent in the performance of separately billed services. Text in this note was generated using an [employer] documentation service. I discussed the use of a device to record and summarize our discussion today. All persons present during the encounter consented to its use. documented in this encounter Nursing Notes * Kathie Soares LPN - 06/30/2024 8:03 AM EST The patient has been properly identified by confirmation of name and date of . Chief Complaint Patient presents with Return Visit 6 month return Hospital Follow-Up [facility] 05/28-05/30: abdominal pain documented in this encounter Plan of Treatment Upcoming Encounters Date Type Department Care Team (Late st Contact Info) Description 06/30/2024 1:20 PM EST Office Visit Hepatology, [facility] [address] [facility] [place] [address] Jazzy Chu DO [address] [facility] [place] [address] 07/05/2024 9:10 AM EST Office Visit Pharmacy, [facility] [address] [place] [phone] [facility] [address] [place] [address] 07/07/2024 9:30 AM EST Telemedicine Psychiatry [facility] [address] [place] [phone] Nhi Fritz CRNP [address] [place] [address] 07/08/2024 10:30 AM EST Telemedicine Gastroenterology, [facility] [place] [address] Adam Bradshaw CRNP [address] [facility] [place] [address] 07/11/2024 10:00 AM EST Hem/Onc Treatment Hematology/Oncology Treatment, [place] [address] [place], [place] [phone] 07/20/2024 10:00 AM EST Imaging [facility] 2nd Floor Cardiology, [place] [address] [place] [phone] 09/14/2024 2:00 PM EDT Office Visit Hematology/Oncology [facility] [address] [place] [phone] Sunil Bourgeois MD [address] [facility] [place] [address] 09/15/2024 9:30 AM EDT Telemedicine Pharmacy, [facility] [address] [place] [address] [facility] [address] [place] [address] 09/29/2024 1:00 PM EDT Office Visit [facility] [address] [place] [address] Jadiel Epstein CRNP [address] [place] [address] 12/14/2024 12:20 PM EDT Office Visit [facility] [address] [place] [address] Scott Weldon MD [address] [place] [address] 06/16/2025 11:40 AM EST Office Visit [facility] [address] [place] [address] Scott Weldon MD [address] [place] [address] Scheduled Orders Name Type Priority Associated Diagnoses Orde r Schedule HEMOGLOBIN A1C Lab Routine Diabetes mellitus due to underlying condition with stage 3a chronic kidney disease, without long-term current use of insulin (HCC) Expected: 12/28/2024 (Approximate), Expires: 06/30/2025 Scheduled Procedures Name Priority Associated Diagnoses Date/Ti [...] encounter Medical Devices Implanted Type Area Maintenance Foreman Device Identifier Shelf Expiration Date Model / Serial / Lot Neurostimul Intellis Adaptiv - [id number] - [id number] Implanted:Qty: 1 on 08/22/2022 by Rafia Small MD at OR [facility] N/A: Spine Lumbar [employer] 06/21/2023 [id number] / [id number] / Description:battery Medtronic Lead Kit 60 Cm Implanted:Qty: 1 on 08/22/2022 by Rafia Small MD at OR [facility] N/A: Spine Lumbar 02/01/2026 [id number] / / [id number] Medtronic Lead Kit 60cm Implanted:Qty: 1 on 08/22/2022 by Rafia Small MD at OR [facility] N/A: Spine Lumbar 03/21/2026 [id number] / / [id number] Envelope Tyrx Med Antibacteril - [id number] Implanted:Qty: 1 on 08/22/2022 by Rafia Small MD at OR [facility] N/A: Spine Lumbar [employer] 03/10/2023 [id number] / / [id number] Hemostatic Clip Res 235cm - [id number] Implanted:Qty: 4 on 10/05/2023 by Aj Pruett, DO at ENDOSCOPY [facility] : ENDOSCOPY 02/03/2026 [id number] / / Hemostatic Clip Res 235cm - [id number] Implanted:Qty: 1 on 10/05/2023 by Aj Pruett, DO at [facility]COPY [facility] : ENDOSCOPY 02/02/2026 [id number] / / documented as of this encounter Visit Diagnoses Diagnosis Diabetes mellitus due to underlying condition with stage 3a chronic kidney disease, without long-term current use of insulin (HCC)- Primary Other pancytopenia (HCC) Other pancytopenia Esophageal varices without bleeding, unspecified esophageal varices type (HCC) Hemiplegia and hemiparesis following cerebral infarction affecting left non- dominant side (HCC) Major depressive disorder, recurrent episode, moderate (HCC) Major depressive disorder, recurrent episode, moderate Severe obesity (BMI 35.0-39.9) with comorbidity (HCC) Morbid obesity Diabetic gastroparalysis (HCC) Type II or unspecified type diabetes [...] Power of Attor narda? No Care Teams Book Coverer Relationship Specialty Start Date End Date Scott Weldon MD [address] [place] [address] PCP - General Family Medicine 08/03/18 documented as of this encounter
--- OUTSIDE RECORDS SUMMARY | 2024-09-10 21:23 | External Medical Summary | Summary of Care ---
Author Name Unknown Organization [facility] Address [address] [place] [address] Phone [phone] Care Team Providers Care Global Compensation Director Name Role Phone Scott Weldon MD Primary Care Provider + Reason for Visit * Reason Onset Date Comments Medication Problem 06/17/2024 Encounter Details Date Type Department Care Team (Late st Contact Info) Description 06/17/2024 Telephone Psychiatry [facility] [address] [place] [address] Nhi Fritz CRNP [address] [place] [address] Medication Problem Allergies Active Allergy Reactions Criticality [...] 8.0% ([facility]) Use as directed. 07/30/19 18 Active CPAP every night at bedtime. Active Glucagon Emergency 1 MG Injection Kit As directed 1 Kit 3 09/05/19 23 Active Naloxone HCl 4 MG/0.1ML Nasal Liquid (Narcan Nasal)Indications: Controlled substance agreement signed,Chronic pain syndrome Administer 1 spray into 1 nostril for suspected opioid overdose. Seek immediate medical attention. [email or web address]://[email or web address]/[email or web address]?v=[email or web address] 1 Each 3 11/28/19 23 Active NovoLIN [...] MG/DOSE)) Inject under the skin. Obtaining from [email or web address] Active Atorvastatin Calcium 40 MG Oral Tablet [...] mRNA, LNP-s, No Pre serve, 2-Dose Series ([employer]) 11/08/2020,10/11/2020 HEP A - Hepatitis A (Adult > 18 yrs) 04/11/2011, 09/20/2010 Hepatitis B, 20+ yrs 07/05/2015 Pneumococcal Conjugate Vacci ne, 20-valent ([id number]) 03/13/2023 Pneumococcal Polysaccharide PPV23 (Pneumovax) 02/19/2018,03/09/2007 Seasonal [...] No 05/17/2024 Does the household have a [facility] source of income? (Household - for [...] Miscellaneous Notes * Telephone Encounter - Kayla Baron LPN - 06/17/2024 1:18 PM EST Prior auth needed for Eszopiclone 2 MG Oral Tablet (Lunesta). Please document in last note a dx of insomnia. documented in this encounter Plan of Treatment Upcoming Encounters Date Type Department Care Team (Late st Contact Info) Description 06/30/2024 1:20 PM EST Office Visit Hepatology, [facility] 132 [facility] [place] [address] Jazzy Chu DO 132 [facility] [place] [address] 07/05/2024 9:10 AM EST [facility] [place] [facility] [phone] [facility] [address] [place] [address] 07/07/2024 9:30 AM EST Telemedicine Psychiatry [facility] [address] [place] [phone] Nhi Fritz CRNP [address] [place] [address] 07/08/2024 10:30 AM EST Telemedicine Gastroenterology, [facility] [address] [place] [address] Adma Bradshaw CRNP [address] [place] [address] 07/11/2024 10:00 AM EST Hem/Onc Treatment Hematology/Oncology Treatment, [place] [address] [place], [place] [phone] 07/20/2024 10:00 AM EST Imaging [facility] 2nd Floor Cardiology, [place] [address] [place] [phone] 09/14/2024 2:00 PM EDT Office Visit Hematology/Oncology [facility] [address] [facility] [place] [phone] Sunil Bourgeois MD [address] [facility] [place] [address] 09/15/2024 9:30 AM EDT Telemedicine Pharmacy, [facility] [address] [place] [address] [facility] [place] [address] 12/14/2024 12:20 PM EDT Office Visit Family [facility] [address] [place] [address] Scott Weldon MD [address] [place] [address] 06/16/2025 11:40 AM EST Office Visit Family [facility] [address] [place] [address] Scott Weldon MD [address] [place] [address] Scheduled Procedures Name Priority Associated Diagnoses Date/Ti [...] Depression Monitoring 05/17/2025 05/17/2024 GFR 06/14/2025 06/14/2024, 120 02/2024, 03/10/2024, Additional history exists Pap Smear [...] this encounter Medical Devices Implanted Type Area Blueberry Grower Device Identifier Shelf Expiration Date Model / Serial / Lot Neurostimul Intellis Adaptiv - [id number] - [id number] Implanted:Qty: 1 on 08/22/2022 by Rafia Small MD at OR [facility] N/A: Spine Lumbar [employer] 06/21/2023 [id number] / [id number] / Description:battery Medtronic Lead Kit 60 Cm Implanted:Qty: 1 on 08/22/2022 by Rafia Small MD at OR [facility] N/A: Spine Lumbar 02/01/2026 [id number] / / [id number] Medtronic Lead Kit 60cm Implanted:Qty: 1 on 08/22/2022 by Rafia Small MD at OR [facility] N/A: Spine Lumbar 03/21/2026 [id number] / / [id number] Envelope Tyrx Med Antibacteril - [id number] Implanted:Qty: 1 on 08/22/2022 by Rafia Small MD at OR [facility] N/A: Spine Lumbar [employer] 03/10/2023 [id number] / / [id number] Hemostatic Clip Res 235cm - [id number] Implanted:Qty: 4 on 10/05/2023 by Aj Pruett DO at ENDOSCOPY [facility] : ENDOSCOPY 02/03/2026 [id number] / / Hemostatic Clip Res 235cm - [id number] Implanted:Qty: 1 on 10/05/2023 by Aj Pruett, DO at ENDOSCOPY [facility] : ENDOSCOPY 02/02/2026 [id number] / / documented as of this encounter [...] Power of Attor narda? No Care Teams Global Compensation Director Relationship Specialty Start Date End Date Scott Weldon MD [address] [facility] [place] [address] PCP - General Family Medicine 08/03/18 documented as of this encounter
--- OUTSIDE RECORDS SUMMARY | 2024-09-10 21:23 | External Medical Summary | Summary of Care ---
Author Name Unknown Organization [facility] Address [address] [facility] [place] [address] Phone [phone] Care Team Providers Care Intermediate Manager Name Role Phone Scott Montoya MD Primary Care Provider + Reason for Visit * Reason Onset Date Comments Medication Refill 06/23/2024 Encounter Details Date Type Department Care Team (Late st Contact Info) Description 06/23/2024 Refill Family Practice [facility] [address] [place] [address] [address] Scott Montoya MD [address] [place] [address] Hypomagnesemia; Controlled substance agreement signed; Chronic bilateral low back pain with sciatica, sciatica laterality unspecified; Chronic pain syndrome Allergies Active Allergy Reactions Criticality Noted Date Comments Naproxen Sodium Bleeding High 11/29/2013 Pollen 12/03/2022 Seasonal Food (See Comments) Anaphylaxis High 04/20/2019 Hot peppers (oils) Kiwi Extract Anaphylaxis High 04/20/2019 documented as of this encounter (statuses as of 06/24/2024) Medications insulin glargine (LANTUS SOLOSTAR) 100 UNIT/ML [...] suspected opioid overdose. Seek immediate medical attention. [email or web address] 1 Each 3 11/28/19 23 Active NovoLIN [...] MG/DOSE)) Inject under the skin. Obtaining from [employer] Active Atorvastatin Calcium 40 MG Oral Tablet [...] goal of less than 8.0% ([facility]) Take 1 Tablet by mouth [...] as of this encounter (statuses as of 06/24/2024) Active Problems Problem Noted Date Diagnosed Date [...] as of this encounter (statuses as of 06/24/2024) Resolved Problems Problem Noted Date Diagnosed Date [...] (09/03/2009): Per Obesity Taxonomy Coronary atherosclerosis of round [...] as of this encounter (statuses as of 06/24/2024) Immunizations Name Administration Dates Next Due COVID-19 mRNA, LNP-s, No Pre serve, 2-Dose Series (Pfizer) 11/08/2020,10/11/2020 HEP A - Hepatitis A (Adult > 18 yrs) 04/11/2011, 09/20/2010 Hepatitis B, 20+ yrs 07/05/2015 Pneumococcal Conjugate Vacci ne, 20-valent ([id number]) 03/13/2023 Pneumococcal Polysaccharide PPV23 (Pneumovax) 02/19/2018,03/09/2007 Seasonal [...] No 05/17/2024 Does the household have a [facility] source [facility] income? (Household [...] Telephone Encounter - Scott Montoya MD - 06/24/2024 5:05 PM ESTSigned Prescriptions: [...] soon * Telephone Encounter - Fito Fernandez [facility] - 06/24/2024 7:17 AM ESTPending Prescriptions: Disp [...] soon * Telephone Encounter - Fito Fernandez [facility] - 06/24/2024 7:17 AM EST [facility] is currently not authorized to approve refills for the pended medication(s) per refill protocol. Please approve if appropriate. Thank You, Fito Hillman [facility] Clinical Pharmacist Centralized Clinical Pharmacy Services (CCPS) 06/24/2024, 7:17 AM * Telephone Encounter - Fito Fernandez [facility] - 06/24/2024 7:13 AM EST Pending Prescriptions: [...] medication was ordered: 11/14/22, 06/11/24, Pharmacy: [id number] [address] [facility] Is this request for a [...] Care Team (Late st Contact Info) Description 06/27/2024 1:00 PM EST Office Visit Pharmacy, [place] [address] [place] [phone] Jayesh [address] [address] 06/30/2024 8:00 AM EST Office Visit Family Practice [facility] [address] [facility] [place] [address] Scott Montoya MD 132 [facility] [place] [address] 06/30/2024 1:20 PM EST Office Visit Hepatology, [facility] [address] [facility] [place] [address] Jazzy Chu DO [address] [place] [address] 07/07/2024 9:30 AM EST Telemedicine Psychiatry [facility] [address] [place] [address] Nhi Fritz CRNP [address] [place] [address] 07/08/2024 10:30 AM EST Telemedicine Gastroenterology, [facility] [address] [place] [address] Adam Bradshaw CRNP [address] [place] [address] 07/11/2024 10:00 AM EST Hem/Onc Treatment Hematology/Oncology [facility] [place] [facility] [phone] 07/20/2024 10:00 AM EST Imaging [facility] 2nd Floor Cardiology, [place] [address] [place] [phone] 09/14/2024 2:00 PM EDT Office Visit Hematology/Oncology [facility] [address] [facility] [place] [phone] Sunil Bourgeois MD 200 [facility] [place] [address] 09/15/2024 9:30 AM EDT Telemedicine Pharmacy, [facility] [address] [place] [address] [facility] [address] [place] [address] 12/14/2024 12:20 PM EDT Office Visit Family Practice [facility] [address] [place] [address] Scott Montoya MD [address] [place] [address] 06/16/2025 11:40 AM EST Office Visit Family [facility] [address] [place] [address] Scott Montoya MD [address] [place] [address] Scheduled Procedures Name Priority Associated Diagnoses Date/Ti [...] this encounter Medical Devices Implanted Type Area Process Engineering Intern Device Identifier Shelf Expiration Date Model / Serial / Lot Neurostimul Intellis Adaptiv - [id number] - [id number] Implanted:Qty: 1 on 08/22/2022 by Rafia Small MD at OR [facility] N/A: Spine Lumbar [employer] 06/21/2023 [id number] / [id number] / Description:battery Medtronic Lead Kit 60 Cm Implanted:Qty: 1 on 08/22/2022 by Rafia Small MD at OR [facility] N/A: Spine Lumbar 02/01/2026 [id number] / / [id number] Medtronic Lead Kit 60cm Implanted:Qty: 1 on 08/22/2022 by Rafia Small MD at OR [facility] N/A: Spine Lumbar 03/21/2026 [id number] / / [id number] Envelope Tyrx Med Antibacteril - [id number] Implanted:Qty: 1 on 08/22/2022 by Rafia Small MD at OR [facility] N/A: Spine Lumbar [employer] 03/10/2023 [id number] / / [id number] Hemostatic Clip Res 235cm - [id number] Implanted:Qty: 4 on 10/05/2023 by Aj Pruett DO at ENDOSCOPY [facility] ENDOSCOPY 02/03/2026 [id number] / / Hemostatic Clip Res 235cm - [id number] Implanted:Qty: 1 on 10/05/2023 by Aj Pruett DO at [facility]COPY [facility] : ENDOSCOPY 02/02/2026 [id number] / / documented as of this encounter [...] Power of Attor narda? No Care Teams Intermediate Manager Relationship Specialty Start Date End Date Scott Montoya MD [address] [place] [address] PCP - General Family Medicine 08/03/18 documented as of this encounter
--- OUTSIDE RECORDS SUMMARY | 2024-09-10 21:23 | External Medical Summary | Summary of Care ---
Author Name Unknown Organization [facility] Address [address] [facility] [place] [address] Phone [phone] Care Team Providers Care Commissions Analyst Name Role Phone Scott Weldon MD Primary Care Provider + Reason for Visit * Reason Onset Date Comments Medication Refill 06/29/2024 Encounter Details Date Type Department Care Team (Late st Contact Info) Description 06/29/2024 Telephone Family Practice [facility] [address] [place] [address] [address] Scott Weldon MD [address] [place] [address] Medication Refill Allergies Active Allergy Reactions Criticality [...] suspected opioid overdose. Seek immediate medical attention. [email or web address] 1 Each 3 11/28/19 23 Active NovoLIN [...] MG/DOSE)) Inject under the skin. Obtaining from [employer] Active Atorvastatin Calcium 40 MG Oral Tablet [...] Cramping. 180 Tablet 3 06/24/19 25 Active documented as of this encounter [...] (09/03/2009): Per Obesity Taxonomy Coronary atherosclerosis of [place] coronary artery 09/15/2008 10/03/2008 Malaise and fatigue [...] mRNA, LNP-s, No Pre serve, 2-Dose Series (InEdge) 11/08/2020,10/11/2020 HEP A - Hepatitis A (Adult > 18 yrs) 04/11/2011, 09/20/2010 Hepatitis B, 20+ yrs 07/05/2015 Pneumococcal Conjugate Vacci ne, 20-valent ([id number]) 03/13/2023 Pneumococcal Polysaccharide PPV23 (Pneumovax) 02/19/2018,03/09/2007 Seasonal [...] encounter Miscellaneous Notes * Telephone Encounter - Chandan Caballero CPhT - 06/29/2024 10:56 AM EST Pt calling to request Butrans Patch. Informed pt that RX is available at their pharmacy. Pt verbalized understanding and stated they will check with their pharmacy regarding this medication. Thank you, Chandan Caballero Sales Contract Administrator Centralized Clinical Pharmacy Services (CCPS) 06/29/2024,11:05 AM documented in this encounter Plan of Treatment Upcoming Encounters Date Type Department Care Team (Late st Contact Info) Description 06/30/2024 8:00 AM EST Office Visit Family Practice [facility] [address] [place] [address] [address] Scott Weldon MD [address] [place] [address] [address] 06/30/2024 1:20 PM EST Office Visit Hepatology, [facility] [address] [place] [address] [address] Jazzy Chu DO [address] [place] [address] 07/05/2024 9:10 AM EST Office Visit Pharmacy, [place] [address] [place] [address] [phone] Jayesh [facility] [address] [facility], [place] [address] 07/07/2024 9:30 AM EST Telemedicine Psychiatry [facility] [address] [place] [phone] Nhi Fritz CRNP [address] [place] [address] 07/08/2024 10:30 AM EST Telemedicine Gastroenterology, [facility] [address] [place] [address] Adam Bradshaw CRNP [address] [place] [address] 07/11/2024 10:00 AM EST Hem/Onc Treatment Hematology/Oncology Treatment, [place] [address] [facility], [place] [address] 07/20/2024 10:00 AM EST Imaging [facility] 2nd Floor Cardiology, [place] [address] [place] [phone] 09/14/2024 2:00 PM EDT Office Visit Hematology/Oncology [facility] [place] [phone] Sunil Bourgeois MD [facility] [address] 09/15/2024 9:30 AM EDT Telemedicine Pharmacy, [facility] [address] [place] [address] [facility] [address] [place] [address] 12/14/2024 12:20 PM EDT Office Visit Family Practice [facility] [address] [place] [address] Scott Weldon MD [address] [place] [address] 06/16/2025 11:40 AM EST Office Visit Family [facility] [address] [place] [address] Scott Weldon MD [address] [place] [address] Scheduled Procedures Name Priority Associated Diagnoses Date/Ti [...] this encounter Medical Devices Implanted Type Area Waste Duster Device Identifier Shelf Expiration Date Model / Serial / Lot Neurostimul Intellis Adaptiv - [id number] - [id number] Implanted:Qty: 1 on 08/22/2022 by Rafia Small MD at OR [facility] N/A: Spine Lumbar [employer] 06/21/2023 [id number] / [id number] / Description:battery Medtronic Lead Kit 60 Cm Implanted:Qty: 1 on 08/22/2022 by Rafia Small MD at OR [facility] N/A: Spine Lumbar 02/01/2026 [id number] / / [id number] Medtronic Lead Kit 60cm Implanted:Qty: 1 on 08/22/2022 by Rafia Small MD at OR [facility] N/A: Spine Lumbar 03/21/2026 [id number] / / [id number] Envelope Tyrx Med Antibacteril - [id number] Implanted:Qty: 1 on 08/22/2022 by Rafia Small MD at OR [facility] N/A: Spine Lumbar [employer] 03/10/2023 [id number] / / [id number] Hemostatic Clip Res 235cm - [id number] Implanted:Qty: 4 on 10/05/2023 by Aj Pruett, DO at ENDOSCOPY [facility] : ENDOSCOPY 02/03/2026 [id number] / / Hemostatic Clip Res 235cm - [id number] Implanted:Qty: 1 on 10/05/2023 by jA Pruett, DO at ENDOSCOPY [facility] : ENDOSCOPY 02/02/2026 [id number] / / documented as of this encounter [...] Power of Attor narda? No Care Teams Commissions Analyst Relationship Specialty Start Date End Date Scott Weldon MD 132 [facility] [place] [address] PCP - General Family Medicine 08/03/18 documented as of this encounter
--- OUTSIDE RECORDS SUMMARY | 2024-09-10 21:23 | External Medical Summary | Summary of Care ---
Author Name Unknown Organization [facility] Address [address] [facility] [place] [address] Phone [phone] Care Team Providers Care Rail Car Repairer Name Role Phone Scott Montoya MD Primary Care Provider + Reason for Visit * Reason Comments New Med Request Encounter Details Date Type Department Care Team (Late st Contact Info) Description 06/29/2024 Refill [facility] Practice [facility] [place] [address] Scott Montoya MD 132 [facility] [place] [address] Allergies Active Allergy Reactions Criticality Noted Date [...] suspected opioid overdose. Seek immediate medical attention. [email or web address] 1 Each 3 023 Active NovoLIN R ReliOn 100 UNIT/ML Injection Solution (insulin REGULAR human)Indications :Type 2 diabetes mellitus with hemoglobin A1c goal of less than 8.0% (HCC),DM type 2, not at goal ([facility]) INJECT UP TO 200 UNITS SUBCUTANEOSULY ONCE DAILY VIA PUMP 60 mL 023 Active Ondansetron 8 MG Oral Tablet Disintegrating (Zofran) PLACE 1 TABLET ON TONGUE AND DISSOLVE EVERY 8 HOURS NEEDED FOR NAUSEA 30 Tablet 024 Active Pregabalin 100 MG Oral Capsule (Lyrica)Indicatio ns:Bilateral low back pain with sciatica, sciatica laterality unspecified, unspecified chronicity Take 1 Capsule by mouth in the morning and 1 Capsule at noon and 1 Capsule before bedtime. 300 Capsule 1 04/25/20 24 4:07 PM EST 024 Active Ozempic (2 MG/DOSE) 8 MG/3ML Subcutaneous Solution Pen-injector (Semaglutide (2 MG/DOSE)) Inject under the skin. Obtaining from [employer] Active Atorvastatin Calcium 40 MG Oral Tablet (Lipitor)Indicati ons:Dyslipidemia, goal LDL below 100 Take 1 Tablet by mouth at bedtime. 90 Tablet 2 025 Active Escitalopram Oxalate 20 MG Oral Tablet (Lexapro) Take 1 Tablet by mouth in the morning. 90 Tablet 025 Active Empagliflozin 10 MG Oral Tablet (Jardiance)Indica tions:Type 2 diabetes mellitus with hemoglobin A1c goal of less than 8.0% (HCC) Take 1 Tablet by mouth in the morning. 90 Tablet 2 025 Active Magnesium Oxide -Mg Supplement 400 (240 Mg) MG Oral Tablet (Mag-Ox)Indicatio ns:Hypomagnesemia Take 1 Tablet by mouth in the morning. 90 Tablet 2 025 Active Pantoprazole Sodium 40 MG Oral Tablet Delayed Release (Protonix)Indicat ions:Esophageal varices without bleeding, unspecified esophageal varices type (HCC),Colitis Take 1 Tablet by mouth in the morning. 90 Tablet 2 025 Active Potassium Chloride Laura ER 20 MEQ Oral Tablet Extended Release Take 1 Tablet by mouth in the morning. 90 Tablet 2 025 Active Eszopiclone 2 MG Oral Tablet (Lunesta) Take 1 Tablet by mouth at bedtime. 30 Tablet 1 025 Active traZODone HCl 100 MG Oral Tablet (Desyrel) Take 1-2 Tablets by mouth at bedtime. 180 Tablet 025 Active Baclofen 10 MG Oral Tablet (Lioresal)Indicat [...] 025 Active Loratadine 10 MG Oral Tablet (Claritin)Indicat ions:Allergic rhinitis Take 1 Tablet by mouth in the morning. For allergies.. 90 Tablet 3 025 Active Buprenorphine 5 MCG/HR Transdermal Patch Weekly (Butrans)Indicati ons:Controlled substance agreement signed,Chronic bilateral low back pain with sciatica, sciatica laterality unspecified,Chron ic pain syndrome Place 1 Patch topically on the skin once a week. 4 Patch 025 Active Dicyclomine HCl 20 MG Oral Tablet (Bentyl) Take 1 Tablet by mouth 2 times a day as needed (pain or cramping). 180 Tablet 2 025 Active Dicyclomine HCl 20 MG Oral Tablet (Bentyl) Take 1 Tablet by mouth 2 times a day as needed for Pain or Cramping. 180 Tablet 3 025 2024 Discontinued documented as of this [...] (09/03/2009): Per Obesity Taxonomy Coronary atherosclerosis of [place] coronary artery 09/15/2008 10/03/2008 Malaise and fatigue 09/15/2008 03/14/20 13 Dyslipidemia, goal to be determined 09/15/2008 [...] yrs 07/05/2015 Pneumococcal Conjugate Vacci ne, 20-valent (Wezxlqs83) 03/13/2023 Pneumococcal Polysaccharide PPV23 (Pneumovax) 02/19/2018,03/09/2007 Seasonal [...] No 05/17/2024 Does the household have a [facility] source of income? (Household - for ages [...] Miscellaneous Notes * Telephone Encounter - Savanah Narayanan RPh - 06/29/2024 4:27 PM ESTSigned Prescriptions: Disp Refills Dicyclomine HCl 20 MG Oral Tablet (Bentyl) 180 Ta*2 Sig: Take 1 Tablet by mouth 2 times a day as needed (pain or cramping).Authorizing Provider: SCOTT MONTOYA User: SAVANAH NARAYANAN --- * Telephone Encounter - Savanah Narayanan RPh - 06/29/2024 4:25 PM EST Patient is switching pharmacies. Reissued balance of refills on current prescription(s) to [facility] Thank You Yimi GellerD Clinical Pharmacist Centralized Clinical Pharmacy Services (CCPS) [phone] / [phone] 06/29/2024, 4:27 PM documented in this encounter Plan of Treatment Upcoming Encounters Date Type Department Care Team (Late st Contact Info) Description 06/30/2024 8:00 AM EST Office Visit Family Practice [facility] [address] [place] [address] Scott Montoya MD [address] [place] [address] 06/30/2024 1:20 PM EST Office Visit Hepatology, [facility] [address] [place] [address] Jazzy Chu DO [address] [place] [address] 07/05/2024 9:10 AM EST Office Visit Pharmacy, [facility] [phone] [address] [address] 07/07/2024 9:30 AM EST Telemedicine Psychiatry [facility] [address] [place] [phone] Nhi Fritz CRNP [address] [place] [address] 07/08/2024 10:30 AM EST Telemedicine Gastroenterology, [facility] [address] [place] [address] Adam Bradshaw CRNP [address] [place] [address] 07/11/2024 10:00 AM EST Hem/Onc Treatment Hematology/Oncology Treatment, [place] [address] [place] [address] 07/20/2024 10:00 AM EST Imaging [facility] 2nd Floor Cardiology, [place] [address] [place] [phone] 09/14/2024 2:00 PM EDT Office Visit Hematology/Oncology [facility] 200 [facility] [place] [address] Sunil Bourgeois MD 200 [facility] [place] [address] 09/15/2024 9:30 AM EDT Telemedicine Pharmacy, [facility] [address] [place] [address] [facility] [place] [address] 12/14/2024 12:20 PM EDT Office Visit Family Practice [facility] [address] [place] [address] Scott Montoya MD [address] [place] [address] 06/16/2025 11:40 AM EST Office Visit Family [facility] [address] [place] [address] Scott Montoya MD [address] [place] [address] Scheduled Procedures Name Priority Associated Diagnoses Date/Ti [...] this encounter Medical Devices Implanted Type Area Pump Erector Helper Device Identifier Shelf Expiration Date Model / Serial / Lot Neurostimul Intellis Adaptiv - [id number] - [id number] Implanted:Qty: 1 on 08/22/2022 by Rafia Small MD at OR [facility] N/A: Spine Lumbar [employer] 06/21/2023 [id number] / [id number] / Description:battery Medtronic Lead Kit 60 Cm Implanted:Qty: 1 on 08/22/2022 by Rafia Small MD at OR [facility] N/A: Spine Lumbar 02/01/2026 [id number] / / [id number] Medtronic Lead Kit 60cm Implanted:Qty: 1 on 08/22/2022 by Rafia Small MD at OR [facility] N/A: Spine Lumbar 03/21/2026 [id number] / / [id number] Envelope Tyrx Med Antibacteril - [id number] Implanted:Qty: 1 on 08/22/2022 by Rafia Small MD at OR [facility] N/A: Spine Lumbar [employer] 03/10/2023 [id number] / / [id number] Hemostatic Clip Res 235cm - [id number] Implanted:Qty: 4 on 10/05/2023 by Aj Pruett DO at ENDOSCOPY [facility] : ENDOSCOPY 02/03/2026 [id number] / / Hemostatic Clip Res 235cm - [id number] Implanted:Qty: 1 on 10/05/2023 by Aj Pruett DO at ENDOSCOPY [facility] : ENDOSCOPY 02/02/2026 [id number] / / documented as of this encounter [...] Power of Attor narda? No Care Teams Rail Car Repairer Relationship Specialty Start Date End Date Scott Montoya MD [address] [place] [address] PCP - General Family Medicine 08/03/18 documented as of this encounter
--- OUTSIDE RECORDS SUMMARY | 2024-09-10 21:24 | External Medical Summary | Summary of Care ---
Author Name Unknown Organization [facility] Address [address] [facility] [place] [address] Phone [phone] Care Team Providers Care Hotel Valet Attendant Name Role Phone Scott Weldon MD Primary Care Provider + Encounter Details Date Type Department Care Team (Late st Contact Info) Description 03/21/2024 Telephone Pre Surgery Center, [facility] [address] [place] [address] Aj Pruett, [address] [facility] [place] [address] Allergies Active Allergy Reactions Criticality Noted Date Comments Naproxen Sodium Bleeding High 11/29/2013 Pollen 12/03/2022 Seasonal Food (See Comments) Anaphylaxis High 04/20/2019 Hot peppers (oils) Kiwi Extract Anaphylaxis High 04/20/2019 documented as of this encounter (statuses as of 06/20/2024) Medications insulin glargine (LANTUS SOLOSTAR) 100 UNIT/ML [...] suspected opioid overdose. Seek immediate medical attention. [email or web address]?[email or web address] 1 Each 3 11/28/19 23 Active NovoLIN R ReliOn 100 UNIT/ML Injection Solution (insulin REGULAR human)Indications :Type 2 diabetes mellitus with hemoglobin A1c goal of less than 8.0% (HCC),DM type 2, not at goal ([facility] [...] 4 4:07 PM EST 02/13/20 24 Active ONETOUCH ULTRASOFT LANCETS MISCIndications:D M type 2, not at goal ([facility]) check FS 6 times daily 4 Box 5 06/22/19 15 024 Disconti nued(Med ication List Clean Up) Loratadine 10 MG Oral Tablet (Claritin)Indicat ions:Allergic rhinitis TAKE 1 TABLET BY MOUTH IN THE MORNING FOR ALLERGIES. 90 Tablet 1 04/13/20 23 025 Disconti nued(Ref ill) Meclizine HCl 25 MG Oral Tablet (Antivert)Indicat ions:Vertigo Take 1 Tablet by mouth 3 times a day as needed for Dizziness. 30 Tablet 1 02/03/20 24 025 Disconti nued(Ref ill) Atenolol 25 MG Oral Tablet (Tenormin) Take 1 Tablet by mouth in the morning and 1 Tablet before bedtime. 024 Disconti nued(Med [facility] List Clean Up) Potassium Chloride Laura ER 20 MEQ Oral Tablet Extended Release Take 1 Tablet by mouth in the morning. 90 Tablet 3 4 6:06 PM EDT 02/12/20 24 025 Disconti nued(Ref ill) Magnesium Oxide -Mg Supplement 400 (240 Mg) MG Oral Tablet (Mag-Ox)Indicatio ns:Hypomagnesemia Take 1 Tablet by mouth in the morning. 90 Tablet 3 4 6:26 PM EDT 02/12/20 24 025 Disconti nued(Ref ill) Atorvastatin Calcium 40 [...] EST 02/12/20 24 025 Disconti nued(Ref ill) Furosemide 40 [...] EDT 02/26/20 24 025 Disconti nued(Ref ill) documented as of this encounter (statuses as of 06/20/2024) Active Problems Problem Noted Date Diagnosed Date [...] as of this encounter (statuses as of 06/20/2024) Resolved Problems Problem Noted Date Diagnosed Date [...] as of this encounter (statuses as of 06/20/2024) Immunizations Name Administration Dates Next Due COVID-19 mRNA, LNP-s, No Pre serve, 2-Dose Series (Optosecurity) 11/08/2020,10/11/2020 HEP A - Hepatitis A (Adult > 18 yrs) 04/11/2011, 09/20/2010 Hepatitis B, 20+ yrs 07/05/2015 Pneumococcal Conjugate Vacci ne, 20-valent ([id number]) 03/13/2023 Pneumococcal Polysaccharide PPV23 (Pneumovax) 02/19/2018,03/09/2007 Seasonal [...] encounter Miscellaneous Notes * Telephone Encounter - Fiorella Gallegos RN - 03/21/2024 9:27 AM EDT Attempted to call for pre anesthesia evaluation. No answer. Voice mail full documented in this encounter Plan of Treatment Upcoming Encounters Date Type Department Care Team (Late st Contact Info) Description 06/27/2024 1:00 PM EST Office Visit Pharmacy, [facility] [address] [place] [address] [address] 06/30/2024 8:00 AM EST Office Visit Family Practice [facility] [address] [facility] [place] [address] Scott Weldon MD [address] [facility] [place] [address] 06/30/2024 1:20 PM EST Office Visit Hepatology, [facility] [address] [place] [address] Jazzy Chu DO [address] [facility] [place] [address] 07/07/2024 9:30 AM EST Telemedicine Psychiatry [address] [place] [phone] Lam Nhi NOEL Oro [address] [place] [address] 07/08/2024 10:30 AM EST Telemedicine Gastroenterology, [facility] [address] [place] [address] Adam Bradshaw CRNP [address] [place] [address] 07/11/2024 10:00 AM EST Hem/Onc Treatment [facility]ematology[facility] [place] [facility] [phone] 07/20/2024 10:00 AM EST Imaging [facility] 2nd Floor Cardiology, [place] [address] [place] [phone] 09/14/2024 2:00 PM EDT Office Visit Hematology/Oncology [facility] [address] [facility] [place] [phone] Sunil [facility] [address] 09/15/2024 9:30 AM EDT Telemedicine Pharmacy, [facility] [address] [place] [address] [facility] [address] [place] [address] 12/14/2024 12:20 PM EDT Office Visit Family Practice [facility] [address] [place] [address] Scott Weldon MD [address] [address] 06/16/2025 11:40 AM EST Office Visit Family [facility] [address] [address] Scott Weldon MD [address] [place] [address] Scheduled Procedures Name Priority Associated Diagnoses Date/Ti [...] this encounter Medical Devices Implanted Type Area Social Work Associate Device Identifier Shelf Expiration Date Model / Serial / Lot Neurostimul Intellis Adaptiv - [id number] - [id number] Implanted:Qty: 1 on 08/22/2022 by Rafia Small MD at OR [facility] N/A: Spine Lumbar [employer] 06/21/2023 [id number] / [id number] / Description:battery Medtronic Lead Kit 60 Cm Implanted:Qty: 1 on 08/22/2022 by Rafia Small MD at OR [facility] N/A: Spine Lumbar 02/01/2026 [id number] / / [id number] Medtronic Lead Kit 60cm Implanted:Qty: 1 on 08/22/2022 by Rafia Small MD at OR [facility] N/A: Spine Lumbar 03/21/2026 [id number] / / [id number] Envelope Tyrx Med Antibacteril - [id number] Implanted:Qty: 1 on 08/22/2022 by Rafia Small MD at OR [facility] N/A: Spine Lumbar [employer] 03/10/2023 [id number] / / [id number] Hemostatic Clip Res 235cm - [id number] Implanted:Qty: 4 on 10/05/2023 by Aj Pruett, DO at ENDOSCOPY [facility] : ENDOSCOPY 02/03/2026 [id number] / / Hemostatic Clip Res 235cm - [id number] Implanted:Qty: 1 on 10/05/2023 by Aj Pruett, DO at [facility]COPY [facility] : ENDOSCOPY 02/02/2026 [id number] / / documented as of this encounter [...] Power of Attor narda? No Care Teams Hotel Valet Attendant Relationship Specialty Start Date End Date Scott Weldon MD [address] [place] [address] PCP - General Family Medicine 08/03/18 documented as of this encounter
--- OUTSIDE RECORDS SUMMARY | 2024-09-10 21:24 | External Medical Summary | Summary of Care ---
Author Name Unknown Organization [facility] Address [address] [place] [address] Phone [phone] Care Team Providers Care Assistant Elementary Teacher Name Role Phone Scott Weldon MD Primary Care Provider + Reason for Visit * Reason Onset Date Comments Medication Refill 06/09/2024 Encounter Details Date Type Department Care Team (Late st Contact Info) Description 06/09/2024 Refill Psychiatry [facility] [place] [address] [place] [address] Nhi Fritz CRNP [address] [place] [address] Allergies Active Allergy Reactions Criticality Noted Date Comments Naproxen Sodium Bleeding High 11/29/2013 Pollen 12/03/2022 Seasonal Food (See Comments) Anaphylaxis High 04/20/2019 Hot peppers (oils) Kiwi Extract Anaphylaxis High 04/20/2019 documented as of this encounter (statuses as of 06/13/2024) Medications insulin glargine (LANTUS SOLOSTAR) 100 UNIT/ML [...] suspected opioid overdose. Seek immediate medical attention. [email or web address]://[email or web address]/watch?v=[email or web address] 1 Each 3 11/28/19 23 Active NovoLIN [...] MG/DOSE)) Inject under the skin. Obtaining from [employer] Active Eszopiclone 2 MG Oral Tablet (Lunesta) Take 1 Tablet by mouth at bedtime. 30 Tablet 1 06/13/19 25 Active traZODone HCl 100 MG Oral Tablet (Desyrel) Take 1-2 Tablets by mouth at bedtime. 180 Tablet 06/11/19 25 Active Loratadine 10 MG [...] less than 8.0% ([facility]) Take 1 Tablet by [...] EDT 02/26/20 24 025 Disconti nued(Ref ill) traZODone HCl 100 MG Oral Tablet (Desyrel) Take 1-2 Tablets by mouth at bedtime. 180 Tablet 1 4 1:57 PM EST 04/14/20 24 025 Disconti nued(Ref ill) Escitalopram Oxalate [...] Patch 06/03/20 24 025 Disconti nued(Ref ill) documented as of this encounter (statuses as of 06/13/2024) Active Problems Problem Noted Date Diagnosed Date [...] as of this encounter (statuses as of 06/13/2024) Resolved Problems Problem Noted Date Diagnosed Date [...] (09/03/2009): Per Obesity Taxonomy Coronary atherosclerosis of ione coronary artery 09/15/2008 10/03/2008 Malaise and fatigue [...] as of this encounter (statuses as of 06/13/2024) Immunizations Name Administration Dates Next Due COVID-19 mRNA, LNP-s, No Pre serve, 2-Dose Series (FinAnalytica) 11/08/2020,10/11/2020 HEP A - Hepatitis A (Adult > 18 yrs) 04/11/2011, 09/20/2010 Hepatitis B, 20+ yrs 07/05/2015 Pneumococcal Conjugate Vacci ne, 20-valent ([id number]) 03/13/2023 Pneumococcal Polysaccharide PPV23 (Pneumovax) 02/19/2018,03/09/2007 Seasonal [...] Telephone Encounter - Rolando Martines DO - 06/13/2024 4:03 PM ESTSigned Prescriptions: Disp Refills Eszopiclone 2 MG Oral Tablet (Lunesta) 30 Tab*1 Sig: Take 1 Tablet by mouth at bedtime.Authorizing Provider: ROLANDO MARTINES traZODone HCl 100 MG Oral Tablet (Desyrel) 180 Ta*0 Sig: Take 1-2 Tablets by mouth at bedtime.Authorizing Provider: NHI FRITZ User: MISSY ROMERO * Telephone Encounter - Missy Romero [facility] - 06/11/2024 9:51 AM ESTPending Prescriptions: Disp Refills Eszopiclone 2 MG Oral Tablet (Lunesta) 30 Tab*1 Sig: Take 1 Tablet by mouth at bedtime. Signed Prescriptions: Disp Refills traZODone HCl 100 MG Oral Tablet (Desyrel) 180 Ta*0 Sig: Take 1-2 Tablets by mouth at bedtime. Authorizing Provider: NHI FRITZ Ordering User: MISSY ROMERO ---- * Telephone Encounter - Missy Romero RP - 06/11/2024 9:50 AM EST Trazodone rerouted as requested Es[facility]opiclozone-[facility] is currently not authorized to approve refills for the pended medication(s) per refill protocol. Please approve if appropriate. Thanks, Missy Romero, PharmD Clinical Pharmacist [facility] [phone] 06/11/2024 9:51 AM * Telephone Encounter - Arianne Ruff CPhT - 06/09/2024 3:11 PM EST Please reroute Rx to [email or web address] Pending Prescriptions: Disp Refills Eszopiclone 2 MG Oral Tablet (Lunesta) 30 Tab*1 Sig: Take 1 Tablet by mouth at bedtime. traZODone HCl 100 MG Oral Tablet (Desyrel)180 Ta*1 Sig: Take 1-2 Tablets by mouth at bedtime. Last Visit: Visit date not found (in office), 04/14/2024 (telemedicine) Visit date not found If no future appointments scheduled, and last appointment is greater than a year ago, please schedule patient for a follow-up appointment Last date the medication was ordered: 04/14/2024 Patient Phone Numbers Labs: Lab Results [...] Care Team (Late st Contact Info) Description 06/14/2024 2:00 PM EST Hem/Onc Treatment Hematology/Oncology Treatment, [place] [address] [place], [place] [address] [place], Chair 2 Hem Onc Scenery [address] [place] [address] 06/16/2024 8:30 AM EST Telemedicine Pharmacy, [facility] [address] [facility] [place] [address] [facility] [address] [facility] [place] [address] 06/27/2024 1:00 PM EST Office Visit Pharmacy, [place] [address] [phone] [address] [place] [address] 06/30/2024 8:00 AM EST Office Visit Family Practice [facility] [address] [facility] [place] [address] Scott Weldon MD [address] [place] [address] 06/30/2024 1:20 PM EST Office Visit Hepatology, [facility] [address] [facility] [place] [address] Jazzy Chu DO [address] [place] [address] 07/07/2024 9:30 AM EST Telemedicine Psychiatry [facility] [address] [place] [address] Nhi Fritz CRNP [address] [place] [address] 07/08/2024 10:30 AM EST Telemedicine Gastroenterology, [facility] [address] [place] [address] Adam Bradshaw CRNP [address] [place] [address] 07/11/2024 10:00 AM EST Hem/Onc Treatment [facility]ematology[facility] [place] [address] [facility] [phone] 07/20/2024 10:00 AM EST Imaging [facility] 2nd Floor Cardiology, [place] [address] [place] [phone] 09/14/2024 2:00 PM EDT Office Visit Hematology/Oncology [facility] [phone] Sunil Bourgeois MD [address] [facility] [address] 12/14/2024 12:20 PM EDT Office Visit [facility] [address] [place] [address] Scott Weldon MD [address] [place] [address] 06/16/2025 11:40 AM EST Office Visit [facility] [address] [place] [address] Scott Weldon MD [address] [place] [address] Scheduled Procedures Name Priority Associated Diagnoses Date/Ti [...] Monitoring 05/17/2025 05/17/2024 Pap Smear 09/07/2026 09/08/2023, 110 10/2014, 04/12/2015, [...] this encounter Medical Devices Implanted Type Area Upholsterer Assembly Line Device Identifier Shelf Expiration Date Model / Serial / Lot Neurostimul Intellis Adaptiv - [id number] - [id number] Implanted:Qty: 1 on 08/22/2022 by Rafia Small MD at OR [facility] N/A: Spine Lumbar [employer] 06/21/2023 [id number] / [id number] / Description:battery Medtronic Lead Kit 60 Cm Implanted:Qty: 1 on 08/22/2022 by Rafia Small MD at OR [facility] N/A: Spine Lumbar 02/01/2026 [id number] / / [id number] Medtronic Lead Kit 60cm Implanted:Qty: 1 on 08/22/2022 by Rafia Small MD at OR [facility] N/A: Spine Lumbar 03/21/2026 [id number] / / [id number] Envelope Tyrx Med Antibacteril - [id number] Implanted:Qty: 1 on 08/22/2022 by Rafia Small MD at OR [facility] N/A: Spine Lumbar [employer] 03/10/2023 [id number] / / [id number] Hemostatic Clip Res 235cm - [id number] Implanted:Qty: 4 on 10/05/2023 by Aj Pruett, DO at [facility]COPY [facility] : ENDOSCOPY 02/03/2026 [id number] / / Hemostatic Clip Res 235cm - [id number] Implanted:Qty: 1 on 10/05/2023 by Aj Pruett, DO at [facility]COPY [facility] : ENDOSCOPY 02/02/2026 [id number] / / documented as of this encounter [...] of Attor narda? No Care Teams Assistant Elementary Teacher Relationship Specialty Start Date End Date Scott Weldon MD [address] [facility] [place] [address] PCP - General Family Medicine 08/03/18 documented as of this encounter
--- OUTSIDE RECORDS SUMMARY | 2024-09-10 21:24 | External Medical Summary | Summary of Care ---
Author Name Unknown Organization [facility] Address [address] [facility] [address] Phone [phone] Care Team Providers Care Back Tender Cylinder Name Role Phone Scott Weldon MD Primary Care Provider + Reason for Visit * Reason Comments Infusion Venofer Encounter Details Date Type Department Care Team (Latest Contact Info) Description 05/16/2024 2:30 PM EST Hem/Onc Treatment Hematology/Oncology Treatment, [address] [phone] Nora, Chair 1 Hem Onc [address] [address] Iron deficiency anemia due to chronic blood loss*; Cirrhosis of liver without ascites, unspecified hepatic cirrhosis type (HCC); Iron deficiency anemia, unspecified iron deficiency anemia type; Type 2 diabetes mellitus with hemoglobin A1c goal of less than 8.0% (HCC); Stage 3b chronic kidney disease (HCC); Elevated lipase Allergies Active Allergy Reactions Criticality Noted Date Comments Naproxen Sodium Bleeding High 11/29/2013 Pollen 12/03/2022 Seasonal Food (See Comments) Anaphylaxis High 04/20/2019 Hot peppers (oils) Kiwi Extract Anaphylaxis High 04/20/2019 documented as of this encounter (statuses as of 06/18/2024) Medications insulin glargine (LANTUS SOLOSTAR) 100 UNIT/ML [...] 5 02/18/20 17 Active Insulin Infusion Pump ([employer] 630G INSULIN PUMP) KITIndications:Ty pe 2 diabetes [...] suspected opioid overdose. Seek immediate medical attention. [email or web address] 1 Each 3 11/28/19 23 Active NovoLIN [...] 1 Tablet before bedtime. 024 Disconti nued(Med ication List Clean Up) Potassium Chloride Laura ER [...] EST 02/12/20 24 025 Disconti nued(Ref ill) Baclofen 10 MG Oral Tablet (Lioresal)Indicat ions:Back spasm Take 1 Tablet by mouth in the morning and 1 Tablet at noon and 1 Tablet before bedtime. 90 Tablet 2 4 4:50 PM EDT 02/18/20 24 024 Disconti nued(Ref ill) Furosemide 40 MG Oral Tablet (Lasix) Take 1 Tablet by mouth every other day. 50 Tablet 1 4 8:54 AM EST 02/19/20 24 025 Disconti nued(Ref ill) Empagliflozin 10 MG Oral Tablet (Jardiance)Indica tions:Type 2 diabetes mellitus with hemoglobin A1c goal of less than 8.0% ([facility]) Take 1 Tablet by mouth in the [...] EST 04/14/20 24 025 Disconti nued(Ref ill) hydrOXYzine HCl 25 MG Oral Tablet TAKE 1 TABLET BY MOUTH DURING DAY EVERY 4-6 HOURS NEEDED FOR ANXIETY 450 Tablet 1 4 1:53 PM EST 04/14/20 24 024 Disconti nued(Med ication List Clean Up) Eszopiclone 2 MG Oral Tablet (Lunesta) Take 1 Tablet by mouth at bedtime. Do not start before May 04, 2024. 30 Tablet 2 4 11:35 AM EST 05/04/20 24 025 Disconti nued(Ref ill) Buprenorphine 5 MCG/HR Transdermal Patch Weekly (Butrans)Indicati ons:Controlled substance agreement signed,Chronic bilateral low back pain with sciatica, sciatica laterality unspecified,Chron ic pain syndrome Place 1 Patch topically on the skin once a week. 4 Patch 05/04/20 24 024 Disconti nued(Ref ill) Albuterol Sulfate HFA 108 (90 Base) MCG/ACT Inhalation Aerosol Solution Inhale 2 puffs by mouth every 6 hours as needed for shortness of breath 20.1 g 4 6:37 PM EST 03/19/20 24 025 Disconti nued(Ref ill) documented as of this encounter (statuses as of 06/18/2024) Active Problems Problem Noted Date Diagnosed Date [...] as of this encounter (statuses as of 06/18/2024) Resolved Problems Problem Noted Date Diagnosed Date [...] (09/03/2009): Per Obesity Taxonomy Coronary atherosclerosis of [place] coronary artery 09/15/2008 10/03/2008 Malaise and [...] as of this encounter (statuses as of 06/18/2024) Immunizations Name Administration Dates Next Due COVID-19 mRNA, LNP-s, No Pre serve, 2-Dose Series (Active [employer] MEMS) 11/08/2020,10/11/2020 HEP A - Hepatitis A (Adult > 18 yrs) 04/11/2011, 09/20/2010 Hepatitis B, 20+ yrs 07/05/2015 Pneumococcal Conjugate Vacci ne, 20-valent ([id number]) 03/13/2023 Pneumococcal Polysaccharide PPV23 (Pneumovax) 02/19/2018,03/09/2007 Seasonal [...] No 05/17/2024 Does the household have a [facility] source of income? (Household - for ages [...] 85 05/16/2024 2:49 PM EST Temperature 36.5 °C (97.7 °F) 05/16/2024 2:49 PM ES T Respiratory Rate [...] in stable condition. documented in this encounter Miscellaneous Notes * Result Encounter Note - Jonathan Mathew MD - 05/17/2024 3:19 PM EST Labs stable. Continue same documented in this encounter Plan of Treatment Upcoming Encounters Date Type Department Care Team (Late st Contact Info) Description 06/27/2024 1:00 PM EST [facility] [address] [facility] [place] [phone] [facility] [address] [place], [place] [address] [address] 06/30/2024 8:00 AM EST Office Visit Family Practice [facility] [address] [facility] [place] [address] Scott Weldon MD [address] [facility] [place] [address] 06/30/2024 1:20 PM EST Office Visit Hepatology, [facility] [address] [facility] [place] [address] Jazzy Chu DO [address] [place] [address] 07/07/2024 9:30 AM EST Telemedicine Psychiatry [address] [phone] Nhi Fritz CRNP [address] [place] [address] 07/08/2024 10:30 AM EST Telemedicine Gastroenterology, [facility] [address] [facility] [place] [address] Adam Bradshaw CRNP [address] [place] [address] 07/11/2024 10:00 AM EST Hem/Onc Treatment Hematology/Oncology Treatment, [place] [address] [place] [address] 07/20/2024 10:00 AM EST Imaging [facility] 2nd Floor Cardiology, [place] [address] [place] [phone] 09/14/2024 2:00 PM EDT Office Visit Hematology/Oncology [facility] [address] [place] [phone] Sunil Bourgeois MD [address] [facility] [place] [address] 09/15/2024 9:30 AM EDT Telemedicine Pharmacy, [facility] [address] [place] [address] [facility] [address] [place] [address] 12/14/2024 12:20 PM EDT Office Visit Family Practice [facility] [address] [place] [address] Scott Weldon MD [address] [place] [address] 06/16/2025 11:40 AM EST Office Visit [facility] Practice [facility] [address] [place] [address] Scott Weldon MD [address] [place] [address] Scheduled Procedures Name Priority Associated Diagnoses Date/Ti [...] encounter Medical Devices Implanted Type Area Fire Investigation Manager Device Identifier Shelf Expiration Date Model / Serial / Lot Neurostimul Intellis Adaptiv - [id number] - [id number] Implanted:Qty: 1 on 08/22/2022 by Rafia Small MD at OR [facility] N/A: Spine Lumbar [employer] 06/21/2023 [id number] / [id number] / Description:battery Medtronic Lead Kit 60 Cm Implanted:Qty: 1 on 08/22/2022 by Rafia Small MD at OR [facility] N/A: Spine Lumbar 02/01/2026 [id number] / / [id number] Medtronic Lead Kit 60cm Implanted:Qty: 1 on 08/22/2022 by Rafia Small MD at OR [facility] N/A: Spine Lumbar 03/21/2026 [id number] / / [id number] Envelope Tyrx Med Antibacteril - [id number] Implanted:Qty: 1 on 08/22/2022 by Rafia Small MD at OR [facility] N/A: Spine Lumbar [employer] 03/10/2023 [id number] / / [id number] Hemostatic Clip Res 235cm - [id number] Implanted:Qty: 4 on 10/05/2023 by Aj Pruett DO at ENDOSCOPY [facility] [employer] [facility] ENDOSCOPY 02/03/2026 [id number] / / Hemostatic Clip Res 235cm - [id number] Implanted:Qty: 1 on 10/05/2023 by Aj Pruett DO at ENDOSCOPY [facility] [employer] : ENDOSCOPY 02/02/2026 [id number] / / documented as of this encounter Procedures Procedure Name Priority Date/Time Associated Diagnosis Comments PROTEIN/ CREATININE RATIO, URINE Routine 05/16/2024 3:57 PM EST Stage 3b chronic kidney disease (HCC) URINALYSIS WITH MICROSCOPIC EXAM Routine 05/16/2024 3:57 PM EST Stage 3b chronic kidney disease (HCC) ALBUMIN / CREATININE RATIO, URINE Routine 05/16/2024 3:57 PM EST Type 2 diabetes mellitus with hemoglobin A1c goal of less than 8.0% (HCC) DIFFERENTIAL, AUTOMATED STAT 05/16/2024 2:33 PM EST Iron deficiency anemia, unspecified iron deficiency anemia type LIPID PANEL WITH DIRECT LDL IF TG IS HIGH Routine 05/16/2024 2:33 PM EST Type 2 diabetes mellitus with hemoglobin A1c goal of less than 8.0% (HCC) 25-HYDROXY VITAMIN D Routine 05/16/2024 2:33 PM EST Stage 3b chronic kidney disease (HCC) HEMOGLOBIN A1C Routine 05/16/2024 2:33 PM EST Type 2 diabetes mellitus with hemoglobin A1c goal of less than 8.0% (HCC) RENAL FUNCTION PANEL Routine 05/16/2024 2:33 PM EST Stage 3b chronic kidney disease (HCC) IRON SCREEN, INCLUDING TIBC STAT 05/16/2024 2:33 PM EST Iron deficiency anemia, unspecified iron deficiency anemia type CBC STAT 05/16/2024 2:33 PM EST Iron deficiency anemia, unspecified iron deficiency anemia type PTH Routine 05/16/2024 2:33 PM EST Stage 3b chronic kidney disease (HCC) LIPASE Routine 05/16/2024 2:33 PM EST Elevated lipase CBC STAT 05/16/2024 2:33 PM EST Iron deficiency anemia, unspecified iron deficiency anemia type DIFFERENTIAL, TECHNOLOGIST REVIEW Routine 05/16/2024 2:33 PM EST Iron deficiency anemia, unspecified iron deficiency anemia type MAGNESIUM Routine 05/16/2024 2:33 PM EST Stage 3b chronic kidney disease (HCC) LDL CHOLESTEROL (DIRECT MEASURE) Routine 05/16/2024 2:33 PM EST Type 2 diabetes mellitus with hemoglobin A1c goal of less than 8.0% (HCC) FERRITIN STAT 05/16/2024 2:33 PM EST Iron deficiency anemia, unspecified iron deficiency anemia type documented in this encounter Results * URINALYSIS WITH MICROSCOPIC EXAM (05/16/2024 3:57 PM EST) Color, Urine Colorless Colorless, Light Yellow, Yellow, Dark Yellow 05/16/2024 11:59 PM EST [facility] Clarity, Urine Clear Clear 05/16/2024 11:59 PM EST [facility] Glucose, Urine Negative Negative mg/dL 05/16/2024 11:59 PM EST [facility] Bilirubin, Urine Negative Negative 05/16/2024 11:59 PM EST [facility] Ketone, Urine Negative Negative mg/dL 05/16/2024 11:59 PM EST [facility] Specific [place], Urine 1.009 1.003 - 1.030 05/16/2024 11:59 PM EST [facility] Blood, Urine Negative Negative 05/16/2024 11:59 PM EST [facility] pH, Urine 6.0 5.0 - 7.5 Units 05/16/2024 11:59 PM EST [facility] Protein, Urine Negative Negative mg/dL 05/16/2024 11:59 PM EST [facility] Urobilinogen, Urine Normal Normal mg/dL 05/16/2024 11:59 PM EST [facility] Nitrite, Urine Negative Negative 05/16/2024 11:59 PM EST [facility] Esterase, Urine Negative Negative 05/16/2024 11:59 PM EST [facility] RBC, Urine 0-2 0 - 2 /HPF 05/16/2024 11:59 PM EST [facility] WBC, Urine 0-2 0 - 2 /HPF 05/16/2024 11:59 PM EST [facility] Bacteria, Urine 0-25 0 - 25 /HPF 05/16/2024 11:59 PM EST [facility] Urine Non-blood Collection / Unknown 05/16/2024 3:57 PM EST 05/16/2024 3:59 PM EST us Jonathan Mathew MD LAB URINE ORDERABLES Final Res ult Performing Organization Address [facility] de Phone Number [facility] [address] [place] [address] * (ABNORMAL) PROTEIN/ CREATININE RATIO, URINE (05/16/2024 3:57 PM EST) Protein/ Creatinine Ratio, Urine <316(H) <150 mg/g 05/17/2024 12:24 AM EST [facility] Protein, Random Urine <6 mg/dL 05/17/2024 12:24 AM EST [facility] Creatinine, Random Urine 19 mg/dL 05/17/2024 12:24 AM EST [facility] Urine Non-blood Collection / Unknown 05/16/2024 3:57 PM EST 05/16/2024 3:59 PM EST Narrative [facility] - 05/17/2024 12:24 AM EST Normal: <150 mg/g creatinine High: 150-500 mg/g creatinine Very High: >500 mg/g creatinine Nephrotic: >3000 mg/g creatinine us Jonathan Mathew MD LAB URINE ORDERABLES Final Res ult Performing Organization Address [facility] Phone Number LABORATORY [address] [address] * ALBUMIN / CREATININE RATIO, URINE (05/16/2024 3:57 PM EST) Albumin, Random Urine <1.20 mg/dL 05/17/2024 12:23 AM EST [facility] Creatinine, Random Urine 18 mg/dL 05/17/2024 12:23 AM EST [facility] Albumin / Creatinine Ratio, Urine Uninterpretable Albumin/Creatinine ratio due to very low albumin and creatinine values. <30 mg/g Creat 05/17/2024 12:23 AM EST [facility] Urine Urine specimen obtained by clean catch procedure / Unknown Non-blood Collection / Unknown 05/16/2024 3:57 PM EST 05/16/2024 3:59 PM EST Narrative [facility] [place] 05/17/2024 12:23 AM EST Normal: <30 mg/g creatinine High: 30-300 mg/g creatinine Very High: >300 mg/g creatinine Nephrotic: >2200 mg/g creatinine Scott Weldon MD LAB URINE ORDERABLES Fin al Result Performing Organization Address [facility] de Phone Number [facility] [address] [place] [address] * (ABNORMAL) LIPASE (05/16/2024 2:33 PM EST) Lipase 69(H) 13 - 60 U/L 05/18/2024 4:54 PM EST [facility] Blood Venous blood specimen / Unknown Venipuncture / Unknown 05/16/2024 2:33 PM EST 05/16/2024 2:47 PM EST Scott Weldon MD LAB BLOOD ORDERABLES Fin al Result Performing Organization Address [facility] de Phone Number [facility] [address] [place] [address] * LDL CHOLESTEROL (DIRECT MEASURE) (05/16/2024 2:33 PM EST) LDL Cholesterol (Direct Measure) 65 <=129 mg/dL 05/17/2024 6:16 AM EST [facility] Comment: LDL Cholesterol Reference Ranges (mg/dL): <70 Target level for high risk ASCVD patient <100 Optimal for general population 100-129 Near optimal for general population 130-159 Borderline high 160-189 High >=190 Very high Blood Venous blood specimen / Unknown Venipuncture / Unknown 05/16/2024 2:33 PM EST 05/16/2024 2:47 PM EST Scott Weldon MD LAB BLOOD ORDERABLES Fin al Result Performing Organization Address [facility] Co de Phone Number [facility] [address] [place] [address] * DIFFERENTIAL, TECHNOLOGIST REVIEW (05/16/2024 2:33 PM EST) nRBCs 05/16/2024 3:02 PM EST [facility] 56-02 Blood Venous blood specimen / Unknown Venipuncture / Unknown 05/16/2024 2:33 PM EST 05/16/2024 2:47 PM EST us Sunil Bourgeois MD LAB BLOOD ORDERABLES Final Res ult [facility] [address] [place] [address] * DIFFERENTIAL, AUTOMATED (05/16/2024 2:33 PM EST) Pathologist [facility] WBC 6.97 4.00 - 10.80 K/uL 05/16/2024 3:02 PM EST [facility] 56-02 Neutrophils % 66.3 40.0 - 75.0 % 05/16/2024 3:02 PM [facility] 56-02 Lymphocytes % 20.4 18.0 - 42.0 % 05/16/2024 3:02 PM [facility] 56-02 Monocytes % 8.8 1.0 - 11.0 % 05/16/2024 3:02 PM [facility] 56-02 Eosinophils % 4.2 0.0 - 6.0 % 05/16/2024 3:02 PM [facility] 56-02 Basophils % 0.3 0.0 - 2.0 % 05/16/2024 3:02 PM [facility] 56-02 Absolute Neutrophils 4.63 1.80 - 7.70 K/uL 05/16/2024 3:02 PM [facility] 56-02 Absolute Lymphocytes 1.42 1.00 - 4.80 K/ul 05/16/2024 3:02 PM [facility] 56-02 Absolute Monocytes 0.61 0.00 - 1.10 K/uL 05/16/2024 3:02 PM [facility] 56-02 Absolute Eosinophils 0.29 0.00 - 0.70 K/uL 05/16/2024 3:02 PM EST [facility] 56-02 Absolute Basophils 0.02 0.00 - 0.20 K/uL 05/16/2024 3:02 PM [facility] 56 Blood Venous blood specimen / Unknown Venipuncture / Unknown 05/16/2024 2:33 PM EST 05/16/2024 2:47 PM EST us Sunil Bourgeois MD LAB BLOOD ORDERABLES Final Res ult [place] [address] [place], [place] [id number] * (ABNORMAL) CBC (05/16/2024 2:33 PM EST) WBC 6.97 4.00 - 10.80 K/uL 05/16/2024 3:[address] RBC 4.16 3.85 - 5.15 M/uL 05/16/2024 3:[address] HGB 11.3(L) 12.0 - 15.3 g/dL 05/16/2024 3:[address] HCT 35.1(L) 36.0 - 45.2 % 05/16/2024 3:02 PM [facility] 56 MCV 84.4 81.5 - 97.5 fL 05/16/2024 3:02 PM [facility] 56 MCH 27.2 27.0 - 34.0 pg 05/16/2024 3:02 PM [facility] 56 MCHC 32.2 32.0 - 36.0 g/dL 05/16/2024 3:02 PM [facility] 56 RDW 17.2 11.5 - 15.5 % 05/16/2024 3:02 PM [facility] 56 PLT 71(L) 140 - 400 K/uL 05/16/2024 3:02 PM [facility] 56 MPV 9.6 6.6 - 11.1 fL 05/16/2024 3:02 PM [facility] 56 Blood Venous blood specimen / Unknown Venipuncture / Unknown 05/16/2024 2:33 PM EST 05/16/2024 2:47 PM EST Sunil Bourgeois MD LAB BLOOD ORDERABLES Final Res ult [facility] 56[address] [place] [address] * MAGNESIUM (05/16/2024 2:33 PM EST) Magnesium 1.5 1.5 - 2.6 mg/dL 05/16/2024 3:35 PM EST LABORATORY [facility] 56-02 Blood Venous blood specimen / Unknown Venipuncture / Unknown 05/16/2024 2:33 PM EST 05/16/2024 2:47 PM EST Jonathan Mathew MD LAB BLOOD ORDERABLES Final Res ult Performing Organization Address [facility] Co de Phone Number [facility] [address] [place] [address] * 25-HYDROXY VITAMIN D (05/16/2024 2:33 PM EST) 25-Hydroxy Vitamin D 35 >19 ng/mL 05/17/2024 5:22 AM EST [facility] Blood Venous blood specimen / Unknown Venipuncture / Unknown 05/16/2024 2:33 PM EST 05/16/2024 2:47 PM EST Narrative [facility] - 05/17/2024 5:22 AM EST Deficient: <20 ng/mL Insufficient: 20-29 ng/mL Recommended/Optimum:30-50 ng/mL Vitamin D intoxication is rare. If suspicious of Vitamin D toxicity, evaluation of serum Calcium and PTH is recommended. Jonathan Mathew MD LAB BLOOD ORDERABLES Final Res ult [facility] [address] [place] [address] * (ABNORMAL) RENAL FUNCTION PANEL (05/16/2024 2:33 PM EST) BUN 21(H) 6 - 20 mg/dL 05/16/2024 3:35 PM EST [facility] 56 CREATININE 1.4(H) 0.5 - 1.0 mg/dL 05/16/2024 3:35 PM EST [facility] 56 EGFR 47(L) >=60 mL/min 05/16/2024 3:35 PM EST [facility] 56 Comment:eGFR is calculated b ased on the CKD-EPI 2020 equation. SODIUM 142 135 - 146 mmol/L 05/16/2024 3:35 PM EST [facility] 56 POTASSIUM 3.9 3.5 - 5.1 mmol/L 05/16/2024 3:35 PM EST [facility] 56 CHLORIDE 104 98 - 107 mmol/L 05/16/2024 3:35 PM EST [facility] 56 CO2 26 22 - 32 mmol/L 05/16/2024 3:35 PM EST [facility] 56 ANION GAP 12 7 - 15 mmol/L 05/16/2024 3:35 PM [facility] 56 GLUCOSE 92 70 - 120 mg/dL 05/16/2024 3:35 PM [facility] 56 CALCIUM 9.0 8.4 - 10.2 mg/dL 05/16/2024 3:35 PM [facility] 56 Albumin 3.9 3.8 - 5.0 g/dL 05/16/2024 3:35 PM [facility] 56 Phosphorus 3.5 2.5 - 4.8 mg/dL 05/16/2024 3:35 PM [facility] 56 Blood Venous blood specimen / Unknown Venipuncture / Unknown 05/16/2024 2:33 PM EST 05/16/2024 2:47 PM EST us Jonathan Mathew MD LAB BLOOD ORDERABLES Final Res ult [facility] [address] [place] [address] * (ABNORMAL) PTH (05/16/2024 2:33 PM EST) PTH 156(H) 15 - 65 pg/mL 05/17/2024 5:22 AM EST LABORATORY [facility] Blood Venous blood specimen / Unknown Venipuncture / Unknown 05/16/2024 2:33 PM EST 05/16/2024 2:47 PM EST Jonathan Mathew MD LAB BLOOD ORDERABLES Final Res ult Performing Organization Address [facility]/ZIP Co de Phone Number [facility] [address] [place] [address] * LIPID PANEL WITH DIRECT LDL IF TG IS HIGH (05/16/2024 2:33 PM EST) Triglycerides 171 <=174 mg/dL 05/17/2024 4:50 AM EST [facility] Comment: Triglyceride Reference Ranges (mg/dL): <150 Acceptable 150-174 Borderline high 175-499 High >=500 Very high Cholesterol 142 <200 mg/dL 05/17/2024 4:50 AM EST [facility] Comment: Total Cholesterol Reference Ranges (mg/dL): <200 Desirable 200-239 Borderline high >=240 High HDL Cholesterol 52 >49 mg/dL 4:50 AM EST [facility] Comment: HDL Cholesterol Reference Ranges (mg/dL): >=60 High (Desirable) <50 Low (Undesirable) For Females <40 Low (Undesirable) For Males Non-HDL Cholesterol 90 <=159 mg/dL 05/17/2024 4:50 AM EST [facility] Comment: Non-HDL Cholesterol Reference Range (mg/dL): <100 Target level for high risk ASCVD patient <130 Optimal for general population 130-159 Near optimal for general population 160-189 Borderline High 190-219 High >=220 Very High Blood Venous blood specimen / Unknown Venipuncture / Unknown 05/16/2024 2:33 PM EST 05/16/2024 2:47 PM EST Scott Weldon MD LAB BLOOD ORDERABLES Fin al Result Performing Organization Address [facility]/ZIP Co de Phone Number [facility] [address] [place] [address] * (ABNORMAL) HEMOGLOBIN A1C (05/16/2024 2:33 PM EST) Pathologist [facility] Hemoglobin A1C 6.5(H) 4.0 - 5.6 % 05/17/2024 5:00 AM EST [facility] Comment:The use of HbA1c to monitor glycemic status is based on normal hemoglobin and HbA composition. This test should not be used in patients with abnormal hemoglobin that affects the half life of the red blood cell or the in vivo glycation rates. Estimated Average Glucose 140(H) <126 mg/dL 05/17/2024 5:00 AM EST [facility] Blood Venous blood specimen / Unknown Venipuncture / Unknown 05/16/2024 2:33 PM EST 05/16/2024 2:47 PM EST Scott Weldon MD LAB BLOOD ORDERABLES Fin al Result Performing Organization Address [facility]/ZIP Co de Phone Number [facility] [address] [place] [address] * IRON SCREEN, INCLUDING TIBC (05/16/2024 2:33 PM EST) [facility] Iron 52 33 - 151 ug/dL 05/17/2024 4:50 AM EST [facility] Iron Binding Capacity 281 250 - 425 ug/dL 05/17/2024 4:50 AM EST [facility] Transferrin Saturation Percent 19 15 - 55 % 05/17/2024 4:50 AM EST [facility] Blood Venous blood specimen / Unknown Venipuncture / Unknown 05/16/2024 2:33 PM EST 05/16/2024 2:47 PM EST us Sunil Bourgeois MD LAB BLOOD ORDERABLES Final Res ult Performing Organization Address City/[facility]/ZIP Co de Phone Number [facility] [address] [place] [address] * (ABNORMAL) FERRITIN (05/16/2024 2:33 PM EST) [facility] Ferritin 257(H) 13 - 150 ng/mL 05/17/2024 5:22 AM EST [facility] Comment:Postmenopausal women have higher ferritin levels than pre-menopausal women. The above reference interval is based on pre-menopausal women. Blood Venous blood specimen / Unknown Venipuncture / Unknown 05/16/2024 2:33 PM EST 05/16/2024 2:47 PM EST Sunil Bourgeois MD LAB BLOOD ORDERABLES Final Res ult [facility] [address] [place] [address] documented in this encounter Visit Diagnoses Diagnosis Iron deficiency anemia due to chronic blood loss- Primary Iron deficiency anemia secondary to blood loss (chronic) Cirrhosis of liver without ascites, unspecified hepatic cirrhosis type (HCC) Iron deficiency anemia, unspecified iron deficiency anemia type Type 2 diabetes mellitus with hemoglobin A1c goal of less than 8.0% (HCC) Stage 3b chronic kidney disease (HCC) Elevated lipase Other nonspecific abnormal serum enzyme levels documented in this encounter Administered Medications Inactive Administered Medications - up to 3 most recent administrations Medication Order MAR Action Action Date Dose Rate Site hEParin 100 UNIT/ML Lock Flush inj 500 Units 500 Units (5 mL), IV Lock, PRN Other, IV Flush, Starting on Thu05/16/24 at 1427, Until Thu05/16/24 at 2031, For 24 hours, Do not flush if lock, PICC, or central line not in place; IV infusing or unable to flush.Indications:Iron deficiency anemia due to chronic blood loss,Cirrhosis of liver without ascites, unspecified hepatic cirrhosis type (HCC) Given 05/16/2024 4:23 PM EST 500 Units Iron Sucrose (Venofer) 300 mg in NSS 250 mL ivpb 300 mg, IV Piggyback, ONCE, 1 dose, On Thu05/16/24 at 1600, Administer over 90 MinutesIndications:Iron deficiency anemia due to chronic blood loss,Cirrhosis of liver without ascites, unspecified hepatic cirrhosis type (HCC) Start Infusion 05/16/2024 2:51 PM EST 300 mg 180 mL/hr NSS infusion 500 mL, Intravenous, at 50 mL/hr, CONTINUOUS, Starting on Thu05/16/24 at 1530, Until Thu05/16/24 at 203Indications:Iron deficiency anemia due to chronic blood loss,Cirrhosis of liver without ascites, unspecified hepatic cirrhosis type (HCC) Start Infusion 05/16/2024 2:42 PM EST 500 mL 50 mL/hr sodium chloride 0.9 % flush central line 10 mL 10 mL, IV Push, PRN Other, IV Flush, Starting on Thu05/16/24 at 1427, Until Thu05/16/24 at 2032, For 24 hours, Do not flush if lock, PICC, or central line not in place; IV infusing or unable to flush.Indications:Iron deficiency anemia due to chronic blood loss,Cirrhosis of liver without ascites, unspecified hepatic cirrhosis type (HCC) Given 05/16/2024 4:23 PM EST 10 mL documented in this [...] of Attor narda? No Care Teams Back Tender Cylinder Relationship Specialty Start Date End Date Scott Weldon MD [address] [address] PCP - General Family Medicine 08/03/18 documented as of this encounter
--- OUTSIDE RECORDS SUMMARY | 2024-09-10 21:24 | External Medical Summary | Summary of Care ---
Author Name Unknown Organization [facility] Address [address] [place] [address] Phone [phone] Care Team Providers Care Director [employer] Name Role Phone Scott Fox MD Primary Care Provider + Reason for Visit * Reason Comments Dosage Adjustment Via Phone (anticoag Cl inic) Pain Encounter Details Date Type Department Care Team (Late st Contact Info) Description 06/16/2024 8:30 AM EST Telemedicine Pharmacy, [facility] [address] [facility] [place] [address] [facility] [address] [facility] [place] [address] Chronic pain syndrome* Allergies Active Allergy Reactions Criticality Noted Date Comments Naproxen Sodium Bleeding High 11/29/2013 Pollen 12/03/2022 Seasonal Food (See Comments) Anaphylaxis High 04/20/2019 Hot peppers (oils) Kiwi Extract Anaphylaxis High 04/20/2019 documented as of this encounter (statuses as of 06/16/2024) Medications insulin glargine (LANTUS SOLOSTAR) 100 UNIT/ML [...] suspected opioid overdose. Seek immediate medical attention. [email or web address] [email or web address]/watch?v=[email or web address] 1 Each 3 11/28/19 23 Active NovoLIN R ReliOn 100 UNIT/ML Injection Solution (insulin REGULAR human)Indications: Type 2 diabetes mellitus with hemoglobin A1c goal of less than 8.0% ([facility]),DM type 2, not at goal ([facility]) INJECT UP TO 200 UNITS SUBCUTANEOSULY [...] MG/DOSE)) Inject under the skin. Obtaining from [employer] Active Atorvastatin Calcium 40 MG Oral Tablet [...] as of this encounter (statuses as of 06/16/2024) Active Problems Problem Noted Date Diagnosed Date [...] 1y trigger shot/SI injection consent signed Family friend-Tnoy. Son Ricky-fall. Also son Hieu. Sim--2019 melanoma. [...] as of this encounter (statuses as of 06/16/2024) Resolved Problems Problem Noted Date Diagnosed Date [...] (09/03/2009): Per Obesity Taxonomy Coronary atherosclerosis of [place] coronary artery 09/15/2008 10/03/2008 Malaise and fatigue [...] as of this encounter (statuses as of 06/16/2024) Immunizations Name Administration Dates Next Due COVID-19 mRNA, LNP-s, No Pre serve, 2-Dose Series ([employer]) 11/08/2020,10/11/2020 HEP A - Hepatitis A (Adult > 18 yrs) 04/11/2011, 09/20/2010 Hepatitis B, 20+ yrs 07/05/2015 Pneumococcal Conjugate Vacci ne, 20-valent ([id number]) 03/13/2023 Pneumococcal Polysaccharide PPV23 (Pneumovax) 02/19/2018,03/09/2007 Seasonal [...] in this encounter Progress Notes * Radha Mckeon, [facility] - 06/16/2024 8:15 AM EST Images from the original note were not included. As per patient preference, connection with the patient via audio only occurred. The patient was informed this was a phone call only visit and was identified by name and date of . The patient agreed to participate. Total call duration was 15 minutes. Medication Therapy Disease Management Clinic - Chronic Pain Management Progress Note 06/16/2024 Carmen Tyson, identified by name and date of , is a 53 year old female being seen for chronic pain management/education. Patient presents to pain MTM clinic for return visit. Referring Physician: Dr. Fox Medication Agreement: on file Patient's Pharmacy: [facility] CHIEF COMPLAINT: RUQ Pain and back pain (radiating from shoulder blade down) Interval History: Notes feels very poorly Notes she has been dealing with back pain for a while Notes she was in the hospital twice in May Notes her SCS is still working alright Notes she feels her hip is out but plans to see a chiropractor Notes she feel tired and has no energy Notes she discussed with Dr fox and he recommended to reduce Baclofen and Lyrica to BID to helpwith fatigue Notes she has not noticed an improvement in fatigue but has increased pain Pain described as: aching and dull, radiating, [...] risk) Daily MME: ~ 30 PDMP Reviewed (06/16/24): apporpriate Urine Toxicology Screen: 03/11/22-appropriate Pill Count: N/a Functional Goal: QOL Current Pain Level (06/16/24): no change Pain Level (01/27/24): lower back issue, recent [...] and has been helpful Lyrica 100 mg BID Butrans 5 mcg/hr every week *lunesta, trazodone, escitalopram, hydroxyzine Creatinine Clearance: Serum creatinine: 1.5 mg/dL (H) 06/14/24 1420 Estimated creatinine clearance: 52.3 mL/min (A) Creatinine Results: Recent Labs Units 06/14/24 1420 05/16/24 1433 03/10/24 1408 CREATININE - [facility] mg/dL 1.5* 1.4* 1.3* Hepatic Function (ALT): Recent Labs Units 03/10/24 1408 02/11/24 1119 01/28/24 1232 ALT - [facility] U/L 11 22 11 Comprehensive Metabolic Panel Results: Results for orders placed or performed in visit on 03/10/24 COMPREHENSIVE METABOLIC PANEL Result Value Ref Range BUN 15 6 - 20 mg/dL CREATININE 1.3 (H) 0.5 - 1.0 mg/dL EGFR 51 (L) >=60 mL/min SODIUM 141 135 - 146 mmol/L POTASSIUM 4.5 3.5 - 5.1 mmol/L CHLORIDE 101 98 - 107 mmol/L CO2 30 22 - 32 mmol/L ANION GAP 10 7 - 15 mmol/L GLUCOSE 143 (H) 70 - 120 mg/dL Albumin 4.1 3.8 - 5.0 g/dL AST 41 (H) 10 - 35 U/L Alkaline Phosphatase 157 (H) 35 - 130 U/L Bilirubin, Total 0.5 <=1.2 mg/dL CALCIUM 9.2 8.4 - 10.2 mg/dL Protein 6.9 6.0 - 8.3 g/dL ALT 11 10 - 35 U/L ASSESSMENT: Patient aware MTM is a clinical pharmacist visit, with focus on medication options for current diagnoses referred by Primary Care Provider for review and optimization. Focus of this visit is Medication Optimization. Current concerns: continued fatigue with increased pain Adherence: Reviewed current regimen, patient is adherent to regimen. Treatment options: discussed continuing same medication at this time, baclofen and lyrica were reduced just last week to help reduce fatigue, patient denies improvement at this time but states in more pain Plan to see chiropractor to discuss hip alignment and possible adjustment Treatment concerns: continued pain and fatigue Education provided: discussed giving medication changes longer to see if improvement in fatigue occurs, patient agreeable I have evaluated the patient for the [...] and has been helpful Lyrica 100 mg BID Butrans 5 mcg/hr every week *lunesta, trazodone, [...] UP: Return to clinic in 12 weeks 09/15/2024 Radha Mckeon [facility] Clinical Pharmacist - Fashion Photographer Medication Therapy Management Clinic 06/16/2024, 8:15 AM documented in this encounter Plan of Treatment Upcoming Encounters Date Type Department Care Team (Late st Contact Info) Description 06/27/2024 1:00 PM EST Office Visit Pharmacy, [facility]esh Regan [address] [phone] [facility] [address] [place] [address] [place] [address] 06/30/2024 8:00 AM EST Office Visit [facility] [address] [address] Scott Fox MD [address] [place] [address] 06/30/2024 1:20 PM EST Office Visit Hepatology, [facility] [address] [facility] [place] [address] Jazzy Chu DO [address] [place] [address] 07/07/2024 9:30 AM EST Telemedicine Psychiatry [facility] [address] [place] [phone] Nhi Fritz CRNP [address] [place] [address] 07/08/2024 10:30 AM EST Telemedicine Gastroenterology, [facility] [place] [address] Adam Bradshaw CRNP [address] [place] [address] 07/11/2024 10:00 AM EST Hem/Onc Treatment Hematology/Oncology Treatment, [place] [address] [facility], [place] [phone] 07/20/2024 10:00 AM EST Imaging [facility] 2nd Floor Cardiology, [place] [address] [facility] [place] [phone] 09/14/2024 2:00 PM EDT Office Visit Hematology/Oncology [facility] [address] [facility] [place], [place] [phone] Sunil Bourgeois MD [address] [facility] [place] [address] 09/15/2024 9:30 AM EDT Telemedicine Pharmacy, [facility] [address] [facility] [place] [address] [facility] [address] [facility] [place] [address] 12/14/2024 12:20 PM EDT Office Visit [facility] [address] [place] [address] Scott Fox MD [address] [place] [address] 06/16/2025 11:40 AM EST Office Visit [facility] [address] [place] [phone] Scott Fox MD [address] [place] [address] Scheduled Procedures Name Priority Associated Diagnoses Date/Ti [...] encounter Medical Devices Implanted Type Area Technical Solutions Consultant Device Identifier Shelf Expiration Date Model / Serial / Lot Neurostimul Intellis Adaptiv - [id number] - [id number] Implanted:Qty: 1 on 08/22/2022 by Rafia Small MD at OR [facility] N/A: Spine Lumbar [employer] 06/21/2023 [id number] / [id number] / Description:battery Medtronic Lead Kit 60 Cm Implanted:Qty: 1 on 08/22/2022 by Rafia Small MD at OR [facility] N/A: Spine Lumbar 02/01/2026 [id number] / / [id number] Medtronic Lead Kit 60cm Implanted:Qty: 1 on 08/22/2022 by Rafia Small MD at OR [facility] N/A: Spine Lumbar 03/21/2026 [id number] / / [id number] Envelope Tyrx Med Antibacteril - [id number] Implanted:Qty: 1 on 08/22/2022 by Rafia Small MD at OR [facility] N/A: Spine Lumbar [employer] 03/10/2023 [id number] / / [id number] Hemostatic Clip Res 235cm - [id number] Implanted:Qty: 4 on 10/05/2023 by Aj Pruett, DO at [facility] 02/03/2026 [id number] / / Hemostatic Clip Res 235cm - [id number] Implanted:Qty: 1 on 10/05/2023 by Aj Pruett DO at [facility] : ENDOSCOPY 02/02/2026 [id number] / / documented as of this encounter Visit Diagnoses Diagnosis Chronic pain syndrome- Primary documented in this encounter Advance Directives [...] Power of Attor narda? No Care Teams Director [employer] Retail Relationship Specialty Start Date End Date Scott Fox MD [address] [place] [address] PCP - General Family Medicine 08/03/18 documented as of this encounter
--- OUTSIDE RECORDS SUMMARY | 2024-09-10 21:24 | External Medical Summary ---
Author Name Unknown Address Unknown Organization [id number][facility] [place] [address] [place] [address] Laboratory Report Ordering Provider Test Date Status LUIS ANTONIO LEIVA 06/14/2024 14:20:45 Final Observation Date Value Abnormality Reference (Units ) Status Ferritin 06/14/2024 14:20:45 239 Above high normal 13 -150 (ng/mL) Final Postmenopausal women have hi gher ferritin levels than pre-menopausal women. The above reference interval is based on pre-menopausal women. Performing Location [facility] [place] [address] [place] [address]
--- OUTSIDE RECORDS SUMMARY | 2024-09-10 21:24 | External Medical Summary ---
Author Name Unknown Address Unknown Organization K09:[facility] [place] [address] Laboratory Report Ordering Provider Test Date Status LUIS ANTONIO LEIVA 06/14/2024 14:20:45 Final Observation Date Value Abnormality Reference (Units ) Status SYNC LEUKOCYTES IN BLOOD BY AUTOMATED COUNT 06/14/2024 14:20:45 5.96 4.00-10.80 (K/uL) Final Segs 06/14/2024 14:20:45 67.3 40.0-75.0 (%) Final Lymphs % 06/14/2024 14:20:45 18.6 18.0-42.0 (%) Final Monos 06/14/2024 14:20:45 8.1 1.0-11.0 (%) Final Eosinophils 06/14/2024 14:20:45 5.5 0.0-6.0 (%) Final Basos 06/14/2024 14:20:45 0.5 0.0-2.0 (%) Final Absolute Segs 06/14/2024 14:20:45 4.01 1.80-7.70 (K/uL) Final Lymphs, absolute 06/14/2024 14:20:45 1.11 1.00-4.80 (K/ul) Final Monos, Abs 06/14/2024 14:20:45 0.48 0.00-1.10 (K/uL) Final Eos, Abs 06/14/2024 14:20:45 0.33 0.00-0.70 (K/uL) Final Basos, Abs 06/14/2024 14:20:45 0.03 0.00-0.20 (K/uL) Final Performing Location [facility] [place] [address]
--- OUTSIDE RECORDS SUMMARY | 2024-09-10 21:24 | External Medical Summary ---
Author Name Unknown Address Unknown Organization K09:[facility] [place] [address] Laboratory Report Ordering Provider Test Date Status LUIS ANTONIO LEIVA 06/14/2024 14:20:45 Final Observation Date Value Abnormality Reference (Units ) Status Nucleated erythrocytes/100 leukocytes [Ratio] in Blood by Automated count 06/14/2024 14:20:45 Final Elliptocytes [Presence] in Blood by Light microscopy 06/14/2024 14:20:45 Moderate Abnormal None Seen Final Performing Location [facility] [address] [place] [address]
--- OUTSIDE RECORDS SUMMARY | 2024-09-10 21:24 | External Medical Summary ---
Author Name Unknown Address Unknown Organization K09:[facility] [place] [address] Laboratory Report Ordering Provider Test Date Status JAN RIBEIRO 06/14/2024 14:20:45 Final Observation Date Value Abnormality Reference (Units ) Status BUN 06/14/2024 14:20:45 25 Above high normal 6-20 (mg/dL) Final Creatinine 06/14/2024 14:20:45 1.5 Above high normal 0.5-1.0 (mg/dL) Final Glomerular filtration rate/1.73 sq M.predicted [Volume Rate/Area] in Serum, Plasma or Blood by Creatinine-based formula (CKD-EPI) 06/14/2024 14:20:45 41 Below low normal >=60 (mL/min) Final eGFR is calculated based on the CKD-EPI 2020 equation. Sodium 06/14/2024 14:20:45 140 135-146 (m mol/L) Final Potassium 06/14/2024 14:20:45 4.2 3.5-5.1 (m mol/L) Final Cl 06/14/2024 14:20:45 101 98-107 (mm ol/L) Final CO2 06/14/2024 14:20:45 27 22-32 (mmo l/L) Final Anion gap 06/14/2024 14:20:45 12 7-15 (mmol /L) Final Glucose 06/14/2024 14:20:45 204 Above high normal 70 -120 (mg/dL) Final Calcium 06/14/2024 14:20:45 8.8 8.4-10.2 ( mg/dL) Final Performing Location [facility] [place] [address]
--- OUTSIDE RECORDS SUMMARY | 2024-09-10 21:24 | External Medical Summary ---
Author Name Unknown Address Unknown Organization K09:[facility] [place] [address] Laboratory Report Ordering Provider Test Date Status LUIS ANTONIO LEIVA 06/14/2024 14:20:45 Final Observation Date Value Abnormality Reference (Units ) Status WBC, Total 06/14/2024 14:20:45 5.96 4.00-10.8 0 (K/uL) Final RBC 06/14/2024 14:20:45 4.03 3.85-5.15 (M/uL) Final Hemoglobin 06/14/2024 14:20:45 11.2 Below low normal 12 .0-15.3 (g/dL) Final HCT 06/14/2024 14:20:45 35.1 Below low normal 36. 0-45.2 (%) Final MCV 06/14/2024 14:20:45 87.1 81.5-97.5 (fL) Final MCH 06/14/2024 14:20:45 27.8 27.0-34.0 (pg) Final MCHC 06/14/2024 14:20:45 31.9 32.0-36.0 (g/dL) Final RDW 06/14/2024 14:20:45 17.3 11.5-15.5 (%) Final Platelets 06/14/2024 14:20:45 71 Below low normal 140 -400 (K/uL) Final MPV 06/14/2024 14:20:45 10.4 6.6-11.1 ( fL) Final Performing Location [facility] [place] [address]
--- OUTSIDE RECORDS SUMMARY | 2024-09-10 21:24 | External Medical Summary | Summary of Care ---
Author Name Unknown Organization [facility] Address [address] [place] [facility] [place] [place] [address] Phone [phone] Care Team Providers Care Waiter Waitress Name Role Phone Scott Weldon MD Primary Care Provider + Reason for Visit * Reason Comments Infusion C1 D85 Venofer Encounter Details Date Type Department Care Team (Latest Contact Info) Description 06/14/2024 2:00 PM EST Hem/Onc Treatment Hematology/Oncology Treatment, [address] [phone] Nora, Chair 2 Hem On[address] [address] Iron deficiency anemia due to chronic blood [...] as of this encounter (statuses as of 06/14/2024) Medications insulin glargine (LANTUS SOLOSTAR) 100 UNIT/ML [...] 5 02/18/20 17 Active Insulin Infusion Pump (MINIMJeNu Biosciences 630G INSULIN PUMP) KITIndications:Typ e 2 diabetes [...] overdose. Seek immediate medical attention. [email or web address]?[email or web address] 1 Each 3 11/28/19 23 Active NovoLIN [...] MG/DOSE)) Inject under the skin. Obtaining from smartclip Active Atorvastatin Calcium 40 MG Oral Tablet [...] as of this encounter (statuses as of 06/14/2024) Active Problems Problem Noted Date Diagnosed Date [...] as of this encounter (statuses as of 06/14/2024) Resolved Problems Problem Noted Date Diagnosed Date [...] (09/03/2009): Per Obesity Taxonomy Coronary atherosclerosis of kickapoo [...] as of this encounter (statuses as of 06/14/2024) Immunizations Name Administration Dates Next Due COVID-19 mRNA, LNP-s, No Pre serve, 2-Dose Series (Pfizer) 11/08/2020,10/11/2020 HEP A - Hepatitis A (Adult > 18 yrs) 04/11/2011, 09/20/2010 Hepatitis B, 20+ yrs 07/05/2015 Pneumococcal Conjugate Vacci ne, 20-valent ([id number]) 03/13/2023 Pneumococcal Polysaccharide PPV23 (Pneumovax) 02/19/2018,03/09/2007 Seasonal [...] No 05/17/2024 Does the household have a [facility] source of income? (Household - for ages [...] Nursing Notes * Valorie Toro RN - 06/14/2024 4:20 PM EST Patient [...] Description 06/16/2024 8:30 AM EST Telemedicine Pharmacy, [facility] [address] [facility] [address] [facility] [address] 06/27/2024 1:00 PM EST Office Visit Pharmacy, [facility] [address] [place] [phone] [address] [address] 06/30/2024 8:00 AM EST Office Visit Family Practice [facility] [address] [facility] [place] [address] Scott Weldon MD [address] [facility] [place] [address] 06/30/2024 1:20 PM EST Office Visit Hepatology, [facility] [address] [facility] [place] [address] Jazzy Chu DO [address] [place], [place] [address] 07/07/2024 9:30 AM EST Telemedicine Psychiatry [facility] [address] [place] [phone] Nhi Fritz CRNP [address] [place] [address] 07/08/2024 10:30 AM EST Telemedicine Gastroenterology, [facility] [address] [place] [address] Adam Bradshaw CRNP [address] [place] [address] 07/11/2024 10:00 AM EST Hem/Onc Treatment Hematology/Oncology Treatment, [place] [address] [place] [phone] 07/20/2024 10:00 AM EST Imaging [facility] 2nd Floor Cardiology, [place] [address] [place] [phone] 09/14/2024 2:00 PM EDT Office Visit Hematology/Oncology [facility] [address] [place] [address] Sunil Bourgeois MD 200 [facility] [place] [address] 12/14/2024 12:20 PM EDT Office Visit Family Practice [facility] [address] [place] [address] [address] Scott Weldon MD [address] [place] [address] 06/16/2025 11:40 AM EST Office Visit Family Practice [facility] [address] [place] [address] Scott Weldon MD [address] [place] [address] Pending Results Name Type Priority Associated Diagnoses Date /Time FERRITIN Lab STAT Iron deficiency anemia, unspecified iron deficiency anemia type 06/14/2024 2:20 PM EST IRON SCREEN, INCLUDING TIBC Lab STAT Iron deficiency anemia, unspecified iron deficiency anemia type 06/14/2024 2:20 PM EST Scheduled Procedures Name Priority Associated [...] this encounter Medical Devices Implanted Type Area Liquefaction Plant Operator Device Identifier Shelf Expiration Date Model / Serial / Lot Neurostimul Intellis Adaptiv - [id number] - [id number] Implanted:Qty: 1 on 08/22/2022 by Rafia Small MD at OR [facility] N/A: Spine Lumbar [employer] 06/21/2023 [id number] / [id number] / Description:battery Medtronic Lead Kit 60 Cm Implanted:Qty: 1 on 08/22/2022 by Rafia Small MD at OR [facility] N/A: Spine Lumbar 02/01/2026 [id number] / / [id number] Medtronic Lead Kit 60cm Implanted:Qty: 1 on 08/22/2022 by Rafia Small MD at OR [facility] N/A: Spine Lumbar 03/21/2026 [id number] / / [id number] Envelope Tyrx Med Antibacteril - [id number] Implanted:Qty: 1 on 08/22/2022 by Rafia Small MD at OR [facility] N/A: Spine Lumbar [employer] 03/10/2023 [id number] / / [id number] Hemostatic Clip Res 235cm - [id number] Implanted:Qty: 4 on 10/05/2023 by Aj Pruett DO at ENDOSCOPY [facility] [employer] : ENDOSCOPY 02/03/2026 [id number] / / Hemostatic Clip Res 235cm - [id number] Implanted:Qty: 1 on 10/05/2023 by Aj Pruett DO at ENDOSCOPY [facility] : ENDOSCOPY 02/02/2026 [id number] / / documented as of this encounter Procedures Procedure Name Priority Date/Time Associated Diagnosis Comments DIFFERENTIAL, AUTOMATED STAT 06/14/2024 2:20 PM EST Iron deficiency anemia, unspecified iron deficiency anemia type BASIC METABOLIC PANEL Routine 06/14/2024 2:20 PM EST Type 2 diabetes mellitus with hemoglobin A1c goal of less than 8.0% (HCC) CBC STAT 06/14/2024 2:20 PM EST Iron deficiency anemia, unspecified iron deficiency anemia type CBC STAT 06/14/2024 2:20 PM EST Iron deficiency anemia, unspecified iron deficiency anemia type DIFFERENTIAL, TECHNOLOGIST REVIEW Routine 06/14/2024 2:20 PM EST Iron deficiency anemia, unspecified iron deficiency anemia type documented in this encounter Results * (ABNORMAL) DIFFERENTIAL, TECHNOLOGIST REVIEW (06/14/2024 2:20 PM EST) Pathologist [facility] 06/14/2024 2:50 PM EST [facility] 56-02 Elliptocytes Moderate(A ) None Seen 06/14/2024 2:50 PM EST [facility] 56-02 Blood Venous blood specimen / Unknown Central Line / Unknown 06/14/2024 2:20 PM EST 06/14/2024 2:33 PM EST us Sunil Bourgeois MD LAB BLOOD ORDERABLES Final Res ult [facility] 56-[address] [place] [address] * DIFFERENTIAL, AUTOMATED (06/14/2024 2:20 PM EST) Pathologist [facility] WBC 5.96 4.00 - 10.80 K/uL 06/14/2024 2:50 PM EST [facility] 56-02 Neutrophils % 67.3 40.0 - 75.0 % 06/14/2024 2:50 PM EST [facility] 56-02 Lymphocytes % 18.6 18.0 - 42.0 % 06/14/2024 2:50 PM EST [facility] 56-02 Monocytes % 8.1 1.0 - 11.0 % 06/14/2024 2:50 PM EST [facility] 56-02 Eosinophils % 5.5 0.0 - 6.0 % 06/14/2024 2:50 PM EST [facility] 56-02 Basophils % 0.5 0.0 - 2.0 % 06/14/2024 2:50 PM EST [facility] 56-02 Absolute Neutrophils 4.01 1.80 - 7.70 K/uL 06/14/2024 2:50 PM EST [facility] 56-02 Absolute Lymphocytes 1.11 1.00 - 4.80 K/ul 06/14/2024 2:50 PM EST [facility] 56-02 Absolute Monocytes 0.48 0.00 - 1.10 K/uL 06/14/2024 2:50 PM EST [facility] 56-02 Absolute Eosinophils 0.33 0.00 - 0.70 K/uL 06/14/2024 2:50 PM [facility] 56-02 Absolute Basophils 0.03 0.00 - 0.20 K/uL 06/14/2024 2:50 PM [facility] 56-02 Blood Venous blood specimen / Unknown Central Line / Unknown 06/14/2024 2:20 PM EST 06/14/2024 2:33 PM EST us Sunil Bourgeois MD LAB BLOOD ORDERABLES Final Res ult [facility] 56-[address] [place] [address] * (ABNORMAL) CBC (06/14/2024 2:20 PM EST) [facility] WBC 5.96 4.00 - 10.80 K/uL 06/14/2024 2:50 PM EST [facility] 56-02 RBC 4.03 3.85 - 5.15 M/uL 06/14/2024 2:50 PM EST [facility] 56 HGB 11.2(L) 12.0 - 15.3 g/dL 06/14/2024 2:50 PM EST [facility] 56 HCT 35.1(L) 36.0 - 45.2 % 06/14/2024 2:50 PM EST [facility] 56 MCV 87.1 81.5 - 97.5 fL 06/14/2024 2:50 PM EST [facility] 56 MCH 27.8 27.0 - 34.0 pg 06/14/2024 2:50 PM EST [facility] 56 MCHC 31.9 32.0 - 36.0 g/dL 06/14/2024 2:50 PM EST [facility] 56 RDW 17.3 11.5 - 15.5 % 06/14/2024 2:50 PM [facility] 56 PLT 71(L) 140 - 400 K/uL 06/14/2024 2:50 PM [facility] 56 MPV 10.4 6.6 - 11.1 fL 06/14/2024 2:50 PM [facility] 56 Blood Venous blood specimen / Unknown Central Line / Unknown 06/14/2024 2:20 PM EST 06/14/2024 2:33 PM EST us Sunil Bourgeois MD LAB BLOOD ORDERABLES Final Res ult [facility] [address] [place], [place] [phone] * (ABNORMAL) BASIC METABOLIC PANEL (06/14/2024 2:20 PM EST) BUN 25(H) 6 - 20 mg/dL 06/14/2024 2:58 PM [facility] 56 CREATININE 1.5(H) 0.5 - 1.0 mg/dL 06/14/2024 2:58 PM [facility] 56 EGFR 41(L) >=60 mL/min 06/14/2024 2:58 PM EST [facility] 56 Comment:eGFR is calculated b ased on the CKD-EPI 2020 equation. SODIUM 140 135 - 146 mmol/L 06/14/2024 2:58 PM EST [facility] 56 POTASSIUM 4.2 3.5 - 5.1 mmol/L 06/14/2024 2:58 PM EST [facility] 56- CHLORIDE 101 98 - 107 mmol/L 06/14/2024 2:58 PM EST [facility] 56- CO2 27 22 - 32 mmol/L 06/14/2024 2:58 PM EST [facility] 56 ANION GAP 12 7 - 15 mmol/L 06/14/2024 2:58 PM EST [facility] 56 GLUCOSE 204(H) 70 - 120 mg/dL 06/14/2024 2:58 PM EST [facility] 56 CALCIUM 8.8 8.4 - 10.2 mg/dL 06/14/2024 2:58 PM EST [facility] 56 Blood Venous blood specimen / Unknown Central Line / Unknown 06/14/2024 2:20 PM EST 06/14/2024 2:33 PM EST Scott Weldon MD LAB BLOOD ORDERABLES Fin al Result [facility] [address] [place] [address] documented in this encounter Visit [...] ONCE PRN Other, Hypersensitivity Reaction, Starting on Thu06/14/24 at 1406, Until Thu06/15/24 at 1405, For 24 hoursIndications:Iron deficiency anemia due to chronic blood loss,Cirrhosis of liver without ascites, unspecified hepatic cirrhosis type (HCC) EPINEPHrine 1 MG/ML inj 0.3 mg 0.3 mg, Intramuscular, ONCE PRN Other, Hypersensitivity Reaction or Anaphylaxis, Starting on Thu06/14/24 at 1406, Until Thu06/15/24 at 1405, For 24 hoursIndications:Iron deficiency anemia due to chronic blood loss,Cirrhosis of liver without ascites, unspecified hepatic cirrhosis type (HCC) hEParin 100 UNIT/ML Lock Flush inj 500 Units 500 Units (5 mL), IV Lock, PRN Other, IV Flush, Starting on Thu06/14/24 at 1406, Until Thu06/15/24 at 1405, For 24 hours, Do not flush if lock, PICC, or central line not in place; IV infusing or unable to flush.Indications:Iron deficiency anemia due to chronic blood loss,Cirrhosis of liver without ascites, unspecified hepatic cirrhosis type (HCC) Given 06/14/2024 4:11 PM EST 500 Units Hydrocortisone Sod Suc (PF) (Solu-Cortef) inj 100 mg 100 mg, IV Push, ONCE PRN Other, Hypersensitivity Reaction, Starting on Thu06/14/24 at 1406, Until Thu06/15/24 at 1405, For 24 hoursIndications:Iron deficiency anemia due to chronic blood loss,Cirrhosis of liver without ascites, unspecified hepatic cirrhosis type (HCC) NSS infusion 500 mL, Intravenous, at 50 mL/hr, CONTINUOUS, Starting on Thu06/14/24 at 1515, Until Thu06/15/24 at 0114Indications:Iron deficiency anemia due to chronic blood loss,Cirrhosis of liver without ascites, unspecified hepatic cirrhosis type (HCC) Start Infusion 06/14/2024 2:27 PM EST 500 mL 50 mL/hr oxygen GAS Inhalation, OXYGEN, First dose on Thu06/14/24 at 1600, Until Discontinued, Device/Managed by: Low [...] Flush, Starting on Thu06/14/24 at 1406, Until Thu06/15/24 at 1405, For 24 hours, Do not flush if lock, PICC, or central line not in place; IV infusing or unable to flush.Indications:Iron deficiency anemia due to chronic blood loss,Cirrhosis of liver without ascites, unspecified hepatic cirrhosis type (HCC) Given 06/14/2024 4:11 PM EST 10 mL Inactive Administered Medications [...] 2:31 PM EST 300 mg 180 mL/hr documented [...] Power of Attor narda? No Care Teams Waiter Waitress Relationship Specialty Start Date End Date Scott Weldon MD [address] [place] [address] PCP - General Family Medicine 08/03/18 documented as of this encounter
--- OUTSIDE RECORDS SUMMARY | 2024-09-10 21:25 | External Medical Summary | Summary of Care ---
Author Name Unknown Organization [facility] Address [address] [place] [address] Phone [phone] Care Team Providers Care Manufacturing Worker Name Role Phone Scott Weldon MD Primary Care Provider + Encounter Details Date Type Department Care Team (Late st Contact Info) Description 06/09/2024 Orders Only Family Practice [facility] [place] [address] Scott Weldon MD 132 [facility] [place] [address] Allergies Active Allergy Reactions Criticality Noted Date Comments Naproxen Sodium Bleeding High 11/29/2013 Pollen 12/03/2022 Seasonal Food (See Comments) Anaphylaxis High 04/20/2019 Hot peppers (oils) Kiwi Extract Anaphylaxis High 04/20/2019 documented as of this encounter (statuses as of 06/09/2024) Medications insulin glargine (LANTUS SOLOSTAR) 100 UNIT/ML [...] 5 02/18/20 17 Active Insulin Infusion Pump (MINIM[employer] 630G INSULIN PUMP) KITIndications:Typ e 2 diabetes mellitus with hemoglobin A1c goal of less than 8.0% ([facility]) Use as directed. 07/30/19 18 Active CPAP [...] suspected opioid overdose. Seek immediate medical attention. [email or web address] 1 Each 3 11/28/19 23 Active Loratadine [...] 2 4 11:35 AM EST 05/04/20 24 Active Albuterol Sulfate HFA 108 (90 Base) MCG/ACT Inhalation Aerosol Solution Inhale 2 puffs by mouth every 6 hours as needed for shortness of breath 20.1 g 4 6:37 PM EST 03/19/20 24 Active Baclofen 10 MG Oral Tablet (Lioresal)Indicati ons:Back spasm Take 1 Tablet by mouth in the morning and 1 Tablet at noon and 1 Tablet before bedtime. 90 Tablet 2 4 1:21 PM EST 05/16/20 24 Active Ozempic (2 MG/DOSE) 8 MG/3ML Subcutaneous Solution Pen-injector (Semaglutide (2 MG/DOSE)) Inject under the skin. Obtaining from [employer] Active Buprenorphine 5 MCG/HR Transdermal Patch Weekly (Butrans)Indicatio ns:Controlled substance agreement signed,Chronic bilateral low back pain with sciatica, sciatica laterality unspecified,Chroni c pain syndrome Place 1 Patch topically on the skin once a week. 4 Patch 06/03/20 Active documented as of this encounter (statuses as of 06/09/2024) Active Problems Problem Noted Date Diagnosed Date [...] as of this encounter (statuses as of 06/09/2024) Resolved Problems Problem Noted Date Diagnosed Date [...] (09/03/2009): Per Obesity Taxonomy Coronary atherosclerosis of pechanga coronary artery 09/15/2008 10/03/2008 Malaise and fatigue [...] as of this encounter (statuses as of 06/09/2024) Immunizations Name Administration Dates Next Due COVID-19 mRNA, LNP-s, No Pre serve, 2-Dose Series ([employer]) 11/08/2020,10/11/2020 HEP A - Hepatitis A (Adult > 18 yrs) 04/11/2011, 09/20/2010 Hepatitis B, 20+ yrs 07/05/2015 Pneumococcal Conjugate Vacci ne, 20-valent ([id number]) 03/13/2023 Pneumococcal Polysaccharide PPV23 (Pneumovax) 02/19/2018,03/09/2007 Seasonal [...] Care Team (Late st Contact Info) Description 06/13/2024 10:00 AM EST Hem/Onc Treatment Hematology/Oncology Treatment, [place] [address] [place] [address] Nora, Chair [address] Hem On[address] [address] 06/14/2024 9:15 AM EST Scheduled Telephone Care Coordination and Integration [address] [place] [address] Tania Dove, Community [facility] Yarn Preparation Supervisor [address] [place] [address] 06/16/2024 8:30 AM EST Telemedicine Pharmacy, [facility] 132 [facility] [place] [address] [facility] [address] [place] [address] 06/27/2024 1:00 PM EST [facility] [address] [facility] [place] [phone] Jayesh [address], [place] [address] 06/30/2024 8:00 AM EST Office Visit Family Practice [facility] [address] [place] [address] Scott Weldon MD [address] [place] [address] 06/30/2024 1:20 PM EST Office Visit Hepatology, [facility] [address] [place] [address] Jazzy Chu DO [address] [place] [address] 07/07/2024 9:30 AM EST Telemedicine Psychiatry [address] [phone] Nhi Fritz CRNP [address] [place] [address] 07/08/2024 10:30 AM EST Telemedicine Gastroenterology, [facility] [address] [place] [address] Adam Bradshaw CRNP [address] [place] [address] 07/20/2024 10:00 AM EST Imaging [facility] 2nd Floor Cardiology, [place] [address] [place] [phone] 09/14/2024 2:00 PM EDT Office Visit Hematology/Oncology [facility] 200 [facility] [place] [phone] Sunil Bourgeois MD 200 [facility] [place], [place] [address] 12/14/2024 12:20 PM EDT Office Visit [facility] [address] [place] [address] Scott Weldon MD [address] [place] [address] 06/16/2025 11:40 AM EST Office Visit [facility] [address] [place] [address] Scott Weldon MD [address] [place] [address] Scheduled Procedures Name Priority Associated Diagnoses Date/Ti [...] 05/16/2024, 06/0 12/2023, 07/23/2023, Additional history exists Albumin/Creatinine Ratio 05/16/2025 024, 07/23/2023, 04/06/2023, Additional history exists GFR 05/16/2025 05/16/2024, 08/2023, 02/11/2024, Additional history exists Depression Monitoring 05/17/2025 05/17/2024 Diabetic Eye Exam 06/09/2025 04/20/2024, , 04/20/2024, Additional history exists Pap Smear 09/07/2026 09/08/2023, [...] encounter Medical Devices Implanted Type Area Data Warehouse Specialist Device Identifier Shelf Expiration Date Model / Serial / Lot Neurostimul Intellis Adaptiv - [id number] - [id number] Implanted:Qty: 1 on 08/22/2022 by Rafia Small MD at OR [facility] N/A: Spine Lumbar [employer] 06/21/2023 [id number] / [id number] / Description:battery Medtronic Lead Kit 60 Cm Implanted:Qty: 1 on 08/22/2022 by Rafia Small MD at OR [facility] N/A: Spine Lumbar 02/01/2026 [id number] / / [id number] Medtronic Lead Kit 60cm Implanted:Qty: 1 on 08/22/2022 by Rafia Small MD at OR [facility] N/A: Spine Lumbar 03/21/2026 [id number] / / [id number] Envelope Tyrx Med Antibacteril - [id number] Implanted:Qty: 1 on 08/22/2022 by Rafia Small MD at OR [facility] N/A: Spine Lumbar [employer] 03/10/2023 [id number] / / [id number] Hemostatic Clip Res 235cm - [id number] Implanted:Qty: 4 on 10/05/2023 by Aj Pruett DO at ENDOSCOPY [facility] [employer] : ENDOSCOPY 02/03/2026 [id number] / / Hemostatic Clip Res 235cm - [id number] Implanted:Qty: 1 on 10/05/2023 by Aj Pruett DO at ENDOSCOPY [facility] [employer] : ENDOSCOPY 02/02/2026 [id number] / / documented as of this encounter Procedures Procedure Name Priority Date/Time Associated Diagnosis Comments DIABETIC EYE EXAM Routine 04/20/2024 documented in this encounter Results * DIABETIC EYE EXAM (04/20/2024) 04/20/2024 us History Per Patient OTHER Final Result OUTSIDE LAB (SEE SCANNED REPORT) documented in [...] Power of Attor narda? No Care Teams Manufacturing Worker Relationship Specialty Start Date End Date Scott Weldon MD [address] [place] [address] PCP - General Family Medicine 08/03/18 documented as of this encounter
--- OUTSIDE RECORDS SUMMARY | 2024-09-10 21:25 | External Medical Summary | Summary of Care ---
Author Name Unknown Organization [facility] Address [address] [place] [address] Phone [phone] Care Team Providers Care Certified Nuclear Medicine Technologist Name Role Phone Scott Weldon MD Primary Care Provider + Encounter Details Date Type Department Care Team (Late st Contact Info) Description 06/07/2024 11:00 AM EST Scheduled Telephone Care Coordination and Integration [address] [place], [place] [id number] Tania Dove, Community Health Loading Unit Operator [address] [place], [place] [id number] Allergies Active Allergy Reactions Criticality Noted Date Comments Naproxen Sodium Bleeding High 11/29/2013 Pollen 12/03/2022 Seasonal Food (See Comments) Anaphylaxis High 04/20/2019 Hot peppers (oils) Kiwi Extract Anaphylaxis High 04/20/2019 documented as of this encounter (statuses as of 06/07/2024) Medications insulin glargine (LANTUS SOLOSTAR) 100 UNIT/ML [...] 5 02/18/20 17 Active Insulin Infusion Pump (MINIMuberlife 630G INSULIN PUMP) KITIndications:Typ e 2 diabetes mellitus with hemoglobin A1c goal of less than 8.0% ([facility]) Use as directed. 07/30/19 18 [...] suspected opioid overdose. Seek immediate medical attention. [email or web address] 1 Each 3 11/28/19 23 Active Loratadine [...] hemoglobin A1c goal of less than 8.0% ([facility]),DM type 2, not at goal ([facility]) INJECT UP TO 200 UNITS [...] MG/DOSE)) Inject under the skin. Obtaining from [facility] Active Buprenorphine 5 MCG/HR Transdermal Patch Weekly (Butrans)Indicatio ns:Controlled substance agreement signed,Chronic bilateral low back pain with sciatica, sciatica laterality unspecified,Chroni c pain syndrome Place 1 Patch topically on the skin once a week. 4 Patch 06/03/20 Active documented as of this encounter (statuses as of 06/07/2024) Active Problems Problem Noted Date Diagnosed Date [...] as of this encounter (statuses as of 06/07/2024) Resolved Problems Problem Noted Date Diagnosed Date [...] (09/03/2009): Per Obesity Taxonomy Coronary atherosclerosis of [place] [...] as of this encounter (statuses as of 06/07/2024) Immunizations Name Administration Dates Next Due COVID-19 mRNA, LNP-s, No Pre serve, 2-Dose Series (SimpliVity) 11/08/2020,10/11/2020 HEP A - Hepatitis A (Adult > 18 yrs) 04/11/2011, 09/20/2010 Hepatitis B, 20+ yrs 07/05/2015 Pneumococcal Conjugate Vacci ne, 20-valent ([id number]) 03/13/2023 Pneumococcal Polysaccharide PPV23 (Pneumovax) 02/19/2018,03/09/2007 Seasonal [...] Progress Notes * Tania Dove, Community Health Loading Unit Operator - 06/07/2024 12:43 PM EST Telemedicine visit: No Community Health Loading Unit Operator (CARMEN) documentation: [facility] outbound call Pain is about a 6 or 7 Buprenorphine patch, Lyrica, Baclofen. Meds are helping some Today pain is getting more intense in back Abdominal area is sore Denies falls Patient is exhausted , feels she should be bouncing back more Patient has not taken blood pressure Blood sugar level is 110 today Denies lightheaded and dizziness Appetite is good Vomited on Thursday , patient went out to eat and feels she ate too much Patient has had diarrhea Denies cough , shortness of breath Reviewed red flags / patient voiced understanding Tania Dove [facility] Community Health Worker Call or Text- [phone] documented in this encounter Plan of Treatment Upcoming Encounters Date Type Department Care Team (Late st Contact Info) Description 06/13/2024 10:00 AM EST Hem/Onc Treatment Hematology/Oncology Treatment, [place] [address] [place], [place] [phone] Nora, Chair 1 Hem Onc Scenery [address] [place] [address] 06/14/2024 9:15 AM EST Scheduled Telephone Care Coordination and Integration [address] [place] [address] Tania Dove, Community Health Loading Unit Operator [address] [place] [address] 06/16/2024 8:30 AM EST Telemedicine Pharmacy, [facility] [address] [facility] [place] [address] [facility] [address] [place] [address] 06/27/2024 1:00 PM EST Office Visit Pharmacy, [address] [phone] [place] [address] [address] 06/30/2024 8:00 AM EST Office Visit Family Practice [facility] [address] [facility] [place] [address] Scott Weldon MD [address] [place] [address] 06/30/2024 1:20 PM EST Office Visit Hepatology, [facility] [address] [place] [address] Jazzy Chu DO [address] [place] [address] 07/07/2024 9:30 AM EST Telemedicine Psychiatry [facility] [address] [place] [phone] Nhi Fritz CRNP [address] [place] [address] 07/08/2024 10:30 AM EST Telemedicine Gastroenterology, [facility] [address] [facility] [place] [address] Adam Bradshaw CRNP [address] [place] [address] 07/20/2024 10:00 AM EST Imaging [facility] 2nd Floor Cardiology, [place] [address] [facility] [place] [phone] 09/14/2024 2:00 PM EDT Office Visit Hematology/Oncology [facility] [address] [place] [address] Sunil Bourgeois MD [address] [facility] [place] [address] 12/14/2024 12:20 PM EDT Office Visit [facility] [address] [place] [address] Scott Weldon MD [address] [place] [address] 06/16/2025 11:40 AM EST Office Visit [facility] [address] [place] [address] Scott Weldon MD [address] [place] [address] Scheduled Procedures Name Priority Associated Diagnoses Date/Ti [...] encounter Medical Devices Implanted Type Area Business Process Manager Device Identifier Shelf Expiration Date Model / Serial / Lot Neurostimul Intellis Adaptiv - [id number] - [id number] Implanted:Qty: 1 on 08/22/2022 by Rafia Small MD at OR [facility] N/A: Spine Lumbar [employer] 06/21/2023 [id number] / [id number] / Description:battery Medtronic Lead Kit 60 Cm Implanted:Qty: 1 on 08/22/2022 by Rafia Small MD at OR [facility] N/A: Spine Lumbar 02/01/2026 [id number] / / [id number] Medtronic Lead Kit 60cm Implanted:Qty: 1 on 08/22/2022 by Rafia Small MD at OR [facility] N/A: Spine Lumbar 03/21/2026 [id number] / / [id number] Envelope Tyrx Med Antibacteril - [id number] Implanted:Qty: 1 on 08/22/2022 by Rafia Small MD at OR [facility] N/A: Spine Lumbar [employer] 03/10/2023 [id number] / / [id number] Hemostatic Clip Res 235cm - [id number] Implanted:Qty: 4 on 10/05/2023 by Aj Pruett DO at ENDOSCOPY [facility] [employer] : ENDOSCOPY 02/03/2026 [id number] / / Hemostatic Clip Res 235cm - [id number] Implanted:Qty: 1 on 10/05/2023 by Aj Pruett DO at ENDOSCOPY [facility] : ENDOSCOPY 02/02/2026 [id number] / / documented as of this encounter [...] Power of Attor narda? No Care Teams Certified Nuclear Medicine Technologist Relationship Specialty Start Date End Date Scott Weldon MD [address] [facility] [place] [address] PCP - General Family Medicine 08/03/18 documented as of this encounter
--- OUTSIDE RECORDS SUMMARY | 2024-09-10 21:25 | External Medical Summary | Summary of Care ---
Author Name Unknown Organization [facility] Address [address] [facility] [place] [address] Phone [phone] Care Team Providers Care Damage Cutter Name Role Phone Scott Montoya MD Primary Care Provider + Reason for Visit * Reason Onset Date Comments Medication Refill 06/09/2024 Encounter Details Date Type Department Care Team (Late st Contact Info) Description 06/09/2024 Refill Family Practice [facility] [address] [place] [address] Scott Montoya MD [address] [place] [address] Back spasm; Vertigo; Allergic rhinitis Allergies Active Allergy Reactions Criticality Noted Date Comments Naproxen Sodium Bleeding High 11/29/2013 Pollen 12/03/2022 Seasonal Food (See Comments) Anaphylaxis High 04/20/2019 Hot peppers (oils) Kiwi Extract Anaphylaxis High 04/20/2019 documented as of this encounter (statuses as of 06/11/2024) Medications insulin glargine (LANTUS SOLOSTAR) 100 UNIT/ML [...] suspected opioid overdose. Seek immediate medical attention. [email or web address] 1 Each 3 11/28/19 23 Active NovoLIN [...] 4 4:07 PM EST 02/13/20 24 Active Eszopiclone 2 MG Oral Tablet (Lunesta) Take 1 Tablet by mouth at bedtime. Do not start before May 04, 2024. 30 Tablet 2 4 11:35 AM EST 05/04/20 24 Active Ozempic (2 MG/DOSE) 8 MG/3ML Subcutaneous Solution Pen-injector (Semaglutide (2 MG/DOSE)) Inject under the skin. Obtaining from [place] Active Baclofen 10 MG Oral Tablet (Lioresal)Indicat [...] allergies.. 90 Tablet 3 06/11/19 25 Active Loratadine 10 MG Oral Tablet (Claritin)Indicat ions:Allergic rhinitis TAKE 1 TABLET BY MOUTH IN THE MORNING FOR ALLERGIES. 90 Tablet 1 04/13/20 23 025 Disconti nued(Ref ill) Meclizine HCl 25 MG Oral Tablet (Antivert)Indicat ions:Vertigo Take 1 Tablet by mouth 3 times a day as needed for Dizziness. 30 Tablet 1 02/03/20 24 025 Disconti nued(Ref ill) Furosemide 40 MG Oral Tablet (Lasix) Take 1 Tablet by mouth every other day. 50 Tablet 1 4 8:54 AM EST 02/19/20 24 025 Disconti nued(Ref ill) Metoclopramide HCl 5 MG Oral Tablet (Reglan) Take 1 Tablet by mouth in the morning and 1 Tablet at noon and 1 Tablet in the evening. Take before meals. If needed for nausea. 300 Tablet 1 4 1:51 PM EDT 02/26/20 24 025 Disconti nued(Ref ill) Albuterol Sulfate [...] as of this encounter (statuses as of 06/11/2024) Active Problems Problem Noted Date Diagnosed Date [...] as of this encounter (statuses as of 06/11/2024) Resolved Problems Problem Noted Date Diagnosed Date [...] (09/03/2009): Per Obesity Taxonomy Coronary atherosclerosis of [place] coronary artery 09/15/2008 10/03/2008 Malaise and fatigue [...] as of this encounter (statuses as of 06/11/2024) Immunizations Name Administration Dates Next Due COVID-19 mRNA, LNP-s, No Pre serve, 2-Dose Series (AirSage) 11/08/2020,10/11/2020 HEP A - Hepatitis A (Adult > 18 yrs) 04/11/2011, 09/20/2010 Hepatitis B, 20+ yrs 07/05/2015 Pneumococcal Conjugate Vacci ne, 20-valent (Okndicv83) 03/13/2023 Pneumococcal Polysaccharide PPV23 (Pneumovax) 02/19/2018,03/09/2007 Seasonal [...] of Assessment Author No 04/20/2019 10:25 AM Tereas Gonzalez LPN * Because of a physical, [...] Telephone Encounter - Scott Montoya MD - 06/11/2024 3:58 PM ESTSigned Prescriptions: Disp Refills Baclofen 10 MG Oral Tablet (Lioresal) 270 Ta*1 Sig: Take 1 Tablet by mouth in the morning and 1 Tablet at noon and 1 Tablet before bedtime.Authorizing Provider: SCOTT MONTOYA Albuterol Sulfate HFA 108 (90 Base) MCG/AC*20.1 g 0 Sig: Inhale 2 puffs by mouth every 6 hours as needed for shortness of breathAuthorizing Provider: SCOTT MONTOYAOrderflash User: MISSY ROMERO Metoclopramide HCl 5 MG Oral Tablet (Darby*300 Ta*0 Sig: Take 1 Tablet by mouth in the morning and 1 Tablet at noon and 1 Tablet in the evening. Take before meals. If needed for nausea.Authorizing Provider: SCOTT MONTOYA User: MISSY ROMERO Furosemide 40 MG Oral Tablet (Lasix) 50 Tab*3 Sig: Take 1 Tablet by mouth every other day.Authorizing Provider: SCOTT MONTOYA User: MISSY ROMERO Meclizine HCl 25 MG Oral Tablet (Antivert) 30 Tab*0 Sig: Take 1 Tablet by mouth 3 times a day as needed for Dizziness.Authorizing Provider: SCOTT MONTOYA User: MISSY ROMERO Loratadine 10 MG Oral Tablet (Claritin) 90 Tab*3 Sig: Take 1 Tablet by mouth in the morning. For allergies..Authorizing Provider: SCOTT MONTOYA User: MISSY ROMERO * Telephone Encounter - Missy Romero [facility] - 06/11/2024 10:14 AM ESTPending Prescriptions: Disp Refills Baclofen 10 MG Oral Tablet (Lioresal) 270 Ta*1 Sig: Take 1 Tablet by mouth in the morning and 1 Tablet at noon and 1 Tablet before bedtime. Signed Prescriptions: Disp Refills Albuterol Sulfate HFA 108 (90 Base) MCG/AC*20.1 g 0 Sig: Inhale 2 puffs by mouth every 6 hours as needed for shortne ss of breath Authorizing Provider: SCOTT MONTOYA Ordering User: MISSY ROMERO Metoclopramide HCl 5 MG Oral Tablet (Darby*300 Ta*0 Sig: Take 1 Tablet by mouth in the morning and 1 Tablet at noon and 1 Tablet in the evening. Take before meals. If needed for nausea. Authorizing Provider: SCOTT MONTOYA Ordering User: MISSY ROMERO Furosemide 40 MG Oral Tablet ( Lasix) 50 Tab*3 Sig: Take 1 Tablet by mouth every other day. Authorizing Provider: SCOTT MONTOYA Ordering User: MISSY ROMERO Meclizine HCl 25 MG Oral Tablet (Antivert) 30 Tab*0 Sig: Take 1 Tablet by mouth 3 times a day as needed for Dizziness. Authorizing Provider: SCOTT MONTOYA Ordering User: MISSY ROMERO Loratadine 10 MG Oral Tablet (Claritin) 90 Tab*3 Sig: Take 1 Tablet by mouth in the morning. For allergies.. Authorizing Provider: SCOTT MONTOYA Ordering User: MISSY ROMERO * Telephone Encounter - Missy Romero RPh - 06/11/2024 10:14 AM EST [facility] is currently not authorized to approve refills for the pended medication(s) per refill protocol. Please approve if appropriate. Missy Walters PharmD Clinical Pharmacist Centralized Clinical Pharmacy Services ([facility]) [phone] 06/11/2024 10:14 AM * Telephone Encounter - Missy Romero RPh - 06/11/2024 10:13 AM EST Patient is switching pharmacies. Reissued balance of refills on current prescription(s) to [facility] Missy Walters PharmD Clinical Pharmacist Centralized Clinical Pharmacy Services ([facility]) [phone] 06/11/2024 10:13 AM * Telephone Encounter - Arianne Ruff CPhT - 06/09/2024 3:15 PM EST Did you pend patient's preferred pharmacy and medication before forwarding?yes Pharmacy: [facility]- [place] Pending Prescriptions: Disp Refills Baclofen 10 MG Oral Tablet (Lioresal) 90 Tab*2 Sig: Take 1 Tablet by mouth in the morning and 1 Tablet at noon and 1 Tablet before bedtime. Albuterol Sulfate HFA 108 (90 Base) MCG/A*20.1 g 0 Sig: Inhale 2 puffs by mouth every 6 hours as needed for shortness of breath Metoclopramide HCl 5 MG Oral Tablet (Regl*300 Ta*1 Sig: Take 1 Tablet by mouth in the morning and 1 Tablet at noon and 1 Tablet in the evening. Take before meals. If needed for nausea. Furosemide 40 MG Oral Tablet (Lasix) 50 Tab*1 Sig: Take 1 Tablet by mouth every other day. Meclizine HCl 25 MG Oral Tablet (Antivert)30 Tab*1 Sig: Take 1 Tablet by mouth 3 times a day as needed for Dizziness. Loratadine 10 MG Oral Tablet (Claritin) 90 Tab*1 Sig: Take 1 Tablet by mouth in the morning. For allergies.. Last Visit: 05/18/2024 (in office), 03/16/2024 (telemedicine) Next Visit: 06/30/2024 If no future appointments scheduled, and last appointment is greater than a year ago, please schedule patient for a follow-up appointment Last date the medication was ordered: 02/03/2024, 02/26/2024, 04/13/2023, 02/19/2024 Is this request for a controlled substance?No [...] 10:00 AM EST Hem/Onc Treatment Hematology/Oncology Treatment, [place] [address] [place] [phone] Nora, Chair 1 Hem Onc Scenery [address] [facility] [place] [address] 06/14/2024 9:15 AM EST Scheduled Telephone Care Coordination and Integration [address] [place] [address] Tania Dove, Community Health Road Grader [address] [place] [address] 06/16/2024 8:30 AM EST Telemedicine Pharmacy, [facility] [address] [place] [address] [facility] [address] [place] [address] 06/27/2024 1:00 PM EST Office Visit Pharmacy, [address] [phone] [address] [address] 06/30/2024 8:00 AM EST Office Visit Family Practice [facility] [address] [place] [address] Scott Montoya MD [address] [facility] [place] [address] 06/30/2024 1:20 PM EST Office Visit Hepatology, [facility] [address] [facility] [place] [address] Jazzy Chu DO [address] [facility] [address] 07/07/2024 9:30 AM EST Telemedicine Psychiatry [facility] [address] [place] [address] Nhi Fritz, LOCOMOTIVE ENGINEER DIESEL [address] [place] [address] 07/08/2024 10:30 AM EST Telemedicine Gastroenterology, [facility] [address] [place] [address] Adam Bradshaw CRNP [address] [place] [address] 07/11/2024 10:00 AM EST Hem/Onc Treatment Hematology/Oncology Treatment, [place] [address] [facility] [address] [place] [phone] 07/20/2024 10:00 AM EST Imaging [facility] 2nd Floor Cardiology, [place] [address] [facility] [place] [phone] 09/14/2024 2:00 PM EDT Office Visit Hematology/Oncology [facility] [address] [place] [phone] Sunil Bourgeois MD [address] [facility] [place] [address] 12/14/2024 12:20 PM EDT Office Visit Family Practice [facility] [address] [place] [address] Scott Montoya MD [address] [place] [address] 06/16/2025 11:40 AM EST Office Visit Family Practice [facility] [address] [place] [address] Scott Montoya MD 132 [facility] [place] [address] Scheduled Procedures Name Priority Associated Diagnoses Date/Ti [...] this encounter Medical Devices Implanted Type Area Monitoring Tech Device Identifier Shelf Expiration Date Model / Serial / Lot Neurostimul Intellis Adaptiv - [id number] - [id number] Implanted:Qty: 1 on 08/22/2022 by Rafia Small MD at OR [facility] N/A: Spine Lumbar [employer] 06/21/2023 [id number] / [id number] / Description:battery Medtronic Lead Kit 60 Cm Implanted:Qty: 1 on 08/22/2022 by Rafia Small MD at OR [facility] N/A: Spine Lumbar 02/01/2026 [id number] / / [id number] Medtronic Lead Kit 60cm Implanted:Qty: 1 on 08/22/2022 by Rafia Small MD at OR [facility] N/A: Spine Lumbar 03/21/2026 [id number] / / [id number] Envelope Tyrx Med Antibacteril - [id number] Implanted:Qty: 1 on 08/22/2022 by Rafia Small MD at OR [facility] N/A: Spine Lumbar [employer] 03/10/2023 [id number] / / [id number] Hemostatic Clip Res 235cm - [id number] Implanted:Qty: 4 on 10/05/2023 by Aj Pruett DO at ENDOSCOPY [facility] : ENDOSCOPY 02/03/2026 [id number] / / Hemostatic Clip Res 235cm - [id number] Implanted:Qty: 1 on 10/05/2023 by Aj Pruett DO at ENDOSCOPY [facility] : ENDOSCOPY 02/02/2026 [id number] / / documented as of this encounter Visit Diagnoses Diagnosis Back spasm Other symptoms referable to back Vertigo Dizziness and giddiness Allergic rhinitis Allergic rhinitis, cause unspecified documented in this encounter Advance Directives * [...] Power of Attor narda? No Care Teams Damage Cutter Relationship Specialty Start Date End Date Scott Montoya MD [address] [place] [address] PCP - General Family Medicine 08/03/18 documented as of this encounter
--- OUTSIDE RECORDS SUMMARY | 2024-09-10 21:25 | External Medical Summary | Summary of Care ---
Author Name Unknown Organization [facility] Address [address] [place] [address] Phone [phone] Care Team Providers Care Gas Prover Name Role Phone Scott Weldon MD Primary Care Provider + Encounter Details Date Type Department Care Team (Late st Contact Info) Description 06/07/2024 11:00 AM EST Scheduled Telephone Care Coordination and Integration [address] [place], [place] [id number] Tania Dove, Community Health Human Resource Professional [address] [place], [place] [phone] Allergies Active Allergy Reactions Criticality Noted Date [...] 5 02/18/20 17 Active Insulin Infusion Pump (MINIMConyac 630G INSULIN PUMP) KITIndications:Typ e 2 diabetes mellitus with hemoglobin A1c goal of less than 8.0% ([facility]) Use as directed. 07/30/19 18 [...] suspected opioid overdose. Seek immediate medical attention. [email or web address]://[email or web address] Textbook Time.com/watch?v=v2 [email or web address] 1 Each 3 11/28/19 23 Active Loratadine [...] MG/DOSE)) Inject under the skin. Obtaining from [employer] Active Buprenorphine 5 MCG/HR Transdermal Patch Weekly [...] (09/03/2009): Per Obesity Taxonomy Coronary atherosclerosis of [place] [...] mRNA, LNP-s, No Pre serve, 2-Dose Series (Refresh.io) 11/08/2020,10/11/2020 HEP A - Hepatitis A (Adult > 18 yrs) 04/11/2011, 09/20/2010 Hepatitis B, 20+ yrs 07/05/2015 Pneumococcal Conjugate Vacci ne, 20-valent (Evgrxci21) 03/13/2023 Pneumococcal Polysaccharide PPV23 (Pneumovax) 02/19/2018,03/09/2007 Seasonal [...] Progress Notes * Tania Dove, Community Health Human Resource Professional - 06/07/2024 12:43 PM EST Telemedicine visit: No Community Health Human Resource Professional (CARMEN) documentation: CHW outbound call Pain is [...] flags / patient voiced understanding Tania Dove [facility] Community Health Worker Call or Text- [phone] documented in this encounter Plan of Treatment Upcoming Encounters Date Type Department Care Team (Late st Contact Info) Description 06/13/2024 10:00 AM EST Hem/Onc Treatment Hematology/Oncology Treatment, [place] [address] [place], [place] [phone] Nora, Chair 1 Hem Onc Scenery [address] [place] [address] 06/14/2024 9:15 AM EST Scheduled Telephone Care Coordination and Integration [address] [place] [address] Tania Dove, Community Health Human Resource Professional [address] [place] [address] 06/16/2024 8:30 AM EST Telemedicine Pharmacy, [facility] [address] [facility] [place] [address] [facility] [address] [place] [address] 06/27/2024 1:00 PM EST Office Visit Pharmacy, [address] [phone] [place] [address] [address] 06/30/2024 8:00 AM EST Office Visit Family Practice [facility] [address] [facility] [place] [address] Scott Weldon MD [address] [place] [address] 06/30/2024 1:20 PM EST Office Visit Hepatology, [facility] [address] [place] [address] Jazzy Chu DO [address] [place] [address] 07/07/2024 9:30 AM EST Telemedicine Psychiatry [facility] [address] [place] [phone] Nhi Fritz CRNP [address] [place] [address] 07/08/2024 10:30 AM EST Telemedicine Gastroenterology, [facility] [address] [facility] [place] [address] Adam Bradshaw CRNP [address] [place] [address] 07/20/2024 10:00 AM EST Imaging [facility] 2nd Floor Cardiology, [place] [address] [facility] [place] [phone] 09/14/2024 2:00 PM EDT Office Visit Hematology/Oncology [facility] [address] [facility] [place] [phone] Sunil Bourgeois MD [address] [facility] [place] [address] 12/14/2024 12:20 PM EDT Office Visit [facility] [address] [place] [address] Scott Weldon MD [address] [place] [address] 06/16/2025 11:40 AM EST Office Visit [facility] [address] [place] [address] Scott Weldon MD [address] [place] [address] Scheduled Procedures Name Priority Associated Diagnoses Date/Ti [...] this encounter Medical Devices Implanted Type Area Cardiac Cath Tech Device Identifier Shelf Expiration Date Model / Serial / Lot Neurostimul Intellis Adaptiv - [id number] - [id number] Implanted:Qty: 1 on 08/22/2022 by Rafia Small MD at OR [facility] N/A: Spine Lumbar [employer] 06/21/2023 [id number] / [id number] / Description:battery Medtronic Lead Kit 60 Cm Implanted:Qty: 1 on 08/22/2022 by Rafia Small MD at OR [facility] N/A: Spine Lumbar 02/01/2026 [id number] / / [id number] Medtronic Lead Kit 60cm Implanted:Qty: 1 on 08/22/2022 by Rafia Small MD at OR [facility] N/A: Spine Lumbar 03/21/2026 [id number] / / [id number] Envelope Tyrx Med Antibacteril - [id number] Implanted:Qty: 1 on 08/22/2022 by Rafia Small MD at OR [facility] N/A: Spine Lumbar [employer] 03/10/2023 [id number] / / [id number] Hemostatic Clip Res 235cm - [id number] Implanted:Qty: 4 on 10/05/2023 by Aj Pruett DO at ENDOSCOPY [facility] [employer] : ENDOSCOPY 02/03/2026 [id number] / / Hemostatic Clip Res 235cm - [id number] Implanted:Qty: 1 on 10/05/2023 by Aj Pruett DO at ENDOSCOPY [facility] : ENDOSCOPY 02/02/2026 [id number] / / documented as of this encounter [...] Power of Attor narda? No Care Teams Gas Prover Relationship Specialty Start Date End Date Scott Weldon MD [address] [facility] [place] [address] PCP - General Family Medicine 08/03/18 documented as of this encounter
--- OUTSIDE RECORDS SUMMARY | 2024-09-10 21:25 | External Medical Summary | Summary of Care ---
Author Name Unknown Organization [facility] Address [address] [facility] [place] [address] Phone [phone] Care Team Providers Care Hard Tile Setter Name Role Phone Scott Weldon MD Primary Care Provider + Reason for Visit * Reason Comments eRx-Medication Refill Encounter Details Date Type Department Care Team (Late st Contact Info) Description 06/03/2024 Refill Family Practice [facility] [address] [facility] [place] [address] Scott Weldon MD [address] [facility] [place] [address] Allergies Active Allergy Reactions Criticality Noted Date Comments Naproxen Sodium Bleeding High 11/29/2013 Pollen 12/03/2022 Seasonal Food (See Comments) Anaphylaxis High 04/20/2019 Hot peppers (oils) Kiwi Extract Anaphylaxis High 04/20/2019 documented as of this encounter (statuses as of 06/04/2024) Medications insulin glargine (LANTUS SOLOSTAR) 100 UNIT/ML [...] 5 02/18/20 17 Active Insulin Infusion Pump (MINIMMarketMeSuite 630G INSULIN PUMP) KITIndications:Typ e 2 diabetes mellitus with hemoglobin A1c goal of less than 8.0% ([facility]) Use as directed. 07/30/19 18 Active [...] suspected opioid overdose. Seek immediate medical attention. https://www.Ignite100u ACHICA.com/watch?v=v2 4yBde7WkC 1 Each 3 11/28/19 23 Active Loratadine [...] MG/DOSE)) Inject under the skin. Obtaining from [employer] Active Buprenorphine 5 MCG/HR Transdermal Patch Weekly (Butrans)Indicatio ns:Controlled substance agreement signed,Chronic bilateral low back pain with sciatica, sciatica laterality unspecified,Chroni c pain syndrome Place 1 Patch topically on the skin once a week. 4 Patch 06/03/20 Active documented as of this encounter (statuses as of 06/04/2024) Active Problems Problem Noted Date Diagnosed Date [...] as of this encounter (statuses as of 06/04/2024) Resolved Problems Problem Noted Date Diagnosed Date [...] (09/03/2009): Per Obesity Taxonomy Coronary atherosclerosis of [place] coronary artery 09/15/2008 10/03/2008 Malaise and [...] as of this encounter (statuses as of 06/04/2024) Immunizations Name Administration Dates Next Due COVID-19 mRNA, LNP-s, No Pre serve, 2-Dose Series (Songbird) 11/08/2020,10/11/2020 HEP A - Hepatitis A (Adult > 18 yrs) 04/11/2011, 09/20/2010 Hepatitis B, 20+ yrs 07/05/2015 Pneumococcal Conjugate Vacci ne, 20-valent (Bgeluji67) 03/13/2023 Pneumococcal Polysaccharide PPV23 (Pneumovax) 02/19/2018,03/09/2007 Seasonal [...] Notes * Telephone Encounter - Pricila Pineda RPh - 06/04/2024 8:31 PM EST Refused Prescriptions: Disp Refills Atenolol 100 MG Oral Tablet (Tenormin) 180 Ta*3 Sig: TAKE 1 TABLET BY MOUTH TWICE A DAYRefused By: PRICILA PINEDA for Refusal: Course of treatment compl ete documented in this encounter Plan of Treatment Upcoming Encounters Date Type Department Care Team (Late st Contact Info) Description 06/07/2024 11:00 AM EST Scheduled Telephone Care Coordination and Integration [address] [place] [address] Tania Dove, Community Health Signals Officer [address] [place] [address] 06/13/2024 10:00 AM EST Hem/Onc Treatment Hematology/Oncology Treatment, [place] [address] [place] [phone] Nora, Chair 1 Hem Onc Scenery [address] [place] [address] 06/14/2024 9:15 AM EST Scheduled Telephone Care Coordination and Integration [address] [place] [address] Tania Dove, Community Health Signals Officer [address] [place] [address] 06/16/2024 8:30 AM EST Telemedicine Pharmacy, [facility] [address] [facility] [place] [address] [facility] [address] [facility] [place] [address] 06/27/2024 1:00 PM EST Office Visit Pharmacy, [address] [phone] [address] [address] 06/30/2024 8:00 AM EST Office Visit Family Practice [facility] [address] [facility] [place] [address] Scott Weldon MD [address] [facility] [place] [address] 06/30/2024 1:20 PM EST Office Visit Hepatology, [facility] [address] [facility] [place] [address] Jazzy Chu DO [address] [place] [address] 07/07/2024 9:30 AM EST Telemedicine Psychiatry [facility] [address] [place] [address] Nhi Fritz CRNP [address] [place] [address] 07/08/2024 10:30 AM EST Telemedicine Gastroenterology, [facility] [address] [place] [address] Adam Bradshaw CRNP [address] [place] [address] 09/14/2024 2:00 PM EDT Office Visit Hematology/Oncology [facility] [address] [facility] [place] [address] Sunil Bourgeois MD [address] [facility], [place] [address] 12/14/2024 12:20 PM EDT Office Visit [facility] [address] [place] [address] Scott Weldon MD [address] [place] [address] 06/16/2025 11:40 AM EST Office Visit [facility] [address] [place] [address] Scott Weldon MD [address] [place] [address] Scheduled Procedures Name Priority Associated Diagnoses Date/Ti [...] this encounter Medical Devices Implanted Type Area Slot Attendant Device Identifier Shelf Expiration Date Model / Serial / Lot Neurostimul Intellis Adaptiv - [id number] - [id number] Implanted:Qty: 1 on 08/22/2022 by Rafia Small MD at OR [facility] N/A: Spine Lumbar [employer] 06/21/2023 [id number] / [id number] / Description:battery Medtronic Lead Kit 60 Cm Implanted:Qty: 1 on 08/22/2022 by Rafia Small MD at OR [facility] N/A: Spine Lumbar 02/01/2026 [id number] / / [id number] Medtronic Lead Kit 60cm Implanted:Qty: 1 on 08/22/2022 by Rafia Small MD at OR [facility] N/A: Spine Lumbar 03/21/2026 [id number] / / [id number] Envelope Tyrx Med Antibacteril - [id number] Implanted:Qty: 1 on 08/22/2022 by Rfaia Small MD at OR [facility] N/A: Spine Lumbar [employer] 03/10/2023 [id number] / / [id number] Hemostatic Clip Res 235cm - [id number] Implanted:Qty: 4 on 10/05/2023 by Aj Pruett DO at ENDOSCOPY [facility] [employer] : ENDOSCOPY 02/03/2026 [id number] / / Hemostatic Clip Res 235cm - [id number] Implanted:Qty: 1 on 10/05/2023 by Aj Pruett DO at ENDOSCOPY [facility] [employer] : ENDOSCOPY 02/02/2026 [id number] / / documented as of this encounter [...] Power of Attor narda? No Care Teams Hard Tile Setter Relationship Specialty Start Date End Date Scott Weldon MD [address] [facility] [place] [address] PCP - General Family Medicine 08/03/18 documented as of this encounter
--- OUTSIDE RECORDS SUMMARY | 2024-09-10 21:25 | External Medical Summary | Summary of Care ---
Author Name Unknown Organization [facility] Address [address] [facility] [place] [address] Phone [phone] Care Team Providers Care Regional Education Coordinator Name Role Phone Scott Weldon MD Primary Care Provider + Reason for Visit * Reason Comments Hospital Follow-Up Encounter Details Date Type Department Care Team (Late st Contact Info) Description 05/18/2024 2:40 PM EST Office Visit Family Practice [facility] [address] [facility] [place] [address] Scott Weldon MD [address] [place] [address] Elevated lipase* Allergies Active Allergy Reactions Criticality Noted Date [...] 8.0% ([facility]) Use as directed. 07/30/19 18 [...] suspected opioid overdose. Seek immediate medical attention. [email or web address] 1 Each 3 11/28/19 23 Active Loratadine [...] 4 1:21 PM EST 05/16/20 24 Active ONETOUCH ULTRASOFT LANCETS MISCIndications:D M type 2, not at goal (HCC) check FS 6 times daily 4 Box 5 06/22/19 15 024 Disconti nued(Med ication List Clean Up) Atenolol 25 MG Oral Tablet (Tenormin) Take 1 Tablet by mouth in the morning and 1 Tablet before bedtime. 024 Disconti nued(Med ication List Clean Up) hydrOXYzine HCl 25 MG Oral Tablet TAKE 1 TABLET BY MOUTH DURING DAY EVERY 4-6 HOURS NEEDED FOR ANXIETY 450 Tablet 1 4 1:53 PM EST 04/14/20 24 024 Disconti nued(Med ication List Clean Up) Buprenorphine 5 MCG/HR Transdermal Patch Weekly (Butrans)Indicati ons:Controlled substance agreement signed,Chronic bilateral low back pain with sciatica, sciatica laterality unspecified,Chron ic pain syndrome Place 1 Patch topically on the skin once a week. 4 Patch 05/04/20 24 024 Disconti nued(Ref ill) Ozempic (2 MG/DOSE) 8 MG/3ML Subcutaneous Solution Pen-injector (Semaglutide (2 MG/DOSE)) Inject under the skin. Obtaining from [facility] PAP 024 Disconti nued(Ref ill) documented as of [...] 07/27/2012 09/15/2014 Stroke 06/08/2012 02/05/2024 Overview (02/05/2024): 9/13/23 Hem/Onc note "-history of CV stroke, left [...] (09/03/2009): Per Obesity Taxonomy Coronary atherosclerosis of hopi coronary artery 09/15/2008 10/03/2008 Malaise and fatigue [...] mRNA, LNP-s, No Pre serve, 2-Dose Series ([employer]) 11/08/2020,10/11/2020 HEP A - Hepatitis A (Adult > 18 yrs) 04/11/2011, 09/20/2010 Hepatitis B, 20+ yrs 07/05/2015 Pneumococcal Conjugate Vacci ne, 20-valent (Zyppiga23) 03/13/2023 Pneumococcal Polysaccharide PPV23 (Pneumovax) 02/19/2018,03/09/2007 Seasonal [...] Sign Reading Time Taken Comments Blood Pressure 90/60 05/18/2024 2:48 PM EST Pulse 87 05/18/2024 2:48 PM EST Temperature - - Respiratory Rate - - Oxygen Saturation 98% 05/18/2024 2:48 PM EST Inhaled Oxygen Concentration - - Weight 104.8 kg (231 lb) 05/18/2024 2:48 PM EST Height - - Body Mass [...] 04/20/2019 10:25 AM Tereas Gonzalez LPN * Do you have serious [...] Progress Notes * Scott Weldon MD - 06/07/2024 10:50 AM EST Images from the original note were not included. Subjective Carmen Tyson is a 53 year old female presenting for Hospital Follow-Up History of Present Illness The patient, , presents with multiple complaints. Hosp f/u [facility] 05/12-05/13/24. Hadn't been feeling well for a week. The chief complaint is low blood pressure, which she had SBP 80s at nephrology office, sent to ER--has led to dizziness and lack of energy. At prior admission moon and losartan were stopped at that time. The patient reports stopping blood pressure medications due to these symptoms. The patient also admits to continuing Ozempic, a medication for diabetes, despite previously being instructed to discontinue it. The patient has also self-initiated dicyclomine, which has helped with gas and burping. In addition to these symptoms, the patient reports persistent back pain, particularly in the lower spine and between the shoulders. The patient has a neurostimulator implanted for nerve pain, but this does not alleviate the back pain. The patient also reports feeling frustrated and has had a recenthospital stay that was distressing due to issues with medication management. The patient has a history of bipolar disorder and is adamant about maintaining her current regimen for this condition. During the recent hospital stay, the patient reports that her bipolar medications were stopped, leading to significant discomfort including a severe headache. The patient also reports being questioned about swallowing foreign objects during the hospital stay, which was confusing and distressing. The patient also has a history of liver cirrhosis and has clips in place from a previous surgical procedure. The patient reports ongoing nausea--this was one of the main reasons to having been recommended to stop Ozempic. Metformin and Jardiance were also stopped. Her goal is to get off pump and do Omnipod. Objective Blood pressure 90/60, pulse 87, weight 231 lb (104.8 kg), SpO2 98%, not currently . Physical Exam Gen NAD NECK: Glands normal CARDIOVASCULAR: Heart sounds normal MUSCULOSKELETAL: Paraspinal muscle tenderness and tightness in lower back and between shoulders Abd -RUQ tender no rebound non distended. Extrem non pitting Results LABS Lipase: [address] scan abdomen: Spleen slightly enlarged, liver cirrhosis, no new findings CT scan chest: No infection, no malignancy X-ray lumbar spine: Loss of disk space at L5-S1, neurostimulator present, no fractures (01/28/2024) MRI lumbar and thoracic spine: L4-L5 disc pinching right nerve root, L5-S1 disc pinching left S1 nerve root, central canal stenosis, thoracic spine with arthritis but no major disc changes (04/25/2022) Assessment and Plan Assessment & Plan Chronic Pain and Muscle Spasms Persistent pain in the lower back and between the shoulders. Muscle spasms noted on examination. Currently on Baclofen, Butrans, and Lyrica for pain management. -Consider restarting trigger point injections due to muscle spasms. -Continue Baclofen, Butrans, and Lyrica. F/u pain MTM Hypotension and Fatigue Patient reports feeling dizzy, lightheaded, and fatigued. Multiple medications could be contributing to these symptoms. -Discontinue Hydroxyzine. -If symptoms persist, reduce Lyrica from three times a day to twice a day. Depression and Anxiety Recent hospitalization led to missed doses of bipolar medications, resulting in increased anxiety and panic attacks. Currently on Lunesta and Trazodone for sleep. -Continue current psychiatric medications. -Consider reducing Lunesta if hypotension and fatigue persist after other medication adjustments. Diabetes Management Patient is on Ozempic, but running out. Previous concerns about pancreatitis due to Ozempic. -Check lipase levels using existing specimen to assess pancreas function. -If pancreas function is normal, can consider continue Ozempic as patient highly motivated to stay on it for her DM and obesity. -If pancreas function is abnormal, consider discontinuing Ozempic. Gastrointestinal Symptoms Patient reports improvement in gas and burping since restarting Dicyclomine. -Continue Dicyclomine. Follow-up Plans -Reschedule HIDA scan. -Follow-up appointments with primary care, psychiatry, liver specialist, and diabetes management team. Elevated lipase (Primary) - LIPASE; Future; Expected date: 05/18/2024 Wrap-Up Follow Up: Return in about 1 year (around 05/18/2025) for Return with Physician. | For: Return withPhysician | Check-out note: Keep all my appts. Add 1y. Reschedule HIDA scan. Time: I spent a total of 40-54 minutes (exact time 42 mins) on the date of service in preparation, delivery, and documentation of the care provided to Carmen Tyson excluding any time spent in the performance of separately billed services. Text in this note was generated using an [employer] documentation service. I discussed the use of a device to record and summarize our discussion today. All persons present during the encounter consented to its use. documented in this encounter Plan of Treatment Upcoming Encounters Date Type Department Care Team (Late st Contact Info) Description 06/13/2024 10:00 AM EST Hem/Onc Treatment Hematology/Oncology Treatment, [address] [phone] Nora, Chair 1 Hem Onc [address] [address] 06/14/2024 9:15 AM EST Scheduled Telephone Care Coordination and Integration [address] [place] [address] Tania Dove, Community Health Experimental Aircraft Mechanic [address] [facility] [place] [address] 06/16/2024 8:30 AM EST Telemedicine Pharmacy, Sada Rose, [place] [address] [facility] [place] [address] [facility] [address] [facility] [place] [address] 06/27/2024 1:00 PM EST Office Visit Pharmacy, [address] [place] [phone] [facility] [address] [facility] [address] 06/30/2024 8:00 AM EST Office Visit Family Practice [facility] [address] [place] [address] Scott Weldon MD [address] [place] [address] 06/30/2024 1:20 PM EST Office Visit Hepatology, [facility] [address] [facility] [place] [address] Jazzy Chu DO [address] [place] [address] 07/07/2024 9:30 AM EST Telemedicine Psychiatry [address] [phone] Nhi Fritz CRNP [address] [place] [address] 07/08/2024 10:30 AM EST Telemedicine Gastroenterology, [facility] [address] [facility] [place] [address] Adam Bradshaw CRNP [address] [place] [address] 07/20/2024 10:00 AM EST Imaging [facility] 2nd Floor Cardiology, [place] [address] [place] [phone] 09/14/2024 2:00 PM EDT Office Visit Hematology/Oncology Roney Melendez [place] [address] [place] [phone] Sunil Bourgeois MD [address] [place] [address] 12/14/2024 12:20 PM EDT Office Visit [facility] [address] [place] [address] Scott Weldon MD [address] [place] [address] 06/16/2025 11:40 AM EST Office Visit [facility] [address] [place] [address] Scott Weldon MD [address] [place] [address] Scheduled Procedures Name Priority Associated Diagnoses Date/Ti [...] this encounter Medical Devices Implanted Type Area Court Deputy Device Identifier Shelf Expiration Date Model / Serial / Lot Neurostimul Intellis Adaptiv - [id number] - [id number] Implanted:Qty: 1 on 08/22/2022 by Rafia Small MD at [facility] N/A: Spine Lumbar [employer] 06/21/2023 [id number] / [id number] / Description:battery Medtronic Lead Kit 60 Cm Implanted:Qty: 1 on 08/22/2022 by Rafia Samll MD at [facility] N/A: Spine Lumbar 02/01/2026 [id number] / / [id number] Medtronic Lead Kit 60cm Implanted:Qty: 1 on 08/22/2022 by Rafia Small MD at [facility] N/A: Spine Lumbar 03/21/2026 [id number] / / [id number] Envelope Tyrx Med Antibacteril - [id number] Implanted:Qty: 1 on 08/22/2022 by Rafia Small MD at [facility] N/A: Spine Lumbar [employer] 03/10/2023 [id number] / / [id number] Hemostatic Clip Res 235cm - [id number] Implanted:Qty: 4 on 10/05/2023 by Aj Pruett DO at [facility] [employer] : ENDOSCOPY 02/03/2026 [id number] / / Hemostatic Clip Res 235cm - [id number] Implanted:Qty: 1 on 10/05/2023 by Aj Pruett DO at [facility] [employer] : ENDOSCOPY 02/02/2026 [id number] / / documented as of this encounter Results * (ABNORMAL) LIPASE (05/16/2024 2:33 PM EST) Lipase 69(H) 13 - 60 U/L 05/18/2024 4:54 PM EST LABORATORY [facility] Blood Venous blood specimen / Unknown Venipuncture / Unknown 05/16/2024 2:33 PM EST 05/16/2024 2:47 PM EST Scott Weldon MD LAB BLOOD ORDERABLES Fin al Result LABORATORY [facility] [address] [place] [address] documented in this encounter Visit Diagnoses Diagnosis Elevated lipase- Primary Other nonspecific abnormal serum enzyme levels documented [...] Power of Attor narda? No Care Teams Regional Education Coordinator Relationship Specialty Start Date End Date Scott Weldon MD [address] [place] [address] PCP - General Family Medicine 08/03/18 documented as of this encounter
--- OUTSIDE RECORDS SUMMARY | 2024-09-10 21:26 | External Medical Summary | Summary of Care ---
Author Name Unknown Organization [facility] Address [address] [facility] [place] [address] Phone [phone] Care Team Providers Care Duralumin Metalworker Name Role Phone Scott Weldon MD Primary Care Provider + Reason for Visit * Reason Onset Date Comments Medication Refill 06/02/2024 Encounter Details Date Type Department Care Team (Late st Contact Info) Description 06/02/2024 Refill Family Practice [facility] [address] [place] [address] Scott Weldon MD [address] [place] [address] Controlled substance agreement signed; Chronic bilateral low back pain with sciatica, sciatica laterality unspecified; Chronic pain syndrome Allergies Active Allergy Reactions Criticality Noted Date Comments Naproxen Sodium Bleeding High 11/29/2013 Pollen 12/03/2022 Seasonal Food (See Comments) Anaphylaxis High 04/20/2019 Hot peppers (oils) Kiwi Extract Anaphylaxis High 04/20/2019 documented as of this encounter (statuses as of 06/03/2024) Medications insulin glargine (LANTUS SOLOSTAR) 100 UNIT/ML [...] goal of less than 8.0% ([facility]) Use as directed. 07/30/19 18 [...] suspected opioid overdose. Seek immediate medical attention. [email or web address] 1 Each 3 11/28/19 23 Active Loratadine [...] MG/DOSE)) Inject under the skin. Obtaining from [employer] Active Buprenorphine 5 MCG/HR Transdermal Patch Weekly (Butrans)Indicatio ns:Controlled substance agreement signed,Chronic bilateral low back pain with sciatica, sciatica laterality unspecified,Chroni c pain syndrome Place 1 Patch topically on the skin once a week. 4 Patch 06/03/20 24 Active documented as of this encounter (statuses as of 06/03/2024) Active Problems Problem Noted Date Diagnosed Date [...] as of this encounter (statuses as of 06/03/2024) Resolved Problems Problem Noted Date Diagnosed Date [...] (09/03/2009): Per Obesity Taxonomy Coronary atherosclerosis of coquille coronary artery 09/15/2008 10/03/2008 Malaise and fatigue [...] as of this encounter (statuses as of 06/03/2024) Immunizations Name Administration Dates Next Due COVID-19 mRNA, LNP-s, No Pre serve, 2-Dose Series ([employer]) 11/08/2020,10/11/2020 HEP A - Hepatitis A (Adult > 18 yrs) 04/11/2011, 09/20/2010 Hepatitis B, 20+ yrs 07/05/2015 Pneumococcal Conjugate Vacci ne, 20-valent ([id number]) 03/13/2023 Pneumococcal Polysaccharide PPV23 (Pneumovax) 02/19/2018,03/09/2007 Seasonal [...] encounter Miscellaneous Notes * Telephone Encounter - Flash Guerrero RPh - 06/03/2024 7:40 PM EST Refused Prescriptions: Disp Refills Buprenorphine 5 MCG/HR Transdermal Patch W*4 Patch0 Sig: Place 1 Patch topically on the skin once a week.Refused By: FLASH GUERRERO for Refusal: Duplicate Request documented in this encounter Plan of Treatment Upcoming Encounters Date Type Department Care Team (Late st Contact Info) Description 06/07/2024 11:00 AM EST Scheduled Telephone Care Coordination and Integration [address] [place] [address] Tania Dove, Community Health Director [place] [address] [place] [address] 06/13/2024 10:00 AM EST Hem/Onc Treatment Hematology/Oncology Treatment, [place] [address] [place] [phone] Nora, Chair 1 Hem Onc [place] [address] [place] [address] 06/14/2024 9:15 AM EST Scheduled Telephone Care Coordination and Integration [address] [place] [facility] [place] [address] Tania Dove, Community Health Director [place] [address] [place] [address] 06/16/2024 8:30 AM EST Telemedicine Pharmacy, [facility] 132 [facility] [place] [address] [facility] 132 [facility] [place] [address] 06/27/2024 1:00 PM EST [facility] [address] [place] [phone] [address] [address] 06/30/2024 8:00 AM EST Office Visit Family Practice [facility] [address] [place] [address] Scott Weldon MD 132 [facility] [place] [address] 06/30/2024 1:20 PM EST Office Visit Hepatology, [facility] [place] [address] Jazzy Chu DO [address] [place], [place] [address] 07/07/2024 9:30 AM EST Telemedicine Psychiatry [facility] [address] [place] [address] Nhi Fritz CRNP [address] [place] [address] 07/08/2024 10:30 AM EST Telemedicine Gastroenterology, [facility] [place] [address] Adam Bradshaw CRNP [address] [place] [address] 09/14/2024 2:00 PM EDT Office Visit Hematology/Oncology [facility] 200 [facility] [place] [address] Sunil Bourgeois MD 200 [place] [address] 12/14/2024 12:20 PM EDT Office Visit [facility] [address] [place] [address] Scott Weldon MD 132 [facility] [place] [address] 06/16/2025 11:40 AM EST Office Visit [facility] [address] [place] [address] Scott Weldon MD [address] [place] [address] Scheduled Procedures Name Priority Associated Diagnoses Date/Ti [...] this encounter Medical Devices Implanted Type Area Religious Activities Director Device Identifier Shelf Expiration Date Model / Serial / Lot Neurostimul Intellis Adaptiv - [id number] - [id number] Implanted:Qty: 1 on 08/22/2022 by Rafia Small MD at [facility] N/A: Spine Lumbar [employer] 06/21/2023 [id number] / [id number] / Description:battery Medtronic Lead Kit 60 Cm Implanted:Qty: 1 on 08/22/2022 by Rafia Small MD at [facility] N/A: Spine Lumbar 02/01/2026 [id number] / / [id number] Medtronic Lead Kit 60cm Implanted:Qty: 1 on 08/22/2022 by Rafia Small MD at [facility] N/A: Spine Lumbar 03/21/2026 [id number] / / [id number] Envelope Tyrx Med Antibacteril - [id number] Implanted:Qty: 1 on 08/22/2022 by Rafia Small MD at [facility] N/A: Spine Lumbar [employer] 03/10/2023 [id number] / / [id number] Hemostatic Clip Res 235cm - [id number] Implanted:Qty: 4 on 10/05/2023 by Aj Pruett DO at [facility] [employer] : ENDOSCOPY 02/03/2026 [id number] / / Hemostatic Clip Res 235cm - [id number] Implanted:Qty: 1 on 10/05/2023 by Aj Pruett DO at [facility] : ENDOSCOPY 02/02/2026 [id number] / / documented as of this encounter [...] Power of Attor narda? No Care Teams Duralumin Metalworker Relationship Specialty Start Date End Date Scott Weldon MD 132 [facility] [place] [address] PCP - General Family Medicine 08/03/18 documented as of this encounter
--- OUTSIDE RECORDS SUMMARY | 2024-09-10 21:26 | External Medical Summary | Summary of Care ---
Author Name Unknown Organization [facility] Address [address] [place] [address] Phone [phone] Care Team Providers Care Felled Seam Operator Chainstitch Name Role Phone Scott Weldon MD Primary Care Provider + Encounter Details Date Type Department Care Team (Late st Contact Info) Description 05/31/2024 Population Health External Data Unspecified Department Allergies Active Allergy Reactions Criticality Noted Date Comments Naproxen Sodium Bleeding High 11/29/2013 Pollen 12/03/2022 Seasonal Food (See Comments) Anaphylaxis High 04/20/2019 Hot peppers (oils) Kiwi Extract Anaphylaxis High 04/20/2019 documented as of this encounter (statuses as of 05/31/2024) Medications insulin glargine (LANTUS SOLOSTAR) 100 UNIT/ML [...] 5 02/18/20 17 Active Insulin Infusion Pump (MINIMSBR Health 630G INSULIN PUMP) KITIndications:Typ e 2 diabetes [...] suspected opioid overdose. Seek immediate medical attention. [email or web address] 1 Each 3 11/28/19 23 Active Loratadine [...] 8.0% (HCC),DM type 2, not at goal ([facility]) INJECT UP TO 200 UNITS [...] 4 11:35 AM EST 05/04/20 24 Active Buprenorphine 5 [...] for shortness of breath 20.1 g 03/19/20 Active Baclofen 10 MG Oral Tablet (Lioresal)Indicati ons:Back spasm Take 1 Tablet by mouth in the morning and 1 Tablet at noon and 1 Tablet before bedtime. 90 Tablet 2 4 1:21 PM EST 05/16/20 Active Ozempic (2 MG/DOSE) 8 MG/3ML Subcutaneous Solution Pen-injector (Semaglutide (2 MG/DOSE)) Inject under the skin. Obtaining from Influx Active documented as of this encounter (statuses as of 05/31/2024) Active Problems Problem Noted Date Diagnosed Date [...] as of this encounter (statuses as of 05/31/2024) Resolved Problems Problem Noted Date Diagnosed Date [...] as of this encounter (statuses as of 05/31/2024) Immunizations Name Administration Dates Next Due COVID-19 mRNA, LNP-s, No Pre serve, 2-Dose Series (Pfizer) 11/08/2020,10/11/2020 HEP A - Hepatitis A (Adult > 18 yrs) 04/11/2011, 09/20/2010 Hepatitis B, 20+ yrs 07/05/2015 Pneumococcal Conjugate Vacci ne, 20-valent ([id number]) 03/13/2023 Pneumococcal Polysaccharide PPV23 (Pneumovax) 02/19/2018,03/09/2007 Seasonal [...] No 05/17/2024 Does the household have a [facility] source of income? (Household - for ages [...] Telephone Care Coordination and Integration [address] [place] [address] Tania Dove, Community Health Tank Charger [address] [place] [address] 06/07/2024 11:00 AM EST Scheduled Telephone Care Coordination and Integration [address] [place] [facility] [place] [address] Tania Dove, Community Health Tank Charger [address] [place] [address] 06/13/2024 10:00 AM EST Hem/Onc Treatment Hematology/Oncology Treatment, [place] 200 [facility], [place] [address] Nora, Chair 1 Hem Onc Scene [facility] [address] 06/14/2024 9:15 AM EST Scheduled Telephone Care Coordination and Integration [address] [place] [facility] [place] [address] Tania Dove, Community Health Tank Charger [address] [place] [address] 06/16/2024 8:30 AM EST Telemedicine Pharmacy, [facility] [address] [facility] 132 [place] [address] 06/27/2024 1:00 PM EST Office Visit Pharmacy, [address] [phone] [address] [address] 06/30/2024 8:00 AM EST Office Visit Family Practice [facility] [address] Scott Weldon MD [facility] [address] 06/30/2024 1:20 PM EST Office Visit Hepatology, [facility] [address] Jazzy Chu DO [facility] [place] [address] 07/07/2024 9:30 AM EST Telemedicine Psychiatry [facility] [address] [place] [phone] Nhi Fritz CRNP [address] [place] [address] 07/08/2024 10:30 AM EST Telemedicine Gastroenterology, [facility] [address] [facility] [address] Adam Bradshaw CRNP [address] [place] [address] 09/14/2024 2:00 PM EDT Office Visit Hematology/Oncology [facility] 200 [facility] [place] [phone] Sunil Bourgeois MD 200 [place] [address] 12/14/2024 12:20 PM EDT Office Visit [facility] [address] [place] [address] Scott Weldon MD [address] [place] [address] 06/16/2025 11:40 AM EST Office Visit [facility] [address] [place] [address] Scott Weldon MD [address] [place] [address] Scheduled Procedures Name Priority Associated Diagnoses Date/Ti [...] this encounter Medical Devices Implanted Type Area Cds Sales Advisor Device Identifier Shelf Expiration Date Model / Serial / Lot Neurostimul Intellis Adaptiv - [id number] - [id number] Implanted:Qty: 1 on 08/22/2022 by Rafia Small MD at OR [facility] N/A: Spine Lumbar [employer] 06/21/2023 [id number] / [id number] / Description:battery Medtronic Lead Kit 60 Cm Implanted:Qty: 1 on 08/22/2022 by Rafia Small MD at OR [facility] N/A: Spine Lumbar 02/01/2026 [id number] / / [id number] Medtronic Lead Kit 60cm Implanted:Qty: 1 on 08/22/2022 by Rafia Small MD at OR [facility] N/A: Spine Lumbar 03/21/2026 [id number] / / [id number] Envelope Tyrx Med Antibacteril - [id number] Implanted:Qty: 1 on 08/22/2022 by Rafia Small MD at OR [facility] N/A: Spine Lumbar [employer] 03/10/2023 [id number] / / [id number] Hemostatic Clip Res 235cm - [id number] Implanted:Qty: 4 on 10/05/2023 by Aj Pruett DO at ENDOSCOPY [facility] : ENDOSCOPY 02/03/2026 [id number] / / Hemostatic Clip Res 235cm - [id number] Implanted:Qty: 1 on 10/05/2023 by Aj Pruett DO at ENDOSCOPY [facility] [employer] : ENDOSCOPY 02/02/2026 [id number] / / documented as of this encounter [...] Power of Attor narda? No Care Teams Felled Seam Operator Chainstitch Relationship Specialty Start Date End Date Scott Weldon MD [address] [place] [address] PCP - General Family Medicine 08/03/18 documented as of this encounter
--- OUTSIDE RECORDS SUMMARY | 2024-09-10 21:26 | External Medical Summary | Summary of Care ---
Author Name Unknown Organization [facility] Address [address] [place] [address] Phone [phone] Care Team Providers Care Bonding Machine Setter Name Role Phone Scott Weldon MD Primary Care Provider + Encounter Details Date Type Department Care Team (Late st Contact Info) Description 05/31/2024 12:15 PM EST Scheduled Telephone Care Coordination and Integration [address] [place], [place] [id number] Tania Dove, Community Health Reimbursement Counselor [address] [place], [place] [id number] Allergies Active Allergy Reactions Criticality Noted Date [...] 5 02/18/20 17 Active Insulin Infusion Pump (MINIMSouqalmal 630G INSULIN PUMP) KITIndications:Typ e 2 diabetes mellitus with hemoglobin A1c goal of less than 8.0% ([facility]) Use as directed. 07/30/19 18 Active [...] suspected opioid overdose. Seek immediate medical attention. [email or web address]?v=[email or web address] 1 Each 3 11/28/19 23 Active Loratadine [...] MG/DOSE)) Inject under the skin. Obtaining from [employer] Active documented as of this encounter (statuses [...] (09/03/2009): Per Obesity Taxonomy Coronary atherosclerosis of [place] coronary artery 09/15/2008 10/03/2008 Malaise and fatigue [...] yrs 07/05/2015 Pneumococcal Conjugate Vacci ne, 20-valent ([id number]) 03/13/2023 Pneumococcal Polysaccharide PPV23 (Pneumovax) 02/19/2018,03/09/2007 Seasonal [...] in this encounter Progress Notes * Tania Dove Community Health Reimbursement Counselor - 05/31/2024 2:14 PM EST Telemedicine visit: No CHW outbound call to patient per Loly MANRIQUEZ [facility] Unable to leave a message Tania Dove [facility] Community Health Worker Call or Text- [phone] documented in this encounter Plan of Treatment Upcoming Encounters Date Type Department Care Team (Late st Contact Info) Description 06/07/2024 11:00 AM EST Scheduled Telephone Care Coordination and Integration [address] [place] [address] Tania Dove Community Health Reimbursement Counselor [address] [place] [address] 06/13/2024 10:00 AM EST Hem/Onc Treatment Hematology/Oncology Treatment, [address] [place], [place] [address] Nora, Chair 1 Hem Onc Scenery [address] [place], [place] [address] 06/14/2024 9:15 AM EST Scheduled Telephone Care Coordination and Integration [address] [place] [address] Tania Dove, Community Health Reimbursement Counselor [address] [place] [address] 06/16/2024 8:30 AM EST Telemedicine Pharmacy, [facility] 132 [facility] [place] [address] [facility] 132 [facility] [place] [address] 06/27/2024 1:00 PM EST Office Visit Pharmacy, [address] [place] [phone] [address] [address] 06/30/2024 8:00 AM EST Office Visit Family Practice [facility] 132 [facility] [place] [address] Scott Weldon MD [address] [place] [address] 06/30/2024 1:20 PM EST Office Visit Hepatology, [facility] 132 [facility] [place] [address] Jazzy Chu DO [address] [place] [address] 07/07/2024 9:30 AM EST Telemedicine Psychiatry [address] [phone] Nhi Fritz CRNP [address] [place] [address] 07/08/2024 10:30 AM EST Telemedicine Gastroenterology, [facility] 132 [facility] [place] [address] Adam Bradshaw CRNP [address] [place] [address] 09/14/2024 2:00 PM EDT Office Visit Hematology/Oncology [facility] 200 [facility] [place] [phone] Sunil Bourgeois MD 200 [facility] [place] [address] 12/14/2024 12:20 PM EDT Office Visit Family Practice [facility] 132 [facility] [place] [address] Scott Weldon MD 132 [facility] [place] [address] 06/16/2025 11:40 AM EST Office Visit [facility] 132 [facility] [place] [address] Scott Weldon MD 132 [facility] [place] [address] Scheduled Procedures Name Priority Associated Diagnoses Date/Ti [...] encounter Medical Devices Implanted Type Area Manager Office Services Device Identifier Shelf Expiration Date Model / Serial / Lot Neurostimul Intellis Adaptiv - [id number] - [id number] Implanted:Qty: 1 on 08/22/2022 by Rafia Small MD at OR [facility] N/A: Spine Lumbar [employer] 06/21/2023 [id number] / [id number] / Description:battery Medtronic Lead Kit 60 Cm Implanted:Qty: 1 on 08/22/2022 by Rafia Small MD at OR [facility] N/A: Spine Lumbar 02/01/2026 [id number] / / [id number] Medtronic Lead Kit 60cm Implanted:Qty: 1 on 08/22/2022 by Rafia Small MD at OR [facility] N/A: Spine Lumbar 03/21/2026 [id number] / / [id number] Envelope Tyrx Med Antibacteril - [id number] Implanted:Qty: 1 on 08/22/2022 by Rafia Small MD at OR [facility] N/A: Spine Lumbar [employer] 03/10/2023 [id number] / / [id number] Hemostatic Clip Res 235cm - [id number] Implanted:Qty: 4 on 10/05/2023 by Aj Pruett DO at ENDOSCOPY [facility] [employer] : ENDOSCOPY 02/03/2026 [id number] / / Hemostatic Clip Res 235cm - [id number] Implanted:Qty: 1 on 10/05/2023 by Aj Pruett DO at ENDOSCOPY [facility] [employer] : ENDOSCOPY 02/02/2026 [id number] / / documented as of this encounter [...] Power of Attor narda? No Care Teams Bonding Machine Setter Relationship Specialty Start Date End Date Scott Weldon MD [address] [place] [address] PCP - General Family Medicine 08/03/18 documented as of this encounter
--- OUTSIDE RECORDS SUMMARY | 2024-09-10 21:26 | External Medical Summary | Summary of Care ---
Author Name Unknown Organization [facility] Address [address] [facility] [place] [address] Phone [phone] Care Team Providers Care Pipe Buffer Name Role Phone Scott Weldon MD Primary Care Provider + Reason for Visit * Reason Onset Date Comments Medication Refill 05/30/2024 Encounter Details Date Type Department Care Team (Late st Contact Info) Description 05/30/2024 Refill Family Practice [facility] [address] [place] [address] Scott Weldon MD [address] [place] [address] Controlled substance agreement signed; Chronic bilateral low [...] suspected opioid overdose. Seek immediate medical attention. [email or web address] 1 Each 3 11/28/19 23 Active Loratadine [...] MG/DOSE)) Inject under the skin. Obtaining from [employer] Active Buprenorphine 5 MCG/HR Transdermal Patch Weekly (Butrans)Indicati ons:Controlled substance agreement signed,Chronic bilateral low back pain with sciatica, sciatica laterality unspecified,Chron ic pain syndrome Place 1 Patch topically on the skin once a week. 4 Patch 06/03/20 24 Active Buprenorphine 5 MCG/HR Transdermal Patch Weekly (Butrans)Indicati ons:Controlled substance agreement signed,Chronic bilateral low back pain with sciatica, sciatica laterality unspecified,Chron ic pain syndrome Place 1 Patch topically on the skin once a week. 4 Patch 05/04/20 24 024 Disconti nued(Ref ill) documented as of this encounter (statuses as of 06/03/2024) Active Problems Problem Noted Date Diagnosed Date MDD (major depressive disord er), recurrent, in full remission 04/14/2024 Type II diabetes mellitus with neurological sanigta festations 08/20/2023 Esophageal varices without bleeding 09/08/2022 [...] (09/03/2009): Per Obesity Taxonomy Coronary atherosclerosis of north [...] Candidal vulvovaginitis 01/06/2001 0411/2003 Constipation 09/02/2000 08/29/2013 Overview (08/30/2015): ICD-10 update of inactive term ACUTE BRONCHITIS 07/04/1999 10/02/2003 Dyslipidemia, goal LDL below 100 03/06/2010 ASCVD 01/24/2015 Other specified disorders of liver 12/30/2010 Overview (03/12/2010): fatty liver Kidney stone 09/15/2014 Overview (05/14/2012): x 2 documented as of this encounter (statuses as of 06/03/2024) Immunizations Name Administration Dates Next Due COVID-19 mRNA, LNP-s, No Pre serve, 2-Dose Series (Linq3) 11/08/2020,10/11/2020 HEP A - Hepatitis A (Adult > 18 yrs) 04/11/2011, 09/20/2010 Hepatitis B, 20+ yrs 07/05/2015 Pneumococcal Conjugate Vacci ne, 20-valent ([id number]) 03/13/2023 Pneumococcal Polysaccharide PPV23 (Pneumovax) 02/19/2018,03/09/2007 Seasonal [...] encounter Miscellaneous Notes * Telephone Encounter - Jairo Crawford MD - 06/03/2024 9:27 AM EST Covering for Fatemeh. Rx sent after review. * Telephone Encounter - Jairo Crawford MD - 06/03/2024 9:27 AM EST Signed Prescriptions: Disp Refills Buprenorphine 5 MCG/HR Transdermal Patch W*4 Patch0 Sig: Place 1 Patch topically on the skin once a week. Authorizing Provider: JAIRO CRAWFORD * Telephone Encounter - Mariano Fernandez, [facility] - 06/02/2024 11:05 AM ESTPending Prescriptions: Disp Refills Buprenorphine 5 MCG/HR Transdermal Patch W*4 Patch0 Sig: Place 1 Patch topically on the skin once a week. * [facility] - [facility] 11:02 AM EST I have reviewed the patient’s controlled substance dispensing history in the Prescription Drug Monitoring Program in compliance with the [facility] regulations before prescribing a controlled substance. PDMP checked on 06/02/2024. Pending Prescriptions: Disp Refills Buprenorphine 5 MCG/HR Transdermal Patch *4 Patch0 Sig: Place 1 Patch topically on the skin once a week. Last Visit: 05/18/2024 (in office), 03/16/2024 (telemedicine) Next Visit: 06/30/2024 Date medication was last filled: 05/04/24 Date medication is due for refill: 06/01/24 Pharmacy: [id number] [address] [facility] Is this request for a controlled [...] Review. Please approve if appropriate. Thank You, Mariano Patel [facility] Clinical Pharmacist [facility] ([facility]) 06/02/2024, 11:02 AM documented in this encounter Plan of Treatment Upcoming Encounters Date Type Department Care Team (Late st Contact Info) Description 06/07/2024 11:00 AM EST Scheduled Telephone Care Coordination and Integration [address] [place] [address] Tania Dove, Community Health Supervisor Component Assembler [address] [place] [address] 06/13/2024 10:00 AM EST Hem/Onc Treatment Hematology/Oncology Treatment, [place] 200 [place] [address] Nora, Chair 1 Hem Onc Scenery [facility] [id number] 06/14/2024 9:15 AM EST Scheduled Telephone Care Coordination and Integration [address] [place] [address] Tania Dove, Community Health Supervisor Component Assembler [address] [place] [address] 06/16/2024 8:30 AM EST Telemedicine Pharmacy, [facility] 132 [place] [address] [facility] 132 [place] [address] 06/27/2024 1:00 PM EST Office Visit Pharmacy, [address] [phone] [address] [address] 06/30/2024 8:00 AM EST Office Visit Family Practice [facility] 132 [facility] [place] [address] Scott Weldon MD [facility] [address] 06/30/2024 1:20 PM EST Office Visit Hepatology, [facility] 132 [facility] [place] [address] Jazzy Chu DO [facility] [place] [address] 07/07/2024 9:30 AM EST Telemedicine Psychiatry [address] [phone] Nhi Fritz CRNP 1800 [place] [address] 07/08/2024 10:30 AM EST Telemedicine Gastroenterology, [facility] [address] [place] [address] Adam Bradshaw CRNP [address] [place] [address] 09/14/2024 2:00 PM EDT Office Visit Hematology/Oncology [facility] 200 [facility] [place] [address] Sunil Bourgeois MD 200 [facility] [place] [address] 12/14/2024 12:20 PM EDT Office Visit Family [facility] [address] [place] [address] Scott Weldon MD [address] [place] [address] 06/16/2025 11:40 AM EST Office Visit [facility] [address] [place] [address] Scott Weldon MD 132 [facility] [place] [address] Scheduled Procedures Name Priority Associated Diagnoses Date/Ti [...] this encounter Medical Devices Implanted Type Area Compliance Associate Device Identifier Shelf Expiration Date Model / Serial / Lot Neurostimul Bladeis Adaptiv - [id number] - [id number] Implanted:Qty: 1 on 08/22/2022 by Rafia mSall MD at OR [facility] N/A: Spine Lumbar [employer] 06/21/2023 [id number] / [id number] / Description:battery Medtronic Lead Kit 60 Cm Implanted:Qty: 1 on 08/22/2022 by Rafia Small MD at OR [facility] N/A: Spine Lumbar 02/01/2026 [id number] / / [id number] Medtronic Lead Kit 60cm Implanted:Qty: 1 on 08/22/2022 by Rafia Small MD at OR [facility] N/A: Spine Lumbar 03/21/2026 [id number] / / [id number] Envelope Tyrx Med Antibacteril - [id number] Implanted:Qty: 1 on 08/22/2022 by Rafia Small MD at OR [facility] N/A: Spine Lumbar [employer] 03/10/2023 [id number] / / [id number] Hemostatic Clip Res 235cm - [id number] Implanted:Qty: 4 on 10/05/2023 by Aj Pruett DO at ENDOSCOPY [facility] [employer] : ENDOSCOPY 02/03/2026 [id number] / / Hemostatic Clip Res 235cm - [id number] Implanted:Qty: 1 on 10/05/2023 by Aj Pruett DO at ENDOSCOPY [facility] [employer] : ENDOSCOPY 02/02/2026 [id number] / / documented as of this encounter [...] Power of Attor narda? No Care Teams Pipe Buffer Relationship Specialty Start Date End Date Scott Weldon MD [address] [place] [address] PCP - General Family Medicine 08/03/18 documented as of this encounter
[2024-09-10 22:07] LABS: Basophils # (auto) 0.04 K/uL (0.00-0.20); Basophils % (auto) 0.6 %; Eosinophils # (auto) 0.15 K/uL (0.00-0.50); Eosinophils % (auto) 2.2 %; Hematocrit (blood only) 38.3 % (37.0-47.0); Hemoglobin 12.3 g/dl (12.0-16.0); Immature Granulocytes # (auto) 0.05 K/uL (0.01-0.20); Immature Granulocytes % (auto) 0.7 %; Lymphocytes # (auto) 0.46 K/uL (1.20-3.40); Lymphocytes % (auto) 6.8 %; Mean Corpuscular Hemoglobin 27.3 pg (25.0-34.0); Mean Corpuscular Hgb Conc 32.1 g/dL (32.0-36.0); Mean Corpuscular Volume 84.9 fL (80.0-100.0); Mean Platelet Volume 10.5 fL (9.4-12.4); Monocytes % (auto) 7.4 %; Neutrophils # (auto) 5.56 K/uL (1.40-6.50); Neutrophils % (auto) 82.3 %; Platelet Count 60 K/uL (130-400); RDW Coefficient of Variation 13.9 % (11.5-14.5); RDW Standard Deviation 43.2 fL (36.4-46.3); Red Blood Count 4.51 M/uL (4.20-5.40); White Blood Count 6.76 K/ul (4.8-10.8)
[2024-09-10 22:18] LABS: Albumin Globulin Ratio 1.3 (0.9-2); Albumin Level 4.2 gm/dl (3.4-5.0); BUN Creatinine Ratio 15.8 (10-20); Bilirubin,Total 0.9 mg/dl (0.2-1.0); Calcium 8.8 mg/dl (8.6-10.3); Creatinine Clr Calc Pharmacy 47.4 ml/min; Globulin 3.2 gm/dl (2.5-4.0); Potassium 4.2 mmol/L (3.5-5.1); Total Protein 7.4 gm/dl (6.0-8.3)
[2024-09-10 22:25] LABS: Troponin I High Sensitivity 3.4 pg/ml (0-14)
[2024-09-10] MEDS: cefTRIAXone SODIUM 2,000 MG/50 ML BAG IV STA (22:45)
[2024-09-10 22:55] LABS: Adenovirus PCR Not Detected (NotDetected); Bordetella parapertussis PCR Not Detected (NotDetected); Bordetella pertussis PCR Not Detected (NotDetected); Chlamydia pneumoniae PCR Not Detected (NotDetected); Coronavirus 229E PCR Not Detected (NotDetected); Coronavirus CoV-2 (COVID19)PCR Not Detected (NotDetected); Coronavirus HKU1 PCR Not Detected (NotDetected); Coronavirus NL63 PCR Not Detected (NotDetected); Coronavirus OC43PCR Not Detected (NotDetected); Human Metapneumovirus PCR Not Detected (NotDetected); Influenza A PCR Not Detected (NotDetected); Influenza B PCR Not Detected (NotDetected); Mycoplasma pneumoniae PCR Not Detected (NotDetected); Parainfluenza Virus 1 PCR Not Detected (NotDetected); Parainfluenza Virus 2 PCR Not Detected (NotDetected); Parainfluenza Virus 3 PCR Not Detected (NotDetected); Parainfluenza Virus 4 PCR Not Detected (NotDetected); Respiratory Syncytial VirusPCR Not Detected (NotDetected); Rhinovirus/Enterovirus PCR Not Detected (NotDetected)
[2024-09-10] MEDS: MoRPHine SULFATE 2 MG/ML CARP IV STA (23:21)
[2024-09-10] MEDS: ONDANSETRON INJ 2 MG/ML 2 ML VIAL IV STA (23:21)
[2024-09-10] MEDS: ACETAMINOPHEN 1,000 MG/100 ML VIAL IV STA (23:22)
--- NOTE | 2024-09-11 01:57 | Ultrasound Report ---
EXAM: US venous doppler LE CLINICAL HISTORY: DVT. TECHNIQUE: Ultrasound examination of bilateral lower extremity veins was performed in real time and duplex. One or more of the following were performed- spectral analysis, resistive index, waveform analysis, and pulsed Doppler. COMPARISON: 02/02/2024, US venous doppler LE . FINDINGS: Limited examination due to increased body habitus. Normal phasic, non-pulsatile and spontaneous flow is noted in the bilateral common femoral, superficial femoral, popliteal, anterior and posterior tibial and peroneal veins. Visualized veins of both lower extremities demonstrate normal compressibility. No sonographic evidence of acute deep vein thrombosis (DVT) is detected in the visualized veins of both lower extremities. Compression and Augmentation: All evaluated veins compress fully with applied transducer pressure. Augmentation of venous flow is noted with distal compression. Additional Findings: No evidence of intraluminal thrombus. Possible lymph node in right inguinal region as per image, 400() IMPRESSION: 1. No sonographic evidence of acute DVT detected in the bilateral common femoral, superficial femoral, popliteal, anterior and posterior tibial and peroneal veins, at the time of examination. 2. No obvious lymph node seen in the left popliteal region in current examination. 3. Possible lymph node in right inguinal region. 4. No other significant relevant interval change is seen. Disclaimer: DVT could be missed early in the disease when clot burden is minimal. For patients with moderate and high pretest probability of DVT and negative ultrasound, the [place] [employer] clinical guidelines recommend testing with a D-dimer assay or repeat ultrasound in 5-7 days. If symptoms worsen, the Society of radiologists in ultrasound recommends repeating ultrasound even earlier. Electronically signed by Mick Perry 09-11-2024 01:56 AM
[2024-09-11] MEDS ORDERED: ACETAMINOPHEN 500 MG TAB PO PRN (02:25)
[2024-09-11] MEDS: DOXYCYCLINE HYCLATE 100 MG in DEXTROSE 5% MINI-B 100 ML IV STA (02:34)
--- NOTE | 2024-09-11 03:05 | Emergency Department Note ---
ED Provider Note CHIEF COMPLAINT: fever, right leg infection HISTORY OF PRESENT ILLNESS: This 54-year-old female patient past medical history of nonalcoholic fatty liver disease, pancytopenia, acute kidney injury, hypomagnesemia, UTI, hepatocellular carcinoma, seizure disorder, type 2 diabetes, GERD, bipolar disorder, hypertension, obstructive sleep apnea presents to the emergency department with complaints of a fever and right lower extremity redness. Patient states she has been cutting the calluses off of the heels of her feet because she cannot get into see a field technician. She cut too deep yesterday and had significant bleeding this morning the patient began to feel not well. She felt as though she had a fever although she did not measure it. She did take some Tylenol for pain around lunchtime today. This evening she noticed erythema surrounding the heel and up the posterior aspect of the calf. REVIEW OF SYSTEMS: A review of systems was performed with positives and pertinent negatives listed in the history of present illness. 10 systems were reviewed and are otherwise negative. ALLERGIES: see below MEDICATIONS: see below PMH: see below SOCIAL HISTORY: see below DDx: DVT, cellulitis, viral process, pneumonia, UTI among others. PHYSICAL EXAM: Vital signs reviewed. General: Well-appearing obese 54-year-old female, in no significant distress. HEENT: No scleral icterus, PERRLA, neck supple. moist mucous membranes Cardiovascular: Regular rate and rhythm, no extra sounds. Pulmonary: Clear to auscultation bilaterally, normal work of breathing. Abdomen: Soft, nontender, nondistended, positive bowel sounds. Musculoskeletal: Atraumatic, no peripheral edema. Neurologic: Patient awake alert and oriented x 3, speech is clear Skin: Warm, dry, EMERGENCY DEPARTMENT COURSE/MDM: MONITORING: An order for cardiac monitoring was placed and the patient is noted to be in a NSR at 95 beats per minute. RADIOLOGY: chest x-ray to my interpretation reveals an indwelling port access to the left anterior chest wall, poor inspiratory effort. No focal lung consolidation. Venous Doppler of the bilateral lower extremities: IMPRESSION: 1. No sonographic evidence of acute DVT detected in the bilateral common femoral, superficial femoral, popliteal, anterior and posterior tibial and peroneal veins, at the time of examination. 2. No obvious lymph node seen in the left popliteal region in current examination. 3. Possible lymph node in right inguinal region. 4. No other significant relevant interval change is seen. EKG: To my interpretation reveals normal sinus rhythm at 96 bpm. QTc of 464. No PVC, no PAC. DISPOSITION: Admission Past Med/Surg History Problem List (Updated 09/11/24 @ 12:07 by Peewee Matute DO) Acute renal failure superimposed on stage 3a chronic kidney disease Orthostatic syncope Cellulitis of right foot Sepsis NAFLD (nonalcoholic fatty liver disease) (Acute) Pancytopenia (Acute) Abdominal pain (Acute) Near syncope Encephalopathy Polypharmacy (Acute) Drowsiness (Acute) Dizziness (Acute) EVA (acute kidney injury) (Acute) Falls (Acute) Abdominal pain (Acute) EVA (acute kidney injury) (Acute) Hypotension (Acute) Hematemesis (Acute) Bright red rectal bleeding (Acute) Abdominal pain (Acute) Acute hypoxemic respiratory failure Hypoxia (Acute) Pneumonia due to COVID-19 virus (Acute) Hypophosphatemia (Acute) Seizure (Acute) Right flank pain (Acute) History of liver cancer (Acute) DVT prophylaxis Seizure (Acute) UTI (urinary tract infection) (Acute) Hypomagnesemia (Acute) Dehydration (Acute) Hyperglycemia (Acute) Rene's paralysis (Acute) Hepatocellular carcinoma Epileptic seizure (Acute) Anemia (Acute) Thrombocytopenia T2DM (type 2 diabetes mellitus) (Chronic) GERD (gastroesophageal reflux disease) (Chronic) Bipolar disorder (Chronic) Chronic pain (Chronic) HTN (hypertension) (Chronic) HLD (hyperlipidemia) (Chronic) Depression (Chronic) DONNA (obstructive sleep apnea) (Chronic) Back pain (Chronic) Liver cirrhosis secondary to MENDEZ (Acute) Medical History (Updated 09/11/24 @ 12:07 by Peewee Matute DO) Stroke Seizure Vertigo Liver cancer H/O TIA (transient ischemic attack) and stroke Hypertension Surgical History History of tubal ligation History of hysterectomy Family History Other No significant family history Social History Smoking Status: Never smoker Tobacco Type: Cigarettes Second Hand Exposure: No; Do You Dip or Chew Tobacco: No; Hx Alcohol Use: No Hx Substance Use: No Preferred Language: Sudanese Communication Ability: Effective Expressive Music Therapist Required: No Beliefs That Will Affect Care: None Current Living Situation: Spouse Current Living Situation Comment: and a son Feels Safe at Home: Yes Assistive Devices: Cane and Other Allergies Allergies Allergy/AdvReac Type Severity Reaction Status Date / Time naproxen Allergy Unknown BLEEDING Verified 08/11/23 20:32 Home Meds Home Medications Medication Instructions Recorded Confirmed albuterol sulfate 90 mcg/actuation 2 puff inhalation Q6 PRN Shortness 08/11/23 09/11/24 aerosol inhaler Of Breath Or Wheezing atorvastatin 40 mg tablet 40 mg PO DAILYBL 08/11/23 09/11/24 baclofen 10 mg tablet 10 mg PO TID 08/11/23 09/11/24 buprenorphine 5 mcg/hour weekly 1 patch topical WK 08/11/23 09/11/24 transdermal patch dicyclomine 20 mg tablet 20 mg PO HS 08/11/23 09/11/24 escitalopram oxalate 20 mg tablet 20 mg PO QAM 08/11/23 09/11/24 eszopiclone 2 mg tablet 2 mg PO HS 08/11/23 09/11/24 hydroxyzine HCl 25 mg tablet 25 mg PO TID Anxiety 08/11/23 09/11/24 insulin regular human 100 unit/mL 0 unit continuous subcutaneous 08/11/23 09/11/24 injection solution (Novolin R infusion DIRECTED Regular U-100 Insulin) loratadine 10 mg tablet 10 mg PO QAM PRN Other 08/11/23 09/11/24 magnesium oxide 400 mg PO DAILY 08/11/23 09/11/24 meclizine 25 mg tablet 25 mg PO TID PRN .dizzy 08/11/23 09/11/24 naloxone 4 mg/actuation nasal spray 4 mg intranasal DIRECTED PRN 08/11/23 09/11/24 opiod od ondansetron 8 mg disintegrating 8 mg translingual Q8 PRN Nausea 08/11/23 09/11/24 tablet pregabalin 100 mg capsule 100 mg PO TID 08/11/23 09/11/24 trazodone 100 mg tablet 100 - 200 mg PO HS 08/11/23 09/11/24 pantoprazole 40 mg tablet,delayed 40 mg PO DAILY 02/02/24 09/11/24 release empagliflozin 10 mg tablet 10 mg PO QAM 09/11/24 09/11/24 (Jardiance) metformin 500 mg tablet,extended 1,000 mg PO BID 09/11/24 09/11/24 release 24 hr metoclopramide HCl 5 mg tablet 5 mg PO ACHS 09/11/24 09/11/24 potassium chloride 20 mEq 20 meq PO DAILY 09/11/24 09/11/24 tablet,extended release(part/cryst) (Klor-Con M) Previous Rx's Medication Instructions Recorded prochlorperazine maleate 5 mg 5 mg PO Q6H PRN nausea and 05/30/24 tablet vomiting #60 tabs cephalexin 500 mg capsule 500 mg PO Q8H 7 days #21 caps 09/13/24 doxycycline hyclate 100 mg capsule 100 mg PO BID 7 days #14 caps 09/13/24 furosemide 40 mg tablet 20 mg (1/2 x 40 mg) PO DAILY #30 09/13/24 tabs spironolactone 25 mg tablet 25 mg PO DAILY #30 tabs 09/13/24 (Aldactone) Results & Data (ED) Vital Signs Vital Signs - 24 hr 09/10/24 21:08 09/10/24 21:22 09/10/24 21:25 Temperature 38.4 C H Temperature Source Oral Pulse Rate 94 H 95 H Pulse Rate [Apical] 88 Pulse Rhythm Regular Pulse Rhythm [Apical] Regular Pulse Strength Normal Pulse Strength [Apical] Normal Respiratory Rate 20 18 Respiratory Effort / Characteristics Non-Labored Spontaneous Non-Labored Spontaneous Respiratory Depth Normal Normal Respiratory Pattern Regular Regular Blood Pressure 154/82 H Blood Pressure [Right Arm] 174/88 H Blood Pressure Mean 106 Blood Pressure Mean [Right Arm] 116 Blood Pressure Position Sitting Blood Pressure Position [Right Arm] Lying Pulse Oximetry 95 94 Oxygen Delivery Method Room Air Room Air Oxygen Flow Rate Sepsis Recent Fever Within 48 Hours Yes Sepsis New/Unexplained Change in Mental Status N/A Sepsis Action Taken by Nursing No Action Required 09/10/24 22:44 09/10/24 23:00 09/10/24 23:31 Temperature Temperature Source Pulse Rate 95 H 89 94 H Pulse Rate [Apical] Pulse Rhythm Pulse Rhythm [Apical] Pulse Strength Pulse Strength [Apical] Respiratory Rate 20 20 21 Respiratory Effort / Characteristics Respiratory Depth Respiratory Pattern Blood Pressure 142/82 H 117/88 141/73 H Blood Pressure [Right Arm] Blood Pressure Mean 105 97 102 Blood Pressure Mean [Right Arm] Blood Pressure Position Blood Pressure Position [Right Arm] Pulse Oximetry 94 94 93 Oxygen Delivery Method Oxygen Flow Rate Sepsis Recent Fever Within 48 Hours Sepsis New/Unexplained Change in Mental Status Sepsis Action Taken by Nursing 09/10/24 23:38 09/11/24 01:14 09/11/24 01:15 Temperature Temperature Source Pulse Rate 90 Pulse Rate [Apical] 90 Pulse Rhythm Pulse Rhythm [Apical] Regular Pulse Strength Pulse Strength [Apical] Normal Respiratory Rate 20 Respiratory Effort / Characteristics Non-Labored Spontaneous Respiratory Depth Normal Respiratory Pattern Regular Blood Pressure Blood Pressure [Right Arm] 117/72 Blood Pressure Mean Blood Pressure Mean [Right Arm] 87 Blood Pressure Position Blood Pressure Position [Right Arm] Lying Pulse Oximetry 96 96 Oxygen Delivery Method Nasal Cannula Room Air Oxygen Flow Rate 2 Sepsis Recent Fever Within 48 Hours Sepsis New/Unexplained Change in Mental Status Sepsis Action Taken by Nursing 09/11/24 01:30 Temperature Temperature Source Pulse Rate 88 Pulse Rate [Apical] Pulse Rhythm Pulse Rhythm [Apical] Pulse Strength Pulse Strength [Apical] Respiratory Rate 18 Respiratory Effort / Characteristics Respiratory Depth Respiratory Pattern Blood Pressure 120/83 Blood Pressure [Right Arm] Blood Pressure Mean 88 Blood Pressure Mean [Right Arm] Blood Pressure Position Blood Pressure Position [Right Arm] Pulse Oximetry 95 Oxygen Delivery Method Oxygen Flow Rate Sepsis Recent Fever Within 48 Hours Sepsis New/Unexplained Change in Mental Status Sepsis Action Taken by [facility] Medications Current Medication List: was personally reviewed by me Laboratory Data Attestation: I reviewed the patient's lab results. 09/12/24 09:49 09/12/24 09:49 Lab Results 09/10/24 09/10/24 09/10/24 Range/Units 21:23 21:45 21:55 WBC 6.76 (4.8-10.8) K/ul RBC 4.51 (4.20-5.40) M/uL Hgb 12.3 (12.0-16.0) g/dl Hct 38.3 (37.0-47.0) % MCV 84.9 (80.0-100.0) fL MCH 27.3 (25.0-34.0) pg MCHC 32.1 (32.0-36.0) g/dL RDW Std Deviation 43.2 (36.4-46.3) fL RDW Coeff of Bailey 13.9 (11.5-14.5) % Plt Count 60 L (130-400) K/uL MPV 10.5 (9.4-12.4) fL Immature Gran % (Auto) 0.7 % Neut % (Auto) 82.3 % Lymph % (Auto) 6.8 % Kinney % (Auto) 7.4 % Eos % (Auto) 2.2 % Baso % (Auto) 0.6 % Neut # (Auto) 5.56 (1.40-6.50) K/uL Lymph # (Auto) 0.46 L (1.20-3.40) K/uL Kinney # (Auto) 0.50 (0.11-0.59) K/uL Eos # (Auto) 0.15 (0.00-0.50) K/uL Baso # (Auto) 0.04 (0.00-0.20) K/uL Immature Gran # (Auto) 0.05 (0.01-0.20) K/uL Sodium 141 (136-145) mmol/L Potassium 4.2 (3.5-5.1) mmol/L Chloride 103 (98-107) mmol/L Carbon Dioxide 34 H (21-32) mmol/L Anion Gap 4 (3-11) BUN 27 H (6-23) mg/dl Creatinine 1.71 H (0.6-1.2) mg/dl Est Cr Clr Drug Dosing 47.4 ml/min eGFR 35.61 BUN/Creatinine Ratio 15.8 (10-20) Glucose 174 H (70-99(Fasting)) mg/dl POC Glucose (70-99) mg/dl Lactate 1.1 (0.4-2.0) mmol/L Calcium 8.8 (8.6-10.3) mg/dl Total Bilirubin 0.9 (0.2-1.0) mg/dl AST 55 H (13-39) U/L ALT 19 (7-52) U/L Alkaline Phosphatase 171 H (34-104) U/L Troponin I High Sens 3.4 (0-14) pg/ml Total Protein 7.4 (6.0-8.3) gm/dl Albumin 4.2 (3.4-5.0) gm/dl Globulin 3.2 (2.5-4.0) gm/dl Albumin/Globulin Ratio 1.3 (0.9-2) Procalcitonin 0.41 (0-0.5) ng/ml Nasal Screen MRSA (PCR) (Negative) Adenovirus (PCR) Not Detected (NotDetected) B. pertussis DNA (PCR) Not Detected (NotDetected) B.parapertussis DNA PCR Not Detected (NotDetected) C. pneumoniae DNA (PCR) Not Detected (NotDetected) Coronavirus OC43 (PCR) Not Detected (NotDetected) Coronavirus HKU1 (PCR) Not Detected (NotDetected) Coronavirus 229E (PCR) Not Detected (NotDetected) SARS-CoV-2 (PCR) Not Detected (NotDetected) Coronavirus NL63 (PCR) Not Detected (NotDetected) Human Metapneumovir PCR Not Detected (NotDetected) Influenza Type A (PCR) Not Detected (NotDetected) Influenza Type B (PCR) Not Detected (NotDetected) M. pneumoniae (PCR) Not Detected (NotDetected) Parainfluenza 1 (PCR) Not Detected (NotDetected) Parainfluenza 2 (PCR) Not Detected (NotDetected) Parainfluenza 3 (PCR) Not Detected (NotDetected) Parainfluenza 4 (PCR) Not Detected (NotDetected) RSV (PCR) Not Detected (NotDetected) Entero/Rhino (PCR) Not Detected (NotDetected) 09/10/24 09/11/24 Range/Units 22:27 00:57 WBC (4.8-10.8) K/ul RBC (4.20-5.40) M/uL Hgb (12.0-16.0) g/dl Hct (37.0-47.0) % MCV (80.0-100.0) fL MCH (25.0-34.0) pg MCHC (32.0-36.0) g/dL RDW Std Deviation (36.4-46.3) fL RDW Coeff of Bailey (11.5-14.5) % Plt Count (130-400) K/uL MPV (9.4-12.4) fL Immature Gran % (Auto) % Neut % (Auto) % Lymph % (Auto) % Kinney % (Auto) % Eos % (Auto) % Baso % (Auto) % Neut # (Auto) (1.40-6.50) K/uL Lymph # (Auto) (1.20-3.40) K/uL Kinney # (Auto) (0.11-0.59) K/uL Eos # (Auto) (0.00-0.50) K/uL Baso # (Auto) (0.00-0.20) K/uL Immature Gran # (Auto) (0.01-0.20) K/uL Sodium (136-145) mmol/L Potassium (3.5-5.1) mmol/L Chloride (98-107) mmol/L Carbon Dioxide (21-32) mmol/L Anion Gap (3-11) BUN (6-23) mg/dl Creatinine (0.6-1.2) mg/dl Est Cr Clr Drug Dosing ml/min eGFR BUN/Creatinine Ratio (10-20) Glucose (70-99(Fasting)) mg/dl POC Glucose 102 H (70-99) mg/dl Lactate (0.4-2.0) mmol/L Calcium (8.6-10.3) mg/dl Total Bilirubin (0.2-1.0) mg/dl AST (13-39) U/L ALT (7-52) U/L Alkaline Phosphatase (34-104) U/L Troponin I High Sens (0-14) pg/ml Total Protein (6.0-8.3) gm/dl Albumin (3.4-5.0) gm/dl Globulin (2.5-4.0) gm/dl Albumin/Globulin Ratio (0.9-2) Procalcitonin (0-0.5) ng/ml Nasal Screen MRSA (PCR) Negative (Negative) Adenovirus (PCR) (NotDetected) B. pertussis DNA (PCR) (NotDetected) B.parapertussis DNA PCR (NotDetected) C. pneumoniae DNA (PCR) (NotDetected) Coronavirus OC43 (PCR) (NotDetected) Coronavirus HKU1 (PCR) (NotDetected) Coronavirus 229E (PCR) (NotDetected) SARS-CoV-2 (PCR) (NotDetected) Coronavirus NL63 (PCR) (NotDetected) Human Metapneumovir PCR (NotDetected) Influenza Type A (PCR) (NotDetected) Influenza Type B (PCR) (NotDetected) M. pneumoniae (PCR) (NotDetected) Parainfluenza 1 (PCR) (NotDetected) Parainfluenza 2 (PCR) (NotDetected) Parainfluenza 3 (PCR) (NotDetected) Parainfluenza 4 (PCR) (NotDetected) RSV (PCR) (NotDetected) Entero/Rhino (PCR) (NotDetected) Administered Medications Discontinued Medications Acetaminophen (Acetaminophen 500 Mg Tab) 1,000 mg PO Q6H PRN PRN Reason: fever/pain Stop: 10/11/24 02:24 Last Admin: 09/11/24 13:49 Dose: 1,000 mg Documented By: MABEL Atorvastatin Calcium (Atorvastatin 40 Mg Tab) 40 mg PO DAILYBL [facility] Stop: 10/11/24 10:29 Last Admin: 09/13/24 11:24 Dose: 40 mg Documented By: Admin: 09/12/24 08:35 Dose: 40 mg Documented By: Admin: 09/11/24 12:56 Dose: 40 mg Documented By: MABEL Bacitracin (Bacitracin Oint 14 Gm Tube) 1 appln EXT BID [facility] Stop: 10/11/24 12:14 Last Admin: 09/13/24 07:46 Dose: 1 appln Documented By: Admin: 09/12/24 20:09 Dose: 1 appln Documented By: Admin: 09/12/24 08:36 Dose: 1 appln Documented By: Admin: 09/11/24 20:44 Dose: 1 appln Documented By: Admin: 09/11/24 12:14 Dose: 1 appln Documented By: MABEL Baclofen (Baclofen 10 Mg Tab) 10 mg PO TID [facility] Stop: 10/11/24 08:59 Last Admin: 09/13/24 07:47 Dose: 10 mg Documented By: Admin: 09/12/24 20:10 Dose: 10 mg Documented By: Admin: 09/12/24 14:32 Dose: 10 mg Documented By: Admin: 09/12/24 08:34 Dose: 10 mg Documented By: Admin: 09/11/24 20:24 Dose: 10 mg Documented By: Admin: 09/11/24 13:50 Dose: 10 mg Documented By: Admin: 09/11/24 09:47 Dose: 10 mg Documented By: MABEL Dicyclomine HCl (Dicyclomine Hcl 20 Mg Tab) 20 mg PO HS MARCIA Stop: 10/11/24 20:59 Last Admin: 09/12/24 20:10 Dose: 20 mg Documented By: Admin: 09/11/24 20:24 Dose: 20 mg Documented By: BRENNA Doxycycline Hyclate (Doxycycline Hyclate 100 Mg Cap) 100 mg PO BID MARCIA Stop: 09/18/24 20:59 Last Admin: 09/13/24 07:48 Dose: 100 mg Documented By: Admin: 09/12/24 20:10 Dose: 100 mg Documented By: Admin: 09/12/24 08:35 Dose: 100 mg Documented By: Admin: 09/11/24 20:21 Dose: 100 mg Documented By: BRENNA Escitalopram Oxalate (Escitalopram Oxalate 20 Mg Tab) 20 mg PO QAM MARCIA Stop: 10/11/24 08:59 Last Admin: 09/13/24 07:47 Dose: 20 mg Documented By: Admin: 09/12/24 08:35 Dose: 20 mg Documented By: Admin: 09/11/24 12:56 Dose: 20 mg Documented By: MABEL Heparin Sodium (Porcine) (Heparin 100 Unit/Ml 5ml Flush) 5 ml FLUSH NOW STA Stop: 09/13/24 10:40 Last Admin: 09/13/24 11:25 Dose: 5 ml Documented By: ROJAS Hydroxyzine HCl (Hydroxyzine Hcl 25 Mg Tab) 25 mg PO TID MARCIA Stop: 10/11/24 08:59 Last Admin: 09/13/24 07:46 Dose: 25 mg Documented By: Admin: 09/12/24 20:10 Dose: 25 mg Documented By: Admin: 09/12/24 14:32 Dose: 25 mg Documented By: Admin: 09/12/24 08:35 Dose: 25 mg Documented By: Admin: 09/11/24 20:22 Dose: 25 mg Documented By: Admin: 09/11/24 13:52 Dose: 25 mg Documented By: Admin: 09/11/24 09:47 Dose: 25 mg Documented By: MABEL Ceftriaxone Sodium (Rocephin) 2,000 mg in 50 mls @ 100 mls/hr IV NOW STA Stop: 09/10/24 22:34 Last Infusion: 09/10/24 23:29 Dose: Infused Documented By: Admin: 09/10/24 22:45 Dose: 100 mls/hr Documented By: STEVE Acetaminophen (Ofirmev) 1,000 mg in 100 mls @ 400 mls/hr IV NOW STA Stop: 09/10/24 23:20 Last Infusion: 09/11/24 00:50 Dose: Infused Documented By: Admin: 09/10/24 23:22 Dose: 400 mls/hr Documented By: MANUEL Doxycycline Hyclate 100 mg/ (Dextrose) 100 mls @ 50 mls/hr IV NOW STA Stop: 09/11/24 04:14 Last Infusion: 09/11/24 05:01 Dose: Infused Documented By: Admin: 09/11/24 02:34 Dose: 50 mls/hr Documented By: GIOVANNI Albumin Human (Albumin 25%) 12.5 gm in 50 mls @ 50 mls/hr IV ONE STA Stop: 09/11/24 04:31 Last Infusion: 09/11/24 05:33 Dose: Infused Documented By: Admin: 09/11/24 04:06 Dose: 50 mls/hr Documented By: MANUEL Cefazolin Sodium (Ancef 2000mg) 2,000 mg in 15 mls @ 3.75 mls/min IV Q8H [facility]; Protocol Stop: 09/18/24 07:59 Last Admin: 09/13/24 07:53 Dose: 3.75 mls/min Documented By: Admin: 09/12/24 23:39 Dose: 3.75 mls/min Documented By: Admin: 09/12/24 16:11 Dose: 3.75 mls/min Documented By: Admin: 09/12/24 08:22 Dose: 3.75 mls/min Documented By: LISETTE Co-signed By: CM Admin: 09/11/24 23:12 Dose: 3.75 mls/min Documented By: Admin: 09/11/24 15:37 Dose: 3.75 mls/min Documented By: Admin: 09/11/24 09:44 Dose: 3.75 mls/min Documented By: MABEL Insulin Aspart (Insulin, Rapid-Acting Pump) 0 each SC ACHS MARCIA; Protocol Stop: 10/11/24 07:29 Last Admin: 09/13/24 08:08 Dose: 6.2 each Documented By: ROJAS Co-signed By: PRABHAKAR Admin: 09/12/24 20:16 Dose: 14 each Documented By: AES Co-signed By: robotic machine operator: 09/12/24 17:49 Dose: 13.8 each Documented By: ELC Co-signed By: [facility] Admin: 09/12/24 11:04 Dose: 25.5 each Documented By: ELC Co-signed By: [facility] Admin: 09/12/24 09:30 Dose: 8.7 each Documented By: ELC Co-signed By: [facility] Admin: 09/11/24 20:13 Dose: 14.2 each Documented By: BRENNA Co-signed By: MATTHEW Admin: 09/11/24 18:14 Dose: 14.2 each Documented By: ISAI Co-signed By: RAEANN Admin: 09/11/24 12:14 Dose: 9.3 each Documented By: MABEL Co-signed By: TK Admin: 09/11/24 09:44 Dose: Not Given Documented By: MABEL Ioversol (Optiray 320 100ml) 94 ml IV ONCE ONE Stop: 09/11/24 03:13 Last Admin: 09/11/24 03:12 Dose: 94 ml Documented By: JANUSZ Loratadine (Loratadine 10 Mg Tab) 10 mg PO QAM PRN PRN Reason: Itching Stop: 10/11/24 03:15 Last Admin: 09/13/24 07:47 Dose: 10 mg Documented By: ROJAS Metoclopramide HCl (Metoclopramide Hcl 5 Mg Tablet) 5 mg PO ACHS MARCIA Stop: 10/11/24 07:29 Last Admin: 09/13/24 07:47 Dose: 5 mg Documented By: Admin: 09/12/24 20:11 Dose: 5 mg Documented By: Admin: 09/12/24 17:49 Dose: 5 mg Documented By: Admin: 09/12/24 12:55 Dose: 5 mg Documented By: Admin: 09/12/24 08:35 Dose: 5 mg Documented By: Admin: 09/11/24 20:22 Dose: 5 mg Documented By: Admin: 09/11/24 17:01 Dose: 5 mg Documented By: Admin: 09/11/24 11:22 Dose: 5 mg Documented By: Admin: 09/11/24 07:56 Dose: Not Given Documented By: MABEL Miscellcameron (Check Buprenorphine Patch) 1 each N/A QS MARCIA Stop: 10/11/24 07:59 Last Admin: 09/13/24 07:48 Dose: 1 each Documented By: Admin: 09/12/24 23:39 Dose: 1 each Documented By: Admin: 09/12/24 16:08 Dose: 1 each Documented By: ELSasha Admin: 09/12/24 08:36 Dose: 1 each Documented By: Admin: 09/11/24 23:13 Dose: 1 each Documented By: Admin: 09/11/24 15:33 Dose: 1 each Documented By: Admin: 09/11/24 07:57 Dose: 1 each Documented By: MABEL Florescellcameron (Continuous Glucose Monitor) 0 each N/A ACHS MARCIA Stop: 10/11/24 07:29 Last Admin: 09/13/24 08:07 Dose: Not Given Documented By: Admin: 09/12/24 20:23 Dose: 1 each Documented By: Admin: 09/12/24 17:44 Dose: Not Given Documented By: Admin: 09/12/24 12:55 Dose: Not Given Documented By: Admin: 09/12/24 08:34 Dose: Not Given Documented By: Admin: 09/11/24 19:32 Dose: Not Given Documented By: Admin: 09/11/24 15:33 Dose: Not Given Documented By: Admin: 09/11/24 12:13 Dose: Not Given Documented By: Admin: 09/11/24 07:56 Dose: Not Given Documented By: MABEL Morphine Sulfate (Morphine Sulfate 2 Mg/Ml Carp) 2 mg IV NOW STA Stop: 09/10/24 23:07 Last Admin: 09/10/24 23:21 Dose: 2 mg Documented By: MANUEL Ondansetron HCl (Ondansetron Inj 2 Mg/Ml 2 Ml Vial) 4 mg IV NOW STA Stop: 09/10/24 23:07 Last Admin: 09/10/24 23:21 Dose: 4 mg Documented By: MANUEL Oxycodone HCl (Oxycodone Hcl Ir 5 Mg Tab (Immediate Release)) 5 mg PO Q4H PRN PRN Reason: Pain Stop: 09/25/24 02:44 Last Admin: 09/11/24 09:48 Dose: 5 mg Documented By: MABEL Oxycodone HCl (Oxycodone Hcl Ir 5 Mg Tab (Immediate Release)) 5 mg PO NOW STA Stop: 09/11/24 02:47 Last Admin: 09/11/24 03:06 Dose: 5 mg Documented By: MANUEL Oxycodone HCl (Oxycodone Hcl Ir 5 Mg Tab (Immediate Release)) 5 mg PO Q3H PRN PRN Reason: Pain Stop: 09/25/24 02:44 Last Admin: 09/13/24 11:24 Dose: 5 mg Documented By: Admin: 09/13/24 07:46 Dose: 5 mg Documented By: Admin: 09/12/24 20:11 Dose: 5 mg Documented By: Admin: 09/12/24 16:16 Dose: 5 mg Documented By: Admin: 09/12/24 12:57 Dose: 5 mg Documented By: Admin: 09/12/24 08:42 Dose: 5 mg Documented By: Admin: 09/11/24 19:35 Dose: 5 mg Documented By: Admin: 09/11/24 16:14 Dose: 5 mg Documented By: Admin: 09/11/24 12:56 Dose: 5 mg Documented By: MABEL Pantoprazole Sodium (Pantoprazole 40 Mg Tab) 40 mg PO DAILY MARCIA Stop: 10/11/24 08:59 Last Admin: 09/13/24 07:46 Dose: 40 mg Documented By: Admin: 09/12/24 08:35 Dose: 40 mg Documented By: Admin: 09/11/24 09:45 Dose: 40 mg Documented By: MABEL Pregabalin (Pregabalin 100 Mg Cap) 100 mg PO TID MARCIA Stop: 10/11/24 08:59 Last Admin: 09/13/24 07:46 Dose: 100 mg Documented By: Admin: 09/12/24 20:11 Dose: 100 mg Documented By: Admin: 09/12/24 14:32 Dose: 100 mg Documented By: Admin: 09/12/24 08:34 Dose: 100 mg Documented By: Admin: 09/11/24 20:21 Dose: 100 mg Documented By: Admin: 09/11/24 13:50 Dose: 100 mg Documented By: Admin: 09/11/24 09:44 Dose: 100 mg Documented By: MABEL Sumatriptan Succinate (Sumatriptan Succinate 50 Mg Tab) 50 mg PO NOW STA Stop: 09/11/24 03:09 Last Admin: 09/11/24 04:05 Dose: 50 mg Documented By: MANUEL Trazodone HCl (Trazodone Hcl 100 Mg Tab) 100 mg PO HS MARCIA Stop: 10/11/24 20:59 Last Admin: 09/12/24 20:11 Dose: 100 mg Documented By: Admin: 09/11/24 20:24 Dose: 100 mg Documented By: [facility] Imaging Data Radiologist's Impression: Venous Doppler Study 09/11/24 00:00 EXAM: US venous doppler LE CLINICAL HISTORY: DVT. TECHNIQUE: Ultrasound examination of bilateral lower extremity veins was performed in real time and duplex. One or more of the following were performed- spectral analysis, resistive index, waveform analysis, and pulsed Doppler. COMPARISON: 02/02/2024, US venous doppler LE . FINDINGS: Limited examination due to increased body habitus. Normal phasic, non-pulsatile and spontaneous flow is noted in the bilateral common femoral, superficial femoral, popliteal, anterior and posterior tibial and peroneal veins. Visualized veins of both lower extremities demonstrate normal compressibility. No sonographic evidence of acute deep vein thrombosis (DVT) is detected in the visualized veins of both lower extremities. Compression and Augmentation: All evaluated veins compress fully with applied transducer pressure. Augmentation of venous flow is noted with distal compression. Additional Findings: No evidence of intraluminal thrombus. Possible lymph node in right inguinal region as per image, 400() IMPRESSION: 1. No sonographic evidence of acute DVT detected in the bilateral common femoral, superficial femoral, popliteal, anterior and posterior tibial and peroneal veins, at the time of examination. 2. No obvious lymph node seen in the left popliteal region in current examination. 3. Possible lymph node in right inguinal region. 4. No other significant relevant interval change is seen. Disclaimer: DVT could be missed early in the disease when clot burden is minimal. For patients with moderate and high pretest probability of DVT and negative ultrasound, the [employer] clinical guidelines recommend testing with a D-dimer assay or repeat ultrasound in 5-7 days. If symptoms worsen, the Society of radiologists in ultrasound recommends repeating ultrasound even earlier. Electronically signed by Mick Perry 09-11-2024 01:56 AM Discharge Plan Visit Data Chief Complaint: Illness Stated Complaint: SOB,LEG/ARMS SWOLLEN ED Provider: Dorita Jacinto Patient Disposition: Admitted As Inpatient Discharge Instructions Interventions: ED Discharge Assessment Last Done: 09/11/24 04:59
[2024-09-11] MEDS: oxyCODONE HCL IR 5 MG TAB (IMMEDIATE RELEASE) PO STA (03:06)
--- NOTE | 2024-09-11 03:10 | History & Physical Report ---
Date of Service September 11, 2024 Assessment & Plan (1) Syncopal episodes: Plan: Recurrent syncope Differentials include orthostasis, arrhythmia, valvular pathology RLE cellulitis, no sepsis for now ARF on CKD secondary illness Acute migraine attack seizure disorder, stable hypertension, stable hyperlipidemia, on statin Rx past hx of CVA, chronic left hemiparesis as per records NAFLD cirrhosis, some fluid retention DM2 on insulin pump, well-controlled as of recent hemoglobin A1c of 6.12 May 2024 chronic pain on Butrans patch chronic back pain status post surgery migraine, mood disorder, chronic anemia (baseline hemoglobin of 11), chronic thrombocytopenia, DONNA on CPAP. 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 SCDs Re: Thrombocytopenia Full code Text document was generated using [employer] voice recognition software. It may contain grammatical or spelling errors. Kindly contact undersigned for clarification of any documentation item in question. History of Present Illness Chief Complaint: Right leg swelling, SOB, headache Primary Care Provider: Scott Weldon MD History obtained from patient and records. Medical history significant for seizure disorder, hypertension, hyperlipidemia, past hx of CVA, chronic left hemiparesis as per records, NAFLD cirrhosis, DM2 on insulin pump, CRI (baseline creatinine 1.4-1.6), chronic pain on Butrans patch, chronic back pain status post surgery, migraine, mood disorder, chronic anemia (baseline hemoglobin of 11), chronic thrombocytopenia, DONNA on CPAP. Last confinement May, for abdominal pain. 3 weeks ago, patient noted itchy sores on her abdomen with scant drainage. Admits to picking on the sores. No fever, no chills. Improved after outpatient course of doxycycline. Last week, patient noted painful right foot swelling going to the lower leg after trying to remove callus from her heel. Intermittent scant bloody drainage as per patient. Fever chills at home. Dry cough symptoms at home. Not sure about sick contacts. SOB with some fluid retention as per patient. Compliant with home medications. Frontal headache similar to migraine attack noted yesterday. 2 unwitnessed syncopal events at home as per patient. Denies tongue biting. Urinary incontinence because she was about to pee prior to syncopal events as per patient. IV ceftriaxone administered at the ER. Medical History as above Surgical History : Hysteroscopy, vascular procedure, BTL, back surgery/spinal stimulator placement Family History : COPD, diabetes, liver disease, heart disease Personal/Social history : Non-smoker, no EtOH intake, disabled Allergies Allergy/AdvReac Type Severity Reaction Status Date / Time naproxen Allergy Unknown BLEEDING Verified 08/11/23 20:32 Home Medications Medication Instructions Recorded Confirmed Type albuterol sulfate 90 mcg/actuation 2 puff inhalation Q6 PRN Shortness 08/11/23 09/11/24 History aerosol inhaler Of Breath Or Wheezing atorvastatin 40 mg tablet 40 mg PO DAILYBL 08/11/23 09/11/24 History baclofen 10 mg tablet 10 mg PO TID 08/11/23 09/11/24 History buprenorphine 5 mcg/hour weekly 1 patch topical WK 08/11/23 09/11/24 History transdermal patch dicyclomine 20 mg tablet 20 mg PO HS 08/11/23 09/11/24 History escitalopram oxalate 20 mg tablet 20 mg PO QAM 08/11/23 09/11/24 History eszopiclone 2 mg tablet 2 mg PO HS 08/11/23 09/11/24 History hydroxyzine HCl 25 mg tablet 25 mg PO TID Anxiety 08/11/23 09/11/24 History insulin regular human 100 unit/mL 0 unit continuous subcutaneous 08/11/23 09/11/24 History injection solution (Novolin R infusion DIRECTED Regular U-100 Insulin) loratadine 10 mg tablet 10 mg PO QAM PRN Other 08/11/23 09/11/24 History magnesium oxide 400 mg PO DAILY 08/11/23 09/11/24 History meclizine 25 mg tablet 25 mg PO TID PRN .dizzy 08/11/23 09/11/24 History naloxone 4 mg/actuation nasal spray 4 mg intranasal DIRECTED PRN 08/11/23 09/11/24 History opiod od ondansetron 8 mg disintegrating 8 mg translingual Q8 PRN Nausea 08/11/23 09/11/24 History tablet pregabalin 100 mg capsule 100 mg PO TID 08/11/23 09/11/24 History trazodone 100 mg tablet 100 - 200 mg PO HS 08/11/23 09/11/24 History pantoprazole 40 mg tablet,delayed 40 mg PO DAILY 02/02/24 09/11/24 History release furosemide 40 mg tablet 40 mg PO Q OTHER DAY #0 tabs 02/04/24 09/11/24 Rx prochlorperazine maleate 5 mg 5 mg PO Q6H PRN nausea and 05/30/24 09/11/24 Rx tablet vomiting #60 tabs empagliflozin 10 mg tablet 10 mg PO QAM 09/11/24 09/11/24 History (Jardiance) metformin 500 mg tablet,extended 1,000 mg PO BID 09/11/24 09/11/24 History release 24 hr metoclopramide HCl 5 mg tablet 5 mg PO ACHS 09/11/24 09/11/24 History potassium chloride 20 mEq 20 meq PO DAILY 09/11/24 09/11/24 History tablet,extended release(part/cryst) (SanjayCon M) Past Med/Surg History Problem List (Updated 05/28/24 @ 15:44 by Gabriel Oliver MD) NAFLD (nonalcoholic fatty liver disease) (Acute) Pancytopenia (Acute) Abdominal pain (Acute) Near syncope Encephalopathy Polypharmacy (Acute) Drowsiness (Acute) Dizziness (Acute) EVA (acute kidney injury) (Acute) Falls (Acute) Abdominal pain (Acute) EVA (acute kidney injury) (Acute) Hypotension (Acute) Hematemesis (Acute) Bright red rectal bleeding (Acute) Abdominal pain (Acute) Acute hypoxemic respiratory failure Hypoxia (Acute) Pneumonia due to COVID-19 virus (Acute) Hypophosphatemia (Acute) Seizure (Acute) Right flank pain (Acute) History of liver cancer (Acute) DVT prophylaxis Seizure (Acute) UTI (urinary tract infection) (Acute) Hypomagnesemia (Acute) Dehydration (Acute) Hyperglycemia (Acute) Rene's paralysis (Acute) Hepatocellular carcinoma Epileptic seizure (Acute) Anemia (Acute) Thrombocytopenia T2DM (type 2 diabetes mellitus) (Chronic) GERD (gastroesophageal reflux disease) (Chronic) Bipolar disorder (Chronic) Chronic pain (Chronic) HTN (hypertension) (Chronic) HLD (hyperlipidemia) (Chronic) Depression (Chronic) DONNA (obstructive sleep apnea) (Chronic) Back pain (Chronic) Liver cirrhosis secondary to MENDEZ (Acute) Medical History (Updated 05/28/24 @ 15:44 by Gabriel Oliver MD) Stroke Seizure Vertigo Liver cancer H/O TIA (transient ischemic attack) and stroke Hypertension Surgical History History of tubal ligation History of hysterectomy Family History Other No significant family history Social History Smoking Status: Never smoker Tobacco Type: Cigarettes Second Hand Exposure: No; Do You Dip or Chew Tobacco: No; Hx Alcohol Use: No Hx Substance Use: No Preferred Language: Romansh Communication Ability: Effective Shank Stapler Required: No Beliefs That Will Affect Care: None Current Living Situation: Spouse Current Living Situation Comment: and a son Feels Safe at Home: Yes Assistive Devices: Cane, Denture - Upper and Glasses Review of Systems Review of Systems: As per HPI, all other systems reviewed and negative Physical Exam Physical Exam: GENERAL: Comfortable, morbidly obese, no respiratory distress SKIN: Pallor, warm HEENT: Bespectacled, pale palpebral conjunctivae, no ptosis, dry buccal mucosa NECK : Supple, short neck, no tenderness CHEST : Decreased breath sounds, no tenderness HEART : RRR, no obvious murmurs ABDOMEN: Multiple ulcerations over anterior abdomen with subcutaneous tissue exposure, no gross drainage, chronic distention,no tenderness EXTREMITIES : Tender right foot swelling extending to lower third of right LE, callus noted on both heels, no other conspicuous deformities noted NEUROLOGIC : Coherent, no facial asymmetry, gait and stance not assessed Results & Data Results & Data Vital Signs (Past 12 Hours) Vital Signs Temp Pulse Pulse Resp BP BP Pulse Ox 09/11/24 01:30 88 18 120/83 95 09/11/24 01:15 90 09/11/24 01:14 90 20 117/72 96 09/10/24 23:38 96 09/10/24 23:31 94 H 21 141/73 H 93 09/10/24 23:00 89 20 117/88 94 09/10/24 22:44 95 H 20 142/82 H 94 09/10/24 21:25 88 18 174/88 H 94 09/10/24 21:22 95 H 09/10/24 21:08 38.4 C H 94 H 20 154/82 H 95 O2 Del Method O2 Flow Rate 09/11/24 01:30 09/11/24 01:15 09/11/24 01:14 Room Air 09/10/24 23:38 Nasal Cannula 2 09/10/24 23:31 09/10/24 23:00 09/10/24 22:44 09/10/24 21:25 Room Air 09/10/24 21:22 09/10/24 21:08 Room Air Laboratory Results Laboratory Results WBC 6.76 K/ul (4.8-10.8) 09/10/24 21:23 RBC 4.51 M/uL (4.20-5.40) 09/10/24 21:23 Hgb 12.3 g/dl (12.0-16.0) 09/10/24 21:23 Hct 38.3 % (37.0-47.0) 09/10/24 21:23 MCV 84.9 fL (80.0-100.0) 09/10/24 21:23 MCH 27.3 pg (25.0-34.0) 09/10/24 21:23 MCHC 32.1 g/dL (32.0-36.0) 09/10/24 21:23 RDW Std Deviation 43.2 fL (36.4-46.3) 09/10/24 21:23 RDW Coeff of Bailey 13.9 % (11.5-14.5) 09/10/24 21:23 Plt Count 60 K/uL (130-400) L 09/10/24 21:23 MPV 10.5 fL (9.4-12.4) 09/10/24 21:23 Immature Gran % (Auto) 0.7 % 09/10/24 21:23 Neut % (Auto) 82.3 % 09/10/24 21: Lymph % (Auto) 6.8 % 09/10/24 21: [place] % (Auto) 7.4 % 09/10/24 21: Eos % (Auto) 2.2 % 09/10/24 21: Baso % (Auto) 0.6 % 09/10/24 21: Neut # (Auto) 5.56 K/uL (1.40-6.50) 09/10/24 21: Lymph # (Auto) 0.46 K/uL (1.20-3.40) L 09/10/24 21: [place] # (Auto) 0.50 K/uL (0.11-0.59) 09/10/24 21: Eos # (Auto) 0.15 K/uL (0.00-0.50) 09/10/24 21: Baso # (Auto) 0.04 K/uL (0.00-0.20) 09/10/24 21: Immature Gran # (Auto) 0.05 K/uL (0.01-0.20) 09/10/24 21:23 Sodium 141 mmol/L (136-145) 09/10/24 21: Potassium 4.2 mmol/L (3.5-5.1) 09/10/24 21: Chloride 103 mmol/L (98-107) 09/10/24 21: Carbon Dioxide 34 mmol/L (21-32) H 09/10/24 21:23 Anion Gap 4 (3-11) 09/10/24 21:23 BUN 27 mg/dl (6-23) H 09/10/24 21:23 Creatinine 1.71 mg/dl (0.6-1.2) H 09/10/24 21:23 Est Cr Clr Drug Dosing 47.4 ml/min 09/10/24 21:23 eGFR 35.61 09/10/24 21: BUN/Creatinine Ratio 15.8 (10-20) 09/10/24 21:23 Glucose 174 mg/dl (70-99(Fasting)) H 09/10/24 21:23 POC Glucose 102 mg/dl (70-99) H 09/11/24 00:57 Lactate 1.1 mmol/L (0.4-2.0) 09/10/24 21:55 Calcium 8.8 mg/dl (8.6-10.3) 09/10/24 21:23 Total Bilirubin 0.9 mg/dl (0.2-1.0) 09/10/24 21:23 AST 55 U/L (13-39) H 09/10/24 21:23 ALT 19 U/L (7-52) 09/10/24 21:23 Alkaline Phosphatase 171 U/L (34-104) H 09/10/24 21:23 Troponin I High Sens 3.4 pg/ml (0-14) 09/10/24 21:23 Total Protein 7.4 gm/dl (6.0-8.3) 09/10/24 21: Albumin 4.2 gm/dl (3.4-5.0) 09/10/24 21: Globulin 3.2 gm/dl (2.5-4.0) 09/10/24 21: Albumin/Globulin Ratio 1.3 (0.9-2) 09/10/24 21:23 Procalcitonin 0.41 ng/ml (0-0.5) 09/10/24 21:23 Nasal Screen MRSA (PCR) Negative (Negative) 09/10/24 22:27 Adenovirus (PCR) Not Detected (NotDetected) 09/10/24 21:45 B. pertussis DNA (PCR) Not Detected (NotDetected) 09/10/24 21:45 B.parapertussis DNA PCR Not Detected (NotDetected) 09/10/24 21:45 C. pneumoniae DNA (PCR) Not Detected (NotDetected) 09/10/24 21:45 Coronavirus OC43 (PCR) Not Detected (NotDetected) 09/10/24 21:45 Coronavirus HKU1 (PCR) Not Detected (NotDetected) 09/10/24 21:45 Coronavirus 229E (PCR) Not Detected (NotDetected) 09/10/24 21:45 SARS-CoV-2 (PCR) Not Detected (NotDetected) 09/10/24 21:45 Coronavirus NL63 (PCR) Not Detected (NotDetected) 09/10/24 21:45 Human Metapneumovir PCR Not Detected (NotDetected) 09/10/24 21:45 Influenza Type A (PCR) Not Detected (NotDetected) 09/10/24 21:45 Influenza Type B (PCR) Not Detected (NotDetected) 09/10/24 21:45 M. pneumoniae (PCR) Not Detected (NotDetected) 09/10/24 21:45 Parainfluenza 1 (PCR) Not Detected (NotDetected) 09/10/24 21:45 Parainfluenza 2 (PCR) Not Detected (NotDetected) 09/10/24 21:45 Parainfluenza 3 (PCR) Not Detected (NotDetected) 09/10/24 21:45 Parainfluenza 4 (PCR) Not Detected (NotDetected) 09/10/24 21:45 RSV (PCR) Not Detected (NotDetected) 09/10/24 21:45 Entero/Rhino (PCR) Not Detected (NotDetected) 09/10/24 21:45 Impressions Venous Doppler Study 09/11/24 00:00 EXAM: US venous doppler LE CLINICAL HISTORY: DVT. TECHNIQUE: Ultrasound examination of bilateral lower extremity veins was performed in real time and duplex. One or more of the following were performed- spectral analysis, resistive index, waveform analysis, and pulsed Doppler. COMPARISON: 02/02/2024, US venous doppler LE . FINDINGS: Limited examination due to increased body habitus. Normal phasic, non-pulsatile and spontaneous flow is noted in the bilateral common femoral, superficial femoral, popliteal, anterior and posterior tibial and peroneal veins. Visualized veins of both lower extremities demonstrate normal compressibility. No sonographic evidence of acute deep vein thrombosis (DVT) is detected in the visualized veins of both lower extremities. Compression and Augmentation: All evaluated veins compress fully with applied transducer pressure. Augmentation of venous flow is noted with distal compression. Additional Findings: No evidence of intraluminal thrombus. Possible lymph node in right inguinal region as per image, 400() IMPRESSION: 1. No sonographic evidence of acute DVT detected in the bilateral common femoral, superficial femoral, popliteal, anterior and posterior tibial and peroneal veins, at the time of examination. 2. No obvious lymph node seen in the left popliteal region in current examination. 3. Possible lymph node in right inguinal region. 4. No other significant relevant interval change is seen. Disclaimer: DVT could be missed early in the disease when clot burden is minimal. For patients with moderate and high pretest probability of DVT and negative ultrasound, the [employer] clinical guidelines recommend testing with a D-dimer assay or repeat ultrasound in 5-7 days. If symptoms worsen, the Society of radiologists in ultrasound recommends repeating ultrasound even earlier. Electronically signed by Mick Perry 09-11-2024 01:[address] RLE/right foot Posterior and inferior calcaneal spur is seen Subarticular degenerative cysts is noted involving calcaneal at adjacent to the posterior subtalar joint Mild subcutaneous edema is noted adjacent to the ankle and foot Diagnostic Findings Chest x-ray as per my interpretation cardiomegaly, atelectasis EKG as per my interpretation : Rate 95, NSR, LAD, LAFB, nonspecific T wave abnormalities
[2024-09-11] MEDS: OPTIRAY 320 100ml IV ONE (03:12)
[2024-09-11] MEDS ORDERED: PROMETHAZINE 6.25 MG/50.25 ML BAG IV PRN (03:15)
[2024-09-11] MEDS ORDERED: ESZOPICLONE 1 MG TAB PO PRN (03:16)
[2024-09-11] MEDS ORDERED: PHARMACY GLYCEMIC MGMT CONSULT PRN (03:23)
--- NOTE | 2024-09-11 03:57 | XRay Report ---
EXAM: XR chest 1V portable CLINICAL HISTORY: Shortness of breath. TECHNIQUE: An X-ray image of the chest is obtained in AP projection. COMPARISON: 05/10/2024 FINDINGS: Pulmonary Parenchyma: Left central venous line, its tip is noted at the cavoatrial junction. It shows possible unchanged kinking at 7 cm from its proximal end. Clinical correlation is advised. Haziness is seen in both lower zones. No pulmonary consolidation or collapse. The cardiac silhouette obscures proper visualization of the left lower zone and the left costophrenic angle. No right-sided pleural effusion or thickening. Heart and Mediastinum: Apparent cardiomegaly.(Unchanged) No mediastinal masses. Bony Thorax: Mild degenerative changes of the visualized skeleton. Soft Tissues: Soft tissues overlying the chest wall are unremarkable. A thoracic spinal cord stimulator is noted. IMPRESSION: 1. Haziness is seen in both lower zones; would recommend clinical and lab correlation to rule out pulmonary infection. 2. Stable cardiomegaly. 3. The left central venous line is in an appropriate position; however, there is a possible kinking at 7 cm of its proximal end. Clinical correlation is advised. 4. There has been no significant interval change since the previous study. Electronically signed by Mick Perry 09-11-2024 03:56 AM
[2024-09-11] MEDS: SUMAtriptan succinate 50 MG TAB PO STA (04:05)
[2024-09-11] MEDS: ALBUMIN 25% 12.5 GM/50 ML VIAL IV STA (04:06)
--- NOTE | 2024-09-11 04:42 | CT Scan Report ---
EXAM: CT tib/fib RT wo con CLINICAL HISTORY: lower tib/fib swelling (pls include ankle) TECHNIQUE: Contiguous axial CT images of right lower extremity were obtained without intravenous contrast. Coronal and sagittal reconstructions were likewise performed and indicated to increase the sensitivity for detecting clinically relevant pathology. CT scan was performed according to ALARA (as low as reasonable achievable). COMPARISON: None. FINDINGS: Posterior and inferior calcaneal spur is seen Subarticular degenerative cysts is noted involving calcaneal at adjacent to the posterior subtalar joint Mild subcutaneous edema is noted adjacent to the ankle and foot No acute fracture or dislocation. No destructive osseous lesion. The visualized muscles and tendons appear grossly unremarkable. No cortical destruction to suggest osteomyelitis. No abscess formation. No significant joint effusion. There are no soft tissue masses. IMPRESSION: Posterior and inferior calcaneal spur is seen Subarticular degenerative cysts is noted involving calcaneal at adjacent to the posterior subtalar joint Mild subcutaneous edema is noted adjacent to the ankle and foot Electronically signed by Ministerio De La Cruz 09-11-2024 04:42 AM
[2024-09-11] MEDS ORDERED: INSULIN ASPART 100 UNITS/ML VIAL SC PRN (05:24)
[2024-09-11] MEDS ORDERED: DEXTROSE 50% 50 ML SYRINGE IV PRN (05:24)
[2024-09-11] MEDS ORDERED: CARBOHYDRATES FOR HYPOGLYCEMIA PO PRN (05:24)
[2024-09-11] MEDS ORDERED: GLUCOSE 10 TAB/TUBE PO PRN (05:24)
[2024-09-11] MEDS ORDERED: GLUCOSE 40% GEL 15 GM TUBE PO PRN (05:24)
[2024-09-11] MEDS ORDERED: GLUCAGON FOR INJ 1 MG VIAL SQ PRN (05:24)
[2024-09-11 05:47] LABS: Basophils # (auto) 0.03 K/uL (0.00-0.20); Basophils % (auto) 0.5 %; Eosinophils # (auto) 0.16 K/uL (0.00-0.50); Eosinophils % (auto) 2.7 %; Hematocrit (blood only) 33.8 % (37.0-47.0); Hemoglobin 11.1 g/dl (12.0-16.0); Immature Granulocytes # (auto) 0.03 K/uL (0.01-0.20); Immature Granulocytes % (auto) 0.5 %; Lymphocytes # (auto) 0.79 K/uL (1.20-3.40); Lymphocytes % (auto) 13.5 %; Mean Corpuscular Hgb Conc 32.8 g/dL (32.0-36.0); Mean Corpuscular Volume 85.4 fL (80.0-100.0); Mean Platelet Volume 10.8 fL (9.4-12.4); Monocytes # (auto) 0.45 K/uL (0.11-0.59); Monocytes % (auto) 7.7 %; Neutrophils # (auto) 4.39 K/uL (1.40-6.50); Neutrophils % (auto) 75.1 %; Platelet Count 50 K/uL (130-400); RDW Coefficient of Variation 13.9 % (11.5-14.5); RDW Standard Deviation 42.9 fL (36.4-46.3); Red Blood Count 3.96 M/uL (4.20-5.40); White Blood Count 5.85 K/ul (4.8-10.8)
[2024-09-11 05:58] LABS: Albumin Globulin Ratio 1.2 (0.9-2); Albumin Level 3.5 gm/dl (3.4-5.0); Bilirubin,Total 0.7 mg/dl (0.2-1.0); Calcium 8.2 mg/dl (8.6-10.3); Creatinine Clr Calc Pharmacy 55.1 ml/min; Potassium 3.9 mmol/L (3.5-5.1); Total Protein 6.5 gm/dl (6.0-8.3)
--- NOTE | 2024-09-11 07:19 | CT Scan Report ---
EXAM: CT foot RT wo con CLINICAL HISTORY: swelling TECHNIQUE: Contiguous axial CT images of Right foot were obtained without intravenous contrast. Coronal and sagittal reconstructions were likewise performed and indicated to increase the sensitivity for detecting clinically relevant pathology. CT scan was performed according to ALARA (as low as reasonable achievable). COMPARISON: - FINDINGS: Subcutaneous edema is noted adjacent to the ankle and foot Posterior and inferior calcaneal spur is seen Subarticular degenerative cysts is noted involving navicular bone No acute fracture or dislocation. No destructive osseous lesion. The visualized muscles and tendons appear grossly unremarkable. No cortical destruction to suggest osteomyelitis. No abscess formation. No significant joint effusion. IMPRESSION: 1. Subcutaneous edema is noted adjacent to the ankle and foot 2. Posterior and inferior calcaneal spur 3. Subarticular degenerative cysts is noted involving navicular bone Electronically signed by Ministerio De La Cruz 09-11-2024 07:19 AM
[2024-09-11] MEDS: Continuous Glucose Monitor SCH (07:56)
[2024-09-11] MEDS: METOCLOPRAMIDE HCL 5 MG TABLET PO SCH (07:56)
[2024-09-11] MEDS: CHECK BUPRENORPHINE PATCH SCH (07:57)
--- NOTE | 2024-09-11 08:41 | CT Scan Report ---
CT chest diagnostic wo con CT DOSE: 871.5 mGy.cm CLINICAL HISTORY: 54 years-old Female with hypoxia, "kink" in central line?. Acute hypoxia TECHNIQUE: Multiaxial CT images of the chest were performed without contrast. A dose lowering techni que was utilized adhering to the principles of ALARA. COMPARISON: Chest radiograph of same day FINDINGS: No thyroid nodule or lymphadenopathy. Heart is upper limits of normal in size. Left subclav nilda [id number] catheter distal tip terminates within the SVC. There is no thoracic aortic aneurysm . No pneumothorax, pleural effusion, lobar airspace consolidation or pulmonary edema. Mild linear sub segmental bibasilar atelectasis/scarring. No suspicious pulmonary nodules. Central airways are patent . No acute upper abdominal abnormality. Unremarkable soft tissues. Partially imaged spinal stimulator l brisa terminate within the mid thoracic spine central canal and appear intact. There is no acute fract ure. IMPRESSION: 1. Mild segmental bibasilar atelectasis without acute process of the chest. 2. Satisfactory positioning of the [id number]-Hyix catheter. 3. No pleural effusion. ACT 112: Negative or not required by law. Electronically signed by: Napoleon Morris M.D. 09/11/2024 8:39 AM
[2024-09-11] MEDS: ceFAZolin 2000MG 2,000 MG/15 ML SYR IV SCH (09:44)
[2024-09-11] MEDS: INSULIN, Rapid-Acting PUMP SC SCH (09:44)
[2024-09-11] MEDS: PREGABALIN 100 MG CAP PO SCH (09:44)
[2024-09-11] MEDS: PANTOprazole 40 MG TAB PO SCH (09:45)
[2024-09-11] MEDS: BACLOFEN 10 MG TAB PO SCH (09:47)
[2024-09-11] MEDS: hydrOXYzine HCl 25 MG TAB PO SCH (09:47)
[2024-09-11] MEDS: oxyCODONE HCL IR 5 MG TAB (IMMEDIATE RELEASE) PO PRN ×2 (09:48→12:56)
--- NOTE | 2024-09-11 12:08 | Hospitalist Progress Note ---
Date of Service September 11, 2024 Assessment & Plan (1) Sepsis: (2) Cellulitis of right foot: (3) Hepatocellular carcinoma: (4) T2DM (type 2 diabetes mellitus): (5) Chronic pain: (6) Liver cirrhosis secondary to MENDEZ: (7) Orthostatic syncope: (8) Thrombocytopenia: (9) Acute renal failure superimposed on stage 3a chronic kidney disease: Plan Patient presents with recurrent syncopal episodes suspect orthostatic due to sepsis from right foot cellulitis. Patient also with lower extremity edema, suspect this is most likely due to her cirrhosis/liver cancer, may benefit from lower extremity compression stockings Continue IV antibiotics Pain control Echocardiogram pending Follow cultures Continue home insulin pump therapy for her diabetes at bedside updated plan of care as well. Admission and Anticipated Discharge Date Admission Date: September 11, 2024 Subjective Patient is still complaining of some headache, myalgias, arthralgias. No re current fever. Tylenol does help some. Physical Exam Physical Exam: Constitutional: Alert, moderately ill in appearance HEENT: Mucous membranes moist. Lungs: Clear to auscultation, decreased, no wheezes rales or rhonchi CV: S1-S2, regular Abdomen: Soft, nontender, nondistended Extremities: Bilateral lower extremity edema. Right foot and ankle ruborous, erythematous, tender, warm Neuro: No focal deficits Psych: Cooperative, normal mood Results & Data Results & Data Vital Signs (Past 12 Hours) Vital Signs Temp Pulse Pulse Resp BP BP Pulse Ox 09/11/24 07:15 71 09/11/24 06:30 70 18 130/91 98 09/11/24 06:26 09/11/24 06:26 37.5 C 72 20 130/79 97 09/11/24 06:00 75 14 130/79 96 09/11/24 05:42 76 17 129/74 95 09/11/24 05:30 75 23 123/76 97 09/11/24 05:00 75 16 119/65 97 09/11/24 04:30 76 12 120/71 96 09/11/24 04:30 78 14 120/71 96 09/11/24 04:00 79 16 114/71 96 09/11/24 03:30 82 17 122/75 97 09/11/24 03:00 87 19 129/74 96 09/11/24 03:00 37.5 C 86 20 129/74 96 04/06/25 02:30 84 17 112/75 95 09/11/24 02:00 89 21 127/78 95 09/11/24 01:30 88 18 120/83 95 09/11/24 01:15 90 09/11/24 01:14 90 20 117/72 96 O2 Del Method O2 Flow Rate 09/11/24 07:15 09/11/24 06:30 09/11/24 06:26 Nasal Cannula 2 09/11/24 06:26 Nasal Cannula 2 09/11/24 06:00 09/11/24 05:42 09/11/24 05:30 09/11/24 05:00 09/11/24 04:30 09/11/24 04:30 09/11/24 04:00 09/11/24 03:30 09/11/24 03:00 09/11/24 03:00 Room Air 09/11/24 02:30 09/11/24 02:00 09/11/24 01:30 09/11/24 01:15 09/11/24 01:14 Room Air Diagnostic Findings Reviewed imaging, laboratory and diagnostic studies. Pertinent findings as below. MRSA screen negative CT of the chest shows Port-A-Cath in appropriate position, no kink. No infiltrate, no effusion Ultrasound lower extremity negative for DVT CT of the foot consistent with cellulitis. 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
[2024-09-11] MEDS: BACITRACIN OINT 14 GM TUBE EXT SCH (12:14)
--- NOTE | 2024-09-11 12:20 | Electrocardiogram Report ---
Test Reason : Blood Pressure : */* mmHG Vent. Rate : 96 BPM Atrial Rate : 96 BPM P-R Int : 132 ms QRS Dur : 80 ms QT Int : 368 ms P-R-T Axes : 66 2 59 degrees QTcB Int : 464 ms Normal sinus rhythm Nonspecific T wave abnormality When compared with ECG of 12-May-2024 17:36, No significant change was found Confirmed by Jose Georges ([id number]) on 09/11/2024 12:19:56 PM Referred By: REFERRED SELF Confirmed By: Jose Georges
[2024-09-11] MEDS: ATORVASTATIN 40 MG TAB PO SCH (12:56)
[2024-09-11] MEDS: ESCITALOPRAM OXALATE 20 MG TAB PO SCH (12:56)
[2024-09-11] MEDS: ACETAMINOPHEN 500 MG TAB PO PRN (13:49)
[2024-09-11] MEDS: DOXYCYCLINE HYCLATE 100 MG CAP PO SCH (20:21)
[2024-09-11] MEDS: DICYCLOMINE HCL 20 MG TAB PO SCH (20:24)
[2024-09-11] MEDS: traZODone HCL 100 MG TAB PO SCH (20:24)
--- NOTE | 2024-09-12 08:30 | Hospitalist Progress Note ---
Date of Service September 12, 2024 Assessment & Plan (1) Sepsis: (2) Cellulitis of right foot: (3) Hepatocellular carcinoma: (4) T2DM (type 2 diabetes mellitus): (5) Chronic pain: (6) Liver cirrhosis secondary to MENDEZ: (7) Orthostatic syncope: (8) Thrombocytopenia: (9) Acute renal failure superimposed on stage 3a chronic kidney disease: Plan Patient continues to be significantly ill from her lower extremity cellulitis. Continue current antibiotics Continue compression of the lower extremities as able Continue insulin pump for diabetes management Continue as needed pain control for her acute pain from her headache and ankle pain in addition to her chronic pain medication requirements. Recheck orthostatic vitals Patient reports uses CPAP machine at home, 9 cm of water. She can either bring her machine in or we will order to use one of our machines tonight. Admission and Anticipated Discharge Date Admission Date: September 11, 2024 Subjective Patient states she still feels pretty ill. Headache, significant pain in the right foot. Physical Exam Physical Exam: Constitutional: Alert, moderately ill in appearance HEENT: Mucous membranes moist. Lungs: Clear to auscultation, decreased, no wheezes rales or rhonchi CV: S1-S2, regular Abdomen: Soft, nontender, nondistended Extremities: Bilateral lower extremity edema, right foot and ankle erythematous, tender, warm. Perhaps slightly improved over yesterday. Neuro: No focal deficits Psych: Cooperative, normal mood Results & Data Results & Data Vital Signs (Past 12 Hours) Vital Signs Temp Pulse Resp BP BP Pulse Ox O2 Del Method 09/12/24 07:35 37.4 C 87 16 135/81 96 Nasal Cannula 09/11/24 22:58 36.5 C 67 18 110/73 94 Nasal Cannula O2 Flow Rate 09/12/24 07:35 2 09/11/24 22:58 2 Diagnostic Findings Ac diagnostics Blood cultures sterile 24 hours (4) T2DM (type 2 diabetes mellitus) Diabetes mellitus complication status: without complication Diabetes mellitus prison insulin use: with terminal superintendent use Qualified Code(s): E11.9 - Type 2 diabetes mellitus without complications; Z79.4 - predatory animal exterminator (current) use of insulin (5) Chronic pain Chronic pain type: other chronic pain Qualified Code(s): G89.29 - Other chronic pain
[2024-09-12 10:12] LABS: Hematocrit (blood only) 32.1 % (37.0-47.0); Hemoglobin 10.3 g/dl (12.0-16.0); Mean Corpuscular Hemoglobin 27.8 pg (25.0-34.0); Mean Corpuscular Hgb Conc 32.1 g/dL (32.0-36.0); Mean Corpuscular Volume 86.8 fL (80.0-100.0); Mean Platelet Volume 10.2 fL (9.4-12.4); Platelet Count 45 K/uL (130-400); RDW Coefficient of Variation 13.7 % (11.5-14.5); White Blood Count 5.26 K/ul (4.8-10.8)
[2024-09-12 10:28] LABS: BUN Creatinine Ratio 16.4 (10-20); Calcium 8.1 mg/dl (8.6-10.3); Potassium 4.3 mmol/L (3.5-5.1)
[2024-09-12 22:59] VITALS: PULSE 74
[2024-09-13 00:07] VITALS: TEMP 98.2
[2024-09-13 07:18] VITALS: BP 148/84; RESP 18; O2SAT 90
[2024-09-13] MEDS: LORATADINE 10 MG TAB PO PRN (07:47)
--- NOTE | 2024-09-13 09:14 | Discharge Summary ---
Discharge Summary Date of Service September 13, 2024 Principal Dx & Hospital Course #1 = Principal Diagnosis (1) Sepsis: (2) Cellulitis of right foot: (3) Hepatocellular carcinoma: (4) T2DM (type 2 diabetes mellitus): (5) Chronic pain: (6) Liver cirrhosis secondary to MENDEZ: (7) Orthostatic syncope: (8) Thrombocytopenia: (9) Acute renal failure superimposed on stage 3a chronic kidney disease: Plan Patient 54-year-old female with known history of hepatocellular carcinoma, diabetes and cirrhosis presenting to the emergency room with syncopal events. In the emergency room noted to have significant cellulitis of of the right foot and signs and symptoms consistent with sepsis. Patient was admitted to the hospital. She was given fluid resuscitation and placed on broad-spectrum antibiotics. Through the course of her hospitalization she steadily improved. Blood cultures were no growth and no evidence of bacteremia. Echocardiogram showed normal ejection fraction. She did have some significant edema in the lower extremities this is most likely due to her cirrhosis and liver dysfunction and recommended compression therapies. The cellulitis of the foot significantly improved. Her headache and general arthralgias and myalgias improved. Her vital signs stabilized. She was up and ambulating and felt confident being discharged home on oral antibiotics. She will follow-up with her PCP and liver specialists. Again encouraged to wear compression stockings or some sort of compression wraps on her lower extremities to help with the chronic edema. Suspect this edema as a source of the cellulitis. Notes For Next Care Provider Encourage ongoing compression of the lower extremities Follow-up with liver specialist Recommend BMP in 10 to 14 days Medication Changes From Visit Keflex and doxycycline for cellulitis Lasix dose decreased but may daily Aldactone added Admission HPI Per Admitting Provider History obtained from patient and records. Medical history significant for seizure disorder, hypertension, hyperlipidemia, past hx of CVA, chronic left hemiparesis as per records, NAFLD cirrhosis, DM2 on insulin pump, CRI (baseline creatinine 1.4-1.6), chronic pain on Butrans patch, chronic back pain status post surgery, migraine, mood disorder, chronic anemia (baseline hemoglobin of 11), chronic thrombocytopenia, DONNA on CPAP. Last confinement May, for abdominal pain. 3 weeks ago, patient noted itchy sores on her abdomen with scant drainage. Admits to picking on the sores. No fever, no chills. Improved after outpatient course of doxycycline. Last week, patient noted painful right foot swelling going to the lower leg after trying to remove callus from her heel. Intermittent scant bloody drainage as per patient. Fever chills at home. Dry cough symptoms at home. Not sure about sick contacts. SOB with some fluid retention as per patient. Compliant with home medications. Frontal headache similar to migraine attack noted yesterday. 2 unwitnessed syncopal events at home as per patient. Denies tongue biting. Urinary incontinence because she was about to pee prior to syncopal events as per patient. IV ceftriaxone administered at the ER. Medical History as above Surgical History : Hysteroscopy, vascular procedure, BTL, back surgery/spinal stimulator placement Family History : COPD, diabetes, liver disease, heart disease Personal/Social history : Non-smoker, no EtOH intake, disabled Admission Exam Per Admitting Provider See H&P Discharge Exam Constitutional: Alert, nontoxic HEENT: Mucous membranes moist. Lungs: Clear to auscultation, decreased, no wheezes rales or rhonchi CV: S1-S2, regular Abdomen: Soft, nontender, nondistended Extremities: Bilateral lower extremity edema, erythema, rubor, calor and right foot and ankle significantly improved/resolved tenderness significantly improved Neuro: No focal deficits Psych: Cooperative, normal mood Updated Medication List Medication Instructions Recorded Confirmed Type albuterol sulfate 90 mcg/actuation 2 puff inhalation Q6 PRN Shortness 08/11/23 09/11/24 History aerosol inhaler Of Breath Or Wheezing atorvastatin 40 mg tablet 40 mg PO DAILYBL 08/11/23 09/11/24 History baclofen 10 mg tablet 10 mg PO TID 08/11/23 09/11/24 History buprenorphine 5 mcg/hour weekly 1 patch topical WK 08/11/23 09/11/24 History transdermal patch dicyclomine 20 mg tablet 20 mg PO HS 08/11/23 09/11/24 History escitalopram oxalate 20 mg tablet 20 mg PO QAM 08/11/23 09/11/24 History eszopiclone 2 mg tablet 2 mg PO HS 08/11/23 09/11/24 History hydroxyzine HCl 25 mg tablet 25 mg PO TID Anxiety 08/11/23 09/11/24 History insulin regular human 100 unit/mL 0 unit continuous subcutaneous 08/11/23 09/11/24 History injection solution (Novolin R infusion DIRECTED Regular U-100 Insulin) loratadine 10 mg tablet 10 mg PO QAM PRN Other 08/11/23 09/11/24 History magnesium oxide 400 mg PO DAILY 08/11/23 09/11/24 History meclizine 25 mg tablet 25 mg PO TID PRN .dizzy 08/11/23 09/11/24 History naloxone 4 mg/actuation nasal spray 4 mg intranasal DIRECTED PRN 08/11/23 09/11/24 History opiod od ondansetron 8 mg disintegrating 8 mg translingual Q8 PRN Nausea 08/11/23 09/11/24 History tablet pregabalin 100 mg capsule 100 mg PO TID 08/11/23 09/11/24 History trazodone 100 mg tablet 100 - 200 mg PO HS 08/11/23 09/11/24 History pantoprazole 40 mg tablet,delayed 40 mg PO DAILY 02/02/24 09/11/24 History release furosemide 40 mg tablet 40 mg PO Q OTHER DAY #0 tabs 02/04/24 09/11/24 Rx prochlorperazine maleate 5 mg 5 mg PO Q6H PRN nausea and 05/30/24 09/11/24 Rx tablet vomiting #60 tabs empagliflozin 10 mg tablet 10 mg PO QAM 09/11/24 09/11/24 History (Jardiance) metformin 500 mg tablet,extended 1,000 mg PO BID 09/11/24 09/11/24 History release 24 hr metoclopramide HCl 5 mg tablet 5 mg PO ACHS 09/11/24 09/11/24 History potassium chloride 20 mEq 20 meq PO DAILY 09/11/24 09/11/24 History tablet,extended release(part/cryst) (Klor-Con M) cephalexin 500 mg capsule 500 mg PO Q8H 7 days #21 caps 09/13/24 Rx doxycycline hyclate 100 mg capsule 100 mg PO BID 7 days #14 caps 09/13/24 Rx spironolactone 25 mg tablet 25 mg PO DAILY #30 tabs 09/13/24 Rx (Aldactone) Hospital Stay Data Consultations 09/11/24 02:04 ED Decision to Admit Stat Diagnostic Imagining Performed 09/11/24 US venous doppler LE BI Stat 09/11/24 03:13 CT foot RT wo con Stat CT tib/fib RT wo con Stat 09/11/24 07:50 CT chest diagnostic wo con Routine Reviewed imaging, laboratory and diagnostic studies. Pertinent findings as below. Blood cultures no growth at 48 hours WBCs 5.2 Hemoglobin 10.3 Electrolytes stable Creatinine 1.40 which is her baseline Glucose 165, on insulin pump Echocardiogram showed ejection fraction of 55 to 60% with normal left ventricular motion. Pending Results Patient Have Any Pending Studies at Discharge: No Discharge Instructions Given to Patient (Per Discharging Provider) I would believe you would benefit from compression stockings on your lower extremities. Recommend wearing ROMAN hose during the day Follow-up with your liver specialist as already scheduled Complete course of oral antibiotics Total Time Total Time Spent Total Time Spent (In Minutes): 32
[2024-09-13] MEDS: HEPARIN 100 UNIT/ML 5ML FLUSH FLUSH STA (11:25)
[2024-09-14] MEDS ORDERED: BUPRENORPHINE 5 MCG/HR TDSY TD SCH (09:00)
== END 2024-09-13 11:55 | disposition home or self-care (01) | DRG 872 ==
LOC: ED 21:04 → EDINP 09-11 03:12 → 2N 09-11 04:59